=== PATIENT | male | born 1960 | race American Indian/Alaskan Native ===

== ENCOUNTER 2017-10-07 09:43 | Inpatient (IN) | payer MEDICARE ==
[2017-10-07 10:28] LABS: Basophils % (Auto) 1.2 % (0.0-1.8); Eosinophils % (Auto) 0.9 % (0.0-4.3); Hematocrit 49.9 % (35.5-45.6); Hemoglobin 16.8 gm/dl (11.8-15.2); Lymphocytes # (Auto) 1.2 K/mm3 (1.2-5.4); Lymphocytes % (Auto) 27.2 % (13.4-35.0); Mean Corpuscular HGB Conc 34 % (32-34); Mean Corpuscular Hemoglobin 34 pg (28-32); Mean Corpuscular Volume 100 fl (84-94); Monocytes # (Auto) 0.7 K/mm3 (0.0-0.8); Monocytes % (Auto) 15.5 % (0.0-7.3); Platelet Count 202 K/mm3 (140-440); Red Blood Count 4.99 M/mm3 (3.65-5.03); Red Cell Distribution Width 15.3 % (13.2-15.2)
[2017-10-07 10:42] LABS: Alanine Aminotransferase 17 units/L (7-56); Albumin 3.2 g/dL (3.9-5); BUN/Creatinine Ratio 12; Blood Urea Nitrogen 14 mg/dL (9-20); Calcium 9.3 mg/dL (8.4-10.2); Hemolysis Index 36
[2017-10-07] MEDS ORDERED: ATIVAN PO ONE (10:52)
[2017-10-07 12:07] LABS: Bacteria,Urine 1+ /HPF (Negative); Bilirubin,Urine NEG (Negative); Blood,Urine NEG (Negative); Color,Urine Straw (Yellow); Protein,Urine <15 mg/dL mg/dL (Negative); RBC,Urine < 1.0 /HPF (0.0-6.0); Urobilinogen,Urine < 2.0 mg/dL (<2.0); WBC,Urine < 1.0 /HPF (0.0-6.0)
[2017-10-07 12:15] LABS: Amphetamine Screen,Urine PRESUMPTIVE NEGATIVE; Benzodiazepines Screen,Urine PRESUMPTIVE NEGATIVE; Cannabinoid Screen,Urine PRESUMPTIVE NEGATIVE; Cocaine Screen,Urine PRESUMPTIVE NEGATIVE; Methadone Screen,Urine PRESUMPTIVE NEGATIVE; Opiate Screen,Urine PRESUMPTIVE NEGATIVE
[2017-10-07] MEDS ORDERED: GEODON IM ONE (12:23)
--- NOTE | 2017-10-07 12:50 | Emergency Department Report ---
ED Syncope HPI - General Chief Complaint: Altered Mental Status Stated Complaint: INCOHERENT Time Seen by Provider: 10/07/17 10:39 Source: other (care takers) Exam Limitations: other (does not speak) - History of Present Illness Initial Comments: 57-year-old male with a past medical history of autism, MR,, Down's syndrome, hyperlipidemia, and partially blind presents to the hospital with complaints of possible syncopal episode. Patient apparently has sleep apnea and falls asleep frequently about the date. He has received extensive recent outpatient workup and they attempted to start a CPAP mask yesterday the patient refused to wear the mask. They were scheduled to see their primary care doctor today to determine alternative treatment. After breakfast patient seemed to become unresponsive while sitting at the table. Assuming he was asleep the final canoe inspector tried to stand the patient up but then he became unresponsive. No seizure activity noted. Patient's currently at his baseline mental status. He's been eating and drinking appropriately with no other abnormal behavior or infectious symptoms reported. Patient is nonverbal at baseline. - Related Data Allergies/Adverse Reactions: Allergies codeine Allergy (Verified 02/11/16 20:08) Unknown ED Review of Systems ROS: Stated complaint: INCOHERENT Other details as noted in HPI Comment: All other systems reviewed and negative (as per caretakers since pt is nonverbal) ED Past Medical Hx - Past Medical History Previous Medical History?: Yes Additional medical history: MR,DOWN SYNDROME, Hyperlipidemia, Partially blind - Surgical History Past Surgical History?: No - Social History Smoking Status: Never Smoker Substance Use Type: Prescribed ED Physical Exam - General Limitations: No Limitations - Other Other exam information: General: Nonverbal Head exam: Atraumatic, normocephalic Eyes exam: Normal appearance ENT: Moist mucous membrane, normal oropharynx Neck exam: Normal inspection, full range of motion Respiratory exam: Clear to auscultation bilateral, no wheezes, rales, crackles Cardiovascular: Normal rate and rhythm Abdomen: Soft, nondistended, and nontender, with normal bowel sounds, no rebound, or guarding Extremity: Full range of motion normal inspection no deformity Back: Normal Inspection, full range of motion, no tenderness Neurologic: Alert, nonverbal, follows commands, no gross motor or sensory deficit Psychiatric: normal affect, normal mood Skin: Warm, dry, intact ED Course Vital Signs 0310/07/17 10/07/17 09:52 11:00 11:07 Temperature 97.8 F 98.6 F Pulse Rate 77 65 Respiratory 18 11 L Rate Blood Pressure 118/52 125/72 Blood Pressure 112/55 [Right] O2 Sat by Pulse 99 100 Oximetry ED Medical Decision Making - Lab Data Result diagrams: 10/07/17 10:00 10/07/17 10:00 Lab Results 10/07/17 10/07/17 10/07/17 Range/Units 10:00 10:00 10:00 WBC 4.2 L (4.5-11.0) K/mm3 RBC 4.99 (3.65-5.03) M/mm3 Hgb 16.8 H (11.8-15.2) gm/dl Hct 49.9 H (35.5-45.6) % MCV 100 H (84-94) fl MCH 34 H (28-32) pg MCHC 34 (32-34) % RDW 15.3 H (13.2-15.2) % Plt Count 202 (140-440) K/mm3 Lymph % (Auto) 27.2 (13.4-35.0) % [place] % (Auto) 15.5 H (0.0-7.3) % Eos % (Auto) 0.9 (0.0-4.3) % Baso % (Auto) 1.2 (0.0-1.8) % Lymph # 1.2 (1.2-5.4) K/mm3 [place] # 0.7 (0.0-0.8) K/mm3 Eos # 0.0 (0.0-0.4) K/mm3 Baso # 0.0 (0.0-0.1) K/mm3 Seg Neutrophils % 55.2 (40.0-70.0) % Seg Neutrophils # 2.3 (1.8-7.7) K/mm3 Sodium 139 (137-145) mmol/L Potassium 3.7 (3.6-5.0) mmol/L Chloride 99.6 (98-107) mmol/L Carbon Dioxide 29 (22-30) mmol/L Anion Gap 14 mmol/L BUN 14 (9-20) mg/dL Creatinine 1.2 (0.8-1.5) mg/dL Estimated GFR > 60 ml/min BUN/Creatinine Ratio 12 % Glucose 71 L (75-100) mg/dL Calcium 9.3 (8.4-10.2) mg/dL Total Bilirubin 0.60 (0.1-1.2) mg/dL AST 25 (5-40) units/L ALT 17 (7-56) units/L Alkaline Phosphatase 73 (35-129) units/L Total Creatine Kinase 125 (55-170) units/L CK-MB (CK-2) 3.0 (0.0-4.0) ng/mL CK-MB (CK-2) Rel Index 2.4 (0-4) Troponin T < 0.010 (0.00-0.029) ng/mL Total Protein 7.1 (6.3-8.2) g/dL Albumin 3.2 L (3.9-5) g/dL Albumin/Globulin Ratio 0.8 % Urine Color (Yellow) Urine Turbidity (Clear) Urine pH (5.0-7.0) Ur Specific [place] (1.003-1.030) Urine Protein (Negative) mg/dL Urine Glucose (UA) (Negative) mg/dL Urine Ketones (Negative) mg/dL Urine Blood (Negative) Urine Nitrite (Negative) Urine Bilirubin (Negative) Urine Urobilinogen (<2.0) mg/dL Ur Leukocyte Esterase (Negative) Urine WBC (Auto) (0.0-6.0) /HPF Urine RBC (Auto) (0.0-6.0) /HPF Urine Bacteria (Auto) (Negative) /HPF Urine Opiates Screen Urine Methadone Screen Ur Barbiturates Screen Ur Phencyclidine Scrn Ur Amphetamines Screen U Benzodiazepines Scrn Urine Cocaine Screen U Marijuana (THC) Screen Drugs of Abuse Note 10/07/17 10/07/17 Range/Units 11:36 11:36 WBC (4.5-11.0) K/mm3 RBC (3.65-5.03) M/mm3 Hgb (11.8-15.2) gm/dl Hct (35.5-45.6) % MCV (84-94) fl MCH (28-32) pg MCHC (32-34) % RDW (13.2-15.2) % Plt Count (140-440) K/mm3 Lymph % (Auto) (13.4-35.0) % [place] % (Auto) (0.0-7.3) % Eos % (Auto) (0.0-4.3) % Baso % (Auto) (0.0-1.8) % Lymph # (1.2-5.4) K/mm3 [place] # (0.0-0.8) K/mm3 Eos # (0.0-0.4) K/mm3 Baso # (0.0-0.1) K/mm3 Seg Neutrophils % (40.0-70.0) % Seg Neutrophils # (1.8-7.7) K/mm3 Sodium (137-145) mmol/L Potassium (3.6-5.0) mmol/L Chloride (98-107) mmol/L Carbon Dioxide (22-30) mmol/L Anion Gap mmol/L BUN (9-20) mg/dL Creatinine (0.8-1.5) mg/dL Estimated GFR ml/min BUN/Creatinine Ratio % Glucose (75-100) mg/dL Calcium (8.4-10.2) mg/dL Total Bilirubin (0.1-1.2) mg/dL AST (5-40) units/L ALT (7-56) units/L Alkaline Phosphatase (35-129) units/L Total Creatine Kinase (55-170) units/L CK-MB (CK-2) (0.0-4.0) ng/mL CK-MB (CK-2) Rel Index (0-4) Troponin T (0.00-0.029) ng/mL Total Protein (6.3-8.2) g/dL Albumin (3.9-5) g/dL Albumin/Globulin Ratio % Urine Color Straw (Yellow) Urine Turbidity Clear (Clear) Urine pH 7.0 (5.0-7.0) Ur Specific [place] 1.005 (1.003-1.030) Urine Protein <15 mg/dl (Negative) mg/dL Urine Glucose (UA) Neg (Negative) mg/dL Urine Ketones Neg (Negative) mg/dL Urine Blood Neg (Negative) Urine Nitrite Neg (Negative) Urine Bilirubin Neg (Negative) Urine Urobilinogen < 2.0 (<2.0) mg/dL Ur Leukocyte Esterase Neg (Negative) Urine WBC (Auto) < 1.0 (0.0-6.0) /HPF Urine RBC (Auto) < 1.0 (0.0-6.0) /HPF Urine Bacteria (Auto) 1+ (Negative) /HPF Urine Opiates Screen Presumptive negative Urine Methadone Screen Presumptive negative Ur Barbiturates Screen Presumptive negative Ur Phencyclidine Scrn Presumptive negative Ur Amphetamines Screen Presumptive negative U Benzodiazepines Scrn Presumptive negative Urine Cocaine Screen Presumptive negative U Marijuana (THC) Screen Presumptive negative Drugs of Abuse Note Disclamer - EKG Data -: EKG Interpreted by Pr EKG shows normal: sinus rhythm, axis (qrs 58), QRS complexes (75), ST-T waves ( no stemi) Rate: bradycardia (51) - Radiology Data Radiology results: report reviewed read by radiology ct head: no acute findings - Medical Decision Making Possible syncope versus sleeping episode Caretakers state that patient passed out in episode was different from his typical sleeping spells Patient required Ativan and Geodon for sedation to obtain CT labs, Ua, ct head unremarkable - Differential Diagnosis syncope, narcolepsy, encephalopathy, infection Critical care attestation.: If time is entered above; I have spent that time in minutes in the direct care of this critically ill patient, excluding procedure time. ED Disposition Clinical Impression: Syncope, Mental retardation Disposition: DC-09 OP ADMIT IP TO THIS HOSP Is pt being admited?: Yes Condition: Stable Time of Disposition: 15:14
[2017-10-07] MEDS ORDERED: ATIVAN IM ONE (13:51)
--- NOTE | 2017-10-07 14:13 | Cat Scan Report ---
CT HEAD WITHOUT CONTRAST: HISTORY: Syncope. TECHNIQUE: Sequential 2.5mm CT images. COMPARISON: 03/11/11. FINDINGS: Cerebral Parenchyma: Within normal limits. Cerebellum: Within normal limits. Brainstem: Within normal limits. Ventricles: Normal. Sella: Normal. Extra-axial spaces: Normal. Basal Cisterns: Normal. Intracranial Hemorrhage: None. Midline Shift: None. Calvarium: Normal. Sinuses: Normal. Mastoid Air Cells: Normal. Visualized Orbits: Normal. IMPRESSION: Cranial CT scan within normal limits.
[2017-10-07] MEDS ORDERED: ZOFRAN IV PRN (15:28)
[2017-10-07] MEDS ORDERED: TYLENOL PO PRN (15:28)
[2017-10-07] MEDS ORDERED: PROVENTIL IH PRN (15:28)
[2017-10-07] MEDS ORDERED: SODIUM CHLORIDE FLUSH SYRINGE 10 ML IV PRN (15:28)
[2017-10-07] MEDS ORDERED: GEODON IM PRN (15:31)
[2017-10-07] MEDS ORDERED: ATIVAN IV NR (15:45)
--- NOTE | 2017-10-07 15:56 | History and Physical Report ---
History of Present Illness Chief complaint: confused, and he passed out History of present illness: 57 YO Male with Autism, MR, Down's Syndrome, HLD, NOY Noncompliant with CPAP, Partial Blindness presents to ED for evaluation. Pt is nonverbal and unable to provide detailed history. Pt history taken from ED staff, and medical records, and caregiver. Pt caregiver is at bedside during exam and interview. As per caregiver, the patient became confused after eating breakfast this morning and became responsive while sitting at the table. Assuming he was asleep-the chief reservoir engineering attempted to stand the patient up without success. The patient became unresponsive. EMS notified, and upon arrival the patient was found to be confused and in respiratory distress. The patient was transported to [facility] for further care and evaluation. Pt seen and evaluated in ED and admitted to medical floor. Past History Past Medical History: hyperlipidemia, other (MR, Autism,Downs syndrome ) Past Surgical History: No surgical history Social history: single. denies: smoking, alcohol abuse, prescription drug abuse Family history: no significant family history (reviewed) Medications and Allergies Allergies Allergy/AdvReac Type Severity Reaction Status Date / Time codeine Allergy Unknown Verified 02/11/16 20:08 Active Meds: Active Medications Acetaminophen (Tylenol) 650 mg PO Q4H PRN PRN Reason: Pain MILD(1-3)/Fever >100.5/[place] Albuterol (Proventil) 2.5 mg IH Q4HRT PRN PRN Reason: Shortness Of Breath Lorazepam (Ativan) 2 mg IV HIV/AIDS CARE NURSE NR Ondansetron HCl (Zofran) 4 mg IV Q8H PRN PRN Reason: Nausea And Vomiting Sodium Chloride (Sodium Chloride Flush Syringe 10 Ml) 10 ml IV BID LAZARUS Sodium Chloride (Sodium Chloride Flush Syringe 10 Ml) 10 ml IV PRN PRN PRN Reason: LINE FLUSH Ziprasidone (Geodon) 10 mg IM ONCE PRN PRN Reason: Agitation Review of Systems ROS unobtainable: due to mental status Exam - Constitutional Vitals: Temp Pulse Resp BP Pulse Ox 98.6 F 65 11 L 112/55 100 10/07/17 11:07 10/07/17 11:07 10/07/17 11:07 10/07/17 11:07 10/07/17 11:07 General appearance: Present: mild distress - EENT Eyes: Present: PERRL ENT: hearing intact, clear oral mucosa - Neck Neck: Present: supple, normal ROM - Respiratory Respiratory effort: labored Respiratory: bilateral: diminished - Cardiovascular Heart Sounds: Present: S1 & S2. Absent: rub, click - Extremities Extremities: pulses symmetrical, No edema - Abdominal General gastrointestinal: Present: soft, non-tender, non-distended, normal bowel sounds Male genitourinary: Present: normal - Integumentary Integumentary: Present: clear, warm, dry - Musculoskeletal Musculoskeletal: gait normal, strength equal bilaterally - Psychiatric Psychiatric: no intact judgment & insight, no memory intact - Neurologic Neurologic: no gait normal Results - Labs CBC & Chem 7: 10/07/17 10:00 10/07/17 10:00 Labs: Abnormal lab results 10/07/17 10/07/17 Range/Units 10:00 10:00 WBC 4.2 L (4.5-11.0) K/mm3 Hgb 16.8 H (11.8-15.2) gm/dl Hct 49.9 H (35.5-45.6) % MCV 100 H (84-94) fl MCH 34 H (28-32) pg RDW 15.3 H (13.2-15.2) % [place] % (Auto) 15.5 H (0.0-7.3) % Glucose 71 L (75-100) mg/dL Albumin 3.2 L (3.9-5) g/dL Assessment and Plan - Patient Problems (1) Encephalopathy Current Visit: Yes Status: Acute Plan to address problem: CT Head, neuro checks, EEG, BMP, IVF resuscitation, (2) NOY (obstructive sleep apnea) Current Visit: Yes Status: Acute Plan to address problem: NIPPV at night, supportive care, (3) Respiratory failure Current Visit: Yes Status: Acute Qualifiers: Chronicity: acute Respiratory failure complication: hypoxia Qualified Code(s): J96.01 - Acute respiratory failure with hypoxia Plan to address problem: Supplemental oxygen, nebulizer therapy, CTA chest, Chest x ray, (4) DVT prophylaxis Current Visit: Yes Status: Acute Plan to address problem: SCD to BLE while in bed.
--- NOTE | 2017-10-07 16:28 | Cat Scan Report ---
FINAL REPORT EXAM: CT ANGIO CHEST HISTORY: dypsnea TECHNIQUE: CT chest CT angiogram with intravenous contrast and multiplanar reconstructions PRIORS: None. FINDINGS: There is no evidence of filling defect within the central pulmonary vasculature to suggest the presence of acute pulmonary embolus. No evidence of mediastinal pathologic lymph node enlargement Heart and great vessels are unremarkable. The aorta is normal in caliber. No focal pulmonary infiltrate identified. No pleural fluid collection seen. No acute pulmonary abnormality noted. Visualized portion of the upper abdomen demonstrates no acute change. IMPRESSION: Negative. No CT evidence of acute pulmonary embolus
[2017-10-07] MEDS: SODIUM CHLORIDE FLUSH SYRINGE 10 ML IV SCH (22:57)
--- NOTE | 2017-10-08 13:41 | Progress Note ---
<BRIE GALLAGHER - Last Filed: 10/08/17 13:27> Assessment and Plan Assessment and plan: 57 YO Male with Autism, MR, Down's Syndrome, HLD, NOY Noncompliant with CPAP, Partial Blindness presents to ED for evaluation. Pt is nonverbal and unable to provide detailed history. Pt history taken from ED staff, and medical records, and caregiver. Pt caregiver is at bedside during exam and interview. As per caregiver, the patient became confused after eating breakfast this morning and became responsive while sitting at the table. Assuming he was asleep-the esl instructor attempted to stand the patient up without success. The patient became unresponsive. EMS notified, and upon arrival the patient was found to be confused and in respiratory distress. History obtained from Admitting Physician as caregiver is unavailable. Encephalopathy Head Cranial CT scan within normal limits , neuro checks, IVF resuscitation, NOY (obstructive sleep apnea) NIPPV at night, supportive care Respiratory failure Supplemental oxygen, nebulizer therapy, CTA chest-No CT evidence of acute pulmonary embolus Mild malnutrition Equal Opportunity Specialist consulted DVT prophylaxis SCD to BLE while in bed History Interval history: Patient seen and examined resting comfortably in bed. No new events overnight. Labs and nursing notes reviewed. Hospitalist Physical - Constitutional Vitals: Temp Pulse Resp BP Pulse Ox 97.9 F 75 20 94/47 100 10/08/17 12:04 10/08/17 12:04 10/08/17 12:04 10/08/17 12:04 10/08/17 12:04 General appearance: Present: no acute distress, well-nourished - EENT Eyes: Present: PERRL, EOM intact ENT: hearing intact, clear oral mucosa - Neck Neck: Present: supple, normal ROM - Respiratory Respiratory effort: normal Respiratory: bilateral: CTA - Cardiovascular Rhythm: regular Heart Sounds: Present: S1 & S2 - Extremities Extremities: no ischemia, pulses intact, No edema - Abdominal General gastrointestinal: soft, non-tender, non-distended - Integumentary Integumentary: Present: clear, warm, dry - Psychiatric Psychiatric: cooperative, other (calm) - Neurologic Neurologic: CNII-XII intact, moves all extremities - Allied Health Allied health notes reviewed: nursing Results - Labs CBC & Chem 7: 10/07/17 10:00 10/07/17 10:00 Labs: Laboratory Last Values WBC 4.2 K/mm3 (4.5-11.0) L 10/07/17 10:00 RBC 4.99 M/mm3 (3.65-5.03) 10/07/17 10:00 Hgb 16.8 gm/dl (11.8-15.2) H 10/07/17 10:00 Hct 49.9 % (35.5-45.6) H 10/07/17 10:00 MCV 100 fl (84-94) H 10/07/17 10:00 MCH 34 pg (28-32) H 10/07/17 10:00 MCHC 34 % (32-34) 10/07/17 10:00 RDW 15.3 % (13.2-15.2) H 10/07/17 10:00 Plt Count 202 K/mm3 (140-440) 10/07/17 10:00 Lymph % (Auto) 27.2 % (13.4-35.0) 10/07/17 10:00 [place] % (Auto) 15.5 % (0.0-7.3) H 10/07/17 10:00 Eos % (Auto) 0.9 % (0.0-4.3) 10/07/17 10:00 Baso % (Auto) 1.2 % (0.0-1.8) 10/07/17 10:00 Lymph # 1.2 K/mm3 (1.2-5.4) 10/07/17 10:00 [place] # 0.7 K/mm3 (0.0-0.8) 10/07/17 10:00 Eos # 0.0 K/mm3 (0.0-0.4) 10/07/17 10:00 Baso # 0.0 K/mm3 (0.0-0.1) 10/07/17 10:00 Seg Neutrophils % 55.2 % (40.0-70.0) 10/07/17 10:00 Seg Neutrophils # 2.3 K/mm3 (1.8-7.7) 10/07/17 10:00 Sodium 139 mmol/L (137-145) 10/07/17 10:00 Potassium 3.7 mmol/L (3.6-5.0) 10/07/17 10:00 Chloride 99.6 mmol/L (98-107) 10/07/17 10:00 Carbon Dioxide 29 mmol/L (22-30) 10/07/17 10:00 Anion Gap 14 mmol/L 10/07/17 10:00 BUN 14 mg/dL (9-20) 10/07/17 10:00 Creatinine 1.2 mg/dL (0.8-1.5) 10/07/17 10:00 Estimated GFR > 60 ml/min 10/07/17 10:00 BUN/Creatinine Ratio 12 % 10/07/17 10:00 Glucose 71 mg/dL (75-100) L 10/07/17 10:00 Calcium 9.3 mg/dL (8.4-10.2) 10/07/17 10:00 Total Bilirubin 0.60 mg/dL (0.1-1.2) 10/07/17 10:00 AST 25 units/L (5-40) 10/07/17 10:00 ALT 17 units/L (7-56) 10/07/17 10:00 Alkaline Phosphatase 73 units/L (35-129) 10/07/17 10:00 Ammonia 48.0 umol/L (25-60) 10/08/17 10:27 Total Creatine Kinase 125 units/L (55-170) 10/07/17 10:00 CK-MB (CK-2) 3.0 ng/mL (0.0-4.0) 10/07/17 10:00 CK-MB (CK-2) Rel Index 2.4 (0-4) 10/07/17 10:00 Troponin T < 0.010 ng/mL (0.00-0.029) 10/07/17 10:00 Total Protein 7.1 g/dL (6.3-8.2) 10/07/17 10:00 Albumin 3.2 g/dL (3.9-5) L 10/07/17 10:00 Albumin/Globulin Ratio 0.8 % 10/07/17 10:00 Urine Color Straw (Yellow) 10/07/17 11:36 Urine Turbidity Clear (Clear) 10/07/17 11:36 Urine pH 7.0 (5.0-7.0) 10/07/17 11:36 Ur Specific [place] 1.005 (1.003-1.030) 10/07/17 11:36 Urine Protein <15 mg/dl mg/dL (Negative) 10/07/17 11:36 Urine Glucose (UA) Neg mg/dL (Negative) 10/07/17 11:36 Urine Ketones Neg mg/dL (Negative) 10/07/17 11:36 Urine Blood Neg (Negative) 10/07/17 11:36 Urine Nitrite Neg (Negative) 10/07/17 11:36 Urine Bilirubin Neg (Negative) 10/07/17 11:36 Urine Urobilinogen < 2.0 mg/dL (<2.0) 10/07/17 11:36 Ur Leukocyte Esterase Neg (Negative) 10/07/17 11:36 Urine WBC (Auto) < 1.0 /HPF (0.0-6.0) 10/07/17 11:36 Urine RBC (Auto) < 1.0 /HPF (0.0-6.0) 10/07/17 11:36 Urine Bacteria (Auto) 1+ /HPF (Negative) 10/07/17 11:36 Urine Opiates Screen Presumptive negative 10/07/17 11:36 Urine Methadone Screen Presumptive negative 10/07/17 11:36 Ur Barbiturates Screen Presumptive negative 10/07/17 11:36 Ur Phencyclidine Scrn Presumptive negative 10/07/17 11:36 Ur Amphetamines Screen Presumptive negative 10/07/17 11:36 U Benzodiazepines Scrn Presumptive negative 10/07/17 11:36 Urine Cocaine Screen Presumptive negative 10/07/17 11:36 U Marijuana (THC) Screen Presumptive negative 10/07/17 11:36 Drugs of Abuse Note Disclamer 10/07/17 11:36 <JOAQUIN ROBIN - Last Filed: 10/08/17 21:57> Assessment and Plan Assessment and plan: I saw and evaluated the patient. I agree with the findings and the plan of care as documented in the PA's~note, with the following corrections and additions. Hospitalist Physical - Constitutional Vitals: Temp Pulse Resp BP Pulse Ox 98.1 F 87 18 126/80 100 10/08/17 19:59 10/08/17 19:59 10/08/17 19:59 10/08/17 19:59 10/08/17 15:39 Results - Labs CBC & Chem 7: 10/07/17 10:00 10/07/17 10:00 Labs: Laboratory Last Values WBC 4.2 K/mm3 (4.5-11.0) L 10/07/17 10:00 RBC 4.99 M/mm3 (3.65-5.03) 10/07/17 10:00 Hgb 16.8 gm/dl (11.8-15.2) H 10/07/17 10:00 Hct 49.9 % (35.5-45.6) H 10/07/17 10:00 MCV 100 fl (84-94) H 10/07/17 10:00 MCH 34 pg (28-32) H 10/07/17 10:00 MCHC 34 % (32-34) 10/07/17 10:00 RDW 15.3 % (13.2-15.2) H 10/07/17 10:00 Plt Count 202 K/mm3 (140-440) 10/07/17 10:00 Lymph % (Auto) 27.2 % (13.4-35.0) 10/07/17 10:00 [place] % (Auto) 15.5 % (0.0-7.3) H 10/07/17 10:00 Eos % (Auto) 0.9 % (0.0-4.3) 10/07/17 10:00 Baso % (Auto) 1.2 % (0.0-1.8) 10/07/17 10:00 Lymph # 1.2 K/mm3 (1.2-5.4) 10/07/17 10:00 [place] # 0.7 K/mm3 (0.0-0.8) 10/07/17 10:00 Eos # 0.0 K/mm3 (0.0-0.4) 10/07/17 10:00 Baso # 0.0 K/mm3 (0.0-0.1) 10/07/17 10:00 Seg Neutrophils % 55.2 % (40.0-70.0) 10/07/17 10:00 Seg Neutrophils # 2.3 K/mm3 (1.8-7.7) 10/07/17 10:00 Sodium 139 mmol/L (137-145) 10/07/17 10:00 Potassium 3.7 mmol/L (3.6-5.0) 10/07/17 10:00 Chloride 99.6 mmol/L (98-107) 10/07/17 10:00 Carbon Dioxide 29 mmol/L (22-30) 10/07/17 10:00 Anion Gap 14 mmol/L 10/07/17 10:00 BUN 14 mg/dL (9-20) 10/07/17 10:00 Creatinine 1.2 mg/dL (0.8-1.5) 10/07/17 10:00 Estimated GFR > 60 ml/min 10/07/17 10:00 BUN/Creatinine Ratio 12 % 10/07/17 10:00 Glucose 71 mg/dL (75-100) L 10/07/17 10:00 Calcium 9.3 mg/dL (8.4-10.2) 10/07/17 10:00 Total Bilirubin 0.60 mg/dL (0.1-1.2) 10/07/17 10:00 AST 25 units/L (5-40) 10/07/17 10:00 ALT 17 units/L (7-56) 10/07/17 10:00 Alkaline Phosphatase 73 units/L (35-129) 10/07/17 10:00 Ammonia 48.0 umol/L (25-60) 10/08/17 10:27 Total Creatine Kinase 125 units/L (55-170) 10/07/17 10:00 CK-MB (CK-2) 3.0 ng/mL (0.0-4.0) 10/07/17 10:00 CK-MB (CK-2) Rel Index 2.4 (0-4) 10/07/17 10:00 Troponin T < 0.010 ng/mL (0.00-0.029) 10/07/17 10:00 Total Protein 7.1 g/dL (6.3-8.2) 10/07/17 10:00 Albumin 3.2 g/dL (3.9-5) L 10/07/17 10:00 Albumin/Globulin Ratio 0.8 % 10/07/17 10:00 Urine Color Straw (Yellow) 10/07/17 11:36 Urine Turbidity Clear (Clear) 10/07/17 11:36 Urine pH 7.0 (5.0-7.0) 10/07/17 11:36 Ur Specific [place] 1.005 (1.003-1.030) 10/07/17 11:36 Urine Protein <15 mg/dl mg/dL (Negative) 10/07/17 11:36 Urine Glucose (UA) Neg mg/dL (Negative) 10/07/17 11:36 Urine Ketones Neg mg/dL (Negative) 10/07/17 11:36 Urine Blood Neg (Negative) 10/07/17 11:36 Urine Nitrite Neg (Negative) 10/07/17 11:36 Urine Bilirubin Neg (Negative) 10/07/17 11:36 Urine Urobilinogen < 2.0 mg/dL (<2.0) 10/07/17 11:36 Ur Leukocyte Esterase Neg (Negative) 10/07/17 11:36 Urine WBC (Auto) < 1.0 /HPF (0.0-6.0) 10/07/17 11:36 Urine RBC (Auto) < 1.0 /HPF (0.0-6.0) 10/07/17 11:36 Urine Bacteria (Auto) 1+ /HPF (Negative) 10/07/17 11:36 Urine Opiates Screen Presumptive negative 10/07/17 11:36 Urine Methadone Screen Presumptive negative 10/07/17 11:36 Ur Barbiturates Screen Presumptive negative 10/07/17 11:36 Ur Phencyclidine Scrn Presumptive negative 10/07/17 11:36 Ur Amphetamines Screen Presumptive negative 10/07/17 11:36 U Benzodiazepines Scrn Presumptive negative 10/07/17 11:36 Urine Cocaine Screen Presumptive negative 10/07/17 11:36 U Marijuana (THC) Screen Presumptive negative 10/07/17 11:36 Drugs of Abuse Note Disclamer 10/07/17 11:36
[2017-10-08] MEDS: SODIUM CHLORIDE FLUSH SYRINGE 10 ML IV SCH ×2 (20:27→21:43)
--- NOTE | 2017-10-09 11:28 | Discharge Summary ---
<BRIE GALLAGHER - Last Filed: 10/09/17 11:26> Providers - Providers Date of Admission: 10/07/17 15:28 Attending physician: JOAQUIN ROBIN MD 10/08/17 13:32 Consult to Dietitian/Nutrition [CONS] Routine Physician Instructions: Reason For Exam: Reason for Consult: Malnutrition Primary care physician: ED MARIE Hospitalization Condition: Stable Disposition: DC-30 STILL A PATIENT Exam - Constitutional Vitals: Temp Pulse Resp BP Pulse Ox 97.8 F 66 14 114/63 98 10/09/17 07:22 10/09/17 07:22 10/09/17 07:22 10/09/17 07:22 10/09/17 07:22 Plan Follow up with: ED MARIE MD [Primary Care Provider] - 3-5 Days RJ HERBERT MD [Staff Physician] - 7 Days <JOAQUIN ROBIN - Last Filed: 10/09/17 17:59> Providers - Providers Date of Admission: 10/07/17 15:28 Attending physician: JOAQUIN ROBIN MD 10/08/17 13:32 Consult to Dietitian/Nutrition [CONS] Routine Physician Instructions: Reason For Exam: Reason for Consult: Malnutrition Primary care physician: ED MARIE Exam - Constitutional Vitals: Temp Pulse Resp BP Pulse Ox 98.0 F 95 H 18 120/64 97 10/09/17 15:27 10/09/17 15:27 10/09/17 15:27 10/09/17 15:27 10/09/17 15:27 Plan Additional Instructions: NEEDS ECHOCARDIOGRAM OUTPTIENT
[2017-10-09 16:22] VITALS: BP 120/64
[2017-10-09] MEDS: SODIUM CHLORIDE FLUSH SYRINGE 10 ML IV SCH (20:22)
== END 2017-10-09 19:30 | disposition home or self-care (01) | DRG 70 ==
LOC: ED 09:43 → 3A 15:28
PROVIDERS: ADMIT Internal Medicine; ATTEND Internal Medicine
PROC: 4A033R1 Measurement of Arterial Saturation, Peripheral, Percutaneous Approach (ICD-10-PCS; principal; 2017-10-08)
DX: G93.40 Encephalopathy, unspecified (principal); J96.90 Respiratory failure, unspecified, unspecified whether with hypoxia or hypercapnia; E44.1 Mild protein-calorie malnutrition; F84.0 Autistic disorder; H54.7 Unspecified visual loss; F79 Unspecified intellectual disabilities; E78.5 Hyperlipidemia, unspecified; G47.33 Obstructive sleep apnea (adult) (pediatric); Z68.23 Body mass index [BMI] 23.0-23.9, adult; Q90.9 Down syndrome, unspecified; Z88.5 Allergy status to narcotic agent; Z91.19 Patient's noncompliance with other medical treatment and regimen
CPT/HCPCS: 36415; 70450; 71275; 80053; 80307; 81001; 82140; 82550; 82553; 84484; 85025; 93005; 93010; 96372; J3486; Q9967

== ENCOUNTER 2019-03-14 12:24 | Emergency (ER) | payer MEDICARE ==
--- NOTE | 2019-03-14 12:41 | Event Note ---
ED Screening Note ED Screening Note: PMH MR NOY NARCOLEPSY HX SYNCOPE WAS ON COMMODE STOOD FELL TO LEFT INCONTINENT BOWEL BLADDER NO HX SZ This initial assessment/diagnostic orders/clinical plan/treatment(s) is/are subject to change based on patients health status, clinical progression and re- assessment by fellow clinical providers in the ED. Further treatment and workup at subsequent clinical providers discretion. Patient/guardian urged not to elope from the ED as their condition may be serious if not clinically assessed and managed. Initial orders include: EKG LABS U/A
--- NOTE | 2019-03-14 13:12 | Emergency Department Report ---
ED General Adult HPI - General Chief complaint: Fall Stated complaint: FALL Time Seen by Provider: 03/14/19 12:38 Source: patient Mode of arrival: Ambulatory Limitations: No Limitations - History of Present Illness Initial comments: Patient is a 58-year-old -[place] male with history of Down syndrome, who was at a day care program, when he was trying to have a bowel movement, stood up, did have a brief of consciousness, fell, came back to it pretty quickly, and is now at baseline. no injury. he has a h/o syncopal episodes. - Related Data Home Medications Medication Instructions Recorded Confirmed Last Taken Calcium Carbonate/Vitamin D3 1 each PO QAM 10/07/17 03/14/19 Unknown [Calcium 600-Vit D3 200 Tablet] Docusate Sodium [Stool Softener] 100 mg PO DAILY 10/07/17 03/14/19 Unknown Levothyroxine [Synthroid] 25 mcg PO QAM 10/07/17 03/14/19 Unknown Pravastatin [Pravachol] 40 mg PO QHS 10/07/17 03/14/19 Unknown amLODIPine [Norvasc] 2.5 mg PO DAILY 10/07/17 03/14/19 Unknown Armodafinil 250 mg PO QAM 03/14/19 03/14/19 Unknown Doxycycline Hyclate [Doxycycline 100 mg PO Q12HR 03/14/19 03/14/19 Unknown Hyclate TAB] Allergies Allergy/AdvReac Type Severity Reaction Status Date / Time codeine Allergy Unknown Verified 02/11/16 20:08 ED Review of Systems ROS: Stated complaint: FALL Other details as noted in HPI Comment: Unobtainable due to pts medical conditions ED Past Medical Hx - Past Medical History Previous Medical History?: Yes Additional medical history: MR,DOWN SYNDROME, Hyperlipidemia, Partially blind - Surgical History Past Surgical History?: No - Social History Smoking Status: Never Smoker - Medications Home Medications: Home Medications Medication Instructions Recorded Confirmed Last Taken Type Calcium Carbonate/Vitamin D3 1 each PO QAM 10/07/17 03/14/19 Unknown History [Calcium 600-Vit D3 200 Tablet] Docusate Sodium [Stool Softener] 100 mg PO DAILY 10/07/17 03/14/19 Unknown History Levothyroxine [Synthroid] 25 mcg PO QAM 10/07/17 03/14/19 Unknown History Pravastatin [Pravachol] 40 mg PO QHS 10/07/17 03/14/19 Unknown History amLODIPine [Norvasc] 2.5 mg PO DAILY 10/07/17 03/14/19 Unknown History Armodafinil 250 mg PO QAM 03/14/19 03/14/19 Unknown History Doxycycline Hyclate [Doxycycline 100 mg PO Q12HR 03/14/19 03/14/19 Unknown History Hyclate TAB] ED Physical Exam - General Limitations: No Limitations General appearance: alert, in no apparent distress - Head Head exam: Present: atraumatic, normocephalic - Eye Eye exam: Present: normal appearance, PERRL, EOMI Pupils: Present: normal accommodation - ENT ENT exam: Present: normal exam, normal orophraynx - Neck Neck exam: Present: normal inspection - Respiratory Respiratory exam: Present: normal lung sounds bilaterally - Cardiovascular Cardiovascular Exam: Present: regular rate, normal rhythm - GI/Abdominal GI/Abdominal exam: Present: soft, normal bowel sounds - Back Exam Back exam: Present: normal inspection - Neurological Exam Neurological exam: Present: alert, oriented X3, CN II-XII intact - Skin Skin exam: Present: warm ED Course Vital Signs 03/14/19 15:27 Temperature 97.5 F L Pulse Rate 87 Respiratory 18 Rate Blood Pressure 110/60 [Left] O2 Sat by Pulse 99 Oximetry ED Medical Decision Making - Lab Data Result diagrams: 03/14/19 13:01 03/14/19 13:01 Critical care attestation.: If time is entered above; I have spent that time in minutes in the direct care of this critically ill patient, excluding procedure time. ED Disposition Clinical Impression: Vasovagal episode Disposition: - TO HOME OR SELFCARE Is pt being admited?: No Does the pt Need Aspirin: No Condition: Stable Instructions: Syncope (ED) Referrals: PRIMARY CARE,MD [Primary Care Provider] - 3-5 Days
[2019-03-14 13:25] LABS: Hematocrit 49.3 % (35.5-45.6); Hemoglobin 16.7 gm/dl (11.8-15.2); Mean Corpuscular HGB Conc 34 % (32-34); Mean Corpuscular Volume 102 fl (84-94); Platelet Count 224 K/mm3 (140-440); Red Blood Count 4.81 M/mm3 (3.65-5.03)
[2019-03-14 13:44] LABS: Alanine Aminotransferase 19 units/L (7-56); Albumin 3.5 g/dL (3.9-5); BUN/Creatinine Ratio 16; Blood Urea Nitrogen 19 mg/dL (9-20); Calcium 9.8 mg/dL (8.4-10.2); Hemolysis Index 8
[2019-03-14 15:28] VITALS: BP 110/60
== END 2019-03-14 15:41 | disposition home or self-care (01) ==
LOC: ED 12:24
DX: R55 Syncope and collapse (principal); E78.5 Hyperlipidemia, unspecified; Z98.890 Other specified postprocedural states; Z88.5 Allergy status to narcotic agent; Z79.899 Other long term (current) drug therapy
CPT/HCPCS: 36415; 80053; 82550; 85027

== ENCOUNTER 2019-06-25 11:40 | Emergency (ER) | payer MEDICARE ==
[2019-06-25 13:05] LABS: Basophils % (Auto) 0.8 % (0.0-1.8); Eosinophils % (Auto) 0.2 % (0.0-4.3); Hematocrit 47.3 % (35.5-45.6); Hemoglobin 15.9 gm/dl (11.8-15.2); Lymphocytes # (Auto) 0.7 K/mm3 (1.2-5.4); Lymphocytes % (Auto) 18.5 % (13.4-35.0); Mean Corpuscular HGB Conc 34 % (32-34); Mean Corpuscular Volume 103 fl (84-94); Monocytes # (Auto) 0.5 K/mm3 (0.0-0.8); Monocytes % (Auto) 12.8 % (0.0-7.3); Platelet Count 183 K/mm3 (140-440); Red Cell Distribution Width 14.4 % (13.2-15.2)
--- NOTE | 2019-06-25 13:07 | Emergency Department Report ---
ED General Adult HPI - General Chief complaint: Weakness Stated complaint: AMS Time Seen by Provider: 06/25/19 12:47 Source: EMS Mode of arrival: Stretcher Limitations: Altered Mental Status - History of Present Illness Initial comments: 58 year O -[place] male with a history of Down syndrome brought in by caregivers concern for altered mental status. Caregiver reports the patient has a history of sleep apnea but does not use sleep apnea machine. Caregiver reports that he was seen by sleep apnea doctor and they have switched his medication from Armodafinil 250 mg Ritalin but they have not been able to fill the medication. Concerned they felt that the patient may have passed out for a few seconds. I give her reports that he feels that the patient is extremely tired. Caregiver reports that he is not at his baseline as he usually will sit his head at when his name is called. Caregiver feels that he may be disoriented. No problems taking his medications able to ambulate without difficulty. -: This morning Associated Symptoms: weakness Treatments Prior to Arrival: none - Related Data Home Medications Medication Instructions Recorded Confirmed Last Taken Calcium Carbonate/Vitamin D3 1 each PO QAM 10/07/17 03/14/19 Unknown [Calcium 600-Vit D3 200 Tablet] Docusate Sodium [Stool Softener] 100 mg PO DAILY 10/07/17 03/14/19 Unknown Levothyroxine [Synthroid] 25 mcg PO QAM 10/07/17 03/14/19 Unknown Pravastatin [Pravachol] 40 mg PO QHS 10/07/17 03/14/19 Unknown amLODIPine 2.5 mg PO DAILY 10/07/17 03/14/19 Unknown Armodafinil 250 mg PO QAM 03/14/19 03/14/19 Unknown Doxycycline Hyclate [Doxycycline 100 mg PO Q12HR 03/14/19 03/14/19 Unknown Hyclate TAB] Allergies Allergy/AdvReac Type Severity Reaction Status Date / Time codeine Allergy Unknown Verified 02/11/16 20:08 ED Review of Systems ROS: Stated complaint: AMS Other details as noted in HPI Comment: All other systems reviewed and negative ED Past Medical Hx - Past Medical History Previous Medical History?: Yes Additional medical history: MR,DOWN SYNDROME, Hyperlipidemia, Partially blind - Social History Smoking Status: Never Smoker - Medications Home Medications: Home Medications Medication Instructions Recorded Confirmed Last Taken Type Calcium Carbonate/Vitamin D3 1 each PO QAM 10/07/17 03/14/19 Unknown History [Calcium 600-Vit D3 200 Tablet] Docusate Sodium [Stool Softener] 100 mg PO DAILY 10/07/17 03/14/19 Unknown History Levothyroxine [Synthroid] 25 mcg PO QAM 10/07/17 03/14/19 Unknown History Pravastatin [Pravachol] 40 mg PO QHS 10/07/17 03/14/19 Unknown History amLODIPine 2.5 mg PO DAILY 10/07/17 03/14/19 Unknown History Armodafinil 250 mg PO QAM 03/14/19 03/14/19 Unknown History Doxycycline Hyclate [Doxycycline 100 mg PO Q12HR 03/14/19 03/14/19 Unknown History Hyclate TAB] ED Physical Exam - General Limitations: Altered Mental Status, Other (patient does not talk) General appearance: alert, in no apparent distress - Head Head exam: Present: atraumatic, normocephalic - Eye Eye exam: Present: normal appearance - ENT ENT exam: Present: mucous membranes moist - Neck Neck exam: Present: normal inspection, full ROM - Respiratory Respiratory exam: Present: normal lung sounds bilaterally. Absent: respiratory distress - Cardiovascular Cardiovascular Exam: Present: regular rate, normal rhythm. Absent: systolic murmur, diastolic murmur, rubs, gallop - GI/Abdominal GI/Abdominal exam: Present: soft, normal bowel sounds. Absent: distended - Extremities Exam Extremities exam: Present: normal inspection, full ROM - Back Exam Back exam: Present: normal inspection, full ROM - Neurological Exam Neurological exam: Present: alert - Psychiatric Psychiatric exam: Present: normal affect, normal mood - Skin Skin exam: Present: warm, dry, intact, normal color. Absent: rash ED Course Vital Signs 06/25/19 12:09 Temperature 97.0 F L Pulse Rate 88 Respiratory 18 Rate Blood Pressure 153/96 O2 Sat by Pulse 100 Oximetry ED Medical Decision Making - Lab Data Laboratory Last Values WBC 4.0 K/mm3 (4.5-11.0) L 06/25/19 12:53 RBC 4.60 M/mm3 (3.65-5.03) 06/25/19 12:53 Hgb 15.9 gm/dl (11.8-15.2) H 06/25/19 12:53 Hct 47.3 % (35.5-45.6) H 06/25/19 12:53 MCV 103 fl (84-94) H 06/25/19 12:53 MCH 35 pg (28-32) H 06/25/19 12:53 MCHC 34 % (32-34) 06/25/19 12:53 RDW 14.4 % (13.2-15.2) 06/25/19 12:53 Plt Count 183 K/mm3 (140-440) 06/25/19 12:53 Lymph % (Auto) 18.5 % (13.4-35.0) 06/25/19 12:53 [place] % (Auto) 12.8 % (0.0-7.3) H 06/25/19 12:53 Eos % (Auto) 0.2 % (0.0-4.3) 06/25/19 12:53 Baso % (Auto) 0.8 % (0.0-1.8) 06/25/19 12:53 Lymph # 0.7 K/mm3 (1.2-5.4) L 06/25/19 12:53 [place] # 0.5 K/mm3 (0.0-0.8) 06/25/19 12:53 Eos # 0.0 K/mm3 (0.0-0.4) 06/25/19 12:53 Baso # 0.0 K/mm3 (0.0-0.1) 06/25/19 12:53 Seg Neutrophils % 67.7 % (40.0-70.0) 06/25/19 12:53 Seg Neutrophils # 2.7 K/mm3 (1.8-7.7) 06/25/19 12:53 Sodium 140 mmol/L (137-145) 06/25/19 12:53 Potassium 4.6 mmol/L (3.6-5.0) 06/25/19 12:53 Chloride 102.3 mmol/L (98-107) 06/25/19 12:53 Carbon Dioxide 24 mmol/L (22-30) 06/25/19 12:53 Anion Gap 18 mmol/L 06/25/19 12:53 BUN 18 mg/dL (9-20) 06/25/19 12:53 Creatinine 1.0 mg/dL (0.8-1.5) 06/25/19 12:53 Estimated GFR > 60 ml/min 06/25/19 12:53 BUN/Creatinine Ratio 18 % 06/25/19 12:53 Glucose 106 mg/dL (75-100) H 06/25/19 12:53 Calcium 9.4 mg/dL (8.4-10.2) 06/25/19 12:53 Total Bilirubin 0.40 mg/dL (0.1-1.2) 06/25/19 12:53 AST 25 units/L (5-40) 06/25/19 12:53 ALT 19 units/L (7-56) 06/25/19 12:53 Alkaline Phosphatase 97 units/L (35-129) 06/25/19 12:53 Total Protein 7.4 g/dL (6.3-8.2) 06/25/19 12:53 Albumin 3.3 g/dL (3.9-5) L 06/25/19 12:53 Albumin/Globulin Ratio 0.8 % 06/25/19 12:53 Urine Color Yellow (Yellow) 06/25/19 15:14 Urine Turbidity Clear (Clear) 06/25/19 15:14 Urine pH 6.0 (5.0-7.0) 06/25/19 15:14 Ur Specific [place] 1.021 (1.003-1.030) 06/25/19 15:14 Urine Protein <15 mg/dl mg/dL (Negative) 06/25/19 15:14 Urine Glucose (UA) Neg mg/dL (Negative) 06/25/19 15:14 Urine Ketones Neg mg/dL (Negative) 06/25/19 15:14 Urine Blood Neg (Negative) 06/25/19 15:14 Urine Nitrite Neg (Negative) 06/25/19 15:14 Urine Bilirubin Neg (Negative) 06/25/19 15:14 Urine Urobilinogen < 2.0 mg/dL (<2.0) 06/25/19 15:14 Ur Leukocyte Esterase Neg (Negative) 06/25/19 15:14 Urine WBC (Auto) 1.0 /HPF (0.0-6.0) 06/25/19 15:14 Urine RBC (Auto) 1.0 /HPF (0.0-6.0) 06/25/19 15:14 Urine Mucus Few /HPF 06/25/19 15:14 - Medical Decision Making 58 year O -[place] male with a history of Down syndrome brought in by caregivers concern for altered mental status. Caregiver reports the patient has a history of sleep apnea but does not use sleep apnea machine. Caregiver reports that he was seen by sleep apnea doctor and they have switched his m edication from Armodafinil 250 mg Ritalin but they have not been able to fill the medication. Concerned they felt that the patient may have passed out for a few seconds. I give her reports that he feels that the patient is extremely tired. Caregiver reports that he is not at his baseline as he usually will sit his head at when his name is called. Caregiver feels that he may be disoriented. No problems taking his medications able to ambulate without difficulty. Critical care attestation.: If time is entered above; I have spent that time in minutes in the direct care of this critically ill patient, excluding procedure time. ED Disposition Clinical Impression: NOY (obstructive sleep apnea), Mental retardation Disposition: DC-01 TO HOME OR SELFCARE Is pt being admited?: No Does the pt Need Aspirin: No Condition: Stable Instructions: Insomnia (ED) Additional Instructions: Please follow up with his primary care provider in a geriatric mental health provider. Referrals: ED MARIE MD [Primary Care Provider] - 3-5 Days [facility] [Outside] - 3-5 Days [facility] [Outside] - 3-5 Days
[2019-06-25 13:21] LABS: Alanine Aminotransferase 19 units/L (7-56); Albumin 3.3 g/dL (3.9-5); BUN/Creatinine Ratio 18; Blood Urea Nitrogen 18 mg/dL (9-20); Calcium 9.4 mg/dL (8.4-10.2); Hemolysis Index 61
[2019-06-25 15:25] LABS: Bilirubin,Urine NEG (Negative); Blood,Urine NEG (Negative); Color,Urine Yellow (Yellow); Mucus,Urine FEW /HPF; Protein,Urine <15 mg/dL mg/dL (Negative); Urobilinogen,Urine < 2.0 mg/dL (<2.0)
[2019-06-25 16:22] VITALS: BP 142/90
== END 2019-06-25 16:21 | disposition home or self-care (01) ==
LOC: ED 11:40
DX: G47.33 Obstructive sleep apnea (adult) (pediatric) (principal); F79 Unspecified intellectual disabilities; Z79.899 Other long term (current) drug therapy; Z88.4 Allergy status to anesthetic agent
CPT/HCPCS: 36415; 80053; 81001; 85025

== ENCOUNTER 2020-06-06 07:45 | Emergency (ER) | payer MEDICARE ==
[2020-06-06 09:22] LABS: Basophils % (Auto) 0.7 % (0.0-1.8); Eosinophils % (Auto) 0.5 % (0.0-4.3); Hematocrit 49.1 % (35.5-45.6); Hemoglobin 16.6 gm/dl (11.8-15.2); Lymphocytes # (Auto) 0.8 K/mm3 (1.2-5.4); Lymphocytes % (Auto) 14.8 % (13.4-35.0); Mean Corpuscular HGB Conc 34 % (32-34); Mean Corpuscular Volume 103 fl (84-94); Monocytes # (Auto) 0.6 K/mm3 (0.0-0.8); Platelet Count 172 K/mm3 (140-440); Red Blood Count 4.77 M/mm3 (3.65-5.03); Red Cell Distribution Width 14.4 % (13.2-15.2)
[2020-06-06 09:41] LABS: Creatine Kinase MB 4.3 ng/mL (0.0-4.0)
[2020-06-06 09:44] LABS: Alanine Aminotransferase 20 units/L (7-56); Albumin 3.5 g/dL (3.9-5); BUN/Creatinine Ratio 14; Blood Urea Nitrogen 15 mg/dL (9-20); Hemolysis Index 12
[2020-06-06 09:45] LABS: Bilirubin,Direct < 0.2 mg/dL (0-0.2)
--- NOTE | 2020-06-06 13:12 | XRay Report ---
CHEST 1 VIEW 06/06/2020 12:05 PM INDICATION / CLINICAL INFORMATION: tachypnea. COMPARISON: CTA chest dated 10/07/2017. FINDINGS: SUPPORT DEVICES: None. HEART / MEDIASTINUM: No significant abnormality. LUNGS / PLEURA: No significant pulmonary or pleural abnormality. No pneumothorax. ADDITIONAL FINDINGS: No significant additional findings. IMPRESSION: No acute cardiopulmonary abnormality. Signer Name: Hugo Avendano MD Signed: 06/06/2020 1:12 PM Workstation Name: [id number]
[2020-06-06 14:22] VITALS: BP 118/56
--- NOTE | 2020-06-06 14:24 | Emergency Department Report ---
ED General Adult HPI - General Chief complaint: Syncope Stated complaint: SYNCOPE Source: family Mode of arrival: Ambulatory Limitations: Other - History of Present Illness Initial comments: 49-year-old male with a history of Down syndrome who resides in a senior care presents for evaluation with his caregiver. Apparently the patient, laid on the floor and was very lethargic. He may have passed out. The caregiver describes no tonic-clonic movements. He was lethargic for some time closing emergency department evaluation. By the time of presentation he was completely awake. The caregiver states he has had several similar such episodes. He has had a previously negative CT of the head as well as CT angiogram in 2018. The caregiver says that these occurrences are not infrequent. The patient has never been diagnosed with a seizure. The caregiver states he thinks that the episodes are due to "sleep apnea". The patient has been prescribed a CPAP mask. However he has never been cooperative enough to wear it. The patient is very sight impaired. Caregiver does report to me that the patient had times gets very anxious and breathes very rapidly. Apparently when he had a blood gas assay he had a similar such episode today. -: minutes(s) Associated Symptoms: denies other symptoms (Patient without other apparent change or symptom) Treatments Prior to Arrival: none - Related Data Home Medications Medication Instructions Recorded Confirmed Last Taken Calcium Carbonate/Vitamin D3 1 each PO QAM 10/07/17 06/06/20 1 Day Ago [Calcium 600-Vit D3 200 Tablet] ~06/05/20 Docusate Sodium [Stool Softener] 100 mg PO DAILY 10/07/17 06/06/20 1 Day Ago ~06/05/20 Levothyroxine [Synthroid] 25 mcg PO QAM 10/07/17 06/06/20 1 Day Ago ~06/05/20 Pravastatin [Pravachol] 40 mg PO QHS 10/07/17 06/06/20 1 Day Ago ~06/05/20 amLODIPine 2.5 mg PO DAILY 10/07/17 06/06/20 1 Day Ago ~06/05/20 Doxycycline Hyclate [Doxycycline 100 mg PO Q12HR 03/14/19 06/06/20 1 Day Ago Hyclate TAB] ~06/05/20 armodafiniL [Armodafinil] 250 mg PO QAM 03/14/19 06/06/20 1 Day Ago ~06/05/20 Melatonin [Melatonin 5MG CAP] 5 mg PO DAILY 06/06/20 06/06/20 1 Day Ago ~06/05/20 Methylphenidate [Ritalin] 20 mg PO BID 06/06/20 06/06/20 1 Day Ago ~06/05/20 Mirabegron [Myrbetriq] 50 mg PO QDAY 06/06/20 06/06/20 1 Day Ago ~06/05/20 Allergies Allergy/AdvReac Type Severity Reaction Status Date / Time codeine Allergy Unknown Verified 06/06/20 07:46 ED Review of Systems ROS: Stated complaint: SYNCOPE Other details as noted in HPI Comment: Unobtainable due to pts medical conditions ED Past Medical Hx - Past Medical History Previous Medical History?: Yes Additional medical history: MR,DOWN SYNDROME, Hyperlipidemia, Partially blind, syncope - Surgical History Additional Surgical History: UNABLE TO GET B/P IN TRAIGE OR EKG IN TRIAGE - Social History Smoking Status: Never Smoker Substance Use Type: None - Medications Home Medications: Home Medications Medication Instructions Recorded Confirmed Last Taken Type Calcium Carbonate/Vitamin D3 1 each PO QAM 10/07/17 06/06/20 1 Day Ago History [Calcium 600-Vit D3 200 Tablet] ~06/05/20 Docusate Sodium [Stool Softener] 100 mg PO DAILY 10/07/17 06/06/20 1 Day Ago History ~06/05/20 Levothyroxine [Synthroid] 25 mcg PO QAM 10/07/17 06/06/20 1 Day Ago History ~06/05/20 Pravastatin [Pravachol] 40 mg PO QHS 10/07/17 06/06/20 1 Day Ago History ~06/05/20 amLODIPine 2.5 mg PO DAILY 10/07/17 06/06/20 1 Day Ago History ~06/05/20 Doxycycline Hyclate [Doxycycline 100 mg PO Q12HR 03/14/19 06/06/20 1 Day Ago History Hyclate TAB] ~06/05/20 armodafiniL [Armodafinil] 250 mg PO QAM 03/14/19 06/06/20 1 Day Ago History ~06/05/20 Melatonin [Melatonin 5MG CAP] 5 mg PO DAILY 06/06/20 06/06/20 1 Day Ago History ~06/05/20 Methylphenidate [Ritalin] 20 mg PO BID 06/06/20 06/06/20 1 Day Ago History ~06/05/20 Mirabegron [Myrbetriq] 50 mg PO QDAY 06/06/20 06/06/20 1 Day Ago History ~06/05/20 ED Physical Exam - General Limitations: Other (Down syndrome) General appearance: other (Facies/calvarium consistent with Down syndrome) - Head Head exam: Present: atraumatic - Eye Eye exam: Present: normal appearance. Absent: scleral icterus - ENT ENT exam: Present: normal orophraynx - Neck Neck exam: Present: normal inspection. Absent: tenderness, meningismus - Respiratory Respiratory exam: Present: normal lung sounds bilaterally. Absent: respiratory distress - Cardiovascular Cardiovascular Exam: Present: regular rate, normal rhythm. Absent: systolic murmur, diastolic murmur, rubs, gallop - GI/Abdominal GI/Abdominal exam: Present: soft, normal bowel sounds. Absent: distended, tenderness, guarding, rebound, rigid - Extremities Exam Extremities exam: Present: normal inspection. Absent: calf tenderness - Back Exam Back exam: Present: normal inspection - Neurological Exam Neurological exam: Present: alert, CN II-XII intact (As testable). Absent: motor sensory deficit - Psychiatric Psychiatric exam: Present: normal mood, flat affect - Skin Skin exam: Present: warm, dry, intact, normal color. Absent: rash ED Course Vital Signs 06/06/20 06/06/20 06/06/20 07:46 08:02 11:19 Temperature 96 F L Pulse Rate 55 L 87 Respiratory 22 17 Rate Blood Pressure 123/58 [Right] O2 Sat by Pulse 96 95 Oximetry 06/06/20 14:21 Temperature Pulse Rate 74 Respiratory 16 Rate Blood Pressure 118/56 [Right] O2 Sat by Pulse Oximetry - Reevaluation(s) Reevaluation #1: Other than an episode of hyperventilation during blood gas assay, the patient showed no indication of respiratory difficulty. He was observed for quite some time on cardiac monitoring. He displayed no apparent dysrhythmia. The patient is poorly cooperative with medical intervention secondary to his pre -existing conditions. His medical screening is complete and adequate for the occasion. I do not think it would be to his benefit to subject him to further testing or hospitalization at this point for recurrent episodes such as today. Certainly his differential diagnosis may include seizures... Interestingly, he had acute respiratory alkalosis. Hyperventilatory syncope might be a possibility. I am going to refer him to primary care and a neurologist. 06/06/20 14:33 06/06/20 14:36 ED Medical Decision Making - Lab Data Result diagrams: 06/06/20 09:02 06/06/20 09:02 Laboratory Results - last 24 hr 06/06/20 06/06/20 06/06/20 09:02 09:02 09:02 WBC 5.1 RBC 4.77 Hgb 16.6 H Hct 49.1 H MCV 103 H MCH 35 H MCHC 34 RDW 14.4 Plt Count 172 Lymph % (Auto) 14.8 Baker % (Auto) 11.0 H Eos % (Auto) 0.5 Baso % (Auto) 0.7 Lymph # (Auto) 0.8 L Baker # (Auto) 0.6 Eos # (Auto) 0.0 Baso # (Auto) 0.0 Seg Neutrophils % 73.0 H Seg Neutrophils # 3.7 ABG pH POC ABG pCO2 POC ABG pO2 POC ABG HCO3 POC ABG Base Excess ABG Sodium ABG Potassium ABG Chloride FiO2 Sodium 138 Potassium 4.4 Chloride 101.5 Carbon Dioxide 30 Anion Gap 11 BUN 15 Creatinine 1.1 Estimated GFR > 60 BUN/Creatinine Ratio 14 Glucose 94 Calcium 9.0 Magnesium 2.00 Total Bilirubin 0.80 Direct Bilirubin < 0.2 AST 24 ALT 20 Alkaline Phosphatase 84 Total Creatine Kinase 163 CK-MB (CK-2) 4.3 H CK-MB (CK-2) Rel Index 2.6 Troponin T < 0.010 Total Protein 7.6 Albumin 3.5 L Albumin/Globulin Ratio 0.9 Arterial Blood Ionized Calcium 06/06/20 10:07 WBC RBC Hgb Hct MCV MCH MCHC RDW Plt Count Lymph % (Auto) Baker % (Auto) Eos % (Auto) Baso % (Auto) Lymph # (Auto) Baker # (Auto) Eos # (Auto) Baso # (Auto) Seg Neutrophils % Seg Neutrophils # ABG pH 7.703 H POC ABG pCO2 12.0 L POC ABG pO2 201.2 H POC ABG HCO3 14.6 POC ABG Base Excess -1.1 ABG Sodium 134.1 L ABG Potassium 4.5 ABG Chloride 115.0 H FiO2 21.0 Sodium Potassium Chloride Carbon Dioxide Anion Gap BUN Creatinine Estimated GFR BUN/Creatinine Ratio Glucose Calcium Magnesium Total Bilirubin Direct Bilirubin AST ALT Alkaline Phosphatase Total Creatine Kinase CK-MB (CK-2) CK-MB (CK-2) Rel Index Troponin T Total Protein Albumin Albumin/Globulin Ratio Arterial Blood Ionized Calcium 4.3 L - EKG Data -: EKG Interpreted by Me EKG shows normal: sinus rhythm, axis, intervals, QRS complexes, ST-T waves Rate: normal - EKG Data Interpretation: normal EKG - Radiology Data Radiology results: image reviewed (Chest x-ray no acute process) Critical care attestation.: If time is entered above; I have spent that time in minutes in the direct care of this critically ill patient, excluding procedure time. ED Disposition Clinical Impression: Down syndrome Syncope Qualifiers: Syncope type: unspecified Qualified Code(s): R55 - Syncope and collapse Disposition: DC- TO HOME OR SELFCARE Is pt being admited?: No Does the pt Need Aspirin: No Condition: Stable Instructions: Syncope, Syncope (ED) Additional Instructions: Return to the emergency department any acute change or problem. Follow-up with your primary care provider. I will also recommend work-up with a neurologist such as Dr. Jones. Referrals: MARCO ANTONIO DOMINGUEZ MD [Primary Care Provider] - 3-5 Days ALLA JONES MD [Referring] - 2-3 Days Time of Disposition: 14:15
== END 2020-06-06 14:21 | disposition home or self-care (01) ==
LOC: ED 07:45
DX: R55 Syncope and collapse (principal); Q90.9 Down syndrome, unspecified; Z79.899 Other long term (current) drug therapy; Z88.6 Allergy status to analgesic agent
CPT/HCPCS: 36415; 71045; 80048; 80076; 82550; 82553; 82805; 83735; 84484; 85025; 93005

== ENCOUNTER 2022-01-29 08:04 | Inpatient (IN) | payer MEDICARE ==
[2022-01-29] MEDS ORDERED: LORazepam 2 MG/ML VIAL ONE (11:38)
[2022-01-29] MEDS ORDERED: LORazepam 2 MG/ML VIAL IV ONE (11:41)
[2022-01-29 11:47] LABS: Hematocrit 44.3 % (35.5-45.6); Hemoglobin 14.6 gm/dl (11.8-15.2); Mean Corpuscular HGB Conc 33 % (32-34); Mean Corpuscular Volume 102 fl (84-94); Platelet Count 217 K/mm3 (140-440); Red Blood Count 4.35 M/mm3 (3.65-5.03); Red Cell Distribution Width 14.9 % (13.2-15.2)
[2022-01-29 12:21] LABS: Alanine Aminotransferase 13 units/L (7-56); BUN/Creatinine Ratio 16; Blood Urea Nitrogen 14 mg/dL (9-20); Calcium 8.8 mg/dL (8.4-10.2); Hemolysis Index 31
--- NOTE | 2022-01-29 13:22 | Emergency Department Report ---
ED General Adult HPI - General Chief complaint: Wound/Laceration Stated complaint: LIP INJURY/FALL PUI?: No Time Seen by Provider: 01/29/22 10:26 Source: RN/MD, EMS Mode of arrival: Stretcher Limitations: Other - History of Present Illness Initial comments: Information was obtained from the nurse. According to the nurse patient was brought initially to the [facility] area for lip laceration after patient sustained a fall out of his bed this morning. Patient have history of mental retardation and also Down Syndrome. However while in the [facility] area patient had a episode of seizure; no seizure history. Patient was given 2 mg Ativan and was performed at [facility] to the main emergency room. At the time my evaluation at 1:15 PM patient is asleep. I have asked the nurse if the CT scan was done and according to nursing has not been done yet. I have informed the nurse to get the CT done soon as possible to rule out intracranial process. Severity scale (0 -10): 0 - Related Data Home Medications Medication Instructions Recorded Confirmed Last Taken Calcium Carbonate/Vitamin D3 1 each PO QAM 10/07/17 06/06/20 1 Day Ago [Calcium 600-Vit D3 200 Tablet] ~06/05/20 Docusate Sodium [Stool Softener] 100 mg PO DAILY 10/07/17 06/06/20 1 Day Ago ~06/05/20 Levothyroxine [Synthroid] 25 mcg PO QAM 10/07/17 06/06/20 1 Day Ago ~06/05/20 Pravastatin [Pravachol] 40 mg PO QHS 10/07/17 06/06/20 1 Day Ago ~06/05/20 amLODIPine 2.5 mg PO DAILY 10/07/17 06/06/20 1 Day Ago ~06/05/20 Doxycycline Hyclate [Doxycycline 100 mg PO Q12HR 03/14/19 06/06/20 1 Day Ago Hyclate TAB] ~06/05/20 armodafiniL [Armodafinil] 250 mg PO QAM 03/14/19 06/06/20 1 Day Ago ~06/05/20 Melatonin [Melatonin 5MG CAP] 5 mg PO DAILY 06/06/20 06/06/20 1 Day Ago ~06/05/20 Methylphenidate [Ritalin] 20 mg PO BID 06/06/20 06/06/20 1 Day Ago ~06/05/20 Mirabegron [Myrbetriq] 50 mg PO QDAY 06/06/20 06/06/20 1 Day Ago ~06/05/20 Allergies Allergy/AdvReac Type Severity Reaction Status Date / Time codeine Allergy Unknown Verified 01/29/22 08:16 ED Review of Systems ROS: Stated complaint: LIP INJURY/FALL Other details as noted in HPI Comment: Unobtainable due to pts medical conditions ED Past Medical Hx - Past Medical History Previous Medical History?: Yes Hx Hypertension: Yes Hx Seizures: Yes Additional medical history: MR,DOWN SYNDROME, Hyperlipidemia, Partially blind, syncope - Surgical History Additional Surgical History: UNABLE TO GET B/P IN TRAIGE OR EKG IN TRIAGE - Social History Smoking Status: Unknown if ever smoked - Medications Home Medications: Home Medications Medication Instructions Recorded Confirmed Last Taken Type Calcium Carbonate/Vitamin D3 1 each PO QAM 10/07/17 06/06/20 1 Day Ago History [Calcium 600-Vit D3 200 Tablet] ~06/05/20 Docusate Sodium [Stool Softener] 100 mg PO DAILY 10/07/17 06/06/20 1 Day Ago History ~06/05/20 Levothyroxine [Synthroid] 25 mcg PO QAM 10/07/17 06/06/20 1 Day Ago History ~06/05/20 Pravastatin [Pravachol] 40 mg PO QHS 10/07/17 06/06/20 1 Day Ago History ~06/05/20 amLODIPine 2.5 mg PO DAILY 10/07/17 06/06/20 1 Day Ago History ~06/05/20 Doxycycline Hyclate [Doxycycline 100 mg PO Q12HR 03/14/19 06/06/20 1 Day Ago History Hyclate TAB] ~06/05/20 armodafiniL [Armodafinil] 250 mg PO QAM 03/14/19 06/06/20 1 Day Ago History ~06/05/20 Melatonin [Melatonin 5MG CAP] 5 mg PO DAILY 06/06/20 06/06/20 1 Day Ago History ~06/05/20 Methylphenidate [Ritalin] 20 mg PO BID 06/06/20 06/06/20 1 Day Ago History ~06/05/20 Mirabegron [Myrbetriq] 50 mg PO QDAY 06/06/20 06/06/20 1 Day Ago History ~06/05/20 ED Physical Exam - General Limitations: Other (ASLEEP.) - Head Head exam: Present: atraumatic, normocephalic - Eye Eye exam: Present: normal appearance, PERRL Pupils: Present: normal accommodation - ENT ENT exam: Present: normal exam, mucous membranes dry, other (I DON'T APPREICATE ANY LIP LACERATION BUT LEFT UPPER LIP IS SWOLLEN) - Neck Neck exam: Present: normal inspection, full ROM - Respiratory Respiratory exam: Present: normal lung sounds bilaterally - Cardiovascular Cardiovascular Exam: Present: regular rate, normal rhythm, normal heart sounds - GI/Abdominal GI/Abdominal exam: Present: soft - Neurological Exam Neurological exam: Present: other (ASLEEP) - Skin Skin exam: Present: normal color ED Course Vital Signs 01/29/22 01/29/22 01/29/22 08:12 11:56 12:09 Temperature 97.4 F L Pulse Rate 88 82 Respiratory 16 20 6 L Rate Blood Pressure Blood Pressure 110/76 117/62 [Left] O2 Sat by Pulse 98 100 Oximetry 01/29/22 01/29/22 01/29/22 12:16 12:18 12:30 Temperature 97.8 F Pulse Rate 75 73 72 Respiratory 8 L 8 L 7 L Rate Blood Pressure 119/63 119/63 119/63 Blood Pressure [Left] O2 Sat by Pulse 100 100 Oximetry 01/29/22 01/29/22 01/29/22 12:46 13:00 13:16 Temperature Pulse Rate 71 71 69 Respiratory 7 L 8 L 7 L Rate Blood Pressure 116/50 106/60 114/50 Blood Pressure [Left] O2 Sat by Pulse 100 100 Oximetry 01/29/22 01/29/22 01/29/22 13:30 13:45 14:00 Temperature Pulse Rate 67 67 66 Respiratory 8 L 8 L 6 L Rate Blood Pressure 123/49 118/52 106/60 Blood Pressure [Left] O2 Sat by Pulse 100 100 100 Oximetry 01/29/22 01/29/22 01/29/22 14:16 14:30 14:46 Temperature Pulse Rate 66 67 66 Respiratory 7 L 7 L 7 L Rate Blood Pressure 114/49 114/49 118/51 Blood Pressure [Left] O2 Sat by Pulse 98 100 93 Oximetry 01/29/22 01/29/22 01/29/22 15:00 15:16 15:30 Temperature Pulse Rate 66 63 64 Respiratory 7 L 8 L 7 L Rate Blood Pressure 118/51 119/63 119/63 Blood Pressure [Left] O2 Sat by Pulse 100 100 100 Oximetry 01/29/22 01/29/22 01/29/22 15:46 16:00 16:16 Temperature Pulse Rate 64 62 67 Respiratory 7 L 9 L 8 L Rate Blood Pressure 132/59 132/59 125/58 Blood Pressure [Left] O2 Sat by Pulse 100 100 100 Oximetry 01/29/22 01/29/22 01/29/22 16:30 16:46 17:00 Temperature Pulse Rate 65 65 63 Respiratory 8 L 8 L 8 L Rate Blood Pressure 125/58 117/63 117/63 Blood Pressure [Left] O2 Sat by Pulse 98 97 100 Oximetry 01/29/22 01/29/22 01/29/22 17:16 17:30 17:46 Temperature Pulse Rate 62 60 64 Respiratory 7 L 7 L 6 L Rate Blood Pressure 129/62 129/62 116/63 Blood Pressure [Left] O2 Sat by Pulse 99 100 94 Oximetry 01/29/22 01/29/22 01/29/22 18:00 18:16 18:30 Temperature Pulse Rate 65 64 63 Respiratory 7 L 7 L 11 L Rate Blood Pressure 116/63 116/62 114/57 Blood Pressure [Left] O2 Sat by Pulse 100 100 Oximetry - Reevaluation(s) Reevaluation #1: 01/29/22 15:46 I have spoken to patient's assistant professor of forestry from the retirement. According to the assistant professor of forestry patient has a known history of seizure and is on Keppra. Around 6:00 in the morning the assistant professor of forestry noticed the patient fell and most likely had a sei zure and sustained a fall with lip laceration. According to the assistant professor of forestry patient is a nonverbal due to mental retardation and also Down syndrome. Patient does not have a medical power of state attorney according to the assistant professor of forestry. 01/29/22 18:00 CT SCAN WITH NO ACUTE FINDING: PER DR. GARCIA - Consultations Consultation #1: 01/29/22 19:[address] Olmos who kindly accepted the patient. ED Medical Decision Making - Lab Data Result diagrams: 01/29/22 11:33 01/29/22 11:33 Critical care attestation.: If time is entered above; I have spent that time in minutes in the direct care of this critically ill patient, excluding procedure time. ED Disposition Clinical Impression: Seizure, Normal pressure hydrocephalus syndrome Disposition: ADMITTED INPATIENT Is pt being admited?: No Does the pt Need Aspirin: No Condition: Stable Referrals: MAURICIO BOCANEGRA MD [Primary Care Provider] - 3-5 Days Time of Disposition: 19:56
[2022-01-29] MEDS ORDERED: levETIRAcetam 1000 MG/NS 0.75% 1,000 MG/100 ML BAG IV ONE (15:32)
--- NOTE | 2022-01-29 18:04 | XRay Report ---
CHEST 1 VIEW 01/29/2022 4:44 PM INDICATION / CLINICAL INFORMATION: AMS. COMPARISON: June 06, 2020 FINDINGS: SUPPORT DEVICES: None. HEART / MEDIASTINUM: No significant abnormality. LUNGS / PLEURA: No significant pulmonary or pleural abnormality. No pneumothorax. ADDITIONAL FINDINGS: No significant additional findings. IMPRESSION: 1. No acute findings. Signer Name: Orion Horner DO Signed: 01/29/2022 5:56 PM Workstation Name: [id number]
--- NOTE | 2022-01-29 20:15 | Cat Scan Report ---
CT HEAD WITHOUT CONTRAST INDICATION / CLINICAL INFORMATION: seizure. TECHNIQUE: All CT scans at this location are performed using CT dose reduction for ALARA by means of automated e xposure control. COMPARISON: Head CT 10/07/2017 FINDINGS: HEMORRHAGE: No evidence of intracranial hemorrhage or extra-axial fluid collection. EXTRA-AXIAL SPACES: Cortical sulci and sylvian fissures within normal limits for the patient's age 61 years. Basilar cisterns have an unremarkable appearance. VENTRICULAR SYSTEM: The third and lateral ventricles are markedly enlarged out of proportion to the c ortical sulci. This probably reflects the presence of central greater than cortical atrophy. This has progressed in comparison to prior study. Callosal angle is obtuse. Hydrocephalus is considered unlik gaye. CEREBRAL PARENCHYMA: Periventricular and deep white matter lucency is observed. This is probably seco ndary to microvascular ischemic change. There is no indication of recent infarction. There is an area of encephalomalacia involving the right parietal lobe secondary to remote right MCA infarction which has developed since previous study 10/07/2017. There is evidence of remote small deep infarction in t he right gangliocapsular region which is new since prior study. MIDLINE SHIFT OR HERNIATION: There is no mass effect. CEREBELLUM / BRAINSTEM: Brainstem and cerebellum have an unremarkable appearance. MIDLINE STRUCTURES:No abnormalities of the pituitary gland or pineal region are observed INTRACRANIAL VESSELS: No definite abnormality on noncontrast head CT examination. CRANIOCERVICAL JUNCTION:No abnormality ORBITS: visualized portions of the orbits have an unremarkable appearance. SOFT TISSUES of HEAD: No significant abnormality. CALVARIUM: Evaluation of bone windows reveals no abnormalities. PARANASAL SINUSES / MASTOID AIR CELLS: Frontal sinuses did not develop in this individual. Paranasal sinuses are free from inflammatory mucosal disease. Mastoid air cells are normally pneumatized. IMPRESSION: 1. Marked central greater than cortical atrophy. This has progressed since 10/07/2017. 2. Interval since prior study 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. Additionally noted is evidence of interval development of remote small deep infarction in a right ganglia capsular distribution. 3. No acute intracranial abnormalities are identified. Signer Name: Chino Diaz MD Signed: 01/29/2022 8:11 PM Workstation Name: [id number]
--- NOTE | 2022-01-29 21:11 | History and Physical Report ---
History of Present Illness Date of examination: 01/29/22 Date of admission: '01/29/2022 Chief complaint: Decreased responsiveness after seizures History of present illness: 51-year-old male who is a senior care residence that Down syndrome and mild mental retardation came to the ER for lip laceration after a fall from his bed this morning. Patient was given Ativan and the lip laceration was repaired. Patient had seizures in the emergency room and patient was lethargic and postictal because of which patient is being admitted. No fever or chills. - Past Medical History --Previous Medical History?: Yes --Hypertension: Yes --Seizures: Yes --Additional medical history: MR,DOWN SYNDROME, Hyperlipidemia, Partially blind, syncope - Surgical History --Additional Surgical History: UNABLE TO GET B/P IN TRAIGE OR EKG IN TRIAGE - Social History --Smoking Status: Unknown if ever smoked - Medications --Home Medications: Home Medications Medication Instructions Recorded Confirmed Last Taken Type Calcium Carbonate/Vitamin D3 1 each PO QAM 10/07/17 06/06/20 1 Day Ago History [Calcium 600-Vit D3 200 Tablet] ~06/05/20 Docusate Sodium [Stool Softener] 100 mg PO DAILY 10/07/17 06/06/20 1 Day Ago History ~06/05/20 Levothyroxine [Synthroid] 25 mcg PO QAM 10/07/17 06/06/20 1 Day Ago History ~06/05/20 Pravastatin [Pravachol] 40 mg PO QHS 10/07/17 06/06/20 1 Day Ago History ~06/05/20 amLODIPine 2.5 mg PO DAILY 10/07/17 06/06/20 1 Day Ago History ~06/05/20 Doxycycline Hyclate [Doxycycline 100 mg PO Q12HR 03/14/19 06/06/20 1 Day Ago History Hyclate TAB] ~06/05/20 armodafiniL [Armodafinil] 250 mg PO QAM 03/14/19 06/06/20 1 Day Ago History ~06/05/20 Melatonin [Melatonin 5MG CAP] 5 mg PO DAILY 06/06/20 06/06/20 1 Day Ago History ~06/05/20 Methylphenidate [Ritalin] 20 mg PO BID 06/06/20 06/06/20 1 Day Ago History ~06/05/20 Mirabegron [Myrbetriq] 50 mg PO QDAY 06/06/20 06/06/20 1 Day Ago History ~06/05/20 Review of Systems ROS: Stated complaint: LIP INJURY/FALL Other details as noted in HPI Comment: Unobtainable due to pts medical conditions Medications and Allergies Allergies Allergy/AdvReac Type Severity Reaction Status Date / Time codeine Allergy Unknown Verified 01/29/22 08:16 Home Medications Medication Instructions Recorded Confirmed Last Taken Type Calcium Carbonate/Vitamin D3 1 each PO QAM 10/07/17 06/06/20 1 Day Ago History [Calcium 600-Vit D3 200 Tablet] ~06/05/20 Docusate Sodium [Stool Softener] 100 mg PO DAILY 10/07/17 06/06/20 1 Day Ago History ~06/05/20 Levothyroxine [Synthroid] 25 mcg PO QAM 10/07/17 06/06/20 1 Day Ago History ~06/05/20 Pravastatin [Pravachol] 40 mg PO QHS 10/07/17 06/06/20 1 Day Ago History ~06/05/20 amLODIPine 2.5 mg PO DAILY 10/07/17 06/06/20 1 Day Ago History ~06/05/20 Doxycycline Hyclate [Doxycycline 100 mg PO Q12HR 03/14/19 06/06/20 1 Day Ago History Hyclate TAB] ~06/05/20 armodafiniL [Armodafinil] 250 mg PO QAM 03/14/19 06/06/20 1 Day Ago History ~06/05/20 Melatonin [Melatonin 5MG CAP] 5 mg PO DAILY 06/06/20 06/06/20 1 Day Ago History ~06/05/20 Methylphenidate [Ritalin] 20 mg PO BID 06/06/20 06/06/20 1 Day Ago History ~06/05/20 Mirabegron [Myrbetriq] 50 mg PO QDAY 06/06/20 06/06/20 1 Day Ago History ~06/05/20 Exam - Constitutional Vitals: Temp Pulse Resp BP Pulse Ox 97.8 F 63 11 L 114/57 100 01/29/22 12:18 01/29/22 18:30 01/29/22 18:30 01/29/22 18:30 01/29/22 18:30 General appearance: Present: no acute distress, well-nourished - EENT Eyes: Present: PERRL ENT: hearing intact, clear oral mucosa, other (Lip laceration which was repai red) - Neck Neck: Present: supple, normal ROM - Respiratory Respiratory effort: normal Respiratory: bilateral: CTA - Cardiovascular Heart rate: 78 Rhythm: regular Heart Sounds: Present: S1 & S2. Absent: rub, click - Extremities Extremities: no ischemia, pulses intact, pulses symmetrical, No edema Peripheral Pulses: within normal limits - Abdominal General gastrointestinal: Present: soft, non-tender, non-distended, normal bowel sounds Male genitourinary: Present: normal - Integumentary Integumentary: Present: clear, warm, dry - Musculoskeletal Musculoskeletal: gait normal, strength equal bilaterally - Psychiatric Psychiatric: other (Lethargic and decreased responsiveness) - Neurologic Neurologic: CNII-XII intact, moves all extremities, other (Lethargic) Results - Labs CBC & Chem 7: 01/29/22 11:33 01/29/22 11:33 Labs: Laboratory Last Values WBC 6.5 K/mm3 (4.5-11.0) 01/29/22 11:33 RBC 4.35 M/mm3 (3.65-5.03) 01/29/22 11:33 Hgb 14.6 gm/dl (11.8-15.2) 01/29/22 11:33 Hct 44.3 % (35.5-45.6) 01/29/22 11:33 MCV 102 fl (84-94) H 01/29/22 11:33 MCH 33 pg (28-32) H 01/29/22 11:33 MCHC 33 % (32-34) 01/29/22 11:33 RDW 14.9 % (13.2-15.2) 01/29/22 11:33 Plt Count 217 K/mm3 (140-440) 01/29/22 11:33 Sodium 142 mmol/L (137-145) 01/29/22 11:33 Potassium 4.0 mmol/L (3.6-5.0) 01/29/22 11:33 Chloride 105.4 mmol/L (98-107) 01/29/22 11:33 Carbon Dioxide 26 mmol/L (22-30) 01/29/22 11:33 Anion Gap 15 mmol/L 01/29/22 11:33 BUN 14 mg/dL (9-20) 01/29/22 11:33 Creatinine 0.9 mg/dL (0.8-1.3) 01/29/22 11:33 Estimated GFR > 60 ml/min 01/29/22 11:33 BUN/Creatinine Ratio 16 % 01/29/22 11:33 Glucose 91 mg/dL (75-100) 01/29/22 11:33 Calcium 8.8 mg/dL (8.4-10.2) 01/29/22 11:33 Total Bilirubin 0.40 mg/dL (0.1-1.2) 01/29/22 11:33 AST 22 units/L (5-40) 01/29/22 11:33 ALT 13 units/L (7-56) 01/29/22 11:33 Alkaline Phosphatase 78 units/L (35-129) 01/29/22 11:33 Total Protein 7.2 g/dL (6.3-8.2) 01/29/22 11:33 Albumin 3.0 g/dL (3.9-5) L 01/29/22 11:33 Albumin/Globulin Ratio 0.7 % 01/29/22 11:33 - Imaging and Cardiology Imaging and Cardiology: CT head Mild central greater than cortical atrophy. This has progressed since 2017. Interval since prior study titration study where he sustained a right MCA infarction which is remote No acute intracranial abnormalities Chest x-ray No acute findings Assessment and Plan Advance Directives: Yes (Full code) VTE prophylaxis?: Chemical Plan of care discussed with patient/family: Yes - Patient Problems (1) Acute encephalopathy Current Visit: Yes Status: Acute Plan to address problem: Secondary to seizures Patient is postictal IV Keppra Neurology consult (2) Seizure disorder Current Visit: Yes Status: Acute Plan to address problem: Continue IV Keppra and IV fluids (3) Hypothyroidism Current Visit: Yes Status: Chronic Qualifiers: Hypothyroidism type: acquired Qualified Code(s): E03.9 - Hypothyroidism, unspecified Plan to address problem: Continue Synthroid (4) Hypertension Current Visit: Yes Status: Acute Plan to address problem: Continue antihypertensives (5) Hyperlipidemia Current Visit: Yes Status: Chronic Qualifiers: Hyperlipidemia type: mixed hyperlipidemia Qualified Code(s): E78.2 - Mixed hyperlipidemia Plan to address problem: Continue statins (6) Overactive bladder Current Visit: Yes Status: Chronic Plan to address problem: Continue Myrbetriq (7) Narcolepsy Current Visit: Yes Status: Chronic Qualifiers: Narcolepsy type: due to underlying condition without cataplexy Qualified Code(s): G47.429 - Narcolepsy in conditions classified elsewhere without cataplexy Plan to address problem: On Armodafonil (8) DVT prophylaxis Current Visit: Yes Status: Acute Plan to address problem: On heparin and GI prophylaxis (9) Normal pressure hydrocephalus Current Visit: Yes Status: Chronic Plan to address problem: Needs follow-up with neurology and neurosurgery as outpatient (10) Advance care planning Current Visit: Yes Status: Acute Plan to address problem: Could not be done because of the patient's lethargic condition (11) Discharge planning issues Current Visit: Yes Status: Acute Plan to address problem: Patient may be discharged tomorrow if patient is at baseline level of consciousness back to senior care
[2022-01-29] MEDS ORDERED: ONDANSETRON 4 MG/2 ML INJ IV PRN (21:14)
[2022-01-29] MEDS ORDERED: ACETAMINOPHEN 325 MG TAB PO PRN (21:14)
[2022-01-29] MEDS ORDERED: MORPHINE 2 MG/1 ML INJ IV PRN (21:14)
[2022-01-29] MEDS ORDERED: NON-FORMULARY EACH (Mirabegron [Myrbetriq] 50 MG Tab.Er.24h) PO SCH (21:15)
[2022-01-29] MEDS: amLODIPine 5 MG TAB PO SCH (22:15)
[2022-01-29] MEDS: MELATONIN 5 MG TAB PO SCH (22:15)
[2022-01-29] MEDS: FAMOTIDINE 20 MG/2 ML INJ IV SCH (22:30)
[2022-01-29] MEDS: HEPARIN 5,000 UNIT/1 ML VIAL SUB-Q SCH (22:30)
[2022-01-29] MEDS: METHYLPHENIDATE 5 MG TAB PO SCH (22:30)
[2022-01-29] MEDS: levETIRAcetam 750 MG in DEXTROSE 5% IN WATER 100 ML IV SCH (22:40)
[2022-01-29] MEDS: SODIUM CHLORIDE 0.9% 1000 ML 1,000 ML IV SCH (23:08)
[2022-01-29] MEDS ORDERED: LORazepam 2 MG/ML VIAL IV PRN (23:25)
[2022-01-30] MEDS: PRAVASTATIN 40 MG TAB PO SCH ×2 (00:18→21:58)
[2022-01-30 07:59] LABS: Hemoglobin 14.1 gm/dl (11.8-15.2); Mean Corpuscular HGB Conc 33 % (32-34); Mean Corpuscular Volume 102 fl (84-94); Platelet Count 189 K/mm3 (140-440); Red Blood Count 4.21 M/mm3 (3.65-5.03); Red Cell Distribution Width 15.2 % (13.2-15.2)
[2022-01-30 08:21] LABS: Alanine Aminotransferase 12 units/L (7-56); Albumin 2.4 g/dL (3.9-5); Blood Urea Nitrogen 11 mg/dL (9-20); Calcium 8.5 mg/dL (8.4-10.2); Hemolysis Index 4
[2022-01-30 08:23] LABS: BUN/Creatinine Ratio 18
--- NOTE | 2022-01-30 08:59 | Progress Note ---
Assessment and Plan Assessment and plan: Advance Directives: Yes (Full code) VTE prophylaxis?: Chemical Plan of care discussed with patient/family: Yes - Patient Problems (1) Acute encephalopathy Secondary to seizures Patient is postictal IV Keppra Neurology consult --History of Down syndrome (2) Seizure disorder Continue IV Keppra and IV fluids Seizure precautions Continue antiplatelet medications Do not drive until cleared by the neurology or primary care physician (3) Hypothyroidism Continue Synthroid Supportive care (4) Hypertension Continue antihypertensives As needed hydralazine Closely monitor (5) Hyperlipidemia Continue statins Low-cholesterol diet (6) Overactive bladder Continue Myrbetriq Supportive care (7) Narcolepsy On Armodafonil Supportive care (8) DVT prophylaxis On heparin and GI prophylaxis (9) Normal pressure hydrocephalus Needs follow-up with neurology and neurosurgery as outpatient (10) Advance care planning Could not be done because of the patient's lethargic condition (11) Discharge planning issues Patient may be discharged tomorrow if patient is at baseline level of consciousness back to longterm PT OT evaluation Follow neurology evaluation recommendations Plan of care reviewed with the patient and his nurse Neurology evaluation noted and appreciated History Interval history: Seen and examined the patient at the bedside patient's chart and medications reviewed patient was admitted with seizureS No new events of seizure noted Vital signs reviewed Hospitalist Physical - Constitutional Vitals: Temp Pulse Resp BP Pulse Ox 97.2 F L 52 L 18 114/49 100 01/30/22 05:36 01/30/22 05:36 01/30/22 05:36 01/30/22 05:36 01/30/22 08:21 General appearance: Present: no acute distress, well-nourished - EENT Eyes: Present: PERRL, EOM intact - Neck Neck: Present: supple, normal ROM - Respiratory Respiratory effort: normal Respiratory: bilateral: diminished, negative: rales, rhonchi, wheezing - Cardiovascular Rhythm: regular Heart Sounds: Present: S1 & S2 - Extremities Extremities: no ischemia, No edema - Abdominal General gastrointestinal: soft, non-tender, non-distended, normal bowel sounds - Integumentary Integumentary: Present: clear, warm - Psychiatric Psychiatric: appropriate mood/affect, cooperative - Neurologic Neurologic: CNII-XII intact, moves all extremities Results - Labs CBC & Chem 7: 01/30/22 06:29 01/30/22 06:29 Labs: Laboratory Last Values WBC 3.3 K/mm3 (4.5-11.0) L 01/30/22 06:29 RBC 4.21 M/mm3 (3.65-5.03) 01/30/22 06:29 Hgb 14.1 gm/dl (11.8-15.2) 01/30/22 06:29 Hct 43.0 % (35.5-45.6) 01/30/22 06:29 MCV 102 fl (84-94) H 01/30/22 06:29 MCH 34 pg (28-32) H 01/30/22 06:29 MCHC 33 % (32-34) 01/30/22 06:29 RDW 15.2 % (13.2-15.2) 01/30/22 06:29 Plt Count 189 K/mm3 (140-440) 01/30/22 06:29 [place] % (Auto) [employer]iance Manager 01/30/22 06:29 Sodium 143 mmol/L (137-145) 01/30/22 06:29 Potassium 3.8 mmol/L (3.6-5.0) 01/30/22 06:29 Chloride 110.5 mmol/L (98-107) H 01/30/22 06:29 Carbon Dioxide 25 mmol/L (22-30) 01/30/22 06:29 Anion Gap 11 mmol/L 01/30/22 06:29 BUN 11 mg/dL (9-20) 01/30/22 06:29 Creatinine 0.6 mg/dL (0.8-1.3) L 01/30/22 06:29 Estimated GFR > 60 ml/min 01/30/22 06:29 BUN/Creatinine Ratio 18 % 01/30/22 06:29 Glucose 84 mg/dL (75-100) 01/30/22 06:29 Calcium 8.5 mg/dL (8.4-10.2) 01/30/22 06:29 Total Bilirubin 0.40 mg/dL (0.1-1.2) 01/30/22 06:29 AST 19 units/L (5-40) 01/30/22 06:29 ALT 12 units/L (7-56) 01/30/22 06:29 Alkaline Phosphatase 70 units/L (35-129) 01/30/22 06:29 Total Protein 6.9 g/dL (6.3-8.2) 01/30/22 06:29 Albumin 2.4 g/dL (3.9-5) L 01/30/22 06:29 Albumin/Globulin Ratio 0.5 % 01/30/22 06:29 Horowitz/IV: Voiding Method Condom Catheter Active Medications - Current Medications Current Medications: Generic Name Dose Route Start Last Admin Trade Name Freq PRN Reason Stop Dose Admin Acetaminophen 650 mg 01/29/22 21:14 Acetaminophen 325 Mg Tab PO Q4H PRN Pain MILD(1-3)/Fever >100.5/[place] Amlodipine Besylate 2.5 mg 01/29/22 22:00 01/29/22 22:15 Amlodipine 5 Mg Tab PO 2.5 mg DAILY [facility] Administration Docusate Sodium 100 mg 01/30/22 10:00 Docusate Sodium 100 Mg Cap PO DAILY [facility] Famotidine 20 mg 01/29/22 22:00 01/29/22 22:30 Famotidine 20 Mg/2 Ml Inj IV 01/30/22 11:59 20 mg BID [facility]US Administration Famotidine 20 mg 01/30/22 22:00 Famotidine 20 Mg Tab PO BID [facility] Heparin Sodium (Porcine) 5,000 unit 01/29/22 22:00 01/29/22 22:30 Heparin 5,000 Unit/1 Ml Vial SUB-Q 5,000 unit Q12HR [facility] Administration Sodium Chloride 1,000 mls @ 75 mls/hr 01/29/22 21:15 01/29/22 23:08 Nacl 0.9% 1000 Ml IV 75 mls/hr DIRECT [facility] Administration Levetiracetam 750 mg/ Dextrose 107.5 mls @ 400 mls/hr 01/29/22 22:00 01/29/22 22:40 IV 400 mls/hr Q12HR [facility] Administration Levothyroxine Sodium 25 mcg 01/30/22 08:00 Levothyroxine 25 Mcg Tab PO DAILY@0600 [facility] Lorazepam 1 mg 01/29/22 23:25 01/29/22 23:35 Lorazepam 2 Mg/Ml Vial IV 1 mg Q4H PRN Administration Agitation Melatonin 5 mg 01/29/22 22:00 01/29/22 22:15 Melatonin 5 Mg Tab PO 5 mg QHS [facility] Administration Methylphenidate HCl 20 mg 01/29/22 22:00 01/29/22 22:30 Methylphenidate 5 Mg Tab PO 20 mg BID [facility] Administration Miscellaneous Medication 50 mg 01/29/22 21:15 01/30/22 00:03 Mirabegron [Myrbetriq] PO Not Given QDAY [facility] Miscellaneous Medication 250 mg 01/30/22 10:00 Armodafinil [Armodafinil] PO QAM [facility] Morphine Sulfate 2 mg 01/29/22 21:14 Morphine 2 Mg/1 Ml Inj IV Q4H PRN Pain, Moderate (4-6) Ondansetron HCl 4 mg 01/29/22 21:14 Ondansetron 4 Mg/2 Ml Inj IV Q8H PRN Nausea And Vomiting Pravastatin Sodium 40 mg 01/29/22 22:00 01/30/22 00:18 Pravastatin 40 Mg Tab PO Not Given QHS [facility] Sodium Chloride 10 ml 01/29/22 22:00 01/29/22 22:15 Sodium Chloride 0.9% 10 Ml Flush Syringe IV 10 ml BID [facility] Administration Sodium Chloride 10 ml 01/29/22 21:14 Sodium Chloride 0.9% 10 Ml Flush Syringe IV PRN PRN LINE FLUSH
[2022-01-30] MEDS: amLODIPine 5 MG TAB PO SCH (09:18)
[2022-01-30] MEDS: DOCUSATE SODIUM 100 MG CAP PO SCH (09:19)
[2022-01-30] MEDS: HEPARIN 5,000 UNIT/1 ML VIAL SUB-Q SCH ×2 (09:19→21:57)
[2022-01-30] MEDS: METHYLPHENIDATE 5 MG TAB PO SCH ×2 (09:19→21:57)
[2022-01-30] MEDS: LEVOTHYROXINE 25 MCG TAB PO SCH (09:22)
[2022-01-30] MEDS: FAMOTIDINE 20 MG/2 ML INJ IV SCH (09:22)
[2022-01-30] MEDS ORDERED: NON-FORMULARY EACH (Melatonin [Melatonin 5mg Cap] 5 MG Capsule) PO SCH (10:00)
[2022-01-30] MEDS ORDERED: ARMODAFINIL 250 MG PO SCH ×2 (10:00)
[2022-01-30] MEDS: levETIRAcetam 750 MG in DEXTROSE 5% IN WATER 100 ML IV SCH ×2 (10:24→21:57)
[2022-01-30 14:35] LABS: Basophils % (Manual) 0 % (0.0-1.8); Total Cells Counted 100
[2022-01-30 14:36] LABS: Platelet Estimate Consistent w Auto; RBC Morphology Normal
--- NOTE | 2022-01-30 14:47 | Consultation ---
History of Present Illness Consult date: 01/30/22 Reason for Consult: seizure Chief complaint: seizure History of present illness: 61 yo male with down syndrome, narcolepsy, hypothyroidism, partially blind, who presents s/p fall at his facility and then noted in the ED with seizure activity. Per notes, patient does not have a hx of seizure d/o. Currently, patient is encephalopathic and not answering any questions, let alone open his eyes. Per RN, who spoke to the caregiver, his baseline is that he does not speak or walk on his own. Past History Past Medical History: other (down's syndrome, narcolepsy, thyroid dx;) Past Surgical History: Other (unknown secondary to ams;) Social history: no significant social history Family history: other (unknown secondary to ams;) Medications and Allergies Allergies Allergy/AdvReac Type Severity Reaction Status Date / Time codeine Allergy Unknown Verified 01/29/22 08:16 Home Medications Medication Instructions Recorded Confirmed Last Taken Type Calcium Carbonate/Vitamin D3 1 each PO QAM 10/07/17 06/06/20 1 Day Ago History [Calcium 600-Vit D3 200 Tablet] ~06/05/20 Docusate Sodium [Stool Softener] 100 mg PO DAILY 10/07/17 06/06/20 1 Day Ago History ~06/05/20 Levothyroxine [Synthroid] 25 mcg PO QAM 10/07/17 06/06/20 1 Day Ago History ~06/05/20 Pravastatin [Pravachol] 40 mg PO QHS 10/07/17 06/06/20 1 Day Ago History ~06/05/20 amLODIPine 2.5 mg PO DAILY 10/07/17 06/06/20 1 Day Ago History ~06/05/20 Doxycycline Hyclate [Doxycycline 100 mg PO Q12HR 03/14/19 06/06/20 1 Day Ago History Hyclate TAB] ~06/05/20 armodafiniL [Armodafinil] 250 mg PO QAM 03/14/19 06/06/20 1 Day Ago History ~06/05/20 Melatonin [Melatonin 5MG CAP] 5 mg PO DAILY 06/06/20 06/06/20 1 Day Ago History ~06/05/20 Methylphenidate [Ritalin] 20 mg PO BID 06/06/20 06/06/20 1 Day Ago History ~06/05/20 Mirabegron [Myrbetriq] 50 mg PO QDAY 06/06/20 06/06/20 1 Day Ago History ~06/05/20 Active Meds: Active Medications Acetaminophen (Acetaminophen 325 Mg Tab) 650 mg PO Q4H PRN PRN Reason: Pain MILD(1-3)/Fever >100.5/[place] Amlodipine Besylate (Amlodipine 5 Mg Tab) 2.5 mg PO DAILY [facility] Last Admin: 01/30/22 09:18 Dose: 2.5 mg Docusate Sodium (Docusate Sodium 100 Mg Cap) 100 mg PO DAILY [facility] Last Admin: 01/30/22 09:19 Dose: 100 mg Famotidine (Famotidine 20 Mg Tab) 20 mg PO BID [facility] Heparin Sodium (Porcine) (Heparin 5,000 Unit/1 Ml Vial) 5,000 unit SUB-Q Q12HR [facility] Last Admin: 01/30/22 09:19 Dose: 5,000 unit Sodium Chloride (Nacl 0.9% 1000 Ml) 1,000 mls @ 75 mls/hr IV DIRECT [facility] Last Admin: 01/29/22 23:08 Dose: 75 mls/hr Levetiracetam 750 mg/ Dextrose 107.5 mls @ 400 mls/hr IV Q12HR [facility] Last Admin: 01/30/22 10:24 Dose: 400 mls/hr Levothyroxine Sodium (Levothyroxine 25 Mcg Tab) 25 mcg PO DAILY@0600 [facility] Last Admin: 01/30/22 09:22 Dose: 25 mcg Lorazepam (Lorazepam 2 Mg/Ml Vial) 1 mg IV Q4H PRN PRN Reason: Agitation Last Admin: 01/29/22 23:35 Dose: 1 mg Melatonin (Melatonin 5 Mg Tab) 5 mg PO QHS [facility] Last Admin: 01/29/22 22:15 Dose: 5 mg Methylphenidate HCl (Methylphenidate 5 Mg Tab) 20 mg PO BID [facility] Last Admin: 01/30/22 09:19 Dose: 20 mg Miscellaneous Medication (Mirabegron [Myrbetriq]) 50 mg PO QDAY [facility] Last Admin: 01/30/22 00:03 Dose: Not Given Miscellaneous Medication (Armodafinil [Armodafinil]) 250 mg PO QAM [facility] Morphine Sulfate (Morphine 2 Mg/1 Ml Inj) 2 mg IV Q4H PRN PRN Reason: Pain, Moderate (4-6) Ondansetron HCl (Ondansetron 4 Mg/2 Ml Inj) 4 mg IV Q8H PRN PRN Reason: Nausea And Vomiting Pravastatin Sodium (Pravastatin 40 Mg Tab) 40 mg PO QHS [facility] Last Admin: 01/30/22 00:18 Dose: Not Given Sodium Chloride (Sodium Chloride 0.9% 10 Ml Flush Syringe) 10 ml IV BID [facility] Last Admin: 01/30/22 09:19 Dose: 10 ml Sodium Chloride (Sodium Chloride 0.9% 10 Ml Flush Syringe) 10 ml IV PRN PRN PRN Reason: LINE FLUSH Review of Systems ROS unobtainable: due to mental status Physical Examination - Vital Signs Vital Signs: Vital Signs Pulse Resp BP Pulse Ox 88 16 110/76 98 01/29/22 08:12 01/29/22 08:12 01/29/22 08:12 01/29/22 08:12 - Physical Exam Narrative exam: Gen: nad; Head: normocephalic; Eyes: pt keeps eyes shut and will not open; ENT: no external mass appreciated; CVS: warm and well-perfused; Pulm: no respiratory distress; GI: appears non-distended; Ext: no cyanosis appreciated at distal extremities; Skin: no acute rash or hives appreciated at distal extremities; Heme: no pathologic ecchymosis appreciated at distal extremities; Neuro: stuporous, not following commands, CN 2 - pt is resisting eye opening, CN 3, 4, 6 - pt is resisting eye opening, CN 5/7 - intact; CN 9/10 - swallowing noted, CN 11/12 - pt cannot cooperate secondary to LOC; Motor/Sensory - at least 2-/5 at all exts to tactile stimuli; Cerebellar/Gait - pt cannot cooperate secondary to LOC; Results - Laboratory Findings CBC and BMP: 01/30/22 06:29 01/30/22 06:29 Abnormal Lab Findings: Abnormal Labs 01/29/22 01/29/22 01/30/22 11:33 11:33 06:29 WBC 3.3 L MCV 102 H 102 H MCH 33 H 34 H Monocytes % (Manual) 14.0 H Lymphocytes # (Manual) 0.8 L Chloride Creatinine Albumin 3.0 L 01/30/22 06:29 WBC MCV MCH Monocytes % (Manual) Lymphocytes # (Manual) Chloride 110.5 H Creatinine 0.6 L Albumin 2.4 L Assessment and Plan 61 yo male with down syndrome, narcolepsy, hypothyroidism, partially blind, who presents s/p fall at his facility and then noted in the ED with seizure activity. 1. Seizure d/o - keppra 500 mg iv/po bid; eeg pending; mri brain w/ wo contrast; r/o underling metabolic, toxic, infectious trigger per primary team. 2. Narcolepsy - reinitiate home regimen. 3. Thyroid disease - confirm tsh w/ t4 and correction per primary team. 4. Acute Encephalopathy - likely secondary to #1, workup per #1. 5. Seizure / Fall / Aspiration precautions. Mynor Vora MD Neurology [id number]
[2022-01-30] MEDS: SODIUM CHLORIDE 0.9% 1000 ML 1,000 ML IV SCH (17:04)
[2022-01-30 18:19] LABS: Bilirubin,Urine NEG (Negative); Blood,Urine NEG (Negative); Color,Urine Amber (Yellow); Urobilinogen,Urine < 2.0 mg/dL (<2.0)
[2022-01-30 18:29] LABS: Amphetamine Screen,Urine Negative; Bacteria,Urine 4+ /HPF (Negative); Benzodiazepines Screen,Urine Negative; Cannabinoid Screen,Urine Negative; Cocaine Screen,Urine Negative; Methadone Screen,Urine Negative; Mucus,Urine 2+ /HPF; Opiate Screen,Urine Negative
[2022-01-30] MEDS: MELATONIN 5 MG TAB PO SCH (21:58)
[2022-01-30] MEDS: FAMOTIDINE 20 MG TAB PO SCH (22:00)
[2022-01-31] MEDS: LEVOTHYROXINE 25 MCG TAB PO SCH (05:37)
[2022-01-31] MEDS: SODIUM CHLORIDE 0.9% 1000 ML 1,000 ML IV SCH (05:38)
[2022-01-31] MEDS: DOCUSATE SODIUM 100 MG CAP PO SCH (11:27)
[2022-01-31] MEDS: amLODIPine 5 MG TAB PO SCH (11:27)
[2022-01-31] MEDS: METHYLPHENIDATE 5 MG TAB PO SCH ×2 (11:27→23:48)
[2022-01-31] MEDS: FAMOTIDINE 20 MG TAB PO SCH ×2 (11:27→23:47)
[2022-01-31] MEDS: HEPARIN 5,000 UNIT/1 ML VIAL SUB-Q SCH ×2 (11:27→23:48)
[2022-01-31] MEDS: levETIRAcetam 750 MG in DEXTROSE 5% IN WATER 100 ML IV SCH (11:30)
--- NOTE | 2022-01-31 18:56 | Progress Note ---
Assessment and Plan Assessment and plan: Advance Directives: Yes (Full code) VTE prophylaxis?: Chemical Plan of care discussed with patient/family: Yes - Patient Problems (1) Acute encephalopathy Secondary to seizures Patient is postictal IV Keppra Neurology consult --History of Down syndrome (2) Seizure disorder Continue IV Keppra and IV fluids Seizure precautions Continue antiplatelet medications Do not drive until cleared by the neurology or primary care physician (3) Hypothyroidism Continue Synthroid Supportive care (4) Hypertension Continue antihypertensives As needed hydralazine Closely monitor (5) Hyperlipidemia Continue statins Low-cholesterol diet (6) Overactive bladder Continue Myrbetriq Supportive care (7) Narcolepsy On Armodafonil Supportive care (8) DVT prophylaxis On heparin and GI prophylaxis (9) Normal pressure hydrocephalus Needs follow-up with neurology and neurosurgery as outpatient (10) Advance care planning Could not be done because of the patient's lethargic condition (11) Discharge planning issues Patient may be discharged tomorrow if patient is at baseline level of consciousness back to half-way PT OT evaluation Follow neurology evaluation recommendations Plan of care reviewed with the patient and his nurse Neurology evaluation noted and appreciated History Interval history: I have seen and examined the patient at the bedside Patient's chart and medications reviewed Vital signs noted No new events reported by the nursing staff Hospitalist Physical - Constitutional Vitals: Temp Pulse Resp BP Pulse Ox 97.6 F 79 18 121/57 95 01/30/22 22:13 01/31/22 11:34 01/31/22 11:34 01/31/22 11:34 01/31/22 11:34 General appearance: Present: no acute distress, well-nourished - EENT Eyes: Present: PERRL, EOM intact - Neck Neck: Present: supple, normal ROM - Respiratory Respiratory effort: normal Respiratory: bilateral: diminished, negative: rales, rhonchi, wheezing - Cardiovascular Rhythm: regular Heart Sounds: Present: S1 & S2 - Extremities Extremities: no ischemia, No edema - Abdominal General gastrointestinal: soft, non-tender, non-distended, normal bowel sounds - Integumentary Integumentary: Present: clear, warm - Psychiatric Psychiatric: appropriate mood/affect, cooperative - Neurologic Neurologic: moves all extremities Results - Labs CBC & Chem 7: 01/30/22 06:29 01/30/22 06:29 Labs: Laboratory Last Values WBC 3.3 K/mm3 (4.5-11.0) L 01/30/22 06:29 RBC 4.21 M/mm3 (3.65-5.03) 01/30/22 06:29 Hgb 14.1 gm/dl (11.8-15.2) 01/30/22 06:29 Hct 43.0 % (35.5-45.6) 01/30/22 06:29 MCV 102 fl (84-94) H 01/30/22 06:29 MCH 34 pg (28-32) H 01/30/22 06:29 MCHC 33 % (32-34) 01/30/22 06:29 RDW 15.2 % (13.2-15.2) 01/30/22 06:29 Plt Count 189 K/mm3 (140-440) 01/30/22 06:29 [place] % (Auto) [employer] 01/30/22 06:29 Add Manual Diff Complete 01/30/22 06:29 Total Counted 100 01/30/22 06:29 Seg Neuts % (Manual) 58.0 % (40.0-70.0) 01/30/22 06:29 Band Neutrophils % 1.0 % 01/30/22 06:29 Lymphocytes % (Manual) 25.0 % (13.4-35.0) 01/30/22 06:29 Reactive Lymphs % (Man) 0 % 01/30/22 06:29 Monocytes % (Manual) 14.0 % (0.0-7.3) H 01/30/22 06:29 Eosinophils % (Manual) 2.0 % (0.0-4.3) 01/30/22 06:29 Basophils % (Manual) 0 % (0.0-1.8) 01/30/22 06:29 Metamyelocytes % 0 % 01/30/22 06:29 Myelocytes % 0 % 01/30/22 06:29 Promyelocytes % 0 % 01/30/22 06:29 Blast Cells % 0 % 01/30/22 06:29 Nucleated RBC % Not Reportable 01/30/22 06:29 Seg Neutrophils # Man 1.9 K/mm3 (1.8-7.7) 01/30/22 06:29 Band Neutrophils # 0.0 K/mm3 01/30/22 06:29 Lymphocytes # (Manual) 0.8 K/mm3 (1.2-5.4) L 01/30/22 06:29 Abs React Lymphs (Man) 0.0 K/mm3 01/30/22 06:29 Monocytes # (Manual) 0.5 K/mm3 (0.0-0.8) 01/30/22 06:29 Eosinophils # (Manual) 0.1 K/mm3 (0.0-0.4) 01/30/22 06:29 Basophils # (Manual) 0.0 K/mm3 (0.0-0.1) 01/30/22 06:29 Metamyelocytes # 0.0 K/mm3 01/30/22 06:29 Myelocytes # 0.0 K/mm3 01/30/22 06:29 Promyelocytes # 0.0 K/mm3 01/30/22 06:29 Blast Cells # 0.0 K/mm3 01/30/22 06:29 WBC Morphology Not Reportable 01/30/22 06:29 Hypersegmented Neuts Not Reportable 01/30/22 06:29 Hyposegmented Neuts Not Reportable 01/30/22 06:29 Hypogranular Neuts Not Reportable 01/30/22 06:29 Smudge Cells Not Reportable 01/30/22 06:29 Toxic Granulation Not Reportable 01/30/22 06:29 Toxic Vacuolation Not Reportable 01/30/22 06:29 Dohle Bodies Not Reportable 01/30/22 06:29 Pelger-Huet Anomaly Not Reportable 01/30/22 06:29 Lakshmi Rods Not Reportable 01/30/22 06:29 Platelet Estimate Consistent w auto 01/30/22 06:29 Clumped Platelets Not Reportable 01/30/22 06:29 Plt Clumps, EDTA Not Reportable 01/30/22 06:29 Large Platelets Not Reportable 01/30/22 06:29 Giant Platelets Not Reportable 01/30/22 06:29 Platelet Satelliting Not Reportable 01/30/22 06:29 Plt Morphology Comment Not Reportable 01/30/22 06:29 RBC Morphology Normal 01/30/22 06:29 Dimorphic RBCs Not Reportable 01/30/22 06:29 Polychromasia Not Reportable 01/30/22 06:29 Hypochromasia Not Reportable 01/30/22 06:29 Poikilocytosis Not Reportable 01/30/22 06:29 Anisocytosis Not Reportable 01/30/22 06:29 Microcytosis Not Reportable 01/30/22 06:29 Macrocytosis Not Reportable 01/30/22 06:29 Spherocytes Not Reportable 01/30/22 06:29 Pappenheimer Bodies Not Reportable 01/30/22 06:29 Sickle Cells Not Reportable 01/30/22 06:29 Target Cells Not Reportable 01/30/22 06:29 Tear Drop Cells Not Reportable 01/30/22 06:29 Ovalocytes Not Reportable 01/30/22 06:29 Helmet Cells Not Reportable 01/30/22 06:29 Orellana-Lamboglia Bodies Not Reportable 01/30/22 06:29 [place] Rings Not Reportable 01/30/22 06:29 [place] Cells Not Reportable 01/30/22 06:29 Bite Cells Not Reportable 01/30/22 06:29 Crenated Cell Not Reportable 01/30/22 06:29 Elliptocytes Not Reportable 01/30/22 06:29 Acanthocytes (Spur) Not Reportable 01/30/22 06:29 Rouleaux Not Reportable 01/30/22 06:29 Hemoglobin C Crystals Not Reportable 01/30/22 06:29 Schistocytes Not Reportable 01/30/22 06:29 Malaria parasites Not Reportable 01/30/22 06:29 Cash Bodies Not Reportable 01/30/22 06:29 Hem Pathologist Commnt No 01/30/22 06:29 Sodium 143 mmol/L (137-145) 01/30/22 06:29 Potassium 3.8 mmol/L (3.6-5.0) 01/30/22 06:29 Chloride 110.5 mmol/L (98-107) H 01/30/22 06:29 Carbon Dioxide 25 mmol/L (22-30) 01/30/22 06:29 Anion Gap 11 mmol/L 01/30/22 06:29 BUN 11 mg/dL (9-20) 01/30/22 06:29 Creatinine 0.6 mg/dL (0.8-1.3) L 01/30/22 06:29 Estimated GFR > 60 ml/min 01/30/22 06:29 BUN/Creatinine Ratio 18 % 01/30/22 06:29 Glucose 84 mg/dL (75-100) 01/30/22 06:29 Calcium 8.5 mg/dL (8.4-10.2) 01/30/22 06:29 Total Bilirubin 0.40 mg/dL (0.1-1.2) 01/30/22 06:29 AST 19 units/L (5-40) 01/30/22 06:29 ALT 12 units/L (7-56) 01/30/22 06:29 Alkaline Phosphatase 70 units/L (35-129) 01/30/22 06:29 Total Protein 6.9 g/dL (6.3-8.2) 01/30/22 06:29 Albumin 2.4 g/dL (3.9-5) L 01/30/22 06:29 Albumin/Globulin Ratio 0.5 % 01/30/22 06:29 Urine Color Ronda (Yellow) 01/30/22 13:16 Urine Turbidity Cloudy (Clear) 01/30/22 13:16 Urine pH 9.0 (5.0-7.0) H 01/30/22 13:16 Ur Specific [place] 1.017 (1.003-1.030) 01/30/22 13:16 Urine Protein 30 mg/dl mg/dL (Negative) 01/30/22 13:16 Urine Glucose (UA) Neg mg/dL (Negative) 01/30/22 13:16 Urine Ketones Neg mg/dL (Negative) 01/30/22 13:16 Urine Blood Neg (Negative) 01/30/22 13:16 Urine Nitrite Neg (Negative) 01/30/22 13:16 Urine Bilirubin Neg (Negative) 01/30/22 13:16 Urine Urobilinogen < 2.0 mg/dL (<2.0) 01/30/22 13:16 Ur Leukocyte Esterase Lg (Negative) 01/30/22 13:16 Urine WBC (Auto) 56.0 /HPF (0.0-6.0) H 01/30/22 13:16 Urine RBC (Auto) 3.0 /HPF (0.0-6.0) 01/30/22 13:16 U Epithel Cells (Auto) 1.0 /HPF (0-13.0) 01/30/22 13:16 Urine Bacteria (Auto) 4+ /HPF (Negative) 01/30/22 13:16 Urine Mucus 2+ /HPF 01/30/22 13:16 Urine Yeast (Budding) 3+ /HPF 01/30/22 13:16 Urine Opiates Screen Negative 01/30/22 13:16 Urine Methadone Screen Negative 01/30/22 13:16 Ur Barbiturates Screen Negative 01/30/22 13:16 Levetiracetam 13.1 mcg/mL (6.0-46.0) 01/29/22 11:33 Ur Phencyclidine Scrn Negative 01/30/22 13:16 Ur Amphetamines Screen Negative 01/30/22 13:16 U Benzodiazepines Scrn Negative 01/30/22 13:16 Urine Cocaine Screen Negative 01/30/22 13:16 U Marijuana (THC) Screen Negative 01/30/22 13:16 Drugs of Abuse Note Disclamer 01/30/22 13:16 Horowitz/IV: Voiding Method Condom Catheter Active Medications - Current Medications Current Medications: Generic Name Dose Route Start Last Admin Trade Name Freq PRN Reason Stop Dose Admin Acetaminophen 650 mg 01/29/22 21:14 Acetaminophen 325 Mg Tab PO Q4H PRN Pain MILD(1-3)/Fever >100.5/[place] Amlodipine Besylate 2.5 mg 01/29/22 22:00 01/31/22 11:27 Amlodipine 5 Mg Tab PO 2.5 mg DAILY [facility] Administration Docusate Sodium 100 mg 01/30/22 10:00 01/31/22 11:27 Docusate Sodium 100 Mg Cap PO 100 mg DAILY [facility] Administration Famotidine 20 mg 01/30/22 22:00 01/31/22 11:27 Famotidine 20 Mg Tab PO 20 mg BID [facility] Administration Heparin Sodium (Porcine) 5,000 unit 01/29/22 22:00 01/31/22 11:27 Heparin 5,000 Unit/1 Ml Vial SUB-Q 5,000 unit Q12HR [facility] Administration Sodium Chloride 1,000 mls @ 75 mls/hr 01/29/22 21:15 01/31/22 05:38 Nacl 0.9% 1000 Ml IV 75 mls/hr DIRECT [facility] Administration Levetiracetam 500 mg 01/31/22 22:00 Levetiracetam 500 Mg Tab PO BID [facility] Levothyroxine Sodium 25 mcg 01/30/22 08:00 01/31/22 05:37 Levothyroxine 25 Mcg Tab PO 25 mcg DAILY@0600 [facility] Administration Lorazepam 1 mg 01/29/22 23:25 01/29/22 23:35 Lorazepam 2 Mg/Ml Vial IV 1 mg Q4H PRN Administration Agitation Melatonin 5 mg 01/29/22 22:00 01/30/22 21:58 Melatonin 5 Mg Tab PO 5 mg QHS [facility] Administration Methylphenidate HCl 20 mg 01/29/22 22:00 01/31/22 11:27 Methylphenidate 5 Mg Tab PO 20 mg BID [facility] Administration Miscellaneous Medication 50 mg 01/29/22 21:15 01/30/22 00:03 Mirabegron [Myrbetriq] PO Not Given QDAY [facility] Miscellaneous Medication 250 mg 01/30/22 10:00 Armodafinil [Armodafinil] PO QAM [facility] Morphine Sulfate 2 mg 01/29/22 21:14 Morphine 2 Mg/1 Ml Inj IV Q4H PRN Pain, Moderate (4-6) Ondansetron HCl 4 mg 01/29/22 21:14 Ondansetron 4 Mg/2 Ml Inj IV Q8H PRN Nausea And Vomiting Pravastatin Sodium 40 mg 01/29/22 22:00 01/30/22 21:58 Pravastatin 40 Mg Tab PO 40 mg QHS [facility] Administration Sodium Chloride 10 ml 01/29/22 22:00 01/31/22 11:27 Sodium Chloride 0.9% 10 Ml Flush Syringe IV 10 ml BID [facility] Administration Sodium Chloride 10 ml 01/29/22 21:14 Sodium Chloride 0.9% 10 Ml Flush Syringe IV PRN PRN LINE FLUSH
[2022-01-31] MEDS: MELATONIN 5 MG TAB PO SCH (23:48)
[2022-01-31] MEDS: levETIRAcetam 500 MG TAB PO SCH (23:48)
[2022-01-31] MEDS: PRAVASTATIN 40 MG TAB PO SCH (23:48)
[2022-02-01] MEDS: LEVOTHYROXINE 25 MCG TAB PO SCH (06:01)
[2022-02-01] MEDS: SODIUM CHLORIDE 0.9% 1000 ML 1,000 ML IV SCH ×2 (07:56→20:51)
[2022-02-01] MEDS: METHYLPHENIDATE 5 MG TAB PO SCH ×2 (09:01→21:05)
[2022-02-01] MEDS: amLODIPine 5 MG TAB PO SCH (09:01)
[2022-02-01] MEDS: levETIRAcetam 500 MG TAB PO SCH ×2 (09:02→21:06)
[2022-02-01] MEDS: HEPARIN 5,000 UNIT/1 ML VIAL SUB-Q SCH ×2 (09:02→21:06)
[2022-02-01] MEDS: DOCUSATE SODIUM 100 MG CAP PO SCH (09:02)
[2022-02-01] MEDS: FAMOTIDINE 20 MG TAB PO SCH ×2 (09:09→21:06)
--- NOTE | 2022-02-01 19:22 | Progress Note ---
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 Supportive care --Hypertension/moderate control Continue current antihypertensives, as needed medications -- Hyperlipidemia Continue statins, Low-cholesterol diet --Overactive bladder Continue Myrbetriq, Supportive care --Narcolepsy On Armodafonil, Supportive care --DVT prophylaxis On heparin and GI prophylaxis --Severe protein calorie malnutrition Nutrition supplements and supportive care -- Normal pressure hydrocephalus Needs follow-up with neurology and neurosurgery as outpatient --Advance care planning Could not be done because of the patient's lethargic condition --Discharge planning issues Patient may be discharged tomorrow if patient is at baseline level of [facility] PT OT evaluation Follow neurology evaluation recommendations Plan of care reviewed with the patient and his nurse Neurology evaluation noted and appreciated 02/01/2022; urine cultures positive for Proteus mirabilis Pansensitive, will start Rocephin for total 5 days History Interval history: I have seen and examined the patient at the bedside Patient's chart and medications reviewed Patient is noncommunicative, Down syndrome patient No new overnight events reported by the nursing Vital signs noted Hospitalist Physical - Constitutional Vitals: Temp Pulse Resp BP Pulse Ox 98.0 F 98 H 18 143/77 96 02/01/22 11:21 02/01/22 11:21 02/01/22 11:21 02/01/22 11:21 02/01/22 11:21 General appearance: Present: no acute distress, well-nourished, other (Noncommunicative) - EENT Eyes: Present: PERRL, EOM intact - Neck Neck: Present: supple, normal ROM - Respiratory Respiratory effort: normal, labored Respiratory: bilateral: diminished, negative: rales, rhonchi, wheezing - Cardiovascular Rhythm: regular Heart Sounds: Present: S1 & S2 - Extremities Extremities: no ischemia, No edema - Abdominal General gastrointestinal: soft, non-tender, non-distended, normal bowel sounds - Integumentary Integumentary: Present: clear, warm - Psychiatric Psychiatric: other (Noncommunicative) - Neurologic Neurologic: moves all extremities, other (Noncommunicative) Results - Labs CBC & Chem 7: 01/30/22 06:29 01/30/22 06:29 Labs: Laboratory Last Values WBC 3.3 K/mm3 (4.5-11.0) L 01/30/22 06:29 RBC 4.21 M/mm3 (3.65-5.03) 01/30/22 06:29 Hgb 14.1 gm/dl (11.8-15.2) 01/30/22 06:29 Hct 43.0 % (35.5-45.6) 01/30/22 06:29 MCV 102 fl (84-94) H 01/30/22 06:29 MCH 34 pg (28-32) H 01/30/22 06:29 MCHC 33 % (32-34) 01/30/22 06:29 RDW 15.2 % (13.2-15.2) 01/30/22 06:29 Plt Count 189 K/mm3 (140-440) 01/30/22 06:29 [place] % (Auto) Contract Attorney 01/30/22 06:29 Add Manual Diff Complete 01/30/22 06:29 Total Counted 100 01/30/22 06:29 Seg Neuts % (Manual) 58.0 % (40.0-70.0) 01/30/22 06:29 Band Neutrophils % 1.0 % 01/30/22 06:29 Lymphocytes % (Manual) 25.0 % (13.4-35.0) 01/30/22 06:29 Reactive Lymphs % (Man) 0 % 01/30/22 06:29 Monocytes % (Manual) 14.0 % (0.0-7.3) H 01/30/22 06:29 Eosinophils % (Manual) 2.0 % (0.0-4.3) 01/30/22 06:29 Basophils % (Manual) 0 % (0.0-1.8) 01/30/22 06:29 Metamyelocytes % 0 % 01/30/22 06:29 Myelocytes % 0 % 01/30/22 06:29 Promyelocytes % 0 % 01/30/22 06:29 Blast Cells % 0 % 01/30/22 06:29 Nucleated RBC % Not Reportable 01/30/22 06:29 Seg Neutrophils # Man 1.9 K/mm3 (1.8-7.7) 01/30/22 06:29 Band Neutrophils # 0.0 K/mm3 01/30/22 06:29 Lymphocytes # (Manual) 0.8 K/mm3 (1.2-5.4) L 01/30/22 06:29 Abs React Lymphs (Man) 0.0 K/mm3 01/30/22 06:29 Monocytes # (Manual) 0.5 K/mm3 (0.0-0.8) 01/30/22 06:29 Eosinophils # (Manual) 0.1 K/mm3 (0.0-0.4) 01/30/22 06:29 Basophils # (Manual) 0.0 K/mm3 (0.0-0.1) 01/30/22 06:29 Metamyelocytes # 0.0 K/mm3 01/30/22 06:29 Myelocytes # 0.0 K/mm3 01/30/22 06:29 Promyelocytes # 0.0 K/mm3 01/30/22 06:29 Blast Cells # 0.0 K/mm3 01/30/22 06:29 WBC Morphology Not Reportable 01/30/22 06:29 Hypersegmented Neuts Not Reportable 01/30/22 06:29 Hyposegmented Neuts Not Reportable 01/30/22 06:29 Hypogranular Neuts Not Reportable 01/30/22 06:29 Smudge Cells Not Reportable 01/30/22 06:29 Toxic Granulation Not Reportable 01/30/22 06:29 Toxic Vacuolation Not Reportable 01/30/22 06:29 Dohle Bodies Not Reportable 01/30/22 06:29 Pelger-Huet Anomaly Not Reportable 01/30/22 06:29 Lakshmi Rods Not Reportable 01/30/22 06:29 Platelet Estimate Consistent w auto 01/30/22 06:29 Clumped Platelets Not Reportable 01/30/22 06:29 Plt Clumps, EDTA Not Reportable 01/30/22 06:29 Large Platelets Not Reportable 01/30/22 06:29 Giant Platelets Not Reportable 01/30/22 06:29 Platelet Satelliting Not Reportable 01/30/22 06:29 Plt Morphology Comment Not Reportable 01/30/22 06:29 RBC Morphology Normal 01/30/22 06:29 Dimorphic RBCs Not Reportable 01/30/22 06:29 Polychromasia Not Reportable 01/30/22 06:29 Hypochromasia Not Reportable 01/30/22 06:29 Poikilocytosis Not Reportable 01/30/22 06:29 Anisocytosis Not Reportable 01/30/22 06:29 Microcytosis Not Reportable 01/30/22 06:29 Macrocytosis Not Reportable 01/30/22 06:29 Spherocytes Not Reportable 01/30/22 06:29 Pappenheimer Bodies Not Reportable 01/30/22 06:29 Sickle Cells Not Reportable 01/30/22 06:29 Target Cells Not Reportable 01/30/22 06:29 Tear Drop Cells Not Reportable 01/30/22 06:29 Ovalocytes Not Reportable 01/30/22 06:29 Helmet Cells Not Reportable 01/30/22 06:29 [place] Bodies Not Reportable 01/30/22 06:29 [place] Rings Not Reportable 01/30/22 06:29 [place] Cells Not Reportable 01/30/22 06:29 Bite Cells Not Reportable 01/30/22 06:29 Crenated Cell Not Reportable 01/30/22 06:29 Elliptocytes Not Reportable 01/30/22 06:29 Acanthocytes (Spur) Not Reportable 01/30/22 06:29 Rouleaux Not Reportable 01/30/22 06:29 Hemoglobin C Crystals Not Reportable 01/30/22 06:29 Schistocytes Not Reportable 01/30/22 06:29 Malaria parasites Not Reportable 01/30/22 06:29 Cash Bodies Not Reportable 01/30/22 06:29 Hem Pathologist Commnt No 01/30/22 06:29 Sodium 143 mmol/L (137-145) 01/30/22 06:29 Potassium 3.8 mmol/L (3.6-5.0) 01/30/22 06:29 Chloride 110.5 mmol/L (98-107) H 01/30/22 06:29 Carbon Dioxide 25 mmol/L (22-30) 01/30/22 06:29 Anion Gap 11 mmol/L 01/30/22 06:29 BUN 11 mg/dL (9-20) 01/30/22 06:29 Creatinine 0.6 mg/dL (0.8-1.3) L 01/30/22 06:29 Estimated GFR > 60 ml/min 01/30/22 06:29 BUN/Creatinine Ratio 18 % 01/30/22 06:29 Glucose 84 mg/dL (75-100) 01/30/22 06:29 Calcium 8.5 mg/dL (8.4-10.2) 01/30/22 06:29 Total Bilirubin 0.40 mg/dL (0.1-1.2) 01/30/22 06:29 AST 19 units/L (5-40) 01/30/22 06:29 ALT 12 units/L (7-56) 01/30/22 06:29 Alkaline Phosphatase 70 units/L (35-129) 01/30/22 06:29 Total Protein 6.9 g/dL (6.3-8.2) 01/30/22 06:29 Albumin 2.4 g/dL (3.9-5) L 01/30/22 06:29 Albumin/Globulin Ratio 0.5 % 01/30/22 06:29 Urine Color Ronda (Yellow) 01/30/22 13:16 Urine Turbidity Cloudy (Clear) 01/30/22 13:16 Urine pH 9.0 (5.0-7.0) H 01/30/22 13:16 Ur Specific [place] 1.017 (1.003-1.030) 01/30/22 13:16 Urine Protein 30 mg/dl mg/dL (Negative) 01/30/22 13:16 Urine Glucose (UA) Neg mg/dL (Negative) 01/30/22 13:16 Urine Ketones Neg mg/dL (Negative) 01/30/22 13:16 Urine Blood Neg (Negative) 01/30/22 13:16 Urine Nitrite Neg (Negative) 01/30/22 13:16 Urine Bilirubin Neg (Negative) 01/30/22 13:16 Urine Urobilinogen < 2.0 mg/dL (<2.0) 01/30/22 13:16 Ur Leukocyte Esterase Lg (Negative) 01/30/22 13:16 Urine WBC (Auto) 56.0 /HPF (0.0-6.0) H 01/30/22 13:16 Urine RBC (Auto) 3.0 /HPF (0.0-6.0) 01/30/22 13:16 U Epithel Cells (Auto) 1.0 /HPF (0-13.0) 01/30/22 13:16 Urine Bacteria (Auto) 4+ /HPF (Negative) 01/30/22 13:16 Urine Mucus 2+ /HPF 01/30/22 13:16 Urine Yeast (Budding) 3+ /HPF 01/30/22 13:16 Urine Opiates Screen Negative 01/30/22 13:16 Urine Methadone Screen Negative 01/30/22 13:16 Ur Barbiturates Screen Negative 01/30/22 13:16 Levetiracetam 13.1 mcg/mL (6.0-46.0) 01/29/22 11:33 Ur Phencyclidine Scrn Negative 01/30/22 13:16 Ur Amphetamines Screen Negative 01/30/22 13:16 U Benzodiazepines Scrn Negative 01/30/22 13:16 Urine Cocaine Screen Negative 01/30/22 13:16 U Marijuana (THC) Screen Negative 01/30/22 13:16 Drugs of Abuse Note Disclamer 01/30/22 13:16 Microbiology: Microbiology 01/30/22 13:16 Urine,Clean Catch Urine Culture - Final Proteus Mirabilis Horowitz/IV: Voiding Method Condom Catheter Active Medications - Current Medications Current Medications: Generic Name Dose Route Start Last Admin Trade Name Freq PRN Reason Stop Dose Admin Acetaminophen 650 mg 01/29/22 21:14 Acetaminophen 325 Mg Tab PO Q4H PRN Pain MILD(1-3)/Fever >100.5/[place] Amlodipine Besylate 2.5 mg 01/29/22 22:00 02/01/22 09:01 Amlodipine 5 Mg Tab PO 2.5 mg DAILY LAZARUS Administration Docusate Sodium 100 mg 01/30/22 10:00 02/01/22 09:02 Docusate Sodium 100 Mg Cap PO 100 mg DAILY LAZARUS Administration Famotidine 20 mg 01/30/22 22:00 02/01/22 09:09 Famotidine 20 Mg Tab PO 20 mg BID LAZARUS Administration Heparin Sodium (Porcine) 5,000 unit 01/29/22 22:00 02/01/22 09:02 Heparin 5,000 Unit/1 Ml Vial SUB-Q 5,000 unit Q12HR LAZARUS Administration Sodium Chloride 1,000 mls @ 75 mls/hr 01/29/22 21:15 02/01/22 07:56 Nacl 0.9% 1000 Ml IV 75 mls/hr DIRECT LAZARUS Administration Levetiracetam 500 mg 01/31/22 22:00 02/01/22 09:02 Levetiracetam 500 Mg Tab PO 500 mg BID LAZARUS Administration Levothyroxine Sodium 25 mcg 01/30/22 08:00 02/01/22 06:01 Levothyroxine 25 Mcg Tab PO 25 mcg DAILY@0600 LAZARUS Administration Lorazepam 1 mg 01/29/22 23:25 01/29/22 23:35 Lorazepam 2 Mg/Ml Vial IV 1 mg Q4H PRN Administration Agitation Melatonin 5 mg 01/29/22 22:00 01/31/22 23:48 Melatonin 5 Mg Tab PO 5 mg QHS LAZARUS Administration Methylphenidate HCl 20 mg 01/29/22 22:00 02/01/22 09:01 Methylphenidate 5 Mg Tab PO 20 mg BID LAZARUS Administration Miscellaneous Medication 50 mg 01/29/22 21:15 01/30/22 00:03 Mirabegron [Myrbetriq] PO Not Given QDAY [facility] Miscellaneous Medication 250 mg 01/30/22 10:00 Armodafinil [Armodafinil] PO QAM [facility] Morphine Sulfate 2 mg 01/29/22 21:14 Morphine 2 Mg/1 Ml Inj IV Q4H PRN Pain, Moderate (4-6) Ondansetron HCl 4 mg 01/29/22 21:14 Ondansetron 4 Mg/2 Ml Inj IV Q8H PRN Nausea And Vomiting Pravastatin Sodium 40 mg 01/29/22 22:00 01/31/22 23:48 Pravastatin 40 Mg Tab PO 40 mg QHS LAZARUS Administration Sodium Chloride 10 ml 01/29/22 22:00 02/01/22 09:09 Sodium Chloride 0.9% 10 Ml Flush Syringe IV 10 ml BID LAZARUS Administration Sodium Chloride 10 ml 01/29/22 21:14 Sodium Chloride 0.9% 10 Ml Flush Syringe IV PRN PRN LINE FLUSH
[2022-02-01] MEDS: cefTRIAXone/NS 2 GM/100 ML 2 GM/100 ML BAG IV SCH (20:51)
[2022-02-01] MEDS: MELATONIN 5 MG TAB PO SCH (21:06)
[2022-02-01] MEDS: PRAVASTATIN 40 MG TAB PO SCH (21:06)
[2022-02-02] MEDS: LEVOTHYROXINE 25 MCG TAB PO SCH (05:27)
[2022-02-02] MEDS: METHYLPHENIDATE 5 MG TAB PO SCH ×2 (09:27→21:12)
[2022-02-02] MEDS: DOCUSATE SODIUM 100 MG CAP PO SCH (09:27)
[2022-02-02] MEDS: HEPARIN 5,000 UNIT/1 ML VIAL SUB-Q SCH ×2 (09:28→21:13)
[2022-02-02] MEDS: levETIRAcetam 500 MG TAB PO SCH ×2 (09:28→21:12)
[2022-02-02] MEDS: amLODIPine 5 MG TAB PO SCH (09:28)
[2022-02-02] MEDS: FAMOTIDINE 20 MG TAB PO SCH ×2 (09:28→21:13)
--- NOTE | 2022-02-02 10:03 | Progress Note ---
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 Supportive care --Hypertension/moderate control Continue current antihypertensives, as needed medications -- Hyperlipidemia Continue statins, Low-cholesterol diet --Overactive bladder Continue Myrbetriq, Supportive care --Narcolepsy On Armodafonil, Supportive care --DVT prophylaxis On heparin and GI prophylaxis --Severe protein calorie malnutrition Nutrition supplements and supportive care -- Normal pressure hydrocephalus Needs follow-up with neurology and neurosurgery as outpatient --Advance care planning Could not be done because of the patient's lethargic condition --Discharge planning issues Patient may be discharged tomorrow if patient is at baseline level of consciousness back to halfway PT OT evaluation Follow neurology evaluation recommendations Plan of care reviewed with the patient and his nurse Neurology evaluation noted and appreciated 02/01/2022; urine cultures positive for Proteus mirabilis Pansensitive, will start Rocephin for total 5 days 02/02; patient is receiving antibiotics Rocephin Continue supportive care History Interval history: I have seen and examined the patient at the bedside this morning Patient's chart and medications reviewed Patient has sepsis secondary to urinary tract infection on IV Rocephin No new events reported by the nursing staff Vital signs noted Hospitalist Physical - Constitutional Vitals: Temp Pulse Resp BP Pulse Ox 97.4 F L 86 18 138/59 98 02/02/22 04:40 02/02/22 04:40 02/02/22 04:40 02/02/22 04:40 02/02/22 04:40 General appearance: Present: no acute distress, well-nourished, other (Noncommunicative/Down syndrome ) - EENT Eyes: Present: PERRL, EOM intact - Neck Neck: Present: supple, normal ROM - Respiratory Respiratory effort: normal Respiratory: bilateral: diminished, negative: rales, rhonchi, wheezing - Cardiovascular Rhythm: regular Heart Sounds: Present: S1 & S2 - Extremities Extremities: no ischemia, No edema - Abdominal General gastrointestinal: soft, non-tender, non-distended - Integumentary Integumentary: Present: clear, warm - Psychiatric Psychiatric: other - Neurologic Neurologic: other (Noncommunicative noncommunicative Down syndrome) Results - Labs CBC & Chem 7: 01/30/22 06:29 01/30/22 06:29 Labs: Laboratory Last Values WBC 3.3 K/mm3 (4.5-11.0) L 01/30/22 06:29 RBC 4.21 M/mm3 (3.65-5.03) 01/30/22 06:29 Hgb 14.1 gm/dl (11.8-15.2) 01/30/22 06:29 Hct 43.0 % (35.5-45.6) 01/30/22 06:29 MCV 102 fl (84-94) H 01/30/22 06:29 MCH 34 pg (28-32) H 01/30/22 06:29 MCHC 33 % (32-34) 01/30/22 06:29 RDW 15.2 % (13.2-15.2) 01/30/22 06:29 Plt Count 189 K/mm3 (140-440) 01/30/22 06:29 [place] % (Auto) Regulator Pin Inserter 01/30/22 06:29 Add Manual Diff Complete 01/30/22 06:29 Total Counted 100 01/30/22 06:29 Seg Neuts % (Manual) 58.0 % (40.0-70.0) 01/30/22 06:29 Band Neutrophils % 1.0 % 01/30/22 06:29 Lymphocytes % (Manual) 25.0 % (13.4-35.0) 01/30/22 06:29 Reactive Lymphs % (Man) 0 % 01/30/22 06:29 Monocytes % (Manual) 14.0 % (0.0-7.3) H 01/30/22 06:29 Eosinophils % (Manual) 2.0 % (0.0-4.3) 01/30/22 06:29 Basophils % (Manual) 0 % (0.0-1.8) 01/30/22 06:29 Metamyelocytes % 0 % 01/30/22 06:29 Myelocytes % 0 % 01/30/22 06:29 Promyelocytes % 0 % 01/30/22 06:29 Blast Cells % 0 % 01/30/22 06:29 Nucleated RBC % Not Reportable 01/30/22 06:29 Seg Neutrophils # Man 1.9 K/mm3 (1.8-7.7) 01/30/22 06:29 Band Neutrophils # 0.0 K/mm3 01/30/22 06:29 Lymphocytes # (Manual) 0.8 K/mm3 (1.2-5.4) L 01/30/22 06:29 Abs React Lymphs (Man) 0.0 K/mm3 01/30/22 06:29 Monocytes # (Manual) 0.5 K/mm3 (0.0-0.8) 01/30/22 06:29 Eosinophils # (Manual) 0.1 K/mm3 (0.0-0.4) 01/30/22 06:29 Basophils # (Manual) 0.0 K/mm3 (0.0-0.1) 01/30/22 06:29 Metamyelocytes # 0.0 K/mm3 01/30/22 06:29 Myelocytes # 0.0 K/mm3 01/30/22 06:29 Promyelocytes # 0.0 K/mm3 01/30/22 06:29 Blast Cells # 0.0 K/mm3 01/30/22 06:29 WBC Morphology Not Reportable 01/30/22 06:29 Hypersegmented Neuts Not Reportable 01/30/22 06:29 Hyposegmented Neuts Not Reportable 01/30/22 06:29 Hypogranular Neuts Not Reportable 01/30/22 06:29 Smudge Cells Not Reportable 01/30/22 06:29 Toxic Granulation Not Reportable 01/30/22 06:29 Toxic Vacuolation Not Reportable 01/30/22 06:29 Dohle Bodies Not Reportable 01/30/22 06:29 Pelger-Huet Anomaly Not Reportable 01/30/22 06:29 Lakshmi Rods Not Reportable 01/30/22 06:29 Platelet Estimate Consistent w auto 01/30/22 06:29 Clumped Platelets Not Reportable 01/30/22 06:29 Plt Clumps, EDTA Not Reportable 01/30/22 06:29 Large Platelets Not Reportable 01/30/22 06:29 Giant Platelets Not Reportable 01/30/22 06:29 Platelet Satelliting Not Reportable 01/30/22 06:29 Plt Morphology Comment Not Reportable 01/30/22 06:29 RBC Morphology Normal 01/30/22 06:29 Dimorphic RBCs Not Reportable 01/30/22 06:29 Polychromasia Not Reportable 01/30/22 06:29 Hypochromasia Not Reportable 01/30/22 06:29 Poikilocytosis Not Reportable 01/30/22 06:29 Anisocytosis Not Reportable 01/30/22 06:29 Microcytosis Not Reportable 01/30/22 06:29 Macrocytosis Not Reportable 01/30/22 06:29 Spherocytes Not Reportable 01/30/22 06:29 Pappenheimer Bodies Not Reportable 01/30/22 06:29 Sickle Cells Not Reportable 01/30/22 06:29 Target Cells Not Reportable 01/30/22 06:29 Tear Drop Cells Not Reportable 01/30/22 06:29 Ovalocytes Not Reportable 01/30/22 06:29 Helmet Cells Not Reportable 01/30/22 06:29 [place] Bodies Not Reportable 01/30/22 06:29 [place] Rings Not Reportable 01/30/22 06:29 [place] Cells Not Reportable 01/30/22 06:29 Bite Cells Not Reportable 01/30/22 06:29 Crenated Cell Not Reportable 01/30/22 06:29 Elliptocytes Not Reportable 01/30/22 06:29 Acanthocytes (Spur) Not Reportable 01/30/22 06:29 Rouleaux Not Reportable 01/30/22 06:29 Hemoglobin C Crystals Not Reportable 01/30/22 06:29 Schistocytes Not Reportable 01/30/22 06:29 Malaria parasites Not Reportable 01/30/22 06:29 Cash Bodies Not Reportable 01/30/22 06:29 Hem Pathologist Commnt No 01/30/22 06:29 Sodium 143 mmol/L (137-145) 01/30/22 06:29 Potassium 3.8 mmol/L (3.6-5.0) 01/30/22 06:29 Chloride 110.5 mmol/L (98-107) H 01/30/22 06:29 Carbon Dioxide 25 mmol/L (22-30) 01/30/22 06:29 Anion Gap 11 mmol/L 01/30/22 06:29 BUN 11 mg/dL (9-20) 01/30/22 06:29 Creatinine 0.6 mg/dL (0.8-1.3) L 01/30/22 06:29 Estimated GFR > 60 ml/min 01/30/22 06:29 BUN/Creatinine Ratio 18 % 01/30/22 06:29 Glucose 84 mg/dL (75-100) 01/30/22 06:29 Calcium 8.5 mg/dL (8.4-10.2) 01/30/22 06:29 Total Bilirubin 0.40 mg/dL (0.1-1.2) 01/30/22 06:29 AST 19 units/L (5-40) 01/30/22 06:29 ALT 12 units/L (7-56) 01/30/22 06:29 Alkaline Phosphatase 70 units/L (35-129) 01/30/22 06:29 Total Protein 6.9 g/dL (6.3-8.2) 01/30/22 06:29 Albumin 2.4 g/dL (3.9-5) L 01/30/22 06:29 Albumin/Globulin Ratio 0.5 % 01/30/22 06:29 Urine Color [place]onda (Yellow) 01/30/22 13:16 Urine Turbidity Cloudy (Clear) 01/30/22 13:16 Urine pH 9.0 (5.0-7.0) H 01/30/22 13:16 Ur Specific [place] 1.017 (1.003-1.030) 01/30/22 13:16 Urine Protein 30 mg/dl mg/dL (Negative) 01/30/22 13:16 Urine Glucose (UA) Neg mg/dL (Negative) 01/30/22 13:16 Urine Ketones Neg mg/dL (Negative) 01/30/22 13:16 Urine Blood Neg (Negative) 01/30/22 13:16 Urine Nitrite Neg (Negative) 01/30/22 13:16 Urine Bilirubin Neg (Negative) 01/30/22 13:16 Urine Urobilinogen < 2.0 mg/dL (<2.0) 01/30/22 13:16 Ur Leukocyte Esterase Lg (Negative) 01/30/22 13:16 Urine WBC (Auto) 56.0 /HPF (0.0-6.0) H 01/30/22 13:16 Urine RBC (Auto) 3.0 /HPF (0.0-6.0) 01/30/22 13:16 U Epithel Cells (Auto) 1.0 /HPF (0-13.0) 01/30/22 13:16 Urine Bacteria (Auto) 4+ /HPF (Negative) 01/30/22 13:16 Urine Mucus 2+ /HPF 01/30/22 13:16 Urine Yeast (Budding) 3+ /HPF 01/30/22 13:16 Urine Opiates Screen Negative 01/30/22 13:16 Urine Methadone Screen Negative 01/30/22 13:16 Ur Barbiturates Screen Negative 01/30/22 13:16 Levetiracetam 13.1 mcg/mL (6.0-46.0) 01/29/22 11:33 Ur Phencyclidine Scrn Negative 01/30/22 13:16 Ur Amphetamines Screen Negative 01/30/22 13:16 U Benzodiazepines Scrn Negative 01/30/22 13:16 Urine Cocaine Screen Negative 01/30/22 13:16 U Marijuana (THC) Screen Negative 01/30/22 13:16 Drugs of Abuse Note Disclamer 01/30/22 13:16 Microbiology: Microbiology 01/30/22 13:16 Urine,Clean Catch Urine Culture - Final Proteus Mirabilis Horowitz/IV: Voiding Method Incontinent Active Medications - Current Medications Current Medications: Generic Name Dose Route Start Last Admin Trade Name Freq PRN Reason Stop Dose Admin Acetaminophen 650 mg 01/29/22 21:14 Acetaminophen 325 Mg Tab PO Q4H PRN Pain MILD(1-3)/Fever >100.5/[place] Amlodipine Besylate 2.5 mg 01/29/22 22:00 02/02/22 09:28 Amlodipine 5 Mg Tab PO 2.5 mg DAILY LAZARUS Administration Docusate Sodium 100 mg 01/30/22 10:00 02/02/22 09:27 Docusate Sodium 100 Mg Cap PO 100 mg DAILY LAZARUS Administration Famotidine 20 mg 01/30/22 22:00 02/02/22 09:28 Famotidine 20 Mg Tab PO 20 mg BID LAZARUS Administration Heparin Sodium (Porcine) 5,000 unit 01/29/22 22:00 02/02/22 09:28 Heparin 5,000 Unit/1 Ml Vial SUB-Q 5,000 unit Q12HR LAZARUS Administration Sodium Chloride 1,000 mls @ 75 mls/hr 01/29/22 21:15 02/01/22 20:51 Nacl 0.9% 1000 Ml IV 75 mls/hr DIRECT LAZARUS Administration Ceftriaxone Sodium 2 gm in 100 mls @ 200 mls/hr 02/01/22 20:00 02/01/22 20:51 Rocephin/Ns 2 Gm/100 Ml IV 02/06/22 19:59 200 mls/hr Q24H LAZARUS Administration Protocol Levetiracetam 500 mg 01/31/22 22:00 02/02/22 09:28 Levetiracetam 500 Mg Tab PO 500 mg BID LAZARUS Administration Levothyroxine Sodium 25 mcg 01/30/22 08:00 02/02/22 05:27 Levothyroxine 25 Mcg Tab PO 25 mcg DAILY@0600 LAZARUS Administration Lorazepam 1 mg 01/29/22 23:25 01/29/22 23:35 Lorazepam 2 Mg/Ml Vial IV 1 mg Q4H PRN Administration Agitation Melatonin 5 mg 01/29/22 22:00 02/01/22 21:06 Melatonin 5 Mg Tab PO 5 mg QHS LAZARUS Administration Methylphenidate HCl 20 mg 01/29/22 22:00 02/02/22 09:27 Methylphenidate 5 Mg Tab PO 20 mg BID LAZARUS Administration Miscellaneous Medication 50 mg 01/29/22 21:15 01/30/22 00:03 Mirabegron [Myrbetriq] PO Not Given QDAY LAZARUS Miscellaneous Medication 250 mg 01/30/22 10:00 Armodafinil [Armodafinil] PO QAM [facility] Morphine Sulfate 2 mg 01/29/22 21:14 Morphine 2 Mg/1 Ml Inj IV Q4H PRN Pain, Moderate (4-6) Ondansetron HCl 4 mg 01/29/22 21:14 Ondansetron 4 Mg/2 Ml Inj IV Q8H PRN Nausea And Vomiting Pravastatin Sodium 40 mg 01/29/22 22:00 02/01/22 21:06 Pravastatin 40 Mg Tab PO 40 mg QHS LAZARUS Administration Sodium Chloride 10 ml 01/29/22 22:00 02/02/22 09:28 Sodium Chloride 0.9% 10 Ml Flush Syringe IV 10 ml BID LAZARUS Administration Sodium Chloride 10 ml 01/29/22 21:14 Sodium Chloride 0.9% 10 Ml Flush Syringe IV PRN PRN LINE FLUSH
[2022-02-02] MEDS: SODIUM CHLORIDE 0.9% 1000 ML 1,000 ML IV SCH (11:46)
[2022-02-02] MEDS: cefTRIAXone/NS 2 GM/100 ML 2 GM/100 ML BAG IV SCH (20:35)
[2022-02-02] MEDS: PRAVASTATIN 40 MG TAB PO SCH (21:12)
[2022-02-02] MEDS: MELATONIN 5 MG TAB PO SCH (21:12)
[2022-02-03] MEDS: SODIUM CHLORIDE 0.9% 1000 ML 1,000 ML IV SCH ×2 (00:33→13:48)
[2022-02-03] MEDS: LEVOTHYROXINE 25 MCG TAB PO SCH (05:15)
[2022-02-03 05:38] VITALS: BP 145/78
[2022-02-03] MEDS: METHYLPHENIDATE 5 MG TAB PO SCH (11:23)
[2022-02-03] MEDS: amLODIPine 5 MG TAB PO SCH (11:24)
[2022-02-03] MEDS: DOCUSATE SODIUM 100 MG CAP PO SCH (11:24)
[2022-02-03] MEDS: levETIRAcetam 500 MG TAB PO SCH (11:24)
[2022-02-03] MEDS: FAMOTIDINE 20 MG TAB PO SCH (11:24)
[2022-02-03] MEDS: HEPARIN 5,000 UNIT/1 ML VIAL SUB-Q SCH (11:24)
--- NOTE | 2022-02-03 13:05 | Discharge Summary ---
Providers - Providers Date of Admission: 01/29/22 21:14 Date of discharge: 02/03/22 Attending physician: GABBY SAMUELS 01/29/22 21:14 Consult to Physician [CONS] Routine Comment: Consulting Provider: CHEYANNE VILLANUEVA Physician Instructions: Reason For Exam: Seizure disoder,NPH Primary care physician: MAURICIO BOCANEGRA Hospitalization Condition: Stable Hospital course: -- Acute metabolic encephalopathy Secondary to seizures, usual precautions Do not drive, continue Keppra Neurology following CT head without contrast marked central greater than cortical atrophy has progressed since 10/07/2017 interval since prior study 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 Evidence of interval development of remote small deep infarction in the right ganglier capsular distribution no acute intracranial abnormality noted -- Seizure disorder No new episodes of seizures CT scan head negative for abnormal findings Neurology evaluated Follow-up neurology outpatient upon discharge EEG, MRI brain as outpatient --History of Down syndrome Supportive care -- Sepsis secondary to urinary tract infection; Proteus mirabilis Managed with appropriate antibiotics per culture sensitivities IV Rocephin during hospital stay, discharged on Ceftin oral --Hypothyroidism Continue Synthroid. Supportive care --Hypertension/moderate control Continue current antihypertensives, as needed medications -- Hyperlipidemia Continue statins, Low-cholesterol diet --Overactive bladder Continue Myrbetriq, Supportive care --Narcolepsy On Armodafonil, Supportive care --DVT prophylaxis On heparin and GI prophylaxis --Severe protein calorie malnutrition Nutrition supplements and supportive care -- Normal pressure hydrocephalus Needs follow-up with neurology and neurosurgery as outpatient --Advance care planning Could not be done because of the patient's lethargic condition --Discharge planning issues Patient may be discharged tomorrow if patient is at baseline level of consciousness back to detention PT OT evaluation Disposition: [address] [place] [address] Final Discharge Diagnosis (Prints w/discharge instructions): Acute metabolic encephalopathy. Seizure disorder. history of Down syndrome. Sepsis secondary to urinary tract infection. Hypothyroidism. Hypertension. Hyperlipidemia. Overactive bladder. History of narcolepsy. Severe protein calorie malnutrition. Normal pressure and hydrocephalus Time spent for discharge: 40 min Core Measure Documentation - Palliative Care Palliative Care/ Comfort Measures: Not Applicable - Core Measures Any of the following diagnoses?: none Exam - Constitutional Vitals: Temp Pulse Resp BP Pulse Ox 98.1 F 99 H 18 145/78 97 02/03/22 04:02 02/03/22 04:02 02/03/22 04:02 02/03/22 04:02 02/03/22 04:02 Plan Activity: advance as tolerated, fall precautions, other Diet: other (Pured diet as tolerated) Additional Instructions: Fall precautions. Seizure precautions. Aspiration precautions. If the patient has worsening symptoms contact MD or take him to the nearest emergency room as needed. Advised to see primary care physician in 1 week. Private neurologist in 1 to 2 weeks for further evaluation of seizures. EEG, MRI brain per neurologist office Follow up with: MAURICIO BOCANEGRA MD [Primary Care Provider] - 3-5 Days AN HOU MD [Staff Physician] - 7 Days Prescriptions: cefUROXime [Ceftin] 2 tab PO Q12H #20 levETIRAcetam [Keppra TAB] 500 mg PO BID #60 tablet Famotidine [Pepcid] 20 mg PO BID #60 tablet
[2022-02-03] MEDS ORDERED: cefTRIAXone/NS 1 GM/50 ML 1 GM/50 ML BAG IV SCH (20:00)
== END 2022-02-03 20:40 | disposition home or self-care (01) | DRG 871 ==
LOC: ED 08:04 → 3A 21:14
PROVIDERS: ADMIT Internal Medicine; ATTEND Internal Medicine
DX: A41.89 Other specified sepsis (principal); E43 Unspecified severe protein-calorie malnutrition; G93.41 Metabolic encephalopathy; G91.2 (Idiopathic) normal pressure hydrocephalus; N39.0 Urinary tract infection, site not specified; E03.9 Hypothyroidism, unspecified; G47.419 Narcolepsy without cataplexy; Z68.22 Body mass index [BMI] 22.0-22.9, adult; I10 Essential (primary) hypertension; G40.909 Epilepsy, unspecified, not intractable, without status epilepticus; E78.2 Mixed hyperlipidemia; N32.81 Overactive bladder; Q90.9 Down syndrome, unspecified
CPT/HCPCS: 36415; 70450; 71045; 80053; 80177; 80307; 81001; 85007; 85025; 85027; 87076; 87086; 87186; G0378; J3490; J7060; J0696; J1644; J1953; J2060; J7030

== ENCOUNTER 2022-02-18 18:20 | Inpatient (IN) | payer MEDICARE ==
--- NOTE | 2022-02-18 21:08 | XRay Report ---
CHEST 1 VIEW 02/18/2022 8:51 PM INDICATION / CLINICAL INFORMATION: Altered Mental Status. COMPARISON: 01/29/2022 FINDINGS: SUPPORT DEVICES: None. HEART / MEDIASTINUM: No significant abnormality. LUNGS / PLEURA: Elevation right hemidiaphragm right lower lung atelectasis and effusion. Mild increas ed pulmonary vascularity No pneumothorax. Signer Name: Buddy Haley MD Signed: 02/18/2022 9:04 PM Workstation Name: [id number]
[2022-02-18 21:56] LABS: Color,Urine Dark Yellow (Yellow)
[2022-02-18 21:57] LABS: Amphetamine Screen,Urine Negative; Benzodiazepines Screen,Urine Negative; Bilirubin,Urine Negative (Negative); Blood,Urine Trace (Negative); Cannabinoid Screen,Urine Negative; Cocaine Screen,Urine Negative; Methadone Screen,Urine Negative; Opiate Screen,Urine Negative; Protein,Urine <15 mg/dL mg/dL (Negative); Urobilinogen,Urine < 2.0 mg/dL (<2.0)
[2022-02-18 22:00] LABS: Mucus,Urine FEW /HPF
--- NOTE | 2022-02-18 22:18 | Emergency Department Report ---
ED Altered Mental Status HPI - General Chief Complaint: Altered Mental Status Stated Complaint: AMS/SEPSIS ALERT Time Seen by Provider: 02/18/22 21:59 Source: EMS, old records reviewed Mode of arrival: Stretcher Limitations: Altered Mental Status, Physical Limitation - History of Present Illness Initial Comments: 61-year-old male with a past medical history of hypertension, seizures, mental retardation, Down syndrome, hyperlipidemia, and partially blind presents to the hospital from a residential with alteration in mental status. Patient was recently admitted here January 29 until February 03 for seizure exacerbation and discharged on antibiotics for UTI. Patient presents with nonrebreather and appears to desat to the 80s when removed. Patient opens eyes to voice but does not follow commands. Nurse spoke to Regla from the residential was able to provide additional information regarding patient's baseline and alteration in mental status. Prior to recent hospital admission patient required assistance with ADLs, assistance with ambulation and states he was able to feed himself when he was provided food. Since discharge patient has been unable to ambulate at all. He also has trouble grasping utensils and has a hard time coordinating placement of food in his mouth with feeds. She also reports that patient came from the hospital with a bedsore. - Related Data Home Medications Medication Instructions Recorded Confirmed Last Taken Calcium Carbonate/Vitamin D3 1 each PO QAM 10/07/17 01/30/22 1 Day Ago [Calcium 600-Vit D3 200 Tablet] ~06/05/20 Docusate Sodium [Stool Softener] 100 mg PO DAILY 10/07/17 01/30/22 01/29/22 Levothyroxine [Synthroid] 25 mcg PO QAM 10/07/17 01/30/22 01/29/22 Pravastatin [Pravachol] 40 mg PO QHS 10/07/17 01/30/22 01/29/22 amLODIPine 2.5 mg PO DAILY 10/07/17 01/30/22 1 Day Ago ~06/05/20 armodafiniL [Armodafinil] 250 mg PO QAM 03/14/19 01/30/22 1 Day Ago ~06/05/20 Melatonin [Melatonin 5MG CAP] 5 mg PO DAILY 06/06/20 01/30/22 1 Day Ago ~06/05/20 Methylphenidate [Ritalin] 20 mg PO BID 06/06/20 01/30/22 01/29/22 Mirabegron [Myrbetriq] 50 mg PO QDAY 06/06/20 01/30/22 1 Day Ago ~06/05/20 Tamsulosin [Flomax] 0.4 mg PO QDAY 01/30/22 01/30/22 01/29/22 Previous Rx's Medication Instructions Recorded Last Taken Type Famotidine [Pepcid] 20 mg PO BID #60 tablet 02/03/22 Unknown Rx cefUROXime [Ceftin] 2 tab PO Q12H #20 02/03/22 Unknown Rx levETIRAcetam [Keppra TAB] 500 mg PO BID #60 tablet 02/03/22 Unknown Rx Allergies Allergy/AdvReac Type Severity Reaction Status Date / Time codeine Allergy Unknown Verified 02/18/22 18:32 ED Review of Systems ROS: Stated complaint: AMS/SEPSIS ALERT Other details as noted in HPI Comment: Unobtainable due to pts medical conditions (Nonverbal at baseline) ED Past Medical Hx - Past Medical History Previous Medical History?: Yes Hx Hypertension: Yes Hx Seizures: Yes Additional medical history: MR,DOWN SYNDROME, Hyperlipidemia, Partially blind, syncope - Surgical History Additional Surgical History: UNABLE TO GET B/P IN TRAIGE OR EKG IN TRIAGE - Social History Smoking Status: Never Smoker - Medications Home Medications: Home Medications Medication Instructions Recorded Confirmed Last Taken Type Calcium Carbonate/Vitamin D3 1 each PO QAM 10/07/17 01/30/22 1 Day Ago History [Calcium 600-Vit D3 200 Tablet] ~06/05/20 Docusate Sodium [Stool Softener] 100 mg PO DAILY 10/07/17 01/30/22 01/29/22 History Levothyroxine [Synthroid] 25 mcg PO QAM 10/07/17 01/30/22 01/29/22 History Pravastatin [Pravachol] 40 mg PO QHS 10/07/17 01/30/22 01/29/22 History amLODIPine 2.5 mg PO DAILY 10/07/17 01/30/22 1 Day Ago History ~06/05/20 armodafiniL [Armodafinil] 250 mg PO QAM 03/14/19 01/30/22 1 Day Ago History ~06/05/20 Melatonin [Melatonin 5MG CAP] 5 mg PO DAILY 06/06/20 01/30/22 1 Day Ago History ~06/05/20 Methylphenidate [Ritalin] 20 mg PO BID 06/06/20 01/30/22 01/29/22 History Mirabegron [Myrbetriq] 50 mg PO QDAY 06/06/20 01/30/22 1 Day Ago History ~06/05/20 Tamsulosin [Flomax] 0.4 mg PO QDAY 01/30/22 01/30/22 01/29/22 History Famotidine [Pepcid] 20 mg PO BID #60 tablet 02/03/22 Unknown Rx cefUROXime [Ceftin] 2 tab PO Q12H #20 02/03/22 Unknown Rx levETIRAcetam [Keppra TAB] 500 mg PO BID #60 tablet 02/03/22 Unknown Rx ED Physical Exam - General Limitations: Altered Mental Status, Physical Limitation - Other Other exam information: General: No acute distress Head: Atraumatic Eyes: normal appearance ENT: Moist mucous membranes Neck: Normal appearance, no midline tenderness Chest: Bilateral rhonchi, wet sounding cough CV: Regular rate and rhythm Abdomen: Soft, normal bowel sounds, nontender, nondistended, no rebound or guarding. No PEG Extremity: Mild left hand edema. No erythema or warmth. Neuro: Lethargic, opens eyes to voice, does not follow commands, nonverbal at baseline, withdraws and localizes tactile stimulation to bilateral upper and lower extremities ED Course Vital Signs 02/18/22 02/18/22 02/18/22 18:27 19:52 21:41 Temperature 99.4 F 99.0 F Pulse Rate 95 H 101 H 103 H Respiratory 16 17 Rate Blood Pressure 118/67 Blood Pressure 118/84 111/65 [Left] O2 Sat by Pulse 98 99 99 Oximetry 02/19/22 02/19/22 00:09 01:08 Temperature Pulse Rate 97 H 103 H Respiratory 14 15 Rate Blood Pressure Blood Pressure 116/50 98/55 [Left] O2 Sat by Pulse 99 92 Oximetry - Reevaluation(s) Reevaluation #1: 02/18/22 23:15 ABG on room air reveals mild hypoxia with a PaO2 of 55 without acid-base disturbance. Patient placed on 4 L nasal cannula satting 96% - Lab Data Result diagrams: 02/18/22 21:02 02/18/22 21:02 Lab Results 02/18/22 02/18/22 02/18/22 Range/Units 19:34 21:02 21:02 WBC 9.8 (4.5-11.0) K/mm3 RBC 3.94 (3.65-5.03) M/mm3 Hgb 13.5 (11.8-15.2) gm/dl Hct 39.9 (35.5-45.6) % MCV 101 H (84-94) fl MCH 34 H (28-32) pg MCHC 34 (32-34) % RDW 16.1 H (13.2-15.2) % Plt Count 242 (140-440) K/mm3 Lymph % (Auto) 13.4 (13.4-35.0) % Rice % (Auto) 12.4 H (0.0-7.3) % Eos % (Auto) 0.4 (0.0-4.3) % Baso % (Auto) 0.8 (0.0-1.8) % Lymph # (Auto) 1.3 (1.2-5.4) K/mm3 Rice # (Auto) 1.2 H (0.0-0.8) K/mm3 Eos # (Auto) 0.0 (0.0-0.4) K/mm3 Baso # (Auto) 0.1 (0.0-0.1) K/mm3 Seg Neutrophils % 73.0 H (40.0-70.0) % Seg Neutrophils # 7.2 (1.8-7.7) K/mm3 PT 16.9 H (12.2-14.9) Sec. INR 1.20 H (0.87-1.13) ABG pH (7.350-7.450) pH Units ABG pCO2 mm Hg ABG pO2 (80.0-90.0) mm Hg ABG HCO3 (20.0-26.0) mmol/L ABG O2 Saturation (95.0-99.0) % ABG O2 Content (0.0-44) ABG Base Excess (-2.0-3.0) mmol/L ABG Hemoglobin (14.0-18.0) gm/dl ABG Carboxyhemoglobin (0.0-5.0) % ABG Methemoglobin (0.0-1.5) % Oxyhemoglobin (95.0-99.0) % FiO2 % Sodium (137-145) mmol/L Potassium (3.6-5.0) mmol/L Chloride (98-107) mmol/L Carbon Dioxide (22-30) mmol/L Anion Gap mmol/L BUN (9-20) mg/dL Creatinine (0.8-1.3) mg/dL Estimated GFR ml/min BUN/Creatinine Ratio % Glucose (75-100) mg/dL POC Glucose 116 H (70-105) mg/dL Lactic Acid (0.7-2.0) mmol/L Calcium (8.4-10.2) mg/dL Total Bilirubin (0.1-1.2) mg/dL AST (5-40) units/L ALT (7-56) units/L Alkaline Phosphatase (35-129) units/L Ammonia (25-60) umol/L Troponin T (0.00-0.029) ng/mL Total Protein (6.3-8.2) g/dL Albumin (3.9-5) g/dL Albumin/Globulin Ratio % Urine Color (Yellow) Urine Turbidity (Clear) Urine pH (5.0-7.0) Ur Specific [place] (1.003-1.030) Urine Protein (Negative) mg/dL Urine Glucose (UA) (Negative) mg/dL Urine Ketones (Negative) mg/dL Urine Blood (Negative) Urine Nitrite (Negative) Urine Bilirubin (Negative) Urine Urobilinogen (<2.0) mg/dL Ur Leukocyte Esterase (Negative) Urine WBC (Auto) (0.0-6.0) /HPF Urine RBC (Auto) (0.0-6.0) /HPF Urine Mucus /HPF Urine Opiates Screen Urine Methadone Screen Ur Barbiturates Screen Ur Phencyclidine Scrn Ur Amphetamines Screen U Benzodiazepines Scrn Urine Cocaine Screen U Marijuana (THC) Screen Drugs of Abuse Note Plasma/Serum Alcohol (0-0.07) % 02/18/22 02/18/22 02/18/22 Range/Units 21:02 21:02 21:02 WBC (4.5-11.0) K/mm3 RBC (3.65-5.03) M/mm3 Hgb (11.8-15.2) gm/dl Hct (35.5-45.6) % MCV (84-94) fl MCH (28-32) pg MCHC (32-34) % RDW (13.2-15.2) % Plt Count (140-440) K/mm3 Lymph % (Auto) (13.4-35.0) % Rice % (Auto) (0.0-7.3) % Eos % (Auto) (0.0-4.3) % Baso % (Auto) (0.0-1.8) % Lymph # (Auto) (1.2-5.4) K/mm3 Rice # (Auto) (0.0-0.8) K/mm3 Eos # (Auto) (0.0-0.4) K/mm3 Baso # (Auto) (0.0-0.1) K/mm3 Seg Neutrophils % (40.0-70.0) % Seg Neutrophils # (1.8-7.7) K/mm3 PT (12.2-14.9) Sec. INR (0.87-1.13) ABG pH (7.350-7.450) pH Units ABG pCO2 mm Hg ABG pO2 (80.0-90.0) mm Hg ABG HCO3 (20.0-26.0) mmol/L ABG O2 Saturation (95.0-99.0) % ABG O2 Content (0.0-44) ABG Base Excess (-2.0-3.0) mmol/L ABG Hemoglobin (14.0-18.0) gm/dl ABG Carboxyhemoglobin (0.0-5.0) % ABG Methemoglobin (0.0-1.5) % Oxyhemoglobin (95.0-99.0) % FiO2 % Sodium 138 (137-145) mmol/L Potassium 5.1 H (3.6-5.0) mmol/L Chloride 100.6 (98-107) mmol/L Carbon Dioxide 28 (22-30) mmol/L Anion Gap 15 mmol/L BUN 16 (9-20) mg/dL Creatinine 0.9 (0.8-1.3) mg/dL Estimated GFR > 60 ml/min BUN/Creatinine Ratio 18 % Glucose 102 H (75-100) mg/dL POC Glucose (70-105) mg/dL Lactic Acid 1.20 (0.7-2.0) mmol/L Calcium 8.5 (8.4-10.2) mg/dL Total Bilirubin 0.50 (0.1-1.2) mg/dL AST 48 H (5-40) units/L ALT 64 H (7-56) units/L Alkaline Phosphatase 88 (35-129) units/L Ammonia (25-60) umol/L Troponin T < 0.010 (0.00-0.029) ng/mL Total Protein 7.2 (6.3-8.2) g/dL Albumin 2.7 L (3.9-5) g/dL Albumin/Globulin Ratio 0.6 % Urine Color (Yellow) Urine Turbidity (Clear) Urine pH (5.0-7.0) Ur Specific [place] (1.003-1.030) Urine Protein (Negative) mg/dL Urine Glucose (UA) (Negative) mg/dL Urine Ketones (Negative) mg/dL Urine Blood (Negative) Urine Nitrite (Negative) Urine Bilirubin (Negative) Urine Urobilinogen (<2.0) mg/dL Ur Leukocyte Esterase (Negative) Urine WBC (Auto) (0.0-6.0) /HPF Urine RBC (Auto) (0.0-6.0) /HPF Urine Mucus /HPF Urine Opiates Screen Urine Methadone Screen Ur Barbiturates Screen Ur Phencyclidine Scrn Ur Amphetamines Screen U Benzodiazepines Scrn Urine Cocaine Screen U Marijuana (THC) Screen Drugs of Abuse Note Plasma/Serum Alcohol < 0.01 (0-0.07) % 02/18/22 02/18/22 02/18/22 Range/Units 22:45 23:22 Unknown WBC (4.5-11.0) K/mm3 RBC (3.65-5.03) M/mm3 Hgb (11.8-15.2) gm/dl Hct (35.5-45.6) % MCV (84-94) fl MCH (28-32) pg MCHC (32-34) % RDW (13.2-15.2) % Plt Count (140-440) K/mm3 Lymph % (Auto) (13.4-35.0) % Rice % (Auto) (0.0-7.3) % Eos % (Auto) (0.0-4.3) % Baso % (Auto) (0.0-1.8) % Lymph # (Auto) (1.2-5.4) K/mm3 Rice # (Auto) (0.0-0.8) K/mm3 Eos # (Auto) (0.0-0.4) K/mm3 Baso # (Auto) (0.0-0.1) K/mm3 Seg Neutrophils % (40.0-70.0) % Seg Neutrophils # (1.8-7.7) K/mm3 PT (12.2-14.9) Sec. INR (0.87-1.13) ABG pH 7.444 (7.350-7.450) pH Units ABG pCO2 42.4 mm Hg ABG pO2 55.6 L (80.0-90.0) mm Hg ABG HCO3 28.4 H (20.0-26.0) mmol/L ABG O2 Saturation 91.5 L (95.0-99.0) % ABG O2 Content 16.6 (0.0-44) ABG Base Excess 3.8 H (-2.0-3.0) mmol/L ABG Hemoglobin 13.2 L (14.0-18.0) gm/dl ABG Carboxyhemoglobin 1.3 (0.0-5.0) % ABG Methemoglobin 0.7 (0.0-1.5) % Oxyhemoglobin 89.6 L (95.0-99.0) % FiO2 21 % Sodium (137-145) mmol/L Potassium (3.6-5.0) mmol/L Chloride (98-107) mmol/L Carbon Dioxide (22-30) mmol/L Anion Gap mmol/L BUN (9-20) mg/dL Creatinine (0.8-1.3) mg/dL Estimated GFR ml/min BUN/Creatinine Ratio % Glucose (75-100) mg/dL POC Glucose (70-105) mg/dL Lactic Acid (0.7-2.0) mmol/L Calcium (8.4-10.2) mg/dL Total Bilirubin (0.1-1.2) mg/dL AST (5-40) units/L ALT (7-56) units/L Alkaline Phosphatase (35-129) units/L Ammonia 14.0 L (25-60) umol/L Troponin T (0.00-0.029) ng/mL Total Protein (6.3-8.2) g/dL Albumin (3.9-5) g/dL Albumin/Globulin Ratio % Urine Color Dark yellow (Yellow) Urine Turbidity Clear (Clear) Urine pH 7.0 (5.0-7.0) Ur Specific [place] 1.015 (1.003-1.030) Urine Protein <15 mg/dl (Negative) mg/dL Urine Glucose (UA) Negative (Negative) mg/dL Urine Ketones Negative (Negative) mg/dL Urine Blood Trace (Negative) Urine Nitrite Negative (Negative) Urine Bilirubin Negative (Negative) Urine Urobilinogen < 2.0 (<2.0) mg/dL Ur Leukocyte Esterase Negative (Negative) Urine WBC (Auto) 2.0 (0.0-6.0) /HPF Urine RBC (Auto) 9.0 (0.0-6.0) /HPF Urine Mucus Few /HPF Urine Opiates Screen Urine Methadone Screen Ur Barbiturates Screen Ur Phencyclidine Scrn Ur Amphetamines Screen U Benzodiazepines Scrn Urine Cocaine Screen U Marijuana (THC) Screen Drugs of Abuse Note Plasma/Serum Alcohol (0-0.07) % 02/18/22 Range/Units Unknown WBC (4.5-11.0) K/mm3 RBC (3.65-5.03) M/mm3 Hgb (11.8-15.2) gm/dl Hct (35.5-45.6) % MCV (84-94) fl MCH (28-32) pg MCHC (32-34) % RDW (13.2-15.2) % Plt Count (140-440) K/mm3 Lymph % (Auto) (13.4-35.0) % Rice % (Auto) (0.0-7.3) % Eos % (Auto) (0.0-4.3) % Baso % (Auto) (0.0-1.8) % Lymph # (Auto) (1.2-5.4) K/mm3 Rice # (Auto) (0.0-0.8) K/mm3 Eos # (Auto) (0.0-0.4) K/mm3 Baso # (Auto) (0.0-0.1) K/mm3 Seg Neutrophils % (40.0-70.0) % Seg Neutrophils # (1.8-7.7) K/mm3 PT (12.2-14.9) Sec. INR (0.87-1.13) ABG pH (7.350-7.450) pH Units ABG pCO2 mm Hg ABG pO2 (80.0-90.0) mm Hg ABG HCO3 (20.0-26.0) mmol/L ABG O2 Saturation (95.0-99.0) % ABG O2 Content (0.0-44) ABG Base Excess (-2.0-3.0) mmol/L ABG Hemoglobin (14.0-18.0) gm/dl ABG Carboxyhemoglobin (0.0-5.0) % ABG Methemoglobin (0.0-1.5) % Oxyhemoglobin (95.0-99.0) % FiO2 % Sodium (137-145) mmol/L Potassium (3.6-5.0) mmol/L Chloride (98-107) mmol/L Carbon Dioxide (22-30) mmol/L Anion Gap mmol/L BUN (9-20) mg/dL Creatinine (0.8-1.3) mg/dL Estimated GFR ml/min BUN/Creatinine Ratio % Glucose (75-100) mg/dL POC Glucose (70-105) mg/dL Lactic Acid (0.7-2.0) mmol/L Calcium (8.4-10.2) mg/dL Total Bilirubin (0.1-1.2) mg/dL AST (5-40) units/L ALT (7-56) units/L Alkaline Phosphatase (35-129) units/L Ammonia (25-60) umol/L Troponin T (0.00-0.029) ng/mL Total Protein (6.3-8.2) g/dL Albumin (3.9-5) g/dL Albumin/Globulin Ratio % Urine Color (Yellow) Urine Turbidity (Clear) Urine pH (5.0-7.0) Ur Specific [place] (1.003-1.030) Urine Protein (Negative) mg/dL Urine Glucose (UA) (Negative) mg/dL Urine Ketones (Negative) mg/dL Urine Blood (Negative) Urine Nitrite (Negative) Urine Bilirubin (Negative) Urine Urobilinogen (<2.0) mg/dL Ur Leukocyte Esterase (Negative) Urine WBC (Auto) (0.0-6.0) /HPF Urine RBC (Auto) (0.0-6.0) /HPF Urine Mucus /HPF Urine Opiates Screen Negative Urine Methadone Screen Negative Ur Barbiturates Screen Negative Ur Phencyclidine Scrn Negative Ur Amphetamines Screen Negative U Benzodiazepines Scrn Negative Urine Cocaine Screen Negative U Marijuana (THC) Screen Negative Drugs of Abuse Note Disclamer Plasma/Serum Alcohol (0-0.07) % - EKG Data -: EKG Interpreted by Me (Incomplete left bundle branch block) EKG shows normal: sinus rhythm, ST-T waves (No STEMI) Rate: tachycardia (104) When compared to previous EKG there are: changes noted - Radiology Data Radiology results: report reviewed CHEST 1 VIEW 02/18/2022 8:51 PM INDICATION / CLINICAL INFORMATION: Altered Mental Status. COMPARISON: 01/29/2022 FINDINGS: SUPPORT DEVICES: None. HEART / MEDIASTINUM: No significant abnormality. LUNGS / PLEURA: Elevation right hemidiaphragm right lower lung atelectasis and effusion. Mild increased pulmonary vascularity No pneumothorax. CTA CHEST WITH CONTRAST INDICATION / CLINICAL INFORMATION: Altered mental status, hypoxia, abnormal chest x-ray. TECHNIQUE: Axial CT images were obtained through the chest after injection of 100 cc Omnipaque 300 IV contrast. 3 plane MIP and/or 3D reconstructions were produced. All CT scans at this location are performed using CT dose reduction for ALARA by means of automated exposure control. COMPARISON: One view of the chest performed today. CTA chest performed on 10/07/2017. FINDINGS: PULMONARY EMBOLUS: None. THORACIC AORTA: No significant abnormality. HEART: No significant abnormality. CORONARY ARTERY CALCIFICATION: Absent -- None. MEDIASTINUM / NAM: Multiple mildly enlarged/shotty mediastinal nodes are seen, including a left paratracheal node on image 37 of series 2 measuring 1 cm in short axis dimension. There is a suspected mass involving the right main bronchus and encasing the right lower lobe bronchial segment with associated obstruction measuring approximately 2.0 x 1.3 cm transaxially on image 46 of series 2. No other significant abnormality. PLEURA: No pleural effusion. No pneumothorax. LUNGS: Atelectasis is noted along the majority of the right lower lobe. Posteriorly along the left lower lobe is a solid noncalcified nodule measuring 1.1 x 1.0 cm. No other significant abnormality. ADDITIONAL FINDINGS: None. UPPER ABDOMEN: No acute findings. SKELETAL STRUCTURES: No acute abnormality or aggressive appearing osseous lesion. There is mild spondylosis. IMPRESSION: 1. No CT evidence for pulmonary embolism. 2. 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 CT HEAD WITHOUT CONTRAST INDICATION / CLINICAL INFORMATION: ams. TECHNIQUE: All CT scans at this location are performed using CT dose reduction for ALARA by means of automated exposure control. COMPARISON: CT head without contrast from 01/29/2022. FINDINGS: Motion artifact limits this study. BRAIN PARENCHYMA: No acute intracranial hemorrhage. No evidence of recent infarct. No mass effect or midline shift. Probable chronic microvascular ischemic changes are noted along with similar right parietal lobe encephalomalacia, likely related to remote infarct. VENTRICULAR SYSTEM/EXTRA-AXIAL SPACES: There is similar ventricular enlargement without other acute ventricular findings. No extra-axial fluid collection. ORBITS: Normal as visualized. SKELETAL SYSTEM/SOFT TISSUES: Normal bones and soft tissues. PARANASAL SINUSES/MASTOID AIR CELLS: No significant abnormality. ADDITIONAL FINDINGS: None. IMPRESSION: 1. No acute intracranial abnormality. No significant interval changes. - Medical Decision Making 61-year-old male who is nonverbal secondary to mental retardation and Down syndrome presents from residential with deterioration in baseline mental status and physical ability. ED work-up reveals mild hypoxia on room air and suspected bronchogenic carcinoma with obstruction of the bronchus. It is unclear why patient is mental status has further deteriorated at this point based on ED evaluation. Case discussed with hospitalist for admission. Consultation with boilermaker welder ordered. 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 Patient may also require a social sciences chair consult for proper dispo planning if patient requires additional and total care Critical Care Time: No Critical care attestation.: If time is entered above; I have spent that time in minutes in the direct care of this critically ill patient, excluding procedure time. ED Disposition Clinical Impression: Mental retardation, Down syndrome, Nonverbal, Lung mass, Altered mental status, Hypoxia, Bronchial obstruction Disposition: ADMITTED INPATIENT Is pt being admited?: Yes Condition: Stable Time of Disposition: 01:54 (Dr. Wu)
[2022-02-18 22:40] LABS: Basophils # (Auto) 0.1 K/mm3 (0.0-0.1); Basophils % (Auto) 0.8 % (0.0-1.8); Eosinophils % (Auto) 0.4 % (0.0-4.3); Hematocrit 39.9 % (35.5-45.6); Hemoglobin 13.5 gm/dl (11.8-15.2); Lymphocytes # (Auto) 1.3 K/mm3 (1.2-5.4); Lymphocytes % (Auto) 13.4 % (13.4-35.0); Mean Corpuscular HGB Conc 34 % (32-34); Mean Corpuscular Volume 101 fl (84-94); Monocytes # (Auto) 1.2 K/mm3 (0.0-0.8); Monocytes % (Auto) 12.4 % (0.0-7.3); Platelet Count 242 K/mm3 (140-440); Red Blood Count 3.94 M/mm3 (3.65-5.03); Red Cell Distribution Width 16.1 % (13.2-15.2)
[2022-02-18 22:51] LABS: INR 1.2 (0.87-1.13)
[2022-02-18 22:52] LABS: Alanine Aminotransferase 64 units/L (7-56); Albumin 2.7 g/dL (3.9-5); BUN/Creatinine Ratio 18; Blood Urea Nitrogen 16 mg/dL (9-20); Calcium 8.5 mg/dL (8.4-10.2); Hemolysis Index 29
[2022-02-18 23:10] LABS: ABG Base Excess 3.8 mmol/L (-2.0-3.0); ABG HCO3 28.4 mmol/L (20.0-26.0); ABG Methemoglobin 0.7 % (0.0-1.5); ABG Oxygen Saturation 91.5 % (95.0-99.0); ABG PCO2 42.4 mm Hg; ABG PH 7.444 pH Units (7.350-7.450); ABG PO2 55.6 mm Hg (80.0-90.0)
--- NOTE | 2022-02-19 01:01 | Cat Scan Report ---
CTA CHEST WITH CONTRAST INDICATION / CLINICAL INFORMATION: Altered mental status, hypoxia, abnormal chest x-ray. TECHNIQUE: Axial CT images were obtained through the chest after injection of 100 cc Omnipaque 300 IV contrast. 3 plane MIP and/or 3D reconstructions were produced. All CT scans at this location are per formed using CT dose reduction for ALARA by means of automated exposure control. COMPARISON: One view of the chest performed today. CTA chest performed on 10/07/2017. FINDINGS: PULMONARY EMBOLUS: None. THORACIC AORTA: No significant abnormality. HEART: No significant abnormality. CORONARY ARTERY CALCIFICATION: Absent -- None. MEDIASTINUM / NAM: Multiple mildly enlarged/shotty mediastinal nodes are seen, including a left para tracheal node on image 37 of series 2 measuring 1 cm in short axis dimension. There is a suspected ma ss involving the right main bronchus and encasing the right lower lobe bronchial segment with associa gladys obstruction measuring approximately 2.0 x 1.3 cm transaxially on image 46 of series 2. No other s ignificant abnormality. PLEURA: No pleural effusion. No pneumothorax. LUNGS: Atelectasis is noted along the majority of the right lower lobe. Posteriorly along the left lo wer lobe is a solid noncalcified nodule measuring 1.1 x 1.0 cm. No other significant abnormality. ADDITIONAL FINDINGS: None. UPPER ABDOMEN: No acute findings. SKELETAL STRUCTURES: No acute abnormality or aggressive appearing osseous lesion. There is mild spond ylosis. IMPRESSION: 1. No CT evidence for pulmonary embolism. 2. Suspected bronchogenic carcinoma with associated obstruction of the right lower lobe proximal bron chial segment, 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 adenopathy and a suspected left lower lobe metastatic nodule. Signer Name: Jesu Gimenez MD Signed: 02/19/2022 12:56 AM Workstation Name: [id number]
--- NOTE | 2022-02-19 01:29 | Cat Scan Report ---
CT HEAD WITHOUT CONTRAST INDICATION / CLINICAL INFORMATION: ams. TECHNIQUE: All CT scans at this location are performed using CT dose reduction for ALARA by means of automated exposure control. COMPARISON: CT head without contrast from 01/29/2022. FINDINGS: Motion artifact limits this study. BRAIN PARENCHYMA: No acute intracranial hemorrhage. No evidence of recent infarct. No mass effect or midline shift. Probable chronic microvascular ischemic changes are noted along with similar right par ietal lobe encephalomalacia, likely related to remote infarct. VENTRICULAR SYSTEM/EXTRA-AXIAL SPACES: There is similar ventricular enlargement without other acute v entricular findings. No extra-axial fluid collection. ORBITS: Normal as visualized. SKELETAL SYSTEM/SOFT TISSUES: Normal bones and soft tissues. PARANASAL SINUSES/MASTOID AIR CELLS: No significant abnormality. ADDITIONAL FINDINGS: None. IMPRESSION: 1. No acute intracranial abnormality. No significant interval changes. Signer Name: Jesu Gimenez MD Signed: 02/19/2022 1:25 AM Workstation Name: [id number]
[2022-02-19] MEDS ORDERED: MAGNESIUM HYDROXIDE (MOM) ORAL LIQD UDC PO PRN (02:02)
[2022-02-19] MEDS ORDERED: ACETAMINOPHEN 325 MG TAB PO PRN (02:02)
[2022-02-19] MEDS ORDERED: MORPHINE 4 MG/1 ML INJ IV PRN (02:02)
[2022-02-19] MEDS ORDERED: ONDANSETRON 4 MG/2 ML INJ IV PRN (02:02)
[2022-02-19] MEDS ORDERED: MORPHINE 2 MG/1 ML INJ IV PRN (02:02)
--- NOTE | 2022-02-19 02:14 | History and Physical Report ---
History of Present Illness Date of examination: 02/19/22 Date of admission: 02/19/2022 Chief complaint: Altered Mental Status History of present illness: 61-year-old male with known history of hypertension, seizure disorder, Down syndrome, hyperlipidemia and history of partial blindness resident of a skilled nursing brought into the emergency room today for evaluation of changes in mental status. Patient was recently admitted in this hospital few weeks ago for seizu re disorder and a UTI. He was subsequently discharged on antibiotics. Upon arrival in the emergency room today patient was having some difficulty breathing and was on nonrebreather upon arrival. Oxygen saturation was in the 80s. Patient unable to give any history at this time. Most of the history was obtained from the ER staff. It is also observed that patient has not been able to perform his ADLs since had recent discharge from the hospital. He was normally able to feed himself and also ambulate. However since his recent discharge from the hospital he has not been able to take care of himself. Work-up in the emergency room today, chest x-ray shows elevation of the right hemidiaphragm, right lower lung atelectasis and effusion. Mild increased pulmonary vascularity, no pneumothorax. CT scan of the head did not show any acute abnormality. CT angiogram of the chest reveals: 1. No CT evidence for pulmonary embolism. 2. 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 Patient being admitted for his changes in mental status, hypoxia and the CT angiogram of the chest findings. Past History Past Medical History: hypertension, hypothyroidism, seizures, other ( MR,DOWN SYNDROME, Hyperlipidemia, Partially blind, syncope) Past Surgical History: No surgical history Social history: no significant social history Family history: no significant family history Medications and Allergies Allergies Allergy/AdvReac Type Severity Reaction Status Date / Time codeine Allergy Unknown Verified 02/18/22 18:32 Home Medications Medication Instructions Recorded Confirmed Last Taken Type Calcium Carbonate/Vitamin D3 1 each PO QAM 10/07/17 02/19/22 1 Day Ago History [Calcium 600-Vit D3 200 Tablet] ~06/05/20 Docusate Sodium [Stool Softener] 100 mg PO DAILY 10/07/17 02/19/22 01/29/22 History Levothyroxine [Synthroid] 25 mcg PO QAM 10/07/17 02/19/22 01/29/22 History Pravastatin [Pravachol] 40 mg PO QHS 10/07/17 02/19/22 01/29/22 History amLODIPine 2.5 mg PO DAILY 10/07/17 02/19/22 1 Day Ago History ~06/05/20 armodafiniL [Armodafinil] 250 mg PO QAM 03/14/19 02/19/22 1 Day Ago History ~06/05/20 Melatonin [Melatonin 5MG CAP] 5 mg PO DAILY 06/06/20 02/19/22 1 Day Ago History ~06/05/20 Methylphenidate [Ritalin] 20 mg PO BID 06/06/20 02/19/22 01/29/22 History Mirabegron [Myrbetriq] 50 mg PO QDAY 06/06/20 02/19/22 1 Day Ago History ~06/05/20 Tamsulosin [Flomax] 0.4 mg PO QDAY 01/30/22 02/19/22 01/29/22 History Famotidine [Pepcid] 20 mg PO BID #60 tablet 02/03/22 02/19/22 Unknown Rx cefUROXime [Ceftin] 2 tab PO Q12H #20 02/03/22 02/19/22 Unknown Rx levETIRAcetam [Keppra TAB] 500 mg PO BID #60 tablet 02/03/22 02/19/22 Unknown Rx Active Meds: Active Medications Acetaminophen (Acetaminophen 325 Mg Tab) 650 mg PO Q4H PRN PRN Reason: Pain MILD(1-3)/Fever >100.5/[place] Heparin Sodium (Porcine) (Heparin 5,000 Unit/1 Ml Vial) 5,000 unit SUB-Q Q8HR [facility] Sodium Chloride (Nacl 0.9% 1000 Ml) 1,000 mls @ 75 mls/hr IV DIRECT [facility] Magnesium Hydroxide (Magnesium Hydroxide (Mom) Oral Liqd Udc) 30 ml PO Q4H PRN PRN Reason: Constipation Morphine Sulfate (Morphine 2 Mg/1 Ml Inj) 2 mg IV Q4H PRN PRN Reason: Pain, Moderate (4-6) Morphine Sulfate (Morphine 4 Mg/1 Ml Inj) 4 mg IV Q4H PRN PRN Reason: Pain , Severe (7-10) Ondansetron HCl (Ondansetron 4 Mg/2 Ml Inj) 4 mg IV Q8H PRN PRN Reason: Nausea And Vomiting Sodium Chloride (Sodium Chloride 0.9% 10 Ml Flush Syringe) 10 ml IV BID [facility] Sodium Chloride (Sodium Chloride 0.9% 10 Ml Flush Syringe) 10 ml IV PRN PRN PRN Reason: LINE FLUSH Review of Systems ROS unobtainable: due to mental status Exam - Constitutional Vitals: Temp Pulse Resp BP Pulse Ox 99.0 F 103 H 15 98/55 92 02/18/22 19:52 02/19/22 01:08 02/19/22 01:08 02/19/22 01:08 02/19/22 01:08 General appearance: Present: no acute distress, well-nourished - EENT Eyes: Present: PERRL, EOM intact. Absent: scleral icterus ENT: hearing intact, clear oral mucosa, dentition normal - Neck Neck: Present: supple, normal ROM - Respiratory Respiratory effort: normal Respiratory: bilateral: diminished - Cardiovascular Rhythm: regular Heart Sounds: Present: S1 & S2. Absent: gallop, systolic murmur, diastolic murmur, rub, click - Extremities Extremities: no ischemia, pulses intact, pulses symmetrical, No edema, normal temperature, Full ROM Peripheral Pulses: within normal limits - Abdominal General gastrointestinal: Present: soft, non-tender, non-distended, normal bowel sounds. Absent: mass - Integumentary Integumentary: Present: clear, warm, dry, normal turgor. Absent: rash - Musculoskeletal Musculoskeletal: strength equal bilaterally - Psychiatric Psychiatric: cooperative - Neurologic Neurologic: other (NonVerbal) HEART Score - HEART Score Troponin: Troponin T < 0.010 ng/mL (0.00-0.029) 02/18/22 21:02 Results - Labs CBC & Chem 7: 02/18/22 21:02 02/18/22 21:02 Labs: Abnormal lab results 02/18/22 02/18/22 02/18/22 Range/Units 19:34 21:02 21:02 MCV 101 H (84-94) fl MCH 34 H (28-32) pg RDW 16.1 H (13.2-15.2) % [place] % (Auto) 12.4 H (0.0-7.3) % [place] # (Auto) 1.2 H (0.0-0.8) K/mm3 Seg Neutrophils % 73.0 H (40.0-70.0) % PT 16.9 H (12.2-14.9) Sec. INR 1.20 H (0.87-1.13) ABG pO2 (80.0-90.0) mm Hg ABG HCO3 (20.0-26.0) mmol/L ABG O2 Saturation (95.0-99.0) % ABG Base Excess (-2.0-3.0) mmol/L ABG Hemoglobin (14.0-18.0) gm/dl Oxyhemoglobin (95.0-99.0) % Potassium (3.6-5.0) mmol/L Glucose (75-100) mg/dL POC Glucose 116 H (70-105) mg/dL AST (5-40) units/L ALT (7-56) units/L Ammonia (25-60) umol/L Albumin (3.9-5) g/dL 02/18/22 02/18/22 02/18/22 Range/Units 21:02 22:45 23:22 MCV (84-94) fl MCH (28-32) pg RDW (13.2-15.2) % [place] % (Auto) (0.0-7.3) % [place] # (Auto) (0.0-0.8) K/mm3 Seg Neutrophils % (40.0-70.0) % PT (12.2-14.9) Sec. INR (0.87-1.13) ABG pO2 55.6 L (80.0-90.0) mm Hg ABG HCO3 28.4 H (20.0-26.0) mmol/L ABG O2 Saturation 91.5 L (95.0-99.0) % ABG Base Excess 3.8 H (-2.0-3.0) mmol/L ABG Hemoglobin 13.2 L (14.0-18.0) gm/dl Oxyhemoglobin 89.6 L (95.0-99.0) % Potassium 5.1 H (3.6-5.0) mmol/L Glucose 102 H (75-100) mg/dL POC Glucose (70-105) mg/dL AST 48 H (5-40) units/L ALT 64 H (7-56) units/L Ammonia 14.0 L (25-60) umol/L Albumin 2.7 L (3.9-5) g/dL Assessment and Plan Assessment: 1.Altered Mental Status 2.Hypoxia 3.Bronchogenic Ca. 4.H/O Seizures Plan: 1.Admit and Monitor on Telemetry 2.Observe seizure perecautions. 3.Pulmonary Consult for evaluation 4.Case management Evaluation for Placement 5.PT/OT- Evaluation DVT Prophylaxis: SQ heparin Code Status: Full Code
[2022-02-19] MEDS: HEPARIN 5,000 UNIT/1 ML VIAL SUB-Q SCH ×3 (06:34→21:47)
[2022-02-19] MEDS: SODIUM CHLORIDE 0.9% 1000 ML 1,000 ML IV SCH ×2 (06:34→21:51)
--- NOTE | 2022-02-19 10:30 | Progress Note ---
Assessment and Plan Assessment and plan: 61-year-old male with known history of hypertension, seizure disorder, Down syndrome, hyperlipidemia and history of partial blindness resident of a retirement brought into the emergency room today for evaluation of changes in mental status. Patient was recently admitted in this hospital few weeks ago for seizure disorder and a UTI. He was subsequently discharged on antibiotics. Upon arrival in the emergency room today patient was having some difficulty breathing and was on nonrebreather upon arrival. Oxygen saturation was in the 80s. It was also observed that patient has not been able to perform his ADLs since had recent discharge from the hospital. He was normally able to feed himself and also ambulate. However since his recent discharge from the hospital he has not been able to take care of himself. CTA of the chest revealed no PE but suspected bronchogenic carcinoma with associated obstruction of the right lower lobe proximal bronchial segment with 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 adenopathy and a suspected left lower lobe metastatic nodule Acute encephalopathy Acute hypoxic respiratory failure Probable bronchogenic CA History of seizure disorder History of Down syndrome Intellectual disability 02/19/2022. Consult pulmonary for further evaluation and possible bronchoscopy. I suspect patient has component of aspiration pneumonia as well. We will obtain a speech therapy evaluation for swallowing and start empiric antibiotics. Continue O2 supplementation to maintain sats greater than 92%. History Interval history: No new issues overnight. Hospitalist Physical - Constitutional Vitals: Temp Pulse Resp BP Pulse Ox 97.7 F 89 18 129/61 95 02/19/22 08:09 02/19/22 08:09 02/19/22 08:09 02/19/22 08:09 02/19/22 08:09 General appearance: Present: no acute distress, well-nourished - EENT Eyes: Present: PERRL, EOM intact ENT: hearing intact, clear oral mucosa, dentition normal - Neck Neck: Present: supple, normal ROM - Respiratory Respiratory effort: normal Respiratory: bilateral: CTA - Cardiovascular Rhythm: regular Heart Sounds: Present: S1 & S2. Absent: gallop, rub - Extremities Extremities: no ischemia, No edema, Full ROM - Abdominal General gastrointestinal: soft, non-tender, non-distended, normal bowel sounds - Integumentary Integumentary: Present: clear, warm, dry - Neurologic Neurologic: CNII-XII intact, moves all extremities HEART Score - HEART Score Troponin: Troponin T < 0.010 ng/mL (0.00-0.029) 02/18/22 21:02 Results - Labs CBC & Chem 7: 02/18/22 21:02 02/18/22 21:02 Labs: Laboratory Last Values WBC 9.8 K/mm3 (4.5-11.0) 02/18/22 21:02 RBC 3.94 M/mm3 (3.65-5.03) 02/18/22 21:02 Hgb 13.5 gm/dl (11.8-15.2) 02/18/22 21:02 Hct 39.9 % (35.5-45.6) 02/18/22 21:02 MCV 101 fl (84-94) H 02/18/22 21:02 MCH 34 pg (28-32) H 02/18/22 21:02 MCHC 34 % (32-34) 02/18/22 21:02 RDW 16.1 % (13.2-15.2) H 02/18/22 21:02 Plt Count 242 K/mm3 (140-440) 02/18/22 21:02 Lymph % (Auto) 13.4 % (13.4-35.0) 02/18/22 21:02 [place] % (Auto) 12.4 % (0.0-7.3) H 02/18/22 21:02 Eos % (Auto) 0.4 % (0.0-4.3) 02/18/22 21:02 Baso % (Auto) 0.8 % (0.0-1.8) 02/18/22 21:02 Lymph # (Auto) 1.3 K/mm3 (1.2-5.4) 02/18/22 21:02 [place] # (Auto) 1.2 K/mm3 (0.0-0.8) H 02/18/22 21:02 Eos # (Auto) 0.0 K/mm3 (0.0-0.4) 02/18/22 21: Baso # (Auto) 0.1 K/mm3 (0.0-0.1) 02/18/22 21:02 Seg Neutrophils % 73.0 % (40.0-70.0) H 02/18/22 21:02 Seg Neutrophils # 7.2 K/mm3 (1.8-7.7) 02/18/22 21:02 PT 16.9 Sec. (12.2-14.9) H 02/18/22 21:02 INR 1.20 (0.87-1.13) H 02/18/22 21:02 ABG pH 7.444 pH Units (7.350-7.450) 02/18/22 22:45 ABG pCO2 42.4 mm Hg 02/18/22 22:45 ABG pO2 55.6 mm Hg (80.0-90.0) L 02/18/22 22:45 ABG HCO3 28.4 mmol/L (20.0-26.0) H 02/18/22 22:45 ABG O2 Saturation 91.5 % (95.0-99.0) L 02/18/22 22:45 ABG O2 Content 16.6 (0.0-44) 02/18/22 22:45 ABG Base Excess 3.8 mmol/L (-2.0-3.0) H 02/18/22 22:45 ABG Hemoglobin 13.2 gm/dl (14.0-18.0) L 02/18/22 22:45 ABG Carboxyhemoglobin 1.3 % (0.0-5.0) 02/18/22 22:45 ABG Methemoglobin 0.7 % (0.0-1.5) 02/18/22 22:45 Oxyhemoglobin 89.6 % (95.0-99.0) L 02/18/22 22:45 FiO2 21 % 02/18/22 22:45 Sodium 138 mmol/L (137-145) 02/18/22 21:02 Potassium 5.1 mmol/L (3.6-5.0) H 02/18/22 21:02 Chloride 100.6 mmol/L (98-107) 02/18/22 21:02 Carbon Dioxide 28 mmol/L (22-30) 02/18/22 21:02 Anion Gap 15 mmol/L 02/18/22 21:02 BUN 16 mg/dL (9-20) 02/18/22 21:02 Creatinine 0.9 mg/dL (0.8-1.3) 02/18/22 21:02 Estimated GFR > 60 ml/min 02/18/22 21:02 BUN/Creatinine Ratio 18 % 02/18/22 21:02 Glucose 102 mg/dL (75-100) H 02/18/22 21:02 POC Glucose 116 mg/dL (70-105) H 02/18/22 19:34 Lactic Acid 1.20 mmol/L (0.7-2.0) 02/18/22 21:02 Calcium 8.5 mg/dL (8.4-10.2) 02/18/22 21:02 Total Bilirubin 0.50 mg/dL (0.1-1.2) 02/18/22 21:02 AST 48 units/L (5-40) H 02/18/22 21:02 ALT 64 units/L (7-56) H 02/18/22 21:02 Alkaline Phosphatase 88 units/L (35-129) 02/18/22 21:02 Ammonia 14.0 umol/L (25-60) L 02/18/22 23:22 Troponin T < 0.010 ng/mL (0.00-0.029) 02/18/22 21:02 Total Protein 7.2 g/dL (6.3-8.2) 02/18/22 21:02 Albumin 2.7 g/dL (3.9-5) L 02/18/22 21:02 Albumin/Globulin Ratio 0.6 % 02/18/22 21:02 Urine Color Dark yellow (Yellow) 02/18/22 Unknown Urine Turbidity Clear (Clear) 02/18/22 Unknown Urine pH 7.0 (5.0-7.0) 02/18/22 Unknown Ur Specific [place] 1.015 (1.003-1.030) 02/18/22 Unknown Urine Protein <15 mg/dl mg/dL (Negative) 02/18/22 Unknown Urine Glucose (UA) Negative mg/dL (Negative) 02/18/22 Unknown Urine Ketones Negative mg/dL (Negative) 02/18/22 Unknown Urine Blood Trace (Negative) 02/18/22 Unknown Urine Nitrite Negative (Negative) 02/18/22 Unknown Urine Bilirubin Negative (Negative) 02/18/22 Unknown Urine Urobilinogen < 2.0 mg/dL (<2.0) 02/18/22 Unknown Ur Leukocyte Esterase Negative (Negative) 02/18/22 Unknown Urine WBC (Auto) 2.0 /HPF (0.0-6.0) 02/18/22 Unknown Urine RBC (Auto) 9.0 /HPF (0.0-6.0) 02/18/22 Unknown Urine Mucus Few /HPF 02/18/22 Unknown Urine Opiates Screen Negative 02/18/22 Unknown Urine Methadone Screen Negative 02/18/22 Unknown Ur Barbiturates Screen Negative 02/18/22 Unknown Ur Phencyclidine Scrn Negative 02/18/22 Unknown Ur Amphetamines Screen Negative 02/18/22 Unknown U Benzodiazepines Scrn Negative 02/18/22 Unknown Urine Cocaine Screen Negative 02/18/22 Unknown U Marijuana (THC) Screen Negative 02/18/22 Unknown Drugs of Abuse Note Disclamer 02/18/22 Unknown Plasma/Serum Alcohol < 0.01 % (0-0.07) 02/18/22 21:02 Horowitz/IV: Voiding Method Condom Catheter Active Medications - Current Medications Current Medications: Generic Name Dose Route Start Last Admin Trade Name Freq PRN Reason Stop Dose Admin Acetaminophen 650 mg 02/19/22 02:02 Acetaminophen 325 Mg Tab PO Q4H PRN Pain MILD(1-3)/Fever >100.5/[place] Heparin Sodium (Porcine) 5,000 unit 02/19/22 06:00 02/19/22 06:34 Heparin 5,000 Unit/1 Ml Vial SUB-Q 5,000 unit Q8HR [facility] Administration Sodium Chloride 1,000 mls @ 75 mls/hr 02/19/22 02:15 02/19/22 06:34 Nacl 0.9% 1000 Ml IV 75 mls/hr DIRECT [facility] Administration Magnesium Hydroxide 30 ml 02/19/22 02:02 Magnesium Hydroxide (Mom) Oral Liqd Udc PO Q4H PRN Constipation Morphine Sulfate 2 mg 02/19/22 02:02 Morphine 2 Mg/1 Ml Inj IV Q4H PRN Pain, Moderate (4-6) Morphine Sulfate 4 mg 02/19/22 02:02 Morphine 4 Mg/1 Ml Inj IV Q4H PRN Pain , Severe (7-10) Ondansetron HCl 4 mg 02/19/22 02:02 Ondansetron 4 Mg/2 Ml Inj IV Q8H PRN Nausea And Vomiting Sodium Chloride 10 ml 02/19/22 10:00 Sodium Chloride 0.9% 10 Ml Flush Syringe IV BID [facility] Sodium Chloride 10 ml 02/19/22 02:02 02/19/22 06:41 Sodium Chloride 0.9% 10 Ml Flush Syringe IV 10 ml PRN PRN Administration LINE FLUSH
[2022-02-19] MEDS ORDERED: cefTRIAXone/NS 1 GM/50 ML 1 GM/50 ML BAG IV SCH (11:00)
[2022-02-19] MEDS: cefTRIAXone/NS 2 GM/100 ML 2 GM/100 ML BAG IV SCH (11:22)
--- NOTE | 2022-02-19 19:04 | Consultation ---
History of Present Illness Consult date: 02/19/22 Requesting physician: APARNA VEE Reason for consult: lung mass History of present illness: 61 y/o male with Down Syndrome, nonverbal, who lives in a long-term, admitted last night with Altered mental state. CXR done showed right lower lobe abnormality so CTA done. Per radiology read, extensive adenopathy with right bronchia mass concerning for bronchogenic carcinoma. Pulmonary consulted for this. Patient not able to provide any history. Past History Past Medical History: hypertension, hypothyroidism, seizures, other ( MR,DOWN SYNDROME, Hyperlipidemia, Partially blind, syncope) Past Surgical History: No surgical history Social history: no significant social history Family history: no significant family history Medications and Allergies Allergies Allergy/AdvReac Type Severity Reaction Status Date / Time codeine Allergy Unknown Verified 02/18/22 18:32 Home Medications Medication Instructions Recorded Confirmed Last Taken Type Calcium Carbonate/Vitamin D3 1 each PO QAM 10/07/17 02/19/22 1 Day Ago History [Calcium 600-Vit D3 200 Tablet] ~06/05/20 Docusate Sodium [Stool Softener] 100 mg PO DAILY 10/07/17 02/19/22 01/29/22 History Levothyroxine [Synthroid] 25 mcg PO QAM 10/07/17 02/19/22 01/29/22 History Pravastatin [Pravachol] 40 mg PO QHS 10/07/17 02/19/22 01/29/22 History amLODIPine 2.5 mg PO DAILY 10/07/17 02/19/22 1 Day Ago History ~06/05/20 armodafiniL [Armodafinil] 250 mg PO QAM 03/14/19 02/19/22 1 Day Ago History ~06/05/20 Melatonin [Melatonin 5MG CAP] 5 mg PO DAILY 06/06/20 02/19/22 1 Day Ago History ~06/05/20 Methylphenidate [Ritalin] 20 mg PO BID 06/06/20 02/19/22 01/29/22 History Mirabegron [Myrbetriq] 50 mg PO QDAY 06/06/20 02/19/22 1 Day Ago History ~06/05/20 Tamsulosin [Flomax] 0.4 mg PO QDAY 01/30/22 02/19/22 01/29/22 History Famotidine [Pepcid] 20 mg PO BID #60 tablet 02/03/22 02/19/22 Unknown Rx cefUROXime [Ceftin] 2 tab PO Q12H #20 02/03/22 02/19/22 Unknown Rx levETIRAcetam [Keppra TAB] 500 mg PO BID #60 tablet 02/03/22 02/19/22 Unknown Rx Active Meds: Active Medications Acetaminophen (Acetaminophen 325 Mg Tab) 650 mg PO Q4H PRN PRN Reason: Pain MILD(1-3)/Fever >100.5/[place] Heparin Sodium (Porcine) (Heparin 5,000 Unit/1 Ml Vial) 5,000 unit SUB-Q Q8HR [facility] Last Admin: 02/19/22 18:41 Dose: 5,000 unit Sodium Chloride (Nacl 0.9% 1000 Ml) 1,000 mls @ 75 mls/hr IV DIRECT [facility] Last Admin: 02/19/22 06:34 Dose: 75 mls/hr Ceftriaxone Sodium (Rocephin/Ns 2 Gm/100 Ml) 2 gm in 100 mls @ 200 mls/hr IV Q24H [facility] Last Admin: 02/19/22 11:22 Dose: 200 mls/hr Magnesium Hydroxide (Magnesium Hydroxide (Mom) Oral Liqd Udc) 30 ml PO Q4H PRN PRN Reason: Constipation Morphine Sulfate (Morphine 2 Mg/1 Ml Inj) 2 mg IV Q4H PRN PRN Reason: Pain, Moderate (4-6) Morphine Sulfate (Morphine 4 Mg/1 Ml Inj) 4 mg IV Q4H PRN PRN Reason: Pain , Severe (7-10) Ondansetron HCl (Ondansetron 4 Mg/2 Ml Inj) 4 mg IV Q8H PRN PRN Reason: Nausea And Vomiting Sodium Chloride (Sodium Chloride 0.9% 10 Ml Flush Syringe) 10 ml IV BID [facility] Last Admin: 02/19/22 11:23 Dose: Not Given Sodium Chloride (Sodium Chloride 0.9% 10 Ml Flush Syringe) 10 ml IV PRN PRN PRN Reason: LINE FLUSH Last Admin: 02/19/22 06:41 Dose: 10 ml Physical Examination Vital signs: Vital Signs Temp Pulse Resp BP Pulse Ox 99.4 F 95 H 16 118/84 98 02/18/22 18:27 02/18/22 18:27 02/18/22 18:27 02/18/22 18:27 02/18/22 18:27 Results - Laboratory Findings CBC and BMP: 02/18/22 21:02 02/18/22 21:02 ABG ABG pH 7.444 pH Units (7.350-7.450) 02/18/22 22:45 ABG pCO2 42.4 mm Hg 02/18/22 22:45 ABG pO2 55.6 mm Hg (80.0-90.0) L 02/18/22 22:45 ABG O2 Saturation 91.5 % (95.0-99.0) L 02/18/22 22:45 PT/INR, D-dimer PT 16.9 Sec. (12.2-14.9) H 02/18/22 21:02 INR 1.20 (0.87-1.13) H 02/18/22 21:02 Abnormal lab findings: Abnormal Labs 02/18/22 02/18/22 02/18/22 19:34 21:02 21:02 MCV 101 H MCH 34 H RDW 16.1 H [place] % (Auto) 12.4 H [place] # (Auto) 1.2 H Seg Neutrophils % 73.0 H PT 16.9 H INR 1.20 H ABG pO2 ABG HCO3 ABG O2 Saturation ABG Base Excess ABG Hemoglobin Oxyhemoglobin Potassium Glucose POC Glucose 116 H AST ALT Ammonia Albumin 02/18/22 02/18/22 02/18/22 21:02 22:45 23:22 MCV MCH RDW [place] % (Auto) [place] # (Auto) Seg Neutrophils % PT INR ABG pO2 55.6 L ABG HCO3 28.4 H ABG O2 Saturation 91.5 L ABG Base Excess 3.8 H ABG Hemoglobin 13.2 L Oxyhemoglobin 89.6 L Potassium 5.1 H Glucose 102 H POC Glucose AST 48 H ALT 64 H Ammonia 14.0 L Albumin 2.7 L - Diagnostic Findings Chest x-ray: report reviewed, image reviewed (I do not agree with radiology read) Assessment and Plan 61 y/o male with abnormal CT of chest. Reviewed admission in the past and of note, patient was recently admitted last month and had a CXR done on the 29 of January that was normal. Given this patient's medical history and the history that I obtained from the nursing staff that at the long-term he was eating solid foods, I suspect that this is aspiration, possibly of a foreign body (most likely food) with atelectasis of the right lower lobe. It is highly unlikely that a mass evolved in size in less than a months time and patient, besides age, has no real risk factors for lung carcinoma. Discussed with the nurse and unfortunately there is no identifiable person that is able to give consent. Bronchoscopy is needed in the case to evaluate to see if lung mass is there vs foreign body, but at this time not able to do. In the meanwhile will recommend the following. 1. Will order CPT with neb therapy 3x daily 2. Suggest maybe NT suctioning q shift. May use nasal trumpet, however do not leave this device in the patient 3. Aspiration precautions 4. Consider speech eval to assess swallowing. Will continue to follow.
[2022-02-20] MEDS: ALBUTEROL 2.5 MG/3 ML NEBU IH SCH ×3 (00:37→15:58)
[2022-02-20 06:22] LABS: Basophils # (Auto) 0.1 K/mm3 (0.0-0.1); Basophils % (Auto) 0.8 % (0.0-1.8); Eosinophils % (Auto) 0.2 % (0.0-4.3); Hematocrit 39.4 % (35.5-45.6); Hemoglobin 12.7 gm/dl (11.8-15.2); Lymphocytes # (Auto) 0.6 K/mm3 (1.2-5.4); Lymphocytes % (Auto) 5.5 % (13.4-35.0); Mean Corpuscular HGB Conc 32 % (32-34); Mean Corpuscular Volume 103 fl (84-94); Monocytes # (Auto) 1.4 K/mm3 (0.0-0.8); Monocytes % (Auto) 12.1 % (0.0-7.3); Platelet Count 203 K/mm3 (140-440); Red Blood Count 3.82 M/mm3 (3.65-5.03); Red Cell Distribution Width 16.5 % (13.2-15.2)
[2022-02-20 06:44] LABS: BUN/Creatinine Ratio 18; Blood Urea Nitrogen 14 mg/dL (9-20); Calcium 8.2 mg/dL (8.4-10.2); Hemolysis Index 3
[2022-02-20] MEDS: HEPARIN 5,000 UNIT/1 ML VIAL SUB-Q SCH ×3 (07:30→22:58)
[2022-02-20] MEDS: cefTRIAXone/NS 2 GM/100 ML 2 GM/100 ML BAG IV SCH (10:01)
--- NOTE | 2022-02-20 10:51 | Progress Note ---
Assessment and Plan Assessment and plan: 61-year-old male with known history of hypertension, seizure disorder, Down syndrome, hyperlipidemia and history of partial blindness resident of a [facility] brought into the emergency room today for evaluation of changes in mental status. Patient was recently admitted in this hospital few weeks ago for seizure disorder and a UTI. He was subsequently discharged on antibiotics. Upon arrival in the emergency room today patient was having some difficulty breathing and was on nonrebreather upon arrival. Oxygen saturation was in the 80s. It was also observed that patient has not been able to perform his ADLs since had recent discharge from the hospital. He was normally able to feed himself and also ambulate. However since his recent discharge from the hospital he has not been able to take care of himself. CTA of the chest revealed no PE but suspected bronchogenic carcinoma with associated obstruction of the right lower lobe proximal bronchial segment with 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 adenopathy and a suspected left lower lobe metastatic nodule Acute encephalopathy Acute hypoxic respiratory failure Probable bronchogenic CA History of seizure disorder History of Down syndrome Intellectual disability 02/19/2022. Consult pulmonary for further evaluation and possible bronchoscopy. I suspect patient has component of aspiration pneumonia as well. We will obtain a speech therapy evaluation for swallowing and start empiric antibiotics. Continue O2 supplementation to maintain sats greater than 92%. 02/20/2022. Pulmonary feels that the abnormality seen on CT scan is highly unlikely for a mass given negative chest x-ray 1 month ago and no risk factors. Etiology is likely secondary to aspiration from possibly a foreign body most likely food with atelectasis of the right lower lobe. Bronchoscopy is needed in the case to evaluate to see if lung mass is there vs foreign body, but at this time not able to do because no identifiable person that is able to give consent. Continue aspiration precautions and continue speech therapy evaluation for swallowing. Keep n.p.o. for now History Interval history: No new issues overnight. Hospitalist Physical - Constitutional Vitals: Temp Pulse Resp BP Pulse Ox 98.4 F 107 H 20 114/61 96 02/20/22 08:14 02/20/22 08:14 02/20/22 08:14 02/20/22 08:14 02/20/22 08:14 General appearance: Present: no acute distress, well-nourished - EENT Eyes: Present: PERRL, EOM intact ENT: hearing intact, clear oral mucosa, dentition normal - Neck Neck: Present: supple, normal ROM - Respiratory Respiratory effort: normal Respiratory: bilateral: CTA - Cardiovascular Rhythm: regular Heart Sounds: Present: S1 & S2. Absent: gallop, rub - Extremities Extremities: no ischemia, No edema, Full ROM - Abdominal General gastrointestinal: soft, non-tender, non-distended, normal bowel sounds - Integumentary Integumentary: Present: clear, warm, dry - Neurologic Neurologic: CNII-XII intact, moves all extremities HEART Score - HEART Score Troponin: Troponin T < 0.010 ng/mL (0.00-0.029) 02/18/22 21:02 Results - Labs CBC & Chem 7: 02/20/22 04:59 02/20/22 04:59 Labs: Laboratory Last Values WBC 11.4 K/mm3 (4.5-11.0) H 02/20/22 04:59 RBC 3.82 M/mm3 (3.65-5.03) 02/20/22 04:59 Hgb 12.7 gm/dl (11.8-15.2) 02/20/22 04:59 Hct 39.4 % (35.5-45.6) 02/20/22 04:59 MCV 103 fl (84-94) H 02/20/22 04:59 MCH 33 pg (28-32) H 02/20/22 04:59 MCHC 32 % (32-34) 02/20/22 04:59 RDW 16.5 % (13.2-15.2) H 02/20/22 04:59 Plt Count 203 K/mm3 (140-440) 02/20/22 04:59 Lymph % (Auto) 5.5 % (13.4-35.0) L 02/20/22 04:59 [place] % (Auto) 12.1 % (0.0-7.3) H 02/20/22 04:59 Eos % (Auto) 0.2 % (0.0-4.3) 02/20/22 04:59 Baso % (Auto) 0.8 % (0.0-1.8) 02/20/22 04:59 Lymph # (Auto) 0.6 K/mm3 (1.2-5.4) L 02/20/22 04:59 [place] # (Auto) 1.4 K/mm3 (0.0-0.8) H 02/20/22 04:59 Eos # (Auto) 0.0 K/mm3 (0.0-0.4) 02/20/22 04:59 Baso # (Auto) 0.1 K/mm3 (0.0-0.1) 02/20/22 04:59 Seg Neutrophils % 81.4 % (40.0-70.0) H 02/20/22 04:59 Seg Neutrophils # 9.2 K/mm3 (1.8-7.7) H 02/20/22 04:59 PT 16.9 Sec. (12.2-14.9) H 02/18/22 21:02 INR 1.20 (0.87-1.13) H 02/18/22 21:02 ABG pH 7.444 pH Units (7.350-7.450) 02/18/22 22:45 ABG pCO2 42.4 mm Hg 02/18/22 22:45 ABG pO2 55.6 mm Hg (80.0-90.0) L 02/18/22 22:45 ABG HCO3 28.4 mmol/L (20.0-26.0) H 02/18/22 22:45 ABG O2 Saturation 91.5 % (95.0-99.0) L 02/18/22 22:45 ABG O2 Content 16.6 (0.0-44) 02/18/22 22:45 ABG Base Excess 3.8 mmol/L (-2.0-3.0) H 02/18/22 22:45 ABG Hemoglobin 13.2 gm/dl (14.0-18.0) L 02/18/22 22:45 ABG Carboxyhemoglobin 1.3 % (0.0-5.0) 02/18/22 22:45 ABG Methemoglobin 0.7 % (0.0-1.5) 02/18/22 22:45 Oxyhemoglobin 89.6 % (95.0-99.0) L 02/18/22 22:45 FiO2 21 % 02/18/22 22:45 Sodium 141 mmol/L (137-145) 02/20/22 04:59 Potassium 4.3 mmol/L (3.6-5.0) 02/20/22 04:59 Chloride 104.0 mmol/L (98-107) 02/20/22 04:59 Carbon Dioxide 24 mmol/L (22-30) 02/20/22 04:59 Anion Gap 17 mmol/L 02/20/22 04:59 BUN 14 mg/dL (9-20) 02/20/22 04:59 Creatinine 0.8 mg/dL (0.8-1.3) 02/20/22 04:59 Estimated GFR > 60 ml/min 02/20/22 04:59 BUN/Creatinine Ratio 18 % 02/20/22 04:59 Glucose 91 mg/dL (75-100) 02/20/22 04:59 POC Glucose 116 mg/dL (70-105) H 02/18/22 19:34 Lactic Acid 1.20 mmol/L (0.7-2.0) 02/18/22 21:02 Calcium 8.2 mg/dL (8.4-10.2) L 02/20/22 04:59 Total Bilirubin 0.50 mg/dL (0.1-1.2) 02/18/22 21:02 AST 48 units/L (5-40) H 02/18/22 21:02 ALT 64 units/L (7-56) H 02/18/22 21:02 Alkaline Phosphatase 88 units/L (35-129) 02/18/22 21:02 Ammonia 14.0 umol/L (25-60) L 02/18/22 23:22 Troponin T < 0.010 ng/mL (0.00-0.029) 02/18/22 21:02 Total Protein 7.2 g/dL (6.3-8.2) 02/18/22 21:02 Albumin 2.7 g/dL (3.9-5) L 02/18/22 21:02 Albumin/Globulin Ratio 0.6 % 02/18/22 21:02 Urine Color Dark yellow (Yellow) 02/18/22 Unknown Urine Turbidity Clear (Clear) 02/18/22 Unknown Urine pH 7.0 (5.0-7.0) 02/18/22 Unknown Ur Specific [place] 1.015 (1.003-1.030) 02/18/22 Unknown Urine Protein <15 mg/dl mg/dL (Negative) 02/18/22 Unknown Urine Glucose (UA) Negative mg/dL (Negative) 02/18/22 Unknown Urine Ketones Negative mg/dL (Negative) 02/18/22 Unknown Urine Blood Trace (Negative) 02/18/22 Unknown Urine Nitrite Negative (Negative) 02/18/22 Unknown Urine Bilirubin Negative (Negative) 02/18/22 Unknown Urine Urobilinogen < 2.0 mg/dL (<2.0) 02/18/22 Unknown Ur Leukocyte Esterase Negative (Negative) 02/18/22 Unknown Urine WBC (Auto) 2.0 /HPF (0.0-6.0) 02/18/22 Unknown Urine RBC (Auto) 9.0 /HPF (0.0-6.0) 02/18/22 Unknown Urine Mucus Few /HPF 02/18/22 Unknown Urine Opiates Screen Negative 02/18/22 Unknown Urine Methadone Screen Negative 02/18/22 Unknown Ur Barbiturates Screen Negative 02/18/22 Unknown Ur Phencyclidine Scrn Negative 02/18/22 Unknown Ur Amphetamines Screen Negative 02/18/22 Unknown U Benzodiazepines Scrn Negative 02/18/22 Unknown Urine Cocaine Screen Negative 02/18/22 Unknown U Marijuana (THC) Screen Negative 02/18/22 Unknown Drugs of Abuse Note Disclamer 02/18/22 Unknown Plasma/Serum Alcohol < 0.01 % (0-0.07) 02/18/22 21:02 Horowitz/IV: Voiding Method Condom Catheter Active Medications - Current Medications Current Medications: Generic Name Dose Route Start Last Admin Trade Name Freq PRN Reason Stop Dose Admin Acetaminophen 650 mg 02/19/22 02:02 Acetaminophen 325 Mg Tab PO Q4H PRN Pain MILD(1-3)/Fever >100.5/[place] Albuterol 2.5 mg 02/20/22 00:00 02/20/22 08:14 Albuterol 2.5 Mg/3 Ml Nebu IH 2.5 mg Q8HRT LAZARUS Administration Heparin Sodium (Porcine) 5,000 unit 02/19/22 06:00 02/20/22 07:30 Heparin 5,000 Unit/1 Ml Vial SUB-Q 5,000 unit Q8HR LAZARUS Administration Sodium Chloride 1,000 mls @ 75 mls/hr 02/19/22 02:15 02/19/22 21:51 Nacl 0.9% 1000 Ml IV 75 mls/hr DIRECT LAZARUS Administration Ceftriaxone Sodium 2 gm in 100 mls @ 200 mls/hr 02/19/22 11:00 02/20/22 10:01 Rocephin/Ns 2 Gm/100 Ml IV 200 mls/hr Q24H LAZARUS Administration Magnesium Hydroxide 30 ml 02/19/22 02:02 Magnesium Hydroxide (Mom) Oral Liqd Udc PO Q4H PRN Constipation Morphine Sulfate 2 mg 02/19/22 02:02 Morphine 2 Mg/1 Ml Inj IV Q4H PRN Pain, Moderate (4-6) Morphine Sulfate 4 mg 02/19/22 02:02 Morphine 4 Mg/1 Ml Inj IV Q4H PRN Pain , Severe (7-10) Ondansetron HCl 4 mg 02/19/22 02:02 Ondansetron 4 Mg/2 Ml Inj IV Q8H PRN Nausea And Vomiting Sodium Chloride 10 ml 02/19/22 10:00 02/20/22 10:01 Sodium Chloride 0.9% 10 Ml Flush Syringe IV 10 ml BID LAZARUS Administration Sodium Chloride 10 ml 02/19/22 02:02 02/19/22 06:41 Sodium Chloride 0.9% 10 Ml Flush Syringe IV 10 ml PRN PRN Administration LINE FLUSH Nutrition/Malnutrition Assess - Dietary Evaluation Nutrition/Malnutrition Findings: Nutrition Notes Start: 02/19/22 14:29 Freq: Status: Active Protocol: Document 02/19/22 14:29 TIERRA (Rec: 02/19/22 14:55 TIERRA [id number]) Nutrition Notes 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 Current Diet Pureed Diet (from D 02/19). Labs/Tests 02/19: K 5.1, Glu 102. Pertinent Medications 02/19: Nutritionally unremarkable. 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 Weight Status Appropriate Subjective/Other Information RD consult for skin risk and risk of malnutrition assessments. No reports available on Pt's PO intake of meals at the time , will assess at F/U. Pt is on Nasal Cannula, O2 saturation @ 94%, according to Physical Assessment Histoiry notes. CONSTRUCTION TECH note on 02/19/22 11:59: Swallowing evaluation has been conducted. Patient is safe for a pureed diet with thin liquids. Will follow to ensure continued safety for two days. - END OF NOTE. Pt has missing teeth, according to Physical Assessment Histoiry notes. Pt has recently show a diminished capability to perform his ADLs, ambulate, and feed himself, according to History & Physical notes. Pt shows sacral decubitus stage I-II ulcer as sign of concern for skin risk at the time, according to Physical Assessment Histoiry notes. Pt shows no signs of concern for risk of malnutrition at the time, according to Physical Assessment Histoiry notes. Percent of energy/protein needs met: Prescribed Pureed Diet provides for energy/protein needs (1,804 Kcal/77 g) during LOS. Burn Absent Trauma Absent GI Symptoms None Difficulty In Swallowing Food Allergy No Skin Integrity/Comment Sacral decubitus stage I-II ulcer. Minimum of two criteria No Fluid Accumulation N/A Reduced Celery Stripper Strength N/A (non-severe) Protein-Calorie Malnutrition N\A #1 Nutrition Diagnosis Swallowing difficulty Etiology Possibly Encephalopathy. As Evidenced by Signs and Symptoms CONSTRUCTION TECH note on 02/19/22 11:59: Swallowing evaluation has been conducted. Patient is safe for a pureed diet with thin liquids. Will follow to ensure continued safety for two days. - END OF NOTE. Is patient on ventilator? No Is Patient Ambulatory and/or Out of Bed No REE-([facility]-confined to bed) 1559.472 Kcal/Kg value to use for calculation 22 Approximate Energy Requirements Using 1331 kcal/Kg Calculation Used for Recommendations Kcal/kg Additional Notes Protein: 0.8-1 g/Kg ABW; 49-61 g/day. Fluids: 1 ml/Kcal, or as per MD. Nutrition Intervention Change Diet Order: Continue Pureed Diet as tolerated. Goal #1 Facilitate PO intake of meals with elemental, textural, or mechanical modification during LOS. Follow-Up By: 02/26/22 Additional Comments Continue monitoring food tolerance, %PO intake of meals , and BM.
--- NOTE | 2022-02-20 11:02 | Progress Note ---
Assessment and Plan 61 y/o male with abnormal CT of chest. 02/20/22: Saw speech while on the floor. Would like patient to be NPO now. Discussed with nurse on floor and with IMS. John way as yesterday. Would benefit from bronch if able to get consent as this is not emergent. Continue CPT and q shift NT suctioning. Reviewed admission in the past and of note, patient was recently admitted last month and had a CXR done on the 29 of January that was normal. Given this patient's medical history and the history that I obtained from the nursing staff that at the longterm he was eating solid foods, I suspect that this is aspiration, possibly of a foreign body (most likely food) with atelectasis of the right lower lobe. It is highly unlikely that a mass evolved in size in less than a months time and patient, besides age, has no real risk factors for lung carcinoma. Discussed with the nurse and unfortunately there is no identifiable person that is able to give consent. Bronchoscopy is needed in the case to evaluate to see if lung mass is there vs foreign body, but at this time not able to do. In the meanwhile will recommend the following. 1. Will order CPT with neb therapy 3x daily 2. Suggest maybe NT suctioning q shift. May use nasal trumpet, however do not leave this device in the patient 3. Aspiration precautions 4. Consider speech eval to assess swallowing. Will continue to follow. Subjective Date of service: 02/20/22 Interval history: Tolerating CPT with nebs and NT suctioning with removal of thick creamy secretions per rt note. Still no new news on guardianship/consent signing. Objective Vital Signs - 12hr 02/19/22 02/20/22 02/20/22 23:05 00:20 00:37 Temperature 98.4 F Pulse Rate 108 H Pulse Rate [ 79 Bilateral Throughout] Respiratory 20 Rate Respiratory 22 Rate [Bilateral Throughout] Blood Pressure 147/69 O2 Sat by Pulse 90 94 Oximetry 02/20/22 02/20/22 02/20/22 03:23 03:24 08:14 Temperature 97.8 F 98.4 F Pulse Rate 111 H 99 H Pulse Rate [ 107 H Bilateral Throughout] Respiratory 20 18 Rate Respiratory 20 Rate [Bilateral Throughout] Blood Pressure 129/72 114/61 O2 Sat by Pulse 89 90 96 Oximetry CBC and BMP: 02/20/22 04:59 08/04/22 04:59 ABG, PT/INR, D-dimer: ABG ABG pH 7.444 pH Units (7.350-7.450) 02/18/22 22:45 ABG pCO2 42.4 mm Hg 02/18/22 22:45 ABG pO2 55.6 mm Hg (80.0-90.0) L 02/18/22 22:45 ABG O2 Saturation 91.5 % (95.0-99.0) L 02/18/22 22:45 PT/INR, D-dimer PT 16.9 Sec. (12.2-14.9) H 02/18/22 21:02 INR 1.20 (0.87-1.13) H 02/18/22 21:02 Abnormal lab findings: Abnormal Labs 02/18/22 02/18/22 02/18/22 19:34 21:02 21:02 WBC MCV 101 H MCH 34 H RDW 16.1 H Lymph % (Auto) [place] % (Auto) 12.4 H Lymph # (Auto) [place] # (Auto) 1.2 H Seg Neutrophils % 73.0 H Seg Neutrophils # PT 16.9 H INR 1.20 H ABG pO2 ABG HCO3 ABG O2 Saturation ABG Base Excess ABG Hemoglobin Oxyhemoglobin Potassium Glucose POC Glucose 116 H Calcium AST ALT Ammonia Albumin 02/18/22 02/18/22 02/18/22 21:02 22:45 23:22 WBC MCV MCH RDW Lymph % (Auto) [place] % (Auto) Lymph # (Auto) [place] # (Auto) Seg Neutrophils % Seg Neutrophils # PT INR ABG pO2 55.6 L ABG HCO3 28.4 H ABG O2 Saturation 91.5 L ABG Base Excess 3.8 H ABG Hemoglobin 13.2 L Oxyhemoglobin 89.6 L Potassium 5.1 H Glucose 102 H POC Glucose Calcium AST 48 H ALT 64 H Ammonia 14.0 L Albumin 2.7 L 02/20/22 02/20/22 04:59 04:59 WBC 11.4 H MCV 103 H MCH 33 H RDW 16.5 H Lymph % (Auto) 5.5 L [place] % (Auto) 12.1 H Lymph # (Auto) 0.6 L [place] # (Auto) 1.4 H Seg Neutrophils % 81.4 H Seg Neutrophils # 9.2 H PT INR ABG pO2 ABG HCO3 ABG O2 Saturation ABG Base Excess ABG Hemoglobin Oxyhemoglobin Potassium Glucose POC Glucose Calcium 8.2 L AST ALT Ammonia Albumin
--- NOTE | 2022-02-20 18:19 | Electrocardiograph Report ---
[facility] Test Date: 2022-02-18 Test Time: 20:51:27 Pat Name: WILBERT RATLIFF Department: Room: A467 1 Gender: M [employer] Representatives: TREY : 1960 Requested By: CHRISTI BAEZ Order Number: [id number] Reading MD: Bridger Uriostegui Measurements Intervals [place] Rate: 104 P: 41 [place]: 120 QRS: 9 QRSD: 114 T: 85 QT: 348 QTc: 457 Interpretive Statements Sinus tachycardia Left bundle branch block No previous ECG available for comparison Electronically Signed On 02-20-2022 18:19:19 EDT by Bridger Uriostegui
[2022-02-20] MEDS ORDERED: hydrALAZINE 20 MG/1 ML INJ IV PRN (19:44)
[2022-02-20] MEDS ORDERED: ACETAMINOPHEN 650 MG RECT SUPP PR PRN (20:10)
[2022-02-21] MEDS: ALBUTEROL 2.5 MG/3 ML NEBU IH SCH ×3 (00:49→15:48)
[2022-02-21] MEDS: SODIUM CHLORIDE 0.9% 1000 ML 1,000 ML IV SCH ×2 (02:45→02:46)
[2022-02-21] MEDS: HEPARIN 5,000 UNIT/1 ML VIAL SUB-Q SCH ×3 (05:55→21:34)
--- NOTE | 2022-02-21 09:55 | Progress Note ---
Assessment and Plan Assessment and plan: 61-year-old male with known history of hypertension, seizure disorder, Down syndrome, hyperlipidemia and history of partial blindness resident of a prison brought into the emergency room today for evaluation of changes in mental status. Patient was recently admitted in this hospital few weeks ago for seizure disorder and a UTI. He was subsequently discharged on antibiotics. Upon arrival in the emergency room today patient was having some difficulty breathing and was on nonrebreather upon arrival. Oxygen saturation was in the 80s. It was also observed that patient has not been able to perform his ADLs since had recent discharge from the hospital. He was normally able to feed himself and also ambulate. However since his recent discharge from the hospital he has not been able to take care of himself. CTA of the chest revealed no PE but suspected bronchogenic carcinoma with associated obstruction of the right lower lobe proximal bronchial segment with 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 adenopathy and a suspected left lower lobe metastatic nodule Acute encephalopathy Acute hypoxic respiratory failure Aspiration Probable bronchogenic CA History of seizure disorder History of Down syndrome Intellectual disability 02/19/2022. Consult pulmonary for further evaluation and possible bronchoscopy. I suspect patient has component of aspiration pneumonia as well. We will obtain a speech therapy evaluation for swallowing and start empiric antibiotics. Continue O2 supplementation to maintain sats greater than 92%. 02/20/2022. Pulmonary feels that the abnormality seen on CT scan is highly unlikely for a mass given negative chest x-ray 1 month ago and no risk factors. Etiology is likely secondary to aspiration from possibly a foreign body most likely food with atelectasis of the right lower lobe. Bronchoscopy is needed in the case to evaluate to see if lung mass is there vs foreign body, but at this time not able to do because no identifiable person that is able to give consent. Continue aspiration precautions and continue speech therapy evaluation for swallowing. Keep n.p.o. for now 02/21/2022. Patient remains NPO. Consider DHT placement. Follow-up with speech therapy evaluation. Pulmonology to consider bronchoscopy if able to obtain consent. Continue IV antibiotics for aspiration pneumonia History Interval history: No new issues overnight. Hospitalist Physical - Constitutional Vitals: Temp Pulse Resp BP Pulse Ox 98.1 F 114 H 20 116/77 91 02/21/22 08:28 02/21/22 09:39 02/21/22 09:39 02/21/22 08:28 02/21/22 09:46 General appearance: Present: no acute distress, well-nourished - EENT Eyes: Present: PERRL, EOM intact ENT: hearing intact, clear oral mucosa, dentition normal - Neck Neck: Present: supple, normal ROM - Respiratory Respiratory effort: normal Respiratory: bilateral: CTA - Cardiovascular Rhythm: regular Heart Sounds: Present: S1 & S2. Absent: gallop, rub - Extremities Extremities: no ischemia, No edema, Full ROM - Abdominal General gastrointestinal: soft, non-tender, non-distended, normal bowel sounds - Integumentary Integumentary: Present: clear, warm, dry - Neurologic Neurologic: CNII-XII intact, moves all extremities HEART Score - HEART Score Troponin: Troponin T < 0.010 ng/mL (0.00-0.029) 02/18/22 21:02 Results - Labs CBC & Chem 7: 02/20/22 04:59 02/20/22 04:59 Labs: Laboratory Last Values WBC 11.4 K/mm3 (4.5-11.0) H 02/20/22 04:59 RBC 3.82 M/mm3 (3.65-5.03) 02/20/22 04:59 Hgb 12.7 gm/dl (11.8-15.2) 02/20/22 04:59 Hct 39.4 % (35.5-45.6) 02/20/22 04:59 MCV 103 fl (84-94) H 02/20/22 04:59 MCH 33 pg (28-32) H 02/20/22 04:59 MCHC 32 % (32-34) 02/20/22 04:59 RDW 16.5 % (13.2-15.2) H 02/20/22 04:59 Plt Count 203 K/mm3 (140-440) 02/20/22 04:59 Lymph % (Auto) 5.5 % (13.4-35.0) L 02/20/22 04:59 [place] % (Auto) 12.1 % (0.0-7.3) H 02/20/22 04:59 Eos % (Auto) 0.2 % (0.0-4.3) 02/20/22 04:59 Baso % (Auto) 0.8 % (0.0-1.8) 02/20/22 04:59 Lymph # (Auto) 0.6 K/mm3 (1.2-5.4) L 02/20/22 04:59 [place] # (Auto) 1.4 K/mm3 (0.0-0.8) H 02/20/22 04:59 Eos # (Auto) 0.0 K/mm3 (0.0-0.4) 02/20/22 04:59 Baso # (Auto) 0.1 K/mm3 (0.0-0.1) 02/20/22 04:59 Seg Neutrophils % 81.4 % (40.0-70.0) H 02/20/22 04:59 Seg Neutrophils # 9.2 K/mm3 (1.8-7.7) H 02/20/22 04:59 PT 16.9 Sec. (12.2-14.9) H 02/18/22 21:02 INR 1.20 (0.87-1.13) H 02/18/22 21:02 ABG pH 7.444 pH Units (7.350-7.450) 02/18/22 22:45 ABG pCO2 42.4 mm Hg 02/18/22 22:45 ABG pO2 55.6 mm Hg (80.0-90.0) L 02/18/22 22:45 ABG HCO3 28.4 mmol/L (20.0-26.0) H 02/18/22 22:45 ABG O2 Saturation 91.5 % (95.0-99.0) L 02/18/22 22:45 ABG O2 Content 16.6 (0.0-44) 02/18/22 22:45 ABG Base Excess 3.8 mmol/L (-2.0-3.0) H 02/18/22 22:45 ABG Hemoglobin 13.2 gm/dl (14.0-18.0) L 02/18/22 22:45 ABG Carboxyhemoglobin 1.3 % (0.0-5.0) 02/18/22 22:45 ABG Methemoglobin 0.7 % (0.0-1.5) 02/18/22 22:45 Oxyhemoglobin 89.6 % (95.0-99.0) L 02/18/22 22:45 FiO2 21 % 02/18/22 22:45 Sodium 141 mmol/L (137-145) 02/20/22 04:59 Potassium 4.3 mmol/L (3.6-5.0) 02/20/22 04:59 Chloride 104.0 mmol/L (98-107) 02/20/22 04:59 Carbon Dioxide 24 mmol/L (22-30) 02/20/22 04:59 Anion Gap 17 mmol/L 02/20/22 04:59 BUN 14 mg/dL (9-20) 02/20/22 04:59 Creatinine 0.8 mg/dL (0.8-1.3) 02/20/22 04:59 Estimated GFR > 60 ml/min 02/20/22 04:59 BUN/Creatinine Ratio 18 % 02/20/22 04:59 Glucose 91 mg/dL (75-100) 02/20/22 04:59 POC Glucose 97 mg/dL (70-105) 02/20/22 11:35 Lactic Acid 1.20 mmol/L (0.7-2.0) 02/18/22 21:02 Calcium 8.2 mg/dL (8.4-10.2) L 02/20/22 04:59 Total Bilirubin 0.50 mg/dL (0.1-1.2) 02/18/22 21:02 AST 48 units/L (5-40) H 02/18/22 21:02 ALT 64 units/L (7-56) H 02/18/22 21:02 Alkaline Phosphatase 88 units/L (35-129) 02/18/22 21:02 Ammonia 14.0 umol/L (25-60) L 02/18/22 23:22 Troponin T < 0.010 ng/mL (0.00-0.029) 02/18/22 21:02 Total Protein 7.2 g/dL (6.3-8.2) 02/18/22 21:02 Albumin 2.7 g/dL (3.9-5) L 02/18/22 21:02 Albumin/Globulin Ratio 0.6 % 02/18/22 21:02 Urine Color Dark yellow (Yellow) 02/18/22 Unknown Urine Turbidity Clear (Clear) 02/18/22 Unknown Urine pH 7.0 (5.0-7.0) 02/18/22 Unknown Ur Specific [place] 1.015 (1.003-1.030) 02/18/22 Unknown Urine Protein <15 mg/dl mg/dL (Negative) 02/18/22 Unknown Urine Glucose (UA) Negative mg/dL (Negative) 02/18/22 Unknown Urine Ketones Negative mg/dL (Negative) 02/18/22 Unknown Urine Blood Trace (Negative) 02/18/22 Unknown Urine Nitrite Negative (Negative) 02/18/22 Unknown Urine Bilirubin Negative (Negative) 02/18/22 Unknown Urine Urobilinogen < 2.0 mg/dL (<2.0) 02/18/22 Unknown Ur Leukocyte Esterase Negative (Negative) 02/18/22 Unknown Urine WBC (Auto) 2.0 /HPF (0.0-6.0) 02/18/22 Unknown Urine RBC (Auto) 9.0 /HPF (0.0-6.0) 02/18/22 Unknown Urine Mucus Few /HPF 02/18/22 Unknown Urine Opiates Screen Negative 02/18/22 Unknown Urine Methadone Screen Negative 02/18/22 Unknown Ur Barbiturates Screen Negative 02/18/22 Unknown Ur Phencyclidine Scrn Negative 02/18/22 Unknown Ur Amphetamines Screen Negative 02/18/22 Unknown U Benzodiazepines Scrn Negative 02/18/22 Unknown Urine Cocaine Screen Negative 02/18/22 Unknown U Marijuana (THC) Screen Negative 02/18/22 Unknown Drugs of Abuse Note Disclamer 02/18/22 Unknown Plasma/Serum Alcohol < 0.01 % (0-0.07) 02/18/22 21:02 Horowitz/IV: Voiding Method Condom Catheter Active Medications - Current Medications Current Medications: Generic Name Dose Route Start Last Admin Trade Name Freq PRN Reason Stop Dose Admin Acetaminophen 650 mg 02/20/22 20:10 02/20/22 20:21 Acetaminophen 650 Mg Rect Supp SD 650 mg Q4H PRN Administration Pain, Mild (1-3) Albuterol 2.5 mg 02/20/22 00:00 02/21/22 09:39 Albuterol 2.5 Mg/3 Ml Nebu IH 2.5 mg Q8HRT LAZARUS Administration Amlodipine Besylate 2.5 mg 02/21/22 10:00 Amlodipine 5 Mg Tab PO DAILY LAZARUS Heparin Sodium (Porcine) 5,000 unit 02/19/22 06:00 02/21/22 05:55 Heparin 5,000 Unit/1 Ml Vial SUB-Q 5,000 unit Q8HR LAZARUS Administration Hydralazine HCl 10 mg 02/20/22 19:44 Hydralazine 20 Mg/1 Ml Inj IV Q6H PRN Hypertension Sodium Chloride 1,000 mls @ 75 mls/hr 02/19/22 02:15 02/21/22 02:46 Nacl 0.9% 1000 Ml IV 75 mls/hr DIRECT LAZARUS Administration Ceftriaxone Sodium 2 gm in 100 mls @ 200 mls/hr 02/19/22 11:00 02/20/22 10:01 Rocephin/Ns 2 Gm/100 Ml IV 200 mls/hr Q24H LAZARUS Administration Magnesium Hydroxide 30 ml 02/19/22 02:02 Magnesium Hydroxide (Mom) Oral Liqd Udc PO Q4H PRN Constipation Morphine Sulfate 2 mg 02/19/22 02:02 Morphine 2 Mg/1 Ml Inj IV Q4H PRN Pain, Moderate (4-6) Morphine Sulfate 4 mg 02/19/22 02:02 Morphine 4 Mg/1 Ml Inj IV Q4H PRN Pain , Severe (7-10) Ondansetron HCl 4 mg 02/19/22 02:02 Ondansetron 4 Mg/2 Ml Inj IV Q8H PRN Nausea And Vomiting Sodium Chloride 10 ml 02/19/22 10:00 02/20/22 23:04 Sodium Chloride 0.9% 10 Ml Flush Syringe IV 10 ml BID LAZARUS Administration Sodium Chloride 10 ml 02/19/22 02:02 02/19/22 06:41 Sodium Chloride 0.9% 10 Ml Flush Syringe IV 10 ml PRN PRN Administration LINE FLUSH Nutrition/Malnutrition Assess - Dietary Evaluation Nutrition/Malnutrition Findings: Nutrition Notes Start: 02/19/22 14:29 Freq: Status: Active Protocol: Document 02/19/22 14:29 TIERRA (Rec: 02/19/22 14:55 TIERRA [id number]) Nutrition Notes Need for Assessment generated from: fringe maker,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 Current Diet Pureed Diet (from D 02/19). Labs/Tests 02/19: K 5.1, Glu 102. Pertinent Medications 02/19: Nutritionally unremarkable. 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 Weight Status Appropriate Subjective/Other Information RD consult for skin risk and risk of malnutrition assessments. No reports available on Pt's PO intake of meals at the time , will assess at F/U. Pt is on Nasal Cannula, O2 saturation @ 94%, according to Physical Assessment Histoiry notes. CLOTH REELER note on 02/19/22 11:59: Swallowing evaluation has been conducted. Patient is safe for a pureed diet with thin liquids. Will follow to ensure continued safety for two days. - END OF NOTE. Pt has missing teeth, according to Physical Assessment Histoiry notes. Pt has recently show a diminished capability to perform his ADLs, ambulate, and feed himself, according to History & Physical notes. Pt shows sacral decubitus stage I-II ulcer as sign of concern for skin risk at the time, according to Physical Assessment Histoiry notes. Pt shows no signs of concern for risk of malnutrition at the time, according to Physical Assessment Histoiry notes. Percent of energy/protein needs met: Prescribed Pureed Diet provides for energy/protein needs (1,804 Kcal/77 g) during LOS. Burn Absent Trauma Absent GI Symptoms None Difficulty In Swallowing Food Allergy No Skin Integrity/Comment Sacral decubitus stage I-II ulcer. Minimum of two criteria No Fluid Accumulation N/A Reduced Tobacco Curer Strength N/A (non-severe) Protein-Calorie Malnutrition N\A #1 Nutrition Diagnosis Swallowing difficulty Etiology Possibly Encephalopathy. As Evidenced by Signs and Symptoms CLOTH REELER note on 02/19/22 11:59: Swallowing evaluation has been conducted. Patient is safe for a pureed diet with thin liquids. Will follow to ensure continued safety for two days. - END OF NOTE. Is patient on ventilator? No Is Patient Ambulatory and/or Out of Bed No REE-([facility]-confined to bed) 1559.472 Kcal/Kg value to use for calculation 22 Approximate Energy Requirements Using 1331 kcal/Kg Calculation Used for Recommendations Kcal/kg Additional Notes Protein: 0.8-1 g/Kg ABW; 49-61 g/day. Fluids: 1 ml/Kcal, or as per Nutrition Intervention Change Diet Order: Continue Pureed Diet as tolerated. Goal #1 Facilitate PO intake of meals with elemental, textural, or mechanical modification during LOS. Follow-Up By: 02/26/22 Additional Comments Continue monitoring food tolerance, %PO intake of meals , and BM.
[2022-02-21] MEDS: amLODIPine 5 MG TAB PO SCH (10:30)
[2022-02-21] MEDS: cefTRIAXone/NS 2 GM/100 ML 2 GM/100 ML BAG IV SCH (10:33)
--- NOTE | 2022-02-21 13:51 | Progress Note ---
Assessment and Plan 61 y/o male with abnormal CT of chest. 02/21/22: No new pulm recs for today. Please obtain repeat CXR likely on Thursday. If patient happens to get worse, likely not a candidate for bipap given his weak cough and mental state and inability to communicate. If worsens and requires intubation, will bronch then under emergent circumstances if no POA or family is able to be located. Continue CPT. Will discuss with RT about NT suctioning. 02/20/22: Saw speech while on the floor. Would like patient to be NPO now. Discussed with nurse on floor and with IMS. Same recs pulm way as yesterday. Would benefit from bronch if able to get consent as this is not emergent. Continue CPT and q shift NT suctioning. Reviewed admission in the past and of note, patient was recently admitted last month and had a CXR done on the 29 of January that was normal. Given this patient's medical history and the history that I obtained from the nursing staff that at the [facility] he was eating solid foods, I suspect that this is aspiration, possibly of a foreign body (most likely food) with atelectasis of the right lower lobe. It is highly unlikely that a mass evolved in size in less than a months time and patient, besides age, has no real risk factors for lung carcinoma. Discussed with the nurse and unfortunately there is no identifiable person that is able to give consent. Bronchoscopy is needed in the case to evaluate to see if lung mass is there vs foreign body, but at this time not able to do. In the meanwhile will recommend the following. 1. Will order CPT with neb therapy 3x daily 2. Suggest maybe NT suctioning q shift. May use nasal trumpet, however do not leave this device in the patient 3. Aspiration precautions 4. Consider speech eval to assess swallowing. Will continue to follow. Subjective Date of service: 02/21/22 Interval history: Oxygen requirement the same, no worse but not any better. Tolerating CPT. It does appear he is getting NT suction at least once daily but it is ordered for qshift. Objective Vital Signs - 12hr 02/21/22 02/21/22 02/21/22 03:30 04:07 08:28 Temperature 98.6 F 98.1 F Pulse Rate 97 H 99 H 107 H Pulse Rate [ Bilateral Throughout] Respiratory 20 18 Rate Respiratory Rate [Bilateral Throughout] Blood Pressure 139/61 116/77 O2 Sat by Pulse 94 91 Oximetry 02/21/22 02/21/22 02/21/22 09:39 09:46 10:00 Temperature Pulse Rate Pulse Rate [ 114 H Bilateral Throughout] Respiratory Rate Respiratory 20 Rate [Bilateral Throughout] Blood Pressure O2 Sat by Pulse 91 94 Oximetry CBC and BMP: 02/20/22 04:59 02/20/22 04:59 ABG, PT/INR, D-dimer: ABG ABG pH 7.444 pH Units (7.350-7.450) 02/18/22 22:45 ABG pCO2 42.4 mm Hg 02/18/22 22:45 ABG pO2 55.6 mm Hg (80.0-90.0) L 02/18/22 22:45 ABG O2 Saturation 91.5 % (95.0-99.0) L 02/18/22 22:45 PT/INR, D-dimer PT 16.9 Sec. (12.2-14.9) H 02/18/22 21:02 INR 1.20 (0.87-1.13) H 02/18/22 21:02 Abnormal lab findings: Abnormal Labs 02/18/22 02/18/22 02/18/22 19:34 21:02 21:02 WBC MCV 101 H MCH 34 H RDW 16.1 H Lymph % (Auto) [place] % (Auto) 12.4 H Lymph # (Auto) [place] # (Auto) 1.2 H Seg Neutrophils % 73.0 H Seg Neutrophils # PT 16.9 H INR 1.20 H ABG pO2 ABG HCO3 ABG O2 Saturation ABG Base Excess ABG Hemoglobin Oxyhemoglobin Potassium Glucose POC Glucose 116 H Calcium AST ALT Ammonia Albumin 02/18/22 02/18/22 02/18/22 21:02 22:45 23:22 WBC MCV MCH RDW Lymph % (Auto) [place] % (Auto) Lymph # (Auto) [place] # (Auto) Seg Neutrophils % Seg Neutrophils # PT INR ABG pO2 55.6 L ABG HCO3 28.4 H ABG O2 Saturation 91.5 L ABG Base Excess 3.8 H ABG Hemoglobin 13.2 L Oxyhemoglobin 89.6 L Potassium 5.1 H Glucose 102 H POC Glucose Calcium AST 48 H ALT 64 H Ammonia 14.0 L Albumin 2.7 L 02/20/22 02/20/22 04:59 04:59 WBC 11.4 H MCV 103 H MCH 33 H RDW 16.5 H Lymph % (Auto) 5.5 L [place] % (Auto) 12.1 H Lymph # (Auto) 0.6 L [place] # (Auto) 1.4 H Seg Neutrophils % 81.4 H Seg Neutrophils # 9.2 H PT INR ABG pO2 ABG HCO3 ABG O2 Saturation ABG Base Excess ABG Hemoglobin Oxyhemoglobin Potassium Glucose POC Glucose Calcium 8.2 L AST ALT Ammonia Albumin
[2022-02-22] MEDS: ALBUTEROL 2.5 MG/3 ML NEBU IH SCH ×3 (00:50→15:35)
[2022-02-22] MEDS: HEPARIN 5,000 UNIT/1 ML VIAL SUB-Q SCH ×3 (05:58→22:49)
[2022-02-22] MEDS: SODIUM CHLORIDE 0.9% 1000 ML 1,000 ML IV SCH ×2 (05:59→20:11)
--- NOTE | 2022-02-22 09:05 | Progress Note ---
Assessment and Plan - Patient Problems (1) Altered mental status Current Visit: Yes Status: Acute (2) Down syndrome Current Visit: Yes Status: Acute (3) Hypoxia Current Visit: Yes Status: Acute (4) Lung mass Current Visit: Yes Status: Acute (5) Mental retardation Current Visit: Yes Status: Acute (6) Nonverbal Current Visit: Yes Status: Acute (7) Acute encephalopathy Current Visit: No Status: Acute (8) Normal pressure hydrocephalus syndrome Current Visit: No Status: Acute (9) NOY (obstructive sleep apnea) Current Visit: No Status: Acute (10) Respiratory failure Current Visit: No Status: Acute Qualifiers: Chronicity: acute Respiratory failure complication: hypoxia Qualified Code(s): J96.01 - Acute respiratory failure with hypoxia (11) Seizure disorder Current Visit: No Status: Acute Subjective Interval history: pt awake Objective Vital Signs - 12hr 02/21/22 02/22/22 02/22/22 22:00 00:18 00:51 Temperature 99.0 F Pulse Rate 111 H Pulse Rate [ 105 H Bilateral Throughout] Respiratory 20 Rate Respiratory 20 Rate [Bilateral Throughout] Blood Pressure 123/75 O2 Sat by Pulse 94 95 Oximetry 02/22/22 02/22/22 02/22/22 04:23 07:58 07:59 Temperature 98.9 F Pulse Rate 108 H Pulse Rate [ 115 H Bilateral Throughout] Respiratory 20 Rate Respiratory 18 Rate [Bilateral Throughout] Blood Pressure 123/62 O2 Sat by Pulse 93 93 Oximetry Constitutional: no acute distress, other (on o2) Eyes: non-icteric ENT: oropharynx moist Neck: supple Effort: normal Ascultation: Bilateral: diminished breath sounds Cardiovascular: regular rate and rhythm Gastrointestinal: normoactive bowel sounds, soft, non-tender (on o2 vest in place) Integumentary: normal Extremities: no cyanosis Neurologic: other (awake) CBC and BMP: 02/20/22 04:59 02/20/22 04:59 ABG, PT/INR, D-dimer: ABG ABG pH 7.444 pH Units (7.350-7.450) 02/18/22 22:45 ABG pCO2 42.4 mm Hg 02/18/22 22:45 ABG pO2 55.6 mm Hg (80.0-90.0) L 02/18/22 22:45 ABG O2 Saturation 91.5 % (95.0-99.0) L 02/18/22 22:45 PT/INR, D-dimer PT 16.9 Sec. (12.2-14.9) H 02/18/22 21:02 INR 1.20 (0.87-1.13) H 02/18/22 21:02 Abnormal lab findings: Abnormal Labs 02/18/22 02/18/22 02/18/22 19:34 21:02 21:02 WBC MCV 101 H MCH 34 H RDW 16.1 H Lymph % (Auto) [place] % (Auto) 12.4 H Lymph # (Auto) [place] # (Auto) 1.2 H Seg Neutrophils % 73.0 H Seg Neutrophils # PT 16.9 H INR 1.20 H ABG pO2 ABG HCO3 ABG O2 Saturation ABG Base Excess ABG Hemoglobin Oxyhemoglobin Potassium Glucose POC Glucose 116 H Calcium AST ALT Ammonia Albumin 02/18/22 02/18/22 02/18/22 21:02 22:45 23:22 WBC MCV MCH RDW Lymph % (Auto) [place] % (Auto) Lymph # (Auto) [place] # (Auto) Seg Neutrophils % Seg Neutrophils # PT INR ABG pO2 55.6 L ABG HCO3 28.4 H ABG O2 Saturation 91.5 L ABG Base Excess 3.8 H ABG Hemoglobin 13.2 L Oxyhemoglobin 89.6 L Potassium 5.1 H Glucose 102 H POC Glucose Calcium AST 48 H ALT 64 H Ammonia 14.0 L Albumin 2.7 L 02/20/22 02/20/22 04:59 04:59 WBC 11.4 H MCV 103 H MCH 33 H RDW 16.5 H Lymph % (Auto) 5.5 L [place] % (Auto) 12.1 H Lymph # (Auto) 0.6 L [place] # (Auto) 1.4 H Seg Neutrophils % 81.4 H Seg Neutrophils # 9.2 H PT INR ABG pO2 ABG HCO3 ABG O2 Saturation ABG Base Excess ABG Hemoglobin Oxyhemoglobin Potassium Glucose POC Glucose Calcium 8.2 L AST ALT Ammonia Albumin
[2022-02-22] MEDS: amLODIPine 5 MG TAB PO SCH (09:45)
[2022-02-22] MEDS: cefTRIAXone/NS 2 GM/100 ML 2 GM/100 ML BAG IV SCH (10:00)
--- NOTE | 2022-02-22 11:03 | Progress Note ---
Assessment and Plan Assessment and plan: 61-year-old male with known history of hypertension, seizure disorder, Down syndrome, hyperlipidemia and history of partial blindness resident of a [facility] brought into the emergency room today for evaluation of changes in mental status. Patient was recently admitted in this hospital few weeks ago for seizure disorder and a UTI. He was subsequently discharged on antibiotics. Upon arrival in the emergency room today patient was having some difficulty breathing and was on nonrebreather upon arrival. Oxygen saturation was in the 80s. It was also observed that patient has not been able to perform his ADLs since had recent discharge from the hospital. He was normally able to feed himself and also ambulate. However since his recent discharge from the hospital he has not been able to take care of himself. CTA of the chest revealed no PE but suspected bronchogenic carcinoma with associated obstruction of the right lower lobe proximal bronchial segment with 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 adenopathy and a suspected left lower lobe metastatic nodule Acute encephalopathy Acute hypoxic respiratory failure Aspiration Probable bronchogenic CA History of seizure disorder History of Down syndrome Intellectual disability 02/19/2022. Consult pulmonary for further evaluation and possible bronchoscopy. I suspect patient has component of aspiration pneumonia as well. We will obtain a speech therapy evaluation for swallowing and start empiric antibiotics. Continue O2 supplementation to maintain sats greater than 92%. 02/20/2022. Pulmonary feels that the abnormality seen on CT scan is highly unlikely for a mass given negative chest x-ray 1 month ago and no risk factors. Etiology is likely secondary to aspiration from possibly a foreign body most likely food with atelectasis of the right lower lobe. Bronchoscopy is needed in the case to evaluate to see if lung mass is there vs foreign body, but at this time not able to do because no identifiable person that is able to give consent. Continue aspiration precautions and continue speech therapy evaluation for swallowing. Keep n.p.o. for now 02/21/2022. Patient remains NPO. Consider DHT placement. Follow-up with speech therapy evaluation. Pulmonology to consider bronchoscopy if able to obtain consent. Continue IV antibiotics for aspiration pneumonia 02/22/2022. Patient remains NPO. Consider DHT placement. Follow-up with speech therapy evaluation. Pulmonology to consider bronchoscopy if able to obtain consent. Continue IV antibiotics for aspiration pneumonia History Interval history: No new issues overnight. Hospitalist Physical - Constitutional Vitals: Temp Pulse Resp BP Pulse Ox 98.9 F 115 H 18 123/62 93 02/22/22 04:23 02/22/22 07:58 02/22/22 07:58 02/22/22 04:23 02/22/22 07:59 General appearance: Present: no acute distress, well-nourished - EENT Eyes: Present: PERRL, EOM intact ENT: hearing intact, clear oral mucosa, dentition normal - Neck Neck: Present: supple, normal ROM - Respiratory Respiratory effort: normal Respiratory: bilateral: CTA - Cardiovascular Rhythm: regular Heart Sounds: Present: S1 & S2. Absent: gallop, rub - Extremities Extremities: no ischemia, No edema, Full ROM - Abdominal General gastrointestinal: soft, non-tender, non-distended, normal bowel sounds - Integumentary Integumentary: Present: clear, warm, dry - Neurologic Neurologic: CNII-XII intact, moves all extremities HEART Score - HEART Score Troponin: Troponin T < 0.010 ng/mL (0.00-0.029) 02/18/22 21:02 Results - Labs CBC & Chem 7: 02/20/22 04:59 02/20/22 04:59 Labs: Laboratory Last Values WBC 11.4 K/mm3 (4.5-11.0) H 02/20/22 04:59 RBC 3.82 M/mm3 (3.65-5.03) 02/20/22 04:59 Hgb 12.7 gm/dl (11.8-15.2) 02/20/22 04:59 Hct 39.4 % (35.5-45.6) 02/20/22 04:59 MCV 103 fl (84-94) H 02/20/22 04:59 MCH 33 pg (28-32) H 02/20/22 04:59 MCHC 32 % (32-34) 02/20/22 04:59 RDW 16.5 % (13.2-15.2) H 02/20/22 04:59 Plt Count 203 K/mm3 (140-440) 02/20/22 04:59 Lymph % (Auto) 5.5 % (13.4-35.0) L 02/20/22 04:59 Pope % (Auto) 12.1 % (0.0-7.3) H 02/20/22 04:59 Eos % (Auto) 0.2 % (0.0-4.3) 02/20/22 04:59 Baso % (Auto) 0.8 % (0.0-1.8) 02/20/22 04:59 Lymph # (Auto) 0.6 K/mm3 (1.2-5.4) L 02/20/22 04:59 Pope # (Auto) 1.4 K/mm3 (0.0-0.8) H 02/20/22 04:59 Eos # (Auto) 0.0 K/mm3 (0.0-0.4) 02/20/22 04:59 Baso # (Auto) 0.1 K/mm3 (0.0-0.1) 02/20/22 04:59 Seg Neutrophils % 81.4 % (40.0-70.0) H 02/20/22 04:59 Seg Neutrophils # 9.2 K/mm3 (1.8-7.7) H 02/20/22 04:59 PT 16.9 Sec. (12.2-14.9) H 02/18/22 21:02 INR 1.20 (0.87-1.13) H 02/18/22 21:02 ABG pH 7.444 pH Units (7.350-7.450) 02/18/22 22:45 ABG pCO2 42.4 mm Hg 02/18/22 22:45 ABG pO2 55.6 mm Hg (80.0-90.0) L 02/18/22 22:45 ABG HCO3 28.4 mmol/L (20.0-26.0) H 02/18/22 22:45 ABG O2 Saturation 91.5 % (95.0-99.0) L 02/18/22 22:45 ABG O2 Content 16.6 (0.0-44) 02/18/22 22:45 ABG Base Excess 3.8 mmol/L (-2.0-3.0) H 02/18/22 22:45 ABG Hemoglobin 13.2 gm/dl (14.0-18.0) L 02/18/22 22:45 ABG Carboxyhemoglobin 1.3 % (0.0-5.0) 02/18/22 22:45 ABG Methemoglobin 0.7 % (0.0-1.5) 02/18/22 22:45 Oxyhemoglobin 89.6 % (95.0-99.0) L 02/18/22 22:45 FiO2 21 % 02/18/22 22:45 Sodium 141 mmol/L (137-145) 02/20/22 04:59 Potassium 4.3 mmol/L (3.6-5.0) 02/20/22 04:59 Chloride 104.0 mmol/L (98-107) 02/20/22 04:59 Carbon Dioxide 24 mmol/L (22-30) 02/20/22 04:59 Anion Gap 17 mmol/L 02/20/22 04:59 BUN 14 mg/dL (9-20) 02/20/22 04:59 Creatinine 0.8 mg/dL (0.8-1.3) 02/20/22 04:59 Estimated GFR > 60 ml/min 02/20/22 04:59 BUN/Creatinine Ratio 18 % 02/20/22 04:59 Glucose 91 mg/dL (75-100) 02/20/22 04:59 POC Glucose 97 mg/dL (70-105) 02/20/22 11:35 Lactic Acid 1.20 mmol/L (0.7-2.0) 02/18/22 21:02 Calcium 8.2 mg/dL (8.4-10.2) L 02/20/22 04:59 Total Bilirubin 0.50 mg/dL (0.1-1.2) 02/18/22 21:02 AST 48 units/L (5-40) H 02/18/22 21:02 ALT 64 units/L (7-56) H 02/18/22 21:02 Alkaline Phosphatase 88 units/L (35-129) 02/18/22 21:02 Ammonia 14.0 umol/L (25-60) L 02/18/22 23:22 Troponin T < 0.010 ng/mL (0.00-0.029) 02/18/22 21:02 Total Protein 7.2 g/dL (6.3-8.2) 02/18/22 21:02 Albumin 2.7 g/dL (3.9-5) L 02/18/22 21:02 Albumin/Globulin Ratio 0.6 % 02/18/22 21:02 Urine Color Dark yellow (Yellow) 02/18/22 Unknown Urine Turbidity Clear (Clear) 02/18/22 Unknown Urine pH 7.0 (5.0-7.0) 02/18/22 Unknown Ur Specific [place] 1.015 (1.003-1.030) 02/18/22 Unknown Urine Protein <15 mg/dl mg/dL (Negative) 02/18/22 Unknown Urine Glucose (UA) Negative mg/dL (Negative) 02/18/22 Unknown Urine Ketones Negative mg/dL (Negative) 02/18/22 Unknown Urine Blood Trace (Negative) 02/18/22 Unknown Urine Nitrite Negative (Negative) 02/18/22 Unknown Urine Bilirubin Negative (Negative) 02/18/22 Unknown Urine Urobilinogen < 2.0 mg/dL (<2.0) 02/18/22 Unknown Ur Leukocyte Esterase Negative (Negative) 02/18/22 Unknown Urine WBC (Auto) 2.0 /HPF (0.0-6.0) 02/18/22 Unknown Urine RBC (Auto) 9.0 /HPF (0.0-6.0) 02/18/22 Unknown Urine Mucus Few /HPF 02/18/22 Unknown Urine Opiates Screen Negative 02/18/22 Unknown Urine Methadone Screen Negative 02/18/22 Unknown Ur Barbiturates Screen Negative 02/18/22 Unknown Ur Phencyclidine Scrn Negative 02/18/22 Unknown Ur Amphetamines Screen Negative 02/18/22 Unknown U Benzodiazepines Scrn Negative 02/18/22 Unknown Urine Cocaine Screen Negative 02/18/22 Unknown U Marijuana (THC) Screen Negative 02/18/22 Unknown Drugs of Abuse Note Disclamer 02/18/22 Unknown Plasma/Serum Alcohol < 0.01 % (0-0.07) 02/18/22 21:02 Horowitz/IV: Voiding Method Condom Catheter Active Medications - Current Medications Current Medications: Generic Name Dose Route Start Last Admin Trade Name Freq PRN Reason Stop Dose Admin Acetaminophen 650 mg 02/20/22 20:10 02/20/22 20:21 Acetaminophen 650 Mg Rect Supp OK 650 mg Q4H PRN Administration Pain, Mild (1-3) Albuterol 2.5 mg 02/20/22 00:00 02/22/22 07:58 Albuterol 2.5 Mg/3 Ml Nebu IH 2.5 mg Q8HRT LAZARUS Administration Amlodipine Besylate 2.5 mg 02/21/22 10:00 02/22/22 09:45 Amlodipine 5 Mg Tab PO Not Given DAILY LAZARUS Heparin Sodium (Porcine) 5,000 unit 02/19/22 06:00 02/22/22 05:58 Heparin 5,000 Unit/1 Ml Vial SUB-Q 5,000 unit Q8HR LAZARUS Administration Hydralazine HCl 10 mg 02/20/22 19:44 Hydralazine 20 Mg/1 Ml Inj IV Q6H PRN Hypertension Sodium Chloride 1,000 mls @ 75 mls/hr 02/19/22 02:15 02/22/22 05:59 Nacl 0.9% 1000 Ml IV 75 mls/hr DIRECT LAZARUS Administration Ceftriaxone Sodium 2 gm in 100 mls @ 200 mls/hr 02/19/22 11:00 02/22/22 10:00 Rocephin/Ns 2 Gm/100 Ml IV 200 mls/hr Q24H LAZARUS Administration Magnesium Hydroxide 30 ml 02/19/22 02:02 Magnesium Hydroxide (Mom) Oral Liqd Udc PO Q4H PRN Constipation Morphine Sulfate 2 mg 02/19/22 02:02 Morphine 2 Mg/1 Ml Inj IV Q4H PRN Pain, Moderate (4-6) Morphine Sulfate 4 mg 02/19/22 02:02 Morphine 4 Mg/1 Ml Inj IV Q4H PRN Pain , Severe (7-10) Ondansetron HCl 4 mg 02/19/22 02:02 Ondansetron 4 Mg/2 Ml Inj IV Q8H PRN Nausea And Vomiting Sodium Chloride 10 ml 02/19/22 10:00 02/22/22 09:51 Sodium Chloride 0.9% 10 Ml Flush Syringe IV 10 ml BID LAZARUS Administration Sodium Chloride 10 ml 02/19/22 02:02 02/19/22 06:41 Sodium Chloride 0.9% 10 Ml Flush Syringe IV 10 ml PRN PRN Administration LINE FLUSH Nutrition/Malnutrition Assess - Dietary Evaluation Nutrition/Malnutrition Findings: Nutrition Notes Start: 02/19/22 14:29 Freq: Status: Active Protocol: Document 02/19/22 14:29 TIERRA (Rec: 02/19/22 14:55 TIERRA [email or web address]) Nutrition Notes Need for Assessment generated from: talcer,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 Current Diet Pureed Diet (from D 02/19). Labs/Tests 02/19: K 5.1, Glu 102. Pertinent Medications 02/19: Nutritionally unremarkable. 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 Weight Status Appropriate Subjective/Other Information RD consult for skin risk and risk of malnutrition assessments. No reports available on Pt's PO intake of meals at the time , will assess at F/U. Pt is on Nasal Cannula, O2 saturation @ 94%, according to Physical Assessment Histoiry notes. SAND MIXER OPERATOR note on 02/19/22 11:59: Swallowing evaluation has been conducted. Patient is safe for a pureed diet with thin liquids. Will follow to ensure continued safety for two days. - END OF NOTE. Pt has missing teeth, according to Physical Assessment Histoiry notes. Pt has recently show a diminished capability to perform his ADLs, ambulate, and feed himself, according to History & Physical notes. Pt shows sacral decubitus stage I-II ulcer as sign of concern for skin risk at the time, according to Physical Assessment Histoiry notes. Pt shows no signs of concern for risk of malnutrition at the time, according to Physical Assessment Histoiry notes. Percent of energy/protein needs met: Prescribed Pureed Diet provides for energy/protein needs (1,804 Kcal/77 g) during LOS. Burn Absent Trauma Absent GI Symptoms None Difficulty In Swallowing Food Allergy No Skin Integrity/Comment Sacral decubitus stage I-II ulcer. Minimum of two criteria No Fluid Accumulation N/A Reduced Archivist Political History Strength N/A (non-severe) Protein-Calorie Malnutrition N\A #1 Nutrition Diagnosis Swallowing difficulty Etiology Possibly Encephalopathy. As Evidenced by Signs and Symptoms SAND MIXER OPERATOR note on 02/19/22 11:59: Swallowing evaluation has been conducted. Patient is safe for a pureed diet with thin liquids. Will follow to ensure continued safety for two days. - END OF NOTE. Is patient on ventilator? No Is Patient Ambulatory and/or Out of Bed No REE-([facility]-confined to bed) 1559.472 Kcal/Kg value to use for calculation 22 Approximate Energy Requirements Using 1331 kcal/Kg Calculation Used for Recommendations Kcal/kg Additional Notes Protein: 0.8-1 g/Kg ABW; 49-61 g/day. Fluids: 1 ml/Kcal, or as per MD. Nutrition Intervention Change Diet Order: Continue Pureed Diet as tolerated. Goal #1 Facilitate PO intake of meals with elemental, textural, or mechanical modification during LOS. Follow-Up By: 02/26/22 Additional Comments Continue monitoring food tolerance, %PO intake of meals , and BM.
--- NOTE | 2022-02-22 13:00 | XRay Report ---
ABDOMEN 1 VIEW(S) INDICATION / CLINICAL INFORMATION: NG tube placement. COMPARISON: None available. FINDINGS: TUBES / LINES: NG tube tip in the proximal stomach should be advanced another 5 cm. BOWEL GAS PATTERN: No significant abnormality. FREE AIR / EXTRALUMINAL GAS: None seen. ADDITIONAL FINDINGS: No significant additional findings. IMPRESSION: 1. NGT as above. Signer Name: Andre Gordon MD Signed: 02/22/2022 12:56 PM Workstation Name: [id number]
--- NOTE | 2022-02-22 15:27 | XRay Report ---
ABDOMEN 1 VIEW(S) 2:57 PM INDICATION / CLINICAL INFORMATION: verify placement. COMPARISON: Earlier today FINDINGS: TUBES / LINES: Nasogastric tube tip and side-port are within the stomach. BOWEL GAS PATTERN: No significant abnormality. FREE AIR / EXTRALUMINAL GAS: None seen. ADDITIONAL FINDINGS: No significant additional findings. IMPRESSION: 1. NG tube in good position Signer Name: Jewel Fisher MD Signed: 02/22/2022 3:23 PM Workstation Name: [id number]
[2022-02-23] MEDS: ALBUTEROL 2.5 MG/3 ML NEBU IH SCH ×4 (00:44→20:42)
[2022-02-23] MEDS: HEPARIN 5,000 UNIT/1 ML VIAL SUB-Q SCH ×3 (06:48→21:04)
--- NOTE | 2022-02-23 08:44 | Progress Note ---
Assessment and Plan Assessment and plan: 61-year-old male with known history of hypertension, seizure disorder, Down syndrome, hyperlipidemia and history of partial blindness resident of a snf brought into the emergency room today for evaluation of changes in mental status. Patient was recently admitted in this hospital few weeks ago for seizure disorder and a UTI. He was subsequently discharged on antibiotics. Upon arrival in the emergency room today patient was having some difficulty breathing and was on nonrebreather upon arrival. Oxygen saturation was in the 80s. It was also observed that patient has not been able to perform his ADLs since had recent discharge from the hospital. He was normally able to feed himself and also ambulate. However since his recent discharge from the hospital he has not been able to take care of himself. CTA of the chest revealed no PE but suspected bronchogenic carcinoma with associated obstruction of the right lower lobe proximal bronchial segment with 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 adenopathy and a suspected left lower lobe metastatic nodule Acute encephalopathy Acute hypoxic respiratory failure Aspiration Probable bronchogenic CA History of seizure disorder History of Down syndrome Intellectual disability 02/19/2022. Consult pulmonary for further evaluation and possible bronchoscopy. I suspect patient has component of aspiration pneumonia as well. We will obtain a speech therapy evaluation for swallowing and start empiric antibiotics. Continue O2 supplementation to maintain sats greater than 92%. 02/20/2022. Pulmonary feels that the abnormality seen on CT scan is highly unlikely for a mass given negative chest x-ray 1 month ago and no risk factors. Etiology is likely secondary to aspiration from possibly a foreign body most likely food with atelectasis of the right lower lobe. Bronchoscopy is needed in the case to evaluate to see if lung mass is there vs foreign body, but at this time not able to do because no identifiable person that is able to give consent. Continue aspiration precautions and continue speech therapy evaluation for swallowing. Keep n.p.o. for now 02/21/2022. Patient remains NPO. Consider DHT placement. Follow-up with speech therapy evaluation. Pulmonology to consider bronchoscopy if able to obtain consent. Continue IV antibiotics for aspiration pneumonia 02/22/2022. Patient remains NPO. Consider DHT placement. Follow-up with speech therapy evaluation. Pulmonology to consider bronchoscopy if able to obtain consent. Continue IV antibiotics for aspiration pneumonia 02/23/2022. DHT placed yesterday. TF initiated for nutritional support. Patient currently with strict NPO. Aspiration precautions. Pulmonology to consider bronchoscopy if able to obtain consent. Continue IV antibiotics for aspiration pneumonia History Interval history: No new issues overnight. Hospitalist Physical - Constitutional Vitals: Temp Pulse Resp BP Pulse Ox 97.6 F 96 H 20 125/72 91 02/23/22 04:39 02/23/22 04:39 02/23/22 04:39 02/23/22 04:39 02/23/22 04:39 General appearance: Present: no acute distress, well-nourished - EENT Eyes: Present: PERRL, EOM intact ENT: hearing intact, clear oral mucosa, dentition normal - Neck Neck: Present: supple, normal ROM - Respiratory Respiratory effort: normal Respiratory: bilateral: CTA - Cardiovascular Rhythm: regular Heart Sounds: Present: S1 & S2. Absent: gallop, rub - Extremities Extremities: no ischemia, No edema, Full ROM - Abdominal General gastrointestinal: soft, non-tender, non-distended, normal bowel sounds - Integumentary Integumentary: Present: clear, warm, dry - Neurologic Neurologic: CNII-XII intact, moves all extremities HEART Score - HEART Score Troponin: Troponin T < 0.010 ng/mL (0.00-0.029) 02/18/22 21:02 Results - Labs CBC & Chem 7: 02/20/22 04:59 02/20/22 04:59 Labs: Laboratory Last Values WBC 11.4 K/mm3 (4.5-11.0) H 02/20/22 04:59 RBC 3.82 M/mm3 (3.65-5.03) 02/20/22 04:59 Hgb 12.7 gm/dl (11.8-15.2) 02/20/22 04:59 Hct 39.4 % (35.5-45.6) 02/20/22 04:59 MCV 103 fl (84-94) H 02/20/22 04:59 MCH 33 pg (28-32) H 02/20/22 04:59 MCHC 32 % (32-34) 02/20/22 04:59 RDW 16.5 % (13.2-15.2) H 02/20/22 04:59 Plt Count 203 K/mm3 (140-440) 02/20/22 04:59 Lymph % (Auto) 5.5 % (13.4-35.0) L 02/20/22 04:59 [place] % (Auto) 12.1 % (0.0-7.3) H 02/20/22 04:59 Eos % (Auto) 0.2 % (0.0-4.3) 02/20/22 04:59 Baso % (Auto) 0.8 % (0.0-1.8) 02/20/22 04:59 Lymph # (Auto) 0.6 K/mm3 (1.2-5.4) L 02/20/22 04:59 [place] # (Auto) 1.4 K/mm3 (0.0-0.8) H 02/20/22 04:59 Eos # (Auto) 0.0 K/mm3 (0.0-0.4) 02/20/22 04:59 Baso # (Auto) 0.1 K/mm3 (0.0-0.1) 02/20/22 04:59 Seg Neutrophils % 81.4 % (40.0-70.0) H 02/20/22 04:59 Seg Neutrophils # 9.2 K/mm3 (1.8-7.7) H 02/20/22 04:59 PT 16.9 Sec. (12.2-14.9) H 02/18/22 21:02 INR 1.20 (0.87-1.13) H 02/18/22 21:02 ABG pH 7.444 pH Units (7.350-7.450) 02/18/22 22:45 ABG pCO2 42.4 mm Hg 02/18/22 22:45 ABG pO2 55.6 mm Hg (80.0-90.0) L 02/18/22 22:45 ABG HCO3 28.4 mmol/L (20.0-26.0) H 02/18/22 22:45 ABG O2 Saturation 91.5 % (95.0-99.0) L 02/18/22 22:45 ABG O2 Content 16.6 (0.0-44) 02/18/22 22:45 ABG Base Excess 3.8 mmol/L (-2.0-3.0) H 02/18/22 22:45 ABG Hemoglobin 13.2 gm/dl (14.0-18.0) L 02/18/22 22:45 ABG Carboxyhemoglobin 1.3 % (0.0-5.0) 02/18/22 22:45 ABG Methemoglobin 0.7 % (0.0-1.5) 02/18/22 22:45 Oxyhemoglobin 89.6 % (95.0-99.0) L 02/18/22 22:45 FiO2 21 % 02/18/22 22:45 Sodium 141 mmol/L (137-145) 02/20/22 04:59 Potassium 4.3 mmol/L (3.6-5.0) 02/20/22 04:59 Chloride 104.0 mmol/L (98-107) 02/20/22 04:59 Carbon Dioxide 24 mmol/L (22-30) 02/20/22 04:59 Anion Gap 17 mmol/L 02/20/22 04:59 BUN 14 mg/dL (9-20) 02/20/22 04:59 Creatinine 0.8 mg/dL (0.8-1.3) 02/20/22 04:59 Estimated GFR > 60 ml/min 02/20/22 04:59 BUN/Creatinine Ratio 18 % 02/20/22 04:59 Glucose 91 mg/dL (75-100) 02/20/22 04:59 POC Glucose 113 mg/dL (70-105) H 02/23/22 06:29 Lactic Acid 1.20 mmol/L (0.7-2.0) 02/18/22 21:02 Calcium 8.2 mg/dL (8.4-10.2) L 02/20/22 04:59 Total Bilirubin 0.50 mg/dL (0.1-1.2) 02/18/22 21:02 AST 48 units/L (5-40) H 02/18/22 21:02 ALT 64 units/L (7-56) H 02/18/22 21:02 Alkaline Phosphatase 88 units/L (35-129) 02/18/22 21:02 Ammonia 14.0 umol/L (25-60) L 02/18/22 23:22 Troponin T < 0.010 ng/mL (0.00-0.029) 02/18/22 21:02 Total Protein 7.2 g/dL (6.3-8.2) 02/18/22 21:02 Albumin 2.7 g/dL (3.9-5) L 02/18/22 21:02 Albumin/Globulin Ratio 0.6 % 02/18/22 21:02 Urine Color Dark yellow (Yellow) 02/18/22 Unknown Urine Turbidity Clear (Clear) 02/18/22 Unknown Urine pH 7.0 (5.0-7.0) 02/18/22 Unknown Ur Specific [place] 1.015 (1.003-1.030) 02/18/22 Unknown Urine Protein <15 mg/dl mg/dL (Negative) 02/18/22 Unknown Urine Glucose (UA) Negative mg/dL (Negative) 02/18/22 Unknown Urine Ketones Negative mg/dL (Negative) 02/18/22 Unknown Urine Blood Trace (Negative) 02/18/22 Unknown Urine Nitrite Negative (Negative) 02/18/22 Unknown Urine Bilirubin Negative (Negative) 02/18/22 Unknown Urine Urobilinogen < 2.0 mg/dL (<2.0) 02/18/22 Unknown Ur Leukocyte Esterase Negative (Negative) 02/18/22 Unknown Urine WBC (Auto) 2.0 /HPF (0.0-6.0) 02/18/22 Unknown Urine RBC (Auto) 9.0 /HPF (0.0-6.0) 02/18/22 Unknown Urine Mucus Few /HPF 02/18/22 Unknown Urine Opiates Screen Negative 02/18/22 Unknown Urine Methadone Screen Negative 02/18/22 Unknown Ur Barbiturates Screen Negative 02/18/22 Unknown Ur Phencyclidine Scrn Negative 02/18/22 Unknown Ur Amphetamines Screen Negative 02/18/22 Unknown U Benzodiazepines Scrn Negative 02/18/22 Unknown Urine Cocaine Screen Negative 02/18/22 Unknown U Marijuana (THC) Screen Negative 02/18/22 Unknown Drugs of Abuse Note Disclamer 02/18/22 Unknown Plasma/Serum Alcohol < 0.01 % (0-0.07) 02/18/22 21:02 Horowitz/IV: Voiding Method Condom Catheter Active Medications - Current Medications Current Medications: Generic Name Dose Route Start Last Admin Trade Name Freq PRN Reason Stop Dose Admin Acetaminophen 650 mg 02/20/22 20:10 02/20/22 20:21 Acetaminophen 650 Mg Rect Supp SD 650 mg Q4H PRN Administration Pain, Mild (1-3) Albuterol 2.5 mg 02/20/22 00:00 02/23/22 00:44 Albuterol 2.5 Mg/3 Ml Nebu IH 2.5 mg Q8HRT LAZARUS Administration Amlodipine Besylate 2.5 mg 02/21/22 10:00 02/22/22 09:45 Amlodipine 5 Mg Tab PO Not Given DAILY LAZARUS Heparin Sodium (Porcine) 5,000 unit 02/19/22 06:00 02/23/22 06:48 Heparin 5,000 Unit/1 Ml Vial SUB-Q 5,000 unit Q8HR LAZARUS Administration Hydralazine HCl 10 mg 02/20/22 19:44 Hydralazine 20 Mg/1 Ml Inj IV Q6H PRN Hypertension Sodium Chloride 1,000 mls @ 75 mls/hr 02/19/22 02:15 02/22/22 20:11 Nacl 0.9% 1000 Ml IV 75 mls/hr DIRECT LAZARUS Administration Ceftriaxone Sodium 2 gm in 100 mls @ 200 mls/hr 02/19/22 11:00 02/22/22 10:00 Rocephin/Ns 2 Gm/100 Ml IV 200 mls/hr Q24H LAZARUS Administration Magnesium Hydroxide 30 ml 02/19/22 02:02 Magnesium Hydroxide (Mom) Oral Liqd Udc PO Q4H PRN Constipation Morphine Sulfate 2 mg 02/19/22 02:02 Morphine 2 Mg/1 Ml Inj IV Q4H PRN Pain, Moderate (4-6) Morphine Sulfate 4 mg 02/19/22 02:02 Morphine 4 Mg/1 Ml Inj IV Q4H PRN Pain , Severe (7-10) Ondansetron HCl 4 mg 02/19/22 02:02 Ondansetron 4 Mg/2 Ml Inj IV Q8H PRN Nausea And Vomiting Sodium Chloride 10 ml 02/19/22 10:00 02/22/22 22:49 Sodium Chloride 0.9% 10 Ml Flush Syringe IV 10 ml BID LAZARUS Administration Sodium Chloride 10 ml 02/19/22 02:02 02/19/22 06:41 Sodium Chloride 0.9% 10 Ml Flush Syringe IV 10 ml PRN PRN Administration LINE FLUSH Nutrition/Malnutrition Assess - Dietary Evaluation Nutrition/Malnutrition Findings: Nutrition Notes Start: 02/19/22 14:29 Freq: Status: Active Protocol: Document 02/22/22 11:41 TW (Rec: 02/22/22 11:54 TW [id number]) Nutrition Notes Need for Assessment generated from: MD Order Initial or Follow up Reassessment Current Diagnosis Hypertension,Respiratory Failure,Hyperlipidemia Other Pertinent Diagnosis Seizures, Down Syndrome, Acute Encephalopathy, Aspiration Current Diet NPO Labs/Tests Reviewed Pertinent Medications Reviewed Height 5 ft 3 in Weight 63.2 kg [place] Body Weight (kg) 56.36 BMI 24.7 Weight Status Appropriate Subjective/Other Information RD consult for TF. Pt is resistant to eating and high risk for aspiration per speech therapist. Burn Absent Trauma Absent Minimum of two criteria No #1 Nutrition Diagnosis Inadequate oral intake Etiology Acute Encephalopathy As Evidenced by Signs and Symptoms Pt NPO Is patient on ventilator? No Is Patient Ambulatory and/or Out of Bed No REE-([facility] Jem[facility]-confined to bed) [phone] Calculation Used for Recommendations [facility] Additional Notes Protein: 51-63 g/day (0.8-1 g/ kg) Fluid: 1 ml/kcal Nutrition Intervention Change Diet Order: New TF Nutrition Support: Jevity 1.2 @ 55 ml/h with 100 ml q 4h water flush Kcal 1,584 Protein (gm) 73 Carbohydrates (gm) 224 Fat (gm) 73 Fluid (mL) 1,065 Fiber (gm) 24 Goal #1 TF tolerance Goal #2 TF to meet at least 75% nutrition needs Anticipated Discharge Needs: Continue TF if necessary Follow-Up By: 02/24/22 Additional Comments F/U new TF
[2022-02-23] MEDS: amLODIPine 5 MG TAB PO SCH (10:44)
[2022-02-23] MEDS: cefTRIAXone/NS 2 GM/100 ML 2 GM/100 ML BAG IV SCH (10:44)
--- NOTE | 2022-02-23 13:38 | XRay Report ---
CHEST 1 VIEW INDICATION: resp failure. COMPARISON: 02/18/2022 FINDINGS: SUPPORT DEVICES: NG tube in the mid stomach. HEART: Within normal limits. LUNGS/PLEURA: Mild elevation of the right hemidiaphragm with moderate patchy right basilar airspace d isease and mild patchy left basilar airspace disease. There is also a small effusion on the right. Abbie ng findings have slightly worsened. ADDITIONAL FINDINGS: None. IMPRESSION: 1. Slightly worsened exam. 2. NG tube in satisfactory position. Signer Name: Andre Gordon MD Signed: 02/23/2022 1:34 PM Workstation Name: [id number]
--- NOTE | 2022-02-23 14:33 | Progress Note ---
Assessment and Plan - Patient Problems (1) Altered mental status Current Visit: Yes Status: Acute (2) Down syndrome Current Visit: Yes Status: Acute (3) Hypoxia Current Visit: Yes Status: Acute (4) Lung mass Current Visit: Yes Status: Acute (5) Mental retardation Current Visit: Yes Status: Acute (6) Nonverbal Current Visit: Yes Status: Acute (7) Acute encephalopathy Current Visit: No Status: Acute (8) Normal pressure hydrocephalus syndrome Current Visit: No Status: Acute (9) NOY (obstructive sleep apnea) Current Visit: No Status: Acute (10) Respiratory failure Current Visit: No Status: Acute Qualifiers: Chronicity: acute Respiratory failure complication: hypoxia Qualified Code(s): J96.01 - Acute respiratory failure with hypoxia (11) Seizure disorder Current Visit: No Status: Acute (12) Acute respiratory failure with hypoxemia Current Visit: Yes Status: Acute (13) Aspiration into airway Current Visit: Yes Status: Suspected Subjective Interval history: worsening in resp status overnight now on NRB Objective Vital Signs - 12hr 02/23/22 02/23/22 02/23/22 04:00 04:39 10:00 Temperature 97.6 F Pulse Rate 94 H 96 H Respiratory 20 Rate Blood Pressure 125/72 O2 Sat by Pulse 91 96 Oximetry 02/23/22 02/23/22 10:44 12:00 Temperature Pulse Rate 91 H 94 H Respiratory Rate Blood Pressure O2 Sat by Pulse Oximetry Constitutional: other (on NRB) Eyes: non-icteric ENT: oropharynx moist Neck: supple Effort: normal Ascultation: Bilateral: diminished breath sounds, rhonchi Cardiovascular: regular rate and rhythm Gastrointestinal: normoactive bowel sounds, soft, non-tender (on o2 vest in place) Integumentary: normal Extremities: no cyanosis Neurologic: other (awake) CBC and BMP: 02/20/22 04:59 02/20/22 04:59 ABG, PT/INR, D-dimer: ABG ABG pH 7.444 pH Units (7.350-7.450) 02/18/22 22:45 ABG pCO2 42.4 mm Hg 02/18/22 22:45 ABG pO2 55.6 mm Hg (80.0-90.0) L 02/18/22 22:45 ABG O2 Saturation 91.5 % (95.0-99.0) L 02/18/22 22:45 PT/INR, D-dimer PT 16.9 Sec. (12.2-14.9) H 02/18/22 21:02 INR 1.20 (0.87-1.13) H 02/18/22 21:02 Abnormal lab findings: Abnormal Labs 02/18/22 02/18/22 02/18/22 19:34 21:02 21:02 WBC MCV 101 H MCH 34 H RDW 16.1 H Lymph % (Auto) [place] % (Auto) 12.4 H Lymph # (Auto) [place] # (Auto) 1.2 H Seg Neutrophils % 73.0 H Seg Neutrophils # PT 16.9 H INR 1.20 H ABG pO2 ABG HCO3 ABG O2 Saturation ABG Base Excess ABG Hemoglobin Oxyhemoglobin Potassium Glucose POC Glucose 116 H Calcium AST ALT Ammonia Albumin 02/18/22 02/18/22 02/18/22 21:02 22:45 23:22 WBC MCV MCH RDW Lymph % (Auto) [place] % (Auto) Lymph # (Auto) [place] # (Auto) Seg Neutrophils % Seg Neutrophils # PT INR ABG pO2 55.6 L ABG HCO3 28.4 H ABG O2 Saturation 91.5 L ABG Base Excess 3.8 H ABG Hemoglobin 13.2 L Oxyhemoglobin 89.6 L Potassium 5.1 H Glucose 102 H POC Glucose Calcium AST 48 H ALT 64 H Ammonia 14.0 L Albumin 2.7 L 02/20/22 02/20/22 02/23/22 04:59 04:59 06:29 WBC 11.4 H MCV 103 H MCH 33 H RDW 16.5 H Lymph % (Auto) 5.5 L [place] % (Auto) 12.1 H Lymph # (Auto) 0.6 L [place] # (Auto) 1.4 H Seg Neutrophils % 81.4 H Seg Neutrophils # 9.2 H PT INR ABG pO2 ABG HCO3 ABG O2 Saturation ABG Base Excess ABG Hemoglobin Oxyhemoglobin Potassium Glucose POC Glucose 113 H Calcium 8.2 L AST ALT Ammonia Albumin 02/23/22 11:22 WBC MCV MCH RDW Lymph % (Auto) [place] % (Auto) Lymph # (Auto) [place] # (Auto) Seg Neutrophils % Seg Neutrophils # PT INR ABG pO2 ABG HCO3 ABG O2 Saturation ABG Base Excess ABG Hemoglobin Oxyhemoglobin Potassium Glucose POC Glucose 108 H Calcium AST ALT Ammonia Albumin Chest x-ray: report reviewed, image reviewed
[2022-02-24] MEDS: ALBUTEROL 2.5 MG/3 ML NEBU IH SCH ×6 (01:27→20:17)
[2022-02-24] MEDS: SODIUM CHLORIDE 0.9% 1000 ML 1,000 ML IV SCH (01:50)
[2022-02-24] MEDS: HEPARIN 5,000 UNIT/1 ML VIAL SUB-Q SCH ×3 (07:50→21:27)
[2022-02-24] MEDS: amLODIPine 5 MG TAB PO SCH (09:20)
[2022-02-24 11:39] LABS: Hematocrit 35.5 % (35.5-45.6); Hemoglobin 12.1 gm/dl (11.8-15.2); Mean Corpuscular HGB Conc 34 % (32-34); Mean Corpuscular Volume 100 fl (84-94); Platelet Count 261 K/mm3 (140-440); Red Blood Count 3.55 M/mm3 (3.65-5.03); Red Cell Distribution Width 15.6 % (13.2-15.2)
[2022-02-24 11:57] LABS: Blood Urea Nitrogen 9 mg/dL (9-20); Calcium 7.9 mg/dL (8.4-10.2); Hemolysis Index 1
[2022-02-24 12:05] LABS: BUN/Creatinine Ratio 18
[2022-02-24] MEDS ORDERED: POTASSIUM CHLORIDE 10 MEQ 10 MEQ/100 ML BAG IV SCH (13:15)
[2022-02-24] MEDS: SODIUM CHLORIDE 0.45% 1000 ML 1,000 ML IV SCH (13:21)
[2022-02-24] MEDS ORDERED: POTASSIUM PHOSPHATE 30 MMOL in SODIUM CHLORIDE 0.9% 500 ML 500 ML IV SCH (13:45)
[2022-02-24] MEDS ORDERED: SUCCINYLCHOLINE CHLORIDE 200 MG/10 ML INJ MDV ONE (14:54)
[2022-02-24] MEDS ORDERED: ETOMIDATE 20 MG/10 ML INJ IV ONE ×2 (14:54→15:08)
[2022-02-24] MEDS ORDERED: MINERAL OIL/PETROLATUM, WHITE OPHTH OINT 3.5 GM OU PRN (15:05)
[2022-02-24] MEDS ORDERED: fentaNYL 100 MCG/2 ML INJ IV PRN (15:05)
[2022-02-24] MEDS ORDERED: LIP THERAPY VASELINE TP PRN (15:05)
[2022-02-24] MEDS ORDERED: SUCCINYLCHOLINE CHLORIDE 200 MG/10 ML INJ MDV IV ONE (15:08)
--- NOTE | 2022-02-24 15:08 | Event Note ---
Date: 02/24/22 (Intubation) Requested to intubate patient in ICU 253 with 8.0 OETT so he can get FOB tomorrow 14:57 Meds: Etomidate 15mg + Yesenia 100mg Glidescope 3 with good view. 8 OETT easily passed +CO2/BBS Head maintained in neutral position throughout VSS post intubation Performed by Denny Bennett and myself.
[2022-02-24] MEDS: fentaNYL DRIP Premix 2,000 MCG/100 ML BAG IV SCH (15:19)
--- NOTE | 2022-02-24 15:38 | Progress Note ---
<CODYCARSON LizarragaRadha - Last Filed: 02/24/22 15:34> Assessment and Plan Assessment and plan: This is a 51-year-old male with HTN, seizure disorder, Down syndrome, HLD, partial blindness admitted with aspiration pneumonia, probable bronchogenic carcinoma, acute hypoxic respiratory failure and acute encephalopathy Neuro: Acute encephalopathy, h/o seizure disorder, Down syndrome, partial blindness -Patient currently sedated with fentanyl and propofol -RASS goal 0 to -1 -Reorientation as needed -Maintain sleep-wake cycle -aspiration/seizure precautions -As needed analgesia -CT head showed no acute abnormality -Continue Keppra -Neurology consulted, appreciate recommendations Cardiac: h/o HTN, HLD -Cardiology consulted, appreciate recommendations -Blood pressure monitoring per protocol -Hypertensive regimen: Amlodipine -MAP goal greater than 65 -Echocardiogram pending Respiratory: Acute hypoxic respiratory failure, r/o bronchogenic carcinoma -CCM consulted, appreciate recommendations -Intubated on 02/24 with a 8.0 at 23 at the lips -Vent settings: AC rate 14, TV 360, PEEP 8, FO2 100% -See RT notes for titration -VAP bundle -SPO2 monitoring GI: Moderate protein calorie malnutrition -24 hours -200 mL -PPI -NTR consulted for tube feedings -BR: Senokot-S -MIVF while n.p.o. : Hypokalemia, hypophosphatemia, slight hyponatremia and hyperchloremia -Repleted with KCl and K-Phos -Monitor intake and output -Renally dose medications -Avoid nephrotoxic medications -Trend BMP ID: Aspiration PNA -S/p Rocephin for 5 days (02/19-02/24) -Monitor WBC and temperature curve Endo: NAD -Avoid hypoglycemia -Accu-Cheks every 6 -Avoid hypoglycemia Heme: NAD -Trend CBC -Transfuse hemoglobin less than 7 -SCDs to BLE while in bed The high probability of a clinically significant, sudden or life threatening deterioration of the [resp] system(s) required my full and direct attention, intervention and personal management. The aggregate critical care time was [60] minutes. This time is in addition to time spent performing reported procedures but includes the following: [x] Data Review and interpretation [x] Patient assessment and monitoring of vital signs [x] Documentation [x] Medication orders and management Disposition Plan: icu Total Time Spent with Patient (Minutes): 60 History Interval history: This is a 51-year-old male with HTN, seizure disorder, Down syndrome, HLD, and partial blindness was a resident of the [facility] who presented to emergency department on 02/19 for evaluation of change in mental status. Of note patient was recently discharged a few weeks ago for a seizure disorder and UTI. Upon a rrival to the emergency department patient was noted to be hypoxic with SPO2 in the 80s on a nonrebreather with difficulty breathing. Work-up in the emergency department revealed CXR which showed elevation of the right hemidiaphragm, right lower lung atelectasis and effusion with mild increased pulmonary vascularity but no pneumothorax and CT of the head did not show any acute abnormality. 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 Patient was admitted to the hospitalist service to the floor. Hospital course to date: 02/19/2022. Consult pulmonary for further evaluation and possible bronchoscopy. I suspect patient has component of aspiration pneumonia as well. We will obtain a speech therapy evaluation for swallowing and start empiric antibiotics. Continue O2 supplementation to maintain sats greater than 92%. 02/20/2022. Pulmonary feels that the abnormality seen on CT scan is highly unlikely for a mass given negative chest x-ray 1 month ago and no risk factors. Etiology is likely secondary to aspiration from possibly a foreign body most likely food with atelectasis of the right lower lobe. Bronchoscopy is needed in the case to evaluate to see if lung mass is there vs foreign body, but at this time not able to do because no identifiable person that is able to give consent. Continue aspiration precautions and continue speech therapy evaluation for sw allowing. Keep n.p.o. for now 02/21/2022. Patient remains NPO. Consider DHT placement. Follow-up with speech therapy evaluation. Pulmonology to consider bronchoscopy if able to obtain consent. Continue IV antibiotics for aspiration pneumonia 02/22/2022. Patient remains NPO. Consider DHT placement. Follow-up with speech therapy evaluation. Pulmonology to consider bronchoscopy if able to obtain consent. Continue IV antibiotics for aspiration pneumonia 02/23/2022. DHT placed yesterday. TF initiated for nutritional support. Patient currently with strict NPO. Aspiration precautions. Pulmonology to consider bronchoscopy if able to obtain consent. Continue IV antibiotics for aspiration pneumonia 02/24: Patient was transferred to the ICU for further monitoring. This morning patient remained on high flow nasal cannula on 40 L/100% and despite repeated nasotracheal suctioning patient SPO2 remained in the 80s. Patient was placed on nonrebreather and SPO2 increased to upper 80s. Patient was subsequently intubated by anesthesia. Started on sedation. Hospitalist Physical - Constitutional Vitals: Temp Pulse Resp BP Pulse Ox 97.5 F L 102 H 28 H 130/78 56 L 02/24/22 12:00 02/24/22 15:00 02/24/22 15:00 02/24/22 15:00 02/24/22 15:00 General appearance: Present: no acute distress, well-nourished - EENT Eyes: Present: PERRL, EOM intact ENT: poor dentition - Neck Neck: Present: normal ROM - Respiratory Respiratory effort: normal Respiratory: bilateral: diminished - Cardiovascular Rhythm: regular Heart Sounds: Present: S1 & S2. Absent: systolic murmur, diastolic murmur - Extremities Extremities: no ischemia, pulses intact, pulses symmetrical, No edema, normal temperature, normal color Peripheral Pulses: within normal limits - Abdominal General gastrointestinal: soft, non-tender, non-distended, normal bowel sounds - Integumentary Integumentary: Present: warm, dry - Psychiatric Psychiatric: other - Neurologic Neurologic: other (move all extremites spontanously, does not follow commands) - Allied Health Allied health notes reviewed: nursing, RT, social work HEART Score - HEART Score Troponin: Troponin T < 0.010 ng/mL (0.00-0.029) 02/18/22 21:02 Results - Labs CBC & Chem 7: 02/24/22 11:05 02/24/22 11:05 Labs: Laboratory Last Values WBC 9.1 K/mm3 (4.5-11.0) 02/24/22 11:05 RBC 3.55 M/mm3 (3.65-5.03) L 02/24/22 11:05 Hgb 12.1 gm/dl (11.8-15.2) 02/24/22 11:05 Hct 35.5 % (35.5-45.6) 02/24/22 11:05 MCV 100 fl (84-94) H 02/24/22 11:05 MCH 34 pg (28-32) H 02/24/22 11:05 MCHC 34 % (32-34) 02/24/22 11:05 RDW 15.6 % (13.2-15.2) H 02/24/22 11:05 Plt Count 261 K/mm3 (140-440) 02/24/22 11:05 Lymph % (Auto) 5.5 % (13.4-35.0) L 02/20/22 04:59 [place] % (Auto) 12.1 % (0.0-7.3) H 02/20/22 04:59 Eos % (Auto) 0.2 % (0.0-4.3) 02/20/22 04:59 Baso % (Auto) 0.8 % (0.0-1.8) 02/20/22 04:59 Lymph # (Auto) 0.6 K/mm3 (1.2-5.4) L 02/20/22 04:59 [place] # (Auto) 1.4 K/mm3 (0.0-0.8) H 02/20/22 04:59 Eos # (Auto) 0.0 K/mm3 (0.0-0.4) 02/20/22 04:59 Baso # (Auto) 0.1 K/mm3 (0.0-0.1) 02/20/22 04:59 Seg Neutrophils % 81.4 % (40.0-70.0) H 02/20/22 04:59 Seg Neutrophils # 9.2 K/mm3 (1.8-7.7) H 02/20/22 04:59 PT 16.9 Sec. (12.2-14.9) H 02/18/22 21:02 INR 1.20 (0.87-1.13) H 02/18/22 21:02 ABG pH 7.444 pH Units (7.350-7.450) 02/18/22 22:45 ABG pCO2 42.4 mm Hg 02/18/22 22:45 ABG pO2 55.6 mm Hg (80.0-90.0) L 02/18/22 22:45 ABG HCO3 28.4 mmol/L (20.0-26.0) H 02/18/22 22:45 ABG O2 Saturation 91.5 % (95.0-99.0) L 02/18/22 22:45 ABG O2 Content 16.6 (0.0-44) 02/18/22 22:45 ABG Base Excess 3.8 mmol/L (-2.0-3.0) H 02/18/22 22:45 ABG Hemoglobin 13.2 gm/dl (14.0-18.0) L 02/18/22 22:45 ABG Carboxyhemoglobin 1.3 % (0.0-5.0) 02/18/22 22:45 ABG Methemoglobin 0.7 % (0.0-1.5) 02/18/22 22:45 Oxyhemoglobin 89.6 % (95.0-99.0) L 02/18/22 22:45 FiO2 21 % 02/18/22 22:45 Sodium 146 mmol/L (137-145) H 02/24/22 11:05 Potassium 3.2 mmol/L (3.6-5.0) L D 02/24/22 11:05 Chloride 108.4 mmol/L (98-107) H 02/24/22 11:05 Carbon Dioxide 30 mmol/L (22-30) 02/24/22 11:05 Anion Gap 11 mmol/L 02/24/22 11:05 BUN 9 mg/dL (9-20) 02/24/22 11:05 Creatinine 0.5 mg/dL (0.8-1.3) L 02/24/22 11:05 Estimated GFR > 60 ml/min 02/24/22 11:05 BUN/Creatinine Ratio 18 % 02/24/22 11:05 Glucose 94 mg/dL (75-100) 02/24/22 11:05 POC Glucose 111 mg/dL (70-105) H 02/24/22 13:20 Lactic Acid 1.20 mmol/L (0.7-2.0) 02/18/22 21:02 Calcium 7.9 mg/dL (8.4-10.2) L 02/24/22 11:05 Phosphorus 2.20 mg/dL (2.5-4.5) L 02/24/22 11:05 Magnesium 1.90 mg/dL (1.7-2.3) 02/24/22 11:05 Total Bilirubin 0.50 mg/dL (0.1-1.2) 02/18/22 21:02 AST 48 units/L (5-40) H 02/18/22 21:02 ALT 64 units/L (7-56) H 02/18/22 21:02 Alkaline Phosphatase 88 units/L (35-129) 02/18/22 21:02 Ammonia 14.0 umol/L (25-60) L 02/18/22 23:22 Troponin T < 0.010 ng/mL (0.00-0.029) 02/18/22 21:02 Total Protein 7.2 g/dL (6.3-8.2) 02/18/22 21:02 Albumin 2.7 g/dL (3.9-5) L 02/18/22 21: Albumin/Globulin Ratio 0.6 % 02/18/22 21:02 Urine Color Dark yellow (Yellow) 02/18/22 Unknown Urine Turbidity Clear (Clear) 02/18/22 Unknown Urine pH 7.0 (5.0-7.0) 02/18/22 Unknown Ur Specific [place] 1.015 (1.003-1.030) 02/18/22 Unknown Urine Protein <15 mg/dl mg/dL (Negative) 02/18/22 Unknown Urine Glucose (UA) Negative mg/dL (Negative) 02/18/22 Unknown Urine Ketones Negative mg/dL (Negative) 02/18/22 Unknown Urine Blood Trace (Negative) 02/18/22 Unknown Urine Nitrite Negative (Negative) 02/18/22 Unknown Urine Bilirubin Negative (Negative) 02/18/22 Unknown Urine Urobilinogen < 2.0 mg/dL (<2.0) 02/18/22 Unknown Ur Leukocyte Esterase Negative (Negative) 02/18/22 Unknown Urine WBC (Auto) 2.0 /HPF (0.0-6.0) 02/18/22 Unknown Urine RBC (Auto) 9.0 /HPF (0.0-6.0) 02/18/22 Unknown Urine Mucus Few /HPF 02/18/22 Unknown Urine Opiates Screen Negative 02/18/22 Unknown Urine Methadone Screen Negative 02/18/22 Unknown Ur Barbiturates Screen Negative 02/18/22 Unknown Ur Phencyclidine Scrn Negative 02/18/22 Unknown Ur Amphetamines Screen Negative 02/18/22 Unknown U Benzodiazepines Scrn Negative 02/18/22 Unknown Urine Cocaine Screen Negative 02/18/22 Unknown U Marijuana (THC) Screen Negative 02/18/22 Unknown Drugs of Abuse Note Disclamer 02/18/22 Unknown Plasma/Serum Alcohol < 0.01 % (0-0.07) 02/18/22 21:02 Horowitz/IV: Voiding Method Condom Catheter Active Medications - Current Medications Current Medications: Generic Name Dose Route Start Last Admin Trade Name Freq PRN Reason Stop Dose Admin Acetaminophen 650 mg 02/20/22 20:10 02/20/22 20:21 Acetaminophen 650 Mg Rect Supp PA 650 mg Q4H PRN Administration Pain, Mild (1-3) Albuterol 2.5 mg 02/23/22 16:00 02/24/22 09:32 Albuterol 2.5 Mg/3 Ml Nebu IH 2.5 mg Q4HRT LAZARUS Administration Amlodipine Besylate 2.5 mg 02/21/22 10:00 02/24/22 09:20 Amlodipine 5 Mg Tab PO 2.5 mg DAILY LAZARUS Administration Famotidine 20 mg 02/24/22 22:00 Famotidine 20 Mg/2 Ml Inj IV BID LAZARUS Fentanyl 50 mcg 02/24/22 15:05 Fentanyl 100 Mcg/2 Ml Inj IV Q10MIN PRN ANALGESIA Heparin Sodium (Porcine) 5,000 unit 02/19/22 06:00 02/24/22 14:01 Heparin 5,000 Unit/1 Ml Vial SUB-Q 5,000 unit Q8HR LAZARUS Administration Hydralazine HCl 10 mg 02/20/22 19:44 Hydralazine 20 Mg/1 Ml Inj IV Q6H PRN Hypertension Hydrophilic Ointment 1 applic 02/24/22 15:05 Lip Therapy Vaseline TP Q2HR PRN Dry Lips Potassium Phosphate 30 mmol/ 510 mls @ 85 mls/hr 02/24/22 13:45 02/24/22 14:02 Sodium Chloride IV 02/24/22 17:45 85 mls/hr ONCE@1345 LAZARUS Administration Potassium Chloride 10 meq in 100 mls @ 100 mls/hr 02/24/22 13:15 02/24/22 13:24 Kcl 10meq/100ml IV 02/24/22 17:15 100 mls/hr ONCE@1315 LAZARUS Administration Sodium Chloride 1,000 mls @ 75 mls/hr 02/24/22 14:00 02/24/22 13:21 Nacl 0.45% 1000 Ml IV 75 mls/hr DIRECT LAZARUS Administration Fentanyl Citrate 2,000 mcg in 100 mls @ 3.16 mls/hr 02/24/22 16:00 02/24/22 15:19 Fentanyl Drip Premix IV 1 mcg/kg/hr TITR LAZARUS 3.16 mls/hr Administration Protocol 1 MCG/KG/HR Propofol 1,000 mg in 100 mls @ 1.896 mls/hr 02/24/22 16:00 Diprivan 10 Mg/Ml IV TITR LAZARUS Protocol 5 MCG/KG/MIN Magnesium Hydroxide 30 ml 02/19/22 02:02 Magnesium Hydroxide (Mom) Oral Liqd Udc PO Q4H PRN Constipation Morphine Sulfate 2 mg 02/19/22 02:02 Morphine 2 Mg/1 Ml Inj IV Q4H PRN Pain, Moderate (4-6) Morphine Sulfate 4 mg 02/19/22 02:02 Morphine 4 Mg/1 Ml Inj IV Q4H PRN Pain , Severe (7-10) Multi-Ingred Cream/Lotion/Oil/Oint 1 applic 02/24/22 15:05 Mineral Oil/Petrolatum, White Ophth Oint 3.5 Gm OU Q4HR PRN Dry Eye(s) Ondansetron HCl 4 mg 02/19/22 02:02 Ondansetron 4 Mg/2 Ml Inj IV Q8H PRN Nausea And Vomiting Senna/Docusate Sodium 1 tab 02/24/22 22:00 Sennosides/Docusate Sodium 8.6/50 Mg Tab FEEDTUBE BID LAZARUS Sodium Chloride 10 ml 02/19/22 10:00 02/24/22 09:21 Sodium Chloride 0.9% 10 Ml Flush Syringe IV 10 ml BID LAZARUS Administration Sodium Chloride 10 ml 02/19/22 02:02 02/19/22 06:41 Sodium Chloride 0.9% 10 Ml Flush Syringe IV 10 ml PRN PRN Administration LINE FLUSH Nutrition/Malnutrition Assess - Dietary Evaluation Nutrition/Malnutrition Findings: Nutrition Notes Start: 02/19/22 14:29 Freq: Status: Active Protocol: Document 02/24/22 14:57 TIERRA (Rec: 02/24/22 15:17 TIERRA [id number]) Nutrition Notes Initial or Follow up Brief Note Current Diagnosis Hypertension,Respiratory Failure,Hyperlipidemia Other Pertinent Diagnosis Encephalopathy, Seizure Broncogenic Carcinoma pui, Down Syndrome. Current Diet NPO (from 02/24 13:36). Height 5 ft 3 in Weight 63.2 kg Neon Body Weight (kg) 56.36 BMI 24.7 Weight change and time frame No body weight change reported in 2 days. Weight Status Appropriate Subjective/Other Information RD consult for routine F/U on TF tolerance/continuation assessment. Pt currently on NPO. TF will be held for 24 hr, according to Progress notes. Pt intubated at 14:40 on 02/24 , according to RN notes. Nutrition Intervention Follow-Up By: 02/26/22 Additional Comments Continue monitoring on ventilation status, resume TF, and BM. <JOAQUIN ROBIN - Last Filed: 02/25/22 11:48> Assessment and Plan Assessment and plan: I saw and evaluated the patient. I agree with the findings and the plan of care as documented in the Nurse Practitioner's~note, with the following corrections and additions. Hospitalist Physical - Constitutional Vitals: Temp Pulse Resp BP Pulse Ox 97.9 F 83 14 80/46 98 02/25/22 07:00 02/25/22 10:31 02/25/22 10:31 02/25/22 10:31 02/25/22 10:31 HEART Score - HEART Score Troponin: Troponin T < 0.010 ng/mL (0.00-0.029) 02/18/22 21:02 Results - Labs CBC & Chem 7: 02/25/22 04:12 02/25/22 04:12 Labs: Laboratory Last Values WBC 9.9 K/mm3 (4.5-11.0) 02/25/22 04:12 RBC 3.07 M/mm3 (3.65-5.03) L 02/25/22 04:12 Hgb 10.2 gm/dl (11.8-15.2) L 02/25/22 04:12 Hct 31.5 % (35.5-45.6) L 02/25/22 04:12 MCV 103 fl (84-94) H 02/25/22 04:12 MCH 33 pg (28-32) H 02/25/22 04:12 MCHC 33 % (32-34) 02/25/22 04:12 RDW 15.6 % (13.2-15.2) H 02/25/22 04:12 Plt Count 253 K/mm3 (140-440) 02/25/22 04:12 Lymph % (Auto) 5.5 % (13.4-35.0) L 02/20/22 04:59 [place] % (Auto) 12.1 % (0.0-7.3) H 02/20/22 04:59 Eos % (Auto) 0.2 % (0.0-4.3) 02/20/22 04:59 Baso % (Auto) 0.8 % (0.0-1.8) 02/20/22 04:59 Lymph # (Auto) 0.6 K/mm3 (1.2-5.4) L 02/20/22 04:59 [place] # (Auto) 1.4 K/mm3 (0.0-0.8) H 02/20/22 04:59 Eos # (Auto) 0.0 K/mm3 (0.0-0.4) 02/20/22 04:59 Baso # (Auto) 0.1 K/mm3 (0.0-0.1) 02/20/22 04:59 Seg Neutrophils % 81.4 % (40.0-70.0) H 02/20/22 04:59 Seg Neutrophils # 9.2 K/mm3 (1.8-7.7) H 02/20/22 04:59 PT 16.9 Sec. (12.2-14.9) H 02/18/22 21:02 INR 1.20 (0.87-1.13) H 02/18/22 21:02 ABG pH 7.353 pH Units (7.350-7.450) 02/25/22 05:05 ABG pCO2 59.8 mm Hg 02/25/22 05:05 ABG pO2 84.2 mm Hg (80.0-90.0) 02/25/22 05:05 ABG HCO3 32.5 mmol/L (20.0-26.0) H 02/25/22 05:05 ABG O2 Saturation 96.7 % (95.0-99.0) 02/25/22 05:05 ABG O2 Content 14.5 (0.0-44) 02/25/22 05:05 ABG Base Excess 5.6 mmol/L (-2.0-3.0) H 02/25/22 05:05 ABG Hemoglobin 10.8 gm/dl (14.0-18.0) L 02/25/22 05:05 ABG Carboxyhemoglobin 1.1 % (0.0-5.0) 02/25/22 05:05 ABG Methemoglobin 0.7 % (0.0-1.5) 02/25/22 05:05 Oxyhemoglobin 94.8 % (95.0-99.0) L 02/25/22 05:05 FiO2 75 % 02/25/22 05:05 Sodium 142 mmol/L (137-145) 02/25/22 04:12 Potassium 3.5 mmol/L (3.6-5.0) L 02/25/22 04:12 Chloride 107.7 mmol/L (98-107) H 02/25/22 04:12 Carbon Dioxide 28 mmol/L (22-30) 02/25/22 04:12 Anion Gap 10 mmol/L 02/25/22 04:12 BUN 9 mg/dL (9-20) 02/25/22 04:12 Creatinine 0.5 mg/dL (0.8-1.3) L 02/25/22 04:12 Estimated GFR > 60 ml/min 02/25/22 04:12 BUN/Creatinine Ratio 18 % 02/25/22 04:12 Glucose 99 mg/dL (75-100) 02/25/22 04:12 POC Glucose 101 mg/dL (70-105) 02/25/22 04:26 Lactic Acid 1.20 mmol/L (0.7-2.0) 02/18/22 21:02 Calcium 7.0 mg/dL (8.4-10.2) L 02/25/22 04:12 Phosphorus 3.00 mg/dL (2.5-4.5) D 02/25/22 04:12 Magnesium 1.70 mg/dL (1.7-2.3) 02/24/22 20:25 Total Bilirubin 0.50 mg/dL (0.1-1.2) 02/18/22 21:02 AST 48 units/L (5-40) H 02/18/22 21:02 ALT 64 units/L (7-56) H 02/18/22 21:02 Alkaline Phosphatase 88 units/L (35-129) 02/18/22 21:02 Ammonia 14.0 umol/L (25-60) L 02/18/22 23:22 Troponin T < 0.010 ng/mL (0.00-0.029) 02/18/22 21:02 Total Protein 7.2 g/dL (6.3-8.2) 02/18/22 21:02 Albumin 2.7 g/dL (3.9-5) L 02/18/22 21:02 Albumin/Globulin Ratio 0.6 % 02/18/22 21:02 Urine Color Dark yellow (Yellow) 02/18/22 Unknown Urine Turbidity Clear (Clear) 02/18/22 Unknown Urine pH 7.0 (5.0-7.0) 02/18/22 Unknown Ur Specific [place] 1.015 (1.003-1.030) 02/18/22 Unknown Urine Protein <15 mg/dl mg/dL (Negative) 02/18/22 Unknown Urine Glucose (UA) Negative mg/dL (Negative) 02/18/22 Unknown Urine Ketones Negative mg/dL (Negative) 02/18/22 Unknown Urine Blood Trace (Negative) 02/18/22 Unknown Urine Nitrite Negative (Negative) 02/18/22 Unknown Urine Bilirubin Negative (Negative) 02/18/22 Unknown Urine Urobilinogen < 2.0 mg/dL (<2.0) 02/18/22 Unknown Ur Leukocyte Esterase Negative (Negative) 02/18/22 Unknown Urine WBC (Auto) 2.0 /HPF (0.0-6.0) 02/18/22 Unknown Urine RBC (Auto) 9.0 /HPF (0.0-6.0) 02/18/22 Unknown Urine Mucus Few /HPF 02/18/22 Unknown Urine Opiates Screen Negative 02/18/22 Unknown Urine Methadone Screen Negative 02/18/22 Unknown Ur Barbiturates Screen Negative 02/18/22 Unknown Ur Phencyclidine Scrn Negative 02/18/22 Unknown Ur Amphetamines Screen Negative 02/18/22 Unknown U Benzodiazepines Scrn Negative 02/18/22 Unknown Urine Cocaine Screen Negative 02/18/22 Unknown U Marijuana (THC) Screen Negative 02/18/22 Unknown Drugs of Abuse Note Disclamer 02/18/22 Unknown Plasma/Serum Alcohol < 0.01 % (0-0.07) 02/18/22 21:02 Horowitz/IV: Voiding Method Condom Catheter Active Medications - Current Medications Current Medications: Generic Name Dose Route Start Last Admin Trade Name Freq PRN Reason Stop Dose Admin Acetaminophen 650 mg 02/20/22 20:10 02/20/22 20:21 Acetaminophen 650 Mg Rect Supp PA 650 mg Q4H PRN Administration Pain, Mild (1-3) Albuterol 2.5 mg 02/23/22 16:00 02/25/22 08:41 Albuterol 2.5 Mg/3 Ml Nebu IH 2.5 mg Q4HRT LAZARUS Administration Famotidine 20 mg 02/25/22 10:00 02/25/22 09:47 Famotidine 20 Mg Tab FEEDTUBE 20 mg BID LAZARUS Administration Fentanyl 50 mcg 02/24/22 15:05 Fentanyl 100 Mcg/2 Ml Inj IV Q10MIN PRN ANALGESIA Heparin Sodium (Porcine) 5,000 unit 02/19/22 06:00 02/25/22 05:44 Heparin 5,000 Unit/1 Ml Vial SUB-Q 5,000 unit Q8HR LAZARUS Administration Hydralazine HCl 10 mg 02/20/22 19:44 Hydralazine 20 Mg/1 Ml Inj IV Q6H PRN Hypertension Hydrophilic Ointment 1 applic 02/24/22 15:05 Lip Therapy Vaseline TP Q2HR PRN Dry Lips Fentanyl Citrate 2,000 mcg in 100 mls @ 3.16 mls/hr 02/24/22 16:00 02/25/22 03:26 Fentanyl Drip Premix IV 1 mcg/kg/hr TITR LAZARUS 3.16 mls/hr Administration Protocol 1 MCG/KG/HR Propofol 1,000 mg in 100 mls @ 1.896 mls/hr 02/24/22 16:00 Diprivan 10 Mg/Ml IV TITR LAZARUS Protocol 5 MCG/KG/MIN Magnesium Hydroxide 30 ml 02/19/22 02:02 Magnesium Hydroxide (Mom) Oral Liqd Udc PO Q4H PRN Constipation Morphine Sulfate 2 mg 02/19/22 02:02 Morphine 2 Mg/1 Ml Inj IV Q4H PRN Pain, Moderate (4-6) Morphine Sulfate 4 mg 02/19/22 02:02 Morphine 4 Mg/1 Ml Inj IV Q4H PRN Pain , Severe (7-10) Multi-Ingred Cream/Lotion/Oil/Oint 1 applic 02/24/22 15:05 Mineral Oil/Petrolatum, White Ophth Oint 3.5 Gm OU Q4HR PRN Dry Eye(s) Ondansetron HCl 4 mg 02/19/22 02:02 Ondansetron 4 Mg/2 Ml Inj IV Q8H PRN Nausea And Vomiting Potassium Chloride 40 meq 02/25/22 08:45 02/25/22 09:46 Potassium Chloride 20 Meq Packet FEEDTUBE 02/25/22 12:45 40 meq ONCE@0845 LAZARUS Administration Senna/Docusate Sodium 1 tab 02/24/22 22:00 02/25/22 09:46 Sennosides/Docusate Sodium 8.6/50 Mg Tab FEEDTUBE 1 tab BID LAZARUS Administration Sodium Chloride 10 ml 02/19/22 10:00 02/25/22 09:54 Sodium Chloride 0.9% 10 Ml Flush Syringe IV 10 ml BID LAZARUS Administration Sodium Chloride 10 ml 02/19/22 02:02 02/19/22 06:41 Sodium Chloride 0.9% 10 Ml Flush Syringe IV 10 ml PRN PRN Administration LINE FLUSH Nutrition/Malnutrition Assess - Dietary Evaluation Nutrition/Malnutrition Findings: Nutrition Notes Start: 02/19/22 14:29 Freq: Status: Active Protocol: Document 02/24/22 14:57 TIERRA (Rec: 02/24/22 15:17 TIERRA [id number]) Nutrition Notes Initial or Follow up Brief Note Current Diagnosis Hypertension,Respiratory Failure,Hyperlipidemia Other Pertinent Diagnosis Encephalopathy, Seizure Broncogenic Carcinoma pui, Down Syndrome. Current Diet NPO (from 02/24 13:36). Height 5 ft 3 in Weight 63.2 kg Neon Body Weight (kg) 56.36 BMI 24.7 Weight change and time frame No body weight change reported in 2 days. Weight Status Appropriate Subjective/Other Information RD consult for routine F/U on TF tolerance/continuation assessment and evaluation of nutritional intake assessment. Pt currently on NPO. TF will be held for 24 hr, according to Progress notes. Pt intubated at 14:40 on 02/24 , according to RN notes. Nutrition Intervention Follow-Up By: 02/26/22 Additional Comments Continue monitoring on ventilation status, resume TF, and BM.
--- NOTE | 2022-02-24 15:57 | XRay Report ---
CHEST 1 VIEW 02/24/2022 3:28 PM INDICATION / CLINICAL INFORMATION: ETT placement. COMPARISON: One view of the chest from 02/23/2022. FINDINGS: SUPPORT DEVICES: An ET tube has been placed with the tip located 5.5 cm above the colt. Unchanged e sophagogastric tube. HEART / MEDIASTINUM: No significant abnormality. LUNGS / PLEURA: Right air space opacities have improved while left airspace opacities have increased. No significant pleural effusion. No pneumothorax. ADDITIONAL FINDINGS: No significant additional findings. IMPRESSION: Satisfactory positioning of the ET tube with evolving bilateral airspace opacities, likely representi ng atelectasis/edema. Signer Name: Jesu Gimenez MD Signed: 02/24/2022 3:52 PM Workstation Name: [email or web address]
[2022-02-24 17:25] LABS: ABG Base Excess 3.8 mmol/L (-2.0-3.0); ABG HCO3 31.3 mmol/L (20.0-26.0); ABG Methemoglobin 0.7 % (0.0-1.5); ABG Oxygen Saturation 92.2 % (95.0-99.0); ABG PCO2 62.4 mm Hg; ABG PH 7.319 pH Units (7.350-7.450); ABG PO2 65.3 mm Hg (80.0-90.0)
--- NOTE | 2022-02-24 19:20 | Progress Note ---
Assessment and Plan 61 y/o male with abnormal CT of chest. 02/24/22: WIll attempt to bronch tomorrow morning. NPO after midnight. Just received word from GI lab they are not able to do bronch tomorrow. Cancel NPO order. Continue to feed patient. Repeat ABG in AM along with CXR. 02/21/22: No new pulm recs for today. Please obtain repeat CXR likely on Thursday. If patient happens to get worse, likely not a candidate for bipap given his weak cough and mental state and inability to communicate. If worsens and requires intubation, will bronch then under emergent circumstances if no POA or family is able to be located. Continue CPT. Will discuss with RT about NT suctioning. 02/20/22: Saw speech while on the floor. Would like patient to be NPO now. Discussed with nurse on floor and with IMS. Same recs pulm way as yesterday. Would benefit from bronch if able to get consent as this is not emergent. Continue CPT and q shift NT suctioning. Reviewed admission in the past and of note, patient was recently admitted last month and had a CXR done on the 29 of January that was normal. Given this patient's medical history and the history that I obtained from the nursing staff that at the [facility] he was eating solid foods, I suspect that this is aspiration, possibly of a foreign body (most likely food) with atelectasis of the right lower lobe. It is highly unlikely that a mass evolved in size in less than a months time and patient, besides age, has no real risk factors for lung carcinoma. Discussed with the nurse and unfortunately there is no identifiable person that is able to give consent. Bronchoscopy is needed in the case to e valuate to see if lung mass is there vs foreign body, but at this time not able to do. In the meanwhile will recommend the following. 1. Will order CPT with neb therapy 3x daily 2. Suggest maybe NT suctioning q shift. May use nasal trumpet, however do not leave this device in the patient 3. Aspiration precautions 4. Consider speech eval to assess swallowing. Will continue to follow. CCT 31 minutes. Subjective Date of service: 02/24/22 Interval history: Patient acute decompensated earlier today. Spoke with [employer] and asked to have patient intubated. Done by anesthesia with no complications. Has 8.0 tube Objective Vital Signs - 12hr 02/24/22 02/24/22 02/24/22 07:21 07:31 07:41 Temperature Pulse Rate 82 78 80 Pulse Rate [ Bilateral Throughout] Pulse Rate [ From Monitor] Respiratory 13 12 14 Rate Respiratory Rate [Bilateral Throughout] Blood Pressure 141/74 141/74 141/74 O2 Sat by Pulse 95 95 97 Oximetry 02/24/22 02/24/22 02/24/22 07:51 07:55 08:00 Temperature 98.1 F Pulse Rate 81 82 Pulse Rate [ Bilateral Throughout] Pulse Rate [ 82 From Monitor] Respiratory 15 13 Rate Respiratory Rate [Bilateral Throughout] Blood Pressure 141/74 O2 Sat by Pulse 95 93 Oximetry 02/24/22 02/24/22 02/24/22 08:01 08:11 08:21 Temperature Pulse Rate 86 80 83 Pulse Rate [ Bilateral Throughout] Pulse Rate [ From Monitor] Respiratory 18 13 14 Rate Respiratory Rate [Bilateral Throughout] Blood Pressure 129/87 129/87 129/87 O2 Sat by Pulse 95 95 95 Oximetry 02/24/22 02/24/22 02/24/22 08:31 08:41 08:51 Temperature Pulse Rate 80 81 95 H Pulse Rate [ Bilateral Throughout] Pulse Rate [ From Monitor] Respiratory 15 12 15 Rate Respiratory Rate [Bilateral Throughout] Blood Pressure 129/87 129/87 129/87 O2 Sat by Pulse 95 95 96 Oximetry 02/24/22 02/24/22 02/24/22 09:00 09:11 09:21 Temperature Pulse Rate 86 84 94 H Pulse Rate [ Bilateral Throughout] Pulse Rate [ From Monitor] Respiratory 11 L 12 14 Rate Respiratory Rate [Bilateral Throughout] Blood Pressure 145/91 129/87 129/87 O2 Sat by Pulse 93 93 95 Oximetry 02/24/22 02/24/22 02/24/22 09:31 09:32 09:41 Temperature Pulse Rate 88 84 Pulse Rate [ 95 H Bilateral Throughout] Pulse Rate [ From Monitor] Respiratory 18 17 Rate Respiratory 18 Rate [Bilateral Throughout] Blood Pressure 129/87 129/87 O2 Sat by Pulse 91 93 Oximetry 02/24/22 02/24/22 02/24/22 09:51 10:00 10:11 Temperature Pulse Rate 85 81 83 Pulse Rate [ Bilateral Throughout] Pulse Rate [ From Monitor] Respiratory 17 14 15 Rate Respiratory Rate [Bilateral Throughout] Blood Pressure 129/87 142/82 142/82 O2 Sat by Pulse 90 93 94 Oximetry 02/24/22 02/24/22 02/24/22 10:21 10:31 10:41 Temperature Pulse Rate 82 86 112 H Pulse Rate [ Bilateral Throughout] Pulse Rate [ From Monitor] Respiratory 16 15 18 Rate Respiratory Rate [Bilateral Throughout] Blood Pressure 142/82 142/82 142/82 O2 Sat by Pulse 94 95 81 L Oximetry 02/24/22 02/24/22 02/24/22 10:51 11:01 11:11 Temperature Pulse Rate 112 H 106 H 96 H Pulse Rate [ Bilateral Throughout] Pulse Rate [ From Monitor] Respiratory 19 16 19 Rate Respiratory Rate [Bilateral Throughout] Blood Pressure 142/82 140/85 140/85 O2 Sat by Pulse 82 L 88 88 Oximetry 02/24/22 02/24/22 02/24/22 11:21 11:31 11:41 Temperature Pulse Rate 89 89 84 Pulse Rate [ Bilateral Throughout] Pulse Rate [ From Monitor] Respiratory 14 13 16 Rate Respiratory Rate [Bilateral Throughout] Blood Pressure 140/85 140/85 140/85 O2 Sat by Pulse 88 89 89 Oximetry 02/24/22 02/24/22 02/24/22 11:51 12:00 12:11 Temperature 97.5 F L Pulse Rate 82 91 H 85 Pulse Rate [ Bilateral Throughout] Pulse Rate [ 94 H From Monitor] Respiratory 14 19 16 Rate Respiratory Rate [Bilateral Throughout] Blood Pressure 140/85 135/78 135/78 O2 Sat by Pulse 93 93 95 Oximetry 02/24/22 02/24/22 02/24/22 12:21 12:31 12:41 Temperature Pulse Rate 85 85 89 Pulse Rate [ Bilateral Throughout] Pulse Rate [ From Monitor] Respiratory 17 17 19 Rate Respiratory Rate [Bilateral Throughout] Blood Pressure 135/78 135/78 135/78 O2 Sat by Pulse 96 96 91 Oximetry 02/24/22 02/24/22 02/24/22 12:51 13:00 13:11 Temperature Pulse Rate 102 H 100 H 96 H Pulse Rate [ Bilateral Throughout] Pulse Rate [ From Monitor] Respiratory 22 28 H 20 Rate Respiratory Rate [Bilateral Throughout] Blood Pressure 135/78 143/86 143/86 O2 Sat by Pulse 81 L 89 89 Oximetry 02/24/22 02/24/22 02/24/22 13:21 13:31 13:41 Temperature Pulse Rate 98 H 101 H 102 H Pulse Rate [ Bilateral Throughout] Pulse Rate [ From Monitor] Respiratory 31 H 29 H 31 H Rate Respiratory Rate [Bilateral Throughout] Blood Pressure 135/78 135/78 135/78 O2 Sat by Pulse 88 87 90 Oximetry 02/24/22 02/24/22 02/24/22 13:51 14:00 14:11 Temperature Pulse Rate 102 H 102 H 100 H Pulse Rate [ Bilateral Throughout] Pulse Rate [ From Monitor] Respiratory 21 19 27 H Rate Respiratory Rate [Bilateral Throughout] Blood Pressure 135/78 145/95 145/95 O2 Sat by Pulse 88 83 L 85 Oximetry 02/24/22 02/24/22 02/24/22 14:21 14:31 14:41 Temperature Pulse Rate 97 H 99 H 99 H Pulse Rate [ Bilateral Throughout] Pulse Rate [ From Monitor] Respiratory 32 H 31 H 33 H Rate Respiratory Rate [Bilateral Throughout] Blood Pressure 145/95 145/95 145/95 O2 Sat by Pulse 86 78 L 82 L Oximetry 02/24/22 02/24/22 02/24/22 14:51 15:00 15:10 Temperature Pulse Rate 94 H 102 H 97 H Pulse Rate [ Bilateral Throughout] Pulse Rate [ From Monitor] Respiratory 30 H 28 H Rate Respiratory Rate [Bilateral Throughout] Blood Pressure 145/95 130/78 119/73 O2 Sat by Pulse 89 56 L 95 Oximetry 02/24/22 02/24/22 02/24/22 15:11 15:21 15:31 Temperature Pulse Rate 95 H 100 H 96 H Pulse Rate [ Bilateral Throughout] Pulse Rate [ From Monitor] Respiratory 14 22 19 Rate Respiratory Rate [Bilateral Throughout] Blood Pressure 119/73 119/73 119/73 O2 Sat by Pulse 84 87 95 Oximetry 02/24/22 02/24/22 02/24/22 15:41 15:51 16:00 Temperature 98.5 F Pulse Rate 94 H 94 H 96 H Pulse Rate [ Bilateral Throughout] Pulse Rate [ 96 H From Monitor] Respiratory 14 14 14 Rate Respiratory Rate [Bilateral Throughout] Blood Pressure 119/73 119/73 94/58 O2 Sat by Pulse 93 95 93 Oximetry 02/24/22 02/24/22 02/24/22 16:11 16:21 16:31 Temperature Pulse Rate 92 H 92 H 91 H Pulse Rate [ Bilateral Throughout] Pulse Rate [ From Monitor] Respiratory 14 14 14 Rate Respiratory Rate [Bilateral Throughout] Blood Pressure 94/58 94/58 94/58 O2 Sat by Pulse 94 94 94 Oximetry 02/24/22 02/24/22 02/24/22 16:41 16:51 17:01 Temperature Pulse Rate 105 H 92 H 92 H Pulse Rate [ Bilateral Throughout] Pulse Rate [ From Monitor] Respiratory 12 13 13 Rate Respiratory Rate [Bilateral Throughout] Blood Pressure 94/58 94/58 100/65 O2 Sat by Pulse 92 91 92 Oximetry 02/24/22 02/24/22 02/24/22 17:11 17:21 17:31 Temperature Pulse Rate 93 H 90 87 Pulse Rate [ Bilateral Throughout] Pulse Rate [ From Monitor] Respiratory 11 L 14 15 Rate Respiratory Rate [Bilateral Throughout] Blood Pressure 100/65 100/65 100/65 O2 Sat by Pulse 93 91 96 Oximetry 02/24/22 02/24/22 02/24/22 17:41 17:51 18:00 Temperature Pulse Rate 92 H 92 H 89 Pulse Rate [ Bilateral Throughout] Pulse Rate [ From Monitor] Respiratory 15 12 13 Rate Respiratory Rate [Bilateral Throughout] Blood Pressure 100/65 100/65 116/79 O2 Sat by Pulse 93 94 95 Oximetry 02/24/22 02/24/22 02/24/22 18:11 18:21 18:31 Temperature Pulse Rate 93 H 89 90 Pulse Rate [ Bilateral Throughout] Pulse Rate [ From Monitor] Respiratory 12 13 13 Rate Respiratory Rate [Bilateral Throughout] Blood Pressure 116/79 116/79 116/79 O2 Sat by Pulse 95 96 95 Oximetry 02/24/22 02/24/22 02/24/22 18:41 18:51 19:00 Temperature Pulse Rate 88 89 88 Pulse Rate [ Bilateral Throughout] Pulse Rate [ From Monitor] Respiratory 14 14 14 Rate Respiratory Rate [Bilateral Throughout] Blood Pressure 116/79 116/79 106/74 O2 Sat by Pulse 95 98 98 Oximetry Constitutional: other (on NRB) Eyes: non-icteric ENT: oropharynx moist Neck: supple Effort: normal Ascultation: Bilateral: diminished breath sounds, rhonchi Cardiovascular: regular rate and rhythm Gastrointestinal: normoactive bowel sounds, soft, non-tender (on o2 vest in place) Integumentary: normal Extremities: no cyanosis Neurologic: other (awake) CBC and BMP: 02/24/22 11:05 02/24/22 11:05 ABG, PT/INR, D-dimer: ABG ABG pH 7.319 pH Units (7.350-7.450) L 02/24/22 16:30 ABG pCO2 62.4 mm Hg 02/24/22 16:30 ABG pO2 65.3 mm Hg (80.0-90.0) L 02/24/22 16:30 ABG O2 Saturation 92.2 % (95.0-99.0) L 02/24/22 16:30 PT/INR, D-dimer PT 16.9 Sec. (12.2-14.9) H 02/18/22 21:02 INR 1.20 (0.87-1.13) H 02/18/22 21:02 Abnormal lab findings: Abnormal Labs 02/18/22 02/18/22 02/18/22 19:34 21:02 21:02 WBC RBC MCV 101 H MCH 34 H RDW 16.1 H Lymph % (Auto) [place] % (Auto) 12.4 H Lymph # (Auto) [place] # (Auto) 1.2 H Seg Neutrophils % 73.0 H Seg Neutrophils # PT 16.9 H INR 1.20 H ABG pH ABG pO2 ABG HCO3 ABG O2 Saturation ABG Base Excess ABG Hemoglobin Oxyhemoglobin Sodium Potassium Chloride Creatinine Glucose POC Glucose 116 H Calcium Phosphorus AST ALT Ammonia Albumin 02/18/22 02/18/22 02/18/22 21:02 22:45 23:22 WBC RBC MCV MCH RDW Lymph % (Auto) [place] % (Auto) Lymph # (Auto) [place] # (Auto) Seg Neutrophils % Seg Neutrophils # PT INR ABG pH ABG pO2 55.6 L ABG HCO3 28.4 H ABG O2 Saturation 91.5 L ABG Base Excess 3.8 H ABG Hemoglobin 13.2 L Oxyhemoglobin 89.6 L Sodium Potassium 5.1 H Chloride Creatinine Glucose 102 H POC Glucose Calcium Phosphorus AST 48 H ALT 64 H Ammonia 14.0 L Albumin 2.7 L 02/20/22 02/20/22 02/23/22 04:59 04:59 06:29 WBC 11.4 H RBC MCV 103 H MCH 33 H RDW 16.5 H Lymph % (Auto) 5.5 L [place] % (Auto) 12.1 H Lymph # (Auto) 0.6 L [place] # (Auto) 1.4 H Seg Neutrophils % 81.4 H Seg Neutrophils # 9.2 H PT INR ABG pH ABG pO2 ABG HCO3 ABG O2 Saturation ABG Base Excess ABG Hemoglobin Oxyhemoglobin Sodium Potassium Chloride Creatinine Glucose POC Glucose 113 H Calcium 8.2 L Phosphorus AST ALT Ammonia Albumin 02/23/22 02/23/22 02/24/22 11:22 16:10 00:02 WBC RBC MCV MCH RDW Lymph % (Auto) [place] % (Auto) Lymph # (Auto) [place] # (Auto) Seg Neutrophils % Seg Neutrophils # PT INR ABG pH ABG pO2 ABG HCO3 ABG O2 Saturation ABG Base Excess ABG Hemoglobin Oxyhemoglobin Sodium Potassium Chloride Creatinine Glucose POC Glucose 108 H 115 H 109 H Calcium Phosphorus AST ALT Ammonia Albumin 02/24/22 02/24/22 02/24/22 11:05 11:05 13:20 WBC RBC 3.55 L MCV 100 H MCH 34 H RDW 15.6 H Lymph % (Auto) [place] % (Auto) Lymph # (Auto) [place] # (Auto) Seg Neutrophils % Seg Neutrophils # PT INR ABG pH ABG pO2 ABG HCO3 ABG O2 Saturation ABG Base Excess ABG Hemoglobin Oxyhemoglobin Sodium 146 H Potassium 3.2 L D Chloride 108.4 H Creatinine 0.5 L Glucose POC Glucose 111 H Calcium 7.9 L Phosphorus 2.20 L AST ALT Ammonia Albumin 02/24/22 02/24/22 16:30 17:03 WBC RBC MCV MCH RDW Lymph % (Auto) [place] % (Auto) Lymph # (Auto) [place] # (Auto) Seg Neutrophils % Seg Neutrophils # PT INR ABG pH 7.319 L ABG pO2 65.3 L ABG HCO3 31.3 H ABG O2 Saturation 92.2 L ABG Base Excess 3.8 H ABG Hemoglobin 12.0 L Oxyhemoglobin 90.3 L Sodium Potassium Chloride Creatinine Glucose POC Glucose 108 H Calcium Phosphorus AST ALT Ammonia Albumin
[2022-02-24 21:12] LABS: Blood Urea Nitrogen 8 mg/dL (9-20); Calcium 7.6 mg/dL (8.4-10.2); Hemolysis Index 10
[2022-02-24 21:22] LABS: BUN/Creatinine Ratio 20
[2022-02-24] MEDS: SENNOSIDES/DOCUSATE SODIUM 8.6/50 MG TAB FEEDTUBE SCH (21:23)
[2022-02-24] MEDS ORDERED: FAMOTIDINE 20 MG/2 ML INJ IV SCH (22:00)
[2022-02-25] MEDS: ALBUTEROL 2.5 MG/3 ML NEBU IH SCH ×6 (00:29→20:03)
[2022-02-25] MEDS: SODIUM CHLORIDE 0.45% 1000 ML 1,000 ML IV SCH (03:25)
[2022-02-25] MEDS: fentaNYL DRIP Premix 2,000 MCG/100 ML BAG IV SCH (03:26)
[2022-02-25 04:29] LABS: Hematocrit 31.5 % (35.5-45.6); Hemoglobin 10.2 gm/dl (11.8-15.2); Mean Corpuscular HGB Conc 33 % (32-34); Mean Corpuscular Volume 103 fl (84-94); Platelet Count 253 K/mm3 (140-440); Red Blood Count 3.07 M/mm3 (3.65-5.03); Red Cell Distribution Width 15.6 % (13.2-15.2)
[2022-02-25 04:52] LABS: Blood Urea Nitrogen 9 mg/dL (9-20); Hemolysis Index 7
[2022-02-25 05:06] LABS: BUN/Creatinine Ratio 18
--- NOTE | 2022-02-25 05:22 | XRay Report ---
XR chest 1V ap INDICATION / CLINICAL INFORMATION: follow up respiratory failure. COMPARISON: Radiograph from yesterday. FINDINGS: SUPPORT DEVICES: Unchanged. HEART /PULMONARY VASCULATURE: No significant abnormality. LUNGS / PLEURA: Slight interval improvement in basilar predominant airspace disease. No pneumothorax. IMPRESSION: 1. Slight interval improvement. Signer Name: Loy Craig MD Signed: 02/25/2022 5:18 AM Workstation Name: [id number]
[2022-02-25 05:32] LABS: ABG Base Excess 5.6 mmol/L (-2.0-3.0); ABG HCO3 32.5 mmol/L (20.0-26.0); ABG Methemoglobin 0.7 % (0.0-1.5); ABG Oxygen Saturation 96.7 % (95.0-99.0); ABG PCO2 59.8 mm Hg; ABG PH 7.353 pH Units (7.350-7.450); ABG PO2 84.2 mm Hg (80.0-90.0)
[2022-02-25] MEDS: HEPARIN 5,000 UNIT/1 ML VIAL SUB-Q SCH ×3 (05:44→21:00)
[2022-02-25] MEDS ORDERED: POTASSIUM CHLORIDE 20 MEQ PACKET FEEDTUBE SCH (08:45)
[2022-02-25] MEDS: SENNOSIDES/DOCUSATE SODIUM 8.6/50 MG TAB FEEDTUBE SCH ×2 (09:46→21:00)
[2022-02-25] MEDS: FAMOTIDINE 20 MG TAB FEEDTUBE SCH ×2 (09:47→21:00)
--- NOTE | 2022-02-25 11:36 | Progress Note ---
Assessment and Plan 61 y/o male with abnormal CT of chest. 02/25/22: Bronch tentatively planned for tomorrow with therapeutic scope. Awaiting GI lab to give a time. NPO after midnight. Continue high PEEP 02/24/22: WIll attempt to bronch tomorrow morning. NPO after midnight. Just received word from GI lab they are not able to do bronch tomorrow. Cancel NPO order. Continue to feed patient. Repeat ABG in AM along with CXR. 02/21/22: No new pulm recs for today. Please obtain repeat CXR likely on Thursday. If patient happens to get worse, likely not a candidate for bipap given his weak cough and mental state and inability to communicate. If worsens and requires intubation, will bronch then under emergent circumstances if no POA or family is able to be located. Continue CPT. Will discuss with RT about NT suctioning. 02/20/22: Saw speech while on the floor. Would like patient to be NPO now. Discussed with nurse on floor and with IMS. Same recs pulm way as yesterday. Would benefit from bronch if able to get consent as this is not emergent. Continue CPT and q shift NT suctioning. Reviewed admission in the past and of note, patient was recently admitted last month and had a CXR done on the 29 of January that was normal. Given this p atient's medical history and the history that I obtained from the nursing staff that at the skilled nursing he was eating solid foods, I suspect that this is aspiration, possibly of a foreign body (most likely food) with atelectasis of the right lower lobe. It is highly unlikely that a mass evolved in size in less than a months time and patient, besides age, has no real risk factors for lung carcinoma. Discussed with the nurse and unfortunately there is no identifiable person that is able to give consent. Bronchoscopy is needed in the case to evaluate to see if lung mass is there vs foreign body, but at this time not able to do. In the meanwhile will recommend the following. 1. Will order CPT with neb therapy 3x daily 2. Suggest maybe NT suctioning q shift. May use nasal trumpet, however do not leave this device in the patient 3. Aspiration precautions 4. Consider speech eval to assess swallowing. Will continue to follow. CCT 31 minutes. Subjective Date of service: 02/25/22 Interval history: Some soft blood pressures over the last 24 hours. Fent decreased. CXR is stable to improved. Oxygenation is better. Down to 65% Objective Vital Signs - 12hr 02/24/22 02/24/22 02/25/22 23:41 23:51 00:00 Temperature Pulse Rate 87 87 86 Pulse Rate [ Bilateral Throughout] Pulse Rate [ From Monitor] Pulse Rate [ Posterior Bilateral Throughout] Respiratory 14 14 13 Rate Respiratory Rate [Bilateral Throughout] Respiratory Rate [Posterior Bilateral Throughout] Blood Pressure 103/57 103/57 91/52 O2 Sat by Pulse 95 97 100 Oximetry 02/25/22 02/25/22 02/25/22 00:11 00:21 00:30 Temperature Pulse Rate 85 88 87 Pulse Rate [ 86 Bilateral Throughout] Pulse Rate [ From Monitor] Pulse Rate [ 82 Posterior Bilateral Throughout] Respiratory 12 13 1 L Rate Respiratory 15 Rate [Bilateral Throughout] Respiratory 15 Rate [Posterior Bilateral Throughout] Blood Pressure 91/52 91/52 91/52 O2 Sat by Pulse 100 100 100 Oximetry 02/25/22 02/25/22 02/25/22 00:31 00:41 00:51 Temperature Pulse Rate 89 86 88 Pulse Rate [ Bilateral Throughout] Pulse Rate [ From Monitor] Pulse Rate [ Posterior Bilateral Throughout] Respiratory 12 14 13 Rate Respiratory Rate [Bilateral Throughout] Respiratory Rate [Posterior Bilateral Throughout] Blood Pressure 91/52 91/52 91/52 O2 Sat by Pulse 100 100 100 Oximetry 02/25/22 02/25/22 02/25/22 01:00 01:10 01:11 Temperature Pulse Rate 88 86 86 Pulse Rate [ Bilateral Throughout] Pulse Rate [ From Monitor] Pulse Rate [ Posterior Bilateral Throughout] Respiratory 13 14 Rate Respiratory Rate [Bilateral Throughout] Respiratory Rate [Posterior Bilateral Throughout] Blood Pressure 83/54 102/63 O2 Sat by Pulse 97 100 Oximetry 02/25/22 02/25/22 02/25/22 01:21 01:31 01:40 Temperature Pulse Rate 86 85 86 Pulse Rate [ Bilateral Throughout] Pulse Rate [ From Monitor] Pulse Rate [ Posterior Bilateral Throughout] Respiratory 14 14 Rate Respiratory Rate [Bilateral Throughout] Respiratory Rate [Posterior Bilateral Throughout] Blood Pressure 102/63 102/63 O2 Sat by Pulse 100 100 Oximetry 02/25/22 02/25/22 02/25/22 01:41 01:51 02:00 Temperature Pulse Rate 88 89 83 Pulse Rate [ Bilateral Throughout] Pulse Rate [ From Monitor] Pulse Rate [ Posterior Bilateral Throughout] Respiratory 13 14 14 Rate Respiratory Rate [Bilateral Throughout] Respiratory Rate [Posterior Bilateral Throughout] Blood Pressure 102/63 102/63 88/64 O2 Sat by Pulse 100 100 100 Oximetry 02/25/22 02/25/22 02/25/22 02:11 02:15 02:21 Temperature Pulse Rate 86 86 Pulse Rate [ Bilateral Throughout] Pulse Rate [ From Monitor] Pulse Rate [ Posterior Bilateral Throughout] Respiratory 13 13 Rate Respiratory Rate [Bilateral Throughout] Respiratory Rate [Posterior Bilateral Throughout] Blood Pressure 88/64 88/64 O2 Sat by Pulse 99 100 100 Oximetry 02/25/22 02/25/22 02/25/22 02:31 02:41 02:51 Temperature Pulse Rate 85 79 84 Pulse Rate [ Bilateral Throughout] Pulse Rate [ From Monitor] Pulse Rate [ Posterior Bilateral Throughout] Respiratory 14 13 14 Rate Respiratory Rate [Bilateral Throughout] Respiratory Rate [Posterior Bilateral Throughout] Blood Pressure 88/64 88/64 88/64 O2 Sat by Pulse 100 100 99 Oximetry 02/25/22 02/25/22 02/25/22 03:00 03:11 03:21 Temperature Pulse Rate 83 84 86 Pulse Rate [ Bilateral Throughout] Pulse Rate [ From Monitor] Pulse Rate [ Posterior Bilateral Throughout] Respiratory 13 14 13 Rate Respiratory Rate [Bilateral Throughout] Respiratory Rate [Posterior Bilateral Throughout] Blood Pressure 90/46 90/46 90/46 O2 Sat by Pulse 100 98 99 Oximetry 02/25/22 02/25/22 02/25/22 03:26 03:30 03:41 Temperature Pulse Rate 79 95 H 84 Pulse Rate [ Bilateral Throughout] Pulse Rate [ From Monitor] Pulse Rate [ Posterior Bilateral Throughout] Respiratory 13 14 13 Rate Respiratory Rate [Bilateral Throughout] Respiratory Rate [Posterior Bilateral Throughout] Blood Pressure 107/41 107/41 O2 Sat by Pulse 97 100 97 Oximetry 02/25/22 02/25/22 02/25/22 03:51 04:01 04:07 Temperature Pulse Rate 85 82 81 Pulse Rate [ 84 Bilateral Throughout] Pulse Rate [ From Monitor] Pulse Rate [ 81 Posterior Bilateral Throughout] Respiratory 12 14 Rate Respiratory 14 Rate [Bilateral Throughout] Respiratory 14 Rate [Posterior Bilateral Throughout] Blood Pressure 107/41 85/27 85/27 O2 Sat by Pulse 97 98 98 Oximetry 02/25/22 02/25/22 02/25/22 04:11 04:21 04:31 Temperature Pulse Rate 87 83 95 H Pulse Rate [ Bilateral Throughout] Pulse Rate [ From Monitor] Pulse Rate [ Posterior Bilateral Throughout] Respiratory 13 14 14 Rate Respiratory Rate [Bilateral Throughout] Respiratory Rate [Posterior Bilateral Throughout] Blood Pressure 85/27 85/27 85/27 O2 Sat by Pulse 97 100 100 Oximetry 02/25/22 02/25/22 02/25/22 04:41 04:51 05:00 Temperature Pulse Rate 87 99 H 98 H Pulse Rate [ Bilateral Throughout] Pulse Rate [ From Monitor] Pulse Rate [ Posterior Bilateral Throughout] Respiratory 14 14 15 Rate Respiratory Rate [Bilateral Throughout] Respiratory Rate [Posterior Bilateral Throughout] Blood Pressure 85/27 85/27 99/68 O2 Sat by Pulse 98 100 100 Oximetry 02/25/22 02/25/22 02/25/22 05:11 05:18 05:21 Temperature Pulse Rate 97 H 97 H 90 Pulse Rate [ Bilateral Throughout] Pulse Rate [ From Monitor] Pulse Rate [ Posterior Bilateral Throughout] Respiratory 8 L 12 Rate Respiratory Rate [Bilateral Throughout] Respiratory Rate [Posterior Bilateral Throughout] Blood Pressure 99/68 99/68 O2 Sat by Pulse 99 98 Oximetry 02/25/22 02/25/22 02/25/22 05:31 05:41 05:51 Temperature Pulse Rate 92 H 86 88 Pulse Rate [ Bilateral Throughout] Pulse Rate [ From Monitor] Pulse Rate [ Posterior Bilateral Throughout] Respiratory 13 10 L 13 Rate Respiratory Rate [Bilateral Throughout] Respiratory Rate [Posterior Bilateral Throughout] Blood Pressure 99/68 99/68 99/68 O2 Sat by Pulse 99 99 96 Oximetry 02/25/22 02/25/22 02/25/22 06:00 06:11 06:21 Temperature Pulse Rate 83 87 84 Pulse Rate [ Bilateral Throughout] Pulse Rate [ From Monitor] Pulse Rate [ Posterior Bilateral Throughout] Respiratory 10 L 12 13 Rate Respiratory Rate [Bilateral Throughout] Respiratory Rate [Posterior Bilateral Throughout] Blood Pressure 105/44 105/44 105/44 O2 Sat by Pulse 99 100 99 Oximetry 02/25/22 02/25/22 02/25/22 06:31 06:41 06:51 Temperature Pulse Rate 83 79 87 Pulse Rate [ Bilateral Throughout] Pulse Rate [ From Monitor] Pulse Rate [ Posterior Bilateral Throughout] Respiratory 11 L 14 13 Rate Respiratory Rate [Bilateral Throughout] Respiratory Rate [Posterior Bilateral Throughout] Blood Pressure 105/44 105/44 105/44 O2 Sat by Pulse 99 99 99 Oximetry 02/25/22 02/25/22 02/25/22 07:00 07:11 07:21 Temperature 97.9 F Pulse Rate 79 88 85 Pulse Rate [ Bilateral Throughout] Pulse Rate [ 79 From Monitor] Pulse Rate [ Posterior Bilateral Throughout] Respiratory 11 L 14 13 Rate Respiratory Rate [Bilateral Throughout] Respiratory Rate [Posterior Bilateral Throughout] Blood Pressure 97/57 97/57 97/57 O2 Sat by Pulse 98 100 100 Oximetry 02/25/22 02/25/22 02/25/22 07:31 07:41 07:51 Temperature Pulse Rate 83 85 83 Pulse Rate [ Bilateral Throughout] Pulse Rate [ From Monitor] Pulse Rate [ Posterior Bilateral Throughout] Respiratory 15 14 14 Rate Respiratory Rate [Bilateral Throughout] Respiratory Rate [Posterior Bilateral Throughout] Blood Pressure 97/57 97/57 97/57 O2 Sat by Pulse 100 100 100 Oximetry 02/25/22 02/25/22 02/25/22 08:00 08:11 08:21 Temperature Pulse Rate 83 77 78 Pulse Rate [ Bilateral Throughout] Pulse Rate [ From Monitor] Pulse Rate [ Posterior Bilateral Throughout] Respiratory 14 12 13 Rate Respiratory Rate [Bilateral Throughout] Respiratory Rate [Posterior Bilateral Throughout] Blood Pressure 91/51 91/51 91/51 O2 Sat by Pulse 100 100 100 Oximetry 02/25/22 02/25/22 02/25/22 08:31 08:41 08:42 Temperature Pulse Rate 88 81 Pulse Rate [ 80 Bilateral Throughout] Pulse Rate [ From Monitor] Pulse Rate [ 81 Posterior Bilateral Throughout] Respiratory 15 14 Rate Respiratory 15 Rate [Bilateral Throughout] Respiratory 15 Rate [Posterior Bilateral Throughout] Blood Pressure 91/51 91/51 O2 Sat by Pulse 100 100 Oximetry 02/25/22 02/25/22 02/25/22 08:51 09:00 09:11 Temperature Pulse Rate 81 82 95 H Pulse Rate [ Bilateral Throughout] Pulse Rate [ From Monitor] Pulse Rate [ Posterior Bilateral Throughout] Respiratory 15 15 13 Rate Respiratory Rate [Bilateral Throughout] Respiratory Rate [Posterior Bilateral Throughout] Blood Pressure 91/51 107/50 107/50 O2 Sat by Pulse 100 99 98 Oximetry 02/25/22 02/25/22 02/25/22 09:21 09:31 09:41 Temperature Pulse Rate 86 90 86 Pulse Rate [ Bilateral Throughout] Pulse Rate [ From Monitor] Pulse Rate [ Posterior Bilateral Throughout] Respiratory 12 13 10 L Rate Respiratory Rate [Bilateral Throughout] Respiratory Rate [Posterior Bilateral Throughout] Blood Pressure 91/51 91/51 91/51 O2 Sat by Pulse 99 98 99 Oximetry 02/25/22 02/25/22 02/25/22 09:51 10:00 10:11 Temperature Pulse Rate 83 85 83 Pulse Rate [ Bilateral Throughout] Pulse Rate [ From Monitor] Pulse Rate [ Posterior Bilateral Throughout] Respiratory 13 11 L 13 Rate Respiratory Rate [Bilateral Throughout] Respiratory Rate [Posterior Bilateral Throughout] Blood Pressure 91/51 80/46 99/53 O2 Sat by Pulse 97 99 97 Oximetry 02/25/22 02/25/22 10:21 10:31 Temperature Pulse Rate 83 83 Pulse Rate [ Bilateral Throughout] Pulse Rate [ From Monitor] Pulse Rate [ Posterior Bilateral Throughout] Respiratory 13 14 Rate Respiratory Rate [Bilateral Throughout] Respiratory Rate [Posterior Bilateral Throughout] Blood Pressure 80/46 80/46 O2 Sat by Pulse 99 98 Oximetry Constitutional: other (on NRB) Eyes: non-icteric ENT: oropharynx moist Neck: supple Effort: normal Ascultation: Bilateral: diminished breath sounds, rhonchi Cardiovascular: regular rate and rhythm Gastrointestinal: normoactive bowel sounds, soft, non-tender (on o2 vest in place) Integumentary: normal Extremities: no cyanosis Neurologic: other (awake) CBC and BMP: 02/25/22 04:12 02/25/22 04:12 ABG, PT/INR, D-dimer: ABG ABG pH 7.353 pH Units (7.350-7.450) 02/25/22 05:05 ABG pCO2 59.8 mm Hg 02/25/22 05:05 ABG pO2 84.2 mm Hg (80.0-90.0) 02/25/22 05:05 ABG O2 Saturation 96.7 % (95.0-99.0) 02/25/22 05:05 PT/INR, D-dimer PT 16.9 Sec. (12.2-14.9) H 02/18/22 21:02 INR 1.20 (0.87-1.13) H 02/18/22 21:02 Abnormal lab findings: Abnormal Labs 02/18/22 02/18/22 02/18/22 19:34 21:02 21:02 WBC RBC Hgb Hct MCV 101 H MCH 34 H RDW 16.1 H Lymph % (Auto) [place] % (Auto) 12.4 H Lymph # (Auto) [place] # (Auto) 1.2 H Seg Neutrophils % 73.0 H Seg Neutrophils # PT 16.9 H INR 1.20 H ABG pH ABG pO2 ABG HCO3 ABG O2 Saturation ABG Base Excess ABG Hemoglobin Oxyhemoglobin Sodium Potassium Chloride BUN Creatinine Glucose POC Glucose 116 H Calcium Phosphorus AST ALT Ammonia Albumin 02/18/22 02/18/22 02/18/22 21:02 22:45 23:22 WBC RBC Hgb Hct MCV MCH RDW Lymph % (Auto) [place] % (Auto) Lymph # (Auto) [place] # (Auto) Seg Neutrophils % Seg Neutrophils # PT INR ABG pH ABG pO2 55.6 L ABG HCO3 28.4 H ABG O2 Saturation 91.5 L ABG Base Excess 3.8 H ABG Hemoglobin 13.2 L Oxyhemoglobin 89.6 L Sodium Potassium 5.1 H Chloride BUN Creatinine Glucose 102 H POC Glucose Calcium Phosphorus AST 48 H ALT 64 H Ammonia 14.0 L Albumin 2.7 L 02/20/22 02/20/22 02/23/22 04:59 04:59 06:29 WBC 11.4 H RBC Hgb Hct MCV 103 H MCH 33 H RDW 16.5 H Lymph % (Auto) 5.5 L [place] % (Auto) 12.1 H Lymph # (Auto) 0.6 L [place] # (Auto) 1.4 H Seg Neutrophils % 81.4 H Seg Neutrophils # 9.2 H PT INR ABG pH ABG pO2 ABG HCO3 ABG O2 Saturation ABG Base Excess ABG Hemoglobin Oxyhemoglobin Sodium Potassium Chloride BUN Creatinine Glucose POC Glucose 113 H Calcium 8.2 L Phosphorus AST ALT Ammonia Albumin 02/23/22 02/23/22 02/24/22 11:22 16:10 00:02 WBC RBC Hgb Hct MCV MCH RDW Lymph % (Auto) [place] % (Auto) Lymph # (Auto) [place] # (Auto) Seg Neutrophils % Seg Neutrophils # PT INR ABG pH ABG pO2 ABG HCO3 ABG O2 Saturation ABG Base Excess ABG Hemoglobin Oxyhemoglobin Sodium Potassium Chloride BUN Creatinine Glucose POC Glucose 108 H 115 H 109 H Calcium Phosphorus AST ALT Ammonia Albumin 02/24/22 02/24/22 02/24/22 11:05 11:05 13:20 WBC RBC 3.55 L Hgb Hct MCV 100 H MCH 34 H RDW 15.6 H Lymph % (Auto) [place] % (Auto) Lymph # (Auto) [place] # (Auto) Seg Neutrophils % Seg Neutrophils # PT INR ABG pH ABG pO2 ABG HCO3 ABG O2 Saturation ABG Base Excess ABG Hemoglobin Oxyhemoglobin Sodium 146 H Potassium 3.2 L D Chloride 108.4 H BUN Creatinine 0.5 L Glucose POC Glucose 111 H Calcium 7.9 L Phosphorus 2.20 L AST ALT Ammonia Albumin 02/24/22 02/24/22 02/24/22 16:30 17:03 20:25 WBC RBC Hgb Hct MCV MCH RDW Lymph % (Auto) [place] % (Auto) Lymph # (Auto) [place] # (Auto) Seg Neutrophils % Seg Neutrophils # PT INR ABG pH 7.319 L ABG pO2 65.3 L ABG HCO3 31.3 H ABG O2 Saturation 92.2 L ABG Base Excess 3.8 H ABG Hemoglobin 12.0 L Oxyhemoglobin 90.3 L Sodium Potassium Chloride 107.9 H BUN 8 L Creatinine 0.4 L Glucose POC Glucose 108 H Calcium 7.6 L Phosphorus 4.60 H D AST ALT Ammonia Albumin 02/25/22 02/25/22 02/25/22 04:12 04:12 05:05 WBC RBC 3.07 L Hgb 10.2 L Hct 31.5 L MCV 103 H MCH 33 H RDW 15.6 H Lymph % (Auto) [place] % (Auto) Lymph # (Auto) [place] # (Auto) Seg Neutrophils % Seg Neutrophils # PT INR ABG pH ABG pO2 ABG HCO3 32.5 H ABG O2 Saturation ABG Base Excess 5.6 H ABG Hemoglobin 10.8 L Oxyhemoglobin 94.8 L Sodium Potassium 3.5 L Chloride 107.7 H BUN Creatinine 0.5 L Glucose POC Glucose Calcium 7.0 L Phosphorus AST ALT Ammonia Albumin
--- NOTE | 2022-02-25 12:12 | Progress Note ---
<CODYCARSON ZiaRadha - Last Filed: 02/25/22 12:08> Assessment and Plan Assessment and plan: This is a 51-year-old male with HTN, seizure disorder, Down syndrome, HLD, partial blindness admitted with aspiration pneumonia, probable bronchogenic carcinoma, acute hypoxic respiratory failure and acute encephalopathy Neuro: Acute encephalopathy, h/o seizure disorder, Down syndrome, partial blindness -Patient currently sedated with fentanyl and propofol -RASS goal 0 to -1 -Reorientation as needed -Maintain sleep-wake cycle -aspiration/seizure precautions -As needed analgesia -CT head showed no acute abnormality -Continue Keppra -Neurology consulted, appreciate recommendations Cardiac: h/o HTN, HLD -Cardiology consulted, appreciate recommendations -Blood pressure monitoring per protocol -d/c amlodipine Respiratory: Acute hypoxic respiratory failure, r/o bronchogenic carcinoma -[facility] consulted, appreciate recommendations -Intubated on 02/24 with a 8.0 at 23 at the lips -Vent settings: AC rate 14, TV 360, PEEP 8, FO2 65% -See RT notes for titration -VAP bundle -SPO2 monitoring -Bronch in AM tentatively GI: Moderate protein calorie malnutrition -24 hours -1164 mL -PPI -NTR consulted for tube feedings -BR: Senokot-S : Hypokalemia -Replete potassium, Replete mag (1.7) -Monitor intake and output -Renally dose medications -Avoid nephrotoxic medications -Trend BMP ID: Aspiration PNA -S/p Rocephin for 5 days (02/19-02/24) -Monitor WBC and temperature curve Endo: NAD -Avoid hypoglycemia -Accu-Cheks every 6 -Avoid hypoglycemia Heme: NAD -Trend CBC -Transfuse hemoglobin less than 7 -SCDs to BLE while in bed The high probability of a clinically significant, sudden or life threatening deterioration of the [resp] system(s) required my full and direct attention, intervention and personal management. The aggregate critical care time was [60] minutes. This time is in addition to time spent performing reported procedures but includes the following: [x] Data Review and interpretation [x] Patient assessment and monitoring of vital signs [x] Documentation [x] Medication orders and management Disposition Plan: icu Total Time Spent with Patient (Minutes): 60 History Interval history: This is a 51-year-old male with HTN, seizure disorder, Down syndrome, HLD, and partial blindness was a resident of the [facility] who presented to emergency department on 02/19 for evaluation of change in mental status. Of note patient was recently discharged a few weeks ago for a seizure disorder and UTI. Upon arrival to the emergency department patient was noted to be hypoxic with SPO2 in the 80s on a nonrebreather with difficulty breathing. Work-up in the emergency department revealed CXR which showed elevation of the right hemidiaphragm, right lower lung atelectasis and effusion with mild increased pulmonary vascul arity but no pneumothorax and CT of the head did not show any acute abnormality. 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 Patient was admitted to the hospitalist service to the floor. Hospital course to date: 02/19/2022. Consult pulmonary for further evaluation and possible bronchoscopy. I suspect patient has component of aspiration pneumonia as well. We will obtain a speech therapy evaluation for swallowing and start empiric antibiotics. Continue O2 supplementation to maintain sats greater than 92%. 02/20/2022. Pulmonary feels that the abnormality seen on CT scan is highly unlikely for a mass given negative chest x-ray 1 month ago and no risk factors. Etiology is likely secondary to aspiration from possibly a foreign body most likely food with atelectasis of the right lower lobe. Bronchoscopy is needed in the case to evaluate to see if lung mass is there vs foreign body, but at this time not able to do because no identifiable person that is able to give consent. Continue aspiration precautions and continue speech therapy evaluation for swallowing. Keep n.p.o. for now 02/21/2022. Patient remains NPO. Consider DHT placement. Follow-up with speech therapy evaluation. Pulmonology to consider bronchoscopy if able to obtain consent. Continue IV antibiotics for aspiration pneumonia 02/22/2022. Patient remains NPO. Consider DHT placement. Follow-up with speech therapy evaluation. Pulmonology to consider bronchoscopy if able to obtain consent. Continue IV antibiotics for aspiration pneumonia 02/23/2022. DHT placed yesterday. TF initiated for nutritional support. Patient currently with strict NPO. Aspiration precautions. Pulmonology to consider bronchoscopy if able to obtain consent. Continue IV antibiotics for aspiration pneumonia 02/24: Patient was transferred to the ICU for further monitoring. This morning patient remained on high flow nasal cannula on 40 L/100% and despite repeated nasotracheal suctioning patient SPO2 remained in the 80s. Patient was placed on nonrebreather and SPO2 increased to upper 80s. Patient was subsequently intubated by anesthesia. Started on sedation. 02/25: Patient remains sedated on fentanyl, potassium and magnesium repleted. IV fluids and amlodipine discontinued. Possible bronchoscopy tomorrow. Hospitalist Physical - Constitutional Vitals: Temp Pulse Resp BP Pulse Ox 97.9 F 81 14 95/50 100 02/25/22 07:00 02/25/22 12:00 02/25/22 12:00 02/25/22 12:00 02/25/22 12:00 General appearance: Present: no acute distress, well-nourished HEART Score - HEART Score Troponin: Troponin T < 0.010 ng/mL (0.00-0.029) 02/18/22 21:02 Results - Labs CBC & Chem 7: 02/25/22 04:12 02/25/22 04:12 Labs: Laboratory Last Values WBC 9.9 K/mm3 (4.5-11.0) 02/25/22 04:12 RBC 3.07 M/mm3 (3.65-5.03) L 02/25/22 04:12 Hgb 10.2 gm/dl (11.8-15.2) L 02/25/22 04:12 Hct 31.5 % (35.5-45.6) L 02/25/22 04:12 MCV 103 fl (84-94) H 02/25/22 04:12 MCH 33 pg (28-32) H 02/25/22 04:12 MCHC 33 % (32-34) 02/25/22 04:12 RDW 15.6 % (13.2-15.2) H 02/25/22 04:12 Plt Count 253 K/mm3 (140-440) 02/25/22 04:12 Lymph % (Auto) 5.5 % (13.4-35.0) L 02/20/22 04:59 Swisher % (Auto) 12.1 % (0.0-7.3) H 02/20/22 04:59 Eos % (Auto) 0.2 % (0.0-4.3) 02/20/22 04:59 Baso % (Auto) 0.8 % (0.0-1.8) 02/20/22 04:59 Lymph # (Auto) 0.6 K/mm3 (1.2-5.4) L 02/20/22 04:59 Swisher # (Auto) 1.4 K/mm3 (0.0-0.8) H 02/20/22 04:59 Eos # (Auto) 0.0 K/mm3 (0.0-0.4) 02/20/22 04:59 Baso # (Auto) 0.1 K/mm3 (0.0-0.1) 02/20/22 04:59 Seg Neutrophils % 81.4 % (40.0-70.0) H 02/20/22 04:59 Seg Neutrophils # 9.2 K/mm3 (1.8-7.7) H 02/20/22 04:59 PT 16.9 Sec. (12.2-14.9) H 02/18/22 21:02 INR 1.20 (0.87-1.13) H 02/18/22 21:02 ABG pH 7.353 pH Units (7.350-7.450) 02/25/22 05:05 ABG pCO2 59.8 mm Hg 02/25/22 05:05 ABG pO2 84.2 mm Hg (80.0-90.0) 02/25/22 05:05 ABG HCO3 32.5 mmol/L (20.0-26.0) H 02/25/22 05:05 ABG O2 Saturation 96.7 % (95.0-99.0) 02/25/22 05:05 ABG O2 Content 14.5 (0.0-44) 02/25/22 05:05 ABG Base Excess 5.6 mmol/L (-2.0-3.0) H 02/25/22 05:05 ABG Hemoglobin 10.8 gm/dl (14.0-18.0) L 02/25/22 05:05 ABG Carboxyhemoglobin 1.1 % (0.0-5.0) 02/25/22 05:05 ABG Methemoglobin 0.7 % (0.0-1.5) 02/25/22 05:05 Oxyhemoglobin 94.8 % (95.0-99.0) L 02/25/22 05:05 FiO2 75 % 02/25/22 05:05 Sodium 142 mmol/L (137-145) 02/25/22 04:12 Potassium 3.5 mmol/L (3.6-5.0) L 02/25/22 04:12 Chloride 107.7 mmol/L (98-107) H 02/25/22 04:12 Carbon Dioxide 28 mmol/L (22-30) 02/25/22 04:12 Anion Gap 10 mmol/L 02/25/22 04:12 BUN 9 mg/dL (9-20) 02/25/22 04:12 Creatinine 0.5 mg/dL (0.8-1.3) L 02/25/22 04:12 Estimated GFR > 60 ml/min 02/25/22 04:12 BUN/Creatinine Ratio 18 % 02/25/22 04:12 Glucose 99 mg/dL (75-100) 02/25/22 04:12 POC Glucose 101 mg/dL (70-105) 02/25/22 04:26 Lactic Acid 1.20 mmol/L (0.7-2.0) 02/18/22 21:02 Calcium 7.0 mg/dL (8.4-10.2) L 02/25/22 04:12 Phosphorus 3.00 mg/dL (2.5-4.5) D 02/25/22 04:12 Magnesium 1.70 mg/dL (1.7-2.3) 02/24/22 20:25 Total Bilirubin 0.50 mg/dL (0.1-1.2) 02/18/22 21:02 AST 48 units/L (5-40) H 02/18/22 21:02 ALT 64 units/L (7-56) H 02/18/22 21:02 Alkaline Phosphatase 88 units/L (35-129) 02/18/22 21:02 Ammonia 14.0 umol/L (25-60) L 02/18/22 23:22 Troponin T < 0.010 ng/mL (0.00-0.029) 02/18/22 21:02 Total Protein 7.2 g/dL (6.3-8.2) 02/18/22 21:02 Albumin 2.7 g/dL (3.9-5) L 02/18/22 21:02 Albumin/Globulin Ratio 0.6 % 02/18/22 21:02 Urine Color Dark yellow (Yellow) 02/18/22 Unknown Urine Turbidity Clear (Clear) 02/18/22 Unknown Urine pH 7.0 (5.0-7.0) 02/18/22 Unknown Ur Specific Lyles 1.015 (1.003-1.030) 02/18/22 Unknown Urine Protein <15 mg/dl mg/dL (Negative) 02/18/22 Unknown Urine Glucose (UA) Negative mg/dL (Negative) 02/18/22 Unknown Urine Ketones Negative mg/dL (Negative) 02/18/22 Unknown Urine Blood Trace (Negative) 02/18/22 Unknown Urine Nitrite Negative (Negative) 02/18/22 Unknown Urine Bilirubin Negative (Negative) 02/18/22 Unknown Urine Urobilinogen < 2.0 mg/dL (<2.0) 02/18/22 Unknown Ur Leukocyte Esterase Negative (Negative) 02/18/22 Unknown Urine WBC (Auto) 2.0 /HPF (0.0-6.0) 02/18/22 Unknown Urine RBC (Auto) 9.0 /HPF (0.0-6.0) 02/18/22 Unknown Urine Mucus Few /HPF 02/18/22 Unknown Urine Opiates Screen Negative 02/18/22 Unknown Urine Methadone Screen Negative 02/18/22 Unknown Ur Barbiturates Screen Negative 02/18/22 Unknown Ur Phencyclidine Scrn Negative 02/18/22 Unknown Ur Amphetamines Screen Negative 02/18/22 Unknown U Benzodiazepines Scrn Negative 02/18/22 Unknown Urine Cocaine Screen Negative 02/18/22 Unknown U Marijuana (THC) Screen Negative 02/18/22 Unknown Drugs of Abuse Note Disclamer 02/18/22 Unknown Plasma/Serum Alcohol < 0.01 % (0-0.07) 02/18/22 21:02 Horowitz/IV: Voiding Method Condom Catheter Active Medications - Current Medications Current Medications: Generic Name Dose Route Start Last Admin Trade Name Freq PRN Reason Stop Dose Admin Acetaminophen 650 mg 02/20/22 20:10 02/20/22 20:21 Acetaminophen 650 Mg Rect Supp RI 650 mg Q4H PRN Administration Pain, Mild (1-3) Albuterol 2.5 mg 02/23/22 16:00 02/25/22 08:41 Albuterol 2.5 Mg/3 Ml Nebu IH 2.5 mg Q4HRT LAZARUS Administration Famotidine 20 mg 02/25/22 10:00 02/25/22 09:47 Famotidine 20 Mg Tab FEEDTUBE 20 mg BID LAZARUS Administration Fentanyl 50 mcg 02/24/22 15:05 Fentanyl 100 Mcg/2 Ml Inj IV Q10MIN PRN ANALGESIA Heparin Sodium (Porcine) 5,000 unit 02/19/22 06:00 02/25/22 05:44 Heparin 5,000 Unit/1 Ml Vial SUB-Q 5,000 unit Q8HR LAZARUS Administration Hydralazine HCl 10 mg 02/20/22 19:44 Hydralazine 20 Mg/1 Ml Inj IV Q6H PRN Hypertension Hydrophilic Ointment 1 applic 02/24/22 15:05 Lip Therapy Vaseline TP Q2HR PRN Dry Lips Fentanyl Citrate 2,000 mcg in 100 mls @ 3.16 mls/hr 02/24/22 16:00 02/25/22 03:26 Fentanyl Drip Premix IV 1 mcg/kg/hr TITR LAZARUS 3.16 mls/hr Administration Protocol 1 MCG/KG/HR Propofol 1,000 mg in 100 mls @ 1.896 mls/hr 02/24/22 16:00 Diprivan 10 Mg/Ml IV TITR LAZARUS Protocol 5 MCG/KG/MIN Magnesium Hydroxide 30 ml 02/19/22 02:02 Magnesium Hydroxide (Mom) Oral Liqd Udc PO Q4H PRN Constipation Morphine Sulfate 2 mg 02/19/22 02:02 Morphine 2 Mg/1 Ml Inj IV Q4H PRN Pain, Moderate (4-6) Morphine Sulfate 4 mg 02/19/22 02:02 Morphine 4 Mg/1 Ml Inj IV Q4H PRN Pain , Severe (7-10) Multi-Ingred Cream/Lotion/Oil/Oint 1 applic 02/24/22 15:05 Mineral Oil/Petrolatum, White Ophth Oint 3.5 Gm OU Q4HR PRN Dry Eye(s) Ondansetron HCl 4 mg 02/19/22 02:02 Ondansetron 4 Mg/2 Ml Inj IV Q8H PRN Nausea And Vomiting Potassium Chloride 40 meq 02/25/22 08:45 02/25/22 09:46 Potassium Chloride 20 Meq Packet FEEDTUBE 02/25/22 12:45 40 meq ONCE@0845 LAZARUS Administration Senna/Docusate Sodium 1 tab 02/24/22 22:00 02/25/22 09:46 Sennosides/Docusate Sodium 8.6/50 Mg Tab FEEDTUBE 1 tab BID LAZARUS Administration Sodium Chloride 10 ml 02/19/22 10:00 02/25/22 09:54 Sodium Chloride 0.9% 10 Ml Flush Syringe IV 10 ml BID LAZARUS Administration Sodium Chloride 10 ml 02/19/22 02:02 02/19/22 06:41 Sodium Chloride 0.9% 10 Ml Flush Syringe IV 10 ml PRN PRN Administration LINE FLUSH Nutrition/Malnutrition Assess - Dietary Evaluation Nutrition/Malnutrition Findings: Nutrition Notes Start: 02/19/22 14:29 Freq: Status: Active Protocol: Document 02/24/22 14:57 TIERRA (Rec: 02/24/22 15:17 TIERRA [id number]) Nutrition Notes Initial or Follow up Brief Note Current Diagnosis Hypertension,Respiratory Failure,Hyperlipidemia Other Pertinent Diagnosis Encephalopathy, Seizure Broncogenic Carcinoma pui, Down Syndrome. Current Diet NPO (from 02/24 13:36). Height 5 ft 3 in Weight 63.2 kg [place] Body Weight (kg) 56.36 BMI 24.7 Weight change and time frame No body weight change reported in 2 days. Weight Status Appropriate Subjective/Other Information RD consult for routine F/U on TF tolerance/continuation assessment and evaluation of nutritional intake assessment. Pt currently on NPO. TF will be held for 24 hr, according to Progress notes. Pt intubated at 14:40 on 02/24 , according to RN notes. Nutrition Intervention Follow-Up By: 02/26/22 Additional Comments Continue monitoring on ventilation status, resume TF, and BM. <SILVIA BUCHANAN - Last Filed: 03/10/22 11:19> History Interval history: I saw and evaluated the patient. I agree with the findings and the plan of care as documented in the Nurse Practitioner's~note, with the following corrections and additions. Hospitalist Physical - Constitutional Vitals: Temp Pulse Resp BP Pulse Ox 98.8 F 73 15 82/41 98 03/10/22 07:13 03/10/22 08:40 03/10/22 08:40 03/10/22 08:00 03/10/22 08:00 HEART Score - HEART Score Troponin: Troponin T < 0.010 ng/mL (0.00-0.029) 02/18/22 21:02 Results - Labs CBC & Chem 7: 03/10/22 03:57 03/10/22 03:57 Labs: Laboratory Last Values WBC 10.2 K/mm3 (4.5-11.0) 03/10/22 03:57 RBC 2.99 M/mm3 (3.65-5.03) L 03/10/22 03:57 Hgb 9.9 gm/dl (11.8-15.2) L 03/10/22 03:57 Hct 30.3 % (35.5-45.6) L 03/10/22 03:57 MCV 102 fl (84-94) H 03/10/22 03:57 MCH 33 pg (28-32) H 03/10/22 03:57 MCHC 33 % (32-34) 03/10/22 03:57 RDW 16.8 % (13.2-15.2) H 03/10/22 03:57 Plt Count 329 K/mm3 (140-440) 03/10/22 03:57 Lymph % (Auto) 13.3 % (13.4-35.0) L 03/10/22 03:57 Swisher % (Auto) 12.5 % (0.0-7.3) H 03/10/22 03:57 Eos % (Auto) 1.4 % (0.0-4.3) 03/10/22 03:57 Baso % (Auto) 0.4 % (0.0-1.8) 03/10/22 03:57 Lymph # (Auto) 1.3 K/mm3 (1.2-5.4) 03/10/22 03:57 Swisher # (Auto) 1.3 K/mm3 (0.0-0.8) H 03/10/22 03:57 Eos # (Auto) 0.1 K/mm3 (0.0-0.4) 03/10/22 03:57 Baso # (Auto) 0.0 K/mm3 (0.0-0.1) 03/10/22 03:57 Add Manual Diff Complete 03/03/22 03:54 Total Counted 100 03/03/22 03:54 Seg Neutrophils % 72.4 % (40.0-70.0) H 03/10/22 03:57 Seg Neuts % (Manual) 95.0 % (40.0-70.0) H 03/03/22 03:54 Band Neutrophils % 0 % 03/03/22 03:54 Lymphocytes % (Manual) 3.0 % (13.4-35.0) L 03/03/22 03:54 Reactive Lymphs % (Man) 0 % 03/03/22 03:54 Monocytes % (Manual) 2.0 % (0.0-7.3) 03/03/22 03:54 Eosinophils % (Manual) 0 % (0.0-4.3) 03/03/22 03:54 Basophils % (Manual) 0 % (0.0-1.8) 03/03/22 03:54 Metamyelocytes % 0 % 03/03/22 03:54 Myelocytes % 0 % 03/03/22 03:54 Promyelocytes % 0 % 03/03/22 03:54 Blast Cells % 0 % 03/03/22 03:54 Nucleated RBC % Not Reportable 03/03/22 03:54 Seg Neutrophils # 7.4 K/mm3 (1.8-7.7) 03/10/22 03:57 Seg Neutrophils # Man 18.5 K/mm3 (1.8-7.7) H 03/03/22 03:54 Band Neutrophils # 0.0 K/mm3 03/03/22 03:54 Lymphocytes # (Manual) 0.6 K/mm3 (1.2-5.4) L 03/03/22 03:54 Abs React Lymphs (Man) 0.0 K/mm3 03/03/22 03:54 Monocytes # (Manual) 0.4 K/mm3 (0.0-0.8) 03/03/22 03:54 Eosinophils # (Manual) 0.0 K/mm3 (0.0-0.4) 03/03/22 03:54 Basophils # (Manual) 0.0 K/mm3 (0.0-0.1) 03/03/22 03:54 Metamyelocytes # 0.0 K/mm3 03/03/22 03:54 Myelocytes # 0.0 K/mm3 03/03/22 03:54 Promyelocytes # 0.0 K/mm3 03/03/22 03:54 Blast Cells # 0.0 K/mm3 03/03/22 03:54 WBC Morphology Not Reportable 03/03/22 03:54 Hypersegmented Neuts Not Reportable 03/03/22 03:54 Hyposegmented Neuts Not Reportable 03/03/22 03:54 Hypogranular Neuts Not Reportable 03/03/22 03:54 Smudge Cells Not Reportable 03/03/22 03:54 Toxic Granulation Not Reportable 03/03/22 03:54 Toxic Vacuolation Not Reportable 03/03/22 03:54 Dohle Bodies Not Reportable 03/03/22 03:54 Pelger-Huet Anomaly Not Reportable 03/03/22 03:54 Lakshmi Rods Not Reportable 03/03/22 03:54 Platelet Estimate Consistent w auto 03/03/22 03:54 Clumped Platelets Not Reportable 03/03/22 03:54 Plt Clumps, EDTA Not Reportable 03/03/22 03:54 Large Platelets Not Reportable 03/03/22 03:54 Giant Platelets Not Reportable 03/03/22 03:54 Platelet Satelliting Not Reportable 03/03/22 03:54 Plt Morphology Comment Not Reportable 03/03/22 03:54 RBC Morphology Not Reportable 03/03/22 03:54 Dimorphic RBCs Not Reportable 03/03/22 03:54 Polychromasia Not Reportable 03/03/22 03:54 Hypochromasia Not Reportable 03/03/22 03:54 Poikilocytosis Not Reportable 03/03/22 03:54 Anisocytosis 1+ 03/03/22 03:54 Microcytosis Not Reportable 03/03/22 03:54 Macrocytosis Not Reportable 03/03/22 03:54 Spherocytes Not Reportable 03/03/22 03:54 Pappenheimer Bodies Not Reportable 03/03/22 03:54 Sickle Cells Not Reportable 03/03/22 03:54 Target Cells Not Reportable 03/03/22 03:54 Tear Drop Cells Not Reportable 03/03/22 03:54 Ovalocytes Not Reportable 03/03/22 03:54 Helmet Cells Not Reportable 03/03/22 03:54 [place] Bodies Not Reportable 03/03/22 03:54 [place] Rings Not Reportable 03/03/22 03:54 [place] Cells Not Reportable 03/03/22 03:54 Bite Cells Not Reportable 03/03/22 03:54 Crenated Cell Not Reportable 03/03/22 03:54 Elliptocytes Not Reportable 03/03/22 03:54 Acanthocytes (Spur) Not Reportable 03/03/22 03:54 Rouleaux Not Reportable 03/03/22 03:54 Hemoglobin C Crystals Not Reportable 03/03/22 03:54 Schistocytes Not Reportable 03/03/22 03:54 Malaria parasites Not Reportable 03/03/22 03:54 Cash Bodies Not Reportable 03/03/22 03:54 Hem Pathologist Commnt No 03/03/22 03:54 PT 16.9 Sec. (12.2-14.9) H 02/18/22 21:02 INR 1.20 (0.87-1.13) H 02/18/22 21:02 ABG pH 7.465 pH Units (7.350-7.450) H 03/10/22 04:50 ABG pCO2 45.3 mm Hg 03/10/22 04:50 ABG pO2 89.4 mm Hg (80.0-90.0) 03/10/22 04:50 ABG HCO3 31.9 mmol/L (20.0-26.0) H 03/10/22 04:50 ABG O2 Saturation 97.3 % (95.0-99.0) 03/10/22 04:50 ABG O2 Content 14.9 (0.0-44) 03/10/22 04:50 ABG Base Excess 7.3 mmol/L (-2.0-3.0) H 03/10/22 04:50 ABG Hemoglobin 11.0 gm/dl (14.0-18.0) L 03/10/22 04:50 ABG Carboxyhemoglobin 1.6 % (0.0-5.0) 03/10/22 04:50 ABG Methemoglobin 0.5 % (0.0-1.5) 03/10/22 04:50 Oxyhemoglobin 95.2 % (95.0-99.0) 03/10/22 04:50 FiO2 30 % 03/10/22 04:50 Sodium 137 mmol/L (137-145) 03/10/22 03:57 Potassium 3.4 mmol/L (3.6-5.0) L 03/10/22 03:57 Chloride 101.9 mmol/L (98-107) 03/10/22 03:57 Carbon Dioxide 30 mmol/L (22-30) 03/10/22 03:57 Anion Gap 9 mmol/L 03/10/22 03:57 BUN 18 mg/dL (9-20) 03/10/22 03:57 Creatinine 0.6 mg/dL (0.8-1.3) L 03/10/22 03:57 Estimated GFR > 60 ml/min 03/10/22 03:57 BUN/Creatinine Ratio 30 % 03/10/22 03:57 Glucose 95 mg/dL (75-100) 03/10/22 03:57 POC Glucose 92 mg/dL (70-105) 03/09/22 23:59 Lactic Acid 1.20 mmol/L (0.7-2.0) 02/18/22 21:02 Calcium 8.1 mg/dL (8.4-10.2) L 03/10/22 03:57 Phosphorus 2.00 mg/dL (2.5-4.5) L 03/06/22 04:17 Magnesium 1.90 mg/dL (1.7-2.3) 03/06/22 04:17 Total Bilirubin 0.30 mg/dL (0.1-1.2) 03/10/22 03:57 AST 17 units/L (5-40) 03/10/22 03:57 ALT 18 units/L (7-56) 03/10/22 03:57 Alkaline Phosphatase 89 units/L (35-129) 03/10/22 03:57 Ammonia 14.0 umol/L (25-60) L 02/18/22 23:22 Troponin T < 0.010 ng/mL (0.00-0.029) 02/18/22 21:02 Total Protein 6.6 g/dL (6.3-8.2) 03/10/22 03:57 Albumin 1.9 g/dL (3.9-5) L 03/10/22 03:57 Albumin/Globulin Ratio 0.4 % 03/10/22 03:57 Urine Color Dark yellow (Yellow) 02/18/22 Unknown Urine Turbidity Clear (Clear) 02/18/22 Unknown Urine pH 7.0 (5.0-7.0) 02/18/22 Unknown Ur Specific Lyles 1.015 (1.003-1.030) 02/18/22 Unknown Urine Protein <15 mg/dl mg/dL (Negative) 02/18/22 Unknown Urine Glucose (UA) Negative mg/dL (Negative) 02/18/22 Unknown Urine Ketones Negative mg/dL (Negative) 02/18/22 Unknown Urine Blood Trace (Negative) 02/18/22 Unknown Urine Nitrite Negative (Negative) 02/18/22 Unknown Urine Bilirubin Negative (Negative) 02/18/22 Unknown Urine Urobilinogen < 2.0 mg/dL (<2.0) 02/18/22 Unknown Ur Leukocyte Esterase Negative (Negative) 02/18/22 Unknown Urine WBC (Auto) 2.0 /HPF (0.0-6.0) 02/18/22 Unknown Urine RBC (Auto) 9.0 /HPF (0.0-6.0) 02/18/22 Unknown Urine Mucus Few /HPF 02/18/22 Unknown Urine Opiates Screen Negative 02/18/22 Unknown Urine Methadone Screen Negative 02/18/22 Unknown Ur Barbiturates Screen Negative 02/18/22 Unknown Ur Phencyclidine Scrn Negative 02/18/22 Unknown Ur Amphetamines Screen Negative 02/18/22 Unknown U Benzodiazepines Scrn Negative 02/18/22 Unknown Urine Cocaine Screen Negative 02/18/22 Unknown U Marijuana (THC) Screen Negative 02/18/22 Unknown Drugs of Abuse Note Disclamer 02/18/22 Unknown Plasma/Serum Alcohol < 0.01 % (0-0.07) 02/18/22 21:02 Horowitz/IV: Voiding Method Indwelling Catheter Active Medications - Current Medications Current Medications: Generic Name Dose Route Start Last Admin Trade Name Freq PRN Reason Stop Dose Admin Acetaminophen 650 mg 03/03/22 09:00 Acetaminophen 325 Mg/10.15 Ml Oral Liqd Unit Dose FEEDTUBE Q4H PRN Pain, Mild (1-3); TEMP > 100.4 Albuterol 2.5 mg 02/23/22 16:00 03/10/22 08:23 Albuterol 2.5 Mg/3 Ml Nebu IH 2.5 mg Q4HRT LAZARUS Administration Famotidine 20 mg 02/25/22 10:00 03/10/22 10:59 Famotidine 20 Mg Tab FEEDTUBE 20 mg BID LAZARUS Administration Heparin Sodium (Porcine) 5,000 unit 02/19/22 06:00 03/10/22 06:00 Heparin 5,000 Unit/1 Ml Vial SUB-Q 5,000 unit Q8HR LAZARUS Administration Hydrophilic Ointment 1 applic 02/24/22 15:05 Lip Therapy Vaseline TP Q2HR PRN Dry Lips Levetiracetam 500 mg 02/25/22 22:00 03/10/22 10:59 Levetiracetam 500 Mg/5 Ml Oral Liqd FEEDTUBE 500 mg BID LAZARUS Administration Levothyroxine Sodium 25 mcg 02/26/22 06:00 03/10/22 06:00 Levothyroxine 25 Mcg Tab FEEDTUBE 25 mcg QAM@0600 LAZARUS Administration Magnesium Hydroxide 30 ml 02/19/22 02:02 Magnesium Hydroxide (Mom) Oral Liqd Udc PO Q4H PRN Constipation Morphine Sulfate 2 mg 02/19/22 02:02 Morphine 2 Mg/1 Ml Inj IV Q4H PRN Pain, Moderate (4-6) Morphine Sulfate 4 mg 02/19/22 02:02 Morphine 4 Mg/1 Ml Inj IV Q4H PRN Pain , Severe (7-10) Multi-Ingred Cream/Lotion/Oil/Oint 1 applic 02/24/22 15:05 Mineral Oil/Petrolatum, White Ophth Oint 3.5 Gm OU Q4HR PRN Dry Eye(s) Ondansetron HCl 4 mg 02/19/22 02:02 Ondansetron 4 Mg/2 Ml Inj IV Q8H PRN Nausea And Vomiting Potassium Chloride 40 meq 03/10/22 10:44 03/10/22 11:09 Potassium Chloride 20 Meq Packet FEEDTUBE 03/10/22 15:00 40 meq ONCE LAZARUS Administration Pravastatin Sodium 40 mg 02/25/22 22:00 03/09/22 21:16 Pravastatin 40 Mg Tab FEEDTUBE 40 mg QHS LAZARUS Administration Senna/Docusate Sodium 1 tab 02/24/22 22:00 03/10/22 10:59 Sennosides/Docusate Sodium 8.6/50 Mg Tab FEEDTUBE 1 tab BID LAZARUS Administration Sodium Chloride 10 ml 02/19/22 10:00 03/10/22 11:00 Sodium Chloride 0.9% 10 Ml Flush Syringe IV 10 ml BID LAZARUS Administration Sodium Chloride 10 ml 02/19/22 02:02 03/03/22 14:21 Sodium Chloride 0.9% 10 Ml Flush Syringe IV 10 ml PRN PRN Administration LINE FLUSH Nutrition/Malnutrition Assess - Dietary Evaluation Nutrition/Malnutrition Findings: Nutrition Notes Start: 02/19/22 14:29 Freq: Status: Active Protocol: Document 03/07/22 14:34 [facility] (Rec: 03/07/22 14:44 [facility] [id number]) Nutrition Notes Initial or Follow up Reassessment Current Diagnosis Hypertension,Respiratory Failure,Hyperlipidemia Other Pertinent Diagnosis Asp pneu, acute encephalopathy , seizure d/o, partial blindness Current Diet TF - Vital AF 1.2 at 50ml/hr Labs/Tests Reviewed Pertinent Medications Reviewed Height 5 ft 3 in Weight 63.2 kg [place] Body Weight (kg) 56.36 BMI 24.7 Weight change and time frame Unable to obtain current wt; bed scale not working - RN aware Weight Status Appropriate Subjective/Other Information Observed TF infusing at goal rate. Pt tolerating TF and remains on vent support. Pt been intubated since 02/24/22 via ETT. Trach/PEG placement pending. Percent of energy/protein needs met: 90% energy 100% pro Burn Absent Trauma Absent #1 Nutrition Diagnosis Inadequate oral intake Diagnosis Progress(for reassessment Continues documentation) Is patient on ventilator? Yes Is Patient Ambulatory and/or Out of Bed No REE-([facility]-confined to bed) [phone] Calculation Used for Recommendations [facility] Additional Notes Pro needs 1.2-2g/k-126g/ day Fluid needs 1ml/kcal Nutrition Intervention Nutrition Support: Continue Vital AF 1.2 at 50ml/ hr with 75ml water flush q4h. Kcal 1,440 Protein (gm) 90 Carbohydrates (gm) 133 Fat (gm) 65 Fluid (mL) 973 Fiber (gm) 6 Goal #1 TF tolerance Goal #2 TF to meet at least 75% energy and pro needs Follow-Up By: 03/14/22 Additional Comments F/U: stable TF, trach/PEG placement, vent status, wt
[2022-02-25] MEDS ORDERED: SODIUM CHLORIDE 0.9% 500 ML 500 ML IV NR (16:47)
[2022-02-25] MEDS: levETIRAcetam 500 MG/5 ML ORAL LIQD FEEDTUBE SCH (21:00)
[2022-02-25] MEDS: PRAVASTATIN 40 MG TAB FEEDTUBE SCH (21:00)
[2022-02-25] MEDS ORDERED: PRAVASTATIN 40 MG TAB PO SCH (22:00)
[2022-02-26] MEDS: ALBUTEROL 2.5 MG/3 ML NEBU IH SCH ×5 (00:01→19:54)
--- NOTE | 2022-02-26 01:51 | XRay Report ---
XR chest 1V ap INDICATION / CLINICAL INFORMATION: follow up respiratory failure. COMPARISON: Radiograph from yesterday. FINDINGS: SUPPORT DEVICES: Unchanged. HEART /PULMONARY VASCULATURE: Unchanged. LUNGS / PLEURA: Improved lung aeration. Right basilar airspace consolidation remains. No pneumothorax . IMPRESSION: Improved lung aeration with persistent right basilar airspace consolidation. Signer Name: Loy Craig MD Signed: 02/26/2022 1:46 AM Workstation Name: [id number]
[2022-02-26 03:57] LABS: ABG Base Excess 6.5 mmol/L (-2.0-3.0); ABG HCO3 33.2 mmol/L (20.0-26.0); ABG Methemoglobin 0.7 % (0.0-1.5); ABG Oxygen Saturation 98.6 % (95.0-99.0); ABG PCO2 60.8 mm Hg; ABG PH 7.355 pH Units (7.350-7.450); ABG PO2 143.2 mm Hg (80.0-90.0)
[2022-02-26 05:17] LABS: Blood Urea Nitrogen 12 mg/dL (9-20); Hemolysis Index 2
[2022-02-26 05:23] LABS: BUN/Creatinine Ratio 17
[2022-02-26] MEDS: LEVOTHYROXINE 25 MCG TAB FEEDTUBE SCH (05:29)
[2022-02-26] MEDS: HEPARIN 5,000 UNIT/1 ML VIAL SUB-Q SCH ×3 (05:29→21:31)
[2022-02-26] MEDS ORDERED: SODIUM CHLORIDE 0.9% 1000 ML 1,000 ML ONE (08:29)
[2022-02-26] MEDS ORDERED: BENZOCAINE 20% TOP SPRAY 0.5 ML UNIT DOSE MM ONE (08:31)
[2022-02-26] MEDS ORDERED: LIDOCAINE VISCOUS 2% 15 ML ORAL LIQD ONE (08:32)
[2022-02-26] MEDS ORDERED: EPINEPHrine 1 MG/10 ML SYRINGE ONE (08:32)
[2022-02-26] MEDS ORDERED: LIDOCAINE (2%) 20 MG/1 ML VIAL 20 ML MDV INFILTRATI ONE (08:33)
[2022-02-26] MEDS ORDERED: LACTATED RINGERS 1,000 ML IV ONE (08:45)
[2022-02-26] MEDS ORDERED: MIDAZOLAM 2 MG/2 ML INJ ONE (09:02)
--- NOTE | 2022-02-26 09:31 | Procedure Note ---
Date of procedure: 02/26/22 Pre-op diagnosis: Lung Mass Post-op diagnosis: other (Mucous Plugging, no endobronchial lesion noted) Procedure: Flexible bronchoscopy with mucous removal. 2 physician consent used as patient has no family and no guardian. Scope passed through 8.0 endotracheal tube. Large amounts of thick secretions seen bilaterally. Removed as much mucous as possible. patient did desat but gave him a break and recovered quickly. No endobronchial lesions, no masses seen. Tolerated well with no issues. Anesthesia: MAC Surgeon: BABS TRAMMELL Estimated blood loss: none Pathology: none Condition: critical Disposition: ICU
--- NOTE | 2022-02-26 09:34 | Progress Note ---
Assessment and Plan 61 y/o male with abnormal CT of chest. 02/26/22: Repeat CXR now. Wean Vent as tolerated. Hopeful extubation soon. Mucous removed. NO ENDOBRONCHIAL LESION/MASS 02/25/22: Bronch tentatively planned for tomorrow with therapeutic scope. Awaiting GI lab to give a time. NPO after midnight. Continue high PEEP 02/24/22: WIll attempt to bronch tomorrow morning. NPO after midnight. Just received word from GI lab they are not able to do bronch tomorrow. Cancel NPO order. Continue to feed patient. Repeat ABG in AM along with CXR. 02/21/22: No new pulm recs for today. Please obtain repeat CXR likely on Thursday. If patient happens to get worse, likely not a candidate for bipap given his weak cough and mental state and inability to communicate. If worsens and requires intubation, will bronch then under emergent circumstances if no POA or family is able to be located. Continue CPT. Will discuss with RT about NT suctioning. 02/20/22: Saw speech while on the floor. Would like patient to be NPO now. Discussed with nurse on floor and with IMS. Same recs pulm way as yesterday. Would benefit from bronch if able to get consent as this is not emergent. Continue CPT and q shift NT suctioning. Reviewed admission in the past and of note, patient was recently admitted last month and had a CXR done on the 29 of January that was normal. Given this patient's medical history and the history that I obtained from the nursing staff [facility], I suspect that this is aspiration, possibly of a foreign body (most likely food) with atelectasis of the right lower lobe. It is highly unlikely that a mass evolved in size in less than a months time and patient, besides age, has no real risk factors for lung carcinoma. Discussed with the nurse and unfortunately there is no identifiable person that is able to give consent. Bronchoscopy is needed in the case to [facility] to see if lung mass is there vs foreign body, but at this time not able to do. In the meanwhile will recommend the following. 1. Will order CPT with neb therapy 3x daily 2. Suggest maybe NT suctioning q shift. May use nasal trumpet, however do not leave this device in the patient 3. Aspiration precautions 4. Consider speech eval to assess swallowing. Will continue to follow. CCT 31 minutes. Subjective Date of service: 02/26/22 Interval history: No acute events. Tolerated bronch. ABG much improved today. Objective Vital Signs - 12hr 02/25/22 02/25/22 02/25/22 22:00 23:00 23:01 Temperature Pulse Rate 78 97 H 77 Pulse Rate [ From Monitor] Pulse Rate [ Posterior Bilateral Throughout] Respiratory 14 14 Rate Respiratory Rate [Posterior Bilateral Throughout] Blood Pressure 101/49 99/70 O2 Sat by Pulse 99 100 Oximetry 02/26/22 02/26/22 02/26/22 00:00 00:03 01:00 Temperature 98.7 F Pulse Rate 79 100 H 83 Pulse Rate [ 88 From Monitor] Pulse Rate [ 81 Posterior Bilateral Throughout] Respiratory 14 14 14 Rate Respiratory 14 Rate [Posterior Bilateral Throughout] Blood Pressure 94/57 94/57 101/60 O2 Sat by Pulse 100 100 100 Oximetry 02/26/22 02/26/22 02/26/22 02:00 03:00 03:20 Temperature Pulse Rate 88 84 87 Pulse Rate [ From Monitor] Pulse Rate [ Posterior Bilateral Throughout] Respiratory 10 L 13 Rate Respiratory Rate [Posterior Bilateral Throughout] Blood Pressure 94/59 100/59 O2 Sat by Pulse 100 100 Oximetry 02/26/22 02/26/22 02/26/22 03:21 03:38 03:49 Temperature 98.1 F Pulse Rate 94 H Pulse Rate [ 91 H From Monitor] Pulse Rate [ Posterior Bilateral Throughout] Respiratory 14 Rate Respiratory Rate [Posterior Bilateral Throughout] Blood Pressure 100/59 O2 Sat by Pulse 100 100 Oximetry 02/26/22 02/26/22 02/26/22 03:55 04:00 05:01 Temperature Pulse Rate 89 89 Pulse Rate [ From Monitor] Pulse Rate [ 96 H Posterior Bilateral Throughout] Respiratory 14 13 Rate Respiratory 15 Rate [Posterior Bilateral Throughout] Blood Pressure 90/49 95/54 O2 Sat by Pulse 100 100 Oximetry 02/26/22 02/26/22 02/26/22 06:00 07:00 08:00 Temperature 99.3 F Pulse Rate 82 82 84 Pulse Rate [ 84 From Monitor] Pulse Rate [ 92 H Posterior Bilateral Throughout] Respiratory 13 9 L 14 Rate Respiratory 16 Rate [Posterior Bilateral Throughout] Blood Pressure 101/56 89/52 115/58 O2 Sat by Pulse 100 100 100 Oximetry 02/26/22 08:01 Temperature Pulse Rate 97 H Pulse Rate [ From Monitor] Pulse Rate [ Posterior Bilateral Throughout] Respiratory 15 Rate Respiratory Rate [Posterior Bilateral Throughout] Blood Pressure 85/40 O2 Sat by Pulse 100 Oximetry Constitutional: other (on NRB) Eyes: non-icteric ENT: oropharynx moist Neck: supple Effort: normal Ascultation: Bilateral: diminished breath sounds, rhonchi Cardiovascular: regular rate and rhythm Gastrointestinal: normoactive bowel sounds, soft, non-tender (on o2 vest in place) Integumentary: normal Extremities: no cyanosis Neurologic: other (awake) CBC and BMP: 02/25/22 04:12 02/26/22 04:42 ABG, PT/INR, D-dimer: ABG ABG pH 7.355 pH Units (7.350-7.450) 02/26/22 03:30 ABG pCO2 60.8 mm Hg 02/26/22 03:30 ABG pO2 143.2 mm Hg (80.0-90.0) H 02/26/22 03:30 ABG O2 Saturation 98.6 % (95.0-99.0) 02/26/22 03:30 PT/INR, D-dimer PT 16.9 Sec. (12.2-14.9) H 02/18/22 21:02 INR 1.20 (0.87-1.13) H 02/18/22 21:02 Abnormal lab findings: Abnormal Labs 02/18/22 02/18/22 02/18/22 19:34 21:02 21:02 WBC RBC Hgb Hct MCV 101 H MCH 34 H RDW 16.1 H Lymph % (Auto) [place] % (Auto) 12.4 H Lymph # (Auto) [place] # (Auto) 1.2 H Seg Neutrophils % 73.0 H Seg Neutrophils # PT 16.9 H INR 1.20 H ABG pH ABG pO2 ABG HCO3 ABG O2 Saturation ABG Base Excess ABG Hemoglobin Oxyhemoglobin Sodium Potassium Chloride Carbon Dioxide BUN Creatinine Glucose POC Glucose 116 H Calcium Phosphorus AST ALT Ammonia Albumin 02/18/22 02/18/22 02/18/22 21:02 22:45 23:22 WBC RBC Hgb Hct MCV MCH RDW Lymph % (Auto) [place] % (Auto) Lymph # (Auto) [place] # (Auto) Seg Neutrophils % Seg Neutrophils # PT INR ABG pH ABG pO2 55.6 L ABG HCO3 28.4 H ABG O2 Saturation 91.5 L ABG Base Excess 3.8 H ABG Hemoglobin 13.2 L Oxyhemoglobin 89.6 L Sodium Potassium 5.1 H Chloride Carbon Dioxide BUN Creatinine Glucose 102 H POC Glucose Calcium Phosphorus AST 48 H ALT 64 H Ammonia 14.0 L Albumin 2.7 L 02/20/22 02/20/22 02/23/22 04:59 04:59 06:29 WBC 11.4 H RBC Hgb Hct MCV 103 H MCH 33 H RDW 16.5 H Lymph % (Auto) 5.5 L [place] % (Auto) 12.1 H Lymph # (Auto) 0.6 L [place] # (Auto) 1.4 H Seg Neutrophils % 81.4 H Seg Neutrophils # 9.2 H PT INR ABG pH ABG pO2 ABG HCO3 ABG O2 Saturation ABG Base Excess ABG Hemoglobin Oxyhemoglobin Sodium Potassium Chloride Carbon Dioxide BUN Creatinine Glucose POC Glucose 113 H Calcium 8.2 L Phosphorus AST ALT Ammonia Albumin 02/23/22 02/23/22 02/24/22 11:22 16:10 00:02 WBC RBC Hgb Hct MCV MCH RDW Lymph % (Auto) [place] % (Auto) Lymph # (Auto) [place] # (Auto) Seg Neutrophils % Seg Neutrophils # PT INR ABG pH ABG pO2 ABG HCO3 ABG O2 Saturation ABG Base Excess ABG Hemoglobin Oxyhemoglobin Sodium Potassium Chloride Carbon Dioxide BUN Creatinine Glucose POC Glucose 108 H 115 H 109 H Calcium Phosphorus AST ALT Ammonia Albumin 02/24/22 02/24/22 02/24/22 11:05 11:05 13:20 WBC RBC 3.55 L Hgb Hct MCV 100 H MCH 34 H RDW 15.6 H Lymph % (Auto) [place] % (Auto) Lymph # (Auto) [place] # (Auto) Seg Neutrophils % Seg Neutrophils # PT INR ABG pH ABG pO2 ABG HCO3 ABG O2 Saturation ABG Base Excess ABG Hemoglobin Oxyhemoglobin Sodium 146 H Potassium 3.2 L D Chloride 108.4 H Carbon Dioxide BUN Creatinine 0.5 L Glucose POC Glucose 111 H Calcium 7.9 L Phosphorus 2.20 L AST ALT Ammonia Albumin 02/24/22 02/24/22 02/24/22 16:30 17:03 20:25 WBC RBC Hgb Hct MCV MCH RDW Lymph % (Auto) [place] % (Auto) Lymph # (Auto) [place] # (Auto) Seg Neutrophils % Seg Neutrophils # PT INR ABG pH 7.319 L ABG pO2 65.3 L ABG HCO3 31.3 H ABG O2 Saturation 92.2 L ABG Base Excess 3.8 H ABG Hemoglobin 12.0 L Oxyhemoglobin 90.3 L Sodium Potassium Chloride 107.9 H Carbon Dioxide BUN 8 L Creatinine 0.4 L Glucose POC Glucose 108 H Calcium 7.6 L Phosphorus 4.60 H D AST ALT Ammonia Albumin 02/25/22 02/25/22 02/25/22 04:12 04:12 05:05 WBC RBC 3.07 L Hgb 10.2 L Hct 31.5 L MCV 103 H MCH 33 H RDW 15.6 H Lymph % (Auto) [place] % (Auto) Lymph # (Auto) [place] # (Auto) Seg Neutrophils % Seg Neutrophils # PT INR ABG pH ABG pO2 ABG HCO3 32.5 H ABG O2 Saturation ABG Base Excess 5.6 H ABG Hemoglobin 10.8 L Oxyhemoglobin 94.8 L Sodium Potassium 3.5 L Chloride 107.7 H Carbon Dioxide BUN Creatinine 0.5 L Glucose POC Glucose Calcium 7.0 L Phosphorus AST ALT Ammonia Albumin 02/25/22 02/25/22 02/26/22 12:05 18:33 03:30 WBC RBC Hgb Hct MCV MCH RDW Lymph % (Auto) [place] % (Auto) Lymph # (Auto) [place] # (Auto) Seg Neutrophils % Seg Neutrophils # PT INR ABG pH ABG pO2 143.2 H ABG HCO3 33.2 H ABG O2 Saturation ABG Base Excess 6.5 H ABG Hemoglobin 9.4 L Oxyhemoglobin Sodium Potassium Chloride Carbon Dioxide BUN Creatinine Glucose POC Glucose 127 H 125 H Calcium Phosphorus AST ALT Ammonia Albumin 02/26/22 04:42 WBC RBC Hgb Hct MCV MCH RDW Lymph % (Auto) [place] % (Auto) Lymph # (Auto) [place] # (Auto) Seg Neutrophils % Seg Neutrophils # PT INR ABG pH ABG pO2 ABG HCO3 ABG O2 Saturation ABG Base Excess ABG Hemoglobin Oxyhemoglobin Sodium Potassium Chloride Carbon Dioxide 32 H BUN Creatinine 0.7 L Glucose POC Glucose Calcium 8.0 L Phosphorus AST ALT Ammonia Albumin
[2022-02-26] MEDS ORDERED: LEVOTHYROXINE 25 MCG TAB PO SCH (10:00)
[2022-02-26] MEDS ORDERED: MIDAZOLAM 2 MG/2 ML INJ IV ONE (10:00)
[2022-02-26] MEDS ORDERED: fentaNYL 100 MCG/2 ML INJ IV ONE (10:00)
[2022-02-26] MEDS: MIDODRINE 10 MG TAB PO SCH ×3 (10:07→16:22)
[2022-02-26] MEDS: levETIRAcetam 500 MG/5 ML ORAL LIQD FEEDTUBE SCH ×2 (10:07→21:31)
[2022-02-26] MEDS: FAMOTIDINE 20 MG TAB FEEDTUBE SCH ×2 (10:08→21:31)
[2022-02-26] MEDS: SENNOSIDES/DOCUSATE SODIUM 8.6/50 MG TAB FEEDTUBE SCH ×2 (10:08→21:32)
--- NOTE | 2022-02-26 10:28 | XRay Report ---
CHEST 1 VIEW 02/26/2022 9:18 AM INDICATION / CLINICAL INFORMATION: Post bronch, mucous removal. COMPARISON: Earlier today at 0122 hours FINDINGS: SUPPORT DEVICES: Stable, satisfactory device positioning. HEART / MEDIASTINUM: No significant abnormality. LUNGS / PLEURA: Increased bibasilar opacities since the previous exam likely represents atelectatic c hanges. The upper lung zones remain clear. Trace right pleural effusion is unchanged. No pneumothorax . ADDITIONAL FINDINGS: No significant additional findings. IMPRESSION: 1. No acute process. Mild increased bibasilar atelectatic changes or infiltrates. Signer Name: Krishna Coreas Jr, MD Signed: 02/26/2022 10:23 AM Workstation Name: [id number]
--- NOTE | 2022-02-26 12:44 | Progress Note ---
<CODYCARSON ZiaRadha - Last Filed: 02/26/22 12:39> Assessment and Plan Assessment and plan: This is a 51-year-old male with HTN, seizure disorder, Down syndrome, HLD, partial blindness admitted with aspiration pneumonia, probable bronchogenic carcinoma, acute hypoxic respiratory failure and acute encephalopathy Neuro: Acute encephalopathy, h/o seizure disorder, Down syndrome, partial blindness -Patient currently sedated with fentanyl and propofol -RASS goal 0 to -1 -Reorientation as needed -Maintain sleep-wake cycle -aspiration/seizure precautions -As needed analgesia -CT head showed no acute abnormality -Continue Keppra -Neurology consulted, appreciate recommendations Cardiac: Hypotension, h/o HTN, HLD -Cardiology consulted, appreciate recommendations -Blood pressure monitoring per protocol -d/c amlodipine -Midodrine TID -s/p 500 ml NS 02/25 and 1L LR 02/26 Respiratory: Acute hypoxic respiratory failure, r/o bronchogenic carcinoma -CCM consulted, appreciate recommendations -Intubated on 02/24 with a 8.0 at 23 at the lips -Vent settings: AC rate 14, TV 360, PEEP 10, FO2 55% -See RT notes for titration -Increased FiO2 for bronch -wean as tolerated -VAP bundle -SPO2 monitoring -02/26 Bronch->mucous, no lesion noted GI: Moderate protein calorie malnutrition -24 hours +1543 mL -PPI -NTR consulted for tube feedings -BR: Senokot S : NAD -Monitor intake and output -Renally dose medications -Avoid nephrotoxic medications -Trend BMP ID: Aspiration PNA -S/p Rocephin for 5 days (02/19-02/24) -Monitor WBC and temperature curve Endo: NAD -Avoid hypoglycemia -Accu-Cheks every 6 -Avoid hypoglycemia Heme: NAD -Trend CBC -Transfuse hemoglobin less than 7 -SCDs to BLE while in bed The high probability of a clinically significant, sudden or life threatening deterioration of the [resp] system(s) required my full and direct attention, intervention and personal management. The aggregate critical care time was [60] minutes. This time is in addition to time spent performing reported procedures but includes the following: [x] Data Review and interpretation [x] Patient assessment and monitoring of vital signs [x] Documentation [x] Medication orders and management Disposition Plan: icu Total Time Spent with Patient (Minutes): 60 History Interval history: This is a 51-year-old male with HTN, seizure disorder, Down syndrome, HLD, and partial blindness [facility] a [facility] who presented to emergency department on 02/19 for evaluation of change in mental status. Of note patient was recently discharged a few weeks ago for a seizure disorder and UTI. Upon arrival to the emergency department patient was noted to be hypoxic with SPO2 in the 80s on a nonrebreather with difficulty breathing. Work-up in the emergency department revealed CXR which showed elevation of the right hemidiaphragm, right lower lung atelectasis and effusion with mild increased pulmonary vascularity but no pneumothorax and CT of the head did not show any acute abnormality. 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 Patient was admitted to the hospitalist service to the floor. Hospital course to date: 02/19/2022. Consult pulmonary for further evaluation and possible bronchoscopy. I suspect patient has component of aspiration pneumonia as well. We will obtain a speech therapy evaluation for swallowing and start empiric antibiotics. Continue O2 supplementation to maintain sats greater than 92%. 02/20/2022. Pulmonary feels that the abnormality seen on CT scan is highly unlikely for a mass given negative chest x-ray 1 month ago and no risk factors. Etiology is likely secondary to aspiration from possibly a foreign body most likely food with atelectasis of the right lower lobe. Bronchoscopy is needed in the case to evaluate to see if lung mass is there vs foreign body, but at this time not able to do because no identifiable person that is able to give consent. Continue aspiration precautions and continue speech therapy evaluation for swallowing. Keep n.p.o. for now 02/21/2022. Patient remains NPO. Consider DHT placement. Follow-up with speech therapy evaluation. Pulmonology to consider bronchoscopy if able to obtain consent. Continue IV antibiotics for aspiration pneumonia 02/22/2022. Patient remains NPO. Consider DHT placement. Follow-up with speech therapy evaluation. Pulmonology to consider bronchoscopy if able to obtain consent. Continue IV antibiotics for aspiration pneumonia 02/23/2022. DHT placed yesterday. TF initiated for nutritional support. Patient currently with strict NPO. Aspiration precautions. Pulmonology to consider bronchoscopy if able to obtain consent. Continue IV antibiotics for aspiration pneumonia 02/24: Patient was transferred to the ICU for further monitoring. This morning patient remained on high flow nasal cannula on 40 L/100% and despite repeated nasotracheal suctioning patient SPO2 remained in the 80s. Patient was placed on nonrebreather and SPO2 increased to upper 80s. Patient was subsequently intubated by anesthesia. Started on sedation. 02/25: Patient remains sedated on fentanyl, potassium and magnesium repleted. IV fluids and amlodipine discontinued. Possible bronchoscopy tomorrow. 02/26: Patient had a bronchoscopy today which showed mucus and no endobronchial lesions or masses. FiO2 was increased to 100 during and postprocedure weaning as tolerated. Repeat CXR is much improved after bronc. Given 1 L LR bolus due to hypotension. No acute events reported overnight. Hospitalist Physical - Constitutional Vitals: Temp Pulse Resp BP Pulse Ox 97.6 F 65 8 L 92/33 100 02/26/22 11:45 02/26/22 12:01 02/26/22 12:01 02/26/22 12:01 02/26/22 12:01 General appearance: Present: no acute distress, well-nourished - EENT Eyes: Present: PERRL, EOM intact ENT: poor dentition - Neck Neck: Present: normal ROM - Respiratory Respiratory effort: normal Respiratory: bilateral: diminished - Cardiovascular Rhythm: regular Heart Sounds: Present: S1 & S2. Absent: systolic murmur, diastolic murmur - Extremities Extremities: no ischemia, pulses intact, pulses symmetrical, No edema, normal temperature, normal color Peripheral Pulses: within normal limits - Abdominal General gastrointestinal: soft, non-tender, non-distended, normal bowel sounds - Integumentary Integumentary: Present: warm - Psychiatric Psychiatric: other - Neurologic Neurologic: moves all extremities - Allied Health Allied health notes reviewed: nursing, RT, social work HEART Score - HEART Score Troponin: Troponin T < 0.010 ng/mL (0.00-0.029) 02/18/22 21:02 Results - Labs CBC & Chem 7: 02/25/22 04:12 02/26/22 04:42 Labs: Laboratory Last Values WBC 9.9 K/mm3 (4.5-11.0) 02/25/22 04:12 RBC 3.07 M/mm3 (3.65-5.03) L 02/25/22 04:12 Hgb 10.2 gm/dl (11.8-15.2) L 02/25/22 04:12 Hct 31.5 % (35.5-45.6) L 02/25/22 04:12 MCV 103 fl (84-94) H 02/25/22 04:12 MCH 33 pg (28-32) H 02/25/22 04:12 MCHC 33 % (32-34) 02/25/22 04:12 RDW 15.6 % (13.2-15.2) H 02/25/22 04:12 Plt Count 253 K/mm3 (140-440) 02/25/22 04:12 Lymph % (Auto) 5.5 % (13.4-35.0) L 02/20/22 04:59 Isabela % (Auto) 12.1 % (0.0-7.3) H 02/20/22 04:59 Eos % (Auto) 0.2 % (0.0-4.3) 02/20/22 04:59 Baso % (Auto) 0.8 % (0.0-1.8) 02/20/22 04:59 Lymph # (Auto) 0.6 K/mm3 (1.2-5.4) L 02/20/22 04:59 [place] # (Auto) 1.4 K/mm3 (0.0-0.8) H 02/20/22 04:59 Eos # (Auto) 0.0 K/mm3 (0.0-0.4) 02/20/22 04:59 Baso # (Auto) 0.1 K/mm3 (0.0-0.1) 02/20/22 04:59 Seg Neutrophils % 81.4 % (40.0-70.0) H 02/20/22 04:59 Seg Neutrophils # 9.2 K/mm3 (1.8-7.7) H 02/20/22 04:59 PT 16.9 Sec. (12.2-14.9) H 02/18/22 21:02 INR 1.20 (0.87-1.13) H 02/18/22 21:02 ABG pH 7.355 pH Units (7.350-7.450) 02/26/22 03:30 ABG pCO2 60.8 mm Hg 02/26/22 03:30 ABG pO2 143.2 mm Hg (80.0-90.0) H 02/26/22 03:30 ABG HCO3 33.2 mmol/L (20.0-26.0) H 02/26/22 03:30 ABG O2 Saturation 98.6 % (95.0-99.0) 02/26/22 03:30 ABG O2 Content 13.1 (0.0-44) 02/26/22 03:30 ABG Base Excess 6.5 mmol/L (-2.0-3.0) H 02/26/22 03:30 ABG Hemoglobin 9.4 gm/dl (14.0-18.0) L 02/26/22 03:30 ABG Carboxyhemoglobin 1.2 % (0.0-5.0) 02/26/22 03:30 ABG Methemoglobin 0.7 % (0.0-1.5) 02/26/22 03:30 Oxyhemoglobin 96.7 % (95.0-99.0) 02/26/22 03:30 FiO2 65 % 02/26/22 03:30 Sodium 141 mmol/L (137-145) 02/26/22 04:42 Potassium 4.6 mmol/L (3.6-5.0) D 02/26/22 04:42 Chloride 105.4 mmol/L (98-107) 02/26/22 04:42 Carbon Dioxide 32 mmol/L (22-30) H 02/26/22 04:42 Anion Gap 8 mmol/L 02/26/22 04:42 BUN 12 mg/dL (9-20) 02/26/22 04:42 Creatinine 0.7 mg/dL (0.8-1.3) L 02/26/22 04:42 Estimated GFR > 60 ml/min 02/26/22 04:42 BUN/Creatinine Ratio 17 % 02/26/22 04:42 Glucose 95 mg/dL (75-100) 02/26/22 04:42 POC Glucose 114 mg/dL (70-105) H 02/26/22 11:34 Lactic Acid 1.20 mmol/L (0.7-2.0) 02/18/22 21:02 Calcium 8.0 mg/dL (8.4-10.2) L 02/26/22 04:42 Phosphorus 3.00 mg/dL (2.5-4.5) D 02/25/22 04:12 Magnesium 1.70 mg/dL (1.7-2.3) 02/25/22 04:31 Total Bilirubin 0.50 mg/dL (0.1-1.2) 02/18/22 21:02 AST 48 units/L (5-40) H 02/18/22 21:02 ALT 64 units/L (7-56) H 02/18/22 21:02 Alkaline Phosphatase 88 units/L (35-129) 02/18/22 21:02 Ammonia 14.0 umol/L (25-60) L 02/18/22 23:22 Troponin T < 0.010 ng/mL (0.00-0.029) 02/18/22 21:02 Total Protein 7.2 g/dL (6.3-8.2) 02/18/22 21:02 Albumin 2.7 g/dL (3.9-5) L 02/18/22 21:02 Albumin/Globulin Ratio 0.6 % 02/18/22 21:02 Urine Color Dark yellow (Yellow) 02/18/22 Unknown Urine Turbidity Clear (Clear) 02/18/22 Unknown Urine pH 7.0 (5.0-7.0) 02/18/22 Unknown Ur Specific [place] 1.015 (1.003-1.030) 02/18/22 Unknown Urine Protein <15 mg/dl mg/dL (Negative) 02/18/22 Unknown Urine Glucose (UA) Negative mg/dL (Negative) 02/18/22 Unknown Urine Ketones Negative mg/dL (Negative) 02/18/22 Unknown Urine Blood Trace (Negative) 02/18/22 Unknown Urine Nitrite Negative (Negative) 02/18/22 Unknown Urine Bilirubin Negative (Negative) 02/18/22 Unknown Urine Urobilinogen < 2.0 mg/dL (<2.0) 02/18/22 Unknown Ur Leukocyte Esterase Negative (Negative) 02/18/22 Unknown Urine WBC (Auto) 2.0 /HPF (0.0-6.0) 02/18/22 Unknown Urine RBC (Auto) 9.0 /HPF (0.0-6.0) 02/18/22 Unknown Urine Mucus Few /HPF 02/18/22 Unknown Urine Opiates Screen Negative 02/18/22 Unknown Urine Methadone Screen Negative 02/18/22 Unknown Ur Barbiturates Screen Negative 02/18/22 Unknown Ur Phencyclidine Scrn Negative 02/18/22 Unknown Ur Amphetamines Screen Negative 02/18/22 Unknown U Benzodiazepines Scrn Negative 02/18/22 Unknown Urine Cocaine Screen Negative 02/18/22 Unknown U Marijuana (THC) Screen Negative 02/18/22 Unknown Drugs of Abuse Note Disclamer 02/18/22 Unknown Plasma/Serum Alcohol < 0.01 % (0-0.07) 02/18/22 21:02 Horowitz/IV: Voiding Method Condom Catheter Active Medications - Current Medications Current Medications: Generic Name Dose Route Start Last Admin Trade Name Freq PRN Reason Stop Dose Admin Acetaminophen 650 mg 02/20/22 20:10 02/20/22 20:21 Acetaminophen [address] 650 mg Q4H PRN Administration Pain, Mild (1-3) Albuterol 2.5 mg 02/23/22 16:00 02/26/22 08:47 Albuterol 2.5 Mg/3 Ml Nebu IH 2.5 mg Q4HRT LAZARUS Administration Famotidine 20 mg 02/25/22 10:00 02/26/22 10:08 Famotidine 20 Mg Tab FEEDTUBE 20 mg BID LAZARUS Administration Fentanyl 50 mcg 02/24/22 15:05 Fentanyl 100 Mcg/2 Ml Inj IV Q10MIN PRN ANALGESIA Heparin Sodium (Porcine) 5,000 unit 02/19/22 06:00 02/26/22 05:29 Heparin 5,000 Unit/1 Ml Vial SUB-Q 5,000 unit Q8HR LAZARUS Administration Hydralazine HCl 10 mg 02/20/22 19:44 Hydralazine 20 Mg/1 Ml Inj IV Q6H PRN Hypertension Hydrophilic Ointment 1 applic 02/24/22 15:05 Lip Therapy Vaseline TP Q2HR PRN Dry Lips Fentanyl Citrate 2,000 mcg in 100 mls @ 3.16 mls/hr 02/24/22 16:00 02/26/22 02:00 Fentanyl Drip Premix IV 0 mcg/kg/hr TITR LAZARUS 0 mls/hr Titration Protocol 1 MCG/KG/HR Propofol 1,000 mg in 100 mls @ 1.896 mls/hr 02/24/22 16:00 Diprivan 10 Mg/Ml IV TITR LAZARUS Protocol 5 MCG/KG/MIN Levetiracetam 500 mg 02/25/22 22:00 02/26/22 10:07 Levetiracetam 500 Mg/5 Ml Oral Liqd FEEDTUBE 500 mg BID LAZARUS Administration Levothyroxine Sodium 25 mcg 02/26/22 06:00 02/26/22 05:29 Levothyroxine 25 Mcg Tab FEEDTUBE 25 mcg QAM@0600 LAZARUS Administration Magnesium Hydroxide 30 ml 02/19/22 02:02 Magnesium Hydroxide (Mom) Oral Liqd Udc PO Q4H PRN Constipation Midodrine 10 mg 02/26/22 08:00 02/26/22 10:07 Midodrine 10 Mg Tab PO 10 mg TID@0800,1200,1600 LAZARUS Administration Morphine Sulfate 2 mg 02/19/22 02:02 Morphine 2 Mg/1 Ml Inj IV Q4H PRN Pain, Moderate (4-6) Morphine Sulfate 4 mg 02/19/22 02:02 Morphine 4 Mg/1 Ml Inj IV Q4H PRN Pain , Severe (7-10) Multi-Ingred Cream/Lotion/Oil/Oint 1 applic 02/24/22 15:05 Mineral Oil/Petrolatum, White Ophth Oint 3.5 Gm OU Q4HR PRN Dry Eye(s) Ondansetron HCl 4 mg 02/19/22 02:02 Ondansetron 4 Mg/2 Ml Inj IV Q8H PRN Nausea And Vomiting Pravastatin Sodium 40 mg 02/25/22 22:00 02/25/22 21:00 Pravastatin 40 Mg Tab FEEDTUBE 40 mg QHS LAZARUS Administration Senna/Docusate Sodium 1 tab 02/24/22 22:00 02/26/22 10:08 Sennosides/Docusate Sodium 8.6/50 Mg Tab FEEDTUBE 1 tab BID LAZARUS Administration Sodium Chloride 10 ml 02/19/22 10:00 02/26/22 10:10 Sodium Chloride 0.9% 10 Ml Flush Syringe IV 10 ml BID LAZARUS Administration Sodium Chloride 10 ml 02/19/22 02:02 02/19/22 06:41 Sodium Chloride 0.9% 10 Ml Flush Syringe IV 10 ml PRN PRN Administration LINE FLUSH Nutrition/Malnutrition Assess - Dietary Evaluation Nutrition/Malnutrition Findings: Nutrition Notes Start: 02/19/22 14:29 Freq: Status: Active Protocol: Document 02/26/22 10:27 TIERRA (Rec: 02/26/22 10:33 TIERRA [id number]) Nutrition Notes Initial or Follow up Brief Note Current Diagnosis Hypertension,Respiratory Failure,Hyperlipidemia Other Pertinent Diagnosis Encephalopathy, Seizure Broncogenic Carcinoma pui, Down Syndrome. Current Diet NPO (since 02/26 00:01). Height 5 ft 3 in Weight 63.2 kg [place] Body Weight (kg) 56.36 BMI 24.7 Weight change and time frame No body weight change reported in 4 days. Weight Status Appropriate Subjective/Other Information RD consult for routine F/U on TF tolerance/continuation. POt currently on NPO due to procedure. Procedure on 02/26: Flexible bronchoscopy with mucus removal, well tolerated, according to Operative Report notes. Pt remains on Mechanical Ventilation, however, MD will attempt to wean ventilation as tolerated, according to Progress notes. Nutrition Intervention Follow-Up By: 02/27/22 Additional Comments Continue monitoring on ventilation status, resume TF, and BM. <SILVIA BUCHANAN - Last Filed: 03/10/22 11:19> History Interval history: I saw and evaluated the patient. I agree with the findings and the plan of care as documented in the Nurse Practitioner's~note, with the following corrections and additions. Hospitalist Physical - Constitutional Vitals: Temp Pulse Resp BP Pulse Ox 98.8 F 73 15 82/41 98 03/10/22 07:13 03/10/22 08:40 03/10/22 08:40 03/10/22 08:00 03/10/22 08:00 HEART Score - HEART Score Troponin: Troponin T < 0.010 ng/mL (0.00-0.029) 02/18/22 21:02 Results - Labs CBC & Chem 7: 03/10/22 03:57 03/10/22 03:57 Labs: Laboratory Last Values WBC 10.2 K/mm3 (4.5-11.0) 03/10/22 03:57 RBC 2.99 M/mm3 (3.65-5.03) L 03/10/22 03:57 Hgb 9.9 gm/dl (11.8-15.2) L 03/10/22 03:57 Hct 30.3 % (35.5-45.6) L 03/10/22 03:57 MCV 102 fl (84-94) H 03/10/22 03:57 MCH 33 pg (28-32) H 03/10/22 03:57 MCHC 33 % (32-34) 03/10/22 03:57 RDW 16.8 % (13.2-15.2) H 03/10/22 03:57 Plt Count 329 K/mm3 (140-440) 03/10/22 03:57 Lymph % (Auto) 13.3 % (13.4-35.0) L 03/10/22 03:57 Isabel[place] % (Auto) 12.5 % (0.0-7.3) H 03/10/22 03:57 Eos % (Auto) 1.4 % (0.0-4.3) 03/10/22 03:57 Baso % (Auto) 0.4 % (0.0-1.8) 03/10/22 03:57 Lymph # (Auto) 1.3 K/mm3 (1.2-5.4) 03/10/22 03:57 Isabel[place] # (Auto) 1.3 K/mm3 (0.0-0.8) H 03/10/22 03:57 Eos # (Auto) 0.1 K/mm3 (0.0-0.4) 03/10/22 03:57 Baso # (Auto) 0.0 K/mm3 (0.0-0.1) 03/10/22 03:57 Add Manual Diff Complete 03/03/22 03:54 Total Counted 100 03/03/22 03:54 Seg Neutrophils % 72.4 % (40.0-70.0) H 03/10/22 03:57 Seg Neuts % (Manual) 95.0 % (40.0-70.0) H 03/03/22 03:54 Band Neutrophils % 0 % 03/03/22 03:54 Lymphocytes % (Manual) 3.0 % (13.4-35.0) L 03/03/22 03:54 Reactive Lymphs % (Man) 0 % 03/03/22 03:54 Monocytes % (Manual) 2.0 % (0.0-7.3) 03/03/22 03:54 Eosinophils % (Manual) 0 % (0.0-4.3) 03/03/22 03:54 Basophils % (Manual) 0 % (0.0-1.8) 03/03/22 03:54 Metamyelocytes % 0 % 03/03/22 03:54 Myelocytes % 0 % 03/03/22 03:54 Promyelocytes % 0 % 03/03/22 03:54 Blast Cells % 0 % 03/03/22 03:54 Nucleated RBC % Not Reportable 03/03/22 03:54 Seg Neutrophils # 7.4 K/mm3 (1.8-7.7) 03/10/22 03:57 Seg Neutrophils # Man 18.5 K/mm3 (1.8-7.7) H 03/03/22 03:54 Band Neutrophils # 0.0 K/mm3 03/03/22 03:54 Lymphocytes # (Manual) 0.6 K/mm3 (1.2-5.4) L 03/03/22 03:54 Abs React Lymphs (Man) 0.0 K/mm3 03/03/22 03:54 Monocytes # (Manual) 0.4 K/mm3 (0.0-0.8) 03/03/22 03:54 Eosinophils # (Manual) 0.0 K/mm3 (0.0-0.4) 03/03/22 03:54 Basophils # (Manual) 0.0 K/mm3 (0.0-0.1) 03/03/22 03:54 Metamyelocytes # 0.0 K/mm3 03/03/22 03:54 Myelocytes # 0.0 K/mm3 03/03/22 03:54 Promyelocytes # 0.0 K/mm3 03/03/22 03:54 Blast Cells # 0.0 K/mm3 03/03/22 03:54 WBC Morphology Not Reportable 03/03/22 03:54 Hypersegmented Neuts Not Reportable 03/03/22 03:54 Hyposegmented Neuts Not Reportable 03/03/22 03:54 Hypogranular Neuts Not Reportable 03/03/22 03:54 Smudge Cells Not Reportable 03/03/22 03:54 Toxic Granulation Not Reportable 03/03/22 03:54 Toxic Vacuolation Not Reportable 03/03/22 03:54 Dohle Bodies Not Reportable 03/03/22 03:54 Pelger-Huet Anomaly Not Reportable 03/03/22 03:54 Lakshmi Rods Not Reportable 03/03/22 03:54 Platelet Estimate Consistent w auto 03/03/22 03:54 Clumped Platelets Not Reportable 03/03/22 03:54 Plt Clumps, EDTA Not Reportable 03/03/22 03:54 Large Platelets Not Reportable 03/03/22 03:54 Giant Platelets Not Reportable 03/03/22 03:54 Platelet Satelliting Not Reportable 03/03/22 03:54 Plt Morphology Comment Not Reportable 03/03/22 03:54 RBC Morphology Not Reportable 03/03/22 03:54 Dimorphic RBCs Not Reportable 03/03/22 03:54 Polychromasia Not Reportable 03/03/22 03:54 Hypochromasia Not Reportable 03/03/22 03:54 Poikilocytosis Not Reportable 03/03/22 03:54 Anisocytosis 1+ 03/03/22 03:54 Microcytosis Not Reportable 03/03/22 03:54 Macrocytosis Not Reportable 03/03/22 03:54 Spherocytes Not Reportable 03/03/22 03:54 Pappenheimer Bodies Not Reportable 03/03/22 03:54 Sickle Cells Not Reportable 03/03/22 03:54 Target Cells Not Reportable 03/03/22 03:54 Tear Drop Cells Not Reportable 03/03/22 03:54 Ovalocytes Not Reportable 03/03/22 03:54 Helmet Cells Not Reportable 03/03/22 03:54 [place]-Sunset Bodies Not Reportable 03/03/22 03:54 [place]eda Rings Not Reportable 03/03/22 03:54 [place] Cells Not Reportable 03/03/22 03:54 Bite Cells Not Reportable 03/03/22 03:54 Crenated Cell Not Reportable 03/03/22 03:54 Elliptocytes Not Reportable 03/03/22 03:54 Acanthocytes (Spur) Not Reportable 03/03/22 03:54 Rouleaux Not Reportable 03/03/22 03:54 Hemoglobin C Crystals Not Reportable 03/03/22 03:54 Schistocytes Not Reportable 03/03/22 03:54 Malaria parasites Not Reportable 03/03/22 03:54 Cash Bodies Not Reportable 03/03/22 03:54 Hem Pathologist Commnt No 03/03/22 03:54 PT 16.9 Sec. (12.2-14.9) H 02/18/22 21:02 INR 1.20 (0.87-1.13) H 02/18/22 21:02 ABG pH 7.465 pH Units (7.350-7.450) H 03/10/22 04:50 ABG pCO2 45.3 mm Hg 03/10/22 04:50 ABG pO2 89.4 mm Hg (80.0-90.0) 03/10/22 04:50 ABG HCO3 31.9 mmol/L (20.0-26.0) H 03/10/22 04:50 ABG O2 Saturation 97.3 % (95.0-99.0) 03/10/22 04:50 ABG O2 Content 14.9 (0.0-44) 03/10/22 04:50 ABG Base Excess 7.3 mmol/L (-2.0-3.0) H 03/10/22 04:50 ABG Hemoglobin 11.0 gm/dl (14.0-18.0) L 03/10/22 04:50 ABG Carboxyhemoglobin 1.6 % (0.0-5.0) 03/10/22 04:50 ABG Methemoglobin 0.5 % (0.0-1.5) 03/10/22 04:50 Oxyhemoglobin 95.2 % (95.0-99.0) 03/10/22 04:50 FiO2 30 % 03/10/22 04:50 Sodium 137 mmol/L (137-145) 03/10/22 03:57 Potassium 3.4 mmol/L (3.6-5.0) L 03/10/22 03:57 Chloride 101.9 mmol/L (98-107) 03/10/22 03:57 Carbon Dioxide 30 mmol/L (22-30) 03/10/22 03:57 Anion Gap 9 mmol/L 03/10/22 03:57 BUN 18 mg/dL (9-20) 03/10/22 03:57 Creatinine 0.6 mg/dL (0.8-1.3) L 03/10/22 03:57 Estimated GFR > 60 ml/min 03/10/22 03:57 BUN/Creatinine Ratio 30 % 03/10/22 03:57 Glucose 95 mg/dL (75-100) 03/10/22 03:57 POC Glucose 92 mg/dL (70-105) 03/09/22 23:59 Lactic Acid 1.20 mmol/L (0.7-2.0) 02/18/22 21:02 Calcium 8.1 mg/dL (8.4-10.2) L 03/10/22 03:57 Phosphorus 2.00 mg/dL (2.5-4.5) L 03/06/22 04:17 Magnesium 1.90 mg/dL (1.7-2.3) 03/06/22 04:17 Total Bilirubin 0.30 mg/dL (0.1-1.2) 03/10/22 03:57 AST 17 units/L (5-40) 03/10/22 03:57 ALT 18 units/L (7-56) 03/10/22 03:57 Alkaline Phosphatase 89 units/L (35-129) 03/10/22 03:57 Ammonia 14.0 umol/L (25-60) L 02/18/22 23:22 Troponin T < 0.010 ng/mL (0.00-0.029) 02/18/22 21:02 Total Protein 6.6 g/dL (6.3-8.2) 03/10/22 03:57 Albumin 1.9 g/dL (3.9-5) L 03/10/22 03:57 Albumin/Globulin Ratio 0.4 % 03/10/22 03:57 Urine Color Dark yellow (Yellow) 02/18/22 Unknown Urine Turbidity Clear (Clear) 02/18/22 Unknown Urine pH 7.0 (5.0-7.0) 02/18/22 Unknown Ur Specific [place] 1.015 (1.003-1.030) 02/18/22 Unknown Urine Protein <15 mg/dl mg/dL (Negative) 02/18/22 Unknown Urine Glucose (UA) Negative mg/dL (Negative) 02/18/22 Unknown Urine Ketones Negative mg/dL (Negative) 02/18/22 Unknown Urine Blood Trace (Negative) 02/18/22 Unknown Urine Nitrite Negative (Negative) 02/18/22 Unknown Urine Bilirubin Negative (Negative) 02/18/22 Unknown Urine Urobilinogen < 2.0 mg/dL (<2.0) 02/18/22 Unknown Ur Leukocyte Esterase Negative (Negative) 02/18/22 Unknown Urine WBC (Auto) 2.0 /HPF (0.0-6.0) 02/18/22 Unknown Urine RBC (Auto) 9.0 /HPF (0.0-6.0) 02/18/22 Unknown Urine Mucus Few /HPF 02/18/22 Unknown Urine Opiates Screen Negative 02/18/22 Unknown Urine Methadone Screen Negative 02/18/22 Unknown Ur Barbiturates Screen Negative 02/18/22 Unknown Ur Phencyclidine Scrn Negative 02/18/22 Unknown Ur Amphetamines Screen Negative 02/18/22 Unknown U Benzodiazepines Scrn Negative 02/18/22 Unknown Urine Cocaine Screen Negative 02/18/22 Unknown U Marijuana (THC) Screen Negative 02/18/22 Unknown Drugs of Abuse Note Disclamer 02/18/22 Unknown Plasma/Serum Alcohol < 0.01 % (0-0.07) 02/18/22 21:02 Horowitz/IV: Voiding Method Indwelling Catheter Active Medications - Current Medications Current Medications: Generic Name Dose Route Start Last Admin Trade Name Freq PRN Reason Stop Dose Admin Acetaminophen 650 mg 03/03/22 09:00 Acetaminophen 325 Mg/10.15 Ml Oral Liqd Unit Dose FEEDTUBE Q4H PRN Pain, Mild (1-3); TEMP > 100.4 Albuterol 2.5 mg 02/23/22 16:00 03/10/22 08:23 Albuterol 2.5 Mg/3 Ml Nebu IH 2.5 mg Q4HRT LAZARUS Administration Famotidine 20 mg 02/25/22 10:00 03/10/22 10:59 Famotidine 20 Mg Tab FEEDTUBE 20 mg BID LAZARUS Administration Heparin Sodium (Porcine) 5,000 unit 02/19/22 06:00 03/10/22 06:00 Heparin 5,000 Unit/1 Ml Vial SUB-Q 5,000 unit Q8HR LAZARUS Administration Hydrophilic Ointment 1 applic 02/24/22 15:05 Lip Therapy Vaseline TP Q2HR PRN Dry Lips Levetiracetam 500 mg 02/25/22 22:00 03/10/22 10:59 Levetiracetam 500 Mg/5 Ml Oral Liqd FEEDTUBE 500 mg BID LAZARUS Administration Levothyroxine Sodium 25 mcg 02/26/22 06:00 03/10/22 06:00 Levothyroxine 25 Mcg Tab FEEDTUBE 25 mcg QAM@0600 LAZARUS Administration Magnesium Hydroxide 30 ml 02/19/22 02:02 Magnesium Hydroxide (Mom) Oral Liqd Udc PO Q4H PRN Constipation Morphine Sulfate 2 mg 02/19/22 02:02 Morphine 2 Mg/1 Ml Inj IV Q4H PRN Pain, Moderate (4-6) Morphine Sulfate 4 mg 02/19/22 02:02 Morphine 4 Mg/1 Ml Inj IV Q4H PRN Pain , Severe (7-10) Multi-Ingred Cream/Lotion/Oil/Oint 1 applic 02/24/22 15:05 Mineral Oil/Petrolatum, White Ophth Oint 3.5 Gm OU Q4HR PRN Dry Eye(s) Ondansetron HCl 4 mg 02/19/22 02:02 Ondansetron 4 Mg/2 Ml Inj IV Q8H PRN Nausea And Vomiting Potassium Chloride 40 meq 03/10/22 10:44 03/10/22 11:09 Potassium Chloride 20 Meq Packet FEEDTUBE 03/10/22 15:00 40 meq ONCE LAZARUS Administration Pravastatin Sodium 40 mg 02/25/22 22:00 03/09/22 21:16 Pravastatin 40 Mg Tab FEEDTUBE 40 mg QHS LAZARUS Administration Senna/Docusate Sodium 1 tab 02/24/22 22:00 03/10/22 10:59 Sennosides/Docusate Sodium 8.6/50 Mg Tab FEEDTUBE 1 tab BID LAZARUS Administration Sodium Chloride 10 ml 02/19/22 10:00 03/10/22 11:00 Sodium Chloride 0.9% 10 Ml Flush Syringe IV 10 ml BID LAZARUS Administration Sodium Chloride 10 ml 02/19/22 02:02 03/03/22 14:21 Sodium Chloride 0.9% 10 Ml Flush Syringe IV 10 ml PRN PRN Administration LINE FLUSH Nutrition/Malnutrition Assess - Dietary Evaluation Nutrition/Malnutrition Findings: Nutrition Notes Start: 02/19/22 14:29 Freq: Status: Active Protocol: Document 03/07/22 14:34 NHALL (Rec: 03/07/22 14:44 IVAN [id number]) Nutrition Notes Initial or Follow up Reassessment Current Diagnosis Hypertension,Respiratory Failure,Hyperlipidemia Other Pertinent Diagnosis Asp pneu, acute encephalopathy , seizure d/o, partial blindness Current Diet TF - Vital AF 1.2 at 50ml/hr Labs/Tests Reviewed Pertinent Medications Reviewed Height 5 ft 3 in Weight 63.2 kg [place] Body Weight (kg) 56.36 BMI 24.7 Weight change and time frame Unable to obtain current wt; bed scale not working - RN aware Weight Status Appropriate Subjective/Other Information Observed TF infusing at goal rate. Pt tolerating TF and remains on vent support. Pt been intubated since 02/24/22 via ETT. Trach/PEG placement pending. Percent of energy/protein needs met: 90% energy 100% pro Burn Absent Trauma Absent #1 Nutrition Diagnosis Inadequate oral intake Diagnosis Progress(for reassessment Continues documentation) Is patient on ventilator? Yes Is Patient Ambulatory and/or Out of Bed No REE-([facility]-confined to bed) [phone] Calculation Used for Recommendations [facility] Additional Notes Pro needs 1.2-2g/k-126g/ day Fluid needs 1ml/kcal Nutrition Intervention Nutrition Support: Continue Vital AF 1.2 at 50ml/ hr with 75ml water flush q4h. Kcal 1,440 Protein (gm) 90 Carbohydrates (gm) 133 Fat (gm) 65 Fluid (mL) 973 Fiber (gm) 6 Goal #1 TF tolerance Goal #2 TF to meet at least 75% energy and pro needs Follow-Up By: 03/14/22 Additional Comments F/U: stable TF, trach/PEG placement, vent status, wt
[2022-02-26] MEDS: PRAVASTATIN 40 MG TAB FEEDTUBE SCH (21:31)
[2022-02-27] MEDS: ALBUTEROL 2.5 MG/3 ML NEBU IH SCH ×7 (00:11→23:27)
[2022-02-27 04:57] LABS: ABG Base Excess 8.1 mmol/L (-2.0-3.0); ABG HCO3 34.9 mmol/L (20.0-26.0); ABG Methemoglobin 0.7 % (0.0-1.5); ABG Oxygen Saturation 97.3 % (95.0-99.0); ABG PCO2 57.3 mm Hg; ABG PH 7.402 pH Units (7.350-7.450); ABG PO2 96.3 mm Hg (80.0-90.0)
[2022-02-27] MEDS: LEVOTHYROXINE 25 MCG TAB FEEDTUBE SCH (05:36)
[2022-02-27] MEDS: HEPARIN 5,000 UNIT/1 ML VIAL SUB-Q SCH ×3 (05:36→21:21)
[2022-02-27 05:53] LABS: Hematocrit 28.5 % (35.5-45.6); Hemoglobin 9.3 gm/dl (11.8-15.2); Mean Corpuscular HGB Conc 32 % (32-34); Mean Corpuscular Volume 103 fl (84-94); Platelet Count 267 K/mm3 (140-440); Red Blood Count 2.78 M/mm3 (3.65-5.03); Red Cell Distribution Width 16.3 % (13.2-15.2)
--- NOTE | 2022-02-27 06:00 | XRay Report ---
XR chest 1V ap INDICATION / CLINICAL INFORMATION: follow up respiratory failure. COMPARISON: Radiograph from yesterday. FINDINGS: SUPPORT DEVICES: Unchanged. HEART /PULMONARY VASCULATURE: Unchanged. LUNGS / PLEURA: Right greater than left bibasilar airspace opacities are unchanged. Trace right pleur al effusion is stable. No pneumothorax. IMPRESSION: 1. No significant interval change. Signer Name: Loy Craig MD Signed: 02/27/2022 5:55 AM Workstation Name: [id number]
[2022-02-27 06:07] LABS: Blood Urea Nitrogen 11 mg/dL (9-20); Calcium 7.8 mg/dL (8.4-10.2); Hemolysis Index 6
[2022-02-27 06:18] LABS: BUN/Creatinine Ratio 18
[2022-02-27] MEDS: MIDODRINE 10 MG TAB PO SCH ×3 (07:35→17:38)
--- NOTE | 2022-02-27 09:14 | Progress Note ---
Assessment and Plan 61 y/o male with abnormal CT of chest. 02/27/22: Continue improvement of oxygenation. Will drop PEEP down today with goal of being at 6 by in the morning. Will repeat CT scan to confirm improvement as no endobronchial lesion was seen, but also to make sure no parenchymal mass. There was no evidence of extrinsic compression during bronch. Likely extubation tomorrow post CT. 02/26/22: Repeat CXR now. Wean Vent as tolerated. Hopeful extubation soon. Mucous removed. NO ENDOBRONCHIAL LESION/MASS 02/25/22: Bronch tentatively planned for tomorrow with therapeutic scope. Awaiting GI lab to give a time. NPO after midnight. Continue high PEEP 02/24/22: WIll attempt to bronch tomorrow morning. NPO after midnight. Just received word from GI lab they are not able to do bronch tomorrow. Cancel NPO order. Continue to feed patient. Repeat ABG in AM along with CXR. 02/21/22: No new pulm recs for today. Please obtain repeat CXR likely on Thursday. If patient happens to get worse, likely not a candidate for bipap given his weak cough and mental state and inability to communicate. If worsens and re quires intubation, will bronch then under emergent circumstances if no POA or family is able to be located. Continue CPT. Will discuss with RT about NT suctioning. 02/20/22: Saw speech while on the floor. Would like patient to be NPO now. Discussed with nurse on floor and with IMS. Same recs pulm wya as yesterday. Would benefit from bronch if able to get consent as this is not emergent. Con jerilynue CPT and q shift NT suctioning. Reviewed admission in the past and of note, patient was recently admitted last month and had a CXR done on the 29 of January that was normal. Given this patient's medical history and the history that I obtained from the nursing staff that at the [facility] he was eating solid foods, I suspect that this is aspiration, possibly of a foreign body (most likely food) with atelectasis of the right lower lobe. It is highly unlikely that a mass evolved in size in less than a months time and patient, besides age, has no real risk factors for lung carcinoma. Discussed with the nurse and unfortunately there is no identifiable person that is able to give consent. Bronchoscopy is needed in the case to evaluate to see if lung mass is there vs foreign body, but at this time not able to do. In the meanwhile will recommend the following. 1. Will order CPT with neb therapy 3x daily 2. Suggest maybe NT suctioning q shift. May use nasal trumpet, however do not leave this device in the patient 3. Aspiration precautions 4. Consider speech eval to assess swallowing. Will continue to follow. CCT 31 minutes. Subjective Date of service: 02/27/22 Interval history: No acute events. Oxygenation continues to improve. Down to 45% with sat of 98 but still on 10 of PEEP. Tolerated bronch with no issues. Objective Vital Signs - 12hr 02/26/22 02/26/22 02/26/22 22:00 23:00 23:09 Temperature Pulse Rate 68 65 72 Pulse Rate [ From Monitor] Pulse Rate [ Posterior Bilateral Throughout] Respiratory 10 L 10 L 13 Rate Respiratory Rate [Posterior Bilateral Throughout] Blood Pressure 96/50 88/45 88/45 O2 Sat by Pulse 97 99 99 Oximetry 02/27/22 02/27/22 02/27/22 00:00 00:05 00:11 Temperature 97.8 F Pulse Rate 70 69 Pulse Rate [ 72 From Monitor] Pulse Rate [ 83 Posterior Bilateral Throughout] Respiratory 11 L Rate Respiratory 14 Rate [Posterior Bilateral Throughout] Blood Pressure 95/49 95/49 O2 Sat by Pulse 99 99 Oximetry 02/27/22 02/27/22 02/27/22 01:00 02:01 03:00 Temperature Pulse Rate 71 83 76 Pulse Rate [ From Monitor] Pulse Rate [ Posterior Bilateral Throughout] Respiratory 11 L 16 13 Rate Respiratory Rate [Posterior Bilateral Throughout] Blood Pressure 98/48 102/51 101/52 O2 Sat by Pulse 100 95 97 Oximetry 02/27/22 02/27/22 02/27/22 04:00 04:14 04:18 Temperature 98.3 F Pulse Rate 71 85 Pulse Rate [ 88 From Monitor] Pulse Rate [ 92 H Posterior Bilateral Throughout] Respiratory 14 Rate Respiratory 17 Rate [Posterior Bilateral Throughout] Blood Pressure 100/51 101/51 O2 Sat by Pulse 100 100 Oximetry 02/27/22 02/27/22 02/27/22 05:01 06:00 07:00 Temperature Pulse Rate 87 87 81 Pulse Rate [ From Monitor] Pulse Rate [ Posterior Bilateral Throughout] Respiratory 14 15 14 Rate Respiratory Rate [Posterior Bilateral Throughout] Blood Pressure 126/97 139/65 137/58 O2 Sat by Pulse 96 96 96 Oximetry 02/27/22 08:00 Temperature 98.0 F Pulse Rate 81 Pulse Rate [ 86 From Monitor] Pulse Rate [ Posterior Bilateral Throughout] Respiratory 18 Rate Respiratory Rate [Posterior Bilateral Throughout] Blood Pressure 134/69 O2 Sat by Pulse 98 Oximetry Constitutional: other (on NRB) Eyes: non-icteric ENT: oropharynx moist Neck: supple Effort: normal Ascultation: Bilateral: diminished breath sounds, rhonchi Cardiovascular: regular rate and rhythm Gastrointestinal: normoactive bowel sounds, soft, non-tender (on o2 vest in place) Integumentary: normal Extremities: no cyanosis Neurologic: other (awake) CBC and BMP: 02/27/22 04:19 02/27/22 04:19 ABG, PT/INR, D-dimer: ABG ABG pH 7.402 pH Units (7.350-7.450) 02/27/22 04:35 ABG pCO2 57.3 mm Hg 02/27/22 04:35 ABG pO2 96.3 mm Hg (80.0-90.0) H 02/27/22 04:35 ABG O2 Saturation 97.3 % (95.0-99.0) 02/27/22 04:35 PT/INR, D-dimer PT 16.9 Sec. (12.2-14.9) H 02/18/22 21:02 INR 1.20 (0.87-1.13) H 02/18/22 21:02 Abnormal lab findings: Abnormal Labs 02/18/22 02/18/22 02/18/22 19:34 21:02 21:02 WBC RBC Hgb Hct MCV 101 H MCH 34 H RDW 16.1 H Lymph % (Auto) [place] % (Auto) 12.4 H Lymph # (Auto) [place] # (Auto) 1.2 H Seg Neutrophils % 73.0 H Seg Neutrophils # PT 16.9 H INR 1.20 H ABG pH ABG pO2 ABG HCO3 ABG O2 Saturation ABG Base Excess ABG Hemoglobin Oxyhemoglobin Sodium Potassium Chloride Carbon Dioxide BUN Creatinine Glucose POC Glucose 116 H Calcium Phosphorus AST ALT Ammonia Albumin 02/18/22 02/18/22 02/18/22 21:02 22:45 23:22 WBC RBC Hgb Hct MCV MCH RDW Lymph % (Auto) [place] % (Auto) Lymph # (Auto) [place] # (Auto) Seg Neutrophils % Seg Neutrophils # PT INR ABG pH ABG pO2 55.6 L ABG HCO3 28.4 H ABG O2 Saturation 91.5 L ABG Base Excess 3.8 H ABG Hemoglobin 13.2 L Oxyhemoglobin 89.6 L Sodium Potassium 5.1 H Chloride Carbon Dioxide BUN Creatinine Glucose 102 H POC Glucose Calcium Phosphorus AST 48 H ALT 64 H Ammonia 14.0 L Albumin 2.7 L 02/20/22 02/20/22 02/23/22 04:59 04:59 06:29 WBC 11.4 H RBC Hgb Hct MCV 103 H MCH 33 H RDW 16.5 H Lymph % (Auto) 5.5 L [place] % (Auto) 12.1 H Lymph # (Auto) 0.6 L [place] # (Auto) 1.4 H Seg Neutrophils % 81.4 H Seg Neutrophils # 9.2 H PT INR ABG pH ABG pO2 ABG HCO3 ABG O2 Saturation ABG Base Excess ABG Hemoglobin Oxyhemoglobin Sodium Potassium Chloride Carbon Dioxide BUN Creatinine Glucose POC Glucose 113 H Calcium 8.2 L Phosphorus AST ALT Ammonia Albumin 02/23/22 02/23/22 02/24/22 11:22 16:10 00:02 WBC RBC Hgb Hct MCV MCH RDW Lymph % (Auto) [place] % (Auto) Lymph # (Auto) [place] # (Auto) Seg Neutrophils % Seg Neutrophils # PT INR ABG pH ABG pO2 ABG HCO3 ABG O2 Saturation ABG Base Excess ABG Hemoglobin Oxyhemoglobin Sodium Potassium Chloride Carbon Dioxide BUN Creatinine Glucose POC Glucose 108 H 115 H 109 H Calcium Phosphorus AST ALT Ammonia Albumin 02/24/22 02/24/22 02/24/22 11:05 11:05 13:20 WBC RBC 3.55 L Hgb Hct MCV 100 H MCH 34 H RDW 15.6 H Lymph % (Auto) [place] % (Auto) Lymph # (Auto) [place] # (Auto) Seg Neutrophils % Seg Neutrophils # PT INR ABG pH ABG pO2 ABG HCO3 ABG O2 Saturation ABG Base Excess ABG Hemoglobin Oxyhemoglobin Sodium 146 H Potassium 3.2 L D Chloride 108.4 H Carbon Dioxide BUN Creatinine 0.5 L Glucose POC Glucose 111 H Calcium 7.9 L Phosphorus 2.20 L AST ALT Ammonia Albumin 02/24/22 02/24/22 02/24/22 16:30 17:03 20:25 WBC RBC Hgb Hct MCV MCH RDW Lymph % (Auto) [place] % (Auto) Lymph # (Auto) [place] # (Auto) Seg Neutrophils % Seg Neutrophils # PT INR ABG pH 7.319 L ABG pO2 65.3 L ABG HCO3 31.3 H ABG O2 Saturation 92.2 L ABG Base Excess 3.8 H ABG Hemoglobin 12.0 L Oxyhemoglobin 90.3 L Sodium Potassium Chloride 107.9 H Carbon Dioxide BUN 8 L Creatinine 0.4 L Glucose POC Glucose 108 H Calcium 7.6 L Phosphorus 4.60 H D AST ALT Ammonia Albumin 02/25/22 02/25/22 02/25/22 04:12 04:12 05:05 WBC RBC 3.07 L Hgb 10.2 L Hct 31.5 L MCV 103 H MCH 33 H RDW 15.6 H Lymph % (Auto) [place] % (Auto) Lymph # (Auto) [place] # (Auto) Seg Neutrophils % Seg Neutrophils # PT INR ABG pH ABG pO2 ABG HCO3 32.5 H ABG O2 Saturation ABG Base Excess 5.6 H ABG Hemoglobin 10.8 L Oxyhemoglobin 94.8 L Sodium Potassium 3.5 L Chloride 107.7 H Carbon Dioxide BUN Creatinine 0.5 L Glucose POC Glucose Calcium 7.0 L Phosphorus AST ALT Ammonia Albumin 02/25/22 02/25/22 02/26/22 12:05 18:33 00:07 WBC RBC Hgb Hct MCV MCH RDW Lymph % (Auto) [place] % (Auto) Lymph # (Auto) [place] # (Auto) Seg Neutrophils % Seg Neutrophils # PT INR ABG pH ABG pO2 ABG HCO3 ABG O2 Saturation ABG Base Excess ABG Hemoglobin Oxyhemoglobin Sodium Potassium Chloride Carbon Dioxide BUN Creatinine Glucose POC Glucose 127 H 125 H 114 H Calcium Phosphorus AST ALT Ammonia Albumin 02/26/22 02/26/22 02/26/22 03:30 04:42 11:34 WBC RBC Hgb Hct MCV MCH RDW Lymph % (Auto) [place] % (Auto) Lymph # (Auto) [place] # (Auto) Seg Neutrophils % Seg Neutrophils # PT INR ABG pH ABG pO2 143.2 H ABG HCO3 33.2 H ABG O2 Saturation ABG Base Excess 6.5 H ABG Hemoglobin 9.4 L Oxyhemoglobin Sodium Potassium Chloride Carbon Dioxide 32 H BUN Creatinine 0.7 L Glucose POC Glucose 114 H Calcium 8.0 L Phosphorus AST ALT Ammonia Albumin 02/26/22 02/26/22 02/27/22 18:17 23:37 04:19 WBC 13.7 H RBC 2.78 L Hgb 9.3 L Hct 28.5 L MCV 103 H MCH 33 H RDW 16.3 H Lymph % (Auto) [place] % (Auto) Lymph # (Auto) [place] # (Auto) Seg Neutrophils % Seg Neutrophils # PT INR ABG pH ABG pO2 ABG HCO3 ABG O2 Saturation ABG Base Excess ABG Hemoglobin Oxyhemoglobin Sodium Potassium Chloride Carbon Dioxide BUN Creatinine Glucose POC Glucose 111 H 117 H Calcium Phosphorus AST ALT Ammonia Albumin 02/27/22 02/27/22 02/27/22 04:19 04:35 05:27 WBC RBC Hgb Hct MCV MCH RDW Lymph % (Auto) [place] % (Auto) Lymph # (Auto) [place] # (Auto) Seg Neutrophils % Seg Neutrophils # PT INR ABG pH ABG pO2 96.3 H ABG HCO3 34.9 H ABG O2 Saturation ABG Base Excess 8.1 H ABG Hemoglobin Oxyhemoglobin Sodium Potassium Chloride Carbon Dioxide 31 H BUN Creatinine 0.6 L Glucose 107 H POC Glucose 133 H Calcium 7.8 L Phosphorus AST ALT Ammonia Albumin
[2022-02-27] MEDS: FAMOTIDINE 20 MG TAB FEEDTUBE SCH ×2 (09:15→21:21)
[2022-02-27] MEDS: levETIRAcetam 500 MG/5 ML ORAL LIQD FEEDTUBE SCH ×2 (09:15→21:21)
[2022-02-27] MEDS: SENNOSIDES/DOCUSATE SODIUM 8.6/50 MG TAB FEEDTUBE SCH ×2 (09:15→22:09)
--- NOTE | 2022-02-27 14:36 | Progress Note ---
<CODYCARSON ZiaRadha - Last Filed: 02/27/22 14:45> Assessment and Plan Assessment and plan: This is a 51-year-old male with HTN, seizure disorder, Down syndrome, HLD, partial blindness admitted with aspiration pneumonia, probable bronchogenic carcinoma, acute hypoxic respiratory failure and acute encephalopathy Neuro: Acute encephalopathy, h/o seizure disorder, Down syndrome, partial blindness -Patient currently sedated with fentanyl and propofol -RASS goal 0 to -1 -Reorientation as needed -Maintain sleep-wake cycle -aspiration/seizure precautions -As needed analgesia -CT head showed no acute abnormality -Continue Keppra -Neurology consulted, appreciate recommendations Cardiac: Hypotension, h/o HTN, HLD -Cardiology consulted, appreciate recommendations -Blood pressure monitoring per protocol -d/c amlodipine -Midodrine TID -s/p 500 ml NS 02/25 and 1L LR 02/26 Respiratory: Acute hypoxic respiratory failure, r/o bronchogenic carcinoma -CCM consulted, appreciate recommendations -Intubated on 02/24 with a 8.0 at 23 at the lips -Vent settings: AC rate 14, TV 360, PEEP 10, FO2 45% -See RT notes for titration -decreased PEEP today -VAP bundle -SPO2 monitoring -02/26 Bronch->mucous, no lesion noted GI: Moderate protein calorie malnutrition -24 hours +1104 mL -PPI -NTR consulted for tube feedings -BR: Senokot S : Metabolic alkalosis -Monitor intake and output -Renally dose medications -Avoid nephrotoxic medications -Trend BMP ID: Aspiration PNA -S/p Rocephin for 5 days (02/19-02/24) -Monitor WBC and temperature curve Endo: NAD -Avoid hypoglycemia -Accu-Cheks every 6 -Avoid hypoglycemia Heme: NAD -Trend CBC -Transfuse hemoglobin less than 7 -SCDs to BLE while in bed The high probability of a clinically significant, sudden or life threatening deterioration of the [resp] system(s) required my full and direct attention, intervention and personal management. The aggregate critical care time was [60] minutes. This time is in addition to time spent performing reported procedures but includes the following: [x] Data Review and interpretation [x] Patient assessment and monitoring of vital signs [x] Documentation [x] Medication orders and management Disposition Plan: icu Total Time Spent with Patient (Minutes): 60 History Interval history: This is a 51-year-old male with HTN, seizure disorder, Down syndrome, HLD, and partial blindness was a resident of the [facility] who presented to emergency de partment on 02/19 for evaluation of change in mental status. Of note patient was recently discharged a few weeks ago for a seizure disorder and UTI. Upon arrival to the emergency department patient was noted to be hypoxic with SPO2 in the 80s on a nonrebreather with difficulty breathing. Work-up in the emergency department revealed CXR which showed elevation of the right hemidiaphragm, right lower lung atelectasis and effusion with mild increased pulmonary vascularity but no pneumothorax and CT of the head did not show any acute abnormality. 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 Patient was admitted to the hospitalist service to the floor. Hospital course to date: 02/19/2022. Consult pulmonary for further evaluation and possible bronchoscopy. I suspect patient has component of aspiration pneumonia as well. We will obtain a speech therapy evaluation for swallowing and start empiric antibiotics. Continue O2 supplementation to maintain sats greater than 92%. 02/20/2022. Pulmonary feels that the abnormality seen on CT scan is highly unlikely for a mass given negative chest x-ray 1 month ago and no risk factors. Etiology is likely secondary to aspiration from possibly a foreign body most likely food with atelectasis of the right lower lobe. Bronchoscopy is needed in the case to evaluate to see if lung mass is there vs foreign body, but at this time not able to do because no identifiable person that is able to give consent. Continue aspiration precautions and continue speech therapy evaluation for swallowing. Keep n.p.o. for now 02/21/2022. Patient remains NPO. Consider DHT placement. Follow-up with speech therapy evaluation. Pulmonology to consider bronchoscopy if able to obtain consent. Continue IV antibiotics for aspiration pneumonia 02/22/2022. Patient remains NPO. Consider DHT placement. Follow-up with speech therapy evaluation. Pulmonology to consider bronchoscopy if able to obtain consent. Continue IV antibiotics for aspiration pneumonia 02/23/2022. DHT placed yesterday. TF initiated for nutritional support. Patient currently with strict NPO. Aspiration precautions. Pulmonology to consider bronchoscopy if able to obtain consent. Continue IV antibiotics for aspiration pneumonia 02/24: Patient was transferred to the ICU for further monitoring. This morning patient remained on high flow nasal cannula on 40 L/100% and despite repeated nasotracheal suctioning patient SPO2 remained in the 80s. Patient was placed on nonrebreather and SPO2 increased to upper 80s. Patient was subsequently intubated by anesthesia. Started on sedation. 02/25: Patient remains sedated on fentanyl, potassium and magnesium repleted. IV fluids and amlodipine discontinued. Possible bronchoscopy tomorrow. 02/26: Patient had a bronchoscopy today which showed mucus and no endobronchial lesions or masses. FiO2 was increased to 100 during and postprocedure weaning as tolerated. Repeat CXR is much improved after bronc. Given 1 L LR bolus due to hypotension. No acute events reported overnight. 02/27: Decreased PEEP, will repeat CT of chest. no acute changes overnight. Hospitalist Physical - Constitutional Vitals: Temp Pulse Resp BP Pulse Ox 98.2 F 86 18 114/69 96 02/27/22 12:00 02/27/22 13:14 02/27/22 13:14 02/27/22 13:07 02/27/22 13:07 General appearance: Present: no acute distress, well-nourished - EENT Eyes: Present: PERRL ENT: dentition normal - Neck Neck: Present: normal ROM - Respiratory Respiratory effort: normal Respiratory: bilateral: diminished, rhonchi - Cardiovascular Rhythm: regular Heart Sounds: Present: S1 & S2. Absent: systolic murmur, diastolic murmur - Extremities Extremities: no ischemia, pulses intact, pulses symmetrical, No edema, normal temperature, normal color Peripheral Pulses: within normal limits - Abdominal General gastrointestinal: soft, non-tender, non-distended, normal bowel sounds - Integumentary Integumentary: Present: dry - Psychiatric Psychiatric: other - Neurologic Neurologic: other (moves all extremities spontanously) - Allied Health Allied health notes reviewed: nursing, RT, social work HEART Score - HEART Score Troponin: Troponin T < 0.010 ng/mL (0.00-0.029) 02/18/22 21:02 Results - Labs CBC & Chem 7: 02/27/22 04:19 02/27/22 04:19 Labs: Laboratory Last Values WBC 13.7 K/mm3 (4.5-11.0) H 02/27/22 04:19 RBC 2.78 M/mm3 (3.65-5.03) L 02/27/22 04:19 Hgb 9.3 gm/dl (11.8-15.2) L 02/27/22 04:19 Hct 28.5 % (35.5-45.6) L 02/27/22 04:19 MCV 103 fl (84-94) H 02/27/22 04:19 MCH 33 pg (28-32) H 02/27/22 04:19 MCHC 32 % (32-34) 02/27/22 04:19 RDW 16.3 % (13.2-15.2) H 02/27/22 04:19 Plt Count 267 K/mm3 (140-440) 02/27/22 04:19 Lymph % (Auto) 5.5 % (13.4-35.0) L 02/20/22 04:59 [place] % (Auto) 12.1 % (0.0-7.3) H 02/20/22 04:59 Eos % (Auto) 0.2 % (0.0-4.3) 02/20/22 04:59 Baso % (Auto) 0.8 % (0.0-1.8) 02/20/22 04:59 Lymph # (Auto) 0.6 K/mm3 (1.2-5.4) L 02/20/22 04:59 [place] # (Auto) 1.4 K/mm3 (0.0-0.8) H 02/20/22 04:59 Eos # (Auto) 0.0 K/mm3 (0.0-0.4) 02/20/22 04:59 Baso # (Auto) 0.1 K/mm3 (0.0-0.1) 02/20/22 04:59 Seg Neutrophils % 81.4 % (40.0-70.0) H 02/20/22 04:59 Seg Neutrophils # 9.2 K/mm3 (1.8-7.7) H 02/20/22 04:59 PT 16.9 Sec. (12.2-14.9) H 02/18/22 21:02 INR 1.20 (0.87-1.13) H 02/18/22 21:02 ABG pH 7.402 pH Units (7.350-7.450) 02/27/22 04:35 ABG pCO2 57.3 mm Hg 02/27/22 04:35 ABG pO2 96.3 mm Hg (80.0-90.0) H 02/27/22 04:35 ABG HCO3 34.9 mmol/L (20.0-26.0) H 02/27/22 04:35 ABG O2 Saturation 97.3 % (95.0-99.0) 02/27/22 04:35 ABG O2 Content 19.6 (0.0-44) 02/27/22 04:35 ABG Base Excess 8.1 mmol/L (-2.0-3.0) H 02/27/22 04:35 ABG Hemoglobin 14.6 gm/dl (14.0-18.0) 02/27/22 04:35 ABG Carboxyhemoglobin 1.3 % (0.0-5.0) 02/27/22 04:35 ABG Methemoglobin 0.7 % (0.0-1.5) 02/27/22 04:35 Oxyhemoglobin 95.4 % (95.0-99.0) 02/27/22 04:35 FiO2 65 % 02/27/22 04:35 Sodium 137 mmol/L (137-145) 02/27/22 04:19 Potassium 4.3 mmol/L (3.6-5.0) 02/27/22 04:19 Chloride 100.9 mmol/L (98-107) 02/27/22 04:19 Carbon Dioxide 31 mmol/L (22-30) H 02/27/22 04:19 Anion Gap 9 mmol/L 02/27/22 04:19 BUN 11 mg/dL (9-20) 02/27/22 04:19 Creatinine 0.6 mg/dL (0.8-1.3) L 02/27/22 04:19 Estimated GFR > 60 ml/min 02/27/22 04:19 BUN/Creatinine Ratio 18 % 02/27/22 04:19 Glucose 107 mg/dL (75-100) H 02/27/22 04:19 POC Glucose 129 mg/dL (70-105) H 02/27/22 11:15 Lactic Acid 1.20 mmol/L (0.7-2.0) 02/18/22 21:02 Calcium 7.8 mg/dL (8.4-10.2) L 02/27/22 04:19 Phosphorus 3.00 mg/dL (2.5-4.5) D 02/25/22 04:12 Magnesium 1.70 mg/dL (1.7-2.3) 02/25/22 04:31 Total Bilirubin 0.50 mg/dL (0.1-1.2) 02/18/22 21:02 AST 48 units/L (5-40) H 02/18/22 21:02 ALT 64 units/L (7-56) H 02/18/22 21:02 Alkaline Phosphatase 88 units/L (35-129) 02/18/22 21:02 Ammonia 14.0 umol/L (25-60) L 02/18/22 23:22 Troponin T < 0.010 ng/mL (0.00-0.029) 02/18/22 21:02 Total Protein 7.2 g/dL (6.3-8.2) 02/18/22 21:02 Albumin 2.7 g/dL (3.9-5) L 02/18/22 21:02 Albumin/Globulin Ratio 0.6 % 02/18/22 21:02 Urine Color Dark yellow (Yellow) 02/18/22 Unknown Urine Turbidity Clear (Clear) 02/18/22 Unknown Urine pH 7.0 (5.0-7.0) 02/18/22 Unknown Ur Specific [place] 1.015 (1.003-1.030) 02/18/22 Unknown Urine Protein <15 mg/dl mg/dL (Negative) 02/18/22 Unknown Urine Glucose (UA) Negative mg/dL (Negative) 02/18/22 Unknown Urine Ketones Negative mg/dL (Negative) 02/18/22 Unknown Urine Blood Trace (Negative) 02/18/22 Unknown Urine Nitrite Negative (Negative) 02/18/22 Unknown Urine Bilirubin Negative (Negative) 02/18/22 Unknown Urine Urobilinogen < 2.0 mg/dL (<2.0) 02/18/22 Unknown Ur Leukocyte Esterase Negative (Negative) 02/18/22 Unknown Urine WBC (Auto) 2.0 /HPF (0.0-6.0) 02/18/22 Unknown Urine RBC (Auto) 9.0 /HPF (0.0-6.0) 02/18/22 Unknown Urine Mucus Few /HPF 02/18/22 Unknown Urine Opiates Screen Negative 02/18/22 Unknown Urine Methadone Screen Negative 02/18/22 Unknown Ur Barbiturates Screen Negative 02/18/22 Unknown Ur Phencyclidine Scrn Negative 02/18/22 Unknown Ur Amphetamines Screen Negative 02/18/22 Unknown U Benzodiazepines Scrn Negative 02/18/22 Unknown Urine Cocaine Screen Negative 02/18/22 Unknown U Marijuana (THC) Screen Negative 02/18/22 Unknown Drugs of Abuse Note Disclamer 02/18/22 Unknown Plasma/Serum Alcohol < 0.01 % (0-0.07) 02/18/22 21:02 Microbiology: Microbiology 02/24/22 15:30 Tracheal Aspirate Sputum Culture - Preliminary Horowitz/IV: Voiding Method Condom Catheter Active Medications - Current Medications Current Medications: Generic Name Dose Route Start Last Admin Trade Name Freq PRN Reason Stop Dose Admin Acetaminophen 650 mg 02/20/22 20:10 02/20/22 20:21 Acetaminophen 650 Mg Rect Supp [place] 650 mg Q4H PRN Administration Pain, Mild (1-3) Albuterol 2.5 mg 02/23/22 16:00 02/27/22 13:05 Albuterol 2.5 Mg/3 Ml Nebu IH 2.5 mg Q4HRT LAZARUS Administration Famotidine 20 mg 02/25/22 10:00 02/27/22 09:15 Famotidine 20 Mg Tab FEEDTUBE 20 mg BID LAZARUS Administration Fentanyl 50 mcg 02/24/22 15:05 Fentanyl 100 Mcg/2 Ml Inj IV Q10MIN PRN ANALGESIA Heparin Sodium (Porcine) 5,000 unit 02/19/22 06:00 02/27/22 13:32 Heparin 5,000 Unit/1 Ml Vial SUB-Q 5,000 unit Q8HR LAZARUS Administration Hydralazine HCl 10 mg 02/20/22 19:44 Hydralazine 20 Mg/1 Ml Inj IV Q6H PRN Hypertension Hydrophilic Ointment 1 applic 02/24/22 15:05 Lip Therapy Vaseline TP Q2HR PRN Dry Lips Fentanyl Citrate 2,000 mcg in 100 mls @ 3.16 mls/hr 02/24/22 16:00 02/26/22 02:00 Fentanyl Drip Premix IV 0 mcg/kg/hr TITR LAZARUS 0 mls/hr Titration Protocol 1 MCG/KG/HR Propofol 1,000 mg in 100 mls @ 1.896 mls/hr 02/24/22 16:00 Diprivan 10 Mg/Ml IV TITR LAZARUS Protocol 5 MCG/KG/MIN Levetiracetam 500 mg 02/25/22 22:00 02/27/22 09:15 Levetiracetam 500 Mg/5 Ml Oral Liqd FEEDTUBE 500 mg BID LAZARUS Administration Levothyroxine Sodium 25 mcg 02/26/22 06:00 02/27/22 05:36 Levothyroxine 25 Mcg Tab FEEDTUBE 25 mcg QAM@0600 LAZARUS Administration Magnesium Hydroxide 30 ml 02/19/22 02:02 Magnesium Hydroxide (Mom) Oral Liqd Udc PO Q4H PRN Constipation Midodrine 10 mg 02/26/22 08:00 02/27/22 13:32 Midodrine 10 Mg Tab PO 10 mg TID@0800,1200,1600 LAZARUS Administration Morphine Sulfate 2 mg 02/19/22 02:02 Morphine 2 Mg/1 Ml Inj IV Q4H PRN Pain, Moderate (4-6) Morphine Sulfate 4 mg 02/19/22 02:02 Morphine 4 Mg/1 Ml Inj IV Q4H PRN Pain , Severe (7-10) Multi-Ingred Cream/Lotion/Oil/Oint 1 applic 02/24/22 15:05 Mineral Oil/Petrolatum, White Ophth Oint 3.5 Gm OU Q4HR PRN Dry Eye(s) Ondansetron HCl 4 mg 02/19/22 02:02 Ondansetron 4 Mg/2 Ml Inj IV Q8H PRN Nausea And Vomiting Pravastatin Sodium 40 mg 02/25/22 22:00 02/26/22 21:31 Pravastatin 40 Mg Tab FEEDTUBE 40 mg QHS LAZARUS Administration Senna/Docusate Sodium 1 tab 02/24/22 22:00 02/27/22 09:15 Sennosides/Docusate Sodium 8.6/50 Mg Tab FEEDTUBE Not Given BID LAZARUS Sodium Chloride 10 ml 02/19/22 10:00 02/27/22 09:15 Sodium Chloride 0.9% 10 Ml Flush Syringe IV 10 ml BID LAZARUS Administration Sodium Chloride 10 ml 02/19/22 02:02 02/19/22 06:41 Sodium Chloride 0.9% 10 Ml Flush Syringe IV 10 ml PRN PRN Administration LINE FLUSH Nutrition/Malnutrition Assess - Dietary Evaluation Nutrition/Malnutrition Findings: Nutrition Notes Start: 02/19/22 14:29 Freq: Status: Active Protocol: Document 02/27/22 10:04 TIERRA (Rec: 02/27/22 10:40 TIERRA [id number]) Nutrition Notes Initial or Follow up Reassessment Current Diagnosis Hypertension,Respiratory Failure,Hyperlipidemia Other Pertinent Diagnosis Encephalopathy, Seizure Broncogenic Carcinoma pui, Down Syndrome. Current Diet TF-Vital AF 1.2 Yordy @ 50 ml/hr (from L 02/27). Labs/Tests 02/27: CO2 31, Crea 0.6, Glu 107, Ca 7.8. Pertinent Medications 02/27: Levothyroxine, others nutritionally unremarkable. Height 5 ft 3 in Weight 63.2 kg [place] Body Weight (kg) 56.36 BMI 24.7 Weight change and time frame No body weight change reported in 5 days. Weight Status Appropriate Subjective/Other Information RD consult for routine F/U on TF tolerance/continuation. TF restarted last night, as Jevity 1.2 Yordy @ 55 ml/hr, I change the formula to TF- Vital AF 1.2 Yordy @ 50 ml/hr. Pt continues on Mechanical Ventilation, O2 saturation @ 98%, according to Physical Assessment History notes. Pt has missing teerth, according to Physical Assessment History notes. Pt remains incontinent, according to Physical Assessment History notes. Possible extubation on 02/28, according to Progress notes. Percent of energy/protein needs met: Prescribed TF-Vital AF 1.2 Yordy @ 50 ml/hr provides for energy/protein needs (1,450 Kcal/91 g) during LOS, 104% Kcal; 100% AA. Burn Absent Trauma Absent GI Symptoms None Food Allergy No Skin Integrity/Comment Sacral decubitus stage I-II ulcer. Current % PO Other Minimum of two criteria No Fluid Accumulation N/A Reduced Sound Technician Strength N/A (non-severe) Protein-Calorie Malnutrition N\A #1 Nutrition Diagnosis Inadequate oral intake Etiology Pt remains on Mechanical Ventilation. Diagnosis Progress(for reassessment Continues documentation) Is patient on ventilator? Yes Is Patient Ambulatory and/or Out of Bed No REE-([place]-St. Jeor-confined to bed) 1591.836 Kcal/Kg value to use for calculation 22 Approximate Energy Requirements Using 1390 kcal/Kg Calculation Used for Recommendations [facility] Additional Notes Protein: 1.2-2 g/Kg ABW; 76- 126 g/day. Fluids: 1 ml/Kcal, or as per MD. Nutrition Intervention Nutrition Support: Change formula to TF-Vital AF 1.2 Yordy @ 50 ml/hr. Flush: 70 ml water Q 4 hr, or as per MD. Kcal 1,450 Protein (gm) 91 Carbohydrates (gm) 134 Fat (gm) 65 Fluid (mL) 980 Fiber (gm) 6 % RDI: 104% Kcal; 100% AA. Goal #1 Provide at least 75% of energy /protein needs through Enteral Feeding during LOS. Goal #2 Adjust the dietary intervention to better serve Pt's needs and clinical conditions during LOS. Follow-Up By: 02/28/22 Additional Comments Continue monitoring on ventilation status, TF tolerance, and BM. <SILVIA BUCHANAN - Last Filed: 03/10/22 11:19> History Interval history: I saw and evaluated the patient. I agree with the findings and the plan of care as documented in the Nurse Practitioner's~note, with the following corrections and additions. Hospitalist Physical - Constitutional Vitals: Temp Pulse Resp BP Pulse Ox 98.8 F 73 15 82/41 98 03/10/22 07:13 03/10/22 08:40 03/10/22 08:40 03/10/22 08:00 03/10/22 08:00 HEART Score - HEART Score Troponin: Troponin T < 0.010 ng/mL (0.00-0.029) 02/18/22 21:02 Results - Labs CBC & Chem 7: 03/10/22 03:57 03/10/22 03:57 Labs: Laboratory Last Values WBC 10.2 K/mm3 (4.5-11.0) 03/10/22 03:57 RBC 2.99 M/mm3 (3.65-5.03) L 03/10/22 03:57 Hgb 9.9 gm/dl (11.8-15.2) L 03/10/22 03:57 Hct 30.3 % (35.5-45.6) L 03/10/22 03:57 MCV 102 fl (84-94) H 03/10/22 03:57 MCH 33 pg (28-32) H 03/10/22 03:57 MCHC 33 % (32-34) 03/10/22 03:57 RDW 16.8 % (13.2-15.2) H 03/10/22 03:57 Plt Count 329 K/mm3 (140-440) 03/10/22 03:57 Lymph % (Auto) 13.3 % (13.4-35.0) L 03/10/22 03:57 Dougherty % (Auto) 12.5 % (0.0-7.3) H 03/10/22 03:57 Eos % (Auto) 1.4 % (0.0-4.3) 03/10/22 03:57 Baso % (Auto) 0.4 % (0.0-1.8) 03/10/22 03:57 Lymph # (Auto) 1.3 K/mm3 (1.2-5.4) 03/10/22 03:57 [place]herty # (Auto) 1.3 K/mm3 (0.0-0.8) H 03/10/22 03:57 Eos # (Auto) 0.1 K/mm3 (0.0-0.4) 03/10/22 03:57 Baso # (Auto) 0.0 K/mm3 (0.0-0.1) 03/10/22 03:57 Add Manual Diff Complete 03/03/22 03:54 Total Counted 100 03/03/22 03:54 Seg Neutrophils % 72.4 % (40.0-70.0) H 03/10/22 03:57 Seg Neuts % (Manual) 95.0 % (40.0-70.0) H 03/03/22 03:54 Band Neutrophils % 0 % 03/03/22 03:54 Lymphocytes % (Manual) 3.0 % (13.4-35.0) L 03/03/22 03:54 Reactive Lymphs % (Man) 0 % 03/03/22 03:54 Monocytes % (Manual) 2.0 % (0.0-7.3) 03/03/22 03:54 Eosinophils % (Manual) 0 % (0.0-4.3) 03/03/22 03:54 Basophils % (Manual) 0 % (0.0-1.8) 03/03/22 03:54 Metamyelocytes % 0 % 03/03/22 03:54 Myelocytes % 0 % 03/03/22 03:54 Promyelocytes % 0 % 03/03/22 03:54 Blast Cells % 0 % 03/03/22 03:54 Nucleated RBC % Not Reportable 03/03/22 03:54 Seg Neutrophils # 7.4 K/mm3 (1.8-7.7) 03/10/22 03:57 Seg Neutrophils # Man 18.5 K/mm3 (1.8-7.7) H 03/03/22 03:54 Band Neutrophils # 0.0 K/mm3 03/03/22 03:54 Lymphocytes # (Manual) 0.6 K/mm3 (1.2-5.4) L 03/03/22 03:54 Abs React Lymphs (Man) 0.0 K/mm3 03/03/22 03:54 Monocytes # (Manual) 0.4 K/mm3 (0.0-0.8) 03/03/22 03:54 Eosinophils # (Manual) 0.0 K/mm3 (0.0-0.4) 03/03/22 03:54 Basophils # (Manual) 0.0 K/mm3 (0.0-0.1) 03/03/22 03:54 Metamyelocytes # 0.0 K/mm3 03/03/22 03:54 Myelocytes # 0.0 K/mm3 03/03/22 03:54 Promyelocytes # 0.0 K/mm3 03/03/22 03:54 Blast Cells # 0.0 K/mm3 03/03/22 03:54 WBC Morphology Not Reportable 03/03/22 03:54 Hypersegmented Neuts Not Reportable 03/03/22 03:54 Hyposegmented Neuts Not Reportable 03/03/22 03:54 Hypogranular Neuts Not Reportable 03/03/22 03:54 Smudge Cells Not Reportable 03/03/22 03:54 Toxic Granulation Not Reportable 03/03/22 03:54 Toxic Vacuolation Not Reportable 03/03/22 03:54 Dohle Bodies Not Reportable 03/03/22 03:54 Pelger-Huet Anomaly Not Reportable 03/03/22 03:54 Lakshmi Rods Not Reportable 03/03/22 03:54 Platelet Estimate Consistent w auto 03/03/22 03:54 Clumped Platelets Not Reportable 03/03/22 03:54 Plt Clumps, EDTA Not Reportable 03/03/22 03:54 Large Platelets Not Reportable 03/03/22 03:54 Giant Platelets Not Reportable 03/03/22 03:54 Platelet Satelliting Not Reportable 03/03/22 03:54 Plt Morphology Comment Not Reportable 03/03/22 03:54 RBC Morphology Not Reportable 03/03/22 03:54 Dimorphic RBCs Not Reportable 03/03/22 03:54 Polychromasia Not Reportable 03/03/22 03:54 Hypochromasia Not Reportable 03/03/22 03:54 Poikilocytosis Not Reportable 03/03/22 03:54 Anisocytosis 1+ 03/03/22 03:54 Microcytosis Not Reportable 03/03/22 03:54 Macrocytosis Not Reportable 03/03/22 03:54 Spherocytes Not Reportable 03/03/22 03:54 Pappenheimer Bodies Not Reportable 03/03/22 03:54 Sickle Cells Not Reportable 03/03/22 03:54 Target Cells Not Reportable 03/03/22 03:54 Tear Drop Cells Not Reportable 03/03/22 03:54 Ovalocytes Not Reportable 03/03/22 03:54 Helmet Cells Not Reportable 03/03/22 03:54 [place] Bodies Not Reportable 03/03/22 03:54 [place] Rings Not Reportable 03/03/22 03:54 [place] Cells Not Reportable 03/03/22 03:54 Bite Cells Not Reportable 03/03/22 03:54 Crenated Cell Not Reportable 03/03/22 03:54 Elliptocytes Not Reportable 03/03/22 03:54 Acanthocytes (Spur) Not Reportable 03/03/22 03:54 Rouleaux Not Reportable 03/03/22 03:54 Hemoglobin C Crystals Not Reportable 03/03/22 03:54 Schistocytes Not Reportable 03/03/22 03:54 Malaria parasites Not Reportable 03/03/22 03:54 [place] Bodies Not Reportable 03/03/22 03:54 Hem Pathologist Commnt No 03/03/22 03:54 PT 16.9 Sec. (12.2-14.9) H 02/18/22 21:02 INR 1.20 (0.87-1.13) H 02/18/22 21:02 ABG pH 7.465 pH Units (7.350-7.450) H 03/10/22 04:50 ABG pCO2 45.3 mm Hg 03/10/22 04:50 ABG pO2 89.4 mm Hg (80.0-90.0) 03/10/22 04:50 ABG HCO3 31.9 mmol/L (20.0-26.0) H 03/10/22 04:50 ABG O2 Saturation 97.3 % (95.0-99.0) 03/10/22 04:50 ABG O2 Content 14.9 (0.0-44) 03/10/22 04:50 ABG Base Excess 7.3 mmol/L (-2.0-3.0) H 03/10/22 04:50 ABG Hemoglobin 11.0 gm/dl (14.0-18.0) L 03/10/22 04:50 ABG Carboxyhemoglobin 1.6 % (0.0-5.0) 03/10/22 04:50 ABG Methemoglobin 0.5 % (0.0-1.5) 03/10/22 04:50 Oxyhemoglobin 95.2 % (95.0-99.0) 03/10/22 04:50 FiO2 30 % 03/10/22 04:50 Sodium 137 mmol/L (137-145) 03/10/22 03:57 Potassium 3.4 mmol/L (3.6-5.0) L 03/10/22 03:57 Chloride 101.9 mmol/L (98-107) 03/10/22 03:57 Carbon Dioxide 30 mmol/L (22-30) 03/10/22 03:57 Anion Gap 9 mmol/L 03/10/22 03:57 BUN 18 mg/dL (9-20) 03/10/22 03:57 Creatinine 0.6 mg/dL (0.8-1.3) L 03/10/22 03:57 Estimated GFR > 60 ml/min 03/10/22 03:57 BUN/Creatinine Ratio 30 % 03/10/22 03:57 Glucose 95 mg/dL (75-100) 03/10/22 03:57 POC Glucose 92 mg/dL (70-105) 03/09/22 23:59 Lactic Acid 1.20 mmol/L (0.7-2.0) 02/18/22 21:02 Calcium 8.1 mg/dL (8.4-10.2) L 03/10/22 03:57 Phosphorus 2.00 mg/dL (2.5-4.5) L 03/06/22 04:17 Magnesium 1.90 mg/dL (1.7-2.3) 03/06/22 04:17 Total Bilirubin 0.30 mg/dL (0.1-1.2) 03/10/22 03:57 AST 17 units/L (5-40) 03/10/22 03:57 ALT 18 units/L (7-56) 03/10/22 03:57 Alkaline Phosphatase 89 units/L (35-129) 03/10/22 03:57 Ammonia 14.0 umol/L (25-60) L 02/18/22 23:22 Troponin T < 0.010 ng/mL (0.00-0.029) 02/18/22 21:02 Total Protein 6.6 g/dL (6.3-8.2) 03/10/22 03:57 Albumin 1.9 g/dL (3.9-5) L 03/10/22 03:57 Albumin/Globulin Ratio 0.4 % 03/10/22 03:57 Urine Color Dark yellow (Yellow) 02/18/22 Unknown Urine Turbidity Clear (Clear) 02/18/22 Unknown Urine pH 7.0 (5.0-7.0) 02/18/22 Unknown Ur Specific [place] 1.015 (1.003-1.030) 02/18/22 Unknown Urine Protein <15 mg/dl mg/dL (Negative) 02/18/22 Unknown Urine Glucose (UA) Negative mg/dL (Negative) 02/18/22 Unknown Urine Ketones Negative mg/dL (Negative) 02/18/22 Unknown Urine Blood Trace (Negative) 02/18/22 Unknown Urine Nitrite Negative (Negative) 02/18/22 Unknown Urine Bilirubin Negative (Negative) 02/18/22 Unknown Urine Urobilinogen < 2.0 mg/dL (<2.0) 02/18/22 Unknown Ur Leukocyte Esterase Negative (Negative) 02/18/22 Unknown Urine WBC (Auto) 2.0 /HPF (0.0-6.0) 02/18/22 Unknown Urine RBC (Auto) 9.0 /HPF (0.0-6.0) 02/18/22 Unknown Urine Mucus Few /HPF 02/18/22 Unknown Urine Opiates Screen Negative 02/18/22 Unknown Urine Methadone Screen Negative 02/18/22 Unknown Ur Barbiturates Screen Negative 02/18/22 Unknown Ur Phencyclidine Scrn Negative 02/18/22 Unknown Ur Amphetamines Screen Negative 02/18/22 Unknown U Benzodiazepines Scrn Negative 02/18/22 Unknown Urine Cocaine Screen Negative 02/18/22 Unknown U Marijuana (THC) Screen Negative 02/18/22 Unknown Drugs of Abuse Note Disclamer 02/18/22 Unknown Plasma/Serum Alcohol < 0.01 % (0-0.07) 02/18/22 21:02 Horowitz/IV: Voiding Method Indwelling Catheter Active Medications - Current Medications Current Medications: Generic Name Dose Route Start Last Admin Trade Name Freq PRN Reason Stop Dose Admin Acetaminophen 650 mg 03/03/22 09:00 Acetaminophen 325 Mg/10.15 Ml Oral Liqd Unit Dose FEEDTUBE Q4H PRN Pain, Mild (1-3); TEMP > 100.4 Albuterol 2.5 mg 02/23/22 16:00 03/10/22 08:23 Albuterol 2.5 Mg/3 Ml Nebu IH 2.5 mg Q4HRT LAZARUS Administration Famotidine 20 mg 02/25/22 10:00 03/10/22 10:59 Famotidine 20 Mg Tab FEEDTUBE 20 mg BID LAZARUS Administration Heparin Sodium (Porcine) 5,000 unit 02/19/22 06:00 03/10/22 06:00 Heparin 5,000 Unit/1 Ml Vial SUB-Q 5,000 unit Q8HR LAZARUS Administration Hydrophilic Ointment 1 applic 02/24/22 15:05 Lip Therapy Vaseline TP Q2HR PRN Dry Lips Levetiracetam 500 mg 02/25/22 22:00 03/10/22 10:59 Levetiracetam 500 Mg/5 Ml Oral Liqd FEEDTUBE 500 mg BID LAZARUS Administration Levothyroxine Sodium 25 mcg 02/26/22 06:00 03/10/22 06:00 Levothyroxine 25 Mcg Tab FEEDTUBE 25 mcg QAM@0600 LAZARUS Administration Magnesium Hydroxide 30 ml 02/19/22 02:02 Magnesium Hydroxide (Mom) Oral Liqd Udc PO Q4H PRN Constipation Morphine Sulfate 2 mg 02/19/22 02:02 Morphine 2 Mg/1 Ml Inj IV Q4H PRN Pain, Moderate (4-6) Morphine Sulfate 4 mg 02/19/22 02:02 Morphine 4 Mg/1 Ml Inj IV Q4H PRN Pain , Severe (7-10) Multi-Ingred Cream/Lotion/Oil/Oint 1 applic 02/24/22 15:05 Mineral Oil/Petrolatum, White Ophth Oint 3.5 Gm OU Q4HR PRN Dry Eye(s) Ondansetron HCl 4 mg 02/19/22 02:02 Ondansetron 4 Mg/2 Ml Inj IV Q8H PRN Nausea And Vomiting Potassium Chloride 40 meq 03/10/22 10:44 03/10/22 11:09 Potassium Chloride 20 Meq Packet FEEDTUBE 03/10/22 15:00 40 meq ONCE LAZARUS Administration Pravastatin Sodium 40 mg 02/25/22 22:00 03/09/22 21:16 Pravastatin 40 Mg Tab FEEDTUBE 40 mg QHS LAZARUS Administration Senna/Docusate Sodium 1 tab 02/24/22 22:00 03/10/22 10:59 Sennosides/Docusate Sodium 8.6/50 Mg Tab FEEDTUBE 1 tab BID LAZARUS Administration Sodium Chloride 10 ml 02/19/22 10:00 03/10/22 11:00 Sodium Chloride 0.9% 10 Ml Flush Syringe IV 10 ml BID LAZARUS Administration Sodium Chloride 10 ml 02/19/22 02:02 03/03/22 14:21 Sodium Chloride 0.9% 10 Ml Flush Syringe IV 10 ml PRN PRN Administration LINE FLUSH Nutrition/Malnutrition Assess - Dietary Evaluation Nutrition/Malnutrition Findings: Nutrition Notes Start: 02/19/22 14:29 Freq: Status: Active Protocol: Document 03/07/22 14:34 IVAN (Rec: 03/07/22 14:44 IVAN [id number]) Nutrition Notes Initial or Follow up Reassessment Current Diagnosis Hypertension,Respiratory Failure,Hyperlipidemia Other Pertinent Diagnosis Asp pneu, acute encephalopathy , seizure d/o, partial blindness Current Diet TF - Vital AF 1.2 at 50ml/hr Labs/Tests Reviewed Pertinent Medications Reviewed Height 5 ft 3 in Weight 63.2 kg [place] Body Weight (kg) 56.36 BMI 24.7 Weight change and time frame Unable to obtain current wt; bed scale not working - RN aware Weight Status Appropriate Subjective/Other Information Observed TF infusing at goal rate. Pt tolerating TF and remains on vent support. Pt been intubated since 02/24/22 via ETT. Trach/PEG placement pending. Percent of energy/protein needs met: 90% energy 100% pro Burn Absent Trauma Absent #1 Nutrition Diagnosis Inadequate oral intake Diagnosis Progress(for reassessment Continues documentation) Is patient on ventilator? Yes Is Patient Ambulatory and/or Out of Bed No REE-([place] [facility]-confined to bed) [phone] Calculation Used for Recommendations [facility] Additional Notes Pro needs 1.2-2g/k-126g/ day Fluid needs 1ml/kcal Nutrition Intervention Nutrition Support: Continue Vital AF 1.2 at 50ml/ hr with 75ml water flush q4h. Kcal 1,440 Protein (gm) 90 Carbohydrates (gm) 133 Fat (gm) 65 Fluid (mL) 973 Fiber (gm) 6 Goal #1 TF tolerance Goal #2 TF to meet at least 75% energy and pro needs Follow-Up By: 03/14/22 Additional Comments F/U: stable TF, trach/PEG placement, vent status, wt
--- NOTE | 2022-02-27 17:11 | Cat Scan Report ---
CT CHEST WITHOUT CONTRAST INDICATION / CLINICAL INFORMATION: r/o lung mass. TECHNIQUE: Axial CT images were obtained through the chest without contrast. All CT scans at this [facility] ation are performed using CT dose reduction for ALARA by means of automated exposure control. COMPARISON: CTA chest 8 days prior FINDINGS: HEART: No significant abnormality. CORONARY ARTERY CALCIFICATION: Absent -- None. THORACIC AORTA: No significant abnormality. MEDIASTINUM / NAM: Stable enlarged left paratracheal node. PLEURA: Small bilateral pleural effusions are noted. No pneumothorax. LUNGS: In addition to compressive atelectasis in the lung bases, is patchy right lung airspace diseas e. There is a small amount of mucus within the right mainstem bronchus. No right hilar/bronchial mass is seen. ADDITIONAL FINDINGS: Endotracheal tube is in satisfactory position. UPPER ABDOMEN: No significant abnormality. SKELETAL SYSTEM: No significant abnormality. IMPRESSION: 1. Right mainstem bronchus is patent with a small amount of endobronchial fluid which may be mucus. T his may account for the appearance on the prior CTA chest (fluid-filled airway rather than endobronch ial lesion. Previously seen complete left lower lobe since related to bronchial occlusion has signifi cantly improved, there is persistent compressive atelectasis in the right lower lung secondary to the pleural effusion. 2. Bilateral pleural effusions. 3. Right lung pneumonia. 4. Stable mildly enlarged left paratracheal mediastinal node. Signer Name: Jewel Fisher MD Signed: 02/27/2022 5:07 PM Workstation Name: [id number]
[2022-02-27] MEDS: PRAVASTATIN 40 MG TAB FEEDTUBE SCH (21:21)
[2022-02-28] MEDS: ALBUTEROL 2.5 MG/3 ML NEBU IH SCH ×6 (04:00→23:27)
[2022-02-28 04:04] LABS: Hematocrit 30.7 % (35.5-45.6); Hemoglobin 10.2 gm/dl (11.8-15.2); Mean Corpuscular HGB Conc 33 % (32-34); Mean Corpuscular Volume 101 fl (84-94); Platelet Count 322 K/mm3 (140-440); Red Blood Count 3.05 M/mm3 (3.65-5.03); Red Cell Distribution Width 16.1 % (13.2-15.2)
[2022-02-28 05:06] LABS: ABG Base Excess 11.5 mmol/L (-2.0-3.0); ABG HCO3 37.1 mmol/L (20.0-26.0); ABG Methemoglobin 0.6 % (0.0-1.5); ABG Oxygen Saturation 97.1 % (95.0-99.0); ABG PCO2 54.4 mm Hg; ABG PH 7.451 pH Units (7.350-7.450)
--- NOTE | 2022-02-28 05:37 | XRay Report ---
XR chest 1V ap INDICATION / CLINICAL INFORMATION: follow up respiratory failure. COMPARISON: Radiograph from yesterday. FINDINGS: SUPPORT DEVICES: Unchanged. HEART /PULMONARY VASCULATURE: Unchanged. LUNGS / PLEURA: Diffuse increased interstitial markings and right basilar airspace opacities are unch anged. No pneumothorax. IMPRESSION: 1. No significant interval change. Signer Name: Loy Craig MD Signed: 02/28/2022 5:33 AM Workstation Name: [id number]
[2022-02-28] MEDS: HEPARIN 5,000 UNIT/1 ML VIAL SUB-Q SCH ×3 (06:18→21:52)
[2022-02-28] MEDS: LEVOTHYROXINE 25 MCG TAB FEEDTUBE SCH (06:19)
[2022-02-28] MEDS: FAMOTIDINE 20 MG TAB FEEDTUBE SCH ×2 (09:37→21:52)
[2022-02-28] MEDS: levETIRAcetam 500 MG/5 ML ORAL LIQD FEEDTUBE SCH ×2 (09:37→21:52)
[2022-02-28] MEDS: SENNOSIDES/DOCUSATE SODIUM 8.6/50 MG TAB FEEDTUBE SCH ×2 (09:38→21:53)
[2022-02-28] MEDS: MIDODRINE 10 MG TAB PO SCH ×3 (09:38→16:36)
[2022-02-28 09:44] LABS: ABG Base Excess 10.1 mmol/L (-2.0-3.0); ABG HCO3 34.6 mmol/L (20.0-26.0); ABG Methemoglobin 0.6 % (0.0-1.5); ABG Oxygen Saturation 97.2 % (95.0-99.0); ABG PCO2 46.7 mm Hg; ABG PH 7.488 pH Units (7.350-7.450); ABG PO2 87.5 mm Hg (80.0-90.0)
[2022-02-28] MEDS ORDERED: EPINEPHrine RACEMIC 2.25% 0.5ML NEBU IH ONE (10:13)
[2022-02-28] MEDS ORDERED: SODIUM CHLORIDE 0.9% 1000 ML 1,000 ML ONE (10:34)
[2022-02-28] MEDS ORDERED: NORepinephrine/NS 8 MG-250 ML 8 MG/250 ML INFUS..BTL IV ONE (10:37)
[2022-02-28] MEDS ORDERED: SUCCINYLCHOLINE CHLORIDE 200 MG/10 ML INJ MDV ONE (10:41)
--- NOTE | 2022-02-28 11:23 | Event Note ---
Date: 02/28/22 (Intubation) 10:31 -10:43 am. Called for Intubation due to failed extubation trial. Found patient Mask ventilated by Resp. Therapy. Saturation 84%. Intubation successful on first attempt. Induction with Propofol 100mg and 100mg Succinylcholine. ETT size 8 placed with glidescope blade 3. Bilateral breath sounds equal and clear + EtCO2. Saturation 100%.
--- NOTE | 2022-02-28 11:30 | XRay Report ---
CHEST 1 VIEW 02/28/2022 10:12 AM INDICATION / CLINICAL INFORMATION: reintubated. COMPARISON: Earlier today at 0445 hours FINDINGS: SUPPORT DEVICES: I believe I see the distal tip of the endotracheal tube along the superior border of the film. The endotracheal tube terminates 11 cm superior to the colt. It appears to have been ret racted since the previous exam. Please correlate with the image and consider advancement by 6 to 7 cm . The nasogastric tube is unchanged terminating in the fundus of the stomach. HEART / MEDIASTINUM: No significant abnormality. LUNGS / PLEURA: Mild improvement in pulmonary congestion or bilateral infiltrates. Small pleural effu sions also appear slightly decreased. No pneumothorax. ADDITIONAL FINDINGS: No significant additional findings. IMPRESSION: 1. Endotracheal tube as described. 2. Improvement in the bilateral congestive changes or infiltrates and small pleural effusions. Signer Name: Krishna Coreas Jr, MD Signed: 02/28/2022 11:25 AM Workstation Name: [id number]
--- NOTE | 2022-02-28 11:49 | XRay Report ---
CHEST 1 VIEW 02/28/2022 11:13 AM INDICATION / CLINICAL INFORMATION: Tube placement. COMPARISON: None available. FINDINGS: SUPPORT DEVICES: NG tube extends within the stomach. ET tube is at the level of the clavicular heads 10.5 cm above the colt. HEART / MEDIASTINUM: No significant abnormality. LUNGS / PLEURA: Bilateral pulmonary opacities most significant in right lower lung slightly increased No pneumothorax. Signer Name: Buddy Haley MD Signed: 02/28/2022 11:44 AM Workstation Name: [id number]
--- NOTE | 2022-02-28 12:57 | Progress Note ---
<CARSON ROSS - Last Filed: 02/28/22 13:55> Assessment and Plan Assessment and plan: This is a 51-year-old male with HTN, seizure disorder, Down syndrome, HLD, partial blindness admitted with aspiration pneumonia, probable bronchogenic carcinoma, acute hypoxic respiratory failure and acute encephalopathy Neuro: Acute encephalopathy, h/o seizure disorder, Down syndrome, partial blindness -Patient currently sedated with propofol -RASS goal 0 to -1 -Reorientation as needed -Maintain sleep-wake cycle -aspiration/seizure precautions -As needed analgesia -CT head showed no acute abnormality -Continue Keppra Cardiac: Hypotension, h/o HTN, HLD -Cardiology consulted, appreciate recommendations -Blood pressure monitoring per protocol -d/c amlodipine -Midodrine TID -s/p 500 ml NS 02/25 and 1L LR 02/26 Respiratory: Acute hypoxic respiratory failure, r/o bronchogenic carcinoma -CCM consulted, appreciate recommendations -Intubated on 02/24 with a 8.0 at 23 at the lips but extubated 02/28 -reintubated 02/28 with 8.0 OETT -Vent settings: AC rate 14, TV 360, PEEP 8, FO2 50% -See RT notes for titration -VAP bundle -SPO2 monitoring -02/18 CTA chest showed no evidence of pulmonary embolism, suspected bronchogenic carcinoma with associated obstruction of the right lower lobe proximal bronchus segment, 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 adenopathy and suspected to left lower lobe metastatic nodule -02/26 Bronch->mucous, no lesion noted -02/27 CT chest showed right mainstem bronchus patent with small amount of interval bronchial fluid which may be mucus (this may account for the appearance of the prior CTA chest fluid-filled airway rather than entering bronchial lesion), previously seen complete left lower lobe since related to bronchial occlusion has significantly improved, there is persistent compressive atelectasis in the right lower lung secondary to the pleural effusion, bilateral pleural effusions, right lung pneumonia -CT neck pending GI: Moderate protein calorie malnutrition -24 hours -90 mL -PPI -NTR consulted for tube feedings -BR: Senokot S : Metabolic alkalosis -Monitor intake and output -Renally dose medications -Avoid nephrotoxic medications -Trend BMP ID: Aspiration PNA -S/p Rocephin for 5 days (02/19-02/24) -Monitor WBC and temperature curve Endo: NAD -Avoid hypoglycemia -Accu-Cheks every 6 -Avoid hypoglycemia Heme: NAD -Trend CBC -Transfuse hemoglobin less than 7 -SCDs to BLE while in bed The high probability of a clinically significant, sudden or life threatening deterioration of the [resp] system(s) required my full and direct attention, intervention and personal management. The aggregate critical care time was [60] minutes. This time is in addition to time spent performing reported procedures but includes the following: [x] Data Review and interpretation [x] Patient assessment and monitoring of vital signs [x] Documentation [x] Medication orders and management Disposition Plan: icu Total Time Spent with Patient (Minutes): 60 History Interval history: This is a 51-year-old male with HTN, seizure disorder, Down syndrome, HLD, and partial blindness was a resident of the [facility] who presented to emergency department on 02/19 for evaluation of change in mental status. Of note patient was recently discharged a few weeks ago for a seizure disorder and UTI. Upon arrival to the emergency department patient was noted to be hypoxic with SPO2 in the 80s on a nonrebreather with difficulty breathing. Work-up in the emergency department revealed CXR which showed elevation of the right hemidiaphragm, right lower lung atelectasis and effusion with mild increased pulmonary vascularity but no pneumothorax and CT of the head did not show any acute abnormality. 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 Patient was admitted to the hospitalist service to the floor. Hospital course to date: 02/19/2022. Consult pulmonary for further evaluation and possible bronchoscopy. I suspect patient has component of aspiration pneumonia as well. We will obtain a speech therapy evaluation for swallowing and start empiric antibiotics. Continue O2 supplementation to maintain sats greater than 92%. 02/20/2022. Pulmonary feels that the abnormality seen on CT scan is highly unlikely for a mass given negative chest x-ray 1 month ago and no risk factors. Etiology is likely secondary to aspiration from possibly a foreign body most likely food with atelectasis of the right lower lobe. Bronchoscopy is needed in the case to evaluate to see if lung mass is there vs foreign body, but at this time not able to do because no identifiable person that is able to give consent. Continue aspiration precautions and continue speech therapy evaluation for swallowing. Keep n.p.o. for now 02/21/2022. Patient remains NPO. Consider DHT placement. Follow-up with speech therapy evaluation. Pulmonology to consider bronchoscopy if able to obtain consent. Continue IV antibiotics for aspiration pneumonia 02/22/2022. Patient remains NPO. Consider DHT placement. Follow-up with speech therapy evaluation. Pulmonology to consider bronchoscopy if able to obtain consent. Continue IV antibiotics for aspiration pneumonia 02/23/2022. DHT placed yesterday. TF initiated for nutritional support. Patient currently with strict NPO. Aspiration precautions. Pulmonology to consider bronchoscopy if able to obtain consent. Continue IV antibiotics for aspiration pneumonia 02/24: Patient was transferred to the ICU for further monitoring. This morning patient remained on high flow nasal cannula on 40 L/100% and despite repeated nasotracheal suctioning patient SPO2 remained in the 80s. Patient was placed on nonrebreather and SPO2 increased to upper 80s. Patient was subsequently intubated by anesthesia. Started on sedation. 02/25: Patient remains sedated on fentanyl, potassium and magnesium repleted. IV fluids and amlodipine discontinued. Possible bronchoscopy tomorrow. 02/26: Patient had a bronchoscopy today which showed mucus and no endobronchial lesions or masses. FiO2 was increased to 100 during and postprocedure weaning as tolerated. Repeat CXR is much improved after bronc. Given 1 L LR bolus due to hypotension. No acute events reported overnight. 02/27: Decreased PEEP, will repeat CT of chest. no acute changes overnight. 02/28: Patient was extubated today however had to be be intubated shortly after. Patient ETT looked mispositioned on x-ray and Dr. Alonzo did do a bedside bronc. Patient was briefly hypotensive and on Levophed postintubation however Levophed was quickly titrated off and patient did not require central line. No acute events reported overnight. Will obtain CT neck d/t difficulty intubating. Ethic committee consulted. Hospitalist Physical - Constitutional Vitals: Temp Pulse Resp BP Pulse Ox 97.2 F L 102 H 14 90/45 94 02/28/22 12:00 02/28/22 12:00 02/28/22 12:00 02/28/22 12:00 02/28/22 12:00 General appearance: Present: no acute distress, well-nourished - EENT Eyes: Present: PERRL ENT: poor dentition - Neck Neck: Present: normal ROM - Respiratory Respiratory effort: normal Respiratory: bilateral: CTA - Cardiovascular Rhythm: regular Heart Sounds: Present: S1 & S2. Absent: systolic murmur, diastolic murmur - Extremities Extremities: no ischemia, pulses intact, pulses symmetrical, normal temperature, normal color Peripheral Pulses: within normal limits - Abdominal General gastrointestinal: soft, non-tender, non-distended, normal bowel sounds - Integumentary Integumentary: Present: warm, dry - Psychiatric Psychiatric: other - Neurologic Neurologic: other (moves all extremites) - Allied Health Allied health notes reviewed: nursing, RT, social work HEART Score - HEART Score Troponin: Troponin T < 0.010 ng/mL (0.00-0.029) 02/18/22 21:02 Results - Labs CBC & Chem 7: 02/28/22 03:38 02/27/22 04:19 Labs: Laboratory Last Values WBC 13.3 K/mm3 (4.5-11.0) H 02/28/22 03:38 RBC 3.05 M/mm3 (3.65-5.03) L 02/28/22 03:38 Hgb 10.2 gm/dl (11.8-15.2) L 02/28/22 03:38 Hct 30.7 % (35.5-45.6) L 02/28/22 03:38 MCV 101 fl (84-94) H 02/28/22 03:38 MCH 33 pg (28-32) H 02/28/22 03:38 MCHC 33 % (32-34) 02/28/22 03:38 RDW 16.1 % (13.2-15.2) H 02/28/22 03:38 Plt Count 322 K/mm3 (140-440) 02/28/22 03:38 Lymph % (Auto) 5.5 % (13.4-35.0) L 02/20/22 04:59 [place] % (Auto) 12.1 % (0.0-7.3) H 02/20/22 04:59 Eos % (Auto) 0.2 % (0.0-4.3) 02/20/22 04:59 Baso % (Auto) 0.8 % (0.0-1.8) 02/20/22 04:59 Lymph # (Auto) 0.6 K/mm3 (1.2-5.4) L 02/20/22 04:59 [place]ether # (Auto) 1.4 K/mm3 (0.0-0.8) H 02/20/22 04:59 Eos # (Auto) 0.0 K/mm3 (0.0-0.4) 02/20/22 04:59 Baso # (Auto) 0.1 K/mm3 (0.0-0.1) 02/20/22 04:59 Seg Neutrophils % 81.4 % (40.0-70.0) H 02/20/22 04:59 Seg Neutrophils # 9.2 K/mm3 (1.8-7.7) H 02/20/22 04:59 PT 16.9 Sec. (12.2-14.9) H 02/18/22 21:02 INR 1.20 (0.87-1.13) H 02/18/22 21:02 ABG pH 7.488 pH Units (7.350-7.450) H 02/28/22 09:30 ABG pCO2 46.7 mm Hg 02/28/22 09:30 ABG pO2 87.5 mm Hg (80.0-90.0) 02/28/22 09:30 ABG HCO3 34.6 mmol/L (20.0-26.0) H 02/28/22 09:30 ABG O2 Saturation 97.2 % (95.0-99.0) 02/28/22 09:30 ABG O2 Content 13.5 (0.0-44) 02/28/22 09:30 ABG Base Excess 10.1 mmol/L (-2.0-3.0) H 02/28/22 09:30 ABG Hemoglobin 10.0 gm/dl (14.0-18.0) L 02/28/22 09:30 ABG Carboxyhemoglobin 1.4 % (0.0-5.0) 02/28/22 09:30 ABG Methemoglobin 0.6 % (0.0-1.5) 02/28/22 09:30 Oxyhemoglobin 95.3 % (95.0-99.0) 02/28/22 09:30 FiO2 40 % 02/28/22 09:30 Sodium 137 mmol/L (137-145) 02/27/22 04:19 Potassium 4.3 mmol/L (3.6-5.0) 02/27/22 04:19 Chloride 100.9 mmol/L (98-107) 02/27/22 04:19 Carbon Dioxide 31 mmol/L (22-30) H 02/27/22 04:19 Anion Gap 9 mmol/L 02/27/22 04:19 BUN 11 mg/dL (9-20) 02/27/22 04:19 Creatinine 0.6 mg/dL (0.8-1.3) L 02/27/22 04:19 Estimated GFR > 60 ml/min 02/27/22 04:19 BUN/Creatinine Ratio 18 % 02/27/22 04:19 Glucose 107 mg/dL (75-100) H 02/27/22 04:19 POC Glucose 112 mg/dL (70-105) H 02/28/22 11:36 Lactic Acid 1.20 mmol/L (0.7-2.0) 02/18/22 21:02 Calcium 7.8 mg/dL (8.4-10.2) L 02/27/22 04:19 Phosphorus 3.00 mg/dL (2.5-4.5) D 02/25/22 04:12 Magnesium 1.70 mg/dL (1.7-2.3) 02/25/22 04:31 Total Bilirubin 0.50 mg/dL (0.1-1.2) 02/18/22 21:02 AST 48 units/L (5-40) H 02/18/22 21:02 ALT 64 units/L (7-56) H 02/18/22 21:02 Alkaline Phosphatase 88 units/L (35-129) 02/18/22 21:02 Ammonia 14.0 umol/L (25-60) L 02/18/22 23:22 Troponin T < 0.010 ng/mL (0.00-0.029) 02/18/22 21:02 Total Protein 7.2 g/dL (6.3-8.2) 02/18/22 21:02 Albumin 2.7 g/dL (3.9-5) L 02/18/22 21:02 Albumin/Globulin Ratio 0.6 % 02/18/22 21:02 Urine Color Dark yellow (Yellow) 02/18/22 Unknown Urine Turbidity Clear (Clear) 02/18/22 Unknown Urine pH 7.0 (5.0-7.0) 02/18/22 Unknown Ur Specific [place] 1.015 (1.003-1.030) 02/18/22 Unknown Urine Protein <15 mg/dl mg/dL (Negative) 02/18/22 Unknown Urine Glucose (UA) Negative mg/dL (Negative) 02/18/22 Unknown Urine Ketones Negative mg/dL (Negative) 02/18/22 Unknown Urine Blood Trace (Negative) 02/18/22 Unknown Urine Nitrite Negative (Negative) 02/18/22 Unknown Urine Bilirubin Negative (Negative) 02/18/22 Unknown Urine Urobilinogen < 2.0 mg/dL (<2.0) 02/18/22 Unknown Ur Leukocyte Esterase Negative (Negative) 02/18/22 Unknown Urine WBC (Auto) 2.0 /HPF (0.0-6.0) 02/18/22 Unknown Urine RBC (Auto) 9.0 /HPF (0.0-6.0) 02/18/22 Unknown Urine Mucus Few /HPF 02/18/22 Unknown Urine Opiates Screen Negative 02/18/22 Unknown Urine Methadone Screen Negative 02/18/22 Unknown Ur Barbiturates Screen Negative 02/18/22 Unknown Ur Phencyclidine Scrn Negative 02/18/22 Unknown Ur Amphetamines Screen Negative 02/18/22 Unknown U Benzodiazepines Scrn Negative 02/18/22 Unknown Urine Cocaine Screen Negative 02/18/22 Unknown U Marijuana (THC) Screen Negative 02/18/22 Unknown Drugs of Abuse Note Disclamer 02/18/22 Unknown Plasma/Serum Alcohol < 0.01 % (0-0.07) 02/18/22 21:02 Microbiology: Microbiology 02/24/22 15:30 Tracheal Aspirate Sputum Culture - Final Horowitz/IV: Voiding Method Indwelling Catheter Active Medications - Current Medications Current Medications: Generic Name Dose Route Start Last Admin Trade Name Freq PRN Reason Stop Dose Admin Acetaminophen 650 mg 02/20/22 20:10 02/20/22 20:21 Acetaminophen 650 Mg Rect Supp AL 650 mg Q4H PRN Administration Pain, Mild (1-3) Albuterol 2.5 mg 02/23/22 16:00 02/28/22 12:00 Albuterol 2.5 Mg/3 Ml Nebu IH 2.5 mg Q4HRT LAZARUS Administration Famotidine 20 mg 02/25/22 10:00 02/28/22 09:37 Famotidine 20 Mg Tab FEEDTUBE 20 mg BID LAZARUS Administration Fentanyl 50 mcg 02/24/22 15:05 Fentanyl 100 Mcg/2 Ml Inj IV Q10MIN PRN ANALGESIA Heparin Sodium (Porcine) 5,000 unit 02/19/22 06:00 02/28/22 06:18 Heparin 5,000 Unit/1 Ml Vial SUB-Q 5,000 unit Q8HR LAZARUS Administration Hydralazine HCl 10 mg 02/20/22 19:44 Hydralazine 20 Mg/1 Ml Inj IV Q6H PRN Hypertension Hydrophilic Ointment 1 applic 02/24/22 15:05 Lip Therapy Vaseline TP Q2HR PRN Dry Lips Fentanyl Citrate 2,000 mcg in 100 mls @ 3.16 mls/hr 02/24/22 16:00 02/26/22 02:00 Fentanyl Drip Premix IV 0 mcg/kg/hr TITR LAZARUS 0 mls/hr Titration Protocol 1 MCG/KG/HR Propofol 1,000 mg in 100 mls @ 1.896 mls/hr 02/24/22 16:00 02/28/22 10:50 Diprivan 10 Mg/Ml IV 5 mcg/kg/min TITR LAZARUS 1.896 mls/hr Administration Protocol 5 MCG/KG/MIN Levetiracetam 500 mg 02/25/22 22:00 02/28/22 09:37 Levetiracetam 500 Mg/5 Ml Oral Liqd FEEDTUBE 500 mg BID LAZARUS Administration Levothyroxine Sodium 25 mcg 02/26/22 06:00 02/28/22 06:19 Levothyroxine 25 Mcg Tab FEEDTUBE 25 mcg QAM@0600 LAZARUS Administration Magnesium Hydroxide 30 ml 02/19/22 02:02 Magnesium Hydroxide (Mom) Oral Liqd Udc PO Q4H PRN Constipation Midodrine 10 mg 02/26/22 08:00 02/28/22 09:38 Midodrine 10 Mg Tab PO 10 mg TID@0800,1200,1600 [facility] Administration Morphine Sulfate 2 mg 02/19/22 02:02 Morphine 2 Mg/1 Ml Inj IV Q4H PRN Pain, Moderate (4-6) Morphine Sulfate 4 mg 02/19/22 02:02 Morphine 4 Mg/1 Ml Inj IV Q4H PRN Pain , Severe (7-10) Multi-Ingred Cream/Lotion/Oil/Oint 1 applic 02/24/22 15:05 Mineral Oil/Petrolatum, White Ophth Oint 3.5 Gm OU Q4HR PRN Dry Eye(s) Ondansetron HCl 4 mg 02/19/22 02:02 Ondansetron 4 Mg/2 Ml Inj IV Q8H PRN Nausea And Vomiting Pravastatin Sodium 40 mg 02/25/22 22:00 02/27/22 21:21 Pravastatin 40 Mg Tab FEEDTUBE 40 mg QHS LAZARUS Administration Senna/Docusate Sodium 1 tab 02/24/22 22:00 02/28/22 09:38 Sennosides/Docusate Sodium 8.6/50 Mg Tab FEEDTUBE Not Given BID LAZARUS Sodium Chloride 10 ml 02/19/22 10:00 02/28/22 09:38 Sodium Chloride 0.9% 10 Ml Flush Syringe IV 10 ml BID LAZARUS Administration Sodium Chloride 10 ml 02/19/22 02:02 02/19/22 06:41 Sodium Chloride 0.9% 10 Ml Flush Syringe IV 10 ml PRN PRN Administration LINE FLUSH Nutrition/Malnutrition Assess - Dietary Evaluation Nutrition/Malnutrition Findings: Nutrition Notes Start: 02/19/22 14:29 Freq: Status: Active Protocol: Document 02/27/22 10:04 TIERRA (Rec: 02/27/22 10:40 TIERRA [id number]) Nutrition Notes Initial or Follow up Reassessment Current Diagnosis Hypertension,Respiratory Failure,Hyperlipidemia Other Pertinent Diagnosis Encephalopathy, Seizure Broncogenic Carcinoma pui, Down Syndrome. Current Diet TF-Vital AF 1.2 Yordy @ 50 ml/hr (from L 02/27). Labs/Tests 02/27: CO2 31, Crea 0.6, Glu 107, Ca 7.8. Pertinent Medications 02/27: Levothyroxine, others nutritionally unremarkable. Height 5 ft 3 in Weight 63.2 kg Fabens Body Weight (kg) 56.36 BMI 24.7 Weight change and time frame No body weight change reported in 5 days. Weight Status Appropriate Subjective/Other Information RD consult for routine F/U on TF tolerance/continuation. TF restarted last night, as Jevity 1.2 Yordy @ 55 ml/hr, I change the formula to TF- Vital AF 1.2 Yordy @ 50 ml/hr. Pt continues on Mechanical Ventilation, O2 saturation @ 98%, according to Physical Assessment History notes. Pt has missing teerth, according to Physical Assessment History notes. Pt remains incontinent, according to Physical Assessment History notes. Possible extubation on 02/28, according to Progress notes. Percent of energy/protein needs met: Prescribed TF-Vital AF 1.2 Yordy @ 50 ml/hr provides for energy/protein needs (1,450 Kcal/91 g) during LOS, 104% Kcal; 100% AA. Burn Absent Trauma Absent GI Symptoms None Food Allergy No Skin Integrity/Comment Sacral decubitus stage I-II ulcer. 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 Diagnosis Progress(for reassessment Continues documentation) Is patient on ventilator? Yes Is Patient Ambulatory and/or Out of Bed No REE-([facility]-confined to bed) 1591.836 Kcal/Kg value to use for calculation 22 Approximate Energy Requirements Using 1390 kcal/Kg Calculation Used for Recommendations [facility] Additional Notes Protein: 1.2-2 g/Kg ABW; 76- 126 g/day. Fluids: 1 ml/Kcal, or as per MD. Nutrition Intervention Nutrition Support: Change formula to TF-Vital AF 1.2 Yordy @ 50 ml/hr. Flush: 70 ml water Q 4 hr, or as per MD. Kcal 1,450 Protein (gm) 91 Carbohydrates (gm) 134 Fat (gm) 65 Fluid (mL) 980 Fiber (gm) 6 % RDI: 104% Kcal; 100% AA. Goal #1 Provide at least 75% of energy /protein needs through Enteral Feeding during LOS. Goal #2 Adjust the dietary intervention to better serve Pt's needs and clinical conditions during LOS. Follow-Up By: 02/28/22 Additional Comments Continue monitoring on ventilation status, TF tolerance, and BM. <SILVIA BUCHANAN - Last Filed: 03/10/22 11:18> History Interval history: I saw and evaluated the patient. I agree with the findings and the plan of care as documented in the Nurse Practitioner's~note, with the following corrections and additions. Hospitalist Physical - Constitutional Vitals: Temp Pulse Resp BP Pulse Ox 98.8 F 73 15 82/41 98 03/10/22 07:13 03/10/22 08:40 03/10/22 08:40 03/10/22 08:00 03/10/22 08:00 HEART Score - HEART Score Troponin: Troponin T < 0.010 ng/mL (0.00-0.029) 02/18/22 21:02 Results - Labs CBC & Chem 7: 03/10/22 03:57 03/10/22 03:57 Labs: Laboratory Last Values WBC 10.2 K/mm3 (4.5-11.0) 03/10/22 03:57 RBC 2.99 M/mm3 (3.65-5.03) L 03/10/22 03:57 Hgb 9.9 gm/dl (11.8-15.2) L 03/10/22 03:57 Hct 30.3 % (35.5-45.6) L 03/10/22 03:57 MCV 102 fl (84-94) H 03/10/22 03:57 MCH 33 pg (28-32) H 03/10/22 03:57 MCHC 33 % (32-34) 03/10/22 03:57 RDW 16.8 % (13.2-15.2) H 03/10/22 03:57 Plt Count 329 K/mm3 (140-440) 03/10/22 03:57 Lymph % (Auto) 13.3 % (13.4-35.0) L 03/10/22 03:57 [place] % (Auto) 12.5 % (0.0-7.3) H 03/10/22 03:57 Eos % (Auto) 1.4 % (0.0-4.3) 03/10/22 03:57 Baso % (Auto) 0.4 % (0.0-1.8) 03/10/22 03:57 Lymph # (Auto) 1.3 K/mm3 (1.2-5.4) 03/10/22 03:57 [place] # (Auto) 1.3 K/mm3 (0.0-0.8) H 03/10/22 03:57 Eos # (Auto) 0.1 K/mm3 (0.0-0.4) 03/10/22 03:57 Baso # (Auto) 0.0 K/mm3 (0.0-0.1) 03/10/22 03:57 Add Manual Diff Complete 03/03/22 03:54 Total Counted 100 03/03/22 03:54 Seg Neutrophils % 72.4 % (40.0-70.0) H 03/10/22 03:57 Seg Neuts % (Manual) 95.0 % (40.0-70.0) H 03/03/22 03:54 Band Neutrophils % 0 % 03/03/22 03:54 Lymphocytes % (Manual) 3.0 % (13.4-35.0) L 03/03/22 03:54 Reactive Lymphs % (Man) 0 % 03/03/22 03:54 Monocytes % (Manual) 2.0 % (0.0-7.3) 03/03/22 03:54 Eosinophils % (Manual) 0 % (0.0-4.3) 03/03/22 03:54 Basophils % (Manual) 0 % (0.0-1.8) 03/03/22 03:54 Metamyelocytes % 0 % 03/03/22 03:54 Myelocytes % 0 % 03/03/22 03:54 Promyelocytes % 0 % 03/03/22 03:54 Blast Cells % 0 % 03/03/22 03:54 Nucleated RBC % Not Reportable 03/03/22 03:54 Seg Neutrophils # 7.4 K/mm3 (1.8-7.7) 03/10/22 03:57 Seg Neutrophils # Man 18.5 K/mm3 (1.8-7.7) H 03/03/22 03:54 Band Neutrophils # 0.0 K/mm3 03/03/22 03:54 Lymphocytes # (Manual) 0.6 K/mm3 (1.2-5.4) L 03/03/22 03:54 Abs React Lymphs (Man) 0.0 K/mm3 03/03/22 03:54 Monocytes # (Manual) 0.4 K/mm3 (0.0-0.8) 03/03/22 03:54 Eosinophils # (Manual) 0.0 K/mm3 (0.0-0.4) 03/03/22 03:54 Basophils # (Manual) 0.0 K/mm3 (0.0-0.1) 03/03/22 03:54 Metamyelocytes # 0.0 K/mm3 03/03/22 03:54 Myelocytes # 0.0 K/mm3 03/03/22 03:54 Promyelocytes # 0.0 K/mm3 03/03/22 03:54 Blast Cells # 0.0 K/mm3 03/03/22 03:54 WBC Morphology Not Reportable 03/03/22 03:54 Hypersegmented Neuts Not Reportable 03/03/22 03:54 Hyposegmented Neuts Not Reportable 03/03/22 03:54 Hypogranular Neuts Not Reportable 03/03/22 03:54 Smudge Cells Not Reportable 03/03/22 03:54 Toxic Granulation Not Reportable 03/03/22 03:54 Toxic Vacuolation Not Reportable 03/03/22 03:54 Dohle Bodies Not Reportable 03/03/22 03:54 Pelger-Huet Anomaly Not Reportable 03/03/22 03:54 Lakshmi Rods Not Reportable 03/03/22 03:54 Platelet Estimate Consistent w auto 03/03/22 03:54 Clumped Platelets Not Reportable 03/03/22 03:54 Plt Clumps, EDTA Not Reportable 03/03/22 03:54 Large Platelets Not Reportable 03/03/22 03:54 Giant Platelets Not Reportable 03/03/22 03:54 Platelet Satelliting Not Reportable 03/03/22 03:54 Plt Morphology Comment Not Reportable 03/03/22 03:54 RBC Morphology Not Reportable 03/03/22 03:54 Dimorphic RBCs Not Reportable 03/03/22 03:54 Polychromasia Not Reportable 03/03/22 03:54 Hypochromasia Not Reportable 03/03/22 03:54 Poikilocytosis Not Reportable 03/03/22 03:54 Anisocytosis 1+ 03/03/22 03:54 Microcytosis Not Reportable 03/03/22 03:54 Macrocytosis Not Reportable 03/03/22 03:54 Spherocytes Not Reportable 03/03/22 03:54 Pappenheimer Bodies Not Reportable 03/03/22 03:54 Sickle Cells Not Reportable 03/03/22 03:54 Target Cells Not Reportable 03/03/22 03:54 Tear Drop Cells Not Reportable 03/03/22 03:54 Ovalocytes Not Reportable 03/03/22 03:54 Helmet Cells Not Reportable 03/03/22 03:54 [place] Bodies Not Reportable 03/03/22 03:54 [place] Rings Not Reportable 03/03/22 03:54 [place] Cells Not Reportable 03/03/22 03:54 Bite Cells Not Reportable 03/03/22 03:54 Crenated Cell Not Reportable 03/03/22 03:54 Elliptocytes Not Reportable 03/03/22 03:54 Acanthocytes (Spur) Not Reportable 03/03/22 03:54 Rouleaux Not Reportable 03/03/22 03:54 Hemoglobin C Crystals Not Reportable 03/03/22 03:54 Schistocytes Not Reportable 03/03/22 03:54 Malaria parasites Not Reportable 03/03/22 03:54 Cash Bodies Not Reportable 03/03/22 03:54 Hem Pathologist Commnt No 03/03/22 03:54 PT 16.9 Sec. (12.2-14.9) H 02/18/22 21:02 INR 1.20 (0.87-1.13) H 02/18/22 21:02 ABG pH 7.465 pH Units (7.350-7.450) H 03/10/22 04:50 ABG pCO2 45.3 mm Hg 03/10/22 04:50 ABG pO2 89.4 mm Hg (80.0-90.0) 03/10/22 04:50 ABG HCO3 31.9 mmol/L (20.0-26.0) H 03/10/22 04:50 ABG O2 Saturation 97.3 % (95.0-99.0) 03/10/22 04:50 ABG O2 Content 14.9 (0.0-44) 03/10/22 04:50 ABG Base Excess 7.3 mmol/L (-2.0-3.0) H 03/10/22 04:50 ABG Hemoglobin 11.0 gm/dl (14.0-18.0) L 03/10/22 04:50 ABG Carboxyhemoglobin 1.6 % (0.0-5.0) 03/10/22 04:50 ABG Methemoglobin 0.5 % (0.0-1.5) 03/10/22 04:50 Oxyhemoglobin 95.2 % (95.0-99.0) 03/10/22 04:50 FiO2 30 % 03/10/22 04:50 Sodium 137 mmol/L (137-145) 03/10/22 03:57 Potassium 3.4 mmol/L (3.6-5.0) L 03/10/22 03:57 Chloride 101.9 mmol/L (98-107) 03/10/22 03:57 Carbon Dioxide 30 mmol/L (22-30) 03/10/22 03:57 Anion Gap 9 mmol/L 03/10/22 03:57 BUN 18 mg/dL (9-20) 03/10/22 03:57 Creatinine 0.6 mg/dL (0.8-1.3) L 03/10/22 03:57 Estimated GFR > 60 ml/min 03/10/22 03:57 BUN/Creatinine Ratio 30 % 03/10/22 03:57 Glucose 95 mg/dL (75-100) 03/10/22 03:57 POC Glucose 92 mg/dL (70-105) 03/09/22 23:59 Lactic Acid 1.20 mmol/L (0.7-2.0) 02/18/22 21:02 Calcium 8.1 mg/dL (8.4-10.2) L 03/10/22 03:57 Phosphorus 2.00 mg/dL (2.5-4.5) L 03/06/22 04:17 Magnesium 1.90 mg/dL (1.7-2.3) 03/06/22 04:17 Total Bilirubin 0.30 mg/dL (0.1-1.2) 03/10/22 03:57 AST 17 units/L (5-40) 03/10/22 03:57 ALT 18 units/L (7-56) 03/10/22 03:57 Alkaline Phosphatase 89 units/L (35-129) 03/10/22 03:57 Ammonia 14.0 umol/L (25-60) L 02/18/22 23:22 Troponin T < 0.010 ng/mL (0.00-0.029) 02/18/22 21:02 Total Protein 6.6 g/dL (6.3-8.2) 03/10/22 03:57 Albumin 1.9 g/dL (3.9-5) L 03/10/22 03:57 Albumin/Globulin Ratio 0.4 % 03/10/22 03:57 Urine Color Dark yellow (Yellow) 02/18/22 Unknown Urine Turbidity Clear (Clear) 02/18/22 Unknown Urine pH 7.0 (5.0-7.0) 02/18/22 Unknown Ur Specific [place] 1.015 (1.003-1.030) 02/18/22 Unknown Urine Protein <15 mg/dl mg/dL (Negative) 02/18/22 Unknown Urine Glucose (UA) Negative mg/dL (Negative) 02/18/22 Unknown Urine Ketones Negative mg/dL (Negative) 02/18/22 Unknown Urine Blood Trace (Negative) 02/18/22 Unknown Urine Nitrite Negative (Negative) 02/18/22 Unknown Urine Bilirubin Negative (Negative) 02/18/22 Unknown Urine Urobilinogen < 2.0 mg/dL (<2.0) 02/18/22 Unknown Ur Leukocyte Esterase Negative (Negative) 02/18/22 Unknown Urine WBC (Auto) 2.0 /HPF (0.0-6.0) 02/18/22 Unknown Urine RBC (Auto) 9.0 /HPF (0.0-6.0) 02/18/22 Unknown Urine Mucus Few /HPF 02/18/22 Unknown Urine Opiates Screen Negative 02/18/22 Unknown Urine Methadone Screen Negative 02/18/22 Unknown Ur Barbiturates Screen Negative 02/18/22 Unknown Ur Phencyclidine Scrn Negative 02/18/22 Unknown Ur Amphetamines Screen Negative 02/18/22 Unknown U Benzodiazepines Scrn Negative 02/18/22 Unknown Urine Cocaine Screen Negative 02/18/22 Unknown U Marijuana (THC) Screen Negative 02/18/22 Unknown Drugs of Abuse Note Disclamer 02/18/22 Unknown Plasma/Serum Alcohol < 0.01 % (0-0.07) 02/18/22 21:02 Horowitz/IV: Voiding Method Indwelling Catheter Active Medications - Current Medications Current Medications: Generic Name Dose Route Start Last Admin Trade Name Freq PRN Reason Stop Dose Admin Acetaminophen 650 mg 03/03/22 09:00 Acetaminophen 325 Mg/10.15 Ml Oral Liqd Unit Dose FEEDTUBE Q4H PRN Pain, Mild (1-3); TEMP > 100.4 Albuterol 2.5 mg 02/23/22 16:00 03/10/22 08:23 Albuterol 2.5 Mg/3 Ml Nebu IH 2.5 mg Q4HRT LAZARUS Administration Famotidine 20 mg 02/25/22 10:00 03/10/22 10:59 Famotidine 20 Mg Tab FEEDTUBE 20 mg BID LAZARUS Administration Heparin Sodium (Porcine) 5,000 unit 02/19/22 06:00 03/10/22 06:00 Heparin 5,000 Unit/1 Ml Vial SUB-Q 5,000 unit Q8HR LAZARUS Administration Hydrophilic Ointment 1 applic 02/24/22 15:05 Lip Therapy Vaseline TP Q2HR PRN Dry Lips Levetiracetam 500 mg 02/25/22 22:00 03/10/22 10:59 Levetiracetam 500 Mg/5 Ml Oral Liqd FEEDTUBE 500 mg BID LAZARUS Administration Levothyroxine Sodium 25 mcg 02/26/22 06:00 03/10/22 06:00 Levothyroxine 25 Mcg Tab FEEDTUBE 25 mcg QAM@0600 LAZARUS Administration Magnesium Hydroxide 30 ml 02/19/22 02:02 Magnesium Hydroxide (Mom) Oral Liqd Udc PO Q4H PRN Constipation Morphine Sulfate 2 mg 02/19/22 02:02 Morphine 2 Mg/1 Ml Inj IV Q4H PRN Pain, Moderate (4-6) Morphine Sulfate 4 mg 02/19/22 02:02 Morphine 4 Mg/1 Ml Inj IV Q4H PRN Pain , Severe (7-10) Multi-Ingred Cream/Lotion/Oil/Oint 1 applic 02/24/22 15:05 Mineral Oil/Petrolatum, White Ophth Oint 3.5 Gm OU Q4HR PRN Dry Eye(s) Ondansetron HCl 4 mg 02/19/22 02:02 Ondansetron 4 Mg/2 Ml Inj IV Q8H PRN Nausea And Vomiting Potassium Chloride 40 meq 03/10/22 10:44 03/10/22 11:09 Potassium Chloride 20 Meq Packet FEEDTUBE 03/10/22 15:00 40 meq ONCE LAZARUS Administration Pravastatin Sodium 40 mg 02/25/22 22:00 03/09/22 21:16 Pravastatin 40 Mg Tab FEEDTUBE 40 mg QHS LAZARUS Administration Senna/Docusate Sodium 1 tab 02/24/22 22:00 03/10/22 10:59 Sennosides/Docusate Sodium 8.6/50 Mg Tab FEEDTUBE 1 tab BID LAZARUS Administration Sodium Chloride 10 ml 02/19/22 10:00 03/10/22 11:00 Sodium Chloride 0.9% 10 Ml Flush Syringe IV 10 ml BID LAZARUS Administration Sodium Chloride 10 ml 02/19/22 02:02 03/03/22 14:21 Sodium Chloride 0.9% 10 Ml Flush Syringe IV 10 ml PRN PRN Administration LINE FLUSH Nutrition/Malnutrition Assess - Dietary Evaluation Nutrition/Malnutrition Findings: Nutrition Notes Start: 02/19/22 14:29 Freq: Status: Active Protocol: Document 03/07/22 14:34 IVAN (Rec: 03/07/22 14:44 IVAN [email or web address]) Nutrition Notes Initial or Follow up Reassessment Current Diagnosis Hypertension,Respiratory Failure,Hyperlipidemia Other Pertinent Diagnosis Asp pneu, acute encephalopathy , seizure d/o, partial blindness Current Diet TF - Vital AF 1.2 at 50ml/hr Labs/Tests Reviewed Pertinent Medications Reviewed Height 5 ft 3 in Weight 63.2 kg [place] Body Weight (kg) 56.36 BMI 24.7 Weight change and time frame Unable to obtain current wt; bed scale not working - RN aware Weight Status Appropriate Subjective/Other Information Observed TF infusing at goal rate. Pt tolerating TF and remains on vent support. Pt been intubated since 02/24/22 via ETT. Trach/PEG placement pending. Percent of energy/protein needs met: 90% energy 100% pro Burn Absent Trauma Absent #1 Nutrition Diagnosis Inadequate oral intake Diagnosis Progress(for reassessment Continues documentation) Is patient on ventilator? Yes Is Patient Ambulatory and/or Out of Bed No REE-([facility]. Jeor-confined to bed) 1432.898 Calculation Used for Recommendations [facility] Additional Notes Pro needs 1.2-2g/k-126g/ day Fluid needs 1ml/kcal Nutrition Intervention Nutrition Support: Continue Vital AF 1.2 at 50ml/ hr with 75ml water flush q4h. Kcal 1,440 Protein (gm) 90 Carbohydrates (gm) 133 Fat (gm) 65 Fluid (mL) 973 Fiber (gm) 6 Goal #1 TF tolerance Goal #2 TF to meet at least 75% energy and pro needs Follow-Up By: 03/14/22 Additional Comments F/U: stable TF, trach/PEG placement, vent status, wt
--- NOTE | 2022-02-28 14:22 | Progress Note ---
Assessment and Plan 61 y/o male with abnormal CT of chest. 02/28/22: Will obtain CT neck, noncontrast to look for airway edema or other possible etiologies for failure. Needs ethics consult as given patient's mental state, inability to clear secretions appropriately, will need trach now that he has failed extubation. However he has no family and no POA so no one to give consent. Continue supportive measures. Guarded prognosis. 02/27/22: Continue improvement of oxygenation. Will drop PEEP down today with goal of being at 6 by in the morning. Will repeat CT scan to confirm improvement as no endobronchial lesion was seen, but also to make sure no parenchymal mass. There was no evidence of extrinsic compression during bronch. Likely extubation tomorrow post CT. 02/26/22: Repeat CXR now. Wean Vent as tolerated. Hopeful extubation soon. Mu cous removed. NO ENDOBRONCHIAL LESION/MASS 02/25/22: Bronch tentatively planned for tomorrow with therapeutic scope. Awaiting GI lab to give a time. NPO after midnight. Continue high PEEP 02/24/22: WIll attempt to bronch tomorrow morning. NPO after midnight. Just received word from GI lab they are not able to do bronch tomorrow. Cancel NPO order. Continue to feed patient. Repeat ABG in AM along with CXR. 02/21/22: No new pulm recs for today. Please obtain repeat CXR likely on Thursday. If patient happens to get worse, likely not a candidate for bipap given his weak cough and mental state and inability to communicate. If worsens and requires intubation, will bronch then under emergent circumstances if no POA or family is able to be located. Continue CPT. Will discuss with RT about NT suctioning. 02/20/22: Saw speech while on the floor. Would like patient to be NPO now. Discussed with nurse on floor and with IMS. Same recs pulm way as yesterday. Would benefit from bronch if able to get consent as this is not emergent. Continue CPT and q shift NT suctioning. Reviewed admission in the past and of note, patient was recently admitted last month and had a CXR done on the 29 of January that was normal. Given this patient's medical history and the history that I obtained from the nursing staff that [facility] he was eating solid foods, I suspect that this is aspiration, possibly of a foreign body (most likely food) with atelectasis of the right lower lobe. It is highly unlikely that a mass evolved in size in less than a months time and patient, besides age, has no real risk factors for lung carcinoma. Discussed with the nurse and unfortunately there is no identifiable person that is able to give consent. Bronchoscopy is needed in the case to evaluate to see if lung mass is there vs foreign body, but at this time not able to do. In the meanwhile will recommend the following. 1. Will order CPT with neb therapy 3x daily 2. Suggest maybe NT suctioning q shift. May use nasal trumpet, however do not leave this device in the patient 3. Aspiration precautions 4. Consider speech eval to assess swallowing. Will continue to follow. CCT 31 minutes. Subjective Date of service: 02/28/22 Interval history: Patient failed extubation attempt this am, almost immediately. Developed stridor and dropped sats. Re-intubated by Anesthesia and appreciate their help. ET was up high so had to use bronchoscope to advance it with success. Despite ET tube being up very high, patient was satting very well. Remains sedated on diprovan. Objective Vital Signs - 12hr 02/28/22 02/28/22 02/28/22 03:01 04:00 04:01 Temperature 98.6 F Pulse Rate 91 H 84 99 H Pulse Rate [ 90 From Monitor] Pulse Rate [ 91 H Posterior Bilateral Throughout] Respiratory 19 18 19 Rate Respiratory 15 Rate [Posterior Bilateral Throughout] Blood Pressure 110/60 121/65 121/65 O2 Sat by Pulse 96 98 97 Oximetry 02/28/22 02/28/22 02/28/22 05:00 06:00 07:00 Temperature Pulse Rate 85 81 87 Pulse Rate [ From Monitor] Pulse Rate [ Posterior Bilateral Throughout] Respiratory 16 14 16 Rate Respiratory Rate [Posterior Bilateral Throughout] Blood Pressure 100/48 108/52 103/54 O2 Sat by Pulse 97 97 98 Oximetry 02/28/22 02/28/22 02/28/22 07:15 07:55 08:00 Temperature 98.2 F Pulse Rate 85 84 Pulse Rate [ 92 H From Monitor] Pulse Rate [ 88 Posterior Bilateral Throughout] Respiratory 17 Rate Respiratory 15 Rate [Posterior Bilateral Throughout] Blood Pressure 103/54 O2 Sat by Pulse 99 96 Oximetry 02/28/22 02/28/22 02/28/22 08:01 08:30 09:00 Temperature Pulse Rate 86 89 Pulse Rate [ From Monitor] Pulse Rate [ Posterior Bilateral Throughout] Respiratory 15 18 Rate Respiratory Rate [Posterior Bilateral Throughout] Blood Pressure 98/50 104/57 O2 Sat by Pulse 95 99 96 Oximetry 02/28/22 02/28/22 02/28/22 09:50 10:01 10:15 Temperature Pulse Rate 88 Pulse Rate [ From Monitor] Pulse Rate [ 120 H Posterior Bilateral Throughout] Respiratory 19 Rate Respiratory 32 H Rate [Posterior Bilateral Throughout] Blood Pressure 89/66 O2 Sat by Pulse 77 L 98 Oximetry 02/28/22 02/28/22 02/28/22 11:00 11:01 12:00 Temperature 97.2 F L Pulse Rate 112 H 109 H 101 H Pulse Rate [ 101 H From Monitor] Pulse Rate [ 102 H Posterior Bilateral Throughout] Respiratory 16 16 Rate Respiratory 14 Rate [Posterior Bilateral Throughout] Blood Pressure 129/72 146/74 90/45 O2 Sat by Pulse 93 99 94 Oximetry 02/28/22 02/28/22 13:00 14:00 Temperature Pulse Rate 91 H 75 Pulse Rate [ From Monitor] Pulse Rate [ Posterior Bilateral Throughout] Respiratory 16 15 Rate Respiratory Rate [Posterior Bilateral Throughout] Blood Pressure 88/53 95/52 O2 Sat by Pulse 96 99 Oximetry Constitutional: other (on NRB) Eyes: non-icteric ENT: oropharynx moist Neck: supple Effort: normal Ascultation: Bilateral: diminished breath sounds, rhonchi Cardiovascular: regular rate and rhythm Gastrointestinal: normoactive bowel sounds, soft, non-tender (on o2 vest in place) Integumentary: normal Extremities: no cyanosis Neurologic: other (awake) CBC and BMP: 02/28/22 03:38 02/27/22 04:19 ABG, PT/INR, D-dimer: ABG ABG pH 7.488 pH Units (7.350-7.450) H 02/28/22 09:30 ABG pCO2 46.7 mm Hg 02/28/22 09:30 ABG pO2 87.5 mm Hg (80.0-90.0) 02/28/22 09:30 ABG O2 Saturation 97.2 % (95.0-99.0) 02/28/22 09:30 PT/INR, D-dimer PT 16.9 Sec. (12.2-14.9) H 02/18/22 21:02 INR 1.20 (0.87-1.13) H 02/18/22 21:02 Abnormal lab findings: Abnormal Labs 02/18/22 02/18/22 02/18/22 19:34 21:02 21:02 WBC RBC Hgb Hct MCV 101 H MCH 34 H RDW 16.1 H Lymph % (Auto) [place] % (Auto) 12.4 H Lymph # (Auto) [place] # (Auto) 1.2 H Seg Neutrophils % 73.0 H Seg Neutrophils # PT 16.9 H INR 1.20 H ABG pH ABG pO2 ABG HCO3 ABG O2 Saturation ABG Base Excess ABG Hemoglobin Oxyhemoglobin Sodium Potassium Chloride Carbon Dioxide BUN Creatinine Glucose POC Glucose 116 H Calcium Phosphorus AST ALT Ammonia Albumin 02/18/22 02/18/22 02/18/22 21:02 22:45 23:22 WBC RBC Hgb Hct MCV MCH RDW Lymph % (Auto) [place] % (Auto) Lymph # (Auto) [place] # (Auto) Seg Neutrophils % Seg Neutrophils # PT INR ABG pH ABG pO2 55.6 L ABG HCO3 28.4 H ABG O2 Saturation 91.5 L ABG Base Excess 3.8 H ABG Hemoglobin 13.2 L Oxyhemoglobin 89.6 L Sodium Potassium 5.1 H Chloride Carbon Dioxide BUN Creatinine Glucose 102 H POC Glucose Calcium Phosphorus AST 48 H ALT 64 H Ammonia 14.0 L Albumin 2.7 L 02/20/22 02/20/22 02/23/22 04:59 04:59 06:29 WBC 11.4 H RBC Hgb Hct MCV 103 H MCH 33 H RDW 16.5 H Lymph % (Auto) 5.5 L [place] % (Auto) 12.1 H Lymph # (Auto) 0.6 L [place] # (Auto) 1.4 H Seg Neutrophils % 81.4 H Seg Neutrophils # 9.2 H PT INR ABG pH ABG pO2 ABG HCO3 ABG O2 Saturation ABG Base Excess ABG Hemoglobin Oxyhemoglobin Sodium Potassium Chloride Carbon Dioxide BUN Creatinine Glucose POC Glucose 113 H Calcium 8.2 L Phosphorus AST ALT Ammonia Albumin 02/23/22 02/23/22 02/24/22 11:22 16:10 00:02 WBC RBC Hgb Hct MCV MCH RDW Lymph % (Auto) [place] % (Auto) Lymph # (Auto) [place] # (Auto) Seg Neutrophils % Seg Neutrophils # PT INR ABG pH ABG pO2 ABG HCO3 ABG O2 Saturation ABG Base Excess ABG Hemoglobin Oxyhemoglobin Sodium Potassium Chloride Carbon Dioxide BUN Creatinine Glucose POC Glucose 108 H 115 H 109 H Calcium Phosphorus AST ALT Ammonia Albumin 02/24/22 02/24/22 02/24/22 11:05 11:05 13:20 WBC RBC 3.55 L Hgb Hct MCV 100 H MCH 34 H RDW 15.6 H Lymph % (Auto) [place] % (Auto) Lymph # (Auto) [place] # (Auto) Seg Neutrophils % Seg Neutrophils # PT INR ABG pH ABG pO2 ABG HCO3 ABG O2 Saturation ABG Base Excess ABG Hemoglobin Oxyhemoglobin Sodium 146 H Potassium 3.2 L D Chloride 108.4 H Carbon Dioxide BUN Creatinine 0.5 L Glucose POC Glucose 111 H Calcium 7.9 L Phosphorus 2.20 L AST ALT Ammonia Albumin 02/24/22 02/24/22 02/24/22 16:30 17:03 20:25 WBC RBC Hgb Hct MCV MCH RDW Lymph % (Auto) [place] % (Auto) Lymph # (Auto) [place] # (Auto) Seg Neutrophils % Seg Neutrophils # PT INR ABG pH 7.319 L ABG pO2 65.3 L ABG HCO3 31.3 H ABG O2 Saturation 92.2 L ABG Base Excess 3.8 H ABG Hemoglobin 12.0 L Oxyhemoglobin 90.3 L Sodium Potassium Chloride 107.9 H Carbon Dioxide BUN 8 L Creatinine 0.4 L Glucose POC Glucose 108 H Calcium 7.6 L Phosphorus 4.60 H D AST ALT Ammonia Albumin 02/25/22 02/25/22 02/25/22 04:12 04:12 05:05 WBC RBC 3.07 L Hgb 10.2 L Hct 31.5 L MCV 103 H MCH 33 H RDW 15.6 H Lymph % (Auto) [place] % (Auto) Lymph # (Auto) [place] # (Auto) Seg Neutrophils % Seg Neutrophils # PT INR ABG pH ABG pO2 ABG HCO3 32.5 H ABG O2 Saturation ABG Base Excess 5.6 H ABG Hemoglobin 10.8 L Oxyhemoglobin 94.8 L Sodium Potassium 3.5 L Chloride 107.7 H Carbon Dioxide BUN Creatinine 0.5 L Glucose POC Glucose Calcium 7.0 L Phosphorus AST ALT Ammonia Albumin 02/25/22 02/25/22 02/26/22 12:05 18:33 00:07 WBC RBC Hgb Hct MCV MCH RDW Lymph % (Auto) [place] % (Auto) Lymph # (Auto) [place] # (Auto) Seg Neutrophils % Seg Neutrophils # PT INR ABG pH ABG pO2 ABG HCO3 ABG O2 Saturation ABG Base Excess ABG Hemoglobin Oxyhemoglobin Sodium Potassium Chloride Carbon Dioxide BUN Creatinine Glucose POC Glucose 127 H 125 H 114 H Calcium Phosphorus AST ALT Ammonia Albumin 02/26/22 02/26/22 02/26/22 03:30 04:42 11:34 WBC RBC Hgb Hct MCV MCH RDW Lymph % (Auto) [place] % (Auto) Lymph # (Auto) [place] # (Auto) Seg Neutrophils % Seg Neutrophils # PT INR ABG pH ABG pO2 143.2 H ABG HCO3 33.2 H ABG O2 Saturation ABG Base Excess 6.5 H ABG Hemoglobin 9.4 L Oxyhemoglobin Sodium Potassium Chloride Carbon Dioxide 32 H BUN Creatinine 0.7 L Glucose POC Glucose 114 H Calcium 8.0 L Phosphorus AST ALT Ammonia Albumin 02/26/22 02/26/22 02/27/22 18:17 23:37 04:19 WBC 13.7 H RBC 2.78 L Hgb 9.3 L Hct 28.5 L MCV 103 H MCH 33 H RDW 16.3 H Lymph % (Auto) [place] % (Auto) Lymph # (Auto) [place] # (Auto) Seg Neutrophils % Seg Neutrophils # PT INR ABG pH ABG pO2 ABG HCO3 ABG O2 Saturation ABG Base Excess ABG Hemoglobin Oxyhemoglobin Sodium Potassium Chloride Carbon Dioxide BUN Creatinine Glucose POC Glucose 111 H 117 H Calcium Phosphorus AST ALT Ammonia Albumin 02/27/22 02/27/22 02/27/22 04:19 04:35 05:27 WBC RBC Hgb Hct MCV MCH RDW Lymph % (Auto) [place] % (Auto) Lymph # (Auto) [place] # (Auto) Seg Neutrophils % Seg Neutrophils # PT INR ABG pH ABG pO2 96.3 H ABG HCO3 34.9 H ABG O2 Saturation ABG Base Excess 8.1 H ABG Hemoglobin Oxyhemoglobin Sodium Potassium Chloride Carbon Dioxide 31 H BUN Creatinine 0.6 L Glucose 107 H POC Glucose 133 H Calcium 7.8 L Phosphorus AST ALT Ammonia Albumin 02/27/22 02/27/2222 11:15 23:35 03:38 WBC 13.3 H RBC 3.05 L Hgb 10.2 L Hct 30.7 L MCV 101 H MCH 33 H RDW 16.1 H Lymph % (Auto) [place] % (Auto) Lymph # (Auto) [place] # (Auto) Seg Neutrophils % Seg Neutrophils # PT INR ABG pH ABG pO2 ABG HCO3 ABG O2 Saturation ABG Base Excess ABG Hemoglobin Oxyhemoglobin Sodium Potassium Chloride Carbon Dioxide BUN Creatinine Glucose POC Glucose 129 H 122 H Calcium Phosphorus AST ALT Ammonia Albumin 02/28/22 02/28/22 02/28/22 04:50 05:30 09:30 WBC RBC Hgb Hct MCV MCH RDW Lymph % (Auto) [place] % (Auto) Lymph # (Auto) [place] # (Auto) Seg Neutrophils % Seg Neutrophils # PT INR ABG pH 7.451 H 7.488 H ABG pO2 77.0 L ABG HCO3 37.1 H 34.6 H ABG O2 Saturation ABG Base Excess 11.5 H 10.1 H ABG Hemoglobin 10.1 L 10.0 L Oxyhemoglobin Sodium Potassium Chloride Carbon Dioxide BUN Creatinine Glucose POC Glucose 121 H Calcium Phosphorus AST ALT Ammonia Albumin 02/28/22 11:36 WBC RBC Hgb Hct MCV MCH RDW Lymph % (Auto) [place] % (Auto) Lymph # (Auto) [place] # (Auto) Seg Neutrophils % Seg Neutrophils # PT INR ABG pH ABG pO2 ABG HCO3 ABG O2 Saturation ABG Base Excess ABG Hemoglobin Oxyhemoglobin Sodium Potassium Chloride Carbon Dioxide BUN Creatinine Glucose POC Glucose 112 H Calcium Phosphorus AST ALT Ammonia Albumin
[2022-02-28] MEDS ORDERED: NORepinephrine/NS 8 MG-250 ML 8 MG/250 ML INFUS..BTL IV SCH ×2 (16:00→22:52)
--- NOTE | 2022-02-28 17:45 | Cat Scan Report ---
CT NECK WITHOUT CONTRAST HISTORY: Difficulty with intubation COMPARISON: None. TECHNIQUE: Routine CT of the neck is performed following intravenous contrast. All CT scans at this [facility] are performed using CT dose reduction for ALARA by means of automated exposure control. CONTRAST: 100 mL Omnipaque 300 FINDINGS: Skull Base: No significant abnormality. Parotid, Carotid, Retropharyngeal, Prevertebral, Pharyngeal Mucosal, and Senior Network [employer] Spaces: No abnorm al mass, enhancing lesion or other significant abnormality. Airway: Endotracheal tube in place. Nasogastric tube also in place. No appreciable significant airway narrowing or airway edema beyond the small amount that would be expected following intubation. Lymphatics: No lymphadenopathy. Vasculature: No significant abnormality. Osseous Structures: No significant abnormality Additional findings: Pulmonary edema with bilateral pleural effusions in the lungs. IMPRESSION: 1. No appreciable abnormality in the airway. Signer Name: Ranjeet Kyle MD Signed: 02/28/2022 5:40 PM Workstation Name: [id number]
[2022-02-28] MEDS: PRAVASTATIN 40 MG TAB FEEDTUBE SCH (21:53)
[2022-02-28] MEDS ORDERED: SODIUM CHLORIDE 0.9% 100 ML IVPB IV ONE (22:53)
[2022-02-28] MEDS ORDERED: SODIUM CHLORIDE 0.9% 1000 ML 1,000 ML IV ONE (23:00)
[2022-02-28] MEDS: SODIUM CHLORIDE 0.9% 1000 ML 1,000 ML IV SCH (23:46)
[2022-03-01] MEDS: ALBUTEROL 2.5 MG/3 ML NEBU IH SCH ×6 (04:01→23:42)
[2022-03-01 05:13] LABS: Blood Urea Nitrogen 9 mg/dL (9-20); Calcium 7.9 mg/dL (8.4-10.2); Hemolysis Index 2
[2022-03-01 05:22] LABS: BUN/Creatinine Ratio 15
[2022-03-01 05:56] LABS: Hematocrit 28.6 % (35.5-45.6); Hemoglobin 9.5 gm/dl (11.8-15.2); Mean Corpuscular HGB Conc 33 % (32-34); Mean Corpuscular Volume 101 fl (84-94); Platelet Count 343 K/mm3 (140-440); Red Blood Count 2.85 M/mm3 (3.65-5.03); Red Cell Distribution Width 15.7 % (13.2-15.2)
[2022-03-01] MEDS: HEPARIN 5,000 UNIT/1 ML VIAL SUB-Q SCH ×3 (06:33→21:04)
[2022-03-01] MEDS: LEVOTHYROXINE 25 MCG TAB FEEDTUBE SCH (06:33)
--- NOTE | 2022-03-01 06:45 | XRay Report ---
CHEST 1 VIEW 03/01/2022 5:35 AM INDICATION / CLINICAL INFORMATION: follow up respiratory failure. COMPARISON: 02/28/2022 FINDINGS: SUPPORT DEVICES: ET tube and NG tube are satisfactory in position HEART / MEDIASTINUM: No significant abnormality. LUNGS / PLEURA: Diffuse bilateral pulmonary opacities with bilateral effusions No pneumothorax. Signer Name: Buddy Haley MD Signed: 03/01/2022 6:41 AM Workstation Name: [id number]
[2022-03-01] MEDS: MIDODRINE 10 MG TAB PO SCH ×3 (07:33→17:00)
[2022-03-01] MEDS: SODIUM CHLORIDE 0.9% 1000 ML 1,000 ML IV SCH (07:33)
[2022-03-01] MEDS: levETIRAcetam 500 MG/5 ML ORAL LIQD FEEDTUBE SCH ×2 (09:00→21:04)
[2022-03-01] MEDS ORDERED: SODIUM CHLORIDE 0.9% 1000 ML 1,000 ML IV SCH (09:00)
[2022-03-01] MEDS: FAMOTIDINE 20 MG TAB FEEDTUBE SCH ×2 (09:00→21:04)
[2022-03-01] MEDS: SENNOSIDES/DOCUSATE SODIUM 8.6/50 MG TAB FEEDTUBE SCH ×2 (09:00→21:04)
[2022-03-01] MEDS ORDERED: LACTATED RINGERS 1,000 ML IV ONE ×2 (11:04)
--- NOTE | 2022-03-01 11:10 | Progress Note ---
Assessment and Plan 61 y/o male with abnormal CT of chest. 03/01/22: Patient is having increased urine output. THis could be the cause of new onset hypotension. Will bolus 2 more liters of LR now and reassess. If this continues may need to work up for SIADH including repeat head CT. Follow up ethics review of case. Will need trach for ventilator liberation. Overall prognosis remains guarded. 02/28/22: Will obtain CT neck, noncontrast to look for airway edema or other possible etiologies for failure. Needs ethics consult as given patient's mental state, inability to clear secretions appropriately, will need trach now that he has failed extubation. However he has no family and no POA so no one to give consent. Continue supportive measures. Guarded prognosis. 02/27/22: Continue improvement of oxygenation. Will drop PEEP down today with goal of being at 6 by in the morning. Will repeat CT scan to confirm improvement as no endobronchial lesion was seen, but also to make sure no parenchymal mass. There was no evidence of extrinsic compression during bronch. Likely extubation tomorrow post CT. 02/26/22: Repeat CXR now. Wean Vent as tolerated. Hopeful extubation soon. Mucous removed. NO ENDOBRONCHIAL LESION/MASS 02/25/22: Bronch tentatively planned for tomorrow with therapeutic scope. Awaiting GI lab to give a time. NPO after midnight. Continue high PEEP 02/24/22: WIll attempt to bronch tomorrow morning. NPO after midnight. Just received word from GI lab they are not able to do bronch tomorrow. Cancel NPO order. Continue to feed patient. Repeat ABG in AM along with CXR. 02/21/22: No new pulm recs for today. Please obtain repeat CXR likely on Thursday. If patient happens to get worse, likely not a candidate for bipap given his weak cough and mental state and inability to communicate. If worsens and requires intubation, will bronch then under emergent circumstances if no POA or family is able to be located. Continue CPT. Will discuss with RT about NT suctioning. 02/20/22: Saw speech while on the floor. Would like patient to be NPO now. Discussed with nurse on floor and with IMS. Same recs pulm way as yesterday. Would benefit from bronch if able to get consent as this is not emergent. Continue CPT and q shift NT suctioning. Reviewed admission in the past and of note, patient was recently admitted last month and had a CXR done on the 29 of January that was normal. Given this patient's medical history and the history that I obtained from the nursing staff that at the [place] he was eating solid foods, I suspect that this is aspiration, possibly of a foreign body (most likely food) with atelectasis of the right lower lobe. It is highly unlikely that a mass evolved in size in less than a months time and patient, besides age, has no real risk factors for lung carcinoma. Discussed with the nurse and unfortunately there is no identifiable person that is able to give consent. Bronchoscopy is needed in the case to evaluate to see if lung mass is there vs foreign body, but at this time not able to do. In the meanwhile will recommend the following. 1. Will order CPT with neb therapy 3x daily 2. Suggest maybe NT suctioning q shift. May use nasal trumpet, however do not leave this device in the patient 3. Aspiration precautions 4. Consider speech eval to assess swallowing. Will continue to follow. CCT 31 minutes. Subjective Date of service: 03/01/22 Interval history: Patient became hypotensive overnight. started on levophed then stopped, now back on again at 1. Unresponsive on vent. Minimal settings. I dropped PEEP to 6 this am. Objective Vital Signs - 12hr 02/28/22 02/28/22 02/28/22 23:15 23:28 23:30 Temperature Pulse Rate 79 82 Pulse Rate [ Bilateral Throughout] Pulse Rate [ From Monitor] Pulse Rate [ 98 H Posterior Bilateral Throughout] Respiratory 14 17 Rate Respiratory Rate [Bilateral Throughout] Respiratory 18 Rate [Posterior Bilateral Throughout] Blood Pressure 108/55 96/46 O2 Sat by Pulse 99 99 Oximetry 02/28/22 02/28/22 02/28/22 23:35 23:43 23:45 Temperature Pulse Rate 79 91 H 84 Pulse Rate [ Bilateral Throughout] Pulse Rate [ From Monitor] Pulse Rate [ Posterior Bilateral Throughout] Respiratory 14 14 Rate Respiratory Rate [Bilateral Throughout] Respiratory Rate [Posterior Bilateral Throughout] Blood Pressure 96/46 96/46 111/56 O2 Sat by Pulse 96 97 97 Oximetry 03/01/22 03/01/22 03/01/22 00:00 00:15 00:30 Temperature 98.1 F Pulse Rate 78 80 77 Pulse Rate [ Bilateral Throughout] Pulse Rate [ 71 From Monitor] Pulse Rate [ Posterior Bilateral Throughout] Respiratory 14 14 15 Rate Respiratory Rate [Bilateral Throughout] Respiratory Rate [Posterior Bilateral Throughout] Blood Pressure 103/52 103/52 110/53 O2 Sat by Pulse 97 96 96 Oximetry 03/01/22 03/01/22 03/01/22 00:45 01:00 01:15 Temperature Pulse Rate 75 75 79 Pulse Rate [ Bilateral Throughout] Pulse Rate [ From Monitor] Pulse Rate [ Posterior Bilateral Throughout] Respiratory 14 14 15 Rate Respiratory Rate [Bilateral Throughout] Respiratory Rate [Posterior Bilateral Throughout] Blood Pressure 110/53 100/47 100/47 O2 Sat by Pulse 96 97 98 Oximetry 03/01/22 03/01/22 03/01/22 01:30 01:45 02:00 Temperature Pulse Rate 77 78 76 Pulse Rate [ Bilateral Throughout] Pulse Rate [ From Monitor] Pulse Rate [ Posterior Bilateral Throughout] Respiratory 15 15 14 Rate Respiratory Rate [Bilateral Throughout] Respiratory Rate [Posterior Bilateral Throughout] Blood Pressure 100/46 100/46 98/43 O2 Sat by Pulse 97 96 96 Oximetry 03/01/22 03/01/22 03/01/22 02:15 02:31 02:45 Temperature Pulse Rate 74 75 70 Pulse Rate [ Bilateral Throughout] Pulse Rate [ From Monitor] Pulse Rate [ Posterior Bilateral Throughout] Respiratory 14 14 15 Rate Respiratory Rate [Bilateral Throughout] Respiratory Rate [Posterior Bilateral Throughout] Blood Pressure 98/43 86/28 105/38 O2 Sat by Pulse 95 95 96 Oximetry 03/01/22 03/01/22 03/01/22 03:01 03:15 03:30 Temperature Pulse Rate 73 75 75 Pulse Rate [ Bilateral Throughout] Pulse Rate [ From Monitor] Pulse Rate [ Posterior Bilateral Throughout] Respiratory 13 12 16 Rate Respiratory Rate [Bilateral Throughout] Respiratory Rate [Posterior Bilateral Throughout] Blood Pressure 120/36 116/30 108/48 O2 Sat by Pulse 96 94 93 Oximetry 03/01/22 03/01/22 03/01/22 03:45 04:00 04:15 Temperature 98.3 F Pulse Rate 74 76 76 Pulse Rate [ Bilateral Throughout] Pulse Rate [ 88 From Monitor] Pulse Rate [ 77 Posterior Bilateral Throughout] Respiratory 14 14 11 L Rate Respiratory Rate [Bilateral Throughout] Respiratory 13 Rate [Posterior Bilateral Throughout] Blood Pressure 104/46 111/47 109/48 O2 Sat by Pulse 93 94 97 Oximetry 03/01/22 03/01/22 03/01/22 04:30 04:45 05:00 Temperature Pulse Rate 84 88 84 Pulse Rate [ Bilateral Throughout] Pulse Rate [ From Monitor] Pulse Rate [ Posterior Bilateral Throughout] Respiratory 18 14 13 Rate Respiratory Rate [Bilateral Throughout] Respiratory Rate [Posterior Bilateral Throughout] Blood Pressure 108/58 101/55 109/51 O2 Sat by Pulse 98 95 95 Oximetry 03/01/22 03/01/22 03/01/22 05:15 05:30 05:45 Temperature Pulse Rate 84 81 78 Pulse Rate [ Bilateral Throughout] Pulse Rate [ From Monitor] Pulse Rate [ Posterior Bilateral Throughout] Respiratory 14 13 15 Rate Respiratory Rate [Bilateral Throughout] Respiratory Rate [Posterior Bilateral Throughout] Blood Pressure 114/53 109/52 116/54 O2 Sat by Pulse 94 95 95 Oximetry 03/01/22 03/01/22 03/01/22 06:00 06:15 06:30 Temperature Pulse Rate 83 97 H 86 Pulse Rate [ Bilateral Throughout] Pulse Rate [ From Monitor] Pulse Rate [ Posterior Bilateral Throughout] Respiratory 14 15 18 Rate Respiratory Rate [Bilateral Throughout] Respiratory Rate [Posterior Bilateral Throughout] Blood Pressure 101/49 101/49 111/56 O2 Sat by Pulse 95 96 97 Oximetry 03/01/22 03/01/22 03/01/22 06:45 07:00 07:15 Temperature Pulse Rate 84 81 79 Pulse Rate [ Bilateral Throughout] Pulse Rate [ From Monitor] Pulse Rate [ Posterior Bilateral Throughout] Respiratory 15 16 14 Rate Respiratory Rate [Bilateral Throughout] Respiratory Rate [Posterior Bilateral Throughout] Blood Pressure 111/50 104/58 111/59 O2 Sat by Pulse 97 97 98 Oximetry 03/01/22 03/01/22 03/01/22 07:30 07:45 08:00 Temperature 99.2 F Pulse Rate 78 80 82 Pulse Rate [ 765 H Bilateral Throughout] Pulse Rate [ 80 From Monitor] Pulse Rate [ 78 Posterior Bilateral Throughout] Respiratory 14 12 13 Rate Respiratory 14 Rate [Bilateral Throughout] Respiratory 16 Rate [Posterior Bilateral Throughout] Blood Pressure 106/55 106/46 109/46 O2 Sat by Pulse 98 97 98 Oximetry 03/01/22 03/01/22 03/01/22 08:15 08:30 08:45 Temperature Pulse Rate 83 80 80 Pulse Rate [ Bilateral Throughout] Pulse Rate [ From Monitor] Pulse Rate [ Posterior Bilateral Throughout] Respiratory 14 14 14 Rate Respiratory Rate [Bilateral Throughout] Respiratory Rate [Posterior Bilateral Throughout] Blood Pressure 110/55 110/52 106/46 O2 Sat by Pulse 99 98 98 Oximetry 03/01/22 03/01/22 03/01/22 09:00 09:15 09:30 Temperature Pulse Rate 82 81 77 Pulse Rate [ Bilateral Throughout] Pulse Rate [ From Monitor] Pulse Rate [ Posterior Bilateral Throughout] Respiratory 14 14 14 Rate Respiratory Rate [Bilateral Throughout] Respiratory Rate [Posterior Bilateral Throughout] Blood Pressure 107/52 95/47 94/44 O2 Sat by Pulse 98 98 97 Oximetry 03/01/22 03/01/22 03/01/22 09:45 10:00 10:15 Temperature Pulse Rate 78 78 93 H Pulse Rate [ Bilateral Throughout] Pulse Rate [ From Monitor] Pulse Rate [ Posterior Bilateral Throughout] Respiratory 14 14 13 Rate Respiratory Rate [Bilateral Throughout] Respiratory Rate [Posterior Bilateral Throughout] Blood Pressure 94/42 87/40 92/46 O2 Sat by Pulse 97 98 98 Oximetry 03/01/22 10:31 Temperature Pulse Rate 77 Pulse Rate [ Bilateral Throughout] Pulse Rate [ From Monitor] Pulse Rate [ Posterior Bilateral Throughout] Respiratory 14 Rate Respiratory Rate [Bilateral Throughout] Respiratory Rate [Posterior Bilateral Throughout] Blood Pressure 112/57 O2 Sat by Pulse 96 Oximetry Constitutional: other (on NRB) Eyes: non-icteric ENT: oropharynx moist Neck: supple Effort: normal Ascultation: Bilateral: diminished breath sounds, rhonchi Cardiovascular: regular rate and rhythm Gastrointestinal: normoactive bowel sounds, soft, non-tender (on o2 vest in place) Integumentary: normal Extremities: no cyanosis Neurologic: other (awake) CBC and BMP: 03/01/22 04:27 03/01/22 04:27 ABG, PT/INR, D-dimer: ABG ABG pH 7.488 pH Units (7.350-7.450) H 02/28/22 09:30 ABG pCO2 46.7 mm Hg 02/28/22 09:30 ABG pO2 87.5 mm Hg (80.0-90.0) 02/28/22 09:30 ABG O2 Saturation 97.2 % (95.0-99.0) 02/28/22 09:30 PT/INR, D-dimer PT 16.9 Sec. (12.2-14.9) H 02/18/22 21:02 INR 1.20 (0.87-1.13) H 02/18/22 21:02 Abnormal lab findings: Abnormal Labs 02/18/22 02/18/22 02/18/22 19:34 21:02 21:02 WBC RBC Hgb Hct MCV 101 H MCH 34 H RDW 16.1 H Lymph % (Auto) Alfalfa % (Auto) 12.4 H Lymph # (Auto) Alfalfa # (Auto) 1.2 H Seg Neutrophils % 73.0 H Seg Neutrophils # PT 16.9 H INR 1.20 H ABG pH ABG pO2 ABG HCO3 ABG O2 Saturation ABG Base Excess ABG Hemoglobin Oxyhemoglobin Sodium Potassium Chloride Carbon Dioxide BUN Creatinine Glucose POC Glucose 116 H Calcium Phosphorus AST ALT Ammonia Albumin 02/18/22 02/18/22 02/18/22 21:02 22:45 23:22 WBC RBC Hgb Hct MCV MCH RDW Lymph % (Auto) Alfalfa % (Auto) Lymph # (Auto) Alfalfa # (Auto) Seg Neutrophils % Seg Neutrophils # PT INR ABG pH ABG pO2 55.6 L ABG HCO3 28.4 H ABG O2 Saturation 91.5 L ABG Base Excess 3.8 H ABG Hemoglobin 13.2 L Oxyhemoglobin 89.6 L Sodium Potassium 5.1 H Chloride Carbon Dioxide BUN Creatinine Glucose 102 H POC Glucose Calcium Phosphorus AST 48 H ALT 64 H Ammonia 14.0 L Albumin 2.7 L 02/20/22 02/20/22 02/23/22 04:59 04:59 06:29 WBC 11.4 H RBC Hgb Hct MCV 103 H MCH 33 H RDW 16.5 H Lymph % (Auto) 5.5 L Alfalfa % (Auto) 12.1 H Lymph # (Auto) 0.6 L Alfalfa # (Auto) 1.4 H Seg Neutrophils % 81.4 H Seg Neutrophils # 9.2 H PT INR ABG pH ABG pO2 ABG HCO3 ABG O2 Saturation ABG Base Excess ABG Hemoglobin Oxyhemoglobin Sodium Potassium Chloride Carbon Dioxide BUN Creatinine Glucose POC Glucose 113 H Calcium 8.2 L Phosphorus AST ALT Ammonia Albumin 02/23/22 02/23/22 02/24/22 11:22 16:10 00:02 WBC RBC Hgb Hct MCV MCH RDW Lymph % (Auto) Alfalfa % (Auto) Lymph # (Auto) Alfalfa # (Auto) Seg Neutrophils % Seg Neutrophils # PT INR ABG pH ABG pO2 ABG HCO3 ABG O2 Saturation ABG Base Excess ABG Hemoglobin Oxyhemoglobin Sodium Potassium Chloride Carbon Dioxide BUN Creatinine Glucose POC Glucose 108 H 115 H 109 H Calcium Phosphorus AST ALT Ammonia Albumin 02/24/22 02/24/22 02/24/22 11:05 11:05 13:20 WBC RBC 3.55 L Hgb Hct MCV 100 H MCH 34 H RDW 15.6 H Lymph % (Auto) Alfalfa % (Auto) Lymph # (Auto) Alfalfa # (Auto) Seg Neutrophils % Seg Neutrophils # PT INR ABG pH ABG pO2 ABG HCO3 ABG O2 Saturation ABG Base Excess ABG Hemoglobin Oxyhemoglobin Sodium 146 H Potassium 3.2 L D Chloride 108.4 H Carbon Dioxide BUN Creatinine 0.5 L Glucose POC Glucose 111 H Calcium 7.9 L Phosphorus 2.20 L AST ALT Ammonia Albumin 02/24/22 02/24/22 02/24/22 16:30 17:03 20:25 WBC RBC Hgb Hct MCV MCH RDW Lymph % (Auto) Alfalfa % (Auto) Lymph # (Auto) Alfalfa # (Auto) Seg Neutrophils % Seg Neutrophils # PT INR ABG pH 7.319 L ABG pO2 65.3 L ABG HCO3 31.3 H ABG O2 Saturation 92.2 L ABG Base Excess 3.8 H ABG Hemoglobin 12.0 L Oxyhemoglobin 90.3 L Sodium Potassium Chloride 107.9 H Carbon Dioxide BUN 8 L Creatinine 0.4 L Glucose POC Glucose 108 H Calcium 7.6 L Phosphorus 4.60 H D AST ALT Ammonia Albumin 02/25/22 02/25/22 02/25/22 04:12 04:12 05:05 WBC RBC 3.07 L Hgb 10.2 L Hct 31.5 L MCV 103 H MCH 33 H RDW 15.6 H Lymph % (Auto) Alfalfa % (Auto) Lymph # (Auto) Alfalfa # (Auto) Seg Neutrophils % Seg Neutrophils # PT INR ABG pH ABG pO2 ABG HCO3 32.5 H ABG O2 Saturation ABG Base Excess 5.6 H ABG Hemoglobin 10.8 L Oxyhemoglobin 94.8 L Sodium Potassium 3.5 L Chloride 107.7 H Carbon Dioxide BUN Creatinine 0.5 L Glucose POC Glucose Calcium 7.0 L Phosphorus AST ALT Ammonia Albumin 08/04/1002/25/22 02/26/22 12:05 18:33 00:07 WBC RBC Hgb Hct MCV MCH RDW Lymph % (Auto) Alfalfa % (Auto) Lymph # (Auto) Alfalfa # (Auto) Seg Neutrophils % Seg Neutrophils # PT INR ABG pH ABG pO2 ABG HCO3 ABG O2 Saturation ABG Base Excess ABG Hemoglobin Oxyhemoglobin Sodium Potassium Chloride Carbon Dioxide BUN Creatinine Glucose POC Glucose 127 H 125 H 114 H Calcium Phosphorus AST ALT Ammonia Albumin 02/26/22 02/26/22 02/26/22 03:30 04:42 11:34 WBC RBC Hgb Hct MCV MCH RDW Lymph % (Auto) Alfalfa % (Auto) Lymph # (Auto) Alfalfa # (Auto) Seg Neutrophils % Seg Neutrophils # PT INR ABG pH ABG pO2 143.2 H ABG HCO3 33.2 H ABG O2 Saturation ABG Base Excess 6.5 H ABG Hemoglobin 9.4 L Oxyhemoglobin Sodium Potassium Chloride Carbon Dioxide 32 H BUN Creatinine 0.7 L Glucose POC Glucose 114 H Calcium 8.0 L Phosphorus AST ALT Ammonia Albumin 02/26/22 02/26/22 02/27/22 18:17 23:37 04:19 WBC 13.7 H RBC 2.78 L Hgb 9.3 L Hct 28.5 L MCV 103 H MCH 33 H RDW 16.3 H Lymph % (Auto) Alfalfa % (Auto) Lymph # (Auto) Alfalfa # (Auto) Seg Neutrophils % Seg Neutrophils # PT INR ABG pH ABG pO2 ABG HCO3 ABG O2 Saturation ABG Base Excess ABG Hemoglobin Oxyhemoglobin Sodium Potassium Chloride Carbon Dioxide BUN Creatinine Glucose POC Glucose 111 H 117 H Calcium Phosphorus AST ALT Ammonia Albumin 02/27/22 02/27/22 02/27/22 04:19 04:35 05:27 WBC RBC Hgb Hct MCV MCH RDW Lymph % (Auto) Alfalfa % (Auto) Lymph # (Auto) Alfalfa # (Auto) Seg Neutrophils % Seg Neutrophils # PT INR ABG pH ABG pO2 96.3 H ABG HCO3 34.9 H ABG O2 Saturation ABG Base Excess 8.1 H ABG Hemoglobin Oxyhemoglobin Sodium Potassium Chloride Carbon Dioxide 31 H BUN Creatinine 0.6 L Glucose 107 H POC Glucose 133 H Calcium 7.8 L Phosphorus AST ALT Ammonia Albumin 08/11/22 08/11/22 08/12/22 11:15 23:35 03:38 WBC 13.3 H RBC 3.05 L Hgb 10.2 L Hct 30.7 L MCV 101 H MCH 33 H RDW 16.1 H Lymph % (Auto) Alfalfa % (Auto) Lymph # (Auto) Alfalfa # (Auto) Seg Neutrophils % Seg Neutrophils # PT INR ABG pH ABG pO2 ABG HCO3 ABG O2 Saturation ABG Base Excess ABG Hemoglobin Oxyhemoglobin Sodium Potassium Chloride Carbon Dioxide BUN Creatinine Glucose POC Glucose 129 H 122 H Calcium Phosphorus AST ALT Ammonia Albumin 02/28/22 02/28/22 02/28/22 04:50 05:30 09:30 WBC RBC Hgb Hct MCV MCH RDW Lymph % (Auto) Alfalfa % (Auto) Lymph # (Auto) Alfalfa # (Auto) Seg Neutrophils % Seg Neutrophils # PT INR ABG pH 7.451 H 7.488 H ABG pO2 77.0 L ABG HCO3 37.1 H 34.6 H ABG O2 Saturation ABG Base Excess 11.5 H 10.1 H ABG Hemoglobin 10.1 L 10.0 L Oxyhemoglobin Sodium Potassium Chloride Carbon Dioxide BUN Creatinine Glucose POC Glucose 121 H Calcium Phosphorus AST ALT Ammonia Albumin 02/28/22 02/28/22 03/01/22 11:36 23:07 04:27 WBC 12.5 H RBC 2.85 L Hgb 9.5 L Hct 28.6 L MCV 101 H MCH 33 H RDW 15.7 H Lymph % (Auto) Alfalfa % (Auto) Lymph # (Auto) Alfalfa # (Auto) Seg Neutrophils % Seg Neutrophils # PT INR ABG pH ABG pO2 ABG HCO3 ABG O2 Saturation ABG Base Excess ABG Hemoglobin Oxyhemoglobin Sodium Potassium Chloride Carbon Dioxide BUN Creatinine Glucose POC Glucose 112 H 107 H Calcium Phosphorus AST ALT Ammonia Albumin 03/01/22 03/01/22 04:27 05:05 WBC RBC Hgb Hct MCV MCH RDW Lymph % (Auto) Alfalfa % (Auto) Lymph # (Auto) Alfalfa # (Auto) Seg Neutrophils % Seg Neutrophils # PT INR ABG pH ABG pO2 ABG HCO3 ABG O2 Saturation ABG Base Excess ABG Hemoglobin Oxyhemoglobin Sodium 147 H D Potassium Chloride Carbon Dioxide 34 H BUN Creatinine 0.6 L Glucose 128 H POC Glucose 119 H Calcium 7.9 L Phosphorus AST ALT Ammonia Albumin
--- NOTE | 2022-03-01 11:58 | Progress Note ---
<CARSON ROSS - Last Filed: 03/01/22 12:25> Assessment and Plan Assessment and plan: This is a 51-year-old male with HTN, seizure disorder, Down syndrome, HLD, partial blindness admitted with aspiration pneumonia, probable bronchogenic carcinoma, acute hypoxic respiratory failure and acute encephalopathy Neuro: Acute encephalopathy, h/o seizure disorder, Down syndrome, partial blindness -Patient currently sedated with propofol -RASS goal 0 to -1 -Reorientation as needed -Maintain sleep-wake cycle -aspiration/seizure precautions -As needed analgesia -CT head showed no acute abnormality -Continue Keppra Cardiac: Hypotension, h/o HTN, HLD -Cardiology consulted, appreciate recommendations -Blood pressure monitoring per protocol -d/c amlodipine -Midodrine TID -s/p 500 ml NS 02/25 and 1L LR 02/26, 2L LR 03/01 Respiratory: Acute hypoxic respiratory failure, r/o bronchogenic carcinoma -CCM consulted, appreciate recommendations -Intubated on 02/24 with a 8.0 at 23 at the lips but extubated 02/28 -reintubated 02/28 with 8.0 OETT -Vent settings: AC rate 14, TV 360, PEEP 8, FO2 45% -See RT notes for titration -VAP bundle -SPO2 monitoring -02/18 CTA chest showed no evidence of pulmonary embolism, suspected bronchogenic carcinoma with associated obstruction of the right lower lobe proximal bronchus segment, 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 adenopathy and suspected to left lower lobe metastatic nodule -02/26 Bronch->mucous, no lesion noted -02/27 CT chest showed right mainstem bronchus patent with small amount of interval bronchial fluid which may be mucus (this may account for the appearance of the prior CTA chest fluid-filled airway rather than entering bronchial lesion), previously seen complete left lower lobe since related to bronchial occlusion has significantly improved, there is persistent compressive atelectasis in the right lower lung secondary to the pleural effusion, bilateral pleural effusions, right lung pneumonia -CT neck pending GI: Moderate protein calorie malnutrition -24 hours -1592 mL -PPI -NTR consulted for tube feedings -BR: Senokot S : hypernatremia -FWF -Monitor intake and output -Renally dose medications -Avoid nephrotoxic medications -Trend BMP ID: Aspiration PNA -S/p Rocephin for 5 days (02/19-02/24) -Monitor WBC and temperature curve Endo: NAD -Avoid hypoglycemia -Accu-Cheks every 6 -Avoid hypoglycemia Heme: NAD -Trend CBC -Transfuse hemoglobin less than 7 -SCDs to BLE while in bed The high probability of a clinically significant, sudden or life threatening de terioration of the [resp] system(s) required my full and direct attention, intervention and personal management. The aggregate critical care time was [60] minutes. This time is in addition to time spent performing reported procedures but includes the following: [x] Data Review and interpretation [x] Patient assessment and monitoring of vital signs [x] Documentation [x] Medication orders and management Disposition Plan: icu Total Time Spent with Patient (Minutes): 60 History Interval history: This is a 51-year-old male with HTN, seizure disorder, Down syndrome, HLD, and partial blindness [facility] who presented to emergency department on 02/19 for evaluation of change in mental status. Of note patient was recently discharged a few weeks ago for a seizure disorder and UTI. Upon arrival to the emergency department patient was noted to be hypoxic with SPO2 in the 80s on a nonrebreather with difficulty breathing. Work-up in the emergency department revealed CXR which showed elevation of the right hemidiaphragm, right lower lung atelectasis and effusion with mild increased pulmonary vascularity but no pneumothorax and CT of the head did not show any acute abnormality. 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 Patient was admitted to the hospitalist service to the floor. Hospital course to date: 02/19/2022. Consult pulmonary for further evaluation and possible bronchoscopy. I suspect patient has component of aspiration pneumonia as well. We will obtain a speech therapy evaluation for swallowing and start empiric antibiotics. Continue O2 supplementation to maintain sats greater than 92%. 02/20/2022. Pulmonary feels that the abnormality seen on CT scan is highly unlikely for a mass given negative chest x-ray 1 month ago and no risk factors. Etiology is likely secondary to aspiration from possibly a foreign body most likely food with atelectasis of the right lower lobe. Bronchoscopy is needed in the case to evaluate to see if lung mass is there vs foreign body, but at this time not able to do because no identifiable person that is able to give consent. Continue aspiration precautions and continue speech therapy evaluation for swallowing. Keep n.p.o. for now 02/21/2022. Patient remains NPO. Consider DHT placement. Follow-up with speech therapy evaluation. Pulmonology to consider bronchoscopy if able to obtain co nsent. Continue IV antibiotics for aspiration pneumonia 02/22/2022. Patient remains NPO. Consider DHT placement. Follow-up with speech therapy evaluation. Pulmonology to consider bronchoscopy if able to obtain consent. Continue IV antibiotics for aspiration pneumonia 02/23/2022. DHT placed yesterday. TF initiated for nutritional support. Patient currently with strict NPO. Aspiration precautions. Pulmonology to consider bronchoscopy if able to obtain consent. Continue IV antibiotics for aspiration pneumonia 02/24: Patient was transferred to the ICU for further monitoring. This morning patient remained on high flow nasal cannula on 40 L/100% and despite repeated nasotracheal suctioning patient SPO2 remained in the 80s. Patient was placed on nonrebreather and SPO2 increased to upper 80s. Patient was subsequently intubated by anesthesia. Started on sedation. 02/25: Patient remains sedated on fentanyl, potassium and magnesium repleted. IV fluids and amlodipine discontinued. Possible bronchoscopy tomorrow. 02/26: Patient had a bronchoscopy today which showed mucus and no endobronchial lesions or masses. FiO2 was increased to 100 during and postprocedure weaning as tolerated. Repeat CXR is much improved after bronc. Given 1 L LR bolus due to hypotension. No acute events reported overnight. 02/27: Decreased PEEP, will repeat CT of chest. no acute changes overnight. 02/28: Patient was extubated today however had to be be intubated shortly after. Patient ETT looked mispositioned on x-ray and Dr. Alonzo did do a bedside bronc. Patient was briefly hypotensive and on Levophed postintubation however Levophed was quickly titrated off and patient did not require central line. No acute events reported overnight. Will obtain CT neck d/t difficulty intubating. Ethic committee consulted. 03/04: Overnight patient was hypotensive and started on IVF. Patient started on steroids and given 2 L LR Hospitalist Physical - Constitutional Vitals: Temp Pulse Resp BP Pulse Ox 98.3 F 78 14 113/59 95 03/01/22 11:34 03/01/22 11:19 03/01/22 11:19 03/01/22 11:15 03/01/22 11:19 General appearance: Present: no acute distress, well-nourished - EENT Eyes: Present: PERRL, EOM intact ENT: poor dentition - Neck Neck: Present: normal ROM - Respiratory Respiratory effort: normal Respiratory: bilateral: diminished - Cardiovascular Rhythm: regular Heart Sounds: Present: S1 & S2. Absent: systolic murmur, diastolic murmur - Extremities Extremities: no ischemia, pulses intact, pulses symmetrical, No edema, normal temperature, normal color Peripheral Pulses: within normal limits - Abdominal General gastrointestinal: soft, non-tender, non-distended, normal bowel sounds - Integumentary Integumentary: Present: warm, dry - Psychiatric Psychiatric: cooperative - Neurologic Neurologic: CNII-XII intact, no focal deficits, moves all extremities - Allied Health Allied health notes reviewed: nursing, RT HEART Score - HEART Score Troponin: Troponin T < 0.010 ng/mL (0.00-0.029) 02/18/22 21:02 Results - Labs CBC & Chem 7: 03/01/22 04:27 03/01/22 04:27 Labs: Laboratory Last Values WBC 12.5 K/mm3 (4.5-11.0) H 03/01/22 04:27 RBC 2.85 M/mm3 (3.65-5.03) L 03/01/22 04:27 Hgb 9.5 gm/dl (11.8-15.2) L 03/01/22 04:27 Hct 28.6 % (35.5-45.6) L 03/01/22 04:27 MCV 101 fl (84-94) H 03/01/22 04:27 MCH 33 pg (28-32) H 03/01/22 04:27 MCHC 33 % (32-34) 03/01/22 04:27 RDW 15.7 % (13.2-15.2) H 03/01/22 04:27 Plt Count 343 K/mm3 (140-440) 03/01/22 04:27 Lymph % (Auto) 5.5 % (13.4-35.0) L 02/20/22 04:59 [place] % (Auto) 12.1 % (0.0-7.3) H 02/20/22 04:59 Eos % (Auto) 0.2 % (0.0-4.3) 02/20/22 04:59 Baso % (Auto) 0.8 % (0.0-1.8) 02/20/22 04:59 Lymph # (Auto) 0.6 K/mm3 (1.2-5.4) L 02/20/22 04:59 [place] # (Auto) 1.4 K/mm3 (0.0-0.8) H 02/20/22 04:59 Eos # (Auto) 0.0 K/mm3 (0.0-0.4) 02/20/22 04:59 Baso # (Auto) 0.1 K/mm3 (0.0-0.1) 02/20/22 04:59 Seg Neutrophils % 81.4 % (40.0-70.0) H 02/20/22 04:59 Seg Neutrophils # 9.2 K/mm3 (1.8-7.7) H 02/20/22 04:59 PT 16.9 Sec. (12.2-14.9) H 02/18/22 21:02 INR 1.20 (0.87-1.13) H 02/18/22 21:02 ABG pH 7.488 pH Units (7.350-7.450) H 02/28/22 09:30 ABG pCO2 46.7 mm Hg 02/28/22 09:30 ABG pO2 87.5 mm Hg (80.0-90.0) 02/28/22 09:30 ABG HCO3 34.6 mmol/L (20.0-26.0) H 02/28/22 09:30 ABG O2 Saturation 97.2 % (95.0-99.0) 02/28/22 09:30 ABG O2 Content 13.5 (0.0-44) 02/28/22 09:30 ABG Base Excess 10.1 mmol/L (-2.0-3.0) H 02/28/22 09:30 ABG Hemoglobin 10.0 gm/dl (14.0-18.0) L 02/28/22 09:30 ABG Carboxyhemoglobin 1.4 % (0.0-5.0) 02/28/22 09:30 ABG Methemoglobin 0.6 % (0.0-1.5) 02/28/22 09:30 Oxyhemoglobin 95.3 % (95.0-99.0) 02/28/22 09:30 FiO2 40 % 02/28/22 09:30 Sodium 147 mmol/L (137-145) H D 03/01/22 04:27 Potassium 3.9 mmol/L (3.6-5.0) 03/01/22 04:27 Chloride 106.7 mmol/L (98-107) 03/01/22 04:27 Carbon Dioxide 34 mmol/L (22-30) H 03/01/22 04:27 Anion Gap 10 mmol/L 03/01/22 04:27 BUN 9 mg/dL (9-20) 03/01/22 04:27 Creatinine 0.6 mg/dL (0.8-1.3) L 03/01/22 04:27 Estimated GFR > 60 ml/min 03/01/22 04:27 BUN/Creatinine Ratio 15 % 03/01/22 04:27 Glucose 128 mg/dL (75-100) H 03/01/22 04:27 POC Glucose 121 mg/dL (70-105) H 03/01/22 11:29 Lactic Acid 1.20 mmol/L (0.7-2.0) 02/18/22 21:02 Calcium 7.9 mg/dL (8.4-10.2) L 03/01/22 04:27 Phosphorus 3.00 mg/dL (2.5-4.5) D 02/25/22 04:12 Magnesium 1.70 mg/dL (1.7-2.3) 02/25/22 04:31 Total Bilirubin 0.50 mg/dL (0.1-1.2) 02/18/22 21:02 AST 48 units/L (5-40) H 02/18/22 21:02 ALT 64 units/L (7-56) H 02/18/22 21:02 Alkaline Phosphatase 88 units/L (35-129) 02/18/22 21:02 Ammonia 14.0 umol/L (25-60) L 02/18/22 23:22 Troponin T < 0.010 ng/mL (0.00-0.029) 02/18/22 21:02 Total Protein 7.2 g/dL (6.3-8.2) 02/18/22 21:02 Albumin 2.7 g/dL (3.9-5) L 02/18/22 21:02 Albumin/Globulin Ratio 0.6 % 02/18/22 21:02 Urine Color Dark yellow (Yellow) 02/18/22 Unknown Urine Turbidity Clear (Clear) 02/18/22 Unknown Urine pH 7.0 (5.0-7.0) 02/18/22 Unknown Ur Specific [place] 1.015 (1.003-1.030) 02/18/22 Unknown Urine Protein <15 mg/dl mg/dL (Negative) 02/18/22 Unknown Urine Glucose (UA) Negative mg/dL (Negative) 02/18/22 Unknown Urine Ketones Negative mg/dL (Negative) 02/18/22 Unknown Urine Blood Trace (Negative) 02/18/22 Unknown Urine Nitrite Negative (Negative) 02/18/22 Unknown Urine Bilirubin Negative (Negative) 02/18/22 Unknown Urine Urobilinogen < 2.0 mg/dL (<2.0) 02/18/22 Unknown Ur Leukocyte Esterase Negative (Negative) 02/18/22 Unknown Urine WBC (Auto) 2.0 /HPF (0.0-6.0) 02/18/22 Unknown Urine RBC (Auto) 9.0 /HPF (0.0-6.0) 02/18/22 Unknown Urine Mucus Few /HPF 02/18/22 Unknown Urine Opiates Screen Negative 02/18/22 Unknown Urine Methadone Screen Negative 02/18/22 Unknown Ur Barbiturates Screen Negative 02/18/22 Unknown Ur Phencyclidine Scrn Negative 02/18/22 Unknown Ur Amphetamines Screen Negative 02/18/22 Unknown U Benzodiazepines Scrn Negative 02/18/22 Unknown Urine Cocaine Screen Negative 02/18/22 Unknown U Marijuana (THC) Screen Negative 02/18/22 Unknown Drugs of Abuse Note Disclamer 02/18/22 Unknown Plasma/Serum Alcohol < 0.01 % (0-0.07) 02/18/22 21:02 Horowitz/IV: Voiding Method Indwelling Catheter Active Medications - Current Medications Current Medications: Generic Name Dose Route Start Last Admin Trade Name Freq PRN Reason Stop Dose Admin Acetaminophen 650 mg 02/20/22 20:10 02/20/22 20:21 Acetaminophen 650 Mg Rect Supp TN 650 mg Q4H PRN Administration Pain, Mild (1-3) Albuterol 2.5 mg 02/23/22 16:00 03/01/22 08:00 Albuterol 2.5 Mg/3 Ml Nebu IH 2.5 mg Q4HRT LAZARUS Administration Famotidine 20 mg 02/25/22 10:00 03/01/22 09:00 Famotidine 20 Mg Tab FEEDTUBE 20 mg BID LAZARUS Administration Fentanyl 50 mcg 02/24/22 15:05 Fentanyl 100 Mcg/2 Ml Inj IV Q10MIN PRN ANALGESIA Heparin Sodium (Porcine) 5,000 unit 02/19/22 06:00 03/01/22 06:33 Heparin 5,000 Unit/1 Ml Vial SUB-Q 5,000 unit Q8HR LAZARUS Administration Hydrocortisone Sodium Succinate 100 mg 03/01/22 14:00 Hydrocortisone Sod Succ 100 Mg/2 Ml Vial IV Q8HR LAZARUS Hydrophilic Ointment 1 applic 02/24/22 15:05 Lip Therapy Vaseline TP Q2HR PRN Dry Lips Fentanyl Citrate 2,000 mcg in 100 mls @ 3.16 mls/hr 02/24/22 16:00 02/26/22 02:00 Fentanyl Drip Premix IV 0 mcg/kg/hr TITR LAZARUS 0 mls/hr Titration Protocol 1 MCG/KG/HR Propofol 1,000 mg in 100 mls @ 1.896 mls/hr 02/24/22 16:00 02/28/22 21:30 Diprivan 10 Mg/Ml IV 0 mcg/kg/min TITR LAZARUS 0 mls/hr Titration Protocol 5 MCG/KG/MIN NORepinephrine/NS 8 MG-250 ML 8 mg in 250 mls @ 3.75 mls/hr 02/28/22 22:52 03/01/22 10:44 Norepinephrine/Ns 8 Mg-250 Ml (Double Conc) IV 1 mcg/min TITRATE LAZARUS 1.875 mls/hr Titration Protocol 2 MCG/MIN Lactated Ringer's 1,000 mls @ 999 mls/hr 03/01/22 11:04 03/01/22 11:51 Lactated Ringers IV 03/01/22 12:04 999 mls/hr BOLUS ONE Administration Lactated Ringer's 1,000 mls @ 999 mls/hr 03/01/22 11:04 03/01/22 11:51 Lactated Ringers IV 03/01/22 12:04 999 mls/hr BOLUS ONE Administration Levetiracetam 500 mg 02/25/22 22:00 03/01/22 09:00 Levetiracetam 500 Mg/5 Ml Oral Liqd FEEDTUBE 500 mg BID LAZARUS Administration Levothyroxine Sodium 25 mcg 02/26/22 06:00 03/01/22 06:33 Levothyroxine 25 Mcg Tab FEEDTUBE 25 mcg QAM@0600 LAZARUS Administration Magnesium Hydroxide 30 ml 02/19/22 02:02 Magnesium Hydroxide (Mom) Oral Liqd Udc PO Q4H PRN Constipation Midodrine 10 mg 02/26/22 08:00 03/01/22 11:51 Midodrine 10 Mg Tab PO 10 mg TID@0800,1200,1600 LAZARUS Administration Morphine Sulfate 2 mg 02/19/22 02:02 Morphine 2 Mg/1 Ml Inj IV Q4H PRN Pain, Moderate (4-6) Morphine Sulfate 4 mg 02/19/22 02:02 Morphine 4 Mg/1 Ml Inj IV Q4H PRN Pain , Severe (7-10) Multi-Ingred Cream/Lotion/Oil/Oint 1 applic 02/24/22 15:05 Mineral Oil/Petrolatum, White Ophth Oint 3.5 Gm OU Q4HR PRN Dry Eye(s) Ondansetron HCl 4 mg 02/19/22 02:02 Ondansetron 4 Mg/2 Ml Inj IV Q8H PRN Nausea And Vomiting Pravastatin Sodium 40 mg 02/25/22 22:00 02/28/22 21:53 Pravastatin 40 Mg Tab FEEDTUBE 40 mg QHS LAZARUS Administration Senna/Docusate Sodium 1 tab 02/24/22 22:00 03/01/22 09:00 Sennosides/Docusate Sodium 8.6/50 Mg Tab FEEDTUBE Not Given BID LAZARUS Sodium Chloride 10 ml 02/19/22 10:00 03/01/22 09:00 Sodium Chloride 0.9% 10 Ml Flush Syringe IV 10 ml BID LAZARUS Administration Sodium Chloride 10 ml 02/19/22 02:02 02/19/22 06:41 Sodium Chloride 0.9% 10 Ml Flush Syringe IV 10 ml PRN PRN Administration LINE FLUSH Nutrition/Malnutrition Assess - Dietary Evaluation Nutrition/Malnutrition Findings: Nutrition Notes Start: 02/19/22 14:29 Freq: Status: Active Protocol: Document 02/28/22 15:34 TIERRA (Rec: 02/28/22 15:46 TIERRA [id number]) Nutrition Notes Initial or Follow up Brief Note Current Diet TF-Vital AF 1.2 Yordy @ 50 ml/hr (from L 02/27). Height 5 ft 3 in Weight 63.2 kg [place] Body Weight (kg) 56.36 BMI 24.7 Weight change and time frame No body weight change reported in 6 days. Weight Status Appropriate Subjective/Other Information RD consult for routine F/U on TF tolerance/continuation. TF continues as prescribed, no further information available at the time, will assess at F /U. Pt was extubated this morning, but soon had to be intubated again, now Pt continues on Mechanical Ventilation, O2 saturation @ 94%, according to Physical Assessment History notes. Percent of energy/protein needs met: Prescribed TF-Vital AF 1.2 Yordy @ 50 ml/hr provides for energy/protein needs (1,450 Kcal/91 g) during LOS, 104% Kcal; 100% AA. #1 Nutrition Diagnosis Inadequate oral intake Comments: Pt was extubated this morning, but soon had to be intubated again, now Pt continues on Mechanical Ventilation, O2 saturation @ 94%, according to Physical Assessment History notes. Diagnosis Progress(for reassessment Continues documentation) Is patient on ventilator? Yes Is Patient Ambulatory and/or Out of Bed No REE-([facility]-confined to bed) 1591.836 Kcal/Kg value to use for calculation 22 Approximate Energy Requirements Using 1390 kcal/Kg Calculation Used for Recommendations Kcal/kg Additional Notes Protein: 1.2-2 g/Kg ABW; 76- 126 g/day. Fluids: 1 ml/Kcal, or as per MD. Nutrition Intervention Nutrition Support: Continue TF-Vital AF 1.2 Yordy @ 50 ml/hr. Flush: 70 ml water Q 4 hr, or as per MD. Kcal 1,450 Protein (gm) 91 Carbohydrates (gm) 134 Fat (gm) 65 Fluid (mL) 980 Fiber (gm) 6 % RDI: 104% Kcal; 100% AA. Goal #1 Provide at least 75% of energy /protein needs through Enteral Feeding during LOS. Goal #2 Adjust the dietary intervention to better serve Pt's needs and clinical conditions during LOS. Follow-Up By: 03/07/22 Additional Comments Continue monitoring on ventilation status, TF tolerance, and BM. <SILVIA BUCHANAN - Last Filed: 03/10/22 11:18> History Interval history: I saw and evaluated the patient. I agree with the findings and the plan of care as documented in the Nurse Practitioner's~note, with the following corrections and additions. Hospitalist Physical - Constitutional Vitals: Temp Pulse Resp BP Pulse Ox 98.8 F 73 15 82/41 98 03/10/22 07:13 03/10/22 08:40 03/10/22 08:40 03/10/22 08:00 03/10/22 08:00 HEART Score - HEART Score Troponin: Troponin T < 0.010 ng/mL (0.00-0.029) 02/18/22 21:02 Results - Labs CBC & Chem 7: 03/10/22 03:57 03/10/22 03:57 Labs: Laboratory Last Values WBC 10.2 K/mm3 (4.5-11.0) 03/10/22 03:57 RBC 2.99 M/mm3 (3.65-5.03) L 03/10/22 03:57 Hgb 9.9 gm/dl (11.8-15.2) L 03/10/22 03:57 Hct 30.3 % (35.5-45.6) L 03/10/22 03:57 MCV 102 fl (84-94) H 03/10/22 03:57 MCH 33 pg (28-32) H 03/10/22 03:57 MCHC 33 % (32-34) 03/10/22 03:57 RDW 16.8 % (13.2-15.2) H 03/10/22 03:57 Plt Count 329 K/mm3 (140-440) 03/10/22 03:57 Lymph % (Auto) 13.3 % (13.4-35.0) L 03/10/22 03:57 [place] % (Auto) 12.5 % (0.0-7.3) H 03/10/22 03:57 Eos % (Auto) 1.4 % (0.0-4.3) 03/10/22 03:57 Baso % (Auto) 0.4 % (0.0-1.8) 03/10/22 03:57 Lymph # (Auto) 1.3 K/mm3 (1.2-5.4) 03/10/22 03:57 [place] # (Auto) 1.3 K/mm3 (0.0-0.8) H 03/10/22 03:57 Eos # (Auto) 0.1 K/mm3 (0.0-0.4) 03/10/22 03:57 Baso # (Auto) 0.0 K/mm3 (0.0-0.1) 03/10/22 03:57 Add Manual Diff Complete 03/03/22 03:54 Total Counted 100 03/03/22 03:54 Seg Neutrophils % 72.4 % (40.0-70.0) H 03/10/22 03:57 Seg Neuts % (Manual) 95.0 % (40.0-70.0) H 03/03/22 03:54 Band Neutrophils % 0 % 03/03/22 03:54 Lymphocytes % (Manual) 3.0 % (13.4-35.0) L 03/03/22 03:54 Reactive Lymphs % (Man) 0 % 03/03/22 03:54 Monocytes % (Manual) 2.0 % (0.0-7.3) 03/03/22 03:54 Eosinophils % (Manual) 0 % (0.0-4.3) 03/03/22 03:54 Basophils % (Manual) 0 % (0.0-1.8) 03/03/22 03:54 Metamyelocytes % 0 % 03/03/22 03:54 Myelocytes % 0 % 03/03/22 03:54 Promyelocytes % 0 % 03/03/22 03:54 Blast Cells % 0 % 03/03/22 03:54 Nucleated RBC % Not Reportable 03/03/22 03:54 Seg Neutrophils # 7.4 K/mm3 (1.8-7.7) 03/10/22 03:57 Seg Neutrophils # Man 18.5 K/mm3 (1.8-7.7) H 03/03/22 03:54 Band Neutrophils # 0.0 K/mm3 03/03/22 03:54 Lymphocytes # (Manual) 0.6 K/mm3 (1.2-5.4) L 03/03/22 03:54 Abs React Lymphs (Man) 0.0 K/mm3 03/03/22 03:54 Monocytes # (Manual) 0.4 K/mm3 (0.0-0.8) 03/03/22 03:54 Eosinophils # (Manual) 0.0 K/mm3 (0.0-0.4) 03/03/22 03:54 Basophils # (Manual) 0.0 K/mm3 (0.0-0.1) 03/03/22 03:54 Metamyelocytes # 0.0 K/mm3 03/03/22 03:54 Myelocytes # 0.0 K/mm3 03/03/22 03:54 Promyelocytes # 0.0 K/mm3 03/03/22 03:54 Blast Cells # 0.0 K/mm3 03/03/22 03:54 WBC Morphology Not Reportable 03/03/22 03:54 Hypersegmented Neuts Not Reportable 03/03/22 03:54 Hyposegmented Neuts Not Reportable 03/03/22 03:54 Hypogranular Neuts Not Reportable 03/03/22 03:54 Smudge Cells Not Reportable 03/03/22 03:54 Toxic Granulation Not Reportable 03/03/22 03:54 Toxic Vacuolation Not Reportable 03/03/22 03:54 Dohle Bodies Not Reportable 03/03/22 03:54 Pelger-Huet Anomaly Not Reportable 03/03/22 03:54 Lakshmi Rods Not Reportable 03/03/22 03:54 Platelet Estimate Consistent w auto 03/03/22 03:54 Clumped Platelets Not Reportable 03/03/22 03:54 Plt Clumps, EDTA Not Reportable 03/03/22 03:54 Large Platelets Not Reportable 03/03/22 03:54 Giant Platelets Not Reportable 03/03/22 03:54 Platelet Satelliting Not Reportable 03/03/22 03:54 Plt Morphology Comment Not Reportable 03/03/22 03:54 RBC Morphology Not Reportable 03/03/22 03:54 Dimorphic RBCs Not Reportable 03/03/22 03:54 Polychromasia Not Reportable 03/03/22 03:54 Hypochromasia Not Reportable 03/03/22 03:54 Poikilocytosis Not Reportable 03/03/22 03:54 Anisocytosis 1+ 03/03/22 03:54 Microcytosis Not Reportable 03/03/22 03:54 Macrocytosis Not Reportable 03/03/22 03:54 Spherocytes Not Reportable 03/03/22 03:54 Pappenheimer Bodies Not Reportable 03/03/22 03:54 Sickle Cells Not Reportable 03/03/22 03:54 Target Cells Not Reportable 03/03/22 03:54 Tear Drop Cells Not Reportable 03/03/22 03:54 Ovalocytes Not Reportable 03/03/22 03:54 Helmet Cells Not Reportable 03/03/22 03:54 [place] Bodies Not Reportable 03/03/22 03:54 [place] Rings Not Reportable 03/03/22 03:54 [place] Cells Not Reportable 03/03/22 03:54 Bite Cells Not Reportable 03/03/22 03:54 Crenated Cell Not Reportable 03/03/22 03:54 Elliptocytes Not Reportable 03/03/22 03:54 Acanthocytes (Spur) Not Reportable 03/03/22 03:54 Rouleaux Not Reportable 03/03/22 03:54 Hemoglobin C Crystals Not Reportable 03/03/22 03:54 Schistocytes Not Reportable 03/03/22 03:54 Malaria parasites Not Reportable 03/03/22 03:54 Cash Bodies Not Reportable 03/03/22 03:54 Hem Pathologist Commnt No 03/03/22 03:54 PT 16.9 Sec. (12.2-14.9) H 02/18/22 21:02 INR 1.20 (0.87-1.13) H 02/18/22 21:02 ABG pH 7.465 pH Units (7.350-7.450) H 03/10/22 04:50 ABG pCO2 45.3 mm Hg 03/10/22 04:50 ABG pO2 89.4 mm Hg (80.0-90.0) 03/10/22 04:50 ABG HCO3 31.9 mmol/L (20.0-26.0) H 03/10/22 04:50 ABG O2 Saturation 97.3 % (95.0-99.0) 03/10/22 04:50 ABG O2 Content 14.9 (0.0-44) 03/10/22 04:50 ABG Base Excess 7.3 mmol/L (-2.0-3.0) H 03/10/22 04:50 ABG Hemoglobin 11.0 gm/dl (14.0-18.0) L 03/10/22 04:50 ABG Carboxyhemoglobin 1.6 % (0.0-5.0) 03/10/22 04:50 ABG Methemoglobin 0.5 % (0.0-1.5) 03/10/22 04:50 Oxyhemoglobin 95.2 % (95.0-99.0) 03/10/22 04:50 FiO2 30 % 03/10/22 04:50 Sodium 137 mmol/L (137-145) 03/10/22 03:57 Potassium 3.4 mmol/L (3.6-5.0) L 03/10/22 03:57 Chloride 101.9 mmol/L (98-107) 03/10/22 03:57 Carbon Dioxide 30 mmol/L (22-30) 03/10/22 03:57 Anion Gap 9 mmol/L 03/10/22 03:57 BUN 18 mg/dL (9-20) 03/10/22 03:57 Creatinine 0.6 mg/dL (0.8-1.3) L 03/10/22 03:57 Estimated GFR > 60 ml/min 03/10/22 03:57 BUN/Creatinine Ratio 30 % 03/10/22 03:57 Glucose 95 mg/dL (75-100) 03/10/22 03:57 POC Glucose 92 mg/dL (70-105) 03/09/22 23:59 Lactic Acid 1.20 mmol/L (0.7-2.0) 02/18/22 21:02 Calcium 8.1 mg/dL (8.4-10.2) L 03/10/22 03:57 Phosphorus 2.00 mg/dL (2.5-4.5) L 03/06/22 04:17 Magnesium 1.90 mg/dL (1.7-2.3) 03/06/22 04:17 Total Bilirubin 0.30 mg/dL (0.1-1.2) 03/10/22 03:57 AST 17 units/L (5-40) 03/10/22 03:57 ALT 18 units/L (7-56) 03/10/22 03:57 Alkaline Phosphatase 89 units/L (35-129) 03/10/22 03:57 Ammonia 14.0 umol/L (25-60) L 02/18/22 23:22 Troponin T < 0.010 ng/mL (0.00-0.029) 02/18/22 21:02 Total Protein 6.6 g/dL (6.3-8.2) 03/10/22 03:57 Albumin 1.9 g/dL (3.9-5) L 03/10/22 03:57 Albumin/Globulin Ratio 0.4 % 03/10/22 03:57 Urine Color Dark yellow (Yellow) 02/18/22 Unknown Urine Turbidity Clear (Clear) 02/18/22 Unknown Urine pH 7.0 (5.0-7.0) 02/18/22 Unknown Ur Specific [place] 1.015 (1.003-1.030) 02/18/22 Unknown Urine Protein <15 mg/dl mg/dL (Negative) 02/18/22 Unknown Urine Glucose (UA) Negative mg/dL (Negative) 02/18/22 Unknown Urine Ketones Negative mg/dL (Negative) 02/18/22 Unknown Urine Blood Trace (Negative) 02/18/22 Unknown Urine Nitrite Negative (Negative) 02/18/22 Unknown Urine Bilirubin Negative (Negative) 02/18/22 Unknown Urine Urobilinogen < 2.0 mg/dL (<2.0) 02/18/22 Unknown Ur Leukocyte Esterase Negative (Negative) 02/18/22 Unknown Urine WBC (Auto) 2.0 /HPF (0.0-6.0) 02/18/22 Unknown Urine RBC (Auto) 9.0 /HPF (0.0-6.0) 02/18/22 Unknown Urine Mucus Few /HPF 02/18/22 Unknown Urine Opiates Screen Negative 02/18/22 Unknown Urine Methadone Screen Negative 02/18/22 Unknown Ur Barbiturates Screen Negative 02/18/22 Unknown Ur Phencyclidine Scrn Negative 02/18/22 Unknown Ur Amphetamines Screen Negative 02/18/22 Unknown U Benzodiazepines Scrn Negative 02/18/22 Unknown Urine Cocaine Screen Negative 02/18/22 Unknown U Marijuana (THC) Screen Negative 02/18/22 Unknown Drugs of Abuse Note Disclamer 02/18/22 Unknown Plasma/Serum Alcohol < 0.01 % (0-0.07) 02/18/22 21:02 Horowitz/IV: Voiding Method Indwelling Catheter Active Medications - Current Medications Current Medications: Generic Name Dose Route Start Last Admin Trade Name Freq PRN Reason Stop Dose Admin Acetaminophen 650 mg 03/03/22 09:00 Acetaminophen 325 Mg/10.15 Ml Oral Liqd Unit Dose FEEDTUBE Q4H PRN Pain, Mild (1-3); TEMP > 100.4 Albuterol 2.5 mg 02/23/22 16:00 03/10/22 08:23 Albuterol 2.5 Mg/3 Ml Nebu IH 2.5 mg Q4HRT LAZARUS Administration Famotidine 20 mg 02/25/22 10:00 03/10/22 10:59 Famotidine 20 Mg Tab FEEDTUBE 20 mg BID LAZARUS Administration Heparin Sodium (Porcine) 5,000 unit 02/19/22 06:00 03/10/22 06:00 Heparin 5,000 Unit/1 Ml Vial SUB-Q 5,000 unit Q8HR LAZARUS Administration Hydrophilic Ointment 1 applic 02/24/22 15:05 Lip Therapy Vaseline TP Q2HR PRN Dry Lips Levetiracetam 500 mg 02/25/22 22:00 03/10/22 10:59 Levetiracetam 500 Mg/5 Ml Oral Liqd FEEDTUBE 500 mg BID LAZARUS Administration Levothyroxine Sodium 25 mcg 02/26/22 06:00 03/10/22 06:00 Levothyroxine 25 Mcg Tab FEEDTUBE 25 mcg QAM@0600 LAZARUS Administration Magnesium Hydroxide 30 ml 02/19/22 02:02 Magnesium Hydroxide (Mom) Oral Liqd Udc PO Q4H PRN Constipation Morphine Sulfate 2 mg 02/19/22 02:02 Morphine 2 Mg/1 Ml Inj IV Q4H PRN Pain, Moderate (4-6) Morphine Sulfate 4 mg 02/19/22 02:02 Morphine 4 Mg/1 Ml Inj IV Q4H PRN Pain , Severe (7-10) Multi-Ingred Cream/Lotion/Oil/Oint 1 applic 02/24/22 15:05 Mineral Oil/Petrolatum, White Ophth Oint 3.5 Gm OU Q4HR PRN Dry Eye(s) Ondansetron HCl 4 mg 02/19/22 02:02 Ondansetron 4 Mg/2 Ml Inj IV Q8H PRN Nausea And Vomiting Potassium Chloride 40 meq 03/10/22 10:44 03/10/22 11:09 Potassium Chloride 20 Meq Packet FEEDTUBE 03/10/22 15:00 40 meq ONCE LAZARUS Administration Pravastatin Sodium 40 mg 02/25/22 22:00 03/09/22 21:16 Pravastatin 40 Mg Tab FEEDTUBE 40 mg QHS LAZARUS Administration Senna/Docusate Sodium 1 tab 02/24/22 22:00 03/10/22 10:59 Sennosides/Docusate Sodium 8.6/50 Mg Tab FEEDTUBE 1 tab BID LAZARUS Administration Sodium Chloride 10 ml 02/19/22 10:00 03/10/22 11:00 Sodium Chloride 0.9% 10 Ml Flush Syringe IV 10 ml BID LAZARUS Administration Sodium Chloride 10 ml 02/19/22 02:02 03/03/22 14:21 Sodium Chloride 0.9% 10 Ml Flush Syringe IV 10 ml PRN PRN Administration LINE FLUSH Nutrition/Malnutrition Assess - Dietary Evaluation Nutrition/Malnutrition Findings: Nutrition Notes Start: 02/19/22 14:29 Freq: Status: Active Protocol: Document 03/07/22 14:34 IVAN (Rec: 03/07/22 14:44 IVAN [email or web address]) Nutrition Notes Initial or Follow up Reassessment Current Diagnosis Hypertension,Respiratory Failure,Hyperlipidemia Other Pertinent Diagnosis Asp pneu, acute encephalopathy , seizure d/o, partial blindness Current Diet TF - Vital AF 1.2 at 50ml/hr Labs/Tests Reviewed Pertinent Medications Reviewed Height 5 ft 3 in Weight 63.2 kg [place] Body Weight (kg) 56.36 BMI 24.7 Weight change and time frame Unable to obtain current wt; bed scale not working - RN aware Weight Status Appropriate Subjective/Other Information Observed TF infusing at goal rate. Pt tolerating TF and remains on vent support. Pt been intubated since 02/24/22 via ETT. Trach/PEG placement pending. Percent of energy/protein needs met: 90% energy 100% pro Burn Absent Trauma Absent #1 Nutrition Diagnosis Inadequate oral intake Diagnosis Progress(for reassessment Continues documentation) Is patient on ventilator? Yes Is Patient Ambulatory and/or Out of Bed No REE-([facility]-confined to bed) [phone] Calculation Used for Recommendations [facility] Additional Notes Pro needs 1.2-2g/k-126g/ day Fluid needs 1ml/kcal Nutrition Intervention Nutrition Support: Continue Vital AF 1.2 at 50ml/ hr with 75ml water flush q4h. Kcal 1,440 Protein (gm) 90 Carbohydrates (gm) 133 Fat (gm) 65 Fluid (mL) 973 Fiber (gm) 6 Goal #1 TF tolerance Goal #2 TF to meet at least 75% energy and pro needs Follow-Up By: 03/14/22 Additional Comments F/U: stable TF, trach/PEG placement, vent status, wt
[2022-03-01] MEDS: HYDROCORTISONE SOD SUCC 100 MG/2 ML VIAL IV SCH ×2 (13:19→21:04)
[2022-03-01] MEDS: PRAVASTATIN 40 MG TAB FEEDTUBE SCH (21:04)
--- NOTE | 2022-03-02 03:18 | XRay Report ---
CHEST 1 VIEW 03/02/2022 2:05 AM INDICATION / CLINICAL INFORMATION: follow up respiratory failure. COMPARISON: 03/01/2022 FINDINGS: SUPPORT DEVICES: Stable, satisfactory device positioning. HEART / MEDIASTINUM: No significant abnormality. LUNGS / PLEURA: Diffuse bilateral pulmonary opacities with bilateral effusions right greater than lef t No pneumothorax. Signer Name: Buddy Haley MD Signed: 03/02/2022 3:14 AM Workstation Name: [id number]
[2022-03-02] MEDS: ALBUTEROL 2.5 MG/3 ML NEBU IH SCH ×6 (04:48→23:41)
[2022-03-02] MEDS: HYDROCORTISONE SOD SUCC 100 MG/2 ML VIAL IV SCH ×3 (05:15→22:07)
[2022-03-02] MEDS: LEVOTHYROXINE 25 MCG TAB FEEDTUBE SCH (05:15)
[2022-03-02] MEDS: HEPARIN 5,000 UNIT/1 ML VIAL SUB-Q SCH ×3 (05:15→22:07)
[2022-03-02 05:54] LABS: ABG Base Excess 7.4 mmol/L (-2.0-3.0); ABG Methemoglobin 0.6 % (0.0-1.5); ABG Oxygen Saturation 97.9 % (95.0-99.0); ABG PCO2 53.2 mm Hg; ABG PH 7.411 pH Units (7.350-7.450); ABG PO2 110.5 mm Hg (80.0-90.0)
[2022-03-02] MEDS: MIDODRINE 10 MG TAB PO SCH ×3 (08:30→16:49)
--- NOTE | 2022-03-02 09:54 | Progress Note ---
Assessment and Plan 61 y/o male with abnormal CT of chest. 03/02/22: Continue supportive measures. Await ethics consult before surgery consult for trach and peg. no further need for fluid boluses. Will continue stress dose steroids but have daily air leak checks by RT. Still will need trach, will not attempt extubation again. Guarded prognosis. 03/01/22: Patient is having increased urine output. THis could be the cause of new onset hypotension. Will bolus 2 more liters of LR now and reassess. If this continues may need to work up for SIADH including repeat head CT. Follow up ethics review of case. Will need trach for ventilator liberation. Overall prognosis remains guarded. 02/28/22: Will obtain CT neck, noncontrast to look for airway edema or other possible etiologies for failure. Needs ethics consult as given patient's mental state, inability to clear secretions appropriately, will need trach now that he has failed extubation. However he has no family and no POA so no one to give consent. Continue supportive measures. Guarded prognosis. 02/27/22: Continue improvement of oxygenation. Will drop PEEP down today with goal of being at 6 by in the morning. Will repeat CT scan to confirm improvement as no endobronchial lesion was seen, but also to make sure no parenchymal mass. There was no evidence of extrinsic compression during bronch. Likely extubation tomorrow post CT. 02/26/22: Repeat CXR now. Wean Vent as tolerated. Hopeful extubation soon. Mucous removed. NO ENDOBRONCHIAL LESION/MASS 02/25/22: Bronch tentatively planned for tomorrow with therapeutic scope. Awaiting GI lab to give a time. NPO after midnight. Continue high PEEP 02/24/22: WIll attempt to bronch tomorrow morning. NPO after midnight. Just received word from GI lab they are not able to do bronch tomorrow. Cancel NPO order. Continue to feed patient. Repeat ABG in AM along with CXR. 02/21/22: No new pulm recs for today. Please obtain repeat CXR likely on Thursday. If patient happens to get worse, likely not a candidate for bipap given his weak cough and mental state and inability to communicate. If worsens and requires intubation, will bronch then under emergent circumstances if no POA or family is able to be located. Continue CPT. Will discuss with RT about NT suctioning. 02/20/22: Saw speech while on the floor. Would like patient to be NPO now. Discussed with nurse on floor and with IMS. John way as yesterday. Would benefit from bronch if able to get consent as this is not emergent. Continue CPT and q shift NT suctioning. Reviewed admission in the past and of note, patient was recently admitted last month and had a CXR done on the 29 of January that was normal. Given this patient's medical history and the history that I obtained from the nursing staff that at the senior care he was eating solid foods, I suspect that this is aspiration, possibly of a foreign body (most likely food) with atelectasis of the right lower lobe. It is highly unlikely that a mass evolved in size in less than a months time and patient, besides age, has no real risk factors for lung carcinoma. Discussed with the nurse and unfortunately there is no identifiable person that is able to give consent. Bronchoscopy is needed in the case to evaluate to see if lung mass is there vs foreign body, but at this time not able to do. In the meanwhile will recommend the following. 1. Will order CPT with neb therapy 3x daily 2. Suggest maybe NT suctioning q shift. May use nasal trumpet, however do not leave this device in the patient 3. Aspiration precautions 4. Consider speech eval to assess swallowing. Will continue to follow. CCT 31 minutes. Subjective Date of service: 03/02/22 Interval history: No acute events. Good ABG this am. CXR shows vascular congestion, but no hypoxemia. Weaned off levophed. BP's have been good on steroid. Objective Vital Signs - 12hr 03/01/22 03/01/22 03/01/22 22:00 22:30 23:00 Temperature Pulse Rate 78 70 70 Pulse Rate [ Bilateral Throughout] Pulse Rate [ From Monitor] Pulse Rate [ Posterior Bilateral Throughout] Respiratory 16 14 14 Rate Respiratory Rate [Bilateral Throughout] Respiratory Rate [Posterior Bilateral Throughout] Blood Pressure 113/50 113/50 113/49 O2 Sat by Pulse 95 97 98 Oximetry 03/01/22 03/01/22 03/02/22 23:30 23:43 00:00 Temperature 98.8 F Pulse Rate 69 71 59 L Pulse Rate [ 73 Bilateral Throughout] Pulse Rate [ 76 From Monitor] Pulse Rate [ Posterior Bilateral Throughout] Respiratory 13 13 Rate Respiratory 14 Rate [Bilateral Throughout] Respiratory Rate [Posterior Bilateral Throughout] Blood Pressure 113/49 113/49 114/46 O2 Sat by Pulse 98 99 99 Oximetry 03/02/22 03/02/22 03/02/22 00:30 01:00 01:30 Temperature Pulse Rate 75 74 77 Pulse Rate [ Bilateral Throughout] Pulse Rate [ From Monitor] Pulse Rate [ Posterior Bilateral Throughout] Respiratory 14 14 14 Rate Respiratory Rate [Bilateral Throughout] Respiratory Rate [Posterior Bilateral Throughout] Blood Pressure 128/58 120/52 120/52 O2 Sat by Pulse 98 98 94 Oximetry 03/02/22 03/02/22 03/02/22 02:00 02:30 03:00 Temperature Pulse Rate 77 79 69 Pulse Rate [ Bilateral Throughout] Pulse Rate [ From Monitor] Pulse Rate [ Posterior Bilateral Throughout] Respiratory 13 15 15 Rate Respiratory Rate [Bilateral Throughout] Respiratory Rate [Posterior Bilateral Throughout] Blood Pressure 118/53 118/53 126/58 O2 Sat by Pulse 94 95 95 Oximetry 03/02/22 03/02/22 03/02/22 03:30 04:00 04:20 Temperature 97.5 F L Pulse Rate 64 55 L 57 L Pulse Rate [ Bilateral Throughout] Pulse Rate [ 73 From Monitor] Pulse Rate [ Posterior Bilateral Throughout] Respiratory 14 14 Rate Respiratory Rate [Bilateral Throughout] Respiratory Rate [Posterior Bilateral Throughout] Blood Pressure 126/58 120/51 127/51 O2 Sat by Pulse 94 96 110 H Oximetry 03/02/22 03/02/22 03/02/22 04:30 04:49 05:00 Temperature Pulse Rate 52 L 55 L Pulse Rate [ 58 L Bilateral Throughout] Pulse Rate [ From Monitor] Pulse Rate [ Posterior Bilateral Throughout] Respiratory 14 14 Rate Respiratory 15 Rate [Bilateral Throughout] Respiratory Rate [Posterior Bilateral Throughout] Blood Pressure 120/51 119/51 O2 Sat by Pulse 98 100 Oximetry 03/02/22 03/02/22 03/02/22 05:30 06:00 06:30 Temperature Pulse Rate 66 73 70 Pulse Rate [ Bilateral Throughout] Pulse Rate [ From Monitor] Pulse Rate [ Posterior Bilateral Throughout] Respiratory 12 16 14 Rate Respiratory Rate [Bilateral Throughout] Respiratory Rate [Posterior Bilateral Throughout] Blood Pressure 119/51 118/60 118/60 O2 Sat by Pulse 98 93 96 Oximetry 03/02/22 03/02/22 03/02/22 07:00 07:29 07:30 Temperature 98.2 F Pulse Rate 67 69 Pulse Rate [ Bilateral Throughout] Pulse Rate [ From Monitor] Pulse Rate [ Posterior Bilateral Throughout] Respiratory 14 18 Rate Respiratory Rate [Bilateral Throughout] Respiratory Rate [Posterior Bilateral Throughout] Blood Pressure 122/65 122/65 O2 Sat by Pulse 93 93 Oximetry 03/02/22 03/02/22 03/02/22 07:38 07:48 08:00 Temperature 98.2 F Pulse Rate 69 71 Pulse Rate [ 67 Bilateral Throughout] Pulse Rate [ From Monitor] Pulse Rate [ 68 Posterior Bilateral Throughout] Respiratory 18 Rate Respiratory 16 Rate [Bilateral Throughout] Respiratory 15 Rate [Posterior Bilateral Throughout] Blood Pressure 122/65 123/65 O2 Sat by Pulse 96 97 Oximetry 03/02/22 08:30 Temperature Pulse Rate 67 Pulse Rate [ Bilateral Throughout] Pulse Rate [ From Monitor] Pulse Rate [ Posterior Bilateral Throughout] Respiratory 16 Rate Respiratory Rate [Bilateral Throughout] Respiratory Rate [Posterior Bilateral Throughout] Blood Pressure 123/65 O2 Sat by Pulse 96 Oximetry Constitutional: other (on NRB) Eyes: non-icteric ENT: oropharynx moist Neck: supple Effort: normal Ascultation: Bilateral: diminished breath sounds, rhonchi Cardiovascular: regular rate and rhythm Gastrointestinal: normoactive bowel sounds, soft, non-tender (on o2 vest in place) Integumentary: normal Extremities: no cyanosis Neurologic: other (awake) CBC and BMP: 03/01/22 04:27 03/01/22 04:27 ABG, PT/INR, D-dimer: ABG ABG pH 7.411 pH Units (7.350-7.450) 03/02/22 05:18 ABG pCO2 53.2 mm Hg 03/02/22 05:18 ABG pO2 110.5 mm Hg (80.0-90.0) H 03/02/22 05:18 ABG O2 Saturation 97.9 % (95.0-99.0) 03/02/22 05:18 PT/INR, D-dimer PT 16.9 Sec. (12.2-14.9) H 02/18/22 21:02 INR 1.20 (0.87-1.13) H 02/18/22 21:02 Abnormal lab findings: Abnormal Labs 02/18/22 02/18/22 02/18/22 19:34 21:02 21:02 WBC RBC Hgb Hct MCV 101 H MCH 34 H RDW 16.1 H Lymph % (Auto) [place] % (Auto) 12.4 H Lymph # (Auto) [place] # (Auto) 1.2 H Seg Neutrophils % 73.0 H Seg Neutrophils # PT 16.9 H INR 1.20 H ABG pH ABG pO2 ABG HCO3 ABG O2 Saturation ABG Base Excess ABG Hemoglobin Oxyhemoglobin Sodium Potassium Chloride Carbon Dioxide BUN Creatinine Glucose POC Glucose 116 H Calcium Phosphorus AST ALT Ammonia Albumin 02/18/22 02/18/22 02/18/22 21:02 22:45 23:22 WBC RBC Hgb Hct MCV MCH RDW Lymph % (Auto) [place] % (Auto) Lymph # (Auto) [place] # (Auto) Seg Neutrophils % Seg Neutrophils # PT INR ABG pH ABG pO2 55.6 L ABG HCO3 28.4 H ABG O2 Saturation 91.5 L ABG Base Excess 3.8 H ABG Hemoglobin 13.2 L Oxyhemoglobin 89.6 L Sodium Potassium 5.1 H Chloride Carbon Dioxide BUN Creatinine Glucose 102 H POC Glucose Calcium Phosphorus AST 48 H ALT 64 H Ammonia 14.0 L Albumin 2.7 L 02/20/22 02/20/22 02/23/22 04:59 04:59 06:29 WBC 11.4 H RBC Hgb Hct MCV 103 H MCH 33 H RDW 16.5 H Lymph % (Auto) 5.5 L [place] % (Auto) 12.1 H Lymph # (Auto) 0.6 L [place] # (Auto) 1.4 H Seg Neutrophils % 81.4 H Seg Neutrophils # 9.2 H PT INR ABG pH ABG pO2 ABG HCO3 ABG O2 Saturation ABG Base Excess ABG Hemoglobin Oxyhemoglobin Sodium Potassium Chloride Carbon Dioxide BUN Creatinine Glucose POC Glucose 113 H Calcium 8.2 L Phosphorus AST ALT Ammonia Albumin 02/23/22 02/23/22 02/24/22 11:22 16:10 00:02 WBC RBC Hgb Hct MCV MCH RDW Lymph % (Auto) [place] % (Auto) Lymph # (Auto) [place] # (Auto) Seg Neutrophils % Seg Neutrophils # PT INR ABG pH ABG pO2 ABG HCO3 ABG O2 Saturation ABG Base Excess ABG Hemoglobin Oxyhemoglobin Sodium Potassium Chloride Carbon Dioxide BUN Creatinine Glucose POC Glucose 108 H 115 H 109 H Calcium Phosphorus AST ALT Ammonia Albumin 0802/24/22 02/24/22 11:05 11:05 13:20 WBC RBC 3.55 L Hgb Hct MCV 100 H MCH 34 H RDW 15.6 H Lymph % (Auto) [place] % (Auto) Lymph # (Auto) [place] # (Auto) Seg Neutrophils % Seg Neutrophils # PT INR ABG pH ABG pO2 ABG HCO3 ABG O2 Saturation ABG Base Excess ABG Hemoglobin Oxyhemoglobin Sodium 146 H Potassium 3.2 L D Chloride 108.4 H Carbon Dioxide BUN Creatinine 0.5 L Glucose POC Glucose 111 H Calcium 7.9 L Phosphorus 2.20 L AST ALT Ammonia Albumin 02/24/22 02/24/22 02/24/22 16:30 17:03 20:25 WBC RBC Hgb Hct MCV MCH RDW Lymph % (Auto) [place] % (Auto) Lymph # (Auto) [place] # (Auto) Seg Neutrophils % Seg Neutrophils # PT INR ABG pH 7.319 L ABG pO2 65.3 L ABG HCO3 31.3 H ABG O2 Saturation 92.2 L ABG Base Excess 3.8 H ABG Hemoglobin 12.0 L Oxyhemoglobin 90.3 L Sodium Potassium Chloride 107.9 H Carbon Dioxide BUN 8 L Creatinine 0.4 L Glucose POC Glucose 108 H Calcium 7.6 L Phosphorus 4.60 H D AST ALT Ammonia Albumin 02/25/22 02/25/22 02/25/22 04:12 04:12 05:05 WBC RBC 3.07 L Hgb 10.2 L Hct 31.5 L MCV 103 H MCH 33 H RDW 15.6 H Lymph % (Auto) [place] % (Auto) Lymph # (Auto) [place] # (Auto) Seg Neutrophils % Seg Neutrophils # PT INR ABG pH ABG pO2 ABG HCO3 32.5 H ABG O2 Saturation ABG Base Excess 5.6 H ABG Hemoglobin 10.8 L Oxyhemoglobin 94.8 L Sodium Potassium 3.5 L Chloride 107.7 H Carbon Dioxide BUN Creatinine 0.5 L Glucose POC Glucose Calcium 7.0 L Phosphorus AST ALT Ammonia Albumin 02/25/22 02/25/22 02/26/22 12:05 18:33 00:07 WBC RBC Hgb Hct MCV MCH RDW Lymph % (Auto) [place] % (Auto) Lymph # (Auto) [place] # (Auto) Seg Neutrophils % Seg Neutrophils # PT INR ABG pH ABG pO2 ABG HCO3 ABG O2 Saturation ABG Base Excess ABG Hemoglobin Oxyhemoglobin Sodium Potassium Chloride Carbon Dioxide BUN Creatinine Glucose POC Glucose 127 H 125 H 114 H Calcium Phosphorus AST ALT Ammonia Albumin 02/26/22 02/26/22 02/26/22 03:30 04:42 11:34 WBC RBC Hgb Hct MCV MCH RDW Lymph % (Auto) [place] % (Auto) Lymph # (Auto) [place] # (Auto) Seg Neutrophils % Seg Neutrophils # PT INR ABG pH ABG pO2 143.2 H ABG HCO3 33.2 H ABG O2 Saturation ABG Base Excess 6.5 H ABG Hemoglobin 9.4 L Oxyhemoglobin Sodium Potassium Chloride Carbon Dioxide 32 H BUN Creatinine 0.7 L Glucose POC Glucose 114 H Calcium 8.0 L Phosphorus AST ALT Ammonia Albumin 02/26/22 02/26/22 02/27/22 18:17 23:37 04:19 WBC 13.7 H RBC 2.78 L Hgb 9.3 L Hct 28.5 L MCV 103 H MCH 33 H RDW 16.3 H Lymph % (Auto) [place] % (Auto) Lymph # (Auto) [place] # (Auto) Seg Neutrophils % Seg Neutrophils # PT INR ABG pH ABG pO2 ABG HCO3 ABG O2 Saturation ABG Base Excess ABG Hemoglobin Oxyhemoglobin Sodium Potassium Chloride Carbon Dioxide BUN Creatinine Glucose POC Glucose 111 H 117 H Calcium Phosphorus AST ALT Ammonia Albumin 02/27/22 02/27/22 02/27/22 04:19 04:35 05:27 WBC RBC Hgb Hct MCV MCH RDW Lymph % (Auto) [place] % (Auto) Lymph # (Auto) [place] # (Auto) Seg Neutrophils % Seg Neutrophils # PT INR ABG pH ABG pO2 96.3 H ABG HCO3 34.9 H ABG O2 Saturation ABG Base Excess 8.1 H ABG Hemoglobin Oxyhemoglobin Sodium Potassium Chloride Carbon Dioxide 31 H BUN Creatinine 0.6 L Glucose 107 H POC Glucose 133 H Calcium 7.8 L Phosphorus AST ALT Ammonia Albumin 02/27/22 02/27/22 02/28/22 11:15 23:35 03:38 WBC 13.3 H RBC 3.05 L Hgb 10.2 L Hct 30.7 L MCV 101 H MCH 33 H RDW 16.1 H Lymph % (Auto) [place] % (Auto) Lymph # (Auto) [place] # (Auto) Seg Neutrophils % Seg Neutrophils # PT INR ABG pH ABG pO2 ABG HCO3 ABG O2 Saturation ABG Base Excess ABG Hemoglobin Oxyhemoglobin Sodium Potassium Chloride Carbon Dioxide BUN Creatinine Glucose POC Glucose 129 H 122 H Calcium Phosphorus AST ALT Ammonia Albumin 02/28/22 02/28/22 02/28/22 04:50 05:30 09:30 WBC RBC Hgb Hct MCV MCH RDW Lymph % (Auto) [place] % (Auto) Lymph # (Auto) [place] # (Auto) Seg Neutrophils % Seg Neutrophils # PT INR ABG pH 7.451 H 7.488 H ABG pO2 77.0 L ABG HCO3 37.1 H 34.6 H ABG O2 Saturation ABG Base Excess 11.5 H 10.1 H ABG Hemoglobin 10.1 L 10.0 L Oxyhemoglobin Sodium Potassium Chloride Carbon Dioxide BUN Creatinine Glucose POC Glucose 121 H Calcium Phosphorus AST ALT Ammonia Albumin 02/28/22 02/28/22 03/01/22 11:36 23:07 04:27 WBC 12.5 H RBC 2.85 L Hgb 9.5 L Hct 28.6 L MCV 101 H MCH 33 H RDW 15.7 H Lymph % (Auto) [place] % (Auto) Lymph # (Auto) [place] # (Auto) Seg Neutrophils % Seg Neutrophils # PT INR ABG pH ABG pO2 ABG HCO3 ABG O2 Saturation ABG Base Excess ABG Hemoglobin Oxyhemoglobin Sodium Potassium Chloride Carbon Dioxide BUN Creatinine Glucose POC Glucose 112 H 107 H Calcium Phosphorus AST ALT Ammonia Albumin 03/01/22 03/01/22 03/01/22 04:27 05:05 11:29 WBC RBC Hgb Hct MCV MCH RDW Lymph % (Auto) [place] % (Auto) Lymph # (Auto) [place] # (Auto) Seg Neutrophils % Seg Neutrophils # PT INR ABG pH ABG pO2 ABG HCO3 ABG O2 Saturation ABG Base Excess ABG Hemoglobin Oxyhemoglobin Sodium 147 H D Potassium Chloride Carbon Dioxide 34 H BUN Creatinine 0.6 L Glucose 128 H POC Glucose 119 H 121 H Calcium 7.9 L Phosphorus AST ALT Ammonia Albumin 03/01/22 03/01/22 03/02/22 16:15 23:57 05:18 WBC RBC Hgb Hct MCV MCH RDW Lymph % (Auto) [place] % (Auto) Lymph # (Auto) [place] # (Auto) Seg Neutrophils % Seg Neutrophils # PT INR ABG pH ABG pO2 110.5 H ABG HCO3 33.0 H ABG O2 Saturation ABG Base Excess 7.4 H ABG Hemoglobin 8.6 L Oxyhemoglobin Sodium Potassium Chloride Carbon Dioxide BUN Creatinine Glucose POC Glucose 134 H 140 H Calcium Phosphorus AST ALT Ammonia Albumin 03/02/22 05:53 WBC RBC Hgb Hct MCV MCH RDW Lymph % (Auto) [place] % (Auto) Lymph # (Auto) [place] # (Auto) Seg Neutrophils % Seg Neutrophils # PT INR ABG pH ABG pO2 ABG HCO3 ABG O2 Saturation ABG Base Excess ABG Hemoglobin Oxyhemoglobin Sodium Potassium Chloride Carbon Dioxide BUN Creatinine Glucose POC Glucose 158 H Calcium Phosphorus AST ALT Ammonia Albumin
[2022-03-02] MEDS: levETIRAcetam 500 MG/5 ML ORAL LIQD FEEDTUBE SCH ×2 (10:14→22:07)
[2022-03-02] MEDS: FAMOTIDINE 20 MG TAB FEEDTUBE SCH ×2 (10:15→22:07)
[2022-03-02] MEDS: SENNOSIDES/DOCUSATE SODIUM 8.6/50 MG TAB FEEDTUBE SCH ×2 (10:15→22:08)
[2022-03-02 10:23] LABS: Hematocrit 30.7 % (35.5-45.6); Hemoglobin 9.7 gm/dl (11.8-15.2); Mean Corpuscular HGB Conc 32 % (32-34); Mean Corpuscular Volume 102 fl (84-94); Platelet Count 320 K/mm3 (140-440); Red Cell Distribution Width 16.6 % (13.2-15.2)
[2022-03-02 10:44] LABS: BUN/Creatinine Ratio 23; Blood Urea Nitrogen 14 mg/dL (9-20); Calcium 7.9 mg/dL (8.4-10.2); Hemolysis Index 3
--- NOTE | 2022-03-02 11:41 | Progress Note ---
<CARSON ROSS - Last Filed: 03/02/22 11:37> Assessment and Plan Assessment and plan: This is a 51-year-old male with HTN, seizure disorder, Down syndrome, HLD, partial blindness admitted with aspiration pneumonia, probable bronchogenic carcinoma, acute hypoxic respiratory failure and acute encephalopathy Neuro: Acute encephalopathy, h/o seizure disorder, Down syndrome, partial blindness -Patient currently sedated with propofol -RASS goal 0 to -1 -Reorientation as needed -Maintain sleep-wake cycle -aspiration/seizure precautions -As needed analgesia -CT head showed no acute abnormality -Continue Keppra Cardiac: Hypotension, h/o HTN, HLD -Cardiology consulted, appreciate recommendations -Blood pressure monitoring per protocol -d/c amlodipine -Midodrine TID -s/p 500 ml NS 02/25 and 1L LR 02/26, 2L LR 03/01 Respiratory: Acute hypoxic respiratory failure, r/o bronchogenic carcinoma -CCM consulted, appreciate recommendations -Intubated on 02/24 with a 8.0 at 23 at the lips but extubated 02/28 -reintubated 02/28 with 8.0 OETT -Vent settings: AC rate 14, TV 360, PEEP 8, FO2 40% -See RT notes for titration -VAP bundle -SPO2 monitoring -02/18 CTA chest showed no evidence of pulmonary embolism, suspected bronchogenic carcinoma with associated obstruction of the right lower lobe proximal bronchus segment, 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 adenopathy and suspected to left lower lobe metastatic nodule -02/26 Bronch->mucous, no lesion noted -02/27 CT chest showed right mainstem bronchus patent with small amount of interval bronchial fluid which may be mucus (this may account for the appearance of the prior CTA chest fluid-filled airway rather than entering bronchial lesion), previously seen complete left lower lobe since related to bronchial occlusion has significantly improved, there is persistent compressive atelectasis in the right lower lung secondary to the pleural effusion, bilateral pleural effusions, right lung pneumonia -CT neck showed no acute changes -Steroids GI: Moderate protein calorie malnutrition -24 hours +2732 mL -PPI -NTR consulted for tube feedings -BR: Senokot S : Hypernatremia (resolved) -FWF 200 ml q4 hr -Monitor intake and output -Renally dose medications -Avoid nephrotoxic medications -Trend BMP ID: Aspiration PNA -S/p Rocephin for 5 days (02/19-02/24) -Monitor WBC and temperature curve Endo: NAD -Avoid hypoglycemia -Accu-Cheks every 6 -Avoid hypoglycemia Heme: NAD -Trend CBC -Transfuse hemoglobin less than 7 -SCDs to BLE while in bed The high probability of a clinically significant, sudden or life threatening deterioration of the [resp] system(s) required my full and direct attention, intervention and personal management. The aggregate critical care time was [60] minutes. This time is in addition to time spent performing reported procedures but includes the following: [x] Data Review and interpretation [x] Patient assessment and monitoring of vital signs [x] Documentation [x] Medication orders and management Disposition Plan: icu Total Time Spent with Patient (Minutes): 60 History Interval history: This is a 51-year-old male with HTN, seizure disorder, Down syndrome, HLD, and partial blindness was a resident of the [facility] who presented to emergency department on 02/19 for evaluation of change in mental status. Of note patient was recently discharged a few weeks ago for a seizure disorder and UTI. Upon arrival to the emergency department patient was noted to be hypoxic with SPO2 in the 80s on a nonrebreather with difficulty breathing. Work-up in the emergency department revealed CXR which showed elevation of the right hemidiaphragm, right lower lung atelectasis and effusion with mild increased pulmonary vascularity but no pneumothorax and CT of the head did not show any acute abnormality. 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 Patient was admitted to the hospitalist service to the floor. Hospital course to date: 02/19/2022. Consult pulmonary for further evaluation and possible bronchoscopy. I suspect patient has component of aspiration pneumonia as well. We will obtain a speech therapy evaluation for swallowing and start empiric antibiotics. Continue O2 supplementation to maintain sats greater than 92%. 02/20/2022. Pulmonary feels that the abnormality seen on CT scan is highly unlikely for a mass given negative chest x-ray 1 month ago and no risk factors. Etiology is likely secondary to aspiration from possibly a foreign body most likely food with atelectasis of the right lower lobe. Bronchoscopy is needed in the case to evaluate to see if lung mass is there vs foreign body, but at this time not able to do because no identifiable person that is able to give consent. Continue aspiration precautions and continue speech therapy evaluation for swallowing. Keep n.p.o. for now 02/21/2022. Patient remains NPO. Consider DHT placement. Follow-up with speech therapy evaluation. Pulmonology to consider bronchoscopy if able to obtain consent. Continue IV antibiotics for aspiration pneumonia 02/22/2022. Patient remains NPO. Consider DHT placement. Follow-up with speech therapy evaluation. Pulmonology to consider bronchoscopy if able to obtain consent. Continue IV antibiotics for aspiration pneumonia 02/23/2022. DHT placed yesterday. TF initiated for nutritional support. Patient currently with strict NPO. Aspiration precautions. Pulmonology to consider bronchoscopy if able to obtain consent. Continue IV antibiotics for aspiration pneumonia 02/24: Patient was transferred to the ICU for further monitoring. This morning patient remained on high flow nasal cannula on 40 L/100% and despite repeated nasotracheal suctioning patient SPO2 remained in the 80s. Patient was placed on nonrebreather and SPO2 increased to upper 80s. Patient was subsequently intubated by anesthesia. Started on sedation. 02/25: Patient remains sedated on fentanyl, potassium and magnesium repleted. IV fluids and amlodipine discontinued. Possible bronchoscopy tomorrow. 02/26: Patient had a bronchoscopy today which showed mucus and no endobronchial lesions or masses. FiO2 was increased to 100 during and postprocedure weaning as tolerated. Repeat CXR is much improved after bronc. Given 1 L LR bolus due to hypotension. No acute events reported overnight. 02/27: Decreased PEEP, will repeat CT of chest. no acute changes overnight. 02/28: Patient was extubated today however had to be be intubated shortly after. Patient ETT looked mispositioned on x-ray and Dr. Alonzo did do a bedside bronc. Patient was briefly hypotensive and on Levophed postintubation however Levophed was quickly titrated off and patient did not require central line. No acute events reported overnight. Will obtain CT neck d/t difficulty intubating. Ethic committee consulted. 03/04: Overnight patient was hypotensive and started on IVF. Patient started on steroids as no air leak noted and hypotension and given 2 L LR 03/05: Overnight patient received bolus per RN report, no orders seen. [facility] Hospital[facility] Physical - Constitutional Vitals: Temp Pulse Resp BP Pulse Ox 98.2 F 73 16 124/53 96 03/02/22 08:00 03/02/22 11:00 03/02/22 11:00 03/02/22 11:00 03/02/22 11:00 General appearance: Present: no acute distress, well-nourished - EENT Eyes: Present: PERRL, EOM intact ENT: poor dentition - Neck Neck: Present: normal ROM - Respiratory Respiratory effort: normal Respiratory: bilateral: diminished - Cardiovascular Rhythm: regular Heart Sounds: Present: S1 & S2. Absent: systolic murmur, diastolic murmur - Extremities Extremities: no ischemia, pulses intact, pulses symmetrical, normal temperature, normal color Peripheral Pulses: within normal limits - Abdominal General gastrointestinal: soft, non-tender, normal bowel sounds - Integumentary Integumentary: Present: warm, dry - Neurologic Neurologic: moves all extremities - Allied Health Allied health notes reviewed: nursing, RT HEART Score - HEART Score Troponin: Troponin T < 0.010 ng/mL (0.00-0.029) 02/18/22 21:02 Results - Labs CBC & Chem 7: 03/02/22 09:04 03/02/22 09:04 Labs: Laboratory Last Values WBC 15.0 K/mm3 (4.5-11.0) H 03/02/22 09:04 RBC 3.00 M/mm3 (3.65-5.03) L 03/02/22 09:04 Hgb 9.7 gm/dl (11.8-15.2) L 03/02/22 09:04 Hct 30.7 % (35.5-45.6) L 03/02/22 09:04 MCV 102 fl (84-94) H 03/02/22 09:04 MCH 32 pg (28-32) 03/02/22 09:04 MCHC 32 % (32-34) 03/02/22 09:04 RDW 16.6 % (13.2-15.2) H 03/02/22 09:04 Plt Count 320 K/mm3 (140-440) 03/02/22 09:04 Lymph % (Auto) 5.5 % (13.4-35.0) L 02/20/22 04:59 Mitchell % (Auto) 12.1 % (0.0-7.3) H 02/20/22 04:59 Eos % (Auto) 0.2 % (0.0-4.3) 02/20/22 04:59 Baso % (Auto) 0.8 % (0.0-1.8) 02/20/22 04:59 Lymph # (Auto) 0.6 K/mm3 (1.2-5.4) L 02/20/22 04:59 Mitchell # (Auto) 1.4 K/mm3 (0.0-0.8) H 02/20/22 04:59 Eos # (Auto) 0.0 K/mm3 (0.0-0.4) 02/20/22 04:59 Baso # (Auto) 0.1 K/mm3 (0.0-0.1) 02/20/22 04:59 Seg Neutrophils % 81.4 % (40.0-70.0) H 02/20/22 04:59 Seg Neutrophils # 9.2 K/mm3 (1.8-7.7) H 02/20/22 04:59 PT 16.9 Sec. (12.2-14.9) H 02/18/22 21:02 INR 1.20 (0.87-1.13) H 02/18/22 21:02 ABG pH 7.411 pH Units (7.350-7.450) 03/02/22 05:18 ABG pCO2 53.2 mm Hg 03/02/22 05:18 ABG pO2 110.5 mm Hg (80.0-90.0) H 03/02/22 05:18 ABG HCO3 33.0 mmol/L (20.0-26.0) H 03/02/22 05:18 ABG O2 Saturation 97.9 % (95.0-99.0) 03/02/22 05:18 ABG O2 Content 11.8 (0.0-44) 03/02/22 05:18 ABG Base Excess 7.4 mmol/L (-2.0-3.0) H 03/02/22 05:18 ABG Hemoglobin 8.6 gm/dl (14.0-18.0) L 03/02/22 05:18 ABG Carboxyhemoglobin 1.4 % (0.0-5.0) 03/02/22 05:18 ABG Methemoglobin 0.6 % (0.0-1.5) 03/02/22 05:18 Oxyhemoglobin 96.0 % (95.0-99.0) 03/02/22 05:18 FiO2 40 % 03/02/22 05:18 Sodium 142 mmol/L (137-145) 03/02/22 09:04 Potassium 3.9 mmol/L (3.6-5.0) 03/02/22 09:04 Chloride 102.7 mmol/L (98-107) 03/02/22 09:04 Carbon Dioxide 31 mmol/L (22-30) H 03/02/22 09:04 Anion Gap 12 mmol/L 03/02/22 09:04 BUN 14 mg/dL (9-20) 03/02/22 09:04 Creatinine 0.6 mg/dL (0.8-1.3) L 03/02/22 09:04 Estimated GFR > 60 ml/min 03/02/22 09:04 BUN/Creatinine Ratio 23 % 03/02/22 09:04 Glucose 157 mg/dL (75-100) H 03/02/22 09:04 POC Glucose 158 mg/dL (70-105) H 03/02/22 05:53 Lactic Acid 1.20 mmol/L (0.7-2.0) 02/18/22 21:02 Calcium 7.9 mg/dL (8.4-10.2) L 03/02/22 09:04 Phosphorus 3.00 mg/dL (2.5-4.5) D 02/25/22 04:12 Magnesium 1.70 mg/dL (1.7-2.3) 02/25/22 04:31 Total Bilirubin 0.50 mg/dL (0.1-1.2) 02/18/22 21:02 AST 48 units/L (5-40) H 02/18/22 21:02 ALT 64 units/L (7-56) H 02/18/22 21:02 Alkaline Phosphatase 88 units/L (35-129) 02/18/22 21:02 Ammonia 14.0 umol/L (25-60) L 02/18/22 23:22 Troponin T < 0.010 ng/mL (0.00-0.029) 02/18/22 21:02 Total Protein 7.2 g/dL (6.3-8.2) 02/18/22 21:02 Albumin 2.7 g/dL (3.9-5) L 02/18/22 21:02 Albumin/Globulin Ratio 0.6 % 02/18/22 21:02 Urine Color Dark yellow (Yellow) 02/18/22 Unknown Urine Turbidity Clear (Clear) 02/18/22 Unknown Urine pH 7.0 (5.0-7.0) 02/18/22 Unknown Ur Specific Marshall 1.015 (1.003-1.030) 02/18/22 Unknown Urine Protein <15 mg/dl mg/dL (Negative) 02/18/22 Unknown Urine Glucose (UA) Negative mg/dL (Negative) 02/18/22 Unknown Urine Ketones Negative mg/dL (Negative) 02/18/22 Unknown Urine Blood Trace (Negative) 02/18/22 Unknown Urine Nitrite Negative (Negative) 02/18/22 Unknown Urine Bilirubin Negative (Negative) 02/18/22 Unknown Urine Urobilinogen < 2.0 mg/dL (<2.0) 02/18/22 Unknown Ur Leukocyte Esterase Negative (Negative) 02/18/22 Unknown Urine WBC (Auto) 2.0 /HPF (0.0-6.0) 02/18/22 Unknown Urine RBC (Auto) 9.0 /HPF (0.0-6.0) 02/18/22 Unknown Urine Mucus Few /HPF 02/18/22 Unknown Urine Opiates Screen Negative 02/18/22 Unknown Urine Methadone Screen Negative 02/18/22 Unknown Ur Barbiturates Screen Negative 02/18/22 Unknown Ur Phencyclidine Scrn Negative 02/18/22 Unknown Ur Amphetamines Screen Negative 02/18/22 Unknown U Benzodiazepines Scrn Negative 02/18/22 Unknown Urine Cocaine Screen Negative 02/18/22 Unknown U Marijuana (THC) Screen Negative 02/18/22 Unknown Drugs of Abuse Note Disclamer 02/18/22 Unknown Plasma/Serum Alcohol < 0.01 % (0-0.07) 02/18/22 21:02 Horowitz/IV: Voiding Method Indwelling Catheter Active Medications - Current Medications Current Medications: Generic Name Dose Route Start Last Admin Trade Name Freq PRN Reason Stop Dose Admin Acetaminophen 650 mg 02/20/22 20:10 02/20/22 20:21 Acetaminophen 650 Mg Rect Supp MI 650 mg Q4H PRN Administration Pain, Mild (1-3) Albuterol 2.5 mg 02/23/22 16:00 03/02/22 07:38 Albuterol 2.5 Mg/3 Ml Nebu IH 2.5 mg Q4HRT LAZARUS Administration Famotidine 20 mg 02/25/22 10:00 03/02/22 10:15 Famotidine 20 Mg Tab FEEDTUBE 20 mg BID LAZARUS Administration Fentanyl 50 mcg 02/24/22 15:05 Fentanyl 100 Mcg/2 Ml Inj IV Q10MIN PRN ANALGESIA Heparin Sodium (Porcine) 5,000 unit 02/19/22 06:00 03/02/22 05:15 Heparin 5,000 Unit/1 Ml Vial SUB-Q 5,000 unit Q8HR LAZARUS Administration Hydrocortisone Sodium Succinate 100 mg 03/01/22 14:00 03/02/22 05:15 Hydrocortisone Sod Succ 100 Mg/2 Ml Vial IV 100 mg Q8HR LAZARUS Administration Hydrophilic Ointment 1 applic 02/24/22 15:05 Lip Therapy Vaseline TP Q2HR PRN Dry Lips Fentanyl Citrate 2,000 mcg in 100 mls @ 3.16 mls/hr 02/24/22 16:00 02/26/22 02:00 Fentanyl Drip Premix IV 0 mcg/kg/hr TITR LAZARUS 0 mls/hr Titration Protocol 1 MCG/KG/HR Propofol 1,000 mg in 100 mls @ 1.896 mls/hr 02/24/22 16:00 02/28/22 21:30 Diprivan 10 Mg/Ml IV 0 mcg/kg/min TITR LAZARUS 0 mls/hr Titration Protocol 5 MCG/KG/MIN Levetiracetam 500 mg 02/25/22 22:00 03/02/22 10:14 Levetiracetam 500 Mg/5 Ml Oral Liqd FEEDTUBE 500 mg BID LAZARUS Administration Levothyroxine Sodium 25 mcg 02/26/22 06:00 03/02/22 05:15 Levothyroxine 25 Mcg Tab FEEDTUBE 25 mcg QAM@0600 LAZARUS Administration Magnesium Hydroxide 30 ml 02/19/22 02:02 Magnesium Hydroxide (Mom) Oral Liqd Udc PO Q4H PRN Constipation Midodrine 10 mg 02/26/22 08:00 03/02/22 08:30 Midodrine 10 Mg Tab PO 10 mg TID@0800,1200,1600 LAZARUS Administration Morphine Sulfate 2 mg 02/19/22 02:02 Morphine 2 Mg/1 Ml Inj IV Q4H PRN Pain, Moderate (4-6) Morphine Sulfate 4 mg 02/19/22 02:02 Morphine 4 Mg/1 Ml Inj IV Q4H PRN Pain , Severe (7-10) Multi-Ingred Cream/Lotion/Oil/Oint 1 applic 02/24/22 15:05 Mineral Oil/Petrolatum, White Ophth Oint 3.5 Gm OU Q4HR PRN Dry Eye(s) Ondansetron HCl 4 mg 02/19/22 02:02 Ondansetron 4 Mg/2 Ml Inj IV Q8H PRN Nausea And Vomiting Pravastatin Sodium 40 mg 02/25/22 22:00 03/01/22 21:04 Pravastatin 40 Mg Tab FEEDTUBE 40 mg QHS LAZARUS Administration Senna/Docusate Sodium 1 tab 02/24/22 22:00 03/02/22 10:15 Sennosides/Docusate Sodium 8.6/50 Mg Tab FEEDTUBE 1 tab BID LAZARUS Administration Sodium Chloride 10 ml 02/19/22 10:00 03/02/22 10:15 Sodium Chloride 0.9% 10 Ml Flush Syringe IV 10 ml BID LAZARUS Administration Sodium Chloride 10 ml 02/19/22 02:02 02/19/22 06:41 Sodium Chloride 0.9% 10 Ml Flush Syringe IV 10 ml PRN PRN Administration LINE FLUSH Nutrition/Malnutrition Assess - Dietary Evaluation Nutrition/Malnutrition Findings: Nutrition Notes Start: 02/19/22 14:29 Freq: Status: Active Protocol: Document 02/28/22 15:34 TIERRA (Rec: 02/28/22 15:46 TIERRA [id number]) Nutrition Notes Initial or Follow up Brief Note Current Diet TF-Vital AF 1.2 Yordy @ 50 ml/hr (from L 02/27). Height 5 ft 3 in Weight 63.2 kg Gibson Body Weight (kg) 56.36 BMI 24.7 Weight change and time frame No body weight change reported in 6 days. Weight Status Appropriate Subjective/Other Information RD consult for routine F/U on TF tolerance/continuation. TF continues as prescribed, no further information available at the time, will assess at F /U. Pt was extubated this morning, but soon had to be intubated again, now Pt continues on Mechanical Ventilation, O2 saturation @ 94%, according to Physical Assessment History notes. Percent of energy/protein needs met: Prescribed TF-Vital AF 1.2 Yordy @ 50 ml/hr provides for energy/protein needs (1,450 Kcal/91 g) during LOS, 104% Kcal; 100% AA. #1 Nutrition Diagnosis Inadequate oral intake Comments: Pt was extubated this morning, but soon had to be intubated again, now Pt continues on Mechanical Ventilation, O2 saturation @ 94%, according to Physical Assessment History notes. Diagnosis Progress(for reassessment Continues documentation) Is patient on ventilator? Yes Is Patient Ambulatory and/or Out of Bed No REE-([facility]-confined to bed) 1591.836 Kcal/Kg value to use for calculation 22 Approximate Energy Requirements Using 1390 kcal/Kg Calculation Used for Recommendations Kcal/kg Additional Notes Protein: 1.2-2 g/Kg ABW; 76- 126 g/day. Fluids: 1 ml/Kcal, or as per MD. Nutrition Intervention Nutrition Support: Continue TF-Vital AF 1.2 Yordy @ 50 ml/hr. Flush: 70 ml water Q 4 hr, or as per MD. Kcal 1,450 Protein (gm) 91 Carbohydrates (gm) 134 Fat (gm) 65 Fluid (mL) 980 Fiber (gm) 6 % RDI: 104% Kcal; 100% AA. Goal #1 Provide at least 75% of energy /protein needs through Enteral Feeding during LOS. Goal #2 Adjust the dietary intervention to better serve Pt's needs and clinical conditions during LOS. Follow-Up By: 03/07/22 Additional Comments Continue monitoring on ventilation status, TF tolerance, and BM. <SILVIA BUCHANAN - Last Filed: 03/10/22 11:18> History Interval history: I saw and evaluated the patient. I agree with the findings and the plan of care as documented in the Nurse Practitioner's~note, with the following corrections and additions. Hospitalist Physical - Constitutional Vitals: Temp Pulse Resp BP Pulse Ox 98.8 F 73 15 82/41 98 03/10/22 07:13 03/10/22 08:40 03/10/22 08:40 03/10/22 08:00 03/10/22 08:00 HEART Score - HEART Score Troponin: Troponin T < 0.010 ng/mL (0.00-0.029) 02/18/22 21:02 Results - Labs CBC & Chem 7: 03/10/22 03:57 03/10/22 03:57 Labs: Laboratory Last Values WBC 10.2 K/mm3 (4.5-11.0) 03/10/22 03:57 RBC 2.99 M/mm3 (3.65-5.03) L 03/10/22 03:57 Hgb 9.9 gm/dl (11.8-15.2) L 03/10/22 03:57 Hct 30.3 % (35.5-45.6) L 03/10/22 03:57 MCV 102 fl (84-94) H 03/10/22 03:57 MCH 33 pg (28-32) H 03/10/22 03:57 MCHC 33 % (32-34) 03/10/22 03:57 RDW 16.8 % (13.2-15.2) H 03/10/22 03:57 Plt Count 329 K/mm3 (140-440) 03/10/22 03:57 Lymph % (Auto) 13.3 % (13.4-35.0) L 03/10/22 03:57 Mitchell % (Auto) 12.5 % (0.0-7.3) H 03/10/22 03:57 Eos % (Auto) 1.4 % (0.0-4.3) 03/10/22 03:57 Baso % (Auto) 0.4 % (0.0-1.8) 03/10/22 03:57 Lymph # (Auto) 1.3 K/mm3 (1.2-5.4) 03/10/22 03:57 Mitchell # (Auto) 1.3 K/mm3 (0.0-0.8) H 03/10/22 03:57 Eos # (Auto) 0.1 K/mm3 (0.0-0.4) 03/10/22 03:57 Baso # (Auto) 0.0 K/mm3 (0.0-0.1) 03/10/22 03:57 Add Manual Diff Complete 03/03/22 03:54 Total Counted 100 03/03/22 03:54 Seg Neutrophils % 72.4 % (40.0-70.0) H 03/10/22 03:57 Seg Neuts % (Manual) 95.0 % (40.0-70.0) H 03/03/22 03:54 Band Neutrophils % 0 % 03/03/22 03:54 Lymphocytes % (Manual) 3.0 % (13.4-35.0) L 03/03/22 03:54 Reactive Lymphs % (Man) 0 % 03/03/22 03:54 Monocytes % (Manual) 2.0 % (0.0-7.3) 03/03/22 03:54 Eosinophils % (Manual) 0 % (0.0-4.3) 03/03/22 03:54 Basophils % (Manual) 0 % (0.0-1.8) 03/03/22 03:54 Metamyelocytes % 0 % 03/03/22 03:54 Myelocytes % 0 % 03/03/22 03:54 Promyelocytes % 0 % 03/03/22 03:54 Blast Cells % 0 % 03/03/22 03:54 Nucleated RBC % Not Reportable 03/03/22 03:54 Seg Neutrophils # 7.4 K/mm3 (1.8-7.7) 03/10/22 03:57 Seg Neutrophils # Man 18.5 K/mm3 (1.8-7.7) H 03/03/22 03:54 Band Neutrophils # 0.0 K/mm3 03/03/22 03:54 Lymphocytes # (Manual) 0.6 K/mm3 (1.2-5.4) L 03/03/22 03:54 Abs React Lymphs (Man) 0.0 K/mm3 03/03/22 03:54 Monocytes # (Manual) 0.4 K/mm3 (0.0-0.8) 03/03/22 03:54 Eosinophils # (Manual) 0.0 K/mm3 (0.0-0.4) 03/03/22 03:54 Basophils # (Manual) 0.0 K/mm3 (0.0-0.1) 03/03/22 03:54 Metamyelocytes # 0.0 K/mm3 03/03/22 03:54 Myelocytes # 0.0 K/mm3 03/03/22 03:54 Promyelocytes # 0.0 K/mm3 03/03/22 03:54 Blast Cells # 0.0 K/mm3 03/03/22 03:54 WBC Morphology Not Reportable 03/03/22 03:54 Hypersegmented Neuts Not Reportable 03/03/22 03:54 Hyposegmented Neuts Not Reportable 03/03/22 03:54 Hypogranular Neuts Not Reportable 03/03/22 03:54 Smudge Cells Not Reportable 03/03/22 03:54 Toxic Granulation Not Reportable 03/03/22 03:54 Toxic Vacuolation Not Reportable 03/03/22 03:54 Dohle Bodies Not Reportable 03/03/22 03:54 Pelger-Huet Anomaly Not Reportable 03/03/22 03:54 Lakshmi Rods Not Reportable 03/03/22 03:54 Platelet Estimate Consistent w auto 03/03/22 03:54 Clumped Platelets Not Reportable 03/03/22 03:54 Plt Clumps, EDTA Not Reportable 03/03/22 03:54 Large Platelets Not Reportable 03/03/22 03:54 Giant Platelets Not Reportable 03/03/22 03:54 Platelet Satelliting Not Reportable 03/03/22 03:54 Plt Morphology Comment Not Reportable 03/03/22 03:54 RBC Morphology Not Reportable 03/03/22 03:54 Dimorphic RBCs Not Reportable 03/03/22 03:54 Polychromasia Not Reportable 03/03/22 03:54 Hypochromasia Not Reportable 03/03/22 03:54 Poikilocytosis Not Reportable 03/03/22 03:54 Anisocytosis 1+ 03/03/22 03:54 Microcytosis Not Reportable 03/03/22 03:54 Macrocytosis Not Reportable 03/03/22 03:54 Spherocytes Not Reportable 03/03/22 03:54 Pappenheimer Bodies Not Reportable 03/03/22 03:54 Sickle Cells Not Reportable 03/03/22 03:54 Target Cells Not Reportable 03/03/22 03:54 Tear Drop Cells Not Reportable 03/03/22 03:54 Ovalocytes Not Reportable 03/03/22 03:54 Helmet Cells Not Reportable 03/03/22 03:54 [place] Bodies Not Reportable 03/03/22 03:54 Gibson Rings Not Reportable 03/03/22 03:54 Shelby Cells Not Reportable 03/03/22 03:54 Bite Cells Not Reportable 03/03/22 03:54 Crenated Cell Not Reportable 03/03/22 03:54 Elliptocytes Not Reportable 03/03/22 03:54 Acanthocytes (Spur) Not Reportable 03/03/22 03:54 Rouleaux Not Reportable 03/03/22 03:54 Hemoglobin C Crystals Not Reportable 03/03/22 03:54 Schistocytes Not Reportable 03/03/22 03:54 Malaria parasites Not Reportable 03/03/22 03:54 Cash Bodies Not Reportable 03/03/22 03:54 Hem Pathologist Commnt No 03/03/22 03:54 PT 16.9 Sec. (12.2-14.9) H 02/18/22 21:02 INR 1.20 (0.87-1.13) H 02/18/22 21:02 ABG pH 7.465 pH Units (7.350-7.450) H 03/10/22 04:50 ABG pCO2 45.3 mm Hg 03/10/22 04:50 ABG pO2 89.4 mm Hg (80.0-90.0) 03/10/22 04:50 ABG HCO3 31.9 mmol/L (20.0-26.0) H 03/10/22 04:50 ABG O2 Saturation 97.3 % (95.0-99.0) 03/10/22 04:50 ABG O2 Content 14.9 (0.0-44) 03/10/22 04:50 ABG Base Excess 7.3 mmol/L (-2.0-3.0) H 03/10/22 04:50 ABG Hemoglobin 11.0 gm/dl (14.0-18.0) L 03/10/22 04:50 ABG Carboxyhemoglobin 1.6 % (0.0-5.0) 03/10/22 04:50 ABG Methemoglobin 0.5 % (0.0-1.5) 03/10/22 04:50 Oxyhemoglobin 95.2 % (95.0-99.0) 03/10/22 04:50 FiO2 30 % 03/10/22 04:50 Sodium 137 mmol/L (137-145) 03/10/22 03:57 Potassium 3.4 mmol/L (3.6-5.0) L 03/10/22 03:57 Chloride 101.9 mmol/L (98-107) 03/10/22 03:57 Carbon Dioxide 30 mmol/L (22-30) 03/10/22 03:57 Anion Gap 9 mmol/L 03/10/22 03:57 BUN 18 mg/dL (9-20) 03/10/22 03:57 Creatinine 0.6 mg/dL (0.8-1.3) L 03/10/22 03:57 Estimated GFR > 60 ml/min 03/10/22 03:57 BUN/Creatinine Ratio 30 % 03/10/22 03:57 Glucose 95 mg/dL (75-100) 03/10/22 03:57 POC Glucose 92 mg/dL (70-105) 03/09/22 23:59 Lactic Acid 1.20 mmol/L (0.7-2.0) 02/18/22 21:02 Calcium 8.1 mg/dL (8.4-10.2) L 03/10/22 03:57 Phosphorus 2.00 mg/dL (2.5-4.5) L 03/06/22 04:17 Magnesium 1.90 mg/dL (1.7-2.3) 03/06/22 04:17 Total Bilirubin 0.30 mg/dL (0.1-1.2) 03/10/22 03:57 AST 17 units/L (5-40) 03/10/22 03:57 ALT 18 units/L (7-56) 03/10/22 03:57 Alkaline Phosphatase 89 units/L (35-129) 03/10/22 03:57 Ammonia 14.0 umol/L (25-60) L 02/18/22 23:22 Troponin T < 0.010 ng/mL (0.00-0.029) 02/18/22 21:02 Total Protein 6.6 g/dL (6.3-8.2) 03/10/22 03:57 Albumin 1.9 g/dL (3.9-5) L 03/10/22 03:57 Albumin/Globulin Ratio 0.4 % 03/10/22 03:57 Urine Color Dark yellow (Yellow) 02/18/22 Unknown Urine Turbidity Clear (Clear) 02/18/22 Unknown Urine pH 7.0 (5.0-7.0) 02/18/22 Unknown Ur Specific Marshall 1.015 (1.003-1.030) 02/18/22 Unknown Urine Protein <15 mg/dl mg/dL (Negative) 02/18/22 Unknown Urine Glucose (UA) Negative mg/dL (Negative) 02/18/22 Unknown Urine Ketones Negative mg/dL (Negative) 02/18/22 Unknown Urine Blood Trace (Negative) 02/18/22 Unknown Urine Nitrite Negative (Negative) 02/18/22 Unknown Urine Bilirubin Negative (Negative) 02/18/22 Unknown Urine Urobilinogen < 2.0 mg/dL (<2.0) 02/18/22 Unknown Ur Leukocyte Esterase Negative (Negative) 02/18/22 Unknown Urine WBC (Auto) 2.0 /HPF (0.0-6.0) 02/18/22 Unknown Urine RBC (Auto) 9.0 /HPF (0.0-6.0) 02/18/22 Unknown Urine Mucus Few /HPF 02/18/22 Unknown Urine Opiates Screen Negative 02/18/22 Unknown Urine Methadone Screen Negative 02/18/22 Unknown Ur Barbiturates Screen Negative 02/18/22 Unknown Ur Phencyclidine Scrn Negative 02/18/22 Unknown Ur Amphetamines Screen Negative 02/18/22 Unknown U Benzodiazepines Scrn Negative 02/18/22 Unknown Urine Cocaine Screen Negative 02/18/22 Unknown U Marijuana (THC) Screen Negative 02/18/22 Unknown Drugs of Abuse Note Disclamer 02/18/22 Unknown Plasma/Serum Alcohol < 0.01 % (0-0.07) 02/18/22 21:02 Horowitz/IV: Voiding Method Indwelling Catheter Active Medications - Current Medications Current Medications: Generic Name Dose Route Start Last Admin Trade Name Freq PRN Reason Stop Dose Admin Acetaminophen 650 mg 03/03/22 09:00 Acetaminophen 325 Mg/10.15 Ml Oral Liqd Unit Dose FEEDTUBE Q4H PRN Pain, Mild (1-3); TEMP > 100.4 Albuterol 2.5 mg 02/23/22 16:00 03/10/22 08:23 Albuterol 2.5 Mg/3 Ml Nebu IH 2.5 mg Q4HRT LAZARUS Administration Famotidine 20 mg 02/25/22 10:00 03/10/22 10:59 Famotidine 20 Mg Tab FEEDTUBE 20 mg BID LAZARUS Administration Heparin Sodium (Porcine) 5,000 unit 02/19/22 06:00 03/10/22 06:00 Heparin 5,000 Unit/1 Ml Vial SUB-Q 5,000 unit Q8HR LAZARUS Administration Hydrophilic Ointment 1 applic 02/24/22 15:05 Lip Therapy Vaseline TP Q2HR PRN Dry Lips Levetiracetam 500 mg 02/25/22 22:00 03/10/22 10:59 Levetiracetam 500 Mg/5 Ml Oral Liqd FEEDTUBE 500 mg BID LAZARUS Administration Levothyroxine Sodium 25 mcg 02/26/22 06:00 03/10/22 06:00 Levothyroxine 25 Mcg Tab FEEDTUBE 25 mcg QAM@0600 LAZARUS Administration Magnesium Hydroxide 30 ml 02/19/22 02:02 Magnesium Hydroxide (Mom) Oral Liqd Udc PO Q4H PRN Constipation Morphine Sulfate 2 mg 02/19/22 02:02 Morphine 2 Mg/1 Ml Inj IV Q4H PRN Pain, Moderate (4-6) Morphine Sulfate 4 mg 02/19/22 02:02 Morphine 4 Mg/1 Ml Inj IV Q4H PRN Pain , Severe (7-10) Multi-Ingred Cream/Lotion/Oil/Oint 1 applic 02/24/22 15:05 Mineral Oil/Petrolatum, White Ophth Oint 3.5 Gm OU Q4HR PRN Dry Eye(s) Ondansetron HCl 4 mg 02/19/22 02:02 Ondansetron 4 Mg/2 Ml Inj IV Q8H PRN Nausea And Vomiting Potassium Chloride 40 meq 03/10/22 10:44 03/10/22 11:09 Potassium Chloride 20 Meq Packet FEEDTUBE 03/10/22 15:00 40 meq ONCE LAZARUS Administration Pravastatin Sodium 40 mg 02/25/22 22:00 03/09/22 21:16 Pravastatin 40 Mg Tab FEEDTUBE 40 mg QHS LAZARUS Administration Senna/Docusate Sodium 1 tab 02/24/22 22:00 03/10/22 10:59 Sennosides/Docusate Sodium 8.6/50 Mg Tab FEEDTUBE 1 tab BID LAZARUS Administration Sodium Chloride 10 ml 02/19/22 10:00 03/10/22 11:00 Sodium Chloride 0.9% 10 Ml Flush Syringe IV 10 ml BID LAZARUS Administration Sodium Chloride 10 ml 02/19/22 02:02 03/03/22 14:21 Sodium Chloride 0.9% 10 Ml Flush Syringe IV 10 ml PRN PRN Administration LINE FLUSH Nutrition/Malnutrition Assess - Dietary Evaluation Nutrition/Malnutrition Findings: Nutrition Notes Start: 02/19/22 14:29 Freq: Status: Active Protocol: Document 03/07/22 14:34 [facility] (Rec: 03/07/22 14:44 [facility] [id number]) Nutrition Notes Initial or Follow up Reassessment Current Diagnosis Hypertension,Respiratory Failure,Hyperlipidemia Other Pertinent Diagnosis Asp pneu, acute encephalopathy , seizure d/o, partial blindness Current Diet TF - Vital AF 1.2 at 50ml/hr Labs/Tests Reviewed Pertinent Medications Reviewed Height 5 ft 3 in Weight 63.2 kg [place] Body Weight (kg) 56.36 BMI 24.7 Weight change and time frame Unable to obtain current wt; bed scale not working - RN aware Weight Status Appropriate Subjective/Other Information Observed TF infusing at goal rate. Pt tolerating TF and remains on vent support. Pt been intubated since 02/24/22 via ETT. Trach/PEG placement pending. Percent of energy/protein needs met: 90% energy 100% pro Burn Absent Trauma Absent #1 Nutrition Diagnosis Inadequate oral intake Diagnosis Progress(for reassessment Continues documentation) Is patient on ventilator? Yes Is Patient Ambulatory and/or Out of Bed No REE-([facility]-confined to bed) [phone] Calculation Used for Recommendations [facility] Additional Notes Pro needs 1.2-2g/k-126g/ day Fluid needs 1ml/kcal Nutrition Intervention Nutrition Support: Continue Vital AF 1.2 at 50ml/ hr with 75ml water flush q4h. Kcal 1,440 Protein (gm) 90 Carbohydrates (gm) 133 Fat (gm) 65 Fluid (mL) 973 Fiber (gm) 6 Goal #1 TF tolerance Goal #2 TF to meet at least 75% energy and pro needs Follow-Up By: 03/14/22 Additional Comments F/U: stable TF, trach/PEG placement, vent status, wt
[2022-03-02] MEDS: PRAVASTATIN 40 MG TAB FEEDTUBE SCH (22:08)
[2022-03-03] MEDS ORDERED: SODIUM CHLORIDE 0.9% 500 ML 500 ML IV ONE (00:22)
[2022-03-03] MEDS ORDERED: SODIUM CHLORIDE 0.9% 1000 ML 1,000 ML ONE (00:24)
--- NOTE | 2022-03-03 02:49 | XRay Report ---
CHEST 1 VIEW 03/03/2022 1:59 AM INDICATION / CLINICAL INFORMATION: follow up respiratory failure. COMPARISON: 03/02/2022 FINDINGS: SUPPORT DEVICES: ET tube is just above the colt. NG tube is within the stomach HEART / MEDIASTINUM: No significant abnormality. LUNGS / PLEURA: Diffuse bilateral pulmonary opacities in the lower lungs with bilateral effusions No pneumothorax. Signer Name: Buddy Haley MD Signed: 03/03/2022 2:44 AM Workstation Name: [id number]
[2022-03-03] MEDS: ALBUTEROL 2.5 MG/3 ML NEBU IH SCH ×6 (03:48→23:44)
[2022-03-03 04:54] LABS: Hematocrit 28.6 % (35.5-45.6); Mean Corpuscular HGB Conc 32 % (32-34); Mean Corpuscular Volume 102 fl (84-94); Red Blood Count 2.79 M/mm3 (3.65-5.03); Red Cell Distribution Width 16.2 % (13.2-15.2)
[2022-03-03 05:02] LABS: Blood Urea Nitrogen 16 mg/dL (9-20); Calcium 8.1 mg/dL (8.4-10.2); Hemolysis Index 222
[2022-03-03 05:05] LABS: Platelet Count 282 K/mm3 (140-440)
[2022-03-03 05:10] LABS: BUN/Creatinine Ratio 27
[2022-03-03 06:44] LABS: Anisocytosis 1+; Basophils % (Manual) 0 % (0.0-1.8); Eosinophils % (Manual) 0 % (0.0-4.3); Platelet Estimate Consistent w Auto; Total Cells Counted 100
[2022-03-03] MEDS: HYDROCORTISONE SOD SUCC 100 MG/2 ML VIAL IV SCH ×3 (06:55→21:23)
[2022-03-03] MEDS: HEPARIN 5,000 UNIT/1 ML VIAL SUB-Q SCH ×3 (06:55→21:23)
[2022-03-03] MEDS: LEVOTHYROXINE 25 MCG TAB FEEDTUBE SCH (06:56)
[2022-03-03] MEDS ORDERED: ACETAMINOPHEN 325 MG/10.15 ML ORAL LIQD UNIT DOSE FEEDTUBE PRN (09:00)
[2022-03-03] MEDS: FAMOTIDINE 20 MG TAB FEEDTUBE SCH ×2 (09:47→21:23)
[2022-03-03] MEDS: levETIRAcetam 500 MG/5 ML ORAL LIQD FEEDTUBE SCH ×2 (09:48→21:23)
[2022-03-03] MEDS: SENNOSIDES/DOCUSATE SODIUM 8.6/50 MG TAB FEEDTUBE SCH ×2 (09:48→21:24)
[2022-03-03] MEDS: MIDODRINE 10 MG TAB PO SCH ×3 (09:48→18:09)
--- NOTE | 2022-03-03 13:08 | Progress Note ---
<KEATON GOLD - Last Filed: 03/04/22 23:39> Assessment and Plan Assessment and plan: This is a 51-year-old male with HTN, seizure disorder, Down syndrome, HLD, partial blindness admitted with aspiration pneumonia, probable bronchogenic carcinoma, acute hypoxic respiratory failure and acute encephalopathy Hospital course to date: 02/19/2022. Consult pulmonary for further evaluation and possible bronchoscopy. I suspect patient has component of aspiration pneumonia as well. We will obtain a speech therapy evaluation for swallowing and start empiric antibiotics. Continue O2 supplementation to maintain sats greater than 92%. 02/20/2022. Pulmonary feels that the abnormality seen on CT scan is highly unlikely for a mass given negative chest x-ray 1 month ago and no risk factors. Etiology is likely secondary to aspiration from possibly a foreign body most likely food with atelectasis of the right lower lobe. Bronchoscopy is needed in the case to evaluate to see if lung mass is there vs foreign body, but at this time not able to do because no identifiable person that is able to give consent. Continue aspiration precautions and continue speech therapy evaluation for swallowing. Keep n.p.o. for now 02/21/2022. Patient remains NPO. Consider DHT placement. Follow-up with speech therapy evaluation. Pulmonology to consider bronchoscopy if able to obtain consent. Continue IV antibiotics for aspiration pneumonia 02/22/2022. Patient remains NPO. Consider DHT placement. Follow-up with speech therapy evaluation. Pulmonology to consider bronchoscopy if able to obtain consent. Continue IV antibiotics for aspiration pneumonia 02/23/2022. DHT placed yesterday. TF initiated for nutritional support. Patient currently with strict NPO. Aspiration precautions. Pulmonology to consider bronchoscopy if able to obtain consent. Continue IV antibiotics for aspiration pneumonia 02/24: Patient was transferred to the ICU for further monitoring. This morning patient remained on high flow nasal cannula on 40 L/100% and despite repeated nasotracheal suctioning patient SPO2 remained in the 80s. Patient was placed on nonrebreather and SPO2 increased to upper 80s. Patient was subsequently intubated by anesthesia. Started on sedation. 02/25: Patient remains sedated on fentanyl, potassium and magnesium repleted. IV fluids and amlodipine discontinued. Possible bronchoscopy tomorrow. 02/26: Patient had a bronchoscopy today which showed mucus and no endobronchial lesions or masses. FiO2 was increased to 100 during and postprocedure weaning as tolerated. Repeat CXR is much improved after bronc. Given 1 L LR bolus due to hypotension. No acute events reported overnight. 02/27: Decreased PEEP, will repeat CT of chest. no acute changes overnight. 02/28: Patient was extubated today however had to be be intubated shortly after. Patient ETT looked mispositioned on x-ray and Dr. Alonzo did do a bedside bronc. Patient was briefly hypotensive and on Levophed postintubation however Levophed was quickly titrated off and patient did not require central line. No acute events reported overnight. Will obtain CT neck d/t difficulty intubating. Ethic committee consulted. 03/04: Overnight patient was hypotensive and started on IVF. Patient started on steroids as no air leak noted and hypotension and given 2 L LR 03/05: Overnight patient received bolus per RN report, no orders seen. Continue supportive care 03/06: SB on the monitor, HR as low as 37, VSS. Will continue to monitor for now. Awaiting on desicion from ethics community for possible trach and PEG. Continue daily air leak per [facility] Neuro: Acute encephalopathy, h/o seizure disorder, Down syndrome, partial blindness -Patient currently sedated with propofol -RASS goal 0 to -1 -Reorientation as needed -Maintain sleep-wake cycle -aspiration/seizure precautions -As needed analgesia -CT head showed no acute abnormality -Continue Keppra Cardiac: Hypotension, h/o HTN, HLD -Cardiology consulted, appreciate recommendations -Blood pressure monitoring per protocol -d/c amlodipine -Midodrine TID -s/p 500 ml NS 02/25 and 1L LR 02/26, 2L LR 03/01 Respiratory: Acute hypoxic respiratory failure, r/o bronchogenic carcinoma -[facility] consulted, appreciate recommendations -Intubated on 02/24 with a 8.0 at 23 at the lips but extubated 02/28 -reintubated 02/28 with 8.0 OETT -Vent settings: AC rate 14, TV 360, PEEP 8, FO2 40% -See RT notes for titration -VAP bundle -SPO2 monitoring -02/18 CTA chest showed no evidence of pulmonary embolism, suspected bronchogenic carcinoma with associated obstruction of the right lower lobe proximal bronchus segment, 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 adenopathy and suspected to left lower lobe metastatic nodule -02/26 Bronch->mucous, no lesion noted -02/27 CT chest showed right mainstem bronchus patent with small amount of interval bronchial fluid which may be mucus (this may account for the appearance of the prior CTA chest fluid-filled airway rather than entering bronchial lesion), previously seen complete left lower lobe since related to bronchial occlusion has significantly improved, there is persistent compressive atelectasis in the right lower lung secondary to the pleural effusion, bilateral pleural effusions, right lung pneumonia -CT neck showed no acute changes -Steroids GI: Moderate protein calorie malnutrition -PPI -NTR consulted for tube feedings -BR: Senokot S : Hypernatremia (resolved) -FWF 200 ml q4 hr -Monitor intake and output -Renally dose medications -Avoid nephrotoxic medications -Trend BMP ID: Aspiration PNA -S/p Rocephin for 5 days (02/19-02/24) -Monitor WBC and temperature curve Endo: NAD -Avoid hypoglycemia -Accu-Cheks every 6 -Avoid hypoglycemia Heme: NAD -Trend CBC -Transfuse hemoglobin less than 7 -SCDs to BLE while in bed The high probability of a clinically significant, sudden or life threatening deterioration of the [resp] system(s) required my full and direct attention, intervention and personal management. The aggregate critical care time was [60] minutes. This time is in addition to time spent performing reported procedures but includes the following: [x] Data Review and interpretation [x] Patient assessment and monitoring of vital signs [x] Documentation [x] Medication orders and management Disposition Plan: icu Total Time Spent with Patient (Minutes): 60 History Interval history: Patient seen and examined at the bedside. Remains stable on low vent setting, not on any sedation. Open eyes spontaneoulsy and move extremities but does not follow any commands. SB as low as 37 on the monitor this am, VSS. MAIDA overnight Hospitalist Physical - Constitutional Vitals: Temp Pulse Resp BP Pulse Ox 98.9 F 44 L 14 98/46 96 03/03/22 11:41 03/03/22 12:14 03/03/22 12:12 03/03/22 12:14 03/03/22 12:14 General appearance: Present: no acute distress, well-nourished, obese - EENT Eyes: Present: PERRL - Neck Neck: Present: normal ROM - Respiratory Respiratory effort: normal Respiratory: bilateral: rhonchi - Cardiovascular Rhythm: regular Heart Sounds: Present: S1 & S2 - Extremities Extremities: no ischemia, pulses intact, pulses symmetrical Extremity abnormal: edema - Peripheral Assessment Generalized Edema Type: Non-pitting Edema Degree: 1+ Capillary Refill: < 3 seconds Skin Temperature: Warm Peripheral Pulses: within normal limits - Abdominal General gastrointestinal: soft, non-distended, normal bowel sounds - Integumentary Integumentary: Present: warm, dry - Psychiatric Psychiatric: other (Intubated, unresponsive. Not on any sedations) - Neurologic Neurologic: moves all extremities, other (Intubated, unresponsive. Not on any sedations) - Allied Health Allied health notes reviewed: nursing, case management HEART Score - HEART Score Troponin: Troponin T < 0.010 ng/mL (0.00-0.029) 02/18/22 21:02 Results - Labs CBC & Chem 7: 03/03/22 03:54 03/03/22 03:54 Labs: Laboratory Last Values WBC 19.5 K/mm3 (4.5-11.0) H 03/03/22 03:54 RBC 2.79 M/mm3 (3.65-5.03) L 03/03/22 03:54 Hgb 9.0 gm/dl (11.8-15.2) L 03/03/22 03:54 Hct 28.6 % (35.5-45.6) L 03/03/22 03:54 MCV 102 fl (84-94) H 03/03/22 03:54 MCH 32 pg (28-32) 03/03/22 03:54 MCHC 32 % (32-34) 03/03/22 03:54 RDW 16.2 % (13.2-15.2) H 03/03/22 03:54 Plt Count 282 K/mm3 (140-440) 03/03/22 03:54 Lymph % (Auto) 5.5 % (13.4-35.0) L 02/20/22 04:59 Mcdowell % (Auto) 12.1 % (0.0-7.3) H 02/20/22 04:59 Eos % (Auto) 0.2 % (0.0-4.3) 02/20/22 04:59 Baso % (Auto) 0.8 % (0.0-1.8) 02/20/22 04:59 Lymph # (Auto) 0.6 K/mm3 (1.2-5.4) L 02/20/22 04:59 Mcdowell # (Auto) 1.4 K/mm3 (0.0-0.8) H 02/20/22 04:59 Eos # (Auto) 0.0 K/mm3 (0.0-0.4) 02/20/22 04:59 Baso # (Auto) 0.1 K/mm3 (0.0-0.1) 02/20/22 04:59 Add Manual Diff Complete 03/03/22 03:54 Total Counted 100 03/03/22 03:54 Seg Neutrophils % 81.4 % (40.0-70.0) H 02/20/22 04:59 Seg Neuts % (Manual) 95.0 % (40.0-70.0) H 03/03/22 03:54 Band Neutrophils % 0 % 03/03/22 03:54 Lymphocytes % (Manual) 3.0 % (13.4-35.0) L 03/03/22 03:54 Reactive Lymphs % (Man) 0 % 03/03/22 03:54 Monocytes % (Manual) 2.0 % (0.0-7.3) 03/03/22 03:54 Eosinophils % (Manual) 0 % (0.0-4.3) 03/03/22 03:54 Basophils % (Manual) 0 % (0.0-1.8) 03/03/22 03:54 Metamyelocytes % 0 % 03/03/22 03:54 Myelocytes % 0 % 03/03/22 03:54 Promyelocytes % 0 % 03/03/22 03:54 Blast Cells % 0 % 03/03/22 03:54 Nucleated RBC % Not Reportable 03/03/22 03:54 Seg Neutrophils # 9.2 K/mm3 (1.8-7.7) H 02/20/22 04:59 Seg Neutrophils # Man 18.5 K/mm3 (1.8-7.7) H 03/03/22 03:54 Band Neutrophils # 0.0 K/mm3 03/03/22 03:54 Lymphocytes # (Manual) 0.6 K/mm3 (1.2-5.4) L 03/03/22 03:54 Abs React Lymphs (Man) 0.0 K/mm3 03/03/22 03:54 Monocytes # (Manual) 0.4 K/mm3 (0.0-0.8) 03/03/22 03:54 Eosinophils # (Manual) 0.0 K/mm3 (0.0-0.4) 03/03/22 03:54 Basophils # (Manual) 0.0 K/mm3 (0.0-0.1) 03/03/22 03:54 Metamyelocytes # 0.0 K/mm3 03/03/22 03:54 Myelocytes # 0.0 K/mm3 03/03/22 03:54 Promyelocytes # 0.0 K/mm3 03/03/22 03:54 Blast Cells # 0.0 K/mm3 03/03/22 03:54 WBC Morphology Not Reportable 03/03/22 03:54 Hypersegmented Neuts Not Reportable 03/03/22 03:54 Hyposegmented Neuts Not Reportable 03/03/22 03:54 Hypogranular Neuts Not Reportable 03/03/22 03:54 Smudge Cells Not Reportable 03/03/22 03:54 Toxic Granulation Not Reportable 03/03/22 03:54 Toxic Vacuolation Not Reportable 03/03/22 03:54 Dohle Bodies Not Reportable 03/03/22 03:54 Pelger-Huet Anomaly Not Reportable 03/03/22 03:54 Lakshmi Rods Not Reportable 03/03/22 03:54 Platelet Estimate Consistent w auto 03/03/22 03:54 Clumped Platelets Not Reportable 03/03/22 03:54 Plt Clumps, EDTA Not Reportable 03/03/22 03:54 Large Platelets Not Reportable 03/03/22 03:54 Giant Platelets Not Reportable 03/03/22 03:54 Platelet Satelliting Not Reportable 03/03/22 03:54 Plt Morphology Comment Not Reportable 03/03/22 03:54 RBC Morphology Not Reportable 03/03/22 03:54 Dimorphic RBCs Not Reportable 03/03/22 03:54 Polychromasia Not Reportable 03/03/22 03:54 Hypochromasia Not Reportable 03/03/22 03:54 Poikilocytosis Not Reportable 03/03/22 03:54 Anisocytosis 1+ 03/03/22 03:54 Microcytosis Not Reportable 03/03/22 03:54 Macrocytosis Not Reportable 03/03/22 03:54 Spherocytes Not Reportable 03/03/22 03:54 Pappenheimer Bodies Not Reportable 03/03/22 03:54 Sickle Cells Not Reportable 03/03/22 03:54 Target Cells Not Reportable 03/03/22 03:54 Tear Drop Cells Not Reportable 03/03/22 03:54 Ovalocytes Not Reportable 03/03/22 03:54 Helmet Cells Not Reportable 03/03/22 03:54 [place] Bodies Not Reportable 03/03/22 03:54 [place] Rings Not Reportable 03/03/22 03:54 [place] Cells Not Reportable 03/03/22 03:54 Bite Cells Not Reportable 03/03/22 03:54 Crenated Cell Not Reportable 03/03/22 03:54 Elliptocytes Not Reportable 03/03/22 03:54 Acanthocytes (Spur) Not Reportable 03/03/22 03:54 Rouleaux Not Reportable 03/03/22 03:54 Hemoglobin C Crystals Not Reportable 03/03/22 03:54 Schistocytes Not Reportable 03/03/22 03:54 Malaria parasites Not Reportable 03/03/22 03:54 Cash Bodies Not Reportable 03/03/22 03:54 Hem Pathologist Commnt No 03/03/22 03:54 PT 16.9 Sec. (12.2-14.9) H 02/18/22 21:02 INR 1.20 (0.87-1.13) H 02/18/22 21:02 ABG pH 7.411 pH Units (7.350-7.450) 03/02/22 05:18 ABG pCO2 53.2 mm Hg 03/02/22 05:18 ABG pO2 110.5 mm Hg (80.0-90.0) H 03/02/22 05:18 ABG HCO3 33.0 mmol/L (20.0-26.0) H 03/02/22 05:18 ABG O2 Saturation 97.9 % (95.0-99.0) 03/02/22 05:18 ABG O2 Content 11.8 (0.0-44) 03/02/22 05:18 ABG Base Excess 7.4 mmol/L (-2.0-3.0) H 03/02/22 05:18 ABG Hemoglobin 8.6 gm/dl (14.0-18.0) L 03/02/22 05:18 ABG Carboxyhemoglobin 1.4 % (0.0-5.0) 03/02/22 05:18 ABG Methemoglobin 0.6 % (0.0-1.5) 03/02/22 05:18 Oxyhemoglobin 96.0 % (95.0-99.0) 03/02/22 05:18 FiO2 40 % 03/02/22 05:18 Sodium 140 mmol/L (137-145) 03/03/22 03:54 Potassium 4.4 mmol/L (3.6-5.0) 03/03/22 03:54 Chloride 102.2 mmol/L (98-107) 03/03/22 03:54 Carbon Dioxide 29 mmol/L (22-30) 03/03/22 03:54 Anion Gap 13 mmol/L 03/03/22 03:54 BUN 16 mg/dL (9-20) 03/03/22 03:54 Creatinine 0.6 mg/dL (0.8-1.3) L 03/03/22 03:54 Estimated GFR > 60 ml/min 03/03/22 03:54 BUN/Creatinine Ratio 27 % 03/03/22 03:54 Glucose 130 mg/dL (75-100) H 03/03/22 03:54 POC Glucose 139 mg/dL (70-105) H 03/03/22 11:13 Lactic Acid 1.20 mmol/L (0.7-2.0) 02/18/22 21:02 Calcium 8.1 mg/dL (8.4-10.2) L 03/03/22 03:54 Phosphorus 3.20 mg/dL (2.5-4.5) 03/03/22 03:54 Magnesium 2.20 mg/dL (1.7-2.3) 03/03/22 03:54 Total Bilirubin 0.50 mg/dL (0.1-1.2) 02/18/22 21:02 AST 48 units/L (5-40) H 02/18/22 21:02 ALT 64 units/L (7-56) H 02/18/22 21:02 Alkaline Phosphatase 88 units/L (35-129) 02/18/22 21:02 Ammonia 14.0 umol/L (25-60) L 02/18/22 23:22 Troponin T < 0.010 ng/mL (0.00-0.029) 02/18/22 21:02 Total Protein 7.2 g/dL (6.3-8.2) 02/18/22 21:02 Albumin 2.7 g/dL (3.9-5) L 02/18/22 21:02 Albumin/Globulin Ratio 0.6 % 02/18/22 21:02 Urine Color Dark yellow (Yellow) 02/18/22 Unknown Urine Turbidity Clear (Clear) 02/18/22 Unknown Urine pH 7.0 (5.0-7.0) 02/18/22 Unknown Ur Specific [place] 1.015 (1.003-1.030) 02/18/22 Unknown Urine Protein <15 mg/dl mg/dL (Negative) 02/18/22 Unknown Urine Glucose (UA) Negative mg/dL (Negative) 02/18/22 Unknown Urine Ketones Negative mg/dL (Negative) 02/18/22 Unknown Urine Blood Trace (Negative) 02/18/22 Unknown Urine Nitrite Negative (Negative) 02/18/22 Unknown Urine Bilirubin Negative (Negative) 02/18/22 Unknown Urine Urobilinogen < 2.0 mg/dL (<2.0) 02/18/22 Unknown Ur Leukocyte Esterase Negative (Negative) 02/18/22 Unknown Urine WBC (Auto) 2.0 /HPF (0.0-6.0) 02/18/22 Unknown Urine RBC (Auto) 9.0 /HPF (0.0-6.0) 02/18/22 Unknown Urine Mucus Few /HPF 02/18/22 Unknown Urine Opiates Screen Negative 02/18/22 Unknown Urine Methadone Screen Negative 02/18/22 Unknown Ur Barbiturates Screen Negative 02/18/22 Unknown Ur Phencyclidine Scrn Negative 02/18/22 Unknown Ur Amphetamines Screen Negative 02/18/22 Unknown U Benzodiazepines Scrn Negative 02/18/22 Unknown Urine Cocaine Screen Negative 02/18/22 Unknown U Marijuana (THC) Screen Negative 02/18/22 Unknown Drugs of Abuse Note Disclamer 02/18/22 Unknown Plasma/Serum Alcohol < 0.01 % (0-0.07) 02/18/22 21:02 Horowitz/IV: Voiding Method Indwelling Catheter Active Medications - Current Medications Current Medications: Generic Name Dose Route Start Last Admin Trade Name Freq PRN Reason Stop Dose Admin Acetaminophen 650 mg 03/03/22 09:00 Acetaminophen 325 Mg/10.15 Ml Oral Liqd Unit Dose FEEDTUBE Q4H PRN Pain, Mild (1-3); TEMP > 100.4 Albuterol 2.5 mg 02/23/22 16:00 03/03/22 12:19 Albuterol 2.5 Mg/3 Ml Nebu IH 2.5 mg Q4HRT LAZARUS Administration Famotidine 20 mg 02/25/22 10:00 03/03/22 09:47 Famotidine 20 Mg Tab FEEDTUBE 20 mg BID LAZARUS Administration Fentanyl 50 mcg 02/24/22 15:05 Fentanyl 100 Mcg/2 Ml Inj IV Q10MIN PRN ANALGESIA Heparin Sodium (Porcine) 5,000 unit 02/19/22 06:00 03/03/22 06:55 Heparin 5,000 Unit/1 Ml Vial SUB-Q 5,000 unit Q8HR LAZARUS Administration Hydrocortisone Sodium Succinate 100 mg 03/01/22 14:00 03/03/22 06:55 Hydrocortisone Sod Succ 100 Mg/2 Ml Vial IV 100 mg Q8HR LAZARUS Administration Hydrophilic Ointment 1 applic 02/24/22 15:05 Lip Therapy Vaseline TP Q2HR PRN Dry Lips Fentanyl Citrate 2,000 mcg in 100 mls @ 3.16 mls/hr 02/24/22 16:00 02/26/22 02:00 Fentanyl Drip Premix IV 0 mcg/kg/hr TITR LAZARUS 0 mls/hr Titration Protocol 1 MCG/KG/HR Propofol 1,000 mg in 100 mls @ 1.896 mls/hr 02/24/22 16:00 02/28/22 21:30 Diprivan 10 Mg/Ml IV 0 mcg/kg/min TITR LAZARUS 0 mls/hr Titration Protocol 5 MCG/KG/MIN Levetiracetam 500 mg 02/25/22 22:00 03/03/22 09:48 Levetiracetam 500 Mg/5 Ml Oral Liqd FEEDTUBE 500 mg BID LAZARUS Administration Levothyroxine Sodium 25 mcg 02/26/22 06:00 03/03/22 06:56 Levothyroxine 25 Mcg Tab FEEDTUBE 25 mcg QAM@0600 LAZARUS Administration Magnesium Hydroxide 30 ml 02/19/22 02:02 Magnesium Hydroxide (Mom) Oral Liqd Udc PO Q4H PRN Constipation Midodrine 10 mg 02/26/22 08:00 03/03/22 09:48 Midodrine 10 Mg Tab PO 10 mg TID@0800,1200,1600 LAZARUS Administration Morphine Sulfate 2 mg 02/19/22 02:02 Morphine 2 Mg/1 Ml Inj IV Q4H PRN Pain, Moderate (4-6) Morphine Sulfate 4 mg 02/19/22 02:02 Morphine 4 Mg/1 Ml Inj IV Q4H PRN Pain , Severe (7-10) Multi-Ingred Cream/Lotion/Oil/Oint 1 applic 02/24/22 15:05 Mineral Oil/Petrolatum, White Ophth Oint 3.5 Gm OU Q4HR PRN Dry Eye(s) Ondansetron HCl 4 mg 02/19/22 02:02 Ondansetron 4 Mg/2 Ml Inj IV Q8H PRN Nausea And Vomiting Pravastatin Sodium 40 mg 02/25/22 22:00 03/02/22 22:08 Pravastatin 40 Mg Tab FEEDTUBE 40 mg QHS LAZARUS Administration Senna/Docusate Sodium 1 tab 02/24/22 22:00 03/03/22 09:48 Sennosides/Docusate Sodium 8.6/50 Mg Tab FEEDTUBE 1 tab BID LAZARUS Administration Sodium Chloride 10 ml 02/19/22 10:00 03/03/22 09:48 Sodium Chloride 0.9% 10 Ml Flush Syringe IV 10 ml BID LAZARUS Administration Sodium Chloride 10 ml 02/19/22 02:02 02/19/22 06:41 Sodium Chloride 0.9% 10 Ml Flush Syringe IV 10 ml PRN PRN Administration LINE FLUSH Nutrition/Malnutrition Assess - Dietary Evaluation Nutrition/Malnutrition Findings: Nutrition Notes Start: 02/19/22 14:29 Freq: Status: Active Protocol: Document 02/28/22 15:34 TIERRA (Rec: 02/28/22 15:46 TIERRA [email or web address]) Nutrition Notes Initial or Follow up Brief Note Current Diet TF-Vital AF 1.2 Yordy @ 50 ml/hr (from L 02/27). Height 5 ft 3 in Weight 63.2 kg [place] Body Weight (kg) 56.36 BMI 24.7 Weight change and time frame No body weight change reported in 6 days. Weight Status Appropriate Subjective/Other Information RD consult for routine F/U on TF tolerance/continuation. TF continues as prescribed, no further information available at the time, will assess at F /U. Pt was extubated this morning, but soon had to be intubated again, now Pt continues on Mechanical Ventilation, O2 saturation @ 94%, according to Physical Assessment History notes. Percent of energy/protein needs met: Prescribed TF-Vital AF 1.2 Yordy @ 50 ml/hr provides for energy/protein needs (1,450 Kcal/91 g) during LOS, 104% Kcal; 100% AA. #1 Nutrition Diagnosis Inadequate oral intake Comments: Pt was extubated this morning, but soon had to be intubated again, now Pt continues on Mechanical Ventilation, O2 saturation @ 94%, according to Physical Assessment History notes. Diagnosis Progress(for reassessment Continues documentation) Is patient on ventilator? Yes Is Patient Ambulatory and/or Out of Bed No REE-([facility]-confined to bed) 1591.836 Kcal/Kg value to use for calculation 22 Approximate Energy Requirements Using 1390 kcal/Kg Calculation Used for Recommendations Kcal/kg Additional Notes Protein: 1.2-2 g/Kg ABW; 76- 126 g/day. Fluids: 1 ml/Kcal, or as per MD. Nutrition Intervention Nutrition Support: Continue TF-Vital AF 1.2 Yordy @ 50 ml/hr. Flush: 70 ml water Q 4 hr, or as per MD. Kcal 1,450 Protein (gm) 91 Carbohydrates (gm) 134 Fat (gm) 65 Fluid (mL) 980 Fiber (gm) 6 % RDI: 104% Kcal; 100% AA. Goal #1 Provide at least 75% of energy /protein needs through Enteral Feeding during LOS. Goal #2 Adjust the dietary intervention to better serve Pt's needs and clinical conditions during LOS. Follow-Up By: 03/07/22 Additional Comments Continue monitoring on ventilation status, TF tolerance, and BM. <SILVIA BUCHANAN - Last Filed: 03/10/22 11:17> History Interval history: I saw and evaluated the patient. I agree with the findings and the plan of care as documented in the Nurse Practitioner's~note, with the following corrections and additions. Hospitalist Physical - Constitutional Vitals: Temp Pulse Resp BP Pulse Ox 98.8 F 73 15 82/41 98 03/10/22 07:13 03/10/22 08:40 03/10/22 08:40 03/10/22 08:00 03/10/22 08:00 HEART Score - HEART Score Troponin: Troponin T < 0.010 ng/mL (0.00-0.029) 02/18/22 21:02 Results - Labs CBC & Chem 7: 03/10/22 03:57 03/10/22 03:57 Labs: Laboratory Last Values WBC 10.2 K/mm3 (4.5-11.0) 03/10/22 03:57 RBC 2.99 M/mm3 (3.65-5.03) L 03/10/22 03:57 Hgb 9.9 gm/dl (11.8-15.2) L 03/10/22 03:57 Hct 30.3 % (35.5-45.6) L 03/10/22 03:57 MCV 102 fl (84-94) H 03/10/22 03:57 MCH 33 pg (28-32) H 03/10/22 03:57 MCHC 33 % (32-34) 03/10/22 03:57 RDW 16.8 % (13.2-15.2) H 03/10/22 03:57 Plt Count 329 K/mm3 (140-440) 03/10/22 03:57 Lymph % (Auto) 13.3 % (13.4-35.0) L 03/10/22 03:57 Mcdowell % (Auto) 12.5 % (0.0-7.3) H 03/10/22 03:57 Eos % (Auto) 1.4 % (0.0-4.3) 03/10/22 03:57 Baso % (Auto) 0.4 % (0.0-1.8) 03/10/22 03:57 Lymph # (Auto) 1.3 K/mm3 (1.2-5.4) 03/10/22 03:57 Mcdowell # (Auto) 1.3 K/mm3 (0.0-0.8) H 03/10/22 03:57 Eos # (Auto) 0.1 K/mm3 (0.0-0.4) 03/10/22 03:57 Baso # (Auto) 0.0 K/mm3 (0.0-0.1) 03/10/22 03:57 Add Manual Diff Complete 03/03/22 03:54 Total Counted 100 03/03/22 03:54 Seg Neutrophils % 72.4 % (40.0-70.0) H 03/10/22 03:57 Seg Neuts % (Manual) 95.0 % (40.0-70.0) H 03/03/22 03:54 Band Neutrophils % 0 % 03/03/22 03:54 Lymphocytes % (Manual) 3.0 % (13.4-35.0) L 03/03/22 03:54 Reactive Lymphs % (Man) 0 % 03/03/22 03:54 Monocytes % (Manual) 2.0 % (0.0-7.3) 03/03/22 03:54 Eosinophils % (Manual) 0 % (0.0-4.3) 03/03/22 03:54 Basophils % (Manual) 0 % (0.0-1.8) 03/03/22 03:54 Metamyelocytes % 0 % 03/03/22 03:54 Myelocytes % 0 % 03/03/22 03:54 Promyelocytes % 0 % 03/03/22 03:54 Blast Cells % 0 % 03/03/22 03:54 Nucleated RBC % Not Reportable 03/03/22 03:54 Seg Neutrophils # 7.4 K/mm3 (1.8-7.7) 03/10/22 03:57 Seg Neutrophils # Man 18.5 K/mm3 (1.8-7.7) H 03/03/22 03:54 Band Neutrophils # 0.0 K/mm3 03/03/22 03:54 Lymphocytes # (Manual) 0.6 K/mm3 (1.2-5.4) L 03/03/22 03:54 Abs React Lymphs (Man) 0.0 K/mm3 03/03/22 03:54 Monocytes # (Manual) 0.4 K/mm3 (0.0-0.8) 03/03/22 03:54 Eosinophils # (Manual) 0.0 K/mm3 (0.0-0.4) 03/03/22 03:54 Basophils # (Manual) 0.0 K/mm3 (0.0-0.1) 03/03/22 03:54 Metamyelocytes # 0.0 K/mm3 03/03/22 03:54 Myelocytes # 0.0 K/mm3 03/03/22 03:54 Promyelocytes # 0.0 K/mm3 03/03/22 03:54 Blast Cells # 0.0 K/mm3 03/03/22 03:54 WBC Morphology Not Reportable 03/03/22 03:54 Hypersegmented Neuts Not Reportable 03/03/22 03:54 Hyposegmented Neuts Not Reportable 03/03/22 03:54 Hypogranular Neuts Not Reportable 03/03/22 03:54 Smudge Cells Not Reportable 03/03/22 03:54 Toxic Granulation Not Reportable 03/03/22 03:54 Toxic Vacuolation Not Reportable 03/03/22 03:54 Dohle Bodies Not Reportable 03/03/22 03:54 Pelger-Huet Anomaly Not Reportable 03/03/22 03:54 Lakshmi Rods Not Reportable 03/03/22 03:54 Platelet Estimate Consistent w auto 03/03/22 03:54 Clumped Platelets Not Reportable 03/03/22 03:54 Plt Clumps, EDTA Not Reportable 03/03/22 03:54 Large Platelets Not Reportable 03/03/22 03:54 Giant Platelets Not Reportable 03/03/22 03:54 Platelet Satelliting Not Reportable 03/03/22 03:54 Plt Morphology Comment Not Reportable 03/03/22 03:54 RBC Morphology Not Reportable 03/03/22 03:54 Dimorphic RBCs Not Reportable 03/03/22 03:54 Polychromasia Not Reportable 03/03/22 03:54 Hypochromasia Not Reportable 03/03/22 03:54 Poikilocytosis Not Reportable 03/03/22 03:54 Anisocytosis 1+ 03/03/22 03:54 Microcytosis Not Reportable 03/03/22 03:54 Macrocytosis Not Reportable 03/03/22 03:54 Spherocytes Not Reportable 03/03/22 03:54 Pappenheimer Bodies Not Reportable 03/03/22 03:54 Sickle Cells Not Reportable 03/03/22 03:54 Target Cells Not Reportable 03/03/22 03:54 Tear Drop Cells Not Reportable 03/03/22 03:54 Ovalocytes Not Reportable 03/03/22 03:54 Helmet Cells Not Reportable 03/03/22 03:54 [place] Bodies Not Reportable 03/03/22 03:54 [place] Rings Not Reportable 03/03/22 03:54 [place] Cells Not Reportable 03/03/22 03:54 Bite Cells Not Reportable 03/03/22 03:54 Crenated Cell Not Reportable 03/03/22 03:54 Elliptocytes Not Reportable 03/03/22 03:54 Acanthocytes (Spur) Not Reportable 03/03/22 03:54 Rouleaux Not Reportable 03/03/22 03:54 Hemoglobin C Crystals Not Reportable 03/03/22 03:54 Schistocytes Not Reportable 03/03/22 03:54 Malaria parasites Not Reportable 03/03/22 03:54 [place] Bodies Not Reportable 03/03/22 03:54 Hem Pathologist Commnt No 03/03/22 03:54 PT 16.9 Sec. (12.2-14.9) H 02/18/22 21:02 INR 1.20 (0.87-1.13) H 02/18/22 21:02 ABG pH 7.465 pH Units (7.350-7.450) H 03/10/22 04:50 ABG pCO2 45.3 mm Hg 03/10/22 04:50 ABG pO2 89.4 mm Hg (80.0-90.0) 03/10/22 04:50 ABG HCO3 31.9 mmol/L (20.0-26.0) H 03/10/22 04:50 ABG O2 Saturation 97.3 % (95.0-99.0) 03/10/22 04:50 ABG O2 Content 14.9 (0.0-44) 03/10/22 04:50 ABG Base Excess 7.3 mmol/L (-2.0-3.0) H 03/10/22 04:50 ABG Hemoglobin 11.0 gm/dl (14.0-18.0) L 03/10/22 04:50 ABG Carboxyhemoglobin 1.6 % (0.0-5.0) 03/10/22 04:50 ABG Methemoglobin 0.5 % (0.0-1.5) 03/10/22 04:50 Oxyhemoglobin 95.2 % (95.0-99.0) 03/10/22 04:50 FiO2 30 % 03/10/22 04:50 Sodium 137 mmol/L (137-145) 03/10/22 03:57 Potassium 3.4 mmol/L (3.6-5.0) L 03/10/22 03:57 Chloride 101.9 mmol/L (98-107) 03/10/22 03:57 Carbon Dioxide 30 mmol/L (22-30) 03/10/22 03:57 Anion Gap 9 mmol/L 03/10/22 03:57 BUN 18 mg/dL (9-20) 03/10/22 03:57 Creatinine 0.6 mg/dL (0.8-1.3) L 03/10/22 03:57 Estimated GFR > 60 ml/min 03/10/22 03:57 BUN/Creatinine Ratio 30 % 03/10/22 03:57 Glucose 95 mg/dL (75-100) 03/10/22 03:57 POC Glucose 92 mg/dL (70-105) 03/09/22 23:59 Lactic Acid 1.20 mmol/L (0.7-2.0) 02/18/22 21:02 Calcium 8.1 mg/dL (8.4-10.2) L 03/10/22 03:57 Phosphorus 2.00 mg/dL (2.5-4.5) L 03/06/22 04:17 Magnesium 1.90 mg/dL (1.7-2.3) 03/06/22 04:17 Total Bilirubin 0.30 mg/dL (0.1-1.2) 03/10/22 03:57 AST 17 units/L (5-40) 03/10/22 03:57 ALT 18 units/L (7-56) 03/10/22 03:57 Alkaline Phosphatase 89 units/L (35-129) 03/10/22 03:57 Ammonia 14.0 umol/L (25-60) L 02/18/22 23:22 Troponin T < 0.010 ng/mL (0.00-0.029) 02/18/22 21:02 Total Protein 6.6 g/dL (6.3-8.2) 03/10/22 03:57 Albumin 1.9 g/dL (3.9-5) L 03/10/22 03:57 Albumin/Globulin Ratio 0.4 % 03/10/22 03:57 Urine Color Dark yellow (Yellow) 02/18/22 Unknown Urine Turbidity Clear (Clear) 02/18/22 Unknown Urine pH 7.0 (5.0-7.0) 02/18/22 Unknown Ur Specific [place] 1.015 (1.003-1.030) 02/18/22 Unknown Urine Protein <15 mg/dl mg/dL (Negative) 02/18/22 Unknown Urine Glucose (UA) Negative mg/dL (Negative) 02/18/22 Unknown Urine Ketones Negative mg/dL (Negative) 02/18/22 Unknown Urine Blood Trace (Negative) 02/18/22 Unknown Urine Nitrite Negative (Negative) 02/18/22 Unknown Urine Bilirubin Negative (Negative) 02/18/22 Unknown Urine Urobilinogen < 2.0 mg/dL (<2.0) 02/18/22 Unknown Ur Leukocyte Esterase Negative (Negative) 02/18/22 Unknown Urine WBC (Auto) 2.0 /HPF (0.0-6.0) 02/18/22 Unknown Urine RBC (Auto) 9.0 /HPF (0.0-6.0) 02/18/22 Unknown Urine Mucus Few /HPF 02/18/22 Unknown Urine Opiates Screen Negative 02/18/22 Unknown Urine Methadone Screen Negative 02/18/22 Unknown Ur Barbiturates Screen Negative 02/18/22 Unknown Ur Phencyclidine Scrn Negative 02/18/22 Unknown Ur Amphetamines Screen Negative 02/18/22 Unknown U Benzodiazepines Scrn Negative 02/18/22 Unknown Urine Cocaine Screen Negative 02/18/22 Unknown U Marijuana (THC) Screen Negative 02/18/22 Unknown Drugs of Abuse Note Disclamer 02/18/22 Unknown Plasma/Serum Alcohol < 0.01 % (0-0.07) 02/18/22 21:02 Horowitz/IV: Voiding Method Indwelling Catheter Active Medications - Current Medications Current Medications: Generic Name Dose Route Start Last Admin Trade Name Freq PRN Reason Stop Dose Admin Acetaminophen 650 mg 03/03/22 09:00 Acetaminophen 325 Mg/10.15 Ml Oral Liqd Unit Dose FEEDTUBE Q4H PRN Pain, Mild (1-3); TEMP > 100.4 Albuterol 2.5 mg 02/23/22 16:00 03/10/22 08:23 Albuterol 2.5 Mg/3 Ml Nebu IH 2.5 mg Q4HRT LAZARUS Administration Famotidine 20 mg 02/25/22 10:00 03/10/22 10:59 Famotidine 20 Mg Tab FEEDTUBE 20 mg BID LAZARUS Administration Heparin Sodium (Porcine) 5,000 unit 02/19/22 06:00 03/10/22 06:00 Heparin 5,000 Unit/1 Ml Vial SUB-Q 5,000 unit Q8HR LAZARUS Administration Hydrophilic Ointment 1 applic 02/24/22 15:05 Lip Therapy Vaseline TP Q2HR PRN Dry Lips Levetiracetam 500 mg 02/25/22 22:00 03/10/22 10:59 Levetiracetam 500 Mg/5 Ml Oral Liqd FEEDTUBE 500 mg BID LAZARUS Administration Levothyroxine Sodium 25 mcg 02/26/22 06:00 03/10/22 06:00 Levothyroxine 25 Mcg Tab FEEDTUBE 25 mcg QAM@0600 LAZARUS Administration Magnesium Hydroxide 30 ml 02/19/22 02:02 Magnesium Hydroxide (Mom) Oral Liqd Udc PO Q4H PRN Constipation Morphine Sulfate 2 mg 02/19/22 02:02 Morphine 2 Mg/1 Ml Inj IV Q4H PRN Pain, Moderate (4-6) Morphine Sulfate 4 mg 02/19/22 02:02 Morphine 4 Mg/1 Ml Inj IV Q4H PRN Pain , Severe (7-10) Multi-Ingred Cream/Lotion/Oil/Oint 1 applic 02/24/22 15:05 Mineral Oil/Petrolatum, White Ophth Oint 3.5 Gm OU Q4HR PRN Dry Eye(s) Ondansetron HCl 4 mg 02/19/22 02:02 Ondansetron 4 Mg/2 Ml Inj IV Q8H PRN Nausea And Vomiting Potassium Chloride 40 meq 03/10/22 10:44 03/10/22 11:09 Potassium Chloride 20 Meq Packet FEEDTUBE 03/10/22 15:00 40 meq ONCE LAZARUS Administration Pravastatin Sodium 40 mg 02/25/22 22:00 03/09/22 21:16 Pravastatin 40 Mg Tab FEEDTUBE 40 mg QHS LAZARUS Administration Senna/Docusate Sodium 1 tab 02/24/22 22:00 03/10/22 10:59 Sennosides/Docusate Sodium 8.6/50 Mg Tab FEEDTUBE 1 tab BID LAZARUS Administration Sodium Chloride 10 ml 02/19/22 10:00 03/10/22 11:00 Sodium Chloride 0.9% 10 Ml Flush Syringe IV 10 ml BID LAZARUS Administration Sodium Chloride 10 ml 02/19/22 02:02 03/03/22 14:21 Sodium Chloride 0.9% 10 Ml Flush Syringe IV 10 ml PRN PRN Administration LINE FLUSH Nutrition/Malnutrition Assess - Dietary Evaluation Nutrition/Malnutrition Findings: Nutrition Notes Start: 02/19/22 14:29 Freq: Status: Active Protocol: Document 03/07/22 14:34 IVAN (Rec: 03/07/22 14:44 IVAN [id number]) Nutrition Notes Initial or Follow up Reassessment Current Diagnosis Hypertension,Respiratory Failure,Hyperlipidemia Other Pertinent Diagnosis Asp pneu, acute encephalopathy , seizure d/o, partial blindness Current Diet TF - Vital AF 1.2 at 50ml/hr Labs/Tests Reviewed Pertinent Medications Reviewed Height 5 ft 3 in Weight 63.2 kg [place] Body Weight (kg) 56.36 BMI 24.7 Weight change and time frame Unable to obtain current wt; bed scale not working - RN aware Weight Status Appropriate Subjective/Other Information Observed TF infusing at goal rate. Pt tolerating TF and remains on vent support. Pt been intubated since 02/24/22 via ETT. Trach/PEG placement pending. Percent of energy/protein needs met: 90% energy 100% pro Burn Absent Trauma Absent #1 Nutrition Diagnosis Inadequate oral intake Diagnosis Progress(for reassessment Continues documentation) Is patient on ventilator? Yes Is Patient Ambulatory and/or Out of Bed No REE-(Mccurtain-St. Jeor-confined to bed) [phone] Calculation Used for Recommendations Mccurtain-St Jeor Additional Notes Pro needs 1.2-2g/k-126g/ day Fluid needs 1ml/kcal Nutrition Intervention Nutrition Support: Continue Vital AF 1.2 at 50ml/ hr with 75ml water flush q4h. Kcal 1,440 Protein (gm) 90 Carbohydrates (gm) 133 Fat (gm) 65 Fluid (mL) 973 Fiber (gm) 6 Goal #1 TF tolerance Goal #2 TF to meet at least 75% energy and pro needs Follow-Up By: 03/14/22 Additional Comments F/U: stable TF, trach/PEG placement, vent status, wt
--- NOTE | 2022-03-03 14:36 | Progress Note ---
Assessment and Plan 61 y/o male with abnormal CT of chest. 03/03/22: Await ethics eval. CM has spoken with state as well. Daily cuff leaks. Will start to wean steroids tomorrow. Midodrine can cause bradycardia. If continues or worsens will stop. Guarded prognosis. 03/02/22: Continue supportive measures. Await ethics consult before surgery consult for trach and peg. no further need for fluid boluses. Will continue stress dose steroids but have daily air leak checks by RT. Still will need trach, will not attempt extubation again. Guarded prognosis. 03/01/22: Patient is having increased urine output. THis could be the cause of new onset hypotension. Will bolus 2 more liters of LR now and reassess. If this continues may need to work up for SIADH including repeat head CT. Follow up ethics review of case. Will need trach for ventilator liberation. Overall prognosis remains guarded. 02/28/22: Will obtain CT neck, noncontrast to look for airway edema or other possible etiologies for failure. Needs ethics consult as given patient's mental state, inability to clear secretions appropriately, will need trach now that he has failed extubation. However he has no family and no POA so no one to give consent. Continue supportive measures. Guarded prognosis. 02/27/22: Continue improvement of oxygenation. Will drop PEEP down today with goal of being at 6 by in the morning. Will repeat CT scan to confirm improvement as no endobronchial lesion was seen, but also to make sure no parenchymal mass. There was no evidence of extrinsic compression during bronch. Likely extubation tomorrow post CT. 02/26/22: Repeat CXR now. Wean Vent as tolerated. Hopeful extubation soon. Mucous removed. NO ENDOBRONCHIAL LESION/MASS 02/25/22: Bronch tentatively planned for tomorrow with therapeutic scope. Awaiting GI lab to give a time. NPO after midnight. Continue high PEEP 02/24/22: WIll attempt to bronch tomorrow morning. NPO after midnight. Just received word from GI lab they are not able to do bronch tomorrow. Cancel NPO order. Continue to feed patient. Repeat ABG in AM along with CXR. 02/21/22: No new pulm recs for today. Please obtain repeat CXR likely on Thursday. If patient happens to get worse, likely not a candidate for bipap given his weak cough and mental state and inability to communicate. If worsens and requires intubation, will bronch then under emergent circumstances if no POA or family is able to be located. Continue CPT. Will discuss with RT about NT suctioning. 02/20/22: Saw speech while on the floor. Would like patient to be NPO now. Discussed with nurse on floor and with IMS. Same recs pularmin way as yesterday. Would benefit from bronch if able to get consent as this is not emergent. Continue CPT and q shift NT suctioning. Reviewed admission in the past and of note, patient was recently admitted last month and had a CXR done on the 29 of January that was normal. Given this patient's medical history and the history that I obtained from the nursing staff that at the intermediate he was eating solid foods, I suspect that this is aspiration, possibly of a foreign body (most likely food) with atelectasis of the right lower lobe. It is highly unlikely that a mass evolved in size in less than a months time and patient, besides age, has no real risk factors for lung carcinoma. Discussed with the nurse and unfortunately there is no identifiable person that is able to give consent. Bronchoscopy is needed in the case to evaluate to see if lung mass is there vs foreign body, but at this time not able to do. In the meanwhile will recommend the following. 1. Will order CPT with neb therapy 3x daily 2. Suggest maybe NT suctioning q shift. May use nasal trumpet, however do not leave this device in the patient 3. Aspiration precautions 4. Consider speech eval to assess swallowing. Will continue to follow. CCT 31 minutes. Subjective Date of service: 03/03/22 Interval history: no acute events, but not consistent bradycardic. EKG done and shows sinus vanessa. BP stable. Still on Midodrine but no pressors. Objective Vital Signs - 12hr 03/03/22 03/03/22 03/03/22 02:30 02:45 03:00 Temperature Pulse Rate 55 L 53 L 51 L Pulse Rate [ Bilateral Throughout] Pulse Rate [ From Monitor] Pulse Rate [ Posterior Bilateral Throughout] Respiratory 15 14 15 Rate Respiratory Rate [Bilateral Throughout] Respiratory Rate [Posterior Bilateral Throughout] Blood Pressure 121/52 125/51 126/55 O2 Sat by Pulse 96 97 99 Oximetry 08/03/03/22 03/03/22 03:15 03:30 03:35 Temperature 98.8 F Pulse Rate 50 L 50 L Pulse Rate [ Bilateral Throughout] Pulse Rate [ From Monitor] Pulse Rate [ Posterior Bilateral Throughout] Respiratory 14 14 Rate Respiratory Rate [Bilateral Throughout] Respiratory Rate [Posterior Bilateral Throughout] Blood Pressure 126/51 116/53 O2 Sat by Pulse 98 98 Oximetry 03/03/22 03/03/22 03/03/22 03:45 03:49 04:00 Temperature Pulse Rate 51 L 67 54 L Pulse Rate [ 67 Bilateral Throughout] Pulse Rate [ 54 L From Monitor] Pulse Rate [ Posterior Bilateral Throughout] Respiratory 14 14 Rate Respiratory 16 Rate [Bilateral Throughout] Respiratory Rate [Posterior Bilateral Throughout] Blood Pressure 109/80 109/80 116/52 O2 Sat by Pulse 98 98 99 Oximetry 03/03/22 03/03/22 03/03/22 04:15 04:30 04:45 Temperature Pulse Rate 65 74 73 Pulse Rate [ Bilateral Throughout] Pulse Rate [ From Monitor] Pulse Rate [ Posterior Bilateral Throughout] Respiratory 16 17 17 Rate Respiratory Rate [Bilateral Throughout] Respiratory Rate [Posterior Bilateral Throughout] Blood Pressure 127/56 131/67 143/109 O2 Sat by Pulse 99 97 97 Oximetry 03/03/22 03/03/22 03/03/22 05:00 05:15 05:30 Temperature Pulse Rate 73 71 66 Pulse Rate [ Bilateral Throughout] Pulse Rate [ From Monitor] Pulse Rate [ Posterior Bilateral Throughout] Respiratory 15 14 16 Rate Respiratory Rate [Bilateral Throughout] Respiratory Rate [Posterior Bilateral Throughout] Blood Pressure 117/57 128/65 128/55 O2 Sat by Pulse 94 93 94 Oximetry 03/03/22 03/03/22 03/03/22 05:46 06:00 06:15 Temperature Pulse Rate 71 70 68 Pulse Rate [ Bilateral Throughout] Pulse Rate [ From Monitor] Pulse Rate [ Posterior Bilateral Throughout] Respiratory 16 15 15 Rate Respiratory Rate [Bilateral Throughout] Respiratory Rate [Posterior Bilateral Throughout] Blood Pressure 117/64 129/60 118/59 O2 Sat by Pulse 93 94 96 Oximetry 03/03/22 03/03/22 03/03/22 06:30 06:46 07:00 Temperature Pulse Rate 59 L 60 61 Pulse Rate [ Bilateral Throughout] Pulse Rate [ From Monitor] Pulse Rate [ Posterior Bilateral Throughout] Respiratory 15 16 17 Rate Respiratory Rate [Bilateral Throughout] Respiratory Rate [Posterior Bilateral Throughout] Blood Pressure 120/52 129/48 120/53 O2 Sat by Pulse 95 96 97 Oximetry 03/03/22 03/03/22 03/03/22 07:15 07:23 07:30 Temperature 98.8 F Pulse Rate 65 51 L Pulse Rate [ Bilateral Throughout] Pulse Rate [ From Monitor] Pulse Rate [ Posterior Bilateral Throughout] Respiratory 15 12 Rate Respiratory Rate [Bilateral Throughout] Respiratory Rate [Posterior Bilateral Throughout] Blood Pressure 128/59 120/52 O2 Sat by Pulse 97 97 Oximetry 03/03/22 03/03/22 03/03/22 07:45 08:00 08:15 Temperature Pulse Rate 60 53 L 48 L Pulse Rate [ Bilateral Throughout] Pulse Rate [ 53 L From Monitor] Pulse Rate [ Posterior Bilateral Throughout] Respiratory 14 14 14 Rate Respiratory Rate [Bilateral Throughout] Respiratory Rate [Posterior Bilateral Throughout] Blood Pressure 127/61 110/50 101/44 O2 Sat by Pulse 97 95 95 Oximetry 03/03/22 03/03/22 03/03/22 08:20 08:30 08:45 Temperature Pulse Rate 46 L 50 L Pulse Rate [ Bilateral Throughout] Pulse Rate [ From Monitor] Pulse Rate [ 47 L Posterior Bilateral Throughout] Respiratory 14 14 Rate Respiratory Rate [Bilateral Throughout] Respiratory 14 Rate [Posterior Bilateral Throughout] Blood Pressure 94/43 93/44 O2 Sat by Pulse 97 97 Oximetry 03/03/22 03/03/22 03/03/22 09:00 09:15 09:30 Temperature Pulse Rate 50 L 48 L 49 L Pulse Rate [ Bilateral Throughout] Pulse Rate [ From Monitor] Pulse Rate [ Posterior Bilateral Throughout] Respiratory 14 14 14 Rate Respiratory Rate [Bilateral Throughout] Respiratory Rate [Posterior Bilateral Throughout] Blood Pressure 92/42 103/45 91/42 O2 Sat by Pulse 95 96 95 Oximetry 03/03/22 03/03/22 03/03/22 09:46 10:00 10:15 Temperature Pulse Rate 70 67 69 Pulse Rate [ Bilateral Throughout] Pulse Rate [ From Monitor] Pulse Rate [ Posterior Bilateral Throughout] Respiratory 15 14 14 Rate Respiratory Rate [Bilateral Throughout] Respiratory Rate [Posterior Bilateral Throughout] Blood Pressure 121/62 123/55 120/61 O2 Sat by Pulse 98 96 96 Oximetry 03/03/22 03/03/22 03/03/22 10:30 10:46 11:00 Temperature Pulse Rate 61 72 57 L Pulse Rate [ Bilateral Throughout] Pulse Rate [ From Monitor] Pulse Rate [ Posterior Bilateral Throughout] Respiratory 15 18 14 Rate Respiratory Rate [Bilateral Throughout] Respiratory Rate [Posterior Bilateral Throughout] Blood Pressure 126/56 132/70 128/61 O2 Sat by Pulse 96 98 96 Oximetry 03/03/22 03/03/22 03/03/22 11:15 11:30 11:41 Temperature 98.9 F Pulse Rate 65 45 L Pulse Rate [ Bilateral Throughout] Pulse Rate [ From Monitor] Pulse Rate [ Posterior Bilateral Throughout] Respiratory 16 14 Rate Respiratory Rate [Bilateral Throughout] Respiratory Rate [Posterior Bilateral Throughout] Blood Pressure 124/63 126/55 O2 Sat by Pulse 97 97 Oximetry 03/03/22 03/03/22 03/03/22 11:45 12:00 12:12 Temperature Pulse Rate 46 L 54 L Pulse Rate [ Bilateral Throughout] Pulse Rate [ 54 L From Monitor] Pulse Rate [ 45 L Posterior Bilateral Throughout] Respiratory 14 16 Rate Respiratory Rate [Bilateral Throughout] Respiratory 14 Rate [Posterior Bilateral Throughout] Blood Pressure 117/59 104/49 O2 Sat by Pulse 97 97 Oximetry 03/03/22 03/03/22 03/03/22 12:14 12:15 12:30 Temperature Pulse Rate 44 L 44 L 44 L Pulse Rate [ Bilateral Throughout] Pulse Rate [ From Monitor] Pulse Rate [ Posterior Bilateral Throughout] Respiratory 14 14 Rate Respiratory Rate [Bilateral Throughout] Respiratory Rate [Posterior Bilateral Throughout] Blood Pressure 98/46 98/46 103/48 O2 Sat by Pulse 96 96 98 Oximetry 03/03/22 03/03/22 12:46 13:00 Temperature Pulse Rate 59 L 56 L Pulse Rate [ Bilateral Throughout] Pulse Rate [ From Monitor] Pulse Rate [ Posterior Bilateral Throughout] Respiratory 10 L 11 L Rate Respiratory Rate [Bilateral Throughout] Respiratory Rate [Posterior Bilateral Throughout] Blood Pressure 126/68 124/57 O2 Sat by Pulse 100 98 Oximetry Constitutional: other (on NRB) Eyes: non-icteric ENT: oropharynx moist Neck: supple Effort: normal Ascultation: Bilateral: diminished breath sounds, rhonchi Cardiovascular: regular rate and rhythm Gastrointestinal: normoactive bowel sounds, soft, non-tender (on o2 vest in place) Integumentary: normal Extremities: no cyanosis Neurologic: other (awake) CBC and BMP: 03/03/22 03:54 03/03/22 03:54 ABG, PT/INR, D-dimer: ABG ABG pH 7.411 pH Units (7.350-7.450) 03/02/22 05:18 ABG pCO2 53.2 mm Hg 03/02/22 05:18 ABG pO2 110.5 mm Hg (80.0-90.0) H 03/02/22 05:18 ABG O2 Saturation 97.9 % (95.0-99.0) 03/02/22 05:18 PT/INR, D-dimer PT 16.9 Sec. (12.2-14.9) H 02/18/22 21:02 INR 1.20 (0.87-1.13) H 02/18/22 21:02 Abnormal lab findings: Abnormal Labs 02/18/22 02/18/22 02/18/22 19:34 21:02 21:02 WBC RBC Hgb Hct MCV 101 H MCH 34 H RDW 16.1 H Lymph % (Auto) [place] % (Auto) 12.4 H Lymph # (Auto) [place] # (Auto) 1.2 H Seg Neutrophils % 73.0 H Seg Neuts % (Manual) Lymphocytes % (Manual) Seg Neutrophils # Seg Neutrophils # Man Lymphocytes # (Manual) PT 16.9 H INR 1.20 H ABG pH ABG pO2 ABG HCO3 ABG O2 Saturation ABG Base Excess ABG Hemoglobin Oxyhemoglobin Sodium Potassium Chloride Carbon Dioxide BUN Creatinine Glucose POC Glucose 116 H Calcium Phosphorus AST ALT Ammonia Albumin 02/18/22 02/18/22 02/18/22 21:02 22:45 23:22 WBC RBC Hgb Hct MCV MCH RDW Lymph % (Auto) [place] % (Auto) Lymph # (Auto) [place] # (Auto) Seg Neutrophils % Seg Neuts % (Manual) Lymphocytes % (Manual) Seg Neutrophils # Seg Neutrophils # Man Lymphocytes # (Manual) PT INR ABG pH ABG pO2 55.6 L ABG HCO3 28.4 H ABG O2 Saturation 91.5 L ABG Base Excess 3.8 H ABG Hemoglobin 13.2 L Oxyhemoglobin 89.6 L Sodium Potassium 5.1 H Chloride Carbon Dioxide BUN Creatinine Glucose 102 H POC Glucose Calcium Phosphorus AST 48 H ALT 64 H Ammonia 14.0 L Albumin 2.7 L 02/20/22 02/20/22 02/23/22 04:59 04:59 06:29 WBC 11.4 H RBC Hgb Hct MCV 103 H MCH 33 H RDW 16.5 H Lymph % (Auto) 5.5 L [place] % (Auto) 12.1 H Lymph # (Auto) 0.6 L [place] # (Auto) 1.4 H Seg Neutrophils % 81.4 H Seg Neuts % (Manual) Lymphocytes % (Manual) Seg Neutrophils # 9.2 H Seg Neutrophils # Man Lymphocytes # (Manual) PT INR ABG pH ABG pO2 ABG HCO3 ABG O2 Saturation ABG Base Excess ABG Hemoglobin Oxyhemoglobin Sodium Potassium Chloride Carbon Dioxide BUN Creatinine Glucose POC Glucose 113 H Calcium 8.2 L Phosphorus AST ALT Ammonia Albumin 02/23/22 02/23/22 02/24/22 11:22 16:10 00:02 WBC RBC Hgb Hct MCV MCH RDW Lymph % (Auto) [place] % (Auto) Lymph # (Auto) [place] # (Auto) Seg Neutrophils % Seg Neuts % (Manual) Lymphocytes % (Manual) Seg Neutrophils # Seg Neutrophils # Man Lymphocytes # (Manual) PT INR ABG pH ABG pO2 ABG HCO3 ABG O2 Saturation ABG Base Excess ABG Hemoglobin Oxyhemoglobin Sodium Potassium Chloride Carbon Dioxide BUN Creatinine Glucose POC Glucose 108 H 115 H 109 H Calcium Phosphorus AST ALT Ammonia Albumin 02/24/22 02/24/22 02/24/22 11:05 11:05 13:20 WBC RBC 3.55 L Hgb Hct MCV 100 H MCH 34 H RDW 15.6 H Lymph % (Auto) [place] % (Auto) Lymph # (Auto) [place] # (Auto) Seg Neutrophils % Seg Neuts % (Manual) Lymphocytes % (Manual) Seg Neutrophils # Seg Neutrophils # Man Lymphocytes # (Manual) PT INR ABG pH ABG pO2 ABG HCO3 ABG O2 Saturation ABG Base Excess ABG Hemoglobin Oxyhemoglobin Sodium 146 H Potassium 3.2 L D Chloride 108.4 H Carbon Dioxide BUN Creatinine 0.5 L Glucose POC Glucose 111 H Calcium 7.9 L Phosphorus 2.20 L AST ALT Ammonia Albumin 02/24/22 02/24/22 02/24/22 16:30 17:03 20:25 WBC RBC Hgb Hct MCV MCH RDW Lymph % (Auto) [place] % (Auto) Lymph # (Auto) [place] # (Auto) Seg Neutrophils % Seg Neuts % (Manual) Lymphocytes % (Manual) Seg Neutrophils # Seg Neutrophils # Man Lymphocytes # (Manual) PT INR ABG pH 7.319 L ABG pO2 65.3 L ABG HCO3 31.3 H ABG O2 Saturation 92.2 L ABG Base Excess 3.8 H ABG Hemoglobin 12.0 L Oxyhemoglobin 90.3 L Sodium Potassium Chloride 107.9 H Carbon Dioxide BUN 8 L Creatinine 0.4 L Glucose POC Glucose 108 H Calcium 7.6 L Phosphorus 4.60 H D AST ALT Ammonia Albumin 02/25/22 02/25/22 02/25/22 04:12 04:12 05:05 WBC RBC 3.07 L Hgb 10.2 L Hct 31.5 L MCV 103 H MCH 33 H RDW 15.6 H Lymph % (Auto) [place] % (Auto) Lymph # (Auto) [place] # (Auto) Seg Neutrophils % Seg Neuts % (Manual) Lymphocytes % (Manual) Seg Neutrophils # Seg Neutrophils # Man Lymphocytes # (Manual) PT INR ABG pH ABG pO2 ABG HCO3 32.5 H ABG O2 Saturation ABG Base Excess 5.6 H ABG Hemoglobin 10.8 L Oxyhemoglobin 94.8 L Sodium Potassium 3.5 L Chloride 107.7 H Carbon Dioxide BUN Creatinine 0.5 L Glucose POC Glucose Calcium 7.0 L Phosphorus AST ALT Ammonia Albumin 02/25/22 02/25/22 02/26/22 12:05 18:33 00:07 WBC RBC Hgb Hct MCV MCH RDW Lymph % (Auto) [place] % (Auto) Lymph # (Auto) [place] # (Auto) Seg Neutrophils % Seg Neuts % (Manual) Lymphocytes % (Manual) Seg Neutrophils # Seg Neutrophils # Man Lymphocytes # (Manual) PT INR ABG pH ABG pO2 ABG HCO3 ABG O2 Saturation ABG Base Excess ABG Hemoglobin Oxyhemoglobin Sodium Potassium Chloride Carbon Dioxide BUN Creatinine Glucose POC Glucose 127 H 125 H 114 H Calcium Phosphorus AST ALT Ammonia Albumin 02/26/22 02/26/22 02/26/22 03:30 04:42 11:34 WBC RBC Hgb Hct MCV MCH RDW Lymph % (Auto) [place] % (Auto) Lymph # (Auto) [place] # (Auto) Seg Neutrophils % Seg Neuts % (Manual) Lymphocytes % (Manual) Seg Neutrophils # Seg Neutrophils # Man Lymphocytes # (Manual) PT INR ABG pH ABG pO2 143.2 H ABG HCO3 33.2 H ABG O2 Saturation ABG Base Excess 6.5 H ABG Hemoglobin 9.4 L Oxyhemoglobin Sodium Potassium Chloride Carbon Dioxide 32 H BUN Creatinine 0.7 L Glucose POC Glucose 114 H Calcium 8.0 L Phosphorus AST ALT Ammonia Albumin 02/26/22 02/26/22 02/27/22 18:17 23:37 04:19 WBC 13.7 H RBC 2.78 L Hgb 9.3 L Hct 28.5 L MCV 103 H MCH 33 H RDW 16.3 H Lymph % (Auto) [place] % (Auto) Lymph # (Auto) [place] # (Auto) Seg Neutrophils % Seg Neuts % (Manual) Lymphocytes % (Manual) Seg Neutrophils # Seg Neutrophils # Man Lymphocytes # (Manual) PT INR ABG pH ABG pO2 ABG HCO3 ABG O2 Saturation ABG Base Excess ABG Hemoglobin Oxyhemoglobin Sodium Potassium Chloride Carbon Dioxide BUN Creatinine Glucose POC Glucose 111 H 117 H Calcium Phosphorus AST ALT Ammonia Albumin 02/27/22 02/27/22 02/27/22 04:19 04:35 05:27 WBC RBC Hgb Hct MCV MCH RDW Lymph % (Auto) [place] % (Auto) Lymph # (Auto) [place] # (Auto) Seg Neutrophils % Seg Neuts % (Manual) Lymphocytes % (Manual) Seg Neutrophils # Seg Neutrophils # Man Lymphocytes # (Manual) PT INR ABG pH ABG pO2 96.3 H ABG HCO3 34.9 H ABG O2 Saturation ABG Base Excess 8.1 H ABG Hemoglobin Oxyhemoglobin Sodium Potassium Chloride Carbon Dioxide 31 H BUN Creatinine 0.6 L Glucose 107 H POC Glucose 133 H Calcium 7.8 L Phosphorus AST ALT Ammonia Albumin 02/27/22 02/27/22 02/28/22 11:15 23:35 03:38 WBC 13.3 H RBC 3.05 L Hgb 10.2 L Hct 30.7 L MCV 101 H MCH 33 H RDW 16.1 H Lymph % (Auto) [place] % (Auto) Lymph # (Auto) [place] # (Auto) Seg Neutrophils % Seg Neuts % (Manual) Lymphocytes % (Manual) Seg Neutrophils # Seg Neutrophils # Man Lymphocytes # (Manual) PT INR ABG pH ABG pO2 ABG HCO3 ABG O2 Saturation ABG Base Excess ABG Hemoglobin Oxyhemoglobin Sodium Potassium Chloride Carbon Dioxide BUN Creatinine Glucose POC Glucose 129 H 122 H Calcium Phosphorus AST ALT Ammonia Albumin 02/28/22 02/28/22 02/28/22 04:50 05:30 09:30 WBC RBC Hgb Hct MCV MCH RDW Lymph % (Auto) [place] % (Auto) Lymph # (Auto) [place] # (Auto) Seg Neutrophils % Seg Neuts % (Manual) Lymphocytes % (Manual) Seg Neutrophils # Seg Neutrophils # Man Lymphocytes # (Manual) PT INR ABG pH 7.451 H 7.488 H ABG pO2 77.0 L ABG HCO3 37.1 H 34.6 H ABG O2 Saturation ABG Base Excess 11.5 H 10.1 H ABG Hemoglobin 10.1 L 10.0 L Oxyhemoglobin Sodium Potassium Chloride Carbon Dioxide BUN Creatinine Glucose POC Glucose 121 H Calcium Phosphorus AST ALT Ammonia Albumin 02/28/22 02/28/22 03/01/22 11:36 23:07 04:27 WBC 12.5 H RBC 2.85 L Hgb 9.5 L Hct 28.6 L MCV 101 H MCH 33 H RDW 15.7 H Lymph % (Auto) [place] % (Auto) Lymph # (Auto) [place] # (Auto) Seg Neutrophils % Seg Neuts % (Manual) Lymphocytes % (Manual) Seg Neutrophils # Seg Neutrophils # Man Lymphocytes # (Manual) PT INR ABG pH ABG pO2 ABG HCO3 ABG O2 Saturation ABG Base Excess ABG Hemoglobin Oxyhemoglobin Sodium Potassium Chloride Carbon Dioxide BUN Creatinine Glucose POC Glucose 112 H 107 H Calcium Phosphorus AST ALT Ammonia Albumin 03/01/22 03/01/22 03/01/22 04:27 05:05 11:29 WBC RBC Hgb Hct MCV MCH RDW Lymph % (Auto) [place] % (Auto) Lymph # (Auto) [place] # (Auto) Seg Neutrophils % Seg Neuts % (Manual) Lymphocytes % (Manual) Seg Neutrophils # Seg Neutrophils # Man Lymphocytes # (Manual) PT INR ABG pH ABG pO2 ABG HCO3 ABG O2 Saturation ABG Base Excess ABG Hemoglobin Oxyhemoglobin Sodium 147 H D Potassium Chloride Carbon Dioxide 34 H BUN Creatinine 0.6 L Glucose 128 H POC Glucose 119 H 121 H Calcium 7.9 L Phosphorus AST ALT Ammonia Albumin 03/01/22 03/01/22 03/02/22 16:15 23:57 05:18 WBC RBC Hgb Hct MCV MCH RDW Lymph % (Auto) [place] % (Auto) Lymph # (Auto) [place] # (Auto) Seg Neutrophils % Seg Neuts % (Manual) Lymphocytes % (Manual) Seg Neutrophils # Seg Neutrophils # Man Lymphocytes # (Manual) PT INR ABG pH ABG pO2 110.5 H ABG HCO3 33.0 H ABG O2 Saturation ABG Base Excess 7.4 H ABG Hemoglobin 8.6 L Oxyhemoglobin Sodium Potassium Chloride Carbon Dioxide BUN Creatinine Glucose POC Glucose 134 H 140 H Calcium Phosphorus AST ALT Ammonia Albumin 03/02/22 03/02/22 03/02/22 05:53 09:04 09:04 WBC 15.0 H RBC 3.00 L Hgb 9.7 L Hct 30.7 L MCV 102 H MCH RDW 16.6 H Lymph % (Auto) [place] % (Auto) Lymph # (Auto) [place] # (Auto) Seg Neutrophils % Seg Neuts % (Manual) Lymphocytes % (Manual) Seg Neutrophils # Seg Neutrophils # Man Lymphocytes # (Manual) PT INR ABG pH ABG pO2 ABG HCO3 ABG O2 Saturation ABG Base Excess ABG Hemoglobin Oxyhemoglobin Sodium Potassium Chloride Carbon Dioxide 31 H BUN Creatinine 0.6 L Glucose 157 H POC Glucose 158 H Calcium 7.9 L Phosphorus AST ALT Ammonia Albumin 03/02/22 03/02/22 03/02/22 11:36 16:25 23:17 WBC RBC Hgb Hct MCV MCH RDW Lymph % (Auto) [place] % (Auto) Lymph # (Auto) [place] # (Auto) Seg Neutrophils % Seg Neuts % (Manual) Lymphocytes % (Manual) Seg Neutrophils # Seg Neutrophils # Man Lymphocytes # (Manual) PT INR ABG pH ABG pO2 ABG HCO3 ABG O2 Saturation ABG Base Excess ABG Hemoglobin Oxyhemoglobin Sodium Potassium Chloride Carbon Dioxide BUN Creatinine Glucose POC Glucose 160 H 132 H 157 H Calcium Phosphorus AST ALT Ammonia Albumin 03/03/22 03/03/22 03/03/22 03:54 03:54 05:27 WBC 19.5 H RBC 2.79 L Hgb 9.0 L Hct 28.6 L MCV 102 H MCH RDW 16.2 H Lymph % (Auto) [place] % (Auto) Lymph # (Auto) [place] # (Auto) Seg Neutrophils % Seg Neuts % (Manual) 95.0 H Lymphocytes % (Manual) 3.0 L Seg Neutrophils # Seg Neutrophils # Man 18.5 H Lymphocytes # (Manual) 0.6 L PT INR ABG pH ABG pO2 ABG HCO3 ABG O2 Saturation ABG Base Excess ABG Hemoglobin Oxyhemoglobin Sodium Potassium Chloride Carbon Dioxide BUN Creatinine 0.6 L Glucose 130 H POC Glucose 149 H Calcium 8.1 L Phosphorus AST ALT Ammonia Albumin 03/03/22 11:13 WBC RBC Hgb Hct MCV MCH RDW Lymph % (Auto) [place] % (Auto) Lymph # (Auto) [place] # (Auto) Seg Neutrophils % Seg Neuts % (Manual) Lymphocytes % (Manual) Seg Neutrophils # Seg Neutrophils # Man Lymphocytes # (Manual) PT INR ABG pH ABG pO2 ABG HCO3 ABG O2 Saturation ABG Base Excess ABG Hemoglobin Oxyhemoglobin Sodium Potassium Chloride Carbon Dioxide BUN Creatinine Glucose POC Glucose 139 H Calcium Phosphorus AST ALT Ammonia Albumin
[2022-03-03] MEDS: PRAVASTATIN 40 MG TAB FEEDTUBE SCH (21:23)
[2022-03-04] MEDS: ALBUTEROL 2.5 MG/3 ML NEBU IH SCH ×5 (04:08→20:47)
[2022-03-04] MEDS: LEVOTHYROXINE 25 MCG TAB FEEDTUBE SCH (06:00)
[2022-03-04] MEDS: HEPARIN 5,000 UNIT/1 ML VIAL SUB-Q SCH ×3 (06:00→22:27)
[2022-03-04 06:44] LABS: Hematocrit 28.8 % (35.5-45.6); Hemoglobin 9.3 gm/dl (11.8-15.2); Mean Corpuscular HGB Conc 32 % (32-34); Mean Corpuscular Volume 102 fl (84-94); Platelet Count 320 K/mm3 (140-440); Red Blood Count 2.81 M/mm3 (3.65-5.03); Red Cell Distribution Width 16.7 % (13.2-15.2)
[2022-03-04] MEDS: MIDODRINE 10 MG TAB PO SCH (08:15)
[2022-03-04 08:40] LABS: Blood Urea Nitrogen 20 mg/dL (9-20); Calcium 8.3 mg/dL (8.4-10.2); Hemolysis Index 15
[2022-03-04 08:50] LABS: BUN/Creatinine Ratio 29
[2022-03-04] MEDS: FAMOTIDINE 20 MG TAB FEEDTUBE SCH ×2 (10:44→22:27)
[2022-03-04] MEDS: SENNOSIDES/DOCUSATE SODIUM 8.6/50 MG TAB FEEDTUBE SCH ×2 (10:44→22:27)
[2022-03-04] MEDS: levETIRAcetam 500 MG/5 ML ORAL LIQD FEEDTUBE SCH ×2 (10:44→22:27)
--- NOTE | 2022-03-04 12:11 | Progress Note ---
Assessment and Plan 61 y/o male with abnormal CT of chest. 03/04/22: Follow up with ethics later this afternoon. Spoke with RT and patient does have cuff leak, will stop steroids. Stopping midodrine as BP is stable and bradycardia likely from this. 03/03/22: Await ethics eval. CM has spoken with state as well. Daily cuff leaks. Will start to wean steroids tomorrow. Midodrine can cause bradycardia. If continues or worsens will stop. Guarded prognosis. 03/02/22: Continue supportive measures. Await ethics consult before surgery consult for trach and peg. no further need for fluid boluses. Will continue stress dose steroids but have daily air leak checks by RT. Still will need trach, will not attempt extubation again. Guarded prognosis. 03/01/22: Patient is having increased urine output. THis could be the cause of new onset hypotension. Will bolus 2 more liters of LR now and reassess. If this continues may need to work up for SIADH including repeat head CT. Follow up ethics review of case. Will need trach for ventilator liberation. Overall prognosis remains guarded. 02/28/22: Will obtain CT neck, noncontrast to look for airway edema or other possible etiologies for failure. Needs ethics consult as given patient's mental state, inability to clear secretions appropriately, will need trach now that he has failed extubation. However he has no family and no POA so no one to give consent. Continue supportive measures. Guarded prognosis. 02/27/22: Continue improvement of oxygenation. Will drop PEEP down today with g oal of being at 6 by in the morning. Will repeat CT scan to confirm improvement as no endobronchial lesion was seen, but also to make sure no parenchymal mass. There was no evidence of extrinsic compression during bronch. Likely extubation tomorrow post CT. 02/26/22: Repeat CXR now. Wean Vent as tolerated. Hopeful extubation soon. Mucous removed. NO ENDOBRONCHIAL LESION/MASS 02/25/22: Bronch tentatively planned for tomorrow with therapeutic scope. Awaiting GI lab to give a time. NPO after midnight. Continue high PEEP 02/24/22: WIll attempt to bronch tomorrow morning. NPO after midnight. Just received word from GI lab they are not able to do bronch tomorrow. Cancel NPO order. Continue to feed patient. Repeat ABG in AM along with CXR. 02/21/22: No new pulm recs for today. Please obtain repeat CXR likely on Thursday. If patient happens to get worse, likely not a candidate for bipap given his weak cough and mental state and inability to communicate. If worsens and requires intubation, will bronch then under emergent circumstances if no POA or family is able to be located. Continue CPT. Will discuss with RT about NT suctioning. 02/20/22: Saw speech while on the floor. Would like patient to be NPO now. Discussed with nurse on floor and with IMS. Same recs pulm way as yesterday. Would benefit from bronch if able to get consent as this is not emergent. Continue CPT and q shift NT suctioning. Reviewed admission in the past and of note, patient was recently admitted last month and had a CXR done on the 29 of January that was normal. Given this patient's medical history and the history that I obtained from the nursing staff that at the detention he was eating solid foods, I suspect that this is aspiration, possibly of a foreign body (most likely food) with atelectasis of the right lower lobe. It is highly unlikely that a mass evolved in size in less than a months time and patient, besides age, has no real risk factors for lung carcinoma. Discussed with the nurse and unfortunately there is no identifiable person that is able to give consent. Bronchoscopy is needed in the case to evaluate to see if lung mass is there vs foreign body, but at this time not able to do. In the meanwhile will recommend the following. 1. Will order CPT with neb therapy 3x daily 2. Suggest maybe NT suctioning q shift. May use nasal trumpet, however do not leave this device in the patient 3. Aspiration precautions 4. Consider speech eval to assess swallowing. Will continue to follow. CCT 31 minutes. Subjective Date of service: 03/04/22 Interval history: No acute events. spoke with ethics team this am. Objective Vital Signs - 12hr 03/04/22 03/04/22 03/04/22 00:16 00:30 00:46 Temperature Pulse Rate 43 L 41 L 43 L Pulse Rate [ Bilateral Throughout] Pulse Rate [ From Monitor] Pulse Rate [ Posterior Bilateral Throughout] Respiratory 14 15 13 Rate Respiratory Rate [Bilateral Throughout] Respiratory Rate [Posterior Bilateral Throughout] Blood Pressure 109/47 113/50 113/50 O2 Sat by Pulse 98 97 97 Oximetry 03/04/22 03/04/22 03/04/22 01:00 01:16 01:30 Temperature Pulse Rate 43 L 63 44 L Pulse Rate [ Bilateral Throughout] Pulse Rate [ From Monitor] Pulse Rate [ Posterior Bilateral Throughout] Respiratory 12 13 14 Rate Respiratory Rate [Bilateral Throughout] Respiratory Rate [Posterior Bilateral Throughout] Blood Pressure 114/51 114/51 117/52 O2 Sat by Pulse 99 99 98 Oximetry 03/04/22 03/04/22 03/04/22 01:46 02:00 02:16 Temperature Pulse Rate 45 L 46 L 52 L Pulse Rate [ Bilateral Throughout] Pulse Rate [ From Monitor] Pulse Rate [ Posterior Bilateral Throughout] Respiratory 14 14 15 Rate Respiratory Rate [Bilateral Throughout] Respiratory Rate [Posterior Bilateral Throughout] Blood Pressure 117/52 130/59 130/59 O2 Sat by Pulse 97 98 96 Oximetry 03/04/22 03/04/22 03/04/22 02:30 02:46 03:00 Temperature Pulse Rate 51 L 45 L 44 L Pulse Rate [ Bilateral Throughout] Pulse Rate [ From Monitor] Pulse Rate [ Posterior Bilateral Throughout] Respiratory 14 14 14 Rate Respiratory Rate [Bilateral Throughout] Respiratory Rate [Posterior Bilateral Throughout] Blood Pressure 132/63 132/63 127/53 O2 Sat by Pulse 97 96 97 Oximetry 03/04/22 03/04/22 03/04/22 03:16 03:30 03:46 Temperature Pulse Rate 45 L 44 L 52 L Pulse Rate [ Bilateral Throughout] Pulse Rate [ From Monitor] Pulse Rate [ Posterior Bilateral Throughout] Respiratory 14 14 14 Rate Respiratory Rate [Bilateral Throughout] Respiratory Rate [Posterior Bilateral Throughout] Blood Pressure 127/53 125/54 125/54 O2 Sat by Pulse 95 96 95 Oximetry 03/04/22 03/04/22 03/04/22 04:00 04:16 04:30 Temperature 98.4 F Pulse Rate 48 L 52 L 53 L Pulse Rate [ 53 L Bilateral Throughout] Pulse Rate [ 49 L From Monitor] Pulse Rate [ 50 L Posterior Bilateral Throughout] Respiratory 14 14 15 Rate Respiratory 14 Rate [Bilateral Throughout] Respiratory 14 Rate [Posterior Bilateral Throughout] Blood Pressure 125/54 123/94 123/94 O2 Sat by Pulse 95 94 94 Oximetry 03/04/22 03/04/22 03/04/22 04:46 05:00 05:16 Temperature Pulse Rate 61 60 65 Pulse Rate [ Bilateral Throughout] Pulse Rate [ From Monitor] Pulse Rate [ Posterior Bilateral Throughout] Respiratory 15 15 15 Rate Respiratory Rate [Bilateral Throughout] Respiratory Rate [Posterior Bilateral Throughout] Blood Pressure 124/55 124/55 124/55 O2 Sat by Pulse 91 90 97 Oximetry 03/04/22 03/04/22 03/04/22 05:30 05:46 06:00 Temperature Pulse Rate 55 L 59 L 58 L Pulse Rate [ Bilateral Throughout] Pulse Rate [ From Monitor] Pulse Rate [ Posterior Bilateral Throughout] Respiratory 14 18 17 Rate Respiratory Rate [Bilateral Throughout] Respiratory Rate [Posterior Bilateral Throughout] Blood Pressure 130/61 130/61 143/62 O2 Sat by Pulse 98 96 96 Oximetry 03/04/22 03/04/22 03/04/22 06:16 06:30 06:46 Temperature Pulse Rate 49 L 51 L 49 L Pulse Rate [ Bilateral Throughout] Pulse Rate [ From Monitor] Pulse Rate [ Posterior Bilateral Throughout] Respiratory 14 17 14 Rate Respiratory Rate [Bilateral Throughout] Respiratory Rate [Posterior Bilateral Throughout] Blood Pressure 143/62 132/53 132/53 O2 Sat by Pulse 96 96 96 Oximetry 03/04/22 03/04/22 03/04/22 07:00 07:16 07:18 Temperature 99.0 F Pulse Rate 52 L 50 L Pulse Rate [ Bilateral Throughout] Pulse Rate [ From Monitor] Pulse Rate [ Posterior Bilateral Throughout] Respiratory 22 14 Rate Respiratory Rate [Bilateral Throughout] Respiratory Rate [Posterior Bilateral Throughout] Blood Pressure 135/61 135/61 O2 Sat by Pulse 97 97 Oximetry 03/04/22 03/04/22 03/04/22 07:30 07:46 08:00 Temperature Pulse Rate 58 L 50 L 48 L Pulse Rate [ Bilateral Throughout] Pulse Rate [ From Monitor] Pulse Rate [ Posterior Bilateral Throughout] Respiratory 14 14 14 Rate Respiratory Rate [Bilateral Throughout] Respiratory Rate [Posterior Bilateral Throughout] Blood Pressure 138/64 138/64 129/54 O2 Sat by Pulse 96 96 95 Oximetry 03/04/22 03/04/22 03/04/22 08:13 08:16 08:28 Temperature Pulse Rate 65 66 Pulse Rate [ Bilateral Throughout] Pulse Rate [ From Monitor] Pulse Rate [ 80 Posterior Bilateral Throughout] Respiratory 15 Rate Respiratory Rate [Bilateral Throughout] Respiratory 18 Rate [Posterior Bilateral Throughout] Blood Pressure 129/54 O2 Sat by Pulse 99 Oximetry 03/04/22 03/04/22 03/04/22 08:29 08:30 08:46 Temperature Pulse Rate 67 77 Pulse Rate [ Bilateral Throughout] Pulse Rate [ 66 From Monitor] Pulse Rate [ Posterior Bilateral Throughout] Respiratory 16 19 18 Rate Respiratory Rate [Bilateral Throughout] Respiratory Rate [Posterior Bilateral Throughout] Blood Pressure 146/68 146/68 O2 Sat by Pulse 96 98 98 Oximetry 03/04/22 03/04/22 03/04/22 09:00 09:16 09:30 Temperature Pulse Rate 80 79 74 Pulse Rate [ Bilateral Throughout] Pulse Rate [ From Monitor] Pulse Rate [ Posterior Bilateral Throughout] Respiratory 18 21 17 Rate Respiratory Rate [Bilateral Throughout] Respiratory Rate [Posterior Bilateral Throughout] Blood Pressure 151/76 151/76 132/72 O2 Sat by Pulse 96 95 94 Oximetry 03/04/22 03/04/22 03/04/22 09:46 10:00 10:16 Temperature Pulse Rate 75 66 64 Pulse Rate [ Bilateral Throughout] Pulse Rate [ From Monitor] Pulse Rate [ Posterior Bilateral Throughout] Respiratory 18 15 15 Rate Respiratory Rate [Bilateral Throughout] Respiratory Rate [Posterior Bilateral Throughout] Blood Pressure 132/72 128/61 128/61 O2 Sat by Pulse 94 94 96 Oximetry 03/04/22 03/04/22 03/04/22 10:30 10:46 11:00 Temperature Pulse Rate 56 L 64 51 L Pulse Rate [ Bilateral Throughout] Pulse Rate [ From Monitor] Pulse Rate [ Posterior Bilateral Throughout] Respiratory 14 15 14 Rate Respiratory Rate [Bilateral Throughout] Respiratory Rate [Posterior Bilateral Throughout] Blood Pressure 128/51 128/51 139/56 O2 Sat by Pulse 95 97 96 Oximetry 03/04/22 12:00 Temperature 97.2 F L Pulse Rate Pulse Rate [ Bilateral Throughout] Pulse Rate [ From Monitor] Pulse Rate [ Posterior Bilateral Throughout] Respiratory Rate Respiratory Rate [Bilateral Throughout] Respiratory Rate [Posterior Bilateral Throughout] Blood Pressure O2 Sat by Pulse Oximetry Constitutional: other (on NRB) Eyes: non-icteric ENT: oropharynx moist Neck: supple Effort: normal Ascultation: Bilateral: diminished breath sounds, rhonchi Cardiovascular: regular rate and rhythm Gastrointestinal: normoactive bowel sounds, soft, non-tender (on o2 vest in place) Integumentary: normal Extremities: no cyanosis Neurologic: other (awake) CBC and BMP: 03/04/22 05:32 03/04/22 05:32 ABG, PT/INR, D-dimer: ABG ABG pH 7.411 pH Units (7.350-7.450) 03/02/22 05:18 ABG pCO2 53.2 mm Hg 03/02/22 05:18 ABG pO2 110.5 mm Hg (80.0-90.0) H 03/02/22 05:18 ABG O2 Saturation 97.9 % (95.0-99.0) 03/02/22 05:18 PT/INR, D-dimer PT 16.9 Sec. (12.2-14.9) H 02/18/22 21:02 INR 1.20 (0.87-1.13) H 02/18/22 21:02 Abnormal lab findings: Abnormal Labs 02/18/22 02/18/22 02/18/22 19:34 21:02 21:02 WBC RBC Hgb Hct MCV 101 H MCH 34 H RDW 16.1 H Lymph % (Auto) [place] % (Auto) 12.4 H Lymph # (Auto) [place] # (Auto) 1.2 H Seg Neutrophils % 73.0 H Seg Neuts % (Manual) Lymphocytes % (Manual) Seg Neutrophils # Seg Neutrophils # Man Lymphocytes # (Manual) PT 16.9 H INR 1.20 H ABG pH ABG pO2 ABG HCO3 ABG O2 Saturation ABG Base Excess ABG Hemoglobin Oxyhemoglobin Sodium Potassium Chloride Carbon Dioxide BUN Creatinine Glucose POC Glucose 116 H Calcium Phosphorus AST ALT Ammonia Albumin 02/18/22 02/18/22 02/18/22 21:02 22:45 23:22 WBC RBC Hgb Hct MCV MCH RDW Lymph % (Auto) [place] % (Auto) Lymph # (Auto) [place] # (Auto) Seg Neutrophils % Seg Neuts % (Manual) Lymphocytes % (Manual) Seg Neutrophils # Seg Neutrophils # Man Lymphocytes # (Manual) PT INR ABG pH ABG pO2 55.6 L ABG HCO3 28.4 H ABG O2 Saturation 91.5 L ABG Base Excess 3.8 H ABG Hemoglobin 13.2 L Oxyhemoglobin 89.6 L Sodium Potassium 5.1 H Chloride Carbon Dioxide BUN Creatinine Glucose 102 H POC Glucose Calcium Phosphorus AST 48 H ALT 64 H Ammonia 14.0 L Albumin 2.7 L 02/20/22 02/20/22 02/23/22 04:59 04:59 06:29 WBC 11.4 H RBC Hgb Hct MCV 103 H MCH 33 H RDW 16.5 H Lymph % (Auto) 5.5 L [place] % (Auto) 12.1 H Lymph # (Auto) 0.6 L [place] # (Auto) 1.4 H Seg Neutrophils % 81.4 H Seg Neuts % (Manual) Lymphocytes % (Manual) Seg Neutrophils # 9.2 H Seg Neutrophils # Man Lymphocytes # (Manual) PT INR ABG pH ABG pO2 ABG HCO3 ABG O2 Saturation ABG Base Excess ABG Hemoglobin Oxyhemoglobin Sodium Potassium Chloride Carbon Dioxide BUN Creatinine Glucose POC Glucose 113 H Calcium 8.2 L Phosphorus AST ALT Ammonia Albumin 02/23/22 02/23/22 02/24/22 11:22 16:10 00:02 WBC RBC Hgb Hct MCV MCH RDW Lymph % (Auto) [place] % (Auto) Lymph # (Auto) [place] # (Auto) Seg Neutrophils % Seg Neuts % (Manual) Lymphocytes % (Manual) Seg Neutrophils # Seg Neutrophils # Man Lymphocytes # (Manual) PT INR ABG pH ABG pO2 ABG HCO3 ABG O2 Saturation ABG Base Excess ABG Hemoglobin Oxyhemoglobin Sodium Potassium Chloride Carbon Dioxide BUN Creatinine Glucose POC Glucose 108 H 115 H 109 H Calcium Phosphorus AST ALT Ammonia Albumin 02/24/22 02/24/22 02/24/22 11:05 11:05 13:20 WBC RBC 3.55 L Hgb Hct MCV 100 H MCH 34 H RDW 15.6 H Lymph % (Auto) [place] % (Auto) Lymph # (Auto) [place] # (Auto) Seg Neutrophils % Seg Neuts % (Manual) Lymphocytes % (Manual) Seg Neutrophils # Seg Neutrophils # Man Lymphocytes # (Manual) PT INR ABG pH ABG pO2 ABG HCO3 ABG O2 Saturation ABG Base Excess ABG Hemoglobin Oxyhemoglobin Sodium 146 H Potassium 3.2 L D Chloride 108.4 H Carbon Dioxide BUN Creatinine 0.5 L Glucose POC Glucose 111 H Calcium 7.9 L Phosphorus 2.20 L AST ALT Ammonia Albumin 02/24/22 02/24/22 02/24/22 16:30 17:03 20:25 WBC RBC Hgb Hct MCV MCH RDW Lymph % (Auto) [place] % (Auto) Lymph # (Auto) [place] # (Auto) Seg Neutrophils % Seg Neuts % (Manual) Lymphocytes % (Manual) Seg Neutrophils # Seg Neutrophils # Man Lymphocytes # (Manual) PT INR ABG pH 7.319 L ABG pO2 65.3 L ABG HCO3 31.3 H ABG O2 Saturation 92.2 L ABG Base Excess 3.8 H ABG Hemoglobin 12.0 L Oxyhemoglobin 90.3 L Sodium Potassium Chloride 107.9 H Carbon Dioxide BUN 8 L Creatinine 0.4 L Glucose POC Glucose 108 H Calcium 7.6 L Phosphorus 4.60 H D AST ALT Ammonia Albumin 02/25/22 02/25/22 02/25/22 04:12 04:12 05:05 WBC RBC 3.07 L Hgb 10.2 L Hct 31.5 L MCV 103 H MCH 33 H RDW 15.6 H Lymph % (Auto) [place] % (Auto) Lymph # (Auto) [place] # (Auto) Seg Neutrophils % Seg Neuts % (Manual) Lymphocytes % (Manual) Seg Neutrophils # Seg Neutrophils # Man Lymphocytes # (Manual) PT INR ABG pH ABG pO2 ABG HCO3 32.5 H ABG O2 Saturation ABG Base Excess 5.6 H ABG Hemoglobin 10.8 L Oxyhemoglobin 94.8 L Sodium Potassium 3.5 L Chloride 107.7 H Carbon Dioxide BUN Creatinine 0.5 L Glucose POC Glucose Calcium 7.0 L Phosphorus AST ALT Ammonia Albumin 02/25/22 02/25/22 02/26/22 12:05 18:33 00:07 WBC RBC Hgb Hct MCV MCH RDW Lymph % (Auto) [place] % (Auto) Lymph # (Auto) [place] # (Auto) Seg Neutrophils % Seg Neuts % (Manual) Lymphocytes % (Manual) Seg Neutrophils # Seg Neutrophils # Man Lymphocytes # (Manual) PT INR ABG pH ABG pO2 ABG HCO3 ABG O2 Saturation ABG Base Excess ABG Hemoglobin Oxyhemoglobin Sodium Potassium Chloride Carbon Dioxide BUN Creatinine Glucose POC Glucose 127 H 125 H 114 H Calcium Phosphorus AST ALT Ammonia Albumin 02/26/22 02/26/22 02/26/22 03:30 04:42 11:34 WBC RBC Hgb Hct MCV MCH RDW Lymph % (Auto) [place] % (Auto) Lymph # (Auto) [place] # (Auto) Seg Neutrophils % Seg Neuts % (Manual) Lymphocytes % (Manual) Seg Neutrophils # Seg Neutrophils # Man Lymphocytes # (Manual) PT INR ABG pH ABG pO2 143.2 H ABG HCO3 33.2 H ABG O2 Saturation ABG Base Excess 6.5 H ABG Hemoglobin 9.4 L Oxyhemoglobin Sodium Potassium Chloride Carbon Dioxide 32 H BUN Creatinine 0.7 L Glucose POC Glucose 114 H Calcium 8.0 L Phosphorus AST ALT Ammonia Albumin 02/26/22 02/26/22 02/27/22 18:17 23:37 04:19 WBC 13.7 H RBC 2.78 L Hgb 9.3 L Hct 28.5 L MCV 103 H MCH 33 H RDW 16.3 H Lymph % (Auto) [place] % (Auto) Lymph # (Auto) [place] # (Auto) Seg Neutrophils % Seg Neuts % (Manual) Lymphocytes % (Manual) Seg Neutrophils # Seg Neutrophils # Man Lymphocytes # (Manual) PT INR ABG pH ABG pO2 ABG HCO3 ABG O2 Saturation ABG Base Excess ABG Hemoglobin Oxyhemoglobin Sodium Potassium Chloride Carbon Dioxide BUN Creatinine Glucose POC Glucose 111 H 117 H Calcium Phosphorus AST ALT Ammonia Albumin 02/27/22 02/27/22 02/27/22 04:19 04:35 05:27 WBC RBC Hgb Hct MCV MCH RDW Lymph % (Auto) [place] % (Auto) Lymph # (Auto) [place] # (Auto) Seg Neutrophils % Seg Neuts % (Manual) Lymphocytes % (Manual) Seg Neutrophils # Seg Neutrophils # Man Lymphocytes # (Manual) PT INR ABG pH ABG pO2 96.3 H ABG HCO3 34.9 H ABG O2 Saturation ABG Base Excess 8.1 H ABG Hemoglobin Oxyhemoglobin Sodium Potassium Chloride Carbon Dioxide 31 H BUN Creatinine 0.6 L Glucose 107 H POC Glucose 133 H Calcium 7.8 L Phosphorus AST ALT Ammonia Albumin 02/27/22 02/27/22 02/28/22 11:15 23:35 03:38 WBC 13.3 H RBC 3.05 L Hgb 10.2 L Hct 30.7 L MCV 101 H MCH 33 H RDW 16.1 H Lymph % (Auto) [place] % (Auto) Lymph # (Auto) [place] # (Auto) Seg Neutrophils % Seg Neuts % (Manual) Lymphocytes % (Manual) Seg Neutrophils # Seg Neutrophils # Man Lymphocytes # (Manual) PT INR ABG pH ABG pO2 ABG HCO3 ABG O2 Saturation ABG Base Excess ABG Hemoglobin Oxyhemoglobin Sodium Potassium Chloride Carbon Dioxide BUN Creatinine Glucose POC Glucose 129 H 122 H Calcium Phosphorus AST ALT Ammonia Albumin 02/28/22 02/28/22 02/28/22 04:50 05:30 09:30 WBC RBC Hgb Hct MCV MCH RDW Lymph % (Auto) [place] % (Auto) Lymph # (Auto) [place] # (Auto) Seg Neutrophils % Seg Neuts % (Manual) Lymphocytes % (Manual) Seg Neutrophils # Seg Neutrophils # Man Lymphocytes # (Manual) PT INR ABG pH 7.451 H 7.488 H ABG pO2 77.0 L ABG HCO3 37.1 H 34.6 H ABG O2 Saturation ABG Base Excess 11.5 H 10.1 H ABG Hemoglobin 10.1 L 10.0 L Oxyhemoglobin Sodium Potassium Chloride Carbon Dioxide BUN Creatinine Glucose POC Glucose 121 H Calcium Phosphorus AST ALT Ammonia Albumin 02/28/22 02/28/22 03/01/22 11:36 23:07 04:27 WBC 12.5 H RBC 2.85 L Hgb 9.5 L Hct 28.6 L MCV 101 H MCH 33 H RDW 15.7 H Lymph % (Auto) [place] % (Auto) Lymph # (Auto) [place] # (Auto) Seg Neutrophils % Seg Neuts % (Manual) Lymphocytes % (Manual) Seg Neutrophils # Seg Neutrophils # Man Lymphocytes # (Manual) PT INR ABG pH ABG pO2 ABG HCO3 ABG O2 Saturation ABG Base Excess ABG Hemoglobin Oxyhemoglobin Sodium Potassium Chloride Carbon Dioxide BUN Creatinine Glucose POC Glucose 112 H 107 H Calcium Phosphorus AST ALT Ammonia Albumin 03/01/22 03/01/22 03/01/22 04:27 05:05 11:29 WBC RBC Hgb Hct MCV MCH RDW Lymph % (Auto) [place] % (Auto) Lymph # (Auto) [place] # (Auto) Seg Neutrophils % Seg Neuts % (Manual) Lymphocytes % (Manual) Seg Neutrophils # Seg Neutrophils # Man Lymphocytes # (Manual) PT INR ABG pH ABG pO2 ABG HCO3 ABG O2 Saturation ABG Base Excess ABG Hemoglobin Oxyhemoglobin Sodium 147 H D Potassium Chloride Carbon Dioxide 34 H BUN Creatinine 0.6 L Glucose 128 H POC Glucose 119 H 121 H Calcium 7.9 L Phosphorus AST ALT Ammonia Albumin 03/01/22 03/01/22 03/02/22 16:15 23:57 05:18 WBC RBC Hgb Hct MCV MCH RDW Lymph % (Auto) [place] % (Auto) Lymph # (Auto) [place] # (Auto) Seg Neutrophils % Seg Neuts % (Manual) Lymphocytes % (Manual) Seg Neutrophils # Seg Neutrophils # Man Lymphocytes # (Manual) PT INR ABG pH ABG pO2 110.5 H ABG HCO3 33.0 H ABG O2 Saturation ABG Base Excess 7.4 H ABG Hemoglobin 8.6 L Oxyhemoglobin Sodium Potassium Chloride Carbon Dioxide BUN Creatinine Glucose POC Glucose 134 H 140 H Calcium Phosphorus AST ALT Ammonia Albumin 03/02/22 03/02/22 03/02/22 05:53 09:04 09:04 WBC 15.0 H RBC 3.00 L Hgb 9.7 L Hct 30.7 L MCV 102 H MCH RDW 16.6 H Lymph % (Auto) [place] % (Auto) Lymph # (Auto) [place] # (Auto) Seg Neutrophils % Seg Neuts % (Manual) Lymphocytes % (Manual) Seg Neutrophils # Seg Neutrophils # Man Lymphocytes # (Manual) PT INR ABG pH ABG pO2 ABG HCO3 ABG O2 Saturation ABG Base Excess ABG Hemoglobin Oxyhemoglobin Sodium Potassium Chloride Carbon Dioxide 31 H BUN Creatinine 0.6 L Glucose 157 H POC Glucose 158 H Calcium 7.9 L Phosphorus AST ALT Ammonia Albumin 03/02/22 03/02/22 03/02/22 11:36 16:25 23:17 WBC RBC Hgb Hct MCV MCH RDW Lymph % (Auto) [place] % (Auto) Lymph # (Auto) [place] # (Auto) Seg Neutrophils % Seg Neuts % (Manual) Lymphocytes % (Manual) Seg Neutrophils # Seg Neutrophils # Man Lymphocytes # (Manual) PT INR ABG pH ABG pO2 ABG HCO3 ABG O2 Saturation ABG Base Excess ABG Hemoglobin Oxyhemoglobin Sodium Potassium Chloride Carbon Dioxide BUN Creatinine Glucose POC Glucose 160 H 132 H 157 H Calcium Phosphorus AST ALT Ammonia Albumin 03/03/22 03/03/22 03/03/22 03:54 03:54 05:27 WBC 19.5 H RBC 2.79 L Hgb 9.0 L Hct 28.6 L MCV 102 H MCH RDW 16.2 H Lymph % (Auto) [place] % (Auto) Lymph # (Auto) [place] # (Auto) Seg Neutrophils % Seg Neuts % (Manual) 95.0 H Lymphocytes % (Manual) 3.0 L Seg Neutrophils # Seg Neutrophils # Man 18.5 H Lymphocytes # (Manual) 0.6 L PT INR ABG pH ABG pO2 ABG HCO3 ABG O2 Saturation ABG Base Excess ABG Hemoglobin Oxyhemoglobin Sodium Potassium Chloride Carbon Dioxide BUN Creatinine 0.6 L Glucose 130 H POC Glucose 149 H Calcium 8.1 L Phosphorus AST ALT Ammonia Albumin 03/03/22 03/03/22 03/04/22 11:13 17:30 00:02 WBC RBC Hgb Hct MCV MCH RDW Lymph % (Auto) [place] % (Auto) Lymph # (Auto) [place] # (Auto) Seg Neutrophils % Seg Neuts % (Manual) Lymphocytes % (Manual) Seg Neutrophils # Seg Neutrophils # Man Lymphocytes # (Manual) PT INR ABG pH ABG pO2 ABG HCO3 ABG O2 Saturation ABG Base Excess ABG Hemoglobin Oxyhemoglobin Sodium Potassium Chloride Carbon Dioxide BUN Creatinine Glucose POC Glucose 139 H 138 H 157 H Calcium Phosphorus AST ALT Ammonia Albumin 03/04/22 03/04/22 03/04/22 05:32 05:32 05:48 WBC 16.1 H RBC 2.81 L Hgb 9.3 L Hct 28.8 L MCV 102 H MCH 33 H RDW 16.7 H Lymph % (Auto) [place] % (Auto) Lymph # (Auto) [place] # (Auto) Seg Neutrophils % Seg Neuts % (Manual) Lymphocytes % (Manual) Seg Neutrophils # Seg Neutrophils # Man Lymphocytes # (Manual) PT INR ABG pH ABG pO2 ABG HCO3 ABG O2 Saturation ABG Base Excess ABG Hemoglobin Oxyhemoglobin Sodium Potassium Chloride Carbon Dioxide BUN Creatinine 0.7 L Glucose 135 H POC Glucose 145 H Calcium 8.3 L Phosphorus AST ALT Ammonia Albumin 03/04/22 11:34 WBC RBC Hgb Hct MCV MCH RDW Lymph % (Auto) [place] % (Auto) Lymph # (Auto) [place] # (Auto) Seg Neutrophils % Seg Neuts % (Manual) Lymphocytes % (Manual) Seg Neutrophils # Seg Neutrophils # Man Lymphocytes # (Manual) PT INR ABG pH ABG pO2 ABG HCO3 ABG O2 Saturation ABG Base Excess ABG Hemoglobin Oxyhemoglobin Sodium Potassium Chloride Carbon Dioxide BUN Creatinine Glucose POC Glucose 148 H Calcium Phosphorus AST ALT Ammonia Albumin
--- NOTE | 2022-03-04 12:49 | Electrocardiograph Report ---
[facility] Test Date: 2022-03-03 Test Time: 12:41:07 Pat Name: WILBERT RATLIFF Department: Room: A253 1 Gender: M [employer]: Marry : 1960 Requested By: KEATON GOLD Order Number: [id number] Reading MD: Mikhail Herbert Measurements Intervals [place] Rate: 52 P: 35 ND: 124 QRS: 6 QRSD: 112 T: 63 QT: 452 QTc: 421 Interpretive Statements Sinus bradycardia Incomplete left bundle branch block Low voltage, extremity leads Probable left ventricular hypertrophy ST elev, probable normal early repol pattern Compared to ECG 02/18/2022 20:51:27 Low QRS voltage now present ST (T wave) deviation now present Sinus tachycardia no longer present Electronically Signed On 03-04-2022 12:48:46 EDT by Mikhail Herbert
--- NOTE | 2022-03-04 13:15 | Progress Note ---
<KEATON GOLD - Last Filed: 03/04/22 23:40> Assessment and Plan Assessment and plan: This is a 51-year-old male with HTN, seizure disorder, Down syndrome, HLD, partial blindness admitted with aspiration pneumonia, probable bronchogenic carcinoma, acute hypoxic respiratory failure and acute encephalopathy Hospital course to date: 02/19/2022. Consult pulmonary for further evaluation and possible bronchoscopy. I suspect patient has component of aspiration pneumonia as well. We will obtain a speech therapy evaluation for swallowing and start empiric antibiotics. Continue O2 supplementation to maintain sats greater than 92%. 02/20/2022. Pulmonary feels that the abnormality seen on CT scan is highly unlikely for a mass given negative chest x-ray 1 month ago and no risk factors. Etiology is likely secondary to aspiration from possibly a foreign body most likely food with atelectasis of the right lower lobe. Bronchoscopy is needed in the case to evaluate to see if lung mass is there vs foreign body, but at this time not able to do because no identifiable person that is able to give consent. Continue aspiration precautions and continue speech therapy evaluation for swallowing. Keep n.p.o. for now 02/21/2022. Patient remains NPO. Consider DHT placement. Follow-up with speech therapy evaluation. Pulmonology to consider bronchoscopy if able to obtain consent. Continue IV antibiotics for aspiration pneumonia 02/22/2022. Patient remains NPO. Consider DHT placement. Follow-up with speech therapy evaluation. Pulmonology to consider bronchoscopy if able to obtain consent. Continue IV antibiotics for aspiration pneumonia 02/23/2022. DHT placed yesterday. TF initiated for nutritional support. Patient currently with strict NPO. Aspiration precautions. Pulmonology to consider bronchoscopy if able to obtain consent. Continue IV antibiotics for aspiration pneumonia 02/24: Patient was transferred to the ICU for further monitoring. This morning patient remained on high flow nasal cannula on 40 L/100% and despite repeated nasotracheal suctioning patient SPO2 remained in the 80s. Patient was placed on nonrebreather and SPO2 increased to upper 80s. Patient was subsequently intubated by anesthesia. Started on sedation. 02/25: Patient remains sedated on fentanyl, potassium and magnesium repleted. IV fluids and amlodipine discontinued. Possible bronchoscopy tomorrow. 02/26: Patient had a bronchoscopy today which showed mucus and no endobronchial lesions or masses. FiO2 was increased to 100 during and postprocedure weaning as tolerated. Repeat CXR is much improved after bronc. Given 1 L LR bolus due to hypotension. No acute events reported overnight. 02/27: Decreased PEEP, will repeat CT of chest. no acute changes overnight. 02/28: Patient was extubated today however had to be be intubated shortly after. Patient ETT looked mispositioned on x-ray and Dr. Alonzo did do a bedside bronc. Patient was briefly hypotensive and on Levophed postintubation however Levophed was quickly titrated off and patient did not require central line. No acute events reported overnight. Will obtain CT neck d/t difficulty intubating. Ethic committee consulted. 03/04: Overnight patient was hypotensive and started on IVF. Patient started on steroids as no air leak noted and hypotension and given 2 L LR 03/05: Overnight patient received bolus per RN report, no orders seen. Continue supportive care 03/03: SB on the monitor, HR as low as 37, VSS. Will continue to monitor for now. Awaiting on desicion from [facility] for possible trach and PEG. Continue daily air leak per [facility] 03/04: MAIDA overnight. Remains stable on the vent. Awaiting on desicion from [facility] for possible trach and PEG. Continue current supportive measures Neuro: Acute encephalopathy, h/o seizure disorder, Down syndrome, partial blindness -Patient currently sedated with propofol -RASS goal 0 to -1 -Reorientation as needed -Maintain sleep-wake cycle -aspiration/seizure precautions -As needed analgesia -CT head showed no acute abnormality -Continue Keppra Cardiac: Hypotension, h/o HTN, HLD -Cardiology consulted, appreciate recommendations -Blood pressure monitoring per protocol -d/c amlodipine -Midodrine TID -s/p 500 ml NS 02/25 and 1L LR 02/26, 2L LR 03/01 Respiratory: Acute hypoxic respiratory failure, r/o bronchogenic carcinoma -[facility] consulted, appreciate recommendations -Intubated on 02/24 with a 8.0 at 23 at the lips but extubated 02/28 -reintubated 02/28 with 8.0 OETT -Vent settings: AC rate 14, TV 360, PEEP 6, FO2 40% -See RT notes for titration -VAP bundle -SPO2 monitoring -02/18 CTA chest showed no evidence of pulmonary embolism, suspected bronchogenic carcinoma with associated obstruction of the right lower lobe proximal bronchus segment, 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 adenopathy and suspected to left lower lobe metastatic nodule -02/26 Bronch->mucous, no lesion noted -02/27 CT chest showed right mainstem bronchus patent with small amount of interval bronchial fluid which may be mucus (this may account for the appearance of the prior CTA chest fluid-filled airway rather than entering bronchial lesion), previously seen complete left lower lobe since related to bronchial occlusion has significantly improved, there is persistent compressive atelectasis in the right lower lung secondary to the pleural effusion, bilateral pleural effusions, right lung pneumonia -CT neck showed no acute changes - IV Steroids stopped GI: Moderate protein calorie malnutrition -PPI -NTR consulted for tube feedings -BR: Senokot S : Hypernatremia (resolved) -FWF 200 ml q4 hr -Monitor intake and output -Renally dose medications -Avoid nephrotoxic medications -Trend BMP ID: Aspiration PNA -S/p Rocephin for 5 days (02/19-02/24) -Monitor WBC and temperature curve Endo: NAD -Avoid hypoglycemia -Accu-Cheks every 6 -Avoid hypoglycemia Heme: NAD -Trend CBC -Transfuse hemoglobin less than 7 -SCDs to BLE while in bed The high probability of a clinically significant, sudden or life threatening deterioration of the [resp] system(s) required my full and direct attention, intervention and personal management. The aggregate critical care time was [60] minutes. This time is in addition to time spent performing reported procedures but includes the following: [x] Data Review and interpretation [x] Patient assessment and monitoring of vital signs [x] Documentation [x] Medication orders and management Disposition Plan: ICU Total Time Spent with Patient (Minutes): 60 History Interval history: Patient seen and examined at the bedside. Remains stable on low vent setting, not on any sedation. Open eyes spontaneously and move extremities but does not f ollow any commands. SB/SR on the monitor this am, VSS. MAIDA overnight Hospitalist Physical - Physical exam Narrative exam: General appearance: Present: no acute distress, well-nourished, obese - EENT Eyes: Present: PERRL - Neck Neck: Present: normal ROM - Respiratory Respiratory effort: normal Respiratory: bilateral: rhonchi - Cardiovascular Rhythm: regular Heart Sounds: Present: S1 & S2 - Extremities Extremities: no ischemia, pulses intact, pulses symmetrical Extremity abnormal: edema - Peripheral Assessment Generalized Edema Type: Non-pitting Edema Degree: 1+ Capillary Refill: < 3 seconds Skin Temperature: Warm Peripheral Pulses: within normal limits - Abdominal General gastrointestinal: soft, non-distended, normal bowel sounds - Integumentary Integumentary: Present: warm, dry - Psychiatric Psychiatric: other (Intubated, unresponsive. Not on any sedations) - Neurologic Neurologic: moves all extremities, other (Intubated, unresponsive. Not on any sedations) - Allied Health Allied health notes reviewed: nursing, case management - Constitutional Vitals: Temp Pulse Resp BP Pulse Ox 97.2 F L 78 15 157/111 98 03/04/22 12:00 03/04/22 13:00 03/04/22 13:00 03/04/22 13:00 03/04/22 13:00 HEART Score - HEART Score Troponin: Troponin T < 0.010 ng/mL (0.00-0.029) 02/18/22 21:02 Results - Labs CBC & Chem 7: 03/04/22 05:32 03/04/22 05:32 Labs: Laboratory Last Values WBC 16.1 K/mm3 (4.5-11.0) H 03/04/22 05:32 RBC 2.81 M/mm3 (3.65-5.03) L 03/04/22 05:32 Hgb 9.3 gm/dl (11.8-15.2) L 03/04/22 05:32 Hct 28.8 % (35.5-45.6) L 03/04/22 05:32 MCV 102 fl (84-94) H 03/04/22 05:32 MCH 33 pg (28-32) H 03/04/22 05:32 MCHC 32 % (32-34) 03/04/22 05:32 RDW 16.7 % (13.2-15.2) H 03/04/22 05:32 Plt Count 320 K/mm3 (140-440) 03/04/22 05:32 Lymph % (Auto) 5.5 % (13.4-35.0) L 02/20/22 04:59 [place] % (Auto) 12.1 % (0.0-7.3) H 02/20/22 04:59 Eos % (Auto) 0.2 % (0.0-4.3) 02/20/22 04:59 Baso % (Auto) 0.8 % (0.0-1.8) 02/20/22 04:59 Lymph # (Auto) 0.6 K/mm3 (1.2-5.4) L 02/20/22 04:59 [place] # (Auto) 1.4 K/mm3 (0.0-0.8) H 02/20/22 04:59 Eos # (Auto) 0.0 K/mm3 (0.0-0.4) 02/20/22 04:59 Baso # (Auto) 0.1 K/mm3 (0.0-0.1) 02/20/22 04:59 Add Manual Diff Complete 03/03/22 03:54 Total Counted 100 03/03/22 03:54 Seg Neutrophils % 81.4 % (40.0-70.0) H 02/20/22 04:59 Seg Neuts % (Manual) 95.0 % (40.0-70.0) H 03/03/22 03:54 Band Neutrophils % 0 % 03/03/22 03:54 Lymphocytes % (Manual) 3.0 % (13.4-35.0) L 03/03/22 03:54 Reactive Lymphs % (Man) 0 % 03/03/22 03:54 Monocytes % (Manual) 2.0 % (0.0-7.3) 03/03/22 03:54 Eosinophils % (Manual) 0 % (0.0-4.3) 03/03/22 03:54 Basophils % (Manual) 0 % (0.0-1.8) 03/03/22 03:54 Metamyelocytes % 0 % 03/03/22 03:54 Myelocytes % 0 % 03/03/22 03:54 Promyelocytes % 0 % 03/03/22 03:54 Blast Cells % 0 % 03/03/22 03:54 Nucleated RBC % Not Reportable 03/03/22 03:54 Seg Neutrophils # 9.2 K/mm3 (1.8-7.7) H 02/20/22 04:59 Seg Neutrophils # Man 18.5 K/mm3 (1.8-7.7) H 03/03/22 03:54 Band Neutrophils # 0.0 K/mm3 03/03/22 03:54 Lymphocytes # (Manual) 0.6 K/mm3 (1.2-5.4) L 03/03/22 03:54 Abs React Lymphs (Man) 0.0 K/mm3 03/03/22 03:54 Monocytes # (Manual) 0.4 K/mm3 (0.0-0.8) 03/03/22 03:54 Eosinophils # (Manual) 0.0 K/mm3 (0.0-0.4) 03/03/22 03:54 Basophils # (Manual) 0.0 K/mm3 (0.0-0.1) 03/03/22 03:54 Metamyelocytes # 0.0 K/mm3 03/03/22 03:54 Myelocytes # 0.0 K/mm3 03/03/22 03:54 Promyelocytes # 0.0 K/mm3 03/03/22 03:54 Blast Cells # 0.0 K/mm3 03/03/22 03:54 WBC Morphology Not Reportable 03/03/22 03:54 Hypersegmented Neuts Not Reportable 03/03/22 03:54 Hyposegmented Neuts Not Reportable 03/03/22 03:54 Hypogranular Neuts Not Reportable 03/03/22 03:54 Smudge Cells Not Reportable 03/03/22 03:54 Toxic Granulation Not Reportable 03/03/22 03:54 Toxic Vacuolation Not Reportable 03/03/22 03:54 Dohle Bodies Not Reportable 03/03/22 03:54 Pelger-Huet Anomaly Not Reportable 03/03/22 03:54 Lakshmi Rods Not Reportable 03/03/22 03:54 Platelet Estimate Consistent w auto 03/03/22 03:54 Clumped Platelets Not Reportable 03/03/22 03:54 Plt Clumps, EDTA Not Reportable 03/03/22 03:54 Large Platelets Not Reportable 03/03/22 03:54 Giant Platelets Not Reportable 03/03/22 03:54 Platelet Satelliting Not Reportable 03/03/22 03:54 Plt Morphology Comment Not Reportable 03/03/22 03:54 RBC Morphology Not Reportable 03/03/22 03:54 Dimorphic RBCs Not Reportable 03/03/22 03:54 Polychromasia Not Reportable 03/03/22 03:54 Hypochromasia Not Reportable 03/03/22 03:54 Poikilocytosis Not Reportable 03/03/22 03:54 Anisocytosis 1+ 03/03/22 03:54 Microcytosis Not Reportable 03/03/22 03:54 Macrocytosis Not Reportable 03/03/22 03:54 Spherocytes Not Reportable 03/03/22 03:54 Pappenheimer Bodies Not Reportable 03/03/22 03:54 Sickle Cells Not Reportable 03/03/22 03:54 Target Cells Not Reportable 03/03/22 03:54 Tear Drop Cells Not Reportable 03/03/22 03:54 Ovalocytes Not Reportable 03/03/22 03:54 Helmet Cells Not Reportable 03/03/22 03:54 Orellana-Sekiu Bodies Not Reportable 03/03/22 03:54 Austin Rings Not Reportable 03/03/22 03:54 Taylor Cells Not Reportable 03/03/22 03:54 Bite Cells Not Reportable 03/03/22 03:54 Crenated Cell Not Reportable 03/03/22 03:54 Elliptocytes Not Reportable 03/03/22 03:54 Acanthocytes (Spur) Not Reportable 03/03/22 03:54 Rouleaux Not Reportable 03/03/22 03:54 Hemoglobin C Crystals Not Reportable 03/03/22 03:54 Schistocytes Not Reportable 03/03/22 03:54 Malaria parasites Not Reportable 03/03/22 03:54 Cash Bodies Not Reportable 03/03/22 03:54 Hem Pathologist Commnt No 03/03/22 03:54 PT 16.9 Sec. (12.2-14.9) H 02/18/22 21:02 INR 1.20 (0.87-1.13) H 02/18/22 21:02 ABG pH 7.411 pH Units (7.350-7.450) 03/02/22 05:18 ABG pCO2 53.2 mm Hg 03/02/22 05:18 ABG pO2 110.5 mm Hg (80.0-90.0) H 03/02/22 05:18 ABG HCO3 33.0 mmol/L (20.0-26.0) H 03/02/22 05:18 ABG O2 Saturation 97.9 % (95.0-99.0) 03/02/22 05:18 ABG O2 Content 11.8 (0.0-44) 03/02/22 05:18 ABG Base Excess 7.4 mmol/L (-2.0-3.0) H 03/02/22 05:18 ABG Hemoglobin 8.6 gm/dl (14.0-18.0) L 03/02/22 05:18 ABG Carboxyhemoglobin 1.4 % (0.0-5.0) 03/02/22 05:18 ABG Methemoglobin 0.6 % (0.0-1.5) 03/02/22 05:18 Oxyhemoglobin 96.0 % (95.0-99.0) 03/02/22 05:18 FiO2 40 % 03/02/22 05:18 Sodium 142 mmol/L (137-145) 03/04/22 05:32 Potassium 3.8 mmol/L (3.6-5.0) 03/04/22 05:32 Chloride 103.7 mmol/L (98-107) 03/04/22 05:32 Carbon Dioxide 30 mmol/L (22-30) 03/04/22 05:32 Anion Gap 12 mmol/L 03/04/22 05:32 BUN 20 mg/dL (9-20) 03/04/22 05:32 Creatinine 0.7 mg/dL (0.8-1.3) L 03/04/22 05:32 Estimated GFR > 60 ml/min 03/04/22 05:32 BUN/Creatinine Ratio 29 % 03/04/22 05:32 Glucose 135 mg/dL (75-100) H 03/04/22 05:32 POC Glucose 148 mg/dL (70-105) H 03/04/22 11:34 Lactic Acid 1.20 mmol/L (0.7-2.0) 02/18/22 21:02 Calcium 8.3 mg/dL (8.4-10.2) L 03/04/22 05:32 Phosphorus 2.80 mg/dL (2.5-4.5) 03/04/22 05:32 Magnesium 2.30 mg/dL (1.7-2.3) 03/04/22 05:32 Total Bilirubin 0.50 mg/dL (0.1-1.2) 02/18/22 21:02 AST 48 units/L (5-40) H 02/18/22 21:02 ALT 64 units/L (7-56) H 02/18/22 21:02 Alkaline Phosphatase 88 units/L (35-129) 02/18/22 21:02 Ammonia 14.0 umol/L (25-60) L 02/18/22 23:22 Troponin T < 0.010 ng/mL (0.00-0.029) 02/18/22 21:02 Total Protein 7.2 g/dL (6.3-8.2) 02/18/22 21:02 Albumin 2.7 g/dL (3.9-5) L 02/18/22 21: Albumin/Globulin Ratio 0.6 % 02/18/22 21:02 Urine Color Dark yellow (Yellow) 02/18/22 Unknown Urine Turbidity Clear (Clear) 02/18/22 Unknown Urine pH 7.0 (5.0-7.0) 02/18/22 Unknown Ur Specific [place] 1.015 (1.003-1.030) 02/18/22 Unknown Urine Protein <15 mg/dl mg/dL (Negative) 02/18/22 Unknown Urine Glucose (UA) Negative mg/dL (Negative) 02/18/22 Unknown Urine Ketones Negative mg/dL (Negative) 02/18/22 Unknown Urine Blood Trace (Negative) 02/18/22 Unknown Urine Nitrite Negative (Negative) 02/18/22 Unknown Urine Bilirubin Negative (Negative) 02/18/22 Unknown Urine Urobilinogen < 2.0 mg/dL (<2.0) 02/18/22 Unknown Ur Leukocyte Esterase Negative (Negative) 02/18/22 Unknown Urine WBC (Auto) 2.0 /HPF (0.0-6.0) 02/18/22 Unknown Urine RBC (Auto) 9.0 /HPF (0.0-6.0) 02/18/22 Unknown Urine Mucus Few /HPF 02/18/22 Unknown Urine Opiates Screen Negative 02/18/22 Unknown Urine Methadone Screen Negative 02/18/22 Unknown Ur Barbiturates Screen Negative 02/18/22 Unknown Ur Phencyclidine Scrn Negative 02/18/22 Unknown Ur Amphetamines Screen Negative 02/18/22 Unknown U Benzodiazepines Scrn Negative 02/18/22 Unknown Urine Cocaine Screen Negative 02/18/22 Unknown U Marijuana (THC) Screen Negative 02/18/22 Unknown Drugs of Abuse Note Disclamer 02/18/22 Unknown Plasma/Serum Alcohol < 0.01 % (0-0.07) 02/18/22 21:02 Horowitz/IV: Voiding Method Indwelling Catheter Active Medications - Current Medications Current Medications: Generic Name Dose Route Start Last Admin Trade Name Freq PRN Reason Stop Dose Admin Acetaminophen 650 mg 03/03/22 09:00 Acetaminophen 325 Mg/10.15 Ml Oral Liqd Unit Dose FEEDTUBE Q4H PRN Pain, Mild (1-3); TEMP > 100.4 Albuterol 2.5 mg 02/23/22 16:00 03/04/22 12:30 Albuterol 2.5 Mg/3 Ml Nebu IH 2.5 mg Q4HRT LAZARUS Administration Famotidine 20 mg 02/25/22 10:00 03/04/22 10:44 Famotidine 20 Mg Tab FEEDTUBE 20 mg BID LAZARUS Administration Heparin Sodium (Porcine) 5,000 unit 02/19/22 06:00 03/03/22 21:23 Heparin 5,000 Unit/1 Ml Vial SUB-Q 5,000 unit Q8HR LAZARUS Administration Hydrophilic Ointment 1 applic 02/24/22 15:05 Lip Therapy Vaseline TP Q2HR PRN Dry Lips Levetiracetam 500 mg 02/25/22 22:00 03/04/22 10:44 Levetiracetam 500 Mg/5 Ml Oral Liqd FEEDTUBE 500 mg BID LAZARUS Administration Levothyroxine Sodium 25 mcg 02/26/22 06:00 03/03/22 06:56 Levothyroxine 25 Mcg Tab FEEDTUBE 25 mcg QAM@0600 LAZARUS Administration Magnesium Hydroxide 30 ml 02/19/22 02:02 Magnesium Hydroxide (Mom) Oral Liqd Udc PO Q4H PRN Constipation Morphine Sulfate 2 mg 02/19/22 02:02 Morphine 2 Mg/1 Ml Inj IV Q4H PRN Pain, Moderate (4-6) Morphine Sulfate 4 mg 02/19/22 02:02 Morphine 4 Mg/1 Ml Inj IV Q4H PRN Pain , Severe (7-10) Multi-Ingred Cream/Lotion/Oil/Oint 1 applic 02/24/22 15:05 Mineral Oil/Petrolatum, White Ophth Oint 3.5 Gm OU Q4HR PRN Dry Eye(s) Ondansetron HCl 4 mg 02/19/22 02:02 Ondansetron 4 Mg/2 Ml Inj IV Q8H PRN Nausea And Vomiting Pravastatin Sodium 40 mg 02/25/22 22:00 03/03/22 21:23 Pravastatin 40 Mg Tab FEEDTUBE 40 mg QHS LAZARUS Administration Senna/Docusate Sodium 1 tab 02/24/22 22:00 03/04/22 10:44 Sennosides/Docusate Sodium 8.6/50 Mg Tab FEEDTUBE 1 tab BID LAZARUS Administration Sodium Chloride 10 ml 02/19/22 10:00 03/04/22 10:44 Sodium Chloride 0.9% 10 Ml Flush Syringe IV 10 ml BID LAZARUS Administration Sodium Chloride 10 ml 02/19/22 02:02 03/03/22 14:21 Sodium Chloride 0.9% 10 Ml Flush Syringe IV 10 ml PRN PRN Administration LINE FLUSH Nutrition/Malnutrition Assess - Dietary Evaluation Nutrition/Malnutrition Findings: Nutrition Notes Start: 02/19/22 14:29 Freq: Status: Active Protocol: Document 02/28/22 15:34 TIERRA (Rec: 02/28/22 15:46 TIERRA [id number]) Nutrition Notes Initial or Follow up Brief Note Current Diet TF-Vital AF 1.2 Yordy @ 50 ml/hr (from L 02/27). Height 5 ft 3 in Weight 63.2 kg Stanton Body Weight (kg) 56.36 BMI 24.7 Weight change and time frame No body weight change reported in 6 days. Weight Status Appropriate Subjective/Other Information RD consult for routine F/U on TF tolerance/continuation. TF continues as prescribed, no further information available at the time, will assess at F /U. Pt was extubated this morning, but soon had to be intubated again, now Pt continues on Mechanical Ventilation, O2 saturation @ 94%, according to Physical Assessment History notes. Percent of energy/protein needs met: Prescribed TF-Vital AF 1.2 Yordy @ 50 ml/hr provides for energy/protein needs (1,450 Kcal/91 g) during LOS, 104% Kcal; 100% AA. #1 Nutrition Diagnosis Inadequate oral intake Comments: Pt was extubated this morning, but soon had to be intubated again, now Pt continues on Mechanical Ventilation, O2 saturation @ 94%, according to Physical Assessment History notes. Diagnosis Progress(for reassessment Continues documentation) Is patient on ventilator? Yes Is Patient Ambulatory and/or Out of Bed No REE-([facility] [facility]-confined to bed) 1591.836 Kcal/Kg value to use for calculation 22 Approximate Energy Requirements Using 1390 kcal/Kg Calculation Used for Recommendations Kcal/kg Additional Notes Protein: 1.2-2 g/Kg ABW; 76- 126 g/day. Fluids: 1 ml/Kcal, or as per MD. Nutrition Intervention Nutrition Support: Continue TF-Vital AF 1.2 Yordy @ 50 ml/hr. Flush: 70 ml water Q 4 hr, or as per MD. Kcal 1,450 Protein (gm) 91 Carbohydrates (gm) 134 Fat (gm) 65 Fluid (mL) 980 Fiber (gm) 6 % RDI: 104% Kcal; 100% AA. Goal #1 Provide at least 75% of energy /protein needs through Enteral Feeding during LOS. Goal #2 Adjust the dietary intervention to better serve Pt's needs and clinical conditions during LOS. Follow-Up By: 03/07/22 Additional Comments Continue monitoring on ventilation status, TF tolerance, and BM. <JOAQUIN ROBIN - Last Filed: 03/05/22 07:38> Assessment and Plan Assessment and plan: I saw and evaluated the patient. I agree with the findings and the plan of care as documented in the Nurse Practitioner's~note, with the following corrections and additions. Hospitalist Physical - Constitutional Vitals: Temp Pulse Resp BP Pulse Ox 98.9 F 57 L 14 108/45 94 03/05/22 04:00 03/05/22 07:30 03/05/22 07:30 03/05/22 07:30 03/05/22 07:30 HEART Score - HEART Score Troponin: Troponin T < 0.010 ng/mL (0.00-0.029) 02/18/22 21:02 Results - Labs CBC & Chem 7: 03/04/22 05:32 03/04/22 05:32 Labs: Laboratory Last Values WBC 16.1 K/mm3 (4.5-11.0) H 03/04/22 05:32 RBC 2.81 M/mm3 (3.65-5.03) L 03/04/22 05:32 Hgb 9.3 gm/dl (11.8-15.2) L 03/04/22 05:32 Hct 28.8 % (35.5-45.6) L 03/04/22 05:32 MCV 102 fl (84-94) H 03/04/22 05:32 MCH 33 pg (28-32) H 03/04/22 05:32 MCHC 32 % (32-34) 03/04/22 05:32 RDW 16.7 % (13.2-15.2) H 03/04/22 05:32 Plt Count 320 K/mm3 (140-440) 03/04/22 05:32 Lymph % (Auto) 5.5 % (13.4-35.0) L 02/20/22 04:59 [place] % (Auto) 12.1 % (0.0-7.3) H 02/20/22 04:59 Eos % (Auto) 0.2 % (0.0-4.3) 02/20/22 04:59 Baso % (Auto) 0.8 % (0.0-1.8) 02/20/22 04:59 Lymph # (Auto) 0.6 K/mm3 (1.2-5.4) L 02/20/22 04:59 [place] # (Auto) 1.4 K/mm3 (0.0-0.8) H 02/20/22 04:59 Eos # (Auto) 0.0 K/mm3 (0.0-0.4) 02/20/22 04:59 Baso # (Auto) 0.1 K/mm3 (0.0-0.1) 02/20/22 04:59 Add Manual Diff Complete 03/03/22 03:54 Total Counted 100 03/03/22 03:54 Seg Neutrophils % 81.4 % (40.0-70.0) H 02/20/22 04:59 Seg Neuts % (Manual) 95.0 % (40.0-70.0) H 03/03/22 03:54 Band Neutrophils % 0 % 03/03/22 03:54 Lymphocytes % (Manual) 3.0 % (13.4-35.0) L 03/03/22 03:54 Reactive Lymphs % (Man) 0 % 03/03/22 03:54 Monocytes % (Manual) 2.0 % (0.0-7.3) 03/03/22 03:54 Eosinophils % (Manual) 0 % (0.0-4.3) 03/03/22 03:54 Basophils % (Manual) 0 % (0.0-1.8) 03/03/22 03:54 Metamyelocytes % 0 % 03/03/22 03:54 Myelocytes % 0 % 03/03/22 03:54 Promyelocytes % 0 % 03/03/22 03:54 Blast Cells % 0 % 03/03/22 03:54 Nucleated RBC % Not Reportable 03/03/22 03:54 Seg Neutrophils # 9.2 K/mm3 (1.8-7.7) H 02/20/22 04:59 Seg Neutrophils # Man 18.5 K/mm3 (1.8-7.7) H 03/03/22 03:54 Band Neutrophils # 0.0 K/mm3 03/03/22 03:54 Lymphocytes # (Manual) 0.6 K/mm3 (1.2-5.4) L 03/03/22 03:54 Abs React Lymphs (Man) 0.0 K/mm3 03/03/22 03:54 Monocytes # (Manual) 0.4 K/mm3 (0.0-0.8) 03/03/22 03:54 Eosinophils # (Manual) 0.0 K/mm3 (0.0-0.4) 03/03/22 03:54 Basophils # (Manual) 0.0 K/mm3 (0.0-0.1) 03/03/22 03:54 Metamyelocytes # 0.0 K/mm3 03/03/22 03:54 Myelocytes # 0.0 K/mm3 03/03/22 03:54 Promyelocytes # 0.0 K/mm3 03/03/22 03:54 Blast Cells # 0.0 K/mm3 03/03/22 03:54 WBC Morphology Not Reportable 03/03/22 03:54 Hypersegmented Neuts Not Reportable 03/03/22 03:54 Hyposegmented Neuts Not Reportable 03/03/22 03:54 Hypogranular Neuts Not Reportable 03/03/22 03:54 Smudge Cells Not Reportable 03/03/22 03:54 Toxic Granulation Not Reportable 03/03/22 03:54 Toxic Vacuolation Not Reportable 03/03/22 03:54 Dohle Bodies Not Reportable 03/03/22 03:54 Pelger-Huet Anomaly Not Reportable 03/03/22 03:54 Lakshmi Rods Not Reportable 03/03/22 03:54 Platelet Estimate Consistent w auto 03/03/22 03:54 Clumped Platelets Not Reportable 03/03/22 03:54 Plt Clumps, EDTA Not Reportable 03/03/22 03:54 Large Platelets Not Reportable 03/03/22 03:54 Giant Platelets Not Reportable 03/03/22 03:54 Platelet Satelliting Not Reportable 03/03/22 03:54 Plt Morphology Comment Not Reportable 03/03/22 03:54 RBC Morphology Not Reportable 03/03/22 03:54 Dimorphic RBCs Not Reportable 03/03/22 03:54 Polychromasia Not Reportable 03/03/22 03:54 Hypochromasia Not Reportable 03/03/22 03:54 Poikilocytosis Not Reportable 03/03/22 03:54 Anisocytosis 1+ 03/03/22 03:54 Microcytosis Not Reportable 03/03/22 03:54 Macrocytosis Not Reportable 03/03/22 03:54 Spherocytes Not Reportable 03/03/22 03:54 Pappenheimer Bodies Not Reportable 03/03/22 03:54 Sickle Cells Not Reportable 03/03/22 03:54 Target Cells Not Reportable 03/03/22 03:54 Tear Drop Cells Not Reportable 03/03/22 03:54 Ovalocytes Not Reportable 03/03/22 03:54 Helmet Cells Not Reportable 03/03/22 03:54 Orellana-Sekiu Bodies Not Reportable 03/03/22 03:54 [place] Rings Not Reportable 03/03/22 03:54 Taylor Cells Not Reportable 03/03/22 03:54 Bite Cells Not Reportable 03/03/22 03:54 Crenated Cell Not Reportable 03/03/22 03:54 Elliptocytes Not Reportable 03/03/22 03:54 Acanthocytes (Spur) Not Reportable 03/03/22 03:54 Rouleaux Not Reportable 03/03/22 03:54 Hemoglobin C Crystals Not Reportable 03/03/22 03:54 Schistocytes Not Reportable 03/03/22 03:54 Malaria parasites Not Reportable 03/03/22 03:54 Cash Bodies Not Reportable 03/03/22 03:54 Hem Pathologist Commnt No 03/03/22 03:54 PT 16.9 Sec. (12.2-14.9) H 02/18/22 21:02 INR 1.20 (0.87-1.13) H 02/18/22 21:02 ABG pH 7.411 pH Units (7.350-7.450) 03/02/22 05:18 ABG pCO2 53.2 mm Hg 03/02/22 05:18 ABG pO2 110.5 mm Hg (80.0-90.0) H 03/02/22 05:18 ABG HCO3 33.0 mmol/L (20.0-26.0) H 03/02/22 05:18 ABG O2 Saturation 97.9 % (95.0-99.0) 03/02/22 05:18 ABG O2 Content 11.8 (0.0-44) 03/02/22 05:18 ABG Base Excess 7.4 mmol/L (-2.0-3.0) H 03/02/22 05:18 ABG Hemoglobin 8.6 gm/dl (14.0-18.0) L 03/02/22 05:18 ABG Carboxyhemoglobin 1.4 % (0.0-5.0) 03/02/22 05:18 ABG Methemoglobin 0.6 % (0.0-1.5) 03/02/22 05:18 Oxyhemoglobin 96.0 % (95.0-99.0) 03/02/22 05:18 FiO2 40 % 03/02/22 05:18 Sodium 142 mmol/L (137-145) 03/04/22 05:32 Potassium 3.8 mmol/L (3.6-5.0) 03/04/22 05:32 Chloride 103.7 mmol/L (98-107) 03/04/22 05:32 Carbon Dioxide 30 mmol/L (22-30) 03/04/22 05:32 Anion Gap 12 mmol/L 03/04/22 05:32 BUN 20 mg/dL (9-20) 03/04/22 05:32 Creatinine 0.7 mg/dL (0.8-1.3) L 03/04/22 05:32 Estimated GFR > 60 ml/min 03/04/22 05:32 BUN/Creatinine Ratio 29 % 03/04/22 05:32 Glucose 135 mg/dL (75-100) H 03/04/22 05:32 POC Glucose 114 mg/dL (70-105) H 03/05/22 06:29 Lactic Acid 1.20 mmol/L (0.7-2.0) 02/18/22 21:02 Calcium 8.3 mg/dL (8.4-10.2) L 03/04/22 05:32 Phosphorus 2.80 mg/dL (2.5-4.5) 03/04/22 05:32 Magnesium 2.30 mg/dL (1.7-2.3) 03/04/22 05:32 Total Bilirubin 0.50 mg/dL (0.1-1.2) 02/18/22 21:02 AST 48 units/L (5-40) H 02/18/22 21:02 ALT 64 units/L (7-56) H 02/18/22 21:02 Alkaline Phosphatase 88 units/L (35-129) 02/18/22 21:02 Ammonia 14.0 umol/L (25-60) L 02/18/22 23:22 Troponin T < 0.010 ng/mL (0.00-0.029) 02/18/22 21:02 Total Protein 7.2 g/dL (6.3-8.2) 02/18/22 21:02 Albumin 2.7 g/dL (3.9-5) L 02/18/22 21:02 Albumin/Globulin Ratio 0.6 % 02/18/22 21:02 Urine Color Dark yellow (Yellow) 02/18/22 Unknown Urine Turbidity Clear (Clear) 02/18/22 Unknown Urine pH 7.0 (5.0-7.0) 02/18/22 Unknown Ur Specific [place] 1.015 (1.003-1.030) 02/18/22 Unknown Urine Protein <15 mg/dl mg/dL (Negative) 02/18/22 Unknown Urine Glucose (UA) Negative mg/dL (Negative) 02/18/22 Unknown Urine Ketones Negative mg/dL (Negative) 02/18/22 Unknown Urine Blood Trace (Negative) 02/18/22 Unknown Urine Nitrite Negative (Negative) 02/18/22 Unknown Urine Bilirubin Negative (Negative) 02/18/22 Unknown Urine Urobilinogen < 2.0 mg/dL (<2.0) 02/18/22 Unknown Ur Leukocyte Esterase Negative (Negative) 02/18/22 Unknown Urine WBC (Auto) 2.0 /HPF (0.0-6.0) 02/18/22 Unknown Urine RBC (Auto) 9.0 /HPF (0.0-6.0) 02/18/22 Unknown Urine Mucus Few /HPF 02/18/22 Unknown Urine Opiates Screen Negative 02/18/22 Unknown Urine Methadone Screen Negative 02/18/22 Unknown Ur Barbiturates Screen Negative 02/18/22 Unknown Ur Phencyclidine Scrn Negative 02/18/22 Unknown Ur Amphetamines Screen Negative 02/18/22 Unknown U Benzodiazepines Scrn Negative 02/18/22 Unknown Urine Cocaine Screen Negative 02/18/22 Unknown U Marijuana (THC) Screen Negative 02/18/22 Unknown Drugs of Abuse Note Disclamer 02/18/22 Unknown Plasma/Serum Alcohol < 0.01 % (0-0.07) 02/18/22 21:02 Horowitz/IV: Voiding Method Indwelling Catheter Active Medications - Current Medications Current Medications: Generic Name Dose Route Start Last Admin Trade Name Freq PRN Reason Stop Dose Admin Acetaminophen 650 mg 03/03/22 09:00 Acetaminophen 325 Mg/10.15 Ml Oral Liqd Unit Dose FEEDTUBE Q4H PRN Pain, Mild (1-3); TEMP > 100.4 Albuterol 2.5 mg 02/23/22 16:00 03/05/22 03:49 Albuterol 2.5 Mg/3 Ml Nebu IH 2.5 mg Q4HRT LAZARUS Administration Famotidine 20 mg 02/25/22 10:00 03/04/22 22:27 Famotidine 20 Mg Tab FEEDTUBE 20 mg BID LAZARUS Administration Heparin Sodium (Porcine) 5,000 unit 02/19/22 06:00 03/05/22 05:26 Heparin 5,000 Unit/1 Ml Vial SUB-Q 5,000 unit Q8HR LAZARUS Administration Hydrophilic Ointment 1 applic 02/24/22 15:05 Lip Therapy Vaseline TP Q2HR PRN Dry Lips Levetiracetam 500 mg 02/25/22 22:00 03/04/22 22:27 Levetiracetam 500 Mg/5 Ml Oral Liqd FEEDTUBE 500 mg BID LAZARUS Administration Levothyroxine Sodium 25 mcg 02/26/22 06:00 03/05/22 05:26 Levothyroxine 25 Mcg Tab FEEDTUBE 25 mcg QAM@0600 LAZARUS Administration Magnesium Hydroxide 30 ml 02/19/22 02:02 Magnesium Hydroxide (Mom) Oral Liqd Udc PO Q4H PRN Constipation Morphine Sulfate 2 mg 02/19/22 02:02 Morphine 2 Mg/1 Ml Inj IV Q4H PRN Pain, Moderate (4-6) Morphine Sulfate 4 mg 02/19/22 02:02 Morphine 4 Mg/1 Ml Inj IV Q4H PRN Pain , Severe (7-10) Multi-Ingred Cream/Lotion/Oil/Oint 1 applic 02/24/22 15:05 Mineral Oil/Petrolatum, White Ophth Oint 3.5 Gm OU Q4HR PRN Dry Eye(s) Ondansetron HCl 4 mg 02/19/22 02:02 Ondansetron 4 Mg/2 Ml Inj IV Q8H PRN Nausea And Vomiting Pravastatin Sodium 40 mg 02/25/22 22:00 03/04/22 22:27 Pravastatin 40 Mg Tab FEEDTUBE 40 mg QHS LAZARUS Administration Senna/Docusate Sodium 1 tab 02/24/22 22:00 03/04/22 22:27 Sennosides/Docusate Sodium 8.6/50 Mg Tab FEEDTUBE 1 tab BID LAZARUS Administration Sodium Chloride 10 ml 02/19/22 10:00 03/04/22 22:27 Sodium Chloride 0.9% 10 Ml Flush Syringe IV 10 ml BID LAZARUS Administration Sodium Chloride 10 ml 02/19/22 02:02 03/03/22 14:21 Sodium Chloride 0.9% 10 Ml Flush Syringe IV 10 ml PRN PRN Administration LINE FLUSH Nutrition/Malnutrition Assess - Dietary Evaluation Nutrition/Malnutrition Findings: Nutrition Notes Start: 02/19/22 14:2 9 Freq: Status: Active Protocol: Document 02/28/22 15:34 TIERRA (Rec: 02/28/22 15:46 TIERRA [id number]) Nutrition Notes Initial or Follow up Brief Note Current Diet TF-Vital AF 1.2 Yordy @ 50 ml/hr (from L 02/27). Height 5 ft 3 in Weight 63.2 kg [place] Body Weight (kg) 56.36 BMI 24.7 Weight change and time frame No body weight change reported in 6 days. Weight Status Appropriate Subjective/Other Information RD consult for routine F/U on TF tolerance/continuation. TF continues as prescribed, no further information available at the time, will assess at F /U. Pt was extubated this morning, but soon had to be intubated again, now Pt continues on Mechanical Ventilation, O2 saturation @ 94%, according to Physical Assessment History notes. Percent of energy/protein needs met: Prescribed TF-Vital AF 1.2 Yordy @ 50 ml/hr provides for energy/protein needs (1,450 Kcal/91 g) during LOS, 104% Kcal; 100% AA. #1 Nutrition Diagnosis Inadequate oral intake Comments: Pt was extubated this morning, but soon had to be intubated again, now Pt continues on Mechanical Ventilation, O2 saturation @ 94%, according to Physical Assessment History notes. Diagnosis Progress(for reassessment Continues documentation) Is patient on ventilator? Yes Is Patient Ambulatory and/or Out of Bed No REE-([facility]-confined to bed) 1591.836 Kcal/Kg value to use for calculation 22 Approximate Energy Requirements Using 1390 kcal/Kg Calculation Used for Recommendations Kcal/kg Additional Notes Protein: 1.2-2 g/Kg ABW; 76- 126 g/day. Fluids: 1 ml/Kcal, or as per MD. Nutrition Intervention Nutrition Support: Continue TF-Vital AF 1.2 Yordy @ 50 ml/hr. Flush: 70 ml water Q 4 hr, or as per MD. Kcal 1,450 Protein (gm) 91 Carbohydrates (gm) 134 Fat (gm) 65 Fluid (mL) 980 Fiber (gm) 6 % RDI: 104% Kcal; 100% AA. Goal #1 Provide at least 75% of energy /protein needs through Enteral Feeding during LOS. Goal #2 Adjust the dietary intervention to better serve Pt's needs and clinical conditions during LOS. Follow-Up By: 03/07/22 Additional Comments Continue monitoring on ventilation status, TF tolerance, and BM.
[2022-03-04] MEDS: PRAVASTATIN 40 MG TAB FEEDTUBE SCH (22:27)
[2022-03-05] MEDS: ALBUTEROL 2.5 MG/3 ML NEBU IH SCH ×6 (00:16→20:36)
[2022-03-05] MEDS: HEPARIN 5,000 UNIT/1 ML VIAL SUB-Q SCH ×3 (05:26→21:00)
[2022-03-05] MEDS: LEVOTHYROXINE 25 MCG TAB FEEDTUBE SCH (05:26)
[2022-03-05] MEDS: levETIRAcetam 500 MG/5 ML ORAL LIQD FEEDTUBE SCH ×2 (09:48→21:00)
[2022-03-05] MEDS: SENNOSIDES/DOCUSATE SODIUM 8.6/50 MG TAB FEEDTUBE SCH ×2 (09:49→21:00)
[2022-03-05] MEDS: FAMOTIDINE 20 MG TAB FEEDTUBE SCH ×2 (09:49→21:00)
--- NOTE | 2022-03-05 09:53 | Progress Note ---
Assessment and Plan 61 y/o male with abnormal CT of chest. 03/05/22: Will follow up with ethics today. Awaiting some guidance about consent for trach and peg. This is a medical necessity to liberate patient from mechanical ventilation. Continue supportive measures. Ok with daily PSV trials 03/04/22: Follow up with ethics later this afternoon. Spoke with RT and patient does have cuff leak, will stop steroids. Stopping midodrine as BP is stable and bradycardia likely from this. 03/03/22: Await ethics eval. CM has spoken with state as well. Daily cuff leaks. Will start to wean steroids tomorrow. Midodrine can cause bradycardia. If continues or worsens will stop. Guarded prognosis. 03/02/22: Continue supportive measures. Await ethics consult before surgery consult for trach and peg. no further need for fluid boluses. Will continue str ess dose steroids but have daily air leak checks by RT. Still will need trach, will not attempt extubation again. Guarded prognosis. 03/01/22: Patient is having increased urine output. THis could be the cause of new onset hypotension. Will bolus 2 more liters of LR now and reassess. If this continues may need to work up for SIADH including repeat head CT. Follow up ethics review of case. Will need trach for ventilator liberation. Overall prognosis remains guarded. 02/28/22: Will obtain CT neck, noncontrast to look for airway edema or other possible etiologies for failure. Needs ethics consult as given patient's mental state, inability to clear secretions appropriately, will need trach now that he has failed extubation. However he has no family and no POA so no one to give consent. Continue supportive measures. Guarded prognosis. 02/27/22: Continue improvement of oxygenation. Will drop PEEP down today with goal of being at 6 by in the morning. Will repeat CT scan to confirm improvement as no endobronchial lesion was seen, but also to make sure no parenchymal mass. There was no evidence of extrinsic compression during bronch. Likely extubation tomorrow post CT. 02/26/22: Repeat CXR now. Wean Vent as tolerated. Hopeful extubation soon. Mucous removed. NO ENDOBRONCHIAL LESION/MASS 02/25/22: Bronch tentatively planned for tomorrow with therapeutic scope. Awaiting GI lab to give a time. NPO after midnight. Continue high PEEP 02/24/22: WIll attempt to bronch tomorrow morning. NPO after midnight. Just received word from GI lab they are not able to do bronch tomorrow. Cancel NPO order. Continue to feed patient. Repeat ABG in AM along with CXR. 02/21/22: No new pulm recs for today. Please obtain repeat CXR likely on Thursday. If patient happens to get worse, likely not a candidate for bipap given his weak cough and mental state and inability to communicate. If worsens and requires intubation, will bronch then under emergent circumstances if no POA or family is able to be located. Continue CPT. Will discuss with RT about NT suctioning. 02/20/22: Saw speech while on the floor. Would like patient to be NPO now. Di scussed with nurse on floor and with IMS. Same recs pulm way as yesterday. Would benefit from bronch if able to get consent as this is not emergent. Continue CPT and q shift NT suctioning. Reviewed admission in the past and of note, patient was recently admitted last month and had a CXR done on the 29 of January that was normal. Given this patient's medical history and the history that I obtained from the nursing staff that at the snf he was eating solid foods, I suspect that this is aspiration, possibly of a foreign body (most likely food) with atelectasis of the right lower lobe. It is highly unlikely that a mass evolved in size in less than a months time and patient, besides age, has no real risk factors for lung carcinoma. Discussed with the nurse and unfortunately there is no identifiable person that is able to give consent. Bronchoscopy is needed in the case to evaluate to see if lung mass is there vs foreign body, but at this time not able to do. In the meanwhile will recommend the following. 1. Will order CPT with neb therapy 3x daily 2. Suggest maybe NT suctioning q shift. May use nasal trumpet, however do not leave this device in the patient 3. Aspiration precautions 4. Consider speech eval to assess swallowing. Will continue to follow. CCT 31 minutes. Subjective Date of service: 03/05/22 Interval history: Still with some bradycardia but asymptomatic. Remains on the vent. No sedation. Minimal support Objective Vital Signs - 12hr 03/04/22 03/04/22 03/04/22 21:46 22:00 22:16 Temperature Pulse Rate 74 74 73 Pulse Rate [ From Monitor] Pulse Rate [ Posterior Bilateral Throughout] Respiratory 16 16 17 Rate Respiratory Rate [Posterior Bilateral Throughout] Blood Pressure 132/58 127/56 127/56 O2 Sat by Pulse 97 96 96 Oximetry 03/04/22 03/04/22 03/04/22 22:30 22:46 22:52 Temperature Pulse Rate 76 76 71 Pulse Rate [ From Monitor] Pulse Rate [ Posterior Bilateral Throughout] Respiratory 17 16 17 Rate Respiratory Rate [Posterior Bilateral Throughout] Blood Pressure 134/73 134/73 142/49 O2 Sat by Pulse 96 96 95 Oximetry 03/04/22 03/04/22 03/04/22 23:00 23:04 23:16 Temperature Pulse Rate 69 66 72 Pulse Rate [ From Monitor] Pulse Rate [ Posterior Bilateral Throughout] Respiratory 15 17 17 Rate Respiratory Rate [Posterior Bilateral Throughout] Blood Pressure 137/62 134/73 137/62 O2 Sat by Pulse 96 97 96 Oximetry 03/04/22 03/04/22 03/05/22 23:30 23:46 00:00 Temperature 98.8 F Pulse Rate 68 67 62 Pulse Rate [ 65 From Monitor] Pulse Rate [ 68 Posterior Bilateral Throughout] Respiratory 17 15 14 Rate Respiratory 14 Rate [Posterior Bilateral Throughout] Blood Pressure 133/68 133/68 124/59 O2 Sat by Pulse 97 97 98 Oximetry 03/05/22 03/05/22 03/05/22 00:16 00:30 00:46 Temperature Pulse Rate 63 70 68 Pulse Rate [ From Monitor] Pulse Rate [ Posterior Bilateral Throughout] Respiratory 14 13 14 Rate Respiratory Rate [Posterior Bilateral Throughout] Blood Pressure 124/59 133/51 133/51 O2 Sat by Pulse 97 93 93 Oximetry 03/05/22 03/05/22 03/05/22 01:00 01:16 01:30 Temperature Pulse Rate 67 65 65 Pulse Rate [ From Monitor] Pulse Rate [ Posterior Bilateral Throughout] Respiratory 14 14 14 Rate Respiratory Rate [Posterior Bilateral Throughout] Blood Pressure 114/43 114/43 115/46 O2 Sat by Pulse 95 95 95 Oximetry 03/05/22 03/05/22 03/05/22 01:46 02:00 02:16 Temperature Pulse Rate 64 64 72 Pulse Rate [ From Monitor] Pulse Rate [ Posterior Bilateral Throughout] Respiratory 14 14 17 Rate Respiratory Rate [Posterior Bilateral Throughout] Blood Pressure 115/46 117/48 117/48 O2 Sat by Pulse 95 95 95 Oximetry 03/05/22 03/05/22 03/05/22 02:30 02:46 03:00 Temperature Pulse Rate 63 66 62 Pulse Rate [ From Monitor] Pulse Rate [ Posterior Bilateral Throughout] Respiratory 14 14 14 Rate Respiratory Rate [Posterior Bilateral Throughout] Blood Pressure 129/53 129/53 125/54 O2 Sat by Pulse 95 92 96 Oximetry 03/05/22 03/05/22 03/05/22 03:16 03:30 03:41 Temperature Pulse Rate 68 62 69 Pulse Rate [ From Monitor] Pulse Rate [ Posterior Bilateral Throughout] Respiratory 14 14 Rate Respiratory Rate [Posterior Bilateral Throughout] Blood Pressure 125/54 133/57 133/57 O2 Sat by Pulse 90 91 95 Oximetry 03/05/22 03/05/22 03/05/22 03:46 03:51 04:00 Temperature 98.9 F Pulse Rate 68 61 Pulse Rate [ 58 L From Monitor] Pulse Rate [ 60 Posterior Bilateral Throughout] Respiratory 17 14 Rate Respiratory 14 Rate [Posterior Bilateral Throughout] Blood Pressure 133/57 105/46 O2 Sat by Pulse 95 91 Oximetry 03/05/22 03/05/22 03/05/22 04:16 04:30 04:46 Temperature Pulse Rate 63 58 L 65 Pulse Rate [ From Monitor] Pulse Rate [ Posterior Bilateral Throughout] Respiratory 14 14 14 Rate Respiratory Rate [Posterior Bilateral Throughout] Blood Pressure 105/46 103/43 133/57 O2 Sat by Pulse 92 92 95 Oximetry 03/05/22 03/05/22 03/05/22 05:00 05:16 05:30 Temperature Pulse Rate 58 L 60 57 L Pulse Rate [ From Monitor] Pulse Rate [ Posterior Bilateral Throughout] Respiratory 14 14 14 Rate Respiratory Rate [Posterior Bilateral Throughout] Blood Pressure 115/77 115/77 115/77 O2 Sat by Pulse 92 93 94 Oximetry 03/05/22 03/05/22 03/05/22 06:00 06:30 07:00 Temperature Pulse Rate 70 56 L 60 Pulse Rate [ From Monitor] Pulse Rate [ Posterior Bilateral Throughout] Respiratory 15 14 15 Rate Respiratory Rate [Posterior Bilateral Throughout] Blood Pressure 95/67 95/67 108/45 O2 Sat by Pulse 90 94 94 Oximetry 03/05/22 03/05/22 03/05/22 07:28 07:29 07:30 Temperature Pulse Rate 51 L 57 L Pulse Rate [ 52 L From Monitor] Pulse Rate [ Posterior Bilateral Throughout] Respiratory 14 14 Rate Respiratory Rate [Posterior Bilateral Throughout] Blood Pressure 108/45 O2 Sat by Pulse 94 94 Oximetry 03/05/22 03/05/22 03/05/22 07:47 08:00 08:15 Temperature 98.1 F Pulse Rate 58 L 49 L Pulse Rate [ From Monitor] Pulse Rate [ 55 L Posterior Bilateral Throughout] Respiratory 14 Rate Respiratory 18 Rate [Posterior Bilateral Throughout] Blood Pressure 115/57 106/51 O2 Sat by Pulse 86 94 Oximetry Constitutional: other (on NRB) Eyes: non-icteric ENT: oropharynx moist Neck: supple Effort: normal Ascultation: Bilateral: diminished breath sounds, rhonchi Cardiovascular: regular rate and rhythm Gastrointestinal: normoactive bowel sounds, soft, non-tender (on o2 vest in place) Integumentary: normal Extremities: no cyanosis Neurologic: other (awake) CBC and BMP: 03/04/22 05:32 03/04/22 05:32 ABG, PT/INR, D-dimer: ABG ABG pH 7.411 pH Units (7.350-7.450) 03/02/22 05:18 ABG pCO2 53.2 mm Hg 03/02/22 05:18 ABG pO2 110.5 mm Hg (80.0-90.0) H 03/02/22 05:18 ABG O2 Saturation 97.9 % (95.0-99.0) 03/02/22 05:18 PT/INR, D-dimer PT 16.9 Sec. (12.2-14.9) H 02/18/22 21:02 INR 1.20 (0.87-1.13) H 02/18/22 21:02 Abnormal lab findings: Abnormal Labs 02/18/22 02/18/22 02/18/22 19:34 21:02 21:02 WBC RBC Hgb Hct MCV 101 H MCH 34 H RDW 16.1 H Lymph % (Auto) Mcminn % (Auto) 12.4 H Lymph # (Auto) Mcminn # (Auto) 1.2 H Seg Neutrophils % 73.0 H Seg Neuts % (Manual) Lymphocytes % (Manual) Seg Neutrophils # Seg Neutrophils # Man Lymphocytes # (Manual) PT 16.9 H INR 1.20 H ABG pH ABG pO2 ABG HCO3 ABG O2 Saturation ABG Base Excess ABG Hemoglobin Oxyhemoglobin Sodium Potassium Chloride Carbon Dioxide BUN Creatinine Glucose POC Glucose 116 H Calcium Phosphorus AST ALT Ammonia Albumin 02/18/22 02/18/22 02/18/22 21:02 22:45 23:22 WBC RBC Hgb Hct MCV MCH RDW Lymph % (Auto) [place]minn % (Auto) Lymph # (Auto) [place]minn # (Auto) Seg Neutrophils % Seg Neuts % (Manual) Lymphocytes % (Manual) Seg Neutrophils # Seg Neutrophils # Man Lymphocytes # (Manual) PT INR ABG pH ABG pO2 55.6 L ABG HCO3 28.4 H ABG O2 Saturation 91.5 L ABG Base Excess 3.8 H ABG Hemoglobin 13.2 L Oxyhemoglobin 89.6 L Sodium Potassium 5.1 H Chloride Carbon Dioxide BUN Creatinine Glucose 102 H POC Glucose Calcium Phosphorus AST 48 H ALT 64 H Ammonia 14.0 L Albumin 2.7 L 02/20/22 02/20/22 02/23/22 04:59 04:59 06:29 WBC 11.4 H RBC Hgb Hct MCV 103 H MCH 33 H RDW 16.5 H Lymph % (Auto) 5.5 L [place]minn % (Auto) 12.1 H Lymph # (Auto) 0.6 L [place]minn # (Auto) 1.4 H Seg Neutrophils % 81.4 H Seg Neuts % (Manual) Lymphocytes % (Manual) Seg Neutrophils # 9.2 H Seg Neutrophils # Man Lymphocytes # (Manual) PT INR ABG pH ABG pO2 ABG HCO3 ABG O2 Saturation ABG Base Excess ABG Hemoglobin Oxyhemoglobin Sodium Potassium Chloride Carbon Dioxide BUN Creatinine Glucose POC Glucose 113 H Calcium 8.2 L Phosphorus AST ALT Ammonia Albumin 02/23/22 02/23/22 02/24/22 11:22 16:10 00:02 WBC RBC Hgb Hct MCV MCH RDW Lymph % (Auto) [place] % (Auto) Lymph # (Auto) [place]n # (Auto) Seg Neutrophils % Seg Neuts % (Manual) Lymphocytes % (Manual) Seg Neutrophils # Seg Neutrophils # Man Lymphocytes # (Manual) PT INR ABG pH ABG pO2 ABG HCO3 ABG O2 Saturation ABG Base Excess ABG Hemoglobin Oxyhemoglobin Sodium Potassium Chloride Carbon Dioxide BUN Creatinine Glucose POC Glucose 108 H 115 H 109 H Calcium Phosphorus AST ALT Ammonia Albumin 02/24/22 02/24/22 02/24/22 11:05 11:05 13:20 WBC RBC 3.55 L Hgb Hct MCV 100 H MCH 34 H RDW 15.6 H Lymph % (Auto) [place] % (Auto) Lymph # (Auto) [place]n # (Auto) Seg Neutrophils % Seg Neuts % (Manual) Lymphocytes % (Manual) Seg Neutrophils # Seg Neutrophils # Man Lymphocytes # (Manual) PT INR ABG pH ABG pO2 ABG HCO3 ABG O2 Saturation ABG Base Excess ABG Hemoglobin Oxyhemoglobin Sodium 146 H Potassium 3.2 L D Chloride 108.4 H Carbon Dioxide BUN Creatinine 0.5 L Glucose POC Glucose 111 H Calcium 7.9 L Phosphorus 2.20 L AST ALT Ammonia Albumin 02/24/22 02/24/22 02/24/22 16:30 17:03 20:25 WBC RBC Hgb Hct MCV MCH RDW Lymph % (Auto) [place]n % (Auto) Lymph # (Auto) [place]n # (Auto) Seg Neutrophils % Seg Neuts % (Manual) Lymphocytes % (Manual) Seg Neutrophils # Seg Neutrophils # Man Lymphocytes # (Manual) PT INR ABG pH 7.319 L ABG pO2 65.3 L ABG HCO3 31.3 H ABG O2 Saturation 92.2 L ABG Base Excess 3.8 H ABG Hemoglobin 12.0 L Oxyhemoglobin 90.3 L Sodium Potassium Chloride 107.9 H Carbon Dioxide BUN 8 L Creatinine 0.4 L Glucose POC Glucose 108 H Calcium 7.6 L Phosphorus 4.60 H D AST ALT Ammonia Albumin 02/25/22 02/25/22 02/25/22 04:12 04:12 05:05 WBC RBC 3.07 L Hgb 10.2 L Hct 31.5 L MCV 103 H MCH 33 H RDW 15.6 H Lymph % (Auto) [place] % (Auto) Lymph # (Auto) [place]n # (Auto) Seg Neutrophils % Seg Neuts % (Manual) Lymphocytes % (Manual) Seg Neutrophils # Seg Neutrophils # Man Lymphocytes # (Manual) PT INR ABG pH ABG pO2 ABG HCO3 32.5 H ABG O2 Saturation ABG Base Excess 5.6 H ABG Hemoglobin 10.8 L Oxyhemoglobin 94.8 L Sodium Potassium 3.5 L Chloride 107.7 H Carbon Dioxide BUN Creatinine 0.5 L Glucose POC Glucose Calcium 7.0 L Phosphorus AST ALT Ammonia Albumin 02/25/22 02/25/22 02/26/22 12:05 18:33 00:07 WBC RBC Hgb Hct MCV MCH RDW Lymph % (Auto) [place] % (Auto) Lymph # (Auto) [place]n # (Auto) Seg Neutrophils % Seg Neuts % (Manual) Lymphocytes % (Manual) Seg Neutrophils # Seg Neutrophils # Man Lymphocytes # (Manual) PT INR ABG pH ABG pO2 ABG HCO3 ABG O2 Saturation ABG Base Excess ABG Hemoglobin Oxyhemoglobin Sodium Potassium Chloride Carbon Dioxide BUN Creatinine Glucose POC Glucose 127 H 125 H 114 H Calcium Phosphorus AST ALT Ammonia Albumin 02/26/22 02/26/22 02/26/22 03:30 04:42 11:34 WBC RBC Hgb Hct MCV MCH RDW Lymph % (Auto) [place] % (Auto) Lymph # (Auto) [place]n # (Auto) Seg Neutrophils % Seg Neuts % (Manual) Lymphocytes % (Manual) Seg Neutrophils # Seg Neutrophils # Man Lymphocytes # (Manual) PT INR ABG pH ABG pO2 143.2 H ABG HCO3 33.2 H ABG O2 Saturation ABG Base Excess 6.5 H ABG Hemoglobin 9.4 L Oxyhemoglobin Sodium Potassium Chloride Carbon Dioxide 32 H BUN Creatinine 0.7 L Glucose POC Glucose 114 H Calcium 8.0 L Phosphorus AST ALT Ammonia Albumin 02/26/22 02/26/22 02/27/22 18:17 23:37 04:19 WBC 13.7 H RBC 2.78 L Hgb 9.3 L Hct 28.5 L MCV 103 H MCH 33 H RDW 16.3 H Lymph % (Auto) [place] % (Auto) Lymph # (Auto) [place]n # (Auto) Seg Neutrophils % Seg Neuts % (Manual) Lymphocytes % (Manual) Seg Neutrophils # Seg Neutrophils # Man Lymphocytes # (Manual) PT INR ABG pH ABG pO2 ABG HCO3 ABG O2 Saturation ABG Base Excess ABG Hemoglobin Oxyhemoglobin Sodium Potassium Chloride Carbon Dioxide BUN Creatinine Glucose POC Glucose 111 H 117 H Calcium Phosphorus AST ALT Ammonia Albumin 02/27/22 02/27/22 02/27/22 04:19 04:35 05:27 WBC RBC Hgb Hct MCV MCH RDW Lymph % (Auto) [place] % (Auto) Lymph # (Auto) [place]n # (Auto) Seg Neutrophils % Seg Neuts % (Manual) Lymphocytes % (Manual) Seg Neutrophils # Seg Neutrophils # Man Lymphocytes # (Manual) PT INR ABG pH ABG pO2 96.3 H ABG HCO3 34.9 H ABG O2 Saturation ABG Base Excess 8.1 H ABG Hemoglobin Oxyhemoglobin Sodium Potassium Chloride Carbon Dioxide 31 H BUN Creatinine 0.6 L Glucose 107 H POC Glucose 133 H Calcium 7.8 L Phosphorus AST ALT Ammonia Albumin 02/27/22 02/27/22 02/28/22 11:15 23:35 03:38 WBC 13.3 H RBC 3.05 L Hgb 10.2 L Hct 30.7 L MCV 101 H MCH 33 H RDW 16.1 H Lymph % (Auto) [place] % (Auto) Lymph # (Auto) [place] # (Auto) Seg Neutrophils % Seg Neuts % (Manual) Lymphocytes % (Manual) Seg Neutrophils # Seg Neutrophils # Man Lymphocytes # (Manual) PT INR ABG pH ABG pO2 ABG HCO3 ABG O2 Saturation ABG Base Excess ABG Hemoglobin Oxyhemoglobin Sodium Potassium Chloride Carbon Dioxide BUN Creatinine Glucose POC Glucose 129 H 122 H Calcium Phosphorus AST ALT Ammonia Albumin 02/28/22 02/28/22 02/28/22 04:50 05:30 09:30 WBC RBC Hgb Hct MCV MCH RDW Lymph % (Auto) [place] % (Auto) Lymph # (Auto) [place]n # (Auto) Seg Neutrophils % Seg Neuts % (Manual) Lymphocytes % (Manual) Seg Neutrophils # Seg Neutrophils # Man Lymphocytes # (Manual) PT INR ABG pH 7.451 H 7.488 H ABG pO2 77.0 L ABG HCO3 37.1 H 34.6 H ABG O2 Saturation ABG Base Excess 11.5 H 10.1 H ABG Hemoglobin 10.1 L 10.0 L Oxyhemoglobin Sodium Potassium Chloride Carbon Dioxide BUN Creatinine Glucose POC Glucose 121 H Calcium Phosphorus AST ALT Ammonia Albumin 02/28/22 02/28/22 03/01/22 11:36 23:07 04:27 WBC 12.5 H RBC 2.85 L Hgb 9.5 L Hct 28.6 L MCV 101 H MCH 33 H RDW 15.7 H Lymph % (Auto) [place] % (Auto) Lymph # (Auto) [place]n # (Auto) Seg Neutrophils % Seg Neuts % (Manual) Lymphocytes % (Manual) Seg Neutrophils # Seg Neutrophils # Man Lymphocytes # (Manual) PT INR ABG pH ABG pO2 ABG HCO3 ABG O2 Saturation ABG Base Excess ABG Hemoglobin Oxyhemoglobin Sodium Potassium Chloride Carbon Dioxide BUN Creatinine Glucose POC Glucose 112 H 107 H Calcium Phosphorus AST ALT Ammonia Albumin 03/01/22 03/01/22 03/01/22 04:27 05:05 11:29 WBC RBC Hgb Hct MCV MCH RDW Lymph % (Auto) [place] % (Auto) Lymph # (Auto) [place]n # (Auto) Seg Neutrophils % Seg Neuts % (Manual) Lymphocytes % (Manual) Seg Neutrophils # Seg Neutrophils # Man Lymphocytes # (Manual) PT INR ABG pH ABG pO2 ABG HCO3 ABG O2 Saturation ABG Base Excess ABG Hemoglobin Oxyhemoglobin Sodium 147 H D Potassium Chloride Carbon Dioxide 34 H BUN Creatinine 0.6 L Glucose 128 H POC Glucose 119 H 121 H Calcium 7.9 L Phosphorus AST ALT Ammonia Albumin 03/01/22 03/01/22 03/02/22 16:15 23:57 05:18 WBC RBC Hgb Hct MCV MCH RDW Lymph % (Auto) [place] % (Auto) Lymph # (Auto) [place]minn # (Auto) Seg Neutrophils % Seg Neuts % (Manual) Lymphocytes % (Manual) Seg Neutrophils # Seg Neutrophils # Man Lymphocytes # (Manual) PT INR ABG pH ABG pO2 110.5 H ABG HCO3 33.0 H ABG O2 Saturation ABG Base Excess 7.4 H ABG Hemoglobin 8.6 L Oxyhemoglobin Sodium Potassium Chloride Carbon Dioxide BUN Creatinine Glucose POC Glucose 134 H 140 H Calcium Phosphorus AST ALT Ammonia Albumin 03/02/22 03/02/22 03/02/22 05:53 09:04 09:04 WBC 15.0 H RBC 3.00 L Hgb 9.7 L Hct 30.7 L MCV 102 H MCH RDW 16.6 H Lymph % (Auto) [place] % (Auto) Lymph # (Auto) [place]n # (Auto) Seg Neutrophils % Seg Neuts % (Manual) Lymphocytes % (Manual) Seg Neutrophils # Seg Neutrophils # Man Lymphocytes # (Manual) PT INR ABG pH ABG pO2 ABG HCO3 ABG O2 Saturation ABG Base Excess ABG Hemoglobin Oxyhemoglobin Sodium Potassium Chloride Carbon Dioxide 31 H BUN Creatinine 0.6 L Glucose 157 H POC Glucose 158 H Calcium 7.9 L Phosphorus AST ALT Ammonia Albumin 03/02/22 03/02/22 03/02/22 11:36 16:25 23:17 WBC RBC Hgb Hct MCV MCH RDW Lymph % (Auto) [place] % (Auto) Lymph # (Auto) [place]n # (Auto) Seg Neutrophils % Seg Neuts % (Manual) Lymphocytes % (Manual) Seg Neutrophils # Seg Neutrophils # Man Lymphocytes # (Manual) PT INR ABG pH ABG pO2 ABG HCO3 ABG O2 Saturation ABG Base Excess ABG Hemoglobin Oxyhemoglobin Sodium Potassium Chloride Carbon Dioxide BUN Creatinine Glucose POC Glucose 160 H 132 H 157 H Calcium Phosphorus AST ALT Ammonia Albumin 03/03/22 03/03/22 03/03/22 03:54 03:54 05:27 WBC 19.5 H RBC 2.79 L Hgb 9.0 L Hct 28.6 L MCV 102 H MCH RDW 16.2 H Lymph % (Auto) [place] % (Auto) Lymph # (Auto) [place]n # (Auto) Seg Neutrophils % Seg Neuts % (Manual) 95.0 H Lymphocytes % (Manual) 3.0 L Seg Neutrophils # Seg Neutrophils # Man 18.5 H Lymphocytes # (Manual) 0.6 L PT INR ABG pH ABG pO2 ABG HCO3 ABG O2 Saturation ABG Base Excess ABG Hemoglobin Oxyhemoglobin Sodium Potassium Chloride Carbon Dioxide BUN Creatinine 0.6 L Glucose 130 H POC Glucose 149 H Calcium 8.1 L Phosphorus AST ALT Ammonia Albumin 03/03/22 03/03/22 03/04/22 11:13 17:30 00:02 WBC RBC Hgb Hct MCV MCH RDW Lymph % (Auto) [place] % (Auto) Lymph # (Auto) [place] # (Auto) Seg Neutrophils % Seg Neuts % (Manual) Lymphocytes % (Manual) Seg Neutrophils # Seg Neutrophils # Man Lymphocytes # (Manual) PT INR ABG pH ABG pO2 ABG HCO3 ABG O2 Saturation ABG Base Excess ABG Hemoglobin Oxyhemoglobin Sodium Potassium Chloride Carbon Dioxide BUN Creatinine Glucose POC Glucose 139 H 138 H 157 H Calcium Phosphorus AST ALT Ammonia Albumin 03/04/22 03/04/22 03/04/22 05:32 05:32 05:48 WBC 16.1 H RBC 2.81 L Hgb 9.3 L Hct 28.8 L MCV 102 H MCH 33 H RDW 16.7 H Lymph % (Auto) [place] % (Auto) Lymph # (Auto) [place] # (Auto) Seg Neutrophils % Seg Neuts % (Manual) Lymphocytes % (Manual) Seg Neutrophils # Seg Neutrophils # Man Lymphocytes # (Manual) PT INR ABG pH ABG pO2 ABG HCO3 ABG O2 Saturation ABG Base Excess ABG Hemoglobin Oxyhemoglobin Sodium Potassium Chloride Carbon Dioxide BUN Creatinine 0.7 L Glucose 135 H POC Glucose 145 H Calcium 8.3 L Phosphorus AST ALT Ammonia Albumin 03/04/22 03/04/22 03/05/22 11:34 16:29 00:28 WBC RBC Hgb Hct MCV MCH RDW Lymph % (Auto) [place] % (Auto) Lymph # (Auto) [place] # (Auto) Seg Neutrophils % Seg Neuts % (Manual) Lymphocytes % (Manual) Seg Neutrophils # Seg Neutrophils # Man Lymphocytes # (Manual) PT INR ABG pH ABG pO2 ABG HCO3 ABG O2 Saturation ABG Base Excess ABG Hemoglobin Oxyhemoglobin Sodium Potassium Chloride Carbon Dioxide BUN Creatinine Glucose POC Glucose 148 H 140 H 116 H Calcium Phosphorus AST ALT Ammonia Albumin 03/05/22 06:29 WBC RBC Hgb Hct MCV MCH RDW Lymph % (Auto) [place] % (Auto) Lymph # (Auto) [place] # (Auto) Seg Neutrophils % Seg Neuts % (Manual) Lymphocytes % (Manual) Seg Neutrophils # Seg Neutrophils # Man Lymphocytes # (Manual) PT INR ABG pH ABG pO2 ABG HCO3 ABG O2 Saturation ABG Base Excess ABG Hemoglobin Oxyhemoglobin Sodium Potassium Chloride Carbon Dioxide BUN Creatinine Glucose POC Glucose 114 H Calcium Phosphorus AST ALT Ammonia Albumin
--- NOTE | 2022-03-05 13:35 | Progress Note ---
<KEATON GOLD - Last Filed: 03/05/22 18:53> Assessment and Plan Assessment and plan: This is a 51-year-old male with HTN, seizure disorder, Down syndrome, HLD, partial blindness admitted with aspiration pneumonia, probable bronchogenic carcinoma, acute hypoxic respiratory failure and acute encephalopathy Hospital course to date: 02/19/2022. Consult pulmonary for further evaluation and possible bronchoscopy. I suspect patient has component of aspiration pneumonia as well. We will obtain a speech therapy evaluation for swallowing and start empiric antibiotics. Continue O2 supplementation to maintain sats greater than 92%. 02/20/2022. Pulmonary feels that the abnormality seen on CT scan is highly unlikely for a mass given negative chest x-ray 1 month ago and no risk factors. Etiology is likely secondary to aspiration from possibly a foreign body most likely food with atelectasis of the right lower lobe. Bronchoscopy is needed in the case to evaluate to see if lung mass is there vs foreign body, but at this time not able to do because no identifiable person that is able to give consent. Continue aspiration precautions and continue speech therapy evaluation for swallowing. Keep n.p.o. for now 02/21/2022. Patient remains NPO. Consider DHT placement. Follow-up with speech therapy evaluation. Pulmonology to consider bronchoscopy if able to obtain consent. Continue IV antibiotics for aspiration pneumonia 02/22/2022. Patient remains NPO. Consider DHT placement. Follow-up with speech therapy evaluation. Pulmonology to consider bronchoscopy if able to obtain consent. Continue IV antibiotics for aspiration pneumonia 02/23/2022. DHT placed yesterday. TF initiated for nutritional support. Patient currently with strict NPO. Aspiration precautions. Pulmonology to consider bronchoscopy if able to obtain consent. Continue IV antibiotics for aspiration pneumonia 02/24: Patient was transferred to the ICU for further monitoring. This morning patient remained on high flow nasal cannula on 40 L/100% and despite repeated nasotracheal suctioning patient SPO2 remained in the 80s. Patient was placed on nonrebreather and SPO2 increased to upper 80s. Patient was subsequently intubated by anesthesia. Started on sedation. 02/25: Patient remains sedated on fentanyl, potassium and magnesium repleted. IV fluids and amlodipine discontinued. Possible bronchoscopy tomorrow. 02/26: Patient had a bronchoscopy today which showed mucus and no endobronchial lesions or masses. FiO2 was increased to 100 during and postprocedure weaning as tolerated. Repeat CXR is much improved after bronc. Given 1 L LR bolus due to hypotension. No acute events reported overnight. 02/27: Decreased PEEP, will repeat CT of chest. no acute changes overnight. 02/28: Patient was extubated today however had to be be intubated shortly after. Patient ETT looked mispositioned on x-ray and Dr. Alonzo did do a bedside bronc. Patient was briefly hypotensive and on Levophed postintubation however Levophed was quickly titrated off and patient did not require central line. No acute events reported overnight. Will obtain CT neck d/t difficulty intubating. Ethic committee consulted. 03/04: Overnight patient was hypotensive and started on IVF. Patient started on steroids as no air leak noted and hypotension and given 2 L LR 03/05: Overnight patient received bolus per RN report, no orders seen. Continue supportive care 03/03: SB on the monitor, HR as low as 37, VSS. Will continue to monitor for now. Awaiting on desicion from [facility] for possible trach and PEG. Continue daily air leak per [facility] 03/04: MAIDA overnight. Remains stable on the vent. Awaiting on desicion from [facility] for possible trach and PEG. Continue current supportive measures 03/05: MAIDA overnight. Awaiting on desicion from [facility] for possible trach and PEG. Midodrine held yesterday, HR improved. Continue current supportive measures. Daily PSV trial as tolerated per [facility] Neuro: Acute encephalopathy, h/o seizure disorder, Down syndrome, partial blindness -Patient currently sedated with propofol -RASS goal 0 to -1 -Reorientation as needed -Maintain sleep-wake cycle -aspiration/seizure precautions -As needed analgesia -CT head showed no acute abnormality -Continue Keppra Cardiac: Hypotension, h/o HTN, HLD -Cardiology consulted, appreciate recommendations -Blood pressure monitoring per protocol -d/c amlodipine -Midodrine TID- held due to bradycardia. BP stable Respiratory: Acute hypoxic respiratory failure, r/o bronchogenic carcinoma -[facility] consulted, appreciate recommendations -Intubated on 02/24 with a 8.0 at 23 at the lips but extubated 02/28 -reintubated 02/28 with 8.0 OETT -Vent settings: AC rate 14, TV 360, PEEP 6, FO2 40% -See RT notes for titration -VAP bundle -SPO2 monitoring -02/18 CTA chest showed no evidence of pulmonary embolism, suspected bronchogenic carcinoma with associated obstruction of the right lower lobe proximal bronchus segment, 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 adenopathy and suspected to left lower lobe metastatic nodule -02/26 Bronch->mucous, no lesion noted -02/27 CT chest showed right mainstem bronchus patent with small amount of interval bronchial fluid which may be mucus (this may account for the appearance of the prior CTA chest fluid-filled airway rather than entering bronchial lesion), previously seen complete left lower lobe since related to bronchial occlusion has significantly improved, there is persistent compressive atelectasis in the right lower lung secondary to the pleural effusion, bilateral pleural effusions, right lung pneumonia -CT neck showed no acute changes - IV Steroids stopped GI: Moderate protein calorie malnutrition -PPI -NTR consulted for tube feedings -BR: Senokot S : Hypernatremia (resolved) -FWF 200 ml q4 hr -Monitor intake and output -Renally dose medications -Avoid nephrotoxic medications -Trend BMP ID: Aspiration PNA -S/p Rocephin for 5 days (02/19-02/24) -Monitor WBC and temperature curve Endo: NAD -Avoid hypoglycemia -Accu-Cheks every 6 -Avoid hypoglycemia Heme: NAD -Trend CBC -Transfuse hemoglobin less than 7 -SCDs to BLE while in bed The high probability of a clinically significant, sudden or life threatening deterioration of the [resp] system(s) required my full and direct attention, intervention and personal management. The aggregate critical care time was [60] minutes. This time is in addition to time spent performing reported procedures but includes the following: [x] Data Review and interpretation [x] Patient assessment and monitoring of vital signs [x] Documentation [x] Medication orders and management Disposition Plan: ICU Total Time Spent with Patient (Minutes): 60 History Interval history: Patient seen and examined at the bedside. Remains stable on low vent setting, not on any sedation. Open eyes spontaneously and move extremities but does not follow any commands. SB/SR on the monitor this am, VSS. MAIDA overnight Hospitalist Physical - Physical exam Narrative exam: General appearance: Present: no acute distress, well-nourished, obese - EENT Eyes: Present: PERRL - Neck Neck: Present: normal ROM - Respiratory Respiratory effort: normal Respiratory: bilateral: rhonchi - Cardiovascular Rhythm: regular Heart Sounds: Present: S1 & S2 - Extremities Extremities: no ischemia, pulses intact, pulses symmetrical Extremity abnormal: edema - Peripheral Assessment Generalized Edema Type: Non-pitting Edema Degree: 1+ Capillary Refill: < 3 seconds Skin Temperature: Warm Peripheral Pulses: within normal limits - Abdominal General gastrointestinal: soft, non-distended, normal bowel sounds - Integumentary Integumentary: Present: warm, dry - Psychiatric Psychiatric: other (Intubated, unresponsive. Not on any sedations) - Neurologic Neurologic: moves all extremities, other (Intubated, unresponsive. Not on any sedations) - Allied Health Allied health notes reviewed: nursing, case management - Constitutional Vitals: Temp Pulse Resp BP Pulse Ox 98.5 F 79 17 122/69 96 03/05/22 11:26 03/05/22 13:00 03/05/22 13:00 03/05/22 13:00 03/05/22 13:00 HEART Score - HEART Score Troponin: Troponin T < 0.010 ng/mL (0.00-0.029) 02/18/22 21:02 Results - Labs CBC & Chem 7: 03/04/22 05:32 03/04/22 05:32 Labs: Laboratory Last Values WBC 16.1 K/mm3 (4.5-11.0) H 03/04/22 05:32 RBC 2.81 M/mm3 (3.65-5.03) L 03/04/22 05:32 Hgb 9.3 gm/dl (11.8-15.2) L 03/04/22 05:32 Hct 28.8 % (35.5-45.6) L 03/04/22 05:32 MCV 102 fl (84-94) H 03/04/22 05:32 MCH 33 pg (28-32) H 03/04/22 05:32 MCHC 32 % (32-34) 03/04/22 05:32 RDW 16.7 % (13.2-15.2) H 03/04/22 05:32 Plt Count 320 K/mm3 (140-440) 03/04/22 05:32 Lymph % (Auto) 5.5 % (13.4-35.0) L 02/20/22 04:59 [place] % (Auto) 12.1 % (0.0-7.3) H 02/20/22 04:59 Eos % (Auto) 0.2 % (0.0-4.3) 02/20/22 04:59 Baso % (Auto) 0.8 % (0.0-1.8) 02/20/22 04:59 Lymph # (Auto) 0.6 K/mm3 (1.2-5.4) L 02/20/22 04:59 [place] # (Auto) 1.4 K/mm3 (0.0-0.8) H 02/20/22 04:59 Eos # (Auto) 0.0 K/mm3 (0.0-0.4) 02/20/22 04:59 Baso # (Auto) 0.1 K/mm3 (0.0-0.1) 02/20/22 04:59 Add Manual Diff Complete 03/03/22 03:54 Total Counted 100 03/03/22 03:54 Seg Neutrophils % 81.4 % (40.0-70.0) H 02/20/22 04:59 Seg Neuts % (Manual) 95.0 % (40.0-70.0) H 03/03/22 03:54 Band Neutrophils % 0 % 03/03/22 03:54 Lymphocytes % (Manual) 3.0 % (13.4-35.0) L 03/03/22 03:54 Reactive Lymphs % (Man) 0 % 03/03/22 03:54 Monocytes % (Manual) 2.0 % (0.0-7.3) 03/03/22 03:54 Eosinophils % (Manual) 0 % (0.0-4.3) 03/03/22 03:54 Basophils % (Manual) 0 % (0.0-1.8) 03/03/22 03:54 Metamyelocytes % 0 % 03/03/22 03:54 Myelocytes % 0 % 03/03/22 03:54 Promyelocytes % 0 % 03/03/22 03:54 Blast Cells % 0 % 03/03/22 03:54 Nucleated RBC % Not Reportable 03/03/22 03:54 Seg Neutrophils # 9.2 K/mm3 (1.8-7.7) H 02/20/22 04:59 Seg Neutrophils # Man 18.5 K/mm3 (1.8-7.7) H 03/03/22 03:54 Band Neutrophils # 0.0 K/mm3 03/03/22 03:54 Lymphocytes # (Manual) 0.6 K/mm3 (1.2-5.4) L 03/03/22 03:54 Abs React Lymphs (Man) 0.0 K/mm3 03/03/22 03:54 Monocytes # (Manual) 0.4 K/mm3 (0.0-0.8) 03/03/22 03:54 Eosinophils # (Manual) 0.0 K/mm3 (0.0-0.4) 03/03/22 03:54 Basophils # (Manual) 0.0 K/mm3 (0.0-0.1) 03/03/22 03:54 Metamyelocytes # 0.0 K/mm3 03/03/22 03:54 Myelocytes # 0.0 K/mm3 03/03/22 03:54 Promyelocytes # 0.0 K/mm3 03/03/22 03:54 Blast Cells # 0.0 K/mm3 03/03/22 03:54 WBC Morphology Not Reportable 03/03/22 03:54 Hypersegmented Neuts Not Reportable 03/03/22 03:54 Hyposegmented Neuts Not Reportable 03/03/22 03:54 Hypogranular Neuts Not Reportable 03/03/22 03:54 Smudge Cells Not Reportable 03/03/22 03:54 Toxic Granulation Not Reportable 03/03/22 03:54 Toxic Vacuolation Not Reportable 03/03/22 03:54 Dohle Bodies Not Reportable 03/03/22 03:54 Pelger-Huet Anomaly Not Reportable 03/03/22 03:54 Lakshmi Rods Not Reportable 03/03/22 03:54 Platelet Estimate Consistent w auto 03/03/22 03:54 Clumped Platelets Not Reportable 03/03/22 03:54 Plt Clumps, EDTA Not Reportable 03/03/22 03:54 Large Platelets Not Reportable 03/03/22 03:54 Giant Platelets Not Reportable 03/03/22 03:54 Platelet Satelliting Not Reportable 03/03/22 03:54 Plt Morphology Comment Not Reportable 03/03/22 03:54 RBC Morphology Not Reportable 03/03/22 03:54 Dimorphic RBCs Not Reportable 03/03/22 03:54 Polychromasia Not Reportable 03/03/22 03:54 Hypochromasia Not Reportable 03/03/22 03:54 Poikilocytosis Not Reportable 03/03/22 03:54 Anisocytosis 1+ 03/03/22 03:54 Microcytosis Not Reportable 03/03/22 03:54 Macrocytosis Not Reportable 03/03/22 03:54 Spherocytes Not Reportable 03/03/22 03:54 Pappenheimer Bodies Not Reportable 03/03/22 03:54 Sickle Cells Not Reportable 03/03/22 03:54 Target Cells Not Reportable 03/03/22 03:54 Tear Drop Cells Not Reportable 03/03/22 03:54 Ovalocytes Not Reportable 03/03/22 03:54 Helmet Cells Not Reportable 03/03/22 03:54 [place] Bodies Not Reportable 03/03/22 03:54 Purvis Rings Not Reportable 03/03/22 03:54 [place] Cells Not Reportable 03/03/22 03:54 Bite Cells Not Reportable 03/03/22 03:54 Crenated Cell Not Reportable 03/03/22 03:54 Elliptocytes Not Reportable 03/03/22 03:54 Acanthocytes (Spur) Not Reportable 03/03/22 03:54 Rouleaux Not Reportable 03/03/22 03:54 Hemoglobin C Crystals Not Reportable 03/03/22 03:54 Schistocytes Not Reportable 03/03/22 03:54 Malaria parasites Not Reportable 03/03/22 03:54 Cash Bodies Not Reportable 03/03/22 03:54 Hem Pathologist Commnt No 03/03/22 03:54 PT 16.9 Sec. (12.2-14.9) H 02/18/22 21:02 INR 1.20 (0.87-1.13) H 02/18/22 21:02 ABG pH 7.411 pH Units (7.350-7.450) 03/02/22 05:18 ABG pCO2 53.2 mm Hg 03/02/22 05:18 ABG pO2 110.5 mm Hg (80.0-90.0) H 03/02/22 05:18 ABG HCO3 33.0 mmol/L (20.0-26.0) H 03/02/22 05:18 ABG O2 Saturation 97.9 % (95.0-99.0) 03/02/22 05:18 ABG O2 Content 11.8 (0.0-44) 03/02/22 05:18 ABG Base Excess 7.4 mmol/L (-2.0-3.0) H 03/02/22 05:18 ABG Hemoglobin 8.6 gm/dl (14.0-18.0) L 03/02/22 05:18 ABG Carboxyhemoglobin 1.4 % (0.0-5.0) 03/02/22 05:18 ABG Methemoglobin 0.6 % (0.0-1.5) 03/02/22 05:18 Oxyhemoglobin 96.0 % (95.0-99.0) 03/02/22 05:18 FiO2 40 % 03/02/22 05:18 Sodium 142 mmol/L (137-145) 03/04/22 05:32 Potassium 3.8 mmol/L (3.6-5.0) 03/04/22 05:32 Chloride 103.7 mmol/L (98-107) 03/04/22 05:32 Carbon Dioxide 30 mmol/L (22-30) 03/04/22 05:32 Anion Gap 12 mmol/L 03/04/22 05:32 BUN 20 mg/dL (9-20) 03/04/22 05:32 Creatinine 0.7 mg/dL (0.8-1.3) L 03/04/22 05:32 Estimated GFR > 60 ml/min 03/04/22 05:32 BUN/Creatinine Ratio 29 % 03/04/22 05:32 Glucose 135 mg/dL (75-100) H 03/04/22 05:32 POC Glucose 114 mg/dL (70-105) H 03/05/22 06:29 Lactic Acid 1.20 mmol/L (0.7-2.0) 02/18/22 21:02 Calcium 8.3 mg/dL (8.4-10.2) L 03/04/22 05:32 Phosphorus 2.80 mg/dL (2.5-4.5) 03/04/22 05:32 Magnesium 2.30 mg/dL (1.7-2.3) 03/04/22 05:32 Total Bilirubin 0.50 mg/dL (0.1-1.2) 02/18/22 21:02 AST 48 units/L (5-40) H 02/18/22 21:02 ALT 64 units/L (7-56) H 02/18/22 21:02 Alkaline Phosphatase 88 units/L (35-129) 02/18/22 21:02 Ammonia 14.0 umol/L (25-60) L 02/18/22 23:22 Troponin T < 0.010 ng/mL (0.00-0.029) 02/18/22 21:02 Total Protein 7.2 g/dL (6.3-8.2) 02/18/22 21: Albumin 2.7 g/dL (3.9-5) L 02/18/22 21:02 Albumin/Globulin Ratio 0.6 % 02/18/22 21:02 Urine Color Dark yellow (Yellow) 02/18/22 Unknown Urine Turbidity Clear (Clear) 02/18/22 Unknown Urine pH 7.0 (5.0-7.0) 02/18/22 Unknown Ur Specific [place] 1.015 (1.003-1.030) 02/18/22 Unknown Urine Protein <15 mg/dl mg/dL (Negative) 02/18/22 Unknown Urine Glucose (UA) Negative mg/dL (Negative) 02/18/22 Unknown Urine Ketones Negative mg/dL (Negative) 02/18/22 Unknown Urine Blood Trace (Negative) 02/18/22 Unknown Urine Nitrite Negative (Negative) 02/18/22 Unknown Urine Bilirubin Negative (Negative) 02/18/22 Unknown Urine Urobilinogen < 2.0 mg/dL (<2.0) 02/18/22 Unknown Ur Leukocyte Esterase Negative (Negative) 02/18/22 Unknown Urine WBC (Auto) 2.0 /HPF (0.0-6.0) 02/18/22 Unknown Urine RBC (Auto) 9.0 /HPF (0.0-6.0) 02/18/22 Unknown Urine Mucus Few /HPF 02/18/22 Unknown Urine Opiates Screen Negative 02/18/22 Unknown Urine Methadone Screen Negative 02/18/22 Unknown Ur Barbiturates Screen Negative 02/18/22 Unknown Ur Phencyclidine Scrn Negative 02/18/22 Unknown Ur Amphetamines Screen Negative 02/18/22 Unknown U Benzodiazepines Scrn Negative 02/18/22 Unknown Urine Cocaine Screen Negative 02/18/22 Unknown U Marijuana (THC) Screen Negative 02/18/22 Unknown Drugs of Abuse Note Disclamer 02/18/22 Unknown Plasma/Serum Alcohol < 0.01 % (0-0.07) 02/18/22 21:02 Horowitz/IV: Voiding Method Indwelling Catheter Active Medications - Current Medications Current Medications: Generic Name Dose Route Start Last Admin Trade Name Freq PRN Reason Stop Dose Admin Acetaminophen 650 mg 03/03/22 09:00 Acetaminophen 325 Mg/10.15 Ml Oral Liqd Unit Dose FEEDTUBE Q4H PRN Pain, Mild (1-3); TEMP > 100.4 Albuterol 2.5 mg 02/23/22 16:00 03/05/22 11:59 Albuterol 2.5 Mg/3 Ml Nebu IH 2.5 mg Q4HRT LAZARUS Administration Famotidine 20 mg 02/25/22 10:00 03/05/22 09:49 Famotidine 20 Mg Tab FEEDTUBE 20 mg BID LAZARUS Administration Heparin Sodium (Porcine) 5,000 unit 02/19/22 06:00 03/05/22 13:12 Heparin 5,000 Unit/1 Ml Vial SUB-Q 5,000 unit Q8HR LAZARUS Administration Hydrophilic Ointment 1 applic 02/24/22 15:05 Lip Therapy Vaseline TP Q2HR PRN Dry Lips Levetiracetam 500 mg 02/25/22 22:00 03/05/22 09:48 Levetiracetam 500 Mg/5 Ml Oral Liqd FEEDTUBE 500 mg BID LAZARUS Administration Levothyroxine Sodium 25 mcg 02/26/22 06:00 03/05/22 05:26 Levothyroxine 25 Mcg Tab FEEDTUBE 25 mcg QAM@0600 LAZARUS Administration Magnesium Hydroxide 30 ml 02/19/22 02:02 Magnesium Hydroxide (Mom) Oral Liqd Udc PO Q4H PRN Constipation Morphine Sulfate 2 mg 02/19/22 02:02 Morphine 2 Mg/1 Ml Inj IV Q4H PRN Pain, Moderate (4-6) Morphine Sulfate 4 mg 02/19/22 02:02 Morphine 4 Mg/1 Ml Inj IV Q4H PRN Pain , Severe (7-10) Multi-Ingred Cream/Lotion/Oil/Oint 1 applic 02/24/22 15:05 Mineral Oil/Petrolatum, White Ophth Oint 3.5 Gm OU Q4HR PRN Dry Eye(s) Ondansetron HCl 4 mg 02/19/22 02:02 Ondansetron 4 Mg/2 Ml Inj IV Q8H PRN Nausea And Vomiting Pravastatin Sodium 40 mg 02/25/22 22:00 03/04/22 22:27 Pravastatin 40 Mg Tab FEEDTUBE 40 mg QHS LAZARUS Administration Senna/Docusate Sodium 1 tab 02/24/22 22:00 03/05/22 09:49 Sennosides/Docusate Sodium 8.6/50 Mg Tab FEEDTUBE 1 tab BID LAZARUS Administration Sodium Chloride 10 ml 02/19/22 10:00 03/05/22 09:49 Sodium Chloride 0.9% 10 Ml Flush Syringe IV 10 ml BID LAZARUS Administration Sodium Chloride 10 ml 02/19/22 02:02 03/03/22 14:21 Sodium Chloride 0.9% 10 Ml Flush Syringe IV 10 ml PRN PRN Administration LINE FLUSH Nutrition/Malnutrition Assess - Dietary Evaluation Nutrition/Malnutrition Findings: Nutrition Notes Start: 02/19/22 14:29 Freq: Status: Active Protocol: Document 02/28/22 15:34 TIERRA (Rec: 02/28/22 15:46 TIERRA [id number]) Nutrition Notes Initial or Follow up Brief Note Current Diet TF-Vital AF 1.2 [place] @ 50 ml/hr (from L 02/27). Height 5 ft 3 in Weight 63.2 kg Reading Body Weight (kg) 56.36 BMI 24.7 Weight change and time frame No body weight change reported in 6 days. Weight Status Appropriate Subjective/Other Information RD consult for routine F/U on TF tolerance/continuation. TF continues as prescribed, no further information available at the time, will assess at F /U. Pt was extubated this morning, but soon had to be intubated again, now Pt continues on Mechanical Ventilation, O2 saturation @ 94%, according to Physical Assessment History notes. Percent of energy/protein needs met: Prescribed TF-Vital AF 1.2 [place] @ 50 ml/hr provides for energy/protein needs (1,450 Kcal/91 g) during LOS, 104% Kcal; 100% AA. #1 Nutrition Diagnosis Inadequate oral intake Comments: Pt was extubated this morning, but soon had to be intubated again, now Pt continues on Mechanical Ventilation, O2 saturation @ 94%, according to Physical Assessment History notes. Diagnosis Progress(for reassessment Continues documentation) Is patient on ventilator? Yes Is Patient Ambulatory and/or Out of Bed No REE-([facility]-confined to bed) 1591.836 Kcal/Kg value to use for calculation 22 Approximate Energy Requirements Using 1390 kcal/Kg Calculation Used for Recommendations Kcal/kg Additional Notes Protein: 1.2-2 g/Kg ABW; 76- 126 g/day. Fluids: 1 ml/Kcal, or as per MD. Nutrition Intervention Nutrition Support: Continue TF-Vital AF 1.2 [place] @ 50 ml/hr. Flush: 70 ml water Q 4 hr, or as per MD. Kcal 1,450 Protein (gm) 91 Carbohydrates (gm) 134 Fat (gm) 65 Fluid (mL) 980 Fiber (gm) 6 % RDI: 104% Kcal; 100% AA. Goal #1 Provide at least 75% of energy /protein needs through Enteral Feeding during LOS. Goal #2 Adjust the dietary intervention to better serve Pt's needs and clinical conditions during LOS. Follow-Up By: 03/07/22 Additional Comments Continue monitoring on ventilation status, TF tolerance, and BM. <JOAQUIN ROBIN - Last Filed: 03/06/22 07:20> Assessment and Plan Assessment and plan: I saw and evaluated the patient. I agree with the findings and the plan of care as documented in the Nurse Practitioner's~note, with the following corrections and additions. Hospitalist Physical - Constitutional Vitals: Temp Pulse Resp BP Pulse Ox 99.1 F 69 15 98/40 99 03/06/22 04:00 03/06/22 06:00 03/06/22 06:00 03/06/22 06:00 03/06/22 06:00 HEART Score - HEART Score Troponin: Troponin T < 0.010 ng/mL (0.00-0.029) 02/18/22 21:02 Results - Labs CBC & Chem 7: 03/06/22 04:17 03/06/22 04:17 Labs: Laboratory Last Values WBC 13.4 K/mm3 (4.5-11.0) H 03/06/22 04:17 RBC 2.85 M/mm3 (3.65-5.03) L 03/06/22 04:17 Hgb 9.4 gm/dl (11.8-15.2) L 03/06/22 04:17 Hct 29.0 % (35.5-45.6) L 03/06/22 04:17 MCV 102 fl (84-94) H 03/06/22 04:17 MCH 33 pg (28-32) H 03/06/22 04:17 MCHC 32 % (32-34) 03/06/22 04:17 RDW 16.4 % (13.2-15.2) H 03/06/22 04:17 Plt Count 289 K/mm3 (140-440) 03/06/22 04:17 Lymph % (Auto) 5.5 % (13.4-35.0) L 02/20/22 04:59 [place] % (Auto) 12.1 % (0.0-7.3) H 02/20/22 04:59 Eos % (Auto) 0.2 % (0.0-4.3) 02/20/22 04:59 Baso % (Auto) 0.8 % (0.0-1.8) 02/20/22 04:59 Lymph # (Auto) 0.6 K/mm3 (1.2-5.4) L 02/20/22 04:59 [place] # (Auto) 1.4 K/mm3 (0.0-0.8) H 02/20/22 04:59 Eos # (Auto) 0.0 K/mm3 (0.0-0.4) 02/20/22 04:59 Baso # (Auto) 0.1 K/mm3 (0.0-0.1) 02/20/22 04:59 Add Manual Diff Complete 03/03/22 03:54 Total Counted 100 03/03/22 03:54 Seg Neutrophils % 81.4 % (40.0-70.0) H 02/20/22 04:59 Seg Neuts % (Manual) 95.0 % (40.0-70.0) H 03/03/22 03:54 Band Neutrophils % 0 % 03/03/22 03:54 Lymphocytes % (Manual) 3.0 % (13.4-35.0) L 03/03/22 03:54 Reactive Lymphs % (Man) 0 % 03/03/22 03:54 Monocytes % (Manual) 2.0 % (0.0-7.3) 03/03/22 03:54 Eosinophils % (Manual) 0 % (0.0-4.3) 03/03/22 03:54 Basophils % (Manual) 0 % (0.0-1.8) 03/03/22 03:54 Metamyelocytes % 0 % 03/03/22 03:54 Myelocytes % 0 % 03/03/22 03:54 Promyelocytes % 0 % 03/03/22 03:54 Blast Cells % 0 % 03/03/22 03:54 Nucleated RBC % Not Reportable 03/03/22 03:54 Seg Neutrophils # 9.2 K/mm3 (1.8-7.7) H 02/20/22 04:59 Seg Neutrophils # Man 18.5 K/mm3 (1.8-7.7) H 03/03/22 03:54 Band Neutrophils # 0.0 K/mm3 03/03/22 03:54 Lymphocytes # (Manual) 0.6 K/mm3 (1.2-5.4) L 03/03/22 03:54 Abs React Lymphs (Man) 0.0 K/mm3 03/03/22 03:54 Monocytes # (Manual) 0.4 K/mm3 (0.0-0.8) 03/03/22 03:54 Eosinophils # (Manual) 0.0 K/mm3 (0.0-0.4) 03/03/22 03:54 Basophils # (Manual) 0.0 K/mm3 (0.0-0.1) 03/03/22 03:54 Metamyelocytes # 0.0 K/mm3 03/03/22 03:54 Myelocytes # 0.0 K/mm3 03/03/22 03:54 Promyelocytes # 0.0 K/mm3 03/03/22 03:54 Blast Cells # 0.0 K/mm3 03/03/22 03:54 WBC Morphology Not Reportable 03/03/22 03:54 Hypersegmented Neuts Not Reportable 03/03/22 03:54 Hyposegmented Neuts Not Reportable 03/03/22 03:54 Hypogranular Neuts Not Reportable 03/03/22 03:54 Smudge Cells Not Reportable 03/03/22 03:54 Toxic Granulation Not Reportable 03/03/22 03:54 Toxic Vacuolation Not Reportable 03/03/22 03:54 Dohle Bodies Not Reportable 03/03/22 03:54 Pelger-Huet Anomaly Not Reportable 03/03/22 03:54 Lakshmi Rods Not Reportable 03/03/22 03:54 Platelet Estimate Consistent w auto 03/03/22 03:54 Clumped Platelets Not Reportable 03/03/22 03:54 Plt Clumps, EDTA Not Reportable 03/03/22 03:54 Large Platelets Not Reportable 03/03/22 03:54 Giant Platelets Not Reportable 03/03/22 03:54 Platelet Satelliting Not Reportable 03/03/22 03:54 Plt Morphology Comment Not Reportable 03/03/22 03:54 RBC Morphology Not Reportable 03/03/22 03:54 Dimorphic RBCs Not Reportable 03/03/22 03:54 Polychromasia Not Reportable 03/03/22 03:54 Hypochromasia Not Reportable 03/03/22 03:54 Poikilocytosis Not Reportable 03/03/22 03:54 Anisocytosis 1+ 03/03/22 03:54 Microcytosis Not Reportable 03/03/22 03:54 Macrocytosis Not Reportable 03/03/22 03:54 Spherocytes Not Reportable 03/03/22 03:54 Pappenheimer Bodies Not Reportable 03/03/22 03:54 Sickle Cells Not Reportable 03/03/22 03:54 Target Cells Not Reportable 03/03/22 03:54 Tear Drop Cells Not Reportable 03/03/22 03:54 Ovalocytes Not Reportable 03/03/22 03:54 Helmet Cells Not Reportable 03/03/22 03:54 [place] Bodies Not Reportable 03/03/22 03:54 Purvis Rings Not Reportable 03/03/22 03:54 [place] Cells Not Reportable 03/03/22 03:54 Bite Cells Not Reportable 03/03/22 03:54 Crenated Cell Not Reportable 03/03/22 03:54 Elliptocytes Not Reportable 03/03/22 03:54 Acanthocytes (Spur) Not Reportable 03/03/22 03:54 Rouleaux Not Reportable 03/03/22 03:54 Hemoglobin C Crystals Not Reportable 03/03/22 03:54 Schistocytes Not Reportable 03/03/22 03:54 Malaria parasites Not Reportable 03/03/22 03:54 Cash Bodies Not Reportable 03/03/22 03:54 Hem Pathologist Commnt No 03/03/22 03:54 PT 16.9 Sec. (12.2-14.9) H 02/18/22 21:02 INR 1.20 (0.87-1.13) H 02/18/22 21:02 ABG pH 7.411 pH Units (7.350-7.450) 03/02/22 05:18 ABG pCO2 53.2 mm Hg 03/02/22 05:18 ABG pO2 110.5 mm Hg (80.0-90.0) H 03/02/22 05:18 ABG HCO3 33.0 mmol/L (20.0-26.0) H 03/02/22 05:18 ABG O2 Saturation 97.9 % (95.0-99.0) 03/02/22 05:18 ABG O2 Content 11.8 (0.0-44) 03/02/22 05:18 ABG Base Excess 7.4 mmol/L (-2.0-3.0) H 03/02/22 05:18 ABG Hemoglobin 8.6 gm/dl (14.0-18.0) L 03/02/22 05:18 ABG Carboxyhemoglobin 1.4 % (0.0-5.0) 03/02/22 05:18 ABG Methemoglobin 0.6 % (0.0-1.5) 03/02/22 05:18 Oxyhemoglobin 96.0 % (95.0-99.0) 03/02/22 05:18 FiO2 40 % 03/02/22 05:18 Sodium 145 mmol/L (137-145) 03/06/22 04:17 Potassium 3.5 mmol/L (3.6-5.0) L 03/06/22 04:17 Chloride 106.7 mmol/L (98-107) 03/06/22 04:17 Carbon Dioxide 31 mmol/L (22-30) H 03/06/22 04:17 Anion Gap 11 mmol/L 03/06/22 04:17 BUN 20 mg/dL (9-20) 03/06/22 04:17 Creatinine 0.6 mg/dL (0.8-1.3) L 03/06/22 04:17 Estimated GFR > 60 ml/min 03/06/22 04:17 BUN/Creatinine Ratio 33 % 03/06/22 04:17 Glucose 101 mg/dL (75-100) H 03/06/22 04:17 POC Glucose 106 mg/dL (70-105) H 03/06/22 06:06 Lactic Acid 1.20 mmol/L (0.7-2.0) 02/18/22 21:02 Calcium 7.7 mg/dL (8.4-10.2) L 03/06/22 04:17 Phosphorus 2.00 mg/dL (2.5-4.5) L 03/06/22 04:17 Magnesium 1.90 mg/dL (1.7-2.3) 03/06/22 04:17 Total Bilirubin 0.50 mg/dL (0.1-1.2) 02/18/22 21:02 AST 48 units/L (5-40) H 02/18/22 21:02 ALT 64 units/L (7-56) H 02/18/22 21:02 Alkaline Phosphatase 88 units/L (35-129) 02/18/22 21:02 Ammonia 14.0 umol/L (25-60) L 02/18/22 23:22 Troponin T < 0.010 ng/mL (0.00-0.029) 02/18/22 21:02 Total Protein 7.2 g/dL (6.3-8.2) 02/18/22 21:02 Albumin 2.7 g/dL (3.9-5) L 02/18/22 21:02 Albumin/Globulin Ratio 0.6 % 02/18/22 21:02 Urine Color Dark yellow (Yellow) 02/18/22 Unknown Urine Turbidity Clear (Clear) 02/18/22 Unknown Urine pH 7.0 (5.0-7.0) 02/18/22 Unknown Ur Specific [place] 1.015 (1.003-1.030) 02/18/22 Unknown Urine Protein <15 mg/dl mg/dL (Negative) 02/18/22 Unknown Urine Glucose (UA) Negative mg/dL (Negative) 02/18/22 Unknown Urine Ketones Negative mg/dL (Negative) 02/18/22 Unknown Urine Blood Trace (Negative) 02/18/22 Unknown Urine Nitrite Negative (Negative) 02/18/22 Unknown Urine Bilirubin Negative (Negative) 02/18/22 Unknown Urine Urobilinogen < 2.0 mg/dL (<2.0) 02/18/22 Unknown Ur Leukocyte Esterase Negative (Negative) 02/18/22 Unknown Urine WBC (Auto) 2.0 /HPF (0.0-6.0) 02/18/22 Unknown Urine RBC (Auto) 9.0 /HPF (0.0-6.0) 02/18/22 Unknown Urine Mucus Few /HPF 02/18/22 Unknown Urine Opiates Screen Negative 02/18/22 Unknown Urine Methadone Screen Negative 02/18/22 Unknown Ur Barbiturates Screen Negative 02/18/22 Unknown Ur Phencyclidine Scrn Negative 02/18/22 Unknown Ur Amphetamines Screen Negative 02/18/22 Unknown U Benzodiazepines Scrn Negative 02/18/22 Unknown Urine Cocaine Screen Negative 02/18/22 Unknown U Marijuana (THC) Screen Negative 02/18/22 Unknown Drugs of Abuse Note Disclamer 02/18/22 Unknown Plasma/Serum Alcohol < 0.01 % (0-0.07) 02/18/22 21:02 Horowitz/IV: Voiding Method Indwelling Catheter Active Medications - Current Medications Current Medications: Generic Name Dose Route Start Last Admin Trade Name Freq PRN Reason Stop Dose Admin Acetaminophen 650 mg 03/03/22 09:00 Acetaminophen 325 Mg/10.15 Ml Oral Liqd Unit Dose FEEDTUBE Q4H PRN Pain, Mild (1-3); TEMP > 100.4 Albuterol 2.5 mg 02/23/22 16:00 03/06/22 05:26 Albuterol 2.5 Mg/3 Ml Nebu IH 2.5 mg Q4HRT LAZARUS Administration Famotidine 20 mg 02/25/22 10:00 03/05/22 21:00 Famotidine 20 Mg Tab FEEDTUBE 20 mg BID LAZARUS Administration Heparin Sodium (Porcine) 5,000 unit 02/19/22 06:00 03/06/22 06:46 Heparin 5,000 Unit/1 Ml Vial SUB-Q 5,000 unit Q8HR LAZARUS Administration Hydrophilic Ointment 1 applic 02/24/22 15:05 Lip Therapy Vaseline TP Q2HR PRN Dry Lips Levetiracetam 500 mg 02/25/22 22:00 03/05/22 21:00 Levetiracetam 500 Mg/5 Ml Oral Liqd FEEDTUBE 500 mg BID LAZARUS Administration Levothyroxine Sodium 25 mcg 02/26/22 06:00 03/06/22 06:46 Levothyroxine 25 Mcg Tab FEEDTUBE 25 mcg QAM@0600 LAZARUS Administration Magnesium Hydroxide 30 ml 02/19/22 02:02 Magnesium Hydroxide (Mom) Oral Liqd Udc PO Q4H PRN Constipation Morphine Sulfate 2 mg 02/19/22 02:02 Morphine 2 Mg/1 Ml Inj IV Q4H PRN Pain, Moderate (4-6) Morphine Sulfate 4 mg 02/19/22 02:02 Morphine 4 Mg/1 Ml Inj IV Q4H PRN Pain , Severe (7-10) Multi-Ingred Cream/Lotion/Oil/Oint 1 applic 02/24/22 15:05 Mineral Oil/Petrolatum, White Ophth Oint 3.5 Gm OU Q4HR PRN Dry Eye(s) Ondansetron HCl 4 mg 02/19/22 02:02 Ondansetron 4 Mg/2 Ml Inj IV Q8H PRN Nausea And Vomiting Pravastatin Sodium 40 mg 02/25/22 22:00 03/05/22 21:00 Pravastatin 40 Mg Tab FEEDTUBE 40 mg QHS LAZARUS Administration Senna/Docusate Sodium 1 tab 02/24/22 22:00 03/05/22 21:00 Sennosides/Docusate Sodium 8.6/50 Mg Tab FEEDTUBE 1 tab BID LAZARUS Administration Sodium Chloride 10 ml 02/19/22 10:00 03/05/22 21:00 Sodium Chloride 0.9% 10 Ml Flush Syringe IV 10 ml BID LAZARUS Administration Sodium Chloride 10 ml 02/19/22 02:02 03/03/22 14:21 Sodium Chloride 0.9% 10 Ml Flush Syringe IV 10 ml PRN PRN Administration LINE FLUSH Nutrition/Malnutrition Assess - Dietary Evaluation Nutrition/Malnutrition Findings: Nutrition Notes Start: 02/19/22 14:29 Freq: Status: Active Protocol: Document 02/28/22 15:34 TIERRA (Rec: 02/28/22 15:46 TIERRA [id number]) Nutrition Notes Initial or Follow up Brief Note Current Diet TF-Vital AF 1.2 Yordy @ 50 ml/hr (from L 02/27). Height 5 ft 3 in Weight 63.2 kg Reading Body Weight (kg) 56.36 BMI 24.7 Weight change and time frame No body weight change reported in 6 days. Weight Status Appropriate Subjective/Other Information RD consult for routine F/U on TF tolerance/continuation. TF continues as prescribed, no further information available at the time, will assess at F /U. Pt was extubated this morning, but soon had to be intubated again, now Pt continues on Mechanical Ventilation, O2 saturation @ 94%, according to Physical Assessment History notes. Percent of energy/protein needs met: Prescribed TF-Vital AF 1.2 Yordy @ 50 ml/hr provides for energy/protein needs (1,450 Kcal/91 g) during LOS, 104% Kcal; 100% AA. #1 Nutrition Diagnosis Inadequate oral intake Comments: Pt was extubated this morning, but soon had to be intubated again, now Pt continues on Mechanical Ventilation, O2 saturation @ 94%, according to Physical Assessment History notes. Diagnosis Progress(for reassessment Continues documentation) Is patient on ventilator? Yes Is Patient Ambulatory and/or Out of Bed No REE-([facility]-confined to bed) 1591.836 Kcal/Kg value to use for calculation 22 Approximate Energy Requirements Using 1390 kcal/Kg Calculation Used for Recommendations Kcal/kg Additional Notes Protein: 1.2-2 g/Kg ABW; 76- 126 g/day. Fluids: 1 ml/Kcal, or as per MD. Nutrition Intervention Nutrition Support: Continue TF-Vital AF 1.2 Yordy @ 50 ml/hr. Flush: 70 ml water Q 4 hr, or as per MD. Kcal 1,450 Protein (gm) 91 Carbohydrates (gm) 134 Fat (gm) 65 Fluid (mL) 980 Fiber (gm) 6 % RDI: 104% Kcal; 100% AA. Goal #1 Provide at least 75% of energy /protein needs through Enteral Feeding during LOS. Goal #2 Adjust the dietary intervention to better serve Pt's needs and clinical conditions during LOS. Follow-Up By: 03/07/22 Additional Comments Continue monitoring on ventilation status, TF tolerance, and BM.
[2022-03-05] MEDS: PRAVASTATIN 40 MG TAB FEEDTUBE SCH (21:00)
[2022-03-06] MEDS: ALBUTEROL 2.5 MG/3 ML NEBU IH SCH ×7 (00:31→23:18)
[2022-03-06 05:03] LABS: Hemoglobin 9.4 gm/dl (11.8-15.2); Mean Corpuscular HGB Conc 32 % (32-34); Mean Corpuscular Volume 102 fl (84-94); Platelet Count 289 K/mm3 (140-440); Red Blood Count 2.85 M/mm3 (3.65-5.03); Red Cell Distribution Width 16.4 % (13.2-15.2)
[2022-03-06 05:34] LABS: Blood Urea Nitrogen 20 mg/dL (9-20); Calcium 7.7 mg/dL (8.4-10.2); Hemolysis Index 3
[2022-03-06 05:51] LABS: BUN/Creatinine Ratio 33
[2022-03-06] MEDS ORDERED: POTASSIUM CHLORIDE 20 MEQ PACKET FEEDTUBE ONE (06:15)
[2022-03-06] MEDS: LEVOTHYROXINE 25 MCG TAB FEEDTUBE SCH (06:46)
[2022-03-06] MEDS: HEPARIN 5,000 UNIT/1 ML VIAL SUB-Q SCH ×3 (06:46→21:48)
[2022-03-06] MEDS: FAMOTIDINE 20 MG TAB FEEDTUBE SCH ×2 (10:25→21:47)
[2022-03-06] MEDS: SENNOSIDES/DOCUSATE SODIUM 8.6/50 MG TAB FEEDTUBE SCH ×2 (10:25→21:48)
[2022-03-06] MEDS: levETIRAcetam 500 MG/5 ML ORAL LIQD FEEDTUBE SCH ×2 (10:25→21:48)
[2022-03-06] MEDS: K-PHOS NEUTRAL 250 MG TAB FEEDTUBE SCH ×4 (10:25→21:48)
--- NOTE | 2022-03-06 10:32 | Progress Note ---
Assessment and Plan 61 y/o male with abnormal CT of chest. 03/06/22: PSV trials daily. Will discuss with RT. Spoke with ethics. Plan in place and awaiting on news from senior living and state. Continue supportive measures. Patient has been intubated since 02/24/22 and is approaching the 2 week shadi of intubation will need to make decisions soon to avoid unnecessary complications related to prolonged intubation. 03/05/22: Will follow up with ethics today. Awaiting some guidance about consent for trach and peg. This is a medical necessity to liberate patient from mechanical ventilation. Continue supportive measures. Ok with daily PSV trials 03/04/22: Follow up with ethics later this afternoon. Spoke with RT and patient does have cuff leak, will stop steroids. Stopping midodrine as BP is stable and bradycardia likely from this. 03/03/22: Await ethics eval. CM has spoken with state as well. Daily cuff leaks. Will start to wean steroids tomorrow. Midodrine can cause bradycardia. If continues or worsens will stop. Guarded prognosis. 03/02/22: Continue supportive measures. Await ethics consult before surgery consult for trach and peg. no further need for fluid boluses. Will continue stress dose steroids but have daily air leak checks by RT. Still will need trach, will not attempt extubation again. Guarded prognosis. 03/01/22: Patient is having increased urine output. THis could be the cause of new onset hypotension. Will bolus 2 more liters of LR now and reassess. If this continues may need to work up for SIADH including repeat head CT. Follow up ethics review of case. Will need trach for ventilator liberation. Overall prognosis remains guarded. 02/28/22: Will obtain CT neck, noncontrast to look for airway edema or other possible etiologies for failure. Needs ethics consult as given patient's mental state, inability to clear secretions appropriately, will need trach now that he has failed extubation. However he has no family and no POA so no one to give consent. Continue supportive measures. Guarded prognosis. 02/27/22: Continue improvement of oxygenation. Will drop PEEP down today with goal of being at 6 by in the morning. Will repeat CT scan to confirm improvement as no endobronchial lesion was seen, but also to make sure no parenchymal mass. There was no evidence of extrinsic compression during bronch. Likely extubation tomorrow post CT. 02/26/22: Repeat CXR now. Wean Vent as tolerated. Hopeful extubation soon. Mucous removed. NO ENDOBRONCHIAL LESION/MASS 02/25/22: Bronch tentatively planned for tomorrow with therapeutic scope. Awaiting GI lab to give a time. NPO after midnight. Continue high PEEP 02/24/22: WIll attempt to bronch tomorrow morning. NPO after midnight. Just received word from GI lab they are not able to do bronch tomorrow. Cancel NPO order. Continue to feed patient. Repeat ABG in AM along with CXR. 02/21/22: No new pulm recs for today. Please obtain repeat CXR likely on Thursday. If patient happens to get worse, likely not a candidate for bipap given his weak cough and mental state and inability to communicate. If worsens and requires intubation, will bronch then under emergent circumstances if no POA or family is able to be located. Continue CPT. Will discuss with RT about NT suctioning. 02/20/22: Saw speech while on the floor. Would like patient to be NPO now. Discussed with nurse on floor and with IMS. Same recs pulm way as yesterday. Would benefit from bronch if able to get consent as this is not emergent. Continue CPT and q shift NT suctioning. Reviewed admission in the past and of note, patient was recently admitted last month and had a CXR done on the 29 of January that was normal. Given this patient's medical history and the history that I obtained from the nursing staff that at the residential he was eating solid foods, I suspect that this is aspiration, possibly of a foreign body (most likely food) with atelectasis of the right lower lobe. It is highly unlikely that a mass evolved in size in less than a months time and patient, besides age, has no real risk factors for lung carcinoma. Discussed with the nurse and unfortunately there is no identifiable person that is able to give consent. Bronchoscopy is needed in the case to evaluate to see if lung mass is there vs foreign body, but at this time not able to do. In the meanwhile will recommend the following. 1. Will order CPT with neb therapy 3x daily 2. Suggest maybe NT suctioning q shift. May use nasal trumpet, however do not leave this device in the patient 3. Aspiration precautions 4. Consider speech eval to assess swallowing. Will continue to follow. CCT 31 minutes. Subjective Date of service: 03/06/22 Interval history: no acute events. no fever. Mental status is unchanged. Objective Vital Signs - 12hr 03/05/22 03/06/22 03/06/22 23:00 00:00 01:00 Temperature 98.5 F Pulse Rate 59 L 61 51 L Pulse Rate [ Bilateral Throughout] Pulse Rate [ 55 L From Monitor] Pulse Rate [ 52 L Posterior Bilateral Throughout] Respiratory 14 15 14 Rate Respiratory Rate [Bilateral Throughout] Respiratory 14 Rate [Posterior Bilateral Throughout] Blood Pressure 108/85 101/50 102/40 O2 Sat by Pulse 96 96 95 Oximetry 03/06/22 03/06/22 03/06/22 02:00 03:00 04:00 Temperature 99.1 F Pulse Rate 42 L 49 L 47 L Pulse Rate [ Bilateral Throughout] Pulse Rate [ 48 L From Monitor] Pulse Rate [ Posterior Bilateral Throughout] Respiratory 14 14 14 Rate Respiratory Rate [Bilateral Throughout] Respiratory Rate [Posterior Bilateral Throughout] Blood Pressure 107/42 89/36 98/40 O2 Sat by Pulse 96 84 88 Oximetry 03/06/22 03/06/22 03/06/22 05:00 05:26 05:27 Temperature Pulse Rate 43 L 50 L Pulse Rate [ Bilateral Throughout] Pulse Rate [ From Monitor] Pulse Rate [ 56 L Posterior Bilateral Throughout] Respiratory 14 Rate Respiratory Rate [Bilateral Throughout] Respiratory 14 Rate [Posterior Bilateral Throughout] Blood Pressure 87/35 87/35 O2 Sat by Pulse 95 98 Oximetry 03/06/22 03/06/22 03/06/22 06:00 07:27 07:31 Temperature Pulse Rate 69 67 Pulse Rate [ 66 Bilateral Throughout] Pulse Rate [ From Monitor] Pulse Rate [ 65 Posterior Bilateral Throughout] Respiratory 15 Rate Respiratory 14 Rate [Bilateral Throughout] Respiratory 14 Rate [Posterior Bilateral Throughout] Blood Pressure 98/40 96/44 O2 Sat by Pulse 99 98 Oximetry Constitutional: other (on NRB) Eyes: non-icteric ENT: oropharynx moist Neck: supple Effort: normal Ascultation: Bilateral: diminished breath sounds, rhonchi Cardiovascular: regular rate and rhythm Gastrointestinal: normoactive bowel sounds, soft, non-tender (on o2 vest in place) Integumentary: normal Extremities: no cyanosis Neurologic: other (awake) CBC and BMP: 03/06/22 04:17 03/06/22 04:17 ABG, PT/INR, D-dimer: ABG ABG pH 7.411 pH Units (7.350-7.450) 03/02/22 05:18 ABG pCO2 53.2 mm Hg 03/02/22 05:18 ABG pO2 110.5 mm Hg (80.0-90.0) H 03/02/22 05:18 ABG O2 Saturation 97.9 % (95.0-99.0) 03/02/22 05:18 PT/INR, D-dimer PT 16.9 Sec. (12.2-14.9) H 02/18/22 21:02 INR 1.20 (0.87-1.13) H 02/18/22 21:02 Abnormal lab findings: Abnormal Labs 02/18/22 02/18/22 02/18/22 19:34 21:02 21:02 WBC RBC Hgb Hct MCV 101 H MCH 34 H RDW 16.1 H Lymph % (Auto) [place] % (Auto) 12.4 H Lymph # (Auto) [place] # (Auto) 1.2 H Seg Neutrophils % 73.0 H Seg Neuts % (Manual) Lymphocytes % (Manual) Seg Neutrophils # Seg Neutrophils # Man Lymphocytes # (Manual) PT 16.9 H INR 1.20 H ABG pH ABG pO2 ABG HCO3 ABG O2 Saturation ABG Base Excess ABG Hemoglobin Oxyhemoglobin Sodium Potassium Chloride Carbon Dioxide BUN Creatinine Glucose POC Glucose 116 H Calcium Phosphorus AST ALT Ammonia Albumin 02/18/22 02/18/22 02/18/22 21:02 22:45 23:22 WBC RBC Hgb Hct MCV MCH RDW Lymph % (Auto) [place] % (Auto) Lymph # (Auto) [place] # (Auto) Seg Neutrophils % Seg Neuts % (Manual) Lymphocytes % (Manual) Seg Neutrophils # Seg Neutrophils # Man Lymphocytes # (Manual) PT INR ABG pH ABG pO2 55.6 L ABG HCO3 28.4 H ABG O2 Saturation 91.5 L ABG Base Excess 3.8 H ABG Hemoglobin 13.2 L Oxyhemoglobin 89.6 L Sodium Potassium 5.1 H Chloride Carbon Dioxide BUN Creatinine Glucose 102 H POC Glucose Calcium Phosphorus AST 48 H ALT 64 H Ammonia 14.0 L Albumin 2.7 L 02/20/22 02/20/22 02/23/22 04:59 04:59 06:29 WBC 11.4 H RBC Hgb Hct MCV 103 H MCH 33 H RDW 16.5 H Lymph % (Auto) 5.5 L [place] % (Auto) 12.1 H Lymph # (Auto) 0.6 L [place] # (Auto) 1.4 H Seg Neutrophils % 81.4 H Seg Neuts % (Manual) Lymphocytes % (Manual) Seg Neutrophils # 9.2 H Seg Neutrophils # Man Lymphocytes # (Manual) PT INR ABG pH ABG pO2 ABG HCO3 ABG O2 Saturation ABG Base Excess ABG Hemoglobin Oxyhemoglobin Sodium Potassium Chloride Carbon Dioxide BUN Creatinine Glucose POC Glucose 113 H Calcium 8.2 L Phosphorus AST ALT Ammonia Albumin 02/23/22 02/23/22 02/24/22 11:22 16:10 00:02 WBC RBC Hgb Hct MCV MCH RDW Lymph % (Auto) [place] % (Auto) Lymph # (Auto) [place] # (Auto) Seg Neutrophils % Seg Neuts % (Manual) Lymphocytes % (Manual) Seg Neutrophils # Seg Neutrophils # Man Lymphocytes # (Manual) PT INR ABG pH ABG pO2 ABG HCO3 ABG O2 Saturation ABG Base Excess ABG Hemoglobin Oxyhemoglobin Sodium Potassium Chloride Carbon Dioxide BUN Creatinine Glucose POC Glucose 108 H 115 H 109 H Calcium Phosphorus AST ALT Ammonia Albumin 02/24/22 02/24/22 02/24/22 11:05 11:05 13:20 WBC RBC 3.55 L Hgb Hct MCV 100 H MCH 34 H RDW 15.6 H Lymph % (Auto) [place] % (Auto) Lymph # (Auto) [place] # (Auto) Seg Neutrophils % Seg Neuts % (Manual) Lymphocytes % (Manual) Seg Neutrophils # Seg Neutrophils # Man Lymphocytes # (Manual) PT INR ABG pH ABG pO2 ABG HCO3 ABG O2 Saturation ABG Base Excess ABG Hemoglobin Oxyhemoglobin Sodium 146 H Potassium 3.2 L D Chloride 108.4 H Carbon Dioxide BUN Creatinine 0.5 L Glucose POC Glucose 111 H Calcium 7.9 L Phosphorus 2.20 L AST ALT Ammonia Albumin 02/24/22 02/24/22 02/24/22 16:30 17:03 20:25 WBC RBC Hgb Hct MCV MCH RDW Lymph % (Auto) [place] % (Auto) Lymph # (Auto) [place] # (Auto) Seg Neutrophils % Seg Neuts % (Manual) Lymphocytes % (Manual) Seg Neutrophils # Seg Neutrophils # Man Lymphocytes # (Manual) PT INR ABG pH 7.319 L ABG pO2 65.3 L ABG HCO3 31.3 H ABG O2 Saturation 92.2 L ABG Base Excess 3.8 H ABG Hemoglobin 12.0 L Oxyhemoglobin 90.3 L Sodium Potassium Chloride 107.9 H Carbon Dioxide BUN 8 L Creatinine 0.4 L Glucose POC Glucose 108 H Calcium 7.6 L Phosphorus 4.60 H D AST ALT Ammonia Albumin 02/25/22 02/25/22 02/25/22 04:12 04:12 05:05 WBC RBC 3.07 L Hgb 10.2 L Hct 31.5 L MCV 103 H MCH 33 H RDW 15.6 H Lymph % (Auto) [place] % (Auto) Lymph # (Auto) [place] # (Auto) Seg Neutrophils % Seg Neuts % (Manual) Lymphocytes % (Manual) Seg Neutrophils # Seg Neutrophils # Man Lymphocytes # (Manual) PT INR ABG pH ABG pO2 ABG HCO3 32.5 H ABG O2 Saturation ABG Base Excess 5.6 H ABG Hemoglobin 10.8 L Oxyhemoglobin 94.8 L Sodium Potassium 3.5 L Chloride 107.7 H Carbon Dioxide BUN Creatinine 0.5 L Glucose POC Glucose Calcium 7.0 L Phosphorus AST ALT Ammonia Albumin 02/25/22 02/25/22 02/26/22 12:05 18:33 00:07 WBC RBC Hgb Hct MCV MCH RDW Lymph % (Auto) [place] % (Auto) Lymph # (Auto) [place] # (Auto) Seg Neutrophils % Seg Neuts % (Manual) Lymphocytes % (Manual) Seg Neutrophils # Seg Neutrophils # Man Lymphocytes # (Manual) PT INR ABG pH ABG pO2 ABG HCO3 ABG O2 Saturation ABG Base Excess ABG Hemoglobin Oxyhemoglobin Sodium Potassium Chloride Carbon Dioxide BUN Creatinine Glucose POC Glucose 127 H 125 H 114 H Calcium Phosphorus AST ALT Ammonia Albumin 02/26/22 02/26/22 02/26/22 03:30 04:42 11:34 WBC RBC Hgb Hct MCV MCH RDW Lymph % (Auto) [place] % (Auto) Lymph # (Auto) [place] # (Auto) Seg Neutrophils % Seg Neuts % (Manual) Lymphocytes % (Manual) Seg Neutrophils # Seg Neutrophils # Man Lymphocytes # (Manual) PT INR ABG pH ABG pO2 143.2 H ABG HCO3 33.2 H ABG O2 Saturation ABG Base Excess 6.5 H ABG Hemoglobin 9.4 L Oxyhemoglobin Sodium Potassium Chloride Carbon Dioxide 32 H BUN Creatinine 0.7 L Glucose POC Glucose 114 H Calcium 8.0 L Phosphorus AST ALT Ammonia Albumin 02/26/22 02/26/22 02/27/22 18:17 23:37 04:19 WBC 13.7 H RBC 2.78 L Hgb 9.3 L Hct 28.5 L MCV 103 H MCH 33 H RDW 16.3 H Lymph % (Auto) [place] % (Auto) Lymph # (Auto) [place] # (Auto) Seg Neutrophils % Seg Neuts % (Manual) Lymphocytes % (Manual) Seg Neutrophils # Seg Neutrophils # Man Lymphocytes # (Manual) PT INR ABG pH ABG pO2 ABG HCO3 ABG O2 Saturation ABG Base Excess ABG Hemoglobin Oxyhemoglobin Sodium Potassium Chloride Carbon Dioxide BUN Creatinine Glucose POC Glucose 111 H 117 H Calcium Phosphorus AST ALT Ammonia Albumin 02/27/22 02/27/22 02/27/22 04:19 04:35 05:27 WBC RBC Hgb Hct MCV MCH RDW Lymph % (Auto) [place] % (Auto) Lymph # (Auto) [place] # (Auto) Seg Neutrophils % Seg Neuts % (Manual) Lymphocytes % (Manual) Seg Neutrophils # Seg Neutrophils # Man Lymphocytes # (Manual) PT INR ABG pH ABG pO2 96.3 H ABG HCO3 34.9 H ABG O2 Saturation ABG Base Excess 8.1 H ABG Hemoglobin Oxyhemoglobin Sodium Potassium Chloride Carbon Dioxide 31 H BUN Creatinine 0.6 L Glucose 107 H POC Glucose 133 H Calcium 7.8 L Phosphorus AST ALT Ammonia Albumin 02/27/22 02/27/22 02/28/22 11:15 23:35 03:38 WBC 13.3 H RBC 3.05 L Hgb 10.2 L Hct 30.7 L MCV 101 H MCH 33 H RDW 16.1 H Lymph % (Auto) [place] % (Auto) Lymph # (Auto) [place] # (Auto) Seg Neutrophils % Seg Neuts % (Manual) Lymphocytes % (Manual) Seg Neutrophils # Seg Neutrophils # Man Lymphocytes # (Manual) PT INR ABG pH ABG pO2 ABG HCO3 ABG O2 Saturation ABG Base Excess ABG Hemoglobin Oxyhemoglobin Sodium Potassium Chloride Carbon Dioxide BUN Creatinine Glucose POC Glucose 129 H 122 H Calcium Phosphorus AST ALT Ammonia Albumin 02/28/22 02/28/22 02/28/22 04:50 05:30 09:30 WBC RBC Hgb Hct MCV MCH RDW Lymph % (Auto) [place] % (Auto) Lymph # (Auto) [place] # (Auto) Seg Neutrophils % Seg Neuts % (Manual) Lymphocytes % (Manual) Seg Neutrophils # Seg Neutrophils # Man Lymphocytes # (Manual) PT INR ABG pH 7.451 H 7.488 H ABG pO2 77.0 L ABG HCO3 37.1 H 34.6 H ABG O2 Saturation ABG Base Excess 11.5 H 10.1 H ABG Hemoglobin 10.1 L 10.0 L Oxyhemoglobin Sodium Potassium Chloride Carbon Dioxide BUN Creatinine Glucose POC Glucose 121 H Calcium Phosphorus AST ALT Ammonia Albumin 02/28/22 02/28/22 03/01/22 11:36 23:07 04:27 WBC 12.5 H RBC 2.85 L Hgb 9.5 L Hct 28.6 L MCV 101 H MCH 33 H RDW 15.7 H Lymph % (Auto) [place] % (Auto) Lymph # (Auto) [place] # (Auto) Seg Neutrophils % Seg Neuts % (Manual) Lymphocytes % (Manual) Seg Neutrophils # Seg Neutrophils # Man Lymphocytes # (Manual) PT INR ABG pH ABG pO2 ABG HCO3 ABG O2 Saturation ABG Base Excess ABG Hemoglobin Oxyhemoglobin Sodium Potassium Chloride Carbon Dioxide BUN Creatinine Glucose POC Glucose 112 H 107 H Calcium Phosphorus AST ALT Ammonia Albumin 03/01/22 03/01/22 03/01/22 04:27 05:05 11:29 WBC RBC Hgb Hct MCV MCH RDW Lymph % (Auto) [place] % (Auto) Lymph # (Auto) [place] # (Auto) Seg Neutrophils % Seg Neuts % (Manual) Lymphocytes % (Manual) Seg Neutrophils # Seg Neutrophils # Man Lymphocytes # (Manual) PT INR ABG pH ABG pO2 ABG HCO3 ABG O2 Saturation ABG Base Excess ABG Hemoglobin Oxyhemoglobin Sodium 147 H D Potassium Chloride Carbon Dioxide 34 H BUN Creatinine 0.6 L Glucose 128 H POC Glucose 119 H 121 H Calcium 7.9 L Phosphorus AST ALT Ammonia Albumin 03/01/22 03/01/22 03/02/22 16:15 23:57 05:18 WBC RBC Hgb Hct MCV MCH RDW Lymph % (Auto) [place] % (Auto) Lymph # (Auto) [place] # (Auto) Seg Neutrophils % Seg Neuts % (Manual) Lymphocytes % (Manual) Seg Neutrophils # Seg Neutrophils # Man Lymphocytes # (Manual) PT INR ABG pH ABG pO2 110.5 H ABG HCO3 33.0 H ABG O2 Saturation ABG Base Excess 7.4 H ABG Hemoglobin 8.6 L Oxyhemoglobin Sodium Potassium Chloride Carbon Dioxide BUN Creatinine Glucose POC Glucose 134 H 140 H Calcium Phosphorus AST ALT Ammonia Albumin 03/02/22 03/02/22 03/02/22 05:53 09:04 09:04 WBC 15.0 H RBC 3.00 L Hgb 9.7 L Hct 30.7 L MCV 102 H MCH RDW 16.6 H Lymph % (Auto) [place] % (Auto) Lymph # (Auto) [place] # (Auto) Seg Neutrophils % Seg Neuts % (Manual) Lymphocytes % (Manual) Seg Neutrophils # Seg Neutrophils # Man Lymphocytes # (Manual) PT INR ABG pH ABG pO2 ABG HCO3 ABG O2 Saturation ABG Base Excess ABG Hemoglobin Oxyhemoglobin Sodium Potassium Chloride Carbon Dioxide 31 H BUN Creatinine 0.6 L Glucose 157 H POC Glucose 158 H Calcium 7.9 L Phosphorus AST ALT Ammonia Albumin 03/02/22 03/02/22 03/02/22 11:36 16:25 23:17 WBC RBC Hgb Hct MCV MCH RDW Lymph % (Auto) [place] % (Auto) Lymph # (Auto) [place] # (Auto) Seg Neutrophils % Seg Neuts % (Manual) Lymphocytes % (Manual) Seg Neutrophils # Seg Neutrophils # Man Lymphocytes # (Manual) PT INR ABG pH ABG pO2 ABG HCO3 ABG O2 Saturation ABG Base Excess ABG Hemoglobin Oxyhemoglobin Sodium Potassium Chloride Carbon Dioxide BUN Creatinine Glucose POC Glucose 160 H 132 H 157 H Calcium Phosphorus AST ALT Ammonia Albumin 03/03/22 03/03/22 03/03/22 03:54 03:54 05:27 WBC 19.5 H RBC 2.79 L Hgb 9.0 L Hct 28.6 L MCV 102 H MCH RDW 16.2 H Lymph % (Auto) [place] % (Auto) Lymph # (Auto) [place] # (Auto) Seg Neutrophils % Seg Neuts % (Manual) 95.0 H Lymphocytes % (Manual) 3.0 L Seg Neutrophils # Seg Neutrophils # Man 18.5 H Lymphocytes # (Manual) 0.6 L PT INR ABG pH ABG pO2 ABG HCO3 ABG O2 Saturation ABG Base Excess ABG Hemoglobin Oxyhemoglobin Sodium Potassium Chloride Carbon Dioxide BUN Creatinine 0.6 L Glucose 130 H POC Glucose 149 H Calcium 8.1 L Phosphorus AST ALT Ammonia Albumin 03/03/22 03/03/22 03/04/22 11:13 17:30 00:02 WBC RBC Hgb Hct MCV MCH RDW Lymph % (Auto) [place] % (Auto) Lymph # (Auto) [place] # (Auto) Seg Neutrophils % Seg Neuts % (Manual) Lymphocytes % (Manual) Seg Neutrophils # Seg Neutrophils # Man Lymphocytes # (Manual) PT INR ABG pH ABG pO2 ABG HCO3 ABG O2 Saturation ABG Base Excess ABG Hemoglobin Oxyhemoglobin Sodium Potassium Chloride Carbon Dioxide BUN Creatinine Glucose POC Glucose 139 H 138 H 157 H Calcium Phosphorus AST ALT Ammonia Albumin 03/04/22 03/04/22 03/04/22 05:32 05:32 05:48 WBC 16.1 H RBC 2.81 L Hgb 9.3 L Hct 28.8 L MCV 102 H MCH 33 H RDW 16.7 H Lymph % (Auto) [place] % (Auto) Lymph # (Auto) [place] # (Auto) Seg Neutrophils % Seg Neuts % (Manual) Lymphocytes % (Manual) Seg Neutrophils # Seg Neutrophils # Man Lymphocytes # (Manual) PT INR ABG pH ABG pO2 ABG HCO3 ABG O2 Saturation ABG Base Excess ABG Hemoglobin Oxyhemoglobin Sodium Potassium Chloride Carbon Dioxide BUN Creatinine 0.7 L Glucose 135 H POC Glucose 145 H Calcium 8.3 L Phosphorus AST ALT Ammonia Albumin 03/04/22 03/04/22 03/05/22 11:34 16:29 00:28 WBC RBC Hgb Hct MCV MCH RDW Lymph % (Auto) [place] % (Auto) Lymph # (Auto) [place] # (Auto) Seg Neutrophils % Seg Neuts % (Manual) Lymphocytes % (Manual) Seg Neutrophils # Seg Neutrophils # Man Lymphocytes # (Manual) PT INR ABG pH ABG pO2 ABG HCO3 ABG O2 Saturation ABG Base Excess ABG Hemoglobin Oxyhemoglobin Sodium Potassium Chloride Carbon Dioxide BUN Creatinine Glucose POC Glucose 148 H 140 H 116 H Calcium Phosphorus AST ALT Ammonia Albumin 03/05/22 03/05/22 03/05/22 06:29 11:30 17:38 WBC RBC Hgb Hct MCV MCH RDW Lymph % (Auto) [place] % (Auto) Lymph # (Auto) [place] # (Auto) Seg Neutrophils % Seg Neuts % (Manual) Lymphocytes % (Manual) Seg Neutrophils # Seg Neutrophils # Man Lymphocytes # (Manual) PT INR ABG pH ABG pO2 ABG HCO3 ABG O2 Saturation ABG Base Excess ABG Hemoglobin Oxyhemoglobin Sodium Potassium Chloride Carbon Dioxide BUN Creatinine Glucose POC Glucose 114 H 114 H 117 H Calcium Phosphorus AST ALT Ammonia Albumin 03/06/22 03/06/22 03/06/22 04:17 04:17 06:06 WBC 13.4 H RBC 2.85 L Hgb 9.4 L Hct 29.0 L MCV 102 H MCH 33 H RDW 16.4 H Lymph % (Auto) [place] % (Auto) Lymph # (Auto) [place] # (Auto) Seg Neutrophils % Seg Neuts % (Manual) Lymphocytes % (Manual) Seg Neutrophils # Seg Neutrophils # Man Lymphocytes # (Manual) PT INR ABG pH ABG pO2 ABG HCO3 ABG O2 Saturation ABG Base Excess ABG Hemoglobin Oxyhemoglobin Sodium Potassium 3.5 L Chloride Carbon Dioxide 31 H BUN Creatinine 0.6 L Glucose 101 H POC Glucose 106 H Calcium 7.7 L Phosphorus 2.00 L AST ALT Ammonia Albumin
--- NOTE | 2022-03-06 10:45 | Progress Note ---
<KEATON GOLD - Last Filed: 03/06/22 18:27> Assessment and Plan Assessment and plan: This is a 51-year-old male with HTN, seizure disorder, Down syndrome, HLD, partial blindness admitted with aspiration pneumonia, probable bronchogenic carcinoma, acute hypoxic respiratory failure and acute encephalopathy Hospital course to date: 02/19/2022. Consult pulmonary for further evaluation and possible bronchoscopy. I suspect patient has component of aspiration pneumonia as well. We will obtain a speech therapy evaluation for swallowing and start empiric antibiotics. Continue O2 supplementation to maintain sats greater than 92%. 02/20/2022. Pulmonary feels that the abnormality seen on CT scan is highly unlikely for a mass given negative chest x-ray 1 month ago and no risk factors. Etiology is likely secondary to aspiration from possibly a foreign body most likely food with atelectasis of the right lower lobe. Bronchoscopy is needed in the case to evaluate to see if lung mass is there vs foreign body, but at this time not able to do because no identifiable person that is able to give consent. Continue aspiration precautions and continue speech therapy evaluation for swallowing. Keep n.p.o. for now 02/21/2022. Patient remains NPO. Consider DHT placement. Follow-up with speech therapy evaluation. Pulmonology to consider bronchoscopy if able to obtain consent. Continue IV antibiotics for aspiration pneumonia 02/22/2022. Patient remains NPO. Consider DHT placement. Follow-up with speech therapy evaluation. Pulmonology to consider bronchoscopy if able to obtain consent. Continue IV antibiotics for aspiration pneumonia 02/23/2022. DHT placed yesterday. TF initiated for nutritional support. Patient currently with strict NPO. Aspiration precautions. Pulmonology to consider bronchoscopy if able to obtain consent. Continue IV antibiotics for aspiration pneumonia 02/24: Patient was transferred to the ICU for further monitoring. This morning patient remained on high flow nasal cannula on 40 L/100% and despite repeated nasotracheal suctioning patient SPO2 remained in the 80s. Patient was placed on nonrebreather and SPO2 increased to upper 80s. Patient was subsequently intubated by anesthesia. Started on sedation. 02/25: Patient remains sedated on fentanyl, potassium and magnesium repleted. IV fluids and amlodipine discontinued. Possible bronchoscopy tomorrow. 02/26: Patient had a bronchoscopy today which showed mucus and no endobronchial lesions or masses. FiO2 was increased to 100 during and postprocedure weaning as tolerated. Repeat CXR is much improved after bronc. Given 1 L LR bolus due to hypotension. No acute events reported overnight. 02/27: Decreased PEEP, will repeat CT of chest. no acute changes overnight. 02/28: Patient was extubated today however had to be be intubated shortly after. Patient ETT looked mispositioned on x-ray and Dr. Alonzo did do a bedside bronc. Patient was briefly hypotensive and on Levophed postintubation however Levophed was quickly titrated off and patient did not require central line. No acute events reported overnight. Will obtain CT neck d/t difficulty intubating. Ethic committee consulted. 03/04: Overnight patient was hypotensive and started on IVF. Patient started on steroids as no air leak noted and hypotension and given 2 L LR 03/05: Overnight patient received bolus per RN report, no orders seen. Continue supportive care 03/03: SB on the monitor, HR as low as 37, VSS. Will continue to monitor for now. Awaiting on desicion from [facility] for possible trach and PEG. Continue daily air leak per [facility] 03/04: MAIDA overnight. Remains stable on the vent. Awaiting on desicion from [facility] for possible trach and PEG. Continue current supportive measures 03/05: MAIDA overnight. Awaiting on desicion from [facility] for possible trach and PEG. Midodrine held yesterday, HR improved. Continue current supportive measures. Daily PSV trial as tolerated per [facility] 03/06: Remains stable on the vent. Continue current supportive measures, daily PSV trial per [facility]. Awaiting on desicion for possible trach and PEG. Neuro: Acute encephalopathy, h/o seizure disorder, Down syndrome, partial blindness -Patient currently sedated with propofol -RASS goal 0 to -1 -Reorientation as needed -Maintain sleep-wake cycle -aspiration/seizure precautions -As needed analgesia -CT head showed no acute abnormality -Continue Keppra Cardiac: Hypotension, h/o HTN, HLD -Cardiology consulted, appreciate recommendations -Blood pressure monitoring per protocol -d/c amlodipine -Midodrine TID- held due to bradycardia. BP stable Respiratory: Acute hypoxic respiratory failure, r/o bronchogenic carcinoma -[facility] consulted, appreciate recommendations -Intubated on 02/24 with a 8.0 at 23 at the lips but extubated 02/28 -reintubated 02/28 with 8.0 OETT -Vent settings: AC rate 14, TV 360, PEEP 6, FO2 30% -See RT notes for titration -VAP bundle -SPO2 monitoring -02/18 CTA chest showed no evidence of pulmonary embolism, suspected bronchogenic carcinoma with associated obstruction of the right lower lobe proximal bronchus segment, 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 adenopathy and suspected to left lower lobe metastatic nodule -02/26 Bronch->mucous, no lesion noted -02/27 CT chest showed right mainstem bronchus patent with small amount of interval bronchial fluid which may be mucus (this may account for the appearance of the prior CTA chest fluid-filled airway rather than entering bronchial lesion), previously seen complete left lower lobe since related to bronchial occlusion has significantly improved, there is persistent compressive atelectasis in the right lower lung secondary to the pleural effusion, bilateral pleural effusions, right lung pneumonia -CT neck showed no acute changes - IV Steroids stopped GI: Moderate protein calorie malnutrition -PPI -NTR consulted for tube feedings -BR: Senokot S : Hypernatremia (resolved) -FWF 200 ml q4 hr -Monitor intake and output -Renally dose medications -Avoid nephrotoxic medications -Trend BMP ID: Aspiration PNA -S/p Rocephin for 5 days (02/19-02/24) -Monitor WBC and temperature curve Endo: NAD -Avoid hypoglycemia -Accu-Cheks every 6 -Avoid hypoglycemia Heme: NAD -Trend CBC -Transfuse hemoglobin less than 7 -SCDs to BLE while in bed The high probability of a clinically significant, sudden or life threatening deterioration of the [resp] system(s) required my full and direct attention, intervention and personal management. The aggregate critical care time was [60] minutes. This time is in addition to time spent performing reported procedures but includes the following: [x] Data Review and interpretation [x] Patient assessment and monitoring of vital signs [x] Documentation [x] Medication orders and management Disposition Plan: ICU Total Time Spent with Patient (Minutes): 60 History Interval history: Patient seen and examined at the bedside. Remains stable on low vent setting, not on any sedation. Open eyes spontaneously and move extremities but does not follow any commands. SB/SR on the monitor this am, VSS. MAIDA overnight Hospitalist Physical - Physical exam Narrative exam: General appearance: Present: no acute distress, well-nourished, obese - EENT Eyes: Present: PERRL - Neck Neck: Present: normal ROM - Respiratory Respiratory effort: normal Respiratory: bilateral: rhonchi - Cardiovascular Rhythm: regular Heart Sounds: Present: S1 & S2 - Extremities Extremities: no ischemia, pulses intact, pulses symmetrical Extremity abnormal: edema - Peripheral Assessment Generalized Edema Type: Non-pitting Edema Degree: 1+ Capillary Refill: < 3 seconds Skin Temperature: Warm Peripheral Pulses: within normal limits - Abdominal General gastrointestinal: soft, non-distended, normal bowel sounds - Integumentary Integumentary: Present: warm, dry - Psychiatric Psychiatric: other (Intubated, unresponsive. Not on any sedations) - Neurologic Neurologic: moves all extremities, other (Intubated, unresponsive. Not on any sedations) - Allied Health Allied health notes reviewed: nursing, case management - Constitutional Vitals: Temp Pulse Resp BP Pulse Ox 99.1 F 67 14 96/44 98 03/06/22 04:00 03/06/22 07:31 03/06/22 07:27 03/06/22 07:31 03/06/22 07:31 HEART Score - HEART Score Troponin: Troponin T < 0.010 ng/mL (0.00-0.029) 02/18/22 21:02 Results - Labs CBC & Chem 7: 03/06/22 04:17 03/06/22 04:17 Labs: Laboratory Last Values WBC 13.4 K/mm3 (4.5-11.0) H 03/06/22 04:17 RBC 2.85 M/mm3 (3.65-5.03) L 03/06/22 04:17 Hgb 9.4 gm/dl (11.8-15.2) L 03/06/22 04:17 Hct 29.0 % (35.5-45.6) L 03/06/22 04:17 MCV 102 fl (84-94) H 03/06/22 04:17 MCH 33 pg (28-32) H 03/06/22 04:17 MCHC 32 % (32-34) 03/06/22 04:17 RDW 16.4 % (13.2-15.2) H 03/06/22 04:17 Plt Count 289 K/mm3 (140-440) 03/06/22 04:17 Lymph % (Auto) 5.5 % (13.4-35.0) L 02/20/22 04:59 [place] % (Auto) 12.1 % (0.0-7.3) H 02/20/22 04:59 Eos % (Auto) 0.2 % (0.0-4.3) 02/20/22 04:59 Baso % (Auto) 0.8 % (0.0-1.8) 02/20/22 04:59 Lymph # (Auto) 0.6 K/mm3 (1.2-5.4) L 02/20/22 04:59 [place] # (Auto) 1.4 K/mm3 (0.0-0.8) H 02/20/22 04:59 Eos # (Auto) 0.0 K/mm3 (0.0-0.4) 02/20/22 04:59 Baso # (Auto) 0.1 K/mm3 (0.0-0.1) 02/20/22 04:59 Add Manual Diff Complete 03/03/22 03:54 Total Counted 100 03/03/22 03:54 Seg Neutrophils % 81.4 % (40.0-70.0) H 02/20/22 04:59 Seg Neuts % (Manual) 95.0 % (40.0-70.0) H 03/03/22 03:54 Band Neutrophils % 0 % 03/03/22 03:54 Lymphocytes % (Manual) 3.0 % (13.4-35.0) L 03/03/22 03:54 Reactive Lymphs % (Man) 0 % 03/03/22 03:54 Monocytes % (Manual) 2.0 % (0.0-7.3) 03/03/22 03:54 Eosinophils % (Manual) 0 % (0.0-4.3) 03/03/22 03:54 Basophils % (Manual) 0 % (0.0-1.8) 03/03/22 03:54 Metamyelocytes % 0 % 03/03/22 03:54 Myelocytes % 0 % 03/03/22 03:54 Promyelocytes % 0 % 03/03/22 03:54 Blast Cells % 0 % 03/03/22 03:54 Nucleated RBC % Not Reportable 03/03/22 03:54 Seg Neutrophils # 9.2 K/mm3 (1.8-7.7) H 02/20/22 04:59 Seg Neutrophils # Man 18.5 K/mm3 (1.8-7.7) H 03/03/22 03:54 Band Neutrophils # 0.0 K/mm3 03/03/22 03:54 Lymphocytes # (Manual) 0.6 K/mm3 (1.2-5.4) L 03/03/22 03:54 Abs React Lymphs (Man) 0.0 K/mm3 03/03/22 03:54 Monocytes # (Manual) 0.4 K/mm3 (0.0-0.8) 03/03/22 03:54 Eosinophils # (Manual) 0.0 K/mm3 (0.0-0.4) 03/03/22 03:54 Basophils # (Manual) 0.0 K/mm3 (0.0-0.1) 03/03/22 03:54 Metamyelocytes # 0.0 K/mm3 03/03/22 03:54 Myelocytes # 0.0 K/mm3 03/03/22 03:54 Promyelocytes # 0.0 K/mm3 03/03/22 03:54 Blast Cells # 0.0 K/mm3 03/03/22 03:54 WBC Morphology Not Reportable 03/03/22 03:54 Hypersegmented Neuts Not Reportable 03/03/22 03:54 Hyposegmented Neuts Not Reportable 03/03/22 03:54 Hypogranular Neuts Not Reportable 03/03/22 03:54 Smudge Cells Not Reportable 03/03/22 03:54 Toxic Granulation Not Reportable 03/03/22 03:54 Toxic Vacuolation Not Reportable 03/03/22 03:54 Dohle Bodies Not Reportable 03/03/22 03:54 Pelger-Huet Anomaly Not Reportable 03/03/22 03:54 Lakshmi Rods Not Reportable 03/03/22 03:54 Platelet Estimate Consistent w auto 03/03/22 03:54 Clumped Platelets Not Reportable 03/03/22 03:54 Plt Clumps, EDTA Not Reportable 03/03/22 03:54 Large Platelets Not Reportable 03/03/22 03:54 Giant Platelets Not Reportable 03/03/22 03:54 Platelet Satelliting Not Reportable 03/03/22 03:54 Plt Morphology Comment Not Reportable 03/03/22 03:54 RBC Morphology Not Reportable 03/03/22 03:54 Dimorphic RBCs Not Reportable 03/03/22 03:54 Polychromasia Not Reportable 03/03/22 03:54 Hypochromasia Not Reportable 03/03/22 03:54 Poikilocytosis Not Reportable 03/03/22 03:54 Anisocytosis 1+ 03/03/22 03:54 Microcytosis Not Reportable 03/03/22 03:54 Macrocytosis Not Reportable 03/03/22 03:54 Spherocytes Not Reportable 03/03/22 03:54 Pappenheimer Bodies Not Reportable 03/03/22 03:54 Sickle Cells Not Reportable 03/03/22 03:54 Target Cells Not Reportable 03/03/22 03:54 Tear Drop Cells Not Reportable 03/03/22 03:54 Ovalocytes Not Reportable 03/03/22 03:54 Helmet Cells Not Reportable 03/03/22 03:54 [place] Bodies Not Reportable 03/03/22 03:54 [place] Rings Not Reportable 03/03/22 03:54 [place] Cells Not Reportable 03/03/22 03:54 Bite Cells Not Reportable 03/03/22 03:54 Crenated Cell Not Reportable 03/03/22 03:54 Elliptocytes Not Reportable 03/03/22 03:54 Acanthocytes (Spur) Not Reportable 03/03/22 03:54 Rouleaux Not Reportable 03/03/22 03:54 Hemoglobin C Crystals Not Reportable 03/03/22 03:54 Schistocytes Not Reportable 03/03/22 03:54 Malaria parasites Not Reportable 03/03/22 03:54 Cash Bodies Not Reportable 03/03/22 03:54 Hem Pathologist Commnt No 03/03/22 03:54 PT 16.9 Sec. (12.2-14.9) H 02/18/22 21:02 INR 1.20 (0.87-1.13) H 02/18/22 21:02 ABG pH 7.411 pH Units (7.350-7.450) 03/02/22 05:18 ABG pCO2 53.2 mm Hg 03/02/22 05:18 ABG pO2 110.5 mm Hg (80.0-90.0) H 03/02/22 05:18 ABG HCO3 33.0 mmol/L (20.0-26.0) H 03/02/22 05:18 ABG O2 Saturation 97.9 % (95.0-99.0) 03/02/22 05:18 ABG O2 Content 11.8 (0.0-44) 03/02/22 05:18 ABG Base Excess 7.4 mmol/L (-2.0-3.0) H 03/02/22 05:18 ABG Hemoglobin 8.6 gm/dl (14.0-18.0) L 03/02/22 05:18 ABG Carboxyhemoglobin 1.4 % (0.0-5.0) 03/02/22 05:18 ABG Methemoglobin 0.6 % (0.0-1.5) 03/02/22 05:18 Oxyhemoglobin 96.0 % (95.0-99.0) 03/02/22 05:18 FiO2 40 % 03/02/22 05:18 Sodium 145 mmol/L (137-145) 03/06/22 04:17 Potassium 3.5 mmol/L (3.6-5.0) L 03/06/22 04:17 Chloride 106.7 mmol/L (98-107) 03/06/22 04:17 Carbon Dioxide 31 mmol/L (22-30) H 03/06/22 04:17 Anion Gap 11 mmol/L 03/06/22 04:17 BUN 20 mg/dL (9-20) 03/06/22 04:17 Creatinine 0.6 mg/dL (0.8-1.3) L 03/06/22 04:17 Estimated GFR > 60 ml/min 03/06/22 04:17 BUN/Creatinine Ratio 33 % 03/06/22 04:17 Glucose 101 mg/dL (75-100) H 03/06/22 04:17 POC Glucose 106 mg/dL (70-105) H 03/06/22 06:06 Lactic Acid 1.20 mmol/L (0.7-2.0) 02/18/22 21:02 Calcium 7.7 mg/dL (8.4-10.2) L 03/06/22 04:17 Phosphorus 2.00 mg/dL (2.5-4.5) L 03/06/22 04:17 Magnesium 1.90 mg/dL (1.7-2.3) 03/06/22 04:17 Total Bilirubin 0.50 mg/dL (0.1-1.2) 02/18/22 21:02 AST 48 units/L (5-40) H 02/18/22 21:02 ALT 64 units/L (7-56) H 02/18/22 21:02 Alkaline Phosphatase 88 units/L (35-129) 02/18/22 21:02 Ammonia 14.0 umol/L (25-60) L 02/18/22 23:22 Troponin T < 0.010 ng/mL (0.00-0.029) 02/18/22 21:02 Total Protein 7.2 g/dL (6.3-8.2) 02/18/22 21:02 Albumin 2.7 g/dL (3.9-5) L 02/18/22 21:02 Albumin/Globulin Ratio 0.6 % 02/18/22 21:02 Urine Color Dark yellow (Yellow) 02/18/22 Unknown Urine Turbidity Clear (Clear) 02/18/22 Unknown Urine pH 7.0 (5.0-7.0) 02/18/22 Unknown Ur Specific [place] 1.015 (1.003-1.030) 02/18/22 Unknown Urine Protein <15 mg/dl mg/dL (Negative) 02/18/22 Unknown Urine Glucose (UA) Negative mg/dL (Negative) 02/18/22 Unknown Urine Ketones Negative mg/dL (Negative) 02/18/22 Unknown Urine Blood Trace (Negative) 02/18/22 Unknown Urine Nitrite Negative (Negative) 02/18/22 Unknown Urine Bilirubin Negative (Negative) 02/18/22 Unknown Urine Urobilinogen < 2.0 mg/dL (<2.0) 02/18/22 Unknown Ur Leukocyte Esterase Negative (Negative) 02/18/22 Unknown Urine WBC (Auto) 2.0 /HPF (0.0-6.0) 02/18/22 Unknown Urine RBC (Auto) 9.0 /HPF (0.0-6.0) 02/18/22 Unknown Urine Mucus Few /HPF 02/18/22 Unknown Urine Opiates Screen Negative 02/18/22 Unknown Urine Methadone Screen Negative 02/18/22 Unknown Ur Barbiturates Screen Negative 02/18/22 Unknown Ur Phencyclidine Scrn Negative 02/18/22 Unknown Ur Amphetamines Screen Negative 02/18/22 Unknown U Benzodiazepines Scrn Negative 02/18/22 Unknown Urine Cocaine Screen Negative 02/18/22 Unknown U Marijuana (THC) Screen Negative 02/18/22 Unknown Drugs of Abuse Note Disclamer 02/18/22 Unknown Plasma/Serum Alcohol < 0.01 % (0-0.07) 02/18/22 21:02 Horowitz/IV: Voiding Method Indwelling Catheter Active Medications - Current Medications Current Medications: Generic Name Dose Route Start Last Admin Trade Name Freq PRN Reason Stop Dose Admin Acetaminophen 650 mg 03/03/22 09:00 Acetaminophen 325 Mg/10.15 Ml Oral Liqd Unit Dose FEEDTUBE Q4H PRN Pain, Mild (1-3); TEMP > 100.4 Albuterol 2.5 mg 02/23/22 16:00 03/06/22 07:27 Albuterol 2.5 Mg/3 Ml Nebu IH 2.5 mg Q4HRT LAZARUS Administration Famotidine 20 mg 02/25/22 10:00 03/06/22 10:25 Famotidine 20 Mg Tab FEEDTUBE 20 mg BID LAZARUS Administration Heparin Sodium (Porcine) 5,000 unit 02/19/22 06:00 03/06/22 06:46 Heparin 5,000 Unit/1 Ml Vial SUB-Q 5,000 unit Q8HR LAZARUS Administration Hydrophilic Ointment 1 applic 02/24/22 15:05 Lip Therapy Vaseline TP Q2HR PRN Dry Lips Levetiracetam 500 mg 02/25/22 22:00 03/06/22 10:25 Levetiracetam 500 Mg/5 Ml Oral Liqd FEEDTUBE 500 mg BID LAZARUS Administration Levothyroxine Sodium 25 mcg 02/26/22 06:00 03/06/22 06:46 Levothyroxine 25 Mcg Tab FEEDTUBE 25 mcg QAM@0600 LZAARUS Administration Magnesium Hydroxide 30 ml 02/19/22 02:02 Magnesium Hydroxide (Mom) Oral Liqd Udc PO Q4H PRN Constipation Morphine Sulfate 2 mg 02/19/22 02:02 Morphine 2 Mg/1 Ml Inj IV Q4H PRN Pain, Moderate (4-6) Morphine Sulfate 4 mg 02/19/22 02:02 Morphine 4 Mg/1 Ml Inj IV Q4H PRN Pain , Severe (7-10) Multi-Ingred Cream/Lotion/Oil/Oint 1 applic 02/24/22 15:05 Mineral Oil/Petrolatum, White Ophth Oint 3.5 Gm OU Q4HR PRN Dry Eye(s) Ondansetron HCl 4 mg 02/19/22 02:02 Ondansetron 4 Mg/2 Ml Inj IV Q8H PRN Nausea And Vomiting Pravastatin Sodium 40 mg 02/25/22 22:00 03/05/22 21:00 Pravastatin 40 Mg Tab FEEDTUBE 40 mg QHS LAZARUS Administration Senna/Docusate Sodium 1 tab 02/24/22 22:00 03/06/22 10:25 Sennosides/Docusate Sodium 8.6/50 Mg Tab FEEDTUBE 1 tab BID LAZARUS Administration Sodium Chloride 10 ml 02/19/22 10:00 03/06/22 10:25 Sodium Chloride 0.9% 10 Ml Flush Syringe IV 10 ml BID LAZARUS Administration Sodium Chloride 10 ml 02/19/22 02:02 03/03/22 14:21 Sodium Chloride 0.9% 10 Ml Flush Syringe IV 10 ml PRN PRN Administration LINE FLUSH Sodium Phosphate 250 mg 03/06/22 10:00 03/06/22 10:25 K-Phos Neutral 250 Mg Tab FEEDTUBE 03/06/22 22:01 250 mg QID LAZARUS Administration Nutrition/Malnutrition Assess - Dietary Evaluation Nutrition/Malnutrition Findings: Nutrition Notes Start: 02/19/22 14:29 Freq: Status: Active Protocol: Document 02/28/22 15:34 TIERRA (Rec: 02/28/22 15:46 TIERRA [id number]) Nutrition Notes Initial or Follow up Brief Note Current Diet TF-Vital AF 1.2 Yord[place] @ 50 ml/hr (from L 02/27). Height 5 ft 3 in Weight 63.2 kg Bennett Body Weight (kg) 56.36 BMI 24.7 Weight change and time frame No body weight change reported in 6 days. Weight Status Appropriate Subjective/Other Information RD consult for routine F/U on TF tolerance/continuation. TF continues as prescribed, no further information available at the time, will assess at F /U. Pt was extubated this morning, but soon had to be intubated again, now Pt continues on Mechanical Ventilation, O2 saturation @ 94%, according to Physical Assessment History notes. Percent of energy/protein needs met: Prescribed TF-Vital AF 1.2 Yordy @ 50 ml/hr provides for energy/protein needs (1,450 Kcal/91 g) during LOS, 104% Kcal; 100% AA. #1 Nutrition Diagnosis Inadequate oral intake Comments: Pt was extubated this morning, but soon had to be intubated again, now Pt continues on Mechanical Ventilation, O2 saturation @ 94%, according to Physical Assessment History notes. Diagnosis Progress(for reassessment Continues documentation) Is patient on ventilator? Yes Is Patient Ambulatory and/or Out of Bed No REE-([facility]-confined to bed) 1591.836 Kcal/Kg value to use for calculation 22 Approximate Energy Requirements Using 1390 kcal/Kg Calculation Used for Recommendations Kcal/kg Additional Notes Protein: 1.2-2 g/Kg ABW; 76- 126 g/day. Fluids: 1 ml/Kcal, or as per MD. Nutrition Intervention Nutrition Support: Continue TF-Vital AF 1.2 Y[place] @ 50 ml/hr. Flush: 70 ml water Q 4 hr, or as per MD. Kcal 1,450 Protein (gm) 91 Carbohydrates (gm) 134 Fat (gm) 65 Fluid (mL) 980 Fiber (gm) 6 % RDI: 104% Kcal; 100% AA. Goal #1 Provide at least 75% of energy /protein needs through Enteral Feeding during LOS. Goal #2 Adjust the dietary intervention to better serve Pt's needs and clinical conditions during LOS. Follow-Up By: 03/07/22 Additional Comments Continue monitoring on ventilation status, TF tolerance, and BM. <JOAQUIN ROBIN - Last Filed: 03/06/22 20:12> Assessment and Plan Assessment and plan: I saw and evaluated the patient. I agree with the findings and the plan of care as documented in the Nurse Practitioner's~note, with the following corrections and additions. Hospitalist Physical - Constitutional Vitals: Temp Pulse Resp BP Pulse Ox 99.4 F 67 18 109/52 98 03/06/22 19:31 03/06/22 19:53 03/06/22 19:25 03/06/22 19:23 03/06/22 19:23 HEART Score - HEART Score Troponin: Troponin T < 0.010 ng/mL (0.00-0.029) 02/18/22 21:02 Results - Labs CBC & Chem 7: 03/06/22 04:17 03/06/22 04:17 Labs: Laboratory Last Values WBC 13.4 K/mm3 (4.5-11.0) H 03/06/22 04:17 RBC 2.85 M/mm3 (3.65-5.03) L 03/06/22 04:17 Hgb 9.4 gm/dl (11.8-15.2) L 03/06/22 04:17 Hct 29.0 % (35.5-45.6) L 03/06/22 04:17 MCV 102 fl (84-94) H 03/06/22 04:17 MCH 33 pg (28-32) H 03/06/22 04:17 MCHC 32 % (32-34) 03/06/22 04:17 RDW 16.4 % (13.2-15.2) H 03/06/22 04:17 Plt Count 289 K/mm3 (140-440) 03/06/22 04:17 Lymph % (Auto) 5.5 % (13.4-35.0) L 02/20/22 04:59 [place] % (Auto) 12.1 % (0.0-7.3) H 02/20/22 04:59 Eos % (Auto) 0.2 % (0.0-4.3) 02/20/22 04:59 Baso % (Auto) 0.8 % (0.0-1.8) 02/20/22 04:59 Lymph # (Auto) 0.6 K/mm3 (1.2-5.4) L 02/20/22 04:59 [place] # (Auto) 1.4 K/mm3 (0.0-0.8) H 02/20/22 04:59 Eos # (Auto) 0.0 K/mm3 (0.0-0.4) 02/20/22 04:59 Baso # (Auto) 0.1 K/mm3 (0.0-0.1) 02/20/22 04:59 Add Manual Diff Complete 03/03/22 03:54 Total Counted 100 03/03/22 03:54 Seg Neutrophils % 81.4 % (40.0-70.0) H 02/20/22 04:59 Seg Neuts % (Manual) 95.0 % (40.0-70.0) H 03/03/22 03:54 Band Neutrophils % 0 % 03/03/22 03:54 Lymphocytes % (Manual) 3.0 % (13.4-35.0) L 03/03/22 03:54 Reactive Lymphs % (Man) 0 % 03/03/22 03:54 Monocytes % (Manual) 2.0 % (0.0-7.3) 03/03/22 03:54 Eosinophils % (Manual) 0 % (0.0-4.3) 03/03/22 03:54 Basophils % (Manual) 0 % (0.0-1.8) 03/03/22 03:54 Metamyelocytes % 0 % 03/03/22 03:54 Myelocytes % 0 % 03/03/22 03:54 Promyelocytes % 0 % 03/03/22 03:54 Blast Cells % 0 % 03/03/22 03:54 Nucleated RBC % Not Reportable 03/03/22 03:54 Seg Neutrophils # 9.2 K/mm3 (1.8-7.7) H 02/20/22 04:59 Seg Neutrophils # Man 18.5 K/mm3 (1.8-7.7) H 03/03/22 03:54 Band Neutrophils # 0.0 K/mm3 03/03/22 03:54 Lymphocytes # (Manual) 0.6 K/mm3 (1.2-5.4) L 03/03/22 03:54 Abs React Lymphs (Man) 0.0 K/mm3 03/03/22 03:54 Monocytes # (Manual) 0.4 K/mm3 (0.0-0.8) 03/03/22 03:54 Eosinophils # (Manual) 0.0 K/mm3 (0.0-0.4) 03/03/22 03:54 Basophils # (Manual) 0.0 K/mm3 (0.0-0.1) 03/03/22 03:54 Metamyelocytes # 0.0 K/mm3 03/03/22 03:54 Myelocytes # 0.0 K/mm3 03/03/22 03:54 Promyelocytes # 0.0 K/mm3 03/03/22 03:54 Blast Cells # 0.0 K/mm3 03/03/22 03:54 WBC Morphology Not Reportable 03/03/22 03:54 Hypersegmented Neuts Not Reportable 03/03/22 03:54 Hyposegmented Neuts Not Reportable 03/03/22 03:54 Hypogranular Neuts Not Reportable 03/03/22 03:54 Smudge Cells Not Reportable 03/03/22 03:54 Toxic Granulation Not Reportable 03/03/22 03:54 Toxic Vacuolation Not Reportable 03/03/22 03:54 Dohle Bodies Not Reportable 03/03/22 03:54 Pelger-Huet Anomaly Not Reportable 03/03/22 03:54 Lakshmi Rods Not Reportable 03/03/22 03:54 Platelet Estimate Consistent w auto 03/03/22 03:54 Clumped Platelets Not Reportable 03/03/22 03:54 Plt Clumps, EDTA Not Reportable 03/03/22 03:54 Large Platelets Not Reportable 03/03/22 03:54 Giant Platelets Not Reportable 03/03/22 03:54 Platelet Satelliting Not Reportable 03/03/22 03:54 Plt Morphology Comment Not Reportable 03/03/22 03:54 RBC Morphology Not Reportable 03/03/22 03:54 Dimorphic RBCs Not Reportable 03/03/22 03:54 Polychromasia Not Reportable 03/03/22 03:54 Hypochromasia Not Reportable 03/03/22 03:54 Poikilocytosis Not Reportable 03/03/22 03:54 Anisocytosis 1+ 03/03/22 03:54 Microcytosis Not Reportable 03/03/22 03:54 Macrocytosis Not Reportable 03/03/22 03:54 Spherocytes Not Reportable 03/03/22 03:54 Pappenheimer Bodies Not Reportable 03/03/22 03:54 Sickle Cells Not Reportable 03/03/22 03:54 Target Cells Not Reportable 03/03/22 03:54 Tear Drop Cells Not Reportable 03/03/22 03:54 Ovalocytes Not Reportable 03/03/22 03:54 Helmet Cells Not Reportable 03/03/22 03:54 [place] Bodies Not Reportable 03/03/22 03:54 [place] Rings Not Reportable 03/03/22 03:54 [place] Cells Not Reportable 03/03/22 03:54 Bite Cells Not Reportable 03/03/22 03:54 Crenated Cell Not Reportable 03/03/22 03:54 Elliptocytes Not Reportable 03/03/22 03:54 Acanthocytes (Spur) Not Reportable 03/03/22 03:54 Rouleaux Not Reportable 03/03/22 03:54 Hemoglobin C Crystals Not Reportable 03/03/22 03:54 Schistocytes Not Reportable 03/03/22 03:54 Malaria parasites Not Reportable 03/03/22 03:54 Cash Bodies Not Reportable 03/03/22 03:54 Hem Pathologist Commnt No 03/03/22 03:54 PT 16.9 Sec. (12.2-14.9) H 02/18/22 21:02 INR 1.20 (0.87-1.13) H 02/18/22 21:02 ABG pH 7.411 pH Units (7.350-7.450) 03/02/22 05:18 ABG pCO2 53.2 mm Hg 03/02/22 05:18 ABG pO2 110.5 mm Hg (80.0-90.0) H 03/02/22 05:18 ABG HCO3 33.0 mmol/L (20.0-26.0) H 03/02/22 05:18 ABG O2 Saturation 97.9 % (95.0-99.0) 03/02/22 05:18 ABG O2 Content 11.8 (0.0-44) 03/02/22 05:18 ABG Base Excess 7.4 mmol/L (-2.0-3.0) H 03/02/22 05:18 ABG Hemoglobin 8.6 gm/dl (14.0-18.0) L 03/02/22 05:18 ABG Carboxyhemoglobin 1.4 % (0.0-5.0) 03/02/22 05:18 ABG Methemoglobin 0.6 % (0.0-1.5) 03/02/22 05:18 Oxyhemoglobin 96.0 % (95.0-99.0) 03/02/22 05:18 FiO2 40 % 03/02/22 05:18 Sodium 145 mmol/L (137-145) 03/06/22 04:17 Potassium 3.5 mmol/L (3.6-5.0) L 03/06/22 04:17 Chloride 106.7 mmol/L (98-107) 03/06/22 04:17 Carbon Dioxide 31 mmol/L (22-30) H 03/06/22 04:17 Anion Gap 11 mmol/L 03/06/22 04:17 BUN 20 mg/dL (9-20) 03/06/22 04:17 Creatinine 0.6 mg/dL (0.8-1.3) L 03/06/22 04:17 Estimated GFR > 60 ml/min 03/06/22 04:17 BUN/Creatinine Ratio 33 % 03/06/22 04:17 Glucose 101 mg/dL (75-100) H 03/06/22 04:17 POC Glucose 108 mg/dL (70-105) H 03/06/22 18:04 Lactic Acid 1.20 mmol/L (0.7-2.0) 02/18/22 21:02 Calcium 7.7 mg/dL (8.4-10.2) L 03/06/22 04:17 Phosphorus 2.00 mg/dL (2.5-4.5) L 03/06/22 04:17 Magnesium 1.90 mg/dL (1.7-2.3) 03/06/22 04:17 Total Bilirubin 0.50 mg/dL (0.1-1.2) 02/18/22 21:02 AST 48 units/L (5-40) H 02/18/22 21:02 ALT 64 units/L (7-56) H 02/18/22 21:02 Alkaline Phosphatase 88 units/L (35-129) 02/18/22 21:02 Ammonia 14.0 umol/L (25-60) L 02/18/22 23:22 Troponin T < 0.010 ng/mL (0.00-0.029) 02/18/22 21:02 Total Protein 7.2 g/dL (6.3-8.2) 02/18/22 21:02 Albumin 2.7 g/dL (3.9-5) L 02/18/22 21:02 Albumin/Globulin Ratio 0.6 % 02/18/22 21:02 Urine Color Dark yellow (Yellow) 02/18/22 Unknown Urine Turbidity Clear (Clear) 02/18/22 Unknown Urine pH 7.0 (5.0-7.0) 02/18/22 Unknown Ur Specific [place] 1.015 (1.003-1.030) 02/18/22 Unknown Urine Protein <15 mg/dl mg/dL (Negative) 02/18/22 Unknown Urine Glucose (UA) Negative mg/dL (Negative) 02/18/22 Unknown Urine Ketones Negative mg/dL (Negative) 02/18/22 Unknown Urine Blood Trace (Negative) 02/18/22 Unknown Urine Nitrite Negative (Negative) 02/18/22 Unknown Urine Bilirubin Negative (Negative) 02/18/22 Unknown Urine Urobilinogen < 2.0 mg/dL (<2.0) 02/18/22 Unknown Ur Leukocyte Esterase Negative (Negative) 02/18/22 Unknown Urine WBC (Auto) 2.0 /HPF (0.0-6.0) 02/18/22 Unknown Urine RBC (Auto) 9.0 /HPF (0.0-6.0) 02/18/22 Unknown Urine Mucus Few /HPF 02/18/22 Unknown Urine Opiates Screen Negative 02/18/22 Unknown Urine Methadone Screen Negative 02/18/22 Unknown Ur Barbiturates Screen Negative 02/18/22 Unknown Ur Phencyclidine Scrn Negative 02/18/22 Unknown Ur Amphetamines Screen Negative 02/18/22 Unknown U Benzodiazepines Scrn Negative 02/18/22 Unknown Urine Cocaine Screen Negative 02/18/22 Unknown U Marijuana (THC) Screen Negative 02/18/22 Unknown Drugs of Abuse Note Disclamer 02/18/22 Unknown Plasma/Serum Alcohol < 0.01 % (0-0.07) 02/18/22 21:02 Horowitz/IV: Voiding Method Indwelling Catheter Active Medications - Current Medications Current Medications: Generic Name Dose Route Start Last Admin Trade Name Freq PRN Reason Stop Dose Admin Acetaminophen 650 mg 03/03/22 09:00 Acetaminophen 325 Mg/10.15 Ml Oral Liqd Unit Dose FEEDTUBE Q4H PRN Pain, Mild (1-3); TEMP > 100.4 Albuterol 2.5 mg 02/23/22 16:00 03/06/22 19:23 Albuterol 2.5 Mg/3 Ml Nebu IH 2.5 mg Q4HRT LAZARUS Administration Famotidine 20 mg 02/25/22 10:00 03/06/22 10:25 Famotidine 20 Mg Tab FEEDTUBE 20 mg BID LAZARUS Administration Heparin Sodium (Porcine) 5,000 unit 02/19/22 06:00 03/06/22 14:00 Heparin 5,000 Unit/1 Ml Vial SUB-Q 5,000 unit Q8HR LAZARUS Administration Hydrophilic Ointment 1 applic 02/24/22 15:05 Lip Therapy Vaseline TP Q2HR PRN Dry Lips Levetiracetam 500 mg 02/25/22 22:00 03/06/22 10:25 Levetiracetam 500 Mg/5 Ml Oral Liqd FEEDTUBE 500 mg BID LAZARUS Administration Levothyroxine Sodium 25 mcg 02/26/22 06:00 03/06/22 06:46 Levothyroxine 25 Mcg Tab FEEDTUBE 25 mcg QAM@0600 LAZARUS Administration Magnesium Hydroxide 30 ml 02/19/22 02:02 Magnesium Hydroxide (Mom) Oral Liqd Udc PO Q4H PRN Constipation Morphine Sulfate 2 mg 02/19/22 02:02 Morphine 2 Mg/1 Ml Inj IV Q4H PRN Pain, Moderate (4-6) Morphine Sulfate 4 mg 02/19/22 02:02 Morphine 4 Mg/1 Ml Inj IV Q4H PRN Pain , Severe (7-10) Multi-Ingred Cream/Lotion/Oil/Oint 1 applic 02/24/22 15:05 Mineral Oil/Petrolatum, White Ophth Oint 3.5 Gm OU Q4HR PRN Dry Eye(s) Ondansetron HCl 4 mg 02/19/22 02:02 Ondansetron 4 Mg/2 Ml Inj IV Q8H PRN Nausea And Vomiting Pravastatin Sodium 40 mg 02/25/22 22:00 03/05/22 21:00 Pravastatin 40 Mg Tab FEEDTUBE 40 mg QHS LAZARUS Administration Senna/Docusate Sodium 1 tab 02/24/22 22:00 03/06/22 10:25 Sennosides/Docusate Sodium 8.6/50 Mg Tab FEEDTUBE 1 tab BID LAZARUS Administration Sodium Chloride 10 ml 02/19/22 10:00 03/06/22 10:25 Sodium Chloride 0.9% 10 Ml Flush Syringe IV 10 ml BID LAZARUS Administration Sodium Chloride 10 ml 02/19/22 02:02 03/03/22 14:21 Sodium Chloride 0.9% 10 Ml Flush Syringe IV 10 ml PRN PRN Administration LINE FLUSH Sodium Phosphate 250 mg 03/06/22 10:00 03/06/22 19:36 K-Phos Neutral 250 Mg Tab FEEDTUBE 03/06/22 22:01 250 mg QID LAZARUS Administration Nutrition/Malnutrition Assess - Dietary Evaluation Nutrition/Malnutrition Findings: Nutrition Notes Start: 02/19/22 14:29 Freq: Status: Active Protocol: Document 02/28/22 15:34 TIERRA (Rec: 02/28/22 15:46 TIERRA [id number]) Nutrition Notes Initial or Follow up Brief Note Current Diet TF-Vital AF 1.2 Yordy @ 50 ml/hr (from L 02/27). Height 5 ft 3 in Weight 63.2 kg [place] Body Weight (kg) 56.36 BMI 24.7 Weight change and time frame No body weight change reported in 6 days. Weight Status Appropriate Subjective/Other Information RD consult for routine F/U on TF tolerance/continuation. TF continues as prescribed, no further information available at the time, will assess at F /U. Pt was extubated this morning, but soon had to be intubated again, now Pt continues on Mechanical Ventilation, O2 saturation @ 94%, according to Physical Assessment History notes. Percent of energy/protein needs met: Prescribed TF-Vital AF 1.2 Yordy @ 50 ml/hr provides for energy/protein needs (1,450 Kcal/91 g) during LOS, 104% Kcal; 100% AA. #1 Nutrition Diagnosis Inadequate oral intake Comments: Pt was extubated this morning, but soon had to be intubated again, now Pt continues on Mechanical Ventilation, O2 saturation @ 94%, according to Physical Assessment History notes. Diagnosis Progress(for reassessment Continues documentation) Is patient on ventilator? Yes Is Patient Ambulatory and/or Out of Bed No REE-([facility]-confined to bed) 1591.836 Kcal/Kg value to use for calculation 22 Approximate Energy Requirements Using 1390 kcal/Kg Calculation Used for Recommendations Kcal/kg Additional Notes Protein: 1.2-2 g/Kg ABW; 76- 126 g/day. Fluids: 1 ml/Kcal, or as per MD. Nutrition Intervention Nutrition Support: Continue TF-Vital AF 1.2 Yordy @ 50 ml/hr. Flush: 70 ml water Q 4 hr, or as per MD. Kcal 1,450 Protein (gm) 91 Carbohydrates (gm) 134 Fat (gm) 65 Fluid (mL) 980 Fiber (gm) 6 % RDI: 104% Kcal; 100% AA. Goal #1 Provide at least 75% of energy /protein needs through Enteral Feeding during LOS. Goal #2 Adjust the dietary intervention to better serve Pt's needs and clinical conditions during LOS. Follow-Up By: 03/07/22 Additional Comments Continue monitoring on ventilation status, TF tolerance, and BM.
[2022-03-06] MEDS: PRAVASTATIN 40 MG TAB FEEDTUBE SCH (21:48)
[2022-03-07] MEDS: ALBUTEROL 2.5 MG/3 ML NEBU IH SCH ×6 (04:37→23:53)
[2022-03-07] MEDS: HEPARIN 5,000 UNIT/1 ML VIAL SUB-Q SCH ×3 (05:40→22:28)
[2022-03-07] MEDS: LEVOTHYROXINE 25 MCG TAB FEEDTUBE SCH (05:40)
[2022-03-07] MEDS: levETIRAcetam 500 MG/5 ML ORAL LIQD FEEDTUBE SCH ×2 (10:11→22:29)
[2022-03-07] MEDS: FAMOTIDINE 20 MG TAB FEEDTUBE SCH ×2 (10:11→22:29)
[2022-03-07] MEDS: SENNOSIDES/DOCUSATE SODIUM 8.6/50 MG TAB FEEDTUBE SCH ×2 (10:11→22:28)
--- NOTE | 2022-03-07 11:52 | Progress Note ---
<KEATON GOLD - Last Filed: 03/07/22 18:52> Assessment and Plan Assessment and plan: This is a 51-year-old male with HTN, seizure disorder, Down syndrome, HLD, partial blindness admitted with aspiration pneumonia, probable bronchogenic carcinoma, acute hypoxic respiratory failure and acute encephalopathy Hospital course to date: 02/19/2022. Consult pulmonary for further evaluation and possible bronchoscopy. I suspect patient has component of aspiration pneumonia as well. We will obtain a speech therapy evaluation for swallowing and start empiric antibiotics. Continue O2 supplementation to maintain sats greater than 92%. 02/20/2022. Pulmonary feels that the abnormality seen on CT scan is highly unlikely for a mass given negative chest x-ray 1 month ago and no risk factors. Etiology is likely secondary to aspiration from possibly a foreign body most likely food with atelectasis of the right lower lobe. Bronchoscopy is needed in the case to evaluate to see if lung mass is there vs foreign body, but at this time not able to do because no identifiable person that is able to give consent. Continue aspiration precautions and continue speech therapy evaluation for swallowing. Keep n.p.o. for now 02/21/2022. Patient remains NPO. Consider DHT placement. Follow-up with speech therapy evaluation. Pulmonology to consider bronchoscopy if able to obtain consent. Continue IV antibiotics for aspiration pneumonia 02/22/2022. Patient remains NPO. Consider DHT placement. Follow-up with speech therapy evaluation. Pulmonology to consider bronchoscopy if able to obtain consent. Continue IV antibiotics for aspiration pneumonia 02/23/2022. DHT placed yesterday. TF initiated for nutritional support. Patient currently with strict NPO. Aspiration precautions. Pulmonology to consider bronchoscopy if able to obtain consent. Continue IV antibiotics for aspiration pneumonia 02/24: Patient was transferred to the ICU for further monitoring. This morning patient remained on high flow nasal cannula on 40 L/100% and despite repeated nasotracheal suctioning patient SPO2 remained in the 80s. Patient was placed on nonrebreather and SPO2 increased to upper 80s. Patient was subsequently intubated by anesthesia. Started on sedation. 02/25: Patient remains sedated on fentanyl, potassium and magnesium repleted. IV fluids and amlodipine discontinued. Possible bronchoscopy tomorrow. 02/26: Patient had a bronchoscopy today which showed mucus and no endobronchial lesions or masses. FiO2 was increased to 100 during and postprocedure weaning as tolerated. Repeat CXR is much improved after bronc. Given 1 L LR bolus due to hypotension. No acute events reported overnight. 02/27: Decreased PEEP, will repeat CT of chest. no acute changes overnight. 02/28: Patient was extubated today however had to be be intubated shortly after. Patient ETT looked mispositioned on x-ray and Dr. Alonzo did do a bedside bronc. Patient was briefly hypotensive and on Levophed postintubation however Levophed was quickly titrated off and patient did not require central line. No acute events reported overnight. Will obtain CT neck d/t difficulty intubating. Ethic committee consulted. 03/04: Overnight patient was hypotensive and started on IVF. Patient started on steroids as no air leak noted and hypotension and given 2 L LR 03/05: Overnight patient received bolus per RN report, no orders seen. Continue supportive care 03/03: SB on the monitor, HR as low as 37, VSS. Will continue to monitor for now. Awaiting on desicion from [facility] for possible trach and PEG. Continue daily air leak per [facility] 03/04: MAIDA overnight. Remains stable on the vent. Awaiting on desicion from [facility] for possible trach and PEG. Continue current supportive measures 03/05: MAIDA overnight. Awaiting on desicion from [facility] for possible trach and PEG. Midodrine held yesterday, HR improved. Continue current supportive measures. Daily PSV trial as tolerated per [facility] 03/06: Remains stable on the vent. Continue current supportive measures, daily PSV trial per [facility]. Awaiting on desicion for possible trach and PEG. 03/07: MAIDA overnight, remains stable. Continue daily PSV trial as tolerated. Awaiting on desicion for possible trach and PEG. Neuro: Acute encephalopathy, h/o seizure disorder, Down syndrome, partial blindness -Patient currently sedated with propofol -RASS goal 0 to -1 -Reorientation as needed -Maintain sleep-wake cycle -aspiration/seizure precautions -As needed analgesia -CT head showed no acute abnormality -Continue Keppra Cardiac: Hypotension, h/o HTN, HLD -Cardiology consulted, appreciate recommendations -Blood pressure monitoring per protocol -d/c amlodipine -Midodrine TID- held due to bradycardia. BP stable Respiratory: Acute hypoxic respiratory failure, r/o bronchogenic carcinoma -[facility] consulted, appreciate recommendations -Intubated on 02/24 with a 8.0 at 23 at the lips but extubated 02/28 -reintubated 02/28 with 8.0 OETT -Vent settings: AC rate 14, TV 360, PEEP 6, FO2 30% -See RT notes for titration -VAP bundle -SPO2 monitoring -02/18 CTA chest showed no evidence of pulmonary embolism, suspected bronchogenic carcinoma with associated obstruction of the right lower lobe proximal bronchus segment, 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 adenopathy and suspected to left lower lobe metastatic nodule -02/26 Bronch->mucous, no lesion noted -02/27 CT chest showed right mainstem bronchus patent with small amount of interval bronchial fluid which may be mucus (this may account for the appearance of the prior CTA chest fluid-filled airway rather than entering bronchial lesion), previously seen complete left lower lobe since related to bronchial occlusion has significantly improved, there is persistent compressive atelectasis in the right lower lung secondary to the pleural effusion, bilateral pleural effusions, right lung pneumonia -CT neck showed no acute changes - IV Steroids stopped GI: Moderate protein calorie malnutrition -PPI -NTR consulted for tube feedings -BR: Senokot S : Hypernatremia (resolved) -FWF 200 ml q4 hr -Monitor intake and output -Renally dose medications -Avoid nephrotoxic medications -Trend BMP ID: Aspiration PNA -S/p Rocephin for 5 days (02/19-02/24) -Monitor WBC and temperature curve Endo: NAD -Avoid hypoglycemia -Accu-Cheks every 6 -Avoid hypoglycemia Heme: NAD -Trend CBC -Transfuse hemoglobin less than 7 -SCDs to BLE while in bed The high probability of a clinically significant, sudden or life threatening deterioration of the [resp] system(s) required my full and direct attention, intervention and personal management. The aggregate critical care time was [60] minutes. This time is in addition to time spent performing reported procedures but includes the following: [x] Data Review and interpretation [x] Patient assessment and monitoring of vital signs [x] Documentation [x] Medication orders and management Disposition Plan: ICU Total Time Spent with Patient (Minutes): 60 History Interval history: Patient seen and examined at the bedside. Remains stable on low vent setting, not on any sedation. Open eyes spontaneously and move extremities but does not follow any commands. SR on the monitor this am, VSS. MAIDA overnight Hospitalist Physical - Physical exam Narrative exam: General appearance: Present: no acute distress, well-nourished, obese - EENT Eyes: Present: PERRL - Neck Neck: Present: normal ROM - Respiratory Respiratory effort: normal Respiratory: bilateral: rhonchi - Cardiovascular Rhythm: regular Heart Sounds: Present: S1 & S2 - Extremities Extremities: no ischemia, pulses intact, pulses symmetrical Extremity abnormal: edema - Peripheral Assessment Generalized Edema Type: Non-pitting Edema Degree: 1+ Capillary Refill: < 3 seconds Skin Temperature: Warm Peripheral Pulses: within normal limits - Abdominal General gastrointestinal: soft, non-distended, normal bowel sounds - Integumentary Integumentary: Present: warm, dry - Psychiatric Psychiatric: other (Intubated, unresponsive. Not on any sedations) - Neurologic Neurologic: moves all extremities, other (Intubated, unresponsive. Not on any sedations) - Allied Health Allied health notes reviewed: nursing, case management - Constitutional Vitals: Temp Pulse Resp BP Pulse Ox 98.6 F 77 18 127/64 96 03/07/22 11:29 03/07/22 11:45 03/07/22 11:45 03/07/22 11:41 03/07/22 11:41 HEART Score - HEART Score Troponin: Troponin T < 0.010 ng/mL (0.00-0.029) 02/18/22 21:02 Results - Labs CBC & Chem 7: 03/06/22 04:17 03/06/22 04:17 Labs: Laboratory Last Values WBC 13.4 K/mm3 (4.5-11.0) H 03/06/22 04:17 RBC 2.85 M/mm3 (3.65-5.03) L 03/06/22 04:17 Hgb 9.4 gm/dl (11.8-15.2) L 03/06/22 04:17 Hct 29.0 % (35.5-45.6) L 03/06/22 04:17 MCV 102 fl (84-94) H 03/06/22 04:17 MCH 33 pg (28-32) H 03/06/22 04:17 MCHC 32 % (32-34) 03/06/22 04:17 RDW 16.4 % (13.2-15.2) H 03/06/22 04:17 Plt Count 289 K/mm3 (140-440) 03/06/22 04:17 Lymph % (Auto) 5.5 % (13.4-35.0) L 02/20/22 04:59 Antelope % (Auto) 12.1 % (0.0-7.3) H 02/20/22 04:59 Eos % (Auto) 0.2 % (0.0-4.3) 02/20/22 04:59 Baso % (Auto) 0.8 % (0.0-1.8) 02/20/22 04:59 Lymph # (Auto) 0.6 K/mm3 (1.2-5.4) L 02/20/22 04:59 Antelope # (Auto) 1.4 K/mm3 (0.0-0.8) H 02/20/22 04:59 Eos # (Auto) 0.0 K/mm3 (0.0-0.4) 02/20/22 04:59 Baso # (Auto) 0.1 K/mm3 (0.0-0.1) 02/20/22 04:59 Add Manual Diff Complete 03/03/22 03:54 Total Counted 100 03/03/22 03:54 Seg Neutrophils % 81.4 % (40.0-70.0) H 02/20/22 04:59 Seg Neuts % (Manual) 95.0 % (40.0-70.0) H 03/03/22 03:54 Band Neutrophils % 0 % 03/03/22 03:54 Lymphocytes % (Manual) 3.0 % (13.4-35.0) L 03/03/22 03:54 Reactive Lymphs % (Man) 0 % 03/03/22 03:54 Monocytes % (Manual) 2.0 % (0.0-7.3) 03/03/22 03:54 Eosinophils % (Manual) 0 % (0.0-4.3) 03/03/22 03:54 Basophils % (Manual) 0 % (0.0-1.8) 03/03/22 03:54 Metamyelocytes % 0 % 03/03/22 03:54 Myelocytes % 0 % 03/03/22 03:54 Promyelocytes % 0 % 03/03/22 03:54 Blast Cells % 0 % 03/03/22 03:54 Nucleated RBC % Not Reportable 03/03/22 03:54 Seg Neutrophils # 9.2 K/mm3 (1.8-7.7) H 02/20/22 04:59 Seg Neutrophils # Man 18.5 K/mm3 (1.8-7.7) H 03/03/22 03:54 Band Neutrophils # 0.0 K/mm3 03/03/22 03:54 Lymphocytes # (Manual) 0.6 K/mm3 (1.2-5.4) L 03/03/22 03:54 Abs React Lymphs (Man) 0.0 K/mm3 03/03/22 03:54 Monocytes # (Manual) 0.4 K/mm3 (0.0-0.8) 03/03/22 03:54 Eosinophils # (Manual) 0.0 K/mm3 (0.0-0.4) 03/03/22 03:54 Basophils # (Manual) 0.0 K/mm3 (0.0-0.1) 03/03/22 03:54 Metamyelocytes # 0.0 K/mm3 03/03/22 03:54 Myelocytes # 0.0 K/mm3 03/03/22 03:54 Promyelocytes # 0.0 K/mm3 03/03/22 03:54 Blast Cells # 0.0 K/mm3 03/03/22 03:54 WBC Morphology Not Reportable 03/03/22 03:54 Hypersegmented Neuts Not Reportable 03/03/22 03:54 Hyposegmented Neuts Not Reportable 03/03/22 03:54 Hypogranular Neuts Not Reportable 03/03/22 03:54 Smudge Cells Not Reportable 03/03/22 03:54 Toxic Granulation Not Reportable 03/03/22 03:54 Toxic Vacuolation Not Reportable 03/03/22 03:54 Dohle Bodies Not Reportable 03/03/22 03:54 Pelger-Huet Anomaly Not Reportable 03/03/22 03:54 Lakshmi Rods Not Reportable 03/03/22 03:54 Platelet Estimate Consistent w auto 03/03/22 03:54 Clumped Platelets Not Reportable 03/03/22 03:54 Plt Clumps, EDTA Not Reportable 03/03/22 03:54 Large Platelets Not Reportable 03/03/22 03:54 Giant Platelets Not Reportable 03/03/22 03:54 Platelet Satelliting Not Reportable 03/03/22 03:54 Plt Morphology Comment Not Reportable 03/03/22 03:54 RBC Morphology Not Reportable 03/03/22 03:54 Dimorphic RBCs Not Reportable 03/03/22 03:54 Polychromasia Not Reportable 03/03/22 03:54 Hypochromasia Not Reportable 03/03/22 03:54 Poikilocytosis Not Reportable 03/03/22 03:54 Anisocytosis 1+ 03/03/22 03:54 Microcytosis Not Reportable 03/03/22 03:54 Macrocytosis Not Reportable 03/03/22 03:54 Spherocytes Not Reportable 03/03/22 03:54 Pappenheimer Bodies Not Reportable 03/03/22 03:54 Sickle Cells Not Reportable 03/03/22 03:54 Target Cells Not Reportable 03/03/22 03:54 Tear Drop Cells Not Reportable 03/03/22 03:54 Ovalocytes Not Reportable 03/03/22 03:54 Helmet Cells Not Reportable 03/03/22 03:54 [place] Bodies Not Reportable 03/03/22 03:54 Brenton Rings Not Reportable 03/03/22 03:54 Solen Cells Not Reportable 03/03/22 03:54 Bite Cells Not Reportable 03/03/22 03:54 Crenated Cell Not Reportable 03/03/22 03:54 Elliptocytes Not Reportable 03/03/22 03:54 Acanthocytes (Spur) Not Reportable 03/03/22 03:54 Rouleaux Not Reportable 03/03/22 03:54 Hemoglobin C Crystals Not Reportable 03/03/22 03:54 Schistocytes Not Reportable 03/03/22 03:54 Malaria parasites Not Reportable 03/03/22 03:54 Cash Bodies Not Reportable 03/03/22 03:54 Hem Pathologist Commnt No 03/03/22 03:54 PT 16.9 Sec. (12.2-14.9) H 02/18/22 21:02 INR 1.20 (0.87-1.13) H 02/18/22 21:02 ABG pH 7.411 pH Units (7.350-7.450) 03/02/22 05:18 ABG pCO2 53.2 mm Hg 03/02/22 05:18 ABG pO2 110.5 mm Hg (80.0-90.0) H 03/02/22 05:18 ABG HCO3 33.0 mmol/L (20.0-26.0) H 03/02/22 05:18 ABG O2 Saturation 97.9 % (95.0-99.0) 03/02/22 05:18 ABG O2 Content 11.8 (0.0-44) 03/02/22 05:18 ABG Base Excess 7.4 mmol/L (-2.0-3.0) H 03/02/22 05:18 ABG Hemoglobin 8.6 gm/dl (14.0-18.0) L 03/02/22 05:18 ABG Carboxyhemoglobin 1.4 % (0.0-5.0) 03/02/22 05:18 ABG Methemoglobin 0.6 % (0.0-1.5) 03/02/22 05:18 Oxyhemoglobin 96.0 % (95.0-99.0) 03/02/22 05:18 FiO2 40 % 03/02/22 05:18 Sodium 145 mmol/L (137-145) 03/06/22 04:17 Potassium 3.5 mmol/L (3.6-5.0) L 03/06/22 04:17 Chloride 106.7 mmol/L (98-107) 03/06/22 04:17 Carbon Dioxide 31 mmol/L (22-30) H 03/06/22 04:17 Anion Gap 11 mmol/L 03/06/22 04:17 BUN 20 mg/dL (9-20) 03/06/22 04:17 Creatinine 0.6 mg/dL (0.8-1.3) L 03/06/22 04:17 Estimated GFR > 60 ml/min 03/06/22 04:17 BUN/Creatinine Ratio 33 % 03/06/22 04:17 Glucose 101 mg/dL (75-100) H 03/06/22 04:17 POC Glucose 116 mg/dL (70-105) H 03/07/22 05:14 Lactic Acid 1.20 mmol/L (0.7-2.0) 02/18/22 21:02 Calcium 7.7 mg/dL (8.4-10.2) L 03/06/22 04:17 Phosphorus 2.00 mg/dL (2.5-4.5) L 03/06/22 04:17 Magnesium 1.90 mg/dL (1.7-2.3) 03/06/22 04:17 Total Bilirubin 0.50 mg/dL (0.1-1.2) 02/18/22 21:02 AST 48 units/L (5-40) H 02/18/22 21:02 ALT 64 units/L (7-56) H 02/18/22 21:02 Alkaline Phosphatase 88 units/L (35-129) 02/18/22 21:02 Ammonia 14.0 umol/L (25-60) L 02/18/22 23:22 Troponin T < 0.010 ng/mL (0.00-0.029) 02/18/22 21:02 Total Protein 7.2 g/dL (6.3-8.2) 02/18/22 21:02 Albumin 2.7 g/dL (3.9-5) L 02/18/22 21:02 Albumin/Globulin Ratio 0.6 % 02/18/22 21:02 Urine Color Dark yellow (Yellow) 02/18/22 Unknown Urine Turbidity Clear (Clear) 02/18/22 Unknown Urine pH 7.0 (5.0-7.0) 02/18/22 Unknown Ur Specific Nicholson 1.015 (1.003-1.030) 02/18/22 Unknown Urine Protein <15 mg/dl mg/dL (Negative) 02/18/22 Unknown Urine Glucose (UA) Negative mg/dL (Negative) 02/18/22 Unknown Urine Ketones Negative mg/dL (Negative) 02/18/22 Unknown Urine Blood Trace (Negative) 02/18/22 Unknown Urine Nitrite Negative (Negative) 02/18/22 Unknown Urine Bilirubin Negative (Negative) 02/18/22 Unknown Urine Urobilinogen < 2.0 mg/dL (<2.0) 02/18/22 Unknown Ur Leukocyte Esterase Negative (Negative) 02/18/22 Unknown Urine WBC (Auto) 2.0 /HPF (0.0-6.0) 02/18/22 Unknown Urine RBC (Auto) 9.0 /HPF (0.0-6.0) 02/18/22 Unknown Urine Mucus Few /HPF 02/18/22 Unknown Urine Opiates Screen Negative 02/18/22 Unknown Urine Methadone Screen Negative 02/18/22 Unknown Ur Barbiturates Screen Negative 02/18/22 Unknown Ur Phencyclidine Scrn Negative 02/18/22 Unknown Ur Amphetamines Screen Negative 02/18/22 Unknown U Benzodiazepines Scrn Negative 02/18/22 Unknown Urine Cocaine Screen Negative 02/18/22 Unknown U Marijuana (THC) Screen Negative 02/18/22 Unknown Drugs of Abuse Note Disclamer 02/18/22 Unknown Plasma/Serum Alcohol < 0.01 % (0-0.07) 02/18/22 21:02 Horowitz/IV: Voiding Method Indwelling Catheter Active Medications - Current Medications Current Medications: Generic Name Dose Route Start Last Admin Trade Name Freq PRN Reason Stop Dose Admin Acetaminophen 650 mg 03/03/22 09:00 Acetaminophen 325 Mg/10.15 Ml Oral Liqd Unit Dose FEEDTUBE Q4H PRN Pain, Mild (1-3); TEMP > 100.4 Albuterol 2.5 mg 02/23/22 16:00 03/07/22 11:40 Albuterol 2.5 Mg/3 Ml Nebu IH 2.5 mg Q4HRT LAZARUS Administration Famotidine 20 mg 02/25/22 10:00 03/07/22 10:11 Famotidine 20 Mg Tab FEEDTUBE 20 mg BID LAZARUS Administration Heparin Sodium (Porcine) 5,000 unit 02/19/22 06:00 03/07/22 05:40 Heparin 5,000 Unit/1 Ml Vial SUB-Q 5,000 unit Q8HR LAZARUS Administration Hydrophilic Ointment 1 applic 02/24/22 15:05 Lip Therapy Vaseline TP Q2HR PRN Dry Lips Levetiracetam 500 mg 02/25/22 22:00 03/07/22 10:11 Levetiracetam 500 Mg/5 Ml Oral Liqd FEEDTUBE 500 mg BID LAZARUS Administration Levothyroxine Sodium 25 mcg 02/26/22 06:00 03/07/22 05:40 Levothyroxine 25 Mcg Tab FEEDTUBE 25 mcg QAM@0600 LAZARUS Administration Magnesium Hydroxide 30 ml 02/19/22 02:02 Magnesium Hydroxide (Mom) Oral Liqd Udc PO Q4H PRN Constipation Morphine Sulfate 2 mg 02/19/22 02:02 Morphine 2 Mg/1 Ml Inj IV Q4H PRN Pain, Moderate (4-6) Morphine Sulfate 4 mg 02/19/22 02:02 Morphine 4 Mg/1 Ml Inj IV Q4H PRN Pain , Severe (7-10) Multi-Ingred Cream/Lotion/Oil/Oint 1 applic 02/24/22 15:05 Mineral Oil/Petrolatum, White Ophth Oint 3.5 Gm OU Q4HR PRN Dry Eye(s) Ondansetron HCl 4 mg 02/19/22 02:02 Ondansetron 4 Mg/2 Ml Inj IV Q8H PRN Nausea And Vomiting Pravastatin Sodium 40 mg 02/25/22 22:00 03/06/22 21:48 Pravastatin 40 Mg Tab FEEDTUBE 40 mg QHS LAZARUS Administration Senna/Docusate Sodium 1 tab 02/24/22 22:00 03/07/22 10:11 Sennosides/Docusate Sodium 8.6/50 Mg Tab FEEDTUBE 1 tab BID LAZARUS Administration Sodium Chloride 10 ml 02/19/22 10:00 03/07/22 10:12 Sodium Chloride 0.9% 10 Ml Flush Syringe IV 10 ml BID LAZARUS Administration Sodium Chloride 10 ml 02/19/22 02:02 03/03/22 14:21 Sodium Chloride 0.9% 10 Ml Flush Syringe IV 10 ml PRN PRN Administration LINE FLUSH Nutrition/Malnutrition Assess - Dietary Evaluation Nutrition/Malnutrition Findings: Nutrition Notes Start: 02/19/22 14:29 Freq: Status: Active Protocol: Document 02/28/22 15:34 TIERRA (Rec: 02/28/22 15:46 TIERRA [id number]) Nutrition Notes Initial or Follow up Brief Note Current Diet TF-Vital AF 1.2 Yordy @ 50 ml/hr (from L 02/27). Height 5 ft 3 in Weight 63.2 kg [place] Body Weight (kg) 56.36 BMI 24.7 Weight change and time frame No body weight change reported in 6 days. Weight Status Appropriate Subjective/Other Information RD consult for routine F/U on TF tolerance/continuation. TF continues as prescribed, no further information available at the time, will assess at F /U. Pt was extubated this morning, but soon had to be intubated again, now Pt continues on Mechanical Ventilation, O2 saturation @ 94%, according to Physical Assessment History notes. Percent of energy/protein needs met: Prescribed TF-Vital AF 1.2 Yordy @ 50 ml/hr provides for energy/protein needs (1,450 Kcal/91 g) during LOS, 104% Kcal; 100% AA. #1 Nutrition Diagnosis Inadequate oral intake Comments: Pt was extubated this morning, but soon had to be intubated again, now Pt continues on Mechanical Ventilation, O2 saturation @ 94%, according to Physical Assessment History notes. Diagnosis Progress(for reassessment Continues documentation) Is patient on ventilator? Yes Is Patient Ambulatory and/or Out of Bed No REE-([facility]-confined to bed) 1591.836 Kcal/Kg value to use for calculation 22 Approximate Energy Requirements Using 1390 kcal/Kg Calculation Used for Recommendations Kcal/kg Additional Notes Protein: 1.2-2 g/Kg ABW; 76- 126 g/day. Fluids: 1 ml/Kcal, or as per MD. Nutrition Intervention Nutrition Support: Continue TF-Vital AF 1.2 Yrody @ 50 ml/hr. Flush: 70 ml water Q 4 hr, or as per MD. Kcal 1,450 Protein (gm) 91 Carbohydrates (gm) 134 Fat (gm) 65 Fluid (mL) 980 Fiber (gm) 6 % RDI: 104% Kcal; 100% AA. Goal #1 Provide at least 75% of energy /protein needs through Enteral Feeding during LOS. Goal #2 Adjust the dietary intervention to better serve Pt's needs and clinical conditions during LOS. Follow-Up By: 03/07/22 Additional Comments Continue monitoring on ventilation status, TF tolerance, and BM. <JOAQUIN ROBIN - Last Filed: 03/08/22 07:39> Assessment and Plan Assessment and plan: I saw and evaluated the patient. I agree with the findings and the plan of care as documented in the Nurse Practitioner's~note, with the following corrections and additions. Hospitalist Physical - Constitutional Vitals: Temp Pulse Resp BP Pulse Ox 97.4 F L 51 L 14 87/38 98 03/08/22 03:07 03/08/22 06:00 03/08/22 06:00 03/08/22 06:00 03/08/22 06:00 HEART Score - HEART Score Troponin: Troponin T < 0.010 ng/mL (0.00-0.029) 02/18/22 21:02 Results - Labs CBC & Chem 7: 03/08/22 04:34 03/08/22 04:34 Labs: Laboratory Last Values WBC 9.7 K/mm3 (4.5-11.0) 03/08/22 04:34 RBC 2.86 M/mm3 (3.65-5.03) L 03/08/22 04:34 Hgb 9.2 gm/dl (11.8-15.2) L 03/08/22 04:34 Hct 29.3 % (35.5-45.6) L 03/08/22 04:34 MCV 103 fl (84-94) H 03/08/22 04:34 MCH 32 pg (28-32) 03/08/22 04:34 MCHC 31 % (32-34) L 03/08/22 04:34 RDW 16.9 % (13.2-15.2) H 03/08/22 04:34 Plt Count 308 K/mm3 (140-440) 03/08/22 04:34 Lymph % (Auto) 5.5 % (13.4-35.0) L 02/20/22 04:59 Antelope % (Auto) 12.1 % (0.0-7.3) H 02/20/22 04:59 Eos % (Auto) 0.2 % (0.0-4.3) 02/20/22 04:59 Baso % (Auto) 0.8 % (0.0-1.8) 02/20/22 04:59 Lymph # (Auto) 0.6 K/mm3 (1.2-5.4) L 02/20/22 04:59 [place]elope # (Auto) 1.4 K/mm3 (0.0-0.8) H 02/20/22 04:59 Eos # (Auto) 0.0 K/mm3 (0.0-0.4) 02/20/22 04:59 Baso # (Auto) 0.1 K/mm3 (0.0-0.1) 02/20/22 04:59 Add Manual Diff Complete 03/03/22 03:54 Total Counted 100 03/03/22 03:54 Seg Neutrophils % 81.4 % (40.0-70.0) H 02/20/22 04:59 Seg Neuts % (Manual) 95.0 % (40.0-70.0) H 03/03/22 03:54 Band Neutrophils % 0 % 03/03/22 03:54 Lymphocytes % (Manual) 3.0 % (13.4-35.0) L 03/03/22 03:54 Reactive Lymphs % (Man) 0 % 03/03/22 03:54 Monocytes % (Manual) 2.0 % (0.0-7.3) 03/03/22 03:54 Eosinophils % (Manual) 0 % (0.0-4.3) 03/03/22 03:54 Basophils % (Manual) 0 % (0.0-1.8) 03/03/22 03:54 Metamyelocytes % 0 % 03/03/22 03:54 Myelocytes % 0 % 03/03/22 03:54 Promyelocytes % 0 % 03/03/22 03:54 Blast Cells % 0 % 03/03/22 03:54 Nucleated RBC % Not Reportable 03/03/22 03:54 Seg Neutrophils # 9.2 K/mm3 (1.8-7.7) H 02/20/22 04:59 Seg Neutrophils # Man 18.5 K/mm3 (1.8-7.7) H 03/03/22 03:54 Band Neutrophils # 0.0 K/mm3 03/03/22 03:54 Lymphocytes # (Manual) 0.6 K/mm3 (1.2-5.4) L 03/03/22 03:54 Abs React Lymphs (Man) 0.0 K/mm3 03/03/22 03:54 Monocytes # (Manual) 0.4 K/mm3 (0.0-0.8) 03/03/22 03:54 Eosinophils # (Manual) 0.0 K/mm3 (0.0-0.4) 03/03/22 03:54 Basophils # (Manual) 0.0 K/mm3 (0.0-0.1) 03/03/22 03:54 Metamyelocytes # 0.0 K/mm3 03/03/22 03:54 Myelocytes # 0.0 K/mm3 03/03/22 03:54 Promyelocytes # 0.0 K/mm3 03/03/22 03:54 Blast Cells # 0.0 K/mm3 03/03/22 03:54 WBC Morphology Not Reportable 03/03/22 03:54 Hypersegmented Neuts Not Reportable 03/03/22 03:54 Hyposegmented Neuts Not Reportable 03/03/22 03:54 Hypogranular Neuts Not Reportable 03/03/22 03:54 Smudge Cells Not Reportable 03/03/22 03:54 Toxic Granulation Not Reportable 03/03/22 03:54 Toxic Vacuolation Not Reportable 03/03/22 03:54 Dohle Bodies Not Reportable 03/03/22 03:54 Pelger-Huet Anomaly Not Reportable 03/03/22 03:54 Lakshmi Rods Not Reportable 03/03/22 03:54 Platelet Estimate Consistent w auto 03/03/22 03:54 Clumped Platelets Not Reportable 03/03/22 03:54 Plt Clumps, EDTA Not Reportable 03/03/22 03:54 Large Platelets Not Reportable 03/03/22 03:54 Giant Platelets Not Reportable 03/03/22 03:54 Platelet Satelliting Not Reportable 03/03/22 03:54 Plt Morphology Comment Not Reportable 03/03/22 03:54 RBC Morphology Not Reportable 03/03/22 03:54 Dimorphic RBCs Not Reportable 03/03/22 03:54 Polychromasia Not Reportable 03/03/22 03:54 Hypochromasia Not Reportable 03/03/22 03:54 Poikilocytosis Not Reportable 03/03/22 03:54 Anisocytosis 1+ 03/03/22 03:54 Microcytosis Not Reportable 03/03/22 03:54 Macrocytosis Not Reportable 03/03/22 03:54 Spherocytes Not Reportable 03/03/22 03:54 Pappenheimer Bodies Not Reportable 03/03/22 03:54 Sickle Cells Not Reportable 03/03/22 03:54 Target Cells Not Reportable 03/03/22 03:54 Tear Drop Cells Not Reportable 03/03/22 03:54 Ovalocytes Not Reportable 03/03/22 03:54 Helmet Cells Not Reportable 03/03/22 03:54 [place] Bodies Not Reportable 03/03/22 03:54 [place] Rings Not Reportable 03/03/22 03:54 [place] Cells Not Reportable 03/03/22 03:54 Bite Cells Not Reportable 03/03/22 03:54 Crenated Cell Not Reportable 03/03/22 03:54 Elliptocytes Not Reportable 03/03/22 03:54 Acanthocytes (Spur) Not Reportable 03/03/22 03:54 Rouleaux Not Reportable 03/03/22 03:54 Hemoglobin C Crystals Not Reportable 03/03/22 03:54 Schistocytes Not Reportable 03/03/22 03:54 Malaria parasites Not Reportable 03/03/22 03:54 Cash Bodies Not Reportable 03/03/22 03:54 Hem Pathologist Commnt No 03/03/22 03:54 PT 16.9 Sec. (12.2-14.9) H 02/18/22 21:02 INR 1.20 (0.87-1.13) H 02/18/22 21:02 ABG pH 7.411 pH Units (7.350-7.450) 03/02/22 05:18 ABG pCO2 53.2 mm Hg 03/02/22 05:18 ABG pO2 110.5 mm Hg (80.0-90.0) H 03/02/22 05:18 ABG HCO3 33.0 mmol/L (20.0-26.0) H 03/02/22 05:18 ABG O2 Saturation 97.9 % (95.0-99.0) 03/02/22 05:18 ABG O2 Content 11.8 (0.0-44) 03/02/22 05:18 ABG Base Excess 7.4 mmol/L (-2.0-3.0) H 03/02/22 05:18 ABG Hemoglobin 8.6 gm/dl (14.0-18.0) L 03/02/22 05:18 ABG Carboxyhemoglobin 1.4 % (0.0-5.0) 03/02/22 05:18 ABG Methemoglobin 0.6 % (0.0-1.5) 03/02/22 05:18 Oxyhemoglobin 96.0 % (95.0-99.0) 03/02/22 05:18 FiO2 40 % 03/02/22 05:18 Sodium 144 mmol/L (137-145) 03/08/22 04:34 Potassium 4.0 mmol/L (3.6-5.0) 03/08/22 04:34 Chloride 106.1 mmol/L (98-107) 03/08/22 04:34 Carbon Dioxide 33 mmol/L (22-30) H 03/08/22 04:34 Anion Gap 9 mmol/L 03/08/22 04:34 BUN 16 mg/dL (9-20) 03/08/22 04:34 Creatinine 0.5 mg/dL (0.8-1.3) L 03/08/22 04:34 Estimated GFR > 60 ml/min 03/08/22 04:34 BUN/Creatinine Ratio 32 % 03/08/22 04:34 Glucose 109 mg/dL (75-100) H 03/08/22 04:34 POC Glucose 105 mg/dL (70-105) 03/08/22 04:49 Lactic Acid 1.20 mmol/L (0.7-2.0) 02/18/22 21:02 Calcium 7.6 mg/dL (8.4-10.2) L 03/08/22 04:34 Phosphorus 2.00 mg/dL (2.5-4.5) L 03/06/22 04:17 Magnesium 1.90 mg/dL (1.7-2.3) 03/06/22 04:17 Total Bilirubin 0.50 mg/dL (0.1-1.2) 02/18/22 21:02 AST 48 units/L (5-40) H 02/18/22 21:02 ALT 64 units/L (7-56) H 02/18/22 21:02 Alkaline Phosphatase 88 units/L (35-129) 02/18/22 21:02 Ammonia 14.0 umol/L (25-60) L 02/18/22 23:22 Troponin T < 0.010 ng/mL (0.00-0.029) 02/18/22 21:02 Total Protein 7.2 g/dL (6.3-8.2) 02/18/22 21:02 Albumin 2.7 g/dL (3.9-5) L 02/18/22 21:02 Albumin/Globulin Ratio 0.6 % 02/18/22 21:02 Urine Color Dark yellow (Yellow) 02/18/22 Unknown Urine Turbidity Clear (Clear) 02/18/22 Unknown Urine pH 7.0 (5.0-7.0) 02/18/22 Unknown Ur Specific [place]olson 1.015 (1.003-1.030) 02/18/22 Unknown Urine Protein <15 mg/dl mg/dL (Negative) 02/18/22 Unknown Urine Glucose (UA) Negative mg/dL (Negative) 02/18/22 Unknown Urine Ketones Negative mg/dL (Negative) 02/18/22 Unknown Urine Blood Trace (Negative) 02/18/22 Unknown Urine Nitrite Negative (Negative) 02/18/22 Unknown Urine Bilirubin Negative (Negative) 02/18/22 Unknown Urine Urobilinogen < 2.0 mg/dL (<2.0) 02/18/22 Unknown Ur Leukocyte Esterase Negative (Negative) 02/18/22 Unknown Urine WBC (Auto) 2.0 /HPF (0.0-6.0) 02/18/22 Unknown Urine RBC (Auto) 9.0 /HPF (0.0-6.0) 02/18/22 Unknown Urine Mucus Few /HPF 02/18/22 Unknown Urine Opiates Screen Negative 02/18/22 Unknown Urine Methadone Screen Negative 02/18/22 Unknown Ur Barbiturates Screen Negative 02/18/22 Unknown Ur Phencyclidine Scrn Negative 02/18/22 Unknown Ur Amphetamines Screen Negative 02/18/22 Unknown U Benzodiazepines Scrn Negative 02/18/22 Unknown Urine Cocaine Screen Negative 02/18/22 Unknown U Marijuana (THC) Screen Negative 02/18/22 Unknown Drugs of Abuse Note Disclamer 02/18/22 Unknown Plasma/Serum Alcohol < 0.01 % (0-0.07) 02/18/22 21:02 Horowitz/IV: Voiding Method Indwelling Catheter Active Medications - Current Medications Current Medications: Generic Name Dose Route Start Last Admin Trade Name Freq PRN Reason Stop Dose Admin Acetaminophen 650 mg 03/03/22 09:00 Acetaminophen 325 Mg/10.15 Ml Oral Liqd Unit Dose FEEDTUBE Q4H PRN Pain, Mild (1-3); TEMP > 100.4 Albuterol 2.5 mg 02/23/22 16:00 03/08/22 03:55 Albuterol 2.5 Mg/3 Ml Nebu IH 2.5 mg Q4HRT LAZARUS Administration Famotidine 20 mg 02/25/22 10:00 03/07/22 22:29 Famotidine 20 Mg Tab FEEDTUBE 20 mg BID LAZARUS Administration Heparin Sodium (Porcine) 5,000 unit 02/19/22 06:00 03/08/22 06:35 Heparin 5,000 Unit/1 Ml Vial SUB-Q 5,000 unit Q8HR LAZARUS Administration Hydrophilic Ointment 1 applic 02/24/22 15:05 Lip Therapy Vaseline TP Q2HR PRN Dry Lips Levetiracetam 500 mg 02/25/22 22:00 03/07/22 22:29 Levetiracetam 500 Mg/5 Ml Oral Liqd FEEDTUBE 500 mg BID LAZARUS Administration Levothyroxine Sodium 25 mcg 02/26/22 06:00 03/08/22 06:35 Levothyroxine 25 Mcg Tab FEEDTUBE 25 mcg QAM@0600 LAZARUS Administration Magnesium Hydroxide 30 ml 02/19/22 02:02 Magnesium Hydroxide (Mom) Oral Liqd Udc PO Q4H PRN Constipation Morphine Sulfate 2 mg 02/19/22 02:02 Morphine 2 Mg/1 Ml Inj IV Q4H PRN Pain, Moderate (4-6) Morphine Sulfate 4 mg 02/19/22 02:02 Morphine 4 Mg/1 Ml Inj IV Q4H PRN Pain , Severe (7-10) Multi-Ingred Cream/Lotion/Oil/Oint 1 applic 02/24/22 15:05 Mineral Oil/Petrolatum, White Ophth Oint 3.5 Gm OU Q4HR PRN Dry Eye(s) Ondansetron HCl 4 mg 02/19/22 02:02 Ondansetron 4 Mg/2 Ml Inj IV Q8H PRN Nausea And Vomiting Pravastatin Sodium 40 mg 02/25/22 22:00 03/07/22 22:28 Pravastatin 40 Mg Tab FEEDTUBE 40 mg QHS LAZARUS Administration Senna/Docusate Sodium 1 tab 02/24/22 22:00 03/07/22 22:28 Sennosides/Docusate Sodium 8.6/50 Mg Tab FEEDTUBE 1 tab BID LAZARUS Administration Sodium Chloride 10 ml 02/19/22 10:00 03/07/22 22:00 Sodium Chloride 0.9% 10 Ml Flush Syringe IV 10 ml BID LAZARUS Administration Sodium Chloride 10 ml 02/19/22 02:02 03/03/22 14:21 Sodium Chloride 0.9% 10 Ml Flush Syringe IV 10 ml PRN PRN Administration LINE FLUSH Nutrition/Malnutrition Assess - Dietary Evaluation Nutrition/Malnutrition Findings: Nutrition Notes Start: 02/19/22 14:29 Freq: Status: Active Protocol: Document 03/07/22 14:34 IVAN (Rec: 03/07/22 14:44 IVAN [id number]) Nutrition Notes Initial or Follow up Reassessment Current Diagnosis Hypertension,Respiratory Failure,Hyperlipidemia Other Pertinent Diagnosis Asp pneu, acute encephalopathy , seizure d/o, partial blindness Current Diet TF - Vital AF 1.2 at 50ml/hr Labs/Tests Reviewed Pertinent Medications Reviewed Height 5 ft 3 in Weight 63.2 kg [place] Body Weight (kg) 56.36 BMI 24.7 Weight change and time frame Unable to obtain current wt; bed scale not working - RN aware Weight Status Appropriate Subjective/Other Information Observed TF infusing at goal rate. Pt tolerating TF and remains on vent support. Pt been intubated since 02/24/22 via ETT. Trach/PEG placement pending. Percent of energy/protein needs met: 90% energy 100% pro Burn Absent Trauma Absent #1 Nutrition Diagnosis Inadequate oral intake Diagnosis Progress(for reassessment Continues documentation) Is patient on ventilator? Yes Is Patient Ambulatory and/or Out of Bed No REE-([facility]-confined to bed) [phone] Calculation Used for Recommendations [facility] Additional Notes Pro needs 1.2-2g/k-126g/ day Fluid needs 1ml/kcal Nutrition Intervention Nutrition Support: Continue Vital AF 1.2 at 50ml/ hr with 75ml water flush q4h. Kcal 1,440 Protein (gm) 90 Carbohydrates (gm) 133 Fat (gm) 65 Fluid (mL) 973 Fiber (gm) 6 Goal #1 TF tolerance Goal #2 TF to meet at least 75% energy and pro needs Follow-Up By: 03/14/22 Additional Comments F/U: stable TF, trach/PEG placement, vent status, wt
--- NOTE | 2022-03-07 13:02 | Progress Note ---
Assessment and Plan 61 y/o male with abnormal CT of chest. 03/07/22: Daily PSV trials as tolerated. Still no one to step up as adult friend. patient has now been intubated since 02/24/22 and is approaching the time period in which prolonged mechanical ventilation could lead to significant complications that could be detrimental to health (infection, stenosis, malacia etc). Will discuss again with ethics but in regards to medical necessity, may need to consider two physician consent if no one is able to claim responsibility for this patient. He is a full code and we must work in his best interest to prevent further harm. Continue supportive measures but he is not a candidate for conventional extubation given his mental state, despite being on minimal support. He has already failed this before. 03/06/22: PSV trials daily. Will discuss with RT. Spoke with ethics. Plan in place and awaiting on news from [facility] and [facility]. Continue supportive measures. Patient has been intubated since 02/24/22 and is approaching the 2 week shadi of intubation will need to make decisions soon to avoid unnecessary complications related to prolonged intubation. 03/05/22: Will follow up with ethics today. Awaiting some guidance about consent for trach and peg. This is a medical necessity to liberate patient from mechanical ventilation. Continue supportive measures. Ok with daily PSV trials 03/04/22: Follow up with ethics later this afternoon. Spoke with RT and patient does have cuff leak, will stop steroids. Stopping midodrine as BP is stable and bradycardia likely from this. 03/03/22: Await ethics eval. CM has spoken with state as well. Daily cuff leaks. Will start to wean steroids tomorrow. Midodrine can cause bradycardia. If continues or worsens will stop. Guarded prognosis. 03/02/22: Continue supportive measures. Await ethics consult before surgery consult for trach and peg. no further need for fluid boluses. Will continue stress dose steroids but have daily air leak checks by RT. Still will need trach, will not attempt extubation again. Guarded prognosis. 03/01/22: Patient is having increased urine output. THis could be the cause of new onset hypotension. Will bolus 2 more liters of LR now and reassess. If this continues may need to work up for SIADH including repeat head CT. Follow up ethics review of case. Will need trach for ventilator liberation. Overall prognosis remains guarded. 02/28/22: Will obtain CT neck, noncontrast to look for airway edema or other possible etiologies for failure. Needs ethics consult as given patient's mental state, inability to clear secretions appropriately, will need trach now that he has failed extubation. However he has no family and no POA so no one to give consent. Continue supportive measures. Guarded prognosis. 02/27/22: Continue improvement of oxygenation. Will drop PEEP down today with goal of being at 6 by in the morning. Will repeat CT scan to confirm improvement as no endobronchial lesion was seen, but also to make sure no parenchymal mass. There was no evidence of extrinsic compression during bronch. Likely extubation tomorrow post CT. 02/26/22: Repeat CXR now. Wean Vent as tolerated. Hopeful extubation soon. Mucous removed. NO ENDOBRONCHIAL LESION/MASS 02/25/22: Bronch tentatively planned for tomorrow with therapeutic scope. Awaiting GI lab to give a time. NPO after midnight. Continue high PEEP 02/24/22: WIll attempt to bronch tomorrow morning. NPO after midnight. Just received word from GI lab they are not able to do bronch tomorrow. Cancel NPO order. Continue to feed patient. Repeat ABG in AM along with CXR. 02/21/22: No new pulm recs for today. Please obtain repeat CXR likely on Thursday. If patient happens to get worse, likely not a candidate for bipap given his weak cough and mental state and inability to communicate. If worsens and requires intubation, will bronch then under emergent circumstances if no POA or family is able to be located. Continue CPT. Will discuss with RT about NT suctioning. 02/20/22: Saw speech while on the floor. Would like patient to be NPO now. Discussed with nurse on floor and with IMS. Same recs pulm way as yesterday. Would benefit from bronch if able to get consent as this is not emergent. Continue CPT and q shift NT suctioning. Reviewed admission in the past and of note, patient was recently admitted last month and had a CXR done on the 29 of January that was normal. Given this patient's medical history and the history that I obtained from the nursing staff that at the residential he was eating solid foods, I suspect that this is aspiration, possibly of a foreign body (most likely food) with atelectasis of the right lower lobe. It is highly unlikely that a mass evolved in size in less than a months time and patient, besides age, has no real risk factors for lung carcinoma. Discussed with the nurse and unfortunately there is no identifiable person that is able to give consent. Bronchoscopy is needed in the case to evaluate to see if lung mass is there vs foreign body, but at this time not able to do. In the meanwhile will recommend the following. 1. Will order CPT with neb therapy 3x daily 2. Suggest maybe NT suctioning q shift. May use nasal trumpet, however do not leave this device in the patient 3. Aspiration precautions 4. Consider speech eval to assess swallowing. Will continue to follow. CCT 31 minutes. Subjective Date of service: 03/07/22 Interval history: No acute events Objective Vital Signs - 12hr 03/07/22 03/07/22 03/07/22 01:01 02:00 03:00 Temperature Pulse Rate 71 69 79 Pulse Rate [ Bilateral Throughout] Pulse Rate [ From Monitor] Pulse Rate [ Posterior Bilateral Throughout] Respiratory 14 15 16 Rate Respiratory Rate [Bilateral Throughout] Respiratory Rate [Posterior Bilateral Throughout] Blood Pressure 109/64 111/51 101/75 O2 Sat by Pulse 97 97 95 Oximetry 03/07/22 03/07/22 03/07/22 03:19 04:00 04:38 Temperature 98.9 F Pulse Rate 78 Pulse Rate [ Bilateral Throughout] Pulse Rate [ From Monitor] Pulse Rate [ 75 Posterior Bilateral Throughout] Respiratory 16 Rate Respiratory Rate [Bilateral Throughout] Respiratory 14 Rate [Posterior Bilateral Throughout] Blood Pressure 116/51 O2 Sat by Pulse 95 Oximetry 03/07/22 03/07/22 03/07/22 04:39 05:00 06:01 Temperature Pulse Rate 71 68 74 Pulse Rate [ Bilateral Throughout] Pulse Rate [ From Monitor] Pulse Rate [ Posterior Bilateral Throughout] Respiratory 14 14 Rate Respiratory Rate [Bilateral Throughout] Respiratory Rate [Posterior Bilateral Throughout] Blood Pressure 116/51 106/49 93/43 O2 Sat by Pulse 96 99 97 Oximetry 03/07/22 03/07/22 03/07/22 07:01 07:22 07:30 Temperature 98.8 F Pulse Rate 78 Pulse Rate [ Bilateral Throughout] Pulse Rate [ 82 From Monitor] Pulse Rate [ Posterior Bilateral Throughout] Respiratory 13 14 Rate Respiratory Rate [Bilateral Throughout] Respiratory Rate [Posterior Bilateral Throughout] Blood Pressure 118/59 O2 Sat by Pulse 97 97 Oximetry 03/07/22 03/07/22 03/07/22 07:40 07:46 07:47 Temperature Pulse Rate 78 80 Pulse Rate [ 77 Bilateral Throughout] Pulse Rate [ From Monitor] Pulse Rate [ 78 Posterior Bilateral Throughout] Respiratory Rate Respiratory 15 Rate [Bilateral Throughout] Respiratory 15 Rate [Posterior Bilateral Throughout] Blood Pressure 118/59 O2 Sat by Pulse 98 Oximetry 03/07/22 03/07/22 03/07/22 08:00 09:00 10:00 Temperature Pulse Rate 77 81 75 Pulse Rate [ Bilateral Throughout] Pulse Rate [ From Monitor] Pulse Rate [ Posterior Bilateral Throughout] Respiratory 14 16 15 Rate Respiratory Rate [Bilateral Throughout] Respiratory Rate [Posterior Bilateral Throughout] Blood Pressure 118/59 116/51 111/56 O2 Sat by Pulse 99 97 97 Oximetry 03/07/22 03/07/22 03/07/22 11:01 11:29 11:30 Temperature 98.6 F Pulse Rate 81 Pulse Rate [ Bilateral Throughout] Pulse Rate [ 78 From Monitor] Pulse Rate [ Posterior Bilateral Throughout] Respiratory 16 15 Rate Respiratory Rate [Bilateral Throughout] Respiratory Rate [Posterior Bilateral Throughout] Blood Pressure 127/64 O2 Sat by Pulse 96 97 Oximetry 03/07/22 03/07/22 03/07/22 11:41 11:45 12:00 Temperature Pulse Rate 81 70 Pulse Rate [ 77 Bilateral Throughout] Pulse Rate [ From Monitor] Pulse Rate [ 79 Posterior Bilateral Throughout] Respiratory Rate Respiratory 18 Rate [Bilateral Throughout] Respiratory 15 Rate [Posterior Bilateral Throughout] Blood Pressure 127/64 O2 Sat by Pulse 96 Oximetry 03/07/22 12:01 Temperature Pulse Rate 77 Pulse Rate [ Bilateral Throughout] Pulse Rate [ From Monitor] Pulse Rate [ Posterior Bilateral Throughout] Respiratory 14 Rate Respiratory Rate [Bilateral Throughout] Respiratory Rate [Posterior Bilateral Throughout] Blood Pressure 106/52 O2 Sat by Pulse 100 Oximetry Constitutional: other (on NRB) Eyes: non-icteric ENT: oropharynx moist Neck: supple Effort: normal Ascultation: Bilateral: diminished breath sounds, rhonchi Cardiovascular: regular rate and rhythm Gastrointestinal: normoactive bowel sounds, soft, non-tender (on o2 vest in place) Integumentary: normal Extremities: no cyanosis Neurologic: other (awake) CBC and BMP: 03/06/22 04:17 03/06/22 04:17 ABG, PT/INR, D-dimer: ABG ABG pH 7.411 pH Units (7.350-7.450) 03/02/22 05:18 ABG pCO2 53.2 mm Hg 03/02/22 05:18 ABG pO2 110.5 mm Hg (80.0-90.0) H 03/02/22 05:18 ABG O2 Saturation 97.9 % (95.0-99.0) 03/02/22 05:18 PT/INR, D-dimer PT 16.9 Sec. (12.2-14.9) H 02/18/22 21:02 INR 1.20 (0.87-1.13) H 02/18/22 21:02 Abnormal lab findings: Abnormal Labs 02/18/22 02/18/22 02/18/22 19:34 21:02 21:02 WBC RBC Hgb Hct MCV 101 H MCH 34 H RDW 16.1 H Lymph % (Auto) [place] % (Auto) 12.4 H Lymph # (Auto) [place] # (Auto) 1.2 H Seg Neutrophils % 73.0 H Seg Neuts % (Manual) Lymphocytes % (Manual) Seg Neutrophils # Seg Neutrophils # Man Lymphocytes # (Manual) PT 16.9 H INR 1.20 H ABG pH ABG pO2 ABG HCO3 ABG O2 Saturation ABG Base Excess ABG Hemoglobin Oxyhemoglobin Sodium Potassium Chloride Carbon Dioxide BUN Creatinine Glucose POC Glucose 116 H Calcium Phosphorus AST ALT Ammonia Albumin 02/18/22 02/18/22 02/18/22 21:02 22:45 23:22 WBC RBC Hgb Hct MCV MCH RDW Lymph % (Auto) [place] % (Auto) Lymph # (Auto) [place] # (Auto) Seg Neutrophils % Seg Neuts % (Manual) Lymphocytes % (Manual) Seg Neutrophils # Seg Neutrophils # Man Lymphocytes # (Manual) PT INR ABG pH ABG pO2 55.6 L ABG HCO3 28.4 H ABG O2 Saturation 91.5 L ABG Base Excess 3.8 H ABG Hemoglobin 13.2 L Oxyhemoglobin 89.6 L Sodium Potassium 5.1 H Chloride Carbon Dioxide BUN Creatinine Glucose 102 H POC Glucose Calcium Phosphorus AST 48 H ALT 64 H Ammonia 14.0 L Albumin 2.7 L 02/20/22 02/20/22 02/23/22 04:59 04:59 06:29 WBC 11.4 H RBC Hgb Hct MCV 103 H MCH 33 H RDW 16.5 H Lymph % (Auto) 5.5 L [place] % (Auto) 12.1 H Lymph # (Auto) 0.6 L [place] # (Auto) 1.4 H Seg Neutrophils % 81.4 H Seg Neuts % (Manual) Lymphocytes % (Manual) Seg Neutrophils # 9.2 H Seg Neutrophils # Man Lymphocytes # (Manual) PT INR ABG pH ABG pO2 ABG HCO3 ABG O2 Saturation ABG Base Excess ABG Hemoglobin Oxyhemoglobin Sodium Potassium Chloride Carbon Dioxide BUN Creatinine Glucose POC Glucose 113 H Calcium 8.2 L Phosphorus AST ALT Ammonia Albumin 02/23/22 02/23/22 02/24/22 11:22 16:10 00:02 WBC RBC Hgb Hct MCV MCH RDW Lymph % (Auto) [place] % (Auto) Lymph # (Auto) [place] # (Auto) Seg Neutrophils % Seg Neuts % (Manual) Lymphocytes % (Manual) Seg Neutrophils # Seg Neutrophils # Man Lymphocytes # (Manual) PT INR ABG pH ABG pO2 ABG HCO3 ABG O2 Saturation ABG Base Excess ABG Hemoglobin Oxyhemoglobin Sodium Potassium Chloride Carbon Dioxide BUN Creatinine Glucose POC Glucose 108 H 115 H 109 H Calcium Phosphorus AST ALT Ammonia Albumin 02/24/22 02/24/22 02/24/22 11:05 11:05 13:20 WBC RBC 3.55 L Hgb Hct MCV 100 H MCH 34 H RDW 15.6 H Lymph % (Auto) [place] % (Auto) Lymph # (Auto) [place] # (Auto) Seg Neutrophils % Seg Neuts % (Manual) Lymphocytes % (Manual) Seg Neutrophils # Seg Neutrophils # Man Lymphocytes # (Manual) PT INR ABG pH ABG pO2 ABG HCO3 ABG O2 Saturation ABG Base Excess ABG Hemoglobin Oxyhemoglobin Sodium 146 H Potassium 3.2 L D Chloride 108.4 H Carbon Dioxide BUN Creatinine 0.5 L Glucose POC Glucose 111 H Calcium 7.9 L Phosphorus 2.20 L AST ALT Ammonia Albumin 02/24/22 02/24/22 02/24/22 16:30 17:03 20:25 WBC RBC Hgb Hct MCV MCH RDW Lymph % (Auto) [place] % (Auto) Lymph # (Auto) [place] # (Auto) Seg Neutrophils % Seg Neuts % (Manual) Lymphocytes % (Manual) Seg Neutrophils # Seg Neutrophils # Man Lymphocytes # (Manual) PT INR ABG pH 7.319 L ABG pO2 65.3 L ABG HCO3 31.3 H ABG O2 Saturation 92.2 L ABG Base Excess 3.8 H ABG Hemoglobin 12.0 L Oxyhemoglobin 90.3 L Sodium Potassium Chloride 107.9 H Carbon Dioxide BUN 8 L Creatinine 0.4 L Glucose POC Glucose 108 H Calcium 7.6 L Phosphorus 4.60 H D AST ALT Ammonia Albumin 02/25/22 02/25/22 02/25/22 04:12 04:12 05:05 WBC RBC 3.07 L Hgb 10.2 L Hct 31.5 L MCV 103 H MCH 33 H RDW 15.6 H Lymph % (Auto) [place] % (Auto) Lymph # (Auto) [place] # (Auto) Seg Neutrophils % Seg Neuts % (Manual) Lymphocytes % (Manual) Seg Neutrophils # Seg Neutrophils # Man Lymphocytes # (Manual) PT INR ABG pH ABG pO2 ABG HCO3 32.5 H ABG O2 Saturation ABG Base Excess 5.6 H ABG Hemoglobin 10.8 L Oxyhemoglobin 94.8 L Sodium Potassium 3.5 L Chloride 107.7 H Carbon Dioxide BUN Creatinine 0.5 L Glucose POC Glucose Calcium 7.0 L Phosphorus AST ALT Ammonia Albumin 02/25/22 02/25/22 02/26/22 12:05 18:33 00:07 WBC RBC Hgb Hct MCV MCH RDW Lymph % (Auto) [place] % (Auto) Lymph # (Auto) [place] # (Auto) Seg Neutrophils % Seg Neuts % (Manual) Lymphocytes % (Manual) Seg Neutrophils # Seg Neutrophils # Man Lymphocytes # (Manual) PT INR ABG pH ABG pO2 ABG HCO3 ABG O2 Saturation ABG Base Excess ABG Hemoglobin Oxyhemoglobin Sodium Potassium Chloride Carbon Dioxide BUN Creatinine Glucose POC Glucose 127 H 125 H 114 H Calcium Phosphorus AST ALT Ammonia Albumin 02/26/22 02/26/22 02/26/22 03:30 04:42 11:34 WBC RBC Hgb Hct MCV MCH RDW Lymph % (Auto) [place] % (Auto) Lymph # (Auto) [place] # (Auto) Seg Neutrophils % Seg Neuts % (Manual) Lymphocytes % (Manual) Seg Neutrophils # Seg Neutrophils # Man Lymphocytes # (Manual) PT INR ABG pH ABG pO2 143.2 H ABG HCO3 33.2 H ABG O2 Saturation ABG Base Excess 6.5 H ABG Hemoglobin 9.4 L Oxyhemoglobin Sodium Potassium Chloride Carbon Dioxide 32 H BUN Creatinine 0.7 L Glucose POC Glucose 114 H Calcium 8.0 L Phosphorus AST ALT Ammonia Albumin 02/26/22 02/26/22 02/27/22 18:17 23:37 04:19 WBC 13.7 H RBC 2.78 L Hgb 9.3 L Hct 28.5 L MCV 103 H MCH 33 H RDW 16.3 H Lymph % (Auto) [place] % (Auto) Lymph # (Auto) [place] # (Auto) Seg Neutrophils % Seg Neuts % (Manual) Lymphocytes % (Manual) Seg Neutrophils # Seg Neutrophils # Man Lymphocytes # (Manual) PT INR ABG pH ABG pO2 ABG HCO3 ABG O2 Saturation ABG Base Excess ABG Hemoglobin Oxyhemoglobin Sodium Potassium Chloride Carbon Dioxide BUN Creatinine Glucose POC Glucose 111 H 117 H Calcium Phosphorus AST ALT Ammonia Albumin 02/27/22 02/27/22 02/27/22 04:19 04:35 05:27 WBC RBC Hgb Hct MCV MCH RDW Lymph % (Auto) [place] % (Auto) Lymph # (Auto) [place] # (Auto) Seg Neutrophils % Seg Neuts % (Manual) Lymphocytes % (Manual) Seg Neutrophils # Seg Neutrophils # Man Lymphocytes # (Manual) PT INR ABG pH ABG pO2 96.3 H ABG HCO3 34.9 H ABG O2 Saturation ABG Base Excess 8.1 H ABG Hemoglobin Oxyhemoglobin Sodium Potassium Chloride Carbon Dioxide 31 H BUN Creatinine 0.6 L Glucose 107 H POC Glucose 133 H Calcium 7.8 L Phosphorus AST ALT Ammonia Albumin 02/27/22 02/27/22 02/28/22 11:15 23:35 03:38 WBC 13.3 H RBC 3.05 L Hgb 10.2 L Hct 30.7 L MCV 101 H MCH 33 H RDW 16.1 H Lymph % (Auto) [place] % (Auto) Lymph # (Auto) [place] # (Auto) Seg Neutrophils % Seg Neuts % (Manual) Lymphocytes % (Manual) Seg Neutrophils # Seg Neutrophils # Man Lymphocytes # (Manual) PT INR ABG pH ABG pO2 ABG HCO3 ABG O2 Saturation ABG Base Excess ABG Hemoglobin Oxyhemoglobin Sodium Potassium Chloride Carbon Dioxide BUN Creatinine Glucose POC Glucose 129 H 122 H Calcium Phosphorus AST ALT Ammonia Albumin 02/28/22 02/28/22 02/28/22 04:50 05:30 09:30 WBC RBC Hgb Hct MCV MCH RDW Lymph % (Auto) [place] % (Auto) Lymph # (Auto) [place] # (Auto) Seg Neutrophils % Seg Neuts % (Manual) Lymphocytes % (Manual) Seg Neutrophils # Seg Neutrophils # Man Lymphocytes # (Manual) PT INR ABG pH 7.451 H 7.488 H ABG pO2 77.0 L ABG HCO3 37.1 H 34.6 H ABG O2 Saturation ABG Base Excess 11.5 H 10.1 H ABG Hemoglobin 10.1 L 10.0 L Oxyhemoglobin Sodium Potassium Chloride Carbon Dioxide BUN Creatinine Glucose POC Glucose 121 H Calcium Phosphorus AST ALT Ammonia Albumin 02/28/22 02/28/22 03/01/22 11:36 23:07 04:27 WBC 12.5 H RBC 2.85 L Hgb 9.5 L Hct 28.6 L MCV 101 H MCH 33 H RDW 15.7 H Lymph % (Auto) [place] % (Auto) Lymph # (Auto) [place] # (Auto) Seg Neutrophils % Seg Neuts % (Manual) Lymphocytes % (Manual) Seg Neutrophils # Seg Neutrophils # Man Lymphocytes # (Manual) PT INR ABG pH ABG pO2 ABG HCO3 ABG O2 Saturation ABG Base Excess ABG Hemoglobin Oxyhemoglobin Sodium Potassium Chloride Carbon Dioxide BUN Creatinine Glucose POC Glucose 112 H 107 H Calcium Phosphorus AST ALT Ammonia Albumin 03/01/22 03/01/22 03/01/22 04:27 05:05 11:29 WBC RBC Hgb Hct MCV MCH RDW Lymph % (Auto) [place] % (Auto) Lymph # (Auto) [place] # (Auto) Seg Neutrophils % Seg Neuts % (Manual) Lymphocytes % (Manual) Seg Neutrophils # Seg Neutrophils # Man Lymphocytes # (Manual) PT INR ABG pH ABG pO2 ABG HCO3 ABG O2 Saturation ABG Base Excess ABG Hemoglobin Oxyhemoglobin Sodium 147 H D Potassium Chloride Carbon Dioxide 34 H BUN Creatinine 0.6 L Glucose 128 H POC Glucose 119 H 121 H Calcium 7.9 L Phosphorus AST ALT Ammonia Albumin 03/01/22 03/01/22 03/02/22 16:15 23:57 05:18 WBC RBC Hgb Hct MCV MCH RDW Lymph % (Auto) [place] % (Auto) Lymph # (Auto) [place] # (Auto) Seg Neutrophils % Seg Neuts % (Manual) Lymphocytes % (Manual) Seg Neutrophils # Seg Neutrophils # Man Lymphocytes # (Manual) PT INR ABG pH ABG pO2 110.5 H ABG HCO3 33.0 H ABG O2 Saturation ABG Base Excess 7.4 H ABG Hemoglobin 8.6 L Oxyhemoglobin Sodium Potassium Chloride Carbon Dioxide BUN Creatinine Glucose POC Glucose 134 H 140 H Calcium Phosphorus AST ALT Ammonia Albumin 03/02/22 03/02/22 03/02/22 05:53 09:04 09:04 WBC 15.0 H RBC 3.00 L Hgb 9.7 L Hct 30.7 L MCV 102 H MCH RDW 16.6 H Lymph % (Auto) [place] % (Auto) Lymph # (Auto) [place] # (Auto) Seg Neutrophils % Seg Neuts % (Manual) Lymphocytes % (Manual) Seg Neutrophils # Seg Neutrophils # Man Lymphocytes # (Manual) PT INR ABG pH ABG pO2 ABG HCO3 ABG O2 Saturation ABG Base Excess ABG Hemoglobin Oxyhemoglobin Sodium Potassium Chloride Carbon Dioxide 31 H BUN Creatinine 0.6 L Glucose 157 H POC Glucose 158 H Calcium 7.9 L Phosphorus AST ALT Ammonia Albumin 03/02/22 03/02/22 03/02/22 11:36 16:25 23:17 WBC RBC Hgb Hct MCV MCH RDW Lymph % (Auto) [place] % (Auto) Lymph # (Auto) [place] # (Auto) Seg Neutrophils % Seg Neuts % (Manual) Lymphocytes % (Manual) Seg Neutrophils # Seg Neutrophils # Man Lymphocytes # (Manual) PT INR ABG pH ABG pO2 ABG HCO3 ABG O2 Saturation ABG Base Excess ABG Hemoglobin Oxyhemoglobin Sodium Potassium Chloride Carbon Dioxide BUN Creatinine Glucose POC Glucose 160 H 132 H 157 H Calcium Phosphorus AST ALT Ammonia Albumin 03/03/22 03/03/22 03/03/22 03:54 03:54 05:27 WBC 19.5 H RBC 2.79 L Hgb 9.0 L Hct 28.6 L MCV 102 H MCH RDW 16.2 H Lymph % (Auto) [place] % (Auto) Lymph # (Auto) [place] # (Auto) Seg Neutrophils % Seg Neuts % (Manual) 95.0 H Lymphocytes % (Manual) 3.0 L Seg Neutrophils # Seg Neutrophils # Man 18.5 H Lymphocytes # (Manual) 0.6 L PT INR ABG pH ABG pO2 ABG HCO3 ABG O2 Saturation ABG Base Excess ABG Hemoglobin Oxyhemoglobin Sodium Potassium Chloride Carbon Dioxide BUN Creatinine 0.6 L Glucose 130 H POC Glucose 149 H Calcium 8.1 L Phosphorus AST ALT Ammonia Albumin 03/03/22 03/03/22 03/04/22 11:13 17:30 00:02 WBC RBC Hgb Hct MCV MCH RDW Lymph % (Auto) [place] % (Auto) Lymph # (Auto) [place] # (Auto) Seg Neutrophils % Seg Neuts % (Manual) Lymphocytes % (Manual) Seg Neutrophils # Seg Neutrophils # Man Lymphocytes # (Manual) PT INR ABG pH ABG pO2 ABG HCO3 ABG O2 Saturation ABG Base Excess ABG Hemoglobin Oxyhemoglobin Sodium Potassium Chloride Carbon Dioxide BUN Creatinine Glucose POC Glucose 139 H 138 H 157 H Calcium Phosphorus AST ALT Ammonia Albumin 03/04/22 03/04/22 03/04/22 05:32 05:32 05:48 WBC 16.1 H RBC 2.81 L Hgb 9.3 L Hct 28.8 L MCV 102 H MCH 33 H RDW 16.7 H Lymph % (Auto) [place] % (Auto) Lymph # (Auto) [place] # (Auto) Seg Neutrophils % Seg Neuts % (Manual) Lymphocytes % (Manual) Seg Neutrophils # Seg Neutrophils # Man Lymphocytes # (Manual) PT INR ABG pH ABG pO2 ABG HCO3 ABG O2 Saturation ABG Base Excess ABG Hemoglobin Oxyhemoglobin Sodium Potassium Chloride Carbon Dioxide BUN Creatinine 0.7 L Glucose 135 H POC Glucose 145 H Calcium 8.3 L Phosphorus AST ALT Ammonia Albumin 03/04/22 03/04/22 03/05/22 11:34 16:29 00:28 WBC RBC Hgb Hct MCV MCH RDW Lymph % (Auto) [place] % (Auto) Lymph # (Auto) [place] # (Auto) Seg Neutrophils % Seg Neuts % (Manual) Lymphocytes % (Manual) Seg Neutrophils # Seg Neutrophils # Man Lymphocytes # (Manual) PT INR ABG pH ABG pO2 ABG HCO3 ABG O2 Saturation ABG Base Excess ABG Hemoglobin Oxyhemoglobin Sodium Potassium Chloride Carbon Dioxide BUN Creatinine Glucose POC Glucose 148 H 140 H 116 H Calcium Phosphorus AST ALT Ammonia Albumin 03/05/22 03/05/22 03/05/22 06:29 11:30 17:38 WBC RBC Hgb Hct MCV MCH RDW Lymph % (Auto) [place] % (Auto) Lymph # (Auto) [place] # (Auto) Seg Neutrophils % Seg Neuts % (Manual) Lymphocytes % (Manual) Seg Neutrophils # Seg Neutrophils # Man Lymphocytes # (Manual) PT INR ABG pH ABG pO2 ABG HCO3 ABG O2 Saturation ABG Base Excess ABG Hemoglobin Oxyhemoglobin Sodium Potassium Chloride Carbon Dioxide BUN Creatinine Glucose POC Glucose 114 H 114 H 117 H Calcium Phosphorus AST ALT Ammonia Albumin 03/06/22 03/06/22 03/06/22 04:17 04:17 06:06 WBC 13.4 H RBC 2.85 L Hgb 9.4 L Hct 29.0 L MCV 102 H MCH 33 H RDW 16.4 H Lymph % (Auto) [place] % (Auto) Lymph # (Auto) [place] # (Auto) Seg Neutrophils % Seg Neuts % (Manual) Lymphocytes % (Manual) Seg Neutrophils # Seg Neutrophils # Man Lymphocytes # (Manual) PT INR ABG pH ABG pO2 ABG HCO3 ABG O2 Saturation ABG Base Excess ABG Hemoglobin Oxyhemoglobin Sodium Potassium 3.5 L Chloride Carbon Dioxide 31 H BUN Creatinine 0.6 L Glucose 101 H POC Glucose 106 H Calcium 7.7 L Phosphorus 2.00 L AST ALT Ammonia Albumin 03/06/22 03/06/22 03/07/22 18:04 23:50 05:14 WBC RBC Hgb Hct MCV MCH RDW Lymph % (Auto) [place] % (Auto) Lymph # (Auto) [place] # (Auto) Seg Neutrophils % Seg Neuts % (Manual) Lymphocytes % (Manual) Seg Neutrophils # Seg Neutrophils # Man Lymphocytes # (Manual) PT INR ABG pH ABG pO2 ABG HCO3 ABG O2 Saturation ABG Base Excess ABG Hemoglobin Oxyhemoglobin Sodium Potassium Chloride Carbon Dioxide BUN Creatinine Glucose POC Glucose 108 H 115 H 116 H Calcium Phosphorus AST ALT Ammonia Albumin
--- NOTE | 2022-03-07 16:16 | XRay Report ---
CHEST 1 VIEW 03/07/2022 3:06 PM INDICATION / CLINICAL INFORMATION: Shortness of breath. COMPARISON: 03/03/22. FINDINGS: SUPPORT DEVICES: The positions of the endotracheal tube and nasogastric tube have not changed. HEART / MEDIASTINUM: Unchanged. LUNGS / PLEURA: Pleuroparenchymal opacity in the right mid to lower hemithorax has shown mild increas e. Milder pleuroparenchymal disease in the left lower hemithorax has improved. No pneumothorax. ADDITIONAL FINDINGS: No significant additional findings. IMPRESSION: Pleuroparenchymal disease in the right mid to lower hemithorax has increased. Signer Name: Amish Vora MD Signed: 03/07/2022 4:11 PM Workstation Name: [id number]
[2022-03-07] MEDS: PRAVASTATIN 40 MG TAB FEEDTUBE SCH (22:28)
[2022-03-08] MEDS: ALBUTEROL 2.5 MG/3 ML NEBU IH SCH ×5 (03:55→20:32)
[2022-03-08 05:08] LABS: Hematocrit 29.3 % (35.5-45.6); Hemoglobin 9.2 gm/dl (11.8-15.2); Mean Corpuscular HGB Conc 31 % (32-34); Mean Corpuscular Volume 103 fl (84-94); Platelet Count 308 K/mm3 (140-440); Red Blood Count 2.86 M/mm3 (3.65-5.03); Red Cell Distribution Width 16.9 % (13.2-15.2)
[2022-03-08 05:29] LABS: Blood Urea Nitrogen 16 mg/dL (9-20); Calcium 7.6 mg/dL (8.4-10.2); Hemolysis Index 5
[2022-03-08 05:47] LABS: BUN/Creatinine Ratio 32
[2022-03-08] MEDS: HEPARIN 5,000 UNIT/1 ML VIAL SUB-Q SCH ×3 (06:35→21:20)
[2022-03-08] MEDS: LEVOTHYROXINE 25 MCG TAB FEEDTUBE SCH (06:35)
[2022-03-08] MEDS: FAMOTIDINE 20 MG TAB FEEDTUBE SCH ×2 (09:34→21:20)
[2022-03-08] MEDS: SENNOSIDES/DOCUSATE SODIUM 8.6/50 MG TAB FEEDTUBE SCH (09:34)
[2022-03-08] MEDS: levETIRAcetam 500 MG/5 ML ORAL LIQD FEEDTUBE SCH ×2 (09:34→21:20)
--- NOTE | 2022-03-08 11:16 | Progress Note ---
<KEATON GOLD - Last Filed: 03/08/22 16:27> Assessment and Plan Assessment and plan: This is a 51-year-old male with HTN, seizure disorder, Down syndrome, HLD, partial blindness admitted with aspiration pneumonia, probable bronchogenic carcinoma, acute hypoxic respiratory failure and acute encephalopathy Hospital course to date: 02/19/2022. Consult pulmonary for further evaluation and possible bronchoscopy. I suspect patient has component of aspiration pneumonia as well. We will obtain a speech therapy evaluation for swallowing and start empiric antibiotics. Continue O2 supplementation to maintain sats greater than 92%. 02/20/2022. Pulmonary feels that the abnormality seen on CT scan is highly unlikely for a mass given negative chest x-ray 1 month ago and no risk factors. Etiology is likely secondary to aspiration from possibly a foreign body most likely food with atelectasis of the right lower lobe. Bronchoscopy is needed in the case to evaluate to see if lung mass is there vs foreign body, but at this time not able to do because no identifiable person that is able to give consent. Continue aspiration precautions and continue speech therapy evaluation for swallowing. Keep n.p.o. for now 02/21/2022. Patient remains NPO. Consider DHT placement. Follow-up with speech therapy evaluation. Pulmonology to consider bronchoscopy if able to obtain consent. Continue IV antibiotics for aspiration pneumonia 02/22/2022. Patient remains NPO. Consider DHT placement. Follow-up with speech therapy evaluation. Pulmonology to consider bronchoscopy if able to obtain consent. Continue IV antibiotics for aspiration pneumonia 02/23/2022. DHT placed yesterday. TF initiated for nutritional support. Patient currently with strict NPO. Aspiration precautions. Pulmonology to consider bronchoscopy if able to obtain consent. Continue IV antibiotics for aspiration pneumonia 02/24: Patient was transferred to the ICU for further monitoring. This morning patient remained on high flow nasal cannula on 40 L/100% and despite repeated nasotracheal suctioning patient SPO2 remained in the 80s. Patient was placed on nonrebreather and SPO2 increased to upper 80s. Patient was subsequently intubated by anesthesia. Started on sedation. 02/25: Patient remains sedated on fentanyl, potassium and magnesium repleted. IV fluids and amlodipine discontinued. Possible bronchoscopy tomorrow. 02/26: Patient had a bronchoscopy today which showed mucus and no endobronchial lesions or masses. FiO2 was increased to 100 during and postprocedure weaning as tolerated. Repeat CXR is much improved after bronc. Given 1 L LR bolus due to hypotension. No acute events reported overnight. 02/27: Decreased PEEP, will repeat CT of chest. no acute changes overnight. 02/28: Patient was extubated today however had to be be intubated shortly after. Patient ETT looked mispositioned on x-ray and Dr. Alonzo did do a bedside bronc. Patient was briefly hypotensive and on Levophed postintubation however Levophed was quickly titrated off and patient did not require central line. No acute events reported overnight. Will obtain CT neck d/t difficulty intubating. Ethi committee consulted. 03/04: Overnight patient was hypotensive and started on IVF. Patient started on steroids as no air leak noted and hypotension and given 2 L LR 03/05: Overnight patient received bolus per RN report, no orders seen. Continue supportive care 03/03: SB on the monitor, HR as low as 37, VSS. Will continue to monitor for now. Awaiting on desicion from [facility] for possible trach and PEG. Continue daily air leak per [facility] 03/04: MAIDA overnight. Remains stable on the vent. Awaiting on desicion from [facility] for possible trach and PEG. Continue current supportive measures 03/05: MAIDA overnight. Awaiting on desicion from [facility] for possible trach and PEG. Midodrine held yesterday, HR improved. Continue current supportive measures. Daily PSV trial as tolerated per [facility] 03/06: Remains stable on the vent. Continue current supportive measures, daily PSV trial per [facility]. Awaiting on desicion for possible trach and PEG. 03/07: MAIDA overnight, remains stable. Continue daily PSV trial as tolerated. Awaiting on desicion for possible trach and PEG. 03/08: Patient failed PSV trial this am due to tachycardia and increase RR. Continue supportive measures and daily PSV trial as tolerated. Possible discussion with ethics and [facility] on Thursday in regards to medical necessity, may need to consider two physician consent if no one is able to claim responsibility for this patient. Neuro: Acute encephalopathy, h/o seizure disorder, Down syndrome, partial blindness -Patient currently sedated with propofol -RASS goal 0 to -1 -Reorientation as needed -Maintain sleep-wake cycle -aspiration/seizure precautions -As needed analgesia -CT head showed no acute abnormality -Continue Keppra Cardiac: Hypotension, h/o HTN, HLD -Cardiology consulted, appreciate recommendations -Blood pressure monitoring per protocol -d/c amlodipine -Midodrine TID- held due to bradycardia. BP stable Respiratory: Acute hypoxic respiratory failure, r/o bronchogenic carcinoma -CCM consulted, appreciate recommendations -Intubated on 02/24 with a 8.0 at 23 at the lips but extubated 02/28 -reintubated 02/28 with 8.0 OETT -Vent settings: AC rate 14, TV 360, PEEP 6, FO2 30% -See RT notes for titration -VAP bundle -SPO2 monitoring -02/18 CTA chest showed no evidence of pulmonary embolism, suspected bronchogenic carcinoma with associated obstruction of the right lower lobe proximal bronchus segment, 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 adenopathy and suspected to left lower lobe metastatic nodule -02/26 Bronch->mucous, no lesion noted -02/27 CT chest showed right mainstem bronchus patent with small amount of interval bronchial fluid which may be mucus (this may account for the appearance of the prior CTA chest fluid-filled airway rather than entering bronchial lesion), previously seen complete left lower lobe since related to bronchial occlusion has significantly improved, there is persistent compressive atelectasis in the right lower lung secondary to the pleural effusion, bilateral pleural effusions, right lung pneumonia -CT neck showed no acute changes - IV Steroids stopped GI: Moderate protein calorie malnutrition -PPI -NTR consulted for tube feedings -BR: Senokot S : Hypernatremia (resolved) -FWF 200 ml q4 hr -Monitor intake and output -Renally dose medications -Avoid nephrotoxic medications -Trend BMP ID: Aspiration PNA -S/p Rocephin for 5 days (02/19-02/24) -Monitor WBC and temperature curve Endo: NAD -Avoid hypoglycemia -Accu-Cheks every 6 -Avoid hypoglycemia Heme: NAD -Trend CBC -Transfuse hemoglobin less than 7 -SCDs to BLE while in bed The high probability of a clinically significant, sudden or life threatening deterioration of the [resp] system(s) required my full and direct attention, intervention and personal management. The aggregate critical care time was [60] minutes. This time is in addition to time spent performing reported procedures but includes the following: [x] Data Review and interpretation [x] Patient assessment and monitoring of vital signs [x] Documentation [x] Medication orders and management Disposition Plan: ICU Total Time Spent with Patient (Minutes): 60 History Interval history: Patient seen and examined at the bedside. Remains stable on low vent setting, not on any sedation. Open eyes spontaneously and move extremities but does not follow any commands. SR on the monitor this am, VSS. Patient failed PSV trial this am due to tachypnea and increased RR. MAIDA overnight Hospitalist Physical - Physical exam Narrative exam: General appearance: Present: no acute distress, well-nourished, obese - EENT Eyes: Present: PERRL - Neck Neck: Present: normal ROM - Respiratory Respiratory effort: normal Respiratory: bilateral: rhonchi - Cardiovascular Rhythm: regular Heart Sounds: Present: S1 & S2 - Extremities Extremities: no ischemia, pulses intact, pulses symmetrical Extremity abnormal: edema - Peripheral Assessment Generalized Edema Type: Non-pitting Edema Degree: 1+ Capillary Refill: < 3 seconds Skin Temperature: Warm Peripheral Pulses: within normal limits - Abdominal General gastrointestinal: soft, non-distended, normal bowel sounds - Integumentary Integumentary: Present: warm, dry - Psychiatric Psychiatric: other (Intubated, unresponsive. Not on any sedations) - Neurologic Neurologic: moves all extremities, other (Intubated, unresponsive. Not on any sedations) - Allied Health Allied health notes reviewed: nursing, case management - Constitutional Vitals: Temp Pulse Resp BP Pulse Ox 98.4 F 105 H 22 145/81 94 03/08/22 08:00 03/08/22 10:00 03/08/22 10:00 03/08/22 10:00 03/08/22 10:00 HEART Score - HEART Score Troponin: Troponin T < 0.010 ng/mL (0.00-0.029) 02/18/22 21:02 Results - Labs CBC & Chem 7: 03/08/22 04:34 03/08/22 04:34 Labs: Laboratory Last Values WBC 9.7 K/mm3 (4.5-11.0) 03/08/22 04:34 RBC 2.86 M/mm3 (3.65-5.03) L 03/08/22 04:34 Hgb 9.2 gm/dl (11.8-15.2) L 03/08/22 04:34 Hct 29.3 % (35.5-45.6) L 03/08/22 04:34 MCV 103 fl (84-94) H 03/08/22 04:34 MCH 32 pg (28-32) 03/08/22 04:34 MCHC 31 % (32-34) L 03/08/22 04:34 RDW 16.9 % (13.2-15.2) H 03/08/22 04:34 Plt Count 308 K/mm3 (140-440) 03/08/22 04:34 Lymph % (Auto) 5.5 % (13.4-35.0) L 02/20/22 04:59 Dickens % (Auto) 12.1 % (0.0-7.3) H 02/20/22 04:59 Eos % (Auto) 0.2 % (0.0-4.3) 02/20/22 04:59 Baso % (Auto) 0.8 % (0.0-1.8) 02/20/22 04:59 Lymph # (Auto) 0.6 K/mm3 (1.2-5.4) L 02/20/22 04:59 Dickens # (Auto) 1.4 K/mm3 (0.0-0.8) H 02/20/22 04:59 Eos # (Auto) 0.0 K/mm3 (0.0-0.4) 02/20/22 04:59 Baso # (Auto) 0.1 K/mm3 (0.0-0.1) 02/20/22 04:59 Add Manual Diff Complete 03/03/22 03:54 Total Counted 100 03/03/22 03:54 Seg Neutrophils % 81.4 % (40.0-70.0) H 02/20/22 04:59 Seg Neuts % (Manual) 95.0 % (40.0-70.0) H 03/03/22 03:54 Band Neutrophils % 0 % 03/03/22 03:54 Lymphocytes % (Manual) 3.0 % (13.4-35.0) L 03/03/22 03:54 Reactive Lymphs % (Man) 0 % 03/03/22 03:54 Monocytes % (Manual) 2.0 % (0.0-7.3) 03/03/22 03:54 Eosinophils % (Manual) 0 % (0.0-4.3) 03/03/22 03:54 Basophils % (Manual) 0 % (0.0-1.8) 03/03/22 03:54 Metamyelocytes % 0 % 03/03/22 03:54 Myelocytes % 0 % 03/03/22 03:54 Promyelocytes % 0 % 03/03/22 03:54 Blast Cells % 0 % 03/03/22 03:54 Nucleated RBC % Not Reportable 03/03/22 03:54 Seg Neutrophils # 9.2 K/mm3 (1.8-7.7) H 02/20/22 04:59 Seg Neutrophils # Man 18.5 K/mm3 (1.8-7.7) H 03/03/22 03:54 Band Neutrophils # 0.0 K/mm3 03/03/22 03:54 Lymphocytes # (Manual) 0.6 K/mm3 (1.2-5.4) L 03/03/22 03:54 Abs React Lymphs (Man) 0.0 K/mm3 03/03/22 03:54 Monocytes # (Manual) 0.4 K/mm3 (0.0-0.8) 03/03/22 03:54 Eosinophils # (Manual) 0.0 K/mm3 (0.0-0.4) 03/03/22 03:54 Basophils # (Manual) 0.0 K/mm3 (0.0-0.1) 03/03/22 03:54 Metamyelocytes # 0.0 K/mm3 03/03/22 03:54 Myelocytes # 0.0 K/mm3 03/03/22 03:54 Promyelocytes # 0.0 K/mm3 03/03/22 03:54 Blast Cells # 0.0 K/mm3 03/03/22 03:54 WBC Morphology Not Reportable 03/03/22 03:54 Hypersegmented Neuts Not Reportable 03/03/22 03:54 Hyposegmented Neuts Not Reportable 03/03/22 03:54 Hypogranular Neuts Not Reportable 03/03/22 03:54 Smudge Cells Not Reportable 03/03/22 03:54 Toxic Granulation Not Reportable 03/03/22 03:54 Toxic Vacuolation Not Reportable 03/03/22 03:54 Dohle Bodies Not Reportable 03/03/22 03:54 Pelger-Huet Anomaly Not Reportable 03/03/22 03:54 Lakshmi Rods Not Reportable 03/03/22 03:54 Platelet Estimate Consistent w auto 03/03/22 03:54 Clumped Platelets Not Reportable 03/03/22 03:54 Plt Clumps, EDTA Not Reportable 03/03/22 03:54 Large Platelets Not Reportable 03/03/22 03:54 Giant Platelets Not Reportable 03/03/22 03:54 Platelet Satelliting Not Reportable 03/03/22 03:54 Plt Morphology Comment Not Reportable 03/03/22 03:54 RBC Morphology Not Reportable 03/03/22 03:54 Dimorphic RBCs Not Reportable 03/03/22 03:54 Polychromasia Not Reportable 03/03/22 03:54 Hypochromasia Not Reportable 03/03/22 03:54 Poikilocytosis Not Reportable 03/03/22 03:54 Anisocytosis 1+ 03/03/22 03:54 Microcytosis Not Reportable 03/03/22 03:54 Macrocytosis Not Reportable 03/03/22 03:54 Spherocytes Not Reportable 03/03/22 03:54 Pappenheimer Bodies Not Reportable 03/03/22 03:54 Sickle Cells Not Reportable 03/03/22 03:54 Target Cells Not Reportable 03/03/22 03:54 Tear Drop Cells Not Reportable 03/03/22 03:54 Ovalocytes Not Reportable 03/03/22 03:54 Helmet Cells Not Reportable 03/03/22 03:54 [place] Bodies Not Reportable 03/03/22 03:54 [place] Rings Not Reportable 03/03/22 03:54 Maury Cells Not Reportable 03/03/22 03:54 Bite Cells Not Reportable 03/03/22 03:54 Crenated Cell Not Reportable 03/03/22 03:54 Elliptocytes Not Reportable 03/03/22 03:54 Acanthocytes (Spur) Not Reportable 03/03/22 03:54 Rouleaux Not Reportable 03/03/22 03:54 Hemoglobin C Crystals Not Reportable 03/03/22 03:54 Schistocytes Not Reportable 03/03/22 03:54 Malaria parasites Not Reportable 03/03/22 03:54 Cash Bodies Not Reportable 03/03/22 03:54 Hem Pathologist Commnt No 03/03/22 03:54 PT 16.9 Sec. (12.2-14.9) H 02/18/22 21:02 INR 1.20 (0.87-1.13) H 02/18/22 21:02 ABG pH 7.411 pH Units (7.350-7.450) 03/02/22 05:18 ABG pCO2 53.2 mm Hg 03/02/22 05:18 ABG pO2 110.5 mm Hg (80.0-90.0) H 03/02/22 05:18 ABG HCO3 33.0 mmol/L (20.0-26.0) H 03/02/22 05:18 ABG O2 Saturation 97.9 % (95.0-99.0) 03/02/22 05:18 ABG O2 Content 11.8 (0.0-44) 03/02/22 05:18 ABG Base Excess 7.4 mmol/L (-2.0-3.0) H 03/02/22 05:18 ABG Hemoglobin 8.6 gm/dl (14.0-18.0) L 03/02/22 05:18 ABG Carboxyhemoglobin 1.4 % (0.0-5.0) 03/02/22 05:18 ABG Methemoglobin 0.6 % (0.0-1.5) 03/02/22 05:18 Oxyhemoglobin 96.0 % (95.0-99.0) 03/02/22 05:18 FiO2 40 % 03/02/22 05:18 Sodium 144 mmol/L (137-145) 03/08/22 04:34 Potassium 4.0 mmol/L (3.6-5.0) 03/08/22 04:34 Chloride 106.1 mmol/L (98-107) 03/08/22 04:34 Carbon Dioxide 33 mmol/L (22-30) H 03/08/22 04:34 Anion Gap 9 mmol/L 03/08/22 04:34 BUN 16 mg/dL (9-20) 03/08/22 04:34 Creatinine 0.5 mg/dL (0.8-1.3) L 03/08/22 04:34 Estimated GFR > 60 ml/min 03/08/22 04:34 BUN/Creatinine Ratio 32 % 03/08/22 04:34 Glucose 109 mg/dL (75-100) H 03/08/22 04:34 POC Glucose 105 mg/dL (70-105) 03/08/22 04:49 Lactic Acid 1.20 mmol/L (0.7-2.0) 02/18/22 21:02 Calcium 7.6 mg/dL (8.4-10.2) L 03/08/22 04:34 Phosphorus 2.00 mg/dL (2.5-4.5) L 03/06/22 04:17 Magnesium 1.90 mg/dL (1.7-2.3) 03/06/22 04:17 Total Bilirubin 0.50 mg/dL (0.1-1.2) 02/18/22 21:02 AST 48 units/L (5-40) H 02/18/22 21:02 ALT 64 units/L (7-56) H 02/18/22 21:02 Alkaline Phosphatase 88 units/L (35-129) 02/18/22 21:02 Ammonia 14.0 umol/L (25-60) L 02/18/22 23:22 Troponin T < 0.010 ng/mL (0.00-0.029) 02/18/22 21:02 Total Protein 7.2 g/dL (6.3-8.2) 02/18/22 21:02 Albumin 2.7 g/dL (3.9-5) L 02/18/22 21:02 Albumin/Globulin Ratio 0.6 % 02/18/22 21:02 Urine Color Dark yellow (Yellow) 02/18/22 Unknown Urine Turbidity Clear (Clear) 02/18/22 Unknown Urine pH 7.0 (5.0-7.0) 02/18/22 Unknown Ur Specific [place] 1.015 (1.003-1.030) 02/18/22 Unknown Urine Protein <15 mg/dl mg/dL (Negative) 02/18/22 Unknown Urine Glucose (UA) Negative mg/dL (Negative) 02/18/22 Unknown Urine Ketones Negative mg/dL (Negative) 02/18/22 Unknown Urine Blood Trace (Negative) 02/18/22 Unknown Urine Nitrite Negative (Negative) 02/18/22 Unknown Urine Bilirubin Negative (Negative) 02/18/22 Unknown Urine Urobilinogen < 2.0 mg/dL (<2.0) 02/18/22 Unknown Ur Leukocyte Esterase Negative (Negative) 02/18/22 Unknown Urine WBC (Auto) 2.0 /HPF (0.0-6.0) 02/18/22 Unknown Urine RBC (Auto) 9.0 /HPF (0.0-6.0) 02/18/22 Unknown Urine Mucus Few /HPF 02/18/22 Unknown Urine Opiates Screen Negative 02/18/22 Unknown Urine Methadone Screen Negative 02/18/22 Unknown Ur Barbiturates Screen Negative 02/18/22 Unknown Ur Phencyclidine Scrn Negative 02/18/22 Unknown Ur Amphetamines Screen Negative 02/18/22 Unknown U Benzodiazepines Scrn Negative 02/18/22 Unknown Urine Cocaine Screen Negative 02/18/22 Unknown U Marijuana (THC) Screen Negative 02/18/22 Unknown Drugs of Abuse Note Disclamer 02/18/22 Unknown Plasma/Serum Alcohol < 0.01 % (0-0.07) 02/18/22 21:02 Horowitz/IV: Voiding Method Indwelling Catheter Active Medications - Current Medications Current Medications: Generic Name Dose Route Start Last Admin Trade Name Freq PRN Reason Stop Dose Admin Acetaminophen 650 mg 03/03/22 09:00 Acetaminophen 325 Mg/10.15 Ml Oral Liqd Unit Dose FEEDTUBE Q4H PRN Pain, Mild (1-3); TEMP > 100.4 Albuterol 2.5 mg 02/23/22 16:00 03/08/22 08:14 Albuterol 2.5 Mg/3 Ml Nebu IH 2.5 mg Q4HRT LAZARUS Administration Famotidine 20 mg 02/25/22 10:00 03/08/22 09:34 Famotidine 20 Mg Tab FEEDTUBE 20 mg BID LAZARUS Administration Heparin Sodium (Porcine) 5,000 unit 02/19/22 06:00 03/08/22 06:35 Heparin 5,000 Unit/1 Ml Vial SUB-Q 5,000 unit Q8HR LAZARUS Administration Hydrophilic Ointment 1 applic 02/24/22 15:05 Lip Therapy Vaseline TP Q2HR PRN Dry Lips Levetiracetam 500 mg 02/25/22 22:00 03/08/22 09:34 Levetiracetam 500 Mg/5 Ml Oral Liqd FEEDTUBE 500 mg BID LAZARUS Administration Levothyroxine Sodium 25 mcg 02/26/22 06:00 03/08/22 06:35 Levothyroxine 25 Mcg Tab FEEDTUBE 25 mcg QAM@0600 LAZARUS Administration Magnesium Hydroxide 30 ml 02/19/22 02:02 Magnesium Hydroxide (Mom) Oral Liqd Udc PO Q4H PRN Constipation Morphine Sulfate 2 mg 02/19/22 02:02 Morphine 2 Mg/1 Ml Inj IV Q4H PRN Pain, Moderate (4-6) Morphine Sulfate 4 mg 02/19/22 02:02 Morphine 4 Mg/1 Ml Inj IV Q4H PRN Pain , Severe (7-10) Multi-Ingred Cream/Lotion/Oil/Oint 1 applic 02/24/22 15:05 Mineral Oil/Petrolatum, White Ophth Oint 3.5 Gm OU Q4HR PRN Dry Eye(s) Ondansetron HCl 4 mg 02/19/22 02:02 Ondansetron 4 Mg/2 Ml Inj IV Q8H PRN Nausea And Vomiting Pravastatin Sodium 40 mg 02/25/22 22:00 03/07/22 22:28 Pravastatin 40 Mg Tab FEEDTUBE 40 mg QHS LAZARUS Administration Senna/Docusate Sodium 1 tab 02/24/22 22:00 03/08/22 09:34 Sennosides/Docusate Sodium 8.6/50 Mg Tab FEEDTUBE 1 tab BID LAZARUS Administration Sodium Chloride 10 ml 02/19/22 10:00 03/08/22 09:35 Sodium Chloride 0.9% 10 Ml Flush Syringe IV 10 ml BID LAZARUS Administration Sodium Chloride 10 ml 02/19/22 02:02 03/03/22 14:21 Sodium Chloride 0.9% 10 Ml Flush Syringe IV 10 ml PRN PRN Administration LINE FLUSH Nutrition/Malnutrition Assess - Dietary Evaluation Nutrition/Malnutrition Findings: Nutrition Notes Start: 02/19/22 14:29 Freq: Status: Active Protocol: Document 03/07/22 14:34 IVAN (Rec: 03/07/22 14:44 IVAN [id number]) Nutrition Notes Initial or Follow up Reassessment Current Diagnosis Hypertension,Respiratory Failure,Hyperlipidemia Other Pertinent Diagnosis Asp pneu, acute encephalopathy , seizure d/o, partial blindness Current Diet TF - Vital AF 1.2 at 50ml/hr Labs/Tests Reviewed Pertinent Medications Reviewed Height 5 ft 3 in Weight 63.2 kg [place] Body Weight (kg) 56.36 BMI 24.7 Weight change and time frame Unable to obtain current wt; bed scale not working - RN aware Weight Status Appropriate Subjective/Other Information Observed TF infusing at goal rate. Pt tolerating TF and remains on vent support. Pt been intubated since 02/24/22 via ETT. Trach/PEG placement pending. Percent of energy/protein needs met: 90% energy 100% pro Burn Absent Trauma Absent #1 Nutrition Diagnosis Inadequate oral intake Diagnosis Progress(for reassessment Continues documentation) Is patient on ventilator? Yes Is Patient Ambulatory and/or Out of Bed No REE-([facility]-confined to bed) [phone] Calculation Used for Recommendations [facility] Additional Notes Pro needs 1.2-2g/k-126g/ day Fluid needs 1ml/kcal Nutrition Intervention Nutrition Support: Continue Vital AF 1.2 at 50ml/ hr with 75ml water flush q4h. Kcal 1,440 Protein (gm) 90 Carbohydrates (gm) 133 Fat (gm) 65 Fluid (mL) 973 Fiber (gm) 6 Goal #1 TF tolerance Goal #2 TF to meet at least 75% energy and pro needs Follow-Up By: 03/14/22 Additional Comments F/U: stable TF, trach/PEG placement, vent status, wt <JOAQUIN ROBIN - Last Filed: 03/09/22 07:22> Assessment and Plan Assessment and plan: I saw and evaluated the patient. I agree with the findings and the plan of care as documented in the Nurse Practitioner's~note, with the following corrections and additions. Hospitalist Physical - Constitutional Vitals: Temp Pulse Resp BP Pulse Ox 98.0 F 62 14 132/63 96 03/09/22 07:09 03/09/22 06:00 03/09/22 06:00 03/09/22 06:00 03/09/22 06:00 HEART Score - HEART Score Troponin: Troponin T < 0.010 ng/mL (0.00-0.029) 02/18/22 21:02 Results - Labs CBC & Chem 7: 03/08/22 04:34 03/08/22 04:34 Labs: Laboratory Last Values WBC 9.7 K/mm3 (4.5-11.0) 03/08/22 04:34 RBC 2.86 M/mm3 (3.65-5.03) L 03/08/22 04:34 Hgb 9.2 gm/dl (11.8-15.2) L 03/08/22 04:34 Hct 29.3 % (35.5-45.6) L 03/08/22 04:34 MCV 103 fl (84-94) H 03/08/22 04:34 MCH 32 pg (28-32) 03/08/22 04:34 MCHC 31 % (32-34) L 03/08/22 04:34 RDW 16.9 % (13.2-15.2) H 03/08/22 04:34 Plt Count 308 K/mm3 (140-440) 03/08/22 04:34 Lymph % (Auto) 5.5 % (13.4-35.0) L 02/20/22 04:59 Dickens % (Auto) 12.1 % (0.0-7.3) H 02/20/22 04:59 Eos % (Auto) 0.2 % (0.0-4.3) 02/20/22 04:59 Baso % (Auto) 0.8 % (0.0-1.8) 02/20/22 04:59 Lymph # (Auto) 0.6 K/mm3 (1.2-5.4) L 02/20/22 04:59 Dickens # (Auto) 1.4 K/mm3 (0.0-0.8) H 02/20/22 04:59 Eos # (Auto) 0.0 K/mm3 (0.0-0.4) 02/20/22 04:59 Baso # (Auto) 0.1 K/mm3 (0.0-0.1) 02/20/22 04:59 Add Manual Diff Complete 03/03/22 03:54 Total Counted 100 03/03/22 03:54 Seg Neutrophils % 81.4 % (40.0-70.0) H 02/20/22 04:59 Seg Neuts % (Manual) 95.0 % (40.0-70.0) H 03/03/22 03:54 Band Neutrophils % 0 % 03/03/22 03:54 Lymphocytes % (Manual) 3.0 % (13.4-35.0) L 03/03/22 03:54 Reactive Lymphs % (Man) 0 % 03/03/22 03:54 Monocytes % (Manual) 2.0 % (0.0-7.3) 03/03/22 03:54 Eosinophils % (Manual) 0 % (0.0-4.3) 03/03/22 03:54 Basophils % (Manual) 0 % (0.0-1.8) 03/03/22 03:54 Metamyelocytes % 0 % 03/03/22 03:54 Myelocytes % 0 % 03/03/22 03:54 Promyelocytes % 0 % 03/03/22 03:54 Blast Cells % 0 % 03/03/22 03:54 Nucleated RBC % Not Reportable 03/03/22 03:54 Seg Neutrophils # 9.2 K/mm3 (1.8-7.7) H 02/20/22 04:59 Seg Neutrophils # Man 18.5 K/mm3 (1.8-7.7) H 03/03/22 03:54 Band Neutrophils # 0.0 K/mm3 03/03/22 03:54 Lymphocytes # (Manual) 0.6 K/mm3 (1.2-5.4) L 03/03/22 03:54 Abs React Lymphs (Man) 0.0 K/mm3 03/03/22 03:54 Monocytes # (Manual) 0.4 K/mm3 (0.0-0.8) 03/03/22 03:54 Eosinophils # (Manual) 0.0 K/mm3 (0.0-0.4) 03/03/22 03:54 Basophils # (Manual) 0.0 K/mm3 (0.0-0.1) 03/03/22 03:54 Metamyelocytes # 0.0 K/mm3 03/03/22 03:54 Myelocytes # 0.0 K/mm3 03/03/22 03:54 Promyelocytes # 0.0 K/mm3 03/03/22 03:54 Blast Cells # 0.0 K/mm3 03/03/22 03:54 WBC Morphology Not Reportable 03/03/22 03:54 Hypersegmented Neuts Not Reportable 03/03/22 03:54 Hyposegmented Neuts Not Reportable 03/03/22 03:54 Hypogranular Neuts Not Reportable 03/03/22 03:54 Smudge Cells Not Reportable 03/03/22 03:54 Toxic Granulation Not Reportable 03/03/22 03:54 Toxic Vacuolation Not Reportable 03/03/22 03:54 Dohle Bodies Not Reportable 03/03/22 03:54 Pelger-Huet Anomaly Not Reportable 03/03/22 03:54 Lakshmi Rods Not Reportable 03/03/22 03:54 Platelet Estimate Consistent w auto 03/03/22 03:54 Clumped Platelets Not Reportable 03/03/22 03:54 Plt Clumps, EDTA Not Reportable 03/03/22 03:54 Large Platelets Not Reportable 03/03/22 03:54 Giant Platelets Not Reportable 03/03/22 03:54 Platelet Satelliting Not Reportable 03/03/22 03:54 Plt Morphology Comment Not Reportable 03/03/22 03:54 RBC Morphology Not Reportable 03/03/22 03:54 Dimorphic RBCs Not Reportable 03/03/22 03:54 Polychromasia Not Reportable 03/03/22 03:54 Hypochromasia Not Reportable 03/03/22 03:54 Poikilocytosis Not Reportable 03/03/22 03:54 Anisocytosis 1+ 03/03/22 03:54 Microcytosis Not Reportable 03/03/22 03:54 Macrocytosis Not Reportable 03/03/22 03:54 Spherocytes Not Reportable 03/03/22 03:54 Pappenheimer Bodies Not Reportable 03/03/22 03:54 Sickle Cells Not Reportable 03/03/22 03:54 Target Cells Not Reportable 03/03/22 03:54 Tear Drop Cells Not Reportable 03/03/22 03:54 Ovalocytes Not Reportable 03/03/22 03:54 Helmet Cells Not Reportable 03/03/22 03:54 [place] Bodies Not Reportable 03/03/22 03:54 [place] Rings Not Reportable 03/03/22 03:54 [place] Cells Not Reportable 03/03/22 03:54 Bite Cells Not Reportable 03/03/22 03:54 Crenated Cell Not Reportable 03/03/22 03:54 Elliptocytes Not Reportable 03/03/22 03:54 Acanthocytes (Spur) Not Reportable 03/03/22 03:54 Rouleaux Not Reportable 03/03/22 03:54 Hemoglobin C Crystals Not Reportable 03/03/22 03:54 Schistocytes Not Reportable 03/03/22 03:54 Malaria parasites Not Reportable 03/03/22 03:54 [place] Bodies Not Reportable 03/03/22 03:54 Hem Pathologist Commnt No 03/03/22 03:54 PT 16.9 Sec. (12.2-14.9) H 02/18/22 21:02 INR 1.20 (0.87-1.13) H 02/18/22 21:02 ABG pH 7.411 pH Units (7.350-7.450) 03/02/22 05:18 ABG pCO2 53.2 mm Hg 03/02/22 05:18 ABG pO2 110.5 mm Hg (80.0-90.0) H 03/02/22 05:18 ABG HCO3 33.0 mmol/L (20.0-26.0) H 03/02/22 05:18 ABG O2 Saturation 97.9 % (95.0-99.0) 03/02/22 05:18 ABG O2 Content 11.8 (0.0-44) 03/02/22 05:18 ABG Base Excess 7.4 mmol/L (-2.0-3.0) H 03/02/22 05:18 ABG Hemoglobin 8.6 gm/dl (14.0-18.0) L 03/02/22 05:18 ABG Carboxyhemoglobin 1.4 % (0.0-5.0) 03/02/22 05:18 ABG Methemoglobin 0.6 % (0.0-1.5) 03/02/22 05:18 Oxyhemoglobin 96.0 % (95.0-99.0) 03/02/22 05:18 FiO2 40 % 03/02/22 05:18 Sodium 144 mmol/L (137-145) 03/08/22 04:34 Potassium 4.0 mmol/L (3.6-5.0) 03/08/22 04:34 Chloride 106.1 mmol/L (98-107) 03/08/22 04:34 Carbon Dioxide 33 mmol/L (22-30) H 03/08/22 04:34 Anion Gap 9 mmol/L 03/08/22 04:34 BUN 16 mg/dL (9-20) 03/08/22 04:34 Creatinine 0.5 mg/dL (0.8-1.3) L 03/08/22 04:34 Estimated GFR > 60 ml/min 03/08/22 04:34 BUN/Creatinine Ratio 32 % 03/08/22 04:34 Glucose 109 mg/dL (75-100) H 03/08/22 04:34 POC Glucose 106 mg/dL (70-105) H 03/08/22 23:56 Lactic Acid 1.20 mmol/L (0.7-2.0) 02/18/22 21:02 Calcium 7.6 mg/dL (8.4-10.2) L 03/08/22 04:34 Phosphorus 2.00 mg/dL (2.5-4.5) L 03/06/22 04:17 Magnesium 1.90 mg/dL (1.7-2.3) 03/06/22 04:17 Total Bilirubin 0.50 mg/dL (0.1-1.2) 02/18/22 21:02 AST 48 units/L (5-40) H 02/18/22 21:02 ALT 64 units/L (7-56) H 02/18/22 21:02 Alkaline Phosphatase 88 units/L (35-129) 02/18/22 21:02 Ammonia 14.0 umol/L (25-60) L 02/18/22 23:22 Troponin T < 0.010 ng/mL (0.00-0.029) 02/18/22 21:02 Total Protein 7.2 g/dL (6.3-8.2) 02/18/22 21:02 Albumin 2.7 g/dL (3.9-5) L 02/18/22 21:02 Albumin/Globulin Ratio 0.6 % 02/18/22 21:02 Urine Color Dark yellow (Yellow) 02/18/22 Unknown Urine Turbidity Clear (Clear) 02/18/22 Unknown Urine pH 7.0 (5.0-7.0) 02/18/22 Unknown Ur Specific [place] 1.015 (1.003-1.030) 02/18/22 Unknown Urine Protein <15 mg/dl mg/dL (Negative) 02/18/22 Unknown Urine Glucose (UA) Negative mg/dL (Negative) 02/18/22 Unknown Urine Ketones Negative mg/dL (Negative) 02/18/22 Unknown Urine Blood Trace (Negative) 02/18/22 Unknown Urine Nitrite Negative (Negative) 02/18/22 Unknown Urine Bilirubin Negative (Negative) 02/18/22 Unknown Urine Urobilinogen < 2.0 mg/dL (<2.0) 02/18/22 Unknown Ur Leukocyte Esterase Negative (Negative) 02/18/22 Unknown Urine WBC (Auto) 2.0 /HPF (0.0-6.0) 02/18/22 Unknown Urine RBC (Auto) 9.0 /HPF (0.0-6.0) 02/18/22 Unknown Urine Mucus Few /HPF 02/18/22 Unknown Urine Opiates Screen Negative 02/18/22 Unknown Urine Methadone Screen Negative 02/18/22 Unknown Ur Barbiturates Screen Negative 02/18/22 Unknown Ur Phencyclidine Scrn Negative 02/18/22 Unknown Ur Amphetamines Screen Negative 02/18/22 Unknown U Benzodiazepines Scrn Negative 02/18/22 Unknown Urine Cocaine Screen Negative 02/18/22 Unknown U Marijuana (THC) Screen Negative 02/18/22 Unknown Drugs of Abuse Note Disclamer 02/18/22 Unknown Plasma/Serum Alcohol < 0.01 % (0-0.07) 02/18/22 21:02 Horowitz/IV: Voiding Method Indwelling Catheter Active Medications - Current Medications Current Medications: Generic Name Dose Route Start Last Admin Trade Name Freq PRN Reason Stop Dose Admin Acetaminophen 650 mg 03/03/22 09:00 Acetaminophen 325 Mg/10.15 Ml Oral Liqd Unit Dose FEEDTUBE Q4H PRN Pain, Mild (1-3); TEMP > 100.4 Albuterol 2.5 mg 02/23/22 16:00 03/09/22 04:43 Albuterol 2.5 Mg/3 Ml Nebu IH 2.5 mg Q4HRT LAZARUS Administration Famotidine 20 mg 02/25/22 10:00 03/08/22 21:20 Famotidine 20 Mg Tab FEEDTUBE 20 mg BID LAZARUS Administration Heparin Sodium (Porcine) 5,000 unit 02/19/22 06:00 03/09/22 06:26 Heparin 5,000 Unit/1 Ml Vial SUB-Q 5,000 unit Q8HR LAZARUS Administration Hydrophilic Ointment 1 applic 02/24/22 15:05 Lip Therapy Vaseline TP Q2HR PRN Dry Lips Levetiracetam 500 mg 02/25/22 22:00 03/08/22 21:20 Levetiracetam 500 Mg/5 Ml Oral Liqd FEEDTUBE 500 mg BID LAZARUS Administration Levothyroxine Sodium 25 mcg 02/26/22 06:00 03/09/22 06:27 Levothyroxine 25 Mcg Tab FEEDTUBE 25 mcg QAM@0600 LAZARUS Administration Magnesium Hydroxide 30 ml 02/19/22 02:02 Magnesium Hydroxide (Mom) Oral Liqd Udc PO Q4H PRN Constipation Morphine Sulfate 2 mg 02/19/22 02:02 Morphine 2 Mg/1 Ml Inj IV Q4H PRN Pain, Moderate (4-6) Morphine Sulfate 4 mg 02/19/22 02:02 Morphine 4 Mg/1 Ml Inj IV Q4H PRN Pain , Severe (7-10) Multi-Ingred Cream/Lotion/Oil/Oint 1 applic 02/24/22 15:05 Mineral Oil/Petrolatum, White Ophth Oint 3.5 Gm OU Q4HR PRN Dry Eye(s) Ondansetron HCl 4 mg 02/19/22 02:02 Ondansetron 4 Mg/2 Ml Inj IV Q8H PRN Nausea And Vomiting Pravastatin Sodium 40 mg 02/25/22 22:00 03/08/22 21:20 Pravastatin 40 Mg Tab FEEDTUBE 40 mg QHS LAZARUS Administration Senna/Docusate Sodium 1 tab 02/24/22 22:00 03/09/22 02:22 Sennosides/Docusate Sodium 8.6/50 Mg Tab FEEDTUBE Not Given BID LAZARUS Sodium Chloride 10 ml 02/19/22 10:00 03/09/22 02:22 Sodium Chloride 0.9% 10 Ml Flush Syringe IV 10 ml BID LAZARUS Administration Sodium Chloride 10 ml 02/19/22 02:02 03/03/22 14:21 Sodium Chloride 0.9% 10 Ml Flush Syringe IV 10 ml PRN PRN Administration LINE FLUSH Nutrition/Malnutrition Assess - Dietary Evaluation Nutrition/Malnutrition Findings: Nutrition Notes Start: 02/19/22 14:29 Freq: Status: Active Protocol: Document 03/07/22 14:34 IVAN (Rec: 03/07/22 14:44 [email or web address] [id number]) Nutrition Notes Initial or Follow up Reassessment Current Diagnosis Hypertension,Respiratory Failure,Hyperlipidemia Other Pertinent Diagnosis Asp pneu, acute encephalopathy , seizure d/o, partial blindness Current Diet TF - Vital AF 1.2 at 50ml/hr Labs/Tests Reviewed Pertinent Medications Reviewed Height 5 ft 3 in Weight 63.2 kg [place] Body Weight (kg) 56.36 BMI 24.7 Weight change and time frame Unable to obtain current wt; bed scale not working - RN aware Weight Status Appropriate Subjective/Other Information Observed TF infusing at goal rate. Pt tolerating TF and remains on vent support. Pt been intubated since 02/24/22 via ETT. Trach/PEG placement pending. Percent of energy/protein needs met: 90% energy 100% pro Burn Absent Trauma Absent #1 Nutrition Diagnosis Inadequate oral intake Diagnosis Progress(for reassessment Continues documentation) Is patient on ventilator? Yes Is Patient Ambulatory and/or Out of Bed No REE-([place]-St. Jeor-confined to bed) [phone] Calculation Used for Recommendations [place]-St Jeor Additional Notes Pro needs 1.2-2g/k-126g/ day Fluid needs 1ml/kcal Nutrition Intervention Nutrition Support: Continue Vital AF 1.2 at 50ml/ hr with 75ml water flush q4h. Kcal 1,440 Protein (gm) 90 Carbohydrates (gm) 133 Fat (gm) 65 Fluid (mL) 973 Fiber (gm) 6 Goal #1 TF tolerance Goal #2 TF to meet at least 75% energy and pro needs Follow-Up By: 03/14/22 Additional Comments F/U: stable TF, trach/PEG placement, vent status, wt
[2022-03-08] MEDS: PRAVASTATIN 40 MG TAB FEEDTUBE SCH (21:20)
[2022-03-09] MEDS: ALBUTEROL 2.5 MG/3 ML NEBU IH SCH ×6 (00:34→20:36)
[2022-03-09] MEDS: SENNOSIDES/DOCUSATE SODIUM 8.6/50 MG TAB FEEDTUBE SCH ×3 (02:22→21:16)
[2022-03-09] MEDS: HEPARIN 5,000 UNIT/1 ML VIAL SUB-Q SCH ×3 (06:26→21:16)
[2022-03-09] MEDS: LEVOTHYROXINE 25 MCG TAB FEEDTUBE SCH (06:27)
--- NOTE | 2022-03-09 09:10 | Progress Note ---
<KEATON GOLD - Last Filed: 03/09/22 16:05> Assessment and Plan Assessment and plan: This is a 51-year-old male with HTN, seizure disorder, Down syndrome, HLD, partial blindness admitted with aspiration pneumonia, probable bronchogenic carcinoma, acute hypoxic respiratory failure and acute encephalopathy Hospital course to date: 02/19/2022. Consult pulmonary for further evaluation and possible bronchoscopy. I suspect patient has component of aspiration pneumonia as well. We will obtain a speech therapy evaluation for swallowing and start empiric antibiotics. Continue O2 supplementation to maintain sats greater than 92%. 02/20/2022. Pulmonary feels that the abnormality seen on CT scan is highly unlikely for a mass given negative chest x-ray 1 month ago and no risk factors. Etiology is likely secondary to aspiration from possibly a foreign body most likely food with atelectasis of the right lower lobe. Bronchoscopy is needed in the case to evaluate to see if lung mass is there vs foreign body, but at this time not able to do because no identifiable person that is able to give consent. Continue aspiration precautions and continue speech therapy evaluation for swallowing. Keep n.p.o. for now 02/21/2022. Patient remains NPO. Consider DHT placement. Follow-up with speech therapy evaluation. Pulmonology to consider bronchoscopy if able to obtain consent. Continue IV antibiotics for aspiration pneumonia 02/22/2022. Patient remains NPO. Consider DHT placement. Follow-up with speech therapy evaluation. Pulmonology to consider bronchoscopy if able to obtain consent. Continue IV antibiotics for aspiration pneumonia 02/23/2022. DHT placed yesterday. TF initiated for nutritional support. Patient currently with strict NPO. Aspiration precautions. Pulmonology to consider bronchoscopy if able to obtain consent. Continue IV antibiotics for aspiration pneumonia 02/24: Patient was transferred to the ICU for further monitoring. This morning patient remained on high flow nasal cannula on 40 L/100% and despite repeated nasotracheal suctioning patient SPO2 remained in the 80s. Patient was placed on nonrebreather and SPO2 increased to upper 80s. Patient was subsequently intubated by anesthesia. Started on sedation. 02/25: Patient remains sedated on fentanyl, potassium and magnesium repleted. IV fluids and amlodipine discontinued. Possible bronchoscopy tomorrow. 02/26: Patient had a bronchoscopy today which showed mucus and no endobronchial lesions or masses. FiO2 was increased to 100 during and postprocedure weaning as tolerated. Repeat CXR is much improved after bronc. Given 1 L LR bolus due to hypotension. No acute events reported overnight. 02/27: Decreased PEEP, will repeat CT of chest. no acute changes overnight. 02/28: Patient was extubated today however had to be be intubated shortly after. Patient ETT looked mispositioned on x-ray and Dr. Alonzo did do a bedside bronc. Patient was briefly hypotensive and on Levophed postintubation however Levophed was quickly titrated off and patient did not require central line. No acute events reported overnight. Will obtain CT neck d/t difficulty intubating. Ethi committee consulted. 03/04: Overnight patient was hypotensive and started on IVF. Patient started on steroids as no air leak noted and hypotension and given 2 L LR 03/05: Overnight patient received bolus per RN report, no orders seen. Continue supportive care 03/03: SB on the monitor, HR as low as 37, VSS. Will continue to monitor for now. Awaiting on desicion from [facility] for possible trach and PEG. Continue daily air leak per [facility] 03/04: MAIDA overnight. Remains stable on the vent. Awaiting on desicion from [facility] for possible trach and PEG. Continue current supportive measures 03/05: MAIDA overnight. Awaiting on desicion from [facility] for possible trach and PEG. Midodrine held yesterday, HR improved. Continue current supportive measures. Daily PSV trial as tolerated per [facility] 03/06: Remains stable on the vent. Continue current supportive measures, daily PSV trial per [facility]. Awaiting on desicion for possible trach and PEG. 03/07: MAIDA overnight, remains stable. Continue daily PSV trial as tolerated. Awaiting on desicion for possible trach and PEG. 03/08: Patient failed PSV trial this am due to tachycardia and increase RR. Continue supportive measures and daily PSV trial as tolerated. Possible discussion with [facility] and [facility] on Thursday in regards to medical necessity, may need to consider two physician consent if no one is able to claim responsibility for this patient. 03/09: MAIDA overnight. Continue current supportive measures and daily PSV trail as tolerated. Awaiting on desicion for possible trach and PEG, discussion with Ethics possibly tomorrow per [facility]. Neuro: Acute encephalopathy, h/o seizure disorder, Down syndrome, partial blindness -Patient currently sedated with propofol -RASS goal 0 to -1 -Reorientation as needed -Maintain sleep-wake cycle -aspiration/seizure precautions -As needed analgesia -CT head showed no acute abnormality -Continue Keppra Cardiac: Hypotension, h/o HTN, HLD -Cardiology consulted, appreciate recommendations -Blood pressure monitoring per protocol -d/c amlodipine -Midodrine TID- held due to bradycardia. BP stable Respiratory: Acute hypoxic respiratory failure, r/o bronchogenic carcinoma -CCM consulted, appreciate recommendations -Intubated on 02/24 with a 8.0 at 23 at the lips but extubated 02/28 -reintubated 02/28 with 8.0 OETT -Vent settings: AC rate 14, TV 360, PEEP 6, FO2 30% -See RT notes for titration -VAP bundle -SPO2 monitoring -02/18 CTA chest showed no evidence of pulmonary embolism, suspected bronchogenic carcinoma with associated obstruction of the right lower lobe proximal bronchus segment, 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 adenopathy and suspected to left lower lobe metastatic nodule -02/26 Bronch->mucous, no lesion noted -02/27 CT chest showed right mainstem bronchus patent with small amount of interval bronchial fluid which may be mucus (this may account for the appearance of the prior CTA chest fluid-filled airway rather than entering bronchial lesion), previously seen complete left lower lobe since related to bronchial occlusion has significantly improved, there is persistent compressive atelectasis in the right lower lung secondary to the pleural effusion, bilateral pleural effusions, right lung pneumonia -CT neck showed no acute changes - IV Steroids stopped GI: Moderate protein calorie malnutrition -PPI -NTR consulted for tube feedings -BR: Senokot S : Hypernatremia (resolved) -FWF 200 ml q4 hr -Monitor intake and output -Renally dose medications -Avoid nephrotoxic medications -Trend BMP ID: Aspiration PNA -S/p Rocephin for 5 days (02/19-02/24) -Monitor WBC and temperature curve Endo: NAD -Avoid hypoglycemia -Accu-Cheks every 6 -Avoid hypoglycemia Heme: NAD -Trend CBC -Transfuse hemoglobin less than 7 -SCDs to BLE while in bed The high probability of a clinically significant, sudden or life threatening deterioration of the [resp] system(s) required my full and direct attention, intervention and personal management. The aggregate critical care time was [60] minutes. This time is in addition to time spent performing reported procedures but includes the following: [x] Data Review and interpretation [x] Patient assessment and monitoring of vital signs [x] Documentation [x] Medication orders and management Disposition Plan: ICU Total Time Spent with Patient (Minutes): 60 History Interval history: Patient seen and examined at the bedside. Remains stable on low vent setting, not on any sedation. Open eyes spontaneously and move extremities but does not follow any commands. SR on the monitor this am, VSS. MAIDA overnight Hospitalist Physical - Physical exam Narrative exam: General appearance: Present: no acute distress, well-nourished, obese - EENT Eyes: Present: PERRL - Neck Neck: Present: normal ROM - Respiratory Respiratory effort: normal Respiratory: bilateral: rhonchi - Cardiovascular Rhythm: regular Heart Sounds: Present: S1 & S2 - Extremities Extremities: no ischemia, pulses intact, pulses symmetrical Extremity abnormal: edema - Peripheral Assessment Generalized Edema Type: Non-pitting Edema Degree: 1+ Capillary Refill: < 3 seconds Skin Temperature: Warm Peripheral Pulses: within normal limits - Abdominal General gastrointestinal: soft, non-distended, normal bowel sounds - Integumentary Integumentary: Present: warm, dry - Psychiatric Psychiatric: other (Intubated, unresponsive. Not on any sedations) - Neurologic Neurologic: moves all extremities, other (Intubated, unresponsive. Not on any sedations) - Allied Health Allied health notes reviewed: nursing, case management - Constitutional Vitals: Temp Pulse Resp BP Pulse Ox 98.0 F 58 L 12 107/48 100 03/09/22 07:09 03/09/22 09:01 03/09/22 09:01 03/09/22 09:01 03/09/22 09:01 HEART Score - HEART Score Troponin: Troponin T < 0.010 ng/mL (0.00-0.029) 02/18/22 21:02 Results - Labs CBC & Chem 7: 03/08/22 04:34 03/08/22 04:34 Labs: Laboratory Last Values WBC 9.7 K/mm3 (4.5-11.0) 03/08/22 04:34 RBC 2.86 M/mm3 (3.65-5.03) L 03/08/22 04:34 Hgb 9.2 gm/dl (11.8-15.2) L 03/08/22 04:34 Hct 29.3 % (35.5-45.6) L 03/08/22 04:34 MCV 103 fl (84-94) H 03/08/22 04:34 MCH 32 pg (28-32) 03/08/22 04:34 MCHC 31 % (32-34) L 03/08/22 04:34 RDW 16.9 % (13.2-15.2) H 03/08/22 04:34 Plt Count 308 K/mm3 (140-440) 03/08/22 04:34 Lymph % (Auto) 5.5 % (13.4-35.0) L 02/20/22 04:59 [place] % (Auto) 12.1 % (0.0-7.3) H 02/20/22 04:59 Eos % (Auto) 0.2 % (0.0-4.3) 02/20/22 04:59 Baso % (Auto) 0.8 % (0.0-1.8) 02/20/22 04:59 Lymph # (Auto) 0.6 K/mm3 (1.2-5.4) L 02/20/22 04:59 [place] # (Auto) 1.4 K/mm3 (0.0-0.8) H 02/20/22 04:59 Eos # (Auto) 0.0 K/mm3 (0.0-0.4) 02/20/22 04:59 Baso # (Auto) 0.1 K/mm3 (0.0-0.1) 02/20/22 04:59 Add Manual Diff Complete 03/03/22 03:54 Total Counted 100 03/03/22 03:54 Seg Neutrophils % 81.4 % (40.0-70.0) H 02/20/22 04:59 Seg Neuts % (Manual) 95.0 % (40.0-70.0) H 03/03/22 03:54 Band Neutrophils % 0 % 03/03/22 03:54 Lymphocytes % (Manual) 3.0 % (13.4-35.0) L 03/03/22 03:54 Reactive Lymphs % (Man) 0 % 03/03/22 03:54 Monocytes % (Manual) 2.0 % (0.0-7.3) 03/03/22 03:54 Eosinophils % (Manual) 0 % (0.0-4.3) 03/03/22 03:54 Basophils % (Manual) 0 % (0.0-1.8) 03/03/22 03:54 Metamyelocytes % 0 % 03/03/22 03:54 Myelocytes % 0 % 03/03/22 03:54 Promyelocytes % 0 % 03/03/22 03:54 Blast Cells % 0 % 03/03/22 03:54 Nucleated RBC % Not Reportable 03/03/22 03:54 Seg Neutrophils # 9.2 K/mm3 (1.8-7.7) H 02/20/22 04:59 Seg Neutrophils # Man 18.5 K/mm3 (1.8-7.7) H 03/03/22 03:54 Band Neutrophils # 0.0 K/mm3 03/03/22 03:54 Lymphocytes # (Manual) 0.6 K/mm3 (1.2-5.4) L 03/03/22 03:54 Abs React Lymphs (Man) 0.0 K/mm3 03/03/22 03:54 Monocytes # (Manual) 0.4 K/mm3 (0.0-0.8) 03/03/22 03:54 Eosinophils # (Manual) 0.0 K/mm3 (0.0-0.4) 03/03/22 03:54 Basophils # (Manual) 0.0 K/mm3 (0.0-0.1) 03/03/22 03:54 Metamyelocytes # 0.0 K/mm3 03/03/22 03:54 Myelocytes # 0.0 K/mm3 03/03/22 03:54 Promyelocytes # 0.0 K/mm3 03/03/22 03:54 Blast Cells # 0.0 K/mm3 03/03/22 03:54 WBC Morphology Not Reportable 03/03/22 03:54 Hypersegmented Neuts Not Reportable 03/03/22 03:54 Hyposegmented Neuts Not Reportable 03/03/22 03:54 Hypogranular Neuts Not Reportable 03/03/22 03:54 Smudge Cells Not Reportable 03/03/22 03:54 Toxic Granulation Not Reportable 03/03/22 03:54 Toxic Vacuolation Not Reportable 03/03/22 03:54 Dohle Bodies Not Reportable 03/03/22 03:54 Pelger-Huet Anomaly Not Reportable 03/03/22 03:54 Lakshmi Rods Not Reportable 03/03/22 03:54 Platelet Estimate Consistent w auto 03/03/22 03:54 Clumped Platelets Not Reportable 03/03/22 03:54 Plt Clumps, EDTA Not Reportable 03/03/22 03:54 Large Platelets Not Reportable 03/03/22 03:54 Giant Platelets Not Reportable 03/03/22 03:54 Platelet Satelliting Not Reportable 03/03/22 03:54 Plt Morphology Comment Not Reportable 03/03/22 03:54 RBC Morphology Not Reportable 03/03/22 03:54 Dimorphic RBCs Not Reportable 03/03/22 03:54 Polychromasia Not Reportable 03/03/22 03:54 Hypochromasia Not Reportable 03/03/22 03:54 Poikilocytosis Not Reportable 03/03/22 03:54 Anisocytosis 1+ 03/03/22 03:54 Microcytosis Not Reportable 03/03/22 03:54 Macrocytosis Not Reportable 03/03/22 03:54 Spherocytes Not Reportable 03/03/22 03:54 Pappenheimer Bodies Not Reportable 03/03/22 03:54 Sickle Cells Not Reportable 03/03/22 03:54 Target Cells Not Reportable 03/03/22 03:54 Tear Drop Cells Not Reportable 03/03/22 03:54 Ovalocytes Not Reportable 03/03/22 03:54 Helmet Cells Not Reportable 03/03/22 03:54 [place] Bodies Not Reportable 03/03/22 03:54 [place] Rings Not Reportable 03/03/22 03:54 [place] Cells Not Reportable 03/03/22 03:54 Bite Cells Not Reportable 03/03/22 03:54 Crenated Cell Not Reportable 03/03/22 03:54 Elliptocytes Not Reportable 03/03/22 03:54 Acanthocytes (Spur) Not Reportable 03/03/22 03:54 Rouleaux Not Reportable 03/03/22 03:54 Hemoglobin C Crystals Not Reportable 03/03/22 03:54 Schistocytes Not Reportable 03/03/22 03:54 Malaria parasites Not Reportable 03/03/22 03:54 Cash Bodies Not Reportable 03/03/22 03:54 Hem Pathologist Commnt No 03/03/22 03:54 PT 16.9 Sec. (12.2-14.9) H 02/18/22 21:02 INR 1.20 (0.87-1.13) H 02/18/22 21:02 ABG pH 7.411 pH Units (7.350-7.450) 03/02/22 05:18 ABG pCO2 53.2 mm Hg 03/02/22 05:18 ABG pO2 110.5 mm Hg (80.0-90.0) H 03/02/22 05:18 ABG HCO3 33.0 mmol/L (20.0-26.0) H 03/02/22 05:18 ABG O2 Saturation 97.9 % (95.0-99.0) 03/02/22 05:18 ABG O2 Content 11.8 (0.0-44) 03/02/22 05:18 ABG Base Excess 7.4 mmol/L (-2.0-3.0) H 03/02/22 05:18 ABG Hemoglobin 8.6 gm/dl (14.0-18.0) L 03/02/22 05:18 ABG Carboxyhemoglobin 1.4 % (0.0-5.0) 03/02/22 05:18 ABG Methemoglobin 0.6 % (0.0-1.5) 03/02/22 05:18 Oxyhemoglobin 96.0 % (95.0-99.0) 03/02/22 05:18 FiO2 40 % 03/02/22 05:18 Sodium 144 mmol/L (137-145) 03/08/22 04:34 Potassium 4.0 mmol/L (3.6-5.0) 03/08/22 04:34 Chloride 106.1 mmol/L (98-107) 03/08/22 04:34 Carbon Dioxide 33 mmol/L (22-30) H 03/08/22 04:34 Anion Gap 9 mmol/L 03/08/22 04:34 BUN 16 mg/dL (9-20) 03/08/22 04:34 Creatinine 0.5 mg/dL (0.8-1.3) L 03/08/22 04:34 Estimated GFR > 60 ml/min 03/08/22 04:34 BUN/Creatinine Ratio 32 % 03/08/22 04:34 Glucose 109 mg/dL (75-100) H 03/08/22 04:34 POC Glucose 106 mg/dL (70-105) H 03/08/22 23:56 Lactic Acid 1.20 mmol/L (0.7-2.0) 02/18/22 21:02 Calcium 7.6 mg/dL (8.4-10.2) L 03/08/22 04:34 Phosphorus 2.00 mg/dL (2.5-4.5) L 03/06/22 04:17 Magnesium 1.90 mg/dL (1.7-2.3) 03/06/22 04:17 Total Bilirubin 0.50 mg/dL (0.1-1.2) 02/18/22 21:02 AST 48 units/L (5-40) H 02/18/22 21:02 ALT 64 units/L (7-56) H 02/18/22 21:02 Alkaline Phosphatase 88 units/L (35-129) 02/18/22 21:02 Ammonia 14.0 umol/L (25-60) L 02/18/22 23:22 Troponin T < 0.010 ng/mL (0.00-0.029) 02/18/22 21:02 Total Protein 7.2 g/dL (6.3-8.2) 02/18/22 21:02 Albumin 2.7 g/dL (3.9-5) L 02/18/22 21:02 Albumin/Globulin Ratio 0.6 % 02/18/22 21:02 Urine Color Dark yellow (Yellow) 02/18/22 Unknown Urine Turbidity Clear (Clear) 02/18/22 Unknown Urine pH 7.0 (5.0-7.0) 02/18/22 Unknown Ur Specific [place] 1.015 (1.003-1.030) 02/18/22 Unknown Urine Protein <15 mg/dl mg/dL (Negative) 02/18/22 Unknown Urine Glucose (UA) Negative mg/dL (Negative) 02/18/22 Unknown Urine Ketones Negative mg/dL (Negative) 02/18/22 Unknown Urine Blood Trace (Negative) 02/18/22 Unknown Urine Nitrite Negative (Negative) 02/18/22 Unknown Urine Bilirubin Negative (Negative) 02/18/22 Unknown Urine Urobilinogen < 2.0 mg/dL (<2.0) 02/18/22 Unknown Ur Leukocyte Esterase Negative (Negative) 02/18/22 Unknown Urine WBC (Auto) 2.0 /HPF (0.0-6.0) 02/18/22 Unknown Urine RBC (Auto) 9.0 /HPF (0.0-6.0) 02/18/22 Unknown Urine Mucus Few /HPF 02/18/22 Unknown Urine Opiates Screen Negative 02/18/22 Unknown Urine Methadone Screen Negative 02/18/22 Unknown Ur Barbiturates Screen Negative 02/18/22 Unknown Ur Phencyclidine Scrn Negative 02/18/22 Unknown Ur Amphetamines Screen Negative 02/18/22 Unknown U Benzodiazepines Scrn Negative 02/18/22 Unknown Urine Cocaine Screen Negative 02/18/22 Unknown U Marijuana (THC) Screen Negative 02/18/22 Unknown Drugs of Abuse Note Disclamer 02/18/22 Unknown Plasma/Serum Alcohol < 0.01 % (0-0.07) 02/18/22 21:02 Horowitz/IV: Voiding Method Indwelling Catheter Active Medications - Current Medications Current Medications: Generic Name Dose Route Start Last Admin Trade Name Freq PRN Reason Stop Dose Admin Acetaminophen 650 mg 03/03/22 09:00 Acetaminophen 325 Mg/10.15 Ml Oral Liqd Unit Dose FEEDTUBE Q4H PRN Pain, Mild (1-3); TEMP > 100.4 Albuterol 2.5 mg 02/23/22 16:00 03/09/22 07:52 Albuterol 2.5 Mg/3 Ml Nebu IH 2.5 mg Q4HRT LAZARUS Administration Famotidine 20 mg 02/25/22 10:00 03/08/22 21:20 Famotidine 20 Mg Tab FEEDTUBE 20 mg BID LAZARUS Administration Heparin Sodium (Porcine) 5,000 unit 02/19/22 06:00 03/09/22 06:26 Heparin 5,000 Unit/1 Ml Vial SUB-Q 5,000 unit Q8HR LAZARUS Administration Hydrophilic Ointment 1 applic 02/24/22 15:05 Lip Therapy Vaseline TP Q2HR PRN Dry Lips Levetiracetam 500 mg 02/25/22 22:00 03/08/22 21:20 Levetiracetam 500 Mg/5 Ml Oral Liqd FEEDTUBE 500 mg BID LAZARUS Administration Levothyroxine Sodium 25 mcg 02/26/22 06:00 03/09/22 06:27 Levothyroxine 25 Mcg Tab FEEDTUBE 25 mcg QAM@0600 LAZARUS Administration Magnesium Hydroxide 30 ml 02/19/22 02:02 Magnesium Hydroxide (Mom) Oral Liqd Udc PO Q4H PRN Constipation Morphine Sulfate 2 mg 02/19/22 02:02 Morphine 2 Mg/1 Ml Inj IV Q4H PRN Pain, Moderate (4-6) Morphine Sulfate 4 mg 02/19/22 02:02 Morphine 4 Mg/1 Ml Inj IV Q4H PRN Pain , Severe (7-10) Multi-Ingred Cream/Lotion/Oil/Oint 1 applic 02/24/22 15:05 Mineral Oil/Petrolatum, White Ophth Oint 3.5 Gm OU Q4HR PRN Dry Eye(s) Ondansetron HCl 4 mg 02/19/22 02:02 Ondansetron 4 Mg/2 Ml Inj IV Q8H PRN Nausea And Vomiting Pravastatin Sodium 40 mg 02/25/22 22:00 03/08/22 21:20 Pravastatin 40 Mg Tab FEEDTUBE 40 mg QHS LAZARUS Administration Senna/Docusate Sodium 1 tab 02/24/22 22:00 03/09/22 02:22 Sennosides/Docusate Sodium 8.6/50 Mg Tab FEEDTUBE Not Given BID LAZARUS Sodium Chloride 10 ml 02/19/22 10:00 03/09/22 02:22 Sodium Chloride 0.9% 10 Ml Flush Syringe IV 10 ml BID LAZARUS Administration Sodium Chloride 10 ml 02/19/22 02:02 03/03/22 14:21 Sodium Chloride 0.9% 10 Ml Flush Syringe IV 10 ml PRN PRN Administration LINE FLUSH Nutrition/Malnutrition Assess - Dietary Evaluation Nutrition/Malnutrition Findings: Nutrition Notes Start: 02/19/22 14:29 Freq: Status: Active Protocol: Document 03/07/22 14:34 IVAN (Rec: 03/07/22 14:44 IVAN [id number]) Nutrition Notes Initial or Follow up Reassessment Current Diagnosis Hypertension,Respiratory Failure,Hyperlipidemia Other Pertinent Diagnosis Asp pneu, acute encephalopathy , seizure d/o, partial blindness Current Diet TF - Vital AF 1.2 at 50ml/hr Labs/Tests Reviewed Pertinent Medications Reviewed Height 5 ft 3 in Weight 63.2 kg [place] Body Weight (kg) 56.36 BMI 24.7 Weight change and time frame Unable to obtain current wt; bed scale not working - RN aware Weight Status Appropriate Subjective/Other Information Observed TF infusing at goal rate. Pt tolerating TF and remains on vent support. Pt been intubated since 02/24/22 via ETT. Trach/PEG placement pending. Percent of energy/protein needs met: 90% energy 100% pro Burn Absent Trauma Absent #1 Nutrition Diagnosis Inadequate oral intake Diagnosis Progress(for reassessment Continues documentation) Is patient on ventilator? Yes Is Patient Ambulatory and/or Out of Bed No REE-([place]-confined to bed) [phone] Calculation Used for Recommendations [facility] Additional Notes Pro needs 1.2-2g/k-126g/ day Fluid needs 1ml/kcal Nutrition Intervention Nutrition Support: Continue Vital AF 1.2 at 50ml/ hr with 75ml water flush q4h. Kcal 1,440 Protein (gm) 90 Carbohydrates (gm) 133 Fat (gm) 65 Fluid (mL) 973 Fiber (gm) 6 Goal #1 TF tolerance Goal #2 TF to meet at least 75% energy and pro needs Follow-Up By: 03/14/22 Additional Comments F/U: stable TF, trach/PEG placement, vent status, wt <JOAQUIN ROBIN - Last Filed: 03/09/22 21:17> Assessment and Plan Assessment and plan: I saw and evaluated the patient. I agree with the findings and the plan of care as documented in the Nurse Practitioner's~note, with the following corrections and additions. Hospitalist Physical - Constitutional Vitals: Temp Pulse Resp BP Pulse Ox 98 F 66 15 119/55 97 03/09/22 20:00 03/09/22 20:40 03/09/22 20:40 03/09/22 20:01 03/09/22 20:01 HEART Score - HEART Score Troponin: Troponin T < 0.010 ng/mL (0.00-0.029) 02/18/22 21:02 Results - Labs CBC & Chem 7: 03/08/22 04:34 03/08/22 04:34 Labs: Laboratory Last Values WBC 9.7 K/mm3 (4.5-11.0) 03/08/22 04:34 RBC 2.86 M/mm3 (3.65-5.03) L 03/08/22 04:34 Hgb 9.2 gm/dl (11.8-15.2) L 03/08/22 04:34 Hct 29.3 % (35.5-45.6) L 03/08/22 04:34 MCV 103 fl (84-94) H 03/08/22 04:34 MCH 32 pg (28-32) 03/08/22 04:34 MCHC 31 % (32-34) L 03/08/22 04:34 RDW 16.9 % (13.2-15.2) H 03/08/22 04:34 Plt Count 308 K/mm3 (140-440) 03/08/22 04:34 Lymph % (Auto) 5.5 % (13.4-35.0) L 02/20/22 04:59 [place] % (Auto) 12.1 % (0.0-7.3) H 02/20/22 04:59 Eos % (Auto) 0.2 % (0.0-4.3) 02/20/22 04:59 Baso % (Auto) 0.8 % (0.0-1.8) 02/20/22 04:59 Lymph # (Auto) 0.6 K/mm3 (1.2-5.4) L 02/20/22 04:59 [place] # (Auto) 1.4 K/mm3 (0.0-0.8) H 02/20/22 04:59 Eos # (Auto) 0.0 K/mm3 (0.0-0.4) 02/20/22 04:59 Baso # (Auto) 0.1 K/mm3 (0.0-0.1) 02/20/22 04:59 Add Manual Diff Complete 03/03/22 03:54 Total Counted 100 03/03/22 03:54 Seg Neutrophils % 81.4 % (40.0-70.0) H 02/20/22 04:59 Seg Neuts % (Manual) 95.0 % (40.0-70.0) H 03/03/22 03:54 Band Neutrophils % 0 % 03/03/22 03:54 Lymphocytes % (Manual) 3.0 % (13.4-35.0) L 03/03/22 03:54 Reactive Lymphs % (Man) 0 % 03/03/22 03:54 Monocytes % (Manual) 2.0 % (0.0-7.3) 03/03/22 03:54 Eosinophils % (Manual) 0 % (0.0-4.3) 03/03/22 03:54 Basophils % (Manual) 0 % (0.0-1.8) 03/03/22 03:54 Metamyelocytes % 0 % 03/03/22 03:54 Myelocytes % 0 % 03/03/22 03:54 Promyelocytes % 0 % 03/03/22 03:54 Blast Cells % 0 % 03/03/22 03:54 Nucleated RBC % Not Reportable 03/03/22 03:54 Seg Neutrophils # 9.2 K/mm3 (1.8-7.7) H 02/20/22 04:59 Seg Neutrophils # Man 18.5 K/mm3 (1.8-7.7) H 03/03/22 03:54 Band Neutrophils # 0.0 K/mm3 03/03/22 03:54 Lymphocytes # (Manual) 0.6 K/mm3 (1.2-5.4) L 03/03/22 03:54 Abs React Lymphs (Man) 0.0 K/mm3 03/03/22 03:54 Monocytes # (Manual) 0.4 K/mm3 (0.0-0.8) 03/03/22 03:54 Eosinophils # (Manual) 0.0 K/mm3 (0.0-0.4) 03/03/22 03:54 Basophils # (Manual) 0.0 K/mm3 (0.0-0.1) 03/03/22 03:54 Metamyelocytes # 0.0 K/mm3 03/03/22 03:54 Myelocytes # 0.0 K/mm3 03/03/22 03:54 Promyelocytes # 0.0 K/mm3 03/03/22 03:54 Blast Cells # 0.0 K/mm3 03/03/22 03:54 WBC Morphology Not Reportable 03/03/22 03:54 Hypersegmented Neuts Not Reportable 03/03/22 03:54 Hyposegmented Neuts Not Reportable 03/03/22 03:54 Hypogranular Neuts Not Reportable 03/03/22 03:54 Smudge Cells Not Reportable 03/03/22 03:54 Toxic Granulation Not Reportable 03/03/22 03:54 Toxic Vacuolation Not Reportable 03/03/22 03:54 Dohle Bodies Not Reportable 03/03/22 03:54 Pelger-Huet Anomaly Not Reportable 03/03/22 03:54 Lakshmi Rods Not Reportable 03/03/22 03:54 Platelet Estimate Consistent w auto 03/03/22 03:54 Clumped Platelets Not Reportable 03/03/22 03:54 Plt Clumps, EDTA Not Reportable 03/03/22 03:54 Large Platelets Not Reportable 03/03/22 03:54 Giant Platelets Not Reportable 03/03/22 03:54 Platelet Satelliting Not Reportable 03/03/22 03:54 Plt Morphology Comment Not Reportable 03/03/22 03:54 RBC Morphology Not Reportable 03/03/22 03:54 Dimorphic RBCs Not Reportable 03/03/22 03:54 Polychromasia Not Reportable 03/03/22 03:54 Hypochromasia Not Reportable 03/03/22 03:54 Poikilocytosis Not Reportable 03/03/22 03:54 Anisocytosis 1+ 03/03/22 03:54 Microcytosis Not Reportable 03/03/22 03:54 Macrocytosis Not Reportable 03/03/22 03:54 Spherocytes Not Reportable 03/03/22 03:54 Pappenheimer Bodies Not Reportable 03/03/22 03:54 Sickle Cells Not Reportable 03/03/22 03:54 Target Cells Not Reportable 03/03/22 03:54 Tear Drop Cells Not Reportable 03/03/22 03:54 Ovalocytes Not Reportable 03/03/22 03:54 Helmet Cells Not Reportable 03/03/22 03:54 [place] Bodies Not Reportable 03/03/22 03:54 [place] Rings Not Reportable 03/03/22 03:54 [place] Cells Not Reportable 03/03/22 03:54 Bite Cells Not Reportable 03/03/22 03:54 Crenated Cell Not Reportable 03/03/22 03:54 Elliptocytes Not Reportable 03/03/22 03:54 Acanthocytes (Spur) Not Reportable 03/03/22 03:54 Rouleaux Not Reportable 03/03/22 03:54 Hemoglobin C Crystals Not Reportable 03/03/22 03:54 Schistocytes Not Reportable 03/03/22 03:54 Malaria parasites Not Reportable 03/03/22 03:54 Cash Bodies Not Reportable 03/03/22 03:54 Hem Pathologist Commnt No 03/03/22 03:54 PT 16.9 Sec. (12.2-14.9) H 02/18/22 21:02 INR 1.20 (0.87-1.13) H 02/18/22 21:02 ABG pH 7.411 pH Units (7.350-7.450) 03/02/22 05:18 ABG pCO2 53.2 mm Hg 03/02/22 05:18 ABG pO2 110.5 mm Hg (80.0-90.0) H 03/02/22 05:18 ABG HCO3 33.0 mmol/L (20.0-26.0) H 03/02/22 05:18 ABG O2 Saturation 97.9 % (95.0-99.0) 03/02/22 05:18 ABG O2 Content 11.8 (0.0-44) 03/02/22 05:18 ABG Base Excess 7.4 mmol/L (-2.0-3.0) H 03/02/22 05:18 ABG Hemoglobin 8.6 gm/dl (14.0-18.0) L 03/02/22 05:18 ABG Carboxyhemoglobin 1.4 % (0.0-5.0) 03/02/22 05:18 ABG Methemoglobin 0.6 % (0.0-1.5) 03/02/22 05:18 Oxyhemoglobin 96.0 % (95.0-99.0) 03/02/22 05:18 FiO2 40 % 03/02/22 05:18 Sodium 144 mmol/L (137-145) 03/08/22 04:34 Potassium 4.0 mmol/L (3.6-5.0) 03/08/22 04:34 Chloride 106.1 mmol/L (98-107) 03/08/22 04:34 Carbon Dioxide 33 mmol/L (22-30) H 03/08/22 04:34 Anion Gap 9 mmol/L 03/08/22 04:34 BUN 16 mg/dL (9-20) 03/08/22 04:34 Creatinine 0.5 mg/dL (0.8-1.3) L 03/08/22 04:34 Estimated GFR > 60 ml/min 03/08/22 04:34 BUN/Creatinine Ratio 32 % 03/08/22 04:34 Glucose 109 mg/dL (75-100) H 03/08/22 04:34 POC Glucose 110 mg/dL (70-105) H 03/09/22 11:15 Lactic Acid 1.20 mmol/L (0.7-2.0) 02/18/22 21:02 Calcium 7.6 mg/dL (8.4-10.2) L 03/08/22 04:34 Phosphorus 2.00 mg/dL (2.5-4.5) L 03/06/22 04:17 Magnesium 1.90 mg/dL (1.7-2.3) 03/06/22 04:17 Total Bilirubin 0.50 mg/dL (0.1-1.2) 02/18/22 21:02 AST 48 units/L (5-40) H 02/18/22 21:02 ALT 64 units/L (7-56) H 02/18/22 21:02 Alkaline Phosphatase 88 units/L (35-129) 02/18/22 21:02 Ammonia 14.0 umol/L (25-60) L 02/18/22 23:22 Troponin T < 0.010 ng/mL (0.00-0.029) 02/18/22 21:02 Total Protein 7.2 g/dL (6.3-8.2) 02/18/22 21:02 Albumin 2.7 g/dL (3.9-5) L 02/18/22 21:02 Albumin/Globulin Ratio 0.6 % 02/18/22 21:02 Urine Color Dark yellow (Yellow) 02/18/22 Unknown Urine Turbidity Clear (Clear) 02/18/22 Unknown Urine pH 7.0 (5.0-7.0) 02/18/22 Unknown Ur Specific [place] 1.015 (1.003-1.030) 02/18/22 Unknown Urine Protein <15 mg/dl mg/dL (Negative) 02/18/22 Unknown Urine Glucose (UA) Negative mg/dL (Negative) 02/18/22 Unknown Urine Ketones Negative mg/dL (Negative) 02/18/22 Unknown Urine Blood Trace (Negative) 02/18/22 Unknown Urine Nitrite Negative (Negative) 02/18/22 Unknown Urine Bilirubin Negative (Negative) 02/18/22 Unknown Urine Urobilinogen < 2.0 mg/dL (<2.0) 02/18/22 Unknown Ur Leukocyte Esterase Negative (Negative) 02/18/22 Unknown Urine WBC (Auto) 2.0 /HPF (0.0-6.0) 02/18/22 Unknown Urine RBC (Auto) 9.0 /HPF (0.0-6.0) 02/18/22 Unknown Urine Mucus Few /HPF 02/18/22 Unknown Urine Opiates Screen Negative 02/18/22 Unknown Urine Methadone Screen Negative 02/18/22 Unknown Ur Barbiturates Screen Negative 02/18/22 Unknown Ur Phencyclidine Scrn Negative 02/18/22 Unknown Ur Amphetamines Screen Negative 02/18/22 Unknown U Benzodiazepines Scrn Negative 02/18/22 Unknown Urine Cocaine Screen Negative 02/18/22 Unknown U Marijuana (THC) Screen Negative 02/18/22 Unknown Drugs of Abuse Note Disclamer 02/18/22 Unknown Plasma/Serum Alcohol < 0.01 % (0-0.07) 02/18/22 21:02 Horowitz/IV: Voiding Method Indwelling Catheter Active Medications - Current Medications Current Medications: Generic Name Dose Route Start Last Admin Trade Name Freq PRN Reason Stop Dose Admin Acetaminophen 650 mg 03/03/22 09:00 Acetaminophen 325 Mg/10.15 Ml Oral Liqd Unit Dose FEEDTUBE Q4H PRN Pain, Mild (1-3); TEMP > 100.4 Albuterol 2.5 mg 02/23/22 16:00 03/09/22 20:36 Albuterol 2.5 Mg/3 Ml Nebu IH 2.5 mg Q4HRT LAZARUS Administration Famotidine 20 mg 02/25/22 10:00 03/09/22 09:13 Famotidine 20 Mg Tab FEEDTUBE 20 mg BID LAZARUS Administration Heparin Sodium (Porcine) 5,000 unit 02/19/22 06:00 03/09/22 14:09 Heparin 5,000 Unit/1 Ml Vial SUB-Q 5,000 unit Q8HR LAZARUS Administration Hydrophilic Ointment 1 applic 02/24/22 15:05 Lip Therapy Vaseline TP Q2HR PRN Dry Lips Levetiracetam 500 mg 02/25/22 22:00 03/09/22 09:13 Levetiracetam 500 Mg/5 Ml Oral Liqd FEEDTUBE 500 mg BID LAZARUS Administration Levothyroxine Sodium 25 mcg 02/26/22 06:00 03/09/22 06:27 Levothyroxine 25 Mcg Tab FEEDTUBE 25 mcg QAM@0600 LAZARUS Administration Magnesium Hydroxide 30 ml 02/19/22 02:02 Magnesium Hydroxide (Mom) Oral Liqd Udc PO Q4H PRN Constipation Morphine Sulfate 2 mg 02/19/22 02:02 Morphine 2 Mg/1 Ml Inj IV Q4H PRN Pain, Moderate (4-6) Morphine Sulfate 4 mg 02/19/22 02:02 Morphine 4 Mg/1 Ml Inj IV Q4H PRN Pain , Severe (7-10) Multi-Ingred Cream/Lotion/Oil/Oint 1 applic 02/24/22 15:05 Mineral Oil/Petrolatum, White Ophth Oint 3.5 Gm OU Q4HR PRN Dry Eye(s) Ondansetron HCl 4 mg 02/19/22 02:02 Ondansetron 4 Mg/2 Ml Inj IV Q8H PRN Nausea And Vomiting Pravastatin Sodium 40 mg 02/25/22 22:00 03/08/22 21:20 Pravastatin 40 Mg Tab FEEDTUBE 40 mg QHS LAZARUS Administration Senna/Docusate Sodium 1 tab 02/24/22 22:00 03/09/22 09:14 Sennosides/Docusate Sodium 8.6/50 Mg Tab FEEDTUBE Not Given BID LAZARUS Sodium Chloride 10 ml 02/19/22 10:00 03/09/22 09:13 Sodium Chloride 0.9% 10 Ml Flush Syringe IV 10 ml BID LAZARUS Administration Sodium Chloride 10 ml 02/19/22 02:02 03/03/22 14:21 Sodium Chloride 0.9% 10 Ml Flush Syringe IV 10 ml PRN PRN Administration LINE FLUSH Nutrition/Malnutrition Assess - Dietary Evaluation Nutrition/Malnutrition Findings: Nutrition Notes Start: 02/19/22 14:29 Freq: Status: Active Protocol: Document 03/07/22 14:34 IVAN (Rec: 03/07/22 14:44 IVAN [id number]) Nutrition Notes Initial or Follow up Reassessment Current Diagnosis Hypertension,Respiratory Failure,Hyperlipidemia Other Pertinent Diagnosis Asp pneu, acute encephalopathy , seizure d/o, partial blindness Current Diet TF - Vital AF 1.2 at 50ml/hr Labs/Tests Reviewed Pertinent Medications Reviewed Height 5 ft 3 in Weight 63.2 kg [place] Body Weight (kg) 56.36 BMI 24.7 Weight change and time frame Unable to obtain current wt; bed scale not working - RN aware Weight Status Appropriate Subjective/Other Information Observed TF infusing at goal rate. Pt tolerating TF and remains on vent support. Pt been intubated since 02/24/22 via ETT. Trach/PEG placement pending. Percent of energy/protein needs met: 90% energy 100% pro Burn Absent Trauma Absent #1 Nutrition Diagnosis Inadequate oral intake Diagnosis Progress(for reassessment Continues documentation) Is patient on ventilator? Yes Is Patient Ambulatory and/or Out of Bed No REE-([facility]-confined to bed) [phone] Calculation Used for Recommendations [facility] Additional Notes Pro needs 1.2-2g/k-126g/ day Fluid needs 1ml/kcal Nutrition Intervention Nutrition Support: Continue Vital AF 1.2 at 50ml/ hr with 75ml water flush q4h. Kcal 1,440 Protein (gm) 90 Carbohydrates (gm) 133 Fat (gm) 65 Fluid (mL) 973 Fiber (gm) 6 Goal #1 TF tolerance Goal #2 TF to meet at least 75% energy and pro needs Follow-Up By: 03/14/22 Additional Comments F/U: stable TF, trach/PEG placement, vent status, wt
[2022-03-09] MEDS: levETIRAcetam 500 MG/5 ML ORAL LIQD FEEDTUBE SCH ×2 (09:13→21:16)
[2022-03-09] MEDS: FAMOTIDINE 20 MG TAB FEEDTUBE SCH ×2 (09:13→21:16)
--- NOTE | 2022-03-09 14:59 | Progress Note ---
Assessment and Plan Imp: 1. Aspiration pneumonitis 2. Atelectasis RLL 2/2 above 3. Acute respiratory failure, hypoxia 4. Down syndrome 5. Macrocytic anemia Rec: 1. Cont. current ventilator settings; await Trach/PEG 2. TFs, GI/DVT PPx 3. No family present; CCt 31 minutes Subjective Date of service: 03/08/22 Principal diagnosis: f/u Acute respiratory failure Interval history: No events. Eyes open, not following commands. Hx not obtainable. On Vent. Objective Vital Signs - 12hr 03/09/22 03/09/22 03/09/22 03:00 04:00 05:00 Temperature Pulse Rate 92 H 84 70 Pulse Rate [ 72 Bilateral Throughout] Pulse Rate [ 64 From Monitor] Pulse Rate [ 69 Posterior Bilateral Throughout] Respiratory 23 14 14 Rate Respiratory 16 Rate [Bilateral Throughout] Respiratory 17 Rate [Posterior Bilateral Throughout] Blood Pressure 105/47 124/56 139/73 O2 Sat by Pulse 85 97 Oximetry 03/09/22 03/09/22 03/09/22 06:00 07:00 07:09 Temperature 98.0 F Pulse Rate 62 63 Pulse Rate [ Bilateral Throughout] Pulse Rate [ From Monitor] Pulse Rate [ Posterior Bilateral Throughout] Respiratory 14 14 Rate Respiratory Rate [Bilateral Throughout] Respiratory Rate [Posterior Bilateral Throughout] Blood Pressure 132/63 131/56 O2 Sat by Pulse 96 100 Oximetry 03/09/22 03/09/22 03/09/22 07:44 07:52 08:00 Temperature Pulse Rate 66 62 Pulse Rate [ Bilateral Throughout] Pulse Rate [ From Monitor] Pulse Rate [ 63 Posterior Bilateral Throughout] Respiratory 14 Rate Respiratory Rate [Bilateral Throughout] Respiratory 14 Rate [Posterior Bilateral Throughout] Blood Pressure 131/56 121/54 O2 Sat by Pulse 100 100 Oximetry 03/09/22 03/09/22 03/09/22 08:10 09:01 10:00 Temperature Pulse Rate 58 L 58 L Pulse Rate [ Bilateral Throughout] Pulse Rate [ From Monitor] Pulse Rate [ Posterior Bilateral Throughout] Respiratory 12 12 Rate Respiratory Rate [Bilateral Throughout] Respiratory Rate [Posterior Bilateral Throughout] Blood Pressure 107/48 104/46 O2 Sat by Pulse 100 100 99 Oximetry 03/09/22 03/09/22 03/09/22 11:00 11:33 11:49 Temperature 97.6 F Pulse Rate 65 55 L Pulse Rate [ Bilateral Throughout] Pulse Rate [ From Monitor] Pulse Rate [ Posterior Bilateral Throughout] Respiratory 14 Rate Respiratory Rate [Bilateral Throughout] Respiratory Rate [Posterior Bilateral Throughout] Blood Pressure 94/43 140/65 O2 Sat by Pulse 94 100 Oximetry 03/09/22 03/09/22 03/09/22 11:55 11:56 12:00 Temperature Pulse Rate 54 L Pulse Rate [ Bilateral Throughout] Pulse Rate [ From Monitor] Pulse Rate [ 63 Posterior Bilateral Throughout] Respiratory 14 Rate Respiratory Rate [Bilateral Throughout] Respiratory 14 Rate [Posterior Bilateral Throughout] Blood Pressure 99/38 O2 Sat by Pulse 100 100 Oximetry 03/09/22 03/09/22 13:00 14:00 Temperature Pulse Rate 55 L 53 L Pulse Rate [ Bilateral Throughout] Pulse Rate [ From Monitor] Pulse Rate [ Posterior Bilateral Throughout] Respiratory 14 14 Rate Respiratory Rate [Bilateral Throughout] Respiratory Rate [Posterior Bilateral Throughout] Blood Pressure 90/39 95/40 O2 Sat by Pulse 98 100 Oximetry Constitutional: alert, other (critically ill on ventilator) Eyes: non-icteric ENT: oropharynx moist Neck: supple Effort: normal Ascultation: Bilateral: rhonchi Cardiovascular: regular rate and rhythm (no mrg) Gastrointestinal: normoactive bowel sounds, soft, non-tender (on o2 vest in place), non-distended Integumentary: normal Extremities: no cyanosis, no edema Neurologic: other (awake) Psychiatric: other (unable to assess) CBC and BMP: 03/08/22 04:34 03/08/22 04:34 ABG, PT/INR, D-dimer: ABG ABG pH 7.411 pH Units (7.350-7.450) 03/02/22 05:18 ABG pCO2 53.2 mm Hg 03/02/22 05:18 ABG pO2 110.5 mm Hg (80.0-90.0) H 03/02/22 05:18 ABG O2 Saturation 97.9 % (95.0-99.0) 03/02/22 05:18 PT/INR, D-dimer PT 16.9 Sec. (12.2-14.9) H 02/18/22 21:02 INR 1.20 (0.87-1.13) H 02/18/22 21:02 Abnormal lab findings: Abnormal Labs 08/02/22 08/02/22 08/02/22 19:34 21:02 21:02 WBC RBC Hgb Hct MCV 101 H MCH 34 H MCHC RDW 16.1 H Lymph % (Auto) [place] % (Auto) 12.4 H Lymph # (Auto) [place] # (Auto) 1.2 H Seg Neutrophils % 73.0 H Seg Neuts % (Manual) Lymphocytes % (Manual) Seg Neutrophils # Seg Neutrophils # Man Lymphocytes # (Manual) PT 16.9 H INR 1.20 H ABG pH ABG pO2 ABG HCO3 ABG O2 Saturation ABG Base Excess ABG Hemoglobin Oxyhemoglobin Sodium Potassium Chloride Carbon Dioxide BUN Creatinine Glucose POC Glucose 116 H Calcium Phosphorus AST ALT Ammonia Albumin 02/18/22 02/18/22 02/18/22 21:02 22:45 23:22 WBC RBC Hgb Hct MCV MCH MCHC RDW Lymph % (Auto) [place] % (Auto) Lymph # (Auto) [place] # (Auto) Seg Neutrophils % Seg Neuts % (Manual) Lymphocytes % (Manual) Seg Neutrophils # Seg Neutrophils # Man Lymphocytes # (Manual) PT INR ABG pH ABG pO2 55.6 L ABG HCO3 28.4 H ABG O2 Saturation 91.5 L ABG Base Excess 3.8 H ABG Hemoglobin 13.2 L Oxyhemoglobin 89.6 L Sodium Potassium 5.1 H Chloride Carbon Dioxide BUN Creatinine Glucose 102 H POC Glucose Calcium Phosphorus AST 48 H ALT 64 H Ammonia 14.0 L Albumin 2.7 L 02/20/22 02/20/22 02/23/22 04:59 04:59 06:29 WBC 11.4 H RBC Hgb Hct MCV 103 H MCH 33 H MCHC RDW 16.5 H Lymph % (Auto) 5.5 L [place] % (Auto) 12.1 H Lymph # (Auto) 0.6 L [place] # (Auto) 1.4 H Seg Neutrophils % 81.4 H Seg Neuts % (Manual) Lymphocytes % (Manual) Seg Neutrophils # 9.2 H Seg Neutrophils # Man Lymphocytes # (Manual) PT INR ABG pH ABG pO2 ABG HCO3 ABG O2 Saturation ABG Base Excess ABG Hemoglobin Oxyhemoglobin Sodium Potassium Chloride Carbon Dioxide BUN Creatinine Glucose POC Glucose 113 H Calcium 8.2 L Phosphorus AST ALT Ammonia Albumin 02/23/22 02/23/22 02/24/22 11:22 16:10 00:02 WBC RBC Hgb Hct MCV MCH MCHC RDW Lymph % (Auto) [place] % (Auto) Lymph # (Auto) [place] # (Auto) Seg Neutrophils % Seg Neuts % (Manual) Lymphocytes % (Manual) Seg Neutrophils # Seg Neutrophils # Man Lymphocytes # (Manual) PT INR ABG pH ABG pO2 ABG HCO3 ABG O2 Saturation ABG Base Excess ABG Hemoglobin Oxyhemoglobin Sodium Potassium Chloride Carbon Dioxide BUN Creatinine Glucose POC Glucose 108 H 115 H 109 H Calcium Phosphorus AST ALT Ammonia Albumin 02/24/22 02/24/22 02/24/22 11:05 11:05 13:20 WBC RBC 3.55 L Hgb Hct MCV 100 H MCH 34 H MCHC RDW 15.6 H Lymph % (Auto) [place] % (Auto) Lymph # (Auto) [place] # (Auto) Seg Neutrophils % Seg Neuts % (Manual) Lymphocytes % (Manual) Seg Neutrophils # Seg Neutrophils # Man Lymphocytes # (Manual) PT INR ABG pH ABG pO2 ABG HCO3 ABG O2 Saturation ABG Base Excess ABG Hemoglobin Oxyhemoglobin Sodium 146 H Potassium 3.2 L D Chloride 108.4 H Carbon Dioxide BUN Creatinine 0.5 L Glucose POC Glucose 111 H Calcium 7.9 L Phosphorus 2.20 L AST ALT Ammonia Albumin 02/24/22 02/24/22 02/24/22 16:30 17:03 20:25 WBC RBC Hgb Hct MCV MCH MCHC RDW Lymph % (Auto) [place] % (Auto) Lymph # (Auto) [place] # (Auto) Seg Neutrophils % Seg Neuts % (Manual) Lymphocytes % (Manual) Seg Neutrophils # Seg Neutrophils # Man Lymphocytes # (Manual) PT INR ABG pH 7.319 L ABG pO2 65.3 L ABG HCO3 31.3 H ABG O2 Saturation 92.2 L ABG Base Excess 3.8 H ABG Hemoglobin 12.0 L Oxyhemoglobin 90.3 L Sodium Potassium Chloride 107.9 H Carbon Dioxide BUN 8 L Creatinine 0.4 L Glucose POC Glucose 108 H Calcium 7.6 L Phosphorus 4.60 H D AST ALT Ammonia Albumin 02/25/22 02/25/22 02/25/22 04:12 04:12 05:05 WBC RBC 3.07 L Hgb 10.2 L Hct 31.5 L MCV 103 H MCH 33 H MCHC RDW 15.6 H Lymph % (Auto) [place] % (Auto) Lymph # (Auto) [place] # (Auto) Seg Neutrophils % Seg Neuts % (Manual) Lymphocytes % (Manual) Seg Neutrophils # Seg Neutrophils # Man Lymphocytes # (Manual) PT INR ABG pH ABG pO2 ABG HCO3 32.5 H ABG O2 Saturation ABG Base Excess 5.6 H ABG Hemoglobin 10.8 L Oxyhemoglobin 94.8 L Sodium Potassium 3.5 L Chloride 107.7 H Carbon Dioxide BUN Creatinine 0.5 L Glucose POC Glucose Calcium 7.0 L Phosphorus AST ALT Ammonia Albumin 02/25/22 02/25/22 02/26/22 12:05 18:33 00:07 WBC RBC Hgb Hct MCV MCH MCHC RDW Lymph % (Auto) [place] % (Auto) Lymph # (Auto) [place] # (Auto) Seg Neutrophils % Seg Neuts % (Manual) Lymphocytes % (Manual) Seg Neutrophils # Seg Neutrophils # Man Lymphocytes # (Manual) PT INR ABG pH ABG pO2 ABG HCO3 ABG O2 Saturation ABG Base Excess ABG Hemoglobin Oxyhemoglobin Sodium Potassium Chloride Carbon Dioxide BUN Creatinine Glucose POC Glucose 127 H 125 H 114 H Calcium Phosphorus AST ALT Ammonia Albumin 02/26/22 02/26/22 02/26/22 03:30 04:42 11:34 WBC RBC Hgb Hct MCV MCH MCHC RDW Lymph % (Auto) [place] % (Auto) Lymph # (Auto) [place] # (Auto) Seg Neutrophils % Seg Neuts % (Manual) Lymphocytes % (Manual) Seg Neutrophils # Seg Neutrophils # Man Lymphocytes # (Manual) PT INR ABG pH ABG pO2 143.2 H ABG HCO3 33.2 H ABG O2 Saturation ABG Base Excess 6.5 H ABG Hemoglobin 9.4 L Oxyhemoglobin Sodium Potassium Chloride Carbon Dioxide 32 H BUN Creatinine 0.7 L Glucose POC Glucose 114 H Calcium 8.0 L Phosphorus AST ALT Ammonia Albumin 02/26/22 02/26/22 02/27/22 18:17 23:37 04:19 WBC 13.7 H RBC 2.78 L Hgb 9.3 L Hct 28.5 L MCV 103 H MCH 33 H MCHC RDW 16.3 H Lymph % (Auto) [place] % (Auto) Lymph # (Auto) [place] # (Auto) Seg Neutrophils % Seg Neuts % (Manual) Lymphocytes % (Manual) Seg Neutrophils # Seg Neutrophils # Man Lymphocytes # (Manual) PT INR ABG pH ABG pO2 ABG HCO3 ABG O2 Saturation ABG Base Excess ABG Hemoglobin Oxyhemoglobin Sodium Potassium Chloride Carbon Dioxide BUN Creatinine Glucose POC Glucose 111 H 117 H Calcium Phosphorus AST ALT Ammonia Albumin 02/27/22 02/27/22 02/27/22 04:19 04:35 05:27 WBC RBC Hgb Hct MCV MCH MCHC RDW Lymph % (Auto) [place] % (Auto) Lymph # (Auto) [place] # (Auto) Seg Neutrophils % Seg Neuts % (Manual) Lymphocytes % (Manual) Seg Neutrophils # Seg Neutrophils # Man Lymphocytes # (Manual) PT INR ABG pH ABG pO2 96.3 H ABG HCO3 34.9 H ABG O2 Saturation ABG Base Excess 8.1 H ABG Hemoglobin Oxyhemoglobin Sodium Potassium Chloride Carbon Dioxide 31 H BUN Creatinine 0.6 L Glucose 107 H POC Glucose 133 H Calcium 7.8 L Phosphorus AST ALT Ammonia Albumin 02/27/22 02/27/22 02/28/22 11:15 23:35 03:38 WBC 13.3 H RBC 3.05 L Hgb 10.2 L Hct 30.7 L MCV 101 H MCH 33 H MCHC RDW 16.1 H Lymph % (Auto) [place] % (Auto) Lymph # (Auto) [place] # (Auto) Seg Neutrophils % Seg Neuts % (Manual) Lymphocytes % (Manual) Seg Neutrophils # Seg Neutrophils # Man Lymphocytes # (Manual) PT INR ABG pH ABG pO2 ABG HCO3 ABG O2 Saturation ABG Base Excess ABG Hemoglobin Oxyhemoglobin Sodium Potassium Chloride Carbon Dioxide BUN Creatinine Glucose POC Glucose 129 H 122 H Calcium Phosphorus AST ALT Ammonia Albumin 02/28/22 02/28/22 02/28/22 04:50 05:30 09:30 WBC RBC Hgb Hct MCV MCH MCHC RDW Lymph % (Auto) [place] % (Auto) Lymph # (Auto) [place] # (Auto) Seg Neutrophils % Seg Neuts % (Manual) Lymphocytes % (Manual) Seg Neutrophils # Seg Neutrophils # Man Lymphocytes # (Manual) PT INR ABG pH 7.451 H 7.488 H ABG pO2 77.0 L ABG HCO3 37.1 H 34.6 H ABG O2 Saturation ABG Base Excess 11.5 H 10.1 H ABG Hemoglobin 10.1 L 10.0 L Oxyhemoglobin Sodium Potassium Chloride Carbon Dioxide BUN Creatinine Glucose POC Glucose 121 H Calcium Phosphorus AST ALT Ammonia Albumin 02/28/22 02/28/2203/01/22 11:36 23:07 04:27 WBC 12.5 H RBC 2.85 L Hgb 9.5 L Hct 28.6 L MCV 101 H MCH 33 H MCHC RDW 15.7 H Lymph % (Auto) [place] % (Auto) Lymph # (Auto) [place] # (Auto) Seg Neutrophils % Seg Neuts % (Manual) Lymphocytes % (Manual) Seg Neutrophils # Seg Neutrophils # Man Lymphocytes # (Manual) PT INR ABG pH ABG pO2 ABG HCO3 ABG O2 Saturation ABG Base Excess ABG Hemoglobin Oxyhemoglobin Sodium Potassium Chloride Carbon Dioxide BUN Creatinine Glucose POC Glucose 112 H 107 H Calcium Phosphorus AST ALT Ammonia Albumin 03/01/22 03/01/22 03/01/22 04:27 05:05 11:29 WBC RBC Hgb Hct MCV MCH MCHC RDW Lymph % (Auto) [place] % (Auto) Lymph # (Auto) [place] # (Auto) Seg Neutrophils % Seg Neuts % (Manual) Lymphocytes % (Manual) Seg Neutrophils # Seg Neutrophils # Man Lymphocytes # (Manual) PT INR ABG pH ABG pO2 ABG HCO3 ABG O2 Saturation ABG Base Excess ABG Hemoglobin Oxyhemoglobin Sodium 147 H D Potassium Chloride Carbon Dioxide 34 H BUN Creatinine 0.6 L Glucose 128 H POC Glucose 119 H 121 H Calcium 7.9 L Phosphorus AST ALT Ammonia Albumin 03/01/22 03/01/22 03/02/22 16:15 23:57 05:18 WBC RBC Hgb Hct MCV MCH MCHC RDW Lymph % (Auto) [place] % (Auto) Lymph # (Auto) [place] # (Auto) Seg Neutrophils % Seg Neuts % (Manual) Lymphocytes % (Manual) Seg Neutrophils # Seg Neutrophils # Man Lymphocytes # (Manual) PT INR ABG pH ABG pO2 110.5 H ABG HCO3 33.0 H ABG O2 Saturation ABG Base Excess 7.4 H ABG Hemoglobin 8.6 L Oxyhemoglobin Sodium Potassium Chloride Carbon Dioxide BUN Creatinine Glucose POC Glucose 134 H 140 H Calcium Phosphorus AST ALT Ammonia Albumin 03/02/22 03/02/22 03/02/22 05:53 09:04 09:04 WBC 15.0 H RBC 3.00 L Hgb 9.7 L Hct 30.7 L MCV 102 H MCH MCHC RDW 16.6 H Lymph % (Auto) [place] % (Auto) Lymph # (Auto) [place] # (Auto) Seg Neutrophils % Seg Neuts % (Manual) Lymphocytes % (Manual) Seg Neutrophils # Seg Neutrophils # Man Lymphocytes # (Manual) PT INR ABG pH ABG pO2 ABG HCO3 ABG O2 Saturation ABG Base Excess ABG Hemoglobin Oxyhemoglobin Sodium Potassium Chloride Carbon Dioxide 31 H BUN Creatinine 0.6 L Glucose 157 H POC Glucose 158 H Calcium 7.9 L Phosphorus AST ALT Ammonia Albumin 03/02/22 03/02/22 03/02/22 11:36 16:25 23:17 WBC RBC Hgb Hct MCV MCH MCHC RDW Lymph % (Auto) [place] % (Auto) Lymph # (Auto) [place] # (Auto) Seg Neutrophils % Seg Neuts % (Manual) Lymphocytes % (Manual) Seg Neutrophils # Seg Neutrophils # Man Lymphocytes # (Manual) PT INR ABG pH ABG pO2 ABG HCO3 ABG O2 Saturation ABG Base Excess ABG Hemoglobin Oxyhemoglobin Sodium Potassium Chloride Carbon Dioxide BUN Creatinine Glucose POC Glucose 160 H 132 H 157 H Calcium Phosphorus AST ALT Ammonia Albumin 03/03/22 03/03/22 03/03/22 03:54 03:54 05:27 WBC 19.5 H RBC 2.79 L Hgb 9.0 L Hct 28.6 L MCV 102 H MCH MCHC RDW 16.2 H Lymph % (Auto) [place] % (Auto) Lymph # (Auto) [place] # (Auto) Seg Neutrophils % Seg Neuts % (Manual) 95.0 H Lymphocytes % (Manual) 3.0 L Seg Neutrophils # Seg Neutrophils # Man 18.5 H Lymphocytes # (Manual) 0.6 L PT INR ABG pH ABG pO2 ABG HCO3 ABG O2 Saturation ABG Base Excess ABG Hemoglobin Oxyhemoglobin Sodium Potassium Chloride Carbon Dioxide BUN Creatinine 0.6 L Glucose 130 H POC Glucose 149 H Calcium 8.1 L Phosphorus AST ALT Ammonia Albumin 03/03/22 03/03/22 03/04/22 11:13 17:30 00:02 WBC RBC Hgb Hct MCV MCH MCHC RDW Lymph % (Auto) [place] % (Auto) Lymph # (Auto) [place] # (Auto) Seg Neutrophils % Seg Neuts % (Manual) Lymphocytes % (Manual) Seg Neutrophils # Seg Neutrophils # Man Lymphocytes # (Manual) PT INR ABG pH ABG pO2 ABG HCO3 ABG O2 Saturation ABG Base Excess ABG Hemoglobin Oxyhemoglobin Sodium Potassium Chloride Carbon Dioxide BUN Creatinine Glucose POC Glucose 139 H 138 H 157 H Calcium Phosphorus AST ALT Ammonia Albumin 03/04/22 03/04/22 03/04/22 05:32 05:32 05:48 WBC 16.1 H RBC 2.81 L Hgb 9.3 L Hct 28.8 L MCV 102 H MCH 33 H MCHC RDW 16.7 H Lymph % (Auto) [place] % (Auto) Lymph # (Auto) [place] # (Auto) Seg Neutrophils % Seg Neuts % (Manual) Lymphocytes % (Manual) Seg Neutrophils # Seg Neutrophils # Man Lymphocytes # (Manual) PT INR ABG pH ABG pO2 ABG HCO3 ABG O2 Saturation ABG Base Excess ABG Hemoglobin Oxyhemoglobin Sodium Potassium Chloride Carbon Dioxide BUN Creatinine 0.7 L Glucose 135 H POC Glucose 145 H Calcium 8.3 L Phosphorus AST ALT Ammonia Albumin 03/04/22 03/04/22 03/05/22 11:34 16:29 00:28 WBC RBC Hgb Hct MCV MCH MCHC RDW Lymph % (Auto) [place] % (Auto) Lymph # (Auto) [place] # (Auto) Seg Neutrophils % Seg Neuts % (Manual) Lymphocytes % (Manual) Seg Neutrophils # Seg Neutrophils # Man Lymphocytes # (Manual) PT INR ABG pH ABG pO2 ABG HCO3 ABG O2 Saturation ABG Base Excess ABG Hemoglobin Oxyhemoglobin Sodium Potassium Chloride Carbon Dioxide BUN Creatinine Glucose POC Glucose 148 H 140 H 116 H Calcium Phosphorus AST ALT Ammonia Albumin 03/05/22 03/05/22 03/05/22 06:29 11:30 17:38 WBC RBC Hgb Hct MCV MCH MCHC RDW Lymph % (Auto) [place] % (Auto) Lymph # (Auto) [place] # (Auto) Seg Neutrophils % Seg Neuts % (Manual) Lymphocytes % (Manual) Seg Neutrophils # Seg Neutrophils # Man Lymphocytes # (Manual) PT INR ABG pH ABG pO2 ABG HCO3 ABG O2 Saturation ABG Base Excess ABG Hemoglobin Oxyhemoglobin Sodium Potassium Chloride Carbon Dioxide BUN Creatinine Glucose POC Glucose 114 H 114 H 117 H Calcium Phosphorus AST ALT Ammonia Albumin 03/06/22 03/06/22 03/06/22 04:17 04:17 06:06 WBC 13.4 H RBC 2.85 L Hgb 9.4 L Hct 29.0 L MCV 102 H MCH 33 H MCHC RDW 16.4 H Lymph % (Auto) [place] % (Auto) Lymph # (Auto) [place] # (Auto) Seg Neutrophils % Seg Neuts % (Manual) Lymphocytes % (Manual) Seg Neutrophils # Seg Neutrophils # Man Lymphocytes # (Manual) PT INR ABG pH ABG pO2 ABG HCO3 ABG O2 Saturation ABG Base Excess ABG Hemoglobin Oxyhemoglobin Sodium Potassium 3.5 L Chloride Carbon Dioxide 31 H BUN Creatinine 0.6 L Glucose 101 H POC Glucose 106 H Calcium 7.7 L Phosphorus 2.00 L AST ALT Ammonia Albumin 03/06/22 03/06/22 03/07/22 18:04 23:50 05:14 WBC RBC Hgb Hct MCV MCH MCHC RDW Lymph % (Auto) [place] % (Auto) Lymph # (Auto) [place] # (Auto) Seg Neutrophils % Seg Neuts % (Manual) Lymphocytes % (Manual) Seg Neutrophils # Seg Neutrophils # Man Lymphocytes # (Manual) PT INR ABG pH ABG pO2 ABG HCO3 ABG O2 Saturation ABG Base Excess ABG Hemoglobin Oxyhemoglobin Sodium Potassium Chloride Carbon Dioxide BUN Creatinine Glucose POC Glucose 108 H 115 H 116 H Calcium Phosphorus AST ALT Ammonia Albumin 03/07/22 03/07/22 03/08/22 11:42 18:13 04:34 WBC RBC 2.86 L Hgb 9.2 L Hct 29.3 L MCV 103 H MCH MCHC 31 L RDW 16.9 H Lymph % (Auto) [place] % (Auto) Lymph # (Auto) [place] # (Auto) Seg Neutrophils % Seg Neuts % (Manual) Lymphocytes % (Manual) Seg Neutrophils # Seg Neutrophils # Man Lymphocytes # (Manual) PT INR ABG pH ABG pO2 ABG HCO3 ABG O2 Saturation ABG Base Excess ABG Hemoglobin Oxyhemoglobin Sodium Potassium Chloride Carbon Dioxide BUN Creatinine Glucose POC Glucose 123 H 109 H Calcium Phosphorus AST ALT Ammonia Albumin 03/08/22 03/08/22 03/08/22 04:34 11:29 16:34 WBC RBC Hgb Hct MCV MCH MCHC RDW Lymph % (Auto) [place] % (Auto) Lymph # (Auto) [place] # (Auto) Seg Neutrophils % Seg Neuts % (Manual) Lymphocytes % (Manual) Seg Neutrophils # Seg Neutrophils # Man Lymphocytes # (Manual) PT INR ABG pH ABG pO2 ABG HCO3 ABG O2 Saturation ABG Base Excess ABG Hemoglobin Oxyhemoglobin Sodium Potassium Chloride Carbon Dioxide 33 H BUN Creatinine 0.5 L Glucose 109 H POC Glucose 117 H 109 H Calcium 7.6 L Phosphorus AST ALT Ammonia Albumin 03/08/22 23:56 WBC RBC Hgb Hct MCV MCH MCHC RDW Lymph % (Auto) [place] % (Auto) Lymph # (Auto) [place] # (Auto) Seg Neutrophils % Seg Neuts % (Manual) Lymphocytes % (Manual) Seg Neutrophils # Seg Neutrophils # Man Lymphocytes # (Manual) PT INR ABG pH ABG pO2 ABG HCO3 ABG O2 Saturation ABG Base Excess ABG Hemoglobin Oxyhemoglobin Sodium Potassium Chloride Carbon Dioxide BUN Creatinine Glucose POC Glucose 106 H Calcium Phosphorus AST ALT Ammonia Albumin Chest x-ray: report reviewed, image reviewed CT scan - chest: report reviewed, image reviewed
[2022-03-09] MEDS: PRAVASTATIN 40 MG TAB FEEDTUBE SCH (21:16)
[2022-03-10] MEDS: ALBUTEROL 2.5 MG/3 ML NEBU IH SCH ×6 (00:40→19:58)
--- NOTE | 2022-03-10 04:04 | XRay Report ---
CHEST 1 VIEW INDICATION / CLINICAL INFORMATION: follow up respiratory failure. COMPARISON: Chest x-ray 03/07/2022 FINDINGS: SUPPORT DEVICES: Stable, satisfactory device positioning. HEART / MEDIASTINUM: Stable interval appearance of the cardiomediastinal silhouette. LUNGS / PLEURA: Mild worsening of opacities mid-lower right lung. Small dependent right pleural effus ion. Slight interval increase in strandy medial left lung base. BONES: No significant osseous abnormality. ADDITIONAL FINDINGS: No significant additional findings. IMPRESSION: 1. Minimal worsening of opacities within the right greater than left lung base. Small dependent right pleural effusion. Signer Name: Lloyd Upton II, MD Signed: 03/10/2022 4:00 AM Workstation Name: [id number]
[2022-03-10 04:18] LABS: Basophils % (Auto) 0.4 % (0.0-1.8); Eosinophils # (Auto) 0.1 K/mm3 (0.0-0.4); Eosinophils % (Auto) 1.4 % (0.0-4.3); Hematocrit 30.3 % (35.5-45.6); Hemoglobin 9.9 gm/dl (11.8-15.2); Lymphocytes # (Auto) 1.3 K/mm3 (1.2-5.4); Lymphocytes % (Auto) 13.3 % (13.4-35.0); Mean Corpuscular HGB Conc 33 % (32-34); Mean Corpuscular Volume 102 fl (84-94); Monocytes # (Auto) 1.3 K/mm3 (0.0-0.8); Monocytes % (Auto) 12.5 % (0.0-7.3); Platelet Count 329 K/mm3 (140-440); Red Blood Count 2.99 M/mm3 (3.65-5.03); Red Cell Distribution Width 16.8 % (13.2-15.2)
[2022-03-10 04:38] LABS: Alanine Aminotransferase 18 units/L (7-56); Albumin 1.9 g/dL (3.9-5); Blood Urea Nitrogen 18 mg/dL (9-20); Calcium 8.1 mg/dL (8.4-10.2); Hemolysis Index 8
[2022-03-10 05:15] LABS: BUN/Creatinine Ratio 30
[2022-03-10 05:41] LABS: ABG Base Excess 7.3 mmol/L (-2.0-3.0); ABG HCO3 31.9 mmol/L (20.0-26.0); ABG Methemoglobin 0.5 % (0.0-1.5); ABG Oxygen Saturation 97.3 % (95.0-99.0); ABG PCO2 45.3 mm Hg; ABG PH 7.465 pH Units (7.350-7.450); ABG PO2 89.4 mm Hg (80.0-90.0)
[2022-03-10] MEDS: LEVOTHYROXINE 25 MCG TAB FEEDTUBE SCH (06:00)
[2022-03-10] MEDS: HEPARIN 5,000 UNIT/1 ML VIAL SUB-Q SCH ×3 (06:00→21:09)
[2022-03-10] MEDS ORDERED: POTASSIUM CHLORIDE 20 MEQ PACKET FEEDTUBE SCH ×2 (10:30→10:44)
--- NOTE | 2022-03-10 10:34 | Progress Note ---
<CARSON ROSS ZiaRadha - Last Filed: 03/10/22 18:23> Assessment and Plan Assessment and plan: This is a 51-year-old male with HTN, seizure disorder, Down syndrome, HLD, partial blindness admitted with aspiration pneumonia, probable bronchogenic carcinoma, acute hypoxic respiratory failure and acute encephalopathy Neuro: Acute encephalopathy, h/o seizure disorder, Down syndrome, partial blindness -fent IVP -Reorientation as needed -Maintain sleep-wake cycle -aspiration/seizure precautions -As needed analgesia -CT head showed no acute abnormality -Continue Keppra Cardiac: Hypotension, h/o HTN, HLD -Cardiology consulted, appreciate recommendations -Blood pressure monitoring per protocol -d/c amlodipine -Midodrine TID Respiratory: Acute hypoxic respiratory failure, r/o bronchogenic carcinoma -CCM consulted, appreciate recommendations -Intubated on 02/24 with a 8.0 at 23 at the lips but extubated 02/28 -reintubated 02/28 with 8.0 OETT -Vent settings: AC rate 14, TV 360, PEEP 6, FO2 30% -See RT notes for titration -VAP bundle -SPO2 monitoring -02/18 CTA chest showed no evidence of pulmonary embolism, suspected bronchogenic carcinoma with associated obstruction of the right lower lobe proximal bronchus segment, 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 adenopathy and suspected to left lower lobe metastatic nodule -02/26 Bronch->mucous, no lesion noted -02/27 CT chest showed right mainstem bronchus patent with small amount of interval bronchial fluid which may be mucus (this may account for the appearance of the prior CTA chest fluid-filled airway rather than entering bronchial lesion), previously seen complete left lower lobe since related to bronchial occlusion has significantly improved, there is persistent compressive atelectasis in the right lower lung secondary to the pleural effusion, bilateral pleural effusions, right lung pneumonia -CT neck showed no acute changes -s/p steroids GI: Moderate protein calorie malnutrition -24 hours -227 mL -PPI -NTR consulted for tube feedings -BR: Senokot S : Hypokalemia -FWF 200 ml q4 hr -Monitor intake and output -Renally dose medications -Avoid nephrotoxic medications -Replete potassium -Trend BMP ID: Aspiration PNA -S/p Rocephin for 5 days (02/19-02/24) -Monitor WBC and temperature curve Endo: NAD -Avoid hypoglycemia -Accu-Cheks every 6 -Avoid hypoglycemia Heme: NAD -Trend CBC -Transfuse hemoglobin less than 7 -SCDs to BLE while in bed The high probability of a clinically significant, sudden or life threatening deterioration of the [resp] system(s) required my full and direct attention, intervention and personal management. The aggregate critical care time was [60] minutes. This time is in addition to time spent performing reported procedures but includes the following: [x] Data Review and interpretation [x] Patient assessment and monitoring of vital signs [x] Documentation [x] Medication orders and management Disposition Plan: icu Total Time Spent with Patient (Minutes): 60 History Interval history: This is a 51-year-old male with HTN, seizure disorder, Down syndrome, HLD, and partial blindness was a resident of the [facility] who presented to emergency department on 02/19 for evaluation of change in mental status. Of note patient was recently discharged a few weeks ago for a seizure disorder and UTI. Upon arrival to the emergency department patient was noted to be hypoxic with SPO2 in the 80s on a nonrebreather with difficulty breathing. Work-up in the emergency department revealed CXR which showed elevation of the right hemidiaphragm, right lower lung atelectasis and effusion with mild increased pulmonary vascularity but no pneumothorax and CT of the head did not show any acute abnormality. 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 Patient was admitted to the hospitalist service to the floor. Hospital course to date: 02/19/2022. Consult pulmonary for further evaluation and possible bronchoscopy. I suspect patient has component of aspiration pneumonia as well. We will obtain a speech therapy evaluation for swallowing and start empiric antibiotics. Continue O2 supplementation to maintain sats greater than 92%. 02/20/2022. Pulmonary feels that the abnormality seen on CT scan is highly unli carey for a mass given negative chest x-ray 1 month ago and no risk factors. Etiology is likely secondary to aspiration from possibly a foreign body most likely food with atelectasis of the right lower lobe. Bronchoscopy is needed in the case to evaluate to see if lung mass is there vs foreign body, but at this time not able to do because no identifiable person that is able to give consent. Continue aspiration precautions and continue speech therapy evaluation for swallowing. Keep n.p.o. for now 02/21/2022. Patient remains NPO. Consider DHT placement. Follow-up with speech therapy evaluation. Pulmonology to consider bronchoscopy if able to obtain consent. Continue IV antibiotics for aspiration pneumonia 02/22/2022. Patient remains NPO. Consider DHT placement. Follow-up with speech therapy evaluation. Pulmonology to consider bronchoscopy if able to obtain consent. Continue IV antibiotics for aspiration pneumonia 02/23/2022. DHT placed yesterday. TF initiated for nutritional support. Patient currently with strict NPO. Aspiration precautions. Pulmonology to consider bronchoscopy if able to obtain consent. Continue IV antibiotics for aspiration pneumonia 02/24: Patient was transferred to the ICU for further monitoring. This morning patient remained on high flow nasal cannula on 40 L/100% and despite repeated nasotracheal suctioning patient SPO2 remained in the 80s. Patient was placed on nonrebreather and SPO2 increased to upper 80s. Patient was subsequently i ntubated by anesthesia. Started on sedation. 02/25: Patient remains sedated on fentanyl, potassium and magnesium repleted. IV fluids and amlodipine discontinued. Possible bronchoscopy tomorrow. 02/26: Patient had a bronchoscopy today which showed mucus and no endobronchial lesions or masses. FiO2 was increased to 100 during and postprocedure weaning as tolerated. Repeat CXR is much improved after bronc. Given 1 L LR bolus due to hypotension. No acute events reported overnight. 02/27: Decreased PEEP, will repeat CT of chest. no acute changes overnight. 02/28: Patient was extubated today however had to be be intubated shortly after. Patient ETT looked mispositioned on x-ray and Dr. Alonzo did do a bedside bronc. Patient was briefly hypotensive and on Levophed postintubation however Levophed was quickly titrated off and patient did not require central line. No acute events reported overnight. Will obtain CT neck d/t difficulty intubating. Ethic committee consulted. 03/01: Overnight patient was hypotensive and started on IVF. Patient started on steroids as no air leak noted and hypotension and given 2 L LR 03/02: Overnight patient received bolus per RN report, no orders seen. Continue supportive care. 03/04: MAIDA overnight. Remains stable on the vent. Awaiting on desicion from ethics community for possible trach and PEG. Continue current supportive measures 03/05: MAIDA overnight. Awaiting on desicion from ethics community for possible trach and PEG. Midodrine held yesterday, HR improved. Continue current supportive measures. Daily PSV trial as tolerated per CCM 03/06: Remains stable on the vent. Continue current supportive measures, daily PSV trial per CCM. Awaiting on desicion for possible trach and PEG. 03/07: MAIDA overnight, remains stable. Continue daily PSV trial as tolerated. Awaiting on desicion for possible trach and PEG. 03/08: Patient failed PSV trial this am due to tachycardia and increase RR. Continue supportive measures and daily PSV trial as tolerated. Possible discussion with ethics and [facility] on Thursday in regards to medical necessity, may need to consider two physician consent if no one is able to claim responsibility for this patient. 03/09: MAIDA overnight. Continue current supportive measures and daily PSV trail as tolerated. Awaiting on desicion for possible trach and PEG, discussion with Ethics possibly tomorrow per [facility]. Hospitalist Physical - Constitutional Vitals: Temp Pulse Resp BP Pulse Ox 98.8 F 73 15 82/41 98 03/10/22 07:13 03/10/22 08:40 03/10/22 08:40 03/10/22 08:00 03/10/22 08:00 General appearance: Present: no acute distress, well-nourished - EENT Eyes: Present: PERRL, EOM intact ENT: poor dentition - Neck Neck: Present: normal ROM - Respiratory Respiratory effort: normal Respiratory: bilateral: CTA, diminished - Cardiovascular Rhythm: regular Heart Sounds: Present: S1 & S2 - Extremities Extremities: no ischemia, pulses intact, pulses symmetrical, No edema, normal temperature, normal color Peripheral Pulses: within normal limits - Abdominal General gastrointestinal: soft, non-tender, normal bowel sounds - Integumentary Integumentary: Present: warm, dry - Psychiatric Psychiatric: other - Neurologic Neurologic: other - Allied Health Allied health notes reviewed: nursing, RT, social work HEART Score - HEART Score Troponin: Troponin T < 0.010 ng/mL (0.00-0.029) 02/18/22 21:02 Results - Labs CBC & Chem 7: 03/10/22 03:57 03/10/22 03:57 Labs: Laboratory Last Values WBC 10.2 K/mm3 (4.5-11.0) 03/10/22 03:57 RBC 2.99 M/mm3 (3.65-5.03) L 03/10/22 03:57 Hgb 9.9 gm/dl (11.8-15.2) L 03/10/22 03:57 Hct 30.3 % (35.5-45.6) L 03/10/22 03:57 MCV 102 fl (84-94) H 03/10/22 03:57 MCH 33 pg (28-32) H 03/10/22 03:57 MCHC 33 % (32-34) 03/10/22 03:57 RDW 16.8 % (13.2-15.2) H 03/10/22 03:57 Plt Count 329 K/mm3 (140-440) 03/10/22 03:57 Lymph % (Auto) 13.3 % (13.4-35.0) L 03/10/22 03:57 [place] % (Auto) 12.5 % (0.0-7.3) H 03/10/22 03:57 Eos % (Auto) 1.4 % (0.0-4.3) 03/10/22 03:57 Baso % (Auto) 0.4 % (0.0-1.8) 03/10/22 03:57 Lymph # (Auto) 1.3 K/mm3 (1.2-5.4) 03/10/22 03:57 [place] # (Auto) 1.3 K/mm3 (0.0-0.8) H 03/10/22 03:57 Eos # (Auto) 0.1 K/mm3 (0.0-0.4) 03/10/22 03:57 Baso # (Auto) 0.0 K/mm3 (0.0-0.1) 03/10/22 03:57 Add Manual Diff Complete 03/03/22 03:54 Total Counted 100 03/03/22 03:54 Seg Neutrophils % 72.4 % (40.0-70.0) H 03/10/22 03:57 Seg Neuts % (Manual) 95.0 % (40.0-70.0) H 03/03/22 03:54 Band Neutrophils % 0 % 03/03/22 03:54 Lymphocytes % (Manual) 3.0 % (13.4-35.0) L 03/03/22 03:54 Reactive Lymphs % (Man) 0 % 03/03/22 03:54 Monocytes % (Manual) 2.0 % (0.0-7.3) 03/03/22 03:54 Eosinophils % (Manual) 0 % (0.0-4.3) 03/03/22 03:54 Basophils % (Manual) 0 % (0.0-1.8) 03/03/22 03:54 Metamyelocytes % 0 % 03/03/22 03:54 Myelocytes % 0 % 03/03/22 03:54 Promyelocytes % 0 % 03/03/22 03:54 Blast Cells % 0 % 03/03/22 03:54 Nucleated RBC % Not Reportable 03/03/22 03:54 Seg Neutrophils # 7.4 K/mm3 (1.8-7.7) 03/10/22 03:57 Seg Neutrophils # Man 18.5 K/mm3 (1.8-7.7) H 03/03/22 03:54 Band Neutrophils # 0.0 K/mm3 03/03/22 03:54 Lymphocytes # (Manual) 0.6 K/mm3 (1.2-5.4) L 03/03/22 03:54 Abs React Lymphs (Man) 0.0 K/mm3 03/03/22 03:54 Monocytes # (Manual) 0.4 K/mm3 (0.0-0.8) 03/03/22 03:54 Eosinophils # (Manual) 0.0 K/mm3 (0.0-0.4) 03/03/22 03:54 Basophils # (Manual) 0.0 K/mm3 (0.0-0.1) 03/03/22 03:54 Metamyelocytes # 0.0 K/mm3 03/03/22 03:54 Myelocytes # 0.0 K/mm3 03/03/22 03:54 Promyelocytes # 0.0 K/mm3 03/03/22 03:54 Blast Cells # 0.0 K/mm3 03/03/22 03:54 WBC Morphology Not Reportable 03/03/22 03:54 Hypersegmented Neuts Not Reportable 03/03/22 03:54 Hyposegmented Neuts Not Reportable 03/03/22 03:54 Hypogranular Neuts Not Reportable 03/03/22 03:54 Smudge Cells Not Reportable 03/03/22 03:54 Toxic Granulation Not Reportable 03/03/22 03:54 Toxic Vacuolation Not Reportable 03/03/22 03:54 Dohle Bodies Not Reportable 03/03/22 03:54 Pelger-Huet Anomaly Not Reportable 03/03/22 03:54 Lakshmi Rods Not Reportable 03/03/22 03:54 Platelet Estimate Consistent w auto 03/03/22 03:54 Clumped Platelets Not Reportable 03/03/22 03:54 Plt Clumps, EDTA Not Reportable 03/03/22 03:54 Large Platelets Not Reportable 03/03/22 03:54 Giant Platelets Not Reportable 03/03/22 03:54 Platelet Satelliting Not Reportable 03/03/22 03:54 Plt Morphology Comment Not Reportable 03/03/22 03:54 RBC Morphology Not Reportable 03/03/22 03:54 Dimorphic RBCs Not Reportable 03/03/22 03:54 Polychromasia Not Reportable 03/03/22 03:54 Hypochromasia Not Reportable 03/03/22 03:54 Poikilocytosis Not Reportable 03/03/22 03:54 Anisocytosis 1+ 03/03/22 03:54 Microcytosis Not Reportable 03/03/22 03:54 Macrocytosis Not Reportable 03/03/22 03:54 Spherocytes Not Reportable 03/03/22 03:54 Pappenheimer Bodies Not Reportable 03/03/22 03:54 Sickle Cells Not Reportable 03/03/22 03:54 Target Cells Not Reportable 03/03/22 03:54 Tear Drop Cells Not Reportable 03/03/22 03:54 Ovalocytes Not Reportable 03/03/22 03:54 Helmet Cells Not Reportable 03/03/22 03:54 [place] Bodies Not Reportable 03/03/22 03:54 [place] Rings Not Reportable 03/03/22 03:54 [place] Cells Not Reportable 03/03/22 03:54 Bite Cells Not Reportable 03/03/22 03:54 Crenated Cell Not Reportable 03/03/22 03:54 Elliptocytes Not Reportable 03/03/22 03:54 Acanthocytes (Spur) Not Reportable 03/03/22 03:54 Rouleaux Not Reportable 03/03/22 03:54 Hemoglobin C Crystals Not Reportable 03/03/22 03:54 Schistocytes Not Reportable 03/03/22 03:54 Malaria parasites Not Reportable 03/03/22 03:54 Cash Bodies Not Reportable 03/03/22 03:54 Hem Pathologist Commnt No 03/03/22 03:54 PT 16.9 Sec. (12.2-14.9) H 02/18/22 21:02 INR 1.20 (0.87-1.13) H 02/18/22 21:02 ABG pH 7.465 pH Units (7.350-7.450) H 03/10/22 04:50 ABG pCO2 45.3 mm Hg 03/10/22 04:50 ABG pO2 89.4 mm Hg (80.0-90.0) 03/10/22 04:50 ABG HCO3 31.9 mmol/L (20.0-26.0) H 03/10/22 04:50 ABG O2 Saturation 97.3 % (95.0-99.0) 03/10/22 04:50 ABG O2 Content 14.9 (0.0-44) 03/10/22 04:50 ABG Base Excess 7.3 mmol/L (-2.0-3.0) H 03/10/22 04:50 ABG Hemoglobin 11.0 gm/dl (14.0-18.0) L 03/10/22 04:50 ABG Carboxyhemoglobin 1.6 % (0.0-5.0) 03/10/22 04:50 ABG Methemoglobin 0.5 % (0.0-1.5) 03/10/22 04:50 Oxyhemoglobin 95.2 % (95.0-99.0) 03/10/22 04:50 FiO2 30 % 03/10/22 04:50 Sodium 137 mmol/L (137-145) 03/10/22 03:57 Potassium 3.4 mmol/L (3.6-5.0) L 03/10/22 03:57 Chloride 101.9 mmol/L (98-107) 03/10/22 03:57 Carbon Dioxide 30 mmol/L (22-30) 03/10/22 03:57 Anion Gap 9 mmol/L 03/10/22 03:57 BUN 18 mg/dL (9-20) 03/10/22 03:57 Creatinine 0.6 mg/dL (0.8-1.3) L 03/10/22 03:57 Estimated GFR > 60 ml/min 03/10/22 03:57 BUN/Creatinine Ratio 30 % 03/10/22 03:57 Glucose 95 mg/dL (75-100) 03/10/22 03:57 POC Glucose 92 mg/dL (70-105) 03/09/22 23:59 Lactic Acid 1.20 mmol/L (0.7-2.0) 02/18/22 21:02 Calcium 8.1 mg/dL (8.4-10.2) L 03/10/22 03:57 Phosphorus 2.00 mg/dL (2.5-4.5) L 03/06/22 04:17 Magnesium 1.90 mg/dL (1.7-2.3) 03/06/22 04:17 Total Bilirubin 0.30 mg/dL (0.1-1.2) 03/10/22 03:57 AST 17 units/L (5-40) 03/10/22 03:57 ALT 18 units/L (7-56) 03/10/22 03:57 Alkaline Phosphatase 89 units/L (35-129) 03/10/22 03:57 Ammonia 14.0 umol/L (25-60) L 02/18/22 23:22 Troponin T < 0.010 ng/mL (0.00-0.029) 02/18/22 21:02 Total Protein 6.6 g/dL (6.3-8.2) 03/10/22 03:57 Albumin 1.9 g/dL (3.9-5) L 03/10/22 03:57 Albumin/Globulin Ratio 0.4 % 03/10/22 03:57 Urine Color Dark yellow (Yellow) 02/18/22 Unknown Urine Turbidity Clear (Clear) 02/18/22 Unknown Urine pH 7.0 (5.0-7.0) 02/18/22 Unknown Ur Specific [place] 1.015 (1.003-1.030) 02/18/22 Unknown Urine Protein <15 mg/dl mg/dL (Negative) 02/18/22 Unknown Urine Glucose (UA) Negative mg/dL (Negative) 02/18/22 Unknown Urine Ketones Negative mg/dL (Negative) 02/18/22 Unknown Urine Blood Trace (Negative) 02/18/22 Unknown Urine Nitrite Negative (Negative) 02/18/22 Unknown Urine Bilirubin Negative (Negative) 02/18/22 Unknown Urine Urobilinogen < 2.0 mg/dL (<2.0) 02/18/22 Unknown Ur Leukocyte Esterase Negative (Negative) 02/18/22 Unknown Urine WBC (Auto) 2.0 /HPF (0.0-6.0) 02/18/22 Unknown Urine RBC (Auto) 9.0 /HPF (0.0-6.0) 02/18/22 Unknown Urine Mucus Few /HPF 02/18/22 Unknown Urine Opiates Screen Negative 02/18/22 Unknown Urine Methadone Screen Negative 02/18/22 Unknown Ur Barbiturates Screen Negative 02/18/22 Unknown Ur Phencyclidine Scrn Negative 02/18/22 Unknown Ur Amphetamines Screen Negative 02/18/22 Unknown U Benzodiazepines Scrn Negative 02/18/22 Unknown Urine Cocaine Screen Negative 02/18/22 Unknown U Marijuana (THC) Screen Negative 02/18/22 Unknown Drugs of Abuse Note Disclamer 02/18/22 Unknown Plasma/Serum Alcohol < 0.01 % (0-0.07) 02/18/22 21:02 Horowitz/IV: Voiding Method Indwelling Catheter Active Medications - Current Medications Current Medications: Generic Name Dose Route Start Last Admin Trade Name Freq PRN Reason Stop Dose Admin Acetaminophen 650 mg 03/03/22 09:00 Acetaminophen 325 Mg/10.15 Ml Oral Liqd Unit Dose FEEDTUBE Q4H PRN Pain, Mild (1-3); TEMP > 100.4 Albuterol 2.5 mg 02/23/22 16:00 03/10/22 08:23 Albuterol 2.5 Mg/3 Ml Nebu IH 2.5 mg Q4HRT LAZARUS Administration Famotidine 20 mg 02/25/22 10:00 03/09/22 21:16 Famotidine 20 Mg Tab FEEDTUBE 20 mg BID LAZARUS Administration Heparin Sodium (Porcine) 5,000 unit 02/19/22 06:00 03/10/22 06:00 Heparin 5,000 Unit/1 Ml Vial SUB-Q 5,000 unit Q8HR LAZARUS Administration Hydrophilic Ointment 1 applic 02/24/22 15:05 Lip Therapy Vaseline TP Q2HR PRN Dry Lips Levetiracetam 500 mg 02/25/22 22:00 03/09/22 21:16 Levetiracetam 500 Mg/5 Ml Oral Liqd FEEDTUBE 500 mg BID LAZARUS Administration Levothyroxine Sodium 25 mcg 02/26/22 06:00 03/10/22 06:00 Levothyroxine 25 Mcg Tab FEEDTUBE 25 mcg QAM@0600 LAZARUS Administration Magnesium Hydroxide 30 ml 02/19/22 02:02 Magnesium Hydroxide (Mom) Oral Liqd Udc PO Q4H PRN Constipation Morphine Sulfate 2 mg 02/19/22 02:02 Morphine 2 Mg/1 Ml Inj IV Q4H PRN Pain, Moderate (4-6) Morphine Sulfate 4 mg 02/19/22 02:02 Morphine 4 Mg/1 Ml Inj IV Q4H PRN Pain , Severe (7-10) Multi-Ingred Cream/Lotion/Oil/Oint 1 applic 02/24/22 15:05 Mineral Oil/Petrolatum, White Ophth Oint 3.5 Gm OU Q4HR PRN Dry Eye(s) Ondansetron HCl 4 mg 02/19/22 02:02 Ondansetron 4 Mg/2 Ml Inj IV Q8H PRN Nausea And Vomiting Potassium Chloride 40 meq 03/10/22 10:30 Potassium Chloride 20 Meq Packet FEEDTUBE 03/10/22 14:30 ONCE@1030 LAZARUS Pravastatin Sodium 40 mg 02/25/22 22:00 03/09/22 21:16 Pravastatin 40 Mg Tab FEEDTUBE 40 mg QHS LAZARUS Administration Senna/Docusate Sodium 1 tab 02/24/22 22:00 03/09/22 21:16 Sennosides/Docusate Sodium 8.6/50 Mg Tab FEEDTUBE 1 tab BID LAZARUS Administration Sodium Chloride 10 ml 02/19/22 10:00 03/09/22 21:17 Sodium Chloride 0.9% 10 Ml Flush Syringe IV 10 ml BID LAZARUS Administration Sodium Chloride 10 ml 02/19/22 02:02 03/03/22 14:21 Sodium Chloride 0.9% 10 Ml Flush Syringe IV 10 ml PRN PRN Administration LINE FLUSH Nutrition/Malnutrition Assess - Dietary Evaluation Nutrition/Malnutrition Findings: Nutrition Notes Start: 02/19/22 14:29 Freq: Status: Active Protocol: Document 03/07/22 14:34 IVAN (Rec: 03/07/22 14:44 IVAN [id number]) Nutrition Notes Initial or Follow up Reassessment Current Diagnosis Hypertension,Respiratory Failure,Hyperlipidemia Other Pertinent Diagnosis Asp pneu, acute encephalopathy , seizure d/o, partial blindness Current Diet TF - Vital AF 1.2 at 50ml/hr Labs/Tests Reviewed Pertinent Medications Reviewed Height 5 ft 3 in Weight 63.2 kg [place] Body Weight (kg) 56.36 BMI 24.7 Weight change and time frame Unable to obtain current wt; bed scale not working - RN aware Weight Status Appropriate Subjective/Other Information Observed TF infusing at goal rate. Pt tolerating TF and remains on vent support. Pt been intubated since 02/24/22 via ETT. Trach/PEG placement pending. Percent of energy/protein needs met: 90% energy 100% pro Burn Absent Trauma Absent #1 Nutrition Diagnosis Inadequate oral intake Diagnosis Progress(for reassessment Continues documentation) Is patient on ventilator? Yes Is Patient Ambulatory and/or Out of Bed No REE-([facility]-confined to bed) [phone] Calculation Used for Recommendations [facility] Additional Notes Pro needs 1.2-2g/k-126g/ day Fluid needs 1ml/kcal Nutrition Intervention Nutrition Support: Continue Vital AF 1.2 at 50ml/ hr with 75ml water flush q4h. Kcal 1,440 Protein (gm) 90 Carbohydrates (gm) 133 Fat (gm) 65 Fluid (mL) 973 Fiber (gm) 6 Goal #1 TF tolerance Goal #2 TF to meet at least 75% energy and pro needs Follow-Up By: 03/14/22 Additional Comments F/U: stable TF, trach/PEG placement, vent status, wt <JOAQUIN ROBIN - Last Filed: 03/10/22 19:11> Assessment and Plan Assessment and plan: I saw and evaluated the patient. I agree with the findings and the plan of care as documented in the Nurse Practitioner's~note, with the following corrections and additions. Hospitalist Physical - Constitutional Vitals: Temp Pulse Resp BP Pulse Ox 97.9 F 81 16 102/51 97 08/22/22 16:36 03/10/22 18:00 03/10/22 18:00 03/10/22 18:00 03/10/22 18:00 HEART Score - HEART Score Troponin: Troponin T < 0.010 ng/mL (0.00-0.029) 02/18/22 21:02 Results - Labs CBC & Chem 7: 03/10/22 03:57 03/10/22 03:57 Labs: Laboratory Last Values WBC 10.2 K/mm3 (4.5-11.0) 03/10/22 03:57 RBC 2.99 M/mm3 (3.65-5.03) L 03/10/22 03:57 Hgb 9.9 gm/dl (11.8-15.2) L 03/10/22 03:57 Hct 30.3 % (35.5-45.6) L 03/10/22 03:57 MCV 102 fl (84-94) H 03/10/22 03:57 MCH 33 pg (28-32) H 03/10/22 03:57 MCHC 33 % (32-34) 03/10/22 03:57 RDW 16.8 % (13.2-15.2) H 03/10/22 03:57 Plt Count 329 K/mm3 (140-440) 03/10/22 03:57 Lymph % (Auto) 13.3 % (13.4-35.0) L 03/10/22 03:57 [place] % (Auto) 12.5 % (0.0-7.3) H 03/10/22 03:57 Eos % (Auto) 1.4 % (0.0-4.3) 03/10/22 03:57 Baso % (Auto) 0.4 % (0.0-1.8) 03/10/22 03:57 Lymph # (Auto) 1.3 K/mm3 (1.2-5.4) 03/10/22 03:57 [place] # (Auto) 1.3 K/mm3 (0.0-0.8) H 03/10/22 03:57 Eos # (Auto) 0.1 K/mm3 (0.0-0.4) 03/10/22 03:57 Baso # (Auto) 0.0 K/mm3 (0.0-0.1) 03/10/22 03:57 Add Manual Diff Complete 03/03/22 03:54 Total Counted 100 03/03/22 03:54 Seg Neutrophils % 72.4 % (40.0-70.0) H 03/10/22 03:57 Seg Neuts % (Manual) 95.0 % (40.0-70.0) H 03/03/22 03:54 Band Neutrophils % 0 % 03/03/22 03:54 Lymphocytes % (Manual) 3.0 % (13.4-35.0) L 03/03/22 03:54 Reactive Lymphs % (Man) 0 % 03/03/22 03:54 Monocytes % (Manual) 2.0 % (0.0-7.3) 03/03/22 03:54 Eosinophils % (Manual) 0 % (0.0-4.3) 03/03/22 03:54 Basophils % (Manual) 0 % (0.0-1.8) 03/03/22 03:54 Metamyelocytes % 0 % 03/03/22 03:54 Myelocytes % 0 % 03/03/22 03:54 Promyelocytes % 0 % 03/03/22 03:54 Blast Cells % 0 % 03/03/22 03:54 Nucleated RBC % Not Reportable 03/03/22 03:54 Seg Neutrophils # 7.4 K/mm3 (1.8-7.7) 03/10/22 03:57 Seg Neutrophils # Man 18.5 K/mm3 (1.8-7.7) H 03/03/22 03:54 Band Neutrophils # 0.0 K/mm3 03/03/22 03:54 Lymphocytes # (Manual) 0.6 K/mm3 (1.2-5.4) L 03/03/22 03:54 Abs React Lymphs (Man) 0.0 K/mm3 03/03/22 03:54 Monocytes # (Manual) 0.4 K/mm3 (0.0-0.8) 03/03/22 03:54 Eosinophils # (Manual) 0.0 K/mm3 (0.0-0.4) 03/03/22 03:54 Basophils # (Manual) 0.0 K/mm3 (0.0-0.1) 03/03/22 03:54 Metamyelocytes # 0.0 K/mm3 03/03/22 03:54 Myelocytes # 0.0 K/mm3 03/03/22 03:54 Promyelocytes # 0.0 K/mm3 03/03/22 03:54 Blast Cells # 0.0 K/mm3 03/03/22 03:54 WBC Morphology Not Reportable 03/03/22 03:54 Hypersegmented Neuts Not Reportable 03/03/22 03:54 Hyposegmented Neuts Not Reportable 03/03/22 03:54 Hypogranular Neuts Not Reportable 03/03/22 03:54 Smudge Cells Not Reportable 03/03/22 03:54 Toxic Granulation Not Reportable 03/03/22 03:54 Toxic Vacuolation Not Reportable 03/03/22 03:54 Dohle Bodies Not Reportable 03/03/22 03:54 Pelger-Huet Anomaly Not Reportable 03/03/22 03:54 Lakshmi Rods Not Reportable 03/03/22 03:54 Platelet Estimate Consistent w auto 03/03/22 03:54 Clumped Platelets Not Reportable 03/03/22 03:54 Plt Clumps, EDTA Not Reportable 03/03/22 03:54 Large Platelets Not Reportable 03/03/22 03:54 Giant Platelets Not Reportable 03/03/22 03:54 Platelet Satelliting Not Reportable 03/03/22 03:54 Plt Morphology Comment Not Reportable 03/03/22 03:54 RBC Morphology Not Reportable 03/03/22 03:54 Dimorphic RBCs Not Reportable 03/03/22 03:54 Polychromasia Not Reportable 03/03/22 03:54 Hypochromasia Not Reportable 03/03/22 03:54 Poikilocytosis Not Reportable 03/03/22 03:54 Anisocytosis 1+ 03/03/22 03:54 Microcytosis Not Reportable 03/03/22 03:54 Macrocytosis Not Reportable 03/03/22 03:54 Spherocytes Not Reportable 03/03/22 03:54 Pappenheimer Bodies Not Reportable 03/03/22 03:54 Sickle Cells Not Reportable 03/03/22 03:54 Target Cells Not Reportable 03/03/22 03:54 Tear Drop Cells Not Reportable 03/03/22 03:54 Ovalocytes Not Reportable 03/03/22 03:54 Helmet Cells Not Reportable 03/03/22 03:54 [place] Bodies Not Reportable 03/03/22 03:54 [place] Rings Not Reportable 03/03/22 03:54 [place] Cells Not Reportable 03/03/22 03:54 Bite Cells Not Reportable 03/03/22 03:54 Crenated Cell Not Reportable 03/03/22 03:54 Elliptocytes Not Reportable 03/03/22 03:54 Acanthocytes (Spur) Not Reportable 03/03/22 03:54 Rouleaux Not Reportable 03/03/22 03:54 Hemoglobin C Crystals Not Reportable 03/03/22 03:54 Schistocytes Not Reportable 03/03/22 03:54 Malaria parasites Not Reportable 03/03/22 03:54 Cash Bodies Not Reportable 03/03/22 03:54 Hem Pathologist Commnt No 03/03/22 03:54 PT 16.9 Sec. (12.2-14.9) H 02/18/22 21:02 INR 1.20 (0.87-1.13) H 02/18/22 21:02 ABG pH 7.465 pH Units (7.350-7.450) H 03/10/22 04:50 ABG pCO2 45.3 mm Hg 03/10/22 04:50 ABG pO2 89.4 mm Hg (80.0-90.0) 03/10/22 04:50 ABG HCO3 31.9 mmol/L (20.0-26.0) H 03/10/22 04:50 ABG O2 Saturation 97.3 % (95.0-99.0) 03/10/22 04:50 ABG O2 Content 14.9 (0.0-44) 03/10/22 04:50 ABG Base Excess 7.3 mmol/L (-2.0-3.0) H 03/10/22 04:50 ABG Hemoglobin 11.0 gm/dl (14.0-18.0) L 03/10/22 04:50 ABG Carboxyhemoglobin 1.6 % (0.0-5.0) 03/10/22 04:50 ABG Methemoglobin 0.5 % (0.0-1.5) 03/10/22 04:50 Oxyhemoglobin 95.2 % (95.0-99.0) 03/10/22 04:50 FiO2 30 % 03/10/22 04:50 Sodium 137 mmol/L (137-145) 03/10/22 03:57 Potassium 3.4 mmol/L (3.6-5.0) L 03/10/22 03:57 Chloride 101.9 mmol/L (98-107) 03/10/22 03:57 Carbon Dioxide 30 mmol/L (22-30) 03/10/22 03:57 Anion Gap 9 mmol/L 03/10/22 03:57 BUN 18 mg/dL (9-20) 03/10/22 03:57 Creatinine 0.6 mg/dL (0.8-1.3) L 03/10/22 03:57 Estimated GFR > 60 ml/min 03/10/22 03:57 BUN/Creatinine Ratio 30 % 03/10/22 03:57 Glucose 95 mg/dL (75-100) 03/10/22 03:57 POC Glucose 115 mg/dL (70-105) H 03/10/22 16:04 Lactic Acid 1.20 mmol/L (0.7-2.0) 02/18/22 21:02 Calcium 8.1 mg/dL (8.4-10.2) L 03/10/22 03:57 Phosphorus 2.00 mg/dL (2.5-4.5) L 03/06/22 04:17 Magnesium 1.90 mg/dL (1.7-2.3) 03/06/22 04:17 Total Bilirubin 0.30 mg/dL (0.1-1.2) 03/10/22 03:57 AST 17 units/L (5-40) 03/10/22 03:57 ALT 18 units/L (7-56) 03/10/22 03:57 Alkaline Phosphatase 89 units/L (35-129) 03/10/22 03:57 Ammonia 14.0 umol/L (25-60) L 02/18/22 23:22 Troponin T < 0.010 ng/mL (0.00-0.029) 02/18/22 21:02 Total Protein 6.6 g/dL (6.3-8.2) 03/10/22 03:57 Albumin 1.9 g/dL (3.9-5) L 03/10/22 03:57 Albumin/Globulin Ratio 0.4 % 03/10/22 03:57 Urine Color Dark yellow (Yellow) 02/18/22 Unknown Urine Turbidity Clear (Clear) 02/18/22 Unknown Urine pH 7.0 (5.0-7.0) 02/18/22 Unknown Ur Specific [place] 1.015 (1.003-1.030) 02/18/22 Unknown Urine Protein <15 mg/dl mg/dL (Negative) 02/18/22 Unknown Urine Glucose (UA) Negative mg/dL (Negative) 02/18/22 Unknown Urine Ketones Negative mg/dL (Negative) 02/18/22 Unknown Urine Blood Trace (Negative) 02/18/22 Unknown Urine Nitrite Negative (Negative) 02/18/22 Unknown Urine Bilirubin Negative (Negative) 02/18/22 Unknown Urine Urobilinogen < 2.0 mg/dL (<2.0) 02/18/22 Unknown Ur Leukocyte Esterase Negative (Negative) 02/18/22 Unknown Urine WBC (Auto) 2.0 /HPF (0.0-6.0) 02/18/22 Unknown Urine RBC (Auto) 9.0 /HPF (0.0-6.0) 02/18/22 Unknown Urine Mucus Few /HPF 02/18/22 Unknown Urine Opiates Screen Negative 02/18/22 Unknown Urine Methadone Screen Negative 02/18/22 Unknown Ur Barbiturates Screen Negative 02/18/22 Unknown Ur Phencyclidine Scrn Negative 02/18/22 Unknown Ur Amphetamines Screen Negative 02/18/22 Unknown U Benzodiazepines Scrn Negative 02/18/22 Unknown Urine Cocaine Screen Negative 02/18/22 Unknown U Marijuana (THC) Screen Negative 02/18/22 Unknown Drugs of Abuse Note Disclamer 02/18/22 Unknown Plasma/Serum Alcohol < 0.01 % (0-0.07) 02/18/22 21:02 Horowitz/IV: Voiding Method Indwelling Catheter Active Medications - Current Medications Current Medications: Generic Name Dose Route Start Last Admin Trade Name Freq PRN Reason Stop Dose Admin Acetaminophen 650 mg 03/03/22 09:00 Acetaminophen 325 Mg/10.15 Ml Oral Liqd Unit Dose FEEDTUBE Q4H PRN Pain, Mild (1-3); TEMP > 100.4 Albuterol 2.5 mg 02/23/22 16:00 03/10/22 16:00 Albuterol 2.5 Mg/3 Ml Nebu IH 2.5 mg Q4HRT LAZARUS Administration Famotidine 20 mg 02/25/22 10:00 03/10/22 10:59 Famotidine 20 Mg Tab FEEDTUBE 20 mg BID LAZARUS Administration Heparin Sodium (Porcine) 5,000 unit 02/19/22 06:00 03/10/22 14:06 Heparin 5,000 Unit/1 Ml Vial SUB-Q 5,000 unit Q8HR LAZARUS Administration Hydrophilic Ointment 1 applic 02/24/22 15:05 Lip Therapy Vaseline TP Q2HR PRN Dry Lips Levetiracetam 500 mg 02/25/22 22:00 03/10/22 10:59 Levetiracetam 500 Mg/5 Ml Oral Liqd FEEDTUBE 500 mg BID LAZARUS Administration Levothyroxine Sodium 25 mcg 02/26/22 06:00 03/10/22 06:00 Levothyroxine 25 Mcg Tab FEEDTUBE 25 mcg QAM@0600 LAZARUS Administration Magnesium Hydroxide 30 ml 02/19/22 02:02 Magnesium Hydroxide (Mom) Oral Liqd Udc PO Q4H PRN Constipation Morphine Sulfate 2 mg 02/19/22 02:02 Morphine 2 Mg/1 Ml Inj IV Q4H PRN Pain, Moderate (4-6) Morphine Sulfate 4 mg 02/19/22 02:02 Morphine 4 Mg/1 Ml Inj IV Q4H PRN Pain , Severe (7-10) Multi-Ingred Cream/Lotion/Oil/Oint 1 applic 02/24/22 15:05 Mineral Oil/Petrolatum, White Ophth Oint 3.5 Gm OU Q4HR PRN Dry Eye(s) Ondansetron HCl 4 mg 02/19/22 02:02 Ondansetron 4 Mg/2 Ml Inj IV Q8H PRN Nausea And Vomiting Pravastatin Sodium 40 mg 02/25/22 22:00 03/09/22 21:16 Pravastatin 40 Mg Tab FEEDTUBE 40 mg QHS LAZARUS Administration Senna/Docusate Sodium 1 tab 02/24/22 22:00 03/10/22 10:59 Sennosides/Docusate Sodium 8.6/50 Mg Tab FEEDTUBE 1 tab BID LAZARUS Administration Sodium Chloride 10 ml 02/19/22 10:00 03/10/22 11:00 Sodium Chloride 0.9% 10 Ml Flush Syringe IV 10 ml BID LAZARUS Administration Sodium Chloride 10 ml 02/19/22 02:02 03/03/22 14:21 Sodium Chloride 0.9% 10 Ml Flush Syringe IV 10 ml PRN PRN Administration LINE FLUSH Nutrition/Malnutrition Assess - Dietary Evaluation Nutrition/Malnutrition Findings: Nutrition Notes Start: 02/19/22 14:29 Freq: Status: Active Protocol: Document 03/07/22 14:34 [email or web address] (Rec: 03/07/22 14:44 [facility] [id number]) Nutrition Notes Initial or Follow up Reassessment Current Diagnosis Hypertension,Respiratory Failure,Hyperlipidemia Other Pertinent Diagnosis Asp pneu, acute encephalopathy , seizure d/o, partial blindness Current Diet TF - Vital AF 1.2 at 50ml/hr Labs/Tests Reviewed Pertinent Medications Reviewed Height 5 ft 3 in Weight 63.2 kg [place] Body Weight (kg) 56.36 BMI 24.7 Weight change and time frame Unable to obtain current wt; bed scale not working - RN aware Weight Status Appropriate Subjective/Other Information Observed TF infusing at goal rate. Pt tolerating TF and remains on vent support. Pt been intubated since 02/24/22 via ETT. Trach/PEG placement pending. Percent of energy/protein needs met: 90% energy 100% pro Burn Absent Trauma Absent #1 Nutrition Diagnosis Inadequate oral intake Diagnosis Progress(for reassessment Continues documentation) Is patient on ventilator? Yes Is Patient Ambulatory and/or Out of Bed No REE-([facility]-confined to bed) [phone] Calculation Used for Recommendations [facility] Additional Notes Pro needs 1.2-2g/k-126g/ day Fluid needs 1ml/kcal Nutrition Intervention Nutrition Support: Continue Vital AF 1.2 at 50ml/ hr with 75ml water flush q4h. Kcal 1,440 Protein (gm) 90 Carbohydrates (gm) 133 Fat (gm) 65 Fluid (mL) 973 Fiber (gm) 6 Goal #1 TF tolerance Goal #2 TF to meet at least 75% energy and pro needs Follow-Up By: 03/14/22 Additional Comments F/U: stable TF, trach/PEG placement, vent status, wt
[2022-03-10] MEDS ORDERED: POTASSIUM PHOSPHATE 30 MMOL in SODIUM CHLORIDE 0.9% 500 ML 500 ML IV ONE (10:40)
--- NOTE | 2022-03-10 10:50 | Progress Note ---
Assessment and Plan 61 y/o male with abnormal CT of chest. 03/10/22: Today nuñez day 14 of intubation. Given patient's mental state and increased risk of aspiration, the likelihood of conventional extubation with success is very very slim and the patient has already failed this in an extremely short period of time (less than 1 hour). I suspect that he will fail again if tried and could create more difficult reintubation as he was a difficult reintubation on his failed extubation attempt. To prevent further decline and potential complications of prolonged mechanical ventilation, will discuss with ethics and the hospital to use 2 physician consent to obtain trach and peg for this patient with hopes of liberating him from the mechanical ventilator. he has very minimal vent requirements but as been stated several times above, he continues to aspirate and failed conventional extubation almost immediately. Will consult surgery today. Dr. Mancia is prepared to sign consent as well as myself. Hopeful surgery will be on board with this. Continue supportive care for now. Attempt daily PSV trials. 03/07/22: Daily PSV trials as tolerated. Still no one to step up as adult friend. patient has now been intubated since 02/24/22 and is approaching the time period in which prolonged mechanical ventilation could lead to significant complications that could be detrimental to health (infection, stenosis, malacia etc). Will discuss again with ethics but in regards to medical necessity, may need to consider two physician consent if no one is able to claim responsibility for this patient. He is a full code and we must work in his best interest to prevent further harm. Continue supportive measures but he is not a candidate for conventional extubation given his mental state, despite being on minimal support. He has already failed this before. 03/06/22: PSV trials daily. Will discuss with RT. Spoke with ethics. Plan in place and awaiting on news from [facility] and state. Continue supportive measures. Patient has been intubated since 02/24/22 and is approaching the 2 week shadi of intubation will need to make decisions soon to avoid unnecessary complications related to prolonged intubation. 03/05/22: Will follow up with ethics today. Awaiting some guidance about consent for trach and peg. This is a medical necessity to liberate patient from mechanical ventilation. Continue supportive measures. Ok with daily PSV trials 03/04/22: Follow up with ethics later this afternoon. Spoke with RT and patient does have cuff leak, will stop steroids. Stopping midodrine as BP is stable and bradycardia likely from this. 03/03/22: Await ethics eval. CM has spoken with state as well. Daily cuff leaks. Will start to wean steroids tomorrow. Midodrine can cause bradycardia. If continues or worsens will stop. Guarded prognosis. 03/02/22: Continue supportive measures. Await ethics consult before surgery consult for trach and peg. no further need for fluid boluses. Will continue stress dose steroids but have daily air leak checks by RT. Still will need trach, will not attempt extubation again. Guarded prognosis. 03/01/22: Patient is having increased urine output. THis could be the cause of new onset hypotension. Will bolus 2 more liters of LR now and reassess. If this continues may need to work up for SIADH including repeat head CT. Follow up ethics review of case. Will need trach for ventilator liberation. Overall prognosis remains guarded. 02/28/22: Will obtain CT neck, noncontrast to look for airway edema or other possible etiologies for failure. Needs ethics consult as given patient's mental state, inability to clear secretions appropriately, will need trach now that he has failed extubation. However he has no family and no POA so no one to give consent. Continue supportive measures. Guarded prognosis. 02/27/22: Continue improvement of oxygenation. Will drop PEEP down today with goal of being at 6 by in the morning. Will repeat CT scan to confirm improvement as no endobronchial lesion was seen, but also to make sure no parenchymal mass. There was no evidence of extrinsic compression during bronch. Likely extubation tomorrow post CT. 02/26/22: Repeat CXR now. Wean Vent as tolerated. Hopeful extubation soon. Mucous removed. NO ENDOBRONCHIAL LESION/MASS 02/25/22: Bronch tentatively planned for tomorrow with therapeutic scope. Awaiting GI lab to give a time. NPO after midnight. Continue high PEEP 02/24/22: WIll attempt to bronch tomorrow morning. NPO after midnight. Just received word from GI lab they are not able to do bronch tomorrow. Cancel NPO order. Continue to feed patient. Repeat ABG in AM along with CXR. 02/21/22: No new pulm recs for today. Please obtain repeat CXR likely on Thursday. If patient happens to get worse, likely not a candidate for bipap given his weak cough and mental state and inability to communicate. If worsens and requires intubation, will bronch then under emergent circumstances if no POA or family is able to be located. Continue CPT. Will discuss with RT about NT suctioning. 02/20/22: Saw speech while on the floor. Would like patient to be NPO now. Discussed with nurse on floor and with IMS. Same recolga [address] as yesterday. Would benefit from bronch if able to get consent as this is not emergent. Continue CPT and q shift NT suctioning. Reviewed admission in the past and of note, patient was recently admitted last month and had a CXR done on the 29 of January that was normal. Given this patient's medical history and the history that I obtained from the nursing staff that at the [facility] he was eating solid foods, I suspect that this is aspiration, possibly of a foreign body (most likely food) with atelectasis of the right lower lobe. It is highly unlikely that a mass evolved in size in less than a months time and patient, besides age, has no real risk factors for lung carcinoma. Discussed with the nurse and unfortunately there is no identifiable person that is able to give consent. Bronchoscopy is needed in the case to evaluate to see if lung mass is there vs foreign body, but at this time not able to do. In the meanwhile will recommend the following. 1. Will order CPT with neb therapy 3x daily 2. Suggest maybe NT suctioning q shift. May use nasal trumpet, however do not leave this device in the patient 3. Aspiration precautions 4. Consider speech eval to assess swallowing. Will continue to follow. CCT 31 minutes. Subjective Date of service: 03/10/22 Principal diagnosis: f/u Acute respiratory failure Interval history: RT had to advance ET tube this am as patient was desatting. Otherwise stable and no acute events. Objective Vital Signs - 12hr 03/09/22 03/09/22 03/10/22 23:00 23:17 00:00 Temperature 98.2 F Pulse Rate 65 64 75 Pulse Rate [ 62 Posterior Bilateral Throughout] Respiratory 14 14 13 Rate Respiratory 15 Rate [Posterior Bilateral Throughout] Blood Pressure 91/46 91/46 91/46 O2 Sat by Pulse 99 99 99 Oximetry 03/10/22 03/10/22 03/10/22 01:01 02:00 03:00 Temperature Pulse Rate 60 52 L 56 L Pulse Rate [ Posterior Bilateral Throughout] Respiratory 14 14 14 Rate Respiratory Rate [Posterior Bilateral Throughout] Blood Pressure 82/35 80/38 93/43 O2 Sat by Pulse 97 98 98 Oximetry 03/10/22 03/10/22 03/10/22 04:00 05:00 06:00 Temperature 98.1 F Pulse Rate 71 66 64 Pulse Rate [ Posterior Bilateral Throughout] Respiratory 15 14 13 Rate Respiratory Rate [Posterior Bilateral Throughout] Blood Pressure 117/57 93/48 96/53 O2 Sat by Pulse 98 95 97 Oximetry 03/10/22 03/10/22 03/10/22 07:00 07:13 08:00 Temperature 98.8 F Pulse Rate 55 L 65 Pulse Rate [ Posterior Bilateral Throughout] Respiratory 14 Rate Respiratory Rate [Posterior Bilateral Throughout] Blood Pressure 90/45 82/41 O2 Sat by Pulse 99 98 Oximetry 03/10/22 08:40 Temperature Pulse Rate Pulse Rate [ 73 Posterior Bilateral Throughout] Respiratory Rate Respiratory 15 Rate [Posterior Bilateral Throughout] Blood Pressure O2 Sat by Pulse Oximetry Constitutional: alert, other (critically ill on ventilator) Eyes: non-icteric ENT: oropharynx moist Neck: supple Effort: normal Ascultation: Bilateral: diminished breath sounds, rhonchi Cardiovascular: regular rate and rhythm (no mrg) Gastrointestinal: normoactive bowel sounds, soft, non-tender (on o2 vest in place), non-distended Integumentary: normal Extremities: no cyanosis, no edema Neurologic: other (awake) Psychiatric: other (unable to assess) CBC and BMP: 03/10/22 03:57 03/10/22 03:57 ABG, PT/INR, D-dimer: ABG ABG pH 7.465 pH Units (7.350-7.450) H 03/10/22 04:50 ABG pCO2 45.3 mm Hg 03/10/22 04:50 ABG pO2 89.4 mm Hg (80.0-90.0) 03/10/22 04:50 ABG O2 Saturation 97.3 % (95.0-99.0) 03/10/22 04:50 PT/INR, D-dimer PT 16.9 Sec. (12.2-14.9) H 02/18/22 21:02 INR 1.20 (0.87-1.13) H 02/18/22 21:02 Abnormal lab findings: Abnormal Labs 02/18/22 02/18/22 02/18/22 19:34 21:02 21:02 WBC RBC Hgb Hct MCV 101 H MCH 34 H MCHC RDW 16.1 H Lymph % (Auto) Terrell % (Auto) 12.4 H Lymph # (Auto) Terrell # (Auto) 1.2 H Seg Neutrophils % 73.0 H Seg Neuts % (Manual) Lymphocytes % (Manual) Seg Neutrophils # Seg Neutrophils # Man Lymphocytes # (Manual) PT 16.9 H INR 1.20 H ABG pH ABG pO2 ABG HCO3 ABG O2 Saturation ABG Base Excess ABG Hemoglobin Oxyhemoglobin Sodium Potassium Chloride Carbon Dioxide BUN Creatinine Glucose POC Glucose 116 H Calcium Phosphorus AST ALT Ammonia Albumin 02/18/22 02/18/22 02/18/22 21:02 22:45 23:22 WBC RBC Hgb Hct MCV MCH MCHC RDW Lymph % (Auto) Terrell % (Auto) Lymph # (Auto) Terrell # (Auto) Seg Neutrophils % Seg Neuts % (Manual) Lymphocytes % (Manual) Seg Neutrophils # Seg Neutrophils # Man Lymphocytes # (Manual) PT INR ABG pH ABG pO2 55.6 L ABG HCO3 28.4 H ABG O2 Saturation 91.5 L ABG Base Excess 3.8 H ABG Hemoglobin 13.2 L Oxyhemoglobin 89.6 L Sodium Potassium 5.1 H Chloride Carbon Dioxide BUN Creatinine Glucose 102 H POC Glucose Calcium Phosphorus AST 48 H ALT 64 H Ammonia 14.0 L Albumin 2.7 L 02/20/22 02/20/22 02/23/22 04:59 04:59 06:29 WBC 11.4 H RBC Hgb Hct MCV 103 H MCH 33 H MCHC RDW 16.5 H Lymph % (Auto) 5.5 L Terrell % (Auto) 12.1 H Lymph # (Auto) 0.6 L Terrell # (Auto) 1.4 H Seg Neutrophils % 81.4 H Seg Neuts % (Manual) Lymphocytes % (Manual) Seg Neutrophils # 9.2 H Seg Neutrophils # Man Lymphocytes # (Manual) PT INR ABG pH ABG pO2 ABG HCO3 ABG O2 Saturation ABG Base Excess ABG Hemoglobin Oxyhemoglobin Sodium Potassium Chloride Carbon Dioxide BUN Creatinine Glucose POC Glucose 113 H Calcium 8.2 L Phosphorus AST ALT Ammonia Albumin 02/23/22 02/23/22 02/24/22 11:22 16:10 00:02 WBC RBC Hgb Hct MCV MCH MCHC RDW Lymph % (Auto) Terrell % (Auto) Lymph # (Auto) Terrell # (Auto) Seg Neutrophils % Seg Neuts % (Manual) Lymphocytes % (Manual) Seg Neutrophils # Seg Neutrophils # Man Lymphocytes # (Manual) PT INR ABG pH ABG pO2 ABG HCO3 ABG O2 Saturation ABG Base Excess ABG Hemoglobin Oxyhemoglobin Sodium Potassium Chloride Carbon Dioxide BUN Creatinine Glucose POC Glucose 108 H 115 H 109 H Calcium Phosphorus AST ALT Ammonia Albumin 02/24/22 02/24/22 02/24/22 11:05 11:05 13:20 WBC RBC 3.55 L Hgb Hct MCV 100 H MCH 34 H MCHC RDW 15.6 H Lymph % (Auto) Terrell % (Auto) Lymph # (Auto) Terrell # (Auto) Seg Neutrophils % Seg Neuts % (Manual) Lymphocytes % (Manual) Seg Neutrophils # Seg Neutrophils # Man Lymphocytes # (Manual) PT INR ABG pH ABG pO2 ABG HCO3 ABG O2 Saturation ABG Base Excess ABG Hemoglobin Oxyhemoglobin Sodium 146 H Potassium 3.2 L D Chloride 108.4 H Carbon Dioxide BUN Creatinine 0.5 L Glucose POC Glucose 111 H Calcium 7.9 L Phosphorus 2.20 L AST ALT Ammonia Albumin 02/24/22 02/24/22 02/24/22 16:30 17:03 20:25 WBC RBC Hgb Hct MCV MCH MCHC RDW Lymph % (Auto) Terrell % (Auto) Lymph # (Auto) Terrell # (Auto) Seg Neutrophils % Seg Neuts % (Manual) Lymphocytes % (Manual) Seg Neutrophils # Seg Neutrophils # Man Lymphocytes # (Manual) PT INR ABG pH 7.319 L ABG pO2 65.3 L ABG HCO3 31.3 H ABG O2 Saturation 92.2 L ABG Base Excess 3.8 H ABG Hemoglobin 12.0 L Oxyhemoglobin 90.3 L Sodium Potassium Chloride 107.9 H Carbon Dioxide BUN 8 L Creatinine 0.4 L Glucose POC Glucose 108 H Calcium 7.6 L Phosphorus 4.60 H D AST ALT Ammonia Albumin 02/25/22 02/25/22 02/25/22 04:12 04:12 05:05 WBC RBC 3.07 L Hgb 10.2 L Hct 31.5 L MCV 103 H MCH 33 H MCHC RDW 15.6 H Lymph % (Auto) Terrell % (Auto) Lymph # (Auto) Terrell # (Auto) Seg Neutrophils % Seg Neuts % (Manual) Lymphocytes % (Manual) Seg Neutrophils # Seg Neutrophils # Man Lymphocytes # (Manual) PT INR ABG pH ABG pO2 ABG HCO3 32.5 H ABG O2 Saturation ABG Base Excess 5.6 H ABG Hemoglobin 10.8 L Oxyhemoglobin 94.8 L Sodium Potassium 3.5 L Chloride 107.7 H Carbon Dioxide BUN Creatinine 0.5 L Glucose POC Glucose Calcium 7.0 L Phosphorus AST ALT Ammonia Albumin 02/25/22 02/25/22 02/26/22 12:05 18:33 00:07 WBC RBC Hgb Hct MCV MCH MCHC RDW Lymph % (Auto) Terrell % (Auto) Lymph # (Auto) Terrell # (Auto) Seg Neutrophils % Seg Neuts % (Manual) Lymphocytes % (Manual) Seg Neutrophils # Seg Neutrophils # Man Lymphocytes # (Manual) PT INR ABG pH ABG pO2 ABG HCO3 ABG O2 Saturation ABG Base Excess ABG Hemoglobin Oxyhemoglobin Sodium Potassium Chloride Carbon Dioxide BUN Creatinine Glucose POC Glucose 127 H 125 H 114 H Calcium Phosphorus AST ALT Ammonia Albumin 02/26/22 02/26/22 02/26/22 03:30 04:42 11:34 WBC RBC Hgb Hct MCV MCH MCHC RDW Lymph % (Auto) Terrell % (Auto) Lymph # (Auto) Terrell # (Auto) Seg Neutrophils % Seg Neuts % (Manual) Lymphocytes % (Manual) Seg Neutrophils # Seg Neutrophils # Man Lymphocytes # (Manual) PT INR ABG pH ABG pO2 143.2 H ABG HCO3 33.2 H ABG O2 Saturation ABG Base Excess 6.5 H ABG Hemoglobin 9.4 L Oxyhemoglobin Sodium Potassium Chloride Carbon Dioxide 32 H BUN Creatinine 0.7 L Glucose POC Glucose 114 H Calcium 8.0 L Phosphorus AST ALT Ammonia Albumin 02/26/22 02/26/22 02/27/22 18:17 23:37 04:19 WBC 13.7 H RBC 2.78 L Hgb 9.3 L Hct 28.5 L MCV 103 H MCH 33 H MCHC RDW 16.3 H Lymph % (Auto) Terrell % (Auto) Lymph # (Auto) Terrell # (Auto) Seg Neutrophils % Seg Neuts % (Manual) Lymphocytes % (Manual) Seg Neutrophils # Seg Neutrophils # Man Lymphocytes # (Manual) PT INR ABG pH ABG pO2 ABG HCO3 ABG O2 Saturation ABG Base Excess ABG Hemoglobin Oxyhemoglobin Sodium Potassium Chloride Carbon Dioxide BUN Creatinine Glucose POC Glucose 111 H 117 H Calcium Phosphorus AST ALT Ammonia Albumin 02/27/22 02/27/22 02/27/22 04:19 04:35 05:27 WBC RBC Hgb Hct MCV MCH MCHC RDW Lymph % (Auto) Terrell % (Auto) Lymph # (Auto) Terrell # (Auto) Seg Neutrophils % Seg Neuts % (Manual) Lymphocytes % (Manual) Seg Neutrophils # Seg Neutrophils # Man Lymphocytes # (Manual) PT INR ABG pH ABG pO2 96.3 H ABG HCO3 34.9 H ABG O2 Saturation ABG Base Excess 8.1 H ABG Hemoglobin Oxyhemoglobin Sodium Potassium Chloride Carbon Dioxide 31 H BUN Creatinine 0.6 L Glucose 107 H POC Glucose 133 H Calcium 7.8 L Phosphorus AST ALT Ammonia Albumin 02/27/22 02/27/22 02/28/22 11:15 23:35 03:38 WBC 13.3 H RBC 3.05 L Hgb 10.2 L Hct 30.7 L MCV 101 H MCH 33 H MCHC RDW 16.1 H Lymph % (Auto) Terrell % (Auto) Lymph # (Auto) Terrell # (Auto) Seg Neutrophils % Seg Neuts % (Manual) Lymphocytes % (Manual) Seg Neutrophils # Seg Neutrophils # Man Lymphocytes # (Manual) PT INR ABG pH ABG pO2 ABG HCO3 ABG O2 Saturation ABG Base Excess ABG Hemoglobin Oxyhemoglobin Sodium Potassium Chloride Carbon Dioxide BUN Creatinine Glucose POC Glucose 129 H 122 H Calcium Phosphorus AST ALT Ammonia Albumin 02/28/22 02/28/22 02/28/22 04:50 05:30 09:30 WBC RBC Hgb Hct MCV MCH MCHC RDW Lymph % (Auto) Terrell % (Auto) Lymph # (Auto) Terrell # (Auto) Seg Neutrophils % Seg Neuts % (Manual) Lymphocytes % (Manual) Seg Neutrophils # Seg Neutrophils # Man Lymphocytes # (Manual) PT INR ABG pH 7.451 H 7.488 H ABG pO2 77.0 L ABG HCO3 37.1 H 34.6 H ABG O2 Saturation ABG Base Excess 11.5 H 10.1 H ABG Hemoglobin 10.1 L 10.0 L Oxyhemoglobin Sodium Potassium Chloride Carbon Dioxide BUN Creatinine Glucose POC Glucose 121 H Calcium Phosphorus AST ALT Ammonia Albumin 02/28/22 02/28/22 03/01/22 11:36 23:07 04:27 WBC 12.5 H RBC 2.85 L Hgb 9.5 L Hct 28.6 L MCV 101 H MCH 33 H MCHC RDW 15.7 H Lymph % (Auto) Terrell % (Auto) Lymph # (Auto) Terrell # (Auto) Seg Neutrophils % Seg Neuts % (Manual) Lymphocytes % (Manual) Seg Neutrophils # Seg Neutrophils # Man Lymphocytes # (Manual) PT INR ABG pH ABG pO2 ABG HCO3 ABG O2 Saturation ABG Base Excess ABG Hemoglobin Oxyhemoglobin Sodium Potassium Chloride Carbon Dioxide BUN Creatinine Glucose POC Glucose 112 H 107 H Calcium Phosphorus AST ALT Ammonia Albumin 03/01/22 03/01/22 03/01/22 04:27 05:05 11:29 WBC RBC Hgb Hct MCV MCH MCHC RDW Lymph % (Auto) Terrell % (Auto) Lymph # (Auto) Terrell # (Auto) Seg Neutrophils % Seg Neuts % (Manual) Lymphocytes % (Manual) Seg Neutrophils # Seg Neutrophils # Man Lymphocytes # (Manual) PT INR ABG pH ABG pO2 ABG HCO3 ABG O2 Saturation ABG Base Excess ABG Hemoglobin Oxyhemoglobin Sodium 147 H D Potassium Chloride Carbon Dioxide 34 H BUN Creatinine 0.6 L Glucose 128 H POC Glucose 119 H 121 H Calcium 7.9 L Phosphorus AST ALT Ammonia Albumin 03/01/22 03/01/22 03/02/22 16:15 23:57 05:18 WBC RBC Hgb Hct MCV MCH MCHC RDW Lymph % (Auto) Terrell % (Auto) Lymph # (Auto) Terrell # (Auto) Seg Neutrophils % Seg Neuts % (Manual) Lymphocytes % (Manual) Seg Neutrophils # Seg Neutrophils # Man Lymphocytes # (Manual) PT INR ABG pH ABG pO2 110.5 H ABG HCO3 33.0 H ABG O2 Saturation ABG Base Excess 7.4 H ABG Hemoglobin 8.6 L Oxyhemoglobin Sodium Potassium Chloride Carbon Dioxide BUN Creatinine Glucose POC Glucose 134 H 140 H Calcium Phosphorus AST ALT Ammonia Albumin 03/02/22 03/02/22 03/02/22 05:53 09:04 09:04 WBC 15.0 H RBC 3.00 L Hgb 9.7 L Hct 30.7 L MCV 102 H MCH MCHC RDW 16.6 H Lymph % (Auto) Terrell % (Auto) Lymph # (Auto) Terrell # (Auto) Seg Neutrophils % Seg Neuts % (Manual) Lymphocytes % (Manual) Seg Neutrophils # Seg Neutrophils # Man Lymphocytes # (Manual) PT INR ABG pH ABG pO2 ABG HCO3 ABG O2 Saturation ABG Base Excess ABG Hemoglobin Oxyhemoglobin Sodium Potassium Chloride Carbon Dioxide 31 H BUN Creatinine 0.6 L Glucose 157 H POC Glucose 158 H Calcium 7.9 L Phosphorus AST ALT Ammonia Albumin 03/02/22 03/02/22 03/02/22 11:36 16:25 23:17 WBC RBC Hgb Hct MCV MCH MCHC RDW Lymph % (Auto) Terrell % (Auto) Lymph # (Auto) Terrell # (Auto) Seg Neutrophils % Seg Neuts % (Manual) Lymphocytes % (Manual) Seg Neutrophils # Seg Neutrophils # Man Lymphocytes # (Manual) PT INR ABG pH ABG pO2 ABG HCO3 ABG O2 Saturation ABG Base Excess ABG Hemoglobin Oxyhemoglobin Sodium Potassium Chloride Carbon Dioxide BUN Creatinine Glucose POC Glucose 160 H 132 H 157 H Calcium Phosphorus AST ALT Ammonia Albumin 03/03/22 03/03/22 03/03/22 03:54 03:54 05:27 WBC 19.5 H RBC 2.79 L Hgb 9.0 L Hct 28.6 L MCV 102 H MCH MCHC RDW 16.2 H Lymph % (Auto) Terrell % (Auto) Lymph # (Auto) Terrell # (Auto) Seg Neutrophils % Seg Neuts % (Manual) 95.0 H Lymphocytes % (Manual) 3.0 L Seg Neutrophils # Seg Neutrophils # Man 18.5 H Lymphocytes # (Manual) 0.6 L PT INR ABG pH ABG pO2 ABG HCO3 ABG O2 Saturation ABG Base Excess ABG Hemoglobin Oxyhemoglobin Sodium Potassium Chloride Carbon Dioxide BUN Creatinine 0.6 L Glucose 130 H POC Glucose 149 H Calcium 8.1 L Phosphorus AST ALT Ammonia Albumin 03/03/22 03/03/22 03/04/22 11:13 17:30 00:02 WBC RBC Hgb Hct MCV MCH MCHC RDW Lymph % (Auto) Terrell % (Auto) Lymph # (Auto) Terrell # (Auto) Seg Neutrophils % Seg Neuts % (Manual) Lymphocytes % (Manual) Seg Neutrophils # Seg Neutrophils # Man Lymphocytes # (Manual) PT INR ABG pH ABG pO2 ABG HCO3 ABG O2 Saturation ABG Base Excess ABG Hemoglobin Oxyhemoglobin Sodium Potassium Chloride Carbon Dioxide BUN Creatinine Glucose POC Glucose 139 H 138 H 157 H Calcium Phosphorus AST ALT Ammonia Albumin 03/04/22 03/04/22 03/04/22 05:32 05:32 05:48 WBC 16.1 H RBC 2.81 L Hgb 9.3 L Hct 28.8 L MCV 102 H MCH 33 H MCHC RDW 16.7 H Lymph % (Auto) Terrell % (Auto) Lymph # (Auto) Terrell # (Auto) Seg Neutrophils % Seg Neuts % (Manual) Lymphocytes % (Manual) Seg Neutrophils # Seg Neutrophils # Man Lymphocytes # (Manual) PT INR ABG pH ABG pO2 ABG HCO3 ABG O2 Saturation ABG Base Excess ABG Hemoglobin Oxyhemoglobin Sodium Potassium Chloride Carbon Dioxide BUN Creatinine 0.7 L Glucose 135 H POC Glucose 145 H Calcium 8.3 L Phosphorus AST ALT Ammonia Albumin 03/04/22 03/04/22 03/05/22 11:34 16:29 00:28 WBC RBC Hgb Hct MCV MCH MCHC RDW Lymph % (Auto) Terrell % (Auto) Lymph # (Auto) Terrell # (Auto) Seg Neutrophils % Seg Neuts % (Manual) Lymphocytes % (Manual) Seg Neutrophils # Seg Neutrophils # Man Lymphocytes # (Manual) PT INR ABG pH ABG pO2 ABG HCO3 ABG O2 Saturation ABG Base Excess ABG Hemoglobin Oxyhemoglobin Sodium Potassium Chloride Carbon Dioxide BUN Creatinine Glucose POC Glucose 148 H 140 H 116 H Calcium Phosphorus AST ALT Ammonia Albumin 03/05/22 03/05/22 03/05/22 06:29 11:30 17:38 WBC RBC Hgb Hct MCV MCH MCHC RDW Lymph % (Auto) Terrell % (Auto) Lymph # (Auto) Terrell # (Auto) Seg Neutrophils % Seg Neuts % (Manual) Lymphocytes % (Manual) Seg Neutrophils # Seg Neutrophils # Man Lymphocytes # (Manual) PT INR ABG pH ABG pO2 ABG HCO3 ABG O2 Saturation ABG Base Excess ABG Hemoglobin Oxyhemoglobin Sodium Potassium Chloride Carbon Dioxide BUN Creatinine Glucose POC Glucose 114 H 114 H 117 H Calcium Phosphorus AST ALT Ammonia Albumin 03/06/22 03/06/22 03/06/22 04:17 04:17 06:06 WBC 13.4 H RBC 2.85 L Hgb 9.4 L Hct 29.0 L MCV 102 H MCH 33 H MCHC RDW 16.4 H Lymph % (Auto) Terrell % (Auto) Lymph # (Auto) Terrell # (Auto) Seg Neutrophils % Seg Neuts % (Manual) Lymphocytes % (Manual) Seg Neutrophils # Seg Neutrophils # Man Lymphocytes # (Manual) PT INR ABG pH ABG pO2 ABG HCO3 ABG O2 Saturation ABG Base Excess ABG Hemoglobin Oxyhemoglobin Sodium Potassium 3.5 L Chloride Carbon Dioxide 31 H BUN Creatinine 0.6 L Glucose 101 H POC Glucose 106 H Calcium 7.7 L Phosphorus 2.00 L AST ALT Ammonia Albumin 03/06/22 03/06/22 03/07/22 18:04 23:50 05:14 WBC RBC Hgb Hct MCV MCH MCHC RDW Lymph % (Auto) Terrell % (Auto) Lymph # (Auto) Terrell # (Auto) Seg Neutrophils % Seg Neuts % (Manual) Lymphocytes % (Manual) Seg Neutrophils # Seg Neutrophils # Man Lymphocytes # (Manual) PT INR ABG pH ABG pO2 ABG HCO3 ABG O2 Saturation ABG Base Excess ABG Hemoglobin Oxyhemoglobin Sodium Potassium Chloride Carbon Dioxide BUN Creatinine Glucose POC Glucose 108 H 115 H 116 H Calcium Phosphorus AST ALT Ammonia Albumin 03/07/22 03/07/22 03/08/22 11:42 18:13 04:34 WBC RBC 2.86 L Hgb 9.2 L Hct 29.3 L MCV 103 H MCH MCHC 31 L RDW 16.9 H Lymph % (Auto) Terrell % (Auto) Lymph # (Auto) Terrell # (Auto) Seg Neutrophils % Seg Neuts % (Manual) Lymphocytes % (Manual) Seg Neutrophils # Seg Neutrophils # Man Lymphocytes # (Manual) PT INR ABG pH ABG pO2 ABG HCO3 ABG O2 Saturation ABG Base Excess ABG Hemoglobin Oxyhemoglobin Sodium Potassium Chloride Carbon Dioxide BUN Creatinine Glucose POC Glucose 123 H 109 H Calcium Phosphorus AST ALT Ammonia Albumin 03/08/22 03/08/22 03/08/22 04:34 11:29 16:34 WBC RBC Hgb Hct MCV MCH MCHC RDW Lymph % (Auto) Terrell % (Auto) Lymph # (Auto) Terrell # (Auto) Seg Neutrophils % Seg Neuts % (Manual) Lymphocytes % (Manual) Seg Neutrophils # Seg Neutrophils # Man Lymphocytes # (Manual) PT INR ABG pH ABG pO2 ABG HCO3 ABG O2 Saturation ABG Base Excess ABG Hemoglobin Oxyhemoglobin Sodium Potassium Chloride Carbon Dioxide 33 H BUN Creatinine 0.5 L Glucose 109 H POC Glucose 117 H 109 H Calcium 7.6 L Phosphorus AST ALT Ammonia Albumin 03/08/22 03/09/22 03/10/22 23:56 11:15 03:57 WBC RBC 2.99 L Hgb 9.9 L Hct 30.3 L MCV 102 H MCH 33 H MCHC RDW 16.8 H Lymph % (Auto) 13.3 L Terrell % (Auto) 12.5 H Lymph # (Auto) Terrell # (Auto) 1.3 H Seg Neutrophils % 72.4 H Seg Neuts % (Manual) Lymphocytes % (Manual) Seg Neutrophils # Seg Neutrophils # Man Lymphocytes # (Manual) PT INR ABG pH ABG pO2 ABG HCO3 ABG O2 Saturation ABG Base Excess ABG Hemoglobin Oxyhemoglobin Sodium Potassium Chloride Carbon Dioxide BUN Creatinine Glucose POC Glucose 106 H 110 H Calcium Phosphorus AST ALT Ammonia Albumin 03/10/22 03/10/22 03:57 04:50 WBC RBC Hgb Hct MCV MCH MCHC RDW Lymph % (Auto) Terrell % (Auto) Lymph # (Auto) Terrell # (Auto) Seg Neutrophils % Seg Neuts % (Manual) Lymphocytes % (Manual) Seg Neutrophils # Seg Neutrophils # Man Lymphocytes # (Manual) PT INR ABG pH 7.465 H ABG pO2 ABG HCO3 31.9 H ABG O2 Saturation ABG Base Excess 7.3 H ABG Hemoglobin 11.0 L Oxyhemoglobin Sodium Potassium 3.4 L Chloride Carbon Dioxide BUN Creatinine 0.6 L Glucose POC Glucose Calcium 8.1 L Phosphorus AST ALT Ammonia Albumin 1.9 L
[2022-03-10] MEDS: levETIRAcetam 500 MG/5 ML ORAL LIQD FEEDTUBE SCH ×2 (10:59→21:09)
[2022-03-10] MEDS: SENNOSIDES/DOCUSATE SODIUM 8.6/50 MG TAB FEEDTUBE SCH ×2 (10:59→21:10)
[2022-03-10] MEDS: FAMOTIDINE 20 MG TAB FEEDTUBE SCH ×2 (10:59→21:09)
--- NOTE | 2022-03-10 12:27 | XRay Report ---
CHEST 1 VIEW 03/10/2022 11:44 AM INDICATION / CLINICAL INFORMATION: trach repositioning. COMPARISON: 03/10/2022, 0329 hours FINDINGS: SUPPORT DEVICES: The tip of the endotracheal tube is positioned approximately 2.6 cm above the colt . Nasogastric tube descends into the stomach. HEART / MEDIASTINUM: Unchanged LUNGS / PLEURA: There are bibasilar airspace opacities which appear unchanged. No pneumothorax. ADDITIONAL FINDINGS: No significant additional findings. IMPRESSION: 1. Tip of endotracheal tube is positioned approximately 2.6 cm above the colt. No significant carney e. Signer Name: Cristobal Auguste MD Signed: 03/10/2022 12:23 PM Workstation Name: [id number]
--- NOTE | 2022-03-10 13:00 | Consultation ---
History of Present Illness Consult date: 03/10/22 Reason for consult: other (vent) Chief complaint: vent dependence - History of present illness History of present illness: 61 yo M with hx of Down's syndrome, HTN, seizures who presents from nursing home to [facility] on 02/18/22 with AMS. Patient was found to have frequent desaturation episodes and unable to follow commands. He was maintained on hi lola O2 but on 02/24/22 was intubated. Patient underwent bronch on 02/26/22 which showed mucous plugging. An attempt was made to extubate the patient on 02/28/22 but he was reintubated shortly thereafter. Patient at high risk for aspiration and reintubation and therefore surgery is consulted for trach and peg. Ethics has been consulted as patient does not have NOK or anyone who can consent for him. No f/c. Past History Past Medical History: hypertension, hypothyroidism, seizures, other ( MR,DOWN SYNDROME, Hyperlipidemia, Partially blind, syncope) Past Surgical History: Other (unknown) Social history: no significant social history Family history: no significant family history Medications and Allergies Allergies Allergy/AdvReac Type Severity Reaction Status Date / Time codeine Allergy Unknown Verified 02/18/22 18:32 Home Medications Medication Instructions Recorded Confirmed Last Taken Type Calcium Carbonate/Vitamin D3 1 each PO QAM 10/07/17 02/19/22 1 Day Ago History [Calcium 600-Vit D3 200 Tablet] ~06/05/20 Docusate Sodium [Stool Softener] 100 mg PO DAILY 10/07/17 02/19/22 01/29/22 History Levothyroxine [Synthroid] 25 mcg PO QAM 10/07/17 02/19/22 01/29/22 History Pravastatin [Pravachol] 40 mg PO QHS 10/07/17 02/19/22 01/29/22 History amLODIPine 2.5 mg PO DAILY 10/07/17 02/19/22 1 Day Ago History ~06/05/20 armodafiniL [Armodafinil] 250 mg PO QAM 03/14/19 02/19/22 1 Day Ago History ~06/05/20 Melatonin [Melatonin 5MG CAP] 5 mg PO DAILY 06/06/20 02/19/22 1 Day Ago History ~06/05/20 Methylphenidate [Ritalin] 20 mg PO BID 1102/19/22 01/29/22 History Mirabegron [Myrbetriq] 50 mg PO QDAY 06/06/20 02/19/22 1 Day Ago History ~06/05/20 Tamsulosin [Flomax] 0.4 mg PO QDAY 01/30/22 02/19/22 01/29/22 History Famotidine [Pepcid] 20 mg PO BID #60 tablet 02/03/22 02/19/22 Unknown Rx cefUROXime [Ceftin] 2 tab PO Q12H #20 02/03/22 02/19/22 Unknown Rx levETIRAcetam [Keppra TAB] 500 mg PO BID #60 tablet 02/03/22 02/19/22 Unknown Rx Active Meds: Active Medications Acetaminophen (Acetaminophen 325 Mg/10.15 Ml Oral Liqd Unit Dose) 650 mg FEEDTUBE Q4H PRN PRN Reason: Pain, Mild (1-3); TEMP > 100.4 Albuterol (Albuterol 2.5 Mg/3 Ml Nebu) 2.5 mg IH Q4HRT [facility] Last Admin: 03/10/22 08:23 Dose: 2.5 mg Famotidine (Famotidine 20 Mg Tab) 20 mg FEEDTUBE BID [facility] Last Admin: 03/10/22 10:59 Dose: 20 mg Heparin Sodium (Porcine) (Heparin 5,000 Unit/1 Ml Vial) 5,000 unit SUB-Q Q8HR [facility] Last Admin: 03/10/22 06:00 Dose: 5,000 unit Hydrophilic Ointment (Lip Therapy Vaseline) 1 applic TP Q2HR PRN PRN Reason: Dry Lips Levetiracetam (Levetiracetam 500 Mg/5 Ml Oral Liqd) 500 mg FEEDTUBE BID [facility] Last Admin: 03/10/22 10:59 Dose: 500 mg Levothyroxine Sodium (Levothyroxine 25 Mcg Tab) 25 mcg FEEDTUBE QAM@0600 [facility] Last Admin: 03/10/22 06:00 Dose: 25 mcg Magnesium Hydroxide (Magnesium Hydroxide (Mom) Oral Liqd Udc) 30 ml PO Q4H PRN PRN Reason: Constipation Morphine Sulfate (Morphine 2 Mg/1 Ml Inj) 2 mg IV Q4H PRN PRN Reason: Pain, Moderate (4-6) Morphine Sulfate (Morphine 4 Mg/1 Ml Inj) 4 mg IV Q4H PRN PRN Reason: Pain , Severe (7-10) Multi-Ingred Cream/Lotion/Oil/Oint (Mineral Oil/Petrolatum, White Ophth Oint 3.5 Gm) 1 applic OU Q4HR PRN PRN Reason: Dry Eye(s) Ondansetron HCl (Ondansetron 4 Mg/2 Ml Inj) 4 mg IV Q8H PRN PRN Reason: Nausea And Vomiting Potassium Chloride (Potassium Chloride 20 Meq Packet) 40 meq FEEDTUBE ONCE [facility] Stop: 03/10/22 15:00 Last Admin: 03/10/22 11:09 Dose: 40 meq Pravastatin Sodium (Pravastatin 40 Mg Tab) 40 mg FEEDTUBE QHS [facility] Last Admin: 03/09/22 21:16 Dose: 40 mg Senna/Docusate Sodium (Sennosides/Docusate Sodium 8.6/50 Mg Tab) 1 tab FEEDTUBE BID [facility] Last Admin: 03/10/22 10:59 Dose: 1 tab Sodium Chloride (Sodium Chloride 0.9% 10 Ml Flush Syringe) 10 ml IV BID [facility] Last Admin: 03/10/22 11:00 Dose: 10 ml Sodium Chloride (Sodium Chloride 0.9% 10 Ml Flush Syringe) 10 ml IV PRN PRN PRN Reason: LINE FLUSH Last Admin: 03/03/22 14:21 Dose: 10 ml Review of Systems ROS unobtainable: due to endotracheal tube, due to mental status Exam Vital Signs Temp Pulse Resp BP Pulse Ox 99.4 F 95 H 16 118/84 98 02/18/22 18:27 02/18/22 18:27 02/18/22 18:27 02/18/22 18:27 02/18/22 18:27 Narrative exam: Gen.: Intubated. Opens eyes to voice but does not follow commands. No apparent distress ENT: Trachea midline. No masses. ETT and NGT in place. No lymphadenopathy. No scleral icterus or conjunctival pallor CV: S1, S2 present Respiratory: No audible wheezes Abdomen: Soft, nondistended, nontender. There is a large left mid to lower quadrant scar. No rebound, rigidity, guarding Extremities: No clubbing, cyanosis, edema Results - Labs 03/10/22 03:57 03/10/22 03:57 Abnormal lab results 03/09/22 03/10/22 03/10/22 Range/Units 11:15 03:57 03:57 RBC 2.99 L (3.65-5.03) M/mm3 Hgb 9.9 L (11.8-15.2) gm/dl Hct 30.3 L (35.5-45.6) % MCV 102 H (84-94) fl MCH 33 H (28-32) pg RDW 16.8 H (13.2-15.2) % Lymph % (Auto) 13.3 L (13.4-35.0) % [place] % (Auto) 12.5 H (0.0-7.3) % [place] # (Auto) 1.3 H (0.0-0.8) K/mm3 Seg Neutrophils % 72.4 H (40.0-70.0) % ABG pH (7.350-7.450) pH Units ABG HCO3 (20.0-26.0) mmol/L ABG Base Excess (-2.0-3.0) mmol/L ABG Hemoglobin (14.0-18.0) gm/dl Potassium 3.4 L (3.6-5.0) mmol/L Creatinine 0.6 L (0.8-1.3) mg/dL POC Glucose 110 H (70-105) mg/dL Calcium 8.1 L (8.4-10.2) mg/dL Albumin 1.9 L (3.9-5) g/dL 03/10/22 Range/Units 04:50 RBC (3.65-5.03) M/mm3 Hgb (11.8-15.2) gm/dl Hct (35.5-45.6) % MCV (84-94) fl MCH (28-32) pg RDW (13.2-15.2) % Lymph % (Auto) (13.4-35.0) % [place] % (Auto) (0.0-7.3) % [place] # (Auto) (0.0-0.8) K/mm3 Seg Neutrophils % (40.0-70.0) % ABG pH 7.465 H (7.350-7.450) pH Units ABG HCO3 31.9 H (20.0-26.0) mmol/L ABG Base Excess 7.3 H (-2.0-3.0) mmol/L ABG Hemoglobin 11.0 L (14.0-18.0) gm/dl Potassium (3.6-5.0) mmol/L Creatinine (0.8-1.3) mg/dL POC Glucose (70-105) mg/dL Calcium (8.4-10.2) mg/dL Albumin (3.9-5) g/dL Diabetes panel 03/10/22 Range/Units 03:57 Sodium 137 (137-145) mmol/L Potassium 3.4 L (3.6-5.0) mmol/L Chloride 101.9 (98-107) mmol/L Carbon Dioxide 30 (22-30) mmol/L BUN 18 (9-20) mg/dL Creatinine 0.6 L (0.8-1.3) mg/dL Glucose 95 (75-100) mg/dL Calcium 8.1 L (8.4-10.2) mg/dL AST 17 (5-40) units/L ALT 18 (7-56) units/L Alkaline Phosphatase 89 (35-129) units/L Total Protein 6.6 (6.3-8.2) g/dL Albumin 1.9 L (3.9-5) g/dL Calcium panel 03/10/22 Range/Units 03:57 Calcium 8.1 L (8.4-10.2) mg/dL Albumin 1.9 L (3.9-5) g/dL Pituitary panel 03/10/22 Range/Units 03:57 Sodium 137 (137-145) mmol/L Potassium 3.4 L (3.6-5.0) mmol/L Chloride 101.9 (98-107) mmol/L Carbon Dioxide 30 (22-30) mmol/L BUN 18 (9-20) mg/dL Creatinine 0.6 L (0.8-1.3) mg/dL Glucose 95 (75-100) mg/dL Calcium 8.1 L (8.4-10.2) mg/dL Adrenal panel 03/10/22 Range/Units 03:57 Sodium 137 (137-145) mmol/L Potassium 3.4 L (3.6-5.0) mmol/L Chloride 101.9 (98-107) mmol/L Carbon Dioxide 30 (22-30) mmol/L BUN 18 (9-20) mg/dL Creatinine 0.6 L (0.8-1.3) mg/dL Glucose 95 (75-100) mg/dL Calcium 8.1 L (8.4-10.2) mg/dL Total Bilirubin 0.30 (0.1-1.2) mg/dL AST 17 (5-40) units/L ALT 18 (7-56) units/L Alkaline Phosphatase 89 (35-129) units/L Total Protein 6.6 (6.3-8.2) g/dL Albumin 1.9 L (3.9-5) g/dL - Imaging Chest x-ray: report reviewed, image reviewed Abdominal x-ray: report reviewed, image reviewed Assessment and Plan 61 yo M with VDRF All pertinent lab and imaging reviewed independently. Vent settings: FIO2 30%, PEEP 6 Plan: 1. Vent management per ICU 2. C/w TF 3. offloading 4. DVT ppx 5. Pt is an appropriate candidate for trach and peg as he is at high risk for aspiration, failed extubation and reintubation. Prolonged intubation can lead to trachomalacia/stenosis and other complications. ICU team, Hospitalist team, and surgical team agreeable that trach/peg is next step in management of this patient. Ethics consulted already. Will need documentation from Ethics committee that 2 physician consent will be appropriate in this situation. Or patient will need state appointment of a guardian prior to proceeding with this non-emergent surgical procedure. Thank you, please call with questions or concerns.
[2022-03-10] MEDS: PRAVASTATIN 40 MG TAB FEEDTUBE SCH (21:09)
[2022-03-11] MEDS: ALBUTEROL 2.5 MG/3 ML NEBU IH SCH ×6 (00:16→20:00)
[2022-03-11 04:46] LABS: Hematocrit 29.1 % (35.5-45.6); Hemoglobin 9.2 gm/dl (11.8-15.2); Mean Corpuscular HGB Conc 32 % (32-34); Mean Corpuscular Volume 103 fl (84-94); Platelet Count 319 K/mm3 (140-440); Red Blood Count 2.81 M/mm3 (3.65-5.03); Red Cell Distribution Width 17.5 % (13.2-15.2)
[2022-03-11 04:57] LABS: Blood Urea Nitrogen 16 mg/dL (9-20); Calcium 7.9 mg/dL (8.4-10.2); Hemolysis Index 24
[2022-03-11 05:02] LABS: INR 1.16 (0.87-1.13)
[2022-03-11 05:05] LABS: BUN/Creatinine Ratio 32
[2022-03-11] MEDS: HEPARIN 5,000 UNIT/1 ML VIAL SUB-Q SCH ×3 (05:30→22:17)
[2022-03-11 05:39] LABS: ABG Base Excess 5.7 mmol/L (-2.0-3.0); ABG HCO3 29.7 mmol/L (20.0-26.0); ABG Methemoglobin 0.5 % (0.0-1.5); ABG Oxygen Saturation 97.1 % (95.0-99.0); ABG PCO2 41.2 mm Hg; ABG PH 7.476 pH Units (7.350-7.450)
[2022-03-11] MEDS: LEVOTHYROXINE 25 MCG TAB FEEDTUBE SCH (05:50)
--- NOTE | 2022-03-11 10:04 | Progress Note ---
Assessment and Plan 61 y/o male with abnormal CT of chest. 03/11/22: hospital now attempting to find emergency guardian to have consent for trach as ethics committee cannot comment on this matter so unable to help. Until then will remain intubated orally. Failed PSV yesterday, will continue to attempt on daily basis. Unfortunate situation. Guarded prognosis. 03/10/22: Today nuñez day 14 of intubation. Given patient's mental state and increased risk of aspiration, the likelihood of conventional extubation with success is very very slim and the patient has already failed this in an extremely short period of time (less than 1 hour). I suspect that he will fail again if tried and could create more difficult reintubation as he was a difficult reintubation on his failed extubation attempt. To prevent further decline and potential complications of prolonged mechanical ventilation, will discuss with ethics and the hospital to use 2 physician consent to obtain trach and peg for this patient with hopes of liberating him from the mechanical vent ilator. he has very minimal vent requirements but as been stated several times above, he continues to aspirate and failed conventional extubation almost immediately. Will consult surgery today. Dr. Mancia is prepared to sign consent as well as myself. Hopeful surgery will be on board with this. Continue supportive care for now. Attempt daily PSV trials. 03/07/22: Daily PSV trials as tolerated. Still no one to step up as adult friend. patient has now been intubated since 02/24/22 and is approaching the time period in which prolonged mechanical ventilation could lead to significant complications that could be detrimental to health (infection, stenosis, malacia etc). Will discuss again with ethics but in regards to medical necessity, may need to consider two physician consent if no one is able to claim responsibility for this patient. He is a full code and we must work in his best interest to prevent further harm. Continue supportive measures but he is not a candidate for conventional extubation given his mental state, despite being on minimal support. He has already failed this before. 03/06/22: PSV trials daily. Will discuss with RT. Spoke with ethics. Plan in place and awaiting on news from [facility] and state. Continue supportive measures. Patient has been intubated since 02/24/22 and is approaching the 2 week shadi of intubation will need to make decisions soon to avoid unnecessary complications related to prolonged intubation. 03/05/22: Will follow up with ethics today. Awaiting some guidance about consent for trach and peg. This is a medical necessity to liberate patient from mechanical ventilation. Continue supportive measures. Ok with daily PSV trials 03/04/22: Follow up with ethics later this afternoon. Spoke with RT and patient does have cuff leak, will stop steroids. Stopping midodrine as BP is stable and bradycardia likely from this. 03/03/22: Await ethics eval. CM has spoken with state as well. Daily cuff leaks. Will start to wean steroids tomorrow. Midodrine can cause bradycardia. If continues or worsens will stop. Guarded prognosis. 03/02/22: Continue supportive measures. Await ethics consult before surgery consult for trach and peg. no further need for fluid boluses. Will continue stress dose steroids but have daily air leak checks by RT. Still will need trach, will not attempt extubation again. Guarded prognosis. 03/01/22: Patient is having increased urine output. THis could be the cause of new onset hypotension. Will bolus 2 more liters of LR now and reassess. If this continues may need to work up for SIADH including repeat head CT. Follow up ethics review of case. Will need trach for ventilator liberation. Overall prognosis remains guarded. 02/28/22: Will obtain CT neck, noncontrast to look for airway edema or other possible etiologies for failure. Needs ethics consult as given patient's mental state, inability to clear secretions appropriately, will need trach now that he has failed extubation. However he has no family and no POA so no one to give consent. Continue supportive measures. Guarded prognosis. 02/27/22: Continue improvement of oxygenation. Will drop PEEP down today with goal of being at 6 by in the morning. Will repeat CT scan to confirm improvement as no endobronchial lesion was seen, but also to make sure no parenchymal mass. There was no evidence of extrinsic compression during bronch. Likely extubation tomorrow post CT. 02/26/22: Repeat CXR now. Wean Vent as tolerated. Hopeful extubation soon. Mucous removed. NO ENDOBRONCHIAL LESION/MASS 02/25/22: Bronch tentatively planned for tomorrow with therapeutic scope. Awaiting GI lab to give a time. NPO after midnight. Continue high PEEP 02/24/22: WIll attempt to bronch tomorrow morning. NPO after midnight. Just received word from GI lab they are not able to do bronch tomorrow. Cancel NPO order. Continue to feed patient. Repeat ABG in AM along with CXR. 02/21/22: No new pulm recs for today. Please obtain repeat CXR likely on Thursday. If patient happens to get worse, likely not a candidate for bipap given his weak cough and mental state and inability to communicate. If worsens and requires intubation, will bronch then under emergent circumstances if no POA or family is able to be located. Continue CPT. Will discuss with RT about NT suctioning. 02/20/22: Saw speech while on the floor. Would like patient to be NPO now. Discussed with nurse on floor and with IMS. Same recs pulm way as yesterday. Would benefit from bronch if able to get consent as this is not emergent. Continue CPT and q shift NT suctioning. Reviewed admission in the past and of note, patient was recently admitted last month and had a CXR done on the 29 of January that was normal. Given this patient's medical history and the history that I obtained from the nursing staff that at the senior care he was eating solid foods, I suspect that this is aspiration, possibly of a foreign body (most likely food) with atelectasis of the right lower lobe. It is highly unlikely that a mass evolved in size in less than a months time and patient, besides age, has no real risk factors for lung carcinoma. Discussed with the nurse and unfortunately there is no identifiable person that is able to give consent. Bronchoscopy is needed in the case to evaluate to see if lung mass is there vs foreign body, but at this time not able to do. In the meanwhile will recommend the following. 1. Will order CPT with neb therapy 3x daily 2. Suggest maybe NT suctioning q shift. May use nasal trumpet, however do not leave this device in the patient 3. Aspiration precautions 4. Consider speech eval to assess swallowing. Will continue to follow. CCT 31 minutes. Subjective Date of service: 03/11/22 Principal diagnosis: f/u Acute respiratory failure Interval history: Not able to have trach without someone official to sign for consent. Pulm status stable on vent. Failed PSV yesterday, became apneic in less than 1 minute. Objective Vital Signs - 12hr 03/10/22 03/11/2222 23:00 00:00 00:17 Temperature 98.9 F Pulse Rate 81 76 66 Pulse Rate [ 70 Bilateral Throughout] Pulse Rate [ 66 Posterior Bilateral Throughout] Respiratory 12 13 Rate Respiratory 14 Rate [Bilateral Throughout] Respiratory 14 Rate [Posterior Bilateral Throughout] Blood Pressure 99/49 123/44 109/50 O2 Sat by Pulse 100 100 97 Oximetry 03/11/22 03/11/22 03/11/22 01:01 02:01 03:00 Temperature Pulse Rate 81 78 75 Pulse Rate [ Bilateral Throughout] Pulse Rate [ Posterior Bilateral Throughout] Respiratory 15 14 15 Rate Respiratory Rate [Bilateral Throughout] Respiratory Rate [Posterior Bilateral Throughout] Blood Pressure 103/54 104/50 96/60 O2 Sat by Pulse 98 95 98 Oximetry 03/11/22 03/11/22 03/11/22 04:00 05:00 06:00 Temperature 98.7 F Pulse Rate 68 60 73 Pulse Rate [ 69 Bilateral Throughout] Pulse Rate [ 70 Posterior Bilateral Throughout] Respiratory 14 14 14 Rate Respiratory 14 Rate [Bilateral Throughout] Respiratory 15 Rate [Posterior Bilateral Throughout] Blood Pressure 101/56 104/50 113/54 O2 Sat by Pulse 100 97 99 Oximetry 03/11/22 03/11/22 07:12 08:00 Temperature 97.9 F Pulse Rate 64 Pulse Rate [ 66 Bilateral Throughout] Pulse Rate [ Posterior Bilateral Throughout] Respiratory Rate Respiratory 14 Rate [Bilateral Throughout] Respiratory Rate [Posterior Bilateral Throughout] Blood Pressure 105/52 O2 Sat by Pulse 100 Oximetry Constitutional: alert, other (critically ill on ventilator) Eyes: non-icteric ENT: oropharynx moist Neck: supple Effort: normal Ascultation: Bilateral: diminished breath sounds, rhonchi Cardiovascular: regular rate and rhythm (no mrg) Gastrointestinal: normoactive bowel sounds, soft, non-tender (on o2 vest in place), non-distended Integumentary: normal Extremities: no cyanosis, no edema Neurologic: other (awake) Psychiatric: other (unable to assess) CBC and BMP: 03/11/22 04:02 03/11/22 04:02 ABG, PT/INR, D-dimer: ABG ABG pH 7.476 pH Units (7.350-7.450) H 03/11/22 05:10 ABG pCO2 41.2 mm Hg 03/11/22 05:10 ABG pO2 84.0 mm Hg (80.0-90.0) 03/11/22 05:10 ABG O2 Saturation 97.1 % (95.0-99.0) 03/11/22 05:10 PT/INR, D-dimer PT 16.2 Sec. (12.2-14.9) H 03/11/22 04:02 INR 1.16 (0.87-1.13) H 03/11/22 04:02 Abnormal lab findings: Abnormal Labs 02/18/22 02/18/22 02/18/22 19:34 21:02 21:02 WBC RBC Hgb Hct MCV 101 H MCH 34 H MCHC RDW 16.1 H Lymph % (Auto) Grady % (Auto) 12.4 H Lymph # (Auto) Grady # (Auto) 1.2 H Seg Neutrophils % 73.0 H Seg Neuts % (Manual) Lymphocytes % (Manual) Seg Neutrophils # Seg Neutrophils # Man Lymphocytes # (Manual) PT 16.9 H INR 1.20 H ABG pH ABG pO2 ABG HCO3 ABG O2 Saturation ABG Base Excess ABG Hemoglobin Oxyhemoglobin Sodium Potassium Chloride Carbon Dioxide BUN Creatinine Glucose POC Glucose 116 H Calcium Phosphorus AST ALT Ammonia Albumin 02/18/22 02/18/22 02/18/22 21:02 22:45 23:22 WBC RBC Hgb Hct MCV MCH MCHC RDW Lymph % (Auto) Grady % (Auto) Lymph # (Auto) Grady # (Auto) Seg Neutrophils % Seg Neuts % (Manual) Lymphocytes % (Manual) Seg Neutrophils # Seg Neutrophils # Man Lymphocytes # (Manual) PT INR ABG pH ABG pO2 55.6 L ABG HCO3 28.4 H ABG O2 Saturation 91.5 L ABG Base Excess 3.8 H ABG Hemoglobin 13.2 L Oxyhemoglobin 89.6 L Sodium Potassium 5.1 H Chloride Carbon Dioxide BUN Creatinine Glucose 102 H POC Glucose Calcium Phosphorus AST 48 H ALT 64 H Ammonia 14.0 L Albumin 2.7 L 02/20/22 02/20/22 02/23/22 04:59 04:59 06:29 WBC 11.4 H RBC Hgb Hct MCV 103 H MCH 33 H MCHC RDW 16.5 H Lymph % (Auto) 5.5 L Grady % (Auto) 12.1 H Lymph # (Auto) 0.6 L Grady # (Auto) 1.4 H Seg Neutrophils % 81.4 H Seg Neuts % (Manual) Lymphocytes % (Manual) Seg Neutrophils # 9.2 H Seg Neutrophils # Man Lymphocytes # (Manual) PT INR ABG pH ABG pO2 ABG HCO3 ABG O2 Saturation ABG Base Excess ABG Hemoglobin Oxyhemoglobin Sodium Potassium Chloride Carbon Dioxide BUN Creatinine Glucose POC Glucose 113 H Calcium 8.2 L Phosphorus AST ALT Ammonia Albumin 02/23/22 02/23/22 02/24/22 11:22 16:10 00:02 WBC RBC Hgb Hct MCV MCH MCHC RDW Lymph % (Auto) Grady % (Auto) Lymph # (Auto) Grady # (Auto) Seg Neutrophils % Seg Neuts % (Manual) Lymphocytes % (Manual) Seg Neutrophils # Seg Neutrophils # Man Lymphocytes # (Manual) PT INR ABG pH ABG pO2 ABG HCO3 ABG O2 Saturation ABG Base Excess ABG Hemoglobin Oxyhemoglobin Sodium Potassium Chloride Carbon Dioxide BUN Creatinine Glucose POC Glucose 108 H 115 H 109 H Calcium Phosphorus AST ALT Ammonia Albumin 02/24/22 02/24/22 02/24/22 11:05 11:05 13:20 WBC RBC 3.55 L Hgb Hct MCV 100 H MCH 34 H MCHC RDW 15.6 H Lymph % (Auto) Grady % (Auto) Lymph # (Auto) Grady # (Auto) Seg Neutrophils % Seg Neuts % (Manual) Lymphocytes % (Manual) Seg Neutrophils # Seg Neutrophils # Man Lymphocytes # (Manual) PT INR ABG pH ABG pO2 ABG HCO3 ABG O2 Saturation ABG Base Excess ABG Hemoglobin Oxyhemoglobin Sodium 146 H Potassium 3.2 L D Chloride 108.4 H Carbon Dioxide BUN Creatinine 0.5 L Glucose POC Glucose 111 H Calcium 7.9 L Phosphorus 2.20 L AST ALT Ammonia Albumin 02/24/22 02/24/22 02/24/22 16:30 17:03 20:25 WBC RBC Hgb Hct MCV MCH MCHC RDW Lymph % (Auto) Grady % (Auto) Lymph # (Auto) Grady # (Auto) Seg Neutrophils % Seg Neuts % (Manual) Lymphocytes % (Manual) Seg Neutrophils # Seg Neutrophils # Man Lymphocytes # (Manual) PT INR ABG pH 7.319 L ABG pO2 65.3 L ABG HCO3 31.3 H ABG O2 Saturation 92.2 L ABG Base Excess 3.8 H ABG Hemoglobin 12.0 L Oxyhemoglobin 90.3 L Sodium Potassium Chloride 107.9 H Carbon Dioxide BUN 8 L Creatinine 0.4 L Glucose POC Glucose 108 H Calcium 7.6 L Phosphorus 4.60 H D AST ALT Ammonia Albumin 02/25/22 02/25/22 02/25/22 04:12 04:12 05:05 WBC RBC 3.07 L Hgb 10.2 L Hct 31.5 L MCV 103 H MCH 33 H MCHC RDW 15.6 H Lymph % (Auto) Grady % (Auto) Lymph # (Auto) Grady # (Auto) Seg Neutrophils % Seg Neuts % (Manual) Lymphocytes % (Manual) Seg Neutrophils # Seg Neutrophils # Man Lymphocytes # (Manual) PT INR ABG pH ABG pO2 ABG HCO3 32.5 H ABG O2 Saturation ABG Base Excess 5.6 H ABG Hemoglobin 10.8 L Oxyhemoglobin 94.8 L Sodium Potassium 3.5 L Chloride 107.7 H Carbon Dioxide BUN Creatinine 0.5 L Glucose POC Glucose Calcium 7.0 L Phosphorus AST ALT Ammonia Albumin 02/25/22 02/25/22 02/26/22 12:05 18:33 00:07 WBC RBC Hgb Hct MCV MCH MCHC RDW Lymph % (Auto) Grady % (Auto) Lymph # (Auto) Grady # (Auto) Seg Neutrophils % Seg Neuts % (Manual) Lymphocytes % (Manual) Seg Neutrophils # Seg Neutrophils # Man Lymphocytes # (Manual) PT INR ABG pH ABG pO2 ABG HCO3 ABG O2 Saturation ABG Base Excess ABG Hemoglobin Oxyhemoglobin Sodium Potassium Chloride Carbon Dioxide BUN Creatinine Glucose POC Glucose 127 H 125 H 114 H Calcium Phosphorus AST ALT Ammonia Albumin 02/26/22 02/26/22 02/26/22 03:30 04:42 11:34 WBC RBC Hgb Hct MCV MCH MCHC RDW Lymph % (Auto) Grady % (Auto) Lymph # (Auto) Grady # (Auto) Seg Neutrophils % Seg Neuts % (Manual) Lymphocytes % (Manual) Seg Neutrophils # Seg Neutrophils # Man Lymphocytes # (Manual) PT INR ABG pH ABG pO2 143.2 H ABG HCO3 33.2 H ABG O2 Saturation ABG Base Excess 6.5 H ABG Hemoglobin 9.4 L Oxyhemoglobin Sodium Potassium Chloride Carbon Dioxide 32 H BUN Creatinine 0.7 L Glucose POC Glucose 114 H Calcium 8.0 L Phosphorus AST ALT Ammonia Albumin 02/26/22 02/26/22 02/27/22 18:17 23:37 04:19 WBC 13.7 H RBC 2.78 L Hgb 9.3 L Hct 28.5 L MCV 103 H MCH 33 H MCHC RDW 16.3 H Lymph % (Auto) Grady % (Auto) Lymph # (Auto) Grady # (Auto) Seg Neutrophils % Seg Neuts % (Manual) Lymphocytes % (Manual) Seg Neutrophils # Seg Neutrophils # Man Lymphocytes # (Manual) PT INR ABG pH ABG pO2 ABG HCO3 ABG O2 Saturation ABG Base Excess ABG Hemoglobin Oxyhemoglobin Sodium Potassium Chloride Carbon Dioxide BUN Creatinine Glucose POC Glucose 111 H 117 H Calcium Phosphorus AST ALT Ammonia Albumin 02/27/22 02/27/22 02/27/22 04:19 04:35 05:27 WBC RBC Hgb Hct MCV MCH MCHC RDW Lymph % (Auto) Grady % (Auto) Lymph # (Auto) Grady # (Auto) Seg Neutrophils % Seg Neuts % (Manual) Lymphocytes % (Manual) Seg Neutrophils # Seg Neutrophils # Man Lymphocytes # (Manual) PT INR ABG pH ABG pO2 96.3 H ABG HCO3 34.9 H ABG O2 Saturation ABG Base Excess 8.1 H ABG Hemoglobin Oxyhemoglobin Sodium Potassium Chloride Carbon Dioxide 31 H BUN Creatinine 0.6 L Glucose 107 H POC Glucose 133 H Calcium 7.8 L Phosphorus AST ALT Ammonia Albumin 02/27/22 02/27/22 02/28/22 11:15 23:35 03:38 WBC 13.3 H RBC 3.05 L Hgb 10.2 L Hct 30.7 L MCV 101 H MCH 33 H MCHC RDW 16.1 H Lymph % (Auto) Grady % (Auto) Lymph # (Auto) Grady # (Auto) Seg Neutrophils % Seg Neuts % (Manual) Lymphocytes % (Manual) Seg Neutrophils # Seg Neutrophils # Man Lymphocytes # (Manual) PT INR ABG pH ABG pO2 ABG HCO3 ABG O2 Saturation ABG Base Excess ABG Hemoglobin Oxyhemoglobin Sodium Potassium Chloride Carbon Dioxide BUN Creatinine Glucose POC Glucose 129 H 122 H Calcium Phosphorus AST ALT Ammonia Albumin 02/28/22 02/28/22 02/28/22 04:50 05:30 09:30 WBC RBC Hgb Hct MCV MCH MCHC RDW Lymph % (Auto) Grady % (Auto) Lymph # (Auto) Grady # (Auto) Seg Neutrophils % Seg Neuts % (Manual) Lymphocytes % (Manual) Seg Neutrophils # Seg Neutrophils # Man Lymphocytes # (Manual) PT INR ABG pH 7.451 H 7.488 H ABG pO2 77.0 L ABG HCO3 37.1 H 34.6 H ABG O2 Saturation ABG Base Excess 11.5 H 10.1 H ABG Hemoglobin 10.1 L 10.0 L Oxyhemoglobin Sodium Potassium Chloride Carbon Dioxide BUN Creatinine Glucose POC Glucose 121 H Calcium Phosphorus AST ALT Ammonia Albumin 02/28/22 02/28/22 03/01/22 11:36 23:07 04:27 WBC 12.5 H RBC 2.85 L Hgb 9.5 L Hct 28.6 L MCV 101 H MCH 33 H MCHC RDW 15.7 H Lymph % (Auto) Grady % (Auto) Lymph # (Auto) Grady # (Auto) Seg Neutrophils % Seg Neuts % (Manual) Lymphocytes % (Manual) Seg Neutrophils # Seg Neutrophils # Man Lymphocytes # (Manual) PT INR ABG pH ABG pO2 ABG HCO3 ABG O2 Saturation ABG Base Excess ABG Hemoglobin Oxyhemoglobin Sodium Potassium Chloride Carbon Dioxide BUN Creatinine Glucose POC Glucose 112 H 107 H Calcium Phosphorus AST ALT Ammonia Albumin 03/01/22 03/01/22 03/01/22 04:27 05:05 11:29 WBC RBC Hgb Hct MCV MCH MCHC RDW Lymph % (Auto) Grady % (Auto) Lymph # (Auto) Grady # (Auto) Seg Neutrophils % Seg Neuts % (Manual) Lymphocytes % (Manual) Seg Neutrophils # Seg Neutrophils # Man Lymphocytes # (Manual) PT INR ABG pH ABG pO2 ABG HCO3 ABG O2 Saturation ABG Base Excess ABG Hemoglobin Oxyhemoglobin Sodium 147 H D Potassium Chloride Carbon Dioxide 34 H BUN Creatinine 0.6 L Glucose 128 H POC Glucose 119 H 121 H Calcium 7.9 L Phosphorus AST ALT Ammonia Albumin 03/01/22 03/01/22 03/02/22 16:15 23:57 05:18 WBC RBC Hgb Hct MCV MCH MCHC RDW Lymph % (Auto) Grady % (Auto) Lymph # (Auto) Grady # (Auto) Seg Neutrophils % Seg Neuts % (Manual) Lymphocytes % (Manual) Seg Neutrophils # Seg Neutrophils # Man Lymphocytes # (Manual) PT INR ABG pH ABG pO2 110.5 H ABG HCO3 33.0 H ABG O2 Saturation ABG Base Excess 7.4 H ABG Hemoglobin 8.6 L Oxyhemoglobin Sodium Potassium Chloride Carbon Dioxide BUN Creatinine Glucose POC Glucose 134 H 140 H Calcium Phosphorus AST ALT Ammonia Albumin 03/02/22 03/02/22 03/02/22 05:53 09:04 09:04 WBC 15.0 H RBC 3.00 L Hgb 9.7 L Hct 30.7 L MCV 102 H MCH MCHC RDW 16.6 H Lymph % (Auto) Grady % (Auto) Lymph # (Auto) Grady # (Auto) Seg Neutrophils % Seg Neuts % (Manual) Lymphocytes % (Manual) Seg Neutrophils # Seg Neutrophils # Man Lymphocytes # (Manual) PT INR ABG pH ABG pO2 ABG HCO3 ABG O2 Saturation ABG Base Excess ABG Hemoglobin Oxyhemoglobin Sodium Potassium Chloride Carbon Dioxide 31 H BUN Creatinine 0.6 L Glucose 157 H POC Glucose 158 H Calcium 7.9 L Phosphorus AST ALT Ammonia Albumin 03/02/22 03/02/22 03/02/22 11:36 16:25 23:17 WBC RBC Hgb Hct MCV MCH MCHC RDW Lymph % (Auto) Grady % (Auto) Lymph # (Auto) Grady # (Auto) Seg Neutrophils % Seg Neuts % (Manual) Lymphocytes % (Manual) Seg Neutrophils # Seg Neutrophils # Man Lymphocytes # (Manual) PT INR ABG pH ABG pO2 ABG HCO3 ABG O2 Saturation ABG Base Excess ABG Hemoglobin Oxyhemoglobin Sodium Potassium Chloride Carbon Dioxide BUN Creatinine Glucose POC Glucose 160 H 132 H 157 H Calcium Phosphorus AST ALT Ammonia Albumin 03/03/22 03/03/22 03/03/22 03:54 03:54 05:27 WBC 19.5 H RBC 2.79 L Hgb 9.0 L Hct 28.6 L MCV 102 H MCH MCHC RDW 16.2 H Lymph % (Auto) Grady % (Auto) Lymph # (Auto) Grady # (Auto) Seg Neutrophils % Seg Neuts % (Manual) 95.0 H Lymphocytes % (Manual) 3.0 L Seg Neutrophils # Seg Neutrophils # Man 18.5 H Lymphocytes # (Manual) 0.6 L PT INR ABG pH ABG pO2 ABG HCO3 ABG O2 Saturation ABG Base Excess ABG Hemoglobin Oxyhemoglobin Sodium Potassium Chloride Carbon Dioxide BUN Creatinine 0.6 L Glucose 130 H POC Glucose 149 H Calcium 8.1 L Phosphorus AST ALT Ammonia Albumin 03/03/22 03/03/22 03/04/22 11:13 17:30 00:02 WBC RBC Hgb Hct MCV MCH MCHC RDW Lymph % (Auto) Grady % (Auto) Lymph # (Auto) Grady # (Auto) Seg Neutrophils % Seg Neuts % (Manual) Lymphocytes % (Manual) Seg Neutrophils # Seg Neutrophils # Man Lymphocytes # (Manual) PT INR ABG pH ABG pO2 ABG HCO3 ABG O2 Saturation ABG Base Excess ABG Hemoglobin Oxyhemoglobin Sodium Potassium Chloride Carbon Dioxide BUN Creatinine Glucose POC Glucose 139 H 138 H 157 H Calcium Phosphorus AST ALT Ammonia Albumin 03/04/22 03/04/22 03/04/22 05:32 05:32 05:48 WBC 16.1 H RBC 2.81 L Hgb 9.3 L Hct 28.8 L MCV 102 H MCH 33 H MCHC RDW 16.7 H Lymph % (Auto) Grady % (Auto) Lymph # (Auto) Grady # (Auto) Seg Neutrophils % Seg Neuts % (Manual) Lymphocytes % (Manual) Seg Neutrophils # Seg Neutrophils # Man Lymphocytes # (Manual) PT INR ABG pH ABG pO2 ABG HCO3 ABG O2 Saturation ABG Base Excess ABG Hemoglobin Oxyhemoglobin Sodium Potassium Chloride Carbon Dioxide BUN Creatinine 0.7 L Glucose 135 H POC Glucose 145 H Calcium 8.3 L Phosphorus AST ALT Ammonia Albumin 03/04/22 03/04/22 03/05/22 11:34 16:29 00:28 WBC RBC Hgb Hct MCV MCH MCHC RDW Lymph % (Auto) Grady % (Auto) Lymph # (Auto) Grady # (Auto) Seg Neutrophils % Seg Neuts % (Manual) Lymphocytes % (Manual) Seg Neutrophils # Seg Neutrophils # Man Lymphocytes # (Manual) PT INR ABG pH ABG pO2 ABG HCO3 ABG O2 Saturation ABG Base Excess ABG Hemoglobin Oxyhemoglobin Sodium Potassium Chloride Carbon Dioxide BUN Creatinine Glucose POC Glucose 148 H 140 H 116 H Calcium Phosphorus AST ALT Ammonia Albumin 03/05/22 03/05/22 03/05/22 06:29 11:30 17:38 WBC RBC Hgb Hct MCV MCH MCHC RDW Lymph % (Auto) Grady % (Auto) Lymph # (Auto) Grady # (Auto) Seg Neutrophils % Seg Neuts % (Manual) Lymphocytes % (Manual) Seg Neutrophils # Seg Neutrophils # Man Lymphocytes # (Manual) PT INR ABG pH ABG pO2 ABG HCO3 ABG O2 Saturation ABG Base Excess ABG Hemoglobin Oxyhemoglobin Sodium Potassium Chloride Carbon Dioxide BUN Creatinine Glucose POC Glucose 114 H 114 H 117 H Calcium Phosphorus AST ALT Ammonia Albumin 03/06/22 03/06/22 03/06/22 04:17 04:17 06:06 WBC 13.4 H RBC 2.85 L Hgb 9.4 L Hct 29.0 L MCV 102 H MCH 33 H MCHC RDW 16.4 H Lymph % (Auto) Grady % (Auto) Lymph # (Auto) Grady # (Auto) Seg Neutrophils % Seg Neuts % (Manual) Lymphocytes % (Manual) Seg Neutrophils # Seg Neutrophils # Man Lymphocytes # (Manual) PT INR ABG pH ABG pO2 ABG HCO3 ABG O2 Saturation ABG Base Excess ABG Hemoglobin Oxyhemoglobin Sodium Potassium 3.5 L Chloride Carbon Dioxide 31 H BUN Creatinine 0.6 L Glucose 101 H POC Glucose 106 H Calcium 7.7 L Phosphorus 2.00 L AST ALT Ammonia Albumin 03/06/22 03/06/22 03/07/22 18:04 23:50 05:14 WBC RBC Hgb Hct MCV MCH MCHC RDW Lymph % (Auto) Grady % (Auto) Lymph # (Auto) Grady # (Auto) Seg Neutrophils % Seg Neuts % (Manual) Lymphocytes % (Manual) Seg Neutrophils # Seg Neutrophils # Man Lymphocytes # (Manual) PT INR ABG pH ABG pO2 ABG HCO3 ABG O2 Saturation ABG Base Excess ABG Hemoglobin Oxyhemoglobin Sodium Potassium Chloride Carbon Dioxide BUN Creatinine Glucose POC Glucose 108 H 115 H 116 H Calcium Phosphorus AST ALT Ammonia Albumin 03/07/22 03/07/22 03/08/22 11:42 18:13 04:34 WBC RBC 2.86 L Hgb 9.2 L Hct 29.3 L MCV 103 H MCH MCHC 31 L RDW 16.9 H Lymph % (Auto) Grady % (Auto) Lymph # (Auto) Grady # (Auto) Seg Neutrophils % Seg Neuts % (Manual) Lymphocytes % (Manual) Seg Neutrophils # Seg Neutrophils # Man Lymphocytes # (Manual) PT INR ABG pH ABG pO2 ABG HCO3 ABG O2 Saturation ABG Base Excess ABG Hemoglobin Oxyhemoglobin Sodium Potassium Chloride Carbon Dioxide BUN Creatinine Glucose POC Glucose 123 H 109 H Calcium Phosphorus AST ALT Ammonia Albumin 03/08/22 03/08/22 03/08/22 04:34 11:29 16:34 WBC RBC Hgb Hct MCV MCH MCHC RDW Lymph % (Auto) Grady % (Auto) Lymph # (Auto) Grady # (Auto) Seg Neutrophils % Seg Neuts % (Manual) Lymphocytes % (Manual) Seg Neutrophils # Seg Neutrophils # Man Lymphocytes # (Manual) PT INR ABG pH ABG pO2 ABG HCO3 ABG O2 Saturation ABG Base Excess ABG Hemoglobin Oxyhemoglobin Sodium Potassium Chloride Carbon Dioxide 33 H BUN Creatinine 0.5 L Glucose 109 H POC Glucose 117 H 109 H Calcium 7.6 L Phosphorus AST ALT Ammonia Albumin 03/08/22 03/09/22 03/10/22 23:56 11:15 03:57 WBC RBC 2.99 L Hgb 9.9 L Hct 30.3 L MCV 102 H MCH 33 H MCHC RDW 16.8 H Lymph % (Auto) 13.3 L Grady % (Auto) 12.5 H Lymph # (Auto) Grady # (Auto) 1.3 H Seg Neutrophils % 72.4 H Seg Neuts % (Manual) Lymphocytes % (Manual) Seg Neutrophils # Seg Neutrophils # Man Lymphocytes # (Manual) PT INR ABG pH ABG pO2 ABG HCO3 ABG O2 Saturation ABG Base Excess ABG Hemoglobin Oxyhemoglobin Sodium Potassium Chloride Carbon Dioxide BUN Creatinine Glucose POC Glucose 106 H 110 H Calcium Phosphorus AST ALT Ammonia Albumin 03/10/22 03/10/22 03/10/22 03:57 04:50 16:04 WBC RBC Hgb Hct MCV MCH MCHC RDW Lymph % (Auto) Grady % (Auto) Lymph # (Auto) Grady # (Auto) Seg Neutrophils % Seg Neuts % (Manual) Lymphocytes % (Manual) Seg Neutrophils # Seg Neutrophils # Man Lymphocytes # (Manual) PT INR ABG pH 7.465 H ABG pO2 ABG HCO3 31.9 H ABG O2 Saturation ABG Base Excess 7.3 H ABG Hemoglobin 11.0 L Oxyhemoglobin Sodium Potassium 3.4 L Chloride Carbon Dioxide BUN Creatinine 0.6 L Glucose POC Glucose 115 H Calcium 8.1 L Phosphorus AST ALT Ammonia Albumin 1.9 L 03/11/22 03/11/22 03/11/22 04:02 04:02 04:02 WBC 12.0 H RBC 2.81 L Hgb 9.2 L Hct 29.1 L MCV 103 H MCH 33 H MCHC RDW 17.5 H Lymph % (Auto) Grady % (Auto) Lymph # (Auto) Grady # (Auto) Seg Neutrophils % Seg Neuts % (Manual) Lymphocytes % (Manual) Seg Neutrophils # Seg Neutrophils # Man Lymphocytes # (Manual) PT 16.2 H INR 1.16 H ABG pH ABG pO2 ABG HCO3 ABG O2 Saturation ABG Base Excess ABG Hemoglobin Oxyhemoglobin Sodium Potassium Chloride Carbon Dioxide BUN Creatinine 0.5 L Glucose 104 H POC Glucose Calcium 7.9 L Phosphorus AST ALT Ammonia Albumin 03/11/22 05:10 WBC RBC Hgb Hct MCV MCH MCHC RDW Lymph % (Auto) Grady % (Auto) Lymph # (Auto) Grady # (Auto) Seg Neutrophils % Seg Neuts % (Manual) Lymphocytes % (Manual) Seg Neutrophils # Seg Neutrophils # Man Lymphocytes # (Manual) PT INR ABG pH 7.476 H ABG pO2 ABG HCO3 29.7 H ABG O2 Saturation ABG Base Excess 5.7 H ABG Hemoglobin 9.1 L Oxyhemoglobin Sodium Potassium Chloride Carbon Dioxide BUN Creatinine Glucose POC Glucose Calcium Phosphorus AST ALT Ammonia Albumin
[2022-03-11] MEDS: levETIRAcetam 500 MG/5 ML ORAL LIQD FEEDTUBE SCH ×2 (10:34→22:16)
[2022-03-11] MEDS: SENNOSIDES/DOCUSATE SODIUM 8.6/50 MG TAB FEEDTUBE SCH ×2 (10:34→22:16)
[2022-03-11] MEDS: FAMOTIDINE 20 MG TAB FEEDTUBE SCH ×2 (10:34→22:16)
--- NOTE | 2022-03-11 12:00 | Progress Note ---
Assessment and Plan Assessment and plan: This is a 51-year-old male with HTN, seizure disorder, Down syndrome, HLD, partial blindness admitted with aspiration pneumonia, probable bronchogenic carcinoma, acute hypoxic respiratory failure and acute encephalopathy Neuro: Acute encephalopathy, h/o seizure disorder, Down syndrome, partial blindness -fent IVP -Reorientation as needed -Maintain sleep-wake cycle -aspiration/seizure precautions -As needed analgesia -CT head showed no acute abnormality -Continue Keppra Cardiac: h/o HTN, HLD -Cardiology consulted, appreciate recommendations -Blood pressure monitoring per protocol -Midodrine TID Respiratory: Acute hypoxic respiratory failure, ruled out bronchogenic carcinoma -CCM consulted, appreciate recommendations -Intubated on 02/24 with a 8.0 at 23 at the lips but extubated 02/28 -reintubated 02/28 with 8.0 OETT -Vent settings: AC rate 14, TV 360, PEEP 6, FO2 30% -See RT notes for titration -VAP bundle -SPO2 monitoring -02/18 CTA chest showed no evidence of pulmonary embolism, suspected bronchogenic carcinoma with associated obstruction of the right lower lobe proximal bronchus segment, 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 adenopathy and suspected to left lower lobe metastatic nodule -02/26 Bronch->mucous, no lesion noted -02/27 CT chest showed right mainstem bronchus patent with small amount of interval bronchial fluid which may be mucus (this may account for the appearance of the prior CTA chest fluid-filled airway rather than entering bronchial lesion), previously seen complete left lower lobe since related to bronchial occlusion has significantly improved, there is persistent compressive atelectasis in the right lower lung secondary to the pleural effusion, bilateral pleural effusions, right lung pneumonia -CT neck showed no acute changes -s/p steroids GI: Moderate protein calorie malnutrition -24 hours -895 mL -PPI -NTR consulted for tube feedings -BR: Senokot S : NAD -Monitor intake and output -Renally dose medications -Avoid nephrotoxic medications -Trend BMP ID: Aspiration PNA (resolved) -S/p Rocephin for 5 days (02/19-02/24) -Monitor WBC and temperature curve Endo: NAD -Avoid hypoglycemia -Accu-Cheks every 6 -Avoid hypoglycemia Heme: NAD -Trend CBC -Transfuse hemoglobin less than 7 -SCDs to BLE while in bed The high probability of a clinically significant, sudden or life threatening deterioration of the [resp] system(s) required my full and direct attention, intervention and personal management. The aggregate critical care time was [60] minutes. This time is in addition to time spent performing reported procedures but includes the following: [x] Data Review and interpretation [x] Patient assessment and monitoring of vital signs [x] Documentation [x] Medication orders and management Disposition Plan: icu Total Time Spent with Patient (Minutes): 60 History Interval history: This is a 51-year-old male with HTN, seizure disorder, Down syndrome, HLD, and partial blindness was a resident of the [facility] who presented to emergency department on 02/19 for evaluation of change in mental status. Of note patient was recently discharged a few weeks ago for a seizure disorder and UTI. Upon arrival to the emergency department patient was noted to be hypoxic with SPO2 in the 80s on a nonrebreather with difficulty breathing. Work-up in the emergency department revealed CXR which showed elevation of the right hemidiaphragm, right lower lung atelectasis and effusion with mild increased pulmonary vascularity but no pneumothorax and CT of the head did not show any acute abnormality. 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 Patient was admitted to the hospitalist service to the floor. Hospital course to date: 02/19/2022. Consult pulmonary for further evaluation and possible bronchoscopy. I suspect patient has component of aspiration pneumonia as well. We will obtain a speech therapy evaluation for swallowing and start empiric antibiotics. Continue O2 supplementation to maintain sats greater than 92%. 02/20/2022. Pulmonary feels that the abnormality seen on CT scan is highly unlikely for a mass given negative chest x-ray 1 month ago and no risk factors. Etiology is likely secondary to aspiration from possibly a foreign body most likely food with atelectasis of the right lower lobe. Bronchoscopy is needed in the case to evaluate to see if lung mass is there vs foreign body, but at this time not able to do because no identifiable person that is able to give consent. Continue aspiration precautions and continue speech therapy evaluation for swallowing. Keep n.p.o. for now 02/21/2022. Patient remains NPO. Consider DHT placement. Follow-up with speech therapy evaluation. Pulmonology to consider bronchoscopy if able to obtain consent. Continue IV antibiotics for aspiration pneumonia 02/22/2022. Patient remains NPO. Consider DHT placement. Follow-up with speech therapy evaluation. Pulmonology to consider bronchoscopy if able to obtain consent. Continue IV antibiotics for aspiration pneumonia 02/23/2022. DHT placed yesterday. TF initiated for nutritional support. Patient currently with strict NPO. Aspiration precautions. Pulmonology to consider bronchoscopy if able to obtain consent. Continue IV antibiotics for aspiration pneumonia 02/24: Patient was transferred to the ICU for further monitoring. This morning patient remained on high flow nasal cannula on 40 L/100% and despite repeated nasotracheal suctioning patient SPO2 remained in the 80s. Patient was placed on nonrebreather and SPO2 increased to upper 80s. Patient was subsequently intubated by anesthesia. Started on sedation. 02/25: Patient remains sedated on fentanyl, potassium and magnesium repleted. IV fluids and amlodipine discontinued. Possible bronchoscopy tomorrow. 02/26: Patient had a bronchoscopy today which showed mucus and no endobronchial lesions or masses. FiO2 was increased to 100 during and postprocedure weaning as tolerated. Repeat CXR is much improved after bronc. Given 1 L LR bolus due to hypotension. No acute events reported overnight. 02/27: Decreased PEEP, will repeat CT of chest. no acute changes overnight. 02/28: Patient was extubated today however had to be be intubated shortly after. Patient ETT looked mispositioned on x-ray and Dr. Alonzo did do a bedside bronc. Patient was briefly hypotensive and on Levophed postintubation however Levophed was quickly titrated off and patient did not require central line. No acute events reported overnight. Will obtain CT neck d/t difficulty intubating. Ethic committee consulted. 03/01: Overnight patient was hypotensive and started on IVF. Patient started on steroids as no air leak noted and hypotension and given 2 L LR 03/02: Overnight patient received bolus per RN report, no orders seen. Continue supportive care. 03/04: MAIDA overnight. Remains stable on the vent. Awaiting on desicion from [facility] for possible trach and PEG. Continue current supportive measures 03/05: MAIDA overnight. Awaiting on desicion from [facility] for possible trach and PEG. Midodrine held yesterday, HR improved. Continue current supportive measures. Daily PSV trial as tolerated per CCM 03/06: Remains stable on the vent. Continue current supportive measures, daily PSV trial per CCM. Awaiting on desicion for possible trach and PEG. 03/07: MAIDA overnight, remains stable. Continue daily PSV trial as tolerated. Awaiting on desicion for possible trach and PEG. 03/08: Patient failed PSV trial this am due to tachycardia and increase RR. Continue supportive measures and daily PSV trial as tolerated. Possible discussion with ethics and CCM on Thursday in regards to medical necessity, may need to consider two physician consent if no one is able to claim responsibility for this patient. 03/09: MAIDA overnight. Continue current supportive measures and daily PSV trail as tolerated. Awaiting on decision for possible trach and PEG, discussion with Ethics possibly tomorrow per CCM. 03/10: no acute events overnight, PSV today. replete potassium. 03/11: No acute events reported overnight, patient failed PSV yesterday and will repeat today. Hospital to start guardianship process. Hospitalist Physical - Constitutional Vitals: Temp Pulse Resp BP Pulse Ox 97.9 F 66 14 105/52 100 03/11/22 11:33 03/11/22 08:00 03/11/22 08:00 03/11/22 08:00 03/11/22 08:00 General appearance: Present: no acute distress, well-nourished - EENT Eyes: Present: PERRL, EOM intact ENT: poor dentition - Neck Neck: Absent: masses or JVD, cervical LAD - Respiratory Respiratory effort: normal Respiratory: bilateral: diminished, rhonchi - Cardiovascular Rhythm: regular Heart Sounds: Present: S1 & S2. Absent: systolic murmur, diastolic murmur - Extremities Extremities: no ischemia, pulses intact, pulses symmetrical, No edema, normal temperature, normal color Peripheral Pulses: within normal limits - Abdominal General gastrointestinal: soft, non-tender, non-distended, normal bowel sounds - Integumentary Integumentary: Present: warm, dry - Psychiatric Psychiatric: other - Neurologic Neurologic: other (follows commands intermittantly, moves extremites spontanously) - Allied Health Allied health notes reviewed: nursing, RT, social work HEART Score - HEART Score Troponin: Troponin T < 0.010 ng/mL (0.00-0.029) 02/18/22 21:02 Results - Labs CBC & Chem 7: 03/11/22 04:02 03/11/22 04:02 Labs: Laboratory Last Values WBC 12.0 K/mm3 (4.5-11.0) H 03/11/22 04:02 RBC 2.81 M/mm3 (3.65-5.03) L 03/11/22 04:02 Hgb 9.2 gm/dl (11.8-15.2) L 03/11/22 04:02 Hct 29.1 % (35.5-45.6) L 03/11/22 04:02 MCV 103 fl (84-94) H 03/11/22 04:02 MCH 33 pg (28-32) H 03/11/22 04:02 MCHC 32 % (32-34) 03/11/22 04:02 RDW 17.5 % (13.2-15.2) H 03/11/22 04:02 Plt Count 319 K/mm3 (140-440) 03/11/22 04:02 Lymph % (Auto) 13.3 % (13.4-35.0) L 03/10/22 03:57 Glenn % (Auto) 12.5 % (0.0-7.3) H 03/10/22 03:57 Eos % (Auto) 1.4 % (0.0-4.3) 03/10/22 03:57 Baso % (Auto) 0.4 % (0.0-1.8) 03/10/22 03:57 Lymph # (Auto) 1.3 K/mm3 (1.2-5.4) 03/10/22 03:57 Glenn # (Auto) 1.3 K/mm3 (0.0-0.8) H 03/10/22 03:57 Eos # (Auto) 0.1 K/mm3 (0.0-0.4) 03/10/22 03:57 Baso # (Auto) 0.0 K/mm3 (0.0-0.1) 03/10/22 03:57 Add Manual Diff Complete 03/03/22 03:54 Total Counted 100 03/03/22 03:54 Seg Neutrophils % 72.4 % (40.0-70.0) H 03/10/22 03:57 Seg Neuts % (Manual) 95.0 % (40.0-70.0) H 03/03/22 03:54 Band Neutrophils % 0 % 03/03/22 03:54 Lymphocytes % (Manual) 3.0 % (13.4-35.0) L 03/03/22 03:54 Reactive Lymphs % (Man) 0 % 03/03/22 03:54 Monocytes % (Manual) 2.0 % (0.0-7.3) 03/03/22 03:54 Eosinophils % (Manual) 0 % (0.0-4.3) 03/03/22 03:54 Basophils % (Manual) 0 % (0.0-1.8) 03/03/22 03:54 Metamyelocytes % 0 % 03/03/22 03:54 Myelocytes % 0 % 03/03/22 03:54 Promyelocytes % 0 % 03/03/22 03:54 Blast Cells % 0 % 03/03/22 03:54 Nucleated RBC % Not Reportable 03/03/22 03:54 Seg Neutrophils # 7.4 K/mm3 (1.8-7.7) 03/10/22 03:57 Seg Neutrophils # Man 18.5 K/mm3 (1.8-7.7) H 03/03/22 03:54 Band Neutrophils # 0.0 K/mm3 03/03/22 03:54 Lymphocytes # (Manual) 0.6 K/mm3 (1.2-5.4) L 03/03/22 03:54 Abs React Lymphs (Man) 0.0 K/mm3 03/03/22 03:54 Monocytes # (Manual) 0.4 K/mm3 (0.0-0.8) 03/03/22 03:54 Eosinophils # (Manual) 0.0 K/mm3 (0.0-0.4) 03/03/22 03:54 Basophils # (Manual) 0.0 K/mm3 (0.0-0.1) 03/03/22 03:54 Metamyelocytes # 0.0 K/mm3 03/03/22 03:54 Myelocytes # 0.0 K/mm3 03/03/22 03:54 Promyelocytes # 0.0 K/mm3 03/03/22 03:54 Blast Cells # 0.0 K/mm3 03/03/22 03:54 WBC Morphology Not Reportable 03/03/22 03:54 Hypersegmented Neuts Not Reportable 03/03/22 03:54 Hyposegmented Neuts Not Reportable 03/03/22 03:54 Hypogranular Neuts Not Reportable 03/03/22 03:54 Smudge Cells Not Reportable 03/03/22 03:54 Toxic Granulation Not Reportable 03/03/22 03:54 Toxic Vacuolation Not Reportable 03/03/22 03:54 Dohle Bodies Not Reportable 03/03/22 03:54 Pelger-Huet Anomaly Not Reportable 03/03/22 03:54 Lakshmi Rods Not Reportable 03/03/22 03:54 Platelet Estimate Consistent w auto 03/03/22 03:54 Clumped Platelets Not Reportable 03/03/22 03:54 Plt Clumps, EDTA Not Reportable 03/03/22 03:54 Large Platelets Not Reportable 03/03/22 03:54 Giant Platelets Not Reportable 03/03/22 03:54 Platelet Satelliting Not Reportable 03/03/22 03:54 Plt Morphology Comment Not Reportable 03/03/22 03:54 RBC Morphology Not Reportable 03/03/22 03:54 Dimorphic RBCs Not Reportable 03/03/22 03:54 Polychromasia Not Reportable 03/03/22 03:54 Hypochromasia Not Reportable 03/03/22 03:54 Poikilocytosis Not Reportable 03/03/22 03:54 Anisocytosis 1+ 03/03/22 03:54 Microcytosis Not Reportable 03/03/22 03:54 Macrocytosis Not Reportable 03/03/22 03:54 Spherocytes Not Reportable 03/03/22 03:54 Pappenheimer Bodies Not Reportable 03/03/22 03:54 Sickle Cells Not Reportable 03/03/22 03:54 Target Cells Not Reportable 03/03/22 03:54 Tear Drop Cells Not Reportable 03/03/22 03:54 Ovalocytes Not Reportable 03/03/22 03:54 Helmet Cells Not Reportable 03/03/22 03:54 [place] Bodies Not Reportable 03/03/22 03:54 [place] Rings Not Reportable 03/03/22 03:54 [place] Cells Not Reportable 03/03/22 03:54 Bite Cells Not Reportable 03/03/22 03:54 Crenated Cell Not Reportable 03/03/22 03:54 Elliptocytes Not Reportable 03/03/22 03:54 Acanthocytes (Spur) Not Reportable 03/03/22 03:54 Rouleaux Not Reportable 03/03/22 03:54 Hemoglobin C Crystals Not Reportable 03/03/22 03:54 Schistocytes Not Reportable 03/03/22 03:54 Malaria parasites Not Reportable 03/03/22 03:54 Cash Bodies Not Reportable 03/03/22 03:54 Hem Pathologist Commnt No 03/03/22 03:54 PT 16.2 Sec. (12.2-14.9) H 03/11/22 04:02 INR 1.16 (0.87-1.13) H 03/11/22 04:02 ABG pH 7.476 pH Units (7.350-7.450) H 03/11/22 05:10 ABG pCO2 41.2 mm Hg 03/11/22 05:10 ABG pO2 84.0 mm Hg (80.0-90.0) 03/11/22 05:10 ABG HCO3 29.7 mmol/L (20.0-26.0) H 03/11/22 05:10 ABG O2 Saturation 97.1 % (95.0-99.0) 03/11/22 05:10 ABG O2 Content 12.3 (0.0-44) 03/11/22 05:10 ABG Base Excess 5.7 mmol/L (-2.0-3.0) H 03/11/22 05:10 ABG Hemoglobin 9.1 gm/dl (14.0-18.0) L 03/11/22 05:10 ABG Carboxyhemoglobin 1.7 % (0.0-5.0) 03/11/22 05:10 ABG Methemoglobin 0.5 % (0.0-1.5) 03/11/22 05:10 Oxyhemoglobin 95.0 % (95.0-99.0) 03/11/22 05:10 FiO2 30 % 03/11/22 05:10 Sodium 139 mmol/L (137-145) 03/11/22 04:02 Potassium 3.8 mmol/L (3.6-5.0) 03/11/22 04:02 Chloride 103.6 mmol/L (98-107) 03/11/22 04:02 Carbon Dioxide 26 mmol/L (22-30) 03/11/22 04:02 Anion Gap 13 mmol/L 03/11/22 04:02 BUN 16 mg/dL (9-20) 03/11/22 04:02 Creatinine 0.5 mg/dL (0.8-1.3) L 03/11/22 04:02 Estimated GFR > 60 ml/min 03/11/22 04:02 BUN/Creatinine Ratio 32 % 03/11/22 04:02 Glucose 104 mg/dL (75-100) H 03/11/22 04:02 POC Glucose 101 mg/dL (70-105) 03/10/22 23:53 Lactic Acid 1.20 mmol/L (0.7-2.0) 02/18/22 21:02 Calcium 7.9 mg/dL (8.4-10.2) L 03/11/22 04:02 Phosphorus 3.50 mg/dL (2.5-4.5) 03/11/22 04:02 Magnesium 2.00 mg/dL (1.7-2.3) 03/11/22 04:02 Total Bilirubin 0.30 mg/dL (0.1-1.2) 03/10/22 03:57 AST 17 units/L (5-40) 03/10/22 03:57 ALT 18 units/L (7-56) 03/10/22 03:57 Alkaline Phosphatase 89 units/L (35-129) 03/10/22 03:57 Ammonia 14.0 umol/L (25-60) L 02/18/22 23:22 Troponin T < 0.010 ng/mL (0.00-0.029) 02/18/22 21:02 Total Protein 6.6 g/dL (6.3-8.2) 03/10/22 03:57 Albumin 1.9 g/dL (3.9-5) L 03/10/22 03:57 Albumin/Globulin Ratio 0.4 % 03/10/22 03:57 Urine Color Dark yellow (Yellow) 02/18/22 Unknown Urine Turbidity Clear (Clear) 02/18/22 Unknown Urine pH 7.0 (5.0-7.0) 02/18/22 Unknown Ur Specific [place] 1.015 (1.003-1.030) 02/18/22 Unknown Urine Protein <15 mg/dl mg/dL (Negative) 02/18/22 Unknown Urine Glucose (UA) Negative mg/dL (Negative) 02/18/22 Unknown Urine Ketones Negative mg/dL (Negative) 02/18/22 Unknown Urine Blood Trace (Negative) 02/18/22 Unknown Urine Nitrite Negative (Negative) 02/18/22 Unknown Urine Bilirubin Negative (Negative) 02/18/22 Unknown Urine Urobilinogen < 2.0 mg/dL (<2.0) 02/18/22 Unknown Ur Leukocyte Esterase Negative (Negative) 02/18/22 Unknown Urine WBC (Auto) 2.0 /HPF (0.0-6.0) 02/18/22 Unknown Urine RBC (Auto) 9.0 /HPF (0.0-6.0) 02/18/22 Unknown Urine Mucus Few /HPF 02/18/22 Unknown Urine Opiates Screen Negative 02/18/22 Unknown Urine Methadone Screen Negative 02/18/22 Unknown Ur Barbiturates Screen Negative 02/18/22 Unknown Ur Phencyclidine Scrn Negative 02/18/22 Unknown Ur Amphetamines Screen Negative 02/18/22 Unknown U Benzodiazepines Scrn Negative 02/18/22 Unknown Urine Cocaine Screen Negative 02/18/22 Unknown U Marijuana (THC) Screen Negative 02/18/22 Unknown Drugs of Abuse Note Disclamer 02/18/22 Unknown Plasma/Serum Alcohol < 0.01 % (0-0.07) 02/18/22 21:02 Horowitz/IV: Voiding Method Indwelling Catheter Active Medications - Current Medications Current Medications: Generic Name Dose Route Start Last Admin Trade Name Freq PRN Reason Stop Dose Admin Acetaminophen 650 mg 03/03/22 09:00 Acetaminophen 325 Mg/10.15 Ml Oral Liqd Unit Dose FEEDTUBE Q4H PRN Pain, Mild (1-3); TEMP > 100.4 Albuterol 2.5 mg 02/23/22 16:00 03/11/22 08:00 Albuterol 2.5 Mg/3 Ml Nebu IH 2.5 mg Q4HRT LAZARUS Administration Famotidine 20 mg 02/25/22 10:00 03/11/22 10:34 Famotidine 20 Mg Tab FEEDTUBE 20 mg BID LAZARUS Administration Heparin Sodium (Porcine) 5,000 unit 02/19/22 06:00 03/11/22 05:30 Heparin 5,000 Unit/1 Ml Vial SUB-Q 5,000 unit Q8HR LAZARUS Administration Hydrophilic Ointment 1 applic 02/24/22 15:05 Lip Therapy Vaseline TP Q2HR PRN Dry Lips Levetiracetam 500 mg 02/25/22 22:00 03/11/22 10:34 Levetiracetam 500 Mg/5 Ml Oral Liqd FEEDTUBE 500 mg BID LAZARUS Administration Levothyroxine Sodium 25 mcg 02/26/22 06:00 03/11/22 05:50 Levothyroxine 25 Mcg Tab FEEDTUBE 25 mcg QAM@0600 LAZARUS Administration Magnesium Hydroxide 30 ml 02/19/22 02:02 Magnesium Hydroxide (Mom) Oral Liqd Udc PO Q4H PRN Constipation Morphine Sulfate 2 mg 02/19/22 02:02 Morphine 2 Mg/1 Ml Inj IV Q4H PRN Pain, Moderate (4-6) Morphine Sulfate 4 mg 02/19/22 02:02 Morphine 4 Mg/1 Ml Inj IV Q4H PRN Pain , Severe (7-10) Multi-Ingred Cream/Lotion/Oil/Oint 1 applic 02/24/22 15:05 Mineral Oil/Petrolatum, White Ophth Oint 3.5 Gm OU Q4HR PRN Dry Eye(s) Ondansetron HCl 4 mg 02/19/22 02:02 Ondansetron 4 Mg/2 Ml Inj IV Q8H PRN Nausea And Vomiting Pravastatin Sodium 40 mg 02/25/22 22:00 03/10/22 21:09 Pravastatin 40 Mg Tab FEEDTUBE 40 mg QHS LAZARUS Administration Senna/Docusate Sodium 1 tab 02/24/22 22:00 03/11/22 10:34 Sennosides/Docusate Sodium 8.6/50 Mg Tab FEEDTUBE 1 tab BID LAZARUS Administration Sodium Chloride 10 ml 02/19/22 10:00 03/11/22 10:36 Sodium Chloride 0.9% 10 Ml Flush Syringe IV 10 ml BID LAZARUS Administration Sodium Chloride 10 ml 02/19/22 02:02 03/03/22 14:21 Sodium Chloride 0.9% 10 Ml Flush Syringe IV 10 ml PRN PRN Administration LINE FLUSH Nutrition/Malnutrition Assess - Dietary Evaluation Nutrition/Malnutrition Findings: Nutrition Notes Start: 02/19/22 14:29 Freq: Status: Active Protocol: Document 03/07/22 14:34 IVAN (Rec: 03/07/22 14:44 IVAN [id number]) Nutrition Notes Initial or Follow up Reassessment Current Diagnosis Hypertension,Respiratory Failure,Hyperlipidemia Other Pertinent Diagnosis Asp pneu, acute encephalopathy , seizure d/o, partial blindness Current Diet TF - Vital AF 1.2 at 50ml/hr Labs/Tests Reviewed Pertinent Medications Reviewed Height 5 ft 3 in Weight 63.2 kg [place] Body Weight (kg) 56.36 BMI 24.7 Weight change and time frame Unable to obtain current wt; bed scale not working - RN aware Weight Status Appropriate Subjective/Other Information Observed TF infusing at goal rate. Pt tolerating TF and remains on vent support. Pt been intubated since 02/24/22 via ETT. Trach/PEG placement pending. Percent of energy/protein needs met: 90% energy 100% pro Burn Absent Trauma Absent #1 Nutrition Diagnosis Inadequate oral intake Diagnosis Progress(for reassessment Continues documentation) Is patient on ventilator? Yes Is Patient Ambulatory and/or Out of Bed No REE-([facility]-confined to bed) [phone] Calculation Used for Recommendations [facility] Additional Notes Pro needs 1.2-2g/k-126g/ day Fluid needs 1ml/kcal Nutrition Intervention Nutrition Support: Continue Vital AF 1.2 at 50ml/ hr with 75ml water flush q4h. Kcal 1,440 Protein (gm) 90 Carbohydrates (gm) 133 Fat (gm) 65 Fluid (mL) 973 Fiber (gm) 6 Goal #1 TF tolerance Goal #2 TF to meet at least 75% energy and pro needs Follow-Up By: 03/14/22 Additional Comments F/U: stable TF, trach/PEG placement, vent status, wt
[2022-03-11] MEDS: PRAVASTATIN 40 MG TAB FEEDTUBE SCH (22:16)
[2022-03-12] MEDS: ALBUTEROL 2.5 MG/3 ML NEBU IH SCH ×5 (00:30→19:24)
[2022-03-12] MEDS: HEPARIN 5,000 UNIT/1 ML VIAL SUB-Q SCH ×3 (06:11→22:50)
[2022-03-12] MEDS: LEVOTHYROXINE 25 MCG TAB FEEDTUBE SCH (06:11)
[2022-03-12] MEDS: FAMOTIDINE 20 MG TAB FEEDTUBE SCH ×2 (10:19→22:50)
[2022-03-12] MEDS: levETIRAcetam 500 MG/5 ML ORAL LIQD FEEDTUBE SCH ×2 (10:20→22:50)
[2022-03-12] MEDS: SENNOSIDES/DOCUSATE SODIUM 8.6/50 MG TAB FEEDTUBE SCH ×2 (10:21→22:50)
--- NOTE | 2022-03-12 13:09 | Progress Note ---
Assessment and Plan 61 y/o male with abnormal CT of chest. 03/12/22: Day 16 of intubation. Following up with hospital in regards to guardian. Continue supportive measures. Guarded prognosis. 03/11/22: hospital now attempting to find emergency guardian to have consent for trach as ethics committee cannot comment on this matter so unable to help. Until then will remain intubated orally. Failed PSV yesterday, will continue to attempt on daily basis. Unfortunate situation. Guarded prognosis. 03/10/22: Today nuñez day 14 of intubation. Given patient's mental state and increased risk of aspiration, the likelihood of conventional extubation with s uccess is very very slim and the patient has already failed this in an extremely short period of time (less than 1 hour). I suspect that he will fail again if tried and could create more difficult reintubation as he was a difficult reintubation on his failed extubation attempt. To prevent further decline and potential complications of prolonged mechanical ventilation, will discuss with ethics and the hospital to use 2 physician consent to obtain trach and peg for this patient with hopes of liberating him from the mechanical ventilator. he has very minimal vent requirements but as been stated several times above, he continues to aspirate and failed conventional extubation almost immediately. Will consult surgery today. Dr. Mancia is prepared to sign consent as well as myself. Hopeful surgery will be on board with this. Continue supportive care for now. Attempt daily PSV trials. 03/07/22: Daily PSV trials as tolerated. Still no one to step up as adult friend. patient has now been intubated since 02/24/22 and is approaching the time period in which prolonged mechanical ventilation could lead to significant complications that could be detrimental to health (infection, stenosis, malacia etc). Will discuss again with ethics but in regards to medical necessity, may need to consider two physician consent if no one is able to claim responsibility for this patient. He is a full code and we must work in his best interest to prevent further harm. Continue supportive measures but he is not a candidate for conventional extubation given his mental state, despite being on minimal support. He has already failed this before. 03/06/22: PSV trials daily. Will discuss with RT. Spoke with ethics. Plan in place and awaiting on news from penitentiary and state. Continue supportive measures. Patient has been intubated since 02/24/22 and is approaching the 2 week shadi of intubation will need to make decisions soon to avoid unnecessary complications related to prolonged intubation. 03/05/22: Will follow up with ethics today. Awaiting some guidance about consent for trach and peg. This is a medical necessity to liberate patient from mechanical ventilation. Continue supportive measures. Ok with daily PSV trials 03/04/22: Follow up with ethics later this afternoon. Spoke with RT and patient does have cuff leak, will stop steroids. Stopping midodrine as BP is stable and bradycardia likely from this. 03/03/22: Await ethics eval. CM has spoken with state as well. Daily cuff leaks. Will start to wean steroids tomorrow. Midodrine can cause bradycardia. If continues or worsens will stop. Guarded prognosis. 03/02/22: Continue supportive measures. Await ethics consult before surgery consult for trach and peg. no further need for fluid boluses. Will continue stress dose steroids but have daily air leak checks by RT. Still will need trach, will not attempt extubation again. Guarded prognosis. 03/01/22: Patient is having increased urine output. THis could be the cause of new onset hypotension. Will bolus 2 more liters of LR now and reassess. If th is continues may need to work up for SIADH including repeat head CT. Follow up ethics review of case. Will need trach for ventilator liberation. Overall prognosis remains guarded. 02/28/22: Will obtain CT neck, noncontrast to look for airway edema or other possible etiologies for failure. Needs ethics consult as given patient's mental state, inability to clear secretions appropriately, will need trach now that he has failed extubation. However he has no family and no POA so no one to give consent. Continue supportive measures. Guarded prognosis. 02/27/22: Continue improvement of oxygenation. Will drop PEEP down today with goal of being at 6 by in the morning. Will repeat CT scan to confirm improvement as no endobronchial lesion was seen, but also to make sure no parenchymal mass. There was no evidence of extrinsic compression during bronch. Likely extubation tomorrow post CT. 02/26/22: Repeat CXR now. Wean Vent as tolerated. Hopeful extubation soon. Mucous removed. NO ENDOBRONCHIAL LESION/MASS 02/25/22: Bronch tentatively planned for tomorrow with therapeutic scope. Awaiting GI lab to give a time. NPO after midnight. Continue high PEEP 02/24/22: WIll attempt to bronch tomorrow morning. NPO after midnight. Just received word from GI lab they are not able to do bronch tomorrow. Cancel NPO order. Continue to feed patient. Repeat ABG in AM along with CXR. 02/21/22: No new pulm recs for today. Please obtain repeat CXR likely on Thursday. If patient happens to get worse, likely not a candidate for bipap given his weak cough and mental state and inability to communicate. If worsens and requires intubation, will bronch then under emergent circumstances if no POA or family is able to be located. Continue CPT. Will discuss with RT about NT suctioning. 02/20/22: Saw speech while on the floor. Would like patient to be NPO now. Discussed with nurse on floor and with IMS. Same recs pulm way as yesterday. Would benefit from bronch if able to get consent as this is not emergent. Continue CPT and q shift NT suctioning. Reviewed admission in the past and of note, patient was recently admitted last month and had a CXR done on the 29 of January that was normal. Given this patient's medical history and the history that I obtained from the nursing staff that at the retirement he was eating solid foods, I suspect that this is aspiration, possibly of a foreign body (most likely food) with atelectasis of the right lower lobe. It is highly unlikely that a mass evolved in size in less than a months time and patient, besides age, has no real risk factors for lung carcinoma. Discussed with the nurse and unfortunately there is no identifiable person that is able to give consent. Bronchoscopy is needed in the case to e valuate to see if lung mass is there vs foreign body, but at this time not able to do. In the meanwhile will recommend the following. 1. Will order CPT with neb therapy 3x daily 2. Suggest maybe NT suctioning q shift. May use nasal trumpet, however do not leave this device in the patient 3. Aspiration precautions 4. Consider speech eval to assess swallowing. Will continue to follow. CCT 31 minutes. Subjective Date of service: 03/12/22 Principal diagnosis: f/u Acute respiratory failure Interval history: No acute events. No PSV trials documented being attempted yesterday. Still no guardian as of yet Objective Vital Signs - 12hr 03/12/22 03/12/22 03/12/22 02:00 03:00 04:00 Temperature 98.1 F Pulse Rate 84 75 79 Pulse Rate [ 91 H Bilateral Throughout] Respiratory 14 14 14 Rate Respiratory 18 Rate [Bilateral Throughout] Blood Pressure 104/59 94/56 94/56 O2 Sat by Pulse 97 97 97 Oximetry 03/12/22 03/12/22 03/12/22 05:00 06:00 07:00 Temperature Pulse Rate 78 73 66 Pulse Rate [ Bilateral Throughout] Respiratory 14 14 12 Rate Respiratory Rate [Bilateral Throughout] Blood Pressure 68/30 90/42 85/37 O2 Sat by Pulse 93 97 97 Oximetry 03/12/22 03/12/22 03/12/22 08:00 08:19 08:20 Temperature 98 F Pulse Rate 70 72 Pulse Rate [ 76 Bilateral Throughout] Respiratory 14 Rate Respiratory 14 Rate [Bilateral Throughout] Blood Pressure 87/39 87/39 O2 Sat by Pulse 97 97 98 Oximetry 03/12/22 12:00 Temperature Pulse Rate Pulse Rate [ Bilateral Throughout] Respiratory Rate Respiratory Rate [Bilateral Throughout] Blood Pressure 90/48 O2 Sat by Pulse 97 Oximetry Constitutional: alert, other (critically ill on ventilator) Eyes: non-icteric ENT: oropharynx moist Neck: supple Effort: normal Ascultation: Bilateral: diminished breath sounds, rhonchi Cardiovascular: regular rate and rhythm (no mrg) Gastrointestinal: normoactive bowel sounds, soft, non-tender (on o2 vest in place), non-distended Integumentary: normal Extremities: no cyanosis, no edema Neurologic: other (awake) Psychiatric: other (unable to assess) CBC and BMP: 03/11/22 04:02 03/11/22 04:02 ABG, PT/INR, D-dimer: ABG ABG pH 7.476 pH Units (7.350-7.450) H 03/11/22 05:10 ABG pCO2 41.2 mm Hg 03/11/22 05:10 ABG pO2 84.0 mm Hg (80.0-90.0) 03/11/22 05:10 ABG O2 Saturation 97.1 % (95.0-99.0) 03/11/22 05:10 PT/INR, D-dimer PT 16.2 Sec. (12.2-14.9) H 03/11/22 04:02 INR 1.16 (0.87-1.13) H 03/11/22 04:02 Abnormal lab findings: Abnormal Labs 02/18/22 02/18/22 02/18/22 19:34 21:02 21:02 WBC RBC Hgb Hct MCV 101 H MCH 34 H MCHC RDW 16.1 H Lymph % (Auto) [place] % (Auto) 12.4 H Lymph # (Auto) [place] # (Auto) 1.2 H Seg Neutrophils % 73.0 H Seg Neuts % (Manual) Lymphocytes % (Manual) Seg Neutrophils # Seg Neutrophils # Man Lymphocytes # (Manual) PT 16.9 H INR 1.20 H ABG pH ABG pO2 ABG HCO3 ABG O2 Saturation ABG Base Excess ABG Hemoglobin Oxyhemoglobin Sodium Potassium Chloride Carbon Dioxide BUN Creatinine Glucose POC Glucose 116 H Calcium Phosphorus AST ALT Ammonia Albumin 02/18/22 02/18/22 02/18/22 21:02 22:45 23:22 WBC RBC Hgb Hct MCV MCH MCHC RDW Lymph % (Auto) [place] % (Auto) Lymph # (Auto) [place] # (Auto) Seg Neutrophils % Seg Neuts % (Manual) Lymphocytes % (Manual) Seg Neutrophils # Seg Neutrophils # Man Lymphocytes # (Manual) PT INR ABG pH ABG pO2 55.6 L ABG HCO3 28.4 H ABG O2 Saturation 91.5 L ABG Base Excess 3.8 H ABG Hemoglobin 13.2 L Oxyhemoglobin 89.6 L Sodium Potassium 5.1 H Chloride Carbon Dioxide BUN Creatinine Glucose 102 H POC Glucose Calcium Phosphorus AST 48 H ALT 64 H Ammonia 14.0 L Albumin 2.7 L 02/20/22 02/20/22 02/23/22 04:59 04:59 06:29 WBC 11.4 H RBC Hgb Hct MCV 103 H MCH 33 H MCHC RDW 16.5 H Lymph % (Auto) 5.5 L [place] % (Auto) 12.1 H Lymph # (Auto) 0.6 L [place] # (Auto) 1.4 H Seg Neutrophils % 81.4 H Seg Neuts % (Manual) Lymphocytes % (Manual) Seg Neutrophils # 9.2 H Seg Neutrophils # Man Lymphocytes # (Manual) PT INR ABG pH ABG pO2 ABG HCO3 ABG O2 Saturation ABG Base Excess ABG Hemoglobin Oxyhemoglobin Sodium Potassium Chloride Carbon Dioxide BUN Creatinine Glucose POC Glucose 113 H Calcium 8.2 L Phosphorus AST ALT Ammonia Albumin 02/23/22 02/23/22 02/24/22 11:22 16:10 00:02 WBC RBC Hgb Hct MCV MCH MCHC RDW Lymph % (Auto) [place] % (Auto) Lymph # (Auto) [place] # (Auto) Seg Neutrophils % Seg Neuts % (Manual) Lymphocytes % (Manual) Seg Neutrophils # Seg Neutrophils # Man Lymphocytes # (Manual) PT INR ABG pH ABG pO2 ABG HCO3 ABG O2 Saturation ABG Base Excess ABG Hemoglobin Oxyhemoglobin Sodium Potassium Chloride Carbon Dioxide BUN Creatinine Glucose POC Glucose 108 H 115 H 109 H Calcium Phosphorus AST ALT Ammonia Albumin 02/24/22 02/24/22 02/24/22 11:05 11:05 13:20 WBC RBC 3.55 L Hgb Hct MCV 100 H MCH 34 H MCHC RDW 15.6 H Lymph % (Auto) [place] % (Auto) Lymph # (Auto) [place] # (Auto) Seg Neutrophils % Seg Neuts % (Manual) Lymphocytes % (Manual) Seg Neutrophils # Seg Neutrophils # Man Lymphocytes # (Manual) PT INR ABG pH ABG pO2 ABG HCO3 ABG O2 Saturation ABG Base Excess ABG Hemoglobin Oxyhemoglobin Sodium 146 H Potassium 3.2 L D Chloride 108.4 H Carbon Dioxide BUN Creatinine 0.5 L Glucose POC Glucose 111 H Calcium 7.9 L Phosphorus 2.20 L AST ALT Ammonia Albumin 02/24/22 02/24/22 02/24/22 16:30 17:03 20:25 WBC RBC Hgb Hct MCV MCH MCHC RDW Lymph % (Auto) [place] % (Auto) Lymph # (Auto) [place] # (Auto) Seg Neutrophils % Seg Neuts % (Manual) Lymphocytes % (Manual) Seg Neutrophils # Seg Neutrophils # Man Lymphocytes # (Manual) PT INR ABG pH 7.319 L ABG pO2 65.3 L ABG HCO3 31.3 H ABG O2 Saturation 92.2 L ABG Base Excess 3.8 H ABG Hemoglobin 12.0 L Oxyhemoglobin 90.3 L Sodium Potassium Chloride 107.9 H Carbon Dioxide BUN 8 L Creatinine 0.4 L Glucose POC Glucose 108 H Calcium 7.6 L Phosphorus 4.60 H D AST ALT Ammonia Albumin 02/25/22 02/25/22 02/25/22 04:12 04:12 05:05 WBC RBC 3.07 L Hgb 10.2 L Hct 31.5 L MCV 103 H MCH 33 H MCHC RDW 15.6 H Lymph % (Auto) [place] % (Auto) Lymph # (Auto) [place] # (Auto) Seg Neutrophils % Seg Neuts % (Manual) Lymphocytes % (Manual) Seg Neutrophils # Seg Neutrophils # Man Lymphocytes # (Manual) PT INR ABG pH ABG pO2 ABG HCO3 32.5 H ABG O2 Saturation ABG Base Excess 5.6 H ABG Hemoglobin 10.8 L Oxyhemoglobin 94.8 L Sodium Potassium 3.5 L Chloride 107.7 H Carbon Dioxide BUN Creatinine 0.5 L Glucose POC Glucose Calcium 7.0 L Phosphorus AST ALT Ammonia Albumin 02/25/22 02/25/22 02/26/22 12:05 18:33 00:07 WBC RBC Hgb Hct MCV MCH MCHC RDW Lymph % (Auto) [place] % (Auto) Lymph # (Auto) [place] # (Auto) Seg Neutrophils % Seg Neuts % (Manual) Lymphocytes % (Manual) Seg Neutrophils # Seg Neutrophils # Man Lymphocytes # (Manual) PT INR ABG pH ABG pO2 ABG HCO3 ABG O2 Saturation ABG Base Excess ABG Hemoglobin Oxyhemoglobin Sodium Potassium Chloride Carbon Dioxide BUN Creatinine Glucose POC Glucose 127 H 125 H 114 H Calcium Phosphorus AST ALT Ammonia Albumin 02/26/22 02/26/22 02/26/22 03:30 04:42 11:34 WBC RBC Hgb Hct MCV MCH MCHC RDW Lymph % (Auto) [place] % (Auto) Lymph # (Auto) [place] # (Auto) Seg Neutrophils % Seg Neuts % (Manual) Lymphocytes % (Manual) Seg Neutrophils # Seg Neutrophils # Man Lymphocytes # (Manual) PT INR ABG pH ABG pO2 143.2 H ABG HCO3 33.2 H ABG O2 Saturation ABG Base Excess 6.5 H ABG Hemoglobin 9.4 L Oxyhemoglobin Sodium Potassium Chloride Carbon Dioxide 32 H BUN Creatinine 0.7 L Glucose POC Glucose 114 H Calcium 8.0 L Phosphorus AST ALT Ammonia Albumin 02/26/22 02/26/22 02/27/22 18:17 23:37 04:19 WBC 13.7 H RBC 2.78 L Hgb 9.3 L Hct 28.5 L MCV 103 H MCH 33 H MCHC RDW 16.3 H Lymph % (Auto) [place] % (Auto) Lymph # (Auto) [place] # (Auto) Seg Neutrophils % Seg Neuts % (Manual) Lymphocytes % (Manual) Seg Neutrophils # Seg Neutrophils # Man Lymphocytes # (Manual) PT INR ABG pH ABG pO2 ABG HCO3 ABG O2 Saturation ABG Base Excess ABG Hemoglobin Oxyhemoglobin Sodium Potassium Chloride Carbon Dioxide BUN Creatinine Glucose POC Glucose 111 H 117 H Calcium Phosphorus AST ALT Ammonia Albumin 02/27/22 02/27/22 02/27/22 04:19 04:35 05:27 WBC RBC Hgb Hct MCV MCH MCHC RDW Lymph % (Auto) [place] % (Auto) Lymph # (Auto) [place] # (Auto) Seg Neutrophils % Seg Neuts % (Manual) Lymphocytes % (Manual) Seg Neutrophils # Seg Neutrophils # Man Lymphocytes # (Manual) PT INR ABG pH ABG pO2 96.3 H ABG HCO3 34.9 H ABG O2 Saturation ABG Base Excess 8.1 H ABG Hemoglobin Oxyhemoglobin Sodium Potassium Chloride Carbon Dioxide 31 H BUN Creatinine 0.6 L Glucose 107 H POC Glucose 133 H Calcium 7.8 L Phosphorus AST ALT Ammonia Albumin 02/27/22 02/27/22 02/28/22 11:15 23:35 03:38 WBC 13.3 H RBC 3.05 L Hgb 10.2 L Hct 30.7 L MCV 101 H MCH 33 H MCHC RDW 16.1 H Lymph % (Auto) [place] % (Auto) Lymph # (Auto) [place] # (Auto) Seg Neutrophils % Seg Neuts % (Manual) Lymphocytes % (Manual) Seg Neutrophils # Seg Neutrophils # Man Lymphocytes # (Manual) PT INR ABG pH ABG pO2 ABG HCO3 ABG O2 Saturation ABG Base Excess ABG Hemoglobin Oxyhemoglobin Sodium Potassium Chloride Carbon Dioxide BUN Creatinine Glucose POC Glucose 129 H 122 H Calcium Phosphorus AST ALT Ammonia Albumin 02/28/22 02/28/22 02/28/22 04:50 05:30 09:30 WBC RBC Hgb Hct MCV MCH MCHC RDW Lymph % (Auto) [place] % (Auto) Lymph # (Auto) [place] # (Auto) Seg Neutrophils % Seg Neuts % (Manual) Lymphocytes % (Manual) Seg Neutrophils # Seg Neutrophils # Man Lymphocytes # (Manual) PT INR ABG pH 7.451 H 7.488 H ABG pO2 77.0 L ABG HCO3 37.1 H 34.6 H ABG O2 Saturation ABG Base Excess 11.5 H 10.1 H ABG Hemoglobin 10.1 L 10.0 L Oxyhemoglobin Sodium Potassium Chloride Carbon Dioxide BUN Creatinine Glucose POC Glucose 121 H Calcium Phosphorus AST ALT Ammonia Albumin 02/28/22 02/28/22 03/01/22 11:36 23:07 04:27 WBC 12.5 H RBC 2.85 L Hgb 9.5 L Hct 28.6 L MCV 101 H MCH 33 H MCHC RDW 15.7 H Lymph % (Auto) [place] % (Auto) Lymph # (Auto) [place] # (Auto) Seg Neutrophils % Seg Neuts % (Manual) Lymphocytes % (Manual) Seg Neutrophils # Seg Neutrophils # Man Lymphocytes # (Manual) PT INR ABG pH ABG pO2 ABG HCO3 ABG O2 Saturation ABG Base Excess ABG Hemoglobin Oxyhemoglobin Sodium Potassium Chloride Carbon Dioxide BUN Creatinine Glucose POC Glucose 112 H 107 H Calcium Phosphorus AST ALT Ammonia Albumin 03/01/22 03/01/22 03/01/22 04:27 05:05 11:29 WBC RBC Hgb Hct MCV MCH MCHC RDW Lymph % (Auto) [place] % (Auto) Lymph # (Auto) [place] # (Auto) Seg Neutrophils % Seg Neuts % (Manual) Lymphocytes % (Manual) Seg Neutrophils # Seg Neutrophils # Man Lymphocytes # (Manual) PT INR ABG pH ABG pO2 ABG HCO3 ABG O2 Saturation ABG Base Excess ABG Hemoglobin Oxyhemoglobin Sodium 147 H D Potassium Chloride Carbon Dioxide 34 H BUN Creatinine 0.6 L Glucose 128 H POC Glucose 119 H 121 H Calcium 7.9 L Phosphorus AST ALT Ammonia Albumin 03/01/22 03/01/22 03/02/22 16:15 23:57 05:18 WBC RBC Hgb Hct MCV MCH MCHC RDW Lymph % (Auto) [place] % (Auto) Lymph # (Auto) [place] # (Auto) Seg Neutrophils % Seg Neuts % (Manual) Lymphocytes % (Manual) Seg Neutrophils # Seg Neutrophils # Man Lymphocytes # (Manual) PT INR ABG pH ABG pO2 110.5 H ABG HCO3 33.0 H ABG O2 Saturation ABG Base Excess 7.4 H ABG Hemoglobin 8.6 L Oxyhemoglobin Sodium Potassium Chloride Carbon Dioxide BUN Creatinine Glucose POC Glucose 134 H 140 H Calcium Phosphorus AST ALT Ammonia Albumin 03/02/22 03/02/22 03/02/22 05:53 09:04 09:04 WBC 15.0 H RBC 3.00 L Hgb 9.7 L Hct 30.7 L MCV 102 H MCH MCHC RDW 16.6 H Lymph % (Auto) [place] % (Auto) Lymph # (Auto) [place] # (Auto) Seg Neutrophils % Seg Neuts % (Manual) Lymphocytes % (Manual) Seg Neutrophils # Seg Neutrophils # Man Lymphocytes # (Manual) PT INR ABG pH ABG pO2 ABG HCO3 ABG O2 Saturation ABG Base Excess ABG Hemoglobin Oxyhemoglobin Sodium Potassium Chloride Carbon Dioxide 31 H BUN Creatinine 0.6 L Glucose 157 H POC Glucose 158 H Calcium 7.9 L Phosphorus AST ALT Ammonia Albumin 03/02/22 03/02/22 03/02/22 11:36 16:25 23:17 WBC RBC Hgb Hct MCV MCH MCHC RDW Lymph % (Auto) [place] % (Auto) Lymph # (Auto) [place] # (Auto) Seg Neutrophils % Seg Neuts % (Manual) Lymphocytes % (Manual) Seg Neutrophils # Seg Neutrophils # Man Lymphocytes # (Manual) PT INR ABG pH ABG pO2 ABG HCO3 ABG O2 Saturation ABG Base Excess ABG Hemoglobin Oxyhemoglobin Sodium Potassium Chloride Carbon Dioxide BUN Creatinine Glucose POC Glucose 160 H 132 H 157 H Calcium Phosphorus AST ALT Ammonia Albumin 03/03/22 03/03/22 03/03/22 03:54 03:54 05:27 WBC 19.5 H RBC 2.79 L Hgb 9.0 L Hct 28.6 L MCV 102 H MCH MCHC RDW 16.2 H Lymph % (Auto) [place] % (Auto) Lymph # (Auto) [place] # (Auto) Seg Neutrophils % Seg Neuts % (Manual) 95.0 H Lymphocytes % (Manual) 3.0 L Seg Neutrophils # Seg Neutrophils # Man 18.5 H Lymphocytes # (Manual) 0.6 L PT INR ABG pH ABG pO2 ABG HCO3 ABG O2 Saturation ABG Base Excess ABG Hemoglobin Oxyhemoglobin Sodium Potassium Chloride Carbon Dioxide BUN Creatinine 0.6 L Glucose 130 H POC Glucose 149 H Calcium 8.1 L Phosphorus AST ALT Ammonia Albumin 03/03/22 03/03/22 03/04/22 11:13 17:30 00:02 WBC RBC Hgb Hct MCV MCH MCHC RDW Lymph % (Auto) [place] % (Auto) Lymph # (Auto) [place] # (Auto) Seg Neutrophils % Seg Neuts % (Manual) Lymphocytes % (Manual) Seg Neutrophils # Seg Neutrophils # Man Lymphocytes # (Manual) PT INR ABG pH ABG pO2 ABG HCO3 ABG O2 Saturation ABG Base Excess ABG Hemoglobin Oxyhemoglobin Sodium Potassium Chloride Carbon Dioxide BUN Creatinine Glucose POC Glucose 139 H 138 H 157 H Calcium Phosphorus AST ALT Ammonia Albumin 03/04/22 03/04/22 03/04/22 05:32 05:32 05:48 WBC 16.1 H RBC 2.81 L Hgb 9.3 L Hct 28.8 L MCV 102 H MCH 33 H MCHC RDW 16.7 H Lymph % (Auto) [place] % (Auto) Lymph # (Auto) [place] # (Auto) Seg Neutrophils % Seg Neuts % (Manual) Lymphocytes % (Manual) Seg Neutrophils # Seg Neutrophils # Man Lymphocytes # (Manual) PT INR ABG pH ABG pO2 ABG HCO3 ABG O2 Saturation ABG Base Excess ABG Hemoglobin Oxyhemoglobin Sodium Potassium Chloride Carbon Dioxide BUN Creatinine 0.7 L Glucose 135 H POC Glucose 145 H Calcium 8.3 L Phosphorus AST ALT Ammonia Albumin 03/04/22 03/04/22 03/05/22 11:34 16:29 00:28 WBC RBC Hgb Hct MCV MCH MCHC RDW Lymph % (Auto) [place] % (Auto) Lymph # (Auto) [place] # (Auto) Seg Neutrophils % Seg Neuts % (Manual) Lymphocytes % (Manual) Seg Neutrophils # Seg Neutrophils # Man Lymphocytes # (Manual) PT INR ABG pH ABG pO2 ABG HCO3 ABG O2 Saturation ABG Base Excess ABG Hemoglobin Oxyhemoglobin Sodium Potassium Chloride Carbon Dioxide BUN Creatinine Glucose POC Glucose 148 H 140 H 116 H Calcium Phosphorus AST ALT Ammonia Albumin 03/05/22 03/05/22 03/05/22 06:29 11:30 17:38 WBC RBC Hgb Hct MCV MCH MCHC RDW Lymph % (Auto) [place] % (Auto) Lymph # (Auto) [place] # (Auto) Seg Neutrophils % Seg Neuts % (Manual) Lymphocytes % (Manual) Seg Neutrophils # Seg Neutrophils # Man Lymphocytes # (Manual) PT INR ABG pH ABG pO2 ABG HCO3 ABG O2 Saturation ABG Base Excess ABG Hemoglobin Oxyhemoglobin Sodium Potassium Chloride Carbon Dioxide BUN Creatinine Glucose POC Glucose 114 H 114 H 117 H Calcium Phosphorus AST ALT Ammonia Albumin 03/06/22 03/06/22 03/06/22 04:17 04:17 06:06 WBC 13.4 H RBC 2.85 L Hgb 9.4 L Hct 29.0 L MCV 102 H MCH 33 H MCHC RDW 16.4 H Lymph % (Auto) [place] % (Auto) Lymph # (Auto) [place] # (Auto) Seg Neutrophils % Seg Neuts % (Manual) Lymphocytes % (Manual) Seg Neutrophils # Seg Neutrophils # Man Lymphocytes # (Manual) PT INR ABG pH ABG pO2 ABG HCO3 ABG O2 Saturation ABG Base Excess ABG Hemoglobin Oxyhemoglobin Sodium Potassium 3.5 L Chloride Carbon Dioxide 31 H BUN Creatinine 0.6 L Glucose 101 H POC Glucose 106 H Calcium 7.7 L Phosphorus 2.00 L AST ALT Ammonia Albumin 03/06/22 03/06/22 03/07/22 18:04 23:50 05:14 WBC RBC Hgb Hct MCV MCH MCHC RDW Lymph % (Auto) [place] % (Auto) Lymph # (Auto) [place] # (Auto) Seg Neutrophils % Seg Neuts % (Manual) Lymphocytes % (Manual) Seg Neutrophils # Seg Neutrophils # Man Lymphocytes # (Manual) PT INR ABG pH ABG pO2 ABG HCO3 ABG O2 Saturation ABG Base Excess ABG Hemoglobin Oxyhemoglobin Sodium Potassium Chloride Carbon Dioxide BUN Creatinine Glucose POC Glucose 108 H 115 H 116 H Calcium Phosphorus AST ALT Ammonia Albumin 03/07/22 03/07/22 03/08/22 11:42 18:13 04:34 WBC RBC 2.86 L Hgb 9.2 L Hct 29.3 L MCV 103 H MCH MCHC 31 L RDW 16.9 H Lymph % (Auto) [place] % (Auto) Lymph # (Auto) [place] # (Auto) Seg Neutrophils % Seg Neuts % (Manual) Lymphocytes % (Manual) Seg Neutrophils # Seg Neutrophils # Man Lymphocytes # (Manual) PT INR ABG pH ABG pO2 ABG HCO3 ABG O2 Saturation ABG Base Excess ABG Hemoglobin Oxyhemoglobin Sodium Potassium Chloride Carbon Dioxide BUN Creatinine Glucose POC Glucose 123 H 109 H Calcium Phosphorus AST ALT Ammonia Albumin 03/08/22 03/08/22 03/08/22 04:34 11:29 16:34 WBC RBC Hgb Hct MCV MCH MCHC RDW Lymph % (Auto) [place] % (Auto) Lymph # (Auto) [place] # (Auto) Seg Neutrophils % Seg Neuts % (Manual) Lymphocytes % (Manual) Seg Neutrophils # Seg Neutrophils # Man Lymphocytes # (Manual) PT INR ABG pH ABG pO2 ABG HCO3 ABG O2 Saturation ABG Base Excess ABG Hemoglobin Oxyhemoglobin Sodium Potassium Chloride Carbon Dioxide 33 H BUN Creatinine 0.5 L Glucose 109 H POC Glucose 117 H 109 H Calcium 7.6 L Phosphorus AST ALT Ammonia Albumin 03/08/22 03/09/22 03/10/22 23:56 11:15 03:57 WBC RBC 2.99 L Hgb 9.9 L Hct 30.3 L MCV 102 H MCH 33 H MCHC RDW 16.8 H Lymph % (Auto) 13.3 L [place] % (Auto) 12.5 H Lymph # (Auto) [place] # (Auto) 1.3 H Seg Neutrophils % 72.4 H Seg Neuts % (Manual) Lymphocytes % (Manual) Seg Neutrophils # Seg Neutrophils # Man Lymphocytes # (Manual) PT INR ABG pH ABG pO2 ABG HCO3 ABG O2 Saturation ABG Base Excess ABG Hemoglobin Oxyhemoglobin Sodium Potassium Chloride Carbon Dioxide BUN Creatinine Glucose POC Glucose 106 H 110 H Calcium Phosphorus AST ALT Ammonia Albumin 03/10/22 03/10/22 03/10/22 03:57 04:50 16:04 WBC RBC Hgb Hct MCV MCH MCHC RDW Lymph % (Auto) [place] % (Auto) Lymph # (Auto) [place] # (Auto) Seg Neutrophils % Seg Neuts % (Manual) Lymphocytes % (Manual) Seg Neutrophils # Seg Neutrophils # Man Lymphocytes # (Manual) PT INR ABG pH 7.465 H ABG pO2 ABG HCO3 31.9 H ABG O2 Saturation ABG Base Excess 7.3 H ABG Hemoglobin 11.0 L Oxyhemoglobin Sodium Potassium 3.4 L Chloride Carbon Dioxide BUN Creatinine 0.6 L Glucose POC Glucose 115 H Calcium 8.1 L Phosphorus AST ALT Ammonia Albumin 1.9 L 03/11/22 03/11/22 03/11/22 04:02 04:02 04:02 WBC 12.0 H RBC 2.81 L Hgb 9.2 L Hct 29.1 L MCV 103 H MCH 33 H MCHC RDW 17.5 H Lymph % (Auto) [place] % (Auto) Lymph # (Auto) [place] # (Auto) Seg Neutrophils % Seg Neuts % (Manual) Lymphocytes % (Manual) Seg Neutrophils # Seg Neutrophils # Man Lymphocytes # (Manual) PT 16.2 H INR 1.16 H ABG pH ABG pO2 ABG HCO3 ABG O2 Saturation ABG Base Excess ABG Hemoglobin Oxyhemoglobin Sodium Potassium Chloride Carbon Dioxide BUN Creatinine 0.5 L Glucose 104 H POC Glucose Calcium 7.9 L Phosphorus AST ALT Ammonia Albumin 03/11/22 03/11/22 03/11/22 05:10 11:07 16:32 WBC RBC Hgb Hct MCV MCH MCHC RDW Lymph % (Auto) [place] % (Auto) Lymph # (Auto) [place] # (Auto) Seg Neutrophils % Seg Neuts % (Manual) Lymphocytes % (Manual) Seg Neutrophils # Seg Neutrophils # Man Lymphocytes # (Manual) PT INR ABG pH 7.476 H ABG pO2 ABG HCO3 29.7 H ABG O2 Saturation ABG Base Excess 5.7 H ABG Hemoglobin 9.1 L Oxyhemoglobin Sodium Potassium Chloride Carbon Dioxide BUN Creatinine Glucose POC Glucose 108 H 121 H Calcium Phosphorus AST ALT Ammonia Albumin 03/12/22 05:51 WBC RBC Hgb Hct MCV MCH MCHC RDW Lymph % (Auto) [place] % (Auto) Lymph # (Auto) [place] # (Auto) Seg Neutrophils % Seg Neuts % (Manual) Lymphocytes % (Manual) Seg Neutrophils # Seg Neutrophils # Man Lymphocytes # (Manual) PT INR ABG pH ABG pO2 ABG HCO3 ABG O2 Saturation ABG Base Excess ABG Hemoglobin Oxyhemoglobin Sodium Potassium Chloride Carbon Dioxide BUN Creatinine Glucose POC Glucose 116 H Calcium Phosphorus AST ALT Ammonia Albumin
--- NOTE | 2022-03-12 14:13 | Progress Note ---
<CARSON ROSS ZiaRadha - Last Filed: 03/12/22 14:15> Assessment and Plan Assessment and plan: This is a 51-year-old male with HTN, seizure disorder, Down syndrome, HLD, partial blindness admitted with aspiration pneumonia, probable bronchogenic carcinoma, acute hypoxic respiratory failure and acute encephalopathy Neuro: Acute encephalopathy, h/o seizure disorder, Down syndrome, partial blindness -fent IVP -Reorientation as needed -Maintain sleep-wake cycle -aspiration/seizure precautions -As needed analgesia -CT head showed no acute abnormality -Continue Keppra Cardiac: h/o HTN, HLD -Cardiology consulted, appreciate recommendations -Blood pressure monitoring per protocol -Midodrine TID Respiratory: Acute hypoxic respiratory failure, ruled out bronchogenic carcinoma -CCM consulted, appreciate recommendations -Intubated on 02/24 with a 8.0 at 23 at the lips but extubated 02/28 -reintubated 02/28 with 8.0 OETT -Vent settings: AC rate 14, TV 360, PEEP 6, FO2 30% -See RT notes for titration -VAP bundle -SPO2 monitoring -02/18 CTA chest showed no evidence of pulmonary embolism, suspected bronchogenic carcinoma with associated obstruction of the right lower lobe proximal bronchus segment, 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 adenopathy and suspected to left lower lobe metastatic nodule -02/26 Bronch->mucous, no lesion noted -02/27 CT chest showed right mainstem bronchus patent with small amount of interval bronchial fluid which may be mucus (this may account for the appearance of the prior CTA chest fluid-filled airway rather than entering bronchial lesion), previously seen complete left lower lobe since related to bronchial occlusion has significantly improved, there is persistent compressive atelectasis in the right lower lung secondary to the pleural effusion, bilateral pleural effusions, right lung pneumonia -CT neck showed no acute changes -s/p steroids GI: Moderate protein calorie malnutrition -24 hours + 988 mL -PPI -NTR consulted for tube feedings -BR: Senokot S : NAD -Monitor intake and output -Renally dose medications -Avoid nephrotoxic medications -Trend BMP ID: Aspiration PNA (resolved) -S/p Rocephin for 5 days (02/19-02/24) -Monitor WBC and temperature curve Endo: NAD -Avoid hypoglycemia -Accu-Cheks every 6 -Avoid hypoglycemia Heme: NAD -Trend CBC -Transfuse hemoglobin less than 7 -SCDs to BLE while in bed The high probability of a clinically significant, sudden or life threatening deterioration of the [resp] system(s) required my full and direct attention, intervention and personal management. The aggregate critical care time was [60] minutes. This time is in addition to time spent performing reported procedures but includes the following: [x] Data Review and interpretation [x] Patient assessment and monitoring of vital signs [x] Documentation [x] Medication orders and management Disposition Plan: icu Total Time Spent with Patient (Minutes): 60 History Interval history: This is a 51-year-old male with HTN, seizure disorder, Down syndrome, HLD, and partial blindness was a resident of the [facility] who presented to emergency department on 02/19 for evaluation of change in mental status. Of note patient was recently discharged a few weeks ago for a seizure disorder and UTI. Upon arrival to the emergency department patient was noted to be hypoxic with SPO2 in the 80s on a nonrebreather with difficulty breathing. Work-up in the emergency department revealed CXR which showed elevation of the right hemidiaphragm, right lower lung atelectasis and effusion with mild increased pulmonary vascularity but no pneumothorax and CT of the head did not show any acute ab normality. 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 Patient was admitted to the hospitalist service to the floor. Hospital course to date: 02/19/2022. Consult pulmonary for further evaluation and possible bronchoscopy. I suspect patient has component of aspiration pneumonia as well. We will obtain a speech therapy evaluation for swallowing and start empiric antibiotics. Continue O2 supplementation to maintain sats greater than 92%. 02/20/2022. Pulmonary feels that the abnormality seen on CT scan is highly unlikely for a mass given negative chest x-ray 1 month ago and no risk factors. Etiology is likely secondary to aspiration from possibly a foreign body most li carey food with atelectasis of the right lower lobe. Bronchoscopy is needed in the case to evaluate to see if lung mass is there vs foreign body, but at this time not able to do because no identifiable person that is able to give consent. Continue aspiration precautions and continue speech therapy evaluation for swallowing. Keep n.p.o. for now 02/21/2022. Patient remains NPO. Consider DHT placement. Follow-up with speech therapy evaluation. Pulmonology to consider bronchoscopy if able to obtain consent. Continue IV antibiotics for aspiration pneumonia 02/22/2022. Patient remains NPO. Consider DHT placement. Follow-up with speech therapy evaluation. Pulmonology to consider bronchoscopy if able to obtain consent. Continue IV antibiotics for aspiration pneumonia 02/23/2022. DHT placed yesterday. TF initiated for nutritional support. Patient currently with strict NPO. Aspiration precautions. Pulmonology to consider bronchoscopy if able to obtain consent. Continue IV antibiotics for aspiration pneumonia 02/24: Patient was transferred to the ICU for further monitoring. This morning patient remained on high flow nasal cannula on 40 L/100% and despite repeated nasotracheal suctioning patient SPO2 remained in the 80s. Patient was placed on nonrebreather and SPO2 increased to upper 80s. Patient was subsequently intubated by anesthesia. Started on sedation. 02/25: Patient remains sedated on fentanyl, potassium and magnesium repleted. IV fluids and amlodipine discontinued. Possible bronchoscopy tomorrow. 02/26: Patient had a bronchoscopy today which showed mucus and no endobronchial lesions or masses. FiO2 was increased to 100 during and postprocedure weaning a s tolerated. Repeat CXR is much improved after bronc. Given 1 L LR bolus due to hypotension. No acute events reported overnight. 02/27: Decreased PEEP, will repeat CT of chest. no acute changes overnight. 02/28: Patient was extubated today however had to be be intubated shortly after. Patient ETT looked mispositioned on x-ray and Dr. Alonzo did do a bedside bronc. Patient was briefly hypotensive and on Levophed postintubation however Levophed was quickly titrated off and patient did not require central line. No acute events reported overnight. Will obtain CT neck d/t difficulty intubating. Ethic committee consulted. 03/01: Overnight patient was hypotensive and started on IVF. Patient started on steroids as no air leak noted and hypotension and given 2 L LR 03/02: Overnight patient received bolus per RN report, no orders seen. Continue supportive care. 03/04: MAIDA overnight. Remains stable on the vent. [facility]. Continue current supportive measures 03/05: MAIDA overnight. [facility] for [facility] and PEG. Midodrine held yesterday, HR improved. Continue current supportive measures. Daily PSV trial as tolerated per CCM 03/06: Remains stable on the vent. Continue current supportive measures, daily PSV trial per CCM. Awaiting on desicion for possible trach and PEG. 03/07: MAIDA overnight, remains stable. Continue daily PSV trial as tolerated. Awaiting on desicion for possible trach and PEG. 03/08: Patient failed PSV trial this am due to tachycardia and increase RR. Continue supportive measures and daily PSV trial as tolerated. Possible discussion with ethics and CCM on Thursday in regards to medical necessity, may need to consider two physician consent if no one is able to claim responsibility for this patient. 03/09: MAIDA overnight. Continue current supportive measures and daily PSV trail as tolerated. Awaiting on decision for possible trach and PEG, discussion with Ethics possibly tomorrow per CCM. 03/10: no acute events overnight, PSV today. replete potassium. 03/11: No acute events reported overnight, patient failed PSV yesterday and will repeat today. Hospital to start guardianship process. 03/12: No acute events overnight. PSV today Hospitalist Physical - Constitutional Vitals: Temp Pulse Resp BP Pulse Ox 98 F 76 14 90/48 97 03/12/22 08:00 03/12/22 08:20 03/12/22 08:20 03/12/22 12:00 03/12/22 12:00 General appearance: Present: no acute distress, well-nourished - EENT Eyes: Present: PERRL, EOM intact ENT: dentition normal - Neck Neck: Present: normal ROM - Respiratory Respiratory effort: normal Respiratory: bilateral: diminished, rhonchi - Cardiovascular Rhythm: regular Heart Sounds: Present: S1 & S2. Absent: systolic murmur, diastolic murmur - Extremities Extremities: no ischemia, pulses intact, pulses symmetrical, No edema, normal temperature, normal color Peripheral Pulses: within normal limits - Abdominal General gastrointestinal: soft, non-tender, non-distended, normal bowel sounds - Psychiatric Psychiatric: other - Neurologic Neurologic: other (Nonverbal at baseline, does not follow commands, pupils equal and reactive) - Allied Health Allied health notes reviewed: nursing, RT, social work HEART Score - HEART Score Troponin: Troponin T < 0.010 ng/mL (0.00-0.029) 02/18/22 21:02 Results - Labs CBC & Chem 7: 03/11/22 04:02 03/11/22 04:02 Labs: Laboratory Last Values WBC 12.0 K/mm3 (4.5-11.0) H 03/11/22 04:02 RBC 2.81 M/mm3 (3.65-5.03) L 03/11/22 04:02 Hgb 9.2 gm/dl (11.8-15.2) L 03/11/22 04:02 Hct 29.1 % (35.5-45.6) L 03/11/22 04:02 MCV 103 fl (84-94) H 03/11/22 04:02 MCH 33 pg (28-32) H 03/11/22 04:02 MCHC 32 % (32-34) 03/11/22 04:02 RDW 17.5 % (13.2-15.2) H 03/11/22 04:02 Plt Count 319 K/mm3 (140-440) 03/11/22 04:02 Lymph % (Auto) 13.3 % (13.4-35.0) L 03/10/22 03:57 [place] % (Auto) 12.5 % (0.0-7.3) H 03/10/22 03:57 Eos % (Auto) 1.4 % (0.0-4.3) 03/10/22 03:57 Baso % (Auto) 0.4 % (0.0-1.8) 03/10/22 03:57 Lymph # (Auto) 1.3 K/mm3 (1.2-5.4) 03/10/22 03:57 [place] # (Auto) 1.3 K/mm3 (0.0-0.8) H 03/10/22 03:57 Eos # (Auto) 0.1 K/mm3 (0.0-0.4) 03/10/22 03:57 Baso # (Auto) 0.0 K/mm3 (0.0-0.1) 03/10/22 03:57 Add Manual Diff Complete 03/03/22 03:54 Total Counted 100 03/03/22 03:54 Seg Neutrophils % 72.4 % (40.0-70.0) H 03/10/22 03:57 Seg Neuts % (Manual) 95.0 % (40.0-70.0) H 03/03/22 03:54 Band Neutrophils % 0 % 03/03/22 03:54 Lymphocytes % (Manual) 3.0 % (13.4-35.0) L 03/03/22 03:54 Reactive Lymphs % (Man) 0 % 03/03/22 03:54 Monocytes % (Manual) 2.0 % (0.0-7.3) 03/03/22 03:54 Eosinophils % (Manual) 0 % (0.0-4.3) 03/03/22 03:54 Basophils % (Manual) 0 % (0.0-1.8) 03/03/22 03:54 Metamyelocytes % 0 % 03/03/22 03:54 Myelocytes % 0 % 03/03/22 03:54 Promyelocytes % 0 % 03/03/22 03:54 Blast Cells % 0 % 03/03/22 03:54 Nucleated RBC % Not Reportable 03/03/22 03:54 Seg Neutrophils # 7.4 K/mm3 (1.8-7.7) 03/10/22 03:57 Seg Neutrophils # Man 18.5 K/mm3 (1.8-7.7) H 03/03/22 03:54 Band Neutrophils # 0.0 K/mm3 03/03/22 03:54 Lymphocytes # (Manual) 0.6 K/mm3 (1.2-5.4) L 03/03/22 03:54 Abs React Lymphs (Man) 0.0 K/mm3 03/03/22 03:54 Monocytes # (Manual) 0.4 K/mm3 (0.0-0.8) 03/03/22 03:54 Eosinophils # (Manual) 0.0 K/mm3 (0.0-0.4) 03/03/22 03:54 Basophils # (Manual) 0.0 K/mm3 (0.0-0.1) 03/03/22 03:54 Metamyelocytes # 0.0 K/mm3 03/03/22 03:54 Myelocytes # 0.0 K/mm3 03/03/22 03:54 Promyelocytes # 0.0 K/mm3 03/03/22 03:54 Blast Cells # 0.0 K/mm3 03/03/22 03:54 WBC Morphology Not Reportable 03/03/22 03:54 Hypersegmented Neuts Not Reportable 03/03/22 03:54 Hyposegmented Neuts Not Reportable 03/03/22 03:54 Hypogranular Neuts Not Reportable 03/03/22 03:54 Smudge Cells Not Reportable 03/03/22 03:54 Toxic Granulation Not Reportable 03/03/22 03:54 Toxic Vacuolation Not Reportable 03/03/22 03:54 Dohle Bodies Not Reportable 03/03/22 03:54 Pelger-Huet Anomaly Not Reportable 03/03/22 03:54 Lakshmi Rods Not Reportable 03/03/22 03:54 Platelet Estimate Consistent w auto 03/03/22 03:54 Clumped Platelets Not Reportable 03/03/22 03:54 Plt Clumps, EDTA Not Reportable 03/03/22 03:54 Large Platelets Not Reportable 03/03/22 03:54 Giant Platelets Not Reportable 03/03/22 03:54 Platelet Satelliting Not Reportable 03/03/22 03:54 Plt Morphology Comment Not Reportable 03/03/22 03:54 RBC Morphology Not Reportable 03/03/22 03:54 Dimorphic RBCs Not Reportable 03/03/22 03:54 Polychromasia Not Reportable 03/03/22 03:54 Hypochromasia Not Reportable 03/03/22 03:54 Poikilocytosis Not Reportable 03/03/22 03:54 Anisocytosis 1+ 03/03/22 03:54 Microcytosis Not Reportable 03/03/22 03:54 Macrocytosis Not Reportable 03/03/22 03:54 Spherocytes Not Reportable 03/03/22 03:54 Pappenheimer Bodies Not Reportable 03/03/22 03:54 Sickle Cells Not Reportable 03/03/22 03:54 Target Cells Not Reportable 03/03/22 03:54 Tear Drop Cells Not Reportable 03/03/22 03:54 Ovalocytes Not Reportable 03/03/22 03:54 Helmet Cells Not Reportable 03/03/22 03:54 Orellana-Searcy Bodies Not Reportable 03/03/22 03:54 [place] Rings Not Reportable 03/03/22 03:54 [place] Cells Not Reportable 03/03/22 03:54 Bite Cells Not Reportable 03/03/22 03:54 Crenated Cell Not Reportable 03/03/22 03:54 Elliptocytes Not Reportable 03/03/22 03:54 Acanthocytes (Spur) Not Reportable 03/03/22 03:54 Rouleaux Not Reportable 03/03/22 03:54 Hemoglobin C Crystals Not Reportable 03/03/22 03:54 Schistocytes Not Reportable 03/03/22 03:54 Malaria parasites Not Reportable 03/03/22 03:54 Cash Bodies Not Reportable 03/03/22 03:54 Hem Pathologist Commnt No 03/03/22 03:54 PT 16.2 Sec. (12.2-14.9) H 03/11/22 04:02 INR 1.16 (0.87-1.13) H 03/11/22 04:02 ABG pH 7.476 pH Units (7.350-7.450) H 03/11/22 05:10 ABG pCO2 41.2 mm Hg 03/11/22 05:10 ABG pO2 84.0 mm Hg (80.0-90.0) 03/11/22 05:10 ABG HCO3 29.7 mmol/L (20.0-26.0) H 03/11/22 05:10 ABG O2 Saturation 97.1 % (95.0-99.0) 03/11/22 05:10 ABG O2 Content 12.3 (0.0-44) 03/11/22 05:10 ABG Base Excess 5.7 mmol/L (-2.0-3.0) H 03/11/22 05:10 ABG Hemoglobin 9.1 gm/dl (14.0-18.0) L 03/11/22 05:10 ABG Carboxyhemoglobin 1.7 % (0.0-5.0) 03/11/22 05:10 ABG Methemoglobin 0.5 % (0.0-1.5) 03/11/22 05:10 Oxyhemoglobin 95.0 % (95.0-99.0) 03/11/22 05:10 FiO2 30 % 03/11/22 05:10 Sodium 139 mmol/L (137-145) 03/11/22 04:02 Potassium 3.8 mmol/L (3.6-5.0) 03/11/22 04:02 Chloride 103.6 mmol/L (98-107) 03/11/22 04:02 Carbon Dioxide 26 mmol/L (22-30) 03/11/22 04:02 Anion Gap 13 mmol/L 03/11/22 04:02 BUN 16 mg/dL (9-20) 03/11/22 04:02 Creatinine 0.5 mg/dL (0.8-1.3) L 03/11/22 04:02 Estimated GFR > 60 ml/min 03/11/22 04:02 BUN/Creatinine Ratio 32 % 03/11/22 04:02 Glucose 104 mg/dL (75-100) H 03/11/22 04:02 POC Glucose 116 mg/dL (70-105) H 03/12/22 05:51 Lactic Acid 1.20 mmol/L (0.7-2.0) 02/18/22 21:02 Calcium 7.9 mg/dL (8.4-10.2) L 03/11/22 04:02 Phosphorus 3.50 mg/dL (2.5-4.5) 03/11/22 04:02 Magnesium 2.00 mg/dL (1.7-2.3) 03/11/22 04:02 Total Bilirubin 0.30 mg/dL (0.1-1.2) 03/10/22 03:57 AST 17 units/L (5-40) 03/10/22 03:57 ALT 18 units/L (7-56) 03/10/22 03:57 Alkaline Phosphatase 89 units/L (35-129) 03/10/22 03:57 Ammonia 14.0 umol/L (25-60) L 02/18/22 23:22 Troponin T < 0.010 ng/mL (0.00-0.029) 02/18/22 21:02 Total Protein 6.6 g/dL (6.3-8.2) 03/10/22 03:57 Albumin 1.9 g/dL (3.9-5) L 03/10/22 03:57 Albumin/Globulin Ratio 0.4 % 03/10/22 03:57 Urine Color Dark yellow (Yellow) 02/18/22 Unknown Urine Turbidity Clear (Clear) 02/18/22 Unknown Urine pH 7.0 (5.0-7.0) 02/18/22 Unknown Ur Specific [place] 1.015 (1.003-1.030) 02/18/22 Unknown Urine Protein <15 mg/dl mg/dL (Negative) 02/18/22 Unknown Urine Glucose (UA) Negative mg/dL (Negative) 02/18/22 Unknown Urine Ketones Negative mg/dL (Negative) 02/18/22 Unknown Urine Blood Trace (Negative) 02/18/22 Unknown Urine Nitrite Negative (Negative) 02/18/22 Unknown Urine Bilirubin Negative (Negative) 02/18/22 Unknown Urine Urobilinogen < 2.0 mg/dL (<2.0) 02/18/22 Unknown Ur Leukocyte Esterase Negative (Negative) 02/18/22 Unknown Urine WBC (Auto) 2.0 /HPF (0.0-6.0) 02/18/22 Unknown Urine RBC (Auto) 9.0 /HPF (0.0-6.0) 02/18/22 Unknown Urine Mucus Few /HPF 02/18/22 Unknown Urine Opiates Screen Negative 02/18/22 Unknown Urine Methadone Screen Negative 02/18/22 Unknown Ur Barbiturates Screen Negative 02/18/22 Unknown Ur Phencyclidine Scrn Negative 02/18/22 Unknown Ur Amphetamines Screen Negative 02/18/22 Unknown U Benzodiazepines Scrn Negative 02/18/22 Unknown Urine Cocaine Screen Negative 02/18/22 Unknown U Marijuana (THC) Screen Negative 02/18/22 Unknown Drugs of Abuse Note Disclamer 02/18/22 Unknown Plasma/Serum Alcohol < 0.01 % (0-0.07) 02/18/22 21:02 Horowitz/IV: Voiding Method Indwelling Catheter Active Medications - Current Medications Current Medications: Generic Name Dose Route Start Last Admin Trade Name Freq PRN Reason Stop Dose Admin Acetaminophen 650 mg 03/03/22 09:00 Acetaminophen 325 Mg/10.15 Ml Oral Liqd Unit Dose FEEDTUBE Q4H PRN Pain, Mild (1-3); TEMP > 100.4 Famotidine 20 mg 02/25/22 10:00 03/12/22 10:19 Famotidine 20 Mg Tab FEEDTUBE 20 mg BID LAZARUS Administration Heparin Sodium (Porcine) 5,000 unit 02/19/22 06:00 03/12/22 13:06 Heparin 5,000 Unit/1 Ml Vial SUB-Q 5,000 unit Q8HR LAZARUS Administration Hydrophilic Ointment 1 applic 02/24/22 15:05 Lip Therapy Vaseline TP Q2HR PRN Dry Lips Levetiracetam 500 mg 02/25/22 22:00 03/12/22 10:20 Levetiracetam 500 Mg/5 Ml Oral Liqd FEEDTUBE 500 mg BID LAZARUS Administration Levothyroxine Sodium 25 mcg 02/26/22 06:00 03/12/22 06:11 Levothyroxine 25 Mcg Tab FEEDTUBE 25 mcg QAM@0600 LAZARUS Administration Magnesium Hydroxide 30 ml 02/19/22 02:02 Magnesium Hydroxide (Mom) Oral Liqd Udc PO Q4H PRN Constipation Morphine Sulfate 2 mg 02/19/22 02:02 Morphine 2 Mg/1 Ml Inj IV Q4H PRN Pain, Moderate (4-6) Morphine Sulfate 4 mg 02/19/22 02:02 Morphine 4 Mg/1 Ml Inj IV Q4H PRN Pain , Severe (7-10) Multi-Ingred Cream/Lotion/Oil/Oint 1 applic 02/24/22 15:05 Mineral Oil/Petrolatum, White Ophth Oint 3.5 Gm OU Q4HR PRN Dry Eye(s) Ondansetron HCl 4 mg 02/19/22 02:02 Ondansetron 4 Mg/2 Ml Inj IV Q8H PRN Nausea And Vomiting Pravastatin Sodium 40 mg 02/25/22 22:00 03/11/22 22:16 Pravastatin 40 Mg Tab FEEDTUBE 40 mg QHS LAZARUS Administration Senna/Docusate Sodium 1 tab 02/24/22 22:00 03/12/22 10:21 Sennosides/Docusate Sodium 8.6/50 Mg Tab FEEDTUBE 1 tab BID LAZARUS Administration Sodium Chloride 10 ml 02/19/22 10:00 03/12/22 10:22 Sodium Chloride 0.9% 10 Ml Flush Syringe IV 10 ml BID LAZARUS Administration Sodium Chloride 10 ml 02/19/22 02:02 03/03/22 14:21 Sodium Chloride 0.9% 10 Ml Flush Syringe IV 10 ml PRN PRN Administration LINE FLUSH Nutrition/Malnutrition Assess - Dietary Evaluation Nutrition/Malnutrition Findings: Nutrition Notes Start: 02/19/22 14:29 Freq: Status: Active Protocol: Document 03/07/22 14:34 IVAN (Rec: 03/07/22 14:44 IVAN [email or web address]) Nutrition Notes Initial or Follow up Reassessment Current Diagnosis Hypertension,Respiratory Failure,Hyperlipidemia Other Pertinent Diagnosis Asp pneu, acute encephalopathy , seizure d/o, partial blindness Current Diet TF - Vital AF 1.2 at 50ml/hr Labs/Tests Reviewed Pertinent Medications Reviewed Height 5 ft 3 in Weight 63.2 kg [place] Body Weight (kg) 56.36 BMI 24.7 Weight change and time frame Unable to obtain current wt; bed scale not working - RN aware Weight Status Appropriate Subjective/Other Information Observed TF infusing at goal rate. Pt tolerating TF and remains on vent support. Pt been intubated since 02/24/22 via ETT. Trach/PEG placement pending. Percent of energy/protein needs met: 90% energy 100% pro Burn Absent Trauma Absent #1 Nutrition Diagnosis Inadequate oral intake Diagnosis Progress(for reassessment Continues documentation) Is patient on ventilator? Yes Is Patient Ambulatory and/or Out of Bed No REE-([place] [facility]or-confined to bed) [phone] Calculation [facility] Additional Notes Pro needs 1.2-2g/k-126g/ day Fluid needs 1ml/kcal Nutrition Intervention Nutrition Support: Continue Vital AF 1.2 at 50ml/ hr with 75ml water flush q4h. Kcal 1,440 Protein (gm) 90 Carbohydrates (gm) 133 Fat (gm) 65 Fluid (mL) 973 Fiber (gm) 6 Goal #1 TF tolerance Goal #2 TF to meet at least 75% energy and pro needs Follow-Up By: 03/14/22 Additional Comments F/U: stable TF, trach/PEG placement, vent status, wt <SILVIA BUCHANAN - Last Filed: 03/14/22 14:30> History Interval history: I saw and evaluated the patient. Discussed with the nurse practitioner and agree with their findings and plan as documented in this note. Hospitalist Physical - Constitutional Vitals: Temp Pulse Resp BP Pulse Ox 97.6 F 83 13 112/63 99 03/14/22 12:00 03/14/22 14:00 03/14/22 14:00 03/14/22 14:00 03/14/22 14:00 HEART Score - HEART Score Troponin: Troponin T < 0.010 ng/mL (0.00-0.029) 02/18/22 21:02 Results - Labs CBC & Chem 7: 03/14/22 03:58 03/14/22 03:58 Labs: Laboratory Last Values WBC 8.5 K/mm3 (4.5-11.0) 03/14/22 03:58 RBC 2.97 M/mm3 (3.65-5.03) L 03/14/22 03:58 Hgb 9.7 gm/dl (11.8-15.2) L 03/14/22 03:58 Hct 30.0 % (35.5-45.6) L 03/14/22 03:58 MCV 101 fl (84-94) H 03/14/22 03:58 MCH 33 pg (28-32) H 03/14/22 03:58 MCHC 33 % (32-34) 03/14/22 03:58 RDW 16.7 % (13.2-15.2) H 03/14/22 03:58 Plt Count 384 K/mm3 (140-440) 03/14/22 03:58 Lymph % (Auto) 13.3 % (13.4-35.0) L 03/10/22 03:57 [place] % (Auto) 12.5 % (0.0-7.3) H 03/10/22 03:57 Eos % (Auto) 1.4 % (0.0-4.3) 03/10/22 03:57 Baso % (Auto) 0.4 % (0.0-1.8) 03/10/22 03:57 Lymph # (Auto) 1.3 K/mm3 (1.2-5.4) 03/10/22 03:57 [place] # (Auto) 1.3 K/mm3 (0.0-0.8) H 03/10/22 03:57 Eos # (Auto) 0.1 K/mm3 (0.0-0.4) 03/10/22 03:57 Baso # (Auto) 0.0 K/mm3 (0.0-0.1) 03/10/22 03:57 Add Manual Diff Complete 03/03/22 03:54 Total Counted 100 03/03/22 03:54 Seg Neutrophils % 72.4 % (40.0-70.0) H 03/10/22 03:57 Seg Neuts % (Manual) 95.0 % (40.0-70.0) H 03/03/22 03:54 Band Neutrophils % 0 % 03/03/22 03:54 Lymphocytes % (Manual) 3.0 % (13.4-35.0) L 03/03/22 03:54 Reactive Lymphs % (Man) 0 % 03/03/22 03:54 Monocytes % (Manual) 2.0 % (0.0-7.3) 03/03/22 03:54 Eosinophils % (Manual) 0 % (0.0-4.3) 03/03/22 03:54 Basophils % (Manual) 0 % (0.0-1.8) 03/03/22 03:54 Metamyelocytes % 0 % 03/03/22 03:54 Myelocytes % 0 % 03/03/22 03:54 Promyelocytes % 0 % 03/03/22 03:54 Blast Cells % 0 % 03/03/22 03:54 Nucleated RBC % Not Reportable 03/03/22 03:54 Seg Neutrophils # 7.4 K/mm3 (1.8-7.7) 03/10/22 03:57 Seg Neutrophils # Man 18.5 K/mm3 (1.8-7.7) H 03/03/22 03:54 Band Neutrophils # 0.0 K/mm3 03/03/22 03:54 Lymphocytes # (Manual) 0.6 K/mm3 (1.2-5.4) L 03/03/22 03:54 Abs React Lymphs (Man) 0.0 K/mm3 03/03/22 03:54 Monocytes # (Manual) 0.4 K/mm3 (0.0-0.8) 03/03/22 03:54 Eosinophils # (Manual) 0.0 K/mm3 (0.0-0.4) 03/03/22 03:54 Basophils # (Manual) 0.0 K/mm3 (0.0-0.1) 03/03/22 03:54 Metamyelocytes # 0.0 K/mm3 03/03/22 03:54 Myelocytes # 0.0 K/mm3 03/03/22 03:54 Promyelocytes # 0.0 K/mm3 03/03/22 03:54 Blast Cells # 0.0 K/mm3 03/03/22 03:54 WBC Morphology Not Reportable 03/03/22 03:54 Hypersegmented Neuts Not Reportable 03/03/22 03:54 Hyposegmented Neuts Not Reportable 03/03/22 03:54 Hypogranular Neuts Not Reportable 03/03/22 03:54 Smudge Cells Not Reportable 03/03/22 03:54 Toxic Granulation Not Reportable 03/03/22 03:54 Toxic Vacuolation Not Reportable 03/03/22 03:54 Dohle Bodies Not Reportable 03/03/22 03:54 Pelger-Huet Anomaly Not Reportable 03/03/22 03:54 Lakshmi Rods Not Reportable 03/03/22 03:54 Platelet Estimate Consistent w auto 03/03/22 03:54 Clumped Platelets Not Reportable 03/03/22 03:54 Plt Clumps, EDTA Not Reportable 03/03/22 03:54 Large Platelets Not Reportable 03/03/22 03:54 Giant Platelets Not Reportable 03/03/22 03:54 Platelet Satelliting Not Reportable 03/03/22 03:54 Plt Morphology Comment Not Reportable 03/03/22 03:54 RBC Morphology Not Reportable 03/03/22 03:54 Dimorphic RBCs Not Reportable 03/03/22 03:54 Polychromasia Not Reportable 03/03/22 03:54 Hypochromasia Not Reportable 03/03/22 03:54 Poikilocytosis Not Reportable 03/03/22 03:54 Anisocytosis 1+ 03/03/22 03:54 Microcytosis Not Reportable 03/03/22 03:54 Macrocytosis Not Reportable 03/03/22 03:54 Spherocytes Not Reportable 03/03/22 03:54 Pappenheimer Bodies Not Reportable 03/03/22 03:54 Sickle Cells Not Reportable 03/03/22 03:54 Target Cells Not Reportable 03/03/22 03:54 Tear Drop Cells Not Reportable 03/03/22 03:54 Ovalocytes Not Reportable 03/03/22 03:54 Helmet Cells Not Reportable 03/03/22 03:54 [place]-S[place]cy Bodies Not Reportable 03/03/22 03:54 [place] Rings Not Reportable 03/03/22 03:54 [place] Cells Not Reportable 03/03/22 03:54 Bite Cells Not Reportable 03/03/22 03:54 Crenated Cell Not Reportable 03/03/22 03:54 Elliptocytes Not Reportable 03/03/22 03:54 Acanthocytes (Spur) Not Reportable 03/03/22 03:54 Rouleaux Not Reportable 03/03/22 03:54 Hemoglobin C Crystals Not Reportable 03/03/22 03:54 Schistocytes Not Reportable 03/03/22 03:54 Malaria parasites Not Reportable 03/03/22 03:54 Cash Bodies Not Reportable 03/03/22 03:54 Hem Pathologist Commnt No 03/03/22 03:54 PT 16.2 Sec. (12.2-14.9) H 03/11/22 04:02 INR 1.16 (0.87-1.13) H 03/11/22 04:02 ABG pH 7.476 pH Units (7.350-7.450) H 03/11/22 05:10 ABG pCO2 41.2 mm Hg 03/11/22 05:10 ABG pO2 84.0 mm Hg (80.0-90.0) 03/11/22 05:10 ABG HCO3 29.7 mmol/L (20.0-26.0) H 03/11/22 05:10 ABG O2 Saturation 97.1 % (95.0-99.0) 03/11/22 05:10 ABG O2 Content 12.3 (0.0-44) 03/11/22 05:10 ABG Base Excess 5.7 mmol/L (-2.0-3.0) H 03/11/22 05:10 ABG Hemoglobin 9.1 gm/dl (14.0-18.0) L 03/11/22 05:10 ABG Carboxyhemoglobin 1.7 % (0.0-5.0) 03/11/22 05:10 ABG Methemoglobin 0.5 % (0.0-1.5) 03/11/22 05:10 Oxyhemoglobin 95.0 % (95.0-99.0) 03/11/22 05:10 FiO2 30 % 03/11/22 05:10 Sodium 139 mmol/L (137-145) 03/14/22 03:58 Potassium 4.1 mmol/L (3.6-5.0) 03/14/22 03:58 Chloride 103.7 mmol/L (98-107) 03/14/22 03:58 Carbon Dioxide 29 mmol/L (22-30) 03/14/22 03:58 Anion Gap 10 mmol/L 03/14/22 03:58 BUN 15 mg/dL (9-20) 03/14/22 03:58 Creatinine 0.6 mg/dL (0.8-1.3) L 03/14/22 03:58 Estimated GFR > 60 ml/min 03/14/22 03:58 BUN/Creatinine Ratio 25 % 03/14/22 03:58 Glucose 93 mg/dL (75-100) 03/14/22 03:58 POC Glucose 100 mg/dL (70-105) 03/14/22 05:37 Lactic Acid 1.20 mmol/L (0.7-2.0) 02/18/22 21:02 Calcium 8.2 mg/dL (8.4-10.2) L 03/14/22 03:58 Phosphorus 4.10 mg/dL (2.5-4.5) 03/14/22 03:58 Magnesium 2.10 mg/dL (1.7-2.3) 03/14/22 03:58 Total Bilirubin 0.30 mg/dL (0.1-1.2) 03/10/22 03:57 AST 17 units/L (5-40) 03/10/22 03:57 ALT 18 units/L (7-56) 03/10/22 03:57 Alkaline Phosphatase 89 units/L (35-129) 03/10/22 03:57 Ammonia 14.0 umol/L (25-60) L 02/18/22 23:22 Troponin T < 0.010 ng/mL (0.00-0.029) 02/18/22 21:02 Total Protein 6.6 g/dL (6.3-8.2) 03/10/22 03:57 Albumin 1.9 g/dL (3.9-5) L 03/10/22 03:57 Albumin/Globulin Ratio 0.4 % 03/10/22 03:57 Urine Color Dark yellow (Yellow) 02/18/22 Unknown Urine Turbidity Clear (Clear) 02/18/22 Unknown Urine pH 7.0 (5.0-7.0) 02/18/22 Unknown Ur Specific [place] 1.015 (1.003-1.030) 02/18/22 Unknown Urine Protein <15 mg/dl mg/dL (Negative) 02/18/22 Unknown Urine Glucose (UA) Negative mg/dL (Negative) 02/18/22 Unknown Urine Ketones Negative mg/dL (Negative) 02/18/22 Unknown Urine Blood Trace (Negative) 02/18/22 Unknown Urine Nitrite Negative (Negative) 02/18/22 Unknown Urine Bilirubin Negative (Negative) 02/18/22 Unknown Urine Urobilinogen < 2.0 mg/dL (<2.0) 02/18/22 Unknown Ur Leukocyte Esterase Negative (Negative) 02/18/22 Unknown Urine WBC (Auto) 2.0 /HPF (0.0-6.0) 02/18/22 Unknown Urine RBC (Auto) 9.0 /HPF (0.0-6.0) 02/18/22 Unknown Urine Mucus Few /HPF 02/18/22 Unknown Urine Opiates Screen Negative 02/18/22 Unknown Urine Methadone Screen Negative 02/18/22 Unknown Ur Barbiturates Screen Negative 02/18/22 Unknown Ur Phencyclidine Scrn Negative 02/18/22 Unknown Ur Amphetamines Screen Negative 02/18/22 Unknown U Benzodiazepines Scrn Negative 02/18/22 Unknown Urine Cocaine Screen Negative 02/18/22 Unknown U Marijuana (THC) Screen Negative 02/18/22 Unknown Drugs of Abuse Note Disclamer 02/18/22 Unknown Plasma/Serum Alcohol < 0.01 % (0-0.07) 02/18/22 21:02 Horowitz/IV: Voiding Method Indwelling Catheter Active Medications - Current Medications Current Medications: Generic Name Dose Route Start Last Admin Trade Name Freq PRN Reason Stop Dose Admin Acetaminophen 650 mg 03/03/22 09:00 Acetaminophen 325 Mg/10.15 Ml Oral Liqd Unit Dose FEEDTUBE Q4H PRN Pain, Mild (1-3); TEMP > 100.4 Albuterol 2.5 mg 03/12/22 20:00 03/14/22 14:15 Albuterol 2.5 Mg/3 Ml Nebu IH 2.5 mg Q6HRT LAZARUS Administration Famotidine 20 mg 02/25/22 10:00 03/14/22 09:54 Famotidine 20 Mg Tab FEEDTUBE 20 mg BID LAZARUS Administration Heparin Sodium (Porcine) 5,000 unit 02/19/22 06:00 03/14/22 06:42 Heparin 5,000 Unit/1 Ml Vial SUB-Q 5,000 unit Q8HR LAZARUS Administration Hydrophilic Ointment 1 applic 02/24/22 15:05 Lip Therapy Vaseline TP Q2HR PRN Dry Lips Levetiracetam 500 mg 02/25/22 22:00 03/14/22 09:54 Levetiracetam 500 Mg/5 Ml Oral Liqd FEEDTUBE 500 mg BID LAZARUS Administration Levothyroxine Sodium 25 mcg 02/26/22 06:00 03/14/22 06:42 Levothyroxine 25 Mcg Tab FEEDTUBE 25 mcg QAM@0600 LAZARUS Administration Magnesium Hydroxide 30 ml 02/19/22 02:02 Magnesium Hydroxide (Mom) Oral Liqd Udc PO Q4H PRN Constipation Multi-Ingred Cream/Lotion/Oil/Oint 1 applic 02/24/22 15:05 Mineral Oil/Petrolatum, White Ophth Oint 3.5 Gm OU Q4HR PRN Dry Eye(s) Ondansetron HCl 4 mg 02/19/22 02:02 Ondansetron 4 Mg/2 Ml Inj IV Q8H PRN Nausea And Vomiting Pravastatin Sodium 40 mg 02/25/22 22:00 03/13/22 21:45 Pravastatin 40 Mg Tab FEEDTUBE 40 mg QHS LAZARUS Administration Senna/Docusate Sodium 1 tab 02/24/22 22:00 03/14/22 09:54 Sennosides/Docusate Sodium 8.6/50 Mg Tab FEEDTUBE 1 tab BID LAZARUS Administration Sodium Chloride 10 ml 02/19/22 10:00 03/14/22 09:54 Sodium Chloride 0.9% 10 Ml Flush Syringe IV 10 ml BID LAZARUS Administration Sodium Chloride 10 ml 02/19/22 02:02 03/03/22 14:21 Sodium Chloride 0.9% 10 Ml Flush Syringe IV 10 ml PRN PRN Administration LINE FLUSH Nutrition/Malnutrition Assess - Dietary Evaluation Nutrition/Malnutrition Findings: Nutrition Notes Start: 02/19/22 14:29 Freq: Status: Active Protocol: Document 03/07/22 14:34 IVAN (Rec: 03/07/22 14:44 [email or web address] [id number]) Nutrition Notes Initial or Follow up Reassessment Current Diagnosis Hypertension,Respiratory Failure,Hyperlipidemia Other Pertinent Diagnosis Asp pneu, acute encephalopathy , seizure d/o, partial blindness Current Diet TF - Vital AF 1.2 at 50ml/hr Labs/Tests Reviewed Pertinent Medications Reviewed Height 5 ft 3 in Weight 63.2 kg [place] Body Weight (kg) 56.36 BMI 24.7 Weight change and time frame Unable to obtain current wt; bed scale not working - RN aware Weight Status Appropriate Subjective/Other Information Observed TF infusing at goal rate. Pt tolerating TF and remains on vent support. Pt been intubated since 02/24/22 via ETT. Trach/PEG placement pending. Percent of energy/protein needs met: 90% energy 100% pro Burn Absent Trauma Absent #1 Nutrition Diagnosis Inadequate oral intake Diagnosis Progress(for reassessment Continues documentation) Is patient on ventilator? Yes Is Patient Ambulatory and/or Out of Bed No REE-([place] Jeor-confined to bed) [phone] Calculation Used for Recommendations [place] or Additional Notes Pro needs 1.2-2g/k-126g/ day Fluid needs 1ml/kcal Nutrition Intervention Nutrition Support: Continue Vital AF 1.2 at 50ml/ hr with 75ml water flush q4h. Kcal 1,440 Protein (gm) 90 Carbohydrates (gm) 133 Fat (gm) 65 Fluid (mL) 973 Fiber (gm) 6 Goal #1 TF tolerance Goal #2 TF to meet at least 75% energy and pro needs Follow-Up By: 03/14/22 Additional Comments F/U: stable TF, trach/PEG placement, vent status, wt
[2022-03-12] MEDS: PRAVASTATIN 40 MG TAB FEEDTUBE SCH (22:50)
[2022-03-13] MEDS: ALBUTEROL 2.5 MG/3 ML NEBU IH SCH ×4 (04:07→19:40)
[2022-03-13] MEDS: LEVOTHYROXINE 25 MCG TAB FEEDTUBE SCH (06:16)
[2022-03-13] MEDS: HEPARIN 5,000 UNIT/1 ML VIAL SUB-Q SCH ×3 (06:16→21:44)
[2022-03-13] MEDS: FAMOTIDINE 20 MG TAB FEEDTUBE SCH ×2 (09:55→21:44)
[2022-03-13] MEDS: levETIRAcetam 500 MG/5 ML ORAL LIQD FEEDTUBE SCH ×2 (09:55→21:44)
[2022-03-13] MEDS: SENNOSIDES/DOCUSATE SODIUM 8.6/50 MG TAB FEEDTUBE SCH ×2 (09:55→21:44)
[2022-03-13] MEDS ORDERED: SODIUM CHLORIDE 0.9% 500 ML 500 ML IV ONE (10:00)
--- NOTE | 2022-03-13 11:28 | Progress Note ---
Assessment and Plan 61 y/o male with abnormal CT of chest. 03/13/22: Day 17 of intubation. Agree with bolus and restarting of midodrine. was stopped previously secondary to bradycardia. If patient spikes temp, will culture blood and urine and repeat CXR. Continue daily PSV trials to assess ability for vent liberation. Continues to need trach however no family/guardian to provide consent. Guarded prognosis. 03/12/22: Day 16 of intubation. Following up with hospital in regards to guardian. Continue supportive measures. Guarded prognosis. 03/11/22: hospital now attempting to find emergency guardian to have consent for trach as ethics committee cannot comment on this matter so unable to help. Until then will remain intubated orally. Failed PSV yesterday, will continue to attempt on daily basis. Unfortunate situation. Guarded prognosis. 03/10/22: Today nuñez day 14 of intubation. Given patient's mental state and increased risk of aspiration, the likelihood of conventional extubation with success is very very slim and the patient has already failed this in an extremely short period of time (less than 1 hour). I suspect that he will fail again if tried and could create more difficult reintubation as he was a difficult reintubation on his failed extubation attempt. To prevent further decline and potential complications of prolonged mechanical ventilation, will discuss with ethics and the hospital to use 2 physician consent to obtain trach and peg for this patient with hopes of liberating him from the mechanical ventilator. he has very minimal vent requirements but as been stated several times above, he continues to aspirate and failed conventional extubation almost immediately. Will consult surgery today. Dr. Mancia is prepared to sign consent as well as myself. Hopeful surgery will be on board with this. Continue supportive care for now. Attempt daily PSV trials. 03/07/22: Daily PSV trials as tolerated. Still no one to step up as adult friend. patient has now been intubated since 02/24/22 and is approaching the time period in which prolonged mechanical ventilation could lead to significant complications that could be detrimental to health (infection, stenosis, malacia etc). Will discuss again with ethics but in regards to medical necessity, may need to consider two physician consent if no one is able to claim responsibility for this patient. He is a full code and we must work in his best interest to prevent further harm. Continue supportive measures but he is not a candidate for conventional extubation given his mental state, despite being on minimal support. He has already failed this before. 03/06/22: PSV trials daily. Will discuss with RT. Spoke with ethics. Plan in place and awaiting on news from [facility] and state. Continue supportive measures. Patient has been intubated since 02/24/22 and is approaching the 2 week shadi of intubation will need to make decisions soon to avoid unnecessary complications related to prolonged intubation. 03/05/22: Will follow up with ethics today. Awaiting some guidance about consent for trach and peg. This is a medical necessity to liberate patient from mechanical ventilation. Continue supportive measures. Ok with daily PSV trials 03/04/22: Follow up with ethics later this afternoon. Spoke with RT and patient does have cuff leak, will stop steroids. Stopping midodrine as BP is stable and bradycardia likely from this. 03/03/22: Await ethics eval. CM has spoken with state as well. Daily cuff leaks. Will start to wean steroids tomorrow. Midodrine can cause bradycardia. If continues or worsens will stop. Guarded prognosis. 03/02/22: Continue supportive measures. Await ethics consult before surgery consult for trach and peg. no further need for fluid boluses. Will continue stress dose steroids but have daily air leak checks by RT. Still will need trach, will not attempt extubation again. Guarded prognosis. 03/01/22: Patient is having increased urine output. THis could be the cause of new onset hypotension. Will bolus 2 more liters of LR now and reassess. If this continues may need to work up for SIADH including repeat head CT. Follow up ethics review of case. Will need trach for ventilator liberation. Overall prognosis remains guarded. 02/28/22: Will obtain CT neck, noncontrast to look for airway edema or other possible etiologies for failure. Needs ethics consult as given patient's mental state, inability to clear secretions appropriately, will need trach now that he has failed extubation. However he has no family and no POA so no one to give consent. Continue supportive measures. Guarded prognosis. 02/27/22: Continue improvement of oxygenation. Will drop PEEP down today with goal of being at 6 by in the morning. Will repeat CT scan to confirm improvement as no endobronchial lesion was seen, but also to make sure no parenchymal mass. There was no evidence of extrinsic compression during bronch. Likely extubation tomorrow post CT. 02/26/22: Repeat CXR now. Wean Vent as tolerated. Hopeful extubation soon. Mucous removed. NO ENDOBRONCHIAL LESION/MASS 02/25/22: Bronch tentatively planned for tomorrow with therapeutic scope. Awaiting GI lab to give a time. NPO after midnight. Continue high PEEP 02/24/22: WIll attempt to bronch tomorrow morning. NPO after midnight. Just received word from GI lab they are not able to do bronch tomorrow. Cancel NPO order. Continue to feed patient. Repeat ABG in AM along with CXR. 02/21/22: No new pulm recs for today. Please obtain repeat CXR likely on Thursday. If patient happens to get worse, likely not a candidate for bipap given his weak cough and mental state and inability to communicate. If worsens and requires intubation, will bronch then under emergent circumstances if no POA or family is able to be located. Continue CPT. Will discuss with RT about NT suctioning. 02/20/22: Saw speech while on the floor. Would like patient to be NPO now. Discussed with nurse on floor and with IMS. Same recs pulm way as yesterday. Would benefit from bronch if able to get consent as this is not emergent. Continue CPT and q shift NT suctioning. Reviewed admission in the past and of note, patient was recently admitted last month and had a CXR done on the 29 of January that was normal. Given this patient's medical history and the history that I obtained from the nursing staff that at the [facility] he was eating solid foods, I suspect that this is aspiration, possibly of a foreign body (most likely food) with atelectasis of the right lower lobe. It is highly unlikely that a mass evolved in size in less than a months time and patient, besides age, has no real risk factors for lung carcinoma. Discussed with the nurse and unfortunately there is no identifiable person that is able to give consent. Bronchoscopy is needed in the case to evaluate to see if lung mass is there vs foreign body, but at this time not able to do. In the meanwhile will recommend the following. 1. Will order CPT with neb therapy 3x daily 2. Suggest maybe NT suctioning q shift. May use nasal trumpet, however do not leave this device in the patient 3. Aspiration precautions 4. Consider speech eval to assess swallowing. Will continue to follow. CCT 31 minutes. Subjective Date of service: 03/13/22 Principal diagnosis: f/u Acute respiratory failure Interval history: Patient failed PSV today by going apnic within minutes of switching to PSV. has had some marginal BP's so restarted back on Midodrine and given a bolus. Objective Vital Signs - 12hr 03/13/22 03/13/22 03/13/22 00:00 01:00 02:00 Temperature 98 F Pulse Rate 72 68 65 Pulse Rate [ Bilateral Throughout] Respiratory 14 14 14 Rate Respiratory Rate [Bilateral Throughout] Blood Pressure 108/61 106/54 91/48 O2 Sat by Pulse 100 98 98 Oximetry 03/13/22 03/13/22 03/13/22 03:00 04:00 04:07 Temperature 98.4 F Pulse Rate 56 L 72 Pulse Rate [ 57 L Bilateral Throughout] Respiratory 14 14 Rate Respiratory 14 Rate [Bilateral Throughout] Blood Pressure 92/47 83/43 O2 Sat by Pulse 99 100 Oximetry 03/13/22 03/13/22 03/13/22 04:08 05:00 06:01 Temperature Pulse Rate 57 L 54 L 78 Pulse Rate [ Bilateral Throughout] Respiratory 14 15 Rate Respiratory Rate [Bilateral Throughout] Blood Pressure 83/43 83/42 106/65 O2 Sat by Pulse 98 98 96 Oximetry 03/13/22 03/13/22 03/13/22 07:01 08:00 08:43 Temperature 98.2 F Pulse Rate 89 69 64 Pulse Rate [ Bilateral Throughout] Respiratory 17 16 10 L Rate Respiratory Rate [Bilateral Throughout] Blood Pressure 106/62 86/43 86/43 O2 Sat by Pulse 94 88 98 Oximetry 03/13/22 03/13/22 08:47 08:50 Temperature Pulse Rate 67 Pulse Rate [ 72 Bilateral Throughout] Respiratory Rate Respiratory 143 H Rate [Bilateral Throughout] Blood Pressure 86/43 O2 Sat by Pulse 99 Oximetry Constitutional: alert, other (critically ill on ventilator) Eyes: non-icteric ENT: oropharynx moist Neck: supple Effort: normal Ascultation: Bilateral: diminished breath sounds, rhonchi Cardiovascular: regular rate and rhythm (no mrg) Gastrointestinal: normoactive bowel sounds, soft, non-tender (on o2 vest in place), non-distended Integumentary: normal Extremities: no cyanosis, no edema Neurologic: other (awake) Psychiatric: other (unable to assess) CBC and BMP: 03/11/22 04:02 03/11/22 04:02 ABG, PT/INR, D-dimer: ABG ABG pH 7.476 pH Units (7.350-7.450) H 03/11/22 05:10 ABG pCO2 41.2 mm Hg 03/11/22 05:10 ABG pO2 84.0 mm Hg (80.0-90.0) 03/11/22 05:10 ABG O2 Saturation 97.1 % (95.0-99.0) 03/11/22 05:10 PT/INR, D-dimer PT 16.2 Sec. (12.2-14.9) H 03/11/22 04:02 INR 1.16 (0.87-1.13) H 03/11/22 04:02 Abnormal lab findings: Abnormal Labs 02/18/22 02/18/22 02/18/22 19:34 21:02 21:02 WBC RBC Hgb Hct MCV 101 H MCH 34 H MCHC RDW 16.1 H Lymph % (Auto) Hill % (Auto) 12.4 H Lymph # (Auto) Hill # (Auto) 1.2 H Seg Neutrophils % 73.0 H Seg Neuts % (Manual) Lymphocytes % (Manual) Seg Neutrophils # Seg Neutrophils # Man Lymphocytes # (Manual) PT 16.9 H INR 1.20 H ABG pH ABG pO2 ABG HCO3 ABG O2 Saturation ABG Base Excess ABG Hemoglobin Oxyhemoglobin Sodium Potassium Chloride Carbon Dioxide BUN Creatinine Glucose POC Glucose 116 H Calcium Phosphorus AST ALT Ammonia Albumin 02/18/22 02/18/22 02/18/22 21:02 22:45 23:22 WBC RBC Hgb Hct MCV MCH MCHC RDW Lymph % (Auto) Hill % (Auto) Lymph # (Auto) Hill # (Auto) Seg Neutrophils % Seg Neuts % (Manual) Lymphocytes % (Manual) Seg Neutrophils # Seg Neutrophils # Man Lymphocytes # (Manual) PT INR ABG pH ABG pO2 55.6 L ABG HCO3 28.4 H ABG O2 Saturation 91.5 L ABG Base Excess 3.8 H ABG Hemoglobin 13.2 L Oxyhemoglobin 89.6 L Sodium Potassium 5.1 H Chloride Carbon Dioxide BUN Creatinine Glucose 102 H POC Glucose Calcium Phosphorus AST 48 H ALT 64 H Ammonia 14.0 L Albumin 2.7 L 02/20/22 02/20/22 02/23/22 04:59 04:59 06:29 WBC 11.4 H RBC Hgb Hct MCV 103 H MCH 33 H MCHC RDW 16.5 H Lymph % (Auto) 5.5 L Hill % (Auto) 12.1 H Lymph # (Auto) 0.6 L Hill # (Auto) 1.4 H Seg Neutrophils % 81.4 H Seg Neuts % (Manual) Lymphocytes % (Manual) Seg Neutrophils # 9.2 H Seg Neutrophils # Man Lymphocytes # (Manual) PT INR ABG pH ABG pO2 ABG HCO3 ABG O2 Saturation ABG Base Excess ABG Hemoglobin Oxyhemoglobin Sodium Potassium Chloride Carbon Dioxide BUN Creatinine Glucose POC Glucose 113 H Calcium 8.2 L Phosphorus AST ALT Ammonia Albumin 02/23/22 02/23/22 02/24/22 11:22 16:10 00:02 WBC RBC Hgb Hct MCV MCH MCHC RDW Lymph % (Auto) Hill % (Auto) Lymph # (Auto) Hill # (Auto) Seg Neutrophils % Seg Neuts % (Manual) Lymphocytes % (Manual) Seg Neutrophils # Seg Neutrophils # Man Lymphocytes # (Manual) PT INR ABG pH ABG pO2 ABG HCO3 ABG O2 Saturation ABG Base Excess ABG Hemoglobin Oxyhemoglobin Sodium Potassium Chloride Carbon Dioxide BUN Creatinine Glucose POC Glucose 108 H 115 H 109 H Calcium Phosphorus AST ALT Ammonia Albumin 02/24/22 02/24/22 02/24/22 11:05 11:05 13:20 WBC RBC 3.55 L Hgb Hct MCV 100 H MCH 34 H MCHC RDW 15.6 H Lymph % (Auto) Hill % (Auto) Lymph # (Auto) Hill # (Auto) Seg Neutrophils % Seg Neuts % (Manual) Lymphocytes % (Manual) Seg Neutrophils # Seg Neutrophils # Man Lymphocytes # (Manual) PT INR ABG pH ABG pO2 ABG HCO3 ABG O2 Saturation ABG Base Excess ABG Hemoglobin Oxyhemoglobin Sodium 146 H Potassium 3.2 L D Chloride 108.4 H Carbon Dioxide BUN Creatinine 0.5 L Glucose POC Glucose 111 H Calcium 7.9 L Phosphorus 2.20 L AST ALT Ammonia Albumin 02/24/22 02/24/22 02/24/22 16:30 17:03 20:25 WBC RBC Hgb Hct MCV MCH MCHC RDW Lymph % (Auto) Hill % (Auto) Lymph # (Auto) Hill # (Auto) Seg Neutrophils % Seg Neuts % (Manual) Lymphocytes % (Manual) Seg Neutrophils # Seg Neutrophils # Man Lymphocytes # (Manual) PT INR ABG pH 7.319 L ABG pO2 65.3 L ABG HCO3 31.3 H ABG O2 Saturation 92.2 L ABG Base Excess 3.8 H ABG Hemoglobin 12.0 L Oxyhemoglobin 90.3 L Sodium Potassium Chloride 107.9 H Carbon Dioxide BUN 8 L Creatinine 0.4 L Glucose POC Glucose 108 H Calcium 7.6 L Phosphorus 4.60 H D AST ALT Ammonia Albumin 02/25/22 02/25/22 02/25/22 04:12 04:12 05:05 WBC RBC 3.07 L Hgb 10.2 L Hct 31.5 L MCV 103 H MCH 33 H MCHC RDW 15.6 H Lymph % (Auto) Hill % (Auto) Lymph # (Auto) Hill # (Auto) Seg Neutrophils % Seg Neuts % (Manual) Lymphocytes % (Manual) Seg Neutrophils # Seg Neutrophils # Man Lymphocytes # (Manual) PT INR ABG pH ABG pO2 ABG HCO3 32.5 H ABG O2 Saturation ABG Base Excess 5.6 H ABG Hemoglobin 10.8 L Oxyhemoglobin 94.8 L Sodium Potassium 3.5 L Chloride 107.7 H Carbon Dioxide BUN Creatinine 0.5 L Glucose POC Glucose Calcium 7.0 L Phosphorus AST ALT Ammonia Albumin 02/25/22 02/25/22 02/26/22 12:05 18:33 00:07 WBC RBC Hgb Hct MCV MCH MCHC RDW Lymph % (Auto) Hill % (Auto) Lymph # (Auto) Hill # (Auto) Seg Neutrophils % Seg Neuts % (Manual) Lymphocytes % (Manual) Seg Neutrophils # Seg Neutrophils # Man Lymphocytes # (Manual) PT INR ABG pH ABG pO2 ABG HCO3 ABG O2 Saturation ABG Base Excess ABG Hemoglobin Oxyhemoglobin Sodium Potassium Chloride Carbon Dioxide BUN Creatinine Glucose POC Glucose 127 H 125 H 114 H Calcium Phosphorus AST ALT Ammonia Albumin 02/26/22 02/26/22 02/26/22 03:30 04:42 11:34 WBC RBC Hgb Hct MCV MCH MCHC RDW Lymph % (Auto) Hill % (Auto) Lymph # (Auto) Hill # (Auto) Seg Neutrophils % Seg Neuts % (Manual) Lymphocytes % (Manual) Seg Neutrophils # Seg Neutrophils # Man Lymphocytes # (Manual) PT INR ABG pH ABG pO2 143.2 H ABG HCO3 33.2 H ABG O2 Saturation ABG Base Excess 6.5 H ABG Hemoglobin 9.4 L Oxyhemoglobin Sodium Potassium Chloride Carbon Dioxide 32 H BUN Creatinine 0.7 L Glucose POC Glucose 114 H Calcium 8.0 L Phosphorus AST ALT Ammonia Albumin 02/26/22 02/26/22 02/27/22 18:17 23:37 04:19 WBC 13.7 H RBC 2.78 L Hgb 9.3 L Hct 28.5 L MCV 103 H MCH 33 H MCHC RDW 16.3 H Lymph % (Auto) Hill % (Auto) Lymph # (Auto) Hill # (Auto) Seg Neutrophils % Seg Neuts % (Manual) Lymphocytes % (Manual) Seg Neutrophils # Seg Neutrophils # Man Lymphocytes # (Manual) PT INR ABG pH ABG pO2 ABG HCO3 ABG O2 Saturation ABG Base Excess ABG Hemoglobin Oxyhemoglobin Sodium Potassium Chloride Carbon Dioxide BUN Creatinine Glucose POC Glucose 111 H 117 H Calcium Phosphorus AST ALT Ammonia Albumin 02/27/22 02/27/22 02/27/22 04:19 04:35 05:27 WBC RBC Hgb Hct MCV MCH MCHC RDW Lymph % (Auto) Hill % (Auto) Lymph # (Auto) Hill # (Auto) Seg Neutrophils % Seg Neuts % (Manual) Lymphocytes % (Manual) Seg Neutrophils # Seg Neutrophils # Man Lymphocytes # (Manual) PT INR ABG pH ABG pO2 96.3 H ABG HCO3 34.9 H ABG O2 Saturation ABG Base Excess 8.1 H ABG Hemoglobin Oxyhemoglobin Sodium Potassium Chloride Carbon Dioxide 31 H BUN Creatinine 0.6 L Glucose 107 H POC Glucose 133 H Calcium 7.8 L Phosphorus AST ALT Ammonia Albumin 02/27/22 02/27/22 02/28/22 11:15 23:35 03:38 WBC 13.3 H RBC 3.05 L Hgb 10.2 L Hct 30.7 L MCV 101 H MCH 33 H MCHC RDW 16.1 H Lymph % (Auto) Hill % (Auto) Lymph # (Auto) Hill # (Auto) Seg Neutrophils % Seg Neuts % (Manual) Lymphocytes % (Manual) Seg Neutrophils # Seg Neutrophils # Man Lymphocytes # (Manual) PT INR ABG pH ABG pO2 ABG HCO3 ABG O2 Saturation ABG Base Excess ABG Hemoglobin Oxyhemoglobin Sodium Potassium Chloride Carbon Dioxide BUN Creatinine Glucose POC Glucose 129 H 122 H Calcium Phosphorus AST ALT Ammonia Albumin 02/28/22 02/28/22 02/28/22 04:50 05:30 09:30 WBC RBC Hgb Hct MCV MCH MCHC RDW Lymph % (Auto) Hill % (Auto) Lymph # (Auto) Hill # (Auto) Seg Neutrophils % Seg Neuts % (Manual) Lymphocytes % (Manual) Seg Neutrophils # Seg Neutrophils # Man Lymphocytes # (Manual) PT INR ABG pH 7.451 H 7.488 H ABG pO2 77.0 L ABG HCO3 37.1 H 34.6 H ABG O2 Saturation ABG Base Excess 11.5 H 10.1 H ABG Hemoglobin 10.1 L 10.0 L Oxyhemoglobin Sodium Potassium Chloride Carbon Dioxide BUN Creatinine Glucose POC Glucose 121 H Calcium Phosphorus AST ALT Ammonia Albumin 02/28/22 02/28/22 03/01/22 11:36 23:07 04:27 WBC 12.5 H RBC 2.85 L Hgb 9.5 L Hct 28.6 L MCV 101 H MCH 33 H MCHC RDW 15.7 H Lymph % (Auto) Hill % (Auto) Lymph # (Auto) Hill # (Auto) Seg Neutrophils % Seg Neuts % (Manual) Lymphocytes % (Manual) Seg Neutrophils # Seg Neutrophils # Man Lymphocytes # (Manual) PT INR ABG pH ABG pO2 ABG HCO3 ABG O2 Saturation ABG Base Excess ABG Hemoglobin Oxyhemoglobin Sodium Potassium Chloride Carbon Dioxide BUN Creatinine Glucose POC Glucose 112 H 107 H Calcium Phosphorus AST ALT Ammonia Albumin 03/01/22 03/01/22 03/01/22 04:27 05:05 11:29 WBC RBC Hgb Hct MCV MCH MCHC RDW Lymph % (Auto) Hill % (Auto) Lymph # (Auto) Hill # (Auto) Seg Neutrophils % Seg Neuts % (Manual) Lymphocytes % (Manual) Seg Neutrophils # Seg Neutrophils # Man Lymphocytes # (Manual) PT INR ABG pH ABG pO2 ABG HCO3 ABG O2 Saturation ABG Base Excess ABG Hemoglobin Oxyhemoglobin Sodium 147 H D Potassium Chloride Carbon Dioxide 34 H BUN Creatinine 0.6 L Glucose 128 H POC Glucose 119 H 121 H Calcium 7.9 L Phosphorus AST ALT Ammonia Albumin 03/01/22 03/01/22 03/02/22 16:15 23:57 05:18 WBC RBC Hgb Hct MCV MCH MCHC RDW Lymph % (Auto) Hill % (Auto) Lymph # (Auto) Hill # (Auto) Seg Neutrophils % Seg Neuts % (Manual) Lymphocytes % (Manual) Seg Neutrophils # Seg Neutrophils # Man Lymphocytes # (Manual) PT INR ABG pH ABG pO2 110.5 H ABG HCO3 33.0 H ABG O2 Saturation ABG Base Excess 7.4 H ABG Hemoglobin 8.6 L Oxyhemoglobin Sodium Potassium Chloride Carbon Dioxide BUN Creatinine Glucose POC Glucose 134 H 140 H Calcium Phosphorus AST ALT Ammonia Albumin 03/02/22 03/02/22 03/02/22 05:53 09:04 09:04 WBC 15.0 H RBC 3.00 L Hgb 9.7 L Hct 30.7 L MCV 102 H MCH MCHC RDW 16.6 H Lymph % (Auto) Hill % (Auto) Lymph # (Auto) Hill # (Auto) Seg Neutrophils % Seg Neuts % (Manual) Lymphocytes % (Manual) Seg Neutrophils # Seg Neutrophils # Man Lymphocytes # (Manual) PT INR ABG pH ABG pO2 ABG HCO3 ABG O2 Saturation ABG Base Excess ABG Hemoglobin Oxyhemoglobin Sodium Potassium Chloride Carbon Dioxide 31 H BUN Creatinine 0.6 L Glucose 157 H POC Glucose 158 H Calcium 7.9 L Phosphorus AST ALT Ammonia Albumin 03/02/22 03/02/22 03/02/22 11:36 16:25 23:17 WBC RBC Hgb Hct MCV MCH MCHC RDW Lymph % (Auto) Hill % (Auto) Lymph # (Auto) Hill # (Auto) Seg Neutrophils % Seg Neuts % (Manual) Lymphocytes % (Manual) Seg Neutrophils # Seg Neutrophils # Man Lymphocytes # (Manual) PT INR ABG pH ABG pO2 ABG HCO3 ABG O2 Saturation ABG Base Excess ABG Hemoglobin Oxyhemoglobin Sodium Potassium Chloride Carbon Dioxide BUN Creatinine Glucose POC Glucose 160 H 132 H 157 H Calcium Phosphorus AST ALT Ammonia Albumin 03/03/22 03/03/22 03/03/22 03:54 03:54 05:27 WBC 19.5 H RBC 2.79 L Hgb 9.0 L Hct 28.6 L MCV 102 H MCH MCHC RDW 16.2 H Lymph % (Auto) Hill % (Auto) Lymph # (Auto) Hill # (Auto) Seg Neutrophils % Seg Neuts % (Manual) 95.0 H Lymphocytes % (Manual) 3.0 L Seg Neutrophils # Seg Neutrophils # Man 18.5 H Lymphocytes # (Manual) 0.6 L PT INR ABG pH ABG pO2 ABG HCO3 ABG O2 Saturation ABG Base Excess ABG Hemoglobin Oxyhemoglobin Sodium Potassium Chloride Carbon Dioxide BUN Creatinine 0.6 L Glucose 130 H POC Glucose 149 H Calcium 8.1 L Phosphorus AST ALT Ammonia Albumin 03/03/22 03/03/22 03/04/22 11:13 17:30 00:02 WBC RBC Hgb Hct MCV MCH MCHC RDW Lymph % (Auto) Hill % (Auto) Lymph # (Auto) Hill # (Auto) Seg Neutrophils % Seg Neuts % (Manual) Lymphocytes % (Manual) Seg Neutrophils # Seg Neutrophils # Man Lymphocytes # (Manual) PT INR ABG pH ABG pO2 ABG HCO3 ABG O2 Saturation ABG Base Excess ABG Hemoglobin Oxyhemoglobin Sodium Potassium Chloride Carbon Dioxide BUN Creatinine Glucose POC Glucose 139 H 138 H 157 H Calcium Phosphorus AST ALT Ammonia Albumin 03/04/22 03/04/22 03/04/22 05:32 05:32 05:48 WBC 16.1 H RBC 2.81 L Hgb 9.3 L Hct 28.8 L MCV 102 H MCH 33 H MCHC RDW 16.7 H Lymph % (Auto) Hill % (Auto) Lymph # (Auto) Hill # (Auto) Seg Neutrophils % Seg Neuts % (Manual) Lymphocytes % (Manual) Seg Neutrophils # Seg Neutrophils # Man Lymphocytes # (Manual) PT INR ABG pH ABG pO2 ABG HCO3 ABG O2 Saturation ABG Base Excess ABG Hemoglobin Oxyhemoglobin Sodium Potassium Chloride Carbon Dioxide BUN Creatinine 0.7 L Glucose 135 H POC Glucose 145 H Calcium 8.3 L Phosphorus AST ALT Ammonia Albumin 03/04/22 03/04/22 03/05/22 11:34 16:29 00:28 WBC RBC Hgb Hct MCV MCH MCHC RDW Lymph % (Auto) Hill % (Auto) Lymph # (Auto) Hill # (Auto) Seg Neutrophils % Seg Neuts % (Manual) Lymphocytes % (Manual) Seg Neutrophils # Seg Neutrophils # Man Lymphocytes # (Manual) PT INR ABG pH ABG pO2 ABG HCO3 ABG O2 Saturation ABG Base Excess ABG Hemoglobin Oxyhemoglobin Sodium Potassium Chloride Carbon Dioxide BUN Creatinine Glucose POC Glucose 148 H 140 H 116 H Calcium Phosphorus AST ALT Ammonia Albumin 03/05/22 03/05/22 03/05/22 06:29 11:30 17:38 WBC RBC Hgb Hct MCV MCH MCHC RDW Lymph % (Auto) Hill % (Auto) Lymph # (Auto) Hill # (Auto) Seg Neutrophils % Seg Neuts % (Manual) Lymphocytes % (Manual) Seg Neutrophils # Seg Neutrophils # Man Lymphocytes # (Manual) PT INR ABG pH ABG pO2 ABG HCO3 ABG O2 Saturation ABG Base Excess ABG Hemoglobin Oxyhemoglobin Sodium Potassium Chloride Carbon Dioxide BUN Creatinine Glucose POC Glucose 114 H 114 H 117 H Calcium Phosphorus AST ALT Ammonia Albumin 03/06/22 03/06/22 03/06/22 04:17 04:17 06:06 WBC 13.4 H RBC 2.85 L Hgb 9.4 L Hct 29.0 L MCV 102 H MCH 33 H MCHC RDW 16.4 H Lymph % (Auto) Hill % (Auto) Lymph # (Auto) Hill # (Auto) Seg Neutrophils % Seg Neuts % (Manual) Lymphocytes % (Manual) Seg Neutrophils # Seg Neutrophils # Man Lymphocytes # (Manual) PT INR ABG pH ABG pO2 ABG HCO3 ABG O2 Saturation ABG Base Excess ABG Hemoglobin Oxyhemoglobin Sodium Potassium 3.5 L Chloride Carbon Dioxide 31 H BUN Creatinine 0.6 L Glucose 101 H POC Glucose 106 H Calcium 7.7 L Phosphorus 2.00 L AST ALT Ammonia Albumin 03/06/22 03/06/22 03/07/22 18:04 23:50 05:14 WBC RBC Hgb Hct MCV MCH MCHC RDW Lymph % (Auto) Hill % (Auto) Lymph # (Auto) Hill # (Auto) Seg Neutrophils % Seg Neuts % (Manual) Lymphocytes % (Manual) Seg Neutrophils # Seg Neutrophils # Man Lymphocytes # (Manual) PT INR ABG pH ABG pO2 ABG HCO3 ABG O2 Saturation ABG Base Excess ABG Hemoglobin Oxyhemoglobin Sodium Potassium Chloride Carbon Dioxide BUN Creatinine Glucose POC Glucose 108 H 115 H 116 H Calcium Phosphorus AST ALT Ammonia Albumin 03/07/22 03/07/22 03/08/22 11:42 18:13 04:34 WBC RBC 2.86 L Hgb 9.2 L Hct 29.3 L MCV 103 H MCH MCHC 31 L RDW 16.9 H Lymph % (Auto) Hill % (Auto) Lymph # (Auto) Hill # (Auto) Seg Neutrophils % Seg Neuts % (Manual) Lymphocytes % (Manual) Seg Neutrophils # Seg Neutrophils # Man Lymphocytes # (Manual) PT INR ABG pH ABG pO2 ABG HCO3 ABG O2 Saturation ABG Base Excess ABG Hemoglobin Oxyhemoglobin Sodium Potassium Chloride Carbon Dioxide BUN Creatinine Glucose POC Glucose 123 H 109 H Calcium Phosphorus AST ALT Ammonia Albumin 03/08/22 03/08/22 03/08/22 04:34 11:29 16:34 WBC RBC Hgb Hct MCV MCH MCHC RDW Lymph % (Auto) Hill % (Auto) Lymph # (Auto) Hill # (Auto) Seg Neutrophils % Seg Neuts % (Manual) Lymphocytes % (Manual) Seg Neutrophils # Seg Neutrophils # Man Lymphocytes # (Manual) PT INR ABG pH ABG pO2 ABG HCO3 ABG O2 Saturation ABG Base Excess ABG Hemoglobin Oxyhemoglobin Sodium Potassium Chloride Carbon Dioxide 33 H BUN Creatinine 0.5 L Glucose 109 H POC Glucose 117 H 109 H Calcium 7.6 L Phosphorus AST ALT Ammonia Albumin 03/08/22 03/09/22 03/10/22 23:56 11:15 03:57 WBC RBC 2.99 L Hgb 9.9 L Hct 30.3 L MCV 102 H MCH 33 H MCHC RDW 16.8 H Lymph % (Auto) 13.3 L Hill % (Auto) 12.5 H Lymph # (Auto) Hill # (Auto) 1.3 H Seg Neutrophils % 72.4 H Seg Neuts % (Manual) Lymphocytes % (Manual) Seg Neutrophils # Seg Neutrophils # Man Lymphocytes # (Manual) PT INR ABG pH ABG pO2 ABG HCO3 ABG O2 Saturation ABG Base Excess ABG Hemoglobin Oxyhemoglobin Sodium Potassium Chloride Carbon Dioxide BUN Creatinine Glucose POC Glucose 106 H 110 H Calcium Phosphorus AST ALT Ammonia Albumin 03/10/22 03/10/22 03/10/22 03:57 04:50 16:04 WBC RBC Hgb Hct MCV MCH MCHC RDW Lymph % (Auto) Hill % (Auto) Lymph # (Auto) Hill # (Auto) Seg Neutrophils % Seg Neuts % (Manual) Lymphocytes % (Manual) Seg Neutrophils # Seg Neutrophils # Man Lymphocytes # (Manual) PT INR ABG pH 7.465 H ABG pO2 ABG HCO3 31.9 H ABG O2 Saturation ABG Base Excess 7.3 H ABG Hemoglobin 11.0 L Oxyhemoglobin Sodium Potassium 3.4 L Chloride Carbon Dioxide BUN Creatinine 0.6 L Glucose POC Glucose 115 H Calcium 8.1 L Phosphorus AST ALT Ammonia Albumin 1.9 L 03/11/22 03/11/22 03/11/22 04:02 04:02 04:02 WBC 12.0 H RBC 2.81 L Hgb 9.2 L Hct 29.1 L MCV 103 H MCH 33 H MCHC RDW 17.5 H Lymph % (Auto) Hill % (Auto) Lymph # (Auto) Hill # (Auto) Seg Neutrophils % Seg Neuts % (Manual) Lymphocytes % (Manual) Seg Neutrophils # Seg Neutrophils # Man Lymphocytes # (Manual) PT 16.2 H INR 1.16 H ABG pH ABG pO2 ABG HCO3 ABG O2 Saturation ABG Base Excess ABG Hemoglobin Oxyhemoglobin Sodium Potassium Chloride Carbon Dioxide BUN Creatinine 0.5 L Glucose 104 H POC Glucose Calcium 7.9 L Phosphorus AST ALT Ammonia Albumin 03/11/22 03/11/22 03/11/22 05:10 11:07 16:32 WBC RBC Hgb Hct MCV MCH MCHC RDW Lymph % (Auto) Hill % (Auto) Lymph # (Auto) Hill # (Auto) Seg Neutrophils % Seg Neuts % (Manual) Lymphocytes % (Manual) Seg Neutrophils # Seg Neutrophils # Man Lymphocytes # (Manual) PT INR ABG pH 7.476 H ABG pO2 ABG HCO3 29.7 H ABG O2 Saturation ABG Base Excess 5.7 H ABG Hemoglobin 9.1 L Oxyhemoglobin Sodium Potassium Chloride Carbon Dioxide BUN Creatinine Glucose POC Glucose 108 H 121 H Calcium Phosphorus AST ALT Ammonia Albumin 03/12/22 03/13/22 05:51 06:08 WBC RBC Hgb Hct MCV MCH MCHC RDW Lymph % (Auto) Hill % (Auto) Lymph # (Auto) [place] # (Auto) Seg Neutrophils % Seg Neuts % (Manual) Lymphocytes % (Manual) Seg Neutrophils # Seg Neutrophils # Man Lymphocytes # (Manual) PT INR ABG pH ABG pO2 ABG HCO3 ABG O2 Saturation ABG Base Excess ABG Hemoglobin Oxyhemoglobin Sodium Potassium Chloride Carbon Dioxide BUN Creatinine Glucose POC Glucose 116 H 111 H Calcium Phosphorus AST ALT Ammonia Albumin
[2022-03-13] MEDS: MIDODRINE 2.5 MG TAB PO SCH ×2 (12:15→16:59)
[2022-03-13 12:22] LABS: Hematocrit 27.5 % (35.5-45.6); Mean Corpuscular HGB Conc 33 % (32-34); Mean Corpuscular Volume 101 fl (84-94); Platelet Count 356 K/mm3 (140-440); Red Blood Count 2.73 M/mm3 (3.65-5.03); Red Cell Distribution Width 17.2 % (13.2-15.2)
--- NOTE | 2022-03-13 14:14 | Progress Note ---
<CODYCARSON ZiaRadha - Last Filed: 03/13/22 14:12> Assessment and Plan Assessment and plan: This is a 51-year-old male with HTN, seizure disorder, Down syndrome, HLD, partial blindness admitted with aspiration pneumonia, probable bronchogenic carcinoma, acute hypoxic respiratory failure and acute encephalopathy Neuro: Acute encephalopathy, h/o seizure disorder, Down syndrome, partial blindness -fent IVP -Reorientation as needed -Maintain sleep-wake cycle -aspiration/seizure precautions -As needed analgesia -CT head showed no acute abnormality -Continue Keppra Cardiac: h/o HTN, HLD -Cardiology consulted, appreciate recommendations -Blood pressure monitoring per protocol -Midodrine TID Respiratory: Acute hypoxic respiratory failure, ruled out bronchogenic carcinoma -CCM consulted, appreciate recommendations -Intubated on 02/24 with a 8.0 at 23 at the lips but extubated 02/28 -reintubated 02/28 with 8.0 OETT -Vent settings: AC rate 14, TV 360, PEEP 6, FO2 30% -See RT notes for titration -VAP bundle -SPO2 monitoring -02/18 CTA chest showed no evidence of pulmonary embolism, suspected bronchogenic carcinoma with associated obstruction of the right lower lobe proximal bronchus segment, 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 adenopathy and suspected to left lower lobe metastatic nodule -02/26 Bronch->mucous, no lesion noted -02/27 CT chest showed right mainstem bronchus patent with small amount of interval bronchial fluid which may be mucus (this may account for the appearance of the prior CTA chest fluid-filled airway rather than entering bronchial lesion), previously seen complete left lower lobe since related to bronchial occlusion has significantly improved, there is persistent compressive atelectasis in the right lower lung secondary to the pleural effusion, bilateral pleural effusions, right lung pneumonia -CT neck showed no acute changes -s/p steroids GI: Moderate protein calorie malnutrition -24 hours + 270 mL -PPI -NTR consulted for tube feedings -BR: Senokot S : NAD -Monitor intake and output -Renally dose medications -Avoid nephrotoxic medications -Trend BMP ID: Aspiration PNA (resolved) -S/p Rocephin for 5 days (02/19-02/24) -Monitor WBC and temperature curve Endo: NAD -Avoid hypoglycemia -Accu-Cheks every 6 -Avoid hypoglycemia Heme: NAD -Trend CBC -Transfuse hemoglobin less than 7 -SCDs to BLE while in bed The high probability of a clinically significant, sudden or life threatening deterioration of the [resp] system(s) required my full and direct attention, intervention and personal management. The aggregate critical care time was [60] minutes. This time is in addition to time spent performing reported procedures but includes the following: [x] Data Review and interpretation [x] Patient assessment and monitoring of vital signs [x] Documentation [x] Medication orders and management Disposition Plan: icu Total Time Spent with Patient (Minutes): 60 History Interval history: This is a 51-year-old male with HTN, seizure disorder, Down syndrome, HLD, and partial blindness [facility] presented to emergency department on 02/19 for evaluation of change in mental status. Of note patient was recently discharged a few weeks ago for a seizure disorder and UTI. Upon arrival to the emergency department patient was noted to be hypoxic with SPO2 in the 80s on a nonrebreather with difficulty breathing. Work-up in the emergency department revealed CXR which showed elevation of the right hemidiaphragm, right lower lung atelectasis and effusion with mild increased pulmonary vascularity but no pneumothorax and CT of the head did not show any acute ab normality. 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 Patient was admitted to the hospitalist service to the floor. Hospital course to date: 02/19/2022. Consult pulmonary for further evaluation and possible bronchoscopy. I suspect patient has component of aspiration pneumonia as well. We will obtain a speech therapy evaluation for swallowing and start empiric antibiotics. Continue O2 supplementation to maintain sats greater than 92%. 02/20/2022. Pulmonary feels that the abnormality seen on CT scan is highly unlikely for a mass given negative chest x-ray 1 month ago and no risk factors. Etiology is likely secondary to aspiration from possibly a foreign body most li carey food with atelectasis of the right lower lobe. Bronchoscopy is needed in the case to evaluate to see if lung mass is there vs foreign body, but at this time not able to do because no identifiable person that is able to give consent. Continue aspiration precautions and continue speech therapy evaluation for swallowing. Keep n.p.o. for now 02/21/2022. Patient remains NPO. Consider DHT placement. Follow-up with speech therapy evaluation. Pulmonology to consider bronchoscopy if able to obtain consent. Continue IV antibiotics for aspiration pneumonia 02/22/2022. Patient remains NPO. Consider DHT placement. Follow-up with speech therapy evaluation. Pulmonology to consider bronchoscopy if able to obtain consent. Continue IV antibiotics for aspiration pneumonia 02/23/2022. DHT placed yesterday. TF initiated for nutritional support. Patient currently with strict NPO. Aspiration precautions. Pulmonology to consider bronchoscopy if able to obtain consent. Continue IV antibiotics for aspiration pneumonia 02/24: Patient was transferred to the ICU for further monitoring. This morning patient remained on high flow nasal cannula on 40 L/100% and despite repeated nasotracheal suctioning patient SPO2 remained in the 80s. Patient was placed on nonrebreather and SPO2 increased to upper 80s. Patient was subsequently intubated by anesthesia. Started on sedation. 02/25: Patient remains sedated on fentanyl, potassium and magnesium repleted. IV fluids and amlodipine discontinued. Possible bronchoscopy tomorrow. 02/26: Patient had a bronchoscopy today which showed mucus and no endobronchial lesions or masses. FiO2 was increased to 100 during and postprocedure weaning a s tolerated. Repeat CXR is much improved after bronc. Given 1 L LR bolus due to hypotension. No acute events reported overnight. 02/27: Decreased PEEP, will repeat CT of chest. no acute changes overnight. 02/28: Patient was extubated today however had to be be intubated shortly after. Patient ETT looked mispositioned on x-ray and Dr. Alonzo did do a bedside bronc. Patient was briefly hypotensive and on Levophed postintubation however Levophed was quickly titrated off and patient did not require central line. No acute events reported overnight. Will obtain CT neck d/t difficulty intubating. Ethic committee consulted. 03/01: Overnight patient was hypotensive and started on IVF. Patient started on steroids as no air leak noted and hypotension and given 2 L LR 03/02: Overnight patient received bolus per RN report, no orders seen. Continue supportive care. 03/04: MAIDA overnight. Remains stable on the vent. Awaiting on desicion from [facility] for possible trach and PEG. Continue current supportive measures 03/05: MAIDA overnight. Awaiting on desicion from [facility] for possible trach and PEG. Midodrine held yesterday, HR improved. Continue current supportive measures. Daily PSV trial as tolerated per CCM 03/06: Remains stable on the vent. Continue current supportive measures, daily PSV trial per CCM. Awaiting on desicion for possible trach and PEG. 03/07: MAIDA overnight, remains stable. Continue daily PSV trial as tolerated. Awaiting on desicion for possible trach and PEG. 03/08: Patient failed PSV trial this am due to tachycardia and increase RR. Continue supportive measures and daily PSV trial as tolerated. Possible discussion with ethics and CCM on Thursday in regards to medical necessity, may need to consider two physician consent if no one is able to claim responsibility for this patient. 03/09: MAIDA overnight. Continue current supportive measures and daily PSV trail as tolerated. Awaiting on decision for possible trach and PEG, discussion with Ethics possibly tomorrow per CCM. 03/10: no acute events overnight, PSV today. replete potassium. 03/11: No acute events reported overnight, patient failed PSV yesterday and will repeat today. Hospital to start guardianship process. 03/12: No acute events overnight. PSV today 03/13: Patient given 500ml normal saline and started on midodrine for hypotension. No acute events reported overnight. Failed pressure support again this morning. Hospitalist Physical - Constitutional Vitals: Temp Pulse Resp BP Pulse Ox 98.4 F 64 14 99/48 99 03/13/22 12:00 03/13/22 13:00 03/13/22 13:00 03/13/22 13:00 03/13/22 13:00 General appearance: Present: no acute distress, well-nourished - EENT Eyes: Present: PERRL ENT: poor dentition - Neck Neck: Present: normal ROM - Respiratory Respiratory effort: normal Respiratory: bilateral: diminished, rhonchi - Cardiovascular Rhythm: regular Heart Sounds: Present: S1 & S2. Absent: systolic murmur, diastolic murmur - Extremities Extremities: no ischemia, pulses intact, pulses symmetrical, No edema, normal temperature, normal color Peripheral Pulses: within normal limits - Abdominal General gastrointestinal: soft, non-tender, non-distended, normal bowel sounds - Integumentary Integumentary: Present: warm, dry - Psychiatric Psychiatric: cooperative - Neurologic Neurologic: other (Nonverbal at baseline, intermittently follows commands.) - Allied Health Allied health notes reviewed: nursing, RT, social work HEART Score - HEART Score Troponin: Troponin T < 0.010 ng/mL (0.00-0.029) 02/18/22 21:02 Results - Labs CBC & Chem 7: 03/13/22 12:02 03/11/22 04:02 Labs: Laboratory Last Values WBC 9.3 K/mm3 (4.5-11.0) 03/13/22 12:02 RBC 2.73 M/mm3 (3.65-5.03) L 03/13/22 12:02 Hgb 9.0 gm/dl (11.8-15.2) L 03/13/22 12:02 Hct 27.5 % (35.5-45.6) L 03/13/22 12:02 MCV 101 fl (84-94) H 03/13/22 12:02 MCH 33 pg (28-32) H 03/13/22 12:02 MCHC 33 % (32-34) 03/13/22 12:02 RDW 17.2 % (13.2-15.2) H 03/13/22 12:02 Plt Count 356 K/mm3 (140-440) 03/13/22 12:02 Lymph % (Auto) 13.3 % (13.4-35.0) L 03/10/22 03:57 [place] % (Auto) 12.5 % (0.0-7.3) H 03/10/22 03:57 Eos % (Auto) 1.4 % (0.0-4.3) 03/10/22 03:57 Baso % (Auto) 0.4 % (0.0-1.8) 03/10/22 03:57 Lymph # (Auto) 1.3 K/mm3 (1.2-5.4) 03/10/22 03:57 [place] # (Auto) 1.3 K/mm3 (0.0-0.8) H 03/10/22 03:57 Eos # (Auto) 0.1 K/mm3 (0.0-0.4) 03/10/22 03:57 Baso # (Auto) 0.0 K/mm3 (0.0-0.1) 03/10/22 03:57 Add Manual Diff Complete 03/03/22 03:54 Total Counted 100 03/03/22 03:54 Seg Neutrophils % 72.4 % (40.0-70.0) H 03/10/22 03:57 Seg Neuts % (Manual) 95.0 % (40.0-70.0) H 03/03/22 03:54 Band Neutrophils % 0 % 03/03/22 03:54 Lymphocytes % (Manual) 3.0 % (13.4-35.0) L 03/03/22 03:54 Reactive Lymphs % (Man) 0 % 03/03/22 03:54 Monocytes % (Manual) 2.0 % (0.0-7.3) 03/03/22 03:54 Eosinophils % (Manual) 0 % (0.0-4.3) 03/03/22 03:54 Basophils % (Manual) 0 % (0.0-1.8) 03/03/22 03:54 Metamyelocytes % 0 % 03/03/22 03:54 Myelocytes % 0 % 03/03/22 03:54 Promyelocytes % 0 % 03/03/22 03:54 Blast Cells % 0 % 03/03/22 03:54 Nucleated RBC % Not Reportable 03/03/22 03:54 Seg Neutrophils # 7.4 K/mm3 (1.8-7.7) 03/10/22 03:57 Seg Neutrophils # Man 18.5 K/mm3 (1.8-7.7) H 03/03/22 03:54 Band Neutrophils # 0.0 K/mm3 03/03/22 03:54 Lymphocytes # (Manual) 0.6 K/mm3 (1.2-5.4) L 03/03/22 03:54 Abs React Lymphs (Man) 0.0 K/mm3 03/03/22 03:54 Monocytes # (Manual) 0.4 K/mm3 (0.0-0.8) 03/03/22 03:54 Eosinophils # (Manual) 0.0 K/mm3 (0.0-0.4) 03/03/22 03:54 Basophils # (Manual) 0.0 K/mm3 (0.0-0.1) 03/03/22 03:54 Metamyelocytes # 0.0 K/mm3 03/03/22 03:54 Myelocytes # 0.0 K/mm3 03/03/22 03:54 Promyelocytes # 0.0 K/mm3 03/03/22 03:54 Blast Cells # 0.0 K/mm3 03/03/22 03:54 WBC Morphology Not Reportable 03/03/22 03:54 Hypersegmented Neuts Not Reportable 03/03/22 03:54 Hyposegmented Neuts Not Reportable 03/03/22 03:54 Hypogranular Neuts Not Reportable 03/03/22 03:54 Smudge Cells Not Reportable 03/03/22 03:54 Toxic Granulation Not Reportable 03/03/22 03:54 Toxic Vacuolation Not Reportable 03/03/22 03:54 Dohle Bodies Not Reportable 03/03/22 03:54 Pelger-Huet Anomaly Not Reportable 03/03/22 03:54 Lakshmi Rods Not Reportable 03/03/22 03:54 Platelet Estimate Consistent w auto 03/03/22 03:54 Clumped Platelets Not Reportable 03/03/22 03:54 Plt Clumps, EDTA Not Reportable 03/03/22 03:54 Large Platelets Not Reportable 03/03/22 03:54 Giant Platelets Not Reportable 03/03/22 03:54 Platelet Satelliting Not Reportable 03/03/22 03:54 Plt Morphology Comment Not Reportable 03/03/22 03:54 RBC Morphology Not Reportable 03/03/22 03:54 Dimorphic RBCs Not Reportable 03/03/22 03:54 Polychromasia Not Reportable 03/03/22 03:54 Hypochromasia Not Reportable 03/03/22 03:54 Poikilocytosis Not Reportable 03/03/22 03:54 Anisocytosis 1+ 03/03/22 03:54 Microcytosis Not Reportable 03/03/22 03:54 Macrocytosis Not Reportable 03/03/22 03:54 Spherocytes Not Reportable 03/03/22 03:54 Pappenheimer Bodies Not Reportable 03/03/22 03:54 Sickle Cells Not Reportable 03/03/22 03:54 Target Cells Not Reportable 03/03/22 03:54 Tear Drop Cells Not Reportable 03/03/22 03:54 Ovalocytes Not Reportable 03/03/22 03:54 Helmet Cells Not Reportable 03/03/22 03:54 Orellana-Dailey Bodies Not Reportable 03/03/22 03:54 Oto Rings Not Reportable 03/03/22 03:54 Shelby Cells Not Reportable 03/03/22 03:54 Bite Cells Not Reportable 03/03/22 03:54 Crenated Cell Not Reportable 03/03/22 03:54 Elliptocytes Not Reportable 03/03/22 03:54 Acanthocytes (Spur) Not Reportable 03/03/22 03:54 Rouleaux Not Reportable 03/03/22 03:54 Hemoglobin C Crystals Not Reportable 03/03/22 03:54 Schistocytes Not Reportable 03/03/22 03:54 Malaria parasites Not Reportable 03/03/22 03:54 Cash Bodies Not Reportable 03/03/22 03:54 Hem Pathologist Commnt No 03/03/22 03:54 PT 16.2 Sec. (12.2-14.9) H 03/11/22 04:02 INR 1.16 (0.87-1.13) H 03/11/22 04:02 ABG pH 7.476 pH Units (7.350-7.450) H 03/11/22 05:10 ABG pCO2 41.2 mm Hg 03/11/22 05:10 ABG pO2 84.0 mm Hg (80.0-90.0) 03/11/22 05:10 ABG HCO3 29.7 mmol/L (20.0-26.0) H 03/11/22 05:10 ABG O2 Saturation 97.1 % (95.0-99.0) 03/11/22 05:10 ABG O2 Content 12.3 (0.0-44) 03/11/22 05:10 ABG Base Excess 5.7 mmol/L (-2.0-3.0) H 03/11/22 05:10 ABG Hemoglobin 9.1 gm/dl (14.0-18.0) L 03/11/22 05:10 ABG Carboxyhemoglobin 1.7 % (0.0-5.0) 03/11/22 05:10 ABG Methemoglobin 0.5 % (0.0-1.5) 03/11/22 05:10 Oxyhemoglobin 95.0 % (95.0-99.0) 03/11/22 05:10 FiO2 30 % 03/11/22 05:10 Sodium 139 mmol/L (137-145) 03/11/22 04:02 Potassium 3.8 mmol/L (3.6-5.0) 03/11/22 04:02 Chloride 103.6 mmol/L (98-107) 03/11/22 04:02 Carbon Dioxide 26 mmol/L (22-30) 03/11/22 04:02 Anion Gap 13 mmol/L 03/11/22 04:02 BUN 16 mg/dL (9-20) 03/11/22 04:02 Creatinine 0.5 mg/dL (0.8-1.3) L 03/11/22 04:02 Estimated GFR > 60 ml/min 03/11/22 04:02 BUN/Creatinine Ratio 32 % 03/11/22 04:02 Glucose 104 mg/dL (75-100) H 03/11/22 04:02 POC Glucose 111 mg/dL (70-105) H 03/13/22 06:08 Lactic Acid 1.20 mmol/L (0.7-2.0) 02/18/22 21:02 Calcium 7.9 mg/dL (8.4-10.2) L 03/11/22 04:02 Phosphorus 3.50 mg/dL (2.5-4.5) 03/11/22 04:02 Magnesium 2.00 mg/dL (1.7-2.3) 03/11/22 04:02 Total Bilirubin 0.30 mg/dL (0.1-1.2) 03/10/22 03:57 AST 17 units/L (5-40) 03/10/22 03:57 ALT 18 units/L (7-56) 03/10/22 03:57 Alkaline Phosphatase 89 units/L (35-129) 03/10/22 03:57 Ammonia 14.0 umol/L (25-60) L 02/18/22 23:22 Troponin T < 0.010 ng/mL (0.00-0.029) 02/18/22 21:02 Total Protein 6.6 g/dL (6.3-8.2) 03/10/22 03:57 Albumin 1.9 g/dL (3.9-5) L 03/10/22 03:57 Albumin/Globulin Ratio 0.4 % 03/10/22 03:57 Urine Color Dark yellow (Yellow) 02/18/22 Unknown Urine Turbidity Clear (Clear) 02/18/22 Unknown Urine pH 7.0 (5.0-7.0) 02/18/22 Unknown Ur Specific [place] 1.015 (1.003-1.030) 02/18/22 Unknown Urine Protein <15 mg/dl mg/dL (Negative) 02/18/22 Unknown Urine Glucose (UA) Negative mg/dL (Negative) 02/18/22 Unknown Urine Ketones Negative mg/dL (Negative) 02/18/22 Unknown Urine Blood Trace (Negative) 02/18/22 Unknown Urine Nitrite Negative (Negative) 02/18/22 Unknown Urine Bilirubin Negative (Negative) 02/18/22 Unknown Urine Urobilinogen < 2.0 mg/dL (<2.0) 02/18/22 Unknown Ur Leukocyte Esterase Negative (Negative) 02/18/22 Unknown Urine WBC (Auto) 2.0 /HPF (0.0-6.0) 02/18/22 Unknown Urine RBC (Auto) 9.0 /HPF (0.0-6.0) 02/18/22 Unknown Urine Mucus Few /HPF 02/18/22 Unknown Urine Opiates Screen Negative 02/18/22 Unknown Urine Methadone Screen Negative 02/18/22 Unknown Ur Barbiturates Screen Negative 02/18/22 Unknown Ur Phencyclidine Scrn Negative 02/18/22 Unknown Ur Amphetamines Screen Negative 02/18/22 Unknown U Benzodiazepines Scrn Negative 02/18/22 Unknown Urine Cocaine Screen Negative 02/18/22 Unknown U Marijuana (THC) Screen Negative 02/18/22 Unknown Drugs of Abuse Note Disclamer 02/18/22 Unknown Plasma/Serum Alcohol < 0.01 % (0-0.07) 02/18/22 21:02 Horowitz/IV: Voiding Method Indwelling Catheter Active Medications - Current Medications Current Medications: Generic Name Dose Route Start Last Admin Trade Name Freq PRN Reason Stop Dose Admin Acetaminophen 650 mg 03/03/22 09:00 Acetaminophen 325 Mg/10.15 Ml Oral Liqd Unit Dose FEEDTUBE Q4H PRN Pain, Mild (1-3); TEMP > 100.4 Albuterol 2.5 mg 03/12/22 20:00 03/13/22 08:43 Albuterol 2.5 Mg/3 Ml Nebu IH 2.5 mg Q6HRT LAZARUS Administration Famotidine 20 mg 02/25/22 10:00 03/13/22 09:55 Famotidine 20 Mg Tab FEEDTUBE 20 mg BID LAZARUS Administration Heparin Sodium (Porcine) 5,000 unit 02/19/22 06:00 03/13/22 06:16 Heparin 5,000 Unit/1 Ml Vial SUB-Q 5,000 unit Q8HR LAZARUS Administration Hydrophilic Ointment 1 applic 02/24/22 15:05 Lip Therapy Vaseline TP Q2HR PRN Dry Lips Levetiracetam 500 mg 02/25/22 22:00 03/13/22 09:55 Levetiracetam 500 Mg/5 Ml Oral Liqd FEEDTUBE 500 mg BID LAZARUS Administration Levothyroxine Sodium 25 mcg 02/26/22 06:00 03/13/22 06:16 Levothyroxine 25 Mcg Tab FEEDTUBE 25 mcg QAM@0600 LAZARUS Administration Magnesium Hydroxide 30 ml 02/19/22 02:02 Magnesium Hydroxide (Mom) Oral Liqd Udc PO Q4H PRN Constipation Midodrine 2.5 mg 03/13/22 12:00 03/13/22 12:15 Midodrine 2.5 Mg Tab PO 2.5 mg TID@0800,1200,1600 LAZARUS Administration Multi-Ingred Cream/Lotion/Oil/Oint 1 applic 02/24/22 15:05 Mineral Oil/Petrolatum, White Ophth Oint 3.5 Gm OU Q4HR PRN Dry Eye(s) Ondansetron HCl 4 mg 02/19/22 02:02 Ondansetron 4 Mg/2 Ml Inj IV Q8H PRN Nausea And Vomiting Pravastatin Sodium 40 mg 02/25/22 22:00 03/12/22 22:50 Pravastatin 40 Mg Tab FEEDTUBE 40 mg QHS LAZARUS Administration Senna/Docusate Sodium 1 tab 02/24/22 22:00 03/13/22 09:55 Sennosides/Docusate Sodium 8.6/50 Mg Tab FEEDTUBE 1 tab BID LAZARUS Administration Sodium Chloride 10 ml 02/19/22 10:00 03/13/22 10:04 Sodium Chloride 0.9% 10 Ml Flush Syringe IV 10 ml BID LAZARUS Administration Sodium Chloride 10 ml 02/19/22 02:02 03/03/22 14:21 Sodium Chloride 0.9% 10 Ml Flush Syringe IV 10 ml PRN PRN Administration LINE FLUSH Nutrition/Malnutrition Assess - Dietary Evaluation Nutrition/Malnutrition Findings: Nutrition Notes Start: 02/19/22 14:29 Freq: Status: Active Protocol: Document 03/07/22 14:34 IVAN (Rec: 03/07/22 14:44 [email or web address] [id number]) Nutrition Notes Initial or Follow up Reassessment Current Diagnosis Hypertension,Respiratory Failure,Hyperlipidemia Other Pertinent Diagnosis Asp pneu, acute encephalopathy , seizure d/o, partial blindness Current Diet TF - Vital AF 1.2 at 50ml/hr Labs/Tests Reviewed Pertinent Medications Reviewed Height 5 ft 3 in Weight 63.2 kg [place] Body Weight (kg) 56.36 BMI 24.7 Weight change and time frame Unable to obtain current wt; bed scale not working - RN aware Weight Status Appropriate Subjective/Other Information Observed TF infusing at goal rate. Pt tolerating TF and remains on vent support. Pt been intubated since 02/24/22 via ETT. Trach/PEG placement pending. Percent of energy/protein needs met: 90% energy 100% pro Burn Absent Trauma Absent #1 Nutrition Diagnosis Inadequate oral intake Diagnosis Progress(for reassessment Continues documentation) Is patient on ventilator? Yes Is Patient Ambulatory and/or Out of Bed No REE-([place]-confined to bed) [phone] Calculation Used for Recommendations [facility] Additional Notes Pro needs 1.2-2g/k-126g/ day Fluid needs 1ml/kcal Nutrition Intervention Nutrition Support: Continue Vital AF 1.2 at 50ml/ hr with 75ml water flush q4h. Kcal 1,440 Protein (gm) 90 Carbohydrates (gm) 133 Fat (gm) 65 Fluid (mL) 973 Fiber (gm) 6 Goal #1 TF tolerance Goal #2 TF to meet at least 75% energy and pro needs Follow-Up By: 03/14/22 Additional Comments F/U: stable TF, trach/PEG placement, vent status, wt <SILVIA BUCHANAN - Last Filed: 03/14/22 14:26> History Interval history: I saw and evaluated the patient. Discussed with the nurse practitioner and agree with their findings and plan as documented in this note. Hospitalist Physical - Constitutional Vitals: Temp Pulse Resp BP Pulse Ox 97.6 F 83 13 112/63 99 03/14/22 12:00 03/14/22 14:00 03/14/22 14:00 03/14/22 14:00 03/14/22 14:00 HEART Score - HEART Score Troponin: Troponin T < 0.010 ng/mL (0.00-0.029) 02/18/22 21:02 Results - Labs CBC & Chem 7: 03/14/22 03:58 03/14/22 03:58 Labs: Laboratory Last Values WBC 8.5 K/mm3 (4.5-11.0) 03/14/22 03:58 RBC 2.97 M/mm3 (3.65-5.03) L 03/14/22 03:58 Hgb 9.7 gm/dl (11.8-15.2) L 03/14/22 03:58 Hct 30.0 % (35.5-45.6) L 03/14/22 03:58 MCV 101 fl (84-94) H 03/14/22 03:58 MCH 33 pg (28-32) H 03/14/22 03:58 MCHC 33 % (32-34) 03/14/22 03:58 RDW 16.7 % (13.2-15.2) H 03/14/22 03:58 Plt Count 384 K/mm3 (140-440) 03/14/22 03:58 Lymph % (Auto) 13.3 % (13.4-35.0) L 03/10/22 03:57 [place] % (Auto) 12.5 % (0.0-7.3) H 03/10/22 03:57 Eos % (Auto) 1.4 % (0.0-4.3) 03/10/22 03:57 Baso % (Auto) 0.4 % (0.0-1.8) 03/10/22 03:57 Lymph # (Auto) 1.3 K/mm3 (1.2-5.4) 03/10/22 03:57 [place] # (Auto) 1.3 K/mm3 (0.0-0.8) H 03/10/22 03:57 Eos # (Auto) 0.1 K/mm3 (0.0-0.4) 03/10/22 03:57 Baso # (Auto) 0.0 K/mm3 (0.0-0.1) 03/10/22 03:57 Add Manual Diff Complete 03/03/22 03:54 Total Counted 100 03/03/22 03:54 Seg Neutrophils % 72.4 % (40.0-70.0) H 03/10/22 03:57 Seg Neuts % (Manual) 95.0 % (40.0-70.0) H 03/03/22 03:54 Band Neutrophils % 0 % 03/03/22 03:54 Lymphocytes % (Manual) 3.0 % (13.4-35.0) L 03/03/22 03:54 Reactive Lymphs % (Man) 0 % 03/03/22 03:54 Monocytes % (Manual) 2.0 % (0.0-7.3) 03/03/22 03:54 Eosinophils % (Manual) 0 % (0.0-4.3) 03/03/22 03:54 Basophils % (Manual) 0 % (0.0-1.8) 03/03/22 03:54 Metamyelocytes % 0 % 03/03/22 03:54 Myelocytes % 0 % 03/03/22 03:54 Promyelocytes % 0 % 03/03/22 03:54 Blast Cells % 0 % 03/03/22 03:54 Nucleated RBC % Not Reportable 03/03/22 03:54 Seg Neutrophils # 7.4 K/mm3 (1.8-7.7) 03/10/22 03:57 Seg Neutrophils # Man 18.5 K/mm3 (1.8-7.7) H 03/03/22 03:54 Band Neutrophils # 0.0 K/mm3 03/03/22 03:54 Lymphocytes # (Manual) 0.6 K/mm3 (1.2-5.4) L 03/03/22 03:54 Abs React Lymphs (Man) 0.0 K/mm3 03/03/22 03:54 Monocytes # (Manual) 0.4 K/mm3 (0.0-0.8) 03/03/22 03:54 Eosinophils # (Manual) 0.0 K/mm3 (0.0-0.4) 03/03/22 03:54 Basophils # (Manual) 0.0 K/mm3 (0.0-0.1) 03/03/22 03:54 Metamyelocytes # 0.0 K/mm3 03/03/22 03:54 Myelocytes # 0.0 K/mm3 03/03/22 03:54 Promyelocytes # 0.0 K/mm3 03/03/22 03:54 Blast Cells # 0.0 K/mm3 03/03/22 03:54 WBC Morphology Not Reportable 03/03/22 03:54 Hypersegmented Neuts Not Reportable 03/03/22 03:54 Hyposegmented Neuts Not Reportable 03/03/22 03:54 Hypogranular Neuts Not Reportable 03/03/22 03:54 Smudge Cells Not Reportable 03/03/22 03:54 Toxic Granulation Not Reportable 03/03/22 03:54 Toxic Vacuolation Not Reportable 03/03/22 03:54 Dohle Bodies Not Reportable 03/03/22 03:54 Pelger-Huet Anomaly Not Reportable 03/03/22 03:54 Lakshmi Rods Not Reportable 03/03/22 03:54 Platelet Estimate Consistent w auto 03/03/22 03:54 Clumped Platelets Not Reportable 03/03/22 03:54 Plt Clumps, EDTA Not Reportable 03/03/22 03:54 Large Platelets Not Reportable 03/03/22 03:54 Giant Platelets Not Reportable 03/03/22 03:54 Platelet Satelliting Not Reportable 03/03/22 03:54 Plt Morphology Comment Not Reportable 03/03/22 03:54 RBC Morphology Not Reportable 03/03/22 03:54 Dimorphic RBCs Not Reportable 03/03/22 03:54 Polychromasia Not Reportable 03/03/22 03:54 Hypochromasia Not Reportable 03/03/22 03:54 Poikilocytosis Not Reportable 03/03/22 03:54 Anisocytosis 1+ 03/03/22 03:54 Microcytosis Not Reportable 03/03/22 03:54 Macrocytosis Not Reportable 03/03/22 03:54 Spherocytes Not Reportable 03/03/22 03:54 Pappenheimer Bodies Not Reportable 03/03/22 03:54 Sickle Cells Not Reportable 03/03/22 03:54 Target Cells Not Reportable 03/03/22 03:54 Tear Drop Cells Not Reportable 03/03/22 03:54 Ovalocytes Not Reportable 03/03/22 03:54 Helmet Cells Not Reportable 03/03/22 03:54 Orellana-Dailey Bodies Not Reportable 03/03/22 03:54 Oto Rings Not Reportable 03/03/22 03:54 Shelyb Cells Not Reportable 03/03/22 03:54 Bite Cells Not Reportable 03/03/22 03:54 Crenated Cell Not Reportable 03/03/22 03:54 Elliptocytes Not Reportable 03/03/22 03:54 Acanthocytes (Spur) Not Reportable 03/03/22 03:54 Rouleaux Not Reportable 03/03/22 03:54 Hemoglobin C Crystals Not Reportable 03/03/22 03:54 Schistocytes Not Reportable 03/03/22 03:54 Malaria parasites Not Reportable 03/03/22 03:54 Cash Bodies Not Reportable 03/03/22 03:54 Hem Pathologist Commnt No 03/03/22 03:54 PT 16.2 Sec. (12.2-14.9) H 03/11/22 04:02 INR 1.16 (0.87-1.13) H 03/11/22 04:02 ABG pH 7.476 pH Units (7.350-7.450) H 03/11/22 05:10 ABG pCO2 41.2 mm Hg 03/11/22 05:10 ABG pO2 84.0 mm Hg (80.0-90.0) 03/11/22 05:10 ABG HCO3 29.7 mmol/L (20.0-26.0) H 03/11/22 05:10 ABG O2 Saturation 97.1 % (95.0-99.0) 03/11/22 05:10 ABG O2 Content 12.3 (0.0-44) 03/11/22 05:10 ABG Base Excess 5.7 mmol/L (-2.0-3.0) H 03/11/22 05:10 ABG Hemoglobin 9.1 gm/dl (14.0-18.0) L 03/11/22 05:10 ABG Carboxyhemoglobin 1.7 % (0.0-5.0) 03/11/22 05:10 ABG Methemoglobin 0.5 % (0.0-1.5) 03/11/22 05:10 Oxyhemoglobin 95.0 % (95.0-99.0) 03/11/22 05:10 FiO2 30 % 03/11/22 05:10 Sodium 139 mmol/L (137-145) 03/14/22 03:58 Potassium 4.1 mmol/L (3.6-5.0) 03/14/22 03:58 Chloride 103.7 mmol/L (98-107) 03/14/22 03:58 Carbon Dioxide 29 mmol/L (22-30) 03/14/22 03:58 Anion Gap 10 mmol/L 03/14/22 03:58 BUN 15 mg/dL (9-20) 03/14/22 03:58 Creatinine 0.6 mg/dL (0.8-1.3) L 03/14/22 03:58 Estimated GFR > 60 ml/min 03/14/22 03:58 BUN/Creatinine Ratio 25 % 03/14/22 03:58 Glucose 93 mg/dL (75-100) 03/14/22 03:58 POC Glucose 100 mg/dL (70-105) 03/14/22 05:37 Lactic Acid 1.20 mmol/L (0.7-2.0) 02/18/22 21:02 Calcium 8.2 mg/dL (8.4-10.2) L 03/14/22 03:58 Phosphorus 4.10 mg/dL (2.5-4.5) 03/14/22 03:58 Magnesium 2.10 mg/dL (1.7-2.3) 03/14/22 03:58 Total Bilirubin 0.30 mg/dL (0.1-1.2) 03/10/22 03:57 AST 17 units/L (5-40) 03/10/22 03:57 ALT 18 units/L (7-56) 03/10/22 03:57 Alkaline Phosphatase 89 units/L (35-129) 03/10/22 03:57 Ammonia 14.0 umol/L (25-60) L 02/18/22 23:22 Troponin T < 0.010 ng/mL (0.00-0.029) 02/18/22 21:02 Total Protein 6.6 g/dL (6.3-8.2) 03/10/22 03:57 Albumin 1.9 g/dL (3.9-5) L 03/10/22 03:57 Albumin/Globulin Ratio 0.4 % 03/10/22 03:57 Urine Color Dark yellow (Yellow) 02/18/22 Unknown Urine Turbidity Clear (Clear) 02/18/22 Unknown Urine pH 7.0 (5.0-7.0) 02/18/22 Unknown Ur Specific [place] 1.015 (1.003-1.030) 02/18/22 Unknown Urine Protein <15 mg/dl mg/dL (Negative) 02/18/22 Unknown Urine Glucose (UA) Negative mg/dL (Negative) 02/18/22 Unknown Urine Ketones Negative mg/dL (Negative) 02/18/22 Unknown Urine Blood Trace (Negative) 02/18/22 Unknown Urine Nitrite Negative (Negative) 02/18/22 Unknown Urine Bilirubin Negative (Negative) 02/18/22 Unknown Urine Urobilinogen < 2.0 mg/dL (<2.0) 02/18/22 Unknown Ur Leukocyte Esterase Negative (Negative) 02/18/22 Unknown Urine WBC (Auto) 2.0 /HPF (0.0-6.0) 02/18/22 Unknown Urine RBC (Auto) 9.0 /HPF (0.0-6.0) 02/18/22 Unknown Urine Mucus Few /HPF 02/18/22 Unknown Urine Opiates Screen Negative 02/18/22 Unknown Urine Methadone Screen Negative 02/18/22 Unknown Ur Barbiturates Screen Negative 02/18/22 Unknown Ur Phencyclidine Scrn Negative 02/18/22 Unknown Ur Amphetamines Screen Negative 02/18/22 Unknown U Benzodiazepines Scrn Negative 02/18/22 Unknown Urine Cocaine Screen Negative 02/18/22 Unknown U Marijuana (THC) Screen Negative 02/18/22 Unknown Drugs of Abuse Note Disclamer 02/18/22 Unknown Plasma/Serum Alcohol < 0.01 % (0-0.07) 02/18/22 21:02 Horowitz/IV: Voiding Method Indwelling Catheter Active Medications - Current Medications Current Medications: Generic Name Dose Route Start Last Admin Trade Name Freq PRN Reason Stop Dose Admin Acetaminophen 650 mg 03/03/22 09:00 Acetaminophen 325 Mg/10.15 Ml Oral Liqd Unit Dose FEEDTUBE Q4H PRN Pain, Mild (1-3); TEMP > 100.4 Albuterol 2.5 mg 03/12/22 20:00 03/14/22 14:15 Albuterol 2.5 Mg/3 Ml Nebu IH 2.5 mg Q6HRT LAZARUS Administration Famotidine 20 mg 02/25/22 10:00 03/14/22 09:54 Famotidine 20 Mg Tab FEEDTUBE 20 mg BID LAZARUS Administration Heparin Sodium (Porcine) 5,000 unit 02/19/22 06:00 03/14/22 06:42 Heparin 5,000 Unit/1 Ml Vial SUB-Q 5,000 unit Q8HR LAZARUS Administration Hydrophilic Ointment 1 applic 02/24/22 15:05 Lip Therapy Vaseline TP Q2HR PRN Dry Lips Levetiracetam 500 mg 02/25/22 22:00 03/14/22 09:54 Levetiracetam 500 Mg/5 Ml Oral Liqd FEEDTUBE 500 mg BID LAZARUS Administration Levothyroxine Sodium 25 mcg 02/26/22 06:00 03/14/22 06:42 Levothyroxine 25 Mcg Tab FEEDTUBE 25 mcg QAM@0600 LAZARUS Administration Magnesium Hydroxide 30 ml 02/19/22 02:02 Magnesium Hydroxide (Mom) Oral Liqd Udc PO Q4H PRN Constipation Multi-Ingred Cream/Lotion/Oil/Oint 1 applic 02/24/22 15:05 Mineral Oil/Petrolatum, White Ophth Oint 3.5 Gm OU Q4HR PRN Dry Eye(s) Ondansetron HCl 4 mg 02/19/22 02:02 Ondansetron 4 Mg/2 Ml Inj IV Q8H PRN Nausea And Vomiting Pravastatin Sodium 40 mg 02/25/22 22:00 03/13/22 21:45 Pravastatin 40 Mg Tab FEEDTUBE 40 mg QHS LAZARUS Administration Senna/Docusate Sodium 1 tab 02/24/22 22:00 03/14/22 09:54 Sennosides/Docusate Sodium 8.6/50 Mg Tab FEEDTUBE 1 tab BID LAZARUS Administration Sodium Chloride 10 ml 02/19/22 10:00 03/14/22 09:54 Sodium Chloride 0.9% 10 Ml Flush Syringe IV 10 ml BID LAZARUS Administration Sodium Chloride 10 ml 02/19/22 02:02 03/03/22 14:21 Sodium Chloride 0.9% 10 Ml Flush Syringe IV 10 ml PRN PRN Administration LINE FLUSH Nutrition/Malnutrition Assess - Dietary Evaluation Nutrition/Malnutrition Findings: Nutrition Notes Start: 02/19/22 14:29 Freq: Status: Active Protocol: Document 03/07/22 14:34 IVAN (Rec: 03/07/22 14:44 IVAN [email or web address]) Nutrition Notes Initial or Follow up Reassessment Current Diagnosis Hypertension,Respiratory Failure,Hyperlipidemia Other Pertinent Diagnosis Asp pneu, acute encephalopathy , seizure d/o, partial blindness Current Diet TF - Vital AF 1.2 at 50ml/hr Labs/Tests Reviewed Pertinent Medications Reviewed Height 5 ft 3 in Weight 63.2 kg [place] Body Weight (kg) 56.36 BMI 24.7 Weight change and time frame Unable to obtain current wt; bed scale not working - RN aware Weight Status Appropriate Subjective/Other Information Observed TF infusing at goal rate. Pt tolerating TF and remains on vent support. Pt been intubated since 02/24/22 via ETT. Trach/PEG placement pending. Percent of energy/protein needs met: 90% energy 100% pro Burn Absent Trauma Absent #1 Nutrition Diagnosis Inadequate oral intake Diagnosis Progress(for reassessment Continues documentation) Is patient on ventilator? Yes Is Patient Ambulatory and/or Out of Bed No REE-([place]-confined to bed) [phone] Calculation Used for Recommendations [facility] Additional Notes Pro needs 1.2-2g/k-126g/ day Fluid needs 1ml/kcal Nutrition Intervention Nutrition Support: Continue Vital AF 1.2 at 50ml/ hr with 75ml water flush q4h. Kcal 1,440 Protein (gm) 90 Carbohydrates (gm) 133 Fat (gm) 65 Fluid (mL) 973 Fiber (gm) 6 Goal #1 TF tolerance Goal #2 TF to meet at least 75% energy and pro needs Follow-Up By: 03/14/22 Additional Comments F/U: stable TF, trach/PEG placement, vent status, wt
[2022-03-13] MEDS ORDERED: MORPHINE 2 MG/1 ML INJ IV PRN (14:29)
[2022-03-13] MEDS: PRAVASTATIN 40 MG TAB FEEDTUBE SCH (21:45)
[2022-03-14] MEDS: ALBUTEROL 2.5 MG/3 ML NEBU IH SCH ×4 (02:39→19:47)
[2022-03-14 04:44] LABS: Hemoglobin 9.7 gm/dl (11.8-15.2); Mean Corpuscular HGB Conc 33 % (32-34); Mean Corpuscular Volume 101 fl (84-94); Platelet Count 384 K/mm3 (140-440); Red Blood Count 2.97 M/mm3 (3.65-5.03); Red Cell Distribution Width 16.7 % (13.2-15.2)
[2022-03-14 04:53] LABS: Blood Urea Nitrogen 15 mg/dL (9-20); Calcium 8.2 mg/dL (8.4-10.2); Hemolysis Index 1
[2022-03-14 04:59] LABS: BUN/Creatinine Ratio 25
[2022-03-14] MEDS: LEVOTHYROXINE 25 MCG TAB FEEDTUBE SCH (06:42)
[2022-03-14] MEDS: HEPARIN 5,000 UNIT/1 ML VIAL SUB-Q SCH ×3 (06:42→21:15)
[2022-03-14] MEDS: FAMOTIDINE 20 MG TAB FEEDTUBE SCH ×2 (09:54→21:16)
[2022-03-14] MEDS: SENNOSIDES/DOCUSATE SODIUM 8.6/50 MG TAB FEEDTUBE SCH ×2 (09:54→21:16)
[2022-03-14] MEDS: levETIRAcetam 500 MG/5 ML ORAL LIQD FEEDTUBE SCH ×2 (09:54→21:16)
--- NOTE | 2022-03-14 12:34 | Progress Note ---
Assessment and Plan 61 y/o male with abnormal CT of chest. 03/14/22: Day 18 of intubation. Vitals stable and mental status is unchanged. Still in need of tracheostomy as well as peg tube placement. No guardian appointed yet. 03/13/22: Day 17 of intubation. Agree with bolus and restarting of midodrine. was stopped previously secondary to bradycardia. If patient spikes temp, will culture blood and urine and repeat CXR. Continue daily PSV trials to assess ability for vent liberation. Continues to need trach however no family/guardian to provide consent. Guarded prognosis. 03/12/22: Day 16 of intubation. Following up with hospital in regards to guardian. Continue supportive measures. Guarded prognosis. 03/11/22: hospital now attempting to find emergency guardian to have consent for trach as ethics committee cannot comment on this matter so unable to help. Until then will remain intubated orally. Failed PSV yesterday, will continue to attempt on daily basis. Unfortunate situation. Guarded prognosis. 03/10/22: Today nuñez day 14 of intubation. Given patient's mental state and increased risk of aspiration, the likelihood of conventional extubation with success is very very slim and the patient has already failed this in an e xtremely short period of time (less than 1 hour). I suspect that he will fail again if tried and could create more difficult reintubation as he was a difficult reintubation on his failed extubation attempt. To prevent further decline and potential complications of prolonged mechanical ventilation, will discuss with ethics and the hospital to use 2 physician consent to obtain trach and peg for this patient with hopes of liberating him from the mechanical ventilator. he has very minimal vent requirements but as been stated several times above, he continues to aspirate and failed conventional extubation almost immediately. Will consult surgery today. Dr. Mancia is prepared to sign consent as well as myself. Hopeful surgery will be on board with this. Continue supportive care for now. Attempt daily PSV trials. 03/07/22: Daily PSV trials as tolerated. Still no one to step up as adult friend. patient has now been intubated since 02/24/22 and is approaching the time period in which prolonged mechanical ventilation could lead to significant complications that could be detrimental to health (infection, stenosis, malacia etc). Will discuss again with ethics but in regards to medical necessity, may need to consider two physician consent if no one is able to claim responsibility for this patient. He is a full code and we must work in his best interest to prevent further harm. Continue supportive measures but he is not a candidate for conventional extubation given his mental state, despite being on minimal support. He has already failed this before. 03/06/22: PSV trials daily. Will discuss with RT. Spoke with ethics. Plan in place and awaiting on news from [facility] and [facility]. Continue supportive measures. Patient has been intubated since 02/24/22 and is approaching the 2 week shadi of intubation will need to make decisions soon to avoid unnecessary complications related to prolonged intubation. 03/05/22: Will follow up with ethics today. Awaiting some guidance about consent for trach and peg. This is a medical necessity to liberate patient from mechanical ventilation. Continue supportive measures. Ok with daily PSV trials 03/04/22: Follow up with ethics later this afternoon. Spoke with RT and patient does have cuff leak, will stop steroids. Stopping midodrine as BP is stable and bradycardia likely from this. 03/03/22: Await ethics eval. CM has spoken with state as well. Daily cuff leaks. Will start to wean steroids tomorrow. Midodrine can cause bradycardia. If continues or worsens will stop. Guarded prognosis. 03/02/22: Continue supportive measures. Await ethics consult before surgery consult for trach and peg. no further need for fluid boluses. Will continue stress dose steroids but have daily air leak checks by RT. Still will need trach, will not attempt extubation again. Guarded prognosis. 03/01/22: Patient is having increased urine output. This could be the cause of new onset hypotension. Will bolus 2 more liters of LR now and reassess. If this continues may need to work up for SIADH including repeat head CT. Follow up ethics review of case. Will need trach for ventilator liberation. Overall prognosis remains guarded. 02/28/22: Will obtain CT neck, noncontrast to look for airway edema or other possible etiologies for failure. Needs ethics consult as given patient's mental state, inability to clear secretions appropriately, will need trach now that he has failed extubation. However he has no family and no POA so no one to give consent. Continue supportive measures. Guarded prognosis. 02/27/22: Continue improvement of oxygenation. Will drop PEEP down today with goal of being at 6 by in the morning. Will repeat CT scan to confirm improvement as no endobronchial lesion was seen, but also to make sure no parenchymal mass. There was no evidence of extrinsic compression during bronch. Likely extubation tomorrow post CT. 02/26/22: Repeat CXR now. Wean Vent as tolerated. Hopeful extubation soon. Mucous removed. NO ENDOBRONCHIAL LESION/MASS 02/25/22: Bronch tentatively planned for tomorrow with therapeutic scope. Awaiting GI lab to give a time. NPO after midnight. Continue high PEEP 02/24/22: WIll attempt to bronch tomorrow morning. NPO after midnight. Just received word from GI lab they are not able to do bronch tomorrow. Cancel NPO order. Continue to feed patient. Repeat ABG in AM along with CXR. 02/21/22: No new pulm recs for today. Please obtain repeat CXR likely on Thursday. If patient happens to get worse, likely not a candidate for bipap given his weak cough and mental state and inability to communicate. If worsens and requires intubation, will bronch then under emergent circumstances if no POA or family is able to be located. Continue CPT. Will discuss with RT about NT suctioning. 02/20/22: Saw speech while on the floor. Would like patient to be NPO now. Discussed with nurse on floor and with IMS. Same recs pulm way as yesterday. Would benefit from bronch if able to get consent as this is not emergent. Continue CPT and q shift NT suctioning. Reviewed admission in the past and of note, patient was recently admitted last month and had a CXR done on the 29 of January that was normal. Given this patient's medical history and the history that I obtained from the nursing staff that at the residential he was eating solid foods, I suspect that this is aspiration, possibly of a foreign body (most likely food) with atelectasis of the right lower lobe. It is highly unlikely that a mass evolved in size in less than a months time and patient, besides age, has no real risk factors for lung carcinoma. Discussed with the nurse and unfortunately there is no identifiable person that is able to give consent. Bronchoscopy is needed in the case to evaluate to see if lung mass is there vs foreign body, but at this time not able to do. In the meanwhile will recommend the following. 1. Will order CPT with neb therapy 3x daily 2. Suggest maybe NT suctioning q shift. May use nasal trumpet, however do not leave this device in the patient 3. Aspiration precautions 4. Consider speech eval to assess swallowing. Will continue to follow. CCT 31 minutes. Subjective Date of service: 03/14/22 Principal diagnosis: f/u Acute respiratory failure Interval history: No acute events. Tolerating PSV today but high levels of pressure (20). Per RT will try to wean down. No apnea so far. Objective Vital Signs - 12hr 03/14/22 03/14/22 03/14/22 01:00 02:00 02:39 Temperature Pulse Rate 79 80 Pulse Rate [ 94 H Bilateral Throughout] Pulse Rate [ From Monitor] Respiratory 14 16 Rate Respiratory 15 Rate [Bilateral Throughout] Blood Pressure 135/68 136/68 O2 Sat by Pulse 98 97 Oximetry 03/14/22 03/14/22 03/14/22 03:00 04:00 04:15 Temperature 97.3 F L Pulse Rate 80 80 70 Pulse Rate [ Bilateral Throughout] Pulse Rate [ 75 From Monitor] Respiratory 17 16 Rate Respiratory Rate [Bilateral Throughout] Blood Pressure 141/63 130/71 130/71 O2 Sat by Pulse 95 97 98 Oximetry 03/14/22 03/14/22 03/14/22 05:00 06:00 07:00 Temperature Pulse Rate 69 71 98 H Pulse Rate [ Bilateral Throughout] Pulse Rate [ From Monitor] Respiratory 14 15 19 Rate Respiratory Rate [Bilateral Throughout] Blood Pressure 130/71 110/58 156/85 O2 Sat by Pulse 98 99 96 Oximetry 03/14/22 03/14/22 03/14/22 08:00 08:15 09:00 Temperature 97.9 F Pulse Rate 78 81 Pulse Rate [ 80 Bilateral Throughout] Pulse Rate [ From Monitor] Respiratory 14 14 Rate Respiratory 14 Rate [Bilateral Throughout] Blood Pressure 124/70 127/68 O2 Sat by Pulse 96 97 Oximetry 03/14/22 03/14/22 03/14/22 09:41 10:01 11:01 Temperature Pulse Rate 108 H 103 H 108 H Pulse Rate [ Bilateral Throughout] Pulse Rate [ From Monitor] Respiratory 17 15 Rate Respiratory Rate [Bilateral Throughout] Blood Pressure 133/65 165/81 O2 Sat by Pulse 93 94 93 Oximetry 03/14/22 03/14/22 12:00 12:05 Temperature Pulse Rate 82 78 Pulse Rate [ Bilateral Throughout] Pulse Rate [ From Monitor] Respiratory 15 Rate Respiratory Rate [Bilateral Throughout] Blood Pressure 99/54 99/54 O2 Sat by Pulse 96 97 Oximetry Constitutional: alert, other (critically ill on ventilator) Eyes: non-icteric ENT: oropharynx moist Neck: supple Effort: normal Ascultation: Bilateral: diminished breath sounds, rhonchi Cardiovascular: regular rate and rhythm (no mrg) Gastrointestinal: normoactive bowel sounds, soft, non-tender (on o2 vest in place), non-distended Integumentary: normal Extremities: no cyanosis, no edema Neurologic: other (awake) Psychiatric: other (unable to assess) CBC and BMP: 03/14/22 03:58 03/14/22 03:58 ABG, PT/INR, D-dimer: ABG ABG pH 7.476 pH Units (7.350-7.450) H 03/11/22 05:10 ABG pCO2 41.2 mm Hg 03/11/22 05:10 ABG pO2 84.0 mm Hg (80.0-90.0) 03/11/22 05:10 ABG O2 Saturation 97.1 % (95.0-99.0) 03/11/22 05:10 PT/INR, D-dimer PT 16.2 Sec. (12.2-14.9) H 03/11/22 04:02 INR 1.16 (0.87-1.13) H 03/11/22 04:02 Abnormal lab findings: Abnormal Labs 02/18/22 02/18/22 02/18/22 19:34 21:02 21:02 WBC RBC Hgb Hct MCV 101 H MCH 34 H MCHC RDW 16.1 H Lymph % (Auto) Wilkinson % (Auto) 12.4 H Lymph # (Auto) Wilkinson # (Auto) 1.2 H Seg Neutrophils % 73.0 H Seg Neuts % (Manual) Lymphocytes % (Manual) Seg Neutrophils # Seg Neutrophils # Man Lymphocytes # (Manual) PT 16.9 H INR 1.20 H ABG pH ABG pO2 ABG HCO3 ABG O2 Saturation ABG Base Excess ABG Hemoglobin Oxyhemoglobin Sodium Potassium Chloride Carbon Dioxide BUN Creatinine Glucose POC Glucose 116 H Calcium Phosphorus AST ALT Ammonia Albumin 02/18/22 02/18/22 02/18/22 21:02 22:45 23:22 WBC RBC Hgb Hct MCV MCH MCHC RDW Lymph % (Auto) Wilkinson % (Auto) Lymph # (Auto) Wilkinson # (Auto) Seg Neutrophils % Seg Neuts % (Manual) Lymphocytes % (Manual) Seg Neutrophils # Seg Neutrophils # Man Lymphocytes # (Manual) PT INR ABG pH ABG pO2 55.6 L ABG HCO3 28.4 H ABG O2 Saturation 91.5 L ABG Base Excess 3.8 H ABG Hemoglobin 13.2 L Oxyhemoglobin 89.6 L Sodium Potassium 5.1 H Chloride Carbon Dioxide BUN Creatinine Glucose 102 H POC Glucose Calcium Phosphorus AST 48 H ALT 64 H Ammonia 14.0 L Albumin 2.7 L 02/20/22 02/20/22 02/23/22 04:59 04:59 06:29 WBC 11.4 H RBC Hgb Hct MCV 103 H MCH 33 H MCHC RDW 16.5 H Lymph % (Auto) 5.5 L Wilkinson % (Auto) 12.1 H Lymph # (Auto) 0.6 L Wilkinson # (Auto) 1.4 H Seg Neutrophils % 81.4 H Seg Neuts % (Manual) Lymphocytes % (Manual) Seg Neutrophils # 9.2 H Seg Neutrophils # Man Lymphocytes # (Manual) PT INR ABG pH ABG pO2 ABG HCO3 ABG O2 Saturation ABG Base Excess ABG Hemoglobin Oxyhemoglobin Sodium Potassium Chloride Carbon Dioxide BUN Creatinine Glucose POC Glucose 113 H Calcium 8.2 L Phosphorus AST ALT Ammonia Albumin 02/23/22 02/23/22 02/24/22 11:22 16:10 00:02 WBC RBC Hgb Hct MCV MCH MCHC RDW Lymph % (Auto) Wilkinson % (Auto) Lymph # (Auto) Wilkinson # (Auto) Seg Neutrophils % Seg Neuts % (Manual) Lymphocytes % (Manual) Seg Neutrophils # Seg Neutrophils # Man Lymphocytes # (Manual) PT INR ABG pH ABG pO2 ABG HCO3 ABG O2 Saturation ABG Base Excess ABG Hemoglobin Oxyhemoglobin Sodium Potassium Chloride Carbon Dioxide BUN Creatinine Glucose POC Glucose 108 H 115 H 109 H Calcium Phosphorus AST ALT Ammonia Albumin 02/24/22 02/24/22 02/24/22 11:05 11:05 13:20 WBC RBC 3.55 L Hgb Hct MCV 100 H MCH 34 H MCHC RDW 15.6 H Lymph % (Auto) Wilkinson % (Auto) Lymph # (Auto) Wilkinson # (Auto) Seg Neutrophils % Seg Neuts % (Manual) Lymphocytes % (Manual) Seg Neutrophils # Seg Neutrophils # Man Lymphocytes # (Manual) PT INR ABG pH ABG pO2 ABG HCO3 ABG O2 Saturation ABG Base Excess ABG Hemoglobin Oxyhemoglobin Sodium 146 H Potassium 3.2 L D Chloride 108.4 H Carbon Dioxide BUN Creatinine 0.5 L Glucose POC Glucose 111 H Calcium 7.9 L Phosphorus 2.20 L AST ALT Ammonia Albumin 02/24/22 02/24/22 02/24/22 16:30 17:03 20:25 WBC RBC Hgb Hct MCV MCH MCHC RDW Lymph % (Auto) Wilkinson % (Auto) Lymph # (Auto) Wilkinson # (Auto) Seg Neutrophils % Seg Neuts % (Manual) Lymphocytes % (Manual) Seg Neutrophils # Seg Neutrophils # Man Lymphocytes # (Manual) PT INR ABG pH 7.319 L ABG pO2 65.3 L ABG HCO3 31.3 H ABG O2 Saturation 92.2 L ABG Base Excess 3.8 H ABG Hemoglobin 12.0 L Oxyhemoglobin 90.3 L Sodium Potassium Chloride 107.9 H Carbon Dioxide BUN 8 L Creatinine 0.4 L Glucose POC Glucose 108 H Calcium 7.6 L Phosphorus 4.60 H D AST ALT Ammonia Albumin 02/25/22 02/25/22 02/25/22 04:12 04:12 05:05 WBC RBC 3.07 L Hgb 10.2 L Hct 31.5 L MCV 103 H MCH 33 H MCHC RDW 15.6 H Lymph % (Auto) Wilkinson % (Auto) Lymph # (Auto) Wilkinson # (Auto) Seg Neutrophils % Seg Neuts % (Manual) Lymphocytes % (Manual) Seg Neutrophils # Seg Neutrophils # Man Lymphocytes # (Manual) PT INR ABG pH ABG pO2 ABG HCO3 32.5 H ABG O2 Saturation ABG Base Excess 5.6 H ABG Hemoglobin 10.8 L Oxyhemoglobin 94.8 L Sodium Potassium 3.5 L Chloride 107.7 H Carbon Dioxide BUN Creatinine 0.5 L Glucose POC Glucose Calcium 7.0 L Phosphorus AST ALT Ammonia Albumin 02/25/22 02/25/22 02/26/22 12:05 18:33 00:07 WBC RBC Hgb Hct MCV MCH MCHC RDW Lymph % (Auto) Wilkinson % (Auto) Lymph # (Auto) Wilkinson # (Auto) Seg Neutrophils % Seg Neuts % (Manual) Lymphocytes % (Manual) Seg Neutrophils # Seg Neutrophils # Man Lymphocytes # (Manual) PT INR ABG pH ABG pO2 ABG HCO3 ABG O2 Saturation ABG Base Excess ABG Hemoglobin Oxyhemoglobin Sodium Potassium Chloride Carbon Dioxide BUN Creatinine Glucose POC Glucose 127 H 125 H 114 H Calcium Phosphorus AST ALT Ammonia Albumin 02/26/22 02/26/22 02/26/22 03:30 04:42 11:34 WBC RBC Hgb Hct MCV MCH MCHC RDW Lymph % (Auto) Wilkinson % (Auto) Lymph # (Auto) Wilkinson # (Auto) Seg Neutrophils % Seg Neuts % (Manual) Lymphocytes % (Manual) Seg Neutrophils # Seg Neutrophils # Man Lymphocytes # (Manual) PT INR ABG pH ABG pO2 143.2 H ABG HCO3 33.2 H ABG O2 Saturation ABG Base Excess 6.5 H ABG Hemoglobin 9.4 L Oxyhemoglobin Sodium Potassium Chloride Carbon Dioxide 32 H BUN Creatinine 0.7 L Glucose POC Glucose 114 H Calcium 8.0 L Phosphorus AST ALT Ammonia Albumin 02/26/22 02/26/22 02/27/22 18:17 23:37 04:19 WBC 13.7 H RBC 2.78 L Hgb 9.3 L Hct 28.5 L MCV 103 H MCH 33 H MCHC RDW 16.3 H Lymph % (Auto) Wilkinson % (Auto) Lymph # (Auto) Wilkinson # (Auto) Seg Neutrophils % Seg Neuts % (Manual) Lymphocytes % (Manual) Seg Neutrophils # Seg Neutrophils # Man Lymphocytes # (Manual) PT INR ABG pH ABG pO2 ABG HCO3 ABG O2 Saturation ABG Base Excess ABG Hemoglobin Oxyhemoglobin Sodium Potassium Chloride Carbon Dioxide BUN Creatinine Glucose POC Glucose 111 H 117 H Calcium Phosphorus AST ALT Ammonia Albumin 02/27/22 02/27/22 02/27/22 04:19 04:35 05:27 WBC RBC Hgb Hct MCV MCH MCHC RDW Lymph % (Auto) Wilkinson % (Auto) Lymph # (Auto) Wilkinson # (Auto) Seg Neutrophils % Seg Neuts % (Manual) Lymphocytes % (Manual) Seg Neutrophils # Seg Neutrophils # Man Lymphocytes # (Manual) PT INR ABG pH ABG pO2 96.3 H ABG HCO3 34.9 H ABG O2 Saturation ABG Base Excess 8.1 H ABG Hemoglobin Oxyhemoglobin Sodium Potassium Chloride Carbon Dioxide 31 H BUN Creatinine 0.6 L Glucose 107 H POC Glucose 133 H Calcium 7.8 L Phosphorus AST ALT Ammonia Albumin 02/27/22 02/27/22 02/28/22 11:15 23:35 03:38 WBC 13.3 H RBC 3.05 L Hgb 10.2 L Hct 30.7 L MCV 101 H MCH 33 H MCHC RDW 16.1 H Lymph % (Auto) Wilkinson % (Auto) Lymph # (Auto) Wilkinson # (Auto) Seg Neutrophils % Seg Neuts % (Manual) Lymphocytes % (Manual) Seg Neutrophils # Seg Neutrophils # Man Lymphocytes # (Manual) PT INR ABG pH ABG pO2 ABG HCO3 ABG O2 Saturation ABG Base Excess ABG Hemoglobin Oxyhemoglobin Sodium Potassium Chloride Carbon Dioxide BUN Creatinine Glucose POC Glucose 129 H 122 H Calcium Phosphorus AST ALT Ammonia Albumin 02/28/22 02/28/22 02/28/22 04:50 05:30 09:30 WBC RBC Hgb Hct MCV MCH MCHC RDW Lymph % (Auto) Wilkinson % (Auto) Lymph # (Auto) Wilkinson # (Auto) Seg Neutrophils % Seg Neuts % (Manual) Lymphocytes % (Manual) Seg Neutrophils # Seg Neutrophils # Man Lymphocytes # (Manual) PT INR ABG pH 7.451 H 7.488 H ABG pO2 77.0 L ABG HCO3 37.1 H 34.6 H ABG O2 Saturation ABG Base Excess 11.5 H 10.1 H ABG Hemoglobin 10.1 L 10.0 L Oxyhemoglobin Sodium Potassium Chloride Carbon Dioxide BUN Creatinine Glucose POC Glucose 121 H Calcium Phosphorus AST ALT Ammonia Albumin 02/28/22 02/28/22 03/01/22 11:36 23:07 04:27 WBC 12.5 H RBC 2.85 L Hgb 9.5 L Hct 28.6 L MCV 101 H MCH 33 H MCHC RDW 15.7 H Lymph % (Auto) Wilkinson % (Auto) Lymph # (Auto) Wilkinson # (Auto) Seg Neutrophils % Seg Neuts % (Manual) Lymphocytes % (Manual) Seg Neutrophils # Seg Neutrophils # Man Lymphocytes # (Manual) PT INR ABG pH ABG pO2 ABG HCO3 ABG O2 Saturation ABG Base Excess ABG Hemoglobin Oxyhemoglobin Sodium Potassium Chloride Carbon Dioxide BUN Creatinine Glucose POC Glucose 112 H 107 H Calcium Phosphorus AST ALT Ammonia Albumin 03/01/22 03/01/22 03/01/22 04:27 05:05 11:29 WBC RBC Hgb Hct MCV MCH MCHC RDW Lymph % (Auto) Wilkinson % (Auto) Lymph # (Auto) Wilkinson # (Auto) Seg Neutrophils % Seg Neuts % (Manual) Lymphocytes % (Manual) Seg Neutrophils # Seg Neutrophils # Man Lymphocytes # (Manual) PT INR ABG pH ABG pO2 ABG HCO3 ABG O2 Saturation ABG Base Excess ABG Hemoglobin Oxyhemoglobin Sodium 147 H D Potassium Chloride Carbon Dioxide 34 H BUN Creatinine 0.6 L Glucose 128 H POC Glucose 119 H 121 H Calcium 7.9 L Phosphorus AST ALT Ammonia Albumin 03/01/22 03/01/22 03/02/22 16:15 23:57 05:18 WBC RBC Hgb Hct MCV MCH MCHC RDW Lymph % (Auto) Wilkinson % (Auto) Lymph # (Auto) Wilkinson # (Auto) Seg Neutrophils % Seg Neuts % (Manual) Lymphocytes % (Manual) Seg Neutrophils # Seg Neutrophils # Man Lymphocytes # (Manual) PT INR ABG pH ABG pO2 110.5 H ABG HCO3 33.0 H ABG O2 Saturation ABG Base Excess 7.4 H ABG Hemoglobin 8.6 L Oxyhemoglobin Sodium Potassium Chloride Carbon Dioxide BUN Creatinine Glucose POC Glucose 134 H 140 H Calcium Phosphorus AST ALT Ammonia Albumin 03/02/22 03/02/22 03/02/22 05:53 09:04 09:04 WBC 15.0 H RBC 3.00 L Hgb 9.7 L Hct 30.7 L MCV 102 H MCH MCHC RDW 16.6 H Lymph % (Auto) Wilkinson % (Auto) Lymph # (Auto) Wilkinson # (Auto) Seg Neutrophils % Seg Neuts % (Manual) Lymphocytes % (Manual) Seg Neutrophils # Seg Neutrophils # Man Lymphocytes # (Manual) PT INR ABG pH ABG pO2 ABG HCO3 ABG O2 Saturation ABG Base Excess ABG Hemoglobin Oxyhemoglobin Sodium Potassium Chloride Carbon Dioxide 31 H BUN Creatinine 0.6 L Glucose 157 H POC Glucose 158 H Calcium 7.9 L Phosphorus AST ALT Ammonia Albumin 03/02/22 03/02/22 03/02/22 11:36 16:25 23:17 WBC RBC Hgb Hct MCV MCH MCHC RDW Lymph % (Auto) Wilkinson % (Auto) Lymph # (Auto) Wilkinson # (Auto) Seg Neutrophils % Seg Neuts % (Manual) Lymphocytes % (Manual) Seg Neutrophils # Seg Neutrophils # Man Lymphocytes # (Manual) PT INR ABG pH ABG pO2 ABG HCO3 ABG O2 Saturation ABG Base Excess ABG Hemoglobin Oxyhemoglobin Sodium Potassium Chloride Carbon Dioxide BUN Creatinine Glucose POC Glucose 160 H 132 H 157 H Calcium Phosphorus AST ALT Ammonia Albumin 03/03/22 03/03/22 03/03/22 03:54 03:54 05:27 WBC 19.5 H RBC 2.79 L Hgb 9.0 L Hct 28.6 L MCV 102 H MCH MCHC RDW 16.2 H Lymph % (Auto) Wilkinson % (Auto) Lymph # (Auto) Wilkinson # (Auto) Seg Neutrophils % Seg Neuts % (Manual) 95.0 H Lymphocytes % (Manual) 3.0 L Seg Neutrophils # Seg Neutrophils # Man 18.5 H Lymphocytes # (Manual) 0.6 L PT INR ABG pH ABG pO2 ABG HCO3 ABG O2 Saturation ABG Base Excess ABG Hemoglobin Oxyhemoglobin Sodium Potassium Chloride Carbon Dioxide BUN Creatinine 0.6 L Glucose 130 H POC Glucose 149 H Calcium 8.1 L Phosphorus AST ALT Ammonia Albumin 03/03/22 03/03/22 03/04/22 11:13 17:30 00:02 WBC RBC Hgb Hct MCV MCH MCHC RDW Lymph % (Auto) Wilkinson % (Auto) Lymph # (Auto) Wilkinson # (Auto) Seg Neutrophils % Seg Neuts % (Manual) Lymphocytes % (Manual) Seg Neutrophils # Seg Neutrophils # Man Lymphocytes # (Manual) PT INR ABG pH ABG pO2 ABG HCO3 ABG O2 Saturation ABG Base Excess ABG Hemoglobin Oxyhemoglobin Sodium Potassium Chloride Carbon Dioxide BUN Creatinine Glucose POC Glucose 139 H 138 H 157 H Calcium Phosphorus AST ALT Ammonia Albumin 03/04/22 03/04/22 03/04/22 05:32 05:32 05:48 WBC 16.1 H RBC 2.81 L Hgb 9.3 L Hct 28.8 L MCV 102 H MCH 33 H MCHC RDW 16.7 H Lymph % (Auto) Wilkinson % (Auto) Lymph # (Auto) Wilkinson # (Auto) Seg Neutrophils % Seg Neuts % (Manual) Lymphocytes % (Manual) Seg Neutrophils # Seg Neutrophils # Man Lymphocytes # (Manual) PT INR ABG pH ABG pO2 ABG HCO3 ABG O2 Saturation ABG Base Excess ABG Hemoglobin Oxyhemoglobin Sodium Potassium Chloride Carbon Dioxide BUN Creatinine 0.7 L Glucose 135 H POC Glucose 145 H Calcium 8.3 L Phosphorus AST ALT Ammonia Albumin 03/04/22 03/04/22 03/05/22 11:34 16:29 00:28 WBC RBC Hgb Hct MCV MCH MCHC RDW Lymph % (Auto) Wilkinson % (Auto) Lymph # (Auto) Wilkinson # (Auto) Seg Neutrophils % Seg Neuts % (Manual) Lymphocytes % (Manual) Seg Neutrophils # Seg Neutrophils # Man Lymphocytes # (Manual) PT INR ABG pH ABG pO2 ABG HCO3 ABG O2 Saturation ABG Base Excess ABG Hemoglobin Oxyhemoglobin Sodium Potassium Chloride Carbon Dioxide BUN Creatinine Glucose POC Glucose 148 H 140 H 116 H Calcium Phosphorus AST ALT Ammonia Albumin 03/05/22 03/05/22 03/05/22 06:29 11:30 17:38 WBC RBC Hgb Hct MCV MCH MCHC RDW Lymph % (Auto) Wilkinson % (Auto) Lymph # (Auto) Wilkinson # (Auto) Seg Neutrophils % Seg Neuts % (Manual) Lymphocytes % (Manual) Seg Neutrophils # Seg Neutrophils # Man Lymphocytes # (Manual) PT INR ABG pH ABG pO2 ABG HCO3 ABG O2 Saturation ABG Base Excess ABG Hemoglobin Oxyhemoglobin Sodium Potassium Chloride Carbon Dioxide BUN Creatinine Glucose POC Glucose 114 H 114 H 117 H Calcium Phosphorus AST ALT Ammonia Albumin 03/06/22 03/06/22 03/06/22 04:17 04:17 06:06 WBC 13.4 H RBC 2.85 L Hgb 9.4 L Hct 29.0 L MCV 102 H MCH 33 H MCHC RDW 16.4 H Lymph % (Auto) Wilkinson % (Auto) Lymph # (Auto) Wilkinson # (Auto) Seg Neutrophils % Seg Neuts % (Manual) Lymphocytes % (Manual) Seg Neutrophils # Seg Neutrophils # Man Lymphocytes # (Manual) PT INR ABG pH ABG pO2 ABG HCO3 ABG O2 Saturation ABG Base Excess ABG Hemoglobin Oxyhemoglobin Sodium Potassium 3.5 L Chloride Carbon Dioxide 31 H BUN Creatinine 0.6 L Glucose 101 H POC Glucose 106 H Calcium 7.7 L Phosphorus 2.00 L AST ALT Ammonia Albumin 03/06/22 03/06/22 03/07/22 18:04 23:50 05:14 WBC RBC Hgb Hct MCV MCH MCHC RDW Lymph % (Auto) Wilkinson % (Auto) Lymph # (Auto) Wilkinson # (Auto) Seg Neutrophils % Seg Neuts % (Manual) Lymphocytes % (Manual) Seg Neutrophils # Seg Neutrophils # Man Lymphocytes # (Manual) PT INR ABG pH ABG pO2 ABG HCO3 ABG O2 Saturation ABG Base Excess ABG Hemoglobin Oxyhemoglobin Sodium Potassium Chloride Carbon Dioxide BUN Creatinine Glucose POC Glucose 108 H 115 H 116 H Calcium Phosphorus AST ALT Ammonia Albumin 03/07/22 03/07/22 03/08/22 11:42 18:13 04:34 WBC RBC 2.86 L Hgb 9.2 L Hct 29.3 L MCV 103 H MCH MCHC 31 L RDW 16.9 H Lymph % (Auto) Wilkinson % (Auto) Lymph # (Auto) Wilkinson # (Auto) Seg Neutrophils % Seg Neuts % (Manual) Lymphocytes % (Manual) Seg Neutrophils # Seg Neutrophils # Man Lymphocytes # (Manual) PT INR ABG pH ABG pO2 ABG HCO3 ABG O2 Saturation ABG Base Excess ABG Hemoglobin Oxyhemoglobin Sodium Potassium Chloride Carbon Dioxide BUN Creatinine Glucose POC Glucose 123 H 109 H Calcium Phosphorus AST ALT Ammonia Albumin 03/08/22 03/08/22 03/08/22 04:34 11:29 16:34 WBC RBC Hgb Hct MCV MCH MCHC RDW Lymph % (Auto) Wilkinson % (Auto) Lymph # (Auto) Wilkinson # (Auto) Seg Neutrophils % Seg Neuts % (Manual) Lymphocytes % (Manual) Seg Neutrophils # Seg Neutrophils # Man Lymphocytes # (Manual) PT INR ABG pH ABG pO2 ABG HCO3 ABG O2 Saturation ABG Base Excess ABG Hemoglobin Oxyhemoglobin Sodium Potassium Chloride Carbon Dioxide 33 H BUN Creatinine 0.5 L Glucose 109 H POC Glucose 117 H 109 H Calcium 7.6 L Phosphorus AST ALT Ammonia Albumin 03/08/22 03/09/22 03/10/22 23:56 11:15 03:57 WBC RBC 2.99 L Hgb 9.9 L Hct 30.3 L MCV 102 H MCH 33 H MCHC RDW 16.8 H Lymph % (Auto) 13.3 L Wilkinson % (Auto) 12.5 H Lymph # (Auto) Wilkinson # (Auto) 1.3 H Seg Neutrophils % 72.4 H Seg Neuts % (Manual) Lymphocytes % (Manual) Seg Neutrophils # Seg Neutrophils # Man Lymphocytes # (Manual) PT INR ABG pH ABG pO2 ABG HCO3 ABG O2 Saturation ABG Base Excess ABG Hemoglobin Oxyhemoglobin Sodium Potassium Chloride Carbon Dioxide BUN Creatinine Glucose POC Glucose 106 H 110 H Calcium Phosphorus AST ALT Ammonia Albumin 03/10/22 03/10/22 03/10/22 03:57 04:50 16:04 WBC RBC Hgb Hct MCV MCH MCHC RDW Lymph % (Auto) Wilkinson % (Auto) Lymph # (Auto) Wilkinson # (Auto) Seg Neutrophils % Seg Neuts % (Manual) Lymphocytes % (Manual) Seg Neutrophils # Seg Neutrophils # Man Lymphocytes # (Manual) PT INR ABG pH 7.465 H ABG pO2 ABG HCO3 31.9 H ABG O2 Saturation ABG Base Excess 7.3 H ABG Hemoglobin 11.0 L Oxyhemoglobin Sodium Potassium 3.4 L Chloride Carbon Dioxide BUN Creatinine 0.6 L Glucose POC Glucose 115 H Calcium 8.1 L Phosphorus AST ALT Ammonia Albumin 1.9 L 03/11/22 03/11/22 03/11/22 04:02 04:02 04:02 WBC 12.0 H RBC 2.81 L Hgb 9.2 L Hct 29.1 L MCV 103 H MCH 33 H MCHC RDW 17.5 H Lymph % (Auto) Wilkinson % (Auto) Lymph # (Auto) Wilkinson # (Auto) Seg Neutrophils % Seg Neuts % (Manual) Lymphocytes % (Manual) Seg Neutrophils # Seg Neutrophils # Man Lymphocytes # (Manual) PT 16.2 H INR 1.16 H ABG pH ABG pO2 ABG HCO3 ABG O2 Saturation ABG Base Excess ABG Hemoglobin Oxyhemoglobin Sodium Potassium Chloride Carbon Dioxide BUN Creatinine 0.5 L Glucose 104 H POC Glucose Calcium 7.9 L Phosphorus AST ALT Ammonia Albumin 03/11/22 03/11/22 03/11/22 05:10 11:07 16:32 WBC RBC Hgb Hct MCV MCH MCHC RDW Lymph % (Auto) Wilkinson % (Auto) Lymph # (Auto) Wilkinson # (Auto) Seg Neutrophils % Seg Neuts % (Manual) Lymphocytes % (Manual) Seg Neutrophils # Seg Neutrophils # Man Lymphocytes # (Manual) PT INR ABG pH 7.476 H ABG pO2 ABG HCO3 29.7 H ABG O2 Saturation ABG Base Excess 5.7 H ABG Hemoglobin 9.1 L Oxyhemoglobin Sodium Potassium Chloride Carbon Dioxide BUN Creatinine Glucose POC Glucose 108 H 121 H Calcium Phosphorus AST ALT Ammonia Albumin 03/12/22 03/13/22 03/13/22 05:51 06:08 12:02 WBC RBC 2.73 L Hgb 9.0 L Hct 27.5 L MCV 101 H MCH 33 H MCHC RDW 17.2 H Lymph % (Auto) Wilkinson % (Auto) Lymph # (Auto) Wilkinson # (Auto) Seg Neutrophils % Seg Neuts % (Manual) Lymphocytes % (Manual) Seg Neutrophils # Seg Neutrophils # Man Lymphocytes # (Manual) PT INR ABG pH ABG pO2 ABG HCO3 ABG O2 Saturation ABG Base Excess ABG Hemoglobin Oxyhemoglobin Sodium Potassium Chloride Carbon Dioxide BUN Creatinine Glucose POC Glucose 116 H 111 H Calcium Phosphorus AST ALT Ammonia Albumin 03/13/22 03/13/22 03/14/22 12:48 18:17 03:58 WBC RBC 2.97 L Hgb 9.7 L Hct 30.0 L MCV 101 H MCH 33 H MCHC RDW 16.7 H Lymph % (Auto) Wilkinson % (Auto) Lymph # (Auto) Wilkinson # (Auto) Seg Neutrophils % Seg Neuts % (Manual) Lymphocytes % (Manual) Seg Neutrophils # Seg Neutrophils # Man Lymphocytes # (Manual) PT INR ABG pH ABG pO2 ABG HCO3 ABG O2 Saturation ABG Base Excess ABG Hemoglobin Oxyhemoglobin Sodium Potassium Chloride Carbon Dioxide BUN Creatinine Glucose POC Glucose 125 H 114 H Calcium Phosphorus AST ALT Ammonia Albumin 03/14/22 03:58 WBC RBC Hgb Hct MCV MCH MCHC RDW Lymph % (Auto) Wilkinson % (Auto) Lymph # (Auto) Wilkinson # (Auto) Seg Neutrophils % Seg Neuts % (Manual) Lymphocytes % (Manual) Seg Neutrophils # Seg Neutrophils # Man Lymphocytes # (Manual) PT INR ABG pH ABG pO2 ABG HCO3 ABG O2 Saturation ABG Base Excess ABG Hemoglobin Oxyhemoglobin Sodium Potassium Chloride Carbon Dioxide BUN Creatinine 0.6 L Glucose POC Glucose Calcium 8.2 L Phosphorus AST ALT Ammonia Albumin
--- NOTE | 2022-03-14 15:01 | Progress Note ---
Assessment and Plan Assessment and plan: This is a 51-year-old male with HTN, seizure disorder, Down syndrome, HLD, partial blindness admitted with aspiration pneumonia, probable bronchogenic carcinoma, acute hypoxic respiratory failure and acute encephalopathy Neuro: Acute encephalopathy, h/o seizure disorder, Down syndrome, partial blindness -fent IVP -Reorientation as needed -Maintain sleep-wake cycle -aspiration/seizure precautions -As needed analgesia -CT head showed no acute abnormality -Continue Keppra Cardiac: h/o HTN, HLD -Cardiology consulted, appreciate recommendations -Blood pressure monitoring per protocol -Midodrine stopped initially due to bradycardia now stopped due to SBP 120-140s Respiratory: Acute hypoxic respiratory failure, ruled out bronchogenic carcinoma -CCM consulted, appreciate recommendations -Intubated on 02/24 with a 8.0 at 23 at the lips but extubated 02/28 -reintubated 02/28 with 8.0 OETT -Vent settings: AC rate 14, TV 360, PEEP 6, FO2 30% -See RT notes for titration -VAP bundle -SPO2 monitoring -02/18 CTA chest showed no evidence of pulmonary embolism, suspected bronchogenic carcinoma with associated obstruction of the right lower lobe proximal bronchus segment, 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 adenopathy and suspected to left lower lobe metastatic nodule -02/26 Bronch->mucous, no lesion noted -02/27 CT chest showed right mainstem bronchus patent with small amount of interval bronchial fluid which may be mucus (this may account for the appearance of the prior CTA chest fluid-filled airway rather than entering bronchial lesion), previously seen complete left lower lobe since related to bronchial occlusion has significantly improved, there is persistent compressive atelectasis in the right lower lung secondary to the pleural effusion, bilateral pleural effusions, right lung pneumonia -CT neck showed no acute changes -s/p steroids GI: Moderate protein calorie malnutrition -24 hours + 50 mL -PPI -NTR consulted for tube feedings -BR: Senokot S : NAD -Monitor intake and output -Renally dose medications -Avoid nephrotoxic medications -Trend BMP ID: Aspiration PNA (resolved), sacral wound -WC consulted -Dressing changes per nursing -S/p Rocephin for 5 days (02/19-02/24) -Monitor WBC and temperature curve Endo: NAD -Avoid hypoglycemia -Accu-Cheks every 6 -Avoid hypoglycemia Heme: NAD -Trend CBC -Transfuse hemoglobin less than 7 -SCDs to BLE while in bed The high probability of a clinically significant, sudden or life threatening deterioration of the [resp] system(s) required my full and direct attention, intervention and personal management. The aggregate critical care time was [60] minutes. This time is in addition to time spent performing reported procedures but includes the following: [x] Data Review and interpretation [x] Patient assessment and monitoring of vital signs [x] Documentation [x] Medication orders and management Disposition Plan: icu Total Time Spent with Patient (Minutes): 60 History Interval history: This is a 51-year-old male with HTN, seizure disorder, Down syndrome, HLD, and partial blindness was a resident of the [facility] who presented to emergency department on 02/19 for evaluation of change in mental status. Of note patient was recently discharged a few weeks ago for a seizure disorder and UTI. Upon arrival to the emergency department patient was noted to be hypoxic with SPO2 in the 80s on a nonrebreather with difficulty breathing. Work-up in the emergency department revealed CXR which showed elevation of the right hemidiaphragm, right lower lung atelectasis and effusion with mild increased pulmonary vascularity but no pneumothorax and CT of the head did not show any acute abnormality. 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 Patient was admitted to the hospitalist service to the floor. Hospital course to date: 02/19/2022. Consult pulmonary for further evaluation and possible bronchoscopy. I suspect patient has component of aspiration pneumonia as well. We will obtain a speech therapy evaluation for swallowing and start empiric antibiotics. Continue O2 supplementation to maintain sats greater than 92%. 02/20/2022. Pulmonary feels that the abnormality seen on CT scan is highly unlikely for a mass given negative chest x-ray 1 month ago and no risk factors. Etiology is likely secondary to aspiration from possibly a foreign body most likely food with atelectasis of the right lower lobe. Bronchoscopy is needed in the case to evaluate to see if lung mass is there vs foreign body, but at this time not able to do because no identifiable person that is able to give consent. Continue aspiration precautions and continue speech therapy evaluation for swallowing. Keep n.p.o. for now 02/21/2022. Patient remains NPO. Consider DHT placement. Follow-up with speech therapy evaluation. Pulmonology to consider bronchoscopy if able to obtain consent. Continue IV antibiotics for aspiration pneumonia 02/22/2022. Patient remains NPO. Consider DHT placement. Follow-up with speech therapy evaluation. Pulmonology to consider bronchoscopy if able to obtain consent. Continue IV antibiotics for aspiration pneumonia 02/23/2022. DHT placed yesterday. TF initiated for nutritional support. Patient currently with strict NPO. Aspiration precautions. Pulmonology to consider bronchoscopy if able to obtain consent. Continue IV antibiotics for aspiration pneumonia 02/24: Patient was transferred to the ICU for further monitoring. This morning patient remained on high flow nasal cannula on 40 L/100% and despite repeated nasotracheal suctioning patient SPO2 remained in the 80s. Patient was placed on nonrebreather and SPO2 increased to upper 80s. Patient was subsequently intubated by anesthesia. Started on sedation. 02/25: Patient remains sedated on fentanyl, potassium and magnesium repleted. IV fluids and amlodipine discontinued. Possible bronchoscopy tomorrow. 02/26: Patient had a bronchoscopy today which showed mucus and no endobronchial lesions or masses. FiO2 was increased to 100 during and postprocedure weaning as tolerated. Repeat CXR is much improved after bronc. Given 1 L LR bolus due to hypotension. No acute events reported overnight. 02/27: Decreased PEEP, will repeat CT of chest. no acute changes overnight. 02/28: Patient was extubated today however had to be be intubated shortly after. Patient ETT looked mispositioned on x-ray and Dr. Alonzo did do a bedside bronc. Patient was briefly hypotensive and on Levophed postintubation however Levophed was quickly titrated off and patient did not require central line. No acute events reported overnight. Will obtain CT neck d/t difficulty intubating. Ethic committee consulted. 03/01: Overnight patient was hypotensive and started on IVF. Patient started on steroids as no air leak noted and hypotension and given 2 L LR 03/02: Overnight patient received bolus per RN report, no orders seen. Continue supportive care. 03/04: MAIDA overnight. Remains stable on the vent. Awaiting on desicion from [facility] for possible trach and PEG. Continue current supportive measures 03/05: MAIDA overnight. Awaiting on desicion from ethics [facility] for possible trach and PEG. Midodrine held yesterday, HR improved. Continue current supportive measures. Daily PSV trial as tolerated per CCM 03/06: Remains stable on the vent. Continue current supportive measures, daily PSV trial per CCM. Awaiting on desicion for possible trach and PEG. 03/07: MAIDA overnight, remains stable. Continue daily PSV trial as tolerated. Awaiting on desicion for possible trach and PEG. 03/08: Patient failed PSV trial this am due to tachycardia and increase RR. Continue supportive measures and daily PSV trial as tolerated. Possible discussion with ethics and CCM on Thursday in regards to medical necessity, may need to consider two physician consent if no one is able to claim responsibility for this patient. 03/09: MAIDA overnight. Continue current supportive measures and daily PSV trail as tolerated. Awaiting on decision for possible trach and PEG, discussion with Ethics possibly tomorrow per CCM. 03/10: no acute events overnight, PSV today. replete potassium. 03/11: No acute events reported overnight, patient failed PSV yesterday and will repeat today. Hospital to start guardianship process. 03/12: No acute events overnight. PSV today 03/13: Patient given 500ml normal saline and started on midodrine for hypotensi on. No acute events reported overnight. Failed pressure support again this morning. 03/14: No acute events reported overnight, patient blood pressure seems better therefore midodrine discontinued. RT placed on CPAP need lasted for couple hours. Will remove summers Hospitalist Physical - Constitutional Vitals: Temp Pulse Resp BP Pulse Ox 97.6 F 83 13 112/63 99 03/14/22 12:00 03/14/22 14:00 03/14/22 14:00 03/14/22 14:00 03/14/22 14:00 General appearance: Present: no acute distress, well-nourished - EENT Eyes: Present: PERRL, EOM intact ENT: poor dentition - Neck Neck: Present: normal ROM - Respiratory Respiratory effort: normal Respiratory: bilateral: rhonchi - Cardiovascular Rhythm: regular Heart Sounds: Present: S1 & S2. Absent: systolic murmur, diastolic murmur - Extremities Extremities: no ischemia, pulses intact, pulses symmetrical, No edema, normal temperature, normal color Peripheral Pulses: within normal limits - Abdominal General gastrointestinal: soft, non-tender - Integumentary Integumentary: Present: clear, warm, dry - Psychiatric Psychiatric: cooperative - Neurologic Neurologic: CNII-XII intact, no focal deficits, moves all extremities - Allied Health Allied health notes reviewed: nursing, RT, social work HEART Score - HEART Score Troponin: Troponin T < 0.010 ng/mL (0.00-0.029) 02/18/22 21:02 Results - Labs CBC & Chem 7: 03/14/22 03:58 03/14/22 03:58 Labs: Laboratory Last Values WBC 8.5 K/mm3 (4.5-11.0) 03/14/22 03:58 RBC 2.97 M/mm3 (3.65-5.03) L 03/14/22 03:58 Hgb 9.7 gm/dl (11.8-15.2) L 03/14/22 03:58 Hct 30.0 % (35.5-45.6) L 03/14/22 03:58 MCV 101 fl (84-94) H 03/14/22 03:58 MCH 33 pg (28-32) H 03/14/22 03:58 MCHC 33 % (32-34) 03/14/22 03:58 RDW 16.7 % (13.2-15.2) H 03/14/22 03:58 Plt Count 384 K/mm3 (140-440) 03/14/22 03:58 Lymph % (Auto) 13.3 % (13.4-35.0) L 03/10/22 03:57 Bledsoe % (Auto) 12.5 % (0.0-7.3) H 03/10/22 03:57 Eos % (Auto) 1.4 % (0.0-4.3) 03/10/22 03:57 Baso % (Auto) 0.4 % (0.0-1.8) 03/10/22 03:57 Lymph # (Auto) 1.3 K/mm3 (1.2-5.4) 03/10/22 03:57 Bledsoe # (Auto) 1.3 K/mm3 (0.0-0.8) H 03/10/22 03:57 Eos # (Auto) 0.1 K/mm3 (0.0-0.4) 03/10/22 03:57 Baso # (Auto) 0.0 K/mm3 (0.0-0.1) 03/10/22 03:57 Add Manual Diff Complete 03/03/22 03:54 Total Counted 100 03/03/22 03:54 Seg Neutrophils % 72.4 % (40.0-70.0) H 03/10/22 03:57 Seg Neuts % (Manual) 95.0 % (40.0-70.0) H 03/03/22 03:54 Band Neutrophils % 0 % 03/03/22 03:54 Lymphocytes % (Manual) 3.0 % (13.4-35.0) L 03/03/22 03:54 Reactive Lymphs % (Man) 0 % 03/03/22 03:54 Monocytes % (Manual) 2.0 % (0.0-7.3) 03/03/22 03:54 Eosinophils % (Manual) 0 % (0.0-4.3) 03/03/22 03:54 Basophils % (Manual) 0 % (0.0-1.8) 03/03/22 03:54 Metamyelocytes % 0 % 03/03/22 03:54 Myelocytes % 0 % 03/03/22 03:54 Promyelocytes % 0 % 03/03/22 03:54 Blast Cells % 0 % 03/03/22 03:54 Nucleated RBC % Not Reportable 03/03/22 03:54 Seg Neutrophils # 7.4 K/mm3 (1.8-7.7) 03/10/22 03:57 Seg Neutrophils # Man 18.5 K/mm3 (1.8-7.7) H 03/03/22 03:54 Band Neutrophils # 0.0 K/mm3 03/03/22 03:54 Lymphocytes # (Manual) 0.6 K/mm3 (1.2-5.4) L 03/03/22 03:54 Abs React Lymphs (Man) 0.0 K/mm3 03/03/22 03:54 Monocytes # (Manual) 0.4 K/mm3 (0.0-0.8) 03/03/22 03:54 Eosinophils # (Manual) 0.0 K/mm3 (0.0-0.4) 03/03/22 03:54 Basophils # (Manual) 0.0 K/mm3 (0.0-0.1) 03/03/22 03:54 Metamyelocytes # 0.0 K/mm3 03/03/22 03:54 Myelocytes # 0.0 K/mm3 03/03/22 03:54 Promyelocytes # 0.0 K/mm3 03/03/22 03:54 Blast Cells # 0.0 K/mm3 03/03/22 03:54 WBC Morphology Not Reportable 03/03/22 03:54 Hypersegmented Neuts Not Reportable 03/03/22 03:54 Hyposegmented Neuts Not Reportable 03/03/22 03:54 Hypogranular Neuts Not Reportable 03/03/22 03:54 Smudge Cells Not Reportable 03/03/22 03:54 Toxic Granulation Not Reportable 03/03/22 03:54 Toxic Vacuolation Not Reportable 03/03/22 03:54 Dohle Bodies Not Reportable 03/03/22 03:54 Pelger-Huet Anomaly Not Reportable 03/03/22 03:54 Lakshmi Rods Not Reportable 03/03/22 03:54 Platelet Estimate Consistent w auto 03/03/22 03:54 Clumped Platelets Not Reportable 03/03/22 03:54 Plt Clumps, EDTA Not Reportable 03/03/22 03:54 Large Platelets Not Reportable 03/03/22 03:54 Giant Platelets Not Reportable 03/03/22 03:54 Platelet Satelliting Not Reportable 03/03/22 03:54 Plt Morphology Comment Not Reportable 03/03/22 03:54 RBC Morphology Not Reportable 03/03/22 03:54 Dimorphic RBCs Not Reportable 03/03/22 03:54 Polychromasia Not Reportable 03/03/22 03:54 Hypochromasia Not Reportable 03/03/22 03:54 Poikilocytosis Not Reportable 03/03/22 03:54 Anisocytosis 1+ 03/03/22 03:54 Microcytosis Not Reportable 03/03/22 03:54 Macrocytosis Not Reportable 03/03/22 03:54 Spherocytes Not Reportable 03/03/22 03:54 Pappenheimer Bodies Not Reportable 03/03/22 03:54 Sickle Cells Not Reportable 03/03/22 03:54 Target Cells Not Reportable 03/03/22 03:54 Tear Drop Cells Not Reportable 03/03/22 03:54 Ovalocytes Not Reportable 03/03/22 03:54 Helmet Cells Not Reportable 03/03/22 03:54 [place] Bodies Not Reportable 03/03/22 03:54 [place]aters Rings Not Reportable 03/03/22 03:54 [place] Cells Not Reportable 03/03/22 03:54 Bite Cells Not Reportable 03/03/22 03:54 Crenated Cell Not Reportable 03/03/22 03:54 Elliptocytes Not Reportable 03/03/22 03:54 Acanthocytes (Spur) Not Reportable 03/03/22 03:54 Rouleaux Not Reportable 03/03/22 03:54 Hemoglobin C Crystals Not Reportable 03/03/22 03:54 Schistocytes Not Reportable 03/03/22 03:54 Malaria parasites Not Reportable 03/03/22 03:54 Cash Bodies Not Reportable 03/03/22 03:54 Hem Pathologist Commnt No 03/03/22 03:54 PT 16.2 Sec. (12.2-14.9) H 03/11/22 04:02 INR 1.16 (0.87-1.13) H 03/11/22 04:02 ABG pH 7.476 pH Units (7.350-7.450) H 03/11/22 05:10 ABG pCO2 41.2 mm Hg 03/11/22 05:10 ABG pO2 84.0 mm Hg (80.0-90.0) 03/11/22 05:10 ABG HCO3 29.7 mmol/L (20.0-26.0) H 03/11/22 05:10 ABG O2 Saturation 97.1 % (95.0-99.0) 03/11/22 05:10 ABG O2 Content 12.3 (0.0-44) 03/11/22 05:10 ABG Base Excess 5.7 mmol/L (-2.0-3.0) H 03/11/22 05:10 ABG Hemoglobin 9.1 gm/dl (14.0-18.0) L 03/11/22 05:10 ABG Carboxyhemoglobin 1.7 % (0.0-5.0) 03/11/22 05:10 ABG Methemoglobin 0.5 % (0.0-1.5) 03/11/22 05:10 Oxyhemoglobin 95.0 % (95.0-99.0) 03/11/22 05:10 FiO2 30 % 03/11/22 05:10 Sodium 139 mmol/L (137-145) 03/14/22 03:58 Potassium 4.1 mmol/L (3.6-5.0) 03/14/22 03:58 Chloride 103.7 mmol/L (98-107) 03/14/22 03:58 Carbon Dioxide 29 mmol/L (22-30) 03/14/22 03:58 Anion Gap 10 mmol/L 03/14/22 03:58 BUN 15 mg/dL (9-20) 03/14/22 03:58 Creatinine 0.6 mg/dL (0.8-1.3) L 03/14/22 03:58 Estimated GFR > 60 ml/min 03/14/22 03:58 BUN/Creatinine Ratio 25 % 03/14/22 03:58 Glucose 93 mg/dL (75-100) 03/14/22 03:58 POC Glucose 100 mg/dL (70-105) 03/14/22 05:37 Lactic Acid 1.20 mmol/L (0.7-2.0) 02/18/22 21:02 Calcium 8.2 mg/dL (8.4-10.2) L 03/14/22 03:58 Phosphorus 4.10 mg/dL (2.5-4.5) 03/14/22 03:58 Magnesium 2.10 mg/dL (1.7-2.3) 03/14/22 03:58 Total Bilirubin 0.30 mg/dL (0.1-1.2) 03/10/22 03:57 AST 17 units/L (5-40) 03/10/22 03:57 ALT 18 units/L (7-56) 03/10/22 03:57 Alkaline Phosphatase 89 units/L (35-129) 03/10/22 03:57 Ammonia 14.0 umol/L (25-60) L 02/18/22 23:22 Troponin T < 0.010 ng/mL (0.00-0.029) 02/18/22 21:02 Total Protein 6.6 g/dL (6.3-8.2) 03/10/22 03:57 Albumin 1.9 g/dL (3.9-5) L 03/10/22 03:57 Albumin/Globulin Ratio 0.4 % 03/10/22 03:57 Urine Color Dark yellow (Yellow) 02/18/22 Unknown Urine Turbidity Clear (Clear) 02/18/22 Unknown Urine pH 7.0 (5.0-7.0) 02/18/22 Unknown Ur Specific [place] 1.015 (1.003-1.030) 02/18/22 Unknown Urine Protein <15 mg/dl mg/dL (Negative) 02/18/22 Unknown Urine Glucose (UA) Negative mg/dL (Negative) 02/18/22 Unknown Urine Ketones Negative mg/dL (Negative) 02/18/22 Unknown Urine Blood Trace (Negative) 02/18/22 Unknown Urine Nitrite Negative (Negative) 02/18/22 Unknown Urine Bilirubin Negative (Negative) 02/18/22 Unknown Urine Urobilinogen < 2.0 mg/dL (<2.0) 02/18/22 Unknown Ur Leukocyte Esterase Negative (Negative) 02/18/22 Unknown Urine WBC (Auto) 2.0 /HPF (0.0-6.0) 02/18/22 Unknown Urine RBC (Auto) 9.0 /HPF (0.0-6.0) 02/18/22 Unknown Urine Mucus Few /HPF 02/18/22 Unknown Urine Opiates Screen Negative 02/18/22 Unknown Urine Methadone Screen Negative 02/18/22 Unknown Ur Barbiturates Screen Negative 02/18/22 Unknown Ur Phencyclidine Scrn Negative 02/18/22 Unknown Ur Amphetamines Screen Negative 02/18/22 Unknown U Benzodiazepines Scrn Negative 02/18/22 Unknown Urine Cocaine Screen Negative 02/18/22 Unknown U Marijuana (THC) Screen Negative 02/18/22 Unknown Drugs of Abuse Note Disclamer 02/18/22 Unknown Plasma/Serum Alcohol < 0.01 % (0-0.07) 02/18/22 21:02 Summers/IV: Voiding Method Indwelling Catheter Active Medications - Current Medications Current Medications: Generic Name Dose Route Start Last Admin Trade Name Freq PRN Reason Stop Dose Admin Acetaminophen 650 mg 03/03/22 09:00 Acetaminophen 325 Mg/10.15 Ml Oral Liqd Unit Dose FEEDTUBE Q4H PRN Pain, Mild (1-3); TEMP > 100.4 Albuterol 2.5 mg 03/12/22 20:00 03/14/22 14:15 Albuterol 2.5 Mg/3 Ml Nebu IH 2.5 mg Q6HRT LAZARUS Administration Famotidine 20 mg 02/25/22 10:00 03/14/22 09:54 Famotidine 20 Mg Tab FEEDTUBE 20 mg BID LAZARUS Administration Heparin Sodium (Porcine) 5,000 unit 02/19/22 06:00 03/14/22 06:42 Heparin 5,000 Unit/1 Ml Vial SUB-Q 5,000 unit Q8HR LAZARUS Administration Hydrophilic Ointment 1 applic 02/24/22 15:05 Lip Therapy Vaseline TP Q2HR PRN Dry Lips Levetiracetam 500 mg 02/25/22 22:00 03/14/22 09:54 Levetiracetam 500 Mg/5 Ml Oral Liqd FEEDTUBE 500 mg BID LAZARUS Administration Levothyroxine Sodium 25 mcg 02/26/22 06:00 03/14/22 06:42 Levothyroxine 25 Mcg Tab FEEDTUBE 25 mcg QAM@0600 LAZARUS Administration Magnesium Hydroxide 30 ml 02/19/22 02:02 Magnesium Hydroxide (Mom) Oral Liqd Udc PO Q4H PRN Constipation Multi-Ingred Cream/Lotion/Oil/Oint 1 applic 02/24/22 15:05 Mineral Oil/Petrolatum, White Ophth Oint 3.5 Gm OU Q4HR PRN Dry Eye(s) Ondansetron HCl 4 mg 02/19/22 02:02 Ondansetron 4 Mg/2 Ml Inj IV Q8H PRN Nausea And Vomiting Pravastatin Sodium 40 mg 02/25/22 22:00 03/13/22 21:45 Pravastatin 40 Mg Tab FEEDTUBE 40 mg QHS LAZARUS Administration Senna/Docusate Sodium 1 tab 02/24/22 22:00 03/14/22 09:54 Sennosides/Docusate Sodium 8.6/50 Mg Tab FEEDTUBE 1 tab BID LAZARUS Administration Sodium Chloride 10 ml 02/19/22 10:00 03/14/22 09:54 Sodium Chloride 0.9% 10 Ml Flush Syringe IV 10 ml BID LAZARUS Administration Sodium Chloride 10 ml 02/19/22 02:02 03/03/22 14:21 Sodium Chloride 0.9% 10 Ml Flush Syringe IV 10 ml PRN PRN Administration LINE FLUSH Nutrition/Malnutrition Assess - Dietary Evaluation Nutrition/Malnutrition Findings: Nutrition Notes Start: 02/19/22 14:29 Freq: Status: Active Protocol: Document 03/07/22 14:34 IVAN (Rec: 03/07/22 14:44 IVAN [id number]) Nutrition Notes Initial or Follow up Reassessment Current Diagnosis Hypertension,Respiratory Failure,Hyperlipidemia Other Pertinent Diagnosis Asp pneu, acute encephalopathy , seizure d/o, partial blindness Current Diet TF - Vital AF 1.2 at 50ml/hr Labs/Tests Reviewed Pertinent Medications Reviewed Height 5 ft 3 in Weight 63.2 kg [place] Body Weight (kg) 56.36 BMI 24.7 Weight change and time frame Unable to obtain current wt; bed scale not working - RN aware Weight Status Appropriate Subjective/Other Information Observed TF infusing at goal rate. Pt tolerating TF and remains on vent support. Pt been intubated since 02/24/22 via ETT. Trach/PEG placement pending. Percent of energy/protein needs met: 90% energy 100% pro Burn Absent Trauma Absent #1 Nutrition Diagnosis Inadequate oral intake Diagnosis Progress(for reassessment Continues documentation) Is patient on ventilator? Yes Is Patient Ambulatory and/or Out of Bed No REE-([facility]-confined to bed) [phone] Calculation Used for Recommendations [facility] Additional Notes Pro needs 1.2-2g/k-126g/ day Fluid needs 1ml/kcal Nutrition Intervention Nutrition Support: Continue Vital AF 1.2 at 50ml/ hr with 75ml water flush q4h. Kcal 1,440 Protein (gm) 90 Carbohydrates (gm) 133 Fat (gm) 65 Fluid (mL) 973 Fiber (gm) 6 Goal #1 TF tolerance Goal #2 TF to meet at least 75% energy and pro needs Follow-Up By: 03/14/22 Additional Comments F/U: stable TF, trach/PEG placement, vent status, wt
[2022-03-14] MEDS: MIDODRINE 2.5 MG TAB PO SCH (17:56)
[2022-03-14] MEDS ORDERED: SODIUM CHLORIDE 0.9% 500 ML 500 ML IV SCH (18:00)
[2022-03-14] MEDS: PRAVASTATIN 40 MG TAB FEEDTUBE SCH (21:16)
[2022-03-15] MEDS: ALBUTEROL 2.5 MG/3 ML NEBU IH SCH ×4 (01:25→20:26)
[2022-03-15] MEDS: HEPARIN 5,000 UNIT/1 ML VIAL SUB-Q SCH ×3 (05:35→21:28)
[2022-03-15] MEDS: LEVOTHYROXINE 25 MCG TAB FEEDTUBE SCH (05:35)
[2022-03-15] MEDS ORDERED: SODIUM CHLORIDE 0.9% 500 ML 500 ML IV ONE (06:33)
[2022-03-15] MEDS ORDERED: LACTATED RINGERS 1,000 ML IV ONE (08:04)
--- NOTE | 2022-03-15 09:02 | Progress Note ---
Assessment and Plan 61 y/o male with abnormal CT of chest. 03/15/22: Day 19 of intubation. BP now is marginal more regularly. Will give an additional liter bolus of LR now. May need to increase Midodrine back to 5. Needs trach in order to be safely weaned from ventilator. Will need peg tube placement in addition to trach. Prognosis remains guarded. Continue PSV trials as tolerated. 03/14/22: Day 18 of intubation. Vitals stable and mental status is unchanged. Still in need of tracheostomy as well as peg tube placement. No guardian appointed yet. 03/13/22: Day 17 of intubation. Agree with bolus and restarting of midodrine. was stopped previously secondary to bradycardia. If patient spikes temp, will culture blood and urine and repeat CXR. Continue daily PSV trials to assess ability for vent liberation. Continues to need trach however no family/guardian to provide consent. Guarded prognosis. 03/12/22: Day 16 of intubation. Following up with hospital in regards to guardian. Continue supportive measures. Guarded prognosis. 03/11/22: hospital now attempting to find emergency guardian to have consent for trach as ethics committee cannot comment on this matter so unable to help. Until then will remain intubated orally. Failed PSV yesterday, will continue to attempt on daily basis. Unfortunate situation. Guarded prognosis. 03/10/22: Today nuñez day 14 of intubation. Given patient's mental state and increased risk of aspiration, the likelihood of conventional extubation with success is very very slim and the patient has already failed this in an extremely short period of time (less than 1 hour). I suspect that he will fail again if tried and could create more difficult reintubation as he was a difficult reintubation on his failed extubation attempt. To prevent further decline and potential complications of prolonged mechanical ventilation, will discuss with ethics and the hospital to use 2 physician consent to obtain trach and peg for this patient with hopes of liberating him from the mechanical ventil ator. he has very minimal vent requirements but as been stated several times above, he continues to aspirate and failed conventional extubation almost immediately. Will consult surgery today. Dr. Mancia is prepared to sign consent as well as myself. Hopeful surgery will be on board with this. Continue supportive care for now. Attempt daily PSV trials. 03/07/22: Daily PSV trials as tolerated. Still no one to step up as adult friend. patient has now been intubated since 02/24/22 and is approaching the time period in which prolonged mechanical ventilation could lead to significant complications that could be detrimental to health (infection, stenosis, malacia etc). Will discuss again with ethics but in regards to medical necessity, may need to consider two physician consent if no one is able to claim responsibility for this patient. He is a full code and we must work in his best interest to prevent further harm. Continue supportive measures but he is not a candidate for conventional extubation given his mental state, despite being on minimal support. He has already failed this before. 03/06/22: PSV trials daily. Will discuss with RT. Spoke with ethics. Plan in place and awaiting on news from nursing home and [facility]. Continue supportive measures. Patient has been intubated since 02/24/22 and is approaching the 2 week shadi of intubation will need to make decisions soon to avoid unnecessary complications related to prolonged intubation. 03/05/22: Will follow up with ethics today. Awaiting some guidance about consent for trach and peg. This is a medical necessity to liberate patient from mechanical ventilation. Continue supportive measures. Ok with daily PSV trials 03/04/22: Follow up with ethics later this afternoon. Spoke with RT and patient does have cuff leak, will stop steroids. Stopping midodrine as BP is stable and bradycardia likely from this. 03/03/22: Await ethics eval. CM has spoken with state as well. Daily cuff leaks. Will start to wean steroids tomorrow. Midodrine can cause bradycardia. If continues or worsens will stop. Guarded prognosis. 03/02/22: Continue supportive measures. Await ethics consult before surgery consult for trach and peg. no further need for fluid boluses. Will continue stress dose steroids but have daily air leak checks by RT. Still will need trach, will not attempt extubation again. Guarded prognosis. 03/01/22: Patient is having increased urine output. This could be the cause of new onset hypotension. Will bolus 2 more liters of LR now and reassess. If this continues may need to work up for SIADH including repeat head CT. Follow up ethics review of case. Will need trach for ventilator liberation. Overall prognosis remains guarded. 02/28/22: Will obtain CT neck, noncontrast to look for airway edema or other possible etiologies for failure. Needs ethics consult as given patient's mental state, inability to clear secretions appropriately, will need trach now that he has failed extubation. However he has no family and no POA so no one to give consent. Continue supportive measures. Guarded prognosis. 02/27/22: Continue improvement of oxygenation. Will drop PEEP down today with goal of being at 6 by in the morning. Will repeat CT scan to confirm improvement as no endobronchial lesion was seen, but also to make sure no parenchymal mass. There was no evidence of extrinsic compression during bronch. Likely extubation tomorrow post CT. 02/26/22: Repeat CXR now. Wean Vent as tolerated. Hopeful extubation soon. Mucous removed. NO ENDOBRONCHIAL LESION/MASS 02/25/22: Bronch tentatively planned for tomorrow with therapeutic scope. Awaiting GI lab to give a time. NPO after midnight. Continue high PEEP 02/24/22: WIll attempt to bronch tomorrow morning. NPO after midnight. Just received word from GI lab they are not able to do bronch tomorrow. Cancel NPO order. Continue to feed patient. Repeat ABG in AM along with CXR. 02/21/22: No new pulm recs for today. Please obtain repeat CXR likely on Thursday. If patient happens to get worse, likely not a candidate for bipap given his weak cough and mental state and inability to communicate. If worsens and requires intubation, will bronch then under emergent circumstances if no POA or family is able to be located. Continue CPT. Will discuss with RT about NT suctioning. 02/20/22: Saw speech while on the floor. Would like patient to be NPO now. Discussed with nurse on floor and with IMS. Same recs pulm way as yesterday. Would benefit from bronch if able to get consent as this is not emergent. Continue CPT and q shift NT suctioning. Reviewed admission in the past and of note, patient was recently admitted last month and had a CXR done on the 29 of January that was normal. Given this patient's medical history and the history that I obtained from the nursing staff that at the longterm he was eating solid foods, I suspect that this is aspiration, possibly of a foreign body (most likely food) with atelectasis of the right lower lobe. It is highly unlikely that a mass evolved in size in less than a months time and patient, besides age, has no real risk factors for lung carcinoma. Discussed with the nurse and unfortunately there is no identifiable person that is able to give consent. Bronchoscopy is needed in the case to evaluate to see if lung mass is there vs foreign body, but at this time not able to do. In the meanwhile will recommend the following. 1. Will order CPT with neb therapy 3x daily 2. Suggest maybe NT suctioning q shift. May use nasal trumpet, however do not leave this device in the patient 3. Aspiration precautions 4. Consider speech eval to assess swallowing. Will continue to follow. CCT 31 minutes. Subjective Date of service: 03/15/22 Principal diagnosis: f/u Acute respiratory failure Interval history: Hypotensive this am and throughout the night. Midodrine restarted yesterday. Got a bolus yesterday afternoon and one earlier this am. Mental status unchanged. Did PSV all day yesterday. Objective Vital Signs - 12hr 03/14/22 03/14/22 03/14/22 21:01 21:05 22:00 Temperature Pulse Rate 80 73 64 Pulse Rate [ Bilateral Throughout] Pulse Rate [ From Monitor] Respiratory 18 14 14 Rate Respiratory Rate [Bilateral Throughout] Blood Pressure 112/62 112/62 103/50 O2 Sat by Pulse 93 94 96 Oximetry 03/14/22 03/15/22 03/15/22 23:00 00:00 00:29 Temperature 98.1 F Pulse Rate 64 67 64 Pulse Rate [ Bilateral Throughout] Pulse Rate [ 65 From Monitor] Respiratory 14 12 Rate Respiratory Rate [Bilateral Throughout] Blood Pressure 89/46 89/46 89/46 O2 Sat by Pulse 99 98 100 Oximetry 03/15/22 03/15/22 03/15/22 01:00 01:26 02:01 Temperature Pulse Rate 80 78 Pulse Rate [ 77 Bilateral Throughout] Pulse Rate [ From Monitor] Respiratory 15 14 Rate Respiratory 14 Rate [Bilateral Throughout] Blood Pressure 96/44 83/33 O2 Sat by Pulse 95 95 Oximetry 03/15/22 03/15/22 03/15/22 03:00 04:00 04:08 Temperature 97.3 F L Pulse Rate 74 71 77 Pulse Rate [ Bilateral Throughout] Pulse Rate [ 70 From Monitor] Respiratory 14 14 Rate Respiratory Rate [Bilateral Throughout] Blood Pressure 76/30 89/40 82/33 O2 Sat by Pulse 97 99 98 Oximetry 03/15/22 03/15/22 03/15/22 05:00 06:00 07:32 Temperature Pulse Rate 73 77 75 Pulse Rate [ 77 Bilateral Throughout] Pulse Rate [ From Monitor] Respiratory 9 L 15 Rate Respiratory 14 Rate [Bilateral Throughout] Blood Pressure 87/30 87/32 85/38 O2 Sat by Pulse 96 96 99 Oximetry Constitutional: alert, other (critically ill on ventilator) Eyes: non-icteric ENT: oropharynx moist Neck: supple Effort: normal Ascultation: Bilateral: diminished breath sounds, rhonchi Cardiovascular: regular rate and rhythm (no mrg) Gastrointestinal: normoactive bowel sounds, soft, non-tender (on o2 vest in place), non-distended Integumentary: normal Extremities: no cyanosis, no edema Neurologic: other (awake) Psychiatric: other (unable to assess) CBC and BMP: 03/14/22 03:58 03/14/22 03:58 ABG, PT/INR, D-dimer: ABG ABG pH 7.476 pH Units (7.350-7.450) H 03/11/22 05:10 ABG pCO2 41.2 mm Hg 03/11/22 05:10 ABG pO2 84.0 mm Hg (80.0-90.0) 03/11/22 05:10 ABG O2 Saturation 97.1 % (95.0-99.0) 03/11/22 05:10 PT/INR, D-dimer PT 16.2 Sec. (12.2-14.9) H 03/11/22 04:02 INR 1.16 (0.87-1.13) H 03/11/22 04:02 Abnormal lab findings: Abnormal Labs 02/18/22 02/18/22 02/18/22 19:34 21:02 21:02 WBC RBC Hgb Hct MCV 101 H MCH 34 H MCHC RDW 16.1 H Lymph % (Auto) [place] % (Auto) 12.4 H Lymph # (Auto) [place] # (Auto) 1.2 H Seg Neutrophils % 73.0 H Seg Neuts % (Manual) Lymphocytes % (Manual) Seg Neutrophils # Seg Neutrophils # Man Lymphocytes # (Manual) PT 16.9 H INR 1.20 H ABG pH ABG pO2 ABG HCO3 ABG O2 Saturation ABG Base Excess ABG Hemoglobin Oxyhemoglobin Sodium Potassium Chloride Carbon Dioxide BUN Creatinine Glucose POC Glucose 116 H Calcium Phosphorus AST ALT Ammonia Albumin 02/18/22 02/18/22 02/18/22 21:02 22:45 23:22 WBC RBC Hgb Hct MCV MCH MCHC RDW Lymph % (Auto) [place] % (Auto) Lymph # (Auto) [place] # (Auto) Seg Neutrophils % Seg Neuts % (Manual) Lymphocytes % (Manual) Seg Neutrophils # Seg Neutrophils # Man Lymphocytes # (Manual) PT INR ABG pH ABG pO2 55.6 L ABG HCO3 28.4 H ABG O2 Saturation 91.5 L ABG Base Excess 3.8 H ABG Hemoglobin 13.2 L Oxyhemoglobin 89.6 L Sodium Potassium 5.1 H Chloride Carbon Dioxide BUN Creatinine Glucose 102 H POC Glucose Calcium Phosphorus AST 48 H ALT 64 H Ammonia 14.0 L Albumin 2.7 L 02/20/22 02/20/22 02/23/22 04:59 04:59 06:29 WBC 11.4 H RBC Hgb Hct MCV 103 H MCH 33 H MCHC RDW 16.5 H Lymph % (Auto) 5.5 L [place] % (Auto) 12.1 H Lymph # (Auto) 0.6 L [place] # (Auto) 1.4 H Seg Neutrophils % 81.4 H Seg Neuts % (Manual) Lymphocytes % (Manual) Seg Neutrophils # 9.2 H Seg Neutrophils # Man Lymphocytes # (Manual) PT INR ABG pH ABG pO2 ABG HCO3 ABG O2 Saturation ABG Base Excess ABG Hemoglobin Oxyhemoglobin Sodium Potassium Chloride Carbon Dioxide BUN Creatinine Glucose POC Glucose 113 H Calcium 8.2 L Phosphorus AST ALT Ammonia Albumin 02/23/22 02/23/22 02/24/22 11:22 16:10 00:02 WBC RBC Hgb Hct MCV MCH MCHC RDW Lymph % (Auto) [place] % (Auto) Lymph # (Auto) [place] # (Auto) Seg Neutrophils % Seg Neuts % (Manual) Lymphocytes % (Manual) Seg Neutrophils # Seg Neutrophils # Man Lymphocytes # (Manual) PT INR ABG pH ABG pO2 ABG HCO3 ABG O2 Saturation ABG Base Excess ABG Hemoglobin Oxyhemoglobin Sodium Potassium Chloride Carbon Dioxide BUN Creatinine Glucose POC Glucose 108 H 115 H 109 H Calcium Phosphorus AST ALT Ammonia Albumin 02/24/22 02/24/2202/24/22 11:05 11:05 13:20 WBC RBC 3.55 L Hgb Hct MCV 100 H MCH 34 H MCHC RDW 15.6 H Lymph % (Auto) [place] % (Auto) Lymph # (Auto) [place] # (Auto) Seg Neutrophils % Seg Neuts % (Manual) Lymphocytes % (Manual) Seg Neutrophils # Seg Neutrophils # Man Lymphocytes # (Manual) PT INR ABG pH ABG pO2 ABG HCO3 ABG O2 Saturation ABG Base Excess ABG Hemoglobin Oxyhemoglobin Sodium 146 H Potassium 3.2 L D Chloride 108.4 H Carbon Dioxide BUN Creatinine 0.5 L Glucose POC Glucose 111 H Calcium 7.9 L Phosphorus 2.20 L AST ALT Ammonia Albumin 02/24/22 02/24/22 02/24/22 16:30 17:03 20:25 WBC RBC Hgb Hct MCV MCH MCHC RDW Lymph % (Auto) [place] % (Auto) Lymph # (Auto) [place] # (Auto) Seg Neutrophils % Seg Neuts % (Manual) Lymphocytes % (Manual) Seg Neutrophils # Seg Neutrophils # Man Lymphocytes # (Manual) PT INR ABG pH 7.319 L ABG pO2 65.3 L ABG HCO3 31.3 H ABG O2 Saturation 92.2 L ABG Base Excess 3.8 H ABG Hemoglobin 12.0 L Oxyhemoglobin 90.3 L Sodium Potassium Chloride 107.9 H Carbon Dioxide BUN 8 L Creatinine 0.4 L Glucose POC Glucose 108 H Calcium 7.6 L Phosphorus 4.60 H D AST ALT Ammonia Albumin 02/25/22 02/25/22 02/25/22 04:12 04:12 05:05 WBC RBC 3.07 L Hgb 10.2 L Hct 31.5 L MCV 103 H MCH 33 H MCHC RDW 15.6 H Lymph % (Auto) [place] % (Auto) Lymph # (Auto) [place] # (Auto) Seg Neutrophils % Seg Neuts % (Manual) Lymphocytes % (Manual) Seg Neutrophils # Seg Neutrophils # Man Lymphocytes # (Manual) PT INR ABG pH ABG pO2 ABG HCO3 32.5 H ABG O2 Saturation ABG Base Excess 5.6 H ABG Hemoglobin 10.8 L Oxyhemoglobin 94.8 L Sodium Potassium 3.5 L Chloride 107.7 H Carbon Dioxide BUN Creatinine 0.5 L Glucose POC Glucose Calcium 7.0 L Phosphorus AST ALT Ammonia Albumin 02/25/22 02/25/22 02/26/22 12:05 18:33 00:07 WBC RBC Hgb Hct MCV MCH MCHC RDW Lymph % (Auto) [place] % (Auto) Lymph # (Auto) [place] # (Auto) Seg Neutrophils % Seg Neuts % (Manual) Lymphocytes % (Manual) Seg Neutrophils # Seg Neutrophils # Man Lymphocytes # (Manual) PT INR ABG pH ABG pO2 ABG HCO3 ABG O2 Saturation ABG Base Excess ABG Hemoglobin Oxyhemoglobin Sodium Potassium Chloride Carbon Dioxide BUN Creatinine Glucose POC Glucose 127 H 125 H 114 H Calcium Phosphorus AST ALT Ammonia Albumin 02/26/22 02/26/22 02/26/22 03:30 04:42 11:34 WBC RBC Hgb Hct MCV MCH MCHC RDW Lymph % (Auto) [place] % (Auto) Lymph # (Auto) [place] # (Auto) Seg Neutrophils % Seg Neuts % (Manual) Lymphocytes % (Manual) Seg Neutrophils # Seg Neutrophils # Man Lymphocytes # (Manual) PT INR ABG pH ABG pO2 143.2 H ABG HCO3 33.2 H ABG O2 Saturation ABG Base Excess 6.5 H ABG Hemoglobin 9.4 L Oxyhemoglobin Sodium Potassium Chloride Carbon Dioxide 32 H BUN Creatinine 0.7 L Glucose POC Glucose 114 H Calcium 8.0 L Phosphorus AST ALT Ammonia Albumin 02/26/22 02/26/22 02/27/22 18:17 23:37 04:19 WBC 13.7 H RBC 2.78 L Hgb 9.3 L Hct 28.5 L MCV 103 H MCH 33 H MCHC RDW 16.3 H Lymph % (Auto) [place] % (Auto) Lymph # (Auto) [place] # (Auto) Seg Neutrophils % Seg Neuts % (Manual) Lymphocytes % (Manual) Seg Neutrophils # Seg Neutrophils # Man Lymphocytes # (Manual) PT INR ABG pH ABG pO2 ABG HCO3 ABG O2 Saturation ABG Base Excess ABG Hemoglobin Oxyhemoglobin Sodium Potassium Chloride Carbon Dioxide BUN Creatinine Glucose POC Glucose 111 H 117 H Calcium Phosphorus AST ALT Ammonia Albumin 02/27/22 02/27/22 02/27/22 04:19 04:35 05:27 WBC RBC Hgb Hct MCV MCH MCHC RDW Lymph % (Auto) [place] % (Auto) Lymph # (Auto) [place] # (Auto) Seg Neutrophils % Seg Neuts % (Manual) Lymphocytes % (Manual) Seg Neutrophils # Seg Neutrophils # Man Lymphocytes # (Manual) PT INR ABG pH ABG pO2 96.3 H ABG HCO3 34.9 H ABG O2 Saturation ABG Base Excess 8.1 H ABG Hemoglobin Oxyhemoglobin Sodium Potassium Chloride Carbon Dioxide 31 H BUN Creatinine 0.6 L Glucose 107 H POC Glucose 133 H Calcium 7.8 L Phosphorus AST ALT Ammonia Albumin 02/27/22 02/27/22 02/28/22 11:15 23:35 03:38 WBC 13.3 H RBC 3.05 L Hgb 10.2 L Hct 30.7 L MCV 101 H MCH 33 H MCHC RDW 16.1 H Lymph % (Auto) [place] % (Auto) Lymph # (Auto) [place] # (Auto) Seg Neutrophils % Seg Neuts % (Manual) Lymphocytes % (Manual) Seg Neutrophils # Seg Neutrophils # Man Lymphocytes # (Manual) PT INR ABG pH ABG pO2 ABG HCO3 ABG O2 Saturation ABG Base Excess ABG Hemoglobin Oxyhemoglobin Sodium Potassium Chloride Carbon Dioxide BUN Creatinine Glucose POC Glucose 129 H 122 H Calcium Phosphorus AST ALT Ammonia Albumin 02/28/22 02/28/22 02/28/22 04:50 05:30 09:30 WBC RBC Hgb Hct MCV MCH MCHC RDW Lymph % (Auto) [place] % (Auto) Lymph # (Auto) [place] # (Auto) Seg Neutrophils % Seg Neuts % (Manual) Lymphocytes % (Manual) Seg Neutrophils # Seg Neutrophils # Man Lymphocytes # (Manual) PT INR ABG pH 7.451 H 7.488 H ABG pO2 77.0 L ABG HCO3 37.1 H 34.6 H ABG O2 Saturation ABG Base Excess 11.5 H 10.1 H ABG Hemoglobin 10.1 L 10.0 L Oxyhemoglobin Sodium Potassium Chloride Carbon Dioxide BUN Creatinine Glucose POC Glucose 121 H Calcium Phosphorus AST ALT Ammonia Albumin 02/28/22 02/28/22 03/01/22 11:36 23:07 04:27 WBC 12.5 H RBC 2.85 L Hgb 9.5 L Hct 28.6 L MCV 101 H MCH 33 H MCHC RDW 15.7 H Lymph % (Auto) [place] % (Auto) Lymph # (Auto) [place] # (Auto) Seg Neutrophils % Seg Neuts % (Manual) Lymphocytes % (Manual) Seg Neutrophils # Seg Neutrophils # Man Lymphocytes # (Manual) PT INR ABG pH ABG pO2 ABG HCO3 ABG O2 Saturation ABG Base Excess ABG Hemoglobin Oxyhemoglobin Sodium Potassium Chloride Carbon Dioxide BUN Creatinine Glucose POC Glucose 112 H 107 H Calcium Phosphorus AST ALT Ammonia Albumin 03/01/22 03/01/22 03/01/22 04:27 05:05 11:29 WBC RBC Hgb Hct MCV MCH MCHC RDW Lymph % (Auto) [place] % (Auto) Lymph # (Auto) [place] # (Auto) Seg Neutrophils % Seg Neuts % (Manual) Lymphocytes % (Manual) Seg Neutrophils # Seg Neutrophils # Man Lymphocytes # (Manual) PT INR ABG pH ABG pO2 ABG HCO3 ABG O2 Saturation ABG Base Excess ABG Hemoglobin Oxyhemoglobin Sodium 147 H D Potassium Chloride Carbon Dioxide 34 H BUN Creatinine 0.6 L Glucose 128 H POC Glucose 119 H 121 H Calcium 7.9 L Phosphorus AST ALT Ammonia Albumin 03/01/22 03/01/22 03/02/22 16:15 23:57 05:18 WBC RBC Hgb Hct MCV MCH MCHC RDW Lymph % (Auto) [place] % (Auto) Lymph # (Auto) [place] # (Auto) Seg Neutrophils % Seg Neuts % (Manual) Lymphocytes % (Manual) Seg Neutrophils # Seg Neutrophils # Man Lymphocytes # (Manual) PT INR ABG pH ABG pO2 110.5 H ABG HCO3 33.0 H ABG O2 Saturation ABG Base Excess 7.4 H ABG Hemoglobin 8.6 L Oxyhemoglobin Sodium Potassium Chloride Carbon Dioxide BUN Creatinine Glucose POC Glucose 134 H 140 H Calcium Phosphorus AST ALT Ammonia Albumin 03/02/22 03/02/22 03/02/22 05:53 09:04 09:04 WBC 15.0 H RBC 3.00 L Hgb 9.7 L Hct 30.7 L MCV 102 H MCH MCHC RDW 16.6 H Lymph % (Auto) [place] % (Auto) Lymph # (Auto) [place] # (Auto) Seg Neutrophils % Seg Neuts % (Manual) Lymphocytes % (Manual) Seg Neutrophils # Seg Neutrophils # Man Lymphocytes # (Manual) PT INR ABG pH ABG pO2 ABG HCO3 ABG O2 Saturation ABG Base Excess ABG Hemoglobin Oxyhemoglobin Sodium Potassium Chloride Carbon Dioxide 31 H BUN Creatinine 0.6 L Glucose 157 H POC Glucose 158 H Calcium 7.9 L Phosphorus AST ALT Ammonia Albumin 03/02/22 03/02/22 03/02/22 11:36 16:25 23:17 WBC RBC Hgb Hct MCV MCH MCHC RDW Lymph % (Auto) [place] % (Auto) Lymph # (Auto) [place] # (Auto) Seg Neutrophils % Seg Neuts % (Manual) Lymphocytes % (Manual) Seg Neutrophils # Seg Neutrophils # Man Lymphocytes # (Manual) PT INR ABG pH ABG pO2 ABG HCO3 ABG O2 Saturation ABG Base Excess ABG Hemoglobin Oxyhemoglobin Sodium Potassium Chloride Carbon Dioxide BUN Creatinine Glucose POC Glucose 160 H 132 H 157 H Calcium Phosphorus AST ALT Ammonia Albumin 03/03/22 03/03/22 03/03/22 03:54 03:54 05:27 WBC 19.5 H RBC 2.79 L Hgb 9.0 L Hct 28.6 L MCV 102 H MCH MCHC RDW 16.2 H Lymph % (Auto) [place] % (Auto) Lymph # (Auto) [place] # (Auto) Seg Neutrophils % Seg Neuts % (Manual) 95.0 H Lymphocytes % (Manual) 3.0 L Seg Neutrophils # Seg Neutrophils # Man 18.5 H Lymphocytes # (Manual) 0.6 L PT INR ABG pH ABG pO2 ABG HCO3 ABG O2 Saturation ABG Base Excess ABG Hemoglobin Oxyhemoglobin Sodium Potassium Chloride Carbon Dioxide BUN Creatinine 0.6 L Glucose 130 H POC Glucose 149 H Calcium 8.1 L Phosphorus AST ALT Ammonia Albumin 03/03/22 03/03/22 03/04/22 11:13 17:30 00:02 WBC RBC Hgb Hct MCV MCH MCHC RDW Lymph % (Auto) [place] % (Auto) Lymph # (Auto) [place] # (Auto) Seg Neutrophils % Seg Neuts % (Manual) Lymphocytes % (Manual) Seg Neutrophils # Seg Neutrophils # Man Lymphocytes # (Manual) PT INR ABG pH ABG pO2 ABG HCO3 ABG O2 Saturation ABG Base Excess ABG Hemoglobin Oxyhemoglobin Sodium Potassium Chloride Carbon Dioxide BUN Creatinine Glucose POC Glucose 139 H 138 H 157 H Calcium Phosphorus AST ALT Ammonia Albumin 03/04/22 03/04/22 03/04/22 05:32 05:32 05:48 WBC 16.1 H RBC 2.81 L Hgb 9.3 L Hct 28.8 L MCV 102 H MCH 33 H MCHC RDW 16.7 H Lymph % (Auto) [place] % (Auto) Lymph # (Auto) [place] # (Auto) Seg Neutrophils % Seg Neuts % (Manual) Lymphocytes % (Manual) Seg Neutrophils # Seg Neutrophils # Man Lymphocytes # (Manual) PT INR ABG pH ABG pO2 ABG HCO3 ABG O2 Saturation ABG Base Excess ABG Hemoglobin Oxyhemoglobin Sodium Potassium Chloride Carbon Dioxide BUN Creatinine 0.7 L Glucose 135 H POC Glucose 145 H Calcium 8.3 L Phosphorus AST ALT Ammonia Albumin 03/04/22 03/04/22 03/05/22 11:34 16:29 00:28 WBC RBC Hgb Hct MCV MCH MCHC RDW Lymph % (Auto) [place] % (Auto) Lymph # (Auto) [place] # (Auto) Seg Neutrophils % Seg Neuts % (Manual) Lymphocytes % (Manual) Seg Neutrophils # Seg Neutrophils # Man Lymphocytes # (Manual) PT INR ABG pH ABG pO2 ABG HCO3 ABG O2 Saturation ABG Base Excess ABG Hemoglobin Oxyhemoglobin Sodium Potassium Chloride Carbon Dioxide BUN Creatinine Glucose POC Glucose 148 H 140 H 116 H Calcium Phosphorus AST ALT Ammonia Albumin 03/05/22 03/05/22 03/05/22 06:29 11:30 17:38 WBC RBC Hgb Hct MCV MCH MCHC RDW Lymph % (Auto) [place] % (Auto) Lymph # (Auto) [place] # (Auto) Seg Neutrophils % Seg Neuts % (Manual) Lymphocytes % (Manual) Seg Neutrophils # Seg Neutrophils # Man Lymphocytes # (Manual) PT INR ABG pH ABG pO2 ABG HCO3 ABG O2 Saturation ABG Base Excess ABG Hemoglobin Oxyhemoglobin Sodium Potassium Chloride Carbon Dioxide BUN Creatinine Glucose POC Glucose 114 H 114 H 117 H Calcium Phosphorus AST ALT Ammonia Albumin 03/06/22 03/06/22 03/06/22 04:17 04:17 06:06 WBC 13.4 H RBC 2.85 L Hgb 9.4 L Hct 29.0 L MCV 102 H MCH 33 H MCHC RDW 16.4 H Lymph % (Auto) [place] % (Auto) Lymph # (Auto) [place] # (Auto) Seg Neutrophils % Seg Neuts % (Manual) Lymphocytes % (Manual) Seg Neutrophils # Seg Neutrophils # Man Lymphocytes # (Manual) PT INR ABG pH ABG pO2 ABG HCO3 ABG O2 Saturation ABG Base Excess ABG Hemoglobin Oxyhemoglobin Sodium Potassium 3.5 L Chloride Carbon Dioxide 31 H BUN Creatinine 0.6 L Glucose 101 H POC Glucose 106 H Calcium 7.7 L Phosphorus 2.00 L AST ALT Ammonia Albumin 03/06/22 03/06/22 03/07/22 18:04 23:50 05:14 WBC RBC Hgb Hct MCV MCH MCHC RDW Lymph % (Auto) [place] % (Auto) Lymph # (Auto) [place] # (Auto) Seg Neutrophils % Seg Neuts % (Manual) Lymphocytes % (Manual) Seg Neutrophils # Seg Neutrophils # Man Lymphocytes # (Manual) PT INR ABG pH ABG pO2 ABG HCO3 ABG O2 Saturation ABG Base Excess ABG Hemoglobin Oxyhemoglobin Sodium Potassium Chloride Carbon Dioxide BUN Creatinine Glucose POC Glucose 108 H 115 H 116 H Calcium Phosphorus AST ALT Ammonia Albumin 03/07/22 03/07/22 03/08/22 11:42 18:13 04:34 WBC RBC 2.86 L Hgb 9.2 L Hct 29.3 L MCV 103 H MCH MCHC 31 L RDW 16.9 H Lymph % (Auto) [place] % (Auto) Lymph # (Auto) [place] # (Auto) Seg Neutrophils % Seg Neuts % (Manual) Lymphocytes % (Manual) Seg Neutrophils # Seg Neutrophils # Man Lymphocytes # (Manual) PT INR ABG pH ABG pO2 ABG HCO3 ABG O2 Saturation ABG Base Excess ABG Hemoglobin Oxyhemoglobin Sodium Potassium Chloride Carbon Dioxide BUN Creatinine Glucose POC Glucose 123 H 109 H Calcium Phosphorus AST ALT Ammonia Albumin 03/08/22 03/08/22 03/08/22 04:34 11:29 16:34 WBC RBC Hgb Hct MCV MCH MCHC RDW Lymph % (Auto) [place] % (Auto) Lymph # (Auto) [place] # (Auto) Seg Neutrophils % Seg Neuts % (Manual) Lymphocytes % (Manual) Seg Neutrophils # Seg Neutrophils # Man Lymphocytes # (Manual) PT INR ABG pH ABG pO2 ABG HCO3 ABG O2 Saturation ABG Base Excess ABG Hemoglobin Oxyhemoglobin Sodium Potassium Chloride Carbon Dioxide 33 H BUN Creatinine 0.5 L Glucose 109 H POC Glucose 117 H 109 H Calcium 7.6 L Phosphorus AST ALT Ammonia Albumin 03/08/22 03/09/22 03/10/22 23:56 11:15 03:57 WBC RBC 2.99 L Hgb 9.9 L Hct 30.3 L MCV 102 H MCH 33 H MCHC RDW 16.8 H Lymph % (Auto) 13.3 L [place] % (Auto) 12.5 H Lymph # (Auto) [place] # (Auto) 1.3 H Seg Neutrophils % 72.4 H Seg Neuts % (Manual) Lymphocytes % (Manual) Seg Neutrophils # Seg Neutrophils # Man Lymphocytes # (Manual) PT INR ABG pH ABG pO2 ABG HCO3 ABG O2 Saturation ABG Base Excess ABG Hemoglobin Oxyhemoglobin Sodium Potassium Chloride Carbon Dioxide BUN Creatinine Glucose POC Glucose 106 H 110 H Calcium Phosphorus AST ALT Ammonia Albumin 03/10/22 03/10/22 03/10/22 03:57 04:50 16:04 WBC RBC Hgb Hct MCV MCH MCHC RDW Lymph % (Auto) [place] % (Auto) Lymph # (Auto) [place] # (Auto) Seg Neutrophils % Seg Neuts % (Manual) Lymphocytes % (Manual) Seg Neutrophils # Seg Neutrophils # Man Lymphocytes # (Manual) PT INR ABG pH 7.465 H ABG pO2 ABG HCO3 31.9 H ABG O2 Saturation ABG Base Excess 7.3 H ABG Hemoglobin 11.0 L Oxyhemoglobin Sodium Potassium 3.4 L Chloride Carbon Dioxide BUN Creatinine 0.6 L Glucose POC Glucose 115 H Calcium 8.1 L Phosphorus AST ALT Ammonia Albumin 1.9 L 03/11/22 03/11/22 03/11/22 04:02 04:02 04:02 WBC 12.0 H RBC 2.81 L Hgb 9.2 L Hct 29.1 L MCV 103 H MCH 33 H MCHC RDW 17.5 H Lymph % (Auto) [place] % (Auto) Lymph # (Auto) [place] # (Auto) Seg Neutrophils % Seg Neuts % (Manual) Lymphocytes % (Manual) Seg Neutrophils # Seg Neutrophils # Man Lymphocytes # (Manual) PT 16.2 H INR 1.16 H ABG pH ABG pO2 ABG HCO3 ABG O2 Saturation ABG Base Excess ABG Hemoglobin Oxyhemoglobin Sodium Potassium Chloride Carbon Dioxide BUN Creatinine 0.5 L Glucose 104 H POC Glucose Calcium 7.9 L Phosphorus AST ALT Ammonia Albumin 03/11/22 03/11/22 03/11/22 05:10 11:07 16:32 WBC RBC Hgb Hct MCV MCH MCHC RDW Lymph % (Auto) [place] % (Auto) Lymph # (Auto) [place] # (Auto) Seg Neutrophils % Seg Neuts % (Manual) Lymphocytes % (Manual) Seg Neutrophils # Seg Neutrophils # Man Lymphocytes # (Manual) PT INR ABG pH 7.476 H ABG pO2 ABG HCO3 29.7 H ABG O2 Saturation ABG Base Excess 5.7 H ABG Hemoglobin 9.1 L Oxyhemoglobin Sodium Potassium Chloride Carbon Dioxide BUN Creatinine Glucose POC Glucose 108 H 121 H Calcium Phosphorus AST ALT Ammonia Albumin 03/12/22 03/13/22 03/13/22 05:51 06:08 12:02 WBC RBC 2.73 L Hgb 9.0 L Hct 27.5 L MCV 101 H MCH 33 H MCHC RDW 17.2 H Lymph % (Auto) [place] % (Auto) Lymph # (Auto) [place] # (Auto) Seg Neutrophils % Seg Neuts % (Manual) Lymphocytes % (Manual) Seg Neutrophils # Seg Neutrophils # Man Lymphocytes # (Manual) PT INR ABG pH ABG pO2 ABG HCO3 ABG O2 Saturation ABG Base Excess ABG Hemoglobin Oxyhemoglobin Sodium Potassium Chloride Carbon Dioxide BUN Creatinine Glucose POC Glucose 116 H 111 H Calcium Phosphorus AST ALT Ammonia Albumin 03/13/22 03/13/22 03/14/22 12:48 18:17 03:58 WBC RBC 2.97 L Hgb 9.7 L Hct 30.0 L MCV 101 H MCH 33 H MCHC RDW 16.7 H Lymph % (Auto) [place] % (Auto) Lymph # (Auto) [place] # (Auto) Seg Neutrophils % Seg Neuts % (Manual) Lymphocytes % (Manual) Seg Neutrophils # Seg Neutrophils # Man Lymphocytes # (Manual) PT INR ABG pH ABG pO2 ABG HCO3 ABG O2 Saturation ABG Base Excess ABG Hemoglobin Oxyhemoglobin Sodium Potassium Chloride Carbon Dioxide BUN Creatinine Glucose POC Glucose 125 H 114 H Calcium Phosphorus AST ALT Ammonia Albumin 03/14/22 03/14/22 03/14/22 03:58 13:01 16:41 WBC RBC Hgb Hct MCV MCH MCHC RDW Lymph % (Auto) [place] % (Auto) Lymph # (Auto) [place] # (Auto) Seg Neutrophils % Seg Neuts % (Manual) Lymphocytes % (Manual) Seg Neutrophils # Seg Neutrophils # Man Lymphocytes # (Manual) PT INR ABG pH ABG pO2 ABG HCO3 ABG O2 Saturation ABG Base Excess ABG Hemoglobin Oxyhemoglobin Sodium Potassium Chloride Carbon Dioxide BUN Creatinine 0.6 L Glucose POC Glucose 118 H 109 H Calcium 8.2 L Phosphorus AST ALT Ammonia Albumin
[2022-03-15] MEDS: FAMOTIDINE 20 MG TAB FEEDTUBE SCH ×2 (09:36→21:27)
[2022-03-15] MEDS: levETIRAcetam 500 MG/5 ML ORAL LIQD FEEDTUBE SCH ×2 (09:37→21:27)
[2022-03-15] MEDS: SENNOSIDES/DOCUSATE SODIUM 8.6/50 MG TAB FEEDTUBE SCH ×2 (09:37→21:27)
[2022-03-15] MEDS: MIDODRINE 2.5 MG TAB PO SCH ×3 (09:37→18:31)
--- NOTE | 2022-03-15 09:39 | Progress Note ---
<CODYCARSON ZiaRadha - Last Filed: 03/15/22 09:34> Assessment and Plan Assessment and plan: This is a 51-year-old male with HTN, seizure disorder, Down syndrome, HLD, partial blindness admitted with aspiration pneumonia, probable bronchogenic carcinoma, acute hypoxic respiratory failure and acute encephalopathy Neuro: Acute encephalopathy, h/o seizure disorder, Down syndrome, partial blindness -fent IVP -Reorientation as needed -Maintain sleep-wake cycle -aspiration/seizure precautions -As needed analgesia -CT head showed no acute abnormality -Continue Keppra Cardiac: h/o HTN, HLD -Cardiology consulted, appreciate recommendations -Blood pressure monitoring per protocol -Midodrine stopped initially due to bradycardia now stopped due to SBP 120-140s -Restarted on midodrine Respiratory: Acute hypoxic respiratory failure, ruled out bronchogenic carcinoma -CCM consulted, appreciate recommendations -Intubated on 02/24 with a 8.0 at 23 at the lips but extubated 02/28 -reintubated 02/28 with 8.0 OETT -Vent settings: AC rate 14, TV 360, PEEP 6, FO2 30% -See RT notes for titration -VAP bundle -SPO2 monitoring per protocol -02/18 CTA chest showed no evidence of pulmonary embolism, suspected bronchogenic carcinoma with associated obstruction of the right lower lobe proximal bronchus segment, 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 adenopathy and suspected to left lower lobe metastatic nodule -02/26 Bronch->mucous, no lesion noted -02/27 CT chest showed right mainstem bronchus patent with small amount of interval bronchial fluid which may be mucus (this may account for the appearance of the prior CTA chest fluid-filled airway rather than entering bronchial lesion), previously seen complete left lower lobe since related to bronchial occlusion has significantly improved, there is persistent compressive atelectasis in the right lower lung secondary to the pleural effusion, bilateral pleural effusions, right lung pneumonia -CT neck showed no acute changes -s/p steroids GI: Moderate protein calorie malnutrition -24 hours -1400 mL -PPI -NTR consulted for tube feedings -BR: Senokot S : NAD -Monitor intake and output -Renally dose medications -Avoid nephrotoxic medications -Trend BMP ID: Aspiration PNA (resolved), sacral wound -WC consulted -Dressing changes per nursing -S/p Rocephin for 5 days (02/19-02/24) -Monitor WBC and temperature curve Endo: NAD -Avoid hypoglycemia -Accu-Cheks every 6 -Avoid hypoglycemia Heme: NAD -Trend CBC -Transfuse hemoglobin less than 7 -SCDs to BLE while in bed The high probability of a clinically significant, sudden or life threatening deterioration of the [resp] system(s) required my full and direct attention, intervention and personal management. The aggregate critical care time was [60] minutes. This time is in addition to time spent performing reported procedures but includes the following: [x] Data Review and interpretation [x] Patient assessment and monitoring of vital signs [x] Documentation [x] Medication orders and management Disposition Plan: icu Total Time Spent with Patient (Minutes): 60 History Interval history: This is a 51-year-old male with HTN, seizure disorder, Down syndrome, HLD, and partial blindness was a resident [facility] who presented to emergency department on 02/19 for evaluation of change in mental status. Of note patient wa s recently discharged a few weeks ago for a seizure disorder and UTI. Upon arrival to the emergency department patient was noted to be hypoxic with SPO2 in the 80s on a nonrebreather with difficulty breathing. Work-up in the emergency department revealed CXR which showed elevation of the right hemidiaphragm, right lower lung atelectasis and effusion with mild increased pulmonary vascularity but no pneumothorax and CT of the head did not show any acute abnormality. 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 Patient was admitted to the hospitalist service to the floor. Hospital course to date: 02/19/2022. Consult pulmonary for further evaluation and possible bronchoscopy. I suspect patient has component of aspiration pneumonia as well. We will obtain a speech therapy evaluation for swallowing and start empiric antibiotics. Continue O2 supplementation to maintain sats greater than 92%. 02/20/2022. Pulmonary feels that the abnormality seen on CT scan is highly unlikely for a mass given negative chest x-ray 1 month ago and no risk factors. Etiology is likely secondary to aspiration from possibly a foreign body most likely food with atelectasis of the right lower lobe. Bronchoscopy is needed in the case to evaluate to see if lung mass is there vs foreign body, but at this time not able to do because no identifiable person that is able to give consent. Continue aspiration precautions and continue speech therapy evaluation for swallowing. Keep n.p.o. for now 02/21/2022. Patient remains NPO. Consider DHT placement. Follow-up with speech therapy evaluation. Pulmonology to consider bronchoscopy if able to obtain consent. Continue IV antibiotics for aspiration pneumonia 02/22/2022. Patient remains NPO. Consider DHT placement. Follow-up with speech therapy evaluation. Pulmonology to consider bronchoscopy if able to obtain consent. Continue IV antibiotics for aspiration pneumonia 02/23/2022. DHT placed yesterday. TF initiated for nutritional support. Patient currently with strict NPO. Aspiration precautions. Pulmonology to consider bronchoscopy if able to obtain consent. Continue IV antibiotics for aspiration pneumonia 02/24: Patient was transferred to the ICU for further monitoring. This morning patient remained on high flow nasal cannula on 40 L/100% and despite repeated nasotracheal suctioning patient SPO2 remained in the 80s. Patient was placed on nonrebreather and SPO2 increased to upper 80s. Patient was subsequently intubated by anesthesia. Started on sedation. 02/25: Patient remains sedated on fentanyl, potassium and magnesium repleted. IV fluids and amlodipine discontinued. Possible bronchoscopy tomorrow. 02/26: Patient had a bronchoscopy today which showed mucus and no endobronchial lesions or masses. FiO2 was increased to 100 during and postprocedure weaning as tolerated. Repeat CXR is much improved after bronc. Given 1 L LR bolus due to hypotension. No acute events reported overnight. 02/27: Decreased PEEP, will repeat CT of chest. no acute changes overnight. 02/28: Patient was extubated today however had to be be intubated shortly after. Patient ETT looked mispositioned on x-ray and Dr. Alonzo did do a bedside bronc. Patient was briefly hypotensive and on Levophed postintubation however Levophed was quickly titrated off and patient did not require central line. No acute events reported overnight. Will obtain CT neck d/t difficulty intubating. Ethic committee consulted. 03/01: Overnight patient was hypotensive and started on IVF. Patient started on steroids as no air leak noted and hypotension and given 2 L LR 03/02: Overnight patient received bolus per RN report, no orders seen. Continue supportive care. 03/04: MAIDA overnight. Remains stable on the vent. Awaiting on desicion from ethics community for possible trach and PEG. Continue current supportive measures 03/05: MAIDA overnight. Awaiting on desicion from [facility] for possible trach and PEG. Midodrine held yesterday, HR improved. Continue current supportive measures. Daily PSV trial as tolerated per CCM 03/06: Remains stable on the vent. Continue current supportive measures, daily PSV trial per CCM. Awaiting on desicion for possible trach and PEG. 03/07: MAIDA overnight, remains stable. Continue daily PSV trial as tolerated. Awaiting on desicion for possible trach and PEG. 03/08: Patient failed PSV trial this am due to tachycardia and increase RR. Continue supportive measures and daily PSV trial as tolerated. Possible discussion with ethics and [facility] on Thursday in regards to medical necessity, may need to consider two physician consent if no one is able to claim responsibility for this patient. 03/09: MAIDA overnight. Continue current supportive measures and daily PSV trail as tolerated. Awaiting on decision for possible trach and PEG, discussion with Ethics possibly tomorrow per [facility]. 03/10: no acute events overnight, PSV today. replete potassium. 03/11: No acute events reported overnight, patient failed PSV yesterday and will repeat today. Hospital to start guardianship process. 03/12: No acute events overnight. PSV today 03/13: Patient given 500ml normal saline and started on midodrine for hypotension. No acute events reported overnight. Failed pressure support again this morning. 03/14: No acute events reported overnight, patient blood pressure seems better therefore midodrine discontinued. RT placed on CPAP need lasted for couple hours. Will remove summers 03/15: Midodrine was restarted yesterday evening for hypotension, Summers catheter not removed due to sacral ulcer and history of retention. Unable to crush Flomax and patient will not tolerate doxazosin given hypotension. Given LR bolus this morning. If blood pressure continues to be borderline after bolus, we will adjust management as needed. CPAP as tolerated Hospitalist Physical - Constitutional Vitals: Temp Pulse Resp BP Pulse Ox 97.3 F L 77 14 85/38 99 03/15/22 04:00 03/15/22 07:32 03/15/22 07:32 03/15/22 07:32 03/15/22 07:32 General appearance: Present: no acute distress, well-nourished - EENT Eyes: Present: PERRL ENT: poor dentition - Neck Neck: Present: normal ROM - Respiratory Respiratory effort: normal Respiratory: bilateral: rhonchi - Cardiovascular Rhythm: regular Heart Sounds: Present: S1 & S2. Absent: systolic murmur, diastolic murmur - Extremities Extremities: no ischemia, pulses intact, pulses symmetrical, No edema, normal temperature, normal color Peripheral Pulses: within normal limits - Abdominal General gastrointestinal: soft, non-tender, non-distended, normal bowel sounds - Integumentary Integumentary: Present: warm, dry - Neurologic Neurologic: other (nonverbal, PERRL, intermitantly follows commands) - Allied Health Allied health notes reviewed: nursing, RT HEART Score - HEART Score Troponin: Troponin T < 0.010 ng/mL (0.00-0.029) 02/18/22 21:02 Results - Labs CBC & Chem 7: 03/14/22 03:58 03/14/22 03:58 Labs: Laboratory Last Values WBC 8.5 K/mm3 (4.5-11.0) 03/14/22 03:58 RBC 2.97 M/mm3 (3.65-5.03) L 03/14/22 03:58 Hgb 9.7 gm/dl (11.8-15.2) L 03/14/22 03:58 Hct 30.0 % (35.5-45.6) L 03/14/22 03:58 MCV 101 fl (84-94) H 03/14/22 03:58 MCH 33 pg (28-32) H 03/14/22 03:58 MCHC 33 % (32-34) 03/14/22 03:58 RDW 16.7 % (13.2-15.2) H 03/14/22 03:58 Plt Count 384 K/mm3 (140-440) 03/14/22 03:58 Lymph % (Auto) 13.3 % (13.4-35.0) L 03/10/22 03:57 Graham % (Auto) 12.5 % (0.0-7.3) H 03/10/22 03:57 Eos % (Auto) 1.4 % (0.0-4.3) 03/10/22 03:57 Baso % (Auto) 0.4 % (0.0-1.8) 03/10/22 03:57 Lymph # (Auto) 1.3 K/mm3 (1.2-5.4) 03/10/22 03:57 Graham # (Auto) 1.3 K/mm3 (0.0-0.8) H 03/10/22 03:57 Eos # (Auto) 0.1 K/mm3 (0.0-0.4) 03/10/22 03:57 Baso # (Auto) 0.0 K/mm3 (0.0-0.1) 03/10/22 03:57 Add Manual Diff Complete 03/03/22 03:54 Total Counted 100 03/03/22 03:54 Seg Neutrophils % 72.4 % (40.0-70.0) H 03/10/22 03:57 Seg Neuts % (Manual) 95.0 % (40.0-70.0) H 03/03/22 03:54 Band Neutrophils % 0 % 03/03/22 03:54 Lymphocytes % (Manual) 3.0 % (13.4-35.0) L 03/03/22 03:54 Reactive Lymphs % (Man) 0 % 03/03/22 03:54 Monocytes % (Manual) 2.0 % (0.0-7.3) 03/03/22 03:54 Eosinophils % (Manual) 0 % (0.0-4.3) 03/03/22 03:54 Basophils % (Manual) 0 % (0.0-1.8) 03/03/22 03:54 Metamyelocytes % 0 % 03/03/22 03:54 Myelocytes % 0 % 03/03/22 03:54 Promyelocytes % 0 % 03/03/22 03:54 Blast Cells % 0 % 03/03/22 03:54 Nucleated RBC % Not Reportable 03/03/22 03:54 Seg Neutrophils # 7.4 K/mm3 (1.8-7.7) 03/10/22 03:57 Seg Neutrophils # Man 18.5 K/mm3 (1.8-7.7) H 03/03/22 03:54 Band Neutrophils # 0.0 K/mm3 03/03/22 03:54 Lymphocytes # (Manual) 0.6 K/mm3 (1.2-5.4) L 03/03/22 03:54 Abs React Lymphs (Man) 0.0 K/mm3 03/03/22 03:54 Monocytes # (Manual) 0.4 K/mm3 (0.0-0.8) 03/03/22 03:54 Eosinophils # (Manual) 0.0 K/mm3 (0.0-0.4) 03/03/22 03:54 Basophils # (Manual) 0.0 K/mm3 (0.0-0.1) 03/03/22 03:54 Metamyelocytes # 0.0 K/mm3 03/03/22 03:54 Myelocytes # 0.0 K/mm3 03/03/22 03:54 Promyelocytes # 0.0 K/mm3 03/03/22 03:54 Blast Cells # 0.0 K/mm3 03/03/22 03:54 WBC Morphology Not Reportable 03/03/22 03:54 Hypersegmented Neuts Not Reportable 03/03/22 03:54 Hyposegmented Neuts Not Reportable 03/03/22 03:54 Hypogranular Neuts Not Reportable 03/03/22 03:54 Smudge Cells Not Reportable 03/03/22 03:54 Toxic Granulation Not Reportable 03/03/22 03:54 Toxic Vacuolation Not Reportable 03/03/22 03:54 Dohle Bodies Not Reportable 03/03/22 03:54 Pelger-Huet Anomaly Not Reportable 03/03/22 03:54 Lakshmi Rods Not Reportable 03/03/22 03:54 Platelet Estimate Consistent w auto 03/03/22 03:54 Clumped Platelets Not Reportable 03/03/22 03:54 Plt Clumps, EDTA Not Reportable 03/03/22 03:54 Large Platelets Not Reportable 03/03/22 03:54 Giant Platelets Not Reportable 03/03/22 03:54 Platelet Satelliting Not Reportable 03/03/22 03:54 Plt Morphology Comment Not Reportable 03/03/22 03:54 RBC Morphology Not Reportable 03/03/22 03:54 Dimorphic RBCs Not Reportable 03/03/22 03:54 Polychromasia Not Reportable 03/03/22 03:54 Hypochromasia Not Reportable 03/03/22 03:54 Poikilocytosis Not Reportable 03/03/22 03:54 Anisocytosis 1+ 08/15/22 03:54 Microcytosis Not Reportable 03/03/22 03:54 Macrocytosis Not Reportable 03/03/22 03:54 Spherocytes Not Reportable 03/03/22 03:54 Pappenheimer Bodies Not Reportable 03/03/22 03:54 Sickle Cells Not Reportable 03/03/22 03:54 Target Cells Not Reportable 03/03/22 03:54 Tear Drop Cells Not Reportable 03/03/22 03:54 Ovalocytes Not Reportable 03/03/22 03:54 Helmet Cells Not Reportable 03/03/22 03:54 [place] Bodies Not Reportable 03/03/22 03:54 [place] Rings Not Reportable 03/03/22 03:54 [place] Cells Not Reportable 03/03/22 03:54 Bite Cells Not Reportable 03/03/22 03:54 Crenated Cell Not Reportable 03/03/22 03:54 Elliptocytes Not Reportable 03/03/22 03:54 Acanthocytes (Spur) Not Reportable 03/03/22 03:54 Rouleaux Not Reportable 03/03/22 03:54 Hemoglobin C Crystals Not Reportable 03/03/22 03:54 Schistocytes Not Reportable 03/03/22 03:54 Malaria parasites Not Reportable 03/03/22 03:54 Cash Bodies Not Reportable 03/03/22 03:54 Hem Pathologist Commnt No 03/03/22 03:54 PT 16.2 Sec. (12.2-14.9) H 03/11/22 04:02 INR 1.16 (0.87-1.13) H 03/11/22 04:02 ABG pH 7.476 pH Units (7.350-7.450) H 03/11/22 05:10 ABG pCO2 41.2 mm Hg 03/11/22 05:10 ABG pO2 84.0 mm Hg (80.0-90.0) 03/11/22 05:10 ABG HCO3 29.7 mmol/L (20.0-26.0) H 03/11/22 05:10 ABG O2 Saturation 97.1 % (95.0-99.0) 03/11/22 05:10 ABG O2 Content 12.3 (0.0-44) 03/11/22 05:10 ABG Base Excess 5.7 mmol/L (-2.0-3.0) H 03/11/22 05:10 ABG Hemoglobin 9.1 gm/dl (14.0-18.0) L 03/11/22 05:10 ABG Carboxyhemoglobin 1.7 % (0.0-5.0) 03/11/22 05:10 ABG Methemoglobin 0.5 % (0.0-1.5) 03/11/22 05:10 Oxyhemoglobin 95.0 % (95.0-99.0) 03/11/22 05:10 FiO2 30 % 03/11/22 05:10 Sodium 139 mmol/L (137-145) 03/14/22 03:58 Potassium 4.1 mmol/L (3.6-5.0) 03/14/22 03:58 Chloride 103.7 mmol/L (98-107) 03/14/22 03:58 Carbon Dioxide 29 mmol/L (22-30) 03/14/22 03:58 Anion Gap 10 mmol/L 03/14/22 03:58 BUN 15 mg/dL (9-20) 03/14/22 03:58 Creatinine 0.6 mg/dL (0.8-1.3) L 03/14/22 03:58 Estimated GFR > 60 ml/min 03/14/22 03:58 BUN/Creatinine Ratio 25 % 03/14/22 03:58 Glucose 93 mg/dL (75-100) 03/14/22 03:58 POC Glucose 96 mg/dL (70-105) 03/15/22 05:31 Lactic Acid 1.20 mmol/L (0.7-2.0) 02/18/22 21:02 Calcium 8.2 mg/dL (8.4-10.2) L 03/14/22 03:58 Phosphorus 4.10 mg/dL (2.5-4.5) 03/14/22 03:58 Magnesium 2.10 mg/dL (1.7-2.3) 03/14/22 03:58 Total Bilirubin 0.30 mg/dL (0.1-1.2) 03/10/22 03:57 AST 17 units/L (5-40) 03/10/22 03:57 ALT 18 units/L (7-56) 03/10/22 03:57 Alkaline Phosphatase 89 units/L (35-129) 03/10/22 03:57 Ammonia 14.0 umol/L (25-60) L 02/18/22 23:22 Troponin T < 0.010 ng/mL (0.00-0.029) 02/18/22 21:02 Total Protein 6.6 g/dL (6.3-8.2) 03/10/22 03:57 Albumin 1.9 g/dL (3.9-5) L 03/10/22 03:57 Albumin/Globulin Ratio 0.4 % 03/10/22 03:57 Urine Color Dark yellow (Yellow) 02/18/22 Unknown Urine Turbidity Clear (Clear) 02/18/22 Unknown Urine pH 7.0 (5.0-7.0) 02/18/22 Unknown Ur Specific [place] 1.015 (1.003-1.030) 02/18/22 Unknown Urine Protein <15 mg/dl mg/dL (Negative) 02/18/22 Unknown Urine Glucose (UA) Negative mg/dL (Negative) 02/18/22 Unknown Urine Ketones Negative mg/dL (Negative) 02/18/22 Unknown Urine Blood Trace (Negative) 02/18/22 Unknown Urine Nitrite Negative (Negative) 02/18/22 Unknown Urine Bilirubin Negative (Negative) 02/18/22 Unknown Urine Urobilinogen < 2.0 mg/dL (<2.0) 02/18/22 Unknown Ur Leukocyte Esterase Negative (Negative) 02/18/22 Unknown Urine WBC (Auto) 2.0 /HPF (0.0-6.0) 02/18/22 Unknown Urine RBC (Auto) 9.0 /HPF (0.0-6.0) 02/18/22 Unknown Urine Mucus Few /HPF 02/18/22 Unknown Urine Opiates Screen Negative 02/18/22 Unknown Urine Methadone Screen Negative 02/18/22 Unknown Ur Barbiturates Screen Negative 02/18/22 Unknown Ur Phencyclidine Scrn Negative 02/18/22 Unknown Ur Amphetamines Screen Negative 02/18/22 Unknown U Benzodiazepines Scrn Negative 02/18/22 Unknown Urine Cocaine Screen Negative 02/18/22 Unknown U Marijuana (THC) Screen Negative 02/18/22 Unknown Drugs of Abuse Note Disclamer 02/18/22 Unknown Plasma/Serum Alcohol < 0.01 % (0-0.07) 02/18/22 21:02 Summers/IV: Voiding Method Indwelling Catheter Active Medications - Current Medications Current Medications: Generic Name Dose Route Start Last Admin Trade Name Freq PRN Reason Stop Dose Admin Acetaminophen 650 mg 03/03/22 09:00 Acetaminophen 325 Mg/10.15 Ml Oral Liqd Unit Dose FEEDTUBE Q4H PRN Pain, Mild (1-3); TEMP > 100.4 Albuterol 2.5 mg 03/12/22 20:00 03/15/22 07:46 Albuterol 2.5 Mg/3 Ml Nebu IH 2.5 mg Q6HRT LAZARUS Administration Famotidine 20 mg 02/25/22 10:00 03/14/22 21:16 Famotidine 20 Mg Tab FEEDTUBE 20 mg BID LAZARUS Administration Heparin Sodium (Porcine) 5,000 unit 02/19/22 06:00 03/15/22 05:35 Heparin 5,000 Unit/1 Ml Vial SUB-Q 5,000 unit Q8HR LAZARUS Administration Hydrophilic Ointment 1 applic 02/24/22 15:05 Lip Therapy Vaseline TP Q2HR PRN Dry Lips Levetiracetam 500 mg 02/25/22 22:00 03/14/22 21:16 Levetiracetam 500 Mg/5 Ml Oral Liqd FEEDTUBE 500 mg BID LAZARUS Administration Levothyroxine Sodium 25 mcg 02/26/22 06:00 03/15/22 05:35 Levothyroxine 25 Mcg Tab FEEDTUBE 25 mcg QAM@0600 LAZARUS Administration Magnesium Hydroxide 30 ml 02/19/22 02:02 Magnesium Hydroxide (Mom) Oral Liqd Udc PO Q4H PRN Constipation Midodrine 2.5 mg 03/14/22 17:20 03/14/22 17:56 Midodrine 2.5 Mg Tab PO 2.5 mg TID@0800,1200,1600 LAZARUS Administration Multi-Ingred Cream/Lotion/Oil/Oint 1 applic 02/24/22 15:05 Mineral Oil/Petrolatum, White Ophth Oint 3.5 Gm OU Q4HR PRN Dry Eye(s) Ondansetron HCl 4 mg 02/19/22 02:02 Ondansetron 4 Mg/2 Ml Inj IV Q8H PRN Nausea And Vomiting Pravastatin Sodium 40 mg 02/25/22 22:00 03/14/22 21:16 Pravastatin 40 Mg Tab FEEDTUBE 40 mg QHS LAZARUS Administration Senna/Docusate Sodium 1 tab 02/24/22 22:00 03/14/22 21:16 Sennosides/Docusate Sodium 8.6/50 Mg Tab FEEDTUBE 1 tab BID LAZARUS Administration Sodium Chloride 10 ml 02/19/22 10:00 03/15/22 05:36 Sodium Chloride 0.9% 10 Ml Flush Syringe IV 10 ml BID LAZARUS Administration Sodium Chloride 10 ml 02/19/22 02:02 03/03/22 14:21 Sodium Chloride 0.9% 10 Ml Flush Syringe IV 10 ml PRN PRN Administration LINE FLUSH Nutrition/Malnutrition Assess - Dietary Evaluation Nutrition/Malnutrition Findings: Nutrition Notes Start: 02/19/22 14:29 Freq: Status: Active Protocol: Document 03/14/22 14:33 IVAN (Rec: 03/14/22 14:36 IVNA [id number]) Nutrition Notes Initial or Follow up Reassessment Current Diagnosis Hypertension,Respiratory Failure,Hyperlipidemia Other Pertinent Diagnosis Asp pneu, acute encephalopathy , seizure d/o, partial blindness Current Diet TF - Vital AF 1.2 at 50ml/hr Labs/Tests Reviewed Pertinent Medications Reviewed Height 5 ft 3 in Weight 63.2 kg [place] Body Weight (kg) 56.36 BMI 24.7 Weight Status Appropriate Subjective/Other Information Pt remains on vent support; no trach or PEG placed yet. Pt continues to tolerate TF. BM x 1 today. Percent of energy/protein needs met: 90% energy 100% pro Burn Absent Trauma Absent #1 Nutrition Diagnosis Inadequate oral intake Diagnosis Progress(for reassessment Continues documentation) Is patient on ventilator? Yes Is Patient Ambulatory and/or Out of Bed No REE-([facility]-confined to bed) 1562.902 Calculation Used for Recommendations [facility] Additional Notes Pro needs 1.2-2g/k-126g/ day Fluid needs 1ml/kcal Nutrition Intervention Nutrition Support: Continue Vital AF 1.2 at 50ml/ hr with 75ml water flush q4h. Kcal 1,440 Protein (gm) 90 Carbohydrates (gm) 133 Fat (gm) 65 Fluid (mL) 973 Fiber (gm) 6 Goal #1 TF tolerance Goal #2 TF to meet at least 75% energy and pro needs Follow-Up By: 03/21/22 Additional Comments F/U: stable TF, trach/PEG placement, vent status <SILVIA BUCHANAN - Last Filed: 04/01/22 10:50> History Interval history: I saw and evaluated the patient. I agree with the findings and the plan of care as documented in the Nurse Practitioner's~note, with the following corrections and additions. Hospitalist Physical - Constitutional Vitals: Temp Pulse Resp BP Pulse Ox 97.9 F 71 14 121/68 97 04/01/22 07:09 04/01/22 07:51 04/01/22 07:51 04/01/22 07:43 04/01/22 07:43 HEART Score - HEART Score Troponin: Troponin T < 0.010 ng/mL (0.00-0.029) 02/18/22 21:02 Results - Labs CBC & Chem 7: 03/31/22 03:56 03/31/22 03:56 Labs: Laboratory Last Values WBC 9.7 K/mm3 (4.5-11.0) 03/31/22 03:56 RBC 3.08 M/mm3 (3.65-5.03) L 03/31/22 03:56 Hgb 9.5 gm/dl (11.8-15.2) L 03/31/22 03:56 Hct 30.1 % (35.5-45.6) L 03/31/22 03:56 MCV 98 fl (84-94) H 03/31/22 03:56 MCH 31 pg (28-32) 03/31/22 03:56 MCHC 32 % (32-34) 03/31/22 03:56 RDW 17.7 % (13.2-15.2) H 03/31/22 03:56 Plt Count 331 K/mm3 (140-440) 03/31/22 03:56 Lymph % (Auto) 7.5 % (13.4-35.0) L 03/28/22 04:06 Graham % (Auto) 10.5 % (0.0-7.3) H 03/28/22 04:06 Eos % (Auto) 0.9 % (0.0-4.3) 03/28/22 04:06 Baso % (Auto) 0.4 % (0.0-1.8) 03/28/22 04:06 Lymph # (Auto) 1.1 K/mm3 (1.2-5.4) L 03/28/22 04:06 Graham # (Auto) 1.5 K/mm3 (0.0-0.8) H 03/28/22 04:06 Eos # (Auto) 0.1 K/mm3 (0.0-0.4) 03/28/22 04:06 Baso # (Auto) 0.1 K/mm3 (0.0-0.1) 03/28/22 04:06 Add Manual Diff Complete 03/03/22 03:54 Total Counted 100 03/03/22 03:54 Seg Neutrophils % 80.7 % (40.0-70.0) H 03/28/22 04:06 Seg Neuts % (Manual) 95.0 % (40.0-70.0) H 03/03/22 03:54 Band Neutrophils % 0 % 03/03/22 03:54 Lymphocytes % (Manual) 3.0 % (13.4-35.0) L 03/03/22 03:54 Reactive Lymphs % (Man) 0 % 03/03/22 03:54 Monocytes % (Manual) 2.0 % (0.0-7.3) 03/03/22 03:54 Eosinophils % (Manual) 0 % (0.0-4.3) 03/03/22 03:54 Basophils % (Manual) 0 % (0.0-1.8) 03/03/22 03:54 Metamyelocytes % 0 % 03/03/22 03:54 Myelocytes % 0 % 03/03/22 03:54 Promyelocytes % 0 % 03/03/22 03:54 Blast Cells % 0 % 03/03/22 03:54 Nucleated RBC % Not Reportable 03/03/22 03:54 Seg Neutrophils # 11.4 K/mm3 (1.8-7.7) H 03/28/22 04:06 Seg Neutrophils # Man 18.5 K/mm3 (1.8-7.7) H 03/03/22 03:54 Band Neutrophils # 0.0 K/mm3 03/03/22 03:54 Lymphocytes # (Manual) 0.6 K/mm3 (1.2-5.4) L 03/03/22 03:54 Abs React Lymphs (Man) 0.0 K/mm3 03/03/22 03:54 Monocytes # (Manual) 0.4 K/mm3 (0.0-0.8) 03/03/22 03:54 Eosinophils # (Manual) 0.0 K/mm3 (0.0-0.4) 03/03/22 03:54 Basophils # (Manual) 0.0 K/mm3 (0.0-0.1) 03/03/22 03:54 Metamyelocytes # 0.0 K/mm3 03/03/22 03:54 Myelocytes # 0.0 K/mm3 03/03/22 03:54 Promyelocytes # 0.0 K/mm3 03/03/22 03:54 Blast Cells # 0.0 K/mm3 03/03/22 03:54 WBC Morphology Not Reportable 03/03/22 03:54 Hypersegmented Neuts Not Reportable 03/03/22 03:54 Hyposegmented Neuts Not Reportable 03/03/22 03:54 Hypogranular Neuts Not Reportable 03/03/22 03:54 Smudge Cells Not Reportable 03/03/22 03:54 Toxic Granulation Not Reportable 03/03/22 03:54 Toxic Vacuolation Not Reportable 03/03/22 03:54 Dohle Bodies Not Reportable 03/03/22 03:54 Pelger-Huet Anomaly Not Reportable 03/03/22 03:54 Lakshmi Rods Not Reportable 03/03/22 03:54 Platelet Estimate Consistent w auto 03/03/22 03:54 Clumped Platelets Not Reportable 03/03/22 03:54 Plt Clumps, EDTA Not Reportable 03/03/22 03:54 Large Platelets Not Reportable 03/03/22 03:54 Giant Platelets Not Reportable 03/03/22 03:54 Platelet Satelliting Not Reportable 03/03/22 03:54 Plt Morphology Comment Not Reportable 03/03/22 03:54 RBC Morphology Not Reportable 03/03/22 03:54 Dimorphic RBCs Not Reportable 03/03/22 03:54 Polychromasia Not Reportable 03/03/22 03:54 Hypochromasia Not Reportable 03/03/22 03:54 Poikilocytosis Not Reportable 03/03/22 03:54 Anisocytosis 1+ 03/03/22 03:54 Microcytosis Not Reportable 03/03/22 03:54 Macrocytosis Not Reportable 03/03/22 03:54 Spherocytes Not Reportable 03/03/22 03:54 Pappenheimer Bodies Not Reportable 03/03/22 03:54 Sickle Cells Not Reportable 03/03/22 03:54 Target Cells Not Reportable 03/03/22 03:54 Tear Drop Cells Not Reportable 03/03/22 03:54 Ovalocytes Not Reportable 03/03/22 03:54 Helmet Cells Not Reportable 03/03/22 03:54 [place] Bodies Not Reportable 03/03/22 03:54 [place] Rings Not Reportable 03/03/22 03:54 [place] Cells Not Reportable 03/03/22 03:54 Bite Cells Not Reportable 03/03/22 03:54 Crenated Cell Not Reportable 03/03/22 03:54 Elliptocytes Not Reportable 03/03/22 03:54 Acanthocytes (Spur) Not Reportable 03/03/22 03:54 Rouleaux Not Reportable 03/03/22 03:54 Hemoglobin C Crystals Not Reportable 03/03/22 03:54 Schistocytes Not Reportable 03/03/22 03:54 Malaria parasites Not Reportable 03/03/22 03:54 Cash Bodies Not Reportable 03/03/22 03:54 Hem Pathologist Commnt No 03/03/22 03:54 PT 16.2 Sec. (12.2-14.9) H 03/11/22 04:02 INR 1.16 (0.87-1.13) H 03/11/22 04:02 ABG pH 7.392 pH Units (7.350-7.450) 03/22/22 14:25 ABG pCO2 54.4 mm Hg 03/22/22 14:25 ABG pO2 150.5 mm Hg (80.0-90.0) H 03/22/22 14:25 ABG HCO3 32.4 mmol/L (20.0-26.0) H 03/22/22 14:25 ABG O2 Saturation 98.8 % (95.0-99.0) 03/22/22 14:25 ABG O2 Content 15.8 (0.0-44) 03/22/22 14:25 ABG Base Excess 6.2 mmol/L (-2.0-3.0) H 03/22/22 14:25 ABG Hemoglobin 11.4 gm/dl (14.0-18.0) L 03/22/22 14:25 ABG Carboxyhemoglobin 1.6 % (0.0-5.0) 03/22/22 14:25 ABG Methemoglobin 0.6 % (0.0-1.5) 03/22/22 14:25 Oxyhemoglobin 96.6 % (95.0-99.0) 03/22/22 14:25 FiO2 30 % 03/22/22 14:25 Sodium 135 mmol/L (137-145) L 03/31/22 03:56 Potassium 4.5 mmol/L (3.6-5.0) 03/31/22 03:56 Chloride 97.4 mmol/L (98-107) L 03/31/22 03:56 Carbon Dioxide 31 mmol/L (22-30) H 03/31/22 03:56 Anion Gap 11 mmol/L 03/31/22 03:56 BUN 18 mg/dL (9-20) 03/31/22 03:56 Creatinine 0.5 mg/dL (0.8-1.3) L 03/31/22 03:56 Estimated GFR > 60 ml/min 03/31/22 03:56 BUN/Creatinine Ratio 36 % 03/31/22 03:56 Glucose 102 mg/dL (75-100) H 03/31/22 03:56 POC Glucose 118 mg/dL (70-105) H 04/01/22 00:09 Lactic Acid 1.20 mmol/L (0.7-2.0) 02/18/22 21:02 Calcium 8.8 mg/dL (8.4-10.2) 03/31/22 03:56 Phosphorus 3.50 mg/dL (2.5-4.5) 03/20/22 04:09 Magnesium 2.00 mg/dL (1.7-2.3) 03/20/22 04:09 Total Bilirubin 0.30 mg/dL (0.1-1.2) 03/10/22 03:57 AST 17 units/L (5-40) 03/10/22 03:57 ALT 18 units/L (7-56) 03/10/22 03:57 Alkaline Phosphatase 89 units/L (35-129) 03/10/22 03:57 Ammonia 14.0 umol/L (25-60) L 02/18/22 23:22 Troponin T < 0.010 ng/mL (0.00-0.029) 02/18/22 21:02 Total Protein 6.6 g/dL (6.3-8.2) 03/10/22 03:57 Albumin 1.9 g/dL (3.9-5) L 03/10/22 03:57 Albumin/Globulin Ratio 0.4 % 03/10/22 03:57 Urine Color Yellow (Yellow) 03/27/22 08:36 Urine Turbidity Cloudy (Clear) 03/27/22 08:36 Urine pH 7.0 (5.0-7.0) 02/18/22 Unknown Ur Specific [place] 1.015 (1.003-1.030) 02/18/22 Unknown Specific [place] (Man) 1.020 (1.003-1.030) 03/27/22 08:36 Urine Protein <15 mg/dl mg/dL (Negative) 02/18/22 Unknown Ur Protein (Man) 1+ mg/dL (Negative) 03/27/22 08:36 Urine Glucose (UA) Negative mg/dL (Negative) 02/18/22 Unknown Urine Ketones Negative mg/dL (Negative) 02/18/22 Unknown Ur Ketones (Man) Negative (Negative) 03/27/22 08:36 Urine Blood Trace (Negative) 02/18/22 Unknown Urine Nitrite Negative (Negative) 02/18/22 Unknown Ur Nitrite (Man) Negative (Negative) 03/27/22 08:36 Ur Reducing Substances Not Reportable 03/27/22 08:36 Urine Bilirubin Negative (Negative) 02/18/22 Unknown Urine Bilirubin (Man) Negative (Negative) 03/27/22 08:36 Urine Ictotest Not Reportable 03/27/22 08:36 Urine Urobilinogen < 2.0 mg/dL (<2.0) 02/18/22 Unknown Ur Leukocyte Esterase Negative (Negative) 02/18/22 Unknown Leukocyte Esterase (Man) Moderate (Negative) 03/27/22 08:36 Urine WBC (Auto) > 182.0 /HPF (0.0-6.0) H 03/27/22 08:36 Urine RBC (Auto) 9.0 /HPF (0.0-6.0) 03/27/22 08:36 U Epithel Cells (Auto) < 1.0 /HPF (0-13.0) 03/27/22 08:36 Urine RBC (Manual) 1+ (Negative) 03/27/22 08:36 Urine Mucus Few /HPF 03/27/22 08:36 Urine Yeast (Budding) 2+ /HPF 03/27/22 08:36 Urine Opiates Screen Negative 02/18/22 Unknown Urine Methadone Screen Negative 02/18/22 Unknown Ur Barbiturates Screen Negative 02/18/22 Unknown Ur Phencyclidine Scrn Negative 02/18/22 Unknown Ur Amphetamines Screen Negative 02/18/22 Unknown U Benzodiazepines Scrn Negative 02/18/22 Unknown Urine Cocaine Screen Negative 02/18/22 Unknown U Marijuana (THC) Screen Negative 02/18/22 Unknown Drugs of Abuse Note Disclamer 02/18/22 Unknown Plasma/Serum Alcohol < 0.01 % (0-0.07) 02/18/22 21:02 Summers/IV: Voiding Method Indwelling Catheter Active Medications - Current Medications Current Medications: Generic Name Dose Route Start Last Admin Trade Name Freq PRN Reason Stop Dose Admin Acetaminophen 650 mg 03/03/22 09:00 Acetaminophen 325 Mg/10.15 Ml Oral Liqd Unit Dose FEEDTUBE Q4H PRN Pain, Mild (1-3); TEMP > 100.4 Albuterol 2.5 mg 03/12/22 20:00 04/01/22 07:50 Albuterol 2.5 Mg/3 Ml Nebu IH 2.5 mg Q6HRT LAZARUS Administration Famotidine 20 mg 02/25/22 10:00 04/01/22 09:20 Famotidine 20 Mg Tab FEEDTUBE 20 mg BID LAZARUS Administration Heparin Sodium (Porcine) 5,000 unit 02/19/22 06:00 04/01/22 05:22 Heparin 5,000 Unit/1 Ml Vial SUB-Q 5,000 unit Q8HR LAZARUS Administration Levetiracetam 500 mg 02/25/22 22:00 04/01/22 09:20 Levetiracetam 500 Mg/5 Ml Oral Liqd FEEDTUBE 500 mg BID LAZARUS Administration Levothyroxine Sodium 25 mcg 02/26/22 06:00 04/01/22 05:22 Levothyroxine 25 Mcg Tab FEEDTUBE 25 mcg QAM@0600 LAZARUS Administration Magnesium Hydroxide 30 ml 02/19/22 02:02 Magnesium Hydroxide (Mom) Oral Liqd Udc PO Q4H PRN Constipation Midodrine 2.5 mg 03/19/22 12:00 04/01/22 09:20 Midodrine 2.5 Mg Tab FEEDTUBE 2.5 mg TID@0800,1200,1600 LAZARUS Administration Multi-Ingred Cream/Lotion/Oil/Oint 1 applic 02/24/22 15:05 Mineral Oil/Petrolatum, White Ophth Oint 3.5 Gm OU Q4HR PRN Dry Eye(s) Ondansetron HCl 4 mg 02/19/22 02:02 Ondansetron 4 Mg/2 Ml Inj IV Q8H PRN Nausea And Vomiting Pravastatin Sodium 40 mg 02/25/22 22:00 03/31/22 21:01 Pravastatin 40 Mg Tab FEEDTUBE 40 mg QHS LAZARUS Administration Senna/Docusate Sodium 1 tab 02/24/22 22:00 03/31/22 23:35 Sennosides/Docusate Sodium 8.6/50 Mg Tab FEEDTUBE 1 tab BID LAZARUS Administration Sodium Chloride 10 ml 02/19/22 10:00 04/01/22 09:20 Sodium Chloride 0.9% 10 Ml Flush Syringe IV 10 ml BID LAZARUS Administration Sodium Chloride 10 ml 02/19/22 02:02 03/03/22 14:21 Sodium Chloride 0.9% 10 Ml Flush Syringe IV 10 ml PRN PRN Administration LINE FLUSH Nutrition/Malnutrition Assess - Dietary Evaluation Nutrition/Malnutrition Findings: Nutrition Notes Start: 02/19/22 14:29 Freq: Status: Active Protocol: Document 03/31/22 14:18 [facility] (Rec: 03/31/22 14:23 [facility] [id number]) Nutrition Notes Initial or Follow up Reassessment Current Diagnosis Hypertension,Respiratory Failure,Hyperlipidemia Other Pertinent Diagnosis Asp pneu, acute encephalopathy , seizure d/o, partial blindness Current Diet TF - Promote at 65ml/hr Labs/Tests Na 135 CO2 - 31 Pertinent Medications Reviewed Height 5 ft 3 in Weight 63.2 kg [place] Body Weight (kg) 56.36 BMI 24.7 Subjective/Other Information Pt remains on vent support; still awaiting decision on guardianship for trach/PEG placement. Observed Promote infusing at 50ml/hr; RN informed of goal rate. BM x 1 on yesterday. Percent of energy/protein needs met: 75% energy 99% pro Burn Absent Trauma Absent #1 Nutrition Diagnosis Inadequate oral intake Diagnosis Progress(for reassessment Continues documentation) Is patient on ventilator? Yes Is Patient Ambulatory and/or Out of Bed No REE-([facility]-confined to bed) [phone] Calculation Used for Recommendations [facility] Additional Notes Pro needs 1.2-2g/k-126g/ day Fluid needs 1ml/kcal Nutrition Intervention Nutrition Support: Continue Promote to goal rate of 65ml/hr. Provide 50ml water flush q4h. Kcal 1,560 Protein (gm) 98 Carbohydrates (gm) 203 Fat (gm) 41 Fluid (mL) 1,309 Fiber (gm) 0 Goal #1 TF tolerance Goal #2 TF to meet 75%-100% energy and pro needs Goal #3 Wound healing Follow-Up By: 04/04/22 Additional Comments F/U: TF goal rate/tolerance
[2022-03-15] MEDS: PRAVASTATIN 40 MG TAB FEEDTUBE SCH (21:27)
[2022-03-16] MEDS: ALBUTEROL 2.5 MG/3 ML NEBU IH SCH ×4 (03:15→20:22)
[2022-03-16 05:49] LABS: Hematocrit 27.8 % (35.5-45.6); Hemoglobin 9.1 gm/dl (11.8-15.2); Mean Corpuscular HGB Conc 33 % (32-34); Mean Corpuscular Volume 99 fl (84-94); Platelet Count 355 K/mm3 (140-440); Red Blood Count 2.81 M/mm3 (3.65-5.03)
[2022-03-16 06:05] LABS: Blood Urea Nitrogen 17 mg/dL (9-20); Calcium 8.2 mg/dL (8.4-10.2); Hemolysis Index 4
[2022-03-16 06:15] LABS: BUN/Creatinine Ratio 34
[2022-03-16] MEDS: HEPARIN 5,000 UNIT/1 ML VIAL SUB-Q SCH ×3 (06:18→21:27)
[2022-03-16] MEDS: LEVOTHYROXINE 25 MCG TAB FEEDTUBE SCH (06:18)
[2022-03-16] MEDS: MIDODRINE 2.5 MG TAB PO SCH ×3 (08:31→17:29)
[2022-03-16] MEDS: levETIRAcetam 500 MG/5 ML ORAL LIQD FEEDTUBE SCH ×2 (09:10→21:27)
[2022-03-16] MEDS: SENNOSIDES/DOCUSATE SODIUM 8.6/50 MG TAB FEEDTUBE SCH ×2 (09:10→21:27)
[2022-03-16] MEDS: FAMOTIDINE 20 MG TAB FEEDTUBE SCH ×2 (09:10→21:27)
--- NOTE | 2022-03-16 11:41 | Progress Note ---
Assessment and Plan 61 y/o male with abnormal CT of chest. 03/16/22: Day 20 of intubation. BP stable. Continue midodrine. Awaiting emergency guardianship from Court to obtain consent for trach and peg. Guarded prognosis. 03/15/22: Day 19 of intubation. BP now is marginal more regularly. Will give an additional liter bolus of LR now. May need to increase Midodrine back to 5. Needs trach in order to be safely weaned from ventilator. Will need peg tube placement in addition to trach. Prognosis remains guarded. Continue PSV trials as tolerated. 03/14/22: Day 18 of intubation. Vitals stable and mental status is unchanged. Still in need of tracheostomy as well as peg tube placement. No guardian appointed yet. 03/13/22: Day 17 of intubation. Agree with bolus and restarting of midodrine. was stopped previously secondary to bradycardia. If patient spikes temp, will culture blood and urine and repeat CXR. Continue daily PSV trials to assess ability for vent liberation. Continues to need trach however no family/guardian to provide consent. Guarded prognosis. 03/12/22: Day 16 of intubation. Following up with hospital in regards to guardian. Continue supportive measures. Guarded prognosis. 03/11/22: hospital now attempting to find emergency guardian to have consent for trach as ethics committee cannot comment on this matter so unable to help. Until then will remain intubated orally. Failed PSV yesterday, will continue to attempt on daily basis. Unfortunate situation. Guarded prognosis. 03/10/22: Today nuñez day 14 of intubation. Given patient's mental state and increased risk of aspiration, the likelihood of conventional extubation with success is very very slim and the patient has already failed this in an extremely short period of time (less than 1 hour). I suspect that he will fail again if tried and could create more difficult reintubation as he was a difficult reintubation on his failed extubation attempt. To prevent further decline and potential complications of prolonged mechanical ventilation, will discuss with ethics and the hospital to use 2 physician consent to obtain trach and peg for this patient with hopes of liberating him from the mechanical ventilator. he has very minimal vent requirements but as been stated several times above, he continues to aspirate and failed conventional extubation almost immediately. Will consult surgery today. Dr. Mancia is prepared to sign consent as well as myself. Hopeful surgery will be on board with this. Continue supportive care for now. Attempt daily PSV trials. 03/07/22: Daily PSV trials as tolerated. Still no one to step up as adult friend. patient has now been intubated since 02/24/22 and is approaching the time period in which prolonged mechanical ventilation could lead to significant complications that could be detrimental to health (infection, stenosis, malacia etc). Will discuss again with ethics but in regards to medical necessity, may need to consider two physician consent if no one is able to claim responsibility for this patient. He is a full code and we must work in his best interest to prevent further harm. Continue supportive measures but he is not a candidate for conventional extubation given his mental state, despite being on minimal support. He has already failed this before. 03/06/22: PSV trials daily. Will discuss with RT. Spoke with ethics. Plan in place and awaiting on news from [facility] and [facility]. Continue supportive measures. Patient has been intubated since 02/24/22 and is approaching the 2 week shadi of intubation will need to make decisions soon to avoid unnecessary complications related to prolonged intubation. 03/05/22: Will follow up with ethics today. Awaiting some guidance about consent for trach and peg. This is a medical necessity to liberate patient from mechanical ventilation. Continue supportive measures. Ok with daily PSV trials 03/04/22: Follow up with ethics later this afternoon. Spoke with RT and patient does have cuff leak, will stop steroids. Stopping midodrine as BP is stable and bradycardia likely from this. 03/03/22: Await ethics eval. CM has spoken with state as well. Daily cuff leaks. Will start to wean steroids tomorrow. Midodrine can cause bradycardia. If continues or worsens will stop. Guarded prognosis. 03/02/22: Continue supportive measures. Await ethics consult before surgery consult for trach and peg. no further need for fluid boluses. Will continue stress dose steroids but have daily air leak checks by RT. Still will need trach, will not attempt extubation again. Guarded prognosis. 03/01/22: Patient is having increased urine output. This could be the cause of new onset hypotension. Will bolus 2 more liters of LR now and reassess. If this continues may need to work up for SIADH including repeat head CT. Follow up ethics review of case. Will need trach for ventilator liberation. Overall prognosis remains guarded. 02/28/22: Will obtain CT neck, noncontrast to look for airway edema or other possible etiologies for failure. Needs ethics consult as given patient's mental state, inability to clear secretions appropriately, will need trach now that he has failed extubation. However he has no family and no POA so no one to give consent. Continue supportive measures. Guarded prognosis. 02/27/22: Continue improvement of oxygenation. Will drop PEEP down today with goal of being at 6 by in the morning. Will repeat CT scan to confirm improvement as no endobronchial lesion was seen, but also to make sure no parenchymal mass. There was no evidence of extrinsic compression during bronch. Likely extubation tomorrow post CT. 02/26/22: Repeat CXR now. Wean Vent as tolerated. Hopeful extubation soon. Mucous removed. NO ENDOBRONCHIAL LESION/MASS 02/25/22: Bronch tentatively planned for tomorrow with therapeutic scope. Awaiting GI lab to give a time. NPO after midnight. Continue high PEEP 02/24/22: WIll attempt to bronch tomorrow morning. NPO after midnight. Just received word from GI lab they are not able to do bronch tomorrow. Cancel NPO order. Continue to feed patient. Repeat ABG in AM along with CXR. 02/21/22: No new pulm recs for today. Please obtain repeat CXR likely on Thursday. If patient happens to get worse, likely not a candidate for bipap given his weak cough and mental state and inability to communicate. If worsens and requires intubation, will bronch then under emergent circumstances if no POA or family is able to be located. Continue CPT. Will discuss with RT about NT suctioning. 02/20/22: Saw speech while on the floor. Would like patient to be NPO now. Discussed with nurse on floor and with IMS. Same recs pulm way as yesterday. Would benefit from bronch if able to get consent as this is not emergent. Continue CPT and q shift NT suctioning. Reviewed admission in the past and of note, patient was recently admitted last month and had a CXR done on the 29 of January that was normal. Given this patient's medical history and the history that I obtained from the nursing staff that [facility] solid [facility], I suspect that this is aspiration, possibly of a foreign body (most likely food) with atelectasis of the right lower lobe. It is highly unlikely that a mass evolved in size in less than a months time and patient, besides age, has no real risk factors for lung carcinoma. Discussed with the nurse and unfortunately there is no identifiable person that is able to give consent. Bronchoscopy is needed in the case to evaluate to see if lung mass is there vs foreign body, but at this time not able to do. In the meanwhile will recommend the following. 1. Will order CPT with neb therapy 3x daily 2. Suggest maybe NT suctioning q shift. May use nasal trumpet, however do not leave this device in the patient 3. Aspiration precautions 4. Consider speech eval to assess swallowing. Will continue to follow. CCT 31 minutes. Subjective Date of service: 03/16/22 Principal diagnosis: f/u Acute respiratory failure Interval history: No acute events. Failed PSV early yesterday. Has not been tried on PSV today. Objective Vital Signs - 12hr 03/16/22 03/16/22 03/16/22 00:00 01:01 02:00 Temperature 98.3 F Pulse Rate 80 81 80 Pulse Rate [ Bilateral Throughout] Pulse Rate [ 80 From Monitor] Respiratory 14 14 14 Rate Respiratory Rate [Bilateral Throughout] Blood Pressure 81/42 112/60 112/57 O2 Sat by Pulse 96 95 Oximetry 03/16/22 03/16/22 03/16/22 03:00 03:16 03:18 Temperature Pulse Rate 80 79 Pulse Rate [ 81 Bilateral Throughout] Pulse Rate [ From Monitor] Respiratory 16 Rate Respiratory 15 Rate [Bilateral Throughout] Blood Pressure 116/60 116/60 O2 Sat by Pulse 95 97 Oximetry 03/16/22 03/16/22 03/16/22 04:00 05:00 06:01 Temperature 98.0 F Pulse Rate 72 80 73 Pulse Rate [ Bilateral Throughout] Pulse Rate [ 77 From Monitor] Respiratory 14 16 14 Rate Respiratory Rate [Bilateral Throughout] Blood Pressure 107/55 130/68 117/58 O2 Sat by Pulse 97 96 96 Oximetry 03/16/22 03/16/22 03/16/22 07:00 08:00 08:28 Temperature 97.5 F L Pulse Rate 75 78 Pulse Rate [ 84 Bilateral Throughout] Pulse Rate [ 73 From Monitor] Respiratory 12 14 Rate Respiratory 14 Rate [Bilateral Throughout] Blood Pressure 118/57 113/59 O2 Sat by Pulse 97 98 Oximetry 03/16/22 03/16/22 03/16/22 08:42 09:00 10:00 Temperature Pulse Rate 79 75 61 Pulse Rate [ Bilateral Throughout] Pulse Rate [ From Monitor] Respiratory 15 14 Rate Respiratory Rate [Bilateral Throughout] Blood Pressure 113/59 123/64 123/64 O2 Sat by Pulse 99 99 Oximetry 03/16/22 11:18 Temperature Pulse Rate 65 Pulse Rate [ Bilateral Throughout] Pulse Rate [ From Monitor] Respiratory Rate Respiratory Rate [Bilateral Throughout] Blood Pressure 96/50 O2 Sat by Pulse 100 Oximetry Constitutional: alert, other (critically ill on ventilator) Eyes: non-icteric ENT: oropharynx moist Neck: supple Effort: normal Ascultation: Bilateral: diminished breath sounds, rhonchi Cardiovascular: regular rate and rhythm (no mrg) Gastrointestinal: normoactive bowel sounds, soft, non-tender (on o2 vest in place), non-distended Integumentary: normal Extremities: no cyanosis, no edema Neurologic: other (awake) Psychiatric: other (unable to assess) CBC and BMP: 03/16/22 05:28 03/16/22 05:28 ABG, PT/INR, D-dimer: ABG ABG pH 7.476 pH Units (7.350-7.450) H 03/11/22 05:10 ABG pCO2 41.2 mm Hg 03/11/22 05:10 ABG pO2 84.0 mm Hg (80.0-90.0) 03/11/22 05:10 ABG O2 Saturation 97.1 % (95.0-99.0) 03/11/22 05:10 PT/INR, D-dimer PT 16.2 Sec. (12.2-14.9) H 03/11/22 04:02 INR 1.16 (0.87-1.13) H 03/11/22 04:02 Abnormal lab findings: Abnormal Labs 02/18/22 02/18/22 02/18/22 19:34 21:02 21:02 WBC RBC Hgb Hct MCV 101 H MCH 34 H MCHC RDW 16.1 H Lymph % (Auto) Jay % (Auto) 12.4 H Lymph # (Auto) Jay # (Auto) 1.2 H Seg Neutrophils % 73.0 H Seg Neuts % (Manual) Lymphocytes % (Manual) Seg Neutrophils # Seg Neutrophils # Man Lymphocytes # (Manual) PT 16.9 H INR 1.20 H ABG pH ABG pO2 ABG HCO3 ABG O2 Saturation ABG Base Excess ABG Hemoglobin Oxyhemoglobin Sodium Potassium Chloride Carbon Dioxide BUN Creatinine Glucose POC Glucose 116 H Calcium Phosphorus AST ALT Ammonia Albumin 02/18/22 02/18/22 02/18/22 21:02 22:45 23:22 WBC RBC Hgb Hct MCV MCH MCHC RDW Lymph % (Auto) Jay % (Auto) Lymph # (Auto) Jay # (Auto) Seg Neutrophils % Seg Neuts % (Manual) Lymphocytes % (Manual) Seg Neutrophils # Seg Neutrophils # Man Lymphocytes # (Manual) PT INR ABG pH ABG pO2 55.6 L ABG HCO3 28.4 H ABG O2 Saturation 91.5 L ABG Base Excess 3.8 H ABG Hemoglobin 13.2 L Oxyhemoglobin 89.6 L Sodium Potassium 5.1 H Chloride Carbon Dioxide BUN Creatinine Glucose 102 H POC Glucose Calcium Phosphorus AST 48 H ALT 64 H Ammonia 14.0 L Albumin 2.7 L 02/20/22 02/20/22 02/23/22 04:59 04:59 06:29 WBC 11.4 H RBC Hgb Hct MCV 103 H MCH 33 H MCHC RDW 16.5 H Lymph % (Auto) 5.5 L Jay % (Auto) 12.1 H Lymph # (Auto) 0.6 L Jay # (Auto) 1.4 H Seg Neutrophils % 81.4 H Seg Neuts % (Manual) Lymphocytes % (Manual) Seg Neutrophils # 9.2 H Seg Neutrophils # Man Lymphocytes # (Manual) PT INR ABG pH ABG pO2 ABG HCO3 ABG O2 Saturation ABG Base Excess ABG Hemoglobin Oxyhemoglobin Sodium Potassium Chloride Carbon Dioxide BUN Creatinine Glucose POC Glucose 113 H Calcium 8.2 L Phosphorus AST ALT Ammonia Albumin 02/23/22 02/23/22 02/24/22 11:22 16:10 00:02 WBC RBC Hgb Hct MCV MCH MCHC RDW Lymph % (Auto) Jay % (Auto) Lymph # (Auto) Jay # (Auto) Seg Neutrophils % Seg Neuts % (Manual) Lymphocytes % (Manual) Seg Neutrophils # Seg Neutrophils # Man Lymphocytes # (Manual) PT INR ABG pH ABG pO2 ABG HCO3 ABG O2 Saturation ABG Base Excess ABG Hemoglobin Oxyhemoglobin Sodium Potassium Chloride Carbon Dioxide BUN Creatinine Glucose POC Glucose 108 H 115 H 109 H Calcium Phosphorus AST ALT Ammonia Albumin 02/24/22 02/24/22 02/24/22 11:05 11:05 13:20 WBC RBC 3.55 L Hgb Hct MCV 100 H MCH 34 H MCHC RDW 15.6 H Lymph % (Auto) Jay % (Auto) Lymph # (Auto) Jay # (Auto) Seg Neutrophils % Seg Neuts % (Manual) Lymphocytes % (Manual) Seg Neutrophils # Seg Neutrophils # Man Lymphocytes # (Manual) PT INR ABG pH ABG pO2 ABG HCO3 ABG O2 Saturation ABG Base Excess ABG Hemoglobin Oxyhemoglobin Sodium 146 H Potassium 3.2 L D Chloride 108.4 H Carbon Dioxide BUN Creatinine 0.5 L Glucose POC Glucose 111 H Calcium 7.9 L Phosphorus 2.20 L AST ALT Ammonia Albumin 02/24/22 02/24/22 02/24/22 16:30 17:03 20:25 WBC RBC Hgb Hct MCV MCH MCHC RDW Lymph % (Auto) Jay % (Auto) Lymph # (Auto) Jay # (Auto) Seg Neutrophils % Seg Neuts % (Manual) Lymphocytes % (Manual) Seg Neutrophils # Seg Neutrophils # Man Lymphocytes # (Manual) PT INR ABG pH 7.319 L ABG pO2 65.3 L ABG HCO3 31.3 H ABG O2 Saturation 92.2 L ABG Base Excess 3.8 H ABG Hemoglobin 12.0 L Oxyhemoglobin 90.3 L Sodium Potassium Chloride 107.9 H Carbon Dioxide BUN 8 L Creatinine 0.4 L Glucose POC Glucose 108 H Calcium 7.6 L Phosphorus 4.60 H D AST ALT Ammonia Albumin 02/25/22 02/25/22 02/25/22 04:12 04:12 05:05 WBC RBC 3.07 L Hgb 10.2 L Hct 31.5 L MCV 103 H MCH 33 H MCHC RDW 15.6 H Lymph % (Auto) Jay % (Auto) Lymph # (Auto) Jay # (Auto) Seg Neutrophils % Seg Neuts % (Manual) Lymphocytes % (Manual) Seg Neutrophils # Seg Neutrophils # Man Lymphocytes # (Manual) PT INR ABG pH ABG pO2 ABG HCO3 32.5 H ABG O2 Saturation ABG Base Excess 5.6 H ABG Hemoglobin 10.8 L Oxyhemoglobin 94.8 L Sodium Potassium 3.5 L Chloride 107.7 H Carbon Dioxide BUN Creatinine 0.5 L Glucose POC Glucose Calcium 7.0 L Phosphorus AST ALT Ammonia Albumin 02/25/22 02/25/22 02/26/22 12:05 18:33 00:07 WBC RBC Hgb Hct MCV MCH MCHC RDW Lymph % (Auto) Jay % (Auto) Lymph # (Auto) Jay # (Auto) Seg Neutrophils % Seg Neuts % (Manual) Lymphocytes % (Manual) Seg Neutrophils # Seg Neutrophils # Man Lymphocytes # (Manual) PT INR ABG pH ABG pO2 ABG HCO3 ABG O2 Saturation ABG Base Excess ABG Hemoglobin Oxyhemoglobin Sodium Potassium Chloride Carbon Dioxide BUN Creatinine Glucose POC Glucose 127 H 125 H 114 H Calcium Phosphorus AST ALT Ammonia Albumin 02/26/22 02/26/22 02/26/22 03:30 04:42 11:34 WBC RBC Hgb Hct MCV MCH MCHC RDW Lymph % (Auto) Jay % (Auto) Lymph # (Auto) Jay # (Auto) Seg Neutrophils % Seg Neuts % (Manual) Lymphocytes % (Manual) Seg Neutrophils # Seg Neutrophils # Man Lymphocytes # (Manual) PT INR ABG pH ABG pO2 143.2 H ABG HCO3 33.2 H ABG O2 Saturation ABG Base Excess 6.5 H ABG Hemoglobin 9.4 L Oxyhemoglobin Sodium Potassium Chloride Carbon Dioxide 32 H BUN Creatinine 0.7 L Glucose POC Glucose 114 H Calcium 8.0 L Phosphorus AST ALT Ammonia Albumin 02/26/22 02/26/22 02/27/22 18:17 23:37 04:19 WBC 13.7 H RBC 2.78 L Hgb 9.3 L Hct 28.5 L MCV 103 H MCH 33 H MCHC RDW 16.3 H Lymph % (Auto) Jay % (Auto) Lymph # (Auto) Jay # (Auto) Seg Neutrophils % Seg Neuts % (Manual) Lymphocytes % (Manual) Seg Neutrophils # Seg Neutrophils # Man Lymphocytes # (Manual) PT INR ABG pH ABG pO2 ABG HCO3 ABG O2 Saturation ABG Base Excess ABG Hemoglobin Oxyhemoglobin Sodium Potassium Chloride Carbon Dioxide BUN Creatinine Glucose POC Glucose 111 H 117 H Calcium Phosphorus AST ALT Ammonia Albumin 02/27/22 02/27/22 02/27/22 04:19 04:35 05:27 WBC RBC Hgb Hct MCV MCH MCHC RDW Lymph % (Auto) Jay % (Auto) Lymph # (Auto) Jay # (Auto) Seg Neutrophils % Seg Neuts % (Manual) Lymphocytes % (Manual) Seg Neutrophils # Seg Neutrophils # Man Lymphocytes # (Manual) PT INR ABG pH ABG pO2 96.3 H ABG HCO3 34.9 H ABG O2 Saturation ABG Base Excess 8.1 H ABG Hemoglobin Oxyhemoglobin Sodium Potassium Chloride Carbon Dioxide 31 H BUN Creatinine 0.6 L Glucose 107 H POC Glucose 133 H Calcium 7.8 L Phosphorus AST ALT Ammonia Albumin 02/27/22 02/27/22 02/28/22 11:15 23:35 03:38 WBC 13.3 H RBC 3.05 L Hgb 10.2 L Hct 30.7 L MCV 101 H MCH 33 H MCHC RDW 16.1 H Lymph % (Auto) Jay % (Auto) Lymph # (Auto) Jay # (Auto) Seg Neutrophils % Seg Neuts % (Manual) Lymphocytes % (Manual) Seg Neutrophils # Seg Neutrophils # Man Lymphocytes # (Manual) PT INR ABG pH ABG pO2 ABG HCO3 ABG O2 Saturation ABG Base Excess ABG Hemoglobin Oxyhemoglobin Sodium Potassium Chloride Carbon Dioxide BUN Creatinine Glucose POC Glucose 129 H 122 H Calcium Phosphorus AST ALT Ammonia Albumin 02/28/22 02/28/22 02/28/22 04:50 05:30 09:30 WBC RBC Hgb Hct MCV MCH MCHC RDW Lymph % (Auto) Jay % (Auto) Lymph # (Auto) Jay # (Auto) Seg Neutrophils % Seg Neuts % (Manual) Lymphocytes % (Manual) Seg Neutrophils # Seg Neutrophils # Man Lymphocytes # (Manual) PT INR ABG pH 7.451 H 7.488 H ABG pO2 77.0 L ABG HCO3 37.1 H 34.6 H ABG O2 Saturation ABG Base Excess 11.5 H 10.1 H ABG Hemoglobin 10.1 L 10.0 L Oxyhemoglobin Sodium Potassium Chloride Carbon Dioxide BUN Creatinine Glucose POC Glucose 121 H Calcium Phosphorus AST ALT Ammonia Albumin 02/28/22 02/28/22 03/01/22 11:36 23:07 04:27 WBC 12.5 H RBC 2.85 L Hgb 9.5 L Hct 28.6 L MCV 101 H MCH 33 H MCHC RDW 15.7 H Lymph % (Auto) Jay % (Auto) Lymph # (Auto) Jay # (Auto) Seg Neutrophils % Seg Neuts % (Manual) Lymphocytes % (Manual) Seg Neutrophils # Seg Neutrophils # Man Lymphocytes # (Manual) PT INR ABG pH ABG pO2 ABG HCO3 ABG O2 Saturation ABG Base Excess ABG Hemoglobin Oxyhemoglobin Sodium Potassium Chloride Carbon Dioxide BUN Creatinine Glucose POC Glucose 112 H 107 H Calcium Phosphorus AST ALT Ammonia Albumin 03/01/22 03/01/22 03/01/22 04:27 05:05 11:29 WBC RBC Hgb Hct MCV MCH MCHC RDW Lymph % (Auto) Jay % (Auto) Lymph # (Auto) Jay # (Auto) Seg Neutrophils % Seg Neuts % (Manual) Lymphocytes % (Manual) Seg Neutrophils # Seg Neutrophils # Man Lymphocytes # (Manual) PT INR ABG pH ABG pO2 ABG HCO3 ABG O2 Saturation ABG Base Excess ABG Hemoglobin Oxyhemoglobin Sodium 147 H D Potassium Chloride Carbon Dioxide 34 H BUN Creatinine 0.6 L Glucose 128 H POC Glucose 119 H 121 H Calcium 7.9 L Phosphorus AST ALT Ammonia Albumin 03/01/22 03/01/22 03/02/22 16:15 23:57 05:18 WBC RBC Hgb Hct MCV MCH MCHC RDW Lymph % (Auto) Jay % (Auto) Lymph # (Auto) Jay # (Auto) Seg Neutrophils % Seg Neuts % (Manual) Lymphocytes % (Manual) Seg Neutrophils # Seg Neutrophils # Man Lymphocytes # (Manual) PT INR ABG pH ABG pO2 110.5 H ABG HCO3 33.0 H ABG O2 Saturation ABG Base Excess 7.4 H ABG Hemoglobin 8.6 L Oxyhemoglobin Sodium Potassium Chloride Carbon Dioxide BUN Creatinine Glucose POC Glucose 134 H 140 H Calcium Phosphorus AST ALT Ammonia Albumin 03/02/22 03/02/22 03/02/22 05:53 09:04 09:04 WBC 15.0 H RBC 3.00 L Hgb 9.7 L Hct 30.7 L MCV 102 H MCH MCHC RDW 16.6 H Lymph % (Auto) Jay % (Auto) Lymph # (Auto) Jay # (Auto) Seg Neutrophils % Seg Neuts % (Manual) Lymphocytes % (Manual) Seg Neutrophils # Seg Neutrophils # Man Lymphocytes # (Manual) PT INR ABG pH ABG pO2 ABG HCO3 ABG O2 Saturation ABG Base Excess ABG Hemoglobin Oxyhemoglobin Sodium Potassium Chloride Carbon Dioxide 31 H BUN Creatinine 0.6 L Glucose 157 H POC Glucose 158 H Calcium 7.9 L Phosphorus AST ALT Ammonia Albumin 03/02/22 03/02/22 03/02/22 11:36 16:25 23:17 WBC RBC Hgb Hct MCV MCH MCHC RDW Lymph % (Auto) Jay % (Auto) Lymph # (Auto) Jay # (Auto) Seg Neutrophils % Seg Neuts % (Manual) Lymphocytes % (Manual) Seg Neutrophils # Seg Neutrophils # Man Lymphocytes # (Manual) PT INR ABG pH ABG pO2 ABG HCO3 ABG O2 Saturation ABG Base Excess ABG Hemoglobin Oxyhemoglobin Sodium Potassium Chloride Carbon Dioxide BUN Creatinine Glucose POC Glucose 160 H 132 H 157 H Calcium Phosphorus AST ALT Ammonia Albumin 03/03/22 03/03/22 03/03/22 03:54 03:54 05:27 WBC 19.5 H RBC 2.79 L Hgb 9.0 L Hct 28.6 L MCV 102 H MCH MCHC RDW 16.2 H Lymph % (Auto) Jay % (Auto) Lymph # (Auto) Jay # (Auto) Seg Neutrophils % Seg Neuts % (Manual) 95.0 H Lymphocytes % (Manual) 3.0 L Seg Neutrophils # Seg Neutrophils # Man 18.5 H Lymphocytes # (Manual) 0.6 L PT INR ABG pH ABG pO2 ABG HCO3 ABG O2 Saturation ABG Base Excess ABG Hemoglobin Oxyhemoglobin Sodium Potassium Chloride Carbon Dioxide BUN Creatinine 0.6 L Glucose 130 H POC Glucose 149 H Calcium 8.1 L Phosphorus AST ALT Ammonia Albumin 03/03/22 03/03/22 03/04/22 11:13 17:30 00:02 WBC RBC Hgb Hct MCV MCH MCHC RDW Lymph % (Auto) Jay % (Auto) Lymph # (Auto) Jay # (Auto) Seg Neutrophils % Seg Neuts % (Manual) Lymphocytes % (Manual) Seg Neutrophils # Seg Neutrophils # Man Lymphocytes # (Manual) PT INR ABG pH ABG pO2 ABG HCO3 ABG O2 Saturation ABG Base Excess ABG Hemoglobin Oxyhemoglobin Sodium Potassium Chloride Carbon Dioxide BUN Creatinine Glucose POC Glucose 139 H 138 H 157 H Calcium Phosphorus AST ALT Ammonia Albumin 03/04/22 03/04/22 03/04/22 05:32 05:32 05:48 WBC 16.1 H RBC 2.81 L Hgb 9.3 L Hct 28.8 L MCV 102 H MCH 33 H MCHC RDW 16.7 H Lymph % (Auto) Jay % (Auto) Lymph # (Auto) Jay # (Auto) Seg Neutrophils % Seg Neuts % (Manual) Lymphocytes % (Manual) Seg Neutrophils # Seg Neutrophils # Man Lymphocytes # (Manual) PT INR ABG pH ABG pO2 ABG HCO3 ABG O2 Saturation ABG Base Excess ABG Hemoglobin Oxyhemoglobin Sodium Potassium Chloride Carbon Dioxide BUN Creatinine 0.7 L Glucose 135 H POC Glucose 145 H Calcium 8.3 L Phosphorus AST ALT Ammonia Albumin 03/04/22 03/04/22 03/05/22 11:34 16:29 00:28 WBC RBC Hgb Hct MCV MCH MCHC RDW Lymph % (Auto) Jay % (Auto) Lymph # (Auto) Jay # (Auto) Seg Neutrophils % Seg Neuts % (Manual) Lymphocytes % (Manual) Seg Neutrophils # Seg Neutrophils # Man Lymphocytes # (Manual) PT INR ABG pH ABG pO2 ABG HCO3 ABG O2 Saturation ABG Base Excess ABG Hemoglobin Oxyhemoglobin Sodium Potassium Chloride Carbon Dioxide BUN Creatinine Glucose POC Glucose 148 H 140 H 116 H Calcium Phosphorus AST ALT Ammonia Albumin 03/05/22 03/05/22 03/05/22 06:29 11:30 17:38 WBC RBC Hgb Hct MCV MCH MCHC RDW Lymph % (Auto) Jay % (Auto) Lymph # (Auto) Jay # (Auto) Seg Neutrophils % Seg Neuts % (Manual) Lymphocytes % (Manual) Seg Neutrophils # Seg Neutrophils # Man Lymphocytes # (Manual) PT INR ABG pH ABG pO2 ABG HCO3 ABG O2 Saturation ABG Base Excess ABG Hemoglobin Oxyhemoglobin Sodium Potassium Chloride Carbon Dioxide BUN Creatinine Glucose POC Glucose 114 H 114 H 117 H Calcium Phosphorus AST ALT Ammonia Albumin 03/06/22 03/06/22 03/06/22 04:17 04:17 06:06 WBC 13.4 H RBC 2.85 L Hgb 9.4 L Hct 29.0 L MCV 102 H MCH 33 H MCHC RDW 16.4 H Lymph % (Auto) Jay % (Auto) Lymph # (Auto) Jay # (Auto) Seg Neutrophils % Seg Neuts % (Manual) Lymphocytes % (Manual) Seg Neutrophils # Seg Neutrophils # Man Lymphocytes # (Manual) PT INR ABG pH ABG pO2 ABG HCO3 ABG O2 Saturation ABG Base Excess ABG Hemoglobin Oxyhemoglobin Sodium Potassium 3.5 L Chloride Carbon Dioxide 31 H BUN Creatinine 0.6 L Glucose 101 H POC Glucose 106 H Calcium 7.7 L Phosphorus 2.00 L AST ALT Ammonia Albumin 03/06/22 03/06/22 03/07/22 18:04 23:50 05:14 WBC RBC Hgb Hct MCV MCH MCHC RDW Lymph % (Auto) Jay % (Auto) Lymph # (Auto) Jay # (Auto) Seg Neutrophils % Seg Neuts % (Manual) Lymphocytes % (Manual) Seg Neutrophils # Seg Neutrophils # Man Lymphocytes # (Manual) PT INR ABG pH ABG pO2 ABG HCO3 ABG O2 Saturation ABG Base Excess ABG Hemoglobin Oxyhemoglobin Sodium Potassium Chloride Carbon Dioxide BUN Creatinine Glucose POC Glucose 108 H 115 H 116 H Calcium Phosphorus AST ALT Ammonia Albumin 03/07/22 03/07/22 03/08/22 11:42 18:13 04:34 WBC RBC 2.86 L Hgb 9.2 L Hct 29.3 L MCV 103 H MCH MCHC 31 L RDW 16.9 H Lymph % (Auto) Jay % (Auto) Lymph # (Auto) Jay # (Auto) Seg Neutrophils % Seg Neuts % (Manual) Lymphocytes % (Manual) Seg Neutrophils # Seg Neutrophils # Man Lymphocytes # (Manual) PT INR ABG pH ABG pO2 ABG HCO3 ABG O2 Saturation ABG Base Excess ABG Hemoglobin Oxyhemoglobin Sodium Potassium Chloride Carbon Dioxide BUN Creatinine Glucose POC Glucose 123 H 109 H Calcium Phosphorus AST ALT Ammonia Albumin 03/08/22 03/08/22 03/08/22 04:34 11:29 16:34 WBC RBC Hgb Hct MCV MCH MCHC RDW Lymph % (Auto) Jay % (Auto) Lymph # (Auto) Jay # (Auto) Seg Neutrophils % Seg Neuts % (Manual) Lymphocytes % (Manual) Seg Neutrophils # Seg Neutrophils # Man Lymphocytes # (Manual) PT INR ABG pH ABG pO2 ABG HCO3 ABG O2 Saturation ABG Base Excess ABG Hemoglobin Oxyhemoglobin Sodium Potassium Chloride Carbon Dioxide 33 H BUN Creatinine 0.5 L Glucose 109 H POC Glucose 117 H 109 H Calcium 7.6 L Phosphorus AST ALT Ammonia Albumin 03/08/22 03/09/22 03/10/22 23:56 11:15 03:57 WBC RBC 2.99 L Hgb 9.9 L Hct 30.3 L MCV 102 H MCH 33 H MCHC RDW 16.8 H Lymph % (Auto) 13.3 L Jay % (Auto) 12.5 H Lymph # (Auto) Jay # (Auto) 1.3 H Seg Neutrophils % 72.4 H Seg Neuts % (Manual) Lymphocytes % (Manual) Seg Neutrophils # Seg Neutrophils # Man Lymphocytes # (Manual) PT INR ABG pH ABG pO2 ABG HCO3 ABG O2 Saturation ABG Base Excess ABG Hemoglobin Oxyhemoglobin Sodium Potassium Chloride Carbon Dioxide BUN Creatinine Glucose POC Glucose 106 H 110 H Calcium Phosphorus AST ALT Ammonia Albumin 03/10/22 03/10/22 03/10/22 03:57 04:50 16:04 WBC RBC Hgb Hct MCV MCH MCHC RDW Lymph % (Auto) Jay % (Auto) Lymph # (Auto) Jay # (Auto) Seg Neutrophils % Seg Neuts % (Manual) Lymphocytes % (Manual) Seg Neutrophils # Seg Neutrophils # Man Lymphocytes # (Manual) PT INR ABG pH 7.465 H ABG pO2 ABG HCO3 31.9 H ABG O2 Saturation ABG Base Excess 7.3 H ABG Hemoglobin 11.0 L Oxyhemoglobin Sodium Potassium 3.4 L Chloride Carbon Dioxide BUN Creatinine 0.6 L Glucose POC Glucose 115 H Calcium 8.1 L Phosphorus AST ALT Ammonia Albumin 1.9 L 03/11/22 03/11/22 03/11/22 04:02 04:02 04:02 WBC 12.0 H RBC 2.81 L Hgb 9.2 L Hct 29.1 L MCV 103 H MCH 33 H MCHC RDW 17.5 H Lymph % (Auto) Jay % (Auto) Lymph # (Auto) Jay # (Auto) Seg Neutrophils % Seg Neuts % (Manual) Lymphocytes % (Manual) Seg Neutrophils # Seg Neutrophils # Man Lymphocytes # (Manual) PT 16.2 H INR 1.16 H ABG pH ABG pO2 ABG HCO3 ABG O2 Saturation ABG Base Excess ABG Hemoglobin Oxyhemoglobin Sodium Potassium Chloride Carbon Dioxide BUN Creatinine 0.5 L Glucose 104 H POC Glucose Calcium 7.9 L Phosphorus AST ALT Ammonia Albumin 03/11/22 03/11/22 03/11/22 05:10 11:07 16:32 WBC RBC Hgb Hct MCV MCH MCHC RDW Lymph % (Auto) Jay % (Auto) Lymph # (Auto) Jay # (Auto) Seg Neutrophils % Seg Neuts % (Manual) Lymphocytes % (Manual) Seg Neutrophils # Seg Neutrophils # Man Lymphocytes # (Manual) PT INR ABG pH 7.476 H ABG pO2 ABG HCO3 29.7 H ABG O2 Saturation ABG Base Excess 5.7 H ABG Hemoglobin 9.1 L Oxyhemoglobin Sodium Potassium Chloride Carbon Dioxide BUN Creatinine Glucose POC Glucose 108 H 121 H Calcium Phosphorus AST ALT Ammonia Albumin 03/12/22 03/13/22 03/13/22 05:51 06:08 12:02 WBC RBC 2.73 L Hgb 9.0 L Hct 27.5 L MCV 101 H MCH 33 H MCHC RDW 17.2 H Lymph % (Auto) Jay % (Auto) Lymph # (Auto) Jay # (Auto) Seg Neutrophils % Seg Neuts % (Manual) Lymphocytes % (Manual) Seg Neutrophils # Seg Neutrophils # Man Lymphocytes # (Manual) PT INR ABG pH ABG pO2 ABG HCO3 ABG O2 Saturation ABG Base Excess ABG Hemoglobin Oxyhemoglobin Sodium Potassium Chloride Carbon Dioxide BUN Creatinine Glucose POC Glucose 116 H 111 H Calcium Phosphorus AST ALT Ammonia Albumin 03/13/22 03/13/22 03/14/22 12:48 18:17 03:58 WBC RBC 2.97 L Hgb 9.7 L Hct 30.0 L MCV 101 H MCH 33 H MCHC RDW 16.7 H Lymph % (Auto) Jay % (Auto) Lymph # (Auto) Jay # (Auto) Seg Neutrophils % Seg Neuts % (Manual) Lymphocytes % (Manual) Seg Neutrophils # Seg Neutrophils # Man Lymphocytes # (Manual) PT INR ABG pH ABG pO2 ABG HCO3 ABG O2 Saturation ABG Base Excess ABG Hemoglobin Oxyhemoglobin Sodium Potassium Chloride Carbon Dioxide BUN Creatinine Glucose POC Glucose 125 H 114 H Calcium Phosphorus AST ALT Ammonia Albumin 03/14/22 03/14/22 03/14/22 03:58 13:01 16:41 WBC RBC Hgb Hct MCV MCH MCHC RDW Lymph % (Auto) Jay % (Auto) Lymph # (Auto) Jay # (Auto) Seg Neutrophils % Seg Neuts % (Manual) Lymphocytes % (Manual) Seg Neutrophils # Seg Neutrophils # Man Lymphocytes # (Manual) PT INR ABG pH ABG pO2 ABG HCO3 ABG O2 Saturation ABG Base Excess ABG Hemoglobin Oxyhemoglobin Sodium Potassium Chloride Carbon Dioxide BUN Creatinine 0.6 L Glucose POC Glucose 118 H 109 H Calcium 8.2 L Phosphorus AST ALT Ammonia Albumin 03/16/22 03/16/22 05:28 05:28 WBC RBC 2.81 L Hgb 9.1 L Hct 27.8 L MCV 99 H MCH MCHC RDW 17.0 H Lymph % (Auto) Jay % (Auto) Lymph # (Auto) Jay # (Auto) Seg Neutrophils % Seg Neuts % (Manual) Lymphocytes % (Manual) Seg Neutrophils # Seg Neutrophils # Man Lymphocytes # (Manual) PT INR ABG pH ABG pO2 ABG HCO3 ABG O2 Saturation ABG Base Excess ABG Hemoglobin Oxyhemoglobin Sodium Potassium Chloride Carbon Dioxide BUN Creatinine 0.5 L Glucose POC Glucose Calcium 8.2 L Phosphorus AST ALT Ammonia Albumin
--- NOTE | 2022-03-16 13:56 | Progress Note ---
<CODYCARSON ZiaRadha - Last Filed: 03/16/22 13:57> Assessment and Plan Assessment and plan: This is a 51-year-old male with HTN, seizure disorder, Down syndrome, HLD, partial blindness admitted with aspiration pneumonia, probable bronchogenic carcinoma, acute hypoxic respiratory failure and acute encephalopathy Neuro: Acute encephalopathy, h/o seizure disorder, Down syndrome, partial blindness -fent IVP -Reorientation as needed -Maintain sleep-wake cycle -aspiration/seizure precautions -As needed analgesia -CT head showed no acute abnormality -Continue Keppra Cardiac: h/o HTN, HLD -Cardiology consulted, appreciate recommendations -Blood pressure monitoring per protocol -Midodrine stopped initially due to bradycardia now stopped due to SBP 120-140s -Restarted on midodrine Respiratory: Acute hypoxic respiratory failure, ruled out bronchogenic carcinoma -CCM consulted, appreciate recommendations -Intubated on 02/24 with a 8.0 at 23 at the lips but extubated 02/28 -reintubated 02/28 with 8.0 OETT -Vent settings: AC rate 14, TV 360, PEEP 6, FO2 30% -See RT notes for titration -VAP bundle -SPO2 monitoring per protocol -02/18 CTA chest showed no evidence of pulmonary embolism, suspected bronchogenic carcinoma with associated obstruction of the right lower lobe proximal bronchus segment, 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 adenopathy and suspected to left lower lobe metastatic nodule -02/26 Bronch->mucous, no lesion noted -02/27 CT chest showed right mainstem bronchus patent with small amount of interval bronchial fluid which may be mucus (this may account for the appearance of the prior CTA chest fluid-filled airway rather than entering bronchial lesion), previously seen complete left lower lobe since related to bronchial occlusion has significantly improved, there is persistent compressive atelectasis in the right lower lung secondary to the pleural effusion, bilateral pleural effusions, right lung pneumonia -CT neck showed no acute changes -s/p steroids GI: Moderate protein calorie malnutrition -24 hours -350 mL -PPI -NTR consulted for tube feedings -BR: Senokot S : NAD -Monitor intake and output -Renally dose medications -Avoid nephrotoxic medications -Trend BMP ID: Aspiration PNA (resolved), sacral wound -WOCN consulted -Dressing changes per nursing -S/p Rocephin for 5 days (02/19-02/24) -Monitor WBC and temperature curve Endo: NAD -Avoid hypoglycemia -Accu-Cheks every 6 -Avoid hypoglycemia Heme: NAD -Trend CBC -Transfuse hemoglobin less than 7 -SCDs to BLE while in bed The high probability of a clinically significant, sudden or life threatening deterioration of the [resp] system(s) required my full and direct attention, intervention and personal management. The aggregate critical care time was [60] minutes. This time is in addition to time spent performing reported procedures but includes the following: [x] Data Review and interpretation [x] Patient assessment and monitoring of vital signs [x] Documentation [x] Medication orders and management Disposition Plan: icu Total Time Spent with Patient (Minutes): 60 History Interval history: This is a 51-year-old male with HTN, seizure disorder, Down syndrome, HLD, and partial blindness was a resident of the [facility] who presented to emergency department on 02/19 for evaluation of change in mental status. Of note patient w as recently discharged a few weeks ago for a seizure disorder and UTI. Upon arrival to the emergency department patient was noted to be hypoxic with SPO2 in the 80s on a nonrebreather with difficulty breathing. Work-up in the emergency department revealed CXR which showed elevation of the right hemidiaphragm, right lower lung atelectasis and effusion with mild increased pulmonary vascularity but no pneumothorax and CT of the head did not show any acute abnormality. 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 Patient was admitted to the hospitalist service to the floor. Hospital course to date: 02/19/2022. Consult pulmonary for further evaluation and possible bronchoscopy. I suspect patient has component of aspiration pneumonia as well. We will obtain a speech therapy evaluation for swallowing and start empiric antibiotics. Continue O2 supplementation to maintain sats greater than 92%. 02/20/2022. Pulmonary feels that the abnormality seen on CT scan is highly unlikely for a mass given negative chest x-ray 1 month ago and no risk factors. Etiology is likely secondary to aspiration from possibly a foreign body most likely food with atelectasis of the right lower lobe. Bronchoscopy is needed in the case to evaluate to see if lung mass is there vs foreign body, but at this time not able to do because no identifiable person that is able to give consent. Continue aspiration precautions and continue speech therapy evaluation for swallowing. Keep n.p.o. for now 02/21/2022. Patient remains NPO. Consider DHT placement. Follow-up with speech therapy evaluation. Pulmonology to consider bronchoscopy if able to obtain consent. Continue IV antibiotics for aspiration pneumonia 02/22/2022. Patient remains NPO. Consider DHT placement. Follow-up with speech therapy evaluation. Pulmonology to consider bronchoscopy if able to obtain consent. Continue IV antibiotics for aspiration pneumonia 02/23/2022. DHT placed yesterday. TF initiated for nutritional support. Patient currently with strict NPO. Aspiration precautions. Pulmonology to consider bronchoscopy if able to obtain consent. Continue IV antibiotics for aspiration pneumonia 02/24: Patient was transferred to the ICU for further monitoring. This morning patient remained on high flow nasal cannula on 40 L/100% and despite repeated nasotracheal suctioning patient SPO2 remained in the 80s. Patient was placed on nonrebreather and SPO2 increased to upper 80s. Patient was subsequently intubated by anesthesia. Started on sedation. 02/25: Patient remains sedated on fentanyl, potassium and magnesium repleted. IV fluids and amlodipine discontinued. Possible bronchoscopy tomorrow. 02/26: Patient had a bronchoscopy today which showed mucus and no endobronchial lesions or masses. FiO2 was increased to 100 during and postprocedure weaning as tolerated. Repeat CXR is much improved after bronc. Given 1 L LR bolus due to hypotension. No acute events reported overnight. 02/27: Decreased PEEP, will repeat CT of chest. no acute changes overnight. 02/28: Patient was extubated today however had to be be intubated shortly after. Patient ETT looked mispositioned on x-ray and Dr. Alonzo did do a bedside bronc. Patient was briefly hypotensive and on Levophed postintubation however Levophed was quickly titrated off and patient did not require central line. No acute events reported overnight. Will obtain CT neck d/t difficulty intubating. Ethic committee consulted. 03/01: Overnight patient was hypotensive and started on IVF. Patient started on steroids as no air leak noted and hypotension and given 2 L LR 03/02: Overnight patient received bolus per RN report, no orders seen. Continue supportive care. 03/04: MAIDA overnight. Remains stable on the vent. Awaiting on desicion from ethics community for possible trach and PEG. Continue current supportive measures 03/05: MAIDA overnight. Awaiting on desicion from [facility] for possible trach and PEG. Midodrine held yesterday, HR improved. Continue current supportive measures. Daily PSV trial as tolerated per [facility] 03/06: Remains stable on the vent. Continue current supportive measures, daily PSV trial per [facility]. Awaiting on desicion for possible trach and PEG. 03/07: MAIDA overnight, remains stable. Continue daily PSV trial as tolerated. Awaiting on desicion for possible trach and PEG. 03/08: Patient failed PSV trial this am due to tachycardia and increase RR. Continue supportive measures and daily PSV trial as tolerated. Possible discussion with ethics and [facility] on Thursday in regards to medical necessity, may ne ed to consider two physician consent if no one is able to claim responsibility for this patient. 03/09: MAIDA overnight. Continue current supportive measures and daily PSV trail as tolerated. Awaiting on decision for possible trach and PEG, discussion with Ethics possibly tomorrow per [facility]. 03/10: no acute events overnight, PSV today. replete potassium. 03/11: No acute events reported overnight, patient failed PSV yesterday and will repeat today. Hospital to start guardianship process. 03/12: No acute events overnight. PSV today 03/13: Patient given 500ml normal saline and started on midodrine for hypotension. No acute events reported overnight. Failed pressure support again this morning. 03/14: No acute events reported overnight, patient blood pressure seems better therefore midodrine discontinued. RT placed on CPAP need lasted for couple hours. Will remove summers 03/15: Midodrine was restarted yesterday evening for hypotension, Summers catheter not removed due to sacral ulcer and history of retention. Unable to crush Flomax and patient will not tolerate doxazosin given hypotension. Given LR bolus this morning. If blood pressure continues to be borderline after bolus, we will adjust management as needed. CPAP as tolerated 03/16: No acute events reported overnight, patient placed on CPAP trial this morning which he failed. Hospitalist Physical - Constitutional Vitals: Temp Pulse Resp BP Pulse Ox 97.3 F L 88 14 103/51 100 03/16/22 12:00 03/16/22 13:50 03/16/22 13:50 03/16/22 13:00 03/16/22 13:00 General appearance: Present: no acute distress, well-nourished - EENT Eyes: Present: PERRL, EOM intact ENT: poor dentition - Neck Neck: Present: normal ROM - Respiratory Respiratory effort: normal Respiratory: bilateral: diminished - Cardiovascular Rhythm: regular Heart Sounds: Present: S1 & S2. Absent: systolic murmur, diastolic murmur - Extremities Extremities: no ischemia, pulses intact, pulses symmetrical, No edema, normal temperature, normal color Peripheral Pulses: within normal limits - Abdominal General gastrointestinal: soft, non-tender, non-distended, normal bowel sounds - Integumentary Integumentary: Present: warm, dry - Psychiatric Psychiatric: cooperative - Neurologic Neurologic: moves all extremities - Allied Health Allied health notes reviewed: nursing, RT HEART Score - HEART Score Troponin: Troponin T < 0.010 ng/mL (0.00-0.029) 02/18/22 21:02 Results - Labs CBC & Chem 7: 03/16/22 05:28 03/16/22 05:28 Labs: Laboratory Last Values WBC 6.4 K/mm3 (4.5-11.0) 03/16/22 05:28 RBC 2.81 M/mm3 (3.65-5.03) L 03/16/22 05:28 Hgb 9.1 gm/dl (11.8-15.2) L 03/16/22 05:28 Hct 27.8 % (35.5-45.6) L 03/16/22 05:28 MCV 99 fl (84-94) H 03/16/22 05:28 MCH 32 pg (28-32) 03/16/22 05:28 MCHC 33 % (32-34) 03/16/22 05:28 RDW 17.0 % (13.2-15.2) H 03/16/22 05:28 Plt Count 355 K/mm3 (140-440) 03/16/22 05:28 Lymph % (Auto) 13.3 % (13.4-35.0) L 03/10/22 03:57 [place] % (Auto) 12.5 % (0.0-7.3) H 03/10/22 03:57 Eos % (Auto) 1.4 % (0.0-4.3) 03/10/22 03:57 Baso % (Auto) 0.4 % (0.0-1.8) 03/10/22 03:57 Lymph # (Auto) 1.3 K/mm3 (1.2-5.4) 03/10/22 03:57 [place] # (Auto) 1.3 K/mm3 (0.0-0.8) H 03/10/22 03:57 Eos # (Auto) 0.1 K/mm3 (0.0-0.4) 03/10/22 03:57 Baso # (Auto) 0.0 K/mm3 (0.0-0.1) 03/10/22 03:57 Add Manual Diff Complete 03/03/22 03:54 Total Counted 100 03/03/22 03:54 Seg Neutrophils % 72.4 % (40.0-70.0) H 03/10/22 03:57 Seg Neuts % (Manual) 95.0 % (40.0-70.0) H 03/03/22 03:54 Band Neutrophils % 0 % 03/03/22 03:54 Lymphocytes % (Manual) 3.0 % (13.4-35.0) L 03/03/22 03:54 Reactive Lymphs % (Man) 0 % 03/03/22 03:54 Monocytes % (Manual) 2.0 % (0.0-7.3) 03/03/22 03:54 Eosinophils % (Manual) 0 % (0.0-4.3) 03/03/22 03:54 Basophils % (Manual) 0 % (0.0-1.8) 03/03/22 03:54 Metamyelocytes % 0 % 03/03/22 03:54 Myelocytes % 0 % 03/03/22 03:54 Promyelocytes % 0 % 03/03/22 03:54 Blast Cells % 0 % 03/03/22 03:54 Nucleated RBC % Not Reportable 03/03/22 03:54 Seg Neutrophils # 7.4 K/mm3 (1.8-7.7) 03/10/22 03:57 Seg Neutrophils # Man 18.5 K/mm3 (1.8-7.7) H 03/03/22 03:54 Band Neutrophils # 0.0 K/mm3 03/03/22 03:54 Lymphocytes # (Manual) 0.6 K/mm3 (1.2-5.4) L 03/03/22 03:54 Abs React Lymphs (Man) 0.0 K/mm3 03/03/22 03:54 Monocytes # (Manual) 0.4 K/mm3 (0.0-0.8) 03/03/22 03:54 Eosinophils # (Manual) 0.0 K/mm3 (0.0-0.4) 03/03/22 03:54 Basophils # (Manual) 0.0 K/mm3 (0.0-0.1) 03/03/22 03:54 Metamyelocytes # 0.0 K/mm3 03/03/22 03:54 Myelocytes # 0.0 K/mm3 03/03/22 03:54 Promyelocytes # 0.0 K/mm3 03/03/22 03:54 Blast Cells # 0.0 K/mm3 03/03/22 03:54 WBC Morphology Not Reportable 03/03/22 03:54 Hypersegmented Neuts Not Reportable 03/03/22 03:54 Hyposegmented Neuts Not Reportable 03/03/22 03:54 Hypogranular Neuts Not Reportable 03/03/22 03:54 Smudge Cells Not Reportable 03/03/22 03:54 Toxic Granulation Not Reportable 03/03/22 03:54 Toxic Vacuolation Not Reportable 03/03/22 03:54 Dohle Bodies Not Reportable 03/03/22 03:54 Pelger-Huet Anomaly Not Reportable 03/03/22 03:54 Lakshmi Rods Not Reportable 03/03/22 03:54 Platelet Estimate Consistent w auto 03/03/22 03:54 Clumped Platelets Not Reportable 03/03/22 03:54 Plt Clumps, EDTA Not Reportable 03/03/22 03:54 Large Platelets Not Reportable 03/03/22 03:54 Giant Platelets Not Reportable 03/03/22 03:54 Platelet Satelliting Not Reportable 03/03/22 03:54 Plt Morphology Comment Not Reportable 03/03/22 03:54 RBC Morphology Not Reportable 03/03/22 03:54 Dimorphic RBCs Not Reportable 03/03/22 03:54 Polychromasia Not Reportable 03/03/22 03:54 Hypochromasia Not Reportable 03/03/22 03:54 Poikilocytosis Not Reportable 03/03/22 03:54 Anisocytosis 1+ 03/03/22 03:54 Microcytosis Not Reportable 03/03/22 03:54 Macrocytosis Not Reportable 03/03/22 03:54 Spherocytes Not Reportable 03/03/22 03:54 Pappenheimer Bodies Not Reportable 03/03/22 03:54 Sickle Cells Not Reportable 03/03/22 03:54 Target Cells Not Reportable 03/03/22 03:54 Tear Drop Cells Not Reportable 03/03/22 03:54 Ovalocytes Not Reportable 03/03/22 03:54 Helmet Cells Not Reportable 03/03/22 03:54 Orell[place]-Jesup Bodies Not Reportable 03/03/22 03:54 [place] Rings Not Reportable 03/03/22 03:54 [place] Cells Not Reportable 03/03/22 03:54 Bite Cells Not Reportable 03/03/22 03:54 Crenated Cell Not Reportable 03/03/22 03:54 Elliptocytes Not Reportable 03/03/22 03:54 Acanthocytes (Spur) Not Reportable 03/03/22 03:54 Rouleaux Not Reportable 03/03/22 03:54 Hemoglobin C Crystals Not Reportable 03/03/22 03:54 Schistocytes Not Reportable 03/03/22 03:54 Malaria parasites Not Reportable 03/03/22 03:54 Cash Bodies Not Reportable 03/03/22 03:54 Hem Pathologist Commnt No 03/03/22 03:54 PT 16.2 Sec. (12.2-14.9) H 03/11/22 04:02 INR 1.16 (0.87-1.13) H 03/11/22 04:02 ABG pH 7.476 pH Units (7.350-7.450) H 03/11/22 05:10 ABG pCO2 41.2 mm Hg 03/11/22 05:10 ABG pO2 84.0 mm Hg (80.0-90.0) 03/11/22 05:10 ABG HCO3 29.7 mmol/L (20.0-26.0) H 03/11/22 05:10 ABG O2 Saturation 97.1 % (95.0-99.0) 03/11/22 05:10 ABG O2 Content 12.3 (0.0-44) 03/11/22 05:10 ABG Base Excess 5.7 mmol/L (-2.0-3.0) H 03/11/22 05:10 ABG Hemoglobin 9.1 gm/dl (14.0-18.0) L 03/11/22 05:10 ABG Carboxyhemoglobin 1.7 % (0.0-5.0) 03/11/22 05:10 ABG Methemoglobin 0.5 % (0.0-1.5) 03/11/22 05:10 Oxyhemoglobin 95.0 % (95.0-99.0) 03/11/22 05:10 FiO2 30 % 03/11/22 05:10 Sodium 142 mmol/L (137-145) 03/16/22 05:28 Potassium 4.2 mmol/L (3.6-5.0) 03/16/22 05:28 Chloride 105.0 mmol/L (98-107) 03/16/22 05:28 Carbon Dioxide 29 mmol/L (22-30) 03/16/22 05:28 Anion Gap 12 mmol/L 03/16/22 05:28 BUN 17 mg/dL (9-20) 03/16/22 05:28 Creatinine 0.5 mg/dL (0.8-1.3) L 03/16/22 05:28 Estimated GFR > 60 ml/min 03/16/22 05:28 BUN/Creatinine Ratio 34 % 03/16/22 05:28 Glucose 88 mg/dL (75-100) 03/16/22 05:28 POC Glucose 104 mg/dL (70-105) 03/16/22 12:19 Lactic Acid 1.20 mmol/L (0.7-2.0) 02/18/22 21:02 Calcium 8.2 mg/dL (8.4-10.2) L 03/16/22 05:28 Phosphorus 4.10 mg/dL (2.5-4.5) 03/14/22 03:58 Magnesium 2.10 mg/dL (1.7-2.3) 03/14/22 03:58 Total Bilirubin 0.30 mg/dL (0.1-1.2) 03/10/22 03:57 AST 17 units/L (5-40) 03/10/22 03:57 ALT 18 units/L (7-56) 03/10/22 03:57 Alkaline Phosphatase 89 units/L (35-129) 03/10/22 03:57 Ammonia 14.0 umol/L (25-60) L 02/18/22 23:22 Troponin T < 0.010 ng/mL (0.00-0.029) 02/18/22 21:02 Total Protein 6.6 g/dL (6.3-8.2) 03/10/22 03:57 Albumin 1.9 g/dL (3.9-5) L 03/10/22 03:57 Albumin/Globulin Ratio 0.4 % 03/10/22 03:57 Urine Color Dark yellow (Yellow) 02/18/22 Unknown Urine Turbidity Clear (Clear) 02/18/22 Unknown Urine pH 7.0 (5.0-7.0) 02/18/22 Unknown Ur Specific [place] 1.015 (1.003-1.030) 02/18/22 Unknown Urine Protein <15 mg/dl mg/dL (Negative) 02/18/22 Unknown Urine Glucose (UA) Negative mg/dL (Negative) 02/18/22 Unknown Urine Ketones Negative mg/dL (Negative) 02/18/22 Unknown Urine Blood Trace (Negative) 02/18/22 Unknown Urine Nitrite Negative (Negative) 02/18/22 Unknown Urine Bilirubin Negative (Negative) 02/18/22 Unknown Urine Urobilinogen < 2.0 mg/dL (<2.0) 02/18/22 Unknown Ur Leukocyte Esterase Negative (Negative) 02/18/22 Unknown Urine WBC (Auto) 2.0 /HPF (0.0-6.0) 02/18/22 Unknown Urine RBC (Auto) 9.0 /HPF (0.0-6.0) 02/18/22 Unknown Urine Mucus Few /HPF 02/18/22 Unknown Urine Opiates Screen Negative 02/18/22 Unknown Urine Methadone Screen Negative 02/18/22 Unknown Ur Barbiturates Screen Negative 02/18/22 Unknown Ur Phencyclidine Scrn Negative 02/18/22 Unknown Ur Amphetamines Screen Negative 02/18/22 Unknown U Benzodiazepines Scrn Negative 02/18/22 Unknown Urine Cocaine Screen Negative 02/18/22 Unknown U Marijuana (THC) Screen Negative 02/18/22 Unknown Drugs of Abuse Note Disclamer 02/18/22 Unknown Plasma/Serum Alcohol < 0.01 % (0-0.07) 02/18/22 21:02 Summers/IV: Voiding Method Indwelling Catheter Active Medications - Current Medications Current Medications: Generic Name Dose Route Start Last Admin Trade Name Freq PRN Reason Stop Dose Admin Acetaminophen 650 mg 03/03/22 09:00 Acetaminophen 325 Mg/10.15 Ml Oral Liqd Unit Dose FEEDTUBE Q4H PRN Pain, Mild (1-3); TEMP > 100.4 Albuterol 2.5 mg 03/12/22 20:00 03/16/22 13:49 Albuterol 2.5 Mg/3 Ml Nebu IH 2.5 mg Q6HRT LAZARUS Administration Famotidine 20 mg 02/25/22 10:00 03/16/22 09:10 Famotidine 20 Mg Tab FEEDTUBE 20 mg BID LAZARUS Administration Heparin Sodium (Porcine) 5,000 unit 02/19/22 06:00 03/16/22 13:38 Heparin 5,000 Unit/1 Ml Vial SUB-Q 5,000 unit Q8HR LAZARUS Administration Hydrophilic Ointment 1 applic 02/24/22 15:05 Lip Therapy Vaseline TP Q2HR PRN Dry Lips Levetiracetam 500 mg 02/25/22 22:00 03/16/22 09:10 Levetiracetam 500 Mg/5 Ml Oral Liqd FEEDTUBE 500 mg BID LAZARUS Administration Levothyroxine Sodium 25 mcg 02/26/22 06:00 03/16/22 06:18 Levothyroxine 25 Mcg Tab FEEDTUBE 25 mcg QAM@0600 LAZARUS Administration Magnesium Hydroxide 30 ml 02/19/22 02:02 Magnesium Hydroxide (Mom) Oral Liqd Udc PO Q4H PRN Constipation Midodrine 2.5 mg 03/14/22 17:20 03/16/22 12:31 Midodrine 2.5 Mg Tab PO 2.5 mg TID@0800,1200,1600 LAZARUS Administration Multi-Ingred Cream/Lotion/Oil/Oint 1 applic 02/24/22 15:05 Mineral Oil/Petrolatum, White Ophth Oint 3.5 Gm OU Q4HR PRN Dry Eye(s) Ondansetron HCl 4 mg 02/19/22 02:02 Ondansetron 4 Mg/2 Ml Inj IV Q8H PRN Nausea And Vomiting Pravastatin Sodium 40 mg 02/25/22 22:00 03/15/22 21:27 Pravastatin 40 Mg Tab FEEDTUBE 40 mg QHS LAZARUS Administration Senna/Docusate Sodium 1 tab 02/24/22 22:00 03/16/22 09:10 Sennosides/Docusate Sodium 8.6/50 Mg Tab FEEDTUBE 1 tab BID LAZARUS Administration Sodium Chloride 10 ml 02/19/22 10:00 03/16/22 09:11 Sodium Chloride 0.9% 10 Ml Flush Syringe IV 10 ml BID LAZARUS Administration Sodium Chloride 10 ml 02/19/22 02:02 03/03/22 14:21 Sodium Chloride 0.9% 10 Ml Flush Syringe IV 10 ml PRN PRN Administration LINE FLUSH Nutrition/Malnutrition Assess - Dietary Evaluation Nutrition/Malnutrition Findings: Nutrition Notes Start: 02/19/22 14:29 Freq: Status: Active Protocol: Document 03/14/22 14:33 [facility] (Rec: 03/14/22 14:36 [facility] [id number]) Nutrition Notes Initial or Follow up Reassessment Current Diagnosis Hypertension,Respiratory Failure,Hyperlipidemia Other Pertinent Diagnosis Asp pneu, acute encephalopathy , seizure d/o, partial blindness Current Diet TF - Vital AF 1.2 at 50ml/hr Labs/Tests Reviewed Pertinent Medications Reviewed Height 5 ft 3 in Weight 63.2 kg Norris Body Weight (kg) 56.36 BMI 24.7 Weight Status Appropriate Subjective/Other Information Pt remains on vent support; no trach or PEG placed yet. Pt continues to tolerate TF. BM x 1 today. Percent of energy/protein needs met: 90% energy 100% pro Burn Absent Trauma Absent #1 Nutrition Diagnosis Inadequate oral intake Diagnosis Progress(for reassessment Continues documentation) Is patient on ventilator? Yes Is Patient Ambulatory and/or Out of Bed No REE-([facility]-confined to bed) [phone] Calculation Used for Recommendations [facility] Additional Notes Pro needs 1.2-2g/k-126g/ day Fluid needs 1ml/kcal Nutrition Intervention Nutrition Support: Continue Vital AF 1.2 at 50ml/ hr with 75ml water flush q4h. Kcal 1,440 Protein (gm) 90 Carbohydrates (gm) 133 Fat (gm) 65 Fluid (mL) 973 Fiber (gm) 6 Goal #1 TF tolerance Goal #2 TF to meet at least 75% energy and pro needs Follow-Up By: 03/21/22 Additional Comments F/U: stable TF, trach/PEG placement, vent status <SILVIA BUCHANAN - Last Filed: 04/01/22 10:49> History Interval history: I saw and evaluated the patient. I agree with the findings and the plan of care as documented in the Nurse Practitioner's~note, with the following corrections and additions. Hospitalist Physical - Constitutional Vitals: Temp Pulse Resp BP Pulse Ox 97.9 F 71 14 121/68 97 04/01/22 07:09 04/01/22 07:51 04/01/22 07:51 04/01/22 07:43 04/01/22 07:43 HEART Score - HEART Score Troponin: Troponin T < 0.010 ng/mL (0.00-0.029) 02/18/22 21:02 Results - Labs CBC & Chem 7: 03/31/22 03:56 03/31/22 03:56 Labs: Laboratory Last Values WBC 9.7 K/mm3 (4.5-11.0) 03/31/22 03:56 RBC 3.08 M/mm3 (3.65-5.03) L 03/31/22 03:56 Hgb 9.5 gm/dl (11.8-15.2) L 03/31/22 03:56 Hct 30.1 % (35.5-45.6) L 03/31/22 03:56 MCV 98 fl (84-94) H 03/31/22 03:56 MCH 31 pg (28-32) 03/31/22 03:56 MCHC 32 % (32-34) 03/31/22 03:56 RDW 17.7 % (13.2-15.2) H 03/31/22 03:56 Plt Count 331 K/mm3 (140-440) 03/31/22 03:56 Lymph % (Auto) 7.5 % (13.4-35.0) L 03/28/22 04:06 [place] % (Auto) 10.5 % (0.0-7.3) H 03/28/22 04:06 Eos % (Auto) 0.9 % (0.0-4.3) 03/28/22 04:06 Baso % (Auto) 0.4 % (0.0-1.8) 03/28/22 04:06 Lymph # (Auto) 1.1 K/mm3 (1.2-5.4) L 03/28/22 04:06 [place] # (Auto) 1.5 K/mm3 (0.0-0.8) H 03/28/22 04:06 Eos # (Auto) 0.1 K/mm3 (0.0-0.4) 03/28/22 04:06 Baso # (Auto) 0.1 K/mm3 (0.0-0.1) 03/28/22 04:06 Add Manual Diff Complete 03/03/22 03:54 Total Counted 100 03/03/22 03:54 Seg Neutrophils % 80.7 % (40.0-70.0) H 03/28/22 04:06 Seg Neuts % (Manual) 95.0 % (40.0-70.0) H 03/03/22 03:54 Band Neutrophils % 0 % 03/03/22 03:54 Lymphocytes % (Manual) 3.0 % (13.4-35.0) L 03/03/22 03:54 Reactive Lymphs % (Man) 0 % 03/03/22 03:54 Monocytes % (Manual) 2.0 % (0.0-7.3) 03/03/22 03:54 Eosinophils % (Manual) 0 % (0.0-4.3) 03/03/22 03:54 Basophils % (Manual) 0 % (0.0-1.8) 03/03/22 03:54 Metamyelocytes % 0 % 03/03/22 03:54 Myelocytes % 0 % 03/03/22 03:54 Promyelocytes % 0 % 03/03/22 03:54 Blast Cells % 0 % 03/03/22 03:54 Nucleated RBC % Not Reportable 03/03/22 03:54 Seg Neutrophils # 11.4 K/mm3 (1.8-7.7) H 03/28/22 04:06 Seg Neutrophils # Man 18.5 K/mm3 (1.8-7.7) H 03/03/22 03:54 Band Neutrophils # 0.0 K/mm3 03/03/22 03:54 Lymphocytes # (Manual) 0.6 K/mm3 (1.2-5.4) L 03/03/22 03:54 Abs React Lymphs (Man) 0.0 K/mm3 03/03/22 03:54 Monocytes # (Manual) 0.4 K/mm3 (0.0-0.8) 03/03/22 03:54 Eosinophils # (Manual) 0.0 K/mm3 (0.0-0.4) 03/03/22 03:54 Basophils # (Manual) 0.0 K/mm3 (0.0-0.1) 03/03/22 03:54 Metamyelocytes # 0.0 K/mm3 03/03/22 03:54 Myelocytes # 0.0 K/mm3 03/03/22 03:54 Promyelocytes # 0.0 K/mm3 03/03/22 03:54 Blast Cells # 0.0 K/mm3 03/03/22 03:54 WBC Morphology Not Reportable 03/03/22 03:54 Hypersegmented Neuts Not Reportable 03/03/22 03:54 Hyposegmented Neuts Not Reportable 03/03/22 03:54 Hypogranular Neuts Not Reportable 03/03/22 03:54 Smudge Cells Not Reportable 03/03/22 03:54 Toxic Granulation Not Reportable 03/03/22 03:54 Toxic Vacuolation Not Reportable 03/03/22 03:54 Dohle Bodies Not Reportable 03/03/22 03:54 Pelger-Huet Anomaly Not Reportable 03/03/22 03:54 Lakshmi Rods Not Reportable 03/03/22 03:54 Platelet Estimate Consistent w auto 03/03/22 03:54 Clumped Platelets Not Reportable 03/03/22 03:54 Plt Clumps, EDTA Not Reportable 03/03/22 03:54 Large Platelets Not Reportable 03/03/22 03:54 Giant Platelets Not Reportable 03/03/22 03:54 Platelet Satelliting Not Reportable 03/03/22 03:54 Plt Morphology Comment Not Reportable 03/03/22 03:54 RBC Morphology Not Reportable 03/03/22 03:54 Dimorphic RBCs Not Reportable 03/03/22 03:54 Polychromasia Not Reportable 03/03/22 03:54 Hypochromasia Not Reportable 03/03/22 03:54 Poikilocytosis Not Reportable 03/03/22 03:54 Anisocytosis 1+ 03/03/22 03:54 Microcytosis Not Reportable 03/03/22 03:54 Macrocytosis Not Reportable 03/03/22 03:54 Spherocytes Not Reportable 03/03/22 03:54 Pappenheimer Bodies Not Reportable 03/03/22 03:54 Sickle Cells Not Reportable 03/03/22 03:54 Target Cells Not Reportable 03/03/22 03:54 Tear Drop Cells Not Reportable 03/03/22 03:54 Ovalocytes Not Reportable 03/03/22 03:54 Helmet Cells Not Reportable 03/03/22 03:54 Orellana-Jesup Bodies Not Reportable 03/03/22 03:54 [place] Rings Not Reportable 03/03/22 03:54 [place] Cells Not Reportable 03/03/22 03:54 Bite Cells Not Reportable 03/03/22 03:54 Crenated Cell Not Reportable 03/03/22 03:54 Elliptocytes Not Reportable 03/03/22 03:54 Acanthocytes (Spur) Not Reportable 03/03/22 03:54 Rouleaux Not Reportable 03/03/22 03:54 Hemoglobin C Crystals Not Reportable 03/03/22 03:54 Schistocytes Not Reportable 03/03/22 03:54 Malaria parasites Not Reportable 03/03/22 03:54 Cash Bodies Not Reportable 03/03/22 03:54 Hem Pathologist Commnt No 03/03/22 03:54 PT 16.2 Sec. (12.2-14.9) H 03/11/22 04:02 INR 1.16 (0.87-1.13) H 03/11/22 04:02 ABG pH 7.392 pH Units (7.350-7.450) 03/22/22 14:25 ABG pCO2 54.4 mm Hg 03/22/22 14:25 ABG pO2 150.5 mm Hg (80.0-90.0) H 03/22/22 14:25 ABG HCO3 32.4 mmol/L (20.0-26.0) H 03/22/22 14:25 ABG O2 Saturation 98.8 % (95.0-99.0) 03/22/22 14:25 ABG O2 Content 15.8 (0.0-44) 03/22/22 14:25 ABG Base Excess 6.2 mmol/L (-2.0-3.0) H 03/22/22 14:25 ABG Hemoglobin 11.4 gm/dl (14.0-18.0) L 03/22/22 14:25 ABG Carboxyhemoglobin 1.6 % (0.0-5.0) 03/22/22 14:25 ABG Methemoglobin 0.6 % (0.0-1.5) 03/22/22 14:25 Oxyhemoglobin 96.6 % (95.0-99.0) 03/22/22 14:25 FiO2 30 % 03/22/22 14:25 Sodium 135 mmol/L (137-145) L 03/31/22 03:56 Potassium 4.5 mmol/L (3.6-5.0) 03/31/22 03:56 Chloride 97.4 mmol/L (98-107) L 03/31/22 03:56 Carbon Dioxide 31 mmol/L (22-30) H 03/31/22 03:56 Anion Gap 11 mmol/L 03/31/22 03:56 BUN 18 mg/dL (9-20) 03/31/22 03:56 Creatinine 0.5 mg/dL (0.8-1.3) L 03/31/22 03:56 Estimated GFR > 60 ml/min 03/31/22 03:56 BUN/Creatinine Ratio 36 % 03/31/22 03:56 Glucose 102 mg/dL (75-100) H 03/31/22 03:56 POC Glucose 118 mg/dL (70-105) H 04/01/22 00:09 Lactic Acid 1.20 mmol/L (0.7-2.0) 02/18/22 21:02 Calcium 8.8 mg/dL (8.4-10.2) 03/31/22 03:56 Phosphorus 3.50 mg/dL (2.5-4.5) 03/20/22 04:09 Magnesium 2.00 mg/dL (1.7-2.3) 03/20/22 04:09 Total Bilirubin 0.30 mg/dL (0.1-1.2) 03/10/22 03:57 AST 17 units/L (5-40) 03/10/22 03:57 ALT 18 units/L (7-56) 03/10/22 03:57 Alkaline Phosphatase 89 units/L (35-129) 03/10/22 03:57 Ammonia 14.0 umol/L (25-60) L 02/18/22 23:22 Troponin T < 0.010 ng/mL (0.00-0.029) 02/18/22 21:02 Total Protein 6.6 g/dL (6.3-8.2) 03/10/22 03:57 Albumin 1.9 g/dL (3.9-5) L 03/10/22 03:57 Albumin/Globulin Ratio 0.4 % 03/10/22 03:57 Urine Color Yellow (Yellow) 03/27/22 08:36 Urine Turbidity Cloudy (Clear) 03/27/22 08:36 Urine pH 7.0 (5.0-7.0) 02/18/22 Unknown Ur Specific [place] 1.015 (1.003-1.030) 02/18/22 Unknown Specific [place] (Man) 1.020 (1.003-1.030) 03/27/22 08:36 Urine Protein <15 mg/dl mg/dL (Negative) 02/18/22 Unknown Ur Protein (Man) 1+ mg/dL (Negative) 03/27/22 08:36 Urine Glucose (UA) Negative mg/dL (Negative) 02/18/22 Unknown Urine Ketones Negative mg/dL (Negative) 02/18/22 Unknown Ur Ketones (Man) Negative (Negative) 03/27/22 08:36 Urine Blood Trace (Negative) 02/18/22 Unknown Urine Nitrite Negative (Negative) 02/18/22 Unknown Ur Nitrite (Man) Negative (Negative) 03/27/22 08:36 Ur Reducing Substances Not Reportable 03/27/22 08:36 Urine Bilirubin Negative (Negative) 02/18/22 Unknown Urine Bilirubin (Man) Negative (Negative) 03/27/22 08:36 Urine Ictotest Not Reportable 03/27/22 08:36 Urine Urobilinogen < 2.0 mg/dL (<2.0) 02/18/22 Unknown Ur Leukocyte Esterase Negative (Negative) 02/18/22 Unknown Leukocyte Esterase (Man) Moderate (Negative) 03/27/22 08:36 Urine WBC (Auto) > 182.0 /HPF (0.0-6.0) H 03/27/22 08:36 Urine RBC (Auto) 9.0 /HPF (0.0-6.0) 03/27/22 08:36 U Epithel Cells (Auto) < 1.0 /HPF (0-13.0) 03/27/22 08:36 Urine RBC (Manual) 1+ (Negative) 03/27/22 08:36 Urine Mucus Few /HPF 03/27/22 08:36 Urine Yeast (Budding) 2+ /HPF 03/27/22 08:36 Urine Opiates Screen Negative 02/18/22 Unknown Urine Methadone Screen Negative 02/18/22 Unknown Ur Barbiturates Screen Negative 02/18/22 Unknown Ur Phencyclidine Scrn Negative 02/18/22 Unknown Ur Amphetamines Screen Negative 02/18/22 Unknown U Benzodiazepines Scrn Negative 02/18/22 Unknown Urine Cocaine Screen Negative 02/18/22 Unknown U Marijuana (THC) Screen Negative 02/18/22 Unknown Drugs of Abuse Note Disclamer 02/18/22 Unknown Plasma/Serum Alcohol < 0.01 % (0-0.07) 02/18/22 21:02 Summers/IV: Voiding Method Indwelling Catheter Active Medications - Current Medications Current Medications: Generic Name Dose Route Start Last Admin Trade Name Freq PRN Reason Stop Dose Admin Acetaminophen 650 mg 03/03/22 09:00 Acetaminophen 325 Mg/10.15 Ml Oral Liqd Unit Dose FEEDTUBE Q4H PRN Pain, Mild (1-3); TEMP > 100.4 Albuterol 2.5 mg 03/12/22 20:00 04/01/22 07:50 Albuterol 2.5 Mg/3 Ml Nebu IH 2.5 mg Q6HRT LAZARUS Administration Famotidine 20 mg 02/25/22 10:00 04/01/22 09:20 Famotidine 20 Mg Tab FEEDTUBE 20 mg BID LAZARUS Administration Heparin Sodium (Porcine) 5,000 unit 02/19/22 06:00 04/01/22 05:22 Heparin 5,000 Unit/1 Ml Vial SUB-Q 5,000 unit Q8HR LAZARUS Administration Levetiracetam 500 mg 02/25/22 22:00 04/01/22 09:20 Levetiracetam 500 Mg/5 Ml Oral Liqd FEEDTUBE 500 mg BID LAZARUS Administration Levothyroxine Sodium 25 mcg 02/26/22 06:00 04/01/22 05:22 Levothyroxine 25 Mcg Tab FEEDTUBE 25 mcg QAM@0600 LAZARUS Administration Magnesium Hydroxide 30 ml 02/19/22 02:02 Magnesium Hydroxide (Mom) Oral Liqd Udc PO Q4H PRN Constipation Midodrine 2.5 mg 03/19/22 12:00 04/01/22 09:20 Midodrine 2.5 Mg Tab FEEDTUBE 2.5 mg TID@0800,1200,1600 LAZARUS Administration Multi-Ingred Cream/Lotion/Oil/Oint 1 applic 02/24/22 15:05 Mineral Oil/Petrolatum, White Ophth Oint 3.5 Gm OU Q4HR PRN Dry Eye(s) Ondansetron HCl 4 mg 02/19/22 02:02 Ondansetron 4 Mg/2 Ml Inj IV Q8H PRN Nausea And Vomiting Pravastatin Sodium 40 mg 02/25/22 22:00 03/31/22 21:01 Pravastatin 40 Mg Tab FEEDTUBE 40 mg QHS LAZARUS Administration Senna/Docusate Sodium 1 tab 02/24/22 22:00 03/31/22 23:35 Sennosides/Docusate Sodium 8.6/50 Mg Tab FEEDTUBE 1 tab BID LAZARUS Administration Sodium Chloride 10 ml 02/19/22 10:00 04/01/22 09:20 Sodium Chloride 0.9% 10 Ml Flush Syringe IV 10 ml BID LAZARUS Administration Sodium Chloride 10 ml 02/19/22 02:02 03/03/22 14:21 Sodium Chloride 0.9% 10 Ml Flush Syringe IV 10 ml PRN PRN Administration LINE FLUSH Nutrition/Malnutrition Assess - Dietary Evaluation Nutrition/Malnutrition Findings: Nutrition Notes Start: 02/19/22 14:29 Freq: Status: Active Protocol: Document 03/31/22 14:18 IVAN (Rec: 03/31/22 14:23 IVAN [id number]) Nutrition Notes Initial or Follow up Reassessment Current Diagnosis Hypertension,Respiratory Failure,Hyperlipidemia Other Pertinent Diagnosis Asp pneu, acute encephalopathy , seizure d/o, partial blindness Current Diet TF - Promote at 65ml/hr Labs/Tests Na 135 CO2 - 31 Pertinent Medications Reviewed Height 5 ft 3 in Weight 63.2 kg [place] Body Weight (kg) 56.36 BMI 24.7 Subjective/Other Information Pt remains on vent support; still awaiting decision on guardianship for trach/PEG placement. Observed Promote infusing at 50ml/hr; RN informed of goal rate. BM x 1 on yesterday. Percent of energy/protein needs met: 75% energy 99% pro Burn Absent Trauma Absent #1 Nutrition Diagnosis Inadequate oral intake Diagnosis Progress(for reassessment Continues documentation) Is patient on ventilator? Yes Is Patient Ambulatory and/or Out of Bed No REE-([facility]-confined to bed) [phone] Calculation Used for Recommendations [facility] Additional Notes Pro needs 1.2-2g/k-126g/ day Fluid needs 1ml/kcal Nutrition Intervention Nutrition Support: Continue Promote to goal rate of 65ml/hr. Provide 50ml water flush q4h. Kcal 1,560 Protein (gm) 98 Carbohydrates (gm) 203 Fat (gm) 41 Fluid (mL) 1,309 Fiber (gm) 0 Goal #1 TF tolerance Goal #2 TF to meet 75%-100% energy and pro needs Goal #3 Wound healing Follow-Up By: 04/04/22 Additional Comments F/U: TF goal rate/tolerance
[2022-03-16] MEDS: PRAVASTATIN 40 MG TAB FEEDTUBE SCH (21:27)
[2022-03-17] MEDS: ALBUTEROL 2.5 MG/3 ML NEBU IH SCH ×4 (02:53→20:10)
[2022-03-17] MEDS: LEVOTHYROXINE 25 MCG TAB FEEDTUBE SCH (06:28)
[2022-03-17] MEDS: HEPARIN 5,000 UNIT/1 ML VIAL SUB-Q SCH ×3 (06:28→21:54)
[2022-03-17] MEDS: SENNOSIDES/DOCUSATE SODIUM 8.6/50 MG TAB FEEDTUBE SCH ×2 (10:12→21:54)
[2022-03-17] MEDS: MIDODRINE 2.5 MG TAB PO SCH ×3 (10:12→16:25)
[2022-03-17] MEDS: levETIRAcetam 500 MG/5 ML ORAL LIQD FEEDTUBE SCH ×2 (10:12→21:54)
[2022-03-17] MEDS: FAMOTIDINE 20 MG TAB FEEDTUBE SCH ×2 (10:12→21:54)
--- NOTE | 2022-03-17 10:41 | Progress Note ---
Assessment and Plan 61 y/o male with abnormal CT of chest. 03/17/22: Day 21 of intubation. Still awaiting some form of decision maker for trach and peg placement. Guarded prognosis. 03/16/22: Day 20 of intubation. BP stable. Continue midodrine. Awaiting emergency guardianship from Court to obtain consent for trach and peg. Guarded prognosis. 03/15/22: Day 19 of intubation. BP now is marginal more regularly. Will give an additional liter bolus of LR now. May need to increase Midodrine back to 5. Needs trach in order to be safely weaned from ventilator. Will need peg tube placement in addition to trach. Prognosis remains guarded. Continue PSV trials as tolerated. 03/14/22: Day 18 of intubation. Vitals stable and mental status is unchanged. Still in need of tracheostomy as well as peg tube placement. No guardian appointed yet. 03/13/22: Day 17 of intubation. Agree with bolus and restarting of midodrine. was stopped previously secondary to bradycardia. If patient spikes temp, will culture blood and urine and repeat CXR. Continue daily PSV trials to assess ability for vent liberation. Continues to need trach however no family/guardian to provide consent. Guarded prognosis. 03/12/22: Day 16 of intubation. Following up with hospital in regards to guardian. Continue supportive measures. Guarded prognosis. 03/11/22: hospital now attempting to find emergency guardian to have consent for trach as ethics committee cannot comment on this matter so unable to help. Until then will remain intubated orally. Failed PSV yesterday, will continue to attempt on daily basis. Unfortunate situation. Guarded prognosis. 03/10/22: Today nuñez day 14 of intubation. Given patient's mental state and increased risk of aspiration, the likelihood of conventional extubation with success is very very slim and the patient has already failed this in an extremely short period of time (less than 1 hour). I suspect that he will fail again if tried and could create more difficult reintubation as he was a difficult reintubation on his failed extubation attempt. To prevent further decline and potential complications of prolonged mechanical ventilation, will discuss with ethics and the hospital to use 2 physician consent to obtain trach and peg for this patient with hopes of liberating him from the mechanical ventilator. he has very minimal vent requirements but as been stated several times above, he continues to aspirate and failed conventional extubation almost immediately. Will consult surgery today. Dr. Mancia is prepared to sign consent as well as myself. Hopeful surgery will be on board with this. Continue s upportive care for now. Attempt daily PSV trials. 03/07/22: Daily PSV trials as tolerated. Still no one to step up as adult friend. patient has now been intubated since 02/24/22 and is approaching the time period in which prolonged mechanical ventilation could lead to significant complications that could be detrimental to health (infection, stenosis, malacia etc). Will discuss again with ethics but in regards to medical necessity, may need to consider two physician consent if no one is able to claim responsibility for this patient. He is a full code and we must work in his best interest to prevent further harm. Continue supportive measures but he is not a candidate for conventional extubation given his mental state, despite being on minimal support. He has already failed this before. 03/06/22: PSV trials daily. Will discuss with RT. Spoke with ethics. Plan in place and awaiting on news from [facility] and [facility]. Continue supportive measures. Patient has been intubated since 02/24/22 and is approaching the 2 week shadi of intubation will need to make decisions soon to avoid unnecessary complications related to prolonged intubation. 03/05/22: Will follow up with ethics today. Awaiting some guidance about consent for trach and peg. This is a medical necessity to liberate patient from mechanical ventilation. Continue supportive measures. Ok with daily PSV trials 03/04/22: Follow up with ethics later this afternoon. Spoke with RT and patient does have cuff leak, will stop steroids. Stopping midodrine as BP is stable and bradycardia likely from this. 03/03/22: Await ethics eval. CM has spoken with state as well. Daily cuff leaks. Will start to wean steroids tomorrow. Midodrine can cause bradycardia. If continues or worsens will stop. Guarded prognosis. 03/02/22: Continue supportive measures. Await ethics consult before surgery consult for trach and peg. no further need for fluid boluses. Will continue stress dose steroids but have daily air leak checks by RT. Still will need trach, will not attempt extubation again. Guarded prognosis. 03/01/22: Patient is having increased urine output. This could be the cause of new onset hypotension. Will bolus 2 more liters of LR now and reassess. If this continues may need to work up for SIADH including repeat head CT. Follow up ethics review of case. Will need trach for ventilator liberation. Overall prognosis remains guarded. 02/28/22: Will obtain CT neck, noncontrast to look for airway edema or other possible etiologies for failure. Needs ethics consult as given patient's mental state, inability to clear secretions appropriately, will need trach now that he has failed extubation. However he has no family and no POA so no one to give consent. Continue supportive measures. Guarded prognosis. 02/27/22: Continue improvement of oxygenation. Will drop PEEP down today with goal of being at 6 by in the morning. Will repeat CT scan to confirm improvement as no endobronchial lesion was seen, but also to make sure no parenchymal mass. There was no evidence of extrinsic compression during bronch. Likely extubation tomorrow post CT. 02/26/22: Repeat CXR now. Wean Vent as tolerated. Hopeful extubation soon. Mucous removed. NO ENDOBRONCHIAL LESION/MASS 02/25/22: Bronch tentatively planned for tomorrow with therapeutic scope. Awaiting GI lab to give a time. NPO after midnight. Continue high PEEP 02/24/22: WIll attempt to bronch tomorrow morning. NPO after midnight. Just received word from GI lab they are not able to do bronch tomorrow. Cancel NPO order. Continue to feed patient. Repeat ABG in AM along with CXR. 02/21/22: No new pulm recs for today. Please obtain repeat CXR likely on Thursday. If patient happens to get worse, likely not a candidate for bipap given his weak cough and mental state and inability to communicate. If worsens and requires intubation, will bronch then under emergent circumstances if no POA or family is able to be located. Continue CPT. Will discuss with RT about NT suctioning. 02/20/22: Saw speech while on the floor. Would like patient to be NPO now. Discussed with nurse on floor and with IMS. Same recs pulm way as yesterday. Would benefit from bronch if able to get consent as this is not emergent. Continue CPT and q shift NT suctioning. Reviewed admission in the past and of note, patient was recently admitted last month and had a CXR done on the 29 of January that was normal. Given this patient's medical history and the history that I obtained from the nursing staff that at the custodial he was eating solid foods, I suspect that this is aspiration, possibly of a foreign body (most likely food) with atelectasis of the right lower lobe. It is highly unlikely that a mass evolved in size in less than a months time and patient, besides age, has no real risk factors for lung carcinoma. Discussed with the nurse and unfortunately there is no identifiable person that is able to give consent. Bronchoscopy is needed in the case to evaluate to see if lung mass is there vs foreign body, but at this time not able to do. In the meanwhile will recommend the following. 1. Will order CPT with neb therapy 3x daily 2. Suggest maybe NT suctioning q shift. May use nasal trumpet, however do not leave this device in the patient 3. Aspiration precautions 4. Consider speech eval to assess swallowing. Will continue to follow. CCT 31 minutes. Subjective Date of service: 03/17/22 Principal diagnosis: f/u Acute respiratory failure Interval history: No acute events. Objective Vital Signs - 12hr 03/16/22 03/16/22 03/17/22 23:00 23:48 00:00 Temperature 98 F Pulse Rate 77 66 71 Pulse Rate [ Bilateral Throughout] Pulse Rate [ 74 From Monitor] Respiratory 15 14 Rate Respiratory Rate [Bilateral Throughout] Blood Pressure 121/65 100/57 119/58 O2 Sat by Pulse 98 99 99 Oximetry 03/17/22 03/17/22 03/17/22 01:00 02:00 02:54 Temperature Pulse Rate 73 68 Pulse Rate [ 84 Bilateral Throughout] Pulse Rate [ From Monitor] Respiratory 16 14 Rate Respiratory 20 Rate [Bilateral Throughout] Blood Pressure 119/58 116/65 O2 Sat by Pulse 99 99 Oximetry 03/17/22 03/17/22 03/17/22 02:58 03:00 04:00 Temperature 98.8 F Pulse Rate 79 81 64 Pulse Rate [ Bilateral Throughout] Pulse Rate [ 55 L From Monitor] Respiratory 18 14 Rate Respiratory Rate [Bilateral Throughout] Blood Pressure 110/68 110/68 98/54 O2 Sat by Pulse 99 99 100 Oximetry 03/17/22 03/17/22 03/17/22 05:00 06:00 07:00 Temperature Pulse Rate 65 75 74 Pulse Rate [ Bilateral Throughout] Pulse Rate [ From Monitor] Respiratory 14 14 14 Rate Respiratory Rate [Bilateral Throughout] Blood Pressure 101/60 101/60 131/87 O2 Sat by Pulse 100 100 99 Oximetry 03/17/22 03/17/22 03/17/22 07:12 08:00 09:00 Temperature 98.5 F 98.5 F Pulse Rate 70 74 Pulse Rate [ Bilateral Throughout] Pulse Rate [ 68 From Monitor] Respiratory 14 14 Rate Respiratory Rate [Bilateral Throughout] Blood Pressure 116/73 113/76 O2 Sat by Pulse 99 100 Oximetry 03/17/22 10:00 Temperature Pulse Rate 65 Pulse Rate [ Bilateral Throughout] Pulse Rate [ From Monitor] Respiratory 14 Rate Respiratory Rate [Bilateral Throughout] Blood Pressure 113/76 O2 Sat by Pulse 99 Oximetry Constitutional: alert, other (critically ill on ventilator) Eyes: non-icteric ENT: oropharynx moist Neck: supple Effort: normal Ascultation: Bilateral: diminished breath sounds, rhonchi Cardiovascular: regular rate and rhythm (no mrg) Gastrointestinal: normoactive bowel sounds, soft, non-tender (on o2 vest in place), non-distended Integumentary: normal Extremities: no cyanosis, no edema Neurologic: other (awake) Psychiatric: other (unable to assess) CBC and BMP: 03/16/22 05:28 03/16/22 05:28 ABG, PT/INR, D-dimer: ABG ABG pH 7.476 pH Units (7.350-7.450) H 03/11/22 05:10 ABG pCO2 41.2 mm Hg 03/11/22 05:10 ABG pO2 84.0 mm Hg (80.0-90.0) 03/11/22 05:10 ABG O2 Saturation 97.1 % (95.0-99.0) 03/11/22 05:10 PT/INR, D-dimer PT 16.2 Sec. (12.2-14.9) H 03/11/22 04:02 INR 1.16 (0.87-1.13) H 03/11/22 04:02 Abnormal lab findings: Abnormal Labs 02/18/22 02/18/22 02/18/22 19:34 21:02 21:02 WBC RBC Hgb Hct MCV 101 H MCH 34 H MCHC RDW 16.1 H Lymph % (Auto) [place] % (Auto) 12.4 H Lymph # (Auto) [place] # (Auto) 1.2 H Seg Neutrophils % 73.0 H Seg Neuts % (Manual) Lymphocytes % (Manual) Seg Neutrophils # Seg Neutrophils # Man Lymphocytes # (Manual) PT 16.9 H INR 1.20 H ABG pH ABG pO2 ABG HCO3 ABG O2 Saturation ABG Base Excess ABG Hemoglobin Oxyhemoglobin Sodium Potassium Chloride Carbon Dioxide BUN Creatinine Glucose POC Glucose 116 H Calcium Phosphorus AST ALT Ammonia Albumin 02/18/22 02/18/22 02/18/22 21:02 22:45 23:22 WBC RBC Hgb Hct MCV MCH MCHC RDW Lymph % (Auto) [place] % (Auto) Lymph # (Auto) [place] # (Auto) Seg Neutrophils % Seg Neuts % (Manual) Lymphocytes % (Manual) Seg Neutrophils # Seg Neutrophils # Man Lymphocytes # (Manual) PT INR ABG pH ABG pO2 55.6 L ABG HCO3 28.4 H ABG O2 Saturation 91.5 L ABG Base Excess 3.8 H ABG Hemoglobin 13.2 L Oxyhemoglobin 89.6 L Sodium Potassium 5.1 H Chloride Carbon Dioxide BUN Creatinine Glucose 102 H POC Glucose Calcium Phosphorus AST 48 H ALT 64 H Ammonia 14.0 L Albumin 2.7 L 02/20/22 02/20/22 02/23/22 04:59 04:59 06:29 WBC 11.4 H RBC Hgb Hct MCV 103 H MCH 33 H MCHC RDW 16.5 H Lymph % (Auto) 5.5 L [place] % (Auto) 12.1 H Lymph # (Auto) 0.6 L [place] # (Auto) 1.4 H Seg Neutrophils % 81.4 H Seg Neuts % (Manual) Lymphocytes % (Manual) Seg Neutrophils # 9.2 H Seg Neutrophils # Man Lymphocytes # (Manual) PT INR ABG pH ABG pO2 ABG HCO3 ABG O2 Saturation ABG Base Excess ABG Hemoglobin Oxyhemoglobin Sodium Potassium Chloride Carbon Dioxide BUN Creatinine Glucose POC Glucose 113 H Calcium 8.2 L Phosphorus AST ALT Ammonia Albumin 02/23/22 02/23/22 02/24/22 11:22 16:10 00:02 WBC RBC Hgb Hct MCV MCH MCHC RDW Lymph % (Auto) [place] % (Auto) Lymph # (Auto) [place] # (Auto) Seg Neutrophils % Seg Neuts % (Manual) Lymphocytes % (Manual) Seg Neutrophils # Seg Neutrophils # Man Lymphocytes # (Manual) PT INR ABG pH ABG pO2 ABG HCO3 ABG O2 Saturation ABG Base Excess ABG Hemoglobin Oxyhemoglobin Sodium Potassium Chloride Carbon Dioxide BUN Creatinine Glucose POC Glucose 108 H 115 H 109 H Calcium Phosphorus AST ALT Ammonia Albumin 02/24/22 02/24/22 02/24/22 11:05 11:05 13:20 WBC RBC 3.55 L Hgb Hct MCV 100 H MCH 34 H MCHC RDW 15.6 H Lymph % (Auto) [place] % (Auto) Lymph # (Auto) [place] # (Auto) Seg Neutrophils % Seg Neuts % (Manual) Lymphocytes % (Manual) Seg Neutrophils # Seg Neutrophils # Man Lymphocytes # (Manual) PT INR ABG pH ABG pO2 ABG HCO3 ABG O2 Saturation ABG Base Excess ABG Hemoglobin Oxyhemoglobin Sodium 146 H Potassium 3.2 L D Chloride 108.4 H Carbon Dioxide BUN Creatinine 0.5 L Glucose POC Glucose 111 H Calcium 7.9 L Phosphorus 2.20 L AST ALT Ammonia Albumin 02/24/22 02/24/22 02/24/22 16:30 17:03 20:25 WBC RBC Hgb Hct MCV MCH MCHC RDW Lymph % (Auto) [place] % (Auto) Lymph # (Auto) [place] # (Auto) Seg Neutrophils % Seg Neuts % (Manual) Lymphocytes % (Manual) Seg Neutrophils # Seg Neutrophils # Man Lymphocytes # (Manual) PT INR ABG pH 7.319 L ABG pO2 65.3 L ABG HCO3 31.3 H ABG O2 Saturation 92.2 L ABG Base Excess 3.8 H ABG Hemoglobin 12.0 L Oxyhemoglobin 90.3 L Sodium Potassium Chloride 107.9 H Carbon Dioxide BUN 8 L Creatinine 0.4 L Glucose POC Glucose 108 H Calcium 7.6 L Phosphorus 4.60 H D AST ALT Ammonia Albumin 02/25/22 02/25/22 02/25/22 04:12 04:12 05:05 WBC RBC 3.07 L Hgb 10.2 L Hct 31.5 L MCV 103 H MCH 33 H MCHC RDW 15.6 H Lymph % (Auto) [place] % (Auto) Lymph # (Auto) [place] # (Auto) Seg Neutrophils % Seg Neuts % (Manual) Lymphocytes % (Manual) Seg Neutrophils # Seg Neutrophils # Man Lymphocytes # (Manual) PT INR ABG pH ABG pO2 ABG HCO3 32.5 H ABG O2 Saturation ABG Base Excess 5.6 H ABG Hemoglobin 10.8 L Oxyhemoglobin 94.8 L Sodium Potassium 3.5 L Chloride 107.7 H Carbon Dioxide BUN Creatinine 0.5 L Glucose POC Glucose Calcium 7.0 L Phosphorus AST ALT Ammonia Albumin 02/25/22 02/25/22 02/26/22 12:05 18:33 00:07 WBC RBC Hgb Hct MCV MCH MCHC RDW Lymph % (Auto) [place] % (Auto) Lymph # (Auto) [place] # (Auto) Seg Neutrophils % Seg Neuts % (Manual) Lymphocytes % (Manual) Seg Neutrophils # Seg Neutrophils # Man Lymphocytes # (Manual) PT INR ABG pH ABG pO2 ABG HCO3 ABG O2 Saturation ABG Base Excess ABG Hemoglobin Oxyhemoglobin Sodium Potassium Chloride Carbon Dioxide BUN Creatinine Glucose POC Glucose 127 H 125 H 114 H Calcium Phosphorus AST ALT Ammonia Albumin 02/26/22 02/26/22 02/26/22 03:30 04:42 11:34 WBC RBC Hgb Hct MCV MCH MCHC RDW Lymph % (Auto) [place] % (Auto) Lymph # (Auto) [place] # (Auto) Seg Neutrophils % Seg Neuts % (Manual) Lymphocytes % (Manual) Seg Neutrophils # Seg Neutrophils # Man Lymphocytes # (Manual) PT INR ABG pH ABG pO2 143.2 H ABG HCO3 33.2 H ABG O2 Saturation ABG Base Excess 6.5 H ABG Hemoglobin 9.4 L Oxyhemoglobin Sodium Potassium Chloride Carbon Dioxide 32 H BUN Creatinine 0.7 L Glucose POC Glucose 114 H Calcium 8.0 L Phosphorus AST ALT Ammonia Albumin 02/26/22 02/26/22 02/27/22 18:17 23:37 04:19 WBC 13.7 H RBC 2.78 L Hgb 9.3 L Hct 28.5 L MCV 103 H MCH 33 H MCHC RDW 16.3 H Lymph % (Auto) [place] % (Auto) Lymph # (Auto) [place] # (Auto) Seg Neutrophils % Seg Neuts % (Manual) Lymphocytes % (Manual) Seg Neutrophils # Seg Neutrophils # Man Lymphocytes # (Manual) PT INR ABG pH ABG pO2 ABG HCO3 ABG O2 Saturation ABG Base Excess ABG Hemoglobin Oxyhemoglobin Sodium Potassium Chloride Carbon Dioxide BUN Creatinine Glucose POC Glucose 111 H 117 H Calcium Phosphorus AST ALT Ammonia Albumin 02/27/22 02/27/22 02/27/22 04:19 04:35 05:27 WBC RBC Hgb Hct MCV MCH MCHC RDW Lymph % (Auto) [place] % (Auto) Lymph # (Auto) [place] # (Auto) Seg Neutrophils % Seg Neuts % (Manual) Lymphocytes % (Manual) Seg Neutrophils # Seg Neutrophils # Man Lymphocytes # (Manual) PT INR ABG pH ABG pO2 96.3 H ABG HCO3 34.9 H ABG O2 Saturation ABG Base Excess 8.1 H ABG Hemoglobin Oxyhemoglobin Sodium Potassium Chloride Carbon Dioxide 31 H BUN Creatinine 0.6 L Glucose 107 H POC Glucose 133 H Calcium 7.8 L Phosphorus AST ALT Ammonia Albumin 02/27/22 02/27/22 02/28/22 11:15 23:35 03:38 WBC 13.3 H RBC 3.05 L Hgb 10.2 L Hct 30.7 L MCV 101 H MCH 33 H MCHC RDW 16.1 H Lymph % (Auto) [place] % (Auto) Lymph # (Auto) [place] # (Auto) Seg Neutrophils % Seg Neuts % (Manual) Lymphocytes % (Manual) Seg Neutrophils # Seg Neutrophils # Man Lymphocytes # (Manual) PT INR ABG pH ABG pO2 ABG HCO3 ABG O2 Saturation ABG Base Excess ABG Hemoglobin Oxyhemoglobin Sodium Potassium Chloride Carbon Dioxide BUN Creatinine Glucose POC Glucose 129 H 122 H Calcium Phosphorus AST ALT Ammonia Albumin 02/28/22 02/28/22 02/28/22 04:50 05:30 09:30 WBC RBC Hgb Hct MCV MCH MCHC RDW Lymph % (Auto) [place] % (Auto) Lymph # (Auto) [place] # (Auto) Seg Neutrophils % Seg Neuts % (Manual) Lymphocytes % (Manual) Seg Neutrophils # Seg Neutrophils # Man Lymphocytes # (Manual) PT INR ABG pH 7.451 H 7.488 H ABG pO2 77.0 L ABG HCO3 37.1 H 34.6 H ABG O2 Saturation ABG Base Excess 11.5 H 10.1 H ABG Hemoglobin 10.1 L 10.0 L Oxyhemoglobin Sodium Potassium Chloride Carbon Dioxide BUN Creatinine Glucose POC Glucose 121 H Calcium Phosphorus AST ALT Ammonia Albumin 02/28/22 02/28/22 03/01/22 11:36 23:07 04:27 WBC 12.5 H RBC 2.85 L Hgb 9.5 L Hct 28.6 L MCV 101 H MCH 33 H MCHC RDW 15.7 H Lymph % (Auto) [place] % (Auto) Lymph # (Auto) [place] # (Auto) Seg Neutrophils % Seg Neuts % (Manual) Lymphocytes % (Manual) Seg Neutrophils # Seg Neutrophils # Man Lymphocytes # (Manual) PT INR ABG pH ABG pO2 ABG HCO3 ABG O2 Saturation ABG Base Excess ABG Hemoglobin Oxyhemoglobin Sodium Potassium Chloride Carbon Dioxide BUN Creatinine Glucose POC Glucose 112 H 107 H Calcium Phosphorus AST ALT Ammonia Albumin 03/01/22 03/01/22 03/01/22 04:27 05:05 11:29 WBC RBC Hgb Hct MCV MCH MCHC RDW Lymph % (Auto) [place] % (Auto) Lymph # (Auto) [place] # (Auto) Seg Neutrophils % Seg Neuts % (Manual) Lymphocytes % (Manual) Seg Neutrophils # Seg Neutrophils # Man Lymphocytes # (Manual) PT INR ABG pH ABG pO2 ABG HCO3 ABG O2 Saturation ABG Base Excess ABG Hemoglobin Oxyhemoglobin Sodium 147 H D Potassium Chloride Carbon Dioxide 34 H BUN Creatinine 0.6 L Glucose 128 H POC Glucose 119 H 121 H Calcium 7.9 L Phosphorus AST ALT Ammonia Albumin 03/01/22 03/01/22 03/02/22 16:15 23:57 05:18 WBC RBC Hgb Hct MCV MCH MCHC RDW Lymph % (Auto) [place] % (Auto) Lymph # (Auto) [place] # (Auto) Seg Neutrophils % Seg Neuts % (Manual) Lymphocytes % (Manual) Seg Neutrophils # Seg Neutrophils # Man Lymphocytes # (Manual) PT INR ABG pH ABG pO2 110.5 H ABG HCO3 33.0 H ABG O2 Saturation ABG Base Excess 7.4 H ABG Hemoglobin 8.6 L Oxyhemoglobin Sodium Potassium Chloride Carbon Dioxide BUN Creatinine Glucose POC Glucose 134 H 140 H Calcium Phosphorus AST ALT Ammonia Albumin 03/02/22 03/02/22 03/02/22 05:53 09:04 09:04 WBC 15.0 H RBC 3.00 L Hgb 9.7 L Hct 30.7 L MCV 102 H MCH MCHC RDW 16.6 H Lymph % (Auto) [place] % (Auto) Lymph # (Auto) [place] # (Auto) Seg Neutrophils % Seg Neuts % (Manual) Lymphocytes % (Manual) Seg Neutrophils # Seg Neutrophils # Man Lymphocytes # (Manual) PT INR ABG pH ABG pO2 ABG HCO3 ABG O2 Saturation ABG Base Excess ABG Hemoglobin Oxyhemoglobin Sodium Potassium Chloride Carbon Dioxide 31 H BUN Creatinine 0.6 L Glucose 157 H POC Glucose 158 H Calcium 7.9 L Phosphorus AST ALT Ammonia Albumin 03/02/22 03/02/22 03/02/22 11:36 16:25 23:17 WBC RBC Hgb Hct MCV MCH MCHC RDW Lymph % (Auto) [place] % (Auto) Lymph # (Auto) [place] # (Auto) Seg Neutrophils % Seg Neuts % (Manual) Lymphocytes % (Manual) Seg Neutrophils # Seg Neutrophils # Man Lymphocytes # (Manual) PT INR ABG pH ABG pO2 ABG HCO3 ABG O2 Saturation ABG Base Excess ABG Hemoglobin Oxyhemoglobin Sodium Potassium Chloride Carbon Dioxide BUN Creatinine Glucose POC Glucose 160 H 132 H 157 H Calcium Phosphorus AST ALT Ammonia Albumin 03/03/22 03/03/22 03/03/22 03:54 03:54 05:27 WBC 19.5 H RBC 2.79 L Hgb 9.0 L Hct 28.6 L MCV 102 H MCH MCHC RDW 16.2 H Lymph % (Auto) [place] % (Auto) Lymph # (Auto) [place] # (Auto) Seg Neutrophils % Seg Neuts % (Manual) 95.0 H Lymphocytes % (Manual) 3.0 L Seg Neutrophils # Seg Neutrophils # Man 18.5 H Lymphocytes # (Manual) 0.6 L PT INR ABG pH ABG pO2 ABG HCO3 ABG O2 Saturation ABG Base Excess ABG Hemoglobin Oxyhemoglobin Sodium Potassium Chloride Carbon Dioxide BUN Creatinine 0.6 L Glucose 130 H POC Glucose 149 H Calcium 8.1 L Phosphorus AST ALT Ammonia Albumin 03/03/22 03/03/22 03/04/22 11:13 17:30 00:02 WBC RBC Hgb Hct MCV MCH MCHC RDW Lymph % (Auto) [place] % (Auto) Lymph # (Auto) [place] # (Auto) Seg Neutrophils % Seg Neuts % (Manual) Lymphocytes % (Manual) Seg Neutrophils # Seg Neutrophils # Man Lymphocytes # (Manual) PT INR ABG pH ABG pO2 ABG HCO3 ABG O2 Saturation ABG Base Excess ABG Hemoglobin Oxyhemoglobin Sodium Potassium Chloride Carbon Dioxide BUN Creatinine Glucose POC Glucose 139 H 138 H 157 H Calcium Phosphorus AST ALT Ammonia Albumin 03/04/22 03/04/22 03/04/22 05:32 05:32 05:48 WBC 16.1 H RBC 2.81 L Hgb 9.3 L Hct 28.8 L MCV 102 H MCH 33 H MCHC RDW 16.7 H Lymph % (Auto) [place] % (Auto) Lymph # (Auto) [place] # (Auto) Seg Neutrophils % Seg Neuts % (Manual) Lymphocytes % (Manual) Seg Neutrophils # Seg Neutrophils # Man Lymphocytes # (Manual) PT INR ABG pH ABG pO2 ABG HCO3 ABG O2 Saturation ABG Base Excess ABG Hemoglobin Oxyhemoglobin Sodium Potassium Chloride Carbon Dioxide BUN Creatinine 0.7 L Glucose 135 H POC Glucose 145 H Calcium 8.3 L Phosphorus AST ALT Ammonia Albumin 03/04/22 03/04/22 03/05/22 11:34 16:29 00:28 WBC RBC Hgb Hct MCV MCH MCHC RDW Lymph % (Auto) [place] % (Auto) Lymph # (Auto) [place] # (Auto) Seg Neutrophils % Seg Neuts % (Manual) Lymphocytes % (Manual) Seg Neutrophils # Seg Neutrophils # Man Lymphocytes # (Manual) PT INR ABG pH ABG pO2 ABG HCO3 ABG O2 Saturation ABG Base Excess ABG Hemoglobin Oxyhemoglobin Sodium Potassium Chloride Carbon Dioxide BUN Creatinine Glucose POC Glucose 148 H 140 H 116 H Calcium Phosphorus AST ALT Ammonia Albumin 03/05/22 03/05/22 03/05/22 06:29 11:30 17:38 WBC RBC Hgb Hct MCV MCH MCHC RDW Lymph % (Auto) [place] % (Auto) Lymph # (Auto) [place] # (Auto) Seg Neutrophils % Seg Neuts % (Manual) Lymphocytes % (Manual) Seg Neutrophils # Seg Neutrophils # Man Lymphocytes # (Manual) PT INR ABG pH ABG pO2 ABG HCO3 ABG O2 Saturation ABG Base Excess ABG Hemoglobin Oxyhemoglobin Sodium Potassium Chloride Carbon Dioxide BUN Creatinine Glucose POC Glucose 114 H 114 H 117 H Calcium Phosphorus AST ALT Ammonia Albumin 03/06/22 03/06/22 03/06/22 04:17 04:17 06:06 WBC 13.4 H RBC 2.85 L Hgb 9.4 L Hct 29.0 L MCV 102 H MCH 33 H MCHC RDW 16.4 H Lymph % (Auto) [place] % (Auto) Lymph # (Auto) [place] # (Auto) Seg Neutrophils % Seg Neuts % (Manual) Lymphocytes % (Manual) Seg Neutrophils # Seg Neutrophils # Man Lymphocytes # (Manual) PT INR ABG pH ABG pO2 ABG HCO3 ABG O2 Saturation ABG Base Excess ABG Hemoglobin Oxyhemoglobin Sodium Potassium 3.5 L Chloride Carbon Dioxide 31 H BUN Creatinine 0.6 L Glucose 101 H POC Glucose 106 H Calcium 7.7 L Phosphorus 2.00 L AST ALT Ammonia Albumin 03/06/22 03/06/22 03/07/22 18:04 23:50 05:14 WBC RBC Hgb Hct MCV MCH MCHC RDW Lymph % (Auto) [place] % (Auto) Lymph # (Auto) [place] # (Auto) Seg Neutrophils % Seg Neuts % (Manual) Lymphocytes % (Manual) Seg Neutrophils # Seg Neutrophils # Man Lymphocytes # (Manual) PT INR ABG pH ABG pO2 ABG HCO3 ABG O2 Saturation ABG Base Excess ABG Hemoglobin Oxyhemoglobin Sodium Potassium Chloride Carbon Dioxide BUN Creatinine Glucose POC Glucose 108 H 115 H 116 H Calcium Phosphorus AST ALT Ammonia Albumin 03/07/22 03/07/22 03/08/22 11:42 18:13 04:34 WBC RBC 2.86 L Hgb 9.2 L Hct 29.3 L MCV 103 H MCH MCHC 31 L RDW 16.9 H Lymph % (Auto) [place] % (Auto) Lymph # (Auto) [place] # (Auto) Seg Neutrophils % Seg Neuts % (Manual) Lymphocytes % (Manual) Seg Neutrophils # Seg Neutrophils # Man Lymphocytes # (Manual) PT INR ABG pH ABG pO2 ABG HCO3 ABG O2 Saturation ABG Base Excess ABG Hemoglobin Oxyhemoglobin Sodium Potassium Chloride Carbon Dioxide BUN Creatinine Glucose POC Glucose 123 H 109 H Calcium Phosphorus AST ALT Ammonia Albumin 03/08/22 03/08/22 03/08/22 04:34 11:29 16:34 WBC RBC Hgb Hct MCV MCH MCHC RDW Lymph % (Auto) [place] % (Auto) Lymph # (Auto) [place] # (Auto) Seg Neutrophils % Seg Neuts % (Manual) Lymphocytes % (Manual) Seg Neutrophils # Seg Neutrophils # Man Lymphocytes # (Manual) PT INR ABG pH ABG pO2 ABG HCO3 ABG O2 Saturation ABG Base Excess ABG Hemoglobin Oxyhemoglobin Sodium Potassium Chloride Carbon Dioxide 33 H BUN Creatinine 0.5 L Glucose 109 H POC Glucose 117 H 109 H Calcium 7.6 L Phosphorus AST ALT Ammonia Albumin 03/08/22 03/09/2222 23:56 11:15 03:57 WBC RBC 2.99 L Hgb 9.9 L Hct 30.3 L MCV 102 H MCH 33 H MCHC RDW 16.8 H Lymph % (Auto) 13.3 L [place] % (Auto) 12.5 H Lymph # (Auto) [place] # (Auto) 1.3 H Seg Neutrophils % 72.4 H Seg Neuts % (Manual) Lymphocytes % (Manual) Seg Neutrophils # Seg Neutrophils # Man Lymphocytes # (Manual) PT INR ABG pH ABG pO2 ABG HCO3 ABG O2 Saturation ABG Base Excess ABG Hemoglobin Oxyhemoglobin Sodium Potassium Chloride Carbon Dioxide BUN Creatinine Glucose POC Glucose 106 H 110 H Calcium Phosphorus AST ALT Ammonia Albumin 03/10/22 03/10/22 03/10/22 03:57 04:50 16:04 WBC RBC Hgb Hct MCV MCH MCHC RDW Lymph % (Auto) [place] % (Auto) Lymph # (Auto) [place] # (Auto) Seg Neutrophils % Seg Neuts % (Manual) Lymphocytes % (Manual) Seg Neutrophils # Seg Neutrophils # Man Lymphocytes # (Manual) PT INR ABG pH 7.465 H ABG pO2 ABG HCO3 31.9 H ABG O2 Saturation ABG Base Excess 7.3 H ABG Hemoglobin 11.0 L Oxyhemoglobin Sodium Potassium 3.4 L Chloride Carbon Dioxide BUN Creatinine 0.6 L Glucose POC Glucose 115 H Calcium 8.1 L Phosphorus AST ALT Ammonia Albumin 1.9 L 03/11/22 03/11/22 03/11/22 04:02 04:02 04:02 WBC 12.0 H RBC 2.81 L Hgb 9.2 L Hct 29.1 L MCV 103 H MCH 33 H MCHC RDW 17.5 H Lymph % (Auto) [place] % (Auto) Lymph # (Auto) [place] # (Auto) Seg Neutrophils % Seg Neuts % (Manual) Lymphocytes % (Manual) Seg Neutrophils # Seg Neutrophils # Man Lymphocytes # (Manual) PT 16.2 H INR 1.16 H ABG pH ABG pO2 ABG HCO3 ABG O2 Saturation ABG Base Excess ABG Hemoglobin Oxyhemoglobin Sodium Potassium Chloride Carbon Dioxide BUN Creatinine 0.5 L Glucose 104 H POC Glucose Calcium 7.9 L Phosphorus AST ALT Ammonia Albumin 03/11/22 03/11/22 03/11/22 05:10 11:07 16:32 WBC RBC Hgb Hct MCV MCH MCHC RDW Lymph % (Auto) [place] % (Auto) Lymph # (Auto) [place] # (Auto) Seg Neutrophils % Seg Neuts % (Manual) Lymphocytes % (Manual) Seg Neutrophils # Seg Neutrophils # Man Lymphocytes # (Manual) PT INR ABG pH 7.476 H ABG pO2 ABG HCO3 29.7 H ABG O2 Saturation ABG Base Excess 5.7 H ABG Hemoglobin 9.1 L Oxyhemoglobin Sodium Potassium Chloride Carbon Dioxide BUN Creatinine Glucose POC Glucose 108 H 121 H Calcium Phosphorus AST ALT Ammonia Albumin 03/12/22 03/13/22 03/13/22 05:51 06:08 12:02 WBC RBC 2.73 L Hgb 9.0 L Hct 27.5 L MCV 101 H MCH 33 H MCHC RDW 17.2 H Lymph % (Auto) [place] % (Auto) Lymph # (Auto) [place] # (Auto) Seg Neutrophils % Seg Neuts % (Manual) Lymphocytes % (Manual) Seg Neutrophils # Seg Neutrophils # Man Lymphocytes # (Manual) PT INR ABG pH ABG pO2 ABG HCO3 ABG O2 Saturation ABG Base Excess ABG Hemoglobin Oxyhemoglobin Sodium Potassium Chloride Carbon Dioxide BUN Creatinine Glucose POC Glucose 116 H 111 H Calcium Phosphorus AST ALT Ammonia Albumin 03/13/22 03/13/22 03/14/22 12:48 18:17 03:58 WBC RBC 2.97 L Hgb 9.7 L Hct 30.0 L MCV 101 H MCH 33 H MCHC RDW 16.7 H Lymph % (Auto) [place] % (Auto) Lymph # (Auto) [place] # (Auto) Seg Neutrophils % Seg Neuts % (Manual) Lymphocytes % (Manual) Seg Neutrophils # Seg Neutrophils # Man Lymphocytes # (Manual) PT INR ABG pH ABG pO2 ABG HCO3 ABG O2 Saturation ABG Base Excess ABG Hemoglobin Oxyhemoglobin Sodium Potassium Chloride Carbon Dioxide BUN Creatinine Glucose POC Glucose 125 H 114 H Calcium Phosphorus AST ALT Ammonia Albumin 03/14/22 03/14/22 03/14/22 03:58 13:01 16:41 WBC RBC Hgb Hct MCV MCH MCHC RDW Lymph % (Auto) [place] % (Auto) Lymph # (Auto) [place] # (Auto) Seg Neutrophils % Seg Neuts % (Manual) Lymphocytes % (Manual) Seg Neutrophils # Seg Neutrophils # Man Lymphocytes # (Manual) PT INR ABG pH ABG pO2 ABG HCO3 ABG O2 Saturation ABG Base Excess ABG Hemoglobin Oxyhemoglobin Sodium Potassium Chloride Carbon Dioxide BUN Creatinine 0.6 L Glucose POC Glucose 118 H 109 H Calcium 8.2 L Phosphorus AST ALT Ammonia Albumin 03/16/22 03/16/22 05:28 05:28 WBC RBC 2.81 L Hgb 9.1 L Hct 27.8 L MCV 99 H MCH MCHC RDW 17.0 H Lymph % (Auto) [place] % (Auto) Lymph # (Auto) [place] # (Auto) Seg Neutrophils % Seg Neuts % (Manual) Lymphocytes % (Manual) Seg Neutrophils # Seg Neutrophils # Man Lymphocytes # (Manual) PT INR ABG pH ABG pO2 ABG HCO3 ABG O2 Saturation ABG Base Excess ABG Hemoglobin Oxyhemoglobin Sodium Potassium Chloride Carbon Dioxide BUN Creatinine 0.5 L Glucose POC Glucose Calcium 8.2 L Phosphorus AST ALT Ammonia Albumin
--- NOTE | 2022-03-17 12:27 | Progress Note ---
<CODYCARSON ZiaRadha - Last Filed: 03/17/22 12:23> Assessment and Plan Assessment and plan: This is a 51-year-old male with HTN, seizure disorder, Down syndrome, HLD, partial blindness admitted with aspiration pneumonia, probable bronchogenic carcinoma, acute hypoxic respiratory failure and acute encephalopathy Neuro: Acute encephalopathy, h/o seizure disorder, Down syndrome, partial blindness -fent IVP -Reorientation as needed -Maintain sleep-wake cycle -aspiration/seizure precautions -As needed analgesia -CT head showed no acute abnormality -Continue Keppra Cardiac: h/o HTN, HLD -Cardiology consulted, appreciate recommendations -Blood pressure monitoring per protocol -Midodrine stopped initially due to bradycardia now stopped due to SBP 120-140s -Restarted on midodrine, continue to monitor Respiratory: Acute hypoxic respiratory failure, ruled out bronchogenic carcinoma -CCM consulted, appreciate recommendations -Intubated on 02/24 with a 8.0 at 23 at the lips but extubated 02/28 -reintubated 02/28 with 8.0 OETT -Vent settings: AC rate 14, TV 360, PEEP 6, FO2 30% -See RT notes for titration -VAP bundle -SPO2 monitoring per protocol -02/18 CTA chest showed no evidence of pulmonary embolism, suspected bronchogenic carcinoma with associated obstruction of the right lower lobe proximal bronchus segment, 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 adenopathy and suspected to left lower lobe metastatic nodule -02/26 Bronch->mucous, no lesion noted -02/27 CT chest showed right mainstem bronchus patent with small amount of interval bronchial fluid which may be mucus (this may account for the appearance of the prior CTA chest fluid-filled airway rather than entering bronchial lesion), previously seen complete left lower lobe since related to bronchial occlusion has significantly improved, there is persistent compressive atelectasis in the right lower lung secondary to the pleural effusion, bilateral pleural effusions, right lung pneumonia -CT neck showed no acute changes -s/p steroids GI: Moderate protein calorie malnutrition -24 hours -50 mL -PPI -NTR consulted for tube feedings -BR: Senokot S : NAD -Monitor intake and output -Renally dose medications -Avoid nephrotoxic medications -Trend BMP ID: Aspiration PNA (resolved), sacral wound -WOCN consulted -Dressing changes per nursing -S/p Rocephin for 5 days (02/19-02/24) -Monitor WBC and temperature curve Endo: NAD -Avoid hypoglycemia -Accu-Cheks every 6 -Avoid hypoglycemia Heme: NAD -Trend CBC -Transfuse hemoglobin less than 7 -SCDs to BLE while in bed The high probability of a clinically significant, sudden or life threatening deterioration of the [resp] system(s) required my full and direct attention, intervention and personal management. The aggregate critical care time was [60] minutes. This time is in addition to time spent performing reported procedures but includes the following: [x] Data Review and interpretation [x] Patient assessment and monitoring of vital signs [x] Documentation [x] Medication orders and management Disposition Plan: icu Total Time Spent with Patient (Minutes): 60 History Interval history: This is a 51-year-old male with HTN, seizure disorder, Down syndrome, HLD, and partial blindness was a resident of the [facility] who presented to emergency department on 02/19 for evaluation of change in mental status. Of note patient was recently discharged a few weeks ago for a seizure disorder and UTI. Upon arrival to the emergency department patient was noted to be hypoxic with SPO2 in the 80s on a nonrebreather with difficulty breathing. Work-up in the emergency department revealed CXR which showed elevation of the right hemidiaphragm, right lower lung atelectasis and effusion with mild increased pulmonary vascularity but no pneumothorax and CT of the head did not show any acute abnormality. 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 Patient was admitted to the hospitalist service to the floor. Hospital course to date: 02/19/2022. Consult pulmonary for further evaluation and possible bronchoscopy. I suspect patient has component of aspiration pneumonia as well. We will obtain a speech therapy evaluation for swallowing and start empiric antibiotics. Continue O2 supplementation to maintain sats greater than 92%. 02/20/2022. Pulmonary feels that the abnormality seen on CT scan is highly unlikely for a mass given negative chest x-ray 1 month ago and no risk factors. Etiology is likely secondary to aspiration from possibly a foreign body most likely food with atelectasis of the right lower lobe. Bronchoscopy is needed in the case to evaluate to see if lung mass is there vs foreign body, but at this time not able to do because no identifiable person that is able to give consent. Continue aspiration precautions and continue speech therapy evaluation for swallowing. Keep n.p.o. for now 02/21/2022. Patient remains NPO. Consider DHT placement. Follow-up with speech therapy evaluation. Pulmonology to consider bronchoscopy if able to obtain consent. Continue IV antibiotics for aspiration pneumonia 02/22/2022. Patient remains NPO. Consider DHT placement. Follow-up with speech therapy evaluation. Pulmonology to consider bronchoscopy if able to obtain consent. Continue IV antibiotics for aspiration pneumonia 02/23/2022. DHT placed yesterday. TF initiated for nutritional support. Patient currently with strict NPO. Aspiration precautions. Pulmonology to consider bronchoscopy if able to obtain consent. Continue IV antibiotics for aspiration pneumonia 02/24: Patient was transferred to the ICU for further monitoring. This morning patient remained on high flow nasal cannula on 40 L/100% and despite repeated nasotracheal suctioning patient SPO2 remained in the 80s. Patient was placed on nonrebreather and SPO2 increased to upper 80s. Patient was subsequently intubated by anesthesia. Started on sedation. 02/25: Patient remains sedated on fentanyl, potassium and magnesium repleted. IV fluids and amlodipine discontinued. Possible bronchoscopy tomorrow. 02/26: Patient had a bronchoscopy today which showed mucus and no endobronchial lesions or masses. FiO2 was increased to 100 during and postprocedure weaning as tolerated. Repeat CXR is much improved after bronc. Given 1 L LR bolus due to hypotension. No acute events reported overnight. 02/27: Decreased PEEP, will repeat CT of chest. no acute changes overnight. 02/28: Patient was extubated today however had to be be intubated shortly after. Patient ETT looked mispositioned on x-ray and Dr. Alonzo did do a bedside bronc. Patient was briefly hypotensive and on Levophed postintubation however Levophed was quickly titrated off and patient did not require central line. No acute events reported overnight. Will obtain CT neck d/t difficulty intubating. Ethic committee consulted. 03/01: Overnight patient was hypotensive and started on IVF. Patient started on steroids as no air leak noted and hypotension and given 2 L LR 03/02: Overnight patient received bolus per RN report, no orders seen. Continue supportive care. 03/04: MAIDA overnight. Remains stable on the vent. Awaiting on desicion from ethics community for possible trach and PEG. Continue current supportive measures 03/05: MAIDA overnight. Awaiting on desicion from [facility] for possible trach and PEG. Midodrine held yesterday, HR improved. Continue current supportive measures. Daily PSV trial as tolerated per [facility] 03/06: Remains stable on the vent. Continue current supportive measures, daily PS V trial per [facility]. Awaiting on desicion for possible trach and PEG. 03/07: MAIDA overnight, remains stable. Continue daily PSV trial as tolerated. Awaiting on desicion for possible trach and PEG. 03/08: Patient failed PSV trial this am due to tachycardia and increase RR. Continue supportive measures and daily PSV trial as tolerated. Possible discussion with ethics and [facility] on Thursday in regards to medical necessity, may need to consider two physician consent if no one is able to claim responsibility for this patient. 03/09: MAIDA overnight. Continue current supportive measures and daily PSV trail as tolerated. Awaiting on decision for possible trach and PEG, discussion with Ethics possibly tomorrow per [facility]. 03/10: no acute events overnight, PSV today. replete potassium. 03/11: No acute events reported overnight, patient failed PSV yesterday and will repeat today. Hospital to start guardianship process. 03/12: No acute events overnight. PSV today 03/13: Patient given 500ml normal saline and started on midodrine for hypotension. No acute events reported overnight. Failed pressure support again this morning. 03/14: No acute events reported overnight, patient blood pressure seems better therefore midodrine discontinued. RT placed on CPAP need lasted for couple hours. Will remove summers 03/15: Midodrine was restarted yesterday evening for hypotension, Summers catheter not removed due to sacral ulcer and history of retention. Unable to crush Flomax and patient will not tolerate doxazosin given hypotension. Given LR bolus this morning. If blood pressure continues to be borderline after bolus, we will adjust management as needed. CPAP as tolerated 03/16: No acute events reported overnight, patient placed on CPAP trial this morning which he failed. 03/17: RT attempted PSV which he failed again today. No acute events reported overnight. Hospitalist Physical - Constitutional Vitals: Temp Pulse Resp BP Pulse Ox 97.2 F L 63 14 96/44 100 03/17/22 11:43 03/17/22 12:11 03/17/22 12:00 03/17/22 12:11 03/17/22 12:11 General appearance: Present: no acute distress, well-nourished - EENT Eyes: Present: PERRL ENT: poor dentition - Neck Neck: Present: normal ROM - Respiratory Respiratory effort: normal Respiratory: bilateral: diminished, rhonchi - Cardiovascular Rhythm: regular Heart Sounds: Present: S1 & S2. Absent: systolic murmur, diastolic murmur - Extremities Extremities: no ischemia, pulses intact, pulses symmetrical, No edema, normal temperature, normal color Peripheral Pulses: within normal limits - Abdominal General gastrointestinal: soft, non-tender, non-distended, normal bowel sounds - Integumentary Integumentary: Present: warm, dry - Neurologic Neurologic: moves all extremities - Allied Health Allied health notes reviewed: nursing, RT, social work HEART Score - HEART Score Troponin: Troponin T < 0.010 ng/mL (0.00-0.029) 02/18/22 21:02 Results - Labs CBC & Chem 7: 03/16/22 05:28 03/16/22 05:28 Labs: Laboratory Last Values WBC 6.4 K/mm3 (4.5-11.0) 03/16/22 05:28 RBC 2.81 M/mm3 (3.65-5.03) L 03/16/22 05:28 Hgb 9.1 gm/dl (11.8-15.2) L 03/16/22 05:28 Hct 27.8 % (35.5-45.6) L 03/16/22 05:28 MCV 99 fl (84-94) H 03/16/22 05:28 MCH 32 pg (28-32) 03/16/22 05:28 MCHC 33 % (32-34) 03/16/22 05:28 RDW 17.0 % (13.2-15.2) H 03/16/22 05:28 Plt Count 355 K/mm3 (140-440) 03/16/22 05:28 Lymph % (Auto) 13.3 % (13.4-35.0) L 03/10/22 03:57 Karnes % (Auto) 12.5 % (0.0-7.3) H 03/10/22 03:57 Eos % (Auto) 1.4 % (0.0-4.3) 03/10/22 03:57 Baso % (Auto) 0.4 % (0.0-1.8) 03/10/22 03:57 Lymph # (Auto) 1.3 K/mm3 (1.2-5.4) 03/10/22 03:57 Karnes # (Auto) 1.3 K/mm3 (0.0-0.8) H 03/10/22 03:57 Eos # (Auto) 0.1 K/mm3 (0.0-0.4) 03/10/22 03:57 Baso # (Auto) 0.0 K/mm3 (0.0-0.1) 03/10/22 03:57 Add Manual Diff Complete 03/03/22 03:54 Total Counted 100 03/03/22 03:54 Seg Neutrophils % 72.4 % (40.0-70.0) H 03/10/22 03:57 Seg Neuts % (Manual) 95.0 % (40.0-70.0) H 03/03/22 03:54 Band Neutrophils % 0 % 03/03/22 03:54 Lymphocytes % (Manual) 3.0 % (13.4-35.0) L 03/03/22 03:54 Reactive Lymphs % (Man) 0 % 03/03/22 03:54 Monocytes % (Manual) 2.0 % (0.0-7.3) 03/03/22 03:54 Eosinophils % (Manual) 0 % (0.0-4.3) 03/03/22 03:54 Basophils % (Manual) 0 % (0.0-1.8) 03/03/22 03:54 Metamyelocytes % 0 % 03/03/22 03:54 Myelocytes % 0 % 03/03/22 03:54 Promyelocytes % 0 % 03/03/22 03:54 Blast Cells % 0 % 03/03/22 03:54 Nucleated RBC % Not Reportable 03/03/22 03:54 Seg Neutrophils # 7.4 K/mm3 (1.8-7.7) 03/10/22 03:57 Seg Neutrophils # Man 18.5 K/mm3 (1.8-7.7) H 03/03/22 03:54 Band Neutrophils # 0.0 K/mm3 03/03/22 03:54 Lymphocytes # (Manual) 0.6 K/mm3 (1.2-5.4) L 03/03/22 03:54 Abs React Lymphs (Man) 0.0 K/mm3 03/03/22 03:54 Monocytes # (Manual) 0.4 K/mm3 (0.0-0.8) 03/03/22 03:54 Eosinophils # (Manual) 0.0 K/mm3 (0.0-0.4) 03/03/22 03:54 Basophils # (Manual) 0.0 K/mm3 (0.0-0.1) 03/03/22 03:54 Metamyelocytes # 0.0 K/mm3 03/03/22 03:54 Myelocytes # 0.0 K/mm3 03/03/22 03:54 Promyelocytes # 0.0 K/mm3 03/03/22 03:54 Blast Cells # 0.0 K/mm3 03/03/22 03:54 WBC Morphology Not Reportable 03/03/22 03:54 Hypersegmented Neuts Not Reportable 03/03/22 03:54 Hyposegmented Neuts Not Reportable 03/03/22 03:54 Hypogranular Neuts Not Reportable 03/03/22 03:54 Smudge Cells Not Reportable 03/03/22 03:54 Toxic Granulation Not Reportable 03/03/22 03:54 Toxic Vacuolation Not Reportable 03/03/22 03:54 Dohle Bodies Not Reportable 03/03/22 03:54 Pelger-Huet Anomaly Not Reportable 03/03/22 03:54 Lakshmi Rods Not Reportable 03/03/22 03:54 Platelet Estimate Consistent w auto 03/03/22 03:54 Clumped Platelets Not Reportable 03/03/22 03:54 Plt Clumps, EDTA Not Reportable 03/03/22 03:54 Large Platelets Not Reportable 03/03/22 03:54 Giant Platelets Not Reportable 03/03/22 03:54 Platelet Satelliting Not Reportable 03/03/22 03:54 Plt Morphology Comment Not Reportable 03/03/22 03:54 RBC Morphology Not Reportable 03/03/22 03:54 Dimorphic RBCs Not Reportable 03/03/22 03:54 Polychromasia Not Reportable 03/03/22 03:54 Hypochromasia Not Reportable 03/03/22 03:54 Poikilocytosis Not Reportable 03/03/22 03:54 Anisocytosis 1+ 03/03/22 03:54 Microcytosis Not Reportable 03/03/22 03:54 Macrocytosis Not Reportable 03/03/22 03:54 Spherocytes Not Reportable 03/03/22 03:54 Pappenheimer Bodies Not Reportable 03/03/22 03:54 Sickle Cells Not Reportable 03/03/22 03:54 Target Cells Not Reportable 03/03/22 03:54 Tear Drop Cells Not Reportable 03/03/22 03:54 Ovalocytes Not Reportable 03/03/22 03:54 Helmet Cells Not Reportable 03/03/22 03:54 [place] Bodies Not Reportable 03/03/22 03:54 [place] Rings Not Reportable 03/03/22 03:54 [place] Cells Not Reportable 03/03/22 03:54 Bite Cells Not Reportable 03/03/22 03:54 Crenated Cell Not Reportable 03/03/22 03:54 Elliptocytes Not Reportable 03/03/22 03:54 Acanthocytes (Spur) Not Reportable 03/03/22 03:54 Rouleaux Not Reportable 03/03/22 03:54 Hemoglobin C Crystals Not Reportable 03/03/22 03:54 Schistocytes Not Reportable 03/03/22 03:54 Malaria parasites Not Reportable 03/03/22 03:54 Cash Bodies Not Reportable 03/03/22 03:54 Hem Pathologist Commnt No 03/03/22 03:54 PT 16.2 Sec. (12.2-14.9) H 03/11/22 04:02 INR 1.16 (0.87-1.13) H 03/11/22 04:02 ABG pH 7.476 pH Units (7.350-7.450) H 03/11/22 05:10 ABG pCO2 41.2 mm Hg 03/11/22 05:10 ABG pO2 84.0 mm Hg (80.0-90.0) 03/11/22 05:10 ABG HCO3 29.7 mmol/L (20.0-26.0) H 03/11/22 05:10 ABG O2 Saturation 97.1 % (95.0-99.0) 03/11/22 05:10 ABG O2 Content 12.3 (0.0-44) 03/11/22 05:10 ABG Base Excess 5.7 mmol/L (-2.0-3.0) H 03/11/22 05:10 ABG Hemoglobin 9.1 gm/dl (14.0-18.0) L 03/11/22 05:10 ABG Carboxyhemoglobin 1.7 % (0.0-5.0) 03/11/22 05:10 ABG Methemoglobin 0.5 % (0.0-1.5) 03/11/22 05:10 Oxyhemoglobin 95.0 % (95.0-99.0) 03/11/22 05:10 FiO2 30 % 03/11/22 05:10 Sodium 142 mmol/L (137-145) 03/16/22 05:28 Potassium 4.2 mmol/L (3.6-5.0) 03/16/22 05:28 Chloride 105.0 mmol/L (98-107) 03/16/22 05:28 Carbon Dioxide 29 mmol/L (22-30) 03/16/22 05:28 Anion Gap 12 mmol/L 03/16/22 05:28 BUN 17 mg/dL (9-20) 03/16/22 05:28 Creatinine 0.5 mg/dL (0.8-1.3) L 03/16/22 05:28 Estimated GFR > 60 ml/min 03/16/22 05:28 BUN/Creatinine Ratio 34 % 03/16/22 05:28 Glucose 88 mg/dL (75-100) 03/16/22 05:28 POC Glucose 91 mg/dL (70-105) 03/17/22 01:33 Lactic Acid 1.20 mmol/L (0.7-2.0) 02/18/22 21:02 Calcium 8.2 mg/dL (8.4-10.2) L 03/16/22 05:28 Phosphorus 4.10 mg/dL (2.5-4.5) 03/14/22 03:58 Magnesium 2.10 mg/dL (1.7-2.3) 03/14/22 03:58 Total Bilirubin 0.30 mg/dL (0.1-1.2) 03/10/22 03:57 AST 17 units/L (5-40) 03/10/22 03:57 ALT 18 units/L (7-56) 03/10/22 03:57 Alkaline Phosphatase 89 units/L (35-129) 03/10/22 03:57 Ammonia 14.0 umol/L (25-60) L 02/18/22 23:22 Troponin T < 0.010 ng/mL (0.00-0.029) 02/18/22 21:02 Total Protein 6.6 g/dL (6.3-8.2) 03/10/22 03:57 Albumin 1.9 g/dL (3.9-5) L 03/10/22 03:57 Albumin/Globulin Ratio 0.4 % 03/10/22 03:57 Urine Color Dark yellow (Yellow) 02/18/22 Unknown Urine Turbidity Clear (Clear) 02/18/22 Unknown Urine pH 7.0 (5.0-7.0) 02/18/22 Unknown Ur Specific [place] 1.015 (1.003-1.030) 02/18/22 Unknown Urine Protein <15 mg/dl mg/dL (Negative) 02/18/22 Unknown Urine Glucose (UA) Negative mg/dL (Negative) 02/18/22 Unknown Urine Ketones Negative mg/dL (Negative) 02/18/22 Unknown Urine Blood Trace (Negative) 02/18/22 Unknown Urine Nitrite Negative (Negative) 02/18/22 Unknown Urine Bilirubin Negative (Negative) 02/18/22 Unknown Urine Urobilinogen < 2.0 mg/dL (<2.0) 02/18/22 Unknown Ur Leukocyte Esterase Negative (Negative) 02/18/22 Unknown Urine WBC (Auto) 2.0 /HPF (0.0-6.0) 02/18/22 Unknown Urine RBC (Auto) 9.0 /HPF (0.0-6.0) 02/18/22 Unknown Urine Mucus Few /HPF 02/18/22 Unknown Urine Opiates Screen Negative 02/18/22 Unknown Urine Methadone Screen Negative 02/18/22 Unknown Ur Barbiturates Screen Negative 02/18/22 Unknown Ur Phencyclidine Scrn Negative 02/18/22 Unknown Ur Amphetamines Screen Negative 02/18/22 Unknown U Benzodiazepines Scrn Negative 02/18/22 Unknown Urine Cocaine Screen Negative 02/18/22 Unknown U Marijuana (THC) Screen Negative 02/18/22 Unknown Drugs of Abuse Note Disclamer 02/18/22 Unknown Plasma/Serum Alcohol < 0.01 % (0-0.07) 02/18/22 21:02 Summers/IV: Voiding Method Indwelling Catheter Active Medications - Current Medications Current Medications: Generic Name Dose Route Start Last Admin Trade Name Freq PRN Reason Stop Dose Admin Acetaminophen 650 mg 03/03/22 09:00 Acetaminophen 325 Mg/10.15 Ml Oral Liqd Unit Dose FEEDTUBE Q4H PRN Pain, Mild (1-3); TEMP > 100.4 Albuterol 2.5 mg 03/12/22 20:00 03/17/22 08:16 Albuterol 2.5 Mg/3 Ml Nebu IH 2.5 mg Q6HRT LAZARUS Administration Famotidine 20 mg 02/25/22 10:00 03/17/22 10:12 Famotidine 20 Mg Tab FEEDTUBE 20 mg BID LAZARUS Administration Heparin Sodium (Porcine) 5,000 unit 02/19/22 06:00 03/17/22 06:28 Heparin 5,000 Unit/1 Ml Vial SUB-Q 5,000 unit Q8HR LAZARUS Administration Hydrophilic Ointment 1 applic 02/24/22 15:05 Lip Therapy Vaseline TP Q2HR PRN Dry Lips Levetiracetam 500 mg 02/25/22 22:00 03/17/22 10:12 Levetiracetam 500 Mg/5 Ml Oral Liqd FEEDTUBE 500 mg BID LAZARUS Administration Levothyroxine Sodium 25 mcg 02/26/22 06:00 03/17/22 06:28 Levothyroxine 25 Mcg Tab FEEDTUBE 25 mcg QAM@0600 LAZARUS Administration Magnesium Hydroxide 30 ml 02/19/22 02:02 Magnesium Hydroxide (Mom) Oral Liqd Udc PO Q4H PRN Constipation Midodrine 2.5 mg 03/14/22 17:20 03/17/22 10:12 Midodrine 2.5 Mg Tab PO 2.5 mg TID@0800,1200,1600 LAZARUS Administration Multi-Ingred Cream/Lotion/Oil/Oint 1 applic 02/24/22 15:05 Mineral Oil/Petrolatum, White Ophth Oint 3.5 Gm OU Q4HR PRN Dry Eye(s) Ondansetron HCl 4 mg 02/19/22 02:02 Ondansetron 4 Mg/2 Ml Inj IV Q8H PRN Nausea And Vomiting Pravastatin Sodium 40 mg 02/25/22 22:00 03/16/22 21:27 Pravastatin 40 Mg Tab FEEDTUBE 40 mg QHS LAZARUS Administration Senna/Docusate Sodium 1 tab 02/24/22 22:00 03/17/22 10:12 Sennosides/Docusate Sodium 8.6/50 Mg Tab FEEDTUBE 1 tab BID LAZARUS Administration Sodium Chloride 10 ml 02/19/22 10:00 03/17/22 10:12 Sodium Chloride 0.9% 10 Ml Flush Syringe IV 10 ml BID LAZARUS Administration Sodium Chloride 10 ml 02/19/22 02:02 03/03/22 14:21 Sodium Chloride 0.9% 10 Ml Flush Syringe IV 10 ml PRN PRN Administration LINE FLUSH Nutrition/Malnutrition Assess - Dietary Evaluation Nutrition/Malnutrition Findings: Nutrition Notes Start: 02/19/22 14:29 Freq: Status: Active Protocol: Document 03/14/22 14:33 [facility] (Rec: 03/14/22 14:36 [facility] [id number]) Nutrition Notes Initial or Follow up Reassessment Current Diagnosis Hypertension,Respiratory Failure,Hyperlipidemia Other Pertinent Diagnosis Asp pneu, acute encephalopathy , seizure d/o, partial blindness Current Diet TF - Vital AF 1.2 at 50ml/hr Labs/Tests Reviewed Pertinent Medications Reviewed Height 5 ft 3 in Weight 63.2 kg [place] Body Weight (kg) 56.36 BMI 24.7 Weight Status Appropriate Subjective/Other Information Pt remains on vent support; no trach or PEG placed yet. Pt continues to tolerate TF. BM x 1 today. Percent of energy/protein needs met: 90% energy 100% pro Burn Absent Trauma Absent #1 Nutrition Diagnosis Inadequate oral intake Diagnosis Progress(for reassessment Continues documentation) Is patient on ventilator? Yes Is Patient Ambulatory and/or Out of Bed No REE-([place]-. Jeor-confined to bed) [phone] Calculation Used for Recommendations [facility] Additional Notes Pro needs 1.2-2g/k-126g/ day Fluid needs 1ml/kcal Nutrition Intervention Nutrition Support: Continue Vital AF 1.2 at 50ml/ hr with 75ml water flush q4h. Kcal 1,440 Protein (gm) 90 Carbohydrates (gm) 133 Fat (gm) 65 Fluid (mL) 973 Fiber (gm) 6 Goal #1 TF tolerance Goal #2 TF to meet at least 75% energy and pro needs Follow-Up By: 03/21/22 Additional Comments F/U: stable TF, trach/PEG placement, vent status <SILVIA BUCHANAN - Last Filed: 03/25/22 08:01> Assessment and Plan Assessment and plan: I saw and evaluated the patient. Discussed with the nurse practitioner and agree with their findings and plan as documented in this note. Hospitalist Physical - Constitutional Vitals: Temp Pulse Resp BP Pulse Ox 98.6 F 93 H 18 107/77 94 03/25/22 07:09 03/25/22 07:00 03/25/22 07:00 03/25/22 07:00 03/25/22 07:00 HEART Score - HEART Score Troponin: Troponin T < 0.010 ng/mL (0.00-0.029) 02/18/22 21:02 Results - Labs CBC & Chem 7: 03/24/22 03:47 03/24/22 03:47 Labs: Laboratory Last Values WBC 6.6 K/mm3 (4.5-11.0) 03/24/22 03:47 RBC 3.18 M/mm3 (3.65-5.03) L 03/24/22 03:47 Hgb 10.1 gm/dl (11.8-15.2) L 03/24/22 03:47 Hct 31.1 % (35.5-45.6) L 03/24/22 03:47 MCV 98 fl (84-94) H 03/24/22 03:47 MCH 32 pg (28-32) 03/24/22 03:47 MCHC 33 % (32-34) 03/24/22 03:47 RDW 17.4 % (13.2-15.2) H 03/24/22 03:47 Plt Count 356 K/mm3 (140-440) 03/24/22 03:47 Lymph % (Auto) 13.3 % (13.4-35.0) L 03/10/22 03:57 Karnes % (Auto) 12.5 % (0.0-7.3) H 03/10/22 03:57 Eos % (Auto) 1.4 % (0.0-4.3) 03/10/22 03:57 Baso % (Auto) 0.4 % (0.0-1.8) 03/10/22 03:57 Lymph # (Auto) 1.3 K/mm3 (1.2-5.4) 03/10/22 03:57 Karnes # (Auto) 1.3 K/mm3 (0.0-0.8) H 03/10/22 03:57 Eos # (Auto) 0.1 K/mm3 (0.0-0.4) 03/10/22 03:57 Baso # (Auto) 0.0 K/mm3 (0.0-0.1) 03/10/22 03:57 Add Manual Diff Complete 03/03/22 03:54 Total Counted 100 03/03/22 03:54 Seg Neutrophils % 72.4 % (40.0-70.0) H 03/10/22 03:57 Seg Neuts % (Manual) 95.0 % (40.0-70.0) H 03/03/22 03:54 Band Neutrophils % 0 % 03/03/22 03:54 Lymphocytes % (Manual) 3.0 % (13.4-35.0) L 03/03/22 03:54 Reactive Lymphs % (Man) 0 % 03/03/22 03:54 Monocytes % (Manual) 2.0 % (0.0-7.3) 03/03/22 03:54 Eosinophils % (Manual) 0 % (0.0-4.3) 03/03/22 03:54 Basophils % (Manual) 0 % (0.0-1.8) 03/03/22 03:54 Metamyelocytes % 0 % 03/03/22 03:54 Myelocytes % 0 % 03/03/22 03:54 Promyelocytes % 0 % 03/03/22 03:54 Blast Cells % 0 % 03/03/22 03:54 Nucleated RBC % Not Reportable 03/03/22 03:54 Seg Neutrophils # 7.4 K/mm3 (1.8-7.7) 03/10/22 03:57 Seg Neutrophils # Man 18.5 K/mm3 (1.8-7.7) H 03/03/22 03:54 Band Neutrophils # 0.0 K/mm3 03/03/22 03:54 Lymphocytes # (Manual) 0.6 K/mm3 (1.2-5.4) L 03/03/22 03:54 Abs React Lymphs (Man) 0.0 K/mm3 03/03/22 03:54 Monocytes # (Manual) 0.4 K/mm3 (0.0-0.8) 03/03/22 03:54 Eosinophils # (Manual) 0.0 K/mm3 (0.0-0.4) 03/03/22 03:54 Basophils # (Manual) 0.0 K/mm3 (0.0-0.1) 03/03/22 03:54 Metamyelocytes # 0.0 K/mm3 03/03/22 03:54 Myelocytes # 0.0 K/mm3 03/03/22 03:54 Promyelocytes # 0.0 K/mm3 03/03/22 03:54 Blast Cells # 0.0 K/mm3 03/03/22 03:54 WBC Morphology Not Reportable 03/03/22 03:54 Hypersegmented Neuts Not Reportable 03/03/22 03:54 Hyposegmented Neuts Not Reportable 03/03/22 03:54 Hypogranular Neuts Not Reportable 03/03/22 03:54 Smudge Cells Not Reportable 03/03/22 03:54 Toxic Granulation Not Reportable 03/03/22 03:54 Toxic Vacuolation Not Reportable 03/03/22 03:54 Dohle Bodies Not Reportable 03/03/22 03:54 Pelger-Huet Anomaly Not Reportable 03/03/22 03:54 Lakshmi Rods Not Reportable 03/03/22 03:54 Platelet Estimate Consistent w auto 03/03/22 03:54 Clumped Platelets Not Reportable 03/03/22 03:54 Plt Clumps, EDTA Not Reportable 03/03/22 03:54 Large Platelets Not Reportable 03/03/22 03:54 Giant Platelets Not Reportable 03/03/22 03:54 Platelet Satelliting Not Reportable 03/03/22 03:54 Plt Morphology Comment Not Reportable 03/03/22 03:54 RBC Morphology Not Reportable 03/03/22 03:54 Dimorphic RBCs Not Reportable 03/03/22 03:54 Polychromasia Not Reportable 03/03/22 03:54 Hypochromasia Not Reportable 03/03/22 03:54 Poikilocytosis Not Reportable 03/03/22 03:54 Anisocytosis 1+ 03/03/22 03:54 Microcytosis Not Reportable 03/03/22 03:54 Macrocytosis Not Reportable 03/03/22 03:54 Spherocytes Not Reportable 03/03/22 03:54 Pappenheimer Bodies Not Reportable 03/03/22 03:54 Sickle Cells Not Reportable 03/03/22 03:54 Target Cells Not Reportable 03/03/22 03:54 Tear Drop Cells Not Reportable 03/03/22 03:54 Ovalocytes Not Reportable 03/03/22 03:54 Helmet Cells Not Reportable 03/03/22 03:54 [place] Bodies Not Reportable 03/03/22 03:54 [place] Rings Not Reportable 03/03/22 03:54 [place] Cells Not Reportable 03/03/22 03:54 Bite Cells Not Reportable 03/03/22 03:54 Crenated Cell Not Reportable 03/03/22 03:54 Elliptocytes Not Reportable 03/03/22 03:54 Acanthocytes (Spur) Not Reportable 03/03/22 03:54 Rouleaux Not Reportable 03/03/22 03:54 Hemoglobin C Crystals Not Reportable 03/03/22 03:54 Schistocytes Not Reportable 03/03/22 03:54 Malaria parasites Not Reportable 03/03/22 03:54 Cash Bodies Not Reportable 03/03/22 03:54 Hem Pathologist Commnt No 03/03/22 03:54 PT 16.2 Sec. (12.2-14.9) H 03/11/22 04:02 INR 1.16 (0.87-1.13) H 03/11/22 04:02 ABG pH 7.392 pH Units (7.350-7.450) 03/22/22 14:25 ABG pCO2 54.4 mm Hg 03/22/22 14:25 ABG pO2 150.5 mm Hg (80.0-90.0) H 03/22/22 14:25 ABG HCO3 32.4 mmol/L (20.0-26.0) H 03/22/22 14:25 ABG O2 Saturation 98.8 % (95.0-99.0) 03/22/22 14:25 ABG O2 Content 15.8 (0.0-44) 03/22/22 14:25 ABG Base Excess 6.2 mmol/L (-2.0-3.0) H 03/22/22 14:25 ABG Hemoglobin 11.4 gm/dl (14.0-18.0) L 03/22/22 14:25 ABG Carboxyhemoglobin 1.6 % (0.0-5.0) 03/22/22 14:25 ABG Methemoglobin 0.6 % (0.0-1.5) 03/22/22 14:25 Oxyhemoglobin 96.6 % (95.0-99.0) 03/22/22 14:25 FiO2 30 % 03/22/22 14:25 Sodium 139 mmol/L (137-145) 03/24/22 03:47 Potassium 4.3 mmol/L (3.6-5.0) 03/24/22 03:47 Chloride 101.7 mmol/L (98-107) 03/24/22 03:47 Carbon Dioxide 30 mmol/L (22-30) 03/24/22 03:47 Anion Gap 12 mmol/L 03/24/22 03:47 BUN 20 mg/dL (9-20) 03/24/22 03:47 Creatinine 0.5 mg/dL (0.8-1.3) L 03/24/22 03:47 Estimated GFR > 60 ml/min 03/24/22 03:47 BUN/Creatinine Ratio 40 % 03/24/22 03:47 Glucose 99 mg/dL (75-100) 03/24/22 03:47 POC Glucose 103 mg/dL (70-105) 03/25/22 06:01 Lactic Acid 1.20 mmol/L (0.7-2.0) 02/18/22 21:02 Calcium 8.5 mg/dL (8.4-10.2) 03/24/22 03:47 Phosphorus 3.50 mg/dL (2.5-4.5) 03/20/22 04:09 Magnesium 2.00 mg/dL (1.7-2.3) 03/20/22 04:09 Total Bilirubin 0.30 mg/dL (0.1-1.2) 03/10/22 03:57 AST 17 units/L (5-40) 03/10/22 03:57 ALT 18 units/L (7-56) 03/10/22 03:57 Alkaline Phosphatase 89 units/L (35-129) 03/10/22 03:57 Ammonia 14.0 umol/L (25-60) L 02/18/22 23:22 Troponin T < 0.010 ng/mL (0.00-0.029) 02/18/22 21:02 Total Protein 6.6 g/dL (6.3-8.2) 03/10/22 03:57 Albumin 1.9 g/dL (3.9-5) L 03/10/22 03:57 Albumin/Globulin Ratio 0.4 % 03/10/22 03:57 Urine Color Dark yellow (Yellow) 02/18/22 Unknown Urine Turbidity Clear (Clear) 02/18/22 Unknown Urine pH 7.0 (5.0-7.0) 02/18/22 Unknown Ur Specific [place] 1.015 (1.003-1.030) 02/18/22 Unknown Urine Protein <15 mg/dl mg/dL (Negative) 02/18/22 Unknown Urine Glucose (UA) Negative mg/dL (Negative) 02/18/22 Unknown Urine Ketones Negative mg/dL (Negative) 02/18/22 Unknown Urine Blood Trace (Negative) 02/18/22 Unknown Urine Nitrite Negative (Negative) 02/18/22 Unknown Urine Bilirubin Negative (Negative) 02/18/22 Unknown Urine Urobilinogen < 2.0 mg/dL (<2.0) 02/18/22 Unknown Ur Leukocyte Esterase Negative (Negative) 02/18/22 Unknown Urine WBC (Auto) 2.0 /HPF (0.0-6.0) 02/18/22 Unknown Urine RBC (Auto) 9.0 /HPF (0.0-6.0) 02/18/22 Unknown Urine Mucus Few /HPF 02/18/22 Unknown Urine Opiates Screen Negative 02/18/22 Unknown Urine Methadone Screen Negative 02/18/22 Unknown Ur Barbiturates Screen Negative 02/18/22 Unknown Ur Phencyclidine Scrn Negative 02/18/22 Unknown Ur Amphetamines Screen Negative 02/18/22 Unknown U Benzodiazepines Scrn Negative 02/18/22 Unknown Urine Cocaine Screen Negative 02/18/22 Unknown U Marijuana (THC) Screen Negative 02/18/22 Unknown Drugs of Abuse Note Disclamer 02/18/22 Unknown Plasma/Serum Alcohol < 0.01 % (0-0.07) 02/18/22 21:02 Summers/IV: Voiding Method Indwelling Catheter Active Medications - Current Medications Current Medications: Generic Name Dose Route Start Last Admin Trade Name Freq PRN Reason Stop Dose Admin Acetaminophen 650 mg 03/03/22 09:00 Acetaminophen 325 Mg/10.15 Ml Oral Liqd Unit Dose FEEDTUBE Q4H PRN Pain, Mild (1-3); TEMP > 100.4 Albuterol 2.5 mg 03/12/22 20:00 03/25/22 01:32 Albuterol 2.5 Mg/3 Ml Nebu IH 2.5 mg Q6HRT LAZARUS Administration Famotidine 20 mg 02/25/22 10:00 03/24/22 21:05 Famotidine 20 Mg Tab FEEDTUBE 20 mg BID LAZARUS Administration Heparin Sodium (Porcine) 5,000 unit 02/19/22 06:00 03/25/22 05:18 Heparin 5,000 Unit/1 Ml Vial SUB-Q 5,000 unit Q8HR LAZARUS Administration Hydrophilic Ointment 1 applic 02/24/22 15:05 Lip Therapy Vaseline TP Q2HR PRN Dry Lips Levetiracetam 500 mg 02/25/22 22:00 03/24/22 21:05 Levetiracetam 500 Mg/5 Ml Oral Liqd FEEDTUBE 500 mg BID LAZARUS Administration Levothyroxine Sodium 25 mcg 02/26/22 06:00 03/25/22 05:18 Levothyroxine 25 Mcg Tab FEEDTUBE 25 mcg QAM@0600 LAZARUS Administration Magnesium Hydroxide 30 ml 02/19/22 02:02 Magnesium Hydroxide (Mom) Oral Liqd Udc PO Q4H PRN Constipation Midodrine 2.5 mg 03/19/22 12:00 03/24/22 17:14 Midodrine 2.5 Mg Tab FEEDTUBE 2.5 mg TID@0800,1200,1600 LAZARUS Administration Multi-Ingred Cream/Lotion/Oil/Oint 1 applic 02/24/22 15:05 Mineral Oil/Petrolatum, White Ophth Oint 3.5 Gm OU Q4HR PRN Dry Eye(s) Ondansetron HCl 4 mg 02/19/22 02:02 Ondansetron 4 Mg/2 Ml Inj IV Q8H PRN Nausea And Vomiting Pravastatin Sodium 40 mg 02/25/22 22:00 03/24/22 21:05 Pravastatin 40 Mg Tab FEEDTUBE 40 mg QHS LAZARUS Administration Senna/Docusate Sodium 1 tab 02/24/22 22:00 03/24/22 21:05 Sennosides/Docusate Sodium 8.6/50 Mg Tab FEEDTUBE 1 tab BID LAZARUS Administration Sodium Chloride 10 ml 02/19/22 10:00 03/24/22 21:05 Sodium Chloride 0.9% 10 Ml Flush Syringe IV 10 ml BID LAZARUS Administration Sodium Chloride 10 ml 02/19/22 02:02 03/03/22 14:21 Sodium Chloride 0.9% 10 Ml Flush Syringe IV 10 ml PRN PRN Administration LINE FLUSH Nutrition/Malnutrition Assess - Dietary Evaluation Nutrition/Malnutrition Findings: Nutrition Notes Start: 02/19/22 14:29 Freq: Status: Active Protocol: Document 03/21/22 15:43 IVAN (Rec: 03/21/22 15:45 IVAN [id number]) Nutrition Notes Initial or Follow up Reassessment Current Diagnosis Hypertension,Respiratory Failure,Hyperlipidemia Other Pertinent Diagnosis Asp pneu, acute encephalopathy , seizure d/o, partial blindness Current Diet TF - Vital AF 1.2 at 50ml/hr Labs/Tests Reviewed Pertinent Medications Reviewed Height 5 ft 3 in Weight 63.2 kg [place] Body Weight (kg) 56.36 BMI 24.7 Weight Status Appropriate Subjective/Other Information Pt remains on vent support; still awaiting decision on guardianship for trach/PEG placement. Pt continues to tolerate TF at goal rate. Last BM was 03/18 per RN verbal report. Percent of energy/protein needs met: 90% energy 100% pro Burn Absent Trauma Absent #1 Nutrition Diagnosis Inadequate oral intake Diagnosis Progress(for reassessment Continues documentation) Is patient on ventilator? Yes Is Patient Ambulatory and/or Out of Bed No REE-([facility]-confined to bed) [phone] Calculation Used for Recommendations Rochelle Henning Additional Notes Pro needs 1.2-2g/k-126g/ day Fluid needs 1ml/kcal Nutrition Intervention Nutrition Support: Continue Vital AF 1.2 at 50ml/ hr with 75ml water flush q4h. Kcal 1,440 Protein (gm) 90 Carbohydrates (gm) 133 Fat (gm) 65 Fluid (mL) 973 Fiber (gm) 6 Goal #1 TF tolerance Goal #2 TF to meet at least 75% energy and pro needs Follow-Up By: 03/28/22 Additional Comments F/U: stable TF, trach/PEG placement, vent status, wt, BM
[2022-03-17] MEDS: PRAVASTATIN 40 MG TAB FEEDTUBE SCH (21:54)
[2022-03-18] MEDS: ALBUTEROL 2.5 MG/3 ML NEBU IH SCH ×4 (02:12→20:00)
[2022-03-18] MEDS: HEPARIN 5,000 UNIT/1 ML VIAL SUB-Q SCH ×3 (05:12→21:42)
[2022-03-18] MEDS: LEVOTHYROXINE 25 MCG TAB FEEDTUBE SCH (05:12)
[2022-03-18] MEDS: MIDODRINE 2.5 MG TAB PO SCH ×3 (07:35→16:49)
[2022-03-18] MEDS: FAMOTIDINE 20 MG TAB FEEDTUBE SCH ×2 (09:31→21:42)
[2022-03-18] MEDS: SENNOSIDES/DOCUSATE SODIUM 8.6/50 MG TAB FEEDTUBE SCH ×2 (09:31→21:42)
[2022-03-18] MEDS: levETIRAcetam 500 MG/5 ML ORAL LIQD FEEDTUBE SCH ×2 (09:31→21:42)
--- NOTE | 2022-03-18 10:32 | Progress Note ---
Assessment and Plan 61 y/o male with abnormal CT of chest. 03/18/22: Day 22 of intubation. Prognosis remains guarded. Not able to obtain trach and peg with consent. Continue daily PSV trials as tolerated. 03/17/22: Day 21 of intubation. Still awaiting some form of decision maker for trach and peg placement. Guarded prognosis. 03/16/22: Day 20 of intubation. BP stable. Continue midodrine. Awaiting emergency guardianship from Court to obtain consent for trach and peg. Guarded prognosis. 03/15/22: Day 19 of intubation. BP now is marginal more regularly. Will give an additional liter bolus of LR now. May need to increase Midodrine back to 5. Needs trach in order to be safely weaned from ventilator. Will need peg tube placement in addition to trach. Prognosis remains guarded. Continue PSV trials as tolerated. 03/14/22: Day 18 of intubation. Vitals stable and mental status is unchanged. Still in need of tracheostomy as well as peg tube placement. No guardian appointed yet. 03/13/22: Day 17 of intubation. Agree with bolus and restarting of midodrine. was stopped previously secondary to bradycardia. If patient spikes temp, will culture blood and urine and repeat CXR. Continue daily PSV trials to assess ability for vent liberation. Continues to need trach however no family/guardian to provide consent. Guarded prognosis. 03/12/22: Day 16 of intubation. Following up with hospital in regards to guardian. Continue supportive measures. Guarded prognosis. 03/11/22: hospital now attempting to find emergency guardian to have consent for trach as ethics committee cannot comment on this matter so unable to help. U ntil then will remain intubated orally. Failed PSV yesterday, will continue to attempt on daily basis. Unfortunate situation. Guarded prognosis. 03/10/22: Today nuñez day 14 of intubation. Given patient's mental state and increased risk of aspiration, the likelihood of conventional extubation with success is very very slim and the patient has already failed this in an extremely short period of time (less than 1 hour). I suspect that he will fail again if tried and could create more difficult reintubation as he was a difficult reintubation on his failed extubation attempt. To prevent further decline and potential complications of prolonged mechanical ventilation, will discuss with ethics and the hospital to use 2 physician consent to obtain trach and peg for this patient with hopes of liberating him from the mechanical ventilator. he has very minimal vent requirements but as been stated several times above, he continues to aspirate and failed conventional extubation almost immediately. Will consult surgery today. Dr. Mancia is prepared to sign consent as well as myself. Hopeful surgery will be on board with this. Continue supportive care for now. Attempt daily PSV trials. 03/07/22: Daily PSV trials as tolerated. Still no one to step up as adult friend. patient has now been intubated since 02/24/22 and is approaching the time period in which prolonged mechanical ventilation could lead to significant complications that could be detrimental to health (infection, stenosis, malacia etc). Will discuss again with ethics but in regards to medical necessity, may need to consider two physician consent if no one is able to claim responsibility for this patient. He is a full code and we must work in his best interest to prevent further harm. Continue supportive measures but he is not a candidate for conventional extubation given his mental state, despite being on minimal support. He has already failed this before. 03/06/22: PSV trials daily. Will discuss with RT. Spoke with ethics. Plan in place and awaiting on news from [facility] and [facility]. Continue supportive measures. Patient has been intubated since 02/24/22 and is approaching the 2 week shadi of intubation will need to make decisions soon to avoid unnecessary complications related to prolonged intubation. 03/05/22: Will follow up with ethics today. Awaiting some guidance about consent for trach and peg. This is a medical necessity to liberate patient from mechanical ventilation. Continue supportive measures. Ok with daily PSV trials 03/04/22: Follow up with ethics later this afternoon. Spoke with RT and patient does have cuff leak, will stop steroids. Stopping midodrine as BP is stable and bradycardia likely from this. 03/03/22: Await ethics eval. CM has spoken with state as well. Daily cuff leaks. Will start to wean steroids tomorrow. Midodrine can cause bradycardia. If continues or worsens will stop. Guarded prognosis. 03/02/22: Continue supportive measures. Await ethics consult before surgery consult for trach and peg. no further need for fluid boluses. Will continue stress dose steroids but have daily air leak checks by RT. Still will need trach, will not attempt extubation again. Guarded prognosis. 03/01/22: Patient is having increased urine output. This could be the cause of new onset hypotension. Will bolus 2 more liters of LR now and reassess. If this continues may need to work up for SIADH including repeat head CT. Follow up ethics review of case. Will need trach for ventilator liberation. Overall prognosis remains guarded. 02/28/22: Will obtain CT neck, noncontrast to look for airway edema or other possible etiologies for failure. Needs ethics consult as given patient's mental state, inability to clear secretions appropriately, will need trach now that he has failed extubation. However he has no family and no POA so no one to give consent. Continue supportive measures. Guarded prognosis. 02/27/22: Continue improvement of oxygenation. Will drop PEEP down today with goal of being at 6 by in the morning. Will repeat CT scan to confirm improvement as no endobronchial lesion was seen, but also to make sure no parenchymal mass. There was no evidence of extrinsic compression during bronch. Likely extubation tomorrow post CT. 02/26/22: Repeat CXR now. Wean Vent as tolerated. Hopeful extubation soon. Mucous removed. NO ENDOBRONCHIAL LESION/MASS 02/25/22: Bronch tentatively planned for tomorrow with therapeutic scope. Awaiting GI lab to give a time. NPO after midnight. Continue high PEEP 02/24/22: WIll attempt to bronch tomorrow morning. NPO after midnight. Just received word from GI lab they are not able to do bronch tomorrow. Cancel NPO order. Continue to feed patient. Repeat ABG in AM along with CXR. 02/21/22: No new pulm recs for today. Please obtain repeat CXR likely on Thursday. If patient happens to get worse, likely not a candidate for bipap given his weak cough and mental state and inability to communicate. If worsens and requires intubation, will bronch then under emergent circumstances if no POA or family is able to be located. Continue CPT. Will discuss with RT about NT suctioning. 02/20/22: Saw speech while on the floor. Would like patient to be NPO now. Discussed with nurse on floor and with IMS. Same recs pulm way as yesterday. Would benefit from bronch if able to get consent as this is not emergent. Continue CPT and q shift NT suctioning. Reviewed admission in the past and of note, patient was recently admitted last month and had a CXR done on the 29 of January that was normal. Given this patient's medical history and the history that I obtained from the nursing staff that at the [facility] he was eating solid foods, I suspect that this is aspiration, possibly of a foreign body (most likely food) with atelectasis of the right lower lobe. It is highly unlikely that a mass evolved in size in less than a months time and patient, besides age, has no real risk factors for lung carcinoma. Discussed with the nurse and unfortunately there is no identifiable person that is able to give consent. Bronchoscopy is needed in the case to evaluate to see if lung mass is there vs foreign body, but at this time not able to do. In the meanwhile will recommend the following. 1. Will order CPT with neb therapy 3x daily 2. Suggest maybe NT suctioning q shift. May use nasal trumpet, however do not leave this device in the patient 3. Aspiration precautions 4. Consider speech eval to assess swallowing. Will continue to follow. CCT 31 minutes. Subjective Date of service: 03/18/22 Principal diagnosis: f/u Acute respiratory failure Interval history: No acute events. Currently on PSV trial since 804. Tolerating well. Objective Vital Signs - 12hr 03/17/22 03/18/22 03/18/22 23:00 00:00 01:00 Temperature 97.6 F Pulse Rate 76 72 74 Pulse Rate [ Bilateral Throughout] Pulse Rate [ 83 From Monitor] Respiratory 14 14 15 Rate Respiratory Rate [Bilateral Throughout] Blood Pressure 107/59 116/61 113/61 O2 Sat by Pulse 99 99 99 Oximetry 03/18/22 03/18/22 03/18/22 02:00 03:00 04:00 Temperature 97.6 F Pulse Rate 59 L 72 71 Pulse Rate [ 57 L Bilateral Throughout] Pulse Rate [ 69 From Monitor] Respiratory 14 14 14 Rate Respiratory 14 Rate [Bilateral Throughout] Blood Pressure 102/52 101/53 117/59 O2 Sat by Pulse 100 100 100 Oximetry 03/18/22 03/18/22 03/18/22 05:00 06:00 07:00 Temperature Pulse Rate 67 65 67 Pulse Rate [ Bilateral Throughout] Pulse Rate [ From Monitor] Respiratory 14 14 14 Rate Respiratory Rate [Bilateral Throughout] Blood Pressure 117/59 119/56 108/54 O2 Sat by Pulse 100 100 100 Oximetry 03/18/22 03/18/22 03/18/22 07:21 08:00 08:11 Temperature 98.1 F 98.1 F Pulse Rate 60 59 L Pulse Rate [ Bilateral Throughout] Pulse Rate [ 69 From Monitor] Respiratory 14 Rate Respiratory Rate [Bilateral Throughout] Blood Pressure 114/60 114/60 O2 Sat by Pulse 100 100 Oximetry 03/18/22 03/18/22 03/18/22 08:12 08:16 09:00 Temperature Pulse Rate 80 81 Pulse Rate [ 59 L Bilateral Throughout] Pulse Rate [ From Monitor] Respiratory 27 H 16 Rate Respiratory 14 Rate [Bilateral Throughout] Blood Pressure 114/60 114/60 O2 Sat by Pulse 100 99 Oximetry 03/18/22 10:00 Temperature Pulse Rate 87 Pulse Rate [ Bilateral Throughout] Pulse Rate [ From Monitor] Respiratory 17 Rate Respiratory Rate [Bilateral Throughout] Blood Pressure 115/89 O2 Sat by Pulse 99 Oximetry Constitutional: alert, other (critically ill on ventilator) Eyes: non-icteric ENT: oropharynx moist Neck: supple Effort: normal Ascultation: Bilateral: diminished breath sounds, rhonchi Cardiovascular: regular rate and rhythm (no mrg) Gastrointestinal: normoactive bowel sounds, soft, non-tender (on o2 vest in place), non-distended Integumentary: normal Extremities: no cyanosis, no edema Neurologic: other (awake) Psychiatric: other (unable to assess) CBC and BMP: 03/16/22 05:28 03/16/22 05:28 ABG, PT/INR, D-dimer: ABG ABG pH 7.476 pH Units (7.350-7.450) H 03/11/22 05:10 ABG pCO2 41.2 mm Hg 03/11/22 05:10 ABG pO2 84.0 mm Hg (80.0-90.0) 03/11/22 05:10 ABG O2 Saturation 97.1 % (95.0-99.0) 03/11/22 05:10 PT/INR, D-dimer PT 16.2 Sec. (12.2-14.9) H 03/11/22 04:02 INR 1.16 (0.87-1.13) H 03/11/22 04:02 Abnormal lab findings: Abnormal Labs 02/18/22 02/18/22 02/18/22 19:34 21:02 21:02 WBC RBC Hgb Hct MCV 101 H MCH 34 H MCHC RDW 16.1 H Lymph % (Auto) [place] % (Auto) 12.4 H Lymph # (Auto) [place] # (Auto) 1.2 H Seg Neutrophils % 73.0 H Seg Neuts % (Manual) Lymphocytes % (Manual) Seg Neutrophils # Seg Neutrophils # Man Lymphocytes # (Manual) PT 16.9 H INR 1.20 H ABG pH ABG pO2 ABG HCO3 ABG O2 Saturation ABG Base Excess ABG Hemoglobin Oxyhemoglobin Sodium Potassium Chloride Carbon Dioxide BUN Creatinine Glucose POC Glucose 116 H Calcium Phosphorus AST ALT Ammonia Albumin 02/18/22 02/18/22 02/18/22 21:02 22:45 23:22 WBC RBC Hgb Hct MCV MCH MCHC RDW Lymph % (Auto) [place] % (Auto) Lymph # (Auto) [place] # (Auto) Seg Neutrophils % Seg Neuts % (Manual) Lymphocytes % (Manual) Seg Neutrophils # Seg Neutrophils # Man Lymphocytes # (Manual) PT INR ABG pH ABG pO2 55.6 L ABG HCO3 28.4 H ABG O2 Saturation 91.5 L ABG Base Excess 3.8 H ABG Hemoglobin 13.2 L Oxyhemoglobin 89.6 L Sodium Potassium 5.1 H Chloride Carbon Dioxide BUN Creatinine Glucose 102 H POC Glucose Calcium Phosphorus AST 48 H ALT 64 H Ammonia 14.0 L Albumin 2.7 L 02/20/22 02/20/22 02/23/22 04:59 04:59 06:29 WBC 11.4 H RBC Hgb Hct MCV 103 H MCH 33 H MCHC RDW 16.5 H Lymph % (Auto) 5.5 L [place] % (Auto) 12.1 H Lymph # (Auto) 0.6 L [place] # (Auto) 1.4 H Seg Neutrophils % 81.4 H Seg Neuts % (Manual) Lymphocytes % (Manual) Seg Neutrophils # 9.2 H Seg Neutrophils # Man Lymphocytes # (Manual) PT INR ABG pH ABG pO2 ABG HCO3 ABG O2 Saturation ABG Base Excess ABG Hemoglobin Oxyhemoglobin Sodium Potassium Chloride Carbon Dioxide BUN Creatinine Glucose POC Glucose 113 H Calcium 8.2 L Phosphorus AST ALT Ammonia Albumin 02/23/22 02/23/2222 11:22 16:10 00:02 WBC RBC Hgb Hct MCV MCH MCHC RDW Lymph % (Auto) [place] % (Auto) Lymph # (Auto) [place] # (Auto) Seg Neutrophils % Seg Neuts % (Manual) Lymphocytes % (Manual) Seg Neutrophils # Seg Neutrophils # Man Lymphocytes # (Manual) PT INR ABG pH ABG pO2 ABG HCO3 ABG O2 Saturation ABG Base Excess ABG Hemoglobin Oxyhemoglobin Sodium Potassium Chloride Carbon Dioxide BUN Creatinine Glucose POC Glucose 108 H 115 H 109 H Calcium Phosphorus AST ALT Ammonia Albumin 02/24/22 02/24/22 02/24/22 11:05 11:05 13:20 WBC RBC 3.55 L Hgb Hct MCV 100 H MCH 34 H MCHC RDW 15.6 H Lymph % (Auto) [place] % (Auto) Lymph # (Auto) [place] # (Auto) Seg Neutrophils % Seg Neuts % (Manual) Lymphocytes % (Manual) Seg Neutrophils # Seg Neutrophils # Man Lymphocytes # (Manual) PT INR ABG pH ABG pO2 ABG HCO3 ABG O2 Saturation ABG Base Excess ABG Hemoglobin Oxyhemoglobin Sodium 146 H Potassium 3.2 L D Chloride 108.4 H Carbon Dioxide BUN Creatinine 0.5 L Glucose POC Glucose 111 H Calcium 7.9 L Phosphorus 2.20 L AST ALT Ammonia Albumin 02/24/22 02/24/22 02/24/22 16:30 17:03 20:25 WBC RBC Hgb Hct MCV MCH MCHC RDW Lymph % (Auto) [place] % (Auto) Lymph # (Auto) [place] # (Auto) Seg Neutrophils % Seg Neuts % (Manual) Lymphocytes % (Manual) Seg Neutrophils # Seg Neutrophils # Man Lymphocytes # (Manual) PT INR ABG pH 7.319 L ABG pO2 65.3 L ABG HCO3 31.3 H ABG O2 Saturation 92.2 L ABG Base Excess 3.8 H ABG Hemoglobin 12.0 L Oxyhemoglobin 90.3 L Sodium Potassium Chloride 107.9 H Carbon Dioxide BUN 8 L Creatinine 0.4 L Glucose POC Glucose 108 H Calcium 7.6 L Phosphorus 4.60 H D AST ALT Ammonia Albumin 02/25/22 02/25/22 02/25/22 04:12 04:12 05:05 WBC RBC 3.07 L Hgb 10.2 L Hct 31.5 L MCV 103 H MCH 33 H MCHC RDW 15.6 H Lymph % (Auto) [place] % (Auto) Lymph # (Auto) [place] # (Auto) Seg Neutrophils % Seg Neuts % (Manual) Lymphocytes % (Manual) Seg Neutrophils # Seg Neutrophils # Man Lymphocytes # (Manual) PT INR ABG pH ABG pO2 ABG HCO3 32.5 H ABG O2 Saturation ABG Base Excess 5.6 H ABG Hemoglobin 10.8 L Oxyhemoglobin 94.8 L Sodium Potassium 3.5 L Chloride 107.7 H Carbon Dioxide BUN Creatinine 0.5 L Glucose POC Glucose Calcium 7.0 L Phosphorus AST ALT Ammonia Albumin 02/25/22 02/25/22 02/26/22 12:05 18:33 00:07 WBC RBC Hgb Hct MCV MCH MCHC RDW Lymph % (Auto) [place] % (Auto) Lymph # (Auto) [place] # (Auto) Seg Neutrophils % Seg Neuts % (Manual) Lymphocytes % (Manual) Seg Neutrophils # Seg Neutrophils # Man Lymphocytes # (Manual) PT INR ABG pH ABG pO2 ABG HCO3 ABG O2 Saturation ABG Base Excess ABG Hemoglobin Oxyhemoglobin Sodium Potassium Chloride Carbon Dioxide BUN Creatinine Glucose POC Glucose 127 H 125 H 114 H Calcium Phosphorus AST ALT Ammonia Albumin 02/26/22 02/26/22 02/26/22 03:30 04:42 11:34 WBC RBC Hgb Hct MCV MCH MCHC RDW Lymph % (Auto) [place] % (Auto) Lymph # (Auto) [place] # (Auto) Seg Neutrophils % Seg Neuts % (Manual) Lymphocytes % (Manual) Seg Neutrophils # Seg Neutrophils # Man Lymphocytes # (Manual) PT INR ABG pH ABG pO2 143.2 H ABG HCO3 33.2 H ABG O2 Saturation ABG Base Excess 6.5 H ABG Hemoglobin 9.4 L Oxyhemoglobin Sodium Potassium Chloride Carbon Dioxide 32 H BUN Creatinine 0.7 L Glucose POC Glucose 114 H Calcium 8.0 L Phosphorus AST ALT Ammonia Albumin 02/26/22 02/26/22 02/27/22 18:17 23:37 04:19 WBC 13.7 H RBC 2.78 L Hgb 9.3 L Hct 28.5 L MCV 103 H MCH 33 H MCHC RDW 16.3 H Lymph % (Auto) [place] % (Auto) Lymph # (Auto) [place] # (Auto) Seg Neutrophils % Seg Neuts % (Manual) Lymphocytes % (Manual) Seg Neutrophils # Seg Neutrophils # Man Lymphocytes # (Manual) PT INR ABG pH ABG pO2 ABG HCO3 ABG O2 Saturation ABG Base Excess ABG Hemoglobin Oxyhemoglobin Sodium Potassium Chloride Carbon Dioxide BUN Creatinine Glucose POC Glucose 111 H 117 H Calcium Phosphorus AST ALT Ammonia Albumin 02/27/22 02/27/22 02/27/22 04:19 04:35 05:27 WBC RBC Hgb Hct MCV MCH MCHC RDW Lymph % (Auto) [place] % (Auto) Lymph # (Auto) [place] # (Auto) Seg Neutrophils % Seg Neuts % (Manual) Lymphocytes % (Manual) Seg Neutrophils # Seg Neutrophils # Man Lymphocytes # (Manual) PT INR ABG pH ABG pO2 96.3 H ABG HCO3 34.9 H ABG O2 Saturation ABG Base Excess 8.1 H ABG Hemoglobin Oxyhemoglobin Sodium Potassium Chloride Carbon Dioxide 31 H BUN Creatinine 0.6 L Glucose 107 H POC Glucose 133 H Calcium 7.8 L Phosphorus AST ALT Ammonia Albumin 02/27/22 02/27/22 02/28/22 11:15 23:35 03:38 WBC 13.3 H RBC 3.05 L Hgb 10.2 L Hct 30.7 L MCV 101 H MCH 33 H MCHC RDW 16.1 H Lymph % (Auto) [place] % (Auto) Lymph # (Auto) [place] # (Auto) Seg Neutrophils % Seg Neuts % (Manual) Lymphocytes % (Manual) Seg Neutrophils # Seg Neutrophils # Man Lymphocytes # (Manual) PT INR ABG pH ABG pO2 ABG HCO3 ABG O2 Saturation ABG Base Excess ABG Hemoglobin Oxyhemoglobin Sodium Potassium Chloride Carbon Dioxide BUN Creatinine Glucose POC Glucose 129 H 122 H Calcium Phosphorus AST ALT Ammonia Albumin 02/28/22 02/28/22 02/28/22 04:50 05:30 09:30 WBC RBC Hgb Hct MCV MCH MCHC RDW Lymph % (Auto) [place] % (Auto) Lymph # (Auto) [place] # (Auto) Seg Neutrophils % Seg Neuts % (Manual) Lymphocytes % (Manual) Seg Neutrophils # Seg Neutrophils # Man Lymphocytes # (Manual) PT INR ABG pH 7.451 H 7.488 H ABG pO2 77.0 L ABG HCO3 37.1 H 34.6 H ABG O2 Saturation ABG Base Excess 11.5 H 10.1 H ABG Hemoglobin 10.1 L 10.0 L Oxyhemoglobin Sodium Potassium Chloride Carbon Dioxide BUN Creatinine Glucose POC Glucose 121 H Calcium Phosphorus AST ALT Ammonia Albumin 02/28/22 02/28/22 03/01/22 11:36 23:07 04:27 WBC 12.5 H RBC 2.85 L Hgb 9.5 L Hct 28.6 L MCV 101 H MCH 33 H MCHC RDW 15.7 H Lymph % (Auto) [place] % (Auto) Lymph # (Auto) [place] # (Auto) Seg Neutrophils % Seg Neuts % (Manual) Lymphocytes % (Manual) Seg Neutrophils # Seg Neutrophils # Man Lymphocytes # (Manual) PT INR ABG pH ABG pO2 ABG HCO3 ABG O2 Saturation ABG Base Excess ABG Hemoglobin Oxyhemoglobin Sodium Potassium Chloride Carbon Dioxide BUN Creatinine Glucose POC Glucose 112 H 107 H Calcium Phosphorus AST ALT Ammonia Albumin 03/01/22 03/01/22 03/01/22 04:27 05:05 11:29 WBC RBC Hgb Hct MCV MCH MCHC RDW Lymph % (Auto) [place] % (Auto) Lymph # (Auto) [place] # (Auto) Seg Neutrophils % Seg Neuts % (Manual) Lymphocytes % (Manual) Seg Neutrophils # Seg Neutrophils # Man Lymphocytes # (Manual) PT INR ABG pH ABG pO2 ABG HCO3 ABG O2 Saturation ABG Base Excess ABG Hemoglobin Oxyhemoglobin Sodium 147 H D Potassium Chloride Carbon Dioxide 34 H BUN Creatinine 0.6 L Glucose 128 H POC Glucose 119 H 121 H Calcium 7.9 L Phosphorus AST ALT Ammonia Albumin 03/01/22 03/01/22 03/02/22 16:15 23:57 05:18 WBC RBC Hgb Hct MCV MCH MCHC RDW Lymph % (Auto) [place] % (Auto) Lymph # (Auto) [place] # (Auto) Seg Neutrophils % Seg Neuts % (Manual) Lymphocytes % (Manual) Seg Neutrophils # Seg Neutrophils # Man Lymphocytes # (Manual) PT INR ABG pH ABG pO2 110.5 H ABG HCO3 33.0 H ABG O2 Saturation ABG Base Excess 7.4 H ABG Hemoglobin 8.6 L Oxyhemoglobin Sodium Potassium Chloride Carbon Dioxide BUN Creatinine Glucose POC Glucose 134 H 140 H Calcium Phosphorus AST ALT Ammonia Albumin 03/02/22 03/02/22 03/02/22 05:53 09:04 09:04 WBC 15.0 H RBC 3.00 L Hgb 9.7 L Hct 30.7 L MCV 102 H MCH MCHC RDW 16.6 H Lymph % (Auto) [place] % (Auto) Lymph # (Auto) [place] # (Auto) Seg Neutrophils % Seg Neuts % (Manual) Lymphocytes % (Manual) Seg Neutrophils # Seg Neutrophils # Man Lymphocytes # (Manual) PT INR ABG pH ABG pO2 ABG HCO3 ABG O2 Saturation ABG Base Excess ABG Hemoglobin Oxyhemoglobin Sodium Potassium Chloride Carbon Dioxide 31 H BUN Creatinine 0.6 L Glucose 157 H POC Glucose 158 H Calcium 7.9 L Phosphorus AST ALT Ammonia Albumin 03/02/22 03/02/22 03/02/22 11:36 16:25 23:17 WBC RBC Hgb Hct MCV MCH MCHC RDW Lymph % (Auto) [place] % (Auto) Lymph # (Auto) [place] # (Auto) Seg Neutrophils % Seg Neuts % (Manual) Lymphocytes % (Manual) Seg Neutrophils # Seg Neutrophils # Man Lymphocytes # (Manual) PT INR ABG pH ABG pO2 ABG HCO3 ABG O2 Saturation ABG Base Excess ABG Hemoglobin Oxyhemoglobin Sodium Potassium Chloride Carbon Dioxide BUN Creatinine Glucose POC Glucose 160 H 132 H 157 H Calcium Phosphorus AST ALT Ammonia Albumin 03/03/22 03/03/22 03/03/22 03:54 03:54 05:27 WBC 19.5 H RBC 2.79 L Hgb 9.0 L Hct 28.6 L MCV 102 H MCH MCHC RDW 16.2 H Lymph % (Auto) [place] % (Auto) Lymph # (Auto) [place] # (Auto) Seg Neutrophils % Seg Neuts % (Manual) 95.0 H Lymphocytes % (Manual) 3.0 L Seg Neutrophils # Seg Neutrophils # Man 18.5 H Lymphocytes # (Manual) 0.6 L PT INR ABG pH ABG pO2 ABG HCO3 ABG O2 Saturation ABG Base Excess ABG Hemoglobin Oxyhemoglobin Sodium Potassium Chloride Carbon Dioxide BUN Creatinine 0.6 L Glucose 130 H POC Glucose 149 H Calcium 8.1 L Phosphorus AST ALT Ammonia Albumin 03/03/22 03/03/22 03/04/22 11:13 17:30 00:02 WBC RBC Hgb Hct MCV MCH MCHC RDW Lymph % (Auto) [place] % (Auto) Lymph # (Auto) [place] # (Auto) Seg Neutrophils % Seg Neuts % (Manual) Lymphocytes % (Manual) Seg Neutrophils # Seg Neutrophils # Man Lymphocytes # (Manual) PT INR ABG pH ABG pO2 ABG HCO3 ABG O2 Saturation ABG Base Excess ABG Hemoglobin Oxyhemoglobin Sodium Potassium Chloride Carbon Dioxide BUN Creatinine Glucose POC Glucose 139 H 138 H 157 H Calcium Phosphorus AST ALT Ammonia Albumin 03/04/22 03/04/22 03/04/22 05:32 05:32 05:48 WBC 16.1 H RBC 2.81 L Hgb 9.3 L Hct 28.8 L MCV 102 H MCH 33 H MCHC RDW 16.7 H Lymph % (Auto) [place] % (Auto) Lymph # (Auto) [place] # (Auto) Seg Neutrophils % Seg Neuts % (Manual) Lymphocytes % (Manual) Seg Neutrophils # Seg Neutrophils # Man Lymphocytes # (Manual) PT INR ABG pH ABG pO2 ABG HCO3 ABG O2 Saturation ABG Base Excess ABG Hemoglobin Oxyhemoglobin Sodium Potassium Chloride Carbon Dioxide BUN Creatinine 0.7 L Glucose 135 H POC Glucose 145 H Calcium 8.3 L Phosphorus AST ALT Ammonia Albumin 03/04/22 03/04/22 03/05/22 11:34 16:29 00:28 WBC RBC Hgb Hct MCV MCH MCHC RDW Lymph % (Auto) [place] % (Auto) Lymph # (Auto) [place] # (Auto) Seg Neutrophils % Seg Neuts % (Manual) Lymphocytes % (Manual) Seg Neutrophils # Seg Neutrophils # Man Lymphocytes # (Manual) PT INR ABG pH ABG pO2 ABG HCO3 ABG O2 Saturation ABG Base Excess ABG Hemoglobin Oxyhemoglobin Sodium Potassium Chloride Carbon Dioxide BUN Creatinine Glucose POC Glucose 148 H 140 H 116 H Calcium Phosphorus AST ALT Ammonia Albumin 03/05/22 03/05/22 03/05/22 06:29 11:30 17:38 WBC RBC Hgb Hct MCV MCH MCHC RDW Lymph % (Auto) [place] % (Auto) Lymph # (Auto) [place] # (Auto) Seg Neutrophils % Seg Neuts % (Manual) Lymphocytes % (Manual) Seg Neutrophils # Seg Neutrophils # Man Lymphocytes # (Manual) PT INR ABG pH ABG pO2 ABG HCO3 ABG O2 Saturation ABG Base Excess ABG Hemoglobin Oxyhemoglobin Sodium Potassium Chloride Carbon Dioxide BUN Creatinine Glucose POC Glucose 114 H 114 H 117 H Calcium Phosphorus AST ALT Ammonia Albumin 03/06/22 03/06/22 03/06/22 04:17 04:17 06:06 WBC 13.4 H RBC 2.85 L Hgb 9.4 L Hct 29.0 L MCV 102 H MCH 33 H MCHC RDW 16.4 H Lymph % (Auto) [place] % (Auto) Lymph # (Auto) [place] # (Auto) Seg Neutrophils % Seg Neuts % (Manual) Lymphocytes % (Manual) Seg Neutrophils # Seg Neutrophils # Man Lymphocytes # (Manual) PT INR ABG pH ABG pO2 ABG HCO3 ABG O2 Saturation ABG Base Excess ABG Hemoglobin Oxyhemoglobin Sodium Potassium 3.5 L Chloride Carbon Dioxide 31 H BUN Creatinine 0.6 L Glucose 101 H POC Glucose 106 H Calcium 7.7 L Phosphorus 2.00 L AST ALT Ammonia Albumin 03/06/22 03/06/22 03/07/22 18:04 23:50 05:14 WBC RBC Hgb Hct MCV MCH MCHC RDW Lymph % (Auto) [place] % (Auto) Lymph # (Auto) [place] # (Auto) Seg Neutrophils % Seg Neuts % (Manual) Lymphocytes % (Manual) Seg Neutrophils # Seg Neutrophils # Man Lymphocytes # (Manual) PT INR ABG pH ABG pO2 ABG HCO3 ABG O2 Saturation ABG Base Excess ABG Hemoglobin Oxyhemoglobin Sodium Potassium Chloride Carbon Dioxide BUN Creatinine Glucose POC Glucose 108 H 115 H 116 H Calcium Phosphorus AST ALT Ammonia Albumin 03/07/22 03/07/22 03/08/22 11:42 18:13 04:34 WBC RBC 2.86 L Hgb 9.2 L Hct 29.3 L MCV 103 H MCH MCHC 31 L RDW 16.9 H Lymph % (Auto) [place] % (Auto) Lymph # (Auto) [place] # (Auto) Seg Neutrophils % Seg Neuts % (Manual) Lymphocytes % (Manual) Seg Neutrophils # Seg Neutrophils # Man Lymphocytes # (Manual) PT INR ABG pH ABG pO2 ABG HCO3 ABG O2 Saturation ABG Base Excess ABG Hemoglobin Oxyhemoglobin Sodium Potassium Chloride Carbon Dioxide BUN Creatinine Glucose POC Glucose 123 H 109 H Calcium Phosphorus AST ALT Ammonia Albumin 03/08/22 03/08/22 03/08/22 04:34 11:29 16:34 WBC RBC Hgb Hct MCV MCH MCHC RDW Lymph % (Auto) [place] % (Auto) Lymph # (Auto) [place] # (Auto) Seg Neutrophils % Seg Neuts % (Manual) Lymphocytes % (Manual) Seg Neutrophils # Seg Neutrophils # Man Lymphocytes # (Manual) PT INR ABG pH ABG pO2 ABG HCO3 ABG O2 Saturation ABG Base Excess ABG Hemoglobin Oxyhemoglobin Sodium Potassium Chloride Carbon Dioxide 33 H BUN Creatinine 0.5 L Glucose 109 H POC Glucose 117 H 109 H Calcium 7.6 L Phosphorus AST ALT Ammonia Albumin 03/08/22 03/09/22 03/10/22 23:56 11:15 03:57 WBC RBC 2.99 L Hgb 9.9 L Hct 30.3 L MCV 102 H MCH 33 H MCHC RDW 16.8 H Lymph % (Auto) 13.3 L [place] % (Auto) 12.5 H Lymph # (Auto) [place] # (Auto) 1.3 H Seg Neutrophils % 72.4 H Seg Neuts % (Manual) Lymphocytes % (Manual) Seg Neutrophils # Seg Neutrophils # Man Lymphocytes # (Manual) PT INR ABG pH ABG pO2 ABG HCO3 ABG O2 Saturation ABG Base Excess ABG Hemoglobin Oxyhemoglobin Sodium Potassium Chloride Carbon Dioxide BUN Creatinine Glucose POC Glucose 106 H 110 H Calcium Phosphorus AST ALT Ammonia Albumin 03/10/22 03/10/22 03/10/22 03:57 04:50 16:04 WBC RBC Hgb Hct MCV MCH MCHC RDW Lymph % (Auto) [place] % (Auto) Lymph # (Auto) [place] # (Auto) Seg Neutrophils % Seg Neuts % (Manual) Lymphocytes % (Manual) Seg Neutrophils # Seg Neutrophils # Man Lymphocytes # (Manual) PT INR ABG pH 7.465 H ABG pO2 ABG HCO3 31.9 H ABG O2 Saturation ABG Base Excess 7.3 H ABG Hemoglobin 11.0 L Oxyhemoglobin Sodium Potassium 3.4 L Chloride Carbon Dioxide BUN Creatinine 0.6 L Glucose POC Glucose 115 H Calcium 8.1 L Phosphorus AST ALT Ammonia Albumin 1.9 L 03/11/22 03/11/22 03/11/22 04:02 04:02 04:02 WBC 12.0 H RBC 2.81 L Hgb 9.2 L Hct 29.1 L MCV 103 H MCH 33 H MCHC RDW 17.5 H Lymph % (Auto) [place] % (Auto) Lymph # (Auto) [place] # (Auto) Seg Neutrophils % Seg Neuts % (Manual) Lymphocytes % (Manual) Seg Neutrophils # Seg Neutrophils # Man Lymphocytes # (Manual) PT 16.2 H INR 1.16 H ABG pH ABG pO2 ABG HCO3 ABG O2 Saturation ABG Base Excess ABG Hemoglobin Oxyhemoglobin Sodium Potassium Chloride Carbon Dioxide BUN Creatinine 0.5 L Glucose 104 H POC Glucose Calcium 7.9 L Phosphorus AST ALT Ammonia Albumin 03/11/22 03/11/22 03/11/22 05:10 11:07 16:32 WBC RBC Hgb Hct MCV MCH MCHC RDW Lymph % (Auto) [place] % (Auto) Lymph # (Auto) [place] # (Auto) Seg Neutrophils % Seg Neuts % (Manual) Lymphocytes % (Manual) Seg Neutrophils # Seg Neutrophils # Man Lymphocytes # (Manual) PT INR ABG pH 7.476 H ABG pO2 ABG HCO3 29.7 H ABG O2 Saturation ABG Base Excess 5.7 H ABG Hemoglobin 9.1 L Oxyhemoglobin Sodium Potassium Chloride Carbon Dioxide BUN Creatinine Glucose POC Glucose 108 H 121 H Calcium Phosphorus AST ALT Ammonia Albumin 03/12/22 03/13/22 03/13/22 05:51 06:08 12:02 WBC RBC 2.73 L Hgb 9.0 L Hct 27.5 L MCV 101 H MCH 33 H MCHC RDW 17.2 H Lymph % (Auto) [place] % (Auto) Lymph # (Auto) [place] # (Auto) Seg Neutrophils % Seg Neuts % (Manual) Lymphocytes % (Manual) Seg Neutrophils # Seg Neutrophils # Man Lymphocytes # (Manual) PT INR ABG pH ABG pO2 ABG HCO3 ABG O2 Saturation ABG Base Excess ABG Hemoglobin Oxyhemoglobin Sodium Potassium Chloride Carbon Dioxide BUN Creatinine Glucose POC Glucose 116 H 111 H Calcium Phosphorus AST ALT Ammonia Albumin 03/13/22 03/13/22 03/14/22 12:48 18:17 03:58 WBC RBC 2.97 L Hgb 9.7 L Hct 30.0 L MCV 101 H MCH 33 H MCHC RDW 16.7 H Lymph % (Auto) [place] % (Auto) Lymph # (Auto) [place] # (Auto) Seg Neutrophils % Seg Neuts % (Manual) Lymphocytes % (Manual) Seg Neutrophils # Seg Neutrophils # Man Lymphocytes # (Manual) PT INR ABG pH ABG pO2 ABG HCO3 ABG O2 Saturation ABG Base Excess ABG Hemoglobin Oxyhemoglobin Sodium Potassium Chloride Carbon Dioxide BUN Creatinine Glucose POC Glucose 125 H 114 H Calcium Phosphorus AST ALT Ammonia Albumin 03/14/22 03/14/22 03/14/22 03:58 13:01 16:41 WBC RBC Hgb Hct MCV MCH MCHC RDW Lymph % (Auto) [place] % (Auto) Lymph # (Auto) [place] # (Auto) Seg Neutrophils % Seg Neuts % (Manual) Lymphocytes % (Manual) Seg Neutrophils # Seg Neutrophils # Man Lymphocytes # (Manual) PT INR ABG pH ABG pO2 ABG HCO3 ABG O2 Saturation ABG Base Excess ABG Hemoglobin Oxyhemoglobin Sodium Potassium Chloride Carbon Dioxide BUN Creatinine 0.6 L Glucose POC Glucose 118 H 109 H Calcium 8.2 L Phosphorus AST ALT Ammonia Albumin 03/16/22 03/16/22 03/17/22 05:28 05:28 23:19 WBC RBC 2.81 L Hgb 9.1 L Hct 27.8 L MCV 99 H MCH MCHC RDW 17.0 H Lymph % (Auto) [place] % (Auto) Lymph # (Auto) [place] # (Auto) Seg Neutrophils % Seg Neuts % (Manual) Lymphocytes % (Manual) Seg Neutrophils # Seg Neutrophils # Man Lymphocytes # (Manual) PT INR ABG pH ABG pO2 ABG HCO3 ABG O2 Saturation ABG Base Excess ABG Hemoglobin Oxyhemoglobin Sodium Potassium Chloride Carbon Dioxide BUN Creatinine 0.5 L Glucose POC Glucose 113 H Calcium 8.2 L Phosphorus AST ALT Ammonia Albumin
--- NOTE | 2022-03-18 12:14 | Progress Note ---
<KEATON GOLD - Last Filed: 03/18/22 19:17> Assessment and Plan Assessment and plan: This is a 51-year-old male with HTN, seizure disorder, Down syndrome, HLD, partial blindness admitted with aspiration pneumonia, probable bronchogenic carcinoma, acute hypoxic respiratory failure and acute encephalopathy Hospital course to date: 02/19/2022. Consult pulmonary for further evaluation and possible bronchoscopy. I suspect patient has component of aspiration pneumonia as well. We will obtain a speech therapy evaluation for swallowing and start empiric antibiotics. Continue O2 supplementation to maintain sats greater than 92%. 02/20/2022. Pulmonary feels that the abnormality seen on CT scan is highly unlikely for a mass given negative chest x-ray 1 month ago and no risk factors. Etiology is likely secondary to aspiration from possibly a foreign body most likely food with atelectasis of the right lower lobe. Bronchoscopy is needed in the case to evaluate to see if lung mass is there vs foreign body, but at this time not able to do because no identifiable person that is able to give consent. Continue aspiration precautions and continue speech therapy evaluation for swallowing. Keep n.p.o. for now 02/21/2022. Patient remains NPO. Consider DHT placement. Follow-up with speech therapy evaluation. Pulmonology to consider bronchoscopy if able to obtain consent. Continue IV antibiotics for aspiration pneumonia 02/22/2022. Patient remains NPO. Consider DHT placement. Follow-up with speech therapy evaluation. Pulmonology to consider bronchoscopy if able to obtain consent. Continue IV antibiotics for aspiration pneumonia 02/23/2022. DHT placed yesterday. TF initiated for nutritional support. Patient currently with strict NPO. Aspiration precautions. Pulmonology to consider bronchoscopy if able to obtain consent. Continue IV antibiotics for aspiration pneumonia 02/24: Patient was transferred to the ICU for further monitoring. This morning patient remained on high flow nasal cannula on 40 L/100% and despite repeated nasotracheal suctioning patient SPO2 remained in the 80s. Patient was placed on nonrebreather and SPO2 increased to upper 80s. Patient was subsequently intubated by anesthesia. Started on sedation. 02/25: Patient remains sedated on fentanyl, potassium and magnesium repleted. IV fluids and amlodipine discontinued. Possible bronchoscopy tomorrow. 02/26: Patient had a bronchoscopy today which showed mucus and no endobronchial lesions or masses. FiO2 was increased to 100 during and postprocedure weaning as tolerated. Repeat CXR is much improved after bronc. Given 1 L LR bolus due to hypotension. No acute events reported overnight. 02/27: Decreased PEEP, will repeat CT of chest. no acute changes overnight. 02/28: Patient was extubated today however had to be be intubated shortly after. Patient ETT looked mispositioned on x-ray and Dr. Alonzo did do a bedside bronc. Patient was briefly hypotensive and on Levophed postintubation however Levophed was quickly titrated off and patient did not require central line. No acute events reported overnight. Will obtain CT neck d/t difficulty intubating. Ethi committee consulted. 03/04: Overnight patient was hypotensive and started on IVF. Patient started on steroids as no air leak noted and hypotension and given 2 L LR 03/05: Overnight patient received bolus per RN report, no orders seen. Continue supportive care 03/03: SB on the monitor, HR as low as 37, VSS. Will continue to monitor for now. Awaiting on desicion from [facility] for possible trach and PEG. Continue daily air leak per [facility] 03/04: MAIDA overnight. Remains stable on the vent. Awaiting on desicion from [facility] for possible trach and PEG. Continue current supportive measures 03/05: MAIDA overnight. Awaiting on desicion from [facility] for possible trach and PEG. Midodrine held yesterday, HR improved. Continue current supportive measures. Daily PSV trial as tolerated per [facility] 03/06: Remains stable on the vent. Continue current supportive measures, daily PSV trial per [facility]. Awaiting on desicion for possible trach and PEG. 03/07: MAIDA overnight, remains stable. Continue daily PSV trial as tolerated. Awaiting on desicion for possible trach and PEG. 03/08: Patient failed PSV trial this am due to tachycardia and increase RR. Continue supportive measures and daily PSV trial as tolerated. Possible discussion with [facility] and [facility] on Thursday in regards to medical necessity, may need to consider two physician consent if no one is able to claim responsibility for this patient. 03/09: MAIDA overnight. Continue current supportive measures and daily PSV trail as tolerated. Awaiting on desicion for possible trach and PEG, discussion with Ethics possibly tomorrow per [facility]. 03/10: no acute events overnight, PSV today. replete potassium. 03/11: No acute events reported overnight, patient failed PSV yesterday and will repeat today. Hospital to start guardianship process. 03/12: No acute events overnight. PSV today 03/13: Patient given 500ml normal saline and started on midodrine for hyp otension. No acute events reported overnight. Failed pressure support again this morning. 03/14: No acute events reported overnight, patient blood pressure seems better therefore midodrine discontinued. RT placed on CPAP need lasted for couple hours. Will remove summers 03/15: Midodrine was restarted yesterday evening for hypotension, Summers catheter not removed due to sacral ulcer and history of retention. Unable to crush Flomax and patient will not tolerate doxazosin given hypotension. Given LR bolus this morning. If blood pressure continues to be borderline after bolus, we will adjust management as needed. CPAP as tolerated 03/16: No acute events reported overnight, patient placed on CPAP trial this morning which he failed. 03/17: RT attempted PSV which he failed again today. No acute events reported overnight. 03/18: Awaiting ethic committee's decision on Trach/PEG. Patient tolerated PSV trial for over 3 hrs today, continue daily PSV trial as tolerated. Neuro: Acute encephalopathy, h/o seizure disorder, Down syndrome, partial blindness -Intubated and off sedation -Reorientation as needed -Maintain sleep-wake cycle -aspiration/seizure precautions -As needed analgesia -CT head showed no acute abnormality -Continue Keppra Cardiac: Hypotension, h/o HTN, HLD -Cardiology consulted, appreciate recommendations -Blood pressure monitoring per protocol -d/c amlodipine -On PO Midodrine for hypotension Respiratory: Acute hypoxic respiratory failure, r/o bronchogenic carcinoma -[facility] consulted, appreciate recommendations -Intubated on 02/24 with a 8.0 at 23 at the lips but extubated 02/28 -reintubated 02/28 with 8.0 OETT -Vent settings: AC rate 14, TV 360, PEEP 6, FO2 30% -See RT notes for titration -VAP bundle -SPO2 monitoring -02/18 CTA chest showed no evidence of pulmonary embolism, suspected bronchogenic carcinoma with associated obstruction of the right lower lobe proximal bronchus segment, 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 adenopathy and suspected to left lower lobe metastatic nodule -02/26 Bronch->mucous, no lesion noted -02/27 CT chest showed right mainstem bronchus patent with small amount of interval bronchial fluid which may be mucus (this may account for the appearance of the prior CTA chest fluid-filled airway rather than entering bronchial lesion), previously seen complete left lower lobe since related to bronchial occlusion has significantly improved, there is persistent compressive atelectasis in the right lower lung secondary to the pleural effusion, bilateral pleural effusions, right lung pneumonia -CT neck showed no acute changes - IV Steroids stopped GI: Moderate protein calorie malnutrition -PPI -NTR consulted for tube feedings -BR: Senokot S : Hypernatremia (resolved) -FWF 200 ml q4 hr -Monitor intake and output -Renally dose medications -Avoid nephrotoxic medications -Trend BMP ID: Aspiration PNA -S/p Rocephin for 5 days (02/19-02/24) -Monitor WBC and temperature curve Endo: NAD -Avoid hypoglycemia -Accu-Cheks every 6 -Avoid hypoglycemia Heme: NAD -Trend CBC -Transfuse hemoglobin less than 7 -SCDs to BLE while in bed The high probability of a clinically significant, sudden or life threatening deterioration of the [resp] system(s) required my full and direct attention, intervention and personal management. The aggregate critical care time was [60] minutes. This time is in addition to time spent performing reported procedures but includes the following: [x] Data Review and interpretation [x] Patient assessment and monitoring of vital signs [x] Documentation [x] Medication orders and management Disposition Plan: ICU Total Time Spent with Patient (Minutes): 60 Hospitalist Physical - Constitutional Vitals: Temp Pulse Resp BP Pulse Ox 97.1 F L 87 17 115/89 99 03/18/22 11:50 03/18/22 10:00 03/18/22 10:00 03/18/22 10:00 03/18/22 10:00 General appearance: Present: no acute distress, well-nourished HEART Score - HEART Score Troponin: Troponin T < 0.010 ng/mL (0.00-0.029) 02/18/22 21:02 Results - Labs CBC & Chem 7: 03/16/22 05:28 03/16/22 05:28 Labs: Laboratory Last Values WBC 6.4 K/mm3 (4.5-11.0) 03/16/22 05:28 RBC 2.81 M/mm3 (3.65-5.03) L 03/16/22 05:28 Hgb 9.1 gm/dl (11.8-15.2) L 03/16/22 05:28 Hct 27.8 % (35.5-45.6) L 03/16/22 05:28 MCV 99 fl (84-94) H 03/16/22 05:28 MCH 32 pg (28-32) 03/16/22 05:28 MCHC 33 % (32-34) 03/16/22 05:28 RDW 17.0 % (13.2-15.2) H 03/16/22 05:28 Plt Count 355 K/mm3 (140-440) 03/16/22 05:28 Lymph % (Auto) 13.3 % (13.4-35.0) L 03/10/22 03:57 [place] % (Auto) 12.5 % (0.0-7.3) H 03/10/22 03:57 Eos % (Auto) 1.4 % (0.0-4.3) 03/10/22 03:57 Baso % (Auto) 0.4 % (0.0-1.8) 03/10/22 03:57 Lymph # (Auto) 1.3 K/mm3 (1.2-5.4) 03/10/22 03:57 [place] # (Auto) 1.3 K/mm3 (0.0-0.8) H 03/10/22 03:57 Eos # (Auto) 0.1 K/mm3 (0.0-0.4) 03/10/22 03:57 Baso # (Auto) 0.0 K/mm3 (0.0-0.1) 03/10/22 03:57 Add Manual Diff Complete 03/03/22 03:54 Total Counted 100 03/03/22 03:54 Seg Neutrophils % 72.4 % (40.0-70.0) H 03/10/22 03:57 Seg Neuts % (Manual) 95.0 % (40.0-70.0) H 03/03/22 03:54 Band Neutrophils % 0 % 03/03/22 03:54 Lymphocytes % (Manual) 3.0 % (13.4-35.0) L 03/03/22 03:54 Reactive Lymphs % (Man) 0 % 03/03/22 03:54 Monocytes % (Manual) 2.0 % (0.0-7.3) 03/03/22 03:54 Eosinophils % (Manual) 0 % (0.0-4.3) 03/03/22 03:54 Basophils % (Manual) 0 % (0.0-1.8) 03/03/22 03:54 Metamyelocytes % 0 % 03/03/22 03:54 Myelocytes % 0 % 03/03/22 03:54 Promyelocytes % 0 % 03/03/22 03:54 Blast Cells % 0 % 03/03/22 03:54 Nucleated RBC % Not Reportable 03/03/22 03:54 Seg Neutrophils # 7.4 K/mm3 (1.8-7.7) 03/10/22 03:57 Seg Neutrophils # Man 18.5 K/mm3 (1.8-7.7) H 03/03/22 03:54 Band Neutrophils # 0.0 K/mm3 03/03/22 03:54 Lymphocytes # (Manual) 0.6 K/mm3 (1.2-5.4) L 03/03/22 03:54 Abs React Lymphs (Man) 0.0 K/mm3 03/03/22 03:54 Monocytes # (Manual) 0.4 K/mm3 (0.0-0.8) 03/03/22 03:54 Eosinophils # (Manual) 0.0 K/mm3 (0.0-0.4) 03/03/22 03:54 Basophils # (Manual) 0.0 K/mm3 (0.0-0.1) 03/03/22 03:54 Metamyelocytes # 0.0 K/mm3 03/03/22 03:54 Myelocytes # 0.0 K/mm3 03/03/22 03:54 Promyelocytes # 0.0 K/mm3 03/03/22 03:54 Blast Cells # 0.0 K/mm3 03/03/22 03:54 WBC Morphology Not Reportable 03/03/22 03:54 Hypersegmented Neuts Not Reportable 03/03/22 03:54 Hyposegmented Neuts Not Reportable 03/03/22 03:54 Hypogranular Neuts Not Reportable 03/03/22 03:54 Smudge Cells Not Reportable 03/03/22 03:54 Toxic Granulation Not Reportable 03/03/22 03:54 Toxic Vacuolation Not Reportable 03/03/22 03:54 Dohle Bodies Not Reportable 03/03/22 03:54 Pelger-Huet Anomaly Not Reportable 03/03/22 03:54 Lakshmi Rods Not Reportable 03/03/22 03:54 Platelet Estimate Consistent w auto 03/03/22 03:54 Clumped Platelets Not Reportable 03/03/22 03:54 Plt Clumps, EDTA Not Reportable 03/03/22 03:54 Large Platelets Not Reportable 03/03/22 03:54 Giant Platelets Not Reportable 03/03/22 03:54 Platelet Satelliting Not Reportable 03/03/22 03:54 Plt Morphology Comment Not Reportable 03/03/22 03:54 RBC Morphology Not Reportable 03/03/22 03:54 Dimorphic RBCs Not Reportable 03/03/22 03:54 Polychromasia Not Reportable 03/03/22 03:54 Hypochromasia Not Reportable 03/03/22 03:54 Poikilocytosis Not Reportable 03/03/22 03:54 Anisocytosis 1+ 03/03/22 03:54 Microcytosis Not Reportable 03/03/22 03:54 Macrocytosis Not Reportable 03/03/22 03:54 Spherocytes Not Reportable 03/03/22 03:54 Pappenheimer Bodies Not Reportable 03/03/22 03:54 Sickle Cells Not Reportable 03/03/22 03:54 Target Cells Not Reportable 03/03/22 03:54 Tear Drop Cells Not Reportable 03/03/22 03:54 Ovalocytes Not Reportable 03/03/22 03:54 Helmet Cells Not Reportable 03/03/22 03:54 Orell[place]rrigon Bodies Not Reportable 03/03/22 03:54 [place] Rings Not Reportable 03/03/22 03:54 Hselby Cells Not Reportable 03/03/22 03:54 Bite Cells Not Reportable 03/03/22 03:54 Crenated Cell Not Reportable 03/03/22 03:54 Elliptocytes Not Reportable 03/03/22 03:54 Acanthocytes (Spur) Not Reportable 03/03/22 03:54 Rouleaux Not Reportable 03/03/22 03:54 Hemoglobin C Crystals Not Reportable 03/03/22 03:54 Schistocytes Not Reportable 03/03/22 03:54 Malaria parasites Not Reportable 03/03/22 03:54 Cash Bodies Not Reportable 03/03/22 03:54 Hem Pathologist Commnt No 03/03/22 03:54 PT 16.2 Sec. (12.2-14.9) H 03/11/22 04:02 INR 1.16 (0.87-1.13) H 03/11/22 04:02 ABG pH 7.476 pH Units (7.350-7.450) H 03/11/22 05:10 ABG pCO2 41.2 mm Hg 03/11/22 05:10 ABG pO2 84.0 mm Hg (80.0-90.0) 03/11/22 05:10 ABG HCO3 29.7 mmol/L (20.0-26.0) H 03/11/22 05:10 ABG O2 Saturation 97.1 % (95.0-99.0) 03/11/22 05:10 ABG O2 Content 12.3 (0.0-44) 03/11/22 05:10 ABG Base Excess 5.7 mmol/L (-2.0-3.0) H 03/11/22 05:10 ABG Hemoglobin 9.1 gm/dl (14.0-18.0) L 03/11/22 05:10 ABG Carboxyhemoglobin 1.7 % (0.0-5.0) 03/11/22 05:10 ABG Methemoglobin 0.5 % (0.0-1.5) 03/11/22 05:10 Oxyhemoglobin 95.0 % (95.0-99.0) 03/11/22 05:10 FiO2 30 % 03/11/22 05:10 Sodium 142 mmol/L (137-145) 03/16/22 05:28 Potassium 4.2 mmol/L (3.6-5.0) 03/16/22 05:28 Chloride 105.0 mmol/L (98-107) 03/16/22 05:28 Carbon Dioxide 29 mmol/L (22-30) 03/16/22 05:28 Anion Gap 12 mmol/L 03/16/22 05:28 BUN 17 mg/dL (9-20) 03/16/22 05:28 Creatinine 0.5 mg/dL (0.8-1.3) L 03/16/22 05:28 Estimated GFR > 60 ml/min 03/16/22 05:28 BUN/Creatinine Ratio 34 % 03/16/22 05:28 Glucose 88 mg/dL (75-100) 03/16/22 05:28 POC Glucose 93 mg/dL (70-105) 03/18/22 05:10 Lactic Acid 1.20 mmol/L (0.7-2.0) 02/18/22 21:02 Calcium 8.2 mg/dL (8.4-10.2) L 03/16/22 05:28 Phosphorus 4.10 mg/dL (2.5-4.5) 03/14/22 03:58 Magnesium 2.10 mg/dL (1.7-2.3) 03/14/22 03:58 Total Bilirubin 0.30 mg/dL (0.1-1.2) 03/10/22 03:57 AST 17 units/L (5-40) 03/10/22 03:57 ALT 18 units/L (7-56) 03/10/22 03:57 Alkaline Phosphatase 89 units/L (35-129) 03/10/22 03:57 Ammonia 14.0 umol/L (25-60) L 02/18/22 23:22 Troponin T < 0.010 ng/mL (0.00-0.029) 02/18/22 21:02 Total Protein 6.6 g/dL (6.3-8.2) 03/10/22 03:57 Albumin 1.9 g/dL (3.9-5) L 03/10/22 03:57 Albumin/Globulin Ratio 0.4 % 03/10/22 03:57 Urine Color Dark yellow (Yellow) 02/18/22 Unknown Urine Turbidity Clear (Clear) 02/18/22 Unknown Urine pH 7.0 (5.0-7.0) 02/18/22 Unknown Ur Specific [place] 1.015 (1.003-1.030) 02/18/22 Unknown Urine Protein <15 mg/dl mg/dL (Negative) 02/18/22 Unknown Urine Glucose (UA) Negative mg/dL (Negative) 02/18/22 Unknown Urine Ketones Negative mg/dL (Negative) 02/18/22 Unknown Urine Blood Trace (Negative) 02/18/22 Unknown Urine Nitrite Negative (Negative) 02/18/22 Unknown Urine Bilirubin Negative (Negative) 02/18/22 Unknown Urine Urobilinogen < 2.0 mg/dL (<2.0) 02/18/22 Unknown Ur Leukocyte Esterase Negative (Negative) 02/18/22 Unknown Urine WBC (Auto) 2.0 /HPF (0.0-6.0) 02/18/22 Unknown Urine RBC (Auto) 9.0 /HPF (0.0-6.0) 02/18/22 Unknown Urine Mucus Few /HPF 02/18/22 Unknown Urine Opiates Screen Negative 02/18/22 Unknown Urine Methadone Screen Negative 02/18/22 Unknown Ur Barbiturates Screen Negative 02/18/22 Unknown Ur Phencyclidine Scrn Negative 02/18/22 Unknown Ur Amphetamines Screen Negative 02/18/22 Unknown U Benzodiazepines Scrn Negative 02/18/22 Unknown Urine Cocaine Screen Negative 02/18/22 Unknown U Marijuana (THC) Screen Negative 02/18/22 Unknown Drugs of Abuse Note Disclamer 02/18/22 Unknown Plasma/Serum Alcohol < 0.01 % (0-0.07) 02/18/22 21:02 Summers/IV: Voiding Method Indwelling Catheter Active Medications - Current Medications Current Medications: Generic Name Dose Route Start Last Admin Trade Name Freq PRN Reason Stop Dose Admin Acetaminophen 650 mg 03/03/22 09:00 Acetaminophen 325 Mg/10.15 Ml Oral Liqd Unit Dose FEEDTUBE Q4H PRN Pain, Mild (1-3); TEMP > 100.4 Albuterol 2.5 mg 03/12/22 20:00 03/18/22 08:11 Albuterol 2.5 Mg/3 Ml Nebu IH 2.5 mg Q6HRT LAZARUS Administration Famotidine 20 mg 02/25/22 10:00 03/18/22 09:31 Famotidine 20 Mg Tab FEEDTUBE 20 mg BID LAZARUS Administration Heparin Sodium (Porcine) 5,000 unit 02/19/22 06:00 03/18/22 05:12 Heparin 5,000 Unit/1 Ml Vial SUB-Q 5,000 unit Q8HR LAZARUS Administration Hydrophilic Ointment 1 applic 02/24/22 15:05 Lip Therapy Vaseline TP Q2HR PRN Dry Lips Levetiracetam 500 mg 02/25/22 22:00 03/18/22 09:31 Levetiracetam 500 Mg/5 Ml Oral Liqd FEEDTUBE 500 mg BID LAZARUS Administration Levothyroxine Sodium 25 mcg 02/26/22 06:00 03/18/22 05:12 Levothyroxine 25 Mcg Tab FEEDTUBE 25 mcg QAM@0600 LAZARUS Administration Magnesium Hydroxide 30 ml 02/19/22 02:02 Magnesium Hydroxide (Mom) Oral Liqd Udc PO Q4H PRN Constipation Midodrine 2.5 mg 03/14/22 17:20 03/18/22 07:35 Midodrine 2.5 Mg Tab PO 2.5 mg TID@0800,1200,1600 LAZARUS Administration Multi-Ingred Cream/Lotion/Oil/Oint 1 applic 02/24/22 15:05 Mineral Oil/Petrolatum, White Ophth Oint 3.5 Gm OU Q4HR PRN Dry Eye(s) Ondansetron HCl 4 mg 02/19/22 02:02 Ondansetron 4 Mg/2 Ml Inj IV Q8H PRN Nausea And Vomiting Pravastatin Sodium 40 mg 02/25/22 22:00 03/17/22 21:54 Pravastatin 40 Mg Tab FEEDTUBE 40 mg QHS LAZARUS Administration Senna/Docusate Sodium 1 tab 02/24/22 22:00 03/18/22 09:31 Sennosides/Docusate Sodium 8.6/50 Mg Tab FEEDTUBE 1 tab BID LAZARUS Administration Sodium Chloride 10 ml 02/19/22 10:00 03/18/22 09:31 Sodium Chloride 0.9% 10 Ml Flush Syringe IV 10 ml BID LAZARUS Administration Sodium Chloride 10 ml 02/19/22 02:02 03/03/22 14:21 Sodium Chloride 0.9% 10 Ml Flush Syringe IV 10 ml PRN PRN Administration LINE FLUSH Nutrition/Malnutrition Assess - Dietary Evaluation Nutrition/Malnutrition Findings: Nutrition Notes Start: 02/19/22 14:29 Freq: Status: Active Protocol: Document 03/14/22 14:33 IVAN (Rec: 03/14/22 14:36 IVAN [id number]) Nutrition Notes Initial or Follow up Reassessment Current Diagnosis Hypertension,Respiratory Failure,Hyperlipidemia Other Pertinent Diagnosis Asp pneu, acute encephalopathy , seizure d/o, partial blindness Current Diet TF - Vital AF 1.2 at 50ml/hr Labs/Tests Reviewed Pertinent Medications Reviewed Height 5 ft 3 in Weight 63.2 kg [place] Body Weight (kg) 56.36 BMI 24.7 Weight Status Appropriate Subjective/Other Information Pt remains on vent support; no trach or PEG placed yet. Pt continues to tolerate TF. BM x 1 today. Percent of energy/protein needs met: 90% energy 100% pro Burn Absent Trauma Absent #1 Nutrition Diagnosis Inadequate oral intake Diagnosis Progress(for reassessment Continues documentation) Is patient on ventilator? Yes Is Patient Ambulatory and/or Out of Bed No REE-([facility]-confined to bed) [phone] Calculation [facility] Additional Notes Pro needs 1.2-2g/k-126g/ day Fluid needs 1ml/kcal Nutrition Intervention Nutrition Support: Continue Vital AF 1.2 at 50ml/ hr with 75ml water flush q4h. Kcal 1,440 Protein (gm) 90 Carbohydrates (gm) 133 Fat (gm) 65 Fluid (mL) 973 Fiber (gm) 6 Goal #1 TF tolerance Goal #2 TF to meet at least 75% energy and pro needs Follow-Up By: 03/21/22 Additional Comments F/U: stable TF, trach/PEG placement, vent status <JOAQUIN ROBIN - Last Filed: 03/19/22 07:28> Assessment and Plan Assessment and plan: I saw and evaluated the patient. I agree with the findings and the plan of care as documented in the Nurse Practitioner's~note, with the following corrections and additions. Hospitalist Physical - Constitutional Vitals: Temp Pulse Resp BP Pulse Ox 98 F 67 14 90/50 100 03/19/22 04:00 03/19/22 07:00 03/19/22 07:00 03/19/22 07:00 03/19/22 07:00 HEART Score - HEART Score Troponin: Troponin T < 0.010 ng/mL (0.00-0.029) 02/18/22 21:02 Results - Labs CBC & Chem 7: 03/16/22 05:28 03/16/22 05:28 Labs: Laboratory Last Values WBC 6.4 K/mm3 (4.5-11.0) 03/16/22 05:28 RBC 2.81 M/mm3 (3.65-5.03) L 03/16/22 05:28 Hgb 9.1 gm/dl (11.8-15.2) L 03/16/22 05:28 Hct 27.8 % (35.5-45.6) L 03/16/22 05:28 MCV 99 fl (84-94) H 03/16/22 05:28 MCH 32 pg (28-32) 03/16/22 05:28 MCHC 33 % (32-34) 03/16/22 05:28 RDW 17.0 % (13.2-15.2) H 03/16/22 05:28 Plt Count 355 K/mm3 (140-440) 03/16/22 05:28 Lymph % (Auto) 13.3 % (13.4-35.0) L 03/10/22 03:57 [place] % (Auto) 12.5 % (0.0-7.3) H 03/10/22 03:57 Eos % (Auto) 1.4 % (0.0-4.3) 03/10/22 03:57 Baso % (Auto) 0.4 % (0.0-1.8) 03/10/22 03:57 Lymph # (Auto) 1.3 K/mm3 (1.2-5.4) 03/10/22 03:57 [place] # (Auto) 1.3 K/mm3 (0.0-0.8) H 03/10/22 03:57 Eos # (Auto) 0.1 K/mm3 (0.0-0.4) 03/10/22 03:57 Baso # (Auto) 0.0 K/mm3 (0.0-0.1) 03/10/22 03:57 Add Manual Diff Complete 03/03/22 03:54 Total Counted 100 03/03/22 03:54 Seg Neutrophils % 72.4 % (40.0-70.0) H 03/10/22 03:57 Seg Neuts % (Manual) 95.0 % (40.0-70.0) H 03/03/22 03:54 Band Neutrophils % 0 % 03/03/22 03:54 Lymphocytes % (Manual) 3.0 % (13.4-35.0) L 03/03/22 03:54 Reactive Lymphs % (Man) 0 % 03/03/22 03:54 Monocytes % (Manual) 2.0 % (0.0-7.3) 03/03/22 03:54 Eosinophils % (Manual) 0 % (0.0-4.3) 03/03/22 03:54 Basophils % (Manual) 0 % (0.0-1.8) 03/03/22 03:54 Metamyelocytes % 0 % 03/03/22 03:54 Myelocytes % 0 % 03/03/22 03:54 Promyelocytes % 0 % 03/03/22 03:54 Blast Cells % 0 % 03/03/22 03:54 Nucleated RBC % Not Reportable 03/03/22 03:54 Seg Neutrophils # 7.4 K/mm3 (1.8-7.7) 03/10/22 03:57 Seg Neutrophils # Man 18.5 K/mm3 (1.8-7.7) H 03/03/22 03:54 Band Neutrophils # 0.0 K/mm3 03/03/22 03:54 Lymphocytes # (Manual) 0.6 K/mm3 (1.2-5.4) L 03/03/22 03:54 Abs React Lymphs (Man) 0.0 K/mm3 03/03/22 03:54 Monocytes # (Manual) 0.4 K/mm3 (0.0-0.8) 03/03/22 03:54 Eosinophils # (Manual) 0.0 K/mm3 (0.0-0.4) 03/03/22 03:54 Basophils # (Manual) 0.0 K/mm3 (0.0-0.1) 03/03/22 03:54 Metamyelocytes # 0.0 K/mm3 03/03/22 03:54 Myelocytes # 0.0 K/mm3 03/03/22 03:54 Promyelocytes # 0.0 K/mm3 03/03/22 03:54 Blast Cells # 0.0 K/mm3 03/03/22 03:54 WBC Morphology Not Reportable 03/03/22 03:54 Hypersegmented Neuts Not Reportable 03/03/22 03:54 Hyposegmented Neuts Not Reportable 03/03/22 03:54 Hypogranular Neuts Not Reportable 03/03/22 03:54 Smudge Cells Not Reportable 03/03/22 03:54 Toxic Granulation Not Reportable 03/03/22 03:54 Toxic Vacuolation Not Reportable 03/03/22 03:54 Dohle Bodies Not Reportable 03/03/22 03:54 Pelger-Huet Anomaly Not Reportable 03/03/22 03:54 Lakshmi Rods Not Reportable 03/03/22 03:54 Platelet Estimate Consistent w auto 03/03/22 03:54 Clumped Platelets Not Reportable 03/03/22 03:54 Plt Clumps, EDTA Not Reportable 03/03/22 03:54 Large Platelets Not Reportable 03/03/22 03:54 Giant Platelets Not Reportable 03/03/22 03:54 Platelet Satelliting Not Reportable 03/03/22 03:54 Plt Morphology Comment Not Reportable 03/03/22 03:54 RBC Morphology Not Reportable 03/03/22 03:54 Dimorphic RBCs Not Reportable 03/03/22 03:54 Polychromasia Not Reportable 03/03/22 03:54 Hypochromasia Not Reportable 03/03/22 03:54 Poikilocytosis Not Reportable 03/03/22 03:54 Anisocytosis 1+ 03/03/22 03:54 Microcytosis Not Reportable 03/03/22 03:54 Macrocytosis Not Reportable 03/03/22 03:54 Spherocytes Not Reportable 03/03/22 03:54 Pappenheimer Bodies Not Reportable 03/03/22 03:54 Sickle Cells Not Reportable 03/03/22 03:54 Target Cells Not Reportable 03/03/22 03:54 Tear Drop Cells Not Reportable 03/03/22 03:54 Ovalocytes Not Reportable 03/03/22 03:54 Helmet Cells Not Reportable 03/03/22 03:54 [place] Bodies Not Reportable 03/03/22 03:54 [place] Rings Not Reportable 03/03/22 03:54 [place] Cells Not Reportable 03/03/22 03:54 Bite Cells Not Reportable 03/03/22 03:54 Crenated Cell Not Reportable 03/03/22 03:54 Elliptocytes Not Reportable 03/03/22 03:54 Acanthocytes (Spur) Not Reportable 03/03/22 03:54 Rouleaux Not Reportable 03/03/22 03:54 Hemoglobin C Crystals Not Reportable 03/03/22 03:54 Schistocytes Not Reportable 03/03/22 03:54 Malaria parasites Not Reportable 03/03/22 03:54 Cash Bodies Not Reportable 03/03/22 03:54 Hem Pathologist Commnt No 03/03/22 03:54 PT 16.2 Sec. (12.2-14.9) H 03/11/22 04:02 INR 1.16 (0.87-1.13) H 03/11/22 04:02 ABG pH 7.476 pH Units (7.350-7.450) H 03/11/22 05:10 ABG pCO2 41.2 mm Hg 03/11/22 05:10 ABG pO2 84.0 mm Hg (80.0-90.0) 03/11/22 05:10 ABG HCO3 29.7 mmol/L (20.0-26.0) H 03/11/22 05:10 ABG O2 Saturation 97.1 % (95.0-99.0) 03/11/22 05:10 ABG O2 Content 12.3 (0.0-44) 03/11/22 05:10 ABG Base Excess 5.7 mmol/L (-2.0-3.0) H 03/11/22 05:10 ABG Hemoglobin 9.1 gm/dl (14.0-18.0) L 03/11/22 05:10 ABG Carboxyhemoglobin 1.7 % (0.0-5.0) 03/11/22 05:10 ABG Methemoglobin 0.5 % (0.0-1.5) 03/11/22 05:10 Oxyhemoglobin 95.0 % (95.0-99.0) 03/11/22 05:10 FiO2 30 % 03/11/22 05:10 Sodium 142 mmol/L (137-145) 03/16/22 05:28 Potassium 4.2 mmol/L (3.6-5.0) 03/16/22 05:28 Chloride 105.0 mmol/L (98-107) 03/16/22 05:28 Carbon Dioxide 29 mmol/L (22-30) 03/16/22 05:28 Anion Gap 12 mmol/L 03/16/22 05:28 BUN 17 mg/dL (9-20) 03/16/22 05:28 Creatinine 0.5 mg/dL (0.8-1.3) L 03/16/22 05:28 Estimated GFR > 60 ml/min 03/16/22 05:28 BUN/Creatinine Ratio 34 % 03/16/22 05:28 Glucose 88 mg/dL (75-100) 03/16/22 05:28 POC Glucose 96 mg/dL (70-105) 03/19/22 06:14 Lactic Acid 1.20 mmol/L (0.7-2.0) 02/18/22 21:02 Calcium 8.2 mg/dL (8.4-10.2) L 03/16/22 05:28 Phosphorus 4.10 mg/dL (2.5-4.5) 03/14/22 03:58 Magnesium 2.10 mg/dL (1.7-2.3) 03/14/22 03:58 Total Bilirubin 0.30 mg/dL (0.1-1.2) 03/10/22 03:57 AST 17 units/L (5-40) 03/10/22 03:57 ALT 18 units/L (7-56) 03/10/22 03:57 Alkaline Phosphatase 89 units/L (35-129) 03/10/22 03:57 Ammonia 14.0 umol/L (25-60) L 02/18/22 23:22 Troponin T < 0.010 ng/mL (0.00-0.029) 02/18/22 21:02 Total Protein 6.6 g/dL (6.3-8.2) 03/10/22 03:57 Albumin 1.9 g/dL (3.9-5) L 03/10/22 03:57 Albumin/Globulin Ratio 0.4 % 03/10/22 03:57 Urine Color Dark yellow (Yellow) 02/18/22 Unknown Urine Turbidity Clear (Clear) 02/18/22 Unknown Urine pH 7.0 (5.0-7.0) 02/18/22 Unknown Ur Specific [place] 1.015 (1.003-1.030) 02/18/22 Unknown Urine Protein <15 mg/dl mg/dL (Negative) 02/18/22 Unknown Urine Glucose (UA) Negative mg/dL (Negative) 02/18/22 Unknown Urine Ketones Negative mg/dL (Negative) 02/18/22 Unknown Urine Blood Trace (Negative) 02/18/22 Unknown Urine Nitrite Negative (Negative) 02/18/22 Unknown Urine Bilirubin Negative (Negative) 02/18/22 Unknown Urine Urobilinogen < 2.0 mg/dL (<2.0) 02/18/22 Unknown Ur Leukocyte Esterase Negative (Negative) 02/18/22 Unknown Urine WBC (Auto) 2.0 /HPF (0.0-6.0) 02/18/22 Unknown Urine RBC (Auto) 9.0 /HPF (0.0-6.0) 02/18/22 Unknown Urine Mucus Few /HPF 02/18/22 Unknown Urine Opiates Screen Negative 02/18/22 Unknown Urine Methadone Screen Negative 02/18/22 Unknown Ur Barbiturates Screen Negative 02/18/22 Unknown Ur Phencyclidine Scrn Negative 02/18/22 Unknown Ur Amphetamines Screen Negative 02/18/22 Unknown U Benzodiazepines Scrn Negative 02/18/22 Unknown Urine Cocaine Screen Negative 02/18/22 Unknown U Marijuana (THC) Screen Negative 02/18/22 Unknown Drugs of Abuse Note Disclamer 02/18/22 Unknown Plasma/Serum Alcohol < 0.01 % (0-0.07) 02/18/22 21:02 Summers/IV: Voiding Method Indwelling Catheter Active Medications - Current Medications Current Medications: Generic Name Dose Route Start Last Admin Trade Name Freq PRN Reason Stop Dose Admin Acetaminophen 650 mg 03/03/22 09:00 Acetaminophen 325 Mg/10.15 Ml Oral Liqd Unit Dose FEEDTUBE Q4H PRN Pain, Mild (1-3); TEMP > 100.4 Albuterol 2.5 mg 03/12/22 20:00 03/19/22 02:35 Albuterol 2.5 Mg/3 Ml Nebu IH 2.5 mg Q6HRT LAZARUS Administration Famotidine 20 mg 02/25/22 10:00 03/18/22 21:42 Famotidine 20 Mg Tab FEEDTUBE 20 mg BID LAZARUS Administration Heparin Sodium (Porcine) 5,000 unit 02/19/22 06:00 03/19/22 05:42 Heparin 5,000 Unit/1 Ml Vial SUB-Q 5,000 unit Q8HR LAZARUS Administration Hydrophilic Ointment 1 applic 02/24/22 15:05 Lip Therapy Vaseline TP Q2HR PRN Dry Lips Levetiracetam 500 mg 02/25/22 22:00 03/18/22 21:42 Levetiracetam 500 Mg/5 Ml Oral Liqd FEEDTUBE 500 mg BID LAZARUS Administration Levothyroxine Sodium 25 mcg 02/26/22 06:00 03/19/22 05:42 Levothyroxine 25 Mcg Tab FEEDTUBE 25 mcg QAM@0600 LAZARUS Administration Magnesium Hydroxide 30 ml 02/19/22 02:02 Magnesium Hydroxide (Mom) Oral Liqd Udc PO Q4H PRN Constipation Midodrine 2.5 mg 03/14/22 17:20 03/18/22 16:49 Midodrine 2.5 Mg Tab PO 2.5 mg TID@0800,1200,1600 LAZARUS Administration Multi-Ingred Cream/Lotion/Oil/Oint 1 applic 02/24/22 15:05 Mineral Oil/Petrolatum, White Ophth Oint 3.5 Gm OU Q4HR PRN Dry Eye(s) Ondansetron HCl 4 mg 02/19/22 02:02 Ondansetron 4 Mg/2 Ml Inj IV Q8H PRN Nausea And Vomiting Pravastatin Sodium 40 mg 02/25/22 22:00 03/18/22 21:42 Pravastatin 40 Mg Tab FEEDTUBE 40 mg QHS LAZARUS Administration Senna/Docusate Sodium 1 tab 02/24/22 22:00 03/18/22 21:42 Sennosides/Docusate Sodium 8.6/50 Mg Tab FEEDTUBE 1 tab BID LAZARUS Administration Sodium Chloride 10 ml 02/19/22 10:00 03/18/22 21:42 Sodium Chloride 0.9% 10 Ml Flush Syringe IV 10 ml BID LAZARUS Administration Sodium Chloride 10 ml 02/19/22 02:02 03/03/22 14:21 Sodium Chloride 0.9% 10 Ml Flush Syringe IV 10 ml PRN PRN Administration LINE FLUSH Nutrition/Malnutrition Assess - Dietary Evaluation Nutrition/Malnutrition Findings: Nutrition Notes Start: 02/19/22 14:29 Freq: Status: Active Protocol: Document 03/14/22 14:33 NHALL (Rec: 03/14/22 14:36 IVAN [id number]) Nutrition Notes Initial or Follow up Reassessment Current Diagnosis Hypertension,Respiratory Failure,Hyperlipidemia Other Pertinent Diagnosis Asp pneu, acute encephalopathy , seizure d/o, partial blindness Current Diet TF - Vital AF 1.2 at 50ml/hr Labs/Tests Reviewed Pertinent Medications Reviewed Height 5 ft 3 in Weight 63.2 kg [place] Body Weight (kg) 56.36 BMI 24.7 Weight Status Appropriate Subjective/Other Information Pt remains on vent support; no trach or PEG placed yet. Pt continues to tolerate TF. BM x 1 today. Percent of energy/protein needs met: 90% energy 100% pro Burn Absent Trauma Absent #1 Nutrition Diagnosis Inadequate oral intake Diagnosis Progress(for reassessment Continues documentation) Is patient on ventilator? Yes Is Patient Ambulatory and/or Out of Bed No REE-(Pender-[place] Jeri-confined to bed) [phone] Calculation Used for Recommendations [facility] Additional Notes Pro needs 1.2-2g/k-126g/ day Fluid needs 1ml/kcal Nutrition Intervention Nutrition Support: Continue Vital AF 1.2 at 50ml/ hr with 75ml water flush q4h. Kcal 1,440 Protein (gm) 90 Carbohydrates (gm) 133 Fat (gm) 65 Fluid (mL) 973 Fiber (gm) 6 Goal #1 TF tolerance Goal #2 TF to meet at least 75% energy and pro needs Follow-Up By: 03/21/22 Additional Comments F/U: stable TF, trach/PEG placement, vent status
[2022-03-18] MEDS: PRAVASTATIN 40 MG TAB FEEDTUBE SCH (21:42)
[2022-03-19] MEDS: ALBUTEROL 2.5 MG/3 ML NEBU IH SCH ×4 (02:35→19:12)
[2022-03-19] MEDS: HEPARIN 5,000 UNIT/1 ML VIAL SUB-Q SCH ×3 (05:42→22:16)
[2022-03-19] MEDS: LEVOTHYROXINE 25 MCG TAB FEEDTUBE SCH (05:42)
[2022-03-19] MEDS: MIDODRINE 2.5 MG TAB PO SCH (08:32)
[2022-03-19] MEDS: FAMOTIDINE 20 MG TAB FEEDTUBE SCH ×2 (09:38→22:16)
[2022-03-19] MEDS: SENNOSIDES/DOCUSATE SODIUM 8.6/50 MG TAB FEEDTUBE SCH ×2 (09:38→22:16)
[2022-03-19] MEDS: levETIRAcetam 500 MG/5 ML ORAL LIQD FEEDTUBE SCH ×2 (09:39→22:16)
--- NOTE | 2022-03-19 11:29 | Progress Note ---
<KEATON GOLD - Last Filed: 03/19/22 17:55> Assessment and Plan Assessment and plan: This is a 51-year-old male with HTN, seizure disorder, Down syndrome, HLD, partial blindness admitted with aspiration pneumonia, probable bronchogenic carcinoma, acute hypoxic respiratory failure and acute encephalopathy Hospital course to date: 02/19/2022. Consult pulmonary for further evaluation and possible bronchoscopy. I suspect patient has component of aspiration pneumonia as well. We will obtain a speech therapy evaluation for swallowing and start empiric antibiotics. Continue O2 supplementation to maintain sats greater than 92%. 02/20/2022. Pulmonary feels that the abnormality seen on CT scan is highly unlikely for a mass given negative chest x-ray 1 month ago and no risk factors. Etiology is likely secondary to aspiration from possibly a foreign body most likely food with atelectasis of the right lower lobe. Bronchoscopy is needed in the case to evaluate to see if lung mass is there vs foreign body, but at this time not able to do because no identifiable person that is able to give consent. Continue aspiration precautions and continue speech therapy evaluation for swallowing. Keep n.p.o. for now 02/21/2022. Patient remains NPO. Consider DHT placement. Follow-up with speech therapy evaluation. Pulmonology to consider bronchoscopy if able to obtain consent. Continue IV antibiotics for aspiration pneumonia 02/22/2022. Patient remains NPO. Consider DHT placement. Follow-up with speech therapy evaluation. Pulmonology to consider bronchoscopy if able to obtain consent. Continue IV antibiotics for aspiration pneumonia 02/23/2022. DHT placed yesterday. TF initiated for nutritional support. Patient currently with strict NPO. Aspiration precautions. Pulmonology to consider bronchoscopy if able to obtain consent. Continue IV antibiotics for aspiration pneumonia 02/24: Patient was transferred to the ICU for further monitoring. This morning patient remained on high flow nasal cannula on 40 L/100% and despite repeated nasotracheal suctioning patient SPO2 remained in the 80s. Patient was placed on nonrebreather and SPO2 increased to upper 80s. Patient was subsequently intubated by anesthesia. Started on sedation. 02/25: Patient remains sedated on fentanyl, potassium and magnesium repleted. IV fluids and amlodipine discontinued. Possible bronchoscopy tomorrow. 02/26: Patient had a bronchoscopy today which showed mucus and no endobronchial lesions or masses. FiO2 was increased to 100 during and postprocedure weaning as tolerated. Repeat CXR is much improved after bronc. Given 1 L LR bolus due to hypotension. No acute events reported overnight. 02/27: Decreased PEEP, will repeat CT of chest. no acute changes overnight. 02/28: Patient was extubated today however had to be be intubated shortly after. Patient ETT looked mispositioned on x-ray and Dr. Alonzo did do a bedside bronc. Patient was briefly hypotensive and on Levophed postintubation however Levophed was quickly titrated off and patient did not require central line. No acute events reported overnight. Will obtain CT neck d/t difficulty intubating. Ethi committee consulted. 03/04: Overnight patient was hypotensive and started on IVF. Patient started on steroids as no air leak noted and hypotension and given 2 L LR 03/05: Overnight patient received bolus per RN report, no orders seen. Continue supportive care 03/03: SB on the monitor, HR as low as 37, VSS. Will continue to monitor for now. Awaiting on desicion from [facility] for possible trach and PEG. Continue daily air leak per [facility] 03/04: MAIDA overnight. Remains stable on the vent. Awaiting on desicion from [facility] for possible trach and PEG. Continue current supportive measures 03/05: MAIDA overnight. Awaiting on desicion from [facility] for possible trach and PEG. Midodrine held yesterday, HR improved. Continue current supportive measures. Daily PSV trial as tolerated per [facility] 03/06: Remains stable on the vent. Continue current supportive measures, daily PSV trial per [facility]. Awaiting on desicion for possible trach and PEG. 03/07: MAIDA overnight, remains stable. Continue daily PSV trial as tolerated. Awaiting on desicion for possible trach and PEG. 03/08: Patient failed PSV trial this am due to tachycardia and increase RR. Continue supportive measures and daily PSV trial as tolerated. Possible discussion with [facility] and [facility] on Thursday in regards to medical necessity, may need to consider two physician consent if no one is able to claim responsibility for this patient. 03/09: MAIDA overnight. Continue current supportive measures and daily PSV trail as tolerated. Awaiting on desicion for possible trach and PEG, discussion with Ethics possibly tomorrow per [facility]. 03/10: no acute events overnight, PSV today. replete potassium. 03/11: No acute events reported overnight, patient failed PSV yesterday and will repeat today. Hospital to start guardianship process. 03/12: No acute events overnight. PSV today 03/13: Patient given 500ml normal saline and started on midodrine for h ypotension. No acute events reported overnight. Failed pressure support again this morning. 03/14: No acute events reported overnight, patient blood pressure seems better therefore midodrine discontinued. RT placed on CPAP need lasted for couple hours. Will remove summers 03/15: Midodrine was restarted yesterday evening for hypotension, Summers catheter not removed due to sacral ulcer and history of retention. Unable to crush Flomax and patient will not tolerate doxazosin given hypotension. Given LR bolus this morning. If blood pressure continues to be borderline after bolus, we will adjust management as needed. CPAP as tolerated 03/16: No acute events reported overnight, patient placed on CPAP trial this morning which he failed. 03/17: RT attempted PSV which he failed again today. No acute events reported overnight. 03/18: Awaiting ethic committee's decision on Trach/PEG. Patient tolerated PSV trial for over 3 hrs today, continue daily PSV trial as tolerated. 03/19: MAIDA overnight. Continue current supportive measures. Daily PSV trial as tolerated. Awaiting on desicion for possible trach and PEG. Neuro: Acute encephalopathy, h/o seizure disorder, Down syndrome, partial blindness -Intubated and off sedation -Reorientation as needed -Maintain sleep-wake cycle -aspiration/seizure precautions -As needed analgesia -CT head showed no acute abnormality -Continue Keppra Cardiac: Hypotension, h/o HTN, HLD -Cardiology consulted, appreciate recommendations -Blood pressure monitoring per protocol -d/c amlodipine -On PO Midodrine for hypotension Respiratory: Acute hypoxic respiratory failure, r/o bronchogenic carcinoma -[facility] consulted, appreciate recommendations -Intubated on 02/24 with a 8.0 at 23 at the lips but extubated 02/28 -reintubated 02/28 with 8.0 OETT -Vent settings: AC rate 14, TV 360, PEEP 6, FO2 30% -See RT notes for titration -VAP bundle -SPO2 monitoring -02/18 CTA chest showed no evidence of pulmonary embolism, suspected bronchogenic carcinoma with associated obstruction of the right lower lobe proximal bronchus segment, 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 adenopathy and suspected to left lower lobe metastatic nodule -02/26 Bronch->mucous, no lesion noted -02/27 CT chest showed right mainstem bronchus patent with small amount of interval bronchial fluid which may be mucus (this may account for the appearance of the prior CTA chest fluid-filled airway rather than entering bronchial lesion), previously seen complete left lower lobe since related to bronchial occlusion has significantly improved, there is persistent compressive atelectasis in the right lower lung secondary to the pleural effusion, bilateral pleural effusions, right lung pneumonia -CT neck showed no acute changes - IV Steroids stopped GI: Moderate protein calorie malnutrition -PPI -NTR consulted for tube feedings -BR: Senokot S : Hypernatremia (resolved) -FWF 200 ml q4 hr -Monitor intake and output -Renally dose medications -Avoid nephrotoxic medications -Trend BMP ID: Aspiration PNA Sacral Decubitus Ulcer (POA) -S/p Rocephin for 5 days (02/19-02/24) -Monitor WBC and temperature curve -Wound care consulted Endo: NAD -Avoid hypoglycemia -Accu-Cheks every 6 -Avoid hypoglycemia Heme: NAD -Trend CBC -Transfuse hemoglobin less than 7 -SCDs to BLE while in bed The high probability of a clinically significant, sudden or life threatening deterioration of the [resp] system(s) required my full and direct attention, intervention and personal management. The aggregate critical care time was [60] minutes. This time is in addition to time spent performing reported procedures but includes the following: [x] Data Review and interpretation [x] Patient assessment and monitoring of vital signs [x] Documentation [x] Medication orders and management Disposition Plan: ICU Total Time Spent with Patient (Minutes): 60 History Interval history: Patient seen and examined at the bedside. Remains stable on low vent setting, not on any sedation. Open eyes spontaneously and move extremities but does not follow any commands. SR on the monitor this am, VSS. MAIDA overnight Hospitalist Physical - Physical exam Narrative exam: General appearance: Present: no acute distress, well-nourished, obese - EENT Eyes: Present: PERRL - Neck Neck: Present: normal ROM - Respiratory Respiratory effort: normal Respiratory: bilateral: rhonchi - Cardiovascular Rhythm: regular Heart Sounds: Present: S1 & S2 - Extremities Extremities: no ischemia, pulses intact, pulses symmetrical Extremity abnormal: edema - Peripheral Assessment Generalized Edema Type: Non-pitting Edema Degree: 1+ Capillary Refill: < 3 seconds Skin Temperature: Warm Peripheral Pulses: within normal limits - Abdominal General gastrointestinal: soft, non-distended, normal bowel sounds - Integumentary Integumentary: Present: warm, dry - Psychiatric Psychiatric: other (Intubated, unresponsive. Not on any sedations) - Neurologic Neurologic: moves all extremities, other (Intubated, unresponsive. Not on any sedations) - Allied Health Allied health notes reviewed: nursing, case management - Constitutional Vitals: Temp Pulse Resp BP Pulse Ox 98.3 F 54 L 14 86/41 100 03/19/22 08:00 03/19/22 11:23 03/19/22 11:00 03/19/22 11:23 03/19/22 11:23 HEART Score - HEART Score Troponin: Troponin T < 0.010 ng/mL (0.00-0.029) 02/18/22 21:02 Results - Labs CBC & Chem 7: 03/16/22 05:28 03/16/22 05:28 Labs: Laboratory Last Values WBC 6.4 K/mm3 (4.5-11.0) 03/16/22 05:28 RBC 2.81 M/mm3 (3.65-5.03) L 03/16/22 05:28 Hgb 9.1 gm/dl (11.8-15.2) L 03/16/22 05:28 Hct 27.8 % (35.5-45.6) L 03/16/22 05:28 MCV 99 fl (84-94) H 03/16/22 05:28 MCH 32 pg (28-32) 03/16/22 05:28 MCHC 33 % (32-34) 03/16/22 05:28 RDW 17.0 % (13.2-15.2) H 03/16/22 05:28 Plt Count 355 K/mm3 (140-440) 03/16/22 05:28 Lymph % (Auto) 13.3 % (13.4-35.0) L 03/10/22 03:57 Bucks % (Auto) 12.5 % (0.0-7.3) H 03/10/22 03:57 Eos % (Auto) 1.4 % (0.0-4.3) 03/10/22 03:57 Baso % (Auto) 0.4 % (0.0-1.8) 03/10/22 03:57 Lymph # (Auto) 1.3 K/mm3 (1.2-5.4) 03/10/22 03:57 Bucks # (Auto) 1.3 K/mm3 (0.0-0.8) H 03/10/22 03:57 Eos # (Auto) 0.1 K/mm3 (0.0-0.4) 03/10/22 03:57 Baso # (Auto) 0.0 K/mm3 (0.0-0.1) 03/10/22 03:57 Add Manual Diff Complete 03/03/22 03:54 Total Counted 100 03/03/22 03:54 Seg Neutrophils % 72.4 % (40.0-70.0) H 03/10/22 03:57 Seg Neuts % (Manual) 95.0 % (40.0-70.0) H 03/03/22 03:54 Band Neutrophils % 0 % 03/03/22 03:54 Lymphocytes % (Manual) 3.0 % (13.4-35.0) L 03/03/22 03:54 Reactive Lymphs % (Man) 0 % 03/03/22 03:54 Monocytes % (Manual) 2.0 % (0.0-7.3) 03/03/22 03:54 Eosinophils % (Manual) 0 % (0.0-4.3) 03/03/22 03:54 Basophils % (Manual) 0 % (0.0-1.8) 03/03/22 03:54 Metamyelocytes % 0 % 03/03/22 03:54 Myelocytes % 0 % 03/03/22 03:54 Promyelocytes % 0 % 03/03/22 03:54 Blast Cells % 0 % 03/03/22 03:54 Nucleated RBC % Not Reportable 03/03/22 03:54 Seg Neutrophils # 7.4 K/mm3 (1.8-7.7) 03/10/22 03:57 Seg Neutrophils # Man 18.5 K/mm3 (1.8-7.7) H 03/03/22 03:54 Band Neutrophils # 0.0 K/mm3 03/03/22 03:54 Lymphocytes # (Manual) 0.6 K/mm3 (1.2-5.4) L 03/03/22 03:54 Abs React Lymphs (Man) 0.0 K/mm3 03/03/22 03:54 Monocytes # (Manual) 0.4 K/mm3 (0.0-0.8) 03/03/22 03:54 Eosinophils # (Manual) 0.0 K/mm3 (0.0-0.4) 03/03/22 03:54 Basophils # (Manual) 0.0 K/mm3 (0.0-0.1) 03/03/22 03:54 Metamyelocytes # 0.0 K/mm3 03/03/22 03:54 Myelocytes # 0.0 K/mm3 03/03/22 03:54 Promyelocytes # 0.0 K/mm3 03/03/22 03:54 Blast Cells # 0.0 K/mm3 03/03/22 03:54 WBC Morphology Not Reportable 03/03/22 03:54 Hypersegmented Neuts Not Reportable 03/03/22 03:54 Hyposegmented Neuts Not Reportable 03/03/22 03:54 Hypogranular Neuts Not Reportable 03/03/22 03:54 Smudge Cells Not Reportable 03/03/22 03:54 Toxic Granulation Not Reportable 03/03/22 03:54 Toxic Vacuolation Not Reportable 03/03/22 03:54 Dohle Bodies Not Reportable 03/03/22 03:54 Pelger-Huet Anomaly Not Reportable 03/03/22 03:54 Lakshmi Rods Not Reportable 03/03/22 03:54 Platelet Estimate Consistent w auto 03/03/22 03:54 Clumped Platelets Not Reportable 03/03/22 03:54 Plt Clumps, EDTA Not Reportable 03/03/22 03:54 Large Platelets Not Reportable 03/03/22 03:54 Giant Platelets Not Reportable 03/03/22 03:54 Platelet Satelliting Not Reportable 03/03/22 03:54 Plt Morphology Comment Not Reportable 03/03/22 03:54 RBC Morphology Not Reportable 03/03/22 03:54 Dimorphic RBCs Not Reportable 03/03/22 03:54 Polychromasia Not Reportable 03/03/22 03:54 Hypochromasia Not Reportable 03/03/22 03:54 Poikilocytosis Not Reportable 03/03/22 03:54 Anisocytosis 1+ 03/03/22 03:54 Microcytosis Not Reportable 03/03/22 03:54 Macrocytosis Not Reportable 03/03/22 03:54 Spherocytes Not Reportable 03/03/22 03:54 Pappenheimer Bodies Not Reportable 03/03/22 03:54 Sickle Cells Not Reportable 03/03/22 03:54 Target Cells Not Reportable 03/03/22 03:54 Tear Drop Cells Not Reportable 03/03/22 03:54 Ovalocytes Not Reportable 03/03/22 03:54 Helmet Cells Not Reportable 03/03/22 03:[address] [place] Bodies Not Reportable 03/03/22 03:54 [place] Rings Not Reportable 03/03/22 03:54 [place] Cells Not Reportable 03/03/22 03:54 Bite Cells Not Reportable 03/03/22 03:54 Crenated Cell Not Reportable 03/03/22 03:54 Elliptocytes Not Reportable 03/03/22 03:54 Acanthocytes (Spur) Not Reportable 03/03/22 03:54 Rouleaux Not Reportable 03/03/22 03:54 Hemoglobin C Crystals Not Reportable 03/03/22 03:54 Schistocytes Not Reportable 03/03/22 03:54 Malaria parasites Not Reportable 03/03/22 03:54 Cash Bodies Not Reportable 03/03/22 03:54 Hem Pathologist Commnt No 03/03/22 03:54 PT 16.2 Sec. (12.2-14.9) H 03/11/22 04:02 INR 1.16 (0.87-1.13) H 03/11/22 04:02 ABG pH 7.476 pH Units (7.350-7.450) H 03/11/22 05:10 ABG pCO2 41.2 mm Hg 03/11/22 05:10 ABG pO2 84.0 mm Hg (80.0-90.0) 03/11/22 05:10 ABG HCO3 29.7 mmol/L (20.0-26.0) H 03/11/22 05:10 ABG O2 Saturation 97.1 % (95.0-99.0) 03/11/22 05:10 ABG O2 Content 12.3 (0.0-44) 03/11/22 05:10 ABG Base Excess 5.7 mmol/L (-2.0-3.0) H 03/11/22 05:10 ABG Hemoglobin 9.1 gm/dl (14.0-18.0) L 03/11/22 05:10 ABG Carboxyhemoglobin 1.7 % (0.0-5.0) 03/11/22 05:10 ABG Methemoglobin 0.5 % (0.0-1.5) 03/11/22 05:10 Oxyhemoglobin 95.0 % (95.0-99.0) 03/11/22 05:10 FiO2 30 % 03/11/22 05:10 Sodium 142 mmol/L (137-145) 03/16/22 05:28 Potassium 4.2 mmol/L (3.6-5.0) 03/16/22 05:28 Chloride 105.0 mmol/L (98-107) 03/16/22 05:28 Carbon Dioxide 29 mmol/L (22-30) 03/16/22 05:28 Anion Gap 12 mmol/L 03/16/22 05:28 BUN 17 mg/dL (9-20) 03/16/22 05:28 Creatinine 0.5 mg/dL (0.8-1.3) L 03/16/22 05:28 Estimated GFR > 60 ml/min 03/16/22 05:28 BUN/Creatinine Ratio 34 % 03/16/22 05:28 Glucose 88 mg/dL (75-100) 03/16/22 05:28 POC Glucose 96 mg/dL (70-105) 03/19/22 06:14 Lactic Acid 1.20 mmol/L (0.7-2.0) 02/18/22 21:02 Calcium 8.2 mg/dL (8.4-10.2) L 03/16/22 05:28 Phosphorus 4.10 mg/dL (2.5-4.5) 03/14/22 03:58 Magnesium 2.10 mg/dL (1.7-2.3) 03/14/22 03:58 Total Bilirubin 0.30 mg/dL (0.1-1.2) 03/10/22 03:57 AST 17 units/L (5-40) 03/10/22 03:57 ALT 18 units/L (7-56) 03/10/22 03:57 Alkaline Phosphatase 89 units/L (35-129) 03/10/22 03:57 Ammonia 14.0 umol/L (25-60) L 02/18/22 23:22 Troponin T < 0.010 ng/mL (0.00-0.029) 02/18/22 21:02 Total Protein 6.6 g/dL (6.3-8.2) 03/10/22 03:57 Albumin 1.9 g/dL (3.9-5) L 03/10/22 03:57 Albumin/Globulin Ratio 0.4 % 03/10/22 03:57 Urine Color Dark yellow (Yellow) 02/18/22 Unknown Urine Turbidity Clear (Clear) 02/18/22 Unknown Urine pH 7.0 (5.0-7.0) 02/18/22 Unknown Ur Specific [place] 1.015 (1.003-1.030) 02/18/22 Unknown Urine Protein <15 mg/dl mg/dL (Negative) 02/18/22 Unknown Urine Glucose (UA) Negative mg/dL (Negative) 02/18/22 Unknown Urine Ketones Negative mg/dL (Negative) 02/18/22 Unknown Urine Blood Trace (Negative) 02/18/22 Unknown Urine Nitrite Negative (Negative) 02/18/22 Unknown Urine Bilirubin Negative (Negative) 02/18/22 Unknown Urine Urobilinogen < 2.0 mg/dL (<2.0) 02/18/22 Unknown Ur Leukocyte Esterase Negative (Negative) 02/18/22 Unknown Urine WBC (Auto) 2.0 /HPF (0.0-6.0) 02/18/22 Unknown Urine RBC (Auto) 9.0 /HPF (0.0-6.0) 02/18/22 Unknown Urine Mucus Few /HPF 02/18/22 Unknown Urine Opiates Screen Negative 02/18/22 Unknown Urine Methadone Screen Negative 02/18/22 Unknown Ur Barbiturates Screen Negative 02/18/22 Unknown Ur Phencyclidine Scrn Negative 02/18/22 Unknown Ur Amphetamines Screen Negative 02/18/22 Unknown U Benzodiazepines Scrn Negative 02/18/22 Unknown Urine Cocaine Screen Negative 02/18/22 Unknown U Marijuana (THC) Screen Negative 02/18/22 Unknown Drugs of Abuse Note Disclamer 02/18/22 Unknown Plasma/Serum Alcohol < 0.01 % (0-0.07) 02/18/22 21:02 Summers/IV: Voiding Method Indwelling Catheter Active Medications - Current Medications Current Medications: Generic Name Dose Route Start Last Admin Trade Name Freq PRN Reason Stop Dose Admin Acetaminophen 650 mg 03/03/22 09:00 Acetaminophen 325 Mg/10.15 Ml Oral Liqd Unit Dose FEEDTUBE Q4H PRN Pain, Mild (1-3); TEMP > 100.4 Albuterol 2.5 mg 03/12/22 20:00 03/19/22 08:15 Albuterol 2.5 Mg/3 Ml Nebu IH 2.5 mg Q6HRT LAZARUS Administration Famotidine 20 mg 02/25/22 10:00 03/19/22 09:38 Famotidine 20 Mg Tab FEEDTUBE 20 mg BID LAZARUS Administration Heparin Sodium (Porcine) 5,000 unit 02/19/22 06:00 03/19/22 05:42 Heparin 5,000 Unit/1 Ml Vial SUB-Q 5,000 unit Q8HR LAZARUS Administration Hydrophilic Ointment 1 applic 02/24/22 15:05 Lip Therapy Vaseline TP Q2HR PRN Dry Lips Levetiracetam 500 mg 02/25/22 22:00 03/19/22 09:39 Levetiracetam 500 Mg/5 Ml Oral Liqd FEEDTUBE 500 mg BID LAZARUS Administration Levothyroxine Sodium 25 mcg 02/26/22 06:00 03/19/22 05:42 Levothyroxine 25 Mcg Tab FEEDTUBE 25 mcg QAM@0600 [facility] Administration Magnesium Hydroxide 30 ml 02/19/22 02:02 Magnesium Hydroxide (Mom) Oral Liqd Udc PO Q4H PRN Constipation Midodrine 2.5 mg 03/19/22 12:00 Midodrine 2.5 Mg Tab FEEDTUBE TID@0800,1200,1600 [facility] Multi-Ingred Cream/Lotion/Oil/Oint 1 applic 02/24/22 15:05 Mineral Oil/Petrolatum, White Ophth Oint 3.5 Gm OU Q4HR PRN Dry Eye(s) Ondansetron HCl 4 mg 02/19/22 02:02 Ondansetron 4 Mg/2 Ml Inj IV Q8H PRN Nausea And Vomiting Pravastatin Sodium 40 mg 02/25/22 22:00 03/18/22 21:42 Pravastatin 40 Mg Tab FEEDTUBE 40 mg QHS LAZARUS Administration Senna/Docusate Sodium 1 tab 02/24/22 22:00 03/19/22 09:38 Sennosides/Docusate Sodium 8.6/50 Mg Tab FEEDTUBE 1 tab BID LAZARUS Administration Sodium Chloride 10 ml 02/19/22 10:00 03/19/22 09:38 Sodium Chloride 0.9% 10 Ml Flush Syringe IV 10 ml BID LAZARUS Administration Sodium Chloride 10 ml 02/19/22 02:02 03/03/22 14:21 Sodium Chloride 0.9% 10 Ml Flush Syringe IV 10 ml PRN PRN Administration LINE FLUSH Nutrition/Malnutrition Assess - Dietary Evaluation Nutrition/Malnutrition Findings: Nutrition Notes Start: 02/19/22 14:29 Freq: Status: Active Protocol: Document 03/14/22 14:33 IVAN (Rec: 03/14/22 14:36 [facility] [id number]) Nutrition Notes Initial or Follow up Reassessment Current Diagnosis Hypertension,Respiratory Failure,Hyperlipidemia Other Pertinent Diagnosis Asp pneu, acute encephalopathy , seizure d/o, partial blindness Current Diet TF - Vital AF 1.2 at 50ml/hr Labs/Tests Reviewed Pertinent Medications Reviewed Height 5 ft 3 in Weight 63.2 kg Todd Body Weight (kg) 56.36 BMI 24.7 Weight Status Appropriate Subjective/Other Information Pt remains on vent support; no trach or PEG placed yet. Pt continues to tolerate TF. BM x 1 today. Percent of energy/protein needs met: 90% energy 100% pro Burn Absent Trauma Absent #1 Nutrition Diagnosis Inadequate oral intake Diagnosis Progress(for reassessment Continues documentation) Is patient on ventilator? Yes Is Patient Ambulatory and/or Out of Bed No REE-([facility]-confined to bed) [phone] Calculation Used for Recommendations [facility] Additional Notes Pro needs 1.2-2g/k-126g/ day Fluid needs 1ml/kcal Nutrition Intervention Nutrition Support: Continue Vital AF 1.2 at 50ml/ hr with 75ml water flush q4h. Kcal 1,440 Protein (gm) 90 Carbohydrates (gm) 133 Fat (gm) 65 Fluid (mL) 973 Fiber (gm) 6 Goal #1 TF tolerance Goal #2 TF to meet at least 75% energy and pro needs Follow-Up By: 03/21/22 Additional Comments F/U: stable TF, trach/PEG placement, vent status <JOAQUIN ROBIN - Last Filed: 03/20/22 07:29> Assessment and Plan Assessment and plan: I saw and evaluated the patient. I agree with the findings and the plan of care as documented in the Nurse Practitioner's~note, with the following corrections and additions. Hospitalist Physical - Constitutional Vitals: Temp Pulse Resp BP Pulse Ox 98.0 F 80 15 114/64 98 03/20/22 04:00 03/20/22 07:00 03/20/22 07:00 03/20/22 07:00 03/20/22 07:00 HEART Score - HEART Score Troponin: Troponin T < 0.010 ng/mL (0.00-0.029) 02/18/22 21:02 Results - Labs CBC & Chem 7: 03/20/22 04:09 03/20/22 04:09 Labs: Laboratory Last Values WBC 6.0 K/mm3 (4.5-11.0) 03/20/22 04:09 RBC 2.90 M/mm3 (3.65-5.03) L 03/20/22 04:09 Hgb 9.6 gm/dl (11.8-15.2) L 03/20/22 04:09 Hct 28.9 % (35.5-45.6) L 03/20/22 04:09 MCV 100 fl (84-94) H 03/20/22 04:09 MCH 33 pg (28-32) H 03/20/22 04:09 MCHC 33 % (32-34) 03/20/22 04:09 RDW 17.4 % (13.2-15.2) H 03/20/22 04:09 Plt Count 339 K/mm3 (140-440) 03/20/22 04:09 Lymph % (Auto) 13.3 % (13.4-35.0) L 03/10/22 03:57 Bucks % (Auto) 12.5 % (0.0-7.3) H 03/10/22 03:57 Eos % (Auto) 1.4 % (0.0-4.3) 03/10/22 03:57 Baso % (Auto) 0.4 % (0.0-1.8) 03/10/22 03:57 Lymph # (Auto) 1.3 K/mm3 (1.2-5.4) 03/10/22 03:57 Bucks # (Auto) 1.3 K/mm3 (0.0-0.8) H 03/10/22 03:57 Eos # (Auto) 0.1 K/mm3 (0.0-0.4) 03/10/22 03:57 Baso # (Auto) 0.0 K/mm3 (0.0-0.1) 03/10/22 03:57 Add Manual Diff Complete 03/03/22 03:54 Total Counted 100 03/03/22 03:54 Seg Neutrophils % 72.4 % (40.0-70.0) H 03/10/22 03:57 Seg Neuts % (Manual) 95.0 % (40.0-70.0) H 03/03/22 03:54 Band Neutrophils % 0 % 03/03/22 03:54 Lymphocytes % (Manual) 3.0 % (13.4-35.0) L 03/03/22 03:54 Reactive Lymphs % (Man) 0 % 03/03/22 03:54 Monocytes % (Manual) 2.0 % (0.0-7.3) 03/03/22 03:54 Eosinophils % (Manual) 0 % (0.0-4.3) 03/03/22 03:54 Basophils % (Manual) 0 % (0.0-1.8) 03/03/22 03:54 Metamyelocytes % 0 % 03/03/22 03:54 Myelocytes % 0 % 03/03/22 03:54 Promyelocytes % 0 % 03/03/22 03:54 Blast Cells % 0 % 03/03/22 03:54 Nucleated RBC % Not Reportable 03/03/22 03:54 Seg Neutrophils # 7.4 K/mm3 (1.8-7.7) 03/10/22 03:57 Seg Neutrophils # Man 18.5 K/mm3 (1.8-7.7) H 03/03/22 03:54 Band Neutrophils # 0.0 K/mm3 03/03/22 03:54 Lymphocytes # (Manual) 0.6 K/mm3 (1.2-5.4) L 03/03/22 03:54 Abs React Lymphs (Man) 0.0 K/mm3 03/03/22 03:54 Monocytes # (Manual) 0.4 K/mm3 (0.0-0.8) 03/03/22 03:54 Eosinophils # (Manual) 0.0 K/mm3 (0.0-0.4) 03/03/22 03:54 Basophils # (Manual) 0.0 K/mm3 (0.0-0.1) 03/03/22 03:54 Metamyelocytes # 0.0 K/mm3 03/03/22 03:54 Myelocytes # 0.0 K/mm3 03/03/22 03:54 Promyelocytes # 0.0 K/mm3 03/03/22 03:54 Blast Cells # 0.0 K/mm3 03/03/22 03:54 WBC Morphology Not Reportable 03/03/22 03:54 Hypersegmented Neuts Not Reportable 03/03/22 03:54 Hyposegmented Neuts Not Reportable 03/03/22 03:54 Hypogranular Neuts Not Reportable 03/03/22 03:54 Smudge Cells Not Reportable 03/03/22 03:54 Toxic Granulation Not Reportable 03/03/22 03:54 Toxic Vacuolation Not Reportable 03/03/22 03:54 Dohle Bodies Not Reportable 03/03/22 03:54 Pelger-Huet Anomaly Not Reportable 03/03/22 03:54 Lakshmi Rods Not Reportable 03/03/22 03:54 Platelet Estimate Consistent w auto 03/03/22 03:54 Clumped Platelets Not Reportable 03/03/22 03:54 Plt Clumps, EDTA Not Reportable 03/03/22 03:54 Large Platelets Not Reportable 03/03/22 03:54 Giant Platelets Not Reportable 03/03/22 03:54 Platelet Satelliting Not Reportable 03/03/22 03:54 Plt Morphology Comment Not Reportable 03/03/22 03:54 RBC Morphology Not Reportable 03/03/22 03:54 Dimorphic RBCs Not Reportable 03/03/22 03:54 Polychromasia Not Reportable 03/03/22 03:54 Hypochromasia Not Reportable 03/03/22 03:54 Poikilocytosis Not Reportable 03/03/22 03:54 Anisocytosis 1+ 03/03/22 03:54 Microcytosis Not Reportable 03/03/22 03:54 Macrocytosis Not Reportable 03/03/22 03:54 Spherocytes Not Reportable 03/03/22 03:54 Pappenheimer Bodies Not Reportable 03/03/22 03:54 Sickle Cells Not Reportable 03/03/22 03:54 Target Cells Not Reportable 03/03/22 03:54 Tear Drop Cells Not Reportable 03/03/22 03:54 Ovalocytes Not Reportable 03/03/22 03:54 Helmet Cells Not Reportable 03/03/22 03:[address] [place] Bodies Not Reportable 03/03/22 03:54 [place] Rings Not Reportable 03/03/22 03:54 [place] Cells Not Reportable 03/03/22 03:54 Bite Cells Not Reportable 03/03/22 03:54 Crenated Cell Not Reportable 03/03/22 03:54 Elliptocytes Not Reportable 03/03/22 03:54 Acanthocytes (Spur) Not Reportable 03/03/22 03:54 Rouleaux Not Reportable 03/03/22 03:54 Hemoglobin C Crystals Not Reportable 03/03/22 03:54 Schistocytes Not Reportable 03/03/22 03:54 Malaria parasites Not Reportable 03/03/22 03:54 Cash Bodies Not Reportable 03/03/22 03:54 Hem Pathologist Commnt No 03/03/22 03:54 PT 16.2 Sec. (12.2-14.9) H 03/11/22 04:02 INR 1.16 (0.87-1.13) H 03/11/22 04:02 ABG pH 7.476 pH Units (7.350-7.450) H 03/11/22 05:10 ABG pCO2 41.2 mm Hg 03/11/22 05:10 ABG pO2 84.0 mm Hg (80.0-90.0) 03/11/22 05:10 ABG HCO3 29.7 mmol/L (20.0-26.0) H 03/11/22 05:10 ABG O2 Saturation 97.1 % (95.0-99.0) 03/11/22 05:10 ABG O2 Content 12.3 (0.0-44) 03/11/22 05:10 ABG Base Excess 5.7 mmol/L (-2.0-3.0) H 03/11/22 05:10 ABG Hemoglobin 9.1 gm/dl (14.0-18.0) L 03/11/22 05:10 ABG Carboxyhemoglobin 1.7 % (0.0-5.0) 03/11/22 05:10 ABG Methemoglobin 0.5 % (0.0-1.5) 03/11/22 05:10 Oxyhemoglobin 95.0 % (95.0-99.0) 03/11/22 05:10 FiO2 30 % 03/11/22 05:10 Sodium 140 mmol/L (137-145) 03/20/22 04:09 Potassium 4.4 mmol/L (3.6-5.0) 03/20/22 04:09 Chloride 101.7 mmol/L (98-107) 03/20/22 04:09 Carbon Dioxide 30 mmol/L (22-30) 03/20/22 04:09 Anion Gap 13 mmol/L 03/20/22 04:09 BUN 18 mg/dL (9-20) 03/20/22 04:09 Creatinine 0.6 mg/dL (0.8-1.3) L 03/20/22 04:09 Estimated GFR > 60 ml/min 03/20/22 04:09 BUN/Creatinine Ratio 30 % 03/20/22 04:09 Glucose 94 mg/dL (75-100) 03/20/22 04:09 POC Glucose 98 mg/dL (70-105) 03/19/22 17:23 Lactic Acid 1.20 mmol/L (0.7-2.0) 02/18/22 21:02 Calcium 8.2 mg/dL (8.4-10.2) L 03/20/22 04:09 Phosphorus 3.50 mg/dL (2.5-4.5) 03/20/22 04:09 Magnesium 2.00 mg/dL (1.7-2.3) 03/20/22 04:09 Total Bilirubin 0.30 mg/dL (0.1-1.2) 03/10/22 03:57 AST 17 units/L (5-40) 03/10/22 03:57 ALT 18 units/L (7-56) 03/10/22 03:57 Alkaline Phosphatase 89 units/L (35-129) 03/10/22 03:57 Ammonia 14.0 umol/L (25-60) L 02/18/22 23:22 Troponin T < 0.010 ng/mL (0.00-0.029) 02/18/22 21:02 Total Protein 6.6 g/dL (6.3-8.2) 03/10/22 03:57 Albumin 1.9 g/dL (3.9-5) L 03/10/22 03:57 Albumin/Globulin Ratio 0.4 % 03/10/22 03:57 Urine Color Dark yellow (Yellow) 02/18/22 Unknown Urine Turbidity Clear (Clear) 02/18/22 Unknown Urine pH 7.0 (5.0-7.0) 02/18/22 Unknown Ur Specific [place] 1.015 (1.003-1.030) 02/18/22 Unknown Urine Protein <15 mg/dl mg/dL (Negative) 02/18/22 Unknown Urine Glucose (UA) Negative mg/dL (Negative) 02/18/22 Unknown Urine Ketones Negative mg/dL (Negative) 02/18/22 Unknown Urine Blood Trace (Negative) 02/18/22 Unknown Urine Nitrite Negative (Negative) 02/18/22 Unknown Urine Bilirubin Negative (Negative) 02/18/22 Unknown Urine Urobilinogen < 2.0 mg/dL (<2.0) 02/18/22 Unknown Ur Leukocyte Esterase Negative (Negative) 02/18/22 Unknown Urine WBC (Auto) 2.0 /HPF (0.0-6.0) 02/18/22 Unknown Urine RBC (Auto) 9.0 /HPF (0.0-6.0) 02/18/22 Unknown Urine Mucus Few /HPF 02/18/22 Unknown Urine Opiates Screen Negative 02/18/22 Unknown Urine Methadone Screen Negative 02/18/22 Unknown Ur Barbiturates Screen Negative 02/18/22 Unknown Ur Phencyclidine Scrn Negative 02/18/22 Unknown Ur Amphetamines Screen Negative 02/18/22 Unknown U Benzodiazepines Scrn Negative 02/18/22 Unknown Urine Cocaine Screen Negative 02/18/22 Unknown U Marijuana (THC) Screen Negative 02/18/22 Unknown Drugs of Abuse Note Disclamer 02/18/22 Unknown Plasma/Serum Alcohol < 0.01 % (0-0.07) 02/18/22 21:02 Summers/IV: Voiding Method Indwelling Catheter Active Medications - Current Medications Current Medications: Generic Name Dose Route Start Last Admin Trade Name Freq PRN Reason Stop Dose Admin Acetaminophen 650 mg 03/03/22 09:00 Acetaminophen 325 Mg/10.15 Ml Oral Liqd Unit Dose FEEDTUBE Q4H PRN Pain, Mild (1-3); TEMP > 100.4 Albuterol 2.5 mg 03/12/22 20:00 03/20/22 03:00 Albuterol 2.5 Mg/3 Ml Nebu IH 2.5 mg Q6HRT LAZARUS Administration Famotidine 20 mg 02/25/22 10:00 03/19/22 22:16 Famotidine 20 Mg Tab FEEDTUBE 20 mg BID LAZARUS Administration Heparin Sodium (Porcine) 5,000 unit 02/19/22 06:00 03/20/22 06:25 Heparin 5,000 Unit/1 Ml Vial SUB-Q 5,000 unit Q8HR LAZARUS Administration Hydrophilic Ointment 1 applic 02/24/22 15:05 Lip Therapy Vaseline TP Q2HR PRN Dry Lips Levetiracetam 500 mg 02/25/22 22:00 03/19/22 22:16 Levetiracetam 500 Mg/5 Ml Oral Liqd FEEDTUBE 500 mg BID LAZARUS Administration Levothyroxine Sodium 25 mcg 02/26/22 06:00 03/20/22 06:25 Levothyroxine 25 Mcg Tab FEEDTUBE 25 mcg QAM@0600 LAZARUS Administration Magnesium Hydroxide 30 ml 02/19/22 02:02 Magnesium Hydroxide (Mom) Oral Liqd Udc PO Q4H PRN Constipation Midodrine 2.5 mg 03/19/22 12:00 03/19/22 16:14 Midodrine 2.5 Mg Tab FEEDTUBE 2.5 mg TID@0800,1200,1600 LAZARUS Administration Multi-Ingred Cream/Lotion/Oil/Oint 1 applic 02/24/22 15:05 Mineral Oil/Petrolatum, White Ophth Oint 3.5 Gm OU Q4HR PRN Dry Eye(s) Ondansetron HCl 4 mg 02/19/22 02:02 Ondansetron 4 Mg/2 Ml Inj IV Q8H PRN Nausea And Vomiting Pravastatin Sodium 40 mg 02/25/22 22:00 03/19/22 22:16 Pravastatin 40 Mg Tab FEEDTUBE 40 mg QHS LAZARUS Administration Senna/Docusate Sodium 1 tab 02/24/22 22:00 03/19/22 22:16 Sennosides/Docusate Sodium 8.6/50 Mg Tab FEEDTUBE 1 tab BID LAZARUS Administration Sodium Chloride 10 ml 02/19/22 10:00 03/19/22 22:17 Sodium Chloride 0.9% 10 Ml Flush Syringe IV 10 ml BID LAZARUS Administration Sodium Chloride 10 ml 02/19/22 02:02 03/03/22 14:21 Sodium Chloride 0.9% 10 Ml Flush Syringe IV 10 ml PRN PRN Administration LINE FLUSH Nutrition/Malnutrition Assess - Dietary Evaluation Nutrition/Malnutrition Findings: Nutrition Notes Start: 02/19/22 14:29 Freq: Status: Active Protocol: Document 03/14/22 14:33 IVAN (Rec: 03/14/22 14:36 IVAN [email or web address]) Nutrition Notes Initial or Follow up Reassessment Current Diagnosis Hypertension,Respiratory Failure,Hyperlipidemia Other Pertinent Diagnosis Asp pneu, acute encephalopathy , seizure d/o, partial blindness Current Diet TF - Vital AF 1.2 at 50ml/hr Labs/Tests Reviewed Pertinent Medications Reviewed Height 5 ft 3 in Weight 63.2 kg Todd Body Weight (kg) 56.36 BMI 24.7 Weight Status Appropriate Subjective/Other Information Pt remains on vent support; no trach or PEG placed yet. Pt continues to tolerate TF. BM x 1 today. Percent of energy/protein needs met: 90% energy 100% pro Burn Absent Trauma Absent #1 Nutrition Diagnosis Inadequate oral intake Diagnosis Progress(for reassessment Continues documentation) Is patient on ventilator? Yes Is Patient Ambulatory and/or Out of Bed No REE-([place]. Jeor-confined to bed) [phone] Calculation [facility] Additional Notes Pro needs 1.2-2g/k-126g/ day Fluid needs 1ml/kcal Nutrition Intervention Nutrition Support: Continue Vital AF 1.2 at 50ml/ hr with 75ml water flush q4h. Kcal 1,440 Protein (gm) 90 Carbohydrates (gm) 133 Fat (gm) 65 Fluid (mL) 973 Fiber (gm) 6 Goal #1 TF tolerance Goal #2 TF to meet at least 75% energy and pro needs Follow-Up By: 03/21/22 Additional Comments F/U: stable TF, trach/PEG placement, vent status
[2022-03-19] MEDS: MIDODRINE 2.5 MG TAB FEEDTUBE SCH ×2 (11:49→16:14)
--- NOTE | 2022-03-19 17:05 | Progress Note ---
Assessment and Plan 61 y/o male with abnormal CT of chest. 03/19/22: Day 23 of intubation. Prognosis is still guarded. Will discuss with RT about attempts at daily PSV trials. Per notes, Wound care to see , wound was present on admission. 03/18/22: Day 22 of intubation. Prognosis remains guarded. Not able to obtain trach and peg with consent. Continue daily PSV trials as tolerated. 03/17/22: Day 21 of intubation. Still awaiting some form of decision maker for trach and peg placement. Guarded prognosis. 03/16/22: Day 20 of intubation. BP stable. Continue midodrine. Awaiting emergency guardianship from Court to obtain consent for trach and peg. Guarded prognosis. 03/15/22: Day 19 of intubation. BP now is marginal more regularly. Will give an additional liter bolus of LR now. May need to increase Midodrine back to 5. Needs trach in order to be safely weaned from ventilator. Will need peg tube placement in addition to trach. Prognosis remains guarded. Continue PSV trials as tolerated. 03/14/22: Day 18 of intubation. Vitals stable and mental status is unchanged. Still in need of tracheostomy as well as peg tube placement. No guardian appointed yet. 03/13/22: Day 17 of intubation. Agree with bolus and restarting of midodrine. was stopped previously secondary to bradycardia. If patient spikes temp, will c ulture blood and urine and repeat CXR. Continue daily PSV trials to assess ability for vent liberation. Continues to need trach however no family/guardian to provide consent. Guarded prognosis. 03/12/22: Day 16 of intubation. Following up with hospital in regards to guardian. Continue supportive measures. Guarded prognosis. 03/11/22: hospital now attempting to find emergency guardian to have consent for trach as ethics committee cannot comment on this matter so unable to help. Until then will remain intubated orally. Failed PSV yesterday, will continue to attempt on daily basis. Unfortunate situation. Guarded prognosis. 03/10/22: Today nuñez day 14 of intubation. Given patient's mental state and increased risk of aspiration, the likelihood of conventional extubation with success is very very slim and the patient has already failed this in an extremely short period of time (less than 1 hour). I suspect that he will fail again if tried and could create more difficult reintubation as he was a difficult reintubation on his failed extubation attempt. To prevent further dec line and potential complications of prolonged mechanical ventilation, will discuss with ethics and the hospital to use 2 physician consent to obtain trach and peg for this patient with hopes of liberating him from the mechanical ventilator. he has very minimal vent requirements but as been stated several times above, he continues to aspirate and failed conventional extubation almost immediately. Will consult surgery today. Dr. Mancia is prepared to sign consent as well as myself. Hopeful surgery will be on board with this. Continue supportive care for now. Attempt daily PSV trials. 03/07/22: Daily PSV trials as tolerated. Still no one to step up as adult friend. patient has now been intubated since 02/24/22 and is approaching the time period in which prolonged mechanical ventilation could lead to significant complications that could be detrimental to health (infection, stenosis, malacia etc). Will discuss again with ethics but in regards to medical necessity, may need to consider two physician consent if no one is able to claim responsibility for this patient. He is a full code and we must work in his best interest to prevent further harm. Continue supportive measures but he is not a candidate for conventional extubation given his mental state, despite being on minimal sup port. He has already failed this before. 03/06/22: PSV trials daily. Will discuss with RT. Spoke with ethics. Plan in place and awaiting on news from [facility] and [facility]. Continue supportive me asures. Patient has been intubated since 02/24/22 and is approaching the 2 week shadi of intubation will need to make decisions soon to avoid unnecessary complications related to prolonged intubation. 03/05/22: Will follow up with ethics today. Awaiting some guidance about consent for trach and peg. This is a medical necessity to liberate patient from mechanical ventilation. Continue supportive measures. Ok with daily PSV trials 03/04/22: Follow up with ethics later this afternoon. Spoke with RT and patient does have cuff leak, will stop steroids. Stopping midodrine as BP is stable and bradycardia likely from this. 03/03/22: Await ethics eval. CM has spoken with state as well. Daily cuff leaks. Will start to wean steroids tomorrow. Midodrine can cause bradycardia. If continues or worsens will stop. Guarded prognosis. 03/02/22: Continue supportive measures. Await ethics consult before surgery consult for trach and peg. no further need for fluid boluses. Will continue st ress dose steroids but have daily air leak checks by RT. Still will need trach, will not attempt extubation again. Guarded prognosis. 03/01/22: Patient is having increased urine output. This could be the cause of new onset hypotension. Will bolus 2 more liters of LR now and reassess. If this continues may need to work up for SIADH including repeat head CT. Follow up ethics review of case. Will need trach for ventilator liberation. Overall prognosis remains guarded. 02/28/22: Will obtain CT neck, noncontrast to look for airway edema or other possible etiologies for failure. Needs ethics consult as given patient's mental state, inability to clear secretions appropriately, will need trach now that he has failed extubation. However he has no family and no POA so no one to give consent. Continue supportive measures. Guarded prognosis. 02/27/22: Continue improvement of oxygenation. Will drop PEEP down today with goal of being at 6 by in the morning. Will repeat CT scan to confirm improvement as no endobronchial lesion was seen, but also to make sure no parenchymal mass. There was no evidence of extrinsic compression during bronch. Likely extubation tomorrow post CT. 02/26/22: Repeat CXR now. Wean Vent as tolerated. Hopeful extubation soon. Mucous removed. NO ENDOBRONCHIAL LESION/MASS 02/25/22: Bronch tentatively planned for tomorrow with therapeutic scope. Awaiting GI lab to give a time. NPO after midnight. Continue high PEEP 02/24/22: WIll attempt to bronch tomorrow morning. NPO after midnight. Just received word from GI lab they are not able to do bronch tomorrow. Cancel NPO order. Continue to feed patient. Repeat ABG in AM along with CXR. 02/21/22: No new pulm recs for today. Please obtain repeat CXR likely on Thursday. If patient happens to get worse, likely not a candidate for bipap given his weak cough and mental state and inability to communicate. If worsens and requires intubation, will bronch then under emergent circumstances if no POA or family is able to be located. Continue CPT. Will discuss with RT about NT suctioning. 02/20/22: Saw speech while on the floor. Would like patient to be NPO now. D iscussed with nurse on floor and with IMS. Same [address] as yesterday. Would benefit from bronch if able to get consent as this is not emergent. Continue CPT and q shift NT suctioning. Reviewed admission in the past and of note, patient was recently admitted last month and had a CXR done on the 29 of January that was normal. Given this patient's medical history and the history that I obtained from the nursing staff that at the [facility] he was eating solid foods, I suspect that this is aspiration, possibly of a foreign body (most likely food) with atelectasis of the right lower lobe. It is highly unlikely that a mass evolved in size in less than a months time and patient, besides age, has no real risk factors for lung carcinoma. Discussed with the nurse and unfortunately there is no identifiable person that is able to give consent. Bronchoscopy is needed in the case to eval uate to see if lung mass is there vs foreign body, but at this time not able to do. In the meanwhile will recommend the following. 1. Will order CPT with neb therapy 3x daily 2. Suggest maybe NT suctioning q shift. May use nasal trumpet, however do not leave this device in the patient 3. Aspiration precautions 4. Consider speech eval to assess swallowing. Will continue to follow. CCT 31 minutes. Subjective Date of service: 03/19/22 Principal diagnosis: f/u Acute respiratory failure Interval history: No acute events. No documented PSV trials today. Eyes open but not following commands. Objective Vital Signs - 12hr 03/19/22 03/19/22 03/19/22 06:00 07:00 07:43 Temperature Pulse Rate 64 67 57 L Pulse Rate [ Bilateral Throughout] Pulse Rate [ From Monitor] Respiratory 14 14 Rate Respiratory Rate [Bilateral Throughout] Blood Pressure 89/50 90/50 90/50 O2 Sat by Pulse 98 100 100 Oximetry 03/19/22 03/19/22 03/19/22 07:50 08:00 09:00 Temperature 98.3 F Pulse Rate 58 L 69 Pulse Rate [ 56 L Bilateral Throughout] Pulse Rate [ 63 From Monitor] Respiratory 14 13 Rate Respiratory 14 Rate [Bilateral Throughout] Blood Pressure 85/46 99/51 O2 Sat by Pulse 100 99 Oximetry 03/19/22 03/19/22 03/19/22 10:00 11:00 11:23 Temperature Pulse Rate 70 52 L 54 L Pulse Rate [ Bilateral Throughout] Pulse Rate [ From Monitor] Respiratory 14 14 Rate Respiratory Rate [Bilateral Throughout] Blood Pressure 110/57 86/41 86/41 O2 Sat by Pulse 99 99 100 Oximetry 03/19/22 03/19/22 03/19/22 11:49 12:00 13:00 Temperature 97.1 F L Pulse Rate 65 52 L Pulse Rate [ Bilateral Throughout] Pulse Rate [ 57 L From Monitor] Respiratory 15 14 Rate Respiratory Rate [Bilateral Throughout] Blood Pressure 105/61 92/46 O2 Sat by Pulse 100 100 Oximetry 03/19/22 03/19/22 03/19/22 14:00 15:00 15:33 Temperature Pulse Rate 54 L 49 L 75 Pulse Rate [ Bilateral Throughout] Pulse Rate [ From Monitor] Respiratory 14 14 Rate Respiratory Rate [Bilateral Throughout] Blood Pressure 90/49 92/48 92/48 O2 Sat by Pulse 100 100 100 Oximetry 03/19/22 03/19/22 15:37 16:00 Temperature 98.3 F Pulse Rate 95 H Pulse Rate [ 74 Bilateral Throughout] Pulse Rate [ From Monitor] Respiratory 13 Rate Respiratory 14 Rate [Bilateral Throughout] Blood Pressure 101/79 O2 Sat by Pulse 100 Oximetry Constitutional: alert, other (critically ill on ventilator) Eyes: non-icteric ENT: oropharynx moist Neck: supple Effort: normal Ascultation: Bilateral: diminished breath sounds, rhonchi Cardiovascular: regular rate and rhythm (no mrg) Gastrointestinal: normoactive bowel sounds, soft, non-tender (on o2 vest in place), non-distended Integumentary: normal Extremities: no cyanosis, no edema Neurologic: other (awake) Psychiatric: other (unable to assess) CBC and BMP: 03/16/22 05:28 03/16/22 05:28 ABG, PT/INR, D-dimer: ABG ABG pH 7.476 pH Units (7.350-7.450) H 03/11/22 05:10 ABG pCO2 41.2 mm Hg 03/11/22 05:10 ABG pO2 84.0 mm Hg (80.0-90.0) 03/11/22 05:10 ABG O2 Saturation 97.1 % (95.0-99.0) 03/11/22 05:10 PT/INR, D-dimer PT 16.2 Sec. (12.2-14.9) H 03/11/22 04:02 INR 1.16 (0.87-1.13) H 03/11/22 04:02 Abnormal lab findings: Abnormal Labs 02/18/22 02/18/22 02/18/22 19:34 21:02 21:02 WBC RBC Hgb Hct MCV 101 H MCH 34 H MCHC RDW 16.1 H Lymph % (Auto) [place] % (Auto) 12.4 H Lymph # (Auto) [place] # (Auto) 1.2 H Seg Neutrophils % 73.0 H Seg Neuts % (Manual) Lymphocytes % (Manual) Seg Neutrophils # Seg Neutrophils # Man Lymphocytes # (Manual) PT 16.9 H INR 1.20 H ABG pH ABG pO2 ABG HCO3 ABG O2 Saturation ABG Base Excess ABG Hemoglobin Oxyhemoglobin Sodium Potassium Chloride Carbon Dioxide BUN Creatinine Glucose POC Glucose 116 H Calcium Phosphorus AST ALT Ammonia Albumin 02/18/22 02/18/22 02/18/22 21:02 22:45 23:22 WBC RBC Hgb Hct MCV MCH MCHC RDW Lymph % (Auto) [place] % (Auto) Lymph # (Auto) [place] # (Auto) Seg Neutrophils % Seg Neuts % (Manual) Lymphocytes % (Manual) Seg Neutrophils # Seg Neutrophils # Man Lymphocytes # (Manual) PT INR ABG pH ABG pO2 55.6 L ABG HCO3 28.4 H ABG O2 Saturation 91.5 L ABG Base Excess 3.8 H ABG Hemoglobin 13.2 L Oxyhemoglobin 89.6 L Sodium Potassium 5.1 H Chloride Carbon Dioxide BUN Creatinine Glucose 102 H POC Glucose Calcium Phosphorus AST 48 H ALT 64 H Ammonia 14.0 L Albumin 2.7 L 02/20/22 02/20/22 02/23/22 04:59 04:59 06:29 WBC 11.4 H RBC Hgb Hct MCV 103 H MCH 33 H MCHC RDW 16.5 H Lymph % (Auto) 5.5 L [place] % (Auto) 12.1 H Lymph # (Auto) 0.6 L [place] # (Auto) 1.4 H Seg Neutrophils % 81.4 H Seg Neuts % (Manual) Lymphocytes % (Manual) Seg Neutrophils # 9.2 H Seg Neutrophils # Man Lymphocytes # (Manual) PT INR ABG pH ABG pO2 ABG HCO3 ABG O2 Saturation ABG Base Excess ABG Hemoglobin Oxyhemoglobin Sodium Potassium Chloride Carbon Dioxide BUN Creatinine Glucose POC Glucose 113 H Calcium 8.2 L Phosphorus AST ALT Ammonia Albumin 02/23/22 02/23/22 02/24/22 11:22 16:10 00:02 WBC RBC Hgb Hct MCV MCH MCHC RDW Lymph % (Auto) [place] % (Auto) Lymph # (Auto) [place] # (Auto) Seg Neutrophils % Seg Neuts % (Manual) Lymphocytes % (Manual) Seg Neutrophils # Seg Neutrophils # Man Lymphocytes # (Manual) PT INR ABG pH ABG pO2 ABG HCO3 ABG O2 Saturation ABG Base Excess ABG Hemoglobin Oxyhemoglobin Sodium Potassium Chloride Carbon Dioxide BUN Creatinine Glucose POC Glucose 108 H 115 H 109 H Calcium Phosphorus AST ALT Ammonia Albumin 02/24/22 02/24/22 02/24/22 11:05 11:05 13:20 WBC RBC 3.55 L Hgb Hct MCV 100 H MCH 34 H MCHC RDW 15.6 H Lymph % (Auto) [place] % (Auto) Lymph # (Auto) [place] # (Auto) Seg Neutrophils % Seg Neuts % (Manual) Lymphocytes % (Manual) Seg Neutrophils # Seg Neutrophils # Man Lymphocytes # (Manual) PT INR ABG pH ABG pO2 ABG HCO3 ABG O2 Saturation ABG Base Excess ABG Hemoglobin Oxyhemoglobin Sodium 146 H Potassium 3.2 L D Chloride 108.4 H Carbon Dioxide BUN Creatinine 0.5 L Glucose POC Glucose 111 H Calcium 7.9 L Phosphorus 2.20 L AST ALT Ammonia Albumin 02/24/22 02/24/22 02/24/22 16:30 17:03 20:25 WBC RBC Hgb Hct MCV MCH MCHC RDW Lymph % (Auto) [place] % (Auto) Lymph # (Auto) [place] # (Auto) Seg Neutrophils % Seg Neuts % (Manual) Lymphocytes % (Manual) Seg Neutrophils # Seg Neutrophils # Man Lymphocytes # (Manual) PT INR ABG pH 7.319 L ABG pO2 65.3 L ABG HCO3 31.3 H ABG O2 Saturation 92.2 L ABG Base Excess 3.8 H ABG Hemoglobin 12.0 L Oxyhemoglobin 90.3 L Sodium Potassium Chloride 107.9 H Carbon Dioxide BUN 8 L Creatinine 0.4 L Glucose POC Glucose 108 H Calcium 7.6 L Phosphorus 4.60 H D AST ALT Ammonia Albumin 02/25/22 02/25/22 02/25/22 04:12 04:12 05:05 WBC RBC 3.07 L Hgb 10.2 L Hct 31.5 L MCV 103 H MCH 33 H MCHC RDW 15.6 H Lymph % (Auto) [place] % (Auto) Lymph # (Auto) [place] # (Auto) Seg Neutrophils % Seg Neuts % (Manual) Lymphocytes % (Manual) Seg Neutrophils # Seg Neutrophils # Man Lymphocytes # (Manual) PT INR ABG pH ABG pO2 ABG HCO3 32.5 H ABG O2 Saturation ABG Base Excess 5.6 H ABG Hemoglobin 10.8 L Oxyhemoglobin 94.8 L Sodium Potassium 3.5 L Chloride 107.7 H Carbon Dioxide BUN Creatinine 0.5 L Glucose POC Glucose Calcium 7.0 L Phosphorus AST ALT Ammonia Albumin 02/25/22 02/25/22 02/26/22 12:05 18:33 00:07 WBC RBC Hgb Hct MCV MCH MCHC RDW Lymph % (Auto) [place] % (Auto) Lymph # (Auto) [place] # (Auto) Seg Neutrophils % Seg Neuts % (Manual) Lymphocytes % (Manual) Seg Neutrophils # Seg Neutrophils # Man Lymphocytes # (Manual) PT INR ABG pH ABG pO2 ABG HCO3 ABG O2 Saturation ABG Base Excess ABG Hemoglobin Oxyhemoglobin Sodium Potassium Chloride Carbon Dioxide BUN Creatinine Glucose POC Glucose 127 H 125 H 114 H Calcium Phosphorus AST ALT Ammonia Albumin 02/26/22 02/26/22 02/26/22 03:30 04:42 11:34 WBC RBC Hgb Hct MCV MCH MCHC RDW Lymph % (Auto) [place] % (Auto) Lymph # (Auto) [place] # (Auto) Seg Neutrophils % Seg Neuts % (Manual) Lymphocytes % (Manual) Seg Neutrophils # Seg Neutrophils # Man Lymphocytes # (Manual) PT INR ABG pH ABG pO2 143.2 H ABG HCO3 33.2 H ABG O2 Saturation ABG Base Excess 6.5 H ABG Hemoglobin 9.4 L Oxyhemoglobin Sodium Potassium Chloride Carbon Dioxide 32 H BUN Creatinine 0.7 L Glucose POC Glucose 114 H Calcium 8.0 L Phosphorus AST ALT Ammonia Albumin 02/26/22 02/26/22 02/27/22 18:17 23:37 04:19 WBC 13.7 H RBC 2.78 L Hgb 9.3 L Hct 28.5 L MCV 103 H MCH 33 H MCHC RDW 16.3 H Lymph % (Auto) [place] % (Auto) Lymph # (Auto) [place] # (Auto) Seg Neutrophils % Seg Neuts % (Manual) Lymphocytes % (Manual) Seg Neutrophils # Seg Neutrophils # Man Lymphocytes # (Manual) PT INR ABG pH ABG pO2 ABG HCO3 ABG O2 Saturation ABG Base Excess ABG Hemoglobin Oxyhemoglobin Sodium Potassium Chloride Carbon Dioxide BUN Creatinine Glucose POC Glucose 111 H 117 H Calcium Phosphorus AST ALT Ammonia Albumin 02/27/22 02/27/22 02/27/22 04:19 04:35 05:27 WBC RBC Hgb Hct MCV MCH MCHC RDW Lymph % (Auto) [place] % (Auto) Lymph # (Auto) [place] # (Auto) Seg Neutrophils % Seg Neuts % (Manual) Lymphocytes % (Manual) Seg Neutrophils # Seg Neutrophils # Man Lymphocytes # (Manual) PT INR ABG pH ABG pO2 96.3 H ABG HCO3 34.9 H ABG O2 Saturation ABG Base Excess 8.1 H ABG Hemoglobin Oxyhemoglobin Sodium Potassium Chloride Carbon Dioxide 31 H BUN Creatinine 0.6 L Glucose 107 H POC Glucose 133 H Calcium 7.8 L Phosphorus AST ALT Ammonia Albumin 02/27/22 02/27/22 02/28/22 11:15 23:35 03:38 WBC 13.3 H RBC 3.05 L Hgb 10.2 L Hct 30.7 L MCV 101 H MCH 33 H MCHC RDW 16.1 H Lymph % (Auto) [place] % (Auto) Lymph # (Auto) [place] # (Auto) Seg Neutrophils % Seg Neuts % (Manual) Lymphocytes % (Manual) Seg Neutrophils # Seg Neutrophils # Man Lymphocytes # (Manual) PT INR ABG pH ABG pO2 ABG HCO3 ABG O2 Saturation ABG Base Excess ABG Hemoglobin Oxyhemoglobin Sodium Potassium Chloride Carbon Dioxide BUN Creatinine Glucose POC Glucose 129 H 122 H Calcium Phosphorus AST ALT Ammonia Albumin 02/28/22 02/28/22 02/28/22 04:50 05:30 09:30 WBC RBC Hgb Hct MCV MCH MCHC RDW Lymph % (Auto) [place] % (Auto) Lymph # (Auto) [place] # (Auto) Seg Neutrophils % Seg Neuts % (Manual) Lymphocytes % (Manual) Seg Neutrophils # Seg Neutrophils # Man Lymphocytes # (Manual) PT INR ABG pH 7.451 H 7.488 H ABG pO2 77.0 L ABG HCO3 37.1 H 34.6 H ABG O2 Saturation ABG Base Excess 11.5 H 10.1 H ABG Hemoglobin 10.1 L 10.0 L Oxyhemoglobin Sodium Potassium Chloride Carbon Dioxide BUN Creatinine Glucose POC Glucose 121 H Calcium Phosphorus AST ALT Ammonia Albumin 02/28/22 02/28/22 03/01/22 11:36 23:07 04:27 WBC 12.5 H RBC 2.85 L Hgb 9.5 L Hct 28.6 L MCV 101 H MCH 33 H MCHC RDW 15.7 H Lymph % (Auto) [place] % (Auto) Lymph # (Auto) [place] # (Auto) Seg Neutrophils % Seg Neuts % (Manual) Lymphocytes % (Manual) Seg Neutrophils # Seg Neutrophils # Man Lymphocytes # (Manual) PT INR ABG pH ABG pO2 ABG HCO3 ABG O2 Saturation ABG Base Excess ABG Hemoglobin Oxyhemoglobin Sodium Potassium Chloride Carbon Dioxide BUN Creatinine Glucose POC Glucose 112 H 107 H Calcium Phosphorus AST ALT Ammonia Albumin 03/01/22 03/01/22 03/01/22 04:27 05:05 11:29 WBC RBC Hgb Hct MCV MCH MCHC RDW Lymph % (Auto) [place] % (Auto) Lymph # (Auto) [place] # (Auto) Seg Neutrophils % Seg Neuts % (Manual) Lymphocytes % (Manual) Seg Neutrophils # Seg Neutrophils # Man Lymphocytes # (Manual) PT INR ABG pH ABG pO2 ABG HCO3 ABG O2 Saturation ABG Base Excess ABG Hemoglobin Oxyhemoglobin Sodium 147 H D Potassium Chloride Carbon Dioxide 34 H BUN Creatinine 0.6 L Glucose 128 H POC Glucose 119 H 121 H Calcium 7.9 L Phosphorus AST ALT Ammonia Albumin 03/01/22 03/01/22 03/02/22 16:15 23:57 05:18 WBC RBC Hgb Hct MCV MCH MCHC RDW Lymph % (Auto) [place] % (Auto) Lymph # (Auto) [place] # (Auto) Seg Neutrophils % Seg Neuts % (Manual) Lymphocytes % (Manual) Seg Neutrophils # Seg Neutrophils # Man Lymphocytes # (Manual) PT INR ABG pH ABG pO2 110.5 H ABG HCO3 33.0 H ABG O2 Saturation ABG Base Excess 7.4 H ABG Hemoglobin 8.6 L Oxyhemoglobin Sodium Potassium Chloride Carbon Dioxide BUN Creatinine Glucose POC Glucose 134 H 140 H Calcium Phosphorus AST ALT Ammonia Albumin 03/02/22 03/02/22 03/02/22 05:53 09:04 09:04 WBC 15.0 H RBC 3.00 L Hgb 9.7 L Hct 30.7 L MCV 102 H MCH MCHC RDW 16.6 H Lymph % (Auto) [place] % (Auto) Lymph # (Auto) [place] # (Auto) Seg Neutrophils % Seg Neuts % (Manual) Lymphocytes % (Manual) Seg Neutrophils # Seg Neutrophils # Man Lymphocytes # (Manual) PT INR ABG pH ABG pO2 ABG HCO3 ABG O2 Saturation ABG Base Excess ABG Hemoglobin Oxyhemoglobin Sodium Potassium Chloride Carbon Dioxide 31 H BUN Creatinine 0.6 L Glucose 157 H POC Glucose 158 H Calcium 7.9 L Phosphorus AST ALT Ammonia Albumin 03/02/22 03/02/22 03/02/22 11:36 16:25 23:17 WBC RBC Hgb Hct MCV MCH MCHC RDW Lymph % (Auto) [place] % (Auto) Lymph # (Auto) [place] # (Auto) Seg Neutrophils % Seg Neuts % (Manual) Lymphocytes % (Manual) Seg Neutrophils # Seg Neutrophils # Man Lymphocytes # (Manual) PT INR ABG pH ABG pO2 ABG HCO3 ABG O2 Saturation ABG Base Excess ABG Hemoglobin Oxyhemoglobin Sodium Potassium Chloride Carbon Dioxide BUN Creatinine Glucose POC Glucose 160 H 132 H 157 H Calcium Phosphorus AST ALT Ammonia Albumin 03/03/22 03/03/22 03/03/22 03:54 03:54 05:27 WBC 19.5 H RBC 2.79 L Hgb 9.0 L Hct 28.6 L MCV 102 H MCH MCHC RDW 16.2 H Lymph % (Auto) [place] % (Auto) Lymph # (Auto) [place] # (Auto) Seg Neutrophils % Seg Neuts % (Manual) 95.0 H Lymphocytes % (Manual) 3.0 L Seg Neutrophils # Seg Neutrophils # Man 18.5 H Lymphocytes # (Manual) 0.6 L PT INR ABG pH ABG pO2 ABG HCO3 ABG O2 Saturation ABG Base Excess ABG Hemoglobin Oxyhemoglobin Sodium Potassium Chloride Carbon Dioxide BUN Creatinine 0.6 L Glucose 130 H POC Glucose 149 H Calcium 8.1 L Phosphorus AST ALT Ammonia Albumin 03/03/22 03/03/22 03/04/22 11:13 17:30 00:02 WBC RBC Hgb Hct MCV MCH MCHC RDW Lymph % (Auto) [place] % (Auto) Lymph # (Auto) [place] # (Auto) Seg Neutrophils % Seg Neuts % (Manual) Lymphocytes % (Manual) Seg Neutrophils # Seg Neutrophils # Man Lymphocytes # (Manual) PT INR ABG pH ABG pO2 ABG HCO3 ABG O2 Saturation ABG Base Excess ABG Hemoglobin Oxyhemoglobin Sodium Potassium Chloride Carbon Dioxide BUN Creatinine Glucose POC Glucose 139 H 138 H 157 H Calcium Phosphorus AST ALT Ammonia Albumin 03/04/22 03/04/22 03/04/22 05:32 05:32 05:48 WBC 16.1 H RBC 2.81 L Hgb 9.3 L Hct 28.8 L MCV 102 H MCH 33 H MCHC RDW 16.7 H Lymph % (Auto) [place] % (Auto) Lymph # (Auto) [place] # (Auto) Seg Neutrophils % Seg Neuts % (Manual) Lymphocytes % (Manual) Seg Neutrophils # Seg Neutrophils # Man Lymphocytes # (Manual) PT INR ABG pH ABG pO2 ABG HCO3 ABG O2 Saturation ABG Base Excess ABG Hemoglobin Oxyhemoglobin Sodium Potassium Chloride Carbon Dioxide BUN Creatinine 0.7 L Glucose 135 H POC Glucose 145 H Calcium 8.3 L Phosphorus AST ALT Ammonia Albumin 03/04/22 03/04/22 03/05/22 11:34 16:29 00:28 WBC RBC Hgb Hct MCV MCH MCHC RDW Lymph % (Auto) [place] % (Auto) Lymph # (Auto) [place] # (Auto) Seg Neutrophils % Seg Neuts % (Manual) Lymphocytes % (Manual) Seg Neutrophils # Seg Neutrophils # Man Lymphocytes # (Manual) PT INR ABG pH ABG pO2 ABG HCO3 ABG O2 Saturation ABG Base Excess ABG Hemoglobin Oxyhemoglobin Sodium Potassium Chloride Carbon Dioxide BUN Creatinine Glucose POC Glucose 148 H 140 H 116 H Calcium Phosphorus AST ALT Ammonia Albumin 03/05/22 03/05/22 03/05/22 06:29 11:30 17:38 WBC RBC Hgb Hct MCV MCH MCHC RDW Lymph % (Auto) [place] % (Auto) Lymph # (Auto) [place] # (Auto) Seg Neutrophils % Seg Neuts % (Manual) Lymphocytes % (Manual) Seg Neutrophils # Seg Neutrophils # Man Lymphocytes # (Manual) PT INR ABG pH ABG pO2 ABG HCO3 ABG O2 Saturation ABG Base Excess ABG Hemoglobin Oxyhemoglobin Sodium Potassium Chloride Carbon Dioxide BUN Creatinine Glucose POC Glucose 114 H 114 H 117 H Calcium Phosphorus AST ALT Ammonia Albumin 03/06/22 03/06/22 03/06/22 04:17 04:17 06:06 WBC 13.4 H RBC 2.85 L Hgb 9.4 L Hct 29.0 L MCV 102 H MCH 33 H MCHC RDW 16.4 H Lymph % (Auto) [place] % (Auto) Lymph # (Auto) [place] # (Auto) Seg Neutrophils % Seg Neuts % (Manual) Lymphocytes % (Manual) Seg Neutrophils # Seg Neutrophils # Man Lymphocytes # (Manual) PT INR ABG pH ABG pO2 ABG HCO3 ABG O2 Saturation ABG Base Excess ABG Hemoglobin Oxyhemoglobin Sodium Potassium 3.5 L Chloride Carbon Dioxide 31 H BUN Creatinine 0.6 L Glucose 101 H POC Glucose 106 H Calcium 7.7 L Phosphorus 2.00 L AST ALT Ammonia Albumin 03/06/22 03/06/22 03/07/22 18:04 23:50 05:14 WBC RBC Hgb Hct MCV MCH MCHC RDW Lymph % (Auto) [place] % (Auto) Lymph # (Auto) [place] # (Auto) Seg Neutrophils % Seg Neuts % (Manual) Lymphocytes % (Manual) Seg Neutrophils # Seg Neutrophils # Man Lymphocytes # (Manual) PT INR ABG pH ABG pO2 ABG HCO3 ABG O2 Saturation ABG Base Excess ABG Hemoglobin Oxyhemoglobin Sodium Potassium Chloride Carbon Dioxide BUN Creatinine Glucose POC Glucose 108 H 115 H 116 H Calcium Phosphorus AST ALT Ammonia Albumin 03/07/22 03/07/22 03/08/22 11:42 18:13 04:34 WBC RBC 2.86 L Hgb 9.2 L Hct 29.3 L MCV 103 H MCH MCHC 31 L RDW 16.9 H Lymph % (Auto) [place] % (Auto) Lymph # (Auto) [place] # (Auto) Seg Neutrophils % Seg Neuts % (Manual) Lymphocytes % (Manual) Seg Neutrophils # Seg Neutrophils # Man Lymphocytes # (Manual) PT INR ABG pH ABG pO2 ABG HCO3 ABG O2 Saturation ABG Base Excess ABG Hemoglobin Oxyhemoglobin Sodium Potassium Chloride Carbon Dioxide BUN Creatinine Glucose POC Glucose 123 H 109 H Calcium Phosphorus AST ALT Ammonia Albumin 03/08/22 03/08/22 03/08/22 04:34 11:29 16:34 WBC RBC Hgb Hct MCV MCH MCHC RDW Lymph % (Auto) [place] % (Auto) Lymph # (Auto) [place] # (Auto) Seg Neutrophils % Seg Neuts % (Manual) Lymphocytes % (Manual) Seg Neutrophils # Seg Neutrophils # Man Lymphocytes # (Manual) PT INR ABG pH ABG pO2 ABG HCO3 ABG O2 Saturation ABG Base Excess ABG Hemoglobin Oxyhemoglobin Sodium Potassium Chloride Carbon Dioxide 33 H BUN Creatinine 0.5 L Glucose 109 H POC Glucose 117 H 109 H Calcium 7.6 L Phosphorus AST ALT Ammonia Albumin 03/08/22 03/09/22 03/10/22 23:56 11:15 03:57 WBC RBC 2.99 L Hgb 9.9 L Hct 30.3 L MCV 102 H MCH 33 H MCHC RDW 16.8 H Lymph % (Auto) 13.3 L [place] % (Auto) 12.5 H Lymph # (Auto) [place] # (Auto) 1.3 H Seg Neutrophils % 72.4 H Seg Neuts % (Manual) Lymphocytes % (Manual) Seg Neutrophils # Seg Neutrophils # Man Lymphocytes # (Manual) PT INR ABG pH ABG pO2 ABG HCO3 ABG O2 Saturation ABG Base Excess ABG Hemoglobin Oxyhemoglobin Sodium Potassium Chloride Carbon Dioxide BUN Creatinine Glucose POC Glucose 106 H 110 H Calcium Phosphorus AST ALT Ammonia Albumin 03/10/22 03/10/22 03/10/22 03:57 04:50 16:04 WBC RBC Hgb Hct MCV MCH MCHC RDW Lymph % (Auto) [place] % (Auto) Lymph # (Auto) [place] # (Auto) Seg Neutrophils % Seg Neuts % (Manual) Lymphocytes % (Manual) Seg Neutrophils # Seg Neutrophils # Man Lymphocytes # (Manual) PT INR ABG pH 7.465 H ABG pO2 ABG HCO3 31.9 H ABG O2 Saturation ABG Base Excess 7.3 H ABG Hemoglobin 11.0 L Oxyhemoglobin Sodium Potassium 3.4 L Chloride Carbon Dioxide BUN Creatinine 0.6 L Glucose POC Glucose 115 H Calcium 8.1 L Phosphorus AST ALT Ammonia Albumin 1.9 L 03/11/22 03/11/22 03/11/22 04:02 04:02 04:02 WBC 12.0 H RBC 2.81 L Hgb 9.2 L Hct 29.1 L MCV 103 H MCH 33 H MCHC RDW 17.5 H Lymph % (Auto) [place] % (Auto) Lymph # (Auto) [place] # (Auto) Seg Neutrophils % Seg Neuts % (Manual) Lymphocytes % (Manual) Seg Neutrophils # Seg Neutrophils # Man Lymphocytes # (Manual) PT 16.2 H INR 1.16 H ABG pH ABG pO2 ABG HCO3 ABG O2 Saturation ABG Base Excess ABG Hemoglobin Oxyhemoglobin Sodium Potassium Chloride Carbon Dioxide BUN Creatinine 0.5 L Glucose 104 H POC Glucose Calcium 7.9 L Phosphorus AST ALT Ammonia Albumin 03/11/22 03/11/22 03/11/22 05:10 11:07 16:32 WBC RBC Hgb Hct MCV MCH MCHC RDW Lymph % (Auto) [place] % (Auto) Lymph # (Auto) [place] # (Auto) Seg Neutrophils % Seg Neuts % (Manual) Lymphocytes % (Manual) Seg Neutrophils # Seg Neutrophils # Man Lymphocytes # (Manual) PT INR ABG pH 7.476 H ABG pO2 ABG HCO3 29.7 H ABG O2 Saturation ABG Base Excess 5.7 H ABG Hemoglobin 9.1 L Oxyhemoglobin Sodium Potassium Chloride Carbon Dioxide BUN Creatinine Glucose POC Glucose 108 H 121 H Calcium Phosphorus AST ALT Ammonia Albumin 03/12/22 03/13/22 03/13/22 05:51 06:08 12:02 WBC RBC 2.73 L Hgb 9.0 L Hct 27.5 L MCV 101 H MCH 33 H MCHC RDW 17.2 H Lymph % (Auto) [place] % (Auto) Lymph # (Auto) [place] # (Auto) Seg Neutrophils % Seg Neuts % (Manual) Lymphocytes % (Manual) Seg Neutrophils # Seg Neutrophils # Man Lymphocytes # (Manual) PT INR ABG pH ABG pO2 ABG HCO3 ABG O2 Saturation ABG Base Excess ABG Hemoglobin Oxyhemoglobin Sodium Potassium Chloride Carbon Dioxide BUN Creatinine Glucose POC Glucose 116 H 111 H Calcium Phosphorus AST ALT Ammonia Albumin 03/13/22 03/13/22 03/14/22 12:48 18:17 03:58 WBC RBC 2.97 L Hgb 9.7 L Hct 30.0 L MCV 101 H MCH 33 H MCHC RDW 16.7 H Lymph % (Auto) [place] % (Auto) Lymph # (Auto) [place] # (Auto) Seg Neutrophils % Seg Neuts % (Manual) Lymphocytes % (Manual) Seg Neutrophils # Seg Neutrophils # Man Lymphocytes # (Manual) PT INR ABG pH ABG pO2 ABG HCO3 ABG O2 Saturation ABG Base Excess ABG Hemoglobin Oxyhemoglobin Sodium Potassium Chloride Carbon Dioxide BUN Creatinine Glucose POC Glucose 125 H 114 H Calcium Phosphorus AST ALT Ammonia Albumin 03/14/22 03/14/22 03/14/22 03:58 13:01 16:41 WBC RBC Hgb Hct MCV MCH MCHC RDW Lymph % (Auto) [place] % (Auto) Lymph # (Auto) [place] # (Auto) Seg Neutrophils % Seg Neuts % (Manual) Lymphocytes % (Manual) Seg Neutrophils # Seg Neutrophils # Man Lymphocytes # (Manual) PT INR ABG pH ABG pO2 ABG HCO3 ABG O2 Saturation ABG Base Excess ABG Hemoglobin Oxyhemoglobin Sodium Potassium Chloride Carbon Dioxide BUN Creatinine 0.6 L Glucose POC Glucose 118 H 109 H Calcium 8.2 L Phosphorus AST ALT Ammonia Albumin 03/16/22 03/16/22 03/17/22 05:28 05:28 23:19 WBC RBC 2.81 L Hgb 9.1 L Hct 27.8 L MCV 99 H MCH MCHC RDW 17.0 H Lymph % (Auto) [place] % (Auto) Lymph # (Auto) [place] # (Auto) Seg Neutrophils % Seg Neuts % (Manual) Lymphocytes % (Manual) Seg Neutrophils # Seg Neutrophils # Man Lymphocytes # (Manual) PT INR ABG pH ABG pO2 ABG HCO3 ABG O2 Saturation ABG Base Excess ABG Hemoglobin Oxyhemoglobin Sodium Potassium Chloride Carbon Dioxide BUN Creatinine 0.5 L Glucose POC Glucose 113 H Calcium 8.2 L Phosphorus AST ALT Ammonia Albumin
[2022-03-19] MEDS: PRAVASTATIN 40 MG TAB FEEDTUBE SCH (22:16)
[2022-03-20] MEDS: ALBUTEROL 2.5 MG/3 ML NEBU IH SCH ×4 (03:00→19:08)
[2022-03-20 05:19] LABS: Hematocrit 28.9 % (35.5-45.6); Hemoglobin 9.6 gm/dl (11.8-15.2); Mean Corpuscular HGB Conc 33 % (32-34); Mean Corpuscular Volume 100 fl (84-94); Platelet Count 339 K/mm3 (140-440); Red Cell Distribution Width 17.4 % (13.2-15.2)
[2022-03-20 05:34] LABS: Blood Urea Nitrogen 18 mg/dL (9-20); Calcium 8.2 mg/dL (8.4-10.2); Hemolysis Index 6
[2022-03-20 05:36] LABS: BUN/Creatinine Ratio 30
[2022-03-20] MEDS: HEPARIN 5,000 UNIT/1 ML VIAL SUB-Q SCH ×3 (06:25→21:06)
[2022-03-20] MEDS: LEVOTHYROXINE 25 MCG TAB FEEDTUBE SCH (06:25)
[2022-03-20] MEDS: MIDODRINE 2.5 MG TAB FEEDTUBE SCH ×3 (08:53→16:05)
[2022-03-20] MEDS: SENNOSIDES/DOCUSATE SODIUM 8.6/50 MG TAB FEEDTUBE SCH ×2 (09:00→21:06)
[2022-03-20] MEDS: FAMOTIDINE 20 MG TAB FEEDTUBE SCH ×2 (09:00→21:06)
[2022-03-20] MEDS: levETIRAcetam 500 MG/5 ML ORAL LIQD FEEDTUBE SCH ×2 (09:00→21:06)
--- NOTE | 2022-03-20 10:10 | Progress Note ---
Assessment and Plan 61 y/o male with abnormal CT of chest. 03/20/22: Day 24 of intubation. No new recommendations. Still awaiting hospital update in regards to guardianship so that decisions can be made. Continue supportive measures. Wound care to see today. 03/19/22: Day 23 of intubation. Prognosis is still guarded. Will discuss with RT about attempts at daily PSV trials. Per notes, Wound care to see , wound was present on admission. 03/18/22: Day 22 of intubation. Prognosis remains guarded. Not able to obtain trach and peg with consent. Continue daily PSV trials as tolerated. 03/17/22: Day 21 of intubation. Still awaiting some form of decision maker for trach and peg placement. Guarded prognosis. 03/16/22: Day 20 of intubation. BP stable. Continue midodrine. Awaiting emergency guardianship from Court to obtain consent for trach and peg. Guarded prognosis. 03/15/22: Day 19 of intubation. BP now is marginal more regularly. Will give an additional liter bolus of LR now. May need to increase Midodrine back to 5. Needs trach in order to be safely weaned from ventilator. Will need peg tube placement in addition to trach. Prognosis remains guarded. Continue PSV trials as tolerated. 03/14/22: Day 18 of intubation. Vitals stable and mental status is unchanged. Still in need of tracheostomy as well as peg tube placement. No guardian appointed yet. 03/13/22: Day 17 of intubation. Agree with bolus and restarting of midodrine. was stopped previously secondary to bradycardia. If patient spikes temp, will culture blood and urine and repeat CXR. Continue daily PSV trials to assess ability for vent liberation. Continues to need trach however no family/guardian to provide consent. Guarded prognosis. 03/12/22: Day 16 of intubation. Following up with hospital in regards to guardian. Continue supportive measures. Guarded prognosis. 03/11/22: hospital now attempting to find emergency guardian to have consent for trach as ethics committee cannot comment on this matter so unable to help. Until then will remain intubated orally. Failed PSV yesterday, will continue to attempt on daily basis. Unfortunate situation. Guarded prognosis. 03/10/22: Today nuñez day 14 of intubation. Given patient's mental state and increased risk of aspiration, the likelihood of conventional extubation with s uccess is very very slim and the patient has already failed this in an extremely short period of time (less than 1 hour). I suspect that he will fail again if tried and could create more difficult reintubation as he was a difficult reintubation on his failed extubation attempt. To prevent further decline and potential complications of prolonged mechanical ventilation, will discuss with ethics and the hospital to use 2 physician consent to obtain trach and peg for this patient with hopes of liberating him from the mechanical ventilator. he has very minimal vent requirements but as been stated several times above, he continues to aspirate and failed conventional extubation almost immediately. Will consult surgery today. Dr. Mancia is prepared to sign consent as well as myself. Hopeful surgery will be on board with this. Continue supportive care for now. Attempt daily PSV trials. 03/07/22: Daily PSV trials as tolerated. Still no one to step up as adult friend. patient has now been intubated since 02/24/22 and is approaching the time period in which prolonged mechanical ventilation could lead to significant complications that could be detrimental to health (infection, stenosis, malacia etc). Will discuss again with ethics but in regards to medical necessity, may need to consider two physician consent if no one is able to claim responsibility for this patient. He is a full code and we must work in his best interest to prevent further harm. Continue supportive measures but he is not a candidate for conventional extubation given his mental state, despite being on minimal support. He has already failed this before. 03/06/22: PSV trials daily. Will discuss with RT. Spoke with ethics. Plan in place and awaiting on news from care home and state. Continue supportive measures. Patient has been intubated since 02/24/22 and is approaching the 2 week shadi of intubation will need to make decisions soon to avoid unnecessary complications related to prolonged intubation. 03/05/22: Will follow up with ethics today. Awaiting some guidance about consent for trach and peg. This is a medical necessity to liberate patient from mechanical ventilation. Continue supportive measures. Ok with daily PSV trials 03/04/22: Follow up with ethics later this afternoon. Spoke with RT and patient does have cuff leak, will stop steroids. Stopping midodrine as BP is stable and bradycardia likely from this. 03/03/22: Await ethics eval. CM has spoken with state as well. Daily cuff leaks. Will start to wean steroids tomorrow. Midodrine can cause bradycardia. If continues or worsens will stop. Guarded prognosis. 03/02/22: Continue supportive measures. Await ethics consult before surgery consult for trach and peg. no further need for fluid boluses. Will continue stress dose steroids but have daily air leak checks by RT. Still will need trach, will not attempt extubation again. Guarded prognosis. 03/01/22: Patient is having increased urine output. This could be the cause of new onset hypotension. Will bolus 2 more liters of LR now and reassess. If th is continues may need to work up for SIADH including repeat head CT. Follow up ethics review of case. Will need trach for ventilator liberation. Overall prognosis remains guarded. 02/28/22: Will obtain CT neck, noncontrast to look for airway edema or other possible etiologies for failure. Needs ethics consult as given patient's mental state, inability to clear secretions appropriately, will need trach now that he has failed extubation. However he has no family and no POA so no one to give consent. Continue supportive measures. Guarded prognosis. 02/27/22: Continue improvement of oxygenation. Will drop PEEP down today with goal of being at 6 by in the morning. Will repeat CT scan to confirm improvement as no endobronchial lesion was seen, but also to make sure no parenchymal mass. There was no evidence of extrinsic compression during bronch. Likely extubation tomorrow post CT. 02/26/22: Repeat CXR now. Wean Vent as tolerated. Hopeful extubation soon. Mucous removed. NO ENDOBRONCHIAL LESION/MASS 02/25/22: Bronch tentatively planned for tomorrow with therapeutic scope. Awaiting GI lab to give a time. NPO after midnight. Continue high PEEP 02/24/22: WIll attempt to bronch tomorrow morning. NPO after midnight. Just received word from GI lab they are not able to do bronch tomorrow. Cancel NPO order. Continue to feed patient. Repeat ABG in AM along with CXR. 02/21/22: No new pulm recs for today. Please obtain repeat CXR likely on Thursday. If patient happens to get worse, likely not a candidate for bipap given his weak cough and mental state and inability to communicate. If worsens and requires intubation, will bronch then under emergent circumstances if no POA or family is able to be located. Continue CPT. Will discuss with RT about NT suctioning. 02/20/22: Saw speech while on the floor. Would like patient to be NPO now. Discussed with nurse on floor and with IMS. Same hazel [address] as yesterday. Would benefit from bronch if able to get consent as this is not emergent. Continue CPT and q shift NT suctioning. Reviewed admission in the past and of note, patient was recently admitted last month and had a CXR done on the 29 of January that was normal. Given this patient's medical history and the history that I obtained from the nursing staff that at the [facility] he was eating solid foods, I suspect that this is aspiration, possibly of a foreign body (most likely food) with atelectasis of the right lower lobe. It is highly unlikely that a mass evolved in size in less than a months time and patient, besides age, has no real risk factors for lung carcinoma. Discussed with the nurse and unfortunately there is no identifiable person that is able to give consent. Bronchoscopy is needed in the case to e valuate to see if lung mass is there vs foreign body, but at this time not able to do. In the meanwhile will recommend the following. 1. Will order CPT with neb therapy 3x daily 2. Suggest maybe NT suctioning q shift. May use nasal trumpet, however do not leave this device in the patient 3. Aspiration precautions 4. Consider speech eval to assess swallowing. Will continue to follow. CCT 31 minutes. Subjective Date of service: 03/20/22 Principal diagnosis: f/u Acute respiratory failure Interval history: Afebrile, vss. Objective Vital Signs - 12hr 03/19/22 03/20/22 03/20/22 23:00 00:00 00:02 Temperature 98.0 F Pulse Rate 75 75 77 Pulse Rate [ Anterior Bilateral Throughout] Pulse Rate [ Bilateral Throughout] Pulse Rate [ 57 L From Monitor] Respiratory 14 14 15 Rate Respiratory Rate [Anterior Bilateral Throughout] Respiratory Rate [Bilateral Throughout] Blood Pressure 120/64 116/75 121/61 O2 Sat by Pulse 99 100 95 Oximetry 03/20/22 03/20/22 03/20/22 00:24 01:00 02:00 Temperature Pulse Rate 77 77 72 Pulse Rate [ Anterior Bilateral Throughout] Pulse Rate [ Bilateral Throughout] Pulse Rate [ From Monitor] Respiratory 16 15 Rate Respiratory Rate [Anterior Bilateral Throughout] Respiratory Rate [Bilateral Throughout] Blood Pressure 120/64 109/64 117/64 O2 Sat by Pulse 99 98 99 Oximetry 03/20/22 03/20/22 03/20/22 03:00 04:00 04:35 Temperature 98.0 F Pulse Rate 75 71 78 Pulse Rate [ Anterior Bilateral Throughout] Pulse Rate [ 78 Bilateral Throughout] Pulse Rate [ 57 L From Monitor] Respiratory 14 14 Rate Respiratory Rate [Anterior Bilateral Throughout] Respiratory 15 Rate [Bilateral Throughout] Blood Pressure 114/67 117/61 117/61 O2 Sat by Pulse 98 100 99 Oximetry 03/20/22 03/20/22 03/20/22 05:00 06:00 07:00 Temperature Pulse Rate 73 78 80 Pulse Rate [ Anterior Bilateral Throughout] Pulse Rate [ Bilateral Throughout] Pulse Rate [ From Monitor] Respiratory 14 18 15 Rate Respiratory Rate [Anterior Bilateral Throughout] Respiratory Rate [Bilateral Throughout] Blood Pressure 98/56 114/64 114/64 O2 Sat by Pulse 98 99 98 Oximetry 03/20/22 08:00 Temperature Pulse Rate 96 H Pulse Rate [ 84 Anterior Bilateral Throughout] Pulse Rate [ Bilateral Throughout] Pulse Rate [ From Monitor] Respiratory Rate Respiratory 16 Rate [Anterior Bilateral Throughout] Respiratory Rate [Bilateral Throughout] Blood Pressure 118/71 O2 Sat by Pulse 98 Oximetry Constitutional: alert, other (critically ill on ventilator) Eyes: non-icteric ENT: oropharynx moist Neck: supple Effort: normal Ascultation: Bilateral: diminished breath sounds, rhonchi Cardiovascular: regular rate and rhythm (no mrg) Gastrointestinal: normoactive bowel sounds, soft, non-tender (on o2 vest in place), non-distended Integumentary: normal Extremities: no cyanosis, no edema Neurologic: other (awake) Psychiatric: other (unable to assess) CBC and BMP: 03/20/22 04:09 03/20/22 04:09 ABG, PT/INR, D-dimer: ABG ABG pH 7.476 pH Units (7.350-7.450) H 03/11/22 05:10 ABG pCO2 41.2 mm Hg 03/11/22 05:10 ABG pO2 84.0 mm Hg (80.0-90.0) 03/11/22 05:10 ABG O2 Saturation 97.1 % (95.0-99.0) 03/11/22 05:10 PT/INR, D-dimer PT 16.2 Sec. (12.2-14.9) H 03/11/22 04:02 INR 1.16 (0.87-1.13) H 03/11/22 04:02 Abnormal lab findings: Abnormal Labs 02/18/22 02/18/22 02/18/22 19:34 21:02 21:02 WBC RBC Hgb Hct MCV 101 H MCH 34 H MCHC RDW 16.1 H Lymph % (Auto) [place] % (Auto) 12.4 H Lymph # (Auto) [place] # (Auto) 1.2 H Seg Neutrophils % 73.0 H Seg Neuts % (Manual) Lymphocytes % (Manual) Seg Neutrophils # Seg Neutrophils # Man Lymphocytes # (Manual) PT 16.9 H INR 1.20 H ABG pH ABG pO2 ABG HCO3 ABG O2 Saturation ABG Base Excess ABG Hemoglobin Oxyhemoglobin Sodium Potassium Chloride Carbon Dioxide BUN Creatinine Glucose POC Glucose 116 H Calcium Phosphorus AST ALT Ammonia Albumin 02/18/22 02/18/22 02/18/22 21:02 22:45 23:22 WBC RBC Hgb Hct MCV MCH MCHC RDW Lymph % (Auto) [place] % (Auto) Lymph # (Auto) [place] # (Auto) Seg Neutrophils % Seg Neuts % (Manual) Lymphocytes % (Manual) Seg Neutrophils # Seg Neutrophils # Man Lymphocytes # (Manual) PT INR ABG pH ABG pO2 55.6 L ABG HCO3 28.4 H ABG O2 Saturation 91.5 L ABG Base Excess 3.8 H ABG Hemoglobin 13.2 L Oxyhemoglobin 89.6 L Sodium Potassium 5.1 H Chloride Carbon Dioxide BUN Creatinine Glucose 102 H POC Glucose Calcium Phosphorus AST 48 H ALT 64 H Ammonia 14.0 L Albumin 2.7 L 02/20/22 02/20/22 02/23/22 04:59 04:59 06:29 WBC 11.4 H RBC Hgb Hct MCV 103 H MCH 33 H MCHC RDW 16.5 H Lymph % (Auto) 5.5 L [place] % (Auto) 12.1 H Lymph # (Auto) 0.6 L [place] # (Auto) 1.4 H Seg Neutrophils % 81.4 H Seg Neuts % (Manual) Lymphocytes % (Manual) Seg Neutrophils # 9.2 H Seg Neutrophils # Man Lymphocytes # (Manual) PT INR ABG pH ABG pO2 ABG HCO3 ABG O2 Saturation ABG Base Excess ABG Hemoglobin Oxyhemoglobin Sodium Potassium Chloride Carbon Dioxide BUN Creatinine Glucose POC Glucose 113 H Calcium 8.2 L Phosphorus AST ALT Ammonia Albumin 02/23/22 02/23/22 02/24/22 11:22 16:10 00:02 WBC RBC Hgb Hct MCV MCH MCHC RDW Lymph % (Auto) [place] % (Auto) Lymph # (Auto) [place] # (Auto) Seg Neutrophils % Seg Neuts % (Manual) Lymphocytes % (Manual) Seg Neutrophils # Seg Neutrophils # Man Lymphocytes # (Manual) PT INR ABG pH ABG pO2 ABG HCO3 ABG O2 Saturation ABG Base Excess ABG Hemoglobin Oxyhemoglobin Sodium Potassium Chloride Carbon Dioxide BUN Creatinine Glucose POC Glucose 108 H 115 H 109 H Calcium Phosphorus AST ALT Ammonia Albumin 02/24/22 02/24/22 02/24/22 11:05 11:05 13:20 WBC RBC 3.55 L Hgb Hct MCV 100 H MCH 34 H MCHC RDW 15.6 H Lymph % (Auto) [place] % (Auto) Lymph # (Auto) [place] # (Auto) Seg Neutrophils % Seg Neuts % (Manual) Lymphocytes % (Manual) Seg Neutrophils # Seg Neutrophils # Man Lymphocytes # (Manual) PT INR ABG pH ABG pO2 ABG HCO3 ABG O2 Saturation ABG Base Excess ABG Hemoglobin Oxyhemoglobin Sodium 146 H Potassium 3.2 L D Chloride 108.4 H Carbon Dioxide BUN Creatinine 0.5 L Glucose POC Glucose 111 H Calcium 7.9 L Phosphorus 2.20 L AST ALT Ammonia Albumin 02/24/22 02/24/22 02/24/22 16:30 17:03 20:25 WBC RBC Hgb Hct MCV MCH MCHC RDW Lymph % (Auto) [place] % (Auto) Lymph # (Auto) [place] # (Auto) Seg Neutrophils % Seg Neuts % (Manual) Lymphocytes % (Manual) Seg Neutrophils # Seg Neutrophils # Man Lymphocytes # (Manual) PT INR ABG pH 7.319 L ABG pO2 65.3 L ABG HCO3 31.3 H ABG O2 Saturation 92.2 L ABG Base Excess 3.8 H ABG Hemoglobin 12.0 L Oxyhemoglobin 90.3 L Sodium Potassium Chloride 107.9 H Carbon Dioxide BUN 8 L Creatinine 0.4 L Glucose POC Glucose 108 H Calcium 7.6 L Phosphorus 4.60 H D AST ALT Ammonia Albumin 02/25/22 02/25/22 02/25/22 04:12 04:12 05:05 WBC RBC 3.07 L Hgb 10.2 L Hct 31.5 L MCV 103 H MCH 33 H MCHC RDW 15.6 H Lymph % (Auto) [place] % (Auto) Lymph # (Auto) [place] # (Auto) Seg Neutrophils % Seg Neuts % (Manual) Lymphocytes % (Manual) Seg Neutrophils # Seg Neutrophils # Man Lymphocytes # (Manual) PT INR ABG pH ABG pO2 ABG HCO3 32.5 H ABG O2 Saturation ABG Base Excess 5.6 H ABG Hemoglobin 10.8 L Oxyhemoglobin 94.8 L Sodium Potassium 3.5 L Chloride 107.7 H Carbon Dioxide BUN Creatinine 0.5 L Glucose POC Glucose Calcium 7.0 L Phosphorus AST ALT Ammonia Albumin 02/25/22 02/25/22 02/26/22 12:05 18:33 00:07 WBC RBC Hgb Hct MCV MCH MCHC RDW Lymph % (Auto) [place] % (Auto) Lymph # (Auto) [place] # (Auto) Seg Neutrophils % Seg Neuts % (Manual) Lymphocytes % (Manual) Seg Neutrophils # Seg Neutrophils # Man Lymphocytes # (Manual) PT INR ABG pH ABG pO2 ABG HCO3 ABG O2 Saturation ABG Base Excess ABG Hemoglobin Oxyhemoglobin Sodium Potassium Chloride Carbon Dioxide BUN Creatinine Glucose POC Glucose 127 H 125 H 114 H Calcium Phosphorus AST ALT Ammonia Albumin 02/26/22 02/26/22 02/26/22 03:30 04:42 11:34 WBC RBC Hgb Hct MCV MCH MCHC RDW Lymph % (Auto) [place] % (Auto) Lymph # (Auto) [place] # (Auto) Seg Neutrophils % Seg Neuts % (Manual) Lymphocytes % (Manual) Seg Neutrophils # Seg Neutrophils # Man Lymphocytes # (Manual) PT INR ABG pH ABG pO2 143.2 H ABG HCO3 33.2 H ABG O2 Saturation ABG Base Excess 6.5 H ABG Hemoglobin 9.4 L Oxyhemoglobin Sodium Potassium Chloride Carbon Dioxide 32 H BUN Creatinine 0.7 L Glucose POC Glucose 114 H Calcium 8.0 L Phosphorus AST ALT Ammonia Albumin 02/26/22 02/26/22 02/27/22 18:17 23:37 04:19 WBC 13.7 H RBC 2.78 L Hgb 9.3 L Hct 28.5 L MCV 103 H MCH 33 H MCHC RDW 16.3 H Lymph % (Auto) [place] % (Auto) Lymph # (Auto) [place] # (Auto) Seg Neutrophils % Seg Neuts % (Manual) Lymphocytes % (Manual) Seg Neutrophils # Seg Neutrophils # Man Lymphocytes # (Manual) PT INR ABG pH ABG pO2 ABG HCO3 ABG O2 Saturation ABG Base Excess ABG Hemoglobin Oxyhemoglobin Sodium Potassium Chloride Carbon Dioxide BUN Creatinine Glucose POC Glucose 111 H 117 H Calcium Phosphorus AST ALT Ammonia Albumin 02/27/22 02/27/22 02/27/22 04:19 04:35 05:27 WBC RBC Hgb Hct MCV MCH MCHC RDW Lymph % (Auto) [place] % (Auto) Lymph # (Auto) [place] # (Auto) Seg Neutrophils % Seg Neuts % (Manual) Lymphocytes % (Manual) Seg Neutrophils # Seg Neutrophils # Man Lymphocytes # (Manual) PT INR ABG pH ABG pO2 96.3 H ABG HCO3 34.9 H ABG O2 Saturation ABG Base Excess 8.1 H ABG Hemoglobin Oxyhemoglobin Sodium Potassium Chloride Carbon Dioxide 31 H BUN Creatinine 0.6 L Glucose 107 H POC Glucose 133 H Calcium 7.8 L Phosphorus AST ALT Ammonia Albumin 02/27/22 02/27/22 02/28/22 11:15 23:35 03:38 WBC 13.3 H RBC 3.05 L Hgb 10.2 L Hct 30.7 L MCV 101 H MCH 33 H MCHC RDW 16.1 H Lymph % (Auto) [place] % (Auto) Lymph # (Auto) [place] # (Auto) Seg Neutrophils % Seg Neuts % (Manual) Lymphocytes % (Manual) Seg Neutrophils # Seg Neutrophils # Man Lymphocytes # (Manual) PT INR ABG pH ABG pO2 ABG HCO3 ABG O2 Saturation ABG Base Excess ABG Hemoglobin Oxyhemoglobin Sodium Potassium Chloride Carbon Dioxide BUN Creatinine Glucose POC Glucose 129 H 122 H Calcium Phosphorus AST ALT Ammonia Albumin 02/28/22 02/28/22 02/28/22 04:50 05:30 09:30 WBC RBC Hgb Hct MCV MCH MCHC RDW Lymph % (Auto) [place] % (Auto) Lymph # (Auto) [place] # (Auto) Seg Neutrophils % Seg Neuts % (Manual) Lymphocytes % (Manual) Seg Neutrophils # Seg Neutrophils # Man Lymphocytes # (Manual) PT INR ABG pH 7.451 H 7.488 H ABG pO2 77.0 L ABG HCO3 37.1 H 34.6 H ABG O2 Saturation ABG Base Excess 11.5 H 10.1 H ABG Hemoglobin 10.1 L 10.0 L Oxyhemoglobin Sodium Potassium Chloride Carbon Dioxide BUN Creatinine Glucose POC Glucose 121 H Calcium Phosphorus AST ALT Ammonia Albumin 02/28/22 02/28/22 03/01/22 11:36 23:07 04:27 WBC 12.5 H RBC 2.85 L Hgb 9.5 L Hct 28.6 L MCV 101 H MCH 33 H MCHC RDW 15.7 H Lymph % (Auto) [place] % (Auto) Lymph # (Auto) [place] # (Auto) Seg Neutrophils % Seg Neuts % (Manual) Lymphocytes % (Manual) Seg Neutrophils # Seg Neutrophils # Man Lymphocytes # (Manual) PT INR ABG pH ABG pO2 ABG HCO3 ABG O2 Saturation ABG Base Excess ABG Hemoglobin Oxyhemoglobin Sodium Potassium Chloride Carbon Dioxide BUN Creatinine Glucose POC Glucose 112 H 107 H Calcium Phosphorus AST ALT Ammonia Albumin 03/01/22 03/01/22 03/01/22 04:27 05:05 11:29 WBC RBC Hgb Hct MCV MCH MCHC RDW Lymph % (Auto) [place] % (Auto) Lymph # (Auto) [place] # (Auto) Seg Neutrophils % Seg Neuts % (Manual) Lymphocytes % (Manual) Seg Neutrophils # Seg Neutrophils # Man Lymphocytes # (Manual) PT INR ABG pH ABG pO2 ABG HCO3 ABG O2 Saturation ABG Base Excess ABG Hemoglobin Oxyhemoglobin Sodium 147 H D Potassium Chloride Carbon Dioxide 34 H BUN Creatinine 0.6 L Glucose 128 H POC Glucose 119 H 121 H Calcium 7.9 L Phosphorus AST ALT Ammonia Albumin 03/01/22 03/01/22 03/02/22 16:15 23:57 05:18 WBC RBC Hgb Hct MCV MCH MCHC RDW Lymph % (Auto) [place] % (Auto) Lymph # (Auto) [place] # (Auto) Seg Neutrophils % Seg Neuts % (Manual) Lymphocytes % (Manual) Seg Neutrophils # Seg Neutrophils # Man Lymphocytes # (Manual) PT INR ABG pH ABG pO2 110.5 H ABG HCO3 33.0 H ABG O2 Saturation ABG Base Excess 7.4 H ABG Hemoglobin 8.6 L Oxyhemoglobin Sodium Potassium Chloride Carbon Dioxide BUN Creatinine Glucose POC Glucose 134 H 140 H Calcium Phosphorus AST ALT Ammonia Albumin 03/02/22 03/02/22 03/02/22 05:53 09:04 09:04 WBC 15.0 H RBC 3.00 L Hgb 9.7 L Hct 30.7 L MCV 102 H MCH MCHC RDW 16.6 H Lymph % (Auto) [place] % (Auto) Lymph # (Auto) [place] # (Auto) Seg Neutrophils % Seg Neuts % (Manual) Lymphocytes % (Manual) Seg Neutrophils # Seg Neutrophils # Man Lymphocytes # (Manual) PT INR ABG pH ABG pO2 ABG HCO3 ABG O2 Saturation ABG Base Excess ABG Hemoglobin Oxyhemoglobin Sodium Potassium Chloride Carbon Dioxide 31 H BUN Creatinine 0.6 L Glucose 157 H POC Glucose 158 H Calcium 7.9 L Phosphorus AST ALT Ammonia Albumin 03/02/22 03/02/22 03/02/22 11:36 16:25 23:17 WBC RBC Hgb Hct MCV MCH MCHC RDW Lymph % (Auto) [place] % (Auto) Lymph # (Auto) [place] # (Auto) Seg Neutrophils % Seg Neuts % (Manual) Lymphocytes % (Manual) Seg Neutrophils # Seg Neutrophils # Man Lymphocytes # (Manual) PT INR ABG pH ABG pO2 ABG HCO3 ABG O2 Saturation ABG Base Excess ABG Hemoglobin Oxyhemoglobin Sodium Potassium Chloride Carbon Dioxide BUN Creatinine Glucose POC Glucose 160 H 132 H 157 H Calcium Phosphorus AST ALT Ammonia Albumin 03/03/22 03/03/22 03/03/22 03:54 03:54 05:27 WBC 19.5 H RBC 2.79 L Hgb 9.0 L Hct 28.6 L MCV 102 H MCH MCHC RDW 16.2 H Lymph % (Auto) [place] % (Auto) Lymph # (Auto) [place] # (Auto) Seg Neutrophils % Seg Neuts % (Manual) 95.0 H Lymphocytes % (Manual) 3.0 L Seg Neutrophils # Seg Neutrophils # Man 18.5 H Lymphocytes # (Manual) 0.6 L PT INR ABG pH ABG pO2 ABG HCO3 ABG O2 Saturation ABG Base Excess ABG Hemoglobin Oxyhemoglobin Sodium Potassium Chloride Carbon Dioxide BUN Creatinine 0.6 L Glucose 130 H POC Glucose 149 H Calcium 8.1 L Phosphorus AST ALT Ammonia Albumin 0803/03/22 03/04/22 11:13 17:30 00:02 WBC RBC Hgb Hct MCV MCH MCHC RDW Lymph % (Auto) [place] % (Auto) Lymph # (Auto) [place] # (Auto) Seg Neutrophils % Seg Neuts % (Manual) Lymphocytes % (Manual) Seg Neutrophils # Seg Neutrophils # Man Lymphocytes # (Manual) PT INR ABG pH ABG pO2 ABG HCO3 ABG O2 Saturation ABG Base Excess ABG Hemoglobin Oxyhemoglobin Sodium Potassium Chloride Carbon Dioxide BUN Creatinine Glucose POC Glucose 139 H 138 H 157 H Calcium Phosphorus AST ALT Ammonia Albumin 03/04/22 03/04/22 03/04/22 05:32 05:32 05:48 WBC 16.1 H RBC 2.81 L Hgb 9.3 L Hct 28.8 L MCV 102 H MCH 33 H MCHC RDW 16.7 H Lymph % (Auto) [place] % (Auto) Lymph # (Auto) [place] # (Auto) Seg Neutrophils % Seg Neuts % (Manual) Lymphocytes % (Manual) Seg Neutrophils # Seg Neutrophils # Man Lymphocytes # (Manual) PT INR ABG pH ABG pO2 ABG HCO3 ABG O2 Saturation ABG Base Excess ABG Hemoglobin Oxyhemoglobin Sodium Potassium Chloride Carbon Dioxide BUN Creatinine 0.7 L Glucose 135 H POC Glucose 145 H Calcium 8.3 L Phosphorus AST ALT Ammonia Albumin 03/04/22 03/04/22 03/05/22 11:34 16:29 00:28 WBC RBC Hgb Hct MCV MCH MCHC RDW Lymph % (Auto) [place] % (Auto) Lymph # (Auto) [place] # (Auto) Seg Neutrophils % Seg Neuts % (Manual) Lymphocytes % (Manual) Seg Neutrophils # Seg Neutrophils # Man Lymphocytes # (Manual) PT INR ABG pH ABG pO2 ABG HCO3 ABG O2 Saturation ABG Base Excess ABG Hemoglobin Oxyhemoglobin Sodium Potassium Chloride Carbon Dioxide BUN Creatinine Glucose POC Glucose 148 H 140 H 116 H Calcium Phosphorus AST ALT Ammonia Albumin 03/05/22 03/05/22 03/05/22 06:29 11:30 17:38 WBC RBC Hgb Hct MCV MCH MCHC RDW Lymph % (Auto) [place] % (Auto) Lymph # (Auto) [place] # (Auto) Seg Neutrophils % Seg Neuts % (Manual) Lymphocytes % (Manual) Seg Neutrophils # Seg Neutrophils # Man Lymphocytes # (Manual) PT INR ABG pH ABG pO2 ABG HCO3 ABG O2 Saturation ABG Base Excess ABG Hemoglobin Oxyhemoglobin Sodium Potassium Chloride Carbon Dioxide BUN Creatinine Glucose POC Glucose 114 H 114 H 117 H Calcium Phosphorus AST ALT Ammonia Albumin 03/06/22 03/06/22 03/06/22 04:17 04:17 06:06 WBC 13.4 H RBC 2.85 L Hgb 9.4 L Hct 29.0 L MCV 102 H MCH 33 H MCHC RDW 16.4 H Lymph % (Auto) [place] % (Auto) Lymph # (Auto) [place] # (Auto) Seg Neutrophils % Seg Neuts % (Manual) Lymphocytes % (Manual) Seg Neutrophils # Seg Neutrophils # Man Lymphocytes # (Manual) PT INR ABG pH ABG pO2 ABG HCO3 ABG O2 Saturation ABG Base Excess ABG Hemoglobin Oxyhemoglobin Sodium Potassium 3.5 L Chloride Carbon Dioxide 31 H BUN Creatinine 0.6 L Glucose 101 H POC Glucose 106 H Calcium 7.7 L Phosphorus 2.00 L AST ALT Ammonia Albumin 03/06/22 03/06/22 03/07/22 18:04 23:50 05:14 WBC RBC Hgb Hct MCV MCH MCHC RDW Lymph % (Auto) [place] % (Auto) Lymph # (Auto) [place] # (Auto) Seg Neutrophils % Seg Neuts % (Manual) Lymphocytes % (Manual) Seg Neutrophils # Seg Neutrophils # Man Lymphocytes # (Manual) PT INR ABG pH ABG pO2 ABG HCO3 ABG O2 Saturation ABG Base Excess ABG Hemoglobin Oxyhemoglobin Sodium Potassium Chloride Carbon Dioxide BUN Creatinine Glucose POC Glucose 108 H 115 H 116 H Calcium Phosphorus AST ALT Ammonia Albumin 03/07/22 03/07/22 03/08/22 11:42 18:13 04:34 WBC RBC 2.86 L Hgb 9.2 L Hct 29.3 L MCV 103 H MCH MCHC 31 L RDW 16.9 H Lymph % (Auto) [place] % (Auto) Lymph # (Auto) [place] # (Auto) Seg Neutrophils % Seg Neuts % (Manual) Lymphocytes % (Manual) Seg Neutrophils # Seg Neutrophils # Man Lymphocytes # (Manual) PT INR ABG pH ABG pO2 ABG HCO3 ABG O2 Saturation ABG Base Excess ABG Hemoglobin Oxyhemoglobin Sodium Potassium Chloride Carbon Dioxide BUN Creatinine Glucose POC Glucose 123 H 109 H Calcium Phosphorus AST ALT Ammonia Albumin 03/08/22 03/08/22 03/08/22 04:34 11:29 16:34 WBC RBC Hgb Hct MCV MCH MCHC RDW Lymph % (Auto) [place] % (Auto) Lymph # (Auto) [place] # (Auto) Seg Neutrophils % Seg Neuts % (Manual) Lymphocytes % (Manual) Seg Neutrophils # Seg Neutrophils # Man Lymphocytes # (Manual) PT INR ABG pH ABG pO2 ABG HCO3 ABG O2 Saturation ABG Base Excess ABG Hemoglobin Oxyhemoglobin Sodium Potassium Chloride Carbon Dioxide 33 H BUN Creatinine 0.5 L Glucose 109 H POC Glucose 117 H 109 H Calcium 7.6 L Phosphorus AST ALT Ammonia Albumin 03/08/22 03/09/22 03/10/22 23:56 11:15 03:57 WBC RBC 2.99 L Hgb 9.9 L Hct 30.3 L MCV 102 H MCH 33 H MCHC RDW 16.8 H Lymph % (Auto) 13.3 L [place] % (Auto) 12.5 H Lymph # (Auto) [place] # (Auto) 1.3 H Seg Neutrophils % 72.4 H Seg Neuts % (Manual) Lymphocytes % (Manual) Seg Neutrophils # Seg Neutrophils # Man Lymphocytes # (Manual) PT INR ABG pH ABG pO2 ABG HCO3 ABG O2 Saturation ABG Base Excess ABG Hemoglobin Oxyhemoglobin Sodium Potassium Chloride Carbon Dioxide BUN Creatinine Glucose POC Glucose 106 H 110 H Calcium Phosphorus AST ALT Ammonia Albumin 03/10/22 03/10/22 03/10/22 03:57 04:50 16:04 WBC RBC Hgb Hct MCV MCH MCHC RDW Lymph % (Auto) [place] % (Auto) Lymph # (Auto) [place] # (Auto) Seg Neutrophils % Seg Neuts % (Manual) Lymphocytes % (Manual) Seg Neutrophils # Seg Neutrophils # Man Lymphocytes # (Manual) PT INR ABG pH 7.465 H ABG pO2 ABG HCO3 31.9 H ABG O2 Saturation ABG Base Excess 7.3 H ABG Hemoglobin 11.0 L Oxyhemoglobin Sodium Potassium 3.4 L Chloride Carbon Dioxide BUN Creatinine 0.6 L Glucose POC Glucose 115 H Calcium 8.1 L Phosphorus AST ALT Ammonia Albumin 1.9 L 03/11/22 03/11/22 03/11/22 04:02 04:02 04:02 WBC 12.0 H RBC 2.81 L Hgb 9.2 L Hct 29.1 L MCV 103 H MCH 33 H MCHC RDW 17.5 H Lymph % (Auto) [place] % (Auto) Lymph # (Auto) [place] # (Auto) Seg Neutrophils % Seg Neuts % (Manual) Lymphocytes % (Manual) Seg Neutrophils # Seg Neutrophils # Man Lymphocytes # (Manual) PT 16.2 H INR 1.16 H ABG pH ABG pO2 ABG HCO3 ABG O2 Saturation ABG Base Excess ABG Hemoglobin Oxyhemoglobin Sodium Potassium Chloride Carbon Dioxide BUN Creatinine 0.5 L Glucose 104 H POC Glucose Calcium 7.9 L Phosphorus AST ALT Ammonia Albumin 03/11/22 03/11/22 03/11/22 05:10 11:07 16:32 WBC RBC Hgb Hct MCV MCH MCHC RDW Lymph % (Auto) [place] % (Auto) Lymph # (Auto) [place] # (Auto) Seg Neutrophils % Seg Neuts % (Manual) Lymphocytes % (Manual) Seg Neutrophils # Seg Neutrophils # Man Lymphocytes # (Manual) PT INR ABG pH 7.476 H ABG pO2 ABG HCO3 29.7 H ABG O2 Saturation ABG Base Excess 5.7 H ABG Hemoglobin 9.1 L Oxyhemoglobin Sodium Potassium Chloride Carbon Dioxide BUN Creatinine Glucose POC Glucose 108 H 121 H Calcium Phosphorus AST ALT Ammonia Albumin 03/12/22 03/13/22 03/13/22 05:51 06:08 12:02 WBC RBC 2.73 L Hgb 9.0 L Hct 27.5 L MCV 101 H MCH 33 H MCHC RDW 17.2 H Lymph % (Auto) [place] % (Auto) Lymph # (Auto) [place] # (Auto) Seg Neutrophils % Seg Neuts % (Manual) Lymphocytes % (Manual) Seg Neutrophils # Seg Neutrophils # Man Lymphocytes # (Manual) PT INR ABG pH ABG pO2 ABG HCO3 ABG O2 Saturation ABG Base Excess ABG Hemoglobin Oxyhemoglobin Sodium Potassium Chloride Carbon Dioxide BUN Creatinine Glucose POC Glucose 116 H 111 H Calcium Phosphorus AST ALT Ammonia Albumin 03/13/22 03/13/22 03/14/22 12:48 18:17 03:58 WBC RBC 2.97 L Hgb 9.7 L Hct 30.0 L MCV 101 H MCH 33 H MCHC RDW 16.7 H Lymph % (Auto) [place] % (Auto) Lymph # (Auto) [place] # (Auto) Seg Neutrophils % Seg Neuts % (Manual) Lymphocytes % (Manual) Seg Neutrophils # Seg Neutrophils # Man Lymphocytes # (Manual) PT INR ABG pH ABG pO2 ABG HCO3 ABG O2 Saturation ABG Base Excess ABG Hemoglobin Oxyhemoglobin Sodium Potassium Chloride Carbon Dioxide BUN Creatinine Glucose POC Glucose 125 H 114 H Calcium Phosphorus AST ALT Ammonia Albumin 03/14/22 03/14/22 03/14/22 03:58 13:01 16:41 WBC RBC Hgb Hct MCV MCH MCHC RDW Lymph % (Auto) [place] % (Auto) Lymph # (Auto) [place] # (Auto) Seg Neutrophils % Seg Neuts % (Manual) Lymphocytes % (Manual) Seg Neutrophils # Seg Neutrophils # Man Lymphocytes # (Manual) PT INR ABG pH ABG pO2 ABG HCO3 ABG O2 Saturation ABG Base Excess ABG Hemoglobin Oxyhemoglobin Sodium Potassium Chloride Carbon Dioxide BUN Creatinine 0.6 L Glucose POC Glucose 118 H 109 H Calcium 8.2 L Phosphorus AST ALT Ammonia Albumin 03/16/22 03/16/22 03/17/22 05:28 05:28 23:19 WBC RBC 2.81 L Hgb 9.1 L Hct 27.8 L MCV 99 H MCH MCHC RDW 17.0 H Lymph % (Auto) [place] % (Auto) Lymph # (Auto) [place] # (Auto) Seg Neutrophils % Seg Neuts % (Manual) Lymphocytes % (Manual) Seg Neutrophils # Seg Neutrophils # Man Lymphocytes # (Manual) PT INR ABG pH ABG pO2 ABG HCO3 ABG O2 Saturation ABG Base Excess ABG Hemoglobin Oxyhemoglobin Sodium Potassium Chloride Carbon Dioxide BUN Creatinine 0.5 L Glucose POC Glucose 113 H Calcium 8.2 L Phosphorus AST ALT Ammonia Albumin 03/20/22 03/20/22 04:09 04:09 WBC RBC 2.90 L Hgb 9.6 L Hct 28.9 L MCV 100 H MCH 33 H MCHC RDW 17.4 H Lymph % (Auto) [place] % (Auto) Lymph # (Auto) [place] # (Auto) Seg Neutrophils % Seg Neuts % (Manual) Lymphocytes % (Manual) Seg Neutrophils # Seg Neutrophils # Man Lymphocytes # (Manual) PT INR ABG pH ABG pO2 ABG HCO3 ABG O2 Saturation ABG Base Excess ABG Hemoglobin Oxyhemoglobin Sodium Potassium Chloride Carbon Dioxide BUN Creatinine 0.6 L Glucose POC Glucose Calcium 8.2 L Phosphorus AST ALT Ammonia Albumin
--- NOTE | 2022-03-20 10:34 | Progress Note ---
<KEATON GOLD - Last Filed: 03/20/22 18:58> Assessment and Plan Assessment and plan: This is a 51-year-old male with HTN, seizure disorder, Down syndrome, HLD, partial blindness admitted with aspiration pneumonia, probable bronchogenic carcinoma, acute hypoxic respiratory failure and acute encephalopathy Hospital course to date: 02/19/2022. Consult pulmonary for further evaluation and possible bronchoscopy. I suspect patient has component of aspiration pneumonia as well. We will obtain a speech therapy evaluation for swallowing and start empiric antibiotics. Continue O2 supplementation to maintain sats greater than 92%. 02/20/2022. Pulmonary feels that the abnormality seen on CT scan is highly unlikely for a mass given negative chest x-ray 1 month ago and no risk factors. Etiology is likely secondary to aspiration from possibly a foreign body most likely food with atelectasis of the right lower lobe. Bronchoscopy is needed in the case to evaluate to see if lung mass is there vs foreign body, but at this time not able to do because no identifiable person that is able to give consent. Continue aspiration precautions and continue speech therapy evaluation for swallowing. Keep n.p.o. for now 02/21/2022. Patient remains NPO. Consider DHT placement. Follow-up with speech therapy evaluation. Pulmonology to consider bronchoscopy if able to obtain consent. Continue IV antibiotics for aspiration pneumonia 02/22/2022. Patient remains NPO. Consider DHT placement. Follow-up with speech therapy evaluation. Pulmonology to consider bronchoscopy if able to obtain consent. Continue IV antibiotics for aspiration pneumonia 02/23/2022. DHT placed yesterday. TF initiated for nutritional support. Patient currently with strict NPO. Aspiration precautions. Pulmonology to consider bronchoscopy if able to obtain consent. Continue IV antibiotics for aspiration pneumonia 02/24: Patient was transferred to the ICU for further monitoring. This morning patient remained on high flow nasal cannula on 40 L/100% and despite repeated nasotracheal suctioning patient SPO2 remained in the 80s. Patient was placed on nonrebreather and SPO2 increased to upper 80s. Patient was subsequently intubated by anesthesia. Started on sedation. 02/25: Patient remains sedated on fentanyl, potassium and magnesium repleted. IV fluids and amlodipine discontinued. Possible bronchoscopy tomorrow. 02/26: Patient had a bronchoscopy today which showed mucus and no endobronchial lesions or masses. FiO2 was increased to 100 during and postprocedure weaning as tolerated. Repeat CXR is much improved after bronc. Given 1 L LR bolus due to hypotension. No acute events reported overnight. 02/27: Decreased PEEP, will repeat CT of chest. no acute changes overnight. 02/28: Patient was extubated today however had to be be intubated shortly after. Patient ETT looked mispositioned on x-ray and Dr. Alonzo did do a bedside bronc. Patient was briefly hypotensive and on Levophed postintubation however Levophed was quickly titrated off and patient did not require central line. No acute events reported overnight. Will obtain CT neck d/t difficulty intubating. Ethi committee consulted. 03/04: Overnight patient was hypotensive and started on IVF. Patient started on steroids as no air leak noted and hypotension and given 2 L LR 03/05: Overnight patient received bolus per RN report, no orders seen. Continue supportive care 03/03: SB on the monitor, HR as low as 37, VSS. Will continue to monitor for now. Awaiting on desicion from [facility] for possible trach and PEG. Continue daily air leak per [facility] 03/04: MAIDA overnight. Remains stable on the vent. Awaiting on desicion from [facility] for possible trach and PEG. Continue current supportive measures 03/05: MAIDA overnight. Awaiting on desicion from [facility] for possible trach and PEG. Midodrine held yesterday, HR improved. Continue current supportive measures. Daily PSV trial as tolerated per [facility] 03/06: Remains stable on the vent. Continue current supportive measures, daily PSV trial per [facility]. Awaiting on desicion for possible trach and PEG. 03/07: MAIDA overnight, remains stable. Continue daily PSV trial as tolerated. Awaiting on desicion for possible trach and PEG. 03/08: Patient failed PSV trial this am due to tachycardia and increase RR. Continue supportive measures and daily PSV trial as tolerated. Possible discussion with [facility] and [facility] on Thursday in regards to medical necessity, may need to consider two physician consent if no one is able to claim responsibility for this patient. 03/09: MAIDA overnight. Continue current supportive measures and daily PSV trail as tolerated. Awaiting on desicion for possible trach and PEG, discussion with Ethics possibly tomorrow per [facility]. 03/10: no acute events overnight, PSV today. replete potassium. 03/11: No acute events reported overnight, patient failed PSV yesterday and will repeat today. Hospital to start guardianship process. 03/12: No acute events overnight. PSV today 03/13: Patient given 500ml normal saline and started on midodrine for h ypotension. No acute events reported overnight. Failed pressure support again this morning. 03/14: No acute events reported overnight, patient blood pressure seems better therefore midodrine discontinued. RT placed on CPAP need lasted for couple hours. Will remove summers 03/15: Midodrine was restarted yesterday evening for hypotension, Summers catheter not removed due to sacral ulcer and history of retention. Unable to crush Flomax and patient will not tolerate doxazosin given hypotension. Given LR bolus this morning. If blood pressure continues to be borderline after bolus, we will adjust management as needed. CPAP as tolerated 03/16: No acute events reported overnight, patient placed on CPAP trial this morning which he failed. 03/17: RT attempted PSV which he failed again today. No acute events reported overnight. 03/18: Awaiting ethic committee's decision on Trach/PEG. Patient tolerated PSV trial for over 3 hrs today, continue daily PSV trial as tolerated. 03/19: MAIDA overnight. Continue current supportive measures. Daily PSV trial as tolerated. Awaiting on desicion for possible trach and PEG. 03/20: MAIDA overnight. Daily PSV trial as tolerated. Awaiting decision on guardian ship for trach and PEG. Neuro: Acute encephalopathy, h/o seizure disorder, Down syndrome, partial blindness -Intubated and off sedation -Reorientation as needed -Maintain sleep-wake cycle -aspiration/seizure precautions -As needed analgesia -CT head showed no acute abnormality -Continue Keppra Cardiac: Hypotension, h/o HTN, HLD -Cardiology consulted, appreciate recommendations -Blood pressure monitoring per protocol -d/c amlodipine -On PO Midodrine for hypotension Respiratory: Acute hypoxic respiratory failure, r/o bronchogenic carcinoma -CCM consulted, appreciate recommendations -Intubated on 02/24 with a 8.0 at 23 at the lips but extubated 02/28 -reintubated 02/28 with 8.0 OETT -Vent settings: AC rate 14, TV 360, PEEP 6, FO2 30% -See RT notes for titration -VAP bundle -SPO2 monitoring -02/18 CTA chest showed no evidence of pulmonary embolism, suspected bronchogenic carcinoma with associated obstruction of the right lower lobe proximal bronchus segment, 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 adenopathy and suspected to left lower lobe metastatic nodule -02/26 Bronch->mucous, no lesion noted -02/27 CT chest showed right mainstem bronchus patent with small amount of interval bronchial fluid which may be mucus (this may account for the appearance of the prior CTA chest fluid-filled airway rather than entering bronchial lesion), previously seen complete left lower lobe since related to bronchial occlusion has significantly improved, there is persistent compressive atelectasis in the right lower lung secondary to the pleural effusion, bilateral pleural effusions, right lung pneumonia -CT neck showed no acute changes - IV Steroids stopped GI: Moderate protein calorie malnutrition -PPI -NTR consulted for tube feedings -BR: Senokot S : Hypernatremia (resolved) -FWF 200 ml q4 hr -Monitor intake and output -Renally dose medications -Avoid nephrotoxic medications -Trend BMP ID: Aspiration PNA Sacral Decubitus Ulcer (POA) -S/p Rocephin for 5 days (02/19-02/24) -Monitor WBC and temperature curve -Wound care consulted Endo: NAD -Avoid hypoglycemia -Accu-Cheks every 6 -Avoid hypoglycemia Heme: NAD -Trend CBC -Transfuse hemoglobin less than 7 -SCDs to BLE while in bed The high probability of a clinically significant, sudden or life threatening deterioration of the [resp] system(s) required my full and direct attention, intervention and personal management. The aggregate critical care time was [60] minutes. This time is in addition to time spent performing reported procedures but includes the following: [x] Data Review and interpretation [x] Patient assessment and monitoring of vital signs [x] Documentation [x] Medication orders and management Disposition Plan: ICU Total Time Spent with Patient (Minutes): 60 History Interval history: Patient seen and examined at the bedside. Remains stable on low vent setting, not on any sedation. Open eyes spontaneously and move extremities but does not follow any commands. SB to SR on the monitor this am, VSS. MAIDA overnight Hospitalist Physical - Physical exam Narrative exam: General appearance: Present: no acute distress, well-nourished, obese - EENT Eyes: Present: PERRL - Neck Neck: Present: normal ROM - Respiratory Respiratory effort: normal Respiratory: bilateral: rhonchi - Cardiovascular Rhythm: regular Heart Sounds: Present: S1 & S2 - Extremities Extremities: no ischemia, pulses intact, pulses symmetrical Extremity abnormal: edema - Peripheral Assessment Generalized Edema Type: Non-pitting Edema Degree: 1+ Capillary Refill: < 3 seconds Skin Temperature: Warm Peripheral Pulses: within normal limits - Abdominal General gastrointestinal: soft, non-distended, normal bowel sounds - Integumentary Integumentary: Present: warm, dry - Psychiatric Psychiatric: other (Intubated, unresponsive. Not on any sedations) - Neurologic Neurologic: moves all extremities, other (Intubated, unresponsive. Not on any sedations) - Allied Health Allied health notes reviewed: nursing, case management - Constitutional Vitals: Temp Pulse Resp BP Pulse Ox 98.0 F 84 16 118/71 98 03/20/22 04:00 03/20/22 08:00 03/20/22 08:00 03/20/22 08:00 03/20/22 08:00 HEART Score - HEART Score Troponin: Troponin T < 0.010 ng/mL (0.00-0.029) 02/18/22 21:02 Results - Labs CBC & Chem 7: 03/20/22 04:09 03/20/22 04:09 Labs: Laboratory Last Values WBC 6.0 K/mm3 (4.5-11.0) 03/20/22 04:09 RBC 2.90 M/mm3 (3.65-5.03) L 03/20/22 04:09 Hgb 9.6 gm/dl (11.8-15.2) L 03/20/22 04:09 Hct 28.9 % (35.5-45.6) L 03/20/22 04:09 MCV 100 fl (84-94) H 03/20/22 04:09 MCH 33 pg (28-32) H 03/20/22 04:09 MCHC 33 % (32-34) 03/20/22 04:09 RDW 17.4 % (13.2-15.2) H 03/20/22 04:09 Plt Count 339 K/mm3 (140-440) 03/20/22 04:09 Lymph % (Auto) 13.3 % (13.4-35.0) L 03/10/22 03:57 [place] % (Auto) 12.5 % (0.0-7.3) H 03/10/22 03:57 Eos % (Auto) 1.4 % (0.0-4.3) 03/10/22 03:57 Baso % (Auto) 0.4 % (0.0-1.8) 03/10/22 03:57 Lymph # (Auto) 1.3 K/mm3 (1.2-5.4) 03/10/22 03:57 [place] # (Auto) 1.3 K/mm3 (0.0-0.8) H 03/10/22 03:57 Eos # (Auto) 0.1 K/mm3 (0.0-0.4) 03/10/22 03:57 Baso # (Auto) 0.0 K/mm3 (0.0-0.1) 03/10/22 03:57 Add Manual Diff Complete 03/03/22 03:54 Total Counted 100 03/03/22 03:54 Seg Neutrophils % 72.4 % (40.0-70.0) H 03/10/22 03:57 Seg Neuts % (Manual) 95.0 % (40.0-70.0) H 03/03/22 03:54 Band Neutrophils % 0 % 03/03/22 03:54 Lymphocytes % (Manual) 3.0 % (13.4-35.0) L 03/03/22 03:54 Reactive Lymphs % (Man) 0 % 03/03/22 03:54 Monocytes % (Manual) 2.0 % (0.0-7.3) 03/03/22 03:54 Eosinophils % (Manual) 0 % (0.0-4.3) 03/03/22 03:54 Basophils % (Manual) 0 % (0.0-1.8) 03/03/22 03:54 Metamyelocytes % 0 % 03/03/22 03:54 Myelocytes % 0 % 03/03/22 03:54 Promyelocytes % 0 % 03/03/22 03:54 Blast Cells % 0 % 03/03/22 03:54 Nucleated RBC % Not Reportable 03/03/22 03:54 Seg Neutrophils # 7.4 K/mm3 (1.8-7.7) 03/10/22 03:57 Seg Neutrophils # Man 18.5 K/mm3 (1.8-7.7) H 03/03/22 03:54 Band Neutrophils # 0.0 K/mm3 03/03/22 03:54 Lymphocytes # (Manual) 0.6 K/mm3 (1.2-5.4) L 03/03/22 03:54 Abs React Lymphs (Man) 0.0 K/mm3 03/03/22 03:54 Monocytes # (Manual) 0.4 K/mm3 (0.0-0.8) 03/03/22 03:54 Eosinophils # (Manual) 0.0 K/mm3 (0.0-0.4) 03/03/22 03:54 Basophils # (Manual) 0.0 K/mm3 (0.0-0.1) 03/03/22 03:54 Metamyelocytes # 0.0 K/mm3 03/03/22 03:54 Myelocytes # 0.0 K/mm3 03/03/22 03:54 Promyelocytes # 0.0 K/mm3 03/03/22 03:54 Blast Cells # 0.0 K/mm3 03/03/22 03:54 WBC Morphology Not Reportable 03/03/22 03:54 Hypersegmented Neuts Not Reportable 03/03/22 03:54 Hyposegmented Neuts Not Reportable 03/03/22 03:54 Hypogranular Neuts Not Reportable 03/03/22 03:54 Smudge Cells Not Reportable 03/03/22 03:54 Toxic Granulation Not Reportable 03/03/22 03:54 Toxic Vacuolation Not Reportable 03/03/22 03:54 Dohle Bodies Not Reportable 03/03/22 03:54 Pelger-Huet Anomaly Not Reportable 03/03/22 03:54 Lakshmi Rods Not Reportable 03/03/22 03:54 Platelet Estimate Consistent w auto 03/03/22 03:54 Clumped Platelets Not Reportable 03/03/22 03:54 Plt Clumps, EDTA Not Reportable 03/03/22 03:54 Large Platelets Not Reportable 03/03/22 03:54 Giant Platelets Not Reportable 03/03/22 03:54 Platelet Satelliting Not Reportable 03/03/22 03:54 Plt Morphology Comment Not Reportable 03/03/22 03:54 RBC Morphology Not Reportable 03/03/22 03:54 Dimorphic RBCs Not Reportable 03/03/22 03:54 Polychromasia Not Reportable 03/03/22 03:54 Hypochromasia Not Reportable 03/03/22 03:54 Poikilocytosis Not Reportable 03/03/22 03:54 Anisocytosis 1+ 03/03/22 03:54 Microcytosis Not Reportable 03/03/22 03:54 Macrocytosis Not Reportable 03/03/22 03:54 Spherocytes Not Reportable 03/03/22 03:54 Pappenheimer Bodies Not Reportable 03/03/22 03:54 Sickle Cells Not Reportable 03/03/22 03:54 Target Cells Not Reportable 03/03/22 03:54 Tear Drop Cells Not Reportable 03/03/22 03:54 Ovalocytes Not Reportable 03/03/22 03:54 Helmet Cells Not Reportable 03/03/22 03:54 [place] Bodies Not Reportable 03/03/22 03:54 [place] Rings Not Reportable 03/03/22 03:54 [place] Cells Not Reportable 03/03/22 03:54 Bite Cells Not Reportable 03/03/22 03:54 Crenated Cell Not Reportable 03/03/22 03:54 Elliptocytes Not Reportable 03/03/22 03:54 Acanthocytes (Spur) Not Reportable 03/03/22 03:54 Rouleaux Not Reportable 03/03/22 03:54 Hemoglobin C Crystals Not Reportable 03/03/22 03:54 Schistocytes Not Reportable 03/03/22 03:54 Malaria parasites Not Reportable 03/03/22 03:54 Cash Bodies Not Reportable 03/03/22 03:54 Hem Pathologist Commnt No 03/03/22 03:54 PT 16.2 Sec. (12.2-14.9) H 03/11/22 04:02 INR 1.16 (0.87-1.13) H 03/11/22 04:02 ABG pH 7.476 pH Units (7.350-7.450) H 03/11/22 05:10 ABG pCO2 41.2 mm Hg 03/11/22 05:10 ABG pO2 84.0 mm Hg (80.0-90.0) 03/11/22 05:10 ABG HCO3 29.7 mmol/L (20.0-26.0) H 03/11/22 05:10 ABG O2 Saturation 97.1 % (95.0-99.0) 03/11/22 05:10 ABG O2 Content 12.3 (0.0-44) 03/11/22 05:10 ABG Base Excess 5.7 mmol/L (-2.0-3.0) H 03/11/22 05:10 ABG Hemoglobin 9.1 gm/dl (14.0-18.0) L 03/11/22 05:10 ABG Carboxyhemoglobin 1.7 % (0.0-5.0) 03/11/22 05:10 ABG Methemoglobin 0.5 % (0.0-1.5) 03/11/22 05:10 Oxyhemoglobin 95.0 % (95.0-99.0) 03/11/22 05:10 FiO2 30 % 03/11/22 05:10 Sodium 140 mmol/L (137-145) 03/20/22 04:09 Potassium 4.4 mmol/L (3.6-5.0) 03/20/22 04:09 Chloride 101.7 mmol/L (98-107) 03/20/22 04:09 Carbon Dioxide 30 mmol/L (22-30) 03/20/22 04:09 Anion Gap 13 mmol/L 03/20/22 04:09 BUN 18 mg/dL (9-20) 03/20/22 04:09 Creatinine 0.6 mg/dL (0.8-1.3) L 03/20/22 04:09 Estimated GFR > 60 ml/min 03/20/22 04:09 BUN/Creatinine Ratio 30 % 03/20/22 04:09 Glucose 94 mg/dL (75-100) 03/20/22 04:09 POC Glucose 105 mg/dL (70-105) 03/20/22 06:27 Lactic Acid 1.20 mmol/L (0.7-2.0) 02/18/22 21:02 Calcium 8.2 mg/dL (8.4-10.2) L 03/20/22 04:09 Phosphorus 3.50 mg/dL (2.5-4.5) 03/20/22 04:09 Magnesium 2.00 mg/dL (1.7-2.3) 03/20/22 04:09 Total Bilirubin 0.30 mg/dL (0.1-1.2) 03/10/22 03:57 AST 17 units/L (5-40) 03/10/22 03:57 ALT 18 units/L (7-56) 03/10/22 03:57 Alkaline Phosphatase 89 units/L (35-129) 03/10/22 03:57 Ammonia 14.0 umol/L (25-60) L 02/18/22 23:22 Troponin T < 0.010 ng/mL (0.00-0.029) 02/18/22 21:02 Total Protein 6.6 g/dL (6.3-8.2) 03/10/22 03:57 Albumin 1.9 g/dL (3.9-5) L 03/10/22 03:57 Albumin/Globulin Ratio 0.4 % 03/10/22 03:57 Urine Color Dark yellow (Yellow) 02/18/22 Unknown Urine Turbidity Clear (Clear) 02/18/22 Unknown Urine pH 7.0 (5.0-7.0) 02/18/22 Unknown Ur Specific [place] 1.015 (1.003-1.030) 02/18/22 Unknown Urine Protein <15 mg/dl mg/dL (Negative) 02/18/22 Unknown Urine Glucose (UA) Negative mg/dL (Negative) 02/18/22 Unknown Urine Ketones Negative mg/dL (Negative) 02/18/22 Unknown Urine Blood Trace (Negative) 02/18/22 Unknown Urine Nitrite Negative (Negative) 02/18/22 Unknown Urine Bilirubin Negative (Negative) 02/18/22 Unknown Urine Urobilinogen < 2.0 mg/dL (<2.0) 02/18/22 Unknown Ur Leukocyte Esterase Negative (Negative) 02/18/22 Unknown Urine WBC (Auto) 2.0 /HPF (0.0-6.0) 02/18/22 Unknown Urine RBC (Auto) 9.0 /HPF (0.0-6.0) 02/18/22 Unknown Urine Mucus Few /HPF 02/18/22 Unknown Urine Opiates Screen Negative 02/18/22 Unknown Urine Methadone Screen Negative 02/18/22 Unknown Ur Barbiturates Screen Negative 02/18/22 Unknown Ur Phencyclidine Scrn Negative 02/18/22 Unknown Ur Amphetamines Screen Negative 02/18/22 Unknown U Benzodiazepines Scrn Negative 02/18/22 Unknown Urine Cocaine Screen Negative 02/18/22 Unknown U Marijuana (THC) Screen Negative 02/18/22 Unknown Drugs of Abuse Note Disclamer 02/18/22 Unknown Plasma/Serum Alcohol < 0.01 % (0-0.07) 02/18/22 21:02 Summers/IV: Voiding Method Indwelling Catheter Active Medications - Current Medications Current Medications: Generic Name Dose Route Start Last Admin Trade Name Freq PRN Reason Stop Dose Admin Acetaminophen 650 mg 03/03/22 09:00 Acetaminophen 325 Mg/10.15 Ml Oral Liqd Unit Dose FEEDTUBE Q4H PRN Pain, Mild (1-3); TEMP > 100.4 Albuterol 2.5 mg 03/12/22 20:00 03/20/22 08:17 Albuterol 2.5 Mg/3 Ml Nebu IH 2.5 mg Q6HRT LAZARUS Administration Famotidine 20 mg 02/25/22 10:00 03/20/22 09:00 Famotidine 20 Mg Tab FEEDTUBE 20 mg BID LAZARUS Administration Heparin Sodium (Porcine) 5,000 unit 02/19/22 06:00 03/20/22 06:25 Heparin 5,000 Unit/1 Ml Vial SUB-Q 5,000 unit Q8HR LAZARUS Administration Hydrophilic Ointment 1 applic 02/24/22 15:05 Lip Therapy Vaseline TP Q2HR PRN Dry Lips Levetiracetam 500 mg 02/25/22 22:00 03/20/22 09:00 Levetiracetam 500 Mg/5 Ml Oral Liqd FEEDTUBE 500 mg BID LAZARUS Administration Levothyroxine Sodium 25 mcg 02/26/22 06:00 03/20/22 06:25 Levothyroxine 25 Mcg Tab FEEDTUBE 25 mcg QAM@0600 LAZARUS Administration Magnesium Hydroxide 30 ml 02/19/22 02:02 Magnesium Hydroxide (Mom) Oral Liqd Udc PO Q4H PRN Constipation Midodrine 2.5 mg 03/19/22 12:00 03/20/22 08:53 Midodrine 2.5 Mg Tab FEEDTUBE 2.5 mg TID@0800,1200,1600 LAZARUS Administration Multi-Ingred Cream/Lotion/Oil/Oint 1 applic 02/24/22 15:05 Mineral Oil/Petrolatum, White Ophth Oint 3.5 Gm OU Q4HR PRN Dry Eye(s) Ondansetron HCl 4 mg 02/19/22 02:02 Ondansetron 4 Mg/2 Ml Inj IV Q8H PRN Nausea And Vomiting Pravastatin Sodium 40 mg 02/25/22 22:00 03/19/22 22:16 Pravastatin 40 Mg Tab FEEDTUBE 40 mg QHS LAZARUS Administration Senna/Docusate Sodium 1 tab 02/24/22 22:00 03/20/22 09:00 Sennosides/Docusate Sodium 8.6/50 Mg Tab FEEDTUBE 1 tab BID LAZARUS Administration Sodium Chloride 10 ml 02/19/22 10:00 03/20/22 09:00 Sodium Chloride 0.9% 10 Ml Flush Syringe IV 10 ml BID LAZARUS Administration Sodium Chloride 10 ml 02/19/22 02:02 03/03/22 14:21 Sodium Chloride 0.9% 10 Ml Flush Syringe IV 10 ml PRN PRN Administration LINE FLUSH Nutrition/Malnutrition Assess - Dietary Evaluation Nutrition/Malnutrition Findings: Nutrition Notes Start: 02/19/22 14:29 Freq: Status: Active Protocol: Document 03/14/22 14:33 IVAN (Rec: 03/14/22 14:36 IVAN [id number]) Nutrition Notes Initial or Follow up Reassessment Current Diagnosis Hypertension,Respiratory Failure,Hyperlipidemia Other Pertinent Diagnosis Asp pneu, acute encephalopathy , seizure d/o, partial blindness Current Diet TF - Vital AF 1.2 at 50ml/hr Labs/Tests Reviewed Pertinent Medications Reviewed Height 5 ft 3 in Weight 63.2 kg [place] Body Weight (kg) 56.36 BMI 24.7 Weight Status Appropriate Subjective/Other Information Pt remains on vent support; no trach or PEG placed yet. Pt continues to tolerate TF. BM x 1 today. Percent of energy/protein needs met: 90% energy 100% pro Burn Absent Trauma Absent #1 Nutrition Diagnosis Inadequate oral intake Diagnosis Progress(for reassessment Continues documentation) Is patient on ventilator? Yes Is Patient Ambulatory and/or Out of Bed No REE-([facility]-confined to bed) [phone] Calculation Used for Recommendations [place] Additional Notes Pro needs 1.2-2g/k-126g/ day Fluid needs 1ml/kcal Nutrition Intervention Nutrition Support: Continue Vital AF 1.2 at 50ml/ hr with 75ml water flush q4h. Kcal 1,440 Protein (gm) 90 Carbohydrates (gm) 133 Fat (gm) 65 Fluid (mL) 973 Fiber (gm) 6 Goal #1 TF tolerance Goal #2 TF to meet at least 75% energy and pro needs Follow-Up By: 03/21/22 Additional Comments F/U: stable TF, trach/PEG placement, vent status <JOAQUIN ROBIN - Last Filed: 03/20/22 19:44> Assessment and Plan Assessment and plan: I saw and evaluated the patient. I agree with the findings and the plan of care as documented in the Nurse Practitioner's~note, with the following corrections and additions. Hospitalist Physical - Constitutional Vitals: Temp Pulse Resp BP Pulse Ox 98.7 F 76 16 98/64 100 03/20/22 19:30 03/20/22 19:14 03/20/22 19:14 03/20/22 19:09 03/20/22 19:09 HEART Score - HEART Score Troponin: Troponin T < 0.010 ng/mL (0.00-0.029) 02/18/22 21:02 Results - Labs CBC & Chem 7: 03/20/22 04:09 03/20/22 04:09 Labs: Laboratory Last Values WBC 6.0 K/mm3 (4.5-11.0) 03/20/22 04:09 RBC 2.90 M/mm3 (3.65-5.03) L 03/20/22 04:09 Hgb 9.6 gm/dl (11.8-15.2) L 03/20/22 04:09 Hct 28.9 % (35.5-45.6) L 03/20/22 04:09 MCV 100 fl (84-94) H 03/20/22 04:09 MCH 33 pg (28-32) H 03/20/22 04:09 MCHC 33 % (32-34) 03/20/22 04:09 RDW 17.4 % (13.2-15.2) H 03/20/22 04:09 Plt Count 339 K/mm3 (140-440) 03/20/22 04:09 Lymph % (Auto) 13.3 % (13.4-35.0) L 03/10/22 03:57 [place] % (Auto) 12.5 % (0.0-7.3) H 03/10/22 03:57 Eos % (Auto) 1.4 % (0.0-4.3) 03/10/22 03:57 Baso % (Auto) 0.4 % (0.0-1.8) 03/10/22 03:57 Lymph # (Auto) 1.3 K/mm3 (1.2-5.4) 03/10/22 03:57 [place] # (Auto) 1.3 K/mm3 (0.0-0.8) H 03/10/22 03:57 Eos # (Auto) 0.1 K/mm3 (0.0-0.4) 03/10/22 03:57 Baso # (Auto) 0.0 K/mm3 (0.0-0.1) 03/10/22 03:57 Add Manual Diff Complete 03/03/22 03:54 Total Counted 100 03/03/22 03:54 Seg Neutrophils % 72.4 % (40.0-70.0) H 03/10/22 03:57 Seg Neuts % (Manual) 95.0 % (40.0-70.0) H 03/03/22 03:54 Band Neutrophils % 0 % 03/03/22 03:54 Lymphocytes % (Manual) 3.0 % (13.4-35.0) L 03/03/22 03:54 Reactive Lymphs % (Man) 0 % 03/03/22 03:54 Monocytes % (Manual) 2.0 % (0.0-7.3) 03/03/22 03:54 Eosinophils % (Manual) 0 % (0.0-4.3) 03/03/22 03:54 Basophils % (Manual) 0 % (0.0-1.8) 03/03/22 03:54 Metamyelocytes % 0 % 03/03/22 03:54 Myelocytes % 0 % 03/03/22 03:54 Promyelocytes % 0 % 03/03/22 03:54 Blast Cells % 0 % 03/03/22 03:54 Nucleated RBC % Not Reportable 03/03/22 03:54 Seg Neutrophils # 7.4 K/mm3 (1.8-7.7) 03/10/22 03:57 Seg Neutrophils # Man 18.5 K/mm3 (1.8-7.7) H 03/03/22 03:54 Band Neutrophils # 0.0 K/mm3 03/03/22 03:54 Lymphocytes # (Manual) 0.6 K/mm3 (1.2-5.4) L 03/03/22 03:54 Abs React Lymphs (Man) 0.0 K/mm3 03/03/22 03:54 Monocytes # (Manual) 0.4 K/mm3 (0.0-0.8) 03/03/22 03:54 Eosinophils # (Manual) 0.0 K/mm3 (0.0-0.4) 03/03/22 03:54 Basophils # (Manual) 0.0 K/mm3 (0.0-0.1) 03/03/22 03:54 Metamyelocytes # 0.0 K/mm3 03/03/22 03:54 Myelocytes # 0.0 K/mm3 03/03/22 03:54 Promyelocytes # 0.0 K/mm3 03/03/22 03:54 Blast Cells # 0.0 K/mm3 03/03/22 03:54 WBC Morphology Not Reportable 03/03/22 03:54 Hypersegmented Neuts Not Reportable 03/03/22 03:54 Hyposegmented Neuts Not Reportable 03/03/22 03:54 Hypogranular Neuts Not Reportable 03/03/22 03:54 Smudge Cells Not Reportable 03/03/22 03:54 Toxic Granulation Not Reportable 03/03/22 03:54 Toxic Vacuolation Not Reportable 03/03/22 03:54 Dohle Bodies Not Reportable 03/03/22 03:54 Pelger-Huet Anomaly Not Reportable 03/03/22 03:54 Lakshmi Rods Not Reportable 03/03/22 03:54 Platelet Estimate Consistent w auto 03/03/22 03:54 Clumped Platelets Not Reportable 03/03/22 03:54 Plt Clumps, EDTA Not Reportable 03/03/22 03:54 Large Platelets Not Reportable 03/03/22 03:54 Giant Platelets Not Reportable 03/03/22 03:54 Platelet Satelliting Not Reportable 03/03/22 03:54 Plt Morphology Comment Not Reportable 03/03/22 03:54 RBC Morphology Not Reportable 03/03/22 03:54 Dimorphic RBCs Not Reportable 03/03/22 03:54 Polychromasia Not Reportable 03/03/22 03:54 Hypochromasia Not Reportable 03/03/22 03:54 Poikilocytosis Not Reportable 03/03/22 03:54 Anisocytosis 1+ 03/03/22 03:54 Microcytosis Not Reportable 03/03/22 03:54 Macrocytosis Not Reportable 03/03/22 03:54 Spherocytes Not Reportable 03/03/22 03:54 Pappenheimer Bodies Not Reportable 03/03/22 03:54 Sickle Cells Not Reportable 03/03/22 03:54 Target Cells Not Reportable 03/03/22 03:54 Tear Drop Cells Not Reportable 03/03/22 03:54 Ovalocytes Not Reportable 03/03/22 03:54 Helmet Cells Not Reportable 03/03/22 03:54 [place] Bodies Not Reportable 03/03/22 03:54 [place] Rings Not Reportable 03/03/22 03:54 [place] Cells Not Reportable 03/03/22 03:54 Bite Cells Not Reportable 03/03/22 03:54 Crenated Cell Not Reportable 03/03/22 03:54 Elliptocytes Not Reportable 03/03/22 03:54 Acanthocytes (Spur) Not Reportable 03/03/22 03:54 Rouleaux Not Reportable 03/03/22 03:54 Hemoglobin C Crystals Not Reportable 03/03/22 03:54 Schistocytes Not Reportable 03/03/22 03:54 Malaria parasites Not Reportable 03/03/22 03:54 Cash Bodies Not Reportable 03/03/22 03:54 Hem Pathologist Commnt No 03/03/22 03:54 PT 16.2 Sec. (12.2-14.9) H 03/11/22 04:02 INR 1.16 (0.87-1.13) H 03/11/22 04:02 ABG pH 7.476 pH Units (7.350-7.450) H 03/11/22 05:10 ABG pCO2 41.2 mm Hg 03/11/22 05:10 ABG pO2 84.0 mm Hg (80.0-90.0) 03/11/22 05:10 ABG HCO3 29.7 mmol/L (20.0-26.0) H 03/11/22 05:10 ABG O2 Saturation 97.1 % (95.0-99.0) 03/11/22 05:10 ABG O2 Content 12.3 (0.0-44) 03/11/22 05:10 ABG Base Excess 5.7 mmol/L (-2.0-3.0) H 03/11/22 05:10 ABG Hemoglobin 9.1 gm/dl (14.0-18.0) L 03/11/22 05:10 ABG Carboxyhemoglobin 1.7 % (0.0-5.0) 03/11/22 05:10 ABG Methemoglobin 0.5 % (0.0-1.5) 03/11/22 05:10 Oxyhemoglobin 95.0 % (95.0-99.0) 03/11/22 05:10 FiO2 30 % 03/11/22 05:10 Sodium 140 mmol/L (137-145) 03/20/22 04:09 Potassium 4.4 mmol/L (3.6-5.0) 03/20/22 04:09 Chloride 101.7 mmol/L (98-107) 03/20/22 04:09 Carbon Dioxide 30 mmol/L (22-30) 03/20/22 04:09 Anion Gap 13 mmol/L 03/20/22 04:09 BUN 18 mg/dL (9-20) 03/20/22 04:09 Creatinine 0.6 mg/dL (0.8-1.3) L 03/20/22 04:09 Estimated GFR > 60 ml/min 03/20/22 04:09 BUN/Creatinine Ratio 30 % 03/20/22 04:09 Glucose 94 mg/dL (75-100) 03/20/22 04:09 POC Glucose 110 mg/dL (70-105) H 03/20/22 17:22 Lactic Acid 1.20 mmol/L (0.7-2.0) 02/18/22 21:02 Calcium 8.2 mg/dL (8.4-10.2) L 03/20/22 04:09 Phosphorus 3.50 mg/dL (2.5-4.5) 03/20/22 04:09 Magnesium 2.00 mg/dL (1.7-2.3) 03/20/22 04:09 Total Bilirubin 0.30 mg/dL (0.1-1.2) 03/10/22 03:57 AST 17 units/L (5-40) 03/10/22 03:57 ALT 18 units/L (7-56) 03/10/22 03:57 Alkaline Phosphatase 89 units/L (35-129) 03/10/22 03:57 Ammonia 14.0 umol/L (25-60) L 02/18/22 23:22 Troponin T < 0.010 ng/mL (0.00-0.029) 02/18/22 21:02 Total Protein 6.6 g/dL (6.3-8.2) 03/10/22 03:57 Albumin 1.9 g/dL (3.9-5) L 03/10/22 03:57 Albumin/Globulin Ratio 0.4 % 03/10/22 03:57 Urine Color Dark yellow (Yellow) 02/18/22 Unknown Urine Turbidity Clear (Clear) 02/18/22 Unknown Urine pH 7.0 (5.0-7.0) 02/18/22 Unknown Ur Specific [place] 1.015 (1.003-1.030) 02/18/22 Unknown Urine Protein <15 mg/dl mg/dL (Negative) 02/18/22 Unknown Urine Glucose (UA) Negative mg/dL (Negative) 02/18/22 Unknown Urine Ketones Negative mg/dL (Negative) 02/18/22 Unknown Urine Blood Trace (Negative) 02/18/22 Unknown Urine Nitrite Negative (Negative) 02/18/22 Unknown Urine Bilirubin Negative (Negative) 02/18/22 Unknown Urine Urobilinogen < 2.0 mg/dL (<2.0) 02/18/22 Unknown Ur Leukocyte Esterase Negative (Negative) 02/18/22 Unknown Urine WBC (Auto) 2.0 /HPF (0.0-6.0) 02/18/22 Unknown Urine RBC (Auto) 9.0 /HPF (0.0-6.0) 02/18/22 Unknown Urine Mucus Few /HPF 02/18/22 Unknown Urine Opiates Screen Negative 02/18/22 Unknown Urine Methadone Screen Negative 02/18/22 Unknown Ur Barbiturates Screen Negative 02/18/22 Unknown Ur Phencyclidine Scrn Negative 02/18/22 Unknown Ur Amphetamines Screen Negative 02/18/22 Unknown U Benzodiazepines Scrn Negative 02/18/22 Unknown Urine Cocaine Screen Negative 02/18/22 Unknown U Marijuana (THC) Screen Negative 02/18/22 Unknown Drugs of Abuse Note Disclamer 02/18/22 Unknown Plasma/Serum Alcohol < 0.01 % (0-0.07) 02/18/22 21:02 Summers/IV: Voiding Method Indwelling Catheter Active Medications - Current Medications Current Medications: Generic Name Dose Route Start Last Admin Trade Name Freq PRN Reason Stop Dose Admin Acetaminophen 650 mg 03/03/22 09:00 Acetaminophen 325 Mg/10.15 Ml Oral Liqd Unit Dose FEEDTUBE Q4H PRN Pain, Mild (1-3); TEMP > 100.4 Albuterol 2.5 mg 03/12/22 20:00 03/20/22 19:08 Albuterol 2.5 Mg/3 Ml Nebu IH 2.5 mg Q6HRT LAZARUS Administration Famotidine 20 mg 02/25/22 10:00 03/20/22 09:00 Famotidine 20 Mg Tab FEEDTUBE 20 mg BID LAZARUS Administration Heparin Sodium (Porcine) 5,000 unit 02/19/22 06:00 03/20/22 13:45 Heparin 5,000 Unit/1 Ml Vial SUB-Q 5,000 unit Q8HR LAZARUS Administration Hydrophilic Ointment 1 applic 02/24/22 15:05 Lip Therapy Vaseline TP Q2HR PRN Dry Lips Levetiracetam 500 mg 02/25/22 22:00 03/20/22 09:00 Levetiracetam 500 Mg/5 Ml Oral Liqd FEEDTUBE 500 mg BID LAZARUS Administration Levothyroxine Sodium 25 mcg 02/26/22 06:00 03/20/22 06:25 Levothyroxine 25 Mcg Tab FEEDTUBE 25 mcg QAM@0600 LAZARUS Administration Magnesium Hydroxide 30 ml 02/19/22 02:02 Magnesium Hydroxide (Mom) Oral Liqd Udc PO Q4H PRN Constipation Midodrine 2.5 mg 03/19/22 12:00 03/20/22 16:05 Midodrine 2.5 Mg Tab FEEDTUBE 2.5 mg TID@0800,1200,1600 LAZARUS Administration Multi-Ingred Cream/Lotion/Oil/Oint 1 applic 02/24/22 15:05 Mineral Oil/Petrolatum, White Ophth Oint 3.5 Gm OU Q4HR PRN Dry Eye(s) Ondansetron HCl 4 mg 02/19/22 02:02 Ondansetron 4 Mg/2 Ml Inj IV Q8H PRN Nausea And Vomiting Pravastatin Sodium 40 mg 02/25/22 22:00 03/19/22 22:16 Pravastatin 40 Mg Tab FEEDTUBE 40 mg QHS LAZARUS Administration Senna/Docusate Sodium 1 tab 02/24/22 22:00 03/20/22 09:00 Sennosides/Docusate Sodium 8.6/50 Mg Tab FEEDTUBE 1 tab BID LAZARUS Administration Sodium Chloride 10 ml 02/19/22 10:00 03/20/22 09:00 Sodium Chloride 0.9% 10 Ml Flush Syringe IV 10 ml BID LAZARUS Administration Sodium Chloride 10 ml 02/19/22 02:02 03/03/22 14:21 Sodium Chloride 0.9% 10 Ml Flush Syringe IV 10 ml PRN PRN Administration LINE FLUSH Nutrition/Malnutrition Assess - Dietary Evaluation Nutrition/Malnutrition Findings: Nutrition Notes Start: 02/19/22 14:29 Freq: Status: Active Protocol: Document 03/14/22 14:33 IVAN (Rec: 03/14/22 14:36 MOISAI [id number]) Nutrition Notes Initial or Follow up Reassessment Current Diagnosis Hypertension,Respiratory Failure,Hyperlipidemia Other Pertinent Diagnosis Asp pneu, acute encephalopathy , seizure d/o, partial blindness Current Diet TF - Vital AF 1.2 at 50ml/hr Labs/Tests Reviewed Pertinent Medications Reviewed Height 5 ft 3 in Weight 63.2 kg [place] Body Weight (kg) 56.36 BMI 24.7 Weight Status Appropriate Subjective/Other Information Pt remains on vent support; no trach or PEG placed yet. Pt continues to tolerate TF. BM x 1 today. Percent of energy/protein needs met: 90% energy 100% pro Burn Absent Trauma Absent #1 Nutrition Diagnosis Inadequate oral intake Diagnosis Progress(for reassessment Continues documentation) Is patient on ventilator? Yes Is Patient Ambulatory and/or Out of Bed No REE-([place]-confined to bed) [phone] Calculation Used for Recommendations [facility] Additional Notes Pro needs 1.2-2g/k-126g/ day Fluid needs 1ml/kcal Nutrition Intervention Nutrition Support: Continue Vital AF 1.2 at 50ml/ hr with 75ml water flush q4h. Kcal 1,440 Protein (gm) 90 Carbohydrates (gm) 133 Fat (gm) 65 Fluid (mL) 973 Fiber (gm) 6 Goal #1 TF tolerance Goal #2 TF to meet at least 75% energy and pro needs Follow-Up By: 03/21/22 Additional Comments F/U: stable TF, trach/PEG placement, vent status
[2022-03-20] MEDS: PRAVASTATIN 40 MG TAB FEEDTUBE SCH (21:06)
[2022-03-21] MEDS: ALBUTEROL 2.5 MG/3 ML NEBU IH SCH ×4 (02:42→19:41)
[2022-03-21] MEDS: LEVOTHYROXINE 25 MCG TAB FEEDTUBE SCH (06:39)
[2022-03-21] MEDS: HEPARIN 5,000 UNIT/1 ML VIAL SUB-Q SCH ×3 (06:39→21:38)
[2022-03-21] MEDS: MIDODRINE 2.5 MG TAB FEEDTUBE SCH ×3 (08:18→16:22)
[2022-03-21] MEDS: FAMOTIDINE 20 MG TAB FEEDTUBE SCH ×2 (09:13→21:38)
[2022-03-21] MEDS: SENNOSIDES/DOCUSATE SODIUM 8.6/50 MG TAB FEEDTUBE SCH ×2 (09:13→21:38)
[2022-03-21] MEDS: levETIRAcetam 500 MG/5 ML ORAL LIQD FEEDTUBE SCH ×2 (09:13→21:38)
--- NOTE | 2022-03-21 12:30 | Progress Note ---
<KEATON GOLD - Last Filed: 03/21/22 17:35> Assessment and Plan Assessment and plan: This is a 51-year-old male with HTN, seizure disorder, Down syndrome, HLD, partial blindness admitted with aspiration pneumonia, probable bronchogenic carcinoma, acute hypoxic respiratory failure and acute encephalopathy Hospital course to date: 02/19/2022. Consult pulmonary for further evaluation and possible bronchoscopy. I suspect patient has component of aspiration pneumonia as well. We will obtain a speech therapy evaluation for swallowing and start empiric antibiotics. Continue O2 supplementation to maintain sats greater than 92%. 02/20/2022. Pulmonary feels that the abnormality seen on CT scan is highly unlikely for a mass given negative chest x-ray 1 month ago and no risk factors. Etiology is likely secondary to aspiration from possibly a foreign body most likely food with atelectasis of the right lower lobe. Bronchoscopy is needed in the case to evaluate to see if lung mass is there vs foreign body, but at this time not able to do because no identifiable person that is able to give consent. Continue aspiration precautions and continue speech therapy evaluation for swallowing. Keep n.p.o. for now 02/21/2022. Patient remains NPO. Consider DHT placement. Follow-up with speech therapy evaluation. Pulmonology to consider bronchoscopy if able to obtain consent. Continue IV antibiotics for aspiration pneumonia 02/22/2022. Patient remains NPO. Consider DHT placement. Follow-up with speech therapy evaluation. Pulmonology to consider bronchoscopy if able to obtain consent. Continue IV antibiotics for aspiration pneumonia 02/23/2022. DHT placed yesterday. TF initiated for nutritional support. Patient currently with strict NPO. Aspiration precautions. Pulmonology to consider bronchoscopy if able to obtain consent. Continue IV antibiotics for aspiration pneumonia 02/24: Patient was transferred to the ICU for further monitoring. This morning patient remained on high flow nasal cannula on 40 L/100% and despite repeated nasotracheal suctioning patient SPO2 remained in the 80s. Patient was placed on nonrebreather and SPO2 increased to upper 80s. Patient was subsequently intubated by anesthesia. Started on sedation. 02/25: Patient remains sedated on fentanyl, potassium and magnesium repleted. IV fluids and amlodipine discontinued. Possible bronchoscopy tomorrow. 02/26: Patient had a bronchoscopy today which showed mucus and no endobronchial lesions or masses. FiO2 was increased to 100 during and postprocedure weaning as tolerated. Repeat CXR is much improved after bronc. Given 1 L LR bolus due to hypotension. No acute events reported overnight. 02/27: Decreased PEEP, will repeat CT of chest. no acute changes overnight. 02/28: Patient was extubated today however had to be be intubated shortly after. Patient ETT looked mispositioned on x-ray and Dr. Alonzo did do a bedside bronc. Patient was briefly hypotensive and on Levophed postintubation however Levophed was quickly titrated off and patient did not require central line. No acute events reported overnight. Will obtain CT neck d/t difficulty intubating. Ethi committee consulted. 03/04: Overnight patient was hypotensive and started on IVF. Patient started on steroids as no air leak noted and hypotension and given 2 L LR 03/05: Overnight patient received bolus per RN report, no orders seen. Continue supportive care 03/03: SB on the monitor, HR as low as 37, VSS. Will continue to monitor for now. [facility]waiting [facility] desicion [facility] for possible trach and PEG. Continue daily air leak per [facility] 03/04: MAIDA overnight. Remains stable on the vent. Awaiting on desicion from [facility] for possible trach and PEG. Continue current supportive measures 03/05: MAIDA overnight. Awaiting on desicion from [facility] for possible trach and PEG. Midodrine held yesterday, HR improved. Continue current supportive measures. Daily PSV trial as tolerated per [facility] 03/06: Remains stable on the vent. Continue current supportive measures, daily PSV trial per [facility]. Awaiting on desicion for possible trach and PEG. 03/07: MAIDA overnight, remains stable. Continue daily PSV trial as tolerated. Awaiting on desicion for possible trach and PEG. 03/08: Patient failed PSV trial this am due to tachycardia and increase RR. Continue supportive measures and daily PSV trial as tolerated. Possible discussion with [facility] and [facility] on Thursday in regards to medical necessity, may need to consider two physician consent if no one is able to claim responsibility for this patient. 03/09: MAIDA overnight. Continue current supportive measures and daily PSV trail as tolerated. Awaiting on desicion for possible trach and PEG, discussion with Ethics possibly tomorrow per [facility]. 03/10: no acute events overnight, PSV today. replete potassium. 03/11: No acute events reported overnight, patient failed PSV yesterday and will repeat today. Hospital to start guardianship process. 03/12: No acute events overnight. PSV today 03/13: Patient given 500ml normal saline and started on midodrine for h ypotension. No acute events reported overnight. Failed pressure support again this morning. 03/14: No acute events reported overnight, patient blood pressure seems better therefore midodrine discontinued. RT placed on CPAP need lasted for couple hours. Will remove summers 03/15: Midodrine was restarted yesterday evening for hypotension, Summers catheter not removed due to sacral ulcer and history of retention. Unable to crush Flomax and patient will not tolerate doxazosin given hypotension. Given LR bolus this morning. If blood pressure continues to be borderline after bolus, we will adjust management as needed. CPAP as tolerated 03/16: No acute events reported overnight, patient placed on CPAP trial this morning which he failed. 03/17: RT attempted PSV which he failed again today. No acute events reported overnight. 03/18: Awaiting ethic committee's decision on Trach/PEG. Patient tolerated PSV trial for over 3 hrs today, continue daily PSV trial as tolerated. 03/19: MAIDA overnight. Continue current supportive measures. Daily PSV trial as tolerated. Awaiting on desicion for possible trach and PEG. 03/20: MAIDA overnight. Daily PSV trial as tolerated. Awaiting decision on guardian ship for trach and PEG. 03/21: Remains stable, condition unchanged. Continue supportive measures and daily PSV trial as tolerated. Neuro: Acute encephalopathy, h/o seizure disorder, Down syndrome, partial blindness -Intubated and off sedation -Reorientation as needed -Maintain sleep-wake cycle -aspiration/seizure precautions -As needed analgesia -CT head showed no acute abnormality -Continue Keppra Cardiac: Hypotension, h/o HTN, HLD -Cardiology consulted, appreciate recommendations -Blood pressure monitoring per protocol -d/c amlodipine -On PO Midodrine for hypotension Respiratory: Acute hypoxic respiratory failure, r/o bronchogenic carcinoma -[facility] consulted, appreciate recommendations -Intubated on 02/24 with a 8.0 at 23 at the lips but extubated 02/28 -reintubated 02/28 with 8.0 OETT -Vent settings: AC rate 14, TV 360, PEEP 6, FO2 30% -See RT notes for titration -VAP bundle -SPO2 monitoring -02/18 CTA chest showed no evidence of pulmonary embolism, suspected bronchogenic carcinoma with associated obstruction of the right lower lobe proximal bronchus segment, 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 adenopathy and suspected to left lower lobe metastatic nodule -02/26 Bronch->mucous, no lesion noted -02/27 CT chest showed right mainstem bronchus patent with small amount of interval bronchial fluid which may be mucus (this may account for the appearance of the prior CTA chest fluid-filled airway rather than entering bronchial lesion), previously seen complete left lower lobe since related to bronchial occlusion has significantly improved, there is persistent compressive atelectasis in the right lower lung secondary to the pleural effusion, bilateral pleural effusions, right lung pneumonia -CT neck showed no acute changes - IV Steroids stopped GI: Moderate protein calorie malnutrition -PPI -NTR consulted for tube feedings -BR: Senokot S : Hypernatremia (resolved) -FWF 200 ml q4 hr -Monitor intake and output -Renally dose medications -Avoid nephrotoxic medications -Trend BMP ID: Aspiration PNA Sacral Decubitus Ulcer (POA) -S/p Rocephin for 5 days (02/19-02/24) -Monitor WBC and temperature curve -Wound care consulted Endo: NAD -Avoid hypoglycemia -Accu-Cheks every 6 -Avoid hypoglycemia Heme: NAD -Trend CBC -Transfuse hemoglobin less than 7 -SCDs to BLE while in bed The high probability of a clinically significant, sudden or life threatening deterioration of the [resp] system(s) required my full and direct attention, intervention and personal management. The aggregate critical care time was [60] minutes. This time is in addition to time spent performing reported procedures but includes the following: [x] Data Review and interpretation [x] Patient assessment and monitoring of vital signs [x] Documentation [x] Medication orders and management Disposition Plan: ICU Total Time Spent with Patient (Minutes): 60 History Interval history: Patient seen and examined at the bedside. Remains stable on low vent setting, not on any sedation. Open eyes spontaneously and move extremities but does not follow any commands. SB to SR on the monitor this am, VSS. MAIDA overnight Hospitalist Physical - Physical exam Narrative exam: General appearance: Present: no acute distress, well-nourished, obese - EENT Eyes: Present: PERRL - Neck Neck: Present: normal ROM - Respiratory Respiratory effort: normal Respiratory: bilateral: rhonchi - Cardiovascular Rhythm: regular Heart Sounds: Present: S1 & S2 - Extremities Extremities: no ischemia, pulses intact, pulses symmetrical Extremity abnormal: edema - Peripheral Assessment Generalized Edema Type: Non-pitting Edema Degree: 1+ Capillary Refill: < 3 seconds Skin Temperature: Warm Peripheral Pulses: within normal limits - Abdominal General gastrointestinal: soft, non-distended, normal bowel sounds - Integumentary Integumentary: Present: warm, dry - Psychiatric Psychiatric: other (Intubated, unresponsive. Not on any sedations) - Neurologic Neurologic: moves all extremities, other (Intubated, unresponsive. Not on any sedations) - Allied Health Allied health notes reviewed: nursing, case management - Constitutional Vitals: Temp Pulse Resp BP Pulse Ox 98.2 F 80 16 120/60 98 03/21/22 08:00 03/21/22 12:00 03/21/22 11:00 03/21/22 12:00 03/21/22 12:00 HEART Score - HEART Score Troponin: Troponin T < 0.010 ng/mL (0.00-0.029) 02/18/22 21:02 Results - Labs CBC & Chem 7: 03/20/22 04:09 03/20/22 04:09 Labs: Laboratory Last Values WBC 6.0 K/mm3 (4.5-11.0) 03/20/22 04:09 RBC 2.90 M/mm3 (3.65-5.03) L 03/20/22 04:09 Hgb 9.6 gm/dl (11.8-15.2) L 03/20/22 04:09 Hct 28.9 % (35.5-45.6) L 03/20/22 04:09 MCV 100 fl (84-94) H 03/20/22 04:09 MCH 33 pg (28-32) H 03/20/22 04:09 MCHC 33 % (32-34) 03/20/22 04:09 RDW 17.4 % (13.2-15.2) H 03/20/22 04:09 Plt Count 339 K/mm3 (140-440) 03/20/22 04:09 Lymph % (Auto) 13.3 % (13.4-35.0) L 03/10/22 03:57 Grainger % (Auto) 12.5 % (0.0-7.3) H 03/10/22 03:57 Eos % (Auto) 1.4 % (0.0-4.3) 03/10/22 03:57 Baso % (Auto) 0.4 % (0.0-1.8) 03/10/22 03:57 Lymph # (Auto) 1.3 K/mm3 (1.2-5.4) 03/10/22 03:57 Grainger # (Auto) 1.3 K/mm3 (0.0-0.8) H 03/10/22 03:57 Eos # (Auto) 0.1 K/mm3 (0.0-0.4) 03/10/22 03:57 Baso # (Auto) 0.0 K/mm3 (0.0-0.1) 03/10/22 03:57 Add Manual Diff Complete 03/03/22 03:54 Total Counted 100 03/03/22 03:54 Seg Neutrophils % 72.4 % (40.0-70.0) H 03/10/22 03:57 Seg Neuts % (Manual) 95.0 % (40.0-70.0) H 03/03/22 03:54 Band Neutrophils % 0 % 03/03/22 03:54 Lymphocytes % (Manual) 3.0 % (13.4-35.0) L 03/03/22 03:54 Reactive Lymphs % (Man) 0 % 03/03/22 03:54 Monocytes % (Manual) 2.0 % (0.0-7.3) 03/03/22 03:54 Eosinophils % (Manual) 0 % (0.0-4.3) 03/03/22 03:54 Basophils % (Manual) 0 % (0.0-1.8) 03/03/22 03:54 Metamyelocytes % 0 % 03/03/22 03:54 Myelocytes % 0 % 03/03/22 03:54 Promyelocytes % 0 % 03/03/22 03:54 Blast Cells % 0 % 03/03/22 03:54 Nucleated RBC % Not Reportable 03/03/22 03:54 Seg Neutrophils # 7.4 K/mm3 (1.8-7.7) 03/10/22 03:57 Seg Neutrophils # Man 18.5 K/mm3 (1.8-7.7) H 03/03/22 03:54 Band Neutrophils # 0.0 K/mm3 03/03/22 03:54 Lymphocytes # (Manual) 0.6 K/mm3 (1.2-5.4) L 03/03/22 03:54 Abs React Lymphs (Man) 0.0 K/mm3 03/03/22 03:54 Monocytes # (Manual) 0.4 K/mm3 (0.0-0.8) 03/03/22 03:54 Eosinophils # (Manual) 0.0 K/mm3 (0.0-0.4) 03/03/22 03:54 Basophils # (Manual) 0.0 K/mm3 (0.0-0.1) 03/03/22 03:54 Metamyelocytes # 0.0 K/mm3 03/03/22 03:54 Myelocytes # 0.0 K/mm3 03/03/22 03:54 Promyelocytes # 0.0 K/mm3 03/03/22 03:54 Blast Cells # 0.0 K/mm3 03/03/22 03:54 WBC Morphology Not Reportable 03/03/22 03:54 Hypersegmented Neuts Not Reportable 03/03/22 03:54 Hyposegmented Neuts Not Reportable 03/03/22 03:54 Hypogranular Neuts Not Reportable 03/03/22 03:54 Smudge Cells Not Reportable 03/03/22 03:54 Toxic Granulation Not Reportable 03/03/22 03:54 Toxic Vacuolation Not Reportable 03/03/22 03:54 Dohle Bodies Not Reportable 03/03/22 03:54 Pelger-Huet Anomaly Not Reportable 03/03/22 03:54 Lakshmi Rods Not Reportable 03/03/22 03:54 Platelet Estimate Consistent w auto 03/03/22 03:54 Clumped Platelets Not Reportable 03/03/22 03:54 Plt Clumps, EDTA Not Reportable 03/03/22 03:54 Large Platelets Not Reportable 03/03/22 03:54 Giant Platelets Not Reportable 03/03/22 03:54 Platelet Satelliting Not Reportable 03/03/22 03:54 Plt Morphology Comment Not Reportable 03/03/22 03:54 RBC Morphology Not Reportable 03/03/22 03:54 Dimorphic RBCs Not Reportable 03/03/22 03:54 Polychromasia Not Reportable 03/03/22 03:54 Hypochromasia Not Reportable 03/03/22 03:54 Poikilocytosis Not Reportable 03/03/22 03:54 Anisocytosis 1+ 03/03/22 03:54 Microcytosis Not Reportable 03/03/22 03:54 Macrocytosis Not Reportable 03/03/22 03:54 Spherocytes Not Reportable 03/03/22 03:54 Pappenheimer Bodies Not Reportable 03/03/22 03:54 Sickle Cells Not Reportable 03/03/22 03:54 Target Cells Not Reportable 03/03/22 03:54 Tear Drop Cells Not Reportable 03/03/22 03:54 Ovalocytes Not Reportable 03/03/22 03:54 Helmet Cells Not Reportable 03/03/22 03:54 [place] Bodies Not Reportable 03/03/22 03:54 [place] Rings Not Reportable 03/03/22 03:54 [place] Cells Not Reportable 03/03/22 03:54 Bite Cells Not Reportable 03/03/22 03:54 Crenated Cell Not Reportable 03/03/22 03:54 Elliptocytes Not Reportable 03/03/22 03:54 Acanthocytes (Spur) Not Reportable 03/03/22 03:54 Rouleaux Not Reportable 03/03/22 03:54 Hemoglobin C Crystals Not Reportable 03/03/22 03:54 Schistocytes Not Reportable 03/03/22 03:54 Malaria parasites Not Reportable 03/03/22 03:54 Cash Bodies Not Reportable 03/03/22 03:54 Hem Pathologist Commnt No 03/03/22 03:54 PT 16.2 Sec. (12.2-14.9) H 03/11/22 04:02 INR 1.16 (0.87-1.13) H 03/11/22 04:02 ABG pH 7.476 pH Units (7.350-7.450) H 03/11/22 05:10 ABG pCO2 41.2 mm Hg 03/11/22 05:10 ABG pO2 84.0 mm Hg (80.0-90.0) 03/11/22 05:10 ABG HCO3 29.7 mmol/L (20.0-26.0) H 03/11/22 05:10 ABG O2 Saturation 97.1 % (95.0-99.0) 03/11/22 05:10 ABG O2 Content 12.3 (0.0-44) 03/11/22 05:10 ABG Base Excess 5.7 mmol/L (-2.0-3.0) H 03/11/22 05:10 ABG Hemoglobin 9.1 gm/dl (14.0-18.0) L 03/11/22 05:10 ABG Carboxyhemoglobin 1.7 % (0.0-5.0) 03/11/22 05:10 ABG Methemoglobin 0.5 % (0.0-1.5) 03/11/22 05:10 Oxyhemoglobin 95.0 % (95.0-99.0) 03/11/22 05:10 FiO2 30 % 03/11/22 05:10 Sodium 140 mmol/L (137-145) 03/20/22 04:09 Potassium 4.4 mmol/L (3.6-5.0) 03/20/22 04:09 Chloride 101.7 mmol/L (98-107) 03/20/22 04:09 Carbon Dioxide 30 mmol/L (22-30) 03/20/22 04:09 Anion Gap 13 mmol/L 03/20/22 04:09 BUN 18 mg/dL (9-20) 03/20/22 04:09 Creatinine 0.6 mg/dL (0.8-1.3) L 03/20/22 04:09 Estimated GFR > 60 ml/min 03/20/22 04:09 BUN/Creatinine Ratio 30 % 03/20/22 04:09 Glucose 94 mg/dL (75-100) 03/20/22 04:09 POC Glucose 104 mg/dL (70-105) 03/21/22 04:53 Lactic Acid 1.20 mmol/L (0.7-2.0) 02/18/22 21:02 Calcium 8.2 mg/dL (8.4-10.2) L 03/20/22 04:09 Phosphorus 3.50 mg/dL (2.5-4.5) 03/20/22 04:09 Magnesium 2.00 mg/dL (1.7-2.3) 03/20/22 04:09 Total Bilirubin 0.30 mg/dL (0.1-1.2) 03/10/22 03:57 AST 17 units/L (5-40) 03/10/22 03:57 ALT 18 units/L (7-56) 03/10/22 03:57 Alkaline Phosphatase 89 units/L (35-129) 03/10/22 03:57 Ammonia 14.0 umol/L (25-60) L 02/18/22 23:22 Troponin T < 0.010 ng/mL (0.00-0.029) 02/18/22 21:02 Total Protein 6.6 g/dL (6.3-8.2) 03/10/22 03:57 Albumin 1.9 g/dL (3.9-5) L 03/10/22 03:57 Albumin/Globulin Ratio 0.4 % 03/10/22 03:57 Urine Color Dark yellow (Yellow) 02/18/22 Unknown Urine Turbidity Clear (Clear) 02/18/22 Unknown Urine pH 7.0 (5.0-7.0) 02/18/22 Unknown Ur Specific [place] 1.015 (1.003-1.030) 02/18/22 Unknown Urine Protein <15 mg/dl mg/dL (Negative) 02/18/22 Unknown Urine Glucose (UA) Negative mg/dL (Negative) 02/18/22 Unknown Urine Ketones Negative mg/dL (Negative) 02/18/22 Unknown Urine Blood Trace (Negative) 02/18/22 Unknown Urine Nitrite Negative (Negative) 02/18/22 Unknown Urine Bilirubin Negative (Negative) 02/18/22 Unknown Urine Urobilinogen < 2.0 mg/dL (<2.0) 02/18/22 Unknown Ur Leukocyte Esterase Negative (Negative) 02/18/22 Unknown Urine WBC (Auto) 2.0 /HPF (0.0-6.0) 02/18/22 Unknown Urine RBC (Auto) 9.0 /HPF (0.0-6.0) 02/18/22 Unknown Urine Mucus Few /HPF 02/18/22 Unknown Urine Opiates Screen Negative 02/18/22 Unknown Urine Methadone Screen Negative 02/18/22 Unknown Ur Barbiturates Screen Negative 02/18/22 Unknown Ur Phencyclidine Scrn Negative 02/18/22 Unknown Ur Amphetamines Screen Negative 02/18/22 Unknown U Benzodiazepines Scrn Negative 02/18/22 Unknown Urine Cocaine Screen Negative 02/18/22 Unknown U Marijuana (THC) Screen Negative 02/18/22 Unknown Drugs of Abuse Note Disclamer 02/18/22 Unknown Plasma/Serum Alcohol < 0.01 % (0-0.07) 02/18/22 21:02 Summers/IV: Voiding Method Indwelling Catheter Active Medications - Current Medications Current Medications: Generic Name Dose Route Start Last Admin Trade Name Freq PRN Reason Stop Dose Admin Acetaminophen 650 mg 03/03/22 09:00 Acetaminophen 325 Mg/10.15 Ml Oral Liqd Unit Dose FEEDTUBE Q4H PRN Pain, Mild (1-3); TEMP > 100.4 Albuterol 2.5 mg 03/12/22 20:00 03/21/22 07:20 Albuterol 2.5 Mg/3 Ml Nebu IH 2.5 mg Q6HRT LAZARUS Administration Famotidine 20 mg 02/25/22 10:00 03/21/22 09:13 Famotidine 20 Mg Tab FEEDTUBE 20 mg BID LAZARUS Administration Heparin Sodium (Porcine) 5,000 unit 02/19/22 06:00 03/21/22 06:39 Heparin 5,000 Unit/1 Ml Vial SUB-Q 5,000 unit Q8HR LAZARUS Administration Hydrophilic Ointment 1 applic 02/24/22 15:05 Lip Therapy Vaseline TP Q2HR PRN Dry Lips Levetiracetam 500 mg 02/25/22 22:00 03/21/22 09:13 Levetiracetam 500 Mg/5 Ml Oral Liqd FEEDTUBE 500 mg BID LAZARUS Administration Levothyroxine Sodium 25 mcg 02/26/22 06:00 03/21/22 06:39 Levothyroxine 25 Mcg Tab FEEDTUBE 25 mcg QAM@0600 LAZARUS Administration Magnesium Hydroxide 30 ml 02/19/22 02:02 Magnesium Hydroxide (Mom) Oral Liqd Udc PO Q4H PRN Constipation Midodrine 2.5 mg 03/19/22 12:00 03/21/22 08:18 Midodrine 2.5 Mg Tab FEEDTUBE 2.5 mg TID@0800,1200,1600 LAZARUS Administration Multi-Ingred Cream/Lotion/Oil/Oint 1 applic 02/24/22 15:05 Mineral Oil/Petrolatum, White Ophth Oint 3.5 Gm OU Q4HR PRN Dry Eye(s) Ondansetron HCl 4 mg 02/19/22 02:02 Ondansetron 4 Mg/2 Ml Inj IV Q8H PRN Nausea And Vomiting Pravastatin Sodium 40 mg 02/25/22 22:00 03/20/22 21:06 Pravastatin 40 Mg Tab FEEDTUBE 40 mg QHS LAZARUS Administration Senna/Docusate Sodium 1 tab 02/24/22 22:00 03/21/22 09:13 Sennosides/Docusate Sodium 8.6/50 Mg Tab FEEDTUBE 1 tab BID LAZARUS Administration Sodium Chloride 10 ml 02/19/22 10:00 03/21/22 09:13 Sodium Chloride 0.9% 10 Ml Flush Syringe IV 10 ml BID LAZARUS Administration Sodium Chloride 10 ml 02/19/22 02:02 03/03/22 14:21 Sodium Chloride 0.9% 10 Ml Flush Syringe IV 10 ml PRN PRN Administration LINE FLUSH Nutrition/Malnutrition Assess - Dietary Evaluation Nutrition/Malnutrition Findings: Nutrition Notes Start: 02/19/22 14:29 Freq: Status: Active Protocol: Document 03/14/22 14:33 [facility] (Rec: 03/14/22 14:36 [facility] [id number]) Nutrition Notes Initial or Follow up Reassessment Current Diagnosis Hypertension,Respiratory Failure,Hyperlipidemia Other Pertinent Diagnosis Asp pneu, acute encephalopathy , seizure d/o, partial blindness Current Diet TF - Vital AF 1.2 at 50ml/hr Labs/Tests Reviewed Pertinent Medications Reviewed Height 5 ft 3 in Weight 63.2 kg Ozone Body Weight (kg) 56.36 BMI 24.7 Weight Status Appropriate Subjective/Other Information Pt remains on vent support; no trach or PEG placed yet. Pt continues to tolerate TF. BM x 1 today. Percent of energy/protein needs met: 90% energy 100% pro Burn Absent Trauma Absent #1 Nutrition Diagnosis Inadequate oral intake Diagnosis Progress(for reassessment Continues documentation) Is patient on ventilator? Yes Is Patient Ambulatory and/or Out of Bed No REE-([place]-confined to bed) [phone] Calculation Used for Recommendations [place] Additional Notes Pro needs 1.2-2g/k-126g/ day Fluid needs 1ml/kcal Nutrition Intervention Nutrition Support: Continue Vital AF 1.2 at 50ml/ hr with 75ml water flush q4h. Kcal 1,440 Protein (gm) 90 Carbohydrates (gm) 133 Fat (gm) 65 Fluid (mL) 973 Fiber (gm) 6 Goal #1 TF tolerance Goal #2 TF to meet at least 75% energy and pro needs Follow-Up By: 03/21/22 Additional Comments F/U: stable TF, trach/PEG placement, vent status <JOAQUIN ROBIN - Last Filed: 03/22/22 10:28> Assessment and Plan Assessment and plan: I saw and evaluated the patient. I agree with the findings and the plan of care as documented in the Nurse Practitioner's~note, with the following corrections and additions. Hospitalist Physical - Constitutional Vitals: Temp Pulse Resp BP Pulse Ox 98.2 F 71 9 L 87/40 100 03/22/22 08:00 03/22/22 08:00 03/22/22 08:00 03/22/22 08:00 03/22/22 08:10 HEART Score - HEART Score Troponin: Troponin T < 0.010 ng/mL (0.00-0.029) 02/18/22 21:02 Results - Labs CBC & Chem 7: 03/20/22 04:09 03/20/22 04:09 Labs: Laboratory Last Values WBC 6.0 K/mm3 (4.5-11.0) 03/20/22 04:09 RBC 2.90 M/mm3 (3.65-5.03) L 03/20/22 04:09 Hgb 9.6 gm/dl (11.8-15.2) L 03/20/22 04:09 Hct 28.9 % (35.5-45.6) L 03/20/22 04:09 MCV 100 fl (84-94) H 03/20/22 04:09 MCH 33 pg (28-32) H 03/20/22 04:09 MCHC 33 % (32-34) 03/20/22 04:09 RDW 17.4 % (13.2-15.2) H 03/20/22 04:09 Plt Count 339 K/mm3 (140-440) 03/20/22 04:09 Lymph % (Auto) 13.3 % (13.4-35.0) L 03/10/22 03:57 [place]inger % (Auto) 12.5 % (0.0-7.3) H 03/10/22 03:57 Eos % (Auto) 1.4 % (0.0-4.3) 03/10/22 03:57 Baso % (Auto) 0.4 % (0.0-1.8) 03/10/22 03:57 Lymph # (Auto) 1.3 K/mm3 (1.2-5.4) 03/10/22 03:57 [place]inger # (Auto) 1.3 K/mm3 (0.0-0.8) H 03/10/22 03:57 Eos # (Auto) 0.1 K/mm3 (0.0-0.4) 03/10/22 03:57 Baso # (Auto) 0.0 K/mm3 (0.0-0.1) 03/10/22 03:57 Add Manual Diff Complete 03/03/22 03:54 Total Counted 100 03/03/22 03:54 Seg Neutrophils % 72.4 % (40.0-70.0) H 03/10/22 03:57 Seg Neuts % (Manual) 95.0 % (40.0-70.0) H 03/03/22 03:54 Band Neutrophils % 0 % 03/03/22 03:54 Lymphocytes % (Manual) 3.0 % (13.4-35.0) L 03/03/22 03:54 Reactive Lymphs % (Man) 0 % 03/03/22 03:54 Monocytes % (Manual) 2.0 % (0.0-7.3) 03/03/22 03:54 Eosinophils % (Manual) 0 % (0.0-4.3) 03/03/22 03:54 Basophils % (Manual) 0 % (0.0-1.8) 03/03/22 03:54 Metamyelocytes % 0 % 03/03/22 03:54 Myelocytes % 0 % 03/03/22 03:54 Promyelocytes % 0 % 03/03/22 03:54 Blast Cells % 0 % 03/03/22 03:54 Nucleated RBC % Not Reportable 03/03/22 03:54 Seg Neutrophils # 7.4 K/mm3 (1.8-7.7) 03/10/22 03:57 Seg Neutrophils # Man 18.5 K/mm3 (1.8-7.7) H 03/03/22 03:54 Band Neutrophils # 0.0 K/mm3 03/03/22 03:54 Lymphocytes # (Manual) 0.6 K/mm3 (1.2-5.4) L 03/03/22 03:54 Abs React Lymphs (Man) 0.0 K/mm3 03/03/22 03:54 Monocytes # (Manual) 0.4 K/mm3 (0.0-0.8) 03/03/22 03:54 Eosinophils # (Manual) 0.0 K/mm3 (0.0-0.4) 03/03/22 03:54 Basophils # (Manual) 0.0 K/mm3 (0.0-0.1) 03/03/22 03:54 Metamyelocytes # 0.0 K/mm3 03/03/22 03:54 Myelocytes # 0.0 K/mm3 03/03/22 03:54 Promyelocytes # 0.0 K/mm3 03/03/22 03:54 Blast Cells # 0.0 K/mm3 03/03/22 03:54 WBC Morphology Not Reportable 03/03/22 03:54 Hypersegmented Neuts Not Reportable 03/03/22 03:54 Hyposegmented Neuts Not Reportable 03/03/22 03:54 Hypogranular Neuts Not Reportable 03/03/22 03:54 Smudge Cells Not Reportable 03/03/22 03:54 Toxic Granulation Not Reportable 03/03/22 03:54 Toxic Vacuolation Not Reportable 03/03/22 03:54 Dohle Bodies Not Reportable 03/03/22 03:54 Pelger-Huet Anomaly Not Reportable 03/03/22 03:54 Lakshmi Rods Not Reportable 03/03/22 03:54 Platelet Estimate Consistent w auto 03/03/22 03:54 Clumped Platelets Not Reportable 03/03/22 03:54 Plt Clumps, EDTA Not Reportable 03/03/22 03:54 Large Platelets Not Reportable 03/03/22 03:54 Giant Platelets Not Reportable 03/03/22 03:54 Platelet Satelliting Not Reportable 03/03/22 03:54 Plt Morphology Comment Not Reportable 03/03/22 03:54 RBC Morphology Not Reportable 03/03/22 03:54 Dimorphic RBCs Not Reportable 03/03/22 03:54 Polychromasia Not Reportable 03/03/22 03:54 Hypochromasia Not Reportable 03/03/22 03:54 Poikilocytosis Not Reportable 03/03/22 03:54 Anisocytosis 1+ 03/03/22 03:54 Microcytosis Not Reportable 03/03/22 03:54 Macrocytosis Not Reportable 03/03/22 03:54 Spherocytes Not Reportable 03/03/22 03:54 Pappenheimer Bodies Not Reportable 03/03/22 03:54 Sickle Cells Not Reportable 03/03/22 03:54 Target Cells Not Reportable 03/03/22 03:54 Tear Drop Cells Not Reportable 03/03/22 03:54 Ovalocytes Not Reportable 03/03/22 03:54 Helmet Cells Not Reportable 03/03/22 03:54 [place] Bodies Not Reportable 03/03/22 03:54 [place] Rings Not Reportable 03/03/22 03:54 [place] Cells Not Reportable 03/03/22 03:54 Bite Cells Not Reportable 03/03/22 03:54 Crenated Cell Not Reportable 03/03/22 03:54 Elliptocytes Not Reportable 03/03/22 03:54 Acanthocytes (Spur) Not Reportable 03/03/22 03:54 Rouleaux Not Reportable 03/03/22 03:54 Hemoglobin C Crystals Not Reportable 03/03/22 03:54 Schistocytes Not Reportable 03/03/22 03:54 Malaria parasites Not Reportable 03/03/22 03:54 Cash Bodies Not Reportable 03/03/22 03:54 Hem Pathologist Commnt No 03/03/22 03:54 PT 16.2 Sec. (12.2-14.9) H 03/11/22 04:02 INR 1.16 (0.87-1.13) H 03/11/22 04:02 ABG pH 7.476 pH Units (7.350-7.450) H 03/11/22 05:10 ABG pCO2 41.2 mm Hg 03/11/22 05:10 ABG pO2 84.0 mm Hg (80.0-90.0) 03/11/22 05:10 ABG HCO3 29.7 mmol/L (20.0-26.0) H 03/11/22 05:10 ABG O2 Saturation 97.1 % (95.0-99.0) 03/11/22 05:10 ABG O2 Content 12.3 (0.0-44) 03/11/22 05:10 ABG Base Excess 5.7 mmol/L (-2.0-3.0) H 03/11/22 05:10 ABG Hemoglobin 9.1 gm/dl (14.0-18.0) L 03/11/22 05:10 ABG Carboxyhemoglobin 1.7 % (0.0-5.0) 03/11/22 05:10 ABG Methemoglobin 0.5 % (0.0-1.5) 03/11/22 05:10 Oxyhemoglobin 95.0 % (95.0-99.0) 03/11/22 05:10 FiO2 30 % 03/11/22 05:10 Sodium 140 mmol/L (137-145) 03/20/22 04:09 Potassium 4.4 mmol/L (3.6-5.0) 03/20/22 04:09 Chloride 101.7 mmol/L (98-107) 03/20/22 04:09 Carbon Dioxide 30 mmol/L (22-30) 03/20/22 04:09 Anion Gap 13 mmol/L 03/20/22 04:09 BUN 18 mg/dL (9-20) 03/20/22 04:09 Creatinine 0.6 mg/dL (0.8-1.3) L 03/20/22 04:09 Estimated GFR > 60 ml/min 03/20/22 04:09 BUN/Creatinine Ratio 30 % 03/20/22 04:09 Glucose 94 mg/dL (75-100) 03/20/22 04:09 POC Glucose 93 mg/dL (70-105) 03/22/22 05:11 Lactic Acid 1.20 mmol/L (0.7-2.0) 02/18/22 21:02 Calcium 8.2 mg/dL (8.4-10.2) L 03/20/22 04:09 Phosphorus 3.50 mg/dL (2.5-4.5) 03/20/22 04:09 Magnesium 2.00 mg/dL (1.7-2.3) 03/20/22 04:09 Total Bilirubin 0.30 mg/dL (0.1-1.2) 03/10/22 03:57 AST 17 units/L (5-40) 03/10/22 03:57 ALT 18 units/L (7-56) 03/10/22 03:57 Alkaline Phosphatase 89 units/L (35-129) 03/10/22 03:57 Ammonia 14.0 umol/L (25-60) L 02/18/22 23:22 Troponin T < 0.010 ng/mL (0.00-0.029) 02/18/22 21:02 Total Protein 6.6 g/dL (6.3-8.2) 03/10/22 03:57 Albumin 1.9 g/dL (3.9-5) L 03/10/22 03:57 Albumin/Globulin Ratio 0.4 % 03/10/22 03:57 Urine Color Dark yellow (Yellow) 02/18/22 Unknown Urine Turbidity Clear (Clear) 02/18/22 Unknown Urine pH 7.0 (5.0-7.0) 02/18/22 Unknown Ur Specific [place] 1.015 (1.003-1.030) 02/18/22 Unknown Urine Protein <15 mg/dl mg/dL (Negative) 02/18/22 Unknown Urine Glucose (UA) Negative mg/dL (Negative) 02/18/22 Unknown Urine Ketones Negative mg/dL (Negative) 02/18/22 Unknown Urine Blood Trace (Negative) 02/18/22 Unknown Urine Nitrite Negative (Negative) 02/18/22 Unknown Urine Bilirubin Negative (Negative) 02/18/22 Unknown Urine Urobilinogen < 2.0 mg/dL (<2.0) 02/18/22 Unknown Ur Leukocyte Esterase Negative (Negative) 02/18/22 Unknown Urine WBC (Auto) 2.0 /HPF (0.0-6.0) 02/18/22 Unknown Urine RBC (Auto) 9.0 /HPF (0.0-6.0) 02/18/22 Unknown Urine Mucus Few /HPF 02/18/22 Unknown Urine Opiates Screen Negative 02/18/22 Unknown Urine Methadone Screen Negative 02/18/22 Unknown Ur Barbiturates Screen Negative 02/18/22 Unknown Ur Phencyclidine Scrn Negative 02/18/22 Unknown Ur Amphetamines Screen Negative 02/18/22 Unknown U Benzodiazepines Scrn Negative 02/18/22 Unknown Urine Cocaine Screen Negative 02/18/22 Unknown U Marijuana (THC) Screen Negative 02/18/22 Unknown Drugs of Abuse Note Disclamer 02/18/22 Unknown Plasma/Serum Alcohol < 0.01 % (0-0.07) 02/18/22 21:02 Summers/IV: Voiding Method Indwelling Catheter Active Medications - Current Medications Current Medications: Generic Name Dose Route Start Last Admin Trade Name Freq PRN Reason Stop Dose Admin Acetaminophen 650 mg 03/03/22 09:00 Acetaminophen 325 Mg/10.15 Ml Oral Liqd Unit Dose FEEDTUBE Q4H PRN Pain, Mild (1-3); TEMP > 100.4 Albuterol 2.5 mg 03/12/22 20:00 03/22/22 07:19 Albuterol 2.5 Mg/3 Ml Nebu IH 2.5 mg Q6HRT LAZARUS Administration Famotidine 20 mg 02/25/22 10:00 03/22/22 09:08 Famotidine 20 Mg Tab FEEDTUBE 20 mg BID LAZARUS Administration Heparin Sodium (Porcine) 5,000 unit 02/19/22 06:00 03/22/22 05:45 Heparin 5,000 Unit/1 Ml Vial SUB-Q 5,000 unit Q8HR LAZARUS Administration Hydrophilic Ointment 1 applic 02/24/22 15:05 Lip Therapy Vaseline TP Q2HR PRN Dry Lips Levetiracetam 500 mg 02/25/22 22:00 03/22/22 09:08 Levetiracetam 500 Mg/5 Ml Oral Liqd FEEDTUBE 500 mg BID LAZARUS Administration Levothyroxine Sodium 25 mcg 02/26/22 06:00 03/22/22 05:45 Levothyroxine 25 Mcg Tab FEEDTUBE 25 mcg QAM@0600 LAZARUS Administration Magnesium Hydroxide 30 ml 02/19/22 02:02 Magnesium Hydroxide (Mom) Oral Liqd Udc PO Q4H PRN Constipation Midodrine 2.5 mg 03/19/22 12:00 03/22/22 09:08 Midodrine 2.5 Mg Tab FEEDTUBE 2.5 mg TID@0800,1200,1600 LAZARUS Administration Multi-Ingred Cream/Lotion/Oil/Oint 1 applic 02/24/22 15:05 Mineral Oil/Petrolatum, White Ophth Oint 3.5 Gm OU Q4HR PRN Dry Eye(s) Ondansetron HCl 4 mg 02/19/22 02:02 Ondansetron 4 Mg/2 Ml Inj IV Q8H PRN Nausea And Vomiting Pravastatin Sodium 40 mg 02/25/22 22:00 03/21/22 21:38 Pravastatin 40 Mg Tab FEEDTUBE 40 mg QHS LAZARUS Administration Senna/Docusate Sodium 1 tab 02/24/22 22:00 03/22/22 09:08 Sennosides/Docusate Sodium 8.6/50 Mg Tab FEEDTUBE 1 tab BID LAZARUS Administration Sodium Chloride 10 ml 02/19/22 10:00 03/22/22 09:09 Sodium Chloride 0.9% 10 Ml Flush Syringe IV 10 ml BID LAZARUS Administration Sodium Chloride 10 ml 02/19/22 02:02 03/03/22 14:21 Sodium Chloride 0.9% 10 Ml Flush Syringe IV 10 ml PRN PRN Administration LINE FLUSH Nutrition/Malnutrition Assess - Dietary Evaluation Nutrition/Malnutrition Findings: Nutrition Notes Start: 02/19/22 14:29 Freq: Status: Active Protocol: Document 03/21/22 15:43 IVAN (Rec: 03/21/22 15:45 NCISAI [id number]) Nutrition Notes Initial or Follow up Reassessment Current Diagnosis Hypertension,Respiratory Failure,Hyperlipidemia Other Pertinent Diagnosis Asp pneu, acute encephalopathy , seizure d/o, partial blindness Current Diet TF - Vital AF 1.2 at 50ml/hr Labs/Tests Reviewed Pertinent Medications Reviewed Height 5 ft 3 in Weight 63.2 kg Ozone Body Weight (kg) 56.36 BMI 24.7 Weight Status Appropriate Subjective/Other Information Pt remains on vent support; still awaiting decision on guardianship for trach/PEG placement. Pt continues to tolerate TF at goal rate. Last BM was 03/18 per RN verbal report. Percent of energy/protein needs met: 90% energy 100% pro Burn Absent Trauma Absent #1 Nutrition Diagnosis Inadequate oral intake Diagnosis Progress(for reassessment Continues documentation) Is patient on ventilator? Yes Is Patient Ambulatory and/or Out of Bed No REE-([facility]-confined to bed) [phone] Calculation Used for Recommendations [facility] Additional Notes Pro needs 1.2-2g/k-126g/ day Fluid needs 1ml/kcal Nutrition Intervention Nutrition Support: Continue Vital AF 1.2 at 50ml/ hr with 75ml water flush q4h. Kcal 1,440 Protein (gm) 90 Carbohydrates (gm) 133 Fat (gm) 65 Fluid (mL) 973 Fiber (gm) 6 Goal #1 TF tolerance Goal #2 TF to meet at least 75% energy and pro needs Follow-Up By: 03/28/22 Additional Comments F/U: stable TF, trach/PEG placement, vent status, wt, BM
--- NOTE | 2022-03-21 14:16 | Progress Note ---
Assessment and Plan 61 y/o male with abnormal CT of chest. 03/21/22: Day 25 of intubation. No new updates from the hospital about guardianship. Wound care saw on yesterday. Continue daily PSV trials as tolerated. Guarded prognosis. 03/20/22: Day 24 of intubation. No new recommendations. Still awaiting hospital update in regards to guardianship so that decisions can be made. Continue supportive measures. Wound care to see today. 03/19/22: Day 23 of intubation. Prognosis is still guarded. Will discuss with RT about attempts at daily PSV trials. Per notes, Wound care to see , wound was present on admission. 03/18/22: Day 22 of intubation. Prognosis remains guarded. Not able to obtain trach and peg with consent. Continue daily PSV trials as tolerated. 03/17/22: Day 21 of intubation. Still awaiting some form of decision maker for trach and peg placement. Guarded prognosis. 03/16/22: Day 20 of intubation. BP stable. Continue midodrine. Awaiting emergency guardianship from Court to obtain consent for trach and peg. Guarded prognosis. 03/15/22: Day 19 of intubation. BP now is marginal more regularly. Will give an additional liter bolus of LR now. May need to increase Midodrine back to 5. Needs trach in order to be safely weaned from ventilator. Will need peg tube placement in addition to trach. Prognosis remains guarded. Continue PSV trials as tolerated. 03/14/22: Day 18 of intubation. Vitals stable and mental status is unchanged. Still in need of tracheostomy as well as peg tube placement. No guardian appointed yet. 03/13/22: Day 17 of intubation. Agree with bolus and restarting of midodrine. was stopped previously secondary to bradycardia. If patient spikes temp, will culture blood and urine and repeat CXR. Continue daily PSV trials to assess ability for vent liberation. Continues to need trach however no family/guardian to provide consent. Guarded prognosis. 03/12/22: Day 16 of intubation. Following up with hospital in regards to guardian. Continue supportive measures. Guarded prognosis. 03/11/22: hospital now attempting to find emergency guardian to have consent for trach as ethics committee cannot comment on this matter so unable to help. Until then will remain intubated orally. Failed PSV yesterday, will continue to attempt on daily basis. Unfortunate situation. Guarded prognosis. 03/10/22: Today nuñez day 14 of intubation. Given patient's mental state and i ncreased risk of aspiration, the likelihood of conventional extubation with success is very very slim and the patient has already failed this in an extremely short period of time (less than 1 hour). I suspect that he will fail again if tried and could create more difficult reintubation as he was a difficult reintubation on his failed extubation attempt. To prevent further decline and potential complications of prolonged mechanical ventilation, will discuss with ethics and the hospital to use 2 physician consent to obtain trach and peg for this patient with hopes of liberating him from the mechanical ventilator. he has very minimal vent requirements but as been stated several times above, he continues to aspirate and failed conventional extubation almost immediately. Will consult surgery today. Dr. Mancia is prepared to sign consent as well as myself. Hopeful surgery will be on board with this. Continue supportive care for now. Attempt daily PSV trials. 03/07/22: Daily PSV trials as tolerated. Still no one to step up as adult friend. patient has now been intubated since 02/24/22 and is approaching the time period in which prolonged mechanical ventilation could lead to significant complications that could be detrimental to health (infection, stenosis, malacia etc). Will discuss again with ethics but in regards to medical necessity, may need to consider two physician consent if no one is able to claim responsibility for this patient. He is a full code and we must work in his best interest to prevent further harm. Continue supportive measures but he is not a candidate for conventional extubation given his mental state, despite being on minimal support. He has already failed this before. 03/06/22: PSV trials daily. Will discuss with RT. Spoke with ethics. Plan in place and awaiting on news from [facility] and state. Continue supportive measures. Patient has been intubated since 02/24/22 and is approaching the 2 week shadi of intubation will need to make decisions soon to avoid unnecessary complications related to prolonged intubation. 03/05/22: Will follow up with ethics today. Awaiting some guidance about consent for trach and peg. This is a medical necessity to liberate patient from mechanical ventilation. Continue supportive measures. Ok with daily PSV trials 03/04/22: Follow up with ethics later this afternoon. Spoke with RT and patient does have cuff leak, will stop steroids. Stopping midodrine as BP is stable and bradycardia likely from this. 03/03/22: Await ethics eval. CM has spoken with state as well. Daily cuff leaks. Will start to wean steroids tomorrow. Midodrine can cause bradycardia. If continues or worsens will stop. Guarded prognosis. 03/02/22: Continue supportive measures. Await ethics consult before surgery consult for trach and peg. no further need for fluid boluses. Will continue stress dose steroids but have daily air leak checks by RT. Still will need trach, will not attempt extubation again. Guarded prognosis. 03/01/22: Patient is having increased urine output. This could be the cause of new onset hypotension. Will bolus 2 more liters of LR now and reassess. If this continues may need to work up for [facility] including repeat head CT. Follow up ethics review of case. Will need trach for ventilator liberation. Overall prognosis remains guarded. 02/28/22: Will obtain CT neck, noncontrast to look for airway edema or other possible etiologies for failure. Needs ethics consult as given patient's mental state, inability to clear secretions appropriately, will need trach now that he has failed extubation. However he has no family and no POA so no one to give consent. Continue supportive measures. Guarded prognosis. 02/27/22: Continue improvement of oxygenation. Will drop PEEP down today with goal of being at 6 by in the morning. Will repeat CT scan to confirm improvement as no endobronchial lesion was seen, but also to make sure no parenchymal mass. There was no evidence of extrinsic compression during bronch. Likely extubation tomorrow post CT. 02/26/22: Repeat CXR now. Wean Vent as tolerated. Hopeful extubation soon. Mucous removed. NO ENDOBRONCHIAL LESION/MASS 02/25/22: Bronch tentatively planned for tomorrow with therapeutic scope. Awaiting GI lab to give a time. NPO after midnight. Continue high PEEP 02/24/22: WIll attempt to bronch tomorrow morning. NPO after midnight. Just received word from GI lab they are not able to do bronch tomorrow. Cancel NPO order. Continue to feed patient. Repeat ABG in AM along with CXR. 02/21/22: No new pulm recs for today. Please obtain repeat CXR likely on Thursday. If patient happens to get worse, likely not a candidate for bipap given his weak cough and mental state and inability to communicate. If worsens and requires intubation, will bronch then under emergent circumstances if no POA or family is able to be located. Continue CPT. Will discuss with RT about NT suctioning. 02/20/22: Saw speech while on the floor. Would like patient to be NPO now. Discussed with nurse on floor and with IMS. Same recs pulm way as yesterday. Would benefit from bronch if able to get consent as this is not emergent. Continue CPT and q shift NT suctioning. Reviewed admission in the past and of note, patient was recently admitted last month and had a CXR done on the 29 of January that was normal. Given this patient's medical history and the history that I obtained from the nursing staff that at the care home he was eating solid foods, I suspect that this is aspiration, possibly of a foreign body (most likely food) with atelectasis of the right lower lobe. It is highly unlikely that a mass evolved in size in less than a months time and patient, besides age, has no real risk factors for lung carcinoma. Discussed with the nurse and unfortunately there is no identifiable person that is able to give consent. Bronchoscopy is needed in the case to evaluate to see if lung mass is there vs foreign body, but at this time not able to do. In the meanwhile will recommend the following. 1. Will order CPT with neb therapy 3x daily 2. Suggest maybe NT suctioning q shift. May use nasal trumpet, however do not leave this device in the patient 3. Aspiration precautions 4. Consider speech eval to assess swallowing. Will continue to follow. CCT 31 minutes. Subjective Date of service: 03/21/22 Principal diagnosis: f/u Acute respiratory failure Interval history: No acute events. Objective Vital Signs - 12hr 03/21/22 03/21/22 03/21/22 02:42 03:00 03:36 Temperature 99.5 F Pulse Rate 71 Pulse Rate [ Anterior Bilateral Throughout] Pulse Rate [ 77 Bilateral Throughout] Pulse Rate [ From Monitor] Respiratory 14 Rate Respiratory Rate [Anterior Bilateral Throughout] Respiratory 16 Rate [Bilateral Throughout] Blood Pressure 105/51 O2 Sat by Pulse 100 Oximetry 03/21/22 03/21/22 03/21/22 04:00 04:28 05:00 Temperature Pulse Rate 74 79 78 Pulse Rate [ Anterior Bilateral Throughout] Pulse Rate [ Bilateral Throughout] Pulse Rate [ 81 From Monitor] Respiratory 14 14 Rate Respiratory Rate [Anterior Bilateral Throughout] Respiratory Rate [Bilateral Throughout] Blood Pressure 101/53 101/53 100/64 O2 Sat by Pulse 99 98 98 Oximetry 03/21/22 03/21/22 03/21/22 06:00 07:00 07:22 Temperature Pulse Rate 77 80 Pulse Rate [ 83 Anterior Bilateral Throughout] Pulse Rate [ Bilateral Throughout] Pulse Rate [ From Monitor] Respiratory 14 14 Rate Respiratory 17 Rate [Anterior Bilateral Throughout] Respiratory Rate [Bilateral Throughout] Blood Pressure 103/59 108/52 O2 Sat by Pulse 98 98 Oximetry 03/21/22 03/21/22 03/21/22 07:25 08:00 09:00 Temperature 98.2 F Pulse Rate 86 79 78 Pulse Rate [ Anterior Bilateral Throughout] Pulse Rate [ Bilateral Throughout] Pulse Rate [ From Monitor] Respiratory 16 15 Rate Respiratory Rate [Anterior Bilateral Throughout] Respiratory Rate [Bilateral Throughout] Blood Pressure 108/52 104/58 102/62 O2 Sat by Pulse 96 97 97 Oximetry 03/21/22 03/21/22 03/21/22 10:00 11:00 12:00 Temperature Pulse Rate 76 80 80 Pulse Rate [ Anterior Bilateral Throughout] Pulse Rate [ Bilateral Throughout] Pulse Rate [ From Monitor] Respiratory 15 16 Rate Respiratory Rate [Anterior Bilateral Throughout] Respiratory Rate [Bilateral Throughout] Blood Pressure 112/60 120/60 120/60 O2 Sat by Pulse 98 98 98 Oximetry Constitutional: alert, other (critically ill on ventilator) Eyes: non-icteric ENT: oropharynx moist Neck: supple Effort: normal Ascultation: Bilateral: diminished breath sounds, rhonchi Cardiovascular: regular rate and rhythm (no mrg) Gastrointestinal: normoactive bowel sounds, soft, non-tender (on o2 vest in place), non-distended Integumentary: normal Extremities: no cyanosis, no edema Neurologic: other (awake) Psychiatric: other (unable to assess) CBC and BMP: 03/20/22 04:09 03/20/22 04:09 ABG, PT/INR, D-dimer: ABG ABG pH 7.476 pH Units (7.350-7.450) H 03/11/22 05:10 ABG pCO2 41.2 mm Hg 03/11/22 05:10 ABG pO2 84.0 mm Hg (80.0-90.0) 03/11/22 05:10 ABG O2 Saturation 97.1 % (95.0-99.0) 03/11/22 05:10 PT/INR, D-dimer PT 16.2 Sec. (12.2-14.9) H 03/11/22 04:02 INR 1.16 (0.87-1.13) H 03/11/22 04:02 Abnormal lab findings: Abnormal Labs 02/18/22 02/18/22 02/18/22 19:34 21:02 21:02 WBC RBC Hgb Hct MCV 101 H MCH 34 H MCHC RDW 16.1 H Lymph % (Auto) [place] % (Auto) 12.4 H Lymph # (Auto) [place] # (Auto) 1.2 H Seg Neutrophils % 73.0 H Seg Neuts % (Manual) Lymphocytes % (Manual) Seg Neutrophils # Seg Neutrophils # Man Lymphocytes # (Manual) PT 16.9 H INR 1.20 H ABG pH ABG pO2 ABG HCO3 ABG O2 Saturation ABG Base Excess ABG Hemoglobin Oxyhemoglobin Sodium Potassium Chloride Carbon Dioxide BUN Creatinine Glucose POC Glucose 116 H Calcium Phosphorus AST ALT Ammonia Albumin 02/18/22 02/18/22 02/18/22 21:02 22:45 23:22 WBC RBC Hgb Hct MCV MCH MCHC RDW Lymph % (Auto) [place] % (Auto) Lymph # (Auto) [place] # (Auto) Seg Neutrophils % Seg Neuts % (Manual) Lymphocytes % (Manual) Seg Neutrophils # Seg Neutrophils # Man Lymphocytes # (Manual) PT INR ABG pH ABG pO2 55.6 L ABG HCO3 28.4 H ABG O2 Saturation 91.5 L ABG Base Excess 3.8 H ABG Hemoglobin 13.2 L Oxyhemoglobin 89.6 L Sodium Potassium 5.1 H Chloride Carbon Dioxide BUN Creatinine Glucose 102 H POC Glucose Calcium Phosphorus AST 48 H ALT 64 H Ammonia 14.0 L Albumin 2.7 L 02/20/22 02/20/22 02/23/22 04:59 04:59 06:29 WBC 11.4 H RBC Hgb Hct MCV 103 H MCH 33 H MCHC RDW 16.5 H Lymph % (Auto) 5.5 L [place] % (Auto) 12.1 H Lymph # (Auto) 0.6 L [place] # (Auto) 1.4 H Seg Neutrophils % 81.4 H Seg Neuts % (Manual) Lymphocytes % (Manual) Seg Neutrophils # 9.2 H Seg Neutrophils # Man Lymphocytes # (Manual) PT INR ABG pH ABG pO2 ABG HCO3 ABG O2 Saturation ABG Base Excess ABG Hemoglobin Oxyhemoglobin Sodium Potassium Chloride Carbon Dioxide BUN Creatinine Glucose POC Glucose 113 H Calcium 8.2 L Phosphorus AST ALT Ammonia Albumin 02/23/22 02/23/22 02/24/22 11:22 16:10 00:02 WBC RBC Hgb Hct MCV MCH MCHC RDW Lymph % (Auto) [place] % (Auto) Lymph # (Auto) [place] # (Auto) Seg Neutrophils % Seg Neuts % (Manual) Lymphocytes % (Manual) Seg Neutrophils # Seg Neutrophils # Man Lymphocytes # (Manual) PT INR ABG pH ABG pO2 ABG HCO3 ABG O2 Saturation ABG Base Excess ABG Hemoglobin Oxyhemoglobin Sodium Potassium Chloride Carbon Dioxide BUN Creatinine Glucose POC Glucose 108 H 115 H 109 H Calcium Phosphorus AST ALT Ammonia Albumin 02/24/22 02/24/22 02/24/22 11:05 11:05 13:20 WBC RBC 3.55 L Hgb Hct MCV 100 H MCH 34 H MCHC RDW 15.6 H Lymph % (Auto) [place] % (Auto) Lymph # (Auto) [place] # (Auto) Seg Neutrophils % Seg Neuts % (Manual) Lymphocytes % (Manual) Seg Neutrophils # Seg Neutrophils # Man Lymphocytes # (Manual) PT INR ABG pH ABG pO2 ABG HCO3 ABG O2 Saturation ABG Base Excess ABG Hemoglobin Oxyhemoglobin Sodium 146 H Potassium 3.2 L D Chloride 108.4 H Carbon Dioxide BUN Creatinine 0.5 L Glucose POC Glucose 111 H Calcium 7.9 L Phosphorus 2.20 L AST ALT Ammonia Albumin 02/24/22 02/24/22 02/24/22 16:30 17:03 20:25 WBC RBC Hgb Hct MCV MCH MCHC RDW Lymph % (Auto) [place] % (Auto) Lymph # (Auto) [place] # (Auto) Seg Neutrophils % Seg Neuts % (Manual) Lymphocytes % (Manual) Seg Neutrophils # Seg Neutrophils # Man Lymphocytes # (Manual) PT INR ABG pH 7.319 L ABG pO2 65.3 L ABG HCO3 31.3 H ABG O2 Saturation 92.2 L ABG Base Excess 3.8 H ABG Hemoglobin 12.0 L Oxyhemoglobin 90.3 L Sodium Potassium Chloride 107.9 H Carbon Dioxide BUN 8 L Creatinine 0.4 L Glucose POC Glucose 108 H Calcium 7.6 L Phosphorus 4.60 H D AST ALT Ammonia Albumin 02/25/22 02/25/22 02/25/22 04:12 04:12 05:05 WBC RBC 3.07 L Hgb 10.2 L Hct 31.5 L MCV 103 H MCH 33 H MCHC RDW 15.6 H Lymph % (Auto) [place] % (Auto) Lymph # (Auto) [place] # (Auto) Seg Neutrophils % Seg Neuts % (Manual) Lymphocytes % (Manual) Seg Neutrophils # Seg Neutrophils # Man Lymphocytes # (Manual) PT INR ABG pH ABG pO2 ABG HCO3 32.5 H ABG O2 Saturation ABG Base Excess 5.6 H ABG Hemoglobin 10.8 L Oxyhemoglobin 94.8 L Sodium Potassium 3.5 L Chloride 107.7 H Carbon Dioxide BUN Creatinine 0.5 L Glucose POC Glucose Calcium 7.0 L Phosphorus AST ALT Ammonia Albumin 02/25/22 02/25/22 02/26/22 12:05 18:33 00:07 WBC RBC Hgb Hct MCV MCH MCHC RDW Lymph % (Auto) [place] % (Auto) Lymph # (Auto) [place] # (Auto) Seg Neutrophils % Seg Neuts % (Manual) Lymphocytes % (Manual) Seg Neutrophils # Seg Neutrophils # Man Lymphocytes # (Manual) PT INR ABG pH ABG pO2 ABG HCO3 ABG O2 Saturation ABG Base Excess ABG Hemoglobin Oxyhemoglobin Sodium Potassium Chloride Carbon Dioxide BUN Creatinine Glucose POC Glucose 127 H 125 H 114 H Calcium Phosphorus AST ALT Ammonia Albumin 02/26/22 02/26/22 02/26/22 03:30 04:42 11:34 WBC RBC Hgb Hct MCV MCH MCHC RDW Lymph % (Auto) [place] % (Auto) Lymph # (Auto) [place] # (Auto) Seg Neutrophils % Seg Neuts % (Manual) Lymphocytes % (Manual) Seg Neutrophils # Seg Neutrophils # Man Lymphocytes # (Manual) PT INR ABG pH ABG pO2 143.2 H ABG HCO3 33.2 H ABG O2 Saturation ABG Base Excess 6.5 H ABG Hemoglobin 9.4 L Oxyhemoglobin Sodium Potassium Chloride Carbon Dioxide 32 H BUN Creatinine 0.7 L Glucose POC Glucose 114 H Calcium 8.0 L Phosphorus AST ALT Ammonia Albumin 02/26/22 02/26/22 02/27/22 18:17 23:37 04:19 WBC 13.7 H RBC 2.78 L Hgb 9.3 L Hct 28.5 L MCV 103 H MCH 33 H MCHC RDW 16.3 H Lymph % (Auto) [place] % (Auto) Lymph # (Auto) [place] # (Auto) Seg Neutrophils % Seg Neuts % (Manual) Lymphocytes % (Manual) Seg Neutrophils # Seg Neutrophils # Man Lymphocytes # (Manual) PT INR ABG pH ABG pO2 ABG HCO3 ABG O2 Saturation ABG Base Excess ABG Hemoglobin Oxyhemoglobin Sodium Potassium Chloride Carbon Dioxide BUN Creatinine Glucose POC Glucose 111 H 117 H Calcium Phosphorus AST ALT Ammonia Albumin 02/27/22 02/27/22 02/27/22 04:19 04:35 05:27 WBC RBC Hgb Hct MCV MCH MCHC RDW Lymph % (Auto) [place] % (Auto) Lymph # (Auto) [place] # (Auto) Seg Neutrophils % Seg Neuts % (Manual) Lymphocytes % (Manual) Seg Neutrophils # Seg Neutrophils # Man Lymphocytes # (Manual) PT INR ABG pH ABG pO2 96.3 H ABG HCO3 34.9 H ABG O2 Saturation ABG Base Excess 8.1 H ABG Hemoglobin Oxyhemoglobin Sodium Potassium Chloride Carbon Dioxide 31 H BUN Creatinine 0.6 L Glucose 107 H POC Glucose 133 H Calcium 7.8 L Phosphorus AST ALT Ammonia Albumin 02/27/22 02/27/22 02/28/22 11:15 23:35 03:38 WBC 13.3 H RBC 3.05 L Hgb 10.2 L Hct 30.7 L MCV 101 H MCH 33 H MCHC RDW 16.1 H Lymph % (Auto) [place] % (Auto) Lymph # (Auto) [place] # (Auto) Seg Neutrophils % Seg Neuts % (Manual) Lymphocytes % (Manual) Seg Neutrophils # Seg Neutrophils # Man Lymphocytes # (Manual) PT INR ABG pH ABG pO2 ABG HCO3 ABG O2 Saturation ABG Base Excess ABG Hemoglobin Oxyhemoglobin Sodium Potassium Chloride Carbon Dioxide BUN Creatinine Glucose POC Glucose 129 H 122 H Calcium Phosphorus AST ALT Ammonia Albumin 02/28/22 02/28/22 02/28/22 04:50 05:30 09:30 WBC RBC Hgb Hct MCV MCH MCHC RDW Lymph % (Auto) [place] % (Auto) Lymph # (Auto) [place] # (Auto) Seg Neutrophils % Seg Neuts % (Manual) Lymphocytes % (Manual) Seg Neutrophils # Seg Neutrophils # Man Lymphocytes # (Manual) PT INR ABG pH 7.451 H 7.488 H ABG pO2 77.0 L ABG HCO3 37.1 H 34.6 H ABG O2 Saturation ABG Base Excess 11.5 H 10.1 H ABG Hemoglobin 10.1 L 10.0 L Oxyhemoglobin Sodium Potassium Chloride Carbon Dioxide BUN Creatinine Glucose POC Glucose 121 H Calcium Phosphorus AST ALT Ammonia Albumin 02/28/22 02/28/22 03/01/22 11:36 23:07 04:27 WBC 12.5 H RBC 2.85 L Hgb 9.5 L Hct 28.6 L MCV 101 H MCH 33 H MCHC RDW 15.7 H Lymph % (Auto) [place] % (Auto) Lymph # (Auto) [place] # (Auto) Seg Neutrophils % Seg Neuts % (Manual) Lymphocytes % (Manual) Seg Neutrophils # Seg Neutrophils # Man Lymphocytes # (Manual) PT INR ABG pH ABG pO2 ABG HCO3 ABG O2 Saturation ABG Base Excess ABG Hemoglobin Oxyhemoglobin Sodium Potassium Chloride Carbon Dioxide BUN Creatinine Glucose POC Glucose 112 H 107 H Calcium Phosphorus AST ALT Ammonia Albumin 03/01/22 03/01/22 03/01/22 04:27 05:05 11:29 WBC RBC Hgb Hct MCV MCH MCHC RDW Lymph % (Auto) [place] % (Auto) Lymph # (Auto) [place] # (Auto) Seg Neutrophils % Seg Neuts % (Manual) Lymphocytes % (Manual) Seg Neutrophils # Seg Neutrophils # Man Lymphocytes # (Manual) PT INR ABG pH ABG pO2 ABG HCO3 ABG O2 Saturation ABG Base Excess ABG Hemoglobin Oxyhemoglobin Sodium 147 H D Potassium Chloride Carbon Dioxide 34 H BUN Creatinine 0.6 L Glucose 128 H POC Glucose 119 H 121 H Calcium 7.9 L Phosphorus AST ALT Ammonia Albumin 03/01/22 03/01/22 03/02/22 16:15 23:57 05:18 WBC RBC Hgb Hct MCV MCH MCHC RDW Lymph % (Auto) [place] % (Auto) Lymph # (Auto) [place] # (Auto) Seg Neutrophils % Seg Neuts % (Manual) Lymphocytes % (Manual) Seg Neutrophils # Seg Neutrophils # Man Lymphocytes # (Manual) PT INR ABG pH ABG pO2 110.5 H ABG HCO3 33.0 H ABG O2 Saturation ABG Base Excess 7.4 H ABG Hemoglobin 8.6 L Oxyhemoglobin Sodium Potassium Chloride Carbon Dioxide BUN Creatinine Glucose POC Glucose 134 H 140 H Calcium Phosphorus AST ALT Ammonia Albumin 03/02/22 03/02/22 03/02/22 05:53 09:04 09:04 WBC 15.0 H RBC 3.00 L Hgb 9.7 L Hct 30.7 L MCV 102 H MCH MCHC RDW 16.6 H Lymph % (Auto) [place] % (Auto) Lymph # (Auto) [place] # (Auto) Seg Neutrophils % Seg Neuts % (Manual) Lymphocytes % (Manual) Seg Neutrophils # Seg Neutrophils # Man Lymphocytes # (Manual) PT INR ABG pH ABG pO2 ABG HCO3 ABG O2 Saturation ABG Base Excess ABG Hemoglobin Oxyhemoglobin Sodium Potassium Chloride Carbon Dioxide 31 H BUN Creatinine 0.6 L Glucose 157 H POC Glucose 158 H Calcium 7.9 L Phosphorus AST ALT Ammonia Albumin 03/02/22 03/02/22 03/02/22 11:36 16:25 23:17 WBC RBC Hgb Hct MCV MCH MCHC RDW Lymph % (Auto) [place] % (Auto) Lymph # (Auto) [place] # (Auto) Seg Neutrophils % Seg Neuts % (Manual) Lymphocytes % (Manual) Seg Neutrophils # Seg Neutrophils # Man Lymphocytes # (Manual) PT INR ABG pH ABG pO2 ABG HCO3 ABG O2 Saturation ABG Base Excess ABG Hemoglobin Oxyhemoglobin Sodium Potassium Chloride Carbon Dioxide BUN Creatinine Glucose POC Glucose 160 H 132 H 157 H Calcium Phosphorus AST ALT Ammonia Albumin 03/03/22 03/03/22 03/03/22 03:54 03:54 05:27 WBC 19.5 H RBC 2.79 L Hgb 9.0 L Hct 28.6 L MCV 102 H MCH MCHC RDW 16.2 H Lymph % (Auto) [place] % (Auto) Lymph # (Auto) [place] # (Auto) Seg Neutrophils % Seg Neuts % (Manual) 95.0 H Lymphocytes % (Manual) 3.0 L Seg Neutrophils # Seg Neutrophils # Man 18.5 H Lymphocytes # (Manual) 0.6 L PT INR ABG pH ABG pO2 ABG HCO3 ABG O2 Saturation ABG Base Excess ABG Hemoglobin Oxyhemoglobin Sodium Potassium Chloride Carbon Dioxide BUN Creatinine 0.6 L Glucose 130 H POC Glucose 149 H Calcium 8.1 L Phosphorus AST ALT Ammonia Albumin 03/03/22 03/03/22 03/04/22 11:13 17:30 00:02 WBC RBC Hgb Hct MCV MCH MCHC RDW Lymph % (Auto) [place] % (Auto) Lymph # (Auto) [place] # (Auto) Seg Neutrophils % Seg Neuts % (Manual) Lymphocytes % (Manual) Seg Neutrophils # Seg Neutrophils # Man Lymphocytes # (Manual) PT INR ABG pH ABG pO2 ABG HCO3 ABG O2 Saturation ABG Base Excess ABG Hemoglobin Oxyhemoglobin Sodium Potassium Chloride Carbon Dioxide BUN Creatinine Glucose POC Glucose 139 H 138 H 157 H Calcium Phosphorus AST ALT Ammonia Albumin 03/04/22 03/04/22 03/04/22 05:32 05:32 05:48 WBC 16.1 H RBC 2.81 L Hgb 9.3 L Hct 28.8 L MCV 102 H MCH 33 H MCHC RDW 16.7 H Lymph % (Auto) [place] % (Auto) Lymph # (Auto) [place] # (Auto) Seg Neutrophils % Seg Neuts % (Manual) Lymphocytes % (Manual) Seg Neutrophils # Seg Neutrophils # Man Lymphocytes # (Manual) PT INR ABG pH ABG pO2 ABG HCO3 ABG O2 Saturation ABG Base Excess ABG Hemoglobin Oxyhemoglobin Sodium Potassium Chloride Carbon Dioxide BUN Creatinine 0.7 L Glucose 135 H POC Glucose 145 H Calcium 8.3 L Phosphorus AST ALT Ammonia Albumin 03/04/22 03/04/22 03/05/22 11:34 16:29 00:28 WBC RBC Hgb Hct MCV MCH MCHC RDW Lymph % (Auto) [place] % (Auto) Lymph # (Auto) [place] # (Auto) Seg Neutrophils % Seg Neuts % (Manual) Lymphocytes % (Manual) Seg Neutrophils # Seg Neutrophils # Man Lymphocytes # (Manual) PT INR ABG pH ABG pO2 ABG HCO3 ABG O2 Saturation ABG Base Excess ABG Hemoglobin Oxyhemoglobin Sodium Potassium Chloride Carbon Dioxide BUN Creatinine Glucose POC Glucose 148 H 140 H 116 H Calcium Phosphorus AST ALT Ammonia Albumin 03/05/22 03/05/22 03/05/22 06:29 11:30 17:38 WBC RBC Hgb Hct MCV MCH MCHC RDW Lymph % (Auto) [place] % (Auto) Lymph # (Auto) [place] # (Auto) Seg Neutrophils % Seg Neuts % (Manual) Lymphocytes % (Manual) Seg Neutrophils # Seg Neutrophils # Man Lymphocytes # (Manual) PT INR ABG pH ABG pO2 ABG HCO3 ABG O2 Saturation ABG Base Excess ABG Hemoglobin Oxyhemoglobin Sodium Potassium Chloride Carbon Dioxide BUN Creatinine Glucose POC Glucose 114 H 114 H 117 H Calcium Phosphorus AST ALT Ammonia Albumin 03/06/22 03/06/22 03/06/22 04:17 04:17 06:06 WBC 13.4 H RBC 2.85 L Hgb 9.4 L Hct 29.0 L MCV 102 H MCH 33 H MCHC RDW 16.4 H Lymph % (Auto) [place] % (Auto) Lymph # (Auto) [place] # (Auto) Seg Neutrophils % Seg Neuts % (Manual) Lymphocytes % (Manual) Seg Neutrophils # Seg Neutrophils # Man Lymphocytes # (Manual) PT INR ABG pH ABG pO2 ABG HCO3 ABG O2 Saturation ABG Base Excess ABG Hemoglobin Oxyhemoglobin Sodium Potassium 3.5 L Chloride Carbon Dioxide 31 H BUN Creatinine 0.6 L Glucose 101 H POC Glucose 106 H Calcium 7.7 L Phosphorus 2.00 L AST ALT Ammonia Albumin 03/06/22 03/06/22 03/07/22 18:04 23:50 05:14 WBC RBC Hgb Hct MCV MCH MCHC RDW Lymph % (Auto) [place] % (Auto) Lymph # (Auto) [place] # (Auto) Seg Neutrophils % Seg Neuts % (Manual) Lymphocytes % (Manual) Seg Neutrophils # Seg Neutrophils # Man Lymphocytes # (Manual) PT INR ABG pH ABG pO2 ABG HCO3 ABG O2 Saturation ABG Base Excess ABG Hemoglobin Oxyhemoglobin Sodium Potassium Chloride Carbon Dioxide BUN Creatinine Glucose POC Glucose 108 H 115 H 116 H Calcium Phosphorus AST ALT Ammonia Albumin 03/07/22 03/07/22 03/08/22 11:42 18:13 04:34 WBC RBC 2.86 L Hgb 9.2 L Hct 29.3 L MCV 103 H MCH MCHC 31 L RDW 16.9 H Lymph % (Auto) [place] % (Auto) Lymph # (Auto) [place] # (Auto) Seg Neutrophils % Seg Neuts % (Manual) Lymphocytes % (Manual) Seg Neutrophils # Seg Neutrophils # Man Lymphocytes # (Manual) PT INR ABG pH ABG pO2 ABG HCO3 ABG O2 Saturation ABG Base Excess ABG Hemoglobin Oxyhemoglobin Sodium Potassium Chloride Carbon Dioxide BUN Creatinine Glucose POC Glucose 123 H 109 H Calcium Phosphorus AST ALT Ammonia Albumin 03/08/22 03/08/22 03/08/22 04:34 11:29 16:34 WBC RBC Hgb Hct MCV MCH MCHC RDW Lymph % (Auto) [place] % (Auto) Lymph # (Auto) [place] # (Auto) Seg Neutrophils % Seg Neuts % (Manual) Lymphocytes % (Manual) Seg Neutrophils # Seg Neutrophils # Man Lymphocytes # (Manual) PT INR ABG pH ABG pO2 ABG HCO3 ABG O2 Saturation ABG Base Excess ABG Hemoglobin Oxyhemoglobin Sodium Potassium Chloride Carbon Dioxide 33 H BUN Creatinine 0.5 L Glucose 109 H POC Glucose 117 H 109 H Calcium 7.6 L Phosphorus AST ALT Ammonia Albumin 03/08/22 03/09/22 03/10/22 23:56 11:15 03:57 WBC RBC 2.99 L Hgb 9.9 L Hct 30.3 L MCV 102 H MCH 33 H MCHC RDW 16.8 H Lymph % (Auto) 13.3 L [place] % (Auto) 12.5 H Lymph # (Auto) [place] # (Auto) 1.3 H Seg Neutrophils % 72.4 H Seg Neuts % (Manual) Lymphocytes % (Manual) Seg Neutrophils # Seg Neutrophils # Man Lymphocytes # (Manual) PT INR ABG pH ABG pO2 ABG HCO3 ABG O2 Saturation ABG Base Excess ABG Hemoglobin Oxyhemoglobin Sodium Potassium Chloride Carbon Dioxide BUN Creatinine Glucose POC Glucose 106 H 110 H Calcium Phosphorus AST ALT Ammonia Albumin 03/10/22 03/10/22 03/10/22 03:57 04:50 16:04 WBC RBC Hgb Hct MCV MCH MCHC RDW Lymph % (Auto) [place] % (Auto) Lymph # (Auto) [place] # (Auto) Seg Neutrophils % Seg Neuts % (Manual) Lymphocytes % (Manual) Seg Neutrophils # Seg Neutrophils # Man Lymphocytes # (Manual) PT INR ABG pH 7.465 H ABG pO2 ABG HCO3 31.9 H ABG O2 Saturation ABG Base Excess 7.3 H ABG Hemoglobin 11.0 L Oxyhemoglobin Sodium Potassium 3.4 L Chloride Carbon Dioxide BUN Creatinine 0.6 L Glucose POC Glucose 115 H Calcium 8.1 L Phosphorus AST ALT Ammonia Albumin 1.9 L 03/11/22 03/11/22 03/11/22 04:02 04:02 04:02 WBC 12.0 H RBC 2.81 L Hgb 9.2 L Hct 29.1 L MCV 103 H MCH 33 H MCHC RDW 17.5 H Lymph % (Auto) [place] % (Auto) Lymph # (Auto) [place] # (Auto) Seg Neutrophils % Seg Neuts % (Manual) Lymphocytes % (Manual) Seg Neutrophils # Seg Neutrophils # Man Lymphocytes # (Manual) PT 16.2 H INR 1.16 H ABG pH ABG pO2 ABG HCO3 ABG O2 Saturation ABG Base Excess ABG Hemoglobin Oxyhemoglobin Sodium Potassium Chloride Carbon Dioxide BUN Creatinine 0.5 L Glucose 104 H POC Glucose Calcium 7.9 L Phosphorus AST ALT Ammonia Albumin 03/11/22 03/11/22 03/11/22 05:10 11:07 16:32 WBC RBC Hgb Hct MCV MCH MCHC RDW Lymph % (Auto) [place] % (Auto) Lymph # (Auto) [place] # (Auto) Seg Neutrophils % Seg Neuts % (Manual) Lymphocytes % (Manual) Seg Neutrophils # Seg Neutrophils # Man Lymphocytes # (Manual) PT INR ABG pH 7.476 H ABG pO2 ABG HCO3 29.7 H ABG O2 Saturation ABG Base Excess 5.7 H ABG Hemoglobin 9.1 L Oxyhemoglobin Sodium Potassium Chloride Carbon Dioxide BUN Creatinine Glucose POC Glucose 108 H 121 H Calcium Phosphorus AST ALT Ammonia Albumin 03/12/22 03/13/22 03/13/22 05:51 06:08 12:02 WBC RBC 2.73 L Hgb 9.0 L Hct 27.5 L MCV 101 H MCH 33 H MCHC RDW 17.2 H Lymph % (Auto) [place] % (Auto) Lymph # (Auto) [place] # (Auto) Seg Neutrophils % Seg Neuts % (Manual) Lymphocytes % (Manual) Seg Neutrophils # Seg Neutrophils # Man Lymphocytes # (Manual) PT INR ABG pH ABG pO2 ABG HCO3 ABG O2 Saturation ABG Base Excess ABG Hemoglobin Oxyhemoglobin Sodium Potassium Chloride Carbon Dioxide BUN Creatinine Glucose POC Glucose 116 H 111 H Calcium Phosphorus AST ALT Ammonia Albumin 03/13/22 03/13/22 03/14/22 12:48 18:17 03:58 WBC RBC 2.97 L Hgb 9.7 L Hct 30.0 L MCV 101 H MCH 33 H MCHC RDW 16.7 H Lymph % (Auto) [place] % (Auto) Lymph # (Auto) [place] # (Auto) Seg Neutrophils % Seg Neuts % (Manual) Lymphocytes % (Manual) Seg Neutrophils # Seg Neutrophils # Man Lymphocytes # (Manual) PT INR ABG pH ABG pO2 ABG HCO3 ABG O2 Saturation ABG Base Excess ABG Hemoglobin Oxyhemoglobin Sodium Potassium Chloride Carbon Dioxide BUN Creatinine Glucose POC Glucose 125 H 114 H Calcium Phosphorus AST ALT Ammonia Albumin 03/14/22 03/14/22 03/14/22 03:58 13:01 16:41 WBC RBC Hgb Hct MCV MCH MCHC RDW Lymph % (Auto) [place] % (Auto) Lymph # (Auto) [place] # (Auto) Seg Neutrophils % Seg Neuts % (Manual) Lymphocytes % (Manual) Seg Neutrophils # Seg Neutrophils # Man Lymphocytes # (Manual) PT INR ABG pH ABG pO2 ABG HCO3 ABG O2 Saturation ABG Base Excess ABG Hemoglobin Oxyhemoglobin Sodium Potassium Chloride Carbon Dioxide BUN Creatinine 0.6 L Glucose POC Glucose 118 H 109 H Calcium 8.2 L Phosphorus AST ALT Ammonia Albumin 03/16/22 03/16/22 03/17/22 05:28 05:28 23:19 WBC RBC 2.81 L Hgb 9.1 L Hct 27.8 L MCV 99 H MCH MCHC RDW 17.0 H Lymph % (Auto) [place] % (Auto) Lymph # (Auto) [place] # (Auto) Seg Neutrophils % Seg Neuts % (Manual) Lymphocytes % (Manual) Seg Neutrophils # Seg Neutrophils # Man Lymphocytes # (Manual) PT INR ABG pH ABG pO2 ABG HCO3 ABG O2 Saturation ABG Base Excess ABG Hemoglobin Oxyhemoglobin Sodium Potassium Chloride Carbon Dioxide BUN Creatinine 0.5 L Glucose POC Glucose 113 H Calcium 8.2 L Phosphorus AST ALT Ammonia Albumin 03/20/22 03/20/22 03/20/22 04:09 04:09 17:22 WBC RBC 2.90 L Hgb 9.6 L Hct 28.9 L MCV 100 H MCH 33 H MCHC RDW 17.4 H Lymph % (Auto) [place] % (Auto) Lymph # (Auto) [place] # (Auto) Seg Neutrophils % Seg Neuts % (Manual) Lymphocytes % (Manual) Seg Neutrophils # Seg Neutrophils # Man Lymphocytes # (Manual) PT INR ABG pH ABG pO2 ABG HCO3 ABG O2 Saturation ABG Base Excess ABG Hemoglobin Oxyhemoglobin Sodium Potassium Chloride Carbon Dioxide BUN Creatinine 0.6 L Glucose POC Glucose 110 H Calcium 8.2 L Phosphorus AST ALT Ammonia Albumin
[2022-03-21] MEDS: PRAVASTATIN 40 MG TAB FEEDTUBE SCH (21:38)
[2022-03-22] MEDS: ALBUTEROL 2.5 MG/3 ML NEBU IH SCH ×4 (02:51→19:15)
[2022-03-22] MEDS: HEPARIN 5,000 UNIT/1 ML VIAL SUB-Q SCH ×3 (05:45→21:02)
[2022-03-22] MEDS: LEVOTHYROXINE 25 MCG TAB FEEDTUBE SCH (05:45)
[2022-03-22] MEDS: FAMOTIDINE 20 MG TAB FEEDTUBE SCH ×2 (09:08→21:02)
[2022-03-22] MEDS: SENNOSIDES/DOCUSATE SODIUM 8.6/50 MG TAB FEEDTUBE SCH ×2 (09:08→21:02)
[2022-03-22] MEDS: MIDODRINE 2.5 MG TAB FEEDTUBE SCH ×3 (09:08→17:29)
[2022-03-22] MEDS: levETIRAcetam 500 MG/5 ML ORAL LIQD FEEDTUBE SCH ×2 (09:08→21:02)
--- NOTE | 2022-03-22 12:29 | Progress Note ---
<KEATON GOLD - Last Filed: 03/22/22 19:09> Assessment and Plan Assessment and plan: This is a 51-year-old male with HTN, seizure disorder, Down syndrome, HLD, partial blindness admitted with aspiration pneumonia, probable bronchogenic carcinoma, acute hypoxic respiratory failure and acute encephalopathy Hospital course to date: 02/19/2022. Consult pulmonary for further evaluation and possible bronchoscopy. I suspect patient has component of aspiration pneumonia as well. We will obtain a speech therapy evaluation for swallowing and start empiric antibiotics. Continue O2 supplementation to maintain sats greater than 92%. 02/20/2022. Pulmonary feels that the abnormality seen on CT scan is highly unlikely for a mass given negative chest x-ray 1 month ago and no risk factors. Etiology is likely secondary to aspiration from possibly a foreign body most likely food with atelectasis of the right lower lobe. Bronchoscopy is needed in the case to evaluate to see if lung mass is there vs foreign body, but at this time not able to do because no identifiable person that is able to give consent. Continue aspiration precautions and continue speech therapy evaluation for swallowing. Keep n.p.o. for now 02/21/2022. Patient remains NPO. Consider DHT placement. Follow-up with speech therapy evaluation. Pulmonology to consider bronchoscopy if able to obtain consent. Continue IV antibiotics for aspiration pneumonia 02/22/2022. Patient remains NPO. Consider DHT placement. Follow-up with speech therapy evaluation. Pulmonology to consider bronchoscopy if able to obtain consent. Continue IV antibiotics for aspiration pneumonia 02/23/2022. DHT placed yesterday. TF initiated for nutritional support. Patient currently with strict NPO. Aspiration precautions. Pulmonology to consider bronchoscopy if able to obtain consent. Continue IV antibiotics for aspiration pneumonia 02/24: Patient was transferred to the ICU for further monitoring. This morning patient remained on high flow nasal cannula on 40 L/100% and despite repeated nasotracheal suctioning patient SPO2 remained in the 80s. Patient was placed on nonrebreather and SPO2 increased to upper 80s. Patient was subsequently intubated by anesthesia. Started on sedation. 02/25: Patient remains sedated on fentanyl, potassium and magnesium repleted. IV fluids and amlodipine discontinued. Possible bronchoscopy tomorrow. 02/26: Patient had a bronchoscopy today which showed mucus and no endobronchial lesions or masses. FiO2 was increased to 100 during and postprocedure weaning as tolerated. Repeat CXR is much improved after bronc. Given 1 L LR bolus due to hypotension. No acute events reported overnight. 02/27: Decreased PEEP, will repeat CT of chest. no acute changes overnight. 02/28: Patient was extubated today however had to be be intubated shortly after. Patient ETT looked mispositioned on x-ray and Dr. Alonzo did do a bedside bronc. Patient was briefly hypotensive and on Levophed postintubation however Levophed was quickly titrated off and patient did not require central line. No acute events reported overnight. Will obtain CT neck d/t difficulty intubating. Ethi committee consulted. 03/04: Overnight patient was hypotensive and started on IVF. Patient started on steroids as no air leak noted and hypotension and given 2 L LR 03/05: Overnight patient received bolus per RN report, no orders seen. Continue supportive care 03/03: SB on the monitor, HR as low as 37, VSS. Will continue to monitor for now. [facility]. Continue daily air leak per [facility] 03/04: MAIDA overnight. Remains stable on the vent. [facility]ing [facility] and [facility]. Continue current supportive measures 03/05: MAIDA overnight. [facility]ing [facility] for [facility] and PEG. Midodrine held yesterday, HR improved. Continue current supportive measures. Daily PSV trial as tolerated per [facility] 03/06: Remains stable on the vent. Continue current supportive measures, daily PSV trial per [facility]. Awaiting on desicion for possible trach and PEG. 03/07: MAIDA overnight, remains stable. Continue daily PSV trial as tolerated. Awaiting on desicion for possible trach and PEG. 03/08: Patient failed PSV trial this am due to tachycardia and increase RR. Continue supportive measures and daily PSV trial as tolerated. Possible discussion with [facility] and [facility] on Thursday in regards to medical necessity, may need to consider two physician consent if no one is able to claim responsibility for this patient. 03/09: MAIDA overnight. Continue current supportive measures and daily PSV trail as tolerated. Awaiting on desicion for possible trach and PEG, discussion with Ethics possibly tomorrow per [facility]. 03/10: no acute events overnight, PSV today. replete potassium. 03/11: No acute events reported overnight, patient failed PSV yesterday and will repeat today. Hospital to start guardianship process. 03/12: No acute events overnight. PSV today 03/13: Patient given 500ml normal saline and started on midodrine for h ypotension. No acute events reported overnight. Failed pressure support again this morning. 03/14: No acute events reported overnight, patient blood pressure seems better therefore midodrine discontinued. RT placed on CPAP need lasted for couple hours. Will remove summers 03/15: Midodrine was restarted yesterday evening for hypotension, Summers catheter not removed due to sacral ulcer and history of retention. Unable to crush Flomax and patient will not tolerate doxazosin given hypotension. Given LR bolus this morning. If blood pressure continues to be borderline after bolus, we will adjust management as needed. CPAP as tolerated 03/16: No acute events reported overnight, patient placed on CPAP trial this morning which he failed. 03/17: RT attempted PSV which he failed again today. No acute events reported overnight. 03/18: Awaiting ethic committee's decision on Trach/PEG. Patient tolerated PSV trial for over 3 hrs today, continue daily PSV trial as tolerated. 03/19: MAIDA overnight. Continue current supportive measures. Daily PSV trial as tolerated. Awaiting on desicion for possible trach and PEG. 03/20: MAIDA overnight. Daily PSV trial as tolerated. Awaiting decision on guardian ship for trach and PEG. 03/21: Remains stable, condition unchanged. Continue supportive measures and daily PSV trial as tolerated. 03/22: MAIDA overnight. Continue current supportive measures. Daily PSV trial as tolerated Neuro: Acute encephalopathy, h/o seizure disorder, Down syndrome, partial blindness -Intubated and off sedation -Reorientation as needed -Maintain sleep-wake cycle -aspiration/seizure precautions -As needed analgesia -CT head showed no acute abnormality -Continue Keppra Cardiac: Hypotension, h/o HTN, HLD -Cardiology consulted, appreciate recommendations -Blood pressure monitoring per protocol -d/c amlodipine -On PO Midodrine for hypotension Respiratory: Acute hypoxic respiratory failure, r/o bronchogenic carcinoma -[facility] consulted, appreciate recommendations -Intubated on 02/24 with a 8.0 at 23 at the lips but extubated 02/28 -reintubated 02/28 with 8.0 OETT -Vent settings: AC rate 14, TV 360, PEEP 6, FO2 30% -See RT notes for titration -VAP bundle -SPO2 monitoring -02/18 CTA chest showed no evidence of pulmonary embolism, suspected bronchogenic carcinoma with associated obstruction of the right lower lobe proximal bronchus segment, 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 adenopathy and suspected to left lower lobe metastatic nodule -02/26 Bronch->mucous, no lesion noted -02/27 CT chest showed right mainstem bronchus patent with small amount of interval bronchial fluid which may be mucus (this may account for the appearance of the prior CTA chest fluid-filled airway rather than entering bronchial lesion), previously seen complete left lower lobe since related to bronchial occlusion has significantly improved, there is persistent compressive atelectasis in the right lower lung secondary to the pleural effusion, bilateral pleural effusions, right lung pneumonia -CT neck showed no acute changes - IV Steroids stopped GI: Moderate protein calorie malnutrition -PPI -NTR consulted for tube feedings -BR: Senokot S : Hypernatremia (resolved) -FWF 200 ml q4 hr -Monitor intake and output -Renally dose medications -Avoid nephrotoxic medications -Trend BMP ID: Aspiration PNA Sacral Decubitus Ulcer (POA) -S/p Rocephin for 5 days (02/19-02/24) -Monitor WBC and temperature curve -Wound care consulted Endo: NAD -Avoid hypoglycemia -Accu-Cheks every 6 -Avoid hypoglycemia Heme: NAD -Trend CBC -Transfuse hemoglobin less than 7 -SCDs to BLE while in bed The high probability of a clinically significant, sudden or life threatening deterioration of the [resp] system(s) required my full and direct attention, intervention and personal management. The aggregate critical care time was [60] minutes. This time is in addition to time spent performing reported procedures but includes the following: [x] Data Review and interpretation [x] Patient assessment and monitoring of vital signs [x] Documentation [x] Medication orders and management Disposition Plan: ICU Total Time Spent with Patient (Minutes): 60 History Interval history: Patient seen and examined at the bedside. Remains stable on low vent setting, not on any sedation. Open eyes spontaneously and move extremities but does not follow any commands. SR on the monitor this am, VSS. MAIDA overnight Hospitalist Physical - Physical exam Narrative exam: General appearance: Present: no acute distress, well-nourished, obese - EENT Eyes: Present: PERRL - Neck Neck: Present: normal ROM - Respiratory Respiratory effort: normal Respiratory: bilateral: rhonchi - Cardiovascular Rhythm: regular Heart Sounds: Present: S1 & S2 - Extremities Extremities: no ischemia, pulses intact, pulses symmetrical Extremity abnormal: edema - Peripheral Assessment Generalized Edema Type: Non-pitting Edema Degree: 1+ Capillary Refill: < 3 seconds Skin Temperature: Warm Peripheral Pulses: within normal limits - Abdominal General gastrointestinal: soft, non-distended, normal bowel sounds - Integumentary Integumentary: Present: warm, dry - Psychiatric Psychiatric: other (Intubated, unresponsive. Not on any sedations) - Neurologic Neurologic: moves all extremities, other (Intubated, unresponsive. Not on any sedations) - Allied Health Allied health notes reviewed: nursing, case management - Constitutional Vitals: Temp Pulse Resp BP Pulse Ox 98.9 F 77 12 110/54 99 03/22/22 12:00 03/22/22 12:00 03/22/22 12:00 03/22/22 12:00 03/22/22 12:00 HEART Score - HEART Score Troponin: Troponin T < 0.010 ng/mL (0.00-0.029) 02/18/22 21:02 Results - Labs CBC & Chem 7: 03/20/22 04:09 03/20/22 04:09 Labs: Laboratory Last Values WBC 6.0 K/mm3 (4.5-11.0) 03/20/22 04:09 RBC 2.90 M/mm3 (3.65-5.03) L 03/20/22 04:09 Hgb 9.6 gm/dl (11.8-15.2) L 03/20/22 04:09 Hct 28.9 % (35.5-45.6) L 03/20/22 04:09 MCV 100 fl (84-94) H 03/20/22 04:09 MCH 33 pg (28-32) H 03/20/22 04:09 MCHC 33 % (32-34) 03/20/22 04:09 RDW 17.4 % (13.2-15.2) H 03/20/22 04:09 Plt Count 339 K/mm3 (140-440) 03/20/22 04:09 Lymph % (Auto) 13.3 % (13.4-35.0) L 03/10/22 03:57 Starke % (Auto) 12.5 % (0.0-7.3) H 03/10/22 03:57 Eos % (Auto) 1.4 % (0.0-4.3) 03/10/22 03:57 Baso % (Auto) 0.4 % (0.0-1.8) 03/10/22 03:57 Lymph # (Auto) 1.3 K/mm3 (1.2-5.4) 03/10/22 03:57 Starke # (Auto) 1.3 K/mm3 (0.0-0.8) H 03/10/22 03:57 Eos # (Auto) 0.1 K/mm3 (0.0-0.4) 03/10/22 03:57 Baso # (Auto) 0.0 K/mm3 (0.0-0.1) 03/10/22 03:57 Add Manual Diff Complete 03/03/22 03:54 Total Counted 100 03/03/22 03:54 Seg Neutrophils % 72.4 % (40.0-70.0) H 03/10/22 03:57 Seg Neuts % (Manual) 95.0 % (40.0-70.0) H 03/03/22 03:54 Band Neutrophils % 0 % 03/03/22 03:54 Lymphocytes % (Manual) 3.0 % (13.4-35.0) L 03/03/22 03:54 Reactive Lymphs % (Man) 0 % 03/03/22 03:54 Monocytes % (Manual) 2.0 % (0.0-7.3) 03/03/22 03:54 Eosinophils % (Manual) 0 % (0.0-4.3) 03/03/22 03:54 Basophils % (Manual) 0 % (0.0-1.8) 03/03/22 03:54 Metamyelocytes % 0 % 03/03/22 03:54 Myelocytes % 0 % 03/03/22 03:54 Promyelocytes % 0 % 03/03/22 03:54 Blast Cells % 0 % 03/03/22 03:54 Nucleated RBC % Not Reportable 03/03/22 03:54 Seg Neutrophils # 7.4 K/mm3 (1.8-7.7) 03/10/22 03:57 Seg Neutrophils # Man 18.5 K/mm3 (1.8-7.7) H 03/03/22 03:54 Band Neutrophils # 0.0 K/mm3 03/03/22 03:54 Lymphocytes # (Manual) 0.6 K/mm3 (1.2-5.4) L 03/03/22 03:54 Abs React Lymphs (Man) 0.0 K/mm3 03/03/22 03:54 Monocytes # (Manual) 0.4 K/mm3 (0.0-0.8) 03/03/22 03:54 Eosinophils # (Manual) 0.0 K/mm3 (0.0-0.4) 03/03/22 03:54 Basophils # (Manual) 0.0 K/mm3 (0.0-0.1) 03/03/22 03:54 Metamyelocytes # 0.0 K/mm3 03/03/22 03:54 Myelocytes # 0.0 K/mm3 03/03/22 03:54 Promyelocytes # 0.0 K/mm3 03/03/22 03:54 Blast Cells # 0.0 K/mm3 03/03/22 03:54 WBC Morphology Not Reportable 03/03/22 03:54 Hypersegmented Neuts Not Reportable 03/03/22 03:54 Hyposegmented Neuts Not Reportable 03/03/22 03:54 Hypogranular Neuts Not Reportable 03/03/22 03:54 Smudge Cells Not Reportable 03/03/22 03:54 Toxic Granulation Not Reportable 03/03/22 03:54 Toxic Vacuolation Not Reportable 03/03/22 03:54 Dohle Bodies Not Reportable 03/03/22 03:54 Pelger-Huet Anomaly Not Reportable 03/03/22 03:54 Lakshmi Rods Not Reportable 03/03/22 03:54 Platelet Estimate Consistent w auto 03/03/22 03:54 Clumped Platelets Not Reportable 03/03/22 03:54 Plt Clumps, EDTA Not Reportable 03/03/22 03:54 Large Platelets Not Reportable 03/03/22 03:54 Giant Platelets Not Reportable 03/03/22 03:54 Platelet Satelliting Not Reportable 03/03/22 03:54 Plt Morphology Comment Not Reportable 03/03/22 03:54 RBC Morphology Not Reportable 03/03/22 03:54 Dimorphic RBCs Not Reportable 03/03/22 03:54 Polychromasia Not Reportable 03/03/22 03:54 Hypochromasia Not Reportable 03/03/22 03:54 Poikilocytosis Not Reportable 03/03/22 03:54 Anisocytosis 1+ 03/03/22 03:54 Microcytosis Not Reportable 03/03/22 03:54 Macrocytosis Not Reportable 03/03/22 03:54 Spherocytes Not Reportable 03/03/22 03:54 Pappenheimer Bodies Not Reportable 03/03/22 03:54 Sickle Cells Not Reportable 03/03/22 03:54 Target Cells Not Reportable 03/03/22 03:54 Tear Drop Cells Not Reportable 03/03/22 03:54 Ovalocytes Not Reportable 03/03/22 03:54 Helmet Cells Not Reportable 03/03/22 03:54 Orellana-Mcgrew Bodies Not Reportable 03/03/22 03:54 [place] Rings Not Reportable 03/03/22 03:54 [place] Cells Not Reportable 03/03/22 03:54 Bite Cells Not Reportable 03/03/22 03:54 Crenated Cell Not Reportable 03/03/22 03:54 Elliptocytes Not Reportable 03/03/22 03:54 Acanthocytes (Spur) Not Reportable 03/03/22 03:54 Rouleaux Not Reportable 03/03/22 03:54 Hemoglobin C Crystals Not Reportable 03/03/22 03:54 Schistocytes Not Reportable 03/03/22 03:54 Malaria parasites Not Reportable 03/03/22 03:54 Cash Bodies Not Reportable 03/03/22 03:54 Hem Pathologist Commnt No 03/03/22 03:54 PT 16.2 Sec. (12.2-14.9) H 03/11/22 04:02 INR 1.16 (0.87-1.13) H 03/11/22 04:02 ABG pH 7.476 pH Units (7.350-7.450) H 03/11/22 05:10 ABG pCO2 41.2 mm Hg 03/11/22 05:10 ABG pO2 84.0 mm Hg (80.0-90.0) 03/11/22 05:10 ABG HCO3 29.7 mmol/L (20.0-26.0) H 03/11/22 05:10 ABG O2 Saturation 97.1 % (95.0-99.0) 03/11/22 05:10 ABG O2 Content 12.3 (0.0-44) 03/11/22 05:10 ABG Base Excess 5.7 mmol/L (-2.0-3.0) H 03/11/22 05:10 ABG Hemoglobin 9.1 gm/dl (14.0-18.0) L 03/11/22 05:10 ABG Carboxyhemoglobin 1.7 % (0.0-5.0) 03/11/22 05:10 ABG Methemoglobin 0.5 % (0.0-1.5) 03/11/22 05:10 Oxyhemoglobin 95.0 % (95.0-99.0) 03/11/22 05:10 FiO2 30 % 03/11/22 05:10 Sodium 140 mmol/L (137-145) 03/20/22 04:09 Potassium 4.4 mmol/L (3.6-5.0) 03/20/22 04:09 Chloride 101.7 mmol/L (98-107) 03/20/22 04:09 Carbon Dioxide 30 mmol/L (22-30) 03/20/22 04:09 Anion Gap 13 mmol/L 03/20/22 04:09 BUN 18 mg/dL (9-20) 03/20/22 04:09 Creatinine 0.6 mg/dL (0.8-1.3) L 03/20/22 04:09 Estimated GFR > 60 ml/min 03/20/22 04:09 BUN/Creatinine Ratio 30 % 03/20/22 04:09 Glucose 94 mg/dL (75-100) 03/20/22 04:09 POC Glucose 93 mg/dL (70-105) 03/22/22 05:11 Lactic Acid 1.20 mmol/L (0.7-2.0) 02/18/22 21:02 Calcium 8.2 mg/dL (8.4-10.2) L 03/20/22 04:09 Phosphorus 3.50 mg/dL (2.5-4.5) 03/20/22 04:09 Magnesium 2.00 mg/dL (1.7-2.3) 03/20/22 04:09 Total Bilirubin 0.30 mg/dL (0.1-1.2) 03/10/22 03:57 AST 17 units/L (5-40) 03/10/22 03:57 ALT 18 units/L (7-56) 03/10/22 03:57 Alkaline Phosphatase 89 units/L (35-129) 03/10/22 03:57 Ammonia 14.0 umol/L (25-60) L 02/18/22 23:22 Troponin T < 0.010 ng/mL (0.00-0.029) 02/18/22 21:02 Total Protein 6.6 g/dL (6.3-8.2) 03/10/22 03:57 Albumin 1.9 g/dL (3.9-5) L 03/10/22 03:57 Albumin/Globulin Ratio 0.4 % 03/10/22 03:57 Urine Color Dark yellow (Yellow) 02/18/22 Unknown Urine Turbidity Clear (Clear) 02/18/22 Unknown Urine pH 7.0 (5.0-7.0) 02/18/22 Unknown Ur Specific [place] 1.015 (1.003-1.030) 02/18/22 Unknown Urine Protein <15 mg/dl mg/dL (Negative) 02/18/22 Unknown Urine Glucose (UA) Negative mg/dL (Negative) 02/18/22 Unknown Urine Ketones Negative mg/dL (Negative) 02/18/22 Unknown Urine Blood Trace (Negative) 02/18/22 Unknown Urine Nitrite Negative (Negative) 02/18/22 Unknown Urine Bilirubin Negative (Negative) 02/18/22 Unknown Urine Urobilinogen < 2.0 mg/dL (<2.0) 02/18/22 Unknown Ur Leukocyte Esterase Negative (Negative) 02/18/22 Unknown Urine WBC (Auto) 2.0 /HPF (0.0-6.0) 02/18/22 Unknown Urine RBC (Auto) 9.0 /HPF (0.0-6.0) 02/18/22 Unknown Urine Mucus Few /HPF 02/18/22 Unknown Urine Opiates Screen Negative 02/18/22 Unknown Urine Methadone Screen Negative 02/18/22 Unknown Ur Barbiturates Screen Negative 02/18/22 Unknown Ur Phencyclidine Scrn Negative 02/18/22 Unknown Ur Amphetamines Screen Negative 02/18/22 Unknown U Benzodiazepines Scrn Negative 02/18/22 Unknown Urine Cocaine Screen Negative 02/18/22 Unknown U Marijuana (THC) Screen Negative 02/18/22 Unknown Drugs of Abuse Note Disclamer 02/18/22 Unknown Plasma/Serum Alcohol < 0.01 % (0-0.07) 02/18/22 21:02 Summers/IV: Voiding Method Indwelling Catheter Active Medications - Current Medications Current Medications: Generic Name Dose Route Start Last Admin Trade Name Freq PRN Reason Stop Dose Admin Acetaminophen 650 mg 03/03/22 09:00 Acetaminophen 325 Mg/10.15 Ml Oral Liqd Unit Dose FEEDTUBE Q4H PRN Pain, Mild (1-3); TEMP > 100.4 Albuterol 2.5 mg 03/12/22 20:00 03/22/22 07:19 Albuterol 2.5 Mg/3 Ml Nebu IH 2.5 mg Q6HRT LAZARUS Administration Famotidine 20 mg 02/25/22 10:00 03/22/22 09:08 Famotidine 20 Mg Tab FEEDTUBE 20 mg BID LAZARUS Administration Heparin Sodium (Porcine) 5,000 unit 02/19/22 06:00 03/22/22 05:45 Heparin 5,000 Unit/1 Ml Vial SUB-Q 5,000 unit Q8HR LAZARUS Administration Hydrophilic Ointment 1 applic 02/24/22 15:05 Lip Therapy Vaseline TP Q2HR PRN Dry Lips Levetiracetam 500 mg 02/25/22 22:00 03/22/22 09:08 Levetiracetam 500 Mg/5 Ml Oral Liqd FEEDTUBE 500 mg BID LAZARUS Administration Levothyroxine Sodium 25 mcg 02/26/22 06:00 03/22/22 05:45 Levothyroxine 25 Mcg Tab FEEDTUBE 25 mcg QAM@0600 LAZARUS Administration Magnesium Hydroxide 30 ml 02/19/22 02:02 Magnesium Hydroxide (Mom) Oral Liqd Udc PO Q4H PRN Constipation Midodrine 2.5 mg 03/19/22 12:00 03/22/22 09:08 Midodrine 2.5 Mg Tab FEEDTUBE 2.5 mg TID@0800,1200,1600 LAZARUS Administration Multi-Ingred Cream/Lotion/Oil/Oint 1 applic 02/24/22 15:05 Mineral Oil/Petrolatum, White Ophth Oint 3.5 Gm OU Q4HR PRN Dry Eye(s) Ondansetron HCl 4 mg 02/19/22 02:02 Ondansetron 4 Mg/2 Ml Inj IV Q8H PRN Nausea And Vomiting Pravastatin Sodium 40 mg 02/25/22 22:00 03/21/22 21:38 Pravastatin 40 Mg Tab FEEDTUBE 40 mg QHS LAZARUS Administration Senna/Docusate Sodium 1 tab 02/24/22 22:00 03/22/22 09:08 Sennosides/Docusate Sodium 8.6/50 Mg Tab FEEDTUBE 1 tab BID LAZARUS Administration Sodium Chloride 10 ml 02/19/22 10:00 03/22/22 09:09 Sodium Chloride 0.9% 10 Ml Flush Syringe IV 10 ml BID LAZARUS Administration Sodium Chloride 10 ml 02/19/22 02:02 03/03/22 14:21 Sodium Chloride 0.9% 10 Ml Flush Syringe IV 10 ml PRN PRN Administration LINE FLUSH Nutrition/Malnutrition Assess - Dietary Evaluation Nutrition/Malnutrition Findings: Nutrition Notes Start: 02/19/22 14:29 Freq: Status: Active Protocol: Document 03/21/22 15:43 IVAN (Rec: 03/21/22 15:45 [email or web address] [id number]) Nutrition Notes Initial or Follow up Reassessment Current Diagnosis Hypertension,Respiratory Failure,Hyperlipidemia Other Pertinent Diagnosis Asp pneu, acute encephalopathy , seizure d/o, partial blindness Current Diet TF - Vital AF 1.2 at 50ml/hr Labs/Tests Reviewed Pertinent Medications Reviewed Height 5 ft 3 in Weight 63.2 kg [place] Body Weight (kg) 56.36 BMI 24.7 Weight Status Appropriate Subjective/Other Information Pt remains on vent support; still awaiting decision on guardianship for trach/PEG placement. Pt continues to tolerate TF at goal rate. Last BM was 03/18 per RN verbal report. Percent of energy/protein needs met: 90% energy 100% pro Burn Absent Trauma Absent #1 Nutrition Diagnosis Inadequate oral intake Diagnosis Progress(for reassessment Continues documentation) Is patient on ventilator? Yes Is Patient Ambulatory and/or Out of Bed No [place] [phone] [facility] Additional Notes Pro needs 1.2-2g/k-126g/ day Fluid needs 1ml/kcal Nutrition Intervention Nutrition Support: Continue Vital AF 1.2 at 50ml/ hr with 75ml water flush q4h. Kcal 1,440 Protein (gm) 90 Carbohydrates (gm) 133 Fat (gm) 65 Fluid (mL) 973 Fiber (gm) 6 Goal #1 TF tolerance Goal #2 TF to meet at least 75% energy and pro needs Follow-Up By: 03/28/22 Additional Comments F/U: stable TF, trach/PEG placement, vent status, wt, BM <JOAQUIN ROBIN - Last Filed: 03/23/22 07:33> Assessment and Plan Assessment and plan: I saw and evaluated the patient. I agree with the findings and the plan of care as documented in the Nurse Practitioner's~note, with the following corrections and additions. Hospitalist Physical - Constitutional Vitals: Temp Pulse Resp BP Pulse Ox 98.0 F 79 11 L 85/40 99 03/23/22 07:12 03/23/22 06:00 03/23/22 06:00 03/23/22 06:00 03/23/22 06:00 HEART Score - HEART Score Troponin: Troponin T < 0.010 ng/mL (0.00-0.029) 02/18/22 21:02 Results - Labs CBC & Chem 7: 03/20/22 04:09 03/20/22 04:09 Labs: Laboratory Last Values WBC 6.0 K/mm3 (4.5-11.0) 03/20/22 04:09 RBC 2.90 M/mm3 (3.65-5.03) L 03/20/22 04:09 Hgb 9.6 gm/dl (11.8-15.2) L 03/20/22 04:09 Hct 28.9 % (35.5-45.6) L 03/20/22 04:09 MCV 100 fl (84-94) H 03/20/22 04:09 MCH 33 pg (28-32) H 03/20/22 04:09 MCHC 33 % (32-34) 03/20/22 04:09 RDW 17.4 % (13.2-15.2) H 03/20/22 04:09 Plt Count 339 K/mm3 (140-440) 03/20/22 04:09 Lymph % (Auto) 13.3 % (13.4-35.0) L 03/10/22 03:57 Starke % (Auto) 12.5 % (0.0-7.3) H 03/10/22 03:57 Eos % (Auto) 1.4 % (0.0-4.3) 03/10/22 03:57 Baso % (Auto) 0.4 % (0.0-1.8) 03/10/22 03:57 Lymph # (Auto) 1.3 K/mm3 (1.2-5.4) 03/10/22 03:57 Starke # (Auto) 1.3 K/mm3 (0.0-0.8) H 03/10/22 03:57 Eos # (Auto) 0.1 K/mm3 (0.0-0.4) 03/10/22 03:57 Baso # (Auto) 0.0 K/mm3 (0.0-0.1) 03/10/22 03:57 Add Manual Diff Complete 03/03/22 03:54 Total Counted 100 03/03/22 03:54 Seg Neutrophils % 72.4 % (40.0-70.0) H 03/10/22 03:57 Seg Neuts % (Manual) 95.0 % (40.0-70.0) H 03/03/22 03:54 Band Neutrophils % 0 % 03/03/22 03:54 Lymphocytes % (Manual) 3.0 % (13.4-35.0) L 03/03/22 03:54 Reactive Lymphs % (Man) 0 % 03/03/22 03:54 Monocytes % (Manual) 2.0 % (0.0-7.3) 03/03/22 03:54 Eosinophils % (Manual) 0 % (0.0-4.3) 03/03/22 03:54 Basophils % (Manual) 0 % (0.0-1.8) 03/03/22 03:54 Metamyelocytes % 0 % 03/03/22 03:54 Myelocytes % 0 % 03/03/22 03:54 Promyelocytes % 0 % 03/03/22 03:54 Blast Cells % 0 % 03/03/22 03:54 Nucleated RBC % Not Reportable 03/03/22 03:54 Seg Neutrophils # 7.4 K/mm3 (1.8-7.7) 03/10/22 03:57 Seg Neutrophils # Man 18.5 K/mm3 (1.8-7.7) H 03/03/22 03:54 Band Neutrophils # 0.0 K/mm3 03/03/22 03:54 Lymphocytes # (Manual) 0.6 K/mm3 (1.2-5.4) L 03/03/22 03:54 Abs React Lymphs (Man) 0.0 K/mm3 03/03/22 03:54 Monocytes # (Manual) 0.4 K/mm3 (0.0-0.8) 03/03/22 03:54 Eosinophils # (Manual) 0.0 K/mm3 (0.0-0.4) 03/03/22 03:54 Basophils # (Manual) 0.0 K/mm3 (0.0-0.1) 03/03/22 03:54 Metamyelocytes # 0.0 K/mm3 03/03/22 03:54 Myelocytes # 0.0 K/mm3 03/03/22 03:54 Promyelocytes # 0.0 K/mm3 03/03/22 03:54 Blast Cells # 0.0 K/mm3 03/03/22 03:54 WBC Morphology Not Reportable 03/03/22 03:54 Hypersegmented Neuts Not Reportable 03/03/22 03:54 Hyposegmented Neuts Not Reportable 03/03/22 03:54 Hypogranular Neuts Not Reportable 03/03/22 03:54 Smudge Cells Not Reportable 03/03/22 03:54 Toxic Granulation Not Reportable 03/03/22 03:54 Toxic Vacuolation Not Reportable 03/03/22 03:54 Dohle Bodies Not Reportable 03/03/22 03:54 Pelger-Huet Anomaly Not Reportable 03/03/22 03:54 Lakshmi Rods Not Reportable 03/03/22 03:54 Platelet Estimate Consistent w auto 03/03/22 03:54 Clumped Platelets Not Reportable 03/03/22 03:54 Plt Clumps, EDTA Not Reportable 03/03/22 03:54 Large Platelets Not Reportable 03/03/22 03:54 Giant Platelets Not Reportable 03/03/22 03:54 Platelet Satelliting Not Reportable 03/03/22 03:54 Plt Morphology Comment Not Reportable 03/03/22 03:54 RBC Morphology Not Reportable 03/03/22 03:54 Dimorphic RBCs Not Reportable 03/03/22 03:54 Polychromasia Not Reportable 03/03/22 03:54 Hypochromasia Not Reportable 03/03/22 03:54 Poikilocytosis Not Reportable 03/03/22 03:54 Anisocytosis 1+ 03/03/22 03:54 Microcytosis Not Reportable 03/03/22 03:54 Macrocytosis Not Reportable 03/03/22 03:54 Spherocytes Not Reportable 03/03/22 03:54 Pappenheimer Bodies Not Reportable 03/03/22 03:54 Sickle Cells Not Reportable 03/03/22 03:54 Target Cells Not Reportable 03/03/22 03:54 Tear Drop Cells Not Reportable 03/03/22 03:54 Ovalocytes Not Reportable 03/03/22 03:54 Helmet Cells Not Reportable 03/03/22 03:54 Orellana-Mcgrew Bodies Not Reportable 03/03/22 03:54 [place] Rings Not Reportable 03/03/22 03:54 [place] Cells Not Reportable 03/03/22 03:54 Bite Cells Not Reportable 03/03/22 03:54 Crenated Cell Not Reportable 03/03/22 03:54 Elliptocytes Not Reportable 03/03/22 03:54 Acanthocytes (Spur) Not Reportable 03/03/22 03:54 Rouleaux Not Reportable 03/03/22 03:54 Hemoglobin C Crystals Not Reportable 03/03/22 03:54 Schistocytes Not Reportable 03/03/22 03:54 Malaria parasites Not Reportable 03/03/22 03:54 Cash Bodies Not Reportable 03/03/22 03:54 Hem Pathologist Commnt No 03/03/22 03:54 PT 16.2 Sec. (12.2-14.9) H 03/11/22 04:02 INR 1.16 (0.87-1.13) H 03/11/22 04:02 ABG pH 7.392 pH Units (7.350-7.450) 03/22/22 14:25 ABG pCO2 54.4 mm Hg 03/22/22 14:25 ABG pO2 150.5 mm Hg (80.0-90.0) H 03/22/22 14:25 ABG HCO3 32.4 mmol/L (20.0-26.0) H 03/22/22 14:25 ABG O2 Saturation 98.8 % (95.0-99.0) 03/22/22 14:25 ABG O2 Content 15.8 (0.0-44) 03/22/22 14:25 ABG Base Excess 6.2 mmol/L (-2.0-3.0) H 03/22/22 14:25 ABG Hemoglobin 11.4 gm/dl (14.0-18.0) L 03/22/22 14:25 ABG Carboxyhemoglobin 1.6 % (0.0-5.0) 03/22/22 14:25 ABG Methemoglobin 0.6 % (0.0-1.5) 03/22/22 14:25 Oxyhemoglobin 96.6 % (95.0-99.0) 03/22/22 14:25 FiO2 30 % 03/22/22 14:25 Sodium 140 mmol/L (137-145) 03/20/22 04:09 Potassium 4.4 mmol/L (3.6-5.0) 03/20/22 04:09 Chloride 101.7 mmol/L (98-107) 03/20/22 04:09 Carbon Dioxide 30 mmol/L (22-30) 03/20/22 04:09 Anion Gap 13 mmol/L 03/20/22 04:09 BUN 18 mg/dL (9-20) 03/20/22 04:09 Creatinine 0.6 mg/dL (0.8-1.3) L 03/20/22 04:09 Estimated GFR > 60 ml/min 03/20/22 04:09 BUN/Creatinine Ratio 30 % 03/20/22 04:09 Glucose 94 mg/dL (75-100) 03/20/22 04:09 POC Glucose 107 mg/dL (70-105) H 03/23/22 00:21 Lactic Acid 1.20 mmol/L (0.7-2.0) 02/18/22 21:02 Calcium 8.2 mg/dL (8.4-10.2) L 03/20/22 04:09 Phosphorus 3.50 mg/dL (2.5-4.5) 03/20/22 04:09 Magnesium 2.00 mg/dL (1.7-2.3) 03/20/22 04:09 Total Bilirubin 0.30 mg/dL (0.1-1.2) 03/10/22 03:57 AST 17 units/L (5-40) 03/10/22 03:57 ALT 18 units/L (7-56) 03/10/22 03:57 Alkaline Phosphatase 89 units/L (35-129) 03/10/22 03:57 Ammonia 14.0 umol/L (25-60) L 02/18/22 23:22 Troponin T < 0.010 ng/mL (0.00-0.029) 02/18/22 21:02 Total Protein 6.6 g/dL (6.3-8.2) 03/10/22 03:57 Albumin 1.9 g/dL (3.9-5) L 03/10/22 03:57 Albumin/Globulin Ratio 0.4 % 03/10/22 03:57 Urine Color Dark yellow (Yellow) 02/18/22 Unknown Urine Turbidity Clear (Clear) 02/18/22 Unknown Urine pH 7.0 (5.0-7.0) 02/18/22 Unknown Ur Specific [place] 1.015 (1.003-1.030) 02/18/22 Unknown Urine Protein <15 mg/dl mg/dL (Negative) 02/18/22 Unknown Urine Glucose (UA) Negative mg/dL (Negative) 02/18/22 Unknown Urine Ketones Negative mg/dL (Negative) 02/18/22 Unknown Urine Blood Trace (Negative) 02/18/22 Unknown Urine Nitrite Negative (Negative) 02/18/22 Unknown Urine Bilirubin Negative (Negative) 02/18/22 Unknown Urine Urobilinogen < 2.0 mg/dL (<2.0) 02/18/22 Unknown Ur Leukocyte Esterase Negative (Negative) 02/18/22 Unknown Urine WBC (Auto) 2.0 /HPF (0.0-6.0) 02/18/22 Unknown Urine RBC (Auto) 9.0 /HPF (0.0-6.0) 02/18/22 Unknown Urine Mucus Few /HPF 02/18/22 Unknown Urine Opiates Screen Negative 02/18/22 Unknown Urine Methadone Screen Negative 02/18/22 Unknown Ur Barbiturates Screen Negative 02/18/22 Unknown Ur Phencyclidine Scrn Negative 02/18/22 Unknown Ur Amphetamines Screen Negative 02/18/22 Unknown U Benzodiazepines Scrn Negative 02/18/22 Unknown Urine Cocaine Screen Negative 02/18/22 Unknown U Marijuana (THC) Screen Negative 02/18/22 Unknown Drugs of Abuse Note Disclamer 02/18/22 Unknown Plasma/Serum Alcohol < 0.01 % (0-0.07) 02/18/22 21:02 Summers/IV: Voiding Method Indwelling Catheter Active Medications - Current Medications Current Medications: Generic Name Dose Route Start Last Admin Trade Name Freq PRN Reason Stop Dose Admin Acetaminophen 650 mg 03/03/22 09:00 Acetaminophen 325 Mg/10.15 Ml Oral Liqd Unit Dose FEEDTUBE Q4H PRN Pain, Mild (1-3); TEMP > 100.4 Albuterol 2.5 mg 03/12/22 20:00 03/23/22 01:59 Albuterol 2.5 Mg/3 Ml Nebu IH 2.5 mg Q6HRT LAZARUS Administration Famotidine 20 mg 02/25/22 10:00 03/22/22 21:02 Famotidine 20 Mg Tab FEEDTUBE 20 mg BID LAZARUS Administration Heparin Sodium (Porcine) 5,000 unit 02/19/22 06:00 03/23/22 06:14 Heparin 5,000 Unit/1 Ml Vial SUB-Q 5,000 unit Q8HR LAZARUS Administration Hydrophilic Ointment 1 applic 02/24/22 15:05 Lip Therapy Vaseline TP Q2HR PRN Dry Lips Levetiracetam 500 mg 02/25/22 22:00 03/22/22 21:02 Levetiracetam 500 Mg/5 Ml Oral Liqd FEEDTUBE 500 mg BID LAZARUS Administration Levothyroxine Sodium 25 mcg 02/26/22 06:00 03/23/22 06:14 Levothyroxine 25 Mcg Tab FEEDTUBE 25 mcg QAM@0600 LAZARUS Administration Magnesium Hydroxide 30 ml 02/19/22 02:02 Magnesium Hydroxide (Mom) Oral Liqd Udc PO Q4H PRN Constipation Midodrine 2.5 mg 03/19/22 12:00 03/22/22 17:29 Midodrine 2.5 Mg Tab FEEDTUBE 2.5 mg TID@0800,1200,1600 LAZARUS Administration Multi-Ingred Cream/Lotion/Oil/Oint 1 applic 02/24/22 15:05 Mineral Oil/Petrolatum, White Ophth Oint 3.5 Gm OU Q4HR PRN Dry Eye(s) Ondansetron HCl 4 mg 02/19/22 02:02 Ondansetron 4 Mg/2 Ml Inj IV Q8H PRN Nausea And Vomiting Pravastatin Sodium 40 mg 02/25/22 22:00 03/22/22 21:02 Pravastatin 40 Mg Tab FEEDTUBE 40 mg QHS LAZARUS Administration Senna/Docusate Sodium 1 tab 02/24/22 22:00 03/22/22 21:02 Sennosides/Docusate Sodium 8.6/50 Mg Tab FEEDTUBE 1 tab BID LAZARUS Administration Sodium Chloride 10 ml 02/19/22 10:00 03/22/22 09:09 Sodium Chloride 0.9% 10 Ml Flush Syringe IV 10 ml BID LAZARUS Administration Sodium Chloride 10 ml 02/19/22 02:02 03/03/22 14:21 Sodium Chloride 0.9% 10 Ml Flush Syringe IV 10 ml PRN PRN Administration LINE FLUSH Nutrition/Malnutrition Assess - Dietary Evaluation Nutrition/Malnutrition Findings: Nutrition Notes Start: 02/19/22 14:29 Freq: Status: Active Protocol: Document 03/21/22 15:43 [facility] (Rec: 03/21/22 15:45 [facility] [id number]) Nutrition Notes Initial or Follow up Reassessment Current Diagnosis Hypertension,Respiratory Failure,Hyperlipidemia Other Pertinent Diagnosis Asp pneu, acute encephalopathy , seizure d/o, partial blindness Current Diet TF - Vital AF 1.2 at 50ml/hr Labs/Tests Reviewed Pertinent Medications Reviewed Height 5 ft 3 in Weight 63.2 kg [place] Body Weight (kg) 56.36 BMI 24.7 Weight Status Appropriate Subjective/Other Information Pt remains on vent support; still awaiting decision on guardianship for trach/PEG placement. Pt continues to tolerate TF at goal rate. Last BM was 03/18 per RN verbal report. Percent of energy/protein needs met: 90% energy 100% pro Burn Absent Trauma Absent #1 Nutrition Diagnosis Inadequate oral intake Diagnosis Progress(for reassessment Continues documentation) Is patient on ventilator? Yes Is Patient Ambulatory and/or Out of Bed No REE-([facility]-confined to bed) [phone] Calculation Used for Recommendations [facility] Additional Notes Pro needs 1.2-2g/k-126g/ day Fluid needs 1ml/kcal Nutrition Intervention Nutrition Support: Continue Vital AF 1.2 at 50ml/ hr with 75ml water flush q4h. Kcal 1,440 Protein (gm) 90 Carbohydrates (gm) 133 Fat (gm) 65 Fluid (mL) 973 Fiber (gm) 6 Goal #1 TF tolerance Goal #2 TF to meet at least 75% energy and pro needs Follow-Up By: 03/28/22 Additional Comments F/U: stable TF, trach/PEG placement, vent status, wt, BM
--- NOTE | 2022-03-22 14:04 | Progress Note ---
Subjective Date of service: 03/22/22 Principal diagnosis: f/u Acute respiratory failure Interval history: 61 y/o male with abnormal CT of chest. 03/22/2022: Day 26 of intubation. Appears to open eyes. Patient has been orally intubated. Seems to be tolerating PSV/CPAP with tidal volume around 300 to 400 mL, respiratory rate around 20 and minute ventilation of 7.5 L. Will order arterial blood gases to assess the ventilation. And oxygenation. 03/21/22: Day 25 of intubation. No new updates from the hospital about guardianship. Wound care saw on yesterday. Continue daily PSV trials as tolerated. Guarded prognosis. 03/20/22: Day 24 of intubation. No new recommendations. Still awaiting hospital update in regards to guardianship so that decisions can be made. Continue supportive measures. Wound care to see today. 03/19/22: Day 23 of intubation. Prognosis is still guarded. Will discuss with RT about attempts at daily PSV trials. Per notes, Wound care to see , wound was present on admission. 03/18/22: Day 22 of intubation. Prognosis remains guarded. Not able to obtain trach and peg with consent. Continue daily PSV trials as tolerated. 03/17/22: Day 21 of intubation. Still awaiting some form of decision maker for trach and peg placement. Guarded prognosis. 03/16/22: Day 20 of intubation. BP stable. Continue midodrine. Awaiting emergency guardianship from Court to obtain consent for trach and peg. Guarded prognosis. 03/15/22: Day 19 of intubation. BP now is marginal more regularly. Will give an additional liter bolus of LR now. May need to increase Midodrine back to 5. Needs trach in order to be safely weaned from ventilator. Will need peg tube placement in addition to trach. Prognosis remains guarded. Continue PSV trials as tolerated. 03/14/22: Day 18 of intubation. Vitals stable and mental status is unchanged. Still in need of tracheostomy as well as peg tube placement. No guardian appointed yet. 03/13/22: Day 17 of intubation. Agree with bolus and restarting of midodrine. was stopped previously secondary to bradycardia. If patient spikes temp, will culture blood and urine and repeat CXR. Continue daily PSV trials to assess ability for vent liberation. Continues to need trach however no family/guardian to provide consent. Guarded prognosis. 03/12/22: Day 16 of intubation. Following up with hospital in regards to guardian. Continue supportive measures. Guarded prognosis. 03/11/22: hospital now attempting to find emergency guardian to have consent for trach as ethics committee cannot comment on this matter so unable to help. Until then will remain intubated orally. Failed PSV yesterday, will continue to attempt on daily basis. Unfortunate situation. Guarded prognosis. 03/10/22: Today nuñez day 14 of intubation. Given patient's mental state and increased risk of aspiration, the likelihood of conventional extubation with success is very very slim and the patient has already failed this in an extremely short period of time (less than 1 hour). I suspect that he will fail again if tried and could create more difficult reintubation as he was a difficult reintubation on his failed extubation attempt. To prevent further decline and potential complications of prolonged mechanical ventilation, will discuss with ethics and the hospital to use 2 physician consent to obtain trach and peg for this patient with hopes of liberating him from the mechanical ventilator. he has very minimal vent requirements but as been stated several times above, he continues to aspirate and failed conventional extubation almost immediately. Will consult surgery today. Dr. Mancia is prepared to sign consent as well as myself. Hopeful surgery will be on board with this. Continue supportive care for now. Attempt daily PSV trials. 03/07/22: Daily PSV trials as tolerated. Still no one to step up as adult friend. patient has now been intubated since 02/24/22 and is approaching the time period in which prolonged mechanical ventilation could lead to significant complications that could be detrimental to health (infection, stenosis, malacia etc). Will discuss again with ethics but in regards to medical necessity, may need to consider two physician consent if no one is able to claim responsibility for this patient. He is a full code and we must work in his best interest to prevent further harm. Continue supportive measures but he is not a candidate for conventional extubation given his mental state, despite being on minimal support. He has already failed this before. 03/06/22: PSV trials daily. Will discuss with RT. Spoke with ethics. Plan in place and awaiting on news from halfway and state. Continue supportive measures. Patient has been intubated since 02/24/22 and is approaching the 2 week shadi of intubation will need to make decisions soon to avoid unnecessary complications related to prolonged intubation. 03/05/22: Will follow up with ethics today. Awaiting some guidance about consent for trach and peg. This is a medical necessity to liberate patient from mechanical ventilation. Continue supportive measures. Ok with daily PSV trials 03/04/22: Follow up with ethics later this afternoon. Spoke with RT and patient does have cuff leak, will stop steroids. Stopping midodrine as BP is stable and bradycardia likely from this. 03/03/22: Await ethics eval. CM has spoken with state as well. Daily cuff leaks. Will start to wean steroids tomorrow. Midodrine can cause bradycardia. If continues or worsens will stop. Guarded prognosis. 03/02/22: Continue supportive measures. Await ethics consult before surgery consult for trach and peg. no further need for fluid boluses. Will continue stress dose steroids but have daily air leak checks by RT. Still will need trach, will not attempt extubation again. Guarded prognosis. 03/01/22: Patient is having increased urine output. This could be the cause of new onset hypotension. Will bolus 2 more liters of LR now and reassess. If this continues may need to work up for SIADH including repeat head CT. Follow up ethics review of case. Will need trach for ventilator liberation. Overall prognosis remains guarded. 02/28/22: Will obtain CT neck, noncontrast to look for airway edema or other possible etiologies for failure. Needs ethics consult as given patient's mental state, inability to clear secretions appropriately, will need trach now that he has failed extubation. However he has no family and no POA so no one to give consent. Continue supportive measures. Guarded prognosis. 02/27/22: Continue improvement of oxygenation. Will drop PEEP down today with goal of being at 6 by in the morning. Will repeat CT scan to confirm improvement as no endobronchial lesion was seen, but also to make sure no parenchymal mass. There was no evidence of extrinsic compression during bronch. Likely extubation tomorrow post CT. 02/26/22: Repeat CXR now. Wean Vent as tolerated. Hopeful extubation soon. Mucous removed. NO ENDOBRONCHIAL LESION/MASS 02/25/22: Bronch tentatively planned for tomorrow with therapeutic scope. Awaiting GI lab to give a time. NPO after midnight. Continue high PEEP 02/24/22: WIll attempt to bronch tomorrow morning. NPO after midnight. Just received word from GI lab they are not able to do bronch tomorrow. Cancel NPO order. Continue to feed patient. Repeat ABG in AM along with CXR. 02/21/22: No new pulm recs for today. Please obtain repeat CXR likely on Thursday. If patient happens to get worse, likely not a candidate for bipap given his weak cough and mental state and inability to communicate. If worsens and requires intubation, will bronch then under emergent circumstances if no POA or family is able to be located. Continue CPT. Will discuss with RT about NT suctioning. 02/20/22: Saw speech while on the floor. Would like patient to be NPO now. Discussed with nurse on floor and with IMS. Same recs pulm way as yesterday. Would benefit from bronch if able to get consent as this is not emergent. Continue CPT and q shift NT suctioning. Reviewed admission in the past and of note, patient was recently admitted last month and had a CXR done on the 29 of January that was normal. Given this patient's medical history and the history that I obtained from the nursing staff that at the detention he was eating solid foods, I suspect that this is aspiration, possibly of a foreign body (most likely food) with atelectasis of the right lower lobe. It is highly unlikely that a mass evolved in size in less than a months time and patient, besides age, has no real risk factors for lung carcinoma. Discussed with the nurse and unfortunately there is no identifiable person that is able to give consent. Bronchoscopy is needed in the case to evaluate to see if lung mass is there vs foreign body, but at this time not able to do. In the meanwhile will recommend the following. 1. Will order CPT with neb therapy 3x daily 2. Suggest maybe NT suctioning q shift. May use nasal trumpet, however do not leave this device in the patient 3. Aspiration precautions 4. Consider speech eval to assess swallowing. Will continue to follow. CCT 31 minutes. Objective Vital Signs - 12hr 03/22/22 03/22/22 03/22/22 02:55 03:00 03:13 Temperature 98.9 F Pulse Rate 94 H Pulse Rate [ 82 Anterior Bilateral Throughout] Pulse Rate [ 86 Bilateral Throughout] Pulse Rate [ From Monitor] Respiratory 16 Rate Respiratory 18 Rate [Anterior Bilateral Throughout] Respiratory 18 Rate [Bilateral Throughout] Blood Pressure 125/68 O2 Sat by Pulse 100 Oximetry 03/22/22 03/22/22 03/22/22 04:00 05:00 06:00 Temperature Pulse Rate 91 H 78 73 Pulse Rate [ Anterior Bilateral Throughout] Pulse Rate [ Bilateral Throughout] Pulse Rate [ 97 H From Monitor] Respiratory 18 14 13 Rate Respiratory Rate [Anterior Bilateral Throughout] Respiratory Rate [Bilateral Throughout] Blood Pressure 125/68 116/48 107/56 O2 Sat by Pulse 97 99 100 Oximetry 03/22/22 03/22/22 03/22/22 07:01 07:19 08:00 Temperature 98.2 F Pulse Rate 76 70 71 Pulse Rate [ 73 Anterior Bilateral Throughout] Pulse Rate [ Bilateral Throughout] Pulse Rate [ From Monitor] Respiratory 15 9 L Rate Respiratory 15 Rate [Anterior Bilateral Throughout] Respiratory Rate [Bilateral Throughout] Blood Pressure 97/48 97/48 87/40 O2 Sat by Pulse 94 99 100 Oximetry 03/22/22 03/22/22 03/22/22 08:10 09:00 10:00 Temperature Pulse Rate 70 69 Pulse Rate [ Anterior Bilateral Throughout] Pulse Rate [ Bilateral Throughout] Pulse Rate [ From Monitor] Respiratory 11 L 10 L Rate Respiratory Rate [Anterior Bilateral Throughout] Respiratory Rate [Bilateral Throughout] Blood Pressure 85/40 86/46 O2 Sat by Pulse 100 94 97 Oximetry 03/22/22 03/22/22 03/22/22 10:50 11:01 12:00 Temperature 98.9 F Pulse Rate 76 78 77 Pulse Rate [ Anterior Bilateral Throughout] Pulse Rate [ Bilateral Throughout] Pulse Rate [ From Monitor] Respiratory 12 13 12 Rate Respiratory Rate [Anterior Bilateral Throughout] Respiratory Rate [Bilateral Throughout] Blood Pressure 86/46 119/61 110/54 O2 Sat by Pulse 100 100 99 Oximetry Constitutional: alert, other (critically ill on ventilator) Eyes: non-icteric ENT: oropharynx moist Neck: supple Effort: normal Ascultation: Bilateral: diminished breath sounds, rhonchi Cardiovascular: regular rate and rhythm (no mrg) Gastrointestinal: normoactive bowel sounds, soft, non-tender (on o2 vest in place), non-distended Integumentary: normal Extremities: no cyanosis, no edema Neurologic: other (awake) Psychiatric: other (unable to assess) CBC and BMP: 03/20/22 04:09 03/20/22 04:09 ABG, PT/INR, D-dimer: ABG ABG pH 7.476 pH Units (7.350-7.450) H 03/11/22 05:10 ABG pCO2 41.2 mm Hg 03/11/22 05:10 ABG pO2 84.0 mm Hg (80.0-90.0) 03/11/22 05:10 ABG O2 Saturation 97.1 % (95.0-99.0) 03/11/22 05:10 PT/INR, D-dimer PT 16.2 Sec. (12.2-14.9) H 03/11/22 04:02 INR 1.16 (0.87-1.13) H 03/11/22 04:02 Abnormal lab findings: Abnormal Labs 02/18/22 02/18/22 02/18/22 19:34 21:02 21:02 WBC RBC Hgb Hct MCV 101 H MCH 34 H MCHC RDW 16.1 H Lymph % (Auto) [place] % (Auto) 12.4 H Lymph # (Auto) [place] # (Auto) 1.2 H Seg Neutrophils % 73.0 H Seg Neuts % (Manual) Lymphocytes % (Manual) Seg Neutrophils # Seg Neutrophils # Man Lymphocytes # (Manual) PT 16.9 H INR 1.20 H ABG pH ABG pO2 ABG HCO3 ABG O2 Saturation ABG Base Excess ABG Hemoglobin Oxyhemoglobin Sodium Potassium Chloride Carbon Dioxide BUN Creatinine Glucose POC Glucose 116 H Calcium Phosphorus AST ALT Ammonia Albumin 02/18/22 02/18/22 02/18/22 21:02 22:45 23:22 WBC RBC Hgb Hct MCV MCH MCHC RDW Lymph % (Auto) [place] % (Auto) Lymph # (Auto) [place] # (Auto) Seg Neutrophils % Seg Neuts % (Manual) Lymphocytes % (Manual) Seg Neutrophils # Seg Neutrophils # Man Lymphocytes # (Manual) PT INR ABG pH ABG pO2 55.6 L ABG HCO3 28.4 H ABG O2 Saturation 91.5 L ABG Base Excess 3.8 H ABG Hemoglobin 13.2 L Oxyhemoglobin 89.6 L Sodium Potassium 5.1 H Chloride Carbon Dioxide BUN Creatinine Glucose 102 H POC Glucose Calcium Phosphorus AST 48 H ALT 64 H Ammonia 14.0 L Albumin 2.7 L 02/20/22 02/20/22 02/23/22 04:59 04:59 06:29 WBC 11.4 H RBC Hgb Hct MCV 103 H MCH 33 H MCHC RDW 16.5 H Lymph % (Auto) 5.5 L [place] % (Auto) 12.1 H Lymph # (Auto) 0.6 L [place] # (Auto) 1.4 H Seg Neutrophils % 81.4 H Seg Neuts % (Manual) Lymphocytes % (Manual) Seg Neutrophils # 9.2 H Seg Neutrophils # Man Lymphocytes # (Manual) PT INR ABG pH ABG pO2 ABG HCO3 ABG O2 Saturation ABG Base Excess ABG Hemoglobin Oxyhemoglobin Sodium Potassium Chloride Carbon Dioxide BUN Creatinine Glucose POC Glucose 113 H Calcium 8.2 L Phosphorus AST ALT Ammonia Albumin 02/23/22 02/23/22 02/24/22 11:22 16:10 00:02 WBC RBC Hgb Hct MCV MCH MCHC RDW Lymph % (Auto) [place] % (Auto) Lymph # (Auto) [place] # (Auto) Seg Neutrophils % Seg Neuts % (Manual) Lymphocytes % (Manual) Seg Neutrophils # Seg Neutrophils # Man Lymphocytes # (Manual) PT INR ABG pH ABG pO2 ABG HCO3 ABG O2 Saturation ABG Base Excess ABG Hemoglobin Oxyhemoglobin Sodium Potassium Chloride Carbon Dioxide BUN Creatinine Glucose POC Glucose 108 H 115 H 109 H Calcium Phosphorus AST ALT Ammonia Albumin 02/24/22 02/24/22 02/24/22 11:05 11:05 13:20 WBC RBC 3.55 L Hgb Hct MCV 100 H MCH 34 H MCHC RDW 15.6 H Lymph % (Auto) [place] % (Auto) Lymph # (Auto) [place] # (Auto) Seg Neutrophils % Seg Neuts % (Manual) Lymphocytes % (Manual) Seg Neutrophils # Seg Neutrophils # Man Lymphocytes # (Manual) PT INR ABG pH ABG pO2 ABG HCO3 ABG O2 Saturation ABG Base Excess ABG Hemoglobin Oxyhemoglobin Sodium 146 H Potassium 3.2 L D Chloride 108.4 H Carbon Dioxide BUN Creatinine 0.5 L Glucose POC Glucose 111 H Calcium 7.9 L Phosphorus 2.20 L AST ALT Ammonia Albumin 02/24/22 02/24/22 02/24/22 16:30 17:03 20:25 WBC RBC Hgb Hct MCV MCH MCHC RDW Lymph % (Auto) [place] % (Auto) Lymph # (Auto) [place] # (Auto) Seg Neutrophils % Seg Neuts % (Manual) Lymphocytes % (Manual) Seg Neutrophils # Seg Neutrophils # Man Lymphocytes # (Manual) PT INR ABG pH 7.319 L ABG pO2 65.3 L ABG HCO3 31.3 H ABG O2 Saturation 92.2 L ABG Base Excess 3.8 H ABG Hemoglobin 12.0 L Oxyhemoglobin 90.3 L Sodium Potassium Chloride 107.9 H Carbon Dioxide BUN 8 L Creatinine 0.4 L Glucose POC Glucose 108 H Calcium 7.6 L Phosphorus 4.60 H D AST ALT Ammonia Albumin 02/25/22 02/25/22 02/25/22 04:12 04:12 05:05 WBC RBC 3.07 L Hgb 10.2 L Hct 31.5 L MCV 103 H MCH 33 H MCHC RDW 15.6 H Lymph % (Auto) [place] % (Auto) Lymph # (Auto) [place] # (Auto) Seg Neutrophils % Seg Neuts % (Manual) Lymphocytes % (Manual) Seg Neutrophils # Seg Neutrophils # Man Lymphocytes # (Manual) PT INR ABG pH ABG pO2 ABG HCO3 32.5 H ABG O2 Saturation ABG Base Excess 5.6 H ABG Hemoglobin 10.8 L Oxyhemoglobin 94.8 L Sodium Potassium 3.5 L Chloride 107.7 H Carbon Dioxide BUN Creatinine 0.5 L Glucose POC Glucose Calcium 7.0 L Phosphorus AST ALT Ammonia Albumin 02/25/22 02/25/22 02/26/22 12:05 18:33 00:07 WBC RBC Hgb Hct MCV MCH MCHC RDW Lymph % (Auto) [place] % (Auto) Lymph # (Auto) [place] # (Auto) Seg Neutrophils % Seg Neuts % (Manual) Lymphocytes % (Manual) Seg Neutrophils # Seg Neutrophils # Man Lymphocytes # (Manual) PT INR ABG pH ABG pO2 ABG HCO3 ABG O2 Saturation ABG Base Excess ABG Hemoglobin Oxyhemoglobin Sodium Potassium Chloride Carbon Dioxide BUN Creatinine Glucose POC Glucose 127 H 125 H 114 H Calcium Phosphorus AST ALT Ammonia Albumin 02/26/22 02/26/22 02/26/22 03:30 04:42 11:34 WBC RBC Hgb Hct MCV MCH MCHC RDW Lymph % (Auto) [place] % (Auto) Lymph # (Auto) [place] # (Auto) Seg Neutrophils % Seg Neuts % (Manual) Lymphocytes % (Manual) Seg Neutrophils # Seg Neutrophils # Man Lymphocytes # (Manual) PT INR ABG pH ABG pO2 143.2 H ABG HCO3 33.2 H ABG O2 Saturation ABG Base Excess 6.5 H ABG Hemoglobin 9.4 L Oxyhemoglobin Sodium Potassium Chloride Carbon Dioxide 32 H BUN Creatinine 0.7 L Glucose POC Glucose 114 H Calcium 8.0 L Phosphorus AST ALT Ammonia Albumin 02/26/22 02/26/22 02/27/22 18:17 23:37 04:19 WBC 13.7 H RBC 2.78 L Hgb 9.3 L Hct 28.5 L MCV 103 H MCH 33 H MCHC RDW 16.3 H Lymph % (Auto) [place] % (Auto) Lymph # (Auto) [place] # (Auto) Seg Neutrophils % Seg Neuts % (Manual) Lymphocytes % (Manual) Seg Neutrophils # Seg Neutrophils # Man Lymphocytes # (Manual) PT INR ABG pH ABG pO2 ABG HCO3 ABG O2 Saturation ABG Base Excess ABG Hemoglobin Oxyhemoglobin Sodium Potassium Chloride Carbon Dioxide BUN Creatinine Glucose POC Glucose 111 H 117 H Calcium Phosphorus AST ALT Ammonia Albumin 02/27/22 02/27/22 02/27/22 04:19 04:35 05:27 WBC RBC Hgb Hct MCV MCH MCHC RDW Lymph % (Auto) [place] % (Auto) Lymph # (Auto) [place] # (Auto) Seg Neutrophils % Seg Neuts % (Manual) Lymphocytes % (Manual) Seg Neutrophils # Seg Neutrophils # Man Lymphocytes # (Manual) PT INR ABG pH ABG pO2 96.3 H ABG HCO3 34.9 H ABG O2 Saturation ABG Base Excess 8.1 H ABG Hemoglobin Oxyhemoglobin Sodium Potassium Chloride Carbon Dioxide 31 H BUN Creatinine 0.6 L Glucose 107 H POC Glucose 133 H Calcium 7.8 L Phosphorus AST ALT Ammonia Albumin 02/27/22 02/27/22 02/28/22 11:15 23:35 03:38 WBC 13.3 H RBC 3.05 L Hgb 10.2 L Hct 30.7 L MCV 101 H MCH 33 H MCHC RDW 16.1 H Lymph % (Auto) [place] % (Auto) Lymph # (Auto) [place] # (Auto) Seg Neutrophils % Seg Neuts % (Manual) Lymphocytes % (Manual) Seg Neutrophils # Seg Neutrophils # Man Lymphocytes # (Manual) PT INR ABG pH ABG pO2 ABG HCO3 ABG O2 Saturation ABG Base Excess ABG Hemoglobin Oxyhemoglobin Sodium Potassium Chloride Carbon Dioxide BUN Creatinine Glucose POC Glucose 129 H 122 H Calcium Phosphorus AST ALT Ammonia Albumin 02/28/22 02/28/22 02/28/22 04:50 05:30 09:30 WBC RBC Hgb Hct MCV MCH MCHC RDW Lymph % (Auto) [place] % (Auto) Lymph # (Auto) [place] # (Auto) Seg Neutrophils % Seg Neuts % (Manual) Lymphocytes % (Manual) Seg Neutrophils # Seg Neutrophils # Man Lymphocytes # (Manual) PT INR ABG pH 7.451 H 7.488 H ABG pO2 77.0 L ABG HCO3 37.1 H 34.6 H ABG O2 Saturation ABG Base Excess 11.5 H 10.1 H ABG Hemoglobin 10.1 L 10.0 L Oxyhemoglobin Sodium Potassium Chloride Carbon Dioxide BUN Creatinine Glucose POC Glucose 121 H Calcium Phosphorus AST ALT Ammonia Albumin 02/28/22 02/28/22 03/01/22 11:36 23:07 04:27 WBC 12.5 H RBC 2.85 L Hgb 9.5 L Hct 28.6 L MCV 101 H MCH 33 H MCHC RDW 15.7 H Lymph % (Auto) [place] % (Auto) Lymph # (Auto) [place] # (Auto) Seg Neutrophils % Seg Neuts % (Manual) Lymphocytes % (Manual) Seg Neutrophils # Seg Neutrophils # Man Lymphocytes # (Manual) PT INR ABG pH ABG pO2 ABG HCO3 ABG O2 Saturation ABG Base Excess ABG Hemoglobin Oxyhemoglobin Sodium Potassium Chloride Carbon Dioxide BUN Creatinine Glucose POC Glucose 112 H 107 H Calcium Phosphorus AST ALT Ammonia Albumin 03/01/22 03/01/22 03/01/22 04:27 05:05 11:29 WBC RBC Hgb Hct MCV MCH MCHC RDW Lymph % (Auto) [place] % (Auto) Lymph # (Auto) [place] # (Auto) Seg Neutrophils % Seg Neuts % (Manual) Lymphocytes % (Manual) Seg Neutrophils # Seg Neutrophils # Man Lymphocytes # (Manual) PT INR ABG pH ABG pO2 ABG HCO3 ABG O2 Saturation ABG Base Excess ABG Hemoglobin Oxyhemoglobin Sodium 147 H D Potassium Chloride Carbon Dioxide 34 H BUN Creatinine 0.6 L Glucose 128 H POC Glucose 119 H 121 H Calcium 7.9 L Phosphorus AST ALT Ammonia Albumin 03/01/22 03/01/22 03/02/22 16:15 23:57 05:18 WBC RBC Hgb Hct MCV MCH MCHC RDW Lymph % (Auto) [place] % (Auto) Lymph # (Auto) [place] # (Auto) Seg Neutrophils % Seg Neuts % (Manual) Lymphocytes % (Manual) Seg Neutrophils # Seg Neutrophils # Man Lymphocytes # (Manual) PT INR ABG pH ABG pO2 110.5 H ABG HCO3 33.0 H ABG O2 Saturation ABG Base Excess 7.4 H ABG Hemoglobin 8.6 L Oxyhemoglobin Sodium Potassium Chloride Carbon Dioxide BUN Creatinine Glucose POC Glucose 134 H 140 H Calcium Phosphorus AST ALT Ammonia Albumin 03/02/22 03/02/22 03/02/22 05:53 09:04 09:04 WBC 15.0 H RBC 3.00 L Hgb 9.7 L Hct 30.7 L MCV 102 H MCH MCHC RDW 16.6 H Lymph % (Auto) [place] % (Auto) Lymph # (Auto) [place] # (Auto) Seg Neutrophils % Seg Neuts % (Manual) Lymphocytes % (Manual) Seg Neutrophils # Seg Neutrophils # Man Lymphocytes # (Manual) PT INR ABG pH ABG pO2 ABG HCO3 ABG O2 Saturation ABG Base Excess ABG Hemoglobin Oxyhemoglobin Sodium Potassium Chloride Carbon Dioxide 31 H BUN Creatinine 0.6 L Glucose 157 H POC Glucose 158 H Calcium 7.9 L Phosphorus AST ALT Ammonia Albumin 03/02/22 03/02/22 03/02/22 11:36 16:25 23:17 WBC RBC Hgb Hct MCV MCH MCHC RDW Lymph % (Auto) [place] % (Auto) Lymph # (Auto) [place] # (Auto) Seg Neutrophils % Seg Neuts % (Manual) Lymphocytes % (Manual) Seg Neutrophils # Seg Neutrophils # Man Lymphocytes # (Manual) PT INR ABG pH ABG pO2 ABG HCO3 ABG O2 Saturation ABG Base Excess ABG Hemoglobin Oxyhemoglobin Sodium Potassium Chloride Carbon Dioxide BUN Creatinine Glucose POC Glucose 160 H 132 H 157 H Calcium Phosphorus AST ALT Ammonia Albumin 03/03/22 03/03/22 03/03/22 03:54 03:54 05:27 WBC 19.5 H RBC 2.79 L Hgb 9.0 L Hct 28.6 L MCV 102 H MCH MCHC RDW 16.2 H Lymph % (Auto) [place] % (Auto) Lymph # (Auto) [place] # (Auto) Seg Neutrophils % Seg Neuts % (Manual) 95.0 H Lymphocytes % (Manual) 3.0 L Seg Neutrophils # Seg Neutrophils # Man 18.5 H Lymphocytes # (Manual) 0.6 L PT INR ABG pH ABG pO2 ABG HCO3 ABG O2 Saturation ABG Base Excess ABG Hemoglobin Oxyhemoglobin Sodium Potassium Chloride Carbon Dioxide BUN Creatinine 0.6 L Glucose 130 H POC Glucose 149 H Calcium 8.1 L Phosphorus AST ALT Ammonia Albumin 03/03/22 03/03/22 03/04/22 11:13 17:30 00:02 WBC RBC Hgb Hct MCV MCH MCHC RDW Lymph % (Auto) [place] % (Auto) Lymph # (Auto) [place] # (Auto) Seg Neutrophils % Seg Neuts % (Manual) Lymphocytes % (Manual) Seg Neutrophils # Seg Neutrophils # Man Lymphocytes # (Manual) PT INR ABG pH ABG pO2 ABG HCO3 ABG O2 Saturation ABG Base Excess ABG Hemoglobin Oxyhemoglobin Sodium Potassium Chloride Carbon Dioxide BUN Creatinine Glucose POC Glucose 139 H 138 H 157 H Calcium Phosphorus AST ALT Ammonia Albumin 03/04/22 03/04/22 03/04/22 05:32 05:32 05:48 WBC 16.1 H RBC 2.81 L Hgb 9.3 L Hct 28.8 L MCV 102 H MCH 33 H MCHC RDW 16.7 H Lymph % (Auto) [place] % (Auto) Lymph # (Auto) [place] # (Auto) Seg Neutrophils % Seg Neuts % (Manual) Lymphocytes % (Manual) Seg Neutrophils # Seg Neutrophils # Man Lymphocytes # (Manual) PT INR ABG pH ABG pO2 ABG HCO3 ABG O2 Saturation ABG Base Excess ABG Hemoglobin Oxyhemoglobin Sodium Potassium Chloride Carbon Dioxide BUN Creatinine 0.7 L Glucose 135 H POC Glucose 145 H Calcium 8.3 L Phosphorus AST ALT Ammonia Albumin 03/04/22 03/04/22 03/05/22 11:34 16:29 00:28 WBC RBC Hgb Hct MCV MCH MCHC RDW Lymph % (Auto) [place] % (Auto) Lymph # (Auto) [place] # (Auto) Seg Neutrophils % Seg Neuts % (Manual) Lymphocytes % (Manual) Seg Neutrophils # Seg Neutrophils # Man Lymphocytes # (Manual) PT INR ABG pH ABG pO2 ABG HCO3 ABG O2 Saturation ABG Base Excess ABG Hemoglobin Oxyhemoglobin Sodium Potassium Chloride Carbon Dioxide BUN Creatinine Glucose POC Glucose 148 H 140 H 116 H Calcium Phosphorus AST ALT Ammonia Albumin 03/05/22 03/05/22 03/05/22 06:29 11:30 17:38 WBC RBC Hgb Hct MCV MCH MCHC RDW Lymph % (Auto) [place] % (Auto) Lymph # (Auto) [place] # (Auto) Seg Neutrophils % Seg Neuts % (Manual) Lymphocytes % (Manual) Seg Neutrophils # Seg Neutrophils # Man Lymphocytes # (Manual) PT INR ABG pH ABG pO2 ABG HCO3 ABG O2 Saturation ABG Base Excess ABG Hemoglobin Oxyhemoglobin Sodium Potassium Chloride Carbon Dioxide BUN Creatinine Glucose POC Glucose 114 H 114 H 117 H Calcium Phosphorus AST ALT Ammonia Albumin 03/06/22 03/06/22 03/06/22 04:17 04:17 06:06 WBC 13.4 H RBC 2.85 L Hgb 9.4 L Hct 29.0 L MCV 102 H MCH 33 H MCHC RDW 16.4 H Lymph % (Auto) [place] % (Auto) Lymph # (Auto) [place] # (Auto) Seg Neutrophils % Seg Neuts % (Manual) Lymphocytes % (Manual) Seg Neutrophils # Seg Neutrophils # Man Lymphocytes # (Manual) PT INR ABG pH ABG pO2 ABG HCO3 ABG O2 Saturation ABG Base Excess ABG Hemoglobin Oxyhemoglobin Sodium Potassium 3.5 L Chloride Carbon Dioxide 31 H BUN Creatinine 0.6 L Glucose 101 H POC Glucose 106 H Calcium 7.7 L Phosphorus 2.00 L AST ALT Ammonia Albumin 03/06/22 03/06/22 03/07/22 18:04 23:50 05:14 WBC RBC Hgb Hct MCV MCH MCHC RDW Lymph % (Auto) [place] % (Auto) Lymph # (Auto) [place] # (Auto) Seg Neutrophils % Seg Neuts % (Manual) Lymphocytes % (Manual) Seg Neutrophils # Seg Neutrophils # Man Lymphocytes # (Manual) PT INR ABG pH ABG pO2 ABG HCO3 ABG O2 Saturation ABG Base Excess ABG Hemoglobin Oxyhemoglobin Sodium Potassium Chloride Carbon Dioxide BUN Creatinine Glucose POC Glucose 108 H 115 H 116 H Calcium Phosphorus AST ALT Ammonia Albumin 03/07/22 03/07/22 03/08/22 11:42 18:13 04:34 WBC RBC 2.86 L Hgb 9.2 L Hct 29.3 L MCV 103 H MCH MCHC 31 L RDW 16.9 H Lymph % (Auto) [place] % (Auto) Lymph # (Auto) [place] # (Auto) Seg Neutrophils % Seg Neuts % (Manual) Lymphocytes % (Manual) Seg Neutrophils # Seg Neutrophils # Man Lymphocytes # (Manual) PT INR ABG pH ABG pO2 ABG HCO3 ABG O2 Saturation ABG Base Excess ABG Hemoglobin Oxyhemoglobin Sodium Potassium Chloride Carbon Dioxide BUN Creatinine Glucose POC Glucose 123 H 109 H Calcium Phosphorus AST ALT Ammonia Albumin 03/08/22 03/08/22 03/08/22 04:34 11:29 16:34 WBC RBC Hgb Hct MCV MCH MCHC RDW Lymph % (Auto) [place] % (Auto) Lymph # (Auto) [place] # (Auto) Seg Neutrophils % Seg Neuts % (Manual) Lymphocytes % (Manual) Seg Neutrophils # Seg Neutrophils # Man Lymphocytes # (Manual) PT INR ABG pH ABG pO2 ABG HCO3 ABG O2 Saturation ABG Base Excess ABG Hemoglobin Oxyhemoglobin Sodium Potassium Chloride Carbon Dioxide 33 H BUN Creatinine 0.5 L Glucose 109 H POC Glucose 117 H 109 H Calcium 7.6 L Phosphorus AST ALT Ammonia Albumin 03/08/22 03/09/22 03/10/22 23:56 11:15 03:57 WBC RBC 2.99 L Hgb 9.9 L Hct 30.3 L MCV 102 H MCH 33 H MCHC RDW 16.8 H Lymph % (Auto) 13.3 L [place] % (Auto) 12.5 H Lymph # (Auto) [place] # (Auto) 1.3 H Seg Neutrophils % 72.4 H Seg Neuts % (Manual) Lymphocytes % (Manual) Seg Neutrophils # Seg Neutrophils # Man Lymphocytes # (Manual) PT INR ABG pH ABG pO2 ABG HCO3 ABG O2 Saturation ABG Base Excess ABG Hemoglobin Oxyhemoglobin Sodium Potassium Chloride Carbon Dioxide BUN Creatinine Glucose POC Glucose 106 H 110 H Calcium Phosphorus AST ALT Ammonia Albumin 03/10/22 03/10/22 03/10/22 03:57 04:50 16:04 WBC RBC Hgb Hct MCV MCH MCHC RDW Lymph % (Auto) [place] % (Auto) Lymph # (Auto) [place] # (Auto) Seg Neutrophils % Seg Neuts % (Manual) Lymphocytes % (Manual) Seg Neutrophils # Seg Neutrophils # Man Lymphocytes # (Manual) PT INR ABG pH 7.465 H ABG pO2 ABG HCO3 31.9 H ABG O2 Saturation ABG Base Excess 7.3 H ABG Hemoglobin 11.0 L Oxyhemoglobin Sodium Potassium 3.4 L Chloride Carbon Dioxide BUN Creatinine 0.6 L Glucose POC Glucose 115 H Calcium 8.1 L Phosphorus AST ALT Ammonia Albumin 1.9 L 03/11/22 03/11/22 03/11/22 04:02 04:02 04:02 WBC 12.0 H RBC 2.81 L Hgb 9.2 L Hct 29.1 L MCV 103 H MCH 33 H MCHC RDW 17.5 H Lymph % (Auto) [place] % (Auto) Lymph # (Auto) [place] # (Auto) Seg Neutrophils % Seg Neuts % (Manual) Lymphocytes % (Manual) Seg Neutrophils # Seg Neutrophils # Man Lymphocytes # (Manual) PT 16.2 H INR 1.16 H ABG pH ABG pO2 ABG HCO3 ABG O2 Saturation ABG Base Excess ABG Hemoglobin Oxyhemoglobin Sodium Potassium Chloride Carbon Dioxide BUN Creatinine 0.5 L Glucose 104 H POC Glucose Calcium 7.9 L Phosphorus AST ALT Ammonia Albumin 03/11/22 03/11/22 03/11/22 05:10 11:07 16:32 WBC RBC Hgb Hct MCV MCH MCHC RDW Lymph % (Auto) [place] % (Auto) Lymph # (Auto) [place] # (Auto) Seg Neutrophils % Seg Neuts % (Manual) Lymphocytes % (Manual) Seg Neutrophils # Seg Neutrophils # Man Lymphocytes # (Manual) PT INR ABG pH 7.476 H ABG pO2 ABG HCO3 29.7 H ABG O2 Saturation ABG Base Excess 5.7 H ABG Hemoglobin 9.1 L Oxyhemoglobin Sodium Potassium Chloride Carbon Dioxide BUN Creatinine Glucose POC Glucose 108 H 121 H Calcium Phosphorus AST ALT Ammonia Albumin 03/12/22 03/13/22 03/13/22 05:51 06:08 12:02 WBC RBC 2.73 L Hgb 9.0 L Hct 27.5 L MCV 101 H MCH 33 H MCHC RDW 17.2 H Lymph % (Auto) [place] % (Auto) Lymph # (Auto) [place] # (Auto) Seg Neutrophils % Seg Neuts % (Manual) Lymphocytes % (Manual) Seg Neutrophils # Seg Neutrophils # Man Lymphocytes # (Manual) PT INR ABG pH ABG pO2 ABG HCO3 ABG O2 Saturation ABG Base Excess ABG Hemoglobin Oxyhemoglobin Sodium Potassium Chloride Carbon Dioxide BUN Creatinine Glucose POC Glucose 116 H 111 H Calcium Phosphorus AST ALT Ammonia Albumin 03/13/22 03/13/22 03/14/22 12:48 18:17 03:58 WBC RBC 2.97 L Hgb 9.7 L Hct 30.0 L MCV 101 H MCH 33 H MCHC RDW 16.7 H Lymph % (Auto) [place] % (Auto) Lymph # (Auto) [place] # (Auto) Seg Neutrophils % Seg Neuts % (Manual) Lymphocytes % (Manual) Seg Neutrophils # Seg Neutrophils # Man Lymphocytes # (Manual) PT INR ABG pH ABG pO2 ABG HCO3 ABG O2 Saturation ABG Base Excess ABG Hemoglobin Oxyhemoglobin Sodium Potassium Chloride Carbon Dioxide BUN Creatinine Glucose POC Glucose 125 H 114 H Calcium Phosphorus AST ALT Ammonia Albumin 03/14/22 03/14/22 03/14/22 03:58 13:01 16:41 WBC RBC Hgb Hct MCV MCH MCHC RDW Lymph % (Auto) [place] % (Auto) Lymph # (Auto) [place] # (Auto) Seg Neutrophils % Seg Neuts % (Manual) Lymphocytes % (Manual) Seg Neutrophils # Seg Neutrophils # Man Lymphocytes # (Manual) PT INR ABG pH ABG pO2 ABG HCO3 ABG O2 Saturation ABG Base Excess ABG Hemoglobin Oxyhemoglobin Sodium Potassium Chloride Carbon Dioxide BUN Creatinine 0.6 L Glucose POC Glucose 118 H 109 H Calcium 8.2 L Phosphorus AST ALT Ammonia Albumin 03/16/22 03/16/22 03/17/22 05:28 05:28 23:19 WBC RBC 2.81 L Hgb 9.1 L Hct 27.8 L MCV 99 H MCH MCHC RDW 17.0 H Lymph % (Auto) [place] % (Auto) Lymph # (Auto) [place] # (Auto) Seg Neutrophils % Seg Neuts % (Manual) Lymphocytes % (Manual) Seg Neutrophils # Seg Neutrophils # Man Lymphocytes # (Manual) PT INR ABG pH ABG pO2 ABG HCO3 ABG O2 Saturation ABG Base Excess ABG Hemoglobin Oxyhemoglobin Sodium Potassium Chloride Carbon Dioxide BUN Creatinine 0.5 L Glucose POC Glucose 113 H Calcium 8.2 L Phosphorus AST ALT Ammonia Albumin 03/20/22 03/20/22 03/20/22 04:09 04:09 17:22 WBC RBC 2.90 L Hgb 9.6 L Hct 28.9 L MCV 100 H MCH 33 H MCHC RDW 17.4 H Lymph % (Auto) [place] % (Auto) Lymph # (Auto) [place] # (Auto) Seg Neutrophils % Seg Neuts % (Manual) Lymphocytes % (Manual) Seg Neutrophils # Seg Neutrophils # Man Lymphocytes # (Manual) PT INR ABG pH ABG pO2 ABG HCO3 ABG O2 Saturation ABG Base Excess ABG Hemoglobin Oxyhemoglobin Sodium Potassium Chloride Carbon Dioxide BUN Creatinine 0.6 L Glucose POC Glucose 110 H Calcium 8.2 L Phosphorus AST ALT Ammonia Albumin 03/21/22 03/21/22 18:24 23:09 WBC RBC Hgb Hct MCV MCH MCHC RDW Lymph % (Auto) [place] % (Auto) Lymph # (Auto) [place] # (Auto) Seg Neutrophils % Seg Neuts % (Manual) Lymphocytes % (Manual) Seg Neutrophils # Seg Neutrophils # Man Lymphocytes # (Manual) PT INR ABG pH ABG pO2 ABG HCO3 ABG O2 Saturation ABG Base Excess ABG Hemoglobin Oxyhemoglobin Sodium Potassium Chloride Carbon Dioxide BUN Creatinine Glucose POC Glucose 110 H 107 H Calcium Phosphorus AST ALT Ammonia Albumin
[2022-03-22 15:04] LABS: ABG Base Excess 6.2 mmol/L (-2.0-3.0); ABG HCO3 32.4 mmol/L (20.0-26.0); ABG Methemoglobin 0.6 % (0.0-1.5); ABG Oxygen Saturation 98.8 % (95.0-99.0); ABG PCO2 54.4 mm Hg; ABG PH 7.392 pH Units (7.350-7.450); ABG PO2 150.5 mm Hg (80.0-90.0)
[2022-03-22] MEDS: PRAVASTATIN 40 MG TAB FEEDTUBE SCH (21:02)
[2022-03-23] MEDS: ALBUTEROL 2.5 MG/3 ML NEBU IH SCH ×4 (01:59→19:05)
[2022-03-23] MEDS: LEVOTHYROXINE 25 MCG TAB FEEDTUBE SCH (06:14)
[2022-03-23] MEDS: HEPARIN 5,000 UNIT/1 ML VIAL SUB-Q SCH ×3 (06:14→21:08)
[2022-03-23] MEDS: MIDODRINE 2.5 MG TAB FEEDTUBE SCH ×3 (09:25→17:49)
[2022-03-23] MEDS: levETIRAcetam 500 MG/5 ML ORAL LIQD FEEDTUBE SCH ×2 (09:25→21:08)
[2022-03-23] MEDS: SENNOSIDES/DOCUSATE SODIUM 8.6/50 MG TAB FEEDTUBE SCH ×2 (09:25→21:08)
[2022-03-23] MEDS: FAMOTIDINE 20 MG TAB FEEDTUBE SCH ×2 (09:25→21:08)
--- NOTE | 2022-03-23 10:46 | Progress Note ---
<KEATON GOLD - Last Filed: 03/23/22 19:02> Assessment and Plan Assessment and plan: This is a 51-year-old male with HTN, seizure disorder, Down syndrome, HLD, partial blindness admitted with aspiration pneumonia, probable bronchogenic carcinoma, acute hypoxic respiratory failure and acute encephalopathy Hospital course to date: 02/19/2022. Consult pulmonary for further evaluation and possible bronchoscopy. I suspect patient has component of aspiration pneumonia as well. We will obtain a speech therapy evaluation for swallowing and start empiric antibiotics. Continue O2 supplementation to maintain sats greater than 92%. 02/20/2022. Pulmonary feels that the abnormality seen on CT scan is highly unlikely for a mass given negative chest x-ray 1 month ago and no risk factors. Etiology is likely secondary to aspiration from possibly a foreign body most likely food with atelectasis of the right lower lobe. Bronchoscopy is needed in the case to evaluate to see if lung mass is there vs foreign body, but at this time not able to do because no identifiable person that is able to give consent. Continue aspiration precautions and continue speech therapy evaluation for swallowing. Keep n.p.o. for now 02/21/2022. Patient remains NPO. Consider DHT placement. Follow-up with speech therapy evaluation. Pulmonology to consider bronchoscopy if able to obtain consent. Continue IV antibiotics for aspiration pneumonia 02/22/2022. Patient remains NPO. Consider DHT placement. Follow-up with speech therapy evaluation. Pulmonology to consider bronchoscopy if able to obtain consent. Continue IV antibiotics for aspiration pneumonia 02/23/2022. DHT placed yesterday. TF initiated for nutritional support. Patient currently with strict NPO. Aspiration precautions. Pulmonology to consider bronchoscopy if able to obtain consent. Continue IV antibiotics for aspiration pneumonia 02/24: Patient was transferred to the ICU for further monitoring. This morning patient remained on high flow nasal cannula on 40 L/100% and despite repeated nasotracheal suctioning patient SPO2 remained in the 80s. Patient was placed on nonrebreather and SPO2 increased to upper 80s. Patient was subsequently intubated by anesthesia. Started on sedation. 02/25: Patient remains sedated on fentanyl, potassium and magnesium repleted. IV fluids and amlodipine discontinued. Possible bronchoscopy tomorrow. 02/26: Patient had a bronchoscopy today which showed mucus and no endobronchial lesions or masses. FiO2 was increased to 100 during and postprocedure weaning as tolerated. Repeat CXR is much improved after bronc. Given 1 L LR bolus due to hypotension. No acute events reported overnight. 02/27: Decreased PEEP, will repeat CT of chest. no acute changes overnight. 02/28: Patient was extubated today however had to be be intubated shortly after. Patient ETT looked mispositioned on x-ray and Dr. Alonzo did do a bedside bronc. Patient was briefly hypotensive and on Levophed postintubation however Levophed was quickly titrated off and patient did not require central line. No acute events reported overnight. Will obtain CT neck d/t difficulty intubating. Ethi committee consulted. 03/04: Overnight patient was hypotensive and started on IVF. Patient started on steroids as no air leak noted and hypotension and given 2 L LR 03/05: Overnight patient received bolus per RN report, no orders seen. Continue supportive care 03/03: SB on the monitor, HR as low as 37, VSS. Will continue to monitor for now. Awaiting on desicion from [facility] for possible trach and PEG. Continue daily air leak per [facility] 03/04: MAIDA overnight. Remains stable on the vent. Awaiting on desicion from [facility] for possible trach and PEG. Continue current supportive measures 03/05: MAIDA overnight. Awaiting on desicion from [facility] for possible trach and PEG. Midodrine held yesterday, HR improved. Continue current supportive measures. Daily PSV trial as tolerated per [facility] 03/06: Remains stable on the vent. Continue current supportive measures, daily PSV trial per [facility]. Awaiting on desicion for possible trach and PEG. 03/07: MAIDA overnight, remains stable. Continue daily PSV trial as tolerated. Awaiting on desicion for possible trach and PEG. 03/08: Patient failed PSV trial this am due to tachycardia and increase RR. Continue supportive measures and daily PSV trial as tolerated. Possible discussion with [facility] and [facility] on Thursday in regards to medical necessity, may need to consider two physician consent if no one is able to claim responsibility for this patient. 03/09: MAIDA overnight. Continue current supportive measures and daily PSV trail as tolerated. Awaiting on desicion for possible trach and PEG, discussion with Ethics possibly tomorrow per [facility]. 03/10: no acute events overnight, PSV today. replete potassium. 03/11: No acute events reported overnight, patient failed PSV yesterday and will repeat today. Hospital to start guardianship process. 03/12: No acute events overnight. PSV today 03/13: Patient given 500ml normal saline and started on midodrine for h ypotension. No acute events reported overnight. Failed pressure support again this morning. 03/14: No acute events reported overnight, patient blood pressure seems better therefore midodrine discontinued. RT placed on CPAP need lasted for couple hours. Will remove summers 03/15: Midodrine was restarted yesterday evening for hypotension, Summers catheter not removed due to sacral ulcer and history of retention. Unable to crush Flomax and patient will not tolerate doxazosin given hypotension. Given LR bolus this morning. If blood pressure continues to be borderline after bolus, we will adjust management as needed. CPAP as tolerated 03/16: No acute events reported overnight, patient placed on CPAP trial this morning which he failed. 03/17: RT attempted PSV which he failed again today. No acute events reported overnight. 03/18: Awaiting ethic committee's decision on Trach/PEG. Patient tolerated PSV trial for over 3 hrs today, continue daily PSV trial as tolerated. 03/19: MAIDA overnight. Continue current supportive measures. Daily PSV trial as tolerated. Awaiting on desicion for possible trach and PEG. 03/20: MAIDA overnight. Daily PSV trial as tolerated. Awaiting decision on guardian ship for trach and PEG. 03/21: Remains stable, condition unchanged. Continue supportive measures and daily PSV trial as tolerated. 03/22: MAIDA overnight. Continue current supportive measures. Daily PSV trial as tolerated 03/23: MAIDA overnight, continue supportive measures and daily PSV trial as tolerated. Neuro: Acute encephalopathy, h/o seizure disorder, Down syndrome, partial blind ness -Intubated and off sedation -Reorientation as needed -Maintain sleep-wake cycle -aspiration/seizure precautions -As needed analgesia -CT head showed no acute abnormality -Continue Keppra Cardiac: Hypotension, h/o HTN, HLD -Cardiology consulted, appreciate recommendations -Blood pressure monitoring per protocol -d/c amlodipine -On PO Midodrine for hypotension Respiratory: Acute hypoxic respiratory failure, r/o bronchogenic carcinoma -CCM consulted, appreciate recommendations -Intubated on 02/24 with a 8.0 at 23 at the lips but extubated 02/28 -reintubated 02/28 with 8.0 OETT -Vent settings: AC rate 14, TV 360, PEEP 6, FO2 25% -See RT notes for titration -VAP bundle -SPO2 monitoring -02/18 CTA chest showed no evidence of pulmonary embolism, suspected bronchogenic carcinoma with associated obstruction of the right lower lobe proximal bronchus segment, 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 adenopathy and suspected to left lower lobe metastatic nodule -02/26 Bronch->mucous, no lesion noted -02/27 CT chest showed right mainstem bronchus patent with small amount of interval bronchial fluid which may be mucus (this may account for the appearance of the prior CTA chest fluid-filled airway rather than entering bronchial lesion), previously seen complete left lower lobe since related to bronchial occlusion has significantly improved, there is persistent compressive atelectasis in the right lower lung secondary to the pleural effusion, bilateral pleural effusions, right lung pneumonia -CT neck showed no acute changes - IV Steroids stopped GI: Moderate protein calorie malnutrition -PPI -NTR consulted for tube feedings -BR: Senokot S : Hypernatremia (resolved) -FWF 200 ml q4 hr -Monitor intake and output -Renally dose medications -Avoid nephrotoxic medications -Trend BMP ID: Aspiration PNA Sacral Decubitus Ulcer (POA) -S/p Rocephin for 5 days (02/19-02/24) -Monitor WBC and temperature curve -Wound care consulted Endo: NAD -Avoid hypoglycemia -Accu-Cheks every 6 -Avoid hypoglycemia Heme: NAD -Trend CBC -Transfuse hemoglobin less than 7 -SCDs to BLE while in bed The high probability of a clinically significant, sudden or life threatening deterioration of the [resp] system(s) required my full and direct attention, intervention and personal management. The aggregate critical care time was [60] minutes. This time is in addition to time spent performing reported procedures but includes the following: [x] Data Review and interpretation [x] Patient assessment and monitoring of vital signs [x] Documentation [x] Medication orders and management Disposition Plan: ICU Total Time Spent with Patient (Minutes): 60 History Interval history: Patient seen and examined at the bedside. Remains stable on low vent setting, not on any sedation. Open eyes spontaneously and move extremities but does not follow any commands. SR on the monitor this am, VSS. MAIDA overnight Hospitalist Physical - Physical exam Narrative exam: General appearance: Present: no acute distress, well-nourished, obese - EENT Eyes: Present: PERRL - Neck Neck: Present: normal ROM - Respiratory Respiratory effort: normal Respiratory: bilateral: rhonchi - Cardiovascular Rhythm: regular Heart Sounds: Present: S1 & S2 - Extremities Extremities: no ischemia, pulses intact, pulses symmetrical Extremity abnormal: edema - Peripheral Assessment Generalized Edema Type: Non-pitting Edema Degree: 1+ Capillary Refill: < 3 seconds Skin Temperature: Warm Peripheral Pulses: within normal limits - Abdominal General gastrointestinal: soft, non-distended, normal bowel sounds - Integumentary Integumentary: Present: warm, dry - Psychiatric Psychiatric: other (Intubated, unresponsive. Not on any sedations) - Neurologic Neurologic: moves all extremities, other (Intubated, unresponsive. Not on any sedations) - Allied Health Allied health notes reviewed: nursing, case management - Constitutional Vitals: Temp Pulse Resp BP Pulse Ox 98.0 F 80 9 L 97/54 98 03/23/22 07:12 03/23/22 08:40 03/23/22 08:32 03/23/22 08:40 03/23/22 08:40 HEART Score - HEART Score Troponin: Troponin T < 0.010 ng/mL (0.00-0.029) 02/18/22 21:02 Results - Labs CBC & Chem 7: 03/20/22 04:09 03/20/22 04:09 Labs: Laboratory Last Values WBC 6.0 K/mm3 (4.5-11.0) 03/20/22 04:09 RBC 2.90 M/mm3 (3.65-5.03) L 03/20/22 04:09 Hgb 9.6 gm/dl (11.8-15.2) L 03/20/22 04:09 Hct 28.9 % (35.5-45.6) L 03/20/22 04:09 MCV 100 fl (84-94) H 03/20/22 04:09 MCH 33 pg (28-32) H 03/20/22 04:09 MCHC 33 % (32-34) 03/20/22 04:09 RDW 17.4 % (13.2-15.2) H 03/20/22 04:09 Plt Count 339 K/mm3 (140-440) 03/20/22 04:09 Lymph % (Auto) 13.3 % (13.4-35.0) L 03/10/22 03:57 Weld % (Auto) 12.5 % (0.0-7.3) H 03/10/22 03:57 Eos % (Auto) 1.4 % (0.0-4.3) 03/10/22 03:57 Baso % (Auto) 0.4 % (0.0-1.8) 03/10/22 03:57 Lymph # (Auto) 1.3 K/mm3 (1.2-5.4) 03/10/22 03:57 Weld # (Auto) 1.3 K/mm3 (0.0-0.8) H 03/10/22 03:57 Eos # (Auto) 0.1 K/mm3 (0.0-0.4) 03/10/22 03:57 Baso # (Auto) 0.0 K/mm3 (0.0-0.1) 03/10/22 03:57 Add Manual Diff Complete 03/03/22 03:54 Total Counted 100 03/03/22 03:54 Seg Neutrophils % 72.4 % (40.0-70.0) H 03/10/22 03:57 Seg Neuts % (Manual) 95.0 % (40.0-70.0) H 03/03/22 03:54 Band Neutrophils % 0 % 03/03/22 03:54 Lymphocytes % (Manual) 3.0 % (13.4-35.0) L 03/03/22 03:54 Reactive Lymphs % (Man) 0 % 03/03/22 03:54 Monocytes % (Manual) 2.0 % (0.0-7.3) 03/03/22 03:54 Eosinophils % (Manual) 0 % (0.0-4.3) 03/03/22 03:54 Basophils % (Manual) 0 % (0.0-1.8) 03/03/22 03:54 Metamyelocytes % 0 % 03/03/22 03:54 Myelocytes % 0 % 03/03/22 03:54 Promyelocytes % 0 % 03/03/22 03:54 Blast Cells % 0 % 03/03/22 03:54 Nucleated RBC % Not Reportable 03/03/22 03:54 Seg Neutrophils # 7.4 K/mm3 (1.8-7.7) 03/10/22 03:57 Seg Neutrophils # Man 18.5 K/mm3 (1.8-7.7) H 03/03/22 03:54 Band Neutrophils # 0.0 K/mm3 03/03/22 03:54 Lymphocytes # (Manual) 0.6 K/mm3 (1.2-5.4) L 03/03/22 03:54 Abs React Lymphs (Man) 0.0 K/mm3 03/03/22 03:54 Monocytes # (Manual) 0.4 K/mm3 (0.0-0.8) 03/03/22 03:54 Eosinophils # (Manual) 0.0 K/mm3 (0.0-0.4) 03/03/22 03:54 Basophils # (Manual) 0.0 K/mm3 (0.0-0.1) 03/03/22 03:54 Metamyelocytes # 0.0 K/mm3 03/03/22 03:54 Myelocytes # 0.0 K/mm3 03/03/22 03:54 Promyelocytes # 0.0 K/mm3 03/03/22 03:54 Blast Cells # 0.0 K/mm3 03/03/22 03:54 WBC Morphology Not Reportable 03/03/22 03:54 Hypersegmented Neuts Not Reportable 03/03/22 03:54 Hyposegmented Neuts Not Reportable 03/03/22 03:54 Hypogranular Neuts Not Reportable 03/03/22 03:54 Smudge Cells Not Reportable 03/03/22 03:54 Toxic Granulation Not Reportable 03/03/22 03:54 Toxic Vacuolation Not Reportable 03/03/22 03:54 Dohle Bodies Not Reportable 03/03/22 03:54 Pelger-Huet Anomaly Not Reportable 03/03/22 03:54 Lakshmi Rods Not Reportable 03/03/22 03:54 Platelet Estimate Consistent w auto 03/03/22 03:54 Clumped Platelets Not Reportable 03/03/22 03:54 Plt Clumps, EDTA Not Reportable 03/03/22 03:54 Large Platelets Not Reportable 03/03/22 03:54 Giant Platelets Not Reportable 03/03/22 03:54 Platelet Satelliting Not Reportable 03/03/22 03:54 Plt Morphology Comment Not Reportable 03/03/22 03:54 RBC Morphology Not Reportable 03/03/22 03:54 Dimorphic RBCs Not Reportable 03/03/22 03:54 Polychromasia Not Reportable 03/03/22 03:54 Hypochromasia Not Reportable 03/03/22 03:54 Poikilocytosis Not Reportable 03/03/22 03:54 Anisocytosis 1+ 03/03/22 03:54 Microcytosis Not Reportable 03/03/22 03:54 Macrocytosis Not Reportable 03/03/22 03:54 Spherocytes Not Reportable 03/03/22 03:54 Pappenheimer Bodies Not Reportable 03/03/22 03:54 Sickle Cells Not Reportable 03/03/22 03:54 Target Cells Not Reportable 03/03/22 03:54 Tear Drop Cells Not Reportable 03/03/22 03:54 Ovalocytes Not Reportable 03/03/22 03:54 Helmet Cells Not Reportable 03/03/22 03:54 [place] Bodies Not Reportable 03/03/22 03:54 [place] Rings Not Reportable 03/03/22 03:54 [place] Cells Not Reportable 03/03/22 03:54 Bite Cells Not Reportable 03/03/22 03:54 Crenated Cell Not Reportable 03/03/22 03:54 Elliptocytes Not Reportable 03/03/22 03:54 Acanthocytes (Spur) Not Reportable 03/03/22 03:54 Rouleaux Not Reportable 03/03/22 03:54 Hemoglobin C Crystals Not Reportable 03/03/22 03:54 Schistocytes Not Reportable 03/03/22 03:54 Malaria parasites Not Reportable 03/03/22 03:54 Cash Bodies Not Reportable 03/03/22 03:54 Hem Pathologist Commnt No 03/03/22 03:54 PT 16.2 Sec. (12.2-14.9) H 03/11/22 04:02 INR 1.16 (0.87-1.13) H 03/11/22 04:02 ABG pH 7.392 pH Units (7.350-7.450) 03/22/22 14:25 ABG pCO2 54.4 mm Hg 03/22/22 14:25 ABG pO2 150.5 mm Hg (80.0-90.0) H 03/22/22 14:25 ABG HCO3 32.4 mmol/L (20.0-26.0) H 03/22/22 14:25 ABG O2 Saturation 98.8 % (95.0-99.0) 03/22/22 14:25 ABG O2 Content 15.8 (0.0-44) 03/22/22 14:25 ABG Base Excess 6.2 mmol/L (-2.0-3.0) H 03/22/22 14:25 ABG Hemoglobin 11.4 gm/dl (14.0-18.0) L 03/22/22 14:25 ABG Carboxyhemoglobin 1.6 % (0.0-5.0) 03/22/22 14:25 ABG Methemoglobin 0.6 % (0.0-1.5) 03/22/22 14:25 Oxyhemoglobin 96.6 % (95.0-99.0) 03/22/22 14:25 FiO2 30 % 03/22/22 14:25 Sodium 140 mmol/L (137-145) 03/20/22 04:09 Potassium 4.4 mmol/L (3.6-5.0) 03/20/22 04:09 Chloride 101.7 mmol/L (98-107) 03/20/22 04:09 Carbon Dioxide 30 mmol/L (22-30) 03/20/22 04:09 Anion Gap 13 mmol/L 03/20/22 04:09 BUN 18 mg/dL (9-20) 03/20/22 04:09 Creatinine 0.6 mg/dL (0.8-1.3) L 03/20/22 04:09 Estimated GFR > 60 ml/min 03/20/22 04:09 BUN/Creatinine Ratio 30 % 03/20/22 04:09 Glucose 94 mg/dL (75-100) 03/20/22 04:09 POC Glucose 90 mg/dL (70-105) 03/23/22 05:58 Lactic Acid 1.20 mmol/L (0.7-2.0) 02/18/22 21:02 Calcium 8.2 mg/dL (8.4-10.2) L 03/20/22 04:09 Phosphorus 3.50 mg/dL (2.5-4.5) 03/20/22 04:09 Magnesium 2.00 mg/dL (1.7-2.3) 03/20/22 04:09 Total Bilirubin 0.30 mg/dL (0.1-1.2) 03/10/22 03:57 AST 17 units/L (5-40) 03/10/22 03:57 ALT 18 units/L (7-56) 03/10/22 03:57 Alkaline Phosphatase 89 units/L (35-129) 03/10/22 03:57 Ammonia 14.0 umol/L (25-60) L 02/18/22 23:22 Troponin T < 0.010 ng/mL (0.00-0.029) 02/18/22 21:02 Total Protein 6.6 g/dL (6.3-8.2) 03/10/22 03:57 Albumin 1.9 g/dL (3.9-5) L 03/10/22 03:57 Albumin/Globulin Ratio 0.4 % 03/10/22 03:57 Urine Color Dark yellow (Yellow) 02/18/22 Unknown Urine Turbidity Clear (Clear) 02/18/22 Unknown Urine pH 7.0 (5.0-7.0) 02/18/22 Unknown Ur Specific [place]ather 1.015 (1.003-1.030) 02/18/22 Unknown Urine Protein <15 mg/dl mg/dL (Negative) 02/18/22 Unknown Urine Glucose (UA) Negative mg/dL (Negative) 02/18/22 Unknown Urine Ketones Negative mg/dL (Negative) 02/18/22 Unknown Urine Blood Trace (Negative) 02/18/22 Unknown Urine Nitrite Negative (Negative) 02/18/22 Unknown Urine Bilirubin Negative (Negative) 02/18/22 Unknown Urine Urobilinogen < 2.0 mg/dL (<2.0) 02/18/22 Unknown Ur Leukocyte Esterase Negative (Negative) 02/18/22 Unknown Urine WBC (Auto) 2.0 /HPF (0.0-6.0) 02/18/22 Unknown Urine RBC (Auto) 9.0 /HPF (0.0-6.0) 02/18/22 Unknown Urine Mucus Few /HPF 02/18/22 Unknown Urine Opiates Screen Negative 02/18/22 Unknown Urine Methadone Screen Negative 02/18/22 Unknown Ur Barbiturates Screen Negative 02/18/22 Unknown Ur Phencyclidine Scrn Negative 02/18/22 Unknown Ur Amphetamines Screen Negative 02/18/22 Unknown U Benzodiazepines Scrn Negative 02/18/22 Unknown Urine Cocaine Screen Negative 02/18/22 Unknown U Marijuana (THC) Screen Negative 02/18/22 Unknown Drugs of Abuse Note Disclamer 02/18/22 Unknown Plasma/Serum Alcohol < 0.01 % (0-0.07) 02/18/22 21:02 Summers/IV: Voiding Method Indwelling Catheter Active Medications - Current Medications Current Medications: Generic Name Dose Route Start Last Admin Trade Name Freq PRN Reason Stop Dose Admin Acetaminophen 650 mg 03/03/22 09:00 Acetaminophen 325 Mg/10.15 Ml Oral Liqd Unit Dose FEEDTUBE Q4H PRN Pain, Mild (1-3); TEMP > 100.4 Albuterol 2.5 mg 03/12/22 20:00 03/23/22 08:32 Albuterol 2.5 Mg/3 Ml Nebu IH 2.5 mg Q6HRT LAZARUS Administration Famotidine 20 mg 02/25/22 10:00 03/23/22 09:25 Famotidine 20 Mg Tab FEEDTUBE 20 mg BID LAZARUS Administration Heparin Sodium (Porcine) 5,000 unit 02/19/22 06:00 03/23/22 06:14 Heparin 5,000 Unit/1 Ml Vial SUB-Q 5,000 unit Q8HR LAZARUS Administration Hydrophilic Ointment 1 applic 02/24/22 15:05 Lip Therapy Vaseline TP Q2HR PRN Dry Lips Levetiracetam 500 mg 02/25/22 22:00 03/23/22 09:25 Levetiracetam 500 Mg/5 Ml Oral Liqd FEEDTUBE 500 mg BID LAZARUS Administration Levothyroxine Sodium 25 mcg 02/26/22 06:00 03/23/22 06:14 Levothyroxine 25 Mcg Tab FEEDTUBE 25 mcg QAM@0600 LAZARUS Administration Magnesium Hydroxide 30 ml 02/19/22 02:02 Magnesium Hydroxide (Mom) Oral Liqd Udc PO Q4H PRN Constipation Midodrine 2.5 mg 03/19/22 12:00 03/23/22 09:25 Midodrine 2.5 Mg Tab FEEDTUBE 2.5 mg TID@0800,1200,1600 LAZARUS Administration Multi-Ingred Cream/Lotion/Oil/Oint 1 applic 02/24/22 15:05 Mineral Oil/Petrolatum, White Ophth Oint 3.5 Gm OU Q4HR PRN Dry Eye(s) Ondansetron HCl 4 mg 02/19/22 02:02 Ondansetron 4 Mg/2 Ml Inj IV Q8H PRN Nausea And Vomiting Pravastatin Sodium 40 mg 02/25/22 22:00 03/22/22 21:02 Pravastatin 40 Mg Tab FEEDTUBE 40 mg QHS LAZARUS Administration Senna/Docusate Sodium 1 tab 02/24/22 22:00 03/23/22 09:25 Sennosides/Docusate Sodium 8.6/50 Mg Tab FEEDTUBE 1 tab BID LAZARUS Administration Sodium Chloride 10 ml 02/19/22 10:00 03/23/22 09:27 Sodium Chloride 0.9% 10 Ml Flush Syringe IV 10 ml BID LAZARUS Administration Sodium Chloride 10 ml 02/19/22 02:02 03/03/22 14:21 Sodium Chloride 0.9% 10 Ml Flush Syringe IV 10 ml PRN PRN Administration LINE FLUSH Nutrition/Malnutrition Assess - Dietary Evaluation Nutrition/Malnutrition Findings: Nutrition Notes Start: 02/19/22 14:29 Freq: Status: Active Protocol: Document 03/21/22 15:43 IVAN (Rec: 03/21/22 15:45 IVAN [id number]) Nutrition Notes Initial or Follow up Reassessment Current Diagnosis Hypertension,Respiratory Failure,Hyperlipidemia Other Pertinent Diagnosis Asp pneu, acute encephalopathy , seizure d/o, partial blindness Current Diet TF - Vital AF 1.2 at 50ml/hr Labs/Tests Reviewed Pertinent Medications Reviewed Height 5 ft 3 in Weight 63.2 kg [place] Body Weight (kg) 56.36 BMI 24.7 Weight Status Appropriate Subjective/Other Information Pt remains on vent support; still awaiting decision on guardianship for trach/PEG placement. Pt continues to tolerate TF at goal rate. Last BM was 03/18 per RN verbal report. Percent of energy/protein needs met: 90% energy 100% pro Burn Absent Trauma Absent #1 Nutrition Diagnosis Inadequate oral intake Diagnosis Progress(for reassessment Continues documentation) Is patient on ventilator? Yes Is Patient Ambulatory and/or Out of Bed No REE-([facility]-confined to bed) [phone] Calculation Used for Recommendations [facility] Additional Notes Pro needs 1.2-2g/k-126g/ day Fluid needs 1ml/kcal Nutrition Intervention Nutrition Support: Continue Vital AF 1.2 at 50ml/ hr with 75ml water flush q4h. Kcal 1,440 Protein (gm) 90 Carbohydrates (gm) 133 Fat (gm) 65 Fluid (mL) 973 Fiber (gm) 6 Goal #1 TF tolerance Goal #2 TF to meet at least 75% energy and pro needs Follow-Up By: 03/28/22 Additional Comments F/U: stable TF, trach/PEG placement, vent status, wt, BM <JOAQUIN ROBIN - Last Filed: 03/24/22 07:24> Assessment and Plan Assessment and plan: I saw and evaluated the patient. I agree with the findings and the plan of care as documented in the Nurse Practitioner's~note, with the following corrections and additions. Hospitalist Physical - Constitutional Vitals: Temp Pulse Resp BP Pulse Ox 98.5 F 83 19 131/90 93 03/24/22 07:02 03/24/22 06:01 03/24/22 06:01 03/24/22 06:01 03/24/22 06:01 HEART Score - HEART Score Troponin: Troponin T < 0.010 ng/mL (0.00-0.029) 02/18/22 21:02 Results - Labs CBC & Chem 7: 03/24/22 03:47 03/24/22 03:47 Labs: Laboratory Last Values WBC 6.6 K/mm3 (4.5-11.0) 03/24/22 03:47 RBC 3.18 M/mm3 (3.65-5.03) L 03/24/22 03:47 Hgb 10.1 gm/dl (11.8-15.2) L 03/24/22 03:47 Hct 31.1 % (35.5-45.6) L 03/24/22 03:47 MCV 98 fl (84-94) H 03/24/22 03:47 MCH 32 pg (28-32) 03/24/22 03:47 MCHC 33 % (32-34) 03/24/22 03:47 RDW 17.4 % (13.2-15.2) H 03/24/22 03:47 Plt Count 356 K/mm3 (140-440) 03/24/22 03:47 Lymph % (Auto) 13.3 % (13.4-35.0) L 03/10/22 03:57 Weld % (Auto) 12.5 % (0.0-7.3) H 03/10/22 03:57 Eos % (Auto) 1.4 % (0.0-4.3) 03/10/22 03:57 Baso % (Auto) 0.4 % (0.0-1.8) 03/10/22 03:57 Lymph # (Auto) 1.3 K/mm3 (1.2-5.4) 03/10/22 03:57 Weld # (Auto) 1.3 K/mm3 (0.0-0.8) H 03/10/22 03:57 Eos # (Auto) 0.1 K/mm3 (0.0-0.4) 03/10/22 03:57 Baso # (Auto) 0.0 K/mm3 (0.0-0.1) 03/10/22 03:57 Add Manual Diff Complete 03/03/22 03:54 Total Counted 100 03/03/22 03:54 Seg Neutrophils % 72.4 % (40.0-70.0) H 03/10/22 03:57 Seg Neuts % (Manual) 95.0 % (40.0-70.0) H 03/03/22 03:54 Band Neutrophils % 0 % 03/03/22 03:54 Lymphocytes % (Manual) 3.0 % (13.4-35.0) L 03/03/22 03:54 Reactive Lymphs % (Man) 0 % 03/03/22 03:54 Monocytes % (Manual) 2.0 % (0.0-7.3) 03/03/22 03:54 Eosinophils % (Manual) 0 % (0.0-4.3) 03/03/22 03:54 Basophils % (Manual) 0 % (0.0-1.8) 03/03/22 03:54 Metamyelocytes % 0 % 03/03/22 03:54 Myelocytes % 0 % 03/03/22 03:54 Promyelocytes % 0 % 03/03/22 03:54 Blast Cells % 0 % 03/03/22 03:54 Nucleated RBC % Not Reportable 03/03/22 03:54 Seg Neutrophils # 7.4 K/mm3 (1.8-7.7) 03/10/22 03:57 Seg Neutrophils # Man 18.5 K/mm3 (1.8-7.7) H 03/03/22 03:54 Band Neutrophils # 0.0 K/mm3 03/03/22 03:54 Lymphocytes # (Manual) 0.6 K/mm3 (1.2-5.4) L 03/03/22 03:54 Abs React Lymphs (Man) 0.0 K/mm3 03/03/22 03:54 Monocytes # (Manual) 0.4 K/mm3 (0.0-0.8) 03/03/22 03:54 Eosinophils # (Manual) 0.0 K/mm3 (0.0-0.4) 03/03/22 03:54 Basophils # (Manual) 0.0 K/mm3 (0.0-0.1) 03/03/22 03:54 Metamyelocytes # 0.0 K/mm3 03/03/22 03:54 Myelocytes # 0.0 K/mm3 03/03/22 03:54 Promyelocytes # 0.0 K/mm3 03/03/22 03:54 Blast Cells # 0.0 K/mm3 03/03/22 03:54 WBC Morphology Not Reportable 03/03/22 03:54 Hypersegmented Neuts Not Reportable 03/03/22 03:54 Hyposegmented Neuts Not Reportable 03/03/22 03:54 Hypogranular Neuts Not Reportable 03/03/22 03:54 Smudge Cells Not Reportable 03/03/22 03:54 Toxic Granulation Not Reportable 03/03/22 03:54 Toxic Vacuolation Not Reportable 03/03/22 03:54 Dohle Bodies Not Reportable 03/03/22 03:54 Pelger-Huet Anomaly Not Reportable 03/03/22 03:54 Lakshmi Rods Not Reportable 03/03/22 03:54 Platelet Estimate Consistent w auto 03/03/22 03:54 Clumped Platelets Not Reportable 03/03/22 03:54 Plt Clumps, EDTA Not Reportable 03/03/22 03:54 Large Platelets Not Reportable 03/03/22 03:54 Giant Platelets Not Reportable 03/03/22 03:54 Platelet Satelliting Not Reportable 03/03/22 03:54 Plt Morphology Comment Not Reportable 03/03/22 03:54 RBC Morphology Not Reportable 03/03/22 03:54 Dimorphic RBCs Not Reportable 03/03/22 03:54 Polychromasia Not Reportable 03/03/22 03:54 Hypochromasia Not Reportable 03/03/22 03:54 Poikilocytosis Not Reportable 03/03/22 03:54 Anisocytosis 1+ 03/03/22 03:54 Microcytosis Not Reportable 03/03/22 03:54 Macrocytosis Not Reportable 03/03/22 03:54 Spherocytes Not Reportable 03/03/22 03:54 Pappenheimer Bodies Not Reportable 03/03/22 03:54 Sickle Cells Not Reportable 03/03/22 03:54 Target Cells Not Reportable 03/03/22 03:54 Tear Drop Cells Not Reportable 03/03/22 03:54 Ovalocytes Not Reportable 03/03/22 03:54 Helmet Cells Not Reportable 03/03/22 03:54 [place] Bodies Not Reportable 03/03/22 03:54 [place] Rings Not Reportable 03/03/22 03:54 [place] Cells Not Reportable 03/03/22 03:54 Bite Cells Not Reportable 03/03/22 03:54 Crenated Cell Not Reportable 03/03/22 03:54 Elliptocytes Not Reportable 03/03/22 03:54 Acanthocytes (Spur) Not Reportable 03/03/22 03:54 Rouleaux Not Reportable 03/03/22 03:54 Hemoglobin C Crystals Not Reportable 03/03/22 03:54 Schistocytes Not Reportable 03/03/22 03:54 Malaria parasites Not Reportable 03/03/22 03:54 Cash Bodies Not Reportable 03/03/22 03:54 Hem Pathologist Commnt No 03/03/22 03:54 PT 16.2 Sec. (12.2-14.9) H 03/11/22 04:02 INR 1.16 (0.87-1.13) H 03/11/22 04:02 ABG pH 7.392 pH Units (7.350-7.450) 03/22/22 14:25 ABG pCO2 54.4 mm Hg 03/22/22 14:25 ABG pO2 150.5 mm Hg (80.0-90.0) H 03/22/22 14:25 ABG HCO3 32.4 mmol/L (20.0-26.0) H 03/22/22 14:25 ABG O2 Saturation 98.8 % (95.0-99.0) 03/22/22 14:25 ABG O2 Content 15.8 (0.0-44) 03/22/22 14:25 ABG Base Excess 6.2 mmol/L (-2.0-3.0) H 03/22/22 14:25 ABG Hemoglobin 11.4 gm/dl (14.0-18.0) L 03/22/22 14:25 ABG Carboxyhemoglobin 1.6 % (0.0-5.0) 03/22/22 14:25 ABG Methemoglobin 0.6 % (0.0-1.5) 03/22/22 14:25 Oxyhemoglobin 96.6 % (95.0-99.0) 03/22/22 14:25 FiO2 30 % 03/22/22 14:25 Sodium 139 mmol/L (137-145) 03/24/22 03:47 Potassium 4.3 mmol/L (3.6-5.0) 03/24/22 03:47 Chloride 101.7 mmol/L (98-107) 03/24/22 03:47 Carbon Dioxide 30 mmol/L (22-30) 03/24/22 03:47 Anion Gap 12 mmol/L 03/24/22 03:47 BUN 20 mg/dL (9-20) 03/24/22 03:47 Creatinine 0.5 mg/dL (0.8-1.3) L 03/24/22 03:47 Estimated GFR > 60 ml/min 03/24/22 03:47 BUN/Creatinine Ratio 40 % 03/24/22 03:47 Glucose 99 mg/dL (75-100) 03/24/22 03:47 POC Glucose 90 mg/dL (70-105) 03/23/22 17:09 Lactic Acid 1.20 mmol/L (0.7-2.0) 02/18/22 21:02 Calcium 8.5 mg/dL (8.4-10.2) 03/24/22 03:47 Phosphorus 3.50 mg/dL (2.5-4.5) 03/20/22 04:09 Magnesium 2.00 mg/dL (1.7-2.3) 03/20/22 04:09 Total Bilirubin 0.30 mg/dL (0.1-1.2) 03/10/22 03:57 AST 17 units/L (5-40) 03/10/22 03:57 ALT 18 units/L (7-56) 03/10/22 03:57 Alkaline Phosphatase 89 units/L (35-129) 03/10/22 03:57 Ammonia 14.0 umol/L (25-60) L 02/18/22 23:22 Troponin T < 0.010 ng/mL (0.00-0.029) 02/18/22 21:02 Total Protein 6.6 g/dL (6.3-8.2) 03/10/22 03:57 Albumin 1.9 g/dL (3.9-5) L 03/10/22 03:57 Albumin/Globulin Ratio 0.4 % 03/10/22 03:57 Urine Color Dark yellow (Yellow) 02/18/22 Unknown Urine Turbidity Clear (Clear) 02/18/22 Unknown Urine pH 7.0 (5.0-7.0) 02/18/22 Unknown Ur Specific [place] 1.015 (1.003-1.030) 02/18/22 Unknown Urine Protein <15 mg/dl mg/dL (Negative) 02/18/22 Unknown Urine Glucose (UA) Negative mg/dL (Negative) 02/18/22 Unknown Urine Ketones Negative mg/dL (Negative) 02/18/22 Unknown Urine Blood Trace (Negative) 02/18/22 Unknown Urine Nitrite Negative (Negative) 02/18/22 Unknown Urine Bilirubin Negative (Negative) 02/18/22 Unknown Urine Urobilinogen < 2.0 mg/dL (<2.0) 02/18/22 Unknown Ur Leukocyte Esterase Negative (Negative) 02/18/22 Unknown Urine WBC (Auto) 2.0 /HPF (0.0-6.0) 02/18/22 Unknown Urine RBC (Auto) 9.0 /HPF (0.0-6.0) 02/18/22 Unknown Urine Mucus Few /HPF 02/18/22 Unknown Urine Opiates Screen Negative 02/18/22 Unknown Urine Methadone Screen Negative 02/18/22 Unknown Ur Barbiturates Screen Negative 02/18/22 Unknown Ur Phencyclidine Scrn Negative 02/18/22 Unknown Ur Amphetamines Screen Negative 02/18/22 Unknown U Benzodiazepines Scrn Negative 02/18/22 Unknown Urine Cocaine Screen Negative 02/18/22 Unknown U Marijuana (THC) Screen Negative 02/18/22 Unknown Drugs of Abuse Note Disclamer 02/18/22 Unknown Plasma/Serum Alcohol < 0.01 % (0-0.07) 02/18/22 21:02 Summers/IV: Voiding Method Indwelling Catheter Active Medications - Current Medications Current Medications: Generic Name Dose Route Start Last Admin Trade Name Freq PRN Reason Stop Dose Admin Acetaminophen 650 mg 03/03/22 09:00 Acetaminophen 325 Mg/10.15 Ml Oral Liqd Unit Dose FEEDTUBE Q4H PRN Pain, Mild (1-3); TEMP > 100.4 Albuterol 2.5 mg 03/12/22 20:00 03/24/22 07:16 Albuterol 2.5 Mg/3 Ml Nebu IH 2.5 mg Q6HRT LAZARUS Administration Famotidine 20 mg 02/25/22 10:00 03/23/22 21:08 Famotidine 20 Mg Tab FEEDTUBE 20 mg BID LAZARUS Administration Heparin Sodium (Porcine) 5,000 unit 02/19/22 06:00 03/24/22 05:33 Heparin 5,000 Unit/1 Ml Vial SUB-Q 5,000 unit Q8HR LAZARUS Administration Hydrophilic Ointment 1 applic 02/24/22 15:05 Lip Therapy Vaseline TP Q2HR PRN Dry Lips Levetiracetam 500 mg 02/25/22 22:00 03/23/22 21:08 Levetiracetam 500 Mg/5 Ml Oral Liqd FEEDTUBE 500 mg BID LAZARUS Administration Levothyroxine Sodium 25 mcg 02/26/22 06:00 03/24/22 05:33 Levothyroxine 25 Mcg Tab FEEDTUBE 25 mcg QAM@0600 LAZARUS Administration Magnesium Hydroxide 30 ml 02/19/22 02:02 Magnesium Hydroxide (Mom) Oral Liqd Udc PO Q4H PRN Constipation Midodrine 2.5 mg 03/19/22 12:00 03/23/22 17:49 Midodrine 2.5 Mg Tab FEEDTUBE 2.5 mg TID@0800,1200,1600 LAZARUS Administration Multi-Ingred Cream/Lotion/Oil/Oint 1 applic 02/24/22 15:05 Mineral Oil/Petrolatum, White Ophth Oint 3.5 Gm OU Q4HR PRN Dry Eye(s) Ondansetron HCl 4 mg 02/19/22 02:02 Ondansetron 4 Mg/2 Ml Inj IV Q8H PRN Nausea And Vomiting Pravastatin Sodium 40 mg 02/25/22 22:00 03/23/22 21:08 Pravastatin 40 Mg Tab FEEDTUBE 40 mg QHS LAZARUS Administration Senna/Docusate Sodium 1 tab 02/24/22 22:00 03/23/22 21:08 Sennosides/Docusate Sodium 8.6/50 Mg Tab FEEDTUBE 1 tab BID LAZARUS Administration Sodium Chloride 10 ml 02/19/22 10:00 03/23/22 21:08 Sodium Chloride 0.9% 10 Ml Flush Syringe IV 10 ml BID LAZARUS Administration Sodium Chloride 10 ml 02/19/22 02:02 03/03/22 14:21 Sodium Chloride 0.9% 10 Ml Flush Syringe IV 10 ml PRN PRN Administration LINE FLUSH Nutrition/Malnutrition Assess - Dietary Evaluation Nutrition/Malnutrition Findings: Nutrition Notes Start: 02/19/22 14:29 Freq: Status: Active Protocol: Document 03/21/22 15:43 IVAN (Rec: 03/21/22 15:45 IVAN [email or web address]) Nutrition Notes Initial or Follow up Reassessment Current Diagnosis Hypertension,Respiratory Failure,Hyperlipidemia Other Pertinent Diagnosis Asp pneu, acute encephalopathy , seizure d/o, partial blindness Current Diet TF - Vital AF 1.2 at 50ml/hr Labs/Tests Reviewed Pertinent Medications Reviewed Height 5 ft 3 in Weight 63.2 kg [place] Body Weight (kg) 56.36 BMI 24.7 Weight Status Appropriate Subjective/Other Information Pt remains on vent support; still awaiting decision on guardianship for trach/PEG placement. Pt continues to tolerate TF at goal rate. Last BM was 03/18 per RN verbal report. Percent of energy/protein needs met: 90% energy 100% pro Burn Absent Trauma Absent #1 Nutrition Diagnosis Inadequate oral intake Diagnosis Progress(for reassessment Continues documentation) Is patient on ventilator? Yes Is Patient Ambulatory and/or Out of Bed No REE-([facility]-confined to bed) [phone] Calculation Used for Recommendations [facility] Additional Notes Pro needs 1.2-2g/k-126g/ day Fluid needs 1ml/kcal Nutrition Intervention Nutrition Support: Continue Vital AF 1.2 at 50ml/ hr with 75ml water flush q4h. Kcal 1,440 Protein (gm) 90 Carbohydrates (gm) 133 Fat (gm) 65 Fluid (mL) 973 Fiber (gm) 6 Goal #1 TF tolerance Goal #2 TF to meet at least 75% energy and pro needs Follow-Up By: 03/28/22 Additional Comments F/U: stable TF, trach/PEG placement, vent status, wt, BM
--- NOTE | 2022-03-23 12:22 | Progress Note ---
Assessment and Plan 61 y/o male with abnormal CT of chest. 03/23/2022: Day #27 of intubation. Seems to be sedated orally intubated. Seems like tolerated PSV/CPAP reasonably well yesterday. Arterial blood gases did show evidence of compensated respiratory acidosis and hyperoxia at 30% FiO2. Patient is now at 25% FiO2 with sats in low 90s. We will continue with the ventilatory support. May consider another trial of PSV and if continue to tolerated and is mentally awake may consider extubation in near future. 03/22/2022: Day 26 of intubation. Appears to open eyes. Patient has been orally intubated. Seems to be tolerating PSV/CPAP with tidal volume around 300 to 400 mL, respiratory rate around 20 and minute ventilation of 7.5 L. Will order art erial blood gases to assess the ventilation. And oxygenation. 03/21/22: Day 25 of intubation. No new updates from the hospital about guardianship. Wound care saw on yesterday. Continue daily PSV trials as tolerated. Guarded prognosis. 03/20/22: Day 24 of intubation. No new recommendations. Still awaiting hospital update in regards to guardianship so that decisions can be made. Continue supp ortive measures. Wound care to see today. 03/19/22: Day 23 of intubation. Prognosis is still guarded. Will discuss with RT about attempts at daily PSV trials. Per notes, Wound care to see , wound was present on admission. 03/18/22: Day 22 of intubation. Prognosis remains guarded. Not able to obtain trach and peg with consent. Continue daily PSV trials as tolerated. 03/17/22: Day 21 of intubation. Still awaiting some form of decision maker for trach and peg placement. Guarded prognosis. 03/16/22: Day 20 of intubation. BP stable. Continue midodrine. Awaiting emergency guardianship from Court to obtain consent for trach and peg. Guarded prognosis. 03/15/22: Day 19 of intubation. BP now is marginal more regularly. Will give an additional liter bolus of LR now. May need to increase Midodrine back to 5. Needs trach in order to be safely weaned from ventilator. Will need peg tube placement in addition to trach. Prognosis remains guarded. Continue PSV trials as tolerated. 03/14/22: Day 18 of intubation. Vitals stable and mental status is unchanged. Still in need of tracheostomy as well as peg tube placement. No guardian appointed yet. 03/13/22: Day 17 of intubation. Agree with bolus and restarting of midodrine. was stopped previously secondary to bradycardia. If patient spikes temp, will culture blood and urine and repeat CXR. Continue daily PSV trials to assess ability for vent liberation. Continues to need trach however no family/guardian to provide consent. Guarded prognosis. 03/12/22: Day 16 of intubation. Following up with hospital in regards to guardian. Continue supportive measures. Guarded prognosis. 03/11/22: hospital now attempting to find emergency guardian to have consent for trach as ethics committee cannot comment on this matter so unable to help. Until then will remain intubated orally. Failed PSV yesterday, will continue to attempt on daily basis. Unfortunate situation. Guarded prognosis. 03/10/22: Today nuñez day 14 of intubation. Given patient's mental state and increased risk of aspiration, the likelihood of conventional extubation with success is very very slim and the patient has already failed this in an extremely short period of time (less than 1 hour). I suspect that he will fail again if tried and could create more difficult reintubation as he was a difficult reintubation on his failed extubation attempt. To prevent further decline and potential complications of prolonged mechanical ventilation, will discuss with ethics and the hospital to use 2 physician consent to obtain trach and peg for this patient with hopes of liberating him from the mechanical ventilator. he has very minimal vent requirements but as been stated several times above, he continues to aspirate and failed conventional extubation almost immediately. Will consult surgery today. Dr. Mancia is prepared to sign consent as well as myself. Hopeful surgery will be on board with this. Continue supportive care for now. Attempt daily PSV trials. 03/07/22: Daily PSV trials as tolerated. Still no one to step up as adult friend. patient has now been intubated since 02/24/22 and is approaching the time period in which prolonged mechanical ventilation could lead to significant complications that could be detrimental to health (infection, stenosis, malacia etc). Will discuss again with ethics but in regards to medical necessity, may need to consider two physician consent if no one is able to claim responsibility for this patient. He is a full code and we must work in his best interest to prevent further harm. Continue supportive measures but he is not a candidate for conventional extubation given his mental state, despite being on minimal support. He has already failed this before. 03/06/22: PSV trials daily. Will discuss with RT. Spoke with ethics. Plan in place and awaiting on news from [facility] and state. Continue supportive measures. Patient has been intubated since 02/24/22 and is approaching the 2 week shadi of intubation will need to make decisions soon to avoid unnecessary compl ications related to prolonged intubation. 03/05/22: Will follow up with ethics today. Awaiting some guidance about consent for trach and peg. This is a medical necessity to liberate patient from mechanical ventilation. Continue supportive measures. Ok with daily PSV trials 03/04/22: Follow up with ethics later this afternoon. Spoke with RT and patient does have cuff leak, will stop steroids. Stopping midodrine as BP is stable and bradycardia likely from this. 03/03/22: Await ethics eval. CM has spoken with state as well. Daily cuff leaks. Will start to wean steroids tomorrow. Midodrine can cause bradycardia. If continues or worsens will stop. Guarded prognosis. 03/02/22: Continue supportive measures. Await ethics consult before surgery consult for trach and peg. no further need for fluid boluses. Will continue stress dose steroids but have daily air leak checks by RT. Still will need trach, will not attempt extubation again. Guarded prognosis. 03/01/22: Patient is having increased urine output. This could be the cause of new onset hypotension. Will bolus 2 more liters of LR now and reassess. If this continues may need to work up for SIADH including repeat head CT. Follow up ethics review of case. Will need trach for ventilator liberation. Overall prognosis remains guarded. 02/28/22: Will obtain CT neck, noncontrast to look for airway edema or other possible etiologies for failure. Needs ethics consult as given patient's mental state, inability to clear secretions appropriately, will need trach now that he has failed extubation. However he has no family and no POA so no one to give consent. Continue supportive measures. Guarded prognosis. 02/27/22: Continue improvement of oxygenation. Will drop PEEP down today with goal of being at 6 by in the morning. Will repeat CT scan to confirm improvement as no endobronchial lesion was seen, but also to make sure no parenchymal mass. There was no evidence of extrinsic compression during bronch. Likely extubation tomorrow post CT. 02/26/22: Repeat CXR now. Wean Vent as tolerated. Hopeful extubation soon. Mucous removed. NO ENDOBRONCHIAL LESION/MASS 02/25/22: Bronch tentatively planned for tomorrow with therapeutic scope. Awaiting GI lab to give a time. NPO after midnight. Continue high PEEP 02/24/22: WIll attempt to bronch tomorrow morning. NPO after midnight. Just received word from GI lab they are not able to do bronch tomorrow. Cancel NPO order. Continue to feed patient. Repeat ABG in AM along with CXR. 02/21/22: No new pulm recs for today. Please obtain repeat CXR likely on Thursday. If patient happens to get worse, likely not a candidate for bipap given his weak cough and mental state and inability to communicate. If worsens and re quires intubation, will bronch then under emergent circumstances if no POA or family is able to be located. Continue CPT. Will discuss with RT about NT suctioning. 02/20/22: Saw speech while on the floor. Would like patient to be NPO now. Discussed with nurse on floor and with IMS. Same recs pulm way as yesterday. Would benefit from bronch if able to get consent as this is not emergent. Con jerilynue CPT and q shift NT suctioning. Reviewed admission in the past and of note, patient was recently admitted last month and had a CXR done on the 29 of January that was normal. Given this patient's medical history and the history that I obtained from the nursing staff that at the care home he was eating solid foods, I suspect that this is aspiration, possibly of a foreign body (most likely food) with atelectasis of the right lower lobe. It is highly unlikely that a mass evolved in size in less than a months time and patient, besides age, has no real risk factors for lung carcinoma. Discussed with the nurse and unfortunately there is no identifiable person that is able to give consent. Bronchoscopy is needed in the case to evaluate to see if lung mass is there vs foreign body, but at this time not able to do. In the meanwhile will recommend the following. 1. Will order CPT with neb therapy 3x daily 2. Suggest maybe NT suctioning q shift. May use nasal trumpet, however do not leave this device in the patient 3. Aspiration precautions 4. Consider speech eval to assess swallowing. Will continue to follow. CCT 31 minutes. Subjective Date of service: 03/23/22 Principal diagnosis: f/u Acute respiratory failure Interval history: No significant change currently sleeping back on PRVC. Seems to have tolerated CPAP with PSV yesterday arterial blood gases show evidence of compensated respiratory acidosis and hyperoxia. Now on 25% FiO2. Objective - Exam Narrative Exam: General appearance: Present: no acute distress, well-nourished, obese - EENT Eyes: Present: PERRL - Neck Neck: Present: normal ROM - Respiratory Respiratory effort: normal Respiratory: bilateral: rhonchi - Cardiovascular Rhythm: regular Heart Sounds: Present: S1 & S2 - Extremities Extremities: no ischemia, pulses intact, pulses symmetrical Extremity abnormal: edema - Peripheral Assessment Generalized Edema Type: Non-pitting Edema Degree: 1+ Capillary Refill: < 3 seconds Skin Temperature: Warm Peripheral Pulses: within normal limits - Abdominal General gastrointestinal: soft, non-distended, normal bowel sounds - Integumentary Integumentary: Present: warm, dry - Psychiatric Psychiatric: other (Intubated, unresponsive. Not on any sedations) - Neurologic Neurologic: moves all extremities, other (Intubated, unresponsive. Not on any sedations) - Allied Health Allied health notes reviewed: nursing, case management Vital Signs - 12hr 03/23/22 03/23/22 03/23/22 01:00 02:00 03:00 Temperature Pulse Rate 72 74 76 Pulse Rate [ 75 Anterior Bilateral Throughout] Pulse Rate [ Bilateral Throughout] Pulse Rate [ From Monitor] Respiratory 15 14 15 Rate Respiratory 14 Rate [Anterior Bilateral Throughout] Respiratory Rate [Bilateral Throughout] Blood Pressure 99/50 99/50 99/59 O2 Sat by Pulse 98 98 98 Oximetry 03/23/22 03/23/22 03/23/22 04:00 05:00 06:00 Temperature 98.3 F Pulse Rate 78 77 79 Pulse Rate [ Anterior Bilateral Throughout] Pulse Rate [ Bilateral Throughout] Pulse Rate [ 77 From Monitor] Respiratory 14 14 11 L Rate Respiratory Rate [Anterior Bilateral Throughout] Respiratory Rate [Bilateral Throughout] Blood Pressure 107/41 85/40 85/40 O2 Sat by Pulse 96 97 99 Oximetry 03/23/22 03/23/22 03/23/22 07:00 07:12 08:00 Temperature 98.0 F Pulse Rate 77 73 Pulse Rate [ Anterior Bilateral Throughout] Pulse Rate [ Bilateral Throughout] Pulse Rate [ From Monitor] Respiratory 14 14 Rate Respiratory Rate [Anterior Bilateral Throughout] Respiratory Rate [Bilateral Throughout] Blood Pressure 90/55 97/54 O2 Sat by Pulse 93 96 Oximetry 03/23/22 03/23/22 03/23/22 08:10 08:30 08:32 Temperature Pulse Rate 73 Pulse Rate [ 72 Anterior Bilateral Throughout] Pulse Rate [ 73 Bilateral Throughout] Pulse Rate [ From Monitor] Respiratory 9 L Rate Respiratory 9 L Rate [Anterior Bilateral Throughout] Respiratory 9 L Rate [Bilateral Throughout] Blood Pressure 97/54 O2 Sat by Pulse 98 97 Oximetry 03/23/22 03/23/22 03/23/22 08:40 09:00 10:00 Temperature Pulse Rate 80 80 83 Pulse Rate [ Anterior Bilateral Throughout] Pulse Rate [ Bilateral Throughout] Pulse Rate [ From Monitor] Respiratory 15 15 Rate Respiratory Rate [Anterior Bilateral Throughout] Respiratory Rate [Bilateral Throughout] Blood Pressure 97/54 93/64 88/61 O2 Sat by Pulse 98 97 86 Oximetry 03/23/22 03/23/22 03/23/22 11:00 11:53 12:10 Temperature Pulse Rate 72 69 74 Pulse Rate [ Anterior Bilateral Throughout] Pulse Rate [ Bilateral Throughout] Pulse Rate [ From Monitor] Respiratory 11 L 11 L Rate Respiratory Rate [Anterior Bilateral Throughout] Respiratory Rate [Bilateral Throughout] Blood Pressure 97/52 97/52 O2 Sat by Pulse 95 97 91 Oximetry 03/23/22 12:11 Temperature 98.8 F Pulse Rate Pulse Rate [ Anterior Bilateral Throughout] Pulse Rate [ Bilateral Throughout] Pulse Rate [ From Monitor] Respiratory Rate Respiratory Rate [Anterior Bilateral Throughout] Respiratory Rate [Bilateral Throughout] Blood Pressure O2 Sat by Pulse Oximetry Constitutional: alert, other (critically ill on ventilator) Eyes: non-icteric ENT: oropharynx moist Neck: supple Effort: normal Ascultation: Bilateral: diminished breath sounds, rhonchi Cardiovascular: regular rate and rhythm (no mrg) Gastrointestinal: normoactive bowel sounds, soft, non-tender (on o2 vest in marguer[place] ce), non-distended Integumentary: normal Extremities: no cyanosis, no edema Neurologic: other (awake) Psychiatric: other (unable to assess) CBC and BMP: 03/20/22 04:09 03/20/22 04:09 ABG, PT/INR, D-dimer: ABG ABG pH 7.392 pH Units (7.350-7.450) 03/22/22 14:25 ABG pCO2 54.4 mm Hg 03/22/22 14:25 ABG pO2 150.5 mm Hg (80.0-90.0) H 03/22/22 14:25 ABG O2 Saturation 98.8 % (95.0-99.0) 03/22/22 14:25 PT/INR, D-dimer PT 16.2 Sec. (12.2-14.9) H 03/11/22 04:02 INR 1.16 (0.87-1.13) H 03/11/22 04:02 Abnormal lab findings: Abnormal Labs 02/18/22 02/18/22 02/18/22 19:34 21:02 21:02 WBC RBC Hgb Hct MCV 101 H MCH 34 H MCHC RDW 16.1 H Lymph % (Auto) [place] % (Auto) 12.4 H Lymph # (Auto) [place] # (Auto) 1.2 H Seg Neutrophils % 73.0 H Seg Neuts % (Manual) Lymphocytes % (Manual) Seg Neutrophils # Seg Neutrophils # Man Lymphocytes # (Manual) PT 16.9 H INR 1.20 H ABG pH ABG pO2 ABG HCO3 ABG O2 Saturation ABG Base Excess ABG Hemoglobin Oxyhemoglobin Sodium Potassium Chloride Carbon Dioxide BUN Creatinine Glucose POC Glucose 116 H Calcium Phosphorus AST ALT Ammonia Albumin 02/18/22 02/18/22 02/18/22 21:02 22:45 23:22 WBC RBC Hgb Hct MCV MCH MCHC RDW Lymph % (Auto) [place] % (Auto) Lymph # (Auto) [place] # (Auto) Seg Neutrophils % Seg Neuts % (Manual) Lymphocytes % (Manual) Seg Neutrophils # Seg Neutrophils # Man Lymphocytes # (Manual) PT INR ABG pH ABG pO2 55.6 L ABG HCO3 28.4 H ABG O2 Saturation 91.5 L ABG Base Excess 3.8 H ABG Hemoglobin 13.2 L Oxyhemoglobin 89.6 L Sodium Potassium 5.1 H Chloride Carbon Dioxide BUN Creatinine Glucose 102 H POC Glucose Calcium Phosphorus AST 48 H ALT 64 H Ammonia 14.0 L Albumin 2.7 L 02/20/22 02/20/22 02/23/22 04:59 04:59 06:29 WBC 11.4 H RBC Hgb Hct MCV 103 H MCH 33 H MCHC RDW 16.5 H Lymph % (Auto) 5.5 L [place] % (Auto) 12.1 H Lymph # (Auto) 0.6 L [place] # (Auto) 1.4 H Seg Neutrophils % 81.4 H Seg Neuts % (Manual) Lymphocytes % (Manual) Seg Neutrophils # 9.2 H Seg Neutrophils # Man Lymphocytes # (Manual) PT INR ABG pH ABG pO2 ABG HCO3 ABG O2 Saturation ABG Base Excess ABG Hemoglobin Oxyhemoglobin Sodium Potassium Chloride Carbon Dioxide BUN Creatinine Glucose POC Glucose 113 H Calcium 8.2 L Phosphorus AST ALT Ammonia Albumin 02/23/22 02/23/22 02/24/22 11:22 16:10 00:02 WBC RBC Hgb Hct MCV MCH MCHC RDW Lymph % (Auto) [place] % (Auto) Lymph # (Auto) [place] # (Auto) Seg Neutrophils % Seg Neuts % (Manual) Lymphocytes % (Manual) Seg Neutrophils # Seg Neutrophils # Man Lymphocytes # (Manual) PT INR ABG pH ABG pO2 ABG HCO3 ABG O2 Saturation ABG Base Excess ABG Hemoglobin Oxyhemoglobin Sodium Potassium Chloride Carbon Dioxide BUN Creatinine Glucose POC Glucose 108 H 115 H 109 H Calcium Phosphorus AST ALT Ammonia Albumin 02/24/22 02/24/22 02/24/22 11:05 11:05 13:20 WBC RBC 3.55 L Hgb Hct MCV 100 H MCH 34 H MCHC RDW 15.6 H Lymph % (Auto) [place] % (Auto) Lymph # (Auto) [place] # (Auto) Seg Neutrophils % Seg Neuts % (Manual) Lymphocytes % (Manual) Seg Neutrophils # Seg Neutrophils # Man Lymphocytes # (Manual) PT INR ABG pH ABG pO2 ABG HCO3 ABG O2 Saturation ABG Base Excess ABG Hemoglobin Oxyhemoglobin Sodium 146 H Potassium 3.2 L D Chloride 108.4 H Carbon Dioxide BUN Creatinine 0.5 L Glucose POC Glucose 111 H Calcium 7.9 L Phosphorus 2.20 L AST ALT Ammonia Albumin 02/24/22 02/24/22 02/24/22 16:30 17:03 20:25 WBC RBC Hgb Hct MCV MCH MCHC RDW Lymph % (Auto) [place] % (Auto) Lymph # (Auto) [place] # (Auto) Seg Neutrophils % Seg Neuts % (Manual) Lymphocytes % (Manual) Seg Neutrophils # Seg Neutrophils # Man Lymphocytes # (Manual) PT INR ABG pH 7.319 L ABG pO2 65.3 L ABG HCO3 31.3 H ABG O2 Saturation 92.2 L ABG Base Excess 3.8 H ABG Hemoglobin 12.0 L Oxyhemoglobin 90.3 L Sodium Potassium Chloride 107.9 H Carbon Dioxide BUN 8 L Creatinine 0.4 L Glucose POC Glucose 108 H Calcium 7.6 L Phosphorus 4.60 H D AST ALT Ammonia Albumin 02/25/22 02/25/22 02/25/22 04:12 04:12 05:05 WBC RBC 3.07 L Hgb 10.2 L Hct 31.5 L MCV 103 H MCH 33 H MCHC RDW 15.6 H Lymph % (Auto) [place] % (Auto) Lymph # (Auto) [place] # (Auto) Seg Neutrophils % Seg Neuts % (Manual) Lymphocytes % (Manual) Seg Neutrophils # Seg Neutrophils # Man Lymphocytes # (Manual) PT INR ABG pH ABG pO2 ABG HCO3 32.5 H ABG O2 Saturation ABG Base Excess 5.6 H ABG Hemoglobin 10.8 L Oxyhemoglobin 94.8 L Sodium Potassium 3.5 L Chloride 107.7 H Carbon Dioxide BUN Creatinine 0.5 L Glucose POC Glucose Calcium 7.0 L Phosphorus AST ALT Ammonia Albumin 02/25/22 02/25/22 02/26/22 12:05 18:33 00:07 WBC RBC Hgb Hct MCV MCH MCHC RDW Lymph % (Auto) [place] % (Auto) Lymph # (Auto) [place] # (Auto) Seg Neutrophils % Seg Neuts % (Manual) Lymphocytes % (Manual) Seg Neutrophils # Seg Neutrophils # Man Lymphocytes # (Manual) PT INR ABG pH ABG pO2 ABG HCO3 ABG O2 Saturation ABG Base Excess ABG Hemoglobin Oxyhemoglobin Sodium Potassium Chloride Carbon Dioxide BUN Creatinine Glucose POC Glucose 127 H 125 H 114 H Calcium Phosphorus AST ALT Ammonia Albumin 02/26/22 02/26/22 02/26/22 03:30 04:42 11:34 WBC RBC Hgb Hct MCV MCH MCHC RDW Lymph % (Auto) [place] % (Auto) Lymph # (Auto) [place] # (Auto) Seg Neutrophils % Seg Neuts % (Manual) Lymphocytes % (Manual) Seg Neutrophils # Seg Neutrophils # Man Lymphocytes # (Manual) PT INR ABG pH ABG pO2 143.2 H ABG HCO3 33.2 H ABG O2 Saturation ABG Base Excess 6.5 H ABG Hemoglobin 9.4 L Oxyhemoglobin Sodium Potassium Chloride Carbon Dioxide 32 H BUN Creatinine 0.7 L Glucose POC Glucose 114 H Calcium 8.0 L Phosphorus AST ALT Ammonia Albumin 02/26/22 02/26/22 02/27/22 18:17 23:37 04:19 WBC 13.7 H RBC 2.78 L Hgb 9.3 L Hct 28.5 L MCV 103 H MCH 33 H MCHC RDW 16.3 H Lymph % (Auto) [place] % (Auto) Lymph # (Auto) [place] # (Auto) Seg Neutrophils % Seg Neuts % (Manual) Lymphocytes % (Manual) Seg Neutrophils # Seg Neutrophils # Man Lymphocytes # (Manual) PT INR ABG pH ABG pO2 ABG HCO3 ABG O2 Saturation ABG Base Excess ABG Hemoglobin Oxyhemoglobin Sodium Potassium Chloride Carbon Dioxide BUN Creatinine Glucose POC Glucose 111 H 117 H Calcium Phosphorus AST ALT Ammonia Albumin 02/27/22 02/27/22 02/27/22 04:19 04:35 05:27 WBC RBC Hgb Hct MCV MCH MCHC RDW Lymph % (Auto) [place] % (Auto) Lymph # (Auto) [place] # (Auto) Seg Neutrophils % Seg Neuts % (Manual) Lymphocytes % (Manual) Seg Neutrophils # Seg Neutrophils # Man Lymphocytes # (Manual) PT INR ABG pH ABG pO2 96.3 H ABG HCO3 34.9 H ABG O2 Saturation ABG Base Excess 8.1 H ABG Hemoglobin Oxyhemoglobin Sodium Potassium Chloride Carbon Dioxide 31 H BUN Creatinine 0.6 L Glucose 107 H POC Glucose 133 H Calcium 7.8 L Phosphorus AST ALT Ammonia Albumin 02/27/22 02/27/22 02/28/22 11:15 23:35 03:38 WBC 13.3 H RBC 3.05 L Hgb 10.2 L Hct 30.7 L MCV 101 H MCH 33 H MCHC RDW 16.1 H Lymph % (Auto) [place] % (Auto) Lymph # (Auto) [place] # (Auto) Seg Neutrophils % Seg Neuts % (Manual) Lymphocytes % (Manual) Seg Neutrophils # Seg Neutrophils # Man Lymphocytes # (Manual) PT INR ABG pH ABG pO2 ABG HCO3 ABG O2 Saturation ABG Base Excess ABG Hemoglobin Oxyhemoglobin Sodium Potassium Chloride Carbon Dioxide BUN Creatinine Glucose POC Glucose 129 H 122 H Calcium Phosphorus AST ALT Ammonia Albumin 02/28/22 02/28/22 02/28/22 04:50 05:30 09:30 WBC RBC Hgb Hct MCV MCH MCHC RDW Lymph % (Auto) [place] % (Auto) Lymph # (Auto) [place] # (Auto) Seg Neutrophils % Seg Neuts % (Manual) Lymphocytes % (Manual) Seg Neutrophils # Seg Neutrophils # Man Lymphocytes # (Manual) PT INR ABG pH 7.451 H 7.488 H ABG pO2 77.0 L ABG HCO3 37.1 H 34.6 H ABG O2 Saturation ABG Base Excess 11.5 H 10.1 H ABG Hemoglobin 10.1 L 10.0 L Oxyhemoglobin Sodium Potassium Chloride Carbon Dioxide BUN Creatinine Glucose POC Glucose 121 H Calcium Phosphorus AST ALT Ammonia Albumin 02/28/22 02/28/22 03/01/22 11:36 23:07 04:27 WBC 12.5 H RBC 2.85 L Hgb 9.5 L Hct 28.6 L MCV 101 H MCH 33 H MCHC RDW 15.7 H Lymph % (Auto) [place] % (Auto) Lymph # (Auto) [place] # (Auto) Seg Neutrophils % Seg Neuts % (Manual) Lymphocytes % (Manual) Seg Neutrophils # Seg Neutrophils # Man Lymphocytes # (Manual) PT INR ABG pH ABG pO2 ABG HCO3 ABG O2 Saturation ABG Base Excess ABG Hemoglobin Oxyhemoglobin Sodium Potassium Chloride Carbon Dioxide BUN Creatinine Glucose POC Glucose 112 H 107 H Calcium Phosphorus AST ALT Ammonia Albumin 03/01/22 03/01/22 03/01/22 04:27 05:05 11:29 WBC RBC Hgb Hct MCV MCH MCHC RDW Lymph % (Auto) [place] % (Auto) Lymph # (Auto) [place] # (Auto) Seg Neutrophils % Seg Neuts % (Manual) Lymphocytes % (Manual) Seg Neutrophils # Seg Neutrophils # Man Lymphocytes # (Manual) PT INR ABG pH ABG pO2 ABG HCO3 ABG O2 Saturation ABG Base Excess ABG Hemoglobin Oxyhemoglobin Sodium 147 H D Potassium Chloride Carbon Dioxide 34 H BUN Creatinine 0.6 L Glucose 128 H POC Glucose 119 H 121 H Calcium 7.9 L Phosphorus AST ALT Ammonia Albumin 03/01/22 03/01/2222 16:15 23:57 05:18 WBC RBC Hgb Hct MCV MCH MCHC RDW Lymph % (Auto) [place] % (Auto) Lymph # (Auto) [place] # (Auto) Seg Neutrophils % Seg Neuts % (Manual) Lymphocytes % (Manual) Seg Neutrophils # Seg Neutrophils # Man Lymphocytes # (Manual) PT INR ABG pH ABG pO2 110.5 H ABG HCO3 33.0 H ABG O2 Saturation ABG Base Excess 7.4 H ABG Hemoglobin 8.6 L Oxyhemoglobin Sodium Potassium Chloride Carbon Dioxide BUN Creatinine Glucose POC Glucose 134 H 140 H Calcium Phosphorus AST ALT Ammonia Albumin 03/02/22 03/02/22 03/02/22 05:53 09:04 09:04 WBC 15.0 H RBC 3.00 L Hgb 9.7 L Hct 30.7 L MCV 102 H MCH MCHC RDW 16.6 H Lymph % (Auto) [place] % (Auto) Lymph # (Auto) [place] # (Auto) Seg Neutrophils % Seg Neuts % (Manual) Lymphocytes % (Manual) Seg Neutrophils # Seg Neutrophils # Man Lymphocytes # (Manual) PT INR ABG pH ABG pO2 ABG HCO3 ABG O2 Saturation ABG Base Excess ABG Hemoglobin Oxyhemoglobin Sodium Potassium Chloride Carbon Dioxide 31 H BUN Creatinine 0.6 L Glucose 157 H POC Glucose 158 H Calcium 7.9 L Phosphorus AST ALT Ammonia Albumin 03/02/22 03/02/22 03/02/22 11:36 16:25 23:17 WBC RBC Hgb Hct MCV MCH MCHC RDW Lymph % (Auto) [place] % (Auto) Lymph # (Auto) [place] # (Auto) Seg Neutrophils % Seg Neuts % (Manual) Lymphocytes % (Manual) Seg Neutrophils # Seg Neutrophils # Man Lymphocytes # (Manual) PT INR ABG pH ABG pO2 ABG HCO3 ABG O2 Saturation ABG Base Excess ABG Hemoglobin Oxyhemoglobin Sodium Potassium Chloride Carbon Dioxide BUN Creatinine Glucose POC Glucose 160 H 132 H 157 H Calcium Phosphorus AST ALT Ammonia Albumin 03/03/22 03/03/22 03/03/22 03:54 03:54 05:27 WBC 19.5 H RBC 2.79 L Hgb 9.0 L Hct 28.6 L MCV 102 H MCH MCHC RDW 16.2 H Lymph % (Auto) [place] % (Auto) Lymph # (Auto) [place] # (Auto) Seg Neutrophils % Seg Neuts % (Manual) 95.0 H Lymphocytes % (Manual) 3.0 L Seg Neutrophils # Seg Neutrophils # Man 18.5 H Lymphocytes # (Manual) 0.6 L PT INR ABG pH ABG pO2 ABG HCO3 ABG O2 Saturation ABG Base Excess ABG Hemoglobin Oxyhemoglobin Sodium Potassium Chloride Carbon Dioxide BUN Creatinine 0.6 L Glucose 130 H POC Glucose 149 H Calcium 8.1 L Phosphorus AST ALT Ammonia Albumin 03/03/22 03/03/22 03/04/22 11:13 17:30 00:02 WBC RBC Hgb Hct MCV MCH MCHC RDW Lymph % (Auto) [place] % (Auto) Lymph # (Auto) [place] # (Auto) Seg Neutrophils % Seg Neuts % (Manual) Lymphocytes % (Manual) Seg Neutrophils # Seg Neutrophils # Man Lymphocytes # (Manual) PT INR ABG pH ABG pO2 ABG HCO3 ABG O2 Saturation ABG Base Excess ABG Hemoglobin Oxyhemoglobin Sodium Potassium Chloride Carbon Dioxide BUN Creatinine Glucose POC Glucose 139 H 138 H 157 H Calcium Phosphorus AST ALT Ammonia Albumin 03/04/22 03/04/22 03/04/22 05:32 05:32 05:48 WBC 16.1 H RBC 2.81 L Hgb 9.3 L Hct 28.8 L MCV 102 H MCH 33 H MCHC RDW 16.7 H Lymph % (Auto) [place] % (Auto) Lymph # (Auto) [place] # (Auto) Seg Neutrophils % Seg Neuts % (Manual) Lymphocytes % (Manual) Seg Neutrophils # Seg Neutrophils # Man Lymphocytes # (Manual) PT INR ABG pH ABG pO2 ABG HCO3 ABG O2 Saturation ABG Base Excess ABG Hemoglobin Oxyhemoglobin Sodium Potassium Chloride Carbon Dioxide BUN Creatinine 0.7 L Glucose 135 H POC Glucose 145 H Calcium 8.3 L Phosphorus AST ALT Ammonia Albumin 03/04/22 03/04/22 03/05/22 11:34 16:29 00:28 WBC RBC Hgb Hct MCV MCH MCHC RDW Lymph % (Auto) [place] % (Auto) Lymph # (Auto) [place] # (Auto) Seg Neutrophils % Seg Neuts % (Manual) Lymphocytes % (Manual) Seg Neutrophils # Seg Neutrophils # Man Lymphocytes # (Manual) PT INR ABG pH ABG pO2 ABG HCO3 ABG O2 Saturation ABG Base Excess ABG Hemoglobin Oxyhemoglobin Sodium Potassium Chloride Carbon Dioxide BUN Creatinine Glucose POC Glucose 148 H 140 H 116 H Calcium Phosphorus AST ALT Ammonia Albumin 03/05/22 03/05/22 03/05/22 06:29 11:30 17:38 WBC RBC Hgb Hct MCV MCH MCHC RDW Lymph % (Auto) [place] % (Auto) Lymph # (Auto) [place] # (Auto) Seg Neutrophils % Seg Neuts % (Manual) Lymphocytes % (Manual) Seg Neutrophils # Seg Neutrophils # Man Lymphocytes # (Manual) PT INR ABG pH ABG pO2 ABG HCO3 ABG O2 Saturation ABG Base Excess ABG Hemoglobin Oxyhemoglobin Sodium Potassium Chloride Carbon Dioxide BUN Creatinine Glucose POC Glucose 114 H 114 H 117 H Calcium Phosphorus AST ALT Ammonia Albumin 03/06/22 03/06/22 03/06/22 04:17 04:17 06:06 WBC 13.4 H RBC 2.85 L Hgb 9.4 L Hct 29.0 L MCV 102 H MCH 33 H MCHC RDW 16.4 H Lymph % (Auto) [place] % (Auto) Lymph # (Auto) [place] # (Auto) Seg Neutrophils % Seg Neuts % (Manual) Lymphocytes % (Manual) Seg Neutrophils # Seg Neutrophils # Man Lymphocytes # (Manual) PT INR ABG pH ABG pO2 ABG HCO3 ABG O2 Saturation ABG Base Excess ABG Hemoglobin Oxyhemoglobin Sodium Potassium 3.5 L Chloride Carbon Dioxide 31 H BUN Creatinine 0.6 L Glucose 101 H POC Glucose 106 H Calcium 7.7 L Phosphorus 2.00 L AST ALT Ammonia Albumin 03/06/22 03/06/22 03/07/22 18:04 23:50 05:14 WBC RBC Hgb Hct MCV MCH MCHC RDW Lymph % (Auto) [place] % (Auto) Lymph # (Auto) [place] # (Auto) Seg Neutrophils % Seg Neuts % (Manual) Lymphocytes % (Manual) Seg Neutrophils # Seg Neutrophils # Man Lymphocytes # (Manual) PT INR ABG pH ABG pO2 ABG HCO3 ABG O2 Saturation ABG Base Excess ABG Hemoglobin Oxyhemoglobin Sodium Potassium Chloride Carbon Dioxide BUN Creatinine Glucose POC Glucose 108 H 115 H 116 H Calcium Phosphorus AST ALT Ammonia Albumin 03/07/22 03/07/22 03/08/22 11:42 18:13 04:34 WBC RBC 2.86 L Hgb 9.2 L Hct 29.3 L MCV 103 H MCH MCHC 31 L RDW 16.9 H Lymph % (Auto) [place] % (Auto) Lymph # (Auto) [place] # (Auto) Seg Neutrophils % Seg Neuts % (Manual) Lymphocytes % (Manual) Seg Neutrophils # Seg Neutrophils # Man Lymphocytes # (Manual) PT INR ABG pH ABG pO2 ABG HCO3 ABG O2 Saturation ABG Base Excess ABG Hemoglobin Oxyhemoglobin Sodium Potassium Chloride Carbon Dioxide BUN Creatinine Glucose POC Glucose 123 H 109 H Calcium Phosphorus AST ALT Ammonia Albumin 03/08/22 03/08/22 03/08/22 04:34 11:29 16:34 WBC RBC Hgb Hct MCV MCH MCHC RDW Lymph % (Auto) [place] % (Auto) Lymph # (Auto) [place] # (Auto) Seg Neutrophils % Seg Neuts % (Manual) Lymphocytes % (Manual) Seg Neutrophils # Seg Neutrophils # Man Lymphocytes # (Manual) PT INR ABG pH ABG pO2 ABG HCO3 ABG O2 Saturation ABG Base Excess ABG Hemoglobin Oxyhemoglobin Sodium Potassium Chloride Carbon Dioxide 33 H BUN Creatinine 0.5 L Glucose 109 H POC Glucose 117 H 109 H Calcium 7.6 L Phosphorus AST ALT Ammonia Albumin 03/08/22 03/09/22 03/10/22 23:56 11:15 03:57 WBC RBC 2.99 L Hgb 9.9 L Hct 30.3 L MCV 102 H MCH 33 H MCHC RDW 16.8 H Lymph % (Auto) 13.3 L [place] % (Auto) 12.5 H Lymph # (Auto) [place] # (Auto) 1.3 H Seg Neutrophils % 72.4 H Seg Neuts % (Manual) Lymphocytes % (Manual) Seg Neutrophils # Seg Neutrophils # Man Lymphocytes # (Manual) PT INR ABG pH ABG pO2 ABG HCO3 ABG O2 Saturation ABG Base Excess ABG Hemoglobin Oxyhemoglobin Sodium Potassium Chloride Carbon Dioxide BUN Creatinine Glucose POC Glucose 106 H 110 H Calcium Phosphorus AST ALT Ammonia Albumin 03/10/22 03/10/22 03/10/22 03:57 04:50 16:04 WBC RBC Hgb Hct MCV MCH MCHC RDW Lymph % (Auto) [place] % (Auto) Lymph # (Auto) [place] # (Auto) Seg Neutrophils % Seg Neuts % (Manual) Lymphocytes % (Manual) Seg Neutrophils # Seg Neutrophils # Man Lymphocytes # (Manual) PT INR ABG pH 7.465 H ABG pO2 ABG HCO3 31.9 H ABG O2 Saturation ABG Base Excess 7.3 H ABG Hemoglobin 11.0 L Oxyhemoglobin Sodium Potassium 3.4 L Chloride Carbon Dioxide BUN Creatinine 0.6 L Glucose POC Glucose 115 H Calcium 8.1 L Phosphorus AST ALT Ammonia Albumin 1.9 L 03/11/22 03/11/22 03/11/22 04:02 04:02 04:02 WBC 12.0 H RBC 2.81 L Hgb 9.2 L Hct 29.1 L MCV 103 H MCH 33 H MCHC RDW 17.5 H Lymph % (Auto) [place] % (Auto) Lymph # (Auto) [place] # (Auto) Seg Neutrophils % Seg Neuts % (Manual) Lymphocytes % (Manual) Seg Neutrophils # Seg Neutrophils # Man Lymphocytes # (Manual) PT 16.2 H INR 1.16 H ABG pH ABG pO2 ABG HCO3 ABG O2 Saturation ABG Base Excess ABG Hemoglobin Oxyhemoglobin Sodium Potassium Chloride Carbon Dioxide BUN Creatinine 0.5 L Glucose 104 H POC Glucose Calcium 7.9 L Phosphorus AST ALT Ammonia Albumin 03/11/22 03/11/22 03/11/22 05:10 11:07 16:32 WBC RBC Hgb Hct MCV MCH MCHC RDW Lymph % (Auto) [place] % (Auto) Lymph # (Auto) [place] # (Auto) Seg Neutrophils % Seg Neuts % (Manual) Lymphocytes % (Manual) Seg Neutrophils # Seg Neutrophils # Man Lymphocytes # (Manual) PT INR ABG pH 7.476 H ABG pO2 ABG HCO3 29.7 H ABG O2 Saturation ABG Base Excess 5.7 H ABG Hemoglobin 9.1 L Oxyhemoglobin Sodium Potassium Chloride Carbon Dioxide BUN Creatinine Glucose POC Glucose 108 H 121 H Calcium Phosphorus AST ALT Ammonia Albumin 03/12/22 03/13/22 03/13/22 05:51 06:08 12:02 WBC RBC 2.73 L Hgb 9.0 L Hct 27.5 L MCV 101 H MCH 33 H MCHC RDW 17.2 H Lymph % (Auto) [place] % (Auto) Lymph # (Auto) [place] # (Auto) Seg Neutrophils % Seg Neuts % (Manual) Lymphocytes % (Manual) Seg Neutrophils # Seg Neutrophils # Man Lymphocytes # (Manual) PT INR ABG pH ABG pO2 ABG HCO3 ABG O2 Saturation ABG Base Excess ABG Hemoglobin Oxyhemoglobin Sodium Potassium Chloride Carbon Dioxide BUN Creatinine Glucose POC Glucose 116 H 111 H Calcium Phosphorus AST ALT Ammonia Albumin 03/13/22 03/13/22 03/14/22 12:48 18:17 03:58 WBC RBC 2.97 L Hgb 9.7 L Hct 30.0 L MCV 101 H MCH 33 H MCHC RDW 16.7 H Lymph % (Auto) [place] % (Auto) Lymph # (Auto) [place] # (Auto) Seg Neutrophils % Seg Neuts % (Manual) Lymphocytes % (Manual) Seg Neutrophils # Seg Neutrophils # Man Lymphocytes # (Manual) PT INR ABG pH ABG pO2 ABG HCO3 ABG O2 Saturation ABG Base Excess ABG Hemoglobin Oxyhemoglobin Sodium Potassium Chloride Carbon Dioxide BUN Creatinine Glucose POC Glucose 125 H 114 H Calcium Phosphorus AST ALT Ammonia Albumin 03/14/22 03/14/22 03/14/22 03:58 13:01 16:41 WBC RBC Hgb Hct MCV MCH MCHC RDW Lymph % (Auto) [place] % (Auto) Lymph # (Auto) [place] # (Auto) Seg Neutrophils % Seg Neuts % (Manual) Lymphocytes % (Manual) Seg Neutrophils # Seg Neutrophils # Man Lymphocytes # (Manual) PT INR ABG pH ABG pO2 ABG HCO3 ABG O2 Saturation ABG Base Excess ABG Hemoglobin Oxyhemoglobin Sodium Potassium Chloride Carbon Dioxide BUN Creatinine 0.6 L Glucose POC Glucose 118 H 109 H Calcium 8.2 L Phosphorus AST ALT Ammonia Albumin 03/16/22 03/16/22 03/17/22 05:28 05:28 23:19 WBC RBC 2.81 L Hgb 9.1 L Hct 27.8 L MCV 99 H MCH MCHC RDW 17.0 H Lymph % (Auto) [place] % (Auto) Lymph # (Auto) [place] # (Auto) Seg Neutrophils % Seg Neuts % (Manual) Lymphocytes % (Manual) Seg Neutrophils # Seg Neutrophils # Man Lymphocytes # (Manual) PT INR ABG pH ABG pO2 ABG HCO3 ABG O2 Saturation ABG Base Excess ABG Hemoglobin Oxyhemoglobin Sodium Potassium Chloride Carbon Dioxide BUN Creatinine 0.5 L Glucose POC Glucose 113 H Calcium 8.2 L Phosphorus AST ALT Ammonia Albumin 03/20/22 03/20/22 03/20/22 04:09 04:09 17:22 WBC RBC 2.90 L Hgb 9.6 L Hct 28.9 L MCV 100 H MCH 33 H MCHC RDW 17.4 H Lymph % (Auto) [place] % (Auto) Lymph # (Auto) [place] # (Auto) Seg Neutrophils % Seg Neuts % (Manual) Lymphocytes % (Manual) Seg Neutrophils # Seg Neutrophils # Man Lymphocytes # (Manual) PT INR ABG pH ABG pO2 ABG HCO3 ABG O2 Saturation ABG Base Excess ABG Hemoglobin Oxyhemoglobin Sodium Potassium Chloride Carbon Dioxide BUN Creatinine 0.6 L Glucose POC Glucose 110 H Calcium 8.2 L Phosphorus AST ALT Ammonia Albumin 03/21/22 03/21/22 03/22/22 18:24 23:09 12:18 WBC RBC Hgb Hct MCV MCH MCHC RDW Lymph % (Auto) [place] % (Auto) Lymph # (Auto) [place] # (Auto) Seg Neutrophils % Seg Neuts % (Manual) Lymphocytes % (Manual) Seg Neutrophils # Seg Neutrophils # Man Lymphocytes # (Manual) PT INR ABG pH ABG pO2 ABG HCO3 ABG O2 Saturation ABG Base Excess ABG Hemoglobin Oxyhemoglobin Sodium Potassium Chloride Carbon Dioxide BUN Creatinine Glucose POC Glucose 110 H 107 H 106 H Calcium Phosphorus AST ALT Ammonia Albumin 03/22/22 03/23/22 14:25 00:21 WBC RBC Hgb Hct MCV MCH MCHC RDW Lymph % (Auto) [place] % (Auto) Lymph # (Auto) [place] # (Auto) Seg Neutrophils % Seg Neuts % (Manual) Lymphocytes % (Manual) Seg Neutrophils # Seg Neutrophils # Man Lymphocytes # (Manual) PT INR ABG pH ABG pO2 150.5 H ABG HCO3 32.4 H ABG O2 Saturation ABG Base Excess 6.2 H ABG Hemoglobin 11.4 L Oxyhemoglobin Sodium Potassium Chloride Carbon Dioxide BUN Creatinine Glucose POC Glucose 107 H Calcium Phosphorus AST ALT Ammonia Albumin
[2022-03-23] MEDS: PRAVASTATIN 40 MG TAB FEEDTUBE SCH (21:08)
--- NOTE | 2022-03-24 02:31 | XRay Report ---
CHEST 1 VIEW 03/24/2022 1:36 AM INDICATION / CLINICAL INFORMATION: follow up respiratory Failure. COMPARISON: One view of the chest from 03/10/2022. FINDINGS: SUPPORT DEVICES: An ET tube terminates 3 cm above the colt. There is expected positioning of an eso phagogastric tube with the tip located over the gastric body. HEART / MEDIASTINUM: No significant abnormality. LUNGS / PLEURA: Bilateral pulmonary opacities have nearly completely resolved. No significant pleural effusion. No pneumothorax. ADDITIONAL FINDINGS: No significant additional findings. IMPRESSION: Improved aeration of the lungs with nearly complete resolution of previously seen bibasilar opacities . Signer Name: Jesu Gimenez MD Signed: 03/24/2022 2:27 AM Workstation Name: [id number]
[2022-03-24] MEDS: ALBUTEROL 2.5 MG/3 ML NEBU IH SCH ×4 (03:58→19:19)
[2022-03-24 04:22] LABS: Hematocrit 31.1 % (35.5-45.6); Hemoglobin 10.1 gm/dl (11.8-15.2); Mean Corpuscular HGB Conc 33 % (32-34); Mean Corpuscular Volume 98 fl (84-94); Platelet Count 356 K/mm3 (140-440); Red Blood Count 3.18 M/mm3 (3.65-5.03); Red Cell Distribution Width 17.4 % (13.2-15.2)
[2022-03-24 04:35] LABS: BUN/Creatinine Ratio 40; Blood Urea Nitrogen 20 mg/dL (9-20); Calcium 8.5 mg/dL (8.4-10.2); Hemolysis Index 7
[2022-03-24] MEDS: LEVOTHYROXINE 25 MCG TAB FEEDTUBE SCH (05:33)
[2022-03-24] MEDS: HEPARIN 5,000 UNIT/1 ML VIAL SUB-Q SCH ×3 (05:33→21:05)
[2022-03-24] MEDS: SENNOSIDES/DOCUSATE SODIUM 8.6/50 MG TAB FEEDTUBE SCH ×2 (09:43→21:05)
[2022-03-24] MEDS: MIDODRINE 2.5 MG TAB FEEDTUBE SCH ×3 (09:43→17:14)
[2022-03-24] MEDS: FAMOTIDINE 20 MG TAB FEEDTUBE SCH ×2 (09:43→21:05)
[2022-03-24] MEDS: levETIRAcetam 500 MG/5 ML ORAL LIQD FEEDTUBE SCH ×2 (10:48→21:05)
--- NOTE | 2022-03-24 10:57 | Progress Note ---
<KEATON GOLD - Last Filed: 03/24/22 17:55> Assessment and Plan Assessment and plan: This is a 51-year-old male with HTN, seizure disorder, Down syndrome, HLD, partial blindness admitted with aspiration pneumonia, probable bronchogenic carcinoma, acute hypoxic respiratory failure and acute encephalopathy Hospital course to date: 02/19/2022. Consult pulmonary for further evaluation and possible bronchoscopy. I suspect patient has component of aspiration pneumonia as well. We will obtain a speech therapy evaluation for swallowing and start empiric antibiotics. Continue O2 supplementation to maintain sats greater than 92%. 02/20/2022. Pulmonary feels that the abnormality seen on CT scan is highly unlikely for a mass given negative chest x-ray 1 month ago and no risk factors. Etiology is likely secondary to aspiration from possibly a foreign body most likely food with atelectasis of the right lower lobe. Bronchoscopy is needed in the case to evaluate to see if lung mass is there vs foreign body, but at this time not able to do because no identifiable person that is able to give consent. Continue aspiration precautions and continue speech therapy evaluation for swallowing. Keep n.p.o. for now 02/21/2022. Patient remains NPO. Consider DHT placement. Follow-up with speech therapy evaluation. Pulmonology to consider bronchoscopy if able to obtain consent. Continue IV antibiotics for aspiration pneumonia 02/22/2022. Patient remains NPO. Consider DHT placement. Follow-up with speech therapy evaluation. Pulmonology to consider bronchoscopy if able to obtain consent. Continue IV antibiotics for aspiration pneumonia 02/23/2022. DHT placed yesterday. TF initiated for nutritional support. Patient currently with strict NPO. Aspiration precautions. Pulmonology to consider bronchoscopy if able to obtain consent. Continue IV antibiotics for aspiration pneumonia 02/24: Patient was transferred to the ICU for further monitoring. This morning patient remained on high flow nasal cannula on 40 L/100% and despite repeated nasotracheal suctioning patient SPO2 remained in the 80s. Patient was placed on nonrebreather and SPO2 increased to upper 80s. Patient was subsequently intubated by anesthesia. Started on sedation. 02/25: Patient remains sedated on fentanyl, potassium and magnesium repleted. IV fluids and amlodipine discontinued. Possible bronchoscopy tomorrow. 02/26: Patient had a bronchoscopy today which showed mucus and no endobronchial lesions or masses. FiO2 was increased to 100 during and postprocedure weaning as tolerated. Repeat CXR is much improved after bronc. Given 1 L LR bolus due to hypotension. No acute events reported overnight. 02/27: Decreased PEEP, will repeat CT of chest. no acute changes overnight. 02/28: Patient was extubated today however had to be be intubated shortly after. Patient ETT looked mispositioned on x-ray and Dr. Alonzo did do a bedside bronc. Patient was briefly hypotensive and on Levophed postintubation however Levophed was quickly titrated off and patient did not require central line. No acute events reported overnight. Will obtain CT neck d/t difficulty intubating. Ethi committee consulted. 03/04: Overnight patient was hypotensive and started on IVF. Patient started on steroids as no air leak noted and hypotension and given 2 L LR 03/05: Overnight patient received bolus per RN report, no orders seen. Continue supportive care 03/03: SB on the monitor, HR as low as 37, VSS. Will continue to monitor for now. Awaiting on desicion from [facility] for possible trach and PEG. Continue daily air leak per [facility] 03/04: MAIDA overnight. Remains stable on the vent. Awaiting on desicion from [facility] for possible trach and PEG. Continue current supportive measures 03/05: MAIDA overnight. Awaiting on desicion from [facility] for possible trach and PEG. Midodrine held yesterday, HR improved. Continue current supportive measures. Daily PSV trial as tolerated per [facility] 03/06: Remains stable on the vent. Continue current supportive measures, daily PSV trial per [facility]. Awaiting on desicion for possible trach and PEG. 03/07: MAIDA overnight, remains stable. Continue daily PSV trial as tolerated. Awaiting on desicion for possible trach and PEG. 03/08: Patient failed PSV trial this am due to tachycardia and increase RR. Continue supportive measures and daily PSV trial as tolerated. Possible discussion with [facility] and [facility] on Thursday in regards to medical necessity, may need to consider two physician consent if no one is able to claim responsibility for this patient. 03/09: MAIDA overnight. Continue current supportive measures and daily PSV trail as tolerated. Awaiting on desicion for possible trach and PEG, discussion with Ethics possibly tomorrow per [facility]. 03/10: no acute events overnight, PSV today. replete potassium. 03/11: No acute events reported overnight, patient failed PSV yesterday and will repeat today. Hospital to start guardianship process. 03/12: No acute events overnight. PSV today 03/13: Patient given 500ml normal saline and started on midodrine for h ypotension. No acute events reported overnight. Failed pressure support again this morning. 03/14: No acute events reported overnight, patient blood pressure seems better therefore midodrine discontinued. RT placed on CPAP need lasted for couple hours. Will remove summers 03/15: Midodrine was restarted yesterday evening for hypotension, Summers catheter not removed due to sacral ulcer and history of retention. Unable to crush Flomax and patient will not tolerate doxazosin given hypotension. Given LR bolus this morning. If blood pressure continues to be borderline after bolus, we will adjust management as needed. CPAP as tolerated 03/16: No acute events reported overnight, patient placed on CPAP trial this morning which he failed. 03/17: RT attempted PSV which he failed again today. No acute events reported overnight. 03/18: Awaiting ethic committee's decision on Trach/PEG. Patient tolerated PSV trial for over 3 hrs today, continue daily PSV trial as tolerated. 03/19: MAIDA overnight. Continue current supportive measures. Daily PSV trial as tolerated. Awaiting on desicion for possible trach and PEG. 03/20: MAIDA overnight. Daily PSV trial as tolerated. Awaiting decision on guardian ship for trach and PEG. 03/21: Remains stable, condition unchanged. Continue supportive measures and daily PSV trial as tolerated. 03/22: MAIDA overnight. Continue current supportive measures. Daily PSV trial as tolerated 03/23: MAIDA overnight, continue supportive measures and daily PSV trial as tolerated. 03/24: Condition unchanged. Still waiting on Ethics' decision for possible trach/Peg. Continue supportive measures and daily PSV trial as tolerated. Neuro: Acute encephalopathy, h/o seizure disorder, Down syndrome, partial blindness -Intubated and off sedation -Reorientation as needed -Maintain sleep-wake cycle -aspiration/seizure precautions -As needed analgesia -CT head showed no acute abnormality -Continue Keppra Cardiac: Hypotension, h/o HTN, HLD -Cardiology consulted, appreciate recommendations -Blood pressure monitoring per protocol -d/c amlodipine -On PO Midodrine for hypotension Respiratory: Acute hypoxic respiratory failure, r/o bronchogenic carcinoma -CCM consulted, appreciate recommendations -Intubated on 02/24 with a 8.0 at 23 at the lips but extubated 02/28 -reintubated 02/28 with 8.0 OETT -Vent settings: AC rate 14, TV 360, PEEP 6, FO2 25% -See RT notes for titration -VAP bundle -SPO2 monitoring -02/18 CTA chest showed no evidence of pulmonary embolism, suspected bronchogenic carcinoma with associated obstruction of the right lower lobe proximal bronchus segment, 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 adenopathy and suspected to left lower lobe metastatic nodule -02/26 Bronch->mucous, no lesion noted -02/27 CT chest showed right mainstem bronchus patent with small amount of interval bronchial fluid which may be mucus (this may account for the appearance of the prior CTA chest fluid-filled airway rather than entering bronchial lesion), previously seen complete left lower lobe since related to bronchial occlusion has significantly improved, there is persistent compressive atelectasis in the right lower lung secondary to the pleural effusion, bilateral pleural effusions, right lung pneumonia -CT neck showed no acute changes - IV Steroids stopped GI: Moderate protein calorie malnutrition -PPI -NTR consulted for tube feedings -BR: Senokot S : Hypernatremia (resolved) -FWF 200 ml q4 hr -Monitor intake and output -Renally dose medications -Avoid nephrotoxic medications -Trend BMP ID: Aspiration PNA Sacral Decubitus Ulcer Type 2(POA) -S/p Rocephin for 5 days (02/19-02/24) -Monitor WBC and temperature curve -Wound care consulted Endo: NAD -Avoid hypoglycemia -Accu-Cheks every 6 -Avoid hypoglycemia Heme: NAD -Trend CBC -Transfuse hemoglobin less than 7 -SCDs to BLE while in bed The high probability of a clinically significant, sudden or life threatening deterioration of the [resp] system(s) required my full and direct attention, intervention and personal management. The aggregate critical care time was [60] minutes. This time is in addition to time spent performing reported procedures but includes the following: [x] Data Review and interpretation [x] Patient assessment and monitoring of vital signs [x] Documentation [x] Medication orders and management Disposition Plan: ICU Total Time Spent with Patient (Minutes): 60 History Interval history: Patient seen and examined at the bedside. Remains stable on low vent setting, not on any sedation. Open eyes spontaneously and move extremities but does not follow any commands. SR on the monitor this am, VSS. BEY overnight Hospitalist Physical - Physical exam Narrative exam: General appearance: Present: no acute distress, well-nourished, obese - EENT Eyes: Present: PERRL - Neck Neck: Present: normal ROM - Respiratory Respiratory effort: normal Respiratory: bilateral: rhonchi - Cardiovascular Rhythm: regular Heart Sounds: Present: S1 & S2 - Extremities Extremities: no ischemia, pulses intact, pulses symmetrical Extremity abnormal: edema - Peripheral Assessment Generalized Edema Type: Non-pitting Edema Degree: 1+ Capillary Refill: < 3 seconds Skin Temperature: Warm Peripheral Pulses: within normal limits - Abdominal General gastrointestinal: soft, non-distended, normal bowel sounds - Integumentary Integumentary: Present: warm, dry - Psychiatric Psychiatric: other (Intubated, unresponsive. Not on any sedations) - Neurologic Neurologic: moves all extremities, other (Intubated, unresponsive. Not on any sedations) - Allied Health Allied health notes reviewed: nursing, case management - Constitutional Vitals: Temp Pulse Resp BP Pulse Ox 98.5 F 74 17 115/70 94 03/24/22 07:02 03/24/22 10:00 03/24/22 10:00 03/24/22 10:00 03/24/22 10:00 HEART Score - HEART Score Troponin: Troponin T < 0.010 ng/mL (0.00-0.029) 02/18/22 21:02 Results - Labs CBC & Chem 7: 03/24/22 03:47 03/24/22 03:47 Labs: Laboratory Last Values WBC 6.6 K/mm3 (4.5-11.0) 03/24/22 03:47 RBC 3.18 M/mm3 (3.65-5.03) L 03/24/22 03:47 Hgb 10.1 gm/dl (11.8-15.2) L 03/24/22 03:47 Hct 31.1 % (35.5-45.6) L 03/24/22 03:47 MCV 98 fl (84-94) H 03/24/22 03:47 MCH 32 pg (28-32) 03/24/22 03:47 MCHC 33 % (32-34) 03/24/22 03:47 RDW 17.4 % (13.2-15.2) H 03/24/22 03:47 Plt Count 356 K/mm3 (140-440) 03/24/22 03:47 Lymph % (Auto) 13.3 % (13.4-35.0) L 03/10/22 03:57 [place] % (Auto) 12.5 % (0.0-7.3) H 03/10/22 03:57 Eos % (Auto) 1.4 % (0.0-4.3) 03/10/22 03:57 Baso % (Auto) 0.4 % (0.0-1.8) 03/10/22 03:57 Lymph # (Auto) 1.3 K/mm3 (1.2-5.4) 03/10/22 03:57 [place] # (Auto) 1.3 K/mm3 (0.0-0.8) H 03/10/22 03:57 Eos # (Auto) 0.1 K/mm3 (0.0-0.4) 03/10/22 03:57 Baso # (Auto) 0.0 K/mm3 (0.0-0.1) 03/10/22 03:57 Add Manual Diff Complete 03/03/22 03:54 Total Counted 100 03/03/22 03:54 Seg Neutrophils % 72.4 % (40.0-70.0) H 03/10/22 03:57 Seg Neuts % (Manual) 95.0 % (40.0-70.0) H 03/03/22 03:54 Band Neutrophils % 0 % 03/03/22 03:54 Lymphocytes % (Manual) 3.0 % (13.4-35.0) L 03/03/22 03:54 Reactive Lymphs % (Man) 0 % 03/03/22 03:54 Monocytes % (Manual) 2.0 % (0.0-7.3) 03/03/22 03:54 Eosinophils % (Manual) 0 % (0.0-4.3) 03/03/22 03:54 Basophils % (Manual) 0 % (0.0-1.8) 03/03/22 03:54 Metamyelocytes % 0 % 03/03/22 03:54 Myelocytes % 0 % 03/03/22 03:54 Promyelocytes % 0 % 03/03/22 03:54 Blast Cells % 0 % 03/03/22 03:54 Nucleated RBC % Not Reportable 03/03/22 03:54 Seg Neutrophils # 7.4 K/mm3 (1.8-7.7) 03/10/22 03:57 Seg Neutrophils # Man 18.5 K/mm3 (1.8-7.7) H 03/03/22 03:54 Band Neutrophils # 0.0 K/mm3 03/03/22 03:54 Lymphocytes # (Manual) 0.6 K/mm3 (1.2-5.4) L 03/03/22 03:54 Abs React Lymphs (Man) 0.0 K/mm3 03/03/22 03:54 Monocytes # (Manual) 0.4 K/mm3 (0.0-0.8) 03/03/22 03:54 Eosinophils # (Manual) 0.0 K/mm3 (0.0-0.4) 03/03/22 03:54 Basophils # (Manual) 0.0 K/mm3 (0.0-0.1) 03/03/22 03:54 Metamyelocytes # 0.0 K/mm3 03/03/22 03:54 Myelocytes # 0.0 K/mm3 03/03/22 03:54 Promyelocytes # 0.0 K/mm3 03/03/22 03:54 Blast Cells # 0.0 K/mm3 03/03/22 03:54 WBC Morphology Not Reportable 03/03/22 03:54 Hypersegmented Neuts Not Reportable 03/03/22 03:54 Hyposegmented Neuts Not Reportable 03/03/22 03:54 Hypogranular Neuts Not Reportable 03/03/22 03:54 Smudge Cells Not Reportable 03/03/22 03:54 Toxic Granulation Not Reportable 03/03/22 03:54 Toxic Vacuolation Not Reportable 03/03/22 03:54 Dohle Bodies Not Reportable 03/03/22 03:54 Pelger-Huet Anomaly Not Reportable 03/03/22 03:54 Lakshmi Rods Not Reportable 03/03/22 03:54 Platelet Estimate Consistent w auto 03/03/22 03:54 Clumped Platelets Not Reportable 03/03/22 03:54 Plt Clumps, EDTA Not Reportable 03/03/22 03:54 Large Platelets Not Reportable 03/03/22 03:54 Giant Platelets Not Reportable 03/03/22 03:54 Platelet Satelliting Not Reportable 03/03/22 03:54 Plt Morphology Comment Not Reportable 03/03/22 03:54 RBC Morphology Not Reportable 03/03/22 03:54 Dimorphic RBCs Not Reportable 03/03/22 03:54 Polychromasia Not Reportable 03/03/22 03:54 Hypochromasia Not Reportable 03/03/22 03:54 Poikilocytosis Not Reportable 03/03/22 03:54 Anisocytosis 1+ 03/03/22 03:54 Microcytosis Not Reportable 03/03/22 03:54 Macrocytosis Not Reportable 03/03/22 03:54 Spherocytes Not Reportable 03/03/22 03:54 Pappenheimer Bodies Not Reportable 03/03/22 03:54 Sickle Cells Not Reportable 03/03/22 03:54 Target Cells Not Reportable 03/03/22 03:54 Tear Drop Cells Not Reportable 03/03/22 03:54 Ovalocytes Not Reportable 03/03/22 03:54 Helmet Cells Not Reportable 03/03/22 03:54 [place] Bodies Not Reportable 03/03/22 03:54 [place] Rings Not Reportable 03/03/22 03:54 [place] Cells Not Reportable 03/03/22 03:54 Bite Cells Not Reportable 03/03/22 03:54 Crenated Cell Not Reportable 03/03/22 03:54 Elliptocytes Not Reportable 03/03/22 03:54 Acanthocytes (Spur) Not Reportable 03/03/22 03:54 Rouleaux Not Reportable 03/03/22 03:54 Hemoglobin C Crystals Not Reportable 03/03/22 03:54 Schistocytes Not Reportable 03/03/22 03:54 Malaria parasites Not Reportable 03/03/22 03:54 Cash Bodies Not Reportable 03/03/22 03:54 Hem Pathologist Commnt No 03/03/22 03:54 PT 16.2 Sec. (12.2-14.9) H 03/11/22 04:02 INR 1.16 (0.87-1.13) H 03/11/22 04:02 ABG pH 7.392 pH Units (7.350-7.450) 03/22/22 14:25 ABG pCO2 54.4 mm Hg 03/22/22 14:25 ABG pO2 150.5 mm Hg (80.0-90.0) H 03/22/22 14:25 ABG HCO3 32.4 mmol/L (20.0-26.0) H 03/22/22 14:25 ABG O2 Saturation 98.8 % (95.0-99.0) 03/22/22 14:25 ABG O2 Content 15.8 (0.0-44) 03/22/22 14:25 ABG Base Excess 6.2 mmol/L (-2.0-3.0) H 03/22/22 14:25 ABG Hemoglobin 11.4 gm/dl (14.0-18.0) L 03/22/22 14:25 ABG Carboxyhemoglobin 1.6 % (0.0-5.0) 03/22/22 14:25 ABG Methemoglobin 0.6 % (0.0-1.5) 03/22/22 14:25 Oxyhemoglobin 96.6 % (95.0-99.0) 03/22/22 14:25 FiO2 30 % 03/22/22 14:25 Sodium 139 mmol/L (137-145) 03/24/22 03:47 Potassium 4.3 mmol/L (3.6-5.0) 03/24/22 03:47 Chloride 101.7 mmol/L (98-107) 03/24/22 03:47 Carbon Dioxide 30 mmol/L (22-30) 03/24/22 03:47 Anion Gap 12 mmol/L 03/24/22 03:47 BUN 20 mg/dL (9-20) 03/24/22 03:47 Creatinine 0.5 mg/dL (0.8-1.3) L 03/24/22 03:47 Estimated GFR > 60 ml/min 03/24/22 03:47 BUN/Creatinine Ratio 40 % 03/24/22 03:47 Glucose 99 mg/dL (75-100) 03/24/22 03:47 POC Glucose 90 mg/dL (70-105) 03/23/22 17:09 Lactic Acid 1.20 mmol/L (0.7-2.0) 02/18/22 21:02 Calcium 8.5 mg/dL (8.4-10.2) 03/24/22 03:47 Phosphorus 3.50 mg/dL (2.5-4.5) 03/20/22 04:09 Magnesium 2.00 mg/dL (1.7-2.3) 03/20/22 04:09 Total Bilirubin 0.30 mg/dL (0.1-1.2) 03/10/22 03:57 AST 17 units/L (5-40) 03/10/22 03:57 ALT 18 units/L (7-56) 03/10/22 03:57 Alkaline Phosphatase 89 units/L (35-129) 03/10/22 03:57 Ammonia 14.0 umol/L (25-60) L 02/18/22 23:22 Troponin T < 0.010 ng/mL (0.00-0.029) 02/18/22 21:02 Total Protein 6.6 g/dL (6.3-8.2) 03/10/22 03:57 Albumin 1.9 g/dL (3.9-5) L 03/10/22 03:57 Albumin/Globulin Ratio 0.4 % 03/10/22 03:57 Urine Color Dark yellow (Yellow) 02/18/22 Unknown Urine Turbidity Clear (Clear) 02/18/22 Unknown Urine pH 7.0 (5.0-7.0) 02/18/22 Unknown Ur Specific [place] 1.015 (1.003-1.030) 02/18/22 Unknown Urine Protein <15 mg/dl mg/dL (Negative) 02/18/22 Unknown Urine Glucose (UA) Negative mg/dL (Negative) 02/18/22 Unknown Urine Ketones Negative mg/dL (Negative) 02/18/22 Unknown Urine Blood Trace (Negative) 02/18/22 Unknown Urine Nitrite Negative (Negative) 02/18/22 Unknown Urine Bilirubin Negative (Negative) 02/18/22 Unknown Urine Urobilinogen < 2.0 mg/dL (<2.0) 02/18/22 Unknown Ur Leukocyte Esterase Negative (Negative) 02/18/22 Unknown Urine WBC (Auto) 2.0 /HPF (0.0-6.0) 02/18/22 Unknown Urine RBC (Auto) 9.0 /HPF (0.0-6.0) 02/18/22 Unknown Urine Mucus Few /HPF 02/18/22 Unknown Urine Opiates Screen Negative 02/18/22 Unknown Urine Methadone Screen Negative 02/18/22 Unknown Ur Barbiturates Screen Negative 02/18/22 Unknown Ur Phencyclidine Scrn Negative 02/18/22 Unknown Ur Amphetamines Screen Negative 02/18/22 Unknown U Benzodiazepines Scrn Negative 02/18/22 Unknown Urine Cocaine Screen Negative 02/18/22 Unknown U Marijuana (THC) Screen Negative 02/18/22 Unknown Drugs of Abuse Note Disclamer 02/18/22 Unknown Plasma/Serum Alcohol < 0.01 % (0-0.07) 02/18/22 21:02 Summers/IV: Voiding Method Indwelling Catheter Active Medications - Current Medications Current Medications: Generic Name Dose Route Start Last Admin Trade Name Freq PRN Reason Stop Dose Admin Acetaminophen 650 mg 03/03/22 09:00 Acetaminophen 325 Mg/10.15 Ml Oral Liqd Unit Dose FEEDTUBE Q4H PRN Pain, Mild (1-3); TEMP > 100.4 Albuterol 2.5 mg 03/12/22 20:00 03/24/22 07:16 Albuterol 2.5 Mg/3 Ml Nebu IH 2.5 mg Q6HRT LAZARUS Administration Famotidine 20 mg 02/25/22 10:00 03/24/22 09:43 Famotidine 20 Mg Tab FEEDTUBE 20 mg BID LAZARUS Administration Heparin Sodium (Porcine) 5,000 unit 02/19/22 06:00 03/24/22 05:33 Heparin 5,000 Unit/1 Ml Vial SUB-Q 5,000 unit Q8HR LAZARUS Administration Hydrophilic Ointment 1 applic 02/24/22 15:05 Lip Therapy Vaseline TP Q2HR PRN Dry Lips Levetiracetam 500 mg 02/25/22 22:00 03/24/22 10:48 Levetiracetam 500 Mg/5 Ml Oral Liqd FEEDTUBE 500 mg BID LAZARUS Administration Levothyroxine Sodium 25 mcg 02/26/22 06:00 03/24/22 05:33 Levothyroxine 25 Mcg Tab FEEDTUBE 25 mcg QAM@0600 LAZARUS Administration Magnesium Hydroxide 30 ml 02/19/22 02:02 Magnesium Hydroxide (Mom) Oral Liqd Udc PO Q4H PRN Constipation Midodrine 2.5 mg 03/19/22 12:00 03/24/22 09:43 Midodrine 2.5 Mg Tab FEEDTUBE 2.5 mg TID@0800,1200,1600 LAZARUS Administration Multi-Ingred Cream/Lotion/Oil/Oint 1 applic 02/24/22 15:05 Mineral Oil/Petrolatum, White Ophth Oint 3.5 Gm OU Q4HR PRN Dry Eye(s) Ondansetron HCl 4 mg 02/19/22 02:02 Ondansetron 4 Mg/2 Ml Inj IV Q8H PRN Nausea And Vomiting Pravastatin Sodium 40 mg 02/25/22 22:00 03/23/22 21:08 Pravastatin 40 Mg Tab FEEDTUBE 40 mg QHS LAZARUS Administration Senna/Docusate Sodium 1 tab 02/24/22 22:00 03/24/22 09:43 Sennosides/Docusate Sodium 8.6/50 Mg Tab FEEDTUBE 1 tab BID LAZARUS Administration Sodium Chloride 10 ml 02/19/22 10:00 03/24/22 09:45 Sodium Chloride 0.9% 10 Ml Flush Syringe IV 10 ml BID LAZARUS Administration Sodium Chloride 10 ml 02/19/22 02:02 03/03/22 14:21 Sodium Chloride 0.9% 10 Ml Flush Syringe IV 10 ml PRN PRN Administration LINE FLUSH Nutrition/Malnutrition Assess - Dietary Evaluation Nutrition/Malnutrition Findings: Nutrition Notes Start: 02/19/22 14:29 Freq: Status: Active Protocol: Document 03/21/22 15:43 [facility] (Rec: 03/21/22 15:45 IVAN [id number]) Nutrition Notes Initial or Follow up Reassessment Current Diagnosis Hypertension,Respiratory Failure,Hyperlipidemia Other Pertinent Diagnosis Asp pneu, acute encephalopathy , seizure d/o, partial blindness Current Diet TF - Vital AF 1.2 at 50ml/hr Labs/Tests Reviewed Pertinent Medications Reviewed Height 5 ft 3 in Weight 63.2 kg [place] Body Weight (kg) 56.36 BMI 24.7 Weight Status Appropriate Subjective/Other Information Pt remains on vent support; still awaiting decision on guardianship for trach/PEG placement. Pt continues to tolerate TF at goal rate. Last BM was 03/18 per RN verbal report. Percent of energy/protein needs met: 90% energy 100% pro Burn Absent Trauma Absent #1 Nutrition Diagnosis Inadequate oral intake Diagnosis Progress(for reassessment Continues documentation) Is patient on ventilator? Yes Is Patient Ambulatory and/or Out of Bed No REE-([facility] Jemt-confined to bed) [phone] Calculation Used for Recommendations [facility] Additional Notes Pro needs 1.2-2g/k-126g/ day Fluid needs 1ml/kcal Nutrition Intervention Nutrition Support: Continue Vital AF 1.2 at 50ml/ hr with 75ml water flush q4h. Kcal 1,440 Protein (gm) 90 Carbohydrates (gm) 133 Fat (gm) 65 Fluid (mL) 973 Fiber (gm) 6 Goal #1 TF tolerance Goal #2 TF to meet at least 75% energy and pro needs Follow-Up By: 03/28/22 Additional Comments F/U: stable TF, trach/PEG placement, vent status, wt, BM <JOAUQIN ROBIN - Last Filed: 03/26/22 07:44> Assessment and Plan Assessment and plan: I saw and evaluated the patient. I agree with the findings and the plan of care as documented in the Nurse Practitioner's~note, with the following corrections and additions. Hospitalist Physical - Constitutional Vitals: Temp Pulse Resp BP Pulse Ox 98.5 F 103 H 16 104/51 94 03/26/22 07:06 03/26/22 07:30 03/26/22 07:30 03/26/22 07:26 03/26/22 07:26 HEART Score - HEART Score Troponin: Troponin T < 0.010 ng/mL (0.00-0.029) 02/18/22 21:02 Results - Labs CBC & Chem 7: 03/24/22 03:47 03/24/22 03:47 Labs: Laboratory Last Values WBC 6.6 K/mm3 (4.5-11.0) 03/24/22 03:47 RBC 3.18 M/mm3 (3.65-5.03) L 03/24/22 03:47 Hgb 10.1 gm/dl (11.8-15.2) L 03/24/22 03:47 Hct 31.1 % (35.5-45.6) L 03/24/22 03:47 MCV 98 fl (84-94) H 03/24/22 03:47 MCH 32 pg (28-32) 03/24/22 03:47 MCHC 33 % (32-34) 03/24/22 03:47 RDW 17.4 % (13.2-15.2) H 03/24/22 03:47 Plt Count 356 K/mm3 (140-440) 03/24/22 03:47 Lymph % (Auto) 13.3 % (13.4-35.0) L 03/10/22 03:57 [place] % (Auto) 12.5 % (0.0-7.3) H 03/10/22 03:57 Eos % (Auto) 1.4 % (0.0-4.3) 03/10/22 03:57 Baso % (Auto) 0.4 % (0.0-1.8) 03/10/22 03:57 Lymph # (Auto) 1.3 K/mm3 (1.2-5.4) 03/10/22 03:57 [place] # (Auto) 1.3 K/mm3 (0.0-0.8) H 03/10/22 03:57 Eos # (Auto) 0.1 K/mm3 (0.0-0.4) 03/10/22 03:57 Baso # (Auto) 0.0 K/mm3 (0.0-0.1) 03/10/22 03:57 Add Manual Diff Complete 03/03/22 03:54 Total Counted 100 03/03/22 03:54 Seg Neutrophils % 72.4 % (40.0-70.0) H 03/10/22 03:57 Seg Neuts % (Manual) 95.0 % (40.0-70.0) H 03/03/22 03:54 Band Neutrophils % 0 % 03/03/22 03:54 Lymphocytes % (Manual) 3.0 % (13.4-35.0) L 03/03/22 03:54 Reactive Lymphs % (Man) 0 % 03/03/22 03:54 Monocytes % (Manual) 2.0 % (0.0-7.3) 03/03/22 03:54 Eosinophils % (Manual) 0 % (0.0-4.3) 03/03/22 03:54 Basophils % (Manual) 0 % (0.0-1.8) 03/03/22 03:54 Metamyelocytes % 0 % 03/03/22 03:54 Myelocytes % 0 % 03/03/22 03:54 Promyelocytes % 0 % 03/03/22 03:54 Blast Cells % 0 % 03/03/22 03:54 Nucleated RBC % Not Reportable 03/03/22 03:54 Seg Neutrophils # 7.4 K/mm3 (1.8-7.7) 03/10/22 03:57 Seg Neutrophils # Man 18.5 K/mm3 (1.8-7.7) H 03/03/22 03:54 Band Neutrophils # 0.0 K/mm3 03/03/22 03:54 Lymphocytes # (Manual) 0.6 K/mm3 (1.2-5.4) L 03/03/22 03:54 Abs React Lymphs (Man) 0.0 K/mm3 03/03/22 03:54 Monocytes # (Manual) 0.4 K/mm3 (0.0-0.8) 03/03/22 03:54 Eosinophils # (Manual) 0.0 K/mm3 (0.0-0.4) 03/03/22 03:54 Basophils # (Manual) 0.0 K/mm3 (0.0-0.1) 03/03/22 03:54 Metamyelocytes # 0.0 K/mm3 03/03/22 03:54 Myelocytes # 0.0 K/mm3 03/03/22 03:54 Promyelocytes # 0.0 K/mm3 03/03/22 03:54 Blast Cells # 0.0 K/mm3 03/03/22 03:54 WBC Morphology Not Reportable 03/03/22 03:54 Hypersegmented Neuts Not Reportable 03/03/22 03:54 Hyposegmented Neuts Not Reportable 03/03/22 03:54 Hypogranular Neuts Not Reportable 03/03/22 03:54 Smudge Cells Not Reportable 03/03/22 03:54 Toxic Granulation Not Reportable 03/03/22 03:54 Toxic Vacuolation Not Reportable 03/03/22 03:54 Dohle Bodies Not Reportable 03/03/22 03:54 Pelger-Huet Anomaly Not Reportable 03/03/22 03:54 Lakshmi Rods Not Reportable 03/03/22 03:54 Platelet Estimate Consistent w auto 03/03/22 03:54 Clumped Platelets Not Reportable 03/03/22 03:54 Plt Clumps, EDTA Not Reportable 03/03/22 03:54 Large Platelets Not Reportable 03/03/22 03:54 Giant Platelets Not Reportable 03/03/22 03:54 Platelet Satelliting Not Reportable 03/03/22 03:54 Plt Morphology Comment Not Reportable 03/03/22 03:54 RBC Morphology Not Reportable 03/03/22 03:54 Dimorphic RBCs Not Reportable 03/03/22 03:54 Polychromasia Not Reportable 03/03/22 03:54 Hypochromasia Not Reportable 03/03/22 03:54 Poikilocytosis Not Reportable 03/03/22 03:54 Anisocytosis 1+ 03/03/22 03:54 Microcytosis Not Reportable 03/03/22 03:54 Macrocytosis Not Reportable 03/03/22 03:54 Spherocytes Not Reportable 03/03/22 03:54 Pappenheimer Bodies Not Reportable 03/03/22 03:54 Sickle Cells Not Reportable 03/03/22 03:54 Target Cells Not Reportable 03/03/22 03:54 Tear Drop Cells Not Reportable 03/03/22 03:54 Ovalocytes Not Reportable 03/03/22 03:54 Helmet Cells Not Reportable 03/03/22 03:54 [place] Bodies Not Reportable 03/03/22 03:54 [place] Rings Not Reportable 03/03/22 03:54 [place] Cells Not Reportable 03/03/22 03:54 Bite Cells Not Reportable 03/03/22 03:54 Crenated Cell Not Reportable 03/03/22 03:54 Elliptocytes Not Reportable 03/03/22 03:54 Acanthocytes (Spur) Not Reportable 03/03/22 03:54 Rouleaux Not Reportable 03/03/22 03:54 Hemoglobin C Crystals Not Reportable 03/03/22 03:54 Schistocytes Not Reportable 03/03/22 03:54 Malaria parasites Not Reportable 03/03/22 03:54 Cash Bodies Not Reportable 03/03/22 03:54 Hem Pathologist Commnt No 03/03/22 03:54 PT 16.2 Sec. (12.2-14.9) H 03/11/22 04:02 INR 1.16 (0.87-1.13) H 03/11/22 04:02 ABG pH 7.392 pH Units (7.350-7.450) 03/22/22 14:25 ABG pCO2 54.4 mm Hg 03/22/22 14:25 ABG pO2 150.5 mm Hg (80.0-90.0) H 03/22/22 14:25 ABG HCO3 32.4 mmol/L (20.0-26.0) H 03/22/22 14:25 ABG O2 Saturation 98.8 % (95.0-99.0) 03/22/22 14:25 ABG O2 Content 15.8 (0.0-44) 03/22/22 14:25 ABG Base Excess 6.2 mmol/L (-2.0-3.0) H 03/22/22 14:25 ABG Hemoglobin 11.4 gm/dl (14.0-18.0) L 03/22/22 14:25 ABG Carboxyhemoglobin 1.6 % (0.0-5.0) 03/22/22 14:25 ABG Methemoglobin 0.6 % (0.0-1.5) 03/22/22 14:25 Oxyhemoglobin 96.6 % (95.0-99.0) 03/22/22 14:25 FiO2 30 % 03/22/22 14:25 Sodium 139 mmol/L (137-145) 03/24/22 03:47 Potassium 4.3 mmol/L (3.6-5.0) 03/24/22 03:47 Chloride 101.7 mmol/L (98-107) 03/24/22 03:47 Carbon Dioxide 30 mmol/L (22-30) 03/24/22 03:47 Anion Gap 12 mmol/L 03/24/22 03:47 BUN 20 mg/dL (9-20) 03/24/22 03:47 Creatinine 0.5 mg/dL (0.8-1.3) L 03/24/22 03:47 Estimated GFR > 60 ml/min 03/24/22 03:47 BUN/Creatinine Ratio 40 % 03/24/22 03:47 Glucose 99 mg/dL (75-100) 03/24/22 03:47 POC Glucose 114 mg/dL (70-105) H 03/26/22 05:18 Lactic Acid 1.20 mmol/L (0.7-2.0) 02/18/22 21:02 Calcium 8.5 mg/dL (8.4-10.2) 03/24/22 03:47 Phosphorus 3.50 mg/dL (2.5-4.5) 03/20/22 04:09 Magnesium 2.00 mg/dL (1.7-2.3) 03/20/22 04:09 Total Bilirubin 0.30 mg/dL (0.1-1.2) 03/10/22 03:57 AST 17 units/L (5-40) 03/10/22 03:57 ALT 18 units/L (7-56) 03/10/22 03:57 Alkaline Phosphatase 89 units/L (35-129) 03/10/22 03:57 Ammonia 14.0 umol/L (25-60) L 02/18/22 23:22 Troponin T < 0.010 ng/mL (0.00-0.029) 02/18/22 21:02 Total Protein 6.6 g/dL (6.3-8.2) 03/10/22 03:57 Albumin 1.9 g/dL (3.9-5) L 03/10/22 03:57 Albumin/Globulin Ratio 0.4 % 03/10/22 03:57 Urine Color Dark yellow (Yellow) 02/18/22 Unknown Urine Turbidity Clear (Clear) 02/18/22 Unknown Urine pH 7.0 (5.0-7.0) 02/18/22 Unknown Ur Specific [place] 1.015 (1.003-1.030) 02/18/22 Unknown Urine Protein <15 mg/dl mg/dL (Negative) 02/18/22 Unknown Urine Glucose (UA) Negative mg/dL (Negative) 02/18/22 Unknown Urine Ketones Negative mg/dL (Negative) 02/18/22 Unknown Urine Blood Trace (Negative) 02/18/22 Unknown Urine Nitrite Negative (Negative) 02/18/22 Unknown Urine Bilirubin Negative (Negative) 02/18/22 Unknown Urine Urobilinogen < 2.0 mg/dL (<2.0) 02/18/22 Unknown Ur Leukocyte Esterase Negative (Negative) 02/18/22 Unknown Urine WBC (Auto) 2.0 /HPF (0.0-6.0) 02/18/22 Unknown Urine RBC (Auto) 9.0 /HPF (0.0-6.0) 02/18/22 Unknown Urine Mucus Few /HPF 02/18/22 Unknown Urine Opiates Screen Negative 02/18/22 Unknown Urine Methadone Screen Negative 02/18/22 Unknown Ur Barbiturates Screen Negative 02/18/22 Unknown Ur Phencyclidine Scrn Negative 02/18/22 Unknown Ur Amphetamines Screen Negative 02/18/22 Unknown U Benzodiazepines Scrn Negative 02/18/22 Unknown Urine Cocaine Screen Negative 02/18/22 Unknown U Marijuana (THC) Screen Negative 02/18/22 Unknown Drugs of Abuse Note Disclamer 02/18/22 Unknown Plasma/Serum Alcohol < 0.01 % (0-0.07) 02/18/22 21:02 Summers/IV: Voiding Method Condom Catheter Active Medications - Current Medications Current Medications: Generic Name Dose Route Start Last Admin Trade Name Freq PRN Reason Stop Dose Admin Acetaminophen 650 mg 03/03/22 09:00 Acetaminophen 325 Mg/10.15 Ml Oral Liqd Unit Dose FEEDTUBE Q4H PRN Pain, Mild (1-3); TEMP > 100.4 Albuterol 2.5 mg 03/12/22 20:00 03/26/22 07:26 Albuterol 2.5 Mg/3 Ml Nebu IH 2.5 mg Q6HRT LAZARUS Administration Famotidine 20 mg 02/25/22 10:00 03/25/22 22:18 Famotidine 20 Mg Tab FEEDTUBE 20 mg BID LAZARUS Administration Heparin Sodium (Porcine) 5,000 unit 02/19/22 06:00 03/26/22 05:22 Heparin 5,000 Unit/1 Ml Vial SUB-Q 5,000 unit Q8HR LAZARUS Administration Hydrophilic Ointment 1 applic 02/24/22 15:05 Lip Therapy Vaseline TP Q2HR PRN Dry Lips Levetiracetam 500 mg 02/25/22 22:00 03/25/22 22:18 Levetiracetam 500 Mg/5 Ml Oral Liqd FEEDTUBE 500 mg BID LAZARUS Administration Levothyroxine Sodium 25 mcg 02/26/22 06:00 03/26/22 05:22 Levothyroxine 25 Mcg Tab FEEDTUBE 25 mcg QAM@0600 LAZARUS Administration Magnesium Hydroxide 30 ml 02/19/22 02:02 Magnesium Hydroxide (Mom) Oral Liqd Udc PO Q4H PRN Constipation Midodrine 2.5 mg 03/19/22 12:00 03/26/22 07:33 Midodrine 2.5 Mg Tab FEEDTUBE 2.5 mg TID@0800,1200,1600 LAZARUS Administration Multi-Ingred Cream/Lotion/Oil/Oint 1 applic 02/24/22 15:05 Mineral Oil/Petrolatum, White Ophth Oint 3.5 Gm OU Q4HR PRN Dry Eye(s) Ondansetron HCl 4 mg 02/19/22 02:02 Ondansetron 4 Mg/2 Ml Inj IV Q8H PRN Nausea And Vomiting Pravastatin Sodium 40 mg 02/25/22 22:00 03/25/22 22:18 Pravastatin 40 Mg Tab FEEDTUBE 40 mg QHS LAZARUS Administration Senna/Docusate Sodium 1 tab 02/24/22 22:00 03/25/22 22:18 Sennosides/Docusate Sodium 8.6/50 Mg Tab FEEDTUBE 1 tab BID LAZARUS Administration Sodium Chloride 10 ml 02/19/22 10:00 03/25/22 22:19 Sodium Chloride 0.9% 10 Ml Flush Syringe IV 10 ml BID LAZARUS Administration Sodium Chloride 10 ml 02/19/22 02:02 03/03/22 14:21 Sodium Chloride 0.9% 10 Ml Flush Syringe IV 10 ml PRN PRN Administration LINE FLUSH Nutrition/Malnutrition Assess - Dietary Evaluation Nutrition/Malnutrition Findings: Nutrition Notes Start: 02/19/22 14:29 Freq: Status: Active Protocol: Document 03/21/22 15:43 IVAN (Rec: 03/21/22 15:45 IVAN [id number]) Nutrition Notes Initial or Follow up Reassessment Current Diagnosis Hypertension,Respiratory Failure,Hyperlipidemia Other Pertinent Diagnosis Asp pneu, acute encephalopathy , seizure d/o, partial blindness Current Diet TF - Vital AF 1.2 at 50ml/hr Labs/Tests Reviewed Pertinent Medications Reviewed Height 5 ft 3 in Weight 63.2 kg [place] Body Weight (kg) 56.36 BMI 24.7 Weight Status Appropriate Subjective/Other Information Pt remains on vent support; still awaiting decision on guardianship for trach/PEG placement. Pt continues to tolerate TF at goal rate. Last BM was 03/18 per RN verbal report. Percent of energy/protein needs met: 90% energy 100% pro Burn Absent Trauma Absent #1 Nutrition Diagnosis Inadequate oral intake Diagnosis Progress(for reassessment Continues documentation) Is patient on ventilator? Yes Is Patient Ambulatory and/or Out of Bed No REE-([place] Jeor-confined to bed) [phone] Calculation Used for Recommendations [place] Je[place] Additional Notes Pro needs 1.2-2g/k-126g/ day Fluid needs 1ml/kcal Nutrition Intervention Nutrition Support: Continue Vital AF 1.2 at 50ml/ hr with 75ml water flush q4h. Kcal 1,440 Protein (gm) 90 Carbohydrates (gm) 133 Fat (gm) 65 Fluid (mL) 973 Fiber (gm) 6 Goal #1 TF tolerance Goal #2 TF to meet at least 75% energy and pro needs Follow-Up By: 03/28/22 Additional Comments F/U: stable TF, trach/PEG placement, vent status, wt, BM
--- NOTE | 2022-03-24 13:24 | Progress Note ---
Assessment and Plan 61 y/o male with abnormal CT of chest. 03/24/22: Day 28 of intubation. reviewed my partners notes from the weekend. Glad patient is tolerating PSV however do not see conventional extubation in the near future given patient's mental status and how fast he failed extubation (within an hour) on his first attempt. Patient was also a difficult re- intubation. Follow up with CM and hospital tomorrow. Continue supportive measures. 03/21/22: Day 25 of intubation. No new updates from the hospital about guardianship. Wound care saw on yesterday. Continue daily PSV trials as tolerated. Guarded prognosis. 03/20/22: Day 24 of intubation. No new recommendations. Still awaiting hospital update in regards to guardianship so that decisions can be made. Continue supportive measures. Wound care to see today. 03/19/22: Day 23 of intubation. Prognosis is still guarded. Will discuss with RT about attempts at daily PSV trials. Per notes, Wound care to see , wound was present on admission. 03/18/22: Day 22 of intubation. Prognosis remains guarded. Not able to obtain trach and peg with consent. Continue daily PSV trials as tolerated. 03/17/22: Day 21 of intubation. Still awaiting some form of decision maker for trach and peg placement. Guarded prognosis. 03/16/22: Day 20 of intubation. BP stable. Continue midodrine. Awaiting emergency guardianship from Court to obtain consent for trach and peg. Guarded prognosis. 03/15/22: Day 19 of intubation. BP now is marginal more regularly. Will give an additional liter bolus of LR now. May need to increase Midodrine back to 5. Needs trach in order to be safely weaned from ventilator. Will need peg tube placement in addition to trach. Prognosis remains guarded. Continue PSV trials as tolerated. 03/14/22: Day 18 of intubation. Vitals stable and mental status is unchanged. Still in need of tracheostomy as well as peg tube placement. No guardian ap pointed yet. 03/13/22: Day 17 of intubation. Agree with bolus and restarting of midodrine. was stopped previously secondary to bradycardia. If patient spikes temp, will culture blood and urine and repeat CXR. Continue daily PSV trials to assess ability for vent liberation. Continues to need trach however no family/guardian to provide consent. Guarded prognosis. 03/12/22: Day 16 of intubation. Following up with hospital in regards to guardian. Continue supportive measures. Guarded prognosis. 03/11/22: hospital now attempting to find emergency guardian to have consent for trach as ethics committee cannot comment on this matter so unable to help. Until then will remain intubated orally. Failed PSV yesterday, will continue to attempt on daily basis. Unfortunate situation. Guarded prognosis. 03/10/22: Today nuñez day 14 of intubation. Given patient's mental state and increased risk of aspiration, the likelihood of conventional extubation with success is very very slim and the patient has already failed this in an extremely short period of time (less than 1 hour). I suspect that he will fail again if tried and could create more difficult reintubation as he was a diffic ult reintubation on his failed extubation attempt. To prevent further decline and potential complications of prolonged mechanical ventilation, will discuss with ethics and the hospital to use 2 physician consent to obtain trach and peg for this patient with hopes of liberating him from the mechanical ventilator. he has very minimal vent requirements but as been stated several times above, he continues to aspirate and failed conventional extubation almost immediately. Will consult surgery today. Dr. Mancia is prepared to sign consent as well as myself. Hopeful surgery will be on board with this. Continue supportive care for now. Attempt daily PSV trials. 03/07/22: Daily PSV trials as tolerated. Still no one to step up as adult friend. patient has now been intubated since 02/24/22 and is approaching the time period in which prolonged mechanical ventilation could lead to significant c omplications that could be detrimental to health (infection, stenosis, malacia etc). Will discuss again with ethics but in regards to medical necessity, may need to consider two physician consent if no one is able to claim responsibility for this patient. He is a full code and we must work in his best interest to prevent further harm. Continue supportive measures but he is not a candidate for conventional extubation given his mental state, despite being on minimal support. He has already failed this before. 03/06/22: PSV trials daily. Will discuss with RT. Spoke with ethics. Plan in place and awaiting on news from longterm and state. Continue supportive measures. Patient has been intubated since 02/24/22 and is approaching the 2 week shadi of intubation will need to make decisions soon to avoid unnecessary complications related to prolonged intubation. 03/05/22: Will follow up with ethics today. Awaiting some guidance about consent for trach and peg. This is a medical necessity to liberate patient from mechanical ventilation. Continue supportive measures. Ok with daily PSV trials 03/04/22: Follow up with ethics later this afternoon. Spoke with RT and patient does have cuff leak, will stop steroids. Stopping midodrine as BP is stable and bradycardia likely from this. 03/03/22: Await ethics eval. CM has spoken with state as well. Daily cuff leaks. Will start to wean steroids tomorrow. Midodrine can cause bradycardia. If continues or worsens will stop. Guarded prognosis. 03/02/22: Continue supportive measures. Await ethics consult before surgery consult for trach and peg. no further need for fluid boluses. Will continue stress dose steroids but have daily air leak checks by RT. Still will need trach, will not attempt extubation again. Guarded prognosis. 03/01/22: Patient is having increased urine output. This could be the cause of new onset hypotension. Will bolus 2 more liters of LR now and reassess. If this continues may need to work up for SIADH including repeat head CT. Follow up ethics review of case. Will need trach for ventilator liberation. Overall prognosis remains guarded. 02/28/22: Will obtain CT neck, noncontrast to look for airway edema or other possible etiologies for failure. Needs ethics consult as given patient's mental state, inability to clear secretions appropriately, will need trach now that he has failed extubation. However he has no family and no POA so no one to give consent. Continue supportive measures. Guarded prognosis. 02/27/22: Continue improvement of oxygenation. Will drop PEEP down today with goal of being at 6 by in the morning. Will repeat CT scan to confirm improvement as no endobronchial lesion was seen, but also to make sure no parenchymal mass. There was no evidence of extrinsic compression during bronch. Likely extubation tomorrow post CT. 02/26/22: Repeat CXR now. Wean Vent as tolerated. Hopeful extubation soon. Mucous removed. NO ENDOBRONCHIAL LESION/MASS 02/25/22: Bronch tentatively planned for tomorrow with therapeutic scope. Aw aiting GI lab to give a time. NPO after midnight. Continue high PEEP 02/24/22: WIll attempt to bronch tomorrow morning. NPO after midnight. Just received word from GI lab they are not able to do bronch tomorrow. Cancel NPO order. Continue to feed patient. Repeat ABG in AM along with CXR. 02/21/22: No new pulm recs for today. Please obtain repeat CXR likely on Thursday. If patient happens to get worse, likely not a candidate for bipap given his weak cough and mental state and inability to communicate. If worsens and requires intubation, will bronch then under emergent circumstances if no POA or family is able to be located. Continue CPT. Will discuss with RT about NT suctioning. 02/20/22: Saw speech while on the floor. Would like patient to be NPO now. Discussed with nurse on floor and with IMS. Same recs pulm way as yesterday. Would benefit from bronch if able to get consent as this is not emergent. Continue CPT and q shift NT suctioning. Reviewed admission in the past and of note, patient was recently admitted last month and had a CXR done on the 29 of January that was normal. Given this patient's medical history and the history that I obtained from the nursing staff that at the nursing home he was eating solid foods, I suspect that this is aspiration, possibly of a foreign body (most likely food) with atelectasis of the right lower lobe. It is highly unlikely that a mass evolved in size in less than a months time and patient, besides age, has no real risk factors for lung carcinoma. Discussed with the nurse and unfortunately there is no identifiable person that is able to give consent. Bronchoscopy is needed in the case to evaluate to see if lung mass is there vs foreign body, but at this time not able to do. In the meanwhile will recommend the following. 1. Will order CPT with neb therapy 3x daily 2. Suggest maybe NT suctioning q shift. May use nasal trumpet, however do not leave this device in the patient 3. Aspiration precautions 4. Consider speech eval to assess swallowing. Will continue to follow. CCT 31 minutes. Subjective Date of service: 03/24/22 Principal diagnosis: f/u Acute respiratory failure Interval history: No acute events. On PSV 14/6 and tolerating since earlier this morning. Objective Vital Signs - 12hr 03/24/22 03/24/22 03/24/22 02:00 03:00 03:15 Temperature Pulse Rate 84 82 84 Pulse Rate [ Anterior Bilateral Throughout] Respiratory 14 14 Rate Respiratory Rate [Anterior Bilateral Throughout] Blood Pressure 119/67 118/65 O2 Sat by Pulse 97 96 97 Oximetry 03/24/22 03/24/22 03/24/22 03:58 03:59 04:00 Temperature 97.8 F Pulse Rate 85 84 Pulse Rate [ 88 Anterior Bilateral Throughout] Respiratory 17 Rate Respiratory 16 Rate [Anterior Bilateral Throughout] Blood Pressure 118/65 118/65 O2 Sat by Pulse 95 92 Oximetry 03/24/22 03/24/22 03/24/22 05:00 06:01 07:00 Temperature Pulse Rate 86 83 85 Pulse Rate [ Anterior Bilateral Throughout] Respiratory 16 19 22 Rate Respiratory Rate [Anterior Bilateral Throughout] Blood Pressure 127/98 131/90 126/86 O2 Sat by Pulse 96 93 96 Oximetry 03/24/22 03/24/22 03/24/22 07:02 07:19 07:29 Temperature 98.5 F Pulse Rate 79 Pulse Rate [ 86 Anterior Bilateral Throughout] Respiratory Rate Respiratory 19 Rate [Anterior Bilateral Throughout] Blood Pressure 126/86 O2 Sat by Pulse 96 Oximetry 03/24/22 03/24/22 03/24/22 08:00 08:05 09:00 Temperature Pulse Rate 77 75 Pulse Rate [ Anterior Bilateral Throughout] Respiratory 12 15 Rate Respiratory Rate [Anterior Bilateral Throughout] Blood Pressure 115/65 119/64 O2 Sat by Pulse 98 98 98 Oximetry 03/24/22 03/24/22 03/24/22 10:00 11:45 12:00 Temperature 98.2 F Pulse Rate 74 74 Pulse Rate [ Anterior Bilateral Throughout] Respiratory 17 Rate Respiratory Rate [Anterior Bilateral Throughout] Blood Pressure 115/70 115/70 O2 Sat by Pulse 94 94 Oximetry Constitutional: alert, other (critically ill on ventilator) Eyes: non-icteric ENT: oropharynx moist Neck: supple Effort: normal Ascultation: Bilateral: diminished breath sounds, rhonchi Cardiovascular: regular rate and rhythm (no mrg) Gastrointestinal: normoactive bowel sounds, soft, non-tender (on o2 vest in place), non-distended Integumentary: normal Extremities: no cyanosis, no edema Neurologic: other (awake) Psychiatric: other (unable to assess) CBC and BMP: 03/24/22 03:47 03/24/22 03:47 ABG, PT/INR, D-dimer: ABG ABG pH 7.392 pH Units (7.350-7.450) 03/22/22 14:25 ABG pCO2 54.4 mm Hg 03/22/22 14:25 ABG pO2 150.5 mm Hg (80.0-90.0) H 03/22/22 14:25 ABG O2 Saturation 98.8 % (95.0-99.0) 03/22/22 14:25 PT/INR, D-dimer PT 16.2 Sec. (12.2-14.9) H 03/11/22 04:02 INR 1.16 (0.87-1.13) H 03/11/22 04:02 Abnormal lab findings: Abnormal Labs 02/18/22 02/18/22 02/18/22 19:34 21:02 21:02 WBC RBC Hgb Hct MCV 101 H MCH 34 H MCHC RDW 16.1 H Lymph % (Auto) [place] % (Auto) 12.4 H Lymph # (Auto) [place] # (Auto) 1.2 H Seg Neutrophils % 73.0 H Seg Neuts % (Manual) Lymphocytes % (Manual) Seg Neutrophils # Seg Neutrophils # Man Lymphocytes # (Manual) PT 16.9 H INR 1.20 H ABG pH ABG pO2 ABG HCO3 ABG O2 Saturation ABG Base Excess ABG Hemoglobin Oxyhemoglobin Sodium Potassium Chloride Carbon Dioxide BUN Creatinine Glucose POC Glucose 116 H Calcium Phosphorus AST ALT Ammonia Albumin 02/18/22 02/18/22 02/18/22 21:02 22:45 23:22 WBC RBC Hgb Hct MCV MCH MCHC RDW Lymph % (Auto) [place] % (Auto) Lymph # (Auto) [place] # (Auto) Seg Neutrophils % Seg Neuts % (Manual) Lymphocytes % (Manual) Seg Neutrophils # Seg Neutrophils # Man Lymphocytes # (Manual) PT INR ABG pH ABG pO2 55.6 L ABG HCO3 28.4 H ABG O2 Saturation 91.5 L ABG Base Excess 3.8 H ABG Hemoglobin 13.2 L Oxyhemoglobin 89.6 L Sodium Potassium 5.1 H Chloride Carbon Dioxide BUN Creatinine Glucose 102 H POC Glucose Calcium Phosphorus AST 48 H ALT 64 H Ammonia 14.0 L Albumin 2.7 L 02/20/22 02/20/22 02/23/22 04:59 04:59 06:29 WBC 11.4 H RBC Hgb Hct MCV 103 H MCH 33 H MCHC RDW 16.5 H Lymph % (Auto) 5.5 L [place] % (Auto) 12.1 H Lymph # (Auto) 0.6 L [place] # (Auto) 1.4 H Seg Neutrophils % 81.4 H Seg Neuts % (Manual) Lymphocytes % (Manual) Seg Neutrophils # 9.2 H Seg Neutrophils # Man Lymphocytes # (Manual) PT INR ABG pH ABG pO2 ABG HCO3 ABG O2 Saturation ABG Base Excess ABG Hemoglobin Oxyhemoglobin Sodium Potassium Chloride Carbon Dioxide BUN Creatinine Glucose POC Glucose 113 H Calcium 8.2 L Phosphorus AST ALT Ammonia Albumin 02/23/22 02/23/22 02/24/22 11:22 16:10 00:02 WBC RBC Hgb Hct MCV MCH MCHC RDW Lymph % (Auto) [place] % (Auto) Lymph # (Auto) [place] # (Auto) Seg Neutrophils % Seg Neuts % (Manual) Lymphocytes % (Manual) Seg Neutrophils # Seg Neutrophils # Man Lymphocytes # (Manual) PT INR ABG pH ABG pO2 ABG HCO3 ABG O2 Saturation ABG Base Excess ABG Hemoglobin Oxyhemoglobin Sodium Potassium Chloride Carbon Dioxide BUN Creatinine Glucose POC Glucose 108 H 115 H 109 H Calcium Phosphorus AST ALT Ammonia Albumin 02/24/22 02/24/22 02/24/22 11:05 11:05 13:20 WBC RBC 3.55 L Hgb Hct MCV 100 H MCH 34 H MCHC RDW 15.6 H Lymph % (Auto) [place] % (Auto) Lymph # (Auto) [place] # (Auto) Seg Neutrophils % Seg Neuts % (Manual) Lymphocytes % (Manual) Seg Neutrophils # Seg Neutrophils # Man Lymphocytes # (Manual) PT INR ABG pH ABG pO2 ABG HCO3 ABG O2 Saturation ABG Base Excess ABG Hemoglobin Oxyhemoglobin Sodium 146 H Potassium 3.2 L D Chloride 108.4 H Carbon Dioxide BUN Creatinine 0.5 L Glucose POC Glucose 111 H Calcium 7.9 L Phosphorus 2.20 L AST ALT Ammonia Albumin 02/24/22 02/24/22 02/24/22 16:30 17:03 20:25 WBC RBC Hgb Hct MCV MCH MCHC RDW Lymph % (Auto) [place] % (Auto) Lymph # (Auto) [place] # (Auto) Seg Neutrophils % Seg Neuts % (Manual) Lymphocytes % (Manual) Seg Neutrophils # Seg Neutrophils # Man Lymphocytes # (Manual) PT INR ABG pH 7.319 L ABG pO2 65.3 L ABG HCO3 31.3 H ABG O2 Saturation 92.2 L ABG Base Excess 3.8 H ABG Hemoglobin 12.0 L Oxyhemoglobin 90.3 L Sodium Potassium Chloride 107.9 H Carbon Dioxide BUN 8 L Creatinine 0.4 L Glucose POC Glucose 108 H Calcium 7.6 L Phosphorus 4.60 H D AST ALT Ammonia Albumin 02/25/22 02/25/22 02/25/22 04:12 04:12 05:05 WBC RBC 3.07 L Hgb 10.2 L Hct 31.5 L MCV 103 H MCH 33 H MCHC RDW 15.6 H Lymph % (Auto) [place] % (Auto) Lymph # (Auto) [place] # (Auto) Seg Neutrophils % Seg Neuts % (Manual) Lymphocytes % (Manual) Seg Neutrophils # Seg Neutrophils # Man Lymphocytes # (Manual) PT INR ABG pH ABG pO2 ABG HCO3 32.5 H ABG O2 Saturation ABG Base Excess 5.6 H ABG Hemoglobin 10.8 L Oxyhemoglobin 94.8 L Sodium Potassium 3.5 L Chloride 107.7 H Carbon Dioxide BUN Creatinine 0.5 L Glucose POC Glucose Calcium 7.0 L Phosphorus AST ALT Ammonia Albumin 02/25/22 02/25/22 02/26/22 12:05 18:33 00:07 WBC RBC Hgb Hct MCV MCH MCHC RDW Lymph % (Auto) [place] % (Auto) Lymph # (Auto) [place] # (Auto) Seg Neutrophils % Seg Neuts % (Manual) Lymphocytes % (Manual) Seg Neutrophils # Seg Neutrophils # Man Lymphocytes # (Manual) PT INR ABG pH ABG pO2 ABG HCO3 ABG O2 Saturation ABG Base Excess ABG Hemoglobin Oxyhemoglobin Sodium Potassium Chloride Carbon Dioxide BUN Creatinine Glucose POC Glucose 127 H 125 H 114 H Calcium Phosphorus AST ALT Ammonia Albumin 02/26/22 02/26/22 02/26/22 03:30 04:42 11:34 WBC RBC Hgb Hct MCV MCH MCHC RDW Lymph % (Auto) [place] % (Auto) Lymph # (Auto) [place] # (Auto) Seg Neutrophils % Seg Neuts % (Manual) Lymphocytes % (Manual) Seg Neutrophils # Seg Neutrophils # Man Lymphocytes # (Manual) PT INR ABG pH ABG pO2 143.2 H ABG HCO3 33.2 H ABG O2 Saturation ABG Base Excess 6.5 H ABG Hemoglobin 9.4 L Oxyhemoglobin Sodium Potassium Chloride Carbon Dioxide 32 H BUN Creatinine 0.7 L Glucose POC Glucose 114 H Calcium 8.0 L Phosphorus AST ALT Ammonia Albumin 02/26/22 02/26/22 02/27/22 18:17 23:37 04:19 WBC 13.7 H RBC 2.78 L Hgb 9.3 L Hct 28.5 L MCV 103 H MCH 33 H MCHC RDW 16.3 H Lymph % (Auto) [place] % (Auto) Lymph # (Auto) [place] # (Auto) Seg Neutrophils % Seg Neuts % (Manual) Lymphocytes % (Manual) Seg Neutrophils # Seg Neutrophils # Man Lymphocytes # (Manual) PT INR ABG pH ABG pO2 ABG HCO3 ABG O2 Saturation ABG Base Excess ABG Hemoglobin Oxyhemoglobin Sodium Potassium Chloride Carbon Dioxide BUN Creatinine Glucose POC Glucose 111 H 117 H Calcium Phosphorus AST ALT Ammonia Albumin 02/27/22 02/27/22 02/27/22 04:19 04:35 05:27 WBC RBC Hgb Hct MCV MCH MCHC RDW Lymph % (Auto) [place] % (Auto) Lymph # (Auto) [place] # (Auto) Seg Neutrophils % Seg Neuts % (Manual) Lymphocytes % (Manual) Seg Neutrophils # Seg Neutrophils # Man Lymphocytes # (Manual) PT INR ABG pH ABG pO2 96.3 H ABG HCO3 34.9 H ABG O2 Saturation ABG Base Excess 8.1 H ABG Hemoglobin Oxyhemoglobin Sodium Potassium Chloride Carbon Dioxide 31 H BUN Creatinine 0.6 L Glucose 107 H POC Glucose 133 H Calcium 7.8 L Phosphorus AST ALT Ammonia Albumin 02/27/22 02/27/22 02/28/22 11:15 23:35 03:38 WBC 13.3 H RBC 3.05 L Hgb 10.2 L Hct 30.7 L MCV 101 H MCH 33 H MCHC RDW 16.1 H Lymph % (Auto) [place] % (Auto) Lymph # (Auto) [place] # (Auto) Seg Neutrophils % Seg Neuts % (Manual) Lymphocytes % (Manual) Seg Neutrophils # Seg Neutrophils # Man Lymphocytes # (Manual) PT INR ABG pH ABG pO2 ABG HCO3 ABG O2 Saturation ABG Base Excess ABG Hemoglobin Oxyhemoglobin Sodium Potassium Chloride Carbon Dioxide BUN Creatinine Glucose POC Glucose 129 H 122 H Calcium Phosphorus AST ALT Ammonia Albumin 02/28/22 02/28/22 02/28/22 04:50 05:30 09:30 WBC RBC Hgb Hct MCV MCH MCHC RDW Lymph % (Auto) [place] % (Auto) Lymph # (Auto) [place] # (Auto) Seg Neutrophils % Seg Neuts % (Manual) Lymphocytes % (Manual) Seg Neutrophils # Seg Neutrophils # Man Lymphocytes # (Manual) PT INR ABG pH 7.451 H 7.488 H ABG pO2 77.0 L ABG HCO3 37.1 H 34.6 H ABG O2 Saturation ABG Base Excess 11.5 H 10.1 H ABG Hemoglobin 10.1 L 10.0 L Oxyhemoglobin Sodium Potassium Chloride Carbon Dioxide BUN Creatinine Glucose POC Glucose 121 H Calcium Phosphorus AST ALT Ammonia Albumin 02/28/22 02/28/22 03/01/22 11:36 23:07 04:27 WBC 12.5 H RBC 2.85 L Hgb 9.5 L Hct 28.6 L MCV 101 H MCH 33 H MCHC RDW 15.7 H Lymph % (Auto) [place] % (Auto) Lymph # (Auto) [place] # (Auto) Seg Neutrophils % Seg Neuts % (Manual) Lymphocytes % (Manual) Seg Neutrophils # Seg Neutrophils # Man Lymphocytes # (Manual) PT INR ABG pH ABG pO2 ABG HCO3 ABG O2 Saturation ABG Base Excess ABG Hemoglobin Oxyhemoglobin Sodium Potassium Chloride Carbon Dioxide BUN Creatinine Glucose POC Glucose 112 H 107 H Calcium Phosphorus AST ALT Ammonia Albumin 03/01/22 03/01/22 03/01/22 04:27 05:05 11:29 WBC RBC Hgb Hct MCV MCH MCHC RDW Lymph % (Auto) [place] % (Auto) Lymph # (Auto) [place] # (Auto) Seg Neutrophils % Seg Neuts % (Manual) Lymphocytes % (Manual) Seg Neutrophils # Seg Neutrophils # Man Lymphocytes # (Manual) PT INR ABG pH ABG pO2 ABG HCO3 ABG O2 Saturation ABG Base Excess ABG Hemoglobin Oxyhemoglobin Sodium 147 H D Potassium Chloride Carbon Dioxide 34 H BUN Creatinine 0.6 L Glucose 128 H POC Glucose 119 H 121 H Calcium 7.9 L Phosphorus AST ALT Ammonia Albumin 03/01/22 03/01/22 03/02/22 16:15 23:57 05:18 WBC RBC Hgb Hct MCV MCH MCHC RDW Lymph % (Auto) [place] % (Auto) Lymph # (Auto) [place] # (Auto) Seg Neutrophils % Seg Neuts % (Manual) Lymphocytes % (Manual) Seg Neutrophils # Seg Neutrophils # Man Lymphocytes # (Manual) PT INR ABG pH ABG pO2 110.5 H ABG HCO3 33.0 H ABG O2 Saturation ABG Base Excess 7.4 H ABG Hemoglobin 8.6 L Oxyhemoglobin Sodium Potassium Chloride Carbon Dioxide BUN Creatinine Glucose POC Glucose 134 H 140 H Calcium Phosphorus AST ALT Ammonia Albumin 03/02/22 03/02/22 03/02/22 05:53 09:04 09:04 WBC 15.0 H RBC 3.00 L Hgb 9.7 L Hct 30.7 L MCV 102 H MCH MCHC RDW 16.6 H Lymph % (Auto) [place] % (Auto) Lymph # (Auto) [place] # (Auto) Seg Neutrophils % Seg Neuts % (Manual) Lymphocytes % (Manual) Seg Neutrophils # Seg Neutrophils # Man Lymphocytes # (Manual) PT INR ABG pH ABG pO2 ABG HCO3 ABG O2 Saturation ABG Base Excess ABG Hemoglobin Oxyhemoglobin Sodium Potassium Chloride Carbon Dioxide 31 H BUN Creatinine 0.6 L Glucose 157 H POC Glucose 158 H Calcium 7.9 L Phosphorus AST ALT Ammonia Albumin 03/02/22 03/02/22 03/02/22 11:36 16:25 23:17 WBC RBC Hgb Hct MCV MCH MCHC RDW Lymph % (Auto) [place] % (Auto) Lymph # (Auto) [place] # (Auto) Seg Neutrophils % Seg Neuts % (Manual) Lymphocytes % (Manual) Seg Neutrophils # Seg Neutrophils # Man Lymphocytes # (Manual) PT INR ABG pH ABG pO2 ABG HCO3 ABG O2 Saturation ABG Base Excess ABG Hemoglobin Oxyhemoglobin Sodium Potassium Chloride Carbon Dioxide BUN Creatinine Glucose POC Glucose 160 H 132 H 157 H Calcium Phosphorus AST ALT Ammonia Albumin 03/03/22 03/03/22 03/03/22 03:54 03:54 05:27 WBC 19.5 H RBC 2.79 L Hgb 9.0 L Hct 28.6 L MCV 102 H MCH MCHC RDW 16.2 H Lymph % (Auto) [place] % (Auto) Lymph # (Auto) [place] # (Auto) Seg Neutrophils % Seg Neuts % (Manual) 95.0 H Lymphocytes % (Manual) 3.0 L Seg Neutrophils # Seg Neutrophils # Man 18.5 H Lymphocytes # (Manual) 0.6 L PT INR ABG pH ABG pO2 ABG HCO3 ABG O2 Saturation ABG Base Excess ABG Hemoglobin Oxyhemoglobin Sodium Potassium Chloride Carbon Dioxide BUN Creatinine 0.6 L Glucose 130 H POC Glucose 149 H Calcium 8.1 L Phosphorus AST ALT Ammonia Albumin 03/03/22 03/03/22 03/04/22 11:13 17:30 00:02 WBC RBC Hgb Hct MCV MCH MCHC RDW Lymph % (Auto) [place] % (Auto) Lymph # (Auto) [place] # (Auto) Seg Neutrophils % Seg Neuts % (Manual) Lymphocytes % (Manual) Seg Neutrophils # Seg Neutrophils # Man Lymphocytes # (Manual) PT INR ABG pH ABG pO2 ABG HCO3 ABG O2 Saturation ABG Base Excess ABG Hemoglobin Oxyhemoglobin Sodium Potassium Chloride Carbon Dioxide BUN Creatinine Glucose POC Glucose 139 H 138 H 157 H Calcium Phosphorus AST ALT Ammonia Albumin 03/04/22 03/04/22 03/04/22 05:32 05:32 05:48 WBC 16.1 H RBC 2.81 L Hgb 9.3 L Hct 28.8 L MCV 102 H MCH 33 H MCHC RDW 16.7 H Lymph % (Auto) [place] % (Auto) Lymph # (Auto) [place] # (Auto) Seg Neutrophils % Seg Neuts % (Manual) Lymphocytes % (Manual) Seg Neutrophils # Seg Neutrophils # Man Lymphocytes # (Manual) PT INR ABG pH ABG pO2 ABG HCO3 ABG O2 Saturation ABG Base Excess ABG Hemoglobin Oxyhemoglobin Sodium Potassium Chloride Carbon Dioxide BUN Creatinine 0.7 L Glucose 135 H POC Glucose 145 H Calcium 8.3 L Phosphorus AST ALT Ammonia Albumin 03/04/22 03/04/22 03/05/22 11:34 16:29 00:28 WBC RBC Hgb Hct MCV MCH MCHC RDW Lymph % (Auto) [place] % (Auto) Lymph # (Auto) [place] # (Auto) Seg Neutrophils % Seg Neuts % (Manual) Lymphocytes % (Manual) Seg Neutrophils # Seg Neutrophils # Man Lymphocytes # (Manual) PT INR ABG pH ABG pO2 ABG HCO3 ABG O2 Saturation ABG Base Excess ABG Hemoglobin Oxyhemoglobin Sodium Potassium Chloride Carbon Dioxide BUN Creatinine Glucose POC Glucose 148 H 140 H 116 H Calcium Phosphorus AST ALT Ammonia Albumin 03/05/22 03/05/22 03/05/22 06:29 11:30 17:38 WBC RBC Hgb Hct MCV MCH MCHC RDW Lymph % (Auto) [place] % (Auto) Lymph # (Auto) [place] # (Auto) Seg Neutrophils % Seg Neuts % (Manual) Lymphocytes % (Manual) Seg Neutrophils # Seg Neutrophils # Man Lymphocytes # (Manual) PT INR ABG pH ABG pO2 ABG HCO3 ABG O2 Saturation ABG Base Excess ABG Hemoglobin Oxyhemoglobin Sodium Potassium Chloride Carbon Dioxide BUN Creatinine Glucose POC Glucose 114 H 114 H 117 H Calcium Phosphorus AST ALT Ammonia Albumin 03/06/22 03/06/22 03/06/22 04:17 04:17 06:06 WBC 13.4 H RBC 2.85 L Hgb 9.4 L Hct 29.0 L MCV 102 H MCH 33 H MCHC RDW 16.4 H Lymph % (Auto) [place] % (Auto) Lymph # (Auto) [place] # (Auto) Seg Neutrophils % Seg Neuts % (Manual) Lymphocytes % (Manual) Seg Neutrophils # Seg Neutrophils # Man Lymphocytes # (Manual) PT INR ABG pH ABG pO2 ABG HCO3 ABG O2 Saturation ABG Base Excess ABG Hemoglobin Oxyhemoglobin Sodium Potassium 3.5 L Chloride Carbon Dioxide 31 H BUN Creatinine 0.6 L Glucose 101 H POC Glucose 106 H Calcium 7.7 L Phosphorus 2.00 L AST ALT Ammonia Albumin 03/06/22 03/06/22 03/07/22 18:04 23:50 05:14 WBC RBC Hgb Hct MCV MCH MCHC RDW Lymph % (Auto) [place] % (Auto) Lymph # (Auto) [place] # (Auto) Seg Neutrophils % Seg Neuts % (Manual) Lymphocytes % (Manual) Seg Neutrophils # Seg Neutrophils # Man Lymphocytes # (Manual) PT INR ABG pH ABG pO2 ABG HCO3 ABG O2 Saturation ABG Base Excess ABG Hemoglobin Oxyhemoglobin Sodium Potassium Chloride Carbon Dioxide BUN Creatinine Glucose POC Glucose 108 H 115 H 116 H Calcium Phosphorus AST ALT Ammonia Albumin 03/07/22 03/07/22 03/08/22 11:42 18:13 04:34 WBC RBC 2.86 L Hgb 9.2 L Hct 29.3 L MCV 103 H MCH MCHC 31 L RDW 16.9 H Lymph % (Auto) [place] % (Auto) Lymph # (Auto) [place] # (Auto) Seg Neutrophils % Seg Neuts % (Manual) Lymphocytes % (Manual) Seg Neutrophils # Seg Neutrophils # Man Lymphocytes # (Manual) PT INR ABG pH ABG pO2 ABG HCO3 ABG O2 Saturation ABG Base Excess ABG Hemoglobin Oxyhemoglobin Sodium Potassium Chloride Carbon Dioxide BUN Creatinine Glucose POC Glucose 123 H 109 H Calcium Phosphorus AST ALT Ammonia Albumin 03/08/22 03/08/22 03/08/22 04:34 11:29 16:34 WBC RBC Hgb Hct MCV MCH MCHC RDW Lymph % (Auto) [place] % (Auto) Lymph # (Auto) [place] # (Auto) Seg Neutrophils % Seg Neuts % (Manual) Lymphocytes % (Manual) Seg Neutrophils # Seg Neutrophils # Man Lymphocytes # (Manual) PT INR ABG pH ABG pO2 ABG HCO3 ABG O2 Saturation ABG Base Excess ABG Hemoglobin Oxyhemoglobin Sodium Potassium Chloride Carbon Dioxide 33 H BUN Creatinine 0.5 L Glucose 109 H POC Glucose 117 H 109 H Calcium 7.6 L Phosphorus AST ALT Ammonia Albumin 03/08/22 03/09/22 03/10/22 23:56 11:15 03:57 WBC RBC 2.99 L Hgb 9.9 L Hct 30.3 L MCV 102 H MCH 33 H MCHC RDW 16.8 H Lymph % (Auto) 13.3 L [place] % (Auto) 12.5 H Lymph # (Auto) [place] # (Auto) 1.3 H Seg Neutrophils % 72.4 H Seg Neuts % (Manual) Lymphocytes % (Manual) Seg Neutrophils # Seg Neutrophils # Man Lymphocytes # (Manual) PT INR ABG pH ABG pO2 ABG HCO3 ABG O2 Saturation ABG Base Excess ABG Hemoglobin Oxyhemoglobin Sodium Potassium Chloride Carbon Dioxide BUN Creatinine Glucose POC Glucose 106 H 110 H Calcium Phosphorus AST ALT Ammonia Albumin 03/10/22 03/10/22 03/10/22 03:57 04:50 16:04 WBC RBC Hgb Hct MCV MCH MCHC RDW Lymph % (Auto) [place] % (Auto) Lymph # (Auto) [place] # (Auto) Seg Neutrophils % Seg Neuts % (Manual) Lymphocytes % (Manual) Seg Neutrophils # Seg Neutrophils # Man Lymphocytes # (Manual) PT INR ABG pH 7.465 H ABG pO2 ABG HCO3 31.9 H ABG O2 Saturation ABG Base Excess 7.3 H ABG Hemoglobin 11.0 L Oxyhemoglobin Sodium Potassium 3.4 L Chloride Carbon Dioxide BUN Creatinine 0.6 L Glucose POC Glucose 115 H Calcium 8.1 L Phosphorus AST ALT Ammonia Albumin 1.9 L 03/11/22 03/11/22 03/11/22 04:02 04:02 04:02 WBC 12.0 H RBC 2.81 L Hgb 9.2 L Hct 29.1 L MCV 103 H MCH 33 H MCHC RDW 17.5 H Lymph % (Auto) [place] % (Auto) Lymph # (Auto) [place] # (Auto) Seg Neutrophils % Seg Neuts % (Manual) Lymphocytes % (Manual) Seg Neutrophils # Seg Neutrophils # Man Lymphocytes # (Manual) PT 16.2 H INR 1.16 H ABG pH ABG pO2 ABG HCO3 ABG O2 Saturation ABG Base Excess ABG Hemoglobin Oxyhemoglobin Sodium Potassium Chloride Carbon Dioxide BUN Creatinine 0.5 L Glucose 104 H POC Glucose Calcium 7.9 L Phosphorus AST ALT Ammonia Albumin 03/11/22 03/11/22 03/11/22 05:10 11:07 16:32 WBC RBC Hgb Hct MCV MCH MCHC RDW Lymph % (Auto) [place] % (Auto) Lymph # (Auto) [place] # (Auto) Seg Neutrophils % Seg Neuts % (Manual) Lymphocytes % (Manual) Seg Neutrophils # Seg Neutrophils # Man Lymphocytes # (Manual) PT INR ABG pH 7.476 H ABG pO2 ABG HCO3 29.7 H ABG O2 Saturation ABG Base Excess 5.7 H ABG Hemoglobin 9.1 L Oxyhemoglobin Sodium Potassium Chloride Carbon Dioxide BUN Creatinine Glucose POC Glucose 108 H 121 H Calcium Phosphorus AST ALT Ammonia Albumin 03/12/22 03/13/22 03/13/22 05:51 06:08 12:02 WBC RBC 2.73 L Hgb 9.0 L Hct 27.5 L MCV 101 H MCH 33 H MCHC RDW 17.2 H Lymph % (Auto) [place] % (Auto) Lymph # (Auto) [place] # (Auto) Seg Neutrophils % Seg Neuts % (Manual) Lymphocytes % (Manual) Seg Neutrophils # Seg Neutrophils # Man Lymphocytes # (Manual) PT INR ABG pH ABG pO2 ABG HCO3 ABG O2 Saturation ABG Base Excess ABG Hemoglobin Oxyhemoglobin Sodium Potassium Chloride Carbon Dioxide BUN Creatinine Glucose POC Glucose 116 H 111 H Calcium Phosphorus AST ALT Ammonia Albumin 03/13/22 03/13/22 03/14/22 12:48 18:17 03:58 WBC RBC 2.97 L Hgb 9.7 L Hct 30.0 L MCV 101 H MCH 33 H MCHC RDW 16.7 H Lymph % (Auto) [place] % (Auto) Lymph # (Auto) [place] # (Auto) Seg Neutrophils % Seg Neuts % (Manual) Lymphocytes % (Manual) Seg Neutrophils # Seg Neutrophils # Man Lymphocytes # (Manual) PT INR ABG pH ABG pO2 ABG HCO3 ABG O2 Saturation ABG Base Excess ABG Hemoglobin Oxyhemoglobin Sodium Potassium Chloride Carbon Dioxide BUN Creatinine Glucose POC Glucose 125 H 114 H Calcium Phosphorus AST ALT Ammonia Albumin 03/14/22 03/14/22 03/14/22 03:58 13:01 16:41 WBC RBC Hgb Hct MCV MCH MCHC RDW Lymph % (Auto) [place] % (Auto) Lymph # (Auto) [place] # (Auto) Seg Neutrophils % Seg Neuts % (Manual) Lymphocytes % (Manual) Seg Neutrophils # Seg Neutrophils # Man Lymphocytes # (Manual) PT INR ABG pH ABG pO2 ABG HCO3 ABG O2 Saturation ABG Base Excess ABG Hemoglobin Oxyhemoglobin Sodium Potassium Chloride Carbon Dioxide BUN Creatinine 0.6 L Glucose POC Glucose 118 H 109 H Calcium 8.2 L Phosphorus AST ALT Ammonia Albumin 03/16/22 03/16/22 03/17/22 05:28 05:28 23:19 WBC RBC 2.81 L Hgb 9.1 L Hct 27.8 L MCV 99 H MCH MCHC RDW 17.0 H Lymph % (Auto) [place] % (Auto) Lymph # (Auto) [place] # (Auto) Seg Neutrophils % Seg Neuts % (Manual) Lymphocytes % (Manual) Seg Neutrophils # Seg Neutrophils # Man Lymphocytes # (Manual) PT INR ABG pH ABG pO2 ABG HCO3 ABG O2 Saturation ABG Base Excess ABG Hemoglobin Oxyhemoglobin Sodium Potassium Chloride Carbon Dioxide BUN Creatinine 0.5 L Glucose POC Glucose 113 H Calcium 8.2 L Phosphorus AST ALT Ammonia Albumin 03/20/22 03/20/22 03/20/22 04:09 04:09 17:22 WBC RBC 2.90 L Hgb 9.6 L Hct 28.9 L MCV 100 H MCH 33 H MCHC RDW 17.4 H Lymph % (Auto) [place] % (Auto) Lymph # (Auto) [place] # (Auto) Seg Neutrophils % Seg Neuts % (Manual) Lymphocytes % (Manual) Seg Neutrophils # Seg Neutrophils # Man Lymphocytes # (Manual) PT INR ABG pH ABG pO2 ABG HCO3 ABG O2 Saturation ABG Base Excess ABG Hemoglobin Oxyhemoglobin Sodium Potassium Chloride Carbon Dioxide BUN Creatinine 0.6 L Glucose POC Glucose 110 H Calcium 8.2 L Phosphorus AST ALT Ammonia Albumin 03/21/22 03/21/22 03/22/22 18:24 23:09 12:18 WBC RBC Hgb Hct MCV MCH MCHC RDW Lymph % (Auto) [place] % (Auto) Lymph # (Auto) [place] # (Auto) Seg Neutrophils % Seg Neuts % (Manual) Lymphocytes % (Manual) Seg Neutrophils # Seg Neutrophils # Man Lymphocytes # (Manual) PT INR ABG pH ABG pO2 ABG HCO3 ABG O2 Saturation ABG Base Excess ABG Hemoglobin Oxyhemoglobin Sodium Potassium Chloride Carbon Dioxide BUN Creatinine Glucose POC Glucose 110 H 107 H 106 H Calcium Phosphorus AST ALT Ammonia Albumin 03/22/22 03/23/22 03/23/22 14:25 00:21 11:31 WBC RBC Hgb Hct MCV MCH MCHC RDW Lymph % (Auto) [place] % (Auto) Lymph # (Auto) [place] # (Auto) Seg Neutrophils % Seg Neuts % (Manual) Lymphocytes % (Manual) Seg Neutrophils # Seg Neutrophils # Man Lymphocytes # (Manual) PT INR ABG pH ABG pO2 150.5 H ABG HCO3 32.4 H ABG O2 Saturation ABG Base Excess 6.2 H ABG Hemoglobin 11.4 L Oxyhemoglobin Sodium Potassium Chloride Carbon Dioxide BUN Creatinine Glucose POC Glucose 107 H 110 H Calcium Phosphorus AST ALT Ammonia Albumin 03/24/22 03/24/22 03/24/22 03:47 03:47 05:56 WBC RBC 3.18 L Hgb 10.1 L Hct 31.1 L MCV 98 H MCH MCHC RDW 17.4 H Lymph % (Auto) [place] % (Auto) Lymph # (Auto) [place] # (Auto) Seg Neutrophils % Seg Neuts % (Manual) Lymphocytes % (Manual) Seg Neutrophils # Seg Neutrophils # Man Lymphocytes # (Manual) PT INR ABG pH ABG pO2 ABG HCO3 ABG O2 Saturation ABG Base Excess ABG Hemoglobin Oxyhemoglobin Sodium Potassium Chloride Carbon Dioxide BUN Creatinine 0.5 L Glucose POC Glucose 107 H Calcium Phosphorus AST ALT Ammonia Albumin 03/24/22 11:15 WBC RBC Hgb Hct MCV MCH MCHC RDW Lymph % (Auto) [place] % (Auto) Lymph # (Auto) [place] # (Auto) Seg Neutrophils % Seg Neuts % (Manual) Lymphocytes % (Manual) Seg Neutrophils # Seg Neutrophils # Man Lymphocytes # (Manual) PT INR ABG pH ABG pO2 ABG HCO3 ABG O2 Saturation ABG Base Excess ABG Hemoglobin Oxyhemoglobin Sodium Potassium Chloride Carbon Dioxide BUN Creatinine Glucose POC Glucose 126 H Calcium Phosphorus AST ALT Ammonia Albumin
[2022-03-24] MEDS: PRAVASTATIN 40 MG TAB FEEDTUBE SCH (21:05)
[2022-03-25] MEDS: ALBUTEROL 2.5 MG/3 ML NEBU IH SCH ×4 (01:32→19:20)
[2022-03-25] MEDS: HEPARIN 5,000 UNIT/1 ML VIAL SUB-Q SCH ×3 (05:18→22:18)
[2022-03-25] MEDS: LEVOTHYROXINE 25 MCG TAB FEEDTUBE SCH (05:18)
--- NOTE | 2022-03-25 10:22 | Progress Note ---
Assessment and Plan 61 y/o male with abnormal CT of chest. 03/25/22: Day 29 of intubation. RT to try PSV this am, hesistant given low sats but improved with suctioning. Still no word from the hospital in regards to guardianship. I do not feel comfortable with attempting extubation again on this patient given his quick failure and difficult re-intubation. 03/24/22: Day 28 of intubation. reviewed my partners notes from the weekend. Glad patient is tolerating PSV however do not see conventional extubation in the near future given patient's mental status and how fast he failed extubation (within an hour) on his first attempt. Patient was also a difficult re- intubation. Follow up with CM and hospital tomorrow. Continue supportive measures. 03/21/22: Day 25 of intubation. No new updates from the hospital about guardianship. Wound care saw on yesterday. Continue daily PSV trials as tolerated. Guarded prognosis. 03/20/22: Day 24 of intubation. No new recommendations. Still awaiting hospital update in regards to guardianship so that decisions can be made. Continue supportive measures. Wound care to see today. 03/19/22: Day 23 of intubation. Prognosis is still guarded. Will discuss with RT about attempts at daily PSV trials. Per notes, Wound care to see , wound was present on admission. 03/18/22: Day 22 of intubation. Prognosis remains guarded. Not able to obtain trach and peg with consent. Continue daily PSV trials as tolerated. 03/17/22: Day 21 of intubation. Still awaiting some form of decision maker for trach and peg placement. Guarded prognosis. 03/16/22: Day 20 of intubation. BP stable. Continue midodrine. Awaiting emergency guardianship from Court to obtain consent for trach and peg. Guarded prognosis. 03/15/22: Day 19 of intubation. BP now is marginal more regularly. Will give an additional liter bolus of LR now. May need to increase Midodrine back to 5. Needs trach in order to be safely weaned from ventilator. Will need peg tube placement in addition to trach. Prognosis remains guarded. Continue PSV trials as tolerated. 03/14/22: Day 18 of intubation. Vitals stable and mental status is unchanged. Still in need of tracheostomy as well as peg tube placement. No guardian a ppointed yet. 03/13/22: Day 17 of intubation. Agree with bolus and restarting of midodrine. was stopped previously secondary to bradycardia. If patient spikes temp, will culture blood and urine and repeat CXR. Continue daily PSV trials to assess ability for vent liberation. Continues to need trach however no family/guardian to provide consent. Guarded prognosis. 03/12/22: Day 16 of intubation. Following up with hospital in regards to guardian. Continue supportive measures. Guarded prognosis. 03/11/22: hospital now attempting to find emergency guardian to have consent for trach as ethics committee cannot comment on this matter so unable to help. Until then will remain intubated orally. Failed PSV yesterday, will continue to attempt on daily basis. Unfortunate situation. Guarded prognosis. 03/10/22: Today nuñez day 14 of intubation. Given patient's mental state and increased risk of aspiration, the likelihood of conventional extubation with success is very very slim and the patient has already failed this in an extremely short period of time (less than 1 hour). I suspect that he will fail again if tried and could create more difficult reintubation as he was a diffi cult reintubation on his failed extubation attempt. To prevent further decline and potential complications of prolonged mechanical ventilation, will discuss with ethics and the hospital to use 2 physician consent to obtain trach and peg for this patient with hopes of liberating him from the mechanical ventilator. he has very minimal vent requirements but as been stated several times above, he continues to aspirate and failed conventional extubation almost immediately. Will consult surgery today. Dr. Mancia is prepared to sign consent as well as myself. Hopeful surgery will be on board with this. Continue supportive care for now. Attempt daily PSV trials. 03/07/22: Daily PSV trials as tolerated. Still no one to step up as adult friend. patient has now been intubated since 02/24/22 and is approaching the time period in which prolonged mechanical ventilation could lead to significant complications that could be detrimental to health (infection, stenosis, malacia etc). Will discuss again with ethics but in regards to medical necessity, may need to consider two physician consent if no one is able to claim responsibility for this patient. He is a full code and we must work in his best interest to prevent further harm. Continue supportive measures but he is not a candidate for conventional extubation given his mental state, despite being on minimal support. He has already failed this before. 03/06/22: PSV trials daily. Will discuss with RT. Spoke with ethics. Plan in place and awaiting on news from [facility] and state. Continue supportive measures. Patient has been intubated since 02/24/22 and is approaching the 2 week shadi of intubation will need to make decisions soon to avoid unnecessary complications related to prolonged intubation. 03/05/22: Will follow up with ethics today. Awaiting some guidance about consent for trach and peg. This is a medical necessity to liberate patient from mechanical ventilation. Continue supportive measures. Ok with daily PSV trials 03/04/22: Follow up with ethics later this afternoon. Spoke with RT and patient does have cuff leak, will stop steroids. Stopping midodrine as BP is stable and bradycardia likely from this. 03/03/22: Await ethics eval. CM has spoken with state as well. Daily cuff leaks. Will start to wean steroids tomorrow. Midodrine can cause bradycardia. If continues or worsens will stop. Guarded prognosis. 03/02/22: Continue supportive measures. Await ethics consult before surgery consult for trach and peg. no further need for fluid boluses. Will continue stress dose steroids but have daily air leak checks by RT. Still will need trach, will not attempt extubation again. Guarded prognosis. 03/01/22: Patient is having increased urine output. This could be the cause of new onset hypotension. Will bolus 2 more liters of LR now and reassess. If this continues may need to work up for SIADH including repeat head CT. Follow up ethics review of case. Will need trach for ventilator liberation. Overall prognosis remains guarded. 02/28/22: Will obtain CT neck, noncontrast to look for airway edema or other possible etiologies for failure. Needs ethics consult as given patient's mental state, inability to clear secretions appropriately, will need trach now that he has failed extubation. However he has no family and no POA so no one to give consent. Continue supportive measures. Guarded prognosis. 02/27/22: Continue improvement of oxygenation. Will drop PEEP down today with goal of being at 6 by in the morning. Will repeat CT scan to confirm improvement as no endobronchial lesion was seen, but also to make sure no parenchymal mass. There was no evidence of extrinsic compression during bronch. Likely extubation tomorrow post CT. 02/26/22: Repeat CXR now. Wean Vent as tolerated. Hopeful extubation soon. Mucous removed. NO ENDOBRONCHIAL LESION/MASS 02/25/22: Bronch tentatively planned for tomorrow with therapeutic scope. A waiting GI lab to give a time. NPO after midnight. Continue high PEEP 02/24/22: WIll attempt to bronch tomorrow morning. NPO after midnight. Just received word from GI lab they are not able to do bronch tomorrow. Cancel NPO order. Continue to feed patient. Repeat ABG in AM along with CXR. 02/21/22: No new pulm recs for today. Please obtain repeat CXR likely on Thursday. If patient happens to get worse, likely not a candidate for bipap given his weak cough and mental state and inability to communicate. If worsens and requires intubation, will bronch then under emergent circumstances if no POA or family is able to be located. Continue CPT. Will discuss with RT about NT suctioning. 02/20/22: Saw speech while on the floor. Would like patient to be NPO now. Discussed with nurse on floor and with IMS. Same recs pulm way as yesterday. Would benefit from bronch if able to get consent as this is not emergent. Continue CPT and q shift NT suctioning. Reviewed admission in the past and of note, patient was recently admitted last month and had a CXR done on the 29 of January that was normal. Given this patient's medical history and the history that I obtained from the nursing staff that at the long term he was eating solid foods, I suspect that this is aspiration, possibly of a foreign body (most likely food) with atelectasis of the right lower lobe. It is highly unlikely that a mass evolved in size in less than a months time and patient, besides age, has no real risk factors for lung carcinoma. Discussed with the nurse and unfortunately there is no identifiable person that is able to give consent. Bronchoscopy is needed in the case to evaluate to see if lung mass is there vs foreign body, but at this time not able to do. In the meanwhile will recommend the following. 1. Will order CPT with neb therapy 3x daily 2. Suggest maybe NT suctioning q shift. May use nasal trumpet, however do not leave this device in the patient 3. Aspiration precautions 4. Consider speech eval to assess swallowing. Will continue to follow. CCT 31 minutes. Subjective Date of service: 03/25/22 Principal diagnosis: f/u Acute respiratory failure Interval history: No acute events. Low sats this am that improved with suctioning. Objective Vital Signs - 12hr 03/24/22 03/24/22 03/24/22 23:00 23:13 23:18 Temperature Pulse Rate 84 85 86 Pulse Rate [ Anterior Bilateral Throughout] Pulse Rate [ From Monitor] Respiratory 15 15 Rate Respiratory Rate [Anterior Bilateral Throughout] Blood Pressure 118/69 118/69 O2 Sat by Pulse 97 96 Oximetry 03/24/22 03/24/22 03/25/22 23:19 23:23 00:00 Temperature 98.8 F Pulse Rate 83 83 Pulse Rate [ Anterior Bilateral Throughout] Pulse Rate [ From Monitor] Respiratory 16 Rate Respiratory Rate [Anterior Bilateral Throughout] Blood Pressure 118/69 122/68 O2 Sat by Pulse 95 97 97 Oximetry 03/25/22 03/25/22 03/25/22 01:01 01:32 02:00 Temperature Pulse Rate 87 87 Pulse Rate [ 87 Anterior Bilateral Throughout] Pulse Rate [ From Monitor] Respiratory 18 17 Rate Respiratory 19 Rate [Anterior Bilateral Throughout] Blood Pressure 115/64 113/72 O2 Sat by Pulse 93 95 Oximetry 03/25/22 03/25/22 03/25/22 03:00 03:29 04:00 Temperature 98.3 F Pulse Rate 90 88 Pulse Rate [ Anterior Bilateral Throughout] Pulse Rate [ From Monitor] Respiratory 18 13 Rate Respiratory Rate [Anterior Bilateral Throughout] Blood Pressure 116/77 116/77 114/73 O2 Sat by Pulse 94 97 96 Oximetry 03/25/22 03/25/22 03/25/22 04:42 05:00 06:00 Temperature Pulse Rate 83 83 96 H Pulse Rate [ Anterior Bilateral Throughout] Pulse Rate [ From Monitor] Respiratory 11 L 19 Rate Respiratory Rate [Anterior Bilateral Throughout] Blood Pressure 107/56 107/56 O2 Sat by Pulse 96 94 Oximetry 03/25/22 03/25/22 03/25/22 07:00 07:09 08:00 Temperature 98.6 F Pulse Rate 93 H 96 H Pulse Rate [ Anterior Bilateral Throughout] Pulse Rate [ From Monitor] Respiratory 18 19 Rate Respiratory Rate [Anterior Bilateral Throughout] Blood Pressure 107/77 116/71 O2 Sat by Pulse 94 90 Oximetry 03/25/22 03/25/22 03/25/22 08:05 08:12 08:36 Temperature Pulse Rate 93 H 98 H Pulse Rate [ Anterior Bilateral Throughout] Pulse Rate [ 93 H From Monitor] Respiratory Rate Respiratory Rate [Anterior Bilateral Throughout] Blood Pressure 116/71 O2 Sat by Pulse 95 97 Oximetry 03/25/22 03/25/22 03/25/22 08:39 09:00 10:13 Temperature Pulse Rate 101 H 100 H Pulse Rate [ 101 H Anterior Bilateral Throughout] Pulse Rate [ From Monitor] Respiratory 21 18 Rate Respiratory 22 Rate [Anterior Bilateral Throughout] Blood Pressure 112/67 123/66 O2 Sat by Pulse 96 91 Oximetry Constitutional: alert, other (critically ill on ventilator) Eyes: non-icteric ENT: oropharynx moist Neck: supple Effort: normal Ascultation: Bilateral: diminished breath sounds, rhonchi Cardiovascular: regular rate and rhythm (no mrg) Gastrointestinal: normoactive bowel sounds, soft, non-tender (on o2 vest in place), non-distended Integumentary: normal Extremities: no cyanosis, no edema Neurologic: other (awake) Psychiatric: other (unable to assess) CBC and BMP: 03/24/22 03:47 03/24/22 03:47 ABG, PT/INR, D-dimer: ABG ABG pH 7.392 pH Units (7.350-7.450) 03/22/22 14:25 ABG pCO2 54.4 mm Hg 03/22/22 14:25 ABG pO2 150.5 mm Hg (80.0-90.0) H 03/22/22 14:25 ABG O2 Saturation 98.8 % (95.0-99.0) 03/22/22 14:25 PT/INR, D-dimer PT 16.2 Sec. (12.2-14.9) H 03/11/22 04:02 INR 1.16 (0.87-1.13) H 03/11/22 04:02 Abnormal lab findings: Abnormal Labs 02/18/22 02/18/22 02/18/22 19:34 21:02 21:02 WBC RBC Hgb Hct MCV 101 H MCH 34 H MCHC RDW 16.1 H Lymph % (Auto) [place] % (Auto) 12.4 H Lymph # (Auto) [place] # (Auto) 1.2 H Seg Neutrophils % 73.0 H Seg Neuts % (Manual) Lymphocytes % (Manual) Seg Neutrophils # Seg Neutrophils # Man Lymphocytes # (Manual) PT 16.9 H INR 1.20 H ABG pH ABG pO2 ABG HCO3 ABG O2 Saturation ABG Base Excess ABG Hemoglobin Oxyhemoglobin Sodium Potassium Chloride Carbon Dioxide BUN Creatinine Glucose POC Glucose 116 H Calcium Phosphorus AST ALT Ammonia Albumin 02/18/22 02/18/22 02/18/22 21:02 22:45 23:22 WBC RBC Hgb Hct MCV MCH MCHC RDW Lymph % (Auto) [place] % (Auto) Lymph # (Auto) [place] # (Auto) Seg Neutrophils % Seg Neuts % (Manual) Lymphocytes % (Manual) Seg Neutrophils # Seg Neutrophils # Man Lymphocytes # (Manual) PT INR ABG pH ABG pO2 55.6 L ABG HCO3 28.4 H ABG O2 Saturation 91.5 L ABG Base Excess 3.8 H ABG Hemoglobin 13.2 L Oxyhemoglobin 89.6 L Sodium Potassium 5.1 H Chloride Carbon Dioxide BUN Creatinine Glucose 102 H POC Glucose Calcium Phosphorus AST 48 H ALT 64 H Ammonia 14.0 L Albumin 2.7 L 02/20/22 02/20/22 02/23/22 04:59 04:59 06:29 WBC 11.4 H RBC Hgb Hct MCV 103 H MCH 33 H MCHC RDW 16.5 H Lymph % (Auto) 5.5 L [place] % (Auto) 12.1 H Lymph # (Auto) 0.6 L [place] # (Auto) 1.4 H Seg Neutrophils % 81.4 H Seg Neuts % (Manual) Lymphocytes % (Manual) Seg Neutrophils # 9.2 H Seg Neutrophils # Man Lymphocytes # (Manual) PT INR ABG pH ABG pO2 ABG HCO3 ABG O2 Saturation ABG Base Excess ABG Hemoglobin Oxyhemoglobin Sodium Potassium Chloride Carbon Dioxide BUN Creatinine Glucose POC Glucose 113 H Calcium 8.2 L Phosphorus AST ALT Ammonia Albumin 02/23/22 02/23/22 02/24/22 11:22 16:10 00:02 WBC RBC Hgb Hct MCV MCH MCHC RDW Lymph % (Auto) [place] % (Auto) Lymph # (Auto) [place] # (Auto) Seg Neutrophils % Seg Neuts % (Manual) Lymphocytes % (Manual) Seg Neutrophils # Seg Neutrophils # Man Lymphocytes # (Manual) PT INR ABG pH ABG pO2 ABG HCO3 ABG O2 Saturation ABG Base Excess ABG Hemoglobin Oxyhemoglobin Sodium Potassium Chloride Carbon Dioxide BUN Creatinine Glucose POC Glucose 108 H 115 H 109 H Calcium Phosphorus AST ALT Ammonia Albumin 02/24/22 02/24/22 02/24/22 11:05 11:05 13:20 WBC RBC 3.55 L Hgb Hct MCV 100 H MCH 34 H MCHC RDW 15.6 H Lymph % (Auto) [place] % (Auto) Lymph # (Auto) [place] # (Auto) Seg Neutrophils % Seg Neuts % (Manual) Lymphocytes % (Manual) Seg Neutrophils # Seg Neutrophils # Man Lymphocytes # (Manual) PT INR ABG pH ABG pO2 ABG HCO3 ABG O2 Saturation ABG Base Excess ABG Hemoglobin Oxyhemoglobin Sodium 146 H Potassium 3.2 L D Chloride 108.4 H Carbon Dioxide BUN Creatinine 0.5 L Glucose POC Glucose 111 H Calcium 7.9 L Phosphorus 2.20 L AST ALT Ammonia Albumin 02/24/22 02/24/22 02/24/22 16:30 17:03 20:25 WBC RBC Hgb Hct MCV MCH MCHC RDW Lymph % (Auto) [place] % (Auto) Lymph # (Auto) [place] # (Auto) Seg Neutrophils % Seg Neuts % (Manual) Lymphocytes % (Manual) Seg Neutrophils # Seg Neutrophils # Man Lymphocytes # (Manual) PT INR ABG pH 7.319 L ABG pO2 65.3 L ABG HCO3 31.3 H ABG O2 Saturation 92.2 L ABG Base Excess 3.8 H ABG Hemoglobin 12.0 L Oxyhemoglobin 90.3 L Sodium Potassium Chloride 107.9 H Carbon Dioxide BUN 8 L Creatinine 0.4 L Glucose POC Glucose 108 H Calcium 7.6 L Phosphorus 4.60 H D AST ALT Ammonia Albumin 02/25/22 02/25/22 02/25/22 04:12 04:12 05:05 WBC RBC 3.07 L Hgb 10.2 L Hct 31.5 L MCV 103 H MCH 33 H MCHC RDW 15.6 H Lymph % (Auto) [place] % (Auto) Lymph # (Auto) [place] # (Auto) Seg Neutrophils % Seg Neuts % (Manual) Lymphocytes % (Manual) Seg Neutrophils # Seg Neutrophils # Man Lymphocytes # (Manual) PT INR ABG pH ABG pO2 ABG HCO3 32.5 H ABG O2 Saturation ABG Base Excess 5.6 H ABG Hemoglobin 10.8 L Oxyhemoglobin 94.8 L Sodium Potassium 3.5 L Chloride 107.7 H Carbon Dioxide BUN Creatinine 0.5 L Glucose POC Glucose Calcium 7.0 L Phosphorus AST ALT Ammonia Albumin 02/25/22 02/25/22 02/26/22 12:05 18:33 00:07 WBC RBC Hgb Hct MCV MCH MCHC RDW Lymph % (Auto) [place] % (Auto) Lymph # (Auto) [place] # (Auto) Seg Neutrophils % Seg Neuts % (Manual) Lymphocytes % (Manual) Seg Neutrophils # Seg Neutrophils # Man Lymphocytes # (Manual) PT INR ABG pH ABG pO2 ABG HCO3 ABG O2 Saturation ABG Base Excess ABG Hemoglobin Oxyhemoglobin Sodium Potassium Chloride Carbon Dioxide BUN Creatinine Glucose POC Glucose 127 H 125 H 114 H Calcium Phosphorus AST ALT Ammonia Albumin 02/26/22 02/26/22 02/26/22 03:30 04:42 11:34 WBC RBC Hgb Hct MCV MCH MCHC RDW Lymph % (Auto) [place] % (Auto) Lymph # (Auto) [place] # (Auto) Seg Neutrophils % Seg Neuts % (Manual) Lymphocytes % (Manual) Seg Neutrophils # Seg Neutrophils # Man Lymphocytes # (Manual) PT INR ABG pH ABG pO2 143.2 H ABG HCO3 33.2 H ABG O2 Saturation ABG Base Excess 6.5 H ABG Hemoglobin 9.4 L Oxyhemoglobin Sodium Potassium Chloride Carbon Dioxide 32 H BUN Creatinine 0.7 L Glucose POC Glucose 114 H Calcium 8.0 L Phosphorus AST ALT Ammonia Albumin 02/26/22 02/26/22 02/27/22 18:17 23:37 04:19 WBC 13.7 H RBC 2.78 L Hgb 9.3 L Hct 28.5 L MCV 103 H MCH 33 H MCHC RDW 16.3 H Lymph % (Auto) [place] % (Auto) Lymph # (Auto) [place] # (Auto) Seg Neutrophils % Seg Neuts % (Manual) Lymphocytes % (Manual) Seg Neutrophils # Seg Neutrophils # Man Lymphocytes # (Manual) PT INR ABG pH ABG pO2 ABG HCO3 ABG O2 Saturation ABG Base Excess ABG Hemoglobin Oxyhemoglobin Sodium Potassium Chloride Carbon Dioxide BUN Creatinine Glucose POC Glucose 111 H 117 H Calcium Phosphorus AST ALT Ammonia Albumin 02/27/22 02/27/22 02/27/22 04:19 04:35 05:27 WBC RBC Hgb Hct MCV MCH MCHC RDW Lymph % (Auto) [place] % (Auto) Lymph # (Auto) [place] # (Auto) Seg Neutrophils % Seg Neuts % (Manual) Lymphocytes % (Manual) Seg Neutrophils # Seg Neutrophils # Man Lymphocytes # (Manual) PT INR ABG pH ABG pO2 96.3 H ABG HCO3 34.9 H ABG O2 Saturation ABG Base Excess 8.1 H ABG Hemoglobin Oxyhemoglobin Sodium Potassium Chloride Carbon Dioxide 31 H BUN Creatinine 0.6 L Glucose 107 H POC Glucose 133 H Calcium 7.8 L Phosphorus AST ALT Ammonia Albumin 02/27/22 02/27/22 02/28/22 11:15 23:35 03:38 WBC 13.3 H RBC 3.05 L Hgb 10.2 L Hct 30.7 L MCV 101 H MCH 33 H MCHC RDW 16.1 H Lymph % (Auto) [place] % (Auto) Lymph # (Auto) [place] # (Auto) Seg Neutrophils % Seg Neuts % (Manual) Lymphocytes % (Manual) Seg Neutrophils # Seg Neutrophils # Man Lymphocytes # (Manual) PT INR ABG pH ABG pO2 ABG HCO3 ABG O2 Saturation ABG Base Excess ABG Hemoglobin Oxyhemoglobin Sodium Potassium Chloride Carbon Dioxide BUN Creatinine Glucose POC Glucose 129 H 122 H Calcium Phosphorus AST ALT Ammonia Albumin 02/28/22 02/28/22 02/28/22 04:50 05:30 09:30 WBC RBC Hgb Hct MCV MCH MCHC RDW Lymph % (Auto) [place] % (Auto) Lymph # (Auto) [place] # (Auto) Seg Neutrophils % Seg Neuts % (Manual) Lymphocytes % (Manual) Seg Neutrophils # Seg Neutrophils # Man Lymphocytes # (Manual) PT INR ABG pH 7.451 H 7.488 H ABG pO2 77.0 L ABG HCO3 37.1 H 34.6 H ABG O2 Saturation ABG Base Excess 11.5 H 10.1 H ABG Hemoglobin 10.1 L 10.0 L Oxyhemoglobin Sodium Potassium Chloride Carbon Dioxide BUN Creatinine Glucose POC Glucose 121 H Calcium Phosphorus AST ALT Ammonia Albumin 02/28/22 02/28/22 03/01/22 11:36 23:07 04:27 WBC 12.5 H RBC 2.85 L Hgb 9.5 L Hct 28.6 L MCV 101 H MCH 33 H MCHC RDW 15.7 H Lymph % (Auto) [place] % (Auto) Lymph # (Auto) [place] # (Auto) Seg Neutrophils % Seg Neuts % (Manual) Lymphocytes % (Manual) Seg Neutrophils # Seg Neutrophils # Man Lymphocytes # (Manual) PT INR ABG pH ABG pO2 ABG HCO3 ABG O2 Saturation ABG Base Excess ABG Hemoglobin Oxyhemoglobin Sodium Potassium Chloride Carbon Dioxide BUN Creatinine Glucose POC Glucose 112 H 107 H Calcium Phosphorus AST ALT Ammonia Albumin 03/01/22 03/01/22 03/01/22 04:27 05:05 11:29 WBC RBC Hgb Hct MCV MCH MCHC RDW Lymph % (Auto) [place] % (Auto) Lymph # (Auto) [place] # (Auto) Seg Neutrophils % Seg Neuts % (Manual) Lymphocytes % (Manual) Seg Neutrophils # Seg Neutrophils # Man Lymphocytes # (Manual) PT INR ABG pH ABG pO2 ABG HCO3 ABG O2 Saturation ABG Base Excess ABG Hemoglobin Oxyhemoglobin Sodium 147 H D Potassium Chloride Carbon Dioxide 34 H BUN Creatinine 0.6 L Glucose 128 H POC Glucose 119 H 121 H Calcium 7.9 L Phosphorus AST ALT Ammonia Albumin 03/01/22 03/01/22 03/02/22 16:15 23:57 05:18 WBC RBC Hgb Hct MCV MCH MCHC RDW Lymph % (Auto) [place] % (Auto) Lymph # (Auto) [place] # (Auto) Seg Neutrophils % Seg Neuts % (Manual) Lymphocytes % (Manual) Seg Neutrophils # Seg Neutrophils # Man Lymphocytes # (Manual) PT INR ABG pH ABG pO2 110.5 H ABG HCO3 33.0 H ABG O2 Saturation ABG Base Excess 7.4 H ABG Hemoglobin 8.6 L Oxyhemoglobin Sodium Potassium Chloride Carbon Dioxide BUN Creatinine Glucose POC Glucose 134 H 140 H Calcium Phosphorus AST ALT Ammonia Albumin 03/02/22 03/02/22 03/02/22 05:53 09:04 09:04 WBC 15.0 H RBC 3.00 L Hgb 9.7 L Hct 30.7 L MCV 102 H MCH MCHC RDW 16.6 H Lymph % (Auto) [place] % (Auto) Lymph # (Auto) [place] # (Auto) Seg Neutrophils % Seg Neuts % (Manual) Lymphocytes % (Manual) Seg Neutrophils # Seg Neutrophils # Man Lymphocytes # (Manual) PT INR ABG pH ABG pO2 ABG HCO3 ABG O2 Saturation ABG Base Excess ABG Hemoglobin Oxyhemoglobin Sodium Potassium Chloride Carbon Dioxide 31 H BUN Creatinine 0.6 L Glucose 157 H POC Glucose 158 H Calcium 7.9 L Phosphorus AST ALT Ammonia Albumin 03/02/22 03/02/22 03/02/22 11:36 16:25 23:17 WBC RBC Hgb Hct MCV MCH MCHC RDW Lymph % (Auto) [place] % (Auto) Lymph # (Auto) [place] # (Auto) Seg Neutrophils % Seg Neuts % (Manual) Lymphocytes % (Manual) Seg Neutrophils # Seg Neutrophils # Man Lymphocytes # (Manual) PT INR ABG pH ABG pO2 ABG HCO3 ABG O2 Saturation ABG Base Excess ABG Hemoglobin Oxyhemoglobin Sodium Potassium Chloride Carbon Dioxide BUN Creatinine Glucose POC Glucose 160 H 132 H 157 H Calcium Phosphorus AST ALT Ammonia Albumin 03/03/22 03/03/22 03/03/22 03:54 03:54 05:27 WBC 19.5 H RBC 2.79 L Hgb 9.0 L Hct 28.6 L MCV 102 H MCH MCHC RDW 16.2 H Lymph % (Auto) [place] % (Auto) Lymph # (Auto) [place] # (Auto) Seg Neutrophils % Seg Neuts % (Manual) 95.0 H Lymphocytes % (Manual) 3.0 L Seg Neutrophils # Seg Neutrophils # Man 18.5 H Lymphocytes # (Manual) 0.6 L PT INR ABG pH ABG pO2 ABG HCO3 ABG O2 Saturation ABG Base Excess ABG Hemoglobin Oxyhemoglobin Sodium Potassium Chloride Carbon Dioxide BUN Creatinine 0.6 L Glucose 130 H POC Glucose 149 H Calcium 8.1 L Phosphorus AST ALT Ammonia Albumin 03/03/22 03/03/22 03/04/22 11:13 17:30 00:02 WBC RBC Hgb Hct MCV MCH MCHC RDW Lymph % (Auto) [place] % (Auto) Lymph # (Auto) [place] # (Auto) Seg Neutrophils % Seg Neuts % (Manual) Lymphocytes % (Manual) Seg Neutrophils # Seg Neutrophils # Man Lymphocytes # (Manual) PT INR ABG pH ABG pO2 ABG HCO3 ABG O2 Saturation ABG Base Excess ABG Hemoglobin Oxyhemoglobin Sodium Potassium Chloride Carbon Dioxide BUN Creatinine Glucose POC Glucose 139 H 138 H 157 H Calcium Phosphorus AST ALT Ammonia Albumin 03/04/22 03/04/22 03/04/22 05:32 05:32 05:48 WBC 16.1 H RBC 2.81 L Hgb 9.3 L Hct 28.8 L MCV 102 H MCH 33 H MCHC RDW 16.7 H Lymph % (Auto) [place] % (Auto) Lymph # (Auto) [place] # (Auto) Seg Neutrophils % Seg Neuts % (Manual) Lymphocytes % (Manual) Seg Neutrophils # Seg Neutrophils # Man Lymphocytes # (Manual) PT INR ABG pH ABG pO2 ABG HCO3 ABG O2 Saturation ABG Base Excess ABG Hemoglobin Oxyhemoglobin Sodium Potassium Chloride Carbon Dioxide BUN Creatinine 0.7 L Glucose 135 H POC Glucose 145 H Calcium 8.3 L Phosphorus AST ALT Ammonia Albumin 03/04/22 03/04/22 03/05/22 11:34 16:29 00:28 WBC RBC Hgb Hct MCV MCH MCHC RDW Lymph % (Auto) [place] % (Auto) Lymph # (Auto) [place] # (Auto) Seg Neutrophils % Seg Neuts % (Manual) Lymphocytes % (Manual) Seg Neutrophils # Seg Neutrophils # Man Lymphocytes # (Manual) PT INR ABG pH ABG pO2 ABG HCO3 ABG O2 Saturation ABG Base Excess ABG Hemoglobin Oxyhemoglobin Sodium Potassium Chloride Carbon Dioxide BUN Creatinine Glucose POC Glucose 148 H 140 H 116 H Calcium Phosphorus AST ALT Ammonia Albumin 03/05/22 03/05/22 03/05/22 06:29 11:30 17:38 WBC RBC Hgb Hct MCV MCH MCHC RDW Lymph % (Auto) [place] % (Auto) Lymph # (Auto) [place] # (Auto) Seg Neutrophils % Seg Neuts % (Manual) Lymphocytes % (Manual) Seg Neutrophils # Seg Neutrophils # Man Lymphocytes # (Manual) PT INR ABG pH ABG pO2 ABG HCO3 ABG O2 Saturation ABG Base Excess ABG Hemoglobin Oxyhemoglobin Sodium Potassium Chloride Carbon Dioxide BUN Creatinine Glucose POC Glucose 114 H 114 H 117 H Calcium Phosphorus AST ALT Ammonia Albumin 03/06/22 03/06/22 03/06/22 04:17 04:17 06:06 WBC 13.4 H RBC 2.85 L Hgb 9.4 L Hct 29.0 L MCV 102 H MCH 33 H MCHC RDW 16.4 H Lymph % (Auto) [place] % (Auto) Lymph # (Auto) [place] # (Auto) Seg Neutrophils % Seg Neuts % (Manual) Lymphocytes % (Manual) Seg Neutrophils # Seg Neutrophils # Man Lymphocytes # (Manual) PT INR ABG pH ABG pO2 ABG HCO3 ABG O2 Saturation ABG Base Excess ABG Hemoglobin Oxyhemoglobin Sodium Potassium 3.5 L Chloride Carbon Dioxide 31 H BUN Creatinine 0.6 L Glucose 101 H POC Glucose 106 H Calcium 7.7 L Phosphorus 2.00 L AST ALT Ammonia Albumin 03/06/22 03/06/22 03/07/22 18:04 23:50 05:14 WBC RBC Hgb Hct MCV MCH MCHC RDW Lymph % (Auto) [place] % (Auto) Lymph # (Auto) [place] # (Auto) Seg Neutrophils % Seg Neuts % (Manual) Lymphocytes % (Manual) Seg Neutrophils # Seg Neutrophils # Man Lymphocytes # (Manual) PT INR ABG pH ABG pO2 ABG HCO3 ABG O2 Saturation ABG Base Excess ABG Hemoglobin Oxyhemoglobin Sodium Potassium Chloride Carbon Dioxide BUN Creatinine Glucose POC Glucose 108 H 115 H 116 H Calcium Phosphorus AST ALT Ammonia Albumin 03/07/22 03/07/22 03/08/22 11:42 18:13 04:34 WBC RBC 2.86 L Hgb 9.2 L Hct 29.3 L MCV 103 H MCH MCHC 31 L RDW 16.9 H Lymph % (Auto) [place] % (Auto) Lymph # (Auto) [place] # (Auto) Seg Neutrophils % Seg Neuts % (Manual) Lymphocytes % (Manual) Seg Neutrophils # Seg Neutrophils # Man Lymphocytes # (Manual) PT INR ABG pH ABG pO2 ABG HCO3 ABG O2 Saturation ABG Base Excess ABG Hemoglobin Oxyhemoglobin Sodium Potassium Chloride Carbon Dioxide BUN Creatinine Glucose POC Glucose 123 H 109 H Calcium Phosphorus AST ALT Ammonia Albumin 03/08/22 03/08/22 03/08/22 04:34 11:29 16:34 WBC RBC Hgb Hct MCV MCH MCHC RDW Lymph % (Auto) [place] % (Auto) Lymph # (Auto) [place] # (Auto) Seg Neutrophils % Seg Neuts % (Manual) Lymphocytes % (Manual) Seg Neutrophils # Seg Neutrophils # Man Lymphocytes # (Manual) PT INR ABG pH ABG pO2 ABG HCO3 ABG O2 Saturation ABG Base Excess ABG Hemoglobin Oxyhemoglobin Sodium Potassium Chloride Carbon Dioxide 33 H BUN Creatinine 0.5 L Glucose 109 H POC Glucose 117 H 109 H Calcium 7.6 L Phosphorus AST ALT Ammonia Albumin 03/08/22 03/09/22 03/10/22 23:56 11:15 03:57 WBC RBC 2.99 L Hgb 9.9 L Hct 30.3 L MCV 102 H MCH 33 H MCHC RDW 16.8 H Lymph % (Auto) 13.3 L [place] % (Auto) 12.5 H Lymph # (Auto) [place] # (Auto) 1.3 H Seg Neutrophils % 72.4 H Seg Neuts % (Manual) Lymphocytes % (Manual) Seg Neutrophils # Seg Neutrophils # Man Lymphocytes # (Manual) PT INR ABG pH ABG pO2 ABG HCO3 ABG O2 Saturation ABG Base Excess ABG Hemoglobin Oxyhemoglobin Sodium Potassium Chloride Carbon Dioxide BUN Creatinine Glucose POC Glucose 106 H 110 H Calcium Phosphorus AST ALT Ammonia Albumin 03/10/22 03/10/22 03/10/22 03:57 04:50 16:04 WBC RBC Hgb Hct MCV MCH MCHC RDW Lymph % (Auto) [place] % (Auto) Lymph # (Auto) [place] # (Auto) Seg Neutrophils % Seg Neuts % (Manual) Lymphocytes % (Manual) Seg Neutrophils # Seg Neutrophils # Man Lymphocytes # (Manual) PT INR ABG pH 7.465 H ABG pO2 ABG HCO3 31.9 H ABG O2 Saturation ABG Base Excess 7.3 H ABG Hemoglobin 11.0 L Oxyhemoglobin Sodium Potassium 3.4 L Chloride Carbon Dioxide BUN Creatinine 0.6 L Glucose POC Glucose 115 H Calcium 8.1 L Phosphorus AST ALT Ammonia Albumin 1.9 L 03/11/22 03/11/22 03/11/22 04:02 04:02 04:02 WBC 12.0 H RBC 2.81 L Hgb 9.2 L Hct 29.1 L MCV 103 H MCH 33 H MCHC RDW 17.5 H Lymph % (Auto) [place] % (Auto) Lymph # (Auto) [place] # (Auto) Seg Neutrophils % Seg Neuts % (Manual) Lymphocytes % (Manual) Seg Neutrophils # Seg Neutrophils # Man Lymphocytes # (Manual) PT 16.2 H INR 1.16 H ABG pH ABG pO2 ABG HCO3 ABG O2 Saturation ABG Base Excess ABG Hemoglobin Oxyhemoglobin Sodium Potassium Chloride Carbon Dioxide BUN Creatinine 0.5 L Glucose 104 H POC Glucose Calcium 7.9 L Phosphorus AST ALT Ammonia Albumin 03/11/22 03/11/22 03/11/22 05:10 11:07 16:32 WBC RBC Hgb Hct MCV MCH MCHC RDW Lymph % (Auto) [place] % (Auto) Lymph # (Auto) [place] # (Auto) Seg Neutrophils % Seg Neuts % (Manual) Lymphocytes % (Manual) Seg Neutrophils # Seg Neutrophils # Man Lymphocytes # (Manual) PT INR ABG pH 7.476 H ABG pO2 ABG HCO3 29.7 H ABG O2 Saturation ABG Base Excess 5.7 H ABG Hemoglobin 9.1 L Oxyhemoglobin Sodium Potassium Chloride Carbon Dioxide BUN Creatinine Glucose POC Glucose 108 H 121 H Calcium Phosphorus AST ALT Ammonia Albumin 03/12/22 03/13/22 03/13/22 05:51 06:08 12:02 WBC RBC 2.73 L Hgb 9.0 L Hct 27.5 L MCV 101 H MCH 33 H MCHC RDW 17.2 H Lymph % (Auto) [place] % (Auto) Lymph # (Auto) [place] # (Auto) Seg Neutrophils % Seg Neuts % (Manual) Lymphocytes % (Manual) Seg Neutrophils # Seg Neutrophils # Man Lymphocytes # (Manual) PT INR ABG pH ABG pO2 ABG HCO3 ABG O2 Saturation ABG Base Excess ABG Hemoglobin Oxyhemoglobin Sodium Potassium Chloride Carbon Dioxide BUN Creatinine Glucose POC Glucose 116 H 111 H Calcium Phosphorus AST ALT Ammonia Albumin 03/13/22 03/13/22 03/14/22 12:48 18:17 03:58 WBC RBC 2.97 L Hgb 9.7 L Hct 30.0 L MCV 101 H MCH 33 H MCHC RDW 16.7 H Lymph % (Auto) [place] % (Auto) Lymph # (Auto) [place] # (Auto) Seg Neutrophils % Seg Neuts % (Manual) Lymphocytes % (Manual) Seg Neutrophils # Seg Neutrophils # Man Lymphocytes # (Manual) PT INR ABG pH ABG pO2 ABG HCO3 ABG O2 Saturation ABG Base Excess ABG Hemoglobin Oxyhemoglobin Sodium Potassium Chloride Carbon Dioxide BUN Creatinine Glucose POC Glucose 125 H 114 H Calcium Phosphorus AST ALT Ammonia Albumin 03/14/22 03/14/22 03/14/22 03:58 13:01 16:41 WBC RBC Hgb Hct MCV MCH MCHC RDW Lymph % (Auto) [place] % (Auto) Lymph # (Auto) [place] # (Auto) Seg Neutrophils % Seg Neuts % (Manual) Lymphocytes % (Manual) Seg Neutrophils # Seg Neutrophils # Man Lymphocytes # (Manual) PT INR ABG pH ABG pO2 ABG HCO3 ABG O2 Saturation ABG Base Excess ABG Hemoglobin Oxyhemoglobin Sodium Potassium Chloride Carbon Dioxide BUN Creatinine 0.6 L Glucose POC Glucose 118 H 109 H Calcium 8.2 L Phosphorus AST ALT Ammonia Albumin 03/16/22 03/16/22 03/17/22 05:28 05:28 23:19 WBC RBC 2.81 L Hgb 9.1 L Hct 27.8 L MCV 99 H MCH MCHC RDW 17.0 H Lymph % (Auto) [place] % (Auto) Lymph # (Auto) [place] # (Auto) Seg Neutrophils % Seg Neuts % (Manual) Lymphocytes % (Manual) Seg Neutrophils # Seg Neutrophils # Man Lymphocytes # (Manual) PT INR ABG pH ABG pO2 ABG HCO3 ABG O2 Saturation ABG Base Excess ABG Hemoglobin Oxyhemoglobin Sodium Potassium Chloride Carbon Dioxide BUN Creatinine 0.5 L Glucose POC Glucose 113 H Calcium 8.2 L Phosphorus AST ALT Ammonia Albumin 03/20/22 03/20/22 03/20/22 04:09 04:09 17:22 WBC RBC 2.90 L Hgb 9.6 L Hct 28.9 L MCV 100 H MCH 33 H MCHC RDW 17.4 H Lymph % (Auto) [place] % (Auto) Lymph # (Auto) [place] # (Auto) Seg Neutrophils % Seg Neuts % (Manual) Lymphocytes % (Manual) Seg Neutrophils # Seg Neutrophils # Man Lymphocytes # (Manual) PT INR ABG pH ABG pO2 ABG HCO3 ABG O2 Saturation ABG Base Excess ABG Hemoglobin Oxyhemoglobin Sodium Potassium Chloride Carbon Dioxide BUN Creatinine 0.6 L Glucose POC Glucose 110 H Calcium 8.2 L Phosphorus AST ALT Ammonia Albumin 03/21/22 03/21/22 03/22/22 18:24 23:09 12:18 WBC RBC Hgb Hct MCV MCH MCHC RDW Lymph % (Auto) [place] % (Auto) Lymph # (Auto) [place] # (Auto) Seg Neutrophils % Seg Neuts % (Manual) Lymphocytes % (Manual) Seg Neutrophils # Seg Neutrophils # Man Lymphocytes # (Manual) PT INR ABG pH ABG pO2 ABG HCO3 ABG O2 Saturation ABG Base Excess ABG Hemoglobin Oxyhemoglobin Sodium Potassium Chloride Carbon Dioxide BUN Creatinine Glucose POC Glucose 110 H 107 H 106 H Calcium Phosphorus AST ALT Ammonia Albumin 03/22/22 03/23/22 03/23/22 14:25 00:21 11:31 WBC RBC Hgb Hct MCV MCH MCHC RDW Lymph % (Auto) [place] % (Auto) Lymph # (Auto) [place] # (Auto) Seg Neutrophils % Seg Neuts % (Manual) Lymphocytes % (Manual) Seg Neutrophils # Seg Neutrophils # Man Lymphocytes # (Manual) PT INR ABG pH ABG pO2 150.5 H ABG HCO3 32.4 H ABG O2 Saturation ABG Base Excess 6.2 H ABG Hemoglobin 11.4 L Oxyhemoglobin Sodium Potassium Chloride Carbon Dioxide BUN Creatinine Glucose POC Glucose 107 H 110 H Calcium Phosphorus AST ALT Ammonia Albumin 03/24/22 03/24/22 03/24/22 03:47 03:47 05:56 WBC RBC 3.18 L Hgb 10.1 L Hct 31.1 L MCV 98 H MCH MCHC RDW 17.4 H Lymph % (Auto) [place] % (Auto) Lymph # (Auto) [place] # (Auto) Seg Neutrophils % Seg Neuts % (Manual) Lymphocytes % (Manual) Seg Neutrophils # Seg Neutrophils # Man Lymphocytes # (Manual) PT INR ABG pH ABG pO2 ABG HCO3 ABG O2 Saturation ABG Base Excess ABG Hemoglobin Oxyhemoglobin Sodium Potassium Chloride Carbon Dioxide BUN Creatinine 0.5 L Glucose POC Glucose 107 H Calcium Phosphorus AST ALT Ammonia Albumin 03/24/22 03/25/22 11:15 00:14 WBC RBC Hgb Hct MCV MCH MCHC RDW Lymph % (Auto) [place] % (Auto) Lymph # (Auto) [place] # (Auto) Seg Neutrophils % Seg Neuts % (Manual) Lymphocytes % (Manual) Seg Neutrophils # Seg Neutrophils # Man Lymphocytes # (Manual) PT INR ABG pH ABG pO2 ABG HCO3 ABG O2 Saturation ABG Base Excess ABG Hemoglobin Oxyhemoglobin Sodium Potassium Chloride Carbon Dioxide BUN Creatinine Glucose POC Glucose 126 H 109 H Calcium Phosphorus AST ALT Ammonia Albumin
[2022-03-25] MEDS: MIDODRINE 2.5 MG TAB FEEDTUBE SCH ×3 (10:24→16:29)
[2022-03-25] MEDS: levETIRAcetam 500 MG/5 ML ORAL LIQD FEEDTUBE SCH ×2 (10:34→22:18)
[2022-03-25] MEDS: SENNOSIDES/DOCUSATE SODIUM 8.6/50 MG TAB FEEDTUBE SCH ×2 (10:34→22:18)
[2022-03-25] MEDS: FAMOTIDINE 20 MG TAB FEEDTUBE SCH ×2 (10:34→22:18)
--- NOTE | 2022-03-25 10:41 | Progress Note ---
<CODYCARSON ZiaRadha - Last Filed: 03/25/22 10:41> Assessment and Plan Assessment and plan: This is a 51-year-old male with HTN, seizure disorder, Down syndrome, HLD, partial blindness admitted with aspiration pneumonia, probable bronchogenic carcinoma, acute hypoxic respiratory failure and acute encephalopathy Neuro: h/o seizure disorder, Down syndrome, partial blindness -Reorientation as needed -Maintain sleep-wake cycle -aspiration/seizure precautions -As needed analgesia -CT head showed no acute abnormality -Continue Keppra Cardiac: h/o HTN, HLD -Cardiology consulted, appreciate recommendations -Blood pressure monitoring per protocol -PO Midodrine Respiratory: Acute hypoxic respiratory failure, ruled out bronchogenic carcinoma -CCM consulted, appreciate recommendations -Intubated on 02/24 with a 8.0 at 23 at the lips but extubated 02/28 -reintubated 02/28 with 8.0 OETT -Vent settings: AC rate 14, TV 360, PEEP 6, FO2 40% -See RT notes for titration -VAP bundle -SPO2 monitoring per protocol -02/18 CTA chest showed no evidence of pulmonary embolism, suspected bronchogenic carcinoma with associated obstruction of the right lower lobe proximal bronchus segment, 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 adenopathy and suspected to left lower lobe metastatic nodule -02/26 Bronch->mucous, no lesion noted -02/27 CT chest showed right mainstem bronchus patent with small amount of interval bronchial fluid which may be mucus (this may account for the appearance of the prior CTA chest fluid-filled airway rather than entering bronchial lesion), previously seen complete left lower lobe since related to bronchial occlusion has significantly improved, there is persistent compressive atelectasis in the right lower lung secondary to the pleural effusion, bilateral pleural effusions, right lung pneumonia -CT neck showed no acute changes -s/p steroids GI: Moderate protein calorie malnutrition -24 hours +443 mL -PPI -NTR consulted for tube feedings -BR: Senokot S : NAD -Monitor intake and output -Renally dose medications -Avoid nephrotoxic medications -Trend BMP ID: Aspiration PNA (resolved), sacral wound (POA) -WOCN consulted -Dressing changes per nursing -S/p Rocephin for 5 days (02/19-02/24) -Monitor WBC and temperature curve Endo: NAD -Avoid hypoglycemia -Accu-Cheks every 6 -Avoid hypoglycemia Heme: NAD -Trend CBC -Transfuse hemoglobin less than 7 -SCDs to BLE while in bed Dispo: -Awaiting guardianship for trach/peg The high probability of a clinically significant, sudden or life threatening deterioration of the [resp] system(s) required my full and direct attention, intervention and personal management. The aggregate critical care time was [60] minutes. This time is in addition to time spent performing reported procedures but includes the following: [x] Data Review and interpretation [x] Patient assessment and monitoring of vital signs [x] Documentation [x] Medication orders and management Disposition Plan: icu Total Time Spent with Patient (Minutes): 60 History Interval history: This is a 51-year-old male with HTN, seizure disorder, Down syndrome, HLD, and partial blindness was a resident of the [facility] who presented to emergency department on 02/19 for evaluation of change in mental status. Of note patient was recently discharged a few weeks ago for a seizure disorder and UTI. Upon arrival to the emergency department patient was noted to be hypoxic with SPO2 in the 80s on a nonrebreather with difficulty breathing. Work-up in the emergency department revealed CXR which showed elevation of the right hemidiaphragm, right lower lung atelectasis and effusion with mild increased pulmonary vascularity but no pneumothorax and CT of the head did not show any acute abnormality. 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 Patient was admitted to the hospitalist service to the [facility]. Hospital course to date: 02/19/2022. Consult pulmonary for further evaluation and possible bronchoscopy. I suspect patient has component of aspiration pneumonia as well. We will obtain a speech therapy evaluation for swallowing and start empiric antibiotics. Continue O2 supplementation to maintain sats greater than 92%. 02/20/2022. Pulmonary feels that the abnormality seen on CT scan is highly unlikely for a mass given negative chest x-ray 1 month ago and no risk factors. Etiology is likely secondary to aspiration from possibly a foreign body most likely food with atelectasis of the right lower lobe. Bronchoscopy is needed in the case to evaluate to see if lung mass is there vs foreign body, but at this time not able to do because no identifiable person that is able to give consent. Continue aspiration precautions and continue speech therapy evaluation for swallowing. Keep n.p.o. for now 02/21/2022. Patient remains NPO. Consider DHT placement. Follow-up with speech therapy evaluation. Pulmonology to consider bronchoscopy if able to obtain cons ent. Continue IV antibiotics for aspiration pneumonia 02/22/2022. Patient remains NPO. Consider DHT placement. Follow-up with speech therapy evaluation. Pulmonology to consider bronchoscopy if able to obtain consent. Continue IV antibiotics for aspiration pneumonia 02/23/2022. DHT placed yesterday. TF initiated for nutritional support. Patient currently with strict NPO. Aspiration precautions. Pulmonology to consider bronchoscopy if able to obtain consent. Continue IV antibiotics for aspiration pneumonia 02/24: Patient was transferred to the ICU for further monitoring. This morning patient remained on high flow nasal cannula on 40 L/100% and despite repeated nasotracheal suctioning patient SPO2 remained in the 80s. Patient was placed on nonrebreather and SPO2 increased to upper 80s. Patient was subsequently intubated by anesthesia. Started on sedation. 02/25: Patient remains sedated on fentanyl, potassium and magnesium repleted. IV fluids and amlodipine discontinued. Possible bronchoscopy tomorrow. 02/26: Patient had a bronchoscopy today which showed mucus and no endobronchial lesions or masses. FiO2 was increased to 100 during and postprocedure weaning as tolerated. Repeat CXR is much improved after bronc. Given 1 L LR bolus due to hypotension. No acute events reported overnight. 02/27: Decreased PEEP, will repeat CT of chest. no acute changes overnight. 02/28: Patient was extubated today however had to be be intubated shortly after. Patient ETT looked mispositioned on x-ray and Dr. Alonzo did do a bedside bronc. Patient was briefly hypotensive and on Levophed postintubation however Levophed was quickly titrated off and patient did not require central line. No acute events reported overnight. Will obtain CT neck d/t difficulty intubating. Ethic committee consulted. 03/01: Overnight patient was hypotensive and started on IVF. Patient started on steroids as no air leak noted and hypotension and given 2 L LR 03/02: Overnight patient received bolus per RN report, no orders seen. Continue supportive care. 03/04: MAIDA overnight. Remains stable on the vent. Awaiting on desicion from ethics community for possible trach and PEG. Continue current supportive measures 03/05: MAIDA overnight. Awaiting on desicion from ethics community for possible trach and PEG. Midodrine held yesterday, HR improved. Continue current supportive measures. Daily PSV trial as tolerated per CCM 03/06: Remains stable on the vent. Continue current supportive measures, daily PSV trial per CCM. Awaiting on desicion for possible trach and PEG. 03/07: MAIDA overnight, remains stable. Continue daily PSV trial as tolerated. Awaiting on desicion for possible trach and PEG. 03/08: Patient failed PSV trial this am due to tachycardia and increase RR. Continue supportive measures and daily PSV trial as tolerated. Possible discussion with ethics and [facility] on Thursday in regards to medical necessity, may need to consider two physician consent if no one is able to claim responsibility for this patient. 03/09: MAIDA overnight. Continue current supportive measures and daily PSV trail as tolerated. Awaiting on decision for possible trach and PEG, discussion with Ethics possibly tomorrow per [facility]. 03/10: no acute events overnight, PSV today. replete potassium. 03/11: No acute events reported overnight, patient failed PSV yesterday and will repeat today. Hospital to start guardianship process. 03/12: No acute events overnight. PSV today 03/13: Patient given 500ml normal saline and started on midodrine for hypotension. No acute events reported overnight. Failed pressure support again this morning. 03/14: No acute events reported overnight, patient blood pressure seems better therefore midodrine discontinued. RT placed on CPAP need lasted for couple hours. Will remove summers 03/15: Midodrine was restarted yesterday evening for hypotension, Summers catheter not removed due to sacral ulcer and history of retention. Unable to crush Flomax and patient will not tolerate doxazosin given hypotension. Given LR bolus this morning. If blood pressure continues to be borderline after bolus, we will adjust management as needed. CPAP as tolerated 03/16: No acute events reported overnight, patient placed on CPAP trial this morning which he failed. 03/17: RT attempted PSV which he failed again today. No acute events reported overnight. 03/18: Awaiting ethic committee's decision on Trach/PEG. Patient tolerated PSV trial for over 3 hrs today, continue daily PSV trial as tolerated. 03/19: MAIDA overnight. Continue current supportive measures. Daily PSV trial as tolerated. Awaiting on desicion for possible trach and PEG. 03/20: MAIDA overnight. Daily PSV trial as tolerated. Awaiting decision on guardianship for trach and PEG. 03/21: Remains stable, condition unchanged. Continue supportive measures and daily PSV trial as tolerated. 03/22: MAIDA overnight. Continue current supportive measures. Daily PSV trial as tolerated 03/23: MAIDA overnight, continue supportive measures and daily PSV trial as tolerated. 03/24: Condition unchanged. Still waiting on Ethics' decision for possible trach/Peg. Continue supportive measures and daily PSV trial as tolerated. 03/25: PSV attempt today, does open eyes to stimuli, no acute events overnight. Hospitalist Physical - Constitutional Vitals: Temp Pulse Resp BP Pulse Ox 98.6 F 100 H 18 123/66 91 03/25/22 07:09 03/25/22 10:13 03/25/22 10:13 03/25/22 10:13 03/25/22 10:13 General appearance: Present: no acute distress, well-nourished - EENT Eyes: Present: PERRL - Neck Neck: Present: normal ROM - Respiratory Respiratory effort: normal Respiratory: bilateral: diminished - Cardiovascular Rhythm: regular Heart Sounds: Present: S1 & S2. Absent: systolic murmur, diastolic murmur - Extremities Extremities: no ischemia, pulses intact, pulses symmetrical, No edema, normal temperature, normal color Peripheral Pulses: within normal limits - Abdominal General gastrointestinal: soft, non-tender, non-distended, normal bowel sounds - Integumentary Integumentary: Present: warm, dry - Psychiatric Psychiatric: other - Neurologic Neurologic: other (intact cough/gag, intermittantly follows commands) - Allied Health Allied health notes reviewed: nursing, RT, social work HEART Score - HEART Score Troponin: Troponin T < 0.010 ng/mL (0.00-0.029) 02/18/22 21:02 Results - Labs CBC & Chem 7: 03/24/22 03:47 03/24/22 03:47 Labs: Laboratory Last Values WBC 6.6 K/mm3 (4.5-11.0) 03/24/22 03:47 RBC 3.18 M/mm3 (3.65-5.03) L 03/24/22 03:47 Hgb 10.1 gm/dl (11.8-15.2) L 03/24/22 03:47 Hct 31.1 % (35.5-45.6) L 03/24/22 03:47 MCV 98 fl (84-94) H 03/24/22 03:47 MCH 32 pg (28-32) 03/24/22 03:47 MCHC 33 % (32-34) 03/24/22 03:47 RDW 17.4 % (13.2-15.2) H 03/24/22 03:47 Plt Count 356 K/mm3 (140-440) 03/24/22 03:47 Lymph % (Auto) 13.3 % (13.4-35.0) L 03/10/22 03:57 [place] % (Auto) 12.5 % (0.0-7.3) H 03/10/22 03:57 Eos % (Auto) 1.4 % (0.0-4.3) 03/10/22 03:57 Baso % (Auto) 0.4 % (0.0-1.8) 03/10/22 03:57 Lymph # (Auto) 1.3 K/mm3 (1.2-5.4) 03/10/22 03:57 [place] # (Auto) 1.3 K/mm3 (0.0-0.8) H 03/10/22 03:57 Eos # (Auto) 0.1 K/mm3 (0.0-0.4) 03/10/22 03:57 Baso # (Auto) 0.0 K/mm3 (0.0-0.1) 03/10/22 03:57 Add Manual Diff Complete 03/03/22 03:54 Total Counted 100 03/03/22 03:54 Seg Neutrophils % 72.4 % (40.0-70.0) H 03/10/22 03:57 Seg Neuts % (Manual) 95.0 % (40.0-70.0) H 03/03/22 03:54 Band Neutrophils % 0 % 03/03/22 03:54 Lymphocytes % (Manual) 3.0 % (13.4-35.0) L 03/03/22 03:54 Reactive Lymphs % (Man) 0 % 03/03/22 03:54 Monocytes % (Manual) 2.0 % (0.0-7.3) 03/03/22 03:54 Eosinophils % (Manual) 0 % (0.0-4.3) 03/03/22 03:54 Basophils % (Manual) 0 % (0.0-1.8) 03/03/22 03:54 Metamyelocytes % 0 % 03/03/22 03:54 Myelocytes % 0 % 03/03/22 03:54 Promyelocytes % 0 % 03/03/22 03:54 Blast Cells % 0 % 03/03/22 03:54 Nucleated RBC % Not Reportable 03/03/22 03:54 Seg Neutrophils # 7.4 K/mm3 (1.8-7.7) 03/10/22 03:57 Seg Neutrophils # Man 18.5 K/mm3 (1.8-7.7) H 03/03/22 03:54 Band Neutrophils # 0.0 K/mm3 03/03/22 03:54 Lymphocytes # (Manual) 0.6 K/mm3 (1.2-5.4) L 03/03/22 03:54 Abs React Lymphs (Man) 0.0 K/mm3 03/03/22 03:54 Monocytes # (Manual) 0.4 K/mm3 (0.0-0.8) 03/03/22 03:54 Eosinophils # (Manual) 0.0 K/mm3 (0.0-0.4) 03/03/22 03:54 Basophils # (Manual) 0.0 K/mm3 (0.0-0.1) 03/03/22 03:54 Metamyelocytes # 0.0 K/mm3 03/03/22 03:54 Myelocytes # 0.0 K/mm3 03/03/22 03:54 Promyelocytes # 0.0 K/mm3 03/03/22 03:54 Blast Cells # 0.0 K/mm3 03/03/22 03:54 WBC Morphology Not Reportable 03/03/22 03:54 Hypersegmented Neuts Not Reportable 03/03/22 03:54 Hyposegmented Neuts Not Reportable 03/03/22 03:54 Hypogranular Neuts Not Reportable 03/03/22 03:54 Smudge Cells Not Reportable 03/03/22 03:54 Toxic Granulation Not Reportable 03/03/22 03:54 Toxic Vacuolation Not Reportable 03/03/22 03:54 Dohle Bodies Not Reportable 03/03/22 03:54 Pelger-Huet Anomaly Not Reportable 03/03/22 03:54 Lakshmi Rods Not Reportable 03/03/22 03:54 Platelet Estimate Consistent w auto 03/03/22 03:54 Clumped Platelets Not Reportable 03/03/22 03:54 Plt Clumps, EDTA Not Reportable 03/03/22 03:54 Large Platelets Not Reportable 03/03/22 03:54 Giant Platelets Not Reportable 03/03/22 03:54 Platelet Satelliting Not Reportable 03/03/22 03:54 Plt Morphology Comment Not Reportable 03/03/22 03:54 RBC Morphology Not Reportable 03/03/22 03:54 Dimorphic RBCs Not Reportable 03/03/22 03:54 Polychromasia Not Reportable 03/03/22 03:54 Hypochromasia Not Reportable 03/03/22 03:54 Poikilocytosis Not Reportable 03/03/22 03:54 Anisocytosis 1+ 03/03/22 03:54 Microcytosis Not Reportable 03/03/22 03:54 Macrocytosis Not Reportable 03/03/22 03:54 Spherocytes Not Reportable 03/03/22 03:54 Pappenheimer Bodies Not Reportable 03/03/22 03:54 Sickle Cells Not Reportable 03/03/22 03:54 Target Cells Not Reportable 03/03/22 03:54 Tear Drop Cells Not Reportable 03/03/22 03:54 Ovalocytes Not Reportable 03/03/22 03:54 Helmet Cells Not Reportable 03/03/22 03:54 Orellana-Luis Lopez Bodies Not Reportable 03/03/22 03:54 [place] Rings Not Reportable 03/03/22 03:54 Shelby Cells Not Reportable 03/03/22 03:54 Bite Cells Not Reportable 03/03/22 03:54 Crenated Cell Not Reportable 03/03/22 03:54 Elliptocytes Not Reportable 03/03/22 03:54 Acanthocytes (Spur) Not Reportable 03/03/22 03:54 Rouleaux Not Reportable 03/03/22 03:54 Hemoglobin C Crystals Not Reportable 03/03/22 03:54 Schistocytes Not Reportable 03/03/22 03:54 Malaria parasites Not Reportable 03/03/22 03:54 Cash Bodies Not Reportable 03/03/22 03:54 Hem Pathologist Commnt No 03/03/22 03:54 PT 16.2 Sec. (12.2-14.9) H 03/11/22 04:02 INR 1.16 (0.87-1.13) H 03/11/22 04:02 ABG pH 7.392 pH Units (7.350-7.450) 03/22/22 14:25 ABG pCO2 54.4 mm Hg 03/22/22 14:25 ABG pO2 150.5 mm Hg (80.0-90.0) H 03/22/22 14:25 ABG HCO3 32.4 mmol/L (20.0-26.0) H 03/22/22 14:25 ABG O2 Saturation 98.8 % (95.0-99.0) 03/22/22 14:25 ABG O2 Content 15.8 (0.0-44) 03/22/22 14:25 ABG Base Excess 6.2 mmol/L (-2.0-3.0) H 03/22/22 14:25 ABG Hemoglobin 11.4 gm/dl (14.0-18.0) L 03/22/22 14:25 ABG Carboxyhemoglobin 1.6 % (0.0-5.0) 03/22/22 14:25 ABG Methemoglobin 0.6 % (0.0-1.5) 03/22/22 14:25 Oxyhemoglobin 96.6 % (95.0-99.0) 03/22/22 14:25 FiO2 30 % 03/22/22 14:25 Sodium 139 mmol/L (137-145) 03/24/22 03:47 Potassium 4.3 mmol/L (3.6-5.0) 03/24/22 03:47 Chloride 101.7 mmol/L (98-107) 03/24/22 03:47 Carbon Dioxide 30 mmol/L (22-30) 03/24/22 03:47 Anion Gap 12 mmol/L 03/24/22 03:47 BUN 20 mg/dL (9-20) 03/24/22 03:47 Creatinine 0.5 mg/dL (0.8-1.3) L 03/24/22 03:47 Estimated GFR > 60 ml/min 03/24/22 03:47 BUN/Creatinine Ratio 40 % 03/24/22 03:47 Glucose 99 mg/dL (75-100) 03/24/22 03:47 POC Glucose 103 mg/dL (70-105) 03/25/22 06:01 Lactic Acid 1.20 mmol/L (0.7-2.0) 02/18/22 21:02 Calcium 8.5 mg/dL (8.4-10.2) 03/24/22 03:47 Phosphorus 3.50 mg/dL (2.5-4.5) 03/20/22 04:09 Magnesium 2.00 mg/dL (1.7-2.3) 03/20/22 04:09 Total Bilirubin 0.30 mg/dL (0.1-1.2) 03/10/22 03:57 AST 17 units/L (5-40) 03/10/22 03:57 ALT 18 units/L (7-56) 03/10/22 03:57 Alkaline Phosphatase 89 units/L (35-129) 03/10/22 03:57 Ammonia 14.0 umol/L (25-60) L 02/18/22 23:22 Troponin T < 0.010 ng/mL (0.00-0.029) 02/18/22 21:02 Total Protein 6.6 g/dL (6.3-8.2) 03/10/22 03:57 Albumin 1.9 g/dL (3.9-5) L 03/10/22 03:57 Albumin/Globulin Ratio 0.4 % 03/10/22 03:57 Urine Color Dark yellow (Yellow) 02/18/22 Unknown Urine Turbidity Clear (Clear) 02/18/22 Unknown Urine pH 7.0 (5.0-7.0) 02/18/22 Unknown Ur Specific Hana 1.015 (1.003-1.030) 02/18/22 Unknown Urine Protein <15 mg/dl mg/dL (Negative) 02/18/22 Unknown Urine Glucose (UA) Negative mg/dL (Negative) 02/18/22 Unknown Urine Ketones Negative mg/dL (Negative) 02/18/22 Unknown Urine Blood Trace (Negative) 02/18/22 Unknown Urine Nitrite Negative (Negative) 02/18/22 Unknown Urine Bilirubin Negative (Negative) 02/18/22 Unknown Urine Urobilinogen < 2.0 mg/dL (<2.0) 02/18/22 Unknown Ur Leukocyte Esterase Negative (Negative) 02/18/22 Unknown Urine WBC (Auto) 2.0 /HPF (0.0-6.0) 02/18/22 Unknown Urine RBC (Auto) 9.0 /HPF (0.0-6.0) 02/18/22 Unknown Urine Mucus Few /HPF 02/18/22 Unknown Urine Opiates Screen Negative 02/18/22 Unknown Urine Methadone Screen Negative 02/18/22 Unknown Ur Barbiturates Screen Negative 02/18/22 Unknown Ur Phencyclidine Scrn Negative 02/18/22 Unknown Ur Amphetamines Screen Negative 02/18/22 Unknown U Benzodiazepines Scrn Negative 02/18/22 Unknown Urine Cocaine Screen Negative 02/18/22 Unknown U Marijuana (THC) Screen Negative 02/18/22 Unknown Drugs of Abuse Note Disclamer 02/18/22 Unknown Plasma/Serum Alcohol < 0.01 % (0-0.07) 02/18/22 21:02 Summers/IV: Voiding Method Indwelling Catheter Active Medications - Current Medications Current Medications: Generic Name Dose Route Start Last Admin Trade Name Freq PRN Reason Stop Dose Admin Acetaminophen 650 mg 03/03/22 09:00 Acetaminophen 325 Mg/10.15 Ml Oral Liqd Unit Dose FEEDTUBE Q4H PRN Pain, Mild (1-3); TEMP > 100.4 Albuterol 2.5 mg 03/12/22 20:00 03/25/22 08:39 Albuterol 2.5 Mg/3 Ml Nebu IH 2.5 mg Q6HRT LAZARUS Administration Famotidine 20 mg 02/25/22 10:00 03/25/22 10:34 Famotidine 20 Mg Tab FEEDTUBE 20 mg BID LAZARUS Administration Heparin Sodium (Porcine) 5,000 unit 02/19/22 06:00 03/25/22 05:18 Heparin 5,000 Unit/1 Ml Vial SUB-Q 5,000 unit Q8HR LAZARUS Administration Hydrophilic Ointment 1 applic 02/24/22 15:05 Lip Therapy Vaseline TP Q2HR PRN Dry Lips Levetiracetam 500 mg 02/25/22 22:00 03/25/22 10:34 Levetiracetam 500 Mg/5 Ml Oral Liqd FEEDTUBE 500 mg BID LAZARUS Administration Levothyroxine Sodium 25 mcg 02/26/22 06:00 03/25/22 05:18 Levothyroxine 25 Mcg Tab FEEDTUBE 25 mcg QAM@0600 LAZARUS Administration Magnesium Hydroxide 30 ml 02/19/22 02:02 Magnesium Hydroxide (Mom) Oral Liqd Udc PO Q4H PRN Constipation Midodrine 2.5 mg 03/19/22 12:00 03/25/22 10:24 Midodrine 2.5 Mg Tab FEEDTUBE Not Given TID@0800,1200,1600 [facility] Multi-Ingred Cream/Lotion/Oil/Oint 1 applic 02/24/22 15:05 Mineral Oil/Petrolatum, White Ophth Oint 3.5 Gm OU Q4HR PRN Dry Eye(s) Ondansetron HCl 4 mg 02/19/22 02:02 Ondansetron 4 Mg/2 Ml Inj IV Q8H PRN Nausea And Vomiting Pravastatin Sodium 40 mg 02/25/22 22:00 03/24/22 21:05 Pravastatin 40 Mg Tab FEEDTUBE 40 mg QHS LAZARUS Administration Senna/Docusate Sodium 1 tab 02/24/22 22:00 03/25/22 10:34 Sennosides/Docusate Sodium 8.6/50 Mg Tab FEEDTUBE 1 tab BID LAZARUS Administration Sodium Chloride 10 ml 02/19/22 10:00 03/25/22 10:34 Sodium Chloride 0.9% 10 Ml Flush Syringe IV 10 ml BID LAZARUS Administration Sodium Chloride 10 ml 02/19/22 02:02 03/03/22 14:21 Sodium Chloride 0.9% 10 Ml Flush Syringe IV 10 ml PRN PRN Administration LINE FLUSH Nutrition/Malnutrition Assess - Dietary Evaluation Nutrition/Malnutrition Findings: Nutrition Notes Start: 02/19/22 14:29 Freq: Status: Active Protocol: Document 03/21/22 15:43 IVAN (Rec: 03/21/22 15:45 IVAN [id number]) Nutrition Notes Initial or Follow up Reassessment Current Diagnosis Hypertension,Respiratory Failure,Hyperlipidemia Other Pertinent Diagnosis Asp pneu, acute encephalopathy , seizure d/o, partial blindness Current Diet TF - Vital AF 1.2 at 50ml/hr Labs/Tests Reviewed Pertinent Medications Reviewed Height 5 ft 3 in Weight 63.2 kg [place] Body Weight (kg) 56.36 BMI 24.7 Weight Status Appropriate Subjective/Other Information Pt remains on vent support; still awaiting decision on guardianship for trach/PEG placement. Pt continues to tolerate TF at goal rate. Last BM was 03/18 per RN verbal report. Percent of energy/protein needs met: 90% energy 100% pro Burn Absent Trauma Absent #1 Nutrition Diagnosis Inadequate oral intake Diagnosis Progress(for reassessment Continues documentation) Is patient on ventilator? Yes Is Patient Ambulatory and/or Out of Bed No REE-([place]ley-St. Jeor-confined to bed) [phone] Calculation Used for Recommendations [facility] Additional Notes Pro needs 1.2-2g/k-126g/ day Fluid needs 1ml/kcal Nutrition Intervention Nutrition Support: Continue Vital AF 1.2 at 50ml/ hr with 75ml water flush q4h. Kcal 1,440 Protein (gm) 90 Carbohydrates (gm) 133 Fat (gm) 65 Fluid (mL) 973 Fiber (gm) 6 Goal #1 TF tolerance Goal #2 TF to meet at least 75% energy and pro needs Follow-Up By: 03/28/22 Additional Comments F/U: stable TF, trach/PEG placement, vent status, wt, BM <SILVIA BUCHANAN - Last Filed: 04/01/22 10:49> History Interval history: I saw and evaluated the patient. I agree with the findings and the plan of care as documented in the Nurse Practitioner's~note, with the following corrections and additions. Hospitalist Physical - Constitutional Vitals: Temp Pulse Resp BP Pulse Ox 97.9 F 71 14 121/68 97 04/01/22 07:09 04/01/22 07:51 04/01/22 07:51 04/01/22 07:43 04/01/22 07:43 HEART Score - HEART Score Troponin: Troponin T < 0.010 ng/mL (0.00-0.029) 02/18/22 21:02 Results - Labs CBC & Chem 7: 03/31/22 03:56 03/31/22 03:56 Labs: Laboratory Last Values WBC 9.7 K/mm3 (4.5-11.0) 03/31/22 03:56 RBC 3.08 M/mm3 (3.65-5.03) L 03/31/22 03:56 Hgb 9.5 gm/dl (11.8-15.2) L 03/31/22 03:56 Hct 30.1 % (35.5-45.6) L 03/31/22 03:56 MCV 98 fl (84-94) H 03/31/22 03:56 MCH 31 pg (28-32) 03/31/22 03:56 MCHC 32 % (32-34) 03/31/22 03:56 RDW 17.7 % (13.2-15.2) H 03/31/22 03:56 Plt Count 331 K/mm3 (140-440) 03/31/22 03:56 Lymph % (Auto) 7.5 % (13.4-35.0) L 03/28/22 04:06 [place] % (Auto) 10.5 % (0.0-7.3) H 03/28/22 04:06 Eos % (Auto) 0.9 % (0.0-4.3) 03/28/22 04:06 Baso % (Auto) 0.4 % (0.0-1.8) 03/28/22 04:06 Lymph # (Auto) 1.1 K/mm3 (1.2-5.4) L 03/28/22 04:06 [place] # (Auto) 1.5 K/mm3 (0.0-0.8) H 03/28/22 04:06 Eos # (Auto) 0.1 K/mm3 (0.0-0.4) 03/28/22 04:06 Baso # (Auto) 0.1 K/mm3 (0.0-0.1) 03/28/22 04:06 Add Manual Diff Complete 03/03/22 03:54 Total Counted 100 03/03/22 03:54 Seg Neutrophils % 80.7 % (40.0-70.0) H 03/28/22 04:06 Seg Neuts % (Manual) 95.0 % (40.0-70.0) H 03/03/22 03:54 Band Neutrophils % 0 % 03/03/22 03:54 Lymphocytes % (Manual) 3.0 % (13.4-35.0) L 03/03/22 03:54 Reactive Lymphs % (Man) 0 % 03/03/22 03:54 Monocytes % (Manual) 2.0 % (0.0-7.3) 03/03/22 03:54 Eosinophils % (Manual) 0 % (0.0-4.3) 03/03/22 03:54 Basophils % (Manual) 0 % (0.0-1.8) 03/03/22 03:54 Metamyelocytes % 0 % 03/03/22 03:54 Myelocytes % 0 % 03/03/22 03:54 Promyelocytes % 0 % 03/03/22 03:54 Blast Cells % 0 % 03/03/22 03:54 Nucleated RBC % Not Reportable 03/03/22 03:54 Seg Neutrophils # 11.4 K/mm3 (1.8-7.7) H 03/28/22 04:06 Seg Neutrophils # Man 18.5 K/mm3 (1.8-7.7) H 03/03/22 03:54 Band Neutrophils # 0.0 K/mm3 03/03/22 03:54 Lymphocytes # (Manual) 0.6 K/mm3 (1.2-5.4) L 03/03/22 03:54 Abs React Lymphs (Man) 0.0 K/mm3 03/03/22 03:54 Monocytes # (Manual) 0.4 K/mm3 (0.0-0.8) 03/03/22 03:54 Eosinophils # (Manual) 0.0 K/mm3 (0.0-0.4) 03/03/22 03:54 Basophils # (Manual) 0.0 K/mm3 (0.0-0.1) 03/03/22 03:54 Metamyelocytes # 0.0 K/mm3 03/03/22 03:54 Myelocytes # 0.0 K/mm3 03/03/22 03:54 Promyelocytes # 0.0 K/mm3 03/03/22 03:54 Blast Cells # 0.0 K/mm3 03/03/22 03:54 WBC Morphology Not Reportable 03/03/22 03:54 Hypersegmented Neuts Not Reportable 03/03/22 03:54 Hyposegmented Neuts Not Reportable 03/03/22 03:54 Hypogranular Neuts Not Reportable 03/03/22 03:54 Smudge Cells Not Reportable 03/03/22 03:54 Toxic Granulation Not Reportable 03/03/22 03:54 Toxic Vacuolation Not Reportable 03/03/22 03:54 Dohle Bodies Not Reportable 03/03/22 03:54 Pelger-Huet Anomaly Not Reportable 03/03/22 03:54 Lakshmi Rods Not Reportable 03/03/22 03:54 Platelet Estimate Consistent w auto 03/03/22 03:54 Clumped Platelets Not Reportable 03/03/22 03:54 Plt Clumps, EDTA Not Reportable 03/03/22 03:54 Large Platelets Not Reportable 03/03/22 03:54 Giant Platelets Not Reportable 03/03/22 03:54 Platelet Satelliting Not Reportable 03/03/22 03:54 Plt Morphology Comment Not Reportable 03/03/22 03:54 RBC Morphology Not Reportable 03/03/22 03:54 Dimorphic RBCs Not Reportable 03/03/22 03:54 Polychromasia Not Reportable 03/03/22 03:54 Hypochromasia Not Reportable 03/03/22 03:54 Poikilocytosis Not Reportable 03/03/22 03:54 Anisocytosis 1+ 03/03/22 03:54 Microcytosis Not Reportable 03/03/22 03:54 Macrocytosis Not Reportable 03/03/22 03:54 Spherocytes Not Reportable 03/03/22 03:54 Pappenheimer Bodies Not Reportable 03/03/22 03:54 Sickle Cells Not Reportable 03/03/22 03:54 Target Cells Not Reportable 03/03/22 03:54 Tear Drop Cells Not Reportable 03/03/22 03:54 Ovalocytes Not Reportable 03/03/22 03:54 Helmet Cells Not Reportable 03/03/22 03:54 Orellana-Luis Lopez Bodies Not Reportable 03/03/22 03:54 [place] Rings Not Reportable 03/03/22 03:54 [place] Cells Not Reportable 03/03/22 03:54 Bite Cells Not Reportable 03/03/22 03:54 Crenated Cell Not Reportable 03/03/22 03:54 Elliptocytes Not Reportable 03/03/22 03:54 Acanthocytes (Spur) Not Reportable 03/03/22 03:54 Rouleaux Not Reportable 03/03/22 03:54 Hemoglobin C Crystals Not Reportable 03/03/22 03:54 Schistocytes Not Reportable 03/03/22 03:54 Malaria parasites Not Reportable 03/03/22 03:54 Cash Bodies Not Reportable 03/03/22 03:54 Hem Pathologist Commnt No 03/03/22 03:54 PT 16.2 Sec. (12.2-14.9) H 03/11/22 04:02 INR 1.16 (0.87-1.13) H 03/11/22 04:02 ABG pH 7.392 pH Units (7.350-7.450) 03/22/22 14:25 ABG pCO2 54.4 mm Hg 03/22/22 14:25 ABG pO2 150.5 mm Hg (80.0-90.0) H 03/22/22 14:25 ABG HCO3 32.4 mmol/L (20.0-26.0) H 03/22/22 14:25 ABG O2 Saturation 98.8 % (95.0-99.0) 03/22/22 14:25 ABG O2 Content 15.8 (0.0-44) 03/22/22 14:25 ABG Base Excess 6.2 mmol/L (-2.0-3.0) H 03/22/22 14:25 ABG Hemoglobin 11.4 gm/dl (14.0-18.0) L 03/22/22 14:25 ABG Carboxyhemoglobin 1.6 % (0.0-5.0) 03/22/22 14:25 ABG Methemoglobin 0.6 % (0.0-1.5) 03/22/22 14:25 Oxyhemoglobin 96.6 % (95.0-99.0) 03/22/22 14:25 FiO2 30 % 03/22/22 14:25 Sodium 135 mmol/L (137-145) L 03/31/22 03:56 Potassium 4.5 mmol/L (3.6-5.0) 03/31/22 03:56 Chloride 97.4 mmol/L (98-107) L 03/31/22 03:56 Carbon Dioxide 31 mmol/L (22-30) H 03/31/22 03:56 Anion Gap 11 mmol/L 03/31/22 03:56 BUN 18 mg/dL (9-20) 03/31/22 03:56 Creatinine 0.5 mg/dL (0.8-1.3) L 03/31/22 03:56 Estimated GFR > 60 ml/min 03/31/22 03:56 BUN/Creatinine Ratio 36 % 03/31/22 03:56 Glucose 102 mg/dL (75-100) H 03/31/22 03:56 POC Glucose 118 mg/dL (70-105) H 04/01/22 00:09 Lactic Acid 1.20 mmol/L (0.7-2.0) 02/18/22 21:02 Calcium 8.8 mg/dL (8.4-10.2) 03/31/22 03:56 Phosphorus 3.50 mg/dL (2.5-4.5) 03/20/22 04:09 Magnesium 2.00 mg/dL (1.7-2.3) 03/20/22 04:09 Total Bilirubin 0.30 mg/dL (0.1-1.2) 03/10/22 03:57 AST 17 units/L (5-40) 03/10/22 03:57 ALT 18 units/L (7-56) 03/10/22 03:57 Alkaline Phosphatase 89 units/L (35-129) 03/10/22 03:57 Ammonia 14.0 umol/L (25-60) L 02/18/22 23:22 Troponin T < 0.010 ng/mL (0.00-0.029) 02/18/22 21:02 Total Protein 6.6 g/dL (6.3-8.2) 03/10/22 03:57 Albumin 1.9 g/dL (3.9-5) L 03/10/22 03:57 Albumin/Globulin Ratio 0.4 % 03/10/22 03:57 Urine Color Yellow (Yellow) 03/27/22 08:36 Urine Turbidity Cloudy (Clear) 03/27/22 08:36 Urine pH 7.0 (5.0-7.0) 02/18/22 Unknown Ur Specific Hana 1.015 (1.003-1.030) 02/18/22 Unknown Specific Hana (Man) 1.020 (1.003-1.030) 03/27/22 08:36 Urine Protein <15 mg/dl mg/dL (Negative) 02/18/22 Unknown Ur Protein (Man) 1+ mg/dL (Negative) 03/27/22 08:36 Urine Glucose (UA) Negative mg/dL (Negative) 02/18/22 Unknown Urine Ketones Negative mg/dL (Negative) 02/18/22 Unknown Ur Ketones (Man) Negative (Negative) 03/27/22 08:36 Urine Blood Trace (Negative) 02/18/22 Unknown Urine Nitrite Negative (Negative) 02/18/22 Unknown Ur Nitrite (Man) Negative (Negative) 03/27/22 08:36 Ur Reducing Substances Not Reportable 03/27/22 08:36 Urine Bilirubin Negative (Negative) 02/18/22 Unknown Urine Bilirubin (Man) Negative (Negative) 03/27/22 08:36 Urine Ictotest Not Reportable 03/27/22 08:36 Urine Urobilinogen < 2.0 mg/dL (<2.0) 02/18/22 Unknown Ur Leukocyte Esterase Negative (Negative) 02/18/22 Unknown Leukocyte Esterase (Man) Moderate (Negative) 03/27/22 08:36 Urine WBC (Auto) > 182.0 /HPF (0.0-6.0) H 03/27/22 08:36 Urine RBC (Auto) 9.0 /HPF (0.0-6.0) 03/27/22 08:36 U Epithel Cells (Auto) < 1.0 /HPF (0-13.0) 03/27/22 08:36 Urine RBC (Manual) 1+ (Negative) 03/27/22 08:36 Urine Mucus Few /HPF 03/27/22 08:36 Urine Yeast (Budding) 2+ /HPF 03/27/22 08:36 Urine Opiates Screen Negative 02/18/22 Unknown Urine Methadone Screen Negative 02/18/22 Unknown Ur Barbiturates Screen Negative 02/18/22 Unknown Ur Phencyclidine Scrn Negative 02/18/22 Unknown Ur Amphetamines Screen Negative 02/18/22 Unknown U Benzodiazepines Scrn Negative 02/18/22 Unknown Urine Cocaine Screen Negative 02/18/22 Unknown U Marijuana (THC) Screen Negative 02/18/22 Unknown Drugs of Abuse Note Disclamer 02/18/22 Unknown Plasma/Serum Alcohol < 0.01 % (0-0.07) 02/18/22 21:02 Summers/IV: Voiding Method Indwelling Catheter Active Medications - Current Medications Current Medications: Generic Name Dose Route Start Last Admin Trade Name Freq PRN Reason Stop Dose Admin Acetaminophen 650 mg 03/03/22 09:00 Acetaminophen 325 Mg/10.15 Ml Oral Liqd Unit Dose FEEDTUBE Q4H PRN Pain, Mild (1-3); TEMP > 100.4 Albuterol 2.5 mg 03/12/22 20:00 04/01/22 07:50 Albuterol 2.5 Mg/3 Ml Nebu IH 2.5 mg Q6HRT LAZARUS Administration Famotidine 20 mg 02/25/22 10:00 04/01/22 09:20 Famotidine 20 Mg Tab FEEDTUBE 20 mg BID LAZARUS Administration Heparin Sodium (Porcine) 5,000 unit 02/19/22 06:00 04/01/22 05:22 Heparin 5,000 Unit/1 Ml Vial SUB-Q 5,000 unit Q8HR LAZARUS Administration Levetiracetam 500 mg 02/25/22 22:00 04/01/22 09:20 Levetiracetam 500 Mg/5 Ml Oral Liqd FEEDTUBE 500 mg BID LAZARUS Administration Levothyroxine Sodium 25 mcg 02/26/22 06:00 04/01/22 05:22 Levothyroxine 25 Mcg Tab FEEDTUBE 25 mcg QAM@0600 LAZARUS Administration Magnesium Hydroxide 30 ml 02/19/22 02:02 Magnesium Hydroxide (Mom) Oral Liqd Udc PO Q4H PRN Constipation Midodrine 2.5 mg 03/19/22 12:00 04/01/22 09:20 Midodrine 2.5 Mg Tab FEEDTUBE 2.5 mg TID@0800,1200,1600 LAZARUS Administration Multi-Ingred Cream/Lotion/Oil/Oint 1 applic 02/24/22 15:05 Mineral Oil/Petrolatum, White Ophth Oint 3.5 Gm OU Q4HR PRN Dry Eye(s) Ondansetron HCl 4 mg 02/19/22 02:02 Ondansetron 4 Mg/2 Ml Inj IV Q8H PRN Nausea And Vomiting Pravastatin Sodium 40 mg 02/25/22 22:00 03/31/22 21:01 Pravastatin 40 Mg Tab FEEDTUBE 40 mg QHS LAZARUS Administration Senna/Docusate Sodium 1 tab 02/24/22 22:00 03/31/22 23:35 Sennosides/Docusate Sodium 8.6/50 Mg Tab FEEDTUBE 1 tab BID LAZARUS Administration Sodium Chloride 10 ml 02/19/22 10:00 04/01/22 09:20 Sodium Chloride 0.9% 10 Ml Flush Syringe IV 10 ml BID LAZARUS Administration Sodium Chloride 10 ml 02/19/22 02:02 03/03/22 14:21 Sodium Chloride 0.9% 10 Ml Flush Syringe IV 10 ml PRN PRN Administration LINE FLUSH Nutrition/Malnutrition Assess - Dietary Evaluation Nutrition/Malnutrition Findings: Nutrition Notes Start: 02/19/22 14:29 Freq: Status: Active Protocol: Document 03/31/22 14:18 [facility] (Rec: 03/31/22 14:23 [facility] [id number]) Nutrition Notes Initial or Follow up Reassessment Current Diagnosis Hypertension,Respiratory Failure,Hyperlipidemia Other Pertinent Diagnosis Asp pneu, acute encephalopathy , seizure d/o, partial blindness Current Diet TF - Promote at 65ml/hr Labs/Tests Na 135 CO2 - 31 Pertinent Medications Reviewed Height 5 ft 3 in Weight 63.2 kg [place] Body Weight (kg) 56.36 BMI 24.7 Subjective/Other Information Pt remains on vent support; still awaiting decision on guardianship for trach/PEG placement. Observed Promote infusing at 50ml/hr; RN informed of goal rate. BM x 1 on yesterday. Percent of energy/protein needs met: 75% energy 99% pro Burn Absent Trauma Absent #1 Nutrition Diagnosis Inadequate oral intake Diagnosis Progress(for reassessment Continues documentation) Is patient on ventilator? Yes Is Patient Ambulatory and/or Out of Bed No REE-([facility]-confined to bed) [phone] Calculation Used for Recommendations [facility] Additional Notes Pro needs 1.2-2g/k-126g/ day Fluid needs 1ml/kcal Nutrition Intervention Nutrition Support: Continue Promote to goal rate of 65ml/hr. Provide 50ml water flush q4h. Kcal 1,560 Protein (gm) 98 Carbohydrates (gm) 203 Fat (gm) 41 Fluid (mL) 1,309 Fiber (gm) 0 Goal #1 TF tolerance Goal #2 TF to meet 75%-100% energy and pro needs Goal #3 Wound healing Follow-Up By: 04/04/22 Additional Comments F/U: TF goal rate/tolerance
[2022-03-25] MEDS: PRAVASTATIN 40 MG TAB FEEDTUBE SCH (22:18)
[2022-03-26] MEDS: ALBUTEROL 2.5 MG/3 ML NEBU IH SCH ×4 (02:38→20:08)
[2022-03-26] MEDS: LEVOTHYROXINE 25 MCG TAB FEEDTUBE SCH (05:22)
[2022-03-26] MEDS: HEPARIN 5,000 UNIT/1 ML VIAL SUB-Q SCH ×3 (05:22→21:43)
[2022-03-26] MEDS: MIDODRINE 2.5 MG TAB FEEDTUBE SCH ×3 (07:33→16:55)
--- NOTE | 2022-03-26 09:27 | Progress Note ---
Assessment and Plan 61 y/o male with abnormal CT of chest. 03/26/22: Day 30 of Intubation. Daily PSV trials. no new recommendations. 03/25/22: Day 29 of intubation. RT to try PSV this am, hesistant given low sats but improved with suctioning. Still no word from the hospital in regards to guardianship. I do not feel comfortable with attempting extubation again on this patient given his quick failure and difficult re-intubation. 03/24/22: Day 28 of intubation. reviewed my partners notes from the weekend. Glad patient is tolerating PSV however do not see conventional extubation in the near future given patient's mental status and how fast he failed extubation (within an hour) on his first attempt. Patient was also a difficult re- intubation. Follow up with CM and hospital tomorrow. Continue supportive measures. 03/21/22: Day 25 of intubation. No new updates from the hospital about guardianship. Wound care saw on yesterday. Continue daily PSV trials as tolerated. Guarded prognosis. 03/20/22: Day 24 of intubation. No new recommendations. Still awaiting hospital update in regards to guardianship so that decisions can be made. Continue supportive measures. Wound care to see today. 03/19/22: Day 23 of intubation. Prognosis is still guarded. Will discuss with RT about attempts at daily PSV trials. Per notes, Wound care to see , wound was present on admission. 03/18/22: Day 22 of intubation. Prognosis remains guarded. Not able to obtain trach and peg with consent. Continue daily PSV trials as tolerated. 03/17/22: Day 21 of intubation. Still awaiting some form of decision maker for trach and peg placement. Guarded prognosis. 03/16/22: Day 20 of intubation. BP stable. Continue midodrine. Awaiting emerg ency guardianship from Court to obtain consent for trach and peg. Guarded prognosis. 03/15/22: Day 19 of intubation. BP now is marginal more regularly. Will give an additional liter bolus of LR now. May need to increase Midodrine back to 5. Needs trach in order to be safely weaned from ventilator. Will need peg tube placement in addition to trach. Prognosis remains guarded. Continue PSV trials as tolerated. 03/14/22: Day 18 of intubation. Vitals stable and mental status is unchanged. Still in need of tracheostomy as well as peg tube placement. No guardian appointed yet. 03/13/22: Day 17 of intubation. Agree with bolus and restarting of midodrine. was stopped previously secondary to bradycardia. If patient spikes temp, will culture blood and urine and repeat CXR. Continue daily PSV trials to assess ability for vent liberation. Continues to need trach however no family/guardian to provide consent. Guarded prognosis. 03/12/22: Day 16 of intubation. Following up with hospital in regards to guardian. Continue supportive measures. Guarded prognosis. 03/11/22: hospital now attempting to find emergency guardian to have consent for trach as ethics committee cannot comment on this matter so unable to help. Until then will remain intubated orally. Failed PSV yesterday, will continue to attempt on daily basis. Unfortunate situation. Guarded prognosis. 03/10/22: Today nuñez day 14 of intubation. Given patient's mental state and increased risk of aspiration, the likelihood of conventional extubation with success is very very slim and the patient has already failed this in an extremely short period of time (less than 1 hour). I suspect that he will fail again if tried and could create more difficult reintubation as he was a difficult reintubation on his failed extubation attempt. To prevent further decline and potential complications of prolonged mechanical ventilation, will discuss with ethics and the hospital to use 2 physician consent to obtain trach and peg for this patient with hopes of liberating him from the mechanical ventilator. he has very minimal vent requirements but as been stated several times above, he continues to aspirate and failed conventional extubation almost immediately. Will consult surgery today. Dr. Mancia is prepared to sign consent as well as myself. Hopeful surgery will be on board with this. Continue supportive care for now. Attempt daily PSV trials. 03/07/22: Daily PSV trials as tolerated. Still no one to step up as adult friend. patient has now been intubated since 02/24/22 and is approaching the time period in which prolonged mechanical ventilation could lead to significant complications that could be detrimental to health (infection, stenosis, malacia etc). Will discuss again with ethics but in regards to medical necessity, may need to consider two physician consent if no one is able to claim responsibility for this patient. He is a full code and we must work in his best interest to prevent further harm. Continue supportive measures but he is not a candidate for conventional extubation given his mental state, despite being on minimal support. He has already failed this before. 03/06/22: PSV trials daily. Will discuss with RT. Spoke with ethics. Plan in place and awaiting on news from [facility] and state. Continue supportive measures. Patient has been intubated since 02/24/22 and is approaching the 2 week shadi of intubation will need to make decisions soon to avoid unnecessary complications related to prolonged intubation. 03/05/22: Will follow up with ethics today. Awaiting some guidance about consent for trach and peg. This is a medical necessity to liberate patient from mechanical ventilation. Continue supportive measures. Ok with daily PSV trials 03/04/22: Follow up with ethics later this afternoon. Spoke with RT and patient does have cuff leak, will stop steroids. Stopping midodrine as BP is stable and bradycardia likely from this. 03/03/22: Await ethics eval. CM has spoken with state as well. Daily cuff leaks. Will start to wean steroids tomorrow. Midodrine can cause bradycardia. If continues or worsens will stop. Guarded prognosis. 03/02/22: Continue supportive measures. Await ethics consult before surgery consult for trach and peg. no further need for fluid boluses. Will continue stress dose steroids but have daily air leak checks by RT. Still will need trach, will not attempt extubation again. Guarded prognosis. 03/01/22: Patient is having increased urine output. This could be the cause of new onset hypotension. Will bolus 2 more liters of LR now and reassess. If this continues may need to work up for SIADH including repeat head CT. Follow up ethics review of case. Will need trach for ventilator liberation. Overall prognosis remains guarded. 02/28/22: Will obtain CT neck, noncontrast to look for airway edema or other possible etiologies for failure. Needs ethics consult as given patient's mental state, inability to clear secretions appropriately, will need trach now that he has failed extubation. However he has no family and no POA so no one to give consent. Continue supportive measures. Guarded prognosis. 02/27/22: Continue improvement of oxygenation. Will drop PEEP down today with goal of being at 6 by in the morning. Will repeat CT scan to confirm improvement as no endobronchial lesion was seen, but also to make sure no parenchymal mass. There was no evidence of extrinsic compression during bronch. Likely extubation tomorrow post CT. 02/26/22: Repeat CXR now. Wean Vent as tolerated. Hopeful extubation soon. Mucous removed. NO ENDOBRONCHIAL LESION/MASS 02/25/22: Bronch tentatively planned for tomorrow with therapeutic scope. Awaiting GI lab to give a time. NPO after midnight. Continue high PEEP 02/24/22: WIll attempt to bronch tomorrow morning. NPO after midnight. Just received word from GI lab they are not able to do bronch tomorrow. Cancel NPO order. Continue to feed patient. Repeat ABG in AM along with CXR. 02/21/22: No new pulm recs for today. Please obtain repeat CXR likely on Thursday. If patient happens to get worse, likely not a candidate for bipap given his weak cough and mental state and inability to communicate. If worsens and requires intubation, will bronch then under emergent circumstances if no POA or family is able to be located. Continue CPT. Will discuss with RT about NT suctioning. 02/20/22: Saw speech while on the floor. Would like patient to be NPO now. Discussed with nurse on floor and with IMS. Same recs pulm way as yesterday. Would benefit from bronch if able to get consent as this is not emergent. Continue CPT and q shift NT suctioning. Reviewed admission in the past and of note, patient was recently admitted last month and had a CXR done on the 29 of January that was normal. Given this p atient's medical history and the history that I obtained from the nursing staff that at the long-term he was eating solid foods, I suspect that this is aspiration, possibly of a foreign body (most likely food) with atelectasis of the right lower lobe. It is highly unlikely that a mass evolved in size in less than a months time and patient, besides age, has no real risk factors for lung carcinoma. Discussed with the nurse and unfortunately there is no identifiable person that is able to give consent. Bronchoscopy is needed in the case to evaluate to see if lung mass is there vs foreign body, but at this time not able to do. In the meanwhile will recommend the following. 1. Will order CPT with neb therapy 3x daily 2. Suggest maybe NT suctioning q shift. May use nasal trumpet, however do not leave this device in the patient 3. Aspiration precautions 4. Consider speech eval to assess swallowing. Will continue to follow. CCT 31 minutes. Subjective Date of service: 03/26/22 Principal diagnosis: f/u Acute respiratory failure Interval history: No acute events. Horowitz was removed on yesterday. Objective Vital Signs - 12hr 03/25/22 03/25/22 03/25/22 22:00 23:00 23:47 Temperature Pulse Rate 99 H 99 H 101 H Pulse Rate [ Anterior Bilateral Throughout] Pulse Rate [ Bilateral Throughout] Pulse Rate [ From Monitor] Respiratory 19 18 Rate Respiratory Rate [Anterior Bilateral Throughout] Respiratory Rate [Bilateral Throughout] Blood Pressure 108/58 105/55 105/55 O2 Sat by Pulse 96 96 96 Oximetry 03/26/22 03/26/22 03/26/22 00:00 01:00 02:00 Temperature 98.3 F Pulse Rate 99 H 100 H 99 H Pulse Rate [ 96 H Anterior Bilateral Throughout] Pulse Rate [ Bilateral Throughout] Pulse Rate [ 116 H From Monitor] Respiratory 16 19 16 Rate Respiratory 14 Rate [Anterior Bilateral Throughout] Respiratory Rate [Bilateral Throughout] Blood Pressure 101/54 112/58 108/35 O2 Sat by Pulse 96 97 96 Oximetry 03/26/22 03/26/22 03/26/22 03:00 04:00 04:55 Temperature 98.2 F Pulse Rate 96 H 100 H 94 H Pulse Rate [ Anterior Bilateral Throughout] Pulse Rate [ Bilateral Throughout] Pulse Rate [ 116 H From Monitor] Respiratory 13 15 Rate Respiratory Rate [Anterior Bilateral Throughout] Respiratory Rate [Bilateral Throughout] Blood Pressure 101/44 92/43 92/43 O2 Sat by Pulse 96 96 97 Oximetry 03/26/22 03/26/22 03/26/22 05:00 06:00 07:00 Temperature Pulse Rate 95 H 96 H 95 H Pulse Rate [ Anterior Bilateral Throughout] Pulse Rate [ Bilateral Throughout] Pulse Rate [ From Monitor] Respiratory 12 17 13 Rate Respiratory Rate [Anterior Bilateral Throughout] Respiratory Rate [Bilateral Throughout] Blood Pressure 98/51 103/48 104/51 O2 Sat by Pulse 97 94 94 Oximetry 03/26/22 03/26/22 03/26/22 07:06 07:18 07:20 Temperature 98.5 F Pulse Rate 95 H Pulse Rate [ Anterior Bilateral Throughout] Pulse Rate [ Bilateral Throughout] Pulse Rate [ 95 H From Monitor] Respiratory Rate Respiratory Rate [Anterior Bilateral Throughout] Respiratory Rate [Bilateral Throughout] Blood Pressure O2 Sat by Pulse 95 Oximetry 03/26/22 03/26/22 03/26/22 07:26 07:30 08:00 Temperature Pulse Rate 102 H 98 H Pulse Rate [ 101 H Anterior Bilateral Throughout] Pulse Rate [ 103 H Bilateral Throughout] Pulse Rate [ From Monitor] Respiratory 17 Rate Respiratory 17 Rate [Anterior Bilateral Throughout] Respiratory 16 Rate [Bilateral Throughout] Blood Pressure 104/51 93/51 O2 Sat by Pulse 94 95 Oximetry Constitutional: alert, other (critically ill on ventilator) Eyes: non-icteric ENT: oropharynx moist Neck: supple Effort: normal Ascultation: Bilateral: diminished breath sounds, rhonchi Cardiovascular: regular rate and rhythm (no mrg) Gastrointestinal: normoactive bowel sounds, soft, non-tender (on o2 vest in place), non-distended Integumentary: normal Extremities: no cyanosis, no edema Neurologic: other (awake) Psychiatric: other (unable to assess) CBC and BMP: 03/24/22 03:47 03/24/22 03:47 ABG, PT/INR, D-dimer: ABG ABG pH 7.392 pH Units (7.350-7.450) 03/22/22 14:25 ABG pCO2 54.4 mm Hg 03/22/22 14:25 ABG pO2 150.5 mm Hg (80.0-90.0) H 03/22/22 14:25 ABG O2 Saturation 98.8 % (95.0-99.0) 03/22/22 14:25 PT/INR, D-dimer PT 16.2 Sec. (12.2-14.9) H 03/11/22 04:02 INR 1.16 (0.87-1.13) H 03/11/22 04:02 Abnormal lab findings: Abnormal Labs 02/18/22 02/18/22 02/18/22 19:34 21:02 21:02 WBC RBC Hgb Hct MCV 101 H MCH 34 H MCHC RDW 16.1 H Lymph % (Auto) Walsh % (Auto) 12.4 H Lymph # (Auto) Walsh # (Auto) 1.2 H Seg Neutrophils % 73.0 H Seg Neuts % (Manual) Lymphocytes % (Manual) Seg Neutrophils # Seg Neutrophils # Man Lymphocytes # (Manual) PT 16.9 H INR 1.20 H ABG pH ABG pO2 ABG HCO3 ABG O2 Saturation ABG Base Excess ABG Hemoglobin Oxyhemoglobin Sodium Potassium Chloride Carbon Dioxide BUN Creatinine Glucose POC Glucose 116 H Calcium Phosphorus AST ALT Ammonia Albumin 02/18/22 02/18/22 02/18/22 21:02 22:45 23:22 WBC RBC Hgb Hct MCV MCH MCHC RDW Lymph % (Auto) Walsh % (Auto) Lymph # (Auto) Walsh # (Auto) Seg Neutrophils % Seg Neuts % (Manual) Lymphocytes % (Manual) Seg Neutrophils # Seg Neutrophils # Man Lymphocytes # (Manual) PT INR ABG pH ABG pO2 55.6 L ABG HCO3 28.4 H ABG O2 Saturation 91.5 L ABG Base Excess 3.8 H ABG Hemoglobin 13.2 L Oxyhemoglobin 89.6 L Sodium Potassium 5.1 H Chloride Carbon Dioxide BUN Creatinine Glucose 102 H POC Glucose Calcium Phosphorus AST 48 H ALT 64 H Ammonia 14.0 L Albumin 2.7 L 02/20/22 02/20/22 02/23/22 04:59 04:59 06:29 WBC 11.4 H RBC Hgb Hct MCV 103 H MCH 33 H MCHC RDW 16.5 H Lymph % (Auto) 5.5 L Walsh % (Auto) 12.1 H Lymph # (Auto) 0.6 L Walsh # (Auto) 1.4 H Seg Neutrophils % 81.4 H Seg Neuts % (Manual) Lymphocytes % (Manual) Seg Neutrophils # 9.2 H Seg Neutrophils # Man Lymphocytes # (Manual) PT INR ABG pH ABG pO2 ABG HCO3 ABG O2 Saturation ABG Base Excess ABG Hemoglobin Oxyhemoglobin Sodium Potassium Chloride Carbon Dioxide BUN Creatinine Glucose POC Glucose 113 H Calcium 8.2 L Phosphorus AST ALT Ammonia Albumin 02/23/22 02/23/22 02/24/22 11:22 16:10 00:02 WBC RBC Hgb Hct MCV MCH MCHC RDW Lymph % (Auto) Walsh % (Auto) Lymph # (Auto) Walsh # (Auto) Seg Neutrophils % Seg Neuts % (Manual) Lymphocytes % (Manual) Seg Neutrophils # Seg Neutrophils # Man Lymphocytes # (Manual) PT INR ABG pH ABG pO2 ABG HCO3 ABG O2 Saturation ABG Base Excess ABG Hemoglobin Oxyhemoglobin Sodium Potassium Chloride Carbon Dioxide BUN Creatinine Glucose POC Glucose 108 H 115 H 109 H Calcium Phosphorus AST ALT Ammonia Albumin 02/24/22 02/24/22 02/24/22 11:05 11:05 13:20 WBC RBC 3.55 L Hgb Hct MCV 100 H MCH 34 H MCHC RDW 15.6 H Lymph % (Auto) Walsh % (Auto) Lymph # (Auto) Walsh # (Auto) Seg Neutrophils % Seg Neuts % (Manual) Lymphocytes % (Manual) Seg Neutrophils # Seg Neutrophils # Man Lymphocytes # (Manual) PT INR ABG pH ABG pO2 ABG HCO3 ABG O2 Saturation ABG Base Excess ABG Hemoglobin Oxyhemoglobin Sodium 146 H Potassium 3.2 L D Chloride 108.4 H Carbon Dioxide BUN Creatinine 0.5 L Glucose POC Glucose 111 H Calcium 7.9 L Phosphorus 2.20 L AST ALT Ammonia Albumin 02/24/22 02/24/22 02/24/22 16:30 17:03 20:25 WBC RBC Hgb Hct MCV MCH MCHC RDW Lymph % (Auto) Walsh % (Auto) Lymph # (Auto) Walsh # (Auto) Seg Neutrophils % Seg Neuts % (Manual) Lymphocytes % (Manual) Seg Neutrophils # Seg Neutrophils # Man Lymphocytes # (Manual) PT INR ABG pH 7.319 L ABG pO2 65.3 L ABG HCO3 31.3 H ABG O2 Saturation 92.2 L ABG Base Excess 3.8 H ABG Hemoglobin 12.0 L Oxyhemoglobin 90.3 L Sodium Potassium Chloride 107.9 H Carbon Dioxide BUN 8 L Creatinine 0.4 L Glucose POC Glucose 108 H Calcium 7.6 L Phosphorus 4.60 H D AST ALT Ammonia Albumin 02/25/22 02/25/22 02/25/22 04:12 04:12 05:05 WBC RBC 3.07 L Hgb 10.2 L Hct 31.5 L MCV 103 H MCH 33 H MCHC RDW 15.6 H Lymph % (Auto) Walsh % (Auto) Lymph # (Auto) Walsh # (Auto) Seg Neutrophils % Seg Neuts % (Manual) Lymphocytes % (Manual) Seg Neutrophils # Seg Neutrophils # Man Lymphocytes # (Manual) PT INR ABG pH ABG pO2 ABG HCO3 32.5 H ABG O2 Saturation ABG Base Excess 5.6 H ABG Hemoglobin 10.8 L Oxyhemoglobin 94.8 L Sodium Potassium 3.5 L Chloride 107.7 H Carbon Dioxide BUN Creatinine 0.5 L Glucose POC Glucose Calcium 7.0 L Phosphorus AST ALT Ammonia Albumin 02/25/22 02/25/22 02/26/22 12:05 18:33 00:07 WBC RBC Hgb Hct MCV MCH MCHC RDW Lymph % (Auto) Walsh % (Auto) Lymph # (Auto) Walsh # (Auto) Seg Neutrophils % Seg Neuts % (Manual) Lymphocytes % (Manual) Seg Neutrophils # Seg Neutrophils # Man Lymphocytes # (Manual) PT INR ABG pH ABG pO2 ABG HCO3 ABG O2 Saturation ABG Base Excess ABG Hemoglobin Oxyhemoglobin Sodium Potassium Chloride Carbon Dioxide BUN Creatinine Glucose POC Glucose 127 H 125 H 114 H Calcium Phosphorus AST ALT Ammonia Albumin 02/26/22 02/26/22 02/26/22 03:30 04:42 11:34 WBC RBC Hgb Hct MCV MCH MCHC RDW Lymph % (Auto) Walsh % (Auto) Lymph # (Auto) Walsh # (Auto) Seg Neutrophils % Seg Neuts % (Manual) Lymphocytes % (Manual) Seg Neutrophils # Seg Neutrophils # Man Lymphocytes # (Manual) PT INR ABG pH ABG pO2 143.2 H ABG HCO3 33.2 H ABG O2 Saturation ABG Base Excess 6.5 H ABG Hemoglobin 9.4 L Oxyhemoglobin Sodium Potassium Chloride Carbon Dioxide 32 H BUN Creatinine 0.7 L Glucose POC Glucose 114 H Calcium 8.0 L Phosphorus AST ALT Ammonia Albumin 02/26/22 02/26/22 02/27/22 18:17 23:37 04:19 WBC 13.7 H RBC 2.78 L Hgb 9.3 L Hct 28.5 L MCV 103 H MCH 33 H MCHC RDW 16.3 H Lymph % (Auto) Walsh % (Auto) Lymph # (Auto) Walsh # (Auto) Seg Neutrophils % Seg Neuts % (Manual) Lymphocytes % (Manual) Seg Neutrophils # Seg Neutrophils # Man Lymphocytes # (Manual) PT INR ABG pH ABG pO2 ABG HCO3 ABG O2 Saturation ABG Base Excess ABG Hemoglobin Oxyhemoglobin Sodium Potassium Chloride Carbon Dioxide BUN Creatinine Glucose POC Glucose 111 H 117 H Calcium Phosphorus AST ALT Ammonia Albumin 02/27/22 02/27/22 02/27/22 04:19 04:35 05:27 WBC RBC Hgb Hct MCV MCH MCHC RDW Lymph % (Auto) Walsh % (Auto) Lymph # (Auto) Walsh # (Auto) Seg Neutrophils % Seg Neuts % (Manual) Lymphocytes % (Manual) Seg Neutrophils # Seg Neutrophils # Man Lymphocytes # (Manual) PT INR ABG pH ABG pO2 96.3 H ABG HCO3 34.9 H ABG O2 Saturation ABG Base Excess 8.1 H ABG Hemoglobin Oxyhemoglobin Sodium Potassium Chloride Carbon Dioxide 31 H BUN Creatinine 0.6 L Glucose 107 H POC Glucose 133 H Calcium 7.8 L Phosphorus AST ALT Ammonia Albumin 02/27/22 02/27/22 02/28/22 11:15 23:35 03:38 WBC 13.3 H RBC 3.05 L Hgb 10.2 L Hct 30.7 L MCV 101 H MCH 33 H MCHC RDW 16.1 H Lymph % (Auto) Walsh % (Auto) Lymph # (Auto) Walsh # (Auto) Seg Neutrophils % Seg Neuts % (Manual) Lymphocytes % (Manual) Seg Neutrophils # Seg Neutrophils # Man Lymphocytes # (Manual) PT INR ABG pH ABG pO2 ABG HCO3 ABG O2 Saturation ABG Base Excess ABG Hemoglobin Oxyhemoglobin Sodium Potassium Chloride Carbon Dioxide BUN Creatinine Glucose POC Glucose 129 H 122 H Calcium Phosphorus AST ALT Ammonia Albumin 02/28/22 02/28/22 02/28/22 04:50 05:30 09:30 WBC RBC Hgb Hct MCV MCH MCHC RDW Lymph % (Auto) Walsh % (Auto) Lymph # (Auto) Walsh # (Auto) Seg Neutrophils % Seg Neuts % (Manual) Lymphocytes % (Manual) Seg Neutrophils # Seg Neutrophils # Man Lymphocytes # (Manual) PT INR ABG pH 7.451 H 7.488 H ABG pO2 77.0 L ABG HCO3 37.1 H 34.6 H ABG O2 Saturation ABG Base Excess 11.5 H 10.1 H ABG Hemoglobin 10.1 L 10.0 L Oxyhemoglobin Sodium Potassium Chloride Carbon Dioxide BUN Creatinine Glucose POC Glucose 121 H Calcium Phosphorus AST ALT Ammonia Albumin 02/28/22 02/28/22 03/01/22 11:36 23:07 04:27 WBC 12.5 H RBC 2.85 L Hgb 9.5 L Hct 28.6 L MCV 101 H MCH 33 H MCHC RDW 15.7 H Lymph % (Auto) Walsh % (Auto) Lymph # (Auto) Walsh # (Auto) Seg Neutrophils % Seg Neuts % (Manual) Lymphocytes % (Manual) Seg Neutrophils # Seg Neutrophils # Man Lymphocytes # (Manual) PT INR ABG pH ABG pO2 ABG HCO3 ABG O2 Saturation ABG Base Excess ABG Hemoglobin Oxyhemoglobin Sodium Potassium Chloride Carbon Dioxide BUN Creatinine Glucose POC Glucose 112 H 107 H Calcium Phosphorus AST ALT Ammonia Albumin 03/01/22 03/01/22 03/01/22 04:27 05:05 11:29 WBC RBC Hgb Hct MCV MCH MCHC RDW Lymph % (Auto) Walsh % (Auto) Lymph # (Auto) Walsh # (Auto) Seg Neutrophils % Seg Neuts % (Manual) Lymphocytes % (Manual) Seg Neutrophils # Seg Neutrophils # Man Lymphocytes # (Manual) PT INR ABG pH ABG pO2 ABG HCO3 ABG O2 Saturation ABG Base Excess ABG Hemoglobin Oxyhemoglobin Sodium 147 H D Potassium Chloride Carbon Dioxide 34 H BUN Creatinine 0.6 L Glucose 128 H POC Glucose 119 H 121 H Calcium 7.9 L Phosphorus AST ALT Ammonia Albumin 03/01/22 03/01/22 03/02/22 16:15 23:57 05:18 WBC RBC Hgb Hct MCV MCH MCHC RDW Lymph % (Auto) Walsh % (Auto) Lymph # (Auto) Walsh # (Auto) Seg Neutrophils % Seg Neuts % (Manual) Lymphocytes % (Manual) Seg Neutrophils # Seg Neutrophils # Man Lymphocytes # (Manual) PT INR ABG pH ABG pO2 110.5 H ABG HCO3 33.0 H ABG O2 Saturation ABG Base Excess 7.4 H ABG Hemoglobin 8.6 L Oxyhemoglobin Sodium Potassium Chloride Carbon Dioxide BUN Creatinine Glucose POC Glucose 134 H 140 H Calcium Phosphorus AST ALT Ammonia Albumin 03/02/22 03/02/22 03/02/22 05:53 09:04 09:04 WBC 15.0 H RBC 3.00 L Hgb 9.7 L Hct 30.7 L MCV 102 H MCH MCHC RDW 16.6 H Lymph % (Auto) Walsh % (Auto) Lymph # (Auto) Walsh # (Auto) Seg Neutrophils % Seg Neuts % (Manual) Lymphocytes % (Manual) Seg Neutrophils # Seg Neutrophils # Man Lymphocytes # (Manual) PT INR ABG pH ABG pO2 ABG HCO3 ABG O2 Saturation ABG Base Excess ABG Hemoglobin Oxyhemoglobin Sodium Potassium Chloride Carbon Dioxide 31 H BUN Creatinine 0.6 L Glucose 157 H POC Glucose 158 H Calcium 7.9 L Phosphorus AST ALT Ammonia Albumin 03/02/22 03/02/22 03/02/22 11:36 16:25 23:17 WBC RBC Hgb Hct MCV MCH MCHC RDW Lymph % (Auto) Walsh % (Auto) Lymph # (Auto) Walsh # (Auto) Seg Neutrophils % Seg Neuts % (Manual) Lymphocytes % (Manual) Seg Neutrophils # Seg Neutrophils # Man Lymphocytes # (Manual) PT INR ABG pH ABG pO2 ABG HCO3 ABG O2 Saturation ABG Base Excess ABG Hemoglobin Oxyhemoglobin Sodium Potassium Chloride Carbon Dioxide BUN Creatinine Glucose POC Glucose 160 H 132 H 157 H Calcium Phosphorus AST ALT Ammonia Albumin 03/03/22 03/03/22 03/03/22 03:54 03:54 05:27 WBC 19.5 H RBC 2.79 L Hgb 9.0 L Hct 28.6 L MCV 102 H MCH MCHC RDW 16.2 H Lymph % (Auto) Walsh % (Auto) Lymph # (Auto) Walsh # (Auto) Seg Neutrophils % Seg Neuts % (Manual) 95.0 H Lymphocytes % (Manual) 3.0 L Seg Neutrophils # Seg Neutrophils # Man 18.5 H Lymphocytes # (Manual) 0.6 L PT INR ABG pH ABG pO2 ABG HCO3 ABG O2 Saturation ABG Base Excess ABG Hemoglobin Oxyhemoglobin Sodium Potassium Chloride Carbon Dioxide BUN Creatinine 0.6 L Glucose 130 H POC Glucose 149 H Calcium 8.1 L Phosphorus AST ALT Ammonia Albumin 03/03/22 03/03/22 03/04/22 11:13 17:30 00:02 WBC RBC Hgb Hct MCV MCH MCHC RDW Lymph % (Auto) Walsh % (Auto) Lymph # (Auto) Walsh # (Auto) Seg Neutrophils % Seg Neuts % (Manual) Lymphocytes % (Manual) Seg Neutrophils # Seg Neutrophils # Man Lymphocytes # (Manual) PT INR ABG pH ABG pO2 ABG HCO3 ABG O2 Saturation ABG Base Excess ABG Hemoglobin Oxyhemoglobin Sodium Potassium Chloride Carbon Dioxide BUN Creatinine Glucose POC Glucose 139 H 138 H 157 H Calcium Phosphorus AST ALT Ammonia Albumin 03/04/22 03/04/22 03/04/22 05:32 05:32 05:48 WBC 16.1 H RBC 2.81 L Hgb 9.3 L Hct 28.8 L MCV 102 H MCH 33 H MCHC RDW 16.7 H Lymph % (Auto) Walsh % (Auto) Lymph # (Auto) Walsh # (Auto) Seg Neutrophils % Seg Neuts % (Manual) Lymphocytes % (Manual) Seg Neutrophils # Seg Neutrophils # Man Lymphocytes # (Manual) PT INR ABG pH ABG pO2 ABG HCO3 ABG O2 Saturation ABG Base Excess ABG Hemoglobin Oxyhemoglobin Sodium Potassium Chloride Carbon Dioxide BUN Creatinine 0.7 L Glucose 135 H POC Glucose 145 H Calcium 8.3 L Phosphorus AST ALT Ammonia Albumin 03/04/22 03/04/22 03/05/22 11:34 16:29 00:28 WBC RBC Hgb Hct MCV MCH MCHC RDW Lymph % (Auto) Walsh % (Auto) Lymph # (Auto) Walsh # (Auto) Seg Neutrophils % Seg Neuts % (Manual) Lymphocytes % (Manual) Seg Neutrophils # Seg Neutrophils # Man Lymphocytes # (Manual) PT INR ABG pH ABG pO2 ABG HCO3 ABG O2 Saturation ABG Base Excess ABG Hemoglobin Oxyhemoglobin Sodium Potassium Chloride Carbon Dioxide BUN Creatinine Glucose POC Glucose 148 H 140 H 116 H Calcium Phosphorus AST ALT Ammonia Albumin 03/05/22 03/05/22 03/05/22 06:29 11:30 17:38 WBC RBC Hgb Hct MCV MCH MCHC RDW Lymph % (Auto) Walsh % (Auto) Lymph # (Auto) Walsh # (Auto) Seg Neutrophils % Seg Neuts % (Manual) Lymphocytes % (Manual) Seg Neutrophils # Seg Neutrophils # Man Lymphocytes # (Manual) PT INR ABG pH ABG pO2 ABG HCO3 ABG O2 Saturation ABG Base Excess ABG Hemoglobin Oxyhemoglobin Sodium Potassium Chloride Carbon Dioxide BUN Creatinine Glucose POC Glucose 114 H 114 H 117 H Calcium Phosphorus AST ALT Ammonia Albumin 03/06/22 03/06/22 03/06/22 04:17 04:17 06:06 WBC 13.4 H RBC 2.85 L Hgb 9.4 L Hct 29.0 L MCV 102 H MCH 33 H MCHC RDW 16.4 H Lymph % (Auto) Walsh % (Auto) Lymph # (Auto) Walsh # (Auto) Seg Neutrophils % Seg Neuts % (Manual) Lymphocytes % (Manual) Seg Neutrophils # Seg Neutrophils # Man Lymphocytes # (Manual) PT INR ABG pH ABG pO2 ABG HCO3 ABG O2 Saturation ABG Base Excess ABG Hemoglobin Oxyhemoglobin Sodium Potassium 3.5 L Chloride Carbon Dioxide 31 H BUN Creatinine 0.6 L Glucose 101 H POC Glucose 106 H Calcium 7.7 L Phosphorus 2.00 L AST ALT Ammonia Albumin 03/06/22 03/06/22 03/07/22 18:04 23:50 05:14 WBC RBC Hgb Hct MCV MCH MCHC RDW Lymph % (Auto) Walsh % (Auto) Lymph # (Auto) Walsh # (Auto) Seg Neutrophils % Seg Neuts % (Manual) Lymphocytes % (Manual) Seg Neutrophils # Seg Neutrophils # Man Lymphocytes # (Manual) PT INR ABG pH ABG pO2 ABG HCO3 ABG O2 Saturation ABG Base Excess ABG Hemoglobin Oxyhemoglobin Sodium Potassium Chloride Carbon Dioxide BUN Creatinine Glucose POC Glucose 108 H 115 H 116 H Calcium Phosphorus AST ALT Ammonia Albumin 03/07/22 03/07/22 03/08/22 11:42 18:13 04:34 WBC RBC 2.86 L Hgb 9.2 L Hct 29.3 L MCV 103 H MCH MCHC 31 L RDW 16.9 H Lymph % (Auto) Walsh % (Auto) Lymph # (Auto) Walsh # (Auto) Seg Neutrophils % Seg Neuts % (Manual) Lymphocytes % (Manual) Seg Neutrophils # Seg Neutrophils # Man Lymphocytes # (Manual) PT INR ABG pH ABG pO2 ABG HCO3 ABG O2 Saturation ABG Base Excess ABG Hemoglobin Oxyhemoglobin Sodium Potassium Chloride Carbon Dioxide BUN Creatinine Glucose POC Glucose 123 H 109 H Calcium Phosphorus AST ALT Ammonia Albumin 03/08/22 03/08/22 03/08/22 04:34 11:29 16:34 WBC RBC Hgb Hct MCV MCH MCHC RDW Lymph % (Auto) Walsh % (Auto) Lymph # (Auto) Walsh # (Auto) Seg Neutrophils % Seg Neuts % (Manual) Lymphocytes % (Manual) Seg Neutrophils # Seg Neutrophils # Man Lymphocytes # (Manual) PT INR ABG pH ABG pO2 ABG HCO3 ABG O2 Saturation ABG Base Excess ABG Hemoglobin Oxyhemoglobin Sodium Potassium Chloride Carbon Dioxide 33 H BUN Creatinine 0.5 L Glucose 109 H POC Glucose 117 H 109 H Calcium 7.6 L Phosphorus AST ALT Ammonia Albumin 03/08/22 03/09/22 03/10/22 23:56 11:15 03:57 WBC RBC 2.99 L Hgb 9.9 L Hct 30.3 L MCV 102 H MCH 33 H MCHC RDW 16.8 H Lymph % (Auto) 13.3 L Walsh % (Auto) 12.5 H Lymph # (Auto) Walsh # (Auto) 1.3 H Seg Neutrophils % 72.4 H Seg Neuts % (Manual) Lymphocytes % (Manual) Seg Neutrophils # Seg Neutrophils # Man Lymphocytes # (Manual) PT INR ABG pH ABG pO2 ABG HCO3 ABG O2 Saturation ABG Base Excess ABG Hemoglobin Oxyhemoglobin Sodium Potassium Chloride Carbon Dioxide BUN Creatinine Glucose POC Glucose 106 H 110 H Calcium Phosphorus AST ALT Ammonia Albumin 03/10/22 03/10/22 03/10/22 03:57 04:50 16:04 WBC RBC Hgb Hct MCV MCH MCHC RDW Lymph % (Auto) Walsh % (Auto) Lymph # (Auto) Walsh # (Auto) Seg Neutrophils % Seg Neuts % (Manual) Lymphocytes % (Manual) Seg Neutrophils # Seg Neutrophils # Man Lymphocytes # (Manual) PT INR ABG pH 7.465 H ABG pO2 ABG HCO3 31.9 H ABG O2 Saturation ABG Base Excess 7.3 H ABG Hemoglobin 11.0 L Oxyhemoglobin Sodium Potassium 3.4 L Chloride Carbon Dioxide BUN Creatinine 0.6 L Glucose POC Glucose 115 H Calcium 8.1 L Phosphorus AST ALT Ammonia Albumin 1.9 L 03/11/22 03/11/22 03/11/22 04:02 04:02 04:02 WBC 12.0 H RBC 2.81 L Hgb 9.2 L Hct 29.1 L MCV 103 H MCH 33 H MCHC RDW 17.5 H Lymph % (Auto) Walsh % (Auto) Lymph # (Auto) Walsh # (Auto) Seg Neutrophils % Seg Neuts % (Manual) Lymphocytes % (Manual) Seg Neutrophils # Seg Neutrophils # Man Lymphocytes # (Manual) PT 16.2 H INR 1.16 H ABG pH ABG pO2 ABG HCO3 ABG O2 Saturation ABG Base Excess ABG Hemoglobin Oxyhemoglobin Sodium Potassium Chloride Carbon Dioxide BUN Creatinine 0.5 L Glucose 104 H POC Glucose Calcium 7.9 L Phosphorus AST ALT Ammonia Albumin 03/11/22 03/11/22 03/11/22 05:10 11:07 16:32 WBC RBC Hgb Hct MCV MCH MCHC RDW Lymph % (Auto) Walsh % (Auto) Lymph # (Auto) Walsh # (Auto) Seg Neutrophils % Seg Neuts % (Manual) Lymphocytes % (Manual) Seg Neutrophils # Seg Neutrophils # Man Lymphocytes # (Manual) PT INR ABG pH 7.476 H ABG pO2 ABG HCO3 29.7 H ABG O2 Saturation ABG Base Excess 5.7 H ABG Hemoglobin 9.1 L Oxyhemoglobin Sodium Potassium Chloride Carbon Dioxide BUN Creatinine Glucose POC Glucose 108 H 121 H Calcium Phosphorus AST ALT Ammonia Albumin 03/12/22 03/13/22 03/13/22 05:51 06:08 12:02 WBC RBC 2.73 L Hgb 9.0 L Hct 27.5 L MCV 101 H MCH 33 H MCHC RDW 17.2 H Lymph % (Auto) Walsh % (Auto) Lymph # (Auto) Walsh # (Auto) Seg Neutrophils % Seg Neuts % (Manual) Lymphocytes % (Manual) Seg Neutrophils # Seg Neutrophils # Man Lymphocytes # (Manual) PT INR ABG pH ABG pO2 ABG HCO3 ABG O2 Saturation ABG Base Excess ABG Hemoglobin Oxyhemoglobin Sodium Potassium Chloride Carbon Dioxide BUN Creatinine Glucose POC Glucose 116 H 111 H Calcium Phosphorus AST ALT Ammonia Albumin 03/13/22 03/13/22 03/14/22 12:48 18:17 03:58 WBC RBC 2.97 L Hgb 9.7 L Hct 30.0 L MCV 101 H MCH 33 H MCHC RDW 16.7 H Lymph % (Auto) Walsh % (Auto) Lymph # (Auto) Walsh # (Auto) Seg Neutrophils % Seg Neuts % (Manual) Lymphocytes % (Manual) Seg Neutrophils # Seg Neutrophils # Man Lymphocytes # (Manual) PT INR ABG pH ABG pO2 ABG HCO3 ABG O2 Saturation ABG Base Excess ABG Hemoglobin Oxyhemoglobin Sodium Potassium Chloride Carbon Dioxide BUN Creatinine Glucose POC Glucose 125 H 114 H Calcium Phosphorus AST ALT Ammonia Albumin 03/14/22 03/14/22 03/14/22 03:58 13:01 16:41 WBC RBC Hgb Hct MCV MCH MCHC RDW Lymph % (Auto) Walsh % (Auto) Lymph # (Auto) Walsh # (Auto) Seg Neutrophils % Seg Neuts % (Manual) Lymphocytes % (Manual) Seg Neutrophils # Seg Neutrophils # Man Lymphocytes # (Manual) PT INR ABG pH ABG pO2 ABG HCO3 ABG O2 Saturation ABG Base Excess ABG Hemoglobin Oxyhemoglobin Sodium Potassium Chloride Carbon Dioxide BUN Creatinine 0.6 L Glucose POC Glucose 118 H 109 H Calcium 8.2 L Phosphorus AST ALT Ammonia Albumin 03/16/22 03/16/22 03/17/22 05:28 05:28 23:19 WBC RBC 2.81 L Hgb 9.1 L Hct 27.8 L MCV 99 H MCH MCHC RDW 17.0 H Lymph % (Auto) Walsh % (Auto) Lymph # (Auto) Walsh # (Auto) Seg Neutrophils % Seg Neuts % (Manual) Lymphocytes % (Manual) Seg Neutrophils # Seg Neutrophils # Man Lymphocytes # (Manual) PT INR ABG pH ABG pO2 ABG HCO3 ABG O2 Saturation ABG Base Excess ABG Hemoglobin Oxyhemoglobin Sodium Potassium Chloride Carbon Dioxide BUN Creatinine 0.5 L Glucose POC Glucose 113 H Calcium 8.2 L Phosphorus AST ALT Ammonia Albumin 03/20/22 03/20/22 03/20/22 04:09 04:09 17:22 WBC RBC 2.90 L Hgb 9.6 L Hct 28.9 L MCV 100 H MCH 33 H MCHC RDW 17.4 H Lymph % (Auto) Walsh % (Auto) Lymph # (Auto) Walsh # (Auto) Seg Neutrophils % Seg Neuts % (Manual) Lymphocytes % (Manual) Seg Neutrophils # Seg Neutrophils # Man Lymphocytes # (Manual) PT INR ABG pH ABG pO2 ABG HCO3 ABG O2 Saturation ABG Base Excess ABG Hemoglobin Oxyhemoglobin Sodium Potassium Chloride Carbon Dioxide BUN Creatinine 0.6 L Glucose POC Glucose 110 H Calcium 8.2 L Phosphorus AST ALT Ammonia Albumin 03/21/22 03/21/22 03/22/22 18:24 23:09 12:18 WBC RBC Hgb Hct MCV MCH MCHC RDW Lymph % (Auto) Walsh % (Auto) Lymph # (Auto) Walsh # (Auto) Seg Neutrophils % Seg Neuts % (Manual) Lymphocytes % (Manual) Seg Neutrophils # Seg Neutrophils # Man Lymphocytes # (Manual) PT INR ABG pH ABG pO2 ABG HCO3 ABG O2 Saturation ABG Base Excess ABG Hemoglobin Oxyhemoglobin Sodium Potassium Chloride Carbon Dioxide BUN Creatinine Glucose POC Glucose 110 H 107 H 106 H Calcium Phosphorus AST ALT Ammonia Albumin 03/22/22 03/23/22 03/23/22 14:25 00:21 11:31 WBC RBC Hgb Hct MCV MCH MCHC RDW Lymph % (Auto) Walsh % (Auto) Lymph # (Auto) Walsh # (Auto) Seg Neutrophils % Seg Neuts % (Manual) Lymphocytes % (Manual) Seg Neutrophils # Seg Neutrophils # Man Lymphocytes # (Manual) PT INR ABG pH ABG pO2 150.5 H ABG HCO3 32.4 H ABG O2 Saturation ABG Base Excess 6.2 H ABG Hemoglobin 11.4 L Oxyhemoglobin Sodium Potassium Chloride Carbon Dioxide BUN Creatinine Glucose POC Glucose 107 H 110 H Calcium Phosphorus AST ALT Ammonia Albumin 03/24/22 03/24/22 03/24/22 03:47 03:47 05:56 WBC RBC 3.18 L Hgb 10.1 L Hct 31.1 L MCV 98 H MCH MCHC RDW 17.4 H Lymph % (Auto) Walsh % (Auto) Lymph # (Auto) Walsh # (Auto) Seg Neutrophils % Seg Neuts % (Manual) Lymphocytes % (Manual) Seg Neutrophils # Seg Neutrophils # Man Lymphocytes # (Manual) PT INR ABG pH ABG pO2 ABG HCO3 ABG O2 Saturation ABG Base Excess ABG Hemoglobin Oxyhemoglobin Sodium Potassium Chloride Carbon Dioxide BUN Creatinine 0.5 L Glucose POC Glucose 107 H Calcium Phosphorus AST ALT Ammonia Albumin 03/24/22 03/25/22 03/25/22 11:15 00:14 11:24 WBC RBC Hgb Hct MCV MCH MCHC RDW Lymph % (Auto) Walsh % (Auto) Lymph # (Auto) Walsh # (Auto) Seg Neutrophils % Seg Neuts % (Manual) Lymphocytes % (Manual) Seg Neutrophils # Seg Neutrophils # Man Lymphocytes # (Manual) PT INR ABG pH ABG pO2 ABG HCO3 ABG O2 Saturation ABG Base Excess ABG Hemoglobin Oxyhemoglobin Sodium Potassium Chloride Carbon Dioxide BUN Creatinine Glucose POC Glucose 126 H 109 H 110 H Calcium Phosphorus AST ALT Ammonia Albumin 03/25/22 03/26/22 16:27 05:18 WBC RBC Hgb Hct MCV MCH MCHC RDW Lymph % (Auto) Walsh % (Auto) Lymph # (Auto) Walsh # (Auto) Seg Neutrophils % Seg Neuts % (Manual) Lymphocytes % (Manual) Seg Neutrophils # Seg Neutrophils # Man Lymphocytes # (Manual) PT INR ABG pH ABG pO2 ABG HCO3 ABG O2 Saturation ABG Base Excess ABG Hemoglobin Oxyhemoglobin Sodium Potassium Chloride Carbon Dioxide BUN Creatinine Glucose POC Glucose 123 H 114 H Calcium Phosphorus AST ALT Ammonia Albumin
[2022-03-26] MEDS: FAMOTIDINE 20 MG TAB FEEDTUBE SCH ×2 (09:53→21:43)
[2022-03-26] MEDS: SENNOSIDES/DOCUSATE SODIUM 8.6/50 MG TAB FEEDTUBE SCH ×2 (09:53→21:42)
[2022-03-26] MEDS: levETIRAcetam 500 MG/5 ML ORAL LIQD FEEDTUBE SCH ×2 (09:53→21:42)
--- NOTE | 2022-03-26 12:09 | Progress Note ---
<CODYCARSON ZiaRadha - Last Filed: 03/26/22 12:05> Assessment and Plan Assessment and plan: This is a 51-year-old male with HTN, seizure disorder, Down syndrome, HLD, partial blindness admitted with aspiration pneumonia, probable bronchogenic carcinoma, acute hypoxic respiratory failure and acute encephalopathy Neuro: h/o seizure disorder, Down syndrome, partial blindness -Reorientation as needed -Maintain sleep-wake cycle -aspiration/seizure precautions -As needed analgesia -CT head showed no acute abnormality -Continue Keppra Cardiac: h/o HTN, HLD -Cardiology consulted, appreciate recommendations -Blood pressure monitoring per protocol -PO Midodrine Respiratory: Acute hypoxic respiratory failure, ruled out bronchogenic carcinoma -CCM consulted, appreciate recommendations -Intubated on 02/24 with a 8.0 at 23 at the lips but extubated 02/28 -reintubated 02/28 with 8.0 OETT -Vent settings: AC rate 14, TV 360, PEEP 6, FO2 30% -See RT notes for titration -VAP bundle -SPO2 monitoring per protocol -02/18 CTA chest showed no evidence of pulmonary embolism, suspected bronchogenic carcinoma with associated obstruction of the right lower lobe proximal bronchus segment, 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 adenopathy and suspected to left lower lobe metastatic nodule -02/26 Bronch->mucous, no lesion noted -02/27 CT chest read: right mainstem bronchus patent with small amount of interval bronchial fluid which may be mucus (this may account for the appearance of the prior CTA chest fluid-filled airway rather than entering bronchial lesion), previously seen complete left lower lobe since related to bronchial occlusion has significantly improved, there is persistent compressive atelectasis in the right lower lung secondary to the pleural effusion, bilateral pleural effusions, right lung pneumonia -CT neck showed no acute changes -s/p steroids GI: Moderate protein calorie malnutrition -24 hours + 1421 mL -PPI -NTR consulted for tube feedings -BR: Senokot S : NAD -Monitor intake and output -Renally dose medications -Avoid nephrotoxic medications -Trend BMP ID: Aspiration PNA (resolved), sacral wound (POA) -WOCN consulted -Dressing changes per nursing -S/p Rocephin for 5 days (02/19-02/24) -Monitor WBC and temperature curve Endo: NAD -Avoid hypoglycemia -Accu-Cheks every 6 -Avoid hypoglycemia Heme: NAD -Trend CBC -Transfuse hemoglobin less than 7 -SCDs to BLE while in bed Dispo: -Awaiting guardianship for trach/peg The high probability of a clinically significant, sudden or life threatening deterioration of the [resp] system(s) required my full and direct attention, i ntervention and personal management. The aggregate critical care time was [60] minutes. This time is in addition to time spent performing reported procedures but includes the following: [x] Data Review and interpretation [x] Patient assessment and monitoring of vital signs [x] Documentation [x] Medication orders and management Disposition Plan: icu Total Time Spent with Patient (Minutes): 60 History Interval history: This is a 51-year-old male with HTN, seizure disorder, Down syndrome, HLD, and p artial blindness was a resident of the [facility] who presented to emergency department on 02/19 for evaluation of change in mental status. Of note patient was recently discharged a few weeks ago for a seizure disorder and UTI. Upon arrival to the emergency department patient was noted to be hypoxic with SPO2 in the 80s on a nonrebreather with difficulty breathing. Work-up in the emergency department revealed CXR which showed elevation of the right hemidiaphragm, right lower lung atelectasis and effusion with mild increased pulmonary vascularity but no pneumothorax and CT of the head did not show any acute abnormality. 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 Patient was admitted to the hospitalist service to the floor. Hospital course to date: 02/19/2022. Consult pulmonary for further evaluation and possible bronchoscopy. I suspect patient has component of aspiration pneumonia as well. We will obtain a speech therapy evaluation for swallowing and start empiric antibiotics. Continue O2 supplementation to maintain sats greater than 92%. 02/20/2022. Pulmonary feels that the abnormality seen on CT scan is highly unlikely for a mass given negative chest x-ray 1 month ago and no risk factors. Etiology is likely secondary to aspiration from possibly a foreign body most likely food with atelectasis of the right lower lobe. Bronchoscopy is needed in the case to evaluate to see if lung mass is there vs foreign body, but at this time not able to do because no identifiable person that is able to give consent. Continue aspiration precautions and continue speech therapy evaluation for swallowing. Keep n.p.o. for now 02/21/2022. Patient remains NPO. Consider DHT placement. Follow-up with speech therapy evaluation. Pulmonology to consider bronchoscopy if able to obtain consent. Continue IV antibiotics for aspiration pneumonia 02/22/2022. Patient remains NPO. Consider DHT placement. Follow-up with speech therapy evaluation. Pulmonology to consider bronchoscopy if able to obtain consent. Continue IV antibiotics for aspiration pneumonia 02/23/2022. DHT placed yesterday. TF initiated for nutritional support. Patient currently with strict NPO. Aspiration precautions. Pulmonology to consider bronchoscopy if able to obtain consent. Continue IV antibiotics for aspiration pneumonia 02/24: Patient was transferred to the ICU for further monitoring. This morning patient remained on high flow nasal cannula on 40 L/100% and despite repeated nasotracheal suctioning patient SPO2 remained in the 80s. Patient was placed on nonrebreather and SPO2 increased to upper 80s. Patient was subsequently intubated by anesthesia. Started on sedation. 02/25: Patient remains sedated on fentanyl, potassium and magnesium repleted. IV fluids and amlodipine discontinued. Possible bronchoscopy tomorrow. 02/26: Patient had a bronchoscopy today which showed mucus and no endobronchial lesions or masses. FiO2 was increased to 100 during and postprocedure weaning as tolerated. Repeat CXR is much improved after bronc. Given 1 L LR bolus due to hypotension. No acute events reported overnight. 02/27: Decreased PEEP, will repeat CT of chest. no acute changes overnight. 02/28: Patient was extubated today however had to be be intubated shortly after. Patient ETT looked mispositioned on x-ray and Dr. Alonzo did do a bedside bronc. Patient was briefly hypotensive and on Levophed postintubation however Levophed was quickly titrated off and patient did not require central line. No acute events reported overnight. Will obtain CT neck d/t difficulty intubating. Ethic committee consulted. 03/01: Overnight patient was hypotensive and started on IVF. Patient started on steroids as no air leak noted and hypotension and given 2 L LR 03/02: Overnight patient received bolus per RN report, no orders seen. Continue supportive care. 03/04: MAIDA overnight. Remains stable on the vent. Awaiting on desicion from ethics community for possible trach and PEG. Continue current supportive measures 03/05: MAIDA overnight. Awaiting on desicion from ethics community for possible trach and PEG. Midodrine held yesterday, HR improved. Continue current sup portive measures. Daily PSV trial as tolerated per CCM 03/06: Remains stable on the vent. Continue current supportive measures, daily PSV trial per CCM. Awaiting on desicion for possible trach and PEG. 03/07: MAIDA overnight, remains stable. Continue daily PSV trial as tolerated. Awaiting on desicion for possible trach and PEG. 03/08: Patient failed PSV trial this am due to tachycardia and increase RR. Continue supportive measures and daily PSV trial as tolerated. Possible discussion with ethics and [facility] on Thursday in regards to medical necessity, may need to consider two physician consent if no one is able to claim responsibility for this patient. 03/09: MAIDA overnight. Continue current supportive measures and daily PSV trail as tolerated. Awaiting on decision for possible trach and PEG, discussion with Ethics possibly tomorrow per [facility]. 03/10: no acute events overnight, PSV today. replete potassium. 03/11: No acute events reported overnight, patient failed PSV yesterday and will repeat today. Hospital to start guardianship process. 03/12: No acute events overnight. PSV today 03/13: Patient given 500ml normal saline and started on midodrine for hypotension. No acute events reported overnight. Failed pressure support again this morning. 03/14: No acute events reported overnight, patient blood pressure seems better therefore midodrine discontinued. RT placed on CPAP need lasted for couple hours. Will remove summers 03/15: Midodrine was restarted yesterday evening for hypotension, Summers catheter not removed due to sacral ulcer and history of retention. Unable to crush Flomax and patient will not tolerate doxazosin given hypotension. Given LR bolus this morning. If blood pressure continues to be borderline after bolus, we will adjust management as needed. CPAP as tolerated 03/16: No acute events reported overnight, patient placed on CPAP trial this morning which he failed. 03/17: RT attempted PSV which he failed again today. No acute events reported overnight. 03/18: Awaiting ethic committee's decision on Trach/PEG. Patient tolerated PSV trial for over 3 hrs today, continue daily PSV trial as tolerated. 03/19: MAIDA overnight. Continue current supportive measures. Daily PSV trial as tolerated. Awaiting on desicion for possible trach and PEG. 03/20: MAIDA overnight. Daily PSV trial as tolerated. Awaiting decision on guardianship for trach and PEG. 03/21: Remains stable, condition unchanged. Continue supportive measures and daily PSV trial as tolerated. 03/22: MAIDA overnight. Continue current supportive measures. Daily PSV trial as tolerated 03/23: MAIDA overnight, continue supportive measures and daily PSV trial as tolerated. 03/24: Condition unchanged. Still waiting on Ethics' decision for possible trach/Peg. Continue supportive measures and daily PSV trial as tolerated. 03/25: PSV attempt today, does open eyes to stimuli, no acute events overnight. 03/26: Yesterday evening Summers catheter was removed as he was due to be changed, condom cath placed. Overnight patient had good urine output and per RN repeated bladder scans showed less than 200 mL of urine. We will continue to monitor urine output. RT to attempt PSV Hospitalist Physical - Constitutional Vitals: Temp Pulse Resp BP Pulse Ox 99.6 F 95 H 17 97/49 95 03/26/22 11:18 03/26/22 11:41 03/26/22 11:41 03/26/22 10:30 03/26/22 11:41 General appearance: Present: no acute distress, well-nourished - EENT Eyes: Present: PERRL, EOM intact ENT: poor dentition - Neck Neck: Present: normal ROM - Respiratory Respiratory effort: normal Respiratory: bilateral: rhonchi - Cardiovascular Rhythm: regular Heart Sounds: Present: S1 & S2. Absent: systolic murmur, diastolic murmur - Extremities Extremities: no ischemia, pulses intact, pulses symmetrical, No edema, normal temperature, normal color Peripheral Pulses: within normal limits - Abdominal General gastrointestinal: soft, non-tender, non-distended, normal bowel sounds - Integumentary Integumentary: Present: warm, dry - Psychiatric Psychiatric: other - Neurologic Neurologic: other (opens eyes to verbal and tactile stimuli) - Allied Health Allied health notes reviewed: nursing, RT, social work HEART Score - HEART Score Troponin: Troponin T < 0.010 ng/mL (0.00-0.029) 02/18/22 21:02 Results - Labs CBC & Chem 7: 03/24/22 03:47 03/24/22 03:47 Labs: Laboratory Last Values WBC 6.6 K/mm3 (4.5-11.0) 03/24/22 03:47 RBC 3.18 M/mm3 (3.65-5.03) L 03/24/22 03:47 Hgb 10.1 gm/dl (11.8-15.2) L 03/24/22 03:47 Hct 31.1 % (35.5-45.6) L 03/24/22 03:47 MCV 98 fl (84-94) H 03/24/22 03:47 MCH 32 pg (28-32) 03/24/22 03:47 MCHC 33 % (32-34) 03/24/22 03:47 RDW 17.4 % (13.2-15.2) H 03/24/22 03:47 Plt Count 356 K/mm3 (140-440) 03/24/22 03:47 Lymph % (Auto) 13.3 % (13.4-35.0) L 03/10/22 03:57 [place] % (Auto) 12.5 % (0.0-7.3) H 03/10/22 03:57 Eos % (Auto) 1.4 % (0.0-4.3) 03/10/22 03:57 Baso % (Auto) 0.4 % (0.0-1.8) 03/10/22 03:57 Lymph # (Auto) 1.3 K/mm3 (1.2-5.4) 03/10/22 03:57 [place] # (Auto) 1.3 K/mm3 (0.0-0.8) H 03/10/22 03:57 Eos # (Auto) 0.1 K/mm3 (0.0-0.4) 03/10/22 03:57 Baso # (Auto) 0.0 K/mm3 (0.0-0.1) 03/10/22 03:57 Add Manual Diff Complete 03/03/22 03:54 Total Counted 100 03/03/22 03:54 Seg Neutrophils % 72.4 % (40.0-70.0) H 03/10/22 03:57 Seg Neuts % (Manual) 95.0 % (40.0-70.0) H 03/03/22 03:54 Band Neutrophils % 0 % 03/03/22 03:54 Lymphocytes % (Manual) 3.0 % (13.4-35.0) L 03/03/22 03:54 Reactive Lymphs % (Man) 0 % 03/03/22 03:54 Monocytes % (Manual) 2.0 % (0.0-7.3) 03/03/22 03:54 Eosinophils % (Manual) 0 % (0.0-4.3) 03/03/22 03:54 Basophils % (Manual) 0 % (0.0-1.8) 03/03/22 03:54 Metamyelocytes % 0 % 03/03/22 03:54 Myelocytes % 0 % 03/03/22 03:54 Promyelocytes % 0 % 03/03/22 03:54 Blast Cells % 0 % 03/03/22 03:54 Nucleated RBC % Not Reportable 03/03/22 03:54 Seg Neutrophils # 7.4 K/mm3 (1.8-7.7) 03/10/22 03:57 Seg Neutrophils # Man 18.5 K/mm3 (1.8-7.7) H 03/03/22 03:54 Band Neutrophils # 0.0 K/mm3 03/03/22 03:54 Lymphocytes # (Manual) 0.6 K/mm3 (1.2-5.4) L 03/03/22 03:54 Abs React Lymphs (Man) 0.0 K/mm3 03/03/22 03:54 Monocytes # (Manual) 0.4 K/mm3 (0.0-0.8) 03/03/22 03:54 Eosinophils # (Manual) 0.0 K/mm3 (0.0-0.4) 03/03/22 03:54 Basophils # (Manual) 0.0 K/mm3 (0.0-0.1) 03/03/22 03:54 Metamyelocytes # 0.0 K/mm3 03/03/22 03:54 Myelocytes # 0.0 K/mm3 03/03/22 03:54 Promyelocytes # 0.0 K/mm3 03/03/22 03:54 Blast Cells # 0.0 K/mm3 03/03/22 03:54 WBC Morphology Not Reportable 03/03/22 03:54 Hypersegmented Neuts Not Reportable 03/03/22 03:54 Hyposegmented Neuts Not Reportable 03/03/22 03:54 Hypogranular Neuts Not Reportable 03/03/22 03:54 Smudge Cells Not Reportable 03/03/22 03:54 Toxic Granulation Not Reportable 03/03/22 03:54 Toxic Vacuolation Not Reportable 03/03/22 03:54 Dohle Bodies Not Reportable 03/03/22 03:54 Pelger-Huet Anomaly Not Reportable 03/03/22 03:54 Lakshmi Rods Not Reportable 03/03/22 03:54 Platelet Estimate Consistent w auto 03/03/22 03:54 Clumped Platelets Not Reportable 03/03/22 03:54 Plt Clumps, EDTA Not Reportable 03/03/22 03:54 Large Platelets Not Reportable 03/03/22 03:54 Giant Platelets Not Reportable 03/03/22 03:54 Platelet Satelliting Not Reportable 03/03/22 03:54 Plt Morphology Comment Not Reportable 03/03/22 03:54 RBC Morphology Not Reportable 03/03/22 03:54 Dimorphic RBCs Not Reportable 03/03/22 03:54 Polychromasia Not Reportable 03/03/22 03:54 Hypochromasia Not Reportable 03/03/22 03:54 Poikilocytosis Not Reportable 03/03/22 03:54 Anisocytosis 1+ 03/03/22 03:54 Microcytosis Not Reportable 03/03/22 03:54 Macrocytosis Not Reportable 03/03/22 03:54 Spherocytes Not Reportable 03/03/22 03:54 Pappenheimer Bodies Not Reportable 03/03/22 03:54 Sickle Cells Not Reportable 03/03/22 03:54 Target Cells Not Reportable 03/03/22 03:54 Tear Drop Cells Not Reportable 03/03/22 03:54 Ovalocytes Not Reportable 03/03/22 03:54 Helmet Cells Not Reportable 03/03/22 03:54 [place] Bodies Not Reportable 03/03/22 03:54 [place] Rings Not Reportable 03/03/22 03:54 [place] Cells Not Reportable 03/03/22 03:54 Bite Cells Not Reportable 03/03/22 03:54 Crenated Cell Not Reportable 03/03/22 03:54 Elliptocytes Not Reportable 03/03/22 03:54 Acanthocytes (Spur) Not Reportable 03/03/22 03:54 Rouleaux Not Reportable 03/03/22 03:54 Hemoglobin C Crystals Not Reportable 03/03/22 03:54 Schistocytes Not Reportable 03/03/22 03:54 Malaria parasites Not Reportable 03/03/22 03:54 Cash Bodies Not Reportable 03/03/22 03:54 Hem Pathologist Commnt No 03/03/22 03:54 PT 16.2 Sec. (12.2-14.9) H 03/11/22 04:02 INR 1.16 (0.87-1.13) H 03/11/22 04:02 ABG pH 7.392 pH Units (7.350-7.450) 03/22/22 14:25 ABG pCO2 54.4 mm Hg 03/22/22 14:25 ABG pO2 150.5 mm Hg (80.0-90.0) H 03/22/22 14:25 ABG HCO3 32.4 mmol/L (20.0-26.0) H 03/22/22 14:25 ABG O2 Saturation 98.8 % (95.0-99.0) 03/22/22 14:25 ABG O2 Content 15.8 (0.0-44) 03/22/22 14:25 ABG Base Excess 6.2 mmol/L (-2.0-3.0) H 03/22/22 14:25 ABG Hemoglobin 11.4 gm/dl (14.0-18.0) L 03/22/22 14:25 ABG Carboxyhemoglobin 1.6 % (0.0-5.0) 03/22/22 14:25 ABG Methemoglobin 0.6 % (0.0-1.5) 03/22/22 14:25 Oxyhemoglobin 96.6 % (95.0-99.0) 03/22/22 14:25 FiO2 30 % 03/22/22 14:25 Sodium 139 mmol/L (137-145) 03/24/22 03:47 Potassium 4.3 mmol/L (3.6-5.0) 03/24/22 03:47 Chloride 101.7 mmol/L (98-107) 03/24/22 03:47 Carbon Dioxide 30 mmol/L (22-30) 03/24/22 03:47 Anion Gap 12 mmol/L 03/24/22 03:47 BUN 20 mg/dL (9-20) 03/24/22 03:47 Creatinine 0.5 mg/dL (0.8-1.3) L 03/24/22 03:47 Estimated GFR > 60 ml/min 03/24/22 03:47 BUN/Creatinine Ratio 40 % 03/24/22 03:47 Glucose 99 mg/dL (75-100) 03/24/22 03:47 POC Glucose 114 mg/dL (70-105) H 03/26/22 05:18 Lactic Acid 1.20 mmol/L (0.7-2.0) 02/18/22 21:02 Calcium 8.5 mg/dL (8.4-10.2) 03/24/22 03:47 Phosphorus 3.50 mg/dL (2.5-4.5) 03/20/22 04:09 Magnesium 2.00 mg/dL (1.7-2.3) 03/20/22 04:09 Total Bilirubin 0.30 mg/dL (0.1-1.2) 03/10/22 03:57 AST 17 units/L (5-40) 03/10/22 03:57 ALT 18 units/L (7-56) 03/10/22 03:57 Alkaline Phosphatase 89 units/L (35-129) 03/10/22 03:57 Ammonia 14.0 umol/L (25-60) L 02/18/22 23:22 Troponin T < 0.010 ng/mL (0.00-0.029) 02/18/22 21:02 Total Protein 6.6 g/dL (6.3-8.2) 03/10/22 03:57 Albumin 1.9 g/dL (3.9-5) L 03/10/22 03:57 Albumin/Globulin Ratio 0.4 % 03/10/22 03:57 Urine Color Dark yellow (Yellow) 02/18/22 Unknown Urine Turbidity Clear (Clear) 02/18/22 Unknown Urine pH 7.0 (5.0-7.0) 02/18/22 Unknown Ur Specific [place] 1.015 (1.003-1.030) 02/18/22 Unknown Urine Protein <15 mg/dl mg/dL (Negative) 02/18/22 Unknown Urine Glucose (UA) Negative mg/dL (Negative) 02/18/22 Unknown Urine Ketones Negative mg/dL (Negative) 02/18/22 Unknown Urine Blood Trace (Negative) 02/18/22 Unknown Urine Nitrite Negative (Negative) 02/18/22 Unknown Urine Bilirubin Negative (Negative) 02/18/22 Unknown Urine Urobilinogen < 2.0 mg/dL (<2.0) 02/18/22 Unknown Ur Leukocyte Esterase Negative (Negative) 02/18/22 Unknown Urine WBC (Auto) 2.0 /HPF (0.0-6.0) 02/18/22 Unknown Urine RBC (Auto) 9.0 /HPF (0.0-6.0) 02/18/22 Unknown Urine Mucus Few /HPF 02/18/22 Unknown Urine Opiates Screen Negative 02/18/22 Unknown Urine Methadone Screen Negative 02/18/22 Unknown Ur Barbiturates Screen Negative 02/18/22 Unknown Ur Phencyclidine Scrn Negative 02/18/22 Unknown Ur Amphetamines Screen Negative 02/18/22 Unknown U Benzodiazepines Scrn Negative 02/18/22 Unknown Urine Cocaine Screen Negative 02/18/22 Unknown U Marijuana (THC) Screen Negative 02/18/22 Unknown Drugs of Abuse Note Disclamer 02/18/22 Unknown Plasma/Serum Alcohol < 0.01 % (0-0.07) 02/18/22 21:02 Summers/IV: Voiding Method Condom Catheter Active Medications - Current Medications Current Medications: Generic Name Dose Route Start Last Admin Trade Name Freq PRN Reason Stop Dose Admin Acetaminophen 650 mg 03/03/22 09:00 Acetaminophen 325 Mg/10.15 Ml Oral Liqd Unit Dose FEEDTUBE Q4H PRN Pain, Mild (1-3); TEMP > 100.4 Albuterol 2.5 mg 03/12/22 20:00 03/26/22 07:26 Albuterol 2.5 Mg/3 Ml Nebu IH 2.5 mg Q6HRT LAZARUS Administration Famotidine 20 mg 02/25/22 10:00 03/26/22 09:53 Famotidine 20 Mg Tab FEEDTUBE 20 mg BID LAZARUS Administration Heparin Sodium (Porcine) 5,000 unit 02/19/22 06:00 03/26/22 05:22 Heparin 5,000 Unit/1 Ml Vial SUB-Q 5,000 unit Q8HR LAZARUS Administration Hydrophilic Ointment 1 applic 02/24/22 15:05 Lip Therapy Vaseline TP Q2HR PRN Dry Lips Levetiracetam 500 mg 02/25/22 22:00 03/26/22 09:53 Levetiracetam 500 Mg/5 Ml Oral Liqd FEEDTUBE 500 mg BID LAZARUS Administration Levothyroxine Sodium 25 mcg 02/26/22 06:00 03/26/22 05:22 Levothyroxine 25 Mcg Tab FEEDTUBE 25 mcg QAM@0600 LAZARUS Administration Magnesium Hydroxide 30 ml 02/19/22 02:02 Magnesium Hydroxide (Mom) Oral Liqd Udc PO Q4H PRN Constipation Midodrine 2.5 mg 03/19/22 12:00 03/26/22 11:55 Midodrine 2.5 Mg Tab FEEDTUBE 2.5 mg TID@0800,1200,1600 LAZARUS Administration Multi-Ingred Cream/Lotion/Oil/Oint 1 applic 02/24/22 15:05 Mineral Oil/Petrolatum, White Ophth Oint 3.5 Gm OU Q4HR PRN Dry Eye(s) Ondansetron HCl 4 mg 02/19/22 02:02 Ondansetron 4 Mg/2 Ml Inj IV Q8H PRN Nausea And Vomiting Pravastatin Sodium 40 mg 02/25/22 22:00 03/25/22 22:18 Pravastatin 40 Mg Tab FEEDTUBE 40 mg QHS LAZARUS Administration Senna/Docusate Sodium 1 tab 02/24/22 22:00 03/26/22 09:53 Sennosides/Docusate Sodium 8.6/50 Mg Tab FEEDTUBE 1 tab BID LAZARUS Administration Sodium Chloride 10 ml 02/19/22 10:00 03/26/22 09:53 Sodium Chloride 0.9% 10 Ml Flush Syringe IV 10 ml BID LAZARUS Administration Sodium Chloride 10 ml 02/19/22 02:02 03/03/22 14:21 Sodium Chloride 0.9% 10 Ml Flush Syringe IV 10 ml PRN PRN Administration LINE FLUSH Nutrition/Malnutrition Assess - Dietary Evaluation Nutrition/Malnutrition Findings: Nutrition Notes Start: 02/19/22 14:29 Freq: Status: Active Protocol: Document 03/21/22 15:43 IVAN (Rec: 03/21/22 15:45 IVAN [id number]) Nutrition Notes Initial or Follow up Reassessment Current Diagnosis Hypertension,Respiratory Failure,Hyperlipidemia Other Pertinent Diagnosis Asp pneu, acute encephalopathy , seizure d/o, partial blindness Current Diet TF - Vital AF 1.2 at 50ml/hr Labs/Tests Reviewed Pertinent Medications Reviewed Height 5 ft 3 in Weight 63.2 kg [place] Body Weight (kg) 56.36 BMI 24.7 Weight Status Appropriate Subjective/Other Information Pt remains on vent support; still awaiting decision on guardianship for trach/PEG placement. Pt continues to tolerate TF at goal rate. Last BM was 03/18 per RN verbal report. Percent of energy/protein needs met: 90% energy 100% pro Burn Absent Trauma Absent #1 Nutrition Diagnosis Inadequate oral intake Diagnosis Progress(for reassessment Continues documentation) Is patient on ventilator? Yes Is Patient Ambulatory and/or Out of Bed No REE-([facility]-confined to bed) [phone] Calculation Used for Recommendations [facility] Additional Notes Pro needs 1.2-2g/k-126g/ day Fluid needs 1ml/kcal Nutrition Intervention Nutrition Support: Continue Vital AF 1.2 at 50ml/ hr with 75ml water flush q4h. Kcal 1,440 Protein (gm) 90 Carbohydrates (gm) 133 Fat (gm) 65 Fluid (mL) 973 Fiber (gm) 6 Goal #1 TF tolerance Goal #2 TF to meet at least 75% energy and pro needs Follow-Up By: 03/28/22 Additional Comments F/U: stable TF, trach/PEG placement, vent status, wt, BM <SILVIA BUCHANAN - Last Filed: 04/01/22 10:49> History Interval history: I saw and evaluated the patient. I agree with the findings and the plan of care as documented in the Nurse Practitioner's~note, with the following corrections and additions. Hospitalist Physical - Constitutional Vitals: Temp Pulse Resp BP Pulse Ox 97.9 F 71 14 121/68 97 04/01/22 07:09 04/01/22 07:51 04/01/22 07:51 04/01/22 07:43 04/01/22 07:43 HEART Score - HEART Score Troponin: Troponin T < 0.010 ng/mL (0.00-0.029) 02/18/22 21:02 Results - Labs CBC & Chem 7: 03/31/22 03:56 03/31/22 03:56 Labs: Laboratory Last Values WBC 9.7 K/mm3 (4.5-11.0) 03/31/22 03:56 RBC 3.08 M/mm3 (3.65-5.03) L 03/31/22 03:56 Hgb 9.5 gm/dl (11.8-15.2) L 03/31/22 03:56 Hct 30.1 % (35.5-45.6) L 03/31/22 03:56 MCV 98 fl (84-94) H 03/31/22 03:56 MCH 31 pg (28-32) 03/31/22 03:56 MCHC 32 % (32-34) 03/31/22 03:56 RDW 17.7 % (13.2-15.2) H 03/31/22 03:56 Plt Count 331 K/mm3 (140-440) 03/31/22 03:56 Lymph % (Auto) 7.5 % (13.4-35.0) L 03/28/22 04:06 [place] % (Auto) 10.5 % (0.0-7.3) H 03/28/22 04:06 Eos % (Auto) 0.9 % (0.0-4.3) 03/28/22 04:06 Baso % (Auto) 0.4 % (0.0-1.8) 03/28/22 04:06 Lymph # (Auto) 1.1 K/mm3 (1.2-5.4) L 03/28/22 04:06 [place] # (Auto) 1.5 K/mm3 (0.0-0.8) H 03/28/22 04:06 Eos # (Auto) 0.1 K/mm3 (0.0-0.4) 03/28/22 04:06 Baso # (Auto) 0.1 K/mm3 (0.0-0.1) 03/28/22 04:06 Add Manual Diff Complete 03/03/22 03:54 Total Counted 100 03/03/22 03:54 Seg Neutrophils % 80.7 % (40.0-70.0) H 03/28/22 04:06 Seg Neuts % (Manual) 95.0 % (40.0-70.0) H 03/03/22 03:54 Band Neutrophils % 0 % 03/03/22 03:54 Lymphocytes % (Manual) 3.0 % (13.4-35.0) L 03/03/22 03:54 Reactive Lymphs % (Man) 0 % 03/03/22 03:54 Monocytes % (Manual) 2.0 % (0.0-7.3) 03/03/22 03:54 Eosinophils % (Manual) 0 % (0.0-4.3) 03/03/22 03:54 Basophils % (Manual) 0 % (0.0-1.8) 03/03/22 03:54 Metamyelocytes % 0 % 03/03/22 03:54 Myelocytes % 0 % 03/03/22 03:54 Promyelocytes % 0 % 03/03/22 03:54 Blast Cells % 0 % 03/03/22 03:54 Nucleated RBC % Not Reportable 03/03/22 03:54 Seg Neutrophils # 11.4 K/mm3 (1.8-7.7) H 03/28/22 04:06 Seg Neutrophils # Man 18.5 K/mm3 (1.8-7.7) H 03/03/22 03:54 Band Neutrophils # 0.0 K/mm3 03/03/22 03:54 Lymphocytes # (Manual) 0.6 K/mm3 (1.2-5.4) L 03/03/22 03:54 Abs React Lymphs (Man) 0.0 K/mm3 03/03/22 03:54 Monocytes # (Manual) 0.4 K/mm3 (0.0-0.8) 03/03/22 03:54 Eosinophils # (Manual) 0.0 K/mm3 (0.0-0.4) 03/03/22 03:54 Basophils # (Manual) 0.0 K/mm3 (0.0-0.1) 03/03/22 03:54 Metamyelocytes # 0.0 K/mm3 03/03/22 03:54 Myelocytes # 0.0 K/mm3 03/03/22 03:54 Promyelocytes # 0.0 K/mm3 03/03/22 03:54 Blast Cells # 0.0 K/mm3 03/03/22 03:54 WBC Morphology Not Reportable 03/03/22 03:54 Hypersegmented Neuts Not Reportable 03/03/22 03:54 Hyposegmented Neuts Not Reportable 03/03/22 03:54 Hypogranular Neuts Not Reportable 03/03/22 03:54 Smudge Cells Not Reportable 03/03/22 03:54 Toxic Granulation Not Reportable 03/03/22 03:54 Toxic Vacuolation Not Reportable 03/03/22 03:54 Dohle Bodies Not Reportable 03/03/22 03:54 Pelger-Huet Anomaly Not Reportable 03/03/22 03:54 Lakshmi Rods Not Reportable 03/03/22 03:54 Platelet Estimate Consistent w auto 03/03/22 03:54 Clumped Platelets Not Reportable 03/03/22 03:54 Plt Clumps, EDTA Not Reportable 03/03/22 03:54 Large Platelets Not Reportable 03/03/22 03:54 Giant Platelets Not Reportable 03/03/22 03:54 Platelet Satelliting Not Reportable 03/03/22 03:54 Plt Morphology Comment Not Reportable 03/03/22 03:54 RBC Morphology Not Reportable 03/03/22 03:54 Dimorphic RBCs Not Reportable 03/03/22 03:54 Polychromasia Not Reportable 03/03/22 03:54 Hypochromasia Not Reportable 03/03/22 03:54 Poikilocytosis Not Reportable 03/03/22 03:54 Anisocytosis 1+ 03/03/22 03:54 Microcytosis Not Reportable 03/03/22 03:54 Macrocytosis Not Reportable 03/03/22 03:54 Spherocytes Not Reportable 03/03/22 03:54 Pappenheimer Bodies Not Reportable 03/03/22 03:54 Sickle Cells Not Reportable 03/03/22 03:54 Target Cells Not Reportable 03/03/22 03:54 Tear Drop Cells Not Reportable 03/03/22 03:54 Ovalocytes Not Reportable 03/03/22 03:54 Helmet Cells Not Reportable 03/03/22 03:54 [place] Bodies Not Reportable 03/03/22 03:54 [place] Rings Not Reportable 03/03/22 03:54 [place] Cells Not Reportable 03/03/22 03:54 Bite Cells Not Reportable 03/03/22 03:54 Crenated Cell Not Reportable 03/03/22 03:54 Elliptocytes Not Reportable 03/03/22 03:54 Acanthocytes (Spur) Not Reportable 03/03/22 03:54 Rouleaux Not Reportable 03/03/22 03:54 Hemoglobin C Crystals Not Reportable 03/03/22 03:54 Schistocytes Not Reportable 03/03/22 03:54 Malaria parasites Not Reportable 03/03/22 03:54 Cash Bodies Not Reportable 03/03/22 03:54 Hem Pathologist Commnt No 03/03/22 03:54 PT 16.2 Sec. (12.2-14.9) H 03/11/22 04:02 INR 1.16 (0.87-1.13) H 03/11/22 04:02 ABG pH 7.392 pH Units (7.350-7.450) 03/22/22 14:25 ABG pCO2 54.4 mm Hg 03/22/22 14:25 ABG pO2 150.5 mm Hg (80.0-90.0) H 03/22/22 14:25 ABG HCO3 32.4 mmol/L (20.0-26.0) H 03/22/22 14:25 ABG O2 Saturation 98.8 % (95.0-99.0) 03/22/22 14:25 ABG O2 Content 15.8 (0.0-44) 03/22/22 14:25 ABG Base Excess 6.2 mmol/L (-2.0-3.0) H 03/22/22 14:25 ABG Hemoglobin 11.4 gm/dl (14.0-18.0) L 03/22/22 14:25 ABG Carboxyhemoglobin 1.6 % (0.0-5.0) 03/22/22 14:25 ABG Methemoglobin 0.6 % (0.0-1.5) 03/22/22 14:25 Oxyhemoglobin 96.6 % (95.0-99.0) 03/22/22 14:25 FiO2 30 % 03/22/22 14:25 Sodium 135 mmol/L (137-145) L 03/31/22 03:56 Potassium 4.5 mmol/L (3.6-5.0) 03/31/22 03:56 Chloride 97.4 mmol/L (98-107) L 03/31/22 03:56 Carbon Dioxide 31 mmol/L (22-30) H 03/31/22 03:56 Anion Gap 11 mmol/L 03/31/22 03:56 BUN 18 mg/dL (9-20) 03/31/22 03:56 Creatinine 0.5 mg/dL (0.8-1.3) L 03/31/22 03:56 Estimated GFR > 60 ml/min 03/31/22 03:56 BUN/Creatinine Ratio 36 % 03/31/22 03:56 Glucose 102 mg/dL (75-100) H 03/31/22 03:56 POC Glucose 118 mg/dL (70-105) H 04/01/22 00:09 Lactic Acid 1.20 mmol/L (0.7-2.0) 02/18/22 21:02 Calcium 8.8 mg/dL (8.4-10.2) 03/31/22 03:56 Phosphorus 3.50 mg/dL (2.5-4.5) 03/20/22 04:09 Magnesium 2.00 mg/dL (1.7-2.3) 03/20/22 04:09 Total Bilirubin 0.30 mg/dL (0.1-1.2) 03/10/22 03:57 AST 17 units/L (5-40) 03/10/22 03:57 ALT 18 units/L (7-56) 03/10/22 03:57 Alkaline Phosphatase 89 units/L (35-129) 03/10/22 03:57 Ammonia 14.0 umol/L (25-60) L 02/18/22 23:22 Troponin T < 0.010 ng/mL (0.00-0.029) 02/18/22 21:02 Total Protein 6.6 g/dL (6.3-8.2) 03/10/22 03:57 Albumin 1.9 g/dL (3.9-5) L 03/10/22 03:57 Albumin/Globulin Ratio 0.4 % 03/10/22 03:57 Urine Color Yellow (Yellow) 03/27/22 08:36 Urine Turbidity Cloudy (Clear) 03/27/22 08:36 Urine pH 7.0 (5.0-7.0) 02/18/22 Unknown Ur Specific [place] 1.015 (1.003-1.030) 02/18/22 Unknown Specific [place] (Man) 1.020 (1.003-1.030) 03/27/22 08:36 Urine Protein <15 mg/dl mg/dL (Negative) 02/18/22 Unknown Ur Protein (Man) 1+ mg/dL (Negative) 03/27/22 08:36 Urine Glucose (UA) Negative mg/dL (Negative) 02/18/22 Unknown Urine Ketones Negative mg/dL (Negative) 02/18/22 Unknown Ur Ketones (Man) Negative (Negative) 03/27/22 08:36 Urine Blood Trace (Negative) 02/18/22 Unknown Urine Nitrite Negative (Negative) 02/18/22 Unknown Ur Nitrite (Man) Negative (Negative) 03/27/22 08:36 Ur Reducing Substances Not Reportable 03/27/22 08:36 Urine Bilirubin Negative (Negative) 02/18/22 Unknown Urine Bilirubin (Man) Negative (Negative) 03/27/22 08:36 Urine Ictotest Not Reportable 03/27/22 08:36 Urine Urobilinogen < 2.0 mg/dL (<2.0) 02/18/22 Unknown Ur Leukocyte Esterase Negative (Negative) 02/18/22 Unknown Leukocyte Esterase (Man) Moderate (Negative) 03/27/22 08:36 Urine WBC (Auto) > 182.0 /HPF (0.0-6.0) H 03/27/22 08:36 Urine RBC (Auto) 9.0 /HPF (0.0-6.0) 03/27/22 08:36 U Epithel Cells (Auto) < 1.0 /HPF (0-13.0) 03/27/22 08:36 Urine RBC (Manual) 1+ (Negative) 03/27/22 08:36 Urine Mucus Few /HPF 03/27/22 08:36 Urine Yeast (Budding) 2+ /HPF 03/27/22 08:36 Urine Opiates Screen Negative 02/18/22 Unknown Urine Methadone Screen Negative 02/18/22 Unknown Ur Barbiturates Screen Negative 02/18/22 Unknown Ur Phencyclidine Scrn Negative 02/18/22 Unknown Ur Amphetamines Screen Negative 02/18/22 Unknown U Benzodiazepines Scrn Negative 02/18/22 Unknown Urine Cocaine Screen Negative 02/18/22 Unknown U Marijuana (THC) Screen Negative 02/18/22 Unknown Drugs of Abuse Note Disclamer 02/18/22 Unknown Plasma/Serum Alcohol < 0.01 % (0-0.07) 02/18/22 21:02 Summers/IV: Voiding Method Indwelling Catheter Active Medications - Current Medications Current Medications: Generic Name Dose Route Start Last Admin Trade Name Freq PRN Reason Stop Dose Admin Acetaminophen 650 mg 03/03/22 09:00 Acetaminophen 325 Mg/10.15 Ml Oral Liqd Unit Dose FEEDTUBE Q4H PRN Pain, Mild (1-3); TEMP > 100.4 Albuterol 2.5 mg 03/12/22 20:00 04/01/22 07:50 Albuterol 2.5 Mg/3 Ml Nebu IH 2.5 mg Q6HRT LAZARUS Administration Famotidine 20 mg 02/25/22 10:00 04/01/22 09:20 Famotidine 20 Mg Tab FEEDTUBE 20 mg BID LAZARUS Administration Heparin Sodium (Porcine) 5,000 unit 02/19/22 06:00 04/01/22 05:22 Heparin 5,000 Unit/1 Ml Vial SUB-Q 5,000 unit Q8HR LAZARUS Administration Levetiracetam 500 mg 02/25/22 22:00 04/01/22 09:20 Levetiracetam 500 Mg/5 Ml Oral Liqd FEEDTUBE 500 mg BID LAZARUS Administration Levothyroxine Sodium 25 mcg 02/26/22 06:00 04/01/22 05:22 Levothyroxine 25 Mcg Tab FEEDTUBE 25 mcg QAM@0600 LAZARUS Administration Magnesium Hydroxide 30 ml 02/19/22 02:02 Magnesium Hydroxide (Mom) Oral Liqd Udc PO Q4H PRN Constipation Midodrine 2.5 mg 03/19/22 12:00 04/01/22 09:20 Midodrine 2.5 Mg Tab FEEDTUBE 2.5 mg TID@0800,1200,1600 LAZARUS Administration Multi-Ingred Cream/Lotion/Oil/Oint 1 applic 02/24/22 15:05 Mineral Oil/Petrolatum, White Ophth Oint 3.5 Gm OU Q4HR PRN Dry Eye(s) Ondansetron HCl 4 mg 02/19/22 02:02 Ondansetron 4 Mg/2 Ml Inj IV Q8H PRN Nausea And Vomiting Pravastatin Sodium 40 mg 02/25/22 22:00 03/31/22 21:01 Pravastatin 40 Mg Tab FEEDTUBE 40 mg QHS LAZARUS Administration Senna/Docusate Sodium 1 tab 02/24/22 22:00 03/31/22 23:35 Sennosides/Docusate Sodium 8.6/50 Mg Tab FEEDTUBE 1 tab BID LAZARUS Administration Sodium Chloride 10 ml 02/19/22 10:00 04/01/22 09:20 Sodium Chloride 0.9% 10 Ml Flush Syringe IV 10 ml BID LAZARUS Administration Sodium Chloride 10 ml 02/19/22 02:02 03/03/22 14:21 Sodium Chloride 0.9% 10 Ml Flush Syringe IV 10 ml PRN PRN Administration LINE FLUSH Nutrition/Malnutrition Assess - Dietary Evaluation Nutrition/Malnutrition Findings: Nutrition Notes Start: 02/19/22 14:29 Freq: Status: Active Protocol: Document 03/31/22 14:18 IVAN (Rec: 03/31/22 14:23 [facility] [id number]) Nutrition Notes Initial or Follow up Reassessment Current Diagnosis Hypertension,Respiratory Failure,Hyperlipidemia Other Pertinent Diagnosis Asp pneu, acute encephalopathy , seizure d/o, partial blindness Current Diet TF - Promote at 65ml/hr Labs/Tests Na 135 CO2 - 31 Pertinent Medications Reviewed Height 5 ft 3 in Weight 63.2 kg [place] Body Weight (kg) 56.36 BMI 24.7 Subjective/Other Information Pt remains on vent support; still awaiting decision on guardianship for trach/PEG placement. Observed Promote infusing at 50ml/hr; RN informed of goal rate. BM x 1 on yesterday. Percent of energy/protein needs met: 75% energy 99% pro Burn Absent Trauma Absent #1 Nutrition Diagnosis Inadequate oral intake Diagnosis Progress(for reassessment Continues documentation) Is patient on ventilator? Yes Is Patient Ambulatory and/or Out of Bed No REE-([place]-St. Jeor-confined to bed) [phone] Calculation Used for Recommendations [place]-St Jeor Additional Notes Pro needs 1.2-2g/k-126g/ day Fluid needs 1ml/kcal Nutrition Intervention Nutrition Support: Continue Promote to goal rate of 65ml/hr. Provide 50ml water flush q4h. Kcal 1,560 Protein (gm) 98 Carbohydrates (gm) 203 Fat (gm) 41 Fluid (mL) 1,309 Fiber (gm) 0 Goal #1 TF tolerance Goal #2 TF to meet 75%-100% energy and pro needs Goal #3 Wound healing Follow-Up By: 04/04/22 Additional Comments F/U: TF goal rate/tolerance
--- NOTE | 2022-03-26 17:49 | Progress Note ---
Assessment and Plan Imp: 1. Aspiration pneumonitis 2. Atelectasis RLL 2/2 above 3. Acute respiratory failure, hypoxia 4. Down syndrome 5. Macrocytic anemia Rec: 1. Cont. current ventilator settings; await Trach/PEG 2. TFs, GI/DVT PPx 3. No family present; Complex decision-making Subjective Date of service: 03/09/22 Principal diagnosis: f/u Acute respiratory failure Interval history: No events. Eyes open, not following commands. Hx not obtainable. On Vent. Objective Vital Signs - 12hr 03/26/22 03/26/22 03/26/22 06:00 07:00 07:06 Temperature 98.5 F Pulse Rate 96 H 95 H Pulse Rate [ Anterior Bilateral Throughout] Pulse Rate [ Bilateral Throughout] Pulse Rate [ From Monitor] Respiratory 17 13 Rate Respiratory Rate [Anterior Bilateral Throughout] Respiratory Rate [Bilateral Throughout] Blood Pressure 103/48 104/51 O2 Sat by Pulse 94 94 Oximetry 03/26/22 03/26/22 03/26/22 07:18 07:20 07:26 Temperature Pulse Rate 95 H 102 H Pulse Rate [ Anterior Bilateral Throughout] Pulse Rate [ Bilateral Throughout] Pulse Rate [ 95 H From Monitor] Respiratory Rate Respiratory Rate [Anterior Bilateral Throughout] Respiratory Rate [Bilateral Throughout] Blood Pressure 104/51 O2 Sat by Pulse 95 94 Oximetry 03/26/22 03/26/22 03/26/22 07:30 08:00 09:00 Temperature Pulse Rate 98 H 92 H Pulse Rate [ 101 H Anterior Bilateral Throughout] Pulse Rate [ 103 H Bilateral Throughout] Pulse Rate [ From Monitor] Respiratory 17 15 Rate Respiratory 17 Rate [Anterior Bilateral Throughout] Respiratory 16 Rate [Bilateral Throughout] Blood Pressure 93/51 111/85 O2 Sat by Pulse 95 97 Oximetry 03/26/22 03/26/22 03/26/22 10:00 10:30 11:00 Temperature Pulse Rate 97 H 95 H 92 H Pulse Rate [ Anterior Bilateral Throughout] Pulse Rate [ Bilateral Throughout] Pulse Rate [ From Monitor] Respiratory 15 14 14 Rate Respiratory Rate [Anterior Bilateral Throughout] Respiratory Rate [Bilateral Throughout] Blood Pressure 88/41 97/49 97/49 O2 Sat by Pulse 93 94 Oximetry 03/26/22 03/26/22 03/26/22 11:18 11:26 11:28 Temperature 99.6 F Pulse Rate 90 Pulse Rate [ Anterior Bilateral Throughout] Pulse Rate [ Bilateral Throughout] Pulse Rate [ 90 From Monitor] Respiratory Rate Respiratory Rate [Anterior Bilateral Throughout] Respiratory Rate [Bilateral Throughout] Blood Pressure O2 Sat by Pulse 95 Oximetry 03/26/22 03/26/22 03/26/22 11:41 12:00 12:31 Temperature Pulse Rate 95 H 93 H 93 H Pulse Rate [ Anterior Bilateral Throughout] Pulse Rate [ Bilateral Throughout] Pulse Rate [ From Monitor] Respiratory 17 14 16 Rate Respiratory Rate [Anterior Bilateral Throughout] Respiratory Rate [Bilateral Throughout] Blood Pressure 108/62 108/62 O2 Sat by Pulse 95 94 95 Oximetry 03/26/22 03/26/22 03/26/22 12:35 13:00 13:31 Temperature Pulse Rate 91 H 94 H 95 H Pulse Rate [ Anterior Bilateral Throughout] Pulse Rate [ Bilateral Throughout] Pulse Rate [ From Monitor] Respiratory 16 18 14 Rate Respiratory Rate [Anterior Bilateral Throughout] Respiratory Rate [Bilateral Throughout] Blood Pressure 108/62 115/63 115/63 O2 Sat by Pulse 98 95 96 Oximetry 03/26/22 03/26/22 03/26/22 13:37 14:00 14:31 Temperature Pulse Rate 97 H 94 H Pulse Rate [ 98 H Anterior Bilateral Throughout] Pulse Rate [ 99 H Bilateral Throughout] Pulse Rate [ From Monitor] Respiratory 15 14 Rate Respiratory 21 Rate [Anterior Bilateral Throughout] Respiratory 20 Rate [Bilateral Throughout] Blood Pressure 106/58 106/58 O2 Sat by Pulse 91 89 Oximetry 03/26/22 03/26/22 03/26/22 15:00 15:27 15:31 Temperature Pulse Rate 86 87 84 Pulse Rate [ Anterior Bilateral Throughout] Pulse Rate [ Bilateral Throughout] Pulse Rate [ From Monitor] Respiratory 14 14 Rate Respiratory Rate [Anterior Bilateral Throughout] Respiratory Rate [Bilateral Throughout] Blood Pressure 92/42 92/42 92/42 O2 Sat by Pulse 91 96 96 Oximetry 03/26/22 03/26/22 03/26/22 16:00 16:10 16:11 Temperature Pulse Rate 90 91 H Pulse Rate [ Anterior Bilateral Throughout] Pulse Rate [ Bilateral Throughout] Pulse Rate [ 91 H From Monitor] Respiratory 11 L Rate Respiratory Rate [Anterior Bilateral Throughout] Respiratory Rate [Bilateral Throughout] Blood Pressure 94/49 O2 Sat by Pulse 95 95 Oximetry 03/26/22 16:14 Temperature 97.9 F Pulse Rate Pulse Rate [ Anterior Bilateral Throughout] Pulse Rate [ Bilateral Throughout] Pulse Rate [ From Monitor] Respiratory Rate Respiratory Rate [Anterior Bilateral Throughout] Respiratory Rate [Bilateral Throughout] Blood Pressure O2 Sat by Pulse Oximetry Constitutional: alert, other (critically ill on ventilator) Eyes: non-icteric ENT: oropharynx moist Neck: supple Effort: normal Ascultation: Bilateral: diminished breath sounds, rhonchi Cardiovascular: regular rate and rhythm (no mrg) Gastrointestinal: normoactive bowel sounds, soft, non-tender (on o2 vest in place), non-distended Integumentary: normal Extremities: no cyanosis, no edema Neurologic: other (awake) Psychiatric: other (unable to assess) CBC and BMP: 03/24/22 03:47 03/24/22 03:47 ABG, PT/INR, D-dimer: ABG ABG pH 7.392 pH Units (7.350-7.450) 03/22/22 14:25 ABG pCO2 54.4 mm Hg 03/22/22 14:25 ABG pO2 150.5 mm Hg (80.0-90.0) H 03/22/22 14:25 ABG O2 Saturation 98.8 % (95.0-99.0) 03/22/22 14:25 PT/INR, D-dimer PT 16.2 Sec. (12.2-14.9) H 03/11/22 04:02 INR 1.16 (0.87-1.13) H 03/11/22 04:02 Abnormal lab findings: Abnormal Labs 02/18/22 02/18/22 02/18/22 19:34 21:02 21:02 WBC RBC Hgb Hct MCV 101 H MCH 34 H MCHC RDW 16.1 H Lymph % (Auto) Garza % (Auto) 12.4 H Lymph # (Auto) Garza # (Auto) 1.2 H Seg Neutrophils % 73.0 H Seg Neuts % (Manual) Lymphocytes % (Manual) Seg Neutrophils # Seg Neutrophils # Man Lymphocytes # (Manual) PT 16.9 H INR 1.20 H ABG pH ABG pO2 ABG HCO3 ABG O2 Saturation ABG Base Excess ABG Hemoglobin Oxyhemoglobin Sodium Potassium Chloride Carbon Dioxide BUN Creatinine Glucose POC Glucose 116 H Calcium Phosphorus AST ALT Ammonia Albumin 02/18/22 02/18/22 02/18/22 21:02 22:45 23:22 WBC RBC Hgb Hct MCV MCH MCHC RDW Lymph % (Auto) Garza % (Auto) Lymph # (Auto) Garza # (Auto) Seg Neutrophils % Seg Neuts % (Manual) Lymphocytes % (Manual) Seg Neutrophils # Seg Neutrophils # Man Lymphocytes # (Manual) PT INR ABG pH ABG pO2 55.6 L ABG HCO3 28.4 H ABG O2 Saturation 91.5 L ABG Base Excess 3.8 H ABG Hemoglobin 13.2 L Oxyhemoglobin 89.6 L Sodium Potassium 5.1 H Chloride Carbon Dioxide BUN Creatinine Glucose 102 H POC Glucose Calcium Phosphorus AST 48 H ALT 64 H Ammonia 14.0 L Albumin 2.7 L 02/20/22 02/20/22 02/23/22 04:59 04:59 06:29 WBC 11.4 H RBC Hgb Hct MCV 103 H MCH 33 H MCHC RDW 16.5 H Lymph % (Auto) 5.5 L Garza % (Auto) 12.1 H Lymph # (Auto) 0.6 L Garza # (Auto) 1.4 H Seg Neutrophils % 81.4 H Seg Neuts % (Manual) Lymphocytes % (Manual) Seg Neutrophils # 9.2 H Seg Neutrophils # Man Lymphocytes # (Manual) PT INR ABG pH ABG pO2 ABG HCO3 ABG O2 Saturation ABG Base Excess ABG Hemoglobin Oxyhemoglobin Sodium Potassium Chloride Carbon Dioxide BUN Creatinine Glucose POC Glucose 113 H Calcium 8.2 L Phosphorus AST ALT Ammonia Albumin 02/23/22 02/23/22 02/24/22 11:22 16:10 00:02 WBC RBC Hgb Hct MCV MCH MCHC RDW Lymph % (Auto) Garza % (Auto) Lymph # (Auto) Garza # (Auto) Seg Neutrophils % Seg Neuts % (Manual) Lymphocytes % (Manual) Seg Neutrophils # Seg Neutrophils # Man Lymphocytes # (Manual) PT INR ABG pH ABG pO2 ABG HCO3 ABG O2 Saturation ABG Base Excess ABG Hemoglobin Oxyhemoglobin Sodium Potassium Chloride Carbon Dioxide BUN Creatinine Glucose POC Glucose 108 H 115 H 109 H Calcium Phosphorus AST ALT Ammonia Albumin 02/24/22 02/24/22 02/24/22 11:05 11:05 13:20 WBC RBC 3.55 L Hgb Hct MCV 100 H MCH 34 H MCHC RDW 15.6 H Lymph % (Auto) Garza % (Auto) Lymph # (Auto) Garza # (Auto) Seg Neutrophils % Seg Neuts % (Manual) Lymphocytes % (Manual) Seg Neutrophils # Seg Neutrophils # Man Lymphocytes # (Manual) PT INR ABG pH ABG pO2 ABG HCO3 ABG O2 Saturation ABG Base Excess ABG Hemoglobin Oxyhemoglobin Sodium 146 H Potassium 3.2 L D Chloride 108.4 H Carbon Dioxide BUN Creatinine 0.5 L Glucose POC Glucose 111 H Calcium 7.9 L Phosphorus 2.20 L AST ALT Ammonia Albumin 02/24/22 02/24/22 02/24/22 16:30 17:03 20:25 WBC RBC Hgb Hct MCV MCH MCHC RDW Lymph % (Auto) Garza % (Auto) Lymph # (Auto) Garza # (Auto) Seg Neutrophils % Seg Neuts % (Manual) Lymphocytes % (Manual) Seg Neutrophils # Seg Neutrophils # Man Lymphocytes # (Manual) PT INR ABG pH 7.319 L ABG pO2 65.3 L ABG HCO3 31.3 H ABG O2 Saturation 92.2 L ABG Base Excess 3.8 H ABG Hemoglobin 12.0 L Oxyhemoglobin 90.3 L Sodium Potassium Chloride 107.9 H Carbon Dioxide BUN 8 L Creatinine 0.4 L Glucose POC Glucose 108 H Calcium 7.6 L Phosphorus 4.60 H D AST ALT Ammonia Albumin 02/25/22 02/25/22 02/25/22 04:12 04:12 05:05 WBC RBC 3.07 L Hgb 10.2 L Hct 31.5 L MCV 103 H MCH 33 H MCHC RDW 15.6 H Lymph % (Auto) Garza % (Auto) Lymph # (Auto) Garza # (Auto) Seg Neutrophils % Seg Neuts % (Manual) Lymphocytes % (Manual) Seg Neutrophils # Seg Neutrophils # Man Lymphocytes # (Manual) PT INR ABG pH ABG pO2 ABG HCO3 32.5 H ABG O2 Saturation ABG Base Excess 5.6 H ABG Hemoglobin 10.8 L Oxyhemoglobin 94.8 L Sodium Potassium 3.5 L Chloride 107.7 H Carbon Dioxide BUN Creatinine 0.5 L Glucose POC Glucose Calcium 7.0 L Phosphorus AST ALT Ammonia Albumin 02/25/22 02/25/22 02/26/22 12:05 18:33 00:07 WBC RBC Hgb Hct MCV MCH MCHC RDW Lymph % (Auto) Garza % (Auto) Lymph # (Auto) Garza # (Auto) Seg Neutrophils % Seg Neuts % (Manual) Lymphocytes % (Manual) Seg Neutrophils # Seg Neutrophils # Man Lymphocytes # (Manual) PT INR ABG pH ABG pO2 ABG HCO3 ABG O2 Saturation ABG Base Excess ABG Hemoglobin Oxyhemoglobin Sodium Potassium Chloride Carbon Dioxide BUN Creatinine Glucose POC Glucose 127 H 125 H 114 H Calcium Phosphorus AST ALT Ammonia Albumin 02/26/22 02/26/22 02/26/22 03:30 04:42 11:34 WBC RBC Hgb Hct MCV MCH MCHC RDW Lymph % (Auto) Garza % (Auto) Lymph # (Auto) Garza # (Auto) Seg Neutrophils % Seg Neuts % (Manual) Lymphocytes % (Manual) Seg Neutrophils # Seg Neutrophils # Man Lymphocytes # (Manual) PT INR ABG pH ABG pO2 143.2 H ABG HCO3 33.2 H ABG O2 Saturation ABG Base Excess 6.5 H ABG Hemoglobin 9.4 L Oxyhemoglobin Sodium Potassium Chloride Carbon Dioxide 32 H BUN Creatinine 0.7 L Glucose POC Glucose 114 H Calcium 8.0 L Phosphorus AST ALT Ammonia Albumin 02/26/22 02/26/22 02/27/22 18:17 23:37 04:19 WBC 13.7 H RBC 2.78 L Hgb 9.3 L Hct 28.5 L MCV 103 H MCH 33 H MCHC RDW 16.3 H Lymph % (Auto) Garza % (Auto) Lymph # (Auto) Garza # (Auto) Seg Neutrophils % Seg Neuts % (Manual) Lymphocytes % (Manual) Seg Neutrophils # Seg Neutrophils # Man Lymphocytes # (Manual) PT INR ABG pH ABG pO2 ABG HCO3 ABG O2 Saturation ABG Base Excess ABG Hemoglobin Oxyhemoglobin Sodium Potassium Chloride Carbon Dioxide BUN Creatinine Glucose POC Glucose 111 H 117 H Calcium Phosphorus AST ALT Ammonia Albumin 02/27/22 02/27/22 02/27/22 04:19 04:35 05:27 WBC RBC Hgb Hct MCV MCH MCHC RDW Lymph % (Auto) Garza % (Auto) Lymph # (Auto) Garza # (Auto) Seg Neutrophils % Seg Neuts % (Manual) Lymphocytes % (Manual) Seg Neutrophils # Seg Neutrophils # Man Lymphocytes # (Manual) PT INR ABG pH ABG pO2 96.3 H ABG HCO3 34.9 H ABG O2 Saturation ABG Base Excess 8.1 H ABG Hemoglobin Oxyhemoglobin Sodium Potassium Chloride Carbon Dioxide 31 H BUN Creatinine 0.6 L Glucose 107 H POC Glucose 133 H Calcium 7.8 L Phosphorus AST ALT Ammonia Albumin 02/27/22 02/27/22 02/28/22 11:15 23:35 03:38 WBC 13.3 H RBC 3.05 L Hgb 10.2 L Hct 30.7 L MCV 101 H MCH 33 H MCHC RDW 16.1 H Lymph % (Auto) Garza % (Auto) Lymph # (Auto) Garza # (Auto) Seg Neutrophils % Seg Neuts % (Manual) Lymphocytes % (Manual) Seg Neutrophils # Seg Neutrophils # Man Lymphocytes # (Manual) PT INR ABG pH ABG pO2 ABG HCO3 ABG O2 Saturation ABG Base Excess ABG Hemoglobin Oxyhemoglobin Sodium Potassium Chloride Carbon Dioxide BUN Creatinine Glucose POC Glucose 129 H 122 H Calcium Phosphorus AST ALT Ammonia Albumin 02/28/22 02/28/22 02/28/22 04:50 05:30 09:30 WBC RBC Hgb Hct MCV MCH MCHC RDW Lymph % (Auto) Garza % (Auto) Lymph # (Auto) Garza # (Auto) Seg Neutrophils % Seg Neuts % (Manual) Lymphocytes % (Manual) Seg Neutrophils # Seg Neutrophils # Man Lymphocytes # (Manual) PT INR ABG pH 7.451 H 7.488 H ABG pO2 77.0 L ABG HCO3 37.1 H 34.6 H ABG O2 Saturation ABG Base Excess 11.5 H 10.1 H ABG Hemoglobin 10.1 L 10.0 L Oxyhemoglobin Sodium Potassium Chloride Carbon Dioxide BUN Creatinine Glucose POC Glucose 121 H Calcium Phosphorus AST ALT Ammonia Albumin 02/28/22 02/28/22 03/01/22 11:36 23:07 04:27 WBC 12.5 H RBC 2.85 L Hgb 9.5 L Hct 28.6 L MCV 101 H MCH 33 H MCHC RDW 15.7 H Lymph % (Auto) Garza % (Auto) Lymph # (Auto) Garza # (Auto) Seg Neutrophils % Seg Neuts % (Manual) Lymphocytes % (Manual) Seg Neutrophils # Seg Neutrophils # Man Lymphocytes # (Manual) PT INR ABG pH ABG pO2 ABG HCO3 ABG O2 Saturation ABG Base Excess ABG Hemoglobin Oxyhemoglobin Sodium Potassium Chloride Carbon Dioxide BUN Creatinine Glucose POC Glucose 112 H 107 H Calcium Phosphorus AST ALT Ammonia Albumin 03/01/22 03/01/22 03/01/22 04:27 05:05 11:29 WBC RBC Hgb Hct MCV MCH MCHC RDW Lymph % (Auto) Garza % (Auto) Lymph # (Auto) Garza # (Auto) Seg Neutrophils % Seg Neuts % (Manual) Lymphocytes % (Manual) Seg Neutrophils # Seg Neutrophils # Man Lymphocytes # (Manual) PT INR ABG pH ABG pO2 ABG HCO3 ABG O2 Saturation ABG Base Excess ABG Hemoglobin Oxyhemoglobin Sodium 147 H D Potassium Chloride Carbon Dioxide 34 H BUN Creatinine 0.6 L Glucose 128 H POC Glucose 119 H 121 H Calcium 7.9 L Phosphorus AST ALT Ammonia Albumin 03/01/22 03/01/22 03/02/22 16:15 23:57 05:18 WBC RBC Hgb Hct MCV MCH MCHC RDW Lymph % (Auto) Garza % (Auto) Lymph # (Auto) Garza # (Auto) Seg Neutrophils % Seg Neuts % (Manual) Lymphocytes % (Manual) Seg Neutrophils # Seg Neutrophils # Man Lymphocytes # (Manual) PT INR ABG pH ABG pO2 110.5 H ABG HCO3 33.0 H ABG O2 Saturation ABG Base Excess 7.4 H ABG Hemoglobin 8.6 L Oxyhemoglobin Sodium Potassium Chloride Carbon Dioxide BUN Creatinine Glucose POC Glucose 134 H 140 H Calcium Phosphorus AST ALT Ammonia Albumin 03/02/22 03/02/22 03/02/22 05:53 09:04 09:04 WBC 15.0 H RBC 3.00 L Hgb 9.7 L Hct 30.7 L MCV 102 H MCH MCHC RDW 16.6 H Lymph % (Auto) Garza % (Auto) Lymph # (Auto) Garza # (Auto) Seg Neutrophils % Seg Neuts % (Manual) Lymphocytes % (Manual) Seg Neutrophils # Seg Neutrophils # Man Lymphocytes # (Manual) PT INR ABG pH ABG pO2 ABG HCO3 ABG O2 Saturation ABG Base Excess ABG Hemoglobin Oxyhemoglobin Sodium Potassium Chloride Carbon Dioxide 31 H BUN Creatinine 0.6 L Glucose 157 H POC Glucose 158 H Calcium 7.9 L Phosphorus AST ALT Ammonia Albumin 03/02/22 03/02/22 03/02/22 11:36 16:25 23:17 WBC RBC Hgb Hct MCV MCH MCHC RDW Lymph % (Auto) Garza % (Auto) Lymph # (Auto) Garza # (Auto) Seg Neutrophils % Seg Neuts % (Manual) Lymphocytes % (Manual) Seg Neutrophils # Seg Neutrophils # Man Lymphocytes # (Manual) PT INR ABG pH ABG pO2 ABG HCO3 ABG O2 Saturation ABG Base Excess ABG Hemoglobin Oxyhemoglobin Sodium Potassium Chloride Carbon Dioxide BUN Creatinine Glucose POC Glucose 160 H 132 H 157 H Calcium Phosphorus AST ALT Ammonia Albumin 03/03/22 03/03/22 03/03/22 03:54 03:54 05:27 WBC 19.5 H RBC 2.79 L Hgb 9.0 L Hct 28.6 L MCV 102 H MCH MCHC RDW 16.2 H Lymph % (Auto) Garza % (Auto) Lymph # (Auto) Garza # (Auto) Seg Neutrophils % Seg Neuts % (Manual) 95.0 H Lymphocytes % (Manual) 3.0 L Seg Neutrophils # Seg Neutrophils # Man 18.5 H Lymphocytes # (Manual) 0.6 L PT INR ABG pH ABG pO2 ABG HCO3 ABG O2 Saturation ABG Base Excess ABG Hemoglobin Oxyhemoglobin Sodium Potassium Chloride Carbon Dioxide BUN Creatinine 0.6 L Glucose 130 H POC Glucose 149 H Calcium 8.1 L Phosphorus AST ALT Ammonia Albumin 03/03/22 03/03/22 03/04/22 11:13 17:30 00:02 WBC RBC Hgb Hct MCV MCH MCHC RDW Lymph % (Auto) Garza % (Auto) Lymph # (Auto) Garza # (Auto) Seg Neutrophils % Seg Neuts % (Manual) Lymphocytes % (Manual) Seg Neutrophils # Seg Neutrophils # Man Lymphocytes # (Manual) PT INR ABG pH ABG pO2 ABG HCO3 ABG O2 Saturation ABG Base Excess ABG Hemoglobin Oxyhemoglobin Sodium Potassium Chloride Carbon Dioxide BUN Creatinine Glucose POC Glucose 139 H 138 H 157 H Calcium Phosphorus AST ALT Ammonia Albumin 03/04/22 03/04/22 03/04/22 05:32 05:32 05:48 WBC 16.1 H RBC 2.81 L Hgb 9.3 L Hct 28.8 L MCV 102 H MCH 33 H MCHC RDW 16.7 H Lymph % (Auto) Garza % (Auto) Lymph # (Auto) Garza # (Auto) Seg Neutrophils % Seg Neuts % (Manual) Lymphocytes % (Manual) Seg Neutrophils # Seg Neutrophils # Man Lymphocytes # (Manual) PT INR ABG pH ABG pO2 ABG HCO3 ABG O2 Saturation ABG Base Excess ABG Hemoglobin Oxyhemoglobin Sodium Potassium Chloride Carbon Dioxide BUN Creatinine 0.7 L Glucose 135 H POC Glucose 145 H Calcium 8.3 L Phosphorus AST ALT Ammonia Albumin 03/04/22 03/04/22 03/05/22 11:34 16:29 00:28 WBC RBC Hgb Hct MCV MCH MCHC RDW Lymph % (Auto) Garza % (Auto) Lymph # (Auto) Garza # (Auto) Seg Neutrophils % Seg Neuts % (Manual) Lymphocytes % (Manual) Seg Neutrophils # Seg Neutrophils # Man Lymphocytes # (Manual) PT INR ABG pH ABG pO2 ABG HCO3 ABG O2 Saturation ABG Base Excess ABG Hemoglobin Oxyhemoglobin Sodium Potassium Chloride Carbon Dioxide BUN Creatinine Glucose POC Glucose 148 H 140 H 116 H Calcium Phosphorus AST ALT Ammonia Albumin 03/05/22 03/05/22 03/05/22 06:29 11:30 17:38 WBC RBC Hgb Hct MCV MCH MCHC RDW Lymph % (Auto) Garza % (Auto) Lymph # (Auto) Garza # (Auto) Seg Neutrophils % Seg Neuts % (Manual) Lymphocytes % (Manual) Seg Neutrophils # Seg Neutrophils # Man Lymphocytes # (Manual) PT INR ABG pH ABG pO2 ABG HCO3 ABG O2 Saturation ABG Base Excess ABG Hemoglobin Oxyhemoglobin Sodium Potassium Chloride Carbon Dioxide BUN Creatinine Glucose POC Glucose 114 H 114 H 117 H Calcium Phosphorus AST ALT Ammonia Albumin 03/06/22 03/06/22 03/06/22 04:17 04:17 06:06 WBC 13.4 H RBC 2.85 L Hgb 9.4 L Hct 29.0 L MCV 102 H MCH 33 H MCHC RDW 16.4 H Lymph % (Auto) Garza % (Auto) Lymph # (Auto) Garza # (Auto) Seg Neutrophils % Seg Neuts % (Manual) Lymphocytes % (Manual) Seg Neutrophils # Seg Neutrophils # Man Lymphocytes # (Manual) PT INR ABG pH ABG pO2 ABG HCO3 ABG O2 Saturation ABG Base Excess ABG Hemoglobin Oxyhemoglobin Sodium Potassium 3.5 L Chloride Carbon Dioxide 31 H BUN Creatinine 0.6 L Glucose 101 H POC Glucose 106 H Calcium 7.7 L Phosphorus 2.00 L AST ALT Ammonia Albumin 03/06/22 03/06/22 03/07/22 18:04 23:50 05:14 WBC RBC Hgb Hct MCV MCH MCHC RDW Lymph % (Auto) Garza % (Auto) Lymph # (Auto) Garza # (Auto) Seg Neutrophils % Seg Neuts % (Manual) Lymphocytes % (Manual) Seg Neutrophils # Seg Neutrophils # Man Lymphocytes # (Manual) PT INR ABG pH ABG pO2 ABG HCO3 ABG O2 Saturation ABG Base Excess ABG Hemoglobin Oxyhemoglobin Sodium Potassium Chloride Carbon Dioxide BUN Creatinine Glucose POC Glucose 108 H 115 H 116 H Calcium Phosphorus AST ALT Ammonia Albumin 03/07/22 03/07/22 03/08/22 11:42 18:13 04:34 WBC RBC 2.86 L Hgb 9.2 L Hct 29.3 L MCV 103 H MCH MCHC 31 L RDW 16.9 H Lymph % (Auto) Garza % (Auto) Lymph # (Auto) Garza # (Auto) Seg Neutrophils % Seg Neuts % (Manual) Lymphocytes % (Manual) Seg Neutrophils # Seg Neutrophils # Man Lymphocytes # (Manual) PT INR ABG pH ABG pO2 ABG HCO3 ABG O2 Saturation ABG Base Excess ABG Hemoglobin Oxyhemoglobin Sodium Potassium Chloride Carbon Dioxide BUN Creatinine Glucose POC Glucose 123 H 109 H Calcium Phosphorus AST ALT Ammonia Albumin 03/08/22 03/08/22 03/08/22 04:34 11:29 16:34 WBC RBC Hgb Hct MCV MCH MCHC RDW Lymph % (Auto) Garza % (Auto) Lymph # (Auto) Garza # (Auto) Seg Neutrophils % Seg Neuts % (Manual) Lymphocytes % (Manual) Seg Neutrophils # Seg Neutrophils # Man Lymphocytes # (Manual) PT INR ABG pH ABG pO2 ABG HCO3 ABG O2 Saturation ABG Base Excess ABG Hemoglobin Oxyhemoglobin Sodium Potassium Chloride Carbon Dioxide 33 H BUN Creatinine 0.5 L Glucose 109 H POC Glucose 117 H 109 H Calcium 7.6 L Phosphorus AST ALT Ammonia Albumin 03/08/22 03/09/22 03/10/22 23:56 11:15 03:57 WBC RBC 2.99 L Hgb 9.9 L Hct 30.3 L MCV 102 H MCH 33 H MCHC RDW 16.8 H Lymph % (Auto) 13.3 L Garza % (Auto) 12.5 H Lymph # (Auto) Garza # (Auto) 1.3 H Seg Neutrophils % 72.4 H Seg Neuts % (Manual) Lymphocytes % (Manual) Seg Neutrophils # Seg Neutrophils # Man Lymphocytes # (Manual) PT INR ABG pH ABG pO2 ABG HCO3 ABG O2 Saturation ABG Base Excess ABG Hemoglobin Oxyhemoglobin Sodium Potassium Chloride Carbon Dioxide BUN Creatinine Glucose POC Glucose 106 H 110 H Calcium Phosphorus AST ALT Ammonia Albumin 03/10/22 03/10/22 03/10/22 03:57 04:50 16:04 WBC RBC Hgb Hct MCV MCH MCHC RDW Lymph % (Auto) Garza % (Auto) Lymph # (Auto) Garza # (Auto) Seg Neutrophils % Seg Neuts % (Manual) Lymphocytes % (Manual) Seg Neutrophils # Seg Neutrophils # Man Lymphocytes # (Manual) PT INR ABG pH 7.465 H ABG pO2 ABG HCO3 31.9 H ABG O2 Saturation ABG Base Excess 7.3 H ABG Hemoglobin 11.0 L Oxyhemoglobin Sodium Potassium 3.4 L Chloride Carbon Dioxide BUN Creatinine 0.6 L Glucose POC Glucose 115 H Calcium 8.1 L Phosphorus AST ALT Ammonia Albumin 1.9 L 03/11/22 03/11/22 03/11/22 04:02 04:02 04:02 WBC 12.0 H RBC 2.81 L Hgb 9.2 L Hct 29.1 L MCV 103 H MCH 33 H MCHC RDW 17.5 H Lymph % (Auto) Garza % (Auto) Lymph # (Auto) Garza # (Auto) Seg Neutrophils % Seg Neuts % (Manual) Lymphocytes % (Manual) Seg Neutrophils # Seg Neutrophils # Man Lymphocytes # (Manual) PT 16.2 H INR 1.16 H ABG pH ABG pO2 ABG HCO3 ABG O2 Saturation ABG Base Excess ABG Hemoglobin Oxyhemoglobin Sodium Potassium Chloride Carbon Dioxide BUN Creatinine 0.5 L Glucose 104 H POC Glucose Calcium 7.9 L Phosphorus AST ALT Ammonia Albumin 03/11/22 03/11/22 03/11/22 05:10 11:07 16:32 WBC RBC Hgb Hct MCV MCH MCHC RDW Lymph % (Auto) Garza % (Auto) Lymph # (Auto) Garza # (Auto) Seg Neutrophils % Seg Neuts % (Manual) Lymphocytes % (Manual) Seg Neutrophils # Seg Neutrophils # Man Lymphocytes # (Manual) PT INR ABG pH 7.476 H ABG pO2 ABG HCO3 29.7 H ABG O2 Saturation ABG Base Excess 5.7 H ABG Hemoglobin 9.1 L Oxyhemoglobin Sodium Potassium Chloride Carbon Dioxide BUN Creatinine Glucose POC Glucose 108 H 121 H Calcium Phosphorus AST ALT Ammonia Albumin 03/12/22 03/13/22 03/13/22 05:51 06:08 12:02 WBC RBC 2.73 L Hgb 9.0 L Hct 27.5 L MCV 101 H MCH 33 H MCHC RDW 17.2 H Lymph % (Auto) Garza % (Auto) Lymph # (Auto) Garza # (Auto) Seg Neutrophils % Seg Neuts % (Manual) Lymphocytes % (Manual) Seg Neutrophils # Seg Neutrophils # Man Lymphocytes # (Manual) PT INR ABG pH ABG pO2 ABG HCO3 ABG O2 Saturation ABG Base Excess ABG Hemoglobin Oxyhemoglobin Sodium Potassium Chloride Carbon Dioxide BUN Creatinine Glucose POC Glucose 116 H 111 H Calcium Phosphorus AST ALT Ammonia Albumin 03/13/22 03/13/22 03/14/22 12:48 18:17 03:58 WBC RBC 2.97 L Hgb 9.7 L Hct 30.0 L MCV 101 H MCH 33 H MCHC RDW 16.7 H Lymph % (Auto) Garza % (Auto) Lymph # (Auto) Garza # (Auto) Seg Neutrophils % Seg Neuts % (Manual) Lymphocytes % (Manual) Seg Neutrophils # Seg Neutrophils # Man Lymphocytes # (Manual) PT INR ABG pH ABG pO2 ABG HCO3 ABG O2 Saturation ABG Base Excess ABG Hemoglobin Oxyhemoglobin Sodium Potassium Chloride Carbon Dioxide BUN Creatinine Glucose POC Glucose 125 H 114 H Calcium Phosphorus AST ALT Ammonia Albumin 03/14/22 03/14/22 03/14/22 03:58 13:01 16:41 WBC RBC Hgb Hct MCV MCH MCHC RDW Lymph % (Auto) Garza % (Auto) Lymph # (Auto) Garza # (Auto) Seg Neutrophils % Seg Neuts % (Manual) Lymphocytes % (Manual) Seg Neutrophils # Seg Neutrophils # Man Lymphocytes # (Manual) PT INR ABG pH ABG pO2 ABG HCO3 ABG O2 Saturation ABG Base Excess ABG Hemoglobin Oxyhemoglobin Sodium Potassium Chloride Carbon Dioxide BUN Creatinine 0.6 L Glucose POC Glucose 118 H 109 H Calcium 8.2 L Phosphorus AST ALT Ammonia Albumin 03/16/22 03/16/22 03/17/22 05:28 05:28 23:19 WBC RBC 2.81 L Hgb 9.1 L Hct 27.8 L MCV 99 H MCH MCHC RDW 17.0 H Lymph % (Auto) Garza % (Auto) Lymph # (Auto) Garza # (Auto) Seg Neutrophils % Seg Neuts % (Manual) Lymphocytes % (Manual) Seg Neutrophils # Seg Neutrophils # Man Lymphocytes # (Manual) PT INR ABG pH ABG pO2 ABG HCO3 ABG O2 Saturation ABG Base Excess ABG Hemoglobin Oxyhemoglobin Sodium Potassium Chloride Carbon Dioxide BUN Creatinine 0.5 L Glucose POC Glucose 113 H Calcium 8.2 L Phosphorus AST ALT Ammonia Albumin 03/20/22 03/20/22 03/20/22 04:09 04:09 17:22 WBC RBC 2.90 L Hgb 9.6 L Hct 28.9 L MCV 100 H MCH 33 H MCHC RDW 17.4 H Lymph % (Auto) Garza % (Auto) Lymph # (Auto) Garza # (Auto) Seg Neutrophils % Seg Neuts % (Manual) Lymphocytes % (Manual) Seg Neutrophils # Seg Neutrophils # Man Lymphocytes # (Manual) PT INR ABG pH ABG pO2 ABG HCO3 ABG O2 Saturation ABG Base Excess ABG Hemoglobin Oxyhemoglobin Sodium Potassium Chloride Carbon Dioxide BUN Creatinine 0.6 L Glucose POC Glucose 110 H Calcium 8.2 L Phosphorus AST ALT Ammonia Albumin 03/21/22 03/21/22 03/22/22 18:24 23:09 12:18 WBC RBC Hgb Hct MCV MCH MCHC RDW Lymph % (Auto) Garza % (Auto) Lymph # (Auto) Garza # (Auto) Seg Neutrophils % Seg Neuts % (Manual) Lymphocytes % (Manual) Seg Neutrophils # Seg Neutrophils # Man Lymphocytes # (Manual) PT INR ABG pH ABG pO2 ABG HCO3 ABG O2 Saturation ABG Base Excess ABG Hemoglobin Oxyhemoglobin Sodium Potassium Chloride Carbon Dioxide BUN Creatinine Glucose POC Glucose 110 H 107 H 106 H Calcium Phosphorus AST ALT Ammonia Albumin 03/22/22 03/23/22 03/23/22 14:25 00:21 11:31 WBC RBC Hgb Hct MCV MCH MCHC RDW Lymph % (Auto) Garza % (Auto) Lymph # (Auto) Garza # (Auto) Seg Neutrophils % Seg Neuts % (Manual) Lymphocytes % (Manual) Seg Neutrophils # Seg Neutrophils # Man Lymphocytes # (Manual) PT INR ABG pH ABG pO2 150.5 H ABG HCO3 32.4 H ABG O2 Saturation ABG Base Excess 6.2 H ABG Hemoglobin 11.4 L Oxyhemoglobin Sodium Potassium Chloride Carbon Dioxide BUN Creatinine Glucose POC Glucose 107 H 110 H Calcium Phosphorus AST ALT Ammonia Albumin 03/24/22 03/24/22 03/24/22 03:47 03:47 05:56 WBC RBC 3.18 L Hgb 10.1 L Hct 31.1 L MCV 98 H MCH MCHC RDW 17.4 H Lymph % (Auto) Garza % (Auto) Lymph # (Auto) Garza # (Auto) Seg Neutrophils % Seg Neuts % (Manual) Lymphocytes % (Manual) Seg Neutrophils # Seg Neutrophils # Man Lymphocytes # (Manual) PT INR ABG pH ABG pO2 ABG HCO3 ABG O2 Saturation ABG Base Excess ABG Hemoglobin Oxyhemoglobin Sodium Potassium Chloride Carbon Dioxide BUN Creatinine 0.5 L Glucose POC Glucose 107 H Calcium Phosphorus AST ALT Ammonia Albumin 03/24/22 03/25/22 03/25/22 11:15 00:14 11:24 WBC RBC Hgb Hct MCV MCH MCHC RDW Lymph % (Auto) Garza % (Auto) Lymph # (Auto) Garza # (Auto) Seg Neutrophils % Seg Neuts % (Manual) Lymphocytes % (Manual) Seg Neutrophils # Seg Neutrophils # Man Lymphocytes # (Manual) PT INR ABG pH ABG pO2 ABG HCO3 ABG O2 Saturation ABG Base Excess ABG Hemoglobin Oxyhemoglobin Sodium Potassium Chloride Carbon Dioxide BUN Creatinine Glucose POC Glucose 126 H 109 H 110 H Calcium Phosphorus AST ALT Ammonia Albumin 03/25/22 03/26/22 03/26/22 16:27 05:18 11:15 WBC RBC Hgb Hct MCV MCH MCHC RDW Lymph % (Auto) Garza % (Auto) Lymph # (Auto) Garza # (Auto) Seg Neutrophils % Seg Neuts % (Manual) Lymphocytes % (Manual) Seg Neutrophils # Seg Neutrophils # Man Lymphocytes # (Manual) PT INR ABG pH ABG pO2 ABG HCO3 ABG O2 Saturation ABG Base Excess ABG Hemoglobin Oxyhemoglobin Sodium Potassium Chloride Carbon Dioxide BUN Creatinine Glucose POC Glucose 123 H 114 H 135 H Calcium Phosphorus AST ALT Ammonia Albumin
[2022-03-26] MEDS: PRAVASTATIN 40 MG TAB FEEDTUBE SCH (21:42)
[2022-03-27] MEDS: ALBUTEROL 2.5 MG/3 ML NEBU IH SCH ×4 (03:20→20:36)
[2022-03-27 04:40] LABS: Hematocrit 29.3 % (35.5-45.6); Hemoglobin 9.2 gm/dl (11.8-15.2); Mean Corpuscular HGB Conc 31 % (32-34); Mean Corpuscular Volume 100 fl (84-94); Platelet Count 304 K/mm3 (140-440); Red Blood Count 2.94 M/mm3 (3.65-5.03); Red Cell Distribution Width 17.5 % (13.2-15.2)
[2022-03-27 05:00] LABS: Blood Urea Nitrogen 23 mg/dL (9-20); Calcium 8.2 mg/dL (8.4-10.2); Hemolysis Index 1
[2022-03-27 05:03] LABS: BUN/Creatinine Ratio 38
[2022-03-27] MEDS: HEPARIN 5,000 UNIT/1 ML VIAL SUB-Q SCH ×3 (06:13→22:15)
[2022-03-27] MEDS: LEVOTHYROXINE 25 MCG TAB FEEDTUBE SCH (06:13)
[2022-03-27] MEDS: MIDODRINE 2.5 MG TAB FEEDTUBE SCH ×3 (07:11→15:43)
[2022-03-27 09:15] LABS: Mucus,Urine FEW /HPF
[2022-03-27 09:16] LABS: WBC,Urine > 182.0 /HPF (0.0-6.0)
[2022-03-27] MEDS: levETIRAcetam 500 MG/5 ML ORAL LIQD FEEDTUBE SCH ×2 (09:29→22:15)
[2022-03-27] MEDS: SENNOSIDES/DOCUSATE SODIUM 8.6/50 MG TAB FEEDTUBE SCH ×2 (09:30→22:15)
[2022-03-27] MEDS: FAMOTIDINE 20 MG TAB FEEDTUBE SCH ×2 (09:30→22:15)
[2022-03-27 09:33] LABS: Color,Urine Yellow (Yellow)
[2022-03-27] MEDS: cefTRIAXone/NS 1 GM/50 ML 1 GM/50 ML BAG IV SCH (10:51)
--- NOTE | 2022-03-27 12:05 | Progress Note ---
Assessment and Plan 61 y/o male with abnormal CT of chest. 03/27/22: Day 31 of intubation. Given increase in WBC will treat empirically with Rocephin. Follow up urine cultures. CXR appears stable, await official read. Guarded prognosis. 03/26/22: Day 30 of Intubation. Daily PSV trials. no new recommendations. 03/25/22: Day 29 of intubation. RT to try PSV this am, hesistant given low sats but improved with suctioning. Still no word from the hospital in regards to guardianship. I do not feel comfortable with attempting extubation again on this patient given his quick failure and difficult re-intubation. 03/24/22: Day 28 of intubation. reviewed my partners notes from the weekend. Glad patient is tolerating PSV however do not see conventional extubation in the near future given patient's mental status and how fast he failed extubation (within an hour) on his first attempt. Patient was also a difficult re- intubation. Follow up with CM and hospital tomorrow. Continue supportive measures. 03/21/22: Day 25 of intubation. No new updates from the hospital about guardianship. Wound care saw on yesterday. Continue daily PSV trials as t olerated. Guarded prognosis. 03/20/22: Day 24 of intubation. No new recommendations. Still awaiting hospital update in regards to guardianship so that decisions can be made. Continue supportive measures. Wound care to see today. 03/19/22: Day 23 of intubation. Prognosis is still guarded. Will discuss with RT about attempts at daily PSV trials. Per notes, Wound care to see , wound was present on admission. 03/18/22: Day 22 of intubation. Prognosis remains guarded. Not able to obtain trach and peg with consent. Continue daily PSV trials as tolerated. 03/17/22: Day 21 of intubation. Still awaiting some form of decision maker for trach and peg placement. Guarded prognosis. 03/16/22: Day 20 of intubation. BP stable. Continue midodrine. Awaiting emergency guardianship from Court to obtain consent for trach and peg. Guarded prognosis. 03/15/22: Day 19 of intubation. BP now is marginal more regularly. Will give an additional liter bolus of LR now. May need to increase Midodrine back to 5. Needs trach in order to be safely weaned from ventilator. Will need peg tube placement in addition to trach. Prognosis remains guarded. Continue PSV trials as tolerated. 03/14/22: Day 18 of intubation. Vitals stable and mental status is unchanged. Still in need of tracheostomy as well as peg tube placement. No guardian appointed yet. 03/13/22: Day 17 of intubation. Agree with bolus and restarting of midodrine. was stopped previously secondary to bradycardia. If patient spikes temp, will culture blood and urine and repeat CXR. Continue daily PSV trials to assess ability for vent liberation. Continues to need trach however no family/guardian to provide consent. Guarded prognosis. 03/12/22: Day 16 of intubation. Following up with hospital in regards to guardian. Continue supportive measures. Guarded prognosis. 03/11/22: hospital now attempting to find emergency guardian to have consent for trach as ethics committee cannot comment on this matter so unable to help. Until then will remain intubated orally. Failed PSV yesterday, will continue to attempt on daily basis. Unfortunate situation. Guarded prognosis. 03/10/22: Today nuñez day 14 of intubation. Given patient's mental state and increased risk of aspiration, the likelihood of conventional extubation with success is very very slim and the patient has already failed this in an extremely short period of time (less than 1 hour). I suspect that he will fail again if tried and could create more difficult reintubation as he was a difficult reintubation on his failed extubation attempt. To prevent further decline and potential complications of prolonged mechanical ventilation, will discuss with ethics and the hospital to use 2 physician consent to obtain trach and peg for this patient with hopes of liberating him from the mechanical ventilator. he has very minimal vent requirements but as been stated several times above, he continues to aspirate and failed conventional extubation almost immediately. Will consult surgery today. Dr. Mancia is prepared to sign consent as well as myself. Hopeful surgery will be on board with this. Continue supportive care for now. Attempt daily PSV trials. 03/07/22: Daily PSV trials as tolerated. Still no one to step up as adult friend. patient has now been intubated since 02/24/22 and is approaching the time period in which prolonged mechanical ventilation could lead to significant complications that could be detrimental to health (infection, stenosis, malacia etc). Will discuss again with ethics but in regards to medical necessity, may need to consider two physician consent if no one is able to claim responsibility for this patient. He is a full code and we must work in his best interest to prevent further harm. Continue supportive measures but he is not a candidate for conventional extubation given his mental state, despite being on minimal support. He has already failed this before. 03/06/22: PSV trials daily. Will discuss with RT. Spoke with ethics. Plan in place and awaiting on news from [facility] and [facility]. Continue supportive measures. Patient has been intubated since 02/24/22 and is approaching the 2 week shadi of intubation will need to make decisions soon to avoid unnecessary complications related to prolonged intubation. 03/05/22: Will follow up with ethics today. Awaiting some guidance about consent for trach and peg. This is a medical necessity to liberate patient from mechanical ventilation. Continue supportive measures. Ok with daily PSV trials 03/04/22: Follow up with ethics later this afternoon. Spoke with RT and patient does have cuff leak, will stop steroids. Stopping midodrine as BP is stable and bradycardia likely from this. 03/03/22: Await ethics eval. CM has spoken with state as well. Daily cuff leaks. Will start to wean steroids tomorrow. Midodrine can cause bradycardia. If continues or worsens will stop. Guarded prognosis. 03/02/22: Continue supportive measures. Await ethics consult before surgery consult for trach and peg. no further need for fluid boluses. Will continue stress dose steroids but have daily air leak checks by RT. Still will need trach, will not attempt extubation again. Guarded prognosis. 03/01/22: Patient is having increased urine output. This could be the cause of new onset hypotension. Will bolus 2 more liters of LR now and reassess. If this continues may need to work up for SIADH including repeat head CT. Follow up ethics review of case. Will need trach for ventilator liberation. Overall prognosis remains guarded. 02/28/22: Will obtain CT neck, noncontrast to look for airway edema or other possible etiologies for failure. Needs ethics consult as given patient's mental state, inability to clear secretions appropriately, will need trach now that he has failed extubation. However he has no family and no POA so no one to give consent. Continue supportive measures. Guarded prognosis. 02/27/22: Continue improvement of oxygenation. Will drop PEEP down today with goal of being at 6 by in the morning. Will repeat CT scan to confirm improvement as no endobronchial lesion was seen, but also to make sure no parenchymal mass. There was no evidence of extrinsic compression during bronch. Likely extubation tomorrow post CT. 02/26/22: Repeat CXR now. Wean Vent as tolerated. Hopeful extubation soon. Mucous removed. NO ENDOBRONCHIAL LESION/MASS 02/25/22: Bronch tentatively planned for tomorrow with therapeutic scope. Awaiting GI lab to give a time. NPO after midnight. Continue high PEEP 02/24/22: WIll attempt to bronch tomorrow morning. NPO after midnight. Just received word from GI lab they are not able to do bronch tomorrow. Cancel NPO order. Continue to feed patient. Repeat ABG in AM along with CXR. 02/21/22: No new pulm recs for today. Please obtain repeat CXR likely on Thursday. If patient happens to get worse, likely not a candidate for bipap given his weak cough and mental state and inability to communicate. If worsens and requires intubation, will bronch then under emergent circumstances if no POA or family is able to be located. Continue CPT. Will discuss with RT about NT suctioning. 02/20/22: Saw speech while on the floor. Would like patient to be NPO now. Discussed with nurse on floor and with IMS. Same recs pulm way as yesterday. Would benefit from bronch if able to get consent as this is not emergent. Continue CPT and q shift NT suctioning. Reviewed admission in the past and of note, patient was recently admitted last month and had a CXR done on the 29 of January that was normal. Given this patient's medical history and the history that I obtained from the nursing staff that at the alf he was eating solid foods, I suspect that this is aspiration, possibly of a foreign body (most likely food) with atelectasis of the right lower lobe. It is highly unlikely that a mass evolved in size in less than a months time and patient, besides age, has no real risk factors for lung carcinoma. Discussed with the nurse and unfortunately there is no identifiable person that is able to give consent. Bronchoscopy is needed in the case to evaluate to see if lung mass is there vs foreign body, but at this time not able to do. In the meanwhile will recommend the following. 1. Will order CPT with neb therapy 3x daily 2. Suggest maybe NT suctioning q shift. May use nasal trumpet, however do not leave this device in the patient 3. Aspiration precautions 4. Consider speech eval to assess swallowing. Will continue to follow. CCT 31 minutes. Subjective Date of service: 03/27/22 Principal diagnosis: f/u Acute respiratory failure Interval history: No acute events overnight, but has had increase in White count. Horowitz was removed but repeat urine yesterday is cloudy, negative nitrite, moderate leuks and alot of WBC's Objective Vital Signs - 12hr 03/27/22 03/27/22 03/27/22 00:16 00:30 01:00 Temperature Pulse Rate 98 H 96 H 93 H Pulse Rate [ Anterior Bilateral Throughout] Pulse Rate [ Bilateral Throughout] Pulse Rate [ From Monitor] Respiratory 17 17 Rate Respiratory Rate [Anterior Bilateral Throughout] Respiratory Rate [Bilateral Throughout] Blood Pressure 104/52 104/52 95/52 O2 Sat by Pulse 98 98 96 Oximetry 03/27/22 03/27/22 03/27/22 01:30 02:00 02:30 Temperature Pulse Rate 94 H 91 H 89 Pulse Rate [ 93 H Anterior Bilateral Throughout] Pulse Rate [ 90 Bilateral Throughout] Pulse Rate [ From Monitor] Respiratory 20 16 15 Rate Respiratory 20 Rate [Anterior Bilateral Throughout] Respiratory 14 Rate [Bilateral Throughout] Blood Pressure 104/52 98/55 98/55 O2 Sat by Pulse 98 96 99 Oximetry 03/27/22 03/27/22 03/27/22 03:00 03:30 04:00 Temperature 98.1 F Pulse Rate 89 90 85 Pulse Rate [ Anterior Bilateral Throughout] Pulse Rate [ Bilateral Throughout] Pulse Rate [ 91 H From Monitor] Respiratory 13 14 14 Rate Respiratory Rate [Anterior Bilateral Throughout] Respiratory Rate [Bilateral Throughout] Blood Pressure 99/53 99/53 89/33 O2 Sat by Pulse 96 96 90 Oximetry 03/27/22 03/27/22 03/27/22 04:09 04:30 05:00 Temperature Pulse Rate 85 88 88 Pulse Rate [ Anterior Bilateral Throughout] Pulse Rate [ Bilateral Throughout] Pulse Rate [ From Monitor] Respiratory 14 11 L Rate Respiratory Rate [Anterior Bilateral Throughout] Respiratory Rate [Bilateral Throughout] Blood Pressure 89/33 89/33 95/48 O2 Sat by Pulse 98 99 95 Oximetry 03/27/22 03/27/22 03/27/22 05:30 06:00 06:30 Temperature Pulse Rate 97 H 94 H 91 H Pulse Rate [ Anterior Bilateral Throughout] Pulse Rate [ Bilateral Throughout] Pulse Rate [ From Monitor] Respiratory 22 20 18 Rate Respiratory Rate [Anterior Bilateral Throughout] Respiratory Rate [Bilateral Throughout] Blood Pressure 95/48 105/54 105/54 O2 Sat by Pulse 99 96 98 Oximetry 03/27/22 03/27/22 03/27/22 07:00 07:15 07:23 Temperature 98.9 F Pulse Rate 87 Pulse Rate [ Anterior Bilateral Throughout] Pulse Rate [ Bilateral Throughout] Pulse Rate [ 91 H From Monitor] Respiratory 16 Rate Respiratory Rate [Anterior Bilateral Throughout] Respiratory Rate [Bilateral Throughout] Blood Pressure 98/52 O2 Sat by Pulse 96 95 Oximetry 03/27/22 03/27/22 03/27/22 07:30 07:51 08:00 Temperature Pulse Rate 83 80 82 Pulse Rate [ 91 H Anterior Bilateral Throughout] Pulse Rate [ Bilateral Throughout] Pulse Rate [ From Monitor] Respiratory 15 13 Rate Respiratory 17 Rate [Anterior Bilateral Throughout] Respiratory Rate [Bilateral Throughout] Blood Pressure 98/52 98/52 98/53 O2 Sat by Pulse 99 100 96 Oximetry 03/27/22 03/27/22 03/27/22 08:30 09:00 09:30 Temperature Pulse Rate 75 72 75 Pulse Rate [ Anterior Bilateral Throughout] Pulse Rate [ Bilateral Throughout] Pulse Rate [ From Monitor] Respiratory 17 14 28 H Rate Respiratory Rate [Anterior Bilateral Throughout] Respiratory Rate [Bilateral Throughout] Blood Pressure 98/53 92/35 92/35 O2 Sat by Pulse 98 96 100 Oximetry 03/27/22 03/27/22 03/27/22 10:00 10:30 11:02 Temperature Pulse Rate 91 H 91 H 92 H Pulse Rate [ Anterior Bilateral Throughout] Pulse Rate [ Bilateral Throughout] Pulse Rate [ From Monitor] Respiratory 20 19 16 Rate Respiratory Rate [Anterior Bilateral Throughout] Respiratory Rate [Bilateral Throughout] Blood Pressure 92/35 117/61 O2 Sat by Pulse 98 100 95 Oximetry 03/27/22 03/27/22 11:24 11:31 Temperature 99.3 F Pulse Rate 89 Pulse Rate [ Anterior Bilateral Throughout] Pulse Rate [ Bilateral Throughout] Pulse Rate [ From Monitor] Respiratory 15 Rate Respiratory Rate [Anterior Bilateral Throughout] Respiratory Rate [Bilateral Throughout] Blood Pressure 103/44 O2 Sat by Pulse 97 Oximetry Constitutional: alert, other (critically ill on ventilator) Eyes: non-icteric ENT: oropharynx moist Neck: supple Effort: normal Ascultation: Bilateral: diminished breath sounds, rhonchi Cardiovascular: regular rate and rhythm (no mrg) Gastrointestinal: normoactive bowel sounds, soft, non-tender (on o2 vest in place), non-distended Integumentary: normal Extremities: no cyanosis, no edema Neurologic: other (awake) Psychiatric: other (unable to assess) CBC and BMP: 03/27/22 03:52 03/27/22 03:52 ABG, PT/INR, D-dimer: ABG ABG pH 7.392 pH Units (7.350-7.450) 03/22/22 14:25 ABG pCO2 54.4 mm Hg 03/22/22 14:25 ABG pO2 150.5 mm Hg (80.0-90.0) H 03/22/22 14:25 ABG O2 Saturation 98.8 % (95.0-99.0) 03/22/22 14:25 PT/INR, D-dimer PT 16.2 Sec. (12.2-14.9) H 03/11/22 04:02 INR 1.16 (0.87-1.13) H 03/11/22 04:02 Abnormal lab findings: Abnormal Labs 02/18/22 02/18/22 02/18/22 19:34 21:02 21:02 WBC RBC Hgb Hct MCV 101 H MCH 34 H MCHC RDW 16.1 H Lymph % (Auto) [place] % (Auto) 12.4 H Lymph # (Auto) [place] # (Auto) 1.2 H Seg Neutrophils % 73.0 H Seg Neuts % (Manual) Lymphocytes % (Manual) Seg Neutrophils # Seg Neutrophils # Man Lymphocytes # (Manual) PT 16.9 H INR 1.20 H ABG pH ABG pO2 ABG HCO3 ABG O2 Saturation ABG Base Excess ABG Hemoglobin Oxyhemoglobin Sodium Potassium Chloride Carbon Dioxide BUN Creatinine Glucose POC Glucose 116 H Calcium Phosphorus AST ALT Ammonia Albumin Urine WBC (Auto) 02/18/22 02/18/22 02/18/22 21:02 22:45 23:22 WBC RBC Hgb Hct MCV MCH MCHC RDW Lymph % (Auto) [place] % (Auto) Lymph # (Auto) [place] # (Auto) Seg Neutrophils % Seg Neuts % (Manual) Lymphocytes % (Manual) Seg Neutrophils # Seg Neutrophils # Man Lymphocytes # (Manual) PT INR ABG pH ABG pO2 55.6 L ABG HCO3 28.4 H ABG O2 Saturation 91.5 L ABG Base Excess 3.8 H ABG Hemoglobin 13.2 L Oxyhemoglobin 89.6 L Sodium Potassium 5.1 H Chloride Carbon Dioxide BUN Creatinine Glucose 102 H POC Glucose Calcium Phosphorus AST 48 H ALT 64 H Ammonia 14.0 L Albumin 2.7 L Urine WBC (Auto) 02/20/22 02/20/22 02/23/22 04:59 04:59 06:29 WBC 11.4 H RBC Hgb Hct MCV 103 H MCH 33 H MCHC RDW 16.5 H Lymph % (Auto) 5.5 L [place] % (Auto) 12.1 H Lymph # (Auto) 0.6 L [place] # (Auto) 1.4 H Seg Neutrophils % 81.4 H Seg Neuts % (Manual) Lymphocytes % (Manual) Seg Neutrophils # 9.2 H Seg Neutrophils # Man Lymphocytes # (Manual) PT INR ABG pH ABG pO2 ABG HCO3 ABG O2 Saturation ABG Base Excess ABG Hemoglobin Oxyhemoglobin Sodium Potassium Chloride Carbon Dioxide BUN Creatinine Glucose POC Glucose 113 H Calcium 8.2 L Phosphorus AST ALT Ammonia Albumin Urine WBC (Auto) 02/23/22 02/23/22 02/24/22 11:22 16:10 00:02 WBC RBC Hgb Hct MCV MCH MCHC RDW Lymph % (Auto) [place] % (Auto) Lymph # (Auto) [place] # (Auto) Seg Neutrophils % Seg Neuts % (Manual) Lymphocytes % (Manual) Seg Neutrophils # Seg Neutrophils # Man Lymphocytes # (Manual) PT INR ABG pH ABG pO2 ABG HCO3 ABG O2 Saturation ABG Base Excess ABG Hemoglobin Oxyhemoglobin Sodium Potassium Chloride Carbon Dioxide BUN Creatinine Glucose POC Glucose 108 H 115 H 109 H Calcium Phosphorus AST ALT Ammonia Albumin Urine WBC (Auto) 02/24/22 02/24/22 02/24/22 11:05 11:05 13:20 WBC RBC 3.55 L Hgb Hct MCV 100 H MCH 34 H MCHC RDW 15.6 H Lymph % (Auto) [place] % (Auto) Lymph # (Auto) [place] # (Auto) Seg Neutrophils % Seg Neuts % (Manual) Lymphocytes % (Manual) Seg Neutrophils # Seg Neutrophils # Man Lymphocytes # (Manual) PT INR ABG pH ABG pO2 ABG HCO3 ABG O2 Saturation ABG Base Excess ABG Hemoglobin Oxyhemoglobin Sodium 146 H Potassium 3.2 L D Chloride 108.4 H Carbon Dioxide BUN Creatinine 0.5 L Glucose POC Glucose 111 H Calcium 7.9 L Phosphorus 2.20 L AST ALT Ammonia Albumin Urine WBC (Auto) 02/24/22 02/24/22 02/24/22 16:30 17:03 20:25 WBC RBC Hgb Hct MCV MCH MCHC RDW Lymph % (Auto) [place] % (Auto) Lymph # (Auto) [place] # (Auto) Seg Neutrophils % Seg Neuts % (Manual) Lymphocytes % (Manual) Seg Neutrophils # Seg Neutrophils # Man Lymphocytes # (Manual) PT INR ABG pH 7.319 L ABG pO2 65.3 L ABG HCO3 31.3 H ABG O2 Saturation 92.2 L ABG Base Excess 3.8 H ABG Hemoglobin 12.0 L Oxyhemoglobin 90.3 L Sodium Potassium Chloride 107.9 H Carbon Dioxide BUN 8 L Creatinine 0.4 L Glucose POC Glucose 108 H Calcium 7.6 L Phosphorus 4.60 H D AST ALT Ammonia Albumin Urine WBC (Auto) 02/25/22 02/25/22 02/25/22 04:12 04:12 05:05 WBC RBC 3.07 L Hgb 10.2 L Hct 31.5 L MCV 103 H MCH 33 H MCHC RDW 15.6 H Lymph % (Auto) [place] % (Auto) Lymph # (Auto) [place] # (Auto) Seg Neutrophils % Seg Neuts % (Manual) Lymphocytes % (Manual) Seg Neutrophils # Seg Neutrophils # Man Lymphocytes # (Manual) PT INR ABG pH ABG pO2 ABG HCO3 32.5 H ABG O2 Saturation ABG Base Excess 5.6 H ABG Hemoglobin 10.8 L Oxyhemoglobin 94.8 L Sodium Potassium 3.5 L Chloride 107.7 H Carbon Dioxide BUN Creatinine 0.5 L Glucose POC Glucose Calcium 7.0 L Phosphorus AST ALT Ammonia Albumin Urine WBC (Auto) 02/25/22 02/25/22 02/26/22 12:05 18:33 00:07 WBC RBC Hgb Hct MCV MCH MCHC RDW Lymph % (Auto) [place] % (Auto) Lymph # (Auto) [place] # (Auto) Seg Neutrophils % Seg Neuts % (Manual) Lymphocytes % (Manual) Seg Neutrophils # Seg Neutrophils # Man Lymphocytes # (Manual) PT INR ABG pH ABG pO2 ABG HCO3 ABG O2 Saturation ABG Base Excess ABG Hemoglobin Oxyhemoglobin Sodium Potassium Chloride Carbon Dioxide BUN Creatinine Glucose POC Glucose 127 H 125 H 114 H Calcium Phosphorus AST ALT Ammonia Albumin Urine WBC (Auto) 02/26/22 02/26/22 02/26/22 03:30 04:42 11:34 WBC RBC Hgb Hct MCV MCH MCHC RDW Lymph % (Auto) [place] % (Auto) Lymph # (Auto) [place] # (Auto) Seg Neutrophils % Seg Neuts % (Manual) Lymphocytes % (Manual) Seg Neutrophils # Seg Neutrophils # Man Lymphocytes # (Manual) PT INR ABG pH ABG pO2 143.2 H ABG HCO3 33.2 H ABG O2 Saturation ABG Base Excess 6.5 H ABG Hemoglobin 9.4 L Oxyhemoglobin Sodium Potassium Chloride Carbon Dioxide 32 H BUN Creatinine 0.7 L Glucose POC Glucose 114 H Calcium 8.0 L Phosphorus AST ALT Ammonia Albumin Urine WBC (Auto) 02/26/22 02/26/22 02/27/22 18:17 23:37 04:19 WBC 13.7 H RBC 2.78 L Hgb 9.3 L Hct 28.5 L MCV 103 H MCH 33 H MCHC RDW 16.3 H Lymph % (Auto) [place] % (Auto) Lymph # (Auto) [place] # (Auto) Seg Neutrophils % Seg Neuts % (Manual) Lymphocytes % (Manual) Seg Neutrophils # Seg Neutrophils # Man Lymphocytes # (Manual) PT INR ABG pH ABG pO2 ABG HCO3 ABG O2 Saturation ABG Base Excess ABG Hemoglobin Oxyhemoglobin Sodium Potassium Chloride Carbon Dioxide BUN Creatinine Glucose POC Glucose 111 H 117 H Calcium Phosphorus AST ALT Ammonia Albumin Urine WBC (Auto) 02/27/22 02/27/22 02/27/22 04:19 04:35 05:27 WBC RBC Hgb Hct MCV MCH MCHC RDW Lymph % (Auto) [place] % (Auto) Lymph # (Auto) [place] # (Auto) Seg Neutrophils % Seg Neuts % (Manual) Lymphocytes % (Manual) Seg Neutrophils # Seg Neutrophils # Man Lymphocytes # (Manual) PT INR ABG pH ABG pO2 96.3 H ABG HCO3 34.9 H ABG O2 Saturation ABG Base Excess 8.1 H ABG Hemoglobin Oxyhemoglobin Sodium Potassium Chloride Carbon Dioxide 31 H BUN Creatinine 0.6 L Glucose 107 H POC Glucose 133 H Calcium 7.8 L Phosphorus AST ALT Ammonia Albumin Urine WBC (Auto) 02/27/22 02/27/22 02/28/22 11:15 23:35 03:38 WBC 13.3 H RBC 3.05 L Hgb 10.2 L Hct 30.7 L MCV 101 H MCH 33 H MCHC RDW 16.1 H Lymph % (Auto) [place] % (Auto) Lymph # (Auto) [place] # (Auto) Seg Neutrophils % Seg Neuts % (Manual) Lymphocytes % (Manual) Seg Neutrophils # Seg Neutrophils # Man Lymphocytes # (Manual) PT INR ABG pH ABG pO2 ABG HCO3 ABG O2 Saturation ABG Base Excess ABG Hemoglobin Oxyhemoglobin Sodium Potassium Chloride Carbon Dioxide BUN Creatinine Glucose POC Glucose 129 H 122 H Calcium Phosphorus AST ALT Ammonia Albumin Urine WBC (Auto) 02/28/22 02/28/22 02/28/22 04:50 05:30 09:30 WBC RBC Hgb Hct MCV MCH MCHC RDW Lymph % (Auto) [place] % (Auto) Lymph # (Auto) [place] # (Auto) Seg Neutrophils % Seg Neuts % (Manual) Lymphocytes % (Manual) Seg Neutrophils # Seg Neutrophils # Man Lymphocytes # (Manual) PT INR ABG pH 7.451 H 7.488 H ABG pO2 77.0 L ABG HCO3 37.1 H 34.6 H ABG O2 Saturation ABG Base Excess 11.5 H 10.1 H ABG Hemoglobin 10.1 L 10.0 L Oxyhemoglobin Sodium Potassium Chloride Carbon Dioxide BUN Creatinine Glucose POC Glucose 121 H Calcium Phosphorus AST ALT Ammonia Albumin Urine WBC (Auto) 02/28/22 02/28/22 03/01/22 11:36 23:07 04:27 WBC 12.5 H RBC 2.85 L Hgb 9.5 L Hct 28.6 L MCV 101 H MCH 33 H MCHC RDW 15.7 H Lymph % (Auto) [place] % (Auto) Lymph # (Auto) [place] # (Auto) Seg Neutrophils % Seg Neuts % (Manual) Lymphocytes % (Manual) Seg Neutrophils # Seg Neutrophils # Man Lymphocytes # (Manual) PT INR ABG pH ABG pO2 ABG HCO3 ABG O2 Saturation ABG Base Excess ABG Hemoglobin Oxyhemoglobin Sodium Potassium Chloride Carbon Dioxide BUN Creatinine Glucose POC Glucose 112 H 107 H Calcium Phosphorus AST ALT Ammonia Albumin Urine WBC (Auto) 03/01/22 03/01/22 03/01/22 04:27 05:05 11:29 WBC RBC Hgb Hct MCV MCH MCHC RDW Lymph % (Auto) [place] % (Auto) Lymph # (Auto) [place] # (Auto) Seg Neutrophils % Seg Neuts % (Manual) Lymphocytes % (Manual) Seg Neutrophils # Seg Neutrophils # Man Lymphocytes # (Manual) PT INR ABG pH ABG pO2 ABG HCO3 ABG O2 Saturation ABG Base Excess ABG Hemoglobin Oxyhemoglobin Sodium 147 H D Potassium Chloride Carbon Dioxide 34 H BUN Creatinine 0.6 L Glucose 128 H POC Glucose 119 H 121 H Calcium 7.9 L Phosphorus AST ALT Ammonia Albumin Urine WBC (Auto) 03/01/22 03/01/22 03/02/22 16:15 23:57 05:18 WBC RBC Hgb Hct MCV MCH MCHC RDW Lymph % (Auto) [place] % (Auto) Lymph # (Auto) [place] # (Auto) Seg Neutrophils % Seg Neuts % (Manual) Lymphocytes % (Manual) Seg Neutrophils # Seg Neutrophils # Man Lymphocytes # (Manual) PT INR ABG pH ABG pO2 110.5 H ABG HCO3 33.0 H ABG O2 Saturation ABG Base Excess 7.4 H ABG Hemoglobin 8.6 L Oxyhemoglobin Sodium Potassium Chloride Carbon Dioxide BUN Creatinine Glucose POC Glucose 134 H 140 H Calcium Phosphorus AST ALT Ammonia Albumin Urine WBC (Auto) 03/02/22 03/02/22 03/02/22 05:53 09:04 09:04 WBC 15.0 H RBC 3.00 L Hgb 9.7 L Hct 30.7 L MCV 102 H MCH MCHC RDW 16.6 H Lymph % (Auto) [place] % (Auto) Lymph # (Auto) [place] # (Auto) Seg Neutrophils % Seg Neuts % (Manual) Lymphocytes % (Manual) Seg Neutrophils # Seg Neutrophils # Man Lymphocytes # (Manual) PT INR ABG pH ABG pO2 ABG HCO3 ABG O2 Saturation ABG Base Excess ABG Hemoglobin Oxyhemoglobin Sodium Potassium Chloride Carbon Dioxide 31 H BUN Creatinine 0.6 L Glucose 157 H POC Glucose 158 H Calcium 7.9 L Phosphorus AST ALT Ammonia Albumin Urine WBC (Auto) 03/02/22 03/02/22 03/02/22 11:36 16:25 23:17 WBC RBC Hgb Hct MCV MCH MCHC RDW Lymph % (Auto) [place] % (Auto) Lymph # (Auto) [place] # (Auto) Seg Neutrophils % Seg Neuts % (Manual) Lymphocytes % (Manual) Seg Neutrophils # Seg Neutrophils # Man Lymphocytes # (Manual) PT INR ABG pH ABG pO2 ABG HCO3 ABG O2 Saturation ABG Base Excess ABG Hemoglobin Oxyhemoglobin Sodium Potassium Chloride Carbon Dioxide BUN Creatinine Glucose POC Glucose 160 H 132 H 157 H Calcium Phosphorus AST ALT Ammonia Albumin Urine WBC (Auto) 03/03/22 03/03/22 03/03/22 03:54 03:54 05:27 WBC 19.5 H RBC 2.79 L Hgb 9.0 L Hct 28.6 L MCV 102 H MCH MCHC RDW 16.2 H Lymph % (Auto) [place] % (Auto) Lymph # (Auto) [place] # (Auto) Seg Neutrophils % Seg Neuts % (Manual) 95.0 H Lymphocytes % (Manual) 3.0 L Seg Neutrophils # Seg Neutrophils # Man 18.5 H Lymphocytes # (Manual) 0.6 L PT INR ABG pH ABG pO2 ABG HCO3 ABG O2 Saturation ABG Base Excess ABG Hemoglobin Oxyhemoglobin Sodium Potassium Chloride Carbon Dioxide BUN Creatinine 0.6 L Glucose 130 H POC Glucose 149 H Calcium 8.1 L Phosphorus AST ALT Ammonia Albumin Urine WBC (Auto) 03/03/22 03/03/22 03/04/22 11:13 17:30 00:02 WBC RBC Hgb Hct MCV MCH MCHC RDW Lymph % (Auto) [place] % (Auto) Lymph # (Auto) [place] # (Auto) Seg Neutrophils % Seg Neuts % (Manual) Lymphocytes % (Manual) Seg Neutrophils # Seg Neutrophils # Man Lymphocytes # (Manual) PT INR ABG pH ABG pO2 ABG HCO3 ABG O2 Saturation ABG Base Excess ABG Hemoglobin Oxyhemoglobin Sodium Potassium Chloride Carbon Dioxide BUN Creatinine Glucose POC Glucose 139 H 138 H 157 H Calcium Phosphorus AST ALT Ammonia Albumin Urine WBC (Auto) 03/04/22 03/04/22 03/04/22 05:32 05:32 05:48 WBC 16.1 H RBC 2.81 L Hgb 9.3 L Hct 28.8 L MCV 102 H MCH 33 H MCHC RDW 16.7 H Lymph % (Auto) [place] % (Auto) Lymph # (Auto) [place] # (Auto) Seg Neutrophils % Seg Neuts % (Manual) Lymphocytes % (Manual) Seg Neutrophils # Seg Neutrophils # Man Lymphocytes # (Manual) PT INR ABG pH ABG pO2 ABG HCO3 ABG O2 Saturation ABG Base Excess ABG Hemoglobin Oxyhemoglobin Sodium Potassium Chloride Carbon Dioxide BUN Creatinine 0.7 L Glucose 135 H POC Glucose 145 H Calcium 8.3 L Phosphorus AST ALT Ammonia Albumin Urine WBC (Auto) 03/04/22 03/04/22 03/05/22 11:34 16:29 00:28 WBC RBC Hgb Hct MCV MCH MCHC RDW Lymph % (Auto) [place] % (Auto) Lymph # (Auto) [place] # (Auto) Seg Neutrophils % Seg Neuts % (Manual) Lymphocytes % (Manual) Seg Neutrophils # Seg Neutrophils # Man Lymphocytes # (Manual) PT INR ABG pH ABG pO2 ABG HCO3 ABG O2 Saturation ABG Base Excess ABG Hemoglobin Oxyhemoglobin Sodium Potassium Chloride Carbon Dioxide BUN Creatinine Glucose POC Glucose 148 H 140 H 116 H Calcium Phosphorus AST ALT Ammonia Albumin Urine WBC (Auto) 03/05/22 03/05/22 03/05/22 06:29 11:30 17:38 WBC RBC Hgb Hct MCV MCH MCHC RDW Lymph % (Auto) [place] % (Auto) Lymph # (Auto) [place] # (Auto) Seg Neutrophils % Seg Neuts % (Manual) Lymphocytes % (Manual) Seg Neutrophils # Seg Neutrophils # Man Lymphocytes # (Manual) PT INR ABG pH ABG pO2 ABG HCO3 ABG O2 Saturation ABG Base Excess ABG Hemoglobin Oxyhemoglobin Sodium Potassium Chloride Carbon Dioxide BUN Creatinine Glucose POC Glucose 114 H 114 H 117 H Calcium Phosphorus AST ALT Ammonia Albumin Urine WBC (Auto) 03/06/22 03/06/22 03/06/22 04:17 04:17 06:06 WBC 13.4 H RBC 2.85 L Hgb 9.4 L Hct 29.0 L MCV 102 H MCH 33 H MCHC RDW 16.4 H Lymph % (Auto) [place] % (Auto) Lymph # (Auto) [place] # (Auto) Seg Neutrophils % Seg Neuts % (Manual) Lymphocytes % (Manual) Seg Neutrophils # Seg Neutrophils # Man Lymphocytes # (Manual) PT INR ABG pH ABG pO2 ABG HCO3 ABG O2 Saturation ABG Base Excess ABG Hemoglobin Oxyhemoglobin Sodium Potassium 3.5 L Chloride Carbon Dioxide 31 H BUN Creatinine 0.6 L Glucose 101 H POC Glucose 106 H Calcium 7.7 L Phosphorus 2.00 L AST ALT Ammonia Albumin Urine WBC (Auto) 03/06/22 03/06/22 03/07/22 18:04 23:50 05:14 WBC RBC Hgb Hct MCV MCH MCHC RDW Lymph % (Auto) [place] % (Auto) Lymph # (Auto) [place] # (Auto) Seg Neutrophils % Seg Neuts % (Manual) Lymphocytes % (Manual) Seg Neutrophils # Seg Neutrophils # Man Lymphocytes # (Manual) PT INR ABG pH ABG pO2 ABG HCO3 ABG O2 Saturation ABG Base Excess ABG Hemoglobin Oxyhemoglobin Sodium Potassium Chloride Carbon Dioxide BUN Creatinine Glucose POC Glucose 108 H 115 H 116 H Calcium Phosphorus AST ALT Ammonia Albumin Urine WBC (Auto) 03/07/22 03/07/22 03/08/22 11:42 18:13 04:34 WBC RBC 2.86 L Hgb 9.2 L Hct 29.3 L MCV 103 H MCH MCHC 31 L RDW 16.9 H Lymph % (Auto) [place] % (Auto) Lymph # (Auto) [place] # (Auto) Seg Neutrophils % Seg Neuts % (Manual) Lymphocytes % (Manual) Seg Neutrophils # Seg Neutrophils # Man Lymphocytes # (Manual) PT INR ABG pH ABG pO2 ABG HCO3 ABG O2 Saturation ABG Base Excess ABG Hemoglobin Oxyhemoglobin Sodium Potassium Chloride Carbon Dioxide BUN Creatinine Glucose POC Glucose 123 H 109 H Calcium Phosphorus AST ALT Ammonia Albumin Urine WBC (Auto) 03/08/22 03/08/22 03/08/22 04:34 11:29 16:34 WBC RBC Hgb Hct MCV MCH MCHC RDW Lymph % (Auto) [place] % (Auto) Lymph # (Auto) [place] # (Auto) Seg Neutrophils % Seg Neuts % (Manual) Lymphocytes % (Manual) Seg Neutrophils # Seg Neutrophils # Man Lymphocytes # (Manual) PT INR ABG pH ABG pO2 ABG HCO3 ABG O2 Saturation ABG Base Excess ABG Hemoglobin Oxyhemoglobin Sodium Potassium Chloride Carbon Dioxide 33 H BUN Creatinine 0.5 L Glucose 109 H POC Glucose 117 H 109 H Calcium 7.6 L Phosphorus AST ALT Ammonia Albumin Urine WBC (Auto) 03/08/22 03/09/22 03/10/22 23:56 11:15 03:57 WBC RBC 2.99 L Hgb 9.9 L Hct 30.3 L MCV 102 H MCH 33 H MCHC RDW 16.8 H Lymph % (Auto) 13.3 L [place] % (Auto) 12.5 H Lymph # (Auto) [place] # (Auto) 1.3 H Seg Neutrophils % 72.4 H Seg Neuts % (Manual) Lymphocytes % (Manual) Seg Neutrophils # Seg Neutrophils # Man Lymphocytes # (Manual) PT INR ABG pH ABG pO2 ABG HCO3 ABG O2 Saturation ABG Base Excess ABG Hemoglobin Oxyhemoglobin Sodium Potassium Chloride Carbon Dioxide BUN Creatinine Glucose POC Glucose 106 H 110 H Calcium Phosphorus AST ALT Ammonia Albumin Urine WBC (Auto) 03/10/22 03/10/22 03/10/22 03:57 04:50 16:04 WBC RBC Hgb Hct MCV MCH MCHC RDW Lymph % (Auto) [place] % (Auto) Lymph # (Auto) [place] # (Auto) Seg Neutrophils % Seg Neuts % (Manual) Lymphocytes % (Manual) Seg Neutrophils # Seg Neutrophils # Man Lymphocytes # (Manual) PT INR ABG pH 7.465 H ABG pO2 ABG HCO3 31.9 H ABG O2 Saturation ABG Base Excess 7.3 H ABG Hemoglobin 11.0 L Oxyhemoglobin Sodium Potassium 3.4 L Chloride Carbon Dioxide BUN Creatinine 0.6 L Glucose POC Glucose 115 H Calcium 8.1 L Phosphorus AST ALT Ammonia Albumin 1.9 L Urine WBC (Auto) 03/11/22 03/11/22 03/11/22 04:02 04:02 04:02 WBC 12.0 H RBC 2.81 L Hgb 9.2 L Hct 29.1 L MCV 103 H MCH 33 H MCHC RDW 17.5 H Lymph % (Auto) [place] % (Auto) Lymph # (Auto) [place] # (Auto) Seg Neutrophils % Seg Neuts % (Manual) Lymphocytes % (Manual) Seg Neutrophils # Seg Neutrophils # Man Lymphocytes # (Manual) PT 16.2 H INR 1.16 H ABG pH ABG pO2 ABG HCO3 ABG O2 Saturation ABG Base Excess ABG Hemoglobin Oxyhemoglobin Sodium Potassium Chloride Carbon Dioxide BUN Creatinine 0.5 L Glucose 104 H POC Glucose Calcium 7.9 L Phosphorus AST ALT Ammonia Albumin Urine WBC (Auto) 03/11/22 03/11/22 03/11/22 05:10 11:07 16:32 WBC RBC Hgb Hct MCV MCH MCHC RDW Lymph % (Auto) [place] % (Auto) Lymph # (Auto) [place] # (Auto) Seg Neutrophils % Seg Neuts % (Manual) Lymphocytes % (Manual) Seg Neutrophils # Seg Neutrophils # Man Lymphocytes # (Manual) PT INR ABG pH 7.476 H ABG pO2 ABG HCO3 29.7 H ABG O2 Saturation ABG Base Excess 5.7 H ABG Hemoglobin 9.1 L Oxyhemoglobin Sodium Potassium Chloride Carbon Dioxide BUN Creatinine Glucose POC Glucose 108 H 121 H Calcium Phosphorus AST ALT Ammonia Albumin Urine WBC (Auto) 03/12/22 03/13/22 03/13/22 05:51 06:08 12:02 WBC RBC 2.73 L Hgb 9.0 L Hct 27.5 L MCV 101 H MCH 33 H MCHC RDW 17.2 H Lymph % (Auto) [place] % (Auto) Lymph # (Auto) [place] # (Auto) Seg Neutrophils % Seg Neuts % (Manual) Lymphocytes % (Manual) Seg Neutrophils # Seg Neutrophils # Man Lymphocytes # (Manual) PT INR ABG pH ABG pO2 ABG HCO3 ABG O2 Saturation ABG Base Excess ABG Hemoglobin Oxyhemoglobin Sodium Potassium Chloride Carbon Dioxide BUN Creatinine Glucose POC Glucose 116 H 111 H Calcium Phosphorus AST ALT Ammonia Albumin Urine WBC (Auto) 03/13/22 03/13/22 03/14/22 12:48 18:17 03:58 WBC RBC 2.97 L Hgb 9.7 L Hct 30.0 L MCV 101 H MCH 33 H MCHC RDW 16.7 H Lymph % (Auto) [place] % (Auto) Lymph # (Auto) [place] # (Auto) Seg Neutrophils % Seg Neuts % (Manual) Lymphocytes % (Manual) Seg Neutrophils # Seg Neutrophils # Man Lymphocytes # (Manual) PT INR ABG pH ABG pO2 ABG HCO3 ABG O2 Saturation ABG Base Excess ABG Hemoglobin Oxyhemoglobin Sodium Potassium Chloride Carbon Dioxide BUN Creatinine Glucose POC Glucose 125 H 114 H Calcium Phosphorus AST ALT Ammonia Albumin Urine WBC (Auto) 03/14/22 03/14/22 03/14/22 03:58 13:01 16:41 WBC RBC Hgb Hct MCV MCH MCHC RDW Lymph % (Auto) [place] % (Auto) Lymph # (Auto) [place] # (Auto) Seg Neutrophils % Seg Neuts % (Manual) Lymphocytes % (Manual) Seg Neutrophils # Seg Neutrophils # Man Lymphocytes # (Manual) PT INR ABG pH ABG pO2 ABG HCO3 ABG O2 Saturation ABG Base Excess ABG Hemoglobin Oxyhemoglobin Sodium Potassium Chloride Carbon Dioxide BUN Creatinine 0.6 L Glucose POC Glucose 118 H 109 H Calcium 8.2 L Phosphorus AST ALT Ammonia Albumin Urine WBC (Auto) 03/16/22 03/16/22 03/17/22 05:28 05:28 23:19 WBC RBC 2.81 L Hgb 9.1 L Hct 27.8 L MCV 99 H MCH MCHC RDW 17.0 H Lymph % (Auto) [place] % (Auto) Lymph # (Auto) [place] # (Auto) Seg Neutrophils % Seg Neuts % (Manual) Lymphocytes % (Manual) Seg Neutrophils # Seg Neutrophils # Man Lymphocytes # (Manual) PT INR ABG pH ABG pO2 ABG HCO3 ABG O2 Saturation ABG Base Excess ABG Hemoglobin Oxyhemoglobin Sodium Potassium Chloride Carbon Dioxide BUN Creatinine 0.5 L Glucose POC Glucose 113 H Calcium 8.2 L Phosphorus AST ALT Ammonia Albumin Urine WBC (Auto) 03/20/22 03/20/22 03/20/22 04:09 04:09 17:22 WBC RBC 2.90 L Hgb 9.6 L Hct 28.9 L MCV 100 H MCH 33 H MCHC RDW 17.4 H Lymph % (Auto) [place] % (Auto) Lymph # (Auto) [place] # (Auto) Seg Neutrophils % Seg Neuts % (Manual) Lymphocytes % (Manual) Seg Neutrophils # Seg Neutrophils # Man Lymphocytes # (Manual) PT INR ABG pH ABG pO2 ABG HCO3 ABG O2 Saturation ABG Base Excess ABG Hemoglobin Oxyhemoglobin Sodium Potassium Chloride Carbon Dioxide BUN Creatinine 0.6 L Glucose POC Glucose 110 H Calcium 8.2 L Phosphorus AST ALT Ammonia Albumin Urine WBC (Auto) 03/21/22 03/21/22 03/22/22 18:24 23:09 12:18 WBC RBC Hgb Hct MCV MCH MCHC RDW Lymph % (Auto) [place] % (Auto) Lymph # (Auto) [place] # (Auto) Seg Neutrophils % Seg Neuts % (Manual) Lymphocytes % (Manual) Seg Neutrophils # Seg Neutrophils # Man Lymphocytes # (Manual) PT INR ABG pH ABG pO2 ABG HCO3 ABG O2 Saturation ABG Base Excess ABG Hemoglobin Oxyhemoglobin Sodium Potassium Chloride Carbon Dioxide BUN Creatinine Glucose POC Glucose 110 H 107 H 106 H Calcium Phosphorus AST ALT Ammonia Albumin Urine WBC (Auto) 03/22/22 03/23/22 03/23/22 14:25 00:21 11:31 WBC RBC Hgb Hct MCV MCH MCHC RDW Lymph % (Auto) [place] % (Auto) Lymph # (Auto) [place] # (Auto) Seg Neutrophils % Seg Neuts % (Manual) Lymphocytes % (Manual) Seg Neutrophils # Seg Neutrophils # Man Lymphocytes # (Manual) PT INR ABG pH ABG pO2 150.5 H ABG HCO3 32.4 H ABG O2 Saturation ABG Base Excess 6.2 H ABG Hemoglobin 11.4 L Oxyhemoglobin Sodium Potassium Chloride Carbon Dioxide BUN Creatinine Glucose POC Glucose 107 H 110 H Calcium Phosphorus AST ALT Ammonia Albumin Urine WBC (Auto) 03/24/22 03/24/22 03/24/22 03:47 03:47 05:56 WBC RBC 3.18 L Hgb 10.1 L Hct 31.1 L MCV 98 H MCH MCHC RDW 17.4 H Lymph % (Auto) [place] % (Auto) Lymph # (Auto) [place] # (Auto) Seg Neutrophils % Seg Neuts % (Manual) Lymphocytes % (Manual) Seg Neutrophils # Seg Neutrophils # Man Lymphocytes # (Manual) PT INR ABG pH ABG pO2 ABG HCO3 ABG O2 Saturation ABG Base Excess ABG Hemoglobin Oxyhemoglobin Sodium Potassium Chloride Carbon Dioxide BUN Creatinine 0.5 L Glucose POC Glucose 107 H Calcium Phosphorus AST ALT Ammonia Albumin Urine WBC (Auto) 03/24/22 03/25/22 03/25/22 11:15 00:14 11:24 WBC RBC Hgb Hct MCV MCH MCHC RDW Lymph % (Auto) [place] % (Auto) Lymph # (Auto) [place] # (Auto) Seg Neutrophils % Seg Neuts % (Manual) Lymphocytes % (Manual) Seg Neutrophils # Seg Neutrophils # Man Lymphocytes # (Manual) PT INR ABG pH ABG pO2 ABG HCO3 ABG O2 Saturation ABG Base Excess ABG Hemoglobin Oxyhemoglobin Sodium Potassium Chloride Carbon Dioxide BUN Creatinine Glucose POC Glucose 126 H 109 H 110 H Calcium Phosphorus AST ALT Ammonia Albumin Urine WBC (Auto) 03/25/22 03/26/22 03/26/22 16:27 05:18 11:15 WBC RBC Hgb Hct MCV MCH MCHC RDW Lymph % (Auto) [place] % (Auto) Lymph # (Auto) [place] # (Auto) Seg Neutrophils % Seg Neuts % (Manual) Lymphocytes % (Manual) Seg Neutrophils # Seg Neutrophils # Man Lymphocytes # (Manual) PT INR ABG pH ABG pO2 ABG HCO3 ABG O2 Saturation ABG Base Excess ABG Hemoglobin Oxyhemoglobin Sodium Potassium Chloride Carbon Dioxide BUN Creatinine Glucose POC Glucose 123 H 114 H 135 H Calcium Phosphorus AST ALT Ammonia Albumin Urine WBC (Auto) 03/26/22 03/27/22 03/27/22 18:08 03:52 03:52 WBC 17.1 H RBC 2.94 L Hgb 9.2 L Hct 29.3 L MCV 100 H MCH MCHC 31 L RDW 17.5 H Lymph % (Auto) [place] % (Auto) Lymph # (Auto) [place] # (Auto) Seg Neutrophils % Seg Neuts % (Manual) Lymphocytes % (Manual) Seg Neutrophils # Seg Neutrophils # Man Lymphocytes # (Manual) PT INR ABG pH ABG pO2 ABG HCO3 ABG O2 Saturation ABG Base Excess ABG Hemoglobin Oxyhemoglobin Sodium 136 L Potassium Chloride Carbon Dioxide 32 H BUN 23 H Creatinine 0.6 L Glucose POC Glucose 130 H Calcium 8.2 L Phosphorus AST ALT Ammonia Albumin Urine WBC (Auto) 03/27/22 08:36 WBC RBC Hgb Hct MCV MCH MCHC RDW Lymph % (Auto) [place] % (Auto) Lymph # (Auto) [place] # (Auto) Seg Neutrophils % Seg Neuts % (Manual) Lymphocytes % (Manual) Seg Neutrophils # Seg Neutrophils # Man Lymphocytes # (Manual) PT INR ABG pH ABG pO2 ABG HCO3 ABG O2 Saturation ABG Base Excess ABG Hemoglobin Oxyhemoglobin Sodium Potassium Chloride Carbon Dioxide BUN Creatinine Glucose POC Glucose Calcium Phosphorus AST ALT Ammonia Albumin Urine WBC (Auto) > 182.0 H
--- NOTE | 2022-03-27 13:05 | Progress Note ---
<CODYCARSON ZiaRadha - Last Filed: 03/27/22 12:59> Assessment and Plan Assessment and plan: This is a 51-year-old male with HTN, seizure disorder, Down syndrome, HLD, partial blindness admitted with aspiration pneumonia, probable bronchogenic carcinoma, acute hypoxic respiratory failure and acute encephalopathy Neuro: h/o seizure disorder, Down syndrome, partial blindness -Reorientation as needed -Maintain sleep-wake cycle -aspiration/seizure precautions -As needed analgesia -CT head showed no acute abnormality -Continue Keppra Cardiac: h/o HTN, HLD -Cardiology consulted, appreciate recommendations -Blood pressure monitoring per protocol -PO Midodrine Respiratory: Acute hypoxic respiratory failure, ruled out bronchogenic carcinoma -CCM consulted, appreciate recommendations -Intubated on 02/24 with a 8.0 at 23 at the lips but extubated 02/28 -reintubated 02/28 with 8.0 OETT -Vent settings: AC rate 14, TV 360, PEEP 6, FO2 30% -See RT notes for titration -VAP bundle -SPO2 monitoring per protocol -02/18 CTA chest showed no evidence of pulmonary embolism, suspected bronchogenic carcinoma with associated obstruction of the right lower lobe proximal bronchus segment, 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 adenopathy and suspected to left lower lobe metastatic nodule -02/26 Bronch->mucous, no lesion noted -02/27 CT chest read: right mainstem bronchus patent with small amount of interval bronchial fluid which may be mucus (this may account for the appearance of the prior CTA chest fluid-filled airway rather than entering bronchial lesion), previously seen complete left lower lobe since related to bronchial occlusion has significantly improved, there is persistent compressive atelectasis in the right lower lung secondary to the pleural effusion, bilateral pleural effusions, right lung pneumonia -CT neck showed no acute changes -s/p steroids GI: Moderate protein calorie malnutrition -24 hours + 1404 mL -PPI -NTR consulted for tube feedings -BR: Senokot S : NAD -Monitor intake and output -Renally dose medications -Avoid nephrotoxic medications -Trend BMP ID: Aspiration PNA (resolved), sacral wound (POA) -WOCN consulted -Dressing changes per nursing -S/p Rocephin for 5 days (02/19-02/24) -Monitor WBC and temperature curve Endo: NAD -Avoid hypoglycemia -Accu-Cheks every 6 -Avoid hypoglycemia Heme: NAD -Trend CBC -Transfuse hemoglobin less than 7 -SCDs to BLE while in bed Dispo: -Awaiting guardianship for trach/peg The high probability of a clinically significant, sudden or life threatening deterioration of the [resp] system(s) required my full and direct attention, i ntervention and personal management. The aggregate critical care time was [60] minutes. This time is in addition to time spent performing reported procedures but includes the following: [x] Data Review and interpretation [x] Patient assessment and monitoring of vital signs [x] Documentation [x] Medication orders and management Disposition Plan: icu Total Time Spent with Patient (Minutes): 60 History Interval history: This is a 51-year-old male with HTN, seizure disorder, Down syndrome, HLD, and p artial blindness was a resident of the [facility] who presented to emergency department on 02/19 for evaluation of change in mental status. Of note patient was recently discharged a few weeks ago for a seizure disorder and UTI. Upon arrival to the emergency department patient was noted to be hypoxic with SPO2 in the 80s on a nonrebreather with difficulty breathing. Work-up in the emergency department revealed CXR which showed elevation of the right hemidiaphragm, right lower lung atelectasis and effusion with mild increased pulmonary vascularity but no pneumothorax and CT of the head did not show any acute abnormality. 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 Patient was admitted to the hospitalist service to the floor. Hospital course to date: 02/19/2022. Consult pulmonary for further evaluation and possible bronchoscopy. I suspect patient has component of aspiration pneumonia as well. We will obtain a speech therapy evaluation for swallowing and start empiric antibiotics. Continue O2 supplementation to maintain sats greater than 92%. 02/20/2022. Pulmonary feels that the abnormality seen on CT scan is highly unlikely for a mass given negative chest x-ray 1 month ago and no risk factors. Etiology is likely secondary to aspiration from possibly a foreign body most likely food with atelectasis of the right lower lobe. Bronchoscopy is needed in the case to evaluate to see if lung mass is there vs foreign body, but at this time not able to do because no identifiable person that is able to give consent. Continue aspiration precautions and continue speech therapy evaluation for swallowing. Keep n.p.o. for now 02/21/2022. Patient remains NPO. Consider DHT placement. Follow-up with speech therapy evaluation. Pulmonology to consider bronchoscopy if able to obtain consent. Continue IV antibiotics for aspiration pneumonia 02/22/2022. Patient remains NPO. Consider DHT placement. Follow-up with speech therapy evaluation. Pulmonology to consider bronchoscopy if able to obtain consent. Continue IV antibiotics for aspiration pneumonia 02/23/2022. DHT placed yesterday. TF initiated for nutritional support. Patient currently with strict NPO. Aspiration precautions. Pulmonology to consider bronchoscopy if able to obtain consent. Continue IV antibiotics for aspiration pneumonia 02/24: Patient was transferred to the ICU for further monitoring. This morning patient remained on high flow nasal cannula on 40 L/100% and despite repeated nasotracheal suctioning patient SPO2 remained in the 80s. Patient was placed on nonrebreather and SPO2 increased to upper 80s. Patient was subsequently intubated by anesthesia. Started on sedation. 02/25: Patient remains sedated on fentanyl, potassium and magnesium repleted. IV fluids and amlodipine discontinued. Possible bronchoscopy tomorrow. 02/26: Patient had a bronchoscopy today which showed mucus and no endobronchial lesions or masses. FiO2 was increased to 100 during and postprocedure weaning as tolerated. Repeat CXR is much improved after bronc. Given 1 L LR bolus due to hypotension. No acute events reported overnight. 02/27: Decreased PEEP, will repeat CT of chest. no acute changes overnight. 02/28: Patient was extubated today however had to be be intubated shortly after. Patient ETT looked mispositioned on x-ray and Dr. Alonzo did do a bedside bronc. Patient was briefly hypotensive and on Levophed postintubation however Levophed was quickly titrated off and patient did not require central line. No acute events reported overnight. Will obtain CT neck d/t difficulty intubating. Ethic committee consulted. 03/01: Overnight patient was hypotensive and started on IVF. Patient started on steroids as no air leak noted and hypotension and given 2 L LR 03/02: Overnight patient received bolus per RN report, no orders seen. Continue supportive care. 03/04: MAIDA overnight. Remains stable on the vent. Awaiting on desicion from ethics community for possible trach and PEG. Continue current supportive measures 03/05: MAIDA overnight. Awaiting on desicion from ethics community for possible trach and PEG. Midodrine held yesterday, HR improved. Continue current sup portive measures. Daily PSV trial as tolerated per CCM 03/06: Remains stable on the vent. Continue current supportive measures, daily PSV trial per CCM. Awaiting on desicion for possible trach and PEG. 03/07: MAIDA overnight, remains stable. Continue daily PSV trial as tolerated. Awaiting on desicion for possible trach and PEG. 03/08: Patient failed PSV trial this am due to tachycardia and increase RR. Continue supportive measures and daily PSV trial as tolerated. Possible discussion with ethics and [facility] on Thursday in regards to medical necessity, may need to consider two physician consent if no one is able to claim responsibility for this patient. 03/09: MAIDA overnight. Continue current supportive measures and daily PSV trail as tolerated. Awaiting on decision for possible trach and PEG, discussion with Ethics possibly tomorrow per [facility]. 03/10: no acute events overnight, PSV today. replete potassium. 03/11: No acute events reported overnight, patient failed PSV yesterday and will repeat today. Hospital to start guardianship process. 03/12: No acute events overnight. PSV today 03/13: Patient given 500ml normal saline and started on midodrine for hypotension. No acute events reported overnight. Failed pressure support again this morning. 03/14: No acute events reported overnight, patient blood pressure seems better therefore midodrine discontinued. RT placed on CPAP need lasted for couple hours. Will remove summers 03/15: Midodrine was restarted yesterday evening for hypotension, Summers catheter not removed due to sacral ulcer and history of retention. Unable to crush Flomax and patient will not tolerate doxazosin given hypotension. Given LR bolus this morning. If blood pressure continues to be borderline after bolus, we will adjust management as needed. CPAP as tolerated 03/16: No acute events reported overnight, patient placed on CPAP trial this morning which he failed. 03/17: RT attempted PSV which he failed again today. No acute events reported overnight. 03/18: Awaiting ethic committee's decision on Trach/PEG. Patient tolerated PSV trial for over 3 hrs today, continue daily PSV trial as tolerated. 03/19: MAIDA overnight. Continue current supportive measures. Daily PSV trial as tolerated. Awaiting on desicion for possible trach and PEG. 03/20: MAIDA overnight. Daily PSV trial as tolerated. Awaiting decision on guardianship for trach and PEG. 03/21: Remains stable, condition unchanged. Continue supportive measures and daily PSV trial as tolerated. 03/22: MAIDA overnight. Continue current supportive measures. Daily PSV trial as tolerated 03/23: MAIDA overnight, continue supportive measures and daily PSV trial as tolerated. 03/24: Condition unchanged. Still waiting on Ethics' decision for possible trach/Peg. Continue supportive measures and daily PSV trial as tolerated. 03/25: PSV attempt today, does open eyes to stimuli, no acute events overnight. 03/26: Yesterday evening Summers catheter was removed as he was due to be changed, condom cath placed. Overnight patient had good urine output and per RN repeated bladder scans showed less than 200 mL of urine. We will continue to monitor urine output. RT to attempt PSV 03/27: Patient has leukocytosis today and UA has pyuria with moderate LE therefore he will be started on antibiotics. Hospitalist Physical - Constitutional Vitals: Temp Pulse Resp BP Pulse Ox 99.3 F 89 16 110/51 95 03/27/22 11:24 03/27/22 12:42 03/27/22 12:31 03/27/22 12:31 03/27/22 12:42 General appearance: Present: no acute distress, well-nourished - EENT Eyes: Present: PERRL ENT: dentition normal - Neck Neck: Present: normal ROM - Respiratory Respiratory effort: normal Respiratory: bilateral: rhonchi - Cardiovascular Rhythm: regular Heart Sounds: Present: S1 & S2. Absent: systolic murmur, diastolic murmur - Extremities Extremities: no ischemia, pulses intact, pulses symmetrical, No edema, normal temperature, normal color Peripheral Pulses: within normal limits - Abdominal General gastrointestinal: soft, non-tender, non-distended, normal bowel sounds - Integumentary Integumentary: Present: warm, dry - Neurologic Neurologic: other (moves extremites spontanously) - Allied Health Allied health notes reviewed: nursing, RT, social work HEART Score - HEART Score Troponin: Troponin T < 0.010 ng/mL (0.00-0.029) 02/18/22 21:02 Results - Labs CBC & Chem 7: 03/27/22 03:52 03/27/22 03:52 Labs: Laboratory Last Values WBC 17.1 K/mm3 (4.5-11.0) H 03/27/22 03:52 RBC 2.94 M/mm3 (3.65-5.03) L 03/27/22 03:52 Hgb 9.2 gm/dl (11.8-15.2) L 03/27/22 03:52 Hct 29.3 % (35.5-45.6) L 03/27/22 03:52 MCV 100 fl (84-94) H 03/27/22 03:52 MCH 31 pg (28-32) 03/27/22 03:52 MCHC 31 % (32-34) L 03/27/22 03:52 RDW 17.5 % (13.2-15.2) H 03/27/22 03:52 Plt Count 304 K/mm3 (140-440) 03/27/22 03:52 Lymph % (Auto) 13.3 % (13.4-35.0) L 03/10/22 03:57 Stanley % (Auto) 12.5 % (0.0-7.3) H 03/10/22 03:57 Eos % (Auto) 1.4 % (0.0-4.3) 03/10/22 03:57 Baso % (Auto) 0.4 % (0.0-1.8) 03/10/22 03:57 Lymph # (Auto) 1.3 K/mm3 (1.2-5.4) 03/10/22 03:57 Stanley # (Auto) 1.3 K/mm3 (0.0-0.8) H 03/10/22 03:57 Eos # (Auto) 0.1 K/mm3 (0.0-0.4) 03/10/22 03:57 Baso # (Auto) 0.0 K/mm3 (0.0-0.1) 03/10/22 03:57 Add Manual Diff Complete 03/03/22 03:54 Total Counted 100 03/03/22 03:54 Seg Neutrophils % 72.4 % (40.0-70.0) H 03/10/22 03:57 Seg Neuts % (Manual) 95.0 % (40.0-70.0) H 03/03/22 03:54 Band Neutrophils % 0 % 03/03/22 03:54 Lymphocytes % (Manual) 3.0 % (13.4-35.0) L 03/03/22 03:54 Reactive Lymphs % (Man) 0 % 03/03/22 03:54 Monocytes % (Manual) 2.0 % (0.0-7.3) 03/03/22 03:54 Eosinophils % (Manual) 0 % (0.0-4.3) 03/03/22 03:54 Basophils % (Manual) 0 % (0.0-1.8) 03/03/22 03:54 Metamyelocytes % 0 % 03/03/22 03:54 Myelocytes % 0 % 03/03/22 03:54 Promyelocytes % 0 % 03/03/22 03:54 Blast Cells % 0 % 03/03/22 03:54 Nucleated RBC % Not Reportable 03/03/22 03:54 Seg Neutrophils # 7.4 K/mm3 (1.8-7.7) 03/10/22 03:57 Seg Neutrophils # Man 18.5 K/mm3 (1.8-7.7) H 03/03/22 03:54 Band Neutrophils # 0.0 K/mm3 03/03/22 03:54 Lymphocytes # (Manual) 0.6 K/mm3 (1.2-5.4) L 03/03/22 03:54 Abs React Lymphs (Man) 0.0 K/mm3 03/03/22 03:54 Monocytes # (Manual) 0.4 K/mm3 (0.0-0.8) 03/03/22 03:54 Eosinophils # (Manual) 0.0 K/mm3 (0.0-0.4) 03/03/22 03:54 Basophils # (Manual) 0.0 K/mm3 (0.0-0.1) 03/03/22 03:54 Metamyelocytes # 0.0 K/mm3 03/03/22 03:54 Myelocytes # 0.0 K/mm3 03/03/22 03:54 Promyelocytes # 0.0 K/mm3 03/03/22 03:54 Blast Cells # 0.0 K/mm3 03/03/22 03:54 WBC Morphology Not Reportable 03/03/22 03:54 Hypersegmented Neuts Not Reportable 03/03/22 03:54 Hyposegmented Neuts Not Reportable 03/03/22 03:54 Hypogranular Neuts Not Reportable 03/03/22 03:54 Smudge Cells Not Reportable 03/03/22 03:54 Toxic Granulation Not Reportable 03/03/22 03:54 Toxic Vacuolation Not Reportable 03/03/22 03:54 Dohle Bodies Not Reportable 03/03/22 03:54 Pelger-Huet Anomaly Not Reportable 03/03/22 03:54 Lakshmi Rods Not Reportable 03/03/22 03:54 Platelet Estimate Consistent w auto 03/03/22 03:54 Clumped Platelets Not Reportable 03/03/22 03:54 Plt Clumps, EDTA Not Reportable 03/03/22 03:54 Large Platelets Not Reportable 03/03/22 03:54 Giant Platelets Not Reportable 03/03/22 03:54 Platelet Satelliting Not Reportable 03/03/22 03:54 Plt Morphology Comment Not Reportable 03/03/22 03:54 RBC Morphology Not Reportable 03/03/22 03:54 Dimorphic RBCs Not Reportable 03/03/22 03:54 Polychromasia Not Reportable 03/03/22 03:54 Hypochromasia Not Reportable 03/03/22 03:54 Poikilocytosis Not Reportable 03/03/22 03:54 Anisocytosis 1+ 03/03/22 03:54 Microcytosis Not Reportable 03/03/22 03:54 Macrocytosis Not Reportable 03/03/22 03:54 Spherocytes Not Reportable 03/03/22 03:54 Pappenheimer Bodies Not Reportable 03/03/22 03:54 Sickle Cells Not Reportable 03/03/22 03:54 Target Cells Not Reportable 03/03/22 03:54 Tear Drop Cells Not Reportable 03/03/22 03:54 Ovalocytes Not Reportable 03/03/22 03:54 Helmet Cells Not Reportable 03/03/22 03:54 [place] Bodies Not Reportable 03/03/22 03:54 [place] Rings Not Reportable 03/03/22 03:54 [place] Cells Not Reportable 03/03/22 03:54 Bite Cells Not Reportable 03/03/22 03:54 Crenated Cell Not Reportable 03/03/22 03:54 Elliptocytes Not Reportable 03/03/22 03:54 Acanthocytes (Spur) Not Reportable 03/03/22 03:54 Rouleaux Not Reportable 03/03/22 03:54 Hemoglobin C Crystals Not Reportable 03/03/22 03:54 Schistocytes Not Reportable 03/03/22 03:54 Malaria parasites Not Reportable 03/03/22 03:54 Cash Bodies Not Reportable 03/03/22 03:54 Hem Pathologist Commnt No 03/03/22 03:54 PT 16.2 Sec. (12.2-14.9) H 03/11/22 04:02 INR 1.16 (0.87-1.13) H 03/11/22 04:02 ABG pH 7.392 pH Units (7.350-7.450) 03/22/22 14:25 ABG pCO2 54.4 mm Hg 03/22/22 14:25 ABG pO2 150.5 mm Hg (80.0-90.0) H 03/22/22 14:25 ABG HCO3 32.4 mmol/L (20.0-26.0) H 03/22/22 14:25 ABG O2 Saturation 98.8 % (95.0-99.0) 03/22/22 14:25 ABG O2 Content 15.8 (0.0-44) 03/22/22 14:25 ABG Base Excess 6.2 mmol/L (-2.0-3.0) H 03/22/22 14:25 ABG Hemoglobin 11.4 gm/dl (14.0-18.0) L 03/22/22 14:25 ABG Carboxyhemoglobin 1.6 % (0.0-5.0) 03/22/22 14:25 ABG Methemoglobin 0.6 % (0.0-1.5) 03/22/22 14:25 Oxyhemoglobin 96.6 % (95.0-99.0) 03/22/22 14:25 FiO2 30 % 03/22/22 14:25 Sodium 136 mmol/L (137-145) L 03/27/22 03:52 Potassium 4.2 mmol/L (3.6-5.0) 03/27/22 03:52 Chloride 98.6 mmol/L (98-107) 03/27/22 03:52 Carbon Dioxide 32 mmol/L (22-30) H 03/27/22 03:52 Anion Gap 10 mmol/L 03/27/22 03:52 BUN 23 mg/dL (9-20) H 03/27/22 03:52 Creatinine 0.6 mg/dL (0.8-1.3) L 03/27/22 03:52 Estimated GFR > 60 ml/min 03/27/22 03:52 BUN/Creatinine Ratio 38 % 03/27/22 03:52 Glucose 98 mg/dL (75-100) 03/27/22 03:52 POC Glucose 130 mg/dL (70-105) H 03/26/22 18:08 Lactic Acid 1.20 mmol/L (0.7-2.0) 02/18/22 21:02 Calcium 8.2 mg/dL (8.4-10.2) L 03/27/22 03:52 Phosphorus 3.50 mg/dL (2.5-4.5) 03/20/22 04:09 Magnesium 2.00 mg/dL (1.7-2.3) 03/20/22 04:09 Total Bilirubin 0.30 mg/dL (0.1-1.2) 03/10/22 03:57 AST 17 units/L (5-40) 03/10/22 03:57 ALT 18 units/L (7-56) 03/10/22 03:57 Alkaline Phosphatase 89 units/L (35-129) 03/10/22 03:57 Ammonia 14.0 umol/L (25-60) L 02/18/22 23:22 Troponin T < 0.010 ng/mL (0.00-0.029) 02/18/22 21:02 Total Protein 6.6 g/dL (6.3-8.2) 03/10/22 03:57 Albumin 1.9 g/dL (3.9-5) L 03/10/22 03:57 Albumin/Globulin Ratio 0.4 % 03/10/22 03:57 Urine Color Yellow (Yellow) 03/27/22 08:36 Urine Turbidity Cloudy (Clear) 03/27/22 08:36 Urine pH 7.0 (5.0-7.0) 02/18/22 Unknown Ur Specific [place] 1.015 (1.003-1.030) 02/18/22 Unknown Specific [place] (Man) 1.020 (1.003-1.030) 03/27/22 08:36 Urine Protein <15 mg/dl mg/dL (Negative) 02/18/22 Unknown Ur Protein (Man) 1+ mg/dL (Negative) 03/27/22 08:36 Urine Glucose (UA) Negative mg/dL (Negative) 02/18/22 Unknown Urine Ketones Negative mg/dL (Negative) 02/18/22 Unknown Ur Ketones (Man) Negative (Negative) 03/27/22 08:36 Urine Blood Trace (Negative) 02/18/22 Unknown Urine Nitrite Negative (Negative) 02/18/22 Unknown Ur Nitrite (Man) Negative (Negative) 03/27/22 08:36 Ur Reducing Substances Not Reportable 03/27/22 08:36 Urine Bilirubin Negative (Negative) 02/18/22 Unknown Urine Bilirubin (Man) Negative (Negative) 03/27/22 08:36 Urine Ictotest Not Reportable 03/27/22 08:36 Urine Urobilinogen < 2.0 mg/dL (<2.0) 02/18/22 Unknown Ur Leukocyte Esterase Negative (Negative) 02/18/22 Unknown Leukocyte Esterase (Man) Moderate (Negative) 03/27/22 08:36 Urine WBC (Auto) > 182.0 /HPF (0.0-6.0) H 03/27/22 08:36 Urine RBC (Auto) 9.0 /HPF (0.0-6.0) 03/27/22 08:36 U Epithel Cells (Auto) < 1.0 /HPF (0-13.0) 03/27/22 08:36 Urine RBC (Manual) 1+ (Negative) 03/27/22 08:36 Urine Mucus Few /HPF 03/27/22 08:36 Urine Yeast (Budding) 2+ /HPF 03/27/22 08:36 Urine Opiates Screen Negative 02/18/22 Unknown Urine Methadone Screen Negative 02/18/22 Unknown Ur Barbiturates Screen Negative 02/18/22 Unknown Ur Phencyclidine Scrn Negative 02/18/22 Unknown Ur Amphetamines Screen Negative 02/18/22 Unknown U Benzodiazepines Scrn Negative 02/18/22 Unknown Urine Cocaine Screen Negative 02/18/22 Unknown U Marijuana (THC) Screen Negative 02/18/22 Unknown Drugs of Abuse Note Disclamer 02/18/22 Unknown Plasma/Serum Alcohol < 0.01 % (0-0.07) 02/18/22 21:02 Summers/IV: Voiding Method Indwelling Catheter Active Medications - Current Medications Current Medications: Generic Name Dose Route Start Last Admin Trade Name Freq PRN Reason Stop Dose Admin Acetaminophen 650 mg 03/03/22 09:00 Acetaminophen 325 Mg/10.15 Ml Oral Liqd Unit Dose FEEDTUBE Q4H PRN Pain, Mild (1-3); TEMP > 100.4 Albuterol 2.5 mg 03/12/22 20:00 03/27/22 07:51 Albuterol 2.5 Mg/3 Ml Nebu IH 2.5 mg Q6HRT LAZARUS Administration Famotidine 20 mg 02/25/22 10:00 03/27/22 09:30 Famotidine 20 Mg Tab FEEDTUBE 20 mg BID LAZARUS Administration Heparin Sodium (Porcine) 5,000 unit 02/19/22 06:00 03/27/22 06:13 Heparin 5,000 Unit/1 Ml Vial SUB-Q 5,000 unit Q8HR LAZARUS Administration Hydrophilic Ointment 1 applic 02/24/22 15:05 Lip Therapy Vaseline TP Q2HR PRN Dry Lips Ceftriaxone Sodium 1 gm in 50 mls @ 100 mls/hr 03/27/22 11:00 03/27/22 11:22 Rocephin/Ns 1 Gm/50 Ml IV 03/29/22 11:29 Infused Q24H LAZARUS Infusion Protocol Levetiracetam 500 mg 02/25/22 22:00 03/27/22 09:29 Levetiracetam 500 Mg/5 Ml Oral Liqd FEEDTUBE 500 mg BID LAZARUS Administration Levothyroxine Sodium 25 mcg 02/26/22 06:00 03/27/22 06:13 Levothyroxine 25 Mcg Tab FEEDTUBE 25 mcg QAM@0600 LAZARUS Administration Magnesium Hydroxide 30 ml 02/19/22 02:02 Magnesium Hydroxide (Mom) Oral Liqd Udc PO Q4H PRN Constipation Midodrine 2.5 mg 03/19/22 12:00 03/27/22 12:38 Midodrine 2.5 Mg Tab FEEDTUBE 2.5 mg TID@0800,1200,1600 LAZARUS Administration Multi-Ingred Cream/Lotion/Oil/Oint 1 applic 02/24/22 15:05 Mineral Oil/Petrolatum, White Ophth Oint 3.5 Gm OU Q4HR PRN Dry Eye(s) Ondansetron HCl 4 mg 02/19/22 02:02 Ondansetron 4 Mg/2 Ml Inj IV Q8H PRN Nausea And Vomiting Pravastatin Sodium 40 mg 02/25/22 22:00 03/26/22 21:42 Pravastatin 40 Mg Tab FEEDTUBE 40 mg QHS LAZARUS Administration Senna/Docusate Sodium 1 tab 02/24/22 22:00 03/27/22 09:30 Sennosides/Docusate Sodium 8.6/50 Mg Tab FEEDTUBE 1 tab BID LAZARUS Administration Sodium Chloride 10 ml 02/19/22 10:00 03/27/22 09:30 Sodium Chloride 0.9% 10 Ml Flush Syringe IV 10 ml BID LAZARUS Administration Sodium Chloride 10 ml 02/19/22 02:02 03/03/22 14:21 Sodium Chloride 0.9% 10 Ml Flush Syringe IV 10 ml PRN PRN Administration LINE FLUSH Nutrition/Malnutrition Assess - Dietary Evaluation Nutrition/Malnutrition Findings: Nutrition Notes Start: 02/19/22 14:29 Freq: Status: Active Protocol: Document 03/21/22 15:43 [facility] (Rec: 03/21/22 15:45 [facility] [id number]) Nutrition Notes Initial or Follow up Reassessment Current Diagnosis Hypertension,Respiratory Failure,Hyperlipidemia Other Pertinent Diagnosis Asp pneu, acute encephalopathy , seizure d/o, partial blindness Current Diet TF - Vital AF 1.2 at 50ml/hr Labs/Tests Reviewed Pertinent Medications Reviewed Height 5 ft 3 in Weight 63.2 kg Calvin Body Weight (kg) 56.36 BMI 24.7 Weight Status Appropriate Subjective/Other Information Pt remains on vent support; still awaiting decision on guardianship for trach/PEG placement. Pt continues to tolerate TF at goal rate. Last BM was 03/18 per RN verbal report. Percent of energy/protein needs met: 90% energy 100% pro Burn Absent Trauma Absent #1 Nutrition Diagnosis Inadequate oral intake Diagnosis Progress(for reassessment Continues documentation) Is patient on ventilator? Yes Is Patient Ambulatory and/or Out of Bed No REE-([facility]conf[facility]) 1591.008 Calculation [facility] Additional Notes Pro needs 1.2-2g/k-126g/ day Fluid needs 1ml/kcal Nutrition Intervention Nutrition Support: Continue Vital AF 1.2 at 50ml/ hr with 75ml water flush q4h. Kcal 1,440 Protein (gm) 90 Carbohydrates (gm) 133 Fat (gm) 65 Fluid (mL) 973 Fiber (gm) 6 Goal #1 TF tolerance Goal #2 TF to meet at least 75% energy and pro needs Follow-Up By: 03/28/22 Additional Comments F/U: stable TF, trach/PEG placement, vent status, wt, BM <SILVIA BUCHANAN - Last Filed: 04/01/22 10:48> History Interval history: I saw and evaluated the patient. I agree with the findings and the plan of care as documented in the Nurse Practitioner's~note, with the following corrections and additions. Hospitalist Physical - Constitutional Vitals: Temp Pulse Resp BP Pulse Ox 97.9 F 71 14 121/68 97 04/01/22 07:09 04/01/22 07:51 04/01/22 07:51 04/01/22 07:43 04/01/22 07:43 HEART Score - HEART Score Troponin: Troponin T < 0.010 ng/mL (0.00-0.029) 02/18/22 21:02 Results - Labs CBC & Chem 7: 03/31/22 03:56 03/31/22 03:56 Labs: Laboratory Last Values WBC 9.7 K/mm3 (4.5-11.0) 03/31/22 03:56 RBC 3.08 M/mm3 (3.65-5.03) L 03/31/22 03:56 Hgb 9.5 gm/dl (11.8-15.2) L 03/31/22 03:56 Hct 30.1 % (35.5-45.6) L 03/31/22 03:56 MCV 98 fl (84-94) H 03/31/22 03:56 MCH 31 pg (28-32) 03/31/22 03:56 MCHC 32 % (32-34) 03/31/22 03:56 RDW 17.7 % (13.2-15.2) H 03/31/22 03:56 Plt Count 331 K/mm3 (140-440) 03/31/22 03:56 Lymph % (Auto) 7.5 % (13.4-35.0) L 03/28/22 04:06 Stanley % (Auto) 10.5 % (0.0-7.3) H 03/28/22 04:06 Eos % (Auto) 0.9 % (0.0-4.3) 03/28/22 04:06 Baso % (Auto) 0.4 % (0.0-1.8) 03/28/22 04:06 Lymph # (Auto) 1.1 K/mm3 (1.2-5.4) L 03/28/22 04:06 Stanley # (Auto) 1.5 K/mm3 (0.0-0.8) H 03/28/22 04:06 Eos # (Auto) 0.1 K/mm3 (0.0-0.4) 03/28/22 04:06 Baso # (Auto) 0.1 K/mm3 (0.0-0.1) 03/28/22 04:06 Add Manual Diff Complete 03/03/22 03:54 Total Counted 100 03/03/22 03:54 Seg Neutrophils % 80.7 % (40.0-70.0) H 03/28/22 04:06 Seg Neuts % (Manual) 95.0 % (40.0-70.0) H 03/03/22 03:54 Band Neutrophils % 0 % 03/03/22 03:54 Lymphocytes % (Manual) 3.0 % (13.4-35.0) L 03/03/22 03:54 Reactive Lymphs % (Man) 0 % 03/03/22 03:54 Monocytes % (Manual) 2.0 % (0.0-7.3) 03/03/22 03:54 Eosinophils % (Manual) 0 % (0.0-4.3) 03/03/22 03:54 Basophils % (Manual) 0 % (0.0-1.8) 03/03/22 03:54 Metamyelocytes % 0 % 03/03/22 03:54 Myelocytes % 0 % 03/03/22 03:54 Promyelocytes % 0 % 03/03/22 03:54 Blast Cells % 0 % 03/03/22 03:54 Nucleated RBC % Not Reportable 03/03/22 03:54 Seg Neutrophils # 11.4 K/mm3 (1.8-7.7) H 03/28/22 04:06 Seg Neutrophils # Man 18.5 K/mm3 (1.8-7.7) H 03/03/22 03:54 Band Neutrophils # 0.0 K/mm3 03/03/22 03:54 Lymphocytes # (Manual) 0.6 K/mm3 (1.2-5.4) L 03/03/22 03:54 Abs React Lymphs (Man) 0.0 K/mm3 03/03/22 03:54 Monocytes # (Manual) 0.4 K/mm3 (0.0-0.8) 03/03/22 03:54 Eosinophils # (Manual) 0.0 K/mm3 (0.0-0.4) 03/03/22 03:54 Basophils # (Manual) 0.0 K/mm3 (0.0-0.1) 03/03/22 03:54 Metamyelocytes # 0.0 K/mm3 03/03/22 03:54 Myelocytes # 0.0 K/mm3 03/03/22 03:54 Promyelocytes # 0.0 K/mm3 03/03/22 03:54 Blast Cells # 0.0 K/mm3 03/03/22 03:54 WBC Morphology Not Reportable 03/03/22 03:54 Hypersegmented Neuts Not Reportable 03/03/22 03:54 Hyposegmented Neuts Not Reportable 03/03/22 03:54 Hypogranular Neuts Not Reportable 03/03/22 03:54 Smudge Cells Not Reportable 03/03/22 03:54 Toxic Granulation Not Reportable 03/03/22 03:54 Toxic Vacuolation Not Reportable 03/03/22 03:54 Dohle Bodies Not Reportable 03/03/22 03:54 Pelger-Huet Anomaly Not Reportable 03/03/22 03:54 Lakshmi Rods Not Reportable 03/03/22 03:54 Platelet Estimate Consistent w auto 03/03/22 03:54 Clumped Platelets Not Reportable 03/03/22 03:54 Plt Clumps, EDTA Not Reportable 03/03/22 03:54 Large Platelets Not Reportable 03/03/22 03:54 Giant Platelets Not Reportable 03/03/22 03:54 Platelet Satelliting Not Reportable 03/03/22 03:54 Plt Morphology Comment Not Reportable 03/03/22 03:54 RBC Morphology Not Reportable 03/03/22 03:54 Dimorphic RBCs Not Reportable 03/03/22 03:54 Polychromasia Not Reportable 03/03/22 03:54 Hypochromasia Not Reportable 03/03/22 03:54 Poikilocytosis Not Reportable 03/03/22 03:54 Anisocytosis 1+ 03/03/22 03:54 Microcytosis Not Reportable 03/03/22 03:54 Macrocytosis Not Reportable 03/03/22 03:54 Spherocytes Not Reportable 03/03/22 03:54 Pappenheimer Bodies Not Reportable 03/03/22 03:54 Sickle Cells Not Reportable 03/03/22 03:54 Target Cells Not Reportable 03/03/22 03:54 Tear Drop Cells Not Reportable 03/03/22 03:54 Ovalocytes Not Reportable 03/03/22 03:54 Helmet Cells Not Reportable 03/03/22 03:54 [place] Bodies Not Reportable 03/03/22 03:54 [place] Rings Not Reportable 03/03/22 03:54 [place] Cells Not Reportable 03/03/22 03:54 Bite Cells Not Reportable 03/03/22 03:54 Crenated Cell Not Reportable 03/03/22 03:54 Elliptocytes Not Reportable 03/03/22 03:54 Acanthocytes (Spur) Not Reportable 03/03/22 03:54 Rouleaux Not Reportable 03/03/22 03:54 Hemoglobin C Crystals Not Reportable 03/03/22 03:54 Schistocytes Not Reportable 03/03/22 03:54 Malaria parasites Not Reportable 03/03/22 03:54 Cash Bodies Not Reportable 03/03/22 03:54 Hem Pathologist Commnt No 03/03/22 03:54 PT 16.2 Sec. (12.2-14.9) H 03/11/22 04:02 INR 1.16 (0.87-1.13) H 03/11/22 04:02 ABG pH 7.392 pH Units (7.350-7.450) 03/22/22 14:25 ABG pCO2 54.4 mm Hg 03/22/22 14:25 ABG pO2 150.5 mm Hg (80.0-90.0) H 03/22/22 14:25 ABG HCO3 32.4 mmol/L (20.0-26.0) H 03/22/22 14:25 ABG O2 Saturation 98.8 % (95.0-99.0) 03/22/22 14:25 ABG O2 Content 15.8 (0.0-44) 03/22/22 14:25 ABG Base Excess 6.2 mmol/L (-2.0-3.0) H 03/22/22 14:25 ABG Hemoglobin 11.4 gm/dl (14.0-18.0) L 03/22/22 14:25 ABG Carboxyhemoglobin 1.6 % (0.0-5.0) 03/22/22 14:25 ABG Methemoglobin 0.6 % (0.0-1.5) 03/22/22 14:25 Oxyhemoglobin 96.6 % (95.0-99.0) 03/22/22 14:25 FiO2 30 % 03/22/22 14:25 Sodium 135 mmol/L (137-145) L 03/31/22 03:56 Potassium 4.5 mmol/L (3.6-5.0) 03/31/22 03:56 Chloride 97.4 mmol/L (98-107) L 03/31/22 03:56 Carbon Dioxide 31 mmol/L (22-30) H 03/31/22 03:56 Anion Gap 11 mmol/L 03/31/22 03:56 BUN 18 mg/dL (9-20) 03/31/22 03:56 Creatinine 0.5 mg/dL (0.8-1.3) L 03/31/22 03:56 Estimated GFR > 60 ml/min 03/31/22 03:56 BUN/Creatinine Ratio 36 % 03/31/22 03:56 Glucose 102 mg/dL (75-100) H 03/31/22 03:56 POC Glucose 118 mg/dL (70-105) H 04/01/22 00:09 Lactic Acid 1.20 mmol/L (0.7-2.0) 02/18/22 21:02 Calcium 8.8 mg/dL (8.4-10.2) 03/31/22 03:56 Phosphorus 3.50 mg/dL (2.5-4.5) 03/20/22 04:09 Magnesium 2.00 mg/dL (1.7-2.3) 03/20/22 04:09 Total Bilirubin 0.30 mg/dL (0.1-1.2) 03/10/22 03:57 AST 17 units/L (5-40) 03/10/22 03:57 ALT 18 units/L (7-56) 03/10/22 03:57 Alkaline Phosphatase 89 units/L (35-129) 03/10/22 03:57 Ammonia 14.0 umol/L (25-60) L 02/18/22 23:22 Troponin T < 0.010 ng/mL (0.00-0.029) 02/18/22 21:02 Total Protein 6.6 g/dL (6.3-8.2) 03/10/22 03:57 Albumin 1.9 g/dL (3.9-5) L 03/10/22 03:57 Albumin/Globulin Ratio 0.4 % 03/10/22 03:57 Urine Color Yellow (Yellow) 03/27/22 08:36 Urine Turbidity Cloudy (Clear) 03/27/22 08:36 Urine pH 7.0 (5.0-7.0) 02/18/22 Unknown Ur Specific [place] 1.015 (1.003-1.030) 02/18/22 Unknown Specific [place] (Man) 1.020 (1.003-1.030) 03/27/22 08:36 Urine Protein <15 mg/dl mg/dL (Negative) 02/18/22 Unknown Ur Protein (Man) 1+ mg/dL (Negative) 03/27/22 08:36 Urine Glucose (UA) Negative mg/dL (Negative) 02/18/22 Unknown Urine Ketones Negative mg/dL (Negative) 02/18/22 Unknown Ur Ketones (Man) Negative (Negative) 03/27/22 08:36 Urine Blood Trace (Negative) 02/18/22 Unknown Urine Nitrite Negative (Negative) 02/18/22 Unknown Ur Nitrite (Man) Negative (Negative) 03/27/22 08:36 Ur Reducing Substances Not Reportable 03/27/22 08:36 Urine Bilirubin Negative (Negative) 02/18/22 Unknown Urine Bilirubin (Man) Negative (Negative) 03/27/22 08:36 Urine Ictotest Not Reportable 03/27/22 08:36 Urine Urobilinogen < 2.0 mg/dL (<2.0) 02/18/22 Unknown Ur Leukocyte Esterase Negative (Negative) 02/18/22 Unknown Leukocyte Esterase (Man) Moderate (Negative) 03/27/22 08:36 Urine WBC (Auto) > 182.0 /HPF (0.0-6.0) H 03/27/22 08:36 Urine RBC (Auto) 9.0 /HPF (0.0-6.0) 03/27/22 08:36 U Epithel Cells (Auto) < 1.0 /HPF (0-13.0) 03/27/22 08:36 Urine RBC (Manual) 1+ (Negative) 03/27/22 08:36 Urine Mucus Few /HPF 03/27/22 08:36 Urine Yeast (Budding) 2+ /HPF 03/27/22 08:36 Urine Opiates Screen Negative 02/18/22 Unknown Urine Methadone Screen Negative 02/18/22 Unknown Ur Barbiturates Screen Negative 02/18/22 Unknown Ur Phencyclidine Scrn Negative 02/18/22 Unknown Ur Amphetamines Screen Negative 02/18/22 Unknown U Benzodiazepines Scrn Negative 02/18/22 Unknown Urine Cocaine Screen Negative 02/18/22 Unknown U Marijuana (THC) Screen Negative 02/18/22 Unknown Drugs of Abuse Note Disclamer 02/18/22 Unknown Plasma/Serum Alcohol < 0.01 % (0-0.07) 02/18/22 21:02 Summers/IV: Voiding Method Indwelling Catheter Active Medications - Current Medications Current Medications: Generic Name Dose Route Start Last Admin Trade Name Freq PRN Reason Stop Dose Admin Acetaminophen 650 mg 03/03/22 09:00 Acetaminophen 325 Mg/10.15 Ml Oral Liqd Unit Dose FEEDTUBE Q4H PRN Pain, Mild (1-3); TEMP > 100.4 Albuterol 2.5 mg 03/12/22 20:00 04/01/22 07:50 Albuterol 2.5 Mg/3 Ml Nebu IH 2.5 mg Q6HRT LAZARUS Administration Famotidine 20 mg 02/25/22 10:00 04/01/22 09:20 Famotidine 20 Mg Tab FEEDTUBE 20 mg BID LAZARUS Administration Heparin Sodium (Porcine) 5,000 unit 02/19/22 06:00 04/01/22 05:22 Heparin 5,000 Unit/1 Ml Vial SUB-Q 5,000 unit Q8HR LAZARUS Administration Levetiracetam 500 mg 02/25/22 22:00 04/01/22 09:20 Levetiracetam 500 Mg/5 Ml Oral Liqd FEEDTUBE 500 mg BID LAZARUS Administration Levothyroxine Sodium 25 mcg 02/26/22 06:00 04/01/22 05:22 Levothyroxine 25 Mcg Tab FEEDTUBE 25 mcg QAM@0600 LAZARUS Administration Magnesium Hydroxide 30 ml 02/19/22 02:02 Magnesium Hydroxide (Mom) Oral Liqd Udc PO Q4H PRN Constipation Midodrine 2.5 mg 03/19/22 12:00 04/01/22 09:20 Midodrine 2.5 Mg Tab FEEDTUBE 2.5 mg TID@0800,1200,1600 LAZARUS Administration Multi-Ingred Cream/Lotion/Oil/Oint 1 applic 02/24/22 15:05 Mineral Oil/Petrolatum, White Ophth Oint 3.5 Gm OU Q4HR PRN Dry Eye(s) Ondansetron HCl 4 mg 02/19/22 02:02 Ondansetron 4 Mg/2 Ml Inj IV Q8H PRN Nausea And Vomiting Pravastatin Sodium 40 mg 02/25/22 22:00 03/31/22 21:01 Pravastatin 40 Mg Tab FEEDTUBE 40 mg QHS LAZARUS Administration Senna/Docusate Sodium 1 tab 02/24/22 22:00 03/31/22 23:35 Sennosides/Docusate Sodium 8.6/50 Mg Tab FEEDTUBE 1 tab BID LAZARUS Administration Sodium Chloride 10 ml 02/19/22 10:00 04/01/22 09:20 Sodium Chloride 0.9% 10 Ml Flush Syringe IV 10 ml BID LAZARUS Administration Sodium Chloride 10 ml 02/19/22 02:02 03/03/22 14:21 Sodium Chloride 0.9% 10 Ml Flush Syringe IV 10 ml PRN PRN Administration LINE FLUSH Nutrition/Malnutrition Assess - Dietary Evaluation Nutrition/Malnutrition Findings: Nutrition Notes Start: 02/19/22 1 4:29 Freq: Status: Active Protocol: Document 03/31/22 14:18 IVAN (Rec: 03/31/22 14:23 IVAN [email or web address]) Nutrition Notes Initial or Follow up Reassessment Current Diagnosis Hypertension,Respiratory Failure,Hyperlipidemia Other Pertinent Diagnosis Asp pneu, acute encephalopathy , seizure d/o, partial blindness Current Diet TF - Promote at 65ml/hr Labs/Tests Na 135 CO2 - 31 Pertinent Medications Reviewed Height 5 ft 3 in Weight 63.2 kg Calvin Body Weight (kg) 56.36 BMI 24.7 Subjective/Other Information Pt remains on vent support; still awaiting decision on guardianship for trach/PEG placement. Observed Promote infusing at 50ml/hr; RN informed of goal rate. BM x 1 on yesterday. Percent of energy/protein needs met: 75% energy 99% pro Burn Absent Trauma Absent #1 Nutrition Diagnosis Inadequate oral intake Diagnosis Progress(for reassessment Continues documentation) Is patient on ventilator? Yes Is Patient Ambulatory and/or Out of Bed No REE-([facility]-confined to bed) [phone] Calculation Used for Recommendations [facility] Additional Notes Pro needs 1.2-2g/k-126g/ day Fluid needs 1ml/kcal Nutrition Intervention Nutrition Support: Continue Promote to goal rate of 65ml/hr. Provide 50ml water flush q4h. Kcal 1,560 Protein (gm) 98 Carbohydrates (gm) 203 Fat (gm) 41 Fluid (mL) 1,309 Fiber (gm) 0 Goal #1 TF tolerance Goal #2 TF to meet 75%-100% energy and pro needs Goal #3 Wound healing Follow-Up By: 04/04/22 Additional Comments F/U: TF goal rate/tolerance
--- NOTE | 2022-03-27 13:34 | XRay Report ---
CHEST 1 VIEW 03/27/2022 11:00 AM INDICATION / CLINICAL INFORMATION: leukocytosis. COMPARISON: 03/24/2022 FINDINGS: SUPPORT DEVICES: The endotracheal tube terminates just above the colt, consider retraction by 2 to 3 cm. Nasogastric tube is followed to the stomach but the distal tip is not included. HEART / MEDIASTINUM: No significant abnormality. LUNGS / PLEURA: Hazy opacity is developed in the lingula which could represent atelectatic changes or infiltrate. The right lung remains clear. No pneumothorax. ADDITIONAL FINDINGS: No significant additional findings. IMPRESSION: 1. New lingular opacity. This could represent early infiltrate. 2. The endotracheal tube terminates just above the colt. See above. Signer Name: Krishna Coreas Jr, MD Signed: 03/27/2022 1:30 PM Workstation Name: [id number]
[2022-03-27] MEDS: PRAVASTATIN 40 MG TAB FEEDTUBE SCH (22:15)
[2022-03-28 04:49] LABS: Basophils # (Auto) 0.1 K/mm3 (0.0-0.1); Basophils % (Auto) 0.4 % (0.0-1.8); Eosinophils # (Auto) 0.1 K/mm3 (0.0-0.4); Eosinophils % (Auto) 0.9 % (0.0-4.3); Hematocrit 26.8 % (35.5-45.6); Hemoglobin 8.6 gm/dl (11.8-15.2); Lymphocytes # (Auto) 1.1 K/mm3 (1.2-5.4); Lymphocytes % (Auto) 7.5 % (13.4-35.0); Mean Corpuscular HGB Conc 32 % (32-34); Mean Corpuscular Volume 97 fl (84-94); Monocytes # (Auto) 1.5 K/mm3 (0.0-0.8); Monocytes % (Auto) 10.5 % (0.0-7.3); Platelet Count 297 K/mm3 (140-440); Red Blood Count 2.76 M/mm3 (3.65-5.03); Red Cell Distribution Width 17.4 % (13.2-15.2)
[2022-03-28] MEDS: ALBUTEROL 2.5 MG/3 ML NEBU IH SCH ×4 (04:59→20:23)
[2022-03-28] MEDS: LEVOTHYROXINE 25 MCG TAB FEEDTUBE SCH (06:32)
[2022-03-28] MEDS: HEPARIN 5,000 UNIT/1 ML VIAL SUB-Q SCH ×3 (06:33→21:01)
[2022-03-28] MEDS: MIDODRINE 2.5 MG TAB FEEDTUBE SCH ×3 (08:03→16:50)
[2022-03-28] MEDS: SENNOSIDES/DOCUSATE SODIUM 8.6/50 MG TAB FEEDTUBE SCH ×2 (10:28→21:01)
[2022-03-28] MEDS: FAMOTIDINE 20 MG TAB FEEDTUBE SCH ×2 (10:28→21:01)
[2022-03-28] MEDS: levETIRAcetam 500 MG/5 ML ORAL LIQD FEEDTUBE SCH ×2 (10:28→21:03)
[2022-03-28] MEDS: cefTRIAXone/NS 1 GM/50 ML 1 GM/50 ML BAG IV SCH (10:37)
--- NOTE | 2022-03-28 11:55 | Progress Note ---
Assessment and Plan 61 y/o male with abnormal CT of chest. 03/28/22: Day 32 of intubation. WBC better. No fever. Still awaiting hospital and courts. 03/27/22: Day 31 of intubation. Given increase in WBC will treat empirically with Rocephin. Follow up urine cultures. CXR appears stable, await official read. Guarded prognosis. 03/26/22: Day 30 of Intubation. Daily PSV trials. no new recommendations. 03/25/22: Day 29 of intubation. RT to try PSV this am, hesistant given low sats but improved with suctioning. Still no word from the hospital in regards to guardianship. I do not feel comfortable with attempting extubation again on this patient given his quick failure and difficult re-intubation. 03/24/22: Day 28 of intubation. reviewed my partners notes from the weekend. Glad patient is tolerating PSV however do not see conventional extubation in the near future given patient's mental status and how fast he failed extubation (within an hour) on his first attempt. Patient was also a difficult re- intubation. Follow up with CM and hospital tomorrow. Continue supportive measures. 03/21/22: Day 25 of intubation. No new updates from the hospital about guardianship. Wound care saw on yesterday. Continue daily PSV trials as tolerated. Guarded prognosis. 03/20/22: Day 24 of intubation. No new recommendations. Still awaiting hospital update in regards to guardianship so that decisions can be made. Continue supportive measures. Wound care to see today. 03/19/22: Day 23 of intubation. Prognosis is still guarded. Will discuss with RT about attempts at daily PSV trials. Per notes, Wound care to see , wound was present on admission. 03/18/22: Day 22 of intubation. Prognosis remains guarded. Not able to obtain trach and peg with consent. Continue daily PSV trials as tolerated. 03/17/22: Day 21 of intubation. Still awaiting some form of decision maker for trach and peg placement. Guarded prognosis. 03/16/22: Day 20 of intubation. BP stable. Continue midodrine. Awaiting emergency guardianship from Court to obtain consent for trach and peg. Guarded prognosis. 03/15/22: Day 19 of intubation. BP now is marginal more regularly. Will give an additional liter bolus of LR now. May need to increase Midodrine back to 5. Needs trach in order to be safely weaned from ventilator. Will need peg tube placement in addition to trach. Prognosis remains guarded. Continue PSV trials as tolerated. 03/14/22: Day 18 of intubation. Vitals stable and mental status is unchanged. Still in need of tracheostomy as well as peg tube placement. No guardian appointed yet. 03/13/22: Day 17 of intubation. Agree with bolus and restarting of midodrine. was stopped previously secondary to bradycardia. If patient spikes temp, will culture blood and urine and repeat CXR. Continue daily PSV trials to assess ability for vent liberation. Continues to need trach however no family/guardian to provide consent. Guarded prognosis. 03/12/22: Day 16 of intubation. Following up with hospital in regards to francie lopez. Continue supportive measures. Guarded prognosis. 03/11/22: hospital now attempting to find emergency guardian to have consent for trach as ethics committee cannot comment on this matter so unable to help. Until then will remain intubated orally. Failed PSV yesterday, will continue to attempt on daily basis. Unfortunate situation. Guarded prognosis. 03/10/22: Today nuñez day 14 of intubation. Given patient's mental state and increased risk of aspiration, the likelihood of conventional extubation with success is very very slim and the patient has already failed this in an extrem gaye short period of time (less than 1 hour). I suspect that he will fail again if tried and could create more difficult reintubation as he was a difficult reintubation on his failed extubation attempt. To prevent further decline and potential complications of prolonged mechanical ventilation, will discuss with ethics and the hospital to use 2 physician consent to obtain trach and peg for this patient with hopes of liberating him from the mechanical ventilator. he has very minimal vent requirements but as been stated several times above, he continues to aspirate and failed conventional extubation almost immediately. Will consult surgery today. Dr. Mancia is prepared to sign consent as well as myself. Hopeful surgery will be on board with this. Continue supportive care for now. Attempt daily PSV trials. 03/07/22: Daily PSV trials as tolerated. Still no one to step up as adult nadia rosales. patient has now been intubated since 02/24/22 and is approaching the time period in which prolonged mechanical ventilation could lead to significant complications that could be detrimental to health (infection, stenosis, malacia etc). Will discuss again with ethics but in regards to medical necessity, may need to consider two physician consent if no one is able to claim responsibility for this patient. He is a full code and we must work in his best interest to prevent further harm. Continue supportive measures but he is not a candidate for conventional extubation given his mental state, despite being on minimal support. He has already failed this before. 03/06/22: PSV trials daily. Will discuss with RT. Spoke with ethics. Plan in place and awaiting on news from [facility] and count includes the [facility]. Continue supportive measures. Patient has been intubated since 02/24/22 and is approaching the 2 week shadi of intubation will need to make decisions soon to avoid unnecessary complications related to prolonged intubation. 03/05/22: Will follow up with ethics today. Awaiting some guidance about consent for trach and peg. This is a medical necessity to liberate patient from mechanical ventilation. Continue supportive measures. Ok with daily PSV trials 03/04/22: Follow up with ethics later this afternoon. Spoke with RT and patient does have cuff leak, will stop steroids. Stopping midodrine as BP is stable and bradycardia likely from this. 03/03/22: Await ethics eval. CM has spoken with state as well. Daily cuff leaks. Will start to wean steroids tomorrow. Midodrine can cause bradycardia. If continues or worsens will stop. Guarded prognosis. 03/02/22: Continue supportive measures. Await ethics consult before surgery consult for trach and peg. no further need for fluid boluses. Will continue stress dose steroids but have daily air leak checks by RT. Still will need trach, will not attempt extubation again. Guarded prognosis. 03/01/22: Patient is having increased urine output. This could be the cause of new onset hypotension. Will bolus 2 more liters of LR now and reassess. If this continues may need to work up for SIADH including repeat head CT. Follow up ethics review of case. Will need trach for ventilator liberation. Overall prognosis remains guarded. 02/28/22: Will obtain CT neck, noncontrast to look for airway edema or other possible etiologies for failure. Needs ethics consult as given patient's mental state, inability to clear secretions appropriately, will need trach now that he has failed extubation. However he has no family and no POA so no one to give consent. Continue supportive measures. Guarded prognosis. 02/27/22: Continue improvement of oxygenation. Will drop PEEP down today with goal of being at 6 by in the morning. Will repeat CT scan to confirm improvement as no endobronchial lesion was seen, but also to make sure no parenchymal mass. There was no evidence of extrinsic compression during bronch. Likely extubation tomorrow post CT. 02/26/22: Repeat CXR now. Wean Vent as tolerated. Hopeful extubation soon. Mucous removed. NO ENDOBRONCHIAL LESION/MASS 02/25/22: Bronch tentatively planned for tomorrow with therapeutic scope. Awaiting GI lab to give a time. NPO after midnight. Continue high PEEP 02/24/22: WIll attempt to bronch tomorrow morning. NPO after midnight. Just received word from GI lab they are not able to do bronch tomorrow. Cancel NPO order. Continue to feed patient. Repeat ABG in AM along with CXR. 02/21/22: No new pulm recs for today. Please obtain repeat CXR likely on Thursday. If patient happens to get worse, likely not a candidate for bipap given his weak cough and mental state and inability to communicate. If worsens and requires intubation, will bronch then under emergent circumstances if no POA or family is able to be located. Continue CPT. Will discuss with RT about NT suctioning. 02/20/22: Saw speech while on the floor. Would like patient to be NPO now. Discussed with nurse on floor and with IMS. Same recs pulm way as yesterday. Would benefit from bronch if able to get consent as this is not emergent. Continue CPT and q shift NT suctioning. Reviewed admission in the past and of note, patient was recently admitted last month and had a CXR done on the 29 of January that was normal. Given this patient's medical history and the history that I obtained from the nursing staff that at the [facility] he was eating solid foods, I suspect that this is aspiration, possibly of a foreign body (most likely food) with atelectasis of the right lower lobe. It is highly unlikely that a mass evolved in size in less than a months time and patient, besides age, has no real risk factors for lung carcinoma. Discussed with the nurse and unfortunately there is no identifiable person that is able to give consent. Bronchoscopy is needed in the case to evaluate to see if lung mass is there vs foreign body, but at this time not able to do. In the meanwhile will recommend the following. 1. Will order CPT with neb therapy 3x daily 2. Suggest maybe NT suctioning q shift. May use nasal trumpet, however do not leave this device in the patient 3. Aspiration precautions 4. Consider speech eval to assess swallowing. Will continue to follow. CCT 31 minutes. Subjective Date of service: 03/28/22 Principal diagnosis: f/u Acute respiratory failure Interval history: no acute events. Objective Vital Signs - 12hr 03/28/22 03/28/22 03/28/22 00:00 00:31 00:52 Temperature 98.4 F Pulse Rate 83 77 81 Pulse Rate [ Anterior Bilateral Throughout] Pulse Rate [ 84 From Monitor] Respiratory 18 14 Rate Respiratory Rate [Anterior Bilateral Throughout] Blood Pressure 109/61 109/61 109/61 O2 Sat by Pulse 96 98 99 Oximetry 03/28/22 03/28/22 03/28/22 01:00 01:31 02:00 Temperature Pulse Rate 83 77 79 Pulse Rate [ 80 Anterior Bilateral Throughout] Pulse Rate [ From Monitor] Respiratory 19 15 21 Rate Respiratory 14 Rate [Anterior Bilateral Throughout] Blood Pressure 120/69 120/69 114/54 O2 Sat by Pulse 97 97 95 Oximetry 03/28/22 03/28/22 03/28/22 02:31 03:00 03:31 Temperature Pulse Rate 78 79 77 Pulse Rate [ Anterior Bilateral Throughout] Pulse Rate [ From Monitor] Respiratory 15 16 15 Rate Respiratory Rate [Anterior Bilateral Throughout] Blood Pressure 120/69 106/59 106/59 O2 Sat by Pulse 99 97 100 Oximetry 03/28/22 03/28/22 03/28/22 04:00 04:31 04:59 Temperature 97.8 F Pulse Rate 78 76 79 Pulse Rate [ Anterior Bilateral Throughout] Pulse Rate [ 79 From Monitor] Respiratory 14 14 Rate Respiratory Rate [Anterior Bilateral Throughout] Blood Pressure 108/58 108/58 110/58 O2 Sat by Pulse 98 100 100 Oximetry 03/28/22 03/28/22 03/28/22 05:00 05:31 06:00 Temperature Pulse Rate 77 77 77 Pulse Rate [ Anterior Bilateral Throughout] Pulse Rate [ From Monitor] Respiratory 14 16 14 Rate Respiratory Rate [Anterior Bilateral Throughout] Blood Pressure 110/58 110/58 109/54 O2 Sat by Pulse 98 99 97 Oximetry 03/28/22 03/28/22 03/28/22 06:30 07:00 07:30 Temperature Pulse Rate 78 75 71 Pulse Rate [ Anterior Bilateral Throughout] Pulse Rate [ From Monitor] Respiratory 17 14 14 Rate Respiratory Rate [Anterior Bilateral Throughout] Blood Pressure 110/58 105/59 109/54 O2 Sat by Pulse 99 97 100 Oximetry 03/28/22 03/28/22 03/28/22 08:00 08:30 08:39 Temperature 99.4 F Pulse Rate 74 77 75 Pulse Rate [ Anterior Bilateral Throughout] Pulse Rate [ From Monitor] Respiratory 16 18 Rate Respiratory Rate [Anterior Bilateral Throughout] Blood Pressure 109/56 105/59 O2 Sat by Pulse 98 100 Oximetry 03/28/22 03/28/22 03/28/22 08:40 09:00 09:08 Temperature Pulse Rate 73 76 Pulse Rate [ Anterior Bilateral Throughout] Pulse Rate [ 77 From Monitor] Respiratory 14 15 Rate Respiratory Rate [Anterior Bilateral Throughout] Blood Pressure 108/54 108/54 O2 Sat by Pulse 95 98 100 Oximetry 03/28/22 03/28/22 03/28/22 09:11 09:16 09:30 Temperature Pulse Rate 77 77 Pulse Rate [ 77 Anterior Bilateral Throughout] Pulse Rate [ From Monitor] Respiratory 11 L 16 Rate Respiratory 13 Rate [Anterior Bilateral Throughout] Blood Pressure 108/54 108/54 O2 Sat by Pulse 100 100 Oximetry 03/28/22 03/28/22 03/28/22 10:00 10:30 11:00 Temperature Pulse Rate 76 77 86 Pulse Rate [ Anterior Bilateral Throughout] Pulse Rate [ From Monitor] Respiratory 15 13 19 Rate Respiratory Rate [Anterior Bilateral Throughout] Blood Pressure 114/56 114/56 123/58 O2 Sat by Pulse 97 99 97 Oximetry Constitutional: alert, other (critically ill on ventilator) Eyes: non-icteric ENT: oropharynx moist Neck: supple Effort: normal Ascultation: Bilateral: diminished breath sounds, rhonchi Cardiovascular: regular rate and rhythm (no mrg) Gastrointestinal: normoactive bowel sounds, soft, non-tender (on o2 vest in p lace), non-distended Integumentary: normal Extremities: no cyanosis, no edema Neurologic: other (awake) Psychiatric: other (unable to assess) CBC and BMP: 03/28/22 04:06 03/27/22 03:52 ABG, PT/INR, D-dimer: ABG ABG pH 7.392 pH Units (7.350-7.450) 03/22/22 14:25 ABG pCO2 54.4 mm Hg 03/22/22 14:25 ABG pO2 150.5 mm Hg (80.0-90.0) H 03/22/22 14:25 ABG O2 Saturation 98.8 % (95.0-99.0) 03/22/22 14:25 PT/INR, D-dimer PT 16.2 Sec. (12.2-14.9) H 03/11/22 04:02 INR 1.16 (0.87-1.13) H 03/11/22 04:02 Abnormal lab findings: Abnormal Labs 02/18/22 02/18/22 02/18/22 19:34 21:02 21:02 WBC RBC Hgb Hct MCV 101 H MCH 34 H MCHC RDW 16.1 H Lymph % (Auto) [place] % (Auto) 12.4 H Lymph # (Auto) [place] # (Auto) 1.2 H Seg Neutrophils % 73.0 H Seg Neuts % (Manual) Lymphocytes % (Manual) Seg Neutrophils # Seg Neutrophils # Man Lymphocytes # (Manual) PT 16.9 H INR 1.20 H ABG pH ABG pO2 ABG HCO3 ABG O2 Saturation ABG Base Excess ABG Hemoglobin Oxyhemoglobin Sodium Potassium Chloride Carbon Dioxide BUN Creatinine Glucose POC Glucose 116 H Calcium Phosphorus AST ALT Ammonia Albumin Urine WBC (Auto) 02/18/22 02/18/22 02/18/22 21:02 22:45 23:22 WBC RBC Hgb Hct MCV MCH MCHC RDW Lymph % (Auto) [place] % (Auto) Lymph # (Auto) [place] # (Auto) Seg Neutrophils % Seg Neuts % (Manual) Lymphocytes % (Manual) Seg Neutrophils # Seg Neutrophils # Man Lymphocytes # (Manual) PT INR ABG pH ABG pO2 55.6 L ABG HCO3 28.4 H ABG O2 Saturation 91.5 L ABG Base Excess 3.8 H ABG Hemoglobin 13.2 L Oxyhemoglobin 89.6 L Sodium Potassium 5.1 H Chloride Carbon Dioxide BUN Creatinine Glucose 102 H POC Glucose Calcium Phosphorus AST 48 H ALT 64 H Ammonia 14.0 L Albumin 2.7 L Urine WBC (Auto) 02/20/22 02/20/22 02/23/22 04:59 04:59 06:29 WBC 11.4 H RBC Hgb Hct MCV 103 H MCH 33 H MCHC RDW 16.5 H Lymph % (Auto) 5.5 L [place] % (Auto) 12.1 H Lymph # (Auto) 0.6 L [place] # (Auto) 1.4 H Seg Neutrophils % 81.4 H Seg Neuts % (Manual) Lymphocytes % (Manual) Seg Neutrophils # 9.2 H Seg Neutrophils # Man Lymphocytes # (Manual) PT INR ABG pH ABG pO2 ABG HCO3 ABG O2 Saturation ABG Base Excess ABG Hemoglobin Oxyhemoglobin Sodium Potassium Chloride Carbon Dioxide BUN Creatinine Glucose POC Glucose 113 H Calcium 8.2 L Phosphorus AST ALT Ammonia Albumin Urine WBC (Auto) 02/23/22 02/23/22 02/24/22 11:22 16:10 00:02 WBC RBC Hgb Hct MCV MCH MCHC RDW Lymph % (Auto) [place] % (Auto) Lymph # (Auto) [place] # (Auto) Seg Neutrophils % Seg Neuts % (Manual) Lymphocytes % (Manual) Seg Neutrophils # Seg Neutrophils # Man Lymphocytes # (Manual) PT INR ABG pH ABG pO2 ABG HCO3 ABG O2 Saturation ABG Base Excess ABG Hemoglobin Oxyhemoglobin Sodium Potassium Chloride Carbon Dioxide BUN Creatinine Glucose POC Glucose 108 H 115 H 109 H Calcium Phosphorus AST ALT Ammonia Albumin Urine WBC (Auto) 02/24/22 02/24/22 02/24/22 11:05 11:05 13:20 WBC RBC 3.55 L Hgb Hct MCV 100 H MCH 34 H MCHC RDW 15.6 H Lymph % (Auto) [place] % (Auto) Lymph # (Auto) [place] # (Auto) Seg Neutrophils % Seg Neuts % (Manual) Lymphocytes % (Manual) Seg Neutrophils # Seg Neutrophils # Man Lymphocytes # (Manual) PT INR ABG pH ABG pO2 ABG HCO3 ABG O2 Saturation ABG Base Excess ABG Hemoglobin Oxyhemoglobin Sodium 146 H Potassium 3.2 L D Chloride 108.4 H Carbon Dioxide BUN Creatinine 0.5 L Glucose POC Glucose 111 H Calcium 7.9 L Phosphorus 2.20 L AST ALT Ammonia Albumin Urine WBC (Auto) 02/24/22 02/24/22 02/24/22 16:30 17:03 20:25 WBC RBC Hgb Hct MCV MCH MCHC RDW Lymph % (Auto) [place] % (Auto) Lymph # (Auto) [place] # (Auto) Seg Neutrophils % Seg Neuts % (Manual) Lymphocytes % (Manual) Seg Neutrophils # Seg Neutrophils # Man Lymphocytes # (Manual) PT INR ABG pH 7.319 L ABG pO2 65.3 L ABG HCO3 31.3 H ABG O2 Saturation 92.2 L ABG Base Excess 3.8 H ABG Hemoglobin 12.0 L Oxyhemoglobin 90.3 L Sodium Potassium Chloride 107.9 H Carbon Dioxide BUN 8 L Creatinine 0.4 L Glucose POC Glucose 108 H Calcium 7.6 L Phosphorus 4.60 H D AST ALT Ammonia Albumin Urine WBC (Auto) 02/25/22 02/25/22 02/25/22 04:12 04:12 05:05 WBC RBC 3.07 L Hgb 10.2 L Hct 31.5 L MCV 103 H MCH 33 H MCHC RDW 15.6 H Lymph % (Auto) [place] % (Auto) Lymph # (Auto) [place] # (Auto) Seg Neutrophils % Seg Neuts % (Manual) Lymphocytes % (Manual) Seg Neutrophils # Seg Neutrophils # Man Lymphocytes # (Manual) PT INR ABG pH ABG pO2 ABG HCO3 32.5 H ABG O2 Saturation ABG Base Excess 5.6 H ABG Hemoglobin 10.8 L Oxyhemoglobin 94.8 L Sodium Potassium 3.5 L Chloride 107.7 H Carbon Dioxide BUN Creatinine 0.5 L Glucose POC Glucose Calcium 7.0 L Phosphorus AST ALT Ammonia Albumin Urine WBC (Auto) 02/25/22 02/25/22 02/26/22 12:05 18:33 00:07 WBC RBC Hgb Hct MCV MCH MCHC RDW Lymph % (Auto) [place] % (Auto) Lymph # (Auto) [place] # (Auto) Seg Neutrophils % Seg Neuts % (Manual) Lymphocytes % (Manual) Seg Neutrophils # Seg Neutrophils # Man Lymphocytes # (Manual) PT INR ABG pH ABG pO2 ABG HCO3 ABG O2 Saturation ABG Base Excess ABG Hemoglobin Oxyhemoglobin Sodium Potassium Chloride Carbon Dioxide BUN Creatinine Glucose POC Glucose 127 H 125 H 114 H Calcium Phosphorus AST ALT Ammonia Albumin Urine WBC (Auto) 02/26/22 02/26/22 02/26/22 03:30 04:42 11:34 WBC RBC Hgb Hct MCV MCH MCHC RDW Lymph % (Auto) [place] % (Auto) Lymph # (Auto) [place] # (Auto) Seg Neutrophils % Seg Neuts % (Manual) Lymphocytes % (Manual) Seg Neutrophils # Seg Neutrophils # Man Lymphocytes # (Manual) PT INR ABG pH ABG pO2 143.2 H ABG HCO3 33.2 H ABG O2 Saturation ABG Base Excess 6.5 H ABG Hemoglobin 9.4 L Oxyhemoglobin Sodium Potassium Chloride Carbon Dioxide 32 H BUN Creatinine 0.7 L Glucose POC Glucose 114 H Calcium 8.0 L Phosphorus AST ALT Ammonia Albumin Urine WBC (Auto) 02/26/22 02/26/22 02/27/22 18:17 23:37 04:19 WBC 13.7 H RBC 2.78 L Hgb 9.3 L Hct 28.5 L MCV 103 H MCH 33 H MCHC RDW 16.3 H Lymph % (Auto) [place] % (Auto) Lymph # (Auto) [place] # (Auto) Seg Neutrophils % Seg Neuts % (Manual) Lymphocytes % (Manual) Seg Neutrophils # Seg Neutrophils # Man Lymphocytes # (Manual) PT INR ABG pH ABG pO2 ABG HCO3 ABG O2 Saturation ABG Base Excess ABG Hemoglobin Oxyhemoglobin Sodium Potassium Chloride Carbon Dioxide BUN Creatinine Glucose POC Glucose 111 H 117 H Calcium Phosphorus AST ALT Ammonia Albumin Urine WBC (Auto) 02/27/22 02/27/22 02/27/22 04:19 04:35 05:27 WBC RBC Hgb Hct MCV MCH MCHC RDW Lymph % (Auto) [place] % (Auto) Lymph # (Auto) [place] # (Auto) Seg Neutrophils % Seg Neuts % (Manual) Lymphocytes % (Manual) Seg Neutrophils # Seg Neutrophils # Man Lymphocytes # (Manual) PT INR ABG pH ABG pO2 96.3 H ABG HCO3 34.9 H ABG O2 Saturation ABG Base Excess 8.1 H ABG Hemoglobin Oxyhemoglobin Sodium Potassium Chloride Carbon Dioxide 31 H BUN Creatinine 0.6 L Glucose 107 H POC Glucose 133 H Calcium 7.8 L Phosphorus AST ALT Ammonia Albumin Urine WBC (Auto) 02/27/22 02/27/22 02/28/22 11:15 23:35 03:38 WBC 13.3 H RBC 3.05 L Hgb 10.2 L Hct 30.7 L MCV 101 H MCH 33 H MCHC RDW 16.1 H Lymph % (Auto) [place] % (Auto) Lymph # (Auto) [place] # (Auto) Seg Neutrophils % Seg Neuts % (Manual) Lymphocytes % (Manual) Seg Neutrophils # Seg Neutrophils # Man Lymphocytes # (Manual) PT INR ABG pH ABG pO2 ABG HCO3 ABG O2 Saturation ABG Base Excess ABG Hemoglobin Oxyhemoglobin Sodium Potassium Chloride Carbon Dioxide BUN Creatinine Glucose POC Glucose 129 H 122 H Calcium Phosphorus AST ALT Ammonia Albumin Urine WBC (Auto) 02/28/22 02/28/22 02/28/22 04:50 05:30 09:30 WBC RBC Hgb Hct MCV MCH MCHC RDW Lymph % (Auto) [place] % (Auto) Lymph # (Auto) [place] # (Auto) Seg Neutrophils % Seg Neuts % (Manual) Lymphocytes % (Manual) Seg Neutrophils # Seg Neutrophils # Man Lymphocytes # (Manual) PT INR ABG pH 7.451 H 7.488 H ABG pO2 77.0 L ABG HCO3 37.1 H 34.6 H ABG O2 Saturation ABG Base Excess 11.5 H 10.1 H ABG Hemoglobin 10.1 L 10.0 L Oxyhemoglobin Sodium Potassium Chloride Carbon Dioxide BUN Creatinine Glucose POC Glucose 121 H Calcium Phosphorus AST ALT Ammonia Albumin Urine WBC (Auto) 02/28/22 02/28/22 03/01/22 11:36 23:07 04:27 WBC 12.5 H RBC 2.85 L Hgb 9.5 L Hct 28.6 L MCV 101 H MCH 33 H MCHC RDW 15.7 H Lymph % (Auto) [place] % (Auto) Lymph # (Auto) [place] # (Auto) Seg Neutrophils % Seg Neuts % (Manual) Lymphocytes % (Manual) Seg Neutrophils # Seg Neutrophils # Man Lymphocytes # (Manual) PT INR ABG pH ABG pO2 ABG HCO3 ABG O2 Saturation ABG Base Excess ABG Hemoglobin Oxyhemoglobin Sodium Potassium Chloride Carbon Dioxide BUN Creatinine Glucose POC Glucose 112 H 107 H Calcium Phosphorus AST ALT Ammonia Albumin Urine WBC (Auto) 03/01/22 03/01/22 03/01/22 04:27 05:05 11:29 WBC RBC Hgb Hct MCV MCH MCHC RDW Lymph % (Auto) [place] % (Auto) Lymph # (Auto) [place] # (Auto) Seg Neutrophils % Seg Neuts % (Manual) Lymphocytes % (Manual) Seg Neutrophils # Seg Neutrophils # Man Lymphocytes # (Manual) PT INR ABG pH ABG pO2 ABG HCO3 ABG O2 Saturation ABG Base Excess ABG Hemoglobin Oxyhemoglobin Sodium 147 H D Potassium Chloride Carbon Dioxide 34 H BUN Creatinine 0.6 L Glucose 128 H POC Glucose 119 H 121 H Calcium 7.9 L Phosphorus AST ALT Ammonia Albumin Urine WBC (Auto) 03/01/22 03/01/22 03/02/22 16:15 23:57 05:18 WBC RBC Hgb Hct MCV MCH MCHC RDW Lymph % (Auto) [place] % (Auto) Lymph # (Auto) [place] # (Auto) Seg Neutrophils % Seg Neuts % (Manual) Lymphocytes % (Manual) Seg Neutrophils # Seg Neutrophils # Man Lymphocytes # (Manual) PT INR ABG pH ABG pO2 110.5 H ABG HCO3 33.0 H ABG O2 Saturation ABG Base Excess 7.4 H ABG Hemoglobin 8.6 L Oxyhemoglobin Sodium Potassium Chloride Carbon Dioxide BUN Creatinine Glucose POC Glucose 134 H 140 H Calcium Phosphorus AST ALT Ammonia Albumin Urine WBC (Auto) 03/02/22 03/02/22 03/02/22 05:53 09:04 09:04 WBC 15.0 H RBC 3.00 L Hgb 9.7 L Hct 30.7 L MCV 102 H MCH MCHC RDW 16.6 H Lymph % (Auto) [place] % (Auto) Lymph # (Auto) [place] # (Auto) Seg Neutrophils % Seg Neuts % (Manual) Lymphocytes % (Manual) Seg Neutrophils # Seg Neutrophils # Man Lymphocytes # (Manual) PT INR ABG pH ABG pO2 ABG HCO3 ABG O2 Saturation ABG Base Excess ABG Hemoglobin Oxyhemoglobin Sodium Potassium Chloride Carbon Dioxide 31 H BUN Creatinine 0.6 L Glucose 157 H POC Glucose 158 H Calcium 7.9 L Phosphorus AST ALT Ammonia Albumin Urine WBC (Auto) 03/02/22 03/02/22 03/02/22 11:36 16:25 23:17 WBC RBC Hgb Hct MCV MCH MCHC RDW Lymph % (Auto) [place] % (Auto) Lymph # (Auto) [place] # (Auto) Seg Neutrophils % Seg Neuts % (Manual) Lymphocytes % (Manual) Seg Neutrophils # Seg Neutrophils # Man Lymphocytes # (Manual) PT INR ABG pH ABG pO2 ABG HCO3 ABG O2 Saturation ABG Base Excess ABG Hemoglobin Oxyhemoglobin Sodium Potassium Chloride Carbon Dioxide BUN Creatinine Glucose POC Glucose 160 H 132 H 157 H Calcium Phosphorus AST ALT Ammonia Albumin Urine WBC (Auto) 03/03/22 03/03/22 03/03/22 03:54 03:54 05:27 WBC 19.5 H RBC 2.79 L Hgb 9.0 L Hct 28.6 L MCV 102 H MCH MCHC RDW 16.2 H Lymph % (Auto) [place] % (Auto) Lymph # (Auto) [place] # (Auto) Seg Neutrophils % Seg Neuts % (Manual) 95.0 H Lymphocytes % (Manual) 3.0 L Seg Neutrophils # Seg Neutrophils # Man 18.5 H Lymphocytes # (Manual) 0.6 L PT INR ABG pH ABG pO2 ABG HCO3 ABG O2 Saturation ABG Base Excess ABG Hemoglobin Oxyhemoglobin Sodium Potassium Chloride Carbon Dioxide BUN Creatinine 0.6 L Glucose 130 H POC Glucose 149 H Calcium 8.1 L Phosphorus AST ALT Ammonia Albumin Urine WBC (Auto) 03/03/22 03/03/22 03/04/22 11:13 17:30 00:02 WBC RBC Hgb Hct MCV MCH MCHC RDW Lymph % (Auto) [place] % (Auto) Lymph # (Auto) [place] # (Auto) Seg Neutrophils % Seg Neuts % (Manual) Lymphocytes % (Manual) Seg Neutrophils # Seg Neutrophils # Man Lymphocytes # (Manual) PT INR ABG pH ABG pO2 ABG HCO3 ABG O2 Saturation ABG Base Excess ABG Hemoglobin Oxyhemoglobin Sodium Potassium Chloride Carbon Dioxide BUN Creatinine Glucose POC Glucose 139 H 138 H 157 H Calcium Phosphorus AST ALT Ammonia Albumin Urine WBC (Auto) 03/04/22 03/04/22 03/04/22 05:32 05:32 05:48 WBC 16.1 H RBC 2.81 L Hgb 9.3 L Hct 28.8 L MCV 102 H MCH 33 H MCHC RDW 16.7 H Lymph % (Auto) [place] % (Auto) Lymph # (Auto) [place] # (Auto) Seg Neutrophils % Seg Neuts % (Manual) Lymphocytes % (Manual) Seg Neutrophils # Seg Neutrophils # Man Lymphocytes # (Manual) PT INR ABG pH ABG pO2 ABG HCO3 ABG O2 Saturation ABG Base Excess ABG Hemoglobin Oxyhemoglobin Sodium Potassium Chloride Carbon Dioxide BUN Creatinine 0.7 L Glucose 135 H POC Glucose 145 H Calcium 8.3 L Phosphorus AST ALT Ammonia Albumin Urine WBC (Auto) 03/04/22 03/04/2203/05/22 11:34 16:29 00:28 WBC RBC Hgb Hct MCV MCH MCHC RDW Lymph % (Auto) [place] % (Auto) Lymph # (Auto) [place] # (Auto) Seg Neutrophils % Seg Neuts % (Manual) Lymphocytes % (Manual) Seg Neutrophils # Seg Neutrophils # Man Lymphocytes # (Manual) PT INR ABG pH ABG pO2 ABG HCO3 ABG O2 Saturation ABG Base Excess ABG Hemoglobin Oxyhemoglobin Sodium Potassium Chloride Carbon Dioxide BUN Creatinine Glucose POC Glucose 148 H 140 H 116 H Calcium Phosphorus AST ALT Ammonia Albumin Urine WBC (Auto) 03/05/22 03/05/22 03/05/22 06:29 11:30 17:38 WBC RBC Hgb Hct MCV MCH MCHC RDW Lymph % (Auto) [place] % (Auto) Lymph # (Auto) [place] # (Auto) Seg Neutrophils % Seg Neuts % (Manual) Lymphocytes % (Manual) Seg Neutrophils # Seg Neutrophils # Man Lymphocytes # (Manual) PT INR ABG pH ABG pO2 ABG HCO3 ABG O2 Saturation ABG Base Excess ABG Hemoglobin Oxyhemoglobin Sodium Potassium Chloride Carbon Dioxide BUN Creatinine Glucose POC Glucose 114 H 114 H 117 H Calcium Phosphorus AST ALT Ammonia Albumin Urine WBC (Auto) 03/06/22 03/06/22 03/06/22 04:17 04:17 06:06 WBC 13.4 H RBC 2.85 L Hgb 9.4 L Hct 29.0 L MCV 102 H MCH 33 H MCHC RDW 16.4 H Lymph % (Auto) [place] % (Auto) Lymph # (Auto) [place] # (Auto) Seg Neutrophils % Seg Neuts % (Manual) Lymphocytes % (Manual) Seg Neutrophils # Seg Neutrophils # Man Lymphocytes # (Manual) PT INR ABG pH ABG pO2 ABG HCO3 ABG O2 Saturation ABG Base Excess ABG Hemoglobin Oxyhemoglobin Sodium Potassium 3.5 L Chloride Carbon Dioxide 31 H BUN Creatinine 0.6 L Glucose 101 H POC Glucose 106 H Calcium 7.7 L Phosphorus 2.00 L AST ALT Ammonia Albumin Urine WBC (Auto) 03/06/22 03/06/22 03/07/22 18:04 23:50 05:14 WBC RBC Hgb Hct MCV MCH MCHC RDW Lymph % (Auto) [place] % (Auto) Lymph # (Auto) [place] # (Auto) Seg Neutrophils % Seg Neuts % (Manual) Lymphocytes % (Manual) Seg Neutrophils # Seg Neutrophils # Man Lymphocytes # (Manual) PT INR ABG pH ABG pO2 ABG HCO3 ABG O2 Saturation ABG Base Excess ABG Hemoglobin Oxyhemoglobin Sodium Potassium Chloride Carbon Dioxide BUN Creatinine Glucose POC Glucose 108 H 115 H 116 H Calcium Phosphorus AST ALT Ammonia Albumin Urine WBC (Auto) 03/07/22 03/07/22 03/08/22 11:42 18:13 04:34 WBC RBC 2.86 L Hgb 9.2 L Hct 29.3 L MCV 103 H MCH MCHC 31 L RDW 16.9 H Lymph % (Auto) [place] % (Auto) Lymph # (Auto) [place] # (Auto) Seg Neutrophils % Seg Neuts % (Manual) Lymphocytes % (Manual) Seg Neutrophils # Seg Neutrophils # Man Lymphocytes # (Manual) PT INR ABG pH ABG pO2 ABG HCO3 ABG O2 Saturation ABG Base Excess ABG Hemoglobin Oxyhemoglobin Sodium Potassium Chloride Carbon Dioxide BUN Creatinine Glucose POC Glucose 123 H 109 H Calcium Phosphorus AST ALT Ammonia Albumin Urine WBC (Auto) 03/08/22 03/08/22 03/08/22 04:34 11:29 16:34 WBC RBC Hgb Hct MCV MCH MCHC RDW Lymph % (Auto) [place] % (Auto) Lymph # (Auto) [place] # (Auto) Seg Neutrophils % Seg Neuts % (Manual) Lymphocytes % (Manual) Seg Neutrophils # Seg Neutrophils # Man Lymphocytes # (Manual) PT INR ABG pH ABG pO2 ABG HCO3 ABG O2 Saturation ABG Base Excess ABG Hemoglobin Oxyhemoglobin Sodium Potassium Chloride Carbon Dioxide 33 H BUN Creatinine 0.5 L Glucose 109 H POC Glucose 117 H 109 H Calcium 7.6 L Phosphorus AST ALT Ammonia Albumin Urine WBC (Auto) 03/08/22 03/09/22 03/10/22 23:56 11:15 03:57 WBC RBC 2.99 L Hgb 9.9 L Hct 30.3 L MCV 102 H MCH 33 H MCHC RDW 16.8 H Lymph % (Auto) 13.3 L [place] % (Auto) 12.5 H Lymph # (Auto) [place] # (Auto) 1.3 H Seg Neutrophils % 72.4 H Seg Neuts % (Manual) Lymphocytes % (Manual) Seg Neutrophils # Seg Neutrophils # Man Lymphocytes # (Manual) PT INR ABG pH ABG pO2 ABG HCO3 ABG O2 Saturation ABG Base Excess ABG Hemoglobin Oxyhemoglobin Sodium Potassium Chloride Carbon Dioxide BUN Creatinine Glucose POC Glucose 106 H 110 H Calcium Phosphorus AST ALT Ammonia Albumin Urine WBC (Auto) 03/10/22 03/10/22 03/10/22 03:57 04:50 16:04 WBC RBC Hgb Hct MCV MCH MCHC RDW Lymph % (Auto) [place] % (Auto) Lymph # (Auto) [place] # (Auto) Seg Neutrophils % Seg Neuts % (Manual) Lymphocytes % (Manual) Seg Neutrophils # Seg Neutrophils # Man Lymphocytes # (Manual) PT INR ABG pH 7.465 H ABG pO2 ABG HCO3 31.9 H ABG O2 Saturation ABG Base Excess 7.3 H ABG Hemoglobin 11.0 L Oxyhemoglobin Sodium Potassium 3.4 L Chloride Carbon Dioxide BUN Creatinine 0.6 L Glucose POC Glucose 115 H Calcium 8.1 L Phosphorus AST ALT Ammonia Albumin 1.9 L Urine WBC (Auto) 03/11/22 03/11/22 03/11/22 04:02 04:02 04:02 WBC 12.0 H RBC 2.81 L Hgb 9.2 L Hct 29.1 L MCV 103 H MCH 33 H MCHC RDW 17.5 H Lymph % (Auto) [place] % (Auto) Lymph # (Auto) [place] # (Auto) Seg Neutrophils % Seg Neuts % (Manual) Lymphocytes % (Manual) Seg Neutrophils # Seg Neutrophils # Man Lymphocytes # (Manual) PT 16.2 H INR 1.16 H ABG pH ABG pO2 ABG HCO3 ABG O2 Saturation ABG Base Excess ABG Hemoglobin Oxyhemoglobin Sodium Potassium Chloride Carbon Dioxide BUN Creatinine 0.5 L Glucose 104 H POC Glucose Calcium 7.9 L Phosphorus AST ALT Ammonia Albumin Urine WBC (Auto) 03/11/22 03/11/22 03/11/22 05:10 11:07 16:32 WBC RBC Hgb Hct MCV MCH MCHC RDW Lymph % (Auto) [place] % (Auto) Lymph # (Auto) [place] # (Auto) Seg Neutrophils % Seg Neuts % (Manual) Lymphocytes % (Manual) Seg Neutrophils # Seg Neutrophils # Man Lymphocytes # (Manual) PT INR ABG pH 7.476 H ABG pO2 ABG HCO3 29.7 H ABG O2 Saturation ABG Base Excess 5.7 H ABG Hemoglobin 9.1 L Oxyhemoglobin Sodium Potassium Chloride Carbon Dioxide BUN Creatinine Glucose POC Glucose 108 H 121 H Calcium Phosphorus AST ALT Ammonia Albumin Urine WBC (Auto) 03/12/22 03/13/22 03/13/22 05:51 06:08 12:02 WBC RBC 2.73 L Hgb 9.0 L Hct 27.5 L MCV 101 H MCH 33 H MCHC RDW 17.2 H Lymph % (Auto) [place] % (Auto) Lymph # (Auto) [place] # (Auto) Seg Neutrophils % Seg Neuts % (Manual) Lymphocytes % (Manual) Seg Neutrophils # Seg Neutrophils # Man Lymphocytes # (Manual) PT INR ABG pH ABG pO2 ABG HCO3 ABG O2 Saturation ABG Base Excess ABG Hemoglobin Oxyhemoglobin Sodium Potassium Chloride Carbon Dioxide BUN Creatinine Glucose POC Glucose 116 H 111 H Calcium Phosphorus AST ALT Ammonia Albumin Urine WBC (Auto) 03/13/22 03/13/22 03/14/22 12:48 18:17 03:58 WBC RBC 2.97 L Hgb 9.7 L Hct 30.0 L MCV 101 H MCH 33 H MCHC RDW 16.7 H Lymph % (Auto) [place] % (Auto) Lymph # (Auto) [place] # (Auto) Seg Neutrophils % Seg Neuts % (Manual) Lymphocytes % (Manual) Seg Neutrophils # Seg Neutrophils # Man Lymphocytes # (Manual) PT INR ABG pH ABG pO2 ABG HCO3 ABG O2 Saturation ABG Base Excess ABG Hemoglobin Oxyhemoglobin Sodium Potassium Chloride Carbon Dioxide BUN Creatinine Glucose POC Glucose 125 H 114 H Calcium Phosphorus AST ALT Ammonia Albumin Urine WBC (Auto) 03/14/22 03/14/22 03/14/22 03:58 13:01 16:41 WBC RBC Hgb Hct MCV MCH MCHC RDW Lymph % (Auto) [place] % (Auto) Lymph # (Auto) [place] # (Auto) Seg Neutrophils % Seg Neuts % (Manual) Lymphocytes % (Manual) Seg Neutrophils # Seg Neutrophils # Man Lymphocytes # (Manual) PT INR ABG pH ABG pO2 ABG HCO3 ABG O2 Saturation ABG Base Excess ABG Hemoglobin Oxyhemoglobin Sodium Potassium Chloride Carbon Dioxide BUN Creatinine 0.6 L Glucose POC Glucose 118 H 109 H Calcium 8.2 L Phosphorus AST ALT Ammonia Albumin Urine WBC (Auto) 03/16/22 03/16/22 03/17/22 05:28 05:28 23:19 WBC RBC 2.81 L Hgb 9.1 L Hct 27.8 L MCV 99 H MCH MCHC RDW 17.0 H Lymph % (Auto) [place] % (Auto) Lymph # (Auto) [place] # (Auto) Seg Neutrophils % Seg Neuts % (Manual) Lymphocytes % (Manual) Seg Neutrophils # Seg Neutrophils # Man Lymphocytes # (Manual) PT INR ABG pH ABG pO2 ABG HCO3 ABG O2 Saturation ABG Base Excess ABG Hemoglobin Oxyhemoglobin Sodium Potassium Chloride Carbon Dioxide BUN Creatinine 0.5 L Glucose POC Glucose 113 H Calcium 8.2 L Phosphorus AST ALT Ammonia Albumin Urine WBC (Auto) 03/20/22 03/20/22 03/20/22 04:09 04:09 17:22 WBC RBC 2.90 L Hgb 9.6 L Hct 28.9 L MCV 100 H MCH 33 H MCHC RDW 17.4 H Lymph % (Auto) [place] % (Auto) Lymph # (Auto) [place] # (Auto) Seg Neutrophils % Seg Neuts % (Manual) Lymphocytes % (Manual) Seg Neutrophils # Seg Neutrophils # Man Lymphocytes # (Manual) PT INR ABG pH ABG pO2 ABG HCO3 ABG O2 Saturation ABG Base Excess ABG Hemoglobin Oxyhemoglobin Sodium Potassium Chloride Carbon Dioxide BUN Creatinine 0.6 L Glucose POC Glucose 110 H Calcium 8.2 L Phosphorus AST ALT Ammonia Albumin Urine WBC (Auto) 03/21/22 03/21/22 03/22/22 18:24 23:09 12:18 WBC RBC Hgb Hct MCV MCH MCHC RDW Lymph % (Auto) [place] % (Auto) Lymph # (Auto) [place] # (Auto) Seg Neutrophils % Seg Neuts % (Manual) Lymphocytes % (Manual) Seg Neutrophils # Seg Neutrophils # Man Lymphocytes # (Manual) PT INR ABG pH ABG pO2 ABG HCO3 ABG O2 Saturation ABG Base Excess ABG Hemoglobin Oxyhemoglobin Sodium Potassium Chloride Carbon Dioxide BUN Creatinine Glucose POC Glucose 110 H 107 H 106 H Calcium Phosphorus AST ALT Ammonia Albumin Urine WBC (Auto) 03/22/22 03/23/22 03/23/22 14:25 00:21 11:31 WBC RBC Hgb Hct MCV MCH MCHC RDW Lymph % (Auto) [place] % (Auto) Lymph # (Auto) [place] # (Auto) Seg Neutrophils % Seg Neuts % (Manual) Lymphocytes % (Manual) Seg Neutrophils # Seg Neutrophils # Man Lymphocytes # (Manual) PT INR ABG pH ABG pO2 150.5 H ABG HCO3 32.4 H ABG O2 Saturation ABG Base Excess 6.2 H ABG Hemoglobin 11.4 L Oxyhemoglobin Sodium Potassium Chloride Carbon Dioxide BUN Creatinine Glucose POC Glucose 107 H 110 H Calcium Phosphorus AST ALT Ammonia Albumin Urine WBC (Auto) 03/24/22 03/24/22 03/24/22 03:47 03:47 05:56 WBC RBC 3.18 L Hgb 10.1 L Hct 31.1 L MCV 98 H MCH MCHC RDW 17.4 H Lymph % (Auto) [place] % (Auto) Lymph # (Auto) [place] # (Auto) Seg Neutrophils % Seg Neuts % (Manual) Lymphocytes % (Manual) Seg Neutrophils # Seg Neutrophils # Man Lymphocytes # (Manual) PT INR ABG pH ABG pO2 ABG HCO3 ABG O2 Saturation ABG Base Excess ABG Hemoglobin Oxyhemoglobin Sodium Potassium Chloride Carbon Dioxide BUN Creatinine 0.5 L Glucose POC Glucose 107 H Calcium Phosphorus AST ALT Ammonia Albumin Urine WBC (Auto) 03/24/22 03/25/22 03/25/22 11:15 00:14 11:24 WBC RBC Hgb Hct MCV MCH MCHC RDW Lymph % (Auto) [place] % (Auto) Lymph # (Auto) [place] # (Auto) Seg Neutrophils % Seg Neuts % (Manual) Lymphocytes % (Manual) Seg Neutrophils # Seg Neutrophils # Man Lymphocytes # (Manual) PT INR ABG pH ABG pO2 ABG HCO3 ABG O2 Saturation ABG Base Excess ABG Hemoglobin Oxyhemoglobin Sodium Potassium Chloride Carbon Dioxide BUN Creatinine Glucose POC Glucose 126 H 109 H 110 H Calcium Phosphorus AST ALT Ammonia Albumin Urine WBC (Auto) 03/25/22 03/26/22 03/26/22 16:27 05:18 11:15 WBC RBC Hgb Hct MCV MCH MCHC RDW Lymph % (Auto) [place] % (Auto) Lymph # (Auto) [place] # (Auto) Seg Neutrophils % Seg Neuts % (Manual) Lymphocytes % (Manual) Seg Neutrophils # Seg Neutrophils # Man Lymphocytes # (Manual) PT INR ABG pH ABG pO2 ABG HCO3 ABG O2 Saturation ABG Base Excess ABG Hemoglobin Oxyhemoglobin Sodium Potassium Chloride Carbon Dioxide BUN Creatinine Glucose POC Glucose 123 H 114 H 135 H Calcium Phosphorus AST ALT Ammonia Albumin Urine WBC (Auto) 03/26/22 03/27/22 03/27/22 18:08 03:52 03:52 WBC 17.1 H RBC 2.94 L Hgb 9.2 L Hct 29.3 L MCV 100 H MCH MCHC 31 L RDW 17.5 H Lymph % (Auto) [place] % (Auto) Lymph # (Auto) [place] # (Auto) Seg Neutrophils % Seg Neuts % (Manual) Lymphocytes % (Manual) Seg Neutrophils # Seg Neutrophils # Man Lymphocytes # (Manual) PT INR ABG pH ABG pO2 ABG HCO3 ABG O2 Saturation ABG Base Excess ABG Hemoglobin Oxyhemoglobin Sodium 136 L Potassium Chloride Carbon Dioxide 32 H BUN 23 H Creatinine 0.6 L Glucose POC Glucose 130 H Calcium 8.2 L Phosphorus AST ALT Ammonia Albumin Urine WBC (Auto) 03/27/22 03/27/22 03/27/22 08:36 12:55 18:27 WBC RBC Hgb Hct MCV MCH MCHC RDW Lymph % (Auto) [place] % (Auto) Lymph # (Auto) [place] # (Auto) Seg Neutrophils % Seg Neuts % (Manual) Lymphocytes % (Manual) Seg Neutrophils # Seg Neutrophils # Man Lymphocytes # (Manual) PT INR ABG pH ABG pO2 ABG HCO3 ABG O2 Saturation ABG Base Excess ABG Hemoglobin Oxyhemoglobin Sodium Potassium Chloride Carbon Dioxide BUN Creatinine Glucose POC Glucose 137 H 114 H Calcium Phosphorus AST ALT Ammonia Albumin Urine WBC (Auto) > 182.0 H 03/28/22 03/28/22 03/28/22 01:00 04:06 04:52 WBC 14.2 H RBC 2.76 L Hgb 8.6 L Hct 26.8 L MCV 97 H MCH MCHC RDW 17.4 H Lymph % (Auto) 7.5 L [place] % (Auto) 10.5 H Lymph # (Auto) 1.1 L [place] # (Auto) 1.5 H Seg Neutrophils % 80.7 H Seg Neuts % (Manual) Lymphocytes % (Manual) Seg Neutrophils # 11.4 H Seg Neutrophils # Man Lymphocytes # (Manual) PT INR ABG pH ABG pO2 ABG HCO3 ABG O2 Saturation ABG Base Excess ABG Hemoglobin Oxyhemoglobin Sodium Potassium Chloride Carbon Dioxide BUN Creatinine Glucose POC Glucose 111 H 111 H Calcium Phosphorus AST ALT Ammonia Albumin Urine WBC (Auto)
--- NOTE | 2022-03-28 15:13 | Progress Note ---
<CARSON ROSS ZiaRadha - Last Filed: 03/28/22 15:10> Assessment and Plan Assessment and plan: This is a 51-year-old male with HTN, seizure disorder, Down syndrome, HLD, partial blindness admitted with aspiration pneumonia, probable bronchogenic carcinoma, acute hypoxic respiratory failure and acute encephalopathy Neuro: h/o seizure disorder, Down syndrome, partial blindness -Reorientation as needed -Maintain sleep-wake cycle -aspiration/seizure precautions -As needed analgesia -CT head showed no acute abnormality -Continue Keppra Cardiac: h/o HTN, HLD -Cardiology consulted, appreciate recommendations -Blood pressure monitoring per protocol -PO Midodrine Respiratory: Acute hypoxic respiratory failure, ruled out bronchogenic carcinoma -CCM consulted, appreciate recommendations -Intubated on 02/24 with a 8.0 at 23 at the lips but extubated 02/28 -reintubated 02/28 with 8.0 OETT -Vent settings: AC rate 14, TV 360, PEEP 6, FO2 30% -See RT notes for titration -VAP bundle -SPO2 monitoring per protocol -02/18 CTA chest showed no evidence of pulmonary embolism, suspected bronchogenic carcinoma with associated obstruction of the right lower lobe proximal bronchus segment, 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 adenopathy and suspected to left lower lobe metastatic nodule -02/26 Bronch->mucous, no lesion noted -02/27 CT chest read: right mainstem bronchus patent with small amount of interval bronchial fluid which may be mucus (this may account for the appearance of the prior CTA chest fluid-filled airway rather than entering bronchial lesion), previously seen complete left lower lobe since related to bronchial occlusion has significantly improved, there is persistent compressive atelectasis in the right lower lung secondary to the pleural effusion, bilateral pleural effusions, right lung pneumonia -CT neck showed no acute changes -s/p steroids GI: Moderate protein calorie malnutrition -24 hours -176 mL -PPI -NTR consulted for tube feedings -BR: Senokot S : NAD -Monitor intake and output -Renally dose medications -Avoid nephrotoxic medications -Trend BMP ID: UTI, Aspiration PNA (resolved), sacral wound (POA) -UA with pyuria, mod LE with leukocytosis -WOCN consulted -Dressing changes per nursing -S/p Rocephin for 5 days (02/19-02/24) -Current abx therapy: rocephin for 3 days -Monitor WBC and temperature curve Endo: NAD -Avoid hypoglycemia -Accu-Cheks every 6 -Avoid hypoglycemia Heme: NAD -Trend CBC -Transfuse hemoglobin less than 7 -SCDs to BLE while in bed Dispo: -Awaiting guardianship for trach/peg The high probability of a clinically significant, sudden or life threatening deterioration of the [resp] system(s) required my full and direct attention, intervention and personal management. The aggregate critical care time was [60] minutes. This time is in addition to time spent performing reported procedures but includes the following: [x] Data Review and interpretation [x] Patient assessment and monitoring of vital signs [x] Documentation [x] Medication orders and management Disposition Plan: icu Total Time Spent with Patient (Minutes): 60 History Interval history: This is a 51-year-old male with HTN, seizure disorder, Down syndrome, HLD, and partial blindness was a resident of the [facility] who presented to emergency department on 02/19 for evaluation of change in mental status. Of note patient was recently discharged a few weeks ago for a seizure disorder and UTI. Upon arrival to the emergency department patient was noted to be hypoxic with SPO2 in the 80s on a nonrebreather with difficulty breathing. Work-up in the emergency department revealed CXR which showed elevation of the right hemidiaphragm, right lower lung atelectasis and effusion with mild increased pulmonary vascularity but no pneumothorax and CT of the head did not show any acute abnormality. 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 Patient was admitted to the hospitalist service to the floor. Hospital course to date: 02/19/2022. Consult pulmonary for further evaluation and possible bronchoscopy. I suspect patient has component of aspiration pneumonia as well. We will obtain a speech therapy evaluation for swallowing and start empiric antibiotics. Continue O2 supplementation to maintain sats greater than 92%. 02/20/2022. Pulmonary feels that the abnormality seen on CT scan is highly unlikely for a mass given negative chest x-ray 1 month ago and no risk factors. Etiology is likely secondary to aspiration from possibly a foreign body most likely food with atelectasis of the right lower lobe. Bronchoscopy is needed in the case to evaluate to see if lung mass is there vs foreign body, but at this time not able to do because no identifiable person that is able to give consent. Continue aspiration precautions and continue speech therapy evaluation for swallowing. Keep n.p.o. for now 02/21/2022. Patient remains NPO. Consider DHT placement. Follow-up with speech therapy evaluation. Pulmonology to consider bronchoscopy if able to obtain consent. Continue IV antibiotics for aspiration pneumonia 02/22/2022. Patient remains NPO. Consider DHT placement. Follow-up with speech therapy evaluation. Pulmonology to consider bronchoscopy if able to obtain consent. Continue IV antibiotics for aspiration pneumonia 02/23/2022. DHT placed yesterday. TF initiated for nutritional support. Patient currently with strict NPO. Aspiration precautions. Pulmonology to consider bronchoscopy if able to obtain consent. Continue IV a ntibiotics for aspiration pneumonia 02/24: Patient was transferred to the ICU for further monitoring. This morning patient remained on high flow nasal cannula on 40 L/100% and despite repeated nasotracheal suctioning patient SPO2 remained in the 80s. Patient was placed on nonrebreather and SPO2 increased to upper 80s. Patient was subsequently intubated by anesthesia. Started on sedation. 02/25: Patient remains sedated on fentanyl, potassium and magnesium repleted. IV fluids and amlodipine discontinued. Possible bronchoscopy tomorrow. 02/26: Patient had a bronchoscopy today which showed mucus and no endobronchial lesions or masses. FiO2 was increased to 100 during and postprocedure weaning as tolerated. Repeat CXR is much improved after bronc. Given 1 L LR bolus due to hypotension. No acute events reported overnight. 02/27: Decreased PEEP, will repeat CT of chest. no acute changes overnight. 02/28: Patient was extubated today however had to be be intubated shortly after. Patient ETT looked mispositioned on x-ray and Dr. Alonzo did do a bedside bronc. Patient was briefly hypotensive and on Levophed postintubation however Levophed was quickly titrated off and patient did not require central line. No acute events reported overnight. Will obtain CT neck d/t difficulty intubating. Ethic committee consulted. 03/01: Overnight patient was hypotensive and started on IVF. Patient started on steroids as no air leak noted and hypotension and given 2 L LR 03/02: Overnight patient received bolus per RN report, no orders seen. Continue supportive care. 03/04: MAIDA overnight. Remains stable on the vent. Awaiting on desicion from [facility] for possible trach and PEG. Continue current supportive measures 03/05: MAIDA overnight. Awaiting on desicion from [facility] for possible trach and PEG. Midodrine held yesterday, HR improved. Continue current supportive measures. Daily PSV trial as tolerated per CCM 03/06: Remains stable on the vent. Continue current supportive measures, daily PSV trial per CCM. Awaiting on desicion for possible trach and PEG. 03/07: MAIDA overnight, remains stable. Continue daily PSV trial as tolerated. Awaiting on desicion for possible trach and PEG. 03/08: Patient failed PSV trial this am due to tachycardia and increase RR. Continue supportive measures and daily PSV trial as tolerated. Possible discussion with ethics and [facility] on Thursday in regards to medical necessity, may need to consider two physician consent if no one is able to claim responsibility for this patient. 03/09: MAIDA overnight. Continue current supportive measures and daily PSV trail as tolerated. Awaiting on decision for possible trach and PEG, discussion with Et hics possibly tomorrow per [facility]. 03/10: no acute events overnight, PSV today. replete potassium. 03/11: No acute events reported overnight, patient failed PSV yesterday and will repeat today. Hospital to start guardianship process. 03/12: No acute events overnight. PSV today 03/13: Patient given 500ml normal saline and started on midodrine for hypotension. No acute events reported overnight. Failed pressure support again this morning. 03/14: No acute events reported overnight, patient blood pressure seems better therefore midodrine discontinued. RT placed on CPAP need lasted for couple hour s. Will remove summers 03/15: Midodrine was restarted yesterday evening for hypotension, Summers catheter not removed due to sacral ulcer and history of retention. Unable to crush Flomax and patient will not tolerate doxazosin given hypotension. Given LR bolus this morning. If blood pressure continues to be borderline after bolus, we will adjust management as needed. CPAP as tolerated 03/16: No acute events reported overnight, patient placed on CPAP trial this morning which he failed. 03/17: RT attempted PSV which he failed again today. No acute events reported overnight. 03/18: Awaiting ethic committee's decision on Trach/PEG. Patient tolerated PSV trial for over 3 hrs today, continue daily PSV trial as tolerated. 03/19: MAIDA overnight. Continue current supportive measures. Daily PSV trial as tolerated. Awaiting on desicion for possible trach and PEG. 03/20: MAIDA overnight. Daily PSV trial as tolerated. Awaiting decision on guardianship for trach and PEG. 03/21: Remains stable, condition unchanged. Continue supportive measures and daily PSV trial as tolerated. 03/22: MAIDA overnight. Continue current supportive measures. Daily PSV trial as tolerated 03/23: MAIDA overnight, continue supportive measures and daily PSV trial as tolerated. 03/24: Condition unchanged. Still waiting on Ethics' decision for possible trach/Peg. Continue supportive measures and daily PSV trial as tolerated. 03/25: PSV attempt today, does open eyes to stimuli, no acute events overnight. 03/26: Yesterday evening Summers catheter was removed as he was due to be changed, condom cath placed. Overnight patient had good urine output and per RN repeated bladder scans showed less than 200 mL of urine. We will continue to monitor urine output. RT to attempt PSV 03/27: Patient has leukocytosis today and UA has pyuria with moderate LE therefore he will be started on antibiotics. 03/28: Leukocytosis improving. No acute events reported overnight. Hospitalist Physical - Constitutional Vitals: Temp Pulse Resp BP Pulse Ox 99.6 F 76 14 97/52 97 03/28/22 12:08 03/28/22 15:00 03/28/22 15:00 03/28/22 15:00 03/28/22 15:00 General appearance: Present: no acute distress, well-nourished - EENT Eyes: Present: PERRL - Neck Neck: Present: normal ROM - Respiratory Respiratory effort: normal Respiratory: bilateral: rhonchi - Cardiovascular Rhythm: regular Heart Sounds: Present: S1 & S2. Absent: systolic murmur, diastolic murmur - Extremities Extremities: no ischemia, pulses intact, pulses symmetrical, No edema, normal temperature, normal color Peripheral Pulses: within normal limits - Abdominal General gastrointestinal: soft, non-tender, normal bowel sounds - Integumentary Integumentary: Present: warm, dry - Neurologic Neurologic: other (Intermittently follows commands) - Allied Health Allied health notes reviewed: nursing, RT, social work HEART Score - HEART Score Troponin: Troponin T < 0.010 ng/mL (0.00-0.029) 02/18/22 21:02 Results - Labs CBC & Chem 7: 03/28/22 04:06 03/27/22 03:52 Labs: Laboratory Last Values WBC 14.2 K/mm3 (4.5-11.0) H 03/28/22 04:06 RBC 2.76 M/mm3 (3.65-5.03) L 03/28/22 04:06 Hgb 8.6 gm/dl (11.8-15.2) L 03/28/22 04:06 Hct 26.8 % (35.5-45.6) L 03/28/22 04:06 MCV 97 fl (84-94) H 03/28/22 04:06 MCH 31 pg (28-32) 03/28/22 04:06 MCHC 32 % (32-34) 03/28/22 04:06 RDW 17.4 % (13.2-15.2) H 03/28/22 04:06 Plt Count 297 K/mm3 (140-440) 03/28/22 04:06 Lymph % (Auto) 7.5 % (13.4-35.0) L 03/28/22 04:06 Johnson % (Auto) 10.5 % (0.0-7.3) H 03/28/22 04:06 Eos % (Auto) 0.9 % (0.0-4.3) 03/28/22 04:06 Baso % (Auto) 0.4 % (0.0-1.8) 03/28/22 04:06 Lymph # (Auto) 1.1 K/mm3 (1.2-5.4) L 03/28/22 04:06 Johnson # (Auto) 1.5 K/mm3 (0.0-0.8) H 03/28/22 04:06 Eos # (Auto) 0.1 K/mm3 (0.0-0.4) 03/28/22 04:06 Baso # (Auto) 0.1 K/mm3 (0.0-0.1) 03/28/22 04:06 Add Manual Diff Complete 03/03/22 03:54 Total Counted 100 03/03/22 03:54 Seg Neutrophils % 80.7 % (40.0-70.0) H 03/28/22 04:06 Seg Neuts % (Manual) 95.0 % (40.0-70.0) H 03/03/22 03:54 Band Neutrophils % 0 % 03/03/22 03:54 Lymphocytes % (Manual) 3.0 % (13.4-35.0) L 03/03/22 03:54 Reactive Lymphs % (Man) 0 % 03/03/22 03:54 Monocytes % (Manual) 2.0 % (0.0-7.3) 03/03/22 03:54 Eosinophils % (Manual) 0 % (0.0-4.3) 03/03/22 03:54 Basophils % (Manual) 0 % (0.0-1.8) 03/03/22 03:54 Metamyelocytes % 0 % 03/03/22 03:54 Myelocytes % 0 % 03/03/22 03:54 Promyelocytes % 0 % 03/03/22 03:54 Blast Cells % 0 % 03/03/22 03:54 Nucleated RBC % Not Reportable 03/03/22 03:54 Seg Neutrophils # 11.4 K/mm3 (1.8-7.7) H 03/28/22 04:06 Seg Neutrophils # Man 18.5 K/mm3 (1.8-7.7) H 03/03/22 03:54 Band Neutrophils # 0.0 K/mm3 03/03/22 03:54 Lymphocytes # (Manual) 0.6 K/mm3 (1.2-5.4) L 03/03/22 03:54 Abs React Lymphs (Man) 0.0 K/mm3 03/03/22 03:54 Monocytes # (Manual) 0.4 K/mm3 (0.0-0.8) 03/03/22 03:54 Eosinophils # (Manual) 0.0 K/mm3 (0.0-0.4) 03/03/22 03:54 Basophils # (Manual) 0.0 K/mm3 (0.0-0.1) 03/03/22 03:54 Metamyelocytes # 0.0 K/mm3 03/03/22 03:54 Myelocytes # 0.0 K/mm3 03/03/22 03:54 Promyelocytes # 0.0 K/mm3 03/03/22 03:54 Blast Cells # 0.0 K/mm3 03/03/22 03:54 WBC Morphology Not Reportable 03/03/22 03:54 Hypersegmented Neuts Not Reportable 03/03/22 03:54 Hyposegmented Neuts Not Reportable 03/03/22 03:54 Hypogranular Neuts Not Reportable 03/03/22 03:54 Smudge Cells Not Reportable 03/03/22 03:54 Toxic Granulation Not Reportable 03/03/22 03:54 Toxic Vacuolation Not Reportable 03/03/22 03:54 Dohle Bodies Not Reportable 03/03/22 03:54 Pelger-Huet Anomaly Not Reportable 03/03/22 03:54 Lakshmi Rods Not Reportable 03/03/22 03:54 Platelet Estimate Consistent w auto 03/03/22 03:54 Clumped Platelets Not Reportable 03/03/22 03:54 Plt Clumps, EDTA Not Reportable 03/03/22 03:54 Large Platelets Not Reportable 03/03/22 03:54 Giant Platelets Not Reportable 03/03/22 03:54 Platelet Satelliting Not Reportable 03/03/22 03:54 Plt Morphology Comment Not Reportable 03/03/22 03:54 RBC Morphology Not Reportable 03/03/22 03:54 Dimorphic RBCs Not Reportable 03/03/22 03:54 Polychromasia Not Reportable 03/03/22 03:54 Hypochromasia Not Reportable 03/03/22 03:54 Poikilocytosis Not Reportable 03/03/22 03:54 Anisocytosis 1+ 03/03/22 03:54 Microcytosis Not Reportable 03/03/22 03:54 Macrocytosis Not Reportable 03/03/22 03:54 Spherocytes Not Reportable 03/03/22 03:54 Pappenheimer Bodies Not Reportable 03/03/22 03:54 Sickle Cells Not Reportable 03/03/22 03:54 Target Cells Not Reportable 03/03/22 03:54 Tear Drop Cells Not Reportable 03/03/22 03:54 Ovalocytes Not Reportable 03/03/22 03:54 Helmet Cells Not Reportable 03/03/22 03:54 [place] Bodies Not Reportable 03/03/22 03:54 [place] Rings Not Reportable 03/03/22 03:54 [place] Cells Not Reportable 03/03/22 03:54 Bite Cells Not Reportable 03/03/22 03:54 Crenated Cell Not Reportable 03/03/22 03:54 Elliptocytes Not Reportable 03/03/22 03:54 Acanthocytes (Spur) Not Reportable 03/03/22 03:54 Rouleaux Not Reportable 03/03/22 03:54 Hemoglobin C Crystals Not Reportable 03/03/22 03:54 Schistocytes Not Reportable 03/03/22 03:54 Malaria parasites Not Reportable 03/03/22 03:54 Cash Bodies Not Reportable 03/03/22 03:54 Hem Pathologist Commnt No 03/03/22 03:54 PT 16.2 Sec. (12.2-14.9) H 03/11/22 04:02 INR 1.16 (0.87-1.13) H 03/11/22 04:02 ABG pH 7.392 pH Units (7.350-7.450) 03/22/22 14:25 ABG pCO2 54.4 mm Hg 03/22/22 14:25 ABG pO2 150.5 mm Hg (80.0-90.0) H 03/22/22 14:25 ABG HCO3 32.4 mmol/L (20.0-26.0) H 03/22/22 14:25 ABG O2 Saturation 98.8 % (95.0-99.0) 03/22/22 14:25 ABG O2 Content 15.8 (0.0-44) 03/22/22 14:25 ABG Base Excess 6.2 mmol/L (-2.0-3.0) H 03/22/22 14:25 ABG Hemoglobin 11.4 gm/dl (14.0-18.0) L 03/22/22 14:25 ABG Carboxyhemoglobin 1.6 % (0.0-5.0) 03/22/22 14:25 ABG Methemoglobin 0.6 % (0.0-1.5) 03/22/22 14:25 Oxyhemoglobin 96.6 % (95.0-99.0) 03/22/22 14:25 FiO2 30 % 03/22/22 14:25 Sodium 136 mmol/L (137-145) L 03/27/22 03:52 Potassium 4.2 mmol/L (3.6-5.0) 03/27/22 03:52 Chloride 98.6 mmol/L (98-107) 03/27/22 03:52 Carbon Dioxide 32 mmol/L (22-30) H 03/27/22 03:52 Anion Gap 10 mmol/L 03/27/22 03:52 BUN 23 mg/dL (9-20) H 03/27/22 03:52 Creatinine 0.6 mg/dL (0.8-1.3) L 03/27/22 03:52 Estimated GFR > 60 ml/min 03/27/22 03:52 BUN/Creatinine Ratio 38 % 03/27/22 03:52 Glucose 98 mg/dL (75-100) 03/27/22 03:52 POC Glucose 114 mg/dL (70-105) H 03/28/22 12:09 Lactic Acid 1.20 mmol/L (0.7-2.0) 02/18/22 21:02 Calcium 8.2 mg/dL (8.4-10.2) L 03/27/22 03:52 Phosphorus 3.50 mg/dL (2.5-4.5) 03/20/22 04:09 Magnesium 2.00 mg/dL (1.7-2.3) 03/20/22 04:09 Total Bilirubin 0.30 mg/dL (0.1-1.2) 03/10/22 03:57 AST 17 units/L (5-40) 03/10/22 03:57 ALT 18 units/L (7-56) 03/10/22 03:57 Alkaline Phosphatase 89 units/L (35-129) 03/10/22 03:57 Ammonia 14.0 umol/L (25-60) L 02/18/22 23:22 Troponin T < 0.010 ng/mL (0.00-0.029) 02/18/22 21:02 Total Protein 6.6 g/dL (6.3-8.2) 03/10/22 03:57 Albumin 1.9 g/dL (3.9-5) L 03/10/22 03:57 Albumin/Globulin Ratio 0.4 % 03/10/22 03:57 Urine Color Yellow (Yellow) 03/27/22 08:36 Urine Turbidity Cloudy (Clear) 03/27/22 08:36 Urine pH 7.0 (5.0-7.0) 02/18/22 Unknown Ur Specific Follett 1.015 (1.003-1.030) 02/18/22 Unknown Specific Follett (Man) 1.020 (1.003-1.030) 03/27/22 08:36 Urine Protein <15 mg/dl mg/dL (Negative) 02/18/22 Unknown Ur Protein (Man) 1+ mg/dL (Negative) 03/27/22 08:36 Urine Glucose (UA) Negative mg/dL (Negative) 02/18/22 Unknown Urine Ketones Negative mg/dL (Negative) 02/18/22 Unknown Ur Ketones (Man) Negative (Negative) 03/27/22 08:36 Urine Blood Trace (Negative) 02/18/22 Unknown Urine Nitrite Negative (Negative) 02/18/22 Unknown Ur Nitrite (Man) Negative (Negative) 03/27/22 08:36 Ur Reducing Substances Not Reportable 03/27/22 08:36 Urine Bilirubin Negative (Negative) 02/18/22 Unknown Urine Bilirubin (Man) Negative (Negative) 03/27/22 08:36 Urine Ictotest Not Reportable 03/27/22 08:36 Urine Urobilinogen < 2.0 mg/dL (<2.0) 02/18/22 Unknown Ur Leukocyte Esterase Negative (Negative) 02/18/22 Unknown Leukocyte Esterase (Man) Moderate (Negative) 03/27/22 08:36 Urine WBC (Auto) > 182.0 /HPF (0.0-6.0) H 03/27/22 08:36 Urine RBC (Auto) 9.0 /HPF (0.0-6.0) 03/27/22 08:36 U Epithel Cells (Auto) < 1.0 /HPF (0-13.0) 03/27/22 08:36 Urine RBC (Manual) 1+ (Negative) 03/27/22 08:36 Urine Mucus Few /HPF 03/27/22 08:36 Urine Yeast (Budding) 2+ /HPF 03/27/22 08:36 Urine Opiates Screen Negative 02/18/22 Unknown Urine Methadone Screen Negative 02/18/22 Unknown Ur Barbiturates Screen Negative 02/18/22 Unknown Ur Phencyclidine Scrn Negative 02/18/22 Unknown Ur Amphetamines Screen Negative 02/18/22 Unknown U Benzodiazepines Scrn Negative 02/18/22 Unknown Urine Cocaine Screen Negative 02/18/22 Unknown U Marijuana (THC) Screen Negative 02/18/22 Unknown Drugs of Abuse Note Disclamer 02/18/22 Unknown Plasma/Serum Alcohol < 0.01 % (0-0.07) 02/18/22 21:02 Summers/IV: Voiding Method Indwelling Catheter Active Medications - Current Medications Current Medications: Generic Name Dose Route Start Last Admin Trade Name Freq PRN Reason Stop Dose Admin Acetaminophen 650 mg 03/03/22 09:00 Acetaminophen 325 Mg/10.15 Ml Oral Liqd Unit Dose FEEDTUBE Q4H PRN Pain, Mild (1-3); TEMP > 100.4 Albuterol 2.5 mg 03/12/22 20:00 03/28/22 15:09 Albuterol 2.5 Mg/3 Ml Nebu IH 2.5 mg Q6HRT LAZARUS Administration Famotidine 20 mg 02/25/22 10:00 03/28/22 10:28 Famotidine 20 Mg Tab FEEDTUBE 20 mg BID LAZARUS Administration Heparin Sodium (Porcine) 5,000 unit 02/19/22 06:00 03/28/22 15:05 Heparin 5,000 Unit/1 Ml Vial SUB-Q 5,000 unit Q8HR LAZARUS Administration Ceftriaxone Sodium 1 gm in 50 mls @ 100 mls/hr 03/27/22 11:00 03/28/22 10:37 Rocephin/Ns 1 Gm/50 Ml IV 03/29/22 11:29 100 mls/hr Q24H LAZARUS Administration Protocol Levetiracetam 500 mg 02/25/22 22:00 03/28/22 10:28 Levetiracetam 500 Mg/5 Ml Oral Liqd FEEDTUBE 500 mg BID LAZARUS Administration Levothyroxine Sodium 25 mcg 02/26/22 06:00 03/28/22 06:32 Levothyroxine 25 Mcg Tab FEEDTUBE 25 mcg QAM@0600 LAZARUS Administration Magnesium Hydroxide 30 ml 02/19/22 02:02 Magnesium Hydroxide (Mom) Oral Liqd Udc PO Q4H PRN Constipation Midodrine 2.5 mg 03/19/22 12:00 03/28/22 13:02 Midodrine 2.5 Mg Tab FEEDTUBE 2.5 mg TID@0800,1200,1600 LAZARUS Administration Multi-Ingred Cream/Lotion/Oil/Oint 1 applic 02/24/22 15:05 Mineral Oil/Petrolatum, White Ophth Oint 3.5 Gm OU Q4HR PRN Dry Eye(s) Ondansetron HCl 4 mg 02/19/22 02:02 Ondansetron 4 Mg/2 Ml Inj IV Q8H PRN Nausea And Vomiting Pravastatin Sodium 40 mg 02/25/22 22:00 03/27/22 22:15 Pravastatin 40 Mg Tab FEEDTUBE 40 mg QHS LAZARUS Administration Senna/Docusate Sodium 1 tab 02/24/22 22:00 03/28/22 10:28 Sennosides/Docusate Sodium 8.6/50 Mg Tab FEEDTUBE 1 tab BID LAZARUS Administration Sodium Chloride 10 ml 02/19/22 10:00 03/28/22 10:28 Sodium Chloride 0.9% 10 Ml Flush Syringe IV 10 ml BID LAZARUS Administration Sodium Chloride 10 ml 02/19/22 02:02 03/03/22 14:21 Sodium Chloride 0.9% 10 Ml Flush Syringe IV 10 ml PRN PRN Administration LINE FLUSH Nutrition/Malnutrition Assess - Dietary Evaluation Nutrition/Malnutrition Findings: Nutrition Notes Start: 02/19/22 14:29 Freq: Status: Active Protocol: Document 03/21/22 15:43 IVAN (Rec: 03/21/22 15:45 IVAN [id number]) Nutrition Notes Initial or Follow up Reassessment Current Diagnosis Hypertension,Respiratory Failure,Hyperlipidemia Other Pertinent Diagnosis Asp pneu, acute encephalopathy , seizure d/o, partial blindness Current Diet TF - Vital AF 1.2 at 50ml/hr Labs/Tests Reviewed Pertinent Medications Reviewed Height 5 ft 3 in Weight 63.2 kg [place] Body Weight (kg) 56.36 BMI 24.7 Weight Status Appropriate Subjective/Other Information Pt remains on vent support; still awaiting decision on guardianship for trach/PEG placement. Pt continues to tolerate TF at goal rate. Last BM was 03/18 per RN verbal report. Percent of energy/protein needs met: 90% energy 100% pro Burn Absent Trauma Absent #1 Nutrition Diagnosis Inadequate oral intake Diagnosis Progress(for reassessment Continues documentation) Is patient on ventilator? Yes Is Patient Ambulatory and/or Out of Bed No REE-([place]-confined to bed) [phone] Calculation [facility] Additional Notes Pro needs 1.2-2g/k-126g/ day Fluid needs 1ml/kcal Nutrition Intervention Nutrition Support: Continue Vital AF 1.2 at 50ml/ hr with 75ml water flush q4h. Kcal 1,440 Protein (gm) 90 Carbohydrates (gm) 133 Fat (gm) 65 Fluid (mL) 973 Fiber (gm) 6 Goal #1 TF tolerance Goal #2 TF to meet at least 75% energy and pro needs Follow-Up By: 03/28/22 Additional Comments F/U: stable TF, trach/PEG placement, vent status, wt, BM <SILVIA BUCHANAN - Last Filed: 04/01/22 10:47> History Interval history: I saw and evaluated the patient. I agree with the findings and the plan of care as documented in the Nurse Practitioner's~note, with the following corrections and additions. Hospitalist Physical - Constitutional Vitals: Temp Pulse Resp BP Pulse Ox 97.9 F 71 14 121/68 97 04/01/22 07:09 04/01/22 07:51 04/01/22 07:51 04/01/22 07:43 04/01/22 07:43 HEART Score - HEART Score Troponin: Troponin T < 0.010 ng/mL (0.00-0.029) 02/18/22 21:02 Results - Labs CBC & Chem 7: 03/31/22 03:56 03/31/22 03:56 Labs: Laboratory Last Values WBC 9.7 K/mm3 (4.5-11.0) 03/31/22 03:56 RBC 3.08 M/mm3 (3.65-5.03) L 03/31/22 03:56 Hgb 9.5 gm/dl (11.8-15.2) L 03/31/22 03:56 Hct 30.1 % (35.5-45.6) L 03/31/22 03:56 MCV 98 fl (84-94) H 03/31/22 03:56 MCH 31 pg (28-32) 03/31/22 03:56 MCHC 32 % (32-34) 03/31/22 03:56 RDW 17.7 % (13.2-15.2) H 03/31/22 03:56 Plt Count 331 K/mm3 (140-440) 03/31/22 03:56 Lymph % (Auto) 7.5 % (13.4-35.0) L 03/28/22 04:06 Johnson % (Auto) 10.5 % (0.0-7.3) H 03/28/22 04:06 Eos % (Auto) 0.9 % (0.0-4.3) 03/28/22 04:06 Baso % (Auto) 0.4 % (0.0-1.8) 03/28/22 04:06 Lymph # (Auto) 1.1 K/mm3 (1.2-5.4) L 03/28/22 04:06 Johnson # (Auto) 1.5 K/mm3 (0.0-0.8) H 03/28/22 04:06 Eos # (Auto) 0.1 K/mm3 (0.0-0.4) 03/28/22 04:06 Baso # (Auto) 0.1 K/mm3 (0.0-0.1) 03/28/22 04:06 Add Manual Diff Complete 03/03/22 03:54 Total Counted 100 03/03/22 03:54 Seg Neutrophils % 80.7 % (40.0-70.0) H 03/28/22 04:06 Seg Neuts % (Manual) 95.0 % (40.0-70.0) H 03/03/22 03:54 Band Neutrophils % 0 % 03/03/22 03:54 Lymphocytes % (Manual) 3.0 % (13.4-35.0) L 03/03/22 03:54 Reactive Lymphs % (Man) 0 % 03/03/22 03:54 Monocytes % (Manual) 2.0 % (0.0-7.3) 03/03/22 03:54 Eosinophils % (Manual) 0 % (0.0-4.3) 03/03/22 03:54 Basophils % (Manual) 0 % (0.0-1.8) 03/03/22 03:54 Metamyelocytes % 0 % 03/03/22 03:54 Myelocytes % 0 % 03/03/22 03:54 Promyelocytes % 0 % 03/03/22 03:54 Blast Cells % 0 % 03/03/22 03:54 Nucleated RBC % Not Reportable 03/03/22 03:54 Seg Neutrophils # 11.4 K/mm3 (1.8-7.7) H 03/28/22 04:06 Seg Neutrophils # Man 18.5 K/mm3 (1.8-7.7) H 03/03/22 03:54 Band Neutrophils # 0.0 K/mm3 03/03/22 03:54 Lymphocytes # (Manual) 0.6 K/mm3 (1.2-5.4) L 03/03/22 03:54 Abs React Lymphs (Man) 0.0 K/mm3 03/03/22 03:54 Monocytes # (Manual) 0.4 K/mm3 (0.0-0.8) 03/03/22 03:54 Eosinophils # (Manual) 0.0 K/mm3 (0.0-0.4) 03/03/22 03:54 Basophils # (Manual) 0.0 K/mm3 (0.0-0.1) 03/03/22 03:54 Metamyelocytes # 0.0 K/mm3 03/03/22 03:54 Myelocytes # 0.0 K/mm3 03/03/22 03:54 Promyelocytes # 0.0 K/mm3 03/03/22 03:54 Blast Cells # 0.0 K/mm3 03/03/22 03:54 WBC Morphology Not Reportable 03/03/22 03:54 Hypersegmented Neuts Not Reportable 03/03/22 03:54 Hyposegmented Neuts Not Reportable 03/03/22 03:54 Hypogranular Neuts Not Reportable 03/03/22 03:54 Smudge Cells Not Reportable 03/03/22 03:54 Toxic Granulation Not Reportable 03/03/22 03:54 Toxic Vacuolation Not Reportable 03/03/22 03:54 Dohle Bodies Not Reportable 03/03/22 03:54 Pelger-Huet Anomaly Not Reportable 03/03/22 03:54 Lakshmi Rods Not Reportable 03/03/22 03:54 Platelet Estimate Consistent w auto 03/03/22 03:54 Clumped Platelets Not Reportable 03/03/22 03:54 Plt Clumps, EDTA Not Reportable 03/03/22 03:54 Large Platelets Not Reportable 03/03/22 03:54 Giant Platelets Not Reportable 03/03/22 03:54 Platelet Satelliting Not Reportable 03/03/22 03:54 Plt Morphology Comment Not Reportable 03/03/22 03:54 RBC Morphology Not Reportable 03/03/22 03:54 Dimorphic RBCs Not Reportable 03/03/22 03:54 Polychromasia Not Reportable 03/03/22 03:54 Hypochromasia Not Reportable 03/03/22 03:54 Poikilocytosis Not Reportable 03/03/22 03:54 Anisocytosis 1+ 03/03/22 03:54 Microcytosis Not Reportable 03/03/22 03:54 Macrocytosis Not Reportable 03/03/22 03:54 Spherocytes Not Reportable 03/03/22 03:54 Pappenheimer Bodies Not Reportable 03/03/22 03:54 Sickle Cells Not Reportable 03/03/22 03:54 Target Cells Not Reportable 03/03/22 03:54 Tear Drop Cells Not Reportable 03/03/22 03:54 Ovalocytes Not Reportable 03/03/22 03:54 Helmet Cells Not Reportable 03/03/22 03:54 [place] Bodies Not Reportable 03/03/22 03:54 [place] Rings Not Reportable 03/03/22 03:54 [place] Cells Not Reportable 03/03/22 03:54 Bite Cells Not Reportable 03/03/22 03:54 Crenated Cell Not Reportable 03/03/22 03:54 Elliptocytes Not Reportable 03/03/22 03:54 Acanthocytes (Spur) Not Reportable 03/03/22 03:54 Rouleaux Not Reportable 03/03/22 03:54 Hemoglobin C Crystals Not Reportable 03/03/22 03:54 Schistocytes Not Reportable 03/03/22 03:54 Malaria parasites Not Reportable 03/03/22 03:54 Cash Bodies Not Reportable 03/03/22 03:54 Hem Pathologist Commnt No 03/03/22 03:54 PT 16.2 Sec. (12.2-14.9) H 03/11/22 04:02 INR 1.16 (0.87-1.13) H 03/11/22 04:02 ABG pH 7.392 pH Units (7.350-7.450) 03/22/22 14:25 ABG pCO2 54.4 mm Hg 03/22/22 14:25 ABG pO2 150.5 mm Hg (80.0-90.0) H 03/22/22 14:25 ABG HCO3 32.4 mmol/L (20.0-26.0) H 03/22/22 14:25 ABG O2 Saturation 98.8 % (95.0-99.0) 03/22/22 14:25 ABG O2 Content 15.8 (0.0-44) 03/22/22 14:25 ABG Base Excess 6.2 mmol/L (-2.0-3.0) H 03/22/22 14:25 ABG Hemoglobin 11.4 gm/dl (14.0-18.0) L 03/22/22 14:25 ABG Carboxyhemoglobin 1.6 % (0.0-5.0) 03/22/22 14:25 ABG Methemoglobin 0.6 % (0.0-1.5) 03/22/22 14:25 Oxyhemoglobin 96.6 % (95.0-99.0) 03/22/22 14:25 FiO2 30 % 03/22/22 14:25 Sodium 135 mmol/L (137-145) L 03/31/22 03:56 Potassium 4.5 mmol/L (3.6-5.0) 03/31/22 03:56 Chloride 97.4 mmol/L (98-107) L 03/31/22 03:56 Carbon Dioxide 31 mmol/L (22-30) H 03/31/22 03:56 Anion Gap 11 mmol/L 03/31/22 03:56 BUN 18 mg/dL (9-20) 03/31/22 03:56 Creatinine 0.5 mg/dL (0.8-1.3) L 03/31/22 03:56 Estimated GFR > 60 ml/min 03/31/22 03:56 BUN/Creatinine Ratio 36 % 03/31/22 03:56 Glucose 102 mg/dL (75-100) H 03/31/22 03:56 POC Glucose 118 mg/dL (70-105) H 04/01/22 00:09 Lactic Acid 1.20 mmol/L (0.7-2.0) 02/18/22 21:02 Calcium 8.8 mg/dL (8.4-10.2) 03/31/22 03:56 Phosphorus 3.50 mg/dL (2.5-4.5) 03/20/22 04:09 Magnesium 2.00 mg/dL (1.7-2.3) 03/20/22 04:09 Total Bilirubin 0.30 mg/dL (0.1-1.2) 03/10/22 03:57 AST 17 units/L (5-40) 03/10/22 03:57 ALT 18 units/L (7-56) 03/10/22 03:57 Alkaline Phosphatase 89 units/L (35-129) 03/10/22 03:57 Ammonia 14.0 umol/L (25-60) L 02/18/22 23:22 Troponin T < 0.010 ng/mL (0.00-0.029) 02/18/22 21:02 Total Protein 6.6 g/dL (6.3-8.2) 03/10/22 03:57 Albumin 1.9 g/dL (3.9-5) L 03/10/22 03:57 Albumin/Globulin Ratio 0.4 % 03/10/22 03:57 Urine Color Yellow (Yellow) 03/27/22 08:36 Urine Turbidity Cloudy (Clear) 03/27/22 08:36 Urine pH 7.0 (5.0-7.0) 02/18/22 Unknown Ur Specific Follett 1.015 (1.003-1.030) 02/18/22 Unknown Specific [place] (Man) 1.020 (1.003-1.030) 03/27/22 08:36 Urine Protein <15 mg/dl mg/dL (Negative) 02/18/22 Unknown Ur Protein (Man) 1+ mg/dL (Negative) 03/27/22 08:36 Urine Glucose (UA) Negative mg/dL (Negative) 02/18/22 Unknown Urine Ketones Negative mg/dL (Negative) 02/18/22 Unknown Ur Ketones (Man) Negative (Negative) 03/27/22 08:36 Urine Blood Trace (Negative) 02/18/22 Unknown Urine Nitrite Negative (Negative) 02/18/22 Unknown Ur Nitrite (Man) Negative (Negative) 03/27/22 08:36 Ur Reducing Substances Not Reportable 03/27/22 08:36 Urine Bilirubin Negative (Negative) 02/18/22 Unknown Urine Bilirubin (Man) Negative (Negative) 03/27/22 08:36 Urine Ictotest Not Reportable 03/27/22 08:36 Urine Urobilinogen < 2.0 mg/dL (<2.0) 02/18/22 Unknown Ur Leukocyte Esterase Negative (Negative) 02/18/22 Unknown Leukocyte Esterase (Man) Moderate (Negative) 03/27/22 08:36 Urine WBC (Auto) > 182.0 /HPF (0.0-6.0) H 03/27/22 08:36 Urine RBC (Auto) 9.0 /HPF (0.0-6.0) 03/27/22 08:36 U Epithel Cells (Auto) < 1.0 /HPF (0-13.0) 03/27/22 08:36 Urine RBC (Manual) 1+ (Negative) 03/27/22 08:36 Urine Mucus Few /HPF 03/27/22 08:36 Urine Yeast (Budding) 2+ /HPF 03/27/22 08:36 Urine Opiates Screen Negative 02/18/22 Unknown Urine Methadone Screen Negative 02/18/22 Unknown Ur Barbiturates Screen Negative 02/18/22 Unknown Ur Phencyclidine Scrn Negative 02/18/22 Unknown Ur Amphetamines Screen Negative 02/18/22 Unknown U Benzodiazepines Scrn Negative 02/18/22 Unknown Urine Cocaine Screen Negative 02/18/22 Unknown U Marijuana (THC) Screen Negative 02/18/22 Unknown Drugs of Abuse Note Disclamer 02/18/22 Unknown Plasma/Serum Alcohol < 0.01 % (0-0.07) 02/18/22 21:02 Summers/IV: Voiding Method Indwelling Catheter Active Medications - Current Medications Current Medications: Generic Name Dose Route Start Last Admin Trade Name Freq PRN Reason Stop Dose Admin Acetaminophen 650 mg 03/03/22 09:00 Acetaminophen 325 Mg/10.15 Ml Oral Liqd Unit Dose FEEDTUBE Q4H PRN Pain, Mild (1-3); TEMP > 100.4 Albuterol 2.5 mg 03/12/22 20:00 09/13/22 07:50 Albuterol 2.5 Mg/3 Ml Nebu IH 2.5 mg Q6HRT LAZARUS Administration Famotidine 20 mg 02/25/22 10:00 04/01/22 09:20 Famotidine 20 Mg Tab FEEDTUBE 20 mg BID LAZARUS Administration Heparin Sodium (Porcine) 5,000 unit 02/19/22 06:00 04/01/22 05:22 Heparin 5,000 Unit/1 Ml Vial SUB-Q 5,000 unit Q8HR LAZARUS Administration Levetiracetam 500 mg 02/25/22 22:00 04/01/22 09:20 Levetiracetam 500 Mg/5 Ml Oral Liqd FEEDTUBE 500 mg BID LAZARUS Administration Levothyroxine Sodium 25 mcg 02/26/22 06:00 04/01/22 05:22 Levothyroxine 25 Mcg Tab FEEDTUBE 25 mcg QAM@0600 LAZARUS Administration Magnesium Hydroxide 30 ml 02/19/22 02:02 Magnesium Hydroxide (Mom) Oral Liqd Udc PO Q4H PRN Constipation Midodrine 2.5 mg 03/19/22 12:00 04/01/22 09:20 Midodrine 2.5 Mg Tab FEEDTUBE 2.5 mg TID@0800,1200,1600 LAZARUS Administration Multi-Ingred Cream/Lotion/Oil/Oint 1 applic 02/24/22 15:05 Mineral Oil/Petrolatum, White Ophth Oint 3.5 Gm OU Q4HR PRN Dry Eye(s) Ondansetron HCl 4 mg 02/19/22 02:02 Ondansetron 4 Mg/2 Ml Inj IV Q8H PRN Nausea And Vomiting Pravastatin Sodium 40 mg 02/25/22 22:00 03/31/22 21:01 Pravastatin 40 Mg Tab FEEDTUBE 40 mg QHS LAZARUS Administration Senna/Docusate Sodium 1 tab 02/24/22 22:00 03/31/22 23:35 Sennosides/Docusate Sodium 8.6/50 Mg Tab FEEDTUBE 1 tab BID LAZARUS Administration Sodium Chloride 10 ml 02/19/22 10:00 04/01/22 09:20 Sodium Chloride 0.9% 10 Ml Flush Syringe IV 10 ml BID LAZARUS Administration Sodium Chloride 10 ml 02/19/22 02:02 03/03/22 14:21 Sodium Chloride 0.9% 10 Ml Flush Syringe IV 10 ml PRN PRN Administration LINE FLUSH Nutrition/Malnutrition Assess - Dietary Evaluation Nutrition/Malnutrition Findings: Nutrition Notes Start: 02/19/22 14:29 Freq: Status: Active Protocol: Document 03/31/22 14:18 IVAN (Rec: 03/31/22 14:23 IVAN [id number]) Nutrition Notes Initial or Follow up Reassessment Current Diagnosis Hypertension,Respiratory Failure,Hyperlipidemia Other Pertinent Diagnosis Asp pneu, acute encephalopathy , seizure d/o, partial blindness Current Diet TF - Promote at 65ml/hr Labs/Tests Na 135 CO2 - 31 Pertinent Medications Reviewed Height 5 ft 3 in Weight 63.2 kg [place] Body Weight (kg) 56.36 BMI 24.7 Subjective/Other Information Pt remains on vent support; still awaiting decision on guardianship for trach/PEG placement. Observed Promote infusing at 50ml/hr; RN informed of goal rate. BM x 1 on yesterday. Percent of energy/protein needs met: 75% energy 99% pro Burn Absent Trauma Absent #1 Nutrition Diagnosis Inadequate oral intake Diagnosis Progress(for reassessment Continues documentation) Is patient on ventilator? Yes Is Patient Ambulatory and/or Out of Bed No REE-([facility]-confined to bed) [phone] Calculation Used for Recommendations [facility] Additional Notes Pro needs 1.2-2g/k-126g/ day Fluid needs 1ml/kcal Nutrition Intervention Nutrition Support: Continue Promote to goal rate of 65ml/hr. Provide 50ml water flush q4h. Kcal 1,560 Protein (gm) 98 Carbohydrates (gm) 203 Fat (gm) 41 Fluid (mL) 1,309 Fiber (gm) 0 Goal #1 TF tolerance Goal #2 TF to meet 75%-100% energy and pro needs Goal #3 Wound healing Follow-Up By: 04/04/22 Additional Comments F/U: TF goal rate/tolerance
[2022-03-28] MEDS: PRAVASTATIN 40 MG TAB FEEDTUBE SCH (21:01)
[2022-03-29] MEDS: ALBUTEROL 2.5 MG/3 ML NEBU IH SCH ×4 (02:40→20:02)
[2022-03-29 05:07] LABS: Hematocrit 27.8 % (35.5-45.6); Hemoglobin 8.9 gm/dl (11.8-15.2); Mean Corpuscular HGB Conc 32 % (32-34); Mean Corpuscular Volume 98 fl (84-94); Platelet Count 310 K/mm3 (140-440); Red Blood Count 2.85 M/mm3 (3.65-5.03); Red Cell Distribution Width 17.8 % (13.2-15.2)
[2022-03-29] MEDS: HEPARIN 5,000 UNIT/1 ML VIAL SUB-Q SCH ×3 (06:04→21:29)
[2022-03-29] MEDS: LEVOTHYROXINE 25 MCG TAB FEEDTUBE SCH (06:04)
[2022-03-29] MEDS: levETIRAcetam 500 MG/5 ML ORAL LIQD FEEDTUBE SCH ×2 (09:35→21:29)
[2022-03-29] MEDS: SENNOSIDES/DOCUSATE SODIUM 8.6/50 MG TAB FEEDTUBE SCH ×2 (09:35→21:29)
[2022-03-29] MEDS: MIDODRINE 2.5 MG TAB FEEDTUBE SCH ×3 (09:35→15:06)
[2022-03-29] MEDS: FAMOTIDINE 20 MG TAB FEEDTUBE SCH ×2 (09:36→21:29)
--- NOTE | 2022-03-29 09:44 | Progress Note ---
<CODYCARSON ZiaRadha - Last Filed: 03/29/22 09:53> Assessment and Plan Assessment and plan: This is a 51-year-old male with HTN, seizure disorder, Down syndrome, HLD, partial blindness admitted with aspiration pneumonia, probable bronchogenic carcinoma, acute hypoxic respiratory failure and acute encephalopathy Neuro: h/o seizure disorder, Down syndrome, partial blindness -Reorientation as needed -Maintain sleep-wake cycle -aspiration/seizure precautions -As needed analgesia -CT head showed no acute abnormality -Continue Keppra Cardiac: h/o HTN, HLD -Cardiology consulted, appreciate recommendations -Blood pressure monitoring per protocol -PO Midodrine Respiratory: Acute hypoxic respiratory failure, ruled out bronchogenic carcinoma -CCM consulted, appreciate recommendations -Intubated on 02/24 with a 8.0 at 23 at the lips but extubated 02/28 -reintubated 02/28 with 8.0 OETT -Vent settings: AC rate 14, TV 360, PEEP 6, FO2 30% -See RT notes for titration -VAP bundle -SPO2 monitoring per protocol -02/18 CTA chest showed no evidence of pulmonary embolism, suspected bronchogenic carcinoma with associated obstruction of the right lower lobe proximal bronchus segment, 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 adenopathy and suspected to left lower lobe metastatic nodule -02/26 Bronch->mucous, no lesion noted -02/27 CT chest read: right mainstem bronchus patent with small amount of interval bronchial fluid which may be mucus (this may account for the appearance of the prior CTA chest fluid-filled airway rather than entering bronchial lesion), previously seen complete left lower lobe since related to bronchial occlusion has significantly improved, there is persistent compressive atelectasis in the right lower lung secondary to the pleural effusion, bilateral pleural effusions, right lung pneumonia -CT neck showed no acute changes -s/p steroids GI: Moderate protein calorie malnutrition -24 hours +1030 mL -PPI -NTR consulted for tube feedings -BR: Senokot S : NAD -Monitor intake and output -Renally dose medications -Avoid nephrotoxic medications -Trend BMP ID: UTI, Aspiration PNA (resolved), sacral wound (POA) -UA with pyuria, mod LE with leukocytosis -WOCN consulted -Dressing changes per nursing -S/p Rocephin for 5 days (02/19-02/24) -Current abx therapy: rocephin for 3 days -Monitor WBC and temperature curve Endo: NAD -Avoid hypoglycemia -Accu-Cheks every 6 -Avoid hypoglycemia Heme: NAD -Trend CBC -Transfuse hemoglobin less than 7 -SCDs to BLE while in bed Dispo: -Awaiting guardianship for trach/peg The high probability of a clinically significant, sudden or life threatening deterioration of the [resp] system(s) required my full and direct attention, intervention and personal management. The aggregate critical care time was [60] minutes. This time is in addition to time spent performing reported procedures but includes the following: [x] Data Review and interpretation [x] Patient assessment and monitoring of vital signs [x] Documentation [x] Medication orders and management Disposition Plan: icu Total Time Spent with Patient (Minutes): 60 History Interval history: This is a 51-year-old male with HTN, seizure disorder, Down syndrome, HLD, and partial blindness was a resident of the [facility] who presented to emergency department on 02/19 for evaluation of change in mental status. Of note patient was recently discharged a few weeks ago for a seizure disorder and UTI. Upon arrival to the emergency department patient was noted to be hypoxic with SPO2 in the 80s on a nonrebreather with difficulty breathing. Work-up in the emergency department revealed CXR which showed elevation of the right hemidiaphragm, right lower lung atelectasis and effusion with mild increased pulmonary vascularity but no pneumothorax and CT of the head did not show any acute abnormality. 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 Patient was admitted to the hospitalist service to the floor. Hospital course to date: 02/19/2022. Consult pulmonary for further evaluation and possible bronchoscopy. I suspect patient has component of aspiration pneumonia as well. We will obtain a speech therapy evaluation for swallowing and start empiric antibiotics. Continue O2 supplementation to maintain sats greater than 92%. 02/20/2022. Pulmonary feels that the abnormality seen on CT scan is highly unlikely for a mass given negative chest x-ray 1 month ago and no risk factors. Etiology is likely secondary to aspiration from possibly a foreign body most likely food with atelectasis of the right lower lobe. Bronchoscopy is needed in the case to evaluate to see if lung mass is there vs foreign body, but at this time not able to do because no identifiable person that is able to give consent. Continue aspiration precautions and continue speech therapy evaluation for swallowing. Keep n.p.o. for now 02/21/2022. Patient remains NPO. Consider DHT placement. Follow-up with speech therapy evaluation. Pulmonology to consider bronchoscopy if able to obtain consent. Continue IV antibiotics for aspiration pneumonia 02/22/2022. Patient remains NPO. Consider DHT placement. Follow-up with speech therapy evaluation. Pulmonology to consider bronchoscopy if able to obtain consent. Continue IV antibiotics for aspiration pneumonia 02/23/2022. DHT placed yesterday. TF initiated for nutritional support. Patient currently with strict NPO. Aspiration precautions. Pulmonology to consider bronchoscopy if able to obtain consent. Continue IV antibiotics for aspiration pneumonia 02/24: Patient was transferred to the ICU for further monitoring. This morning patient remained on high flow nasal cannula on 40 L/100% and despite repeated nasotracheal suctioning patient SPO2 remained in the 80s. Patient was placed on nonrebreather and SPO2 increased to upper 80s. Patient was subsequently intubated by anesthesia. Started on sedation. 02/25: Patient remains sedated on fentanyl, potassium and magnesium repleted. IV fluids and amlodipine discontinued. Possible bronchoscopy tomorrow. 02/26: Patient had a bronchoscopy today which showed mucus and no endobronchial lesions or masses. FiO2 was increased to 100 during and postprocedure weaning as tolerated. Repeat CXR is much improved after bronc. Given 1 L LR bolus due to hypotension. No acute events reported overnight. 02/27: Decreased PEEP, will repeat CT of chest. no acute changes overnight. 02/28: Patient was extubated today however had to be be intubated shortly after. Patient ETT looked mispositioned on x-ray and Dr. Alonzo did do a bedside bronc. Patient was briefly hypotensive and on Levophed postintubation however Levophed was quickly titrated off and patient did not require central line. No acute events reported overnight. Will obtain CT neck d/t difficulty intubating. Ethic committee consulted. 03/01: Overnight patient was hypotensive and started on IVF. Patient started on steroids as no air leak noted and hypotension and given 2 L LR 03/02: Overnight patient received bolus per RN report, no orders seen. Continue supportive care. 03/04: MAIDA overnight. Remains stable on the vent. Awaiting on desicion from [facility] for possible trach and PEG. Continue current supportive measures 03/05: MAIDA overnight. Awaiting on desicion from [facility] for possible trach and PEG. Midodrine held yesterday, HR improved. Continue current supportive measures. Daily PSV trial as tolerated per [facility] 03/06: Remains stable on the vent. Continue current supportive measures, daily PSV trial per CCM. Awaiting on desicion for possible trach and PEG. 03/07: MAIDA overnight, remains stable. Continue daily PSV trial as tolerated. Awaiting on desicion for possible trach and PEG. 03/08: Patient failed PSV trial this am due to tachycardia and increase RR. Continue supportive measures and daily PSV trial as tolerated. Possible discussion with ethics and [facility] on Thursday in regards to medical necessity, may need to consider two physician consent if no one is able to claim responsibility for this patient. 03/09: MAIDA overnight. Continue current supportive measures and daily PSV trail as tolerated. Awaiting on decision for possible trach and PEG, discussion with E yola possibly tomorrow per [facility]. 03/10: no acute events overnight, PSV today. replete potassium. 03/11: No acute events reported overnight, patient failed PSV yesterday and will repeat today. Hospital to start guardianship process. 03/12: No acute events overnight. PSV today 03/13: Patient given 500ml normal saline and started on midodrine for hypotension. No acute events reported overnight. Failed pressure support again this morning. 03/14: No acute events reported overnight, patient blood pressure seems better therefore midodrine discontinued. RT placed on CPAP need lasted for couple luis manuel rs. Will remove summers 03/15: Midodrine was restarted yesterday evening for hypotension, Summers catheter not removed due to sacral ulcer and history of retention. Unable to crush Flomax and patient will not tolerate doxazosin given hypotension. Given LR bolus this morning. If blood pressure continues to be borderline after bolus, we will adjust management as needed. CPAP as tolerated 03/16: No acute events reported overnight, patient placed on CPAP trial this morning which he failed. 03/17: RT attempted PSV which he failed again today. No acute events reported overnight. 03/18: Awaiting ethic committee's decision on Trach/PEG. Patient tolerated PSV trial for over 3 hrs today, continue daily PSV trial as tolerated. 03/19: MAIDA overnight. Continue current supportive measures. Daily PSV trial as tolerated. Awaiting on desicion for possible trach and PEG. 03/20: MAIDA overnight. Daily PSV trial as tolerated. Awaiting decision on guardianship for trach and PEG. 03/21: Remains stable, condition unchanged. Continue supportive measures and daily PSV trial as tolerated. 03/22: MAIDA overnight. Continue current supportive measures. Daily PSV trial as tolerated 03/23: MAIDA overnight, continue supportive measures and daily PSV trial as tolerated. 03/24: Condition unchanged. Still waiting on Ethics' decision for possible trach/Peg. Continue supportive measures and daily PSV trial as tolerated. 03/25: PSV attempt today, does open eyes to stimuli, no acute events overnight. 03/26: Yesterday evening Summers catheter was removed as he was due to be changed, condom cath placed. Overnight patient had good urine output and per RN repeated bladder scans showed less than 200 mL of urine. We will continue to monitor urine output. RT to attempt PSV 03/27: Patient has leukocytosis today and UA has pyuria with moderate LE therefore he will be started on antibiotics. 03/28: Leukocytosis improving. No acute events reported overnight. 03/29: No acute events overnight. Continue supportive care. Hospitalist Physical - Constitutional Vitals: Temp Pulse Resp BP Pulse Ox 98.3 F 80 15 95/47 95 03/29/22 08:00 03/29/22 09:00 03/29/22 09:00 03/29/22 09:00 03/29/22 09:00 General appearance: Present: no acute distress, well-nourished - EENT Eyes: Present: PERRL - Neck Neck: Present: normal ROM - Respiratory Respiratory effort: normal Respiratory: bilateral: diminished, rhonchi - Cardiovascular Rhythm: regular Heart Sounds: Present: S1 & S2. Absent: systolic murmur, diastolic murmur - Extremities Extremities: no ischemia, pulses intact, pulses symmetrical, No edema, normal temperature, normal color Peripheral Pulses: within normal limits - Abdominal General gastrointestinal: soft, non-tender, non-distended, normal bowel sounds - Integumentary Integumentary: Present: clear, warm - Psychiatric Psychiatric: cooperative - Neurologic Neurologic: moves all extremities - Allied Health Allied health notes reviewed: nursing, RT HEART Score - HEART Score Troponin: Troponin T < 0.010 ng/mL (0.00-0.029) 02/18/22 21:02 Results - Labs CBC & Chem 7: 03/29/22 04:22 03/27/22 03:52 Labs: Laboratory Last Values WBC 9.9 K/mm3 (4.5-11.0) 03/29/22 04:22 RBC 2.85 M/mm3 (3.65-5.03) L 03/29/22 04:22 Hgb 8.9 gm/dl (11.8-15.2) L 03/29/22 04:22 Hct 27.8 % (35.5-45.6) L 03/29/22 04:22 MCV 98 fl (84-94) H 03/29/22 04:22 MCH 31 pg (28-32) 03/29/22 04:22 MCHC 32 % (32-34) 03/29/22 04:22 RDW 17.8 % (13.2-15.2) H 03/29/22 04:22 Plt Count 310 K/mm3 (140-440) 03/29/22 04:22 Lymph % (Auto) 7.5 % (13.4-35.0) L 03/28/22 04:06 Ray % (Auto) 10.5 % (0.0-7.3) H 03/28/22 04:06 Eos % (Auto) 0.9 % (0.0-4.3) 03/28/22 04:06 Baso % (Auto) 0.4 % (0.0-1.8) 03/28/22 04:06 Lymph # (Auto) 1.1 K/mm3 (1.2-5.4) L 03/28/22 04:06 Ray # (Auto) 1.5 K/mm3 (0.0-0.8) H 03/28/22 04:06 Eos # (Auto) 0.1 K/mm3 (0.0-0.4) 03/28/22 04:06 Baso # (Auto) 0.1 K/mm3 (0.0-0.1) 03/28/22 04:06 Add Manual Diff Complete 03/03/22 03:54 Total Counted 100 03/03/22 03:54 Seg Neutrophils % 80.7 % (40.0-70.0) H 03/28/22 04:06 Seg Neuts % (Manual) 95.0 % (40.0-70.0) H 03/03/22 03:54 Band Neutrophils % 0 % 03/03/22 03:54 Lymphocytes % (Manual) 3.0 % (13.4-35.0) L 03/03/22 03:54 Reactive Lymphs % (Man) 0 % 03/03/22 03:54 Monocytes % (Manual) 2.0 % (0.0-7.3) 03/03/22 03:54 Eosinophils % (Manual) 0 % (0.0-4.3) 03/03/22 03:54 Basophils % (Manual) 0 % (0.0-1.8) 03/03/22 03:54 Metamyelocytes % 0 % 03/03/22 03:54 Myelocytes % 0 % 03/03/22 03:54 Promyelocytes % 0 % 03/03/22 03:54 Blast Cells % 0 % 03/03/22 03:54 Nucleated RBC % Not Reportable 03/03/22 03:54 Seg Neutrophils # 11.4 K/mm3 (1.8-7.7) H 03/28/22 04:06 Seg Neutrophils # Man 18.5 K/mm3 (1.8-7.7) H 03/03/22 03:54 Band Neutrophils # 0.0 K/mm3 03/03/22 03:54 Lymphocytes # (Manual) 0.6 K/mm3 (1.2-5.4) L 03/03/22 03:54 Abs React Lymphs (Man) 0.0 K/mm3 03/03/22 03:54 Monocytes # (Manual) 0.4 K/mm3 (0.0-0.8) 03/03/22 03:54 Eosinophils # (Manual) 0.0 K/mm3 (0.0-0.4) 03/03/22 03:54 Basophils # (Manual) 0.0 K/mm3 (0.0-0.1) 03/03/22 03:54 Metamyelocytes # 0.0 K/mm3 03/03/22 03:54 Myelocytes # 0.0 K/mm3 03/03/22 03:54 Promyelocytes # 0.0 K/mm3 03/03/22 03:54 Blast Cells # 0.0 K/mm3 03/03/22 03:54 WBC Morphology Not Reportable 03/03/22 03:54 Hypersegmented Neuts Not Reportable 03/03/22 03:54 Hyposegmented Neuts Not Reportable 03/03/22 03:54 Hypogranular Neuts Not Reportable 03/03/22 03:54 Smudge Cells Not Reportable 03/03/22 03:54 Toxic Granulation Not Reportable 03/03/22 03:54 Toxic Vacuolation Not Reportable 03/03/22 03:54 Dohle Bodies Not Reportable 03/03/22 03:54 Pelger-Huet Anomaly Not Reportable 03/03/22 03:54 Lakshmi Rods Not Reportable 03/03/22 03:54 Platelet Estimate Consistent w auto 03/03/22 03:54 Clumped Platelets Not Reportable 03/03/22 03:54 Plt Clumps, EDTA Not Reportable 03/03/22 03:54 Large Platelets Not Reportable 03/03/22 03:54 Giant Platelets Not Reportable 03/03/22 03:54 Platelet Satelliting Not Reportable 03/03/22 03:54 Plt Morphology Comment Not Reportable 03/03/22 03:54 RBC Morphology Not Reportable 03/03/22 03:54 Dimorphic RBCs Not Reportable 03/03/22 03:54 Polychromasia Not Reportable 03/03/22 03:54 Hypochromasia Not Reportable 03/03/22 03:54 Poikilocytosis Not Reportable 03/03/22 03:54 Anisocytosis 1+ 03/03/22 03:54 Microcytosis Not Reportable 03/03/22 03:54 Macrocytosis Not Reportable 03/03/22 03:54 Spherocytes Not Reportable 03/03/22 03:54 Pappenheimer Bodies Not Reportable 03/03/22 03:54 Sickle Cells Not Reportable 03/03/22 03:54 Target Cells Not Reportable 03/03/22 03:54 Tear Drop Cells Not Reportable 03/03/22 03:54 Ovalocytes Not Reportable 03/03/22 03:54 Helmet Cells Not Reportable 03/03/22 03:54 [place] Bodies Not Reportable 03/03/22 03:54 [place] Rings Not Reportable 03/03/22 03:54 [place] Cells Not Reportable 03/03/22 03:54 Bite Cells Not Reportable 03/03/22 03:54 Crenated Cell Not Reportable 03/03/22 03:54 Elliptocytes Not Reportable 03/03/22 03:54 Acanthocytes (Spur) Not Reportable 03/03/22 03:54 Rouleaux Not Reportable 03/03/22 03:54 Hemoglobin C Crystals Not Reportable 03/03/22 03:54 Schistocytes Not Reportable 03/03/22 03:54 Malaria parasites Not Reportable 03/03/22 03:54 Cash Bodies Not Reportable 03/03/22 03:54 Hem Pathologist Commnt No 03/03/22 03:54 PT 16.2 Sec. (12.2-14.9) H 03/11/22 04:02 INR 1.16 (0.87-1.13) H 03/11/22 04:02 ABG pH 7.392 pH Units (7.350-7.450) 03/22/22 14:25 ABG pCO2 54.4 mm Hg 03/22/22 14:25 ABG pO2 150.5 mm Hg (80.0-90.0) H 03/22/22 14:25 ABG HCO3 32.4 mmol/L (20.0-26.0) H 03/22/22 14:25 ABG O2 Saturation 98.8 % (95.0-99.0) 03/22/22 14:25 ABG O2 Content 15.8 (0.0-44) 03/22/22 14:25 ABG Base Excess 6.2 mmol/L (-2.0-3.0) H 03/22/22 14:25 ABG Hemoglobin 11.4 gm/dl (14.0-18.0) L 03/22/22 14:25 ABG Carboxyhemoglobin 1.6 % (0.0-5.0) 03/22/22 14:25 ABG Methemoglobin 0.6 % (0.0-1.5) 03/22/22 14:25 Oxyhemoglobin 96.6 % (95.0-99.0) 03/22/22 14:25 FiO2 30 % 03/22/22 14:25 Sodium 136 mmol/L (137-145) L 03/27/22 03:52 Potassium 4.2 mmol/L (3.6-5.0) 03/27/22 03:52 Chloride 98.6 mmol/L (98-107) 03/27/22 03:52 Carbon Dioxide 32 mmol/L (22-30) H 03/27/22 03:52 Anion Gap 10 mmol/L 03/27/22 03:52 BUN 23 mg/dL (9-20) H 03/27/22 03:52 Creatinine 0.6 mg/dL (0.8-1.3) L 03/27/22 03:52 Estimated GFR > 60 ml/min 03/27/22 03:52 BUN/Creatinine Ratio 38 % 03/27/22 03:52 Glucose 98 mg/dL (75-100) 03/27/22 03:52 POC Glucose 112 mg/dL (70-105) H 03/28/22 23:23 Lactic Acid 1.20 mmol/L (0.7-2.0) 02/18/22 21:02 Calcium 8.2 mg/dL (8.4-10.2) L 03/27/22 03:52 Phosphorus 3.50 mg/dL (2.5-4.5) 03/20/22 04:09 Magnesium 2.00 mg/dL (1.7-2.3) 03/20/22 04:09 Total Bilirubin 0.30 mg/dL (0.1-1.2) 03/10/22 03:57 AST 17 units/L (5-40) 03/10/22 03:57 ALT 18 units/L (7-56) 03/10/22 03:57 Alkaline Phosphatase 89 units/L (35-129) 03/10/22 03:57 Ammonia 14.0 umol/L (25-60) L 02/18/22 23:22 Troponin T < 0.010 ng/mL (0.00-0.029) 02/18/22 21:02 Total Protein 6.6 g/dL (6.3-8.2) 03/10/22 03:57 Albumin 1.9 g/dL (3.9-5) L 03/10/22 03:57 Albumin/Globulin Ratio 0.4 % 03/10/22 03:57 Urine Color Yellow (Yellow) 03/27/22 08:36 Urine Turbidity Cloudy (Clear) 03/27/22 08:36 Urine pH 7.0 (5.0-7.0) 02/18/22 Unknown Ur Specific [place] 1.015 (1.003-1.030) 02/18/22 Unknown Specific [place] (Man) 1.020 (1.003-1.030) 03/27/22 08:36 Urine Protein <15 mg/dl mg/dL (Negative) 02/18/22 Unknown Ur Protein (Man) 1+ mg/dL (Negative) 03/27/22 08:36 Urine Glucose (UA) Negative mg/dL (Negative) 02/18/22 Unknown Urine Ketones Negative mg/dL (Negative) 02/18/22 Unknown Ur Ketones (Man) Negative (Negative) 03/27/22 08:36 Urine Blood Trace (Negative) 02/18/22 Unknown Urine Nitrite Negative (Negative) 02/18/22 Unknown Ur Nitrite (Man) Negative (Negative) 03/27/22 08:36 Ur Reducing Substances Not Reportable 03/27/22 08:36 Urine Bilirubin Negative (Negative) 02/18/22 Unknown Urine Bilirubin (Man) Negative (Negative) 03/27/22 08:36 Urine Ictotest Not Reportable 03/27/22 08:36 Urine Urobilinogen < 2.0 mg/dL (<2.0) 02/18/22 Unknown Ur Leukocyte Esterase Negative (Negative) 02/18/22 Unknown Leukocyte Esterase (Man) Moderate (Negative) 03/27/22 08:36 Urine WBC (Auto) > 182.0 /HPF (0.0-6.0) H 03/27/22 08:36 Urine RBC (Auto) 9.0 /HPF (0.0-6.0) 03/27/22 08:36 U Epithel Cells (Auto) < 1.0 /HPF (0-13.0) 03/27/22 08:36 Urine RBC (Manual) 1+ (Negative) 03/27/22 08:36 Urine Mucus Few /HPF 03/27/22 08:36 Urine Yeast (Budding) 2+ /HPF 03/27/22 08:36 Urine Opiates Screen Negative 02/18/22 Unknown Urine Methadone Screen Negative 02/18/22 Unknown Ur Barbiturates Screen Negative 02/18/22 Unknown Ur Phencyclidine Scrn Negative 02/18/22 Unknown Ur Amphetamines Screen Negative 02/18/22 Unknown U Benzodiazepines Scrn Negative 02/18/22 Unknown Urine Cocaine Screen Negative 02/18/22 Unknown U Marijuana (THC) Screen Negative 02/18/22 Unknown Drugs of Abuse Note Disclamer 02/18/22 Unknown Plasma/Serum Alcohol < 0.01 % (0-0.07) 02/18/22 21:02 Summers/IV: Voiding Method Indwelling Catheter Active Medications - Current Medications Current Medications: Generic Name Dose Route Start Last Admin Trade Name Freq PRN Reason Stop Dose Admin Acetaminophen 650 mg 03/03/22 09:00 Acetaminophen 325 Mg/10.15 Ml Oral Liqd Unit Dose FEEDTUBE Q4H PRN Pain, Mild (1-3); TEMP > 100.4 Albuterol 2.5 mg 03/12/22 20:00 03/29/22 07:25 Albuterol 2.5 Mg/3 Ml Nebu IH 2.5 mg Q6HRT LAZARUS Administration Famotidine 20 mg 02/25/22 10:00 03/28/22 21:01 Famotidine 20 Mg Tab FEEDTUBE 20 mg BID LAZARUS Administration Heparin Sodium (Porcine) 5,000 unit 02/19/22 06:00 03/29/22 06:04 Heparin 5,000 Unit/1 Ml Vial SUB-Q 5,000 unit Q8HR LAZARUS Administration Ceftriaxone Sodium 1 gm in 50 mls @ 100 mls/hr 03/27/22 11:00 03/28/22 10:37 Rocephin/Ns 1 Gm/50 Ml IV 03/29/22 11:29 100 mls/hr Q24H LAZARUS Administration Protocol Levetiracetam 500 mg 02/25/22 22:00 03/28/22 21:03 Levetiracetam 500 Mg/5 Ml Oral Liqd FEEDTUBE 500 mg BID LAZARUS Administration Levothyroxine Sodium 25 mcg 02/26/22 06:00 03/29/22 06:04 Levothyroxine 25 Mcg Tab FEEDTUBE 25 mcg QAM@0600 LAZARUS Administration Magnesium Hydroxide 30 ml 02/19/22 02:02 Magnesium Hydroxide (Mom) Oral Liqd Udc PO Q4H PRN Constipation Midodrine 2.5 mg 03/19/22 12:00 03/28/22 16:50 Midodrine 2.5 Mg Tab FEEDTUBE 2.5 mg TID@0800,1200,1600 LAZARUS Administration Multi-Ingred Cream/Lotion/Oil/Oint 1 applic 02/24/22 15:05 Mineral Oil/Petrolatum, White Ophth Oint 3.5 Gm OU Q4HR PRN Dry Eye(s) Ondansetron HCl 4 mg 02/19/22 02:02 Ondansetron 4 Mg/2 Ml Inj IV Q8H PRN Nausea And Vomiting Pravastatin Sodium 40 mg 02/25/22 22:00 03/28/22 21:01 Pravastatin 40 Mg Tab FEEDTUBE 40 mg QHS LAZARUS Administration Senna/Docusate Sodium 1 tab 02/24/22 22:00 03/28/22 21:01 Sennosides/Docusate Sodium 8.6/50 Mg Tab FEEDTUBE 1 tab BID LAZARUS Administration Sodium Chloride 10 ml 02/19/22 10:00 03/28/22 21:01 Sodium Chloride 0.9% 10 Ml Flush Syringe IV 10 ml BID LAZARUS Administration Sodium Chloride 10 ml 02/19/22 02:02 03/03/22 14:21 Sodium Chloride 0.9% 10 Ml Flush Syringe IV 10 ml PRN PRN Administration LINE FLUSH Nutrition/Malnutrition Assess - Dietary Evaluation Nutrition/Malnutrition Findings: Nutrition Notes Start: 02/19/22 14:29 Freq: Status: Active Protocol: Document 03/28/22 16:01 IVAN (Rec: 03/28/22 16:17 IVAN [email or web address]) Nutrition Notes Initial or Follow up Reassessment Current Diagnosis Hypertension,Respiratory Failure,Hyperlipidemia Other Pertinent Diagnosis Asp pneu, acute encephalopathy , seizure d/o, partial blindness Current Diet TF - Vital AF 1.2 at 50ml/hr Labs/Tests Reviewed Pertinent Medications Reviewed Height 5 ft 3 in Weight 63.2 kg [place] Body Weight (kg) 56.36 BMI 24.7 Weight change and time frame Bed scale still not working Subjective/Other Information Pt remains on vent support; still awaiting decision on guardianship for trach/PEG placement. Pt continues to tolerate TF at goal rate. Last BM was 03/25 per RN verbal report. Pt receiving 100ml water flush q4h now. Per WOCN , sacral wound measuring 8.0 x 6.0 x 0.2; wound bed is 75% pink with 25% yellow slough. RN informed of intent to change TF formula to Promote. Percent of energy/protein needs met: 90% energy 100% pro Burn Absent Trauma Absent #1 Nutrition Diagnosis Inadequate oral intake Diagnosis Progress(for reassessment Continues documentation) Is patient on ventilator? Yes Is Patient Ambulatory and/or Out of Bed No REE-([facility]-confined to bed) [phone] Calculation Used for Recommendations [facility] Additional Notes Pro needs 1.2-2g/k-126g/ day Fluid needs 1ml/kcal Nutrition Intervention Nutrition Support: Change TF formula to Promote at 65ml/hr with 50ml water flush q4h. Kcal 1,560 Protein (gm) 98 Carbohydrates (gm) 203 Fat (gm) 41 Fluid (mL) 1,309 Fiber (gm) 0 Goal #1 TF tolerance Goal #2 TF to meet 75%-100% energy and pro needs Goal #3 Wound healing Follow-Up By: 03/31/22 Additional Comments F/U: TF formula change/ tolerance, BM <SILVIA BUCHANAN - Last Filed: 04/01/22 10:56> History Interval history: I saw and evaluated the patient. I agree with the findings and the plan of care as documented in the Nurse Practitioner's~note, with the following corrections and additions. Hospitalist Physical - Constitutional Vitals: Temp Pulse Resp BP Pulse Ox 97.9 F 71 14 121/68 97 04/01/22 07:09 04/01/22 07:51 04/01/22 07:51 04/01/22 07:43 04/01/22 07:43 HEART Score - HEART Score Troponin: Troponin T < 0.010 ng/mL (0.00-0.029) 02/18/22 21:02 Results - Labs CBC & Chem 7: 03/31/22 03:56 03/31/22 03:56 Labs: Laboratory Last Values WBC 9.7 K/mm3 (4.5-11.0) 03/31/22 03:56 RBC 3.08 M/mm3 (3.65-5.03) L 03/31/22 03:56 Hgb 9.5 gm/dl (11.8-15.2) L 03/31/22 03:56 Hct 30.1 % (35.5-45.6) L 03/31/22 03:56 MCV 98 fl (84-94) H 03/31/22 03:56 MCH 31 pg (28-32) 03/31/22 03:56 MCHC 32 % (32-34) 03/31/22 03:56 RDW 17.7 % (13.2-15.2) H 03/31/22 03:56 Plt Count 331 K/mm3 (140-440) 03/31/22 03:56 Lymph % (Auto) 7.5 % (13.4-35.0) L 03/28/22 04:06 Ray % (Auto) 10.5 % (0.0-7.3) H 03/28/22 04:06 Eos % (Auto) 0.9 % (0.0-4.3) 03/28/22 04:06 Baso % (Auto) 0.4 % (0.0-1.8) 03/28/22 04:06 Lymph # (Auto) 1.1 K/mm3 (1.2-5.4) L 03/28/22 04:06 Ray # (Auto) 1.5 K/mm3 (0.0-0.8) H 03/28/22 04:06 Eos # (Auto) 0.1 K/mm3 (0.0-0.4) 03/28/22 04:06 Baso # (Auto) 0.1 K/mm3 (0.0-0.1) 03/28/22 04:06 Add Manual Diff Complete 03/03/22 03:54 Total Counted 100 03/03/22 03:54 Seg Neutrophils % 80.7 % (40.0-70.0) H 03/28/22 04:06 Seg Neuts % (Manual) 95.0 % (40.0-70.0) H 03/03/22 03:54 Band Neutrophils % 0 % 03/03/22 03:54 Lymphocytes % (Manual) 3.0 % (13.4-35.0) L 03/03/22 03:54 Reactive Lymphs % (Man) 0 % 03/03/22 03:54 Monocytes % (Manual) 2.0 % (0.0-7.3) 03/03/22 03:54 Eosinophils % (Manual) 0 % (0.0-4.3) 03/03/22 03:54 Basophils % (Manual) 0 % (0.0-1.8) 03/03/22 03:54 Metamyelocytes % 0 % 03/03/22 03:54 Myelocytes % 0 % 03/03/22 03:54 Promyelocytes % 0 % 03/03/22 03:54 Blast Cells % 0 % 03/03/22 03:54 Nucleated RBC % Not Reportable 03/03/22 03:54 Seg Neutrophils # 11.4 K/mm3 (1.8-7.7) H 03/28/22 04:06 Seg Neutrophils # Man 18.5 K/mm3 (1.8-7.7) H 03/03/22 03:54 Band Neutrophils # 0.0 K/mm3 03/03/22 03:54 Lymphocytes # (Manual) 0.6 K/mm3 (1.2-5.4) L 03/03/22 03:54 Abs React Lymphs (Man) 0.0 K/mm3 03/03/22 03:54 Monocytes # (Manual) 0.4 K/mm3 (0.0-0.8) 03/03/22 03:54 Eosinophils # (Manual) 0.0 K/mm3 (0.0-0.4) 03/03/22 03:54 Basophils # (Manual) 0.0 K/mm3 (0.0-0.1) 03/03/22 03:54 Metamyelocytes # 0.0 K/mm3 03/03/22 03:54 Myelocytes # 0.0 K/mm3 03/03/22 03:54 Promyelocytes # 0.0 K/mm3 03/03/22 03:54 Blast Cells # 0.0 K/mm3 03/03/22 03:54 WBC Morphology Not Reportable 03/03/22 03:54 Hypersegmented Neuts Not Reportable 03/03/22 03:54 Hyposegmented Neuts Not Reportable 03/03/22 03:54 Hypogranular Neuts Not Reportable 03/03/22 03:54 Smudge Cells Not Reportable 03/03/22 03:54 Toxic Granulation Not Reportable 03/03/22 03:54 Toxic Vacuolation Not Reportable 03/03/22 03:54 Dohle Bodies Not Reportable 03/03/22 03:54 Pelger-Huet Anomaly Not Reportable 03/03/22 03:54 Lakshmi Rods Not Reportable 03/03/22 03:54 Platelet Estimate Consistent w auto 03/03/22 03:54 Clumped Platelets Not Reportable 03/03/22 03:54 Plt Clumps, EDTA Not Reportable 03/03/22 03:54 Large Platelets Not Reportable 03/03/22 03:54 Giant Platelets Not Reportable 03/03/22 03:54 Platelet Satelliting Not Reportable 03/03/22 03:54 Plt Morphology Comment Not Reportable 03/03/22 03:54 RBC Morphology Not Reportable 03/03/22 03:54 Dimorphic RBCs Not Reportable 03/03/22 03:54 Polychromasia Not Reportable 03/03/22 03:54 Hypochromasia Not Reportable 03/03/22 03:54 Poikilocytosis Not Reportable 03/03/22 03:54 Anisocytosis 1+ 03/03/22 03:54 Microcytosis Not Reportable 03/03/22 03:54 Macrocytosis Not Reportable 03/03/22 03:54 Spherocytes Not Reportable 03/03/22 03:54 Pappenheimer Bodies Not Reportable 03/03/22 03:54 Sickle Cells Not Reportable 03/03/22 03:54 Target Cells Not Reportable 03/03/22 03:54 Tear Drop Cells Not Reportable 03/03/22 03:54 Ovalocytes Not Reportable 03/03/22 03:54 Helmet Cells Not Reportable 03/03/22 03:54 [place] Bodies Not Reportable 03/03/22 03:54 [place] Rings Not Reportable 03/03/22 03:54 [place] Cells Not Reportable 03/03/22 03:54 Bite Cells Not Reportable 03/03/22 03:54 Crenated Cell Not Reportable 03/03/22 03:54 Elliptocytes Not Reportable 03/03/22 03:54 Acanthocytes (Spur) Not Reportable 03/03/22 03:54 Rouleaux Not Reportable 03/03/22 03:54 Hemoglobin C Crystals Not Reportable 03/03/22 03:54 Schistocytes Not Reportable 03/03/22 03:54 Malaria parasites Not Reportable 03/03/22 03:54 Cash Bodies Not Reportable 03/03/22 03:54 Hem Pathologist Commnt No 03/03/22 03:54 PT 16.2 Sec. (12.2-14.9) H 03/11/22 04:02 INR 1.16 (0.87-1.13) H 03/11/22 04:02 ABG pH 7.392 pH Units (7.350-7.450) 03/22/22 14:25 ABG pCO2 54.4 mm Hg 03/22/22 14:25 ABG pO2 150.5 mm Hg (80.0-90.0) H 03/22/22 14:25 ABG HCO3 32.4 mmol/L (20.0-26.0) H 03/22/22 14:25 ABG O2 Saturation 98.8 % (95.0-99.0) 03/22/22 14:25 ABG O2 Content 15.8 (0.0-44) 03/22/22 14:25 ABG Base Excess 6.2 mmol/L (-2.0-3.0) H 03/22/22 14:25 ABG Hemoglobin 11.4 gm/dl (14.0-18.0) L 03/22/22 14:25 ABG Carboxyhemoglobin 1.6 % (0.0-5.0) 03/22/22 14:25 ABG Methemoglobin 0.6 % (0.0-1.5) 03/22/22 14:25 Oxyhemoglobin 96.6 % (95.0-99.0) 03/22/22 14:25 FiO2 30 % 03/22/22 14:25 Sodium 135 mmol/L (137-145) L 03/31/22 03:56 Potassium 4.5 mmol/L (3.6-5.0) 03/31/22 03:56 Chloride 97.4 mmol/L (98-107) L 03/31/22 03:56 Carbon Dioxide 31 mmol/L (22-30) H 03/31/22 03:56 Anion Gap 11 mmol/L 03/31/22 03:56 BUN 18 mg/dL (9-20) 03/31/22 03:56 Creatinine 0.5 mg/dL (0.8-1.3) L 03/31/22 03:56 Estimated GFR > 60 ml/min 03/31/22 03:56 BUN/Creatinine Ratio 36 % 03/31/22 03:56 Glucose 102 mg/dL (75-100) H 03/31/22 03:56 POC Glucose 118 mg/dL (70-105) H 04/01/22 00:09 Lactic Acid 1.20 mmol/L (0.7-2.0) 02/18/22 21:02 Calcium 8.8 mg/dL (8.4-10.2) 03/31/22 03:56 Phosphorus 3.50 mg/dL (2.5-4.5) 03/20/22 04:09 Magnesium 2.00 mg/dL (1.7-2.3) 03/20/22 04:09 Total Bilirubin 0.30 mg/dL (0.1-1.2) 03/10/22 03:57 AST 17 units/L (5-40) 03/10/22 03:57 ALT 18 units/L (7-56) 03/10/22 03:57 Alkaline Phosphatase 89 units/L (35-129) 03/10/22 03:57 Ammonia 14.0 umol/L (25-60) L 02/18/22 23:22 Troponin T < 0.010 ng/mL (0.00-0.029) 02/18/22 21:02 Total Protein 6.6 g/dL (6.3-8.2) 03/10/22 03:57 Albumin 1.9 g/dL (3.9-5) L 03/10/22 03:57 Albumin/Globulin Ratio 0.4 % 03/10/22 03:57 Urine Color Yellow (Yellow) 03/27/22 08:36 Urine Turbidity Cloudy (Clear) 03/27/22 08:36 Urine pH 7.0 (5.0-7.0) 02/18/22 Unknown Ur Specific [place] 1.015 (1.003-1.030) 02/18/22 Unknown Specific [place] (Man) 1.020 (1.003-1.030) 03/27/22 08:36 Urine Protein <15 mg/dl mg/dL (Negative) 02/18/22 Unknown Ur Protein (Man) 1+ mg/dL (Negative) 03/27/22 08:36 Urine Glucose (UA) Negative mg/dL (Negative) 02/18/22 Unknown Urine Ketones Negative mg/dL (Negative) 02/18/22 Unknown Ur Ketones (Man) Negative (Negative) 03/27/22 08:36 Urine Blood Trace (Negative) 02/18/22 Unknown Urine Nitrite Negative (Negative) 02/18/22 Unknown Ur Nitrite (Man) Negative (Negative) 03/27/22 08:36 Ur Reducing Substances Not Reportable 03/27/22 08:36 Urine Bilirubin Negative (Negative) 02/18/22 Unknown Urine Bilirubin (Man) Negative (Negative) 03/27/22 08:36 Urine Ictotest Not Reportable 03/27/22 08:36 Urine Urobilinogen < 2.0 mg/dL (<2.0) 02/18/22 Unknown Ur Leukocyte Esterase Negative (Negative) 02/18/22 Unknown Leukocyte Esterase (Man) Moderate (Negative) 03/27/22 08:36 Urine WBC (Auto) > 182.0 /HPF (0.0-6.0) H 03/27/22 08:36 Urine RBC (Auto) 9.0 /HPF (0.0-6.0) 03/27/22 08:36 U Epithel Cells (Auto) < 1.0 /HPF (0-13.0) 03/27/22 08:36 Urine RBC (Manual) 1+ (Negative) 03/27/22 08:36 Urine Mucus Few /HPF 03/27/22 08:36 Urine Yeast (Budding) 2+ /HPF 03/27/22 08:36 Urine Opiates Screen Negative 02/18/22 Unknown Urine Methadone Screen Negative 02/18/22 Unknown Ur Barbiturates Screen Negative 02/18/22 Unknown Ur Phencyclidine Scrn Negative 02/18/22 Unknown Ur Amphetamines Screen Negative 02/18/22 Unknown U Benzodiazepines Scrn Negative 02/18/22 Unknown Urine Cocaine Screen Negative 02/18/22 Unknown U Marijuana (THC) Screen Negative 02/18/22 Unknown Drugs of Abuse Note Disclamer 02/18/22 Unknown Plasma/Serum Alcohol < 0.01 % (0-0.07) 02/18/22 21:02 Summers/IV: Voiding Method Indwelling Catheter Active Medications - Current Medications Current Medications: Generic Name Dose Route Start Last Admin Trade Name Freq PRN Reason Stop Dose Admin Acetaminophen 650 mg 03/03/22 09:00 Acetaminophen 325 Mg/10.15 Ml Oral Liqd Unit Dose FEEDTUBE Q4H PRN Pain, Mild (1-3); TEMP > 100.4 Albuterol 2.5 mg 03/12/22 20:00 04/01/22 07:50 Albuterol 2.5 Mg/3 Ml Nebu IH 2.5 mg Q6HRT LAZARUS Administration Famotidine 20 mg 02/25/22 10:00 04/01/22 09:20 Famotidine 20 Mg Tab FEEDTUBE 20 mg BID LAZARUS Administration Heparin Sodium (Porcine) 5,000 unit 02/19/22 06:00 04/01/22 05:22 Heparin 5,000 Unit/1 Ml Vial SUB-Q 5,000 unit Q8HR LAZARUS Administration Levetiracetam 500 mg 02/25/22 22:00 04/01/22 09:20 Levetiracetam 500 Mg/5 Ml Oral Liqd FEEDTUBE 500 mg BID LAZARUS Administration Levothyroxine Sodium 25 mcg 02/26/22 06:00 04/01/22 05:22 Levothyroxine 25 Mcg Tab FEEDTUBE 25 mcg QAM@0600 LAZARUS Administration Magnesium Hydroxide 30 ml 02/19/22 02:02 Magnesium Hydroxide (Mom) Oral Liqd Udc PO Q4H PRN Constipation Midodrine 2.5 mg 03/19/22 12:00 04/01/22 09:20 Midodrine 2.5 Mg Tab FEEDTUBE 2.5 mg TID@0800,1200,1600 LAZARUS Administration Multi-Ingred Cream/Lotion/Oil/Oint 1 applic 02/24/22 15:05 Mineral Oil/Petrolatum, White Ophth Oint 3.5 Gm OU Q4HR PRN Dry Eye(s) Ondansetron HCl 4 mg 02/19/22 02:02 Ondansetron 4 Mg/2 Ml Inj IV Q8H PRN Nausea And Vomiting Pravastatin Sodium 40 mg 02/25/22 22:00 03/31/22 21:01 Pravastatin 40 Mg Tab FEEDTUBE 40 mg QHS LAZARUS Administration Senna/Docusate Sodium 1 tab 02/24/22 22:00 03/31/22 23:35 Sennosides/Docusate Sodium 8.6/50 Mg Tab FEEDTUBE 1 tab BID LAZARUS Administration Sodium Chloride 10 ml 02/19/22 10:00 04/01/22 09:20 Sodium Chloride 0.9% 10 Ml Flush Syringe IV 10 ml BID LAZARUS Administration Sodium Chloride 10 ml 02/19/22 02:02 03/03/22 14:21 Sodium Chloride 0.9% 10 Ml Flush Syringe IV 10 ml PRN PRN Administration LINE FLUSH Nutrition/Malnutrition Assess - Dietary Evaluation Nutrition/Malnutrition Findings: Nutrition Notes Start: 02/19/22 14:29 Freq: Status: Active Protocol: Document 03/31/22 14:18 [facility] (Rec: 03/31/22 14:23 [facility] [id number]) Nutrition Notes Initial or Follow up Reassessment Current Diagnosis Hypertension,Respiratory Failure,Hyperlipidemia Other Pertinent Diagnosis Asp pneu, acute encephalopathy , seizure d/o, partial blindness Current Diet TF - Promote at 65ml/hr Labs/Tests Na 135 CO2 - 31 Pertinent Medications Reviewed Height 5 ft 3 in Weight 63.2 kg [place] Body Weight (kg) 56.36 BMI 24.7 Subjective/Other Information Pt remains on vent support; still awaiting decision on guardianship for trach/PEG placement. Observed Promote infusing at 50ml/hr; RN informed of goal rate. BM x 1 on yesterday. Percent of energy/protein needs met: 75% energy 99% pro Burn Absent Trauma Absent #1 Nutrition Diagnosis Inadequate oral intake Diagnosis Progress(for reassessment Continues documentation) Is patient on ventilator? Yes Is Patient Ambulatory and/or Out of Bed No REE-([facility]-confined to bed) [phone] Calculation Used for Recommendations [facility] Additional Notes Pro needs 1.2-2g/k-126g/ day Fluid needs 1ml/kcal Nutrition Intervention Nutrition Support: Continue Promote to goal rate of 65ml/hr. Provide 50ml water flush q4h. Kcal 1,560 Protein (gm) 98 Carbohydrates (gm) 203 Fat (gm) 41 Fluid (mL) 1,309 Fiber (gm) 0 Goal #1 TF tolerance Goal #2 TF to meet 75%-100% energy and pro needs Goal #3 Wound healing Follow-Up By: 04/04/22 Additional Comments F/U: TF goal rate/tolerance
--- NOTE | 2022-03-29 10:55 | Progress Note ---
Assessment and Plan 61 y/o male with abnormal CT of chest. 03/29/22: Day 33 of intubation. WC now normal. No fever. Hard stop date on the abx. Awaiting Hospital and Court about guardianship. 03/28/22: Day 32 of intubation. WBC better. No fever. Still awaiting hospital and courts. 03/27/22: Day 31 of intubation. Given increase in WBC will treat empirically with Rocephin. Follow up urine cultures. CXR appears stable, await official read. Guarded prognosis. 03/26/22: Day 30 of Intubation. Daily PSV trials. no new recommendations. 03/25/22: Day 29 of intubation. RT to try PSV this am, hesistant given low sats but improved with suctioning. Still no word from the hospital in regards to guardianship. I do not feel comfortable with attempting extubation again on this patient given his quick failure and difficult re-intubation. 03/24/22: Day 28 of intubation. reviewed my partners notes from the weekend. Glad patient is tolerating PSV however do not see conventional extubation in the near future given patient's mental status and how fast he failed extubation (within an hour) on his first attempt. Patient was also a difficult re-intu bation. Follow up with CM and hospital tomorrow. Continue supportive measures. 03/21/22: Day 25 of intubation. No new updates from the hospital about guardianship. Wound care saw on yesterday. Continue daily PSV trials as tolerated. Guarded prognosis. 03/20/22: Day 24 of intubation. No new recommendations. Still awaiting hospital update in regards to guardianship so that decisions can be made. Continue supportive measures. Wound care to see today. 03/19/22: Day 23 of intubation. Prognosis is still guarded. Will discuss with RT about attempts at daily PSV trials. Per notes, Wound care to see , wound was present on admission. 03/18/22: Day 22 of intubation. Prognosis remains guarded. Not able to obtain trach and peg with consent. Continue daily PSV trials as tolerated. 03/17/22: Day 21 of intubation. Still awaiting some form of decision maker for trach and peg placement. Guarded prognosis. 03/16/22: Day 20 of intubation. BP stable. Continue midodrine. Awaiting emergency guardianship from Court to obtain consent for trach and peg. Guarded prognosis. 03/15/22: Day 19 of intubation. BP now is marginal more regularly. Will give an additional liter bolus of LR now. May need to increase Midodrine back to 5. Needs trach in order to be safely weaned from ventilator. Will need peg tube placement in addition to trach. Prognosis remains guarded. Continue PSV trials as tolerated. 03/14/22: Day 18 of intubation. Vitals stable and mental status is unchanged. Still in need of tracheostomy as well as peg tube placement. No guardian appointed yet. 03/13/22: Day 17 of intubation. Agree with bolus and restarting of midodrine. was stopped previously secondary to bradycardia. If patient spikes temp, will culture blood and urine and repeat CXR. Continue daily PSV trials to assess ability for vent liberation. Continues to need trach however no family/guardian to provide consent. Guarded prognosis. 03/12/22: Day 16 of intubation. Following up with hospital in regards to guardian. Continue supportive measures. Guarded prognosis. 03/11/22: hospital now attempting to find emergency guardian to have consent for trach as ethics committee cannot comment on this matter so unable to help. Until then will remain intubated orally. Failed PSV yesterday, will continue to attempt on daily basis. Unfortunate situation. Guarded prognosis. 03/10/22: Today nuñez day 14 of intubation. Given patient's mental state and increased risk of aspiration, the likelihood of conventional extubation with success is very very slim and the patient has already failed this in an extremely short period of time (less than 1 hour). I suspect that he will fail again if tried and could create more difficult reintubation as he was a difficult reintubation on his failed extubation attempt. To prevent further decline and potential complications of prolonged mechanical ventilation, will discuss with ethics and the hospital to use 2 physician consent to obtain trach and peg for this patient with hopes of liberating him from the mechanical ventilator. he has very minimal vent requirements but as been stated several times above, he continues to aspirate and failed conventional extubation almost immediately. Will consult surgery today. Dr. Mancia is prepared to sign consent as well as myself. Hopeful surgery will be on board with this. Continue supportive care for now. Attempt daily PSV trials. 03/07/22: Daily PSV trials as tolerated. Still no one to step up as adult friend. patient has now been intubated since 02/24/22 and is approaching the time period in which prolonged mechanical ventilation could lead to significant complications that could be detrimental to health (infection, stenosis, malacia etc). Will discuss again with ethics but in regards to medical necessity, may need to consider two physician consent if no one is able to claim responsibility for this patient. He is a full code and we must work in his best interest to prevent further harm. Continue supportive measures but he is not a candidate for conventional extubation given his mental state, despite being on minimal support. He has already failed this before. 03/06/22: PSV trials daily. Will discuss with RT. Spoke with ethics. Plan in place and awaiting on news from [facility] and [facility]. Continue supportive measures. Patient has been intubated since 02/24/22 and is approaching the 2 week shadi of intubation will need to make decisions soon to avoid unnecessary complications related to prolonged intubation. 03/05/22: Will follow up with ethics today. Awaiting some guidance about consent for trach and peg. This is a medical necessity to liberate patient from mechanical ventilation. Continue supportive measures. Ok with daily PSV trials 03/04/22: Follow up with ethics later this afternoon. Spoke with RT and patient does have cuff leak, will stop steroids. Stopping midodrine as BP is stable and bradycardia likely from this. 03/03/22: Await ethics eval. CM has spoken with state as well. Daily cuff leaks. Will start to wean steroids tomorrow. Midodrine can cause bradycardia. If continues or worsens will stop. Guarded prognosis. 03/02/22: Continue supportive measures. Await ethics consult before surgery consult for trach and peg. no further need for fluid boluses. Will continue stress dose steroids but have daily air leak checks by RT. Still will need trach, will not attempt extubation again. Guarded prognosis. 03/01/22: Patient is having increased urine output. This could be the cause of new onset hypotension. Will bolus 2 more liters of LR now and reassess. If this continues may need to work up for SIADH including repeat head CT. Follow up ethics review of case. Will need trach for ventilator liberation. Overall prognosis remains guarded. 02/28/22: Will obtain CT neck, noncontrast to look for airway edema or other possible etiologies for failure. Needs ethics consult as given patient's mental state, inability to clear secretions appropriately, will need trach now that he has failed extubation. However he has no family and no POA so no one to give consent. Continue supportive measures. Guarded prognosis. 02/27/22: Continue improvement of oxygenation. Will drop PEEP down today with g oal of being at 6 by in the morning. Will repeat CT scan to confirm improvement as no endobronchial lesion was seen, but also to make sure no parenchymal mass. There was no evidence of extrinsic compression during bronch. Likely extubation tomorrow post CT. 02/26/22: Repeat CXR now. Wean Vent as tolerated. Hopeful extubation soon. Mucous removed. NO ENDOBRONCHIAL LESION/MASS 02/25/22: Bronch tentatively planned for tomorrow with therapeutic scope. Awaiting GI lab to give a time. NPO after midnight. Continue high PEEP 02/24/22: WIll attempt to bronch tomorrow morning. NPO after midnight. Just received word from GI lab they are not able to do bronch tomorrow. Cancel NPO order. Continue to feed patient. Repeat ABG in AM along with CXR. 02/21/22: No new pulm recs for today. Please obtain repeat CXR likely on Thursday. If patient happens to get worse, likely not a candidate for bipap given his weak cough and mental state and inability to communicate. If worsens and requires intubation, will bronch then under emergent circumstances if no POA or family is able to be located. Continue CPT. Will discuss with RT about NT suctioning. 02/20/22: Saw speech while on the floor. Would like patient to be NPO now. Discussed with nurse on floor and with IMS. Same recs pulm way as yesterday. Would benefit from bronch if able to get consent as this is not emergent. Continue CPT and q shift NT suctioning. Reviewed admission in the past and of note, patient was recently admitted last month and had a CXR done on the 29 of January that was normal. Given this patient's medical history and the history that I obtained from the nursing staff that at the senior care he was eating solid foods, I suspect that this is aspiration, possibly of a foreign body (most likely food) with atelectasis of the right lower lobe. It is highly unlikely that a mass evolved in size in less than a months time and patient, besides age, has no real risk factors for lung carcinoma. Discussed with the nurse and unfortunately there is no identifiable person that is able to give consent. Bronchoscopy is needed in the case to evaluate to see if lung mass is there vs foreign body, but at this time not able to do. In the meanwhile will recommend the following. 1. Will order CPT with neb therapy 3x daily 2. Suggest maybe NT suctioning q shift. May use nasal trumpet, however do not leave this device in the patient 3. Aspiration precautions 4. Consider speech eval to assess swallowing. Will continue to follow. CCT 31 minutes. Subjective Date of service: 03/29/22 Principal diagnosis: f/u Acute respiratory failure Interval history: No acute events. WC normal now. Objective Vital Signs - 12hr 03/28/22 03/28/22 03/28/22 23:00 23:37 23:38 Temperature 99.4 F Pulse Rate 75 74 75 Pulse Rate [ Anterior Bilateral Throughout] Pulse Rate [ Bilateral Throughout] Pulse Rate [ 75 From Monitor] Respiratory 13 12 12 Rate Respiratory Rate [Anterior Bilateral Throughout] Respiratory Rate [Bilateral Throughout] Blood Pressure 98/45 98/45 O2 Sat by Pulse 99 98 95 Oximetry 03/28/22 03/29/22 03/29/22 23:55 00:00 01:00 Temperature Pulse Rate 81 74 74 Pulse Rate [ Anterior Bilateral Throughout] Pulse Rate [ Bilateral Throughout] Pulse Rate [ From Monitor] Respiratory 15 12 Rate Respiratory Rate [Anterior Bilateral Throughout] Respiratory Rate [Bilateral Throughout] Blood Pressure 110/73 104/51 100/49 O2 Sat by Pulse 99 98 98 Oximetry 03/29/22 03/29/22 03/29/22 02:00 02:32 02:36 Temperature Pulse Rate 72 77 Pulse Rate [ 78 Anterior Bilateral Throughout] Pulse Rate [ 77 Bilateral Throughout] Pulse Rate [ From Monitor] Respiratory 13 Rate Respiratory 19 Rate [Anterior Bilateral Throughout] Respiratory 18 Rate [Bilateral Throughout] Blood Pressure 104/51 105/61 O2 Sat by Pulse 98 100 Oximetry 03/29/22 03/29/22 03/29/22 03:00 03:13 03:14 Temperature Pulse Rate 83 86 Pulse Rate [ Anterior Bilateral Throughout] Pulse Rate [ Bilateral Throughout] Pulse Rate [ 85 From Monitor] Respiratory 18 20 Rate Respiratory Rate [Anterior Bilateral Throughout] Respiratory Rate [Bilateral Throughout] Blood Pressure 112/75 O2 Sat by Pulse 100 95 Oximetry 03/29/22 03/29/22 03/29/22 04:00 04:29 05:00 Temperature 98.6 F 97.4 F L Pulse Rate 88 78 Pulse Rate [ Anterior Bilateral Throughout] Pulse Rate [ Bilateral Throughout] Pulse Rate [ From Monitor] Respiratory 15 14 Rate Respiratory Rate [Anterior Bilateral Throughout] Respiratory Rate [Bilateral Throughout] Blood Pressure 100/67 91/61 O2 Sat by Pulse 98 98 Oximetry 03/29/22 03/29/22 03/29/22 06:00 07:00 07:25 Temperature Pulse Rate 70 69 87 Pulse Rate [ 84 Anterior Bilateral Throughout] Pulse Rate [ Bilateral Throughout] Pulse Rate [ From Monitor] Respiratory 14 14 Rate Respiratory 18 Rate [Anterior Bilateral Throughout] Respiratory Rate [Bilateral Throughout] Blood Pressure 91/52 91/52 104/55 O2 Sat by Pulse 100 98 98 Oximetry 03/29/22 03/29/22 03/29/22 07:52 07:53 08:00 Temperature 98.3 F Pulse Rate 85 83 Pulse Rate [ Anterior Bilateral Throughout] Pulse Rate [ Bilateral Throughout] Pulse Rate [ 86 From Monitor] Respiratory 15 19 Rate Respiratory Rate [Anterior Bilateral Throughout] Respiratory Rate [Bilateral Throughout] Blood Pressure 104/55 O2 Sat by Pulse 100 98 Oximetry 03/29/22 03/29/22 03/29/22 09:00 09:35 10:00 Temperature Pulse Rate 80 89 86 Pulse Rate [ Anterior Bilateral Throughout] Pulse Rate [ Bilateral Throughout] Pulse Rate [ From Monitor] Respiratory 15 21 21 Rate Respiratory Rate [Anterior Bilateral Throughout] Respiratory Rate [Bilateral Throughout] Blood Pressure 95/47 95/47 117/60 O2 Sat by Pulse 95 93 90 Oximetry Constitutional: alert, other (critically ill on ventilator) Eyes: non-icteric ENT: oropharynx moist Neck: supple Effort: normal Ascultation: Bilateral: diminished breath sounds, rhonchi Cardiovascular: regular rate and rhythm (no mrg) Gastrointestinal: normoactive bowel sounds, soft, non-tender (on o2 vest in place), non-distended Integumentary: normal Extremities: no cyanosis, no edema Neurologic: other (awake) Psychiatric: other (unable to assess) CBC and BMP: 03/29/22 04:22 03/27/22 03:52 ABG, PT/INR, D-dimer: ABG ABG pH 7.392 pH Units (7.350-7.450) 03/22/22 14:25 ABG pCO2 54.4 mm Hg 03/22/22 14:25 ABG pO2 150.5 mm Hg (80.0-90.0) H 03/22/22 14:25 ABG O2 Saturation 98.8 % (95.0-99.0) 03/22/22 14:25 PT/INR, D-dimer PT 16.2 Sec. (12.2-14.9) H 03/11/22 04:02 INR 1.16 (0.87-1.13) H 03/11/22 04:02 Abnormal lab findings: Abnormal Labs 02/18/22 02/18/22 02/18/22 19:34 21:02 21:02 WBC RBC Hgb Hct MCV 101 H MCH 34 H MCHC RDW 16.1 H Lymph % (Auto) [place] % (Auto) 12.4 H Lymph # (Auto) [place] # (Auto) 1.2 H Seg Neutrophils % 73.0 H Seg Neuts % (Manual) Lymphocytes % (Manual) Seg Neutrophils # Seg Neutrophils # Man Lymphocytes # (Manual) PT 16.9 H INR 1.20 H ABG pH ABG pO2 ABG HCO3 ABG O2 Saturation ABG Base Excess ABG Hemoglobin Oxyhemoglobin Sodium Potassium Chloride Carbon Dioxide BUN Creatinine Glucose POC Glucose 116 H Calcium Phosphorus AST ALT Ammonia Albumin Urine WBC (Auto) 02/18/22 02/18/22 02/18/22 21:02 22:45 23:22 WBC RBC Hgb Hct MCV MCH MCHC RDW Lymph % (Auto) [place] % (Auto) Lymph # (Auto) [place] # (Auto) Seg Neutrophils % Seg Neuts % (Manual) Lymphocytes % (Manual) Seg Neutrophils # Seg Neutrophils # Man Lymphocytes # (Manual) PT INR ABG pH ABG pO2 55.6 L ABG HCO3 28.4 H ABG O2 Saturation 91.5 L ABG Base Excess 3.8 H ABG Hemoglobin 13.2 L Oxyhemoglobin 89.6 L Sodium Potassium 5.1 H Chloride Carbon Dioxide BUN Creatinine Glucose 102 H POC Glucose Calcium Phosphorus AST 48 H ALT 64 H Ammonia 14.0 L Albumin 2.7 L Urine WBC (Auto) 02/20/22 02/20/22 02/23/22 04:59 04:59 06:29 WBC 11.4 H RBC Hgb Hct MCV 103 H MCH 33 H MCHC RDW 16.5 H Lymph % (Auto) 5.5 L [place] % (Auto) 12.1 H Lymph # (Auto) 0.6 L [place] # (Auto) 1.4 H Seg Neutrophils % 81.4 H Seg Neuts % (Manual) Lymphocytes % (Manual) Seg Neutrophils # 9.2 H Seg Neutrophils # Man Lymphocytes # (Manual) PT INR ABG pH ABG pO2 ABG HCO3 ABG O2 Saturation ABG Base Excess ABG Hemoglobin Oxyhemoglobin Sodium Potassium Chloride Carbon Dioxide BUN Creatinine Glucose POC Glucose 113 H Calcium 8.2 L Phosphorus AST ALT Ammonia Albumin Urine WBC (Auto) 02/23/22 02/23/22 02/24/22 11:22 16:10 00:02 WBC RBC Hgb Hct MCV MCH MCHC RDW Lymph % (Auto) [place] % (Auto) Lymph # (Auto) [place] # (Auto) Seg Neutrophils % Seg Neuts % (Manual) Lymphocytes % (Manual) Seg Neutrophils # Seg Neutrophils # Man Lymphocytes # (Manual) PT INR ABG pH ABG pO2 ABG HCO3 ABG O2 Saturation ABG Base Excess ABG Hemoglobin Oxyhemoglobin Sodium Potassium Chloride Carbon Dioxide BUN Creatinine Glucose POC Glucose 108 H 115 H 109 H Calcium Phosphorus AST ALT Ammonia Albumin Urine WBC (Auto) 02/24/22 02/24/22 02/24/22 11:05 11:05 13:20 WBC RBC 3.55 L Hgb Hct MCV 100 H MCH 34 H MCHC RDW 15.6 H Lymph % (Auto) [place] % (Auto) Lymph # (Auto) [place] # (Auto) Seg Neutrophils % Seg Neuts % (Manual) Lymphocytes % (Manual) Seg Neutrophils # Seg Neutrophils # Man Lymphocytes # (Manual) PT INR ABG pH ABG pO2 ABG HCO3 ABG O2 Saturation ABG Base Excess ABG Hemoglobin Oxyhemoglobin Sodium 146 H Potassium 3.2 L D Chloride 108.4 H Carbon Dioxide BUN Creatinine 0.5 L Glucose POC Glucose 111 H Calcium 7.9 L Phosphorus 2.20 L AST ALT Ammonia Albumin Urine WBC (Auto) 02/24/22 02/24/22 02/24/22 16:30 17:03 20:25 WBC RBC Hgb Hct MCV MCH MCHC RDW Lymph % (Auto) [place] % (Auto) Lymph # (Auto) [place] # (Auto) Seg Neutrophils % Seg Neuts % (Manual) Lymphocytes % (Manual) Seg Neutrophils # Seg Neutrophils # Man Lymphocytes # (Manual) PT INR ABG pH 7.319 L ABG pO2 65.3 L ABG HCO3 31.3 H ABG O2 Saturation 92.2 L ABG Base Excess 3.8 H ABG Hemoglobin 12.0 L Oxyhemoglobin 90.3 L Sodium Potassium Chloride 107.9 H Carbon Dioxide BUN 8 L Creatinine 0.4 L Glucose POC Glucose 108 H Calcium 7.6 L Phosphorus 4.60 H D AST ALT Ammonia Albumin Urine WBC (Auto) 02/25/22 02/25/22 02/25/22 04:12 04:12 05:05 WBC RBC 3.07 L Hgb 10.2 L Hct 31.5 L MCV 103 H MCH 33 H MCHC RDW 15.6 H Lymph % (Auto) [place] % (Auto) Lymph # (Auto) [place] # (Auto) Seg Neutrophils % Seg Neuts % (Manual) Lymphocytes % (Manual) Seg Neutrophils # Seg Neutrophils # Man Lymphocytes # (Manual) PT INR ABG pH ABG pO2 ABG HCO3 32.5 H ABG O2 Saturation ABG Base Excess 5.6 H ABG Hemoglobin 10.8 L Oxyhemoglobin 94.8 L Sodium Potassium 3.5 L Chloride 107.7 H Carbon Dioxide BUN Creatinine 0.5 L Glucose POC Glucose Calcium 7.0 L Phosphorus AST ALT Ammonia Albumin Urine WBC (Auto) 02/25/22 02/25/22 02/26/22 12:05 18:33 00:07 WBC RBC Hgb Hct MCV MCH MCHC RDW Lymph % (Auto) [place] % (Auto) Lymph # (Auto) [place] # (Auto) Seg Neutrophils % Seg Neuts % (Manual) Lymphocytes % (Manual) Seg Neutrophils # Seg Neutrophils # Man Lymphocytes # (Manual) PT INR ABG pH ABG pO2 ABG HCO3 ABG O2 Saturation ABG Base Excess ABG Hemoglobin Oxyhemoglobin Sodium Potassium Chloride Carbon Dioxide BUN Creatinine Glucose POC Glucose 127 H 125 H 114 H Calcium Phosphorus AST ALT Ammonia Albumin Urine WBC (Auto) 02/26/22 02/26/22 02/26/22 03:30 04:42 11:34 WBC RBC Hgb Hct MCV MCH MCHC RDW Lymph % (Auto) [place] % (Auto) Lymph # (Auto) [place] # (Auto) Seg Neutrophils % Seg Neuts % (Manual) Lymphocytes % (Manual) Seg Neutrophils # Seg Neutrophils # Man Lymphocytes # (Manual) PT INR ABG pH ABG pO2 143.2 H ABG HCO3 33.2 H ABG O2 Saturation ABG Base Excess 6.5 H ABG Hemoglobin 9.4 L Oxyhemoglobin Sodium Potassium Chloride Carbon Dioxide 32 H BUN Creatinine 0.7 L Glucose POC Glucose 114 H Calcium 8.0 L Phosphorus AST ALT Ammonia Albumin Urine WBC (Auto) 02/26/22 02/26/22 02/27/22 18:17 23:37 04:19 WBC 13.7 H RBC 2.78 L Hgb 9.3 L Hct 28.5 L MCV 103 H MCH 33 H MCHC RDW 16.3 H Lymph % (Auto) [place] % (Auto) Lymph # (Auto) [place] # (Auto) Seg Neutrophils % Seg Neuts % (Manual) Lymphocytes % (Manual) Seg Neutrophils # Seg Neutrophils # Man Lymphocytes # (Manual) PT INR ABG pH ABG pO2 ABG HCO3 ABG O2 Saturation ABG Base Excess ABG Hemoglobin Oxyhemoglobin Sodium Potassium Chloride Carbon Dioxide BUN Creatinine Glucose POC Glucose 111 H 117 H Calcium Phosphorus AST ALT Ammonia Albumin Urine WBC (Auto) 02/27/22 02/27/22 02/27/22 04:19 04:35 05:27 WBC RBC Hgb Hct MCV MCH MCHC RDW Lymph % (Auto) [place] % (Auto) Lymph # (Auto) [place] # (Auto) Seg Neutrophils % Seg Neuts % (Manual) Lymphocytes % (Manual) Seg Neutrophils # Seg Neutrophils # Man Lymphocytes # (Manual) PT INR ABG pH ABG pO2 96.3 H ABG HCO3 34.9 H ABG O2 Saturation ABG Base Excess 8.1 H ABG Hemoglobin Oxyhemoglobin Sodium Potassium Chloride Carbon Dioxide 31 H BUN Creatinine 0.6 L Glucose 107 H POC Glucose 133 H Calcium 7.8 L Phosphorus AST ALT Ammonia Albumin Urine WBC (Auto) 02/27/22 02/27/22 02/28/22 11:15 23:35 03:38 WBC 13.3 H RBC 3.05 L Hgb 10.2 L Hct 30.7 L MCV 101 H MCH 33 H MCHC RDW 16.1 H Lymph % (Auto) [place] % (Auto) Lymph # (Auto) [place] # (Auto) Seg Neutrophils % Seg Neuts % (Manual) Lymphocytes % (Manual) Seg Neutrophils # Seg Neutrophils # Man Lymphocytes # (Manual) PT INR ABG pH ABG pO2 ABG HCO3 ABG O2 Saturation ABG Base Excess ABG Hemoglobin Oxyhemoglobin Sodium Potassium Chloride Carbon Dioxide BUN Creatinine Glucose POC Glucose 129 H 122 H Calcium Phosphorus AST ALT Ammonia Albumin Urine WBC (Auto) 02/28/22 02/28/22 02/28/22 04:50 05:30 09:30 WBC RBC Hgb Hct MCV MCH MCHC RDW Lymph % (Auto) [place] % (Auto) Lymph # (Auto) [place] # (Auto) Seg Neutrophils % Seg Neuts % (Manual) Lymphocytes % (Manual) Seg Neutrophils # Seg Neutrophils # Man Lymphocytes # (Manual) PT INR ABG pH 7.451 H 7.488 H ABG pO2 77.0 L ABG HCO3 37.1 H 34.6 H ABG O2 Saturation ABG Base Excess 11.5 H 10.1 H ABG Hemoglobin 10.1 L 10.0 L Oxyhemoglobin Sodium Potassium Chloride Carbon Dioxide BUN Creatinine Glucose POC Glucose 121 H Calcium Phosphorus AST ALT Ammonia Albumin Urine WBC (Auto) 02/28/22 02/28/22 03/01/22 11:36 23:07 04:27 WBC 12.5 H RBC 2.85 L Hgb 9.5 L Hct 28.6 L MCV 101 H MCH 33 H MCHC RDW 15.7 H Lymph % (Auto) [place] % (Auto) Lymph # (Auto) [place] # (Auto) Seg Neutrophils % Seg Neuts % (Manual) Lymphocytes % (Manual) Seg Neutrophils # Seg Neutrophils # Man Lymphocytes # (Manual) PT INR ABG pH ABG pO2 ABG HCO3 ABG O2 Saturation ABG Base Excess ABG Hemoglobin Oxyhemoglobin Sodium Potassium Chloride Carbon Dioxide BUN Creatinine Glucose POC Glucose 112 H 107 H Calcium Phosphorus AST ALT Ammonia Albumin Urine WBC (Auto) 03/01/22 03/01/22 03/01/22 04:27 05:05 11:29 WBC RBC Hgb Hct MCV MCH MCHC RDW Lymph % (Auto) [place] % (Auto) Lymph # (Auto) [place] # (Auto) Seg Neutrophils % Seg Neuts % (Manual) Lymphocytes % (Manual) Seg Neutrophils # Seg Neutrophils # Man Lymphocytes # (Manual) PT INR ABG pH ABG pO2 ABG HCO3 ABG O2 Saturation ABG Base Excess ABG Hemoglobin Oxyhemoglobin Sodium 147 H D Potassium Chloride Carbon Dioxide 34 H BUN Creatinine 0.6 L Glucose 128 H POC Glucose 119 H 121 H Calcium 7.9 L Phosphorus AST ALT Ammonia Albumin Urine WBC (Auto) 03/01/22 03/01/22 03/02/22 16:15 23:57 05:18 WBC RBC Hgb Hct MCV MCH MCHC RDW Lymph % (Auto) [place] % (Auto) Lymph # (Auto) [place] # (Auto) Seg Neutrophils % Seg Neuts % (Manual) Lymphocytes % (Manual) Seg Neutrophils # Seg Neutrophils # Man Lymphocytes # (Manual) PT INR ABG pH ABG pO2 110.5 H ABG HCO3 33.0 H ABG O2 Saturation ABG Base Excess 7.4 H ABG Hemoglobin 8.6 L Oxyhemoglobin Sodium Potassium Chloride Carbon Dioxide BUN Creatinine Glucose POC Glucose 134 H 140 H Calcium Phosphorus AST ALT Ammonia Albumin Urine WBC (Auto) 03/02/22 03/02/22 03/02/22 05:53 09:04 09:04 WBC 15.0 H RBC 3.00 L Hgb 9.7 L Hct 30.7 L MCV 102 H MCH MCHC RDW 16.6 H Lymph % (Auto) [place] % (Auto) Lymph # (Auto) [place] # (Auto) Seg Neutrophils % Seg Neuts % (Manual) Lymphocytes % (Manual) Seg Neutrophils # Seg Neutrophils # Man Lymphocytes # (Manual) PT INR ABG pH ABG pO2 ABG HCO3 ABG O2 Saturation ABG Base Excess ABG Hemoglobin Oxyhemoglobin Sodium Potassium Chloride Carbon Dioxide 31 H BUN Creatinine 0.6 L Glucose 157 H POC Glucose 158 H Calcium 7.9 L Phosphorus AST ALT Ammonia Albumin Urine WBC (Auto) 03/02/22 03/02/22 03/02/22 11:36 16:25 23:17 WBC RBC Hgb Hct MCV MCH MCHC RDW Lymph % (Auto) [place] % (Auto) Lymph # (Auto) [place] # (Auto) Seg Neutrophils % Seg Neuts % (Manual) Lymphocytes % (Manual) Seg Neutrophils # Seg Neutrophils # Man Lymphocytes # (Manual) PT INR ABG pH ABG pO2 ABG HCO3 ABG O2 Saturation ABG Base Excess ABG Hemoglobin Oxyhemoglobin Sodium Potassium Chloride Carbon Dioxide BUN Creatinine Glucose POC Glucose 160 H 132 H 157 H Calcium Phosphorus AST ALT Ammonia Albumin Urine WBC (Auto) 03/03/22 03/03/22 03/03/22 03:54 03:54 05:27 WBC 19.5 H RBC 2.79 L Hgb 9.0 L Hct 28.6 L MCV 102 H MCH MCHC RDW 16.2 H Lymph % (Auto) [place] % (Auto) Lymph # (Auto) [place] # (Auto) Seg Neutrophils % Seg Neuts % (Manual) 95.0 H Lymphocytes % (Manual) 3.0 L Seg Neutrophils # Seg Neutrophils # Man 18.5 H Lymphocytes # (Manual) 0.6 L PT INR ABG pH ABG pO2 ABG HCO3 ABG O2 Saturation ABG Base Excess ABG Hemoglobin Oxyhemoglobin Sodium Potassium Chloride Carbon Dioxide BUN Creatinine 0.6 L Glucose 130 H POC Glucose 149 H Calcium 8.1 L Phosphorus AST ALT Ammonia Albumin Urine WBC (Auto) 03/03/22 03/03/22 03/04/22 11:13 17:30 00:02 WBC RBC Hgb Hct MCV MCH MCHC RDW Lymph % (Auto) [place] % (Auto) Lymph # (Auto) [place] # (Auto) Seg Neutrophils % Seg Neuts % (Manual) Lymphocytes % (Manual) Seg Neutrophils # Seg Neutrophils # Man Lymphocytes # (Manual) PT INR ABG pH ABG pO2 ABG HCO3 ABG O2 Saturation ABG Base Excess ABG Hemoglobin Oxyhemoglobin Sodium Potassium Chloride Carbon Dioxide BUN Creatinine Glucose POC Glucose 139 H 138 H 157 H Calcium Phosphorus AST ALT Ammonia Albumin Urine WBC (Auto) 03/04/22 03/04/22 03/04/22 05:32 05:32 05:48 WBC 16.1 H RBC 2.81 L Hgb 9.3 L Hct 28.8 L MCV 102 H MCH 33 H MCHC RDW 16.7 H Lymph % (Auto) [place] % (Auto) Lymph # (Auto) [place] # (Auto) Seg Neutrophils % Seg Neuts % (Manual) Lymphocytes % (Manual) Seg Neutrophils # Seg Neutrophils # Man Lymphocytes # (Manual) PT INR ABG pH ABG pO2 ABG HCO3 ABG O2 Saturation ABG Base Excess ABG Hemoglobin Oxyhemoglobin Sodium Potassium Chloride Carbon Dioxide BUN Creatinine 0.7 L Glucose 135 H POC Glucose 145 H Calcium 8.3 L Phosphorus AST ALT Ammonia Albumin Urine WBC (Auto) 03/04/22 03/04/22 03/05/22 11:34 16:29 00:28 WBC RBC Hgb Hct MCV MCH MCHC RDW Lymph % (Auto) [place] % (Auto) Lymph # (Auto) [place] # (Auto) Seg Neutrophils % Seg Neuts % (Manual) Lymphocytes % (Manual) Seg Neutrophils # Seg Neutrophils # Man Lymphocytes # (Manual) PT INR ABG pH ABG pO2 ABG HCO3 ABG O2 Saturation ABG Base Excess ABG Hemoglobin Oxyhemoglobin Sodium Potassium Chloride Carbon Dioxide BUN Creatinine Glucose POC Glucose 148 H 140 H 116 H Calcium Phosphorus AST ALT Ammonia Albumin Urine WBC (Auto) 03/05/22 03/05/22 03/05/22 06:29 11:30 17:38 WBC RBC Hgb Hct MCV MCH MCHC RDW Lymph % (Auto) [place] % (Auto) Lymph # (Auto) [place] # (Auto) Seg Neutrophils % Seg Neuts % (Manual) Lymphocytes % (Manual) Seg Neutrophils # Seg Neutrophils # Man Lymphocytes # (Manual) PT INR ABG pH ABG pO2 ABG HCO3 ABG O2 Saturation ABG Base Excess ABG Hemoglobin Oxyhemoglobin Sodium Potassium Chloride Carbon Dioxide BUN Creatinine Glucose POC Glucose 114 H 114 H 117 H Calcium Phosphorus AST ALT Ammonia Albumin Urine WBC (Auto) 03/06/22 03/06/22 03/06/22 04:17 04:17 06:06 WBC 13.4 H RBC 2.85 L Hgb 9.4 L Hct 29.0 L MCV 102 H MCH 33 H MCHC RDW 16.4 H Lymph % (Auto) [place] % (Auto) Lymph # (Auto) [place] # (Auto) Seg Neutrophils % Seg Neuts % (Manual) Lymphocytes % (Manual) Seg Neutrophils # Seg Neutrophils # Man Lymphocytes # (Manual) PT INR ABG pH ABG pO2 ABG HCO3 ABG O2 Saturation ABG Base Excess ABG Hemoglobin Oxyhemoglobin Sodium Potassium 3.5 L Chloride Carbon Dioxide 31 H BUN Creatinine 0.6 L Glucose 101 H POC Glucose 106 H Calcium 7.7 L Phosphorus 2.00 L AST ALT Ammonia Albumin Urine WBC (Auto) 03/06/22 03/06/22 03/07/22 18:04 23:50 05:14 WBC RBC Hgb Hct MCV MCH MCHC RDW Lymph % (Auto) [place] % (Auto) Lymph # (Auto) [place] # (Auto) Seg Neutrophils % Seg Neuts % (Manual) Lymphocytes % (Manual) Seg Neutrophils # Seg Neutrophils # Man Lymphocytes # (Manual) PT INR ABG pH ABG pO2 ABG HCO3 ABG O2 Saturation ABG Base Excess ABG Hemoglobin Oxyhemoglobin Sodium Potassium Chloride Carbon Dioxide BUN Creatinine Glucose POC Glucose 108 H 115 H 116 H Calcium Phosphorus AST ALT Ammonia Albumin Urine WBC (Auto) 03/07/22 03/07/22 03/08/22 11:42 18:13 04:34 WBC RBC 2.86 L Hgb 9.2 L Hct 29.3 L MCV 103 H MCH MCHC 31 L RDW 16.9 H Lymph % (Auto) [place] % (Auto) Lymph # (Auto) [place] # (Auto) Seg Neutrophils % Seg Neuts % (Manual) Lymphocytes % (Manual) Seg Neutrophils # Seg Neutrophils # Man Lymphocytes # (Manual) PT INR ABG pH ABG pO2 ABG HCO3 ABG O2 Saturation ABG Base Excess ABG Hemoglobin Oxyhemoglobin Sodium Potassium Chloride Carbon Dioxide BUN Creatinine Glucose POC Glucose 123 H 109 H Calcium Phosphorus AST ALT Ammonia Albumin Urine WBC (Auto) 03/08/22 03/08/22 03/08/22 04:34 11:29 16:34 WBC RBC Hgb Hct MCV MCH MCHC RDW Lymph % (Auto) [place] % (Auto) Lymph # (Auto) [place] # (Auto) Seg Neutrophils % Seg Neuts % (Manual) Lymphocytes % (Manual) Seg Neutrophils # Seg Neutrophils # Man Lymphocytes # (Manual) PT INR ABG pH ABG pO2 ABG HCO3 ABG O2 Saturation ABG Base Excess ABG Hemoglobin Oxyhemoglobin Sodium Potassium Chloride Carbon Dioxide 33 H BUN Creatinine 0.5 L Glucose 109 H POC Glucose 117 H 109 H Calcium 7.6 L Phosphorus AST ALT Ammonia Albumin Urine WBC (Auto) 03/08/22 03/09/22 03/10/22 23:56 11:15 03:57 WBC RBC 2.99 L Hgb 9.9 L Hct 30.3 L MCV 102 H MCH 33 H MCHC RDW 16.8 H Lymph % (Auto) 13.3 L [place] % (Auto) 12.5 H Lymph # (Auto) [place] # (Auto) 1.3 H Seg Neutrophils % 72.4 H Seg Neuts % (Manual) Lymphocytes % (Manual) Seg Neutrophils # Seg Neutrophils # Man Lymphocytes # (Manual) PT INR ABG pH ABG pO2 ABG HCO3 ABG O2 Saturation ABG Base Excess ABG Hemoglobin Oxyhemoglobin Sodium Potassium Chloride Carbon Dioxide BUN Creatinine Glucose POC Glucose 106 H 110 H Calcium Phosphorus AST ALT Ammonia Albumin Urine WBC (Auto) 03/10/22 03/10/22 03/10/22 03:57 04:50 16:04 WBC RBC Hgb Hct MCV MCH MCHC RDW Lymph % (Auto) [place] % (Auto) Lymph # (Auto) [place] # (Auto) Seg Neutrophils % Seg Neuts % (Manual) Lymphocytes % (Manual) Seg Neutrophils # Seg Neutrophils # Man Lymphocytes # (Manual) PT INR ABG pH 7.465 H ABG pO2 ABG HCO3 31.9 H ABG O2 Saturation ABG Base Excess 7.3 H ABG Hemoglobin 11.0 L Oxyhemoglobin Sodium Potassium 3.4 L Chloride Carbon Dioxide BUN Creatinine 0.6 L Glucose POC Glucose 115 H Calcium 8.1 L Phosphorus AST ALT Ammonia Albumin 1.9 L Urine WBC (Auto) 03/11/22 03/11/22 03/11/22 04:02 04:02 04:02 WBC 12.0 H RBC 2.81 L Hgb 9.2 L Hct 29.1 L MCV 103 H MCH 33 H MCHC RDW 17.5 H Lymph % (Auto) [place] % (Auto) Lymph # (Auto) [place] # (Auto) Seg Neutrophils % Seg Neuts % (Manual) Lymphocytes % (Manual) Seg Neutrophils # Seg Neutrophils # Man Lymphocytes # (Manual) PT 16.2 H INR 1.16 H ABG pH ABG pO2 ABG HCO3 ABG O2 Saturation ABG Base Excess ABG Hemoglobin Oxyhemoglobin Sodium Potassium Chloride Carbon Dioxide BUN Creatinine 0.5 L Glucose 104 H POC Glucose Calcium 7.9 L Phosphorus AST ALT Ammonia Albumin Urine WBC (Auto) 03/11/22 03/11/22 03/11/22 05:10 11:07 16:32 WBC RBC Hgb Hct MCV MCH MCHC RDW Lymph % (Auto) [place] % (Auto) Lymph # (Auto) [place] # (Auto) Seg Neutrophils % Seg Neuts % (Manual) Lymphocytes % (Manual) Seg Neutrophils # Seg Neutrophils # Man Lymphocytes # (Manual) PT INR ABG pH 7.476 H ABG pO2 ABG HCO3 29.7 H ABG O2 Saturation ABG Base Excess 5.7 H ABG Hemoglobin 9.1 L Oxyhemoglobin Sodium Potassium Chloride Carbon Dioxide BUN Creatinine Glucose POC Glucose 108 H 121 H Calcium Phosphorus AST ALT Ammonia Albumin Urine WBC (Auto) 03/12/22 03/13/22 03/13/22 05:51 06:08 12:02 WBC RBC 2.73 L Hgb 9.0 L Hct 27.5 L MCV 101 H MCH 33 H MCHC RDW 17.2 H Lymph % (Auto) [place] % (Auto) Lymph # (Auto) [place] # (Auto) Seg Neutrophils % Seg Neuts % (Manual) Lymphocytes % (Manual) Seg Neutrophils # Seg Neutrophils # Man Lymphocytes # (Manual) PT INR ABG pH ABG pO2 ABG HCO3 ABG O2 Saturation ABG Base Excess ABG Hemoglobin Oxyhemoglobin Sodium Potassium Chloride Carbon Dioxide BUN Creatinine Glucose POC Glucose 116 H 111 H Calcium Phosphorus AST ALT Ammonia Albumin Urine WBC (Auto) 03/13/22 03/13/22 03/14/22 12:48 18:17 03:58 WBC RBC 2.97 L Hgb 9.7 L Hct 30.0 L MCV 101 H MCH 33 H MCHC RDW 16.7 H Lymph % (Auto) [place] % (Auto) Lymph # (Auto) [place] # (Auto) Seg Neutrophils % Seg Neuts % (Manual) Lymphocytes % (Manual) Seg Neutrophils # Seg Neutrophils # Man Lymphocytes # (Manual) PT INR ABG pH ABG pO2 ABG HCO3 ABG O2 Saturation ABG Base Excess ABG Hemoglobin Oxyhemoglobin Sodium Potassium Chloride Carbon Dioxide BUN Creatinine Glucose POC Glucose 125 H 114 H Calcium Phosphorus AST ALT Ammonia Albumin Urine WBC (Auto) 03/14/22 03/14/22 03/14/22 03:58 13:01 16:41 WBC RBC Hgb Hct MCV MCH MCHC RDW Lymph % (Auto) [place] % (Auto) Lymph # (Auto) [place] # (Auto) Seg Neutrophils % Seg Neuts % (Manual) Lymphocytes % (Manual) Seg Neutrophils # Seg Neutrophils # Man Lymphocytes # (Manual) PT INR ABG pH ABG pO2 ABG HCO3 ABG O2 Saturation ABG Base Excess ABG Hemoglobin Oxyhemoglobin Sodium Potassium Chloride Carbon Dioxide BUN Creatinine 0.6 L Glucose POC Glucose 118 H 109 H Calcium 8.2 L Phosphorus AST ALT Ammonia Albumin Urine WBC (Auto) 03/16/22 03/16/22 03/17/22 05:28 05:28 23:19 WBC RBC 2.81 L Hgb 9.1 L Hct 27.8 L MCV 99 H MCH MCHC RDW 17.0 H Lymph % (Auto) [place] % (Auto) Lymph # (Auto) [place] # (Auto) Seg Neutrophils % Seg Neuts % (Manual) Lymphocytes % (Manual) Seg Neutrophils # Seg Neutrophils # Man Lymphocytes # (Manual) PT INR ABG pH ABG pO2 ABG HCO3 ABG O2 Saturation ABG Base Excess ABG Hemoglobin Oxyhemoglobin Sodium Potassium Chloride Carbon Dioxide BUN Creatinine 0.5 L Glucose POC Glucose 113 H Calcium 8.2 L Phosphorus AST ALT Ammonia Albumin Urine WBC (Auto) 03/20/22 03/20/22 03/20/22 04:09 04:09 17:22 WBC RBC 2.90 L Hgb 9.6 L Hct 28.9 L MCV 100 H MCH 33 H MCHC RDW 17.4 H Lymph % (Auto) [place] % (Auto) Lymph # (Auto) [place] # (Auto) Seg Neutrophils % Seg Neuts % (Manual) Lymphocytes % (Manual) Seg Neutrophils # Seg Neutrophils # Man Lymphocytes # (Manual) PT INR ABG pH ABG pO2 ABG HCO3 ABG O2 Saturation ABG Base Excess ABG Hemoglobin Oxyhemoglobin Sodium Potassium Chloride Carbon Dioxide BUN Creatinine 0.6 L Glucose POC Glucose 110 H Calcium 8.2 L Phosphorus AST ALT Ammonia Albumin Urine WBC (Auto) 03/21/22 03/21/22 03/22/22 18:24 23:09 12:18 WBC RBC Hgb Hct MCV MCH MCHC RDW Lymph % (Auto) [place] % (Auto) Lymph # (Auto) [place] # (Auto) Seg Neutrophils % Seg Neuts % (Manual) Lymphocytes % (Manual) Seg Neutrophils # Seg Neutrophils # Man Lymphocytes # (Manual) PT INR ABG pH ABG pO2 ABG HCO3 ABG O2 Saturation ABG Base Excess ABG Hemoglobin Oxyhemoglobin Sodium Potassium Chloride Carbon Dioxide BUN Creatinine Glucose POC Glucose 110 H 107 H 106 H Calcium Phosphorus AST ALT Ammonia Albumin Urine WBC (Auto) 03/22/22 03/23/22 03/23/22 14:25 00:21 11:31 WBC RBC Hgb Hct MCV MCH MCHC RDW Lymph % (Auto) [place] % (Auto) Lymph # (Auto) [place] # (Auto) Seg Neutrophils % Seg Neuts % (Manual) Lymphocytes % (Manual) Seg Neutrophils # Seg Neutrophils # Man Lymphocytes # (Manual) PT INR ABG pH ABG pO2 150.5 H ABG HCO3 32.4 H ABG O2 Saturation ABG Base Excess 6.2 H ABG Hemoglobin 11.4 L Oxyhemoglobin Sodium Potassium Chloride Carbon Dioxide BUN Creatinine Glucose POC Glucose 107 H 110 H Calcium Phosphorus AST ALT Ammonia Albumin Urine WBC (Auto) 03/24/22 03/24/22 03/24/22 03:47 03:47 05:56 WBC RBC 3.18 L Hgb 10.1 L Hct 31.1 L MCV 98 H MCH MCHC RDW 17.4 H Lymph % (Auto) [place] % (Auto) Lymph # (Auto) [place] # (Auto) Seg Neutrophils % Seg Neuts % (Manual) Lymphocytes % (Manual) Seg Neutrophils # Seg Neutrophils # Man Lymphocytes # (Manual) PT INR ABG pH ABG pO2 ABG HCO3 ABG O2 Saturation ABG Base Excess ABG Hemoglobin Oxyhemoglobin Sodium Potassium Chloride Carbon Dioxide BUN Creatinine 0.5 L Glucose POC Glucose 107 H Calcium Phosphorus AST ALT Ammonia Albumin Urine WBC (Auto) 03/24/22 03/25/22 03/25/22 11:15 00:14 11:24 WBC RBC Hgb Hct MCV MCH MCHC RDW Lymph % (Auto) [place] % (Auto) Lymph # (Auto) [place] # (Auto) Seg Neutrophils % Seg Neuts % (Manual) Lymphocytes % (Manual) Seg Neutrophils # Seg Neutrophils # Man Lymphocytes # (Manual) PT INR ABG pH ABG pO2 ABG HCO3 ABG O2 Saturation ABG Base Excess ABG Hemoglobin Oxyhemoglobin Sodium Potassium Chloride Carbon Dioxide BUN Creatinine Glucose POC Glucose 126 H 109 H 110 H Calcium Phosphorus AST ALT Ammonia Albumin Urine WBC (Auto) 03/25/22 03/26/22 03/26/22 16:27 05:18 11:15 WBC RBC Hgb Hct MCV MCH MCHC RDW Lymph % (Auto) [place] % (Auto) Lymph # (Auto) [place] # (Auto) Seg Neutrophils % Seg Neuts % (Manual) Lymphocytes % (Manual) Seg Neutrophils # Seg Neutrophils # Man Lymphocytes # (Manual) PT INR ABG pH ABG pO2 ABG HCO3 ABG O2 Saturation ABG Base Excess ABG Hemoglobin Oxyhemoglobin Sodium Potassium Chloride Carbon Dioxide BUN Creatinine Glucose POC Glucose 123 H 114 H 135 H Calcium Phosphorus AST ALT Ammonia Albumin Urine WBC (Auto) 03/26/22 03/27/22 03/27/22 18:08 03:52 03:52 WBC 17.1 H RBC 2.94 L Hgb 9.2 L Hct 29.3 L MCV 100 H MCH MCHC 31 L RDW 17.5 H Lymph % (Auto) [place] % (Auto) Lymph # (Auto) [place] # (Auto) Seg Neutrophils % Seg Neuts % (Manual) Lymphocytes % (Manual) Seg Neutrophils # Seg Neutrophils # Man Lymphocytes # (Manual) PT INR ABG pH ABG pO2 ABG HCO3 ABG O2 Saturation ABG Base Excess ABG Hemoglobin Oxyhemoglobin Sodium 136 L Potassium Chloride Carbon Dioxide 32 H BUN 23 H Creatinine 0.6 L Glucose POC Glucose 130 H Calcium 8.2 L Phosphorus AST ALT Ammonia Albumin Urine WBC (Auto) 03/27/22 03/27/22 03/27/22 08:36 12:55 18:27 WBC RBC Hgb Hct MCV MCH MCHC RDW Lymph % (Auto) [place] % (Auto) Lymph # (Auto) [place] # (Auto) Seg Neutrophils % Seg Neuts % (Manual) Lymphocytes % (Manual) Seg Neutrophils # Seg Neutrophils # Man Lymphocytes # (Manual) PT INR ABG pH ABG pO2 ABG HCO3 ABG O2 Saturation ABG Base Excess ABG Hemoglobin Oxyhemoglobin Sodium Potassium Chloride Carbon Dioxide BUN Creatinine Glucose POC Glucose 137 H 114 H Calcium Phosphorus AST ALT Ammonia Albumin Urine WBC (Auto) > 182.0 H 03/28/22 03/28/22 03/28/22 01:00 04:06 04:52 WBC 14.2 H RBC 2.76 L Hgb 8.6 L Hct 26.8 L MCV 97 H MCH MCHC RDW 17.4 H Lymph % (Auto) 7.5 L [place] % (Auto) 10.5 H Lymph # (Auto) 1.1 L [place] # (Auto) 1.5 H Seg Neutrophils % 80.7 H Seg Neuts % (Manual) Lymphocytes % (Manual) Seg Neutrophils # 11.4 H Seg Neutrophils # Man Lymphocytes # (Manual) PT INR ABG pH ABG pO2 ABG HCO3 ABG O2 Saturation ABG Base Excess ABG Hemoglobin Oxyhemoglobin Sodium Potassium Chloride Carbon Dioxide BUN Creatinine Glucose POC Glucose 111 H 111 H Calcium Phosphorus AST ALT Ammonia Albumin Urine WBC (Auto) 03/28/22 03/28/22 03/29/22 12:09 23:23 04:22 WBC RBC 2.85 L Hgb 8.9 L Hct 27.8 L MCV 98 H MCH MCHC RDW 17.8 H Lymph % (Auto) [place] % (Auto) Lymph # (Auto) [place] # (Auto) Seg Neutrophils % Seg Neuts % (Manual) Lymphocytes % (Manual) Seg Neutrophils # Seg Neutrophils # Man Lymphocytes # (Manual) PT INR ABG pH ABG pO2 ABG HCO3 ABG O2 Saturation ABG Base Excess ABG Hemoglobin Oxyhemoglobin Sodium Potassium Chloride Carbon Dioxide BUN Creatinine Glucose POC Glucose 114 H 112 H Calcium Phosphorus AST ALT Ammonia Albumin Urine WBC (Auto) 03/29/22 05:56 WBC RBC Hgb Hct MCV MCH MCHC RDW Lymph % (Auto) [place] % (Auto) Lymph # (Auto) [place] # (Auto) Seg Neutrophils % Seg Neuts % (Manual) Lymphocytes % (Manual) Seg Neutrophils # Seg Neutrophils # Man Lymphocytes # (Manual) PT INR ABG pH ABG pO2 ABG HCO3 ABG O2 Saturation ABG Base Excess ABG Hemoglobin Oxyhemoglobin Sodium Potassium Chloride Carbon Dioxide BUN Creatinine Glucose POC Glucose 116 H Calcium Phosphorus AST ALT Ammonia Albumin Urine WBC (Auto)
[2022-03-29] MEDS: cefTRIAXone/NS 1 GM/50 ML 1 GM/50 ML BAG IV SCH (12:23)
[2022-03-29] MEDS: PRAVASTATIN 40 MG TAB FEEDTUBE SCH (21:29)
[2022-03-30] MEDS: ALBUTEROL 2.5 MG/3 ML NEBU IH SCH ×4 (02:04→20:44)
[2022-03-30] MEDS: HEPARIN 5,000 UNIT/1 ML VIAL SUB-Q SCH ×3 (05:33→21:17)
[2022-03-30] MEDS: LEVOTHYROXINE 25 MCG TAB FEEDTUBE SCH (05:33)
[2022-03-30] MEDS: MIDODRINE 2.5 MG TAB FEEDTUBE SCH ×3 (07:35→18:31)
[2022-03-30] MEDS: FAMOTIDINE 20 MG TAB FEEDTUBE SCH ×2 (09:29→21:17)
[2022-03-30] MEDS: levETIRAcetam 500 MG/5 ML ORAL LIQD FEEDTUBE SCH ×2 (09:29→21:17)
[2022-03-30] MEDS: SENNOSIDES/DOCUSATE SODIUM 8.6/50 MG TAB FEEDTUBE SCH ×2 (09:29→21:17)
--- NOTE | 2022-03-30 10:02 | Progress Note ---
<CODYCARSON ZiaRadha - Last Filed: 03/30/22 09:59> Assessment and Plan Assessment and plan: This is a 51-year-old male with HTN, seizure disorder, Down syndrome, HLD, partial blindness admitted with aspiration pneumonia, probable bronchogenic carcinoma, acute hypoxic respiratory failure and acute encephalopathy Neuro: h/o seizure disorder, Down syndrome, partial blindness -Reorientation as needed -Maintain sleep-wake cycle -aspiration/seizure precautions -As needed analgesia -CT head showed no acute abnormality -Continue Keppra Cardiac: h/o HTN, HLD -Cardiology consulted, appreciate recommendations -Blood pressure monitoring per protocol -PO Midodrine Respiratory: Acute hypoxic respiratory failure, ruled out bronchogenic carcinoma -CCM consulted, appreciate recommendations -Intubated on 02/24 with a 8.0 at 23 at the lips but extubated 02/28 -reintubated 02/28 with 8.0 OETT -Vent settings: AC rate 14, TV 360, PEEP 6, FO2 30% -See RT notes for titration -VAP bundle -SPO2 monitoring per protocol -02/18 CTA chest showed no evidence of pulmonary embolism, suspected bronchogenic carcinoma with associated obstruction of the right lower lobe proximal bronchus segment, 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 adenopathy and suspected to left lower lobe metastatic nodule -02/26 Bronch->mucous, no lesion noted -02/27 CT chest read: right mainstem bronchus patent with small amount of interval bronchial fluid which may be mucus (this may account for the appearance of the prior CTA chest fluid-filled airway rather than entering bronchial lesion), previously seen complete left lower lobe since related to bronchial occlusion has significantly improved, there is persistent compressive atelectasis in the right lower lung secondary to the pleural effusion, bilateral pleural effusions, right lung pneumonia -CT neck showed no acute changes -s/p steroids GI: Moderate protein calorie malnutrition -24 hours +1030 mL -PPI -NTR consulted for tube feedings -BR: Senokot S : NAD -Monitor intake and output -Renally dose medications -Avoid nephrotoxic medications -Trend BMP ID: UTI, Aspiration PNA (resolved), sacral wound (POA) -UA with pyuria, mod LE with leukocytosis -WOCN consulted -Dressing changes per nursing -S/p Rocephin for 5 days (02/19-02/24) -Current abx therapy: rocephin for 3 days -Monitor WBC and temperature curve Endo: NAD -Avoid hypoglycemia -Accu-Cheks every 6 -Avoid hypoglycemia Heme: NAD -Trend CBC -Transfuse hemoglobin less than 7 -SCDs to BLE while in bed Dispo: -Awaiting guardianship for trach/peg The high probability of a clinically significant, sudden or life threatening deterioration of the [resp] system(s) required my full and direct attention, intervention and personal management. The aggregate critical care time was [60] minutes. This time is in addition to time spent performing reported procedures but includes the following: [x] Data Review and interpretation [x] Patient assessment and monitoring of vital signs [x] Documentation [x] Medication orders and management History Interval history: This is a 51-year-old male with HTN, seizure disorder, Down syndrome, HLD, and partial blindness was a resident of the [facility] who presented to emergency department on 02/19 for evaluation of change in mental status. Of note patient was recently discharged a few weeks ago for a seizure disorder and UTI. Upon arrival to the emergency department patient was noted to be hypoxic with SPO2 in the 80s on a nonrebreather with difficulty breathing. Work-up in the emergency department revealed CXR which showed elevation of the right hemidiaphragm, right lower lung atelectasis and effusion with mild increased pulmonary vascularity but no pneumothorax and CT of the head did not show any acute abnormality. 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 Patient was admitted to the hospitalist service to the [facility] Hospital course to date: 02/19/2022. Consult pulmonary for further evaluation and possible bronchoscopy. I suspect patient has component of aspiration pneumonia as well. We will obtain a speech therapy evaluation for swallowing and start empiric antibiotics. Continue O2 supplementation to maintain sats greater than 92%. 02/20/2022. Pulmonary feels that the abnormality seen on CT scan is highly unlikely for a mass given negative chest x-ray 1 month ago and no risk factors. Etiology is likely secondary to aspiration from possibly a foreign body most likely food with atelectasis of the right lower lobe. Bronchoscopy is needed in the case to evaluate to see if lung mass is there vs foreign body, but at this time not able to do because no identifiable person that is able to give consent. Continue aspiration precautions and continue speech therapy evaluation for swallowing. Keep n.p.o. for now 02/21/2022. Patient remains NPO. Consider DHT placement. Follow-up with speech therapy evaluation. Pulmonology to consider bronchoscopy if able to obtain consent. Continue IV antibiotics for aspiration pneumonia 02/22/2022. Patient remains NPO. Consider DHT placement. Follow-up with speech therapy evaluation. Pulmonology to consider bronchoscopy if able to obtain consent. Continue IV antibiotics for aspiration pneumonia 02/23/2022. DHT placed yesterday. TF initiated for nutritional support. Patient currently with strict NPO. Aspiration precautions. Pulmonology to consider bronchoscopy if able to obtain consent. Continue IV antibiotics for aspiration pneumonia 02/24: Patient was transferred to the ICU for further monitoring. This morning patient remained on high flow nasal cannula on 40 L/100% and despite repeated nasotracheal suctioning patient SPO2 remained in the 80s. Patient was placed on nonrebreather and SPO2 increased to upper 80s. Patient was subsequently intubated by anesthesia. Started on sedation. 02/25: Patient remains sedated on fentanyl, potassium and magnesium repleted. IV fluids and amlodipine discontinued. Possible bronchoscopy tomorrow. 02/26: Patient had a bronchoscopy today which showed mucus and no endobronchial lesions or masses. FiO2 was increased to 100 during and postprocedure weaning as tolerated. Repeat CXR is much improved after bronc. Given 1 L LR bolus due to hypotension. No acute events reported overnight. 02/27: Decreased PEEP, will repeat CT of chest. no acute changes overnight. 02/28: Patient was extubated today however had to be be intubated shortly after. Patient ETT looked mispositioned on x-ray and Dr. Alonzo did do a bedside bronc. Patient was briefly hypotensive and on Levophed postintubation however Levophed was quickly titrated off and patient did not require central line. No acute events reported overnight. Will obtain CT neck d/t difficulty intubating. Ethic committee consulted. 03/01: Overnight patient was hypotensive and started on IVF. Patient started on steroids as no air leak noted and hypotension and given 2 L LR 03/02: Overnight patient received bolus per RN report, no orders seen. Continue supportive care. 03/04: MAIDA overnight. Remains stable on the vent. Awaiting on desicion from ethics community for possible trach and PEG. Continue current supportive measures 03/05: MAIDA overnight. Awaiting on desicion from [facility] for possible tr ach and PEG. Midodrine held yesterday, HR improved. Continue current supportive measures. Daily PSV trial as tolerated per [facility] 03/06: Remains stable on the vent. Continue current supportive measures, daily PSV trial per CCM. Awaiting on desicion for possible trach and PEG. 03/07: MAIDA overnight, remains stable. Continue daily PSV trial as tolerated. Awaiting on desicion for possible trach and PEG. 03/08: Patient failed PSV trial this am due to tachycardia and increase RR. Continue supportive measures and daily PSV trial as tolerated. Possible discussion with ethics and [facility] on Thursday in regards to medical necessity, may need to consider two physician consent if no one is able to claim responsibility for this patient. 03/09: MAIDA overnight. Continue current supportive measures and daily PSV trail as tolerated. Awaiting on decision for possible trach and PEG, discussion with Ethics possibly tomorrow per [facility]. 03/10: no acute events overnight, PSV today. replete potassium. 03/11: No acute events reported overnight, patient failed PSV yesterday and will repeat today. Hospital to start guardianship process. 03/12: No acute events overnight. PSV today 03/13: Patient given 500ml normal saline and started on midodrine for hypotension. No acute events reported overnight. Failed pressure support again this morning. 03/14: No acute events reported overnight, patient blood pressure seems better therefore midodrine discontinued. RT placed on CPAP need lasted for couple hours. Will remove summers 03/15: Midodrine was restarted yesterday evening for hypotension, Summers catheter not removed due to sacral ulcer and history of retention. Unable to crush Flomax and patient will not tolerate doxazosin given hypotension. Given LR bolus this morning. If blood pressure continues to be borderline after bolus, we will adjust management as needed. CPAP as tolerated 03/16: No acute events reported overnight, patient placed on CPAP trial this morning which he failed. 03/17: RT attempted PSV which he failed again today. No acute events reported overnight. 03/18: Awaiting ethic committee's decision on Trach/PEG. Patient tolerated PSV trial for over 3 hrs today, continue daily PSV trial as tolerated. 03/19: MAIDA overnight. Continue current supportive measures. Daily PSV trial as tolerated. Awaiting on desicion for possible trach and PEG. 03/20: MAIDA overnight. Daily PSV trial as tolerated. Awaiting decision on guardianship for trach and PEG. 03/21: Remains stable, condition unchanged. Continue supportive measures and daily PSV trial as tolerated. 03/22: MAIDA overnight. Continue current supportive measures. Daily PSV trial as tolerated 03/23: MAIDA overnight, continue supportive measures and daily PSV trial as tolerated. 03/24: Condition unchanged. Still waiting on Ethics' decision for possible trach/Peg. Continue supportive measures and daily PSV trial as tolerated. 03/25: PSV attempt today, does open eyes to stimuli, no acute events overnight. 03/26: Yesterday evening Summers catheter was removed as he was due to be changed, condom cath placed. Overnight patient had good urine output and per RN repeated bladder scans showed less than 200 mL of urine. We will continue to monitor urine output. RT to attempt PSV 03/27: Patient has leukocytosis today and UA has pyuria with moderate LE therefore he will be started on antibiotics. 03/28: Leukocytosis improving. No acute events reported overnight. 03/29: No acute events overnight. Continue supportive care. 03/30: no acute events overnight, PSV again. Hospitalist Physical - Constitutional Vitals: Temp Pulse Resp BP Pulse Ox 97.9 F 101 H 20 117/63 94 03/30/22 07:53 03/30/22 08:00 03/30/22 08:00 03/30/22 08:00 03/30/22 08:00 General appearance: Present: no acute distress, well-nourished - EENT Eyes: Present: PERRL ENT: poor dentition - Neck Neck: Present: normal ROM - Respiratory Respiratory effort: normal Respiratory: bilateral: diminished - Cardiovascular Rhythm: regular Heart Sounds: Present: S1 & S2. Absent: systolic murmur, diastolic murmur - Extremities Extremities: no ischemia, pulses intact, pulses symmetrical, No edema, normal temperature, normal color Peripheral Pulses: within normal limits - Abdominal General gastrointestinal: soft, non-tender, non-distended, normal bowel sounds - Integumentary Integumentary: Present: warm, dry - Psychiatric Psychiatric: cooperative - Neurologic Neurologic: moves all extremities - Allied Health Allied health notes reviewed: nursing, RT HEART Score - HEART Score Troponin: Troponin T < 0.010 ng/mL (0.00-0.029) 02/18/22 21:02 Results - Labs CBC & Chem 7: 03/29/22 04:22 03/27/22 03:52 Labs: Laboratory Last Values WBC 9.9 K/mm3 (4.5-11.0) 03/29/22 04:22 RBC 2.85 M/mm3 (3.65-5.03) L 03/29/22 04:22 Hgb 8.9 gm/dl (11.8-15.2) L 03/29/22 04:22 Hct 27.8 % (35.5-45.6) L 03/29/22 04:22 MCV 98 fl (84-94) H 03/29/22 04:22 MCH 31 pg (28-32) 03/29/22 04:22 MCHC 32 % (32-34) 03/29/22 04:22 RDW 17.8 % (13.2-15.2) H 03/29/22 04:22 Plt Count 310 K/mm3 (140-440) 03/29/22 04:22 Lymph % (Auto) 7.5 % (13.4-35.0) L 03/28/22 04:06 Morgan % (Auto) 10.5 % (0.0-7.3) H 03/28/22 04:06 Eos % (Auto) 0.9 % (0.0-4.3) 03/28/22 04:06 Baso % (Auto) 0.4 % (0.0-1.8) 03/28/22 04:06 Lymph # (Auto) 1.1 K/mm3 (1.2-5.4) L 03/28/22 04:06 Morgan # (Auto) 1.5 K/mm3 (0.0-0.8) H 03/28/22 04:06 Eos # (Auto) 0.1 K/mm3 (0.0-0.4) 03/28/22 04:06 Baso # (Auto) 0.1 K/mm3 (0.0-0.1) 03/28/22 04:06 Add Manual Diff Complete 03/03/22 03:54 Total Counted 100 03/03/22 03:54 Seg Neutrophils % 80.7 % (40.0-70.0) H 03/28/22 04:06 Seg Neuts % (Manual) 95.0 % (40.0-70.0) H 03/03/22 03:54 Band Neutrophils % 0 % 03/03/22 03:54 Lymphocytes % (Manual) 3.0 % (13.4-35.0) L 03/03/22 03:54 Reactive Lymphs % (Man) 0 % 03/03/22 03:54 Monocytes % (Manual) 2.0 % (0.0-7.3) 03/03/22 03:54 Eosinophils % (Manual) 0 % (0.0-4.3) 03/03/22 03:54 Basophils % (Manual) 0 % (0.0-1.8) 03/03/22 03:54 Metamyelocytes % 0 % 03/03/22 03:54 Myelocytes % 0 % 03/03/22 03:54 Promyelocytes % 0 % 03/03/22 03:54 Blast Cells % 0 % 03/03/22 03:54 Nucleated RBC % Not Reportable 03/03/22 03:54 Seg Neutrophils # 11.4 K/mm3 (1.8-7.7) H 03/28/22 04:06 Seg Neutrophils # Man 18.5 K/mm3 (1.8-7.7) H 03/03/22 03:54 Band Neutrophils # 0.0 K/mm3 03/03/22 03:54 Lymphocytes # (Manual) 0.6 K/mm3 (1.2-5.4) L 03/03/22 03:54 Abs React Lymphs (Man) 0.0 K/mm3 03/03/22 03:54 Monocytes # (Manual) 0.4 K/mm3 (0.0-0.8) 03/03/22 03:54 Eosinophils # (Manual) 0.0 K/mm3 (0.0-0.4) 03/03/22 03:54 Basophils # (Manual) 0.0 K/mm3 (0.0-0.1) 03/03/22 03:54 Metamyelocytes # 0.0 K/mm3 03/03/22 03:54 Myelocytes # 0.0 K/mm3 03/03/22 03:54 Promyelocytes # 0.0 K/mm3 03/03/22 03:54 Blast Cells # 0.0 K/mm3 03/03/22 03:54 WBC Morphology Not Reportable 03/03/22 03:54 Hypersegmented Neuts Not Reportable 03/03/22 03:54 Hyposegmented Neuts Not Reportable 03/03/22 03:54 Hypogranular Neuts Not Reportable 03/03/22 03:54 Smudge Cells Not Reportable 03/03/22 03:54 Toxic Granulation Not Reportable 03/03/22 03:54 Toxic Vacuolation Not Reportable 03/03/22 03:54 Dohle Bodies Not Reportable 03/03/22 03:54 Pelger-Huet Anomaly Not Reportable 03/03/22 03:54 Lakshmi Rods Not Reportable 03/03/22 03:54 Platelet Estimate Consistent w auto 03/03/22 03:54 Clumped Platelets Not Reportable 03/03/22 03:54 Plt Clumps, EDTA Not Reportable 03/03/22 03:54 Large Platelets Not Reportable 03/03/22 03:54 Giant Platelets Not Reportable 03/03/22 03:54 Platelet Satelliting Not Reportable 03/03/22 03:54 Plt Morphology Comment Not Reportable 03/03/22 03:54 RBC Morphology Not Reportable 03/03/22 03:54 Dimorphic RBCs Not Reportable 03/03/22 03:54 Polychromasia Not Reportable 03/03/22 03:54 Hypochromasia Not Reportable 03/03/22 03:54 Poikilocytosis Not Reportable 03/03/22 03:54 Anisocytosis 1+ 03/03/22 03:54 Microcytosis Not Reportable 03/03/22 03:54 Macrocytosis Not Reportable 03/03/22 03:54 Spherocytes Not Reportable 03/03/22 03:54 Pappenheimer Bodies Not Reportable 03/03/22 03:54 Sickle Cells Not Reportable 03/03/22 03:54 Target Cells Not Reportable 03/03/22 03:54 Tear Drop Cells Not Reportable 03/03/22 03:54 Ovalocytes Not Reportable 03/03/22 03:54 Helmet Cells Not Reportable 03/03/22 03:54 [place] Bodies Not Reportable 03/03/22 03:54 [place] Rings Not Reportable 03/03/22 03:54 Jackson Cells Not Reportable 03/03/22 03:54 Bite Cells Not Reportable 03/03/22 03:54 Crenated Cell Not Reportable 03/03/22 03:54 Elliptocytes Not Reportable 03/03/22 03:54 Acanthocytes (Spur) Not Reportable 03/03/22 03:54 Rouleaux Not Reportable 03/03/22 03:54 Hemoglobin C Crystals Not Reportable 03/03/22 03:54 Schistocytes Not Reportable 03/03/22 03:54 Malaria parasites Not Reportable 03/03/22 03:54 Cash Bodies Not Reportable 03/03/22 03:54 Hem Pathologist Commnt No 03/03/22 03:54 PT 16.2 Sec. (12.2-14.9) H 03/11/22 04:02 INR 1.16 (0.87-1.13) H 03/11/22 04:02 ABG pH 7.392 pH Units (7.350-7.450) 03/22/22 14:25 ABG pCO2 54.4 mm Hg 03/22/22 14:25 ABG pO2 150.5 mm Hg (80.0-90.0) H 03/22/22 14:25 ABG HCO3 32.4 mmol/L (20.0-26.0) H 03/22/22 14:25 ABG O2 Saturation 98.8 % (95.0-99.0) 03/22/22 14:25 ABG O2 Content 15.8 (0.0-44) 03/22/22 14:25 ABG Base Excess 6.2 mmol/L (-2.0-3.0) H 03/22/22 14:25 ABG Hemoglobin 11.4 gm/dl (14.0-18.0) L 03/22/22 14:25 ABG Carboxyhemoglobin 1.6 % (0.0-5.0) 03/22/22 14:25 ABG Methemoglobin 0.6 % (0.0-1.5) 03/22/22 14:25 Oxyhemoglobin 96.6 % (95.0-99.0) 03/22/22 14:25 FiO2 30 % 03/22/22 14:25 Sodium 136 mmol/L (137-145) L 03/27/22 03:52 Potassium 4.2 mmol/L (3.6-5.0) 03/27/22 03:52 Chloride 98.6 mmol/L (98-107) 03/27/22 03:52 Carbon Dioxide 32 mmol/L (22-30) H 03/27/22 03:52 Anion Gap 10 mmol/L 03/27/22 03:52 BUN 23 mg/dL (9-20) H 03/27/22 03:52 Creatinine 0.6 mg/dL (0.8-1.3) L 03/27/22 03:52 Estimated GFR > 60 ml/min 03/27/22 03:52 BUN/Creatinine Ratio 38 % 03/27/22 03:52 Glucose 98 mg/dL (75-100) 03/27/22 03:52 POC Glucose 99 mg/dL (70-105) 03/30/22 05:08 Lactic Acid 1.20 mmol/L (0.7-2.0) 02/18/22 21:02 Calcium 8.2 mg/dL (8.4-10.2) L 03/27/22 03:52 Phosphorus 3.50 mg/dL (2.5-4.5) 03/20/22 04:09 Magnesium 2.00 mg/dL (1.7-2.3) 03/20/22 04:09 Total Bilirubin 0.30 mg/dL (0.1-1.2) 03/10/22 03:57 AST 17 units/L (5-40) 03/10/22 03:57 ALT 18 units/L (7-56) 03/10/22 03:57 Alkaline Phosphatase 89 units/L (35-129) 03/10/22 03:57 Ammonia 14.0 umol/L (25-60) L 02/18/22 23:22 Troponin T < 0.010 ng/mL (0.00-0.029) 02/18/22 21:02 Total Protein 6.6 g/dL (6.3-8.2) 03/10/22 03:57 Albumin 1.9 g/dL (3.9-5) L 03/10/22 03:57 Albumin/Globulin Ratio 0.4 % 03/10/22 03:57 Urine Color Yellow (Yellow) 03/27/22 08:36 Urine Turbidity Cloudy (Clear) 03/27/22 08:36 Urine pH 7.0 (5.0-7.0) 02/18/22 Unknown Ur Specific Bliss 1.015 (1.003-1.030) 02/18/22 Unknown Specific Bliss (Man) 1.020 (1.003-1.030) 03/27/22 08:36 Urine Protein <15 mg/dl mg/dL (Negative) 02/18/22 Unknown Ur Protein (Man) 1+ mg/dL (Negative) 03/27/22 08:36 Urine Glucose (UA) Negative mg/dL (Negative) 02/18/22 Unknown Urine Ketones Negative mg/dL (Negative) 02/18/22 Unknown Ur Ketones (Man) Negative (Negative) 03/27/22 08:36 Urine Blood Trace (Negative) 02/18/22 Unknown Urine Nitrite Negative (Negative) 02/18/22 Unknown Ur Nitrite (Man) Negative (Negative) 03/27/22 08:36 Ur Reducing Substances Not Reportable 03/27/22 08:36 Urine Bilirubin Negative (Negative) 02/18/22 Unknown Urine Bilirubin (Man) Negative (Negative) 03/27/22 08:36 Urine Ictotest Not Reportable 03/27/22 08:36 Urine Urobilinogen < 2.0 mg/dL (<2.0) 02/18/22 Unknown Ur Leukocyte Esterase Negative (Negative) 02/18/22 Unknown Leukocyte Esterase (Man) Moderate (Negative) 03/27/22 08:36 Urine WBC (Auto) > 182.0 /HPF (0.0-6.0) H 03/27/22 08:36 Urine RBC (Auto) 9.0 /HPF (0.0-6.0) 03/27/22 08:36 U Epithel Cells (Auto) < 1.0 /HPF (0-13.0) 03/27/22 08:36 Urine RBC (Manual) 1+ (Negative) 03/27/22 08:36 Urine Mucus Few /HPF 03/27/22 08:36 Urine Yeast (Budding) 2+ /HPF 03/27/22 08:36 Urine Opiates Screen Negative 02/18/22 Unknown Urine Methadone Screen Negative 02/18/22 Unknown Ur Barbiturates Screen Negative 02/18/22 Unknown Ur Phencyclidine Scrn Negative 02/18/22 Unknown Ur Amphetamines Screen Negative 02/18/22 Unknown U Benzodiazepines Scrn Negative 02/18/22 Unknown Urine Cocaine Screen Negative 02/18/22 Unknown U Marijuana (THC) Screen Negative 02/18/22 Unknown Drugs of Abuse Note Disclamer 02/18/22 Unknown Plasma/Serum Alcohol < 0.01 % (0-0.07) 02/18/22 21:02 Summers/IV: Voiding Method Indwelling Catheter Active Medications - Current Medications Current Medications: Generic Name Dose Route Start Last Admin Trade Name Freq PRN Reason Stop Dose Admin Acetaminophen 650 mg 03/03/22 09:00 Acetaminophen 325 Mg/10.15 Ml Oral Liqd Unit Dose FEEDTUBE Q4H PRN Pain, Mild (1-3); TEMP > 100.4 Albuterol 2.5 mg 03/12/22 20:00 03/30/22 07:16 Albuterol 2.5 Mg/3 Ml Nebu IH 2.5 mg Q6HRT LAZARUS Administration Famotidine 20 mg 02/25/22 10:00 03/30/22 09:29 Famotidine 20 Mg Tab FEEDTUBE 20 mg BID LAZARUS Administration Heparin Sodium (Porcine) 5,000 unit 02/19/22 06:00 03/30/22 05:33 Heparin 5,000 Unit/1 Ml Vial SUB-Q 5,000 unit Q8HR LAZARUS Administration Levetiracetam 500 mg 02/25/22 22:00 03/30/22 09:29 Levetiracetam 500 Mg/5 Ml Oral Liqd FEEDTUBE 500 mg BID LAZARUS Administration Levothyroxine Sodium 25 mcg 02/26/22 06:00 03/30/22 05:33 Levothyroxine 25 Mcg Tab FEEDTUBE 25 mcg QAM@0600 LAZARUS Administration Magnesium Hydroxide 30 ml 02/19/22 02:02 Magnesium Hydroxide (Mom) Oral Liqd Udc PO Q4H PRN Constipation Midodrine 2.5 mg 03/19/22 12:00 03/30/22 07:35 Midodrine 2.5 Mg Tab FEEDTUBE 2.5 mg TID@0800,1200,1600 LAZARUS Administration Multi-Ingred Cream/Lotion/Oil/Oint 1 applic 08/08/22 15:05 Mineral Oil/Petrolatum, White Ophth Oint 3.5 Gm OU Q4HR PRN Dry Eye(s) Ondansetron HCl 4 mg 02/19/22 02:02 Ondansetron 4 Mg/2 Ml Inj IV Q8H PRN Nausea And Vomiting Pravastatin Sodium 40 mg 02/25/22 22:00 03/29/22 21:29 Pravastatin 40 Mg Tab FEEDTUBE 40 mg QHS LAZARUS Administration Senna/Docusate Sodium 1 tab 02/24/22 22:00 03/30/22 09:29 Sennosides/Docusate Sodium 8.6/50 Mg Tab FEEDTUBE 1 tab BID LAZARUS Administration Sodium Chloride 10 ml 02/19/22 10:00 03/30/22 09:30 Sodium Chloride 0.9% 10 Ml Flush Syringe IV 10 ml BID LAZARUS Administration Sodium Chloride 10 ml 02/19/22 02:02 03/03/22 14:21 Sodium Chloride 0.9% 10 Ml Flush Syringe IV 10 ml PRN PRN Administration LINE FLUSH Nutrition/Malnutrition Assess - Dietary Evaluation Nutrition/Malnutrition Findings: Nutrition Notes Start: 02/19/22 14:29 Freq: Status: Active Protocol: Document 03/28/22 16:01 IVAN (Rec: 03/28/22 16:17 IVAN [id number]) Nutrition Notes Initial or Follow up Reassessment Current Diagnosis Hypertension,Respiratory Failure,Hyperlipidemia Other Pertinent Diagnosis Asp pneu, acute encephalopathy , seizure d/o, partial blindness Current Diet TF - Vital AF 1.2 at 50ml/hr Labs/Tests Reviewed Pertinent Medications Reviewed Height 5 ft 3 in Weight 63.2 kg [place] Body Weight (kg) 56.36 BMI 24.7 Weight change and time frame Bed scale still not working Subjective/Other Information Pt remains on vent support; still awaiting decision on guardianship for trach/PEG placement. Pt continues to tolerate TF at goal rate. Last BM was 03/25 per RN verbal report. Pt receiving 100ml water flush q4h now. Per WOCN , sacral wound measuring 8.0 x 6.0 x 0.2; wound bed is 75% pink with 25% yellow slough. RN informed of intent to change TF formula to Promote. Percent of energy/protein needs met: 90% energy 100% pro Burn Absent Trauma Absent #1 Nutrition Diagnosis Inadequate oral intake Diagnosis Progress(for reassessment Continues documentation) Is patient on ventilator? Yes Is Patient Ambulatory and/or Out of Bed No REE-([facility]-confined to bed) [phone] Calculation Used for Recommendations [facility] Additional Notes Pro needs 1.2-2g/k-126g/ day Fluid needs 1ml/kcal Nutrition Intervention Nutrition Support: Change TF formula to Promote at 65ml/hr with 50ml water flush q4h. Kcal 1,560 Protein (gm) 98 Carbohydrates (gm) 203 Fat (gm) 41 Fluid (mL) 1,309 Fiber (gm) 0 Goal #1 TF tolerance Goal #2 TF to meet 75%-100% energy and pro needs Goal #3 Wound healing Follow-Up By: 03/31/22 Additional Comments F/U: TF formula change/ tolerance, BM <SILVIA BUCHANAN - Last Filed: 04/08/22 08:14> History Interval history: I saw and evaluated the patient. Discussed with the nurse practitioner and agree with their findings and plan as documented in this note. Hospitalist Physical - Constitutional Vitals: Temp Pulse Resp BP Pulse Ox 100.1 F H 95 H 14 106/69 100 04/08/22 07:09 04/08/22 08:00 04/08/22 08:00 04/08/22 08:00 04/08/22 08:00 HEART Score - HEART Score Troponin: Troponin T < 0.010 ng/mL (0.00-0.029) 02/18/22 21:02 Results - Labs CBC & Chem 7: 04/07/22 03:55 04/07/22 03:55 Labs: Laboratory Last Values WBC 11.2 K/mm3 (4.5-11.0) H 04/07/22 03:55 RBC 3.55 M/mm3 (3.65-5.03) L 04/07/22 03:55 Hgb 10.8 gm/dl (11.8-15.2) L 04/07/22 03:55 Hct 34.2 % (35.5-45.6) L 04/07/22 03:55 MCV 97 fl (84-94) H 04/07/22 03:55 MCH 30 pg (28-32) 04/07/22 03:55 MCHC 31 % (32-34) L 04/07/22 03:55 RDW 18.6 % (13.2-15.2) H 04/07/22 03:55 Plt Count 352 K/mm3 (140-440) 04/07/22 03:55 Lymph % (Auto) 7.5 % (13.4-35.0) L 03/28/22 04:06 Morgan % (Auto) 10.5 % (0.0-7.3) H 03/28/22 04:06 Eos % (Auto) 0.9 % (0.0-4.3) 03/28/22 04:06 Baso % (Auto) 0.4 % (0.0-1.8) 03/28/22 04:06 Lymph # (Auto) 1.1 K/mm3 (1.2-5.4) L 03/28/22 04:06 Morgan # (Auto) 1.5 K/mm3 (0.0-0.8) H 03/28/22 04:06 Eos # (Auto) 0.1 K/mm3 (0.0-0.4) 03/28/22 04:06 Baso # (Auto) 0.1 K/mm3 (0.0-0.1) 03/28/22 04:06 Add Manual Diff Complete 03/03/22 03:54 Total Counted 100 03/03/22 03:54 Seg Neutrophils % 80.7 % (40.0-70.0) H 03/28/22 04:06 Seg Neuts % (Manual) 95.0 % (40.0-70.0) H 03/03/22 03:54 Band Neutrophils % 0 % 03/03/22 03:54 Lymphocytes % (Manual) 3.0 % (13.4-35.0) L 03/03/22 03:54 Reactive Lymphs % (Man) 0 % 03/03/22 03:54 Monocytes % (Manual) 2.0 % (0.0-7.3) 03/03/22 03:54 Eosinophils % (Manual) 0 % (0.0-4.3) 03/03/22 03:54 Basophils % (Manual) 0 % (0.0-1.8) 03/03/22 03:54 Metamyelocytes % 0 % 03/03/22 03:54 Myelocytes % 0 % 03/03/22 03:54 Promyelocytes % 0 % 03/03/22 03:54 Blast Cells % 0 % 03/03/22 03:54 Nucleated RBC % Not Reportable 03/03/22 03:54 Seg Neutrophils # 11.4 K/mm3 (1.8-7.7) H 03/28/22 04:06 Seg Neutrophils # Man 18.5 K/mm3 (1.8-7.7) H 03/03/22 03:54 Band Neutrophils # 0.0 K/mm3 03/03/22 03:54 Lymphocytes # (Manual) 0.6 K/mm3 (1.2-5.4) L 03/03/22 03:54 Abs React Lymphs (Man) 0.0 K/mm3 03/03/22 03:54 Monocytes # (Manual) 0.4 K/mm3 (0.0-0.8) 03/03/22 03:54 Eosinophils # (Manual) 0.0 K/mm3 (0.0-0.4) 03/03/22 03:54 Basophils # (Manual) 0.0 K/mm3 (0.0-0.1) 03/03/22 03:54 Metamyelocytes # 0.0 K/mm3 03/03/22 03:54 Myelocytes # 0.0 K/mm3 03/03/22 03:54 Promyelocytes # 0.0 K/mm3 03/03/22 03:54 Blast Cells # 0.0 K/mm3 03/03/22 03:54 WBC Morphology Not Reportable 03/03/22 03:54 Hypersegmented Neuts Not Reportable 03/03/22 03:54 Hyposegmented Neuts Not Reportable 03/03/22 03:54 Hypogranular Neuts Not Reportable 03/03/22 03:54 Smudge Cells Not Reportable 03/03/22 03:54 Toxic Granulation Not Reportable 03/03/22 03:54 Toxic Vacuolation Not Reportable 03/03/22 03:54 Dohle Bodies Not Reportable 03/03/22 03:54 Pelger-Huet Anomaly Not Reportable 03/03/22 03:54 Lakshmi Rods Not Reportable 03/03/22 03:54 Platelet Estimate Consistent w auto 03/03/22 03:54 Clumped Platelets Not Reportable 03/03/22 03:54 Plt Clumps, EDTA Not Reportable 03/03/22 03:54 Large Platelets Not Reportable 03/03/22 03:54 Giant Platelets Not Reportable 03/03/22 03:54 Platelet Satelliting Not Reportable 03/03/22 03:54 Plt Morphology Comment Not Reportable 03/03/22 03:54 RBC Morphology Not Reportable 03/03/22 03:54 Dimorphic RBCs Not Reportable 03/03/22 03:54 Polychromasia Not Reportable 03/03/22 03:54 Hypochromasia Not Reportable 03/03/22 03:54 Poikilocytosis Not Reportable 03/03/22 03:54 Anisocytosis 1+ 03/03/22 03:54 Microcytosis Not Reportable 03/03/22 03:54 Macrocytosis Not Reportable 03/03/22 03:54 Spherocytes Not Reportable 03/03/22 03:54 Pappenheimer Bodies Not Reportable 03/03/22 03:54 Sickle Cells Not Reportable 03/03/22 03:54 Target Cells Not Reportable 03/03/22 03:54 Tear Drop Cells Not Reportable 03/03/22 03:54 Ovalocytes Not Reportable 03/03/22 03:54 Helmet Cells Not Reportable 03/03/22 03:54 [place] Bodies Not Reportable 03/03/22 03:54 [place] Rings Not Reportable 03/03/22 03:54 [place] Cells Not Reportable 03/03/22 03:54 Bite Cells Not Reportable 03/03/22 03:54 Crenated Cell Not Reportable 03/03/22 03:54 Elliptocytes Not Reportable 03/03/22 03:54 Acanthocytes (Spur) Not Reportable 03/03/22 03:54 Rouleaux Not Reportable 03/03/22 03:54 Hemoglobin C Crystals Not Reportable 03/03/22 03:54 Schistocytes Not Reportable 03/03/22 03:54 Malaria parasites Not Reportable 03/03/22 03:54 Cash Bodies Not Reportable 03/03/22 03:54 Hem Pathologist Commnt No 03/03/22 03:54 PT 15.0 Sec. (12.2-14.9) H 04/07/22 03:55 INR 1.06 (0.87-1.13) 04/07/22 03:55 APTT 33.4 Sec. (24.2-36.6) 04/06/22 08:47 ABG pH 7.392 pH Units (7.350-7.450) 03/22/22 14:25 ABG pCO2 54.4 mm Hg 03/22/22 14:25 ABG pO2 150.5 mm Hg (80.0-90.0) H 03/22/22 14:25 ABG HCO3 32.4 mmol/L (20.0-26.0) H 03/22/22 14:25 ABG O2 Saturation 98.8 % (95.0-99.0) 03/22/22 14:25 ABG O2 Content 15.8 (0.0-44) 03/22/22 14:25 ABG Base Excess 6.2 mmol/L (-2.0-3.0) H 03/22/22 14:25 ABG Hemoglobin 11.4 gm/dl (14.0-18.0) L 03/22/22 14:25 ABG Carboxyhemoglobin 1.6 % (0.0-5.0) 03/22/22 14:25 ABG Methemoglobin 0.6 % (0.0-1.5) 03/22/22 14:25 Oxyhemoglobin 96.6 % (95.0-99.0) 03/22/22 14:25 FiO2 30 % 03/22/22 14:25 Sodium 137 mmol/L (137-145) 04/07/22 03:55 Potassium 5.0 mmol/L (3.6-5.0) 04/07/22 03:55 Chloride 97.7 mmol/L (98-107) L 04/07/22 03:55 Carbon Dioxide 31 mmol/L (22-30) H 04/07/22 03:55 Anion Gap 13 mmol/L 04/07/22 03:55 BUN 21 mg/dL (9-20) H 04/07/22 03:55 Creatinine 0.6 mg/dL (0.8-1.3) L 04/07/22 03:55 Estimated GFR > 60 ml/min 04/07/22 03:55 BUN/Creatinine Ratio 35 % 04/07/22 03:55 Glucose 94 mg/dL (75-100) 04/07/22 03:55 POC Glucose 139 mg/dL (70-105) H 04/07/22 23:26 Lactic Acid 1.20 mmol/L (0.7-2.0) 02/18/22 21:02 Calcium 8.9 mg/dL (8.4-10.2) 04/07/22 03:55 Phosphorus 4.00 mg/dL (2.5-4.5) 04/07/22 03:55 Magnesium 1.90 mg/dL (1.7-2.3) 04/07/22 03:55 Total Bilirubin 0.30 mg/dL (0.1-1.2) 03/10/22 03:57 AST 17 units/L (5-40) 03/10/22 03:57 ALT 18 units/L (7-56) 03/10/22 03:57 Alkaline Phosphatase 89 units/L (35-129) 03/10/22 03:57 Ammonia 14.0 umol/L (25-60) L 02/18/22 23:22 Troponin T < 0.010 ng/mL (0.00-0.029) 02/18/22 21:02 Total Protein 6.6 g/dL (6.3-8.2) 03/10/22 03:57 Albumin 1.9 g/dL (3.9-5) L 03/10/22 03:57 Albumin/Globulin Ratio 0.4 % 03/10/22 03:57 Urine Color Yellow (Yellow) 03/27/22 08:36 Urine Turbidity Cloudy (Clear) 03/27/22 08:36 Urine pH 7.0 (5.0-7.0) 02/18/22 Unknown Ur Specific Bliss 1.015 (1.003-1.030) 02/18/22 Unknown Specific Bliss (Man) 1.020 (1.003-1.030) 03/27/22 08:36 Urine Protein <15 mg/dl mg/dL (Negative) 02/18/22 Unknown Ur Protein (Man) 1+ mg/dL (Negative) 03/27/22 08:36 Urine Glucose (UA) Negative mg/dL (Negative) 02/18/22 Unknown Urine Ketones Negative mg/dL (Negative) 02/18/22 Unknown Ur Ketones (Man) Negative (Negative) 03/27/22 08:36 Urine Blood Trace (Negative) 02/18/22 Unknown Urine Nitrite Negative (Negative) 02/18/22 Unknown Ur Nitrite (Man) Negative (Negative) 03/27/22 08:36 Ur Reducing Substances Not Reportable 03/27/22 08:36 Urine Bilirubin Negative (Negative) 02/18/22 Unknown Urine Bilirubin (Man) Negative (Negative) 03/27/22 08:36 Urine Ictotest Not Reportable 03/27/22 08:36 Urine Urobilinogen < 2.0 mg/dL (<2.0) 02/18/22 Unknown Ur Leukocyte Esterase Negative (Negative) 02/18/22 Unknown Leukocyte Esterase (Man) Moderate (Negative) 03/27/22 08:36 Urine WBC (Auto) > 182.0 /HPF (0.0-6.0) H 03/27/22 08:36 Urine RBC (Auto) 9.0 /HPF (0.0-6.0) 03/27/22 08:36 U Epithel Cells (Auto) < 1.0 /HPF (0-13.0) 03/27/22 08:36 Urine RBC (Manual) 1+ (Negative) 03/27/22 08:36 Urine Mucus Few /HPF 03/27/22 08:36 Urine Yeast (Budding) 2+ /HPF 03/27/22 08:36 Urine Opiates Screen Negative 02/18/22 Unknown Urine Methadone Screen Negative 02/18/22 Unknown Ur Barbiturates Screen Negative 02/18/22 Unknown Ur Phencyclidine Scrn Negative 02/18/22 Unknown Ur Amphetamines Screen Negative 02/18/22 Unknown U Benzodiazepines Scrn Negative 02/18/22 Unknown Urine Cocaine Screen Negative 02/18/22 Unknown U Marijuana (THC) Screen Negative 02/18/22 Unknown Drugs of Abuse Note Disclamer 02/18/22 Unknown Plasma/Serum Alcohol < 0.01 % (0-0.07) 02/18/22 21:02 Summers/IV: Voiding Method Indwelling Catheter Active Medications - Current Medications Current Medications: Generic Name Dose Route Start Last Admin Trade Name Freq PRN Reason Stop Dose Admin Acetaminophen 650 mg 03/03/22 09:00 Acetaminophen 325 Mg/10.15 Ml Oral Liqd Unit Dose FEEDTUBE Q4H PRN Pain, Mild (1-3); TEMP > 100.4 Albuterol 2.5 mg 03/12/22 20:00 04/08/22 03:39 Albuterol 2.5 Mg/3 Ml Nebu IH 2.5 mg Q6HRT LAZARUS Administration Famotidine 20 mg 02/25/22 10:00 04/07/22 23:07 Famotidine 20 Mg Tab FEEDTUBE 20 mg BID LAZARUS Administration Heparin Sodium (Porcine) 5,000 unit 02/19/22 06:00 04/08/22 06:20 Heparin 5,000 Unit/1 Ml Vial SUB-Q 5,000 unit Q8HR LAZARUS Administration Levetiracetam 500 mg 02/25/22 22:00 04/07/22 23:06 Levetiracetam 500 Mg/5 Ml Oral Liqd FEEDTUBE 500 mg BID LAZARUS Administration Levothyroxine Sodium 25 mcg 02/26/22 06:00 04/08/22 06:20 Levothyroxine 25 Mcg Tab FEEDTUBE 25 mcg QAM@0600 LAZARUS Administration Magnesium Hydroxide 30 ml 02/19/22 02:02 04/03/22 04:14 Magnesium Hydroxide (Mom) Oral Liqd Udc PO 30 ml Q4H PRN Administration Constipation Midodrine 5 mg 04/03/22 12:00 04/07/22 18:24 Midodrine 5 Mg Tab FEEDTUBE 5 mg TID@0800,1200,1600 LAZARUS Administration Multi-Ingred Cream/Lotion/Oil/Oint 1 applic 02/24/22 15:05 Mineral Oil/Petrolatum, White Ophth Oint 3.5 Gm OU Q4HR PRN Dry Eye(s) Ondansetron HCl 4 mg 02/19/22 02:02 Ondansetron 4 Mg/2 Ml Inj IV Q8H PRN Nausea And Vomiting Pravastatin Sodium 40 mg 02/25/22 22:00 04/07/22 23:06 Pravastatin 40 Mg Tab FEEDTUBE 40 mg QHS LAZARUS Administration Senna/Docusate Sodium 1 tab 02/24/22 22:00 04/07/22 23:06 Sennosides/Docusate Sodium 8.6/50 Mg Tab FEEDTUBE 1 tab BID LAZARUS Administration Sodium Chloride 10 ml 02/19/22 10:00 04/07/22 23:07 Sodium Chloride 0.9% 10 Ml Flush Syringe IV 10 ml BID LAZARUS Administration Sodium Chloride 10 ml 02/19/22 02:02 03/03/22 14:21 Sodium Chloride 0.9% 10 Ml Flush Syringe IV 10 ml PRN PRN Administration LINE FLUSH Nutrition/Malnutrition Assess - Dietary Evaluation Nutrition/Malnutrition Findings: Nutrition Notes Start: 02/19/22 14:29 Freq: Status: Active Protocol: Document 04/04/22 13:07 IVAN (Rec: 04/04/22 13:10 ON LICENSE OF [facility] [id number]) Nutrition Notes Initial or Follow up Brief Note Current Diet TF - Promote at 65ml/hr Subjective/Other Information Observed Promote infusing at goal rate of 65ml/hr. Pt tolerating TF at goal rate. BM documented on 04/01 and 04/03 . Pt remains on vent support. Percent of energy/protein needs met: 98% energy 100% pro Nutrition Intervention Follow-Up By: 04/11/22 Additional Comments F/U: stable TF, vent status, trach/PEG placement, BM
--- NOTE | 2022-03-30 11:01 | Progress Note ---
Assessment and Plan 61 y/o male with abnormal CT of chest. 03/30/22: Day 34 of intubation. No labs today. Monitor fever as he had low grade temp early am. Rocephin finished yesterday. 03/29/22: Day 33 of intubation. WC now normal. No fever. Hard stop date on the abx. Awaiting Hospital and Court about guardianship. 03/28/22: Day 32 of intubation. WBC better. No fever. Still awaiting hospital and courts. 03/27/22: Day 31 of intubation. Given increase in WBC will treat empirically with Rocephin. Follow up urine cultures. CXR appears stable, await official read. Guarded prognosis. 03/26/22: Day 30 of Intubation. Daily PSV trials. no new recommendations. 03/25/22: Day 29 of intubation. RT to try PSV this am, hesistant given low sats but improved with suctioning. Still no word from the hospital in regards to guardianship. I do not feel comfortable with attempting extubation again on this patient given his quick failure and difficult re-intubation. 03/24/22: Day 28 of intubation. reviewed my partners notes from the weekend. Glad patient is tolerating PSV however do not see conventional extubation in the near future given patient's mental status and how fast he failed extubation (within an hour) on his first attempt. Patient was also a difficult re- intubation. Follow up with CM and hospital tomorrow. Continue supportive measures. 03/21/22: Day 25 of intubation. No new updates from the hospital about guardianship. Wound care saw on yesterday. Continue daily PSV trials as tolerated. Guarded prognosis. 03/20/22: Day 24 of intubation. No new recommendations. Still awaiting hospital update in regards to guardianship so that decisions can be made. Continue supportive measures. Wound care to see today. 03/19/22: Day 23 of intubation. Prognosis is still guarded. Will discuss with RT about attempts at daily PSV trials. Per notes, Wound care to see , wound was present on admission. 03/18/22: Day 22 of intubation. Prognosis remains guarded. Not able to obtain trach and peg with consent. Continue daily PSV trials as tolerated. 03/17/22: Day 21 of intubation. Still awaiting some form of decision maker for trach and peg placement. Guarded prognosis. 03/16/22: Day 20 of intubation. BP stable. Continue midodrine. Awaiting emergency guardianship from Court to obtain consent for trach and peg. Guarded prognosis. 03/15/22: Day 19 of intubation. BP now is marginal more regularly. Will give an additional liter bolus of LR now. May need to increase Midodrine back to 5. Needs trach in order to be safely weaned from ventilator. Will need peg tube placement in addition to trach. Prognosis remains guarded. Continue PSV trials as tolerated. 03/14/22: Day 18 of intubation. Vitals stable and mental status is unchanged. Still in need of tracheostomy as well as peg tube placement. No guardian appointed yet. 03/13/22: Day 17 of intubation. Agree with bolus and restarting of midodrine. was stopped previously secondary to bradycardia. If patient spikes temp, will culture blood and urine and repeat CXR. Continue daily PSV trials to assess ability for vent liberation. Continues to need trach however no family/guardian to provide consent. Guarded prognosis. 03/12/22: Day 16 of intubation. Following up with hospital in regards to guardian. Continue supportive measures. Guarded prognosis. 03/11/22: hospital now attempting to find emergency guardian to have consent for trach as ethics committee cannot comment on this matter so unable to help. Until then will remain intubated orally. Failed PSV yesterday, will continue to attempt on daily basis. Unfortunate situation. Guarded prognosis. 03/10/22: Today nuñez day 14 of intubation. Given patient's mental state and increased risk of aspiration, the likelihood of conventional extubation with success is very very slim and the patient has already failed this in an extremely short period of time (less than 1 hour). I suspect that he will fail again if tried and could create more difficult reintubation as he was a difficult reintubation on his failed extubation attempt. To prevent further decline and potential complications of prolonged mechanical ventilation, will discuss with ethics and the hospital to use 2 physician consent to obtain trach and peg for this patient with hopes of liberating him from the mechanical ventilator. he has very minimal vent requirements but as been stated several ti mes above, he continues to aspirate and failed conventional extubation almost immediately. Will consult surgery today. Dr. Mancia is prepared to sign consent as well as myself. Hopeful surgery will be on board with this. Continue supportive care for now. Attempt daily PSV trials. 03/07/22: Daily PSV trials as tolerated. Still no one to step up as adult friend. patient has now been intubated since 02/24/22 and is approaching the time period in which prolonged mechanical ventilation could lead to significant complications that could be detrimental to health (infection, stenosis, malacia etc). Will discuss again with ethics but in regards to medical necessity, may need to consider two physician consent if no one is able to claim responsibility for this patient. He is a full code and we must work in his best interest to prevent further harm. Continue supportive measures but he is not a candidate for conventional extubation given his mental state, despite being on minimal support. He has already failed this before. 03/06/22: PSV trials daily. Will discuss with RT. Spoke with ethics. Plan in place and awaiting on news from [facility] and [facility]. Continue supportive measures. Patient has been intubated since 02/24/22 and is approaching the 2 week shadi of intubation will need to make decisions soon to avoid unnecessary complications related to prolonged intubation. 03/05/22: Will follow up with ethics today. Awaiting some guidance about consent for trach and peg. This is a medical necessity to liberate patient from mechanical ventilation. Continue supportive measures. Ok with daily PSV trials 03/04/22: Follow up with ethics later this afternoon. Spoke with RT and patient does have cuff leak, will stop steroids. Stopping midodrine as BP is stable and bradycardia likely from this. 03/03/22: Await ethics eval. CM has spoken with state as well. Daily cuff le aks. Will start to wean steroids tomorrow. Midodrine can cause bradycardia. If continues or worsens will stop. Guarded prognosis. 03/02/22: Continue supportive measures. Await ethics consult before surgery consult for trach and peg. no further need for fluid boluses. Will continue stress dose steroids but have daily air leak checks by RT. Still will need trach, will not attempt extubation again. Guarded prognosis. 03/01/22: Patient is having increased urine output. This could be the cause of new onset hypotension. Will bolus 2 more liters of LR now and reassess. If this continues may need to work up for SIADH including repeat head CT. Follow up ethics review of case. Will need trach for ventilator liberation. Overall prognosis remains guarded. 02/28/22: Will obtain CT neck, noncontrast to look for airway edema or other possible etiologies for failure. Needs ethics consult as given patient's mental state, inability to clear secretions appropriately, will need trach now that he has failed extubation. However he has no family and no POA so no one to give consent. Continue supportive measures. Guarded prognosis. 02/27/22: Continue improvement of oxygenation. Will drop PEEP down today with goal of being at 6 by in the morning. Will repeat CT scan to confirm im provement as no endobronchial lesion was seen, but also to make sure no parenchymal mass. There was no evidence of extrinsic compression during bronch. Likely extubation tomorrow post CT. 02/26/22: Repeat CXR now. Wean Vent as tolerated. Hopeful extubation soon. Mucous removed. NO ENDOBRONCHIAL LESION/MASS 02/25/22: Bronch tentatively planned for tomorrow with therapeutic scope. Awaiting GI lab to give a time. NPO after midnight. Continue high PEEP 02/24/22: WIll attempt to bronch tomorrow morning. NPO after midnight. Just received word from GI lab they are not able to do bronch tomorrow. Cancel NPO order. Continue to feed patient. Repeat ABG in AM along with CXR. 02/21/22: No new pulm recs for today. Please obtain repeat CXR likely on Thursday. If patient happens to get worse, likely not a candidate for bipap given his weak cough and mental state and inability to communicate. If worsens and requires intubation, will bronch then under emergent circumstances if no POA or family is able to be located. Continue CPT. Will discuss with RT about NT suctioning. 02/20/22: Saw speech while on the floor. Would like patient to be NPO now. Discussed with nurse on floor and with IMS. Same recs pulm way as yesterday. Would benefit from bronch if able to get consent as this is not emergent. Continue CPT and q shift NT suctioning. Reviewed admission in the past and of note, patient was recently admitted last month and had a CXR done on the 29 of January that was normal. Given this patient's medical history and the history that I obtained from the nursing staff that at the [place] he was eating solid foods, I suspect that this is aspirat ion, possibly of a foreign body (most likely food) with atelectasis of the right lower lobe. It is highly unlikely that a mass evolved in size in less than a months time and patient, besides age, has no real risk factors for lung carcinoma. Discussed with the nurse and unfortunately there is no identifiable person that is able to give consent. Bronchoscopy is needed in the case to evaluate to see if lung mass is there vs foreign body, but at this time not able to do. In the meanwhile will recommend the following. 1. Will order CPT with neb therapy 3x daily 2. Suggest maybe NT suctioning q shift. May use nasal trumpet, however do not leave this device in the patient 3. Aspiration precautions 4. Consider speech eval to assess swallowing. Will continue to follow. CCT 31 minutes. Subjective Date of service: 03/30/22 Principal diagnosis: f/u Acute respiratory failure Interval history: No acute events. 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 Signs - 12hr 03/29/22 03/29/22 03/29/22 23:15 23:21 23:22 Temperature Pulse Rate 75 76 Pulse Rate [ Anterior Bilateral Throughout] Pulse Rate [ 76 From Monitor] Respiratory 15 18 Rate Respiratory Rate [Anterior Bilateral Throughout] Blood Pressure 102/56 O2 Sat by Pulse 99 94 Oximetry 03/29/22 03/30/22 03/30/22 23:51 00:00 01:00 Temperature 100.1 F H Pulse Rate 91 H 88 94 H Pulse Rate [ Anterior Bilateral Throughout] Pulse Rate [ From Monitor] Respiratory 19 15 Rate Respiratory Rate [Anterior Bilateral Throughout] Blood Pressure 102/56 119/59 109/54 O2 Sat by Pulse 99 97 95 Oximetry 03/30/22 03/30/22 03/30/22 02:00 02:06 03:00 Temperature Pulse Rate 93 H 97 H Pulse Rate [ 95 H Anterior Bilateral Throughout] Pulse Rate [ From Monitor] Respiratory 20 18 Rate Respiratory 20 Rate [Anterior Bilateral Throughout] Blood Pressure 116/62 110/59 O2 Sat by Pulse 95 95 Oximetry 03/30/22 03/30/22 03/30/22 03:03 03:04 04:00 Temperature 98.3 F Pulse Rate 96 H 79 Pulse Rate [ Anterior Bilateral Throughout] Pulse Rate [ 96 H From Monitor] Respiratory 17 13 Rate Respiratory Rate [Anterior Bilateral Throughout] Blood Pressure 97/56 O2 Sat by Pulse 94 97 Oximetry 03/30/22 03/30/22 03/30/22 04:33 05:00 06:00 Temperature Pulse Rate 71 82 74 Pulse Rate [ Anterior Bilateral Throughout] Pulse Rate [ From Monitor] Respiratory 15 14 Rate Respiratory Rate [Anterior Bilateral Throughout] Blood Pressure 97/56 139/85 99/46 O2 Sat by Pulse 99 99 98 Oximetry 03/30/22 03/30/22 03/30/22 07:00 07:16 07:53 Temperature 97.9 F Pulse Rate 75 98 H Pulse Rate [ 99 H Anterior Bilateral Throughout] Pulse Rate [ From Monitor] Respiratory 13 Rate Respiratory 19 Rate [Anterior Bilateral Throughout] Blood Pressure 101/53 105/67 O2 Sat by Pulse 94 98 Oximetry 03/30/22 03/30/22 03/30/22 08:00 09:00 10:00 Temperature 97.9 F Pulse Rate 102 H 101 H 100 H Pulse Rate [ Anterior Bilateral Throughout] Pulse Rate [ 101 H From Monitor] Respiratory 20 24 20 Rate Respiratory Rate [Anterior Bilateral Throughout] Blood Pressure 117/63 115/67 105/67 O2 Sat by Pulse 94 94 96 Oximetry Constitutional: alert, other (critically ill on ventilator) Eyes: non-icteric ENT: oropharynx moist Neck: supple Effort: normal Ascultation: Bilateral: diminished breath sounds, rhonchi Cardiovascular: regular rate and rhythm (no mrg) Gastrointestinal: normoactive bowel sounds, soft, non-tender (on o2 vest in place), non-distended Integumentary: normal Extremities: no cyanosis, no edema Neurologic: other (awake) Psychiatric: other (unable to assess) CBC and BMP: 03/29/22 04:22 03/27/22 03:52 ABG, PT/INR, D-dimer: ABG ABG pH 7.392 pH Units (7.350-7.450) 03/22/22 14:25 ABG pCO2 54.4 mm Hg 03/22/22 14:25 ABG pO2 150.5 mm Hg (80.0-90.0) H 03/22/22 14:25 ABG O2 Saturation 98.8 % (95.0-99.0) 03/22/22 14:25 PT/INR, D-dimer PT 16.2 Sec. (12.2-14.9) H 03/11/22 04:02 INR 1.16 (0.87-1.13) H 03/11/22 04:02 Abnormal lab findings: Abnormal Labs 02/18/22 02/18/22 02/18/22 19:34 21:02 21:02 WBC RBC Hgb Hct MCV 101 H MCH 34 H MCHC RDW 16.1 H Lymph % (Auto) Banks % (Auto) 12.4 H Lymph # (Auto) Banks # (Auto) 1.2 H Seg Neutrophils % 73.0 H Seg Neuts % (Manual) Lymphocytes % (Manual) Seg Neutrophils # Seg Neutrophils # Man Lymphocytes # (Manual) PT 16.9 H INR 1.20 H ABG pH ABG pO2 ABG HCO3 ABG O2 Saturation ABG Base Excess ABG Hemoglobin Oxyhemoglobin Sodium Potassium Chloride Carbon Dioxide BUN Creatinine Glucose POC Glucose 116 H Calcium Phosphorus AST ALT Ammonia Albumin Urine WBC (Auto) 02/18/22 02/18/22 02/18/22 21:02 22:45 23:22 WBC RBC Hgb Hct MCV MCH MCHC RDW Lymph % (Auto) Banks % (Auto) Lymph # (Auto) Banks # (Auto) Seg Neutrophils % Seg Neuts % (Manual) Lymphocytes % (Manual) Seg Neutrophils # Seg Neutrophils # Man Lymphocytes # (Manual) PT INR ABG pH ABG pO2 55.6 L ABG HCO3 28.4 H ABG O2 Saturation 91.5 L ABG Base Excess 3.8 H ABG Hemoglobin 13.2 L Oxyhemoglobin 89.6 L Sodium Potassium 5.1 H Chloride Carbon Dioxide BUN Creatinine Glucose 102 H POC Glucose Calcium Phosphorus AST 48 H ALT 64 H Ammonia 14.0 L Albumin 2.7 L Urine WBC (Auto) 02/20/22 02/20/22 02/23/22 04:59 04:59 06:29 WBC 11.4 H RBC Hgb Hct MCV 103 H MCH 33 H MCHC RDW 16.5 H Lymph % (Auto) 5.5 L Banks % (Auto) 12.1 H Lymph # (Auto) 0.6 L Banks # (Auto) 1.4 H Seg Neutrophils % 81.4 H Seg Neuts % (Manual) Lymphocytes % (Manual) Seg Neutrophils # 9.2 H Seg Neutrophils # Man Lymphocytes # (Manual) PT INR ABG pH ABG pO2 ABG HCO3 ABG O2 Saturation ABG Base Excess ABG Hemoglobin Oxyhemoglobin Sodium Potassium Chloride Carbon Dioxide BUN Creatinine Glucose POC Glucose 113 H Calcium 8.2 L Phosphorus AST ALT Ammonia Albumin Urine WBC (Auto) 02/23/22 02/23/22 02/24/22 11:22 16:10 00:02 WBC RBC Hgb Hct MCV MCH MCHC RDW Lymph % (Auto) Banks % (Auto) Lymph # (Auto) Banks # (Auto) Seg Neutrophils % Seg Neuts % (Manual) Lymphocytes % (Manual) Seg Neutrophils # Seg Neutrophils # Man Lymphocytes # (Manual) PT INR ABG pH ABG pO2 ABG HCO3 ABG O2 Saturation ABG Base Excess ABG Hemoglobin Oxyhemoglobin Sodium Potassium Chloride Carbon Dioxide BUN Creatinine Glucose POC Glucose 108 H 115 H 109 H Calcium Phosphorus AST ALT Ammonia Albumin Urine WBC (Auto) 02/24/22 02/24/22 02/24/22 11:05 11:05 13:20 WBC RBC 3.55 L Hgb Hct MCV 100 H MCH 34 H MCHC RDW 15.6 H Lymph % (Auto) Banks % (Auto) Lymph # (Auto) Banks # (Auto) Seg Neutrophils % Seg Neuts % (Manual) Lymphocytes % (Manual) Seg Neutrophils # Seg Neutrophils # Man Lymphocytes # (Manual) PT INR ABG pH ABG pO2 ABG HCO3 ABG O2 Saturation ABG Base Excess ABG Hemoglobin Oxyhemoglobin Sodium 146 H Potassium 3.2 L D Chloride 108.4 H Carbon Dioxide BUN Creatinine 0.5 L Glucose POC Glucose 111 H Calcium 7.9 L Phosphorus 2.20 L AST ALT Ammonia Albumin Urine WBC (Auto) 02/24/22 02/24/22 02/24/22 16:30 17:03 20:25 WBC RBC Hgb Hct MCV MCH MCHC RDW Lymph % (Auto) Banks % (Auto) Lymph # (Auto) Banks # (Auto) Seg Neutrophils % Seg Neuts % (Manual) Lymphocytes % (Manual) Seg Neutrophils # Seg Neutrophils # Man Lymphocytes # (Manual) PT INR ABG pH 7.319 L ABG pO2 65.3 L ABG HCO3 31.3 H ABG O2 Saturation 92.2 L ABG Base Excess 3.8 H ABG Hemoglobin 12.0 L Oxyhemoglobin 90.3 L Sodium Potassium Chloride 107.9 H Carbon Dioxide BUN 8 L Creatinine 0.4 L Glucose POC Glucose 108 H Calcium 7.6 L Phosphorus 4.60 H D AST ALT Ammonia Albumin Urine WBC (Auto) 02/25/22 02/25/22 02/25/22 04:12 04:12 05:05 WBC RBC 3.07 L Hgb 10.2 L Hct 31.5 L MCV 103 H MCH 33 H MCHC RDW 15.6 H Lymph % (Auto) Banks % (Auto) Lymph # (Auto) Banks # (Auto) Seg Neutrophils % Seg Neuts % (Manual) Lymphocytes % (Manual) Seg Neutrophils # Seg Neutrophils # Man Lymphocytes # (Manual) PT INR ABG pH ABG pO2 ABG HCO3 32.5 H ABG O2 Saturation ABG Base Excess 5.6 H ABG Hemoglobin 10.8 L Oxyhemoglobin 94.8 L Sodium Potassium 3.5 L Chloride 107.7 H Carbon Dioxide BUN Creatinine 0.5 L Glucose POC Glucose Calcium 7.0 L Phosphorus AST ALT Ammonia Albumin Urine WBC (Auto) 02/25/22 02/25/22 02/26/22 12:05 18:33 00:07 WBC RBC Hgb Hct MCV MCH MCHC RDW Lymph % (Auto) Banks % (Auto) Lymph # (Auto) Banks # (Auto) Seg Neutrophils % Seg Neuts % (Manual) Lymphocytes % (Manual) Seg Neutrophils # Seg Neutrophils # Man Lymphocytes # (Manual) PT INR ABG pH ABG pO2 ABG HCO3 ABG O2 Saturation ABG Base Excess ABG Hemoglobin Oxyhemoglobin Sodium Potassium Chloride Carbon Dioxide BUN Creatinine Glucose POC Glucose 127 H 125 H 114 H Calcium Phosphorus AST ALT Ammonia Albumin Urine WBC (Auto) 02/26/22 02/26/22 02/26/22 03:30 04:42 11:34 WBC RBC Hgb Hct MCV MCH MCHC RDW Lymph % (Auto) Banks % (Auto) Lymph # (Auto) Banks # (Auto) Seg Neutrophils % Seg Neuts % (Manual) Lymphocytes % (Manual) Seg Neutrophils # Seg Neutrophils # Man Lymphocytes # (Manual) PT INR ABG pH ABG pO2 143.2 H ABG HCO3 33.2 H ABG O2 Saturation ABG Base Excess 6.5 H ABG Hemoglobin 9.4 L Oxyhemoglobin Sodium Potassium Chloride Carbon Dioxide 32 H BUN Creatinine 0.7 L Glucose POC Glucose 114 H Calcium 8.0 L Phosphorus AST ALT Ammonia Albumin Urine WBC (Auto) 02/26/22 02/26/22 02/27/22 18:17 23:37 04:19 WBC 13.7 H RBC 2.78 L Hgb 9.3 L Hct 28.5 L MCV 103 H MCH 33 H MCHC RDW 16.3 H Lymph % (Auto) Banks % (Auto) Lymph # (Auto) Banks # (Auto) Seg Neutrophils % Seg Neuts % (Manual) Lymphocytes % (Manual) Seg Neutrophils # Seg Neutrophils # Man Lymphocytes # (Manual) PT INR ABG pH ABG pO2 ABG HCO3 ABG O2 Saturation ABG Base Excess ABG Hemoglobin Oxyhemoglobin Sodium Potassium Chloride Carbon Dioxide BUN Creatinine Glucose POC Glucose 111 H 117 H Calcium Phosphorus AST ALT Ammonia Albumin Urine WBC (Auto) 02/27/22 02/27/22 02/27/22 04:19 04:35 05:27 WBC RBC Hgb Hct MCV MCH MCHC RDW Lymph % (Auto) Banks % (Auto) Lymph # (Auto) Banks # (Auto) Seg Neutrophils % Seg Neuts % (Manual) Lymphocytes % (Manual) Seg Neutrophils # Seg Neutrophils # Man Lymphocytes # (Manual) PT INR ABG pH ABG pO2 96.3 H ABG HCO3 34.9 H ABG O2 Saturation ABG Base Excess 8.1 H ABG Hemoglobin Oxyhemoglobin Sodium Potassium Chloride Carbon Dioxide 31 H BUN Creatinine 0.6 L Glucose 107 H POC Glucose 133 H Calcium 7.8 L Phosphorus AST ALT Ammonia Albumin Urine WBC (Auto) 02/27/22 02/27/22 02/28/22 11:15 23:35 03:38 WBC 13.3 H RBC 3.05 L Hgb 10.2 L Hct 30.7 L MCV 101 H MCH 33 H MCHC RDW 16.1 H Lymph % (Auto) Banks % (Auto) Lymph # (Auto) Banks # (Auto) Seg Neutrophils % Seg Neuts % (Manual) Lymphocytes % (Manual) Seg Neutrophils # Seg Neutrophils # Man Lymphocytes # (Manual) PT INR ABG pH ABG pO2 ABG HCO3 ABG O2 Saturation ABG Base Excess ABG Hemoglobin Oxyhemoglobin Sodium Potassium Chloride Carbon Dioxide BUN Creatinine Glucose POC Glucose 129 H 122 H Calcium Phosphorus AST ALT Ammonia Albumin Urine WBC (Auto) 02/28/22 02/28/22 02/28/22 04:50 05:30 09:30 WBC RBC Hgb Hct MCV MCH MCHC RDW Lymph % (Auto) Banks % (Auto) Lymph # (Auto) Banks # (Auto) Seg Neutrophils % Seg Neuts % (Manual) Lymphocytes % (Manual) Seg Neutrophils # Seg Neutrophils # Man Lymphocytes # (Manual) PT INR ABG pH 7.451 H 7.488 H ABG pO2 77.0 L ABG HCO3 37.1 H 34.6 H ABG O2 Saturation ABG Base Excess 11.5 H 10.1 H ABG Hemoglobin 10.1 L 10.0 L Oxyhemoglobin Sodium Potassium Chloride Carbon Dioxide BUN Creatinine Glucose POC Glucose 121 H Calcium Phosphorus AST ALT Ammonia Albumin Urine WBC (Auto) 02/28/22 02/28/22 03/01/22 11:36 23:07 04:27 WBC 12.5 H RBC 2.85 L Hgb 9.5 L Hct 28.6 L MCV 101 H MCH 33 H MCHC RDW 15.7 H Lymph % (Auto) Banks % (Auto) Lymph # (Auto) Banks # (Auto) Seg Neutrophils % Seg Neuts % (Manual) Lymphocytes % (Manual) Seg Neutrophils # Seg Neutrophils # Man Lymphocytes # (Manual) PT INR ABG pH ABG pO2 ABG HCO3 ABG O2 Saturation ABG Base Excess ABG Hemoglobin Oxyhemoglobin Sodium Potassium Chloride Carbon Dioxide BUN Creatinine Glucose POC Glucose 112 H 107 H Calcium Phosphorus AST ALT Ammonia Albumin Urine WBC (Auto) 03/01/22 03/01/22 03/01/22 04:27 05:05 11:29 WBC RBC Hgb Hct MCV MCH MCHC RDW Lymph % (Auto) Banks % (Auto) Lymph # (Auto) Banks # (Auto) Seg Neutrophils % Seg Neuts % (Manual) Lymphocytes % (Manual) Seg Neutrophils # Seg Neutrophils # Man Lymphocytes # (Manual) PT INR ABG pH ABG pO2 ABG HCO3 ABG O2 Saturation ABG Base Excess ABG Hemoglobin Oxyhemoglobin Sodium 147 H D Potassium Chloride Carbon Dioxide 34 H BUN Creatinine 0.6 L Glucose 128 H POC Glucose 119 H 121 H Calcium 7.9 L Phosphorus AST ALT Ammonia Albumin Urine WBC (Auto) 03/01/22 03/01/22 03/02/22 16:15 23:57 05:18 WBC RBC Hgb Hct MCV MCH MCHC RDW Lymph % (Auto) Banks % (Auto) Lymph # (Auto) Banks # (Auto) Seg Neutrophils % Seg Neuts % (Manual) Lymphocytes % (Manual) Seg Neutrophils # Seg Neutrophils # Man Lymphocytes # (Manual) PT INR ABG pH ABG pO2 110.5 H ABG HCO3 33.0 H ABG O2 Saturation ABG Base Excess 7.4 H ABG Hemoglobin 8.6 L Oxyhemoglobin Sodium Potassium Chloride Carbon Dioxide BUN Creatinine Glucose POC Glucose 134 H 140 H Calcium Phosphorus AST ALT Ammonia Albumin Urine WBC (Auto) 03/02/22 03/02/22 03/02/22 05:53 09:04 09:04 WBC 15.0 H RBC 3.00 L Hgb 9.7 L Hct 30.7 L MCV 102 H MCH MCHC RDW 16.6 H Lymph % (Auto) Banks % (Auto) Lymph # (Auto) Banks # (Auto) Seg Neutrophils % Seg Neuts % (Manual) Lymphocytes % (Manual) Seg Neutrophils # Seg Neutrophils # Man Lymphocytes # (Manual) PT INR ABG pH ABG pO2 ABG HCO3 ABG O2 Saturation ABG Base Excess ABG Hemoglobin Oxyhemoglobin Sodium Potassium Chloride Carbon Dioxide 31 H BUN Creatinine 0.6 L Glucose 157 H POC Glucose 158 H Calcium 7.9 L Phosphorus AST ALT Ammonia Albumin Urine WBC (Auto) 03/02/22 03/02/22 03/02/22 11:36 16:25 23:17 WBC RBC Hgb Hct MCV MCH MCHC RDW Lymph % (Auto) Banks % (Auto) Lymph # (Auto) Banks # (Auto) Seg Neutrophils % Seg Neuts % (Manual) Lymphocytes % (Manual) Seg Neutrophils # Seg Neutrophils # Man Lymphocytes # (Manual) PT INR ABG pH ABG pO2 ABG HCO3 ABG O2 Saturation ABG Base Excess ABG Hemoglobin Oxyhemoglobin Sodium Potassium Chloride Carbon Dioxide BUN Creatinine Glucose POC Glucose 160 H 132 H 157 H Calcium Phosphorus AST ALT Ammonia Albumin Urine WBC (Auto) 03/03/22 03/03/22 03/03/22 03:54 03:54 05:27 WBC 19.5 H RBC 2.79 L Hgb 9.0 L Hct 28.6 L MCV 102 H MCH MCHC RDW 16.2 H Lymph % (Auto) Banks % (Auto) Lymph # (Auto) Banks # (Auto) Seg Neutrophils % Seg Neuts % (Manual) 95.0 H Lymphocytes % (Manual) 3.0 L Seg Neutrophils # Seg Neutrophils # Man 18.5 H Lymphocytes # (Manual) 0.6 L PT INR ABG pH ABG pO2 ABG HCO3 ABG O2 Saturation ABG Base Excess ABG Hemoglobin Oxyhemoglobin Sodium Potassium Chloride Carbon Dioxide BUN Creatinine 0.6 L Glucose 130 H POC Glucose 149 H Calcium 8.1 L Phosphorus AST ALT Ammonia Albumin Urine WBC (Auto) 03/03/22 03/03/22 03/04/22 11:13 17:30 00:02 WBC RBC Hgb Hct MCV MCH MCHC RDW Lymph % (Auto) Banks % (Auto) Lymph # (Auto) Banks # (Auto) Seg Neutrophils % Seg Neuts % (Manual) Lymphocytes % (Manual) Seg Neutrophils # Seg Neutrophils # Man Lymphocytes # (Manual) PT INR ABG pH ABG pO2 ABG HCO3 ABG O2 Saturation ABG Base Excess ABG Hemoglobin Oxyhemoglobin Sodium Potassium Chloride Carbon Dioxide BUN Creatinine Glucose POC Glucose 139 H 138 H 157 H Calcium Phosphorus AST ALT Ammonia Albumin Urine WBC (Auto) 03/04/22 03/04/22 03/04/22 05:32 05:32 05:48 WBC 16.1 H RBC 2.81 L Hgb 9.3 L Hct 28.8 L MCV 102 H MCH 33 H MCHC RDW 16.7 H Lymph % (Auto) Banks % (Auto) Lymph # (Auto) Banks # (Auto) Seg Neutrophils % Seg Neuts % (Manual) Lymphocytes % (Manual) Seg Neutrophils # Seg Neutrophils # Man Lymphocytes # (Manual) PT INR ABG pH ABG pO2 ABG HCO3 ABG O2 Saturation ABG Base Excess ABG Hemoglobin Oxyhemoglobin Sodium Potassium Chloride Carbon Dioxide BUN Creatinine 0.7 L Glucose 135 H POC Glucose 145 H Calcium 8.3 L Phosphorus AST ALT Ammonia Albumin Urine WBC (Auto) 03/04/22 03/04/22 03/05/22 11:34 16:29 00:28 WBC RBC Hgb Hct MCV MCH MCHC RDW Lymph % (Auto) Banks % (Auto) Lymph # (Auto) Banks # (Auto) Seg Neutrophils % Seg Neuts % (Manual) Lymphocytes % (Manual) Seg Neutrophils # Seg Neutrophils # Man Lymphocytes # (Manual) PT INR ABG pH ABG pO2 ABG HCO3 ABG O2 Saturation ABG Base Excess ABG Hemoglobin Oxyhemoglobin Sodium Potassium Chloride Carbon Dioxide BUN Creatinine Glucose POC Glucose 148 H 140 H 116 H Calcium Phosphorus AST ALT Ammonia Albumin Urine WBC (Auto) 03/05/22 03/05/22 03/05/22 06:29 11:30 17:38 WBC RBC Hgb Hct MCV MCH MCHC RDW Lymph % (Auto) Banks % (Auto) Lymph # (Auto) Banks # (Auto) Seg Neutrophils % Seg Neuts % (Manual) Lymphocytes % (Manual) Seg Neutrophils # Seg Neutrophils # Man Lymphocytes # (Manual) PT INR ABG pH ABG pO2 ABG HCO3 ABG O2 Saturation ABG Base Excess ABG Hemoglobin Oxyhemoglobin Sodium Potassium Chloride Carbon Dioxide BUN Creatinine Glucose POC Glucose 114 H 114 H 117 H Calcium Phosphorus AST ALT Ammonia Albumin Urine WBC (Auto) 03/06/22 03/06/22 03/06/22 04:17 04:17 06:06 WBC 13.4 H RBC 2.85 L Hgb 9.4 L Hct 29.0 L MCV 102 H MCH 33 H MCHC RDW 16.4 H Lymph % (Auto) Banks % (Auto) Lymph # (Auto) Banks # (Auto) Seg Neutrophils % Seg Neuts % (Manual) Lymphocytes % (Manual) Seg Neutrophils # Seg Neutrophils # Man Lymphocytes # (Manual) PT INR ABG pH ABG pO2 ABG HCO3 ABG O2 Saturation ABG Base Excess ABG Hemoglobin Oxyhemoglobin Sodium Potassium 3.5 L Chloride Carbon Dioxide 31 H BUN Creatinine 0.6 L Glucose 101 H POC Glucose 106 H Calcium 7.7 L Phosphorus 2.00 L AST ALT Ammonia Albumin Urine WBC (Auto) 03/06/22 03/06/22 03/07/22 18:04 23:50 05:14 WBC RBC Hgb Hct MCV MCH MCHC RDW Lymph % (Auto) Banks % (Auto) Lymph # (Auto) Banks # (Auto) Seg Neutrophils % Seg Neuts % (Manual) Lymphocytes % (Manual) Seg Neutrophils # Seg Neutrophils # Man Lymphocytes # (Manual) PT INR ABG pH ABG pO2 ABG HCO3 ABG O2 Saturation ABG Base Excess ABG Hemoglobin Oxyhemoglobin Sodium Potassium Chloride Carbon Dioxide BUN Creatinine Glucose POC Glucose 108 H 115 H 116 H Calcium Phosphorus AST ALT Ammonia Albumin Urine WBC (Auto) 03/07/22 03/07/22 03/08/22 11:42 18:13 04:34 WBC RBC 2.86 L Hgb 9.2 L Hct 29.3 L MCV 103 H MCH MCHC 31 L RDW 16.9 H Lymph % (Auto) Banks % (Auto) Lymph # (Auto) Banks # (Auto) Seg Neutrophils % Seg Neuts % (Manual) Lymphocytes % (Manual) Seg Neutrophils # Seg Neutrophils # Man Lymphocytes # (Manual) PT INR ABG pH ABG pO2 ABG HCO3 ABG O2 Saturation ABG Base Excess ABG Hemoglobin Oxyhemoglobin Sodium Potassium Chloride Carbon Dioxide BUN Creatinine Glucose POC Glucose 123 H 109 H Calcium Phosphorus AST ALT Ammonia Albumin Urine WBC (Auto) 03/08/22 03/08/22 03/08/22 04:34 11:29 16:34 WBC RBC Hgb Hct MCV MCH MCHC RDW Lymph % (Auto) Banks % (Auto) Lymph # (Auto) Banks # (Auto) Seg Neutrophils % Seg Neuts % (Manual) Lymphocytes % (Manual) Seg Neutrophils # Seg Neutrophils # Man Lymphocytes # (Manual) PT INR ABG pH ABG pO2 ABG HCO3 ABG O2 Saturation ABG Base Excess ABG Hemoglobin Oxyhemoglobin Sodium Potassium Chloride Carbon Dioxide 33 H BUN Creatinine 0.5 L Glucose 109 H POC Glucose 117 H 109 H Calcium 7.6 L Phosphorus AST ALT Ammonia Albumin Urine WBC (Auto) 03/08/22 03/09/22 03/10/22 23:56 11:15 03:57 WBC RBC 2.99 L Hgb 9.9 L Hct 30.3 L MCV 102 H MCH 33 H MCHC RDW 16.8 H Lymph % (Auto) 13.3 L Banks % (Auto) 12.5 H Lymph # (Auto) Banks # (Auto) 1.3 H Seg Neutrophils % 72.4 H Seg Neuts % (Manual) Lymphocytes % (Manual) Seg Neutrophils # Seg Neutrophils # Man Lymphocytes # (Manual) PT INR ABG pH ABG pO2 ABG HCO3 ABG O2 Saturation ABG Base Excess ABG Hemoglobin Oxyhemoglobin Sodium Potassium Chloride Carbon Dioxide BUN Creatinine Glucose POC Glucose 106 H 110 H Calcium Phosphorus AST ALT Ammonia Albumin Urine WBC (Auto) 03/10/22 03/10/22 03/10/22 03:57 04:50 16:04 WBC RBC Hgb Hct MCV MCH MCHC RDW Lymph % (Auto) Banks % (Auto) Lymph # (Auto) Banks # (Auto) Seg Neutrophils % Seg Neuts % (Manual) Lymphocytes % (Manual) Seg Neutrophils # Seg Neutrophils # Man Lymphocytes # (Manual) PT INR ABG pH 7.465 H ABG pO2 ABG HCO3 31.9 H ABG O2 Saturation ABG Base Excess 7.3 H ABG Hemoglobin 11.0 L Oxyhemoglobin Sodium Potassium 3.4 L Chloride Carbon Dioxide BUN Creatinine 0.6 L Glucose POC Glucose 115 H Calcium 8.1 L Phosphorus AST ALT Ammonia Albumin 1.9 L Urine WBC (Auto) 03/11/22 03/11/22 03/11/22 04:02 04:02 04:02 WBC 12.0 H RBC 2.81 L Hgb 9.2 L Hct 29.1 L MCV 103 H MCH 33 H MCHC RDW 17.5 H Lymph % (Auto) Banks % (Auto) Lymph # (Auto) Banks # (Auto) Seg Neutrophils % Seg Neuts % (Manual) Lymphocytes % (Manual) Seg Neutrophils # Seg Neutrophils # Man Lymphocytes # (Manual) PT 16.2 H INR 1.16 H ABG pH ABG pO2 ABG HCO3 ABG O2 Saturation ABG Base Excess ABG Hemoglobin Oxyhemoglobin Sodium Potassium Chloride Carbon Dioxide BUN Creatinine 0.5 L Glucose 104 H POC Glucose Calcium 7.9 L Phosphorus AST ALT Ammonia Albumin Urine WBC (Auto) 03/11/22 03/11/22 03/11/22 05:10 11:07 16:32 WBC RBC Hgb Hct MCV MCH MCHC RDW Lymph % (Auto) Banks % (Auto) Lymph # (Auto) Banks # (Auto) Seg Neutrophils % Seg Neuts % (Manual) Lymphocytes % (Manual) Seg Neutrophils # Seg Neutrophils # Man Lymphocytes # (Manual) PT INR ABG pH 7.476 H ABG pO2 ABG HCO3 29.7 H ABG O2 Saturation ABG Base Excess 5.7 H ABG Hemoglobin 9.1 L Oxyhemoglobin Sodium Potassium Chloride Carbon Dioxide BUN Creatinine Glucose POC Glucose 108 H 121 H Calcium Phosphorus AST ALT Ammonia Albumin Urine WBC (Auto) 03/12/22 03/13/22 03/13/22 05:51 06:08 12:02 WBC RBC 2.73 L Hgb 9.0 L Hct 27.5 L MCV 101 H MCH 33 H MCHC RDW 17.2 H Lymph % (Auto) Banks % (Auto) Lymph # (Auto) Banks # (Auto) Seg Neutrophils % Seg Neuts % (Manual) Lymphocytes % (Manual) Seg Neutrophils # Seg Neutrophils # Man Lymphocytes # (Manual) PT INR ABG pH ABG pO2 ABG HCO3 ABG O2 Saturation ABG Base Excess ABG Hemoglobin Oxyhemoglobin Sodium Potassium Chloride Carbon Dioxide BUN Creatinine Glucose POC Glucose 116 H 111 H Calcium Phosphorus AST ALT Ammonia Albumin Urine WBC (Auto) 03/13/22 03/13/22 03/14/22 12:48 18:17 03:58 WBC RBC 2.97 L Hgb 9.7 L Hct 30.0 L MCV 101 H MCH 33 H MCHC RDW 16.7 H Lymph % (Auto) Banks % (Auto) Lymph # (Auto) Banks # (Auto) Seg Neutrophils % Seg Neuts % (Manual) Lymphocytes % (Manual) Seg Neutrophils # Seg Neutrophils # Man Lymphocytes # (Manual) PT INR ABG pH ABG pO2 ABG HCO3 ABG O2 Saturation ABG Base Excess ABG Hemoglobin Oxyhemoglobin Sodium Potassium Chloride Carbon Dioxide BUN Creatinine Glucose POC Glucose 125 H 114 H Calcium Phosphorus AST ALT Ammonia Albumin Urine WBC (Auto) 03/14/22 03/14/22 03/14/22 03:58 13:01 16:41 WBC RBC Hgb Hct MCV MCH MCHC RDW Lymph % (Auto) Banks % (Auto) Lymph # (Auto) Banks # (Auto) Seg Neutrophils % Seg Neuts % (Manual) Lymphocytes % (Manual) Seg Neutrophils # Seg Neutrophils # Man Lymphocytes # (Manual) PT INR ABG pH ABG pO2 ABG HCO3 ABG O2 Saturation ABG Base Excess ABG Hemoglobin Oxyhemoglobin Sodium Potassium Chloride Carbon Dioxide BUN Creatinine 0.6 L Glucose POC Glucose 118 H 109 H Calcium 8.2 L Phosphorus AST ALT Ammonia Albumin Urine WBC (Auto) 03/16/22 03/16/22 03/17/22 05:28 05:28 23:19 WBC RBC 2.81 L Hgb 9.1 L Hct 27.8 L MCV 99 H MCH MCHC RDW 17.0 H Lymph % (Auto) Banks % (Auto) Lymph # (Auto) Banks # (Auto) Seg Neutrophils % Seg Neuts % (Manual) Lymphocytes % (Manual) Seg Neutrophils # Seg Neutrophils # Man Lymphocytes # (Manual) PT INR ABG pH ABG pO2 ABG HCO3 ABG O2 Saturation ABG Base Excess ABG Hemoglobin Oxyhemoglobin Sodium Potassium Chloride Carbon Dioxide BUN Creatinine 0.5 L Glucose POC Glucose 113 H Calcium 8.2 L Phosphorus AST ALT Ammonia Albumin Urine WBC (Auto) 03/20/22 03/20/22 03/20/22 04:09 04:09 17:22 WBC RBC 2.90 L Hgb 9.6 L Hct 28.9 L MCV 100 H MCH 33 H MCHC RDW 17.4 H Lymph % (Auto) Banks % (Auto) Lymph # (Auto) Banks # (Auto) Seg Neutrophils % Seg Neuts % (Manual) Lymphocytes % (Manual) Seg Neutrophils # Seg Neutrophils # Man Lymphocytes # (Manual) PT INR ABG pH ABG pO2 ABG HCO3 ABG O2 Saturation ABG Base Excess ABG Hemoglobin Oxyhemoglobin Sodium Potassium Chloride Carbon Dioxide BUN Creatinine 0.6 L Glucose POC Glucose 110 H Calcium 8.2 L Phosphorus AST ALT Ammonia Albumin Urine WBC (Auto) 03/21/22 03/21/22 03/22/22 18:24 23:09 12:18 WBC RBC Hgb Hct MCV MCH MCHC RDW Lymph % (Auto) Banks % (Auto) Lymph # (Auto) Banks # (Auto) Seg Neutrophils % Seg Neuts % (Manual) Lymphocytes % (Manual) Seg Neutrophils # Seg Neutrophils # Man Lymphocytes # (Manual) PT INR ABG pH ABG pO2 ABG HCO3 ABG O2 Saturation ABG Base Excess ABG Hemoglobin Oxyhemoglobin Sodium Potassium Chloride Carbon Dioxide BUN Creatinine Glucose POC Glucose 110 H 107 H 106 H Calcium Phosphorus AST ALT Ammonia Albumin Urine WBC (Auto) 03/22/22 03/23/22 03/23/22 14:25 00:21 11:31 WBC RBC Hgb Hct MCV MCH MCHC RDW Lymph % (Auto) Banks % (Auto) Lymph # (Auto) Banks # (Auto) Seg Neutrophils % Seg Neuts % (Manual) Lymphocytes % (Manual) Seg Neutrophils # Seg Neutrophils # Man Lymphocytes # (Manual) PT INR ABG pH ABG pO2 150.5 H ABG HCO3 32.4 H ABG O2 Saturation ABG Base Excess 6.2 H ABG Hemoglobin 11.4 L Oxyhemoglobin Sodium Potassium Chloride Carbon Dioxide BUN Creatinine Glucose POC Glucose 107 H 110 H Calcium Phosphorus AST ALT Ammonia Albumin Urine WBC (Auto) 03/24/22 03/24/22 03/24/22 03:47 03:47 05:56 WBC RBC 3.18 L Hgb 10.1 L Hct 31.1 L MCV 98 H MCH MCHC RDW 17.4 H Lymph % (Auto) Banks % (Auto) Lymph # (Auto) Banks # (Auto) Seg Neutrophils % Seg Neuts % (Manual) Lymphocytes % (Manual) Seg Neutrophils # Seg Neutrophils # Man Lymphocytes # (Manual) PT INR ABG pH ABG pO2 ABG HCO3 ABG O2 Saturation ABG Base Excess ABG Hemoglobin Oxyhemoglobin Sodium Potassium Chloride Carbon Dioxide BUN Creatinine 0.5 L Glucose POC Glucose 107 H Calcium Phosphorus AST ALT Ammonia Albumin Urine WBC (Auto) 03/24/22 03/25/22 03/25/22 11:15 00:14 11:24 WBC RBC Hgb Hct MCV MCH MCHC RDW Lymph % (Auto) Banks % (Auto) Lymph # (Auto) Banks # (Auto) Seg Neutrophils % Seg Neuts % (Manual) Lymphocytes % (Manual) Seg Neutrophils # Seg Neutrophils # Man Lymphocytes # (Manual) PT INR ABG pH ABG pO2 ABG HCO3 ABG O2 Saturation ABG Base Excess ABG Hemoglobin Oxyhemoglobin Sodium Potassium Chloride Carbon Dioxide BUN Creatinine Glucose POC Glucose 126 H 109 H 110 H Calcium Phosphorus AST ALT Ammonia Albumin Urine WBC (Auto) 03/25/22 03/26/22 03/26/22 16:27 05:18 11:15 WBC RBC Hgb Hct MCV MCH MCHC RDW Lymph % (Auto) Banks % (Auto) Lymph # (Auto) Banks # (Auto) Seg Neutrophils % Seg Neuts % (Manual) Lymphocytes % (Manual) Seg Neutrophils # Seg Neutrophils # Man Lymphocytes # (Manual) PT INR ABG pH ABG pO2 ABG HCO3 ABG O2 Saturation ABG Base Excess ABG Hemoglobin Oxyhemoglobin Sodium Potassium Chloride Carbon Dioxide BUN Creatinine Glucose POC Glucose 123 H 114 H 135 H Calcium Phosphorus AST ALT Ammonia Albumin Urine WBC (Auto) 03/26/22 03/27/22 03/27/22 18:08 03:52 03:52 WBC 17.1 H RBC 2.94 L Hgb 9.2 L Hct 29.3 L MCV 100 H MCH MCHC 31 L RDW 17.5 H Lymph % (Auto) Banks % (Auto) Lymph # (Auto) Banks # (Auto) Seg Neutrophils % Seg Neuts % (Manual) Lymphocytes % (Manual) Seg Neutrophils # Seg Neutrophils # Man Lymphocytes # (Manual) PT INR ABG pH ABG pO2 ABG HCO3 ABG O2 Saturation ABG Base Excess ABG Hemoglobin Oxyhemoglobin Sodium 136 L Potassium Chloride Carbon Dioxide 32 H BUN 23 H Creatinine 0.6 L Glucose POC Glucose 130 H Calcium 8.2 L Phosphorus AST ALT Ammonia Albumin Urine WBC (Auto) 09/03/1003/27/22 03/27/22 08:36 12:55 18:27 WBC RBC Hgb Hct MCV MCH MCHC RDW Lymph % (Auto) Banks % (Auto) Lymph # (Auto) Banks # (Auto) Seg Neutrophils % Seg Neuts % (Manual) Lymphocytes % (Manual) Seg Neutrophils # Seg Neutrophils # Man Lymphocytes # (Manual) PT INR ABG pH ABG pO2 ABG HCO3 ABG O2 Saturation ABG Base Excess ABG Hemoglobin Oxyhemoglobin Sodium Potassium Chloride Carbon Dioxide BUN Creatinine Glucose POC Glucose 137 H 114 H Calcium Phosphorus AST ALT Ammonia Albumin Urine WBC (Auto) > 182.0 H 03/28/22 03/28/22 03/28/22 01:00 04:06 04:52 WBC 14.2 H RBC 2.76 L Hgb 8.6 L Hct 26.8 L MCV 97 H MCH MCHC RDW 17.4 H Lymph % (Auto) 7.5 L Banks % (Auto) 10.5 H Lymph # (Auto) 1.1 L Banks # (Auto) 1.5 H Seg Neutrophils % 80.7 H Seg Neuts % (Manual) Lymphocytes % (Manual) Seg Neutrophils # 11.4 H Seg Neutrophils # Man Lymphocytes # (Manual) PT INR ABG pH ABG pO2 ABG HCO3 ABG O2 Saturation ABG Base Excess ABG Hemoglobin Oxyhemoglobin Sodium Potassium Chloride Carbon Dioxide BUN Creatinine Glucose POC Glucose 111 H 111 H Calcium Phosphorus AST ALT Ammonia Albumin Urine WBC (Auto) 03/28/22 03/28/22 03/29/22 12:09 23:23 04:22 WBC RBC 2.85 L Hgb 8.9 L Hct 27.8 L MCV 98 H MCH MCHC RDW 17.8 H Lymph % (Auto) Banks % (Auto) Lymph # (Auto) Banks # (Auto) Seg Neutrophils % Seg Neuts % (Manual) Lymphocytes % (Manual) Seg Neutrophils # Seg Neutrophils # Man Lymphocytes # (Manual) PT INR ABG pH ABG pO2 ABG HCO3 ABG O2 Saturation ABG Base Excess ABG Hemoglobin Oxyhemoglobin Sodium Potassium Chloride Carbon Dioxide BUN Creatinine Glucose POC Glucose 114 H 112 H Calcium Phosphorus AST ALT Ammonia Albumin Urine WBC (Auto) 03/29/22 03/29/22 03/29/22 05:56 12:22 23:39 WBC RBC Hgb Hct MCV MCH MCHC RDW Lymph % (Auto) Banks % (Auto) Lymph # (Auto) Banks # (Auto) Seg Neutrophils % Seg Neuts % (Manual) Lymphocytes % (Manual) Seg Neutrophils # Seg Neutrophils # Man Lymphocytes # (Manual) PT INR ABG pH ABG pO2 ABG HCO3 ABG O2 Saturation ABG Base Excess ABG Hemoglobin Oxyhemoglobin Sodium Potassium Chloride Carbon Dioxide BUN Creatinine Glucose POC Glucose 116 H 130 H 121 H Calcium Phosphorus AST ALT Ammonia Albumin Urine WBC (Auto)
--- NOTE | 2022-03-30 17:35 | XRay Report ---
ABDOMEN 1 VIEW 03/30/2022 5:15 PM INDICATION / CLINICAL INFORMATION: dobhoff placement. COMPARISON: None available. FINDINGS: Dobbhoff tube extends within the stomach. Signer Name: Buddy Haley MD Signed: 03/30/2022 5:31 PM Workstation Name: [id number]
[2022-03-30] MEDS: PRAVASTATIN 40 MG TAB FEEDTUBE SCH (21:17)
[2022-03-31] MEDS: ALBUTEROL 2.5 MG/3 ML NEBU IH SCH ×4 (03:11→20:03)
[2022-03-31 04:47] LABS: Hematocrit 30.1 % (35.5-45.6); Hemoglobin 9.5 gm/dl (11.8-15.2); Mean Corpuscular HGB Conc 32 % (32-34); Mean Corpuscular Volume 98 fl (84-94); Platelet Count 331 K/mm3 (140-440); Red Blood Count 3.08 M/mm3 (3.65-5.03); Red Cell Distribution Width 17.7 % (13.2-15.2)
[2022-03-31 05:00] LABS: Blood Urea Nitrogen 18 mg/dL (9-20); Calcium 8.8 mg/dL (8.4-10.2); Hemolysis Index 5
[2022-03-31 05:09] LABS: BUN/Creatinine Ratio 36
[2022-03-31] MEDS: LEVOTHYROXINE 25 MCG TAB FEEDTUBE SCH (05:46)
[2022-03-31] MEDS: HEPARIN 5,000 UNIT/1 ML VIAL SUB-Q SCH ×3 (05:46→21:01)
[2022-03-31] MEDS: FAMOTIDINE 20 MG TAB FEEDTUBE SCH ×2 (09:19→21:01)
[2022-03-31] MEDS: SENNOSIDES/DOCUSATE SODIUM 8.6/50 MG TAB FEEDTUBE SCH ×2 (09:19→23:35)
[2022-03-31] MEDS: levETIRAcetam 500 MG/5 ML ORAL LIQD FEEDTUBE SCH ×2 (09:19→21:01)
[2022-03-31] MEDS: MIDODRINE 2.5 MG TAB FEEDTUBE SCH ×3 (09:19→17:12)
--- NOTE | 2022-03-31 11:18 | Progress Note ---
<KEATON GOLD - Last Filed: 03/31/22 18:44> Assessment and Plan Assessment and plan: This is a 51-year-old male with HTN, seizure disorder, Down syndrome, HLD, partial blindness admitted with aspiration pneumonia, probable bronchogenic carcinoma, acute hypoxic respiratory failure and acute encephalopathy Hospital course to date: 02/19/2022. Consult pulmonary for further evaluation and possible bronchoscopy. I suspect patient has component of aspiration pneumonia as well. We will obtain a speech therapy evaluation for swallowing and start empiric antibiotics. Continue O2 supplementation to maintain sats greater than 92%. 02/20/2022. Pulmonary feels that the abnormality seen on CT scan is highly unlikely for a mass given negative chest x-ray 1 month ago and no risk factors. Etiology is likely secondary to aspiration from possibly a foreign body most likely food with atelectasis of the right lower lobe. Bronchoscopy is needed in the case to evaluate to see if lung mass is there vs foreign body, but at this time not able to do because no identifiable person that is able to give consent. Continue aspiration precautions and continue speech therapy evaluation for swallowing. Keep n.p.o. for now 02/21/2022. Patient remains NPO. Consider DHT placement. Follow-up with speech therapy evaluation. Pulmonology to consider bronchoscopy if able to obtain consent. Continue IV antibiotics for aspiration pneumonia 02/22/2022. Patient remains NPO. Consider DHT placement. Follow-up with speech therapy evaluation. Pulmonology to consider bronchoscopy if able to obtain consent. Continue IV antibiotics for aspiration pneumonia 02/23/2022. DHT placed yesterday. TF initiated for nutritional support. Patient currently with strict NPO. Aspiration precautions. Pulmonology to consider bronchoscopy if able to obtain consent. Continue IV antibiotics for aspiration pneumonia 02/24: Patient was transferred to the ICU for further monitoring. This morning patient remained on high flow nasal cannula on 40 L/100% and despite repeated nasotracheal suctioning patient SPO2 remained in the 80s. Patient was placed on nonrebreather and SPO2 increased to upper 80s. Patient was subsequently intubated by anesthesia. Started on sedation. 02/25: Patient remains sedated on fentanyl, potassium and magnesium repleted. IV fluids and amlodipine discontinued. Possible bronchoscopy tomorrow. 02/26: Patient had a bronchoscopy today which showed mucus and no endobronchial lesions or masses. FiO2 was increased to 100 during and postprocedure weaning as tolerated. Repeat CXR is much improved after bronc. Given 1 L LR bolus due to hypotension. No acute events reported overnight. 02/27: Decreased PEEP, will repeat CT of chest. no acute changes overnight. 02/28: Patient was extubated today however had to be be intubated shortly after. Patient ETT looked mispositioned on x-ray and Dr. Alonzo did do a bedside bronc. Patient was briefly hypotensive and on Levophed postintubation however Levophed was quickly titrated off and patient did not require central line. No acute events reported overnight. Will obtain CT neck d/t difficulty intubating. Ethi committee consulted. 03/04: Overnight patient was hypotensive and started on IVF. Patient started on steroids as no air leak noted and hypotension and given 2 L LR 03/05: Overnight patient received bolus per RN report, no orders seen. Continue supportive care 03/03: SB on the monitor, HR as low as 37, VSS. Will continue to monitor for now. Awaiting on desicion from [facility] for possible trach and PEG. Continue daily air leak per [facility] 03/04: MAIDA overnight. Remains stable on the vent. Awaiting on desicion from [facility] for possible trach and PEG. Continue current supportive measures 03/05: MAIDA overnight. Awaiting on desicion from [facility] for possible trach and PEG. Midodrine held yesterday, HR improved. Continue current supportive measures. Daily PSV trial as tolerated per [facility] 03/06: Remains stable on the vent. Continue current supportive measures, daily PSV trial per [facility]. Awaiting on desicion for possible trach and PEG. 03/07: MAIDA overnight, remains stable. Continue daily PSV trial as tolerated. Awaiting on desicion for possible trach and PEG. 03/08: Patient failed PSV trial this am due to tachycardia and increase RR. Continue supportive measures and daily PSV trial as tolerated. Possible discussion with [email or web address] and [facility] on Thursday in regards to medical necessity, may need to consider two physician consent if no one is able to claim responsibility for this patient. 03/09: MAIDA overnight. Continue current supportive measures and daily PSV trail as tolerated. Awaiting on desicion for possible trach and PEG, discussion with Ethics possibly tomorrow per [facility]. 03/10: no acute events overnight, PSV today. replete potassium. 03/11: No acute events reported overnight, patient failed PSV yesterday and will repeat today. Hospital to start guardianship process. 03/12: No acute events overnight. PSV today 03/13: Patient given 500ml normal saline and started on midodrine for h ypotension. No acute events reported overnight. Failed pressure support again this morning. 03/14: No acute events reported overnight, patient blood pressure seems better therefore midodrine discontinued. RT placed on CPAP need lasted for couple hours. Will remove summers 03/15: Midodrine was restarted yesterday evening for hypotension, Summers catheter not removed due to sacral ulcer and history of retention. Unable to crush Flomax and patient will not tolerate doxazosin given hypotension. Given LR bolus this morning. If blood pressure continues to be borderline after bolus, we will adjust management as needed. CPAP as tolerated 03/16: No acute events reported overnight, patient placed on CPAP trial this morning which he failed. 03/17: RT attempted PSV which he failed again today. No acute events reported overnight. 03/18: Awaiting ethic committee's decision on Trach/PEG. Patient tolerated PSV trial for over 3 hrs today, continue daily PSV trial as tolerated. 03/19: MAIDA overnight. Continue current supportive measures. Daily PSV trial as tolerated. Awaiting on desicion for possible trach and PEG. 03/20: MAIDA overnight. Daily PSV trial as tolerated. Awaiting decision on guardian ship for trach and PEG. 03/21: Remains stable, condition unchanged. Continue supportive measures and daily PSV trial as tolerated. 03/22: MAIDA overnight. Continue current supportive measures. Daily PSV trial as tolerated 03/23: MAIDA overnight, continue supportive measures and daily PSV trial as tolerated. 03/24: Condition unchanged. Still waiting on Ethics' decision for possible trach/Peg. Continue supportive measures and daily PSV trial as tolerated. 03/25: PSV attempt today, does open eyes to stimuli, no acute events overnight. 03/26: Yesterday evening Summers catheter was removed as he was due to be changed, condom cath placed. Overnight patient had good urine output and per RN repeated bladder scans showed less than 200 mL of urine. We will continue to monitor urine output. RT to attempt PSV 03/27: Patient has leukocytosis today and UA has pyuria with moderate LE therefore he will be started on antibiotics. 03/28: Leukocytosis improving. No acute events reported overnight. 03/29: No acute events overnight. Continue supportive care. 03/30: no acute events overnight, PSV again. 03/31: Condition unchanged, remains on low vent setting. Possible Ethics meeting today and tomorrow for possible guardianship. Will consult General Surgery for possible trach and Peg once guardianship decision has been made. Continue supportive measures and daily PSV trial as tolerated Neuro: Acute encephalopathy, h/o seizure disorder, Down syndrome, partial blindness -Intubated and off sedation -Reorientation as needed -Maintain sleep-wake cycle -aspiration/seizure precautions -As needed analgesia -CT head showed no acute abnormality -Continue Keppra Cardiac: Hypotension, h/o HTN, HLD -Cardiology consulted, appreciate recommendations -Blood pressure monitoring per protocol -d/c amlodipine -On PO Midodrine for hypotension Respiratory: Acute hypoxic respiratory failure, r/o bronchogenic carcinoma -CCM consulted, appreciate recommendations -Intubated on 02/24 with a 8.0 at 23 at the lips but extubated 02/28 -reintubated 02/28 with 8.0 OETT -Vent settings: AC rate 14, TV 360, PEEP 6, FO2 30% -See RT notes for titration -VAP bundle -SPO2 monitoring -02/18 CTA chest showed no evidence of pulmonary embolism, suspected bronchogenic carcinoma with associated obstruction of the right lower lobe proximal bronchus segment, 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 adenopathy and suspected to left lower lobe metastatic nodule -02/26 Bronch->mucous, no lesion noted -02/27 CT chest showed right mainstem bronchus patent with small amount of interval bronchial fluid which may be mucus (this may account for the appearance of the prior CTA chest fluid-filled airway rather than entering bronchial lesion), previously seen complete left lower lobe since related to bronchial occlusion has significantly improved, there is persistent compressive atelectasis in the right lower lung secondary to the pleural effusion, bilateral pleural effusions, right lung pneumonia -CT neck showed no acute changes - IV Steroids stopped GI: Moderate protein calorie malnutrition -PPI -NTR consulted for tube feedings -BR: Senokot S : Hypernatremia (resolved) -FWF 200 ml q4 hr -Monitor intake and output -Renally dose medications -Avoid nephrotoxic medications -Trend BMP ID: UTI, Aspiration PNA (resolved), sacral wound (POA) -UA with pyuria, mod LE with leukocytosis -WOCN consulted -Dressing changes per nursing -S/p Rocephin for 5 days (02/19-02/24) -Current abx therapy: rocephin for 3 days -Monitor WBC and temperature curve Endo: NAD -Avoid hypoglycemia -Accu-Cheks every 6 -Avoid hypoglycemia Heme: NAD -Trend CBC -Transfuse hemoglobin less than 7 -SCDs to BLE while in bed The high probability of a clinically significant, sudden or life threatening deterioration of the [resp] system(s) required my full and direct attention, intervention and personal management. The aggregate critical care time was [60] minutes. This time is in addition to time spent performing reported procedures but includes the following: [x] Data Review and interpretation [x] Patient assessment and monitoring of vital signs [x] Documentation [x] Medication orders and management Disposition Plan: ICU Total Time Spent with Patient (Minutes): 60 History Interval history: Patient seen and examined at the bedside. Remains stable on low vent setting. SR on the monitor this am, VSS. MAIDA overnight Hospitalist Physical - Physical exam Narrative exam: General appearance: Present: no acute distress, well-nourished, obese - EENT Eyes: Present: PERRL - Neck Neck: Present: normal ROM - Respiratory Respiratory effort: normal Respiratory: bilateral: rhonchi - Cardiovascular Rhythm: regular Heart Sounds: Present: S1 & S2 - Extremities Extremities: no ischemia, pulses intact, pulses symmetrical Extremity abnormal: edema - Peripheral Assessment Generalized Edema Type: Non-pitting Edema Degree: 1+ Capillary Refill: < 3 seconds Skin Temperature: Warm Peripheral Pulses: within normal limits - Abdominal General gastrointestinal: soft, non-distended, normal bowel sounds - Integumentary Integumentary: Present: warm, dry - Psychiatric Psychiatric: other (Intubated, unresponsive. Not on any sedations) - Neurologic Neurologic: moves all extremities, other (Intubated, unresponsive. Not on any sedations) - Allied Health Allied health notes reviewed: nursing, case management - Constitutional Vitals: Temp Pulse Resp BP Pulse Ox 97.8 F 94 H 20 130/64 93 03/31/22 07:08 03/31/22 10:01 03/31/22 10:01 03/31/22 10:01 03/31/22 10:01 HEART Score - HEART Score Troponin: Troponin T < 0.010 ng/mL (0.00-0.029) 02/18/22 21:02 Results - Labs CBC & Chem 7: 03/31/22 03:56 03/31/22 03:56 Labs: Laboratory Last Values WBC 9.7 K/mm3 (4.5-11.0) 03/31/22 03:56 RBC 3.08 M/mm3 (3.65-5.03) L 03/31/22 03:56 Hgb 9.5 gm/dl (11.8-15.2) L 03/31/22 03:56 Hct 30.1 % (35.5-45.6) L 03/31/22 03:56 MCV 98 fl (84-94) H 03/31/22 03:56 MCH 31 pg (28-32) 03/31/22 03:56 MCHC 32 % (32-34) 03/31/22 03:56 RDW 17.7 % (13.2-15.2) H 03/31/22 03:56 Plt Count 331 K/mm3 (140-440) 03/31/22 03:56 Lymph % (Auto) 7.5 % (13.4-35.0) L 03/28/22 04:06 [place] % (Auto) 10.5 % (0.0-7.3) H 03/28/22 04:06 Eos % (Auto) 0.9 % (0.0-4.3) 03/28/22 04:06 Baso % (Auto) 0.4 % (0.0-1.8) 03/28/22 04:06 Lymph # (Auto) 1.1 K/mm3 (1.2-5.4) L 03/28/22 04:06 [place] # (Auto) 1.5 K/mm3 (0.0-0.8) H 03/28/22 04:06 Eos # (Auto) 0.1 K/mm3 (0.0-0.4) 03/28/22 04:06 Baso # (Auto) 0.1 K/mm3 (0.0-0.1) 03/28/22 04:06 Add Manual Diff Complete 03/03/22 03:54 Total Counted 100 03/03/22 03:54 Seg Neutrophils % 80.7 % (40.0-70.0) H 03/28/22 04:06 Seg Neuts % (Manual) 95.0 % (40.0-70.0) H 03/03/22 03:54 Band Neutrophils % 0 % 03/03/22 03:54 Lymphocytes % (Manual) 3.0 % (13.4-35.0) L 03/03/22 03:54 Reactive Lymphs % (Man) 0 % 03/03/22 03:54 Monocytes % (Manual) 2.0 % (0.0-7.3) 03/03/22 03:54 Eosinophils % (Manual) 0 % (0.0-4.3) 03/03/22 03:54 Basophils % (Manual) 0 % (0.0-1.8) 03/03/22 03:54 Metamyelocytes % 0 % 03/03/22 03:54 Myelocytes % 0 % 03/03/22 03:54 Promyelocytes % 0 % 03/03/22 03:54 Blast Cells % 0 % 03/03/22 03:54 Nucleated RBC % Not Reportable 03/03/22 03:54 Seg Neutrophils # 11.4 K/mm3 (1.8-7.7) H 03/28/22 04:06 Seg Neutrophils # Man 18.5 K/mm3 (1.8-7.7) H 03/03/22 03:54 Band Neutrophils # 0.0 K/mm3 03/03/22 03:54 Lymphocytes # (Manual) 0.6 K/mm3 (1.2-5.4) L 03/03/22 03:54 Abs React Lymphs (Man) 0.0 K/mm3 03/03/22 03:54 Monocytes # (Manual) 0.4 K/mm3 (0.0-0.8) 03/03/22 03:54 Eosinophils # (Manual) 0.0 K/mm3 (0.0-0.4) 03/03/22 03:54 Basophils # (Manual) 0.0 K/mm3 (0.0-0.1) 03/03/22 03:54 Metamyelocytes # 0.0 K/mm3 03/03/22 03:54 Myelocytes # 0.0 K/mm3 03/03/22 03:54 Promyelocytes # 0.0 K/mm3 03/03/22 03:54 Blast Cells # 0.0 K/mm3 03/03/22 03:54 WBC Morphology Not Reportable 03/03/22 03:54 Hypersegmented Neuts Not Reportable 03/03/22 03:54 Hyposegmented Neuts Not Reportable 03/03/22 03:54 Hypogranular Neuts Not Reportable 03/03/22 03:54 Smudge Cells Not Reportable 03/03/22 03:54 Toxic Granulation Not Reportable 03/03/22 03:54 Toxic Vacuolation Not Reportable 03/03/22 03:54 Dohle Bodies Not Reportable 03/03/22 03:54 Pelger-Huet Anomaly Not Reportable 03/03/22 03:54 Lakshmi Rods Not Reportable 03/03/22 03:54 Platelet Estimate Consistent w auto 03/03/22 03:54 Clumped Platelets Not Reportable 03/03/22 03:54 Plt Clumps, EDTA Not Reportable 03/03/22 03:54 Large Platelets Not Reportable 03/03/22 03:54 Giant Platelets Not Reportable 03/03/22 03:54 Platelet Satelliting Not Reportable 03/03/22 03:54 Plt Morphology Comment Not Reportable 03/03/22 03:54 RBC Morphology Not Reportable 03/03/22 03:54 Dimorphic RBCs Not Reportable 03/03/22 03:54 Polychromasia Not Reportable 03/03/22 03:54 Hypochromasia Not Reportable 03/03/22 03:54 Poikilocytosis Not Reportable 03/03/22 03:54 Anisocytosis 1+ 03/03/22 03:54 Microcytosis Not Reportable 03/03/22 03:54 Macrocytosis Not Reportable 03/03/22 03:54 Spherocytes Not Reportable 03/03/22 03:54 Pappenheimer Bodies Not Reportable 03/03/22 03:54 Sickle Cells Not Reportable 03/03/22 03:54 Target Cells Not Reportable 03/03/22 03:54 Tear Drop Cells Not Reportable 03/03/22 03:54 Ovalocytes Not Reportable 03/03/22 03:54 Helmet Cells Not Reportable 03/03/22 03:54 [place] Bodies Not Reportable 03/03/22 03:54 Gravette Rings Not Reportable 03/03/22 03:54 [place] Cells Not Reportable 03/03/22 03:54 Bite Cells Not Reportable 03/03/22 03:54 Crenated Cell Not Reportable 03/03/22 03:54 Elliptocytes Not Reportable 03/03/22 03:54 Acanthocytes (Spur) Not Reportable 03/03/22 03:54 Rouleaux Not Reportable 03/03/22 03:54 Hemoglobin C Crystals Not Reportable 03/03/22 03:54 Schistocytes Not Reportable 03/03/22 03:54 Malaria parasites Not Reportable 03/03/22 03:54 Cash Bodies Not Reportable 03/03/22 03:54 Hem Pathologist Commnt No 03/03/22 03:54 PT 16.2 Sec. (12.2-14.9) H 03/11/22 04:02 INR 1.16 (0.87-1.13) H 03/11/22 04:02 ABG pH 7.392 pH Units (7.350-7.450) 03/22/22 14:25 ABG pCO2 54.4 mm Hg 03/22/22 14:25 ABG pO2 150.5 mm Hg (80.0-90.0) H 03/22/22 14:25 ABG HCO3 32.4 mmol/L (20.0-26.0) H 03/22/22 14:25 ABG O2 Saturation 98.8 % (95.0-99.0) 03/22/22 14:25 ABG O2 Content 15.8 (0.0-44) 03/22/22 14:25 ABG Base Excess 6.2 mmol/L (-2.0-3.0) H 03/22/22 14:25 ABG Hemoglobin 11.4 gm/dl (14.0-18.0) L 03/22/22 14:25 ABG Carboxyhemoglobin 1.6 % (0.0-5.0) 03/22/22 14:25 ABG Methemoglobin 0.6 % (0.0-1.5) 03/22/22 14:25 Oxyhemoglobin 96.6 % (95.0-99.0) 03/22/22 14:25 FiO2 30 % 03/22/22 14:25 Sodium 135 mmol/L (137-145) L 03/31/22 03:56 Potassium 4.5 mmol/L (3.6-5.0) 03/31/22 03:56 Chloride 97.4 mmol/L (98-107) L 03/31/22 03:56 Carbon Dioxide 31 mmol/L (22-30) H 03/31/22 03:56 Anion Gap 11 mmol/L 03/31/22 03:56 BUN 18 mg/dL (9-20) 03/31/22 03:56 Creatinine 0.5 mg/dL (0.8-1.3) L 03/31/22 03:56 Estimated GFR > 60 ml/min 03/31/22 03:56 BUN/Creatinine Ratio 36 % 03/31/22 03:56 Glucose 102 mg/dL (75-100) H 03/31/22 03:56 POC Glucose 113 mg/dL (70-105) H 03/30/22 23:05 Lactic Acid 1.20 mmol/L (0.7-2.0) 02/18/22 21:02 Calcium 8.8 mg/dL (8.4-10.2) 03/31/22 03:56 Phosphorus 3.50 mg/dL (2.5-4.5) 03/20/22 04:09 Magnesium 2.00 mg/dL (1.7-2.3) 03/20/22 04:09 Total Bilirubin 0.30 mg/dL (0.1-1.2) 03/10/22 03:57 AST 17 units/L (5-40) 03/10/22 03:57 ALT 18 units/L (7-56) 03/10/22 03:57 Alkaline Phosphatase 89 units/L (35-129) 03/10/22 03:57 Ammonia 14.0 umol/L (25-60) L 02/18/22 23:22 Troponin T < 0.010 ng/mL (0.00-0.029) 02/18/22 21:02 Total Protein 6.6 g/dL (6.3-8.2) 03/10/22 03:57 Albumin 1.9 g/dL (3.9-5) L 03/10/22 03:57 Albumin/Globulin Ratio 0.4 % 03/10/22 03:57 Urine Color Yellow (Yellow) 03/27/22 08:36 Urine Turbidity Cloudy (Clear) 03/27/22 08:36 Urine pH 7.0 (5.0-7.0) 02/18/22 Unknown Ur Specific [place] 1.015 (1.003-1.030) 02/18/22 Unknown Specific [place] (Man) 1.020 (1.003-1.030) 03/27/22 08:36 Urine Protein <15 mg/dl mg/dL (Negative) 02/18/22 Unknown Ur Protein (Man) 1+ mg/dL (Negative) 03/27/22 08:36 Urine Glucose (UA) Negative mg/dL (Negative) 02/18/22 Unknown Urine Ketones Negative mg/dL (Negative) 02/18/22 Unknown Ur Ketones (Man) Negative (Negative) 03/27/22 08:36 Urine Blood Trace (Negative) 02/18/22 Unknown Urine Nitrite Negative (Negative) 02/18/22 Unknown Ur Nitrite (Man) Negative (Negative) 03/27/22 08:36 Ur Reducing Substances Not Reportable 03/27/22 08:36 Urine Bilirubin Negative (Negative) 02/18/22 Unknown Urine Bilirubin (Man) Negative (Negative) 03/27/22 08:36 Urine Ictotest Not Reportable 03/27/22 08:36 Urine Urobilinogen < 2.0 mg/dL (<2.0) 02/18/22 Unknown Ur Leukocyte Esterase Negative (Negative) 02/18/22 Unknown Leukocyte Esterase (Man) Moderate (Negative) 03/27/22 08:36 Urine WBC (Auto) > 182.0 /HPF (0.0-6.0) H 03/27/22 08:36 Urine RBC (Auto) 9.0 /HPF (0.0-6.0) 03/27/22 08:36 U Epithel Cells (Auto) < 1.0 /HPF (0-13.0) 03/27/22 08:36 Urine RBC (Manual) 1+ (Negative) 03/27/22 08:36 Urine Mucus Few /HPF 03/27/22 08:36 Urine Yeast (Budding) 2+ /HPF 03/27/22 08:36 Urine Opiates Screen Negative 02/18/22 Unknown Urine Methadone Screen Negative 02/18/22 Unknown Ur Barbiturates Screen Negative 02/18/22 Unknown Ur Phencyclidine Scrn Negative 02/18/22 Unknown Ur Amphetamines Screen Negative 02/18/22 Unknown U Benzodiazepines Scrn Negative 02/18/22 Unknown Urine Cocaine Screen Negative 02/18/22 Unknown U Marijuana (THC) Screen Negative 02/18/22 Unknown Drugs of Abuse Note Disclamer 02/18/22 Unknown Plasma/Serum Alcohol < 0.01 % (0-0.07) 02/18/22 21:02 Summers/IV: Voiding Method Indwelling Catheter Active Medications - Current Medications Current Medications: Generic Name Dose Route Start Last Admin Trade Name Freq PRN Reason Stop Dose Admin Acetaminophen 650 mg 03/03/22 09:00 Acetaminophen 325 Mg/10.15 Ml Oral Liqd Unit Dose FEEDTUBE Q4H PRN Pain, Mild (1-3); TEMP > 100.4 Albuterol 2.5 mg 03/12/22 20:00 03/31/22 08:28 Albuterol 2.5 Mg/3 Ml Nebu IH 2.5 mg Q6HRT LAZARUS Administration Famotidine 20 mg 02/25/22 10:00 03/31/22 09:19 Famotidine 20 Mg Tab FEEDTUBE 20 mg BID LAZARUS Administration Heparin Sodium (Porcine) 5,000 unit 02/19/22 06:00 03/31/22 05:46 Heparin 5,000 Unit/1 Ml Vial SUB-Q 5,000 unit Q8HR LAZARUS Administration Levetiracetam 500 mg 02/25/22 22:00 03/31/22 09:19 Levetiracetam 500 Mg/5 Ml Oral Liqd FEEDTUBE 500 mg BID LAZARUS Administration Levothyroxine Sodium 25 mcg 02/26/22 06:00 03/31/22 05:46 Levothyroxine 25 Mcg Tab FEEDTUBE 25 mcg QAM@0600 LAZARUS Administration Magnesium Hydroxide 30 ml 02/19/22 02:02 Magnesium Hydroxide (Mom) Oral Liqd Udc PO Q4H PRN Constipation Midodrine 2.5 mg 03/19/22 12:00 03/31/22 09:19 Midodrine 2.5 Mg Tab FEEDTUBE 2.5 mg TID@0800,1200,1600 LAZARUS Administration Multi-Ingred Cream/Lotion/Oil/Oint 1 applic 08/08/22 15:05 Mineral Oil/Petrolatum, White Ophth Oint 3.5 Gm OU Q4HR PRN Dry Eye(s) Ondansetron HCl 4 mg 02/19/22 02:02 Ondansetron 4 Mg/2 Ml Inj IV Q8H PRN Nausea And Vomiting Pravastatin Sodium 40 mg 02/25/22 22:00 03/30/22 21:17 Pravastatin 40 Mg Tab FEEDTUBE 40 mg QHS LAZARUS Administration Senna/Docusate Sodium 1 tab 02/24/22 22:00 03/31/22 09:19 Sennosides/Docusate Sodium 8.6/50 Mg Tab FEEDTUBE 1 tab BID LAZARUS Administration Sodium Chloride 10 ml 02/19/22 10:00 03/31/22 09:20 Sodium Chloride 0.9% 10 Ml Flush Syringe IV 10 ml BID LAZARUS Administration Sodium Chloride 10 ml 02/19/22 02:02 03/03/22 14:21 Sodium Chloride 0.9% 10 Ml Flush Syringe IV 10 ml PRN PRN Administration LINE FLUSH Nutrition/Malnutrition Assess - Dietary Evaluation Nutrition/Malnutrition Findings: Nutrition Notes Start: 02/19/22 14:29 Freq: Status: Active Protocol: Document 03/28/22 16:01 IVAN (Rec: 03/28/22 16:17 IVAN [email or web address]) Nutrition Notes Initial or Follow up Reassessment Current Diagnosis Hypertension,Respiratory Failure,Hyperlipidemia Other Pertinent Diagnosis Asp pneu, acute encephalopathy , seizure d/o, partial blindness Current Diet TF - Vital AF 1.2 at 50ml/hr Labs/Tests Reviewed Pertinent Medications Reviewed Height 5 ft 3 in Weight 63.2 kg [place] Body Weight (kg) 56.36 BMI 24.7 Weight change and time frame Bed scale still not working Subjective/Other Information Pt remains on vent support; still awaiting decision on guardianship for trach/PEG placement. Pt continues to tolerate TF at goal rate. Last BM was 03/25 per RN verbal report. Pt receiving 100ml water flush q4h now. Per WOCN , sacral wound measuring 8.0 x 6.0 x 0.2; wound bed is 75% pink with 25% yellow slough. RN informed of intent to change TF formula to Promote. Percent of energy/protein needs met: 90% energy 100% pro Burn Absent Trauma Absent #1 Nutrition Diagnosis Inadequate oral intake Diagnosis Progress(for reassessment Continues documentation) Is patient on ventilator? Yes Is Patient Ambulatory and/or Out of Bed No REE-([facility]-confined to bed) [phone] Calculation Used for Recommendations [facility] Additional Notes Pro needs 1.2-2g/k-126g/ day Fluid needs 1ml/kcal Nutrition Intervention Nutrition Support: Change TF formula to Promote at 65ml/hr with 50ml water flush q4h. Kcal 1,560 Protein (gm) 98 Carbohydrates (gm) 203 Fat (gm) 41 Fluid (mL) 1,309 Fiber (gm) 0 Goal #1 TF tolerance Goal #2 TF to meet 75%-100% energy and pro needs Goal #3 Wound healing Follow-Up By: 03/31/22 Additional Comments F/U: TF formula change/ tolerance, BM <SILVIA BUCHANAN - Last Filed: 04/01/22 10:56> History Interval history: I saw and evaluated the patient. I agree with the findings and the plan of care as documented in the Nurse Practitioner's~note, with the following corrections and additions. Hospitalist Physical - Constitutional Vitals: Temp Pulse Resp BP Pulse Ox 97.9 F 71 14 121/68 97 04/01/22 07:09 04/01/22 07:51 04/01/22 07:51 04/01/22 07:43 04/01/22 07:43 HEART Score - HEART Score Troponin: Troponin T < 0.010 ng/mL (0.00-0.029) 02/18/22 21:02 Results - Labs CBC & Chem 7: 03/31/22 03:56 03/31/22 03:56 Labs: Laboratory Last Values WBC 9.7 K/mm3 (4.5-11.0) 03/31/22 03:56 RBC 3.08 M/mm3 (3.65-5.03) L 03/31/22 03:56 Hgb 9.5 gm/dl (11.8-15.2) L 03/31/22 03:56 Hct 30.1 % (35.5-45.6) L 03/31/22 03:56 MCV 98 fl (84-94) H 03/31/22 03:56 MCH 31 pg (28-32) 03/31/22 03:56 MCHC 32 % (32-34) 03/31/22 03:56 RDW 17.7 % (13.2-15.2) H 03/31/22 03:56 Plt Count 331 K/mm3 (140-440) 03/31/22 03:56 Lymph % (Auto) 7.5 % (13.4-35.0) L 03/28/22 04:06 [place] % (Auto) 10.5 % (0.0-7.3) H 03/28/22 04:06 Eos % (Auto) 0.9 % (0.0-4.3) 03/28/22 04:06 Baso % (Auto) 0.4 % (0.0-1.8) 03/28/22 04:06 Lymph # (Auto) 1.1 K/mm3 (1.2-5.4) L 03/28/22 04:06 [place] # (Auto) 1.5 K/mm3 (0.0-0.8) H 03/28/22 04:06 Eos # (Auto) 0.1 K/mm3 (0.0-0.4) 03/28/22 04:06 Baso # (Auto) 0.1 K/mm3 (0.0-0.1) 03/28/22 04:06 Add Manual Diff Complete 03/03/22 03:54 Total Counted 100 03/03/22 03:54 Seg Neutrophils % 80.7 % (40.0-70.0) H 03/28/22 04:06 Seg Neuts % (Manual) 95.0 % (40.0-70.0) H 03/03/22 03:54 Band Neutrophils % 0 % 03/03/22 03:54 Lymphocytes % (Manual) 3.0 % (13.4-35.0) L 03/03/22 03:54 Reactive Lymphs % (Man) 0 % 03/03/22 03:54 Monocytes % (Manual) 2.0 % (0.0-7.3) 03/03/22 03:54 Eosinophils % (Manual) 0 % (0.0-4.3) 03/03/22 03:54 Basophils % (Manual) 0 % (0.0-1.8) 03/03/22 03:54 Metamyelocytes % 0 % 03/03/22 03:54 Myelocytes % 0 % 03/03/22 03:54 Promyelocytes % 0 % 03/03/22 03:54 Blast Cells % 0 % 03/03/22 03:54 Nucleated RBC % Not Reportable 03/03/22 03:54 Seg Neutrophils # 11.4 K/mm3 (1.8-7.7) H 03/28/22 04:06 Seg Neutrophils # Man 18.5 K/mm3 (1.8-7.7) H 03/03/22 03:54 Band Neutrophils # 0.0 K/mm3 03/03/22 03:54 Lymphocytes # (Manual) 0.6 K/mm3 (1.2-5.4) L 03/03/22 03:54 Abs React Lymphs (Man) 0.0 K/mm3 03/03/22 03:54 Monocytes # (Manual) 0.4 K/mm3 (0.0-0.8) 03/03/22 03:54 Eosinophils # (Manual) 0.0 K/mm3 (0.0-0.4) 03/03/22 03:54 Basophils # (Manual) 0.0 K/mm3 (0.0-0.1) 03/03/22 03:54 Metamyelocytes # 0.0 K/mm3 03/03/22 03:54 Myelocytes # 0.0 K/mm3 03/03/22 03:54 Promyelocytes # 0.0 K/mm3 03/03/22 03:54 Blast Cells # 0.0 K/mm3 03/03/22 03:54 WBC Morphology Not Reportable 03/03/22 03:54 Hypersegmented Neuts Not Reportable 03/03/22 03:54 Hyposegmented Neuts Not Reportable 03/03/22 03:54 Hypogranular Neuts Not Reportable 03/03/22 03:54 Smudge Cells Not Reportable 03/03/22 03:54 Toxic Granulation Not Reportable 03/03/22 03:54 Toxic Vacuolation Not Reportable 03/03/22 03:54 Dohle Bodies Not Reportable 03/03/22 03:54 Pelger-Huet Anomaly Not Reportable 03/03/22 03:54 Lakshmi Rods Not Reportable 03/03/22 03:54 Platelet Estimate Consistent w auto 03/03/22 03:54 Clumped Platelets Not Reportable 03/03/22 03:54 Plt Clumps, EDTA Not Reportable 03/03/22 03:54 Large Platelets Not Reportable 03/03/22 03:54 Giant Platelets Not Reportable 03/03/22 03:54 Platelet Satelliting Not Reportable 03/03/22 03:54 Plt Morphology Comment Not Reportable 03/03/22 03:54 RBC Morphology Not Reportable 03/03/22 03:54 Dimorphic RBCs Not Reportable 03/03/22 03:54 Polychromasia Not Reportable 03/03/22 03:54 Hypochromasia Not Reportable 03/03/22 03:54 Poikilocytosis Not Reportable 03/03/22 03:54 Anisocytosis 1+ 03/03/22 03:54 Microcytosis Not Reportable 03/03/22 03:54 Macrocytosis Not Reportable 03/03/22 03:54 Spherocytes Not Reportable 03/03/22 03:54 Pappenheimer Bodies Not Reportable 03/03/22 03:54 Sickle Cells Not Reportable 03/03/22 03:54 Target Cells Not Reportable 03/03/22 03:54 Tear Drop Cells Not Reportable 03/03/22 03:54 Ovalocytes Not Reportable 03/03/22 03:54 Helmet Cells Not Reportable 03/03/22 03:54 [place] Bodies Not Reportable 03/03/22 03:54 [place] Rings Not Reportable 03/03/22 03:54 Achille Cells Not Reportable 03/03/22 03:54 Bite Cells Not Reportable 03/03/22 03:54 Crenated Cell Not Reportable 03/03/22 03:54 Elliptocytes Not Reportable 03/03/22 03:54 Acanthocytes (Spur) Not Reportable 03/03/22 03:54 Rouleaux Not Reportable 03/03/22 03:54 Hemoglobin C Crystals Not Reportable 03/03/22 03:54 Schistocytes Not Reportable 03/03/22 03:54 Malaria parasites Not Reportable 03/03/22 03:54 Cash Bodies Not Reportable 03/03/22 03:54 Hem Pathologist Commnt No 03/03/22 03:54 PT 16.2 Sec. (12.2-14.9) H 03/11/22 04:02 INR 1.16 (0.87-1.13) H 03/11/22 04:02 ABG pH 7.392 pH Units (7.350-7.450) 03/22/22 14:25 ABG pCO2 54.4 mm Hg 03/22/22 14:25 ABG pO2 150.5 mm Hg (80.0-90.0) H 03/22/22 14:25 ABG HCO3 32.4 mmol/L (20.0-26.0) H 03/22/22 14:25 ABG O2 Saturation 98.8 % (95.0-99.0) 03/22/22 14:25 ABG O2 Content 15.8 (0.0-44) 03/22/22 14:25 ABG Base Excess 6.2 mmol/L (-2.0-3.0) H 03/22/22 14:25 ABG Hemoglobin 11.4 gm/dl (14.0-18.0) L 03/22/22 14:25 ABG Carboxyhemoglobin 1.6 % (0.0-5.0) 03/22/22 14:25 ABG Methemoglobin 0.6 % (0.0-1.5) 03/22/22 14:25 Oxyhemoglobin 96.6 % (95.0-99.0) 03/22/22 14:25 FiO2 30 % 03/22/22 14:25 Sodium 135 mmol/L (137-145) L 03/31/22 03:56 Potassium 4.5 mmol/L (3.6-5.0) 03/31/22 03:56 Chloride 97.4 mmol/L (98-107) L 03/31/22 03:56 Carbon Dioxide 31 mmol/L (22-30) H 03/31/22 03:56 Anion Gap 11 mmol/L 03/31/22 03:56 BUN 18 mg/dL (9-20) 03/31/22 03:56 Creatinine 0.5 mg/dL (0.8-1.3) L 03/31/22 03:56 Estimated GFR > 60 ml/min 03/31/22 03:56 BUN/Creatinine Ratio 36 % 03/31/22 03:56 Glucose 102 mg/dL (75-100) H 03/31/22 03:56 POC Glucose 118 mg/dL (70-105) H 04/01/22 00:09 Lactic Acid 1.20 mmol/L (0.7-2.0) 02/18/22 21:02 Calcium 8.8 mg/dL (8.4-10.2) 03/31/22 03:56 Phosphorus 3.50 mg/dL (2.5-4.5) 03/20/22 04:09 Magnesium 2.00 mg/dL (1.7-2.3) 03/20/22 04:09 Total Bilirubin 0.30 mg/dL (0.1-1.2) 03/10/22 03:57 AST 17 units/L (5-40) 03/10/22 03:57 ALT 18 units/L (7-56) 03/10/22 03:57 Alkaline Phosphatase 89 units/L (35-129) 03/10/22 03:57 Ammonia 14.0 umol/L (25-60) L 02/18/22 23:22 Troponin T < 0.010 ng/mL (0.00-0.029) 02/18/22 21:02 Total Protein 6.6 g/dL (6.3-8.2) 03/10/22 03:57 Albumin 1.9 g/dL (3.9-5) L 03/10/22 03:57 Albumin/Globulin Ratio 0.4 % 03/10/22 03:57 Urine Color Yellow (Yellow) 03/27/22 08:36 Urine Turbidity Cloudy (Clear) 03/27/22 08:36 Urine pH 7.0 (5.0-7.0) 02/18/22 Unknown Ur Specific [place] 1.015 (1.003-1.030) 02/18/22 Unknown Specific [place] (Man) 1.020 (1.003-1.030) 03/27/22 08:36 Urine Protein <15 mg/dl mg/dL (Negative) 02/18/22 Unknown Ur Protein (Man) 1+ mg/dL (Negative) 03/27/22 08:36 Urine Glucose (UA) Negative mg/dL (Negative) 02/18/22 Unknown Urine Ketones Negative mg/dL (Negative) 02/18/22 Unknown Ur Ketones (Man) Negative (Negative) 03/27/22 08:36 Urine Blood Trace (Negative) 02/18/22 Unknown Urine Nitrite Negative (Negative) 02/18/22 Unknown Ur Nitrite (Man) Negative (Negative) 03/27/22 08:36 Ur Reducing Substances Not Reportable 03/27/22 08:36 Urine Bilirubin Negative (Negative) 02/18/22 Unknown Urine Bilirubin (Man) Negative (Negative) 03/27/22 08:36 Urine Ictotest Not Reportable 03/27/22 08:36 Urine Urobilinogen < 2.0 mg/dL (<2.0) 02/18/22 Unknown Ur Leukocyte Esterase Negative (Negative) 02/18/22 Unknown Leukocyte Esterase (Man) Moderate (Negative) 03/27/22 08:36 Urine WBC (Auto) > 182.0 /HPF (0.0-6.0) H 03/27/22 08:36 Urine RBC (Auto) 9.0 /HPF (0.0-6.0) 03/27/22 08:36 U Epithel Cells (Auto) < 1.0 /HPF (0-13.0) 03/27/22 08:36 Urine RBC (Manual) 1+ (Negative) 03/27/22 08:36 Urine Mucus Few /HPF 03/27/22 08:36 Urine Yeast (Budding) 2+ /HPF 03/27/22 08:36 Urine Opiates Screen Negative 02/18/22 Unknown Urine Methadone Screen Negative 02/18/22 Unknown Ur Barbiturates Screen Negative 02/18/22 Unknown Ur Phencyclidine Scrn Negative 02/18/22 Unknown Ur Amphetamines Screen Negative 02/18/22 Unknown U Benzodiazepines Scrn Negative 02/18/22 Unknown Urine Cocaine Screen Negative 02/18/22 Unknown U Marijuana (THC) Screen Negative 02/18/22 Unknown Drugs of Abuse Note Disclamer 02/18/22 Unknown Plasma/Serum Alcohol < 0.01 % (0-0.07) 02/18/22 21:02 Summers/IV: Voiding Method Indwelling Catheter Active Medications - Current Medications Current Medications: Generic Name Dose Route Start Last Admin Trade Name Freq PRN Reason Stop Dose Admin Acetaminophen 650 mg 03/03/22 09:00 Acetaminophen 325 Mg/10.15 Ml Oral Liqd Unit Dose FEEDTUBE Q4H PRN Pain, Mild (1-3); TEMP > 100.4 Albuterol 2.5 mg 03/12/22 20:00 04/01/22 07:50 Albuterol 2.5 Mg/3 Ml Nebu IH 2.5 mg Q6HRT LAZARUS Administration Famotidine 20 mg 02/25/22 10:00 04/01/22 09:20 Famotidine 20 Mg Tab FEEDTUBE 20 mg BID LAZARUS Administration Heparin Sodium (Porcine) 5,000 unit 02/19/22 06:00 04/01/22 05:22 Heparin 5,000 Unit/1 Ml Vial SUB-Q 5,000 unit Q8HR LAZARUS Administration Levetiracetam 500 mg 02/25/22 22:00 04/01/22 09:20 Levetiracetam 500 Mg/5 Ml Oral Liqd FEEDTUBE 500 mg BID LAZARUS Administration Levothyroxine Sodium 25 mcg 02/26/22 06:00 04/01/22 05:22 Levothyroxine 25 Mcg Tab FEEDTUBE 25 mcg QAM@0600 LAZARUS Administration Magnesium Hydroxide 30 ml 02/19/22 02:02 Magnesium Hydroxide (Mom) Oral Liqd Udc PO Q4H PRN Constipation Midodrine 2.5 mg 03/19/22 12:00 04/01/22 09:20 Midodrine 2.5 Mg Tab FEEDTUBE 2.5 mg TID@0800,1200,1600 LAZARUS Administration Multi-Ingred Cream/Lotion/Oil/Oint 1 applic 02/24/22 15:05 Mineral Oil/Petrolatum, White Ophth Oint 3.5 Gm OU Q4HR PRN Dry Eye(s) Ondansetron HCl 4 mg 02/19/22 02:02 Ondansetron 4 Mg/2 Ml Inj IV Q8H PRN Nausea And Vomiting Pravastatin Sodium 40 mg 02/25/22 22:00 03/31/22 21:01 Pravastatin 40 Mg Tab FEEDTUBE 40 mg QHS LAZARUS Administration Senna/Docusate Sodium 1 tab 02/24/22 22:00 03/31/22 23:35 Sennosides/Docusate Sodium 8.6/50 Mg Tab FEEDTUBE 1 tab BID ALZARUS Administration Sodium Chloride 10 ml 02/19/22 10:00 04/01/22 09:20 Sodium Chloride 0.9% 10 Ml Flush Syringe IV 10 ml BID LAZARUS Administration Sodium Chloride 10 ml 02/19/22 02:02 03/03/22 14:21 Sodium Chloride 0.9% 10 Ml Flush Syringe IV 10 ml PRN PRN Administration LINE FLUSH Nutrition/Malnutrition Assess - Dietary Evaluation Nutrition/Malnutrition Findings: Nutrition Notes Start: 02/19/22 14:29 Freq: Status: Active Protocol: Document 03/31/22 14:18 IVAN (Rec: 03/31/22 14:23 MEISAI [id number]) Nutrition Notes Initial or Follow up Reassessment Current Diagnosis Hypertension,Respiratory Failure,Hyperlipidemia Other Pertinent Diagnosis Asp pneu, acute encephalopathy , seizure d/o, partial blindness Current Diet TF - Promote at 65ml/hr Labs/Tests Na 135 CO2 - 31 Pertinent Medications Reviewed Height 5 ft 3 in Weight 63.2 kg [place] Body Weight (kg) 56.36 BMI 24.7 Subjective/Other Information Pt remains on vent support; still awaiting decision on guardianship for trach/PEG placement. Observed Promote infusing at 50ml/hr; RN informed of goal rate. BM x 1 on yesterday. Percent of energy/protein needs met: 75% energy 99% pro Burn Absent Trauma Absent #1 Nutrition Diagnosis Inadequate oral intake Diagnosis Progress(for reassessment Continues documentation) Is patient on ventilator? Yes Is Patient Ambulatory and/or Out of Bed No REE-([facility]-confined to bed) [phone] Calculation Used for Recommendations [facility] Additional Notes Pro needs 1.2-2g/k-126g/ day Fluid needs 1ml/kcal Nutrition Intervention Nutrition Support: Continue Promote to goal rate of 65ml/hr. Provide 50ml water flush q4h. Kcal 1,560 Protein (gm) 98 Carbohydrates (gm) 203 Fat (gm) 41 Fluid (mL) 1,309 Fiber (gm) 0 Goal #1 TF tolerance Goal #2 TF to meet 75%-100% energy and pro needs Goal #3 Wound healing Follow-Up By: 04/04/22 Additional Comments F/U: TF goal rate/tolerance
--- NOTE | 2022-03-31 12:57 | Progress Note ---
Assessment and Plan 61 y/o male with abnormal CT of chest. 03/31/22: Day 35 of intubation. CBC and chemistry is stable. Awaiting courts and hospital. 03/30/22: Day 34 of intubation. No labs today. Monitor fever as he had low grade temp early am. Rocephin finished yesterday. 03/29/22: Day 33 of intubation. WC now normal. No fever. Hard stop date on the abx. Awaiting Hospital and Court about guardianship. 03/28/22: Day 32 of intubation. WBC better. No fever. Still awaiting hospital and courts. 03/27/22: Day 31 of intubation. Given increase in WBC will treat empirically with Rocephin. Follow up urine cultures. CXR appears stable, await official read. Guarded prognosis. 03/26/22: Day 30 of Intubation. Daily PSV trials. no new recommendations. 03/25/22: Day 29 of intubation. RT to try PSV this am, hesistant given low sats but improved with suctioning. Still no word from the hospital in regards to guardianship. I do not feel comfortable with attempting extubation again on this patient given his quick failure and difficult re-intubation. 03/24/22: Day 28 of intubation. reviewed my partners notes from the weekend. Glad patient is tolerating PSV however do not see conventional extubation in the near future given patient's mental status and how fast he failed extubation (within an hour) on his first attempt. Patient was also a difficult re- intubation. Follow up with CM and hospital tomorrow. Continue supportive measures. 03/21/22: Day 25 of intubation. No new updates from the hospital about guardianship. Wound care saw on yesterday. Continue daily PSV trials as tolerated. Guarded prognosis. 03/20/22: Day 24 of intubation. No new recommendations. Still awaiting hospital update in regards to guardianship so that decisions can be made. Continue supportive measures. Wound care to see today. 03/19/22: Day 23 of intubation. Prognosis is still guarded. Will discuss with RT about attempts at daily PSV trials. Per notes, Wound care to see , wound was present on admission. 03/18/22: Day 22 of intubation. Prognosis remains guarded. Not able to obtain trach and peg with consent. Continue daily PSV trials as tolerated. 03/17/22: Day 21 of intubation. Still awaiting some form of decision maker for trach and peg placement. Guarded prognosis. 03/16/22: Day 20 of intubation. BP stable. Continue midodrine. Awaiting emergency guardianship from Court to obtain consent for trach and peg. Guarded prognosis. 03/15/22: Day 19 of intubation. BP now is marginal more regularly. Will give an additional liter bolus of LR now. May need to increase Midodrine back to 5. Needs trach in order to be safely weaned from ventilator. Will need peg tube placement in addition to trach. Prognosis remains guarded. Continue PSV trials as tolerated. 03/14/22: Day 18 of intubation. Vitals stable and mental status is unchanged. Still in need of tracheostomy as well as peg tube placement. No guardian appointed yet. 03/13/22: Day 17 of intubation. Agree with bolus and restarting of midodrine. was stopped previously secondary to bradycardia. If patient spikes temp, will culture blood and urine and repeat CXR. Continue daily PSV trials to assess ability for vent liberation. Continues to need trach however no family/guardian to provide consent. Guarded prognosis. 03/12/22: Day 16 of intubation. Following up with hospital in regards to guardian. Continue supportive measures. Guarded prognosis. 03/11/22: hospital now attempting to find emergency guardian to have consent for trach as ethics committee cannot comment on this matter so unable to help. Until then will remain intubated orally. Failed PSV yesterday, will continue to attempt on daily basis. Unfortunate situation. Guarded prognosis. 03/10/22: Today nuñez day 14 of intubation. Given patient's mental state and increased risk of aspiration, the likelihood of conventional extubation with success is very very slim and the patient has already failed this in an extremely short period of time (less than 1 hour). I suspect that he will fail again if tried and could create more difficult reintubation as he was a difficult reintubation on his failed extubation attempt. To prevent further decline and potential complications of prolonged mechanical ventilation, will discuss with ethics and the hospital to use 2 physician consent to obtain trach and peg for this patient with hopes of liberating him from the mechanical ventilator. he has very minimal vent requirements but as been stated several times above, he continues to aspirate and failed conventional extubation almost immediately. Will consult surgery today. Dr. Mancia is prepared to sign consent as well as myself. Hopeful surgery will be on board with this. Continue supportive care for now. Attempt daily PSV trials. 03/07/22: Daily PSV trials as tolerated. Still no one to step up as adult friend. patient has now been intubated since 02/24/22 and is approaching the time period in which prolonged mechanical ventilation could lead to significant complications that could be detrimental to health (infection, stenosis, malacia etc). Will discuss again with ethics but in regards to medical necessity, may need to consider two physician consent if no one is able to claim responsibility for this patient. He is a full code and we must work in his best interest to prevent further harm. Continue supportive measures but he is not a candidate for conventional extubation given his mental state, despite being on minimal support. He has already failed this before. 03/06/22: PSV trials daily. Will discuss with RT. Spoke with ethics. Plan in place and awaiting on news from [facility] and [facility]. Continue supportive measures. Patient has been intubated since 02/24/22 and is approaching the 2 week shadi of intubation will need to make decisions soon to avoid unnecessary complications related to prolonged intubation. 03/05/22: Will follow up with ethics today. Awaiting some guidance about consent for trach and peg. This is a medical necessity to liberate patient from mechanical ventilation. Continue supportive measures. Ok with daily PSV trials 03/04/22: Follow up with ethics later this afternoon. Spoke with RT and patient does have cuff leak, will stop steroids. Stopping midodrine as BP is stable and bradycardia likely from this. 03/03/22: Await ethics eval. CM has spoken with state as well. Daily cuff leaks. Will start to wean steroids tomorrow. Midodrine can cause bradycardia. If continues or worsens will stop. Guarded prognosis. 03/02/22: Continue supportive measures. Await ethics consult before surgery consult for trach and peg. no further need for fluid boluses. Will continue stress dose steroids but have daily air leak checks by RT. Still will need trach, will not attempt extubation again. Guarded prognosis. 03/01/22: Patient is having increased urine output. This could be the cause of new onset hypotension. Will bolus 2 more liters of LR now and reassess. If this continues may need to work up for SIADH including repeat head CT. Follow up ethics review of case. Will need trach for ventilator liberation. Overall prognosis remains guarded. 02/28/22: Will obtain CT neck, noncontrast to look for airway edema or other possible etiologies for failure. Needs ethics consult as given patient's mental state, inability to clear secretions appropriately, will need trach now that he has failed extubation. However he has no family and no POA so no one to give consent. Continue supportive measures. Guarded prognosis. 02/27/22: Continue improvement of oxygenation. Will drop PEEP down today with goal of being at 6 by in the morning. Will repeat CT scan to confirm improvem ent as no endobronchial lesion was seen, but also to make sure no parenchymal mass. There was no evidence of extrinsic compression during bronch. Likely extubation tomorrow post CT. 02/26/22: Repeat CXR now. Wean Vent as tolerated. Hopeful extubation soon. Mucous removed. NO ENDOBRONCHIAL LESION/MASS 02/25/22: Bronch tentatively planned for tomorrow with therapeutic scope. Awaiting GI lab to give a time. NPO after midnight. Continue high PEEP 02/24/22: WIll attempt to bronch tomorrow morning. NPO after midnight. Just received word from GI lab they are not able to do bronch tomorrow. Cancel NPO order. Continue to feed patient. Repeat ABG in AM along with CXR. 02/21/22: No new pulm recs for today. Please obtain repeat CXR likely on Thursday. If patient happens to get worse, likely not a candidate for bipap given his weak cough and mental state and inability to communicate. If worsens and requires intubation, will bronch then under emergent circumstances if no POA or family is able to be located. Continue CPT. Will discuss with RT about NT sucti oning. 02/20/22: Saw speech while on the floor. Would like patient to be NPO now. Discussed with nurse on floor and with IMS. Same recs pulm way as yesterday. Would benefit from bronch if able to get consent as this is not emergent. Continue CPT and q shift NT suctioning. Reviewed admission in the past and of note, patient was recently admitted last month and had a CXR done on the 29 of January that was normal. Given this patient's medical history and the history that I obtained from the nursing staff that at the [facility] he was eating solid foods, I suspect that this is aspiration, possibly of a foreign body (most likely food) with atelectasis of the right lower lobe. It is highly unlikely that a mass evolved in size in less than a months time and patient, besides age, has no real risk factors for lung carcinoma. Discussed with the nurse and unfortunately there is no identifiable person that is able to give consent. Bronchoscopy is needed in the case to evaluate to see if lung mass is there vs foreign body, but at this time not able to do. In the meanwhile will recommend the following. 1. Will order CPT with neb therapy 3x daily 2. Suggest maybe NT suctioning q shift. May use nasal trumpet, however do not leave this device in the patient 3. Aspiration precautions 4. Consider speech eval to assess swallowing. Will continue to follow. CCT 31 minutes. Subjective Date of service: 03/31/22 Principal diagnosis: f/u Acute respiratory failure Interval history: no acute events. Objective Vital Signs - 12hr 03/31/22 03/31/22 03/31/22 01:00 02:00 03:00 Temperature Pulse Rate 81 78 83 Pulse Rate [ Anterior Bilateral Throughout] Pulse Rate [ From Monitor] Pulse Rate [ Right Radial] Respiratory 18 14 14 Rate Respiratory Rate [Anterior Bilateral Throughout] Blood Pressure 112/60 119/59 119/59 O2 Sat by Pulse 94 94 Oximetry 03/31/22 03/31/22 03/31/22 03:12 03:14 04:00 Temperature 98.9 F Pulse Rate 83 81 Pulse Rate [ 78 Anterior Bilateral Throughout] Pulse Rate [ 82 From Monitor] Pulse Rate [ Right Radial] Respiratory 15 12 Rate Respiratory 16 Rate [Anterior Bilateral Throughout] Blood Pressure 119/67 O2 Sat by Pulse 93 98 Oximetry 03/31/22 03/31/22 03/31/22 04:37 05:49 06:00 Temperature Pulse Rate 73 66 73 Pulse Rate [ Anterior Bilateral Throughout] Pulse Rate [ From Monitor] Pulse Rate [ 70 Right Radial] Respiratory 13 16 Rate Respiratory Rate [Anterior Bilateral Throughout] Blood Pressure 119/67 99/54 99/54 O2 Sat by Pulse 100 100 99 Oximetry 03/31/22 03/31/22 03/31/22 07:00 07:08 08:00 Temperature 97.8 F Pulse Rate 65 71 Pulse Rate [ Anterior Bilateral Throughout] Pulse Rate [ From Monitor] Pulse Rate [ Right Radial] Respiratory 15 14 Rate Respiratory Rate [Anterior Bilateral Throughout] Blood Pressure 103/53 92/44 O2 Sat by Pulse 99 99 Oximetry 03/31/22 03/31/22 03/31/22 08:10 08:25 08:30 Temperature Pulse Rate 79 Pulse Rate [ 84 Anterior Bilateral Throughout] Pulse Rate [ From Monitor] Pulse Rate [ Right Radial] Respiratory Rate Respiratory 14 Rate [Anterior Bilateral Throughout] Blood Pressure 103/53 O2 Sat by Pulse 95 100 Oximetry 03/31/22 03/31/22 03/31/22 09:00 09:47 10:01 Temperature Pulse Rate 93 H 99 H 94 H Pulse Rate [ Anterior Bilateral Throughout] Pulse Rate [ From Monitor] Pulse Rate [ Right Radial] Respiratory 18 19 20 Rate Respiratory Rate [Anterior Bilateral Throughout] Blood Pressure 86/45 102/46 130/64 O2 Sat by Pulse 100 98 93 Oximetry 03/31/22 11:21 Temperature 97.7 F Pulse Rate Pulse Rate [ Anterior Bilateral Throughout] Pulse Rate [ From Monitor] Pulse Rate [ Right Radial] Respiratory Rate Respiratory Rate [Anterior Bilateral Throughout] Blood Pressure O2 Sat by Pulse Oximetry Constitutional: alert, other (critically ill on ventilator) Eyes: non-icteric ENT: oropharynx moist Neck: supple Effort: normal Ascultation: Bilateral: diminished breath sounds, rhonchi Cardiovascular: regular rate and rhythm (no mrg) Gastrointestinal: normoactive bowel sounds, soft, non-tender (on o2 vest in place), non-distended Integumentary: normal Extremities: no cyanosis, no edema Neurologic: other (awake) Psychiatric: other (unable to assess) CBC and BMP: 03/31/22 03:56 03/31/22 03:56 ABG, PT/INR, D-dimer: ABG ABG pH 7.392 pH Units (7.350-7.450) 03/22/22 14:25 ABG pCO2 54.4 mm Hg 03/22/22 14:25 ABG pO2 150.5 mm Hg (80.0-90.0) H 03/22/22 14:25 ABG O2 Saturation 98.8 % (95.0-99.0) 03/22/22 14:25 PT/INR, D-dimer PT 16.2 Sec. (12.2-14.9) H 03/11/22 04:02 INR 1.16 (0.87-1.13) H 03/11/22 04:02 Abnormal lab findings: Abnormal Labs 02/18/22 02/18/22 02/18/22 19:34 21:02 21:02 WBC RBC Hgb Hct MCV 101 H MCH 34 H MCHC RDW 16.1 H Lymph % (Auto) Tate % (Auto) 12.4 H Lymph # (Auto) Tate # (Auto) 1.2 H Seg Neutrophils % 73.0 H Seg Neuts % (Manual) Lymphocytes % (Manual) Seg Neutrophils # Seg Neutrophils # Man Lymphocytes # (Manual) PT 16.9 H INR 1.20 H ABG pH ABG pO2 ABG HCO3 ABG O2 Saturation ABG Base Excess ABG Hemoglobin Oxyhemoglobin Sodium Potassium Chloride Carbon Dioxide BUN Creatinine Glucose POC Glucose 116 H Calcium Phosphorus AST ALT Ammonia Albumin Urine WBC (Auto) 02/18/22 02/18/22 02/18/22 21:02 22:45 23:22 WBC RBC Hgb Hct MCV MCH MCHC RDW Lymph % (Auto) Tate % (Auto) Lymph # (Auto) Tate # (Auto) Seg Neutrophils % Seg Neuts % (Manual) Lymphocytes % (Manual) Seg Neutrophils # Seg Neutrophils # Man Lymphocytes # (Manual) PT INR ABG pH ABG pO2 55.6 L ABG HCO3 28.4 H ABG O2 Saturation 91.5 L ABG Base Excess 3.8 H ABG Hemoglobin 13.2 L Oxyhemoglobin 89.6 L Sodium Potassium 5.1 H Chloride Carbon Dioxide BUN Creatinine Glucose 102 H POC Glucose Calcium Phosphorus AST 48 H ALT 64 H Ammonia 14.0 L Albumin 2.7 L Urine WBC (Auto) 02/20/22 02/20/22 02/23/22 04:59 04:59 06:29 WBC 11.4 H RBC Hgb Hct MCV 103 H MCH 33 H MCHC RDW 16.5 H Lymph % (Auto) 5.5 L Tate % (Auto) 12.1 H Lymph # (Auto) 0.6 L Tate # (Auto) 1.4 H Seg Neutrophils % 81.4 H Seg Neuts % (Manual) Lymphocytes % (Manual) Seg Neutrophils # 9.2 H Seg Neutrophils # Man Lymphocytes # (Manual) PT INR ABG pH ABG pO2 ABG HCO3 ABG O2 Saturation ABG Base Excess ABG Hemoglobin Oxyhemoglobin Sodium Potassium Chloride Carbon Dioxide BUN Creatinine Glucose POC Glucose 113 H Calcium 8.2 L Phosphorus AST ALT Ammonia Albumin Urine WBC (Auto) 02/23/22 02/23/22 02/24/22 11:22 16:10 00:02 WBC RBC Hgb Hct MCV MCH MCHC RDW Lymph % (Auto) Tate % (Auto) Lymph # (Auto) Tate # (Auto) Seg Neutrophils % Seg Neuts % (Manual) Lymphocytes % (Manual) Seg Neutrophils # Seg Neutrophils # Man Lymphocytes # (Manual) PT INR ABG pH ABG pO2 ABG HCO3 ABG O2 Saturation ABG Base Excess ABG Hemoglobin Oxyhemoglobin Sodium Potassium Chloride Carbon Dioxide BUN Creatinine Glucose POC Glucose 108 H 115 H 109 H Calcium Phosphorus AST ALT Ammonia Albumin Urine WBC (Auto) 02/24/22 02/24/22 02/24/22 11:05 11:05 13:20 WBC RBC 3.55 L Hgb Hct MCV 100 H MCH 34 H MCHC RDW 15.6 H Lymph % (Auto) Tate % (Auto) Lymph # (Auto) Tate # (Auto) Seg Neutrophils % Seg Neuts % (Manual) Lymphocytes % (Manual) Seg Neutrophils # Seg Neutrophils # Man Lymphocytes # (Manual) PT INR ABG pH ABG pO2 ABG HCO3 ABG O2 Saturation ABG Base Excess ABG Hemoglobin Oxyhemoglobin Sodium 146 H Potassium 3.2 L D Chloride 108.4 H Carbon Dioxide BUN Creatinine 0.5 L Glucose POC Glucose 111 H Calcium 7.9 L Phosphorus 2.20 L AST ALT Ammonia Albumin Urine WBC (Auto) 02/24/22 02/24/22 02/24/22 16:30 17:03 20:25 WBC RBC Hgb Hct MCV MCH MCHC RDW Lymph % (Auto) Tate % (Auto) Lymph # (Auto) Tate # (Auto) Seg Neutrophils % Seg Neuts % (Manual) Lymphocytes % (Manual) Seg Neutrophils # Seg Neutrophils # Man Lymphocytes # (Manual) PT INR ABG pH 7.319 L ABG pO2 65.3 L ABG HCO3 31.3 H ABG O2 Saturation 92.2 L ABG Base Excess 3.8 H ABG Hemoglobin 12.0 L Oxyhemoglobin 90.3 L Sodium Potassium Chloride 107.9 H Carbon Dioxide BUN 8 L Creatinine 0.4 L Glucose POC Glucose 108 H Calcium 7.6 L Phosphorus 4.60 H D AST ALT Ammonia Albumin Urine WBC (Auto) 02/25/22 02/25/22 02/25/22 04:12 04:12 05:05 WBC RBC 3.07 L Hgb 10.2 L Hct 31.5 L MCV 103 H MCH 33 H MCHC RDW 15.6 H Lymph % (Auto) Tate % (Auto) Lymph # (Auto) Tate # (Auto) Seg Neutrophils % Seg Neuts % (Manual) Lymphocytes % (Manual) Seg Neutrophils # Seg Neutrophils # Man Lymphocytes # (Manual) PT INR ABG pH ABG pO2 ABG HCO3 32.5 H ABG O2 Saturation ABG Base Excess 5.6 H ABG Hemoglobin 10.8 L Oxyhemoglobin 94.8 L Sodium Potassium 3.5 L Chloride 107.7 H Carbon Dioxide BUN Creatinine 0.5 L Glucose POC Glucose Calcium 7.0 L Phosphorus AST ALT Ammonia Albumin Urine WBC (Auto) 02/25/22 02/25/22 02/26/22 12:05 18:33 00:07 WBC RBC Hgb Hct MCV MCH MCHC RDW Lymph % (Auto) Tate % (Auto) Lymph # (Auto) Tate # (Auto) Seg Neutrophils % Seg Neuts % (Manual) Lymphocytes % (Manual) Seg Neutrophils # Seg Neutrophils # Man Lymphocytes # (Manual) PT INR ABG pH ABG pO2 ABG HCO3 ABG O2 Saturation ABG Base Excess ABG Hemoglobin Oxyhemoglobin Sodium Potassium Chloride Carbon Dioxide BUN Creatinine Glucose POC Glucose 127 H 125 H 114 H Calcium Phosphorus AST ALT Ammonia Albumin Urine WBC (Auto) 02/26/22 02/26/22 02/26/22 03:30 04:42 11:34 WBC RBC Hgb Hct MCV MCH MCHC RDW Lymph % (Auto) Tate % (Auto) Lymph # (Auto) Tate # (Auto) Seg Neutrophils % Seg Neuts % (Manual) Lymphocytes % (Manual) Seg Neutrophils # Seg Neutrophils # Man Lymphocytes # (Manual) PT INR ABG pH ABG pO2 143.2 H ABG HCO3 33.2 H ABG O2 Saturation ABG Base Excess 6.5 H ABG Hemoglobin 9.4 L Oxyhemoglobin Sodium Potassium Chloride Carbon Dioxide 32 H BUN Creatinine 0.7 L Glucose POC Glucose 114 H Calcium 8.0 L Phosphorus AST ALT Ammonia Albumin Urine WBC (Auto) 02/26/22 02/26/22 02/27/22 18:17 23:37 04:19 WBC 13.7 H RBC 2.78 L Hgb 9.3 L Hct 28.5 L MCV 103 H MCH 33 H MCHC RDW 16.3 H Lymph % (Auto) Tate % (Auto) Lymph # (Auto) Tate # (Auto) Seg Neutrophils % Seg Neuts % (Manual) Lymphocytes % (Manual) Seg Neutrophils # Seg Neutrophils # Man Lymphocytes # (Manual) PT INR ABG pH ABG pO2 ABG HCO3 ABG O2 Saturation ABG Base Excess ABG Hemoglobin Oxyhemoglobin Sodium Potassium Chloride Carbon Dioxide BUN Creatinine Glucose POC Glucose 111 H 117 H Calcium Phosphorus AST ALT Ammonia Albumin Urine WBC (Auto) 02/27/22 02/27/22 02/27/22 04:19 04:35 05:27 WBC RBC Hgb Hct MCV MCH MCHC RDW Lymph % (Auto) Tate % (Auto) Lymph # (Auto) Tate # (Auto) Seg Neutrophils % Seg Neuts % (Manual) Lymphocytes % (Manual) Seg Neutrophils # Seg Neutrophils # Man Lymphocytes # (Manual) PT INR ABG pH ABG pO2 96.3 H ABG HCO3 34.9 H ABG O2 Saturation ABG Base Excess 8.1 H ABG Hemoglobin Oxyhemoglobin Sodium Potassium Chloride Carbon Dioxide 31 H BUN Creatinine 0.6 L Glucose 107 H POC Glucose 133 H Calcium 7.8 L Phosphorus AST ALT Ammonia Albumin Urine WBC (Auto) 02/27/22 02/27/22 02/28/22 11:15 23:35 03:38 WBC 13.3 H RBC 3.05 L Hgb 10.2 L Hct 30.7 L MCV 101 H MCH 33 H MCHC RDW 16.1 H Lymph % (Auto) Tate % (Auto) Lymph # (Auto) Tate # (Auto) Seg Neutrophils % Seg Neuts % (Manual) Lymphocytes % (Manual) Seg Neutrophils # Seg Neutrophils # Man Lymphocytes # (Manual) PT INR ABG pH ABG pO2 ABG HCO3 ABG O2 Saturation ABG Base Excess ABG Hemoglobin Oxyhemoglobin Sodium Potassium Chloride Carbon Dioxide BUN Creatinine Glucose POC Glucose 129 H 122 H Calcium Phosphorus AST ALT Ammonia Albumin Urine WBC (Auto) 02/28/22 02/28/22 02/28/22 04:50 05:30 09:30 WBC RBC Hgb Hct MCV MCH MCHC RDW Lymph % (Auto) Tate % (Auto) Lymph # (Auto) Tate # (Auto) Seg Neutrophils % Seg Neuts % (Manual) Lymphocytes % (Manual) Seg Neutrophils # Seg Neutrophils # Man Lymphocytes # (Manual) PT INR ABG pH 7.451 H 7.488 H ABG pO2 77.0 L ABG HCO3 37.1 H 34.6 H ABG O2 Saturation ABG Base Excess 11.5 H 10.1 H ABG Hemoglobin 10.1 L 10.0 L Oxyhemoglobin Sodium Potassium Chloride Carbon Dioxide BUN Creatinine Glucose POC Glucose 121 H Calcium Phosphorus AST ALT Ammonia Albumin Urine WBC (Auto) 02/28/22 02/28/22 03/01/22 11:36 23:07 04:27 WBC 12.5 H RBC 2.85 L Hgb 9.5 L Hct 28.6 L MCV 101 H MCH 33 H MCHC RDW 15.7 H Lymph % (Auto) Tate % (Auto) Lymph # (Auto) Tate # (Auto) Seg Neutrophils % Seg Neuts % (Manual) Lymphocytes % (Manual) Seg Neutrophils # Seg Neutrophils # Man Lymphocytes # (Manual) PT INR ABG pH ABG pO2 ABG HCO3 ABG O2 Saturation ABG Base Excess ABG Hemoglobin Oxyhemoglobin Sodium Potassium Chloride Carbon Dioxide BUN Creatinine Glucose POC Glucose 112 H 107 H Calcium Phosphorus AST ALT Ammonia Albumin Urine WBC (Auto) 03/01/22 03/01/22 03/01/22 04:27 05:05 11:29 WBC RBC Hgb Hct MCV MCH MCHC RDW Lymph % (Auto) Tate % (Auto) Lymph # (Auto) Tate # (Auto) Seg Neutrophils % Seg Neuts % (Manual) Lymphocytes % (Manual) Seg Neutrophils # Seg Neutrophils # Man Lymphocytes # (Manual) PT INR ABG pH ABG pO2 ABG HCO3 ABG O2 Saturation ABG Base Excess ABG Hemoglobin Oxyhemoglobin Sodium 147 H D Potassium Chloride Carbon Dioxide 34 H BUN Creatinine 0.6 L Glucose 128 H POC Glucose 119 H 121 H Calcium 7.9 L Phosphorus AST ALT Ammonia Albumin Urine WBC (Auto) 03/01/22 03/01/22 03/02/22 16:15 23:57 05:18 WBC RBC Hgb Hct MCV MCH MCHC RDW Lymph % (Auto) Tate % (Auto) Lymph # (Auto) Tate # (Auto) Seg Neutrophils % Seg Neuts % (Manual) Lymphocytes % (Manual) Seg Neutrophils # Seg Neutrophils # Man Lymphocytes # (Manual) PT INR ABG pH ABG pO2 110.5 H ABG HCO3 33.0 H ABG O2 Saturation ABG Base Excess 7.4 H ABG Hemoglobin 8.6 L Oxyhemoglobin Sodium Potassium Chloride Carbon Dioxide BUN Creatinine Glucose POC Glucose 134 H 140 H Calcium Phosphorus AST ALT Ammonia Albumin Urine WBC (Auto) 03/02/22 03/02/22 03/02/22 05:53 09:04 09:04 WBC 15.0 H RBC 3.00 L Hgb 9.7 L Hct 30.7 L MCV 102 H MCH MCHC RDW 16.6 H Lymph % (Auto) Tate % (Auto) Lymph # (Auto) Tate # (Auto) Seg Neutrophils % Seg Neuts % (Manual) Lymphocytes % (Manual) Seg Neutrophils # Seg Neutrophils # Man Lymphocytes # (Manual) PT INR ABG pH ABG pO2 ABG HCO3 ABG O2 Saturation ABG Base Excess ABG Hemoglobin Oxyhemoglobin Sodium Potassium Chloride Carbon Dioxide 31 H BUN Creatinine 0.6 L Glucose 157 H POC Glucose 158 H Calcium 7.9 L Phosphorus AST ALT Ammonia Albumin Urine WBC (Auto) 03/02/22 03/02/22 03/02/22 11:36 16:25 23:17 WBC RBC Hgb Hct MCV MCH MCHC RDW Lymph % (Auto) Tate % (Auto) Lymph # (Auto) Tate # (Auto) Seg Neutrophils % Seg Neuts % (Manual) Lymphocytes % (Manual) Seg Neutrophils # Seg Neutrophils # Man Lymphocytes # (Manual) PT INR ABG pH ABG pO2 ABG HCO3 ABG O2 Saturation ABG Base Excess ABG Hemoglobin Oxyhemoglobin Sodium Potassium Chloride Carbon Dioxide BUN Creatinine Glucose POC Glucose 160 H 132 H 157 H Calcium Phosphorus AST ALT Ammonia Albumin Urine WBC (Auto) 03/03/22 03/03/22 03/03/22 03:54 03:54 05:27 WBC 19.5 H RBC 2.79 L Hgb 9.0 L Hct 28.6 L MCV 102 H MCH MCHC RDW 16.2 H Lymph % (Auto) Tate % (Auto) Lymph # (Auto) Tate # (Auto) Seg Neutrophils % Seg Neuts % (Manual) 95.0 H Lymphocytes % (Manual) 3.0 L Seg Neutrophils # Seg Neutrophils # Man 18.5 H Lymphocytes # (Manual) 0.6 L PT INR ABG pH ABG pO2 ABG HCO3 ABG O2 Saturation ABG Base Excess ABG Hemoglobin Oxyhemoglobin Sodium Potassium Chloride Carbon Dioxide BUN Creatinine 0.6 L Glucose 130 H POC Glucose 149 H Calcium 8.1 L Phosphorus AST ALT Ammonia Albumin Urine WBC (Auto) 03/03/22 03/03/22 03/04/22 11:13 17:30 00:02 WBC RBC Hgb Hct MCV MCH MCHC RDW Lymph % (Auto) Tate % (Auto) Lymph # (Auto) Tate # (Auto) Seg Neutrophils % Seg Neuts % (Manual) Lymphocytes % (Manual) Seg Neutrophils # Seg Neutrophils # Man Lymphocytes # (Manual) PT INR ABG pH ABG pO2 ABG HCO3 ABG O2 Saturation ABG Base Excess ABG Hemoglobin Oxyhemoglobin Sodium Potassium Chloride Carbon Dioxide BUN Creatinine Glucose POC Glucose 139 H 138 H 157 H Calcium Phosphorus AST ALT Ammonia Albumin Urine WBC (Auto) 03/04/22 03/04/22 03/04/22 05:32 05:32 05:48 WBC 16.1 H RBC 2.81 L Hgb 9.3 L Hct 28.8 L MCV 102 H MCH 33 H MCHC RDW 16.7 H Lymph % (Auto) Tate % (Auto) Lymph # (Auto) Tate # (Auto) Seg Neutrophils % Seg Neuts % (Manual) Lymphocytes % (Manual) Seg Neutrophils # Seg Neutrophils # Man Lymphocytes # (Manual) PT INR ABG pH ABG pO2 ABG HCO3 ABG O2 Saturation ABG Base Excess ABG Hemoglobin Oxyhemoglobin Sodium Potassium Chloride Carbon Dioxide BUN Creatinine 0.7 L Glucose 135 H POC Glucose 145 H Calcium 8.3 L Phosphorus AST ALT Ammonia Albumin Urine WBC (Auto) 03/04/22 03/04/22 03/05/22 11:34 16:29 00:28 WBC RBC Hgb Hct MCV MCH MCHC RDW Lymph % (Auto) Tate % (Auto) Lymph # (Auto) Tate # (Auto) Seg Neutrophils % Seg Neuts % (Manual) Lymphocytes % (Manual) Seg Neutrophils # Seg Neutrophils # Man Lymphocytes # (Manual) PT INR ABG pH ABG pO2 ABG HCO3 ABG O2 Saturation ABG Base Excess ABG Hemoglobin Oxyhemoglobin Sodium Potassium Chloride Carbon Dioxide BUN Creatinine Glucose POC Glucose 148 H 140 H 116 H Calcium Phosphorus AST ALT Ammonia Albumin Urine WBC (Auto) 03/05/22 03/05/22 03/05/22 06:29 11:30 17:38 WBC RBC Hgb Hct MCV MCH MCHC RDW Lymph % (Auto) Tate % (Auto) Lymph # (Auto) Tate # (Auto) Seg Neutrophils % Seg Neuts % (Manual) Lymphocytes % (Manual) Seg Neutrophils # Seg Neutrophils # Man Lymphocytes # (Manual) PT INR ABG pH ABG pO2 ABG HCO3 ABG O2 Saturation ABG Base Excess ABG Hemoglobin Oxyhemoglobin Sodium Potassium Chloride Carbon Dioxide BUN Creatinine Glucose POC Glucose 114 H 114 H 117 H Calcium Phosphorus AST ALT Ammonia Albumin Urine WBC (Auto) 03/06/22 03/06/22 03/06/22 04:17 04:17 06:06 WBC 13.4 H RBC 2.85 L Hgb 9.4 L Hct 29.0 L MCV 102 H MCH 33 H MCHC RDW 16.4 H Lymph % (Auto) Tate % (Auto) Lymph # (Auto) Tate # (Auto) Seg Neutrophils % Seg Neuts % (Manual) Lymphocytes % (Manual) Seg Neutrophils # Seg Neutrophils # Man Lymphocytes # (Manual) PT INR ABG pH ABG pO2 ABG HCO3 ABG O2 Saturation ABG Base Excess ABG Hemoglobin Oxyhemoglobin Sodium Potassium 3.5 L Chloride Carbon Dioxide 31 H BUN Creatinine 0.6 L Glucose 101 H POC Glucose 106 H Calcium 7.7 L Phosphorus 2.00 L AST ALT Ammonia Albumin Urine WBC (Auto) 03/06/22 03/06/22 03/07/22 18:04 23:50 05:14 WBC RBC Hgb Hct MCV MCH MCHC RDW Lymph % (Auto) Tate % (Auto) Lymph # (Auto) Tate # (Auto) Seg Neutrophils % Seg Neuts % (Manual) Lymphocytes % (Manual) Seg Neutrophils # Seg Neutrophils # Man Lymphocytes # (Manual) PT INR ABG pH ABG pO2 ABG HCO3 ABG O2 Saturation ABG Base Excess ABG Hemoglobin Oxyhemoglobin Sodium Potassium Chloride Carbon Dioxide BUN Creatinine Glucose POC Glucose 108 H 115 H 116 H Calcium Phosphorus AST ALT Ammonia Albumin Urine WBC (Auto) 03/07/22 03/07/22 03/08/22 11:42 18:13 04:34 WBC RBC 2.86 L Hgb 9.2 L Hct 29.3 L MCV 103 H MCH MCHC 31 L RDW 16.9 H Lymph % (Auto) Tate % (Auto) Lymph # (Auto) Tate # (Auto) Seg Neutrophils % Seg Neuts % (Manual) Lymphocytes % (Manual) Seg Neutrophils # Seg Neutrophils # Man Lymphocytes # (Manual) PT INR ABG pH ABG pO2 ABG HCO3 ABG O2 Saturation ABG Base Excess ABG Hemoglobin Oxyhemoglobin Sodium Potassium Chloride Carbon Dioxide BUN Creatinine Glucose POC Glucose 123 H 109 H Calcium Phosphorus AST ALT Ammonia Albumin Urine WBC (Auto) 03/08/22 03/08/22 03/08/22 04:34 11:29 16:34 WBC RBC Hgb Hct MCV MCH MCHC RDW Lymph % (Auto) Tate % (Auto) Lymph # (Auto) Tate # (Auto) Seg Neutrophils % Seg Neuts % (Manual) Lymphocytes % (Manual) Seg Neutrophils # Seg Neutrophils # Man Lymphocytes # (Manual) PT INR ABG pH ABG pO2 ABG HCO3 ABG O2 Saturation ABG Base Excess ABG Hemoglobin Oxyhemoglobin Sodium Potassium Chloride Carbon Dioxide 33 H BUN Creatinine 0.5 L Glucose 109 H POC Glucose 117 H 109 H Calcium 7.6 L Phosphorus AST ALT Ammonia Albumin Urine WBC (Auto) 03/08/22 03/09/22 03/10/22 23:56 11:15 03:57 WBC RBC 2.99 L Hgb 9.9 L Hct 30.3 L MCV 102 H MCH 33 H MCHC RDW 16.8 H Lymph % (Auto) 13.3 L Tate % (Auto) 12.5 H Lymph # (Auto) Tate # (Auto) 1.3 H Seg Neutrophils % 72.4 H Seg Neuts % (Manual) Lymphocytes % (Manual) Seg Neutrophils # Seg Neutrophils # Man Lymphocytes # (Manual) PT INR ABG pH ABG pO2 ABG HCO3 ABG O2 Saturation ABG Base Excess ABG Hemoglobin Oxyhemoglobin Sodium Potassium Chloride Carbon Dioxide BUN Creatinine Glucose POC Glucose 106 H 110 H Calcium Phosphorus AST ALT Ammonia Albumin Urine WBC (Auto) 03/10/22 03/10/22 03/10/22 03:57 04:50 16:04 WBC RBC Hgb Hct MCV MCH MCHC RDW Lymph % (Auto) Tate % (Auto) Lymph # (Auto) Tate # (Auto) Seg Neutrophils % Seg Neuts % (Manual) Lymphocytes % (Manual) Seg Neutrophils # Seg Neutrophils # Man Lymphocytes # (Manual) PT INR ABG pH 7.465 H ABG pO2 ABG HCO3 31.9 H ABG O2 Saturation ABG Base Excess 7.3 H ABG Hemoglobin 11.0 L Oxyhemoglobin Sodium Potassium 3.4 L Chloride Carbon Dioxide BUN Creatinine 0.6 L Glucose POC Glucose 115 H Calcium 8.1 L Phosphorus AST ALT Ammonia Albumin 1.9 L Urine WBC (Auto) 03/11/22 03/11/22 03/11/22 04:02 04:02 04:02 WBC 12.0 H RBC 2.81 L Hgb 9.2 L Hct 29.1 L MCV 103 H MCH 33 H MCHC RDW 17.5 H Lymph % (Auto) Tate % (Auto) Lymph # (Auto) Tate # (Auto) Seg Neutrophils % Seg Neuts % (Manual) Lymphocytes % (Manual) Seg Neutrophils # Seg Neutrophils # Man Lymphocytes # (Manual) PT 16.2 H INR 1.16 H ABG pH ABG pO2 ABG HCO3 ABG O2 Saturation ABG Base Excess ABG Hemoglobin Oxyhemoglobin Sodium Potassium Chloride Carbon Dioxide BUN Creatinine 0.5 L Glucose 104 H POC Glucose Calcium 7.9 L Phosphorus AST ALT Ammonia Albumin Urine WBC (Auto) 03/11/22 03/11/22 03/11/22 05:10 11:07 16:32 WBC RBC Hgb Hct MCV MCH MCHC RDW Lymph % (Auto) Tate % (Auto) Lymph # (Auto) Tate # (Auto) Seg Neutrophils % Seg Neuts % (Manual) Lymphocytes % (Manual) Seg Neutrophils # Seg Neutrophils # Man Lymphocytes # (Manual) PT INR ABG pH 7.476 H ABG pO2 ABG HCO3 29.7 H ABG O2 Saturation ABG Base Excess 5.7 H ABG Hemoglobin 9.1 L Oxyhemoglobin Sodium Potassium Chloride Carbon Dioxide BUN Creatinine Glucose POC Glucose 108 H 121 H Calcium Phosphorus AST ALT Ammonia Albumin Urine WBC (Auto) 03/12/22 03/13/22 03/13/22 05:51 06:08 12:02 WBC RBC 2.73 L Hgb 9.0 L Hct 27.5 L MCV 101 H MCH 33 H MCHC RDW 17.2 H Lymph % (Auto) Tate % (Auto) Lymph # (Auto) Tate # (Auto) Seg Neutrophils % Seg Neuts % (Manual) Lymphocytes % (Manual) Seg Neutrophils # Seg Neutrophils # Man Lymphocytes # (Manual) PT INR ABG pH ABG pO2 ABG HCO3 ABG O2 Saturation ABG Base Excess ABG Hemoglobin Oxyhemoglobin Sodium Potassium Chloride Carbon Dioxide BUN Creatinine Glucose POC Glucose 116 H 111 H Calcium Phosphorus AST ALT Ammonia Albumin Urine WBC (Auto) 03/13/22 03/13/22 03/14/22 12:48 18:17 03:58 WBC RBC 2.97 L Hgb 9.7 L Hct 30.0 L MCV 101 H MCH 33 H MCHC RDW 16.7 H Lymph % (Auto) Tate % (Auto) Lymph # (Auto) Tate # (Auto) Seg Neutrophils % Seg Neuts % (Manual) Lymphocytes % (Manual) Seg Neutrophils # Seg Neutrophils # Man Lymphocytes # (Manual) PT INR ABG pH ABG pO2 ABG HCO3 ABG O2 Saturation ABG Base Excess ABG Hemoglobin Oxyhemoglobin Sodium Potassium Chloride Carbon Dioxide BUN Creatinine Glucose POC Glucose 125 H 114 H Calcium Phosphorus AST ALT Ammonia Albumin Urine WBC (Auto) 03/14/22 03/14/22 03/14/22 03:58 13:01 16:41 WBC RBC Hgb Hct MCV MCH MCHC RDW Lymph % (Auto) Tate % (Auto) Lymph # (Auto) Tate # (Auto) Seg Neutrophils % Seg Neuts % (Manual) Lymphocytes % (Manual) Seg Neutrophils # Seg Neutrophils # Man Lymphocytes # (Manual) PT INR ABG pH ABG pO2 ABG HCO3 ABG O2 Saturation ABG Base Excess ABG Hemoglobin Oxyhemoglobin Sodium Potassium Chloride Carbon Dioxide BUN Creatinine 0.6 L Glucose POC Glucose 118 H 109 H Calcium 8.2 L Phosphorus AST ALT Ammonia Albumin Urine WBC (Auto) 03/16/22 03/16/22 03/17/22 05:28 05:28 23:19 WBC RBC 2.81 L Hgb 9.1 L Hct 27.8 L MCV 99 H MCH MCHC RDW 17.0 H Lymph % (Auto) Tate % (Auto) Lymph # (Auto) Tate # (Auto) Seg Neutrophils % Seg Neuts % (Manual) Lymphocytes % (Manual) Seg Neutrophils # Seg Neutrophils # Man Lymphocytes # (Manual) PT INR ABG pH ABG pO2 ABG HCO3 ABG O2 Saturation ABG Base Excess ABG Hemoglobin Oxyhemoglobin Sodium Potassium Chloride Carbon Dioxide BUN Creatinine 0.5 L Glucose POC Glucose 113 H Calcium 8.2 L Phosphorus AST ALT Ammonia Albumin Urine WBC (Auto) 03/20/22 03/20/22 03/20/22 04:09 04:09 17:22 WBC RBC 2.90 L Hgb 9.6 L Hct 28.9 L MCV 100 H MCH 33 H MCHC RDW 17.4 H Lymph % (Auto) Tate % (Auto) Lymph # (Auto) Tate # (Auto) Seg Neutrophils % Seg Neuts % (Manual) Lymphocytes % (Manual) Seg Neutrophils # Seg Neutrophils # Man Lymphocytes # (Manual) PT INR ABG pH ABG pO2 ABG HCO3 ABG O2 Saturation ABG Base Excess ABG Hemoglobin Oxyhemoglobin Sodium Potassium Chloride Carbon Dioxide BUN Creatinine 0.6 L Glucose POC Glucose 110 H Calcium 8.2 L Phosphorus AST ALT Ammonia Albumin Urine WBC (Auto) 03/21/22 03/21/22 03/22/22 18:24 23:09 12:18 WBC RBC Hgb Hct MCV MCH MCHC RDW Lymph % (Auto) Tate % (Auto) Lymph # (Auto) Tate # (Auto) Seg Neutrophils % Seg Neuts % (Manual) Lymphocytes % (Manual) Seg Neutrophils # Seg Neutrophils # Man Lymphocytes # (Manual) PT INR ABG pH ABG pO2 ABG HCO3 ABG O2 Saturation ABG Base Excess ABG Hemoglobin Oxyhemoglobin Sodium Potassium Chloride Carbon Dioxide BUN Creatinine Glucose POC Glucose 110 H 107 H 106 H Calcium Phosphorus AST ALT Ammonia Albumin Urine WBC (Auto) 03/22/22 03/23/22 03/23/22 14:25 00:21 11:31 WBC RBC Hgb Hct MCV MCH MCHC RDW Lymph % (Auto) Tate % (Auto) Lymph # (Auto) Tate # (Auto) Seg Neutrophils % Seg Neuts % (Manual) Lymphocytes % (Manual) Seg Neutrophils # Seg Neutrophils # Man Lymphocytes # (Manual) PT INR ABG pH ABG pO2 150.5 H ABG HCO3 32.4 H ABG O2 Saturation ABG Base Excess 6.2 H ABG Hemoglobin 11.4 L Oxyhemoglobin Sodium Potassium Chloride Carbon Dioxide BUN Creatinine Glucose POC Glucose 107 H 110 H Calcium Phosphorus AST ALT Ammonia Albumin Urine WBC (Auto) 03/24/22 03/24/22 03/24/22 03:47 03:47 05:56 WBC RBC 3.18 L Hgb 10.1 L Hct 31.1 L MCV 98 H MCH MCHC RDW 17.4 H Lymph % (Auto) Tate % (Auto) Lymph # (Auto) Tate # (Auto) Seg Neutrophils % Seg Neuts % (Manual) Lymphocytes % (Manual) Seg Neutrophils # Seg Neutrophils # Man Lymphocytes # (Manual) PT INR ABG pH ABG pO2 ABG HCO3 ABG O2 Saturation ABG Base Excess ABG Hemoglobin Oxyhemoglobin Sodium Potassium Chloride Carbon Dioxide BUN Creatinine 0.5 L Glucose POC Glucose 107 H Calcium Phosphorus AST ALT Ammonia Albumin Urine WBC (Auto) 03/24/22 03/25/22 03/25/22 11:15 00:14 11:24 WBC RBC Hgb Hct MCV MCH MCHC RDW Lymph % (Auto) Tate % (Auto) Lymph # (Auto) Tate # (Auto) Seg Neutrophils % Seg Neuts % (Manual) Lymphocytes % (Manual) Seg Neutrophils # Seg Neutrophils # Man Lymphocytes # (Manual) PT INR ABG pH ABG pO2 ABG HCO3 ABG O2 Saturation ABG Base Excess ABG Hemoglobin Oxyhemoglobin Sodium Potassium Chloride Carbon Dioxide BUN Creatinine Glucose POC Glucose 126 H 109 H 110 H Calcium Phosphorus AST ALT Ammonia Albumin Urine WBC (Auto) 03/25/22 03/26/22 03/26/22 16:27 05:18 11:15 WBC RBC Hgb Hct MCV MCH MCHC RDW Lymph % (Auto) Tate % (Auto) Lymph # (Auto) Tate # (Auto) Seg Neutrophils % Seg Neuts % (Manual) Lymphocytes % (Manual) Seg Neutrophils # Seg Neutrophils # Man Lymphocytes # (Manual) PT INR ABG pH ABG pO2 ABG HCO3 ABG O2 Saturation ABG Base Excess ABG Hemoglobin Oxyhemoglobin Sodium Potassium Chloride Carbon Dioxide BUN Creatinine Glucose POC Glucose 123 H 114 H 135 H Calcium Phosphorus AST ALT Ammonia Albumin Urine WBC (Auto) 03/26/22 03/27/22 03/27/22 18:08 03:52 03:52 WBC 17.1 H RBC 2.94 L Hgb 9.2 L Hct 29.3 L MCV 100 H MCH MCHC 31 L RDW 17.5 H Lymph % (Auto) Tate % (Auto) Lymph # (Auto) Tate # (Auto) Seg Neutrophils % Seg Neuts % (Manual) Lymphocytes % (Manual) Seg Neutrophils # Seg Neutrophils # Man Lymphocytes # (Manual) PT INR ABG pH ABG pO2 ABG HCO3 ABG O2 Saturation ABG Base Excess ABG Hemoglobin Oxyhemoglobin Sodium 136 L Potassium Chloride Carbon Dioxide 32 H BUN 23 H Creatinine 0.6 L Glucose POC Glucose 130 H Calcium 8.2 L Phosphorus AST ALT Ammonia Albumin Urine WBC (Auto) 03/27/22 03/27/22 03/27/22 08:36 12:55 18:27 WBC RBC Hgb Hct MCV MCH MCHC RDW Lymph % (Auto) Tate % (Auto) Lymph # (Auto) Tate # (Auto) Seg Neutrophils % Seg Neuts % (Manual) Lymphocytes % (Manual) Seg Neutrophils # Seg Neutrophils # Man Lymphocytes # (Manual) PT INR ABG pH ABG pO2 ABG HCO3 ABG O2 Saturation ABG Base Excess ABG Hemoglobin Oxyhemoglobin Sodium Potassium Chloride Carbon Dioxide BUN Creatinine Glucose POC Glucose 137 H 114 H Calcium Phosphorus AST ALT Ammonia Albumin Urine WBC (Auto) > 182.0 H 03/28/22 03/28/22 03/28/22 01:00 04:06 04:52 WBC 14.2 H RBC 2.76 L Hgb 8.6 L Hct 26.8 L MCV 97 H MCH MCHC RDW 17.4 H Lymph % (Auto) 7.5 L Tate % (Auto) 10.5 H Lymph # (Auto) 1.1 L Tate # (Auto) 1.5 H Seg Neutrophils % 80.7 H Seg Neuts % (Manual) Lymphocytes % (Manual) Seg Neutrophils # 11.4 H Seg Neutrophils # Man Lymphocytes # (Manual) PT INR ABG pH ABG pO2 ABG HCO3 ABG O2 Saturation ABG Base Excess ABG Hemoglobin Oxyhemoglobin Sodium Potassium Chloride Carbon Dioxide BUN Creatinine Glucose POC Glucose 111 H 111 H Calcium Phosphorus AST ALT Ammonia Albumin Urine WBC (Auto) 03/28/22 03/28/22 03/29/22 12:09 23:23 04:22 WBC RBC 2.85 L Hgb 8.9 L Hct 27.8 L MCV 98 H MCH MCHC RDW 17.8 H Lymph % (Auto) Tate % (Auto) Lymph # (Auto) Tate # (Auto) Seg Neutrophils % Seg Neuts % (Manual) Lymphocytes % (Manual) Seg Neutrophils # Seg Neutrophils # Man Lymphocytes # (Manual) PT INR ABG pH ABG pO2 ABG HCO3 ABG O2 Saturation ABG Base Excess ABG Hemoglobin Oxyhemoglobin Sodium Potassium Chloride Carbon Dioxide BUN Creatinine Glucose POC Glucose 114 H 112 H Calcium Phosphorus AST ALT Ammonia Albumin Urine WBC (Auto) 03/29/22 03/29/22 03/29/22 05:56 12:22 23:39 WBC RBC Hgb Hct MCV MCH MCHC RDW Lymph % (Auto) Tate % (Auto) Lymph # (Auto) Tate # (Auto) Seg Neutrophils % Seg Neuts % (Manual) Lymphocytes % (Manual) Seg Neutrophils # Seg Neutrophils # Man Lymphocytes # (Manual) PT INR ABG pH ABG pO2 ABG HCO3 ABG O2 Saturation ABG Base Excess ABG Hemoglobin Oxyhemoglobin Sodium Potassium Chloride Carbon Dioxide BUN Creatinine Glucose POC Glucose 116 H 130 H 121 H Calcium Phosphorus AST ALT Ammonia Albumin Urine WBC (Auto) 03/30/22 03/30/22 03/30/22 11:52 16:04 23:05 WBC RBC Hgb Hct MCV MCH MCHC RDW Lymph % (Auto) Tate % (Auto) Lymph # (Auto) Tate # (Auto) Seg Neutrophils % Seg Neuts % (Manual) Lymphocytes % (Manual) Seg Neutrophils # Seg Neutrophils # Man Lymphocytes # (Manual) PT INR ABG pH ABG pO2 ABG HCO3 ABG O2 Saturation ABG Base Excess ABG Hemoglobin Oxyhemoglobin Sodium Potassium Chloride Carbon Dioxide BUN Creatinine Glucose POC Glucose 127 H 122 H 113 H Calcium Phosphorus AST ALT Ammonia Albumin Urine WBC (Auto) 03/31/22 03/31/22 03:56 03:56 WBC RBC 3.08 L Hgb 9.5 L Hct 30.1 L MCV 98 H MCH MCHC RDW 17.7 H Lymph % (Auto) Tate % (Auto) Lymph # (Auto) Tate # (Auto) Seg Neutrophils % Seg Neuts % (Manual) Lymphocytes % (Manual) Seg Neutrophils # Seg Neutrophils # Man Lymphocytes # (Manual) PT INR ABG pH ABG pO2 ABG HCO3 ABG O2 Saturation ABG Base Excess ABG Hemoglobin Oxyhemoglobin Sodium 135 L Potassium Chloride 97.4 L Carbon Dioxide 31 H BUN Creatinine 0.5 L Glucose 102 H POC Glucose Calcium Phosphorus AST ALT Ammonia Albumin Urine WBC (Auto)
[2022-03-31] MEDS: PRAVASTATIN 40 MG TAB FEEDTUBE SCH (21:01)
[2022-04-01] MEDS: ALBUTEROL 2.5 MG/3 ML NEBU IH SCH ×4 (02:22→19:05)
[2022-04-01] MEDS: HEPARIN 5,000 UNIT/1 ML VIAL SUB-Q SCH ×3 (05:22→21:06)
[2022-04-01] MEDS: LEVOTHYROXINE 25 MCG TAB FEEDTUBE SCH (05:22)
[2022-04-01] MEDS: levETIRAcetam 500 MG/5 ML ORAL LIQD FEEDTUBE SCH ×2 (09:20→21:06)
[2022-04-01] MEDS: MIDODRINE 2.5 MG TAB FEEDTUBE SCH ×3 (09:20→17:44)
[2022-04-01] MEDS: FAMOTIDINE 20 MG TAB FEEDTUBE SCH ×2 (09:20→21:06)
--- NOTE | 2022-04-01 10:25 | Progress Note ---
<KEATON GOLD - Last Filed: 04/01/22 19:34> Assessment and Plan Assessment and plan: This is a 51-year-old male with HTN, seizure disorder, Down syndrome, HLD, partial blindness admitted with aspiration pneumonia, probable bronchogenic carcinoma, acute hypoxic respiratory failure and acute encephalopathy Hospital course to date: 02/19/2022. Consult pulmonary for further evaluation and possible bronchoscopy. I suspect patient has component of aspiration pneumonia as well. We will obtain a speech therapy evaluation for swallowing and start empiric antibiotics. Continue O2 supplementation to maintain sats greater than 92%. 02/20/2022. Pulmonary feels that the abnormality seen on CT scan is highly unlikely for a mass given negative chest x-ray 1 month ago and no risk factors. Etiology is likely secondary to aspiration from possibly a foreign body most likely food with atelectasis of the right lower lobe. Bronchoscopy is needed in the case to evaluate to see if lung mass is there vs foreign body, but at this time not able to do because no identifiable person that is able to give consent. Continue aspiration precautions and continue speech therapy evaluation for swallowing. Keep n.p.o. for now 02/21/2022. Patient remains NPO. Consider DHT placement. Follow-up with speech therapy evaluation. Pulmonology to consider bronchoscopy if able to obtain consent. Continue IV antibiotics for aspiration pneumonia 02/22/2022. Patient remains NPO. Consider DHT placement. Follow-up with speech therapy evaluation. Pulmonology to consider bronchoscopy if able to obtain consent. Continue IV antibiotics for aspiration pneumonia 02/23/2022. DHT placed yesterday. TF initiated for nutritional support. Patient currently with strict NPO. Aspiration precautions. Pulmonology to consider bronchoscopy if able to obtain consent. Continue IV antibiotics for aspiration pneumonia 02/24: Patient was transferred to the ICU for further monitoring. This morning patient remained on high flow nasal cannula on 40 L/100% and despite repeated nasotracheal suctioning patient SPO2 remained in the 80s. Patient was placed on nonrebreather and SPO2 increased to upper 80s. Patient was subsequently intubated by anesthesia. Started on sedation. 02/25: Patient remains sedated on fentanyl, potassium and magnesium repleted. IV fluids and amlodipine discontinued. Possible bronchoscopy tomorrow. 02/26: Patient had a bronchoscopy today which showed mucus and no endobronchial lesions or masses. FiO2 was increased to 100 during and postprocedure weaning as tolerated. Repeat CXR is much improved after bronc. Given 1 L LR bolus due to hypotension. No acute events reported overnight. 02/27: Decreased PEEP, will repeat CT of chest. no acute changes overnight. 02/28: Patient was extubated today however had to be be intubated shortly after. Patient ETT looked mispositioned on x-ray and Dr. Alonzo did do a bedside bronc. Patient was briefly hypotensive and on Levophed postintubation however Levophed was quickly titrated off and patient did not require central line. No acute events reported overnight. Will obtain CT neck d/t difficulty intubating. Ethi committee consulted. 03/04: Overnight patient was hypotensive and started on IVF. Patient started on steroids as no air leak noted and hypotension and given 2 L LR 03/05: Overnight patient received bolus per RN report, no orders seen. Continue supportive care 03/03: SB on the monitor, HR as low as 37, VSS. Will continue to monitor for now. Awaiting on desicion from [facility] for possible trach and PEG. Continue daily air leak per [facility] 03/04: MAIDA overnight. Remains stable on the vent. Awaiting on desicion from [facility] for possible trach and PEG. Continue current supportive measures 03/05: MAIDA overnight. Awaiting on desicion from [facility] for possible trach and PEG. Midodrine held yesterday, HR improved. Continue current supportive measures. Daily PSV trial as tolerated per [facility] 03/06: Remains stable on the vent. Continue current supportive measures, daily PSV trial per [facility]. Awaiting on desicion for possible trach and PEG. 03/07: MAIDA overnight, remains stable. Continue daily PSV trial as tolerated. Awaiting on desicion for possible trach and PEG. 03/08: Patient failed PSV trial this am due to tachycardia and increase RR. Continue supportive measures and daily PSV trial as tolerated. Possible discussion with [facility] and [facility] on Thursday in regards to medical necessity, may need to consider two physician consent if no one is able to claim responsibility for this patient. 03/09: MAIDA overnight. Continue current supportive measures and daily PSV trail as tolerated. Awaiting on desicion for possible trach and PEG, discussion with Ethics possibly tomorrow per [facility]. 03/10: no acute events overnight, PSV today. replete potassium. 03/11: No acute events reported overnight, patient failed PSV yesterday and will repeat today. Hospital to start guardianship process. 03/12: No acute events overnight. PSV today 03/13: Patient given 500ml normal saline and started on midodrine for h ypotension. No acute events reported overnight. Failed pressure support again this morning. 03/14: No acute events reported overnight, patient blood pressure seems better therefore midodrine discontinued. RT placed on CPAP need lasted for couple hours. Will remove summers 03/15: Midodrine was restarted yesterday evening for hypotension, Summers catheter not removed due to sacral ulcer and history of retention. Unable to crush Flomax and patient will not tolerate doxazosin given hypotension. Given LR bolus this morning. If blood pressure continues to be borderline after bolus, we will adjust management as needed. CPAP as tolerated 03/16: No acute events reported overnight, patient placed on CPAP trial this morning which he failed. 03/17: RT attempted PSV which he failed again today. No acute events reported overnight. 03/18: Awaiting ethic committee's decision on Trach/PEG. Patient tolerated PSV trial for over 3 hrs today, continue daily PSV trial as tolerated. 03/19: MAIDA overnight. Continue current supportive measures. Daily PSV trial as tolerated. Awaiting on desicion for possible trach and PEG. 03/20: MAIDA overnight. Daily PSV trial as tolerated. Awaiting decision on guardian ship for trach and PEG. 03/21: Remains stable, condition unchanged. Continue supportive measures and daily PSV trial as tolerated. 03/22: MAIDA overnight. Continue current supportive measures. Daily PSV trial as tolerated 03/23: MAIDA overnight, continue supportive measures and daily PSV trial as tolerated. 03/24: Condition unchanged. Still waiting on Ethics' decision for possible trach/Peg. Continue supportive measures and daily PSV trial as tolerated. 03/25: PSV attempt today, does open eyes to stimuli, no acute events overnight. 03/26: Yesterday evening Summers catheter was removed as he was due to be changed, condom cath placed. Overnight patient had good urine output and per RN repeated bladder scans showed less than 200 mL of urine. We will continue to monitor urine output. RT to attempt PSV 03/27: Patient has leukocytosis today and UA has pyuria with moderate LE therefore he will be started on antibiotics. 03/28: Leukocytosis improving. No acute events reported overnight. 03/29: No acute events overnight. Continue supportive care. 03/30: no acute events overnight, PSV again. 03/31: Condition unchanged, remains on low vent setting. Possible Ethics meeting today and tomorrow for possible guardianship. Will consult General Surgery for possible trach and Peg once guardianship decision has been made. Continue supportive measures and daily PSV trial as tolerated 04/01: Remains stable on the vent. Court hearing today, awaiting decision on appointed guardian by the [facility]. Continue current supportive measures and daily PSV trial as tolerated Neuro: Acute encephalopathy, h/o seizure disorder, Down syndrome, partial blindness -Intubated and off sedation -Reorientation as needed -Maintain sleep-wake cycle -aspiration/seizure precautions -As needed analgesia -CT head showed no acute abnormality -Continue Keppra Cardiac: Hypotension, h/o HTN, HLD -Cardiology consulted, appreciate recommendations -Blood pressure monitoring per protocol -d/c amlodipine -On PO Midodrine for hypotension Respiratory: Acute hypoxic respiratory failure, r/o bronchogenic carcinoma -CCM consulted, appreciate recommendations -Intubated on 02/24 with a 8.0 at 23 at the lips but extubated 02/28 -reintubated 02/28 with 8.0 OETT -Vent settings: AC rate 14, TV 360, PEEP 6, FO2 30% -See RT notes for titration -VAP bundle -SPO2 monitoring -02/18 CTA chest showed no evidence of pulmonary embolism, suspected bronchogenic carcinoma with associated obstruction of the right lower lobe proximal bronchus segment, 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 adenopathy and suspected to left lower lobe metastatic nodule -02/26 Bronch->mucous, no lesion noted -02/27 CT chest showed right mainstem bronchus patent with small amount of i nterval bronchial fluid which may be mucus (this may account for the appearance of the prior CTA chest fluid-filled airway rather than entering bronchial lesion), previously seen complete left lower lobe since related to bronchial occlusion has significantly improved, there is persistent compressive atelectasis in the right lower lung secondary to the pleural effusion, bilateral pleural effusions, right lung pneumonia -CT neck showed no acute changes - IV Steroids stopped GI: Moderate protein calorie malnutrition -PPI -NTR consulted for tube feedings -BR: Senokot S : Hypernatremia (resolved) -FWF 200 ml q4 hr -Monitor intake and output -Renally dose medications -Avoid nephrotoxic medications -Trend BMP ID: UTI, Aspiration PNA (resolved), sacral wound (POA) -UA with pyuria, mod LE with leukocytosis -WOCN consulted -Dressing changes per nursing -S/p Rocephin for 5 days (02/19-02/24) -Current abx therapy: rocephin for 3 days -Monitor WBC and temperature curve Endo: NAD -Avoid hypoglycemia -Accu-Cheks every 6 -Avoid hypoglycemia Heme: NAD -Trend CBC -Transfuse hemoglobin less than 7 -SCDs to BLE while in bed The high probability of a clinically significant, sudden or life threatening deterioration of the [resp] system(s) required my full and direct attention, intervention and personal management. The aggregate critical care time was [60] minutes. This time is in addition to time spent performing reported procedures but includes the following: [x] Data Review and interpretation [x] Patient assessment and monitoring of vital signs [x] Documentation [x] Medication orders and management Disposition Plan: ICU Total Time Spent with Patient (Minutes): 60 History Interval history: Patient seen and examined at the bedside. Remains stable on low vent setting. SR on the monitor this am, VSS. MAIDA overnight Hospitalist Physical - Physical exam Narrative exam: General appearance: Present: no acute distress, well-nourished, obese - EENT Eyes: Present: PERRL - Neck Neck: Present: normal ROM - Respiratory Respiratory effort: normal Respiratory: bilateral: rhonchi - Cardiovascular Rhythm: regular Heart Sounds: Present: S1 & S2 - Extremities Extremities: no ischemia, pulses intact, pulses symmetrical Extremity abnormal: edema - Peripheral Assessment Generalized Edema Type: Non-pitting Edema Degree: 1+ Capillary Refill: < 3 seconds Skin Temperature: Warm Peripheral Pulses: within normal limits - Abdominal General gastrointestinal: soft, non-distended, normal bowel sounds - Integumentary Integumentary: Present: warm, dry - Psychiatric Psychiatric: other (Intubated, unresponsive. Not on any sedations) - Neurologic Neurologic: moves all extremities, other (Intubated, unresponsive. Not on any sedations) - Allied Health Allied health notes reviewed: nursing, case management - Constitutional Vitals: Temp Pulse Resp BP Pulse Ox 97.9 F 71 14 121/68 97 04/01/22 07:09 04/01/22 07:51 04/01/22 07:51 04/01/22 07:43 04/01/22 07:43 HEART Score - HEART Score Troponin: Troponin T < 0.010 ng/mL (0.00-0.029) 02/18/22 21:02 Results - Labs CBC & Chem 7: 03/31/22 03:56 03/31/22 03:56 Labs: Laboratory Last Values WBC 9.7 K/mm3 (4.5-11.0) 03/31/22 03:56 RBC 3.08 M/mm3 (3.65-5.03) L 03/31/22 03:56 Hgb 9.5 gm/dl (11.8-15.2) L 03/31/22 03:56 Hct 30.1 % (35.5-45.6) L 03/31/22 03:56 MCV 98 fl (84-94) H 03/31/22 03:56 MCH 31 pg (28-32) 03/31/22 03:56 MCHC 32 % (32-34) 03/31/22 03:56 RDW 17.7 % (13.2-15.2) H 03/31/22 03:56 Plt Count 331 K/mm3 (140-440) 03/31/22 03:56 Lymph % (Auto) 7.5 % (13.4-35.0) L 03/28/22 04:06 Ballard % (Auto) 10.5 % (0.0-7.3) H 03/28/22 04:06 Eos % (Auto) 0.9 % (0.0-4.3) 03/28/22 04:06 Baso % (Auto) 0.4 % (0.0-1.8) 03/28/22 04:06 Lymph # (Auto) 1.1 K/mm3 (1.2-5.4) L 03/28/22 04:06 [place] # (Auto) 1.5 K/mm3 (0.0-0.8) H 03/28/22 04:06 Eos # (Auto) 0.1 K/mm3 (0.0-0.4) 03/28/22 04:06 Baso # (Auto) 0.1 K/mm3 (0.0-0.1) 03/28/22 04:06 Add Manual Diff Complete 03/03/22 03:54 Total Counted 100 03/03/22 03:54 Seg Neutrophils % 80.7 % (40.0-70.0) H 03/28/22 04:06 Seg Neuts % (Manual) 95.0 % (40.0-70.0) H 03/03/22 03:54 Band Neutrophils % 0 % 03/03/22 03:54 Lymphocytes % (Manual) 3.0 % (13.4-35.0) L 03/03/22 03:54 Reactive Lymphs % (Man) 0 % 03/03/22 03:54 Monocytes % (Manual) 2.0 % (0.0-7.3) 03/03/22 03:54 Eosinophils % (Manual) 0 % (0.0-4.3) 03/03/22 03:54 Basophils % (Manual) 0 % (0.0-1.8) 03/03/22 03:54 Metamyelocytes % 0 % 03/03/22 03:54 Myelocytes % 0 % 03/03/22 03:54 Promyelocytes % 0 % 03/03/22 03:54 Blast Cells % 0 % 03/03/22 03:54 Nucleated RBC % Not Reportable 03/03/22 03:54 Seg Neutrophils # 11.4 K/mm3 (1.8-7.7) H 03/28/22 04:06 Seg Neutrophils # Man 18.5 K/mm3 (1.8-7.7) H 03/03/22 03:54 Band Neutrophils # 0.0 K/mm3 03/03/22 03:54 Lymphocytes # (Manual) 0.6 K/mm3 (1.2-5.4) L 03/03/22 03:54 Abs React Lymphs (Man) 0.0 K/mm3 03/03/22 03:54 Monocytes # (Manual) 0.4 K/mm3 (0.0-0.8) 03/03/22 03:54 Eosinophils # (Manual) 0.0 K/mm3 (0.0-0.4) 03/03/22 03:54 Basophils # (Manual) 0.0 K/mm3 (0.0-0.1) 03/03/22 03:54 Metamyelocytes # 0.0 K/mm3 03/03/22 03:54 Myelocytes # 0.0 K/mm3 03/03/22 03:54 Promyelocytes # 0.0 K/mm3 03/03/22 03:54 Blast Cells # 0.0 K/mm3 03/03/22 03:54 WBC Morphology Not Reportable 03/03/22 03:54 Hypersegmented Neuts Not Reportable 03/03/22 03:54 Hyposegmented Neuts Not Reportable 03/03/22 03:54 Hypogranular Neuts Not Reportable 03/03/22 03:54 Smudge Cells Not Reportable 03/03/22 03:54 Toxic Granulation Not Reportable 03/03/22 03:54 Toxic Vacuolation Not Reportable 03/03/22 03:54 Dohle Bodies Not Reportable 03/03/22 03:54 Pelger-Huet Anomaly Not Reportable 03/03/22 03:54 Lakshmi Rods Not Reportable 03/03/22 03:54 Platelet Estimate Consistent w auto 03/03/22 03:54 Clumped Platelets Not Reportable 03/03/22 03:54 Plt Clumps, EDTA Not Reportable 03/03/22 03:54 Large Platelets Not Reportable 03/03/22 03:54 Giant Platelets Not Reportable 03/03/22 03:54 Platelet Satelliting Not Reportable 03/03/22 03:54 Plt Morphology Comment Not Reportable 03/03/22 03:54 RBC Morphology Not Reportable 03/03/22 03:54 Dimorphic RBCs Not Reportable 03/03/22 03:54 Polychromasia Not Reportable 03/03/22 03:54 Hypochromasia Not Reportable 03/03/22 03:54 Poikilocytosis Not Reportable 03/03/22 03:54 Anisocytosis 1+ 03/03/22 03:54 Microcytosis Not Reportable 03/03/22 03:54 Macrocytosis Not Reportable 03/03/22 03:54 Spherocytes Not Reportable 03/03/22 03:54 Pappenheimer Bodies Not Reportable 03/03/22 03:54 Sickle Cells Not Reportable 03/03/22 03:54 Target Cells Not Reportable 03/03/22 03:54 Tear Drop Cells Not Reportable 03/03/22 03:54 Ovalocytes Not Reportable 03/03/22 03:54 Helmet Cells Not Reportable 03/03/22 03:54 Orellana-Almena Bodies Not Reportable 03/03/22 03:54 Rainelle Rings Not Reportable 03/03/22 03:54 Shelby Cells Not Reportable 03/03/22 03:54 Bite Cells Not Reportable 03/03/22 03:54 Crenated Cell Not Reportable 03/03/22 03:54 Elliptocytes Not Reportable 03/03/22 03:54 Acanthocytes (Spur) Not Reportable 03/03/22 03:54 Rouleaux Not Reportable 03/03/22 03:54 Hemoglobin C Crystals Not Reportable 03/03/22 03:54 Schistocytes Not Reportable 03/03/22 03:54 Malaria parasites Not Reportable 03/03/22 03:54 Cash Bodies Not Reportable 03/03/22 03:54 Hem Pathologist Commnt No 03/03/22 03:54 PT 16.2 Sec. (12.2-14.9) H 03/11/22 04:02 INR 1.16 (0.87-1.13) H 03/11/22 04:02 ABG pH 7.392 pH Units (7.350-7.450) 03/22/22 14:25 ABG pCO2 54.4 mm Hg 03/22/22 14:25 ABG pO2 150.5 mm Hg (80.0-90.0) H 03/22/22 14:25 ABG HCO3 32.4 mmol/L (20.0-26.0) H 03/22/22 14:25 ABG O2 Saturation 98.8 % (95.0-99.0) 03/22/22 14:25 ABG O2 Content 15.8 (0.0-44) 03/22/22 14:25 ABG Base Excess 6.2 mmol/L (-2.0-3.0) H 03/22/22 14:25 ABG Hemoglobin 11.4 gm/dl (14.0-18.0) L 03/22/22 14:25 ABG Carboxyhemoglobin 1.6 % (0.0-5.0) 03/22/22 14:25 ABG Methemoglobin 0.6 % (0.0-1.5) 03/22/22 14:25 Oxyhemoglobin 96.6 % (95.0-99.0) 03/22/22 14:25 FiO2 30 % 03/22/22 14:25 Sodium 135 mmol/L (137-145) L 03/31/22 03:56 Potassium 4.5 mmol/L (3.6-5.0) 03/31/22 03:56 Chloride 97.4 mmol/L (98-107) L 03/31/22 03:56 Carbon Dioxide 31 mmol/L (22-30) H 03/31/22 03:56 Anion Gap 11 mmol/L 03/31/22 03:56 BUN 18 mg/dL (9-20) 03/31/22 03:56 Creatinine 0.5 mg/dL (0.8-1.3) L 03/31/22 03:56 Estimated GFR > 60 ml/min 03/31/22 03:56 BUN/Creatinine Ratio 36 % 03/31/22 03:56 Glucose 102 mg/dL (75-100) H 03/31/22 03:56 POC Glucose 118 mg/dL (70-105) H 04/01/22 00:09 Lactic Acid 1.20 mmol/L (0.7-2.0) 02/18/22 21:02 Calcium 8.8 mg/dL (8.4-10.2) 03/31/22 03:56 Phosphorus 3.50 mg/dL (2.5-4.5) 03/20/22 04:09 Magnesium 2.00 mg/dL (1.7-2.3) 03/20/22 04:09 Total Bilirubin 0.30 mg/dL (0.1-1.2) 03/10/22 03:57 AST 17 units/L (5-40) 03/10/22 03:57 ALT 18 units/L (7-56) 03/10/22 03:57 Alkaline Phosphatase 89 units/L (35-129) 03/10/22 03:57 Ammonia 14.0 umol/L (25-60) L 02/18/22 23:22 Troponin T < 0.010 ng/mL (0.00-0.029) 02/18/22 21:02 Total Protein 6.6 g/dL (6.3-8.2) 03/10/22 03:57 Albumin 1.9 g/dL (3.9-5) L 03/10/22 03:57 Albumin/Globulin Ratio 0.4 % 03/10/22 03:57 Urine Color Yellow (Yellow) 03/27/22 08:36 Urine Turbidity Cloudy (Clear) 03/27/22 08:36 Urine pH 7.0 (5.0-7.0) 02/18/22 Unknown Ur Specific [place] 1.015 (1.003-1.030) 02/18/22 Unknown Specific [place] (Man) 1.020 (1.003-1.030) 03/27/22 08:36 Urine Protein <15 mg/dl mg/dL (Negative) 02/18/22 Unknown Ur Protein (Man) 1+ mg/dL (Negative) 03/27/22 08:36 Urine Glucose (UA) Negative mg/dL (Negative) 02/18/22 Unknown Urine Ketones Negative mg/dL (Negative) 02/18/22 Unknown Ur Ketones (Man) Negative (Negative) 03/27/22 08:36 Urine Blood Trace (Negative) 02/18/22 Unknown Urine Nitrite Negative (Negative) 02/18/22 Unknown Ur Nitrite (Man) Negative (Negative) 03/27/22 08:36 Ur Reducing Substances Not Reportable 03/27/22 08:36 Urine Bilirubin Negative (Negative) 02/18/22 Unknown Urine Bilirubin (Man) Negative (Negative) 03/27/22 08:36 Urine Ictotest Not Reportable 03/27/22 08:36 Urine Urobilinogen < 2.0 mg/dL (<2.0) 02/18/22 Unknown Ur Leukocyte Esterase Negative (Negative) 02/18/22 Unknown Leukocyte Esterase (Man) Moderate (Negative) 03/27/22 08:36 Urine WBC (Auto) > 182.0 /HPF (0.0-6.0) H 03/27/22 08:36 Urine RBC (Auto) 9.0 /HPF (0.0-6.0) 03/27/22 08:36 U Epithel Cells (Auto) < 1.0 /HPF (0-13.0) 03/27/22 08:36 Urine RBC (Manual) 1+ (Negative) 03/27/22 08:36 Urine Mucus Few /HPF 03/27/22 08:36 Urine Yeast (Budding) 2+ /HPF 03/27/22 08:36 Urine Opiates Screen Negative 02/18/22 Unknown Urine Methadone Screen Negative 02/18/22 Unknown Ur Barbiturates Screen Negative 02/18/22 Unknown Ur Phencyclidine Scrn Negative 02/18/22 Unknown Ur Amphetamines Screen Negative 02/18/22 Unknown U Benzodiazepines Scrn Negative 02/18/22 Unknown Urine Cocaine Screen Negative 02/18/22 Unknown U Marijuana (THC) Screen Negative 02/18/22 Unknown Drugs of Abuse Note Disclamer 02/18/22 Unknown Plasma/Serum Alcohol < 0.01 % (0-0.07) 02/18/22 21:02 Summers/IV: Voiding Method Indwelling Catheter Active Medications - Current Medications Current Medications: Generic Name Dose Route Start Last Admin Trade Name Freq PRN Reason Stop Dose Admin Acetaminophen 650 mg 03/03/22 09:00 Acetaminophen 325 Mg/10.15 Ml Oral Liqd Unit Dose FEEDTUBE Q4H PRN Pain, Mild (1-3); TEMP > 100.4 Albuterol 2.5 mg 03/12/22 20:00 04/01/22 07:50 Albuterol 2.5 Mg/3 Ml Nebu IH 2.5 mg Q6HRT LAZARUS Administration Famotidine 20 mg 02/25/22 10:00 04/01/22 09:20 Famotidine 20 Mg Tab FEEDTUBE 20 mg BID LAZARUS Administration Heparin Sodium (Porcine) 5,000 unit 02/19/22 06:00 04/01/22 05:22 Heparin 5,000 Unit/1 Ml Vial SUB-Q 5,000 unit Q8HR LAZARUS Administration Levetiracetam 500 mg 02/25/22 22:00 04/01/22 09:20 Levetiracetam 500 Mg/5 Ml Oral Liqd FEEDTUBE 500 mg BID LAZARUS Administration Levothyroxine Sodium 25 mcg 02/26/22 06:00 04/01/22 05:22 Levothyroxine 25 Mcg Tab FEEDTUBE 25 mcg QAM@0600 LAZARUS Administration Magnesium Hydroxide 30 ml 02/19/22 02:02 Magnesium Hydroxide (Mom) Oral Liqd Udc PO Q4H PRN Constipation Midodrine 2.5 mg 03/19/22 12:00 04/01/22 09:20 Midodrine 2.5 Mg Tab FEEDTUBE 2.5 mg TID@0800,1200,1600 LAZARUS Administration Multi-Ingred Cream/Lotion/Oil/Oint 1 applic 02/24/22 15:05 Mineral Oil/Petrolatum, White Ophth Oint 3.5 Gm OU Q4HR PRN Dry Eye(s) Ondansetron HCl 4 mg 02/19/22 02:02 Ondansetron 4 Mg/2 Ml Inj IV Q8H PRN Nausea And Vomiting Pravastatin Sodium 40 mg 02/25/22 22:00 03/31/22 21:01 Pravastatin 40 Mg Tab FEEDTUBE 40 mg QHS LAZARUS Administration Senna/Docusate Sodium 1 tab 02/24/22 22:00 03/31/22 23:35 Sennosides/Docusate Sodium 8.6/50 Mg Tab FEEDTUBE 1 tab BID LAZARUS Administration Sodium Chloride 10 ml 02/19/22 10:00 04/01/22 09:20 Sodium Chloride 0.9% 10 Ml Flush Syringe IV 10 ml BID LAZARUS Administration Sodium Chloride 10 ml 02/19/22 02:02 03/03/22 14:21 Sodium Chloride 0.9% 10 Ml Flush Syringe IV 10 ml PRN PRN Administration LINE FLUSH Nutrition/Malnutrition Assess - Dietary Evaluation Nutrition/Malnutrition Findings: Nutrition Notes Start: 02/19/22 14:29 Freq: Status: Active Protocol: Document 03/31/22 14:18 [facility] (Rec: 03/31/22 14:23 [facility] [id number]) Nutrition Notes Initial or Follow up Reassessment Current Diagnosis Hypertension,Respiratory Failure,Hyperlipidemia Other Pertinent Diagnosis Asp pneu, acute encephalopathy , seizure d/o, partial blindness Current Diet TF - Promote at 65ml/hr Labs/Tests Na 135 CO2 - 31 Pertinent Medications Reviewed Height 5 ft 3 in Weight 63.2 kg [place] Body Weight (kg) 56.36 BMI 24.7 Subjective/Other Information Pt remains on vent support; still awaiting decision on guardianship for trach/PEG placement. Observed Promote infusing at 50ml/hr; RN informed of goal rate. BM x 1 on yesterday. Percent of energy/protein needs met: 75% energy 99% pro Burn Absent Trauma Absent #1 Nutrition Diagnosis Inadequate oral intake Diagnosis Progress(for reassessment Continues documentation) Is patient on ventilator? Yes Is Patient Ambulatory and/or Out of Bed No [place] [phone] Calculation Used for Recommendations [facility] Additional Notes Pro needs 1.2-2g/k-126g/ day Fluid needs 1ml/kcal Nutrition Intervention Nutrition Support: Continue Promote to goal rate of 65ml/hr. Provide 50ml water flush q4h. Kcal 1,560 Protein (gm) 98 Carbohydrates (gm) 203 Fat (gm) 41 Fluid (mL) 1,309 Fiber (gm) 0 Goal #1 TF tolerance Goal #2 TF to meet 75%-100% energy and pro needs Goal #3 Wound healing Follow-Up By: 04/04/22 Additional Comments F/U: TF goal rate/tolerance <JOAQUIN ROBIN - Last Filed: 04/02/22 07:25> Assessment and Plan Assessment and plan: I saw and evaluated the patient. I agree with the findings and the plan of care as documented in the Nurse Practitioner's~note, with the following corrections and additions. Hospitalist Physical - Constitutional Vitals: Temp Pulse Resp BP Pulse Ox 97.8 F 82 17 109/62 96 04/02/22 04:00 04/02/22 06:00 04/02/22 06:00 04/02/22 06:00 04/02/22 06:00 HEART Score - HEART Score Troponin: Troponin T < 0.010 ng/mL (0.00-0.029) 02/18/22 21:02 Results - Labs CBC & Chem 7: 03/31/22 03:56 03/31/22 03:56 Labs: Laboratory Last Values WBC 9.7 K/mm3 (4.5-11.0) 03/31/22 03:56 RBC 3.08 M/mm3 (3.65-5.03) L 03/31/22 03:56 Hgb 9.5 gm/dl (11.8-15.2) L 03/31/22 03:56 Hct 30.1 % (35.5-45.6) L 03/31/22 03:56 MCV 98 fl (84-94) H 03/31/22 03:56 MCH 31 pg (28-32) 03/31/22 03:56 MCHC 32 % (32-34) 03/31/22 03:56 RDW 17.7 % (13.2-15.2) H 03/31/22 03:56 Plt Count 331 K/mm3 (140-440) 03/31/22 03:56 Lymph % (Auto) 7.5 % (13.4-35.0) L 03/28/22 04:06 [place] % (Auto) 10.5 % (0.0-7.3) H 03/28/22 04:06 Eos % (Auto) 0.9 % (0.0-4.3) 03/28/22 04:06 Baso % (Auto) 0.4 % (0.0-1.8) 03/28/22 04:06 Lymph # (Auto) 1.1 K/mm3 (1.2-5.4) L 03/28/22 04:06 [place] # (Auto) 1.5 K/mm3 (0.0-0.8) H 03/28/22 04:06 Eos # (Auto) 0.1 K/mm3 (0.0-0.4) 03/28/22 04:06 Baso # (Auto) 0.1 K/mm3 (0.0-0.1) 03/28/22 04:06 Add Manual Diff Complete 03/03/22 03:54 Total Counted 100 03/03/22 03:54 Seg Neutrophils % 80.7 % (40.0-70.0) H 03/28/22 04:06 Seg Neuts % (Manual) 95.0 % (40.0-70.0) H 03/03/22 03:54 Band Neutrophils % 0 % 03/03/22 03:54 Lymphocytes % (Manual) 3.0 % (13.4-35.0) L 03/03/22 03:54 Reactive Lymphs % (Man) 0 % 03/03/22 03:54 Monocytes % (Manual) 2.0 % (0.0-7.3) 03/03/22 03:54 Eosinophils % (Manual) 0 % (0.0-4.3) 03/03/22 03:54 Basophils % (Manual) 0 % (0.0-1.8) 03/03/22 03:54 Metamyelocytes % 0 % 03/03/22 03:54 Myelocytes % 0 % 03/03/22 03:54 Promyelocytes % 0 % 03/03/22 03:54 Blast Cells % 0 % 03/03/22 03:54 Nucleated RBC % Not Reportable 03/03/22 03:54 Seg Neutrophils # 11.4 K/mm3 (1.8-7.7) H 03/28/22 04:06 Seg Neutrophils # Man 18.5 K/mm3 (1.8-7.7) H 03/03/22 03:54 Band Neutrophils # 0.0 K/mm3 03/03/22 03:54 Lymphocytes # (Manual) 0.6 K/mm3 (1.2-5.4) L 03/03/22 03:54 Abs React Lymphs (Man) 0.0 K/mm3 03/03/22 03:54 Monocytes # (Manual) 0.4 K/mm3 (0.0-0.8) 03/03/22 03:54 Eosinophils # (Manual) 0.0 K/mm3 (0.0-0.4) 03/03/22 03:54 Basophils # (Manual) 0.0 K/mm3 (0.0-0.1) 03/03/22 03:54 Metamyelocytes # 0.0 K/mm3 03/03/22 03:54 Myelocytes # 0.0 K/mm3 03/03/22 03:54 Promyelocytes # 0.0 K/mm3 03/03/22 03:54 Blast Cells # 0.0 K/mm3 03/03/22 03:54 WBC Morphology Not Reportable 03/03/22 03:54 Hypersegmented Neuts Not Reportable 03/03/22 03:54 Hyposegmented Neuts Not Reportable 03/03/22 03:54 Hypogranular Neuts Not Reportable 03/03/22 03:54 Smudge Cells Not Reportable 03/03/22 03:54 Toxic Granulation Not Reportable 03/03/22 03:54 Toxic Vacuolation Not Reportable 03/03/22 03:54 Dohle Bodies Not Reportable 03/03/22 03:54 Pelger-Huet Anomaly Not Reportable 03/03/22 03:54 Lakshmi Rods Not Reportable 03/03/22 03:54 Platelet Estimate Consistent w auto 03/03/22 03:54 Clumped Platelets Not Reportable 03/03/22 03:54 Plt Clumps, EDTA Not Reportable 03/03/22 03:54 Large Platelets Not Reportable 03/03/22 03:54 Giant Platelets Not Reportable 03/03/22 03:54 Platelet Satelliting Not Reportable 03/03/22 03:54 Plt Morphology Comment Not Reportable 03/03/22 03:54 RBC Morphology Not Reportable 03/03/22 03:54 Dimorphic RBCs Not Reportable 03/03/22 03:54 Polychromasia Not Reportable 03/03/22 03:54 Hypochromasia Not Reportable 03/03/22 03:54 Poikilocytosis Not Reportable 03/03/22 03:54 Anisocytosis 1+ 03/03/22 03:54 Microcytosis Not Reportable 03/03/22 03:54 Macrocytosis Not Reportable 03/03/22 03:54 Spherocytes Not Reportable 03/03/22 03:54 Pappenheimer Bodies Not Reportable 03/03/22 03:54 Sickle Cells Not Reportable 03/03/22 03:54 Target Cells Not Reportable 03/03/22 03:54 Tear Drop Cells Not Reportable 03/03/22 03:54 Ovalocytes Not Reportable 03/03/22 03:54 Helmet Cells Not Reportable 03/03/22 03:54 Orell[place] Bodies Not Reportable 03/03/22 03:54 [place] Rings Not Reportable 03/03/22 03:54 [place] Cells Not Reportable 03/03/22 03:54 Bite Cells Not Reportable 03/03/22 03:54 Crenated Cell Not Reportable 03/03/22 03:54 Elliptocytes Not Reportable 03/03/22 03:54 Acanthocytes (Spur) Not Reportable 03/03/22 03:54 Rouleaux Not Reportable 03/03/22 03:54 Hemoglobin C Crystals Not Reportable 03/03/22 03:54 Schistocytes Not Reportable 03/03/22 03:54 Malaria parasites Not Reportable 03/03/22 03:54 Cash Bodies Not Reportable 03/03/22 03:54 Hem Pathologist Commnt No 03/03/22 03:54 PT 16.2 Sec. (12.2-14.9) H 03/11/22 04:02 INR 1.16 (0.87-1.13) H 03/11/22 04:02 ABG pH 7.392 pH Units (7.350-7.450) 03/22/22 14:25 ABG pCO2 54.4 mm Hg 03/22/22 14:25 ABG pO2 150.5 mm Hg (80.0-90.0) H 03/22/22 14:25 ABG HCO3 32.4 mmol/L (20.0-26.0) H 03/22/22 14:25 ABG O2 Saturation 98.8 % (95.0-99.0) 03/22/22 14:25 ABG O2 Content 15.8 (0.0-44) 03/22/22 14:25 ABG Base Excess 6.2 mmol/L (-2.0-3.0) H 03/22/22 14:25 ABG Hemoglobin 11.4 gm/dl (14.0-18.0) L 03/22/22 14:25 ABG Carboxyhemoglobin 1.6 % (0.0-5.0) 03/22/22 14:25 ABG Methemoglobin 0.6 % (0.0-1.5) 03/22/22 14:25 Oxyhemoglobin 96.6 % (95.0-99.0) 03/22/22 14:25 FiO2 30 % 03/22/22 14:25 Sodium 135 mmol/L (137-145) L 03/31/22 03:56 Potassium 4.5 mmol/L (3.6-5.0) 03/31/22 03:56 Chloride 97.4 mmol/L (98-107) L 03/31/22 03:56 Carbon Dioxide 31 mmol/L (22-30) H 03/31/22 03:56 Anion Gap 11 mmol/L 03/31/22 03:56 BUN 18 mg/dL (9-20) 03/31/22 03:56 Creatinine 0.5 mg/dL (0.8-1.3) L 03/31/22 03:56 Estimated GFR > 60 ml/min 03/31/22 03:56 BUN/Creatinine Ratio 36 % 03/31/22 03:56 Glucose 102 mg/dL (75-100) H 03/31/22 03:56 POC Glucose 95 mg/dL (70-105) 04/01/22 23:32 Lactic Acid 1.20 mmol/L (0.7-2.0) 02/18/22 21:02 Calcium 8.8 mg/dL (8.4-10.2) 03/31/22 03:56 Phosphorus 3.50 mg/dL (2.5-4.5) 03/20/22 04:09 Magnesium 2.00 mg/dL (1.7-2.3) 03/20/22 04:09 Total Bilirubin 0.30 mg/dL (0.1-1.2) 03/10/22 03:57 AST 17 units/L (5-40) 03/10/22 03:57 ALT 18 units/L (7-56) 03/10/22 03:57 Alkaline Phosphatase 89 units/L (35-129) 03/10/22 03:57 Ammonia 14.0 umol/L (25-60) L 02/18/22 23:22 Troponin T < 0.010 ng/mL (0.00-0.029) 02/18/22 21:02 Total Protein 6.6 g/dL (6.3-8.2) 03/10/22 03:57 Albumin 1.9 g/dL (3.9-5) L 03/10/22 03:57 Albumin/Globulin Ratio 0.4 % 03/10/22 03:57 Urine Color Yellow (Yellow) 03/27/22 08:36 Urine Turbidity Cloudy (Clear) 03/27/22 08:36 Urine pH 7.0 (5.0-7.0) 02/18/22 Unknown Ur Specific [place] 1.015 (1.003-1.030) 02/18/22 Unknown Specific [place] (Man) 1.020 (1.003-1.030) 03/27/22 08:36 Urine Protein <15 mg/dl mg/dL (Negative) 02/18/22 Unknown Ur Protein (Man) 1+ mg/dL (Negative) 03/27/22 08:36 Urine Glucose (UA) Negative mg/dL (Negative) 02/18/22 Unknown Urine Ketones Negative mg/dL (Negative) 02/18/22 Unknown Ur Ketones (Man) Negative (Negative) 03/27/22 08:36 Urine Blood Trace (Negative) 02/18/22 Unknown Urine Nitrite Negative (Negative) 02/18/22 Unknown Ur Nitrite (Man) Negative (Negative) 03/27/22 08:36 Ur Reducing Substances Not Reportable 03/27/22 08:36 Urine Bilirubin Negative (Negative) 02/18/22 Unknown Urine Bilirubin (Man) Negative (Negative) 03/27/22 08:36 Urine Ictotest Not Reportable 03/27/22 08:36 Urine Urobilinogen < 2.0 mg/dL (<2.0) 02/18/22 Unknown Ur Leukocyte Esterase Negative (Negative) 02/18/22 Unknown Leukocyte Esterase (Man) Moderate (Negative) 03/27/22 08:36 Urine WBC (Auto) > 182.0 /HPF (0.0-6.0) H 03/27/22 08:36 Urine RBC (Auto) 9.0 /HPF (0.0-6.0) 03/27/22 08:36 U Epithel Cells (Auto) < 1.0 /HPF (0-13.0) 03/27/22 08:36 Urine RBC (Manual) 1+ (Negative) 03/27/22 08:36 Urine Mucus Few /HPF 03/27/22 08:36 Urine Yeast (Budding) 2+ /HPF 03/27/22 08:36 Urine Opiates Screen Negative 02/18/22 Unknown Urine Methadone Screen Negative 02/18/22 Unknown Ur Barbiturates Screen Negative 02/18/22 Unknown Ur Phencyclidine Scrn Negative 02/18/22 Unknown Ur Amphetamines Screen Negative 02/18/22 Unknown U Benzodiazepines Scrn Negative 02/18/22 Unknown Urine Cocaine Screen Negative 02/18/22 Unknown U Marijuana (THC) Screen Negative 02/18/22 Unknown Drugs of Abuse Note Disclamer 02/18/22 Unknown Plasma/Serum Alcohol < 0.01 % (0-0.07) 02/18/22 21:02 Summers/IV: Voiding Method Indwelling Catheter Active Medications - Current Medications Current Medications: Generic Name Dose Route Start Last Admin Trade Name Freq PRN Reason Stop Dose Admin Acetaminophen 650 mg 03/03/22 09:00 Acetaminophen 325 Mg/10.15 Ml Oral Liqd Unit Dose FEEDTUBE Q4H PRN Pain, Mild (1-3); TEMP > 100.4 Albuterol 2.5 mg 03/12/22 20:00 04/02/22 04:00 Albuterol 2.5 Mg/3 Ml Nebu IH 2.5 mg Q6HRT LAZARUS Administration Famotidine 20 mg 02/25/22 10:00 04/01/22 21:06 Famotidine 20 Mg Tab FEEDTUBE 20 mg BID LAZARUS Administration Heparin Sodium (Porcine) 5,000 unit 02/19/22 06:00 04/02/22 05:21 Heparin 5,000 Unit/1 Ml Vial SUB-Q 5,000 unit Q8HR LAZARUS Administration Levetiracetam 500 mg 02/25/22 22:00 04/01/22 21:06 Levetiracetam 500 Mg/5 Ml Oral Liqd FEEDTUBE 500 mg BID LAZARUS Administration Levothyroxine Sodium 25 mcg 02/26/22 06:00 04/02/22 05:21 Levothyroxine 25 Mcg Tab FEEDTUBE 25 mcg QAM@0600 LAZARUS Administration Magnesium Hydroxide 30 ml 02/19/22 02:02 Magnesium Hydroxide (Mom) Oral Liqd Udc PO Q4H PRN Constipation Midodrine 2.5 mg 03/19/22 12:00 04/01/22 17:44 Midodrine 2.5 Mg Tab FEEDTUBE 2.5 mg TID@0800,1200,1600 LAZARUS Administration Multi-Ingred Cream/Lotion/Oil/Oint 1 applic 02/24/22 15:05 Mineral Oil/Petrolatum, White Ophth Oint 3.5 Gm OU Q4HR PRN Dry Eye(s) Ondansetron HCl 4 mg 02/19/22 02:02 Ondansetron 4 Mg/2 Ml Inj IV Q8H PRN Nausea And Vomiting Pravastatin Sodium 40 mg 02/25/22 22:00 04/01/22 21:06 Pravastatin 40 Mg Tab FEEDTUBE 40 mg QHS LAZARUS Administration Senna/Docusate Sodium 1 tab 02/24/22 22:00 04/01/22 21:06 Sennosides/Docusate Sodium 8.6/50 Mg Tab FEEDTUBE 1 tab BID LAZARUS Administration Sodium Chloride 10 ml 02/19/22 10:00 04/01/22 21:06 Sodium Chloride 0.9% 10 Ml Flush Syringe IV 10 ml BID LAZARUS Administration Sodium Chloride 10 ml 02/19/22 02:02 03/03/22 14:21 Sodium Chloride 0.9% 10 Ml Flush Syringe IV 10 ml PRN PRN Administration LINE FLUSH Nutrition/Malnutrition Assess - Dietary Evaluation Nutrition/Malnutrition Findings: Nutrition Notes Start: 02/19/22 14:29 Freq: Status: Active Protocol: Document 03/31/22 14:18 IVAN (Rec: 03/31/22 14:23 IVAN [id number]) Nutrition Notes Initial or Follow up Reassessment Current Diagnosis Hypertension,Respiratory Failure,Hyperlipidemia Other Pertinent Diagnosis Asp pneu, acute encephalopathy , seizure d/o, partial blindness Current Diet TF - Promote at 65ml/hr Labs/Tests Na 135 CO2 - 31 Pertinent Medications Reviewed Height 5 ft 3 in Weight 63.2 kg [place] Body Weight (kg) 56.36 BMI 24.7 Subjective/Other Information Pt remains on vent support; still awaiting decision on guardianship for trach/PEG placement. Observed Promote infusing at 50ml/hr; RN informed of goal rate. BM x 1 on yesterday. Percent of energy/protein needs met: 75% energy 99% pro Burn Absent Trauma Absent #1 Nutrition Diagnosis Inadequate oral intake Diagnosis Progress(for reassessment Continues documentation) Is patient on ventilator? Yes Is Patient Ambulatory and/or Out of Bed No REE-([facility]-confined to bed) [phone] Calculation Used for Recommendations [facility] Additional Notes Pro needs 1.2-2g/k-126g/ day Fluid needs 1ml/kcal Nutrition Intervention Nutrition Support: Continue Promote to goal rate of 65ml/hr. Provide 50ml water flush q4h. Kcal 1,560 Protein (gm) 98 Carbohydrates (gm) 203 Fat (gm) 41 Fluid (mL) 1,309 Fiber (gm) 0 Goal #1 TF tolerance Goal #2 TF to meet 75%-100% energy and pro needs Goal #3 Wound healing Follow-Up By: 04/04/22 Additional Comments F/U: TF goal rate/tolerance
--- NOTE | 2022-04-01 13:06 | Progress Note ---
Assessment and Plan 61 y/o male with abnormal CT of chest. 04/01/22: Day 36 of intubation. Continue Daily PSV. Per CM awaiting guardian appointment as courts have agreed to this. 03/31/22: Day 35 of intubation. CBC and chemistry is stable. Awaiting courts and hospital. 03/30/22: Day 34 of intubation. No labs today. Monitor fever as he had low grade temp early am. Rocephin finished yesterday. 03/29/22: Day 33 of intubation. WC now normal. No fever. Hard stop date on the abx. Awaiting Hospital and Court about guardianship. 03/28/22: Day 32 of intubation. WBC better. No fever. Still awaiting hospital and courts. 03/27/22: Day 31 of intubation. Given increase in WBC will treat empirically with Rocephin. Follow up urine cultures. CXR appears stable, await official read. Guarded prognosis. 03/26/22: Day 30 of Intubation. Daily PSV trials. no new recommendations. 03/25/22: Day 29 of intubation. RT to try PSV this am, hesistant given low sats but improved with suctioning. Still no word from the hospital in regards to guardianship. I do not feel comfortable with attempting extubation again on this patient given his quick failure and difficult re-intubation. 03/24/22: Day 28 of intubation. reviewed my partners notes from the weekend. Glad patient is tolerating PSV however do not see conventional extubation in the near future given patient's mental status and how fast he failed extubation (within an hour) on his first attempt. Patient was also a difficult re- intubation. Follow up with CM and hospital tomorrow. Continue supportive measures. 03/21/22: Day 25 of intubation. No new updates from the hospital about guardianship. Wound care saw on yesterday. Continue daily PSV trials as tolerated. Guarded prognosis. 03/20/22: Day 24 of intubation. No new recommendations. Still awaiting hospital update in regards to guardianship so that decisions can be made. Continue supportive measures. Wound care to see today. 03/19/22: Day 23 of intubation. Prognosis is still guarded. Will discuss with RT about attempts at daily PSV trials. Per notes, Wound care to see , wound was present on admission. 03/18/22: Day 22 of intubation. Prognosis remains guarded. Not able to obtain trach and peg with consent. Continue daily PSV trials as tolerated. 03/17/22: Day 21 of intubation. Still awaiting some form of decision maker for trach and peg placement. Guarded prognosis. 03/16/22: Day 20 of intubation. BP stable. Continue midodrine. Awaiting emergency guardianship from Court to obtain consent for trach and peg. Guarded prognosis. 03/15/22: Day 19 of intubation. BP now is marginal more regularly. Will give an additional liter bolus of LR now. May need to increase Midodrine back to 5. Needs trach in order to be safely weaned from ventilator. Will need peg tube placement in addition to trach. Prognosis remains guarded. Continue PSV trials as tolerated. 03/14/22: Day 18 of intubation. Vitals stable and mental status is unchanged. Still in need of tracheostomy as well as peg tube placement. No guardian appointed yet. 03/13/22: Day 17 of intubation. Agree with bolus and restarting of midodrine. was stopped previously secondary to bradycardia. If patient spikes temp, will culture blood and urine and repeat CXR. Continue daily PSV trials to assess ability for vent liberation. Continues to need trach however no family/guardian to provide consent. Guarded prognosis. 03/12/22: Day 16 of intubation. Following up with hospital in regards to guardian. Continue supportive measures. Guarded prognosis. 03/11/22: hospital now attempting to find emergency guardian to have consent for trach as ethics committee cannot comment on this matter so unable to help. U ntil then will remain intubated orally. Failed PSV yesterday, will continue to attempt on daily basis. Unfortunate situation. Guarded prognosis. 03/10/22: Today nuñez day 14 of intubation. Given patient's mental state and increased risk of aspiration, the likelihood of conventional extubation with success is very very slim and the patient has already failed this in an extremely short period of time (less than 1 hour). I suspect that he will fail again if tried and could create more difficult reintubation as he was a difficult reintubation on his failed extubation attempt. To prevent further decline and potential complications of prolonged mechanical ventilation, will discuss with ethics and the hospital to use 2 physician consent to obtain trach and peg for this patient with hopes of liberating him from the mechanical ventilator. he has very minimal vent requirements but as been stated several times above, he continues to aspirate and failed conventional extubation almost immediately. Will consult surgery today. Dr. Mancia is prepared to sign consent as well as myself. Hopeful surgery will be on board with this. Continue supportive care for now. Attempt daily PSV trials. 03/07/22: Daily PSV trials as tolerated. Still no one to step up as adult friend. patient has now been intubated since 02/24/22 and is approaching the time period in which prolonged mechanical ventilation could lead to significant complications that could be detrimental to health (infection, stenosis, malacia etc). Will discuss again with ethics but in regards to medical necessity, may need to consider two physician consent if no one is able to claim responsibility for this patient. He is a full code and we must work in his best interest to prevent further harm. Continue supportive measures but he is not a candidate for conventional extubation given his mental state, despite being on minimal support. He has already failed this before. 03/06/22: PSV trials daily. Will discuss with RT. Spoke with ethics. Plan in place and awaiting on news from [facility] and [facility]. Continue supportive measures. Patient has been intubated since 02/24/22 and is approaching the 2 week shadi of intubation will need to make decisions soon to avoid unnecessary complications related to prolonged intubation. 03/05/22: Will follow up with ethics today. Awaiting some guidance about consent for trach and peg. This is a medical necessity to liberate patient from mechanical ventilation. Continue supportive measures. Ok with daily PSV trials 03/04/22: Follow up with ethics later this afternoon. Spoke with RT and patient does have cuff leak, will stop steroids. Stopping midodrine as BP is stable and bradycardia likely from this. 03/03/22: Await ethics eval. CM has spoken with state as well. Daily cuff leaks. Will start to wean steroids tomorrow. Midodrine can cause bradycardia. If continues or worsens will stop. Guarded prognosis. 03/02/22: Continue supportive measures. Await ethics consult before surgery consult for trach and peg. no further need for fluid boluses. Will continue stress dose steroids but have daily air leak checks by RT. Still will need trach, will not attempt extubation again. Guarded prognosis. 03/01/22: Patient is having increased urine output. This could be the cause of new onset hypotension. Will bolus 2 more liters of LR now and reassess. If this continues may need to work up for SIADH including repeat head CT. Follow up ethics review of case. Will need trach for ventilator liberation. Overall prognosis remains guarded. 02/28/22: Will obtain CT neck, noncontrast to look for airway edema or other possible etiologies for failure. Needs ethics consult as given patient's mental state, inability to clear secretions appropriately, will need trach now that he has failed extubation. However he has no family and no POA so no one to give consent. Continue supportive measures. Guarded prognosis. 02/27/22: Continue improvement of oxygenation. Will drop PEEP down today with goal of being at 6 by in the morning. Will repeat CT scan to confirm improvement as no endobronchial lesion was seen, but also to make sure no parenchymal mass. There was no evidence of extrinsic compression during bronch. Likely extubation tomorrow post CT. 02/26/22: Repeat CXR now. Wean Vent as tolerated. Hopeful extubation soon. Mucous removed. NO ENDOBRONCHIAL LESION/MASS 02/25/22: Bronch tentatively planned for tomorrow with therapeutic scope. Awaiting GI lab to give a time. NPO after midnight. Continue high PEEP 02/24/22: WIll attempt to bronch tomorrow morning. NPO after midnight. Just received word from GI lab they are not able to do bronch tomorrow. Cancel NPO order. Continue to feed patient. Repeat ABG in AM along with CXR. 02/21/22: No new pulm recs for today. Please obtain repeat CXR likely on Thursday. If patient happens to get worse, likely not a candidate for bipap given his weak cough and mental state and inability to communicate. If worsens and requires intubation, will bronch then under emergent circumstances if no POA or family is able to be located. Continue CPT. Will discuss with RT about NT suctioning. 02/20/22: Saw speech while on the floor. Would like patient to be NPO now. Discussed with nurse on floor and with IMS. Same recs pulm way as yesterday. Would benefit from bronch if able to get consent as this is not emergent. Continue CPT and q shift NT suctioning. Reviewed admission in the past and of note, patient was recently admitted last month and had a CXR done on the 29 of January that was normal. Given this patient's medical history and the history that I obtained from the nursing staff that at the snf he was eating solid foods, I suspect that this is aspiration, possibly of a foreign body (most likely food) with atelectasis of the right lower lobe. It is highly unlikely that a mass evolved in size in less than a months time and patient, besides age, has no real risk factors for lung carcinoma. Discussed with the nurse and unfortunately there is no identifiable person that is able to give consent. Bronchoscopy is needed in the case to evaluate to see if lung mass is there vs foreign body, but at this time not able to do. In the meanwhile will recommend the following. 1. Will order CPT with neb therapy 3x daily 2. Suggest maybe NT suctioning q shift. May use nasal trumpet, however do not leave this device in the patient 3. Aspiration precautions 4. Consider speech eval to assess swallowing. Will continue to follow. CCT 31 minutes. Subjective Date of service: 04/01/22 Principal diagnosis: f/u Acute respiratory failure Interval history: No acute events. Objective Vital Signs - 12hr 04/01/22 04/01/22 04/01/22 02:00 02:21 03:00 Temperature Pulse Rate 70 95 H Pulse Rate [ 69 Anterior Bilateral Throughout] Respiratory 14 20 Rate Respiratory 14 Rate [Anterior Bilateral Throughout] Blood Pressure 102/52 102/52 O2 Sat by Pulse 99 Oximetry 04/01/22 04/01/22 04/01/22 03:35 04:00 04:50 Temperature 97.8 F Pulse Rate 85 75 74 Pulse Rate [ Anterior Bilateral Throughout] Respiratory 13 Rate Respiratory Rate [Anterior Bilateral Throughout] Blood Pressure 101/58 93/52 O2 Sat by Pulse 98 100 100 Oximetry 04/01/22 04/01/22 04/01/22 05:00 06:00 07:00 Temperature Pulse Rate 70 70 76 Pulse Rate [ Anterior Bilateral Throughout] Respiratory 9 L 9 L 14 Rate Respiratory Rate [Anterior Bilateral Throughout] Blood Pressure 93/52 93/51 121/68 O2 Sat by Pulse 100 100 98 Oximetry 04/01/22 04/01/22 04/01/22 07:09 07:43 07:51 Temperature 97.9 F Pulse Rate 71 Pulse Rate [ 71 Anterior Bilateral Throughout] Respiratory Rate Respiratory 14 Rate [Anterior Bilateral Throughout] Blood Pressure 121/68 O2 Sat by Pulse 97 Oximetry 04/01/22 04/01/22 04/01/22 08:00 08:15 09:00 Temperature Pulse Rate 74 84 Pulse Rate [ Anterior Bilateral Throughout] Respiratory 10 L 22 Rate Respiratory Rate [Anterior Bilateral Throughout] Blood Pressure 94/54 125/71 O2 Sat by Pulse 98 95 100 Oximetry 04/01/22 04/01/22 04/01/22 10:00 11:00 11:36 Temperature 98.0 F Pulse Rate 93 H 88 Pulse Rate [ Anterior Bilateral Throughout] Respiratory 19 19 Rate Respiratory Rate [Anterior Bilateral Throughout] Blood Pressure 130/68 126/69 O2 Sat by Pulse 95 96 Oximetry 04/01/22 11:41 Temperature Pulse Rate 87 Pulse Rate [ Anterior Bilateral Throughout] Respiratory 16 Rate Respiratory Rate [Anterior Bilateral Throughout] Blood Pressure 126/69 O2 Sat by Pulse 98 Oximetry Constitutional: alert, other (critically ill on ventilator) Eyes: non-icteric ENT: oropharynx moist Neck: supple Effort: normal Ascultation: Bilateral: diminished breath sounds, rhonchi Cardiovascular: regular rate and rhythm (no mrg) Gastrointestinal: normoactive bowel sounds, soft, non-tender (on o2 vest in place), non-distended Integumentary: normal Extremities: no cyanosis, no edema Neurologic: other (awake) Psychiatric: other (unable to assess) CBC and BMP: 03/31/22 03:56 03/31/22 03:56 ABG, PT/INR, D-dimer: ABG ABG pH 7.392 pH Units (7.350-7.450) 03/22/22 14:25 ABG pCO2 54.4 mm Hg 03/22/22 14:25 ABG pO2 150.5 mm Hg (80.0-90.0) H 03/22/22 14:25 ABG O2 Saturation 98.8 % (95.0-99.0) 03/22/22 14:25 PT/INR, D-dimer PT 16.2 Sec. (12.2-14.9) H 03/11/22 04:02 INR 1.16 (0.87-1.13) H 03/11/22 04:02 Abnormal lab findings: Abnormal Labs 02/18/22 02/18/22 02/18/22 19:34 21:02 21:02 WBC RBC Hgb Hct MCV 101 H MCH 34 H MCHC RDW 16.1 H Lymph % (Auto) [place] % (Auto) 12.4 H Lymph # (Auto) [place] # (Auto) 1.2 H Seg Neutrophils % 73.0 H Seg Neuts % (Manual) Lymphocytes % (Manual) Seg Neutrophils # Seg Neutrophils # Man Lymphocytes # (Manual) PT 16.9 H INR 1.20 H ABG pH ABG pO2 ABG HCO3 ABG O2 Saturation ABG Base Excess ABG Hemoglobin Oxyhemoglobin Sodium Potassium Chloride Carbon Dioxide BUN Creatinine Glucose POC Glucose 116 H Calcium Phosphorus AST ALT Ammonia Albumin Urine WBC (Auto) 02/18/22 02/18/22 02/18/22 21:02 22:45 23:22 WBC RBC Hgb Hct MCV MCH MCHC RDW Lymph % (Auto) [place] % (Auto) Lymph # (Auto) [place] # (Auto) Seg Neutrophils % Seg Neuts % (Manual) Lymphocytes % (Manual) Seg Neutrophils # Seg Neutrophils # Man Lymphocytes # (Manual) PT INR ABG pH ABG pO2 55.6 L ABG HCO3 28.4 H ABG O2 Saturation 91.5 L ABG Base Excess 3.8 H ABG Hemoglobin 13.2 L Oxyhemoglobin 89.6 L Sodium Potassium 5.1 H Chloride Carbon Dioxide BUN Creatinine Glucose 102 H POC Glucose Calcium Phosphorus AST 48 H ALT 64 H Ammonia 14.0 L Albumin 2.7 L Urine WBC (Auto) 02/20/22 02/20/22 02/23/22 04:59 04:59 06:29 WBC 11.4 H RBC Hgb Hct MCV 103 H MCH 33 H MCHC RDW 16.5 H Lymph % (Auto) 5.5 L [place] % (Auto) 12.1 H Lymph # (Auto) 0.6 L [place] # (Auto) 1.4 H Seg Neutrophils % 81.4 H Seg Neuts % (Manual) Lymphocytes % (Manual) Seg Neutrophils # 9.2 H Seg Neutrophils # Man Lymphocytes # (Manual) PT INR ABG pH ABG pO2 ABG HCO3 ABG O2 Saturation ABG Base Excess ABG Hemoglobin Oxyhemoglobin Sodium Potassium Chloride Carbon Dioxide BUN Creatinine Glucose POC Glucose 113 H Calcium 8.2 L Phosphorus AST ALT Ammonia Albumin Urine WBC (Auto) 02/23/22 02/23/22 02/24/22 11:22 16:10 00:02 WBC RBC Hgb Hct MCV MCH MCHC RDW Lymph % (Auto) [place] % (Auto) Lymph # (Auto) [place] # (Auto) Seg Neutrophils % Seg Neuts % (Manual) Lymphocytes % (Manual) Seg Neutrophils # Seg Neutrophils # Man Lymphocytes # (Manual) PT INR ABG pH ABG pO2 ABG HCO3 ABG O2 Saturation ABG Base Excess ABG Hemoglobin Oxyhemoglobin Sodium Potassium Chloride Carbon Dioxide BUN Creatinine Glucose POC Glucose 108 H 115 H 109 H Calcium Phosphorus AST ALT Ammonia Albumin Urine WBC (Auto) 02/24/22 02/24/22 02/24/22 11:05 11:05 13:20 WBC RBC 3.55 L Hgb Hct MCV 100 H MCH 34 H MCHC RDW 15.6 H Lymph % (Auto) [place] % (Auto) Lymph # (Auto) [place] # (Auto) Seg Neutrophils % Seg Neuts % (Manual) Lymphocytes % (Manual) Seg Neutrophils # Seg Neutrophils # Man Lymphocytes # (Manual) PT INR ABG pH ABG pO2 ABG HCO3 ABG O2 Saturation ABG Base Excess ABG Hemoglobin Oxyhemoglobin Sodium 146 H Potassium 3.2 L D Chloride 108.4 H Carbon Dioxide BUN Creatinine 0.5 L Glucose POC Glucose 111 H Calcium 7.9 L Phosphorus 2.20 L AST ALT Ammonia Albumin Urine WBC (Auto) 02/24/22 02/24/22 02/24/22 16:30 17:03 20:25 WBC RBC Hgb Hct MCV MCH MCHC RDW Lymph % (Auto) [place] % (Auto) Lymph # (Auto) [place] # (Auto) Seg Neutrophils % Seg Neuts % (Manual) Lymphocytes % (Manual) Seg Neutrophils # Seg Neutrophils # Man Lymphocytes # (Manual) PT INR ABG pH 7.319 L ABG pO2 65.3 L ABG HCO3 31.3 H ABG O2 Saturation 92.2 L ABG Base Excess 3.8 H ABG Hemoglobin 12.0 L Oxyhemoglobin 90.3 L Sodium Potassium Chloride 107.9 H Carbon Dioxide BUN 8 L Creatinine 0.4 L Glucose POC Glucose 108 H Calcium 7.6 L Phosphorus 4.60 H D AST ALT Ammonia Albumin Urine WBC (Auto) 02/25/22 02/25/22 02/25/22 04:12 04:12 05:05 WBC RBC 3.07 L Hgb 10.2 L Hct 31.5 L MCV 103 H MCH 33 H MCHC RDW 15.6 H Lymph % (Auto) [place] % (Auto) Lymph # (Auto) [place] # (Auto) Seg Neutrophils % Seg Neuts % (Manual) Lymphocytes % (Manual) Seg Neutrophils # Seg Neutrophils # Man Lymphocytes # (Manual) PT INR ABG pH ABG pO2 ABG HCO3 32.5 H ABG O2 Saturation ABG Base Excess 5.6 H ABG Hemoglobin 10.8 L Oxyhemoglobin 94.8 L Sodium Potassium 3.5 L Chloride 107.7 H Carbon Dioxide BUN Creatinine 0.5 L Glucose POC Glucose Calcium 7.0 L Phosphorus AST ALT Ammonia Albumin Urine WBC (Auto) 02/25/22 02/25/22 02/26/22 12:05 18:33 00:07 WBC RBC Hgb Hct MCV MCH MCHC RDW Lymph % (Auto) [place] % (Auto) Lymph # (Auto) [place] # (Auto) Seg Neutrophils % Seg Neuts % (Manual) Lymphocytes % (Manual) Seg Neutrophils # Seg Neutrophils # Man Lymphocytes # (Manual) PT INR ABG pH ABG pO2 ABG HCO3 ABG O2 Saturation ABG Base Excess ABG Hemoglobin Oxyhemoglobin Sodium Potassium Chloride Carbon Dioxide BUN Creatinine Glucose POC Glucose 127 H 125 H 114 H Calcium Phosphorus AST ALT Ammonia Albumin Urine WBC (Auto) 02/26/22 02/26/22 02/26/22 03:30 04:42 11:34 WBC RBC Hgb Hct MCV MCH MCHC RDW Lymph % (Auto) [place] % (Auto) Lymph # (Auto) [place] # (Auto) Seg Neutrophils % Seg Neuts % (Manual) Lymphocytes % (Manual) Seg Neutrophils # Seg Neutrophils # Man Lymphocytes # (Manual) PT INR ABG pH ABG pO2 143.2 H ABG HCO3 33.2 H ABG O2 Saturation ABG Base Excess 6.5 H ABG Hemoglobin 9.4 L Oxyhemoglobin Sodium Potassium Chloride Carbon Dioxide 32 H BUN Creatinine 0.7 L Glucose POC Glucose 114 H Calcium 8.0 L Phosphorus AST ALT Ammonia Albumin Urine WBC (Auto) 02/26/22 02/26/22 02/27/22 18:17 23:37 04:19 WBC 13.7 H RBC 2.78 L Hgb 9.3 L Hct 28.5 L MCV 103 H MCH 33 H MCHC RDW 16.3 H Lymph % (Auto) [place] % (Auto) Lymph # (Auto) [place] # (Auto) Seg Neutrophils % Seg Neuts % (Manual) Lymphocytes % (Manual) Seg Neutrophils # Seg Neutrophils # Man Lymphocytes # (Manual) PT INR ABG pH ABG pO2 ABG HCO3 ABG O2 Saturation ABG Base Excess ABG Hemoglobin Oxyhemoglobin Sodium Potassium Chloride Carbon Dioxide BUN Creatinine Glucose POC Glucose 111 H 117 H Calcium Phosphorus AST ALT Ammonia Albumin Urine WBC (Auto) 02/27/22 02/27/22 02/27/22 04:19 04:35 05:27 WBC RBC Hgb Hct MCV MCH MCHC RDW Lymph % (Auto) [place] % (Auto) Lymph # (Auto) [place] # (Auto) Seg Neutrophils % Seg Neuts % (Manual) Lymphocytes % (Manual) Seg Neutrophils # Seg Neutrophils # Man Lymphocytes # (Manual) PT INR ABG pH ABG pO2 96.3 H ABG HCO3 34.9 H ABG O2 Saturation ABG Base Excess 8.1 H ABG Hemoglobin Oxyhemoglobin Sodium Potassium Chloride Carbon Dioxide 31 H BUN Creatinine 0.6 L Glucose 107 H POC Glucose 133 H Calcium 7.8 L Phosphorus AST ALT Ammonia Albumin Urine WBC (Auto) 02/27/22 02/27/22 02/28/22 11:15 23:35 03:38 WBC 13.3 H RBC 3.05 L Hgb 10.2 L Hct 30.7 L MCV 101 H MCH 33 H MCHC RDW 16.1 H Lymph % (Auto) [place] % (Auto) Lymph # (Auto) [place] # (Auto) Seg Neutrophils % Seg Neuts % (Manual) Lymphocytes % (Manual) Seg Neutrophils # Seg Neutrophils # Man Lymphocytes # (Manual) PT INR ABG pH ABG pO2 ABG HCO3 ABG O2 Saturation ABG Base Excess ABG Hemoglobin Oxyhemoglobin Sodium Potassium Chloride Carbon Dioxide BUN Creatinine Glucose POC Glucose 129 H 122 H Calcium Phosphorus AST ALT Ammonia Albumin Urine WBC (Auto) 02/28/22 02/28/22 02/28/22 04:50 05:30 09:30 WBC RBC Hgb Hct MCV MCH MCHC RDW Lymph % (Auto) [place] % (Auto) Lymph # (Auto) [place] # (Auto) Seg Neutrophils % Seg Neuts % (Manual) Lymphocytes % (Manual) Seg Neutrophils # Seg Neutrophils # Man Lymphocytes # (Manual) PT INR ABG pH 7.451 H 7.488 H ABG pO2 77.0 L ABG HCO3 37.1 H 34.6 H ABG O2 Saturation ABG Base Excess 11.5 H 10.1 H ABG Hemoglobin 10.1 L 10.0 L Oxyhemoglobin Sodium Potassium Chloride Carbon Dioxide BUN Creatinine Glucose POC Glucose 121 H Calcium Phosphorus AST ALT Ammonia Albumin Urine WBC (Auto) 02/28/22 02/28/22 03/01/22 11:36 23:07 04:27 WBC 12.5 H RBC 2.85 L Hgb 9.5 L Hct 28.6 L MCV 101 H MCH 33 H MCHC RDW 15.7 H Lymph % (Auto) [place] % (Auto) Lymph # (Auto) [place] # (Auto) Seg Neutrophils % Seg Neuts % (Manual) Lymphocytes % (Manual) Seg Neutrophils # Seg Neutrophils # Man Lymphocytes # (Manual) PT INR ABG pH ABG pO2 ABG HCO3 ABG O2 Saturation ABG Base Excess ABG Hemoglobin Oxyhemoglobin Sodium Potassium Chloride Carbon Dioxide BUN Creatinine Glucose POC Glucose 112 H 107 H Calcium Phosphorus AST ALT Ammonia Albumin Urine WBC (Auto) 03/01/22 03/01/22 03/01/22 04:27 05:05 11:29 WBC RBC Hgb Hct MCV MCH MCHC RDW Lymph % (Auto) [place] % (Auto) Lymph # (Auto) [place] # (Auto) Seg Neutrophils % Seg Neuts % (Manual) Lymphocytes % (Manual) Seg Neutrophils # Seg Neutrophils # Man Lymphocytes # (Manual) PT INR ABG pH ABG pO2 ABG HCO3 ABG O2 Saturation ABG Base Excess ABG Hemoglobin Oxyhemoglobin Sodium 147 H D Potassium Chloride Carbon Dioxide 34 H BUN Creatinine 0.6 L Glucose 128 H POC Glucose 119 H 121 H Calcium 7.9 L Phosphorus AST ALT Ammonia Albumin Urine WBC (Auto) 03/01/22 03/01/22 03/02/22 16:15 23:57 05:18 WBC RBC Hgb Hct MCV MCH MCHC RDW Lymph % (Auto) [place] % (Auto) Lymph # (Auto) [place] # (Auto) Seg Neutrophils % Seg Neuts % (Manual) Lymphocytes % (Manual) Seg Neutrophils # Seg Neutrophils # Man Lymphocytes # (Manual) PT INR ABG pH ABG pO2 110.5 H ABG HCO3 33.0 H ABG O2 Saturation ABG Base Excess 7.4 H ABG Hemoglobin 8.6 L Oxyhemoglobin Sodium Potassium Chloride Carbon Dioxide BUN Creatinine Glucose POC Glucose 134 H 140 H Calcium Phosphorus AST ALT Ammonia Albumin Urine WBC (Auto) 03/02/22 03/02/22 03/02/22 05:53 09:04 09:04 WBC 15.0 H RBC 3.00 L Hgb 9.7 L Hct 30.7 L MCV 102 H MCH MCHC RDW 16.6 H Lymph % (Auto) [place] % (Auto) Lymph # (Auto) [place] # (Auto) Seg Neutrophils % Seg Neuts % (Manual) Lymphocytes % (Manual) Seg Neutrophils # Seg Neutrophils # Man Lymphocytes # (Manual) PT INR ABG pH ABG pO2 ABG HCO3 ABG O2 Saturation ABG Base Excess ABG Hemoglobin Oxyhemoglobin Sodium Potassium Chloride Carbon Dioxide 31 H BUN Creatinine 0.6 L Glucose 157 H POC Glucose 158 H Calcium 7.9 L Phosphorus AST ALT Ammonia Albumin Urine WBC (Auto) 03/02/22 03/02/22 03/02/22 11:36 16:25 23:17 WBC RBC Hgb Hct MCV MCH MCHC RDW Lymph % (Auto) [place] % (Auto) Lymph # (Auto) [place] # (Auto) Seg Neutrophils % Seg Neuts % (Manual) Lymphocytes % (Manual) Seg Neutrophils # Seg Neutrophils # Man Lymphocytes # (Manual) PT INR ABG pH ABG pO2 ABG HCO3 ABG O2 Saturation ABG Base Excess ABG Hemoglobin Oxyhemoglobin Sodium Potassium Chloride Carbon Dioxide BUN Creatinine Glucose POC Glucose 160 H 132 H 157 H Calcium Phosphorus AST ALT Ammonia Albumin Urine WBC (Auto) 03/03/22 03/03/22 03/03/22 03:54 03:54 05:27 WBC 19.5 H RBC 2.79 L Hgb 9.0 L Hct 28.6 L MCV 102 H MCH MCHC RDW 16.2 H Lymph % (Auto) [place] % (Auto) Lymph # (Auto) [place] # (Auto) Seg Neutrophils % Seg Neuts % (Manual) 95.0 H Lymphocytes % (Manual) 3.0 L Seg Neutrophils # Seg Neutrophils # Man 18.5 H Lymphocytes # (Manual) 0.6 L PT INR ABG pH ABG pO2 ABG HCO3 ABG O2 Saturation ABG Base Excess ABG Hemoglobin Oxyhemoglobin Sodium Potassium Chloride Carbon Dioxide BUN Creatinine 0.6 L Glucose 130 H POC Glucose 149 H Calcium 8.1 L Phosphorus AST ALT Ammonia Albumin Urine WBC (Auto) 03/03/22 03/03/22 03/04/22 11:13 17:30 00:02 WBC RBC Hgb Hct MCV MCH MCHC RDW Lymph % (Auto) [place] % (Auto) Lymph # (Auto) [place] # (Auto) Seg Neutrophils % Seg Neuts % (Manual) Lymphocytes % (Manual) Seg Neutrophils # Seg Neutrophils # Man Lymphocytes # (Manual) PT INR ABG pH ABG pO2 ABG HCO3 ABG O2 Saturation ABG Base Excess ABG Hemoglobin Oxyhemoglobin Sodium Potassium Chloride Carbon Dioxide BUN Creatinine Glucose POC Glucose 139 H 138 H 157 H Calcium Phosphorus AST ALT Ammonia Albumin Urine WBC (Auto) 03/04/22 03/04/22 03/04/22 05:32 05:32 05:48 WBC 16.1 H RBC 2.81 L Hgb 9.3 L Hct 28.8 L MCV 102 H MCH 33 H MCHC RDW 16.7 H Lymph % (Auto) [place] % (Auto) Lymph # (Auto) [place] # (Auto) Seg Neutrophils % Seg Neuts % (Manual) Lymphocytes % (Manual) Seg Neutrophils # Seg Neutrophils # Man Lymphocytes # (Manual) PT INR ABG pH ABG pO2 ABG HCO3 ABG O2 Saturation ABG Base Excess ABG Hemoglobin Oxyhemoglobin Sodium Potassium Chloride Carbon Dioxide BUN Creatinine 0.7 L Glucose 135 H POC Glucose 145 H Calcium 8.3 L Phosphorus AST ALT Ammonia Albumin Urine WBC (Auto) 03/04/22 03/04/22 03/05/22 11:34 16:29 00:28 WBC RBC Hgb Hct MCV MCH MCHC RDW Lymph % (Auto) [place] % (Auto) Lymph # (Auto) [place] # (Auto) Seg Neutrophils % Seg Neuts % (Manual) Lymphocytes % (Manual) Seg Neutrophils # Seg Neutrophils # Man Lymphocytes # (Manual) PT INR ABG pH ABG pO2 ABG HCO3 ABG O2 Saturation ABG Base Excess ABG Hemoglobin Oxyhemoglobin Sodium Potassium Chloride Carbon Dioxide BUN Creatinine Glucose POC Glucose 148 H 140 H 116 H Calcium Phosphorus AST ALT Ammonia Albumin Urine WBC (Auto) 03/05/22 03/05/22 03/05/22 06:29 11:30 17:38 WBC RBC Hgb Hct MCV MCH MCHC RDW Lymph % (Auto) [place] % (Auto) Lymph # (Auto) [place] # (Auto) Seg Neutrophils % Seg Neuts % (Manual) Lymphocytes % (Manual) Seg Neutrophils # Seg Neutrophils # Man Lymphocytes # (Manual) PT INR ABG pH ABG pO2 ABG HCO3 ABG O2 Saturation ABG Base Excess ABG Hemoglobin Oxyhemoglobin Sodium Potassium Chloride Carbon Dioxide BUN Creatinine Glucose POC Glucose 114 H 114 H 117 H Calcium Phosphorus AST ALT Ammonia Albumin Urine WBC (Auto) 03/06/22 03/06/22 03/06/22 04:17 04:17 06:06 WBC 13.4 H RBC 2.85 L Hgb 9.4 L Hct 29.0 L MCV 102 H MCH 33 H MCHC RDW 16.4 H Lymph % (Auto) [place] % (Auto) Lymph # (Auto) [place] # (Auto) Seg Neutrophils % Seg Neuts % (Manual) Lymphocytes % (Manual) Seg Neutrophils # Seg Neutrophils # Man Lymphocytes # (Manual) PT INR ABG pH ABG pO2 ABG HCO3 ABG O2 Saturation ABG Base Excess ABG Hemoglobin Oxyhemoglobin Sodium Potassium 3.5 L Chloride Carbon Dioxide 31 H BUN Creatinine 0.6 L Glucose 101 H POC Glucose 106 H Calcium 7.7 L Phosphorus 2.00 L AST ALT Ammonia Albumin Urine WBC (Auto) 03/06/22 03/06/22 03/07/22 18:04 23:50 05:14 WBC RBC Hgb Hct MCV MCH MCHC RDW Lymph % (Auto) [place] % (Auto) Lymph # (Auto) [place] # (Auto) Seg Neutrophils % Seg Neuts % (Manual) Lymphocytes % (Manual) Seg Neutrophils # Seg Neutrophils # Man Lymphocytes # (Manual) PT INR ABG pH ABG pO2 ABG HCO3 ABG O2 Saturation ABG Base Excess ABG Hemoglobin Oxyhemoglobin Sodium Potassium Chloride Carbon Dioxide BUN Creatinine Glucose POC Glucose 108 H 115 H 116 H Calcium Phosphorus AST ALT Ammonia Albumin Urine WBC (Auto) 03/07/22 03/07/22 03/08/22 11:42 18:13 04:34 WBC RBC 2.86 L Hgb 9.2 L Hct 29.3 L MCV 103 H MCH MCHC 31 L RDW 16.9 H Lymph % (Auto) [place] % (Auto) Lymph # (Auto) [place] # (Auto) Seg Neutrophils % Seg Neuts % (Manual) Lymphocytes % (Manual) Seg Neutrophils # Seg Neutrophils # Man Lymphocytes # (Manual) PT INR ABG pH ABG pO2 ABG HCO3 ABG O2 Saturation ABG Base Excess ABG Hemoglobin Oxyhemoglobin Sodium Potassium Chloride Carbon Dioxide BUN Creatinine Glucose POC Glucose 123 H 109 H Calcium Phosphorus AST ALT Ammonia Albumin Urine WBC (Auto) 03/08/22 03/08/22 03/08/22 04:34 11:29 16:34 WBC RBC Hgb Hct MCV MCH MCHC RDW Lymph % (Auto) [place] % (Auto) Lymph # (Auto) [place] # (Auto) Seg Neutrophils % Seg Neuts % (Manual) Lymphocytes % (Manual) Seg Neutrophils # Seg Neutrophils # Man Lymphocytes # (Manual) PT INR ABG pH ABG pO2 ABG HCO3 ABG O2 Saturation ABG Base Excess ABG Hemoglobin Oxyhemoglobin Sodium Potassium Chloride Carbon Dioxide 33 H BUN Creatinine 0.5 L Glucose 109 H POC Glucose 117 H 109 H Calcium 7.6 L Phosphorus AST ALT Ammonia Albumin Urine WBC (Auto) 03/08/22 03/09/22 03/10/22 23:56 11:15 03:57 WBC RBC 2.99 L Hgb 9.9 L Hct 30.3 L MCV 102 H MCH 33 H MCHC RDW 16.8 H Lymph % (Auto) 13.3 L [place] % (Auto) 12.5 H Lymph # (Auto) [place] # (Auto) 1.3 H Seg Neutrophils % 72.4 H Seg Neuts % (Manual) Lymphocytes % (Manual) Seg Neutrophils # Seg Neutrophils # Man Lymphocytes # (Manual) PT INR ABG pH ABG pO2 ABG HCO3 ABG O2 Saturation ABG Base Excess ABG Hemoglobin Oxyhemoglobin Sodium Potassium Chloride Carbon Dioxide BUN Creatinine Glucose POC Glucose 106 H 110 H Calcium Phosphorus AST ALT Ammonia Albumin Urine WBC (Auto) 03/10/22 03/10/22 03/10/22 03:57 04:50 16:04 WBC RBC Hgb Hct MCV MCH MCHC RDW Lymph % (Auto) [place] % (Auto) Lymph # (Auto) [place] # (Auto) Seg Neutrophils % Seg Neuts % (Manual) Lymphocytes % (Manual) Seg Neutrophils # Seg Neutrophils # Man Lymphocytes # (Manual) PT INR ABG pH 7.465 H ABG pO2 ABG HCO3 31.9 H ABG O2 Saturation ABG Base Excess 7.3 H ABG Hemoglobin 11.0 L Oxyhemoglobin Sodium Potassium 3.4 L Chloride Carbon Dioxide BUN Creatinine 0.6 L Glucose POC Glucose 115 H Calcium 8.1 L Phosphorus AST ALT Ammonia Albumin 1.9 L Urine WBC (Auto) 03/11/22 03/11/22 03/11/22 04:02 04:02 04:02 WBC 12.0 H RBC 2.81 L Hgb 9.2 L Hct 29.1 L MCV 103 H MCH 33 H MCHC RDW 17.5 H Lymph % (Auto) [place] % (Auto) Lymph # (Auto) [place] # (Auto) Seg Neutrophils % Seg Neuts % (Manual) Lymphocytes % (Manual) Seg Neutrophils # Seg Neutrophils # Man Lymphocytes # (Manual) PT 16.2 H INR 1.16 H ABG pH ABG pO2 ABG HCO3 ABG O2 Saturation ABG Base Excess ABG Hemoglobin Oxyhemoglobin Sodium Potassium Chloride Carbon Dioxide BUN Creatinine 0.5 L Glucose 104 H POC Glucose Calcium 7.9 L Phosphorus AST ALT Ammonia Albumin Urine WBC (Auto) 03/11/22 03/11/22 03/11/22 05:10 11:07 16:32 WBC RBC Hgb Hct MCV MCH MCHC RDW Lymph % (Auto) [place] % (Auto) Lymph # (Auto) [place] # (Auto) Seg Neutrophils % Seg Neuts % (Manual) Lymphocytes % (Manual) Seg Neutrophils # Seg Neutrophils # Man Lymphocytes # (Manual) PT INR ABG pH 7.476 H ABG pO2 ABG HCO3 29.7 H ABG O2 Saturation ABG Base Excess 5.7 H ABG Hemoglobin 9.1 L Oxyhemoglobin Sodium Potassium Chloride Carbon Dioxide BUN Creatinine Glucose POC Glucose 108 H 121 H Calcium Phosphorus AST ALT Ammonia Albumin Urine WBC (Auto) 03/12/22 03/13/22 03/13/22 05:51 06:08 12:02 WBC RBC 2.73 L Hgb 9.0 L Hct 27.5 L MCV 101 H MCH 33 H MCHC RDW 17.2 H Lymph % (Auto) [place] % (Auto) Lymph # (Auto) [place] # (Auto) Seg Neutrophils % Seg Neuts % (Manual) Lymphocytes % (Manual) Seg Neutrophils # Seg Neutrophils # Man Lymphocytes # (Manual) PT INR ABG pH ABG pO2 ABG HCO3 ABG O2 Saturation ABG Base Excess ABG Hemoglobin Oxyhemoglobin Sodium Potassium Chloride Carbon Dioxide BUN Creatinine Glucose POC Glucose 116 H 111 H Calcium Phosphorus AST ALT Ammonia Albumin Urine WBC (Auto) 03/13/22 03/13/22 03/14/22 12:48 18:17 03:58 WBC RBC 2.97 L Hgb 9.7 L Hct 30.0 L MCV 101 H MCH 33 H MCHC RDW 16.7 H Lymph % (Auto) [place] % (Auto) Lymph # (Auto) [place] # (Auto) Seg Neutrophils % Seg Neuts % (Manual) Lymphocytes % (Manual) Seg Neutrophils # Seg Neutrophils # Man Lymphocytes # (Manual) PT INR ABG pH ABG pO2 ABG HCO3 ABG O2 Saturation ABG Base Excess ABG Hemoglobin Oxyhemoglobin Sodium Potassium Chloride Carbon Dioxide BUN Creatinine Glucose POC Glucose 125 H 114 H Calcium Phosphorus AST ALT Ammonia Albumin Urine WBC (Auto) 03/14/22 03/14/22 03/14/22 03:58 13:01 16:41 WBC RBC Hgb Hct MCV MCH MCHC RDW Lymph % (Auto) [place] % (Auto) Lymph # (Auto) [place] # (Auto) Seg Neutrophils % Seg Neuts % (Manual) Lymphocytes % (Manual) Seg Neutrophils # Seg Neutrophils # Man Lymphocytes # (Manual) PT INR ABG pH ABG pO2 ABG HCO3 ABG O2 Saturation ABG Base Excess ABG Hemoglobin Oxyhemoglobin Sodium Potassium Chloride Carbon Dioxide BUN Creatinine 0.6 L Glucose POC Glucose 118 H 109 H Calcium 8.2 L Phosphorus AST ALT Ammonia Albumin Urine WBC (Auto) 03/16/22 03/16/22 03/17/22 05:28 05:28 23:19 WBC RBC 2.81 L Hgb 9.1 L Hct 27.8 L MCV 99 H MCH MCHC RDW 17.0 H Lymph % (Auto) [place] % (Auto) Lymph # (Auto) [place] # (Auto) Seg Neutrophils % Seg Neuts % (Manual) Lymphocytes % (Manual) Seg Neutrophils # Seg Neutrophils # Man Lymphocytes # (Manual) PT INR ABG pH ABG pO2 ABG HCO3 ABG O2 Saturation ABG Base Excess ABG Hemoglobin Oxyhemoglobin Sodium Potassium Chloride Carbon Dioxide BUN Creatinine 0.5 L Glucose POC Glucose 113 H Calcium 8.2 L Phosphorus AST ALT Ammonia Albumin Urine WBC (Auto) 03/20/22 03/20/22 03/20/22 04:09 04:09 17:22 WBC RBC 2.90 L Hgb 9.6 L Hct 28.9 L MCV 100 H MCH 33 H MCHC RDW 17.4 H Lymph % (Auto) [place] % (Auto) Lymph # (Auto) [place] # (Auto) Seg Neutrophils % Seg Neuts % (Manual) Lymphocytes % (Manual) Seg Neutrophils # Seg Neutrophils # Man Lymphocytes # (Manual) PT INR ABG pH ABG pO2 ABG HCO3 ABG O2 Saturation ABG Base Excess ABG Hemoglobin Oxyhemoglobin Sodium Potassium Chloride Carbon Dioxide BUN Creatinine 0.6 L Glucose POC Glucose 110 H Calcium 8.2 L Phosphorus AST ALT Ammonia Albumin Urine WBC (Auto) 03/21/22 03/21/22 03/22/22 18:24 23:09 12:18 WBC RBC Hgb Hct MCV MCH MCHC RDW Lymph % (Auto) [place] % (Auto) Lymph # (Auto) [place] # (Auto) Seg Neutrophils % Seg Neuts % (Manual) Lymphocytes % (Manual) Seg Neutrophils # Seg Neutrophils # Man Lymphocytes # (Manual) PT INR ABG pH ABG pO2 ABG HCO3 ABG O2 Saturation ABG Base Excess ABG Hemoglobin Oxyhemoglobin Sodium Potassium Chloride Carbon Dioxide BUN Creatinine Glucose POC Glucose 110 H 107 H 106 H Calcium Phosphorus AST ALT Ammonia Albumin Urine WBC (Auto) 03/22/22 03/23/22 03/23/22 14:25 00:21 11:31 WBC RBC Hgb Hct MCV MCH MCHC RDW Lymph % (Auto) [place] % (Auto) Lymph # (Auto) [place] # (Auto) Seg Neutrophils % Seg Neuts % (Manual) Lymphocytes % (Manual) Seg Neutrophils # Seg Neutrophils # Man Lymphocytes # (Manual) PT INR ABG pH ABG pO2 150.5 H ABG HCO3 32.4 H ABG O2 Saturation ABG Base Excess 6.2 H ABG Hemoglobin 11.4 L Oxyhemoglobin Sodium Potassium Chloride Carbon Dioxide BUN Creatinine Glucose POC Glucose 107 H 110 H Calcium Phosphorus AST ALT Ammonia Albumin Urine WBC (Auto) 03/24/22 03/24/22 03/24/22 03:47 03:47 05:56 WBC RBC 3.18 L Hgb 10.1 L Hct 31.1 L MCV 98 H MCH MCHC RDW 17.4 H Lymph % (Auto) [place] % (Auto) Lymph # (Auto) [place] # (Auto) Seg Neutrophils % Seg Neuts % (Manual) Lymphocytes % (Manual) Seg Neutrophils # Seg Neutrophils # Man Lymphocytes # (Manual) PT INR ABG pH ABG pO2 ABG HCO3 ABG O2 Saturation ABG Base Excess ABG Hemoglobin Oxyhemoglobin Sodium Potassium Chloride Carbon Dioxide BUN Creatinine 0.5 L Glucose POC Glucose 107 H Calcium Phosphorus AST ALT Ammonia Albumin Urine WBC (Auto) 03/24/22 03/25/22 03/25/22 11:15 00:14 11:24 WBC RBC Hgb Hct MCV MCH MCHC RDW Lymph % (Auto) [place] % (Auto) Lymph # (Auto) [place] # (Auto) Seg Neutrophils % Seg Neuts % (Manual) Lymphocytes % (Manual) Seg Neutrophils # Seg Neutrophils # Man Lymphocytes # (Manual) PT INR ABG pH ABG pO2 ABG HCO3 ABG O2 Saturation ABG Base Excess ABG Hemoglobin Oxyhemoglobin Sodium Potassium Chloride Carbon Dioxide BUN Creatinine Glucose POC Glucose 126 H 109 H 110 H Calcium Phosphorus AST ALT Ammonia Albumin Urine WBC (Auto) 03/25/22 03/26/22 03/26/22 16:27 05:18 11:15 WBC RBC Hgb Hct MCV MCH MCHC RDW Lymph % (Auto) [place] % (Auto) Lymph # (Auto) [place] # (Auto) Seg Neutrophils % Seg Neuts % (Manual) Lymphocytes % (Manual) Seg Neutrophils # Seg Neutrophils # Man Lymphocytes # (Manual) PT INR ABG pH ABG pO2 ABG HCO3 ABG O2 Saturation ABG Base Excess ABG Hemoglobin Oxyhemoglobin Sodium Potassium Chloride Carbon Dioxide BUN Creatinine Glucose POC Glucose 123 H 114 H 135 H Calcium Phosphorus AST ALT Ammonia Albumin Urine WBC (Auto) 03/26/22 03/27/22 03/27/22 18:08 03:52 03:52 WBC 17.1 H RBC 2.94 L Hgb 9.2 L Hct 29.3 L MCV 100 H MCH MCHC 31 L RDW 17.5 H Lymph % (Auto) [place] % (Auto) Lymph # (Auto) [place] # (Auto) Seg Neutrophils % Seg Neuts % (Manual) Lymphocytes % (Manual) Seg Neutrophils # Seg Neutrophils # Man Lymphocytes # (Manual) PT INR ABG pH ABG pO2 ABG HCO3 ABG O2 Saturation ABG Base Excess ABG Hemoglobin Oxyhemoglobin Sodium 136 L Potassium Chloride Carbon Dioxide 32 H BUN 23 H Creatinine 0.6 L Glucose POC Glucose 130 H Calcium 8.2 L Phosphorus AST ALT Ammonia Albumin Urine WBC (Auto) 03/27/22 03/27/22 03/27/22 08:36 12:55 18:27 WBC RBC Hgb Hct MCV MCH MCHC RDW Lymph % (Auto) [place] % (Auto) Lymph # (Auto) [place] # (Auto) Seg Neutrophils % Seg Neuts % (Manual) Lymphocytes % (Manual) Seg Neutrophils # Seg Neutrophils # Man Lymphocytes # (Manual) PT INR ABG pH ABG pO2 ABG HCO3 ABG O2 Saturation ABG Base Excess ABG Hemoglobin Oxyhemoglobin Sodium Potassium Chloride Carbon Dioxide BUN Creatinine Glucose POC Glucose 137 H 114 H Calcium Phosphorus AST ALT Ammonia Albumin Urine WBC (Auto) > 182.0 H 03/28/22 03/28/22 03/28/22 01:00 04:06 04:52 WBC 14.2 H RBC 2.76 L Hgb 8.6 L Hct 26.8 L MCV 97 H MCH MCHC RDW 17.4 H Lymph % (Auto) 7.5 L [place] % (Auto) 10.5 H Lymph # (Auto) 1.1 L [place] # (Auto) 1.5 H Seg Neutrophils % 80.7 H Seg Neuts % (Manual) Lymphocytes % (Manual) Seg Neutrophils # 11.4 H Seg Neutrophils # Man Lymphocytes # (Manual) PT INR ABG pH ABG pO2 ABG HCO3 ABG O2 Saturation ABG Base Excess ABG Hemoglobin Oxyhemoglobin Sodium Potassium Chloride Carbon Dioxide BUN Creatinine Glucose POC Glucose 111 H 111 H Calcium Phosphorus AST ALT Ammonia Albumin Urine WBC (Auto) 03/28/22 03/28/22 03/29/22 12:09 23:23 04:22 WBC RBC 2.85 L Hgb 8.9 L Hct 27.8 L MCV 98 H MCH MCHC RDW 17.8 H Lymph % (Auto) [place] % (Auto) Lymph # (Auto) [place] # (Auto) Seg Neutrophils % Seg Neuts % (Manual) Lymphocytes % (Manual) Seg Neutrophils # Seg Neutrophils # Man Lymphocytes # (Manual) PT INR ABG pH ABG pO2 ABG HCO3 ABG O2 Saturation ABG Base Excess ABG Hemoglobin Oxyhemoglobin Sodium Potassium Chloride Carbon Dioxide BUN Creatinine Glucose POC Glucose 114 H 112 H Calcium Phosphorus AST ALT Ammonia Albumin Urine WBC (Auto) 03/29/22 03/29/22 03/29/22 05:56 12:22 23:39 WBC RBC Hgb Hct MCV MCH MCHC RDW Lymph % (Auto) [place] % (Auto) Lymph # (Auto) [place] # (Auto) Seg Neutrophils % Seg Neuts % (Manual) Lymphocytes % (Manual) Seg Neutrophils # Seg Neutrophils # Man Lymphocytes # (Manual) PT INR ABG pH ABG pO2 ABG HCO3 ABG O2 Saturation ABG Base Excess ABG Hemoglobin Oxyhemoglobin Sodium Potassium Chloride Carbon Dioxide BUN Creatinine Glucose POC Glucose 116 H 130 H 121 H Calcium Phosphorus AST ALT Ammonia Albumin Urine WBC (Auto) 03/30/22 03/30/22 03/30/22 11:52 16:04 23:05 WBC RBC Hgb Hct MCV MCH MCHC RDW Lymph % (Auto) [place] % (Auto) Lymph # (Auto) [place] # (Auto) Seg Neutrophils % Seg Neuts % (Manual) Lymphocytes % (Manual) Seg Neutrophils # Seg Neutrophils # Man Lymphocytes # (Manual) PT INR ABG pH ABG pO2 ABG HCO3 ABG O2 Saturation ABG Base Excess ABG Hemoglobin Oxyhemoglobin Sodium Potassium Chloride Carbon Dioxide BUN Creatinine Glucose POC Glucose 127 H 122 H 113 H Calcium Phosphorus AST ALT Ammonia Albumin Urine WBC (Auto) 03/31/22 03/31/22 03/31/22 03:56 03:56 10:59 WBC RBC 3.08 L Hgb 9.5 L Hct 30.1 L MCV 98 H MCH MCHC RDW 17.7 H Lymph % (Auto) [place] % (Auto) Lymph # (Auto) [place] # (Auto) Seg Neutrophils % Seg Neuts % (Manual) Lymphocytes % (Manual) Seg Neutrophils # Seg Neutrophils # Man Lymphocytes # (Manual) PT INR ABG pH ABG pO2 ABG HCO3 ABG O2 Saturation ABG Base Excess ABG Hemoglobin Oxyhemoglobin Sodium 135 L Potassium Chloride 97.4 L Carbon Dioxide 31 H BUN Creatinine 0.5 L Glucose 102 H POC Glucose 120 H Calcium Phosphorus AST ALT Ammonia Albumin Urine WBC (Auto) 04/01/22 00:09 WBC RBC Hgb Hct MCV MCH MCHC RDW Lymph % (Auto) [place] % (Auto) Lymph # (Auto) [place] # (Auto) Seg Neutrophils % Seg Neuts % (Manual) Lymphocytes % (Manual) Seg Neutrophils # Seg Neutrophils # Man Lymphocytes # (Manual) PT INR ABG pH ABG pO2 ABG HCO3 ABG O2 Saturation ABG Base Excess ABG Hemoglobin Oxyhemoglobin Sodium Potassium Chloride Carbon Dioxide BUN Creatinine Glucose POC Glucose 118 H Calcium Phosphorus AST ALT Ammonia Albumin Urine WBC (Auto)
[2022-04-01] MEDS: SENNOSIDES/DOCUSATE SODIUM 8.6/50 MG TAB FEEDTUBE SCH ×2 (14:02→21:06)
[2022-04-01] MEDS: PRAVASTATIN 40 MG TAB FEEDTUBE SCH (21:06)
[2022-04-02] MEDS: ALBUTEROL 2.5 MG/3 ML NEBU IH SCH ×4 (04:00→19:10)
[2022-04-02] MEDS: HEPARIN 5,000 UNIT/1 ML VIAL SUB-Q SCH ×3 (05:21→21:13)
[2022-04-02] MEDS: LEVOTHYROXINE 25 MCG TAB FEEDTUBE SCH (05:21)
[2022-04-02] MEDS: FAMOTIDINE 20 MG TAB FEEDTUBE SCH ×2 (09:37→21:12)
[2022-04-02] MEDS: MIDODRINE 2.5 MG TAB FEEDTUBE SCH ×3 (09:37→17:22)
[2022-04-02] MEDS: levETIRAcetam 500 MG/5 ML ORAL LIQD FEEDTUBE SCH ×2 (09:37→21:12)
[2022-04-02] MEDS: SENNOSIDES/DOCUSATE SODIUM 8.6/50 MG TAB FEEDTUBE SCH ×2 (09:37→21:12)
--- NOTE | 2022-04-02 10:56 | Progress Note ---
<KEATON GOLD - Last Filed: 04/03/22 00:21> Assessment and Plan Assessment and plan: This is a 51-year-old male with HTN, seizure disorder, Down syndrome, HLD, partial blindness admitted with aspiration pneumonia, probable bronchogenic carcinoma, acute hypoxic respiratory failure and acute encephalopathy Hospital course to date: 02/19/2022. Consult pulmonary for further evaluation and possible bronchoscopy. I suspect patient has component of aspiration pneumonia as well. We will obtain a speech therapy evaluation for swallowing and start empiric antibiotics. Continue O2 supplementation to maintain sats greater than 92%. 02/20/2022. Pulmonary feels that the abnormality seen on CT scan is highly unlikely for a mass given negative chest x-ray 1 month ago and no risk factors. Etiology is likely secondary to aspiration from possibly a foreign body most likely food with atelectasis of the right lower lobe. Bronchoscopy is needed in the case to evaluate to see if lung mass is there vs foreign body, but at this time not able to do because no identifiable person that is able to give consent. Continue aspiration precautions and continue speech therapy evaluation for swallowing. Keep n.p.o. for now 02/21/2022. Patient remains NPO. Consider DHT placement. Follow-up with speech therapy evaluation. Pulmonology to consider bronchoscopy if able to obtain consent. Continue IV antibiotics for aspiration pneumonia 02/22/2022. Patient remains NPO. Consider DHT placement. Follow-up with speech therapy evaluation. Pulmonology to consider bronchoscopy if able to obtain consent. Continue IV antibiotics for aspiration pneumonia 02/23/2022. DHT placed yesterday. TF initiated for nutritional support. Patient currently with strict NPO. Aspiration precautions. Pulmonology to consider bronchoscopy if able to obtain consent. Continue IV antibiotics for aspiration pneumonia 02/24: Patient was transferred to the ICU for further monitoring. This morning patient remained on high flow nasal cannula on 40 L/100% and despite repeated nasotracheal suctioning patient SPO2 remained in the 80s. Patient was placed on nonrebreather and SPO2 increased to upper 80s. Patient was subsequently intubated by anesthesia. Started on sedation. 02/25: Patient remains sedated on fentanyl, potassium and magnesium repleted. IV fluids and amlodipine discontinued. Possible bronchoscopy tomorrow. 02/26: Patient had a bronchoscopy today which showed mucus and no endobronchial lesions or masses. FiO2 was increased to 100 during and postprocedure weaning as tolerated. Repeat CXR is much improved after bronc. Given 1 L LR bolus due to hypotension. No acute events reported overnight. 02/27: Decreased PEEP, will repeat CT of chest. no acute changes overnight. 02/28: Patient was extubated today however had to be be intubated shortly after. Patient ETT looked mispositioned on x-ray and Dr. Alonoz did do a bedside bronc. Patient was briefly hypotensive and on Levophed postintubation however Levophed was quickly titrated off and patient did not require central line. No acute events reported overnight. Will obtain CT neck d/t difficulty intubating. Ethi committee consulted. 03/04: Overnight patient was hypotensive and started on IVF. Patient started on steroids as no air leak noted and hypotension and given 2 L LR 03/05: Overnight patient received bolus per RN report, no orders seen. Continue supportive care 03/03: SB on the monitor, HR as low as 37, VSS. Will continue to monitor for now. Awaiting on desicion from [facility] for possible trach and PEG. Continue daily air leak per [facility] 03/04: MAIDA overnight. Remains stable on the vent. Awaiting on desicion from [facility] for possible trach and PEG. Continue current supportive measures 03/05: MAIDA overnight. Awaiting on desicion from [facility] for possible trach and PEG. Midodrine held yesterday, HR improved. Continue current supportive measures. Daily PSV trial as tolerated per [facility] 03/06: Remains stable on the vent. Continue current supportive measures, daily PSV trial per [facility]. Awaiting on desicion for possible trach and PEG. 03/07: MAIDA overnight, remains stable. Continue daily PSV trial as tolerated. Awaiting on desicion for possible trach and PEG. 03/08: Patient failed PSV trial this am due to tachycardia and increase RR. Continue supportive measures and daily PSV trial as tolerated. Possible discussion with [facility] and [facility] on Thursday in regards to medical necessity, may need to consider two physician consent if no one is able to claim responsibility for this patient. 03/09: MAIDA overnight. Continue current supportive measures and daily PSV trail as tolerated. Awaiting on desicion for possible trach and PEG, discussion with Ethics possibly tomorrow per [facility]. 03/10: no acute events overnight, PSV today. replete potassium. 03/11: No acute events reported overnight, patient failed PSV yesterday and will repeat today. Hospital to start guardianship process. 03/12: No acute events overnight. PSV today 03/13: Patient given 500ml normal saline and started on midodrine for h ypotension. No acute events reported overnight. Failed pressure support again this morning. 03/14: No acute events reported overnight, patient blood pressure seems better therefore midodrine discontinued. RT placed on CPAP need lasted for couple hours. Will remove summers 03/15: Midodrine was restarted yesterday evening for hypotension, Summers catheter not removed due to sacral ulcer and history of retention. Unable to crush Flomax and patient will not tolerate doxazosin given hypotension. Given LR bolus this morning. If blood pressure continues to be borderline after bolus, we will adjust management as needed. CPAP as tolerated 03/16: No acute events reported overnight, patient placed on CPAP trial this morning which he failed. 03/17: RT attempted PSV which he failed again today. No acute events reported overnight. 03/18: Awaiting ethic committee's decision on Trach/PEG. Patient tolerated PSV trial for over 3 hrs today, continue daily PSV trial as tolerated. 03/19: MAIDA overnight. Continue current supportive measures. Daily PSV trial as tolerated. Awaiting on desicion for possible trach and PEG. 03/20: MAIDA overnight. Daily PSV trial as tolerated. Awaiting decision on guardian ship for trach and PEG. 03/21: Remains stable, condition unchanged. Continue supportive measures and daily PSV trial as tolerated. 03/22: MAIDA overnight. Continue current supportive measures. Daily PSV trial as tolerated 03/23: MAIDA overnight, continue supportive measures and daily PSV trial as tolerated. 03/24: Condition unchanged. Still waiting on Ethics' decision for possible trach/Peg. Continue supportive measures and daily PSV trial as tolerated. 03/25: PSV attempt today, does open eyes to stimuli, no acute events overnight. 03/26: Yesterday evening Summers catheter was removed as he was due to be changed, condom cath placed. Overnight patient had good urine output and per RN repeated bladder scans showed less than 200 mL of urine. We will continue to monitor urine output. RT to attempt PSV 03/27: Patient has leukocytosis today and UA has pyuria with moderate LE therefore he will be started on antibiotics. 03/28: Leukocytosis improving. No acute events reported overnight. 03/29: No acute events overnight. Continue supportive care. 03/30: no acute events overnight, PSV again. 03/31: Condition unchanged, remains on low vent setting. Possible Ethics meeting today and tomorrow for possible guardianship. Will consult General Surgery for possible trach and Peg once guardianship decision has been made. Continue supportive measures and daily PSV trial as tolerated 04/01: Remains stable on the vent. Court hearing today, awaiting decision on appointed guardian by the [facility]. Continue current supportive measures and daily PSV trial as tolerated 04/02: MAIDA overnight. Stable on the vent. Awaiting on desicion on appointed guardian. Continue current supportive measures and daily PSV trial as tolerated. Neuro: Acute encephalopathy, h/o seizure disorder, Down syndrome, partial blindness -Intubated and off sedation -Reorientation as needed -Maintain sleep-wake cycle -aspiration/seizure precautions -As needed analgesia -CT head showed no acute abnormality -Continue Keppra Cardiac: Hypotension, h/o HTN, HLD -Cardiology consulted, appreciate recommendations -Blood pressure monitoring per protocol -d/c amlodipine -On PO Midodrine for hypotension Respiratory: Acute hypoxic respiratory failure, r/o bronchogenic carcinoma -[facility] consulted, appreciate recommendations -Intubated on 02/24 with a 8.0 at 23 at the lips but extubated 02/28 -reintubated 02/28 with 8.0 OETT -Vent settings: AC rate 14, TV 360, PEEP 6, FO2 30% -See RT notes for titration -VAP bundle -SPO2 monitoring -02/18 CTA chest showed no evidence of pulmonary embolism, suspected bronchogenic carcinoma with associated obstruction of the right lower lobe proximal bronchus segment, 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 adenopathy and suspected to left lower lobe metastatic nodule -02/26 Bronch->mucous, no lesion noted -02/27 CT chest showed right mainstem bronchus patent with small amount of interval bronchial fluid which may be mucus (this may account for the appearance of the prior CTA chest fluid-filled airway rather than entering bronchial lesion), previously seen complete left lower lobe since related to bronchial occlusion has significantly improved, there is persistent compressive atelectasis in the right lower lung secondary to the pleural effusion, bilateral pleural effusions, right lung pneumonia -CT neck showed no acute changes - IV Steroids stopped GI: Moderate protein calorie malnutrition -PPI -NTR consulted for tube feedings -BR: Senokot S : Hypernatremia (resolved) -FWF q4 hr -Monitor intake and output -Renally dose medications -Avoid nephrotoxic medications -Trend BMP ID: UTI, Aspiration PNA (resolved), sacral wound (POA) -UA with pyuria, mod LE with leukocytosis -WOCN consulted -Dressing changes per nursing -S/p Rocephin for 5 days (02/19-02/24) -Current abx therapy: rocephin for 3 days -Monitor WBC and temperature curve Endo: NAD -Avoid hypoglycemia -Accu-Cheks every 6 -Avoid hypoglycemia Heme: NAD -Trend CBC -Transfuse hemoglobin less than 7 -SCDs to BLE while in bed The high probability of a clinically significant, sudden or life threatening deterioration of the [resp] system(s) required my full and direct attention, intervention and personal management. The aggregate critical care time was [60] minutes. This time is in addition to time spent performing reported procedures but includes the following: [x] Data Review and interpretation [x] Patient assessment and monitoring of vital signs [x] Documentation [x] Medication orders and management Disposition Plan: ICU Total Time Spent with Patient (Minutes): 60 History Interval history: Patient seen and examined at the bedside. Remains stable on low vent setting. SR on the monitor this am, VSS. MAIDA overnight Hospitalist Physical - Physical exam Narrative exam: General appearance: Present: no acute distress, well-nourished, obese - EENT Eyes: Present: PERRL - Neck Neck: Present: normal ROM - Respiratory Respiratory effort: normal Respiratory: bilateral: rhonchi - Cardiovascular Rhythm: regular Heart Sounds: Present: S1 & S2 - Extremities Extremities: no ischemia, pulses intact, pulses symmetrical Extremity abnormal: edema - Peripheral Assessment Generalized Edema Type: Non-pitting Edema Degree: 1+ Capillary Refill: < 3 seconds Skin Temperature: Warm Peripheral Pulses: within normal limits - Abdominal General gastrointestinal: soft, non-distended, normal bowel sounds - Integumentary Integumentary: Present: warm, dry - Psychiatric Psychiatric: other (Intubated, unresponsive. Not on any sedations) - Neurologic Neurologic: moves all extremities, other (Intubated, unresponsive. Not on any sedations) - Allied Health Allied health notes reviewed: nursing, case management - Constitutional Vitals: Temp Pulse Resp BP Pulse Ox 97.8 F 73 14 110/65 97 04/02/22 08:00 04/02/22 10:00 04/02/22 10:00 04/02/22 10:00 04/02/22 10:00 HEART Score - HEART Score Troponin: Troponin T < 0.010 ng/mL (0.00-0.029) 02/18/22 21:02 Results - Labs CBC & Chem 7: 03/31/22 03:56 03/31/22 03:56 Labs: Laboratory Last Values WBC 9.7 K/mm3 (4.5-11.0) 03/31/22 03:56 RBC 3.08 M/mm3 (3.65-5.03) L 03/31/22 03:56 Hgb 9.5 gm/dl (11.8-15.2) L 03/31/22 03:56 Hct 30.1 % (35.5-45.6) L 03/31/22 03:56 MCV 98 fl (84-94) H 03/31/22 03:56 MCH 31 pg (28-32) 03/31/22 03:56 MCHC 32 % (32-34) 03/31/22 03:56 RDW 17.7 % (13.2-15.2) H 03/31/22 03:56 Plt Count 331 K/mm3 (140-440) 03/31/22 03:56 Lymph % (Auto) 7.5 % (13.4-35.0) L 03/28/22 04:06 [place] % (Auto) 10.5 % (0.0-7.3) H 03/28/22 04:06 Eos % (Auto) 0.9 % (0.0-4.3) 03/28/22 04:06 Baso % (Auto) 0.4 % (0.0-1.8) 03/28/22 04:06 Lymph # (Auto) 1.1 K/mm3 (1.2-5.4) L 03/28/22 04:06 [place] # (Auto) 1.5 K/mm3 (0.0-0.8) H 03/28/22 04:06 Eos # (Auto) 0.1 K/mm3 (0.0-0.4) 03/28/22 04:06 Baso # (Auto) 0.1 K/mm3 (0.0-0.1) 03/28/22 04:06 Add Manual Diff Complete 03/03/22 03:54 Total Counted 100 03/03/22 03:54 Seg Neutrophils % 80.7 % (40.0-70.0) H 03/28/22 04:06 Seg Neuts % (Manual) 95.0 % (40.0-70.0) H 03/03/22 03:54 Band Neutrophils % 0 % 03/03/22 03:54 Lymphocytes % (Manual) 3.0 % (13.4-35.0) L 03/03/22 03:54 Reactive Lymphs % (Man) 0 % 03/03/22 03:54 Monocytes % (Manual) 2.0 % (0.0-7.3) 03/03/22 03:54 Eosinophils % (Manual) 0 % (0.0-4.3) 03/03/22 03:54 Basophils % (Manual) 0 % (0.0-1.8) 03/03/22 03:54 Metamyelocytes % 0 % 03/03/22 03:54 Myelocytes % 0 % 03/03/22 03:54 Promyelocytes % 0 % 03/03/22 03:54 Blast Cells % 0 % 03/03/22 03:54 Nucleated RBC % Not Reportable 03/03/22 03:54 Seg Neutrophils # 11.4 K/mm3 (1.8-7.7) H 03/28/22 04:06 Seg Neutrophils # Man 18.5 K/mm3 (1.8-7.7) H 03/03/22 03:54 Band Neutrophils # 0.0 K/mm3 03/03/22 03:54 Lymphocytes # (Manual) 0.6 K/mm3 (1.2-5.4) L 03/03/22 03:54 Abs React Lymphs (Man) 0.0 K/mm3 03/03/22 03:54 Monocytes # (Manual) 0.4 K/mm3 (0.0-0.8) 03/03/22 03:54 Eosinophils # (Manual) 0.0 K/mm3 (0.0-0.4) 03/03/22 03:54 Basophils # (Manual) 0.0 K/mm3 (0.0-0.1) 03/03/22 03:54 Metamyelocytes # 0.0 K/mm3 03/03/22 03:54 Myelocytes # 0.0 K/mm3 03/03/22 03:54 Promyelocytes # 0.0 K/mm3 03/03/22 03:54 Blast Cells # 0.0 K/mm3 03/03/22 03:54 WBC Morphology Not Reportable 03/03/22 03:54 Hypersegmented Neuts Not Reportable 03/03/22 03:54 Hyposegmented Neuts Not Reportable 03/03/22 03:54 Hypogranular Neuts Not Reportable 03/03/22 03:54 Smudge Cells Not Reportable 03/03/22 03:54 Toxic Granulation Not Reportable 03/03/22 03:54 Toxic Vacuolation Not Reportable 03/03/22 03:54 Dohle Bodies Not Reportable 03/03/22 03:54 Pelger-Huet Anomaly Not Reportable 03/03/22 03:54 Lakshmi Rods Not Reportable 03/03/22 03:54 Platelet Estimate Consistent w auto 03/03/22 03:54 Clumped Platelets Not Reportable 03/03/22 03:54 Plt Clumps, EDTA Not Reportable 03/03/22 03:54 Large Platelets Not Reportable 03/03/22 03:54 Giant Platelets Not Reportable 03/03/22 03:54 Platelet Satelliting Not Reportable 03/03/22 03:54 Plt Morphology Comment Not Reportable 03/03/22 03:54 RBC Morphology Not Reportable 03/03/22 03:54 Dimorphic RBCs Not Reportable 03/03/22 03:54 Polychromasia Not Reportable 03/03/22 03:54 Hypochromasia Not Reportable 03/03/22 03:54 Poikilocytosis Not Reportable 03/03/22 03:54 Anisocytosis 1+ 03/03/22 03:54 Microcytosis Not Reportable 03/03/22 03:54 Macrocytosis Not Reportable 03/03/22 03:54 Spherocytes Not Reportable 03/03/22 03:54 Pappenheimer Bodies Not Reportable 03/03/22 03:54 Sickle Cells Not Reportable 03/03/22 03:54 Target Cells Not Reportable 03/03/22 03:54 Tear Drop Cells Not Reportable 03/03/22 03:54 Ovalocytes Not Reportable 03/03/22 03:54 Helmet Cells Not Reportable 03/03/22 03:54 [place] Bodies Not Reportable 03/03/22 03:54 [place] Rings Not Reportable 03/03/22 03:54 [place] Cells Not Reportable 03/03/22 03:54 Bite Cells Not Reportable 03/03/22 03:54 Crenated Cell Not Reportable 03/03/22 03:54 Elliptocytes Not Reportable 03/03/22 03:54 Acanthocytes (Spur) Not Reportable 03/03/22 03:54 Rouleaux Not Reportable 03/03/22 03:54 Hemoglobin C Crystals Not Reportable 03/03/22 03:54 Schistocytes Not Reportable 03/03/22 03:54 Malaria parasites Not Reportable 03/03/22 03:54 [place] Bodies Not Reportable 03/03/22 03:54 Hem Pathologist Commnt No 03/03/22 03:54 PT 16.2 Sec. (12.2-14.9) H 03/11/22 04:02 INR 1.16 (0.87-1.13) H 03/11/22 04:02 ABG pH 7.392 pH Units (7.350-7.450) 03/22/22 14:25 ABG pCO2 54.4 mm Hg 03/22/22 14:25 ABG pO2 150.5 mm Hg (80.0-90.0) H 03/22/22 14:25 ABG HCO3 32.4 mmol/L (20.0-26.0) H 03/22/22 14:25 ABG O2 Saturation 98.8 % (95.0-99.0) 03/22/22 14:25 ABG O2 Content 15.8 (0.0-44) 03/22/22 14:25 ABG Base Excess 6.2 mmol/L (-2.0-3.0) H 03/22/22 14:25 ABG Hemoglobin 11.4 gm/dl (14.0-18.0) L 03/22/22 14:25 ABG Carboxyhemoglobin 1.6 % (0.0-5.0) 03/22/22 14:25 ABG Methemoglobin 0.6 % (0.0-1.5) 03/22/22 14:25 Oxyhemoglobin 96.6 % (95.0-99.0) 03/22/22 14:25 FiO2 30 % 03/22/22 14:25 Sodium 135 mmol/L (137-145) L 03/31/22 03:56 Potassium 4.5 mmol/L (3.6-5.0) 03/31/22 03:56 Chloride 97.4 mmol/L (98-107) L 03/31/22 03:56 Carbon Dioxide 31 mmol/L (22-30) H 03/31/22 03:56 Anion Gap 11 mmol/L 03/31/22 03:56 BUN 18 mg/dL (9-20) 03/31/22 03:56 Creatinine 0.5 mg/dL (0.8-1.3) L 03/31/22 03:56 Estimated GFR > 60 ml/min 03/31/22 03:56 BUN/Creatinine Ratio 36 % 03/31/22 03:56 Glucose 102 mg/dL (75-100) H 03/31/22 03:56 POC Glucose 95 mg/dL (70-105) 04/01/22 23:32 Lactic Acid 1.20 mmol/L (0.7-2.0) 02/18/22 21:02 Calcium 8.8 mg/dL (8.4-10.2) 03/31/22 03:56 Phosphorus 3.50 mg/dL (2.5-4.5) 03/20/22 04:09 Magnesium 2.00 mg/dL (1.7-2.3) 03/20/22 04:09 Total Bilirubin 0.30 mg/dL (0.1-1.2) 03/10/22 03:57 AST 17 units/L (5-40) 03/10/22 03:57 ALT 18 units/L (7-56) 03/10/22 03:57 Alkaline Phosphatase 89 units/L (35-129) 03/10/22 03:57 Ammonia 14.0 umol/L (25-60) L 02/18/22 23:22 Troponin T < 0.010 ng/mL (0.00-0.029) 02/18/22 21:02 Total Protein 6.6 g/dL (6.3-8.2) 03/10/22 03:57 Albumin 1.9 g/dL (3.9-5) L 03/10/22 03:57 Albumin/Globulin Ratio 0.4 % 03/10/22 03:57 Urine Color Yellow (Yellow) 03/27/22 08:36 Urine Turbidity Cloudy (Clear) 03/27/22 08:36 Urine pH 7.0 (5.0-7.0) 02/18/22 Unknown Ur Specific [place] 1.015 (1.003-1.030) 02/18/22 Unknown Specific [place] (Man) 1.020 (1.003-1.030) 03/27/22 08:36 Urine Protein <15 mg/dl mg/dL (Negative) 02/18/22 Unknown Ur Protein (Man) 1+ mg/dL (Negative) 03/27/22 08:36 Urine Glucose (UA) Negative mg/dL (Negative) 02/18/22 Unknown Urine Ketones Negative mg/dL (Negative) 02/18/22 Unknown Ur Ketones (Man) Negative (Negative) 03/27/22 08:36 Urine Blood Trace (Negative) 02/18/22 Unknown Urine Nitrite Negative (Negative) 02/18/22 Unknown Ur Nitrite (Man) Negative (Negative) 03/27/22 08:36 Ur Reducing Substances Not Reportable 03/27/22 08:36 Urine Bilirubin Negative (Negative) 02/18/22 Unknown Urine Bilirubin (Man) Negative (Negative) 03/27/22 08:36 Urine Ictotest Not Reportable 03/27/22 08:36 Urine Urobilinogen < 2.0 mg/dL (<2.0) 02/18/22 Unknown Ur Leukocyte Esterase Negative (Negative) 02/18/22 Unknown Leukocyte Esterase (Man) Moderate (Negative) 03/27/22 08:36 Urine WBC (Auto) > 182.0 /HPF (0.0-6.0) H 03/27/22 08:36 Urine RBC (Auto) 9.0 /HPF (0.0-6.0) 03/27/22 08:36 U Epithel Cells (Auto) < 1.0 /HPF (0-13.0) 03/27/22 08:36 Urine RBC (Manual) 1+ (Negative) 03/27/22 08:36 Urine Mucus Few /HPF 03/27/22 08:36 Urine Yeast (Budding) 2+ /HPF 03/27/22 08:36 Urine Opiates Screen Negative 02/18/22 Unknown Urine Methadone Screen Negative 02/18/22 Unknown Ur Barbiturates Screen Negative 02/18/22 Unknown Ur Phencyclidine Scrn Negative 02/18/22 Unknown Ur Amphetamines Screen Negative 02/18/22 Unknown U Benzodiazepines Scrn Negative 02/18/22 Unknown Urine Cocaine Screen Negative 02/18/22 Unknown U Marijuana (THC) Screen Negative 02/18/22 Unknown Drugs of Abuse Note Disclamer 02/18/22 Unknown Plasma/Serum Alcohol < 0.01 % (0-0.07) 02/18/22 21:02 Summers/IV: Voiding Method Indwelling Catheter Active Medications - Current Medications Current Medications: Generic Name Dose Route Start Last Admin Trade Name Freq PRN Reason Stop Dose Admin Acetaminophen 650 mg 03/03/22 09:00 Acetaminophen 325 Mg/10.15 Ml Oral Liqd Unit Dose FEEDTUBE Q4H PRN Pain, Mild (1-3); TEMP > 100.4 Albuterol 2.5 mg 03/12/22 20:00 04/02/22 07:33 Albuterol 2.5 Mg/3 Ml Nebu IH 2.5 mg Q6HRT LAZARUS Administration Famotidine 20 mg 02/25/22 10:00 04/02/22 09:37 Famotidine 20 Mg Tab FEEDTUBE 20 mg BID LAZARUS Administration Heparin Sodium (Porcine) 5,000 unit 02/19/22 06:00 04/02/22 05:21 Heparin 5,000 Unit/1 Ml Vial SUB-Q 5,000 unit Q8HR LAZARUS Administration Levetiracetam 500 mg 02/25/22 22:00 04/02/22 09:37 Levetiracetam 500 Mg/5 Ml Oral Liqd FEEDTUBE 500 mg BID LAZARUS Administration Levothyroxine Sodium 25 mcg 02/26/22 06:00 04/02/22 05:21 Levothyroxine 25 Mcg Tab FEEDTUBE 25 mcg QAM@0600 LAZARUS Administration Magnesium Hydroxide 30 ml 02/19/22 02:02 Magnesium Hydroxide (Mom) Oral Liqd Udc PO Q4H PRN Constipation Midodrine 2.5 mg 03/19/22 12:00 04/02/22 09:37 Midodrine 2.5 Mg Tab FEEDTUBE 2.5 mg TID@0800,1200,1600 LAZARUS Administration Multi-Ingred Cream/Lotion/Oil/Oint 1 applic 02/24/22 15:05 Mineral Oil/Petrolatum, White Ophth Oint 3.5 Gm OU Q4HR PRN Dry Eye(s) Ondansetron HCl 4 mg 02/19/22 02:02 Ondansetron 4 Mg/2 Ml Inj IV Q8H PRN Nausea And Vomiting Pravastatin Sodium 40 mg 02/25/22 22:00 04/01/22 21:06 Pravastatin 40 Mg Tab FEEDTUBE 40 mg QHS LAZARUS Administration Senna/Docusate Sodium 1 tab 02/24/22 22:00 04/02/22 09:37 Sennosides/Docusate Sodium 8.6/50 Mg Tab FEEDTUBE 1 tab BID LAZARUS Administration Sodium Chloride 10 ml 02/19/22 10:00 04/02/22 09:38 Sodium Chloride 0.9% 10 Ml Flush Syringe IV 10 ml BID LAZARUS Administration Sodium Chloride 10 ml 02/19/22 02:02 03/03/22 14:21 Sodium Chloride 0.9% 10 Ml Flush Syringe IV 10 ml PRN PRN Administration LINE FLUSH Nutrition/Malnutrition Assess - Dietary Evaluation Nutrition/Malnutrition Findings: Nutrition Notes Start: 02/19/22 14:29 Freq: Status: Active Protocol: Document 03/31/22 14:18 [facility] (Rec: 03/31/22 14:23 [facility] [id number]) Nutrition Notes Initial or Follow up Reassessment Current Diagnosis Hypertension,Respiratory Failure,Hyperlipidemia Other Pertinent Diagnosis Asp pneu, acute encephalopathy , seizure d/o, partial blindness Current Diet TF - Promote at 65ml/hr Labs/Tests Na 135 CO2 - 31 Pertinent Medications Reviewed Height 5 ft 3 in Weight 63.2 kg [place] Body Weight (kg) 56.36 BMI 24.7 Subjective/Other Information Pt remains on vent support; still awaiting decision on guardianship for trach/PEG placement. Observed Promote infusing at 50ml/hr; RN informed of goal rate. BM x 1 on yesterday. Percent of energy/protein needs met: 75% energy 99% pro Burn Absent Trauma Absent #1 Nutrition Diagnosis Inadequate oral intake Diagnosis Progress(for reassessment Continues documentation) Is patient on ventilator? Yes Is Patient Ambulatory and/or Out of Bed No REE-([facility]-confined to bed) [phone] Calculation Used for Recommendations [facility] Additional Notes Pro needs 1.2-2g/k-126g/ day Fluid needs 1ml/kcal Nutrition Intervention Nutrition Support: Continue Promote to goal rate of 65ml/hr. Provide 50ml water flush q4h. Kcal 1,560 Protein (gm) 98 Carbohydrates (gm) 203 Fat (gm) 41 Fluid (mL) 1,309 Fiber (gm) 0 Goal #1 TF tolerance Goal #2 TF to meet 75%-100% energy and pro needs Goal #3 Wound healing Follow-Up By: 04/04/22 Additional Comments F/U: TF goal rate/tolerance <JOAQUIN ROBIN - Last Filed: 04/03/22 07:16> Assessment and Plan Assessment and plan: I saw and evaluated the patient. I agree with the findings and the plan of care as documented in the Nurse Practitioner's~note, with the following corrections and additions. Hospitalist Physical - Constitutional Vitals: Temp Pulse Resp BP Pulse Ox 97.5 F L 93 H 14 104/65 93 04/03/22 04:00 04/03/22 06:00 04/03/22 06:00 04/03/22 06:00 04/03/22 06:00 HEART Score - HEART Score Troponin: Troponin T < 0.010 ng/mL (0.00-0.029) 02/18/22 21:02 Results - Labs CBC & Chem 7: 04/03/22 04:04 04/03/22 04:04 Labs: Laboratory Last Values WBC 6.7 K/mm3 (4.5-11.0) 04/03/22 04:04 RBC 3.85 M/mm3 (3.65-5.03) 04/03/22 04:04 Hgb 11.9 gm/dl (11.8-15.2) 04/03/22 04:04 Hct 37.6 % (35.5-45.6) 04/03/22 04:04 MCV 98 fl (84-94) H 04/03/22 04:04 MCH 31 pg (28-32) 04/03/22 04:04 MCHC 32 % (32-34) 04/03/22 04:04 RDW 17.9 % (13.2-15.2) H 04/03/22 04:04 Plt Count 378 K/mm3 (140-440) 04/03/22 04:04 Lymph % (Auto) 7.5 % (13.4-35.0) L 03/28/22 04:06 [place] % (Auto) 10.5 % (0.0-7.3) H 03/28/22 04:06 Eos % (Auto) 0.9 % (0.0-4.3) 03/28/22 04:06 Baso % (Auto) 0.4 % (0.0-1.8) 03/28/22 04:06 Lymph # (Auto) 1.1 K/mm3 (1.2-5.4) L 03/28/22 04:06 [place] # (Auto) 1.5 K/mm3 (0.0-0.8) H 03/28/22 04:06 Eos # (Auto) 0.1 K/mm3 (0.0-0.4) 03/28/22 04:06 Baso # (Auto) 0.1 K/mm3 (0.0-0.1) 03/28/22 04:06 Add Manual Diff Complete 03/03/22 03:54 Total Counted 100 03/03/22 03:54 Seg Neutrophils % 80.7 % (40.0-70.0) H 03/28/22 04:06 Seg Neuts % (Manual) 95.0 % (40.0-70.0) H 03/03/22 03:54 Band Neutrophils % 0 % 03/03/22 03:54 Lymphocytes % (Manual) 3.0 % (13.4-35.0) L 03/03/22 03:54 Reactive Lymphs % (Man) 0 % 03/03/22 03:54 Monocytes % (Manual) 2.0 % (0.0-7.3) 03/03/22 03:54 Eosinophils % (Manual) 0 % (0.0-4.3) 03/03/22 03:54 Basophils % (Manual) 0 % (0.0-1.8) 03/03/22 03:54 Metamyelocytes % 0 % 03/03/22 03:54 Myelocytes % 0 % 03/03/22 03:54 Promyelocytes % 0 % 03/03/22 03:54 Blast Cells % 0 % 03/03/22 03:54 Nucleated RBC % Not Reportable 03/03/22 03:54 Seg Neutrophils # 11.4 K/mm3 (1.8-7.7) H 03/28/22 04:06 Seg Neutrophils # Man 18.5 K/mm3 (1.8-7.7) H 03/03/22 03:54 Band Neutrophils # 0.0 K/mm3 03/03/22 03:54 Lymphocytes # (Manual) 0.6 K/mm3 (1.2-5.4) L 03/03/22 03:54 Abs React Lymphs (Man) 0.0 K/mm3 03/03/22 03:54 Monocytes # (Manual) 0.4 K/mm3 (0.0-0.8) 03/03/22 03:54 Eosinophils # (Manual) 0.0 K/mm3 (0.0-0.4) 03/03/22 03:54 Basophils # (Manual) 0.0 K/mm3 (0.0-0.1) 03/03/22 03:54 Metamyelocytes # 0.0 K/mm3 03/03/22 03:54 Myelocytes # 0.0 K/mm3 03/03/22 03:54 Promyelocytes # 0.0 K/mm3 03/03/22 03:54 Blast Cells # 0.0 K/mm3 03/03/22 03:54 WBC Morphology Not Reportable 03/03/22 03:54 Hypersegmented Neuts Not Reportable 03/03/22 03:54 Hyposegmented Neuts Not Reportable 03/03/22 03:54 Hypogranular Neuts Not Reportable 03/03/22 03:54 Smudge Cells Not Reportable 03/03/22 03:54 Toxic Granulation Not Reportable 03/03/22 03:54 Toxic Vacuolation Not Reportable 03/03/22 03:54 Dohle Bodies Not Reportable 03/03/22 03:54 Pelger-Huet Anomaly Not Reportable 03/03/22 03:54 Lakshmi Rods Not Reportable 03/03/22 03:54 Platelet Estimate Consistent w auto 03/03/22 03:54 Clumped Platelets Not Reportable 03/03/22 03:54 Plt Clumps, EDTA Not Reportable 03/03/22 03:54 Large Platelets Not Reportable 03/03/22 03:54 Giant Platelets Not Reportable 03/03/22 03:54 Platelet Satelliting Not Reportable 03/03/22 03:54 Plt Morphology Comment Not Reportable 03/03/22 03:54 RBC Morphology Not Reportable 03/03/22 03:54 Dimorphic RBCs Not Reportable 03/03/22 03:54 Polychromasia Not Reportable 03/03/22 03:54 Hypochromasia Not Reportable 03/03/22 03:54 Poikilocytosis Not Reportable 03/03/22 03:54 Anisocytosis 1+ 03/03/22 03:54 Microcytosis Not Reportable 03/03/22 03:54 Macrocytosis Not Reportable 03/03/22 03:54 Spherocytes Not Reportable 03/03/22 03:54 Pappenheimer Bodies Not Reportable 03/03/22 03:54 Sickle Cells Not Reportable 03/03/22 03:54 Target Cells Not Reportable 03/03/22 03:54 Tear Drop Cells Not Reportable 03/03/22 03:54 Ovalocytes Not Reportable 03/03/22 03:54 Helmet Cells Not Reportable 03/03/22 03:54 [place] Bodies Not Reportable 03/03/22 03:54 [place] Rings Not Reportable 03/03/22 03:54 [place] Cells Not Reportable 03/03/22 03:54 Bite Cells Not Reportable 03/03/22 03:54 Crenated Cell Not Reportable 03/03/22 03:54 Elliptocytes Not Reportable 03/03/22 03:54 Acanthocytes (Spur) Not Reportable 03/03/22 03:54 Rouleaux Not Reportable 03/03/22 03:54 Hemoglobin C Crystals Not Reportable 03/03/22 03:54 Schistocytes Not Reportable 03/03/22 03:54 Malaria parasites Not Reportable 03/03/22 03:54 [place] Bodies Not Reportable 03/03/22 03:54 Hem Pathologist Commnt No 03/03/22 03:54 PT 15.2 Sec. (12.2-14.9) H 04/03/22 04:04 INR 1.05 (0.87-1.13) 04/03/22 04:04 APTT 33.4 Sec. (24.2-36.6) 04/03/22 04:04 ABG pH 7.392 pH Units (7.350-7.450) 03/22/22 14:25 ABG pCO2 54.4 mm Hg 03/22/22 14:25 ABG pO2 150.5 mm Hg (80.0-90.0) H 03/22/22 14:25 ABG HCO3 32.4 mmol/L (20.0-26.0) H 03/22/22 14:25 ABG O2 Saturation 98.8 % (95.0-99.0) 03/22/22 14:25 ABG O2 Content 15.8 (0.0-44) 03/22/22 14:25 ABG Base Excess 6.2 mmol/L (-2.0-3.0) H 03/22/22 14:25 ABG Hemoglobin 11.4 gm/dl (14.0-18.0) L 03/22/22 14:25 ABG Carboxyhemoglobin 1.6 % (0.0-5.0) 03/22/22 14:25 ABG Methemoglobin 0.6 % (0.0-1.5) 03/22/22 14:25 Oxyhemoglobin 96.6 % (95.0-99.0) 03/22/22 14:25 FiO2 30 % 03/22/22 14:25 Sodium 136 mmol/L (137-145) L 04/03/22 04:04 Potassium 5.0 mmol/L (3.6-5.0) 04/03/22 04:04 Chloride 97.1 mmol/L (98-107) L 04/03/22 04:04 Carbon Dioxide 30 mmol/L (22-30) 04/03/22 04:04 Anion Gap 14 mmol/L 04/03/22 04:04 BUN 20 mg/dL (9-20) 04/03/22 04:04 Creatinine 0.6 mg/dL (0.8-1.3) L 04/03/22 04:04 Estimated GFR > 60 ml/min 04/03/22 04:04 BUN/Creatinine Ratio 33 % 04/03/22 04:04 Glucose 91 mg/dL (75-100) 04/03/22 04:04 POC Glucose 104 mg/dL (70-105) 04/02/22 23:12 Lactic Acid 1.20 mmol/L (0.7-2.0) 02/18/22 21:02 Calcium 9.1 mg/dL (8.4-10.2) 04/03/22 04:04 Phosphorus 4.90 mg/dL (2.5-4.5) H 04/03/22 04:04 Magnesium 2.00 mg/dL (1.7-2.3) 04/03/22 04:04 Total Bilirubin 0.30 mg/dL (0.1-1.2) 03/10/22 03:57 AST 17 units/L (5-40) 03/10/22 03:57 ALT 18 units/L (7-56) 03/10/22 03:57 Alkaline Phosphatase 89 units/L (35-129) 03/10/22 03:57 Ammonia 14.0 umol/L (25-60) L 02/18/22 23:22 Troponin T < 0.010 ng/mL (0.00-0.029) 02/18/22 21:02 Total Protein 6.6 g/dL (6.3-8.2) 03/10/22 03:57 Albumin 1.9 g/dL (3.9-5) L 03/10/22 03:57 Albumin/Globulin Ratio 0.4 % 03/10/22 03:57 Urine Color Yellow (Yellow) 03/27/22 08:36 Urine Turbidity Cloudy (Clear) 03/27/22 08:36 Urine pH 7.0 (5.0-7.0) 02/18/22 Unknown Ur Specific [place] 1.015 (1.003-1.030) 02/18/22 Unknown Specific [place] (Man) 1.020 (1.003-1.030) 03/27/22 08:36 Urine Protein <15 mg/dl mg/dL (Negative) 02/18/22 Unknown Ur Protein (Man) 1+ mg/dL (Negative) 03/27/22 08:36 Urine Glucose (UA) Negative mg/dL (Negative) 02/18/22 Unknown Urine Ketones Negative mg/dL (Negative) 02/18/22 Unknown Ur Ketones (Man) Negative (Negative) 03/27/22 08:36 Urine Blood Trace (Negative) 02/18/22 Unknown Urine Nitrite Negative (Negative) 02/18/22 Unknown Ur Nitrite (Man) Negative (Negative) 03/27/22 08:36 Ur Reducing Substances Not Reportable 03/27/22 08:36 Urine Bilirubin Negative (Negative) 02/18/22 Unknown Urine Bilirubin (Man) Negative (Negative) 03/27/22 08:36 Urine Ictotest Not Reportable 03/27/22 08:36 Urine Urobilinogen < 2.0 mg/dL (<2.0) 02/18/22 Unknown Ur Leukocyte Esterase Negative (Negative) 02/18/22 Unknown Leukocyte Esterase (Man) Moderate (Negative) 03/27/22 08:36 Urine WBC (Auto) > 182.0 /HPF (0.0-6.0) H 03/27/22 08:36 Urine RBC (Auto) 9.0 /HPF (0.0-6.0) 03/27/22 08:36 U Epithel Cells (Auto) < 1.0 /HPF (0-13.0) 03/27/22 08:36 Urine RBC (Manual) 1+ (Negative) 03/27/22 08:36 Urine Mucus Few /HPF 03/27/22 08:36 Urine Yeast (Budding) 2+ /HPF 03/27/22 08:36 Urine Opiates Screen Negative 02/18/22 Unknown Urine Methadone Screen Negative 02/18/22 Unknown Ur Barbiturates Screen Negative 02/18/22 Unknown Ur Phencyclidine Scrn Negative 02/18/22 Unknown Ur Amphetamines Screen Negative 02/18/22 Unknown U Benzodiazepines Scrn Negative 02/18/22 Unknown Urine Cocaine Screen Negative 02/18/22 Unknown U Marijuana (THC) Screen Negative 02/18/22 Unknown Drugs of Abuse Note Disclamer 02/18/22 Unknown Plasma/Serum Alcohol < 0.01 % (0-0.07) 02/18/22 21:02 [place]/IV: Voiding Method Indwelling Catheter Active Medications - Current Medications Current Medications: Generic Name Dose Route Start Last Admin Trade Name Freq PRN Reason Stop Dose Admin Acetaminophen 650 mg 03/03/22 09:00 Acetaminophen 325 Mg/10.15 Ml Oral Liqd Unit Dose FEEDTUBE Q4H PRN Pain, Mild (1-3); TEMP > 100.4 Albuterol 2.5 mg 03/12/22 20:00 04/03/22 03:49 Albuterol 2.5 Mg/3 Ml Nebu IH 2.5 mg Q6HRT LAZARUS Administration Famotidine 20 mg 02/25/22 10:00 04/02/22 21:12 Famotidine 20 Mg Tab FEEDTUBE 20 mg BID LAZARUS Administration Heparin Sodium (Porcine) 5,000 unit 02/19/22 06:00 04/03/22 06:24 Heparin 5,000 Unit/1 Ml Vial SUB-Q 5,000 unit Q8HR LAZARUS Administration Levetiracetam 500 mg 02/25/22 22:00 04/02/22 21:12 Levetiracetam 500 Mg/5 Ml Oral Liqd FEEDTUBE 500 mg BID LAZARUS Administration Levothyroxine Sodium 25 mcg 02/26/22 06:00 04/03/22 06:23 Levothyroxine 25 Mcg Tab FEEDTUBE 25 mcg QAM@0600 LAZARUS Administration Magnesium Hydroxide 30 ml 02/19/22 02:02 04/03/22 04:14 Magnesium Hydroxide (Mom) Oral Liqd Udc PO 30 ml Q4H PRN Administration Constipation Midodrine 2.5 mg 03/19/22 12:00 04/02/22 17:22 Midodrine 2.5 Mg Tab FEEDTUBE 2.5 mg TID@0800,1200,1600 LAZARUS Administration Multi-Ingred Cream/Lotion/Oil/Oint 1 applic 02/24/22 15:05 Mineral Oil/Petrolatum, White Ophth Oint 3.5 Gm OU Q4HR PRN Dry Eye(s) Ondansetron HCl 4 mg 02/19/22 02:02 Ondansetron 4 Mg/2 Ml Inj IV Q8H PRN Nausea And Vomiting Pravastatin Sodium 40 mg 02/25/22 22:00 04/02/22 21:12 Pravastatin 40 Mg Tab FEEDTUBE 40 mg QHS LAZARUS Administration Senna/Docusate Sodium 1 tab 02/24/22 22:00 04/02/22 21:12 Sennosides/Docusate Sodium 8.6/50 Mg Tab FEEDTUBE 1 tab BID LAZARUS Administration Sodium Chloride 10 ml 02/19/22 10:00 04/02/22 21:13 Sodium Chloride 0.9% 10 Ml Flush Syringe IV 10 ml BID LAZARUS Administration Sodium Chloride 10 ml 02/19/22 02:02 03/03/22 14:21 Sodium Chloride 0.9% 10 Ml Flush Syringe IV 10 ml PRN PRN Administration LINE FLUSH Nutrition/Malnutrition Assess - Dietary Evaluation Nutrition/Malnutrition Findings: Nutrition Notes Start: 02/19/22 14:29 Freq: Status: Active Protocol: Document 03/31/22 14:18 [facility] (Rec: 03/31/22 14:23 [facility] [id number]) Nutrition Notes Initial or Follow up Reassessment Current Diagnosis Hypertension,Respiratory Failure,Hyperlipidemia Other Pertinent Diagnosis Asp pneu, acute encephalopathy , seizure d/o, partial blindness Current Diet TF - Promote at 65ml/hr Labs/Tests Na 135 CO2 - 31 Pertinent Medications Reviewed Height 5 ft 3 in Weight 63.2 kg [place] Body Weight (kg) 56.36 BMI 24.7 Subjective/Other Information Pt remains on vent support; still awaiting decision on guardianship for trach/PEG placement. Observed Promote infusing at 50ml/hr; RN informed of goal rate. BM x 1 on yesterday. Percent of energy/protein needs met: 75% energy 99% pro Burn Absent Trauma Absent #1 Nutrition Diagnosis Inadequate oral intake Diagnosis Progress(for reassessment Continues documentation) Is patient on ventilator? Yes Is Patient Ambulatory and/or Out of Bed No REE-([facility]-confined to bed) [phone] Calculation Used for Recommendations [facility] Additional Notes Pro needs 1.2-2g/k-126g/ day Fluid needs 1ml/kcal Nutrition Intervention Nutrition Support: Continue Promote to goal rate of 65ml/hr. Provide 50ml water flush q4h. Kcal 1,560 Protein (gm) 98 Carbohydrates (gm) 203 Fat (gm) 41 Fluid (mL) 1,309 Fiber (gm) 0 Goal #1 TF tolerance Goal #2 TF to meet 75%-100% energy and pro needs Goal #3 Wound healing Follow-Up By: 04/04/22 Additional Comments F/U: TF goal rate/tolerance
--- NOTE | 2022-04-02 12:27 | Progress Note ---
Assessment and Plan 61 y/o male with abnormal CT of chest. 04/02/22: Day 37 of intubation. Continue daily PSV trials. Courts agree with guardianship now awaiting on one to be appointed. 04/01/22: Day 36 of intubation. Continue Daily PSV. Per CM awaiting guardian appointment as courts have agreed to this. 03/31/22: Day 35 of intubation. CBC and chemistry is stable. Awaiting courts and hospital. 03/30/22: Day 34 of intubation. No labs today. Monitor fever as he had low grade temp early am. Rocephin finished yesterday. 03/29/22: Day 33 of intubation. WC now normal. No fever. Hard stop date on the abx. Awaiting Hospital and Court about guardianship. 03/28/22: Day 32 of intubation. WBC better. No fever. Still awaiting hospital and courts. 03/27/22: Day 31 of intubation. Given increase in WBC will treat empirically with Rocephin. Follow up urine cultures. CXR appears stable, await official read. Guarded prognosis. 03/26/22: Day 30 of Intubation. Daily PSV trials. no new recommendations. 03/25/22: Day 29 of intubation. RT to try PSV this am, hesistant given low sats but improved with suctioning. Still no word from the hospital in regards to guardianship. I do not feel comfortable with attempting extubation again on th is patient given his quick failure and difficult re-intubation. 03/24/22: Day 28 of intubation. reviewed my partners notes from the weekend. Glad patient is tolerating PSV however do not see conventional extubation in the near future given patient's mental status and how fast he failed extubation (within an hour) on his first attempt. Patient was also a difficult re- intubation. Follow up with CM and hospital tomorrow. Continue supportive measures. 03/21/22: Day 25 of intubation. No new updates from the hospital about guardianship. Wound care saw on yesterday. Continue daily PSV trials as tolerated. Guarded prognosis. 03/20/22: Day 24 of intubation. No new recommendations. Still awaiting hospital update in regards to guardianship so that decisions can be made. Continue supportive measures. Wound care to see today. 03/19/22: Day 23 of intubation. Prognosis is still guarded. Will discuss with RT about attempts at daily PSV trials. Per notes, Wound care to see , wound was present on admission. 03/18/22: Day 22 of intubation. Prognosis remains guarded. Not able to obtain trach and peg with consent. Continue daily PSV trials as tolerated. 03/17/22: Day 21 of intubation. Still awaiting some form of decision maker for trach and peg placement. Guarded prognosis. 03/16/22: Day 20 of intubation. BP stable. Continue midodrine. Awaiting emergency guardianship from Court to obtain consent for trach and peg. Guarded prognosis. 03/15/22: Day 19 of intubation. BP now is marginal more regularly. Will give an additional liter bolus of LR now. May need to increase Midodrine back to 5. Needs trach in order to be safely weaned from ventilator. Will need peg tube placement in addition to trach. Prognosis remains guarded. Continue PSV trials as tolerated. 03/14/22: Day 18 of intubation. Vitals stable and mental status is unchanged. Still in need of tracheostomy as well as peg tube placement. No guardian appointed yet. 03/13/22: Day 17 of intubation. Agree with bolus and restarting of midodrine. was stopped previously secondary to bradycardia. If patient spikes temp, will culture blood and urine and repeat CXR. Continue daily PSV trials to assess ability for vent liberation. Continues to need trach however no family/guardian to provide consent. Guarded prognosis. 03/12/22: Day 16 of intubation. Following up with hospital in regards to guardian. Continue supportive measures. Guarded prognosis. 03/11/22: hospital now attempting to find emergency guardian to have consent for trach as ethics committee cannot comment on this matter so unable to help. Until then will remain intubated orally. Failed PSV yesterday, will continue to attempt on daily basis. Unfortunate situation. Guarded prognosis. 03/10/22: Today nuñez day 14 of intubation. Given patient's mental state and increased risk of aspiration, the likelihood of conventional extubation with success is very very slim and the patient has already failed this in an extremely short period of time (less than 1 hour). I suspect that he will fail again if tried and could create more difficult reintubation as he was a difficult reintubation on his failed extubation attempt. To prevent further decline and potential complications of prolonged mechanical ventilation, will discuss with ethics and the hospital to use 2 physician consent to obtain trach and peg for this patient with hopes of liberating him from the mechanical ventilator. he has very minimal vent requirements but as been stated several times above, he continues to aspirate and failed conventional extubation almost immediately. Will consult surgery today. Dr. Mancia is prepared to sign consent as well as myself. Hopeful surgery will be on board with this. Continue supportive care for now. Attempt daily PSV trials. 03/07/22: Daily PSV trials as tolerated. Still no one to step up as adult friend. patient has now been intubated since 02/24/22 and is approaching the time period in which prolonged mechanical ventilation could lead to significant complications that could be detrimental to health (infection, stenosis, malacia etc). Will discuss again with ethics but in regards to medical necessity, may need to consider two physician consent if no one is able to claim responsibility for this patient. He is a full code and we must work in his best interest to prevent further harm. Continue supportive measures but he is not a candidate for conventional extubation given his mental state, despite being on minimal support. He has already failed this before. 03/06/22: PSV trials daily. Will discuss with RT. Spoke with ethics. Plan in place and awaiting on news from [facility] and [facility]. Continue supportive measures. Patient has been intubated since 02/24/22 and is approaching the 2 week shadi of intubation will need to make decisions soon to avoid unnecessary complications related to prolonged intubation. 03/05/22: Will follow up with ethics today. Awaiting some guidance about consent for trach and peg. This is a medical necessity to liberate patient from mechanical ventilation. Continue supportive measures. Ok with daily PSV trials 03/04/22: Follow up with ethics later this afternoon. Spoke with RT and patient does have cuff leak, will stop steroids. Stopping midodrine as BP is stable and bradycardia likely from this. 03/03/22: Await ethics eval. CM has spoken with state as well. Daily cuff leaks. Will start to wean steroids tomorrow. Midodrine can cause bradycardia. If continues or worsens will stop. Guarded prognosis. 03/02/22: Continue supportive measures. Await ethics consult before surgery consult for trach and peg. no further need for fluid boluses. Will continue stress dose steroids but have daily air leak checks by RT. Still will need trach, will not attempt extubation again. Guarded prognosis. 03/01/22: Patient is having increased urine output. This could be the cause of new onset hypotension. Will bolus 2 more liters of LR now and reassess. If this continues may need to work up for SIADH including repeat head CT. Follow up ethics review of case. Will need trach for ventilator liberation. Overall prognosis remains guarded. 02/28/22: Will obtain CT neck, noncontrast to look for airway edema or other possible etiologies for failure. Needs ethics consult as given patient's mental state, inability to clear secretions appropriately, will need trach now that he has failed extubation. However he has no family and no POA so no one to give consent. Continue supportive measures. Guarded prognosis. 02/27/22: Continue improvement of oxygenation. Will drop PEEP down today with goal of being at 6 by in the morning. Will repeat CT scan to confirm improvement as no endobronchial lesion was seen, but also to make sure no parenchymal mass. There was no evidence of extrinsic compression during bronch. Likely extubation tomorrow post CT. 02/26/22: Repeat CXR now. Wean Vent as tolerated. Hopeful extubation soon. Mucous removed. NO ENDOBRONCHIAL LESION/MASS 02/25/22: Bronch tentatively planned for tomorrow with therapeutic scope. Awaiting GI lab to give a time. NPO after midnight. Continue high PEEP 02/24/22: WIll attempt to bronch tomorrow morning. NPO after midnight. Just received word from GI lab they are not able to do bronch tomorrow. Cancel NPO order. Continue to feed patient. Repeat ABG in AM along with CXR. 02/21/22: No new pulm recs for today. Please obtain repeat CXR likely on Thursday. If patient happens to get worse, likely not a candidate for bipap given his weak cough and mental state and inability to communicate. If worsens and requires intubation, will bronch then under emergent circumstances if no POA or family is able to be located. Continue CPT. Will discuss with RT about NT suctioning. 02/20/22: Saw speech while on the floor. Would like patient to be NPO now. Discussed with nurse on floor and with IMS. Same recs pulm way as yesterday. Would benefit from bronch if able to get consent as this is not emergent. Continue CPT and q shift NT suctioning. Reviewed admission in the past and of note, patient was recently admitted last month and had a CXR done on the 29 of January that was normal. Given this patient's medical history and the history that I obtained from the nursing staff that at the [facility] he was eating solid foods, I suspect that this is aspiration, possibly of a foreign body (most likely food) with atelectasis of the right lower lobe. It is highly unlikely that a mass evolved in size in less than a months time and patient, besides age, has no real risk factors for lung carcinoma. Discussed with the nurse and unfortunately there is no identifiable person that is able to give consent. Bronchoscopy is needed in the case to evaluate to see if lung mass is there vs foreign body, but at this time not able to do. In the meanwhile will recommend the following. 1. Will order CPT with neb therapy 3x daily 2. Suggest maybe NT suctioning q shift. May use nasal trumpet, however do not leave this device in the patient 3. Aspiration precautions 4. Consider speech eval to assess swallowing. Will continue to follow. CCT 31 minutes. Subjective Date of service: 04/02/22 Principal diagnosis: f/u Acute respiratory failure Interval history: No acute events. Failed PSV this am. Objective Vital Signs - 12hr 04/02/22 04/02/22 04/02/22 01:00 02:00 03:00 Temperature Pulse Rate 76 75 83 Pulse Rate [ Anterior Bilateral Throughout] Respiratory 17 16 19 Rate Respiratory Rate [Anterior Bilateral Throughout] Blood Pressure 108/58 108/60 122/75 O2 Sat by Pulse 98 95 94 Oximetry 04/02/22 04/02/22 04/02/22 03:16 04:00 05:00 Temperature 97.8 F Pulse Rate 81 77 76 Pulse Rate [ 80 Anterior Bilateral Throughout] Respiratory 15 14 Rate Respiratory 15 Rate [Anterior Bilateral Throughout] Blood Pressure 118/70 106/64 O2 Sat by Pulse 100 98 96 Oximetry 04/02/22 04/02/22 04/02/22 06:00 07:00 07:34 Temperature Pulse Rate 82 85 82 Pulse Rate [ Anterior Bilateral Throughout] Respiratory 17 18 Rate Respiratory Rate [Anterior Bilateral Throughout] Blood Pressure 109/62 113/65 113/65 O2 Sat by Pulse 96 97 98 Oximetry 04/02/22 04/02/22 04/02/22 07:35 08:00 08:05 Temperature 97.8 F Pulse Rate 76 Pulse Rate [ 84 Anterior Bilateral Throughout] Respiratory 15 Rate Respiratory 17 Rate [Anterior Bilateral Throughout] Blood Pressure 120/69 O2 Sat by Pulse 99 100 Oximetry 04/02/22 04/02/22 04/02/22 08:26 08:50 09:00 Temperature Pulse Rate 87 85 Pulse Rate [ Anterior Bilateral Throughout] Respiratory 12 16 Rate Respiratory Rate [Anterior Bilateral Throughout] Blood Pressure 120/69 120/69 O2 Sat by Pulse 86 98 95 Oximetry 04/02/22 04/02/22 10:00 11:17 Temperature Pulse Rate 73 73 Pulse Rate [ Anterior Bilateral Throughout] Respiratory 14 Rate Respiratory Rate [Anterior Bilateral Throughout] Blood Pressure 110/65 113/60 O2 Sat by Pulse 97 99 Oximetry Constitutional: alert, other (critically ill on ventilator) Eyes: non-icteric ENT: oropharynx moist Neck: supple Effort: normal Ascultation: Bilateral: diminished breath sounds, rhonchi Cardiovascular: regular rate and rhythm (no mrg) Gastrointestinal: normoactive bowel sounds, soft, non-tender (on o2 vest in place), non-distended Integumentary: normal Extremities: no cyanosis, no edema Neurologic: other (awake) Psychiatric: other (unable to assess) CBC and BMP: 03/31/22 03:56 03/31/22 03:56 ABG, PT/INR, D-dimer: ABG ABG pH 7.392 pH Units (7.350-7.450) 03/22/22 14:25 ABG pCO2 54.4 mm Hg 03/22/22 14:25 ABG pO2 150.5 mm Hg (80.0-90.0) H 03/22/22 14:25 ABG O2 Saturation 98.8 % (95.0-99.0) 03/22/22 14:25 PT/INR, D-dimer PT 16.2 Sec. (12.2-14.9) H 03/11/22 04:02 INR 1.16 (0.87-1.13) H 03/11/22 04:02 Abnormal lab findings: Abnormal Labs 02/18/22 02/18/22 02/18/22 19:34 21:02 21:02 WBC RBC Hgb Hct MCV 101 H MCH 34 H MCHC RDW 16.1 H Lymph % (Auto) [place] % (Auto) 12.4 H Lymph # (Auto) [place] # (Auto) 1.2 H Seg Neutrophils % 73.0 H Seg Neuts % (Manual) Lymphocytes % (Manual) Seg Neutrophils # Seg Neutrophils # Man Lymphocytes # (Manual) PT 16.9 H INR 1.20 H ABG pH ABG pO2 ABG HCO3 ABG O2 Saturation ABG Base Excess ABG Hemoglobin Oxyhemoglobin Sodium Potassium Chloride Carbon Dioxide BUN Creatinine Glucose POC Glucose 116 H Calcium Phosphorus AST ALT Ammonia Albumin Urine WBC (Auto) 02/18/22 02/18/22 02/18/22 21:02 22:45 23:22 WBC RBC Hgb Hct MCV MCH MCHC RDW Lymph % (Auto) [place] % (Auto) Lymph # (Auto) [place] # (Auto) Seg Neutrophils % Seg Neuts % (Manual) Lymphocytes % (Manual) Seg Neutrophils # Seg Neutrophils # Man Lymphocytes # (Manual) PT INR ABG pH ABG pO2 55.6 L ABG HCO3 28.4 H ABG O2 Saturation 91.5 L ABG Base Excess 3.8 H ABG Hemoglobin 13.2 L Oxyhemoglobin 89.6 L Sodium Potassium 5.1 H Chloride Carbon Dioxide BUN Creatinine Glucose 102 H POC Glucose Calcium Phosphorus AST 48 H ALT 64 H Ammonia 14.0 L Albumin 2.7 L Urine WBC (Auto) 02/20/22 02/20/22 02/23/22 04:59 04:59 06:29 WBC 11.4 H RBC Hgb Hct MCV 103 H MCH 33 H MCHC RDW 16.5 H Lymph % (Auto) 5.5 L [place] % (Auto) 12.1 H Lymph # (Auto) 0.6 L [place] # (Auto) 1.4 H Seg Neutrophils % 81.4 H Seg Neuts % (Manual) Lymphocytes % (Manual) Seg Neutrophils # 9.2 H Seg Neutrophils # Man Lymphocytes # (Manual) PT INR ABG pH ABG pO2 ABG HCO3 ABG O2 Saturation ABG Base Excess ABG Hemoglobin Oxyhemoglobin Sodium Potassium Chloride Carbon Dioxide BUN Creatinine Glucose POC Glucose 113 H Calcium 8.2 L Phosphorus AST ALT Ammonia Albumin Urine WBC (Auto) 02/23/22 02/23/22 02/24/22 11:22 16:10 00:02 WBC RBC Hgb Hct MCV MCH MCHC RDW Lymph % (Auto) [place] % (Auto) Lymph # (Auto) [place] # (Auto) Seg Neutrophils % Seg Neuts % (Manual) Lymphocytes % (Manual) Seg Neutrophils # Seg Neutrophils # Man Lymphocytes # (Manual) PT INR ABG pH ABG pO2 ABG HCO3 ABG O2 Saturation ABG Base Excess ABG Hemoglobin Oxyhemoglobin Sodium Potassium Chloride Carbon Dioxide BUN Creatinine Glucose POC Glucose 108 H 115 H 109 H Calcium Phosphorus AST ALT Ammonia Albumin Urine WBC (Auto) 02/24/22 02/24/22 02/24/22 11:05 11:05 13:20 WBC RBC 3.55 L Hgb Hct MCV 100 H MCH 34 H MCHC RDW 15.6 H Lymph % (Auto) [place] % (Auto) Lymph # (Auto) [place] # (Auto) Seg Neutrophils % Seg Neuts % (Manual) Lymphocytes % (Manual) Seg Neutrophils # Seg Neutrophils # Man Lymphocytes # (Manual) PT INR ABG pH ABG pO2 ABG HCO3 ABG O2 Saturation ABG Base Excess ABG Hemoglobin Oxyhemoglobin Sodium 146 H Potassium 3.2 L D Chloride 108.4 H Carbon Dioxide BUN Creatinine 0.5 L Glucose POC Glucose 111 H Calcium 7.9 L Phosphorus 2.20 L AST ALT Ammonia Albumin Urine WBC (Auto) 02/24/22 02/24/22 02/24/22 16:30 17:03 20:25 WBC RBC Hgb Hct MCV MCH MCHC RDW Lymph % (Auto) [place] % (Auto) Lymph # (Auto) [place] # (Auto) Seg Neutrophils % Seg Neuts % (Manual) Lymphocytes % (Manual) Seg Neutrophils # Seg Neutrophils # Man Lymphocytes # (Manual) PT INR ABG pH 7.319 L ABG pO2 65.3 L ABG HCO3 31.3 H ABG O2 Saturation 92.2 L ABG Base Excess 3.8 H ABG Hemoglobin 12.0 L Oxyhemoglobin 90.3 L Sodium Potassium Chloride 107.9 H Carbon Dioxide BUN 8 L Creatinine 0.4 L Glucose POC Glucose 108 H Calcium 7.6 L Phosphorus 4.60 H D AST ALT Ammonia Albumin Urine WBC (Auto) 02/25/22 02/25/22 02/25/22 04:12 04:12 05:05 WBC RBC 3.07 L Hgb 10.2 L Hct 31.5 L MCV 103 H MCH 33 H MCHC RDW 15.6 H Lymph % (Auto) [place] % (Auto) Lymph # (Auto) [place] # (Auto) Seg Neutrophils % Seg Neuts % (Manual) Lymphocytes % (Manual) Seg Neutrophils # Seg Neutrophils # Man Lymphocytes # (Manual) PT INR ABG pH ABG pO2 ABG HCO3 32.5 H ABG O2 Saturation ABG Base Excess 5.6 H ABG Hemoglobin 10.8 L Oxyhemoglobin 94.8 L Sodium Potassium 3.5 L Chloride 107.7 H Carbon Dioxide BUN Creatinine 0.5 L Glucose POC Glucose Calcium 7.0 L Phosphorus AST ALT Ammonia Albumin Urine WBC (Auto) 02/25/22 02/25/22 02/26/22 12:05 18:33 00:07 WBC RBC Hgb Hct MCV MCH MCHC RDW Lymph % (Auto) [place] % (Auto) Lymph # (Auto) [place] # (Auto) Seg Neutrophils % Seg Neuts % (Manual) Lymphocytes % (Manual) Seg Neutrophils # Seg Neutrophils # Man Lymphocytes # (Manual) PT INR ABG pH ABG pO2 ABG HCO3 ABG O2 Saturation ABG Base Excess ABG Hemoglobin Oxyhemoglobin Sodium Potassium Chloride Carbon Dioxide BUN Creatinine Glucose POC Glucose 127 H 125 H 114 H Calcium Phosphorus AST ALT Ammonia Albumin Urine WBC (Auto) 02/26/22 02/26/22 02/26/22 03:30 04:42 11:34 WBC RBC Hgb Hct MCV MCH MCHC RDW Lymph % (Auto) [place] % (Auto) Lymph # (Auto) [place] # (Auto) Seg Neutrophils % Seg Neuts % (Manual) Lymphocytes % (Manual) Seg Neutrophils # Seg Neutrophils # Man Lymphocytes # (Manual) PT INR ABG pH ABG pO2 143.2 H ABG HCO3 33.2 H ABG O2 Saturation ABG Base Excess 6.5 H ABG Hemoglobin 9.4 L Oxyhemoglobin Sodium Potassium Chloride Carbon Dioxide 32 H BUN Creatinine 0.7 L Glucose POC Glucose 114 H Calcium 8.0 L Phosphorus AST ALT Ammonia Albumin Urine WBC (Auto) 02/26/22 02/26/22 02/27/22 18:17 23:37 04:19 WBC 13.7 H RBC 2.78 L Hgb 9.3 L Hct 28.5 L MCV 103 H MCH 33 H MCHC RDW 16.3 H Lymph % (Auto) [place] % (Auto) Lymph # (Auto) [place] # (Auto) Seg Neutrophils % Seg Neuts % (Manual) Lymphocytes % (Manual) Seg Neutrophils # Seg Neutrophils # Man Lymphocytes # (Manual) PT INR ABG pH ABG pO2 ABG HCO3 ABG O2 Saturation ABG Base Excess ABG Hemoglobin Oxyhemoglobin Sodium Potassium Chloride Carbon Dioxide BUN Creatinine Glucose POC Glucose 111 H 117 H Calcium Phosphorus AST ALT Ammonia Albumin Urine WBC (Auto) 02/27/22 02/27/22 02/27/22 04:19 04:35 05:27 WBC RBC Hgb Hct MCV MCH MCHC RDW Lymph % (Auto) [place] % (Auto) Lymph # (Auto) [place] # (Auto) Seg Neutrophils % Seg Neuts % (Manual) Lymphocytes % (Manual) Seg Neutrophils # Seg Neutrophils # Man Lymphocytes # (Manual) PT INR ABG pH ABG pO2 96.3 H ABG HCO3 34.9 H ABG O2 Saturation ABG Base Excess 8.1 H ABG Hemoglobin Oxyhemoglobin Sodium Potassium Chloride Carbon Dioxide 31 H BUN Creatinine 0.6 L Glucose 107 H POC Glucose 133 H Calcium 7.8 L Phosphorus AST ALT Ammonia Albumin Urine WBC (Auto) 02/27/22 02/27/22 02/28/22 11:15 23:35 03:38 WBC 13.3 H RBC 3.05 L Hgb 10.2 L Hct 30.7 L MCV 101 H MCH 33 H MCHC RDW 16.1 H Lymph % (Auto) [place] % (Auto) Lymph # (Auto) [place] # (Auto) Seg Neutrophils % Seg Neuts % (Manual) Lymphocytes % (Manual) Seg Neutrophils # Seg Neutrophils # Man Lymphocytes # (Manual) PT INR ABG pH ABG pO2 ABG HCO3 ABG O2 Saturation ABG Base Excess ABG Hemoglobin Oxyhemoglobin Sodium Potassium Chloride Carbon Dioxide BUN Creatinine Glucose POC Glucose 129 H 122 H Calcium Phosphorus AST ALT Ammonia Albumin Urine WBC (Auto) 02/28/22 02/28/22 02/28/22 04:50 05:30 09:30 WBC RBC Hgb Hct MCV MCH MCHC RDW Lymph % (Auto) [place] % (Auto) Lymph # (Auto) [place] # (Auto) Seg Neutrophils % Seg Neuts % (Manual) Lymphocytes % (Manual) Seg Neutrophils # Seg Neutrophils # Man Lymphocytes # (Manual) PT INR ABG pH 7.451 H 7.488 H ABG pO2 77.0 L ABG HCO3 37.1 H 34.6 H ABG O2 Saturation ABG Base Excess 11.5 H 10.1 H ABG Hemoglobin 10.1 L 10.0 L Oxyhemoglobin Sodium Potassium Chloride Carbon Dioxide BUN Creatinine Glucose POC Glucose 121 H Calcium Phosphorus AST ALT Ammonia Albumin Urine WBC (Auto) 02/28/22 02/28/22 03/01/22 11:36 23:07 04:27 WBC 12.5 H RBC 2.85 L Hgb 9.5 L Hct 28.6 L MCV 101 H MCH 33 H MCHC RDW 15.7 H Lymph % (Auto) [place] % (Auto) Lymph # (Auto) [place] # (Auto) Seg Neutrophils % Seg Neuts % (Manual) Lymphocytes % (Manual) Seg Neutrophils # Seg Neutrophils # Man Lymphocytes # (Manual) PT INR ABG pH ABG pO2 ABG HCO3 ABG O2 Saturation ABG Base Excess ABG Hemoglobin Oxyhemoglobin Sodium Potassium Chloride Carbon Dioxide BUN Creatinine Glucose POC Glucose 112 H 107 H Calcium Phosphorus AST ALT Ammonia Albumin Urine WBC (Auto) 03/01/22 03/01/22 03/01/22 04:27 05:05 11:29 WBC RBC Hgb Hct MCV MCH MCHC RDW Lymph % (Auto) [place] % (Auto) Lymph # (Auto) [place] # (Auto) Seg Neutrophils % Seg Neuts % (Manual) Lymphocytes % (Manual) Seg Neutrophils # Seg Neutrophils # Man Lymphocytes # (Manual) PT INR ABG pH ABG pO2 ABG HCO3 ABG O2 Saturation ABG Base Excess ABG Hemoglobin Oxyhemoglobin Sodium 147 H D Potassium Chloride Carbon Dioxide 34 H BUN Creatinine 0.6 L Glucose 128 H POC Glucose 119 H 121 H Calcium 7.9 L Phosphorus AST ALT Ammonia Albumin Urine WBC (Auto) 03/01/22 03/01/22 03/02/22 16:15 23:57 05:18 WBC RBC Hgb Hct MCV MCH MCHC RDW Lymph % (Auto) [place] % (Auto) Lymph # (Auto) [place] # (Auto) Seg Neutrophils % Seg Neuts % (Manual) Lymphocytes % (Manual) Seg Neutrophils # Seg Neutrophils # Man Lymphocytes # (Manual) PT INR ABG pH ABG pO2 110.5 H ABG HCO3 33.0 H ABG O2 Saturation ABG Base Excess 7.4 H ABG Hemoglobin 8.6 L Oxyhemoglobin Sodium Potassium Chloride Carbon Dioxide BUN Creatinine Glucose POC Glucose 134 H 140 H Calcium Phosphorus AST ALT Ammonia Albumin Urine WBC (Auto) 03/02/22 03/02/22 03/02/22 05:53 09:04 09:04 WBC 15.0 H RBC 3.00 L Hgb 9.7 L Hct 30.7 L MCV 102 H MCH MCHC RDW 16.6 H Lymph % (Auto) [place] % (Auto) Lymph # (Auto) [place] # (Auto) Seg Neutrophils % Seg Neuts % (Manual) Lymphocytes % (Manual) Seg Neutrophils # Seg Neutrophils # Man Lymphocytes # (Manual) PT INR ABG pH ABG pO2 ABG HCO3 ABG O2 Saturation ABG Base Excess ABG Hemoglobin Oxyhemoglobin Sodium Potassium Chloride Carbon Dioxide 31 H BUN Creatinine 0.6 L Glucose 157 H POC Glucose 158 H Calcium 7.9 L Phosphorus AST ALT Ammonia Albumin Urine WBC (Auto) 03/02/22 03/02/22 03/02/22 11:36 16:25 23:17 WBC RBC Hgb Hct MCV MCH MCHC RDW Lymph % (Auto) [place] % (Auto) Lymph # (Auto) [place] # (Auto) Seg Neutrophils % Seg Neuts % (Manual) Lymphocytes % (Manual) Seg Neutrophils # Seg Neutrophils # Man Lymphocytes # (Manual) PT INR ABG pH ABG pO2 ABG HCO3 ABG O2 Saturation ABG Base Excess ABG Hemoglobin Oxyhemoglobin Sodium Potassium Chloride Carbon Dioxide BUN Creatinine Glucose POC Glucose 160 H 132 H 157 H Calcium Phosphorus AST ALT Ammonia Albumin Urine WBC (Auto) 03/03/22 03/03/22 03/03/22 03:54 03:54 05:27 WBC 19.5 H RBC 2.79 L Hgb 9.0 L Hct 28.6 L MCV 102 H MCH MCHC RDW 16.2 H Lymph % (Auto) [place] % (Auto) Lymph # (Auto) [place] # (Auto) Seg Neutrophils % Seg Neuts % (Manual) 95.0 H Lymphocytes % (Manual) 3.0 L Seg Neutrophils # Seg Neutrophils # Man 18.5 H Lymphocytes # (Manual) 0.6 L PT INR ABG pH ABG pO2 ABG HCO3 ABG O2 Saturation ABG Base Excess ABG Hemoglobin Oxyhemoglobin Sodium Potassium Chloride Carbon Dioxide BUN Creatinine 0.6 L Glucose 130 H POC Glucose 149 H Calcium 8.1 L Phosphorus AST ALT Ammonia Albumin Urine WBC (Auto) 03/03/22 03/03/22 03/04/22 11:13 17:30 00:02 WBC RBC Hgb Hct MCV MCH MCHC RDW Lymph % (Auto) [place] % (Auto) Lymph # (Auto) [place] # (Auto) Seg Neutrophils % Seg Neuts % (Manual) Lymphocytes % (Manual) Seg Neutrophils # Seg Neutrophils # Man Lymphocytes # (Manual) PT INR ABG pH ABG pO2 ABG HCO3 ABG O2 Saturation ABG Base Excess ABG Hemoglobin Oxyhemoglobin Sodium Potassium Chloride Carbon Dioxide BUN Creatinine Glucose POC Glucose 139 H 138 H 157 H Calcium Phosphorus AST ALT Ammonia Albumin Urine WBC (Auto) 03/04/22 03/04/22 03/04/22 05:32 05:32 05:48 WBC 16.1 H RBC 2.81 L Hgb 9.3 L Hct 28.8 L MCV 102 H MCH 33 H MCHC RDW 16.7 H Lymph % (Auto) [place] % (Auto) Lymph # (Auto) [place] # (Auto) Seg Neutrophils % Seg Neuts % (Manual) Lymphocytes % (Manual) Seg Neutrophils # Seg Neutrophils # Man Lymphocytes # (Manual) PT INR ABG pH ABG pO2 ABG HCO3 ABG O2 Saturation ABG Base Excess ABG Hemoglobin Oxyhemoglobin Sodium Potassium Chloride Carbon Dioxide BUN Creatinine 0.7 L Glucose 135 H POC Glucose 145 H Calcium 8.3 L Phosphorus AST ALT Ammonia Albumin Urine WBC (Auto) 03/04/22 03/04/22 03/05/22 11:34 16:29 00:28 WBC RBC Hgb Hct MCV MCH MCHC RDW Lymph % (Auto) [place] % (Auto) Lymph # (Auto) [place] # (Auto) Seg Neutrophils % Seg Neuts % (Manual) Lymphocytes % (Manual) Seg Neutrophils # Seg Neutrophils # Man Lymphocytes # (Manual) PT INR ABG pH ABG pO2 ABG HCO3 ABG O2 Saturation ABG Base Excess ABG Hemoglobin Oxyhemoglobin Sodium Potassium Chloride Carbon Dioxide BUN Creatinine Glucose POC Glucose 148 H 140 H 116 H Calcium Phosphorus AST ALT Ammonia Albumin Urine WBC (Auto) 03/05/22 03/05/22 03/05/22 06:29 11:30 17:38 WBC RBC Hgb Hct MCV MCH MCHC RDW Lymph % (Auto) [place] % (Auto) Lymph # (Auto) [place] # (Auto) Seg Neutrophils % Seg Neuts % (Manual) Lymphocytes % (Manual) Seg Neutrophils # Seg Neutrophils # Man Lymphocytes # (Manual) PT INR ABG pH ABG pO2 ABG HCO3 ABG O2 Saturation ABG Base Excess ABG Hemoglobin Oxyhemoglobin Sodium Potassium Chloride Carbon Dioxide BUN Creatinine Glucose POC Glucose 114 H 114 H 117 H Calcium Phosphorus AST ALT Ammonia Albumin Urine WBC (Auto) 03/06/22 03/06/22 03/06/22 04:17 04:17 06:06 WBC 13.4 H RBC 2.85 L Hgb 9.4 L Hct 29.0 L MCV 102 H MCH 33 H MCHC RDW 16.4 H Lymph % (Auto) [place] % (Auto) Lymph # (Auto) [place] # (Auto) Seg Neutrophils % Seg Neuts % (Manual) Lymphocytes % (Manual) Seg Neutrophils # Seg Neutrophils # Man Lymphocytes # (Manual) PT INR ABG pH ABG pO2 ABG HCO3 ABG O2 Saturation ABG Base Excess ABG Hemoglobin Oxyhemoglobin Sodium Potassium 3.5 L Chloride Carbon Dioxide 31 H BUN Creatinine 0.6 L Glucose 101 H POC Glucose 106 H Calcium 7.7 L Phosphorus 2.00 L AST ALT Ammonia Albumin Urine WBC (Auto) 03/06/22 03/06/22 03/07/22 18:04 23:50 05:14 WBC RBC Hgb Hct MCV MCH MCHC RDW Lymph % (Auto) [place] % (Auto) Lymph # (Auto) [place] # (Auto) Seg Neutrophils % Seg Neuts % (Manual) Lymphocytes % (Manual) Seg Neutrophils # Seg Neutrophils # Man Lymphocytes # (Manual) PT INR ABG pH ABG pO2 ABG HCO3 ABG O2 Saturation ABG Base Excess ABG Hemoglobin Oxyhemoglobin Sodium Potassium Chloride Carbon Dioxide BUN Creatinine Glucose POC Glucose 108 H 115 H 116 H Calcium Phosphorus AST ALT Ammonia Albumin Urine WBC (Auto) 03/07/22 03/07/22 03/08/22 11:42 18:13 04:34 WBC RBC 2.86 L Hgb 9.2 L Hct 29.3 L MCV 103 H MCH MCHC 31 L RDW 16.9 H Lymph % (Auto) [place] % (Auto) Lymph # (Auto) [place] # (Auto) Seg Neutrophils % Seg Neuts % (Manual) Lymphocytes % (Manual) Seg Neutrophils # Seg Neutrophils # Man Lymphocytes # (Manual) PT INR ABG pH ABG pO2 ABG HCO3 ABG O2 Saturation ABG Base Excess ABG Hemoglobin Oxyhemoglobin Sodium Potassium Chloride Carbon Dioxide BUN Creatinine Glucose POC Glucose 123 H 109 H Calcium Phosphorus AST ALT Ammonia Albumin Urine WBC (Auto) 03/08/22 03/08/22 03/08/22 04:34 11:29 16:34 WBC RBC Hgb Hct MCV MCH MCHC RDW Lymph % (Auto) [place] % (Auto) Lymph # (Auto) [place] # (Auto) Seg Neutrophils % Seg Neuts % (Manual) Lymphocytes % (Manual) Seg Neutrophils # Seg Neutrophils # Man Lymphocytes # (Manual) PT INR ABG pH ABG pO2 ABG HCO3 ABG O2 Saturation ABG Base Excess ABG Hemoglobin Oxyhemoglobin Sodium Potassium Chloride Carbon Dioxide 33 H BUN Creatinine 0.5 L Glucose 109 H POC Glucose 117 H 109 H Calcium 7.6 L Phosphorus AST ALT Ammonia Albumin Urine WBC (Auto) 03/08/22 03/09/22 03/10/22 23:56 11:15 03:57 WBC RBC 2.99 L Hgb 9.9 L Hct 30.3 L MCV 102 H MCH 33 H MCHC RDW 16.8 H Lymph % (Auto) 13.3 L [place] % (Auto) 12.5 H Lymph # (Auto) [place] # (Auto) 1.3 H Seg Neutrophils % 72.4 H Seg Neuts % (Manual) Lymphocytes % (Manual) Seg Neutrophils # Seg Neutrophils # Man Lymphocytes # (Manual) PT INR ABG pH ABG pO2 ABG HCO3 ABG O2 Saturation ABG Base Excess ABG Hemoglobin Oxyhemoglobin Sodium Potassium Chloride Carbon Dioxide BUN Creatinine Glucose POC Glucose 106 H 110 H Calcium Phosphorus AST ALT Ammonia Albumin Urine WBC (Auto) 03/10/22 03/10/22 03/10/22 03:57 04:50 16:04 WBC RBC Hgb Hct MCV MCH MCHC RDW Lymph % (Auto) [place] % (Auto) Lymph # (Auto) [place] # (Auto) Seg Neutrophils % Seg Neuts % (Manual) Lymphocytes % (Manual) Seg Neutrophils # Seg Neutrophils # Man Lymphocytes # (Manual) PT INR ABG pH 7.465 H ABG pO2 ABG HCO3 31.9 H ABG O2 Saturation ABG Base Excess 7.3 H ABG Hemoglobin 11.0 L Oxyhemoglobin Sodium Potassium 3.4 L Chloride Carbon Dioxide BUN Creatinine 0.6 L Glucose POC Glucose 115 H Calcium 8.1 L Phosphorus AST ALT Ammonia Albumin 1.9 L Urine WBC (Auto) 03/11/22 03/11/22 03/11/22 04:02 04:02 04:02 WBC 12.0 H RBC 2.81 L Hgb 9.2 L Hct 29.1 L MCV 103 H MCH 33 H MCHC RDW 17.5 H Lymph % (Auto) [place] % (Auto) Lymph # (Auto) [place] # (Auto) Seg Neutrophils % Seg Neuts % (Manual) Lymphocytes % (Manual) Seg Neutrophils # Seg Neutrophils # Man Lymphocytes # (Manual) PT 16.2 H INR 1.16 H ABG pH ABG pO2 ABG HCO3 ABG O2 Saturation ABG Base Excess ABG Hemoglobin Oxyhemoglobin Sodium Potassium Chloride Carbon Dioxide BUN Creatinine 0.5 L Glucose 104 H POC Glucose Calcium 7.9 L Phosphorus AST ALT Ammonia Albumin Urine WBC (Auto) 03/11/22 03/11/22 03/11/22 05:10 11:07 16:32 WBC RBC Hgb Hct MCV MCH MCHC RDW Lymph % (Auto) [place] % (Auto) Lymph # (Auto) [place] # (Auto) Seg Neutrophils % Seg Neuts % (Manual) Lymphocytes % (Manual) Seg Neutrophils # Seg Neutrophils # Man Lymphocytes # (Manual) PT INR ABG pH 7.476 H ABG pO2 ABG HCO3 29.7 H ABG O2 Saturation ABG Base Excess 5.7 H ABG Hemoglobin 9.1 L Oxyhemoglobin Sodium Potassium Chloride Carbon Dioxide BUN Creatinine Glucose POC Glucose 108 H 121 H Calcium Phosphorus AST ALT Ammonia Albumin Urine WBC (Auto) 03/12/22 03/13/22 03/13/22 05:51 06:08 12:02 WBC RBC 2.73 L Hgb 9.0 L Hct 27.5 L MCV 101 H MCH 33 H MCHC RDW 17.2 H Lymph % (Auto) [place] % (Auto) Lymph # (Auto) [place] # (Auto) Seg Neutrophils % Seg Neuts % (Manual) Lymphocytes % (Manual) Seg Neutrophils # Seg Neutrophils # Man Lymphocytes # (Manual) PT INR ABG pH ABG pO2 ABG HCO3 ABG O2 Saturation ABG Base Excess ABG Hemoglobin Oxyhemoglobin Sodium Potassium Chloride Carbon Dioxide BUN Creatinine Glucose POC Glucose 116 H 111 H Calcium Phosphorus AST ALT Ammonia Albumin Urine WBC (Auto) 03/13/22 03/13/22 03/14/22 12:48 18:17 03:58 WBC RBC 2.97 L Hgb 9.7 L Hct 30.0 L MCV 101 H MCH 33 H MCHC RDW 16.7 H Lymph % (Auto) [place] % (Auto) Lymph # (Auto) [place] # (Auto) Seg Neutrophils % Seg Neuts % (Manual) Lymphocytes % (Manual) Seg Neutrophils # Seg Neutrophils # Man Lymphocytes # (Manual) PT INR ABG pH ABG pO2 ABG HCO3 ABG O2 Saturation ABG Base Excess ABG Hemoglobin Oxyhemoglobin Sodium Potassium Chloride Carbon Dioxide BUN Creatinine Glucose POC Glucose 125 H 114 H Calcium Phosphorus AST ALT Ammonia Albumin Urine WBC (Auto) 03/14/22 03/14/22 03/14/22 03:58 13:01 16:41 WBC RBC Hgb Hct MCV MCH MCHC RDW Lymph % (Auto) [place] % (Auto) Lymph # (Auto) [place] # (Auto) Seg Neutrophils % Seg Neuts % (Manual) Lymphocytes % (Manual) Seg Neutrophils # Seg Neutrophils # Man Lymphocytes # (Manual) PT INR ABG pH ABG pO2 ABG HCO3 ABG O2 Saturation ABG Base Excess ABG Hemoglobin Oxyhemoglobin Sodium Potassium Chloride Carbon Dioxide BUN Creatinine 0.6 L Glucose POC Glucose 118 H 109 H Calcium 8.2 L Phosphorus AST ALT Ammonia Albumin Urine WBC (Auto) 03/16/22 03/16/22 03/17/22 05:28 05:28 23:19 WBC RBC 2.81 L Hgb 9.1 L Hct 27.8 L MCV 99 H MCH MCHC RDW 17.0 H Lymph % (Auto) [place] % (Auto) Lymph # (Auto) [place] # (Auto) Seg Neutrophils % Seg Neuts % (Manual) Lymphocytes % (Manual) Seg Neutrophils # Seg Neutrophils # Man Lymphocytes # (Manual) PT INR ABG pH ABG pO2 ABG HCO3 ABG O2 Saturation ABG Base Excess ABG Hemoglobin Oxyhemoglobin Sodium Potassium Chloride Carbon Dioxide BUN Creatinine 0.5 L Glucose POC Glucose 113 H Calcium 8.2 L Phosphorus AST ALT Ammonia Albumin Urine WBC (Auto) 03/20/22 03/20/22 03/20/22 04:09 04:09 17:22 WBC RBC 2.90 L Hgb 9.6 L Hct 28.9 L MCV 100 H MCH 33 H MCHC RDW 17.4 H Lymph % (Auto) [place] % (Auto) Lymph # (Auto) [place] # (Auto) Seg Neutrophils % Seg Neuts % (Manual) Lymphocytes % (Manual) Seg Neutrophils # Seg Neutrophils # Man Lymphocytes # (Manual) PT INR ABG pH ABG pO2 ABG HCO3 ABG O2 Saturation ABG Base Excess ABG Hemoglobin Oxyhemoglobin Sodium Potassium Chloride Carbon Dioxide BUN Creatinine 0.6 L Glucose POC Glucose 110 H Calcium 8.2 L Phosphorus AST ALT Ammonia Albumin Urine WBC (Auto) 03/21/22 03/21/22 03/22/22 18:24 23:09 12:18 WBC RBC Hgb Hct MCV MCH MCHC RDW Lymph % (Auto) [place] % (Auto) Lymph # (Auto) [place] # (Auto) Seg Neutrophils % Seg Neuts % (Manual) Lymphocytes % (Manual) Seg Neutrophils # Seg Neutrophils # Man Lymphocytes # (Manual) PT INR ABG pH ABG pO2 ABG HCO3 ABG O2 Saturation ABG Base Excess ABG Hemoglobin Oxyhemoglobin Sodium Potassium Chloride Carbon Dioxide BUN Creatinine Glucose POC Glucose 110 H 107 H 106 H Calcium Phosphorus AST ALT Ammonia Albumin Urine WBC (Auto) 03/22/22 03/23/22 03/23/22 14:25 00:21 11:31 WBC RBC Hgb Hct MCV MCH MCHC RDW Lymph % (Auto) [place] % (Auto) Lymph # (Auto) [place] # (Auto) Seg Neutrophils % Seg Neuts % (Manual) Lymphocytes % (Manual) Seg Neutrophils # Seg Neutrophils # Man Lymphocytes # (Manual) PT INR ABG pH ABG pO2 150.5 H ABG HCO3 32.4 H ABG O2 Saturation ABG Base Excess 6.2 H ABG Hemoglobin 11.4 L Oxyhemoglobin Sodium Potassium Chloride Carbon Dioxide BUN Creatinine Glucose POC Glucose 107 H 110 H Calcium Phosphorus AST ALT Ammonia Albumin Urine WBC (Auto) 03/24/22 03/24/22 03/24/22 03:47 03:47 05:56 WBC RBC 3.18 L Hgb 10.1 L Hct 31.1 L MCV 98 H MCH MCHC RDW 17.4 H Lymph % (Auto) [place] % (Auto) Lymph # (Auto) [place] # (Auto) Seg Neutrophils % Seg Neuts % (Manual) Lymphocytes % (Manual) Seg Neutrophils # Seg Neutrophils # Man Lymphocytes # (Manual) PT INR ABG pH ABG pO2 ABG HCO3 ABG O2 Saturation ABG Base Excess ABG Hemoglobin Oxyhemoglobin Sodium Potassium Chloride Carbon Dioxide BUN Creatinine 0.5 L Glucose POC Glucose 107 H Calcium Phosphorus AST ALT Ammonia Albumin Urine WBC (Auto) 03/24/22 03/25/22 03/25/22 11:15 00:14 11:24 WBC RBC Hgb Hct MCV MCH MCHC RDW Lymph % (Auto) [place] % (Auto) Lymph # (Auto) [place] # (Auto) Seg Neutrophils % Seg Neuts % (Manual) Lymphocytes % (Manual) Seg Neutrophils # Seg Neutrophils # Man Lymphocytes # (Manual) PT INR ABG pH ABG pO2 ABG HCO3 ABG O2 Saturation ABG Base Excess ABG Hemoglobin Oxyhemoglobin Sodium Potassium Chloride Carbon Dioxide BUN Creatinine Glucose POC Glucose 126 H 109 H 110 H Calcium Phosphorus AST ALT Ammonia Albumin Urine WBC (Auto) 03/25/22 03/26/22 03/26/22 16:27 05:18 11:15 WBC RBC Hgb Hct MCV MCH MCHC RDW Lymph % (Auto) [place] % (Auto) Lymph # (Auto) [place] # (Auto) Seg Neutrophils % Seg Neuts % (Manual) Lymphocytes % (Manual) Seg Neutrophils # Seg Neutrophils # Man Lymphocytes # (Manual) PT INR ABG pH ABG pO2 ABG HCO3 ABG O2 Saturation ABG Base Excess ABG Hemoglobin Oxyhemoglobin Sodium Potassium Chloride Carbon Dioxide BUN Creatinine Glucose POC Glucose 123 H 114 H 135 H Calcium Phosphorus AST ALT Ammonia Albumin Urine WBC (Auto) 03/26/22 03/27/22 03/27/22 18:08 03:52 03:52 WBC 17.1 H RBC 2.94 L Hgb 9.2 L Hct 29.3 L MCV 100 H MCH MCHC 31 L RDW 17.5 H Lymph % (Auto) [place] % (Auto) Lymph # (Auto) [place] # (Auto) Seg Neutrophils % Seg Neuts % (Manual) Lymphocytes % (Manual) Seg Neutrophils # Seg Neutrophils # Man Lymphocytes # (Manual) PT INR ABG pH ABG pO2 ABG HCO3 ABG O2 Saturation ABG Base Excess ABG Hemoglobin Oxyhemoglobin Sodium 136 L Potassium Chloride Carbon Dioxide 32 H BUN 23 H Creatinine 0.6 L Glucose POC Glucose 130 H Calcium 8.2 L Phosphorus AST ALT Ammonia Albumin Urine WBC (Auto) 03/27/22 03/27/22 03/27/22 08:36 12:55 18:27 WBC RBC Hgb Hct MCV MCH MCHC RDW Lymph % (Auto) [place] % (Auto) Lymph # (Auto) [place] # (Auto) Seg Neutrophils % Seg Neuts % (Manual) Lymphocytes % (Manual) Seg Neutrophils # Seg Neutrophils # Man Lymphocytes # (Manual) PT INR ABG pH ABG pO2 ABG HCO3 ABG O2 Saturation ABG Base Excess ABG Hemoglobin Oxyhemoglobin Sodium Potassium Chloride Carbon Dioxide BUN Creatinine Glucose POC Glucose 137 H 114 H Calcium Phosphorus AST ALT Ammonia Albumin Urine WBC (Auto) > 182.0 H 03/28/22 03/28/22 03/28/22 01:00 04:06 04:52 WBC 14.2 H RBC 2.76 L Hgb 8.6 L Hct 26.8 L MCV 97 H MCH MCHC RDW 17.4 H Lymph % (Auto) 7.5 L [place] % (Auto) 10.5 H Lymph # (Auto) 1.1 L [place] # (Auto) 1.5 H Seg Neutrophils % 80.7 H Seg Neuts % (Manual) Lymphocytes % (Manual) Seg Neutrophils # 11.4 H Seg Neutrophils # Man Lymphocytes # (Manual) PT INR ABG pH ABG pO2 ABG HCO3 ABG O2 Saturation ABG Base Excess ABG Hemoglobin Oxyhemoglobin Sodium Potassium Chloride Carbon Dioxide BUN Creatinine Glucose POC Glucose 111 H 111 H Calcium Phosphorus AST ALT Ammonia Albumin Urine WBC (Auto) 03/28/22 03/28/22 03/29/22 12:09 23:23 04:22 WBC RBC 2.85 L Hgb 8.9 L Hct 27.8 L MCV 98 H MCH MCHC RDW 17.8 H Lymph % (Auto) [place] % (Auto) Lymph # (Auto) [place] # (Auto) Seg Neutrophils % Seg Neuts % (Manual) Lymphocytes % (Manual) Seg Neutrophils # Seg Neutrophils # Man Lymphocytes # (Manual) PT INR ABG pH ABG pO2 ABG HCO3 ABG O2 Saturation ABG Base Excess ABG Hemoglobin Oxyhemoglobin Sodium Potassium Chloride Carbon Dioxide BUN Creatinine Glucose POC Glucose 114 H 112 H Calcium Phosphorus AST ALT Ammonia Albumin Urine WBC (Auto) 03/29/22 03/29/22 03/29/22 05:56 12:22 23:39 WBC RBC Hgb Hct MCV MCH MCHC RDW Lymph % (Auto) [place] % (Auto) Lymph # (Auto) [place] # (Auto) Seg Neutrophils % Seg Neuts % (Manual) Lymphocytes % (Manual) Seg Neutrophils # Seg Neutrophils # Man Lymphocytes # (Manual) PT INR ABG pH ABG pO2 ABG HCO3 ABG O2 Saturation ABG Base Excess ABG Hemoglobin Oxyhemoglobin Sodium Potassium Chloride Carbon Dioxide BUN Creatinine Glucose POC Glucose 116 H 130 H 121 H Calcium Phosphorus AST ALT Ammonia Albumin Urine WBC (Auto) 03/30/22 03/30/22 03/30/22 11:52 16:04 23:05 WBC RBC Hgb Hct MCV MCH MCHC RDW Lymph % (Auto) [place] % (Auto) Lymph # (Auto) [place] # (Auto) Seg Neutrophils % Seg Neuts % (Manual) Lymphocytes % (Manual) Seg Neutrophils # Seg Neutrophils # Man Lymphocytes # (Manual) PT INR ABG pH ABG pO2 ABG HCO3 ABG O2 Saturation ABG Base Excess ABG Hemoglobin Oxyhemoglobin Sodium Potassium Chloride Carbon Dioxide BUN Creatinine Glucose POC Glucose 127 H 122 H 113 H Calcium Phosphorus AST ALT Ammonia Albumin Urine WBC (Auto) 03/31/22 03/31/22 03/31/22 03:56 03:56 10:59 WBC RBC 3.08 L Hgb 9.5 L Hct 30.1 L MCV 98 H MCH MCHC RDW 17.7 H Lymph % (Auto) [place] % (Auto) Lymph # (Auto) [place] # (Auto) Seg Neutrophils % Seg Neuts % (Manual) Lymphocytes % (Manual) Seg Neutrophils # Seg Neutrophils # Man Lymphocytes # (Manual) PT INR ABG pH ABG pO2 ABG HCO3 ABG O2 Saturation ABG Base Excess ABG Hemoglobin Oxyhemoglobin Sodium 135 L Potassium Chloride 97.4 L Carbon Dioxide 31 H BUN Creatinine 0.5 L Glucose 102 H POC Glucose 120 H Calcium Phosphorus AST ALT Ammonia Albumin Urine WBC (Auto) 04/01/22 04/01/22 04/01/22 00:09 06:08 11:03 WBC RBC Hgb Hct MCV MCH MCHC RDW Lymph % (Auto) [place] % (Auto) Lymph # (Auto) [place] # (Auto) Seg Neutrophils % Seg Neuts % (Manual) Lymphocytes % (Manual) Seg Neutrophils # Seg Neutrophils # Man Lymphocytes # (Manual) PT INR ABG pH ABG pO2 ABG HCO3 ABG O2 Saturation ABG Base Excess ABG Hemoglobin Oxyhemoglobin Sodium Potassium Chloride Carbon Dioxide BUN Creatinine Glucose POC Glucose 118 H 137 H 133 H Calcium Phosphorus AST ALT Ammonia Albumin Urine WBC (Auto) 04/01/22 04/02/22 17:36 05:49 WBC RBC Hgb Hct MCV MCH MCHC RDW Lymph % (Auto) [place] % (Auto) Lymph # (Auto) [place] # (Auto) Seg Neutrophils % Seg Neuts % (Manual) Lymphocytes % (Manual) Seg Neutrophils # Seg Neutrophils # Man Lymphocytes # (Manual) PT INR ABG pH ABG pO2 ABG HCO3 ABG O2 Saturation ABG Base Excess ABG Hemoglobin Oxyhemoglobin Sodium Potassium Chloride Carbon Dioxide BUN Creatinine Glucose POC Glucose 116 H 107 H Calcium Phosphorus AST ALT Ammonia Albumin Urine WBC (Auto)
[2022-04-02] MEDS: PRAVASTATIN 40 MG TAB FEEDTUBE SCH (21:12)
[2022-04-03] MEDS: ALBUTEROL 2.5 MG/3 ML NEBU IH SCH ×4 (03:49→19:11)
[2022-04-03 05:34] LABS: Hematocrit 37.6 % (35.5-45.6); Hemoglobin 11.9 gm/dl (11.8-15.2); Mean Corpuscular HGB Conc 32 % (32-34); Mean Corpuscular Volume 98 fl (84-94); Platelet Count 378 K/mm3 (140-440); Red Blood Count 3.85 M/mm3 (3.65-5.03); Red Cell Distribution Width 17.9 % (13.2-15.2)
--- NOTE | 2022-04-03 05:34 | XRay Report ---
CHEST 1 VIEW INDICATION / CLINICAL INFORMATION: sob. COMPARISON: Chest x-ray 03/27/2022 FINDINGS: SUPPORT DEVICES: Stable, satisfactory device positioning. Interval placement of weighted feeding tube tip within the distal gastric antrum. HEART / MEDIASTINUM: Heart size is within normal limits. Mediastinal contour demonstrates no signific ant abnormality. LUNGS / PLEURA: Bilateral lung opacities demonstrate no significant interval change. Persistent atele ctatic changes of the left lower lobe. BONES: No significant osseous abnormality. ADDITIONAL FINDINGS: No significant additional findings. IMPRESSION: 1. Interval placement of weighted feeding tube as detailed. Tip in satisfactory position. 2. Otherwise little change in the chest. Signer Name: Lloyd Upton II, MD Signed: 04/03/2022 5:30 AM Workstation Name: [id number]
[2022-04-03 05:41] LABS: INR 1.05 (0.87-1.13)
[2022-04-03 05:42] LABS: Partial Thromboplastin Time 33.4 Sec. (24.2-36.6)
[2022-04-03 05:50] LABS: Blood Urea Nitrogen 20 mg/dL (9-20); Calcium 9.1 mg/dL (8.4-10.2); Hemolysis Index 42
[2022-04-03 05:59] LABS: BUN/Creatinine Ratio 33
[2022-04-03] MEDS: LEVOTHYROXINE 25 MCG TAB FEEDTUBE SCH (06:23)
[2022-04-03] MEDS: HEPARIN 5,000 UNIT/1 ML VIAL SUB-Q SCH ×3 (06:24→21:33)
[2022-04-03] MEDS: MIDODRINE 2.5 MG TAB FEEDTUBE SCH (08:27)
--- NOTE | 2022-04-03 10:10 | Progress Note ---
Assessment and Plan 61 y/o male with abnormal CT of chest. 04/03/22: Day [address]ubation[address] on [address] appointed guardian as it has been approved. 04/02/22: Day 37 of intubation. Continue daily PSV trials. Courts agree with guardianship now awaiting on one to be appointed. 04/01/22: Day 36 of intubation. Continue Daily PSV. Per CM awaiting guardian appointment as courts have agreed to this. 03/31/22: Day 35 of intubation. CBC and chemistry is stable. Awaiting courts and hospital. 03/30/22: Day 34 of intubation. No labs today. Monitor fever as he had low grade temp early am. Rocephin finished yesterday. 03/29/22: Day 33 of intubation. WC now normal. No fever. Hard stop date on the abx. Awaiting Hospital and Court about guardianship. 03/28/22: Day 32 of intubation. WBC better. No fever. Still awaiting hospital and courts. 03/27/22: Day 31 of intubation. Given increase in WBC will treat empirically with Rocephin. Follow up urine cultures. CXR appears stable, await official read. Guarded prognosis. 03/26/22: Day 30 of Intubation. Daily PSV trials. no new recommendations. 03/25/22: Day 29 of intubation. RT to try PSV this am, hesistant given low sats but improved with suctioning. Still no word from the hospital in regards to guardianship. I do not feel comfortable with attempting extubation again on this patient given his quick failure and difficult re-intubation. 03/24/22: Day 28 of intubation. reviewed my partners notes from the weekend. Glad patient is tolerating PSV however do not see conventional extubation in the near future given patient's mental status and how fast he failed extubation (within an hour) on his first attempt. Patient was also a difficult re- intubation. Follow up with and hospital tomorrow. Continue supportive measures. 03/21/22: Day 25 of intubation. No new updates from the hospital about guardianship. Wound care saw on yesterday. Continue daily PSV trials as navya rated. Guarded prognosis. 03/20/22: Day 24 of intubation. No new recommendations. Still awaiting hospital update in regards to guardianship so that decisions can be made. Continue supportive measures. Wound care to see today. 03/19/22: Day 23 of intubation. Prognosis is still guarded. Will discuss with RT about attempts at daily PSV trials. Per notes, Wound care to see , wound was present on admission. 03/18/22: Day 22 of intubation. Prognosis remains guarded. Not able to obtain trach and peg with consent. Continue daily PSV trials as tolerated. 03/17/22: Day 21 of intubation. Still awaiting some form of decision maker for trach and peg placement. Guarded prognosis. 03/16/22: Day 20 of intubation. BP stable. Continue midodrine. Awaiting emergency guardianship from Court to obtain consent for trach and peg. Guarded prognosis. 03/15/22: Day 19 of intubation. BP now is marginal more regularly. Will give an additional liter bolus of LR now. May need to increase Midodrine back to 5. Needs trach in order to be safely weaned from ventilator. Will need peg tube placement in addition to trach. Prognosis remains guarded. Continue PSV trials as tolerated. 03/14/22: Day 18 of intubation. Vitals stable and mental status is unchanged. Still in need of tracheostomy as well as peg tube placement. No guardian appointed yet. 03/13/22: Day 17 of intubation. Agree with bolus and restarting of midodrine. was stopped previously secondary to bradycardia. If patient spikes temp, will culture blood and urine and repeat CXR. Continue daily PSV trials to assess ability for vent liberation. Continues to need trach however no family/guardian to provide consent. Guarded prognosis. 03/12/22: Day 16 of intubation. Following up with hospital in regards to guardian. Continue supportive measures. Guarded prognosis. 03/11/22: hospital now attempting to find emergency guardian to have consent for trach as ethics committee cannot comment on this matter so unable to help. Until then will remain intubated orally. Failed PSV yesterday, will continue to attempt on daily basis. Unfortunate situation. Guarded prognosis. 03/10/22: Today nuñez day 14 of intubation. Given patient's mental state and increased risk of aspiration, the likelihood of conventional extubation with success is very very slim and the patient has already failed this in an ex tremely short period of time (less than 1 hour). I suspect that he will fail again if tried and could create more difficult reintubation as he was a difficult reintubation on his failed extubation attempt. To prevent further decline and potential complications of prolonged mechanical ventilation, will discuss with ethics and the hospital to use 2 physician consent to obtain trach and peg for this patient with hopes of liberating him from the mechanical ventilator. he has very minimal vent requirements but as been stated several times above, he continues to aspirate and failed conventional extubation almost immediately. Will consult surgery today. Dr. Mancia is prepared to sign consent as well as myself. Hopeful surgery will be on board with this. Continue supportive care for now. Attempt daily PSV trials. 03/07/22: Daily PSV trials as tolerated. Still no one to step up as adult f mariangel. patient has now been intubated since 02/24/22 and is approaching the time period in which prolonged mechanical ventilation could lead to significant complications that could be detrimental to health (infection, stenosis, malacia etc). Will discuss again with ethics but in regards to medical necessity, may need to consider two physician consent if no one is able to claim responsibility for this patient. He is a full code and we must work in his best interest to prevent further harm. Continue supportive measures but he is not a candidate for conventional extubation given his mental state, despite being on minimal support. He has already failed this before. 03/06/22: PSV trials daily. Will discuss with RT. Spoke with ethics. Plan in place and awaiting on [facility] Continue supportive measures. Patient has been intubated since 02/24/22 and is approaching the 2 week shadi of intubation will need to make decisions soon to avoid unnecessary complications related to prolonged intubation. 03/05/22: Will follow up with ethics today. Awaiting some guidance about consent for trach and peg. This is a medical necessity to liberate patient from mechanical ventilation. Continue supportive measures. Ok with daily PSV trials 03/04/22: Follow up with ethics later this afternoon. Spoke with RT and patient does have cuff leak, will stop steroids. Stopping midodrine as BP is stable and bradycardia likely from this. 03/03/22: Await ethics eval. CM has spoken with state as well. Daily cuff leaks. Will start to wean steroids tomorrow. Midodrine can cause bradycardia. If continues or worsens will stop. Guarded prognosis. 03/02/22: Continue supportive measures. Await ethics consult before surgery consult for trach and peg. no further need for fluid boluses. Will continue stress dose steroids but have daily air leak checks by RT. Still will need trach, will not attempt extubation again. Guarded prognosis. 03/01/22: Patient is having increased urine output. This could be the cause of new onset hypotension. Will bolus 2 more liters of LR now and reassess. If this continues may need to work up for SIADH including repeat head CT. Follow up ethics review of case. Will need trach for ventilator liberation. Overall prognosis remains guarded. 02/28/22: Will obtain CT neck, noncontrast to look for airway edema or other possible etiologies for failure. Needs ethics consult as given patient's mental state, inability to clear secretions appropriately, will need trach now that he has failed extubation. However he has no family and no POA so no one to give consent. Continue supportive measures. Guarded prognosis. 02/27/22: Continue improvement of oxygenation. Will drop PEEP down today with goal of being at 6 by in the morning. Will repeat CT scan to confirm improvement as no endobronchial lesion was seen, but also to make sure no parenchymal mass. There was no evidence of extrinsic compression during bronch. Likely extubation tomorrow post CT. 02/26/22: Repeat CXR now. Wean Vent as tolerated. Hopeful extubation soon. Mucous removed. NO ENDOBRONCHIAL LESION/MASS 02/25/22: Bronch tentatively planned for tomorrow with therapeutic scope. Awaiting GI lab to give a time. NPO after midnight. Continue high PEEP 02/24/22: WIll attempt to bronch tomorrow morning. NPO after midnight. Just received word from GI lab they are not able to do bronch tomorrow. Cancel NPO order. Continue to feed patient. Repeat ABG in AM along with CXR. 02/21/22: No new pulm recs for today. Please obtain repeat CXR likely on Thursday. If patient happens to get worse, likely not a candidate for bipap given his weak cough and mental state and inability to communicate. If worsens and requires intubation, will bronch then under emergent circumstances if no POA or family is able to be located. Continue CPT. Will discuss with RT about NT suctioning. 02/20/22: Saw speech while on the floor. Would like patient to be NPO now. Discussed with nurse on floor and with IMS. Same haz[address] as yesterday. Would benefit from bronch if able to get consent as this is not emergent. Continue CPT and q shift NT suctioning. Reviewed admission in the past and of note, patient was recently admitted last month and had a CXR done on the 29 of January that was normal. Given this patient's medical history and the history that I obtained from the nursing staff that at the shelter he was eating solid foods, I suspect that this is aspiration, possibly of a foreign body (most likely food) with atelectasis of the right lower lobe. It is highly unlikely that a mass evolved in size in less than a months time and patient, besides age, has no real risk factors for lung carcinoma. Discussed with the nurse and unfortunately there is no identifiable person that is able to give consent. Bronchoscopy is needed in the case to evaluate to see if lung mass is there vs foreign body, but at this time not able to do. In the meanwhile will recommend the following. 1. Will order CPT with neb therapy 3x daily 2. Suggest maybe NT suctioning q shift. May use nasal trumpet, however do not leave this device in the patient 3. Aspiration precautions 4. Consider speech eval to assess swallowing. Will continue to follow. CCT 31 minutes. Subjective Date of service: 04/03/22 Principal diagnosis: f/u Acute respiratory failure Interval history: No acute events. Objective Vital Signs - 12hr 04/02/22 04/02/22 04/02/22 23:01 23:13 23:14 Temperature 97.9 F Pulse Rate 73 80 Pulse Rate [ Anterior Bilateral Throughout] Pulse Rate [ From Monitor] Respiratory 14 18 Rate Respiratory Rate [Anterior Bilateral Throughout] Blood Pressure 94/50 94/50 O2 Sat by Pulse 97 99 96 Oximetry 04/02/22 04/03/22 04/03/22 23:40 00:00 01:00 Temperature Pulse Rate 72 73 67 Pulse Rate [ Anterior Bilateral Throughout] Pulse Rate [ From Monitor] Respiratory 11 L 13 Rate Respiratory Rate [Anterior Bilateral Throughout] Blood Pressure 94/50 95/58 92/50 O2 Sat by Pulse 98 99 98 Oximetry 04/03/22 04/03/22 04/03/22 02:00 03:00 03:31 Temperature Pulse Rate 100 H 97 H 111 H Pulse Rate [ Anterior Bilateral Throughout] Pulse Rate [ From Monitor] Respiratory 16 21 Rate Respiratory Rate [Anterior Bilateral Throughout] Blood Pressure 92/50 129/109 O2 Sat by Pulse 96 Oximetry 04/03/22 04/03/22 04/03/22 03:50 03:51 04:00 Temperature 97.5 F L Pulse Rate 111 H 106 H Pulse Rate [ 112 H Anterior Bilateral Throughout] Pulse Rate [ From Monitor] Respiratory 19 Rate Respiratory 21 Rate [Anterior Bilateral Throughout] Blood Pressure 129/109 136/75 O2 Sat by Pulse 97 97 Oximetry 04/03/22 04/03/22 04/03/22 05:00 06:00 07:00 Temperature Pulse Rate 112 H 93 H 86 Pulse Rate [ Anterior Bilateral Throughout] Pulse Rate [ From Monitor] Respiratory 18 14 14 Rate Respiratory Rate [Anterior Bilateral Throughout] Blood Pressure 180/114 104/65 112/71 O2 Sat by Pulse 99 93 97 Oximetry 04/03/22 04/03/22 08:00 08:13 Temperature 98.0 F Pulse Rate 77 77 Pulse Rate [ 77 Anterior Bilateral Throughout] Pulse Rate [ 77 From Monitor] Respiratory 14 Rate Respiratory 14 Rate [Anterior Bilateral Throughout] Blood Pressure 95/62 86/68 O2 Sat by Pulse 98 99 Oximetry Constitutional: alert, other (critically ill on ventilator) Eyes: non-icteric ENT: oropharynx moist Neck: supple Effort: normal Ascultation: Bilateral: diminished breath sounds, rhonchi Cardiovascular: regular rate and rhythm (no mrg) Gastrointestinal: normoactive bowel sounds, soft, non-tender (on o2 vest in pl jese), non-distended Integumentary: normal Extremities: no cyanosis, no edema Neurologic: other (awake) Psychiatric: other (unable to assess) CBC and BMP: 04/03/22 04:04 04/03/22 04:04 ABG, PT/INR, D-dimer: ABG ABG pH 7.392 pH Units (7.350-7.450) 03/22/22 14:25 ABG pCO2 54.4 mm Hg 03/22/22 14:25 ABG pO2 150.5 mm Hg (80.0-90.0) H 03/22/22 14:25 ABG O2 Saturation 98.8 % (95.0-99.0) 03/22/22 14:25 PT/INR, D-dimer PT 15.2 Sec. (12.2-14.9) H 04/03/22 04:04 INR 1.05 (0.87-1.13) 04/03/22 04:04 Abnormal lab findings: Abnormal Labs 02/18/22 02/18/22 02/18/22 19:34 21:02 21:02 WBC RBC Hgb Hct MCV 101 H MCH 34 H MCHC RDW 16.1 H Lymph % (Auto) Bond % (Auto) 12.4 H Lymph # (Auto) Bond # (Auto) 1.2 H Seg Neutrophils % 73.0 H Seg Neuts % (Manual) Lymphocytes % (Manual) Seg Neutrophils # Seg Neutrophils # Man Lymphocytes # (Manual) PT 16.9 H INR 1.20 H ABG pH ABG pO2 ABG HCO3 ABG O2 Saturation ABG Base Excess ABG Hemoglobin Oxyhemoglobin Sodium Potassium Chloride Carbon Dioxide BUN Creatinine Glucose POC Glucose 116 H Calcium Phosphorus AST ALT Ammonia Albumin Urine WBC (Auto) 02/18/22 02/18/22 02/18/22 21:02 22:45 23:22 WBC RBC Hgb Hct MCV MCH MCHC RDW Lymph % (Auto) Bond % (Auto) Lymph # (Auto) Bond # (Auto) Seg Neutrophils % Seg Neuts % (Manual) Lymphocytes % (Manual) Seg Neutrophils # Seg Neutrophils # Man Lymphocytes # (Manual) PT INR ABG pH ABG pO2 55.6 L ABG HCO3 28.4 H ABG O2 Saturation 91.5 L ABG Base Excess 3.8 H ABG Hemoglobin 13.2 L Oxyhemoglobin 89.6 L Sodium Potassium 5.1 H Chloride Carbon Dioxide BUN Creatinine Glucose 102 H POC Glucose Calcium Phosphorus AST 48 H ALT 64 H Ammonia 14.0 L Albumin 2.7 L Urine WBC (Auto) 02/20/22 02/20/22 02/23/22 04:59 04:59 06:29 WBC 11.4 H RBC Hgb Hct MCV 103 H MCH 33 H MCHC RDW 16.5 H Lymph % (Auto) 5.5 L Bond % (Auto) 12.1 H Lymph # (Auto) 0.6 L Bond # (Auto) 1.4 H Seg Neutrophils % 81.4 H Seg Neuts % (Manual) Lymphocytes % (Manual) Seg Neutrophils # 9.2 H Seg Neutrophils # Man Lymphocytes # (Manual) PT INR ABG pH ABG pO2 ABG HCO3 ABG O2 Saturation ABG Base Excess ABG Hemoglobin Oxyhemoglobin Sodium Potassium Chloride Carbon Dioxide BUN Creatinine Glucose POC Glucose 113 H Calcium 8.2 L Phosphorus AST ALT Ammonia Albumin Urine WBC (Auto) 02/23/22 02/23/22 02/24/22 11:22 16:10 00:02 WBC RBC Hgb Hct MCV MCH MCHC RDW Lymph % (Auto) Bond % (Auto) Lymph # (Auto) Bond # (Auto) Seg Neutrophils % Seg Neuts % (Manual) Lymphocytes % (Manual) Seg Neutrophils # Seg Neutrophils # Man Lymphocytes # (Manual) PT INR ABG pH ABG pO2 ABG HCO3 ABG O2 Saturation ABG Base Excess ABG Hemoglobin Oxyhemoglobin Sodium Potassium Chloride Carbon Dioxide BUN Creatinine Glucose POC Glucose 108 H 115 H 109 H Calcium Phosphorus AST ALT Ammonia Albumin Urine WBC (Auto) 02/24/22 02/24/22 02/24/22 11:05 11:05 13:20 WBC RBC 3.55 L Hgb Hct MCV 100 H MCH 34 H MCHC RDW 15.6 H Lymph % (Auto) Bond % (Auto) Lymph # (Auto) Bond # (Auto) Seg Neutrophils % Seg Neuts % (Manual) Lymphocytes % (Manual) Seg Neutrophils # Seg Neutrophils # Man Lymphocytes # (Manual) PT INR ABG pH ABG pO2 ABG HCO3 ABG O2 Saturation ABG Base Excess ABG Hemoglobin Oxyhemoglobin Sodium 146 H Potassium 3.2 L D Chloride 108.4 H Carbon Dioxide BUN Creatinine 0.5 L Glucose POC Glucose 111 H Calcium 7.9 L Phosphorus 2.20 L AST ALT Ammonia Albumin Urine WBC (Auto) 02/24/22 02/24/22 02/24/22 16:30 17:03 20:25 WBC RBC Hgb Hct MCV MCH MCHC RDW Lymph % (Auto) Bond % (Auto) Lymph # (Auto) Bond # (Auto) Seg Neutrophils % Seg Neuts % (Manual) Lymphocytes % (Manual) Seg Neutrophils # Seg Neutrophils # Man Lymphocytes # (Manual) PT INR ABG pH 7.319 L ABG pO2 65.3 L ABG HCO3 31.3 H ABG O2 Saturation 92.2 L ABG Base Excess 3.8 H ABG Hemoglobin 12.0 L Oxyhemoglobin 90.3 L Sodium Potassium Chloride 107.9 H Carbon Dioxide BUN 8 L Creatinine 0.4 L Glucose POC Glucose 108 H Calcium 7.6 L Phosphorus 4.60 H D AST ALT Ammonia Albumin Urine WBC (Auto) 02/25/22 02/25/22 02/25/22 04:12 04:12 05:05 WBC RBC 3.07 L Hgb 10.2 L Hct 31.5 L MCV 103 H MCH 33 H MCHC RDW 15.6 H Lymph % (Auto) Bond % (Auto) Lymph # (Auto) Bond # (Auto) Seg Neutrophils % Seg Neuts % (Manual) Lymphocytes % (Manual) Seg Neutrophils # Seg Neutrophils # Man Lymphocytes # (Manual) PT INR ABG pH ABG pO2 ABG HCO3 32.5 H ABG O2 Saturation ABG Base Excess 5.6 H ABG Hemoglobin 10.8 L Oxyhemoglobin 94.8 L Sodium Potassium 3.5 L Chloride 107.7 H Carbon Dioxide BUN Creatinine 0.5 L Glucose POC Glucose Calcium 7.0 L Phosphorus AST ALT Ammonia Albumin Urine WBC (Auto) 02/25/22 02/25/22 02/26/22 12:05 18:33 00:07 WBC RBC Hgb Hct MCV MCH MCHC RDW Lymph % (Auto) Bond % (Auto) Lymph # (Auto) Bond # (Auto) Seg Neutrophils % Seg Neuts % (Manual) Lymphocytes % (Manual) Seg Neutrophils # Seg Neutrophils # Man Lymphocytes # (Manual) PT INR ABG pH ABG pO2 ABG HCO3 ABG O2 Saturation ABG Base Excess ABG Hemoglobin Oxyhemoglobin Sodium Potassium Chloride Carbon Dioxide BUN Creatinine Glucose POC Glucose 127 H 125 H 114 H Calcium Phosphorus AST ALT Ammonia Albumin Urine WBC (Auto) 02/26/22 02/26/22 02/26/22 03:30 04:42 11:34 WBC RBC Hgb Hct MCV MCH MCHC RDW Lymph % (Auto) Bond % (Auto) Lymph # (Auto) Bond # (Auto) Seg Neutrophils % Seg Neuts % (Manual) Lymphocytes % (Manual) Seg Neutrophils # Seg Neutrophils # Man Lymphocytes # (Manual) PT INR ABG pH ABG pO2 143.2 H ABG HCO3 33.2 H ABG O2 Saturation ABG Base Excess 6.5 H ABG Hemoglobin 9.4 L Oxyhemoglobin Sodium Potassium Chloride Carbon Dioxide 32 H BUN Creatinine 0.7 L Glucose POC Glucose 114 H Calcium 8.0 L Phosphorus AST ALT Ammonia Albumin Urine WBC (Auto) 02/26/22 02/26/22 02/27/22 18:17 23:37 04:19 WBC 13.7 H RBC 2.78 L Hgb 9.3 L Hct 28.5 L MCV 103 H MCH 33 H MCHC RDW 16.3 H Lymph % (Auto) Bond % (Auto) Lymph # (Auto) Bond # (Auto) Seg Neutrophils % Seg Neuts % (Manual) Lymphocytes % (Manual) Seg Neutrophils # Seg Neutrophils # Man Lymphocytes # (Manual) PT INR ABG pH ABG pO2 ABG HCO3 ABG O2 Saturation ABG Base Excess ABG Hemoglobin Oxyhemoglobin Sodium Potassium Chloride Carbon Dioxide BUN Creatinine Glucose POC Glucose 111 H 117 H Calcium Phosphorus AST ALT Ammonia Albumin Urine WBC (Auto) 02/27/22 02/27/22 02/27/22 04:19 04:35 05:27 WBC RBC Hgb Hct MCV MCH MCHC RDW Lymph % (Auto) Bond % (Auto) Lymph # (Auto) Bond # (Auto) Seg Neutrophils % Seg Neuts % (Manual) Lymphocytes % (Manual) Seg Neutrophils # Seg Neutrophils # Man Lymphocytes # (Manual) PT INR ABG pH ABG pO2 96.3 H ABG HCO3 34.9 H ABG O2 Saturation ABG Base Excess 8.1 H ABG Hemoglobin Oxyhemoglobin Sodium Potassium Chloride Carbon Dioxide 31 H BUN Creatinine 0.6 L Glucose 107 H POC Glucose 133 H Calcium 7.8 L Phosphorus AST ALT Ammonia Albumin Urine WBC (Auto) 02/27/22 02/27/22 02/28/22 11:15 23:35 03:38 WBC 13.3 H RBC 3.05 L Hgb 10.2 L Hct 30.7 L MCV 101 H MCH 33 H MCHC RDW 16.1 H Lymph % (Auto) Bond % (Auto) Lymph # (Auto) Bond # (Auto) Seg Neutrophils % Seg Neuts % (Manual) Lymphocytes % (Manual) Seg Neutrophils # Seg Neutrophils # Man Lymphocytes # (Manual) PT INR ABG pH ABG pO2 ABG HCO3 ABG O2 Saturation ABG Base Excess ABG Hemoglobin Oxyhemoglobin Sodium Potassium Chloride Carbon Dioxide BUN Creatinine Glucose POC Glucose 129 H 122 H Calcium Phosphorus AST ALT Ammonia Albumin Urine WBC (Auto) 02/28/22 02/28/22 02/28/22 04:50 05:30 09:30 WBC RBC Hgb Hct MCV MCH MCHC RDW Lymph % (Auto) Bond % (Auto) Lymph # (Auto) Bond # (Auto) Seg Neutrophils % Seg Neuts % (Manual) Lymphocytes % (Manual) Seg Neutrophils # Seg Neutrophils # Man Lymphocytes # (Manual) PT INR ABG pH 7.451 H 7.488 H ABG pO2 77.0 L ABG HCO3 37.1 H 34.6 H ABG O2 Saturation ABG Base Excess 11.5 H 10.1 H ABG Hemoglobin 10.1 L 10.0 L Oxyhemoglobin Sodium Potassium Chloride Carbon Dioxide BUN Creatinine Glucose POC Glucose 121 H Calcium Phosphorus AST ALT Ammonia Albumin Urine WBC (Auto) 02/28/22 02/28/22 03/01/22 11:36 23:07 04:27 WBC 12.5 H RBC 2.85 L Hgb 9.5 L Hct 28.6 L MCV 101 H MCH 33 H MCHC RDW 15.7 H Lymph % (Auto) Bond % (Auto) Lymph # (Auto) Bond # (Auto) Seg Neutrophils % Seg Neuts % (Manual) Lymphocytes % (Manual) Seg Neutrophils # Seg Neutrophils # Man Lymphocytes # (Manual) PT INR ABG pH ABG pO2 ABG HCO3 ABG O2 Saturation ABG Base Excess ABG Hemoglobin Oxyhemoglobin Sodium Potassium Chloride Carbon Dioxide BUN Creatinine Glucose POC Glucose 112 H 107 H Calcium Phosphorus AST ALT Ammonia Albumin Urine WBC (Auto) 03/01/22 03/01/22 03/01/22 04:27 05:05 11:29 WBC RBC Hgb Hct MCV MCH MCHC RDW Lymph % (Auto) Bond % (Auto) Lymph # (Auto) Bond # (Auto) Seg Neutrophils % Seg Neuts % (Manual) Lymphocytes % (Manual) Seg Neutrophils # Seg Neutrophils # Man Lymphocytes # (Manual) PT INR ABG pH ABG pO2 ABG HCO3 ABG O2 Saturation ABG Base Excess ABG Hemoglobin Oxyhemoglobin Sodium 147 H D Potassium Chloride Carbon Dioxide 34 H BUN Creatinine 0.6 L Glucose 128 H POC Glucose 119 H 121 H Calcium 7.9 L Phosphorus AST ALT Ammonia Albumin Urine WBC (Auto) 03/01/22 03/01/22 03/02/22 16:15 23:57 05:18 WBC RBC Hgb Hct MCV MCH MCHC RDW Lymph % (Auto) Bond % (Auto) Lymph # (Auto) Bond # (Auto) Seg Neutrophils % Seg Neuts % (Manual) Lymphocytes % (Manual) Seg Neutrophils # Seg Neutrophils # Man Lymphocytes # (Manual) PT INR ABG pH ABG pO2 110.5 H ABG HCO3 33.0 H ABG O2 Saturation ABG Base Excess 7.4 H ABG Hemoglobin 8.6 L Oxyhemoglobin Sodium Potassium Chloride Carbon Dioxide BUN Creatinine Glucose POC Glucose 134 H 140 H Calcium Phosphorus AST ALT Ammonia Albumin Urine WBC (Auto) 03/02/22 03/02/22 03/02/22 05:53 09:04 09:04 WBC 15.0 H RBC 3.00 L Hgb 9.7 L Hct 30.7 L MCV 102 H MCH MCHC RDW 16.6 H Lymph % (Auto) Bond % (Auto) Lymph # (Auto) Bond # (Auto) Seg Neutrophils % Seg Neuts % (Manual) Lymphocytes % (Manual) Seg Neutrophils # Seg Neutrophils # Man Lymphocytes # (Manual) PT INR ABG pH ABG pO2 ABG HCO3 ABG O2 Saturation ABG Base Excess ABG Hemoglobin Oxyhemoglobin Sodium Potassium Chloride Carbon Dioxide 31 H BUN Creatinine 0.6 L Glucose 157 H POC Glucose 158 H Calcium 7.9 L Phosphorus AST ALT Ammonia Albumin Urine WBC (Auto) 03/02/22 03/02/22 03/02/22 11:36 16:25 23:17 WBC RBC Hgb Hct MCV MCH MCHC RDW Lymph % (Auto) Bond % (Auto) Lymph # (Auto) Bond # (Auto) Seg Neutrophils % Seg Neuts % (Manual) Lymphocytes % (Manual) Seg Neutrophils # Seg Neutrophils # Man Lymphocytes # (Manual) PT INR ABG pH ABG pO2 ABG HCO3 ABG O2 Saturation ABG Base Excess ABG Hemoglobin Oxyhemoglobin Sodium Potassium Chloride Carbon Dioxide BUN Creatinine Glucose POC Glucose 160 H 132 H 157 H Calcium Phosphorus AST ALT Ammonia Albumin Urine WBC (Auto) 03/03/22 03/03/22 03/03/22 03:54 03:54 05:27 WBC 19.5 H RBC 2.79 L Hgb 9.0 L Hct 28.6 L MCV 102 H MCH MCHC RDW 16.2 H Lymph % (Auto) Bond % (Auto) Lymph # (Auto) Bond # (Auto) Seg Neutrophils % Seg Neuts % (Manual) 95.0 H Lymphocytes % (Manual) 3.0 L Seg Neutrophils # Seg Neutrophils # Man 18.5 H Lymphocytes # (Manual) 0.6 L PT INR ABG pH ABG pO2 ABG HCO3 ABG O2 Saturation ABG Base Excess ABG Hemoglobin Oxyhemoglobin Sodium Potassium Chloride Carbon Dioxide BUN Creatinine 0.6 L Glucose 130 H POC Glucose 149 H Calcium 8.1 L Phosphorus AST ALT Ammonia Albumin Urine WBC (Auto) 03/03/22 03/03/22 03/04/22 11:13 17:30 00:02 WBC RBC Hgb Hct MCV MCH MCHC RDW Lymph % (Auto) Bond % (Auto) Lymph # (Auto) Bond # (Auto) Seg Neutrophils % Seg Neuts % (Manual) Lymphocytes % (Manual) Seg Neutrophils # Seg Neutrophils # Man Lymphocytes # (Manual) PT INR ABG pH ABG pO2 ABG HCO3 ABG O2 Saturation ABG Base Excess ABG Hemoglobin Oxyhemoglobin Sodium Potassium Chloride Carbon Dioxide BUN Creatinine Glucose POC Glucose 139 H 138 H 157 H Calcium Phosphorus AST ALT Ammonia Albumin Urine WBC (Auto) 03/04/22 03/04/22 03/04/22 05:32 05:32 05:48 WBC 16.1 H RBC 2.81 L Hgb 9.3 L Hct 28.8 L MCV 102 H MCH 33 H MCHC RDW 16.7 H Lymph % (Auto) Bond % (Auto) Lymph # (Auto) Bond # (Auto) Seg Neutrophils % Seg Neuts % (Manual) Lymphocytes % (Manual) Seg Neutrophils # Seg Neutrophils # Man Lymphocytes # (Manual) PT INR ABG pH ABG pO2 ABG HCO3 ABG O2 Saturation ABG Base Excess ABG Hemoglobin Oxyhemoglobin Sodium Potassium Chloride Carbon Dioxide BUN Creatinine 0.7 L Glucose 135 H POC Glucose 145 H Calcium 8.3 L Phosphorus AST ALT Ammonia Albumin Urine WBC (Auto) 03/04/22 03/04/22 03/05/22 11:34 16:29 00:28 WBC RBC Hgb Hct MCV MCH MCHC RDW Lymph % (Auto) Bond % (Auto) Lymph # (Auto) Bond # (Auto) Seg Neutrophils % Seg Neuts % (Manual) Lymphocytes % (Manual) Seg Neutrophils # Seg Neutrophils # Man Lymphocytes # (Manual) PT INR ABG pH ABG pO2 ABG HCO3 ABG O2 Saturation ABG Base Excess ABG Hemoglobin Oxyhemoglobin Sodium Potassium Chloride Carbon Dioxide BUN Creatinine Glucose POC Glucose 148 H 140 H 116 H Calcium Phosphorus AST ALT Ammonia Albumin Urine WBC (Auto) 03/05/22 03/05/22 03/05/22 06:29 11:30 17:38 WBC RBC Hgb Hct MCV MCH MCHC RDW Lymph % (Auto) Bond % (Auto) Lymph # (Auto) Bond # (Auto) Seg Neutrophils % Seg Neuts % (Manual) Lymphocytes % (Manual) Seg Neutrophils # Seg Neutrophils # Man Lymphocytes # (Manual) PT INR ABG pH ABG pO2 ABG HCO3 ABG O2 Saturation ABG Base Excess ABG Hemoglobin Oxyhemoglobin Sodium Potassium Chloride Carbon Dioxide BUN Creatinine Glucose POC Glucose 114 H 114 H 117 H Calcium Phosphorus AST ALT Ammonia Albumin Urine WBC (Auto) 03/06/22 03/06/22 03/06/22 04:17 04:17 06:06 WBC 13.4 H RBC 2.85 L Hgb 9.4 L Hct 29.0 L MCV 102 H MCH 33 H MCHC RDW 16.4 H Lymph % (Auto) Bond % (Auto) Lymph # (Auto) Bond # (Auto) Seg Neutrophils % Seg Neuts % (Manual) Lymphocytes % (Manual) Seg Neutrophils # Seg Neutrophils # Man Lymphocytes # (Manual) PT INR ABG pH ABG pO2 ABG HCO3 ABG O2 Saturation ABG Base Excess ABG Hemoglobin Oxyhemoglobin Sodium Potassium 3.5 L Chloride Carbon Dioxide 31 H BUN Creatinine 0.6 L Glucose 101 H POC Glucose 106 H Calcium 7.7 L Phosphorus 2.00 L AST ALT Ammonia Albumin Urine WBC (Auto) 03/06/22 03/06/22 03/07/22 18:04 23:50 05:14 WBC RBC Hgb Hct MCV MCH MCHC RDW Lymph % (Auto) Bond % (Auto) Lymph # (Auto) Bond # (Auto) Seg Neutrophils % Seg Neuts % (Manual) Lymphocytes % (Manual) Seg Neutrophils # Seg Neutrophils # Man Lymphocytes # (Manual) PT INR ABG pH ABG pO2 ABG HCO3 ABG O2 Saturation ABG Base Excess ABG Hemoglobin Oxyhemoglobin Sodium Potassium Chloride Carbon Dioxide BUN Creatinine Glucose POC Glucose 108 H 115 H 116 H Calcium Phosphorus AST ALT Ammonia Albumin Urine WBC (Auto) 03/07/22 03/07/22 03/08/22 11:42 18:13 04:34 WBC RBC 2.86 L Hgb 9.2 L Hct 29.3 L MCV 103 H MCH MCHC 31 L RDW 16.9 H Lymph % (Auto) Bond % (Auto) Lymph # (Auto) Bond # (Auto) Seg Neutrophils % Seg Neuts % (Manual) Lymphocytes % (Manual) Seg Neutrophils # Seg Neutrophils # Man Lymphocytes # (Manual) PT INR ABG pH ABG pO2 ABG HCO3 ABG O2 Saturation ABG Base Excess ABG Hemoglobin Oxyhemoglobin Sodium Potassium Chloride Carbon Dioxide BUN Creatinine Glucose POC Glucose 123 H 109 H Calcium Phosphorus AST ALT Ammonia Albumin Urine WBC (Auto) 03/08/22 03/08/22 03/08/22 04:34 11:29 16:34 WBC RBC Hgb Hct MCV MCH MCHC RDW Lymph % (Auto) Bond % (Auto) Lymph # (Auto) Bond # (Auto) Seg Neutrophils % Seg Neuts % (Manual) Lymphocytes % (Manual) Seg Neutrophils # Seg Neutrophils # Man Lymphocytes # (Manual) PT INR ABG pH ABG pO2 ABG HCO3 ABG O2 Saturation ABG Base Excess ABG Hemoglobin Oxyhemoglobin Sodium Potassium Chloride Carbon Dioxide 33 H BUN Creatinine 0.5 L Glucose 109 H POC Glucose 117 H 109 H Calcium 7.6 L Phosphorus AST ALT Ammonia Albumin Urine WBC (Auto) 03/08/22 03/09/22 03/10/22 23:56 11:15 03:57 WBC RBC 2.99 L Hgb 9.9 L Hct 30.3 L MCV 102 H MCH 33 H MCHC RDW 16.8 H Lymph % (Auto) 13.3 L Bond % (Auto) 12.5 H Lymph # (Auto) Bond # (Auto) 1.3 H Seg Neutrophils % 72.4 H Seg Neuts % (Manual) Lymphocytes % (Manual) Seg Neutrophils # Seg Neutrophils # Man Lymphocytes # (Manual) PT INR ABG pH ABG pO2 ABG HCO3 ABG O2 Saturation ABG Base Excess ABG Hemoglobin Oxyhemoglobin Sodium Potassium Chloride Carbon Dioxide BUN Creatinine Glucose POC Glucose 106 H 110 H Calcium Phosphorus AST ALT Ammonia Albumin Urine WBC (Auto) 03/10/22 03/10/22 03/10/22 03:57 04:50 16:04 WBC RBC Hgb Hct MCV MCH MCHC RDW Lymph % (Auto) Bond % (Auto) Lymph # (Auto) Bond # (Auto) Seg Neutrophils % Seg Neuts % (Manual) Lymphocytes % (Manual) Seg Neutrophils # Seg Neutrophils # Man Lymphocytes # (Manual) PT INR ABG pH 7.465 H ABG pO2 ABG HCO3 31.9 H ABG O2 Saturation ABG Base Excess 7.3 H ABG Hemoglobin 11.0 L Oxyhemoglobin Sodium Potassium 3.4 L Chloride Carbon Dioxide BUN Creatinine 0.6 L Glucose POC Glucose 115 H Calcium 8.1 L Phosphorus AST ALT Ammonia Albumin 1.9 L Urine WBC (Auto) 03/11/22 03/11/22 03/11/22 04:02 04:02 04:02 WBC 12.0 H RBC 2.81 L Hgb 9.2 L Hct 29.1 L MCV 103 H MCH 33 H MCHC RDW 17.5 H Lymph % (Auto) Bond % (Auto) Lymph # (Auto) Bond # (Auto) Seg Neutrophils % Seg Neuts % (Manual) Lymphocytes % (Manual) Seg Neutrophils # Seg Neutrophils # Man Lymphocytes # (Manual) PT 16.2 H INR 1.16 H ABG pH ABG pO2 ABG HCO3 ABG O2 Saturation ABG Base Excess ABG Hemoglobin Oxyhemoglobin Sodium Potassium Chloride Carbon Dioxide BUN Creatinine 0.5 L Glucose 104 H POC Glucose Calcium 7.9 L Phosphorus AST ALT Ammonia Albumin Urine WBC (Auto) 03/11/22 03/11/22 03/11/22 05:10 11:07 16:32 WBC RBC Hgb Hct MCV MCH MCHC RDW Lymph % (Auto) Bond % (Auto) Lymph # (Auto) Bond # (Auto) Seg Neutrophils % Seg Neuts % (Manual) Lymphocytes % (Manual) Seg Neutrophils # Seg Neutrophils # Man Lymphocytes # (Manual) PT INR ABG pH 7.476 H ABG pO2 ABG HCO3 29.7 H ABG O2 Saturation ABG Base Excess 5.7 H ABG Hemoglobin 9.1 L Oxyhemoglobin Sodium Potassium Chloride Carbon Dioxide BUN Creatinine Glucose POC Glucose 108 H 121 H Calcium Phosphorus AST ALT Ammonia Albumin Urine WBC (Auto) 03/12/22 03/13/22 03/13/22 05:51 06:08 12:02 WBC RBC 2.73 L Hgb 9.0 L Hct 27.5 L MCV 101 H MCH 33 H MCHC RDW 17.2 H Lymph % (Auto) Bond % (Auto) Lymph # (Auto) Bond # (Auto) Seg Neutrophils % Seg Neuts % (Manual) Lymphocytes % (Manual) Seg Neutrophils # Seg Neutrophils # Man Lymphocytes # (Manual) PT INR ABG pH ABG pO2 ABG HCO3 ABG O2 Saturation ABG Base Excess ABG Hemoglobin Oxyhemoglobin Sodium Potassium Chloride Carbon Dioxide BUN Creatinine Glucose POC Glucose 116 H 111 H Calcium Phosphorus AST ALT Ammonia Albumin Urine WBC (Auto) 03/13/22 03/13/22 03/14/22 12:48 18:17 03:58 WBC RBC 2.97 L Hgb 9.7 L Hct 30.0 L MCV 101 H MCH 33 H MCHC RDW 16.7 H Lymph % (Auto) Bond % (Auto) Lymph # (Auto) Bond # (Auto) Seg Neutrophils % Seg Neuts % (Manual) Lymphocytes % (Manual) Seg Neutrophils # Seg Neutrophils # Man Lymphocytes # (Manual) PT INR ABG pH ABG pO2 ABG HCO3 ABG O2 Saturation ABG Base Excess ABG Hemoglobin Oxyhemoglobin Sodium Potassium Chloride Carbon Dioxide BUN Creatinine Glucose POC Glucose 125 H 114 H Calcium Phosphorus AST ALT Ammonia Albumin Urine WBC (Auto) 03/14/22 03/14/22 03/14/22 03:58 13:01 16:41 WBC RBC Hgb Hct MCV MCH MCHC RDW Lymph % (Auto) Bond % (Auto) Lymph # (Auto) Bond # (Auto) Seg Neutrophils % Seg Neuts % (Manual) Lymphocytes % (Manual) Seg Neutrophils # Seg Neutrophils # Man Lymphocytes # (Manual) PT INR ABG pH ABG pO2 ABG HCO3 ABG O2 Saturation ABG Base Excess ABG Hemoglobin Oxyhemoglobin Sodium Potassium Chloride Carbon Dioxide BUN Creatinine 0.6 L Glucose POC Glucose 118 H 109 H Calcium 8.2 L Phosphorus AST ALT Ammonia Albumin Urine WBC (Auto) 03/16/22 03/16/22 03/17/22 05:28 05:28 23:19 WBC RBC 2.81 L Hgb 9.1 L Hct 27.8 L MCV 99 H MCH MCHC RDW 17.0 H Lymph % (Auto) Bond % (Auto) Lymph # (Auto) Bond # (Auto) Seg Neutrophils % Seg Neuts % (Manual) Lymphocytes % (Manual) Seg Neutrophils # Seg Neutrophils # Man Lymphocytes # (Manual) PT INR ABG pH ABG pO2 ABG HCO3 ABG O2 Saturation ABG Base Excess ABG Hemoglobin Oxyhemoglobin Sodium Potassium Chloride Carbon Dioxide BUN Creatinine 0.5 L Glucose POC Glucose 113 H Calcium 8.2 L Phosphorus AST ALT Ammonia Albumin Urine WBC (Auto) 03/20/22 03/20/22 03/20/22 04:09 04:09 17:22 WBC RBC 2.90 L Hgb 9.6 L Hct 28.9 L MCV 100 H MCH 33 H MCHC RDW 17.4 H Lymph % (Auto) Bond % (Auto) Lymph # (Auto) Bond # (Auto) Seg Neutrophils % Seg Neuts % (Manual) Lymphocytes % (Manual) Seg Neutrophils # Seg Neutrophils # Man Lymphocytes # (Manual) PT INR ABG pH ABG pO2 ABG HCO3 ABG O2 Saturation ABG Base Excess ABG Hemoglobin Oxyhemoglobin Sodium Potassium Chloride Carbon Dioxide BUN Creatinine 0.6 L Glucose POC Glucose 110 H Calcium 8.2 L Phosphorus AST ALT Ammonia Albumin Urine WBC (Auto) 03/21/22 03/21/22 03/22/22 18:24 23:09 12:18 WBC RBC Hgb Hct MCV MCH MCHC RDW Lymph % (Auto) Bond % (Auto) Lymph # (Auto) Bond # (Auto) Seg Neutrophils % Seg Neuts % (Manual) Lymphocytes % (Manual) Seg Neutrophils # Seg Neutrophils # Man Lymphocytes # (Manual) PT INR ABG pH ABG pO2 ABG HCO3 ABG O2 Saturation ABG Base Excess ABG Hemoglobin Oxyhemoglobin Sodium Potassium Chloride Carbon Dioxide BUN Creatinine Glucose POC Glucose 110 H 107 H 106 H Calcium Phosphorus AST ALT Ammonia Albumin Urine WBC (Auto) 03/22/22 03/23/22 03/23/22 14:25 00:21 11:31 WBC RBC Hgb Hct MCV MCH MCHC RDW Lymph % (Auto) Bond % (Auto) Lymph # (Auto) Bond # (Auto) Seg Neutrophils % Seg Neuts % (Manual) Lymphocytes % (Manual) Seg Neutrophils # Seg Neutrophils # Man Lymphocytes # (Manual) PT INR ABG pH ABG pO2 150.5 H ABG HCO3 32.4 H ABG O2 Saturation ABG Base Excess 6.2 H ABG Hemoglobin 11.4 L Oxyhemoglobin Sodium Potassium Chloride Carbon Dioxide BUN Creatinine Glucose POC Glucose 107 H 110 H Calcium Phosphorus AST ALT Ammonia Albumin Urine WBC (Auto) 03/24/22 03/24/22 03/24/22 03:47 03:47 05:56 WBC RBC 3.18 L Hgb 10.1 L Hct 31.1 L MCV 98 H MCH MCHC RDW 17.4 H Lymph % (Auto) Bond % (Auto) Lymph # (Auto) Bond # (Auto) Seg Neutrophils % Seg Neuts % (Manual) Lymphocytes % (Manual) Seg Neutrophils # Seg Neutrophils # Man Lymphocytes # (Manual) PT INR ABG pH ABG pO2 ABG HCO3 ABG O2 Saturation ABG Base Excess ABG Hemoglobin Oxyhemoglobin Sodium Potassium Chloride Carbon Dioxide BUN Creatinine 0.5 L Glucose POC Glucose 107 H Calcium Phosphorus AST ALT Ammonia Albumin Urine WBC (Auto) 03/24/22 03/25/22 03/25/22 11:15 00:14 11:24 WBC RBC Hgb Hct MCV MCH MCHC RDW Lymph % (Auto) Bond % (Auto) Lymph # (Auto) Bond # (Auto) Seg Neutrophils % Seg Neuts % (Manual) Lymphocytes % (Manual) Seg Neutrophils # Seg Neutrophils # Man Lymphocytes # (Manual) PT INR ABG pH ABG pO2 ABG HCO3 ABG O2 Saturation ABG Base Excess ABG Hemoglobin Oxyhemoglobin Sodium Potassium Chloride Carbon Dioxide BUN Creatinine Glucose POC Glucose 126 H 109 H 110 H Calcium Phosphorus AST ALT Ammonia Albumin Urine WBC (Auto) 03/25/22 03/26/22 03/26/22 16:27 05:18 11:15 WBC RBC Hgb Hct MCV MCH MCHC RDW Lymph % (Auto) Bond % (Auto) Lymph # (Auto) Bond # (Auto) Seg Neutrophils % Seg Neuts % (Manual) Lymphocytes % (Manual) Seg Neutrophils # Seg Neutrophils # Man Lymphocytes # (Manual) PT INR ABG pH ABG pO2 ABG HCO3 ABG O2 Saturation ABG Base Excess ABG Hemoglobin Oxyhemoglobin Sodium Potassium Chloride Carbon Dioxide BUN Creatinine Glucose POC Glucose 123 H 114 H 135 H Calcium Phosphorus AST ALT Ammonia Albumin Urine WBC (Auto) 03/26/22 03/27/22 03/27/22 18:08 03:52 03:52 WBC 17.1 H RBC 2.94 L Hgb 9.2 L Hct 29.3 L MCV 100 H MCH MCHC 31 L RDW 17.5 H Lymph % (Auto) Bond % (Auto) Lymph # (Auto) Bond # (Auto) Seg Neutrophils % Seg Neuts % (Manual) Lymphocytes % (Manual) Seg Neutrophils # Seg Neutrophils # Man Lymphocytes # (Manual) PT INR ABG pH ABG pO2 ABG HCO3 ABG O2 Saturation ABG Base Excess ABG Hemoglobin Oxyhemoglobin Sodium 136 L Potassium Chloride Carbon Dioxide 32 H BUN 23 H Creatinine 0.6 L Glucose POC Glucose 130 H Calcium 8.2 L Phosphorus AST ALT Ammonia Albumin Urine WBC (Auto) 03/27/22 03/27/22 03/27/22 08:36 12:55 18:27 WBC RBC Hgb Hct MCV MCH MCHC RDW Lymph % (Auto) Bond % (Auto) Lymph # (Auto) Bond # (Auto) Seg Neutrophils % Seg Neuts % (Manual) Lymphocytes % (Manual) Seg Neutrophils # Seg Neutrophils # Man Lymphocytes # (Manual) PT INR ABG pH ABG pO2 ABG HCO3 ABG O2 Saturation ABG Base Excess ABG Hemoglobin Oxyhemoglobin Sodium Potassium Chloride Carbon Dioxide BUN Creatinine Glucose POC Glucose 137 H 114 H Calcium Phosphorus AST ALT Ammonia Albumin Urine WBC (Auto) > 182.0 H 03/28/22 03/28/22 03/28/22 01:00 04:06 04:52 WBC 14.2 H RBC 2.76 L Hgb 8.6 L Hct 26.8 L MCV 97 H MCH MCHC RDW 17.4 H Lymph % (Auto) 7.5 L Bond % (Auto) 10.5 H Lymph # (Auto) 1.1 L Bond # (Auto) 1.5 H Seg Neutrophils % 80.7 H Seg Neuts % (Manual) Lymphocytes % (Manual) Seg Neutrophils # 11.4 H Seg Neutrophils # Man Lymphocytes # (Manual) PT INR ABG pH ABG pO2 ABG HCO3 ABG O2 Saturation ABG Base Excess ABG Hemoglobin Oxyhemoglobin Sodium Potassium Chloride Carbon Dioxide BUN Creatinine Glucose POC Glucose 111 H 111 H Calcium Phosphorus AST ALT Ammonia Albumin Urine WBC (Auto) 03/28/22 03/28/22 03/29/22 12:09 23:23 04:22 WBC RBC 2.85 L Hgb 8.9 L Hct 27.8 L MCV 98 H MCH MCHC RDW 17.8 H Lymph % (Auto) Bond % (Auto) Lymph # (Auto) Bond # (Auto) Seg Neutrophils % Seg Neuts % (Manual) Lymphocytes % (Manual) Seg Neutrophils # Seg Neutrophils # Man Lymphocytes # (Manual) PT INR ABG pH ABG pO2 ABG HCO3 ABG O2 Saturation ABG Base Excess ABG Hemoglobin Oxyhemoglobin Sodium Potassium Chloride Carbon Dioxide BUN Creatinine Glucose POC Glucose 114 H 112 H Calcium Phosphorus AST ALT Ammonia Albumin Urine WBC (Auto) 03/29/22 03/29/22 03/29/22 05:56 12:22 23:39 WBC RBC Hgb Hct MCV MCH MCHC RDW Lymph % (Auto) Bond % (Auto) Lymph # (Auto) Bond # (Auto) Seg Neutrophils % Seg Neuts % (Manual) Lymphocytes % (Manual) Seg Neutrophils # Seg Neutrophils # Man Lymphocytes # (Manual) PT INR ABG pH ABG pO2 ABG HCO3 ABG O2 Saturation ABG Base Excess ABG Hemoglobin Oxyhemoglobin Sodium Potassium Chloride Carbon Dioxide BUN Creatinine Glucose POC Glucose 116 H 130 H 121 H Calcium Phosphorus AST ALT Ammonia Albumin Urine WBC (Auto) 03/30/22 03/30/22 03/30/22 11:52 16:04 23:05 WBC RBC Hgb Hct MCV MCH MCHC RDW Lymph % (Auto) Bond % (Auto) Lymph # (Auto) Bond # (Auto) Seg Neutrophils % Seg Neuts % (Manual) Lymphocytes % (Manual) Seg Neutrophils # Seg Neutrophils # Man Lymphocytes # (Manual) PT INR ABG pH ABG pO2 ABG HCO3 ABG O2 Saturation ABG Base Excess ABG Hemoglobin Oxyhemoglobin Sodium Potassium Chloride Carbon Dioxide BUN Creatinine Glucose POC Glucose 127 H 122 H 113 H Calcium Phosphorus AST ALT Ammonia Albumin Urine WBC (Auto) 03/31/22 03/31/22 03/31/22 03:56 03:56 10:59 WBC RBC 3.08 L Hgb 9.5 L Hct 30.1 L MCV 98 H MCH MCHC RDW 17.7 H Lymph % (Auto) Bond % (Auto) Lymph # (Auto) Bond # (Auto) Seg Neutrophils % Seg Neuts % (Manual) Lymphocytes % (Manual) Seg Neutrophils # Seg Neutrophils # Man Lymphocytes # (Manual) PT INR ABG pH ABG pO2 ABG HCO3 ABG O2 Saturation ABG Base Excess ABG Hemoglobin Oxyhemoglobin Sodium 135 L Potassium Chloride 97.4 L Carbon Dioxide 31 H BUN Creatinine 0.5 L Glucose 102 H POC Glucose 120 H Calcium Phosphorus AST ALT Ammonia Albumin Urine WBC (Auto) 04/01/22 04/01/22 04/01/22 00:09 06:08 11:03 WBC RBC Hgb Hct MCV MCH MCHC RDW Lymph % (Auto) Bond % (Auto) Lymph # (Auto) Bond # (Auto) Seg Neutrophils % Seg Neuts % (Manual) Lymphocytes % (Manual) Seg Neutrophils # Seg Neutrophils # Man Lymphocytes # (Manual) PT INR ABG pH ABG pO2 ABG HCO3 ABG O2 Saturation ABG Base Excess ABG Hemoglobin Oxyhemoglobin Sodium Potassium Chloride Carbon Dioxide BUN Creatinine Glucose POC Glucose 118 H 137 H 133 H Calcium Phosphorus AST ALT Ammonia Albumin Urine WBC (Auto) 04/01/22 04/02/22 04/02/22 17:36 05:49 13:25 WBC RBC Hgb Hct MCV MCH MCHC RDW Lymph % (Auto) Bond % (Auto) Lymph # (Auto) Bond # (Auto) Seg Neutrophils % Seg Neuts % (Manual) Lymphocytes % (Manual) Seg Neutrophils # Seg Neutrophils # Man Lymphocytes # (Manual) PT INR ABG pH ABG pO2 ABG HCO3 ABG O2 Saturation ABG Base Excess ABG Hemoglobin Oxyhemoglobin Sodium Potassium Chloride Carbon Dioxide BUN Creatinine Glucose POC Glucose 116 H 107 H 124 H Calcium Phosphorus AST ALT Ammonia Albumin Urine WBC (Auto) 04/02/22 04/03/22 04/03/22 17:06 04:04 04:04 WBC RBC Hgb Hct MCV 98 H MCH MCHC RDW 17.9 H Lymph % (Auto) Bond % (Auto) Lymph # (Auto) Bond # (Auto) Seg Neutrophils % Seg Neuts % (Manual) Lymphocytes % (Manual) Seg Neutrophils # Seg Neutrophils # Man Lymphocytes # (Manual) PT 15.2 H INR ABG pH ABG pO2 ABG HCO3 ABG O2 Saturation ABG Base Excess ABG Hemoglobin Oxyhemoglobin Sodium Potassium Chloride Carbon Dioxide BUN Creatinine Glucose POC Glucose 110 H Calcium Phosphorus AST ALT Ammonia Albumin Urine WBC (Auto) 04/03/22 04:04 WBC RBC Hgb Hct MCV MCH MCHC RDW Lymph % (Auto) Bond % (Auto) Lymph # (Auto) Bond # (Auto) Seg Neutrophils % Seg Neuts % (Manual) Lymphocytes % (Manual) Seg Neutrophils # Seg Neutrophils # Man Lymphocytes # (Manual) PT INR ABG pH ABG pO2 ABG HCO3 ABG O2 Saturation ABG Base Excess ABG Hemoglobin Oxyhemoglobin Sodium 136 L Potassium Chloride 97.1 L Carbon Dioxide BUN Creatinine 0.6 L Glucose POC Glucose Calcium Phosphorus 4.90 H AST ALT Ammonia Albumin Urine WBC (Auto)
[2022-04-03] MEDS: FAMOTIDINE 20 MG TAB FEEDTUBE SCH ×2 (10:35→21:34)
[2022-04-03] MEDS: levETIRAcetam 500 MG/5 ML ORAL LIQD FEEDTUBE SCH ×2 (10:35→21:33)
[2022-04-03] MEDS: SENNOSIDES/DOCUSATE SODIUM 8.6/50 MG TAB FEEDTUBE SCH ×2 (10:35→21:33)
--- NOTE | 2022-04-03 12:05 | Progress Note ---
<KEATON GOLD - Last Filed: 04/03/22 19:08> Assessment and Plan Assessment and plan: This is a 51-year-old male with HTN, seizure disorder, Down syndrome, HLD, partial blindness admitted with aspiration pneumonia, probable bronchogenic carcinoma, acute hypoxic respiratory failure and acute encephalopathy Hospital course to date: 02/19/2022. Consult pulmonary for further evaluation and possible bronchoscopy. I suspect patient has component of aspiration pneumonia as well. We will obtain a speech therapy evaluation for swallowing and start empiric antibiotics. Continue O2 supplementation to maintain sats greater than 92%. 02/20/2022. Pulmonary feels that the abnormality seen on CT scan is highly unlikely for a mass given negative chest x-ray 1 month ago and no risk factors. Etiology is likely secondary to aspiration from possibly a foreign body most likely food with atelectasis of the right lower lobe. Bronchoscopy is needed in the case to evaluate to see if lung mass is there vs foreign body, but at this time not able to do because no identifiable person that is able to give consent. Continue aspiration precautions and continue speech therapy evaluation for swallowing. Keep n.p.o. for now 02/21/2022. Patient remains NPO. Consider DHT placement. Follow-up with speech therapy evaluation. Pulmonology to consider bronchoscopy if able to obtain consent. Continue IV antibiotics for aspiration pneumonia 02/22/2022. Patient remains NPO. Consider DHT placement. Follow-up with speech therapy evaluation. Pulmonology to consider bronchoscopy if able to obtain consent. Continue IV antibiotics for aspiration pneumonia 02/23/2022. DHT placed yesterday. TF initiated for nutritional support. Patient currently with strict NPO. Aspiration precautions. Pulmonology to consider bronchoscopy if able to obtain consent. Continue IV antibiotics for aspiration pneumonia 02/24: Patient was transferred to the ICU for further monitoring. This morning patient remained on high flow nasal cannula on 40 L/100% and despite repeated nasotracheal suctioning patient SPO2 remained in the 80s. Patient was placed on nonrebreather and SPO2 increased to upper 80s. Patient was subsequently intubated by anesthesia. Started on sedation. 02/25: Patient remains sedated on fentanyl, potassium and magnesium repleted. IV fluids and amlodipine discontinued. Possible bronchoscopy tomorrow. 02/26: Patient had a bronchoscopy today which showed mucus and no endobronchial lesions or masses. FiO2 was increased to 100 during and postprocedure weaning as tolerated. Repeat CXR is much improved after bronc. Given 1 L LR bolus due to hypotension. No acute events reported overnight. 02/27: Decreased PEEP, will repeat CT of chest. no acute changes overnight. 02/28: Patient was extubated today however had to be be intubated shortly after. Patient ETT looked mispositioned on x-ray and Dr. Alonzo did do a bedside bronc. Patient was briefly hypotensive and on Levophed postintubation however Levophed was quickly titrated off and patient did not require central line. No acute events reported overnight. Will obtain CT neck d/t difficulty intubating. Ethi committee consulted. 03/04: Overnight patient was hypotensive and started on IVF. Patient started on steroids as no air leak noted and hypotension and given 2 L LR 03/05: Overnight patient received bolus per RN report, no orders seen. Continue supportive care 03/03: SB on the monitor, HR as low as 37, VSS. Will continue to monitor for now. Awaiting on desicion from [facility] for possible trach and PEG. Continue daily air leak per [facility] 03/04: MAIDA overnight. Remains stable on the vent. Awaiting on desicion from [facility] for possible trach and PEG. Continue current supportive measures 03/05: MAIDA overnight. Awaiting on desicion from [facility] for possible trach and PEG. Midodrine held yesterday, HR improved. Continue current supportive measures. Daily PSV trial as tolerated per [facility] 03/06: Remains stable on the vent. Continue current supportive measures, daily PSV trial per [facility]. Awaiting on desicion for possible trach and PEG. 03/07: MAIDA overnight, remains stable. Continue daily PSV trial as tolerated. Awaiting on desicion for possible trach and PEG. 03/08: Patient failed PSV trial this am due to tachycardia and increase RR. Continue supportive measures and daily PSV trial as tolerated. Possible discussion with [facility] and [facility] on Thursday in regards to medical necessity, may need to consider two physician consent if no one is able to claim responsibility for this patient. 03/09: MAIDA overnight. Continue current supportive measures and daily PSV trail as tolerated. Awaiting on desicion for possible trach and PEG, discussion with Ethics possibly tomorrow per [facility]. 03/10: no acute events overnight, PSV today. replete potassium. 03/11: No acute events reported overnight, patient failed PSV yesterday and will repeat today. Hospital to start guardianship process. 03/12: No acute events overnight. PSV today 03/13: Patient given 500ml normal saline and started on midodrine for h ypotension. No acute events reported overnight. Failed pressure support again this morning. 03/14: No acute events reported overnight, patient blood pressure seems better therefore midodrine discontinued. RT placed on CPAP need lasted for couple hours. Will remove summers 03/15: Midodrine was restarted yesterday evening for hypotension, Summers catheter not removed due to sacral ulcer and history of retention. Unable to crush Flomax and patient will not tolerate doxazosin given hypotension. Given LR bolus this morning. If blood pressure continues to be borderline after bolus, we will adjust management as needed. CPAP as tolerated 03/16: No acute events reported overnight, patient placed on CPAP trial this morning which he failed. 03/17: RT attempted PSV which he failed again today. No acute events reported overnight. 03/18: Awaiting ethic committee's decision on Trach/PEG. Patient tolerated PSV trial for over 3 hrs today, continue daily PSV trial as tolerated. 03/19: MAIDA overnight. Continue current supportive measures. Daily PSV trial as tolerated. Awaiting on desicion for possible trach and PEG. 03/20: MAIDA overnight. Daily PSV trial as tolerated. Awaiting decision on guardian ship for trach and PEG. 03/21: Remains stable, condition unchanged. Continue supportive measures and daily PSV trial as tolerated. 03/22: MAIDA overnight. Continue current supportive measures. Daily PSV trial as tolerated 03/23: MAIDA overnight, continue supportive measures and daily PSV trial as tolerated. 03/24: Condition unchanged. Still waiting on Ethics' decision for possible trach/Peg. Continue supportive measures and daily PSV trial as tolerated. 03/25: PSV attempt today, does open eyes to stimuli, no acute events overnight. 03/26: Yesterday evening Summers catheter was removed as he was due to be changed, condom cath placed. Overnight patient had good urine output and per RN repeated bladder scans showed less than 200 mL of urine. We will continue to monitor urine output. RT to attempt PSV 03/27: Patient has leukocytosis today and UA has pyuria with moderate LE therefore he will be started on antibiotics. 03/28: Leukocytosis improving. No acute events reported overnight. 03/29: No acute events overnight. Continue supportive care. 03/30: no acute events overnight, PSV again. 03/31: Condition unchanged, remains on low vent setting. Possible Ethics meeting today and tomorrow for possible guardianship. Will consult General Surgery for possible trach and Peg once guardianship decision has been made. Continue supportive measures and daily PSV trial as tolerated 04/01: Remains stable on the vent. Court hearing today, awaiting decision on appointed guardian by the [facility]. Continue current supportive measures and daily PSV trial as tolerated 04/02: MAIDA overnight. Stable on the vent. Awaiting on desicion on appointed guardian. Continue current supportive measures and daily PSV trial as tolerated. 04/03: Awaiting on desicion on appointed guardian. Continue current supportive measures and daily PSV trial as tolerated Neuro: Acute encephalopathy, h/o seizure disorder, Down syndrome, partial blindness -Intubated and off sedation -Reorientation as needed -Maintain sleep-wake cycle -aspiration/seizure precautions -As needed analgesia -CT head showed no acute abnormality -Continue Keppra Cardiac: Hypotension, h/o HTN, HLD -Cardiology consulted, appreciate recommendations -Blood pressure monitoring per protocol -d/c amlodipine -On PO Midodrine for hypotension Respiratory: Acute hypoxic respiratory failure, r/o bronchogenic carcinoma -CCM consulted, appreciate recommendations -Intubated on 02/24 with a 8.0 at 23 at the lips but extubated 02/28 -reintubated 02/28 with 8.0 OETT -Vent settings: AC rate 14, TV 360, PEEP 6, FO2 30% -See RT notes for titration -VAP bundle -SPO2 monitoring -02/18 CTA chest showed no evidence of pulmonary embolism, suspected bronchogenic carcinoma with associated obstruction of the right lower lobe proximal bronchus segment, 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 adenopathy and suspected to left lower lobe metastatic nodule -02/26 Bronch->mucous, no lesion noted -02/27 CT chest showed right mainstem bronchus patent with small amount of interval bronchial fluid which may be mucus (this may account for the appearance of the prior CTA chest fluid-filled airway rather than entering bronchial lesion), previously seen complete left lower lobe since related to bronchial occlusion has significantly improved, there is persistent compressive atelectasis in the right lower lung secondary to the pleural effusion, bilateral pleural effusions, right lung pneumonia -CT neck showed no acute changes - IV Steroids stopped GI: Moderate protein calorie malnutrition -PPI -NTR consulted for tube feedings -BR: Senokot S : Hypernatremia (resolved) -FWF q4 hr -Monitor intake and output -Renally dose medications -Avoid nephrotoxic medications -Trend BMP ID: UTI, Aspiration PNA (resolved), sacral wound (POA) -UA with pyuria, mod LE with leukocytosis -WOCN consulted -Dressing changes per nursing -S/p Rocephin for 5 days (02/19-02/24) -Current abx therapy: rocephin for 3 days -Monitor WBC and temperature curve Endo: NAD -Avoid hypoglycemia -Accu-Cheks every 6 -Avoid hypoglycemia Heme: NAD -Trend CBC -Transfuse hemoglobin less than 7 -SCDs to BLE while in bed The high probability of a clinically significant, sudden or life threatening deterioration of the [resp] system(s) required my full and direct attention, intervention and personal management. The aggregate critical care time was [60] minutes. This time is in addition to time spent performing reported procedures but includes the following: [x] Data Review and interpretation [x] Patient assessment and monitoring of vital signs [x] Documentation [x] Medication orders and management Disposition Plan: ICU Total Time Spent with Patient (Minutes): 60 History Interval history: Patient seen and examined at the bedside. Remains stable on low vent setting. SR on the monitor this am, VSS. MAIDA overnight Hospitalist Physical - Physical exam Narrative exam: General appearance: Present: no acute distress, well-nourished, obese - EENT Eyes: Present: PERRL - Neck Neck: Present: normal ROM - Respiratory Respiratory effort: normal Respiratory: bilateral: rhonchi - Cardiovascular Rhythm: regular Heart Sounds: Present: S1 & S2 - Extremities Extremities: no ischemia, pulses intact, pulses symmetrical Extremity abnormal: edema - Peripheral Assessment Generalized Edema Type: Non-pitting Edema Degree: 1+ Capillary Refill: < 3 seconds Skin Temperature: Warm Peripheral Pulses: within normal limits - Abdominal General gastrointestinal: soft, non-distended, normal bowel sounds - Integumentary Integumentary: Present: warm, dry - Psychiatric Psychiatric: other (Intubated, unresponsive. Not on any sedations) - Neurologic Neurologic: moves all extremities, other (Intubated, unresponsive. Not on any sedations) - Allied Health Allied health notes reviewed: nursing, case management - Constitutional Vitals: Temp Pulse Resp BP Pulse Ox 98.0 F 90 18 109/73 95 04/03/22 08:00 04/03/22 11:00 04/03/22 11:00 04/03/22 11:00 04/03/22 11:00 HEART Score - HEART Score Troponin: Troponin T < 0.010 ng/mL (0.00-0.029) 02/18/22 21:02 Results - Labs CBC & Chem 7: 04/03/22 04:04 04/03/22 04:04 Labs: Laboratory Last Values WBC 6.7 K/mm3 (4.5-11.0) 04/03/22 04:04 RBC 3.85 M/mm3 (3.65-5.03) 04/03/22 04:04 Hgb 11.9 gm/dl (11.8-15.2) 04/03/22 04:04 Hct 37.6 % (35.5-45.6) 04/03/22 04:04 MCV 98 fl (84-94) H 04/03/22 04:04 MCH 31 pg (28-32) 04/03/22 04:04 MCHC 32 % (32-34) 04/03/22 04:04 RDW 17.9 % (13.2-15.2) H 04/03/22 04:04 Plt Count 378 K/mm3 (140-440) 04/03/22 04:04 Lymph % (Auto) 7.5 % (13.4-35.0) L 03/28/22 04:06 Caroline % (Auto) 10.5 % (0.0-7.3) H 03/28/22 04:06 Eos % (Auto) 0.9 % (0.0-4.3) 03/28/22 04:06 Baso % (Auto) 0.4 % (0.0-1.8) 03/28/22 04:06 Lymph # (Auto) 1.1 K/mm3 (1.2-5.4) L 03/28/22 04:06 Caroline # (Auto) 1.5 K/mm3 (0.0-0.8) H 03/28/22 04:06 Eos # (Auto) 0.1 K/mm3 (0.0-0.4) 03/28/22 04:06 Baso # (Auto) 0.1 K/mm3 (0.0-0.1) 03/28/22 04:06 Add Manual Diff Complete 03/03/22 03:54 Total Counted 100 03/03/22 03:54 Seg Neutrophils % 80.7 % (40.0-70.0) H 03/28/22 04:06 Seg Neuts % (Manual) 95.0 % (40.0-70.0) H 03/03/22 03:54 Band Neutrophils % 0 % 03/03/22 03:54 Lymphocytes % (Manual) 3.0 % (13.4-35.0) L 03/03/22 03:54 Reactive Lymphs % (Man) 0 % 03/03/22 03:54 Monocytes % (Manual) 2.0 % (0.0-7.3) 03/03/22 03:54 Eosinophils % (Manual) 0 % (0.0-4.3) 03/03/22 03:54 Basophils % (Manual) 0 % (0.0-1.8) 03/03/22 03:54 Metamyelocytes % 0 % 03/03/22 03:54 Myelocytes % 0 % 03/03/22 03:54 Promyelocytes % 0 % 03/03/22 03:54 Blast Cells % 0 % 03/03/22 03:54 Nucleated RBC % Not Reportable 03/03/22 03:54 Seg Neutrophils # 11.4 K/mm3 (1.8-7.7) H 03/28/22 04:06 Seg Neutrophils # Man 18.5 K/mm3 (1.8-7.7) H 03/03/22 03:54 Band Neutrophils # 0.0 K/mm3 03/03/22 03:54 Lymphocytes # (Manual) 0.6 K/mm3 (1.2-5.4) L 03/03/22 03:54 Abs React Lymphs (Man) 0.0 K/mm3 03/03/22 03:54 Monocytes # (Manual) 0.4 K/mm3 (0.0-0.8) 03/03/22 03:54 Eosinophils # (Manual) 0.0 K/mm3 (0.0-0.4) 03/03/22 03:54 Basophils # (Manual) 0.0 K/mm3 (0.0-0.1) 03/03/22 03:54 Metamyelocytes # 0.0 K/mm3 03/03/22 03:54 Myelocytes # 0.0 K/mm3 03/03/22 03:54 Promyelocytes # 0.0 K/mm3 03/03/22 03:54 Blast Cells # 0.0 K/mm3 03/03/22 03:54 WBC Morphology Not Reportable 03/03/22 03:54 Hypersegmented Neuts Not Reportable 03/03/22 03:54 Hyposegmented Neuts Not Reportable 03/03/22 03:54 Hypogranular Neuts Not Reportable 03/03/22 03:54 Smudge Cells Not Reportable 03/03/22 03:54 Toxic Granulation Not Reportable 03/03/22 03:54 Toxic Vacuolation Not Reportable 03/03/22 03:54 Dohle Bodies Not Reportable 03/03/22 03:54 Pelger-Huet Anomaly Not Reportable 03/03/22 03:54 Lakshmi Rods Not Reportable 03/03/22 03:54 Platelet Estimate Consistent w auto 03/03/22 03:54 Clumped Platelets Not Reportable 03/03/22 03:54 Plt Clumps, EDTA Not Reportable 03/03/22 03:54 Large Platelets Not Reportable 03/03/22 03:54 Giant Platelets Not Reportable 03/03/22 03:54 Platelet Satelliting Not Reportable 03/03/22 03:54 Plt Morphology Comment Not Reportable 03/03/22 03:54 RBC Morphology Not Reportable 03/03/22 03:54 Dimorphic RBCs Not Reportable 03/03/22 03:54 Polychromasia Not Reportable 03/03/22 03:54 Hypochromasia Not Reportable 03/03/22 03:54 Poikilocytosis Not Reportable 03/03/22 03:54 Anisocytosis 1+ 03/03/22 03:54 Microcytosis Not Reportable 03/03/22 03:54 Macrocytosis Not Reportable 03/03/22 03:54 Spherocytes Not Reportable 03/03/22 03:54 Pappenheimer Bodies Not Reportable 03/03/22 03:54 Sickle Cells Not Reportable 03/03/22 03:54 Target Cells Not Reportable 03/03/22 03:54 Tear Drop Cells Not Reportable 03/03/22 03:54 Ovalocytes Not Reportable 03/03/22 03:54 Helmet Cells Not Reportable 03/03/22 03:54 Orellana-Dryden Bodies Not Reportable 03/03/22 03:54 [place] Rings Not Reportable 03/03/22 03:54 [place] Cells Not Reportable 03/03/22 03:54 Bite Cells Not Reportable 03/03/22 03:54 Crenated Cell Not Reportable 03/03/22 03:54 Elliptocytes Not Reportable 03/03/22 03:54 Acanthocytes (Spur) Not Reportable 03/03/22 03:54 Rouleaux Not Reportable 03/03/22 03:54 Hemoglobin C Crystals Not Reportable 03/03/22 03:54 Schistocytes Not Reportable 03/03/22 03:54 Malaria parasites Not Reportable 03/03/22 03:54 Cash Bodies Not Reportable 03/03/22 03:54 Hem Pathologist Commnt No 03/03/22 03:54 PT 15.2 Sec. (12.2-14.9) H 04/03/22 04:04 INR 1.05 (0.87-1.13) 04/03/22 04:04 APTT 33.4 Sec. (24.2-36.6) 04/03/22 04:04 ABG pH 7.392 pH Units (7.350-7.450) 03/22/22 14:25 ABG pCO2 54.4 mm Hg 03/22/22 14:25 ABG pO2 150.5 mm Hg (80.0-90.0) H 03/22/22 14:25 ABG HCO3 32.4 mmol/L (20.0-26.0) H 03/22/22 14:25 ABG O2 Saturation 98.8 % (95.0-99.0) 03/22/22 14:25 ABG O2 Content 15.8 (0.0-44) 03/22/22 14:25 ABG Base Excess 6.2 mmol/L (-2.0-3.0) H 03/22/22 14:25 ABG Hemoglobin 11.4 gm/dl (14.0-18.0) L 03/22/22 14:25 ABG Carboxyhemoglobin 1.6 % (0.0-5.0) 03/22/22 14:25 ABG Methemoglobin 0.6 % (0.0-1.5) 03/22/22 14:25 Oxyhemoglobin 96.6 % (95.0-99.0) 03/22/22 14:25 FiO2 30 % 03/22/22 14:25 Sodium 136 mmol/L (137-145) L 04/03/22 04:04 Potassium 5.0 mmol/L (3.6-5.0) 04/03/22 04:04 Chloride 97.1 mmol/L (98-107) L 04/03/22 04:04 Carbon Dioxide 30 mmol/L (22-30) 04/03/22 04:04 Anion Gap 14 mmol/L 04/03/22 04:04 BUN 20 mg/dL (9-20) 04/03/22 04:04 Creatinine 0.6 mg/dL (0.8-1.3) L 04/03/22 04:04 Estimated GFR > 60 ml/min 04/03/22 04:04 BUN/Creatinine Ratio 33 % 04/03/22 04:04 Glucose 91 mg/dL (75-100) 04/03/22 04:04 POC Glucose 117 mg/dL (70-105) H 04/03/22 11:40 Lactic Acid 1.20 mmol/L (0.7-2.0) 02/18/22 21:02 Calcium 9.1 mg/dL (8.4-10.2) 04/03/22 04:04 Phosphorus 4.90 mg/dL (2.5-4.5) H 04/03/22 04:04 Magnesium 2.00 mg/dL (1.7-2.3) 04/03/22 04:04 Total Bilirubin 0.30 mg/dL (0.1-1.2) 03/10/22 03:57 AST 17 units/L (5-40) 03/10/22 03:57 ALT 18 units/L (7-56) 03/10/22 03:57 Alkaline Phosphatase 89 units/L (35-129) 03/10/22 03:57 Ammonia 14.0 umol/L (25-60) L 02/18/22 23:22 Troponin T < 0.010 ng/mL (0.00-0.029) 02/18/22 21:02 Total Protein 6.6 g/dL (6.3-8.2) 03/10/22 03:57 Albumin 1.9 g/dL (3.9-5) L 03/10/22 03:57 Albumin/Globulin Ratio 0.4 % 03/10/22 03:57 Urine Color Yellow (Yellow) 03/27/22 08:36 Urine Turbidity Cloudy (Clear) 03/27/22 08:36 Urine pH 7.0 (5.0-7.0) 02/18/22 Unknown Ur Specific [place] 1.015 (1.003-1.030) 02/18/22 Unknown Specific [place] (Man) 1.020 (1.003-1.030) 03/27/22 08:36 Urine Protein <15 mg/dl mg/dL (Negative) 02/18/22 Unknown Ur Protein (Man) 1+ mg/dL (Negative) 03/27/22 08:36 Urine Glucose (UA) Negative mg/dL (Negative) 02/18/22 Unknown Urine Ketones Negative mg/dL (Negative) 02/18/22 Unknown Ur Ketones (Man) Negative (Negative) 03/27/22 08:36 Urine Blood Trace (Negative) 02/18/22 Unknown Urine Nitrite Negative (Negative) 02/18/22 Unknown Ur Nitrite (Man) Negative (Negative) 03/27/22 08:36 Ur Reducing Substances Not Reportable 03/27/22 08:36 Urine Bilirubin Negative (Negative) 02/18/22 Unknown Urine Bilirubin (Man) Negative (Negative) 03/27/22 08:36 Urine Ictotest Not Reportable 03/27/22 08:36 Urine Urobilinogen < 2.0 mg/dL (<2.0) 02/18/22 Unknown Ur Leukocyte Esterase Negative (Negative) 02/18/22 Unknown Leukocyte Esterase (Man) Moderate (Negative) 03/27/22 08:36 Urine WBC (Auto) > 182.0 /HPF (0.0-6.0) H 03/27/22 08:36 Urine RBC (Auto) 9.0 /HPF (0.0-6.0) 03/27/22 08:36 U Epithel Cells (Auto) < 1.0 /HPF (0-13.0) 03/27/22 08:36 Urine RBC (Manual) 1+ (Negative) 03/27/22 08:36 Urine Mucus Few /HPF 03/27/22 08:36 Urine Yeast (Budding) 2+ /HPF 03/27/22 08:36 Urine Opiates Screen Negative 02/18/22 Unknown Urine Methadone Screen Negative 02/18/22 Unknown Ur Barbiturates Screen Negative 02/18/22 Unknown Ur Phencyclidine Scrn Negative 02/18/22 Unknown Ur Amphetamines Screen Negative 02/18/22 Unknown U Benzodiazepines Scrn Negative 02/18/22 Unknown Urine Cocaine Screen Negative 02/18/22 Unknown U Marijuana (THC) Screen Negative 02/18/22 Unknown Drugs of Abuse Note Disclamer 02/18/22 Unknown Plasma/Serum Alcohol < 0.01 % (0-0.07) 02/18/22 21:02 Summers/IV: Voiding Method Indwelling Catheter Active Medications - Current Medications Current Medications: Generic Name Dose Route Start Last Admin Trade Name Freq PRN Reason Stop Dose Admin Acetaminophen 650 mg 03/03/22 09:00 Acetaminophen 325 Mg/10.15 Ml Oral Liqd Unit Dose FEEDTUBE Q4H PRN Pain, Mild (1-3); TEMP > 100.4 Albuterol 2.5 mg 03/12/22 20:00 04/03/22 08:13 Albuterol 2.5 Mg/3 Ml Nebu IH 2.5 mg Q6HRT LAZARUS Administration Famotidine 20 mg 02/25/22 10:00 04/03/22 10:35 Famotidine 20 Mg Tab FEEDTUBE 20 mg BID LAZARUS Administration Heparin Sodium (Porcine) 5,000 unit 02/19/22 06:00 04/03/22 06:24 Heparin 5,000 Unit/1 Ml Vial SUB-Q 5,000 unit Q8HR LAZARUS Administration Levetiracetam 500 mg 02/25/22 22:00 04/03/22 10:35 Levetiracetam 500 Mg/5 Ml Oral Liqd FEEDTUBE 500 mg BID LAZARUS Administration Levothyroxine Sodium 25 mcg 02/26/22 06:00 04/03/22 06:23 Levothyroxine 25 Mcg Tab FEEDTUBE 25 mcg QAM@0600 LAZARUS Administration Magnesium Hydroxide 30 ml 02/19/22 02:02 04/03/22 04:14 Magnesium Hydroxide (Mom) Oral Liqd Udc PO 30 ml Q4H PRN Administration Constipation Midodrine 5 mg 04/03/22 12:00 Midodrine 5 Mg Tab FEEDTUBE TID@0800,1200,1600 [facility] Multi-Ingred Cream/Lotion/Oil/Oint 1 applic 02/24/22 15:05 Mineral Oil/Petrolatum, White Ophth Oint 3.5 Gm OU Q4HR PRN Dry Eye(s) Ondansetron HCl 4 mg 02/19/22 02:02 Ondansetron 4 Mg/2 Ml Inj IV Q8H PRN Nausea And Vomiting Pravastatin Sodium 40 mg 02/25/22 22:00 04/02/22 21:12 Pravastatin 40 Mg Tab FEEDTUBE 40 mg QHS LAZARUS Administration Senna/Docusate Sodium 1 tab 02/24/22 22:00 04/03/22 10:35 Sennosides/Docusate Sodium 8.6/50 Mg Tab FEEDTUBE 1 tab BID LAZARUS Administration Sodium Chloride 10 ml 02/19/22 10:00 04/03/22 10:36 Sodium Chloride 0.9% 10 Ml Flush Syringe IV 10 ml BID LAZARUS Administration Sodium Chloride 10 ml 02/19/22 02:02 03/03/22 14:21 Sodium Chloride 0.9% 10 Ml Flush Syringe IV 10 ml PRN PRN Administration LINE FLUSH Nutrition/Malnutrition Assess - Dietary Evaluation Nutrition/Malnutrition Findings: Nutrition Notes Start: 02/19/22 14:29 Freq: Status: Active Protocol: Document 03/31/22 14:18 IVAN (Rec: 03/31/22 14:23 [facility] [id number]) Nutrition Notes Initial or Follow up Reassessment Current Diagnosis Hypertension,Respiratory Failure,Hyperlipidemia Other Pertinent Diagnosis Asp pneu, acute encephalopathy , seizure d/o, partial blindness Current Diet TF - Promote at 65ml/hr Labs/Tests Na 135 CO2 - 31 Pertinent Medications Reviewed Height 5 ft 3 in Weight 63.2 kg [place] Body Weight (kg) 56.36 BMI 24.7 Subjective/Other Information Pt remains on vent support; still awaiting decision on guardianship for trach/PEG placement. Observed Promote infusing at 50ml/hr; RN informed of goal rate. BM x 1 on yesterday. Percent of energy/protein needs met: 75% energy 99% pro Burn Absent Trauma Absent #1 Nutrition Diagnosis Inadequate oral intake Diagnosis Progress(for reassessment Continues documentation) Is patient on ventilator? Yes Is Patient Ambulatory and/or Out of Bed No REE-([facility]-confined to bed) [phone] Calculation Used for Recommendations [facility] Additional Notes Pro needs 1.2-2g/k-126g/ day Fluid needs 1ml/kcal Nutrition Intervention Nutrition Support: Continue Promote to goal rate of 65ml/hr. Provide 50ml water flush q4h. Kcal 1,560 Protein (gm) 98 Carbohydrates (gm) 203 Fat (gm) 41 Fluid (mL) 1,309 Fiber (gm) 0 Goal #1 TF tolerance Goal #2 TF to meet 75%-100% energy and pro needs Goal #3 Wound healing Follow-Up By: 04/04/22 Additional Comments F/U: TF goal rate/tolerance <JOAQUIN ROBIN - Last Filed: 04/04/22 07:38> Assessment and Plan Assessment and plan: I saw and evaluated the patient. I agree with the findings and the plan of care as documented in the Nurse Practitioner's~note, with the following corrections and additions. Hospitalist Physical - Constitutional Vitals: Temp Pulse Resp BP Pulse Ox 98.7 F 83 15 116/67 95 04/04/22 04:00 04/04/22 07:00 04/04/22 07:00 04/04/22 07:00 04/04/22 07:00 HEART Score - HEART Score Troponin: Troponin T < 0.010 ng/mL (0.00-0.029) 02/18/22 21:02 Results - Labs CBC & Chem 7: 04/03/22 04:04 04/03/22 04:04 Labs: Laboratory Last Values WBC 6.7 K/mm3 (4.5-11.0) 04/03/22 04:04 RBC 3.85 M/mm3 (3.65-5.03) 04/03/22 04:04 Hgb 11.9 gm/dl (11.8-15.2) 04/03/22 04:04 Hct 37.6 % (35.5-45.6) 04/03/22 04:04 MCV 98 fl (84-94) H 04/03/22 04:04 MCH 31 pg (28-32) 04/03/22 04:04 MCHC 32 % (32-34) 04/03/22 04:04 RDW 17.9 % (13.2-15.2) H 04/03/22 04:04 Plt Count 378 K/mm3 (140-440) 04/03/22 04:04 Lymph % (Auto) 7.5 % (13.4-35.0) L 03/28/22 04:06 Caroline % (Auto) 10.5 % (0.0-7.3) H 03/28/22 04:06 Eos % (Auto) 0.9 % (0.0-4.3) 03/28/22 04:06 Baso % (Auto) 0.4 % (0.0-1.8) 03/28/22 04:06 Lymph # (Auto) 1.1 K/mm3 (1.2-5.4) L 03/28/22 04:06 Caroline # (Auto) 1.5 K/mm3 (0.0-0.8) H 03/28/22 04:06 Eos # (Auto) 0.1 K/mm3 (0.0-0.4) 03/28/22 04:06 Baso # (Auto) 0.1 K/mm3 (0.0-0.1) 03/28/22 04:06 Add Manual Diff Complete 03/03/22 03:54 Total Counted 100 03/03/22 03:54 Seg Neutrophils % 80.7 % (40.0-70.0) H 03/28/22 04:06 Seg Neuts % (Manual) 95.0 % (40.0-70.0) H 03/03/22 03:54 Band Neutrophils % 0 % 03/03/22 03:54 Lymphocytes % (Manual) 3.0 % (13.4-35.0) L 03/03/22 03:54 Reactive Lymphs % (Man) 0 % 03/03/22 03:54 Monocytes % (Manual) 2.0 % (0.0-7.3) 03/03/22 03:54 Eosinophils % (Manual) 0 % (0.0-4.3) 03/03/22 03:54 Basophils % (Manual) 0 % (0.0-1.8) 03/03/22 03:54 Metamyelocytes % 0 % 03/03/22 03:54 Myelocytes % 0 % 03/03/22 03:54 Promyelocytes % 0 % 03/03/22 03:54 Blast Cells % 0 % 03/03/22 03:54 Nucleated RBC % Not Reportable 03/03/22 03:54 Seg Neutrophils # 11.4 K/mm3 (1.8-7.7) H 03/28/22 04:06 Seg Neutrophils # Man 18.5 K/mm3 (1.8-7.7) H 03/03/22 03:54 Band Neutrophils # 0.0 K/mm3 03/03/22 03:54 Lymphocytes # (Manual) 0.6 K/mm3 (1.2-5.4) L 03/03/22 03:54 Abs React Lymphs (Man) 0.0 K/mm3 03/03/22 03:54 Monocytes # (Manual) 0.4 K/mm3 (0.0-0.8) 03/03/22 03:54 Eosinophils # (Manual) 0.0 K/mm3 (0.0-0.4) 03/03/22 03:54 Basophils # (Manual) 0.0 K/mm3 (0.0-0.1) 03/03/22 03:54 Metamyelocytes # 0.0 K/mm3 03/03/22 03:54 Myelocytes # 0.0 K/mm3 03/03/22 03:54 Promyelocytes # 0.0 K/mm3 03/03/22 03:54 Blast Cells # 0.0 K/mm3 03/03/22 03:54 WBC Morphology Not Reportable 03/03/22 03:54 Hypersegmented Neuts Not Reportable 03/03/22 03:54 Hyposegmented Neuts Not Reportable 03/03/22 03:54 Hypogranular Neuts Not Reportable 03/03/22 03:54 Smudge Cells Not Reportable 03/03/22 03:54 Toxic Granulation Not Reportable 03/03/22 03:54 Toxic Vacuolation Not Reportable 03/03/22 03:54 Dohle Bodies Not Reportable 03/03/22 03:54 Pelger-Huet Anomaly Not Reportable 03/03/22 03:54 Lakshmi Rods Not Reportable 03/03/22 03:54 Platelet Estimate Consistent w auto 03/03/22 03:54 Clumped Platelets Not Reportable 03/03/22 03:54 Plt Clumps, EDTA Not Reportable 03/03/22 03:54 Large Platelets Not Reportable 03/03/22 03:54 Giant Platelets Not Reportable 03/03/22 03:54 Platelet Satelliting Not Reportable 03/03/22 03:54 Plt Morphology Comment Not Reportable 03/03/22 03:54 RBC Morphology Not Reportable 03/03/22 03:54 Dimorphic RBCs Not Reportable 03/03/22 03:54 Polychromasia Not Reportable 03/03/22 03:54 Hypochromasia Not Reportable 03/03/22 03:54 Poikilocytosis Not Reportable 03/03/22 03:54 Anisocytosis 1+ 03/03/22 03:54 Microcytosis Not Reportable 03/03/22 03:54 Macrocytosis Not Reportable 03/03/22 03:54 Spherocytes Not Reportable 03/03/22 03:54 Pappenheimer Bodies Not Reportable 03/03/22 03:54 Sickle Cells Not Reportable 03/03/22 03:54 Target Cells Not Reportable 03/03/22 03:54 Tear Drop Cells Not Reportable 03/03/22 03:54 Ovalocytes Not Reportable 03/03/22 03:54 Helmet Cells Not Reportable 03/03/22 03:54 Orell[place]-Dryden Bodies Not Reportable 03/03/22 03:54 [place] Rings Not Reportable 03/03/22 03:54 [place] Cells Not Reportable 03/03/22 03:54 Bite Cells Not Reportable 03/03/22 03:54 Crenated Cell Not Reportable 03/03/22 03:54 Elliptocytes Not Reportable 03/03/22 03:54 Acanthocytes (Spur) Not Reportable 03/03/22 03:54 Rouleaux Not Reportable 03/03/22 03:54 Hemoglobin C Crystals Not Reportable 03/03/22 03:54 Schistocytes Not Reportable 03/03/22 03:54 Malaria parasites Not Reportable 03/03/22 03:54 Cash Bodies Not Reportable 03/03/22 03:54 Hem Pathologist Commnt No 03/03/22 03:54 PT 15.2 Sec. (12.2-14.9) H 04/03/22 04:04 INR 1.05 (0.87-1.13) 04/03/22 04:04 APTT 33.4 Sec. (24.2-36.6) 04/03/22 04:04 ABG pH 7.392 pH Units (7.350-7.450) 03/22/22 14:25 ABG pCO2 54.4 mm Hg 03/22/22 14:25 ABG pO2 150.5 mm Hg (80.0-90.0) H 03/22/22 14:25 ABG HCO3 32.4 mmol/L (20.0-26.0) H 03/22/22 14:25 ABG O2 Saturation 98.8 % (95.0-99.0) 03/22/22 14:25 ABG O2 Content 15.8 (0.0-44) 03/22/22 14:25 ABG Base Excess 6.2 mmol/L (-2.0-3.0) H 03/22/22 14:25 ABG Hemoglobin 11.4 gm/dl (14.0-18.0) L 03/22/22 14:25 ABG Carboxyhemoglobin 1.6 % (0.0-5.0) 03/22/22 14:25 ABG Methemoglobin 0.6 % (0.0-1.5) 03/22/22 14:25 Oxyhemoglobin 96.6 % (95.0-99.0) 03/22/22 14:25 FiO2 30 % 03/22/22 14:25 Sodium 136 mmol/L (137-145) L 04/03/22 04:04 Potassium 5.0 mmol/L (3.6-5.0) 04/03/22 04:04 Chloride 97.1 mmol/L (98-107) L 04/03/22 04:04 Carbon Dioxide 30 mmol/L (22-30) 04/03/22 04:04 Anion Gap 14 mmol/L 04/03/22 04:04 BUN 20 mg/dL (9-20) 04/03/22 04:04 Creatinine 0.6 mg/dL (0.8-1.3) L 04/03/22 04:04 Estimated GFR > 60 ml/min 04/03/22 04:04 BUN/Creatinine Ratio 33 % 04/03/22 04:04 Glucose 91 mg/dL (75-100) 04/03/22 04:04 POC Glucose 107 mg/dL (70-105) H 04/03/22 17:21 Lactic Acid 1.20 mmol/L (0.7-2.0) 02/18/22 21:02 Calcium 9.1 mg/dL (8.4-10.2) 04/03/22 04:04 Phosphorus 4.90 mg/dL (2.5-4.5) H 04/03/22 04:04 Magnesium 2.00 mg/dL (1.7-2.3) 04/03/22 04:04 Total Bilirubin 0.30 mg/dL (0.1-1.2) 03/10/22 03:57 AST 17 units/L (5-40) 03/10/22 03:57 ALT 18 units/L (7-56) 03/10/22 03:57 Alkaline Phosphatase 89 units/L (35-129) 03/10/22 03:57 Ammonia 14.0 umol/L (25-60) L 02/18/22 23:22 Troponin T < 0.010 ng/mL (0.00-0.029) 02/18/22 21:02 Total Protein 6.6 g/dL (6.3-8.2) 03/10/22 03:57 Albumin 1.9 g/dL (3.9-5) L 03/10/22 03:57 Albumin/Globulin Ratio 0.4 % 03/10/22 03:57 Urine Color Yellow (Yellow) 03/27/22 08:36 Urine Turbidity Cloudy (Clear) 03/27/22 08:36 Urine pH 7.0 (5.0-7.0) 02/18/22 Unknown Ur Specific [place] 1.015 (1.003-1.030) 02/18/22 Unknown Specific [place] (Man) 1.020 (1.003-1.030) 03/27/22 08:36 Urine Protein <15 mg/dl mg/dL (Negative) 02/18/22 Unknown Ur Protein (Man) 1+ mg/dL (Negative) 03/27/22 08:36 Urine Glucose (UA) Negative mg/dL (Negative) 02/18/22 Unknown Urine Ketones Negative mg/dL (Negative) 02/18/22 Unknown Ur Ketones (Man) Negative (Negative) 03/27/22 08:36 Urine Blood Trace (Negative) 02/18/22 Unknown Urine Nitrite Negative (Negative) 02/18/22 Unknown Ur Nitrite (Man) Negative (Negative) 03/27/22 08:36 Ur Reducing Substances Not Reportable 03/27/22 08:36 Urine Bilirubin Negative (Negative) 02/18/22 Unknown Urine Bilirubin (Man) Negative (Negative) 03/27/22 08:36 Urine Ictotest Not Reportable 03/27/22 08:36 Urine Urobilinogen < 2.0 mg/dL (<2.0) 02/18/22 Unknown Ur Leukocyte Esterase Negative (Negative) 02/18/22 Unknown Leukocyte Esterase (Man) Moderate (Negative) 03/27/22 08:36 Urine WBC (Auto) > 182.0 /HPF (0.0-6.0) H 03/27/22 08:36 Urine RBC (Auto) 9.0 /HPF (0.0-6.0) 03/27/22 08:36 U Epithel Cells (Auto) < 1.0 /HPF (0-13.0) 03/27/22 08:36 Urine RBC (Manual) 1+ (Negative) 03/27/22 08:36 Urine Mucus Few /HPF 03/27/22 08:36 Urine Yeast (Budding) 2+ /HPF 03/27/22 08:36 Urine Opiates Screen Negative 02/18/22 Unknown Urine Methadone Screen Negative 02/18/22 Unknown Ur Barbiturates Screen Negative 02/18/22 Unknown Ur Phencyclidine Scrn Negative 02/18/22 Unknown Ur Amphetamines Screen Negative 02/18/22 Unknown U Benzodiazepines Scrn Negative 02/18/22 Unknown Urine Cocaine Screen Negative 02/18/22 Unknown U Marijuana (THC) Screen Negative 02/18/22 Unknown Drugs of Abuse Note Disclamer 02/18/22 Unknown Plasma/Serum Alcohol < 0.01 % (0-0.07) 02/18/22 21:02 Summers/IV: Voiding Method Indwelling Catheter Active Medications - Current Medications Current Medications: Generic Name Dose Route Start Last Admin Trade Name Freq PRN Reason Stop Dose Admin Acetaminophen 650 mg 03/03/22 09:00 Acetaminophen 325 Mg/10.15 Ml Oral Liqd Unit Dose FEEDTUBE Q4H PRN Pain, Mild (1-3); TEMP > 100.4 Albuterol 2.5 mg 03/12/22 20:00 04/04/22 01:15 Albuterol 2.5 Mg/3 Ml Nebu IH 2.5 mg Q6HRT LAZARUS Administration Famotidine 20 mg 02/25/22 10:00 04/03/22 21:34 Famotidine 20 Mg Tab FEEDTUBE 20 mg BID LAZARUS Administration Heparin Sodium (Porcine) 5,000 unit 02/19/22 06:00 04/04/22 06:21 Heparin 5,000 Unit/1 Ml Vial SUB-Q 5,000 unit Q8HR LAZARUS Administration Levetiracetam 500 mg 02/25/22 22:00 04/03/22 21:33 Levetiracetam 500 Mg/5 Ml Oral Liqd FEEDTUBE 500 mg BID LAZARUS Administration Levothyroxine Sodium 25 mcg 02/26/22 06:00 04/04/22 06:21 Levothyroxine 25 Mcg Tab FEEDTUBE 25 mcg QAM@0600 LAZARUS Administration Magnesium Hydroxide 30 ml 02/19/22 02:02 04/03/22 04:14 Magnesium Hydroxide (Mom) Oral Liqd Udc PO 30 ml Q4H PRN Administration Constipation Midodrine 5 mg 04/03/22 12:00 04/04/22 07:22 Midodrine 5 Mg Tab FEEDTUBE 5 mg TID@0800,1200,1600 LAZARUS Administration Multi-Ingred Cream/Lotion/Oil/Oint 1 applic 02/24/22 15:05 Mineral Oil/Petrolatum, White Ophth Oint 3.5 Gm OU Q4HR PRN Dry Eye(s) Ondansetron HCl 4 mg 02/19/22 02:02 Ondansetron 4 Mg/2 Ml Inj IV Q8H PRN Nausea And Vomiting Pravastatin Sodium 40 mg 02/25/22 22:00 04/03/22 21:33 Pravastatin 40 Mg Tab FEEDTUBE 40 mg QHS LAZARUS Administration Senna/Docusate Sodium 1 tab 02/24/22 22:00 04/03/22 21:33 Sennosides/Docusate Sodium 8.6/50 Mg Tab FEEDTUBE 1 tab BID LAZARUS Administration Sodium Chloride 10 ml 02/19/22 10:00 04/03/22 21:34 Sodium Chloride 0.9% 10 Ml Flush Syringe IV 10 ml BID LAZARUS Administration Sodium Chloride 10 ml 02/19/22 02:02 03/03/22 14:21 Sodium Chloride 0.9% 10 Ml Flush Syringe IV 10 ml PRN PRN Administration LINE FLUSH Nutrition/Malnutrition Assess - Dietary Evaluation Nutrition/Malnutrition Findings: Nutrition Notes Start: 02/19/22 14:29 Freq: Status: Active Protocol: Document 03/31/22 14:18 IVAN (Rec: 03/31/22 14:23 IVAN [id number]) Nutrition Notes Initial or Follow up Reassessment Current Diagnosis Hypertension,Respiratory Failure,Hyperlipidemia Other Pertinent Diagnosis Asp pneu, acute encephalopathy , seizure d/o, partial blindness Current Diet TF - Promote at 65ml/hr Labs/Tests Na 135 CO2 - 31 Pertinent Medications Reviewed Height 5 ft 3 in Weight 63.2 kg [place] Body Weight (kg) 56.36 BMI 24.7 Subjective/Other Information Pt remains on vent support; still awaiting decision on guardianship for trach/PEG placement. Observed Promote infusing at 50ml/hr; RN informed of goal rate. BM x 1 on yesterday. Percent of energy/protein needs met: 75% energy 99% pro Burn Absent Trauma Absent #1 Nutrition Diagnosis Inadequate oral intake Diagnosis Progress(for reassessment Continues documentation) Is patient on ventilator? Yes Is Patient Ambulatory and/or Out of Bed No REE-([place]-St. Jeor-confined to bed) 3841.836 Calculation Used for Recommendations [place]-St Jeor Additional Notes Pro needs 1.2-2g/k-126g/ day Fluid needs 1ml/kcal Nutrition Intervention Nutrition Support: Continue Promote to goal rate of 65ml/hr. Provide 50ml water flush q4h. Kcal 1,560 Protein (gm) 98 Carbohydrates (gm) 203 Fat (gm) 41 Fluid (mL) 1,309 Fiber (gm) 0 Goal #1 TF tolerance Goal #2 TF to meet 75%-100% energy and pro needs Goal #3 Wound healing Follow-Up By: 04/04/22 Additional Comments F/U: TF goal rate/tolerance
[2022-04-03] MEDS: MIDODRINE 5 MG TAB FEEDTUBE SCH ×2 (12:13→16:56)
[2022-04-03] MEDS: PRAVASTATIN 40 MG TAB FEEDTUBE SCH (21:33)
[2022-04-04] MEDS: ALBUTEROL 2.5 MG/3 ML NEBU IH SCH ×4 (01:15→19:46)
[2022-04-04] MEDS: LEVOTHYROXINE 25 MCG TAB FEEDTUBE SCH (06:21)
[2022-04-04] MEDS: HEPARIN 5,000 UNIT/1 ML VIAL SUB-Q SCH ×3 (06:21→22:27)
[2022-04-04] MEDS: MIDODRINE 5 MG TAB FEEDTUBE SCH ×3 (07:22→16:41)
[2022-04-04] MEDS: FAMOTIDINE 20 MG TAB FEEDTUBE SCH ×2 (10:05→22:28)
[2022-04-04] MEDS: levETIRAcetam 500 MG/5 ML ORAL LIQD FEEDTUBE SCH ×2 (10:05→22:28)
[2022-04-04] MEDS: SENNOSIDES/DOCUSATE SODIUM 8.6/50 MG TAB FEEDTUBE SCH ×2 (10:05→22:28)
--- NOTE | 2022-04-04 11:11 | Progress Note ---
<KEATON GOLD - Last Filed: 04/04/22 17:32> Assessment and Plan Assessment and plan: This is a 51-year-old male with HTN, seizure disorder, Down syndrome, HLD, partial blindness admitted with aspiration pneumonia, probable bronchogenic carcinoma, acute hypoxic respiratory failure and acute encephalopathy Hospital course to date: 02/19/2022. Consult pulmonary for further evaluation and possible bronchoscopy. I suspect patient has component of aspiration pneumonia as well. We will obtain a speech therapy evaluation for swallowing and start empiric antibiotics. Continue O2 supplementation to maintain sats greater than 92%. 02/20/2022. Pulmonary feels that the abnormality seen on CT scan is highly unlikely for a mass given negative chest x-ray 1 month ago and no risk factors. Etiology is likely secondary to aspiration from possibly a foreign body most likely food with atelectasis of the right lower lobe. Bronchoscopy is needed in the case to evaluate to see if lung mass is there vs foreign body, but at this time not able to do because no identifiable person that is able to give consent. Continue aspiration precautions and continue speech therapy evaluation for swallowing. Keep n.p.o. for now 02/21/2022. Patient remains NPO. Consider DHT placement. Follow-up with speech therapy evaluation. Pulmonology to consider bronchoscopy if able to obtain consent. Continue IV antibiotics for aspiration pneumonia 02/22/2022. Patient remains NPO. Consider DHT placement. Follow-up with speech therapy evaluation. Pulmonology to consider bronchoscopy if able to obtain consent. Continue IV antibiotics for aspiration pneumonia 02/23/2022. DHT placed yesterday. TF initiated for nutritional support. Patient currently with strict NPO. Aspiration precautions. Pulmonology to consider bronchoscopy if able to obtain consent. Continue IV antibiotics for aspiration pneumonia 02/24: Patient was transferred to the ICU for further monitoring. This morning patient remained on high flow nasal cannula on 40 L/100% and despite repeated nasotracheal suctioning patient SPO2 remained in the 80s. Patient was placed on nonrebreather and SPO2 increased to upper 80s. Patient was subsequently intubated by anesthesia. Started on sedation. 02/25: Patient remains sedated on fentanyl, potassium and magnesium repleted. IV fluids and amlodipine discontinued. Possible bronchoscopy tomorrow. 02/26: Patient had a bronchoscopy today which showed mucus and no endobronchial lesions or masses. FiO2 was increased to 100 during and postprocedure weaning as tolerated. Repeat CXR is much improved after bronc. Given 1 L LR bolus due to hypotension. No acute events reported overnight. 02/27: Decreased PEEP, will repeat CT of chest. no acute changes overnight. 02/28: Patient was extubated today however had to be be intubated shortly after. Patient ETT looked mispositioned on x-ray and Dr. Alonzo did do a bedside bronc. Patient was briefly hypotensive and on Levophed postintubation however Levophed was quickly titrated off and patient did not require central line. No acute events reported overnight. Will obtain CT neck d/t difficulty intubating. Ethi committee consulted. 03/04: Overnight patient was hypotensive and started on IVF. Patient started on steroids as no air leak noted and hypotension and given 2 L LR 03/05: Overnight patient received bolus per RN report, no orders seen. Continue supportive care 03/03: SB on the monitor, HR as low as 37, VSS. Will continue to monitor for now. Awaiting on desicion from general acute hospital for possible trach and PEG. Continue daily air leak per [facility] 03/04: MAIDA overnight. Remains stable on the vent. Awaiting on desicion from general acute hospital for possible trach and PEG. Continue current supportive measures 03/05: MAIDA overnight. Awaiting on desicion from general acute hospital for possible trach and PEG. Midodrine held yesterday, HR improved. Continue current supportive measures. Daily PSV trial as tolerated per [facility] 03/06: Remains stable on the vent. Continue current supportive measures, daily PSV trial per [facility]. Awaiting on desicion for possible trach and PEG. 03/07: MAIDA overnight, remains stable. Continue daily PSV trial as tolerated. Awaiting on desicion for possible trach and PEG. 03/08: Patient failed PSV trial this am due to tachycardia and increase RR. Continue supportive measures and daily PSV trial as tolerated. [facility] and [facility] on Thursday in regards to medical necessity, may need to consider two physician consent if no one is able to claim responsibility for this patient. 03/09: MAIDA overnight. Continue current supportive measures and daily PSV trail as tolerated. Awaiting on desicion for possible trach and PEG, discussion with Ethics possibly tomorrow per [facility]. 03/10: no acute events overnight, PSV today. replete potassium. 03/11: No acute events reported overnight, patient failed PSV yesterday and will repeat today. Hospital to start guardianship process. 03/12: No acute events overnight. PSV today 03/13: Patient given 500ml normal saline and started on midodrine for h ypotension. No acute events reported overnight. Failed pressure support again this morning. 03/14: No acute events reported overnight, patient blood pressure seems better therefore midodrine discontinued. RT placed on CPAP need lasted for couple hours. Will remove summers 03/15: Midodrine was restarted yesterday evening for hypotension, Summers catheter not removed due to sacral ulcer and history of retention. Unable to crush Flomax and patient will not tolerate doxazosin given hypotension. Given LR bolus this morning. If blood pressure continues to be borderline after bolus, we will adjust management as needed. CPAP as tolerated 03/16: No acute events reported overnight, patient placed on CPAP trial this morning which he failed. 03/17: RT attempted PSV which he failed again today. No acute events reported overnight. 03/18: Awaiting ethic committee's decision on Trach/PEG. Patient tolerated PSV trial for over 3 hrs today, continue daily PSV trial as tolerated. 03/19: MAIDA overnight. Continue current supportive measures. Daily PSV trial as tolerated. Awaiting on desicion for possible trach and PEG. 03/20: MAIDA overnight. Daily PSV trial as tolerated. Awaiting decision on guardian ship for trach and PEG. 03/21: Remains stable, condition unchanged. Continue supportive measures and daily PSV trial as tolerated. 03/22: MAIDA overnight. Continue current supportive measures. Daily PSV trial as tolerated 03/23: MAIDA overnight, continue supportive measures and daily PSV trial as tolerated. 03/24: Condition unchanged. Still waiting on Ethics' decision for possible trach/Peg. Continue supportive measures and daily PSV trial as tolerated. 03/25: PSV attempt today, does open eyes to stimuli, no acute events overnight. 03/26: Yesterday evening Summers catheter was removed as he was due to be changed, condom cath placed. Overnight patient had good urine output and per RN repeated bladder scans showed less than 200 mL of urine. We will continue to monitor urine output. RT to attempt PSV 03/27: Patient has leukocytosis today and UA has pyuria with moderate LE therefore he will be started on antibiotics. 03/28: Leukocytosis improving. No acute events reported overnight. 03/29: No acute events overnight. Continue supportive care. 03/30: no acute events overnight, PSV again. 03/31: Condition unchanged, remains on low vent setting. Possible Ethics meeting today and tomorrow for possible guardianship. Will consult General Surgery for possible trach and Peg once guardianship decision has been made. Continue supportive measures and daily PSV trial as tolerated 04/01: Remains stable on the vent. Court hearing today, awaiting decision on appointed guardian by the [facility]. Continue current supportive measures and daily PSV trial as tolerated 04/02: MAIDA overnight. Stable on the vent. Awaiting on desicion on appointed guardian. Continue current supportive measures and daily PSV trial as tolerated. 04/03: Awaiting on desicion on appointed guardian. Continue current supportive measures and daily PSV trial as tolerated 04/04: Guardian appointed by the [facility]. Plan for possible trach and Peg by early next week. Continue current supportive measures and daily PSV trial as tolerated Neuro: Acute encephalopathy, h/o seizure disorder, Down syndrome, partial blindness -Intubated and off sedation -Reorientation as needed -Maintain sleep-wake cycle -aspiration/seizure precautions -As needed analgesia -CT head showed no acute abnormality -Continue Keppra Cardiac: Hypotension, h/o HTN, HLD -Cardiology consulted, appreciate recommendations -Blood pressure monitoring per protocol -d/c amlodipine -On PO Midodrine for hypotension Respiratory: Acute hypoxic respiratory failure, r/o bronchogenic carcinoma -[facility] consulted, appreciate recommendations -Intubated on 02/24 with a 8.0 at 23 at the lips but extubated 02/28 -reintubated 02/28 with 8.0 OETT -Vent settings: AC rate 14, TV 360, PEEP 6, FO2 30% -See RT notes for titration -VAP bundle -SPO2 monitoring -02/18 CTA chest showed no evidence of pulmonary embolism, suspected bronchogenic carcinoma with associated obstruction of the right lower lobe proximal bronchus segment, 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 adenopathy and suspected to left lower lobe metastatic nodule -02/26 Bronch->mucous, no lesion noted -02/27 CT chest showed right mainstem bronchus patent with small amount of interval bronchial fluid which may be mucus (this may account for the appearance of the prior CTA chest fluid-filled airway rather than entering bronchial lesion), previously seen complete left lower lobe since related to bronchial occlusion has significantly improved, there is persistent compressive atelectasis in the right lower lung secondary to the pleural effusion, bilateral pleural effusions, right lung pneumonia -CT neck showed no acute changes - IV Steroids stopped GI: Moderate protein calorie malnutrition -PPI -NTR consulted for tube feedings -BR: Senokot S : Hypernatremia (resolved) -FWF q4 hr -Monitor intake and output -Renally dose medications -Avoid nephrotoxic medications -Trend BMP ID: UTI, Aspiration PNA (resolved), sacral wound (POA) -UA with pyuria, mod LE with leukocytosis -WOCN consulted -Dressing changes per nursing -S/p Rocephin for 5 days (02/19-02/24) -Current abx therapy: rocephin for 3 days -Monitor WBC and temperature curve Endo: NAD -Avoid hypoglycemia -Accu-Cheks every 6 -Avoid hypoglycemia Heme: NAD -Trend CBC -Transfuse hemoglobin less than 7 -SCDs to BLE while in bed The high probability of a clinically significant, sudden or life threatening deterioration of the [resp] system(s) required my full and direct attention, intervention and personal management. The aggregate critical care time was [60] minutes. This time is in addition to time spent performing reported procedures but includes the following: [x] Data Review and interpretation [x] Patient assessment and monitoring of vital signs [x] Documentation [x] Medication orders and management Disposition Plan: ICU Total Time Spent with Patient (Minutes): 60 History Interval history: Patient seen and examined at the bedside. Remains stable on low vent setting. SR on the monitor this am, VSS. MAIDA overnight Hospitalist Physical - Physical exam Narrative exam: General appearance: Present: no acute distress, well-nourished, obese - EENT Eyes: Present: PERRL - Neck Neck: Present: normal ROM - Respiratory Respiratory effort: normal Respiratory: bilateral: rhonchi - Cardiovascular Rhythm: regular Heart Sounds: Present: S1 & S2 - Extremities Extremities: no ischemia, pulses intact, pulses symmetrical Extremity abnormal: edema - Peripheral Assessment Generalized Edema Type: Non-pitting Edema Degree: 1+ Capillary Refill: < 3 seconds Skin Temperature: Warm Peripheral Pulses: within normal limits - Abdominal General gastrointestinal: soft, non-distended, normal bowel sounds - Integumentary Integumentary: Present: warm, dry - Psychiatric Psychiatric: other (Intubated, unresponsive. Not on any sedations) - Neurologic Neurologic: moves all extremities, other (Intubated, unresponsive. Not on any sedations) - Allied Health Allied health notes reviewed: nursing, case management - Constitutional Vitals: Temp Pulse Resp BP Pulse Ox 99.1 F 75 14 108/66 96 04/04/22 08:00 04/04/22 09:00 04/04/22 09:00 04/04/22 09:00 04/04/22 09:00 HEART Score - HEART Score Troponin: Troponin T < 0.010 ng/mL (0.00-0.029) 02/18/22 21:02 Results - Labs CBC & Chem 7: 04/03/22 04:04 04/03/22 04:04 Labs: Laboratory Last Values WBC 6.7 K/mm3 (4.5-11.0) 04/03/22 04:04 RBC 3.85 M/mm3 (3.65-5.03) 04/03/22 04:04 Hgb 11.9 gm/dl (11.8-15.2) 04/03/22 04:04 Hct 37.6 % (35.5-45.6) 04/03/22 04:04 MCV 98 fl (84-94) H 04/03/22 04:04 MCH 31 pg (28-32) 04/03/22 04:04 MCHC 32 % (32-34) 04/03/22 04:04 RDW 17.9 % (13.2-15.2) H 04/03/22 04:04 Plt Count 378 K/mm3 (140-440) 04/03/22 04:04 Lymph % (Auto) 7.5 % (13.4-35.0) L 03/28/22 04:06 [place] % (Auto) 10.5 % (0.0-7.3) H 03/28/22 04:06 Eos % (Auto) 0.9 % (0.0-4.3) 03/28/22 04:06 Baso % (Auto) 0.4 % (0.0-1.8) 03/28/22 04:06 Lymph # (Auto) 1.1 K/mm3 (1.2-5.4) L 03/28/22 04:06 [place] # (Auto) 1.5 K/mm3 (0.0-0.8) H 03/28/22 04:06 Eos # (Auto) 0.1 K/mm3 (0.0-0.4) 03/28/22 04:06 Baso # (Auto) 0.1 K/mm3 (0.0-0.1) 03/28/22 04:06 Add Manual Diff Complete 03/03/22 03:54 Total Counted 100 03/03/22 03:54 Seg Neutrophils % 80.7 % (40.0-70.0) H 03/28/22 04:06 Seg Neuts % (Manual) 95.0 % (40.0-70.0) H 03/03/22 03:54 Band Neutrophils % 0 % 03/03/22 03:54 Lymphocytes % (Manual) 3.0 % (13.4-35.0) L 03/03/22 03:54 Reactive Lymphs % (Man) 0 % 03/03/22 03:54 Monocytes % (Manual) 2.0 % (0.0-7.3) 03/03/22 03:54 Eosinophils % (Manual) 0 % (0.0-4.3) 03/03/22 03:54 Basophils % (Manual) 0 % (0.0-1.8) 03/03/22 03:54 Metamyelocytes % 0 % 03/03/22 03:54 Myelocytes % 0 % 03/03/22 03:54 Promyelocytes % 0 % 03/03/22 03:54 Blast Cells % 0 % 03/03/22 03:54 Nucleated RBC % Not Reportable 03/03/22 03:54 Seg Neutrophils # 11.4 K/mm3 (1.8-7.7) H 03/28/22 04:06 Seg Neutrophils # Man 18.5 K/mm3 (1.8-7.7) H 03/03/22 03:54 Band Neutrophils # 0.0 K/mm3 03/03/22 03:54 Lymphocytes # (Manual) 0.6 K/mm3 (1.2-5.4) L 03/03/22 03:54 Abs React Lymphs (Man) 0.0 K/mm3 03/03/22 03:54 Monocytes # (Manual) 0.4 K/mm3 (0.0-0.8) 03/03/22 03:54 Eosinophils # (Manual) 0.0 K/mm3 (0.0-0.4) 03/03/22 03:54 Basophils # (Manual) 0.0 K/mm3 (0.0-0.1) 03/03/22 03:54 Metamyelocytes # 0.0 K/mm3 03/03/22 03:54 Myelocytes # 0.0 K/mm3 03/03/22 03:54 Promyelocytes # 0.0 K/mm3 03/03/22 03:54 Blast Cells # 0.0 K/mm3 03/03/22 03:54 WBC Morphology Not Reportable 03/03/22 03:54 Hypersegmented Neuts Not Reportable 03/03/22 03:54 Hyposegmented Neuts Not Reportable 03/03/22 03:54 Hypogranular Neuts Not Reportable 03/03/22 03:54 Smudge Cells Not Reportable 03/03/22 03:54 Toxic Granulation Not Reportable 03/03/22 03:54 Toxic Vacuolation Not Reportable 03/03/22 03:54 Dohle Bodies Not Reportable 03/03/22 03:54 Pelger-Huet Anomaly Not Reportable 03/03/22 03:54 Lakshmi Rods Not Reportable 03/03/22 03:54 Platelet Estimate Consistent w auto 03/03/22 03:54 Clumped Platelets Not Reportable 03/03/22 03:54 Plt Clumps, EDTA Not Reportable 03/03/22 03:54 Large Platelets Not Reportable 03/03/22 03:54 Giant Platelets Not Reportable 03/03/22 03:54 Platelet Satelliting Not Reportable 03/03/22 03:54 Plt Morphology Comment Not Reportable 03/03/22 03:54 RBC Morphology Not Reportable 03/03/22 03:54 Dimorphic RBCs Not Reportable 03/03/22 03:54 Polychromasia Not Reportable 03/03/22 03:54 Hypochromasia Not Reportable 03/03/22 03:54 Poikilocytosis Not Reportable 03/03/22 03:54 Anisocytosis 1+ 03/03/22 03:54 Microcytosis Not Reportable 03/03/22 03:54 Macrocytosis Not Reportable 03/03/22 03:54 Spherocytes Not Reportable 03/03/22 03:54 Pappenheimer Bodies Not Reportable 03/03/22 03:54 Sickle Cells Not Reportable 03/03/22 03:54 Target Cells Not Reportable 03/03/22 03:54 Tear Drop Cells Not Reportable 03/03/22 03:54 Ovalocytes Not Reportable 03/03/22 03:54 Helmet Cells Not Reportable 03/03/22 03:54 [place] Bodies Not Reportable 03/03/22 03:54 [place] Rings Not Reportable 03/03/22 03:54 [place] Cells Not Reportable 03/03/22 03:54 Bite Cells Not Reportable 03/03/22 03:54 Crenated Cell Not Reportable 03/03/22 03:54 Elliptocytes Not Reportable 03/03/22 03:54 Acanthocytes (Spur) Not Reportable 03/03/22 03:54 Rouleaux Not Reportable 03/03/22 03:54 Hemoglobin C Crystals Not Reportable 03/03/22 03:54 Schistocytes Not Reportable 03/03/22 03:54 Malaria parasites Not Reportable 03/03/22 03:54 Cash Bodies Not Reportable 03/03/22 03:54 Hem Pathologist Commnt No 03/03/22 03:54 PT 15.2 Sec. (12.2-14.9) H 04/03/22 04:04 INR 1.05 (0.87-1.13) 04/03/22 04:04 APTT 33.4 Sec. (24.2-36.6) 04/03/22 04:04 ABG pH 7.392 pH Units (7.350-7.450) 03/22/22 14:25 ABG pCO2 54.4 mm Hg 03/22/22 14:25 ABG pO2 150.5 mm Hg (80.0-90.0) H 03/22/22 14:25 ABG HCO3 32.4 mmol/L (20.0-26.0) H 03/22/22 14:25 ABG O2 Saturation 98.8 % (95.0-99.0) 03/22/22 14:25 ABG O2 Content 15.8 (0.0-44) 03/22/22 14:25 ABG Base Excess 6.2 mmol/L (-2.0-3.0) H 03/22/22 14:25 ABG Hemoglobin 11.4 gm/dl (14.0-18.0) L 03/22/22 14:25 ABG Carboxyhemoglobin 1.6 % (0.0-5.0) 03/22/22 14:25 ABG Methemoglobin 0.6 % (0.0-1.5) 03/22/22 14:25 Oxyhemoglobin 96.6 % (95.0-99.0) 03/22/22 14:25 FiO2 30 % 03/22/22 14:25 Sodium 136 mmol/L (137-145) L 04/03/22 04:04 Potassium 5.0 mmol/L (3.6-5.0) 04/03/22 04:04 Chloride 97.1 mmol/L (98-107) L 04/03/22 04:04 Carbon Dioxide 30 mmol/L (22-30) 04/03/22 04:04 Anion Gap 14 mmol/L 04/03/22 04:04 BUN 20 mg/dL (9-20) 04/03/22 04:04 Creatinine 0.6 mg/dL (0.8-1.3) L 04/03/22 04:04 Estimated GFR > 60 ml/min 04/03/22 04:04 BUN/Creatinine Ratio 33 % 04/03/22 04:04 Glucose 91 mg/dL (75-100) 04/03/22 04:04 POC Glucose 115 mg/dL (70-105) H 04/03/22 23:50 Lactic Acid 1.20 mmol/L (0.7-2.0) 02/18/22 21:02 Calcium 9.1 mg/dL (8.4-10.2) 04/03/22 04:04 Phosphorus 4.90 mg/dL (2.5-4.5) H 04/03/22 04:04 Magnesium 2.00 mg/dL (1.7-2.3) 04/03/22 04:04 Total Bilirubin 0.30 mg/dL (0.1-1.2) 03/10/22 03:57 AST 17 units/L (5-40) 03/10/22 03:57 ALT 18 units/L (7-56) 03/10/22 03:57 Alkaline Phosphatase 89 units/L (35-129) 03/10/22 03:57 Ammonia 14.0 umol/L (25-60) L 02/18/22 23:22 Troponin T < 0.010 ng/mL (0.00-0.029) 02/18/22 21:02 Total Protein 6.6 g/dL (6.3-8.2) 03/10/22 03:57 Albumin 1.9 g/dL (3.9-5) L 03/10/22 03:57 Albumin/Globulin Ratio 0.4 % 03/10/22 03:57 Urine Color Yellow (Yellow) 03/27/22 08:36 Urine Turbidity Cloudy (Clear) 03/27/22 08:36 Urine pH 7.0 (5.0-7.0) 02/18/22 Unknown Ur Specific [place] 1.015 (1.003-1.030) 02/18/22 Unknown Specific [place] (Man) 1.020 (1.003-1.030) 03/27/22 08:36 Urine Protein <15 mg/dl mg/dL (Negative) 02/18/22 Unknown Ur Protein (Man) 1+ mg/dL (Negative) 03/27/22 08:36 Urine Glucose (UA) Negative mg/dL (Negative) 02/18/22 Unknown Urine Ketones Negative mg/dL (Negative) 02/18/22 Unknown Ur Ketones (Man) Negative (Negative) 03/27/22 08:36 Urine Blood Trace (Negative) 02/18/22 Unknown Urine Nitrite Negative (Negative) 02/18/22 Unknown Ur Nitrite (Man) Negative (Negative) 03/27/22 08:36 Ur Reducing Substances Not Reportable 03/27/22 08:36 Urine Bilirubin Negative (Negative) 02/18/22 Unknown Urine Bilirubin (Man) Negative (Negative) 03/27/22 08:36 Urine Ictotest Not Reportable 03/27/22 08:36 Urine Urobilinogen < 2.0 mg/dL (<2.0) 02/18/22 Unknown Ur Leukocyte Esterase Negative (Negative) 02/18/22 Unknown Leukocyte Esterase (Man) Moderate (Negative) 03/27/22 08:36 Urine WBC (Auto) > 182.0 /HPF (0.0-6.0) H 03/27/22 08:36 Urine RBC (Auto) 9.0 /HPF (0.0-6.0) 03/27/22 08:36 U Epithel Cells (Auto) < 1.0 /HPF (0-13.0) 03/27/22 08:36 Urine RBC (Manual) 1+ (Negative) 03/27/22 08:36 Urine Mucus Few /HPF 03/27/22 08:36 Urine Yeast (Budding) 2+ /HPF 03/27/22 08:36 Urine Opiates Screen Negative 02/18/22 Unknown Urine Methadone Screen Negative 02/18/22 Unknown Ur Barbiturates Screen Negative 02/18/22 Unknown Ur Phencyclidine Scrn Negative 02/18/22 Unknown Ur Amphetamines Screen Negative 02/18/22 Unknown U Benzodiazepines Scrn Negative 02/18/22 Unknown Urine Cocaine Screen Negative 02/18/22 Unknown U Marijuana (THC) Screen Negative 02/18/22 Unknown Drugs of Abuse Note Disclamer 02/18/22 Unknown Plasma/Serum Alcohol < 0.01 % (0-0.07) 02/18/22 21:02 Summers/IV: Voiding Method Indwelling Catheter Active Medications - Current Medications Current Medications: Generic Name Dose Route Start Last Admin Trade Name Freq PRN Reason Stop Dose Admin Acetaminophen 650 mg 03/03/22 09:00 Acetaminophen 325 Mg/10.15 Ml Oral Liqd Unit Dose FEEDTUBE Q4H PRN Pain, Mild (1-3); TEMP > 100.4 Albuterol 2.5 mg 03/12/22 20:00 04/04/22 08:12 Albuterol 2.5 Mg/3 Ml Nebu IH 2.5 mg Q6HRT LAZARUS Administration Famotidine 20 mg 02/25/22 10:00 04/04/22 10:05 Famotidine 20 Mg Tab FEEDTUBE 20 mg BID LAZARUS Administration Heparin Sodium (Porcine) 5,000 unit 02/19/22 06:00 04/04/22 06:21 Heparin 5,000 Unit/1 Ml Vial SUB-Q 5,000 unit Q8HR LAZARUS Administration Levetiracetam 500 mg 02/25/22 22:00 04/04/22 10:05 Levetiracetam 500 Mg/5 Ml Oral Liqd FEEDTUBE 500 mg BID LAZARUS Administration Levothyroxine Sodium 25 mcg 02/26/22 06:00 04/04/22 06:21 Levothyroxine 25 Mcg Tab FEEDTUBE 25 mcg QAM@0600 LAZARUS Administration Magnesium Hydroxide 30 ml 02/19/22 02:02 04/03/22 04:14 Magnesium Hydroxide (Mom) Oral Liqd Udc PO 30 ml Q4H PRN Administration Constipation Midodrine 5 mg 04/03/22 12:00 04/04/22 07:22 Midodrine 5 Mg Tab FEEDTUBE 5 mg TID@0800,1200,1600 LAZARUS Administration Multi-Ingred Cream/Lotion/Oil/Oint 1 applic 02/24/22 15:05 Mineral Oil/Petrolatum, White Ophth Oint 3.5 Gm OU Q4HR PRN Dry Eye(s) Ondansetron HCl 4 mg 02/19/22 02:02 Ondansetron 4 Mg/2 Ml Inj IV Q8H PRN Nausea And Vomiting Pravastatin Sodium 40 mg 02/25/22 22:00 04/03/22 21:33 Pravastatin 40 Mg Tab FEEDTUBE 40 mg QHS LAZARUS Administration Senna/Docusate Sodium 1 tab 02/24/22 22:00 04/04/22 10:05 Sennosides/Docusate Sodium 8.6/50 Mg Tab FEEDTUBE 1 tab BID LAZARUS Administration Sodium Chloride 10 ml 02/19/22 10:00 04/04/22 10:05 Sodium Chloride 0.9% 10 Ml Flush Syringe IV 10 ml BID LAZARUS Administration Sodium Chloride 10 ml 02/19/22 02:02 03/03/22 14:21 Sodium Chloride 0.9% 10 Ml Flush Syringe IV 10 ml PRN PRN Administration LINE FLUSH Nutrition/Malnutrition Assess - Dietary Evaluation Nutrition/Malnutrition Findings: Nutrition Notes Start: 02/19/22 14:29 Freq: Status: Active Protocol: Document 03/31/22 14:18 IVAN (Rec: 03/31/22 14:23 IVAN [id number]) Nutrition Notes Initial or Follow up Reassessment Current Diagnosis Hypertension,Respiratory Failure,Hyperlipidemia Other Pertinent Diagnosis Asp pneu, acute encephalopathy , seizure d/o, partial blindness Current Diet TF - Promote at 65ml/hr Labs/Tests Na 135 CO2 - 31 Pertinent Medications Reviewed Height 5 ft 3 in Weight 63.2 kg [place] Body Weight (kg) 56.36 BMI 24.7 Subjective/Other Information Pt remains on vent support; still awaiting decision on guardianship for trach/PEG placement. Observed Promote infusing at 50ml/hr; RN informed of goal rate. BM x 1 on yesterday. Percent of energy/protein needs met: 75% energy 99% pro Burn Absent Trauma Absent #1 Nutrition Diagnosis Inadequate oral intake Diagnosis Progress(for reassessment Continues documentation) Is patient on ventilator? Yes Is Patient Ambulatory and/or Out of Bed No REE-([place]-confined to bed) [phone] Calculation [facility]ations [facility] Additional Notes Pro needs 1.2-2g/k-126g/ day Fluid needs 1ml/kcal Nutrition Intervention Nutrition Support: Continue Promote to goal rate of 65ml/hr. Provide 50ml water flush q4h. Kcal 1,560 Protein (gm) 98 Carbohydrates (gm) 203 Fat (gm) 41 Fluid (mL) 1,309 Fiber (gm) 0 Goal #1 TF tolerance Goal #2 TF to meet 75%-100% energy and pro needs Goal #3 Wound healing Follow-Up By: 04/04/22 Additional Comments F/U: TF goal rate/tolerance <JOAQUIN ROBIN - Last Filed: 04/05/22 07:32> Assessment and Plan Assessment and plan: I saw and evaluated the patient. I agree with the findings and the plan of care as documented in the Nurse Practitioner's~note, with the following corrections and additions. Hospitalist Physical - Constitutional Vitals: Temp Pulse Resp BP Pulse Ox 98.7 F 81 16 110/70 96 04/05/22 04:27 04/05/22 07:00 04/05/22 07:00 04/05/22 07:00 04/05/22 07:00 HEART Score - HEART Score Troponin: Troponin T < 0.010 ng/mL (0.00-0.029) 02/18/22 21:02 Results - Labs CBC & Chem 7: 04/03/22 04:04 04/03/22 04:04 Labs: Laboratory Last Values WBC 6.7 K/mm3 (4.5-11.0) 04/03/22 04:04 RBC 3.85 M/mm3 (3.65-5.03) 04/03/22 04:04 Hgb 11.9 gm/dl (11.8-15.2) 04/03/22 04:04 Hct 37.6 % (35.5-45.6) 04/03/22 04:04 MCV 98 fl (84-94) H 04/03/22 04:04 MCH 31 pg (28-32) 04/03/22 04:04 MCHC 32 % (32-34) 04/03/22 04:04 RDW 17.9 % (13.2-15.2) H 04/03/22 04:04 Plt Count 378 K/mm3 (140-440) 04/03/22 04:04 Lymph % (Auto) 7.5 % (13.4-35.0) L 03/28/22 04:06 [place] % (Auto) 10.5 % (0.0-7.3) H 03/28/22 04:06 Eos % (Auto) 0.9 % (0.0-4.3) 03/28/22 04:06 Baso % (Auto) 0.4 % (0.0-1.8) 03/28/22 04:06 Lymph # (Auto) 1.1 K/mm3 (1.2-5.4) L 03/28/22 04:06 [place] # (Auto) 1.5 K/mm3 (0.0-0.8) H 03/28/22 04:06 Eos # (Auto) 0.1 K/mm3 (0.0-0.4) 03/28/22 04:06 Baso # (Auto) 0.1 K/mm3 (0.0-0.1) 03/28/22 04:06 Add Manual Diff Complete 03/03/22 03:54 Total Counted 100 03/03/22 03:54 Seg Neutrophils % 80.7 % (40.0-70.0) H 03/28/22 04:06 Seg Neuts % (Manual) 95.0 % (40.0-70.0) H 03/03/22 03:54 Band Neutrophils % 0 % 03/03/22 03:54 Lymphocytes % (Manual) 3.0 % (13.4-35.0) L 03/03/22 03:54 Reactive Lymphs % (Man) 0 % 03/03/22 03:54 Monocytes % (Manual) 2.0 % (0.0-7.3) 03/03/22 03:54 Eosinophils % (Manual) 0 % (0.0-4.3) 03/03/22 03:54 Basophils % (Manual) 0 % (0.0-1.8) 03/03/22 03:54 Metamyelocytes % 0 % 03/03/22 03:54 Myelocytes % 0 % 03/03/22 03:54 Promyelocytes % 0 % 03/03/22 03:54 Blast Cells % 0 % 03/03/22 03:54 Nucleated RBC % Not Reportable 03/03/22 03:54 Seg Neutrophils # 11.4 K/mm3 (1.8-7.7) H 03/28/22 04:06 Seg Neutrophils # Man 18.5 K/mm3 (1.8-7.7) H 03/03/22 03:54 Band Neutrophils # 0.0 K/mm3 03/03/22 03:54 Lymphocytes # (Manual) 0.6 K/mm3 (1.2-5.4) L 03/03/22 03:54 Abs React Lymphs (Man) 0.0 K/mm3 03/03/22 03:54 Monocytes # (Manual) 0.4 K/mm3 (0.0-0.8) 03/03/22 03:54 Eosinophils # (Manual) 0.0 K/mm3 (0.0-0.4) 03/03/22 03:54 Basophils # (Manual) 0.0 K/mm3 (0.0-0.1) 03/03/22 03:54 Metamyelocytes # 0.0 K/mm3 03/03/22 03:54 Myelocytes # 0.0 K/mm3 03/03/22 03:54 Promyelocytes # 0.0 K/mm3 03/03/22 03:54 Blast Cells # 0.0 K/mm3 03/03/22 03:54 WBC Morphology Not Reportable 03/03/22 03:54 Hypersegmented Neuts Not Reportable 03/03/22 03:54 Hyposegmented Neuts Not Reportable 03/03/22 03:54 Hypogranular Neuts Not Reportable 03/03/22 03:54 Smudge Cells Not Reportable 03/03/22 03:54 Toxic Granulation Not Reportable 03/03/22 03:54 Toxic Vacuolation Not Reportable 03/03/22 03:54 Dohle Bodies Not Reportable 03/03/22 03:54 Pelger-Huet Anomaly Not Reportable 03/03/22 03:54 Lakshmi Rods Not Reportable 03/03/22 03:54 Platelet Estimate Consistent w auto 03/03/22 03:54 Clumped Platelets Not Reportable 03/03/22 03:54 Plt Clumps, EDTA Not Reportable 03/03/22 03:54 Large Platelets Not Reportable 03/03/22 03:54 Giant Platelets Not Reportable 03/03/22 03:54 Platelet Satelliting Not Reportable 03/03/22 03:54 Plt Morphology Comment Not Reportable 03/03/22 03:54 RBC Morphology Not Reportable 03/03/22 03:54 Dimorphic RBCs Not Reportable 03/03/22 03:54 Polychromasia Not Reportable 03/03/22 03:54 Hypochromasia Not Reportable 03/03/22 03:54 Poikilocytosis Not Reportable 03/03/22 03:54 Anisocytosis 1+ 03/03/22 03:54 Microcytosis Not Reportable 03/03/22 03:54 Macrocytosis Not Reportable 03/03/22 03:54 Spherocytes Not Reportable 03/03/22 03:54 Pappenheimer Bodies Not Reportable 03/03/22 03:54 Sickle Cells Not Reportable 03/03/22 03:54 Target Cells Not Reportable 03/03/22 03:54 Tear Drop Cells Not Reportable 03/03/22 03:54 Ovalocytes Not Reportable 03/03/22 03:54 Helmet Cells Not Reportable 03/03/22 03:54 [place] Bodies Not Reportable 03/03/22 03:54 [place] Rings Not Reportable 03/03/22 03:54 [place] Cells Not Reportable 03/03/22 03:54 Bite Cells Not Reportable 03/03/22 03:54 Crenated Cell Not Reportable 03/03/22 03:54 Elliptocytes Not Reportable 03/03/22 03:54 Acanthocytes (Spur) Not Reportable 03/03/22 03:54 Rouleaux Not Reportable 03/03/22 03:54 Hemoglobin C Crystals Not Reportable 03/03/22 03:54 Schistocytes Not Reportable 03/03/22 03:54 Malaria parasites Not Reportable 03/03/22 03:54 Cash Bodies Not Reportable 03/03/22 03:54 Hem Pathologist Commnt No 03/03/22 03:54 PT 15.2 Sec. (12.2-14.9) H 04/03/22 04:04 INR 1.05 (0.87-1.13) 04/03/22 04:04 APTT 33.4 Sec. (24.2-36.6) 04/03/22 04:04 ABG pH 7.392 pH Units (7.350-7.450) 03/22/22 14:25 ABG pCO2 54.4 mm Hg 03/22/22 14:25 ABG pO2 150.5 mm Hg (80.0-90.0) H 03/22/22 14:25 ABG HCO3 32.4 mmol/L (20.0-26.0) H 03/22/22 14:25 ABG O2 Saturation 98.8 % (95.0-99.0) 03/22/22 14:25 ABG O2 Content 15.8 (0.0-44) 03/22/22 14:25 ABG Base Excess 6.2 mmol/L (-2.0-3.0) H 03/22/22 14:25 ABG Hemoglobin 11.4 gm/dl (14.0-18.0) L 03/22/22 14:25 ABG Carboxyhemoglobin 1.6 % (0.0-5.0) 03/22/22 14:25 ABG Methemoglobin 0.6 % (0.0-1.5) 03/22/22 14:25 Oxyhemoglobin 96.6 % (95.0-99.0) 03/22/22 14:25 FiO2 30 % 03/22/22 14:25 Sodium 136 mmol/L (137-145) L 04/03/22 04:04 Potassium 5.0 mmol/L (3.6-5.0) 04/03/22 04:04 Chloride 97.1 mmol/L (98-107) L 04/03/22 04:04 Carbon Dioxide 30 mmol/L (22-30) 04/03/22 04:04 Anion Gap 14 mmol/L 04/03/22 04:04 BUN 20 mg/dL (9-20) 04/03/22 04:04 Creatinine 0.6 mg/dL (0.8-1.3) L 04/03/22 04:04 Estimated GFR > 60 ml/min 04/03/22 04:04 BUN/Creatinine Ratio 33 % 04/03/22 04:04 Glucose 91 mg/dL (75-100) 04/03/22 04:04 POC Glucose 116 mg/dL (70-105) H 04/05/22 05:48 Lactic Acid 1.20 mmol/L (0.7-2.0) 02/18/22 21:02 Calcium 9.1 mg/dL (8.4-10.2) 04/03/22 04:04 Phosphorus 4.90 mg/dL (2.5-4.5) H 04/03/22 04:04 Magnesium 2.00 mg/dL (1.7-2.3) 04/03/22 04:04 Total Bilirubin 0.30 mg/dL (0.1-1.2) 03/10/22 03:57 AST 17 units/L (5-40) 03/10/22 03:57 ALT 18 units/L (7-56) 03/10/22 03:57 Alkaline Phosphatase 89 units/L (35-129) 03/10/22 03:57 Ammonia 14.0 umol/L (25-60) L 02/18/22 23:22 Troponin T < 0.010 ng/mL (0.00-0.029) 02/18/22 21:02 Total Protein 6.6 g/dL (6.3-8.2) 03/10/22 03:57 Albumin 1.9 g/dL (3.9-5) L 03/10/22 03:57 Albumin/Globulin Ratio 0.4 % 03/10/22 03:57 Urine Color Yellow (Yellow) 03/27/22 08:36 Urine Turbidity Cloudy (Clear) 03/27/22 08:36 Urine pH 7.0 (5.0-7.0) 02/18/22 Unknown Ur Specific [place] 1.015 (1.003-1.030) 02/18/22 Unknown Specific [place] (Man) 1.020 (1.003-1.030) 03/27/22 08:36 Urine Protein <15 mg/dl mg/dL (Negative) 02/18/22 Unknown Ur Protein (Man) 1+ mg/dL (Negative) 03/27/22 08:36 Urine Glucose (UA) Negative mg/dL (Negative) 02/18/22 Unknown Urine Ketones Negative mg/dL (Negative) 02/18/22 Unknown Ur Ketones (Man) Negative (Negative) 03/27/22 08:36 Urine Blood Trace (Negative) 02/18/22 Unknown Urine Nitrite Negative (Negative) 02/18/22 Unknown Ur Nitrite (Man) Negative (Negative) 03/27/22 08:36 Ur Reducing Substances Not Reportable 03/27/22 08:36 Urine Bilirubin Negative (Negative) 02/18/22 Unknown Urine Bilirubin (Man) Negative (Negative) 03/27/22 08:36 Urine Ictotest Not Reportable 03/27/22 08:36 Urine Urobilinogen < 2.0 mg/dL (<2.0) 02/18/22 Unknown Ur Leukocyte Esterase Negative (Negative) 02/18/22 Unknown Leukocyte Esterase (Man) Moderate (Negative) 03/27/22 08:36 Urine WBC (Auto) > 182.0 /HPF (0.0-6.0) H 03/27/22 08:36 Urine RBC (Auto) 9.0 /HPF (0.0-6.0) 03/27/22 08:36 U Epithel Cells (Auto) < 1.0 /HPF (0-13.0) 03/27/22 08:36 Urine RBC (Manual) 1+ (Negative) 03/27/22 08:36 Urine Mucus Few /HPF 03/27/22 08:36 Urine Yeast (Budding) 2+ /HPF 03/27/22 08:36 Urine Opiates Screen Negative 02/18/22 Unknown Urine Methadone Screen Negative 02/18/22 Unknown Ur Barbiturates Screen Negative 02/18/22 Unknown Ur Phencyclidine Scrn Negative 02/18/22 Unknown Ur Amphetamines Screen Negative 02/18/22 Unknown U Benzodiazepines Scrn Negative 02/18/22 Unknown Urine Cocaine Screen Negative 02/18/22 Unknown U Marijuana (THC) Screen Negative 02/18/22 Unknown Drugs of Abuse Note Disclamer 02/18/22 Unknown Plasma/Serum Alcohol < 0.01 % (0-0.07) 02/18/22 21:02 Summers/IV: Voiding Method Indwelling Catheter Active Medications - Current Medications Current Medications: Generic Name Dose Route Start Last Admin Trade Name Freq PRN Reason Stop Dose Admin Acetaminophen 650 mg 03/03/22 09:00 Acetaminophen 325 Mg/10.15 Ml Oral Liqd Unit Dose FEEDTUBE Q4H PRN Pain, Mild (1-3); TEMP > 100.4 Albuterol 2.5 mg 03/12/22 20:00 04/05/22 01:57 Albuterol 2.5 Mg/3 Ml Nebu IH 2.5 mg Q6HRT LAZARUS Administration Famotidine 20 mg 02/25/22 10:00 04/04/22 22:28 Famotidine 20 Mg Tab FEEDTUBE 20 mg BID LAZARUS Administration Heparin Sodium (Porcine) 5,000 unit 02/19/22 06:00 04/04/22 22:27 Heparin 5,000 Unit/1 Ml Vial SUB-Q 5,000 unit Q8HR LAZARUS Administration Levetiracetam 500 mg 02/25/22 22:00 04/04/22 22:28 Levetiracetam 500 Mg/5 Ml Oral Liqd FEEDTUBE 500 mg BID LAZARUS Administration Levothyroxine Sodium 25 mcg 02/26/22 06:00 04/04/22 06:21 Levothyroxine 25 Mcg Tab FEEDTUBE 25 mcg QAM@0600 LAZARUS Administration Magnesium Hydroxide 30 ml 02/19/22 02:02 04/03/22 04:14 Magnesium Hydroxide (Mom) Oral Liqd Udc PO 30 ml Q4H PRN Administration Constipation Midodrine 5 mg 04/03/22 12:00 04/04/22 16:41 Midodrine 5 Mg Tab FEEDTUBE 5 mg TID@0800,1200,1600 LAZARUS Administration Multi-Ingred Cream/Lotion/Oil/Oint 1 applic 02/24/22 15:05 Mineral Oil/Petrolatum, White Ophth Oint 3.5 Gm OU Q4HR PRN Dry Eye(s) Ondansetron HCl 4 mg 02/19/22 02:02 Ondansetron 4 Mg/2 Ml Inj IV Q8H PRN Nausea And Vomiting Pravastatin Sodium 40 mg 02/25/22 22:00 04/04/22 22:28 Pravastatin 40 Mg Tab FEEDTUBE 40 mg QHS LAZARUS Administration Senna/Docusate Sodium 1 tab 02/24/22 22:00 04/04/22 22:28 Sennosides/Docusate Sodium 8.6/50 Mg Tab FEEDTUBE 1 tab BID LAZARUS Administration Sodium Chloride 10 ml 02/19/22 10:00 04/04/22 22:29 Sodium Chloride 0.9% 10 Ml Flush Syringe IV 10 ml BID LAZARUS Administration Sodium Chloride 10 ml 02/19/22 02:02 03/03/22 14:21 Sodium Chloride 0.9% 10 Ml Flush Syringe IV 10 ml PRN PRN Administration LINE FLUSH Nutrition/Malnutrition Assess - Dietary Evaluation Nutrition/Malnutrition Findings: Nutrition Notes Start: 02/19/22 14:2 9 Freq: Status: Active Protocol: Document 04/04/22 13:07 IVAN (Rec: 04/04/22 13:10 [facility] [id number]) Nutrition Notes Initial or Follow up Brief Note Current Diet TF - Promote at 65ml/hr Subjective/Other Information Observed Promote infusing at goal rate of 65ml/hr. Pt tolerating TF at goal rate. BM documented on 04/01 and 04/03 . Pt remains on vent support. Percent of energy/protein needs met: 98% energy 100% pro Nutrition Intervention Follow-Up By: 04/11/22 Additional Comments F/U: stable TF, vent status, trach/PEG placement, BM
--- NOTE | 2022-04-04 13:59 | Progress Note ---
Assessment and Plan 61 y/o male with abnormal CT of chest. 04/04/22: Day 29 of intubation. Now with guardian, consent can be obtained. hopeful will have surgery sometime next week. Continue supportive measures including daily weaning trials. 04/03/22: Day [address] appointed guardian as it has been approved. 04/02/22: Day 37 of intubation. Continue daily PSV trials. Courts agree with guardianship now awaiting on one to be appointed. 04/01/22: Day 36 of intubation. Continue Daily PSV. Per CM awaiting guardian appointment as courts have agreed to this. 03/31/22: Day 35 of intubation. CBC and chemistry is stable. Awaiting courts and hospital. 03/30/22: Day 34 of intubation. No labs today. Monitor fever as he had low grade temp early am. Rocephin finished yesterday. 03/29/22: Day 33 of intubation. WC now normal. No fever. Hard stop date on the abx. Awaiting Hospital and Court about guardianship. 03/28/22: Day 32 of intubation. WBC better. No fever. Still awaiting hospital and courts. 03/27/22: Day 31 of intubation. Given increase in WBC will treat empirically with Rocephin. Follow up urine cultures. CXR appears stable, await official read. Guarded prognosis. 03/26/22: Day 30 of Intubation. Daily PSV trials. no new recommendations. 03/25/22: Day 29 of intubation. RT to try PSV this am, hesistant given low sats but improved with suctioning. Still no word from the hospital in regards to guardianship. I do not feel comfortable with attempting extubation again on this patient given his quick failure and difficult re-intubation. 03/24/22: Day 28 of intubation. reviewed my partners notes from the weekend. Glad patient is tolerating PSV however do not see conventional extubation in the near future given patient's mental status and how fast he failed extubation (within an hour) on his first attempt. Patient was also a difficult re- intubation. Follow up with and hospital tomorrow. Continue supportive measures. 03/21/22: Day 25 of intubation. No new updates from the hospital about guardianship. Wound care saw on yesterday. Continue daily PSV trials as tolerated. Guarded prognosis. 03/20/22: Day 24 of intubation. No new recommendations. Still awaiting hospital update in regards to guardianship so that decisions can be made. Continue supportive measures. Wound care to see today. 03/19/22: Day 23 of intubation. Prognosis is still guarded. Will discuss with RT about attempts at daily PSV trials. Per notes, Wound care to see , wound was present on admission. 03/18/22: Day 22 of intubation. Prognosis remains guarded. Not able to obtain trach and peg with consent. Continue daily PSV trials as tolerated. 03/17/22: Day 21 of intubation. Still awaiting some form of decision maker for trach and peg placement. Guarded prognosis. 03/16/22: Day 20 of intubation. BP stable. Continue midodrine. Awaiting emergency guardianship from Court to obtain consent for trach and peg. Guarded prognosis. 03/15/22: Day 19 of intubation. BP now is marginal more regularly. Will give an additional liter bolus of LR now. May need to increase Midodrine back to 5. Needs trach in order to be safely weaned from ventilator. Will need peg tube placement in addition to trach. Prognosis remains guarded. Continue PSV trials as tolerated. 03/14/22: Day 18 of intubation. Vitals stable and mental status is unchanged. Still in need of tracheostomy as well as peg tube placement. No guardian appointed yet. 03/13/22: Day 17 of intubation. Agree with bolus and restarting of midodrine. was stopped previously secondary to bradycardia. If patient spikes temp, will culture blood and urine and repeat CXR. Continue daily PSV trials to assess ability for vent liberation. Continues to need trach however no family/guardian to provide consent. Guarded prognosis. 03/12/22: Day 16 of intubation. Following up with hospital in regards to guardian. Continue supportive measures. Guarded prognosis. 03/11/22: hospital now attempting to find emergency guardian to have consent for trach as ethics committee cannot comment on this matter so unable to help. Until then will remain intubated orally. Failed PSV yesterday, will continue to attempt on daily basis. Unfortunate situation. Guarded prognosis. 03/10/22: Today nuñez day 14 of intubation. Given patient's mental state and increased risk of aspiration, the likelihood of conventional extubation with success is very very slim and the patient has already failed this in an extremely short period of time (less than 1 hour). I suspect that he will fail again if tried and could create more difficult reintubation as he was a difficult reintubation on his failed extubation attempt. To prevent further decline and potential complications of prolonged mechanical ventilation, will discuss with ethics and the hospital to use 2 physician consent to obtain trach and peg for this patient with hopes of liberating him from the mechanical ventilator. he has very minimal vent requirements but as been stated several times above, he continues to aspirate and failed conventional extubation almost immediately. Will consult surgery today. Dr. Mancia is prepared to sign consent as well as myself. Hopeful surgery will be on board with this. Continue supportive care for now. Attempt daily PSV trials. 03/07/22: Daily PSV trials as tolerated. Still no one to step up as adult friend. patient has now been intubated since 02/24/22 and is approaching the time period in which prolonged mechanical ventilation could lead to significant complications that could be detrimental to health (infection, stenosis, malacia etc). Will discuss again with ethics but in regards to medical necessity, may need to consider two physician consent if no one is able to claim responsibility for this patient. He is a full code and we must work in his best interest to prevent further harm. Continue supportive measures but he is not a candidate for conventional extubation given his mental state, despite being on minimal support. He has already failed this before. 03/06/22: PSV trials daily. Will discuss with RT. Spoke with ethics. Plan in place and awaiting on news from [facility] and [facility]. Continue supportive measures. Patient has been intubated since 02/24/22 and is approaching the 2 week shadi of intubation will need to make decisions soon to avoid unnecessary complications related to prolonged intubation. 03/05/22: Will follow up with ethics today. Awaiting some guidance about consent for trach and peg. This is a medical necessity to liberate patient from mechanical ventilation. Continue supportive measures. Ok with daily PSV trials 03/04/22: Follow up with ethics later this afternoon. Spoke with RT and patient does have cuff leak, will stop steroids. Stopping midodrine as BP is stable and bradycardia likely from this. 03/03/22: Await ethics eval. CM has spoken with state as well. Daily cuff leaks. Will start to wean steroids tomorrow. Midodrine can cause bradycardia. If continues or worsens will stop. Guarded prognosis. 03/02/22: Continue supportive measures. Await ethics consult before surgery consult for trach and peg. no further need for fluid boluses. Will continue stress dose steroids but have daily air leak checks by RT. Still will need trach, will not attempt extubation again. Guarded prognosis. 03/01/22: Patient is having increased urine output. This could be the cause of new onset hypotension. Will bolus 2 more liters of LR now and reassess. If this continues may need to work up for SIADH including repeat head CT. Follow up ethics review of case. Will need trach for ventilator liberation. Overall prognosis remains guarded. 02/28/22: Will obtain CT neck, noncontrast to look for airway edema or other possible etiologies for failure. Needs ethics consult as given patient's mental state, inability to clear secretions appropriately, will need trach now that he has failed extubation. However he has no family and no POA so no one to give consent. Continue supportive measures. Guarded prognosis. 02/27/22: Continue improvement of oxygenation. Will drop PEEP down today with goal of being at 6 by in the morning. Will repeat CT scan to confirm improvement as no endobronchial lesion was seen, but also to make sure no pa renchymal mass. There was no evidence of extrinsic compression during bronch. Likely extubation tomorrow post CT. 02/26/22: Repeat CXR now. Wean Vent as tolerated. Hopeful extubation soon. Mucous removed. NO ENDOBRONCHIAL LESION/MASS 02/25/22: Bronch tentatively planned for tomorrow with therapeutic scope. Awaiting GI lab to give a time. NPO after midnight. Continue high PEEP 02/24/22: WIll attempt to bronch tomorrow morning. NPO after midnight. Just received word from GI lab they are not able to do bronch tomorrow. Cancel NPO order. Continue to feed patient. Repeat ABG in AM along with CXR. 02/21/22: No new pulm recs for today. Please obtain repeat CXR likely on Thursday. If patient happens to get worse, likely not a candidate for bipap given his we ak cough and mental state and inability to communicate. If worsens and requires intubation, will bronch then under emergent circumstances if no POA or family is able to be located. Continue CPT. Will discuss with RT about NT suctioning. 02/20/22: Saw speech while on the floor. Would like patient to be NPO now. Discussed with nurse on floor and with IMS. John way as yesterday. Would benefit from bronch if able to get consent as this is not emergent. Continue CPT and q shift NT suctioning. Reviewed admission in the past and of note, patient was recently admitted last month and had a CXR done on the 29 of January that was normal. Given this patient's medical history and the history that I obtained from the nursing staff that at the intermediate he was eating solid foods, I suspect that this is aspiration, possibly of a foreign body (most likely food) with atelectasis of the right lower lobe. It is highly unlikely that a mass evolved in size in less than a months time and patient, besides age, has no real risk factors for lung carcinoma. Discussed with the nurse and unfortunately there is no identifiable person that is able to give consent. Bronchoscopy is needed in the case to evaluate to see if lung mass is there vs foreign body, but at this time not able to do. In the meanwhile will recommend the following. 1. Will order CPT with neb therapy 3x daily 2. Suggest maybe NT suctioning q shift. May use nasal trumpet, however do not leave this device in the patient 3. Aspiration precautions 4. Consider speech eval to assess swallowing. Will continue to follow. CCT 31 minutes. Subjective Date of service: 04/04/22 Principal diagnosis: f/u Acute respiratory failure Interval history: Court has now appointed a guardian. Objective Vital Signs - 12hr 04/04/22 04/04/22 04/04/22 02:00 03:00 04:00 Temperature 98.7 F Pulse Rate 85 83 81 Pulse Rate [ Anterior Bilateral Throughout] Pulse Rate [ 82 From Monitor] Respiratory 19 17 15 Rate Respiratory Rate [Anterior Bilateral Throughout] Blood Pressure 119/68 116/67 121/68 O2 Sat by Pulse 94 92 95 Oximetry 04/04/22 04/04/22 04/04/22 05:00 06:00 07:00 Temperature Pulse Rate 83 86 83 Pulse Rate [ Anterior Bilateral Throughout] Pulse Rate [ From Monitor] Respiratory 15 19 15 Rate Respiratory Rate [Anterior Bilateral Throughout] Blood Pressure 117/73 106/69 116/67 O2 Sat by Pulse 96 95 95 Oximetry 04/04/22 04/04/22 04/04/22 08:00 08:12 09:00 Temperature 99.1 F Pulse Rate 75 75 Pulse Rate [ 82 Anterior Bilateral Throughout] Pulse Rate [ 85 From Monitor] Respiratory 14 14 Rate Respiratory 20 Rate [Anterior Bilateral Throughout] Blood Pressure 117/66 108/66 O2 Sat by Pulse 96 96 Oximetry 04/04/22 04/04/22 04/04/22 10:00 11:00 12:00 Temperature 97.8 F Pulse Rate 82 81 80 Pulse Rate [ Anterior Bilateral Throughout] Pulse Rate [ 76 From Monitor] Respiratory 14 14 16 Rate Respiratory Rate [Anterior Bilateral Throughout] Blood Pressure 126/72 117/62 112/64 O2 Sat by Pulse 96 97 93 Oximetry 04/04/22 04/04/22 12:51 13:00 Temperature Pulse Rate 73 76 Pulse Rate [ Anterior Bilateral Throughout] Pulse Rate [ From Monitor] Respiratory 14 Rate Respiratory Rate [Anterior Bilateral Throughout] Blood Pressure 112/64 105/57 O2 Sat by Pulse 100 97 Oximetry Constitutional: alert, other (critically ill on ventilator) Eyes: non-icteric ENT: oropharynx moist Neck: supple Effort: normal Ascultation: Bilateral: diminished breath sounds, rhonchi Cardiovascular: regular rate and rhythm (no mrg) Gastrointestinal: normoactive bowel sounds, soft, non-tender (on o2 vest in place), non-distended Integumentary: normal Extremities: no cyanosis, no edema Neurologic: other (awake) Psychiatric: other (unable to assess) CBC and BMP: 04/03/22 04:04 04/03/22 04:04 ABG, PT/INR, D-dimer: ABG ABG pH 7.392 pH Units (7.350-7.450) 03/22/22 14:25 ABG pCO2 54.4 mm Hg 03/22/22 14:25 ABG pO2 150.5 mm Hg (80.0-90.0) H 03/22/22 14:25 ABG O2 Saturation 98.8 % (95.0-99.0) 03/22/22 14:25 PT/INR, D-dimer PT 15.2 Sec. (12.2-14.9) H 04/03/22 04:04 INR 1.05 (0.87-1.13) 04/03/22 04:04 Abnormal lab findings: Abnormal Labs 02/18/22 02/18/22 02/18/22 19:34 21:02 21:02 WBC RBC Hgb Hct MCV 101 H MCH 34 H MCHC RDW 16.1 H Lymph % (Auto) [place] % (Auto) 12.4 H Lymph # (Auto) [place] # (Auto) 1.2 H Seg Neutrophils % 73.0 H Seg Neuts % (Manual) Lymphocytes % (Manual) Seg Neutrophils # Seg Neutrophils # Man Lymphocytes # (Manual) PT 16.9 H INR 1.20 H ABG pH ABG pO2 ABG HCO3 ABG O2 Saturation ABG Base Excess ABG Hemoglobin Oxyhemoglobin Sodium Potassium Chloride Carbon Dioxide BUN Creatinine Glucose POC Glucose 116 H Calcium Phosphorus AST ALT Ammonia Albumin Urine WBC (Auto) 02/18/22 02/18/22 02/18/22 21:02 22:45 23:22 WBC RBC Hgb Hct MCV MCH MCHC RDW Lymph % (Auto) [place] % (Auto) Lymph # (Auto) [place] # (Auto) Seg Neutrophils % Seg Neuts % (Manual) Lymphocytes % (Manual) Seg Neutrophils # Seg Neutrophils # Man Lymphocytes # (Manual) PT INR ABG pH ABG pO2 55.6 L ABG HCO3 28.4 H ABG O2 Saturation 91.5 L ABG Base Excess 3.8 H ABG Hemoglobin 13.2 L Oxyhemoglobin 89.6 L Sodium Potassium 5.1 H Chloride Carbon Dioxide BUN Creatinine Glucose 102 H POC Glucose Calcium Phosphorus AST 48 H ALT 64 H Ammonia 14.0 L Albumin 2.7 L Urine WBC (Auto) 02/20/22 02/20/22 02/23/22 04:59 04:59 06:29 WBC 11.4 H RBC Hgb Hct MCV 103 H MCH 33 H MCHC RDW 16.5 H Lymph % (Auto) 5.5 L [place] % (Auto) 12.1 H Lymph # (Auto) 0.6 L [place] # (Auto) 1.4 H Seg Neutrophils % 81.4 H Seg Neuts % (Manual) Lymphocytes % (Manual) Seg Neutrophils # 9.2 H Seg Neutrophils # Man Lymphocytes # (Manual) PT INR ABG pH ABG pO2 ABG HCO3 ABG O2 Saturation ABG Base Excess ABG Hemoglobin Oxyhemoglobin Sodium Potassium Chloride Carbon Dioxide BUN Creatinine Glucose POC Glucose 113 H Calcium 8.2 L Phosphorus AST ALT Ammonia Albumin Urine WBC (Auto) 02/23/22 02/23/22 02/24/22 11:22 16:10 00:02 WBC RBC Hgb Hct MCV MCH MCHC RDW Lymph % (Auto) [place] % (Auto) Lymph # (Auto) [place] # (Auto) Seg Neutrophils % Seg Neuts % (Manual) Lymphocytes % (Manual) Seg Neutrophils # Seg Neutrophils # Man Lymphocytes # (Manual) PT INR ABG pH ABG pO2 ABG HCO3 ABG O2 Saturation ABG Base Excess ABG Hemoglobin Oxyhemoglobin Sodium Potassium Chloride Carbon Dioxide BUN Creatinine Glucose POC Glucose 108 H 115 H 109 H Calcium Phosphorus AST ALT Ammonia Albumin Urine WBC (Auto) 02/24/22 02/24/22 02/24/22 11:05 11:05 13:20 WBC RBC 3.55 L Hgb Hct MCV 100 H MCH 34 H MCHC RDW 15.6 H Lymph % (Auto) [place] % (Auto) Lymph # (Auto) [place] # (Auto) Seg Neutrophils % Seg Neuts % (Manual) Lymphocytes % (Manual) Seg Neutrophils # Seg Neutrophils # Man Lymphocytes # (Manual) PT INR ABG pH ABG pO2 ABG HCO3 ABG O2 Saturation ABG Base Excess ABG Hemoglobin Oxyhemoglobin Sodium 146 H Potassium 3.2 L D Chloride 108.4 H Carbon Dioxide BUN Creatinine 0.5 L Glucose POC Glucose 111 H Calcium 7.9 L Phosphorus 2.20 L AST ALT Ammonia Albumin Urine WBC (Auto) 02/24/22 02/24/22 02/24/22 16:30 17:03 20:25 WBC RBC Hgb Hct MCV MCH MCHC RDW Lymph % (Auto) [place] % (Auto) Lymph # (Auto) [place] # (Auto) Seg Neutrophils % Seg Neuts % (Manual) Lymphocytes % (Manual) Seg Neutrophils # Seg Neutrophils # Man Lymphocytes # (Manual) PT INR ABG pH 7.319 L ABG pO2 65.3 L ABG HCO3 31.3 H ABG O2 Saturation 92.2 L ABG Base Excess 3.8 H ABG Hemoglobin 12.0 L Oxyhemoglobin 90.3 L Sodium Potassium Chloride 107.9 H Carbon Dioxide BUN 8 L Creatinine 0.4 L Glucose POC Glucose 108 H Calcium 7.6 L Phosphorus 4.60 H D AST ALT Ammonia Albumin Urine WBC (Auto) 02/25/22 02/25/22 02/25/22 04:12 04:12 05:05 WBC RBC 3.07 L Hgb 10.2 L Hct 31.5 L MCV 103 H MCH 33 H MCHC RDW 15.6 H Lymph % (Auto) [place] % (Auto) Lymph # (Auto) [place] # (Auto) Seg Neutrophils % Seg Neuts % (Manual) Lymphocytes % (Manual) Seg Neutrophils # Seg Neutrophils # Man Lymphocytes # (Manual) PT INR ABG pH ABG pO2 ABG HCO3 32.5 H ABG O2 Saturation ABG Base Excess 5.6 H ABG Hemoglobin 10.8 L Oxyhemoglobin 94.8 L Sodium Potassium 3.5 L Chloride 107.7 H Carbon Dioxide BUN Creatinine 0.5 L Glucose POC Glucose Calcium 7.0 L Phosphorus AST ALT Ammonia Albumin Urine WBC (Auto) 02/25/22 02/25/22 02/26/22 12:05 18:33 00:07 WBC RBC Hgb Hct MCV MCH MCHC RDW Lymph % (Auto) [place] % (Auto) Lymph # (Auto) [place] # (Auto) Seg Neutrophils % Seg Neuts % (Manual) Lymphocytes % (Manual) Seg Neutrophils # Seg Neutrophils # Man Lymphocytes # (Manual) PT INR ABG pH ABG pO2 ABG HCO3 ABG O2 Saturation ABG Base Excess ABG Hemoglobin Oxyhemoglobin Sodium Potassium Chloride Carbon Dioxide BUN Creatinine Glucose POC Glucose 127 H 125 H 114 H Calcium Phosphorus AST ALT Ammonia Albumin Urine WBC (Auto) 02/26/22 02/26/22 02/26/22 03:30 04:42 11:34 WBC RBC Hgb Hct MCV MCH MCHC RDW Lymph % (Auto) [place] % (Auto) Lymph # (Auto) [place] # (Auto) Seg Neutrophils % Seg Neuts % (Manual) Lymphocytes % (Manual) Seg Neutrophils # Seg Neutrophils # Man Lymphocytes # (Manual) PT INR ABG pH ABG pO2 143.2 H ABG HCO3 33.2 H ABG O2 Saturation ABG Base Excess 6.5 H ABG Hemoglobin 9.4 L Oxyhemoglobin Sodium Potassium Chloride Carbon Dioxide 32 H BUN Creatinine 0.7 L Glucose POC Glucose 114 H Calcium 8.0 L Phosphorus AST ALT Ammonia Albumin Urine WBC (Auto) 02/26/22 02/26/22 02/27/22 18:17 23:37 04:19 WBC 13.7 H RBC 2.78 L Hgb 9.3 L Hct 28.5 L MCV 103 H MCH 33 H MCHC RDW 16.3 H Lymph % (Auto) [place] % (Auto) Lymph # (Auto) [place] # (Auto) Seg Neutrophils % Seg Neuts % (Manual) Lymphocytes % (Manual) Seg Neutrophils # Seg Neutrophils # Man Lymphocytes # (Manual) PT INR ABG pH ABG pO2 ABG HCO3 ABG O2 Saturation ABG Base Excess ABG Hemoglobin Oxyhemoglobin Sodium Potassium Chloride Carbon Dioxide BUN Creatinine Glucose POC Glucose 111 H 117 H Calcium Phosphorus AST ALT Ammonia Albumin Urine WBC (Auto) 02/27/22 02/27/22 02/27/22 04:19 04:35 05:27 WBC RBC Hgb Hct MCV MCH MCHC RDW Lymph % (Auto) [place] % (Auto) Lymph # (Auto) [place] # (Auto) Seg Neutrophils % Seg Neuts % (Manual) Lymphocytes % (Manual) Seg Neutrophils # Seg Neutrophils # Man Lymphocytes # (Manual) PT INR ABG pH ABG pO2 96.3 H ABG HCO3 34.9 H ABG O2 Saturation ABG Base Excess 8.1 H ABG Hemoglobin Oxyhemoglobin Sodium Potassium Chloride Carbon Dioxide 31 H BUN Creatinine 0.6 L Glucose 107 H POC Glucose 133 H Calcium 7.8 L Phosphorus AST ALT Ammonia Albumin Urine WBC (Auto) 02/27/22 02/27/22 02/28/22 11:15 23:35 03:38 WBC 13.3 H RBC 3.05 L Hgb 10.2 L Hct 30.7 L MCV 101 H MCH 33 H MCHC RDW 16.1 H Lymph % (Auto) [place] % (Auto) Lymph # (Auto) [place] # (Auto) Seg Neutrophils % Seg Neuts % (Manual) Lymphocytes % (Manual) Seg Neutrophils # Seg Neutrophils # Man Lymphocytes # (Manual) PT INR ABG pH ABG pO2 ABG HCO3 ABG O2 Saturation ABG Base Excess ABG Hemoglobin Oxyhemoglobin Sodium Potassium Chloride Carbon Dioxide BUN Creatinine Glucose POC Glucose 129 H 122 H Calcium Phosphorus AST ALT Ammonia Albumin Urine WBC (Auto) 02/28/22 02/28/22 02/28/22 04:50 05:30 09:30 WBC RBC Hgb Hct MCV MCH MCHC RDW Lymph % (Auto) [place] % (Auto) Lymph # (Auto) [place] # (Auto) Seg Neutrophils % Seg Neuts % (Manual) Lymphocytes % (Manual) Seg Neutrophils # Seg Neutrophils # Man Lymphocytes # (Manual) PT INR ABG pH 7.451 H 7.488 H ABG pO2 77.0 L ABG HCO3 37.1 H 34.6 H ABG O2 Saturation ABG Base Excess 11.5 H 10.1 H ABG Hemoglobin 10.1 L 10.0 L Oxyhemoglobin Sodium Potassium Chloride Carbon Dioxide BUN Creatinine Glucose POC Glucose 121 H Calcium Phosphorus AST ALT Ammonia Albumin Urine WBC (Auto) 02/28/22 02/28/22 03/01/22 11:36 23:07 04:27 WBC 12.5 H RBC 2.85 L Hgb 9.5 L Hct 28.6 L MCV 101 H MCH 33 H MCHC RDW 15.7 H Lymph % (Auto) [place] % (Auto) Lymph # (Auto) [place] # (Auto) Seg Neutrophils % Seg Neuts % (Manual) Lymphocytes % (Manual) Seg Neutrophils # Seg Neutrophils # Man Lymphocytes # (Manual) PT INR ABG pH ABG pO2 ABG HCO3 ABG O2 Saturation ABG Base Excess ABG Hemoglobin Oxyhemoglobin Sodium Potassium Chloride Carbon Dioxide BUN Creatinine Glucose POC Glucose 112 H 107 H Calcium Phosphorus AST ALT Ammonia Albumin Urine WBC (Auto) 03/01/22 03/01/22 03/01/22 04:27 05:05 11:29 WBC RBC Hgb Hct MCV MCH MCHC RDW Lymph % (Auto) [place] % (Auto) Lymph # (Auto) [place] # (Auto) Seg Neutrophils % Seg Neuts % (Manual) Lymphocytes % (Manual) Seg Neutrophils # Seg Neutrophils # Man Lymphocytes # (Manual) PT INR ABG pH ABG pO2 ABG HCO3 ABG O2 Saturation ABG Base Excess ABG Hemoglobin Oxyhemoglobin Sodium 147 H D Potassium Chloride Carbon Dioxide 34 H BUN Creatinine 0.6 L Glucose 128 H POC Glucose 119 H 121 H Calcium 7.9 L Phosphorus AST ALT Ammonia Albumin Urine WBC (Auto) 03/01/22 03/01/22 03/02/22 16:15 23:57 05:18 WBC RBC Hgb Hct MCV MCH MCHC RDW Lymph % (Auto) [place] % (Auto) Lymph # (Auto) [place] # (Auto) Seg Neutrophils % Seg Neuts % (Manual) Lymphocytes % (Manual) Seg Neutrophils # Seg Neutrophils # Man Lymphocytes # (Manual) PT INR ABG pH ABG pO2 110.5 H ABG HCO3 33.0 H ABG O2 Saturation ABG Base Excess 7.4 H ABG Hemoglobin 8.6 L Oxyhemoglobin Sodium Potassium Chloride Carbon Dioxide BUN Creatinine Glucose POC Glucose 134 H 140 H Calcium Phosphorus AST ALT Ammonia Albumin Urine WBC (Auto) 03/02/22 03/02/22 03/02/22 05:53 09:04 09:04 WBC 15.0 H RBC 3.00 L Hgb 9.7 L Hct 30.7 L MCV 102 H MCH MCHC RDW 16.6 H Lymph % (Auto) [place] % (Auto) Lymph # (Auto) [place] # (Auto) Seg Neutrophils % Seg Neuts % (Manual) Lymphocytes % (Manual) Seg Neutrophils # Seg Neutrophils # Man Lymphocytes # (Manual) PT INR ABG pH ABG pO2 ABG HCO3 ABG O2 Saturation ABG Base Excess ABG Hemoglobin Oxyhemoglobin Sodium Potassium Chloride Carbon Dioxide 31 H BUN Creatinine 0.6 L Glucose 157 H POC Glucose 158 H Calcium 7.9 L Phosphorus AST ALT Ammonia Albumin Urine WBC (Auto) 03/02/22 03/02/22 03/02/22 11:36 16:25 23:17 WBC RBC Hgb Hct MCV MCH MCHC RDW Lymph % (Auto) [place] % (Auto) Lymph # (Auto) [place] # (Auto) Seg Neutrophils % Seg Neuts % (Manual) Lymphocytes % (Manual) Seg Neutrophils # Seg Neutrophils # Man Lymphocytes # (Manual) PT INR ABG pH ABG pO2 ABG HCO3 ABG O2 Saturation ABG Base Excess ABG Hemoglobin Oxyhemoglobin Sodium Potassium Chloride Carbon Dioxide BUN Creatinine Glucose POC Glucose 160 H 132 H 157 H Calcium Phosphorus AST ALT Ammonia Albumin Urine WBC (Auto) 03/03/22 03/03/22 03/03/22 03:54 03:54 05:27 WBC 19.5 H RBC 2.79 L Hgb 9.0 L Hct 28.6 L MCV 102 H MCH MCHC RDW 16.2 H Lymph % (Auto) [place] % (Auto) Lymph # (Auto) [place] # (Auto) Seg Neutrophils % Seg Neuts % (Manual) 95.0 H Lymphocytes % (Manual) 3.0 L Seg Neutrophils # Seg Neutrophils # Man 18.5 H Lymphocytes # (Manual) 0.6 L PT INR ABG pH ABG pO2 ABG HCO3 ABG O2 Saturation ABG Base Excess ABG Hemoglobin Oxyhemoglobin Sodium Potassium Chloride Carbon Dioxide BUN Creatinine 0.6 L Glucose 130 H POC Glucose 149 H Calcium 8.1 L Phosphorus AST ALT Ammonia Albumin Urine WBC (Auto) 03/03/22 03/03/22 03/04/22 11:13 17:30 00:02 WBC RBC Hgb Hct MCV MCH MCHC RDW Lymph % (Auto) [place] % (Auto) Lymph # (Auto) [place] # (Auto) Seg Neutrophils % Seg Neuts % (Manual) Lymphocytes % (Manual) Seg Neutrophils # Seg Neutrophils # Man Lymphocytes # (Manual) PT INR ABG pH ABG pO2 ABG HCO3 ABG O2 Saturation ABG Base Excess ABG Hemoglobin Oxyhemoglobin Sodium Potassium Chloride Carbon Dioxide BUN Creatinine Glucose POC Glucose 139 H 138 H 157 H Calcium Phosphorus AST ALT Ammonia Albumin Urine WBC (Auto) 03/04/22 03/04/22 03/04/22 05:32 05:32 05:48 WBC 16.1 H RBC 2.81 L Hgb 9.3 L Hct 28.8 L MCV 102 H MCH 33 H MCHC RDW 16.7 H Lymph % (Auto) [place] % (Auto) Lymph # (Auto) [place] # (Auto) Seg Neutrophils % Seg Neuts % (Manual) Lymphocytes % (Manual) Seg Neutrophils # Seg Neutrophils # Man Lymphocytes # (Manual) PT INR ABG pH ABG pO2 ABG HCO3 ABG O2 Saturation ABG Base Excess ABG Hemoglobin Oxyhemoglobin Sodium Potassium Chloride Carbon Dioxide BUN Creatinine 0.7 L Glucose 135 H POC Glucose 145 H Calcium 8.3 L Phosphorus AST ALT Ammonia Albumin Urine WBC (Auto) 03/04/22 03/04/22 03/05/22 11:34 16:29 00:28 WBC RBC Hgb Hct MCV MCH MCHC RDW Lymph % (Auto) [place] % (Auto) Lymph # (Auto) [place] # (Auto) Seg Neutrophils % Seg Neuts % (Manual) Lymphocytes % (Manual) Seg Neutrophils # Seg Neutrophils # Man Lymphocytes # (Manual) PT INR ABG pH ABG pO2 ABG HCO3 ABG O2 Saturation ABG Base Excess ABG Hemoglobin Oxyhemoglobin Sodium Potassium Chloride Carbon Dioxide BUN Creatinine Glucose POC Glucose 148 H 140 H 116 H Calcium Phosphorus AST ALT Ammonia Albumin Urine WBC (Auto) 03/05/22 03/05/22 03/05/22 06:29 11:30 17:38 WBC RBC Hgb Hct MCV MCH MCHC RDW Lymph % (Auto) [place] % (Auto) Lymph # (Auto) [place] # (Auto) Seg Neutrophils % Seg Neuts % (Manual) Lymphocytes % (Manual) Seg Neutrophils # Seg Neutrophils # Man Lymphocytes # (Manual) PT INR ABG pH ABG pO2 ABG HCO3 ABG O2 Saturation ABG Base Excess ABG Hemoglobin Oxyhemoglobin Sodium Potassium Chloride Carbon Dioxide BUN Creatinine Glucose POC Glucose 114 H 114 H 117 H Calcium Phosphorus AST ALT Ammonia Albumin Urine WBC (Auto) 03/06/22 03/06/22 03/06/22 04:17 04:17 06:06 WBC 13.4 H RBC 2.85 L Hgb 9.4 L Hct 29.0 L MCV 102 H MCH 33 H MCHC RDW 16.4 H Lymph % (Auto) [place] % (Auto) Lymph # (Auto) [place] # (Auto) Seg Neutrophils % Seg Neuts % (Manual) Lymphocytes % (Manual) Seg Neutrophils # Seg Neutrophils # Man Lymphocytes # (Manual) PT INR ABG pH ABG pO2 ABG HCO3 ABG O2 Saturation ABG Base Excess ABG Hemoglobin Oxyhemoglobin Sodium Potassium 3.5 L Chloride Carbon Dioxide 31 H BUN Creatinine 0.6 L Glucose 101 H POC Glucose 106 H Calcium 7.7 L Phosphorus 2.00 L AST ALT Ammonia Albumin Urine WBC (Auto) 03/06/22 03/06/22 03/07/22 18:04 23:50 05:14 WBC RBC Hgb Hct MCV MCH MCHC RDW Lymph % (Auto) [place] % (Auto) Lymph # (Auto) [place] # (Auto) Seg Neutrophils % Seg Neuts % (Manual) Lymphocytes % (Manual) Seg Neutrophils # Seg Neutrophils # Man Lymphocytes # (Manual) PT INR ABG pH ABG pO2 ABG HCO3 ABG O2 Saturation ABG Base Excess ABG Hemoglobin Oxyhemoglobin Sodium Potassium Chloride Carbon Dioxide BUN Creatinine Glucose POC Glucose 108 H 115 H 116 H Calcium Phosphorus AST ALT Ammonia Albumin Urine WBC (Auto) 03/07/22 03/07/22 03/08/22 11:42 18:13 04:34 WBC RBC 2.86 L Hgb 9.2 L Hct 29.3 L MCV 103 H MCH MCHC 31 L RDW 16.9 H Lymph % (Auto) [place] % (Auto) Lymph # (Auto) [place] # (Auto) Seg Neutrophils % Seg Neuts % (Manual) Lymphocytes % (Manual) Seg Neutrophils # Seg Neutrophils # Man Lymphocytes # (Manual) PT INR ABG pH ABG pO2 ABG HCO3 ABG O2 Saturation ABG Base Excess ABG Hemoglobin Oxyhemoglobin Sodium Potassium Chloride Carbon Dioxide BUN Creatinine Glucose POC Glucose 123 H 109 H Calcium Phosphorus AST ALT Ammonia Albumin Urine WBC (Auto) 03/08/22 03/08/22 03/08/22 04:34 11:29 16:34 WBC RBC Hgb Hct MCV MCH MCHC RDW Lymph % (Auto) [place] % (Auto) Lymph # (Auto) [place] # (Auto) Seg Neutrophils % Seg Neuts % (Manual) Lymphocytes % (Manual) Seg Neutrophils # Seg Neutrophils # Man Lymphocytes # (Manual) PT INR ABG pH ABG pO2 ABG HCO3 ABG O2 Saturation ABG Base Excess ABG Hemoglobin Oxyhemoglobin Sodium Potassium Chloride Carbon Dioxide 33 H BUN Creatinine 0.5 L Glucose 109 H POC Glucose 117 H 109 H Calcium 7.6 L Phosphorus AST ALT Ammonia Albumin Urine WBC (Auto) 03/08/22 03/09/22 03/10/22 23:56 11:15 03:57 WBC RBC 2.99 L Hgb 9.9 L Hct 30.3 L MCV 102 H MCH 33 H MCHC RDW 16.8 H Lymph % (Auto) 13.3 L [place] % (Auto) 12.5 H Lymph # (Auto) [place] # (Auto) 1.3 H Seg Neutrophils % 72.4 H Seg Neuts % (Manual) Lymphocytes % (Manual) Seg Neutrophils # Seg Neutrophils # Man Lymphocytes # (Manual) PT INR ABG pH ABG pO2 ABG HCO3 ABG O2 Saturation ABG Base Excess ABG Hemoglobin Oxyhemoglobin Sodium Potassium Chloride Carbon Dioxide BUN Creatinine Glucose POC Glucose 106 H 110 H Calcium Phosphorus AST ALT Ammonia Albumin Urine WBC (Auto) 03/10/22 03/10/22 03/10/22 03:57 04:50 16:04 WBC RBC Hgb Hct MCV MCH MCHC RDW Lymph % (Auto) [place] % (Auto) Lymph # (Auto) [place] # (Auto) Seg Neutrophils % Seg Neuts % (Manual) Lymphocytes % (Manual) Seg Neutrophils # Seg Neutrophils # Man Lymphocytes # (Manual) PT INR ABG pH 7.465 H ABG pO2 ABG HCO3 31.9 H ABG O2 Saturation ABG Base Excess 7.3 H ABG Hemoglobin 11.0 L Oxyhemoglobin Sodium Potassium 3.4 L Chloride Carbon Dioxide BUN Creatinine 0.6 L Glucose POC Glucose 115 H Calcium 8.1 L Phosphorus AST ALT Ammonia Albumin 1.9 L Urine WBC (Auto) 03/11/22 03/11/22 03/11/22 04:02 04:02 04:02 WBC 12.0 H RBC 2.81 L Hgb 9.2 L Hct 29.1 L MCV 103 H MCH 33 H MCHC RDW 17.5 H Lymph % (Auto) [place] % (Auto) Lymph # (Auto) [place] # (Auto) Seg Neutrophils % Seg Neuts % (Manual) Lymphocytes % (Manual) Seg Neutrophils # Seg Neutrophils # Man Lymphocytes # (Manual) PT 16.2 H INR 1.16 H ABG pH ABG pO2 ABG HCO3 ABG O2 Saturation ABG Base Excess ABG Hemoglobin Oxyhemoglobin Sodium Potassium Chloride Carbon Dioxide BUN Creatinine 0.5 L Glucose 104 H POC Glucose Calcium 7.9 L Phosphorus AST ALT Ammonia Albumin Urine WBC (Auto) 03/11/22 03/11/22 03/11/22 05:10 11:07 16:32 WBC RBC Hgb Hct MCV MCH MCHC RDW Lymph % (Auto) [place] % (Auto) Lymph # (Auto) [place] # (Auto) Seg Neutrophils % Seg Neuts % (Manual) Lymphocytes % (Manual) Seg Neutrophils # Seg Neutrophils # Man Lymphocytes # (Manual) PT INR ABG pH 7.476 H ABG pO2 ABG HCO3 29.7 H ABG O2 Saturation ABG Base Excess 5.7 H ABG Hemoglobin 9.1 L Oxyhemoglobin Sodium Potassium Chloride Carbon Dioxide BUN Creatinine Glucose POC Glucose 108 H 121 H Calcium Phosphorus AST ALT Ammonia Albumin Urine WBC (Auto) 03/12/22 03/13/22 03/13/22 05:51 06:08 12:02 WBC RBC 2.73 L Hgb 9.0 L Hct 27.5 L MCV 101 H MCH 33 H MCHC RDW 17.2 H Lymph % (Auto) [place] % (Auto) Lymph # (Auto) [place] # (Auto) Seg Neutrophils % Seg Neuts % (Manual) Lymphocytes % (Manual) Seg Neutrophils # Seg Neutrophils # Man Lymphocytes # (Manual) PT INR ABG pH ABG pO2 ABG HCO3 ABG O2 Saturation ABG Base Excess ABG Hemoglobin Oxyhemoglobin Sodium Potassium Chloride Carbon Dioxide BUN Creatinine Glucose POC Glucose 116 H 111 H Calcium Phosphorus AST ALT Ammonia Albumin Urine WBC (Auto) 03/13/22 03/13/22 03/14/22 12:48 18:17 03:58 WBC RBC 2.97 L Hgb 9.7 L Hct 30.0 L MCV 101 H MCH 33 H MCHC RDW 16.7 H Lymph % (Auto) [place] % (Auto) Lymph # (Auto) [place] # (Auto) Seg Neutrophils % Seg Neuts % (Manual) Lymphocytes % (Manual) Seg Neutrophils # Seg Neutrophils # Man Lymphocytes # (Manual) PT INR ABG pH ABG pO2 ABG HCO3 ABG O2 Saturation ABG Base Excess ABG Hemoglobin Oxyhemoglobin Sodium Potassium Chloride Carbon Dioxide BUN Creatinine Glucose POC Glucose 125 H 114 H Calcium Phosphorus AST ALT Ammonia Albumin Urine WBC (Auto) 03/14/22 03/14/22 03/14/22 03:58 13:01 16:41 WBC RBC Hgb Hct MCV MCH MCHC RDW Lymph % (Auto) [place] % (Auto) Lymph # (Auto) [place] # (Auto) Seg Neutrophils % Seg Neuts % (Manual) Lymphocytes % (Manual) Seg Neutrophils # Seg Neutrophils # Man Lymphocytes # (Manual) PT INR ABG pH ABG pO2 ABG HCO3 ABG O2 Saturation ABG Base Excess ABG Hemoglobin Oxyhemoglobin Sodium Potassium Chloride Carbon Dioxide BUN Creatinine 0.6 L Glucose POC Glucose 118 H 109 H Calcium 8.2 L Phosphorus AST ALT Ammonia Albumin Urine WBC (Auto) 03/16/22 03/16/22 03/17/22 05:28 05:28 23:19 WBC RBC 2.81 L Hgb 9.1 L Hct 27.8 L MCV 99 H MCH MCHC RDW 17.0 H Lymph % (Auto) [place] % (Auto) Lymph # (Auto) [place] # (Auto) Seg Neutrophils % Seg Neuts % (Manual) Lymphocytes % (Manual) Seg Neutrophils # Seg Neutrophils # Man Lymphocytes # (Manual) PT INR ABG pH ABG pO2 ABG HCO3 ABG O2 Saturation ABG Base Excess ABG Hemoglobin Oxyhemoglobin Sodium Potassium Chloride Carbon Dioxide BUN Creatinine 0.5 L Glucose POC Glucose 113 H Calcium 8.2 L Phosphorus AST ALT Ammonia Albumin Urine WBC (Auto) 03/20/22 03/20/22 03/20/22 04:09 04:09 17:22 WBC RBC 2.90 L Hgb 9.6 L Hct 28.9 L MCV 100 H MCH 33 H MCHC RDW 17.4 H Lymph % (Auto) [place] % (Auto) Lymph # (Auto) [place] # (Auto) Seg Neutrophils % Seg Neuts % (Manual) Lymphocytes % (Manual) Seg Neutrophils # Seg Neutrophils # Man Lymphocytes # (Manual) PT INR ABG pH ABG pO2 ABG HCO3 ABG O2 Saturation ABG Base Excess ABG Hemoglobin Oxyhemoglobin Sodium Potassium Chloride Carbon Dioxide BUN Creatinine 0.6 L Glucose POC Glucose 110 H Calcium 8.2 L Phosphorus AST ALT Ammonia Albumin Urine WBC (Auto) 03/21/22 03/21/22 03/22/22 18:24 23:09 12:18 WBC RBC Hgb Hct MCV MCH MCHC RDW Lymph % (Auto) [place] % (Auto) Lymph # (Auto) [place] # (Auto) Seg Neutrophils % Seg Neuts % (Manual) Lymphocytes % (Manual) Seg Neutrophils # Seg Neutrophils # Man Lymphocytes # (Manual) PT INR ABG pH ABG pO2 ABG HCO3 ABG O2 Saturation ABG Base Excess ABG Hemoglobin Oxyhemoglobin Sodium Potassium Chloride Carbon Dioxide BUN Creatinine Glucose POC Glucose 110 H 107 H 106 H Calcium Phosphorus AST ALT Ammonia Albumin Urine WBC (Auto) 03/22/22 03/23/22 03/23/22 14:25 00:21 11:31 WBC RBC Hgb Hct MCV MCH MCHC RDW Lymph % (Auto) [place] % (Auto) Lymph # (Auto) [place] # (Auto) Seg Neutrophils % Seg Neuts % (Manual) Lymphocytes % (Manual) Seg Neutrophils # Seg Neutrophils # Man Lymphocytes # (Manual) PT INR ABG pH ABG pO2 150.5 H ABG HCO3 32.4 H ABG O2 Saturation ABG Base Excess 6.2 H ABG Hemoglobin 11.4 L Oxyhemoglobin Sodium Potassium Chloride Carbon Dioxide BUN Creatinine Glucose POC Glucose 107 H 110 H Calcium Phosphorus AST ALT Ammonia Albumin Urine WBC (Auto) 03/24/22 03/24/22 03/24/22 03:47 03:47 05:56 WBC RBC 3.18 L Hgb 10.1 L Hct 31.1 L MCV 98 H MCH MCHC RDW 17.4 H Lymph % (Auto) [place] % (Auto) Lymph # (Auto) [place] # (Auto) Seg Neutrophils % Seg Neuts % (Manual) Lymphocytes % (Manual) Seg Neutrophils # Seg Neutrophils # Man Lymphocytes # (Manual) PT INR ABG pH ABG pO2 ABG HCO3 ABG O2 Saturation ABG Base Excess ABG Hemoglobin Oxyhemoglobin Sodium Potassium Chloride Carbon Dioxide BUN Creatinine 0.5 L Glucose POC Glucose 107 H Calcium Phosphorus AST ALT Ammonia Albumin Urine WBC (Auto) 03/24/22 03/25/22 03/25/22 11:15 00:14 11:24 WBC RBC Hgb Hct MCV MCH MCHC RDW Lymph % (Auto) [place] % (Auto) Lymph # (Auto) [place] # (Auto) Seg Neutrophils % Seg Neuts % (Manual) Lymphocytes % (Manual) Seg Neutrophils # Seg Neutrophils # Man Lymphocytes # (Manual) PT INR ABG pH ABG pO2 ABG HCO3 ABG O2 Saturation ABG Base Excess ABG Hemoglobin Oxyhemoglobin Sodium Potassium Chloride Carbon Dioxide BUN Creatinine Glucose POC Glucose 126 H 109 H 110 H Calcium Phosphorus AST ALT Ammonia Albumin Urine WBC (Auto) 03/25/22 03/26/22 03/26/22 16:27 05:18 11:15 WBC RBC Hgb Hct MCV MCH MCHC RDW Lymph % (Auto) [place] % (Auto) Lymph # (Auto) [place] # (Auto) Seg Neutrophils % Seg Neuts % (Manual) Lymphocytes % (Manual) Seg Neutrophils # Seg Neutrophils # Man Lymphocytes # (Manual) PT INR ABG pH ABG pO2 ABG HCO3 ABG O2 Saturation ABG Base Excess ABG Hemoglobin Oxyhemoglobin Sodium Potassium Chloride Carbon Dioxide BUN Creatinine Glucose POC Glucose 123 H 114 H 135 H Calcium Phosphorus AST ALT Ammonia Albumin Urine WBC (Auto) 03/26/22 03/27/22 03/27/22 18:08 03:52 03:52 WBC 17.1 H RBC 2.94 L Hgb 9.2 L Hct 29.3 L MCV 100 H MCH MCHC 31 L RDW 17.5 H Lymph % (Auto) [place] % (Auto) Lymph # (Auto) [place] # (Auto) Seg Neutrophils % Seg Neuts % (Manual) Lymphocytes % (Manual) Seg Neutrophils # Seg Neutrophils # Man Lymphocytes # (Manual) PT INR ABG pH ABG pO2 ABG HCO3 ABG O2 Saturation ABG Base Excess ABG Hemoglobin Oxyhemoglobin Sodium 136 L Potassium Chloride Carbon Dioxide 32 H BUN 23 H Creatinine 0.6 L Glucose POC Glucose 130 H Calcium 8.2 L Phosphorus AST ALT Ammonia Albumin Urine WBC (Auto) 03/27/22 03/27/22 03/27/22 08:36 12:55 18:27 WBC RBC Hgb Hct MCV MCH MCHC RDW Lymph % (Auto) [place] % (Auto) Lymph # (Auto) [place] # (Auto) Seg Neutrophils % Seg Neuts % (Manual) Lymphocytes % (Manual) Seg Neutrophils # Seg Neutrophils # Man Lymphocytes # (Manual) PT INR ABG pH ABG pO2 ABG HCO3 ABG O2 Saturation ABG Base Excess ABG Hemoglobin Oxyhemoglobin Sodium Potassium Chloride Carbon Dioxide BUN Creatinine Glucose POC Glucose 137 H 114 H Calcium Phosphorus AST ALT Ammonia Albumin Urine WBC (Auto) > 182.0 H 03/28/22 03/28/22 03/28/22 01:00 04:06 04:52 WBC 14.2 H RBC 2.76 L Hgb 8.6 L Hct 26.8 L MCV 97 H MCH MCHC RDW 17.4 H Lymph % (Auto) 7.5 L [place] % (Auto) 10.5 H Lymph # (Auto) 1.1 L [place] # (Auto) 1.5 H Seg Neutrophils % 80.7 H Seg Neuts % (Manual) Lymphocytes % (Manual) Seg Neutrophils # 11.4 H Seg Neutrophils # Man Lymphocytes # (Manual) PT INR ABG pH ABG pO2 ABG HCO3 ABG O2 Saturation ABG Base Excess ABG Hemoglobin Oxyhemoglobin Sodium Potassium Chloride Carbon Dioxide BUN Creatinine Glucose POC Glucose 111 H 111 H Calcium Phosphorus AST ALT Ammonia Albumin Urine WBC (Auto) 03/28/22 03/28/22 03/29/22 12:09 23:23 04:22 WBC RBC 2.85 L Hgb 8.9 L Hct 27.8 L MCV 98 H MCH MCHC RDW 17.8 H Lymph % (Auto) [place] % (Auto) Lymph # (Auto) [place] # (Auto) Seg Neutrophils % Seg Neuts % (Manual) Lymphocytes % (Manual) Seg Neutrophils # Seg Neutrophils # Man Lymphocytes # (Manual) PT INR ABG pH ABG pO2 ABG HCO3 ABG O2 Saturation ABG Base Excess ABG Hemoglobin Oxyhemoglobin Sodium Potassium Chloride Carbon Dioxide BUN Creatinine Glucose POC Glucose 114 H 112 H Calcium Phosphorus AST ALT Ammonia Albumin Urine WBC (Auto) 03/29/22 03/29/22 03/29/22 05:56 12:22 23:39 WBC RBC Hgb Hct MCV MCH MCHC RDW Lymph % (Auto) [place] % (Auto) Lymph # (Auto) [place] # (Auto) Seg Neutrophils % Seg Neuts % (Manual) Lymphocytes % (Manual) Seg Neutrophils # Seg Neutrophils # Man Lymphocytes # (Manual) PT INR ABG pH ABG pO2 ABG HCO3 ABG O2 Saturation ABG Base Excess ABG Hemoglobin Oxyhemoglobin Sodium Potassium Chloride Carbon Dioxide BUN Creatinine Glucose POC Glucose 116 H 130 H 121 H Calcium Phosphorus AST ALT Ammonia Albumin Urine WBC (Auto) 03/30/22 03/30/22 03/30/22 11:52 16:04 23:05 WBC RBC Hgb Hct MCV MCH MCHC RDW Lymph % (Auto) [place] % (Auto) Lymph # (Auto) [place] # (Auto) Seg Neutrophils % Seg Neuts % (Manual) Lymphocytes % (Manual) Seg Neutrophils # Seg Neutrophils # Man Lymphocytes # (Manual) PT INR ABG pH ABG pO2 ABG HCO3 ABG O2 Saturation ABG Base Excess ABG Hemoglobin Oxyhemoglobin Sodium Potassium Chloride Carbon Dioxide BUN Creatinine Glucose POC Glucose 127 H 122 H 113 H Calcium Phosphorus AST ALT Ammonia Albumin Urine WBC (Auto) 03/31/22 03/31/22 03/31/22 03:56 03:56 10:59 WBC RBC 3.08 L Hgb 9.5 L Hct 30.1 L MCV 98 H MCH MCHC RDW 17.7 H Lymph % (Auto) [place] % (Auto) Lymph # (Auto) [place] # (Auto) Seg Neutrophils % Seg Neuts % (Manual) Lymphocytes % (Manual) Seg Neutrophils # Seg Neutrophils # Man Lymphocytes # (Manual) PT INR ABG pH ABG pO2 ABG HCO3 ABG O2 Saturation ABG Base Excess ABG Hemoglobin Oxyhemoglobin Sodium 135 L Potassium Chloride 97.4 L Carbon Dioxide 31 H BUN Creatinine 0.5 L Glucose 102 H POC Glucose 120 H Calcium Phosphorus AST ALT Ammonia Albumin Urine WBC (Auto) 04/01/22 04/01/22 04/01/22 00:09 06:08 11:03 WBC RBC Hgb Hct MCV MCH MCHC RDW Lymph % (Auto) [place] % (Auto) Lymph # (Auto) [place] # (Auto) Seg Neutrophils % Seg Neuts % (Manual) Lymphocytes % (Manual) Seg Neutrophils # Seg Neutrophils # Man Lymphocytes # (Manual) PT INR ABG pH ABG pO2 ABG HCO3 ABG O2 Saturation ABG Base Excess ABG Hemoglobin Oxyhemoglobin Sodium Potassium Chloride Carbon Dioxide BUN Creatinine Glucose POC Glucose 118 H 137 H 133 H Calcium Phosphorus AST ALT Ammonia Albumin Urine WBC (Auto) 04/01/22 04/02/22 04/02/22 17:36 05:49 13:25 WBC RBC Hgb Hct MCV MCH MCHC RDW Lymph % (Auto) [place] % (Auto) Lymph # (Auto) [place] # (Auto) Seg Neutrophils % Seg Neuts % (Manual) Lymphocytes % (Manual) Seg Neutrophils # Seg Neutrophils # Man Lymphocytes # (Manual) PT INR ABG pH ABG pO2 ABG HCO3 ABG O2 Saturation ABG Base Excess ABG Hemoglobin Oxyhemoglobin Sodium Potassium Chloride Carbon Dioxide BUN Creatinine Glucose POC Glucose 116 H 107 H 124 H Calcium Phosphorus AST ALT Ammonia Albumin Urine WBC (Auto) 04/02/22 04/03/22 04/03/22 17:06 04:04 04:04 WBC RBC Hgb Hct MCV 98 H MCH MCHC RDW 17.9 H Lymph % (Auto) [place] % (Auto) Lymph # (Auto) [place] # (Auto) Seg Neutrophils % Seg Neuts % (Manual) Lymphocytes % (Manual) Seg Neutrophils # Seg Neutrophils # Man Lymphocytes # (Manual) PT 15.2 H INR ABG pH ABG pO2 ABG HCO3 ABG O2 Saturation ABG Base Excess ABG Hemoglobin Oxyhemoglobin Sodium Potassium Chloride Carbon Dioxide BUN Creatinine Glucose POC Glucose 110 H Calcium Phosphorus AST ALT Ammonia Albumin Urine WBC (Auto) 04/03/22 04/03/22 04/03/22 04:04 11:40 17:21 WBC RBC Hgb Hct MCV MCH MCHC RDW Lymph % (Auto) [place] % (Auto) Lymph # (Auto) [place] # (Auto) Seg Neutrophils % Seg Neuts % (Manual) Lymphocytes % (Manual) Seg Neutrophils # Seg Neutrophils # Man Lymphocytes # (Manual) PT INR ABG pH ABG pO2 ABG HCO3 ABG O2 Saturation ABG Base Excess ABG Hemoglobin Oxyhemoglobin Sodium 136 L Potassium Chloride 97.1 L Carbon Dioxide BUN Creatinine 0.6 L Glucose POC Glucose 117 H 107 H Calcium Phosphorus 4.90 H AST ALT Ammonia Albumin Urine WBC (Auto) 04/03/22 23:50 WBC RBC Hgb Hct MCV MCH MCHC RDW Lymph % (Auto) [place] % (Auto) Lymph # (Auto) [place] # (Auto) Seg Neutrophils % Seg Neuts % (Manual) Lymphocytes % (Manual) Seg Neutrophils # Seg Neutrophils # Man Lymphocytes # (Manual) PT INR ABG pH ABG pO2 ABG HCO3 ABG O2 Saturation ABG Base Excess ABG Hemoglobin Oxyhemoglobin Sodium Potassium Chloride Carbon Dioxide BUN Creatinine Glucose POC Glucose 115 H Calcium Phosphorus AST ALT Ammonia Albumin Urine WBC (Auto)
[2022-04-04] MEDS: PRAVASTATIN 40 MG TAB FEEDTUBE SCH (22:28)
[2022-04-05] MEDS: ALBUTEROL 2.5 MG/3 ML NEBU IH SCH ×4 (01:57→20:12)
[2022-04-05] MEDS: LEVOTHYROXINE 25 MCG TAB FEEDTUBE SCH (07:45)
[2022-04-05] MEDS: HEPARIN 5,000 UNIT/1 ML VIAL SUB-Q SCH ×3 (07:45→23:04)
[2022-04-05] MEDS: levETIRAcetam 500 MG/5 ML ORAL LIQD FEEDTUBE SCH ×2 (09:14→23:03)
[2022-04-05] MEDS: MIDODRINE 5 MG TAB FEEDTUBE SCH ×3 (09:15→17:09)
[2022-04-05] MEDS: FAMOTIDINE 20 MG TAB FEEDTUBE SCH ×2 (09:15→23:04)
[2022-04-05] MEDS: SENNOSIDES/DOCUSATE SODIUM 8.6/50 MG TAB FEEDTUBE SCH ×2 (09:15→23:07)
--- NOTE | 2022-04-05 12:09 | Progress Note ---
Assessment and Plan Assessment and plan: This is a 51-year-old male with HTN, seizure disorder, Down syndrome, HLD, partial blindness admitted with aspiration pneumonia, probable bronchogenic carcinoma, acute hypoxic respiratory failure and acute encephalopathy Hospital course to date: 02/19/2022. Consult pulmonary for further evaluation and possible bronchoscopy. I suspect patient has component of aspiration pneumonia as well. We will obtain a speech therapy evaluation for swallowing and start empiric antibiotics. Continue O2 supplementation to maintain sats greater than 92%. 02/20/2022. Pulmonary feels that the abnormality seen on CT scan is highly unlikely for a mass given negative chest x-ray 1 month ago and no risk factors. Etiology is likely secondary to aspiration from possibly a foreign body most likely food with atelectasis of the right lower lobe. Bronchoscopy is needed in the case to evaluate to see if lung mass is there vs foreign body, but at this time not able to do because no identifiable person that is able to give consent. Continue aspiration precautions and continue speech therapy evaluation for swallowing. Keep n.p.o. for now 02/21/2022. Patient remains NPO. Consider DHT placement. Follow-up with speech therapy evaluation. Pulmonology to consider bronchoscopy if able to obtain consent. Continue IV antibiotics for aspiration pneumonia 02/22/2022. Patient remains NPO. Consider DHT placement. Follow-up with speech therapy evaluation. Pulmonology to consider bronchoscopy if able to obtain consent. Continue IV antibiotics for aspiration pneumonia 02/23/2022. DHT placed yesterday. TF initiated for nutritional support. Patient currently with strict NPO. Aspiration precautions. Pulmonology to consider bronchoscopy if able to obtain consent. Continue IV an tibiotics for aspiration pneumonia 02/24: Patient was transferred to the ICU for further monitoring. This morning patient remained on high flow nasal cannula on 40 L/100% and despite repeated nasotracheal suctioning patient SPO2 remained in the 80s. Patient was placed on nonrebreather and SPO2 increased to upper 80s. Patient was subsequently intubated by anesthesia. Started on sedation. 02/25: Patient remains sedated on fentanyl, potassium and magnesium repleted. IV fluids and amlodipine discontinued. Possible bronchoscopy tomorrow. 02/26: Patient had a bronchoscopy today which showed mucus and no endobronchial lesions or masses. FiO2 was increased to 100 during and postprocedure weaning as tolerated. Repeat CXR is much improved after bronc. Given 1 L LR bolus due to hypotension. No acute events reported overnight. 02/27: Decreased PEEP, will repeat CT of chest. no acute changes overnight. 02/28: Patient was extubated today however had to be be intubated shortly after. Patient ETT looked mispositioned on x-ray and Dr. Alonzo did do a bedside bronc. Patient was briefly hypotensive and on Levophed postintubation however Levophed was quickly titrated off and patient did not require central line. No acute events reported overnight. Will obtain CT neck d/t difficulty intubating. Ethi committee consulted. 03/04: Overnight patient was hypotensive and started on IVF. Patient started on steroids as no air leak noted and hypotension and given 2 L LR 03/05: Overnight patient received bolus per RN report, no orders seen. Continue supportive care 03/03: SB on the monitor, HR as low as 37, VSS. Will continue to monitor for now. Awaiting on desicion from [facility] for possible trach and PEG. Continue daily air leak per [facility] 03/04: MAIDA overnight. Remains stable on the vent. Awaiting on desicion from [facility] for possible trach and PEG. Continue current supportive measures 03/05: MAIDA overnight. Awaiting on desicion from [facility] for possible trach and PEG. Midodrine held yesterday, HR improved. Continue current supportive measures. Daily PSV trial as tolerated per [facility] 03/06: Remains stable on the vent. Continue current supportive measures, daily PSV trial per [facility]. Awaiting on desicion for possible trach and PEG. 03/07: MAIDA overnight, remains stable. Continue daily PSV trial as tolerated. Awaiting on desicion for possible trach and PEG. 03/08: Patient failed PSV trial this am due to tachycardia and increase RR. Continue supportive measures and daily PSV trial as tolerated. Possible discussion with ethics and [facility] on Thursday in regards to medical necessity, may need to consider two physician consent if no one is able to claim responsibility for this patient. 03/09: MAIDA overnight. Continue current supportive measures and daily PSV trail as tolerated. Awaiting on desicion for possible trach and PEG, discussion with Ethics possibly tomorrow per [facility]. 03/10: no acute events overnight, PSV today. replete potassium. 03/11: No acute events reported overnight, patient failed PSV yesterday and will repeat today. Hospital to start guardianship process. 03/12: No acute events overnight. PSV today 03/13: Patient given 500ml normal saline and started on midodrine for hypotension. No acute events reported overnight. Failed pressure support again this morning. 03/14: No acute events reported overnight, patient blood pressure seems better therefore midodrine discontinued. RT placed on CPAP need lasted for couple hours. Will remove summers 03/15: Midodrine was restarted yesterday evening for hypotension, Summers catheter not removed due to sacral ulcer and history of retention. Unable to crush Flomax and patient will not tolerate doxazosin given hypotension. Given LR bolus this morning. If blood pressure continues to be borderline after bolus, we will adjust management as needed. CPAP as tolerated 03/16: No acute events reported overnight, patient placed on CPAP trial this morning which he failed. 03/17: RT attempted PSV which he failed again today. No acute events reported overnight. 03/18: Awaiting ethic committee's decision on Trach/PEG. Patient tolerated PSV trial for over 3 hrs today, continue daily PSV trial as tolerated. 03/19: MAIDA overnight. Continue current supportive measures. Daily PSV trial as tolerated. Awaiting on desicion for possible trach and PEG. 03/20: MAIDA overnight. Daily PSV trial as tolerated. Awaiting decision on guardianship for trach and PEG. 03/21: Remains stable, condition unchanged. Continue supportive measures and daily PSV trial as tolerated. 03/22: MAIDA overnight. Continue current supportive measures. Daily PSV trial as tolerated 03/23: MAIDA overnight, continue supportive measures and daily PSV trial as tolerated. 03/24: Condition unchanged. Still waiting on Ethics' decision for possible trach/Peg. Continue supportive measures and daily PSV trial as tolerated. 03/25: PSV attempt today, does open eyes to stimuli, no acute events overnight. 03/26: Yesterday evening Summers catheter was removed as he was due to be changed, condom cath placed. Overnight patient had good urine output and per RN repeated bladder scans showed less than 200 mL of urine. We will continue to monitor u rine output. RT to attempt PSV 03/27: Patient has leukocytosis today and UA has pyuria with moderate LE therefore he will be started on antibiotics. 03/28: Leukocytosis improving. No acute events reported overnight. 03/29: No acute events overnight. Continue supportive care. 03/30: no acute events overnight, PSV again. 03/31: Condition unchanged, remains on low vent setting. Possible Ethics meeting today and tomorrow for possible guardianship. Will consult General Surgery for possible trach and Peg once guardianship decision has been made. Continue supportive measures and daily PSV trial as tolerated 04/01: Remains stable on the vent. Court hearing today, awaiting decision on appointed guardian by the [facility]. Continue current supportive measures and daily PSV trial as tolerated 04/02: MAIDA overnight. Stable on the vent. Awaiting on desicion on appointed guardian. Continue current supportive measures and daily PSV trial as tolerated. 04/03: Awaiting on desicion on appointed guardian. Continue current supportive measures and daily PSV trial as tolerated 04/04: Guardian appointed by the [facility]. Plan for possible trach and Peg by early next week. Continue current supportive measures and daily PSV trial as tolerated 04/05: Continue current supportive measures and daily PSV trial as tolerated. Plan for possible trach and Peg next week. Neuro: Acute encephalopathy, h/o seizure disorder, Down syndrome, partial blindness -Intubated and off sedation -Reorientation as needed -Maintain sleep-wake cycle -aspiration/seizure precautions -As needed analgesia -CT head showed no acute abnormality -Continue Keppra Cardiac: Hypotension, h/o HTN, HLD -Cardiology consulted, appreciate recommendations -Blood pressure monitoring per protocol -d/c amlodipine -On PO Midodrine for hypotension Respiratory: Acute hypoxic respiratory failure, r/o bronchogenic carcinoma -[facility] consulted, appreciate recommendations -Intubated on 02/24 with a 8.0 at 23 at the lips but extubated 02/28 -reintubated 02/28 with 8.0 OETT -Vent settings: AC rate 14, TV 360, PEEP 6, FO2 30% -See RT notes for titration -VAP bundle -SPO2 monitoring -02/18 CTA chest showed no evidence of pulmonary embolism, suspected bronchogenic carcinoma with associated obstruction of the right lower lobe proximal bronchus segment, 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 adenopathy and suspected to left lower lobe metastatic nodule -02/26 Bronch->mucous, no lesion noted -02/27 CT chest showed right mainstem bronchus patent with small amount of inte rval bronchial fluid which may be mucus (this may account for the appearance of the prior CTA chest fluid-filled airway rather than entering bronchial lesion), previously seen complete left lower lobe since related to bronchial occlusion has significantly improved, there is persistent compressive atelectasis in the right lower lung secondary to the pleural effusion, bilateral pleural effusions, right lung pneumonia -CT neck showed no acute changes - IV Steroids stopped GI: Moderate protein calorie malnutrition -PPI -NTR consulted for tube feedings -BR: Senokot S : Hypernatremia (resolved) -FWF q4 hr -Monitor intake and output -Renally dose medications -Avoid nephrotoxic medications -Trend BMP ID: UTI, Aspiration PNA (resolved), sacral wound (POA) -UA with pyuria, mod LE with leukocytosis -WOCN consulted -Dressing changes per nursing -S/p Rocephin for 5 days (02/19-02/24) -Current abx therapy: rocephin for 3 days -Monitor WBC and temperature curve Endo: NAD -Avoid hypoglycemia -Accu-Cheks every 6 -Avoid hypoglycemia Heme: NAD -Trend CBC -Transfuse hemoglobin less than 7 -SCDs to BLE while in bed The high probability of a clinically significant, sudden or life threatening deterioration of the [resp] system(s) required my full and direct attention, intervention and personal management. The aggregate critical care time was [60] minutes. This time is in addition to time spent performing reported procedures but includes the following: [x] Data Review and interpretation [x] Patient assessment and monitoring of vital signs [x] Documentation [x] Medication orders and management Disposition Plan: ICU Total Time Spent with Patient (Minutes): 60 History Interval history: Patient seen and examined at the bedside. Remains stable on low vent setting. SR on the monitor this am, VSS. MAIDA overnight Hospitalist Physical - Physical exam Narrative exam: General appearance: Present: no acute distress, well-nourished, obese - EENT Eyes: Present: PERRL - Neck Neck: Present: normal ROM - Respiratory Respiratory effort: normal Respiratory: bilateral: rhonchi - Cardiovascular Rhythm: regular Heart Sounds: Present: S1 & S2 - Extremities Extremities: no ischemia, pulses intact, pulses symmetrical Extremity abnormal: edema - Peripheral Assessment Generalized Edema Type: Non-pitting Edema Degree: 1+ Capillary Refill: < 3 seconds Skin Temperature: Warm Peripheral Pulses: within normal limits - Abdominal General gastrointestinal: soft, non-distended, normal bowel sounds - Integumentary Integumentary: Present: warm, dry - Psychiatric Psychiatric: other (Intubated, unresponsive. Not on any sedations) - Neurologic Neurologic: moves all extremities, other (Intubated, unresponsive. Not on any sedations) - Allied Health Allied health notes reviewed: nursing, case management - Constitutional Vitals: Temp Pulse Resp BP Pulse Ox 97.9 F 70 11 L 107/64 95 04/05/22 08:00 04/05/22 10:00 04/05/22 10:00 04/05/22 10:00 04/05/22 10:00 HEART Score - HEART Score Troponin: Troponin T < 0.010 ng/mL (0.00-0.029) 02/18/22 21:02 Results - Labs CBC & Chem 7: 04/03/22 04:04 04/03/22 04:04 Labs: Laboratory Last Values WBC 6.7 K/mm3 (4.5-11.0) 04/03/22 04:04 RBC 3.85 M/mm3 (3.65-5.03) 04/03/22 04:04 Hgb 11.9 gm/dl (11.8-15.2) 04/03/22 04:04 Hct 37.6 % (35.5-45.6) 04/03/22 04:04 MCV 98 fl (84-94) H 04/03/22 04:04 MCH 31 pg (28-32) 04/03/22 04:04 MCHC 32 % (32-34) 04/03/22 04:04 RDW 17.9 % (13.2-15.2) H 04/03/22 04:04 Plt Count 378 K/mm3 (140-440) 04/03/22 04:04 Lymph % (Auto) 7.5 % (13.4-35.0) L 03/28/22 04:06 [place] % (Auto) 10.5 % (0.0-7.3) H 03/28/22 04:06 Eos % (Auto) 0.9 % (0.0-4.3) 03/28/22 04:06 Baso % (Auto) 0.4 % (0.0-1.8) 03/28/22 04:06 Lymph # (Auto) 1.1 K/mm3 (1.2-5.4) L 03/28/22 04:06 [place] # (Auto) 1.5 K/mm3 (0.0-0.8) H 03/28/22 04:06 Eos # (Auto) 0.1 K/mm3 (0.0-0.4) 03/28/22 04:06 Baso # (Auto) 0.1 K/mm3 (0.0-0.1) 03/28/22 04:06 Add Manual Diff Complete 03/03/22 03:54 Total Counted 100 03/03/22 03:54 Seg Neutrophils % 80.7 % (40.0-70.0) H 03/28/22 04:06 Seg Neuts % (Manual) 95.0 % (40.0-70.0) H 03/03/22 03:54 Band Neutrophils % 0 % 03/03/22 03:54 Lymphocytes % (Manual) 3.0 % (13.4-35.0) L 03/03/22 03:54 Reactive Lymphs % (Man) 0 % 03/03/22 03:54 Monocytes % (Manual) 2.0 % (0.0-7.3) 03/03/22 03:54 Eosinophils % (Manual) 0 % (0.0-4.3) 03/03/22 03:54 Basophils % (Manual) 0 % (0.0-1.8) 03/03/22 03:54 Metamyelocytes % 0 % 03/03/22 03:54 Myelocytes % 0 % 03/03/22 03:54 Promyelocytes % 0 % 03/03/22 03:54 Blast Cells % 0 % 03/03/22 03:54 Nucleated RBC % Not Reportable 03/03/22 03:54 Seg Neutrophils # 11.4 K/mm3 (1.8-7.7) H 03/28/22 04:06 Seg Neutrophils # Man 18.5 K/mm3 (1.8-7.7) H 03/03/22 03:54 Band Neutrophils # 0.0 K/mm3 03/03/22 03:54 Lymphocytes # (Manual) 0.6 K/mm3 (1.2-5.4) L 03/03/22 03:54 Abs React Lymphs (Man) 0.0 K/mm3 03/03/22 03:54 Monocytes # (Manual) 0.4 K/mm3 (0.0-0.8) 03/03/22 03:54 Eosinophils # (Manual) 0.0 K/mm3 (0.0-0.4) 03/03/22 03:54 Basophils # (Manual) 0.0 K/mm3 (0.0-0.1) 03/03/22 03:54 Metamyelocytes # 0.0 K/mm3 03/03/22 03:54 Myelocytes # 0.0 K/mm3 03/03/22 03:54 Promyelocytes # 0.0 K/mm3 03/03/22 03:54 Blast Cells # 0.0 K/mm3 03/03/22 03:54 WBC Morphology Not Reportable 03/03/22 03:54 Hypersegmented Neuts Not Reportable 03/03/22 03:54 Hyposegmented Neuts Not Reportable 03/03/22 03:54 Hypogranular Neuts Not Reportable 03/03/22 03:54 Smudge Cells Not Reportable 03/03/22 03:54 Toxic Granulation Not Reportable 03/03/22 03:54 Toxic Vacuolation Not Reportable 03/03/22 03:54 Dohle Bodies Not Reportable 03/03/22 03:54 Pelger-Huet Anomaly Not Reportable 03/03/22 03:54 Lakshmi Rods Not Reportable 03/03/22 03:54 Platelet Estimate Consistent w auto 03/03/22 03:54 Clumped Platelets Not Reportable 03/03/22 03:54 Plt Clumps, EDTA Not Reportable 03/03/22 03:54 Large Platelets Not Reportable 03/03/22 03:54 Giant Platelets Not Reportable 03/03/22 03:54 Platelet Satelliting Not Reportable 03/03/22 03:54 Plt Morphology Comment Not Reportable 03/03/22 03:54 RBC Morphology Not Reportable 03/03/22 03:54 Dimorphic RBCs Not Reportable 03/03/22 03:54 Polychromasia Not Reportable 03/03/22 03:54 Hypochromasia Not Reportable 03/03/22 03:54 Poikilocytosis Not Reportable 03/03/22 03:54 Anisocytosis 1+ 03/03/22 03:54 Microcytosis Not Reportable 03/03/22 03:54 Macrocytosis Not Reportable 03/03/22 03:54 Spherocytes Not Reportable 03/03/22 03:54 Pappenheimer Bodies Not Reportable 03/03/22 03:54 Sickle Cells Not Reportable 03/03/22 03:54 Target Cells Not Reportable 03/03/22 03:54 Tear Drop Cells Not Reportable 03/03/22 03:54 Ovalocytes Not Reportable 03/03/22 03:54 Helmet Cells Not Reportable 03/03/22 03:54 [place] Bodies Not Reportable 03/03/22 03:54 [place] Rings Not Reportable 03/03/22 03:54 [place] Cells Not Reportable 03/03/22 03:54 Bite Cells Not Reportable 03/03/22 03:54 Crenated Cell Not Reportable 03/03/22 03:54 Elliptocytes Not Reportable 03/03/22 03:54 Acanthocytes (Spur) Not Reportable 03/03/22 03:54 Rouleaux Not Reportable 03/03/22 03:54 Hemoglobin C Crystals Not Reportable 03/03/22 03:54 Schistocytes Not Reportable 03/03/22 03:54 Malaria parasites Not Reportable 03/03/22 03:54 Cash Bodies Not Reportable 03/03/22 03:54 Hem Pathologist Commnt No 03/03/22 03:54 PT 15.2 Sec. (12.2-14.9) H 04/03/22 04:04 INR 1.05 (0.87-1.13) 04/03/22 04:04 APTT 33.4 Sec. (24.2-36.6) 04/03/22 04:04 ABG pH 7.392 pH Units (7.350-7.450) 03/22/22 14:25 ABG pCO2 54.4 mm Hg 03/22/22 14:25 ABG pO2 150.5 mm Hg (80.0-90.0) H 03/22/22 14:25 ABG HCO3 32.4 mmol/L (20.0-26.0) H 03/22/22 14:25 ABG O2 Saturation 98.8 % (95.0-99.0) 03/22/22 14:25 ABG O2 Content 15.8 (0.0-44) 03/22/22 14:25 ABG Base Excess 6.2 mmol/L (-2.0-3.0) H 03/22/22 14:25 ABG Hemoglobin 11.4 gm/dl (14.0-18.0) L 03/22/22 14:25 ABG Carboxyhemoglobin 1.6 % (0.0-5.0) 03/22/22 14:25 ABG Methemoglobin 0.6 % (0.0-1.5) 03/22/22 14:25 Oxyhemoglobin 96.6 % (95.0-99.0) 03/22/22 14:25 FiO2 30 % 03/22/22 14:25 Sodium 136 mmol/L (137-145) L 04/03/22 04:04 Potassium 5.0 mmol/L (3.6-5.0) 04/03/22 04:04 Chloride 97.1 mmol/L (98-107) L 04/03/22 04:04 Carbon Dioxide 30 mmol/L (22-30) 04/03/22 04:04 Anion Gap 14 mmol/L 04/03/22 04:04 BUN 20 mg/dL (9-20) 04/03/22 04:04 Creatinine 0.6 mg/dL (0.8-1.3) L 04/03/22 04:04 Estimated GFR > 60 ml/min 04/03/22 04:04 BUN/Creatinine Ratio 33 % 04/03/22 04:04 Glucose 91 mg/dL (75-100) 04/03/22 04:04 POC Glucose 116 mg/dL (70-105) H 04/05/22 05:48 Lactic Acid 1.20 mmol/L (0.7-2.0) 02/18/22 21:02 Calcium 9.1 mg/dL (8.4-10.2) 04/03/22 04:04 Phosphorus 4.90 mg/dL (2.5-4.5) H 04/03/22 04:04 Magnesium 2.00 mg/dL (1.7-2.3) 04/03/22 04:04 Total Bilirubin 0.30 mg/dL (0.1-1.2) 03/10/22 03:57 AST 17 units/L (5-40) 03/10/22 03:57 ALT 18 units/L (7-56) 03/10/22 03:57 Alkaline Phosphatase 89 units/L (35-129) 03/10/22 03:57 Ammonia 14.0 umol/L (25-60) L 02/18/22 23:22 Troponin T < 0.010 ng/mL (0.00-0.029) 02/18/22 21:02 Total Protein 6.6 g/dL (6.3-8.2) 03/10/22 03:57 Albumin 1.9 g/dL (3.9-5) L 03/10/22 03:57 Albumin/Globulin Ratio 0.4 % 03/10/22 03:57 Urine Color Yellow (Yellow) 03/27/22 08:36 Urine Turbidity Cloudy (Clear) 03/27/22 08:36 Urine pH 7.0 (5.0-7.0) 02/18/22 Unknown Ur Specific [place] 1.015 (1.003-1.030) 02/18/22 Unknown Specific [place] (Man) 1.020 (1.003-1.030) 03/27/22 08:36 Urine Protein <15 mg/dl mg/dL (Negative) 02/18/22 Unknown Ur Protein (Man) 1+ mg/dL (Negative) 03/27/22 08:36 Urine Glucose (UA) Negative mg/dL (Negative) 02/18/22 Unknown Urine Ketones Negative mg/dL (Negative) 02/18/22 Unknown Ur Ketones (Man) Negative (Negative) 03/27/22 08:36 Urine Blood Trace (Negative) 02/18/22 Unknown Urine Nitrite Negative (Negative) 02/18/22 Unknown Ur Nitrite (Man) Negative (Negative) 03/27/22 08:36 Ur Reducing Substances Not Reportable 03/27/22 08:36 Urine Bilirubin Negative (Negative) 02/18/22 Unknown Urine Bilirubin (Man) Negative (Negative) 03/27/22 08:36 Urine Ictotest Not Reportable 03/27/22 08:36 Urine Urobilinogen < 2.0 mg/dL (<2.0) 02/18/22 Unknown Ur Leukocyte Esterase Negative (Negative) 02/18/22 Unknown Leukocyte Esterase (Man) Moderate (Negative) 03/27/22 08:36 Urine WBC (Auto) > 182.0 /HPF (0.0-6.0) H 03/27/22 08:36 Urine RBC (Auto) 9.0 /HPF (0.0-6.0) 03/27/22 08:36 U Epithel Cells (Auto) < 1.0 /HPF (0-13.0) 03/27/22 08:36 Urine RBC (Manual) 1+ (Negative) 03/27/22 08:36 Urine Mucus Few /HPF 03/27/22 08:36 Urine Yeast (Budding) 2+ /HPF 03/27/22 08:36 Urine Opiates Screen Negative 02/18/22 Unknown Urine Methadone Screen Negative 02/18/22 Unknown Ur Barbiturates Screen Negative 02/18/22 Unknown Ur Phencyclidine Scrn Negative 02/18/22 Unknown Ur Amphetamines Screen Negative 02/18/22 Unknown U Benzodiazepines Scrn Negative 02/18/22 Unknown Urine Cocaine Screen Negative 02/18/22 Unknown U Marijuana (THC) Screen Negative 02/18/22 Unknown Drugs of Abuse Note Disclamer 02/18/22 Unknown Plasma/Serum Alcohol < 0.01 % (0-0.07) 02/18/22 21:02 Summers/IV: Voiding Method Indwelling Catheter Active Medications - Current Medications Current Medications: Generic Name Dose Route Start Last Admin Trade Name Freq PRN Reason Stop Dose Admin Acetaminophen 650 mg 03/03/22 09:00 Acetaminophen 325 Mg/10.15 Ml Oral Liqd Unit Dose FEEDTUBE Q4H PRN Pain, Mild (1-3); TEMP > 100.4 Albuterol 2.5 mg 03/12/22 20:00 04/05/22 07:54 Albuterol 2.5 Mg/3 Ml Nebu IH 2.5 mg Q6HRT LAZARUS Administration Famotidine 20 mg 02/25/22 10:00 04/05/22 09:15 Famotidine 20 Mg Tab FEEDTUBE 20 mg BID LAZARUS Administration Heparin Sodium (Porcine) 5,000 unit 02/19/22 06:00 04/05/22 07:45 Heparin 5,000 Unit/1 Ml Vial SUB-Q 5,000 unit Q8HR LAZARUS Administration Levetiracetam 500 mg 02/25/22 22:00 04/05/22 09:14 Levetiracetam 500 Mg/5 Ml Oral Liqd FEEDTUBE 500 mg BID LAZARUS Administration Levothyroxine Sodium 25 mcg 02/26/22 06:00 04/05/22 07:45 Levothyroxine 25 Mcg Tab FEEDTUBE 25 mcg QAM@0600 LAZARUS Administration Magnesium Hydroxide 30 ml 02/19/22 02:02 04/03/22 04:14 Magnesium Hydroxide (Mom) Oral Liqd Udc PO 30 ml Q4H PRN Administration Constipation Midodrine 5 mg 04/03/22 12:00 04/05/22 09:15 Midodrine 5 Mg Tab FEEDTUBE 5 mg TID@0800,1200,1600 LAZAURS Administration Multi-Ingred Cream/Lotion/Oil/Oint 1 applic 02/24/22 15:05 Mineral Oil/Petrolatum, White Ophth Oint 3.5 Gm OU Q4HR PRN Dry Eye(s) Ondansetron HCl 4 mg 02/19/22 02:02 Ondansetron 4 Mg/2 Ml Inj IV Q8H PRN Nausea And Vomiting Pravastatin Sodium 40 mg 02/25/22 22:00 04/04/22 22:28 Pravastatin 40 Mg Tab FEEDTUBE 40 mg QHS LAZARUS Administration Senna/Docusate Sodium 1 tab 02/24/22 22:00 04/05/22 09:15 Sennosides/Docusate Sodium 8.6/50 Mg Tab FEEDTUBE 1 tab BID LAZARUS Administration Sodium Chloride 10 ml 02/19/22 10:00 04/05/22 09:17 Sodium Chloride 0.9% 10 Ml Flush Syringe IV 10 ml BID LAZARUS Administration Sodium Chloride 10 ml 02/19/22 02:02 03/03/22 14:21 Sodium Chloride 0.9% 10 Ml Flush Syringe IV 10 ml PRN PRN Administration LINE FLUSH Nutrition/Malnutrition Assess - Dietary Evaluation Nutrition/Malnutrition Findings: Nutrition Notes Start: 02/19/22 14:29 Freq: Status: Active Protocol: Document 04/04/22 13:07 IVAN (Rec: 04/04/22 13:10 IVAN [id number]) Nutrition Notes Initial or Follow up Brief Note Current Diet TF - Promote at 65ml/hr Subjective/Other Information Observed Promote infusing at goal rate of 65ml/hr. Pt tolerating TF at goal rate. BM documented on 04/01 and 04/03 . Pt remains on vent support. Percent of energy/protein needs met: 98% energy 100% pro Nutrition Intervention Follow-Up By: 04/11/22 Additional Comments F/U: stable TF, vent status, trach/PEG placement, BM
--- NOTE | 2022-04-05 12:09 | Progress Note ---
Assessment and Plan 61 y/o male with abnormal CT of chest. 04/05/2022:. Day #30 of intubation no significant change remains orally intubated on [facility]. We will continue with the current ventilator settings. We will try weaning and PSV trial once has trach. 04/04/22: Day 29 of intubation. Now with guardian, consent can be obtained. hopeful will have surgery sometime next week. Continue supportive measures including daily weaning trials. 04/03/22: Day [address] appointed guardian as it has been approved. 04/02/22: Day 37 of intubation. Continue daily PSV trials. Courts agree with guardianship now awaiting on one to be appointed. 04/01/22: Day 36 of intubation. Continue Daily PSV. Per CM awaiting guardian appointment as courts have agreed to this. 03/31/22: Day 35 of intubation. CBC and chemistry is stable. Awaiting courts and hospital. 03/30/22: Day 34 of intubation. No labs today. Monitor fever as he had low grade temp early am. Rocephin finished yesterday. 03/29/22: Day 33 of intubation. WC now normal. No fever. Hard stop date on the abx. Awaiting Hospital and Court about guardianship. 03/28/22: Day 32 of intubation. WBC better. No fever. Still awaiting hospital and courts. 03/27/22: Day 31 of intubation. Given increase in WBC will treat empirically with Rocephin. Follow up urine cultures. CXR appears stable, await official read. Guarded prognosis. 03/26/22: Day 30 of Intubation. Daily PSV trials. no new recommendations. 03/25/22: Day 29 of intubation. RT to try PSV this am, hesistant given low sats but improved with suctioning. Still no word from the hospital in regards to magdalena melo. I do not feel comfortable with attempting extubation again on this patient given his quick failure and difficult re-intubation. 03/24/22: Day 28 of intubation. reviewed my partners notes from the weekend. Glad patient is tolerating PSV however do not see conventional extubation in the near future given patient's mental status and how fast he failed extubation (within an hour) on his first attempt. Patient was also a difficult re- intubation. Follow up with and hospital tomorrow. Continue supportive measures. 03/21/22: Day 25 of intubation. No new updates from the hospital about guardianship. Wound care saw on yesterday. Continue daily PSV trials as tolerated. Guarded prognosis. 03/20/22: Day 24 of intubation. No new recommendations. Still awaiting hospital update in regards to guardianship so that decisions can be made. Continue supportive measures. Wound care to see today. 03/19/22: Day 23 of intubation. Prognosis is still guarded. Will discuss with RT about attempts at daily PSV trials. Per notes, Wound care to see , wound was present on admission. 03/18/22: Day 22 of intubation. Prognosis remains guarded. Not able to obtain trach and peg with consent. Continue daily PSV trials as tolerated. 03/17/22: Day 21 of intubation. Still awaiting some form of decision maker for trach and peg placement. Guarded prognosis. 03/16/22: Day 20 of intubation. BP stable. Continue midodrine. Awaiting emergency guardianship from Court to obtain consent for trach and peg. Guarded prognosis. 03/15/22: Day 19 of intubation. BP now is marginal more regularly. Will give an additional liter bolus of LR now. May need to increase Midodrine back to 5. Needs trach in order to be safely weaned from ventilator. Will need peg tube placement in addition to trach. Prognosis remains guarded. Continue PSV trials as tolerated. 03/14/22: Day 18 of intubation. Vitals stable and mental status is unchanged. Still in need of tracheostomy as well as peg tube placement. No guardian appointed yet. 03/13/22: Day 17 of intubation. Agree with bolus and restarting of midodrine. was stopped previously secondary to bradycardia. If patient spikes temp, will culture blood and urine and repeat CXR. Continue daily PSV trials to assess ability for vent liberation. Continues to need trach however no family/guardian to provide consent. Guarded prognosis. 03/12/22: Day 16 of intubation. Following up with hospital in regards to guardian. Continue supportive measures. Guarded prognosis. 03/11/22: hospital now attempting to find emergency guardian to have consent for trach as ethics committee cannot comment on this matter so unable to help. Until then will remain intubated orally. Failed PSV yesterday, will continue to attempt on daily basis. Unfortunate situation. Guarded prognosis. 03/10/22: Today nuñez day 14 of intubation. Given patient's mental state and increased risk of aspiration, the likelihood of conventional extubation with success is very very slim and the patient has already failed this in an extremely short period of time (less than 1 hour). I suspect that he will fail again if tried and could create more difficult reintubation as he was a difficult reintubation on his failed extubation attempt. To prevent further decline and potential complications of prolonged mechanical ventilation, will discuss with ethics and the hospital to use 2 physician consent to obtain trach and peg for this patient with hopes of liberating him from the mechanical ventilator. he has very minimal vent requirements but as been stated several times above, he continues to aspirate and failed conventional extubation almost immediately. Will consult surgery today. Dr. Mancia is prepared to sign consent as well as myself. Hopeful surgery will be on board with this. Continue supportive care for now. Attempt daily PSV trials. 03/07/22: Daily PSV trials as tolerated. Still no one to step up as adult friend. patient has now been intubated since 02/24/22 and is approaching the time period in which prolonged mechanical ventilation could lead to significant complications that could be detrimental to health (infection, stenosis, malacia etc). Will discuss again with ethics but in regards to medical necessity, may need to consider two physician consent if no one is able to claim responsibility for this patient. He is a full code and we must work in his best interest to prevent further harm. Continue supportive measures but he is not a candidate for conventional extubation given his mental state, despite being on minimal support. He has already failed this before. 03/06/22: PSV trials daily. Will discuss with RT. Spoke with ethics. Plan in place and awaiting on news from jail and state. Continue supportive measures. Patient has been intubated since 02/24/22 and is approaching the 2 week shadi of intubation will need to make decisions soon to avoid unnecessary complications related to prolonged intubation. 03/05/22: Will follow up with ethics today. Awaiting some guidance about consent for trach and peg. This is a medical necessity to liberate patient from mechanical ventilation. Continue supportive measures. Ok with daily PSV trials 03/04/22: Follow up with ethics later this afternoon. Spoke with RT and patient does have cuff leak, will stop steroids. Stopping midodrine as BP is stable and bradycardia likely from this. 03/03/22: Await ethics eval. CM has spoken with state as well. Daily cuff leaks. Will start to wean steroids tomorrow. Midodrine can cause bradycardia. If continues or worsens will stop. Guarded prognosis. 03/02/22: Continue supportive measures. Await ethics consult before surgery consult for trach and peg. no further need for fluid boluses. Will continue stress dose steroids but have daily air leak checks by RT. Still will need trach, will not attempt extubation again. Guarded prognosis. 03/01/22: Patient is having increased urine output. This could be the cause of new onset hypotension. Will bolus 2 more liters of LR now and reassess. If this continues may need to work up for SIADH including repeat head CT. Follow up ethics review of case. Will need trach for ventilator liberation. Overall prognosis remains guarded. 02/28/22: Will obtain CT neck, noncontrast to look for airway edema or other possible etiologies for failure. Needs ethics consult as given patient's mental state, inability to clear secretions appropriately, will need trach now that he has failed extubation. However he has no family and no POA so no one to give consent. Continue supportive measures. Guarded prognosis. 02/27/22: Continue improvement of oxygenation. Will drop PEEP down today with goal of being at 6 by in the morning. Will repeat CT scan to confirm improvement as no endobronchial lesion was seen, but also to make sure no par enchymal mass. There was no evidence of extrinsic compression during bronch. Likely extubation tomorrow post CT. 02/26/22: Repeat CXR now. Wean Vent as tolerated. Hopeful extubation soon. Mucous removed. NO ENDOBRONCHIAL LESION/MASS 02/25/22: Bronch tentatively planned for tomorrow with therapeutic scope. Awaiting GI lab to give a time. NPO after midnight. Continue high PEEP 02/24/22: WIll attempt to bronch tomorrow morning. NPO after midnight. Just received word from GI lab they are not able to do bronch tomorrow. Cancel NPO order. Continue to feed patient. Repeat ABG in AM along with CXR. 02/21/22: No new pulm recs for today. Please obtain repeat CXR likely on Thursday. If patient happens to get worse, likely not a candidate for bipap given his wea k cough and mental state and inability to communicate. If worsens and requires intubation, will bronch then under emergent circumstances if no POA or family is able to be located. Continue CPT. Will discuss with RT about NT suctioning. 02/20/22: Saw speech while on the floor. Would like patient to be NPO now. Discussed with nurse on floor and with IMS. Same recs pulm way as yesterday. Would benefit from bronch if able to get consent as this is not emergent. Continue CPT and q shift NT suctioning. Reviewed admission in the past and of note, patient was recently admitted last month and had a CXR done on the 29 of January that was normal. Given this patient's medical history and the history that I obtained from the nursing staff that [facility] he was eating solid foods, I suspect that this is aspiration, possibly of a foreign body (most likely food) with atelectasis of the right lower lobe. It is highly unlikely that a mass evolved in size in less than a months time and patient, besides age, has no real risk factors for lung carcinoma. Discussed with the nurse and unfortunately there is no identifiable person that is able to give consent. Bronchoscopy is needed in the case to evaluate to see if lung mass is there vs foreign body, but at this time not able to do. In the meanwhile will recommend the following. 1. Will order CPT with neb therapy 3x daily 2. Suggest maybe NT suctioning q shift. May use nasal trumpet, however do not leave this device in the patient 3. Aspiration precautions 4. Consider speech eval to assess swallowing. Will continue to follow. CCT 31 minutes. Subjective Date of service: 04/05/22 Principal diagnosis: f/u Acute respiratory failure Interval history: No significant change currently sleeping back on PRVC. Still orally intubated. Not have a court appointed guardian, he may be able to get trach and PEG in near future. Objective - Exam Narrative Exam: General appearance: Present: no acute distress, well-nourished, obese - EENT Eyes: Present: PERRL - Neck Neck: Present: normal ROM - Respiratory Respiratory effort: normal Respiratory: bilateral: rhonchi - Cardiovascular Rhythm: regular Heart Sounds: Present: S1 & S2 - Extremities Extremities: no ischemia, pulses intact, pulses symmetrical Extremity abnormal: edema - Peripheral Assessment Generalized Edema Type: Non-pitting Edema Degree: 1+ Capillary Refill: < 3 seconds Skin Temperature: Warm Peripheral Pulses: within normal limits - Abdominal General gastrointestinal: soft, non-distended, normal bowel sounds - Integumentary Integumentary: Present: warm, dry - Psychiatric Psychiatric: other (Intubated, unresponsive. Not on any sedations) - Neurologic Neurologic: moves all extremities, other (Intubated, unresponsive. Not on any sedations) - Allied Health Allied health notes reviewed: nursing, case management Vital Signs - 12hr 04/05/22 04/05/22 04/05/22 01:00 01:58 02:00 Temperature Pulse Rate 76 76 Pulse Rate [ 75 Anterior Bilateral Throughout] Pulse Rate [ From Monitor] Respiratory 14 14 Rate Respiratory 14 Rate [Anterior Bilateral Throughout] Blood Pressure 112/64 114/69 O2 Sat by Pulse 94 97 Oximetry 04/05/22 04/05/22 04/05/22 03:00 04:00 04:21 Temperature Pulse Rate 80 78 79 Pulse Rate [ Anterior Bilateral Throughout] Pulse Rate [ 77 From Monitor] Respiratory 15 15 Rate Respiratory Rate [Anterior Bilateral Throughout] Blood Pressure 117/69 117/67 116/69 O2 Sat by Pulse 96 97 99 Oximetry 04/05/22 04/05/22 04/05/22 04:27 05:00 06:00 Temperature 98.7 F Pulse Rate 80 79 Pulse Rate [ Anterior Bilateral Throughout] Pulse Rate [ From Monitor] Respiratory 16 16 Rate Respiratory Rate [Anterior Bilateral Throughout] Blood Pressure 115/73 114/65 O2 Sat by Pulse 98 95 Oximetry 04/05/22 04/05/22 04/05/22 07:00 07:55 07:57 Temperature Pulse Rate 81 80 Pulse Rate [ 85 Anterior Bilateral Throughout] Pulse Rate [ From Monitor] Respiratory 16 Rate Respiratory 22 Rate [Anterior Bilateral Throughout] Blood Pressure 110/70 110/70 O2 Sat by Pulse 96 96 Oximetry 04/05/22 04/05/22 04/05/22 08:00 08:03 08:10 Temperature 97.9 F Pulse Rate 78 Pulse Rate [ Anterior Bilateral Throughout] Pulse Rate [ From Monitor] Respiratory 14 Rate Respiratory Rate [Anterior Bilateral Throughout] Blood Pressure 100/58 O2 Sat by Pulse 95 98 96 Oximetry 04/05/22 04/05/22 09:00 10:00 Temperature Pulse Rate 77 70 Pulse Rate [ Anterior Bilateral Throughout] Pulse Rate [ From Monitor] Respiratory 10 L 11 L Rate Respiratory Rate [Anterior Bilateral Throughout] Blood Pressure 89/50 107/64 O2 Sat by Pulse 95 95 Oximetry Constitutional: alert, other (critically ill on ventilator) Eyes: non-icteric ENT: oropharynx moist Neck: supple Effort: normal Ascultation: Bilateral: diminished breath sounds, rhonchi Cardiovascular: regular rate and rhythm (no mrg) Gastrointestinal: normoactive bowel sounds, soft, non-tender (on o2 vest in place), non-distended Integumentary: normal Extremities: no cyanosis, no edema Neurologic: other (awake) Psychiatric: other (unable to assess) CBC and BMP: 04/03/22 04:04 04/03/22 04:04 ABG, PT/INR, D-dimer: ABG ABG pH 7.392 pH Units (7.350-7.450) 03/22/22 14:25 ABG pCO2 54.4 mm Hg 03/22/22 14:25 ABG pO2 150.5 mm Hg (80.0-90.0) H 03/22/22 14:25 ABG O2 Saturation 98.8 % (95.0-99.0) 03/22/22 14:25 PT/INR, D-dimer PT 15.2 Sec. (12.2-14.9) H 04/03/22 04:04 INR 1.05 (0.87-1.13) 04/03/22 04:04 Abnormal lab findings: Abnormal Labs 02/18/22 02/18/22 02/18/22 19:34 21:02 21:02 WBC RBC Hgb Hct MCV 101 H MCH 34 H MCHC RDW 16.1 H Lymph % (Auto) [place] % (Auto) 12.4 H Lymph # (Auto) [place] # (Auto) 1.2 H Seg Neutrophils % 73.0 H Seg Neuts % (Manual) Lymphocytes % (Manual) Seg Neutrophils # Seg Neutrophils # Man Lymphocytes # (Manual) PT 16.9 H INR 1.20 H ABG pH ABG pO2 ABG HCO3 ABG O2 Saturation ABG Base Excess ABG Hemoglobin Oxyhemoglobin Sodium Potassium Chloride Carbon Dioxide BUN Creatinine Glucose POC Glucose 116 H Calcium Phosphorus AST ALT Ammonia Albumin Urine WBC (Auto) 02/18/22 02/18/22 02/18/22 21:02 22:45 23:22 WBC RBC Hgb Hct MCV MCH MCHC RDW Lymph % (Auto) [place] % (Auto) Lymph # (Auto) [place] # (Auto) Seg Neutrophils % Seg Neuts % (Manual) Lymphocytes % (Manual) Seg Neutrophils # Seg Neutrophils # Man Lymphocytes # (Manual) PT INR ABG pH ABG pO2 55.6 L ABG HCO3 28.4 H ABG O2 Saturation 91.5 L ABG Base Excess 3.8 H ABG Hemoglobin 13.2 L Oxyhemoglobin 89.6 L Sodium Potassium 5.1 H Chloride Carbon Dioxide BUN Creatinine Glucose 102 H POC Glucose Calcium Phosphorus AST 48 H ALT 64 H Ammonia 14.0 L Albumin 2.7 L Urine WBC (Auto) 02/20/22 02/20/22 02/23/22 04:59 04:59 06:29 WBC 11.4 H RBC Hgb Hct MCV 103 H MCH 33 H MCHC RDW 16.5 H Lymph % (Auto) 5.5 L [place] % (Auto) 12.1 H Lymph # (Auto) 0.6 L [place] # (Auto) 1.4 H Seg Neutrophils % 81.4 H Seg Neuts % (Manual) Lymphocytes % (Manual) Seg Neutrophils # 9.2 H Seg Neutrophils # Man Lymphocytes # (Manual) PT INR ABG pH ABG pO2 ABG HCO3 ABG O2 Saturation ABG Base Excess ABG Hemoglobin Oxyhemoglobin Sodium Potassium Chloride Carbon Dioxide BUN Creatinine Glucose POC Glucose 113 H Calcium 8.2 L Phosphorus AST ALT Ammonia Albumin Urine WBC (Auto) 02/23/22 02/23/22 02/24/22 11:22 16:10 00:02 WBC RBC Hgb Hct MCV MCH MCHC RDW Lymph % (Auto) [place] % (Auto) Lymph # (Auto) [place] # (Auto) Seg Neutrophils % Seg Neuts % (Manual) Lymphocytes % (Manual) Seg Neutrophils # Seg Neutrophils # Man Lymphocytes # (Manual) PT INR ABG pH ABG pO2 ABG HCO3 ABG O2 Saturation ABG Base Excess ABG Hemoglobin Oxyhemoglobin Sodium Potassium Chloride Carbon Dioxide BUN Creatinine Glucose POC Glucose 108 H 115 H 109 H Calcium Phosphorus AST ALT Ammonia Albumin Urine WBC (Auto) 02/24/22 02/24/22 02/24/22 11:05 11:05 13:20 WBC RBC 3.55 L Hgb Hct MCV 100 H MCH 34 H MCHC RDW 15.6 H Lymph % (Auto) [place] % (Auto) Lymph # (Auto) [place] # (Auto) Seg Neutrophils % Seg Neuts % (Manual) Lymphocytes % (Manual) Seg Neutrophils # Seg Neutrophils # Man Lymphocytes # (Manual) PT INR ABG pH ABG pO2 ABG HCO3 ABG O2 Saturation ABG Base Excess ABG Hemoglobin Oxyhemoglobin Sodium 146 H Potassium 3.2 L D Chloride 108.4 H Carbon Dioxide BUN Creatinine 0.5 L Glucose POC Glucose 111 H Calcium 7.9 L Phosphorus 2.20 L AST ALT Ammonia Albumin Urine WBC (Auto) 02/24/22 02/24/22 02/24/22 16:30 17:03 20:25 WBC RBC Hgb Hct MCV MCH MCHC RDW Lymph % (Auto) [place] % (Auto) Lymph # (Auto) [place] # (Auto) Seg Neutrophils % Seg Neuts % (Manual) Lymphocytes % (Manual) Seg Neutrophils # Seg Neutrophils # Man Lymphocytes # (Manual) PT INR ABG pH 7.319 L ABG pO2 65.3 L ABG HCO3 31.3 H ABG O2 Saturation 92.2 L ABG Base Excess 3.8 H ABG Hemoglobin 12.0 L Oxyhemoglobin 90.3 L Sodium Potassium Chloride 107.9 H Carbon Dioxide BUN 8 L Creatinine 0.4 L Glucose POC Glucose 108 H Calcium 7.6 L Phosphorus 4.60 H D AST ALT Ammonia Albumin Urine WBC (Auto) 02/25/22 02/25/22 02/25/22 04:12 04:12 05:05 WBC RBC 3.07 L Hgb 10.2 L Hct 31.5 L MCV 103 H MCH 33 H MCHC RDW 15.6 H Lymph % (Auto) [place] % (Auto) Lymph # (Auto) [place] # (Auto) Seg Neutrophils % Seg Neuts % (Manual) Lymphocytes % (Manual) Seg Neutrophils # Seg Neutrophils # Man Lymphocytes # (Manual) PT INR ABG pH ABG pO2 ABG HCO3 32.5 H ABG O2 Saturation ABG Base Excess 5.6 H ABG Hemoglobin 10.8 L Oxyhemoglobin 94.8 L Sodium Potassium 3.5 L Chloride 107.7 H Carbon Dioxide BUN Creatinine 0.5 L Glucose POC Glucose Calcium 7.0 L Phosphorus AST ALT Ammonia Albumin Urine WBC (Auto) 02/25/22 02/25/22 02/26/22 12:05 18:33 00:07 WBC RBC Hgb Hct MCV MCH MCHC RDW Lymph % (Auto) [place] % (Auto) Lymph # (Auto) [place] # (Auto) Seg Neutrophils % Seg Neuts % (Manual) Lymphocytes % (Manual) Seg Neutrophils # Seg Neutrophils # Man Lymphocytes # (Manual) PT INR ABG pH ABG pO2 ABG HCO3 ABG O2 Saturation ABG Base Excess ABG Hemoglobin Oxyhemoglobin Sodium Potassium Chloride Carbon Dioxide BUN Creatinine Glucose POC Glucose 127 H 125 H 114 H Calcium Phosphorus AST ALT Ammonia Albumin Urine WBC (Auto) 02/26/22 02/26/22 02/26/22 03:30 04:42 11:34 WBC RBC Hgb Hct MCV MCH MCHC RDW Lymph % (Auto) [place] % (Auto) Lymph # (Auto) [place] # (Auto) Seg Neutrophils % Seg Neuts % (Manual) Lymphocytes % (Manual) Seg Neutrophils # Seg Neutrophils # Man Lymphocytes # (Manual) PT INR ABG pH ABG pO2 143.2 H ABG HCO3 33.2 H ABG O2 Saturation ABG Base Excess 6.5 H ABG Hemoglobin 9.4 L Oxyhemoglobin Sodium Potassium Chloride Carbon Dioxide 32 H BUN Creatinine 0.7 L Glucose POC Glucose 114 H Calcium 8.0 L Phosphorus AST ALT Ammonia Albumin Urine WBC (Auto) 02/26/22 02/26/22 02/27/22 18:17 23:37 04:19 WBC 13.7 H RBC 2.78 L Hgb 9.3 L Hct 28.5 L MCV 103 H MCH 33 H MCHC RDW 16.3 H Lymph % (Auto) [place] % (Auto) Lymph # (Auto) [place] # (Auto) Seg Neutrophils % Seg Neuts % (Manual) Lymphocytes % (Manual) Seg Neutrophils # Seg Neutrophils # Man Lymphocytes # (Manual) PT INR ABG pH ABG pO2 ABG HCO3 ABG O2 Saturation ABG Base Excess ABG Hemoglobin Oxyhemoglobin Sodium Potassium Chloride Carbon Dioxide BUN Creatinine Glucose POC Glucose 111 H 117 H Calcium Phosphorus AST ALT Ammonia Albumin Urine WBC (Auto) 02/27/22 02/27/22 02/27/22 04:19 04:35 05:27 WBC RBC Hgb Hct MCV MCH MCHC RDW Lymph % (Auto) [place] % (Auto) Lymph # (Auto) [place] # (Auto) Seg Neutrophils % Seg Neuts % (Manual) Lymphocytes % (Manual) Seg Neutrophils # Seg Neutrophils # Man Lymphocytes # (Manual) PT INR ABG pH ABG pO2 96.3 H ABG HCO3 34.9 H ABG O2 Saturation ABG Base Excess 8.1 H ABG Hemoglobin Oxyhemoglobin Sodium Potassium Chloride Carbon Dioxide 31 H BUN Creatinine 0.6 L Glucose 107 H POC Glucose 133 H Calcium 7.8 L Phosphorus AST ALT Ammonia Albumin Urine WBC (Auto) 02/27/22 02/27/22 02/28/22 11:15 23:35 03:38 WBC 13.3 H RBC 3.05 L Hgb 10.2 L Hct 30.7 L MCV 101 H MCH 33 H MCHC RDW 16.1 H Lymph % (Auto) [place] % (Auto) Lymph # (Auto) [place] # (Auto) Seg Neutrophils % Seg Neuts % (Manual) Lymphocytes % (Manual) Seg Neutrophils # Seg Neutrophils # Man Lymphocytes # (Manual) PT INR ABG pH ABG pO2 ABG HCO3 ABG O2 Saturation ABG Base Excess ABG Hemoglobin Oxyhemoglobin Sodium Potassium Chloride Carbon Dioxide BUN Creatinine Glucose POC Glucose 129 H 122 H Calcium Phosphorus AST ALT Ammonia Albumin Urine WBC (Auto) 02/28/22 02/28/22 02/28/22 04:50 05:30 09:30 WBC RBC Hgb Hct MCV MCH MCHC RDW Lymph % (Auto) [place] % (Auto) Lymph # (Auto) [place] # (Auto) Seg Neutrophils % Seg Neuts % (Manual) Lymphocytes % (Manual) Seg Neutrophils # Seg Neutrophils # Man Lymphocytes # (Manual) PT INR ABG pH 7.451 H 7.488 H ABG pO2 77.0 L ABG HCO3 37.1 H 34.6 H ABG O2 Saturation ABG Base Excess 11.5 H 10.1 H ABG Hemoglobin 10.1 L 10.0 L Oxyhemoglobin Sodium Potassium Chloride Carbon Dioxide BUN Creatinine Glucose POC Glucose 121 H Calcium Phosphorus AST ALT Ammonia Albumin Urine WBC (Auto) 02/28/22 02/28/22 03/01/22 11:36 23:07 04:27 WBC 12.5 H RBC 2.85 L Hgb 9.5 L Hct 28.6 L MCV 101 H MCH 33 H MCHC RDW 15.7 H Lymph % (Auto) [place] % (Auto) Lymph # (Auto) [place] # (Auto) Seg Neutrophils % Seg Neuts % (Manual) Lymphocytes % (Manual) Seg Neutrophils # Seg Neutrophils # Man Lymphocytes # (Manual) PT INR ABG pH ABG pO2 ABG HCO3 ABG O2 Saturation ABG Base Excess ABG Hemoglobin Oxyhemoglobin Sodium Potassium Chloride Carbon Dioxide BUN Creatinine Glucose POC Glucose 112 H 107 H Calcium Phosphorus AST ALT Ammonia Albumin Urine WBC (Auto) 03/01/22 03/01/22 03/01/22 04:27 05:05 11:29 WBC RBC Hgb Hct MCV MCH MCHC RDW Lymph % (Auto) [place] % (Auto) Lymph # (Auto) [place] # (Auto) Seg Neutrophils % Seg Neuts % (Manual) Lymphocytes % (Manual) Seg Neutrophils # Seg Neutrophils # Man Lymphocytes # (Manual) PT INR ABG pH ABG pO2 ABG HCO3 ABG O2 Saturation ABG Base Excess ABG Hemoglobin Oxyhemoglobin Sodium 147 H D Potassium Chloride Carbon Dioxide 34 H BUN Creatinine 0.6 L Glucose 128 H POC Glucose 119 H 121 H Calcium 7.9 L Phosphorus AST ALT Ammonia Albumin Urine WBC (Auto) 03/01/22 03/01/22 03/02/22 16:15 23:57 05:18 WBC RBC Hgb Hct MCV MCH MCHC RDW Lymph % (Auto) [place] % (Auto) Lymph # (Auto) [place] # (Auto) Seg Neutrophils % Seg Neuts % (Manual) Lymphocytes % (Manual) Seg Neutrophils # Seg Neutrophils # Man Lymphocytes # (Manual) PT INR ABG pH ABG pO2 110.5 H ABG HCO3 33.0 H ABG O2 Saturation ABG Base Excess 7.4 H ABG Hemoglobin 8.6 L Oxyhemoglobin Sodium Potassium Chloride Carbon Dioxide BUN Creatinine Glucose POC Glucose 134 H 140 H Calcium Phosphorus AST ALT Ammonia Albumin Urine WBC (Auto) 03/02/22 03/02/22 03/02/22 05:53 09:04 09:04 WBC 15.0 H RBC 3.00 L Hgb 9.7 L Hct 30.7 L MCV 102 H MCH MCHC RDW 16.6 H Lymph % (Auto) [place] % (Auto) Lymph # (Auto) [place] # (Auto) Seg Neutrophils % Seg Neuts % (Manual) Lymphocytes % (Manual) Seg Neutrophils # Seg Neutrophils # Man Lymphocytes # (Manual) PT INR ABG pH ABG pO2 ABG HCO3 ABG O2 Saturation ABG Base Excess ABG Hemoglobin Oxyhemoglobin Sodium Potassium Chloride Carbon Dioxide 31 H BUN Creatinine 0.6 L Glucose 157 H POC Glucose 158 H Calcium 7.9 L Phosphorus AST ALT Ammonia Albumin Urine WBC (Auto) 03/02/22 03/02/22 03/02/22 11:36 16:25 23:17 WBC RBC Hgb Hct MCV MCH MCHC RDW Lymph % (Auto) [place] % (Auto) Lymph # (Auto) [place] # (Auto) Seg Neutrophils % Seg Neuts % (Manual) Lymphocytes % (Manual) Seg Neutrophils # Seg Neutrophils # Man Lymphocytes # (Manual) PT INR ABG pH ABG pO2 ABG HCO3 ABG O2 Saturation ABG Base Excess ABG Hemoglobin Oxyhemoglobin Sodium Potassium Chloride Carbon Dioxide BUN Creatinine Glucose POC Glucose 160 H 132 H 157 H Calcium Phosphorus AST ALT Ammonia Albumin Urine WBC (Auto) 03/03/22 03/03/22 03/03/22 03:54 03:54 05:27 WBC 19.5 H RBC 2.79 L Hgb 9.0 L Hct 28.6 L MCV 102 H MCH MCHC RDW 16.2 H Lymph % (Auto) [place] % (Auto) Lymph # (Auto) [place] # (Auto) Seg Neutrophils % Seg Neuts % (Manual) 95.0 H Lymphocytes % (Manual) 3.0 L Seg Neutrophils # Seg Neutrophils # Man 18.5 H Lymphocytes # (Manual) 0.6 L PT INR ABG pH ABG pO2 ABG HCO3 ABG O2 Saturation ABG Base Excess ABG Hemoglobin Oxyhemoglobin Sodium Potassium Chloride Carbon Dioxide BUN Creatinine 0.6 L Glucose 130 H POC Glucose 149 H Calcium 8.1 L Phosphorus AST ALT Ammonia Albumin Urine WBC (Auto) 03/03/22 03/03/22 03/04/22 11:13 17:30 00:02 WBC RBC Hgb Hct MCV MCH MCHC RDW Lymph % (Auto) [place] % (Auto) Lymph # (Auto) [place] # (Auto) Seg Neutrophils % Seg Neuts % (Manual) Lymphocytes % (Manual) Seg Neutrophils # Seg Neutrophils # Man Lymphocytes # (Manual) PT INR ABG pH ABG pO2 ABG HCO3 ABG O2 Saturation ABG Base Excess ABG Hemoglobin Oxyhemoglobin Sodium Potassium Chloride Carbon Dioxide BUN Creatinine Glucose POC Glucose 139 H 138 H 157 H Calcium Phosphorus AST ALT Ammonia Albumin Urine WBC (Auto) 0803/04/22 03/04/22 05:32 05:32 05:48 WBC 16.1 H RBC 2.81 L Hgb 9.3 L Hct 28.8 L MCV 102 H MCH 33 H MCHC RDW 16.7 H Lymph % (Auto) [place] % (Auto) Lymph # (Auto) [place] # (Auto) Seg Neutrophils % Seg Neuts % (Manual) Lymphocytes % (Manual) Seg Neutrophils # Seg Neutrophils # Man Lymphocytes # (Manual) PT INR ABG pH ABG pO2 ABG HCO3 ABG O2 Saturation ABG Base Excess ABG Hemoglobin Oxyhemoglobin Sodium Potassium Chloride Carbon Dioxide BUN Creatinine 0.7 L Glucose 135 H POC Glucose 145 H Calcium 8.3 L Phosphorus AST ALT Ammonia Albumin Urine WBC (Auto) 03/04/22 03/04/22 03/05/22 11:34 16:29 00:28 WBC RBC Hgb Hct MCV MCH MCHC RDW Lymph % (Auto) [place] % (Auto) Lymph # (Auto) [place] # (Auto) Seg Neutrophils % Seg Neuts % (Manual) Lymphocytes % (Manual) Seg Neutrophils # Seg Neutrophils # Man Lymphocytes # (Manual) PT INR ABG pH ABG pO2 ABG HCO3 ABG O2 Saturation ABG Base Excess ABG Hemoglobin Oxyhemoglobin Sodium Potassium Chloride Carbon Dioxide BUN Creatinine Glucose POC Glucose 148 H 140 H 116 H Calcium Phosphorus AST ALT Ammonia Albumin Urine WBC (Auto) 03/05/22 03/05/22 03/05/22 06:29 11:30 17:38 WBC RBC Hgb Hct MCV MCH MCHC RDW Lymph % (Auto) [place] % (Auto) Lymph # (Auto) [place] # (Auto) Seg Neutrophils % Seg Neuts % (Manual) Lymphocytes % (Manual) Seg Neutrophils # Seg Neutrophils # Man Lymphocytes # (Manual) PT INR ABG pH ABG pO2 ABG HCO3 ABG O2 Saturation ABG Base Excess ABG Hemoglobin Oxyhemoglobin Sodium Potassium Chloride Carbon Dioxide BUN Creatinine Glucose POC Glucose 114 H 114 H 117 H Calcium Phosphorus AST ALT Ammonia Albumin Urine WBC (Auto) 03/06/22 03/06/22 03/06/22 04:17 04:17 06:06 WBC 13.4 H RBC 2.85 L Hgb 9.4 L Hct 29.0 L MCV 102 H MCH 33 H MCHC RDW 16.4 H Lymph % (Auto) [place] % (Auto) Lymph # (Auto) [place] # (Auto) Seg Neutrophils % Seg Neuts % (Manual) Lymphocytes % (Manual) Seg Neutrophils # Seg Neutrophils # Man Lymphocytes # (Manual) PT INR ABG pH ABG pO2 ABG HCO3 ABG O2 Saturation ABG Base Excess ABG Hemoglobin Oxyhemoglobin Sodium Potassium 3.5 L Chloride Carbon Dioxide 31 H BUN Creatinine 0.6 L Glucose 101 H POC Glucose 106 H Calcium 7.7 L Phosphorus 2.00 L AST ALT Ammonia Albumin Urine WBC (Auto) 03/06/22 03/06/22 03/07/22 18:04 23:50 05:14 WBC RBC Hgb Hct MCV MCH MCHC RDW Lymph % (Auto) [place] % (Auto) Lymph # (Auto) [place] # (Auto) Seg Neutrophils % Seg Neuts % (Manual) Lymphocytes % (Manual) Seg Neutrophils # Seg Neutrophils # Man Lymphocytes # (Manual) PT INR ABG pH ABG pO2 ABG HCO3 ABG O2 Saturation ABG Base Excess ABG Hemoglobin Oxyhemoglobin Sodium Potassium Chloride Carbon Dioxide BUN Creatinine Glucose POC Glucose 108 H 115 H 116 H Calcium Phosphorus AST ALT Ammonia Albumin Urine WBC (Auto) 03/07/22 03/07/22 03/08/22 11:42 18:13 04:34 WBC RBC 2.86 L Hgb 9.2 L Hct 29.3 L MCV 103 H MCH MCHC 31 L RDW 16.9 H Lymph % (Auto) [place] % (Auto) Lymph # (Auto) [place] # (Auto) Seg Neutrophils % Seg Neuts % (Manual) Lymphocytes % (Manual) Seg Neutrophils # Seg Neutrophils # Man Lymphocytes # (Manual) PT INR ABG pH ABG pO2 ABG HCO3 ABG O2 Saturation ABG Base Excess ABG Hemoglobin Oxyhemoglobin Sodium Potassium Chloride Carbon Dioxide BUN Creatinine Glucose POC Glucose 123 H 109 H Calcium Phosphorus AST ALT Ammonia Albumin Urine WBC (Auto) 03/08/22 03/08/22 03/08/22 04:34 11:29 16:34 WBC RBC Hgb Hct MCV MCH MCHC RDW Lymph % (Auto) [place] % (Auto) Lymph # (Auto) [place] # (Auto) Seg Neutrophils % Seg Neuts % (Manual) Lymphocytes % (Manual) Seg Neutrophils # Seg Neutrophils # Man Lymphocytes # (Manual) PT INR ABG pH ABG pO2 ABG HCO3 ABG O2 Saturation ABG Base Excess ABG Hemoglobin Oxyhemoglobin Sodium Potassium Chloride Carbon Dioxide 33 H BUN Creatinine 0.5 L Glucose 109 H POC Glucose 117 H 109 H Calcium 7.6 L Phosphorus AST ALT Ammonia Albumin Urine WBC (Auto) 03/08/22 03/09/22 03/10/22 23:56 11:15 03:57 WBC RBC 2.99 L Hgb 9.9 L Hct 30.3 L MCV 102 H MCH 33 H MCHC RDW 16.8 H Lymph % (Auto) 13.3 L [place] % (Auto) 12.5 H Lymph # (Auto) [place] # (Auto) 1.3 H Seg Neutrophils % 72.4 H Seg Neuts % (Manual) Lymphocytes % (Manual) Seg Neutrophils # Seg Neutrophils # Man Lymphocytes # (Manual) PT INR ABG pH ABG pO2 ABG HCO3 ABG O2 Saturation ABG Base Excess ABG Hemoglobin Oxyhemoglobin Sodium Potassium Chloride Carbon Dioxide BUN Creatinine Glucose POC Glucose 106 H 110 H Calcium Phosphorus AST ALT Ammonia Albumin Urine WBC (Auto) 03/10/22 03/10/22 03/10/22 03:57 04:50 16:04 WBC RBC Hgb Hct MCV MCH MCHC RDW Lymph % (Auto) [place] % (Auto) Lymph # (Auto) [place] # (Auto) Seg Neutrophils % Seg Neuts % (Manual) Lymphocytes % (Manual) Seg Neutrophils # Seg Neutrophils # Man Lymphocytes # (Manual) PT INR ABG pH 7.465 H ABG pO2 ABG HCO3 31.9 H ABG O2 Saturation ABG Base Excess 7.3 H ABG Hemoglobin 11.0 L Oxyhemoglobin Sodium Potassium 3.4 L Chloride Carbon Dioxide BUN Creatinine 0.6 L Glucose POC Glucose 115 H Calcium 8.1 L Phosphorus AST ALT Ammonia Albumin 1.9 L Urine WBC (Auto) 03/11/22 03/11/22 03/11/22 04:02 04:02 04:02 WBC 12.0 H RBC 2.81 L Hgb 9.2 L Hct 29.1 L MCV 103 H MCH 33 H MCHC RDW 17.5 H Lymph % (Auto) [place] % (Auto) Lymph # (Auto) [place] # (Auto) Seg Neutrophils % Seg Neuts % (Manual) Lymphocytes % (Manual) Seg Neutrophils # Seg Neutrophils # Man Lymphocytes # (Manual) PT 16.2 H INR 1.16 H ABG pH ABG pO2 ABG HCO3 ABG O2 Saturation ABG Base Excess ABG Hemoglobin Oxyhemoglobin Sodium Potassium Chloride Carbon Dioxide BUN Creatinine 0.5 L Glucose 104 H POC Glucose Calcium 7.9 L Phosphorus AST ALT Ammonia Albumin Urine WBC (Auto) 03/11/22 03/11/22 03/11/22 05:10 11:07 16:32 WBC RBC Hgb Hct MCV MCH MCHC RDW Lymph % (Auto) [place] % (Auto) Lymph # (Auto) [place] # (Auto) Seg Neutrophils % Seg Neuts % (Manual) Lymphocytes % (Manual) Seg Neutrophils # Seg Neutrophils # Man Lymphocytes # (Manual) PT INR ABG pH 7.476 H ABG pO2 ABG HCO3 29.7 H ABG O2 Saturation ABG Base Excess 5.7 H ABG Hemoglobin 9.1 L Oxyhemoglobin Sodium Potassium Chloride Carbon Dioxide BUN Creatinine Glucose POC Glucose 108 H 121 H Calcium Phosphorus AST ALT Ammonia Albumin Urine WBC (Auto) 03/12/22 03/13/22 03/13/22 05:51 06:08 12:02 WBC RBC 2.73 L Hgb 9.0 L Hct 27.5 L MCV 101 H MCH 33 H MCHC RDW 17.2 H Lymph % (Auto) [place] % (Auto) Lymph # (Auto) [place] # (Auto) Seg Neutrophils % Seg Neuts % (Manual) Lymphocytes % (Manual) Seg Neutrophils # Seg Neutrophils # Man Lymphocytes # (Manual) PT INR ABG pH ABG pO2 ABG HCO3 ABG O2 Saturation ABG Base Excess ABG Hemoglobin Oxyhemoglobin Sodium Potassium Chloride Carbon Dioxide BUN Creatinine Glucose POC Glucose 116 H 111 H Calcium Phosphorus AST ALT Ammonia Albumin Urine WBC (Auto) 03/13/22 03/13/22 03/14/22 12:48 18:17 03:58 WBC RBC 2.97 L Hgb 9.7 L Hct 30.0 L MCV 101 H MCH 33 H MCHC RDW 16.7 H Lymph % (Auto) [place] % (Auto) Lymph # (Auto) [place] # (Auto) Seg Neutrophils % Seg Neuts % (Manual) Lymphocytes % (Manual) Seg Neutrophils # Seg Neutrophils # Man Lymphocytes # (Manual) PT INR ABG pH ABG pO2 ABG HCO3 ABG O2 Saturation ABG Base Excess ABG Hemoglobin Oxyhemoglobin Sodium Potassium Chloride Carbon Dioxide BUN Creatinine Glucose POC Glucose 125 H 114 H Calcium Phosphorus AST ALT Ammonia Albumin Urine WBC (Auto) 03/14/22 03/14/22 03/14/22 03:58 13:01 16:41 WBC RBC Hgb Hct MCV MCH MCHC RDW Lymph % (Auto) [place] % (Auto) Lymph # (Auto) [place] # (Auto) Seg Neutrophils % Seg Neuts % (Manual) Lymphocytes % (Manual) Seg Neutrophils # Seg Neutrophils # Man Lymphocytes # (Manual) PT INR ABG pH ABG pO2 ABG HCO3 ABG O2 Saturation ABG Base Excess ABG Hemoglobin Oxyhemoglobin Sodium Potassium Chloride Carbon Dioxide BUN Creatinine 0.6 L Glucose POC Glucose 118 H 109 H Calcium 8.2 L Phosphorus AST ALT Ammonia Albumin Urine WBC (Auto) 03/16/22 03/16/22 03/17/22 05:28 05:28 23:19 WBC RBC 2.81 L Hgb 9.1 L Hct 27.8 L MCV 99 H MCH MCHC RDW 17.0 H Lymph % (Auto) [place] % (Auto) Lymph # (Auto) [place] # (Auto) Seg Neutrophils % Seg Neuts % (Manual) Lymphocytes % (Manual) Seg Neutrophils # Seg Neutrophils # Man Lymphocytes # (Manual) PT INR ABG pH ABG pO2 ABG HCO3 ABG O2 Saturation ABG Base Excess ABG Hemoglobin Oxyhemoglobin Sodium Potassium Chloride Carbon Dioxide BUN Creatinine 0.5 L Glucose POC Glucose 113 H Calcium 8.2 L Phosphorus AST ALT Ammonia Albumin Urine WBC (Auto) 03/20/22 03/20/22 03/20/22 04:09 04:09 17:22 WBC RBC 2.90 L Hgb 9.6 L Hct 28.9 L MCV 100 H MCH 33 H MCHC RDW 17.4 H Lymph % (Auto) [place] % (Auto) Lymph # (Auto) [place] # (Auto) Seg Neutrophils % Seg Neuts % (Manual) Lymphocytes % (Manual) Seg Neutrophils # Seg Neutrophils # Man Lymphocytes # (Manual) PT INR ABG pH ABG pO2 ABG HCO3 ABG O2 Saturation ABG Base Excess ABG Hemoglobin Oxyhemoglobin Sodium Potassium Chloride Carbon Dioxide BUN Creatinine 0.6 L Glucose POC Glucose 110 H Calcium 8.2 L Phosphorus AST ALT Ammonia Albumin Urine WBC (Auto) 03/21/22 03/21/22 03/22/22 18:24 23:09 12:18 WBC RBC Hgb Hct MCV MCH MCHC RDW Lymph % (Auto) [place] % (Auto) Lymph # (Auto) [place] # (Auto) Seg Neutrophils % Seg Neuts % (Manual) Lymphocytes % (Manual) Seg Neutrophils # Seg Neutrophils # Man Lymphocytes # (Manual) PT INR ABG pH ABG pO2 ABG HCO3 ABG O2 Saturation ABG Base Excess ABG Hemoglobin Oxyhemoglobin Sodium Potassium Chloride Carbon Dioxide BUN Creatinine Glucose POC Glucose 110 H 107 H 106 H Calcium Phosphorus AST ALT Ammonia Albumin Urine WBC (Auto) 03/22/22 03/23/22 03/23/22 14:25 00:21 11:31 WBC RBC Hgb Hct MCV MCH MCHC RDW Lymph % (Auto) [place] % (Auto) Lymph # (Auto) [place] # (Auto) Seg Neutrophils % Seg Neuts % (Manual) Lymphocytes % (Manual) Seg Neutrophils # Seg Neutrophils # Man Lymphocytes # (Manual) PT INR ABG pH ABG pO2 150.5 H ABG HCO3 32.4 H ABG O2 Saturation ABG Base Excess 6.2 H ABG Hemoglobin 11.4 L Oxyhemoglobin Sodium Potassium Chloride Carbon Dioxide BUN Creatinine Glucose POC Glucose 107 H 110 H Calcium Phosphorus AST ALT Ammonia Albumin Urine WBC (Auto) 03/24/22 03/24/22 03/24/22 03:47 03:47 05:56 WBC RBC 3.18 L Hgb 10.1 L Hct 31.1 L MCV 98 H MCH MCHC RDW 17.4 H Lymph % (Auto) [place] % (Auto) Lymph # (Auto) [place] # (Auto) Seg Neutrophils % Seg Neuts % (Manual) Lymphocytes % (Manual) Seg Neutrophils # Seg Neutrophils # Man Lymphocytes # (Manual) PT INR ABG pH ABG pO2 ABG HCO3 ABG O2 Saturation ABG Base Excess ABG Hemoglobin Oxyhemoglobin Sodium Potassium Chloride Carbon Dioxide BUN Creatinine 0.5 L Glucose POC Glucose 107 H Calcium Phosphorus AST ALT Ammonia Albumin Urine WBC (Auto) 03/24/22 03/25/22 03/25/22 11:15 00:14 11:24 WBC RBC Hgb Hct MCV MCH MCHC RDW Lymph % (Auto) [place] % (Auto) Lymph # (Auto) [place] # (Auto) Seg Neutrophils % Seg Neuts % (Manual) Lymphocytes % (Manual) Seg Neutrophils # Seg Neutrophils # Man Lymphocytes # (Manual) PT INR ABG pH ABG pO2 ABG HCO3 ABG O2 Saturation ABG Base Excess ABG Hemoglobin Oxyhemoglobin Sodium Potassium Chloride Carbon Dioxide BUN Creatinine Glucose POC Glucose 126 H 109 H 110 H Calcium Phosphorus AST ALT Ammonia Albumin Urine WBC (Auto) 03/25/22 03/26/22 03/26/22 16:27 05:18 11:15 WBC RBC Hgb Hct MCV MCH MCHC RDW Lymph % (Auto) [place] % (Auto) Lymph # (Auto) [place] # (Auto) Seg Neutrophils % Seg Neuts % (Manual) Lymphocytes % (Manual) Seg Neutrophils # Seg Neutrophils # Man Lymphocytes # (Manual) PT INR ABG pH ABG pO2 ABG HCO3 ABG O2 Saturation ABG Base Excess ABG Hemoglobin Oxyhemoglobin Sodium Potassium Chloride Carbon Dioxide BUN Creatinine Glucose POC Glucose 123 H 114 H 135 H Calcium Phosphorus AST ALT Ammonia Albumin Urine WBC (Auto) 03/26/22 03/27/22 03/27/22 18:08 03:52 03:52 WBC 17.1 H RBC 2.94 L Hgb 9.2 L Hct 29.3 L MCV 100 H MCH MCHC 31 L RDW 17.5 H Lymph % (Auto) [place] % (Auto) Lymph # (Auto) [place] # (Auto) Seg Neutrophils % Seg Neuts % (Manual) Lymphocytes % (Manual) Seg Neutrophils # Seg Neutrophils # Man Lymphocytes # (Manual) PT INR ABG pH ABG pO2 ABG HCO3 ABG O2 Saturation ABG Base Excess ABG Hemoglobin Oxyhemoglobin Sodium 136 L Potassium Chloride Carbon Dioxide 32 H BUN 23 H Creatinine 0.6 L Glucose POC Glucose 130 H Calcium 8.2 L Phosphorus AST ALT Ammonia Albumin Urine WBC (Auto) 03/27/22 03/27/22 03/27/22 08:36 12:55 18:27 WBC RBC Hgb Hct MCV MCH MCHC RDW Lymph % (Auto) [place] % (Auto) Lymph # (Auto) [place] # (Auto) Seg Neutrophils % Seg Neuts % (Manual) Lymphocytes % (Manual) Seg Neutrophils # Seg Neutrophils # Man Lymphocytes # (Manual) PT INR ABG pH ABG pO2 ABG HCO3 ABG O2 Saturation ABG Base Excess ABG Hemoglobin Oxyhemoglobin Sodium Potassium Chloride Carbon Dioxide BUN Creatinine Glucose POC Glucose 137 H 114 H Calcium Phosphorus AST ALT Ammonia Albumin Urine WBC (Auto) > 182.0 H 03/28/22 03/28/22 03/28/22 01:00 04:06 04:52 WBC 14.2 H RBC 2.76 L Hgb 8.6 L Hct 26.8 L MCV 97 H MCH MCHC RDW 17.4 H Lymph % (Auto) 7.5 L [place] % (Auto) 10.5 H Lymph # (Auto) 1.1 L [place] # (Auto) 1.5 H Seg Neutrophils % 80.7 H Seg Neuts % (Manual) Lymphocytes % (Manual) Seg Neutrophils # 11.4 H Seg Neutrophils # Man Lymphocytes # (Manual) PT INR ABG pH ABG pO2 ABG HCO3 ABG O2 Saturation ABG Base Excess ABG Hemoglobin Oxyhemoglobin Sodium Potassium Chloride Carbon Dioxide BUN Creatinine Glucose POC Glucose 111 H 111 H Calcium Phosphorus AST ALT Ammonia Albumin Urine WBC (Auto) 03/28/22 03/28/22 03/29/22 12:09 23:23 04:22 WBC RBC 2.85 L Hgb 8.9 L Hct 27.8 L MCV 98 H MCH MCHC RDW 17.8 H Lymph % (Auto) [place] % (Auto) Lymph # (Auto) [place] # (Auto) Seg Neutrophils % Seg Neuts % (Manual) Lymphocytes % (Manual) Seg Neutrophils # Seg Neutrophils # Man Lymphocytes # (Manual) PT INR ABG pH ABG pO2 ABG HCO3 ABG O2 Saturation ABG Base Excess ABG Hemoglobin Oxyhemoglobin Sodium Potassium Chloride Carbon Dioxide BUN Creatinine Glucose POC Glucose 114 H 112 H Calcium Phosphorus AST ALT Ammonia Albumin Urine WBC (Auto) 03/29/22 03/29/22 03/29/22 05:56 12:22 23:39 WBC RBC Hgb Hct MCV MCH MCHC RDW Lymph % (Auto) [place] % (Auto) Lymph # (Auto) [place] # (Auto) Seg Neutrophils % Seg Neuts % (Manual) Lymphocytes % (Manual) Seg Neutrophils # Seg Neutrophils # Man Lymphocytes # (Manual) PT INR ABG pH ABG pO2 ABG HCO3 ABG O2 Saturation ABG Base Excess ABG Hemoglobin Oxyhemoglobin Sodium Potassium Chloride Carbon Dioxide BUN Creatinine Glucose POC Glucose 116 H 130 H 121 H Calcium Phosphorus AST ALT Ammonia Albumin Urine WBC (Auto) 03/30/22 03/30/22 03/30/22 11:52 16:04 23:05 WBC RBC Hgb Hct MCV MCH MCHC RDW Lymph % (Auto) [place] % (Auto) Lymph # (Auto) [place] # (Auto) Seg Neutrophils % Seg Neuts % (Manual) Lymphocytes % (Manual) Seg Neutrophils # Seg Neutrophils # Man Lymphocytes # (Manual) PT INR ABG pH ABG pO2 ABG HCO3 ABG O2 Saturation ABG Base Excess ABG Hemoglobin Oxyhemoglobin Sodium Potassium Chloride Carbon Dioxide BUN Creatinine Glucose POC Glucose 127 H 122 H 113 H Calcium Phosphorus AST ALT Ammonia Albumin Urine WBC (Auto) 03/31/22 03/31/22 03/31/22 03:56 03:56 10:59 WBC RBC 3.08 L Hgb 9.5 L Hct 30.1 L MCV 98 H MCH MCHC RDW 17.7 H Lymph % (Auto) [place] % (Auto) Lymph # (Auto) [place] # (Auto) Seg Neutrophils % Seg Neuts % (Manual) Lymphocytes % (Manual) Seg Neutrophils # Seg Neutrophils # Man Lymphocytes # (Manual) PT INR ABG pH ABG pO2 ABG HCO3 ABG O2 Saturation ABG Base Excess ABG Hemoglobin Oxyhemoglobin Sodium 135 L Potassium Chloride 97.4 L Carbon Dioxide 31 H BUN Creatinine 0.5 L Glucose 102 H POC Glucose 120 H Calcium Phosphorus AST ALT Ammonia Albumin Urine WBC (Auto) 04/01/22 04/01/22 04/01/22 00:09 06:08 11:03 WBC RBC Hgb Hct MCV MCH MCHC RDW Lymph % (Auto) [place] % (Auto) Lymph # (Auto) [place] # (Auto) Seg Neutrophils % Seg Neuts % (Manual) Lymphocytes % (Manual) Seg Neutrophils # Seg Neutrophils # Man Lymphocytes # (Manual) PT INR ABG pH ABG pO2 ABG HCO3 ABG O2 Saturation ABG Base Excess ABG Hemoglobin Oxyhemoglobin Sodium Potassium Chloride Carbon Dioxide BUN Creatinine Glucose POC Glucose 118 H 137 H 133 H Calcium Phosphorus AST ALT Ammonia Albumin Urine WBC (Auto) 04/01/22 04/02/22 04/02/22 17:36 05:49 13:25 WBC RBC Hgb Hct MCV MCH MCHC RDW Lymph % (Auto) [place] % (Auto) Lymph # (Auto) [place] # (Auto) Seg Neutrophils % Seg Neuts % (Manual) Lymphocytes % (Manual) Seg Neutrophils # Seg Neutrophils # Man Lymphocytes # (Manual) PT INR ABG pH ABG pO2 ABG HCO3 ABG O2 Saturation ABG Base Excess ABG Hemoglobin Oxyhemoglobin Sodium Potassium Chloride Carbon Dioxide BUN Creatinine Glucose POC Glucose 116 H 107 H 124 H Calcium Phosphorus AST ALT Ammonia Albumin Urine WBC (Auto) 04/02/22 04/03/22 04/03/22 17:06 04:04 04:04 WBC RBC Hgb Hct MCV 98 H MCH MCHC RDW 17.9 H Lymph % (Auto) [place] % (Auto) Lymph # (Auto) [place] # (Auto) Seg Neutrophils % Seg Neuts % (Manual) Lymphocytes % (Manual) Seg Neutrophils # Seg Neutrophils # Man Lymphocytes # (Manual) PT 15.2 H INR ABG pH ABG pO2 ABG HCO3 ABG O2 Saturation ABG Base Excess ABG Hemoglobin Oxyhemoglobin Sodium Potassium Chloride Carbon Dioxide BUN Creatinine Glucose POC Glucose 110 H Calcium Phosphorus AST ALT Ammonia Albumin Urine WBC (Auto) 04/03/22 04/03/22 04/03/22 04:04 11:40 17:21 WBC RBC Hgb Hct MCV MCH MCHC RDW Lymph % (Auto) [place] % (Auto) Lymph # (Auto) [place] # (Auto) Seg Neutrophils % Seg Neuts % (Manual) Lymphocytes % (Manual) Seg Neutrophils # Seg Neutrophils # Man Lymphocytes # (Manual) PT INR ABG pH ABG pO2 ABG HCO3 ABG O2 Saturation ABG Base Excess ABG Hemoglobin Oxyhemoglobin Sodium 136 L Potassium Chloride 97.1 L Carbon Dioxide BUN Creatinine 0.6 L Glucose POC Glucose 117 H 107 H Calcium Phosphorus 4.90 H AST ALT Ammonia Albumin Urine WBC (Auto) 04/03/22 04/04/22 04/04/22 23:50 11:39 17:51 WBC RBC Hgb Hct MCV MCH MCHC RDW Lymph % (Auto) [place] % (Auto) Lymph # (Auto) [place] # (Auto) Seg Neutrophils % Seg Neuts % (Manual) Lymphocytes % (Manual) Seg Neutrophils # Seg Neutrophils # Man Lymphocytes # (Manual) PT INR ABG pH ABG pO2 ABG HCO3 ABG O2 Saturation ABG Base Excess ABG Hemoglobin Oxyhemoglobin Sodium Potassium Chloride Carbon Dioxide BUN Creatinine Glucose POC Glucose 115 H 117 H 122 H Calcium Phosphorus AST ALT Ammonia Albumin Urine WBC (Auto) 04/04/22 04/05/22 23:16 05:48 WBC RBC Hgb Hct MCV MCH MCHC RDW Lymph % (Auto) [place] % (Auto) Lymph # (Auto) [place] # (Auto) Seg Neutrophils % Seg Neuts % (Manual) Lymphocytes % (Manual) Seg Neutrophils # Seg Neutrophils # Man Lymphocytes # (Manual) PT INR ABG pH ABG pO2 ABG HCO3 ABG O2 Saturation ABG Base Excess ABG Hemoglobin Oxyhemoglobin Sodium Potassium Chloride Carbon Dioxide BUN Creatinine Glucose POC Glucose 117 H 116 H Calcium Phosphorus AST ALT Ammonia Albumin Urine WBC (Auto)
[2022-04-05] MEDS: PRAVASTATIN 40 MG TAB FEEDTUBE SCH (23:03)
[2022-04-06] MEDS: ALBUTEROL 2.5 MG/3 ML NEBU IH SCH ×4 (02:39→20:05)
[2022-04-06] MEDS: LEVOTHYROXINE 25 MCG TAB FEEDTUBE SCH (05:34)
[2022-04-06] MEDS: HEPARIN 5,000 UNIT/1 ML VIAL SUB-Q SCH ×3 (07:15→23:18)
[2022-04-06] MEDS: MIDODRINE 5 MG TAB FEEDTUBE SCH ×3 (09:00→17:06)
[2022-04-06] MEDS: levETIRAcetam 500 MG/5 ML ORAL LIQD FEEDTUBE SCH ×2 (10:29→23:19)
[2022-04-06] MEDS: SENNOSIDES/DOCUSATE SODIUM 8.6/50 MG TAB FEEDTUBE SCH ×2 (10:30→23:19)
[2022-04-06] MEDS: FAMOTIDINE 20 MG TAB FEEDTUBE SCH ×2 (10:30→23:19)
--- NOTE | 2022-04-06 11:33 | Progress Note ---
<KEATON GOLD - Last Filed: 04/06/22 15:59> Assessment and Plan Assessment and plan: This is a 51-year-old male with HTN, seizure disorder, Down syndrome, HLD, partial blindness admitted with aspiration pneumonia, probable bronchogenic carcinoma, acute hypoxic respiratory failure and acute encephalopathy Hospital course to date: 02/19/2022. Consult pulmonary for further evaluation and possible bronchoscopy. I suspect patient has component of aspiration pneumonia as well. We will obtain a speech therapy evaluation for swallowing and start empiric antibiotics. Continue O2 supplementation to maintain sats greater than 92%. 02/20/2022. Pulmonary feels that the abnormality seen on CT scan is highly unlikely for a mass given negative chest x-ray 1 month ago and no risk factors. Etiology is likely secondary to aspiration from possibly a foreign body most likely food with atelectasis of the right lower lobe. Bronchoscopy is needed in the case to evaluate to see if lung mass is there vs foreign body, but at this time not able to do because no identifiable person that is able to give consent. Continue aspiration precautions and continue speech therapy evaluation for swallowing. Keep n.p.o. for now 02/21/2022. Patient remains NPO. Consider DHT placement. Follow-up with speech therapy evaluation. Pulmonology to consider bronchoscopy if able to obtain consent. Continue IV antibiotics for aspiration pneumonia 02/22/2022. Patient remains NPO. Consider DHT placement. Follow-up with speech therapy evaluation. Pulmonology to consider bronchoscopy if able to obtain consent. Continue IV antibiotics for aspiration pneumonia 02/23/2022. DHT placed yesterday. TF initiated for nutritional support. Patient currently with strict NPO. Aspiration precautions. Pulmonology to consider bronchoscopy if able to obtain consent. Continue IV antibiotics for aspiration pneumonia 02/24: Patient was transferred to the ICU for further monitoring. This morning patient remained on high flow nasal cannula on 40 L/100% and despite repeated nasotracheal suctioning patient SPO2 remained in the 80s. Patient was placed on nonrebreather and SPO2 increased to upper 80s. Patient was subsequently intubated by anesthesia. Started on sedation. 02/25: Patient remains sedated on fentanyl, potassium and magnesium repleted. IV fluids and amlodipine discontinued. Possible bronchoscopy tomorrow. 02/26: Patient had a bronchoscopy today which showed mucus and no endobronchial lesions or masses. FiO2 was increased to 100 during and postprocedure weaning as tolerated. Repeat CXR is much improved after bronc. Given 1 L LR bolus due to hypotension. No acute events reported overnight. 02/27: Decreased PEEP, will repeat CT of chest. no acute changes overnight. 02/28: Patient was extubated today however had to be be intubated shortly after. Patient ETT looked mispositioned on x-ray and Dr. Alonzo did do a bedside bronc. Patient was briefly hypotensive and on Levophed postintubation however Levophed was quickly titrated off and patient did not require central line. No acute events reported overnight. Will obtain CT neck d/t difficulty intubating. Ethi committee consulted. 03/04: Overnight patient was hypotensive and started on IVF. Patient started on steroids as no air leak noted and hypotension and given 2 L LR 03/05: Overnight patient received bolus per RN report, no orders seen. Continue supportive care 03/03: SB on the monitor, HR as low as 37, VSS. Will continue to monitor for now. Awaiting on desicion from [facility] for possible trach and PEG. Continue daily air leak per [facility] 03/04: MAIDA overnight. Remains stable on the vent. Awaiting on desicion from [facility] for possible trach and PEG. Continue current supportive measures 03/05: MAIDA overnight. Awaiting on desicion from [facility] for possible trach and PEG. Midodrine held yesterday, HR improved. Continue current supportive measures. Daily PSV trial as tolerated per [facility] 03/06: Remains stable on the vent. Continue current supportive measures, daily PSV trial per [facility]. Awaiting on desicion for possible trach and PEG. 03/07: MAIDA overnight, remains stable. Continue daily PSV trial as tolerated. Awaiting on desicion for possible trach and PEG. 03/08: Patient failed PSV trial this am due to tachycardia and increase RR. Continue supportive measures and daily PSV trial as tolerated. Possible discussion with [facility] and [facility] on Thursday in regards to medical necessity, may need to consider two physician consent if no one is able to claim responsibility for this patient. 03/09: MAIDA overnight. Continue current supportive measures and daily PSV trail as tolerated. Awaiting on desicion for possible trach and PEG, discussion with Ethics possibly tomorrow per [facility]. 03/10: no acute events overnight, PSV today. replete potassium. 03/11: No acute events reported overnight, patient failed PSV yesterday and will repeat today. Hospital to start guardianship process. 03/12: No acute events overnight. PSV today 03/13: Patient given 500ml normal saline and started on midodrine for h ypotension. No acute events reported overnight. Failed pressure support again this morning. 03/14: No acute events reported overnight, patient blood pressure seems better therefore midodrine discontinued. RT placed on CPAP need lasted for couple hours. Will remove summers 03/15: Midodrine was restarted yesterday evening for hypotension, Summers catheter not removed due to sacral ulcer and history of retention. Unable to crush Flomax and patient will not tolerate doxazosin given hypotension. Given LR bolus this morning. If blood pressure continues to be borderline after bolus, we will adjust management as needed. CPAP as tolerated 03/16: No acute events reported overnight, patient placed on CPAP trial this morning which he failed. 03/17: RT attempted PSV which he failed again today. No acute events reported overnight. 03/18: Awaiting ethic committee's decision on Trach/PEG. Patient tolerated PSV trial for over 3 hrs today, continue daily PSV trial as tolerated. 03/19: MAIDA overnight. Continue current supportive measures. Daily PSV trial as tolerated. Awaiting on desicion for possible trach and PEG. 03/20: MAIDA overnight. Daily PSV trial as tolerated. Awaiting decision on guardian ship for trach and PEG. 03/21: Remains stable, condition unchanged. Continue supportive measures and daily PSV trial as tolerated. 03/22: MAIDA overnight. Continue current supportive measures. Daily PSV trial as tolerated 03/23: MAIDA overnight, continue supportive measures and daily PSV trial as tolerated. 03/24: Condition unchanged. Still waiting on Ethics' decision for possible trach/Peg. Continue supportive measures and daily PSV trial as tolerated. 03/25: PSV attempt today, does open eyes to stimuli, no acute events overnight. 03/26: Yesterday evening Summers catheter was removed as he was due to be changed, condom cath placed. Overnight patient had good urine output and per RN repeated bladder scans showed less than 200 mL of urine. We will continue to monitor urine output. RT to attempt PSV 03/27: Patient has leukocytosis today and UA has pyuria with moderate LE therefore he will be started on antibiotics. 03/28: Leukocytosis improving. No acute events reported overnight. 03/29: No acute events overnight. Continue supportive care. 03/30: no acute events overnight, PSV again. 03/31: Condition unchanged, remains on low vent setting. Possible Ethics meeting today and tomorrow for possible guardianship. Will consult General Surgery for possible trach and Peg once guardianship decision has been made. Continue supportive measures and daily PSV trial as tolerated 04/01: Remains stable on the vent. Court hearing today, awaiting decision on appointed guardian by the [facility]. Continue current supportive measures and daily PSV trial as tolerated 04/02: MAIDA overnight. Stable on the vent. Awaiting on desicion on appointed guardian. Continue current supportive measures and daily PSV trial as tolerated. 04/03: Awaiting on desicion on appointed guardian. Continue current supportive measures and daily PSV trial as tolerated 04/04: Guardian appointed by the [facility]. Plan for possible trach and Peg by early next week. Continue current supportive measures and daily PSV trial as tolerated 04/05: Continue current supportive measures and daily PSV trial as tolerated. Plan for possible trach and Peg next week. 04/06: MAIDA overnight. Possible trach and Peg next week. Continue current supportive measures and daily PSV trial as tolerated. Neuro: Acute encephalopathy, h/o seizure disorder, Down syndrome, partial blindness -Intubated and off sedation -Reorientation as needed -Maintain sleep-wake cycle -aspiration/seizure precautions -As needed analgesia -CT head showed no acute abnormality -Continue Keppra Cardiac: Hypotension, h/o HTN, HLD -Cardiology consulted, appreciate recommendations -Blood pressure monitoring per protocol -d/c amlodipine -On PO Midodrine for hypotension Respiratory: Acute hypoxic respiratory failure, r/o bronchogenic carcinoma -[facility] consulted, appreciate recommendations -Intubated on 02/24 with a 8.0 at 23 at the lips but extubated 02/28 -reintubated 02/28 with 8.0 OETT -Vent settings: AC rate 14, TV 360, PEEP 6, FO2 30% -See RT notes for titration -VAP bundle -SPO2 monitoring -02/18 CTA chest showed no evidence of pulmonary embolism, suspected bronchogenic carcinoma with associated obstruction of the right lower lobe proximal bronchus segment, 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 adenopathy and suspected to left lower lobe metastatic nodule -02/26 Bronch->mucous, no lesion noted -02/27 CT chest showed right mainstem bronchus patent with small amount of interval bronchial fluid which may be mucus (this may account for the appearance of the prior CTA chest fluid-filled airway rather than entering bronchial lesion), previously seen complete left lower lobe since related to bronchial occlusion has significantly improved, there is persistent compressive atele ctasis in the right lower lung secondary to the pleural effusion, bilateral pleural effusions, right lung pneumonia -CT neck showed no acute changes - IV Steroids stopped GI: Moderate protein calorie malnutrition -PPI -NTR consulted for tube feedings -BR: Senokot S : Hypernatremia (resolved) -FWF q4 hr -Monitor intake and output -Renally dose medications -Avoid nephrotoxic medications -Trend BMP ID: UTI, Aspiration PNA (resolved), sacral wound (POA) -UA with pyuria, mod LE with leukocytosis -WOCN consulted -Dressing changes per nursing -S/p Rocephin for 5 days (02/19-02/24) -Current abx therapy: rocephin for 3 days -Monitor WBC and temperature curve Endo: NAD -Avoid hypoglycemia -Accu-Cheks every 6 -Avoid hypoglycemia Heme: NAD -Trend CBC -Transfuse hemoglobin less than 7 -SCDs to BLE while in bed The high probability of a clinically significant, sudden or life threatening deterioration of the [resp] system(s) required my full and direct attention, intervention and personal management. The aggregate critical care time was [60] minutes. This time is in addition to time spent performing reported procedures but includes the following: [x] Data Review and interpretation [x] Patient assessment and monitoring of vital signs [x] Documentation [x] Medication orders and management Disposition Plan: ICU Total Time Spent with Patient (Minutes): 60 History Interval history: Patient seen and examined at the bedside. Remains stable on low vent setting. SR on the monitor this am, VSS. MAIDA overnight Hospitalist Physical - Physical exam Narrative exam: General appearance: Present: no acute distress, well-nourished, obese - EENT Eyes: Present: PERRL - Neck Neck: Present: normal ROM - Respiratory Respiratory effort: normal Respiratory: bilateral: rhonchi - Cardiovascular Rhythm: regular Heart Sounds: Present: S1 & S2 - Extremities Extremities: no ischemia, pulses intact, pulses symmetrical Extremity abnormal: edema - Peripheral Assessment Generalized Edema Type: Non-pitting Edema Degree: 1+ Capillary Refill: < 3 seconds Skin Temperature: Warm Peripheral Pulses: within normal limits - Abdominal General gastrointestinal: soft, non-distended, normal bowel sounds - Integumentary Integumentary: Present: warm, dry - Psychiatric Psychiatric: other (Intubated, unresponsive. Not on any sedations) - Neurologic Neurologic: moves all extremities, other (Intubated, unresponsive. Not on any sedations) - Allied Health Allied health notes reviewed: nursing, case management - Constitutional Vitals: Temp Pulse Resp BP Pulse Ox 97.7 F 89 19 144/90 94 04/06/22 07:13 04/06/22 07:48 04/06/22 07:47 04/06/22 07:48 04/06/22 07:48 HEART Score - HEART Score Troponin: Troponin T < 0.010 ng/mL (0.00-0.029) 02/18/22 21:02 Results - Labs CBC & Chem 7: 04/03/22 04:04 04/03/22 04:04 Labs: Laboratory Last Values WBC 6.7 K/mm3 (4.5-11.0) 04/03/22 04:04 RBC 3.85 M/mm3 (3.65-5.03) 04/03/22 04:04 Hgb 11.9 gm/dl (11.8-15.2) 04/03/22 04:04 Hct 37.6 % (35.5-45.6) 04/03/22 04:04 MCV 98 fl (84-94) H 04/03/22 04:04 MCH 31 pg (28-32) 04/03/22 04:04 MCHC 32 % (32-34) 04/03/22 04:04 RDW 17.9 % (13.2-15.2) H 04/03/22 04:04 Plt Count 378 K/mm3 (140-440) 04/03/22 04:04 Lymph % (Auto) 7.5 % (13.4-35.0) L 03/28/22 04:06 Hawkins % (Auto) 10.5 % (0.0-7.3) H 03/28/22 04:06 Eos % (Auto) 0.9 % (0.0-4.3) 03/28/22 04:06 Baso % (Auto) 0.4 % (0.0-1.8) 03/28/22 04:06 Lymph # (Auto) 1.1 K/mm3 (1.2-5.4) L 03/28/22 04:06 Hawkins # (Auto) 1.5 K/mm3 (0.0-0.8) H 03/28/22 04:06 Eos # (Auto) 0.1 K/mm3 (0.0-0.4) 03/28/22 04:06 Baso # (Auto) 0.1 K/mm3 (0.0-0.1) 03/28/22 04:06 Add Manual Diff Complete 03/03/22 03:54 Total Counted 100 03/03/22 03:54 Seg Neutrophils % 80.7 % (40.0-70.0) H 03/28/22 04:06 Seg Neuts % (Manual) 95.0 % (40.0-70.0) H 03/03/22 03:54 Band Neutrophils % 0 % 03/03/22 03:54 Lymphocytes % (Manual) 3.0 % (13.4-35.0) L 03/03/22 03:54 Reactive Lymphs % (Man) 0 % 03/03/22 03:54 Monocytes % (Manual) 2.0 % (0.0-7.3) 03/03/22 03:54 Eosinophils % (Manual) 0 % (0.0-4.3) 03/03/22 03:54 Basophils % (Manual) 0 % (0.0-1.8) 03/03/22 03:54 Metamyelocytes % 0 % 03/03/22 03:54 Myelocytes % 0 % 03/03/22 03:54 Promyelocytes % 0 % 03/03/22 03:54 Blast Cells % 0 % 03/03/22 03:54 Nucleated RBC % Not Reportable 03/03/22 03:54 Seg Neutrophils # 11.4 K/mm3 (1.8-7.7) H 03/28/22 04:06 Seg Neutrophils # Man 18.5 K/mm3 (1.8-7.7) H 03/03/22 03:54 Band Neutrophils # 0.0 K/mm3 03/03/22 03:54 Lymphocytes # (Manual) 0.6 K/mm3 (1.2-5.4) L 03/03/22 03:54 Abs React Lymphs (Man) 0.0 K/mm3 03/03/22 03:54 Monocytes # (Manual) 0.4 K/mm3 (0.0-0.8) 03/03/22 03:54 Eosinophils # (Manual) 0.0 K/mm3 (0.0-0.4) 03/03/22 03:54 Basophils # (Manual) 0.0 K/mm3 (0.0-0.1) 03/03/22 03:54 Metamyelocytes # 0.0 K/mm3 03/03/22 03:54 Myelocytes # 0.0 K/mm3 03/03/22 03:54 Promyelocytes # 0.0 K/mm3 03/03/22 03:54 Blast Cells # 0.0 K/mm3 03/03/22 03:54 WBC Morphology Not Reportable 03/03/22 03:54 Hypersegmented Neuts Not Reportable 03/03/22 03:54 Hyposegmented Neuts Not Reportable 03/03/22 03:54 Hypogranular Neuts Not Reportable 03/03/22 03:54 Smudge Cells Not Reportable 03/03/22 03:54 Toxic Granulation Not Reportable 03/03/22 03:54 Toxic Vacuolation Not Reportable 03/03/22 03:54 Dohle Bodies Not Reportable 03/03/22 03:54 Pelger-Huet Anomaly Not Reportable 03/03/22 03:54 Lakshmi Rods Not Reportable 03/03/22 03:54 Platelet Estimate Consistent w auto 03/03/22 03:54 Clumped Platelets Not Reportable 03/03/22 03:54 Plt Clumps, EDTA Not Reportable 03/03/22 03:54 Large Platelets Not Reportable 03/03/22 03:54 Giant Platelets Not Reportable 03/03/22 03:54 Platelet Satelliting Not Reportable 03/03/22 03:54 Plt Morphology Comment Not Reportable 03/03/22 03:54 RBC Morphology Not Reportable 03/03/22 03:54 Dimorphic RBCs Not Reportable 03/03/22 03:54 Polychromasia Not Reportable 03/03/22 03:54 Hypochromasia Not Reportable 03/03/22 03:54 Poikilocytosis Not Reportable 03/03/22 03:54 Anisocytosis 1+ 03/03/22 03:54 Microcytosis Not Reportable 03/03/22 03:54 Macrocytosis Not Reportable 03/03/22 03:54 Spherocytes Not Reportable 03/03/22 03:54 Pappenheimer Bodies Not Reportable 03/03/22 03:54 Sickle Cells Not Reportable 03/03/22 03:54 Target Cells Not Reportable 03/03/22 03:54 Tear Drop Cells Not Reportable 03/03/22 03:54 Ovalocytes Not Reportable 03/03/22 03:54 Helmet Cells Not Reportable 03/03/22 03:54 Orellana-Carnot-Moon Bodies Not Reportable 03/03/22 03:54 Orlando Rings Not Reportable 03/03/22 03:54 Shelby Cells Not Reportable 03/03/22 03:54 Bite Cells Not Reportable 03/03/22 03:54 Crenated Cell Not Reportable 03/03/22 03:54 Elliptocytes Not Reportable 03/03/22 03:54 Acanthocytes (Spur) Not Reportable 03/03/22 03:54 Rouleaux Not Reportable 03/03/22 03:54 Hemoglobin C Crystals Not Reportable 03/03/22 03:54 Schistocytes Not Reportable 03/03/22 03:54 Malaria parasites Not Reportable 03/03/22 03:54 Cash Bodies Not Reportable 03/03/22 03:54 Hem Pathologist Commnt No 03/03/22 03:54 PT 15.2 Sec. (12.2-14.9) H 04/03/22 04:04 INR 1.05 (0.87-1.13) 04/03/22 04:04 APTT 33.4 Sec. (24.2-36.6) 04/06/22 08:47 ABG pH 7.392 pH Units (7.350-7.450) 03/22/22 14:25 ABG pCO2 54.4 mm Hg 03/22/22 14:25 ABG pO2 150.5 mm Hg (80.0-90.0) H 03/22/22 14:25 ABG HCO3 32.4 mmol/L (20.0-26.0) H 03/22/22 14:25 ABG O2 Saturation 98.8 % (95.0-99.0) 03/22/22 14:25 ABG O2 Content 15.8 (0.0-44) 03/22/22 14:25 ABG Base Excess 6.2 mmol/L (-2.0-3.0) H 03/22/22 14:25 ABG Hemoglobin 11.4 gm/dl (14.0-18.0) L 03/22/22 14:25 ABG Carboxyhemoglobin 1.6 % (0.0-5.0) 03/22/22 14:25 ABG Methemoglobin 0.6 % (0.0-1.5) 03/22/22 14:25 Oxyhemoglobin 96.6 % (95.0-99.0) 03/22/22 14:25 FiO2 30 % 03/22/22 14:25 Sodium 136 mmol/L (137-145) L 04/03/22 04:04 Potassium 5.0 mmol/L (3.6-5.0) 04/03/22 04:04 Chloride 97.1 mmol/L (98-107) L 04/03/22 04:04 Carbon Dioxide 30 mmol/L (22-30) 04/03/22 04:04 Anion Gap 14 mmol/L 04/03/22 04:04 BUN 20 mg/dL (9-20) 04/03/22 04:04 Creatinine 0.6 mg/dL (0.8-1.3) L 04/03/22 04:04 Estimated GFR > 60 ml/min 04/03/22 04:04 BUN/Creatinine Ratio 33 % 04/03/22 04:04 Glucose 91 mg/dL (75-100) 04/03/22 04:04 POC Glucose 99 mg/dL (70-105) 04/06/22 05:46 Lactic Acid 1.20 mmol/L (0.7-2.0) 02/18/22 21:02 Calcium 9.1 mg/dL (8.4-10.2) 04/03/22 04:04 Phosphorus 4.90 mg/dL (2.5-4.5) H 04/03/22 04:04 Magnesium 2.00 mg/dL (1.7-2.3) 04/03/22 04:04 Total Bilirubin 0.30 mg/dL (0.1-1.2) 03/10/22 03:57 AST 17 units/L (5-40) 03/10/22 03:57 ALT 18 units/L (7-56) 03/10/22 03:57 Alkaline Phosphatase 89 units/L (35-129) 03/10/22 03:57 Ammonia 14.0 umol/L (25-60) L 02/18/22 23:22 Troponin T < 0.010 ng/mL (0.00-0.029) 02/18/22 21:02 Total Protein 6.6 g/dL (6.3-8.2) 03/10/22 03:57 Albumin 1.9 g/dL (3.9-5) L 03/10/22 03:57 Albumin/Globulin Ratio 0.4 % 03/10/22 03:57 Urine Color Yellow (Yellow) 03/27/22 08:36 Urine Turbidity Cloudy (Clear) 03/27/22 08:36 Urine pH 7.0 (5.0-7.0) 02/18/22 Unknown Ur Specific [place] 1.015 (1.003-1.030) 02/18/22 Unknown Specific [place] (Man) 1.020 (1.003-1.030) 03/27/22 08:36 Urine Protein <15 mg/dl mg/dL (Negative) 02/18/22 Unknown Ur Protein (Man) 1+ mg/dL (Negative) 03/27/22 08:36 Urine Glucose (UA) Negative mg/dL (Negative) 02/18/22 Unknown Urine Ketones Negative mg/dL (Negative) 02/18/22 Unknown Ur Ketones (Man) Negative (Negative) 03/27/22 08:36 Urine Blood Trace (Negative) 02/18/22 Unknown Urine Nitrite Negative (Negative) 02/18/22 Unknown Ur Nitrite (Man) Negative (Negative) 03/27/22 08:36 Ur Reducing Substances Not Reportable 03/27/22 08:36 Urine Bilirubin Negative (Negative) 02/18/22 Unknown Urine Bilirubin (Man) Negative (Negative) 03/27/22 08:36 Urine Ictotest Not Reportable 03/27/22 08:36 Urine Urobilinogen < 2.0 mg/dL (<2.0) 02/18/22 Unknown Ur Leukocyte Esterase Negative (Negative) 02/18/22 Unknown Leukocyte Esterase (Man) Moderate (Negative) 03/27/22 08:36 Urine WBC (Auto) > 182.0 /HPF (0.0-6.0) H 03/27/22 08:36 Urine RBC (Auto) 9.0 /HPF (0.0-6.0) 03/27/22 08:36 U Epithel Cells (Auto) < 1.0 /HPF (0-13.0) 03/27/22 08:36 Urine RBC (Manual) 1+ (Negative) 03/27/22 08:36 Urine Mucus Few /HPF 03/27/22 08:36 Urine Yeast (Budding) 2+ /HPF 03/27/22 08:36 Urine Opiates Screen Negative 02/18/22 Unknown Urine Methadone Screen Negative 02/18/22 Unknown Ur Barbiturates Screen Negative 02/18/22 Unknown Ur Phencyclidine Scrn Negative 02/18/22 Unknown Ur Amphetamines Screen Negative 02/18/22 Unknown U Benzodiazepines Scrn Negative 02/18/22 Unknown Urine Cocaine Screen Negative 02/18/22 Unknown U Marijuana (THC) Screen Negative 02/18/22 Unknown Drugs of Abuse Note Disclamer 02/18/22 Unknown Plasma/Serum Alcohol < 0.01 % (0-0.07) 02/18/22 21:02 Summers/IV: Voiding Method Indwelling Catheter Active Medications - Current Medications Current Medications: Generic Name Dose Route Start Last Admin Trade Name Freq PRN Reason Stop Dose Admin Acetaminophen 650 mg 03/03/22 09:00 Acetaminophen 325 Mg/10.15 Ml Oral Liqd Unit Dose FEEDTUBE Q4H PRN Pain, Mild (1-3); TEMP > 100.4 Albuterol 2.5 mg 03/12/22 20:00 04/06/22 07:47 Albuterol 2.5 Mg/3 Ml Nebu IH 2.5 mg Q6HRT LAZARUS Administration Famotidine 20 mg 02/25/22 10:00 04/06/22 10:30 Famotidine 20 Mg Tab FEEDTUBE 20 mg BID LAZARUS Administration Heparin Sodium (Porcine) 5,000 unit 02/19/22 06:00 04/06/22 07:15 Heparin 5,000 Unit/1 Ml Vial SUB-Q 5,000 unit Q8HR LAZARUS Administration Levetiracetam 500 mg 02/25/22 22:00 04/06/22 10:29 Levetiracetam 500 Mg/5 Ml Oral Liqd FEEDTUBE 500 mg BID LAZARUS Administration Levothyroxine Sodium 25 mcg 02/26/22 06:00 04/06/22 05:34 Levothyroxine 25 Mcg Tab FEEDTUBE 25 mcg QAM@0600 LAZARUS Administration Magnesium Hydroxide 30 ml 02/19/22 02:02 04/03/22 04:14 Magnesium Hydroxide (Mom) Oral Liqd Udc PO 30 ml Q4H PRN Administration Constipation Midodrine 5 mg 04/03/22 12:00 04/06/22 09:00 Midodrine 5 Mg Tab FEEDTUBE 5 mg TID@0800,1200,1600 LAZARUS Administration Multi-Ingred Cream/Lotion/Oil/Oint 1 applic 02/24/22 15:05 Mineral Oil/Petrolatum, White Ophth Oint 3.5 Gm OU Q4HR PRN Dry Eye(s) Ondansetron HCl 4 mg 02/19/22 02:02 Ondansetron 4 Mg/2 Ml Inj IV Q8H PRN Nausea And Vomiting Pravastatin Sodium 40 mg 02/25/22 22:00 04/05/22 23:03 Pravastatin 40 Mg Tab FEEDTUBE 40 mg QHS LAZARUS Administration Senna/Docusate Sodium 1 tab 02/24/22 22:00 04/06/22 10:30 Sennosides/Docusate Sodium 8.6/50 Mg Tab FEEDTUBE 1 tab BID LAZARUS Administration Sodium Chloride 10 ml 02/19/22 10:00 04/06/22 10:31 Sodium Chloride 0.9% 10 Ml Flush Syringe IV 10 ml BID LAZARUS Administration Sodium Chloride 10 ml 02/19/22 02:02 03/03/22 14:21 Sodium Chloride 0.9% 10 Ml Flush Syringe IV 10 ml PRN PRN Administration LINE FLUSH Nutrition/Malnutrition Assess - Dietary Evaluation Nutrition/Malnutrition Findings: Nutrition Notes Start: 02/19/22 14:29 Freq: Status: Active Protocol: Document 04/04/22 13:07 IVAN (Rec: 04/04/22 13:10 IVAN [id number]) Nutrition Notes Initial or Follow up Brief Note Current Diet TF - Promote at 65ml/hr Subjective/Other Information Observed Promote infusing at goal rate of 65ml/hr. Pt tolerating TF at goal rate. BM documented on 04/01 and 04/03 . Pt remains on vent support. Percent of energy/protein needs met: 98% energy 100% pro Nutrition Intervention Follow-Up By: 04/11/22 Additional Comments F/U: stable TF, vent status, trach/PEG placement, BM <JOAQUIN ROBIN - Last Filed: 04/07/22 07:15> Assessment and Plan Assessment and plan: I saw and evaluated the patient. I agree with the findings and the plan of care as documented in the Nurse Practitioner's~note, with the following corrections and additions. Hospitalist Physical - Constitutional Vitals: Temp Pulse Resp BP Pulse Ox 99.3 F 91 H 15 129/75 92 04/07/22 07:15 04/07/22 07:00 04/07/22 07:00 04/07/22 07:00 04/07/22 07:00 HEART Score - HEART Score Troponin: Troponin T < 0.010 ng/mL (0.00-0.029) 02/18/22 21:02 Results - Labs CBC & Chem 7: 04/07/22 03:55 04/07/22 03:55 Labs: Laboratory Last Values WBC 11.2 K/mm3 (4.5-11.0) H 04/07/22 03:55 RBC 3.55 M/mm3 (3.65-5.03) L 04/07/22 03:55 Hgb 10.8 gm/dl (11.8-15.2) L 04/07/22 03:55 Hct 34.2 % (35.5-45.6) L 04/07/22 03:55 MCV 97 fl (84-94) H 04/07/22 03:55 MCH 30 pg (28-32) 04/07/22 03:55 MCHC 31 % (32-34) L 04/07/22 03:55 RDW 18.6 % (13.2-15.2) H 04/07/22 03:55 Plt Count 352 K/mm3 (140-440) 04/07/22 03:55 Lymph % (Auto) 7.5 % (13.4-35.0) L 03/28/22 04:06 Hawkins % (Auto) 10.5 % (0.0-7.3) H 03/28/22 04:06 Eos % (Auto) 0.9 % (0.0-4.3) 03/28/22 04:06 Baso % (Auto) 0.4 % (0.0-1.8) 03/28/22 04:06 Lymph # (Auto) 1.1 K/mm3 (1.2-5.4) L 03/28/22 04:06 Hawkins # (Auto) 1.5 K/mm3 (0.0-0.8) H 03/28/22 04:06 Eos # (Auto) 0.1 K/mm3 (0.0-0.4) 03/28/22 04:06 Baso # (Auto) 0.1 K/mm3 (0.0-0.1) 03/28/22 04:06 Add Manual Diff Complete 03/03/22 03:54 Total Counted 100 03/03/22 03:54 Seg Neutrophils % 80.7 % (40.0-70.0) H 03/28/22 04:06 Seg Neuts % (Manual) 95.0 % (40.0-70.0) H 03/03/22 03:54 Band Neutrophils % 0 % 03/03/22 03:54 Lymphocytes % (Manual) 3.0 % (13.4-35.0) L 03/03/22 03:54 Reactive Lymphs % (Man) 0 % 03/03/22 03:54 Monocytes % (Manual) 2.0 % (0.0-7.3) 03/03/22 03:54 Eosinophils % (Manual) 0 % (0.0-4.3) 03/03/22 03:54 Basophils % (Manual) 0 % (0.0-1.8) 03/03/22 03:54 Metamyelocytes % 0 % 03/03/22 03:54 Myelocytes % 0 % 03/03/22 03:54 Promyelocytes % 0 % 03/03/22 03:54 Blast Cells % 0 % 03/03/22 03:54 Nucleated RBC % Not Reportable 03/03/22 03:54 Seg Neutrophils # 11.4 K/mm3 (1.8-7.7) H 03/28/22 04:06 Seg Neutrophils # Man 18.5 K/mm3 (1.8-7.7) H 03/03/22 03:54 Band Neutrophils # 0.0 K/mm3 03/03/22 03:54 Lymphocytes # (Manual) 0.6 K/mm3 (1.2-5.4) L 03/03/22 03:54 Abs React Lymphs (Man) 0.0 K/mm3 03/03/22 03:54 Monocytes # (Manual) 0.4 K/mm3 (0.0-0.8) 03/03/22 03:54 Eosinophils # (Manual) 0.0 K/mm3 (0.0-0.4) 03/03/22 03:54 Basophils # (Manual) 0.0 K/mm3 (0.0-0.1) 03/03/22 03:54 Metamyelocytes # 0.0 K/mm3 03/03/22 03:54 Myelocytes # 0.0 K/mm3 03/03/22 03:54 Promyelocytes # 0.0 K/mm3 03/03/22 03:54 Blast Cells # 0.0 K/mm3 03/03/22 03:54 WBC Morphology Not Reportable 03/03/22 03:54 Hypersegmented Neuts Not Reportable 03/03/22 03:54 Hyposegmented Neuts Not Reportable 03/03/22 03:54 Hypogranular Neuts Not Reportable 03/03/22 03:54 Smudge Cells Not Reportable 03/03/22 03:54 Toxic Granulation Not Reportable 03/03/22 03:54 Toxic Vacuolation Not Reportable 03/03/22 03:54 Dohle Bodies Not Reportable 03/03/22 03:54 Pelger-Huet Anomaly Not Reportable 03/03/22 03:54 Lakshmi Rods Not Reportable 03/03/22 03:54 Platelet Estimate Consistent w auto 03/03/22 03:54 Clumped Platelets Not Reportable 03/03/22 03:54 Plt Clumps, EDTA Not Reportable 03/03/22 03:54 Large Platelets Not Reportable 03/03/22 03:54 Giant Platelets Not Reportable 03/03/22 03:54 Platelet Satelliting Not Reportable 03/03/22 03:54 Plt Morphology Comment Not Reportable 03/03/22 03:54 RBC Morphology Not Reportable 03/03/22 03:54 Dimorphic RBCs Not Reportable 03/03/22 03:54 Polychromasia Not Reportable 03/03/22 03:54 Hypochromasia Not Reportable 03/03/22 03:54 Poikilocytosis Not Reportable 03/03/22 03:54 Anisocytosis 1+ 03/03/22 03:54 Microcytosis Not Reportable 03/03/22 03:54 Macrocytosis Not Reportable 03/03/22 03:54 Spherocytes Not Reportable 03/03/22 03:54 Pappenheimer Bodies Not Reportable 03/03/22 03:54 Sickle Cells Not Reportable 03/03/22 03:54 Target Cells Not Reportable 03/03/22 03:54 Tear Drop Cells Not Reportable 03/03/22 03:54 Ovalocytes Not Reportable 03/03/22 03:54 Helmet Cells Not Reportable 03/03/22 03:54 Orellana-Carnot-Moon Bodies Not Reportable 03/03/22 03:54 [place] Rings Not Reportable 03/03/22 03:54 [place] Cells Not Reportable 03/03/22 03:54 Bite Cells Not Reportable 03/03/22 03:54 Crenated Cell Not Reportable 03/03/22 03:54 Elliptocytes Not Reportable 03/03/22 03:54 Acanthocytes (Spur) Not Reportable 03/03/22 03:54 Rouleaux Not Reportable 03/03/22 03:54 Hemoglobin C Crystals Not Reportable 03/03/22 03:54 Schistocytes Not Reportable 03/03/22 03:54 Malaria parasites Not Reportable 03/03/22 03:54 Cash Bodies Not Reportable 03/03/22 03:54 Hem Pathologist Commnt No 03/03/22 03:54 PT 15.0 Sec. (12.2-14.9) H 04/07/22 03:55 INR 1.06 (0.87-1.13) 04/07/22 03:55 APTT 33.4 Sec. (24.2-36.6) 04/06/22 08:47 ABG pH 7.392 pH Units (7.350-7.450) 03/22/22 14:25 ABG pCO2 54.4 mm Hg 03/22/22 14:25 ABG pO2 150.5 mm Hg (80.0-90.0) H 03/22/22 14:25 ABG HCO3 32.4 mmol/L (20.0-26.0) H 03/22/22 14:25 ABG O2 Saturation 98.8 % (95.0-99.0) 03/22/22 14:25 ABG O2 Content 15.8 (0.0-44) 03/22/22 14:25 ABG Base Excess 6.2 mmol/L (-2.0-3.0) H 03/22/22 14:25 ABG Hemoglobin 11.4 gm/dl (14.0-18.0) L 03/22/22 14:25 ABG Carboxyhemoglobin 1.6 % (0.0-5.0) 03/22/22 14:25 ABG Methemoglobin 0.6 % (0.0-1.5) 03/22/22 14:25 Oxyhemoglobin 96.6 % (95.0-99.0) 03/22/22 14:25 FiO2 30 % 03/22/22 14:25 Sodium 137 mmol/L (137-145) 04/07/22 03:55 Potassium 5.0 mmol/L (3.6-5.0) 04/07/22 03:55 Chloride 97.7 mmol/L (98-107) L 04/07/22 03:55 Carbon Dioxide 31 mmol/L (22-30) H 04/07/22 03:55 Anion Gap 13 mmol/L 04/07/22 03:55 BUN 21 mg/dL (9-20) H 04/07/22 03:55 Creatinine 0.6 mg/dL (0.8-1.3) L 04/07/22 03:55 Estimated GFR > 60 ml/min 04/07/22 03:55 BUN/Creatinine Ratio 35 % 04/07/22 03:55 Glucose 94 mg/dL (75-100) 04/07/22 03:55 POC Glucose 96 mg/dL (70-105) 04/07/22 05:26 Lactic Acid 1.20 mmol/L (0.7-2.0) 02/18/22 21:02 Calcium 8.9 mg/dL (8.4-10.2) 04/07/22 03:55 Phosphorus 4.00 mg/dL (2.5-4.5) 04/07/22 03:55 Magnesium 1.90 mg/dL (1.7-2.3) 04/07/22 03:55 Total Bilirubin 0.30 mg/dL (0.1-1.2) 03/10/22 03:57 AST 17 units/L (5-40) 03/10/22 03:57 ALT 18 units/L (7-56) 03/10/22 03:57 Alkaline Phosphatase 89 units/L (35-129) 03/10/22 03:57 Ammonia 14.0 umol/L (25-60) L 02/18/22 23:22 Troponin T < 0.010 ng/mL (0.00-0.029) 02/18/22 21:02 Total Protein 6.6 g/dL (6.3-8.2) 03/10/22 03:57 Albumin 1.9 g/dL (3.9-5) L 03/10/22 03:57 Albumin/Globulin Ratio 0.4 % 03/10/22 03:57 Urine Color Yellow (Yellow) 03/27/22 08:36 Urine Turbidity Cloudy (Clear) 03/27/22 08:36 Urine pH 7.0 (5.0-7.0) 02/18/22 Unknown Ur Specific [place] 1.015 (1.003-1.030) 02/18/22 Unknown Specific [place] (Man) 1.020 (1.003-1.030) 03/27/22 08:36 Urine Protein <15 mg/dl mg/dL (Negative) 02/18/22 Unknown Ur Protein (Man) 1+ mg/dL (Negative) 03/27/22 08:36 Urine Glucose (UA) Negative mg/dL (Negative) 02/18/22 Unknown Urine Ketones Negative mg/dL (Negative) 02/18/22 Unknown Ur Ketones (Man) Negative (Negative) 03/27/22 08:36 Urine Blood Trace (Negative) 02/18/22 Unknown Urine Nitrite Negative (Negative) 02/18/22 Unknown Ur Nitrite (Man) Negative (Negative) 03/27/22 08:36 Ur Reducing Substances Not Reportable 03/27/22 08:36 Urine Bilirubin Negative (Negative) 02/18/22 Unknown Urine Bilirubin (Man) Negative (Negative) 03/27/22 08:36 Urine Ictotest Not Reportable 03/27/22 08:36 Urine Urobilinogen < 2.0 mg/dL (<2.0) 02/18/22 Unknown Ur Leukocyte Esterase Negative (Negative) 02/18/22 Unknown Leukocyte Esterase (Man) Moderate (Negative) 03/27/22 08:36 Urine WBC (Auto) > 182.0 /HPF (0.0-6.0) H 03/27/22 08:36 Urine RBC (Auto) 9.0 /HPF (0.0-6.0) 03/27/22 08:36 U Epithel Cells (Auto) < 1.0 /HPF (0-13.0) 03/27/22 08:36 Urine RBC (Manual) 1+ (Negative) 03/27/22 08:36 Urine Mucus Few /HPF 03/27/22 08:36 Urine Yeast (Budding) 2+ /HPF 03/27/22 08:36 Urine Opiates Screen Negative 02/18/22 Unknown Urine Methadone Screen Negative 02/18/22 Unknown Ur Barbiturates Screen Negative 02/18/22 Unknown Ur Phencyclidine Scrn Negative 02/18/22 Unknown Ur Amphetamines Screen Negative 02/18/22 Unknown U Benzodiazepines Scrn Negative 02/18/22 Unknown Urine Cocaine Screen Negative 02/18/22 Unknown U Marijuana (THC) Screen Negative 02/18/22 Unknown Drugs of Abuse Note Disclamer 02/18/22 Unknown Plasma/Serum Alcohol < 0.01 % (0-0.07) 02/18/22 21:02 Summers/IV: Voiding Method Indwelling Catheter Active Medications - Current Medications Current Medications: Generic Name Dose Route Start Last Admin Trade Name Freq PRN Reason Stop Dose Admin Acetaminophen 650 mg 03/03/22 09:00 Acetaminophen 325 Mg/10.15 Ml Oral Liqd Unit Dose FEEDTUBE Q4H PRN Pain, Mild (1-3); TEMP > 100.4 Albuterol 2.5 mg 03/12/22 20:00 04/07/22 07:15 Albuterol 2.5 Mg/3 Ml Nebu IH 2.5 mg Q6HRT LAZARUS Administration Famotidine 20 mg 02/25/22 10:00 04/06/22 23:19 Famotidine 20 Mg Tab FEEDTUBE 20 mg BID LAZARUS Administration Heparin Sodium (Porcine) 5,000 unit 02/19/22 06:00 04/07/22 06:40 Heparin 5,000 Unit/1 Ml Vial SUB-Q Not Given Q8HR LAZARUS Levetiracetam 500 mg 02/25/22 22:00 04/06/22 23:19 Levetiracetam 500 Mg/5 Ml Oral Liqd FEEDTUBE 500 mg BID LAZARUS Administration Levothyroxine Sodium 25 mcg 02/26/22 06:00 04/07/22 06:40 Levothyroxine 25 Mcg Tab FEEDTUBE 25 mcg QAM@0600 LAZARUS Administration Magnesium Hydroxide 30 ml 02/19/22 02:02 04/03/22 04:14 Magnesium Hydroxide (Mom) Oral Liqd Udc PO 30 ml Q4H PRN Administration Constipation Midodrine 5 mg 04/03/22 12:00 04/06/22 17:06 Midodrine 5 Mg Tab FEEDTUBE 5 mg TID@0800,1200,1600 LAZARUS Administration Multi-Ingred Cream/Lotion/Oil/Oint 1 applic 02/24/22 15:05 Mineral Oil/Petrolatum, White Ophth Oint 3.5 Gm OU Q4HR PRN Dry Eye(s) Ondansetron HCl 4 mg 02/19/22 02:02 Ondansetron 4 Mg/2 Ml Inj IV Q8H PRN Nausea And Vomiting Pravastatin Sodium 40 mg 02/25/22 22:00 04/06/22 23:19 Pravastatin 40 Mg Tab FEEDTUBE 40 mg QHS LAZARUS Administration Senna/Docusate Sodium 1 tab 02/24/22 22:00 04/06/22 23:19 Sennosides/Docusate Sodium 8.6/50 Mg Tab FEEDTUBE 1 tab BID LAZARUS Administration Sodium Chloride 10 ml 02/19/22 10:00 04/06/22 23:19 Sodium Chloride 0.9% 10 Ml Flush Syringe IV 10 ml BID LAZARUS Administration Sodium Chloride 10 ml 02/19/22 02:02 03/03/22 14:21 Sodium Chloride 0.9% 10 Ml Flush Syringe IV 10 ml PRN PRN Administration LINE FLUSH Nutrition/Malnutrition Assess - Dietary Evaluation Nutrition/Malnutrition Findings: Nutrition Notes Start: 02/19/22 14:29 Freq: Status: Active Protocol: Document 04/04/22 13:07 IVAN (Rec: 04/04/22 13:10 IVAN [id number]) Nutrition Notes Initial or Follow up Brief Note Current Diet TF - Promote at 65ml/hr Subjective/Other Information Observed Promote infusing at goal rate of 65ml/hr. Pt tolerating TF at goal rate. BM documented on 04/01 and 04/03 . Pt remains on vent support. Percent of energy/protein needs met: 98% energy 100% pro Nutrition Intervention Follow-Up By: 04/11/22 Additional Comments F/U: stable TF, vent status, trach/PEG placement, BM
--- NOTE | 2022-04-06 12:14 | Progress Note ---
Assessment and Plan 61 y/o male with abnormal CT of chest. 04/06/2022: Day #31 of intubation no significant change PSV trials failed. Continue the current ventilator settings. Patient on 30% FiO2. Await trach and PEG 04/05/2022:. Day #30 of intubation no significant change remains orally intubated on PRVC. We will continue with the current ventilator settings. We will try weaning and PSV trial once has trach. 04/04/22: Day 29 of intubation. Now with guardian, consent can be obtained. hopeful will have surgery sometime next week. Continue supportive measures including daily weaning trials. 04/03/22: Day [address] appointed guardian as it has been approved. 04/02/22: Day 37 of intubation. Continue daily PSV trials. Courts agree with guardianship now awaiting on one to be appointed. 04/01/22: Day 36 of intubation. Continue Daily PSV. Per CM awaiting guardian appointment as courts have agreed to this. 03/31/22: Day 35 of intubation. CBC and chemistry is stable. Awaiting courts and hospital. 03/30/22: Day 34 of intubation. No labs today. Monitor fever as he had low grade temp early am. Rocephin finished yesterday. 03/29/22: Day 33 of intubation. WC now normal. No fever. Hard stop date on the abx. Awaiting Hospital and Court about guardianship. 03/28/22: Day 32 of intubation. WBC better. No fever. Still awaiting hospital and courts. 03/27/22: Day 31 of intubation. Given increase in WBC will treat empirically with Rocephin. Follow up urine cultures. CXR appears stable, await official read. Guarded prognosis. 03/26/22: Day 30 of Intubation. Daily PSV trials. no new recommendations. 03/25/22: Day 29 of intubation. RT to try PSV this am, hesistant given low sats but improved with suctioning. Still no word from the hospital in regards to guardianship. I do not feel comfortable with attempting extubation again on this patient given his quick failure and difficult re-intubation. 03/24/22: Day 28 of intubation. reviewed my partners notes from the weekend. Glad patient is tolerating PSV however do not see conventional extubation in the near future given patient's mental status and how fast he failed extubation (within an hour) on his first attempt. Patient was also a difficult re- intubation. Follow up with CM and hospital tomorrow. Continue supportive measures. 03/21/22: Day 25 of intubation. No new updates from the hospital about guardianship. Wound care saw on yesterday. Continue daily PSV trials as tolerated. Guarded prognosis. 03/20/22: Day 24 of intubation. No new recommendations. Still awaiting hospital update in regards to guardianship so that decisions can be made. Continue supportive measures. Wound care to see today. 03/19/22: Day 23 of intubation. Prognosis is still guarded. Will discuss with RT about attempts at daily PSV trials. Per notes, Wound care to see , wound was present on admission. 03/18/22: Day 22 of intubation. Prognosis remains guarded. Not able to obtain trach and peg with consent. Continue daily PSV trials as tolerated. 03/17/22: Day 21 of intubation. Still awaiting some form of decision maker for trach and peg placement. Guarded prognosis. 03/16/22: Day 20 of intubation. BP stable. Continue midodrine. Awaiting emergency guardianship from Court to obtain consent for trach and peg. Guarded prognosis. 03/15/22: Day 19 of intubation. BP now is marginal more regularly. Will give an additional liter bolus of LR now. May need to increase Midodrine back to 5. Needs trach in order to be safely weaned from ventilator. Will need peg tube placement in addition to trach. Prognosis remains guarded. Continue PSV trials as tolerated. 03/14/22: Day 18 of intubation. Vitals stable and mental status is unchanged. Still in need of tracheostomy as well as peg tube placement. No guardian appointed yet. 03/13/22: Day 17 of intubation. Agree with bolus and restarting of midodrine. was stopped previously secondary to bradycardia. If patient spikes temp, will culture blood and urine and repeat CXR. Continue daily PSV trials to assess ability for vent liberation. Continues to need trach however no family/guardian to provide consent. Guarded prognosis. 03/12/22: Day 16 of intubation. Following up with hospital in regards to guardian. Continue supportive measures. Guarded prognosis. 03/11/22: hospital now attempting to find emergency guardian to have consent for trach as ethics committee cannot comment on this matter so unable to help. Until then will remain intubated orally. Failed PSV yesterday, will continue to attempt on daily basis. Unfortunate situation. Guarded prognosis. 03/10/22: Today nuñez day 14 of intubation. Given patient's mental state and increased risk of aspiration, the likelihood of conventional extubation with success is very very slim and the patient has already failed this in an extremely short period of time (less than 1 hour). I suspect that he will fail again if tried and could create more difficult reintubation as he was a di fficult reintubation on his failed extubation attempt. To prevent further decline and potential complications of prolonged mechanical ventilation, will discuss with ethics and the hospital to use 2 physician consent to obtain trach and peg for this patient with hopes of liberating him from the mechanical ventilator. he has very minimal vent requirements but as been stated several times above, he continues to aspirate and failed conventional extubation almost immediately. Will consult surgery today. Dr. Mancia is prepared to sign consent as well as myself. Hopeful surgery will be on board with this. Continue supportive care for now. Attempt daily PSV trials. 03/07/22: Daily PSV trials as tolerated. Still no one to step up as adult friend. patient has now been intubated since 02/24/22 and is approaching the time period in which prolonged mechanical ventilation could lead to significant complications that could be detrimental to health (infection, stenosis, malacia etc). Will discuss again with ethics but in regards to medical necessity, may need to consider two physician consent if no one is able to claim responsibility for this patient. He is a full code and we must work in his best interest to prevent further harm. Continue supportive measures but he is not a candidate for conventional extubation given his mental state, despite being on minimal support. He has already failed this before. 03/06/22: PSV trials daily. Will discuss with RT. Spoke with ethics. Plan in place and awaiting on news from long-term and state. Continue supportive measures. Patient has been intubated since 02/24/22 and is approaching the 2 week shadi of intubation will need to make decisions soon to avoid unnecessary complications related to prolonged intubation. 03/05/22: Will follow up with ethics today. Awaiting some guidance about consent for trach and peg. This is a medical necessity to liberate patient from mechanical ventilation. Continue supportive measures. Ok with daily PSV trials 03/04/22: Follow up with ethics later this afternoon. Spoke with RT and patient does have cuff leak, will stop steroids. Stopping midodrine as BP is stable and bradycardia likely from this. 03/03/22: Await ethics eval. CM has spoken with state as well. Daily cuff leaks. Will start to wean steroids tomorrow. Midodrine can cause bradycardia. If continues or worsens will stop. Guarded prognosis. 03/02/22: Continue supportive measures. Await ethics consult before surgery c onsult for trach and peg. no further need for fluid boluses. Will continue stress dose steroids but have daily air leak checks by RT. Still will need trach, will not attempt extubation again. Guarded prognosis. 03/01/22: Patient is having increased urine output. This could be the cause of new onset hypotension. Will bolus 2 more liters of LR now and reassess. If this continues may need to work up for SIADH including repeat head CT. Follow up ethics review of case. Will need trach for ventilator liberation. Overall prognosis remains guarded. 02/28/22: Will obtain CT neck, noncontrast to look for airway edema or other possible etiologies for failure. Needs ethics consult as given patient's mental state, inability to clear secretions appropriately, will need trach now that he has failed extubation. However he has no family and no POA so no one to give consent. Continue supportive measures. Guarded prognosis. 02/27/22: Continue improvement of oxygenation. Will drop PEEP down today with goal of being at 6 by in the morning. Will repeat CT scan to confirm improvement as no endobronchial lesion was seen, but also to make sure no parenchymal mass. There was no evidence of extrinsic compression during bronch. Likely extubation tomorrow post CT. 02/26/22: Repeat CXR now. Wean Vent as tolerated. Hopeful extubation soon. Mucous removed. NO ENDOBRONCHIAL LESION/MASS 02/25/22: Bronch tentatively planned for tomorrow with therapeutic scope. Awaiting GI lab to give a time. NPO after midnight. Continue high PEEP 02/24/22: WIll attempt to bronch tomorrow morning. NPO after midnight. Just received word from GI lab they are not able to do bronch tomorrow. Cancel NPO order. Continue to feed patient. Repeat ABG in AM along with CXR. 02/21/22: No new pulm recs for today. Please obtain repeat CXR likely on Thursday. If patient happens to get worse, likely not a candidate for bipap given his weak cough and mental state and inability to communicate. If worsens and requires intubation, will bronch then under emergent circumstances if no POA or family is able to be located. Continue CPT. Will discuss with RT about NT suctioning. 02/20/22: Saw speech while on the floor. Would like patient to be NPO now. Discussed with nurse on floor and with IMS. Same recs pulm way as yesterday. Would benefit from bronch if able to get consent as this is not emergent. Continue CPT and q shift NT suctioning. Reviewed admission in the past and of note, patient was recently admitted last month and had a CXR done on the 29 of January that was normal. Given this patient's medical history and the history that I obtained from the nursing staff that [facility] he was eating solid foods, I suspect that this is aspiration, possibly of a foreign body (most likely food) with atelectasis of the right lower lobe. It is highly unlikely that a mass evolved in size in less than a months time and patient, besides age, has no real risk factors for lung carcinoma. Discussed with the nurse and unfortunately there is no identifiable person that is able to give consent. Bronchoscopy is needed in the case to evaluate to see if lung mass is there vs foreign body, but at this time not able to do. In the meanwhile will recommend the following. 1. Will order CPT with neb therapy 3x daily 2. Suggest maybe NT suctioning q shift. May use nasal trumpet, however do not leave this device in the patient 3. Aspiration precautions 4. Consider speech eval to assess swallowing. Will continue to follow. CCT 31 minutes. Subjective Date of service: 04/06/22 Principal diagnosis: f/u Acute respiratory failure Interval history: No significant change currently sleeping back on [facility]. Still orally intubated. Not have a court appointed guardian, he may be able to get trach and PEG in near future. Failed PSV trial Objective - Exam Narrative Exam: General appearance: Present: no acute distress, well-nourished, obese - EENT Eyes: Present: PERRL - Neck Neck: Present: normal ROM - Respiratory Respiratory effort: normal Respiratory: bilateral: rhonchi - Cardiovascular Rhythm: regular Heart Sounds: Present: S1 & S2 - Extremities Extremities: no ischemia, pulses intact, pulses symmetrical Extremity abnormal: edema - Peripheral Assessment Generalized Edema Type: Non-pitting Edema Degree: 1+ Capillary Refill: < 3 seconds Skin Temperature: Warm Peripheral Pulses: within normal limits - Abdominal General gastrointestinal: soft, non-distended, normal bowel sounds - Integumentary Integumentary: Present: warm, dry - Psychiatric Psychiatric: other (Intubated, unresponsive. Not on any sedations) - Neurologic Neurologic: moves all extremities, other (Intubated, unresponsive. Not on any sedations) - Allied Health Allied health notes reviewed: nursing, case management Vital Signs - 12hr 04/06/22 04/06/22 04/06/22 01:00 02:00 02:35 Temperature Pulse Rate 81 79 Pulse Rate [ 91 H Anterior Bilateral Throughout] Pulse Rate [ From Monitor] Respiratory 14 18 Rate Respiratory 16 Rate [Anterior Bilateral Throughout] Blood Pressure 108/72 111/75 O2 Sat by Pulse 97 96 Oximetry 04/06/22 04/06/22 04/06/22 03:00 04:00 04:04 Temperature 98.6 F Pulse Rate 97 H 95 H 93 H Pulse Rate [ Anterior Bilateral Throughout] Pulse Rate [ 94 H From Monitor] Respiratory 21 19 Rate Respiratory Rate [Anterior Bilateral Throughout] Blood Pressure 111/75 110/66 110/66 O2 Sat by Pulse 97 96 94 Oximetry 04/06/22 04/06/22 04/06/22 05:00 06:00 07:00 Temperature Pulse Rate 90 96 H 92 H Pulse Rate [ Anterior Bilateral Throughout] Pulse Rate [ From Monitor] Respiratory 15 20 20 Rate Respiratory Rate [Anterior Bilateral Throughout] Blood Pressure 110/66 110/66 144/90 O2 Sat by Pulse 95 98 95 Oximetry 04/06/22 04/06/22 04/06/22 07:13 07:47 07:48 Temperature 97.7 F Pulse Rate 89 Pulse Rate [ 91 H Anterior Bilateral Throughout] Pulse Rate [ From Monitor] Respiratory Rate Respiratory 19 Rate [Anterior Bilateral Throughout] Blood Pressure 144/90 O2 Sat by Pulse 94 Oximetry 04/06/22 04/06/22 04/06/22 08:00 09:00 10:00 Temperature Pulse Rate 88 95 H 97 H Pulse Rate [ Anterior Bilateral Throughout] Pulse Rate [ From Monitor] Respiratory 19 21 22 Rate Respiratory Rate [Anterior Bilateral Throughout] Blood Pressure 125/73 125/73 131/75 O2 Sat by Pulse 95 92 Oximetry 04/06/22 04/06/22 04/06/22 11:00 11:38 12:00 Temperature 98.3 F Pulse Rate 95 H 90 Pulse Rate [ Anterior Bilateral Throughout] Pulse Rate [ From Monitor] Respiratory 21 19 Rate Respiratory Rate [Anterior Bilateral Throughout] Blood Pressure 131/75 132/75 O2 Sat by Pulse 94 94 Oximetry Constitutional: alert, other (critically ill on ventilator) Eyes: non-icteric ENT: oropharynx moist Neck: supple Effort: normal Ascultation: Bilateral: diminished breath sounds, rhonchi Cardiovascular: regular rate and rhythm (no mrg) Gastrointestinal: normoactive bowel sounds, soft, non-tender (on o2 vest in place), non-distended Integumentary: normal Extremities: no cyanosis, no edema Neurologic: other (awake) Psychiatric: other (unable to assess) CBC and BMP: 04/03/22 04:04 04/03/22 04:04 ABG, PT/INR, D-dimer: ABG ABG pH 7.392 pH Units (7.350-7.450) 03/22/22 14:25 ABG pCO2 54.4 mm Hg 03/22/22 14:25 ABG pO2 150.5 mm Hg (80.0-90.0) H 03/22/22 14:25 ABG O2 Saturation 98.8 % (95.0-99.0) 03/22/22 14:25 PT/INR, D-dimer PT 15.2 Sec. (12.2-14.9) H 04/03/22 04:04 INR 1.05 (0.87-1.13) 04/03/22 04:04 Abnormal lab findings: Abnormal Labs 02/18/22 02/18/22 02/18/22 19:34 21:02 21:02 WBC RBC Hgb Hct MCV 101 H MCH 34 H MCHC RDW 16.1 H Lymph % (Auto) [place] % (Auto) 12.4 H Lymph # (Auto) [place] # (Auto) 1.2 H Seg Neutrophils % 73.0 H Seg Neuts % (Manual) Lymphocytes % (Manual) Seg Neutrophils # Seg Neutrophils # Man Lymphocytes # (Manual) PT 16.9 H INR 1.20 H ABG pH ABG pO2 ABG HCO3 ABG O2 Saturation ABG Base Excess ABG Hemoglobin Oxyhemoglobin Sodium Potassium Chloride Carbon Dioxide BUN Creatinine Glucose POC Glucose 116 H Calcium Phosphorus AST ALT Ammonia Albumin Urine WBC (Auto) 02/18/22 02/18/22 02/18/22 21:02 22:45 23:22 WBC RBC Hgb Hct MCV MCH MCHC RDW Lymph % (Auto) [place] % (Auto) Lymph # (Auto) [place] # (Auto) Seg Neutrophils % Seg Neuts % (Manual) Lymphocytes % (Manual) Seg Neutrophils # Seg Neutrophils # Man Lymphocytes # (Manual) PT INR ABG pH ABG pO2 55.6 L ABG HCO3 28.4 H ABG O2 Saturation 91.5 L ABG Base Excess 3.8 H ABG Hemoglobin 13.2 L Oxyhemoglobin 89.6 L Sodium Potassium 5.1 H Chloride Carbon Dioxide BUN Creatinine Glucose 102 H POC Glucose Calcium Phosphorus AST 48 H ALT 64 H Ammonia 14.0 L Albumin 2.7 L Urine WBC (Auto) 02/20/22 02/20/22 02/23/22 04:59 04:59 06:29 WBC 11.4 H RBC Hgb Hct MCV 103 H MCH 33 H MCHC RDW 16.5 H Lymph % (Auto) 5.5 L [place] % (Auto) 12.1 H Lymph # (Auto) 0.6 L [place] # (Auto) 1.4 H Seg Neutrophils % 81.4 H Seg Neuts % (Manual) Lymphocytes % (Manual) Seg Neutrophils # 9.2 H Seg Neutrophils # Man Lymphocytes # (Manual) PT INR ABG pH ABG pO2 ABG HCO3 ABG O2 Saturation ABG Base Excess ABG Hemoglobin Oxyhemoglobin Sodium Potassium Chloride Carbon Dioxide BUN Creatinine Glucose POC Glucose 113 H Calcium 8.2 L Phosphorus AST ALT Ammonia Albumin Urine WBC (Auto) 02/23/22 02/23/22 02/24/22 11:22 16:10 00:02 WBC RBC Hgb Hct MCV MCH MCHC RDW Lymph % (Auto) [place] % (Auto) Lymph # (Auto) [place] # (Auto) Seg Neutrophils % Seg Neuts % (Manual) Lymphocytes % (Manual) Seg Neutrophils # Seg Neutrophils # Man Lymphocytes # (Manual) PT INR ABG pH ABG pO2 ABG HCO3 ABG O2 Saturation ABG Base Excess ABG Hemoglobin Oxyhemoglobin Sodium Potassium Chloride Carbon Dioxide BUN Creatinine Glucose POC Glucose 108 H 115 H 109 H Calcium Phosphorus AST ALT Ammonia Albumin Urine WBC (Auto) 02/24/22 02/24/22 02/24/22 11:05 11:05 13:20 WBC RBC 3.55 L Hgb Hct MCV 100 H MCH 34 H MCHC RDW 15.6 H Lymph % (Auto) [place] % (Auto) Lymph # (Auto) [place] # (Auto) Seg Neutrophils % Seg Neuts % (Manual) Lymphocytes % (Manual) Seg Neutrophils # Seg Neutrophils # Man Lymphocytes # (Manual) PT INR ABG pH ABG pO2 ABG HCO3 ABG O2 Saturation ABG Base Excess ABG Hemoglobin Oxyhemoglobin Sodium 146 H Potassium 3.2 L D Chloride 108.4 H Carbon Dioxide BUN Creatinine 0.5 L Glucose POC Glucose 111 H Calcium 7.9 L Phosphorus 2.20 L AST ALT Ammonia Albumin Urine WBC (Auto) 02/24/22 02/24/22 02/24/22 16:30 17:03 20:25 WBC RBC Hgb Hct MCV MCH MCHC RDW Lymph % (Auto) [place] % (Auto) Lymph # (Auto) [place] # (Auto) Seg Neutrophils % Seg Neuts % (Manual) Lymphocytes % (Manual) Seg Neutrophils # Seg Neutrophils # Man Lymphocytes # (Manual) PT INR ABG pH 7.319 L ABG pO2 65.3 L ABG HCO3 31.3 H ABG O2 Saturation 92.2 L ABG Base Excess 3.8 H ABG Hemoglobin 12.0 L Oxyhemoglobin 90.3 L Sodium Potassium Chloride 107.9 H Carbon Dioxide BUN 8 L Creatinine 0.4 L Glucose POC Glucose 108 H Calcium 7.6 L Phosphorus 4.60 H D AST ALT Ammonia Albumin Urine WBC (Auto) 02/25/22 02/25/22 02/25/22 04:12 04:12 05:05 WBC RBC 3.07 L Hgb 10.2 L Hct 31.5 L MCV 103 H MCH 33 H MCHC RDW 15.6 H Lymph % (Auto) [place] % (Auto) Lymph # (Auto) [place] # (Auto) Seg Neutrophils % Seg Neuts % (Manual) Lymphocytes % (Manual) Seg Neutrophils # Seg Neutrophils # Man Lymphocytes # (Manual) PT INR ABG pH ABG pO2 ABG HCO3 32.5 H ABG O2 Saturation ABG Base Excess 5.6 H ABG Hemoglobin 10.8 L Oxyhemoglobin 94.8 L Sodium Potassium 3.5 L Chloride 107.7 H Carbon Dioxide BUN Creatinine 0.5 L Glucose POC Glucose Calcium 7.0 L Phosphorus AST ALT Ammonia Albumin Urine WBC (Auto) 02/25/22 02/25/22 02/26/22 12:05 18:33 00:07 WBC RBC Hgb Hct MCV MCH MCHC RDW Lymph % (Auto) [place] % (Auto) Lymph # (Auto) [place] # (Auto) Seg Neutrophils % Seg Neuts % (Manual) Lymphocytes % (Manual) Seg Neutrophils # Seg Neutrophils # Man Lymphocytes # (Manual) PT INR ABG pH ABG pO2 ABG HCO3 ABG O2 Saturation ABG Base Excess ABG Hemoglobin Oxyhemoglobin Sodium Potassium Chloride Carbon Dioxide BUN Creatinine Glucose POC Glucose 127 H 125 H 114 H Calcium Phosphorus AST ALT Ammonia Albumin Urine WBC (Auto) 02/26/22 02/26/22 02/26/22 03:30 04:42 11:34 WBC RBC Hgb Hct MCV MCH MCHC RDW Lymph % (Auto) [place] % (Auto) Lymph # (Auto) [place] # (Auto) Seg Neutrophils % Seg Neuts % (Manual) Lymphocytes % (Manual) Seg Neutrophils # Seg Neutrophils # Man Lymphocytes # (Manual) PT INR ABG pH ABG pO2 143.2 H ABG HCO3 33.2 H ABG O2 Saturation ABG Base Excess 6.5 H ABG Hemoglobin 9.4 L Oxyhemoglobin Sodium Potassium Chloride Carbon Dioxide 32 H BUN Creatinine 0.7 L Glucose POC Glucose 114 H Calcium 8.0 L Phosphorus AST ALT Ammonia Albumin Urine WBC (Auto) 02/26/22 02/26/22 02/27/22 18:17 23:37 04:19 WBC 13.7 H RBC 2.78 L Hgb 9.3 L Hct 28.5 L MCV 103 H MCH 33 H MCHC RDW 16.3 H Lymph % (Auto) [place] % (Auto) Lymph # (Auto) [place] # (Auto) Seg Neutrophils % Seg Neuts % (Manual) Lymphocytes % (Manual) Seg Neutrophils # Seg Neutrophils # Man Lymphocytes # (Manual) PT INR ABG pH ABG pO2 ABG HCO3 ABG O2 Saturation ABG Base Excess ABG Hemoglobin Oxyhemoglobin Sodium Potassium Chloride Carbon Dioxide BUN Creatinine Glucose POC Glucose 111 H 117 H Calcium Phosphorus AST ALT Ammonia Albumin Urine WBC (Auto) 02/27/22 02/27/22 02/27/22 04:19 04:35 05:27 WBC RBC Hgb Hct MCV MCH MCHC RDW Lymph % (Auto) [place] % (Auto) Lymph # (Auto) [place] # (Auto) Seg Neutrophils % Seg Neuts % (Manual) Lymphocytes % (Manual) Seg Neutrophils # Seg Neutrophils # Man Lymphocytes # (Manual) PT INR ABG pH ABG pO2 96.3 H ABG HCO3 34.9 H ABG O2 Saturation ABG Base Excess 8.1 H ABG Hemoglobin Oxyhemoglobin Sodium Potassium Chloride Carbon Dioxide 31 H BUN Creatinine 0.6 L Glucose 107 H POC Glucose 133 H Calcium 7.8 L Phosphorus AST ALT Ammonia Albumin Urine WBC (Auto) 02/27/22 02/27/22 02/28/22 11:15 23:35 03:38 WBC 13.3 H RBC 3.05 L Hgb 10.2 L Hct 30.7 L MCV 101 H MCH 33 H MCHC RDW 16.1 H Lymph % (Auto) [place] % (Auto) Lymph # (Auto) [place] # (Auto) Seg Neutrophils % Seg Neuts % (Manual) Lymphocytes % (Manual) Seg Neutrophils # Seg Neutrophils # Man Lymphocytes # (Manual) PT INR ABG pH ABG pO2 ABG HCO3 ABG O2 Saturation ABG Base Excess ABG Hemoglobin Oxyhemoglobin Sodium Potassium Chloride Carbon Dioxide BUN Creatinine Glucose POC Glucose 129 H 122 H Calcium Phosphorus AST ALT Ammonia Albumin Urine WBC (Auto) 02/28/22 02/28/22 02/28/22 04:50 05:30 09:30 WBC RBC Hgb Hct MCV MCH MCHC RDW Lymph % (Auto) [place] % (Auto) Lymph # (Auto) [place] # (Auto) Seg Neutrophils % Seg Neuts % (Manual) Lymphocytes % (Manual) Seg Neutrophils # Seg Neutrophils # Man Lymphocytes # (Manual) PT INR ABG pH 7.451 H 7.488 H ABG pO2 77.0 L ABG HCO3 37.1 H 34.6 H ABG O2 Saturation ABG Base Excess 11.5 H 10.1 H ABG Hemoglobin 10.1 L 10.0 L Oxyhemoglobin Sodium Potassium Chloride Carbon Dioxide BUN Creatinine Glucose POC Glucose 121 H Calcium Phosphorus AST ALT Ammonia Albumin Urine WBC (Auto) 02/28/22 02/28/22 03/01/22 11:36 23:07 04:27 WBC 12.5 H RBC 2.85 L Hgb 9.5 L Hct 28.6 L MCV 101 H MCH 33 H MCHC RDW 15.7 H Lymph % (Auto) [place] % (Auto) Lymph # (Auto) [place] # (Auto) Seg Neutrophils % Seg Neuts % (Manual) Lymphocytes % (Manual) Seg Neutrophils # Seg Neutrophils # Man Lymphocytes # (Manual) PT INR ABG pH ABG pO2 ABG HCO3 ABG O2 Saturation ABG Base Excess ABG Hemoglobin Oxyhemoglobin Sodium Potassium Chloride Carbon Dioxide BUN Creatinine Glucose POC Glucose 112 H 107 H Calcium Phosphorus AST ALT Ammonia Albumin Urine WBC (Auto) 03/01/22 03/01/22 03/01/22 04:27 05:05 11:29 WBC RBC Hgb Hct MCV MCH MCHC RDW Lymph % (Auto) [place] % (Auto) Lymph # (Auto) [place] # (Auto) Seg Neutrophils % Seg Neuts % (Manual) Lymphocytes % (Manual) Seg Neutrophils # Seg Neutrophils # Man Lymphocytes # (Manual) PT INR ABG pH ABG pO2 ABG HCO3 ABG O2 Saturation ABG Base Excess ABG Hemoglobin Oxyhemoglobin Sodium 147 H D Potassium Chloride Carbon Dioxide 34 H BUN Creatinine 0.6 L Glucose 128 H POC Glucose 119 H 121 H Calcium 7.9 L Phosphorus AST ALT Ammonia Albumin Urine WBC (Auto) 03/01/22 03/01/22 03/02/22 16:15 23:57 05:18 WBC RBC Hgb Hct MCV MCH MCHC RDW Lymph % (Auto) [place] % (Auto) Lymph # (Auto) [place] # (Auto) Seg Neutrophils % Seg Neuts % (Manual) Lymphocytes % (Manual) Seg Neutrophils # Seg Neutrophils # Man Lymphocytes # (Manual) PT INR ABG pH ABG pO2 110.5 H ABG HCO3 33.0 H ABG O2 Saturation ABG Base Excess 7.4 H ABG Hemoglobin 8.6 L Oxyhemoglobin Sodium Potassium Chloride Carbon Dioxide BUN Creatinine Glucose POC Glucose 134 H 140 H Calcium Phosphorus AST ALT Ammonia Albumin Urine WBC (Auto) 03/02/22 03/02/22 03/02/22 05:53 09:04 09:04 WBC 15.0 H RBC 3.00 L Hgb 9.7 L Hct 30.7 L MCV 102 H MCH MCHC RDW 16.6 H Lymph % (Auto) [place] % (Auto) Lymph # (Auto) [place] # (Auto) Seg Neutrophils % Seg Neuts % (Manual) Lymphocytes % (Manual) Seg Neutrophils # Seg Neutrophils # Man Lymphocytes # (Manual) PT INR ABG pH ABG pO2 ABG HCO3 ABG O2 Saturation ABG Base Excess ABG Hemoglobin Oxyhemoglobin Sodium Potassium Chloride Carbon Dioxide 31 H BUN Creatinine 0.6 L Glucose 157 H POC Glucose 158 H Calcium 7.9 L Phosphorus AST ALT Ammonia Albumin Urine WBC (Auto) 03/02/22 03/02/22 03/02/22 11:36 16:25 23:17 WBC RBC Hgb Hct MCV MCH MCHC RDW Lymph % (Auto) [place] % (Auto) Lymph # (Auto) [place] # (Auto) Seg Neutrophils % Seg Neuts % (Manual) Lymphocytes % (Manual) Seg Neutrophils # Seg Neutrophils # Man Lymphocytes # (Manual) PT INR ABG pH ABG pO2 ABG HCO3 ABG O2 Saturation ABG Base Excess ABG Hemoglobin Oxyhemoglobin Sodium Potassium Chloride Carbon Dioxide BUN Creatinine Glucose POC Glucose 160 H 132 H 157 H Calcium Phosphorus AST ALT Ammonia Albumin Urine WBC (Auto) 03/03/22 03/03/22 03/03/22 03:54 03:54 05:27 WBC 19.5 H RBC 2.79 L Hgb 9.0 L Hct 28.6 L MCV 102 H MCH MCHC RDW 16.2 H Lymph % (Auto) [place] % (Auto) Lymph # (Auto) [place] # (Auto) Seg Neutrophils % Seg Neuts % (Manual) 95.0 H Lymphocytes % (Manual) 3.0 L Seg Neutrophils # Seg Neutrophils # Man 18.5 H Lymphocytes # (Manual) 0.6 L PT INR ABG pH ABG pO2 ABG HCO3 ABG O2 Saturation ABG Base Excess ABG Hemoglobin Oxyhemoglobin Sodium Potassium Chloride Carbon Dioxide BUN Creatinine 0.6 L Glucose 130 H POC Glucose 149 H Calcium 8.1 L Phosphorus AST ALT Ammonia Albumin Urine WBC (Auto) 03/03/22 03/03/22 03/04/22 11:13 17:30 00:02 WBC RBC Hgb Hct MCV MCH MCHC RDW Lymph % (Auto) [place] % (Auto) Lymph # (Auto) [place] # (Auto) Seg Neutrophils % Seg Neuts % (Manual) Lymphocytes % (Manual) Seg Neutrophils # Seg Neutrophils # Man Lymphocytes # (Manual) PT INR ABG pH ABG pO2 ABG HCO3 ABG O2 Saturation ABG Base Excess ABG Hemoglobin Oxyhemoglobin Sodium Potassium Chloride Carbon Dioxide BUN Creatinine Glucose POC Glucose 139 H 138 H 157 H Calcium Phosphorus AST ALT Ammonia Albumin Urine WBC (Auto) 03/04/22 03/04/22 03/04/22 05:32 05:32 05:48 WBC 16.1 H RBC 2.81 L Hgb 9.3 L Hct 28.8 L MCV 102 H MCH 33 H MCHC RDW 16.7 H Lymph % (Auto) [place] % (Auto) Lymph # (Auto) [place] # (Auto) Seg Neutrophils % Seg Neuts % (Manual) Lymphocytes % (Manual) Seg Neutrophils # Seg Neutrophils # Man Lymphocytes # (Manual) PT INR ABG pH ABG pO2 ABG HCO3 ABG O2 Saturation ABG Base Excess ABG Hemoglobin Oxyhemoglobin Sodium Potassium Chloride Carbon Dioxide BUN Creatinine 0.7 L Glucose 135 H POC Glucose 145 H Calcium 8.3 L Phosphorus AST ALT Ammonia Albumin Urine WBC (Auto) 03/04/22 03/04/22 03/05/22 11:34 16:29 00:28 WBC RBC Hgb Hct MCV MCH MCHC RDW Lymph % (Auto) [place] % (Auto) Lymph # (Auto) [place] # (Auto) Seg Neutrophils % Seg Neuts % (Manual) Lymphocytes % (Manual) Seg Neutrophils # Seg Neutrophils # Man Lymphocytes # (Manual) PT INR ABG pH ABG pO2 ABG HCO3 ABG O2 Saturation ABG Base Excess ABG Hemoglobin Oxyhemoglobin Sodium Potassium Chloride Carbon Dioxide BUN Creatinine Glucose POC Glucose 148 H 140 H 116 H Calcium Phosphorus AST ALT Ammonia Albumin Urine WBC (Auto) 03/05/22 03/05/22 03/05/22 06:29 11:30 17:38 WBC RBC Hgb Hct MCV MCH MCHC RDW Lymph % (Auto) [place] % (Auto) Lymph # (Auto) [place] # (Auto) Seg Neutrophils % Seg Neuts % (Manual) Lymphocytes % (Manual) Seg Neutrophils # Seg Neutrophils # Man Lymphocytes # (Manual) PT INR ABG pH ABG pO2 ABG HCO3 ABG O2 Saturation ABG Base Excess ABG Hemoglobin Oxyhemoglobin Sodium Potassium Chloride Carbon Dioxide BUN Creatinine Glucose POC Glucose 114 H 114 H 117 H Calcium Phosphorus AST ALT Ammonia Albumin Urine WBC (Auto) 0803/06/22 03/06/22 04:17 04:17 06:06 WBC 13.4 H RBC 2.85 L Hgb 9.4 L Hct 29.0 L MCV 102 H MCH 33 H MCHC RDW 16.4 H Lymph % (Auto) [place] % (Auto) Lymph # (Auto) [place] # (Auto) Seg Neutrophils % Seg Neuts % (Manual) Lymphocytes % (Manual) Seg Neutrophils # Seg Neutrophils # Man Lymphocytes # (Manual) PT INR ABG pH ABG pO2 ABG HCO3 ABG O2 Saturation ABG Base Excess ABG Hemoglobin Oxyhemoglobin Sodium Potassium 3.5 L Chloride Carbon Dioxide 31 H BUN Creatinine 0.6 L Glucose 101 H POC Glucose 106 H Calcium 7.7 L Phosphorus 2.00 L AST ALT Ammonia Albumin Urine WBC (Auto) 03/06/22 03/06/22 03/07/22 18:04 23:50 05:14 WBC RBC Hgb Hct MCV MCH MCHC RDW Lymph % (Auto) [place] % (Auto) Lymph # (Auto) [place] # (Auto) Seg Neutrophils % Seg Neuts % (Manual) Lymphocytes % (Manual) Seg Neutrophils # Seg Neutrophils # Man Lymphocytes # (Manual) PT INR ABG pH ABG pO2 ABG HCO3 ABG O2 Saturation ABG Base Excess ABG Hemoglobin Oxyhemoglobin Sodium Potassium Chloride Carbon Dioxide BUN Creatinine Glucose POC Glucose 108 H 115 H 116 H Calcium Phosphorus AST ALT Ammonia Albumin Urine WBC (Auto) 03/07/22 03/07/22 03/08/22 11:42 18:13 04:34 WBC RBC 2.86 L Hgb 9.2 L Hct 29.3 L MCV 103 H MCH MCHC 31 L RDW 16.9 H Lymph % (Auto) [place] % (Auto) Lymph # (Auto) [place] # (Auto) Seg Neutrophils % Seg Neuts % (Manual) Lymphocytes % (Manual) Seg Neutrophils # Seg Neutrophils # Man Lymphocytes # (Manual) PT INR ABG pH ABG pO2 ABG HCO3 ABG O2 Saturation ABG Base Excess ABG Hemoglobin Oxyhemoglobin Sodium Potassium Chloride Carbon Dioxide BUN Creatinine Glucose POC Glucose 123 H 109 H Calcium Phosphorus AST ALT Ammonia Albumin Urine WBC (Auto) 03/08/22 03/08/22 03/08/22 04:34 11:29 16:34 WBC RBC Hgb Hct MCV MCH MCHC RDW Lymph % (Auto) [place] % (Auto) Lymph # (Auto) [place] # (Auto) Seg Neutrophils % Seg Neuts % (Manual) Lymphocytes % (Manual) Seg Neutrophils # Seg Neutrophils # Man Lymphocytes # (Manual) PT INR ABG pH ABG pO2 ABG HCO3 ABG O2 Saturation ABG Base Excess ABG Hemoglobin Oxyhemoglobin Sodium Potassium Chloride Carbon Dioxide 33 H BUN Creatinine 0.5 L Glucose 109 H POC Glucose 117 H 109 H Calcium 7.6 L Phosphorus AST ALT Ammonia Albumin Urine WBC (Auto) 03/08/22 03/09/22 03/10/22 23:56 11:15 03:57 WBC RBC 2.99 L Hgb 9.9 L Hct 30.3 L MCV 102 H MCH 33 H MCHC RDW 16.8 H Lymph % (Auto) 13.3 L [place] % (Auto) 12.5 H Lymph # (Auto) [place] # (Auto) 1.3 H Seg Neutrophils % 72.4 H Seg Neuts % (Manual) Lymphocytes % (Manual) Seg Neutrophils # Seg Neutrophils # Man Lymphocytes # (Manual) PT INR ABG pH ABG pO2 ABG HCO3 ABG O2 Saturation ABG Base Excess ABG Hemoglobin Oxyhemoglobin Sodium Potassium Chloride Carbon Dioxide BUN Creatinine Glucose POC Glucose 106 H 110 H Calcium Phosphorus AST ALT Ammonia Albumin Urine WBC (Auto) 03/10/22 03/10/22 03/10/22 03:57 04:50 16:04 WBC RBC Hgb Hct MCV MCH MCHC RDW Lymph % (Auto) [place] % (Auto) Lymph # (Auto) [place] # (Auto) Seg Neutrophils % Seg Neuts % (Manual) Lymphocytes % (Manual) Seg Neutrophils # Seg Neutrophils # Man Lymphocytes # (Manual) PT INR ABG pH 7.465 H ABG pO2 ABG HCO3 31.9 H ABG O2 Saturation ABG Base Excess 7.3 H ABG Hemoglobin 11.0 L Oxyhemoglobin Sodium Potassium 3.4 L Chloride Carbon Dioxide BUN Creatinine 0.6 L Glucose POC Glucose 115 H Calcium 8.1 L Phosphorus AST ALT Ammonia Albumin 1.9 L Urine WBC (Auto) 03/11/22 03/11/22 03/11/22 04:02 04:02 04:02 WBC 12.0 H RBC 2.81 L Hgb 9.2 L Hct 29.1 L MCV 103 H MCH 33 H MCHC RDW 17.5 H Lymph % (Auto) [place] % (Auto) Lymph # (Auto) [place] # (Auto) Seg Neutrophils % Seg Neuts % (Manual) Lymphocytes % (Manual) Seg Neutrophils # Seg Neutrophils # Man Lymphocytes # (Manual) PT 16.2 H INR 1.16 H ABG pH ABG pO2 ABG HCO3 ABG O2 Saturation ABG Base Excess ABG Hemoglobin Oxyhemoglobin Sodium Potassium Chloride Carbon Dioxide BUN Creatinine 0.5 L Glucose 104 H POC Glucose Calcium 7.9 L Phosphorus AST ALT Ammonia Albumin Urine WBC (Auto) 03/11/22 03/11/22 03/11/22 05:10 11:07 16:32 WBC RBC Hgb Hct MCV MCH MCHC RDW Lymph % (Auto) [place] % (Auto) Lymph # (Auto) [place] # (Auto) Seg Neutrophils % Seg Neuts % (Manual) Lymphocytes % (Manual) Seg Neutrophils # Seg Neutrophils # Man Lymphocytes # (Manual) PT INR ABG pH 7.476 H ABG pO2 ABG HCO3 29.7 H ABG O2 Saturation ABG Base Excess 5.7 H ABG Hemoglobin 9.1 L Oxyhemoglobin Sodium Potassium Chloride Carbon Dioxide BUN Creatinine Glucose POC Glucose 108 H 121 H Calcium Phosphorus AST ALT Ammonia Albumin Urine WBC (Auto) 03/12/22 03/13/22 03/13/22 05:51 06:08 12:02 WBC RBC 2.73 L Hgb 9.0 L Hct 27.5 L MCV 101 H MCH 33 H MCHC RDW 17.2 H Lymph % (Auto) [place] % (Auto) Lymph # (Auto) [place] # (Auto) Seg Neutrophils % Seg Neuts % (Manual) Lymphocytes % (Manual) Seg Neutrophils # Seg Neutrophils # Man Lymphocytes # (Manual) PT INR ABG pH ABG pO2 ABG HCO3 ABG O2 Saturation ABG Base Excess ABG Hemoglobin Oxyhemoglobin Sodium Potassium Chloride Carbon Dioxide BUN Creatinine Glucose POC Glucose 116 H 111 H Calcium Phosphorus AST ALT Ammonia Albumin Urine WBC (Auto) 03/13/22 03/13/22 03/14/22 12:48 18:17 03:58 WBC RBC 2.97 L Hgb 9.7 L Hct 30.0 L MCV 101 H MCH 33 H MCHC RDW 16.7 H Lymph % (Auto) [place] % (Auto) Lymph # (Auto) [place] # (Auto) Seg Neutrophils % Seg Neuts % (Manual) Lymphocytes % (Manual) Seg Neutrophils # Seg Neutrophils # Man Lymphocytes # (Manual) PT INR ABG pH ABG pO2 ABG HCO3 ABG O2 Saturation ABG Base Excess ABG Hemoglobin Oxyhemoglobin Sodium Potassium Chloride Carbon Dioxide BUN Creatinine Glucose POC Glucose 125 H 114 H Calcium Phosphorus AST ALT Ammonia Albumin Urine WBC (Auto) 03/14/22 03/14/22 03/14/22 03:58 13:01 16:41 WBC RBC Hgb Hct MCV MCH MCHC RDW Lymph % (Auto) [place] % (Auto) Lymph # (Auto) [place] # (Auto) Seg Neutrophils % Seg Neuts % (Manual) Lymphocytes % (Manual) Seg Neutrophils # Seg Neutrophils # Man Lymphocytes # (Manual) PT INR ABG pH ABG pO2 ABG HCO3 ABG O2 Saturation ABG Base Excess ABG Hemoglobin Oxyhemoglobin Sodium Potassium Chloride Carbon Dioxide BUN Creatinine 0.6 L Glucose POC Glucose 118 H 109 H Calcium 8.2 L Phosphorus AST ALT Ammonia Albumin Urine WBC (Auto) 03/16/22 03/16/22 03/17/22 05:28 05:28 23:19 WBC RBC 2.81 L Hgb 9.1 L Hct 27.8 L MCV 99 H MCH MCHC RDW 17.0 H Lymph % (Auto) [place] % (Auto) Lymph # (Auto) [place] # (Auto) Seg Neutrophils % Seg Neuts % (Manual) Lymphocytes % (Manual) Seg Neutrophils # Seg Neutrophils # Man Lymphocytes # (Manual) PT INR ABG pH ABG pO2 ABG HCO3 ABG O2 Saturation ABG Base Excess ABG Hemoglobin Oxyhemoglobin Sodium Potassium Chloride Carbon Dioxide BUN Creatinine 0.5 L Glucose POC Glucose 113 H Calcium 8.2 L Phosphorus AST ALT Ammonia Albumin Urine WBC (Auto) 03/20/22 03/20/22 03/20/22 04:09 04:09 17:22 WBC RBC 2.90 L Hgb 9.6 L Hct 28.9 L MCV 100 H MCH 33 H MCHC RDW 17.4 H Lymph % (Auto) [place] % (Auto) Lymph # (Auto) [place] # (Auto) Seg Neutrophils % Seg Neuts % (Manual) Lymphocytes % (Manual) Seg Neutrophils # Seg Neutrophils # Man Lymphocytes # (Manual) PT INR ABG pH ABG pO2 ABG HCO3 ABG O2 Saturation ABG Base Excess ABG Hemoglobin Oxyhemoglobin Sodium Potassium Chloride Carbon Dioxide BUN Creatinine 0.6 L Glucose POC Glucose 110 H Calcium 8.2 L Phosphorus AST ALT Ammonia Albumin Urine WBC (Auto) 03/21/22 03/21/22 03/22/22 18:24 23:09 12:18 WBC RBC Hgb Hct MCV MCH MCHC RDW Lymph % (Auto) [place] % (Auto) Lymph # (Auto) [place] # (Auto) Seg Neutrophils % Seg Neuts % (Manual) Lymphocytes % (Manual) Seg Neutrophils # Seg Neutrophils # Man Lymphocytes # (Manual) PT INR ABG pH ABG pO2 ABG HCO3 ABG O2 Saturation ABG Base Excess ABG Hemoglobin Oxyhemoglobin Sodium Potassium Chloride Carbon Dioxide BUN Creatinine Glucose POC Glucose 110 H 107 H 106 H Calcium Phosphorus AST ALT Ammonia Albumin Urine WBC (Auto) 03/22/22 03/23/22 03/23/22 14:25 00:21 11:31 WBC RBC Hgb Hct MCV MCH MCHC RDW Lymph % (Auto) [place] % (Auto) Lymph # (Auto) [place] # (Auto) Seg Neutrophils % Seg Neuts % (Manual) Lymphocytes % (Manual) Seg Neutrophils # Seg Neutrophils # Man Lymphocytes # (Manual) PT INR ABG pH ABG pO2 150.5 H ABG HCO3 32.4 H ABG O2 Saturation ABG Base Excess 6.2 H ABG Hemoglobin 11.4 L Oxyhemoglobin Sodium Potassium Chloride Carbon Dioxide BUN Creatinine Glucose POC Glucose 107 H 110 H Calcium Phosphorus AST ALT Ammonia Albumin Urine WBC (Auto) 03/24/22 03/24/22 03/24/22 03:47 03:47 05:56 WBC RBC 3.18 L Hgb 10.1 L Hct 31.1 L MCV 98 H MCH MCHC RDW 17.4 H Lymph % (Auto) [place] % (Auto) Lymph # (Auto) [place] # (Auto) Seg Neutrophils % Seg Neuts % (Manual) Lymphocytes % (Manual) Seg Neutrophils # Seg Neutrophils # Man Lymphocytes # (Manual) PT INR ABG pH ABG pO2 ABG HCO3 ABG O2 Saturation ABG Base Excess ABG Hemoglobin Oxyhemoglobin Sodium Potassium Chloride Carbon Dioxide BUN Creatinine 0.5 L Glucose POC Glucose 107 H Calcium Phosphorus AST ALT Ammonia Albumin Urine WBC (Auto) 03/24/22 03/25/22 03/25/22 11:15 00:14 11:24 WBC RBC Hgb Hct MCV MCH MCHC RDW Lymph % (Auto) [place] % (Auto) Lymph # (Auto) [place] # (Auto) Seg Neutrophils % Seg Neuts % (Manual) Lymphocytes % (Manual) Seg Neutrophils # Seg Neutrophils # Man Lymphocytes # (Manual) PT INR ABG pH ABG pO2 ABG HCO3 ABG O2 Saturation ABG Base Excess ABG Hemoglobin Oxyhemoglobin Sodium Potassium Chloride Carbon Dioxide BUN Creatinine Glucose POC Glucose 126 H 109 H 110 H Calcium Phosphorus AST ALT Ammonia Albumin Urine WBC (Auto) 03/25/22 03/26/22 03/26/22 16:27 05:18 11:15 WBC RBC Hgb Hct MCV MCH MCHC RDW Lymph % (Auto) [place] % (Auto) Lymph # (Auto) [place] # (Auto) Seg Neutrophils % Seg Neuts % (Manual) Lymphocytes % (Manual) Seg Neutrophils # Seg Neutrophils # Man Lymphocytes # (Manual) PT INR ABG pH ABG pO2 ABG HCO3 ABG O2 Saturation ABG Base Excess ABG Hemoglobin Oxyhemoglobin Sodium Potassium Chloride Carbon Dioxide BUN Creatinine Glucose POC Glucose 123 H 114 H 135 H Calcium Phosphorus AST ALT Ammonia Albumin Urine WBC (Auto) 03/26/22 03/27/22 03/27/22 18:08 03:52 03:52 WBC 17.1 H RBC 2.94 L Hgb 9.2 L Hct 29.3 L MCV 100 H MCH MCHC 31 L RDW 17.5 H Lymph % (Auto) [place] % (Auto) Lymph # (Auto) [place] # (Auto) Seg Neutrophils % Seg Neuts % (Manual) Lymphocytes % (Manual) Seg Neutrophils # Seg Neutrophils # Man Lymphocytes # (Manual) PT INR ABG pH ABG pO2 ABG HCO3 ABG O2 Saturation ABG Base Excess ABG Hemoglobin Oxyhemoglobin Sodium 136 L Potassium Chloride Carbon Dioxide 32 H BUN 23 H Creatinine 0.6 L Glucose POC Glucose 130 H Calcium 8.2 L Phosphorus AST ALT Ammonia Albumin Urine WBC (Auto) 03/27/22 03/27/22 03/27/22 08:36 12:55 18:27 WBC RBC Hgb Hct MCV MCH MCHC RDW Lymph % (Auto) [place] % (Auto) Lymph # (Auto) [place] # (Auto) Seg Neutrophils % Seg Neuts % (Manual) Lymphocytes % (Manual) Seg Neutrophils # Seg Neutrophils # Man Lymphocytes # (Manual) PT INR ABG pH ABG pO2 ABG HCO3 ABG O2 Saturation ABG Base Excess ABG Hemoglobin Oxyhemoglobin Sodium Potassium Chloride Carbon Dioxide BUN Creatinine Glucose POC Glucose 137 H 114 H Calcium Phosphorus AST ALT Ammonia Albumin Urine WBC (Auto) > 182.0 H 03/28/22 03/28/22 03/28/22 01:00 04:06 04:52 WBC 14.2 H RBC 2.76 L Hgb 8.6 L Hct 26.8 L MCV 97 H MCH MCHC RDW 17.4 H Lymph % (Auto) 7.5 L [place] % (Auto) 10.5 H Lymph # (Auto) 1.1 L [place] # (Auto) 1.5 H Seg Neutrophils % 80.7 H Seg Neuts % (Manual) Lymphocytes % (Manual) Seg Neutrophils # 11.4 H Seg Neutrophils # Man Lymphocytes # (Manual) PT INR ABG pH ABG pO2 ABG HCO3 ABG O2 Saturation ABG Base Excess ABG Hemoglobin Oxyhemoglobin Sodium Potassium Chloride Carbon Dioxide BUN Creatinine Glucose POC Glucose 111 H 111 H Calcium Phosphorus AST ALT Ammonia Albumin Urine WBC (Auto) 03/28/22 03/28/22 03/29/22 12:09 23:23 04:22 WBC RBC 2.85 L Hgb 8.9 L Hct 27.8 L MCV 98 H MCH MCHC RDW 17.8 H Lymph % (Auto) [place] % (Auto) Lymph # (Auto) [place] # (Auto) Seg Neutrophils % Seg Neuts % (Manual) Lymphocytes % (Manual) Seg Neutrophils # Seg Neutrophils # Man Lymphocytes # (Manual) PT INR ABG pH ABG pO2 ABG HCO3 ABG O2 Saturation ABG Base Excess ABG Hemoglobin Oxyhemoglobin Sodium Potassium Chloride Carbon Dioxide BUN Creatinine Glucose POC Glucose 114 H 112 H Calcium Phosphorus AST ALT Ammonia Albumin Urine WBC (Auto) 03/29/22 03/29/22 03/29/22 05:56 12:22 23:39 WBC RBC Hgb Hct MCV MCH MCHC RDW Lymph % (Auto) [place] % (Auto) Lymph # (Auto) [place] # (Auto) Seg Neutrophils % Seg Neuts % (Manual) Lymphocytes % (Manual) Seg Neutrophils # Seg Neutrophils # Man Lymphocytes # (Manual) PT INR ABG pH ABG pO2 ABG HCO3 ABG O2 Saturation ABG Base Excess ABG Hemoglobin Oxyhemoglobin Sodium Potassium Chloride Carbon Dioxide BUN Creatinine Glucose POC Glucose 116 H 130 H 121 H Calcium Phosphorus AST ALT Ammonia Albumin Urine WBC (Auto) 03/30/22 03/30/22 03/30/22 11:52 16:04 23:05 WBC RBC Hgb Hct MCV MCH MCHC RDW Lymph % (Auto) [place] % (Auto) Lymph # (Auto) [place] # (Auto) Seg Neutrophils % Seg Neuts % (Manual) Lymphocytes % (Manual) Seg Neutrophils # Seg Neutrophils # Man Lymphocytes # (Manual) PT INR ABG pH ABG pO2 ABG HCO3 ABG O2 Saturation ABG Base Excess ABG Hemoglobin Oxyhemoglobin Sodium Potassium Chloride Carbon Dioxide BUN Creatinine Glucose POC Glucose 127 H 122 H 113 H Calcium Phosphorus AST ALT Ammonia Albumin Urine WBC (Auto) 03/31/22 03/31/22 03/31/22 03:56 03:56 10:59 WBC RBC 3.08 L Hgb 9.5 L Hct 30.1 L MCV 98 H MCH MCHC RDW 17.7 H Lymph % (Auto) [place] % (Auto) Lymph # (Auto) [place] # (Auto) Seg Neutrophils % Seg Neuts % (Manual) Lymphocytes % (Manual) Seg Neutrophils # Seg Neutrophils # Man Lymphocytes # (Manual) PT INR ABG pH ABG pO2 ABG HCO3 ABG O2 Saturation ABG Base Excess ABG Hemoglobin Oxyhemoglobin Sodium 135 L Potassium Chloride 97.4 L Carbon Dioxide 31 H BUN Creatinine 0.5 L Glucose 102 H POC Glucose 120 H Calcium Phosphorus AST ALT Ammonia Albumin Urine WBC (Auto) 04/01/22 04/01/22 04/01/22 00:09 06:08 11:03 WBC RBC Hgb Hct MCV MCH MCHC RDW Lymph % (Auto) [place] % (Auto) Lymph # (Auto) [place] # (Auto) Seg Neutrophils % Seg Neuts % (Manual) Lymphocytes % (Manual) Seg Neutrophils # Seg Neutrophils # Man Lymphocytes # (Manual) PT INR ABG pH ABG pO2 ABG HCO3 ABG O2 Saturation ABG Base Excess ABG Hemoglobin Oxyhemoglobin Sodium Potassium Chloride Carbon Dioxide BUN Creatinine Glucose POC Glucose 118 H 137 H 133 H Calcium Phosphorus AST ALT Ammonia Albumin Urine WBC (Auto) 04/01/22 04/02/22 04/02/22 17:36 05:49 13:25 WBC RBC Hgb Hct MCV MCH MCHC RDW Lymph % (Auto) [place] % (Auto) Lymph # (Auto) [place] # (Auto) Seg Neutrophils % Seg Neuts % (Manual) Lymphocytes % (Manual) Seg Neutrophils # Seg Neutrophils # Man Lymphocytes # (Manual) PT INR ABG pH ABG pO2 ABG HCO3 ABG O2 Saturation ABG Base Excess ABG Hemoglobin Oxyhemoglobin Sodium Potassium Chloride Carbon Dioxide BUN Creatinine Glucose POC Glucose 116 H 107 H 124 H Calcium Phosphorus AST ALT Ammonia Albumin Urine WBC (Auto) 04/02/22 04/03/22 04/03/22 17:06 04:04 04:04 WBC RBC Hgb Hct MCV 98 H MCH MCHC RDW 17.9 H Lymph % (Auto) [place] % (Auto) Lymph # (Auto) [place] # (Auto) Seg Neutrophils % Seg Neuts % (Manual) Lymphocytes % (Manual) Seg Neutrophils # Seg Neutrophils # Man Lymphocytes # (Manual) PT 15.2 H INR ABG pH ABG pO2 ABG HCO3 ABG O2 Saturation ABG Base Excess ABG Hemoglobin Oxyhemoglobin Sodium Potassium Chloride Carbon Dioxide BUN Creatinine Glucose POC Glucose 110 H Calcium Phosphorus AST ALT Ammonia Albumin Urine WBC (Auto) 04/03/22 04/03/22 04/03/22 04:04 11:40 17:21 WBC RBC Hgb Hct MCV MCH MCHC RDW Lymph % (Auto) [place] % (Auto) Lymph # (Auto) [place] # (Auto) Seg Neutrophils % Seg Neuts % (Manual) Lymphocytes % (Manual) Seg Neutrophils # Seg Neutrophils # Man Lymphocytes # (Manual) PT INR ABG pH ABG pO2 ABG HCO3 ABG O2 Saturation ABG Base Excess ABG Hemoglobin Oxyhemoglobin Sodium 136 L Potassium Chloride 97.1 L Carbon Dioxide BUN Creatinine 0.6 L Glucose POC Glucose 117 H 107 H Calcium Phosphorus 4.90 H AST ALT Ammonia Albumin Urine WBC (Auto) 04/03/22 04/04/22 04/04/22 23:50 11:39 17:51 WBC RBC Hgb Hct MCV MCH MCHC RDW Lymph % (Auto) [place] % (Auto) Lymph # (Auto) [place] # (Auto) Seg Neutrophils % Seg Neuts % (Manual) Lymphocytes % (Manual) Seg Neutrophils # Seg Neutrophils # Man Lymphocytes # (Manual) PT INR ABG pH ABG pO2 ABG HCO3 ABG O2 Saturation ABG Base Excess ABG Hemoglobin Oxyhemoglobin Sodium Potassium Chloride Carbon Dioxide BUN Creatinine Glucose POC Glucose 115 H 117 H 122 H Calcium Phosphorus AST ALT Ammonia Albumin Urine WBC (Auto) 04/04/22 04/05/22 04/05/22 23:16 05:48 21:28 WBC RBC Hgb Hct MCV MCH MCHC RDW Lymph % (Auto) [place] % (Auto) Lymph # (Auto) [place] # (Auto) Seg Neutrophils % Seg Neuts % (Manual) Lymphocytes % (Manual) Seg Neutrophils # Seg Neutrophils # Man Lymphocytes # (Manual) PT INR ABG pH ABG pO2 ABG HCO3 ABG O2 Saturation ABG Base Excess ABG Hemoglobin Oxyhemoglobin Sodium Potassium Chloride Carbon Dioxide BUN Creatinine Glucose POC Glucose 117 H 116 H 116 H Calcium Phosphorus AST ALT Ammonia Albumin Urine WBC (Auto)
[2022-04-06] MEDS: PRAVASTATIN 40 MG TAB FEEDTUBE SCH (23:19)
[2022-04-07] MEDS: ALBUTEROL 2.5 MG/3 ML NEBU IH SCH ×4 (02:42→19:50)
[2022-04-07 05:12] LABS: Hematocrit 34.2 % (35.5-45.6); Hemoglobin 10.8 gm/dl (11.8-15.2); Mean Corpuscular HGB Conc 31 % (32-34); Mean Corpuscular Volume 97 fl (84-94); Platelet Count 352 K/mm3 (140-440); Red Blood Count 3.55 M/mm3 (3.65-5.03); Red Cell Distribution Width 18.6 % (13.2-15.2)
[2022-04-07 05:21] LABS: Blood Urea Nitrogen 21 mg/dL (9-20); Calcium 8.9 mg/dL (8.4-10.2); Hemolysis Index 3
[2022-04-07 05:29] LABS: INR 1.06 (0.87-1.13)
[2022-04-07 05:35] LABS: BUN/Creatinine Ratio 35
[2022-04-07] MEDS: HEPARIN 5,000 UNIT/1 ML VIAL SUB-Q SCH ×3 (06:40→23:06)
[2022-04-07] MEDS: LEVOTHYROXINE 25 MCG TAB FEEDTUBE SCH (06:40)
[2022-04-07] MEDS: FAMOTIDINE 20 MG TAB FEEDTUBE SCH ×2 (09:14→23:07)
[2022-04-07] MEDS: levETIRAcetam 500 MG/5 ML ORAL LIQD FEEDTUBE SCH ×2 (09:14→23:06)
[2022-04-07] MEDS: MIDODRINE 5 MG TAB FEEDTUBE SCH ×3 (09:14→18:24)
[2022-04-07] MEDS: SENNOSIDES/DOCUSATE SODIUM 8.6/50 MG TAB FEEDTUBE SCH ×2 (09:14→23:06)
--- NOTE | 2022-04-07 11:49 | Progress Note ---
Assessment and Plan 61 y/o male with abnormal CT of chest. 04/07/22: Day 42 of intubation. Awaiting consents to be obtained for trach and peg. Continue pSV trials. All supportive measures. 04/04/22: Day 39 of intubation. Now with guardian, consent can be obtained. hopeful will have surgery sometime next week. Continue supportive measures including daily weaning trials. 04/03/22: Day [address] appointed guardian as it has been approved. 04/02/22: Day 37 of intubation. Continue daily PSV trials. Courts agree with guardianship now awaiting on one to be appointed. 04/01/22: Day 36 of intubation. Continue Daily PSV. Per CM awaiting guardian appointment as courts have agreed to this. 03/31/22: Day 35 of intubation. CBC and chemistry is stable. Awaiting courts and hospital. 03/30/22: Day 34 of intubation. No labs today. Monitor fever as he had low grade temp early am. Rocephin finished yesterday. 03/29/22: Day 33 of intubation. WC now normal. No fever. Hard stop date on the abx. Awaiting Hospital and Court about guardianship. 03/28/22: Day 32 of intubation. WBC better. No fever. Still awaiting hospital and courts. 03/27/22: Day 31 of intubation. Given increase in WBC will treat empirically with Rocephin. Follow up urine cultures. CXR appears stable, await official read. Guarded prognosis. 03/26/22: Day 30 of Intubation. Daily PSV trials. no new recommendations. 03/25/22: Day 29 of intubation. RT to try PSV this am, hesistant given low sats but improved with suctioning. Still no word from the hospital in regards to guardianship. I do not feel comfortable with attempting extubation again on this patient given his quick failure and difficult re-intubation. 03/24/22: Day 28 of intubation. reviewed my partners notes from the weekend. Glad patient is tolerating PSV however do not see conventional extubation in the near future given patient's mental status and how fast he failed extubation (within an hour) on his first attempt. Patient was also a difficult re- intubation. Follow up with and hospital tomorrow. Continue supportive measures. 03/21/22: Day 25 of intubation. No new updates from the hospital about guardianship. Wound care saw on yesterday. Continue daily PSV trials as tolerated. Guarded prognosis. 03/20/22: Day 24 of intubation. No new recommendations. Still awaiting hospital update in regards to guardianship so that decisions can be made. Continue supportive measures. Wound care to see today. 03/19/22: Day 23 of intubation. Prognosis is still guarded. Will discuss with RT about attempts at daily PSV trials. Per notes, Wound care to see , wound was present on admission. 03/18/22: Day 22 of intubation. Prognosis remains guarded. Not able to obtain trach and peg with consent. Continue daily PSV trials as tolerated. 03/17/22: Day 21 of intubation. Still awaiting some form of decision maker for trach and peg placement. Guarded prognosis. 03/16/22: Day 20 of intubation. BP stable. Continue midodrine. Awaiting emerg ency guardianship from Court to obtain consent for trach and peg. Guarded prognosis. 03/15/22: Day 19 of intubation. BP now is marginal more regularly. Will give an additional liter bolus of LR now. May need to increase Midodrine back to 5. Needs trach in order to be safely weaned from ventilator. Will need peg tube placement in addition to trach. Prognosis remains guarded. Continue PSV trials as tolerated. 03/14/22: Day 18 of intubation. Vitals stable and mental status is unchanged. Still in need of tracheostomy as well as peg tube placement. No guardian appointed yet. 03/13/22: Day 17 of intubation. Agree with bolus and restarting of midodrine. was stopped previously secondary to bradycardia. If patient spikes temp, will culture blood and urine and repeat CXR. Continue daily PSV trials to assess ability for vent liberation. Continues to need trach however no family/guardian to provide consent. Guarded prognosis. 03/12/22: Day 16 of intubation. Following up with hospital in regards to guardian. Continue supportive measures. Guarded prognosis. 03/11/22: hospital now attempting to find emergency guardian to have consent for trach as ethics committee cannot comment on this matter so unable to help. Until then will remain intubated orally. Failed PSV yesterday, will continue to attempt on daily basis. Unfortunate situation. Guarded prognosis. 03/10/22: Today nuñez day 14 of intubation. Given patient's mental state and increased risk of aspiration, the likelihood of conventional extubation with success is very very slim and the patient has already failed this in an extremely short period of time (less than 1 hour). I suspect that he will fail again if tried and could create more difficult reintubation as he was a difficult reintubation on his failed extubation attempt. To prevent further decline and potential complications of prolonged mechanical ventilation, will discuss with ethics and the hospital to use 2 physician consent to obtain trach and peg for this patient with hopes of liberating him from the mechanical ventilator. he has very minimal vent requirements but as been stated several times above, he continues to aspirate and failed conventional extubation almost immediately. Will consult surgery today. Dr. Mancia is prepared to sign consent as well as myself. Hopeful surgery will be on board with this. Continue supportive care for now. Attempt daily PSV trials. 03/07/22: Daily PSV trials as tolerated. Still no one to step up as adult friend. patient has now been intubated since 02/24/22 and is approaching the time period in which prolonged mechanical ventilation could lead to significant complications that could be detrimental to health (infection, stenosis, malacia etc). Will discuss again with ethics but in regards to medical necessity, may need to consider two physician consent if no one is able to claim responsibility for this patient. He is a full code and we must work in his best interest to prevent further harm. Continue supportive measures but he is not a candidate for conventional extubation given his mental state, despite being on minimal support. He has already failed this before. 03/06/22: PSV trials daily. Will discuss with RT. Spoke with ethics. Plan in place and awaiting on news from retirement and state. Continue supportive measures. Patient has been intubated since 02/24/22 and is approaching the 2 week shadi of intubation will need to make decisions soon to avoid unnecessary complications related to prolonged intubation. 03/05/22: Will follow up with ethics today. Awaiting some guidance about consent for trach and peg. This is a medical necessity to liberate patient from mechanical ventilation. Continue supportive measures. Ok with daily PSV trials 03/04/22: Follow up with ethics later this afternoon. Spoke with RT and patient does have cuff leak, will stop steroids. Stopping midodrine as BP is stable and bradycardia likely from this. 03/03/22: Await ethics eval. CM has spoken with state as well. Daily cuff leaks. Will start to wean steroids tomorrow. Midodrine can cause bradycardia. If continues or worsens will stop. Guarded prognosis. 03/02/22: Continue supportive measures. Await ethics consult before surgery consult for trach and peg. no further need for fluid boluses. Will continue stress dose steroids but have daily air leak checks by RT. Still will need trach, will not attempt extubation again. Guarded prognosis. 03/01/22: Patient is having increased urine output. This could be the cause of new onset hypotension. Will bolus 2 more liters of LR now and reassess. If this continues may need to work up for SIADH including repeat head CT. Follow up ethics review of case. Will need trach for ventilator liberation. Overall prognosis remains guarded. 02/28/22: Will obtain CT neck, noncontrast to look for airway edema or other possible etiologies for failure. Needs ethics consult as given patient's mental state, inability to clear secretions appropriately, will need trach now that he has failed extubation. However he has no family and no POA so no one to give consent. Continue supportive measures. Guarded prognosis. 02/27/22: Continue improvement of oxygenation. Will drop PEEP down today with goal of being at 6 by in the morning. Will repeat CT scan to confirm improvement as no endobronchial lesion was seen, but also to make sure no parenchymal mass. There was no evidence of extrinsic compression during bronch. Likely extubation tomorrow post CT. 02/26/22: Repeat CXR now. Wean Vent as tolerated. Hopeful extubation soon. Mucous removed. NO ENDOBRONCHIAL LESION/MASS 02/25/22: Bronch tentatively planned for tomorrow with therapeutic scope. Awaiting GI lab to give a time. NPO after midnight. Continue high PEEP 02/24/22: WIll attempt to bronch tomorrow morning. NPO after midnight. Just received word from GI lab they are not able to do bronch tomorrow. Cancel NPO order. Continue to feed patient. Repeat ABG in AM along with CXR. 02/21/22: No new pulm recs for today. Please obtain repeat CXR likely on Thursday. If patient happens to get worse, likely not a candidate for bipap given his weak cough and mental state and inability to communicate. If worsens and requires intubation, will bronch then under emergent circumstances if no POA or family is able to be located. Continue CPT. Will discuss with RT about NT suctioning. 02/20/22: Saw speech while on the floor. Would like patient to be NPO now. Discussed with nurse on floor and with IMS. Same hazel [address] as yesterday. Would benefit from bronch if able to get consent as this is not emergent. Continue CPT and q shift NT suctioning. Reviewed admission in the past and of note, patient was recently admitted last month and had a CXR done on the 29 of January that was normal. Given this p mayuri's medical history and the history that I obtained from the nursing staff that at the halfway he was eating solid foods, I suspect that this is aspiration, possibly of a foreign body (most likely food) with atelectasis of the right lower lobe. It is highly unlikely that a mass evolved in size in less than a months time and patient, besides age, has no real risk factors for lung carcinoma. Discussed with the nurse and unfortunately there is no identifiable person that is able to give consent. Bronchoscopy is needed in the case to evaluate to see if lung mass is there vs foreign body, but at this time not able to do. In the meanwhile will recommend the following. 1. Will order CPT with neb therapy 3x daily 2. Suggest maybe NT suctioning q shift. May use nasal trumpet, however do not leave this device in the patient 3. Aspiration precautions 4. Consider speech eval to assess swallowing. Will continue to follow. CCT 31 minutes. Subjective Date of service: 04/07/22 Principal diagnosis: f/u Acute respiratory failure Interval history: No acute events. Guardian has been appointed. Objective Vital Signs - 12hr 04/07/22 04/07/22 04/07/22 00:00 00:15 01:00 Temperature 98.6 F Pulse Rate 86 81 86 Pulse Rate [ Anterior Bilateral Throughout] Pulse Rate [ From Monitor] Respiratory 15 1 L 16 Rate Respiratory Rate [Anterior Bilateral Throughout] Blood Pressure 121/72 121/72 121/72 O2 Sat by Pulse 92 98 96 Oximetry 04/07/22 04/07/22 04/07/22 02:00 02:42 03:00 Temperature Pulse Rate 78 97 H Pulse Rate [ 91 H Anterior Bilateral Throughout] Pulse Rate [ From Monitor] Respiratory 11 L 20 Rate Respiratory 90 H Rate [Anterior Bilateral Throughout] Blood Pressure 109/66 109/66 O2 Sat by Pulse 95 98 Oximetry 04/07/22 04/07/22 04/07/22 04:00 04:15 05:00 Temperature 99.2 F Pulse Rate 95 H 95 H 89 Pulse Rate [ Anterior Bilateral Throughout] Pulse Rate [ From Monitor] Respiratory 19 6 L 18 Rate Respiratory Rate [Anterior Bilateral Throughout] Blood Pressure 130/73 130/73 132/78 O2 Sat by Pulse 94 97 95 Oximetry 04/07/22 04/07/22 04/07/22 06:00 07:00 07:15 Temperature 99.3 F Pulse Rate 89 91 H 91 H Pulse Rate [ 90 Anterior Bilateral Throughout] Pulse Rate [ From Monitor] Respiratory 18 15 Rate Respiratory 15 Rate [Anterior Bilateral Throughout] Blood Pressure 126/75 129/75 129/69 O2 Sat by Pulse 92 92 98 Oximetry 04/07/22 04/07/22 04/07/22 07:57 08:00 08:50 Temperature Pulse Rate 87 86 91 H Pulse Rate [ Anterior Bilateral Throughout] Pulse Rate [ 86 From Monitor] Respiratory 14 18 Rate Respiratory Rate [Anterior Bilateral Throughout] Blood Pressure 126/75 109/71 O2 Sat by Pulse 99 95 Oximetry 04/07/22 04/07/22 04/07/22 09:00 10:09 11:00 Temperature Pulse Rate 89 88 89 Pulse Rate [ Anterior Bilateral Throughout] Pulse Rate [ From Monitor] Respiratory 18 16 17 Rate Respiratory Rate [Anterior Bilateral Throughout] Blood Pressure 112/67 109/71 O2 Sat by Pulse 96 97 95 Oximetry 04/07/22 11:41 Temperature 98.2 F Pulse Rate Pulse Rate [ Anterior Bilateral Throughout] Pulse Rate [ From Monitor] Respiratory Rate Respiratory Rate [Anterior Bilateral Throughout] Blood Pressure O2 Sat by Pulse Oximetry Constitutional: alert, other (critically ill on ventilator) Eyes: non-icteric ENT: oropharynx moist Neck: supple Effort: normal Ascultation: Bilateral: diminished breath sounds, rhonchi Cardiovascular: regular rate and rhythm (no mrg) Gastrointestinal: normoactive bowel sounds, soft, non-tender (on o2 vest in place), non-distended Integumentary: normal Extremities: no cyanosis, no edema Neurologic: other (awake) Psychiatric: other (unable to assess) CBC and BMP: 04/07/22 03:55 04/07/22 03:55 ABG, PT/INR, D-dimer: ABG ABG pH 7.392 pH Units (7.350-7.450) 03/22/22 14:25 ABG pCO2 54.4 mm Hg 03/22/22 14:25 ABG pO2 150.5 mm Hg (80.0-90.0) H 03/22/22 14:25 ABG O2 Saturation 98.8 % (95.0-99.0) 03/22/22 14:25 PT/INR, D-dimer PT 15.0 Sec. (12.2-14.9) H 04/07/22 03:55 INR 1.06 (0.87-1.13) 04/07/22 03:55 Abnormal lab findings: Abnormal Labs 02/18/22 02/18/22 02/18/22 19:34 21:02 21:02 WBC RBC Hgb Hct MCV 101 H MCH 34 H MCHC RDW 16.1 H Lymph % (Auto) Stanley % (Auto) 12.4 H Lymph # (Auto) Stanley # (Auto) 1.2 H Seg Neutrophils % 73.0 H Seg Neuts % (Manual) Lymphocytes % (Manual) Seg Neutrophils # Seg Neutrophils # Man Lymphocytes # (Manual) PT 16.9 H INR 1.20 H ABG pH ABG pO2 ABG HCO3 ABG O2 Saturation ABG Base Excess ABG Hemoglobin Oxyhemoglobin Sodium Potassium Chloride Carbon Dioxide BUN Creatinine Glucose POC Glucose 116 H Calcium Phosphorus AST ALT Ammonia Albumin Urine WBC (Auto) 02/18/22 02/18/22 02/18/22 21:02 22:45 23:22 WBC RBC Hgb Hct MCV MCH MCHC RDW Lymph % (Auto) Stanley % (Auto) Lymph # (Auto) Stanley # (Auto) Seg Neutrophils % Seg Neuts % (Manual) Lymphocytes % (Manual) Seg Neutrophils # Seg Neutrophils # Man Lymphocytes # (Manual) PT INR ABG pH ABG pO2 55.6 L ABG HCO3 28.4 H ABG O2 Saturation 91.5 L ABG Base Excess 3.8 H ABG Hemoglobin 13.2 L Oxyhemoglobin 89.6 L Sodium Potassium 5.1 H Chloride Carbon Dioxide BUN Creatinine Glucose 102 H POC Glucose Calcium Phosphorus AST 48 H ALT 64 H Ammonia 14.0 L Albumin 2.7 L Urine WBC (Auto) 02/20/22 02/20/22 02/23/22 04:59 04:59 06:29 WBC 11.4 H RBC Hgb Hct MCV 103 H MCH 33 H MCHC RDW 16.5 H Lymph % (Auto) 5.5 L Stanley % (Auto) 12.1 H Lymph # (Auto) 0.6 L Stanley # (Auto) 1.4 H Seg Neutrophils % 81.4 H Seg Neuts % (Manual) Lymphocytes % (Manual) Seg Neutrophils # 9.2 H Seg Neutrophils # Man Lymphocytes # (Manual) PT INR ABG pH ABG pO2 ABG HCO3 ABG O2 Saturation ABG Base Excess ABG Hemoglobin Oxyhemoglobin Sodium Potassium Chloride Carbon Dioxide BUN Creatinine Glucose POC Glucose 113 H Calcium 8.2 L Phosphorus AST ALT Ammonia Albumin Urine WBC (Auto) 02/23/22 02/23/22 02/24/22 11:22 16:10 00:02 WBC RBC Hgb Hct MCV MCH MCHC RDW Lymph % (Auto) Stanley % (Auto) Lymph # (Auto) Stanley # (Auto) Seg Neutrophils % Seg Neuts % (Manual) Lymphocytes % (Manual) Seg Neutrophils # Seg Neutrophils # Man Lymphocytes # (Manual) PT INR ABG pH ABG pO2 ABG HCO3 ABG O2 Saturation ABG Base Excess ABG Hemoglobin Oxyhemoglobin Sodium Potassium Chloride Carbon Dioxide BUN Creatinine Glucose POC Glucose 108 H 115 H 109 H Calcium Phosphorus AST ALT Ammonia Albumin Urine WBC (Auto) 02/24/22 02/24/22 02/24/22 11:05 11:05 13:20 WBC RBC 3.55 L Hgb Hct MCV 100 H MCH 34 H MCHC RDW 15.6 H Lymph % (Auto) Stanley % (Auto) Lymph # (Auto) Stanley # (Auto) Seg Neutrophils % Seg Neuts % (Manual) Lymphocytes % (Manual) Seg Neutrophils # Seg Neutrophils # Man Lymphocytes # (Manual) PT INR ABG pH ABG pO2 ABG HCO3 ABG O2 Saturation ABG Base Excess ABG Hemoglobin Oxyhemoglobin Sodium 146 H Potassium 3.2 L D Chloride 108.4 H Carbon Dioxide BUN Creatinine 0.5 L Glucose POC Glucose 111 H Calcium 7.9 L Phosphorus 2.20 L AST ALT Ammonia Albumin Urine WBC (Auto) 02/24/22 02/24/22 02/24/22 16:30 17:03 20:25 WBC RBC Hgb Hct MCV MCH MCHC RDW Lymph % (Auto) Stanley % (Auto) Lymph # (Auto) Stanley # (Auto) Seg Neutrophils % Seg Neuts % (Manual) Lymphocytes % (Manual) Seg Neutrophils # Seg Neutrophils # Man Lymphocytes # (Manual) PT INR ABG pH 7.319 L ABG pO2 65.3 L ABG HCO3 31.3 H ABG O2 Saturation 92.2 L ABG Base Excess 3.8 H ABG Hemoglobin 12.0 L Oxyhemoglobin 90.3 L Sodium Potassium Chloride 107.9 H Carbon Dioxide BUN 8 L Creatinine 0.4 L Glucose POC Glucose 108 H Calcium 7.6 L Phosphorus 4.60 H D AST ALT Ammonia Albumin Urine WBC (Auto) 02/25/22 02/25/22 02/25/22 04:12 04:12 05:05 WBC RBC 3.07 L Hgb 10.2 L Hct 31.5 L MCV 103 H MCH 33 H MCHC RDW 15.6 H Lymph % (Auto) Stanley % (Auto) Lymph # (Auto) Stanley # (Auto) Seg Neutrophils % Seg Neuts % (Manual) Lymphocytes % (Manual) Seg Neutrophils # Seg Neutrophils # Man Lymphocytes # (Manual) PT INR ABG pH ABG pO2 ABG HCO3 32.5 H ABG O2 Saturation ABG Base Excess 5.6 H ABG Hemoglobin 10.8 L Oxyhemoglobin 94.8 L Sodium Potassium 3.5 L Chloride 107.7 H Carbon Dioxide BUN Creatinine 0.5 L Glucose POC Glucose Calcium 7.0 L Phosphorus AST ALT Ammonia Albumin Urine WBC (Auto) 02/25/22 02/25/22 02/26/22 12:05 18:33 00:07 WBC RBC Hgb Hct MCV MCH MCHC RDW Lymph % (Auto) Stanley % (Auto) Lymph # (Auto) Stanley # (Auto) Seg Neutrophils % Seg Neuts % (Manual) Lymphocytes % (Manual) Seg Neutrophils # Seg Neutrophils # Man Lymphocytes # (Manual) PT INR ABG pH ABG pO2 ABG HCO3 ABG O2 Saturation ABG Base Excess ABG Hemoglobin Oxyhemoglobin Sodium Potassium Chloride Carbon Dioxide BUN Creatinine Glucose POC Glucose 127 H 125 H 114 H Calcium Phosphorus AST ALT Ammonia Albumin Urine WBC (Auto) 02/26/22 02/26/22 02/26/22 03:30 04:42 11:34 WBC RBC Hgb Hct MCV MCH MCHC RDW Lymph % (Auto) Stanley % (Auto) Lymph # (Auto) Stanley # (Auto) Seg Neutrophils % Seg Neuts % (Manual) Lymphocytes % (Manual) Seg Neutrophils # Seg Neutrophils # Man Lymphocytes # (Manual) PT INR ABG pH ABG pO2 143.2 H ABG HCO3 33.2 H ABG O2 Saturation ABG Base Excess 6.5 H ABG Hemoglobin 9.4 L Oxyhemoglobin Sodium Potassium Chloride Carbon Dioxide 32 H BUN Creatinine 0.7 L Glucose POC Glucose 114 H Calcium 8.0 L Phosphorus AST ALT Ammonia Albumin Urine WBC (Auto) 02/26/22 02/26/22 02/27/22 18:17 23:37 04:19 WBC 13.7 H RBC 2.78 L Hgb 9.3 L Hct 28.5 L MCV 103 H MCH 33 H MCHC RDW 16.3 H Lymph % (Auto) Stanley % (Auto) Lymph # (Auto) Stanley # (Auto) Seg Neutrophils % Seg Neuts % (Manual) Lymphocytes % (Manual) Seg Neutrophils # Seg Neutrophils # Man Lymphocytes # (Manual) PT INR ABG pH ABG pO2 ABG HCO3 ABG O2 Saturation ABG Base Excess ABG Hemoglobin Oxyhemoglobin Sodium Potassium Chloride Carbon Dioxide BUN Creatinine Glucose POC Glucose 111 H 117 H Calcium Phosphorus AST ALT Ammonia Albumin Urine WBC (Auto) 02/27/22 02/27/22 02/27/22 04:19 04:35 05:27 WBC RBC Hgb Hct MCV MCH MCHC RDW Lymph % (Auto) Stanley % (Auto) Lymph # (Auto) Stanley # (Auto) Seg Neutrophils % Seg Neuts % (Manual) Lymphocytes % (Manual) Seg Neutrophils # Seg Neutrophils # Man Lymphocytes # (Manual) PT INR ABG pH ABG pO2 96.3 H ABG HCO3 34.9 H ABG O2 Saturation ABG Base Excess 8.1 H ABG Hemoglobin Oxyhemoglobin Sodium Potassium Chloride Carbon Dioxide 31 H BUN Creatinine 0.6 L Glucose 107 H POC Glucose 133 H Calcium 7.8 L Phosphorus AST ALT Ammonia Albumin Urine WBC (Auto) 02/27/22 02/27/22 02/28/22 11:15 23:35 03:38 WBC 13.3 H RBC 3.05 L Hgb 10.2 L Hct 30.7 L MCV 101 H MCH 33 H MCHC RDW 16.1 H Lymph % (Auto) Stanley % (Auto) Lymph # (Auto) Stanley # (Auto) Seg Neutrophils % Seg Neuts % (Manual) Lymphocytes % (Manual) Seg Neutrophils # Seg Neutrophils # Man Lymphocytes # (Manual) PT INR ABG pH ABG pO2 ABG HCO3 ABG O2 Saturation ABG Base Excess ABG Hemoglobin Oxyhemoglobin Sodium Potassium Chloride Carbon Dioxide BUN Creatinine Glucose POC Glucose 129 H 122 H Calcium Phosphorus AST ALT Ammonia Albumin Urine WBC (Auto) 02/28/22 02/28/22 02/28/22 04:50 05:30 09:30 WBC RBC Hgb Hct MCV MCH MCHC RDW Lymph % (Auto) Stanley % (Auto) Lymph # (Auto) Stanley # (Auto) Seg Neutrophils % Seg Neuts % (Manual) Lymphocytes % (Manual) Seg Neutrophils # Seg Neutrophils # Man Lymphocytes # (Manual) PT INR ABG pH 7.451 H 7.488 H ABG pO2 77.0 L ABG HCO3 37.1 H 34.6 H ABG O2 Saturation ABG Base Excess 11.5 H 10.1 H ABG Hemoglobin 10.1 L 10.0 L Oxyhemoglobin Sodium Potassium Chloride Carbon Dioxide BUN Creatinine Glucose POC Glucose 121 H Calcium Phosphorus AST ALT Ammonia Albumin Urine WBC (Auto) 02/28/22 02/28/22 03/01/22 11:36 23:07 04:27 WBC 12.5 H RBC 2.85 L Hgb 9.5 L Hct 28.6 L MCV 101 H MCH 33 H MCHC RDW 15.7 H Lymph % (Auto) Stanley % (Auto) Lymph # (Auto) Stanley # (Auto) Seg Neutrophils % Seg Neuts % (Manual) Lymphocytes % (Manual) Seg Neutrophils # Seg Neutrophils # Man Lymphocytes # (Manual) PT INR ABG pH ABG pO2 ABG HCO3 ABG O2 Saturation ABG Base Excess ABG Hemoglobin Oxyhemoglobin Sodium Potassium Chloride Carbon Dioxide BUN Creatinine Glucose POC Glucose 112 H 107 H Calcium Phosphorus AST ALT Ammonia Albumin Urine WBC (Auto) 03/01/22 03/01/22 03/01/22 04:27 05:05 11:29 WBC RBC Hgb Hct MCV MCH MCHC RDW Lymph % (Auto) Stanley % (Auto) Lymph # (Auto) Stanley # (Auto) Seg Neutrophils % Seg Neuts % (Manual) Lymphocytes % (Manual) Seg Neutrophils # Seg Neutrophils # Man Lymphocytes # (Manual) PT INR ABG pH ABG pO2 ABG HCO3 ABG O2 Saturation ABG Base Excess ABG Hemoglobin Oxyhemoglobin Sodium 147 H D Potassium Chloride Carbon Dioxide 34 H BUN Creatinine 0.6 L Glucose 128 H POC Glucose 119 H 121 H Calcium 7.9 L Phosphorus AST ALT Ammonia Albumin Urine WBC (Auto) 03/01/22 03/01/22 03/02/22 16:15 23:57 05:18 WBC RBC Hgb Hct MCV MCH MCHC RDW Lymph % (Auto) Stanley % (Auto) Lymph # (Auto) Stanley # (Auto) Seg Neutrophils % Seg Neuts % (Manual) Lymphocytes % (Manual) Seg Neutrophils # Seg Neutrophils # Man Lymphocytes # (Manual) PT INR ABG pH ABG pO2 110.5 H ABG HCO3 33.0 H ABG O2 Saturation ABG Base Excess 7.4 H ABG Hemoglobin 8.6 L Oxyhemoglobin Sodium Potassium Chloride Carbon Dioxide BUN Creatinine Glucose POC Glucose 134 H 140 H Calcium Phosphorus AST ALT Ammonia Albumin Urine WBC (Auto) 03/02/22 03/02/22 03/02/22 05:53 09:04 09:04 WBC 15.0 H RBC 3.00 L Hgb 9.7 L Hct 30.7 L MCV 102 H MCH MCHC RDW 16.6 H Lymph % (Auto) Stanley % (Auto) Lymph # (Auto) Stanley # (Auto) Seg Neutrophils % Seg Neuts % (Manual) Lymphocytes % (Manual) Seg Neutrophils # Seg Neutrophils # Man Lymphocytes # (Manual) PT INR ABG pH ABG pO2 ABG HCO3 ABG O2 Saturation ABG Base Excess ABG Hemoglobin Oxyhemoglobin Sodium Potassium Chloride Carbon Dioxide 31 H BUN Creatinine 0.6 L Glucose 157 H POC Glucose 158 H Calcium 7.9 L Phosphorus AST ALT Ammonia Albumin Urine WBC (Auto) 03/02/22 03/02/22 03/02/22 11:36 16:25 23:17 WBC RBC Hgb Hct MCV MCH MCHC RDW Lymph % (Auto) Stanley % (Auto) Lymph # (Auto) Stanley # (Auto) Seg Neutrophils % Seg Neuts % (Manual) Lymphocytes % (Manual) Seg Neutrophils # Seg Neutrophils # Man Lymphocytes # (Manual) PT INR ABG pH ABG pO2 ABG HCO3 ABG O2 Saturation ABG Base Excess ABG Hemoglobin Oxyhemoglobin Sodium Potassium Chloride Carbon Dioxide BUN Creatinine Glucose POC Glucose 160 H 132 H 157 H Calcium Phosphorus AST ALT Ammonia Albumin Urine WBC (Auto) 03/03/22 03/03/22 03/03/22 03:54 03:54 05:27 WBC 19.5 H RBC 2.79 L Hgb 9.0 L Hct 28.6 L MCV 102 H MCH MCHC RDW 16.2 H Lymph % (Auto) Stanley % (Auto) Lymph # (Auto) Stanley # (Auto) Seg Neutrophils % Seg Neuts % (Manual) 95.0 H Lymphocytes % (Manual) 3.0 L Seg Neutrophils # Seg Neutrophils # Man 18.5 H Lymphocytes # (Manual) 0.6 L PT INR ABG pH ABG pO2 ABG HCO3 ABG O2 Saturation ABG Base Excess ABG Hemoglobin Oxyhemoglobin Sodium Potassium Chloride Carbon Dioxide BUN Creatinine 0.6 L Glucose 130 H POC Glucose 149 H Calcium 8.1 L Phosphorus AST ALT Ammonia Albumin Urine WBC (Auto) 03/03/22 03/03/22 03/04/22 11:13 17:30 00:02 WBC RBC Hgb Hct MCV MCH MCHC RDW Lymph % (Auto) Stanley % (Auto) Lymph # (Auto) Stanley # (Auto) Seg Neutrophils % Seg Neuts % (Manual) Lymphocytes % (Manual) Seg Neutrophils # Seg Neutrophils # Man Lymphocytes # (Manual) PT INR ABG pH ABG pO2 ABG HCO3 ABG O2 Saturation ABG Base Excess ABG Hemoglobin Oxyhemoglobin Sodium Potassium Chloride Carbon Dioxide BUN Creatinine Glucose POC Glucose 139 H 138 H 157 H Calcium Phosphorus AST ALT Ammonia Albumin Urine WBC (Auto) 03/04/22 03/04/22 03/04/22 05:32 05:32 05:48 WBC 16.1 H RBC 2.81 L Hgb 9.3 L Hct 28.8 L MCV 102 H MCH 33 H MCHC RDW 16.7 H Lymph % (Auto) [place] % (Auto) Lymph # (Auto) [place] # (Auto) Seg Neutrophils % Seg Neuts % (Manual) Lymphocytes % (Manual) Seg Neutrophils # Seg Neutrophils # Man Lymphocytes # (Manual) PT INR ABG pH ABG pO2 ABG HCO3 ABG O2 Saturation ABG Base Excess ABG Hemoglobin Oxyhemoglobin Sodium Potassium Chloride Carbon Dioxide BUN Creatinine 0.7 L Glucose 135 H POC Glucose 145 H Calcium 8.3 L Phosphorus AST ALT Ammonia Albumin Urine WBC (Auto) 03/04/22 03/04/22 03/05/22 11:34 16:29 00:28 WBC RBC Hgb Hct MCV MCH MCHC RDW Lymph % (Auto) [place] % (Auto) Lymph # (Auto) [place] # (Auto) Seg Neutrophils % Seg Neuts % (Manual) Lymphocytes % (Manual) Seg Neutrophils # Seg Neutrophils # Man Lymphocytes # (Manual) PT INR ABG pH ABG pO2 ABG HCO3 ABG O2 Saturation ABG Base Excess ABG Hemoglobin Oxyhemoglobin Sodium Potassium Chloride Carbon Dioxide BUN Creatinine Glucose POC Glucose 148 H 140 H 116 H Calcium Phosphorus AST ALT Ammonia Albumin Urine WBC (Auto) 03/05/22 03/05/22 03/05/22 06:29 11:30 17:38 WBC RBC Hgb Hct MCV MCH MCHC RDW Lymph % (Auto) [place] % (Auto) Lymph # (Auto) [place] # (Auto) Seg Neutrophils % Seg Neuts % (Manual) Lymphocytes % (Manual) Seg Neutrophils # Seg Neutrophils # Man Lymphocytes # (Manual) PT INR ABG pH ABG pO2 ABG HCO3 ABG O2 Saturation ABG Base Excess ABG Hemoglobin Oxyhemoglobin Sodium Potassium Chloride Carbon Dioxide BUN Creatinine Glucose POC Glucose 114 H 114 H 117 H Calcium Phosphorus AST ALT Ammonia Albumin Urine WBC (Auto) 03/06/22 03/06/22 03/06/22 04:17 04:17 06:06 WBC 13.4 H RBC 2.85 L Hgb 9.4 L Hct 29.0 L MCV 102 H MCH 33 H MCHC RDW 16.4 H Lymph % (Auto) [place] % (Auto) Lymph # (Auto) [place] # (Auto) Seg Neutrophils % Seg Neuts % (Manual) Lymphocytes % (Manual) Seg Neutrophils # Seg Neutrophils # Man Lymphocytes # (Manual) PT INR ABG pH ABG pO2 ABG HCO3 ABG O2 Saturation ABG Base Excess ABG Hemoglobin Oxyhemoglobin Sodium Potassium 3.5 L Chloride Carbon Dioxide 31 H BUN Creatinine 0.6 L Glucose 101 H POC Glucose 106 H Calcium 7.7 L Phosphorus 2.00 L AST ALT Ammonia Albumin Urine WBC (Auto) 03/06/22 03/06/22 03/07/22 18:04 23:50 05:14 WBC RBC Hgb Hct MCV MCH MCHC RDW Lymph % (Auto) [place] % (Auto) Lymph # (Auto) [place] # (Auto) Seg Neutrophils % Seg Neuts % (Manual) Lymphocytes % (Manual) Seg Neutrophils # Seg Neutrophils # Man Lymphocytes # (Manual) PT INR ABG pH ABG pO2 ABG HCO3 ABG O2 Saturation ABG Base Excess ABG Hemoglobin Oxyhemoglobin Sodium Potassium Chloride Carbon Dioxide BUN Creatinine Glucose POC Glucose 108 H 115 H 116 H Calcium Phosphorus AST ALT Ammonia Albumin Urine WBC (Auto) 03/07/22 03/07/22 03/08/22 11:42 18:13 04:34 WBC RBC 2.86 L Hgb 9.2 L Hct 29.3 L MCV 103 H MCH MCHC 31 L RDW 16.9 H Lymph % (Auto) [place] % (Auto) Lymph # (Auto) [place] # (Auto) Seg Neutrophils % Seg Neuts % (Manual) Lymphocytes % (Manual) Seg Neutrophils # Seg Neutrophils # Man Lymphocytes # (Manual) PT INR ABG pH ABG pO2 ABG HCO3 ABG O2 Saturation ABG Base Excess ABG Hemoglobin Oxyhemoglobin Sodium Potassium Chloride Carbon Dioxide BUN Creatinine Glucose POC Glucose 123 H 109 H Calcium Phosphorus AST ALT Ammonia Albumin Urine WBC (Auto) 03/08/22 03/08/22 03/08/22 04:34 11:29 16:34 WBC RBC Hgb Hct MCV MCH MCHC RDW Lymph % (Auto) [place] % (Auto) Lymph # (Auto) [place] # (Auto) Seg Neutrophils % Seg Neuts % (Manual) Lymphocytes % (Manual) Seg Neutrophils # Seg Neutrophils # Man Lymphocytes # (Manual) PT INR ABG pH ABG pO2 ABG HCO3 ABG O2 Saturation ABG Base Excess ABG Hemoglobin Oxyhemoglobin Sodium Potassium Chloride Carbon Dioxide 33 H BUN Creatinine 0.5 L Glucose 109 H POC Glucose 117 H 109 H Calcium 7.6 L Phosphorus AST ALT Ammonia Albumin Urine WBC (Auto) 03/08/22 03/09/22 03/10/22 23:56 11:15 03:57 WBC RBC 2.99 L Hgb 9.9 L Hct 30.3 L MCV 102 H MCH 33 H MCHC RDW 16.8 H Lymph % (Auto) 13.3 L [place] % (Auto) 12.5 H Lymph # (Auto) [place] # (Auto) 1.3 H Seg Neutrophils % 72.4 H Seg Neuts % (Manual) Lymphocytes % (Manual) Seg Neutrophils # Seg Neutrophils # Man Lymphocytes # (Manual) PT INR ABG pH ABG pO2 ABG HCO3 ABG O2 Saturation ABG Base Excess ABG Hemoglobin Oxyhemoglobin Sodium Potassium Chloride Carbon Dioxide BUN Creatinine Glucose POC Glucose 106 H 110 H Calcium Phosphorus AST ALT Ammonia Albumin Urine WBC (Auto) 03/10/22 03/10/22 03/10/22 03:57 04:50 16:04 WBC RBC Hgb Hct MCV MCH MCHC RDW Lymph % (Auto) [place] % (Auto) Lymph # (Auto) [place] # (Auto) Seg Neutrophils % Seg Neuts % (Manual) Lymphocytes % (Manual) Seg Neutrophils # Seg Neutrophils # Man Lymphocytes # (Manual) PT INR ABG pH 7.465 H ABG pO2 ABG HCO3 31.9 H ABG O2 Saturation ABG Base Excess 7.3 H ABG Hemoglobin 11.0 L Oxyhemoglobin Sodium Potassium 3.4 L Chloride Carbon Dioxide BUN Creatinine 0.6 L Glucose POC Glucose 115 H Calcium 8.1 L Phosphorus AST ALT Ammonia Albumin 1.9 L Urine WBC (Auto) 03/11/22 03/11/22 03/11/22 04:02 04:02 04:02 WBC 12.0 H RBC 2.81 L Hgb 9.2 L Hct 29.1 L MCV 103 H MCH 33 H MCHC RDW 17.5 H Lymph % (Auto) [place] % (Auto) Lymph # (Auto) [place] # (Auto) Seg Neutrophils % Seg Neuts % (Manual) Lymphocytes % (Manual) Seg Neutrophils # Seg Neutrophils # Man Lymphocytes # (Manual) PT 16.2 H INR 1.16 H ABG pH ABG pO2 ABG HCO3 ABG O2 Saturation ABG Base Excess ABG Hemoglobin Oxyhemoglobin Sodium Potassium Chloride Carbon Dioxide BUN Creatinine 0.5 L Glucose 104 H POC Glucose Calcium 7.9 L Phosphorus AST ALT Ammonia Albumin Urine WBC (Auto) 03/11/22 03/11/22 03/11/22 05:10 11:07 16:32 WBC RBC Hgb Hct MCV MCH MCHC RDW Lymph % (Auto) [place] % (Auto) Lymph # (Auto) [place] # (Auto) Seg Neutrophils % Seg Neuts % (Manual) Lymphocytes % (Manual) Seg Neutrophils # Seg Neutrophils # Man Lymphocytes # (Manual) PT INR ABG pH 7.476 H ABG pO2 ABG HCO3 29.7 H ABG O2 Saturation ABG Base Excess 5.7 H ABG Hemoglobin 9.1 L Oxyhemoglobin Sodium Potassium Chloride Carbon Dioxide BUN Creatinine Glucose POC Glucose 108 H 121 H Calcium Phosphorus AST ALT Ammonia Albumin Urine WBC (Auto) 03/12/22 03/13/22 03/13/22 05:51 06:08 12:02 WBC RBC 2.73 L Hgb 9.0 L Hct 27.5 L MCV 101 H MCH 33 H MCHC RDW 17.2 H Lymph % (Auto) [place] % (Auto) Lymph # (Auto) [place] # (Auto) Seg Neutrophils % Seg Neuts % (Manual) Lymphocytes % (Manual) Seg Neutrophils # Seg Neutrophils # Man Lymphocytes # (Manual) PT INR ABG pH ABG pO2 ABG HCO3 ABG O2 Saturation ABG Base Excess ABG Hemoglobin Oxyhemoglobin Sodium Potassium Chloride Carbon Dioxide BUN Creatinine Glucose POC Glucose 116 H 111 H Calcium Phosphorus AST ALT Ammonia Albumin Urine WBC (Auto) 03/13/22 03/13/22 03/14/22 12:48 18:17 03:58 WBC RBC 2.97 L Hgb 9.7 L Hct 30.0 L MCV 101 H MCH 33 H MCHC RDW 16.7 H Lymph % (Auto) [place] % (Auto) Lymph # (Auto) [place] # (Auto) Seg Neutrophils % Seg Neuts % (Manual) Lymphocytes % (Manual) Seg Neutrophils # Seg Neutrophils # Man Lymphocytes # (Manual) PT INR ABG pH ABG pO2 ABG HCO3 ABG O2 Saturation ABG Base Excess ABG Hemoglobin Oxyhemoglobin Sodium Potassium Chloride Carbon Dioxide BUN Creatinine Glucose POC Glucose 125 H 114 H Calcium Phosphorus AST ALT Ammonia Albumin Urine WBC (Auto) 03/14/22 03/14/22 03/14/22 03:58 13:01 16:41 WBC RBC Hgb Hct MCV MCH MCHC RDW Lymph % (Auto) [place] % (Auto) Lymph # (Auto) [place] # (Auto) Seg Neutrophils % Seg Neuts % (Manual) Lymphocytes % (Manual) Seg Neutrophils # Seg Neutrophils # Man Lymphocytes # (Manual) PT INR ABG pH ABG pO2 ABG HCO3 ABG O2 Saturation ABG Base Excess ABG Hemoglobin Oxyhemoglobin Sodium Potassium Chloride Carbon Dioxide BUN Creatinine 0.6 L Glucose POC Glucose 118 H 109 H Calcium 8.2 L Phosphorus AST ALT Ammonia Albumin Urine WBC (Auto) 03/16/22 03/16/22 03/17/22 05:28 05:28 23:19 WBC RBC 2.81 L Hgb 9.1 L Hct 27.8 L MCV 99 H MCH MCHC RDW 17.0 H Lymph % (Auto) [place] % (Auto) Lymph # (Auto) [place] # (Auto) Seg Neutrophils % Seg Neuts % (Manual) Lymphocytes % (Manual) Seg Neutrophils # Seg Neutrophils # Man Lymphocytes # (Manual) PT INR ABG pH ABG pO2 ABG HCO3 ABG O2 Saturation ABG Base Excess ABG Hemoglobin Oxyhemoglobin Sodium Potassium Chloride Carbon Dioxide BUN Creatinine 0.5 L Glucose POC Glucose 113 H Calcium 8.2 L Phosphorus AST ALT Ammonia Albumin Urine WBC (Auto) 03/20/22 03/20/22 03/20/22 04:09 04:09 17:22 WBC RBC 2.90 L Hgb 9.6 L Hct 28.9 L MCV 100 H MCH 33 H MCHC RDW 17.4 H Lymph % (Auto) [place] % (Auto) Lymph # (Auto) [place] # (Auto) Seg Neutrophils % Seg Neuts % (Manual) Lymphocytes % (Manual) Seg Neutrophils # Seg Neutrophils # Man Lymphocytes # (Manual) PT INR ABG pH ABG pO2 ABG HCO3 ABG O2 Saturation ABG Base Excess ABG Hemoglobin Oxyhemoglobin Sodium Potassium Chloride Carbon Dioxide BUN Creatinine 0.6 L Glucose POC Glucose 110 H Calcium 8.2 L Phosphorus AST ALT Ammonia Albumin Urine WBC (Auto) 03/21/22 03/21/22 03/22/22 18:24 23:09 12:18 WBC RBC Hgb Hct MCV MCH MCHC RDW Lymph % (Auto) [place] % (Auto) Lymph # (Auto) [place] # (Auto) Seg Neutrophils % Seg Neuts % (Manual) Lymphocytes % (Manual) Seg Neutrophils # Seg Neutrophils # Man Lymphocytes # (Manual) PT INR ABG pH ABG pO2 ABG HCO3 ABG O2 Saturation ABG Base Excess ABG Hemoglobin Oxyhemoglobin Sodium Potassium Chloride Carbon Dioxide BUN Creatinine Glucose POC Glucose 110 H 107 H 106 H Calcium Phosphorus AST ALT Ammonia Albumin Urine WBC (Auto) 03/22/22 03/23/22 03/23/22 14:25 00:21 11:31 WBC RBC Hgb Hct MCV MCH MCHC RDW Lymph % (Auto) [place] % (Auto) Lymph # (Auto) [place] # (Auto) Seg Neutrophils % Seg Neuts % (Manual) Lymphocytes % (Manual) Seg Neutrophils # Seg Neutrophils # Man Lymphocytes # (Manual) PT INR ABG pH ABG pO2 150.5 H ABG HCO3 32.4 H ABG O2 Saturation ABG Base Excess 6.2 H ABG Hemoglobin 11.4 L Oxyhemoglobin Sodium Potassium Chloride Carbon Dioxide BUN Creatinine Glucose POC Glucose 107 H 110 H Calcium Phosphorus AST ALT Ammonia Albumin Urine WBC (Auto) 03/24/22 03/24/22 03/24/22 03:47 03:47 05:56 WBC RBC 3.18 L Hgb 10.1 L Hct 31.1 L MCV 98 H MCH MCHC RDW 17.4 H Lymph % (Auto) [place] % (Auto) Lymph # (Auto) [place] # (Auto) Seg Neutrophils % Seg Neuts % (Manual) Lymphocytes % (Manual) Seg Neutrophils # Seg Neutrophils # Man Lymphocytes # (Manual) PT INR ABG pH ABG pO2 ABG HCO3 ABG O2 Saturation ABG Base Excess ABG Hemoglobin Oxyhemoglobin Sodium Potassium Chloride Carbon Dioxide BUN Creatinine 0.5 L Glucose POC Glucose 107 H Calcium Phosphorus AST ALT Ammonia Albumin Urine WBC (Auto) 03/24/22 03/25/22 03/25/22 11:15 00:14 11:24 WBC RBC Hgb Hct MCV MCH MCHC RDW Lymph % (Auto) [place] % (Auto) Lymph # (Auto) [place] # (Auto) Seg Neutrophils % Seg Neuts % (Manual) Lymphocytes % (Manual) Seg Neutrophils # Seg Neutrophils # Man Lymphocytes # (Manual) PT INR ABG pH ABG pO2 ABG HCO3 ABG O2 Saturation ABG Base Excess ABG Hemoglobin Oxyhemoglobin Sodium Potassium Chloride Carbon Dioxide BUN Creatinine Glucose POC Glucose 126 H 109 H 110 H Calcium Phosphorus AST ALT Ammonia Albumin Urine WBC (Auto) 03/25/22 03/26/22 03/26/22 16:27 05:18 11:15 WBC RBC Hgb Hct MCV MCH MCHC RDW Lymph % (Auto) [place] % (Auto) Lymph # (Auto) [place] # (Auto) Seg Neutrophils % Seg Neuts % (Manual) Lymphocytes % (Manual) Seg Neutrophils # Seg Neutrophils # Man Lymphocytes # (Manual) PT INR ABG pH ABG pO2 ABG HCO3 ABG O2 Saturation ABG Base Excess ABG Hemoglobin Oxyhemoglobin Sodium Potassium Chloride Carbon Dioxide BUN Creatinine Glucose POC Glucose 123 H 114 H 135 H Calcium Phosphorus AST ALT Ammonia Albumin Urine WBC (Auto) 03/26/22 03/27/22 03/27/22 18:08 03:52 03:52 WBC 17.1 H RBC 2.94 L Hgb 9.2 L Hct 29.3 L MCV 100 H MCH MCHC 31 L RDW 17.5 H Lymph % (Auto) [place] % (Auto) Lymph # (Auto) [place] # (Auto) Seg Neutrophils % Seg Neuts % (Manual) Lymphocytes % (Manual) Seg Neutrophils # Seg Neutrophils # Man Lymphocytes # (Manual) PT INR ABG pH ABG pO2 ABG HCO3 ABG O2 Saturation ABG Base Excess ABG Hemoglobin Oxyhemoglobin Sodium 136 L Potassium Chloride Carbon Dioxide 32 H BUN 23 H Creatinine 0.6 L Glucose POC Glucose 130 H Calcium 8.2 L Phosphorus AST ALT Ammonia Albumin Urine WBC (Auto) 03/27/22 03/27/22 03/27/22 08:36 12:55 18:27 WBC RBC Hgb Hct MCV MCH MCHC RDW Lymph % (Auto) [place] % (Auto) Lymph # (Auto) [place] # (Auto) Seg Neutrophils % Seg Neuts % (Manual) Lymphocytes % (Manual) Seg Neutrophils # Seg Neutrophils # Man Lymphocytes # (Manual) PT INR ABG pH ABG pO2 ABG HCO3 ABG O2 Saturation ABG Base Excess ABG Hemoglobin Oxyhemoglobin Sodium Potassium Chloride Carbon Dioxide BUN Creatinine Glucose POC Glucose 137 H 114 H Calcium Phosphorus AST ALT Ammonia Albumin Urine WBC (Auto) > 182.0 H 03/28/22 03/28/22 03/28/22 01:00 04:06 04:52 WBC 14.2 H RBC 2.76 L Hgb 8.6 L Hct 26.8 L MCV 97 H MCH MCHC RDW 17.4 H Lymph % (Auto) 7.5 L [place] % (Auto) 10.5 H Lymph # (Auto) 1.1 L [place] # (Auto) 1.5 H Seg Neutrophils % 80.7 H Seg Neuts % (Manual) Lymphocytes % (Manual) Seg Neutrophils # 11.4 H Seg Neutrophils # Man Lymphocytes # (Manual) PT INR ABG pH ABG pO2 ABG HCO3 ABG O2 Saturation ABG Base Excess ABG Hemoglobin Oxyhemoglobin Sodium Potassium Chloride Carbon Dioxide BUN Creatinine Glucose POC Glucose 111 H 111 H Calcium Phosphorus AST ALT Ammonia Albumin Urine WBC (Auto) 03/28/22 03/28/22 03/29/22 12:09 23:23 04:22 WBC RBC 2.85 L Hgb 8.9 L Hct 27.8 L MCV 98 H MCH MCHC RDW 17.8 H Lymph % (Auto) [place] % (Auto) Lymph # (Auto) [place] # (Auto) Seg Neutrophils % Seg Neuts % (Manual) Lymphocytes % (Manual) Seg Neutrophils # Seg Neutrophils # Man Lymphocytes # (Manual) PT INR ABG pH ABG pO2 ABG HCO3 ABG O2 Saturation ABG Base Excess ABG Hemoglobin Oxyhemoglobin Sodium Potassium Chloride Carbon Dioxide BUN Creatinine Glucose POC Glucose 114 H 112 H Calcium Phosphorus AST ALT Ammonia Albumin Urine WBC (Auto) 03/29/22 03/29/22 03/29/22 05:56 12:22 23:39 WBC RBC Hgb Hct MCV MCH MCHC RDW Lymph % (Auto) [place] % (Auto) Lymph # (Auto) [place] # (Auto) Seg Neutrophils % Seg Neuts % (Manual) Lymphocytes % (Manual) Seg Neutrophils # Seg Neutrophils # Man Lymphocytes # (Manual) PT INR ABG pH ABG pO2 ABG HCO3 ABG O2 Saturation ABG Base Excess ABG Hemoglobin Oxyhemoglobin Sodium Potassium Chloride Carbon Dioxide BUN Creatinine Glucose POC Glucose 116 H 130 H 121 H Calcium Phosphorus AST ALT Ammonia Albumin Urine WBC (Auto) 03/30/22 03/30/22 03/30/22 11:52 16:04 23:05 WBC RBC Hgb Hct MCV MCH MCHC RDW Lymph % (Auto) [place] % (Auto) Lymph # (Auto) [place] # (Auto) Seg Neutrophils % Seg Neuts % (Manual) Lymphocytes % (Manual) Seg Neutrophils # Seg Neutrophils # Man Lymphocytes # (Manual) PT INR ABG pH ABG pO2 ABG HCO3 ABG O2 Saturation ABG Base Excess ABG Hemoglobin Oxyhemoglobin Sodium Potassium Chloride Carbon Dioxide BUN Creatinine Glucose POC Glucose 127 H 122 H 113 H Calcium Phosphorus AST ALT Ammonia Albumin Urine WBC (Auto) 03/31/22 03/31/22 03/31/22 03:56 03:56 10:59 WBC RBC 3.08 L Hgb 9.5 L Hct 30.1 L MCV 98 H MCH MCHC RDW 17.7 H Lymph % (Auto) [place] % (Auto) Lymph # (Auto) [place] # (Auto) Seg Neutrophils % Seg Neuts % (Manual) Lymphocytes % (Manual) Seg Neutrophils # Seg Neutrophils # Man Lymphocytes # (Manual) PT INR ABG pH ABG pO2 ABG HCO3 ABG O2 Saturation ABG Base Excess ABG Hemoglobin Oxyhemoglobin Sodium 135 L Potassium Chloride 97.4 L Carbon Dioxide 31 H BUN Creatinine 0.5 L Glucose 102 H POC Glucose 120 H Calcium Phosphorus AST ALT Ammonia Albumin Urine WBC (Auto) 04/01/22 04/01/22 04/01/22 00:09 06:08 11:03 WBC RBC Hgb Hct MCV MCH MCHC RDW Lymph % (Auto) [place] % (Auto) Lymph # (Auto) [place] # (Auto) Seg Neutrophils % Seg Neuts % (Manual) Lymphocytes % (Manual) Seg Neutrophils # Seg Neutrophils # Man Lymphocytes # (Manual) PT INR ABG pH ABG pO2 ABG HCO3 ABG O2 Saturation ABG Base Excess ABG Hemoglobin Oxyhemoglobin Sodium Potassium Chloride Carbon Dioxide BUN Creatinine Glucose POC Glucose 118 H 137 H 133 H Calcium Phosphorus AST ALT Ammonia Albumin Urine WBC (Auto) 04/01/22 04/02/22 04/02/22 17:36 05:49 13:25 WBC RBC Hgb Hct MCV MCH MCHC RDW Lymph % (Auto) [place] % (Auto) Lymph # (Auto) [place] # (Auto) Seg Neutrophils % Seg Neuts % (Manual) Lymphocytes % (Manual) Seg Neutrophils # Seg Neutrophils # Man Lymphocytes # (Manual) PT INR ABG pH ABG pO2 ABG HCO3 ABG O2 Saturation ABG Base Excess ABG Hemoglobin Oxyhemoglobin Sodium Potassium Chloride Carbon Dioxide BUN Creatinine Glucose POC Glucose 116 H 107 H 124 H Calcium Phosphorus AST ALT Ammonia Albumin Urine WBC (Auto) 04/02/22 04/03/22 04/03/22 17:06 04:04 04:04 WBC RBC Hgb Hct MCV 98 H MCH MCHC RDW 17.9 H Lymph % (Auto) [place] % (Auto) Lymph # (Auto) [place] # (Auto) Seg Neutrophils % Seg Neuts % (Manual) Lymphocytes % (Manual) Seg Neutrophils # Seg Neutrophils # Man Lymphocytes # (Manual) PT 15.2 H INR ABG pH ABG pO2 ABG HCO3 ABG O2 Saturation ABG Base Excess ABG Hemoglobin Oxyhemoglobin Sodium Potassium Chloride Carbon Dioxide BUN Creatinine Glucose POC Glucose 110 H Calcium Phosphorus AST ALT Ammonia Albumin Urine WBC (Auto) 04/03/22 04/03/22 04/03/22 04:04 11:40 17:21 WBC RBC Hgb Hct MCV MCH MCHC RDW Lymph % (Auto) [place] % (Auto) Lymph # (Auto) [place] # (Auto) Seg Neutrophils % Seg Neuts % (Manual) Lymphocytes % (Manual) Seg Neutrophils # Seg Neutrophils # Man Lymphocytes # (Manual) PT INR ABG pH ABG pO2 ABG HCO3 ABG O2 Saturation ABG Base Excess ABG Hemoglobin Oxyhemoglobin Sodium 136 L Potassium Chloride 97.1 L Carbon Dioxide BUN Creatinine 0.6 L Glucose POC Glucose 117 H 107 H Calcium Phosphorus 4.90 H AST ALT Ammonia Albumin Urine WBC (Auto) 04/03/22 04/04/22 04/04/22 23:50 11:39 17:51 WBC RBC Hgb Hct MCV MCH MCHC RDW Lymph % (Auto) [place] % (Auto) Lymph # (Auto) [place] # (Auto) Seg Neutrophils % Seg Neuts % (Manual) Lymphocytes % (Manual) Seg Neutrophils # Seg Neutrophils # Man Lymphocytes # (Manual) PT INR ABG pH ABG pO2 ABG HCO3 ABG O2 Saturation ABG Base Excess ABG Hemoglobin Oxyhemoglobin Sodium Potassium Chloride Carbon Dioxide BUN Creatinine Glucose POC Glucose 115 H 117 H 122 H Calcium Phosphorus AST ALT Ammonia Albumin Urine WBC (Auto) 04/04/22 04/05/22 04/05/22 23:16 05:48 21:28 WBC RBC Hgb Hct MCV MCH MCHC RDW Lymph % (Auto) [place] % (Auto) Lymph # (Auto) [place] # (Auto) Seg Neutrophils % Seg Neuts % (Manual) Lymphocytes % (Manual) Seg Neutrophils # Seg Neutrophils # Man Lymphocytes # (Manual) PT INR ABG pH ABG pO2 ABG HCO3 ABG O2 Saturation ABG Base Excess ABG Hemoglobin Oxyhemoglobin Sodium Potassium Chloride Carbon Dioxide BUN Creatinine Glucose POC Glucose 117 H 116 H 116 H Calcium Phosphorus AST ALT Ammonia Albumin Urine WBC (Auto) 04/06/22 04/06/22 04/07/22 11:08 22:02 03:55 WBC 11.2 H RBC 3.55 L Hgb 10.8 L Hct 34.2 L MCV 97 H MCH MCHC 31 L RDW 18.6 H Lymph % (Auto) [place] % (Auto) Lymph # (Auto) [place] # (Auto) Seg Neutrophils % Seg Neuts % (Manual) Lymphocytes % (Manual) Seg Neutrophils # Seg Neutrophils # Man Lymphocytes # (Manual) PT INR ABG pH ABG pO2 ABG HCO3 ABG O2 Saturation ABG Base Excess ABG Hemoglobin Oxyhemoglobin Sodium Potassium Chloride Carbon Dioxide BUN Creatinine Glucose POC Glucose 115 H 120 H Calcium Phosphorus AST ALT Ammonia Albumin Urine WBC (Auto) 04/07/22 04/07/22 04/07/22 03:55 03:55 11:14 WBC RBC Hgb Hct MCV MCH MCHC RDW Lymph % (Auto) [place] % (Auto) Lymph # (Auto) [place] # (Auto) Seg Neutrophils % Seg Neuts % (Manual) Lymphocytes % (Manual) Seg Neutrophils # Seg Neutrophils # Man Lymphocytes # (Manual) PT 15.0 H INR ABG pH ABG pO2 ABG HCO3 ABG O2 Saturation ABG Base Excess ABG Hemoglobin Oxyhemoglobin Sodium Potassium Chloride 97.7 L Carbon Dioxide 31 H BUN 21 H Creatinine 0.6 L Glucose POC Glucose 106 H Calcium Phosphorus AST ALT Ammonia Albumin Urine WBC (Auto)
--- NOTE | 2022-04-07 13:41 | Progress Note ---
<CODYCARSON ZiaRadha - Last Filed: 04/07/22 18:29> Assessment and Plan Assessment and plan: This is a 51-year-old male with HTN, seizure disorder, Down syndrome, HLD, partial blindness admitted with aspiration pneumonia, probable bronchogenic carcinoma, acute hypoxic respiratory failure and acute encephalopathy Neuro: h/o seizure disorder, Down syndrome, partial blindness -Reorientation as needed -Maintain sleep-wake cycle -aspiration/seizure precautions -As needed analgesia -CT head showed no acute abnormality -Continue Keppra Cardiac: h/o HTN, HLD -Cardiology consulted, appreciate recommendations -Blood pressure monitoring per protocol -PO Midodrine Respiratory: Acute hypoxic respiratory failure, ruled out bronchogenic carcinoma -CCM consulted, appreciate recommendations -Intubated on 02/24 with a 8.0 at 23 at the lips but extubated 02/28 -reintubated 02/28 with 8.0 OETT -Vent settings: AC rate 14, TV 360, PEEP 6, FO2 30% -See RT notes for titration -VAP bundle -SPO2 monitoring per protocol -02/18 CTA chest showed no evidence of pulmonary embolism, suspected bronchogenic carcinoma with associated obstruction of the right lower lobe proximal bronchus segment, 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 adenopathy and suspected to left lower lobe metastatic nodule -02/26 Bronch->mucous, no lesion noted -02/27 CT chest read: right mainstem bronchus patent with small amount of interval bronchial fluid which may be mucus (this may account for the appearance of the prior CTA chest fluid-filled airway rather than entering bronchial lesion), previously seen complete left lower lobe since related to bronchial occlusion has significantly improved, there is persistent compressive atelectasis in the right lower lung secondary to the pleural effusion, bilateral pleural effusions, right lung pneumonia -CT neck showed no acute changes -s/p steroids GI: Moderate protein calorie malnutrition -24 hours -390 mL -PPI -NTR consulted for tube feedings -BR: Senokot S : NAD -Monitor intake and output -Renally dose medications -Avoid nephrotoxic medications -Trend BMP ID: UTI, Aspiration PNA (resolved), sacral wound (POA) -UA with pyuria, mod LE with leukocytosis -WOCN consulted -Dressing changes per nursing -S/p Rocephin for 5 days (02/19-02/24), (03/28-03/30) -Monitor WBC and temperature curve Endo: NAD -Avoid hypoglycemia -Accu-Cheks every 6 -Avoid hypoglycemia Heme: NAD -Trend CBC -Transfuse hemoglobin less than 7 -SCDs to BLE while in bed Dispo: -Awaiting guardianship for trach/peg -trach /peg scheduled for 04/07 -LTACH post trach/peg The high probability of a clinically significant, sudden or life threatening deterioration of the [resp] system(s) required my full and direct attention, intervention and personal management. The aggregate critical care time was [60] minutes. This time is in addition to time spent performing reported procedures but includes the following: [x] Data Review and interpretation [x] Patient assessment and monitoring of vital signs [x] Documentation [x] Medication orders and management Disposition Plan: icu Total Time Spent with Patient (Minutes): 60 History Interval history: This is a 51-year-old male with HTN, seizure disorder, Down syndrome, HLD, and partial blindness was a resident of the [facility] who presented to emergency department on 02/19 for evaluation of change in mental status. Of note patient was recently discharged a few weeks ago for a seizure disorder and UTI. Upon arrival to the emergency department patient was noted to be hypoxic with SPO2 in the 80s on a nonrebreather with difficulty breathing. Work-up in the emergency department revealed CXR which showed elevation of the right hemidiaphragm, right lower lung atelectasis and effusion with mild increased pulmonary vascularity but no pneumothorax and CT of the head did not show any acute abnormality. 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 Patient was admitted to the hospitalist service to the floor. Hospital course to date: 02/19/2022. Consult pulmonary for further evaluation and possible bronchoscopy. I suspect patient has component of aspiration pneumonia as well. We will obtain a speech therapy evaluation for swallowing and start empiric antibiotics. Continue O2 supplementation to maintain sats greater than 92%. 02/20/2022. Pulmonary feels that the abnormality seen on CT scan is highly unlikely for a mass given negative chest x-ray 1 month ago and no risk factors. Etiology is likely secondary to aspiration from possibly a foreign body most likely food with atelectasis of the right lower lobe. Bronchoscopy is needed in the case to evaluate to see if lung mass is there vs foreign body, but at this time not able to do because no identifiable person that is able to give consent. Continue aspiration precautions and continue speech therapy evaluation for swallowing. Keep n.p.o. for now 02/21/2022. Patient remains NPO. Consider DHT placement. Follow-up with speech therapy evaluation. Pulmonology to consider bronchoscopy if able to obtain consent. Continue IV antibiotics for aspiration pneumonia 02/22/2022. Patient remains NPO. Consider DHT placement. Follow-up with speech therapy evaluation. Pulmonology to consider bronchoscopy if able to obtain consent. Continue IV antibiotics for aspiration pneumonia 02/23/2022. DHT placed yesterday. TF initiated for nutritional support. Patient currently with strict NPO. Aspiration precautions. Pulmonology to consider bronchoscopy if able to obtain consent. Continue IV antibiotics for aspiration pneumonia 02/24: Patient was transferred to the ICU for further monitoring. This morning patient remained on high flow nasal cannula on 40 L/100% and despite repeated nasotracheal suctioning patient SPO2 remained in the 80s. Patient was placed on nonrebreather and SPO2 increased to upper 80s. Patient was subsequently intubated by anesthesia. Started on sedation. 02/25: Patient remains sedated on fentanyl, potassium and magnesium repleted. IV fluids and amlodipine discontinued. Possible bronchoscopy tomorrow. 02/26: Patient had a bronchoscopy today which showed mucus and no endobronchial lesions or masses. FiO2 was increased to 100 during and postprocedure weaning as tolerated. Repeat CXR is much improved after bronc. Given 1 L LR bolus due to hypotension. No acute events reported overnight. 02/27: Decreased PEEP, will repeat CT of chest. no acute changes overnight. 02/28: Patient was extubated today however had to be be intubated shortly after. Patient ETT looked mispositioned on x-ray and Dr. Alonzo did do a bedside bronc. Patient was briefly hypotensive and on Levophed postintubation however Levophed was quickly titrated off and patient did not require central line. No acute events reported overnight. Will obtain CT neck d/t difficulty intubating. Ethic committee consulted. 03/01: Overnight patient was hypotensive and started on IVF. Patient started on steroids as no air leak noted and hypotension and given 2 L LR 03/02: Overnight patient received bolus per RN report, no orders seen. Continue supportive care. 03/04: MAIDA overnight. Remains stable on the vent. [facility]. Continue current supportive measures 03/05: MAIDA overnight. [facility]. Midodrine held yesterday, HR improved. Continue current supportive measures. Daily PSV trial as tolerated per [facility] 03/06: Remains stable on the vent. Continue current supportive measures, daily PSV trial per [facility]. Awaiting on desicion for possible trach and PEG. 03/07: MAIDA overnight, remains stable. Continue daily PSV trial as tolerated. Awaiting on desicion for possible trach and PEG. 03/08: Patient failed PSV trial this am due to tachycardia and increase RR. Continue supportive measures and daily PSV trial as tolerated. Possible discussion with ethics and [facility] on Thursday in regards to medical necessity, may need to consider two physician consent if no one is able to claim responsibility for this patient. 03/09: MAIDA overnight. Continue current supportive measures and daily PSV trail as tolerated. Awaiting on decision for possible trach and PEG, discussion with Ethics possibly tomorrow per [facility]. 03/10: no acute events overnight, PSV today. replete potassium. 03/11: No acute events reported overnight, patient failed PSV yesterday and will repeat today. Hospital to start guardianship process. 03/12: No acute events overnight. PSV today 03/13: Patient given 500ml normal saline and started on midodrine for hypotension. No acute events reported overnight. Failed pressure support again this morning. 03/14: No acute events reported overnight, patient blood pressure seems better therefore midodrine discontinued. RT placed on CPAP need lasted for couple hours. Will remove summers 03/15: Midodrine was restarted yesterday evening for hypotension, Summers catheter not removed due to sacral ulcer and history of retention. Unable to crush Flomax and patient will not tolerate doxazosin given hypotension. Given LR bolus this morning. If blood pressure continues to be borderline after bolus, we will adjust management as needed. CPAP as tolerated 03/16: No acute events reported overnight, patient placed on CPAP trial this morning which he failed. 03/17: RT attempted PSV which he failed again today. No acute events reported overnight. 03/18: Awaiting ethic committee's decision on Trach/PEG. Patient tolerated PSV trial for over 3 hrs today, continue daily PSV trial as tolerated. 03/19: MAIDA overnight. Continue current supportive measures. Daily PSV trial as tolerated. Awaiting on desicion for possible trach and PEG. 03/20: MAIDA overnight. Daily PSV trial as tolerated. Awaiting decision on guardianship for trach and PEG. 03/21: Remains stable, condition unchanged. Continue supportive measures and daily PSV trial as tolerated. 03/22: MAIDA overnight. Continue current supportive measures. Daily PSV trial as tolerated 03/23: MAIDA overnight, continue supportive measures and daily PSV trial as tolerated. 03/24: Condition unchanged. Still waiting on Ethics' decision for possible trach/Peg. Continue supportive measures and daily PSV trial as tolerated. 03/25: PSV attempt today, does open eyes to stimuli, no acute events overnight. 03/26: Yesterday evening Summers catheter was removed as he was due to be changed, condom cath placed. Overnight patient had good urine output and per RN repeated bladder scans showed less than 200 mL of urine. We will continue to monitor urine output. RT to attempt PSV 03/27: Patient has leukocytosis today and UA has pyuria with moderate LE therefore he will be started on antibiotics. 03/28: Leukocytosis improving. No acute events reported overnight. 03/29: No acute events overnight. Continue supportive care. 03/30: no acute events overnight, PSV again. 03/31: Condition unchanged, remains on low vent setting. Possible Ethics meeting today and tomorrow for possible guardianship. Will consult General Surgery for possible trach and Peg once guardianship decision has been made. Continue supp ortive measures and daily PSV trial as tolerated 04/01: Remains stable on the vent. Court hearing today, awaiting decision on appointed guardian by the the [facility]. Continue current supportive measures and daily PSV trial as tolerated 04/02: MAIDA overnight. Stable on the vent. Awaiting on desicion on appointed guardian. Continue current supportive measures and daily PSV trial as tolerated. 04/03: Awaiting on desicion on appointed guardian. Continue current supportive measures and daily PSV trial as tolerated 04/04: Guardian appointed by the [facility]. Plan for possible trach and Peg by early next week. Continue current supportive measures and daily PSV trial as tolerated 04/05: Continue current supportive measures and daily PSV trial as tolerated. Plan for possible trach and Peg next week. 04/06: MAIDA overnight. Possible trach and Peg next week. Continue current supportive measures and daily PSV trial as tolerated. 04/07: Patient will be taken to the OR today for trach/PEG. No acute events reported overnight. Hospitalist Physical - Constitutional Vitals: Temp Pulse Resp BP Pulse Ox 98.2 F 89 18 118/73 95 04/07/22 11:41 04/07/22 13:05 04/07/22 13:05 04/07/22 13:00 04/07/22 13:00 General appearance: Present: no acute distress, well-nourished - EENT Eyes: Present: PERRL, EOM intact ENT: poor dentition - Neck Neck: Present: normal ROM - Respiratory Respiratory effort: normal Respiratory: bilateral: rhonchi - Cardiovascular Rhythm: regular Heart Sounds: Present: S1 & S2. Absent: systolic murmur, diastolic murmur - Extremities Extremities: no ischemia, pulses intact, pulses symmetrical, No edema, normal temperature, normal color Peripheral Pulses: within normal limits - Abdominal General gastrointestinal: soft, non-tender, non-distended, normal bowel sounds - Integumentary Integumentary: Present: warm, dry - Psychiatric Psychiatric: other - Neurologic Neurologic: moves all extremities - Allied Health Allied health notes reviewed: nursing, RT, social work HEART Score - HEART Score Troponin: Troponin T < 0.010 ng/mL (0.00-0.029) 02/18/22 21:02 Results - Labs CBC & Chem 7: 04/07/22 03:55 04/07/22 03:55 Labs: Laboratory Last Values WBC 11.2 K/mm3 (4.5-11.0) H 04/07/22 03:55 RBC 3.55 M/mm3 (3.65-5.03) L 04/07/22 03:55 Hgb 10.8 gm/dl (11.8-15.2) L 04/07/22 03:55 Hct 34.2 % (35.5-45.6) L 04/07/22 03:55 MCV 97 fl (84-94) H 04/07/22 03:55 MCH 30 pg (28-32) 04/07/22 03:55 MCHC 31 % (32-34) L 04/07/22 03:55 RDW 18.6 % (13.2-15.2) H 04/07/22 03:55 Plt Count 352 K/mm3 (140-440) 04/07/22 03:55 Lymph % (Auto) 7.5 % (13.4-35.0) L 03/28/22 04:06 [place] % (Auto) 10.5 % (0.0-7.3) H 03/28/22 04:06 Eos % (Auto) 0.9 % (0.0-4.3) 03/28/22 04:06 Baso % (Auto) 0.4 % (0.0-1.8) 03/28/22 04:06 Lymph # (Auto) 1.1 K/mm3 (1.2-5.4) L 03/28/22 04:06 [place] # (Auto) 1.5 K/mm3 (0.0-0.8) H 03/28/22 04:06 Eos # (Auto) 0.1 K/mm3 (0.0-0.4) 03/28/22 04:06 Baso # (Auto) 0.1 K/mm3 (0.0-0.1) 03/28/22 04:06 Add Manual Diff Complete 03/03/22 03:54 Total Counted 100 03/03/22 03:54 Seg Neutrophils % 80.7 % (40.0-70.0) H 03/28/22 04:06 Seg Neuts % (Manual) 95.0 % (40.0-70.0) H 03/03/22 03:54 Band Neutrophils % 0 % 03/03/22 03:54 Lymphocytes % (Manual) 3.0 % (13.4-35.0) L 03/03/22 03:54 Reactive Lymphs % (Man) 0 % 03/03/22 03:54 Monocytes % (Manual) 2.0 % (0.0-7.3) 03/03/22 03:54 Eosinophils % (Manual) 0 % (0.0-4.3) 03/03/22 03:54 Basophils % (Manual) 0 % (0.0-1.8) 03/03/22 03:54 Metamyelocytes % 0 % 03/03/22 03:54 Myelocytes % 0 % 03/03/22 03:54 Promyelocytes % 0 % 03/03/22 03:54 Blast Cells % 0 % 03/03/22 03:54 Nucleated RBC % Not Reportable 03/03/22 03:54 Seg Neutrophils # 11.4 K/mm3 (1.8-7.7) H 03/28/22 04:06 Seg Neutrophils # Man 18.5 K/mm3 (1.8-7.7) H 03/03/22 03:54 Band Neutrophils # 0.0 K/mm3 03/03/22 03:54 Lymphocytes # (Manual) 0.6 K/mm3 (1.2-5.4) L 03/03/22 03:54 Abs React Lymphs (Man) 0.0 K/mm3 03/03/22 03:54 Monocytes # (Manual) 0.4 K/mm3 (0.0-0.8) 03/03/22 03:54 Eosinophils # (Manual) 0.0 K/mm3 (0.0-0.4) 03/03/22 03:54 Basophils # (Manual) 0.0 K/mm3 (0.0-0.1) 03/03/22 03:54 Metamyelocytes # 0.0 K/mm3 03/03/22 03:54 Myelocytes # 0.0 K/mm3 03/03/22 03:54 Promyelocytes # 0.0 K/mm3 03/03/22 03:54 Blast Cells # 0.0 K/mm3 03/03/22 03:54 WBC Morphology Not Reportable 03/03/22 03:54 Hypersegmented Neuts Not Reportable 03/03/22 03:54 Hyposegmented Neuts Not Reportable 03/03/22 03:54 Hypogranular Neuts Not Reportable 03/03/22 03:54 Smudge Cells Not Reportable 03/03/22 03:54 Toxic Granulation Not Reportable 03/03/22 03:54 Toxic Vacuolation Not Reportable 03/03/22 03:54 Dohle Bodies Not Reportable 03/03/22 03:54 Pelger-Huet Anomaly Not Reportable 03/03/22 03:54 Lakshmi Rods Not Reportable 03/03/22 03:54 Platelet Estimate Consistent w auto 03/03/22 03:54 Clumped Platelets Not Reportable 03/03/22 03:54 Plt Clumps, EDTA Not Reportable 03/03/22 03:54 Large Platelets Not Reportable 03/03/22 03:54 Giant Platelets Not Reportable 03/03/22 03:54 Platelet Satelliting Not Reportable 03/03/22 03:54 Plt Morphology Comment Not Reportable 03/03/22 03:54 RBC Morphology Not Reportable 03/03/22 03:54 Dimorphic RBCs Not Reportable 03/03/22 03:54 Polychromasia Not Reportable 03/03/22 03:54 Hypochromasia Not Reportable 03/03/22 03:54 Poikilocytosis Not Reportable 03/03/22 03:54 Anisocytosis 1+ 03/03/22 03:54 Microcytosis Not Reportable 03/03/22 03:54 Macrocytosis Not Reportable 03/03/22 03:54 Spherocytes Not Reportable 03/03/22 03:54 Pappenheimer Bodies Not Reportable 03/03/22 03:54 Sickle Cells Not Reportable 03/03/22 03:54 Target Cells Not Reportable 03/03/22 03:54 Tear Drop Cells Not Reportable 03/03/22 03:54 Ovalocytes Not Reportable 03/03/22 03:54 Helmet Cells Not Reportable 03/03/22 03:54 [place] Bodies Not Reportable 03/03/22 03:54 [place] Rings Not Reportable 03/03/22 03:54 [place] Cells Not Reportable 03/03/22 03:54 Bite Cells Not Reportable 03/03/22 03:54 Crenated Cell Not Reportable 03/03/22 03:54 Elliptocytes Not Reportable 03/03/22 03:54 Acanthocytes (Spur) Not Reportable 03/03/22 03:54 Rouleaux Not Reportable 03/03/22 03:54 Hemoglobin C Crystals Not Reportable 03/03/22 03:54 Schistocytes Not Reportable 03/03/22 03:54 Malaria parasites Not Reportable 03/03/22 03:54 Cash Bodies Not Reportable 03/03/22 03:54 Hem Pathologist Commnt No 03/03/22 03:54 PT 15.0 Sec. (12.2-14.9) H 04/07/22 03:55 INR 1.06 (0.87-1.13) 04/07/22 03:55 APTT 33.4 Sec. (24.2-36.6) 04/06/22 08:47 ABG pH 7.392 pH Units (7.350-7.450) 03/22/22 14:25 ABG pCO2 54.4 mm Hg 03/22/22 14:25 ABG pO2 150.5 mm Hg (80.0-90.0) H 03/22/22 14:25 ABG HCO3 32.4 mmol/L (20.0-26.0) H 03/22/22 14:25 ABG O2 Saturation 98.8 % (95.0-99.0) 03/22/22 14:25 ABG O2 Content 15.8 (0.0-44) 03/22/22 14:25 ABG Base Excess 6.2 mmol/L (-2.0-3.0) H 03/22/22 14:25 ABG Hemoglobin 11.4 gm/dl (14.0-18.0) L 03/22/22 14:25 ABG Carboxyhemoglobin 1.6 % (0.0-5.0) 03/22/22 14:25 ABG Methemoglobin 0.6 % (0.0-1.5) 03/22/22 14:25 Oxyhemoglobin 96.6 % (95.0-99.0) 03/22/22 14:25 FiO2 30 % 03/22/22 14:25 Sodium 137 mmol/L (137-145) 04/07/22 03:55 Potassium 5.0 mmol/L (3.6-5.0) 04/07/22 03:55 Chloride 97.7 mmol/L (98-107) L 04/07/22 03:55 Carbon Dioxide 31 mmol/L (22-30) H 04/07/22 03:55 Anion Gap 13 mmol/L 04/07/22 03:55 BUN 21 mg/dL (9-20) H 04/07/22 03:55 Creatinine 0.6 mg/dL (0.8-1.3) L 04/07/22 03:55 Estimated GFR > 60 ml/min 04/07/22 03:55 BUN/Creatinine Ratio 35 % 04/07/22 03:55 Glucose 94 mg/dL (75-100) 04/07/22 03:55 POC Glucose 106 mg/dL (70-105) H 04/07/22 11:14 Lactic Acid 1.20 mmol/L (0.7-2.0) 02/18/22 21:02 Calcium 8.9 mg/dL (8.4-10.2) 04/07/22 03:55 Phosphorus 4.00 mg/dL (2.5-4.5) 04/07/22 03:55 Magnesium 1.90 mg/dL (1.7-2.3) 04/07/22 03:55 Total Bilirubin 0.30 mg/dL (0.1-1.2) 03/10/22 03:57 AST 17 units/L (5-40) 03/10/22 03:57 ALT 18 units/L (7-56) 03/10/22 03:57 Alkaline Phosphatase 89 units/L (35-129) 03/10/22 03:57 Ammonia 14.0 umol/L (25-60) L 02/18/22 23:22 Troponin T < 0.010 ng/mL (0.00-0.029) 02/18/22 21:02 Total Protein 6.6 g/dL (6.3-8.2) 03/10/22 03:57 Albumin 1.9 g/dL (3.9-5) L 03/10/22 03:57 Albumin/Globulin Ratio 0.4 % 03/10/22 03:57 Urine Color Yellow (Yellow) 03/27/22 08:36 Urine Turbidity Cloudy (Clear) 03/27/22 08:36 Urine pH 7.0 (5.0-7.0) 02/18/22 Unknown Ur Specific [place] 1.015 (1.003-1.030) 02/18/22 Unknown Specific [place] (Man) 1.020 (1.003-1.030) 03/27/22 08:36 Urine Protein <15 mg/dl mg/dL (Negative) 02/18/22 Unknown Ur Protein (Man) 1+ mg/dL (Negative) 03/27/22 08:36 Urine Glucose (UA) Negative mg/dL (Negative) 02/18/22 Unknown Urine Ketones Negative mg/dL (Negative) 02/18/22 Unknown Ur Ketones (Man) Negative (Negative) 03/27/22 08:36 Urine Blood Trace (Negative) 02/18/22 Unknown Urine Nitrite Negative (Negative) 02/18/22 Unknown Ur Nitrite (Man) Negative (Negative) 03/27/22 08:36 Ur Reducing Substances Not Reportable 03/27/22 08:36 Urine Bilirubin Negative (Negative) 02/18/22 Unknown Urine Bilirubin (Man) Negative (Negative) 03/27/22 08:36 Urine Ictotest Not Reportable 03/27/22 08:36 Urine Urobilinogen < 2.0 mg/dL (<2.0) 02/18/22 Unknown Ur Leukocyte Esterase Negative (Negative) 02/18/22 Unknown Leukocyte Esterase (Man) Moderate (Negative) 03/27/22 08:36 Urine WBC (Auto) > 182.0 /HPF (0.0-6.0) H 03/27/22 08:36 Urine RBC (Auto) 9.0 /HPF (0.0-6.0) 03/27/22 08:36 U Epithel Cells (Auto) < 1.0 /HPF (0-13.0) 03/27/22 08:36 Urine RBC (Manual) 1+ (Negative) 03/27/22 08:36 Urine Mucus Few /HPF 03/27/22 08:36 Urine Yeast (Budding) 2+ /HPF 03/27/22 08:36 Urine Opiates Screen Negative 02/18/22 Unknown Urine Methadone Screen Negative 02/18/22 Unknown Ur Barbiturates Screen Negative 02/18/22 Unknown Ur Phencyclidine Scrn Negative 02/18/22 Unknown Ur Amphetamines Screen Negative 02/18/22 Unknown U Benzodiazepines Scrn Negative 02/18/22 Unknown Urine Cocaine Screen Negative 02/18/22 Unknown U Marijuana (THC) Screen Negative 02/18/22 Unknown Drugs of Abuse Note Disclamer 02/18/22 Unknown Plasma/Serum Alcohol < 0.01 % (0-0.07) 02/18/22 21:02 Summers/IV: Voiding Method Indwelling Catheter Active Medications - Current Medications Current Medications: Generic Name Dose Route Start Last Admin Trade Name Freq PRN Reason Stop Dose Admin Acetaminophen 650 mg 03/03/22 09:00 Acetaminophen 325 Mg/10.15 Ml Oral Liqd Unit Dose FEEDTUBE Q4H PRN Pain, Mild (1-3); TEMP > 100.4 Albuterol 2.5 mg 03/12/22 20:00 04/07/22 13:05 Albuterol 2.5 Mg/3 Ml Nebu IH 2.5 mg Q6HRT LAZARUS Administration Famotidine 20 mg 02/25/22 10:00 04/07/22 09:14 Famotidine 20 Mg Tab FEEDTUBE 20 mg BID LAZARUS Administration Heparin Sodium (Porcine) 5,000 unit 02/19/22 06:00 04/07/22 13:26 Heparin 5,000 Unit/1 Ml Vial SUB-Q Not Given Q8HR LAZARUS Levetiracetam 500 mg 02/25/22 22:00 04/07/22 09:14 Levetiracetam 500 Mg/5 Ml Oral Liqd FEEDTUBE 500 mg BID LAZARUS Administration Levothyroxine Sodium 25 mcg 02/26/22 06:00 04/07/22 06:40 Levothyroxine 25 Mcg Tab FEEDTUBE 25 mcg QAM@0600 LAZARUS Administration Magnesium Hydroxide 30 ml 02/19/22 02:02 04/03/22 04:14 Magnesium Hydroxide (Mom) Oral Liqd Udc PO 30 ml Q4H PRN Administration Constipation Midodrine 5 mg 04/03/22 12:00 04/07/22 11:46 Midodrine 5 Mg Tab FEEDTUBE 5 mg TID@0800,1200,1600 LAZARUS Administration Multi-Ingred Cream/Lotion/Oil/Oint 1 applic 02/24/22 15:05 Mineral Oil/Petrolatum, White Ophth Oint 3.5 Gm OU Q4HR PRN Dry Eye(s) Ondansetron HCl 4 mg 02/19/22 02:02 Ondansetron 4 Mg/2 Ml Inj IV Q8H PRN Nausea And Vomiting Pravastatin Sodium 40 mg 02/25/22 22:00 04/06/22 23:19 Pravastatin 40 Mg Tab FEEDTUBE 40 mg QHS LAZARUS Administration Senna/Docusate Sodium 1 tab 02/24/22 22:00 04/07/22 09:14 Sennosides/Docusate Sodium 8.6/50 Mg Tab FEEDTUBE 1 tab BID LAZARUS Administration Sodium Chloride 10 ml 02/19/22 10:00 04/07/22 09:14 Sodium Chloride 0.9% 10 Ml Flush Syringe IV 10 ml BID LAZARUS Administration Sodium Chloride 10 ml 02/19/22 02:02 03/03/22 14:21 Sodium Chloride 0.9% 10 Ml Flush Syringe IV 10 ml PRN PRN Administration LINE FLUSH Nutrition/Malnutrition Assess - Dietary Evaluation Nutrition/Malnutrition Findings: Nutrition Notes Start: 02/19/22 14:29 Freq: Status: Active Protocol: Document 04/04/22 13:07 IVAN (Rec: 04/04/22 13:10 IVAN [email or web address]) Nutrition Notes Initial or Follow up Brief Note Current Diet TF - Promote at 65ml/hr Subjective/Other Information Observed Promote infusing at goal rate of 65ml/hr. Pt tolerating TF at goal rate. BM documented on 04/01 and 04/03 . Pt remains on vent support. Percent of energy/protein needs met: 98% energy 100% pro Nutrition Intervention Follow-Up By: 04/11/22 Additional Comments F/U: stable TF, vent status, trach/PEG placement, BM <JOAQUIN ROBIN - Last Filed: 04/07/22 19:21> Assessment and Plan Assessment and plan: I saw and evaluated the patient. I agree with the findings and the plan of care as documented in the Nurse Practitioner's~note, with the following corrections and additions. Hospitalist Physical - Constitutional Vitals: Temp Pulse Resp BP Pulse Ox 97.9 F 94 H 19 100/60 97 04/07/22 16:28 04/07/22 19:00 04/07/22 19:00 04/07/22 19:00 04/07/22 19:00 HEART Score - HEART Score Troponin: Troponin T < 0.010 ng/mL (0.00-0.029) 02/18/22 21:02 Results - Labs CBC & Chem 7: 04/07/22 03:55 04/07/22 03:55 Labs: Laboratory Last Values WBC 11.2 K/mm3 (4.5-11.0) H 04/07/22 03:55 RBC 3.55 M/mm3 (3.65-5.03) L 04/07/22 03:55 Hgb 10.8 gm/dl (11.8-15.2) L 04/07/22 03:55 Hct 34.2 % (35.5-45.6) L 04/07/22 03:55 MCV 97 fl (84-94) H 04/07/22 03:55 MCH 30 pg (28-32) 04/07/22 03:55 MCHC 31 % (32-34) L 04/07/22 03:55 RDW 18.6 % (13.2-15.2) H 04/07/22 03:55 Plt Count 352 K/mm3 (140-440) 04/07/22 03:55 Lymph % (Auto) 7.5 % (13.4-35.0) L 03/28/22 04:06 [place] % (Auto) 10.5 % (0.0-7.3) H 03/28/22 04:06 Eos % (Auto) 0.9 % (0.0-4.3) 03/28/22 04:06 Baso % (Auto) 0.4 % (0.0-1.8) 03/28/22 04:06 Lymph # (Auto) 1.1 K/mm3 (1.2-5.4) L 03/28/22 04:06 [place] # (Auto) 1.5 K/mm3 (0.0-0.8) H 03/28/22 04:06 Eos # (Auto) 0.1 K/mm3 (0.0-0.4) 03/28/22 04:06 Baso # (Auto) 0.1 K/mm3 (0.0-0.1) 03/28/22 04:06 Add Manual Diff Complete 03/03/22 03:54 Total Counted 100 03/03/22 03:54 Seg Neutrophils % 80.7 % (40.0-70.0) H 03/28/22 04:06 Seg Neuts % (Manual) 95.0 % (40.0-70.0) H 03/03/22 03:54 Band Neutrophils % 0 % 03/03/22 03:54 Lymphocytes % (Manual) 3.0 % (13.4-35.0) L 03/03/22 03:54 Reactive Lymphs % (Man) 0 % 03/03/22 03:54 Monocytes % (Manual) 2.0 % (0.0-7.3) 03/03/22 03:54 Eosinophils % (Manual) 0 % (0.0-4.3) 03/03/22 03:54 Basophils % (Manual) 0 % (0.0-1.8) 03/03/22 03:54 Metamyelocytes % 0 % 03/03/22 03:54 Myelocytes % 0 % 03/03/22 03:54 Promyelocytes % 0 % 03/03/22 03:54 Blast Cells % 0 % 03/03/22 03:54 Nucleated RBC % Not Reportable 03/03/22 03:54 Seg Neutrophils # 11.4 K/mm3 (1.8-7.7) H 03/28/22 04:06 Seg Neutrophils # Man 18.5 K/mm3 (1.8-7.7) H 03/03/22 03:54 Band Neutrophils # 0.0 K/mm3 03/03/22 03:54 Lymphocytes # (Manual) 0.6 K/mm3 (1.2-5.4) L 03/03/22 03:54 Abs React Lymphs (Man) 0.0 K/mm3 03/03/22 03:54 Monocytes # (Manual) 0.4 K/mm3 (0.0-0.8) 03/03/22 03:54 Eosinophils # (Manual) 0.0 K/mm3 (0.0-0.4) 03/03/22 03:54 Basophils # (Manual) 0.0 K/mm3 (0.0-0.1) 03/03/22 03:54 Metamyelocytes # 0.0 K/mm3 03/03/22 03:54 Myelocytes # 0.0 K/mm3 03/03/22 03:54 Promyelocytes # 0.0 K/mm3 03/03/22 03:54 Blast Cells # 0.0 K/mm3 03/03/22 03:54 WBC Morphology Not Reportable 03/03/22 03:54 Hypersegmented Neuts Not Reportable 03/03/22 03:54 Hyposegmented Neuts Not Reportable 03/03/22 03:54 Hypogranular Neuts Not Reportable 03/03/22 03:54 Smudge Cells Not Reportable 03/03/22 03:54 Toxic Granulation Not Reportable 03/03/22 03:54 Toxic Vacuolation Not Reportable 03/03/22 03:54 Dohle Bodies Not Reportable 03/03/22 03:54 Pelger-Huet Anomaly Not Reportable 03/03/22 03:54 Lakshmi Rods Not Reportable 03/03/22 03:54 Platelet Estimate Consistent w auto 03/03/22 03:54 Clumped Platelets Not Reportable 03/03/22 03:54 Plt Clumps, EDTA Not Reportable 03/03/22 03:54 Large Platelets Not Reportable 03/03/22 03:54 Giant Platelets Not Reportable 03/03/22 03:54 Platelet Satelliting Not Reportable 03/03/22 03:54 Plt Morphology Comment Not Reportable 03/03/22 03:54 RBC Morphology Not Reportable 03/03/22 03:54 Dimorphic RBCs Not Reportable 03/03/22 03:54 Polychromasia Not Reportable 03/03/22 03:54 Hypochromasia Not Reportable 03/03/22 03:54 Poikilocytosis Not Reportable 03/03/22 03:54 Anisocytosis 1+ 03/03/22 03:54 Microcytosis Not Reportable 03/03/22 03:54 Macrocytosis Not Reportable 03/03/22 03:54 Spherocytes Not Reportable 03/03/22 03:54 Pappenheimer Bodies Not Reportable 03/03/22 03:54 Sickle Cells Not Reportable 03/03/22 03:54 Target Cells Not Reportable 03/03/22 03:54 Tear Drop Cells Not Reportable 03/03/22 03:54 Ovalocytes Not Reportable 03/03/22 03:54 Helmet Cells Not Reportable 03/03/22 03:54 [place]-Marland Bodies Not Reportable 03/03/22 03:54 [place] Rings Not Reportable 03/03/22 03:54 [place] Cells Not Reportable 03/03/22 03:54 Bite Cells Not Reportable 03/03/22 03:54 Crenated Cell Not Reportable 03/03/22 03:54 Elliptocytes Not Reportable 03/03/22 03:54 Acanthocytes (Spur) Not Reportable 03/03/22 03:54 Rouleaux Not Reportable 03/03/22 03:54 Hemoglobin C Crystals Not Reportable 03/03/22 03:54 Schistocytes Not Reportable 03/03/22 03:54 Malaria parasites Not Reportable 03/03/22 03:54 Cash Bodies Not Reportable 03/03/22 03:54 Hem Pathologist Commnt No 03/03/22 03:54 PT 15.0 Sec. (12.2-14.9) H 04/07/22 03:55 INR 1.06 (0.87-1.13) 04/07/22 03:55 APTT 33.4 Sec. (24.2-36.6) 04/06/22 08:47 ABG pH 7.392 pH Units (7.350-7.450) 03/22/22 14:25 ABG pCO2 54.4 mm Hg 03/22/22 14:25 ABG pO2 150.5 mm Hg (80.0-90.0) H 03/22/22 14:25 ABG HCO3 32.4 mmol/L (20.0-26.0) H 03/22/22 14:25 ABG O2 Saturation 98.8 % (95.0-99.0) 03/22/22 14:25 ABG O2 Content 15.8 (0.0-44) 03/22/22 14:25 ABG Base Excess 6.2 mmol/L (-2.0-3.0) H 03/22/22 14:25 ABG Hemoglobin 11.4 gm/dl (14.0-18.0) L 03/22/22 14:25 ABG Carboxyhemoglobin 1.6 % (0.0-5.0) 03/22/22 14:25 ABG Methemoglobin 0.6 % (0.0-1.5) 03/22/22 14:25 Oxyhemoglobin 96.6 % (95.0-99.0) 03/22/22 14:25 FiO2 30 % 03/22/22 14:25 Sodium 137 mmol/L (137-145) 04/07/22 03:55 Potassium 5.0 mmol/L (3.6-5.0) 04/07/22 03:55 Chloride 97.7 mmol/L (98-107) L 04/07/22 03:55 Carbon Dioxide 31 mmol/L (22-30) H 04/07/22 03:55 Anion Gap 13 mmol/L 04/07/22 03:55 BUN 21 mg/dL (9-20) H 04/07/22 03:55 Creatinine 0.6 mg/dL (0.8-1.3) L 04/07/22 03:55 Estimated GFR > 60 ml/min 04/07/22 03:55 BUN/Creatinine Ratio 35 % 04/07/22 03:55 Glucose 94 mg/dL (75-100) 04/07/22 03:55 POC Glucose 119 mg/dL (70-105) H 04/07/22 16:00 Lactic Acid 1.20 mmol/L (0.7-2.0) 02/18/22 21:02 Calcium 8.9 mg/dL (8.4-10.2) 04/07/22 03:55 Phosphorus 4.00 mg/dL (2.5-4.5) 04/07/22 03:55 Magnesium 1.90 mg/dL (1.7-2.3) 04/07/22 03:55 Total Bilirubin 0.30 mg/dL (0.1-1.2) 03/10/22 03:57 AST 17 units/L (5-40) 03/10/22 03:57 ALT 18 units/L (7-56) 03/10/22 03:57 Alkaline Phosphatase 89 units/L (35-129) 03/10/22 03:57 Ammonia 14.0 umol/L (25-60) L 02/18/22 23:22 Troponin T < 0.010 ng/mL (0.00-0.029) 02/18/22 21:02 Total Protein 6.6 g/dL (6.3-8.2) 03/10/22 03:57 Albumin 1.9 g/dL (3.9-5) L 03/10/22 03:57 Albumin/Globulin Ratio 0.4 % 03/10/22 03:57 Urine Color Yellow (Yellow) 03/27/22 08:36 Urine Turbidity Cloudy (Clear) 03/27/22 08:36 Urine pH 7.0 (5.0-7.0) 02/18/22 Unknown Ur Specific [place] 1.015 (1.003-1.030) 02/18/22 Unknown Specific [place] (Man) 1.020 (1.003-1.030) 03/27/22 08:36 Urine Protein <15 mg/dl mg/dL (Negative) 02/18/22 Unknown Ur Protein (Man) 1+ mg/dL (Negative) 03/27/22 08:36 Urine Glucose (UA) Negative mg/dL (Negative) 02/18/22 Unknown Urine Ketones Negative mg/dL (Negative) 02/18/22 Unknown Ur Ketones (Man) Negative (Negative) 03/27/22 08:36 Urine Blood Trace (Negative) 02/18/22 Unknown Urine Nitrite Negative (Negative) 02/18/22 Unknown Ur Nitrite (Man) Negative (Negative) 03/27/22 08:36 Ur Reducing Substances Not Reportable 03/27/22 08:36 Urine Bilirubin Negative (Negative) 02/18/22 Unknown Urine Bilirubin (Man) Negative (Negative) 03/27/22 08:36 Urine Ictotest Not Reportable 03/27/22 08:36 Urine Urobilinogen < 2.0 mg/dL (<2.0) 02/18/22 Unknown Ur Leukocyte Esterase Negative (Negative) 02/18/22 Unknown Leukocyte Esterase (Man) Moderate (Negative) 03/27/22 08:36 Urine WBC (Auto) > 182.0 /HPF (0.0-6.0) H 03/27/22 08:36 Urine RBC (Auto) 9.0 /HPF (0.0-6.0) 03/27/22 08:36 U Epithel Cells (Auto) < 1.0 /HPF (0-13.0) 03/27/22 08:36 Urine RBC (Manual) 1+ (Negative) 03/27/22 08:36 Urine Mucus Few /HPF 03/27/22 08:36 Urine Yeast (Budding) 2+ /HPF 03/27/22 08:36 Urine Opiates Screen Negative 02/18/22 Unknown Urine Methadone Screen Negative 02/18/22 Unknown Ur Barbiturates Screen Negative 02/18/22 Unknown Ur Phencyclidine Scrn Negative 02/18/22 Unknown Ur Amphetamines Screen Negative 02/18/22 Unknown U Benzodiazepines Scrn Negative 02/18/22 Unknown Urine Cocaine Screen Negative 02/18/22 Unknown U Marijuana (THC) Screen Negative 02/18/22 Unknown Drugs of Abuse Note Disclamer 02/18/22 Unknown Plasma/Serum Alcohol < 0.01 % (0-0.07) 02/18/22 21:02 Summers/IV: Voiding Method Indwelling Catheter Active Medications - Current Medications Current Medications: Generic Name Dose Route Start Last Admin Trade Name Freq PRN Reason Stop Dose Admin Acetaminophen 650 mg 03/03/22 09:00 Acetaminophen 325 Mg/10.15 Ml Oral Liqd Unit Dose FEEDTUBE Q4H PRN Pain, Mild (1-3); TEMP > 100.4 Albuterol 2.5 mg 03/12/22 20:00 04/07/22 13:05 Albuterol 2.5 Mg/3 Ml Nebu IH 2.5 mg Q6HRT LAZARUS Administration Famotidine 20 mg 02/25/22 10:00 04/07/22 09:14 Famotidine 20 Mg Tab FEEDTUBE 20 mg BID LAZARUS Administration Heparin Sodium (Porcine) 5,000 unit 02/19/22 06:00 04/07/22 13:26 Heparin 5,000 Unit/1 Ml Vial SUB-Q Not Given Q8HR LAZARUS Levetiracetam 500 mg 02/25/22 22:00 04/07/22 09:14 Levetiracetam 500 Mg/5 Ml Oral Liqd FEEDTUBE 500 mg BID LAZARUS Administration Levothyroxine Sodium 25 mcg 02/26/22 06:00 04/07/22 06:40 Levothyroxine 25 Mcg Tab FEEDTUBE 25 mcg QAM@0600 LAZARUS Administration Magnesium Hydroxide 30 ml 02/19/22 02:02 04/03/22 04:14 Magnesium Hydroxide (Mom) Oral Liqd Udc PO 30 ml Q4H PRN Administration Constipation Midodrine 5 mg 04/03/22 12:00 04/07/22 18:24 Midodrine 5 Mg Tab FEEDTUBE 5 mg TID@0800,1200,1600 LAZARUS Administration Multi-Ingred Cream/Lotion/Oil/Oint 1 applic 02/24/22 15:05 Mineral Oil/Petrolatum, White Ophth Oint 3.5 Gm OU Q4HR PRN Dry Eye(s) Ondansetron HCl 4 mg 02/19/22 02:02 Ondansetron 4 Mg/2 Ml Inj IV Q8H PRN Nausea And Vomiting Pravastatin Sodium 40 mg 02/25/22 22:00 04/06/22 23:19 Pravastatin 40 Mg Tab FEEDTUBE 40 mg QHS LAZARUS Administration Senna/Docusate Sodium 1 tab 02/24/22 22:00 04/07/22 09:14 Sennosides/Docusate Sodium 8.6/50 Mg Tab FEEDTUBE 1 tab BID LAZARUS Administration Sodium Chloride 10 ml 02/19/22 10:00 04/07/22 09:14 Sodium Chloride 0.9% 10 Ml Flush Syringe IV 10 ml BID LAZARUS Administration Sodium Chloride 10 ml 02/19/22 02:02 03/03/22 14:21 Sodium Chloride 0.9% 10 Ml Flush Syringe IV 10 ml PRN PRN Administration LINE FLUSH Nutrition/Malnutrition Assess - Dietary Evaluation Nutrition/Malnutrition Findings: Nutrition Notes Start: 02/19/22 14:29 Freq: Status: Active Protocol: Document 04/04/22 13:07 IVAN (Rec: 04/04/22 13:10 [facility] [id number]) Nutrition Notes Initial or Follow up Brief Note Current Diet TF - Promote at 65ml/hr Subjective/Other Information Observed Promote infusing at goal rate of 65ml/hr. Pt tolerating TF at goal rate. BM documented on 04/01 and 04/03 . Pt remains on vent support. Percent of energy/protein needs met: 98% energy 100% pro Nutrition Intervention Follow-Up By: 04/11/22 Additional Comments F/U: stable TF, vent status, trach/PEG placement, BM
[2022-04-07] MEDS ORDERED: ROCURONIUM 50 MG/5 ML INJ IV ONE (14:04)
[2022-04-07] MEDS ORDERED: LACTATED RINGERS 1,000 ML ONE (15:19)
--- NOTE | 2022-04-07 15:24 | Progress Note ---
Assessment and Plan 61 yo M with VDRF All pertinent lab and imaging reviewed independently. Vent settings: FIO2 30%, PEEP 6 Plan: 1. Vent management per ICU 2. TF have been held since [place] last night 3. offloading 4. DVT ppx 5. Discussed trach and peg with state appointed guardian Srinivasa Marcosolph . Consent obtained. Pt added to OR for today Thank you, please call with questions or concerns. Subjective Date of service: 04/07/22 Narrative: Pt seen and examined. Has been appointed a state guardian and can proceed with trach and peg. Patient has failed multiple weaning attempts. No acute changes in condition Objective Vital Signs - 12hr 04/07/22 04/07/22 04/07/22 04:00 04:15 05:00 Temperature 99.2 F Pulse Rate 95 H 95 H 89 Pulse Rate [ Anterior Bilateral Throughout] Pulse Rate [ From Monitor] Respiratory 19 6 L 18 Rate Respiratory Rate [Anterior Bilateral Throughout] Blood Pressure 130/73 130/73 132/78 O2 Sat by Pulse 94 97 95 Oximetry 04/07/22 04/07/22 04/07/22 06:00 07:00 07:15 Temperature 99.3 F Pulse Rate 89 91 H 91 H Pulse Rate [ 90 Anterior Bilateral Throughout] Pulse Rate [ From Monitor] Respiratory 18 15 Rate Respiratory 15 Rate [Anterior Bilateral Throughout] Blood Pressure 126/75 129/75 129/69 O2 Sat by Pulse 92 92 98 Oximetry 04/07/22 04/07/22 04/07/22 07:57 08:00 08:50 Temperature Pulse Rate 87 86 91 H Pulse Rate [ Anterior Bilateral Throughout] Pulse Rate [ 86 From Monitor] Respiratory 14 18 Rate Respiratory Rate [Anterior Bilateral Throughout] Blood Pressure 126/75 109/71 O2 Sat by Pulse 99 95 Oximetry 04/07/22 04/07/22 04/07/22 09:00 10:09 11:00 Temperature Pulse Rate 89 88 89 Pulse Rate [ Anterior Bilateral Throughout] Pulse Rate [ From Monitor] Respiratory 18 16 17 Rate Respiratory Rate [Anterior Bilateral Throughout] Blood Pressure 112/67 109/71 O2 Sat by Pulse 96 97 95 Oximetry 04/07/22 04/07/22 04/07/22 11:41 12:00 13:00 Temperature 98.2 F Pulse Rate 94 H 91 H Pulse Rate [ Anterior Bilateral Throughout] Pulse Rate [ 88 From Monitor] Respiratory 19 17 Rate Respiratory Rate [Anterior Bilateral Throughout] Blood Pressure 115/67 118/73 O2 Sat by Pulse 97 95 Oximetry 04/07/22 04/07/22 13:05 15:10 Temperature Pulse Rate 80 Pulse Rate [ 89 Anterior Bilateral Throughout] Pulse Rate [ From Monitor] Respiratory 13 Rate Respiratory 18 Rate [Anterior Bilateral Throughout] Blood Pressure 138/88 O2 Sat by Pulse 100 Oximetry - General physical appearance Narrative Exam: Gen.: Intubated. Opens eyes to voice but does not follow commands. No apparent distress ENT: Trachea midline. No masses. ETT and dobhoff in place. No lymphadenopathy. No scleral icterus or conjunctival pallor CV: S1, S2 present Respiratory: No audible wheezes Abdomen: Soft, nondistended, nontender. There is a large left mid to lower quadrant scar. No rebound, rigidity, guarding Extremities: No clubbing, cyanosis, edema - Labs 04/07/22 03:55 04/07/22 03:55 Diabetes panel 04/07/22 Range/Units 03:55 Sodium 137 (137-145) mmol/L Potassium 5.0 (3.6-5.0) mmol/L Chloride 97.7 L (98-107) mmol/L Carbon Dioxide 31 H (22-30) mmol/L BUN 21 H (9-20) mg/dL Creatinine 0.6 L (0.8-1.3) mg/dL Glucose 94 (75-100) mg/dL Calcium 8.9 (8.4-10.2) mg/dL Calcium panel 04/07/22 Range/Units 03:55 Calcium 8.9 (8.4-10.2) mg/dL Phosphorus 4.00 (2.5-4.5) mg/dL Pituitary panel 04/07/22 Range/Units 03:55 Sodium 137 (137-145) mmol/L Potassium 5.0 (3.6-5.0) mmol/L Chloride 97.7 L (98-107) mmol/L Carbon Dioxide 31 H (22-30) mmol/L BUN 21 H (9-20) mg/dL Creatinine 0.6 L (0.8-1.3) mg/dL Glucose 94 (75-100) mg/dL Calcium 8.9 (8.4-10.2) mg/dL Adrenal panel 04/07/22 Range/Units 03:55 Sodium 137 (137-145) mmol/L Potassium 5.0 (3.6-5.0) mmol/L Chloride 97.7 L (98-107) mmol/L Carbon Dioxide 31 H (22-30) mmol/L BUN 21 H (9-20) mg/dL Creatinine 0.6 L (0.8-1.3) mg/dL Glucose 94 (75-100) mg/dL Calcium 8.9 (8.4-10.2) mg/dL
--- NOTE | 2022-04-07 15:46 | Anesthesia Day of Surgery ---
Anesthesia Day of Surgery - Day of Surgery Patient Examined: Yes Patient H&P Reviewed: Yes Patient is NPO: Yes
--- NOTE | 2022-04-07 15:49 | Post Anesthesia Evaluation ---
- Post Anesthesia Evaluation Patient Participated: No Airway Patent: Yes Stable Respiratory Function: Yes Nausea/Vomiting: No Temp > 96.8F: Yes Pain Manageable: Yes Adequeate Hydration: Yes Anesthesia Complications: No Block Receding Appropriately: Not Applicable Patient on Ventilator: Yes
--- NOTE | 2022-04-07 15:49 | Anesthesia Consultation ---
Anesthesia Consult and Med Hx Date of service: 04/07/22 - Airway Intubation Access Assessment: Good (Intubated) - Pre-Operative Health Status ASA Pre-Surgery Classification: ASA4 Proposed Anesthetic Plan: General - Pulmonary Hx Respiratory Symptoms: Yes Hx Pneumonia: Yes (Admitted with aspiration pneumonia) - Cardiovascular System Hx Hypertension: Yes - Central Nervous System Hx Neuromuscular Disorder: Yes (Down's, partial blindness) Hx Seizures: Yes - Endocrine Hx Hypothyroidism: Yes - Hematic Hx Anemia: Yes
--- NOTE | 2022-04-07 15:51 | Procedure Note ---
Date of procedure: 04/07/22 Pre-op diagnosis: vent dependence Post-op diagnosis: same Procedure: Percutaneous tracheostomy Findings: HPI and indication: Patient is a 61-year-old male who is had a protracted hospital course. He was intubated for airway protection during the hospital stay and has not been able to be weaned from the ventilator. Today is day 42 of intubation. The patient has no legal next of kin and a state appointed guardian was assigned on 04/04/2022. Consent was obtained for tracheostomy and PEG tube placement. Procedure in detail: The patient was identified in the ICU and brought down to the operating room and positioned in supine position in the hospital bed. Consent was verified on the chart timeout was performed. Anesthesia was administered. A shoulder roll was placed, with the patient's neck mildly hyperextended. The neck was prepped and draped in usual sterile fashion. Dr. Orozco performed fiberoptic bronchoscopy throughout the entire procedure. The fiberoptic bronchoscope was inserted through the endotracheal tube via the adapter and the trachea examined. The trachea was unremarkable and the 7.5 ET tube was approximately 2 cm from colt at 24 cm at the lip. 1% lidocaine was infiltrated into the skin and subcutaneous tissue approximately 2 fingerbreadths above the sternal notch. A 2 cm incision was made in a horizontal fashion using a 15 blade. Using a hemostat the soft tissues were bluntly dissected until the trachea was encountered. The ET tube was then pulled back slowly to 17 cm. Using the introducer needle, the trachea was entered under direct visualization. The wire was passed down the trachea towards the colt. Introducer needle was then removed. The trachea was then serially dilated, after which a 8 [place] Shiley tracheostomy tube was inserted. The balloon was visualized via fiberoptic bronchoscopy. The balloon was inflated, patient placed back on ventilator. There was end-tidal CO2 detected and tidal volumes assessed which were satisfactory. The bronchoscope was then placed through the tracheostomy and showed good positioning of the tracheostomy approximately 3 cm above the colt and no bleeding. There was thick mucus that was suctioned from the trachea. A drain sponge was placed between the skin and tracheostomy. The tracheostomy was secured to the patient's neck using a tracheostomy strap. A post op chest x-ray is pending. The patient tolerated the procedure well. All sharps were disposed of appropriately. PEG tube was performed next please see separate note. Implants: 8 [place] Shiley Anesthesia: GETA, local Surgeon: JUANITA CANCHOLA Estimated blood loss: minimal Pathology: none Condition: stable Disposition: no change
--- NOTE | 2022-04-07 15:59 | XRay Report ---
CHEST 1 VIEW 04/07/2022 3:38 PM INDICATION / CLINICAL INFORMATION: trach. COMPARISON: 04/03/2022 FINDINGS: SUPPORT DEVICES: Tracheostomy tube terminates approximately 5.3 cm colt. HEART / MEDIASTINUM: No significant abnormality. LUNGS / PLEURA: Redemonstrated bibasilar opacities. No pneumothorax. ADDITIONAL FINDINGS: No significant additional findings. IMPRESSION: 1. Tracheostomy tube terminates proximal to 5.3 cm from the colt. Signer Name: Orion Horner DO Signed: 04/07/2022 3:54 PM Workstation Name: [id number]
--- NOTE | 2022-04-07 17:09 | Operative Report ---
Operative Report Operative Report: Date:04/07/2022 Surgeon: Shivam Orozco MD Pre-op diagnosis: respiratory Post-op diagnosis: same as pre-op Procedure:Fiberoptic bronchoscopy Anesthesia:GETA Indication: Patient is a 61 male. Patient intubated and sedated therefore unable to provided detail history. The patient has been unable to be weaned from the ventilator and therefore tracheostomy with assistance of fiberoptic bronchoscopy is indicated along with PEG tube placement. All risks were discussed with the guardian, and consent obtained. Procedure in detail: The patient was identified in the hospital bed in the ICU and brought down to the OR. After anesthesia was induced, the fiberoptic bronchoscope was passed through the endotracheal tube using an adapter. The trachea and colt were visualized, there was a normal appearance of the mucosa and no debris or fluid was seen. At this point, Dr. Camargo who performed the tracheostomy portion of the procedure (please see separate operative note), asked for the endotracheal tube to be withdrawn slowly. The upper trachea was visualized and appeared normal. At this point, Dr. Camargo placed the tracheostomy tube under direct visualization by fiberoptic bronchoscopy. Please see separate operative note for more details on Tracheostomy placement. Once the tracheostomy tube was placed, the bronchoscope was withdrawn from the endotracheal tube and placed through the tracheostomy tube. The tracheostomy tube appeared to be in good position approximately 3-4 cm above the colt. The bronchoscope was then withdrawn. The procedure was terminated and the patient was returned to ICU in stable condition. Complication: none immediate
--- NOTE | 2022-04-07 17:12 | Operative Report ---
Operative Report Operative Report: Date: 04/07/2022 Surgeon: Shivam Orozco MD Co-Surgeon: Dee Camargo DO Pre-op Dx: respiratory failure Post-op Dx: same as pre-op Anesthesia: GETA Indiction: Pt is a 61 year old male who is an able to weaned from ventilator and also requiring assisted tube feeds. He is here today for PEG tube placemen t. Guardian signed informed consent. Details of procedure: A mouth guard was placed through which a flexible endoscope was passed through the mouth and into the esophagus. The NG tube was visualized along the way. The endoscope was advanced through the esophagus and into the stomach. The stomach was unremarkable. The stomach was insufflated and transillumination performed. An area of transillumination was visualized in the left upper quadrant and marked. Dr. Camargo performed the beside tube placement. The skin was then prepped and draped in usual sterile fashion. Local anesthetic was infiltrated to the skin at the intended incision site. A small incision was made in the skin using an 11 blade. An introducer needle/breakaway sheath was inserted directly through this incision into the stomach under direct endoscopic visualization. The needle was removed. The wire was passed and grasped with a snare by the library serials assistant and the wire pulled along with the endoscope through the mouth. The PEG tube was assembled onto the wire and pulled back through the mouth and down into the stomach. The outer bumper was at 4 cm at the skin. The PEG tube was cut to size and assembled in the usual fashion. A drain sponge was applied between the skin and the PEG tube and the tube secured with tape. I then reinserted the endoscope into the mouth and down into the stomach. The PEG tube inner bumper was seen to lay flush against the gastric mucosa without tension. There is no bleeding. The pylorus was entered and the first portion of the duodenum was unremarkable. The scope was then withdrawn back into the stomach and retroflexed. The entirety of the stomach was unremarkable with the exception of gastritis. The Dubhoff tube was withdrawn. The stomach was then desufflated and the endoscope withdrawn. EBL: minimal Complications: none immediate
[2022-04-07] MEDS: PRAVASTATIN 40 MG TAB FEEDTUBE SCH (23:06)
[2022-04-08] MEDS: ALBUTEROL 2.5 MG/3 ML NEBU IH SCH ×3 (03:39→13:52)
[2022-04-08] MEDS: LEVOTHYROXINE 25 MCG TAB FEEDTUBE SCH (06:20)
[2022-04-08] MEDS: HEPARIN 5,000 UNIT/1 ML VIAL SUB-Q SCH ×2 (06:20→13:11)
[2022-04-08] MEDS: MIDODRINE 5 MG TAB FEEDTUBE SCH ×3 (09:11→17:18)
[2022-04-08] MEDS: SENNOSIDES/DOCUSATE SODIUM 8.6/50 MG TAB FEEDTUBE SCH (09:11)
[2022-04-08] MEDS: FAMOTIDINE 20 MG TAB FEEDTUBE SCH (09:11)
[2022-04-08] MEDS: levETIRAcetam 500 MG/5 ML ORAL LIQD FEEDTUBE SCH (09:11)
--- NOTE | 2022-04-08 10:51 | Progress Note ---
Assessment and Plan 61 y/o male with abnormal CT of chest. 04/08/22: Trach and Pegged now. Awaiting placement. Continue PSV trials. 04/07/22: Day 42 of intubation. Awaiting consents to be obtained for trach and peg. Continue pSV trials. All supportive measures. 04/04/22: Day 39 of intubation. Now with guardian, consent can be obtained. hopeful will have surgery sometime next week. Continue supportive measures including daily weaning trials. 04/03/22: Day [address] appointed guardian as it has been approved. 04/02/22: Day 37 of intubation. Continue daily PSV trials. Courts agree with guardianship now awaiting on one to be appointed. 04/01/22: Day 36 of intubation. Continue Daily PSV. Per CM awaiting guardian appointment as courts have agreed to this. 03/31/22: Day 35 of intubation. CBC and chemistry is stable. Awaiting courts and hospital. 03/30/22: Day 34 of intubation. No labs today. Monitor fever as he had low grade temp early am. Rocephin finished yesterday. 03/29/22: Day 33 of intubation. WC now normal. No fever. Hard stop date on the abx. Awaiting Hospital and Court about guardianship. 03/28/22: Day 32 of intubation. WBC better. No fever. Still awaiting hospital and courts. 03/27/22: Day 31 of intubation. Given increase in WBC will treat empirically with Rocephin. Follow up urine cultures. CXR appears stable, await official read. Guarded prognosis. 03/26/22: Day 30 of Intubation. Daily PSV trials. no new recommendations. 03/25/22: Day 29 of intubation. RT to try PSV this am, hesistant given low sats but improved with suctioning. Still no word from the hospital in regards to guardianship. I do not feel comfortable with attempting extubation again on this patient given his quick failure and difficult re-intubation. 03/24/22: Day 28 of intubation. reviewed my partners notes from the weekend. Glad patient is tolerating PSV however do not see conventional extubation in the near future given patient's mental status and how fast he failed extubation (within an hour) on his first attempt. Patient was also a difficult re- intubation. Follow up with and hospital tomorrow. Continue supportive measures. 03/21/22: Day 25 of intubation. No new updates from the hospital about guardianship. Wound care saw on yesterday. Continue daily PSV trials as tolerated. Guarded prognosis. 03/20/22: Day 24 of intubation. No new recommendations. Still awaiting hospital update in regards to guardianship so that decisions can be made. Continue supportive measures. Wound care to see today. 03/19/22: Day 23 of intubation. Prognosis is still guarded. Will discuss with RT about attempts at daily PSV trials. Per notes, Wound care to see , wound was present on admission. 03/18/22: Day 22 of intubation. Prognosis remains guarded. Not able to obtain trach and peg with consent. Continue daily PSV trials as tolerated. 03/17/22: Day 21 of intubation. Still awaiting some form of decision maker for trach and peg placement. Guarded prognosis. 03/16/22: Day 20 of intubation. BP stable. Continue midodrine. Awaiting emergency guardianship from Court to obtain consent for trach and peg. Guarded prognosis. 03/15/22: Day 19 of intubation. BP now is marginal more regularly. Will give an additional liter bolus of LR now. May need to increase Midodrine back to 5. Needs trach in order to be safely weaned from ventilator. Will need peg tube placement in addition to trach. Prognosis remains guarded. Continue PSV trials as tolerated. 03/14/22: Day 18 of intubation. Vitals stable and mental status is unchanged. Still in need of tracheostomy as well as peg tube placement. No guardian appointed yet. 03/13/22: Day 17 of intubation. Agree with bolus and restarting of midodrine. was stopped previously secondary to bradycardia. If patient spikes temp, will culture blood and urine and repeat CXR. Continue daily PSV trials to assess ability for vent liberation. Continues to need trach however no family/guardian to provide consent. Guarded prognosis. 03/12/22: Day 16 of intubation. Following up with hospital in regards to francie lopez. Continue supportive measures. Guarded prognosis. 03/11/22: hospital now attempting to find emergency guardian to have consent for trach as ethics committee cannot comment on this matter so unable to help. Until then will remain intubated orally. Failed PSV yesterday, will continue to attempt on daily basis. Unfortunate situation. Guarded prognosis. 03/10/22: Today nuñez day 14 of intubation. Given patient's mental state and increased risk of aspiration, the likelihood of conventional extubation with success is very very slim and the patient has already failed this in an extrem gaye short period of time (less than 1 hour). I suspect that he will fail again if tried and could create more difficult reintubation as he was a difficult reintubation on his failed extubation attempt. To prevent further decline and potential complications of prolonged mechanical ventilation, will discuss with ethics and the hospital to use 2 physician consent to obtain trach and peg for this patient with hopes of liberating him from the mechanical ventilator. he has very minimal vent requirements but as been stated several times above, he continues to aspirate and failed conventional extubation almost immediately. Will consult surgery today. Dr. Mancia is prepared to sign consent as well as myself. Hopeful surgery will be on board with this. Continue supportive care for now. Attempt daily PSV trials. 03/07/22: Daily PSV trials as tolerated. Still no one to step up as adult frien d. patient has now been intubated since 02/24/22 and is approaching the time period in which prolonged mechanical ventilation could lead to significant complications that could be detrimental to health (infection, stenosis, malacia etc). Will discuss again with ethics but in regards to medical necessity, may need to consider two physician consent if no one is able to claim responsibility for this patient. He is a full code and we must work in his best interest to prevent further harm. Continue supportive measures but he is not a candidate for conventional extubation given his mental state, despite being on minimal support. He has already failed this before. 03/06/22: PSV trials daily. Will discuss with RT. Spoke with ethics. Plan in place and awaiting on news from halfway and state. Continue supportive measures. Patient has been intubated since 02/24/22 and is approaching the 2 week shadi of intubation will need to make decisions soon to avoid unnecessary complications related to prolonged intubation. 03/05/22: Will follow up with ethics today. Awaiting some guidance about consent for trach and peg. This is a medical necessity to liberate patient from mechanical ventilation. Continue supportive measures. Ok with daily PSV trials 03/04/22: Follow up with ethics later this afternoon. Spoke with RT and patient does have cuff leak, will stop steroids. Stopping midodrine as BP is stable and bradycardia likely from this. 03/03/22: Await ethics eval. CM has spoken with state as well. Daily cuff leaks. Will start to wean steroids tomorrow. Midodrine can cause bradycardia. If continues or worsens will stop. Guarded prognosis. 03/02/22: Continue supportive measures. Await ethics consult before surgery consult for trach and peg. no further need for fluid boluses. Will continue stress dose steroids but have daily air leak checks by RT. Still will need trach, will not attempt extubation again. Guarded prognosis. 03/01/22: Patient is having increased urine output. This could be the cause of new onset hypotension. Will bolus 2 more liters of LR now and reassess. If this continues may need to work up for SIADH including repeat head CT. Follow up ethics review of case. Will need trach for ventilator liberation. Overall prognosis remains guarded. 02/28/22: Will obtain CT neck, noncontrast to look for airway edema or other possible etiologies for failure. Needs ethics consult as given patient's mental state, inability to clear secretions appropriately, will need trach now that he has failed extubation. However he has no family and no POA so no one to give consent. Continue supportive measures. Guarded prognosis. 02/27/22: Continue improvement of oxygenation. Will drop PEEP down today with goal of being at 6 by in the morning. Will repeat CT scan to confirm improvement as no endobronchial lesion was seen, but also to make sure no parenchymal mass. There was no evidence of extrinsic compression during bronch. Likely extubation tomorrow post CT. 02/26/22: Repeat CXR now. Wean Vent as tolerated. Hopeful extubation soon. Mucous removed. NO ENDOBRONCHIAL LESION/MASS 02/25/22: Bronch tentatively planned for tomorrow with therapeutic scope. Awaiting GI lab to give a time. NPO after midnight. Continue high PEEP 02/24/22: WIll attempt to bronch tomorrow morning. NPO after midnight. Just received word from GI lab they are not able to do bronch tomorrow. Cancel NPO order. Continue to feed patient. Repeat ABG in AM along with CXR. 02/21/22: No new pulm recs for today. Please obtain repeat CXR likely on Thursday. If patient happens to get worse, likely not a candidate for bipap given his weak cough and mental state and inability to communicate. If worsens and requires intubation, will bronch then under emergent circumstances if no POA or family is able to be located. Continue CPT. Will discuss with RT about NT suctioning. 02/20/22: Saw speech while on the floor. Would like patient to be NPO now. Discussed with nurse on floor and with IMS. Same recs pulm way as yesterday. Would benefit from bronch if able to get consent as this is not emergent. Continue CPT and q shift NT suctioning. Reviewed admission in the past and of note, patient was recently admitted last month and had a CXR done on the 29 of January that was normal. Given this patient's medical history and the history that I obtained from the nursing staff that at the assisted he was eating solid foods, I suspect that this is aspiration, possibly of a foreign body (most likely food) with atelectasis of the right lower lobe. It is highly unlikely that a mass evolved in size in less than a months time and patient, besides age, has no real risk factors for lung carcinoma. Discussed with the nurse and unfortunately there is no identifiable person that is able to give consent. Bronchoscopy is needed in the case to evaluate to see if lung mass is there vs foreign body, but at this time not able to do. In the meanwhile will recommend the following. 1. Will order CPT with neb therapy 3x daily 2. Suggest maybe NT suctioning q shift. May use nasal trumpet, however do not leave this device in the patient 3. Aspiration precautions 4. Consider speech eval to assess swallowing. Will continue to follow. CCT 31 minutes. Subjective Date of service: 04/08/22 Principal diagnosis: f/u Acute respiratory failure Interval history: Trached and pegged on yesterday. Objective Vital Signs - 12hr 04/07/22 04/07/22 04/07/22 23:00 23:11 23:59 Temperature Pulse Rate 111 H 111 H 104 H Pulse Rate [ Anterior Bilateral Throughout] Pulse Rate [ From Monitor] Respiratory 24 23 Rate Respiratory Rate [Anterior Bilateral Throughout] Blood Pressure 119/63 119/63 108/58 O2 Sat by Pulse 95 96 96 Oximetry O2 Sat by Pulse Oximetry [ Assessment] 04/08/22 04/08/22 04/08/22 00:00 01:00 02:00 Temperature 100.6 F H Pulse Rate 103 H 105 H 106 H Pulse Rate [ Anterior Bilateral Throughout] Pulse Rate [ 94 H From Monitor] Respiratory 15 14 15 Rate Respiratory Rate [Anterior Bilateral Throughout] Blood Pressure 108/58 107/64 105/58 O2 Sat by Pulse 96 92 94 Oximetry O2 Sat by Pulse Oximetry [ Assessment] 04/08/22 04/08/22 04/08/22 03:00 03:39 04:00 Temperature 98.8 F Pulse Rate 109 H 110 H Pulse Rate [ 110 H Anterior Bilateral Throughout] Pulse Rate [ 94 H From Monitor] Respiratory 21 19 Rate Respiratory 17 Rate [Anterior Bilateral Throughout] Blood Pressure 90/66 101/59 O2 Sat by Pulse 91 93 Oximetry O2 Sat by Pulse Oximetry [ Assessment] 04/08/22 04/08/22 04/08/22 05:00 06:01 07:00 Temperature Pulse Rate 109 H 102 H 100 H Pulse Rate [ Anterior Bilateral Throughout] Pulse Rate [ From Monitor] Respiratory 17 16 14 Rate Respiratory Rate [Anterior Bilateral Throughout] Blood Pressure 106/65 103/70 102/66 O2 Sat by Pulse 94 92 98 Oximetry O2 Sat by Pulse Oximetry [ Assessment] 04/08/22 04/08/22 04/08/22 07:09 08:00 08:20 Temperature 100.1 F H Pulse Rate 95 H 96 H Pulse Rate [ 108 H Anterior Bilateral Throughout] Pulse Rate [ 95 H From Monitor] Respiratory 14 Rate Respiratory 18 Rate [Anterior Bilateral Throughout] Blood Pressure 106/69 106/89 O2 Sat by Pulse 99 97 Oximetry O2 Sat by Pulse Oximetry [ Assessment] 04/08/22 04/08/22 04/08/22 08:30 09:00 10:01 Temperature Pulse Rate 102 H 106 H Pulse Rate [ Anterior Bilateral Throughout] Pulse Rate [ From Monitor] Respiratory 18 23 Rate Respiratory Rate [Anterior Bilateral Throughout] Blood Pressure 99/53 127/74 O2 Sat by Pulse 94 93 Oximetry O2 Sat by Pulse 96 Oximetry [ Assessment] Constitutional: alert, other (critically ill on ventilator) Eyes: non-icteric ENT: oropharynx moist Neck: supple Effort: normal Ascultation: Bilateral: diminished breath sounds, rhonchi Cardiovascular: regular rate and rhythm (no mrg) Gastrointestinal: normoactive bowel sounds, soft, non-tender (on o2 vest in place), non-distended Integumentary: normal Extremities: no cyanosis, no edema Neurologic: other (awake) Psychiatric: other (unable to assess) CBC and BMP: 04/07/22 03:55 04/07/22 03:55 ABG, PT/INR, D-dimer: ABG ABG pH 7.392 pH Units (7.350-7.450) 03/22/22 14:25 ABG pCO2 54.4 mm Hg 03/22/22 14:25 ABG pO2 150.5 mm Hg (80.0-90.0) H 03/22/22 14:25 ABG O2 Saturation 98.8 % (95.0-99.0) 03/22/22 14:25 PT/INR, D-dimer PT 15.0 Sec. (12.2-14.9) H 04/07/22 03:55 INR 1.06 (0.87-1.13) 04/07/22 03:55 Abnormal lab findings: Abnormal Labs 02/18/22 02/18/22 02/18/22 19:34 21:02 21:02 WBC RBC Hgb Hct MCV 101 H MCH 34 H MCHC RDW 16.1 H Lymph % (Auto) [place] % (Auto) 12.4 H Lymph # (Auto) [place] # (Auto) 1.2 H Seg Neutrophils % 73.0 H Seg Neuts % (Manual) Lymphocytes % (Manual) Seg Neutrophils # Seg Neutrophils # Man Lymphocytes # (Manual) PT 16.9 H INR 1.20 H ABG pH ABG pO2 ABG HCO3 ABG O2 Saturation ABG Base Excess ABG Hemoglobin Oxyhemoglobin Sodium Potassium Chloride Carbon Dioxide BUN Creatinine Glucose POC Glucose 116 H Calcium Phosphorus AST ALT Ammonia Albumin Urine WBC (Auto) 02/18/22 02/18/22 02/18/22 21:02 22:45 23:22 WBC RBC Hgb Hct MCV MCH MCHC RDW Lymph % (Auto) [place] % (Auto) Lymph # (Auto) [place] # (Auto) Seg Neutrophils % Seg Neuts % (Manual) Lymphocytes % (Manual) Seg Neutrophils # Seg Neutrophils # Man Lymphocytes # (Manual) PT INR ABG pH ABG pO2 55.6 L ABG HCO3 28.4 H ABG O2 Saturation 91.5 L ABG Base Excess 3.8 H ABG Hemoglobin 13.2 L Oxyhemoglobin 89.6 L Sodium Potassium 5.1 H Chloride Carbon Dioxide BUN Creatinine Glucose 102 H POC Glucose Calcium Phosphorus AST 48 H ALT 64 H Ammonia 14.0 L Albumin 2.7 L Urine WBC (Auto) 02/20/22 02/20/22 02/23/22 04:59 04:59 06:29 WBC 11.4 H RBC Hgb Hct MCV 103 H MCH 33 H MCHC RDW 16.5 H Lymph % (Auto) 5.5 L [place] % (Auto) 12.1 H Lymph # (Auto) 0.6 L [place] # (Auto) 1.4 H Seg Neutrophils % 81.4 H Seg Neuts % (Manual) Lymphocytes % (Manual) Seg Neutrophils # 9.2 H Seg Neutrophils # Man Lymphocytes # (Manual) PT INR ABG pH ABG pO2 ABG HCO3 ABG O2 Saturation ABG Base Excess ABG Hemoglobin Oxyhemoglobin Sodium Potassium Chloride Carbon Dioxide BUN Creatinine Glucose POC Glucose 113 H Calcium 8.2 L Phosphorus AST ALT Ammonia Albumin Urine WBC (Auto) 02/23/22 02/23/22 02/24/22 11:22 16:10 00:02 WBC RBC Hgb Hct MCV MCH MCHC RDW Lymph % (Auto) [place] % (Auto) Lymph # (Auto) [place] # (Auto) Seg Neutrophils % Seg Neuts % (Manual) Lymphocytes % (Manual) Seg Neutrophils # Seg Neutrophils # Man Lymphocytes # (Manual) PT INR ABG pH ABG pO2 ABG HCO3 ABG O2 Saturation ABG Base Excess ABG Hemoglobin Oxyhemoglobin Sodium Potassium Chloride Carbon Dioxide BUN Creatinine Glucose POC Glucose 108 H 115 H 109 H Calcium Phosphorus AST ALT Ammonia Albumin Urine WBC (Auto) 02/24/22 02/24/22 02/24/22 11:05 11:05 13:20 WBC RBC 3.55 L Hgb Hct MCV 100 H MCH 34 H MCHC RDW 15.6 H Lymph % (Auto) [place] % (Auto) Lymph # (Auto) [place] # (Auto) Seg Neutrophils % Seg Neuts % (Manual) Lymphocytes % (Manual) Seg Neutrophils # Seg Neutrophils # Man Lymphocytes # (Manual) PT INR ABG pH ABG pO2 ABG HCO3 ABG O2 Saturation ABG Base Excess ABG Hemoglobin Oxyhemoglobin Sodium 146 H Potassium 3.2 L D Chloride 108.4 H Carbon Dioxide BUN Creatinine 0.5 L Glucose POC Glucose 111 H Calcium 7.9 L Phosphorus 2.20 L AST ALT Ammonia Albumin Urine WBC (Auto) 02/24/22 02/24/22 02/24/22 16:30 17:03 20:25 WBC RBC Hgb Hct MCV MCH MCHC RDW Lymph % (Auto) [place] % (Auto) Lymph # (Auto) [place] # (Auto) Seg Neutrophils % Seg Neuts % (Manual) Lymphocytes % (Manual) Seg Neutrophils # Seg Neutrophils # Man Lymphocytes # (Manual) PT INR ABG pH 7.319 L ABG pO2 65.3 L ABG HCO3 31.3 H ABG O2 Saturation 92.2 L ABG Base Excess 3.8 H ABG Hemoglobin 12.0 L Oxyhemoglobin 90.3 L Sodium Potassium Chloride 107.9 H Carbon Dioxide BUN 8 L Creatinine 0.4 L Glucose POC Glucose 108 H Calcium 7.6 L Phosphorus 4.60 H D AST ALT Ammonia Albumin Urine WBC (Auto) 02/25/22 02/25/22 02/25/22 04:12 04:12 05:05 WBC RBC 3.07 L Hgb 10.2 L Hct 31.5 L MCV 103 H MCH 33 H MCHC RDW 15.6 H Lymph % (Auto) [place] % (Auto) Lymph # (Auto) [place] # (Auto) Seg Neutrophils % Seg Neuts % (Manual) Lymphocytes % (Manual) Seg Neutrophils # Seg Neutrophils # Man Lymphocytes # (Manual) PT INR ABG pH ABG pO2 ABG HCO3 32.5 H ABG O2 Saturation ABG Base Excess 5.6 H ABG Hemoglobin 10.8 L Oxyhemoglobin 94.8 L Sodium Potassium 3.5 L Chloride 107.7 H Carbon Dioxide BUN Creatinine 0.5 L Glucose POC Glucose Calcium 7.0 L Phosphorus AST ALT Ammonia Albumin Urine WBC (Auto) 02/25/22 02/25/22 02/26/22 12:05 18:33 00:07 WBC RBC Hgb Hct MCV MCH MCHC RDW Lymph % (Auto) [place] % (Auto) Lymph # (Auto) [place] # (Auto) Seg Neutrophils % Seg Neuts % (Manual) Lymphocytes % (Manual) Seg Neutrophils # Seg Neutrophils # Man Lymphocytes # (Manual) PT INR ABG pH ABG pO2 ABG HCO3 ABG O2 Saturation ABG Base Excess ABG Hemoglobin Oxyhemoglobin Sodium Potassium Chloride Carbon Dioxide BUN Creatinine Glucose POC Glucose 127 H 125 H 114 H Calcium Phosphorus AST ALT Ammonia Albumin Urine WBC (Auto) 02/26/22 02/26/22 02/26/22 03:30 04:42 11:34 WBC RBC Hgb Hct MCV MCH MCHC RDW Lymph % (Auto) [place] % (Auto) Lymph # (Auto) [place] # (Auto) Seg Neutrophils % Seg Neuts % (Manual) Lymphocytes % (Manual) Seg Neutrophils # Seg Neutrophils # Man Lymphocytes # (Manual) PT INR ABG pH ABG pO2 143.2 H ABG HCO3 33.2 H ABG O2 Saturation ABG Base Excess 6.5 H ABG Hemoglobin 9.4 L Oxyhemoglobin Sodium Potassium Chloride Carbon Dioxide 32 H BUN Creatinine 0.7 L Glucose POC Glucose 114 H Calcium 8.0 L Phosphorus AST ALT Ammonia Albumin Urine WBC (Auto) 02/26/22 02/26/22 02/27/22 18:17 23:37 04:19 WBC 13.7 H RBC 2.78 L Hgb 9.3 L Hct 28.5 L MCV 103 H MCH 33 H MCHC RDW 16.3 H Lymph % (Auto) [place] % (Auto) Lymph # (Auto) [place] # (Auto) Seg Neutrophils % Seg Neuts % (Manual) Lymphocytes % (Manual) Seg Neutrophils # Seg Neutrophils # Man Lymphocytes # (Manual) PT INR ABG pH ABG pO2 ABG HCO3 ABG O2 Saturation ABG Base Excess ABG Hemoglobin Oxyhemoglobin Sodium Potassium Chloride Carbon Dioxide BUN Creatinine Glucose POC Glucose 111 H 117 H Calcium Phosphorus AST ALT Ammonia Albumin Urine WBC (Auto) 02/27/22 02/27/22 02/27/22 04:19 04:35 05:27 WBC RBC Hgb Hct MCV MCH MCHC RDW Lymph % (Auto) [place] % (Auto) Lymph # (Auto) [place] # (Auto) Seg Neutrophils % Seg Neuts % (Manual) Lymphocytes % (Manual) Seg Neutrophils # Seg Neutrophils # Man Lymphocytes # (Manual) PT INR ABG pH ABG pO2 96.3 H ABG HCO3 34.9 H ABG O2 Saturation ABG Base Excess 8.1 H ABG Hemoglobin Oxyhemoglobin Sodium Potassium Chloride Carbon Dioxide 31 H BUN Creatinine 0.6 L Glucose 107 H POC Glucose 133 H Calcium 7.8 L Phosphorus AST ALT Ammonia Albumin Urine WBC (Auto) 0802/27/22 02/28/22 11:15 23:35 03:38 WBC 13.3 H RBC 3.05 L Hgb 10.2 L Hct 30.7 L MCV 101 H MCH 33 H MCHC RDW 16.1 H Lymph % (Auto) [place] % (Auto) Lymph # (Auto) [place] # (Auto) Seg Neutrophils % Seg Neuts % (Manual) Lymphocytes % (Manual) Seg Neutrophils # Seg Neutrophils # Man Lymphocytes # (Manual) PT INR ABG pH ABG pO2 ABG HCO3 ABG O2 Saturation ABG Base Excess ABG Hemoglobin Oxyhemoglobin Sodium Potassium Chloride Carbon Dioxide BUN Creatinine Glucose POC Glucose 129 H 122 H Calcium Phosphorus AST ALT Ammonia Albumin Urine WBC (Auto) 02/28/22 02/28/22 02/28/22 04:50 05:30 09:30 WBC RBC Hgb Hct MCV MCH MCHC RDW Lymph % (Auto) [place] % (Auto) Lymph # (Auto) [place] # (Auto) Seg Neutrophils % Seg Neuts % (Manual) Lymphocytes % (Manual) Seg Neutrophils # Seg Neutrophils # Man Lymphocytes # (Manual) PT INR ABG pH 7.451 H 7.488 H ABG pO2 77.0 L ABG HCO3 37.1 H 34.6 H ABG O2 Saturation ABG Base Excess 11.5 H 10.1 H ABG Hemoglobin 10.1 L 10.0 L Oxyhemoglobin Sodium Potassium Chloride Carbon Dioxide BUN Creatinine Glucose POC Glucose 121 H Calcium Phosphorus AST ALT Ammonia Albumin Urine WBC (Auto) 02/28/22 02/28/22 03/01/22 11:36 23:07 04:27 WBC 12.5 H RBC 2.85 L Hgb 9.5 L Hct 28.6 L MCV 101 H MCH 33 H MCHC RDW 15.7 H Lymph % (Auto) [place] % (Auto) Lymph # (Auto) [place] # (Auto) Seg Neutrophils % Seg Neuts % (Manual) Lymphocytes % (Manual) Seg Neutrophils # Seg Neutrophils # Man Lymphocytes # (Manual) PT INR ABG pH ABG pO2 ABG HCO3 ABG O2 Saturation ABG Base Excess ABG Hemoglobin Oxyhemoglobin Sodium Potassium Chloride Carbon Dioxide BUN Creatinine Glucose POC Glucose 112 H 107 H Calcium Phosphorus AST ALT Ammonia Albumin Urine WBC (Auto) 03/01/22 03/01/22 03/01/22 04:27 05:05 11:29 WBC RBC Hgb Hct MCV MCH MCHC RDW Lymph % (Auto) [place] % (Auto) Lymph # (Auto) [place] # (Auto) Seg Neutrophils % Seg Neuts % (Manual) Lymphocytes % (Manual) Seg Neutrophils # Seg Neutrophils # Man Lymphocytes # (Manual) PT INR ABG pH ABG pO2 ABG HCO3 ABG O2 Saturation ABG Base Excess ABG Hemoglobin Oxyhemoglobin Sodium 147 H D Potassium Chloride Carbon Dioxide 34 H BUN Creatinine 0.6 L Glucose 128 H POC Glucose 119 H 121 H Calcium 7.9 L Phosphorus AST ALT Ammonia Albumin Urine WBC (Auto) 03/01/22 03/01/22 03/02/22 16:15 23:57 05:18 WBC RBC Hgb Hct MCV MCH MCHC RDW Lymph % (Auto) [place] % (Auto) Lymph # (Auto) [place] # (Auto) Seg Neutrophils % Seg Neuts % (Manual) Lymphocytes % (Manual) Seg Neutrophils # Seg Neutrophils # Man Lymphocytes # (Manual) PT INR ABG pH ABG pO2 110.5 H ABG HCO3 33.0 H ABG O2 Saturation ABG Base Excess 7.4 H ABG Hemoglobin 8.6 L Oxyhemoglobin Sodium Potassium Chloride Carbon Dioxide BUN Creatinine Glucose POC Glucose 134 H 140 H Calcium Phosphorus AST ALT Ammonia Albumin Urine WBC (Auto) 03/02/22 03/02/22 03/02/22 05:53 09:04 09:04 WBC 15.0 H RBC 3.00 L Hgb 9.7 L Hct 30.7 L MCV 102 H MCH MCHC RDW 16.6 H Lymph % (Auto) [place] % (Auto) Lymph # (Auto) [place] # (Auto) Seg Neutrophils % Seg Neuts % (Manual) Lymphocytes % (Manual) Seg Neutrophils # Seg Neutrophils # Man Lymphocytes # (Manual) PT INR ABG pH ABG pO2 ABG HCO3 ABG O2 Saturation ABG Base Excess ABG Hemoglobin Oxyhemoglobin Sodium Potassium Chloride Carbon Dioxide 31 H BUN Creatinine 0.6 L Glucose 157 H POC Glucose 158 H Calcium 7.9 L Phosphorus AST ALT Ammonia Albumin Urine WBC (Auto) 03/02/22 03/02/22 03/02/22 11:36 16:25 23:17 WBC RBC Hgb Hct MCV MCH MCHC RDW Lymph % (Auto) [place] % (Auto) Lymph # (Auto) [place] # (Auto) Seg Neutrophils % Seg Neuts % (Manual) Lymphocytes % (Manual) Seg Neutrophils # Seg Neutrophils # Man Lymphocytes # (Manual) PT INR ABG pH ABG pO2 ABG HCO3 ABG O2 Saturation ABG Base Excess ABG Hemoglobin Oxyhemoglobin Sodium Potassium Chloride Carbon Dioxide BUN Creatinine Glucose POC Glucose 160 H 132 H 157 H Calcium Phosphorus AST ALT Ammonia Albumin Urine WBC (Auto) 03/03/22 03/03/22 03/03/22 03:54 03:54 05:27 WBC 19.5 H RBC 2.79 L Hgb 9.0 L Hct 28.6 L MCV 102 H MCH MCHC RDW 16.2 H Lymph % (Auto) [place] % (Auto) Lymph # (Auto) [place] # (Auto) Seg Neutrophils % Seg Neuts % (Manual) 95.0 H Lymphocytes % (Manual) 3.0 L Seg Neutrophils # Seg Neutrophils # Man 18.5 H Lymphocytes # (Manual) 0.6 L PT INR ABG pH ABG pO2 ABG HCO3 ABG O2 Saturation ABG Base Excess ABG Hemoglobin Oxyhemoglobin Sodium Potassium Chloride Carbon Dioxide BUN Creatinine 0.6 L Glucose 130 H POC Glucose 149 H Calcium 8.1 L Phosphorus AST ALT Ammonia Albumin Urine WBC (Auto) 03/03/22 03/03/22 03/04/22 11:13 17:30 00:02 WBC RBC Hgb Hct MCV MCH MCHC RDW Lymph % (Auto) [place] % (Auto) Lymph # (Auto) [place] # (Auto) Seg Neutrophils % Seg Neuts % (Manual) Lymphocytes % (Manual) Seg Neutrophils # Seg Neutrophils # Man Lymphocytes # (Manual) PT INR ABG pH ABG pO2 ABG HCO3 ABG O2 Saturation ABG Base Excess ABG Hemoglobin Oxyhemoglobin Sodium Potassium Chloride Carbon Dioxide BUN Creatinine Glucose POC Glucose 139 H 138 H 157 H Calcium Phosphorus AST ALT Ammonia Albumin Urine WBC (Auto) 03/04/22 03/04/22 03/04/22 05:32 05:32 05:48 WBC 16.1 H RBC 2.81 L Hgb 9.3 L Hct 28.8 L MCV 102 H MCH 33 H MCHC RDW 16.7 H Lymph % (Auto) [place] % (Auto) Lymph # (Auto) [place] # (Auto) Seg Neutrophils % Seg Neuts % (Manual) Lymphocytes % (Manual) Seg Neutrophils # Seg Neutrophils # Man Lymphocytes # (Manual) PT INR ABG pH ABG pO2 ABG HCO3 ABG O2 Saturation ABG Base Excess ABG Hemoglobin Oxyhemoglobin Sodium Potassium Chloride Carbon Dioxide BUN Creatinine 0.7 L Glucose 135 H POC Glucose 145 H Calcium 8.3 L Phosphorus AST ALT Ammonia Albumin Urine WBC (Auto) 03/04/22 03/04/22 03/05/22 11:34 16:29 00:28 WBC RBC Hgb Hct MCV MCH MCHC RDW Lymph % (Auto) [place] % (Auto) Lymph # (Auto) [place] # (Auto) Seg Neutrophils % Seg Neuts % (Manual) Lymphocytes % (Manual) Seg Neutrophils # Seg Neutrophils # Man Lymphocytes # (Manual) PT INR ABG pH ABG pO2 ABG HCO3 ABG O2 Saturation ABG Base Excess ABG Hemoglobin Oxyhemoglobin Sodium Potassium Chloride Carbon Dioxide BUN Creatinine Glucose POC Glucose 148 H 140 H 116 H Calcium Phosphorus AST ALT Ammonia Albumin Urine WBC (Auto) 03/05/22 03/05/22 03/05/22 06:29 11:30 17:38 WBC RBC Hgb Hct MCV MCH MCHC RDW Lymph % (Auto) [place] % (Auto) Lymph # (Auto) [place] # (Auto) Seg Neutrophils % Seg Neuts % (Manual) Lymphocytes % (Manual) Seg Neutrophils # Seg Neutrophils # Man Lymphocytes # (Manual) PT INR ABG pH ABG pO2 ABG HCO3 ABG O2 Saturation ABG Base Excess ABG Hemoglobin Oxyhemoglobin Sodium Potassium Chloride Carbon Dioxide BUN Creatinine Glucose POC Glucose 114 H 114 H 117 H Calcium Phosphorus AST ALT Ammonia Albumin Urine WBC (Auto) 03/06/22 03/06/22 03/06/22 04:17 04:17 06:06 WBC 13.4 H RBC 2.85 L Hgb 9.4 L Hct 29.0 L MCV 102 H MCH 33 H MCHC RDW 16.4 H Lymph % (Auto) [place] % (Auto) Lymph # (Auto) [place] # (Auto) Seg Neutrophils % Seg Neuts % (Manual) Lymphocytes % (Manual) Seg Neutrophils # Seg Neutrophils # Man Lymphocytes # (Manual) PT INR ABG pH ABG pO2 ABG HCO3 ABG O2 Saturation ABG Base Excess ABG Hemoglobin Oxyhemoglobin Sodium Potassium 3.5 L Chloride Carbon Dioxide 31 H BUN Creatinine 0.6 L Glucose 101 H POC Glucose 106 H Calcium 7.7 L Phosphorus 2.00 L AST ALT Ammonia Albumin Urine WBC (Auto) 03/06/22 03/06/22 03/07/22 18:04 23:50 05:14 WBC RBC Hgb Hct MCV MCH MCHC RDW Lymph % (Auto) [place] % (Auto) Lymph # (Auto) [place] # (Auto) Seg Neutrophils % Seg Neuts % (Manual) Lymphocytes % (Manual) Seg Neutrophils # Seg Neutrophils # Man Lymphocytes # (Manual) PT INR ABG pH ABG pO2 ABG HCO3 ABG O2 Saturation ABG Base Excess ABG Hemoglobin Oxyhemoglobin Sodium Potassium Chloride Carbon Dioxide BUN Creatinine Glucose POC Glucose 108 H 115 H 116 H Calcium Phosphorus AST ALT Ammonia Albumin Urine WBC (Auto) 03/07/22 03/07/22 03/08/22 11:42 18:13 04:34 WBC RBC 2.86 L Hgb 9.2 L Hct 29.3 L MCV 103 H MCH MCHC 31 L RDW 16.9 H Lymph % (Auto) [place] % (Auto) Lymph # (Auto) [place] # (Auto) Seg Neutrophils % Seg Neuts % (Manual) Lymphocytes % (Manual) Seg Neutrophils # Seg Neutrophils # Man Lymphocytes # (Manual) PT INR ABG pH ABG pO2 ABG HCO3 ABG O2 Saturation ABG Base Excess ABG Hemoglobin Oxyhemoglobin Sodium Potassium Chloride Carbon Dioxide BUN Creatinine Glucose POC Glucose 123 H 109 H Calcium Phosphorus AST ALT Ammonia Albumin Urine WBC (Auto) 03/08/22 03/08/22 03/08/22 04:34 11:29 16:34 WBC RBC Hgb Hct MCV MCH MCHC RDW Lymph % (Auto) [place] % (Auto) Lymph # (Auto) [place] # (Auto) Seg Neutrophils % Seg Neuts % (Manual) Lymphocytes % (Manual) Seg Neutrophils # Seg Neutrophils # Man Lymphocytes # (Manual) PT INR ABG pH ABG pO2 ABG HCO3 ABG O2 Saturation ABG Base Excess ABG Hemoglobin Oxyhemoglobin Sodium Potassium Chloride Carbon Dioxide 33 H BUN Creatinine 0.5 L Glucose 109 H POC Glucose 117 H 109 H Calcium 7.6 L Phosphorus AST ALT Ammonia Albumin Urine WBC (Auto) 03/08/22 03/09/22 03/10/22 23:56 11:15 03:57 WBC RBC 2.99 L Hgb 9.9 L Hct 30.3 L MCV 102 H MCH 33 H MCHC RDW 16.8 H Lymph % (Auto) 13.3 L [place] % (Auto) 12.5 H Lymph # (Auto) [place] # (Auto) 1.3 H Seg Neutrophils % 72.4 H Seg Neuts % (Manual) Lymphocytes % (Manual) Seg Neutrophils # Seg Neutrophils # Man Lymphocytes # (Manual) PT INR ABG pH ABG pO2 ABG HCO3 ABG O2 Saturation ABG Base Excess ABG Hemoglobin Oxyhemoglobin Sodium Potassium Chloride Carbon Dioxide BUN Creatinine Glucose POC Glucose 106 H 110 H Calcium Phosphorus AST ALT Ammonia Albumin Urine WBC (Auto) 03/10/22 03/10/22 03/10/22 03:57 04:50 16:04 WBC RBC Hgb Hct MCV MCH MCHC RDW Lymph % (Auto) [place] % (Auto) Lymph # (Auto) [place] # (Auto) Seg Neutrophils % Seg Neuts % (Manual) Lymphocytes % (Manual) Seg Neutrophils # Seg Neutrophils # Man Lymphocytes # (Manual) PT INR ABG pH 7.465 H ABG pO2 ABG HCO3 31.9 H ABG O2 Saturation ABG Base Excess 7.3 H ABG Hemoglobin 11.0 L Oxyhemoglobin Sodium Potassium 3.4 L Chloride Carbon Dioxide BUN Creatinine 0.6 L Glucose POC Glucose 115 H Calcium 8.1 L Phosphorus AST ALT Ammonia Albumin 1.9 L Urine WBC (Auto) 03/11/22 03/11/22 03/11/22 04:02 04:02 04:02 WBC 12.0 H RBC 2.81 L Hgb 9.2 L Hct 29.1 L MCV 103 H MCH 33 H MCHC RDW 17.5 H Lymph % (Auto) [place] % (Auto) Lymph # (Auto) [place] # (Auto) Seg Neutrophils % Seg Neuts % (Manual) Lymphocytes % (Manual) Seg Neutrophils # Seg Neutrophils # Man Lymphocytes # (Manual) PT 16.2 H INR 1.16 H ABG pH ABG pO2 ABG HCO3 ABG O2 Saturation ABG Base Excess ABG Hemoglobin Oxyhemoglobin Sodium Potassium Chloride Carbon Dioxide BUN Creatinine 0.5 L Glucose 104 H POC Glucose Calcium 7.9 L Phosphorus AST ALT Ammonia Albumin Urine WBC (Auto) 03/11/22 03/11/22 03/11/22 05:10 11:07 16:32 WBC RBC Hgb Hct MCV MCH MCHC RDW Lymph % (Auto) [place] % (Auto) Lymph # (Auto) [place] # (Auto) Seg Neutrophils % Seg Neuts % (Manual) Lymphocytes % (Manual) Seg Neutrophils # Seg Neutrophils # Man Lymphocytes # (Manual) PT INR ABG pH 7.476 H ABG pO2 ABG HCO3 29.7 H ABG O2 Saturation ABG Base Excess 5.7 H ABG Hemoglobin 9.1 L Oxyhemoglobin Sodium Potassium Chloride Carbon Dioxide BUN Creatinine Glucose POC Glucose 108 H 121 H Calcium Phosphorus AST ALT Ammonia Albumin Urine WBC (Auto) 03/12/22 03/13/22 03/13/22 05:51 06:08 12:02 WBC RBC 2.73 L Hgb 9.0 L Hct 27.5 L MCV 101 H MCH 33 H MCHC RDW 17.2 H Lymph % (Auto) [place] % (Auto) Lymph # (Auto) [place] # (Auto) Seg Neutrophils % Seg Neuts % (Manual) Lymphocytes % (Manual) Seg Neutrophils # Seg Neutrophils # Man Lymphocytes # (Manual) PT INR ABG pH ABG pO2 ABG HCO3 ABG O2 Saturation ABG Base Excess ABG Hemoglobin Oxyhemoglobin Sodium Potassium Chloride Carbon Dioxide BUN Creatinine Glucose POC Glucose 116 H 111 H Calcium Phosphorus AST ALT Ammonia Albumin Urine WBC (Auto) 03/13/22 03/13/22 03/14/22 12:48 18:17 03:58 WBC RBC 2.97 L Hgb 9.7 L Hct 30.0 L MCV 101 H MCH 33 H MCHC RDW 16.7 H Lymph % (Auto) [place] % (Auto) Lymph # (Auto) [place] # (Auto) Seg Neutrophils % Seg Neuts % (Manual) Lymphocytes % (Manual) Seg Neutrophils # Seg Neutrophils # Man Lymphocytes # (Manual) PT INR ABG pH ABG pO2 ABG HCO3 ABG O2 Saturation ABG Base Excess ABG Hemoglobin Oxyhemoglobin Sodium Potassium Chloride Carbon Dioxide BUN Creatinine Glucose POC Glucose 125 H 114 H Calcium Phosphorus AST ALT Ammonia Albumin Urine WBC (Auto) 03/14/22 03/14/22 03/14/22 03:58 13:01 16:41 WBC RBC Hgb Hct MCV MCH MCHC RDW Lymph % (Auto) [place] % (Auto) Lymph # (Auto) [place] # (Auto) Seg Neutrophils % Seg Neuts % (Manual) Lymphocytes % (Manual) Seg Neutrophils # Seg Neutrophils # Man Lymphocytes # (Manual) PT INR ABG pH ABG pO2 ABG HCO3 ABG O2 Saturation ABG Base Excess ABG Hemoglobin Oxyhemoglobin Sodium Potassium Chloride Carbon Dioxide BUN Creatinine 0.6 L Glucose POC Glucose 118 H 109 H Calcium 8.2 L Phosphorus AST ALT Ammonia Albumin Urine WBC (Auto) 03/16/22 03/16/22 03/17/22 05:28 05:28 23:19 WBC RBC 2.81 L Hgb 9.1 L Hct 27.8 L MCV 99 H MCH MCHC RDW 17.0 H Lymph % (Auto) [place] % (Auto) Lymph # (Auto) [place] # (Auto) Seg Neutrophils % Seg Neuts % (Manual) Lymphocytes % (Manual) Seg Neutrophils # Seg Neutrophils # Man Lymphocytes # (Manual) PT INR ABG pH ABG pO2 ABG HCO3 ABG O2 Saturation ABG Base Excess ABG Hemoglobin Oxyhemoglobin Sodium Potassium Chloride Carbon Dioxide BUN Creatinine 0.5 L Glucose POC Glucose 113 H Calcium 8.2 L Phosphorus AST ALT Ammonia Albumin Urine WBC (Auto) 03/20/22 03/20/22 03/20/22 04:09 04:09 17:22 WBC RBC 2.90 L Hgb 9.6 L Hct 28.9 L MCV 100 H MCH 33 H MCHC RDW 17.4 H Lymph % (Auto) [place] % (Auto) Lymph # (Auto) [place] # (Auto) Seg Neutrophils % Seg Neuts % (Manual) Lymphocytes % (Manual) Seg Neutrophils # Seg Neutrophils # Man Lymphocytes # (Manual) PT INR ABG pH ABG pO2 ABG HCO3 ABG O2 Saturation ABG Base Excess ABG Hemoglobin Oxyhemoglobin Sodium Potassium Chloride Carbon Dioxide BUN Creatinine 0.6 L Glucose POC Glucose 110 H Calcium 8.2 L Phosphorus AST ALT Ammonia Albumin Urine WBC (Auto) 03/21/22 03/21/22 03/22/22 18:24 23:09 12:18 WBC RBC Hgb Hct MCV MCH MCHC RDW Lymph % (Auto) [place] % (Auto) Lymph # (Auto) [place] # (Auto) Seg Neutrophils % Seg Neuts % (Manual) Lymphocytes % (Manual) Seg Neutrophils # Seg Neutrophils # Man Lymphocytes # (Manual) PT INR ABG pH ABG pO2 ABG HCO3 ABG O2 Saturation ABG Base Excess ABG Hemoglobin Oxyhemoglobin Sodium Potassium Chloride Carbon Dioxide BUN Creatinine Glucose POC Glucose 110 H 107 H 106 H Calcium Phosphorus AST ALT Ammonia Albumin Urine WBC (Auto) 03/22/22 03/23/22 03/23/22 14:25 00:21 11:31 WBC RBC Hgb Hct MCV MCH MCHC RDW Lymph % (Auto) [place] % (Auto) Lymph # (Auto) [place] # (Auto) Seg Neutrophils % Seg Neuts % (Manual) Lymphocytes % (Manual) Seg Neutrophils # Seg Neutrophils # Man Lymphocytes # (Manual) PT INR ABG pH ABG pO2 150.5 H ABG HCO3 32.4 H ABG O2 Saturation ABG Base Excess 6.2 H ABG Hemoglobin 11.4 L Oxyhemoglobin Sodium Potassium Chloride Carbon Dioxide BUN Creatinine Glucose POC Glucose 107 H 110 H Calcium Phosphorus AST ALT Ammonia Albumin Urine WBC (Auto) 03/24/22 03/24/22 03/24/22 03:47 03:47 05:56 WBC RBC 3.18 L Hgb 10.1 L Hct 31.1 L MCV 98 H MCH MCHC RDW 17.4 H Lymph % (Auto) [place] % (Auto) Lymph # (Auto) [place] # (Auto) Seg Neutrophils % Seg Neuts % (Manual) Lymphocytes % (Manual) Seg Neutrophils # Seg Neutrophils # Man Lymphocytes # (Manual) PT INR ABG pH ABG pO2 ABG HCO3 ABG O2 Saturation ABG Base Excess ABG Hemoglobin Oxyhemoglobin Sodium Potassium Chloride Carbon Dioxide BUN Creatinine 0.5 L Glucose POC Glucose 107 H Calcium Phosphorus AST ALT Ammonia Albumin Urine WBC (Auto) 03/24/22 03/25/22 03/25/22 11:15 00:14 11:24 WBC RBC Hgb Hct MCV MCH MCHC RDW Lymph % (Auto) [place] % (Auto) Lymph # (Auto) [place] # (Auto) Seg Neutrophils % Seg Neuts % (Manual) Lymphocytes % (Manual) Seg Neutrophils # Seg Neutrophils # Man Lymphocytes # (Manual) PT INR ABG pH ABG pO2 ABG HCO3 ABG O2 Saturation ABG Base Excess ABG Hemoglobin Oxyhemoglobin Sodium Potassium Chloride Carbon Dioxide BUN Creatinine Glucose POC Glucose 126 H 109 H 110 H Calcium Phosphorus AST ALT Ammonia Albumin Urine WBC (Auto) 03/25/22 03/26/22 03/26/22 16:27 05:18 11:15 WBC RBC Hgb Hct MCV MCH MCHC RDW Lymph % (Auto) [place] % (Auto) Lymph # (Auto) [place] # (Auto) Seg Neutrophils % Seg Neuts % (Manual) Lymphocytes % (Manual) Seg Neutrophils # Seg Neutrophils # Man Lymphocytes # (Manual) PT INR ABG pH ABG pO2 ABG HCO3 ABG O2 Saturation ABG Base Excess ABG Hemoglobin Oxyhemoglobin Sodium Potassium Chloride Carbon Dioxide BUN Creatinine Glucose POC Glucose 123 H 114 H 135 H Calcium Phosphorus AST ALT Ammonia Albumin Urine WBC (Auto) 03/26/22 03/27/22 03/27/22 18:08 03:52 03:52 WBC 17.1 H RBC 2.94 L Hgb 9.2 L Hct 29.3 L MCV 100 H MCH MCHC 31 L RDW 17.5 H Lymph % (Auto) [place] % (Auto) Lymph # (Auto) [place] # (Auto) Seg Neutrophils % Seg Neuts % (Manual) Lymphocytes % (Manual) Seg Neutrophils # Seg Neutrophils # Man Lymphocytes # (Manual) PT INR ABG pH ABG pO2 ABG HCO3 ABG O2 Saturation ABG Base Excess ABG Hemoglobin Oxyhemoglobin Sodium 136 L Potassium Chloride Carbon Dioxide 32 H BUN 23 H Creatinine 0.6 L Glucose POC Glucose 130 H Calcium 8.2 L Phosphorus AST ALT Ammonia Albumin Urine WBC (Auto) 03/27/22 03/27/22 03/27/22 08:36 12:55 18:27 WBC RBC Hgb Hct MCV MCH MCHC RDW Lymph % (Auto) [place] % (Auto) Lymph # (Auto) [place] # (Auto) Seg Neutrophils % Seg Neuts % (Manual) Lymphocytes % (Manual) Seg Neutrophils # Seg Neutrophils # Man Lymphocytes # (Manual) PT INR ABG pH ABG pO2 ABG HCO3 ABG O2 Saturation ABG Base Excess ABG Hemoglobin Oxyhemoglobin Sodium Potassium Chloride Carbon Dioxide BUN Creatinine Glucose POC Glucose 137 H 114 H Calcium Phosphorus AST ALT Ammonia Albumin Urine WBC (Auto) > 182.0 H 03/28/22 03/28/22 03/28/22 01:00 04:06 04:52 WBC 14.2 H RBC 2.76 L Hgb 8.6 L Hct 26.8 L MCV 97 H MCH MCHC RDW 17.4 H Lymph % (Auto) 7.5 L [place] % (Auto) 10.5 H Lymph # (Auto) 1.1 L [place] # (Auto) 1.5 H Seg Neutrophils % 80.7 H Seg Neuts % (Manual) Lymphocytes % (Manual) Seg Neutrophils # 11.4 H Seg Neutrophils # Man Lymphocytes # (Manual) PT INR ABG pH ABG pO2 ABG HCO3 ABG O2 Saturation ABG Base Excess ABG Hemoglobin Oxyhemoglobin Sodium Potassium Chloride Carbon Dioxide BUN Creatinine Glucose POC Glucose 111 H 111 H Calcium Phosphorus AST ALT Ammonia Albumin Urine WBC (Auto) 03/28/22 03/28/22 03/29/22 12:09 23:23 04:22 WBC RBC 2.85 L Hgb 8.9 L Hct 27.8 L MCV 98 H MCH MCHC RDW 17.8 H Lymph % (Auto) [place] % (Auto) Lymph # (Auto) [place] # (Auto) Seg Neutrophils % Seg Neuts % (Manual) Lymphocytes % (Manual) Seg Neutrophils # Seg Neutrophils # Man Lymphocytes # (Manual) PT INR ABG pH ABG pO2 ABG HCO3 ABG O2 Saturation ABG Base Excess ABG Hemoglobin Oxyhemoglobin Sodium Potassium Chloride Carbon Dioxide BUN Creatinine Glucose POC Glucose 114 H 112 H Calcium Phosphorus AST ALT Ammonia Albumin Urine WBC (Auto) 03/29/22 03/29/22 03/29/22 05:56 12:22 23:39 WBC RBC Hgb Hct MCV MCH MCHC RDW Lymph % (Auto) [place] % (Auto) Lymph # (Auto) [place] # (Auto) Seg Neutrophils % Seg Neuts % (Manual) Lymphocytes % (Manual) Seg Neutrophils # Seg Neutrophils # Man Lymphocytes # (Manual) PT INR ABG pH ABG pO2 ABG HCO3 ABG O2 Saturation ABG Base Excess ABG Hemoglobin Oxyhemoglobin Sodium Potassium Chloride Carbon Dioxide BUN Creatinine Glucose POC Glucose 116 H 130 H 121 H Calcium Phosphorus AST ALT Ammonia Albumin Urine WBC (Auto) 03/30/22 03/30/22 03/30/22 11:52 16:04 23:05 WBC RBC Hgb Hct MCV MCH MCHC RDW Lymph % (Auto) [place] % (Auto) Lymph # (Auto) [place] # (Auto) Seg Neutrophils % Seg Neuts % (Manual) Lymphocytes % (Manual) Seg Neutrophils # Seg Neutrophils # Man Lymphocytes # (Manual) PT INR ABG pH ABG pO2 ABG HCO3 ABG O2 Saturation ABG Base Excess ABG Hemoglobin Oxyhemoglobin Sodium Potassium Chloride Carbon Dioxide BUN Creatinine Glucose POC Glucose 127 H 122 H 113 H Calcium Phosphorus AST ALT Ammonia Albumin Urine WBC (Auto) 03/31/22 03/31/22 03/31/22 03:56 03:56 10:59 WBC RBC 3.08 L Hgb 9.5 L Hct 30.1 L MCV 98 H MCH MCHC RDW 17.7 H Lymph % (Auto) [place] % (Auto) Lymph # (Auto) [place] # (Auto) Seg Neutrophils % Seg Neuts % (Manual) Lymphocytes % (Manual) Seg Neutrophils # Seg Neutrophils # Man Lymphocytes # (Manual) PT INR ABG pH ABG pO2 ABG HCO3 ABG O2 Saturation ABG Base Excess ABG Hemoglobin Oxyhemoglobin Sodium 135 L Potassium Chloride 97.4 L Carbon Dioxide 31 H BUN Creatinine 0.5 L Glucose 102 H POC Glucose 120 H Calcium Phosphorus AST ALT Ammonia Albumin Urine WBC (Auto) 04/01/22 04/01/22 04/01/22 00:09 06:08 11:03 WBC RBC Hgb Hct MCV MCH MCHC RDW Lymph % (Auto) [place] % (Auto) Lymph # (Auto) [place] # (Auto) Seg Neutrophils % Seg Neuts % (Manual) Lymphocytes % (Manual) Seg Neutrophils # Seg Neutrophils # Man Lymphocytes # (Manual) PT INR ABG pH ABG pO2 ABG HCO3 ABG O2 Saturation ABG Base Excess ABG Hemoglobin Oxyhemoglobin Sodium Potassium Chloride Carbon Dioxide BUN Creatinine Glucose POC Glucose 118 H 137 H 133 H Calcium Phosphorus AST ALT Ammonia Albumin Urine WBC (Auto) 04/01/22 04/02/22 04/02/22 17:36 05:49 13:25 WBC RBC Hgb Hct MCV MCH MCHC RDW Lymph % (Auto) [place] % (Auto) Lymph # (Auto) [place] # (Auto) Seg Neutrophils % Seg Neuts % (Manual) Lymphocytes % (Manual) Seg Neutrophils # Seg Neutrophils # Man Lymphocytes # (Manual) PT INR ABG pH ABG pO2 ABG HCO3 ABG O2 Saturation ABG Base Excess ABG Hemoglobin Oxyhemoglobin Sodium Potassium Chloride Carbon Dioxide BUN Creatinine Glucose POC Glucose 116 H 107 H 124 H Calcium Phosphorus AST ALT Ammonia Albumin Urine WBC (Auto) 04/02/22 04/03/22 04/03/22 17:06 04:04 04:04 WBC RBC Hgb Hct MCV 98 H MCH MCHC RDW 17.9 H Lymph % (Auto) [place] % (Auto) Lymph # (Auto) [place] # (Auto) Seg Neutrophils % Seg Neuts % (Manual) Lymphocytes % (Manual) Seg Neutrophils # Seg Neutrophils # Man Lymphocytes # (Manual) PT 15.2 H INR ABG pH ABG pO2 ABG HCO3 ABG O2 Saturation ABG Base Excess ABG Hemoglobin Oxyhemoglobin Sodium Potassium Chloride Carbon Dioxide BUN Creatinine Glucose POC Glucose 110 H Calcium Phosphorus AST ALT Ammonia Albumin Urine WBC (Auto) 09/04/03/22 04/03/22 04:04 11:40 17:21 WBC RBC Hgb Hct MCV MCH MCHC RDW Lymph % (Auto) [place] % (Auto) Lymph # (Auto) [place] # (Auto) Seg Neutrophils % Seg Neuts % (Manual) Lymphocytes % (Manual) Seg Neutrophils # Seg Neutrophils # Man Lymphocytes # (Manual) PT INR ABG pH ABG pO2 ABG HCO3 ABG O2 Saturation ABG Base Excess ABG Hemoglobin Oxyhemoglobin Sodium 136 L Potassium Chloride 97.1 L Carbon Dioxide BUN Creatinine 0.6 L Glucose POC Glucose 117 H 107 H Calcium Phosphorus 4.90 H AST ALT Ammonia Albumin Urine WBC (Auto) 04/03/22 04/04/22 04/04/22 23:50 11:39 17:51 WBC RBC Hgb Hct MCV MCH MCHC RDW Lymph % (Auto) [place] % (Auto) Lymph # (Auto) [place] # (Auto) Seg Neutrophils % Seg Neuts % (Manual) Lymphocytes % (Manual) Seg Neutrophils # Seg Neutrophils # Man Lymphocytes # (Manual) PT INR ABG pH ABG pO2 ABG HCO3 ABG O2 Saturation ABG Base Excess ABG Hemoglobin Oxyhemoglobin Sodium Potassium Chloride Carbon Dioxide BUN Creatinine Glucose POC Glucose 115 H 117 H 122 H Calcium Phosphorus AST ALT Ammonia Albumin Urine WBC (Auto) 04/04/22 04/05/22 04/05/22 23:16 05:48 21:28 WBC RBC Hgb Hct MCV MCH MCHC RDW Lymph % (Auto) [place] % (Auto) Lymph # (Auto) [place] # (Auto) Seg Neutrophils % Seg Neuts % (Manual) Lymphocytes % (Manual) Seg Neutrophils # Seg Neutrophils # Man Lymphocytes # (Manual) PT INR ABG pH ABG pO2 ABG HCO3 ABG O2 Saturation ABG Base Excess ABG Hemoglobin Oxyhemoglobin Sodium Potassium Chloride Carbon Dioxide BUN Creatinine Glucose POC Glucose 117 H 116 H 116 H Calcium Phosphorus AST ALT Ammonia Albumin Urine WBC (Auto) 04/06/22 04/06/22 04/07/22 11:08 22:02 03:55 WBC 11.2 H RBC 3.55 L Hgb 10.8 L Hct 34.2 L MCV 97 H MCH MCHC 31 L RDW 18.6 H Lymph % (Auto) [place] % (Auto) Lymph # (Auto) [place] # (Auto) Seg Neutrophils % Seg Neuts % (Manual) Lymphocytes % (Manual) Seg Neutrophils # Seg Neutrophils # Man Lymphocytes # (Manual) PT INR ABG pH ABG pO2 ABG HCO3 ABG O2 Saturation ABG Base Excess ABG Hemoglobin Oxyhemoglobin Sodium Potassium Chloride Carbon Dioxide BUN Creatinine Glucose POC Glucose 115 H 120 H Calcium Phosphorus AST ALT Ammonia Albumin Urine WBC (Auto) 04/07/22 04/07/22 04/07/22 03:55 03:55 11:14 WBC RBC Hgb Hct MCV MCH MCHC RDW Lymph % (Auto) [place] % (Auto) Lymph # (Auto) [place] # (Auto) Seg Neutrophils % Seg Neuts % (Manual) Lymphocytes % (Manual) Seg Neutrophils # Seg Neutrophils # Man Lymphocytes # (Manual) PT 15.0 H INR ABG pH ABG pO2 ABG HCO3 ABG O2 Saturation ABG Base Excess ABG Hemoglobin Oxyhemoglobin Sodium Potassium Chloride 97.7 L Carbon Dioxide 31 H BUN 21 H Creatinine 0.6 L Glucose POC Glucose 106 H Calcium Phosphorus AST ALT Ammonia Albumin Urine WBC (Auto) 04/07/22 04/07/22 04/08/22 16:00 23:26 05:59 WBC RBC Hgb Hct MCV MCH MCHC RDW Lymph % (Auto) [place] % (Auto) Lymph # (Auto) [place] # (Auto) Seg Neutrophils % Seg Neuts % (Manual) Lymphocytes % (Manual) Seg Neutrophils # Seg Neutrophils # Man Lymphocytes # (Manual) PT INR ABG pH ABG pO2 ABG HCO3 ABG O2 Saturation ABG Base Excess ABG Hemoglobin Oxyhemoglobin Sodium Potassium Chloride Carbon Dioxide BUN Creatinine Glucose POC Glucose 119 H 139 H 128 H Calcium Phosphorus AST ALT Ammonia Albumin Urine WBC (Auto)
--- NOTE | 2022-04-08 11:04 | Progress Note ---
Assessment and Plan Assessment and plan: This is a 51-year-old male with HTN, seizure disorder, Down syndrome, HLD, partial blindness admitted with aspiration pneumonia, probable bronchogenic carcinoma, acute hypoxic respiratory failure and acute encephalopathy Neuro: h/o seizure disorder, Down syndrome, partial blindness -Reorientation as needed -Maintain sleep-wake cycle -aspiration/seizure precautions -As needed analgesia -CT head showed no acute abnormality -Continue Keppra Cardiac: h/o HTN, HLD -Cardiology consulted, appreciate recommendations -Blood pressure monitoring per protocol -PO Midodrine Respiratory: Acute hypoxic respiratory failure, ruled out bronchogenic carcinoma -CCM consulted, appreciate recommendations -Intubated on 02/24 with a 8.0 at 23 at the lips but extubated 02/28 -reintubated 02/28 with 8.0 OETT -Vent settings: CPAP 06/24 -See RT notes for titration -VAP bundle -SPO2 monitoring per protocol -02/18 CTA chest showed no evidence of pulmonary embolism, suspected bronchogenic carcinoma with associated obstruction of the right lower lobe proximal bronchus segment, 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 adenopathy and suspected to left lower lobe metastatic nodule -02/26 Bronch->mucous, no lesion noted -02/27 CT chest read: right mainstem bronchus patent with small amount of interval bronchial fluid which may be mucus (this may account for the appearance of the prior CTA chest fluid-filled airway rather than entering bronchial lesion), previously seen complete left lower lobe since related to bronchial occlusion has significantly improved, there is persistent compressive atelectasis in the right lower lung secondary to the pleural effusion, bilateral pleural effusions, right lung pneumonia -CT neck showed no acute changes -s/p steroids GI: Moderate protein calorie malnutrition -24 hours -1295 mL -PPI -NTR consulted for tube feedings -BR: Senokot S : NAD -Monitor intake and output -Renally dose medications -Avoid nephrotoxic medications -Trend BMP ID: UTI, Aspiration PNA (resolved), sacral wound (POA) -UA with pyuria, mod LE with leukocytosis -WOCN consulted -Dressing changes per nursing -S/p Rocephin for 5 days (02/19-02/24), (03/28-03/30) -Monitor WBC and temperature curve Endo: NAD -Avoid hypoglycemia -Accu-Cheks every 6 -Avoid hypoglycemia Heme: NAD -Trend CBC -Transfuse hemoglobin less than 7 -SCDs to BLE while in bed Dispo: -Guardianship granted -trach /peg 04/07 -LTACH placement pending The high probability of a clinically significant, sudden or life threatening deterioration of the [resp] system(s) required my full and direct attention, intervention and personal management. The aggregate critical care time was [60] minutes. This time is in addition to time spent performing reported procedures but includes the following: [x] Data Review and interpretation [x] Patient assessment and monitoring of vital signs [x] Documentation [x] Medication orders and management Disposition Plan: icu Total Time Spent with Patient (Minutes): 60 History Interval history: This is a 51-year-old male with HTN, seizure disorder, Down syndrome, HLD, and partial blindness was a resident of the [facility] who presented to emergency department on 02/19 for evaluation of change in mental status. Of note patient was recently discharged a few weeks ago for a seizure disorder and UTI. Upon arrival to the emergency department patient was noted to be hypoxic with SPO2 in the 80s on a nonrebreather with difficulty breathing. Work-up in the emergency department revealed CXR which showed elevation of the right hemidiaphragm, right lower lung atelectasis and effusion with mild increased pulmonary vascularity but no pneumothorax and CT of the head did not show any acute abnormality. 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 Patient was admitted to the hospitalist service to the floor. Hospital course to date: 02/19/2022. Consult pulmonary for further evaluation and possible bronchoscopy. I suspect patient has component of aspiration pneumonia as well. We will obtain a speech therapy evaluation for swallowing and start empiric antibiotics. Continue O2 supplementation to maintain sats greater than 92%. 02/20/2022. Pulmonary feels that the abnormality seen on CT scan is highly unlikely for a mass given negative chest x-ray 1 month ago and no risk factors. Etiology is likely secondary to aspiration from possibly a foreign body most likely food with atelectasis of the right lower lobe. Bronchoscopy is needed in the case to evaluate to see if lung mass is there vs foreign body, but at this time not able to do because no identifiable person that is able to give consent. Continue aspiration precautions and continue speech therapy evaluation for swallowing. Keep n.p.o. for now 02/21/2022. Patient remains NPO. Consider DHT placement. Follow-up with speech therapy evaluation. Pulmonology to consider bronchoscopy if able to obtain consent. Continue IV antibiotics for aspiration pneumonia 02/22/2022. Patient remains NPO. Consider DHT placement. Follow-up with speech therapy evaluation. Pulmonology to consider bronchoscopy if able to obtain consent. Continue IV antibiotics for aspiration pneumonia 02/23/2022. DHT placed yesterday. TF initiated for nutritional support. Patient currently with strict NPO. Aspiration precautions. Pulmonology to consider bronchoscopy if able to obtain consent. Continue IV antibiotics for aspiration pneumonia 02/24: Patient was transferred to the ICU for further monitoring. This morning patient remained on high flow nasal cannula on 40 L/100% and despite repeated nasotracheal suctioning patient SPO2 remained in the 80s. Patient was placed on nonrebreather and SPO2 increased to upper 80s. Patient was subsequently intubated by anesthesia. Started on sedation. 02/25: Patient remains sedated on fentanyl, potassium and magnesium repleted. IV fluids and amlodipine discontinued. Possible bronchoscopy tomorrow. 02/26: Patient had a bronchoscopy today which showed mucus and no endobronchial lesions or masses. FiO2 was increased to 100 during and postprocedure weaning as tolerated. Repeat CXR is much improved after bronc. Given 1 L LR bolus due to hypotension. No acute events reported overnight. 02/27: Decreased PEEP, will repeat CT of chest. no acute changes overnight. 02/28: Patient was extubated today however had to be be intubated shortly after. Patient ETT looked mispositioned on x-ray and Dr. Alonzo did do a bedside bronc. Patient was briefly hypotensive and on Levophed postintubation however Levophed was quickly titrated off and patient did not require central line. No acute events reported overnight. Will obtain CT neck d/t difficulty intubating. Ethic committee consulted. 03/01: Overnight patient was hypotensive and started on IVF. Patient started on steroids as no air leak noted and hypotension and given 2 L LR 03/02: Overnight patient received bolus per RN report, no orders seen. Continue supportive care. 03/04: MAIDA overnight. Remains stable on the vent. Awaiting on desicion from ethics community for possible trach and PEG. Continue current supportive measures 03/05: MAIDA overnight. Awaiting on desicion from ethics community for possible trach and PEG. Midodrine held yesterday, HR improved. Continue current supportive measures. Daily PSV trial as tolerated per [facility] 03/06: Remains stable on the vent. Continue current supportive measures, daily PSV trial per CCM. Awaiting on desicion for possible trach and PEG. 03/07: MAIDA overnight, remains stable. Continue daily PSV trial as tolerated. Awaiting on desicion for possible trach and PEG. 03/08: Patient failed PSV trial this am due to tachycardia and increase RR. Continue supportive measures and daily PSV trial as tolerated. Possible discussion with ethics and [facility] on Thursday in regards to medical necessity, may need to consider two physician consent if no one is able to claim responsibility for this patient. 03/09: MAIDA overnight. Continue current supportive measures and daily PSV trail as tolerated. Awaiting on decision for possible trach and PEG, discussion with E thics possibly tomorrow per [facility]. 03/10: no acute events overnight, PSV today. replete potassium. 03/11: No acute events reported overnight, patient failed PSV yesterday and will repeat today. Hospital to start guardianship process. 03/12: No acute events overnight. PSV today 03/13: Patient given 500ml normal saline and started on midodrine for hypotension. No acute events reported overnight. Failed pressure support again this morning. 03/14: No acute events reported overnight, patient blood pressure seems better therefore midodrine discontinued. RT placed on CPAP need lasted for couple luis manuel rs. Will remove summers 03/15: Midodrine was restarted yesterday evening for hypotension, Summers catheter not removed due to sacral ulcer and history of retention. Unable to crush Flomax and patient will not tolerate doxazosin given hypotension. Given LR bolus this morning. If blood pressure continues to be borderline after bolus, we will adjust management as needed. CPAP as tolerated 03/16: No acute events reported overnight, patient placed on CPAP trial this morning which he failed. 03/17: RT attempted PSV which he failed again today. No acute events reported overnight. 03/18: Awaiting ethic committee's decision on Trach/PEG. Patient tolerated PSV trial for over 3 hrs today, continue daily PSV trial as tolerated. 03/19: MAIDA overnight. Continue current supportive measures. Daily PSV trial as tolerated. Awaiting on desicion for possible trach and PEG. 03/20: MAIDA overnight. Daily PSV trial as tolerated. Awaiting decision on guardianship for trach and PEG. 03/21: Remains stable, condition unchanged. Continue supportive measures and daily PSV trial as tolerated. 03/22: MAIDA overnight. Continue current supportive measures. Daily PSV trial as tolerated 03/23: MAIDA overnight, continue supportive measures and daily PSV trial as tolerated. 03/24: Condition unchanged. Still waiting on Ethics' decision for possible trach/Peg. Continue supportive measures and daily PSV trial as tolerated. 03/25: PSV attempt today, does open eyes to stimuli, no acute events overnight. 03/26: Yesterday evening Summers catheter was removed as he was due to be changed, condom cath placed. Overnight patient had good urine output and per RN repeated bladder scans showed less than 200 mL of urine. We will continue to monitor urine output. RT to attempt PSV 03/27: Patient has leukocytosis today and UA has pyuria with moderate LE therefore he will be started on antibiotics. 03/28: Leukocytosis improving. No acute events reported overnight. 03/29: No acute events overnight. Continue supportive care. 03/30: no acute events overnight, PSV again. 03/31: Condition unchanged, remains on low vent setting. Possible Ethics meeting today and tomorrow for possible guardianship. Will consult General Surgery for p ossible trach and Peg once guardianship decision has been made. Continue supportive measures and daily PSV trial as tolerated 04/01: Remains stable on the vent. Court hearing today, awaiting decision on appointed guardian by the the [facility]. Continue current supportive measures and daily PSV trial as tolerated 04/02: MAIDA overnight. Stable on the vent. Awaiting on desicion on appointed guardian. Continue current supportive measures and daily PSV trial as tolerated. 04/03: Awaiting on desicion on appointed guardian. Continue current supportive measures and daily PSV trial as tolerated 04/04: Guardian appointed by the [facility]. Plan for possible trach and Peg by early next week. Continue current supportive measures and daily PSV trial as tolerated 04/05: Continue current supportive measures and daily PSV trial as tolerated. Plan for possible trach and Peg next week. 04/06: MAIDA overnight. Possible trach and Peg next week. Continue current supportive measures and daily PSV trial as tolerated. 04/07: Patient will be taken to the OR today for trach/PEG. No acute events reported overnight. 04/08: Continue PSV, no acute events. Hospitalist Physical - Constitutional Vitals: Temp Pulse Resp BP Pulse Ox 100.1 F H 106 H 23 127/74 93 04/08/22 07:09 04/08/22 10:01 04/08/22 10:01 04/08/22 10:01 04/08/22 10:01 General appearance: Present: no acute distress, well-nourished - EENT Eyes: Present: PERRL, EOM intact - Respiratory Respiratory effort: normal Respiratory: bilateral: rhonchi - Cardiovascular Rhythm: regular Heart Sounds: Present: S1 & S2. Absent: systolic murmur, diastolic murmur - Extremities Extremities: no ischemia, pulses intact, pulses symmetrical, No edema, normal temperature, normal color Peripheral Pulses: within normal limits - Abdominal General gastrointestinal: soft, non-tender, normal bowel sounds - Integumentary Integumentary: Present: warm, dry - Neurologic Neurologic: moves all extremities - Allied Health Allied health notes reviewed: nursing, RT HEART Score - HEART Score Troponin: Troponin T < 0.010 ng/mL (0.00-0.029) 02/18/22 21:02 Results - Labs CBC & Chem 7: 04/07/22 03:55 04/07/22 03:55 Labs: Laboratory Last Values WBC 11.2 K/mm3 (4.5-11.0) H 04/07/22 03:55 RBC 3.55 M/mm3 (3.65-5.03) L 04/07/22 03:55 Hgb 10.8 gm/dl (11.8-15.2) L 04/07/22 03:55 Hct 34.2 % (35.5-45.6) L 04/07/22 03:55 MCV 97 fl (84-94) H 04/07/22 03:55 MCH 30 pg (28-32) 04/07/22 03:55 MCHC 31 % (32-34) L 04/07/22 03:55 RDW 18.6 % (13.2-15.2) H 04/07/22 03:55 Plt Count 352 K/mm3 (140-440) 04/07/22 03:55 Lymph % (Auto) 7.5 % (13.4-35.0) L 03/28/22 04:06 Bryan % (Auto) 10.5 % (0.0-7.3) H 03/28/22 04:06 Eos % (Auto) 0.9 % (0.0-4.3) 03/28/22 04:06 Baso % (Auto) 0.4 % (0.0-1.8) 03/28/22 04:06 Lymph # (Auto) 1.1 K/mm3 (1.2-5.4) L 03/28/22 04:06 Bryan # (Auto) 1.5 K/mm3 (0.0-0.8) H 03/28/22 04:06 Eos # (Auto) 0.1 K/mm3 (0.0-0.4) 03/28/22 04:06 Baso # (Auto) 0.1 K/mm3 (0.0-0.1) 03/28/22 04:06 Add Manual Diff Complete 03/03/22 03:54 Total Counted 100 03/03/22 03:54 Seg Neutrophils % 80.7 % (40.0-70.0) H 03/28/22 04:06 Seg Neuts % (Manual) 95.0 % (40.0-70.0) H 03/03/22 03:54 Band Neutrophils % 0 % 03/03/22 03:54 Lymphocytes % (Manual) 3.0 % (13.4-35.0) L 03/03/22 03:54 Reactive Lymphs % (Man) 0 % 03/03/22 03:54 Monocytes % (Manual) 2.0 % (0.0-7.3) 03/03/22 03:54 Eosinophils % (Manual) 0 % (0.0-4.3) 03/03/22 03:54 Basophils % (Manual) 0 % (0.0-1.8) 03/03/22 03:54 Metamyelocytes % 0 % 03/03/22 03:54 Myelocytes % 0 % 03/03/22 03:54 Promyelocytes % 0 % 03/03/22 03:54 Blast Cells % 0 % 03/03/22 03:54 Nucleated RBC % Not Reportable 03/03/22 03:54 Seg Neutrophils # 11.4 K/mm3 (1.8-7.7) H 03/28/22 04:06 Seg Neutrophils # Man 18.5 K/mm3 (1.8-7.7) H 03/03/22 03:54 Band Neutrophils # 0.0 K/mm3 03/03/22 03:54 Lymphocytes # (Manual) 0.6 K/mm3 (1.2-5.4) L 03/03/22 03:54 Abs React Lymphs (Man) 0.0 K/mm3 03/03/22 03:54 Monocytes # (Manual) 0.4 K/mm3 (0.0-0.8) 03/03/22 03:54 Eosinophils # (Manual) 0.0 K/mm3 (0.0-0.4) 03/03/22 03:54 Basophils # (Manual) 0.0 K/mm3 (0.0-0.1) 03/03/22 03:54 Metamyelocytes # 0.0 K/mm3 03/03/22 03:54 Myelocytes # 0.0 K/mm3 03/03/22 03:54 Promyelocytes # 0.0 K/mm3 03/03/22 03:54 Blast Cells # 0.0 K/mm3 03/03/22 03:54 WBC Morphology Not Reportable 03/03/22 03:54 Hypersegmented Neuts Not Reportable 03/03/22 03:54 Hyposegmented Neuts Not Reportable 03/03/22 03:54 Hypogranular Neuts Not Reportable 03/03/22 03:54 Smudge Cells Not Reportable 03/03/22 03:54 Toxic Granulation Not Reportable 03/03/22 03:54 Toxic Vacuolation Not Reportable 03/03/22 03:54 Dohle Bodies Not Reportable 03/03/22 03:54 Pelger-Huet Anomaly Not Reportable 03/03/22 03:54 Lakshmi Rods Not Reportable 03/03/22 03:54 Platelet Estimate Consistent w auto 03/03/22 03:54 Clumped Platelets Not Reportable 03/03/22 03:54 Plt Clumps, EDTA Not Reportable 03/03/22 03:54 Large Platelets Not Reportable 03/03/22 03:54 Giant Platelets Not Reportable 03/03/22 03:54 Platelet Satelliting Not Reportable 03/03/22 03:54 Plt Morphology Comment Not Reportable 03/03/22 03:54 RBC Morphology Not Reportable 03/03/22 03:54 Dimorphic RBCs Not Reportable 03/03/22 03:54 Polychromasia Not Reportable 03/03/22 03:54 Hypochromasia Not Reportable 03/03/22 03:54 Poikilocytosis Not Reportable 03/03/22 03:54 Anisocytosis 1+ 03/03/22 03:54 Microcytosis Not Reportable 03/03/22 03:54 Macrocytosis Not Reportable 03/03/22 03:54 Spherocytes Not Reportable 03/03/22 03:54 Pappenheimer Bodies Not Reportable 03/03/22 03:54 Sickle Cells Not Reportable 03/03/22 03:54 Target Cells Not Reportable 03/03/22 03:54 Tear Drop Cells Not Reportable 03/03/22 03:54 Ovalocytes Not Reportable 03/03/22 03:54 Helmet Cells Not Reportable 03/03/22 03:54 [place] Bodies Not Reportable 03/03/22 03:54 [place] Rings Not Reportable 03/03/22 03:54 [place] Cells Not Reportable 03/03/22 03:54 Bite Cells Not Reportable 03/03/22 03:54 Crenated Cell Not Reportable 03/03/22 03:54 Elliptocytes Not Reportable 03/03/22 03:54 Acanthocytes (Spur) Not Reportable 03/03/22 03:54 Rouleaux Not Reportable 03/03/22 03:54 Hemoglobin C Crystals Not Reportable 03/03/22 03:54 Schistocytes Not Reportable 03/03/22 03:54 Malaria parasites Not Reportable 03/03/22 03:54 Cash Bodies Not Reportable 03/03/22 03:54 Hem Pathologist Commnt No 03/03/22 03:54 PT 15.0 Sec. (12.2-14.9) H 04/07/22 03:55 INR 1.06 (0.87-1.13) 04/07/22 03:55 APTT 33.4 Sec. (24.2-36.6) 04/06/22 08:47 ABG pH 7.392 pH Units (7.350-7.450) 03/22/22 14:25 ABG pCO2 54.4 mm Hg 03/22/22 14:25 ABG pO2 150.5 mm Hg (80.0-90.0) H 03/22/22 14:25 ABG HCO3 32.4 mmol/L (20.0-26.0) H 03/22/22 14:25 ABG O2 Saturation 98.8 % (95.0-99.0) 03/22/22 14:25 ABG O2 Content 15.8 (0.0-44) 03/22/22 14:25 ABG Base Excess 6.2 mmol/L (-2.0-3.0) H 03/22/22 14:25 ABG Hemoglobin 11.4 gm/dl (14.0-18.0) L 03/22/22 14:25 ABG Carboxyhemoglobin 1.6 % (0.0-5.0) 03/22/22 14:25 ABG Methemoglobin 0.6 % (0.0-1.5) 03/22/22 14:25 Oxyhemoglobin 96.6 % (95.0-99.0) 03/22/22 14:25 FiO2 30 % 03/22/22 14:25 Sodium 137 mmol/L (137-145) 04/07/22 03:55 Potassium 5.0 mmol/L (3.6-5.0) 04/07/22 03:55 Chloride 97.7 mmol/L (98-107) L 04/07/22 03:55 Carbon Dioxide 31 mmol/L (22-30) H 04/07/22 03:55 Anion Gap 13 mmol/L 04/07/22 03:55 BUN 21 mg/dL (9-20) H 04/07/22 03:55 Creatinine 0.6 mg/dL (0.8-1.3) L 04/07/22 03:55 Estimated GFR > 60 ml/min 04/07/22 03:55 BUN/Creatinine Ratio 35 % 04/07/22 03:55 Glucose 94 mg/dL (75-100) 04/07/22 03:55 POC Glucose 128 mg/dL (70-105) H 04/08/22 05:59 Lactic Acid 1.20 mmol/L (0.7-2.0) 02/18/22 21:02 Calcium 8.9 mg/dL (8.4-10.2) 04/07/22 03:55 Phosphorus 4.00 mg/dL (2.5-4.5) 04/07/22 03:55 Magnesium 1.90 mg/dL (1.7-2.3) 04/07/22 03:55 Total Bilirubin 0.30 mg/dL (0.1-1.2) 03/10/22 03:57 AST 17 units/L (5-40) 03/10/22 03:57 ALT 18 units/L (7-56) 03/10/22 03:57 Alkaline Phosphatase 89 units/L (35-129) 03/10/22 03:57 Ammonia 14.0 umol/L (25-60) L 02/18/22 23:22 Troponin T < 0.010 ng/mL (0.00-0.029) 02/18/22 21:02 Total Protein 6.6 g/dL (6.3-8.2) 03/10/22 03:57 Albumin 1.9 g/dL (3.9-5) L 03/10/22 03:57 Albumin/Globulin Ratio 0.4 % 03/10/22 03:57 Urine Color Yellow (Yellow) 03/27/22 08:36 Urine Turbidity Cloudy (Clear) 03/27/22 08:36 Urine pH 7.0 (5.0-7.0) 02/18/22 Unknown Ur Specific [place] 1.015 (1.003-1.030) 02/18/22 Unknown Specific [place] (Man) 1.020 (1.003-1.030) 03/27/22 08:36 Urine Protein <15 mg/dl mg/dL (Negative) 02/18/22 Unknown Ur Protein (Man) 1+ mg/dL (Negative) 03/27/22 08:36 Urine Glucose (UA) Negative mg/dL (Negative) 02/18/22 Unknown Urine Ketones Negative mg/dL (Negative) 02/18/22 Unknown Ur Ketones (Man) Negative (Negative) 03/27/22 08:36 Urine Blood Trace (Negative) 02/18/22 Unknown Urine Nitrite Negative (Negative) 02/18/22 Unknown Ur Nitrite (Man) Negative (Negative) 03/27/22 08:36 Ur Reducing Substances Not Reportable 03/27/22 08:36 Urine Bilirubin Negative (Negative) 02/18/22 Unknown Urine Bilirubin (Man) Negative (Negative) 03/27/22 08:36 Urine Ictotest Not Reportable 03/27/22 08:36 Urine Urobilinogen < 2.0 mg/dL (<2.0) 02/18/22 Unknown Ur Leukocyte Esterase Negative (Negative) 02/18/22 Unknown Leukocyte Esterase (Man) Moderate (Negative) 03/27/22 08:36 Urine WBC (Auto) > 182.0 /HPF (0.0-6.0) H 03/27/22 08:36 Urine RBC (Auto) 9.0 /HPF (0.0-6.0) 03/27/22 08:36 U Epithel Cells (Auto) < 1.0 /HPF (0-13.0) 03/27/22 08:36 Urine RBC (Manual) 1+ (Negative) 03/27/22 08:36 Urine Mucus Few /HPF 03/27/22 08:36 Urine Yeast (Budding) 2+ /HPF 03/27/22 08:36 Urine Opiates Screen Negative 02/18/22 Unknown Urine Methadone Screen Negative 02/18/22 Unknown Ur Barbiturates Screen Negative 02/18/22 Unknown Ur Phencyclidine Scrn Negative 02/18/22 Unknown Ur Amphetamines Screen Negative 02/18/22 Unknown U Benzodiazepines Scrn Negative 02/18/22 Unknown Urine Cocaine Screen Negative 02/18/22 Unknown U Marijuana (THC) Screen Negative 02/18/22 Unknown Drugs of Abuse Note Disclamer 02/18/22 Unknown Plasma/Serum Alcohol < 0.01 % (0-0.07) 02/18/22 21:02 Summers/IV: Voiding Method Indwelling Catheter Active Medications - Current Medications Current Medications: Generic Name Dose Route Start Last Admin Trade Name Freq PRN Reason Stop Dose Admin Acetaminophen 650 mg 03/03/22 09:00 Acetaminophen 325 Mg/10.15 Ml Oral Liqd Unit Dose FEEDTUBE Q4H PRN Pain, Mild (1-3); TEMP > 100.4 Albuterol 2.5 mg 03/12/22 20:00 04/08/22 08:18 Albuterol 2.5 Mg/3 Ml Nebu IH 2.5 mg Q6HRT LAZARUS Administration Famotidine 20 mg 02/25/22 10:00 04/08/22 09:11 Famotidine 20 Mg Tab FEEDTUBE 20 mg BID LAZARUS Administration Heparin Sodium (Porcine) 5,000 unit 02/19/22 06:00 04/08/22 06:20 Heparin 5,000 Unit/1 Ml Vial SUB-Q 5,000 unit Q8HR LAZARUS Administration Levetiracetam 500 mg 02/25/22 22:00 04/08/22 09:11 Levetiracetam 500 Mg/5 Ml Oral Liqd FEEDTUBE 500 mg BID LAZARUS Administration Levothyroxine Sodium 25 mcg 02/26/22 06:00 04/08/22 06:20 Levothyroxine 25 Mcg Tab FEEDTUBE 25 mcg QAM@0600 LAZARUS Administration Magnesium Hydroxide 30 ml 02/19/22 02:02 04/03/22 04:14 Magnesium Hydroxide (Mom) Oral Liqd Udc PO 30 ml Q4H PRN Administration Constipation Midodrine 5 mg 04/03/22 12:00 04/08/22 09:11 Midodrine 5 Mg Tab FEEDTUBE 5 mg TID@0800,1200,1600 LAZARUS Administration Multi-Ingred Cream/Lotion/Oil/Oint 1 applic 02/24/22 15:05 Mineral Oil/Petrolatum, White Ophth Oint 3.5 Gm OU Q4HR PRN Dry Eye(s) Ondansetron HCl 4 mg 02/19/22 02:02 Ondansetron 4 Mg/2 Ml Inj IV Q8H PRN Nausea And Vomiting Pravastatin Sodium 40 mg 02/25/22 22:00 04/07/22 23:06 Pravastatin 40 Mg Tab FEEDTUBE 40 mg QHS LAZARUS Administration Senna/Docusate Sodium 1 tab 02/24/22 22:00 04/08/22 09:11 Sennosides/Docusate Sodium 8.6/50 Mg Tab FEEDTUBE 1 tab BID LAZARUS Administration Sodium Chloride 10 ml 02/19/22 10:00 04/08/22 09:11 Sodium Chloride 0.9% 10 Ml Flush Syringe IV 10 ml BID LAZARUS Administration Sodium Chloride 10 ml 02/19/22 02:02 03/03/22 14:21 Sodium Chloride 0.9% 10 Ml Flush Syringe IV 10 ml PRN PRN Administration LINE FLUSH Nutrition/Malnutrition Assess - Dietary Evaluation Nutrition/Malnutrition Findings: Nutrition Notes Start: 02/19/22 14:29 Freq: Status: Active Protocol: Document 04/04/22 13:07 IVAN (Rec: 04/04/22 13:10 IVAN [id number]) Nutrition Notes Initial or Follow up Brief Note Current Diet TF - Promote at 65ml/hr Subjective/Other Information Observed Promote infusing at goal rate of 65ml/hr. Pt tolerating TF at goal rate. BM documented on 04/01 and 04/03 . Pt remains on vent support. Percent of energy/protein needs met: 98% energy 100% pro Nutrition Intervention Follow-Up By: 04/11/22 Additional Comments F/U: stable TF, vent status, trach/PEG placement, BM
--- NOTE | 2022-04-08 13:15 | Discharge Summary ---
Providers - Providers Date of Admission: 02/19/22 02:02 Date of discharge: 04/08/22 Attending physician: SILVIA BUCHANAN MD 02/19/22 01:41 Consult to Physician [CONS] Urgent Comment: Consulting Provider: EMILY RALPH Physician Instructions: Reason For Exam: lung mass 02/19/22 02:14 Consult to Case Management [CONS] Routine Services Needed at Discharge: Chief Revenue Officer Notified:: senior case manager Comment:: For placement 02/19/22 02:15 Physical Therapy Evaluation and Treat [CONS] Routine Comment: Reason For Exam: Inability to perform ADLs 02/19/22 06:08 Consult to Wound/ET Nurse [CONS] Routine Reason For Exam: wound eval 02/19/22 09:48 Speech Therapy Evaluation and Treat [CONS] Routine Reason For Exam: possible asp 02/22/22 11:04 Consult to Dietitian/Nutrition [CONS] Routine Physician Instructions: Reason For Exam: Reason for Consult: Write/Manage Tube Feeding 02/24/22 15:05 Consult to Dietitian/Nutrition [CONS] Routine Physician Instructions: Reason For Exam: Reason for Consult: Evaluate nutritional intake 02/28/22 10:28 Consult to Ethics Committee [CONS] Routine Reason For Exam: consent for trach 03/10/22 10:34 Consult to Physician [CONS] Routine Comment: called office/[facility] Consulting Provider: JUANITA CANCHOLA Physician Instructions: Reason For Exam: trach/peg 03/14/22 09:18 Consult to Wound/ET Nurse [CONS] Routine Reason For Exam: wound eval, sacral wound Primary care physician: MAURICIO BOCANEGRA Hospitalization Condition: Stable Hospital course: This is a 51-year-old male with HTN, seizure disorder, Down syndrome, HLD, and partial blindness was a resident of the [facility] who presented to emergency department on 02/19 for evaluation of change in mental status. Of note patient was recently discharged a few weeks ago for a seizure disorder and UTI. Upon arrival to the emergency department patient was noted to be hypoxic with SPO2 in the 80s on a nonrebreather with difficulty breathing. Work-up in the emergency department revealed CXR which showed elevation of the right hemidiaphragm, right lower lung atelectasis and effusion with mild increased pulmonary vascularity but no pneumothorax and CT of the head did not show any acute abnormality. 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 Patient was admitted to the hospitalist service to the floor. Patient was started on antibiotics for suspected aspiration pneumonia on 02/19. On 02/[address] scan and stated it was highly unlikely for mass given negative chest x-ray given a month ago with risk factors but a bronchoscopy will be needed to evaluate further. On 02/23 patient was started on tube feedings. On 02/24 patient was transferred to ICU for further monitoring as he was on high flow nasal cannula and despite nasal tracheal suctioning patient's SPO2 remained in the 80s and was placed on a nonrebreather however patient was later intubated and initiated sedation. On 02/26 patient had a bronchoscopy which showed a mucous plug and no intraoperative bronchial lesions or mass and repeat CXR post bronc was improved and patient was given IV fluids due to hypotension. On 02/28 patient was extubated but was reintubated shortly after for bronc was performed due to possible malposition of ETT patient was on Levophed briefly and a CT neck was ordered. Ethic was also called consulted due to possible need for trach/PEG and no guardian for consent available. On 03/01 patient was started on steroids and given more IV fluids due to hypotension. Patient was also started on midodrine due to hypotension. Patient experienced severe bradycardia and midodrine was ultimately discontinued but then restarted later in during hospital course for hypotension at a lower dose. Patient had been failing pressure support trials throughout hospital stay. Patient eventually did require second dose of antibiotics and due to urinary tract infection. Horowitz catheter was unable to be removed due to inability to crush Flomax and doxazosin not initiated due to hypotension. Patient did eventually received a trach/PEG yesterday on 04/07 and 2 patient has been restarted. Patient had a CPAP trial today. Patient will be transferred to LTAC for further weaning. Patient will need to follow-up with PCP and pulmonology at discharge. Assessment and plan: Neuro: h/o seizure disorder, Down syndrome, partial blindness -Reorientation as needed -Maintain sleep-wake cycle -aspiration/seizure precautions -As needed analgesia -CT head showed no acute abnormality -Continue Keppra Cardiac: h/o HTN, HLD -Cardiology consulted, appreciate recommendations -Blood pressure monitoring per protocol -PO Midodrine Respiratory: Acute hypoxic respiratory failure, ruled out bronchogenic carcinoma -CCM consulted, appreciate recommendations -Intubated on 02/24 with a 8.0 at 23 at the lips but extubated 02/28 -reintubated 02/28 with 8.0 OETT -Vent settings: CPAP 06/24 -See RT notes for titration -VAP bundle -SPO2 monitoring per protocol -02/18 CTA chest showed no evidence of pulmonary embolism, suspected bronchogenic carcinoma with associated obstruction of the right lower lobe proximal bronchus segment, 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 adenopathy and suspected to left lower lobe metastatic nodule -02/26 Bronch->mucous, no lesion noted -02/27 CT chest read: right mainstem bronchus patent with small amount of interval bronchial fluid which may be mucus (this may account for the appearance of the prior CTA chest fluid-filled airway rather than entering bronchial lesion), previously seen complete left lower lobe since related to bronchial occlusion has significantly improved, there is persistent compressive atelectasis in the right lower lung secondary to the pleural effusion, bilateral pleural effusions, right lung pneumonia -CT neck showed no acute changes -s/p steroids GI: Moderate protein calorie malnutrition -24 hours -1295 mL -PPI -NTR consulted for tube feedings -BR: Senokot S : NAD -Monitor intake and output -Renally dose medications -Avoid nephrotoxic medications -Trend BMP ID: UTI, Aspiration PNA (resolved), sacral wound (POA) -UA with pyuria, mod LE with leukocytosis -WOCN consulted -Dressing changes per nursing -S/p Rocephin for 5 days (02/19-02/24), (03/28-03/30) -Monitor WBC and temperature curve Endo: NAD -Avoid hypoglycemia -Accu-Cheks every 6 -Avoid hypoglycemia Heme: NAD -Trend CBC -Transfuse hemoglobin less than 7 -SCDs to BLE while in bed Dispo: -Guardianship granted -trach /peg 04/07 -LTACH placement pending Disposition: [facility] Final Discharge Diagnosis (Prints w/discharge instructions): h/o seizure disorder, Down syndrome, partial blindness. h/o HTN, HLD. Acute hypoxic respiratory failure, ruled out bronchogenic carcinoma. Moderate protein calorie malnutrition. UTI (resolved). Aspiration PNA (resolved), sacral wound (POA) Time spent for discharge: 60 Core Measure Documentation - Palliative Care Palliative Care/ Comfort Measures: Not Applicable - Core Measures Any of the following diagnoses?: none Exam - Constitutional Vitals: Temp Pulse Resp BP Pulse Ox 98.2 F 102 H 12 111/60 94 04/08/22 11:36 04/08/22 13:00 04/08/22 13:00 04/08/22 13:00 04/08/22 13:00 General appearance: Present: no acute distress - EENT Eyes: Present: PERRL, EOM intact ENT: dentition normal - Neck Neck: Present: normal ROM - Respiratory Respiratory effort: normal Respiratory: bilateral: diminished, rhonchi - Cardiovascular Rhythm: regular Heart Sounds: Present: S1 & S2. Absent: systolic murmur, diastolic murmur - Extremities Extremities: no ischemia, pulses intact, pulses symmetrical, No edema, normal temperature, normal color Peripheral Pulses: within normal limits - Abdominal General gastrointestinal: Present: soft, non-tender, non-distended, normal bowel sounds - Integumentary Integumentary: Present: warm, dry - Psychiatric Psychiatric: other - Neurologic Neurologic: other - Allied Health Allied health notes reviewed: nursing, RT, social work Plan Activity: advance as tolerated Diet: per dietitian instruction Wound: per wound nurse instructions Special Instructions: record daily weights, record daily BP diary, record blood sugar diary Follow up with: MAURICIO BOCANEGRA MD [Primary Care Provider] - 7 Days
[2022-04-08 17:15] VITALS: BP 136/73
--- NOTE | 2022-04-08 18:27 | Progress Note ---
Assessment and Plan 61 yo M with VDRF s/p percutaneous tracheostomy, fiberoptic bronchoscopy, PEG tube placement. POD 1 Vent settings: FIO2 30%, PEEP 6 Plan: 1. Vent management per ICU 2. TF at goal via peg 3. offloading 4. Trach care as per protocol 5. Will s/o. Thank you, please call with questions or concerns. Subjective Date of service: 04/08/22 Narrative: Pt seen and examined. No overnight events. Remains on minimal vent settings. Tolerating tube feeds at goal. Objective Vital Signs - 12hr 04/08/22 04/08/22 04/08/22 07:00 07:09 08:00 Temperature 100.1 F H Pulse Rate 100 H 95 H Pulse Rate [ Anterior Bilateral Throughout] Pulse Rate [ 95 H From Monitor] Respiratory 14 14 Rate Respiratory Rate [Anterior Bilateral Throughout] Blood Pressure 102/66 106/69 O2 Sat by Pulse 98 99 Oximetry O2 Sat by Pulse Oximetry [ Assessment] 04/08/22 04/08/22 04/08/22 08:20 08:30 09:00 Temperature Pulse Rate 96 H 102 H Pulse Rate [ 108 H Anterior Bilateral Throughout] Pulse Rate [ From Monitor] Respiratory 18 Rate Respiratory 18 Rate [Anterior Bilateral Throughout] Blood Pressure 106/89 99/53 O2 Sat by Pulse 97 94 Oximetry O2 Sat by Pulse 96 Oximetry [ Assessment] 04/08/22 04/08/22 04/08/22 09:22 10:01 11:00 Temperature Pulse Rate 106 H 107 H Pulse Rate [ Anterior Bilateral Throughout] Pulse Rate [ From Monitor] Respiratory 23 22 Rate Respiratory Rate [Anterior Bilateral Throughout] Blood Pressure 127/74 119/75 O2 Sat by Pulse 93 93 94 Oximetry O2 Sat by Pulse Oximetry [ Assessment] 04/08/22 04/08/22 04/08/22 11:36 11:53 12:00 Temperature 98.2 F Pulse Rate 107 H 109 H Pulse Rate [ Anterior Bilateral Throughout] Pulse Rate [ 105 H From Monitor] Respiratory 16 Rate Respiratory Rate [Anterior Bilateral Throughout] Blood Pressure 111/78 119/75 O2 Sat by Pulse 95 95 Oximetry O2 Sat by Pulse Oximetry [ Assessment] 04/08/22 04/08/22 04/08/22 13:00 13:52 14:00 Temperature Pulse Rate 102 H 105 H Pulse Rate [ 105 H Anterior Bilateral Throughout] Pulse Rate [ From Monitor] Respiratory 12 10 L Rate Respiratory 19 Rate [Anterior Bilateral Throughout] Blood Pressure 111/60 130/64 O2 Sat by Pulse 94 96 Oximetry O2 Sat by Pulse Oximetry [ Assessment] 04/08/22 04/08/22 04/08/22 15:01 15:47 16:00 Temperature Pulse Rate 112 H 114 H 110 H Pulse Rate [ Anterior Bilateral Throughout] Pulse Rate [ 110 H From Monitor] Respiratory 22 23 Rate Respiratory Rate [Anterior Bilateral Throughout] Blood Pressure 142/94 142/94 199/78 O2 Sat by Pulse 95 95 90 Oximetry O2 Sat by Pulse 95 Oximetry [ Assessment] 04/08/22 04/08/22 16:54 17:00 Temperature 97.9 F Pulse Rate 109 H Pulse Rate [ Anterior Bilateral Throughout] Pulse Rate [ From Monitor] Respiratory 21 Rate Respiratory Rate [Anterior Bilateral Throughout] Blood Pressure 136/73 O2 Sat by Pulse 93 Oximetry O2 Sat by Pulse Oximetry [ Assessment] - General physical appearance Narrative Exam: Gen.: Opens eyes spontaneously and does not follow commands. No apparent distress ENT: Trachea midline. Tracheostomy in place without swelling, hematoma, b leeding. No lymphadenopathy. No scleral icterus or conjunctival pallor CV: S1, S2 present Respiratory: No audible wheezes Abdomen: Soft, nondistended, nontender. PEG in place with bumper at 4cm without tension. No rebound, rigidity, guarding - Labs 04/07/22 03:55 04/07/22 03:55
== END 2022-04-08 17:50 | DRG 3 ==
LOC: ED 18:20 → 4A 02-19 02:02 → CC1 02-23 15:57
PROVIDERS: ADMIT Internal Medicine Geriatric Medicine; ATTEND Internal Medicine
PROC: 4A033R1 Measurement of Arterial Saturation, Peripheral, Percutaneous Approach (ICD-10-PCS; 2022-02-18)
PROC: 5A0935A Assistance with Respiratory Ventilation, Less than 24 Consecutive Hours, High Flow/Velocity Cannula (ICD-10-PCS; 2022-02-23)
PROC: 0BH17EZ Insertion of Endotracheal Airway into Trachea, Via Natural or Artificial Opening (ICD-10-PCS; principal; 2022-02-24)
PROC: 5A1955Z Respiratory Ventilation, Greater than 96 Consecutive Hours (ICD-10-PCS; 2022-02-24)
PROC: 0WCQ8ZZ Extirpation of Matter from Respiratory Tract, Via Natural or Artificial Opening Endoscopic (ICD-10-PCS; 2022-02-26)
PROC: 0B113F4 Bypass Trachea to Cutaneous with Tracheostomy Device, Percutaneous Approach (ICD-10-PCS; 2022-04-07)
PROC: 0BJ08ZZ Inspection of Tracheobronchial Tree, Via Natural or Artificial Opening Endoscopic (ICD-10-PCS; 2022-04-07)
PROC: 0DH63UZ Insertion of Feeding Device into Stomach, Percutaneous Approach (ICD-10-PCS; 2022-04-07)
DX: J69.0 Pneumonitis due to inhalation of food and vomit (principal); J96.01 Acute respiratory failure with hypoxia; G93.40 Encephalopathy, unspecified; E44.0 Moderate protein-calorie malnutrition; E87.0 Hyperosmolality and hypernatremia; G91.2 (Idiopathic) normal pressure hydrocephalus; E87.3 Alkalosis; N39.0 Urinary tract infection, site not specified; R56.9 Unspecified convulsions; R91.8 Other nonspecific abnormal finding of lung field; F79 Unspecified intellectual disabilities; Q90.9 Down syndrome, unspecified; Z68.24 Body mass index [BMI] 24.0-24.9, adult; S31.000A Unspecified open wound of lower back and pelvis without penetration into retroperitoneum, initial encounter; X58.XXXA Exposure to other specified factors, initial encounter; Y93.89 Activity, other specified; Y92.89 Other specified places as the place of occurrence of the external cause; Y99.8 Other external cause status; I10 Essential (primary) hypertension; E78.5 Hyperlipidemia, unspecified; J98.09 Other diseases of bronchus, not elsewhere classified; E87.6 Hypokalemia; E83.39 Other disorders of phosphorus metabolism; E87.8 Other disorders of electrolyte and fluid balance, not elsewhere classified; I95.9 Hypotension, unspecified; E03.9 Hypothyroidism, unspecified; Z88.6 Allergy status to analgesic agent
CPT/HCPCS: 31720; 36415; 36600; 70450; 70490; 71045; 71250; 71275; 74018; 80048; 80053; 80307; 80320; 81001; 82140; 82803; 82962; 83735; 84100; 84484; 85007; 85025; 85027; 85610; 85730; 87070; 87205; 93005; 94002; 94003; 94640; 94667; 94668; 94669; 94760; G0378; J2354; J3490; J7510; G0480; J0171; J0330; J0696; J1644; J1720; J2250; J2704; J3010; J3480; J7030; J7040; J7120; Q9967